=== PATIENT | female | born 1965 | race Caucasian/White ===

== ENCOUNTER 2018-03-24 19:01 | Observation (INO) | payer SELFPAY ==
[2018-03-24] MEDS ORDERED: FAMOTIDINE 20 MG/2 ML VIAL IV ONE (20:40)
[2018-03-24] MEDS ORDERED: FENTANYL CITR 100 MCG/2 ML ONE (20:40)
[2018-03-24] MEDS ORDERED: ONDANSETRON 4 MG/2 ML VIAL ONE (20:40)
[2018-03-24 20:42] LABS: Absolute Lymphocytes (CBC) 2.2 K/uL (0.7-4.9); Absolute Monocytes 0.3 K/uL (0.1-1.3); Absolute Neutrophil 3.5 K/uL (1.8-8.0); Basophils % 0.5 % (0-1.3); Eosinophils % 1.3 % (0-4.4); Hematocrit 33.4 % (36.0-45.0); Lymphocytes % 35.9 % (15.3-44.8); MCH 27.8 pg (27.0-35.0); MCV 83.3 fL (80-100); MPV 7.6 fL (7.6-11.3); Monocytes % 5.6 % (3.3-12.3); RBC Red Blood Cell Count 4.01 M/uL (3.86-4.86)
[2018-03-24 20:52] LABS: Urine Blood NEGATIVE (NEG); Urine Glucose 2+ (NEG); Urine Protein NEGATIVE (NEG); Urine Specific Gravity 1.005 (1.005-1.030)
--- NOTE | 2018-03-24 21:03 | RAD REPORT ---
EXAM DESCRIPTION: RAD - Chest Single View - 03/24/2018 8:17 pm CLINICAL HISTORY: Abdominal pain, abdominal distention COMPARISON: June 2014 TECHNIQUE: AP portable chest image was obtained 2010 hours . FINDINGS: Lungs are clear. Rounded nodule left base is likely nipple shadow. Heart and vasculature a re normal. No measurable pleural effusion and no pneumothorax. No acute bony abnormality seen. No acu te aortic findings suspected. IMPRESSION: No acute cardiopulmonary process.
[2018-03-24 21:07] LABS: Protime INR 1.06
[2018-03-24 21:08] LABS: ALT/SGPT 15 U/L (12-78); AST/SGOT 9 U/L (15-37); Albumin 3.9 g/dL (3.4-5.0); Alkaline Phosphatase 130 U/L (45-117); BUN Blood Urea Nitrogen 17 mg/dL (7-18); Bicarbonate 26 mmol/L (21-32); Bilirubin Direct 0.1 mg/dL (0-0.2); Bilirubin Total 0.3 mg/dL (0.2-1.0); Lipase 187 U/L (73-393); Magnesium 2.2 mg/dL (1.8-2.4); NT PRO-BNP 28 pg/mL (<125); Potassium 4.3 mmol/L (3.5-5.1); Protein, Total 8.2 g/dL (6.4-8.2); Sodium Level 130 mmol/L (136-145); Troponin (Emerg Dept Use Only) < 0.02 ng/mL (0.0-0.045)
[2018-03-24 21:16] LABS: Glucose Level 457 mg/dL (74-106)
[2018-03-24] MEDS ORDERED: INSULIN -REGULAR HUMAN 50 UNIT/0.5 ML ML ONE (23:20)
[2018-03-24] MEDS ORDERED: NA CHLORIDE 0.9% 1,000 ML ONE ×2 (23:21→23:24)
--- NOTE | 2018-03-25 00:41 | ER ---
Nurse's Notes [facility] Name: Melissa De Oliveira Age: 52 yrs Sex: Female : 1965 Arrival Date: 03/24/2018 Time: 19:04 Bed 26 Private MD: None, None Diagnosis: Abdominal tenderness;Gastritis, unspecified;Type 1 diabetes mellitus;Gastroparesis Presentation: 03/24 19:25 Presenting complaint: Patient states: that she has a knot to her epigastric area since Friday. Increased reflux and unable to eat solid food. Transition of care: patient was not received from another setting of care. Onset of symptoms was March 20, 2018. Risk Assessment: Do you want to hurt yourself or someone else? Patient reports no desire to harm self or others. Initial Sepsis Screen: Does the patient meet any 2 criteria? HR > 90 bpm. Yes Does the patient have a suspected source of infection? No. Patient's initial sepsis screen is negative. Care prior to arrival: None. 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 - Social history:: Smoking status: Patient/guardian denies using tobacco, Patient/guardian denies using alcohol. - Ebola Screening: : Patient negative for fever greater than or equal to 101.5 degrees Fahrenheit, and additional compatible Ebola Virus Disease symptoms Patient denies exposure to infectious person Patient denies travel to an Ebola-affected area in the 21 days before illness onset. - Family history:: not pertinent. Screenin:35 Abuse screen: Denies threats or abuse. Denies injuries from another. Nutritional kr2 screening: No deficits noted. Tuberculosis screening: No symptoms or risk factors identified. Fall Risk None identified. Assessment: 19:30 General: Appears in no apparent distress. uncomfortable, well groomed, well developed, kr2 well nourished, Behavior is calm, cooperative, appropriate for age. Pain: Complains of pain in left upper quadrant and right upper quadrant and epigastric area Pain does not radiate. Pain currently is 8 out of 10 on a pain scale. Quality of pain is described as sharp, shooting, Is continuous, Alleviated by nothing. Aggravated by increased activity. Neuro: Level of Consciousness is awake, alert, obeys commands, Oriented to person, place, time, situation, Appropriate for age. Cardiovascular: Capillary refill < 3 seconds in bilateral fingers Patient's skin is warm and dry. Respiratory: Airway is patent Respiratory effort is even, unlabored, Respiratory pattern is regular, symmetrical. GI: Bowel sounds present X 4 quads. Abd is soft X 4 quads Abdomen is tender to palpation in epigastric area, right upper quadrant and left upper quadrant Reports nausea. : Urine is clear. EENT: Nares are clear Oral mucosa is moist. Derm: Skin is intact, is healthy with good turgor, Skin is pink, warm \\T\\ dry. Musculoskeletal: Circulation, motion, and sensation intact. 20:58 Reassessment: Pt finished oral contrast for CT. CT notified. ed1 22:00 Reassessment: Patient appears in no apparent distress at this time. Patient and/or kr2 family updated on plan of care and expected duration. Pain level reassessed. Patient is alert, oriented x 3, equal unlabored respirations, skin warm/dry/pink. 23:25 Reassessment: Patient refused insulin, states, "my blood sugar drops too fast". kr2 Provider notified. 03/25 00:27 Reassessment: Patient appears in no apparent distress at this time. Patient and/or kr2 family updated on plan of care and expected duration. Pain level reassessed. Patient is alert, oriented x 3, equal unlabored respirations, skin warm/dry/pink. 01:23 Reassessment: Patient and/or family updated on plan of care and expected duration. Pain bb level reassessed. Patient is alert, oriented x 3, equal unlabored respirations, skin warm/dry/pink. pt resting quietly, IV site intact, patent with fluids infusing awaiting room assignment. 02:28 Reassessment: Patient and/or family updated on plan of care and expected duration. Pain bb level reassessed. IV site intact, patent, report called to Malika BETH for room 424. Vital Signs: 03/24 19:28 BP 126 / 77; Pulse 92; Resp 18; Temp 99.1(O); Pulse Ox 100% on R/A; Weight 47.63 kg fc (R); Height 5 ft. 4 in. (162.56 cm) (R); Pain 7/10; 21:00 BP 124 / 70; Pulse 76; Resp 17; Pulse Ox 100% on R/A; kr2 23:06 BP 134 / 92; Pulse 79; Resp 19; Pulse Ox 99% ; kr2 03/25 00:28 BP 128 / 66; Pulse 73; Resp 16; Pulse Ox 100% on R/A; kr2 01:24 BP 140 / 82; Pulse 79; Resp 16 S; Temp 97.9(O); Pulse Ox 100% on R/A; bb 02:28 BP 138 / 73; Pulse 74; Resp 16 S; Pulse Ox 96% on R/A; bb 03/24 19:28 Body Mass Index 18.02 (47.63 kg, 162.56 cm) ED Course: 03/24 19:04 Patient arrived in ED. mr 19:05 None, None is Private Physician. mr 19:26 Triage completed. fc 19:28 Arm band placed on left wrist. Patient placed in an exam room, on a stretcher. fc 19:30 Yogesh Jimenez MD is Attending Physician. thomas 19:35 Patient has correct armband on for positive identification. Bed in low position. Call kr2 light in reach. Side rails up X 1. Adult w/ patient. Pulse ox on. NIBP on. 20:18 XRAY Chest (1 view) In Process Unspecified. EDMS 20:46 EKG done, by ED staff. ag4 22:45 CT Abd/Pelvis - W/Contrast In Process Unspecified. EDMS 23:15 Jennifer Carolina, KIRIT is Primary Nurse. kr2 03/25 00:40 Debby Marinelli MD is Hospitalizing Provider. thomas 01:24 No provider procedures requiring assistance completed. Patient admitted, IV remains in bb place. Administered Medications: 03/24 20:41 Drug: Zofran 4 mg Route: IVP; Site: right forearm; kr2 23:21 Follow up: Response: No adverse reaction; Nausea is decreased kr2 20:42 Drug: Pepcid 20 mg Route: IVP; Site: right forearm; kr2 23:22 Follow up: Response: No adverse reaction kr2 20:42 Drug: fentaNYL (PF) 25 mcg Route: IVP; Site: right forearm; kr2 21:00 Follow up: Response: No adverse reaction kr2 23:03 Drug: fentaNYL (PF) 25 mcg Route: IVP; Site: right forearm; kr2 23:22 Follow up: Response: No adverse reaction kr2 23:21 Drug: NS 0.9% 1000 ml Route: IV; Rate: 1 bolus; Site: right forearm; kr2 03/25 00:31 Follow up: Response: No adverse reaction; IV Status: Completed infusion kr2 03/24 23:21 Drug: NS 0.9% 1000 ml Route: IV; Rate: 1 bolus; Site: right antecubital; kr2 03/25 00:30 Follow up: Response: No adverse reaction; IV Status: Completed infusion kr2 03/24 23:21 Not Given (Patient Refused): Insulin Regular Human 10 units IVP once kr2 23:21 Not Given (Patient Refused): Insulin Regular Human 10 units Sub-Q once kr2 23:26 Not Given (Patient Refused): Insulin Regular Human 5 units Sub-Q once kr2 23:27 Not Given (Patient Refused): Insulin Regular Human 5 units IVP once kr2 12 00:50 Drug: ProTONIX 40 mg Route: IVP; Site: right antecubital; kr2 02:27 Follow up: Response: No adverse reaction bb 00:50 Drug: fentaNYL (PF) 25 mcg Route: IVP; Site: right antecubital; kr2 02:27 Follow up: Response: No adverse reaction bb Point of Care Testing: Blood Glucose: 03/24 23:23 Blood Glucose: 281 mg/dL; kr2 03/25 00:27 Blood Glucose: 239 mg/dL; kr2 Ranges: Outcome: 00:41 Decision to Hospitalize by Provider. thomas 01:24 Instructed on the need for admit. natasha 02:26 Admitted to Tele accompanied by tech, via stretcher, room 424, on monitor, Report bb called to Malika BETH 02:26 Condition: stable 02:38 Patient left the ED. natasha Signatures: Dispatcher [employer] EDYogesh Sainz MD MD cha Rivera, Silvina mr Aruntrent, Sangeetha, RN RN Rylie Amador RN RN Zoraida Robb, CUSTOMER CONTACT SPECIALIST CUSTOMER CONTACT SPECIALIST ed1 Jennifer Carolina RN RN kr2 Billy, Wade ag4
--- NOTE | 2018-03-25 00:42 | EDPHYS ---
Physician Documentation [facility] Name: Melissa De Oliveira Age: 52 yrs Sex: Female : 1965 Arrival Date: 03/24/2018 Time: 19:04 Bed 26 Private MD: None, None ED Physician Yogesh Jimenez HPI: 03/24 19:56 This 52 yrs old Female presents to ER via Ambulatory with complaints of thomas Abdominal Swelling. 19:56 The patient presents with abdominal pain in the epigastric area, in the upper abdomen. thomas Onset: The symptoms/episode began/occurred 3 day(s) ago. The symptoms do not radiate. Associated signs and symptoms: none. The symptoms are described as crampy, steady. Modifying factors: The symptoms are alleviated by nothing, the symptoms are aggravated by food. Severity of pain: At its worst the pain was mild moderate in the emergency department the pain is unchanged. The patient has not experienced similar symptoms in the past. 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 - Social history:: Smoking status: Patient/guardian denies using tobacco, Patient/guardian denies using alcohol. - Ebola Screening: : Patient negative for fever greater than or equal to 101.5 degrees Fahrenheit, and additional compatible Ebola Virus Disease symptoms Patient denies exposure to infectious person Patient denies travel to an Ebola-affected area in the 21 days before illness onset. - Family history:: not pertinent. ROS: 19:56 Constitutional: Negative for fever, chills, and weight loss, Eyes: Negative for injury, thomas pain, redness, and discharge, ENT: Negative for injury, pain, and discharge, Neck: Negative for injury, pain, and swelling, Cardiovascular: Negative for chest pain, palpitations, and edema, Respiratory: Negative for shortness of breath, cough, wheezing, and pleuritic chest pain, Back: Negative for injury and pain, : Negative for injury, bleeding, discharge, and swelling, MS/Extremity: Negative for injury and deformity, Skin: Negative for injury, rash, and discoloration, Neuro: Negative for headache, weakness, numbness, tingling, and seizure, Psych: Negative for depression, anxiety, suicide ideation, homicidal ideation, and hallucinations, Allergy/Immunology: Negative for hives, rash, and allergies, Endocrine: Negative for neck swelling, polydipsia, polyuria, polyphagia, and marked weight changes, Hematologic/Lymphatic: Negative for swollen nodes, abnormal bleeding, and unusual bruising. 19:56 Abdomen/GI: Positive for abdominal pain, nausea, of the epigastric area, right upper quadrant and left upper quadrant. Exam: 19:56 Constitutional: This is a well developed, well nourished patient who is awake, alert, thomas and in no acute distress. Head/Face: Normocephalic, atraumatic. Eyes: Pupils equal round and reactive to light, extra-ocular motions intact. Lids and lashes normal. Conjunctiva and sclera are non-icteric and not injected. Cornea within normal limits. Periorbital areas with no swelling, redness, or edema. ENT: Nares patent. No nasal discharge, no septal abnormalities noted. Tympanic membranes are normal and external auditory canals are clear. Oropharynx with no redness, swelling, or masses, exudates, or evidence of obstruction, uvula midline. Mucous membranes moist. Neck: Trachea midline, no thyromegaly or masses palpated, and no cervical lymphadenopathy. Supple, full range of motion without nuchal rigidity, or vertebral point tenderness. No Meningismus. Chest/axilla: Normal chest wall appearance and motion. Nontender with no deformity. No lesions are appreciated. Cardiovascular: Regular rate and rhythm with a normal S1 and S2. No gallops, murmurs, or rubs. Normal PMI, no JVD. No pulse deficits. Respiratory: Lungs have equal breath sounds bilaterally, clear to auscultation and percussion. No rales, rhonchi or wheezes noted. No increased work of breathing, no retractions or nasal flaring. Back: No spinal tenderness. No costovertebral tenderness. Full range of motion. Skin: Warm, dry with normal turgor. Normal color with no rashes, no lesions, and no evidence of cellulitis. MS/ Extremity: Pulses equal, no cyanosis. Neurovascular intact. Full, normal range of motion. Neuro: Awake and alert, GCS 15, oriented to person, place, time, and situation. Cranial nerves II-XII grossly intact. Motor strength 5/5 in all extremities. Sensory grossly intact. Cerebellar exam normal. Normal gait. Psych: Awake, alert, with orientation to person, place and time. Behavior, mood, and affect are within normal limits. 19:56 Abdomen/GI: Inspection: abdomen appears normal, Bowel sounds: normal, Palpation: mild abdominal tenderness, in the epigastric area, right upper quadrant and left upper quadrant. Vital Signs: 19:28 BP 126 / 77; Pulse 92; Resp 18; Temp 99.1(O); Pulse Ox 100% on R/A; Weight 47.63 kg (R); Height 5 ft. 4 in. (162.56 cm) (R); Pain 7/10; 21:00 BP 124 / 70; Pulse 76; Resp 17; Pulse Ox 100% on R/A; kr2 23:06 BP 134 / 92; Pulse 79; Resp 19; Pulse Ox 99% ; kr2 12 00:28 BP 128 / 66; Pulse 73; Resp 16; Pulse Ox 100% on R/A; kr2 01:24 BP 140 / 82; Pulse 79; Resp 16 S; Temp 97.9(O); Pulse Ox 100% on R/A; bb 02:28 BP 138 / 73; Pulse 74; Resp 16 S; Pulse Ox 96% on R/A; bb 03/24 19:28 Body Mass Index 18.02 (47.63 kg, 162.56 cm) MDM: 03/24 19:30 Patient medically screened. [facility] 19:58 Data reviewed: vital signs, nurses notes, lab test result(s), EKG, radiologic studies. [facility] 03/24 19:55 Order name: Urine Dipstick--Ancillary (enter results); Complete Time: 21:09 03/24 19:55 Order name: Basic Metabolic Panel; Complete Time: 22:40 [facility] 03/24 19:55 Order name: CBC with Diff; Complete Time: 20:47 [facility] 03/24 19:55 Order name: LFT's; Complete Time: 22:40 [facility] 03/24 19:55 Order name: Magnesium; Complete Time: 22:40 [facility] 03/24 19:55 Order name: NT PRO-BNP; Complete Time: 22:40 [facility] 03/24 19:55 Order name: PT-INR; Complete Time: 21:09 [facility] 03/24 19:55 Order name: Troponin (emerg Dept Use Only); Complete Time: 22:40 [facility] 03/24 19:55 Order name: XRAY Chest (1 view); Complete Time: 21:09 [facility] 03/24 19:55 Order name: Lipase; Complete Time: 22:40 [facility] 03/24 19:55 Order name: CT Abd/Pelvis - W/Contrast [facility] 03/24 19:55 Order name: Urine Culture [facility] 03/24 19:55 Order name: EKG; Complete Time: 19:57 [facility] 03/24 19:55 Order name: Cardiac monitoring; Complete Time: 20:43 [facility] 03/24 19:55 Order name: EKG - Nurse/Tech; Complete Time: 20:43 [facility] 03/24 19:55 Order name: IV Saline Lock; Complete Time: 20:43 [facility] 03/24 19:55 Order name: Labs collected and sent; Complete Time: 20:43 [facility] 03/24 19:55 Order name: O2 Per Protocol; Complete Time: 20:43 [facility] 03/24 19:55 Order name: O2 Sat Monitoring; Complete Time: 20:43 [facility] 03/24 19:55 Order name: Urine Dipstick-Ancillary (obtain specimen); Complete Time: 20:43 [facility] Administered Medications: 20:41 Drug: Zofran 4 mg Route: IVP; Site: right forearm; kr2 23:21 Follow up: Response: No adverse reaction; Nausea is decreased kr2 20:42 Drug: Pepcid 20 mg Route: IVP; Site: right forearm; kr2 23:22 Follow up: Response: No adverse reaction kr2 20:42 Drug: fentaNYL (PF) 25 mcg Route: IVP; Site: right forearm; kr2 21:00 Follow up: Response: No adverse reaction kr2 23:03 Drug: fentaNYL (PF) 25 mcg Route: IVP; Site: right forearm; kr2 23:22 Follow up: Response: No adverse reaction kr2 23:21 Drug: NS 0.9% 1000 ml Route: IV; Rate: 1 bolus; Site: right forearm; kr2 03/25 00:31 Follow up: Response: No adverse reaction; IV Status: Completed infusion kr2 03/24 23:21 Drug: NS 0.9% 1000 ml Route: IV; Rate: 1 bolus; Site: right antecubital; kr2 03/25 00:30 Follow up: Response: No adverse reaction; IV Status: Completed infusion kr2 03/24 23:21 Not Given (Patient Refused): Insulin Regular Human 10 units IVP once kr2 23:21 Not Given (Patient Refused): Insulin Regular Human 10 units Sub-Q once kr2 23:26 Not Given (Patient Refused): Insulin Regular Human 5 units Sub-Q once kr2 23:27 Not Given (Patient Refused): Insulin Regular Human 5 units IVP once kr2 03/25 00:50 Drug: ProTONIX 40 mg Route: IVP; Site: right antecubital; kr2 02:27 Follow up: Response: No adverse reaction bb 00:50 Drug: fentaNYL (PF) 25 mcg Route: IVP; Site: right antecubital; kr2 02:27 Follow up: Response: No adverse reaction bb Point of Care Testing: Blood Glucose: 03/24 23:23 Blood Glucose: 281 mg/dL; kr2 03/25 00:27 Blood Glucose: 239 mg/dL; kr2 Ranges: Critical Glucose Levels:Adult <50 mg/dl or >400 mg/dl <40 mg/dl or >180 mg/dl Disposition: 03/25/18 00:41 Hospitalization ordered by Debby Marinelli for Observation. Preliminary diagnosis are Abdominal tenderness, Gastritis, unspecified, Type 1 diabetes mellitus, Gastroparesis. - Bed requested for Telemetry/MedSurg (observation). - Status is Observation. bb - Condition is Stable. - Problem is new. - Symptoms have improved. UTI on Admission? No Signatures: Dispatcher [employer] EDMS Mayi Hooks RN RN mw Anderson, Corey, MD MD cha Chretien, Felicia RN Rylie Yarbrough RN RN bb Reaves, Karey, RN RN kr2 Corrections: (The following items were deleted from the chart) 00:55 00:41 Hospitalization Ordered by Debby Marinelli MD for Observation. Preliminary diagnosis is Abdominal tenderness; Gastritis, unspecified; Type 1 diabetes mellitus; Gastroparesis. Bed requested for Telemetry/MedSurg (observation). Status is Observation. Condition is Stable. Problem is new. Symptoms have improved. UTI on Admission? No. thomas 02:38 00:55 03/25/2018 00:41 Hospitalization Ordered by Debby Marinelli MD for Observation. bb Preliminary diagnosis is Abdominal tenderness; Gastritis, unspecified; Type 1 diabetes mellitus; Gastroparesis. Bed requested for Telemetry/MedSurg (observation). Status is Observation. Condition is Stable. Problem is new. Symptoms have improved. UTI on Admission? No. mw
[2018-03-25] MEDS ORDERED: FAMOTIDINE 20 MG/2 ML VIAL IV ONE (00:54)
[2018-03-25] MEDS ORDERED: NA CHLORIDE 0.9% 1,000 ML ONE (00:57)
--- NOTE | 2018-03-25 01:28 | P.HP ---
Certification for Inpatient Patient admitted to: Observation With expected LOS: <2 Midnights Practitioner: I am a practitioner with admitting privileges, knowledge of patient current condition, hospital course, and medical plan of care. Services: Services provided to patient in accordance with Admission requirements found in Title 42 Section 412.3 of the Code of Federal Regulations Patient History Date of Service: 03/25/18 Reason for admission: abdominal pain History of Present Illness: Ms De Oliveira is a 52 years old woman with history of IDDM, who presented to ED complaining of abdominal pain. Her symptoms started about 4 days ago, the pain is localized on epigastric area, no radiation, 8/10, burning sensation. She feels like a not in epigastric area. The patient has had nausea and vomiting, denied diarrhea and fever but she has had chills. The patient is not able to keep down solid food, but no problem with liquids. She has never had this pain in the past. Lab work remarkable for normal WBC count. BS 457, CT abd/pelvis report gastritis. Allergies morphine Allergy (Unverified 07/20/14 11:45) Unknown Home medications list reviewed: Yes - Past Medical/Surgical History -: DM I -: cholecystectomy -: hysterectomy -: appendectomy -: - Family History Family History: Reviewed- Non-Contributory - Social History Smoking Status: Former smoker Alcohol use: No CD- Drugs: No Place of Residence: Home Review of Systems 10-point ROS is otherwise unremarkable Physical Examination - Physical Exam General: Alert, In no apparent distress HEENT: Atraumatic, PERRLA, Mucous membr. moist/pink, EOMI, Sclerae nonicteric Neck: Supple, 2+ carotid pulse no bruit, No LAD, Without JVD or thyroid abnormality Respiratory: Clear to auscultation bilaterally, Normal air movement Cardiovascular: Regular rate/rhythm, Normal S1 S2 Gastrointestinal: Normal bowel sounds, Tenderness (epigastric area) Musculoskeletal: No tenderness Integumentary: No rashes Neurological: Normal speech, Normal strength at 5/5 x4 extr, Normal tone, Normal affect Lymphatics: No axilla or inguinal lymphadenopathy - Studies Laboratory Data (last 24 hrs) 03/24/18 20:34: PT 12.5, INR 1.06 03/24/18 20:34: WBC 6.2, Hgb 11.1 L, Hct 33.4 L, Plt Count 367 03/24/18 20:34: Sodium 130 L, Potassium 4.3, BUN 17, Creatinine 0.80, Glucose 457 H*, Magnesium 2.2, Total Bilirubin 0.3, AST 9 L, ALT 15, Alkaline Phosphatase 130 H, Lipase 187 Assessment and Plan - Problems (Diagnosis) (1) Gastritis Current Visit: Yes Status: Acute (2) Diabetes mellitus Current Visit: Yes Status: Acute Qualifiers: Diabetes mellitus type: type 1 Diabetes mellitus complication status: with unspecified complications Qualified Code(s): E10.8 - Type 1 diabetes mellitus with unspecified complications - Plan The patient will be admitted to the hospital due to gastritis. Will start PPI treatment, consult GI for evaluation and recommendations. - Advance Directives Does patient have a Living Will: No Does patient have a Durable POA for Healthcare: No - Code Status/Comfort Care Code Status Assessed: Yes Code Status: Full Code
[2018-03-25] MEDS ORDERED: ONDANSETRON 4 MG/2 ML VIAL IV PRN (02:24)
[2018-03-25] MEDS ORDERED: SODIUM CHLORIDE 0.9% 10ML INJ IV PRN (02:24)
[2018-03-25] MEDS: NA CHLORIDE 0.9% 1,000 ML IV SCH ×4 (03:09→22:24)
[2018-03-25 03:38] VITALS: BMI 18.0
[2018-03-25] MEDS: CALCIUM CARBONATE CHEW 500MG TAB PO PRN ×2 (03:49→17:18)
--- NOTE | 2018-03-25 06:59 | EKG ---
Test Date: 2018-03-24 Test Time: 20:25:46 Radar Tester: AG3 MEASUREMENT RESULTS: Intervals: Rate: 76 TX: 126 QRSD: 70 QT: 392 QTc: 441 [place]: P: 57 TX: 126 QRS: 67 T: 69 INTERPRETIVE STATEMENTS: Normal sinus rhythm Normal ECG Compared to ECG 03/24/2018 20:22:59 No significant changes Electronically Signed On 03-25-18 10:37:47 ELEMENTARY SCHOOL SCIENCE TEACHER by Thierno Nevarez
--- NOTE | 2018-03-25 07:29 | RAD REPORT ---
EXAM DESCRIPTION: CT - Abdomen Pelvis W Contrast - 03/25/2018 2:16 am CLINICAL HISTORY: Abdominal pain. COMPARISON: None. TECHNIQUE: Computed axial tomography of the abdomen and pelvis was obtained. 100 cc Isovue-300 is ad ministered intravenously. Oral contrast was given. Preliminary report generated by virtual radiologic and review prior to dictation All CT scans are performed using dose optimization technique as appropriate and may include automated exposure control or mA/KV adjustment according to patient size. FINDINGS: The gallbladder has been removed The liver, spleen, pancreas, adrenals and kidneys appear unremarkable. The appendix is not visualized. There is no evidence of diverticulitis A hysterectomy has been performed Wall of the distal stomach appears mildly thickened. A moderate amount stool within the colon IMPRESSION: Apparent mild thickening of the wall of the distal stomach may indicate gastritis
[2018-03-25] MEDS: INSULIN -REGULAR HUMAN 50 UNIT/0.5 ML ML SQ SCH ×4 (07:30→20:50)
[2018-03-25] MEDS: PANTOPRAZOLE 40 MG INJ IVP SCH ×2 (08:45→20:50)
[2018-03-25] MEDS ORDERED: MORPHINE 2 MG/ML SYR IV ONE (10:22)
[2018-03-25] MEDS ORDERED: PROPOFOL 200 MG/20 ML VIAL IV ONE (14:52)
[2018-03-25 15:19] VITALS: O2SAT 98
[2018-03-25] MEDS: SUCRALFATE 1 GM TABLET PO SCH ×2 (16:34→20:50)
[2018-03-25] MEDS: ONDANSETRON 4 MG/2 ML VIAL IV PRN ×2 (16:43→20:50)
--- NOTE | 2018-03-25 19:22 | PN ---
Date of Progress Note: 03/25/2018 Subjective: Patient seen and examined. Chart reviewed and case discussed with RN and Dr. Ayala. The patient is going for EGD today. Does report some discomfort in the epigastric region. Code Status: Full. Medications: List reviewed. Physical Examination: Vital Signs: Temperature 97.6, heart rate 90, blood pressure 139/75, respirations 16, O2 99% on room air. General: Awake, alert, oriented x3. Some mild distress. Ill-appearing female, cachectic, BMI 18. CV: S1, S2. Regular rate and rhythm. No murmurs. Respiratory: Moving air well bilaterally. No wheezing or stridor. Gastrointestinal: Abdomen is soft. Mild tenderness to palpation in the epigastric region. No rebou nd or guarding. No distention. Positive bowel sounds. Extremities: No clubbing, cyanosis, or edema. Neurologic: Nonfocal. Laboratory Data: Hemoglobin A1c greater than 16%. Glucose 210 and 237. Urine culture pending. CT scan of the abdomen and pelvis personally reviewed shows apparent mild thickening of the wall of the distal stomach, may indicate gastritis. Chest x-ray personally reviewed, shows no cardiopulmonary pr ocess. Assessment And Plan: A 52-year-old female with: 1.Acute gastritis. We will continue with IV PPI. GI has been consulted. The patient going for EGD today. 2.Diabetes mellitus type 1 with hyperglycemia. We will continue sliding scale insulin, resume home dose. 3.Hyponatremia. Sodium 130, likely pseudohyponatremia due to elevated glucose level. 4.Gastrointestinal and deep vein thrombosis prophylaxis with proton pump inhibitors and sequential c ompression devices. No chemical anticoagulation due to any procedure. 5.Likely discharge in the next 24 to 48 hours. The patient will need diabetic education. Adjust in sulin and medications. SA/MODL Voice ID: [id number] Report ID: [id number]
[2018-03-25] MEDS: ROPINIROLE HCL 0.25 MG TAB PO SCH (20:50)
[2018-03-25] MEDS: MORPHINE 2 MG/ML SYR IV PRN (22:04)
--- NOTE | 2018-03-26 03:02 | OP ---
Surgeon: Noe Ayala MD Procedure To Be Performed: Esophagogastroduodenoscopy. Performing Physician: Noe Ayala M.D. Indication For Procedure: Abnormal CT showing thickening of the stomach and intractable nausea, vomi ting. Plan For Anesthesia: Monitored anesthesia care. Complexity: Average. Technique: After obtaining informed consent from the patient and explaining risks and complications which include, but are not limited to bleeding, infection, perforation, and anesthesia complications, the patient was placed in a left lateral position and sedation was given. From then on, the scope w as advanced to the mouth and carefully guided up till the second portion of the duodenum. After the completion of examination and diagnostic maneuvers, the scope and equipment were withdrawn and the pr ocedure was terminated in a safe manner. Findings: Esophagus: In the mid and distal esophagus, there was evidence of LA grade B esophagitis that extended from distal to mid esophagus. A small hiatal hernia was seen as well. Biopsies were t aken from the esophagus. Stomach: There was moderate amount of retained bilious material. This was suctioned. Moderate patchy erythema was seen in the body and antrum. Biopsies were taken. No evid ence of neoplastic process or ulceration in the entire stomach. Duodenum: The bulb and second porti on appeared normal. Complications: None. Tolerance To Anesthesia: Excellent. Postoperative Diagnoses: Esophagitis, hiatal hernia, and gastritis. Plan: 1.Await pathology results. 2.Follow up in the GI clinic in 2 weeks. 3.We will add Carafate to her oral PPI. Strict control of diabetes as that is likely the contributo r. US/MODL Voice ID: [id number] Report ID: [id number]
[2018-03-26] MEDS: MORPHINE 2 MG/ML SYR IV PRN ×3 (04:11→22:34)
[2018-03-26] MEDS: ONDANSETRON 4 MG/2 ML VIAL IV PRN ×3 (04:11→22:34)
[2018-03-26 04:30] LABS: Absolute Lymphocytes (CBC) 1.7 K/uL (0.7-4.9); Absolute Monocytes 0.5 K/uL (0.1-1.3); Absolute Neutrophil 3.8 K/uL (1.8-8.0); Basophils % 0.6 % (0-1.3); Eosinophils % 1.8 % (0-4.4); Hematocrit 30.4 % (36.0-45.0); Lymphocytes % 27.4 % (15.3-44.8); MCH 28.2 pg (27.0-35.0); MCV 82.1 fL (80-100); Monocytes % 7.8 % (3.3-12.3)
[2018-03-26 04:31] LABS: BUN Blood Urea Nitrogen 7 mg/dL (7-18); Bicarbonate 21 mmol/L (21-32); Glucose Level 121 mg/dL (74-106); Potassium 3.7 mmol/L (3.5-5.1); Sodium Level 139 mmol/L (136-145)
[2018-03-26] MEDS: INSULIN -REGULAR HUMAN 50 UNIT/0.5 ML ML SQ SCH ×4 (07:30→21:00)
[2018-03-26] MEDS: PANTOPRAZOLE 40 MG INJ IVP SCH ×2 (08:30→20:54)
[2018-03-26] MEDS: SUCRALFATE 1 GM TABLET PO SCH ×4 (08:30→20:55)
[2018-03-26] MEDS: CALCIUM CARBONATE CHEW 500MG TAB PO PRN (08:31)
[2018-03-26] MEDS: NA CHLORIDE 0.9% 1,000 ML IV SCH ×3 (08:33→22:37)
[2018-03-26] MEDS: PREGABALIN 50 MG CAP PO SCH (08:43)
[2018-03-26] MEDS ORDERED: POTASSIUM CL SA 10 MEQ TAB PO ONE (09:00)
[2018-03-26] MEDS: INSULIN GLARGINE 100 UNITS/ML SQ SCH (09:00)
[2018-03-26] MEDS: METOCLOPRAMIDE 10 MG/2mL INJ IV SCH ×2 (10:14→15:33)
[2018-03-26] MEDS ORDERED: CEFTRIAXONE 1 GM/NS 50 ML 1 GM/50 ML BAG IV SCH (16:31)
[2018-03-26] MEDS ORDERED: CEFTRIAXONE/SWI 1gm 1 GM/10 ML SYR IV SCH (17:00)
[2018-03-26] MEDS: ENSURE CLEAR 200 ML CAN PO SCH (20:55)
[2018-03-26] MEDS: ROPINIROLE HCL 0.25 MG TAB PO SCH (21:08)
[2018-03-26] MEDS: METOCLOPRAMIDE 10MG/10ML UCUP PO SCH (21:27)
--- NOTE | 2018-03-26 21:35 | PN ---
Date of Progress Note: 03/26/2018 Subjective: The patient is seen and examined. Chart reviewed and case discussed with RN. The patient states that she is unable to tolerate her clear liquid diet, having dry heaves and any significant nausea. Medications: List reviewed. Physical Examination: Vital Signs: Temperature 98, heart rate 85, blood pressure 103/51, respirations 15, O2 98% on room air. General: Awake, alert, and oriented x3, in some mild distress, appears older than stated age, ill-appearing female, cachectic. BMI 18. CV: S1, S2. Peripheral pulses present. Regular rate and rhythm. Respiratory: Moving air well bilaterally. No wheezes or stridor. Gastrointestinal: Abdomen is soft. Minimal tenderness to palpation in the epigastric region. No rebound or guarding. Bowel sounds positive. No distention. Extremities: No clubbing, cyanosis, or edema. Neuro: Nonfocal. Laboratory Data: Sodium 139, potassium 3.7, chloride 108, CO2 21, BUN 7, creatinine 0.5, glucose 121,. WBC 6.1, H and H 10.4 and 30.4, platelets 320, neutrophils 62%. Assessment And Plan: 1. A 52-year-old female with epigastric abdominal pain. 2. Acute gastritis status post esophagogastroduodenoscopy. We will continue with IV PPI and Carafate. 3. Diabetes mellitus type 2 with hyperglycemia. We will continue sliding scale insulin. Uncontrolled hemoglobin, A1c greater than 16. The patient is unable to tolerate her diet. We will adjust Lantus dose. 4. Hyponatremia, likely pseudohyponatremia due to elevated blood glucose levels, normalized. 5. GI/DVT prophylaxis with PPI and SCDs. No chemical anticoagulation due to gastritis. Plan: Discharge will be in next 24-48 hours depending on clinical response. We will add Reglan for possible gastroparesis and advance diet as tolerated. SA/MODL Voice ID: [id number] Report ID: [id number] [facility]
[2018-03-27] MEDS: METOCLOPRAMIDE 10MG/10ML UCUP PO SCH ×2 (04:31→09:47)
[2018-03-27 07:07] LABS: BUN Blood Urea Nitrogen 3 mg/dL (7-18); Bicarbonate 22 mmol/L (21-32); Glucose Level 142 mg/dL (74-106); Potassium 3.6 mmol/L (3.5-5.1); Sodium Level 140 mmol/L (136-145)
[2018-03-27] MEDS ORDERED: POTASSIUM CL SA 10 MEQ TAB PO ONE (07:21)
[2018-03-27] MEDS: INSULIN -REGULAR HUMAN 50 UNIT/0.5 ML ML SQ SCH (07:30)
[2018-03-27] MEDS: INSULIN GLARGINE 100 UNITS/ML SQ SCH (08:14)
[2018-03-27] MEDS: PANTOPRAZOLE 40 MG INJ IVP SCH (08:15)
[2018-03-27] MEDS: SUCRALFATE 1 GM TABLET PO SCH (08:15)
[2018-03-27] MEDS: PREGABALIN 50 MG CAP PO SCH (08:17)
[2018-03-27] MEDS: ENSURE CLEAR 200 ML CAN PO SCH (08:20)
[2018-03-27 08:31] VITALS: BP 122/62; TEMP 98.9
--- NOTE | 2018-03-28 14:16 | DS ---
Date of Discharge: 03/27/2018 Consultants: Dr. Ayala with GI. Procedures: On 03/25/2018, esophagogastroduodenoscopy. Postoperative Diagnoses: Esophagitis, hiatal hernia, gastritis. Discharge Diagnoses: 1. Acute gastritis. 2. Diabetes mellitus type 2 with hyperglycemia, uncontrolled hemoglobin A1c greater than 16, insulin-requiring. 3. Pseudohyponatremia due to elevated glucose levels, improved. 4. Esophagitis. 5. Hiatal hernia. 6. Acute cystitis Hospital Course: Patient is a 52-year-old female with past medical history of diabetes mellitus type 2, on insulin, who comes in with abdominal pain. Patient was seen by GI. She was found to have gastritis on CT scan of the abdomen and pelvis. EGD was done by Dr. Ayala as mentioned above, found to have gastritis, esophagitis, and hiatal hernia. Patient was continued on PPI therapy as well as Carafate. Regarding her hemoglobin A1c, it was greater than 16%. Patient's blood sugars were not well controlled when she came in with greater than 457. Patient was counseled regarding her diabetes. Diabetic education was set up. Patient's insulin was adjusted. She was noncompliant with her insulin dose, supposed to take 35 units at home, which will be resumed upon discharge. Patient was also found to have UTI secondary to Klebsiella pneumonia, which was pansensitive. Patient was treated with IV antibiotics. Patient did well after being introduced to Reglan as patient does likely have gastroparesis resulting from her poorly controlled diabetes. Patient understands the risks associated and side effects associated with Reglan. She understands that medication should be used for a short duration of time and as her diabetes improves, she should not require as much. She was instructed to watch for signs of side effects of Reglan. She was understanding at this juncture, the benefits outweigh the risks due to her severe gastroparesis. Patient was then cleared for discharge as she was tolerating her diet and did not have any further abdominal pain and no bleeding, no melena. Patient was discharged home in a stable condition. Activity: As tolerated. Medications: As per medication reconciliation list. Patient's course of cefuroxime for UTI. Followup: Follow up with primary care physician in [place] 2-3 days. Follow up with GI, Dr. Ayala, in 2 weeks. She will look for diabetic education at outside facility. Return to ER for worsening condition. Diet: Diabetic diet. Activity: As tolerated. Physical Examination: General: Awake, alert, and oriented. No acute distress. Cardiovascular: S1, S2. No murmurs. Respiratory: Moving air well, bilaterally. Abdomen: Soft, nontender, nondistended. Positive bowel sounds. Extremities: No clubbing, cyanosis, or edema. Neurologic: Nonfocal. SA/MODL Voice ID: [id number] Report ID: [id number] [facility]ENTER[facility]annah
== END 2018-03-27 10:44 | disposition home or self-care (01) ==
LOC: ER 19:01 → ERHOLD 03-25 01:14 → 4TH 03-25 02:28
PROVIDERS: ADMIT Internal Medicine; ATTEND Internal Medicine
PROC: 0DB68ZX Excision of Stomach, Via Natural or Artificial Opening Endoscopic, Diagnostic (ICD-10-PCS; 2018-03-25)
PROC: 0DB58ZX Excision of Esophagus, Via Natural or Artificial Opening Endoscopic, Diagnostic (ICD-10-PCS; principal; 2018-03-25 12:00)
DX: K29.00 Acute gastritis without bleeding (principal); K44.9 Diaphragmatic hernia without obstruction or gangrene; K20.9 Esophagitis, unspecified; N30.00 Acute cystitis without hematuria; B96.1 Klebsiella pneumoniae [K. pneumoniae] as the cause of diseases classified elsewhere; E11.65 Type 2 diabetes mellitus with hyperglycemia; E87.1 Hypo-osmolality and hyponatremia
CPT/HCPCS: 36415; 71045; 74177; 80048; 80076; 81003; 82962; 83036; 83690; 83735; 83880; 84484; 85025; 85610; 87077; 87086; 87088; 87186; 88305; 88312; 93005; 99285; C9113; G0378; J0696; J2270; J2405; J2704; J2765; J3010; J7030; Q9967

== ENCOUNTER 2018-08-15 14:41 | Emergency (ER) | payer SELFPAY ==
--- OUTSIDE RECORDS SUMMARY | 2018-08-15 14:43 | XMS REPORT | Clinical Summary ---
:1965 Author Organization [facility] Address [address] [place] [address] Care Team Providers Name Role Phone Denae Primary Care Provider Allergies Active Allergy Reactions Severity Noted Date Comments Methylphenidate 05/07/2016 Medications Medication Sig Dispensed Refills Start Date End Date Status insulin glargine Inject 0 Active (LANTUS) 100 unit/mL subcutaneously injection nightly. Use as directed rOPINIRole (REQUIP) Take 1 mg by mouth 0 Active 1 MG tablet 3 (three) times daily. pregabalin (LYRICA) Take 50 mg by mouth 0 Active 50 MG capsule 3 (three) times daily. ondansetron (ZOFRAN) Take 1 tablet (4 mg 12 tablet 0 09/22/2017 4 MG tablet total) by mouth 8 every 6 (six) hours for 7 days. sulfamethoxazole-tri Take 1 tablet (160 14 tablet 0 09/22/2017 methoprim (BACTRIM mg of trimethoprim 8 DS) 800-160 mg per total) by mouth 2 tablet (two) times daily for 7 days smx-tmp DS (BACTRIM) 800-160 mg tabs (1tab q12 D10). nitrofurantoin, Take 1 capsule (100 14 capsule 0 10/07/2017 macrocrystal-monohyd mg total) by mouth 8 rate, (MACROBID) 100 2 (two) times daily MG capsule for 7 days. acetaminophen-codein Take 1 tablet by 9 tablet 0 10/07/2017 e (TYLENOL #3) mouth every 6 (six) 8 300-30 mg per tablet hours as needed for Pain for up to 3 days. Max Daily Amount: 4 tablets ondansetron Take 1 tablet (4 mg 20 tablet 0 10/07/2017 (ZOFRAN-ODT) 4 MG total) by mouth 8 disintegrating every 8 (eight) tablet hours as needed for Nausea for up to 7 days. Active Problems Not on file Encounters Date Type Specialty Care Team Description 10/06/2017 - Emergency Emergency Medicine Princess Livingston Neck sprain, initial encounter (Primary Dx); 10/07/2017 MD Bhaivk Hyperglycemia without ketosis; Acute cystitis without hematuria; Non-intractable vomiting with nausea, unspecified vomiting type 09/22/2017 Emergency Emergency Medicine Sabrina Jaimes DO Acute cystitis without hematuria (Primary Dx); Generalized abdominal pain; Hyperglycemia; Nausea; Dehydration 09/22/2017 Orders Only General Internal Medicine after 08/14/2017 Social History Tobacco Use Types Packs/Day Years Used Date Never Smoker Smokeless Tobacco: Never Used Alcohol Use Drinks/Week oz/Week Comments No Sex Assigned at Date Recorded Not on file Job Start Date Occupation Industry Not on file Not on file Not on file Travel History Travel Start Travel End No recent travel history available. Last Filed Vital Signs Vital Sign Reading Time Taken Blood Pressure 120/66 10/07/2017 1:02 AM CDT Pulse 80 10/07/2017 1:02 AM CDT Temperature 37.2 C (99 F) 10/07/2017 1:02 AM CDT Respiratory Rate 18 10/07/2017 1:02 AM CDT Oxygen Saturation 100% 10/07/2017 1:02 AM CDT Inhaled Oxygen Concentration - - Weight 48.1 kg (106 lb) 10/06/2017 9:03 PM CDT Height 162.6 cm (5' 4") 10/06/2017 9:03 PM CDT Body Mass Index 18.19 10/06/2017 9:03 PM CDT Plan of Treatment Not on file Procedures Procedure Name Priority Date/Time Associated Comments Diagnosis REPORT OF PROCEDURE - 10/08/2017 11:57 ENDOSCOPY SCAN AM CDT ED ECG INTERPRETATION Routine 10/07/2017 12:57 Results for this AM CDT procedure are in the results section. POCT-GLUCOSE METER Routine 10/07/2017 12:04 Results for this AM CDT procedure are in the results section. XR SPINE CERVICAL 2 OR STAT 10/06/2017 11:07 Results for this 3 VIEWS PM CDT procedure are in the results section. CT SPINE CERVICAL STAT 10/06/2017 10:44 Results for this WITHOUT IV CONTRAST PM CDT procedure are in the results section. CT BRAIN WITHOUT IV STAT 10/06/2017 10:44 Results for this CONTRAST PM CDT procedure are in the results section. CBC W/PLT COUNT & AUTO STAT 10/06/2017 10:17 Results for this DIFFERENTIAL PM CDT procedure are in the results section. TROPONIN I STAT 10/06/2017 10:17 Results for this PM CDT procedure are in the results section. AMYLASE STAT 10/06/2017 10:17 Results for this PM CDT procedure are in the results section. COMPREHENSIVE METABOLIC STAT 10/06/2017 10:17 Results for this PANEL PM CDT procedure are in the results section. CBC W/PLT COUNT & AUTO STAT 10/06/2017 10:17 Results for this DIFFERENTIAL PM CDT procedure are in the results section. POCT-GLUCOSE METER Routine 10/06/2017 9:50 Results for this PM CDT procedure are in the results section. URINALYSIS W/ STAT 10/06/2017 9:49 Results for this MICROSCOPIC PM CDT procedure are in the results section. URINE CULTURE Routine 10/06/2017 9:49 Results for this PM CDT procedure are in the results section. REPORT OF PROCEDURE - 09/23/2017 4:30 ENDOSCOPY SCAN PM CDT ED ECG INTERPRETATION Routine 09/22/2017 9:45 Results for this PM CDT procedure are in the results section. POCT-GLUCOSE METER Routine 09/22/2017 7:07 Results for this PM CDT procedure are in the results section. CT ABDOMEN/PELVIS WITH STAT 09/22/2017 6:19 Results for this IV CONTRAST PM CDT procedure are in the results section. BASIC METABOLIC PANEL STAT 09/22/2017 4:32 Results for this (7) PM CDT procedure are in the results section. CREATINE KINASE (CK), STAT 09/22/2017 4:19 Results for this TOTAL AND MB PM CDT procedure are in the results section. TROPONIN I STAT 09/22/2017 4:19 Results for this PM CDT procedure are in the results section. LIPASE STAT 09/22/2017 4:19 Results for this PM CDT procedure are in the results section. AMYLASE STAT 09/22/2017 4:19 Results for this PM CDT procedure are in the results section. CBC W/PLT COUNT & AUTO STAT 09/22/2017 4:07 Results for this DIFFERENTIAL PM CDT procedure are in the results section. URINALYSIS W/ STAT 09/22/2017 4:07 Results for this MICROSCOPIC PM CDT procedure are in the results section. CBC W/PLT COUNT & AUTO STAT 09/22/2017 4:07 Results for this DIFFERENTIAL PM CDT procedure are in the results section. URINE CULTURE Routine 09/22/2017 4:07 Results for this PM CDT procedure are in the results section. after 08/14/2017 Results EKG-SCANNED (10/08/2017 11:57 AM CDT)Only the most recent of2 resultswithin the time period is included. Narrative Performed At ED ECG Interpretation (10/07/2017 12:57 AM CDT)Only the most recent of2 resultswithin the time period is included. Narrative Performed At Princess Livingston MD 10/07/2017 12:57 AM ECG/EKG Interpretation Date/Time: 10/06/2017 10:19 PM Performed by: PRINCESS LIVINGSTON Authorized by: PRINCESS LIVINGSTON The ECG was interpreted by ED physician. This ECG was not compared with previous ECG(s).The ECG is interpreted as sinus rhythm. Rate is normal rate. Conduction: conduction normal. ST segments normal. T waves normal. [place] is normal. Other findings: no other findings. Clinical Impression: non-specific ECGECG reviewed and does not meet STEMI criteria. Patient tolerance: Patient tolerated the procedure well with no immediate complications POC-Glucose meter (10/07/2017 12:04 AM CDT)Only the most recent of3 resultswithin the time period is included. POC-Glucose Meter 277 (H)Comment: TESTED AT 70 - 110 mg/dL [facility] [address] [facility] [address] Specimen Blood Performing Organization Address City/State/Zipcode Phone Number [facility] [address] [place] [address] CENTER XR spine cervical 2 or 3 views (10/06/2017 11:07 PM CDT) Specimen Narrative Performed At FINAL REPORT [facility] RAD, SPINE, CERVICAL, 1 view. CLINICAL INDICATION:neck pain COMPARISON: None FINDINGS/IMPRESSION: A single lateral view of the cervical spine was obtained. The study is limited due to obliquity. Vertebral body height and and alignment is maintained. The intervertebral disc spaces are not well evaluated. There is no prevertebral soft tissue swelling. Signed: Kaity Grayson MD Report Verified Date/Time:10/06/2017 23:46:30 Reading Location: [address] Transitional Reading Room Procedure Note Interface, External Ris In - 10/06/2017 11:48 PM CDT FINAL REPORT RAD, SPINE, CERVICAL, 1 view. CLINICAL INDICATION: neck pain COMPARISON: None FINDINGS/IMPRESSION: A single lateral view of the cervical spine was obtained. The study is limited due to obliquity. Vertebral body height and and alignment is maintained. The intervertebral disc spaces are not well evaluated. There is no prevertebral soft tissue swelling. Signed: Kaity Grayson MD Report Verified Date/Time: 10/06/2017 23:46:30 Reading Location: [address] Transitional Reading Room Performing Organization Address City/State/Zipcode Phone Number [facility] CT spine cervical without IV contrast (10/06/2017 10:44 PM CDT) Specimen Narrative Performed At FINAL REPORT [facility] CT cervical spine without contrast INDICATION: Emesis and severe neck pain. COMPARISON: No prior study for direct comparison. TECHNIQUE: Multiple axial CT images of the cervical spine were obtained without contrast. Sagittal and coronal 2D reconstructions were provided as well. This exam was performed according to our departmental dose optimization program which includes automated exposure control, adjustment of the mA and/or kV according to patient's size and/or use of iterative reconstructive technique. FINDINGS: There is generalized osteopenia. Vertebral body height and alignment is within normal limits.There is a small lucency in the posterior C6 vertebral body without bony erosive change. The articular facets and posterior elements are intact. The atlantodental interval is maintained.The craniocervical junction is unremarkable. There is no acute cervical spine fracture. The intervertebral disc spaces are maintained. There is no significant osseous spinal or neuroforaminal stenosis. The prevertebral and paraspinal soft tissues are within normal limits. The visualized lung apices are clear. There are minimal atherosclerotic calcifications of the left carotid bulb. The visualized aerodigestive tract is unremarkable. IMPRESSION: No acute cervical spine fracture or traumatic malalignment. Small lucency in the C6 vertebral body, nonspecific. Differential diagnosis includes a cyst, intraosseous hemangioma or metastases/multiple myeloma.Clinical correlation is recommended. Bone scan or MRI may be performed for further evaluation as clinically warranted. Signed: Kaity Grayson MD Report Verified Date/Time:10/06/2017 23:44:40 Reading Location: [address] Transitional Reading Room Procedure Note Interface, External Ris In - 10/06/2017 11:46 PM CDT FINAL REPORT CT cervical spine without contrast INDICATION: Emesis and severe neck pain. COMPARISON: No prior study for direct comparison. TECHNIQUE: Multiple axial CT images of the cervical spine were obtained without contrast. Sagittal and coronal 2D reconstructions were provided as well. This exam was performed according to our departmental dose optimization program which includes automated exposure control, adjustment of the mA and/or kV according to patient's size and/or use of iterative reconstructive technique. FINDINGS: There is generalized osteopenia. Vertebral body height and alignment is within normal limits. There is a small lucency in the posterior C6 vertebral body without bony erosive change. The articular facets and posterior elements are intact. The atlantodental interval is maintained. The craniocervical junction is unremarkable. There is no acute cervical spine fracture. The intervertebral disc spaces are maintained. There is no significant osseous spinal or neuroforaminal stenosis. The prevertebral and paraspinal soft tissues are within normal limits. The visualized lung apices are clear. There are minimal atherosclerotic calcifications of the left carotid bulb. The visualized aerodigestive tract is unremarkable. IMPRESSION: No acute cervical spine fracture or traumatic malalignment. Small lucency in the C6 vertebral body, nonspecific. Differential diagnosis includes a cyst, intraosseous hemangioma or metastases/multiple myeloma. Clinical correlation is recommended. Bone scan or MRI may be performed for further evaluation as clinically warranted. Signed: Kaity Grayson MD Report Verified Date/Time: 10/06/2017 23:44:40 Reading Location: [address] Reading Room Performing Organization Address City/State/Zipcode Phone Number [facility] CT brain without IV contrast (10/06/2017 10:44 PM CDT) Specimen Narrative Performed At FINAL REPORT [employer] [facility] EXAMINATIONNONCONTRAST HEAD CT SCAN CLINICAL HISTORY:Severe occipital headache. Vomiting. COMPARISON CT: 05/07/2016 EPISODE OF CARE: Initial TECHNIQUE: Axial tomographic images were obtained through the brain from the vertex to the skull base without intravenous contrast. The exam was performed according to our departmental dose optimization program which includes automated exposure control, adjustment of the mA and/or kV according to patient's size and/or use of iterative reconstructive technique. FINDINGS: No evidence of acute intracranial hemorrhage, mass effect, midline shift, hydrocephalus, cerebral edema or abnormal extra-axial fluid collection. Although there are no definite findings to suggest evolving ischemia, CT is not sensitive for the detection of early or small infarcts. The orbits are unremarkable. Visualized paranasal sinuses, tympanic cavities and mastoid air cells are well pneumatized. No evidence of an acute skull fracture. IMPRESSION: No specific evidence of an acute cranial process. Note: If there is persistent clinical concern, consider MRI for further evaluation. Signed: Carla Oden MD Report Verified Date/Time:10/06/2017 23:24:44 Reading Location: [address] Reading Room Procedure Note Interface, External Ris In - 10/06/2017 11:26 PM CDT FINAL REPORT EXAMINATION NONCONTRAST HEAD CT SCAN CLINICAL HISTORY:Severe occipital headache. Vomiting. COMPARISON CT: 05/07/2016 EPISODE OF CARE: Initial TECHNIQUE: Axial tomographic images were obtained through the brain from the vertex to the skull base without intravenous contrast. The exam was performed according to our departmental dose optimization program which includes automated exposure control, adjustment of the mA and/or kV according to patient's size and/or use of iterative reconstructive technique. FINDINGS: No evidence of acute intracranial hemorrhage, mass effect, midline shift, hydrocephalus, cerebral edema or abnormal extra-axial fluid collection. Although there are no definite findings to suggest evolving ischemia, CT is not sensitive for the detection of early or small infarcts. The orbits are unremarkable. Visualized paranasal sinuses, tympanic cavities and mastoid air cells are well pneumatized. No evidence of an acute skull fracture. IMPRESSION: No specific evidence of an acute cranial process. Note: If there is persistent clinical concern, consider MRI for further evaluation. Signed: Carla Oden MD Report Verified Date/Time: 10/06/2017 23:24:44 Reading Location: [address] Reading Room Performing Organization Address City/State/Zipcode Phone Number GE RIS CBC with platelet count + automated diff (10/06/2017 10:17 PM CDT)Only the most recent of2 resultswithin the time period is included. WBC 10.9 (H) 4.0 - 10.0 K/L [facility] RBC 4.45 4.00 - 5.00 M/L [facility] Hemoglobin 12.2 12.0 - 15.0 GM/DL [facility] Hematocrit 37.0 36.0 - 45.0 % [facility] MCV 83.2 82.0 - 99.0 fL [facility] MCH 27.4 27.0 - 33.0 pg [facility] MCHC 32.9 32.0 - 36.0 GM/DL [facility] RDW 14.0 10.3 - 14.2 % [facility] Platelets 359 150 - 430 K/CU MM [facility] MPV 7.8 6.5 - 10.5 fL [facility] nRBC 0 0 - 0 /100 WBC [facility] % Neutros 71 % [facility] % Lymphs 23 % [facility] % Monos 5 % [facility] % Eos 0 % [facility] % Baso 1 % [facility] # Neutros 7.70 1.80 - 8.00 K/L [facility] # Lymphs 2.50 1.48 - 4.50 K/L [facility] # Monos 0.60 0.00 - 1.30 K/L [facility] # Eos 0.00 0.00 - 0.50 K/L [facility] # Baso 0.10 0.00 - 0.20 K/L [facility] Specimen Blood Performing Organization Address [facility] Phone Number [facility] [address] [place] [address] [phone] Troponin I (not available at [facility] [place]) (10/06/2017 10:17 PM CDT)Only the most recent of2 resultswithin the time period is included. Troponin I <0.03 0.00 - 0.15 ng/mL [facility] Specimen Blood Narrative Performed At [facility] Troponin I (TnI) levels must be interpreted in the context of the presenting symptoms and the clinical findings. Elevated TnI levels indicate myocardial damage, but are not specific for ischemic heart disease. Elevated TnI levels are seen in patients with other cardiac conditions (including myocarditis and congestive heart failure), and slight TnI elevations occur in patients with other conditions, including sepsis, renal failure, acidosis, acute neurological disease, and persistent tachyarrhythmia. Performing Organization Address City/[facility] Cent[facility]out Phone Number [place] [phone] [place] [address] Amylase (10/06/2017 10:17 PM CDT)Only the most recent of2 resultswithin the time period is included. Amylase 58 30 - 110 U/L [facility] Specimen Blood Performing Organization Address City/[facility] Phone Number [place] [phone] [place], [place] [phone] Comprehensive metabolic panel (10/06/2017 10:17 PM CDT) Protein, Total 8.5 6.0 - 8.5 gm/dL [facility] Albumin 4.3 3.5 - 5.0 g/dL [facility] Alkaline Phosphatase 126 (H) 30 - 115 U/L [facility] Total Bilirubin 0.5 0.1 - 1.2 mg/dL [facility] Sodium 134 (L) 135 - 148 meq/L [facility] Potassium 4.3 3.6 - 5.5 meq/L [facility] Chloride 97 (L) 98 - 106 meq/L [facility] CO2 24 20 - 29 meq/L [facility] BUN 17 10 - 26 mg/dL [facility] Creatinine 1.01 0.50 - 1.20 mg/dL [facility] Glucose 414 (HH) 70 - 110 mg/dL [facility] Calcium 9.6 8.5 - 10.5 mg/dL [facility] AST 11 5 - 40 U/L [facility] ALT 9 5 - 50 U/L [facility] EGFR 58Comment: ESTIMATED GFR mL/min/1.73 sq m [facility] IS NOT ACCURATE CREATININE CLEARANCE IN PREDICTING GLOMERULAR FILTRATION RATE. ESTIMATED GFR IS NOT APPLICABLE FOR DIALYSIS PATIENTS. Specimen Blood Performing Organization Address [facility] Phone Number [facility] [address] [place] [address] Urinalysis w/Microscopic (10/06/2017 9:49 PM CDT)Only the most recent of2 resultswithin the time period is included. Color, UA Yellow [facility] Clarity, UA Clear [facility] Specific [place], UA <=1.005 1.001 - 1.035 [facility] pH, UA 6.0 5.0 - 8.0 [facility] Protein, UA Negative Negative [facility] Glucose, UA >=1000 mg/dL (A) Negative [facility] Ketones, UA Negative Negative [facility] Bilirubin, UA Negative Negative [facility] Blood, UA Trace (A) Negative [facility] Nitrite, UA Positive (A) Negative [facility] Leukocytes, UA Negative Negative [facility] Urobilinogen, UA 0.2 0.2 - 1.0 mg/dL [facility] Bacteria, UA Many [facility] RBC, UA <5 /HPF [facility] WBC, UA 10-20 /HPF [facility] SQUAMOUS EPITHELIAL <5 /HPF [facility] Specimen Source [facility] Specimen Urine Performing Organization Address [facility] Cent[facility]out Phone Number [facility] [address] [place], [place] [address] [phone] Urine culture (10/06/2017 9:49 PM CDT)Only the most recent of2 resultswithin the time period is included. Result ESCHERICHIA COLI (A) [facility] Specimen Urine Organism Antibiotic Method Susceptibility Escherichia coli Ampicillin + Sulbactam 16: Intermediate Escherichia coli Cefepime <=1: Susceptible Escherichia coli Cefoxitin <=4: Susceptible Escherichia coli Ceftriaxone <=1: Susceptible Escherichia coli Gentamicin <=1: Susceptible Escherichia coli Levofloxacin >=8: Resistant Escherichia coli Meropenem <=0.25: Susceptible Escherichia coli Nitrofurantoin <=16: Susceptible Escherichia coli Piperacillin + Tazobactam <=4: Susceptible Escherichia coli Tetracycline <=1: Susceptible Escherichia coli Tobramycin <=1: Susceptible Escherichia coli Trimethoprim + Sulfamethoxazole <=20: Susceptible Performing Organization Address City/State/Zipcode Phone Number [place] [phone] [place], [place] [phone] CT abdomen/pelvis with IV contrast (09/22/2017 6:19 PM CDT) Specimen Narrative Performed At FINAL REPORT [facility] CT OF THE ABDOMEN AND PELVIS CLINICAL HISTORY:Abdominal pain TECHNIQUE: CT of the abdomen and pelvis is performed with intravenous contrast administration. This exam was performed according to our departmental dose-optimization program which includes automated exposure control, adjustment of the mA and/or kV according to patient size and/or use of iterative reconstruction technique. COMPARISON FILM:CT of the abdomen and pelvis from 07/07/2017 DISCUSSION: LOWER THORAX: Unremarkable. HEPATOBILIARY: Prior cholecystectomy. Mild prominence of the common bile duct, within normal limits after cholecystectomy. Main portal vein is patent. No definite focal liver lesion. PANCREAS: No pancreatic ductal dilation. No pancreatic lesion. SPLEEN: No splenomegaly. ADRENALS: No nodule. KIDNEYS/URETERS: No hydronephrosis or hydroureter. No obstructing renal or ureteral calculi. No definite solid renal lesion. No perinephric stranding. PELVIC ORGANS/BLADDER: Small amount of air in the nondependent portion of the bladder. GI TRACT: No bowel wall thickening or distention. PERITONEUM/RETROPERITONEUM: No free fluid or free air. LYMPH NODES: No upper abdominal, retroperitoneal, mesenteric, or pelvic lymphadenopathy. VESSELS: Abdominal aorta normal in caliber. BONES AND SOFT TISSUES: No destructive osseous lesion. IMPRESSION: 1. Small amount of air in the nondependent portion of the bladder. Suggest correlation with history as this finding may be seen with recent catheterization or instrumentation. In the absence of this history, presence of colovesicular or enterovesicular fistula should be considered. Correlation with urinalysis may also assist in further evaluation. 2. Findings of prior cholecystectomy. Mild prominence of the common bile duct, within normal limits after cholecystectomy. 3. Otherwise, no acute findings in the abdomen or pelvis. Signed: Gama Valdez MD Report Verified Date/Time:09/22/2017 19:16:29 Reading Location: [facility] Consult Reading Room Procedure Note Interface, External Ris In - 09/22/2017 7:18 PM CDT FINAL REPORT CT OF THE ABDOMEN AND PELVIS CLINICAL HISTORY: Abdominal pain TECHNIQUE: CT of the abdomen and pelvis is performed with intravenous contrast administration. This exam was performed according to our departmental dose-optimization program which includes automated exposure control, adjustment of the mA and/or kV according to patient size and/or use of iterative reconstruction technique. COMPARISON FILM: CT of the abdomen and pelvis from 07/07/2017 DISCUSSION: LOWER THORAX: Unremarkable. HEPATOBILIARY: Prior cholecystectomy. Mild prominence of the common bile duct, within normal limits after cholecystectomy. Main portal vein is patent. No definite focal liver lesion. PANCREAS: No pancreatic ductal dilation. No pancreatic lesion. SPLEEN: No splenomegaly. ADRENALS: No nodule. KIDNEYS/URETERS: No hydronephrosis or hydroureter. No obstructing renal or ureteral calculi. No definite solid renal lesion. No perinephric stranding. PELVIC ORGANS/BLADDER: Small amount of air in the nondependent portion of the bladder. GI TRACT: No bowel wall thickening or distention. PERITONEUM/RETROPERITONEUM: No free fluid or free air. LYMPH NODES: No upper abdominal, retroperitoneal, mesenteric, or pelvic lymphadenopathy. VESSELS: Abdominal aorta normal in caliber. BONES AND SOFT TISSUES: No destructive osseous lesion. IMPRESSION: 1. Small amount of air in the nondependent portion of the bladder. Suggest correlation with history as this finding may be seen with recent catheterization or instrumentation. In the absence of this history, presence of colovesicular or enterovesicular fistula should be considered. Correlation with urinalysis may also assist in further evaluation. 2. Findings of prior cholecystectomy. Mild prominence of the common bile duct, within normal limits after cholecystectomy. 3. Otherwise, no acute findings in the abdomen or pelvis. Signed: Gama Valdez MD Report Verified Date/Time: 09/22/2017 19:16:29 Reading Location: [facility] [id number] Consult Reading Room Performing Organization Address [facility] Phone Number GE RIS Basic Metabolic Panel (09/22/2017 4:32 PM CDT) Sodium 134 (L) 135 - 148 meq/L [facility] Potassium 5.1Comment: Specimen markedly 3.6 - 5.5 meq/L [facility] hemolyzed Chloride 98 98 - 106 meq/L [facility] CO2 16 (L) 20 - 29 meq/L [facility] BUN 9 (L) 10 - 26 mg/dL [facility] Creatinine 0.92Comment: Specimen markedly 0.50 - 1.20 mg/dL [facility] hemolyzed Glucose 408 (HH) 70 - 110 mg/dL [facility] Calcium 9.6 8.5 - 10.5 mg/dL [facility] EGFR 64Comment: ESTIMATED GFR IS NOT mL/min/1.73 sq m [facility] ACCURATE CREATININE CLEARANCE IN PREDICTING GLOMERULAR FILTRATION RATE. ESTIMATED GFR IS NOT APPLICABLE FOR DIALYSIS PATIENTS. Specimen Blood Performing Organization Address [facility] Phone Number [address] [phone] Lipase (09/22/2017 4:19 PM CDT) Lipase 26 6 - 51 U/L [facility] Specimen Blood Performing Organization Address [facility] Phone Number [address] [phone] Creatine Kinase (CK), Total and MB (not available at [facility] [place]) (2017 4:19 PM CDT) Total CK 68 25 - 235 U/L [facility] CK-MB 0.6 0.0 - 4.9 ng/mL [facility] MB Relative Index 0.9 % [facility] Specimen Blood Narrative Performed At CK-MB Reference Range: [facility] <5 Normal 5-10 Borderline >10Abnormal Performing Organization Address [facility] Phone Number [address] [phone] after 08/14/2017
--- OUTSIDE RECORDS SUMMARY | 2018-08-15 15:04 | XMS REPORT | CCD ---
:1965 Author Organization [facility] Care Team Providers Name Role Phone Sudhir Castillo Consulting Provider Unavailable ChartServer, Login Consulting Provider Unavailable Cherise Yu Consulting Provider Alexia Gutierres Consulting Provider Unavailable Estefany Villasenor Consulting Provider Lea Greene Consulting Provider Unavailable Allergies, Adverse Reactions, Alerts Substance Reaction Status NKDA1 ?? Active 1Pt has no food allergy Problem List Condition Effective Dates Status Abdominal pain ?? Active Cellulitis ?? Active Chest pain ?? Active Hyperglycemia ?? Active
--- OUTSIDE RECORDS SUMMARY | 2018-08-15 15:05 | XMS REPORT | CCD ---
:1965 Author Organization [facility] Team Providers Name Role Phone JUSTO Huang Consulting Provider Unavailable Sophia Schafer Consulting Provider Unavailable Pamella Vigil Consulting Provider Unavailable Maritza Terrell Consulting Provider [phone] Elizabeth Cummins Consulting Provider Unavailable Penelope Villatoro Consulting Provider Irene Phillip Consulting Provider Unavailable Tere Stoddard Consulting Provider Unavailable Alan Nixon Consulting Provider [phone] Sudhir Castillo Consulting Provider Unavailable Dakota Radford Consulting Provider Leyla Adair Consulting Provider Unavailable Elisabeth Mosley Consulting Provider Fabio Ricci Consulting Provider Unavailable Emily Clark Consulting Provider [phone] Cherise Yu Consulting Provider Gisella Purdy Consulting Provider Unavailable Hemant Villareal Consulting Provider [phone] Natanael Pickett Consulting Provider [phone] Isrrael Bueno Consulting Provider Unavailable Sarah Davis Consulting Provider Unavailable Keith Gomez Consulting Provider Unavailable Alisa Rocha Consulting Provider Unavailable SYSTEM, SYSTEM Consulting Provider Unavailable Rose Palafox S Consulting Provider Remi Paulson Consulting Provider Manuel Head Consulting Provider Unavailable Jayne Tinsley Consulting Provider Unavailable Skylar Guzman Consulting Provider Unavailable Bridgette López Consulting Provider Sonal Alxeis Consulting Provider Unavailable Dk Castillo Consulting Provider Enedelia Lim Consulting Provider Unavailable Rita Tinsley Consulting Provider Unavailable Winter Murphy Consulting Provider Unavailable Ami Nicol Caren Consulting Provider Alexia Gutierres Consulting Provider Unavailable Estefany Villasenor Consulting Provider Lea Greene Consulting Provider Unavailable Allergies, Adverse Reactions, Alerts Substance Reaction Status NKDA1 ?? Active 1Pt has no food allergy Problem List Condition Effective Dates Status Abdominal pain ?? Active Cellulitis ?? Active Chest pain ?? Active Hyperglycemia ?? Active UTI - Urinary tract infection ?? Active Medications Medication Instructions Start Date End Date Status loratadine 10 mg, 1 tab, Route: 02/11/2011 02/11/2011 Discontinued PO, Drug form: TAB, Daily, PRN Allergic reaction, Priority: NOW, Start date: 02/11/11 2:05:00, Duration: 30 day, Stop date: 03/13/11 2:04:00 magnesium oxide 400 mg, 1 tab, Route: 02/11/2011 02/11/2011 Discontinued PO, Drug form: TAB, Daily, Start date: 02/11/11 9:00:00, Duration: 30 day, Stop date: 03/12/11 9:00:00 aspirin 325 mg tablet 325 mg, Route: PO, Drug 02/10/2011 02/10/2011 Completed form: TAB, ONCE, Priority: STAT, Start date: 02/10/11 21:47:00, Stop date: 02/10/11 21:47:00 metoprolol tartrate 50 mg, Route: PO, Drug 02/10/2011 02/10/2011 Completed form: TAB, ONCE, (Hold if SBP <=90 mmHg or if <=100mmHg with symptomatic dizziness, or if HR <=55), Start date: 02/10/11 21:47:00, Stop date: 02/10/11 21:47:00 nitroglycerin 2% ointment 0.5 inch, Route: TOP, 02/10/2011 02/10/2011 Completed Drug Form: OINT, ONCE, STAT, Start date: 02/10/11 21:47:00, Stop date: 02/10/11 21:47:00 nitroglycerin 0.4 mg, 1 tab, Route: 02/10/2011 02/11/2011 Discontinued SL, Drug form: TAB, Q5Min, PRN Chest Pain, (Hold if SBP <=90 mmHg or if <=100mmHg with symptomatic dizziness), Start date: 02/10/11 21:47:00, Duration: 3 doses or times, Stop date: Limited # of times morphine Sulfate 2 mg, Route: IVP, ONCE, 02/10/2011 02/10/2011 Completed Priority: STAT, Start date: 02/10/11 21:47:00, Stop date: 02/10/11 21:47:00 Saline Flush 0.9% 5 ml, Route: IVP, PRN, 02/10/2011 02/10/2011 Deleted PRN Line Flush, Start date: 02/10/11 21:47:00, Duration: 30 day, Stop date: 03/12/11 20:46:00 Antivert 25 mg, 1 tab, Route: 02/11/2011 02/11/2011 Discontinued PO, Drug form: TAB, TID, PRN Dizziness, Start date: 02/11/11 2:05:00, Duration: 30 day, Stop date: 03/13/11 2:04:00 Flexeril 10 mg, 1 tab, Route: 02/11/2011 02/11/2011 Discontinued PO, Drug form: TAB, TID, PRN Spasm, Start date: 02/11/11 2:05:00, Duration: 30 day, Stop date: 03/13/11 2:04:00 Lantus 70 unit, Route: SUB-Q, 02/11/2011 02/11/2011 Deleted Drug form: SOLN, Daily, Start date: 02/11/11 9:00:00, Duration: 30 day, Stop date: 03/12/11 9:00:00 Insulin (Novolog) Sliding 6 unit, 0.06 mL, Route: 02/11/2011 02/11/2011 Discontinued Scale - Low SUB-Q, Drug form: SOLN, Sliding Scale, PRN Blood Glucose Results, Start date: 02/11/11 2:05:00, Duration: 30 day, Stop date: 03/13/11 1:04:00 Insulin (Novolog) Sliding 8 unit, 0.08 mL, Route: 02/11/2011 02/11/2011 Discontinued Scale - Low SUB-Q, Drug form: SOLN, Sliding Scale, PRN Blood Glucose Results, Start date: 02/11/11 2:05:00, Duration: 30 day, Stop date: 03/13/11 1:04:00 glucagon 1 mg, Route: IM, Drug 02/11/2011 02/11/2011 Discontinued form: PDR/INJ, PRN, PRN Blood Glucose Results, Start date: 02/11/11 2:05:00, Duration: 30 day, Stop date: 03/13/11 1:04:00 Dextrose 50% Syringe 25 gm, 50 ml, Route: 02/11/2011 02/11/2011 Discontinued IVP, Drug Form: INJ, PRN, PRN Blood Glucose Results, Start date: 02/11/11 2:05:00, Duration: 30 day, Stop date: 03/13/11 1:04:00 Insulin (Novolog) Sliding 5 unit, 0.05 mL, Route: 02/11/2011 02/11/2011 Discontinued Scale - Low SUB-Q, Drug form: SOLN, Sliding Scale, PRN Blood Glucose Results, Start date: 02/11/11 2:05:00, Duration: 30 day, Stop date: 03/13/11 1:04:00 Insulin (Novolog) Sliding 10 unit, 0.1 mL, Route: 02/11/2011 02/11/2011 Discontinued Scale - Low SUB-Q, Drug form: SOLN, Sliding Scale, PRN Blood Glucose Results, Start date: 02/11/11 2:05:00, Duration: 30 day, Stop date: 03/13/11 1:04:00 Insulin (Novolog) Sliding 3 unit, 0.03 mL, Route: 02/11/2011 02/11/2011 Discontinued Scale - Low SUB-Q, Drug form: SOLN, Sliding Scale, PRN Blood Glucose Results, Start date: 02/11/11 2:05:00, Duration: 30 day, Stop date: 03/13/11 1:04:00 Insulin (Novolog) Sliding 4 unit, 0.04 mL, Route: 02/11/2011 02/11/2011 Discontinued Scale - Low SUB-Q, Drug form: SOLN, Sliding Scale, PRN Blood Glucose Results, Start date: 02/11/11 2:05:00, Duration: 30 day, Stop date: 03/13/11 1:04:00 Yesy 180 mg oral tablet 180 mg, 1 tab, PO, 02/11/2011 ?? Ordered Daily, 30 tab, Substitution Allowed, TAB morphine Sulfate 2 mg, 0.4 mL, Route: 02/11/2011 02/11/2011 Completed IVP, Drug form: INJ, ONCE, Priority: STAT, Start date: 02/11/11 0:37:00, Stop date: 02/11/11 0:37:00 Zofran 4 mg, 2 mL, Route: IVP, 02/10/2011 02/10/2011 Completed Drug form: INJ, ONCE, Start date: 02/10/11 23:28:00, Stop date: 02/10/11 23:28:00 acetaminophen-hydrocodone 1 tab, Route: PO, Drug 02/11/2011 02/11/2011 Discontinued Form: TAB, Q4H, PRN Pain Score 1-5, Start date: 02/11/11 2:25:00, Duration: 30 day, Stop date: 03/13/11 2:24:00 acetaminophen-hydrocodone 2 tab, Route: PO, Drug 02/11/2011 02/11/2011 Discontinued Form: TAB, Q4H, PRN Pain Score 6-10, Start date: 02/11/11 2:25:00, Duration: 30 day, Stop date: 03/13/11 2:24:00 Insulin regular 10 unit, Route: SUB-Q, 02/10/2011 02/10/2011 Completed ONCE, Priority: STAT, Start date: 02/10/11 22:56:00, Stop date: 02/10/11 22:56:00 Sodium Chloride 0.9% 1,000 mL, Rate: 1,000 02/10/2011 02/10/2011 Completed (Bolus) IV 1000 mL ml/hr, Infuse over: 1 hr, Route: IV, Total Volume: 1,000, Bolus Dose, Priority: STAT, Start date: 02/10/11 22:55:00, Duration: 1 doses or times, Stop date: 02/10/11 23:54:00 Cipro 500 mg oral tablet 500 mg, 1 tab, PO, BID, 02/11/2011 02/14/2011 Ordered 6 tab, Substitution Allowed BD Posiflush SF 15 mL, Route: IVP, Drug 02/11/2011 02/11/2011 Discontinued Form: INJ, PRN, PRN Line Flush, Start date: 02/11/11 2:22:00, Duration: 30 day, Stop date: 03/13/11 1:21:00 aspirin 81 mg tablet, 1 tab, PO, Daily, tab, 02/11/2011 ?? Ordered chewable Substitution Allowed, CHEWTAB Levemir FlexPen 70 unit, 0.7 mL, Route: 02/11/2011 02/11/2011 Discontinued SUB-Q, Drug form: INJ, Daily, Start date: 02/11/11 9:00:00, Duration: 30 day, Stop date: 03/12/11 9:00:00 Saline Flush 0.9% 5 ml, Route: IVP, Drug 02/11/2011 02/11/2011 Deleted Form: INJ, PRN, PRN Line Flush, Start date: 02/11/11 2:05:00, Duration: 30 day, Stop date: 03/13/11 1:04:00 Saline Flush 0.9% 5 ml, Route: IVP, Drug 02/11/2011 02/11/2011 Discontinued Form: INJ, Q12H, Start date: 02/11/11 9:00:00, Duration: 30 day, Stop date: 03/12/11 21:00:00 nitroglycerin SL Tab 0.4 mg, 1 tab, Route: 02/11/2011 02/11/2011 Discontinued SL, Drug form: TAB, Q5Min, PRN Chest Pain, Start date: 02/11/11 2:05:00, Duration: 3 doses or times, Stop date: Limited # of times morphine Sulfate 2 mg, 0.4 mL, Route: 02/11/2011 02/11/2011 Discontinued IVP, Drug form: INJ, Q15Min, PRN Chest Pain, Start date: 02/11/11 2:05:00, Duration: 2 doses or times, Stop date: Limited # of times acetaminophen 650 mg, 2 tab, Route: 02/11/2011 02/11/2011 Discontinued PO, Drug form: TAB, Q4H, PRN Headache, Start date: 02/11/11 2:05:00, Duration: 30 day, Stop date: 03/13/11 2:04:00 diphenhydrAMINE 25 mg, 1 tab, Route: 02/11/2011 02/11/2011 Discontinued PO, Drug form: TAB, Bedtime, PRN Insomnia, Start date: 02/11/11 2:05:00, Duration: 30 day, Stop date: 03/13/11 2:04:00 acetaminophen-hydrocodone 1 tab, Route: PO, Q4H, 02/11/2011 02/11/2011 Deleted 325 mg-5 mg oral tablet PRN Pain Score 1-5, Start date: 02/11/11 2:05:00, Duration: 30 day, Stop date: 03/13/11 2:04:00 acetaminophen-hydrocodone 2 tab, Route: PO, Q4H, 02/11/2011 02/11/2011 Deleted 325 mg-5 mg oral tablet PRN Pain Score 6-10, Start date: 02/11/11 2:05:00, Duration: 30 day, Stop date: 03/13/11 2:04:00 ondansetron 4 mg, 1 tab, Route: PO, 02/11/2011 02/11/2011 Discontinued Drug form: TAB, Q8H, PRN Nausea & Vomiting, Start date: 02/11/11 2:05:00, Duration: 30 day, Stop date: 03/13/11 2:04:00 temazepam 15 mg, 1 cap, Route: 02/11/2011 02/11/2011 Discontinued PO, Drug form: CAP, Bedtime, PRN Insomnia, Start date: 02/11/11 2:05:00, Duration: 30 day, Stop date: 03/13/11 2:04:00 nitroglycerin 2% ointment 0.5 inch, Route: TOP, 02/11/2011 02/11/2011 Discontinued Drug Form: OINT, TID, Start date: 02/11/11 9:00:00, Duration: 30 day, Stop date: 03/12/11 17:00:00 metoprolol tartrate 25 mg, 1 tab, Route: 02/11/2011 02/11/2011 Discontinued PO, Drug form: TAB, BID, Start date: 02/11/11 9:00:00, Duration: 30 day, Stop date: 03/12/11 17:00:00 aspirin 325 mg tablet 325 mg, 1 tab, Route: 02/11/2011 02/11/2011 Completed PO, Drug form: TAB, ONCE, Start date: 02/11/11 2:05:00, Stop date: 02/11/11 2:05:00 Visipaque 48,000 mg, 150 mL, 02/10/2011 02/11/2011 Completed Route: IV, Drug form: INJ, ONCE, Start date: 02/10/11 23:55:00, Stop date: 02/10/11 23:55:00 Cipro 400 mg, Route: IVPB, 02/10/2011 02/10/2011 Completed ONCE, Priority: STAT, Start date: 02/10/11 23:08:00, Stop date: 02/10/11 23:08:00 BD Posiflush SF 15 mL, Route: IVP, Drug 02/10/2011 02/11/2011 Discontinued Form: INJ, PRN, PRN Line Flush, Start date: 02/10/11 21:55:00, Duration: 30 day, Stop date: 03/12/11 20:54:00 Cipro 250 mg, 1 tab, Route: 02/11/2011 02/11/2011 Discontinued PO, Drug form: TAB, [id number], Start date: 02/11/11 3:00:00, Duration: 30 day, Stop date: 03/12/11 15:00:00 Cipro 250 mg, 1 tab, Route: 02/11/2011 02/11/2011 Discontinued PO, Drug form: TAB, [id number], Start date: 02/11/11 11:00:00, Duration: 30 day, Stop date: 03/12/11 23:00:00 nitroglycerin 0.4 mg 0.4 mg, 1 tab, SL, 02/11/2011 02/11/2011 Discontinued sublingual tablet Q5Min, PRN, as needed for chest pain, Substitution Allowed Vital Signs Most recent to oldest 1 2 3 [Reference Range]: Height 162.56 cm 162.56 cm ?? (02/11/2011 02:38:00) ?? (02/10/2011 21:32:00) ?? Temperature Oral 98.1 DegF 97.5 DegF 98.0 DegF [96.4-99.1 DegF] (02/11/2011 10:37:00) ?? (02/11/2011 06:53:00) ?? (2010 02:38:00) ?? Systolic Blood Pressure 100 mmHg 102 mmHg 111 mmHg [90-140 mmHg] (02/11/2011 10:37:00) ?? (02/11/2011 06:53:00) ?? (02/11/2011 02:38:00) ?? Diastolic Blood Pressure 51 mmHg 54 mmHg 61 mmHg [60-90 mmHg] *LOW* *LOW* (02/11/2011 02:38:00) ?? (02/11/2011 10:37:00) ?? (02/11/2011 06:53:00) ?? Respiratory Rate [14-20 14 BRMIN 16 BRMIN 18 BRMIN BRMIN] (02/11/2011 10:37:00) ?? (02/11/2011 06:53:00) ?? (02/11/2011 02:38: 00) ?? Peripheral Pulse Rate 59 bpm 61 bpm 61 bpm [60-100 bpm] *LOW* (02/11/2011 06:53:00) ?? (02/11/2011 02:38:00) ?? (02/11/2011 10:37:00) ?? Weight 56.960 kg 52.273 kg ?? (02/11/2011 02:38:00) ?? (02/10/2011 21:32:00) ?? Results BEDSIDE GLUCOSE TESTING Most recent to oldest 1 2 3 4 [Reference Range]: Gluc POC [place] [65-110 227 mg/dL 1 394 mg/dL 2 151 mg/dL 3 ?? mg/dL] *HI* *HI* *HI* (02/11/2011 11:26:00) ?? (02/11/2011 07:00:00) ?? (02/11/2011 00:34:00) ?? 1Interpretive Data: Upper Reportable Limit: 200 mg/dL.2Interpretive Data: Upper Reportable Limit: 200 mg/dL.3Interpretive Data: Upper Reportable Limit: 200 mg/dL.URINALYSIS Most recent to oldest [Reference Range]: 1 2 3 4 UA Turbidity [>Clear] Clear ? (02/10/2011 22:26:00) ?? UA Color [>Yellow] Yellow ? *NA* (02/10/2011 22:26:00) ?? UA pH [5.0-8.0] 6.5 ? (02/10/2011 22:26:00) ?? UA Spec Grav [<<=1.030] 1.010 ? (02/10/2011 22:26:00) ?? UA Glucose [>Negative mg/dL] >=1000 mg/dL ? *ABN* (02/10/2011 22:26:00) ?? UA Blood [>Negative] Negative ? (02/10/2011 22:26:00) ?? UA Ketones [>Negative mg/dL] Negative mg/dL ? *NA* (02/10/2011 22:26:00) ?? UA Protein [>Negative mg/dL] Negative mg/dL ? (02/10/2011 22:26:00) ?? UA Urobilinogen [0.1-1.0 EU/dL] 0.2 EU/dL ? (02/10/2011 22:26:00) ?? UA Bili [>Negative] Negative ? *NA* (02/10/2011 22:26:00) ?? UA Leuk Est [>Negative] Negative ? (02/10/2011 22:26:00) ?? UA Nitrite [>Negative] Negative ? (02/10/2011 22:26:00) ?? UA WBC [>None Seen /HPF] 6-10 /HPF ? *ABN* (02/10/2011 22:26:00) ?? UA RBC [>0-2 /HPF] 0-2 /HPF ? (02/10/2011 22:26:00) ?? UA Bacteria [>None Seen /HPF] Few /HPF ? (02/10/2011 22:26:00) ?? UA Sq Epi [>Few /LPF] Few /LPF ? (02/10/2011 22:26:00) ?? UA [place] Yeast [>None Seen /HPF] Occasional /HPF ? *ABN* (02/10/2011 22:26:00) ?? Micro? Performed ? (02/10/2011 22:26:00) ?? CHEMISTRY Most recent to oldest 1 2 3 4 [Reference Range]: Sodium Lvl [135-145 137 mEq/L 131 mEq/L ? mEq/L] (02/11/2011 04:29:00) ?? *LOW* (02/10/2011 22:03:00) ?? Potassium Lvl [3.5-5.1 3.7 mEq/L 4.3 mEq/L ? mEq/L] (02/11/2011 04:29:00) ?? (02/10/2011 22:03:00) ?? Chloride Lvl [95-109 103 mEq/L 96 mEq/L ? mEq/L] (02/11/2011 04:29:00) ?? (02/10/2011 22:03:00) ?? CO2 [24-32 mEq/L] 24 mEq/L 22 mEq/L ? (02/11/2011 04:29:00) ?? *LOW* (02/10/2011 22:03:00) ?? AGAP [10.0-20.0 mEq/L] 13.7 mEq/L 17.3 mEq/L ? (02/11/2011 04:29:00) ?? (02/10/2011 22:03:00) ?? Creatinine Lvl 0.6 mg/dL 0.6 mg/dL ? [0.5-1.4 mg/dL] (02/11/2011 04:29:00) ?? (02/10/2011 22:03:00) ?? BUN [7-22 mg/dL] 11 mg/dL 12 mg/dL ? (02/11/2011 04:29:00) ?? (02/10/2011 22:03:00) ?? B/C Ratio [6-25] 20 ? (02/10/2011 22:03:00) ?? Glucose Lvl 222 mg/dL 4 417 mg/dL 5,??6 ? *NA* *CRIT* (02/11/2011 04:29:00) ?? (02/10/2011 22:03:00) ?? Total Protein [6.4-8.4 7.5 g/dL ? g/dL] (02/10/2011 22:03:00) ?? Albumin Lvl [3.5-5.0 4.0 g/dL ? g/dL] (02/10/2011 22:03:00) ?? Globulin [2.0-4.0 3.5 g/dL ? g/dL] (02/10/2011 22:03:00) ?? A/G Ratio [0.7-1.6] 1.1 ? (02/10/2011 22:03:00) ?? Calcium Lvl [8.5-10.5 7.8 mg/dL 8.7 mg/dL ? mg/dL] *LOW* (02/10/2011 22:03:00) ?? (02/11/2011 04:29:00) ?? Magnesium Lvl [1.8-2.4 1.5 mg/dL ? mg/dL] *LOW* (02/11/2011 04:29:00) ?? ALT [0-65 U/L] 14 U/L ? (02/10/2011 22:03:00) ?? AST [0-37 U/L] 7 U/L ? (02/10/2011 22:03:00) ?? Alk Phos [39-136 U/L] 69 U/L ? (02/10/2011 22:03:00) ?? Bili Total [0.2-1.3 0.3 mg/dL ? mg/dL] (02/10/2011 22:03:00) ?? Ketones Qual Negative ? [>Negative] (02/10/2011 22:03:00) ?? Total CK [12-191 U/L] 77 U/L 77 U/L 71 U/L 71 U/L (02/11/2011 10:30:00) ?? (02/11/2011 10:30:00) ?? (02/11/2011 04:29:00) ?? (02/11/2011 04:29:00) ?? CK MB [0.5-3.6 ng/mL] <0.5 ng/mL <0.5 ng/mL ? (02/11/2011 10:30:00) ?? (02/10/2011 22:03:00) ?? CK MB Index [0.0-2.5] <0.6 ? (02/11/2011 10:30:00) ?? Troponin-I [0.00-0.40 <0.02 ng/mL <0.02 ng/mL <0.02 ng/mL ?? ng/mL] (02/11/2011 10:30:00) ?? (02/11/2011 04:29:00) ?? (02/10/2011 22:03: 00) ?? S Preg [>Negative] Negative ? *NA* (02/10/2011 22:03:00) ?? 4Interpretive Data: Reference Ranges : 0 - 7 days : 41 - 90 mg/dL7 days - 150 yrs : 70 - 99 mg/dL (fasting), based on the clinical recommendations of the [place] [employer].5Result Comment: Critical Result(s) called to uba_ at 02/10/2011 22:36 by rvs. Read back OK.6Interpretive Data: Reference Ranges : 0 - 7 days : 41 - 90 mg/dL7 days - 150 yrs : 70 - 99 mg/dL ( fasting), based on the clinical recommendations of the [place] [employer].HEMATOLOGY Most recent to oldest 1 2 3 4 [Reference Range]: WBC [3.7-10.4 K/CMM] 6.8 K/CMM 6.5 K/CMM ? (02/11/2011 04:29:00) ?? (02/10/2011 22:03:00) ?? RBC [4.20-5.40 M/CMM] 4.11 M/CMM 4.43 M/CMM ? *LOW* (02/10/2011 22:03:00) ?? (02/11/2011 04:29:00) ?? Hgb [12.0-16.0 g/dL] 11.8 g/dL 12.8 g/dL ? *LOW* (02/10/2011 22:03:00) ?? (02/11/2011 04:29:00) ?? Hct [36.0-48.0 %] 35.3 % 38.1 % ? *LOW* (02/10/2011 22:03:00) ?? (02/11/2011 04:29:00) ?? MCV [81.0-99.0 fL] 85.7 fL 85.9 fL ? (02/11/2011 04:29:00) ?? (02/10/2011 22:03:00) ?? MCH [27.0-31.0 pg] 28.7 pg 28.9 pg ? (02/11/2011 04:29:00) ?? (02/10/2011 22:03:00) ?? MCHC [32.0-36.0 g/dL] 33.5 g/dL 33.7 g/dL ? (02/11/2011 04:29:00) ?? (02/10/2011 22:03:00) ?? RDW [11.5-14.5 %] 14.1 % 14.3 % ? (02/11/2011 04:29:00) ?? (02/10/2011 22:03:00) ?? Platelet [133-450 K/CMM] 193 K/CMM 224 K/CMM ? (02/11/2011 04:29:00) ?? (02/10/2011 22:03:00) ?? MPV [7.4-10.4 fL] 7.8 fL 7.9 fL ? (02/11/2011 04:29:00) ?? (02/10/2011 22:03:00) ?? Segs [45.0-75.0 %] 65.8 % 60.9 % ? (02/11/2011 04:29:00) ?? (02/10/2011 22:03:00) ?? Lymphocytes [20.0-40.0 %] 26.3 % 31.7 % ? (02/11/2011 04:29:00) ?? (02/10/2011 22:03:00) ?? Monocytes [2.0-12.0 %] 6.1 % 5.7 % ? (02/11/2011 04:29:00) ?? (02/10/2011 22:03:00) ?? Eosinophils [0.0-4.0 %] 1.2 % 1.2 % ? (02/11/2011 04:29:00) ?? (02/10/2011 22:03:00) ?? Basophils [0.0-1.0 %] 0.6 % 0.5 % ? (02/11/2011 04:29:00) ?? (02/10/2011 22:03:00) ?? Segs-Bands # [1.5-8.1 K/CMM] 4.5 K/CMM 3.9 K/CMM ? (02/11/2011 04:29:00) ?? (02/10/2011 22:03:00) ?? Lymphocytes # [1.0-5.5 K/CMM] 1.8 K/CMM 2.0 K/CMM ? (02/11/2011 04:29:00) ?? (02/10/2011 22:03:00) ?? Monocytes # [0.0-0.8 K/CMM] 0.4 K/CMM 0.4 K/CMM ? (02/11/2011 04:29:00) ?? (02/10/2011 22:03:00) ?? Eosinophils # [0.0-0.5 K/CMM] 0.1 K/CMM 0.1 K/CMM ? (02/11/2011 04:29:00) ?? (02/10/2011 22:03:00) ?? Basophils # [0.0-0.2 K/CMM] 0.0 K/CMM 0.0 K/CMM ? (02/11/2011 04:29:00) ?? (02/10/2011 22:03:00) ?? PT [12.0-14.7 seconds] 13.9 seconds ? (02/10/2011 22:03:00) ?? INR [0.85-1.17] 1.07 7 ? (02/10/2011 22:03:00) ?? D-Dimer 1.10 ug/mL FEU 8 ? *NA* (02/10/2011 22:03:00) ?? PTT [22.9-35.8 seconds] 28.4 seconds 9 ? (02/10/2011 22:03:00) ?? 7Interpretive Data: RECOMMENDED RANGES FOR PROTIME INR: 2.0-3.0 for most medical and surgical thromboembolic states. 2.5-3.5 for artificial heart valves and recurrent embolism.INR SHOULD BE USED ONLY FOR PATIENTS ON STABLE ANTICOAGULANT THERAPY.8Interpretive Data: In DIC, quantitative D-Dimer is generally greater than 0.66 ug/mL FEU. Values ofquantitative D-Dimer less than 0.40 ug/mL FEU have been reported to be associated with a low probability of deep vein thrombosis/pulmonary embolism. This test alone should not be used to rule out DVT/PE.9Interpretive Data: Heparin Therapeutic Range: 57 - 92 Seconds
--- OUTSIDE RECORDS SUMMARY | 2018-08-15 15:05 | XMS REPORT | CCD ---
:1965 Author Organization [facility] Team Providers Name Role Phone Nava Orta Consulting Provider Unavailable JUSTO Huang Consulting Provider Unavailable Sophia Schafer Consulting Provider Unavailable Franny Ramsey Consulting Provider Francis Haney Consulting Provider Giovani Edwards Consulting Provider Trini Hinojosa Consulting Provider Unavailable Cinthya Lee Consulting Provider Juliana Scales Consulting Provider Unavailable Sumit David Consulting Provider [phone] Debbi Funez Consulting Provider Unavailable Halie Beck Consulting Provider Unavailable Yin Muhammad Consulting Provider [phone] Sudhir Castillo Consulting Provider Unavailable Dakota Radford Consulting Provider Crystal Hinojosa Consulting Provider Unavailable ChartServer, Login Consulting Provider Unavailable Delilah Dash Consulting Provider Unavailable Cherise Yu Consulting Provider Gisella Purdy Consulting Provider Unavailable Opal Funez Consulting Provider Unavailable Letha Gomez Consulting Provider Unavailable James Deleon Consulting Provider [phone] Kuldeep Stoddard Consulting Provider Conchita Barnes Consulting Provider Unavailable SYSTEM, SYSTEM Consulting Provider Unavailable Pablo Fisher Consulting Provider [phone] Amanda Fisher Consulting Provider Unavailable Dee Dee Lowry Consulting Provider [phone] Remi Paulson Consulting Provider Ellen Albarran Consulting Provider Unavailable Moise Davis Consulting Provider Jamie Martínez Consulting Provider Blaine Smith Consulting Provider Unavailable LaureanoTyramiguelito Vang Consulting Provider Unavailable Irene Mckeon Consulting Provider Unavailable Bety Gomez Consulting Provider Gomez, Viviane Consulting Provider [phone] Rita Tinsley Consulting Provider Unavailable Andreina Cardoso Consulting Provider [phone] Alexia Gutierres Consulting Provider Unavailable Estefany Villasenor Consulting Provider Lea Greene Consulting Provider Unavailable Allergies, Adverse Reactions, Alerts Substance Reaction Status NKDA1 ?? Active 1Pt has no food allergy Problem List Condition Effective Dates Status Abdominal pain ?? Active Cellulitis ?? Active Chest pain ?? Active Hyperglycemia ?? Active Medications Medication Instructions Start Date End Date Status aspirin 325 mg tablet, 9,750 mg, 30 tab, PO, 01/15/2011 ?? Ordered enteric coated Daily, 30 tab, Substitution Allowed, ECTAB GI cocktail 30 ml, Route: PO, Drug 01/14/2011 01/14/2011 Completed Form: SUSP, ONCE, Routine, Start date: 01/14/11 17:08:00, Stop date: 01/14/11 17:08:00 Saline Flush 0.9% 5 ml, Route: IVP, Drug 01/14/2011 01/15/2011 Discontinued Form: INJ, Q12H, Start date: 01/14/11 21:00:00, Duration: 30 day, Stop date: 02/13/11 9:00:00 Saline Flush 0.9% 5 ml, Route: IVP, Drug 01/14/2011 01/15/2011 Discontinued Form: INJ, PRN, PRN Line Flush, Start date: 01/14/11 19:21:00, Duration: 30 day, Stop date: 02/13/11 19:20:00 aspirin 81 mg tablet, 81 mg, 1 tab, Route: PO, 01/15/2011 01/15/2011 Discontinued enteric coated Drug form: ECTAB, Daily, Start date: 01/15/11 9:00:00, Duration: 30 day, Stop date: 02/13/11 9:00:00 nitroglycerin SL Tab 0.4 mg, 1 tab, Route: 01/14/2011 01/15/2011 Discontinued SL, Drug form: TAB, Q5Min, PRN Chest Pain, Start date: 01/14/11 19:21:00, Duration: 3 doses or times, Stop date: Limited # of times acetaminophen-hydrocodone 1 tab, Route: PO, Drug 01/14/2011 01/15/2011 Discontinued 500 mg-5 mg oral tablet Form: TAB, Q4H, PRN Pain Score 1-5, Start date: 01/14/11 19:21:00, Duration: 30 day, Stop date: 02/13/11 19:20:00 acetaminophen 650 mg, 2 tab, Route: 01/14/2011 01/15/2011 Discontinued PO, Drug form: TAB, Q4H, PRN Headache, Start date: 01/14/11 19:21:00, Duration: 30 day, Stop date: 02/13/11 19:20:00 temazepam 15 mg, 1 cap, Route: PO, 01/14/2011 01/15/2011 Discontinued Drug form: CAP, Bedtime, PRN Insomnia, Start date: 01/14/11 19:21:00, Duration: 30 day, Stop date: 02/13/11 19:20:00 ondansetron 4 mg, 1 tab, Route: PO, 01/14/2011 01/15/2011 Discontinued Drug form: TAB, Q8H, PRN Nausea & Vomiting, Start date: 01/14/11 19:21:00, Duration: 30 day, Stop date: 02/13/11 19:20:00 NS (Bolus) IV 1,000 mL 1,000 mL, Rate: 1,000 ml/hr, Infuse over: 1 hr, Route: IV, Total Volume: 1,000, Priority: STAT, Start date: 01/14/11 17:07:00, Duration : 1 doses or times, Stop date: 01/14/11 18:06:00, Bolus Dose 01/14/20112010 Completed Bolus Dose Nitrostat 0.4 mg 1 tab, SL, Q5Min, PRN, 01/15/2011 ?? Incomplete sublingual tablet 100 tab, Chest Pain, Substitution Allowed Levemir FlexPen 70 unit, 0.7 mL, Route: 01/14/2011 01/15/2011 Discontinued SUB-Q, Drug form: INJ, Bedtime, Start date: 01/14/11 21:00:00, Duration: 30 day, Stop date: 02/12/11 21:00:00 Requip 1 mg, 1 tab, Route: PO, 01/15/2011 01/15/2011 Canceled Drug form: TAB, Bedtime, Start date: 01/15/11 21:00:00, Duration: 30 day, Stop date: 02/13/11 21:00:00 Fioricet oral tablet 1 tab, PO, Q4H, PRN, 30 01/15/2011 ?? Ordered tab, Headache, Substitution Allowed, Maintenance, TAB ibuprofen 400 mg oral 400 mg, 1 tab, Route: 01/15/2011 01/15/2011 Discontinued tablet PO, Drug form: TAB, Q8H, Start date: 01/15/11 0:00:00, Duration: 30 day, Stop date: 02/13/11 16:00:00 metoprolol 12.5 mg, 0.5 tab, Route: 01/15/2011 01/15/2011 Discontinued PO, Drug form: TAB, Q12H, Priority: NOW, Start date: 01/15/11 10:36:00, Duration: 30 day, Stop date: 02/14/11 9:00:00 aspirin 325 mg tablet, 325 mg, 1 tab, Route: 01/16/2011 01/15/2011 Canceled enteric coated PO, Drug form: ECTAB, Daily, Start date: 01/16/11 9:00:00, Duration: 30 day, Stop date: 02/14/11 9:00:00 Requip 1 mg oral tablet 1 mg, 1 tab, PO, 01/15/2011 ?? Ordered Bedtime, Substitution Allowed Lantus 70 unit, Route: SUB-Q, 01/14/2011 01/14/2011 Deleted Bedtime, Start date: 01/14/11 21:00:00, Duration: 30 day, Stop date: 02/12/11 21:00:00 Fioricet 1 tab, Route: PO, Drug 01/15/2011 01/15/2011 Discontinued Form: TAB, Q4H, PRN Headache, Start date: 01/15/11 9:15:00, Duration: 30 day, Stop date: 02/14/11 9:14:00 Omnipaque 300 45,000 mg, 150 mL, 01/14/2011 01/14/2011 Ordered Route: IV, Drug form: INJ, ONCE, Start date: 01/14/11 17:39:00, Stop date: 01/14/11 17:39:00 glucagon 1 mg, Route: IM, Drug 01/14/2011 01/15/2011 Discontinued form: PDR/INJ, PRN, PRN Blood Glucose Results, Start date: 01/14/11 19:22:00, Duration: 30 day, Stop date: 02/13/11 19:21:00 Insulin (Novolog) Sliding 6 unit, 0.06 mL, Route: 01/14/2011 01/15/2011 Discontinued Scale - Very High SUB-Q, Drug form: SOLN, Sliding Scale, PRN Blood Glucose Results, Start date: 01/14/11 19:22:00, Duration: 30 day, Stop date: 02/13/11 19:21:00 Dextrose 50% Syringe 25 gm, 50 ml, Route: IM, 01/14/2011 01/15/2011 Discontinued Drug Form: INJ, PRN, PRN Blood Glucose Results, Start date: 01/14/11 19:22:00, Duration: 30 day, Stop date: 02/13/11 19:21:00 Insulin (Novolog) Sliding 15 unit, 0.15 mL, Route: 01/14/2011 01/15/2011 Discontinued Scale - Very High SUB-Q, Drug form: SOLN, Sliding Scale, PRN Blood Glucose Results, Start date: 01/14/11 19:22:00, Duration: 30 day, Stop date: 02/13/11 19:21:00 Insulin (Novolog) Sliding 7 unit, 0.07 mL, Route: 01/14/2011 01/15/2011 Discontinued Scale - Very High SUB-Q, Drug form: SOLN, Sliding Scale, PRN Blood Glucose Results, Start date: 01/14/11 19:22:00, Duration: 30 day, Stop date: 02/13/11 19:21:00 Insulin (Novolog) Sliding 21 unit, 0.21 mL, Route: 01/14/2011 01/15/2011 Discontinued Scale - Very High SUB-Q, Drug form: SOLN, Sliding Scale, PRN Blood Glucose Results, Start date: 01/14/11 19:22:00, Duration: 30 day, Stop date: 02/13/11 19:21:00 Insulin (Novolog) Sliding 18 unit, 0.18 mL, Route: 01/14/2011 01/15/2011 Discontinued Scale - Very High SUB-Q, Drug form: SOLN, Sliding Scale, PRN Blood Glucose Results, Start date: 01/14/11 19:22:00, Duration: 30 day, Stop date: 02/13/11 19:21:00 Insulin (Novolog) Sliding 25 unit, 0.25 mL, Route: 01/14/2011 01/15/2011 Discontinued Scale - Very High SUB-Q, Drug form: SOLN, Sliding Scale, PRN Blood Glucose Results, Start date: 01/14/11 19:22:00, Duration: 30 day, Stop date: 02/13/11 19:21:00 aspirin 325 mg tablet 325 mg, 1 tab, Route: 01/14/2011 01/14/2011 Completed PO, Drug form: TAB, ONCE, Priority: STAT, Start date: 01/14/11 18:59:00, Stop date: 01/14/11 18:59:00 Saline Flush 0.9% 5 ml, Route: IVP, Drug 01/14/2011 01/15/2011 Discontinued Form: INJ, PRN, PRN Line Flush, Start date: 01/14/11 15:20:00, Duration: 30 day, Stop date: 02/13/11 15:19:00 metoprolol 25 mg oral 12.5 mg, PO, Q12H, 30 01/15/2011 ?? Ordered tablet tab, Substitution Allowed, TAB Insulin regular 5 unit, 0.05 mL, Route: 01/14/2011 01/14/2011 Completed IVP, Drug form: SOLN, ONCE, Priority: STAT, Start date: 01/14/11 17:10:00, Stop date: 01/14/11 17:10:00 Vital Signs Most recent to oldest 1 2 3 [Reference Range]: Height 162.56 cm 162.56 cm ?? (01/14/2011 20:35:00) ?? (01/14/2011 15:07:00) ?? Temperature Oral 97.0 DegF 97.2 DegF 97.9 DegF [96.4-99.1 DegF] (01/15/2011 11:44:00) ?? (01/15/2011 07:18:00) ?? (2010 04:30:00) ?? Systolic Blood Pressure 105 mmHg 106 mmHg 110 mmHg [90-140 mmHg] (01/15/2011 11:44:00) ?? (01/15/2011 07:18:00) ?? (01/15/2011 04:30:00) ?? Diastolic Blood Pressure 59 mmHg 59 mmHg 58 mmHg [60-90 mmHg] *LOW* *LOW* *LOW* (01/15/2011 11:44:00) ?? (01/15/2011 07:18:00) ?? (01/15/2011 04:30:00) ?? Respiratory Rate [14-20 18 BRMIN 18 BRMIN 18 BRMIN BRMIN] (01/15/2011 11:44:00) ?? (01/15/2011 07:18:00) ?? (01/15/2011 04:30: 00) ?? Peripheral Pulse Rate 59 bpm 71 bpm 62 bpm [60-100 bpm] *LOW* (01/15/2011 07:18:00) ?? (01/15/2011 04:30:00) ?? (01/15/2011 11:44:00) ?? Weight 56.818 kg 50.000 kg ?? (01/14/2011 20:35:00) ?? (01/14/2011 15:07:00) ?? Results BEDSIDE GLUCOSE TESTING Most recent to oldest 1 2 3 [Reference Range]: Gluc POC Lifscn [65-110 175 mg/dL 1 88 mg/dL 2 70 mg/dL 3 mg/dL] *HI* (01/15/2011 07:16:00) ?? (01/15/2011 06:27:00) ?? (01/15/2011 11:39:00) ?? Comment1 Notify RN/MD Notify RN/MD Notify RN/MD *NA* *NA* *NA* (01/15/2011 11:39:00) ?? (01/15/2011 07:16:00) ?? (01/15/2011 06:27:00) ?? 1Interpretive Data: Upper Reportable Limit: 200 mg/dL.2Interpretive Data: Upper Reportable Limit: 200 mg/dL.3Interpretive Data: Upper Reportable Limit: 200 mg/dL.CHEMISTRY Most recent to oldest 1 2 3 [Reference Range]: Sodium Lvl [135-145 mEq/L] 141 mEq/L 133 mEq/L ?? (01/15/2011 05:45:00) ?? *LOW* (01/14/2011 15:36:00) ?? Potassium Lvl [3.5-5.1 3.4 mEq/L 3.8 mEq/L ?? mEq/L] *LOW* (01/14/2011 15:36:00) ?? (01/15/2011 05:45:00) ?? Chloride Lvl [95-109 101 mEq/L 100 mEq/L ?? mEq/L] (01/15/2011 05:45:00) ?? (01/14/2011 15:36:00) ?? CO2 [24-32 mEq/L] 25 mEq/L 22 mEq/L ?? (01/15/2011 05:45:00) ?? *LOW* (01/14/2011 15:36:00) ?? AGAP [10.0-20.0 mEq/L] 18.4 mEq/L 14.8 mEq/L ?? (01/15/2011 05:45:00) ?? (01/14/2011 15:36:00) ?? Creatinine Lvl [0.5-1.4 0.6 mg/dL 0.8 mg/dL ?? mg/dL] (01/15/2011 05:45:00) ?? (01/14/2011 15:36:00) ?? BUN [7-22 mg/dL] 13 mg/dL 9 mg/dL ?? (01/15/2011 05:45:00) ?? (01/14/2011 15:36:00) ?? B/C Ratio [6-25] 11 ? (01/14/2011 15:36:00) ?? Glucose Lvl 122 mg/dL 4 478 mg/dL 5,??6 ?? *NA* *CRIT* (01/15/2011 05:45:00) ?? (01/14/2011 15:36:00) ?? Total Protein [6.4-8.4 7.4 g/dL ? g/dL] (01/14/2011 15:36:00) ?? Albumin Lvl [3.5-5.0 g/dL] 3.8 g/dL ? (01/14/2011 15:36:00) ?? Globulin [2.0-4.0 g/dL] 3.6 g/dL ? (01/14/2011 15:36:00) ?? A/G Ratio [0.7-1.6] 1.1 ? (01/14/2011 15:36:00) ?? Calcium Lvl [8.5-10.5 8.0 mg/dL 8.6 mg/dL ?? mg/dL] *LOW* (01/14/2011 15:36:00) ?? (01/15/2011 05:45:00) ?? ALT [0-65 U/L] 17 U/L ? (01/14/2011 15:36:00) ?? AST [0-37 U/L] <3 U/L ? (01/14/2011 15:36:00) ?? Alk Phos [39-136 U/L] 71 U/L ? (01/14/2011 15:36:00) ?? Bili Total [0.2-1.3 mg/dL] 0.5 mg/dL ? (01/14/2011 15:36:00) ?? Total CK [12-191 U/L] 88 U/L 83 U/L 78 U/L (01/15/2011 05:45:00) ?? (01/14/2011 20:43:00) ?? (01/14/2011 15:36:00) ?? CK MB [0.5-3.6 ng/mL] <0.5 ng/mL <0.5 ng/mL <0.5 ng/mL (01/15/2011 05:45:00) ?? (01/14/2011 20:43:00) ?? (01/14/2011 15:36:00) ?? CK MB Index [0.0-2.5] <0.6 <0.6 <0.6 (01/15/2011 05:45:00) ?? (01/14/2011 20:43:00) ?? (01/14/2011 15:36:00) ?? Troponin-I [0.00-0.40 <0.02 ng/mL <0.02 ng/mL <0.02 ng/mL ng/mL] (01/15/2011 05:45:00) ?? (01/14/2011 20:43:00) ?? (01/14/2011 15:36: 00) ?? BNP [<<=100 pg/mL] 13 pg/mL 7 ? (01/14/2011 15:36:00) ?? CHD Risk [3.90-5.80] 3.80 ? *LOW* (01/15/2011 05:45:00) ?? Chol [120-200 mg/dL] 171 mg/dL ? (01/15/2011 05:45:00) ?? Trig [0-200 mg/dL] 150 mg/dL ? (01/15/2011 05:45:00) ?? HDL [>>=35 mg/dL] 45 mg/dL ? (01/15/2011 05:45:00) ?? LDL [0-129 mg/dL] 96 mg/dL ? (01/15/2011 05:45:00) ?? U Preg [>Negative] Negative ? (01/14/2011 16:36:00) ?? 4Interpretive Data: Reference Ranges : 0 - 7 days : 41 - 90 mg/dL7 days - 150 yrs : 70 - 99 mg/dL (fasting), based on the clinical recommendations of the [place] [employer].5Result Comment: Critical Result(s) called to [place] at 01/14/2011 16:22 by sa. Read back OK.6Interpretive Data: Reference Ranges : 0 - 7 days : 41 - 90 mg/dL7 days - 150 yrs : 70 - 99 mg/dL ( fasting), based on the clinical recommendations of the [place] [employer].7Interpretive Data: Elevated results are in line with increasing severity of congestive heart failure. Minor elevations between 100 and 300 may be seen with Myocardial Ischemia, Sodium retaining drugs, and compensated/ treated heart failure.HEMATOLOGY Most recent to oldest [Reference Range]: 1 2 3 WBC [3.7-10.4 K/CMM] 5.6 K/CMM ? (01/14/2011 15:36:00) ?? RBC [4.20-5.40 M/CMM] 4.60 M/CMM ? (01/14/2011 15:36:00) ?? Hgb [12.0-16.0 g/dL] 13.2 g/dL ? (01/14/2011 15:36:00) ?? Hct [36.0-48.0 %] 38.9 % ? (01/14/2011 15:36:00) ?? MCV [81.0-99.0 fL] 84.6 fL ? (01/14/2011 15:36:00) ?? MCH [27.0-31.0 pg] 28.8 pg ? (01/14/2011 15:36:00) ?? MCHC [32.0-36.0 g/dL] 34.0 g/dL ? (01/14/2011 15:36:00) ?? RDW [11.5-14.5 %] 14.6 % ? *HI* (01/14/2011 15:36:00) ?? Platelet [133-450 K/CMM] 231 K/CMM ? (01/14/2011 15:36:00) ?? MPV [7.4-10.4 fL] 8.0 fL ? (01/14/2011 15:36:00) ?? Segs [45.0-75.0 %] 63.0 % ? (01/14/2011 15:36:00) ?? Lymphocytes [20.0-40.0 %] 30.7 % ? (01/14/2011 15:36:00) ?? Monocytes [2.0-12.0 %] 4.5 % ? (01/14/2011 15:36:00) ?? Eosinophils [0.0-4.0 %] 0.9 % ? (01/14/2011 15:36:00) ?? Basophils [0.0-1.0 %] 0.9 % ? (01/14/2011 15:36:00) ?? Segs-Bands # [1.5-8.1 K/CMM] 3.5 K/CMM ? (01/14/2011 15:36:00) ?? Lymphocytes # [1.0-5.5 K/CMM] 1.7 K/CMM ? (01/14/2011 15:36:00) ?? Monocytes # [0.0-0.8 K/CMM] 0.3 K/CMM ? (01/14/2011 15:36:00) ?? Eosinophils # [0.0-0.5 K/CMM] 0.1 K/CMM ? (01/14/2011 15:36:00) ?? Basophils # [0.0-0.2 K/CMM] 0.0 K/CMM ? (01/14/2011 15:36:00) ?? PT [12.0-14.7 seconds] 13.6 seconds ? (01/14/2011 15:36:00) ?? INR [0.85-1.17] 1.04 8 ? (01/14/2011 15:36:00) ?? D-Dimer 1.50 ug/mL FEU 9 ? *NA* (01/14/2011 15:36:00) ?? PTT [22.9-35.8 seconds] 30.2 seconds 10 ? (01/14/2011 15:36:00) ?? 8Interpretive Data: RECOMMENDED RANGES FOR PROTIME INR: 2.0-3.0 for most medical and surgical thromboembolic states. 2.5-3.5 for artificial heart valves and recurrent embolism.INR SHOULD BE USED ONLY FOR PATIENTS ON STABLE ANTICOAGULANT THERAPY.9Interpretive Data: In DIC, quantitative D-Dimer is generally greater than 0.66 ug/mL FEU. Values ofquantitative D-Dimer less than 0.40 ug/mL FEU have been reported to be associated with a low probability of deep vein thrombosis/pulmonary embolism. This test alone should not be used to rule out DVT/PE.10Interpretive Data: Heparin Therapeutic Range: 57 - 92 Seconds
--- OUTSIDE RECORDS SUMMARY | 2018-08-15 15:05 | XMS REPORT | CCD ---
:1965 Author Organization [facility] Team Providers Name Role Phone Cinthya Lee Consulting Provider Sudhir Castillo Consulting Provider Unavailable ChartServer, Login Consulting Provider Unavailable Cherise Yu Consulting Provider Sonal Cabezas Consulting Provider Unavailable Jimena Mejia Consulting Provider Unavailable Remi Paulson Consulting Provider Moise Davis Consulting Provider Alexia Gutierres Consulting Provider Unavailable Estefany Villasenor Consulting Provider Lea Greene Consulting Provider Unavailable Allergies, Adverse Reactions, Alerts Substance Reaction Status NKDA1 ?? Active 1Pt has no food allergy Problem List Condition Effective Dates Status Abdominal pain ?? Active Cellulitis ?? Active Chest pain ?? Active Hyperglycemia ?? Active Medications Medication Instructions Start Date End Date Status ibuprofen 400 mg oral 1 tab, PO, Q4H, PRN, 12/22/2010 ?? Incomplete tablet tab, Pain, Substitution Allowed acetaminophen-hydrocodone 1 tab, PO, Q4-6H, PRN, 20 12/22/2010 12/26/2010 Ordered 500 mg-5 mg oral tablet tab, Pain, Substitution Allowed, Maintenance acetaminophen-hydrocodone 1 tab, Route: PO, Drug 12/22/2010 12/22/2010 Completed 500 mg-5 mg oral tablet Form: TAB, ONCE, STAT, Start date: 12/22/10 12:39:00, Stop date: 12/22/10 12:39:00 Vital Signs Most recent to oldest [Reference 1 2 Range]: Height 162.56 cm ?? (12/22/2010 11:57:00) ?? Temperature Oral [96.4-99.1 DegF] 98.2 DegF ?? (12/22/2010 11:57:00) ?? Systolic Blood Pressure [90-140 115 mmHg 125 mmHg mmHg] (12/22/2010 13:51:00) ?? (12/22/2010 11:57:00) ?? Diastolic Blood Pressure [60-90 78 mmHg 77 mmHg mmHg] (12/22/2010 13:51:00) ?? (12/22/2010 11:57:00) ?? Respiratory Rate [14-20 BRMIN] 16 BRMIN 16 BRMIN (12/22/2010 13:51:00) ?? (12/22/2010 11:57:00) ?? Peripheral Pulse Rate [60-100 bpm] 74 bpm 75 bpm (12/22/2010 13:51:00) ?? (12/22/2010 11:57:00) ?? Weight 52.273 kg ?? (12/22/2010 11:57:00) ??
--- OUTSIDE RECORDS SUMMARY | 2018-08-15 15:06 | XMS REPORT | CCD ---
:1965 Author Organization [facility] Team Providers Name Role Phone Tay Roche Consulting Provider Allergies, Adverse Reactions, Alerts Substance Reaction Status NKDA1 Active 1Pt has no food allergy Problem List Condition Effective Dates Status Abdominal pain Active Cellulitis Active Chest pain Active Hyperglycemia Active UTI - Urinary tract infection Active Medications Medication Instructions Start Date End Date Status [place] 5/325 oral tablet 1-2 tab, PO, Q4-6H, 10/25/2011 10/30/2011 Ordered PRN, 15 tab, Pain, Substitution Allowed, Soft Stop Zofran ODT 4 mg oral 4 mg, 1 tab, PO, TID, 10/25/2011 Ordered tablet, disintegrating PRN, 10 tab, Nausea and Vomiting, Substitution Allowed morphine Sulfate 4 mg, 2 mL, Route: IVP, 10/24/2011 10/24/2011 Completed Drug form: INJ, ONCE, Priority: STAT, Start date: 10/24/11 22:06:00, Stop date: 10/24/11 22:06:00 diphenhydrAMINE 25 mg, Route: IVP, 10/25/2011 10/25/2011 Completed ONCE, Priority: STAT, Start date: 10/25/11 0:06:00, Stop date: 10/25/11 0:06:00 Sodium Chloride 0.9% 1,000 mL, Rate: 1,000 10/24/2011 10/24/2011 Completed (Bolus) IV 1,000 mL ml/hr, Infuse over: 1 hr, Route: IVPB, Dosing Weight 54.545 kg, Total Volume: 1,000, Bolus Dose, Priority: STAT, Start date: 10/24/11 22:06:00, Duration: 1 doses or times, Stop date: 10/24/11 23:05:00 Saline Flush 0.9% 5 ml, Route: IVP, Drug 10/24/2011 10/25/2011 Discontinued Form: INJ, PRN, PRN Line Flush, Start date: 10/24/11 22:06:00, Duration: 30 day, Stop date: 11/23/11 22:05:00 ondansetron 4 mg, 2 mL, Route: IVP, 10/24/2011 10/24/2011 Completed Drug form: INJ, ONCE, Priority: STAT, Start date: 10/24/11 22:06:00, Stop date: 10/24/11 22:06:00 Insulin regular 5 unit, 0.05 mL, Route: 10/24/2011 10/24/2011 Completed IV, Drug form: SOLN, ONCE, Priority: STAT, Start date: 10/24/11 22:06:00, Stop date: 10/24/11 22:06:00 morphine Sulfate 4 mg, 2 mL, Route: IVP, 10/25/2011 10/25/2011 Completed Drug form: INJ, ONCE, Priority: STAT, Start date: 10/25/11 0:22:00, Stop date: 10/25/11 0:22:00 Vital Signs Most recent to oldest [Reference Range]: 1 Height 162.56 cm (10/24/2011 21:45:00) Weight 54.545 kg (10/24/2011 21:45:00) Results BEDSIDE GLUCOSE TESTING Most recent to oldest 1 2 3 [Reference Range]: Gluc POC Lifscn [70-99 224 mg/dL 1 94 mg/dL 2 >400 mg/dL 3 mg/dL] *HI* (10/25/2011 00:04:00) *CRIT* (10/25/2011 01:10:00) (10/24/2011 21:43:00) Comment1 Notify RN/MD *NA* (10/24/2011 21:43:00) 1Interpretive Data: Upper Reportable Limit: 200 mg/dL.2Interpretive Data: Upper Reportable Limit: 200 mg/dL.3Interpretive Data: Upper Reportable Limit: 200 mg/dL.URINALYSIS Most recent to oldest [Reference Range]: 1 2 3 UA Turbidity [Clear] Clear (10/24/2011 22:05:00) UA Color [Yellow] Yellow *NA* (10/24/2011 22:05:00) UA pH [5.0-8.0] 6.0 (10/24/2011 22:05:00) UA Spec Grav [<=1.030] 1.015 (10/24/2011 22:05:00) UA Glucose [Negative mg/dL] >=1000 mg/dL *ABN* (10/24/2011 22:05:00) UA Blood [Negative] Negative (10/24/2011 22:05:00) UA Ketones [Negative] Negative *NA* (10/24/2011 22:05:00) UA Protein [Negative] Negative (10/24/2011 22:05:00) UA Urobilinogen [0.1-1.0 EU/dL] 0.2 EU/dL (10/24/2011 22:05:00) UA Bili [Negative] Negative *NA* (10/24/2011 22:05:00) UA Leuk Est [Negative] Negative (10/24/2011 22:05:00) UA Nitrite [Negative] Positive *ABN* (10/24/2011 22:05:00) UA WBC [None Seen /HPF] 6-10 /HPF *ABN* (10/24/2011 22:05:00) UA RBC [0-2 /HPF] 0-2 /HPF (10/24/2011 22:05:00) UA Bacteria [None Seen /HPF] Moderate /HPF (10/24/2011 22:05:00) UA Sq Epi [Few /LPF] Rare /LPF (10/24/2011 22:05:00) UA Mucus [None Seen /LPF] Rare /LPF (10/24/2011 22:05:00) Micro? Performed (10/24/2011 22:05:00) CHEMISTRY Most recent to oldest [Reference Range]: 1 2 3 Sodium Lvl [135-145 mEq/L] 135 mEq/L (10/24/2011 22:05:00) Potassium Lvl [3.5-5.1 mEq/L] 4.2 mEq/L (10/24/2011 22:05:00) Chloride Lvl [95-109 mEq/L] 100 mEq/L (10/24/2011 22:05:00) CO2 [24-32 mEq/L] 27 mEq/L (10/24/2011 22:05:00) AGAP [10.0-20.0 mEq/L] 12.2 mEq/L (10/24/2011 22:05:00) Creatinine Lvl [0.5-1.4 mg/dL] 0.8 mg/dL (10/24/2011 22:05:00) BUN [7-22 mg/dL] 19 mg/dL (10/24/2011 22:05:00) B/C Ratio [6-25] 24 (10/24/2011 22:05:00) Glucose Lvl [70-99 mg/dL] 431 mg/dL 4, 5 *CRIT* (10/24/2011 22:05:00) Total Protein [6.4-8.4 g/dL] 7.5 g/dL (10/24/2011 22:05:00) Albumin Lvl [3.5-5.0 g/dL] 3.8 g/dL (10/24/2011 22:05:00) Globulin [2.0-4.0 g/dL] 3.7 g/dL (10/24/2011 22:05:00) A/G Ratio [0.7-1.6] 1.0 (10/24/2011 22:05:00) Calcium Lvl [8.5-10.5 mg/dL] 8.4 mg/dL *LOW* (10/24/2011 22:05:00) ALT [0-65 U/L] 17 U/L (10/24/2011 22:05:00) AST [0-37 U/L] 10 U/L (10/24/2011 22:05:00) Alk Phos [39-136 U/L] 100 U/L (10/24/2011 22:05:00) Bili Total [0.2-1.3 mg/dL] 0.3 mg/dL (10/24/2011 22:05:00) Amylase Lvl [25-115 U/L] 153 U/L *HI* (10/24/2011 22:05:00) Lipase Lvl [73-393 U/L] 181 U/L (10/24/2011 22:05:00) Ketone Quantitative [<=0.27 mmol/L] 0.22 mmol/L (10/24/2011 22:05:00) pH Korey [7.28-7.42] 7.42 (10/24/2011 22:06:00) pCO2 Korey [38-52 mmHg] 40 mmHg (10/24/2011 22:06:00) pO2 Korey [20-49 mmHg] 72 mmHg *HI* (10/24/2011 22:06:00) HCO3 Korey [22-26 mMol/L] 26 mMol/L (10/24/2011 22:06:00) BE Korey [-2-2 mMol/L] 1 mMol/L (10/24/2011 22:06:00) O2 Sat Korey [40.0-70.0 %] 95.0 % *HI* (10/24/2011 22:06:00) Flow Korey 0.0 *NA* (10/24/2011 22:06:00) Mode Korey Rm Air (10/24/2011 22:06:00) 4Result Comment: Critical Result(s) called to at 10/24/2011 22:42:11 CDT bylp. Read back OK.5Interpretive Data: Adult reference range values reflect the clinical guidelines of the [place] [employer].HEMATOLOGY Most recent to oldest [Reference Range]: 1 2 3 WBC [3.7-10.4 K/CMM] 6.9 K/CMM (10/24/2011 22:05:00) RBC [4.20-5.40 M/CMM] 4.57 M/CMM (10/24/2011 22:05:00) Hgb [12.0-16.0 g/dL] 13.3 g/dL (10/24/2011 22:05:00) Hct [36.0-48.0 %] 39.4 % (10/24/2011 22:05:00) MCV [81.0-99.0 fL] 86.2 fL (10/24/2011 22:05:00) MCH [27.0-31.0 pg] 29.1 pg (10/24/2011 22:05:00) MCHC [32.0-36.0 g/dL] 33.8 g/dL (10/24/2011 22:05:00) RDW [11.5-14.5 %] 14.0 % (10/24/2011 22:05:00) Platelet [133-450 K/CMM] 271 K/CMM (10/24/2011 22:05:00) MPV [7.4-10.4 fL] 8.0 fL (10/24/2011 22:05:00) Segs [45.0-75.0 %] 63.3 % (10/24/2011 22:05:00) Lymphocytes [20.0-40.0 %] 29.4 % (10/24/2011 22:05:00) Monocytes [2.0-12.0 %] 5.7 % (10/24/2011 22:05:00) Eosinophils [0.0-4.0 %] 1.2 % (10/24/2011 22:05:00) Basophils [0.0-1.0 %] 0.4 % (10/24/2011 22:05:00) Segs-Bands # [1.5-8.1 K/CMM] 4.3 K/CMM (10/24/2011 22:05:00) Lymphocytes # [1.0-5.5 K/CMM] 2.0 K/CMM (10/24/2011 22:05:00) Monocytes # [0.0-0.8 K/CMM] 0.4 K/CMM (10/24/2011 22:05:00) Eosinophils # [0.0-0.5 K/CMM] 0.1 K/CMM (10/24/2011 22:05:00) Basophils # [0.0-0.2 K/CMM] 0.0 K/CMM (10/24/2011 22:05:00)
--- OUTSIDE RECORDS SUMMARY | 2018-08-15 15:06 | XMS REPORT | CCD ---
:1965 Author Organization [facility] Team Providers Name Role Phone Mila Phelpst Consulting Provider Allergies, Adverse Reactions, Alerts Substance Reaction Status [id number] Active 1Pt has no food allergy Problem List Condition Effective Dates Status Abdominal pain Active Cellulitis Active Chest pain Active Hyperglycemia Active UTI - Urinary tract infection Active Medications Medication Instructions Start Date End Date Status Cipro 500 mg oral tablet 500 mg, 1 tab, PO, BID, 04/20/2011 Ordered 20 tab, Substitution Allowed [place] 10/325 oral tablet 1 tab, PO, Q4-6H, PRN, 04/20/2011 04/24/2011 Ordered 24 tab, as needed for pain, Substitution Allowed, Maintenance Zofran ODT 4 mg oral 4 mg, 1 tab, PO, TID, 04/20/2011 Ordered tablet, disintegrating PRN, 10 tab, Nausea and Vomiting, Substitution Allowed Sodium Chloride 0.9% 1,000 mL, Rate: 1,000 04/19/2011 04/19/2011 Completed (Bolus) IV 1,000 mL ml/hr, Infuse over: 1 hr, Route: IV, Total Volume: 1,000, Bolus Dose, Priority: STAT, Start date: 04/19/11 21:30:00, Duration: 1 doses or times, Stop date: 04/19/11 22:29:00 Saline Flush 0.9% 5 ml, Route: IVP, Drug 04/19/2011 04/20/2011 Discontinued Form: INJ, PRN, PRN Line Flush, Start date: 04/19/11 21:30:00, Duration: 30 day, Stop date: 05/19/11 21:29:00 ondansetron 4 mg, Route: IVP, ONCE, 04/19/2011 04/19/2011 Completed Priority: STAT, Start date: 04/19/11 21:30:00, Stop date: 04/19/11 21:30:00 ketorolac 30 mg, Route: IVP, ONCE, 04/19/2011 04/19/2011 Completed Priority: STAT, Start date: 04/19/11 21:30:00, Stop date: 04/19/11 21:30:00 hydromorphone 1 mg, Route: IVP, ONCE, 04/19/2011 04/19/2011 Completed Priority: STAT, Start date: 04/19/11 21:30:00, Stop date: 04/19/11 21:30:00 Insulin regular 10 unit, 0.1 mL, Route: 04/19/2011 04/20/2011 Completed IVP, Drug form: SOLN, ONCE, Priority: STAT, Start date: 04/19/11 23:31:00, Stop date: 04/19/11 23:31:00 hydromorphone 1 mg, 0.5 mL, Route: 04/19/2011 04/20/2011 Completed IVP, Drug form: INJ, ONCE, Priority: STAT, Start date: 04/19/11 23:38:00, Stop date: 04/19/11 23:38:00 Vital Signs Most recent to oldest 1 2 3 [Reference Range]: Temperature Oral 98.0 DegF [96.4-99.1 DegF] (04/19/2011 20:25:00) Systolic Blood Pressure 119 mmHg 148 mmHg 122 mmHg [90-140 mmHg] (04/20/2011 01:05:00) *HI* (04/19/2011 20:25:00) (04/20/2011 00:01:00) Diastolic Blood Pressure 75 mmHg 97 mmHg 75 mmHg [60-90 mmHg] (04/20/2011 01:05:00) *HI* (04/19/2011 20:25:00) (04/20/2011 00:01:00) Respiratory Rate [14-20 18 BRMIN 20 BRMIN 18 BRMIN BRMIN] (04/20/2011 01:05:00) (04/20/2011 00:01:00) (04/19/2011 20:25:00) Peripheral Pulse Rate 79 bpm 80 bpm 79 bpm [60-100 bpm] (04/20/2011 01:05:00) (04/20/2011 00:01:00) (04/19/2011 20:25: 00) Weight 50.000 kg (04/19/2011 20:25:00) Results BEDSIDE GLUCOSE TESTING Most recent to oldest [Reference Range]: 1 Gluc POC Lif[place]n [65-110 mg/dL] 149 mg/dL 1 *HI* (04/20/2011 00:51:00) 1Interpretive Data: Upper Reportable Limit: 200 mg/dL.URINALYSIS Most recent to oldest [Reference Range]: 1 UA Turbidity [Clear] Clear (04/19/2011 20:29:00) UA Color [Yellow] Yellow *NA* (04/19/2011 20:29:00) UA pH [5.0-8.0] 6.0 (04/19/2011 20:29:00) UA Spec Grav [<=1.030] <=1.005 *NA* (04/19/2011 20:29:00) UA Glucose [Negative mg/dL] >=1000 mg/dL *ABN* (04/19/2011 20:29:00) UA Blood [Negative] Negative (04/19/2011 20:29:00) UA Ketones [Negative] Negative *NA* (04/19/2011 20:29:00) UA Protein [Negative] Negative (04/19/2011 20:29:00) UA Urobilinogen [0.1-1.0 EU/dL] 0.2 EU/dL (04/19/2011 20:29:00) UA Bili [Negative] Negative *NA* (04/19/2011 20:29:00) UA Leuk Est [Negative] Negative (04/19/2011 20:29:00) UA Nitrite [Negative] Negative (04/19/2011 20:29:00) UA WBC [None Seen /HPF] 3-5 /HPF (04/19/2011 20:29:00) UA RBC [0-2 /HPF] 0-2 /HPF (04/19/2011 20:29:00) UA Bacteria [None Seen /HPF] Occasional /HPF (04/19/2011 20:29:00) UA Sq Epi [Few /LPF] Occasional /LPF (04/19/2011 20:29:00) Micro? Performed (04/19/2011 20:29:00) CHEMISTRY Most recent to oldest [Reference Range]: 1 Sodium Lvl [135-145 mEq/L] 132 mEq/L *LOW* (04/19/2011 22:20:00) Potassium Lvl [3.5-5.1 mEq/L] 4.2 mEq/L (04/19/2011 22:20:00) Chloride Lvl [95-109 mEq/L] 96 mEq/L (04/19/2011 22:20:00) CO2 [24-32 mEq/L] 24 mEq/L (04/19/2011 22:20:00) AGAP [10.0-20.0 mEq/L] 16.2 mEq/L (04/19/2011 22:20:00) Creatinine Lvl [0.5-1.4 mg/dL] 0.8 mg/dL (04/19/2011 22:20:00) BUN [7-22 mg/dL] 12 mg/dL (04/19/2011 22:20:00) B/C Ratio [6-25] 15 (04/19/2011 22:20:00) Glucose Lvl 499 mg/dL 2, 3 *CRIT* (04/19/2011 22:20:00) Total Protein [6.4-8.4 g/dL] 8.1 g/dL (04/19/2011 22:20:00) Albumin Lvl [3.5-5.0 g/dL] 4.0 g/dL (04/19/2011 22:20:00) Globulin [2.0-4.0 g/dL] 4.1 g/dL *HI* (04/19/2011 22:20:00) A/G Ratio [0.7-1.6] 1.0 (04/19/2011 22:20:00) Calcium Lvl [8.5-10.5 mg/dL] 9.2 mg/dL (04/19/2011 22:20:00) ALT [0-65 U/L] 14 U/L (04/19/2011 22:20:00) AST [0-37 U/L] 4 U/L (04/19/2011 22:20:00) Alk Phos [39-136 U/L] 92 U/L (04/19/2011 22:20:00) Bili Total [0.2-1.3 mg/dL] 0.4 mg/dL (04/19/2011 22:20:00) Amylase Lvl [25-115 U/L] 70 U/L (04/19/2011 22:20:00) Lipase Lvl [73-393 U/L] 168 U/L (04/19/2011 22:20:00) Ketones Qual [Negative] Negative (04/19/2011 22:20:00) 2Result Comment: Critical Result(s) called to umer at 04/19/2011 23:31 by rca. Read back OK.3Interpretive Data: Reference Ranges : 0 - 7 days : 41 - 90 mg /dL7 days - 150 yrs : 70 - 99 mg/dL (fasting), based on the clinical recommendations of the [place] [employer].HEMATOLOGY Most recent to oldest [Reference Range]: 1 WBC [3.7-10.4 K/CMM] 8.6 K/CMM (04/19/2011 22:20:00) RBC [4.20-5.40 M/CMM] 4.54 M/CMM (04/19/2011 22:20:00) Hgb [12.0-16.0 g/dL] 13.3 g/dL (04/19/2011 22:20:00) Hct [36.0-48.0 %] 39.3 % (04/19/2011 22:20:00) MCV [81.0-99.0 fL] 86.5 fL (04/19/2011 22:20:00) MCH [27.0-31.0 pg] 29.3 pg (04/19/2011 22:20:00) MCHC [32.0-36.0 g/dL] 33.9 g/dL (04/19/2011 22:20:00) RDW [11.5-14.5 %] 14.0 % (04/19/2011 22:20:00) Platelet [133-450 K/CMM] 266 K/CMM (04/19/2011 22:20:00) MPV [7.4-10.4 fL] 7.9 fL (04/19/2011 22:20:00) Segs [45.0-75.0 %] 73.1 % (04/19/2011 22:20:00) Lymphocytes [20.0-40.0 %] 19.9 % *LOW* (04/19/2011 22:20:00) Monocytes [2.0-12.0 %] 5.4 % (04/19/2011 22:20:00) Eosinophils [0.0-4.0 %] 0.9 % (04/19/2011 22:20:00) Basophils [0.0-1.0 %] 0.7 % (04/19/2011 22:20:00) Segs-Bands # [1.5-8.1 K/CMM] 6.3 K/CMM (04/19/2011 22:20:00) Lymphocytes # [1.0-5.5 K/CMM] 1.7 K/CMM (04/19/2011 22:20:00) Monocytes # [0.0-0.8 K/CMM] 0.5 K/CMM (04/19/2011 22:20:00) Eosinophils # [0.0-0.5 K/CMM] 0.1 K/CMM (04/19/2011 22:20:00) Basophils # [0.0-0.2 K/CMM] 0.1 K/CMM (04/19/2011 22:20:00)
--- OUTSIDE RECORDS SUMMARY | 2018-08-15 15:06 | XMS REPORT | CCD ---
:1965 Author Organization [facility] Team Providers Name Role Phone Penelope Villatoro Consulting Provider Allergies, Adverse Reactions, Alerts Substance Reaction Status NKDA1 Active 1Pt has no food allergy Problem List Condition Effective Dates Status Abdominal pain Active Cellulitis Active Chest pain Active Hyperglycemia Active UTI - Urinary tract infection Active Medications Medication Instructions Start Date End Date Status Pyridium 200 mg, 2 tab, Route: PO, 05/07/2011 05/07/2011 Completed Drug form: TAB, ONCE, Priority: STAT, Start date: 05/07/11 20:03:00, Stop date: 05/07/11 20:03:00 Cipro 500 mg, 2 tab, Route: PO, 05/07/2011 05/07/2011 Completed Drug form: TAB, ONCE, Priority: STAT, Start date: 05/07/11 20:03:00, Stop date: 05/07/11 20:03:00 Pyridium 200 mg oral 200 mg, 1 tab, PO, TID, 9 05/07/2011 05/10/2011 Ordered tablet tab, Substitution Allowed Cipro 500 mg oral tablet 500 mg, 1 tab, PO, Q12H, 28 05/07/2011 05/21/2011 Ordered tab, Substitution Allowed, TAB Vital Signs Most recent to oldest [Reference 1 2 Range]: Height 162.56 cm (05/07/2011 18:09:00) Temperature Oral [96.4-99.1 DegF] 98.5 DegF 98.6 DegF (05/07/2011 20:38:00) (05/07/2011 18:09:00) Systolic Blood Pressure [90-140 mmHg] 107 mmHg 127 mmHg (05/07/2011 20:38:00) (05/07/2011 18:09:00) Diastolic Blood Pressure [60-90 mmHg] 57 mmHg 70 mmHg *LOW* (05/07/2011 18:09:00) (05/07/2011 20:38:00) Respiratory Rate [14-20 BRMIN] 16 BRMIN 16 BRMIN (05/07/2011 20:38:00) (05/07/2011 18:09:00) Peripheral Pulse Rate [60-100 bpm] 57 bpm 83 bpm *LOW* (05/07/2011 18:09:00) (05/07/2011 20:38:00) Weight 50.000 kg (05/07/2011 18:09:00) Results URINALYSIS Most recent to oldest [Reference Range]: 1 UA Turbidity [Clear] Clear (05/07/2011 18:16:00) UA Color [Yellow] Yellow *NA* (05/07/2011 18:16:00) UA pH [5.0-8.0] 6.0 (05/07/2011 18:16:00) UA Spec Grav [<=1.030] 1.010 (05/07/2011 18:16:00) UA Glucose [Negative mg/dL] >=1000 mg/dL *ABN* (05/07/2011 18:16:00) UA Blood [Negative] Large *ABN* (05/07/2011 18:16:00) UA Ketones [Negative] Trace *ABN* (05/07/2011 18:16:00) UA Protein [Negative] Negative (05/07/2011 18:16:00) UA Urobilinogen [0.1-1.0 EU/dL] 0.2 EU/dL (05/07/2011 18:16:00) UA Bili [Negative] Negative *NA* (05/07/2011 18:16:00) UA Leuk Est [Negative] Negative (05/07/2011 18:16:00) UA Nitrite [Negative] Negative (05/07/2011 18:16:00) UA WBC [None Seen /HPF] 21-50 /HPF *ABN* (05/07/2011 18:16:00) UA RBC [0-2 /HPF] 6-10 /HPF *ABN* (05/07/2011 18:16:00) UA Bacteria [None Seen /HPF] Occasional /HPF (05/07/2011 18:16:00) UA Sq Epi [Few /LPF] Few /LPF (05/07/2011 18:16:00) Micro? Performed (05/07/2011 18:16:00)
--- OUTSIDE RECORDS SUMMARY | 2018-08-15 15:06 | XMS REPORT | CCD ---
:1965 Author Organization [facility] Team Providers Name Role Phone Tay Roche Consulting Provider Allergies, Adverse Reactions, Alerts Substance Reaction Status NKDA1 Active 1Pt has no food allergy Problem List Condition Effective Dates Status Abdominal pain Active Cellulitis Active Chest pain Active Hyperglycemia Active UTI - Urinary tract infection Active Medications Medication Instructions Start Date End Date Status morphine Sulfate 2 mg, 0.4 mL, Route: IVP, 05/22/2011 05/22/2011 Completed Drug form: INJ, ONCE, Priority: STAT, Start date: 05/22/11 23:04:00, Stop date: 05/22/11 23:04:00 ondansetron 4 mg, 2 mL, Route: IVP, 05/22/2011 05/22/2011 Completed Drug form: INJ, ONCE, Priority: STAT, Start date: 05/22/11 23:04:00, Stop date: 05/22/11 23:04:00 Sodium Chloride 0.9% 500 mL, Rate: 1,000 05/22/2011 05/22/2011 Completed (Bolus) IV 500 mL ml/hr, Infuse over: 0.5 hr, Route: IV, Total Volume: 500, Bolus dose, Priority: STAT, Start date: 05/22/11 23:04:00, Duration: 1 doses or times, Stop date: 05/22/11 23:33:00 Saline Flush 0.9% 5 ml, Route: IVP, Drug 05/22/2011 05/23/2011 Discontinued Form: INJ, PRN, PRN Line Flush, Start date: 05/22/11 23:04:00, Duration: 24 hr, Stop date: 05/23/11 23:03:00 Insulin regular 5 unit, 0.05 mL, Route: 05/22/2011 05/22/2011 Completed SUB-Q, Drug form: SOLN, ONCE, Priority: STAT, Start date: 05/22/11 23:36:00, Stop date: 05/22/11 23:36:00 morphine Sulfate 2 mg, Route: IVP, ONCE, 05/23/2011 05/23/2011 Completed Start date: 05/23/11 1:52:00, Stop date: 05/23/11 1:52:00 Insulin regular 5 unit, 0.05 mL, Route: 05/23/2011 05/23/2011 Completed IVP, Drug form: SOLN, ONCE, Priority: STAT, Start date: 05/23/11 1:10:00, Stop date: 05/23/11 1:10:00 Visipaque 32,000 mg, 100 mL, Route: 05/22/2011 05/22/2011 Ordered IV, Drug form: INJ, ONCE, Start date: 05/22/11 23:47:00, Stop date: 05/22/11 23:47:00 Vital Signs Most recent to oldest [Reference Range]: 1 Height 162.56 cm (05/22/2011 22:48:00) Weight 50.000 kg (05/22/2011 22:48:00) Results BEDSIDE GLUCOSE TESTING Most recent to oldest [Reference 1 2 Range]: Gluc POC Lif[place] [65-110 mg/dL] 273 mg/dL 1 >400 mg/dL 2 *HI* *CRIT* (05/23/2011 02:15:00) (05/23/2011 01:07:00) Comment1 Notify RN/MD *NA* (05/23/2011 01:07:00) 1Interpretive Data: Upper Reportable Limit: 200 mg/dL.2Interpretive Data: Upper Reportable Limit: 200 mg/dL.URINALYSIS Most recent to oldest [Reference Range]: 1 2 UA Turbidity [Clear] Clear (05/22/2011 23:10:00) UA Color [Yellow] Yellow *NA* (05/22/2011 23:10:00) UA pH [5.0-8.0] 5.0 (05/22/2011 23:10:00) UA Spec Grav [<=1.030] <=1.005 *NA* (05/22/2011 23:10:00) UA Glucose [Negative mg/dL] >=1000 mg/dL *ABN* (05/22/2011 23:10:00) UA Blood [Negative] Negative (05/22/2011 23:10:00) UA Ketones [Negative] Negative *NA* (05/22/2011 23:10:00) UA Protein [Negative] Negative (05/22/2011 23:10:00) UA Urobilinogen [0.1-1.0 EU/dL] 0.2 EU/dL (05/22/2011 23:10:00) UA Bili [Negative] Negative *NA* (05/22/2011 23:10:00) UA Leuk Est [Negative] Negative (05/22/2011 23:10:00) UA Nitrite [Negative] Negative (05/22/2011 23:10:00) UA WBC [None Seen /HPF] 3-5 /HPF (05/22/2011 23:10:00) UA RBC [0-2 /HPF] 0-2 /HPF (05/22/2011 23:10:00) UA Bacteria [None Seen /HPF] Occasional /HPF (05/22/2011 23:10:00) UA Sq Epi [Few /LPF] Rare /LPF (05/22/2011 23:10:00) Micro? Performed (05/22/2011 23:10:00) CHEMISTRY Most recent to oldest [Reference Range]: 1 2 Sodium Lvl [135-145 mEq/L] 131 mEq/L *LOW* (05/22/2011 23:10:00) Potassium Lvl [3.5-5.1 mEq/L] 3.9 mEq/L (05/22/2011 23:10:00) Chloride Lvl [95-109 mEq/L] 96 mEq/L (05/22/2011 23:10:00) CO2 [24-32 mEq/L] 26 mEq/L (05/22/2011 23:10:00) AGAP [10.0-20.0 mEq/L] 12.9 mEq/L (05/22/2011 23:10:00) Creatinine Lvl [0.5-1.4 mg/dL] 0.8 mg/dL (05/22/2011 23:10:00) BUN [7-22 mg/dL] 12 mg/dL (05/22/2011 23:10:00) B/C Ratio [6-25] 15 (05/22/2011 23:10:00) Glucose Lvl 544 mg/dL 3, 4 *CRIT* (05/22/2011 23:10:00) Total Protein [6.4-8.4 g/dL] 7.8 g/dL (05/22/2011 23:10:00) Albumin Lvl [3.5-5.0 g/dL] 4.0 g/dL (05/22/2011 23:10:00) Globulin [2.0-4.0 g/dL] 3.8 g/dL (05/22/2011 23:10:00) A/G Ratio [0.7-1.6] 1.1 (05/22/2011 23:10:00) Calcium Lvl [8.5-10.5 mg/dL] 8.6 mg/dL (05/22/2011 23:10:00) ALT [0-65 U/L] 15 U/L (05/22/2011 23:10:00) AST [0-37 U/L] 11 U/L (05/22/2011 23:10:00) Alk Phos [39-136 U/L] 113 U/L (05/22/2011 23:10:00) Bili Total [0.2-1.3 mg/dL] 0.4 mg/dL (05/22/2011 23:10:00) Amylase Lvl [25-115 U/L] 121 U/L *HI* (05/22/2011 23:10:00) Lipase Lvl [73-393 U/L] 198 U/L (05/22/2011 23:10:00) Ketone Quantitative [<=0.27 mmol/L] 0.36 mmol/L *HI* (05/22/2011 23:10:00) 3Result Comment: Critical Result(s) called to Emily at 05/22/2011 23:36 by tb. Read back OK.4Interpretive Data: Reference Ranges : 0 - 7 days : 41 - 90 mg /dL7 days - 150 yrs : 70 - 99 mg/dL (fasting), based on the clinical recommendations of the [place] [employer].HEMATOLOGY Most recent to oldest [Reference Range]: 1 2 WBC [3.7-10.4 K/CMM] 5.9 K/CMM (05/22/2011 23:10:00) RBC [4.20-5.40 M/CMM] 4.43 M/CMM (05/22/2011 23:10:00) Hgb [12.0-16.0 g/dL] 13.0 g/dL (05/22/2011 23:10:00) Hct [36.0-48.0 %] 38.1 % (05/22/2011 23:10:00) MCV [81.0-99.0 fL] 86.0 fL (05/22/2011 23:10:00) MCH [27.0-31.0 pg] 29.5 pg (05/22/2011:10:00) MCHC [32.0-36.0 g/dL] 34.3 g/dL (05/22/2011 23:10:00) RDW [11.5-14.5 %] 14.0 % (05/22/2011 23:10:00) Platelet [133-450 K/CMM] 271 K/CMM (05/22/2011 23:10:00) MPV [7.4-10.4 fL] 7.9 fL (05/22/2011 23:10:00) Segs [45.0-75.0 %] 63.3 % (05/22/2011 23:10:00) Lymphocytes [20.0-40.0 %] 28.9 % (05/22/2011 23:10:00) Monocytes [2.0-12.0 %] 4.7 % (05/22/2011 23:10:00) Eosinophils [0.0-4.0 %] 2.5 % (05/22/2011 23:10:00) Basophils [0.0-1.0 %] 0.6 % (05/22/2011 23:10:00) Segs-Bands # [1.5-8.1 K/CMM] 3.8 K/CMM (05/22/2011 23:10:00) Lymphocytes # [1.0-5.5 K/CMM] 1.7 K/CMM (05/22/2011 23:10:00) Monocytes # [0.0-0.8 K/CMM] 0.3 K/CMM (05/22/2011 23:10:00) Eosinophils # [0.0-0.5 K/CMM] 0.1 K/CMM (05/22/2011 23:10:00) Basophils # [0.0-0.2 K/CMM] 0.0 K/CMM (05/22/2011 23:10:00) Microbiology Reports PROCEDURE:Culture: Urine STATUS: Auth (Verified) BODY SITE: COLLECTED DATE/TIME: 05/22/2011 23:10:00 SOURCE: Urine, Clean Catch FREE TEXT SOURCE: FINAL REPORTS Final Report<10,000 CFU/mL Group B Streptococcus No susceptibility performed since these organisms are predictably susceptible to penicillin. If patient is penicillin allergic or susceptibility testing for additional antibiotics is clinically warranted please call the laboratory. . &lt ;10,000 CFU/mL Skin LaPRELIMINARY REPORTS Preliminary ReportNo Growth; Holding
--- OUTSIDE RECORDS SUMMARY | 2018-08-15 15:06 | XMS REPORT | CCD ---
:1965 Author Organization [facility] Team Providers Name Role Phone Mila Phelps Consulting Provider Allergies, Adverse Reactions, Alerts Substance Reaction Status NKDA1 Active 1Pt has no food allergy Problem List Condition Effective Dates Status Abdominal pain Active Cellulitis Active Chest pain Active Hyperglycemia Active UTI - Urinary tract infection Active Medications Medication Instructions Start Date End Date Status Saline Flush 0.9% 5 ml, Route: IVP, Drug 03/25/2011 03/26/2011 Discontinued Form: INJ, PRN, PRN Line Flush, Start date: 03/25/11 20:19:00, Duration: 30 day, Stop date: 04/24/11 20:18:00 ondansetron 4 mg, 2 mL, Route: IVP, 03/25/2011 03/25/2011 Completed Drug form: INJ, ONCE, Priority: STAT, Start date: 03/25/11 20:19:00, Stop date: 03/25/11 20:19:00 morphine Sulfate 4 mg, 0.8 mL, Route: 03/25/2011 03/25/2011 Completed IVP, Drug form: INJ, ONCE, Priority: STAT, Start date: 03/25/11 20:19:00, Stop date: 03/25/11 20:19:00 Insulin regular 10 unit, 0.1 mL, Route: 03/25/2011 03/25/2011 Completed IVP, Drug form: SOLN, ONCE, Priority: STAT, Start date: 03/25/11 21:16:00, Stop date: 03/25/11 21:16:00 Omnipaque 300 30,000 mg, 100 mL, 03/25/2011 03/25/2011 Ordered Route: IV, Drug form: SOLN, ONCE, Start date: 03/25/11 21:15:00, Stop date: 03/25/11 21:15:00 Sodium Chloride 0.9% 1,000 mL, Rate: 1,000 03/25/2011 03/25/2011 Completed (Bolus) IV 1,000 mL ml/hr, Infuse over: 1 hr, Route: IV, Total Volume: 1,000, Bolus Dose, Priority: STAT, Start date: 03/25/11 21:24:00, Duration: 1 doses or times, Stop date: 03/25/11 22:23:00 magnesium citrate 8.85% 150 ml, PO, ONCE, 300 03/25/2011 Ordered oral liquid ml, Substitution Allowed, Maintenance, LIQ MiraLax oral powder for 17 gm, PO, Daily, 255 03/25/2011 Ordered reconstitution gm, Substitution Allowed, PDR/REC Phenergan 25 mg oral 25 mg, 1 tab, PO, Q6H, 03/25/2011 Ordered tablet PRN, 15 tab, Nausea, Substitution Allowed Vicodin 5/500 oral tablet 1 tab, PO, Q4-6H, PRN, 03/25/2011 03/29/2011 Ordered 24 tab, for Pain, Substitution Allowed, Maintenance Vital Signs Most recent to oldest [Reference 1 2 Range]: Height 160.02 cm (03/25/2011 19:58:00) Temperature Oral [96.4-99.1 DegF] 98.0 DegF 99.0 DegF (03/26/2011 00:05:00) (03/25/2011 19:58:00) Systolic Blood Pressure [90-140 mmHg] 112 mmHg 115 mmHg (03/26/2011 00:05:00) (03/25/2011 19:58:00) Diastolic Blood Pressure [60-90 mmHg] 60 mmHg 67 mmHg (03/26/2011 00:05:00) (03/25/2011 19:58:00) Respiratory Rate [14-20 BRMIN] 18 BRMIN 16 BRMIN (03/26/2011 00:05:00) (03/25/2011 19:58:00) Peripheral Pulse Rate [60-100 bpm] 69 bpm 75 bpm (03/26/2011 00:05:00) (03/25/2011 19:58:00) Weight 53.636 kg (03/25/2011 19:58:00) Results BEDSIDE GLUCOSE TESTING Most recent to oldest [Reference Range]: 1 Gluc POC Lifscn [65-110 mg/dL] 203 mg/dL 1 *HI* (03/25/2011 23:47:00) Comment1 Notify RN/MD *NA* (03/25/2011 23:47:00) 1Interpretive Data: Upper Reportable Limit: 200 mg/dL.URINALYSIS Most recent to oldest [Reference Range]: 1 UA Turbidity [Clear] Clear (03/25/2011 20:00:00) UA Color [Yellow] Yellow *NA* (03/25/2011 20:00:00) UA pH [5.0-8.0] 6.0 (03/25/2011 20:00:00) UA Spec Grav [<=1.030] <=1.005 *NA* (03/25/2011 20:00:00) UA Glucose [Negative mg/dL] >=1000 mg/dL *ABN* (03/25/2011 20:00:00) UA Blood [Negative] Negative (03/25/2011 20:00:00) UA Ketones [Negative] Negative *NA* (03/25/2011 20:00:00) UA Protein [Negative] Negative (03/25/2011 20:00:00) UA Urobilinogen [0.1-1.0 EU/dL] 0.2 EU/dL (03/25/2011 20:00:00) UA Bili [Negative] Negative *NA* (03/25/2011 20:00:00) UA Leuk Est [Negative] Negative (03/25/2011 20:00:00) UA Nitrite [Negative] Negative (03/25/2011 20:00:00) UA WBC [None Seen /HPF] 0-2 /HPF (03/25/2011 20:00:00) UA RBC [0-2 /HPF] 0-2 /HPF (03/25/2011 20:00:00) UA Bacteria [None Seen /HPF] Occasional /HPF (03/25/2011 20:00:00) UA Sq Epi [Few /LPF] Rare /LPF (03/25/2011 20:00:00) UA [place] Yeast [None Seen /HPF] Occasional /HPF *ABN* (03/25/2011 20:00:00) Micro? Performed (03/25/2011 20:00:00) CHEMISTRY Most recent to oldest [Reference Range]: 1 Sodium Lvl [135-145 mEq/L] 132 mEq/L *LOW* (03/25/2011 20:45:00) Potassium Lvl [3.5-5.1 mEq/L] 4.0 mEq/L (03/25/2011 20:45:00) Chloride Lvl [95-109 mEq/L] 97 mEq/L (03/25/2011 20:45:00) CO2 [24-32 mEq/L] 25 mEq/L (03/25/2011:45:00) AGAP [10.0-20.0 mEq/L] 14.0 mEq/L (03/25/2011:45:00) Creatinine Lvl [0.5-1.4 mg/dL] 0.7 mg/dL (03/25/2011:45:00) BUN [7-22 mg/dL] 13 mg/dL (03/25/2011:45:00) B/C Ratio [6-25] 19 (03/25/2011:45:00) Glucose Lvl 410 mg/dL 2, 3 *CRIT* (03/25/2011:45:00) Total Protein [6.4-8.4 g/dL] 7.8 g/dL (03/25/2011:45:00) Albumin Lvl [3.5-5.0 g/dL] 3.9 g/dL (03/25/2011:45:00) Globulin [2.0-4.0 g/dL] 3.9 g/dL (03/25/2011:45:00) A/G Ratio [0.7-1.6] 1.0 (03/25/2011:45:00) Calcium Lvl [8.5-10.5 mg/dL] 9.2 mg/dL (03/25/2011:45:00) ALT [0-65 U/L] 14 U/L (03/25/2011:45:00) AST [0-37 U/L] <3 U/L (03/25/2011:45:00) Alk Phos [39-136 U/L] 69 U/L (03/25/2011:45:00) Bili Total [0.2-1.3 mg/dL] 0.5 mg/dL (03/25/2011 20:45:00) Lipase Lvl [73-393 U/L] 171 U/L (03/25/2011 20:45:00) 2Result Comment: Critical Result(s) called to Dr. Phelps at 03/25/2011 21:08 by tb. Read back OK.3Interpretive Data: Reference Ranges : 0 - 7 days : 41 - 90 mg/dL7 days - 150 yrs : 70 - 99 mg/dL (fasting), based on the clinical recommendations of the [place] [employer].HEMATOLOGY Most recent to oldest [Reference Range]: 1 WBC [3.7-10.4 K/CMM] 6.9 K/CMM (03/25/2011 20:45:00) RBC [4.20-5.40 M/CMM] 4.32 M/CMM (03/25/2011 20:45:00) Hgb [12.0-16.0 g/dL] 12.7 g/dL (03/25/2011 20:45:00) Hct [36.0-48.0 %] 36.9 % (03/25/2011 20:45:00) MCV [81.0-99.0 fL] 85.5 fL (03/25/2011 20:45:00) MCH [27.0-31.0 pg] 29.5 pg (03/25/2011 20:45:00) MCHC [32.0-36.0 g/dL] 34.5 g/dL (03/25/2011 20:45:00) RDW [11.5-14.5 %] 14.0 % (03/25/2011 20:45:00) Platelet [133-450 K/CMM] 278 K/CMM (03/25/2011 20:45:00) MPV [7.4-10.4 fL] 8.2 fL (03/25/2011 20:45:00) Segs [45.0-75.0 %] 66.3 % (03/25/2011 20:45:00) Lymphocytes [20.0-40.0 %] 27.2 % (03/25/2011 20:45:00) Monocytes [2.0-12.0 %] 4.8 % (03/25/2011 20:45:00) Eosinophils [0.0-4.0 %] 1.2 % (03/25/2011 20:45:00) Basophils [0.0-1.0 %] 0.5 % (03/25/2011 20:45:00) Segs-Bands # [1.5-8.1 K/CMM] 4.6 K/CMM (03/25/2011 20:45:00) Lymphocytes # [1.0-5.5 K/CMM] 1.9 K/CMM (03/25/2011 20:45:00) Monocytes # [0.0-0.8 K/CMM] 0.3 K/CMM (03/25/2011 20:45:00) Eosinophils # [0.0-0.5 K/CMM] 0.1 K/CMM (03/25/2011 20:45:00) Basophils # [0.0-0.2 K/CMM] 0.0 K/CMM (03/25/2011 20:45:00)
--- OUTSIDE RECORDS SUMMARY | 2018-08-15 15:07 | XMS REPORT | Summary of Care ---
:1965 Author Organization [facility] Address [address] [place] [address]- Encounter [employer] Raine(FIN) [phone] Date(s): 02/24/17 - 02/25/17 [facility] [address] [place] [address]- [place] [phone] Discharge Diagnosis: Cervical radiculopathy Discharge Disposition: Home or Self Care Attending Physician: Rudolph Astorga MD Vital Signs Most recent to oldest 1 2 3 [Reference Range]: Height 162.56 cm 167.64 cm (02/24/17 11:05 PM) (02/24/17 10:55 PM) Temperature Oral 98.2 DegF 97.8 DegF 97.8 DegF [96.4-99.1 DegF] (02/25/17 1:35 AM) (02/24/17 11:05 PM) (02/24/17 10:55 PM) Blood Pressure 114/63 mmHg 147/80 mmHg 145/80 mmHg [90-140/60-90 mmHg] (02/25/17 1:35 AM) *HI* *HI* (02/24/17 11:05 PM) (02/24/17 10:55 PM) Respiratory Rate [14-20 18 BRMIN 18 BRMIN 18 BRMIN BRMIN] (02/25/17 1:35 AM) (02/24/17 11:05 PM) (02/24/17 10:55 PM) Peripheral Pulse Rate 78 bpm 77 bpm 77 bpm [60-100 bpm] (02/25/17 1:35 AM) (02/24/17 11:05 PM) (02/24/17 10:55 PM) Weight 49.545 kg 49.659 kg (02/24/17 11:05 PM) (02/24/17 10:55 PM) Body Mass Index 18.75 m2 17.67 m2 (02/24/17 11:05 PM) (02/24/17 10:55 PM) Problem List Condition Effective Dates Status Health Status Informant Abdominal pain(Confirmed) Active Chest pain(Confirmed)(Stable) Active Diabetes mellitus(Confirmed) Active Hyperglycemia(Confirmed) Active UTI - Urinary tract Active infection(Confirmed) Restless leg syndrome(Confirmed) Active Allergies, Adverse Reactions, Alerts Substance Reaction Severity Status Ritalin Active NKDA1 Active 1Pt has no food allergy Medications Flexeril 5 mg oral tablet 5 mg=1 tab, PO, TID, X 7 day, # 21 tab, 0 Refill(s) Start Date: 02/25/17 Stop Date: 03/04/17 Status: Orderedibuprofen 800 mg oral tablet 800 mg=1 tab, PO, Q8H, PRN Pain, Take with food, X 5 day, # 15 tab, 0 Refill(s) Start Date: 02/25/17 Stop Date: 03/02/17 Status: OrderedketOROLAC 30 mg, 1 mL, Route: IM, Drug form: INJ, ONCE, Dosing Weight 49.545, kg, Priority : STAT, Start date: 02/24/17 23:48:00 [employer], Stop date: 02/24/17 23:48:00 [employer] Notes: (Same as:Toradol) IV bolus must be given >15 seconds. Give IM administration slowly and deeply into the muscle.Not for use > 4 days MEDICATION WASTE Product Size: 30 mgProduct Wasted: ___ mg Start Date: 02/24/17 Stop Date: 02/25/17 Status: CompletedTylenol with Codeine #3 oral tablet 1 - 2 tab, PO, Q4H, PRN Pain, X 3 day, # 20 tab, 0 Refill(s) Start Date: 02/25/17 Stop Date: 02/28/17 Status: OrderedValium 5 mg, 1 tab, Route: PO, Drug form: TAB, ONCE, Dosing Weight 49.545, kg, Priority : STAT, Start date: 02/24/17 23:48:00 STE[employer]ER, Stop date: 02/24/17 23:48:00 [employer]ER Notes: (Same as: Valium) Start Date: 02/24/17 Stop Date: 02/25/17 Status: Completed Results No data available for this section Immunizations No data available for this section Procedures Procedure Date Related Diagnosis Body Site Appendectomy Cholecystectomy Partial hysterectomy Social History Social History Type Response Substance Abuse Use: None. Sexual Sexually active: Yes. Exercise Exercise type: Walking. Employment/School Status: Retired. Alcohol Never Smoking Status Never smoker; Ready to change: No; Concerns about tobacco use in household: No; Exposure to Tobacco Smoke None; Lives with someone who smokes; Cigarette Smoking Last 365 Days No; Reg Smoking Cessation Counseling No Assessment and Plan No data available for this section
--- OUTSIDE RECORDS SUMMARY | 2018-08-15 15:07 | XMS REPORT | CCD ---
:1965 Author Organization [facility] Care Team Providers Name Role Phone Lorie Isaacs Referring Provider Allergies, Adverse Reactions, Alerts Substance Reaction Status NKDA1 Active 1Pt has no food allergy Problem List Condition Effective Dates Status Abdominal pain Active Cellulitis Active Chest pain Active Hyperglycemia Active UTI - Urinary tract infection Active
--- OUTSIDE RECORDS SUMMARY | 2018-08-15 15:07 | XMS REPORT | CCD ---
:1965 Author Organization [facility] Team Providers Name Role Phone Tay Roche Consulting Provider Allergies, Adverse Reactions, Alerts Substance Reaction Status NKDA1 Active 1Pt has no food allergy Problem List Condition Effective Dates Status Abdominal pain Active Cellulitis Active Chest pain Active Hyperglycemia Active UTI - Urinary tract infection Active Medications Medication Instructions Start Date End Date Status Sodium Chloride 0.9% 500 mL, Rate: 500 ml/hr, 11/28/2011 11/28/2011 Completed (Bolus) IV 500 mL Infuse over: 1 hr, Route: IV, Dosing Weight 50 kg, Total Volume: 500, Bolus Dose, Priority: STAT, Start date: 11/28/11 22:47:00, Duration: 1 doses or times, Stop date: 11/28/11 23:46:00 Insulin regular 7 unit, Route: IVP, ONCE, 11/28/2011 11/28/2011 Completed Dosing Weight 50, kg, Priority: STAT, Start date: 11/28/11 21:51:00, Stop date: 11/28/11 21:51:00 ketorolac 30 mg, Route: IVP, Drug 11/28/2011 11/28/2011 Completed form: INJ, ONCE, Dosing Weight 50, kg, Priority: STAT, Start date: 11/28/11 21:51:00, Stop date: 11/28/11 21:51:00 ondansetron 4 mg, Route: IVP, ONCE, 11/28/2011 11/28/2011 Completed Dosing Weight 50, kg, Priority: STAT, Start date: 11/28/11 21:51:00, Stop date: 11/28/11 21:51:00 Sodium Chloride 0.9% 1,000 mL, Rate: 1,000 11/28/2011 11/28/2011 Completed (Bolus) IV 1,000 mL ml/hr, Infuse over: 1 hr, Route: IVPB, kg, Total Volume: 1,000, Bolus Dose, Priority: STAT, Start date: 11/28/11 21:51:00, Duration: 1 doses or times, Stop date: 11/28/11 22:50:00 Saline Flush 0.9% 5 ml, Route: IVP, Drug 11/28/2011 11/29/2011 Discontinued Form: INJ, kg, PRN, PRN Line Flush, Start date: 11/28/11 21:51:00, Duration: 30 day, Stop date: 12/28/11 21:50:00 NovoLog Substitution Allowed 11/28/2011 Ordered Vital Signs Most recent to oldest [Reference Range]: 1 Height 162.56 cm (11/28/2011 21:35:00) Weight 50.000 kg (11/28/2011 21:35:00) Results BEDSIDE GLUCOSE TESTING Most recent to oldest [Reference 1 2 Range]: Gluc POC Lifscn [70-99 mg/dL] 233 mg/dL 1 >400 mg/dL 2 *HI* *CRIT* (11/28/2011 23:18:00) (11/28/2011 21:45:00) Comment1 Notify RN/MD Notify RN/MD *NA* *NA* (11/28/2011 23:18:00) (11/28/2011 21:45:00) 1Interpretive Data: Upper Reportable Limit: 200 mg/dL.2Interpretive Data: Upper Reportable Limit: 200 mg/dL.URINALYSIS Most recent to oldest [Reference Range]: 1 2 UA Turbidity [Clear] Clear (11/28/2011 22:05:00) UA Color [Yellow] Yellow *NA* (11/28/2011 22:05:00) UA pH [5.0-8.0] 5.5 (11/28/2011 22:05:00) UA Spec Grav [<=1.030] 1.010 (11/28/2011 22:05:00) UA Glucose [Negative mg/dL] >=1000 mg/dL *ABN* (11/28/2011 22:05:00) UA Blood [Negative] Negative (11/28/2011 22:05:00) UA Ketones [Negative mg/dL] Negative mg/dL *NA* (11/28/2011 22:05:00) UA Protein [Negative mg/dL] Negative mg/dL (11/28/2011 22:05:00) UA Urobilinogen [0.1-1.0 EU/dL] 0.2 EU/dL (11/28/2011 22:05:00) UA Bili [Negative] Negative *NA* (11/28/2011 22:05:00) UA Leuk Est [Negative] Negative (11/28/2011 22:05:00) UA Nitrite [Negative] Negative (11/28/2011 22:05:00) UA WBC [None Seen /HPF] 0-2 /HPF (11/28/2011 22:05:00) UA RBC [0-2 /HPF] 0-2 /HPF (11/28/2011 22:05:00) UA Bacteria [None Seen /HPF] Occasional /HPF (11/28/2011 22:05:00) UA Sq Epi [Few /LPF] Rare /LPF (11/28/2011 22:05:00) Micro? Performed (11/28/2011 22:05:00) CHEMISTRY Most recent to oldest [Reference Range]: 1 2 Sodium Lvl [135-145 mEq/L] 134 mEq/L *LOW* (11/28/2011 22:05:00) Potassium Lvl [3.5-5.1 mEq/L] 4.2 mEq/L (11/28/2011 22:05:00) Chloride Lvl [95-109 mEq/L] 98 mEq/L (11/28/2011 22:05:00) CO2 [24-32 mEq/L] 27 mEq/L (11/28/2011 22:05:00) AGAP [10.0-20.0 mEq/L] 13.2 mEq/L (11/28/2011 22:05:00) Creatinine Lvl [0.5-1.4 mg/dL] 0.7 mg/dL (11/28/2011 22:05:00) BUN [7-22 mg/dL] 11 mg/dL (11/28/2011 22:05:00) B/C Ratio [6-25] 16 (11/28/2011 22:05:00) Glucose Lvl [70-99 mg/dL] 476 mg/dL 3, 4 *CRIT* (11/28/2011 22:05:00) Total Protein [6.4-8.4 g/dL] 7.6 g/dL (11/28/2011 22:05:00) Albumin Lvl [3.5-5.0 g/dL] 3.8 g/dL (11/28/2011 22:05:00) Globulin [2.0-4.0 g/dL] 3.8 g/dL (11/28/2011 22:05:00) A/G Ratio [0.7-1.6] 1.0 (11/28/2011 22:05:00) Calcium Lvl [8.5-10.5 mg/dL] 8.8 mg/dL (11/28/2011 22:05:00) ALT [0-65 unit/L] 13 unit/L (11/28/2011 22:05:00) AST [0-37 unit/L] 8 unit/L (11/28/2011 22:05:00) Alk Phos [39-136 unit/L] 116 unit/L (11/28/2011 22:05:00) Bili Total [0.2-1.3 mg/dL] 0.2 mg/dL (11/28/2011 22:05:00) Ketone Quantitative [<=0.27 mmol/L] 0.14 mmol/L (11/28/2011 22:05:00) 3Result Comment: Critical Result(s) called to Carisa at 11/28/2011 22:38:17 CDT by [facility] [place]. Read back OK.4Interpretive Data: Adult reference range values reflect the clinical guidelines of the [place] [employer].HEMATOLOGY Most recent to oldest [Reference Range]: 1 2 WBC [3.7-10.4 K/CMM] 5.7 K/CMM (11/28/2011 22:05:00) RBC [4.20-5.40 M/CMM] 4.41 M/CMM (11/28/2011 22:05:00) Hgb [12.0-16.0 g/dL] 12.9 g/dL (11/28/2011 22:05:00) Hct [36.0-48.0 %] 38.9 % (11/28/2011 22:05:00) MCV [81.0-99.0 fL] 88.4 fL (11/28/2011 22:05:00) MCH [27.0-31.0 pg] 29.3 pg (11/28/2011 22:05:00) MCHC [32.0-36.0 g/dL] 33.2 g/dL (11/28/2011 22:05:00) RDW [11.5-14.5 %] 13.8 % (11/28/2011 22:05:00) Platelet [133-450 K/CMM] 311 K/CMM (11/28/2011 22:05:00) MPV [7.4-10.4 fL] 7.5 fL (11/28/2011 22:05:00) Segs [45.0-75.0 %] 57.5 % (11/28/2011 22:05:00) Lymphocytes [20.0-40.0 %] 35.2 % (11/28/2011 22:05:00) Monocytes [2.0-12.0 %] 5.3 % (11/28/2011 22:05:00) Eosinophils [0.0-4.0 %] 1.5 % (11/28/2011 22:05:00) Basophils [0.0-1.0 %] 0.5 % (11/28/2011 22:05:00) Segs-Bands # [1.5-8.1 K/CMM] 3.3 K/CMM (11/28/2011 22:05:00) Lymphocytes # [1.0-5.5 K/CMM] 2.0 K/CMM (11/28/2011 22:05:00) Monocytes # [0.0-0.8 K/CMM] 0.3 K/CMM (11/28/2011 22:05:00) Eosinophils # [0.0-0.5 K/CMM] 0.1 K/CMM (11/28/2011 22:05:00) Basophils # [0.0-0.2 K/CMM] 0.0 K/CMM (11/28/2011 22:05:00)
--- OUTSIDE RECORDS SUMMARY | 2018-08-15 15:07 | XMS REPORT | Summary of Care ---
:1965 Author Organization [facility] Address [address] [place] [address]- Encounter [employer] Raine(GIL) [id number] Date(s): 12/26/16 - 12/27/16 [facility] [address] [place] [phone] Discharge Diagnosis: Closed fracture of fourth toe of right foot Discharge Disposition: Home or Self Care Attending Physician: Moise Davis MD Vital Signs Most recent to oldest [Reference Range]: 1 2 Height 162.56 cm (12/26/16 11:22 PM) Temperature Oral [96.4-99.1 DegF] 98.3 DegF 98.4 DegF (12/27/16 1:03 AM) (12/26/16 11:22 PM) Blood Pressure [90-140/60-90 mmHg] 121/81 mmHg 126/81 mmHg (12/27/16 1:03 AM) (12/26/16 11:22 PM) Respiratory Rate [14-20 BRMIN] 16 BRMIN 18 BRMIN (12/27/16 1:03 AM) (12/26/16 11:22 PM) Peripheral Pulse Rate [60-100 bpm] 82 bpm 89 bpm (12/27/16 1:03 AM) (12/26/16 11:22 PM) Weight 50 kg (12/26/16 11:22 PM) Body Mass Index 18.92 m2 (12/26/16 11:22 PM) Problem List Condition Effective Dates Status Health Status Informant Diabetes mellitus(Confirmed) Active Restless leg syndrome(Confirmed) Active Allergies, Adverse Reactions, Alerts Substance Reaction Severity Status Ritalin Active Medications Guthrie 5/325 oral tablet 1 tab, Route: PO, Drug Form: TAB, Dosing Weight 50, kg, ONCE, STAT, Start date: 09/14/17 23:47:00 CDT, Stop date: 12/26/16 23:47:00 CDT Notes: (Same as: Guthrie 325/5) Do not exceed 4gm/day of acetaminophen. Start Date: 12/26/16 Stop Date: 12/26/16 Status: CompletedTylenol with Codeine #3 oral tablet 1 - 2 tab, PO, Q4H, PRN Pain, X 2 day, # 30 tab, 0 Refill(s) Start Date: 12/27/16 Stop Date: 12/29/16 Status: Completed Results No data available for this section Immunizations No data available for this section Procedures No data available for this section Social History Social History Type Response Smoking Status Never smoker; Ready to change: No; Concerns about tobacco use in household: No; Exposure to Tobacco Smoke None; Cigarette Smoking Last 365 Days No; Reg Smoking Cessation Counseling No Assessment and Plan No data available for this section
--- OUTSIDE RECORDS SUMMARY | 2018-08-15 15:07 | XMS REPORT | CCD ---
:1965 Author Organization [facility] Care Team Providers Name Role Phone Lorie Isaacs Consulting Provider Allergies, Adverse Reactions, Alerts Substance Reaction Status NKDA1 Active 1Pt has no food allergy Problem List Condition Effective Dates Status Abdominal pain Active Cellulitis Active Chest pain Active Hyperglycemia Active UTI - Urinary tract infection Active Vital Signs Most recent to oldest [Reference Range]: 1 Height 162.56 cm (02/06/2012 10:19:00) Weight 47.273 kg (02/06/2012 10:19:00) Results BEDSIDE GLUCOSE TESTING Most recent to oldest [Reference Range]: 1 Gluc POC Lifscn [70-99 mg/dL] 293 mg/dL 1 *HI* (02/06/2012 10:13:00) Comment1 Notify RN/MD *NA* (02/06/2012 10:13:00) 1Interpretive Data: Upper Reportable Limit: 200 mg/dL.
--- OUTSIDE RECORDS SUMMARY | 2018-08-15 15:07 | XMS REPORT | Summary of Care ---
:1965 Author Organization [facility] Address [address] [place] [address]- Encounter HQ Kera_alex(FIN) [id number] Date(s): 01/24/17 - 01/26/17 [facility] [address] [place] [address] [phone] Discharge Disposition: Home or Self Care Attending Physician: Greg Garza MD Admitting Physician: Greg Garza MD Vital Signs Most recent to oldest 1 2 3 [Reference Range]: Height 157.48 cm 162.56 cm (01/25/17 12:58 AM) (01/24/17 9:01 PM) Temperature Oral [96.4-99.1 98.5 DegF 98.4 DegF 98.1 DegF DegF] (01/26/17 11:47 AM) (01/26/17 7:26 AM) (01/26/17 4:50 AM) Blood Pressure 116/69 mmHg 129/80 mmHg 120/69 mmHg [90-140/60-90 mmHg] (01/26/17 11:47 AM) (01/26/17 7:26 AM) (01/26/17 4:50 AM ) Respiratory Rate [14-20 20 BRMIN 18 BRMIN 20 BRMIN BRMIN] (01/26/17 11:47 AM) (01/26/17 7:26 AM) (01/26/17 4:50 AM) Peripheral Pulse Rate 87 bpm 79 bpm 78 bpm [60-100 bpm] (01/26/17 11:47 AM) (01/26/17 7:26 AM) (01/26/17 4:50 AM) Weight 51.449 kg 52.273 kg (01/25/17 12:58 AM) (01/24/17 9:01 PM) Body Mass Index 20.75 m2 19.78 m2 (01/25/17 12:58 AM) (01/24/17 9:01 PM) Problem List Condition Effective Dates Status Health Status Informant Diabetes mellitus(Confirmed) Active Restless leg syndrome(Confirmed) Active Allergies, Adverse Reactions, Alerts Substance Reaction Severity Status Ritalin Active Medications acetaminophen 650 mg, 2 tab, Route: PO, Drug form: TAB, Q4H, Dosing Weight 51.449, kg, PRN Pain 1-3/Temp > 100.4 F, Start date: 01/25/17 1:32:00 CDT, Duration: 30 day, Stop date: 02/24/17 1:31:00 MUSCULOSKELETAL PHYSICIAN Notes: Do not exceed 4 gm/day. (Same as: Tylenol) Start Date: 01/25/17 Stop Date: 01/26/17 Status: Discontinuedacetaminophen-hydrocodone 325 mg-5 mg oral tablet 1 tab, Route: PO, Drug Form: TAB, Dosing Weight 51.449, kg, Q4H, PRN Pain Score 4-6, Start date: 01/25/17 1:32:00 CDT, Duration: 30 day, Stop date: 02/24/17 1: 31:00 MUSCULOSKELETAL PHYSICIAN Notes: (Same as: [place] 325/5) Do not exceed 4gm/day of acetaminophen. Start Date: 01/25/17 Stop Date: 01/25/17 Status: Discontinuedcalcium carbonate 500 mg, 1 tab, Route: PO, Drug form: CHEWTAB, TID, Dosing Weight 51.449, kg, Start date: 01/26/17 9:00:00 CDT, Duration: 30 day, Stop date: 02/24/17 17:00: 00 MUSCULOSKELETAL PHYSICIAN Notes: (Same As: Tums)Calcium Carbonate 500 td=805 mg elemental calcium Dose=_ mg calcium carbonate ( mg elemental calcium) Start Date: 01/26/17 Stop Date: 01/26/17 Status: Discontinuedcalcium carbonate 750 mg, 1.5 tab, Route: CHEW, Drug form: CHEWTAB, ONCE, Dosing Weight 51.449, kg , Priority: NOW, Start date: 01/25/17 17:40:00 CDT, Stop date: 01/25/17 17:40: 00 CDT Notes: (Same As: Tums)Calcium Carbonate 500 ca=079 mg elemental calcium Dose=_ mg calcium carbonate ( mg elemental calcium) Start Date: 01/25/17 Stop Date: 01/25/17 Status: Completedcalcium carbonate 500 mg (200 mg elemental calcium) oral tablet 500 mg=1 tab, PO, TID, # 6 tab, 0 Refill(s), Pharmacy: [facility]/pharmacy #[id number] Start Date: 01/26/17 Stop Date: 01/28/17 Status: Orderedcalcium gluconate + sodium chloride 0.9% INJ 50 mL 500 mg, 5 mL, Route: IVPB, ONCE, Dosing Weight 51.449, kg, Start date: 01/26/17 9:47:00 CDT, Stop date: 01/26/17 9:47:00 CDT Notes: WASTE: F/P - Sink; E - Municipal Trash Bin Start Date: 01/26/17 Stop Date: 01/26/17 Status: CompletedcefTRIAXone + sodium chloride 0.9% INJ 100 mL 1 gm, Route: IVPB, [id number], Dosing Weight 51.449, kg, Start date: 01/25/17 2:00: 00 CDT, Duration: 3 day, Stop date: 01/27/17 2:00:00 CDT, ABX Indication: Urinary Tract Infection Notes: (Same As: Rocephin).Use with 100 mL NS and infuse over 30 min MEDICATION WASTE Product Size: 1000 mgProduct Wasted: ___ mg Start Date: 01/25/17 Stop Date: 01/26/17 Status: DiscontinuedCipro 500 mg oral tablet 500 mg=1 tab, PO, Q12H, for UTI, X 3 day, # 6 tab, 0 Refill(s), Pharmacy: [facility]/ pharmacy #[id number] Start Date: 01/26/17 Stop Date: 01/29/17 Status: OrderedDextrose 50% Syringe 25 gm, 50 mL, Route: IVP, Drug Form: INJ, Dosing Weight 51.449, kg, PRN, PRN Blood Glucose Results, Start date: 01/25/17 1:35:00 CDT, Duration: 30 day, Stop date: 02/24/17 0:34:00 MUSCULOSKELETAL PHYSICIAN Start Date: 01/25/17 Stop Date: 01/26/17 Status: DiscontinuedDextrose 50% Syringe 12.5 gm, 25 mL, Route: IVP, Drug Form: INJ, Dosing Weight 51.449, kg, PRN, PRN Blood Glucose Results, Start date: 01/25/17 1:35:00 CDT, Duration: 30 day, Stop date: 02/24/17 0:34:00 MUSCULOSKELETAL PHYSICIAN Start Date: 01/25/17 Stop Date: 01/26/17 Status: Discontinueddocusate 100 mg, 1 cap, Route: PO, Drug form: CAP, BID, Dosing Weight 51.449, kg, Start date: 01/25/17 9:00:00 CDT, Duration: 30 day, Stop date: 02/23/17 17:00:00 MUSCULOSKELETAL PHYSICIAN Notes: (Same as: Colace) (Do Not Crush) Start Date: 01/25/17 Stop Date: 01/26/17 Status: Discontinuedfamotidine 20 mg, Route: IVP, ONCE, Dosing Weight 52.273, kg, Priority: STAT, Start date: 01/25/17 0:00:00 CDT,Stop date: 01/25/17 0:00:00 CDT Start Date: 01/25/17 Stop Date: 01/25/17 Status: Completedglucagon 1 mg, Route: IM, Drug form: PDR/INJ, PRN, Dosing Weight 51.449, kg, PRN Blood Glucose Results, Startdate: 01/25/17 1:35:00 CDT, Duration: 30 day, Stop date: 02/24/17 0:34:00 MUSCULOSKELETAL PHYSICIAN Start Date: 01/25/17 Stop Date: 01/26/17 Status: DiscontinuedHumalog 100 units/mL 4 unit, SUB-Q, TID-Before Meals, hold insulin injection if your blood sugar is less than 140 mg/dL.,# 10 mL, 0 Refill(s), Pharmacy: [facility]/pharmacy #[id number] Start Date: 01/26/17 Status: OrderedhydrALAZINE 10 mg, 0.5 mL, Route: IVP, Drug form: INJ, Q4H, Dosing Weight 51.449, kg, PRN Hypertension, Start date: 01/25/17 1:35:00 CDT, Duration: 30 day, Stop date: 1:34:00 MUSCULOSKELETAL PHYSICIAN Notes: (Same as: Apresoline)Push over 5 minutes Start Date: 01/25/17 Stop Date: 01/26/17 Status: Discontinuedinsulin lispro 5 unit, 0.05 mL, Route: SUB-Q, Drug form: SOLN, TID-Before Meals, Dosing Weight 51.449, kg, PRN Blood Glucose Results, Start date: 01/25/17 1:35:00 CDT, Duration: 30 day, Stop date: 02/24/17 1:34:00 MUSCULOSKELETAL PHYSICIAN Notes: (Same as: Humalog ) Roll in palms of hands gently; Do not shake ` vigorously. "Single PatientUse Only " (Restricted to patients requiring a dose > 60 units)WASTE: F/P - Black; E - Municipal Trash Bin Stable for 28 days at room temperature.Expires in days from Date Start Date: 01/25/17 Stop Date: 01/26/17 Status: Discontinuedinsulin lispro 3 unit, 0.03 mL, Route: SUB-Q, Drug form: SOLN, TID-Before Meals, Dosing Weight 51.449, kg, PRN Blood Glucose Results, Start date: 01/25/17 1:35:00 CDT, Duration: 30 day, Stop date: 02/24/17 1:34:00 MUSCULOSKELETAL PHYSICIAN Notes: (Same as: Humalog ) Roll in palms of hands gently; Do not shake ` vigorously. "Single PatientUse Only " (Restricted to patients requiring a dose > 60 units)WASTE: F/P - Black; E - Municipal Trash Bin Stable for 28 days at room temperature.Expires in days from Date Start Date: 01/25/17 Stop Date: 01/26/17 Status: Discontinuedinsulin lispro 2 unit, 0.02 mL, Route: SUB-Q, Drug form: SOLN, TID-Before Meals, Dosing Weight 51.449, kg, PRN Blood Glucose Results, Start date: 01/25/17 1:35:00 CDT, Duration: 30 day, Stop date: 02/24/17 1:34:00 MUSCULOSKELETAL PHYSICIAN Notes: (Same as: Humalog ) Roll in palms of hands gently; Do not shake ` vigorously. "Single PatientUse Only " (Restricted to patients requiring a dose > 60 units)WASTE: F/P - Black; E - Municipal Trash Bin Stable for 28 days at room temperature.Expires in days from Date Start Date: 01/25/17 Stop Date: 01/26/17 Status: Discontinuedinsulin lispro 1 unit, 0.01 mL, Route: SUB-Q, Drug form: SOLN, TID-Before Meals, Dosing Weight 51.449, kg, PRN Blood Glucose Results, Start date: 01/25/17 1:35:00 CDT, Duration: 30 day, Stop date: 02/24/17 1:34:00 MUSCULOSKELETAL PHYSICIAN Notes: (Same as: Humalog ) Roll in palms of hands gently; Do not shake ` vigorously. "Single PatientUse Only " (Restricted to patients requiring a dose > 60 units)WASTE: F/P - Black; E - Municipal Trash Bin Stable for 28 days at room temperature.Expires in days from Date Start Date: 01/25/17 Stop Date: 01/26/17 Status: Discontinuedinsulin lispro 4 unit, 0.04 mL, Route: SUB-Q, Drug form: SOLN, TID-Before Meals, Dosing Weight 51.449, kg, PRN Blood Glucose Results, Start date: 01/25/17 1:35:00 CDT, Duration: 30 day, Stop date: 02/24/17 1:34:00 MUSCULOSKELETAL PHYSICIAN Notes: (Same as: Humalog ) Roll in palms of hands gently; Do not shake ` vigorously. "Single PatientUse Only " (Restricted to patients requiring a dose > 60 units)WASTE: F/P - Black; E - Municipal Trash Bin Stable for 28 days at room temperature.Expires in days from Date Start Date: 01/25/17 Stop Date: 01/26/17 Status: Discontinuedinsulin lispro 10 unit, 0.1 mL, Route: SUB-Q, Drug form: SOLN, ONCE, Dosing Weight 51.449, kg, Start date: 174:50:00 CDT, Stop date: 01/25/17 4:50:00 CDT Notes: (Same as: Humalog ) Roll in palms of hands gently; Do not shake ` vigorously. "Single PatientUse Only " (Restricted to patients requiring a dose > 60 units)WASTE: F/P - Black; E - Municipal Trash Bin Stable for 28 days at room temperature.Expires in days from Date Start Date: 01/25/17 Stop Date: 01/25/17 Status: CompletedketOROLAC 15 mg, Route: IV, ONCE, Dosing Weight 52.273, kg, Start date: 01/25/17 0:00:00 CDT, Stop date: 01/25/17 0:00:00 CDT Start Date: 01/25/17 Stop Date: 01/25/17 Status: CompletedketOROLAC 15 mg, 0.5 mL, Route: IVP, Drug form: INJ, Q6H, Dosing Weight 51.449, kg, PRN Pain Score 4-6, Start date: 01/25/17 12:02:00 CDT, Duration: 4 day, Stop date: 01/29/17 12:01:00 CDT Notes: (Same as:Toradol) IV bolus must be given >15 seconds. Give IM administration slowly and deeply into the muscle.Not for use > 4 days MEDICATION WASTE Product Size: 30 mgProduct Wasted: ___ mg Start Date: 01/25/17 Stop Date: 01/26/17 Status: DiscontinuedLantus 100 units/mL 50 units, SUB-Q, Daily, 0 Refill(s) Start Date: 01/25/17 Stop Date: 01/26/17 Status: DiscontinuedLantus 100 units/mL 10 unit, 0.1 mL, Route: SUB-Q, Drug form: INJ, Bedtime, Dosing Weight 51.449, kg , Start date: 01/25/17 21:00:00 CDT, Duration: 30 day, Stop date: 02/23/17 21:00 :00 MUSCULOSKELETAL PHYSICIAN Notes: Same as Aman Fonseca not hold insulin without contacting prescriber"single patient use only"WASTE: F/P - Black; E - Municipal Trash Bin Stable for 28 days at room temperature.Expires in days from Date Start Date: 01/25/17 Stop Date: 01/26/17 Status: DiscontinuedLantus 100 units/mL 15 unit, SUB-Q, Daily, # 10 mL, 0 Refill(s), Pharmacy: [facility]/pharmacy #[id number] Start Date: 01/26/17 Status: OrderedLyrica 75 mg, 1 cap, Route: PO, Drug form: CAP, Bedtime, Dosing Weight 51.449, kg, Start date: 01/25/17 21:00:00 CDT, Duration: 30 day, Stop date: 02/23/17 21:00: 00 MUSCULOSKELETAL PHYSICIAN Notes: (Same as: Lyrica) Start Date: 01/25/17 Stop Date: 01/26/17 Status: DiscontinuedLyrica 75 mg oral capsule 75 mg=1 cap, PO, Bedtime, 0 Refill(s) Start Date: 01/25/17 Status: Orderedmagnesium oxide 400 mg, 1 tab, Route: PO, Drug form: TAB, TID, Dosing Weight 51.449, kg, Start date: 01/25/17 17:00:00 CDT, Duration: 30 day, Stop date: 02/24/17 13:00:00 MUSCULOSKELETAL PHYSICIAN Notes: (Same as: Mag-Ox 400)Magnesium oxide 071ig=105hm elemental magnesiumDose= ____mg magnesium oxide (___mg elemental magnesium) Start Date: 01/25/17 Stop Date: 01/26/17 Status: Discontinuedmorphine Sulfate 4 mg, 1 mL, Route: IVP, Drug form: SOLN, ONCE, Dosing Weight 52.273, kg, Priority: STAT, Start date:01/24/17 21:12:00 CDT, Stop date: 01/24/17 21:12:00 CDT Notes: (Same as:MORPhine Sulfate) Start Date: 01/24/17 Stop Date: 01/24/17 Status: Completedondansetron 4 mg, 2 mL, Route: IVP, Drug form: INJ, Q6H, Dosing Weight 51.449, kg, PRN Nausea & Vomiting, Start date: 01/25/17 1:32:00 CDT, Duration: 30 day, Stop date: 02/24/17 1:31:00 MUSCULOSKELETAL PHYSICIAN Notes: (Same as: Zofran) MEDICATION WASTE Product Size: 4 mgProduct Wasted: ___ mg Start Date: 01/25/17 Stop Date: 01/26/17 Status: DiscontinuedProtonix 40 mg, 1 tab, Route: PO, Drug form: ECTAB, BID, Dosing Weight 51.449, kg, Start date: 01/25/17 17:00:00 CDT, Duration: 30 day, Stop date: 02/24/17 9:00:00 MUSCULOSKELETAL PHYSICIAN Notes: Tablet should not be chewed or crushed.(Same as: Protonix) Start Date: 01/25/17 Stop Date: 01/26/17 Status: DiscontinuedProtonix 40 mg oral enteric coated tablet 40 mg=1 tab, PO, Daily, # 30 tab, 0 Refill(s), Pharmacy: [facility]/pharmacy #[id number] Start Date: 01/26/17 Status: OrderedRequip 2 mg, 2 tab, Route: PO, Drug form: TAB, Bedtime, Dosing Weight 51.449, kg, Start date: 01/25/17 21:00:00 CDT, Duration: 30 day, Stop date: 02/23/17 21:00: 00 MUSCULOSKELETAL PHYSICIAN Notes: (Same as: Requip) Start Date: 01/25/17 Stop Date: 01/26/17 Status: DiscontinuedRequip 2 mg oral tablet 2 mg=1 tab, PO, Bedtime, 0 Refill(s) Start Date: 01/25/17 Status: OrderedSaline Flush 0.9% 10 ml, Route: IVP, Drug Form: INJ, Dosing Weight 51.449, kg, PRN, PRN Line Flush , Start date: 01/25/17 1:32:00 CDT, Duration: 30 day, Stop date: 02/24/17 0:31: 00 MUSCULOSKELETAL PHYSICIAN Notes: (Same as: BD Posiflush) Start Date: 01/25/17 Stop Date: 01/26/17 Status: DiscontinuedSodium Chloride 0.9% (Bolus) IV 3,000 mL, 3000 ml/hr, Infuse Over: 1 hr, Route: IV, 3,000, Drug form: INJ, ONCE , Priority: STAT, Dosing Weight 52.273 kg, Start date: 01/24/17 22:15:00 CDT, Duration: 1 doses or times, Stop date: 01/24/17 22:15:00 CDT Start Date: 01/24/17 Stop Date: 01/24/17 Status: CompletedSodium Chloride 0.9% (Bolus) IV 500 mL, 500 ml/hr, Infuse Over: 1 hr, Route: IV, 500, Drug form: INJ, ONCE, Priority: STAT, Dosing Weight 52.273 kg, Start date: 01/24/17 22:09:00 CDT, Duration: 1 doses or times, Stop date: 01/24/17 22:09:00 CDT Start Date: 01/24/17 Stop Date: 01/24/17 Status: Discontinuedsodium chloride 0.9% 1000 ml INJ 1,000 mL 1,000 mL, Rate: 75 ml/hr, Infuse over: 13.3 hr, Route: IV, Dosing Weight 51.449 kg, Total Volume: 1,000, Start date: 01/25/17 1:32:00 CDT, Stop date: 02/24/17 1 :31:00 MUSCULOSKELETAL PHYSICIAN Start Date: 01/25/17 Stop Date: 01/26/17 Status: DiscontinuedZofran 4 mg, Route: IVP, Drug form: INJ, ONCE, Dosing Weight 52.273, kg, Priority: STAT , Start date: 01/24/17 22:07:00 CDT, Stop date: 01/24/17 22:07:00 CDT Start Date: 01/24/17 Stop Date: 01/24/17 Status: Completed Results ELECTROLYTES Most recent to oldest 1 2 3 [Reference Range]: Sodium Lvl [135-145 mEq/L] 137 mEq/L 135 mEq/L 134 mEq/L (01/26/17 4:02 AM) (01/25/17 3:00 PM) *LOW* (01/25/17 3:54 AM) Potassium Lvl [3.5-5.1 3.7 mEq/L 3.6 mEq/L 3.5 mEq/L mEq/L] (01/26/17 4:02 AM) (01/25/17 3:00 PM) (01/25/17 3:54 AM) Chloride Lvl [95-109 mEq/L] 106 mEq/L 105 mEq/L 102 mEq/L (01/26/17 4:02 AM) (01/25/17 3:00 PM) (01/25/17 3:54 AM) CO2 [24-32 mEq/L] 25 mEq/L 25 mEq/L 23 mEq/L (01/26/17 4:02 AM) (01/25/17 3:00 PM) *LOW* (01/25/17 3:54 AM) AGAP [10.0-20.0 mEq/L] 9.7 mEq/L 8.6 mEq/L 12.5 mEq/L *LOW* *LOW* (01/25/17 3:54 AM) (01/26/17 4:02 AM) (01/25/17 3:00 PM) CHEM PANEL Most recent to oldest 1 2 3 [Reference Range]: Creatinine Lvl [0.50-1.40 0.40 mg/dL 0.50 mg/dL 0.60 mg/dL mg/dL] *LOW* (01/25/17 3:00 PM) (01/25/17 3:54 AM) (01/26/17 4:02 AM) eGFR 121 mL/min/1.73m2 1 112 mL/min/1.73m2 2 106 mL/min/1.73m2 3 *NA* *NA* *NA* (01/26/17 4:02 AM) (01/25/17 3:00 PM) (01/25/17 3:54 AM) BUN [7-22 mg/dL] 5 mg/dL 8 mg/dL 9 mg/dL *LOW* (01/25/17 3:00 PM) (01/25/17 3:54 AM) (01/26/17 4:02 AM) B/C Ratio [6-25] 12 16 (01/26/17 4:02 AM) (01/24/17 9:44 PM) Glucose Lvl [70-99 mg/dL] 261 mg/dL 263 mg/dL 405 mg/dL 4 *HI* *HI* *CRIT* (01/26/17 4:02 AM) (01/25/17 3:00 PM) (01/25/17 3:54 AM) Total Protein [6.4-8.4 5.7 g/dL 8.2 g/dL g/dL] *LOW* (01/24/17 9:44 PM) (01/26/17 4:02 AM) Albumin Lvl [3.5-5.0 g/dL] 2.4 g/dL 2.6 g/dL 3.5 g/dL *LOW* *LOW* (01/24/17 9:44 PM) (01/26/17 4:02 AM) (01/25/17 3:00 PM) Globulin [2.7-4.2 g/dL] 3.3 g/dL 4.7 g/dL (01/26/17 4:02 AM) *HI* (01/24/17 9:44 PM) A/G Ratio [0.7-1.6] 0.7 0.7 (01/26/17 4:02 AM) (01/24/17 9:44 PM) Calcium Lvl [8.5-10.5 7.4 mg/dL 6.9 mg/dL 5 7.1 mg/dL mg/dL] *LOW* *CRIT* *LOW* (01/26/17 4:02 AM) (01/25/17 3:00 PM) (01/25/17 3:54 AM) Phosphorus [2.5-4.5 mg/dL] 2.7 mg/dL (01/25/17 3:54 AM) Magnesium Lvl [1.8-2.4 1.7 mg/dL mg/dL] *LOW* (01/25/17 3:54 AM) ALT [0-65 unit/L] 44 unit/L 37 unit/L (01/26/17 4:02 AM) (01/24/17 9:44 PM) AST [0-37 unit/L] 37 unit/L 14 unit/L (01/26/17 4:02 AM) (01/24/17 9:44 PM) Alk Phos [39-136 unit/L] 165 unit/L 222 unit/L *HI* *HI* (01/26/17 4:02 AM) (01/24/17 9:44 PM) Bili Total [0.2-1.3 mg/dL] 0.2 mg/dL 0.5 mg/dL (01/26/17 4:02 AM) (01/24/17 9:44 PM) Lipase Lvl [73-393 unit/L] 168 unit/L (01/24/17 9:44 PM) 1Result Comment: The eGFR is calculated using the CKD-EPI formula. In most young , healthy individualsthe eGFR will be >90 mL/min/1.73m2. The eGFR declines with age. An eGFR of 60-89 may be normal in some populations, particularly the elderly, for whom the CKD-EPI formula has not been extensively validated. Use of the eGFR is not recommended in the following populations: Individuals with unstable creatinine concentrations, including patients and those with serious co-morbid conditions. Patients with extremes in muscle mass or diet. The data above are obtained from the National Kidney Disease Education Program ( NKDEP) which additionally recommends that when the eGFR is used in patients with extremes of body mass index for purposesof drug dosing, the eGFR should be multiplied by the estimated BMI.2Result Comment: The eGFR is calculated using the CKD-EPI formula. In most young, healthy individualsthe eGFR will be >90 mL/ min/1.73m2. The eGFR declines with age. An eGFR of 60-89 may be normal in some populations, particularly the elderly, for whom the CKD-EPI formula has not been extensively validated. Use of the eGFR is not recommended in the following populations: Individuals with unstable creatinine concentrations, including patients and those with serious co-morbid conditions. Patients with extremes in muscle mass or diet. The data above are obtained from the National Kidney Disease Education Program ( NKDEP) which additionally recommends that when the eGFR is used in patients with extremes of body mass index for purposesof drug dosing, the eGFR should be multiplied by the estimated BMI.3Result Comment: The eGFR is calculated using the CKD-EPI formula. In most young, healthy individualsthe eGFR will be >90 mL/ min/1.73m2. The eGFR declines with age. An eGFR of 60-89 may be normal in some populations, particularly the elderly, for whom the CKD-EPI formula has not been extensively validated. Use of the eGFR is not recommended in the following populations: Individuals with unstable creatinine concentrations, including patients and those with serious co-morbid conditions. Patients with extremes in muscle mass or diet. The data above are obtained from the National Kidney Disease Education Program ( NKDEP) which additionally recommends that when the eGFR is used in patients with extremes of body mass index for purposesof drug dosing, the eGFR should be multiplied by the estimated BMI.4Result Comment: Critical Result(s) called to Dung Mullins at 01/25/2017 04:39 by CV. Read back OK.5Result Comment: Critical Result(s) called to uyen martinez_ at _01/25/2017 15:47 by_bz. Read back OK.CARDIAC ENZYMES Most recent to oldest [Reference Range]: 1 2 3 Total CK [12-191 unit/L] 62 unit/L (01/24/17 9:44 PM) CK MB [0.5-3.6 ng/mL] <1.0 ng/mL (01/24/17 9:44 PM) CK MB Index [0.0-2.5] <1.6 (01/24/17 9:44 PM) Troponin-I [0.00-0.40 ng/mL] <0.02 ng/mL <0.02 ng/mL (01/25/17 5:26 PM) (01/24/17 9:44 PM) SPECIAL CHEMISTRY Most recent to oldest [Reference Range]: 1 2 3 Hgb A1C [<=5.6 %] >16.0 % (01/25/17 3:54 AM) PARATHYROID PROFILE Most recent to oldest [Reference Range]: 1 2 3 Ca Ion WB [1.05-1.25 mMol/L] 1.01 mMol/L *LOW* (01/25/17 5:26 PM) Ca Norm WB [1.05-1.25 mMol/L] 0.99 mMol/L *LOW* (01/25/17 5:26 PM) URINE AND STOOL Most recent to oldest [Reference Range]: 1 2 3 UA Turbidity [Clear] Clear (01/24/17 11:54 PM) UA Color [Yellow] Yellow *NA* (01/24/17 11:54 PM) UA pH [5.0-8.0] 5.5 (01/24/17 11:54 PM) UA Spec Grav [<=1.030] <=1.005 *NA* (01/24/17 11:54 PM) UA Glucose [Negative mg/dL] >=1000 mg/dL *ABN* (01/24/17 11:54 PM) UA Blood [Negative] Negative (01/24/17 11:54 PM) UA Ketones [Negative] Negative *NA* (01/24/17 11:54 PM) UA Protein [Negative] Negative (01/24/17 11:54 PM) UA Urobilinogen [0.1-1.0 EU/dL] 0.2 EU/dL (01/24/17 11:54 PM) UA Bili [Negative] Negative *NA* (01/24/17 11:54 PM) UA Leuk Est [Negative] Negative (01/24/17 11:54 PM) UA Nitrite [Negative] Positive *ABN* (01/24/17 11:54 PM) UA WBC [None Seen /HPF] 11-20 /HPF *ABN* (01/24/17 11:54 PM) UA RBC [0-2 /HPF] 0-2 /HPF (01/24/17 11:54 PM) UA Bacteria [None Seen /HPF] Moderate /HPF (01/24/17 11:54 PM) UA Sq Epi [Few /LPF] Occasional /LPF (01/24/17 11:54 PM) HEMATOLOGY Most recent to oldest [Reference Range]: 1 2 3 WBC [3.7-10.4 K/CMM] 5.5 K/CMM 5.8 K/CMM (01/25/17 3:54 AM) (01/24/17 9:44 PM) RBC [4.20-5.40 M/CMM] 3.88 M/CMM 4.97 M/CMM *LOW* (01/24/17 9:44 PM) (01/25/17 3:54 AM) Hgb [12.0-16.0 g/dL] 10.7 g/dL 13.7 g/dL *LOW* (01/24/17 9:44 PM) (01/25/17 3:54 AM) Hct [36.0-48.0 %] 32.0 % 41.6 % *LOW* (01/24/17 9:44 PM) (01/25/17 3:54 AM) MCV [80.0-98.0 fL] 82.5 fL 83.6 fL (01/25/17 3:54 AM) (01/24/17 9:44 PM) MCH [27.0-31.0 pg] 27.6 pg 27.5 pg (01/25/17 3:54 AM) (01/24/17 9:44 PM) MCHC [32.0-36.0 g/dL] 33.4 g/dL 32.9 g/dL (01/25/17 3:54 AM) (01/24/17 9:44 PM) RDW [11.5-14.5 %] 13.6 % 13.6 % (01/25/17 3:54 AM) (01/24/17 9:44 PM) Platelet [133-450 K/CMM] 244 K/CMM 314 K/CMM (01/25/17 3:54 AM) (01/24/17 9:44 PM) MPV [7.4-10.4 fL] 7.4 fL 8.1 fL (01/25/17 3:54 AM) (01/24/17 9:44 PM) Segs [45.0-75.0 %] 55.0 % 59.9 % (01/25/17 3:54 AM) (01/24/17 9:44 PM) Lymphocytes [20.0-40.0 %] 36.3 % 31.7 % (01/25/17 3:54 AM) (01/24/17 9:44 PM) Monocytes [2.0-12.0 %] 7.2 % 7.1 % (01/25/17 3:54 AM) (01/24/17 9:44 PM) Eosinophils [0.0-4.0 %] 0.9 % 0.6 % (01/25/17 3:54 AM) (01/24/17 9:44 PM) Basophils [0.0-1.0 %] 0.6 % 0.7 % (01/25/17 3:54 AM) (01/24/17 9:44 PM) Segs-Bands # [1.5-8.1 K/CMM] 3.0 K/CMM 3.5 K/CMM (01/25/17 3:54 AM) (01/24/17 9:44 PM) Lymphocytes # [1.0-5.5 K/CMM] 2.0 K/CMM 1.8 K/CMM (01/25/17 3:54 AM) (01/24/17 9:44 PM) Monocytes # [0.0-0.8 K/CMM] 0.4 K/CMM 0.4 K/CMM (01/25/17 3:54 AM) (01/24/17 9:44 PM) Immunizations No data available for this section Procedures No data available for this section Social History Social History Type Response Substance Abuse Use: None. Sexual Sexually active: Yes. Exercise Exercise type: Walking. Employment/School Status: Retired. Alcohol Never Smoking Status Never smoker; Ready to change: No; Concerns about tobacco use in household: No; Exposure to Tobacco Smoke None; Lives with someone who smokes; Cigarette Smoking Last 365 Days No; Reg Smoking Cessation Counseling No Assessment and Plan Extracted from: Title: Progress Note * Author: Marie June MD Date: 01/25/17 Impression and Plan The patient was seen and examined by me with the resident/SAFETY AND OCCUPATIONAL HEALTH MANAGER/PA and I agree with the History/Exam documented. -Uncontrolled DM: non complaint with her lantus. A1c >16. sugars better since receiving insulin mostly in 200 range. start lantus tonight at lower dose marizol n home dose as not eating much and not taking it as prescribed at home. monitor for hypoglycemia. encouraged medication compliance. decrease ivfls. -LUQ abd pain: unclear etio. CT abd neg for acute pathology. Lipase NL. prob musculoskeletal. try torasol. not liking norco states it puts her to sleep and not alleviating pain.check EKG and troponin level. 1st set neg. -GERD: add PPI. has h/o hiatal hernia -RLS: resume home meds. -UTI: on meds. awaiting urine c/s -Hypomagenesemia: supplement -Hypocalcemia: check inonized ca. no perioral pareasthesias or muscle twitching. -DVT prophylaxis: early ambulation. Extracted from: Title: History and Physical Author: Greg Garza MD Date: 01/25/17 Assessment/Plan 1. Urinary tract infection 2. Diabetes mellitus type 2severely uncontrolled 3. Hyponatremia secondary to elevated blood glucose Plan: [facility] patient observation status For urinary tract infection patient will be started on ceftriaxone 1 g IV every 24 hours. Await urine culture sensitivity. Diabetes mellitus type 2 uncontrolled blood glucose elevatedgreater than 700 secondary to noncompliance with insulin for the past couple days. Patient does not have an anion gap bicarb levels are normal since patient is not in ketoacidosis. Patient does have acute hypoglycemia. Start patient on IV fluids normal saline at 1 25 cc/h Start patient on insulin sliding scale along with long-acting insulin. Hyponatremia likely secondary to fluid loss as well as elevated blood glucose. Continue patient IV fluids and monitor sodium levels. IVZofran as needed nausea vomiting andNorco as needed abdominal pain. Prophylaxis DVT prophylaxis withSCDs
--- OUTSIDE RECORDS SUMMARY | 2018-08-15 15:08 | XMS REPORT ---
:1965 [facility] Address [address] [place] [address] [address]. [address] [place] [address] Care Team Providers Name Role Phone PRINCESS MARIE Unavailable Unavailable DALLIN SUMNER Unavailable Unavailable ASTON WARNER Unavailable Unavailable ADRIANNA KANG Unavailable Unavailable Problems This patient has no known problems. Allergies, Adverse Reactions, Alerts This patient has no known allergies or adverse reactions. Medications This patient has no known medications. Results Test Description Test Time Test Comments Text Results Atomic Results Result Comments POCT-GLUCOSE METER 2017-10-07 11:53:00 Test Item Value Reference Range Comments POC-GLUCOSE METER (BEAKER) (test 277 mg/dL 70-110 TESTED AT [address] sjsu=7613) [facility] [address] POCT-GLUCOSE [id number] 11:53:00 Test Item Value Reference Range Comments POC-GLUCOSE METER (BEAKER) 411 mg/dL 70-110 TESTED AT [address] (test cmxl=2423) [facility] [address] RAD, SPINE, CERVICAL, 2 OR 3 [id number] 23:46:00Reason for exam:->neck painFINAL REPORT RAD, SPINE, CERVICAL, 1 view. CLINICAL INDICATION: neck pain COMPARISON: None FINDINGS/IMPRESSION: A single lateral view of the cervical spine was obtained.The study is limited due to obliquity. Vertebral body height and and alignment is maintained. The intervertebral disc spaces are not well evaluated. There is no prevertebral soft tissue swelling. Signed: Kaity Grayson Verified Date/Time: 10/06/2017 23:46:30 Reading Location: [address] Reading Room CT, SPINE, CERVICAL, WO [id number] 23:44:00Reason for exam:->neck painReason for exam:-> EMESISIs the patient ?->NoWhat is the patient's sedation requirement? ->No SedationFINAL REPORT CT cervical spine without contrast INDICATION: Emesis and severeneck pain. COMPARISON: No prior study for direct [...] a small lucency in the posterior C6 vertebralbody without bony erosive change. The articular facets [...] There are minimal atherosclerotic calcifications of the leftcarotid bulb. The visualized aerodigestive tract is unremarkable. IMPRESSION:No acute cervical spine fracture or traumatic malalignment. Small lucency in the C6 vertebral body, nonspecific. Differential diagnosis includes a cyst, intraosseous hemangioma or metastases/multiple myeloma. Clinical correlation is recommended. Bone scan or MRI may be performed for further evaluation as clinically warranted. Signed: Kaity Grayson MDReport Verified Date /Time: 10/06/2017 23:44:40 Reading Location: [address] Reading Room CT, BRAIN, WITHOUT [id number] 23:24:00Reason for exam:->occipital headacheReason for exam:->EMESISIs the patient ?->NoWhat is the patient's sedation requirement?->No SedationFINAL REPORT EXAMINATION NONCONTRAST HEAD CT SCAN CLINICAL HISTORY:Severe occipital headache. Vomiting. COMPARISON CT: 05/07/2016 EPISODE OF CARE: Initial TECHNIQUE: Axial tomographic images were obtained through the brain from the vertex to the skull base without intravenous contrast. The exam was performed according to our departmental dose optimization program which includes automated exposure control, adjustment of the mA and/or kV according to patient' s size and/or use of iterative reconstructive technique. [...] MRI for further evaluation. Signed: Carla Oden [facility] Verified Date/Time: 10/06/2017 23:24:44 Reading Location: [address] Reading Room Electronically signed by: CARLA ODEN M.D. on 11:24 PMTROPONIN [id number] 22:56:00 Test Item Value Reference Range Comments TROPONIN I (BEAKER) (test jcnh=631) < ng/mL 0.00-0.15 Troponin I (TnI) levels must be interpreted [...] failure, acidosis, acute neurological disease, and persistent tachyarrhythmia.COMPREHENSIVE METABOLIC [id number] 22:50:00 Test Item Value Reference Range Comments TOTAL PROTEIN (BEAKER) 8.5 gm/dL 6.0-8.5 (test izev=146) ALBUMIN (BEAKER) (test 4.3 g/dL 3.5-5.0 mbmo=6422) ALKALINE PHOSPHATASE 126 U/L 30-115 (BEAKER) (test rrbv=432) BILIRUBIN TOTAL (BEAKER) 0.5 mg/dL 0.1-1.2 (test azzj=803) SODIUM (BEAKER) (test 134 meq/L 135-148 sqpl=777) POTASSIUM (BEAKER) (test 4.3 meq/L 3.6-5.5 kfim=689) CHLORIDE (BEAKER) (test 97 meq/L 98-106 dkzz=388) CO2 (BEAKER) (test 24 meq/L 20-29 ugkt=960) BLOOD UREA NITROGEN 17 mg/dL 10-26 (BEAKER) (test snsk=481) CREATININE (BEAKER) (test 1.01 mg/dL 0.50-1.20 iyvt=482) GLUCOSE RANDOM (BEAKER) 414 mg/dL 70-110 (test evzr=091) CALCIUM (BEAKER) (test 9.6 mg/dL 8.5-10.5 epxj=557) AST (SGOT) (BEAKER) (test 11 U/L 5-40 vdtp=004) ALT (SGPT) (BEAKER) (test 9 U/L 5-50 epdq=593) EGFR (BEAKER) (test 58 mL/min/1.73 sq m ESTIMATED GFR IS NOT javn=8723) ACCURATE CREATININE CLEARANCE IN PREDICTING GLOMERULAR FILTRATION RATE. ESTIMATED GFR IS NOT APPLICABLE FOR DIALYSIS PATIENTS. [id number] 22:42:00 Test Item Value Reference Range Comments AMYLASE (BEAKER) (test bufx=853) 58 U/L 30-110 CBC W/PLT COUNT & AUTO [id number] 22:22:00 Test Item Value Reference Range Comments WHITE BLOOD CELL COUNT (BEAKER) (test txlk=230) 10.9 K/ L 4.0-10.0 RED BLOOD CELL COUNT (BEAKER) (test eqfj=469) 4.45 M/ L 4.00-5.00 HEMOGLOBIN (BEAKER) (test bsjv=119) 12.2 GM/DL 12.0-15.0 HEMATOCRIT (BEAKER) (test eivk=431) 37.0 % 36.0-45.0 MEAN CORPUSCULAR VOLUME (BEAKER) (test bhio=254) 83.2 fL 82.0-99.0 MEAN CORPUSCULAR HEMOGLOBIN (BEAKER) (test 27.4 pg 27.0-33.0 fqpo=878) MEAN CORPUSCULAR HEMOGLOBIN CONC (BEAKER) (test 32.9 GM/DL 32.0-36.0 sysd=012) RED CELL DISTRIBUTION WIDTH (BEAKER) (test 14.0 % 10.3-14.2 tbcp=698) PLATELET COUNT (BEAKER) (test avpq=199) 359 K/CU MM 150-430 MEAN PLATELET VOLUME (BEAKER) (test sotn=343) 7.8 fL 6.5-10.5 NUCLEATED RED BLOOD CELLS (BEAKER) (test 0 /100 WBC 0-0 kmbh=042) NEUTROPHILS RELATIVE PERCENT (BEAKER) (test 71 % dsed=783) LYMPHOCYTES RELATIVE PERCENT (BEAKER) (test 23 % amby=287) MONOCYTES RELATIVE PERCENT (BEAKER) (test 5 % rxeo=879) EOSINOPHILS RELATIVE PERCENT (BEAKER) (test 0 % hceo=218) BASOPHILS RELATIVE PERCENT (BEAKER) (test 1 % nlky=767) NEUTROPHILS ABSOLUTE COUNT (BEAKER) (test 7.70 K/ L 1.80-8.00 thsp=548) LYMPHOCYTES ABSOLUTE COUNT (BEAKER) (test 2.50 K/ L 1.48-4.50 jtsr=951) MONOCYTES ABSOLUTE COUNT (BEAKER) (test 0.60 K/ L 0.00-1.30 bssm=451) EOSINOPHILS ABSOLUTE COUNT (BEAKER) (test 0.00 K/ L 0.00-0.50 parn=477) BASOPHILS ABSOLUTE COUNT (BEAKER) (test 0.10 K/ L 0.00-0.20 hkxs=802) URINALYSIS W/ [id number] 22:09:00 Test Item Value Reference Range Comments COLOR (BEAKER) (test abgt=208) Yellow CLARITY (BEAKER) (test nuok=628) Clear SPECIFIC GRAVITY UA (BEAKER) (test kjco=196) <= 1.001-1.035 PH UA (BEAKER) (test zejb=605) 6.0 5.0-8.0 PROTEIN UA (BEAKER) (test jdfx=517) Negative Negative GLUCOSE UA (BEAKER) (test pftd=511) >=1000 mg/dL Negative KETONES UA (BEAKER) (test abkt=494) Negative Negative BILIRUBIN UA (BEAKER) (test iwxj=395) Negative Negative BLOOD UA (BEAKER) (test cqbr=138) Trace Negative NITRITE UA (BEAKER) (test cjjz=012) Positive Negative LEUKOCYTE ESTERASE UA (BEAKER) (test ongh=523) Negative Negative UROBILINOGEN UA (BEAKER) (test xxza=672) 0.2 mg/dL 0.2-1.0 BACTERIA (BEAKER) (test wrgr=973) Many RBC UA-MANUAL (BEAKER) (test jwpp=5981) <5 /HPF WBC UA-MANUAL (BEAKER) (test fwzk=9362) 10-20 /HPF SQUAMOUS EPITHELIAL MANUAL (BEAKER) (test <5 /HPF lzts=8621) SOURCE(BEAKER) (test dyuu=3343) POCT-GLUCOSE [id number] 07:19:00 Test Item Value Reference Range Comments POC-GLUCOSE METER (BEAKER) 241 mg/dL 70-110 TESTED AT [address] (test aliq=8991) [address] [facility] [address] CT, [id number] 19:16:00FINAL REPORT CT OF THE ABDOMEN AND PELVIS [...] vein is patent. No definite focal liver lesion.PANCREAS: No pancreatic ductal dilation. No pancreatic lesion. SPLEEN: No splenomegaly. ADRENALS: No nodule. KIDNEYS/URETERS: No hydronephrosis or hydroureter. No obstructing renal or ureteral calculi. No definite solid renal lesion. No perinephric stranding.PELVIC ORGANS/BLADDER: Small amount of airin the nondependent portion of the bladder. GI TRACT: No bowel wall thickening or distention. PERITONEUM/ RETROPERITONEUM: No free fluid or free air.LYMPH NODES: No upper abdominal, retroperitoneal, mesenteric, or pelvic lymphadenopathy.VESSELS: Abdominal aorta normal in caliber. BONES AND SOFT TISSUES: No destructive osseous lesion. IMPRESSION:1. Small amount of air in the nondependent portion of the bladder. Suggest correlation with history as this finding may be seen with recent catheterization or instrumentation. In the absence of this history, presence of colovesicular or enterovesicular fistula should be considered. Correlation with urinalysis may also assist in further evaluation.2. Findings of prior cholecystectomy. Mild prominence of the common bile duct, within normal limits after cholecystectomy.3. Otherwise, no acute findings in the abdomen or pelvis. Signed: Gama Valdez MDReport Verified Date/Time: 09/22/2017 19:16:29 Reading Location: [facility] B1 C013W Consult Reading Room BASI METABOLIC [id number] 17: 37:00 Test Item Value Reference Range Comments SODIUM (BEAKER) (test 134 meq/L 135-148 ooyr=553) POTASSIUM (BEAKER) (test 5.1 meq/L 3.6-5.5 Specimen markedly qllk=214) hemolyzed CHLORIDE (BEAKER) (test 98 meq/L 98-106 qopg=696) CO2 (BEAKER) (test 16 meq/L 20-29 xrxo=654) BLOOD UREA NITROGEN 9 mg/dL 10-26 (BEAKER) (test ushv=046) CREATININE (BEAKER) (test 0.92 mg/dL 0.50-1.20 Specimen markedly dava=092) hemolyzed GLUCOSE RANDOM (BEAKER) 408 mg/dL 70-110 (test szsh=685) CALCIUM (BEAKER) (test 9.6 mg/dL 8.5-10.5 edjf=108) EGFR (BEAKER) (test 64 mL/min/1.73 sq m ESTIMATED GFR IS NOT vyay=4913) ACCURATE CREATININE CLEARANCE IN PREDICTING GLOMERULAR FILTRATION RATE. ESTIMATED GFR IS NOT APPLICABLE FOR DIALYSIS PATIENTS. TROPONIN [id number] 17:07:00 Test Item Value Reference Range Comments TROPONIN I (BEAKER) (test eqto=184) < ng/mL 0.00-0.15 Troponin I (TnI) levels must be interpreted [...] failure, acidosis, acute neurological disease, and persistent tachyarrhythmia.CREATINE KINASE (CK), TOTAL AND [id number] 17:06:00 Test Item Value Reference Range Comments CREATINE KINASE TOTAL (BEAKER) (test efos=885) 68 U/L 25-235 CREATINE KINASE-MB (BEAKER) (test pmhb=708) 0.6 ng/mL 0.0-4.9 CREATINE KINASE-MB INDEX (BEAKER) (test sted=795) 0.9 % CK-MB Reference Range:<5 Normal5-10 Borderline>10 [id number] 17:00:00 Test Item Value Reference Range Comments LIPASE (BEAKER) (test thhk=955) 26 U/L 6-51 [id number] 16:51:00 Test Item Value Reference Range Comments AMYLASE (BEAKER) (test qfhk=613) 32 U/L 30-110 Specimen markedly hemolyzed URINALYSIS W/ [id number] 16:21:00 Test Item Value Reference Range Comments COLOR (BEAKER) (test cmld=774) Yellow CLARITY (BEAKER) (test sivk=555) Slightly Cloudy SPECIFIC GRAVITY UA (BEAKER) (test blhf=998) <= 1.001-1.035 PH UA (BEAKER) (test niqg=810) 5.5 5.0-8.0 PROTEIN UA (BEAKER) (test pgcv=140) Negative Negative GLUCOSE UA (BEAKER) (test jote=986) >=1000 mg/dL Negative KETONES UA (BEAKER) (test okrt=655) Negative Negative BILIRUBIN UA (BEAKER) (test xlru=619) Negative Negative BLOOD UA (BEAKER) (test ujan=086) Trace Negative NITRITE UA (BEAKER) (test qqwy=918) Positive Negative LEUKOCYTE ESTERASE UA (BEAKER) (test Negative Negative mwtx=025) UROBILINOGEN UA (BEAKER) (test yrub=480) 0.2 mg/dL 0.2-1.0 BACTERIA (BEAKER) (test qsqd=361) Many AMORPHOUS CRYSTALS (BEAKER) (test ssdr=6889) Moderate RBC UA-MANUAL (BEAKER) (test geri=6420) 5-10 /HPF WBC UA-MANUAL (BEAKER) (test ngfy=0066) 50-100 /HPF SQUAMOUS EPITHELIAL MANUAL (BEAKER) (test <5 /HPF dmhj=5933) SOURCE(BEAKER) (test uyxl=3224) CBC W/PLT COUNT & AUTO [id number] 16:15:00 Test Item Value Reference Range Comments WHITE BLOOD CELL COUNT (BEAKER) (test yjdq=470) 6.8 K/ L 4.0-10.0 RED BLOOD CELL COUNT (BEAKER) (test pwta=210) 4.46 M/ L 4.00-5.00 HEMOGLOBIN (BEAKER) (test ovuz=151) 12.5 GM/DL 12.0-15.0 HEMATOCRIT (BEAKER) (test vgre=949) 37.3 % 36.0-45.0 MEAN CORPUSCULAR VOLUME (BEAKER) (test fujo=935) 83.7 fL 82.0-99.0 MEAN CORPUSCULAR HEMOGLOBIN (BEAKER) (test 28.0 pg 27.0-33.0 fcnx=283) MEAN CORPUSCULAR HEMOGLOBIN CONC (BEAKER) (test 33.4 GM/DL 32.0-36.0 frii=245) RED CELL DISTRIBUTION WIDTH (BEAKER) (test 13.4 % 10.3-14.2 tcgg=950) PLATELET COUNT (BEAKER) (test uxdu=702) 340 K/CU MM 150-430 MEAN PLATELET VOLUME (BEAKER) (test jywa=262) 7.9 fL 6.5-10.5 NUCLEATED RED BLOOD CELLS (BEAKER) (test 0 /100 WBC 0-0 drly=871) NEUTROPHILS RELATIVE PERCENT (BEAKER) (test 60 % ghyr=512) LYMPHOCYTES RELATIVE PERCENT (BEAKER) (test 32 % hknb=602) MONOCYTES RELATIVE PERCENT (BEAKER) (test 7 % shok=387) EOSINOPHILS RELATIVE PERCENT (BEAKER) (test 1 % zdpl=502) BASOPHILS RELATIVE PERCENT (BEAKER) (test 0 % muym=534) NEUTROPHILS ABSOLUTE COUNT (BEAKER) (test 4.00 K/ L 1.80-8.00 ijlj=587) LYMPHOCYTES ABSOLUTE COUNT (BEAKER) (test 2.20 K/ L 1.48-4.50 iktq=166) MONOCYTES ABSOLUTE COUNT (BEAKER) (test 0.50 K/ L 0.00-1.30 ywlt=650) EOSINOPHILS ABSOLUTE COUNT (BEAKER) (test 0.10 K/ L 0.00-0.50 dsaz=485) BASOPHILS ABSOLUTE COUNT (BEAKER) (test 0.00 K/ L 0.00-0.20 bwsb=083) POCT-GLUCOSE [id number] 15:36:00 Test Item Value Reference Range Comments POC-GLUCOSE METER (BEAKER) 284 mg/dL 70-110 TESTED AT [address] (test qupg=7052) [address] [facility] [address] CT, [id number] 15:32:00Reason for exam:->LLQ ABD PAINIs the patient ?->NoWhat is the patient's sedation requirement?->No SedationFINAL REPORT CT OF THE ABDOMEN AND PELVIS CLINICAL HISTORY: Left lower quadrant pain TECHNIQUE: CT of the abdomen and pelvis is performed with intravenous contrast administration. This exam was performed according to our departmental dose-optimization program which includes automated exposure control, adjustment of the mA and/or kV according to patient size and/or use of iterative reconstruction technique. COMPARISON FILM: CT of the abdomen and pelvis from 07/09/2016 DISCUSSION: LOWER THORAX: Unremarkable. HEPATOBILIARY: Prior cholecystectomy. Main portal vein patent. No biliary ductal dilation.PANCREAS: No pancreatic ductal dilation. No pancreatic lesion. SPLEEN: No splenomegaly. ADRENALS: No nodule. KIDNEYS/URETERS: No hydronephrosis or hydroureter. No solid lesion.PELVIC ORGANS/BLADDER: Unremarkable. GI TRACT: There is mild wall thickening in the distal descending andsigmoid colon, likely accentuated by nondistention. No pericolonic abscess, significant free fluid, or free air. Remainder of the bowel is unremarkable. PERITONEUM/RETROPERITONEUM: No free fluid or free air.LYMPH NODES: No upper abdominal, retroperitoneal, mesenteric, or pelvic lymphadenopathy.VESSELS: Abdominal aorta normal in caliber. BONES AND SOFT TISSUES: No destructive osseous lesion. IMPRESSION: Mild wall thickening in the distal descending and sigmoid colon may represent an infectious or inflammatory colitis. No abscess, free air, or free fluid. Recommend follow-up CT and/or endoscopy afterresolution of symptoms to exclude underlying malignancy given the persistence of this finding since prior examination dated 07/09/2016. Signed: Gama Valdez MDReport Verified Date/Time: 07/07/2017 15:32:20 Reading Location: [facility] B1 C013Y CT Body Reading Room [id number] 14:41:00 Test Item Value Reference Range Comments LIPASE (BEAKER) (test qugh=616) 32 U/L 6-51 COMPREHENSIVE METABOLIC [id number] 14:40:00 Test Item Value Reference Range Comments TOTAL PROTEIN (BEAKER) 7.1 gm/dL 6.0-8.5 (test czmi=950) ALBUMIN (BEAKER) (test 3.6 g/dL 3.5-5.0 nzvf=7706) ALKALINE PHOSPHATASE 159 U/L 30-115 (BEAKER) (test xpfq=036) BILIRUBIN TOTAL (BEAKER) 0.3 mg/dL 0.1-1.2 (test ultd=195) SODIUM (BEAKER) (test 132 meq/L 135-148 xbii=172) POTASSIUM (BEAKER) (test 4.1 meq/L 3.6-5.5 rpss=720) CHLORIDE (BEAKER) (test 98 meq/L 98-106 ores=418) CO2 (BEAKER) (test 27 meq/L 20-29 hsld=945) BLOOD UREA NITROGEN 13 mg/dL 10-26 (BEAKER) (test gwei=977) CREATININE (BEAKER) (test 0.80 mg/dL 0.50-1.20 oxek=534) GLUCOSE RANDOM (BEAKER) 399 mg/dL 70-110 (test flqi=889) CALCIUM (BEAKER) (test 8.9 mg/dL 8.5-10.5 gemf=010) AST (SGOT) (BEAKER) (test 9 U/L 5-40 gtml=342) ALT (SGPT) (BEAKER) (test 11 U/L 5-50 cshh=571) EGFR (BEAKER) (test 76 mL/min/1.73 sq m ESTIMATED GFR IS NOT skoj=2914) ACCURATE CREATININE CLEARANCE IN PREDICTING GLOMERULAR FILTRATION RATE. ESTIMATED GFR IS NOT APPLICABLE FOR DIALYSIS PATIENTS. POCT-GLUCOSE [id number] 14:10:00 Test Item Value Reference Range Comments POC-GLUCOSE METER (BEAKER) 352 mg/dL 70-110 TESTED AT [facility] [address] [place] [address] (test lzsi=4683) [address] [facility] [address] CBC W/PLT COUNT & AUTO [id number] 13:30:00 Test Item Value Reference Range Comments WHITE BLOOD CELL COUNT (BEAKER) (test lxij=285) 5.5 K/ L 4.0-10.0 RED BLOOD CELL COUNT (BEAKER) (test ypbf=615) 3.93 M/ L 4.00-5.00 HEMOGLOBIN (BEAKER) (test qmyi=184) 10.9 GM/DL 12.0-15.0 HEMATOCRIT (BEAKER) (test dwhd=533) 32.8 % 36.0-45.0 MEAN CORPUSCULAR VOLUME (BEAKER) (test vjts=417) 83.4 fL 82.0-99.0 MEAN CORPUSCULAR HEMOGLOBIN (BEAKER) (test 27.8 pg 27.0-33.0 lojw=631) MEAN CORPUSCULAR HEMOGLOBIN CONC (BEAKER) (test 33.3 GM/DL 32.0-36.0 isnh=502) RED CELL DISTRIBUTION WIDTH (BEAKER) (test 13.6 % 10.3-14.2 ezyc=848) PLATELET COUNT (BEAKER) (test mhxx=627) 344 K/CU MM 150-430 MEAN PLATELET VOLUME (BEAKER) (test uivt=282) 8.5 fL 6.5-10.5 NEUTROPHILS RELATIVE PERCENT (BEAKER) (test 59 % cbcq=963) LYMPHOCYTES RELATIVE PERCENT (BEAKER) (test 36 % kepw=049) MONOCYTES RELATIVE PERCENT (BEAKER) (test 4 % fruh=475) EOSINOPHILS RELATIVE PERCENT (BEAKER) (test 1 % nixn=994) BASOPHILS RELATIVE PERCENT (BEAKER) (test 0 % cucc=255) NEUTROPHILS ABSOLUTE COUNT (BEAKER) (test 3.20 K/ L 1.80-8.00 yegn=459) LYMPHOCYTES ABSOLUTE COUNT (BEAKER) (test 2.00 K/ L 1.48-4.50 liwx=322) MONOCYTES ABSOLUTE COUNT (BEAKER) (test 0.20 K/ L 0.00-1.30 yqlc=115) EOSINOPHILS ABSOLUTE COUNT (BEAKER) (test 0.10 K/ L 0.00-0.50 mqsd=851) BASOPHILS ABSOLUTE COUNT (BEAKER) (test 0.00 K/ L 0.00-0.20 rifv=104) URINALYSIS W/ [id number] 13:01:00 Test Item Value Reference Range Comments COLOR (BEAKER) (test knhh=165) Light Yellow CLARITY (BEAKER) (test hgmv=375) Clear SPECIFIC GRAVITY UA (BEAKER) (test qmgg=889) <= 1.001-1.035 PH UA (BEAKER) (test wwkj=170) 6.0 5.0-8.0 PROTEIN UA (BEAKER) (test jtuq=786) Negative Negative GLUCOSE UA (BEAKER) (test wdoi=472) >=1000 mg/dL Negative KETONES UA (BEAKER) (test rvss=010) Negative Negative BILIRUBIN UA (BEAKER) (test odkm=946) Negative Negative BLOOD UA (BEAKER) (test nshg=303) Negative Negative NITRITE UA (BEAKER) (test jljf=910) Negative Negative LEUKOCYTE ESTERASE UA (BEAKER) (test Negative Negative larj=818) UROBILINOGEN UA (BEAKER) (test afqy=077) 0.2 mg/dL 0.2-1.0 BACTERIA (BEAKER) (test svid=570) Few RBC UA-MANUAL (BEAKER) (test comp=3799) None Seen /HPF WBC UA-MANUAL (BEAKER) (test oneb=6036) <5 /HPF SQUAMOUS EPITHELIAL MANUAL (BEAKER) (test None Seen /HPF ewaj=4938) SOURCE(BEAKER) (test eeme=1133) KETONE, [id number] 12:58:00 Test Item Value Reference Range Comments KETONES, BLOOD (BEAKER) (test oxze=4337) 0.1 mmol/L <0.4 BLOOD GAS, [id number] 12:48:00 Test Item Value Reference Range Comments PH VENOUS (BEAKER) (test lrfg=071) 7.38 7.32-7.42 PCO2 VENOUS (BEAKER) (test fwmh=667) 46 mmHg 41-51 PO2 VENOUS (BEAKER) (test eusu=453) 73 mmHg 25-40 O2 SATURATION VENOUS (BEAKER) (test drgm=021) 94.5 % 40.0-70.0 HCO3 VENOUS (BEAKER) (test ypbf=894) 27 mmol/L 21-29 BASE EXCESS VENOUS (BEAKER) (test pskc=325) 1.3 mmol/L -2.0-3.0 PATIENT TEMPERATURE (BEAKER) (test wqyf=0668) 37.0 C FIO2 (BEAKER) (test sepc=2081) 37.0 % POCT-GLUCOSE [id number] 12:04:00 Test Item Value Reference Range Comments POC-GLUCOSE METER (BEAKER) > mg/dL 70-110 OUTSIDE MEASURING RANGETESTED AT (test lvkn=2474) [address] [address] URINE [id number] 09:22:00 Test Item Value Reference Range Comments CULTURE (BEAKER) (test KLEBSIELLA PNEUMONIAE >100,000 col/mL uzck=5028) SSP PNEUMONIAE Klebsiella pneumoniae ssp pneumoniae Ampicillin + Sulbactam (test code=6) Cefoxitin (test code=68) Ceftriaxone (test code=52) Gentamicin (test code=18) Levofloxacin (test code=22) Nitrofurantoin (test code=23) Piperacillin + Tazobactam (test code=29) Tetracycline (test code=2) Tobramycin (test code=25) Trimethoprim + Sulfamethoxazole (test code=47) POCT-GLUCOSE [id number] 23:15:00 Test Item Value Reference Range Comments POC-GLUCOSE METER (BEAKER) 227 mg/dL 70-110 TESTED AT [address] (test zdss=7029) [facility] [address] URINALYSIS W/ [id number] 22:36:00 Test Item Value Reference Range Comments COLOR (BEAKER) (test dxtt=992) Yellow CLARITY (BEAKER) (test fgnk=224) Clear SPECIFIC GRAVITY UA (BEAKER) (test btqx=368) <= 1.001-1.035 PH UA (BEAKER) (test kwku=482) 6.5 5.0-8.0 PROTEIN UA (BEAKER) (test swdg=426) Negative Negative GLUCOSE UA (BEAKER) (test ydqz=005) >=1000 mg/dL Negative KETONES UA (BEAKER) (test odzr=335) Trace Negative BILIRUBIN UA (BEAKER) (test ulqt=094) Negative Negative BLOOD UA (BEAKER) (test zbbv=296) Negative Negative NITRITE UA (BEAKER) (test pcsa=142) Positive Negative LEUKOCYTE ESTERASE UA (BEAKER) (test Negative Negative mgji=079) UROBILINOGEN UA (BEAKER) (test iytq=224) 0.2 mg/dL 0.2-1.0 BACTERIA (BEAKER) (test mlch=118) Many RBC UA-MANUAL (BEAKER) (test qqmd=5088) <5 /HPF WBC UA-MANUAL (BEAKER) (test ogbx=3388) <5 /HPF SQUAMOUS EPITHELIAL MANUAL (BEAKER) (test None Seen /HPF vnvd=0949) SOURCE(BEAKER) (test npqz=5326) KETONE, [id number] 22:32:00 Test Item Value Reference Range Comments KETONES, BLOOD (BEAKER) (test tyjr=7313) 0.6 mmol/L <0.4 BLOOD GAS, [id number] 22:30:00 Test Item Value Reference Range Comments PH VENOUS (BEAKER) (test zovj=885) 7.39 7.32-7.42 PCO2 VENOUS (BEAKER) (test jhlw=968) 48 mmHg 41-51 PO2 VENOUS (BEAKER) (test pubu=010) 28 mmHg 25-40 O2 SATURATION VENOUS (BEAKER) (test dxao=709) 51.3 % 40.0-70.0 HCO3 VENOUS (BEAKER) (test noxj=748) 29 mmol/L 21-29 BASE EXCESS VENOUS (BEAKER) (test jtxy=828) 3.0 mmol/L -2.0-3.0 PATIENT TEMPERATURE (BEAKER) (test nnsa=6041) 37.0 C FIO2 (BEAKER) (test ursj=0549) 21.0 % SCREEN, [id number] 22:29:00 Test Item Value Reference Range Comments TEST URINE (BEAKER) (test zxpx=839) Negative TROPONIN [id number] 21:42:00 Test Item Value Reference Range Comments TROPONIN I (BEAKER) (test tzpd=113) < ng/mL 0.00-0.15 Troponin I (TnI) levels must be interpreted [...] failure, acidosis, acute neurological disease, and persistent tachyarrhythmia.CREATINE KINASE (CK), TOTAL AND [id number] 21:41:00 Test Item Value Reference Range Comments CREATINE KINASE TOTAL (BEAKER) (test ixbw=677) 78 U/L 25-235 CREATINE KINASE-MB (BEAKER) (test sugl=041) 0.4 ng/mL 0.0-4.9 CREATINE KINASE-MB INDEX (BEAKER) (test aobq=726) 0.5 % CK-MB Reference Range:<5 Normal5-10 Borderline>10 AbnormalCOMPREHENSIVE METABOLIC [id number] 21:34:00 Test Item Value Reference Range Comments TOTAL PROTEIN (BEAKER) 8.8 gm/dL 6.0-8.5 Specimen moderately (test vsjw=551) hemolyzed ALBUMIN (BEAKER) (test 4.3 g/dL 3.5-5.0 Specimen moderately mcgn=1125) hemolyzed ALKALINE PHOSPHATASE 124 U/L 30-115 (BEAKER) (test gjpi=535) BILIRUBIN TOTAL (BEAKER) 0.4 mg/dL 0.1-1.2 Specimen moderately (test gwiz=968) hemolyzed SODIUM (BEAKER) (test 130 meq/L 135-148 erzq=296) POTASSIUM (BEAKER) (test 5.2 meq/L 3.6-5.5 Specimen moderately clrh=518) hemolyzed CHLORIDE (BEAKER) (test 93 meq/L 98-106 tzoz=082) CO2 (BEAKER) (test 24 meq/L 20-29 akhd=137) BLOOD UREA NITROGEN 11 mg/dL 10-26 (BEAKER) (test bkhc=556) CREATININE (BEAKER) (test 0.90 mg/dL 0.50-1.20 Specimen moderately catr=043) hemolyzed GLUCOSE RANDOM (BEAKER) 483 mg/dL 70-110 (test yuvu=151) CALCIUM (BEAKER) (test 9.6 mg/dL 8.5-10.5 utfb=129) AST (SGOT) (BEAKER) (test 21 U/L 5-40 Specimen moderately dsgo=877) hemolyzed ALT (SGPT) (BEAKER) (test 14 U/L 5-50 Specimen moderately ymic=398) hemolyzed EGFR (BEAKER) (test 66 mL/min/1.73 sq m ESTIMATED GFR IS NOT fwwt=7339) ACCURATE CREATININE CLEARANCE IN PREDICTING GLOMERULAR FILTRATION RATE. ESTIMATED GFR IS NOT APPLICABLE FOR DIALYSIS PATIENTS. [id number] 21:32:00 Test Item Value Reference Range Comments LIPASE (BEAKER) (test bmeq=251) 28 U/L 6-51 CBC W/PLT COUNT & AUTO [id number] 20:55:00 Test Item Value Reference Range Comments WHITE BLOOD CELL COUNT (BEAKER) (test ajri=816) 6.6 K/ L 4.0-10.0 RED BLOOD CELL COUNT (BEAKER) (test hdgk=914) 4.78 M/ L 4.00-5.00 HEMOGLOBIN (BEAKER) (test pcif=236) 12.9 GM/DL 12.0-15.0 HEMATOCRIT (BEAKER) (test inym=796) 39.6 % 36.0-45.0 MEAN CORPUSCULAR VOLUME (BEAKER) (test irun=802) 82.8 fL 82.0-99.0 MEAN CORPUSCULAR HEMOGLOBIN (BEAKER) (test 26.9 pg 27.0-33.0 bgbc=876) MEAN CORPUSCULAR HEMOGLOBIN CONC (BEAKER) (test 32.5 GM/DL 32.0-36.0 eqjm=543) RED CELL DISTRIBUTION WIDTH (BEAKER) (test 14.0 % 10.3-14.2 winq=221) PLATELET COUNT (BEAKER) (test mtkv=375) 335 K/CU MM 150-430 MEAN PLATELET VOLUME (BEAKER) (test nglt=818) 7.7 fL 6.5-10.5 NUCLEATED RED BLOOD CELLS (BEAKER) (test 0 /100 WBC 0-0 amuy=367) NEUTROPHILS RELATIVE PERCENT (BEAKER) (test 56 % efzl=827) LYMPHOCYTES RELATIVE PERCENT (BEAKER) (test 36 % apww=142) MONOCYTES RELATIVE PERCENT (BEAKER) (test 6 % spki=875) EOSINOPHILS RELATIVE PERCENT (BEAKER) (test 2 % xstq=361) BASOPHILS RELATIVE PERCENT (BEAKER) (test 0 % adoh=799) NEUTROPHILS ABSOLUTE COUNT (BEAKER) (test 3.70 K/ L 1.80-8.00 yudt=171) LYMPHOCYTES ABSOLUTE COUNT (BEAKER) (test 2.30 K/ L 1.48-4.50 tamv=047) MONOCYTES ABSOLUTE COUNT (BEAKER) (test 0.40 K/ L 0.00-1.30 ttwu=255) EOSINOPHILS ABSOLUTE COUNT (BEAKER) (test 0.20 K/ L 0.00-0.50 lfax=953) BASOPHILS ABSOLUTE COUNT (BEAKER) (test 0.00 K/ L 0.00-0.20 wfgh=047) POCT-GLUCOSE [id number] 20:56:00 Test Item Value Reference Range Comments POC-GLUCOSE METER (BEAKER) 446 mg/dL 70-110 Notified KIRIT DALTON/TESTED AT [facility] (test mnap=9598) [address] [facility] [id number]
--- OUTSIDE RECORDS SUMMARY | 2018-08-15 15:08 | XMS REPORT | Summary of Care ---
:1965 Author Organization [facility] Address [address] [place] [address]- Encounter HQ Raine(FIN) [id number] Date(s): 02/25/17 - 02/26/17 [facility] [address] [place] [address]- [place] [phone] Discharge Diagnosis: Acute Hyperglycemia Discharge Diagnosis: Fever Discharge Disposition: Home or Self Care Attending Physician: Rudolph Astorga MD Vital Signs Most recent to oldest 1 2 3 [Reference Range]: Height 162.56 cm (02/25/17 6:55 PM) Temperature Oral 97.6 DegF 98.8 DegF [96.4-99.1 DegF] (02/26/17 12:50 AM) (02/25/17 6:55 PM) Blood Pressure 111/64 mmHg 114/66 mmHg 109/65 mmHg [90-140/60-90 mmHg] (02/26/17 12:50 AM) (02/25/17 10:30 PM) (02/25/17 6:55 PM) Respiratory Rate [14-20 16 BRMIN 16 BRMIN 14 BRMIN BRMIN] (02/26/17 12:50 AM) (02/25/17 10:30 PM) (02/25/17 6:55 PM) Peripheral Pulse Rate 85 bpm 82 bpm 84 bpm [60-100 bpm] (02/26/17 12:50 AM) (02/25/17 10:30 PM) (02/25/17 6:55 PM) Weight 49.545 kg (02/25/17 6:55 PM) Body Mass Index 18.75 m2 (02/25/17 6:55 PM) Problem List Condition Effective Dates Status Health Status Informant Abdominal pain(Confirmed) Active Chest pain(Confirmed)(Stable) Active Diabetes mellitus(Confirmed) Active Hyperglycemia(Confirmed) Active UTI - Urinary tract Active infection(Confirmed) Restless leg syndrome(Confirmed) Active Allergies, Adverse Reactions, Alerts Substance Reaction Severity Status Ritalin Active NKDA1 Active 1Pt has no food allergy Medications GI cocktail 30 mL, Route: PO, Drug Form: SUSP, Dosing Weight 49.545, kg, ONCE, STAT, Start date: 02/25/17 23:06:00 PHARMACY AFFAIRS ASSISTANT, Stop date: 02/25/17 23:06:00 PHARMACY AFFAIRS ASSISTANT Notes: G.I. Cocktail=antacid with simethicone 22.5 mL - lidocaine viscous 7.5 mL Start Date: 02/25/17 Stop Date: 02/26/17 Status: CompletedInsulin regular 10 unit, 0.1 mL, Route: SUB-Q, Drug form: SOLN, ONCE, Dosing Weight 49.545, kg, Priority: STAT, Start date: 02/25/17 20:23:00 PHARMACY AFFAIRS ASSISTANT, Stop date: 02/25/17 20:23:00 PHARMACY AFFAIRS ASSISTANT Notes: (Same as: Humulin R) Roll in palms of hands gently; Do not shake vigorously. "single patientuse only"(Restricted to patients requiring a dose &gt ; 60 units)WASTE: F/P - Black; E - Municipal Trash Bin Stable for 28 days at room temperatureExpires in days from Date Start Date: 02/25/17 Stop Date: 02/25/17 Status: Completedlidocaine 1% 1 mL, Route: SUB-Q, Drug Form: INJ, Dosing Weight 49.545, kg, ONCE, STAT, Start date: 02/25/17 20:33:00 PHARMACY AFFAIRS ASSISTANT, Stop date: 02/25/17 20:33:00 PHARMACY AFFAIRS ASSISTANT Notes: Preservative free. (Same as: Xylocaine MPF) Start Date: 02/25/17 Stop Date: 02/25/17 Status: Orderedmorphine Sulfate 4 mg, 1 mL, Route: IVP, Drug form: INJ, ONCE, Dosing Weight 49.545, kg, Priority : STAT, Start date: 02/25/17 20:34:00 PHARMACY AFFAIRS ASSISTANT, Stop date: 02/25/17 20:34:00 PHARMACY AFFAIRS ASSISTANT Notes: (Same as:MORPhine Sulfate) Start Date: 02/25/17 Stop Date: 02/25/17 Status: CompletedSodium Chloride 0.9% (Bolus) IV 2,000 mL, 1000 ml/hr, Infuse Over: 2 hr, Route: IV, 2,000, Drug form: INJ, ONCE , Priority: STAT, Dosing Weight 49.545 kg, Start date: 02/25/17 20:22:00 PHARMACY AFFAIRS ASSISTANT, Stop date: 02/25/17 20:22:00 PHARMACY AFFAIRS ASSISTANT Start Date: 02/25/17 Stop Date: 02/25/17 Status: CompletedZofran 4 mg, 2 mL, Route: IVP, Drug form: INJ, ONCE, Dosing Weight 49.545, kg, Priority : STAT, Start date: 02/25/17 20:34:00 PHARMACY AFFAIRS ASSISTANT, Stop date: 02/25/17 20:34:00 PHARMACY AFFAIRS ASSISTANT Notes: (Same as: Zofran) MEDICATION WASTE Product Size: 4 mgProduct Wasted: ___ mg Start Date: 02/25/17 Stop Date: 02/25/17 Status: CompletedZofran 4 mg, 2 mL, Route: IVP, Drug form: INJ, ONCE, Dosing Weight 49.545, kg, Priority : STAT, Start date: 02/25/17 22:41:00 PHARMACY AFFAIRS ASSISTANT, Stop date: 02/25/17 22:41:00 PHARMACY AFFAIRS ASSISTANT Notes: (Same as: Zofran) MEDICATION WASTE Product Size: 4 mgProduct Wasted: ___ mg Start Date: 02/25/17 Stop Date: 02/25/17 Status: Completed Results ELECTROLYTES Most recent to oldest [Reference Range]: 1 2 Sodium Lvl [135-145 mEq/L] 130 mEq/L *LOW* (02/25/17 7:42 PM) Potassium Lvl [3.5-5.1 mEq/L] 4.3 mEq/L (02/25/17 7:42 PM) Chloride Lvl [95-109 mEq/L] 97 mEq/L (02/25/17 7:42 PM) CO2 [24-32 mEq/L] 26 mEq/L (02/25/17 7:42 PM) AGAP [10.0-20.0 mEq/L] 11.3 mEq/L (02/25/17 7:42 PM) CHEM PANEL Most recent to oldest [Reference Range]: 1 2 Creatinine Lvl [0.50-1.40 mg/dL] 0.70 mg/dL (02/25/17 7:42 PM) eGFR 101 mL/min/1.73m2 1 *NA* (02/25/17 7:42 PM) BUN [7-22 mg/dL] 16 mg/dL (02/25/17 7:42 PM) B/C Ratio [6-25] 23 (02/25/17 7:42 PM) Glucose Lvl [70-99 mg/dL] 340 mg/dL *HI* (02/25/17 7:42 PM) Total Protein [6.4-8.4 g/dL] 8.2 g/dL (02/25/17 7:42 PM) Albumin Lvl [3.5-5.0 g/dL] 3.9 g/dL (02/25/17 7:42 PM) Globulin [2.7-4.2 g/dL] 4.3 g/dL *HI* (02/25/17 7:42 PM) A/G Ratio [0.7-1.6] 0.9 (02/25/17 7:42 PM) Calcium Lvl [8.5-10.5 mg/dL] 8.9 mg/dL (02/25/17 7:42 PM) ALT [0-65 unit/L] 17 unit/L (02/25/17 7:42 PM) AST [0-37 unit/L] 16 unit/L (02/25/17 7:42 PM) Alk Phos [39-136 unit/L] 158 unit/L *HI* (02/25/17 7:42 PM) Bili Total [0.2-1.3 mg/dL] 0.3 mg/dL (02/25/17 7:42 PM) Lactic Acid Lvl [0.5-2.2 mMol/L] 1.8 mMol/L (02/25/17 7:42 PM) 1Result Comment: The eGFR is calculated using the CKD-EPI formula. In most young , healthy individualsthe eGFR will be >90 mL/min/1.73m2. The eGFR declines with age. An eGFR of 60-89 may be normal insome populations, particularly the elderly, for whom the [...] eGFR should be multiplied by the estimated BMI.URINE AND STOOL Most recent to oldest [Reference Range]: 1 2 UA Turbidity [Clear] Slight Cloudy (02/25/17 7:42 PM) UA Color [Yellow] Yellow *NA* (02/25/17 7:42 PM) UA pH [5.0-8.0] 6.0 (02/25/17 7:42 PM) UA Spec Grav [<=1.030] 1.010 (02/25/17 7:42 PM) UA Glucose [Negative mg/dL] >=1000 mg/dL *ABN* (02/25/17 7:42 PM) UA Blood [Negative] Negative (02/25/17 7:42 PM) UA Ketones [Negative] Negative *NA* (02/25/17 7:42 PM) UA Protein [Negative] Negative (02/25/17 7:42 PM) UA Urobilinogen [0.1-1.0 EU/dL] 0.2 EU/dL (02/25/17 7:42 PM) UA Bili [Negative] Negative *NA* (02/25/17 7:42 PM) UA Leuk Est [Negative] Negative (02/25/17 7:42 PM) UA Nitrite [Negative] Negative (02/25/17 7:42 PM) UA WBC [None Seen /HPF] 0-2 /HPF (02/25/17 7:42 PM) UA RBC [0-2 /HPF] 0-2 /HPF (02/25/17 7:42 PM) UA Bacteria [None Seen /HPF] Many /HPF (02/25/17 7:42 PM) UA Sq Epi [Few /LPF] Few /LPF (02/25/17 7:42 PM) BODY FLUIDS Most recent to oldest [Reference Range]: 1 2 Glucose CSF [45-80 mg/dL] 219 mg/dL 1 *HI* (02/25/17 9:02 PM) Protein CSF [15-45 mg/dL] 55 mg/dL *HI* (02/25/17 9:02 PM) Tube Num CSF 1 4 *NA* *NA* (02/25/17 9:02 PM) (02/25/17 9:02 PM) Color CSF [Colorless] Colorless Colorless (02/25/17 9:02 PM) (02/25/17 9:02 PM) Clarity CSF [Clear] Clear Clear (02/25/17 9:02 PM) (02/25/17 9:02 PM) Supernat CSF [Colorless] Colorless Colorless (02/25/17 9:02 PM) (02/25/17 9:02 PM) RBC CSF [0-0 /mm3] 1 /mm3 1 /mm3 *HI* *HI* (02/25/17 9:02 PM) (02/25/17 9:02 PM) WBC CSF [0-5 /mm3] 2 /mm3 2 /mm3 (02/25/17 9:02 PM) (02/25/17 9:02 PM) 1Result Comment: Critical Result(s) called to Charlotte Hodge at _02/25/2017 21: 45 bybz_. Read back OK. NOTE: RESULTS autoverfiedIMMUNOLOGY Most recent to oldest [Reference Range]: 1 2 VDRL Scr CSF [Non Reactive] Non Reactive (02/25/17 9:02 PM) HEMATOLOGY Most recent to oldest [Reference Range]: 1 2 WBC [3.7-10.4 K/CMM] 7.1 K/CMM (02/25/17 7:42 PM) RBC [4.20-5.40 M/CMM] 4.52 M/CMM (02/25/17 7:42 PM) Hgb [12.0-16.0 g/dL] 12.5 g/dL (02/25/17 7:42 PM) Hct [36.0-48.0 %] 37.1 % (02/25/17 7:42 PM) MCV [80.0-98.0 fL] 82.2 fL (02/25/17 7:42 PM) MCH [27.0-31.0 pg] 27.6 pg (02/25/17 7:42 PM) MCHC [32.0-36.0 g/dL] 33.6 g/dL (02/25/17 7:42 PM) RDW [11.5-14.5 %] 14.1 % (02/25/17 7:42 PM) Platelet [133-450 K/CMM] 305 K/CMM (02/25/17 7:42 PM) MPV [7.4-10.4 fL] 7.4 fL (02/25/17 7:42 PM) Segs [45.0-75.0 %] 53.4 % (02/25/17 7:42 PM) Lymphocytes [20.0-40.0 %] 39.1 % (02/25/17 7:42 PM) Monocytes [2.0-12.0 %] 5.3 % (02/25/17 7:42 PM) Eosinophils [0.0-4.0 %] 1.4 % (02/25/17 7:42 PM) Basophils [0.0-1.0 %] 0.8 % (02/25/17 7:42 PM) Segs-Bands # [1.5-8.1 K/CMM] 3.8 K/CMM (02/25/17 7:42 PM) Lymphocytes # [1.0-5.5 K/CMM] 2.8 K/CMM (02/25/17 7:42 PM) Monocytes # [0.0-0.8 K/CMM] 0.4 K/CMM (02/25/17 7:42 PM) Eosinophils # [0.0-0.5 K/CMM] 0.1 K/CMM (02/25/17 7:42 PM) Basophils # [0.0-0.2 K/CMM] 0.1 K/CMM (02/25/17 7:42 PM) MOLECULAR DIAGNOSTIC Most recent to oldest [Reference Range]: 1 2 Source HSV Cerebral Spinal Fluid *NA* (02/25/17 9:02 PM) HSV 1 by PCR [Negative] Negative 1 (02/25/17 9:02 PM) HSV 2 by PCR [Negative] Negative 2 (02/25/17 9:02 PM) 1Result Comment: This sample was NON DETECTED or BELOW THE LOWER LIMITS OF DETECTION for HSV 1/2 DNA by real-time PCR using hybridization probe and melting curve analysis.2Result Comment: This sample was NON DETECTED or BELOW THE LOWER LIMITS OF DETECTION for HSV 1/2 DNA by real-time PCR using hybridization probe and melting curve analysis.BACTERIAL - SEROLOGY Most recent to oldest [Reference Range]: 1 2 Source Strep Cerebral Spinal Fluid *NA* (02/25/17 9:02 PM) Strep pneumoniae Ag [Negative] Negative (02/25/17 9:02 PM) FUNGAL - SEROLOGY Most recent to oldest [Reference Range]: 1 2 Crypto Ag CSF [Negative] Negative (02/25/17 9:02 PM) VIRAL - SEROLOGY Most recent to oldest [Reference Range]: 1 2 Influ A [Negative] Negative (02/25/17 7:42 PM) Influ B [Negative] Negative (02/25/17 7:42 PM) Enterovirus PCR CSF [Negative] Negative (02/25/17 9:02 PM) Immunizations No data available for this [...]
[2018-08-15] MEDS ORDERED: NA CHLORIDE 0.9% 1,000 ML ONE ×2 (15:43→17:29)
[2018-08-15 15:45] LABS: Absolute Lymphocytes (CBC) 1.5 K/uL (0.7-4.9); Absolute Monocytes 0.7 K/uL (0.1-1.3); Absolute Neutrophil 5.1 K/uL (1.8-8.0); Basophils % 1.1 % (0-1.3); Eosinophils % 0.2 % (0-4.4); Hematocrit 35.9 % (36.0-45.0); Lymphocytes % 19.9 % (15.3-44.8); MPV 8.2 fL (7.6-11.3); Monocytes % 9.5 % (3.3-12.3)
[2018-08-15 16:08] LABS: Urine Bacteria >50 /HPF (<20); Urine Culture Reflex Order REFLEXED; Urine RBC <5 /HPF (NONE SEEN)
[2018-08-15 16:11] LABS: BUN Blood Urea Nitrogen 26 mg/dL (7-18); Bicarbonate 24 mmol/L (21-32); Potassium 3.9 mmol/L (3.5-5.1); Sodium Level 128 mmol/L (136-145)
[2018-08-15 16:13] LABS: Glucose Level 595 mg/dL (74-106)
[2018-08-15] MEDS ORDERED: ACETAMINOPHEN 325 MG TABLET ONE (16:15)
[2018-08-15 16:32] LABS: Arterial Blood Carboxyhemoglob 1.5 % (0-1.5); Blood Gas Oxyhemoglobin 93.6 % (94-97)
[2018-08-15] MEDS ORDERED: INSULIN -REGULAR HUMAN 50 UNIT/0.5 ML ML ONE (16:42)
[2018-08-15] MEDS ORDERED: CEFTRIAXONE/SWI 1gm 1 GM/10 ML SYR ONE (16:49)
--- NOTE | 2018-08-15 18:30 | EDPHYS ---
Physician Documentation [facility] Name: Melissa De Oliveira Age: 52 yrs Sex: Female : 1965 Arrival Date: 08/15/2018 Time: 14:43 Bed 27 Private MD: ED Physician Yves Varghese HPI: 08/15 15:54 This 52 yrs old Female presents to ER via Ambulatory with complaints of kb Fever, Headache, Ear Pain. 15:54 The patient presents with pain, moderate. The complaints affect the right ear. Onset: kb The symptoms/episode began/occurred yesterday. Modifying factors: The symptoms are alleviated by nothing, the symptoms are aggravated by nothing. Associated signs and symptoms: Pertinent positives: fever. Severity of symptoms: At their worst the symptoms were moderate in the emergency department the symptoms are unchanged. The patient has not experienced similar symptoms in the past. The patient has not recently seen a physician. Pt c/o right ear pain, right eye redness, drainage and swelling, headache and fever. Symptoms began yesterday. Also requests her sugar be checked. TOUR LEADER: 15:00 LMP N/A - Hysterectomy ca1 Historical: - Allergies: 14:52 Ritalin; sg 14:52 Tramadol HCl; sg 14:52 Codeine; sg - Home Meds: 14:52 Lantus Sub-Q [Active]; Requip Oral [Active]; gabapentin oral oral [Active]; sg - PMHx: 14:52 Diabetes - IDDM; sg - PSHx: 14:52 Cholecystectomy; Hysterectomy; Appendectomy; ; sg - Immunization history:: Adult Immunizations up to date. - Social history:: Smoking status: Patient/guardian denies using tobacco. - Ebola Screening: : Patient negative for fever greater than or equal to 101.5 degrees Fahrenheit, and additional compatible Ebola Virus Disease symptoms Patient denies exposure to infectious person Patient denies travel to an Ebola-affected area in the 21 days before illness onset No symptoms or risks identified at this time. ROS: 15:52 Neck: Negative for injury, pain, and swelling, Cardiovascular: Negative for chest pain, kb palpitations, and edema, Respiratory: Negative for shortness of breath, cough, wheezing, and pleuritic chest pain, Abdomen/GI: Negative for abdominal pain, nausea, vomiting, diarrhea, and constipation, MS/Extremity: Negative for injury and deformity, Skin: Negative for injury, rash, and discoloration. 15:52 Constitutional: Positive for body aches, chills, fatigue, fever, malaise, Negative for poor PO intake, weight loss. 15:52 Eyes: Positive for redness, swelling. 15:52 ENT: Positive for ear pain. 15:52 Neuro: Positive for headache. Exam: 15:52 Constitutional: This is a well developed, well nourished patient who is awake, alert, kb and in no acute distress. Head/Face: Normocephalic, atraumatic. Chest/axilla: Normal chest wall appearance and motion. Nontender with no deformity. No lesions are appreciated. Cardiovascular: Regular rate and rhythm with a normal S1 and S2. No gallops, murmurs, or rubs. Normal PMI, no JVD. No pulse deficits. Respiratory: Lungs have equal breath sounds bilaterally, clear to auscultation and percussion. No rales, rhonchi or wheezes noted. No increased work of breathing, no retractions or nasal flaring. Abdomen/GI: Soft, non-tender, with normal bowel sounds. No distension or tympany. No guarding or rebound. No evidence of tenderness throughout. Skin: Warm, dry with normal turgor. Normal color with no rashes, no lesions, and no evidence of cellulitis. MS/ Extremity: Pulses equal, no cyanosis. Neurovascular intact. Full, normal range of motion. Neuro: Awake and alert, GCS 15, oriented to person, place, time, and situation. Cranial nerves II-XII grossly intact. Motor strength 5/5 in all extremities. Sensory grossly intact. Cerebellar exam normal. Normal gait. 15:52 Eyes: Conjunctiva: injected, in the right eye. 15:52 ENT: External ear(s): are unremarkable, Ear canal(s): are normal, TM's: are normal, Nose: is normal, Mouth: is normal, Posterior pharynx: Airway: normal, no evidence of obstruction, patent, Tonsils: bilaterally enlarged, with erythema, with exudate, Uvula: normal, midline, swelling, that is mild, erythema, that is mild, exudate, that is mild. Vital Signs: 14:50 BP 138 / 82; Pulse 104; Resp 18; Temp 99.0; Pulse Ox 100% on R/A; Weight 45.36 kg (R); sg Pain 7/10; 15:57 BP 121 / 75; Pulse 96; Resp 17 S; Temp 99(O); Pulse Ox 100% on R/A; ca1 16:40 BP 130 / 74; Pulse 94; Resp 18 S; Temp 99(O); Pulse Ox 99% on R/A; ca1 16:54 BP 130 / 74; Pulse 94; Resp 17; Pulse Ox 98% ; rv 17:36 BP 102 / 65; Pulse 86; Resp 17 S; Pulse Ox 99% on R/A; ca1 18:42 BP 100 / 61; Pulse 78; Resp 17; Pulse Ox 99% ; rv MDM: 14:45 Patient medically screened. kb 15:53 Data reviewed: vital signs, nurses notes. Data interpreted: Pulse oximetry: on room air kb is 100 %. Interpretation: normal. 16:44 ED course: Corrected sodium 136. kb 17:11 Counseling: I had a detailed discussion with the patient and/or guardian regarding: the kb historical points, exam findings, and any diagnostic results supporting the discharge/admit diagnosis, lab results, the need for outpatient follow up, a family practitioner, to return to the emergency department if symptoms worsen or persist or if there are any questions or concerns that arise at home. 08/15 15:12 Order name: Flu kb 08/15 15:12 Order name: Strep kb 08/15 15:12 Order name: Influenza Screen (A ; Complete Time: 16:01 EDMS 08/15 15:12 Order name: Group A Streptococcus Rapid Sc; Complete Time: 15:52 EDMS 08/15 15:16 Order name: CBC with Diff kb 08/15 15:16 Order name: Basic Metabolic Panel; Complete Time: 16:14 kb 08/15 15:16 Order name: Acetone, Serum; Complete Time: 16:14 kb 08/15 15:16 Order name: CBC with Automated Diff; Complete Time: 15:50 EDMS 08/15 15:16 Order name: Glucose, Ancillary Testing; Complete Time: 15:19 EDMS 08/15 15:42 Order name: Urine Microscopic Only; Complete Time: 16:12 ca1 08/15 15:49 Order name: Urine Dipstick--Ancillary (enter results) ms 08/15 15:52 Order name: Throat Culture EDSC 08/15 16:09 Order name: Urine Culture EDSC 08/15 16:16 Order name: ABG; Complete Time: 16:43 kb 08/15 15:12 Order name: Blood Glucose Level; Complete Time: 15:28 kb 08/15 15:16 Order name: IV Start; Complete Time: 15:28 kb 08/15 15:16 Order name: Urine Dipstick-Ancillary (obtain specimen); Complete Time: 15:43 kb 08/15 17:14 Order name: Glucose, Ancillary Testing; Complete Time: 17:21 EDMS 08/15 18:05 Order name: Glucose, Ancillary Testing; Complete Time: 19:07 EDMS Administered Medications: 15:28 Drug: NS 0.9% 1000 ml Route: IV; Rate: 1000 ml; Site: right antecubital; ca1 18:42 Follow up: IV Status: Completed infusion; IV Intake: 1000ml rv 16:04 Drug: Tylenol 650 mg Route: PO; ca1 16:40 Follow up: Response: No adverse reaction; Pain is decreased ca1 16:30 Drug: Insulin Regular Human 10 units {Co-Signature: rv (Tom Vega RN).} Route: ca1 IVP; Site: right antecubital; 17:23 Follow up: Response: No adverse reaction; Blood sugar is lowered ca1 16:33 Drug: Insulin Regular Human 10 units {Co-Signature: rv (Tom Vega RN).} Route: ca1 Sub-Q; Site: right lower abdomen; 17:23 Follow up: Response: No adverse reaction; Blood sugar is lowered ca1 16:35 Drug: Rocephin 1 grams Route: IV; Rate: calculated rate; Site: right antecubital; ca1 17:22 Follow up: Response: No adverse reaction; IV Status: IVP per pharmacy protocol ca1 17:15 Drug: NS 0.9% 1000 ml Route: IV; Rate: 1000 ml; Site: right antecubital; ca1 18:42 Follow up: IV Status: Completed infusion; IV Intake: 1000ml rv Point of Care Testing: Blood Glucose: 17:10 Blood Glucose: 420 mg/dL; lt1 18:04 Blood Glucose: 277 mg/dL; ca1 Ranges: Critical Glucose Levels:Adult <50 mg/dl or >400 mg/dl <40 mg/dl or >180 mg/dl Disposition: 22:17 Co-signature as Attending Physician, Yves Varghese MD Available for consultation at ps1 all times . Disposition: 08/15/18 18:29 Discharged to Home. Impression: Hyperglycemia, unspecified, Urinary tract infection, site not specified, Acute pharyngitis, Conjunctivitis. - Condition is Stable. - Discharge Instructions: Urinary Tract Infection, Adult, Greq-an-Ejql, Pharyngitis, Wwbv-dv-Cewi, Bacterial Conjunctivitis, Xuwf-bf-Ukfj, Hyperglycemia, Pefl-br-Gnai. - Prescriptions for Augmentin 875- 125 mg Oral Tablet - take 1 tablet by ORAL route every 12 hours for 10 days; 20 tablet. Erythromycin 5 mg/gram (0.5 %) Ophthalmic Ointment - apply 1 centimeter by OPHTHALMIC route 2-3 times daily for 7 days; 1 tube. - Medication Reconciliation Form, Thank You Letter, Antibiotic Education, Prescription Opioid Use form. - Follow up: Emergency Department; When: As needed; Reason: Worsening of condition. Follow up: Private Physician; When: 2 - 3 days; Reason: Recheck today's complaints, Continuance of care, Re-evaluation by your physician. - Problem is new. - Symptoms have improved. Signatures: Dispatcher [employer] EDMS Milvia Singh, DEISY-C POLICE AND FIRE DISPATCHER-[place]l [place], KIRIT RN sg Ari Agee, [place] PORTABLE GRINDING MACHINE OPERATOR pm1 Yves Varghese MD MD ps1 Vicente, Ronaldo, RN RN rv Acob, Cheryl, RN RN ca1 Tom veliz Corrections: (The following items were deleted from the chart) 18:43 18:29 08/15/2018 18:29 Discharged to Home. Impression: Hyperglycemia, unspecified; rv Urinary tract infection, site not specified; Acute pharyngitis; Conjunctivitis. Condition is Stable. Discharge Instructions: Urinary Tract Infection, Adult, Xxnz-mz-Dzef, Pharyngitis, Axpi-rb-Tsoc, Bacterial Conjunctivitis, Zwku-kz-Khoq, Hyperglycemia, Ojnh-nn-Snbp. Prescriptions for Augmentin 875-125 mg Oral Tablet - take 1 tablet by ORAL route every 12 hours for 10 days; 20 tablet, Erythromycin 5 mg/gram (0.5 %) Ophthalmic Ointment - apply 1 centimeter by OPHTHALMIC route 2-3 times daily for 7 days; 1 tube. and Forms are Medication Reconciliation Form, Thank You Letter, Antibiotic Education, Prescription Opioid Use. Follow up: Emergency Department; When: As needed; Reason: Worsening of condition. Follow up: Private Physician; When: 2 - 3 days; Reason: Recheck today's complaints, Continuance of care, Re-evaluation by your physician. Problem is new. Symptoms have improved. pm1
--- NOTE | 2018-08-15 18:30 | ER ---
Nurse's Notes [facility] Name: Melissa De Oliveira Age: 52 yrs Sex: Female : 1965 Arrival Date: 08/15/2018 Time: 14:43 Bed 27 Private MD: Diagnosis: Hyperglycemia, unspecified;Urinary tract infection, site not specified;Acute pharyngitis;Conjunctivitis Presentation: 08/15 14:49 Presenting complaint: Patient states: Headache in frontal area with sinus pain and sg nasal congestion as well as nasal drainage, reports having Right ear pain, and fever off and on. Transition of care: patient was not received from another setting of care. Onset of symptoms was August 15, 2018. Risk Assessment: Do you want to hurt yourself or someone else?. Initial Sepsis Screen: Does the patient meet any 2 criteria? No. Patient's initial sepsis screen is negative. Does the patient have a suspected source of infection? No. Patient's initial sepsis screen is negative. Care prior to arrival: None. 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 - Social history:: Smoking status: Patient/guardian denies using tobacco. - Ebola Screening: : Patient negative for fever greater than or equal to 101.5 degrees Fahrenheit, and additional compatible Ebola Virus Disease symptoms Patient denies exposure to infectious person Patient denies travel to an Ebola-affected area in the 21 days before illness onset No symptoms or risks identified at this time. Screenin:52 Abuse screen: Denies threats or abuse. Denies injuries from another. Nutritional ca1 screening: No deficits noted. Tuberculosis screening: No symptoms or risk factors identified. Fall Risk None identified. Assessment: 14:52 General: Appears in no apparent distress. ill, Behavior is calm, cooperative, ca1 appropriate for age. Pain: Complains of pain in right ear and scalp Pain radiates to right jaw Pain currently is 6 out of 10 on a pain scale. Pain began 2-3 days ago. Neuro: Level of Consciousness is awake, alert, obeys commands, Oriented to person, place, time, situation. Cardiovascular: Heart tones S1 S2 present Capillary refill < 3 seconds Patient's skin is warm and dry. Respiratory: Airway is patent Respiratory effort is even, unlabored, Respiratory pattern is regular, symmetrical, GI: Abdomen is flat, non-distended, Bowel sounds present X 4 quads. Abd is soft and non tender X 4 quads. : No deficits noted. No signs and/or symptoms were reported regarding the genitourinary system. EENT: Ear canal clear on left ear and right ear Reports nasal congestion since . Derm: Skin is intact, is healthy with good turgor, Skin is pink, warm \T\ dry. Musculoskeletal: Circulation, motion, and sensation intact. Capillary refill < 3 seconds. 15:48 Reassessment: Patient appears in no apparent distress at this time. Patient and/or ca1 family updated on plan of care and expected duration. Pain level reassessed. Patient is alert, oriented x 3, equal unlabored respirations, skin warm/dry/pink. 16:40 Reassessment: Patient appears in no apparent distress at this time. Patient and/or ca1 family updated on plan of care and expected duration. Pain level reassessed. Patient is alert, oriented x 3, equal unlabored respirations, skin warm/dry/pink. 17:36 Reassessment: Patient appears in no apparent distress at this time. Patient and/or ca1 family updated on plan of care and expected duration. Pain level reassessed. Patient is alert, oriented x 3, equal unlabored respirations, skin warm/dry/pink. Vital Signs: 14:50 BP 138 / 82; Pulse 104; Resp 18; Temp 99.0; Pulse Ox 100% on R/A; Weight 45.36 kg (R); sg Pain 7/10; 15:57 BP 121 / 75; Pulse 96; Resp 17 S; Temp 99(O); Pulse Ox 100% on R/A; ca1 16:40 BP 130 / 74; Pulse 94; Resp 18 S; Temp 99(O); Pulse Ox 99% on R/A; ca1 16:54 BP 130 / 74; Pulse 94; Resp 17; Pulse Ox 98% ; rv 17:36 BP 102 / 65; Pulse 86; Resp 17 S; Pulse Ox 99% on R/A; ca1 18:42 BP 100 / 61; Pulse 78; Resp 17; Pulse Ox 99% ; rv ED Course: 14:43 Patient arrived in ED. mr 14:45 Montse Doyle RN is Primary Nurse. ca1 14:45 Milvia Singh FNP-C is PHCP. kb 14:45 Yves Varghese MD is Attending Physician. kb 14:50 Triage completed. sg 14:53 Arm band placed on. sg 14:54 Patient has correct armband on for positive identification. Bed in low position. Call ca1 light in reach. Side rails up X 1. Pulse ox on. NIBP on. Warm blanket given. 15:20 Inserted saline lock: 22 gauge in right antecubital area, using aseptic technique. ca1 ,using aseptic technique. by Tom Vega RN Blood collected. 15:43 Urine collected: clean catch specimen, cloudy, Amount Voided: 80mL. ca1 17:22 PHCP role handed off by Milvia Singh FNP-C pm1 17:22 Ari Agee NP is PHCP. pm1 18:43 No provider procedures requiring assistance completed. IV discontinued, intact, rv bleeding controlled, No redness/swelling at site. Pressure dressing applied. Administered Medications: 15:28 Drug: NS 0.9% 1000 ml Route: IV; Rate: 1000 ml; Site: right antecubital; ca1 18:42 Follow up: IV Status: Completed infusion; IV Intake: 1000ml rv 16:04 Drug: Tylenol 650 mg Route: PO; ca1 16:40 Follow up: Response: No adverse reaction; Pain is decreased ca1 16:30 Drug: Insulin Regular Human 10 units {Co-Signature: keren (Tom Vega RN).} Route: ca1 IVP; Site: right antecubital; 17:23 Follow up: Response: No adverse reaction; Blood sugar is lowered ca1 16:33 Drug: Insulin Regular Human 10 units {Co-Signature: keren (Tom Vega RN).} Route: ca1 Sub-Q; Site: right lower abdomen; 17:23 Follow up: Response: No adverse reaction; Blood sugar is lowered ca1 16:35 Drug: Rocephin 1 grams Route: IV; Rate: calculated rate; Site: right antecubital; ca1 17:22 Follow up: Response: No adverse reaction; IV Status: IVP per pharmacy protocol ca1 17:15 Drug: NS 0.9% 1000 ml Route: IV; Rate: 1000 ml; Site: right antecubital; ca1 18:42 Follow up: IV Status: Completed infusion; IV Intake: 1000ml rv Point of Care Testing: Blood Glucose: 17:10 Blood Glucose: 420 mg/dL; lt1 18:04 Blood Glucose: 277 mg/dL; ca1 Ranges: Intake: 18:42 IV: 1000ml; Total: 1000ml. rv 18:42 IV: 1000ml; Total: 2000ml. rv Outcome: 18:29 Discharge ordered by MD. pm1 18:43 Discharged to home ambulatory. rv 18:43 Condition: good 18:43 Discharge instructions given to patient, Instructed on discharge instructions, follow up and referral plans. medication usage, Demonstrated understanding of instructions, follow-up care, medications, Prescriptions given X 2. 18:43 Patient left the ED. rv Addendum: 08/18/2018 08:07 Addendum: Culture Results: Positive urine culture. No further action required. Bacteria a a5 sensitive to prescribed antibiotic. Signatures: Milvia Singh, THREAD PULLING MACHINE ATTENDANT-C THREAD PULLING MACHINE ATTENDANT-Ckb Dl Joseph, RN KIRIT Silvina Stephen, Julisa, RN KIRIT aa5 Ari Agee, STONECUTTER APPRENTICE HAND STONECUTTER APPRENTICE HAND pm1 Tom Vega RN RN rv Montse Doyle RN RN [facility] Kim Ellisah lt1 Tom Vega RN rv Corrections: (The following items were deleted from the chart) 08/15 15:01 14:52 EENT: Ear canal clear on left ear and right ear ca1 ca1 17:22 17:21 Response: No adverse reaction; Blood sugar is lowered; IV Status: IVP per ca1 pharmacy protocol ca1
[2018-08-15 19:22] VITALS: TEMP 99
[2018-08-15 19:26] VITALS: O2SAT 99
[2018-08-15 19:27] VITALS: BP 100/61
[2018-08-15 20:23] LABS: Urine Blood TRACE (NEG); Urine Glucose 3+ (NEG); Urine Protein NEGATIVE (NEG); Urine Specific Gravity <1.005 (1.005-1.030); Urine pH 5.5 (5.0-7.0)
== END 2018-08-15 18:43 | disposition home or self-care (01) ==
LOC: ER 14:41
DX: E11.65 Type 2 diabetes mellitus with hyperglycemia (principal); N39.0 Urinary tract infection, site not specified; J02.9 Acute pharyngitis, unspecified; H10.9 Unspecified conjunctivitis; Z79.4 Long term (current) use of insulin; Z88.5 Allergy status to narcotic agent; Z88.8 Allergy status to other drugs, medicaments and biological substances
CPT/HCPCS: 36415; 80048; 81003; 81015; 82010; 82805; 82962; 85025; 87070; 87077; 87081; 87086; 87088; 87186; 87804; 96361; 96365; 96372; 96375; 99284; J0696; J7030

== ENCOUNTER 2018-10-02 18:16 | Emergency (ER) | payer SELFPAY ==
--- OUTSIDE RECORDS SUMMARY | 2018-10-02 18:19 | XMS REPORT | Clinical Summary ---
:1965 Author Organization [facility] Address [address] [place] [address] Care Team Providers Name Role Phone Denae [...] 50 MG capsule 3 (three) times daily. nitrofurantoin, Take 1 capsule (100 14 capsule [...] sprain, initial encounter (Primary Dx); 10/07/2017 MD Bhavik Hyperglycemia without ketosis; Acute cystitis without hematuria; Non-intractable vomiting with nausea, unspecified vomiting type after 10/01/2017 Social History Tobacco Use Types Packs/Day Years [...] procedure are in the results section. after 10/01/2017 Results EKG-SCANNED (10/08/2017 11:57 AM CDT) Narrative Performed At ED ECG Interpretation (10/07/2017 12:57 AM CDT) Narrative Performed At Princess Livingston MD 10/07/2017 12:57 AM ECG/EKG Interpretation Date/Time: 10/06/2017 10:19 PM Performed by: PRINCESS LIVINGSTON Authorized by: PRINCESS LIVINGSTON The ECG was interpreted by ED physician. This ECG was not compared with previous ECG(s).The ECG is interpreted as sinus rhythm. Rate is normal rate. Conduction: conduction normal. ST segments normal. T waves normal. [place] is normal. Other findings: no other findings. Clinical Impression: non-specific ECGECG reviewed and does not meet STEMI criteria. Patient tolerance: Patient tolerated the procedure well with no immediate complications POC-Glucose meter (10/07/2017 12:04 AM CDT)Only the most recent of2 resultswithin the time period is included. POC-Glucose Meter 277 (H)Comment: TESTED AT 70 - 110 mg/dL [facility] [address] [facility] [address] Specimen Blood Performing Organization Address City/State/Zipcode Phone Number [facility] [address] [place] [address] [phone] CENTER XR spine cervical 2 or 3 views (10/06/2017 11:07 PM CDT) Specimen Narrative Performed At FINAL REPORT [facility] RAD, SPINE, CERVICAL, 1 view. CLINICAL INDICATION:neck pain COMPARISON: None FINDINGS/IMPRESSION: A single lateral view of the cervical spine was obtained. The study is limited due to obliquity. Vertebral body height and and alignment is maintained. The intervertebral disc spaces are not well evaluated. There is no prevertebral soft tissue swelling. Signed: Kaity Grayson MD Report Verified Date/Time:10/06/2017 23:46:30 Reading Location: [address] Transitional Reading Room Procedure Note Interface, [...] Report Verified Date/Time: 10/06/2017 23:46:30 Reading Location: [address] Transitional Reading Room Performing Organization Address City/State/Zipcode Phone Number [facility] CT spine cervical without IV contrast (10/06/2017 10:44 PM CDT) Specimen Narrative Performed At FINAL REPORT [facility] CT cervical spine without contrast INDICATION: Emesis [...] MD Report Verified Date/Time:10/06/2017 23:44:40 Reading Location: [address] Transitional Reading Room Procedure Note Interface, [...] Report Verified Date/Time: 10/06/2017 23:44:40 Reading Location: [facility] [id number] Transitional Reading Room Performing Organization Address City/State/Zipcode Phone Number [facility] CT brain without IV contrast (10/06/2017 10:44 PM CDT) Specimen Narrative Performed At FINAL REPORT Cloudy Days [facility] EXAMINATIONNONCONTRAST HEAD CT SCAN CLINICAL [...] MD Report Verified Date/Time:10/06/2017 23:24:44 Reading Location: [address] Reading Room Procedure Note Interface, External [...] Report Verified Date/Time: 10/06/2017 23:24:44 Reading Location: [address] Reading Room Performing Organization Address City/State/[facility] Phone Number [facility] CBC with platelet count + automated diff (10/06/2017 10:17 PM CDT) WBC 10.9 (H) 4.0 - 10.0 K/L [...] # Baso 0.10 0.00 - 0.20 K/L [facility] Specimen Blood Performing Organization Address City/[facility]/Zipcode Phone Number [facility] [address] [place], [place] [phone] Troponin I (not available at [facility] [place]) (10/06/2017 10:17 PM CDT) Troponin I <0.03 0.00 - 0.15 ng/mL [facility] Specimen Blood Narrative Performed At [facility] Troponin I (TnI) levels must be [...] disease, and persistent tachyarrhythmia. Performing Organization Address City/State/Zipcode Phone Number [facility] [address] [place] [address] [phone] Amylase (10/06/2017 10:17 PM CDT) Amylase 58 30 - 110 U/L [facility] Specimen Blood Performing Organization Address City/[facility] Cent[facility] Phone Number [address] [address] Comprehensive metabolic panel (10/06/2017 10:17 PM CDT) Protein, Total 8.5 6.0 - 8.5 gm/dL [facility] Albumin 4.3 3.5 - 5.0 g/dL [facility] Alkaline Phosphatase 126 (H) 30 - 115 U/L [facility] Total Bilirubin 0.5 0.1 - 1.2 mg/dL [facility] Sodium 134 (L) 135 - 148 meq/L [facility] Potassium 4.3 3.6 - 5.5 meq/L [facility] Chloride 97 (L) 98 - 106 meq/L [facility] CO2 24 20 - 29 meq/L [facility] BUN 17 10 - 26 mg/dL [facility] Creatinine 1.01 0.50 - 1.20 mg/dL [facility] Glucose 414 (HH) 70 - 110 mg/dL [facility] Calcium 9.6 8.5 - 10.5 mg/dL [facility] AST 11 5 - 40 U/L [facility] ALT 9 5 - 50 U/L [facility] EGFR 58Comment: ESTIMATED GFR mL/min/1.73 sq m [facility] IS NOT ACCURATE CREATININE CLEARANCE IN PREDICTING GLOMERULAR FILTRATION RATE. ESTIMATED GFR IS NOT APPLICABLE FOR DIALYSIS PATIENTS. Specimen Blood Performing Organization Address [facility] Phone Number [address] [address] Urinalysis w/Microscopic (10/06/2017 9:49 PM CDT) Color, UA Yellow [facility] Clarity, UA Clear [facility] Specific [place], UA <=1.005 1.001 - 1.035 [facility] pH, UA 6.0 5.0 - 8.0 [facility] Protein, UA Negative Negative [facility] Glucose, UA >=1000 mg/dL (A) Negative [facility] Ketones, UA Negative Negative [facility] Bilirubin, UA Negative Negative [facility] Blood, UA Trace (A) Negative [facility] Nitrite, UA Positive (A) Negative [facility] Leukocytes, UA Negative Negative [facility] Urobilinogen, UA 0.2 0.2 - 1.0 mg/dL [facility] Bacteria, UA Many [facility] RBC, UA <5 /HPF [facility] WBC, UA 10-20 /HPF [facility] SQUAMOUS EPITHELIAL <5 /HPF [facility] Specimen Source [facility] Specimen Urine Performing Organization Address [facility] Number [facility] [address] [place] [phone] Urine culture (10/06/2017 9:49 PM CDT) Result >100,000 col/mL Escherichia coli (A) [facility] Specimen Urine Organism Antibiotic Method Susceptibility [...] + Sulfamethoxazole <=20: Susceptible Performing Organization Address [facility] Phone Number [facility] [address] [place] [phone] after 10/01/2017
--- OUTSIDE RECORDS SUMMARY | 2018-10-02 18:48 | XMS REPORT | CCD ---
:1965 Author Organization [facility] Care Team Providers Name Role Phone Sudhir [...]
--- OUTSIDE RECORDS SUMMARY | 2018-10-02 18:48 | XMS REPORT | CCD ---
:1965 Author Organization [facility] Team Providers Name Role Phone Cinthya Lee [...]
--- OUTSIDE RECORDS SUMMARY | 2018-10-02 18:48 | XMS REPORT | CCD ---
:1965 Author Organization [facility] Team Providers Name Role Phone Nava Orta Consulting Provider Unavailable JUSTO Huang Consulting Provider Unavailable Sophia Schafer Consulting Provider Unavailable Franny Ramsey Consulting Provider Francis Haney Consulting Provider Giovani Edwards Consulting Provider Trini Hinojosa Consulting Provider Unavailable Cinthya Lee Consulting Provider Juliana Scales Consulting Provider Unavailable Sumit David Consulting Provider [phone] Debbi Funez Consulting Provider Unavailable Halie Beck Consulting Provider Unavailable Yin Muhammad Consulting Provider [phone] Sudhir Castillo Consulting Provider Unavailable Dakota Radfodr Consulting Provider Crystal Hinojosa Consulting Provider Unavailable ChartServer, Login Consulting Provider Unavailable Delilah Dash Consulting Provider Unavailable Cherise Yu Consulting Provider Gisella Purdy Consulting Provider Unavailable Opal Funez Consulting Provider Unavailable Letha Gomez Consulting Provider Unavailable James Deleon Consulting Provider [phone] Kuldeep Stoddard Consulting Provider Conchita Barnes Consulting Provider Unavailable SYSTEM, SYSTEM Consulting Provider Unavailable Pablo Fisher Consulting Provider [phone] Amanda Fisher Consulting Provider Unavailable Dee Dee Lowry Consulting Provider [phone] Remi Paulson Consulting Provider Ellen Albarran Consulting Provider Unavailable Moise Davis Consulting Provider Jamie Martínez Consulting Provider Blaine Smith Consulting Provider Unavailable LaureanoTyramiguelito Vang Consulting Provider Unavailable Irene Mckeon Consulting Provider Unavailable Bety Gomez Consulting Provider Gomez, Viviane Consulting Provider [phone] Rita Tinsley Consulting Provider Unavailable Andreina Cardoso Consulting Provider [phone] Alexia Gutierres Consulting Provider Unavailable Estefany Villasenor [...] based on the clinical recommendations of the [place] [employer].5Result Comment: Critical Result(s) called to augusta at 01/14/2011 16:22 by sa. Read back OK.6Interpretive Data: Reference Ranges : 0 - 7 days : 41 - 90 mg/dL7 days - 150 yrs : 70 - 99 mg/dL ( fasting), based on the clinical recommendations of the [place] [employer].7Interpretive Data: Elevated results are in [...]
--- OUTSIDE RECORDS SUMMARY | 2018-10-02 18:49 | XMS REPORT | CCD ---
:1965 Author Organization [facility] Team Providers Name Role Phone Mila [...] [Few /LPF] Rare /LPF (03/25/2011 20:00:00) UA [place] Yeast [None Seen /HPF] Occasional /HPF *ABN* [...] based on the clinical recommendations of the [place] Diabetes Association.HEMATOLOGY Most recent to oldest [Reference [...]
--- OUTSIDE RECORDS SUMMARY | 2018-10-02 18:49 | XMS REPORT | CCD ---
:1965 Author Organization [facility] Team Providers Name Role Phone Penelope Villatoro [...]
--- OUTSIDE RECORDS SUMMARY | 2018-10-02 18:49 | XMS REPORT | CCD ---
:1965 Author Organization [facility] Team Providers Name Role Phone JUSTO Huang Consulting Provider Unavailable Sophia Schafer Consulting Provider Unavailable Pamella Vigil Consulting Provider Unavailable Maritza Terrell Consulting Provider [phone] Elizabeth Cummins Consulting Provider Unavailable Penelope Villatoro Consulting Provider Irene Phillip Consulting Provider Unavailable Tere Stoddard Consulting Provider Unavailable Alan Nixon Consulting Provider [phone] Sudhir Castillo Consulting Provider Unavailable Dakota Radford Consulting Provider Leyla Adair Consulting Provider Unavailable Elisabeth Mosley Consulting Provider Fabio Ricci Consulting Provider Unavailable Emily Clark Consulting Provider [phone] Cherise Yu Consulting Provider Gisella Purdy Consulting Provider Unavailable Hemant Villareal Consulting Provider [phone] Natanael Pickett Consulting Provider [phone] Isrrael Bueno Consulting Provider Unavailable Sarah Davis Consulting Provider Unavailable Keith Gomez Consulting Provider Unavailable Alisa Rocha Consulting Provider Unavailable SYSTEM, SYSTEM Consulting Provider Unavailable Rose Palafox S Consulting Provider Remi Paulson Consulting Provider Manuel Head Consulting Provider Unavailable Jayne Tinsley Consulting Provider Unavailable Skylar Guzman Consulting Provider Unavailable Bridgette López Consulting Provider Sonal Alexis Consulting Provider Unavailable Dk Castillo Consulting Provider [...] 02/11/2011 02/11/2011 Discontinued PO, Drug form: TAB, [id number], Start date: 02/11/11 3:00:00, Duration: 30 day, Stop date: 03/12/11 15:00:00 Cipro 250 mg, 1 tab, Route: 02/11/2011 02/11/2011 Discontinued PO, Drug form: TAB, [id number], Start date: 02/11/11 11:00:00, Duration: 30 day, [...] Few /LPF ? (02/10/2011 22:26:00) ?? UA [place] Yeast [>None Seen /HPF] Occasional /HPF ? [...] based on the clinical recommendations of the [place] [employer].5Result Comment: Critical Result(s) called to uba_ at 02/10/2011 22:36 by rvs. Read back OK.6Interpretive Data: Reference Ranges : 0 - 7 days : 41 - 90 mg/dL7 days - 150 yrs : 70 - 99 mg/dL ( fasting), based on the clinical recommendations of the [place] [employer].HEMATOLOGY Most recent to oldest 1 [...]
--- OUTSIDE RECORDS SUMMARY | 2018-10-02 18:50 | XMS REPORT | CCD ---
:1965 Author Organization [facility] Team Providers Name Role Phone [...] to Carisa at 11/28/2011 22:38:17 CDT [place] [facility] Read back OK.4Interpretive Data: Adult reference range values reflect the clinical guidelines of the [place] [employer].HEMATOLOGY Most recent to oldest [Reference [...]
--- OUTSIDE RECORDS SUMMARY | 2018-10-02 18:50 | XMS REPORT | CCD ---
:1965 Author Organization [facility] Team Providers Name Role Phone Mila [...] BID, 04/20/2011 Ordered 20 tab, Substitution Allowed [place] 10/325 oral tablet 1 tab, PO, Q4-6H, [...] based on the clinical recommendations of the [place] Diabetes Association.HEMATOLOGY Most recent to oldest [Reference [...]
--- OUTSIDE RECORDS SUMMARY | 2018-10-02 18:50 | XMS REPORT | CCD ---
:1965 Author Organization [facility] Team Providers Name Role Phone [...] based on the clinical recommendations of the [place] Diabetes [employer].HEMATOLOGY Most recent to oldest [Reference [...]
--- OUTSIDE RECORDS SUMMARY | 2018-10-02 18:50 | XMS REPORT | CCD ---
:1965 Author Organization [facility] Care Team Providers Name Role Phone Lorie [...]
--- OUTSIDE RECORDS SUMMARY | 2018-10-02 18:50 | XMS REPORT | CCD ---
:1965 Author Organization [facility] Team Providers Name Role Phone Tay Roche Consulting Provider Allergies, Adverse Reactions, Alerts Substance Reaction Status NKDA1 Active 1Pt has no food allergy Problem List Condition Effective Dates Status Abdominal pain Active Cellulitis Active Chest pain Active Hyperglycemia Active UTI - Urinary tract infection Active Medications Medication Instructions Start Date End Date Status [place] 5/325 oral tablet 1-2 tab, PO, Q4-6H, [...] values reflect the clinical guidelines of the [place] [employer].HEMATOLOGY Most recent to oldest [...]
--- OUTSIDE RECORDS SUMMARY | 2018-10-02 18:51 | XMS REPORT | CCD ---
:1965 Author Organization [facility] Care Team Providers Name Role Phone Lorie Isaacs Referring Provider Allergies, Adverse Reactions, Alerts Substance Reaction Status NKDA1 Active 1Pt has no food allergy Problem List Condition Effective Dates Status Abdominal pain Active Cellulitis Active Chest pain Active Hyperglycemia Active UTI - Urinary tract infection Active
--- OUTSIDE RECORDS SUMMARY | 2018-10-02 18:52 | XMS REPORT ---
:1965 [facility] Address [address] [place] [address] Care Team Providers Name Role Phone PRINCESS MARIE Unavailable Unavailable DALLIN SUMNER Unavailable Unavailable WARNER, ASTON PANDA Unavailable Unavailable JORGE LUIS, CWANZA SAÚL Unavailable Unavailable Problems This patient has no known problems. Allergies, Adverse Reactions, Alerts This patient has no known allergies or adverse reactions. Medications This patient has no known medications. Results Test Description Test Time Test Comments Text Results Atomic Results Result Comments POCT-GLUCOSE METER 2017-10-07 11:53:00 Test Item Value Reference Range Comments POC-GLUCOSE METER (BERedeemr) (test 277 mg/dL 70-110 TESTED AT [address] qszq=8373) [facility] [address] POCT-GLUCOSE [id number] 11:53:00 Test Item Value Reference Range Comments POC-GLUCOSE METER (BERedeemr) 411 mg/dL 70-110 TESTED AT [address] (test togz=4308) [facility] [address] RAD, SPINE, CERVICAL, 2 OR 3 [id number] 23:46:00Reason for exam:->neck painFINAL REPORT RAD, SPINE, [...] Grayson Verified Date/Time: 10/06/2017 23:46:30 Reading Location: [address] CT, SPINE, CERVICAL, WO [id number] 23:44:00Reason for exam:->neck painReason for exam:-> EMESISIs [...] Verified Date /Time: 10/06/2017 23:44:40 Reading Location: [address] Transitional Reading Room CT, BRAIN, WITHOUT [id number] 23:24:00Reason for exam:->occipital headacheReason for exam:->EMESISIs the [...] MRI for further evaluation. Signed: Carla Oden MDReport Verified Date/Time: 10/06/2017 23:24:44 Reading Location: [address] Reading Room Electronically signed by: CARLA ODEN M.D. on 11:24 PMTROPONIN [id number] 22:56:00 Test Item Value Reference Range Comments TROPONIN I (BEAKER) (test kzkh=757) < ng/mL 0.00-0.15 Troponin I (TnI) levels [...] acute neurological disease, and persistent tachyarrhythmia.COMPREHENSIVE METABOLIC [id number] 22:50:00 Test Item Value Reference Range Comments TOTAL PROTEIN (BEAKER) 8.5 gm/dL 6.0-8.5 (test ymhd=794) ALBUMIN (BEAKER) (test 4.3 g/dL 3.5-5.0 pdvd=0428) ALKALINE PHOSPHATASE 126 U/L 30-115 (BEAKER) (test vlqd=446) BILIRUBIN TOTAL (BEAKER) 0.5 mg/dL 0.1-1.2 (test aiqi=650) SODIUM (BEAKER) (test 134 meq/L 135-148 mylj=038) POTASSIUM (BEAKER) (test 4.3 meq/L 3.6-5.5 qqnw=376) CHLORIDE (BEAKER) (test 97 meq/L 98-106 dfht=575) CO2 (BEAKER) (test 24 meq/L 20-29 oebf=959) BLOOD UREA NITROGEN 17 mg/dL 10-26 (BEAKER) (test zrzo=044) CREATININE (BEAKER) (test 1.01 mg/dL 0.50-1.20 ipae=866) GLUCOSE RANDOM (BEAKER) 414 mg/dL 70-110 (test hgmg=157) CALCIUM (BEAKER) (test 9.6 mg/dL 8.5-10.5 mhcn=144) AST (SGOT) (BEAKER) (test 11 U/L 5-40 agfa=709) ALT (SGPT) (BEAKER) (test 9 U/L 5-50 tori=376) EGFR (BEAKER) (test 58 mL/min/1.73 sq m ESTIMATED GFR IS NOT qqtb=3452) ACCURATE CREATININE CLEARANCE IN PREDICTING GLOMERULAR FILTRATION RATE. ESTIMATED GFR IS NOT APPLICABLE FOR DIALYSIS PATIENTS. [id number] 22:42:00 Test Item Value Reference Range Comments AMYLASE (BEAKER) (test czhg=510) 58 U/L 30-110 CBC W/PLT COUNT & AUTO [id number] 22:22:00 Test Item Value Reference Range Comments WHITE BLOOD CELL COUNT (BEAKER) (test vjoc=495) 10.9 K/ L 4.0-10.0 RED BLOOD CELL COUNT (BEAKER) (test prea=970) 4.45 M/ L 4.00-5.00 HEMOGLOBIN (BEAKER) (test flha=344) 12.2 GM/DL 12.0-15.0 HEMATOCRIT (BEAKER) (test xorc=999) 37.0 % 36.0-45.0 MEAN CORPUSCULAR VOLUME (BEAKER) (test hcnr=795) 83.2 fL 82.0-99.0 MEAN CORPUSCULAR HEMOGLOBIN (BEAKER) (test 27.4 pg 27.0-33.0 vnww=374) MEAN CORPUSCULAR HEMOGLOBIN CONC (BEAKER) (test 32.9 GM/DL 32.0-36.0 yjqd=495) RED CELL DISTRIBUTION WIDTH (BEAKER) (test 14.0 % 10.3-14.2 qpiz=291) PLATELET COUNT (BEAKER) (test gkms=061) 359 K/CU MM 150-430 MEAN PLATELET VOLUME (BEAKER) (test rlqk=953) 7.8 fL 6.5-10.5 NUCLEATED RED BLOOD CELLS (BEAKER) (test 0 /100 WBC 0-0 akfa=774) NEUTROPHILS RELATIVE PERCENT (BEAKER) (test 71 % apeb=912) LYMPHOCYTES RELATIVE PERCENT (BEAKER) (test 23 % lbfb=290) MONOCYTES RELATIVE PERCENT (BEAKER) (test 5 % sfzz=384) EOSINOPHILS RELATIVE PERCENT (BEAKER) (test 0 % qdez=558) BASOPHILS RELATIVE PERCENT (BEAKER) (test 1 % jlra=011) NEUTROPHILS ABSOLUTE COUNT (BEAKER) (test 7.70 K/ L 1.80-8.00 xjky=154) LYMPHOCYTES ABSOLUTE COUNT (BEAKER) (test 2.50 K/ L 1.48-4.50 ozqh=273) MONOCYTES ABSOLUTE COUNT (BEAKER) (test 0.60 K/ L 0.00-1.30 ursl=693) EOSINOPHILS ABSOLUTE COUNT (BEAKER) (test 0.00 K/ L 0.00-0.50 vzfj=451) BASOPHILS ABSOLUTE COUNT (BEAKER) (test 0.10 K/ L 0.00-0.20 parl=370) URINALYSIS W/ [id number] 22:09:00 Test Item Value Reference Range Comments COLOR (BEAKER) (test nwpd=765) Yellow CLARITY (BEAKER) (test zhbr=471) Clear SPECIFIC GRAVITY UA (BEAKER) (test wepc=247) <= 1.001-1.035 PH UA (BEAKER) (test scoh=949) 6.0 5.0-8.0 PROTEIN UA (BEAKER) (test ikpz=275) Negative Negative GLUCOSE UA (BEAKER) (test fadm=217) >=1000 mg/dL Negative KETONES UA (BEAKER) (test vggy=240) Negative Negative BILIRUBIN UA (BEAKER) (test cyjs=659) Negative Negative BLOOD UA (BEAKER) (test ydfj=360) Trace Negative NITRITE UA (BEAKER) (test ccgu=169) Positive Negative LEUKOCYTE ESTERASE UA (BEAKER) (test ewya=622) Negative Negative UROBILINOGEN UA (BEAKER) (test ddhh=352) 0.2 mg/dL 0.2-1.0 BACTERIA (BEAKER) (test tgui=656) Many RBC UA-MANUAL (BEAKER) (test uxin=4317) <5 /HPF WBC UA-MANUAL (BEAKER) (test welw=8834) 10-20 /HPF SQUAMOUS EPITHELIAL MANUAL (BEAKER) (test <5 /HPF loxd=0141) SOURCE(BEAKER) (test bbhg=5062) POCT-GLUCOSE [id number] 07:19:00 Test Item Value Reference Range Comments POC-GLUCOSE METER (BEAKER) 241 mg/dL 70-110 TESTED AT [address] (test houe=5643) [address] [facility] [address] [address], [id number] 19:16:00FINAL REPORT CT OF THE ABDOMEN AND [...] MDReport Verified Date/Time: 09/22/2017 19:16:29 Reading Location: [address] Consult [facility] [id number] 17: 37:00 Test Item Value Reference Range Comments SODIUM (BEAKER) (test 134 meq/L 135-148 cxmh=485) POTASSIUM (BEAKER) (test 5.1 meq/L 3.6-5.5 Specimen markedly sotw=355) hemolyzed CHLORIDE (BEAKER) (test 98 meq/L 98-106 mbih=109) CO2 (BEAKER) (test 16 meq/L 20-29 lmit=232) BLOOD UREA NITROGEN 9 mg/dL 10-26 (BEAKER) (test rrbb=938) CREATININE (BEAKER) (test 0.92 mg/dL 0.50-1.20 Specimen markedly oljp=763) hemolyzed GLUCOSE RANDOM (BEAKER) 408 mg/dL 70-110 (test lhzx=149) CALCIUM (BEAKER) (test 9.6 mg/dL 8.5-10.5 bvmd=354) EGFR (BEAKER) (test 64 mL/min/1.73 sq m ESTIMATED GFR IS NOT wsrc=8582) ACCURATE CREATININE CLEARANCE IN PREDICTING GLOMERULAR FILTRATION RATE. ESTIMATED GFR IS NOT APPLICABLE FOR DIALYSIS PATIENTS. TROPONIN [id number] 17:07:00 Test Item Value Reference Range Comments TROPONIN I (BEAKER) (test ynvp=886) < ng/mL 0.00-0.15 Troponin I (TnI) levels [...] and persistent tachyarrhythmia.CREATINE KINASE (CK), TOTAL AND [id number] 17:06:00 Test Item Value Reference Range Comments CREATINE KINASE TOTAL (BEAKER) (test ibqk=021) 68 U/L 25-235 CREATINE KINASE-MB (BEAKER) (test rnlc=044) 0.6 ng/mL 0.0-4.9 CREATINE KINASE-MB INDEX (BEAKER) (test tbjo=974) 0.9 % CK-MB Reference Range:<5 Normal5-10 Borderline>10 [id number] 17:00:00 Test Item Value Reference Range Comments LIPASE (BEAKER) (test bxrn=953) 26 U/L 6-51 [id number] 16:51:00 Test Item Value Reference Range Comments AMYLASE (BEAKER) (test ijxs=671) 32 U/L 30-110 Specimen markedly hemolyzed URINALYSIS W/ [id number] 16:21:00 Test Item Value Reference Range Comments COLOR (BEAKER) (test bgdy=522) Yellow CLARITY (BEAKER) (test ygbs=705) Slightly Cloudy SPECIFIC GRAVITY UA (BEAKER) (test utza=035) <= 1.001-1.035 PH UA (BEAKER) (test prjs=180) 5.5 5.0-8.0 PROTEIN UA (BEAKER) (test loge=097) Negative Negative GLUCOSE UA (BEAKER) (test oqxz=371) >=1000 mg/dL Negative KETONES UA (BEAKER) (test wdof=018) Negative Negative BILIRUBIN UA (BEAKER) (test yabk=817) Negative Negative BLOOD UA (BEAKER) (test bwrx=113) Trace Negative NITRITE UA (BEAKER) (test ehcu=230) Positive Negative LEUKOCYTE ESTERASE UA (BEAKER) (test Negative Negative qosq=725) UROBILINOGEN UA (BEAKER) (test aslz=854) 0.2 mg/dL 0.2-1.0 BACTERIA (BEAKER) (test fxgz=501) Many AMORPHOUS CRYSTALS (BEAKER) (test qdke=4216) Moderate RBC UA-MANUAL (BEAKER) (test vyzr=5629) 5-10 /HPF WBC UA-MANUAL (BEAKER) (test vgik=5418) 50-100 /HPF SQUAMOUS EPITHELIAL MANUAL (BEAKER) (test <5 /HPF xaem=2370) SOURCE(BEAKER) (test ldts=8594) CBC W/PLT COUNT & AUTO [id number] 16:15:00 Test Item Value Reference Range Comments WHITE BLOOD CELL COUNT (BEAKER) (test pmis=849) 6.8 K/ L 4.0-10.0 RED BLOOD CELL COUNT (BEAKER) (test spyl=062) 4.46 M/ L 4.00-5.00 HEMOGLOBIN (BEAKER) (test aqal=861) 12.5 GM/DL 12.0-15.0 HEMATOCRIT (BEAKER) (test oehg=492) 37.3 % 36.0-45.0 MEAN CORPUSCULAR VOLUME (BEAKER) (test vred=672) 83.7 fL 82.0-99.0 MEAN CORPUSCULAR HEMOGLOBIN (BEAKER) (test 28.0 pg 27.0-33.0 yxij=786) MEAN CORPUSCULAR HEMOGLOBIN CONC (BEAKER) (test 33.4 GM/DL 32.0-36.0 ivgu=476) RED CELL DISTRIBUTION WIDTH (BEAKER) (test 13.4 % 10.3-14.2 rkag=881) PLATELET COUNT (BEAKER) (test gvmp=551) 340 K/CU MM 150-430 MEAN PLATELET VOLUME (BEAKER) (test bxhq=231) 7.9 fL 6.5-10.5 NUCLEATED RED BLOOD CELLS (BEAKER) (test 0 /100 WBC 0-0 rzhq=587) NEUTROPHILS RELATIVE PERCENT (BEAKER) (test 60 % wnid=889) LYMPHOCYTES RELATIVE PERCENT (BEAKER) (test 32 % ddxm=607) MONOCYTES RELATIVE PERCENT (BEAKER) (test 7 % nfmt=787) EOSINOPHILS RELATIVE PERCENT (BEAKER) (test 1 % srlp=989) BASOPHILS RELATIVE PERCENT (BEAKER) (test 0 % ccrr=520) NEUTROPHILS ABSOLUTE COUNT (BEAKER) (test 4.00 K/ L 1.80-8.00 rvyn=886) LYMPHOCYTES ABSOLUTE COUNT (BEAKER) (test 2.20 K/ L 1.48-4.50 bejf=256) MONOCYTES ABSOLUTE COUNT (BEAKER) (test 0.50 K/ L 0.00-1.30 flnx=597) EOSINOPHILS ABSOLUTE COUNT (BEAKER) (test 0.10 K/ L 0.00-0.50 rwgv=151) BASOPHILS ABSOLUTE COUNT (BEAKER) (test 0.00 K/ L 0.00-0.20 ivkv=914) POCT-GLUCOSE [id number] 15:36:00 Test Item Value Reference Range Comments POC-GLUCOSE METER (BEAKER) 284 mg/dL 70-110 TESTED AT [address] (test vbmu=1437) [address] [facility] [address] [address], [id number] 15:32:00Reason for exam:->LLQ ABD PAINIs the patient [...] since prior examination dated 07/09/2016. Signed: Gama Valdezort Verified Date/Time: 07/07/2017 15:32:20 Reading Location: [place] [id number] CT Body Reading Room [id number] 14:41:00 Test Item Value Reference Range Comments LIPASE (BEAKER) (test cood=703) 32 U/L 6-51 COMPREHENSIVE METABOLIC [id number] 14:40:00 Test Item Value Reference Range Comments TOTAL PROTEIN (BEAKER) 7.1 gm/dL 6.0-8.5 (test qsld=488) ALBUMIN (BEAKER) (test 3.6 g/dL 3.5-5.0 ffyf=5192) ALKALINE PHOSPHATASE 159 U/L 30-115 (BEAKER) (test dpmf=055) BILIRUBIN TOTAL (BEAKER) 0.3 mg/dL 0.1-1.2 (test owte=294) SODIUM (BEAKER) (test 132 meq/L 135-148 jrdh=333) POTASSIUM (BEAKER) (test 4.1 meq/L 3.6-5.5 wzcq=015) CHLORIDE (BEAKER) (test 98 meq/L 98-106 zezl=993) CO2 (BEAKER) (test 27 meq/L 20-29 nesy=562) BLOOD UREA NITROGEN 13 mg/dL 10-26 (BEAKER) (test ghss=547) CREATININE (BEAKER) (test 0.80 mg/dL 0.50-1.20 sivz=727) GLUCOSE RANDOM (BEAKER) 399 mg/dL 70-110 (test ueib=579) CALCIUM (BEAKER) (test 8.9 mg/dL 8.5-10.5 xpzm=362) AST (SGOT) (BEAKER) (test 9 U/L 5-40 vnxb=440) ALT (SGPT) (BEAKER) (test 11 U/L 5-50 fqxe=682) EGFR (BEAKER) (test 76 mL/min/1.73 sq m ESTIMATED GFR IS NOT yzsy=7663) ACCURATE CREATININE CLEARANCE IN PREDICTING GLOMERULAR FILTRATION RATE. ESTIMATED GFR IS NOT APPLICABLE FOR DIALYSIS PATIENTS. POCT-GLUCOSE [id number] 14:10:00 Test Item Value Reference Range Comments POC-GLUCOSE METER (BEAKER) 352 mg/dL 70-110 TESTED AT [facility] [address] [facility] (test yrtf=3547) [facility] [address] CBC W/PLT COUNT & AUTO [id number] 13:30:00 Test Item Value Reference Range Comments WHITE BLOOD CELL COUNT (BEAKER) (test hmtp=968) 5.5 K/ L 4.0-10.0 RED BLOOD CELL COUNT (BEAKER) (test fzht=470) 3.93 M/ L 4.00-5.00 HEMOGLOBIN (BEAKER) (test momh=243) 10.9 GM/DL 12.0-15.0 HEMATOCRIT (BEAKER) (test rhnz=195) 32.8 % 36.0-45.0 MEAN CORPUSCULAR VOLUME (BEAKER) (test mgmr=083) 83.4 fL 82.0-99.0 MEAN CORPUSCULAR HEMOGLOBIN (BEAKER) (test 27.8 pg 27.0-33.0 ooom=661) MEAN CORPUSCULAR HEMOGLOBIN CONC (BEAKER) (test 33.3 GM/DL 32.0-36.0 bclo=454) RED CELL DISTRIBUTION WIDTH (BEAKER) (test 13.6 % 10.3-14.2 bobe=572) PLATELET COUNT (BEAKER) (test cndu=342) 344 K/CU MM 150-430 MEAN PLATELET VOLUME (BEAKER) (test fmge=764) 8.5 fL 6.5-10.5 NEUTROPHILS RELATIVE PERCENT (BEAKER) (test 59 % wqsv=786) LYMPHOCYTES RELATIVE PERCENT (BEAKER) (test 36 % vyqg=377) MONOCYTES RELATIVE PERCENT (BEAKER) (test 4 % krff=174) EOSINOPHILS RELATIVE PERCENT (BEAKER) (test 1 % gcid=337) BASOPHILS RELATIVE PERCENT (BEAKER) (test 0 % zcaz=903) NEUTROPHILS ABSOLUTE COUNT (BEAKER) (test 3.20 K/ L 1.80-8.00 gtfq=734) LYMPHOCYTES ABSOLUTE COUNT (BEAKER) (test 2.00 K/ L 1.48-4.50 gryi=449) MONOCYTES ABSOLUTE COUNT (BEAKER) (test 0.20 K/ L 0.00-1.30 zkev=584) EOSINOPHILS ABSOLUTE COUNT (BEAKER) (test 0.10 K/ L 0.00-0.50 ytun=531) BASOPHILS ABSOLUTE COUNT (BEAKER) (test 0.00 K/ L 0.00-0.20 ayry=376) URINALYSIS W/ [id number] 13:01:00 Test Item Value Reference Range Comments COLOR (BEAKER) (test fofk=101) Light Yellow CLARITY (BEAKER) (test wbmc=654) Clear SPECIFIC GRAVITY UA (BEAKER) (test wkpf=749) <= 1.001-1.035 PH UA (BEAKER) (test jtym=703) 6.0 5.0-8.0 PROTEIN UA (BEAKER) (test lzuc=695) Negative Negative GLUCOSE UA (BEAKER) (test ttrp=283) >=1000 mg/dL Negative KETONES UA (BEAKER) (test zlml=251) Negative Negative BILIRUBIN UA (BEAKER) (test mkjy=564) Negative Negative BLOOD UA (BEAKER) (test xsov=121) Negative Negative NITRITE UA (BEAKER) (test vpbj=140) Negative Negative LEUKOCYTE ESTERASE UA (BEAKER) (test Negative Negative gwxo=122) UROBILINOGEN UA (BEAKER) (test pjrf=205) 0.2 mg/dL 0.2-1.0 BACTERIA (BEAKER) (test irtr=650) Few RBC UA-MANUAL (BEAKER) (test taoc=8954) None Seen /HPF WBC UA-MANUAL (BEAKER) (test jvww=7401) <5 /HPF SQUAMOUS EPITHELIAL MANUAL (BEAKER) (test None Seen /HPF uugu=2023) SOURCE(BEAKER) (test dmre=0647) KETONE, [id number] 12:58:00 Test Item Value Reference Range Comments KETONES, BLOOD (BEAKER) (test lhyh=7724) 0.1 mmol/L <0.4 BLOOD GAS, [id number] 12:48:00 Test Item Value Reference Range Comments PH VENOUS (BEAKER) (test bbgj=251) 7.38 7.32-7.42 PCO2 VENOUS (BEAKER) (test wvqu=970) 46 mmHg 41-51 PO2 VENOUS (BEAKER) (test trcs=659) 73 mmHg 25-40 O2 SATURATION VENOUS (BEAKER) (test yjex=601) 94.5 % 40.0-70.0 HCO3 VENOUS (BEAKER) (test uekq=918) 27 mmol/L 21-29 BASE EXCESS VENOUS (BEAKER) (test bgxz=919) 1.3 mmol/L -2.0-3.0 PATIENT TEMPERATURE (BEAKER) (test mzoz=3844) 37.0 C FIO2 (BEAKER) (test rhyw=7577) 37.0 % POCT-GLUCOSE [id number] 12:04:00 Test Item Value Reference Range Comments POC-GLUCOSE METER (BEAKER) > mg/dL 70-110 OUTSIDE MEASURING RANGETESTED AT (test ijgc=9947) [address] [address] URINE [id number] 09:22:00 Test Item Value Reference Range Comments CULTURE (BEAKER) (test KLEBSIELLA PNEUMONIAE >100,000 col/mL ntmj=9337) SSP PNEUMONIAE Klebsiella pneumoniae ssp pneumoniae Ampicillin + Sulbactam (test code=6) Cefoxitin (test code=68) Ceftriaxone (test code=52) Gentamicin (test code=18) Levofloxacin (test code=22) Nitrofurantoin (test code=23) Piperacillin + Tazobactam (test code=29) Tetracycline (test code=2) Tobramycin (test code=25) Trimethoprim + Sulfamethoxazole (test code=47) POCT-GLUCOSE [id number] 23:15:00 Test Item Value Reference Range Comments POC-GLUCOSE METER (BEAKER) 227 mg/dL 70-110 TESTED AT [address] (test pyem=7438) [facility] [address] URINALYSIS W/ [id number] 22:36:00 Test Item Value Reference Range Comments COLOR (BEAKER) (test ullt=290) Yellow CLARITY (BEAKER) (test wgge=229) Clear SPECIFIC GRAVITY UA (BEAKER) (test fiyd=207) <= 1.001-1.035 PH UA (BEAKER) (test vkos=961) 6.5 5.0-8.0 PROTEIN UA (BEAKER) (test lvcc=899) Negative Negative GLUCOSE UA (BEAKER) (test kjxg=233) >=1000 mg/dL Negative KETONES UA (BEAKER) (test jnsk=776) Trace Negative BILIRUBIN UA (BEAKER) (test kqli=998) Negative Negative BLOOD UA (BEAKER) (test bxgn=804) Negative Negative NITRITE UA (BEAKER) (test qrab=231) Positive Negative LEUKOCYTE ESTERASE UA (BEAKER) (test Negative Negative lohe=217) UROBILINOGEN UA (BEAKER) (test zkjk=989) 0.2 mg/dL 0.2-1.0 BACTERIA (BEAKER) (test odpo=050) Many RBC UA-MANUAL (BEAKER) (test mydw=0636) <5 /HPF WBC UA-MANUAL (BEAKER) (test hzvc=5931) <5 /HPF SQUAMOUS EPITHELIAL MANUAL (BEAKER) (test None Seen /HPF nurv=3702) SOURCE(BEAKER) (test uddi=6286) KETONE, [id number] 22:32:00 Test Item Value Reference Range Comments KETONES, BLOOD (BEAKER) (test aucd=9017) 0.6 mmol/L <0.4 BLOOD GAS, [id number] 22:30:00 Test Item Value Reference Range Comments PH VENOUS (BEAKER) (test fzpu=323) 7.39 7.32-7.42 PCO2 VENOUS (BEAKER) (test kxkc=140) 48 mmHg 41-51 PO2 VENOUS (BEAKER) (test aqqo=984) 28 mmHg 25-40 O2 SATURATION VENOUS (BEAKER) (test haup=839) 51.3 % 40.0-70.0 HCO3 VENOUS (BEAKER) (test rctf=685) 29 mmol/L 21-29 BASE EXCESS VENOUS (BEAKER) (test kjrq=001) 3.0 mmol/L -2.0-3.0 PATIENT TEMPERATURE (BEAKER) (test gbes=7669) 37.0 C FIO2 (BEAKER) (test bdcn=7939) 21.0 % SCREEN, [id number] 22:29:00 Test Item Value Reference Range Comments TEST URINE (BEAKER) (test wfkj=418) Negative TROPONIN [id number] 21:42:00 Test Item Value Reference Range Comments TROPONIN I (BEAKER) (test dzxo=521) < ng/mL 0.00-0.15 Troponin I (TnI) levels [...] and persistent tachyarrhythmia.CREATINE KINASE (CK), TOTAL AND [id number] 21:41:00 Test Item Value Reference Range Comments CREATINE KINASE TOTAL (BEAKER) (test xfpg=106) 78 U/L 25-235 CREATINE KINASE-MB (BEAKER) (test seed=866) 0.4 ng/mL 0.0-4.9 CREATINE KINASE-MB INDEX (BEAKER) (test tffo=502) 0.5 % CK-MB Reference Range:<5 Normal5-10 Borderline>10 AbnormalCOMPREHENSIVE METABOLIC [id number] 21:34:00 Test Item Value Reference Range Comments TOTAL PROTEIN (BEAKER) 8.8 gm/dL 6.0-8.5 Specimen moderately (test vadm=242) hemolyzed ALBUMIN (BEAKER) (test 4.3 g/dL 3.5-5.0 Specimen moderately ufwr=6783) hemolyzed ALKALINE PHOSPHATASE 124 U/L 30-115 (BEAKER) (test gftu=896) BILIRUBIN TOTAL (BEAKER) 0.4 mg/dL 0.1-1.2 Specimen moderately (test pwtf=036) hemolyzed SODIUM (BEAKER) (test 130 meq/L 135-148 lmpn=092) POTASSIUM (BEAKER) (test 5.2 meq/L 3.6-5.5 Specimen moderately mgvj=910) hemolyzed CHLORIDE (BEAKER) (test 93 meq/L 98-106 jeih=199) CO2 (BEAKER) (test 24 meq/L 20-29 clnb=767) BLOOD UREA NITROGEN 11 mg/dL 10-26 (BEAKER) (test gkqw=562) CREATININE (BEAKER) (test 0.90 mg/dL 0.50-1.20 Specimen moderately jlpt=123) hemolyzed GLUCOSE RANDOM (BEAKER) 483 mg/dL 70-110 (test ogdp=060) CALCIUM (BEAKER) (test 9.6 mg/dL 8.5-10.5 ybvx=969) AST (SGOT) (BEAKER) (test 21 U/L 5-40 Specimen moderately glib=043) hemolyzed ALT (SGPT) (BEAKER) (test 14 U/L 5-50 Specimen moderately ieeg=159) hemolyzed EGFR (BEAKER) (test 66 mL/min/1.73 sq m ESTIMATED GFR IS NOT qmhi=7742) ACCURATE CREATININE CLEARANCE IN PREDICTING GLOMERULAR FILTRATION RATE. ESTIMATED GFR IS NOT APPLICABLE FOR DIALYSIS PATIENTS. [id number] 21:32:00 Test Item Value Reference Range Comments LIPASE (BEAKER) (test wlmx=903) 28 U/L 6-51 CBC W/PLT COUNT & AUTO [id number] 20:55:00 Test Item Value Reference Range Comments WHITE BLOOD CELL COUNT (BEAKER) (test pvxs=903) 6.6 K/ L 4.0-10.0 RED BLOOD CELL COUNT (BEAKER) (test pdzf=539) 4.78 M/ L 4.00-5.00 HEMOGLOBIN (BEAKER) (test wvpq=377) 12.9 GM/DL 12.0-15.0 HEMATOCRIT (BEAKER) (test wusy=667) 39.6 % 36.0-45.0 MEAN CORPUSCULAR VOLUME (BEAKER) (test okos=504) 82.8 fL 82.0-99.0 MEAN CORPUSCULAR HEMOGLOBIN (BEAKER) (test 26.9 pg 27.0-33.0 xnga=278) MEAN CORPUSCULAR HEMOGLOBIN CONC (BEAKER) (test 32.5 GM/DL 32.0-36.0 cvsg=909) RED CELL DISTRIBUTION WIDTH (BEAKER) (test 14.0 % 10.3-14.2 aqnu=065) PLATELET COUNT (BEAKER) (test gebl=641) 335 K/CU MM 150-430 MEAN PLATELET VOLUME (BEAKER) (test exuq=792) 7.7 fL 6.5-10.5 NUCLEATED RED BLOOD CELLS (BEAKER) (test 0 /100 WBC 0-0 vdsd=631) NEUTROPHILS RELATIVE PERCENT (BEAKER) (test 56 % smdp=674) LYMPHOCYTES RELATIVE PERCENT (BEAKER) (test 36 % bocv=488) MONOCYTES RELATIVE PERCENT (BEAKER) (test 6 % cxnq=544) EOSINOPHILS RELATIVE PERCENT (BEAKER) (test 2 % zmxo=806) BASOPHILS RELATIVE PERCENT (BEAKER) (test 0 % jgys=604) NEUTROPHILS ABSOLUTE COUNT (BEAKER) (test 3.70 K/ L 1.80-8.00 ckcn=786) LYMPHOCYTES ABSOLUTE COUNT (BEAKER) (test 2.30 K/ L 1.48-4.50 mkmi=689) MONOCYTES ABSOLUTE COUNT (BEAKER) (test 0.40 K/ L 0.00-1.30 pibd=284) EOSINOPHILS ABSOLUTE COUNT (BEAKER) (test 0.20 K/ L 0.00-0.50 cxut=831) BASOPHILS ABSOLUTE COUNT (BEAKER) (test 0.00 K/ L 0.00-0.20 afhx=145) POCT-GLUCOSE [id number] 20:56:00 Test Item Value Reference Range Comments POC-GLUCOSE METER (BEAKER) 446 mg/dL 70-110 Notified KIRIT DALTON/TESTED AT [facility] (test dqkj=1899) [address] [facility] [id number]
[2018-10-02] MEDS ORDERED: FENTANYL CITR 100 MCG/2 ML ONE (19:16)
--- NOTE | 2018-10-02 19:49 | ER ---
Nurse's Notes [facility] Name: Melissa De Oliveira Age: 53 yrs Sex: Female : 1965 Arrival Date: 10/02/2018 Time: 18:18 Bed 5 Private MD: Diagnosis: Pain in right foot;Urinary tract infection, site not specified Presentation: 10/02 18:23 Presenting complaint: Patient states: Pain with urination x 3 days; Pain to right foot lp1 since last Friday, denies any injury. Transition of care: patient was not received from another setting of care. Onset of symptoms was October 02, 2018. Risk Assessment: Do you want to hurt yourself or someone else? Patient reports no desire to harm self or others. Initial Sepsis Screen: Does the patient meet any 2 criteria? No. Patient's initial sepsis screen is negative. Does the patient have a suspected source of infection? No. Patient's initial sepsis screen is negative. Care prior to arrival: None. 18:23 Method Of Arrival: Wheelchair lp1 18:23 Acuity: DEYA 4 lp1 Triage Assessment: 18:40 General: Appears in no apparent distress. comfortable, slender, Behavior is bp cooperative, appropriate for age, anxious. Pain: Complains of pain in right foot. EENT: No deficits noted. Neuro: No deficits noted. Cardiovascular: No deficits noted. Respiratory: No deficits noted. GI: No signs and/or symptoms were reported involving the gastrointestinal system. : Reports burning with urination. Derm: No deficits noted. Musculoskeletal: No deficits noted. 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 - Social history:: Smoking status: Patient/guardian denies using tobacco. - Ebola Screening: : No symptoms or risks identified at this time. Screenin:26 Abuse screen: Denies threats or abuse. Denies injuries from another. Nutritional lp1 screening: No deficits noted. Tuberculosis screening: No symptoms or risk factors identified. 20:08 Fall Risk Gait- Impaired (20 pts.). tl1 Assessment: 18:25 General: SEE TRIAGE NOTE. bp 20:05 Reassessment: Patient and/or family updated on plan of care and expected duration. Pain tl1 level reassessed. Patient is alert, oriented x 3, equal unlabored respirations, skin warm/dry/pink. Patient states feeling better. Patient states symptoms have improved. Pain: Complains of pain in right foot. Neuro: Level of Consciousness is awake, alert, obeys commands, Oriented to person, place, time, situation. Cardiovascular: Denies chest pain. Respiratory: Airway is patent Trachea midline Respiratory effort is even, unlabored, Breath sounds are clear bilaterally. GI: Abdomen is non-distended, Bowel sounds present X 4 quads. Abd is soft and non tender X 4 quads. : Reports pain urgency, urinary frequency. EENT: No signs and/or symptoms were reported regarding the EENT system. Derm: No signs and/or symptoms reported regarding the dermatologic system. Musculoskeletal: Reports pain in lateral aspect of right foot and lateral side of right foot and right foot. Vital Signs: 18:22 BP 140 / 72; Pulse 88; Resp 18; Temp 98.6(O); Pulse Ox 100% on R/A; Weight 45.36 kg lp1 (R); Height 5 ft. 4 in. (162.56 cm); Pain 7/10; 19:36 BP 146 / 84; Pulse 85; Resp 16; Pulse Ox 100% ; Pain 4/10; tl1 20:05 Temp 98.7(O); tl1 18:22 Body Mass Index 17.16 (45.36 kg, 162.56 cm) lp1 ED Course: 18:18 Patient arrived in ED. rg4 18:23 Arm band placed on left wrist. lp1 18:24 Triage completed. lp1 18:29 Audra Whitmore FNP-C is [facility]. snw 18:29 Chandana Nelson MD is Attending Physician. snw 18:42 Patient has correct armband on for positive identification. bp 19:03 Foot Right 3 View XRAY In Process Unspecified. EDMS 19:36 Shannon Li, RN is Primary Nurse. tl1 20:04 No provider procedures requiring assistance completed. Patient did not have IV access tl1 during this emergency room visit. post op shoe applied to right foot. Administered Medications: 19:07 Drug: fentaNYL (PF) 25 mcg Route: IM; Site: left gluteus; tl1 19:55 Follow up: Response: No adverse reaction; Marked relief of symptoms; Pain is decreased tl1 Point of Care Testing: Blood Glucose: 18:49 Blood Glucose: 454 mg/dL; jp3 18:49 Provider and nurse notified jp3 Ranges: Outcome: 19:49 Discharge ordered by MD. snw 20:07 Discharged to home via wheelchair. tl1 20:07 Condition: good 20:07 Discharge instructions given to patient, Instructed on discharge instructions, follow up and referral plans. medication usage, Demonstrated understanding of instructions, follow-up care, medications, Prescriptions given X 2. 20:09 Patient left the ED. tl1 Addendum: 10/05/2018 08:43 Addendum: Culture Results: Positive urine culture. No further action required. Bacteria s s sensitive to prescribed antibiotic. Signatures: Dispatcher [employer] EDMS Audra Whitmore, EMERGENCY DEPT TECH-C EMERGENCY DEPT TECH-Csnw Anat Hendrix RN RN ss Halie Johnson, RN RN lp1 Shannon Li, RN RN tl1 Nichol Cabezas rg4 Tremaine Mayorga, KIRIT RN Mino Perez jp3
--- NOTE | 2018-10-02 19:50 | EDPHYS ---
Physician Documentation [facility] Name: Melissa De Oliveira Age: 53 yrs Sex: Female : 1965 Arrival Date: 10/02/2018 Time: 18:18 Bed 5 Private MD: ED Physician Chandana Nelson HPI: 10/02 19:09 This 53 yrs old Female presents to ER via Wheelchair with complaints of Foot snw Pain, Urinary Problem. 19:09 The patient presents with pain, that is acute. The complaints affect the lateral aspect snw of right foot. Context: The problem was sustained at home, resulted from an unknown cause, the patient can partially bear weight, Problem is a result from a previous injury: No. Onset: The symptoms/episode began/occurred 3 day(s) ago, and became persistent. Associated signs and symptoms: Pertinent positives: also c/o dysuria. Severity of symptoms: At their worst the symptoms were moderate. It is unknown whether or not the patient has had similar symptoms in the past. It is unknown whether or not the patient has recently seen a physician. Pt states she just ate dinner and declines insulin 2nd to tendency to drop to the 20s. 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 - Social history:: Smoking status: Patient/guardian denies using tobacco. - Ebola Screening: : No symptoms or risks identified at this time. ROS: 19:08 Constitutional: Negative for fever, chills, and weight loss, Eyes: Negative for injury, snw pain, redness, and discharge, ENT: Negative for injury, pain, and discharge, Neck: Negative for injury, pain, and swelling, Cardiovascular: Negative for chest pain, palpitations, and edema, Respiratory: Negative for shortness of breath, cough, wheezing, and pleuritic chest pain, Abdomen/GI: Negative for abdominal pain, nausea, vomiting, diarrhea, and constipation, Back: Negative for injury and pain, : Negative for injury, bleeding, discharge, and swelling, + dysuria, + frequency Skin: Negative for injury, rash, and discoloration, Neuro: Negative for headache, weakness, numbness, tingling, and seizure, Psych: Negative for depression, anxiety, suicide ideation, homicidal ideation, and hallucinations. 19:08 MS/extremity: Positive for injury or acute deformity, pain, of the lateral side of right foot. Exam: 18:57 Constitutional: This is a well developed, well nourished patient who is awake, alert, snw and in no acute distress. Head/Face: Normocephalic, atraumatic. Eyes: Pupils equal round and reactive to light, extra-ocular motions intact. Lids and lashes normal. Conjunctiva and sclera are non-icteric and not injected. Cornea within normal limits. Periorbital areas with no swelling, redness, or edema. ENT: Nares patent. No nasal discharge, no septal abnormalities noted. Tympanic membranes are normal and external auditory canals are clear. Oropharynx with no redness, swelling, or masses, exudates, or evidence of obstruction, uvula midline. Mucous membranes moist. Neck: Trachea midline, no thyromegaly or masses palpated, and no cervical lymphadenopathy. Supple, full range of motion without nuchal rigidity, or vertebral point tenderness. No Meningismus. Chest/axilla: Normal chest wall appearance and motion. Nontender with no deformity. No lesions are appreciated. Cardiovascular: Regular rate and rhythm with a normal S1 and S2. No gallops, murmurs, or rubs. Normal PMI, no JVD. No pulse deficits. Respiratory: Lungs have equal breath sounds bilaterally, clear to auscultation and percussion. No rales, rhonchi or wheezes noted. No increased work of breathing, no retractions or nasal flaring. Abdomen/GI: Soft, non-tender, with normal bowel sounds. No distension or tympany. No guarding or rebound. No evidence of tenderness throughout. Back: No spinal tenderness. No costovertebral tenderness. Full range of motion. Skin: Warm, dry with normal turgor. Normal color with no rashes, no lesions, and no evidence of cellulitis. Neuro: Awake and alert, GCS 15, oriented to person, place, time, and situation. Cranial nerves II-XII grossly intact. Motor strength 5/5 in all extremities. Sensory grossly intact. Cerebellar exam normal. Normal gait. Psych: Awake, alert, with orientation to person, place and time. Behavior, mood, and affect are within normal limits. 18:57 Musculoskeletal/extremity: ROM: intact in all extremities, Circulation is intact in all extremities. no new changes tenderness to right lateral foot. Vital Signs: 18:22 BP 140 / 72; Pulse 88; Resp 18; Temp 98.6(O); Pulse Ox 100% on R/A; Weight 45.36 kg lp1 (R); Height 5 ft. 4 in. (162.56 cm); Pain 7/10; 19:36 BP 146 / 84; Pulse 85; Resp 16; Pulse Ox 100% ; Pain 4/10; tl1 20:05 Temp 98.7(O); tl1 18:22 Body Mass Index 17.16 (45.36 kg, 162.56 cm) lp1 MDM: 18:47 Patient medically screened. snw 19:51 Data reviewed: vital signs, nurses notes. Data interpreted: Pulse oximetry: on room air snw is 100 %. Interpretation: normal. Counseling: I had a detailed discussion with the patient and/or guardian regarding: the historical points, exam findings, and any diagnostic results supporting the discharge/admit diagnosis, the presence of at least one elevated blood pressure reading (>120/80) during this emergency department visit, lab results, radiology results, the need for outpatient follow up, to return to the emergency department if symptoms worsen or persist or if there are any questions or concerns that arise at home. Special discussion: I have referred the patient to see his PCP for further evaluation of high blood pressure. Based on the history and exam findings, there is no indication for further emergent testing or inpatient evaluation. I discussed with the patient/guardian the need to see the orthopedic surgeon for further evaluation of the symptoms. I discussed with the patient/guardian the need to see the primary care provider for further evaluation of the symptoms. 10/02 18:29 Order name: Urine Culture snw 10/02 18:29 Order name: Urine Microscopic Only snw 10/02 18:29 Order name: Foot Right 3 View XRAY snw 10/02 18:50 Order name: Glucose, Ancillary Testing; Complete Time: 18:54 EDMS 10/02 19:48 Order name: Urine Dipstick--Ancillary (enter results) ar5 10/02 18:29 Order name: Urine Dipstick-Ancillary (obtain specimen); Complete Time: 19:49 snw 10/02 18:29 Order name: FSBS; Complete Time: 18:56 snw 10/02 19:51 Order name: Post-op shoe; Complete Time: 19:55 snw Administered Medications: 19:07 Drug: fentaNYL (PF) 25 mcg Route: IM; Site: left gluteus; tl1 19:55 Follow up: Response: No adverse reaction; Marked relief of symptoms; Pain is decreased tl1 Point of Care Testing: Blood Glucose: 18:49 Blood Glucose: 454 mg/dL; jp3 18:49 Provider and nurse notified jp3 Ranges: Critical Glucose Levels:Adult <50 mg/dl or >400 mg/dl <40 mg/dl or >180 mg/dl Disposition: 10/02/18 19:49 Discharged to Home. Impression: Pain in right foot, Urinary tract infection, site not specified. - Condition is Stable. - Discharge Instructions: Musculoskeletal Pain, Urinary Tract Infection, Adult, Cryotherapy, Rehydration, Adult. - Prescriptions for Macrobid 100 mg Oral Capsule - take 1 capsule by ORAL route every 12 hours for 10 days; 20 capsule. Cipro 500 mg Oral Tablet - take 1 tablet by ORAL route every 12 hours for 7 days; 14 tablet. - Work release form, Medication Reconciliation Form, Thank You Letter, Antibiotic Education, Prescription Opioid Use form. - Follow up: Private Physician; When: 2 - 3 days; Reason: Recheck today's complaints, Continuance of care, Re-evaluation by your physician. Follow up: Emergency Department; When: As needed; Reason: Worsening of condition. Addendum: 10/05/2018 06:58 Co-signature as Attending Physician, Chandana Nelson MD. r n Signatures: Dispatcher [employer] EDME Audra Whitmore, ADMINISTRATIVE ASSISTANT RECEPTIONIST-C ADMINISTRATIVE ASSISTANT RECEPTIONIST-Csnw Chandana Nelson MD MD rn Pena, Laura, RN RN lp1 Shannon Li RN RN tl1 Corrections: (The following items were deleted from the chart) 10/02 19:09 19:08 Constitutional: Negative for fever, chills, and weight loss, Eyes: Negative for snw injury, pain, redness, and discharge, ENT: Negative for injury, pain, and discharge, Neck: Negative for injury, pain, and swelling, Cardiovascular: Negative for chest pain, palpitations, and edema, Respiratory: Negative for shortness of breath, cough, wheezing, and pleuritic chest pain, Abdomen/GI: Negative for abdominal pain, nausea, vomiting, diarrhea, and constipation, Back: Negative for injury and pain, : Negative for injury, bleeding, discharge, and swelling, Skin: Negative for injury, rash, and discoloration, Neuro: Negative for headache, weakness, numbness, tingling, and seizure, Psych: Negative for depression, anxiety, suicide ideation, homicidal ideation, and hallucinations, snw 20:09 19:49 10/02/2018 19:49 Discharged to Home. Impression: Pain in right foot; Urinary tl1 tract infection, site not specified. Condition is Stable. Forms are Medication Reconciliation Form, Thank You Letter, Antibiotic Education, Prescription Opioid Use. Follow up: Private Physician; When: 2 - 3 days; Reason: Recheck today's complaints, Continuance of care, Re-evaluation by your physician. Follow up: Emergency Department; When: As needed; Reason: Worsening of condition. snw
[2018-10-02 20:10] LABS: Urine Bacteria 20-50 /HPF (<20)
[2018-10-02 20:11] LABS: Urine Blood TRACE (NEG); Urine Glucose 2+ (NEG); Urine Protein NEGATIVE (NEG); Urine pH 5.5 (5.0-7.0)
[2018-10-02 20:11] LABS: Urine Amorphous Sediment 2+ /HPF (NONE SEEN); Urine Culture Reflex Order NOT NEEDED; Urine Mucus 2+ /HPF (NONE SEEN)
[2018-10-02 21:10] VITALS: O2SAT 100
[2018-10-02 21:12] VITALS: BP 146/84
[2018-10-02 21:13] VITALS: TEMP 98.7
--- NOTE | 2018-10-03 08:38 | RAD REPORT ---
EXAM DESCRIPTION: RAD - Foot Right 3 View - 10/02/2018 6:50 pm CLINICAL HISTORY: Right foot pain COMPARISON: November 2013 FINDINGS: No fracture, dislocation or periosteal reaction. No acute or destructive bone process. Lar ge spur is present at the Achilles attachment to the calcaneus. A very small plantar spur is present. No air or foreign body in the soft tissues. IMPRESSION: Negative right foot examination for acute or suspicious finding.
== END 2018-10-02 20:09 | disposition home or self-care (01) ==
LOC: ER 18:16
DX: M79.671 Pain in right foot (principal); N39.0 Urinary tract infection, site not specified; E11.9 Type 2 diabetes mellitus without complications; Z88.5 Allergy status to narcotic agent; Z88.8 Allergy status to other drugs, medicaments and biological substances; Z79.4 Long term (current) use of insulin
CPT/HCPCS: 81003; 81015; 82962; 87077; 87086; 87088; 87186; 96372; 99284; J3010

== ENCOUNTER 2018-10-27 14:46 | Emergency (ER) | payer SELFPAY ==
--- OUTSIDE RECORDS SUMMARY | 2018-10-27 14:48 | XMS REPORT | Clinical Summary ---
:1965 Author Organization [facility] Address [address] [place] [address] Care Team Providers Name Role Phone Denae Primary Care Provider Allergies Active Allergy Reactions Severity Noted Date Comments Methylphenidate 05/07/2016 Medications Medication Sig Dispensed Refills Start Date End Date Status insulin glargine Inject subcutaneously 0 Active (LANTUS) 100 nightly. Use as unit/mL injection directed rOPINIRole Take 1 mg by mouth 3 0 Active (REQUIP) 1 MG (three) times daily. tablet pregabalin Take 50 mg by mouth 3 0 Active (LYRICA) 50 MG (three) times daily. capsule Active Problems Not on file Social History Tobacco Use Types Packs/Day Years Used Date Never Smoker Smokeless Tobacco: Never Used Alcohol Use Drinks/Week oz/Week Comments No Sex Assigned at Date Recorded Not on file Job Start Date Occupation Industry Not on file Not on file Not on file Travel History Travel Start Travel End No recent travel history available. Last Filed Vital Signs Not on file Plan of Treatment Not on file Results Not on fileafter 10/26/2017
--- OUTSIDE RECORDS SUMMARY | 2018-10-27 15:02 | XMS REPORT | CCD ---
:1965 Author Organization [facility] Team Providers Name Role Phone Nava Orta Consulting Provider Unavailable JUSTO Huang Consulting Provider Unavailable Sophia Schafer Consulting Provider Unavailable Franny Ramsey Consulting Provider Francis Haney Consulting Provider Giovani Edwards Consulting Provider Trini Hinojosa Consulting Provider Unavailable Cinthya Lee Consulting Provider Juliana Scales Consulting Provider Unavailable Sumit David Consulting Provider [phone] Debbi Funez Consulting Provider Unavailable Halie Beck Consulting Provider Unavailable Yin Muhammad Consulting Provider [phone] Sudhir Castillo Consulting Provider Unavailable Dakota Radford Consulting Provider Crystal Hinojosa Consulting Provider Unavailable [employer], Login Consulting Provider Unavailable Delilah Dash Consulting Provider Unavailable Cherise Yu Consulting Provider Gisella Purdy Consulting Provider Unavailable Opal Funez Consulting Provider Unavailable Letha Gomez Consulting Provider Unavailable James Deleon Consulting Provider [phone] Kuldeep Stoddard Consulting Provider Conchita Barnes Consulting Provider Unavailable SYSTEM, SYSTEM Consulting Provider Unavailable Pablo Fisher Consulting Provider [phone] Amanda Fisher Consulting Provider Unavailable Dee Dee Lowry Consulting Provider [phone] Remi Paulson Consulting Provider Ellen Albarran Consulting Provider Unavailable Moise Davis Consulting Provider Jamie Martínez Consulting Provider Blaine Smith Consulting Provider Unavailable LaureanoTyramiguelito Vang Consulting Provider Unavailable Irene Mckeon Consulting Provider Unavailable Bety Gomez Consulting Provider Gomez, Viviane Consulting Provider [phone] Rita Tinsley Consulting Provider Unavailable Andreina Cardoso Consulting Provider [phone] Alexia Gutierres Consulting Provider Unavailable Estefany Villasenor [...] based on the clinical recommendations of the [place] [employer].5Result Comment: Critical Result(s) called to augusta at 01/14/2011 16:22 by sa. Read back OK.6Interpretive Data: Reference Ranges : 0 - 7 days : 41 - 90 mg/dL7 days - 150 yrs : 70 - 99 mg/dL ( fasting), based on the clinical recommendations of the [place] [employer].7Interpretive Data: Elevated results are in [...]
--- OUTSIDE RECORDS SUMMARY | 2018-10-27 15:02 | XMS REPORT | CCD ---
:1965 Author Organization [facility] Team Providers Name Role Phone JUSTO Huang Consulting Provider Unavailable Sophia Schafer Consulting Provider Unavailable Pamella Vigil Consulting Provider Unavailable Maritza Terrell Consulting Provider [phone] Elizabeth Cummins Consulting Provider Unavailable Penelope Villatoro Consulting Provider Irene Phillip Consulting Provider Unavailable Tere Stoddard Consulting Provider Unavailable Alan Nixon Consulting Provider [phone] Sudhir Castillo Consulting Provider Unavailable Dakota Radford Consulting Provider Leyla Adair Consulting Provider Unavailable Elisabeth Mosley Consulting Provider Fabio Ricci Consulting Provider Unavailable Emily Clark Consulting Provider [phone] Cherise Yu Consulting Provider Gisella Purdy Consulting Provider Unavailable Hemant Villareal Consulting Provider [phone] Natanael Pickett Consulting Provider [phone] Isrrael Bueno Consulting Provider Unavailable Sarah Davis [...] 02/11/2011 02/11/2011 Discontinued PO, Drug form: TAB, [id number], Start date: 02/11/11 3:00:00, Duration: 30 day, Stop date: 03/12/11 15:00:00 Cipro 250 mg, 1 tab, Route: 02/11/2011 02/11/2011 Discontinued PO, Drug form: TAB, [id number], Start date: 02/11/11 11:00:00, Duration: 30 day, [...] Few /LPF ? (02/10/2011 22:26:00) ?? [facility] [place] Yeast [>None Seen /HPF] Occasional /HPF ? [...] based on the clinical recommendations of the [place] [employer].5Result Comment: Critical Result(s) called to uba_ at 02/10/2011 22:36 by rvs. Read back OK.6Interpretive Data: Reference Ranges : 0 - 7 days : 41 - 90 mg/dL7 days - 150 yrs : 70 - 99 mg/dL ( fasting), based on the clinical recommendations of the [place] [employer].HEMATOLOGY Most recent to oldest 1 [...]
--- OUTSIDE RECORDS SUMMARY | 2018-10-27 15:02 | XMS REPORT | CCD ---
:1965 Author Organization [facility] Team Providers Name Role Phone Mila Phelps [...] [Few /LPF] Rare /LPF (03/25/2011 20:00:00) [facility] [place] Yeast [None Seen /HPF] Occasional /HPF *ABN* [...] based on the clinical recommendations of the [place] [employer].HEMATOLOGY Most [...]
--- OUTSIDE RECORDS SUMMARY | 2018-10-27 15:02 | XMS REPORT | CCD ---
:1965 Author Organization [facility] Team Providers Name Role Phone [...]
--- OUTSIDE RECORDS SUMMARY | 2018-10-27 15:02 | XMS REPORT | CCD ---
:1965 [address] [facility] Care Team Providers Name Role Phone [...]
--- OUTSIDE RECORDS SUMMARY | 2018-10-27 15:03 | XMS REPORT | CCD ---
:1965 Author Organization [facility] Team Providers Name Role Phone Tay Roche Consulting Provider Allergies, Adverse Reactions, Alerts Substance Reaction Status NKDA1 Active 1Pt has no food allergy Problem List Condition Effective Dates Status Abdominal pain Active Cellulitis Active Chest pain Active Hyperglycemia Active UTI - Urinary tract infection Active Medications Medication Instructions Start Date End Date Status [place] 5/325 oral tablet 1-2 tab, PO, Q4-6H, [...] values reflect the clinical guidelines of the [place] Diabetes [employer].HEMATOLOGY Most recent to oldest [Reference [...]
--- OUTSIDE RECORDS SUMMARY | 2018-10-27 15:03 | XMS REPORT | CCD ---
:1965 Author Organization [facility] Care Team Providers Name Role Phone Lorie Isaacs Referring Provider Allergies, Adverse Reactions, Alerts Substance Reaction Status NKDA1 Active 1Pt has no food allergy Problem List Condition Effective Dates Status Abdominal pain Active Cellulitis Active Chest pain Active Hyperglycemia Active UTI - Urinary tract infection Active
--- OUTSIDE RECORDS SUMMARY | 2018-10-27 15:03 | XMS REPORT | CCD ---
:1965 Author Organization [facility] Care Team Providers Name Role [...]
--- OUTSIDE RECORDS SUMMARY | 2018-10-27 15:03 | XMS REPORT | CCD ---
:1965 Author Organization [facility] Team Providers Name Role [...] to Carisa at 11/28/2011 22:38:17 CDT by [facility]. Read back OK.4Interpretive Data: Adult reference range values reflect the clinical guidelines of the [place] Diabetes Association.HEMATOLOGY Most recent to oldest [Reference [...]
--- OUTSIDE RECORDS SUMMARY | 2018-10-27 15:03 | XMS REPORT | CCD ---
:1965 Author Organization [facility] Team Providers Name Role Phone Mila [...] BID, 04/20/2011 Ordered 20 tab, Substitution Allowed [place] 10/325 oral tablet 1 tab, PO, Q4-6H, [...] based on the clinical recommendations of the [place] Diabetes Association.HEMATOLOGY Most recent to oldest [Reference [...]
--- OUTSIDE RECORDS SUMMARY | 2018-10-27 15:03 | XMS REPORT | CCD ---
:1965 Author Organization [facility] Team Providers Name Role Phone Tay [...] based on the clinical recommendations of the [place] Diabetes Association.HEMATOLOGY Most recent to oldest [Reference [...]
--- OUTSIDE RECORDS SUMMARY | 2018-10-27 15:03 | XMS REPORT | CCD ---
:1965 Author Organization [facility] Team Providers Name Role Phone Penelope Villatoro [...]
--- OUTSIDE RECORDS SUMMARY | 2018-10-27 15:04 | XMS REPORT ---
:1965 Author Organization [facility] Address [address] [place] [address] Care Team Providers Name Role Phone PRINCESS [...] Item Value Reference Range Comments POC-GLUCOSE METER (BEGoodybag) (test 277 mg/dL 70-110 TESTED AT [address] ruep=9288) [facility] [address] POCT-GLUCOSE [id number] 11:53:00 Test Item Value Reference Range Comments POC-GLUCOSE METER (BEAKER) 411 mg/dL 70-110 TESTED AT [address] (test kcnt=3335) [facility] [address] RAD, SPINE, CERVICAL, 2 OR 3 [id number] 23:46:00Reason for exam:->neck painFINAL REPORT RAD, SPINE, [...] Grayson Verified Date/Time: 10/06/2017 23:46:30 Reading Location: [address] Reading [place], SPINE, CERVICAL, WO [id number] 23:44:00Reason for exam:->neck painReason for exam:-> EMESISIs [...] Verified Date /Time: 10/06/2017 23:44:40 Reading Location: [address] Transitional Reading Room CT, BRAIN, WITHOUT [id number] 23:24:00Reason for exam:->occipital headacheReason for exam:->EMESISIs the [...] MDReport Verified Date/Time: 10/06/2017 23:24:44 Reading Location: [address] Reading Room Electronically signed by: CARLA ODEN M.D. on 11:24 PMTROPONIN [id number] 22:56:00 Test Item Value Reference Range Comments TROPONIN I (BEAKER) (test xmhv=265) < ng/mL 0.00-0.15 Troponin I (TnI) levels [...] acute neurological disease, and persistent tachyarrhythmia.COMPREHENSIVE METABOLIC [id number] 22:50:00 Test Item Value Reference Range Comments TOTAL PROTEIN (BEAKER) 8.5 gm/dL 6.0-8.5 (test nfxf=776) ALBUMIN (BEAKER) (test 4.3 g/dL 3.5-5.0 unqv=7701) ALKALINE PHOSPHATASE 126 U/L 30-115 (BEAKER) (test xjyn=928) BILIRUBIN TOTAL (BEAKER) 0.5 mg/dL 0.1-1.2 (test npdl=360) SODIUM (BEAKER) (test 134 meq/L 135-148 dgec=088) POTASSIUM (BEAKER) (test 4.3 meq/L 3.6-5.5 sgvz=608) CHLORIDE (BEAKER) (test 97 meq/L 98-106 ofkj=510) CO2 (BEAKER) (test 24 meq/L 20-29 epxp=179) BLOOD UREA NITROGEN 17 mg/dL 10-26 (BEAKER) (test plhf=296) CREATININE (BEAKER) (test 1.01 mg/dL 0.50-1.20 zdhx=713) GLUCOSE RANDOM (BEAKER) 414 mg/dL 70-110 (test blii=975) CALCIUM (BEAKER) (test 9.6 mg/dL 8.5-10.5 ejhz=963) AST (SGOT) (BEAKER) (test 11 U/L 5-40 pxvo=858) ALT (SGPT) (BEAKER) (test 9 U/L 5-50 cpvk=203) EGFR (BEAKER) (test 58 mL/min/1.73 sq m ESTIMATED GFR IS NOT rgra=5122) ACCURATE CREATININE CLEARANCE IN PREDICTING GLOMERULAR FILTRATION RATE. ESTIMATED GFR IS NOT APPLICABLE FOR DIALYSIS PATIENTS. [id number] 22:42:00 Test Item Value Reference Range Comments AMYLASE (BEAKER) (test kqni=581) 58 U/L 30-110 CBC W/PLT COUNT & AUTO [id number] 22:22:00 Test Item Value Reference Range Comments WHITE BLOOD CELL COUNT (BEAKER) (test kpth=154) 10.9 K/ L 4.0-10.0 RED BLOOD CELL COUNT (BEAKER) (test ivbm=219) 4.45 M/ L 4.00-5.00 HEMOGLOBIN (BEAKER) (test azly=681) 12.2 GM/DL 12.0-15.0 HEMATOCRIT (BEAKER) (test dbiq=877) 37.0 % 36.0-45.0 MEAN CORPUSCULAR VOLUME (BEAKER) (test fyug=605) 83.2 fL 82.0-99.0 MEAN CORPUSCULAR HEMOGLOBIN (BEAKER) (test 27.4 pg 27.0-33.0 oomm=097) MEAN CORPUSCULAR HEMOGLOBIN CONC (BEAKER) (test 32.9 GM/DL 32.0-36.0 dykd=055) RED CELL DISTRIBUTION WIDTH (BEAKER) (test 14.0 % 10.3-14.2 uodk=068) PLATELET COUNT (BEAKER) (test gaut=242) 359 K/CU MM 150-430 MEAN PLATELET VOLUME (BEAKER) (test pnzm=751) 7.8 fL 6.5-10.5 NUCLEATED RED BLOOD CELLS (BEAKER) (test 0 /100 WBC 0-0 cqrp=513) NEUTROPHILS RELATIVE PERCENT (BEAKER) (test 71 % igpd=686) LYMPHOCYTES RELATIVE PERCENT (BEAKER) (test 23 % vpvz=709) MONOCYTES RELATIVE PERCENT (BEAKER) (test 5 % vsso=872) EOSINOPHILS RELATIVE PERCENT (BEAKER) (test 0 % wzok=986) BASOPHILS RELATIVE PERCENT (BEAKER) (test 1 % tpng=585) NEUTROPHILS ABSOLUTE COUNT (BEAKER) (test 7.70 K/ L 1.80-8.00 shdl=369) LYMPHOCYTES ABSOLUTE COUNT (BEAKER) (test 2.50 K/ L 1.48-4.50 fcjc=630) MONOCYTES ABSOLUTE COUNT (BEAKER) (test 0.60 K/ L 0.00-1.30 bnyl=361) EOSINOPHILS ABSOLUTE COUNT (BEAKER) (test 0.00 K/ L 0.00-0.50 zkdz=590) BASOPHILS ABSOLUTE COUNT (BEAKER) (test 0.10 K/ L 0.00-0.20 jmqp=950) URINALYSIS W/ [id number] 22:09:00 Test Item Value Reference Range Comments COLOR (BEAKER) (test qxrv=539) Yellow CLARITY (BEAKER) (test toor=822) Clear SPECIFIC GRAVITY UA (BEAKER) (test umaa=239) <= 1.001-1.035 PH UA (BEAKER) (test zvvb=132) 6.0 5.0-8.0 PROTEIN UA (BEAKER) (test raqj=590) Negative Negative GLUCOSE UA (BEAKER) (test njic=729) >=1000 mg/dL Negative KETONES UA (BEAKER) (test cfwi=854) Negative Negative BILIRUBIN UA (BEAKER) (test nudz=844) Negative Negative BLOOD UA (BEAKER) (test rfgr=679) Trace Negative NITRITE UA (BEAKER) (test cnwa=988) Positive Negative LEUKOCYTE ESTERASE UA (BEAKER) (test kkvj=065) Negative Negative UROBILINOGEN UA (BEAKER) (test gmgb=381) 0.2 mg/dL 0.2-1.0 BACTERIA (BEAKER) (test vjty=575) Many RBC UA-MANUAL (BEAKER) (test xadc=0106) <5 /HPF WBC UA-MANUAL (BEAKER) (test fqvs=9769) 10-20 /HPF SQUAMOUS EPITHELIAL MANUAL (BEAKER) (test <5 /HPF xhda=5014) SOURCE(BEAKER) (test ohfl=6341) POCT-GLUCOSE [id number] 07:19:00 Test Item Value Reference Range Comments POC-GLUCOSE METER (BEAKER) 241 mg/dL 70-110 TESTED AT [address] (test fqhm=8323) [address] [facility] [address] [place], [id number] 19:16:00FINAL REPORT CT OF THE ABDOMEN AND [...] MDReport Verified Date/Time: 09/22/2017 19:16:29 Reading Location: [address] Consult Reading Room [facility] METABOLIC [id number] 17: 37:00 Test Item Value Reference Range Comments SODIUM (BEAKER) (test 134 meq/L 135-148 wceu=918) POTASSIUM (BEAKER) (test 5.1 meq/L 3.6-5.5 Specimen markedly shwc=572) hemolyzed CHLORIDE (BEAKER) (test 98 meq/L 98-106 jhbk=587) CO2 (BEAKER) (test 16 meq/L 20-29 pvsc=243) BLOOD UREA NITROGEN 9 mg/dL 10-26 (BEAKER) (test hkli=777) CREATININE (BEAKER) (test 0.92 mg/dL 0.50-1.20 Specimen markedly eygk=289) hemolyzed GLUCOSE RANDOM (BEAKER) 408 mg/dL 70-110 (test dslj=641) CALCIUM (BEAKER) (test 9.6 mg/dL 8.5-10.5 ynyk=658) EGFR (BEAKER) (test 64 mL/min/1.73 sq m ESTIMATED GFR IS NOT ugdf=4535) ACCURATE CREATININE CLEARANCE IN PREDICTING GLOMERULAR FILTRATION RATE. ESTIMATED GFR IS NOT APPLICABLE FOR DIALYSIS PATIENTS. TROPONIN [id number] 17:07:00 Test Item Value Reference Range Comments TROPONIN I (BEAKER) (test rlyc=489) < ng/mL 0.00-0.15 Troponin I (TnI) levels [...] and persistent tachyarrhythmia.CREATINE KINASE (CK), TOTAL AND [id number] 17:06:00 Test Item Value Reference Range Comments CREATINE KINASE TOTAL (BEAKER) (test rqbj=194) 68 U/L 25-235 CREATINE KINASE-MB (BEAKER) (test ifnl=105) 0.6 ng/mL 0.0-4.9 CREATINE KINASE-MB INDEX (BEAKER) (test niek=295) 0.9 % CK-MB Reference Range:<5 Normal5-10 Borderline>10 [id number] 17:00:00 Test Item Value Reference Range Comments LIPASE (BEAKER) (test gtqh=314) 26 U/L 6-51 [id number] 16:51:00 Test Item Value Reference Range Comments AMYLASE (BEAKER) (test ssyf=117) 32 U/L 30-110 Specimen markedly hemolyzed URINALYSIS W/ [id number] 16:21:00 Test Item Value Reference Range Comments COLOR (BEAKER) (test tzik=737) Yellow CLARITY (BEAKER) (test iwoi=365) Slightly Cloudy SPECIFIC GRAVITY UA (BEAKER) (test wsnf=854) <= 1.001-1.035 PH UA (BEAKER) (test srow=729) 5.5 5.0-8.0 PROTEIN UA (BEAKER) (test gtlr=090) Negative Negative GLUCOSE UA (BEAKER) (test fitw=700) >=1000 mg/dL Negative KETONES UA (BEAKER) (test zrvi=115) Negative Negative BILIRUBIN UA (BEAKER) (test mudp=222) Negative Negative BLOOD UA (BEAKER) (test tfaa=149) Trace Negative NITRITE UA (BEAKER) (test ehif=294) Positive Negative LEUKOCYTE ESTERASE UA (BEAKER) (test Negative Negative gxdx=959) UROBILINOGEN UA (BEAKER) (test wiqd=538) 0.2 mg/dL 0.2-1.0 BACTERIA (BEAKER) (test mnyj=781) Many AMORPHOUS CRYSTALS (BEAKER) (test vayq=5416) Moderate RBC UA-MANUAL (BEAKER) (test topk=7189) 5-10 /HPF WBC UA-MANUAL (BEAKER) (test slaw=3667) 50-100 /HPF SQUAMOUS EPITHELIAL MANUAL (BEAKER) (test <5 /HPF ryfv=4182) SOURCE(BEAKER) (test nese=1582) CBC W/PLT COUNT & AUTO [id number] 16:15:00 Test Item Value Reference Range Comments WHITE BLOOD CELL COUNT (BEAKER) (test ehse=654) 6.8 K/ L 4.0-10.0 RED BLOOD CELL COUNT (BEAKER) (test ohmt=749) 4.46 M/ L 4.00-5.00 HEMOGLOBIN (BEAKER) (test xvpv=011) 12.5 GM/DL 12.0-15.0 HEMATOCRIT (BEAKER) (test uhoa=426) 37.3 % 36.0-45.0 MEAN CORPUSCULAR VOLUME (BEAKER) (test juoq=354) 83.7 fL 82.0-99.0 MEAN CORPUSCULAR HEMOGLOBIN (BEAKER) (test 28.0 pg 27.0-33.0 aole=948) MEAN CORPUSCULAR HEMOGLOBIN CONC (BEAKER) (test 33.4 GM/DL 32.0-36.0 ujqq=240) RED CELL DISTRIBUTION WIDTH (BEAKER) (test 13.4 % 10.3-14.2 rfhb=106) PLATELET COUNT (BEAKER) (test elry=866) 340 K/CU MM 150-430 MEAN PLATELET VOLUME (BEAKER) (test toiv=802) 7.9 fL 6.5-10.5 NUCLEATED RED BLOOD CELLS (BEAKER) (test 0 /100 WBC 0-0 lzeq=638) NEUTROPHILS RELATIVE PERCENT (BEAKER) (test 60 % ykzz=275) LYMPHOCYTES RELATIVE PERCENT (BEAKER) (test 32 % iyez=364) MONOCYTES RELATIVE PERCENT (BEAKER) (test 7 % dcxk=528) EOSINOPHILS RELATIVE PERCENT (BEAKER) (test 1 % owxq=404) BASOPHILS RELATIVE PERCENT (BEAKER) (test 0 % yzwo=899) NEUTROPHILS ABSOLUTE COUNT (BEAKER) (test 4.00 K/ L 1.80-8.00 rdai=649) LYMPHOCYTES ABSOLUTE COUNT (BEAKER) (test 2.20 K/ L 1.48-4.50 mwsv=319) MONOCYTES ABSOLUTE COUNT (BEAKER) (test 0.50 K/ L 0.00-1.30 slfg=112) EOSINOPHILS ABSOLUTE COUNT (BEAKER) (test 0.10 K/ L 0.00-0.50 vkcp=825) BASOPHILS ABSOLUTE COUNT (BEAKER) (test 0.00 K/ L 0.00-0.20 gvln=541) POCT-GLUCOSE [id number] 15:36:00 Test Item Value Reference Range Comments POC-GLUCOSE METER (BEAKER) 284 mg/dL 70-110 TESTED AT [address] (test sglf=6979) [address] [facility] [address] [place], [id number] 15:32:00Reason for exam:->LLQ ABD PAINIs the patient [...] Valdezort Verified Date/Time: 07/07/2017 15:32:20 Reading Location: [place] [id number] [place] Body Reading Room [id number] 14:41:00 Test Item Value Reference Range Comments LIPASE (BEAKER) (test mhdm=233) 32 U/L 6-51 COMPREHENSIVE METABOLIC [id number] 14:40:00 Test Item Value Reference Range Comments TOTAL PROTEIN (BEAKER) 7.1 gm/dL 6.0-8.5 (test vylm=303) ALBUMIN (BEAKER) (test 3.6 g/dL 3.5-5.0 nqzh=1424) ALKALINE PHOSPHATASE 159 U/L 30-115 (BEAKER) (test kxkt=801) BILIRUBIN TOTAL (BEAKER) 0.3 mg/dL 0.1-1.2 (test osxp=427) SODIUM (BEAKER) (test 132 meq/L 135-148 acvc=876) POTASSIUM (BEAKER) (test 4.1 meq/L 3.6-5.5 fqoj=209) CHLORIDE (BEAKER) (test 98 meq/L 98-106 qzlz=843) CO2 (BEAKER) (test 27 meq/L 20-29 nlqr=496) BLOOD UREA NITROGEN 13 mg/dL 10-26 (BEAKER) (test mvzp=308) CREATININE (BEAKER) (test 0.80 mg/dL 0.50-1.20 uopv=160) GLUCOSE RANDOM (BEAKER) 399 mg/dL 70-110 (test nuct=798) CALCIUM (BEAKER) (test 8.9 mg/dL 8.5-10.5 dmnb=283) AST (SGOT) (BEAKER) (test 9 U/L 5-40 yyxl=616) ALT (SGPT) (BEAKER) (test 11 U/L 5-50 tfas=801) EGFR (BEAKER) (test 76 mL/min/1.73 sq m ESTIMATED GFR IS NOT zisw=8200) ACCURATE CREATININE CLEARANCE IN PREDICTING GLOMERULAR FILTRATION RATE. ESTIMATED GFR IS NOT APPLICABLE FOR DIALYSIS PATIENTS. POCT-GLUCOSE [id number] 14:10:00 Test Item Value Reference Range Comments POC-GLUCOSE METER (BEAKER) 352 mg/dL 70-110 TESTED AT [facility] [address] [facility] (test woro=8188) [facility] [address] CBC W/PLT COUNT & AUTO [id number] 13:30:00 Test Item Value Reference Range Comments WHITE BLOOD CELL COUNT (BEAKER) (test gtqw=002) 5.5 K/ L 4.0-10.0 RED BLOOD CELL COUNT (BEAKER) (test cuit=789) 3.93 M/ L 4.00-5.00 HEMOGLOBIN (BEAKER) (test agnf=603) 10.9 GM/DL 12.0-15.0 HEMATOCRIT (BEAKER) (test hsmm=132) 32.8 % 36.0-45.0 MEAN CORPUSCULAR VOLUME (BEAKER) (test lahl=027) 83.4 fL 82.0-99.0 MEAN CORPUSCULAR HEMOGLOBIN (BEAKER) (test 27.8 pg 27.0-33.0 kucq=745) MEAN CORPUSCULAR HEMOGLOBIN CONC (BEAKER) (test 33.3 GM/DL 32.0-36.0 vtgn=606) RED CELL DISTRIBUTION WIDTH (BEAKER) (test 13.6 % 10.3-14.2 vkwz=032) PLATELET COUNT (BEAKER) (test haem=165) 344 K/CU MM 150-430 MEAN PLATELET VOLUME (BEAKER) (test zsnb=812) 8.5 fL 6.5-10.5 NEUTROPHILS RELATIVE PERCENT (BEAKER) (test 59 % ukrc=219) LYMPHOCYTES RELATIVE PERCENT (BEAKER) (test 36 % rrys=509) MONOCYTES RELATIVE PERCENT (BEAKER) (test 4 % jssi=394) EOSINOPHILS RELATIVE PERCENT (BEAKER) (test 1 % zbia=903) BASOPHILS RELATIVE PERCENT (BEAKER) (test 0 % ctue=837) NEUTROPHILS ABSOLUTE COUNT (BEAKER) (test 3.20 K/ L 1.80-8.00 lwxj=183) LYMPHOCYTES ABSOLUTE COUNT (BEAKER) (test 2.00 K/ L 1.48-4.50 veya=492) MONOCYTES ABSOLUTE COUNT (BEAKER) (test 0.20 K/ L 0.00-1.30 hvgl=213) EOSINOPHILS ABSOLUTE COUNT (BEAKER) (test 0.10 K/ L 0.00-0.50 ovyz=739) BASOPHILS ABSOLUTE COUNT (BEAKER) (test 0.00 K/ L 0.00-0.20 qpgd=940) URINALYSIS W/ [id number] 13:01:00 Test Item Value Reference Range Comments COLOR (BEAKER) (test prff=398) Light Yellow CLARITY (BEAKER) (test xsfl=386) Clear SPECIFIC GRAVITY UA (BEAKER) (test gxmp=198) <= 1.001-1.035 PH UA (BEAKER) (test qkxe=217) 6.0 5.0-8.0 PROTEIN UA (BEAKER) (test ieff=732) Negative Negative GLUCOSE UA (BEAKER) (test opgr=292) >=1000 mg/dL Negative KETONES UA (BEAKER) (test nkhd=739) Negative Negative BILIRUBIN UA (BEAKER) (test cwgq=459) Negative Negative BLOOD UA (BEAKER) (test vrzb=797) Negative Negative NITRITE UA (BEAKER) (test xnil=567) Negative Negative LEUKOCYTE ESTERASE UA (BEAKER) (test Negative Negative gwsi=334) UROBILINOGEN UA (BEAKER) (test gkwd=254) 0.2 mg/dL 0.2-1.0 BACTERIA (BEAKER) (test cxaq=038) Few RBC UA-MANUAL (BEAKER) (test ctll=5570) None Seen /HPF WBC UA-MANUAL (BEAKER) (test ihin=0553) <5 /HPF SQUAMOUS EPITHELIAL MANUAL (BEAKER) (test None Seen /HPF gbva=1590) SOURCE(BEAKER) (test mmyk=4992) KETONE, [id number] 12:58:00 Test Item Value Reference Range Comments KETONES, BLOOD (BEAKER) (test wwkx=7567) 0.1 mmol/L <0.4 BLOOD GAS, [id number] 12:48:00 Test Item Value Reference Range Comments PH VENOUS (BEAKER) (test tfiq=651) 7.38 7.32-7.42 PCO2 VENOUS (BEAKER) (test yodr=747) 46 mmHg 41-51 PO2 VENOUS (BEAKER) (test fwkw=739) 73 mmHg 25-40 O2 SATURATION VENOUS (BEAKER) (test lohp=862) 94.5 % 40.0-70.0 HCO3 VENOUS (BEAKER) (test ahha=641) 27 mmol/L 21-29 BASE EXCESS VENOUS (BEAKER) (test acac=743) 1.3 mmol/L -2.0-3.0 PATIENT TEMPERATURE (BEAKER) (test khgz=6642) 37.0 C FIO2 (BEAKER) (test icld=4796) 37.0 % POCT-GLUCOSE [id number] 12:04:00 Test Item Value Reference Range Comments POC-GLUCOSE METER (BEAKER) > mg/dL 70-110 OUTSIDE MEASURING RANGETESTED AT (test dzgd=5173) [address] [address] URINE [id number] 09:22:00 Test Item Value Reference Range Comments CULTURE (BEAKER) (test KLEBSIELLA PNEUMONIAE >100,000 col/mL wlpr=9587) SSP PNEUMONIAE Klebsiella pneumoniae ssp pneumoniae Ampicillin + Sulbactam (test code=6) Cefoxitin (test code=68) Ceftriaxone (test code=52) Gentamicin (test code=18) Levofloxacin (test code=22) Nitrofurantoin (test code=23) Piperacillin + Tazobactam (test code=29) Tetracycline (test code=2) Tobramycin (test code=25) Trimethoprim + Sulfamethoxazole (test code=47) POCT-GLUCOSE [id number] 23:15:00 Test Item Value Reference Range Comments POC-GLUCOSE METER (BEAKER) 227 mg/dL 70-110 TESTED AT [address] (test dvac=7669) [facility] [address] URINALYSIS W/ [id number] 22:36:00 Test Item Value Reference Range Comments COLOR (BEAKER) (test mqqe=128) Yellow CLARITY (BEAKER) (test zfmz=694) Clear SPECIFIC GRAVITY UA (BEAKER) (test zffb=169) <= 1.001-1.035 PH UA (BEAKER) (test nnlx=708) 6.5 5.0-8.0 PROTEIN UA (BEAKER) (test pdew=963) Negative Negative GLUCOSE UA (BEAKER) (test ekff=251) >=1000 mg/dL Negative KETONES UA (BEAKER) (test pvpf=678) Trace Negative BILIRUBIN UA (BEAKER) (test mgav=473) Negative Negative BLOOD UA (BEAKER) (test othe=784) Negative Negative NITRITE UA (BEAKER) (test ohxw=756) Positive Negative LEUKOCYTE ESTERASE UA (BEAKER) (test Negative Negative zdrm=544) UROBILINOGEN UA (BEAKER) (test cbbc=842) 0.2 mg/dL 0.2-1.0 BACTERIA (BEAKER) (test uzet=135) Many RBC UA-MANUAL (BEAKER) (test nzfm=7330) <5 /HPF WBC UA-MANUAL (BEAKER) (test bjfy=1910) <5 /HPF SQUAMOUS EPITHELIAL MANUAL (BEAKER) (test None Seen /HPF mzdi=1748) SOURCE(BEAKER) (test qjbw=4778) KETONE, [id number] 22:32:00 Test Item Value Reference Range Comments KETONES, BLOOD (BEAKER) (test dvrt=9109) 0.6 mmol/L <0.4 BLOOD GAS, [id number] 22:30:00 Test Item Value Reference Range Comments PH VENOUS (BEAKER) (test uudp=607) 7.39 7.32-7.42 PCO2 VENOUS (BEAKER) (test uwvt=500) 48 mmHg 41-51 PO2 VENOUS (BEAKER) (test jxkr=495) 28 mmHg 25-40 O2 SATURATION VENOUS (BEAKER) (test kjau=772) 51.3 % 40.0-70.0 HCO3 VENOUS (BEAKER) (test dctn=687) 29 mmol/L 21-29 BASE EXCESS VENOUS (BEAKER) (test adgu=668) 3.0 mmol/L -2.0-3.0 PATIENT TEMPERATURE (BEAKER) (test bupn=1158) 37.0 C FIO2 (BEAKER) (test wnyw=5047) 21.0 % SCREEN, [id number] 22:29:00 Test Item Value Reference Range Comments TEST URINE (BEAKER) (test bfwz=686) Negative TROPONIN [id number] 21:42:00 Test Item Value Reference Range Comments TROPONIN I (BEAKER) (test dsrg=520) < ng/mL 0.00-0.15 Troponin I (TnI) levels [...] and persistent tachyarrhythmia.CREATINE KINASE (CK), TOTAL AND [id number] 21:41:00 Test Item Value Reference Range Comments CREATINE KINASE TOTAL (BEAKER) (test jqvz=650) 78 U/L 25-235 CREATINE KINASE-MB (BEAKER) (test guac=465) 0.4 ng/mL 0.0-4.9 CREATINE KINASE-MB INDEX (BEAKER) (test xlyb=882) 0.5 % CK-MB Reference Range:<5 Normal5-10 Borderline>10 AbnormalCOMPREHENSIVE METABOLIC [id number] 21:34:00 Test Item Value Reference Range Comments TOTAL PROTEIN (BEAKER) 8.8 gm/dL 6.0-8.5 Specimen moderately (test tycb=872) hemolyzed ALBUMIN (BEAKER) (test 4.3 g/dL 3.5-5.0 Specimen moderately hiwu=1158) hemolyzed ALKALINE PHOSPHATASE 124 U/L 30-115 (BEAKER) (test snhy=712) BILIRUBIN TOTAL (BEAKER) 0.4 mg/dL 0.1-1.2 Specimen moderately (test ewwb=660) hemolyzed SODIUM (BEAKER) (test 130 meq/L 135-148 ppbz=761) POTASSIUM (BEAKER) (test 5.2 meq/L 3.6-5.5 Specimen moderately ordk=040) hemolyzed CHLORIDE (BEAKER) (test 93 meq/L 98-106 zxvl=786) CO2 (BEAKER) (test 24 meq/L 20-29 tsre=108) BLOOD UREA NITROGEN 11 mg/dL 10-26 (BEAKER) (test ynna=753) CREATININE (BEAKER) (test 0.90 mg/dL 0.50-1.20 Specimen moderately vtqk=365) hemolyzed GLUCOSE RANDOM (BEAKER) 483 mg/dL 70-110 (test dojy=089) CALCIUM (BEAKER) (test 9.6 mg/dL 8.5-10.5 lwlw=705) AST (SGOT) (BEAKER) (test 21 U/L 5-40 Specimen moderately aaid=252) hemolyzed ALT (SGPT) (BEAKER) (test 14 U/L 5-50 Specimen moderately xboe=305) hemolyzed EGFR (BEAKER) (test 66 mL/min/1.73 sq m ESTIMATED GFR IS NOT zpqm=6052) ACCURATE CREATININE CLEARANCE IN PREDICTING GLOMERULAR FILTRATION RATE. ESTIMATED GFR IS NOT APPLICABLE FOR DIALYSIS PATIENTS. [id number] 21:32:00 Test Item Value Reference Range Comments LIPASE (BEAKER) (test mwla=879) 28 U/L 6-51 CBC W/PLT COUNT & AUTO [id number] 20:55:00 Test Item Value Reference Range Comments WHITE BLOOD CELL COUNT (BEAKER) (test zupq=078) 6.6 K/ L 4.0-10.0 RED BLOOD CELL COUNT (BEAKER) (test nxkr=808) 4.78 M/ L 4.00-5.00 HEMOGLOBIN (BEAKER) (test tcto=354) 12.9 GM/DL 12.0-15.0 HEMATOCRIT (BEAKER) (test jziz=477) 39.6 % 36.0-45.0 MEAN CORPUSCULAR VOLUME (BEAKER) (test atpu=418) 82.8 fL 82.0-99.0 MEAN CORPUSCULAR HEMOGLOBIN (BEAKER) (test 26.9 pg 27.0-33.0 aaba=429) MEAN CORPUSCULAR HEMOGLOBIN CONC (BEAKER) (test 32.5 GM/DL 32.0-36.0 gbze=469) RED CELL DISTRIBUTION WIDTH (BEAKER) (test 14.0 % 10.3-14.2 fxod=801) PLATELET COUNT (BEAKER) (test mbqm=718) 335 K/CU MM 150-430 MEAN PLATELET VOLUME (BEAKER) (test wwmj=596) 7.7 fL 6.5-10.5 NUCLEATED RED BLOOD CELLS (BEAKER) (test 0 /100 WBC 0-0 snvi=959) NEUTROPHILS RELATIVE PERCENT (BEAKER) (test 56 % vrhd=919) LYMPHOCYTES RELATIVE PERCENT (BEAKER) (test 36 % jfgr=347) MONOCYTES RELATIVE PERCENT (BEAKER) (test 6 % qomx=570) EOSINOPHILS RELATIVE PERCENT (BEAKER) (test 2 % qorw=666) BASOPHILS RELATIVE PERCENT (BEAKER) (test 0 % hmwf=880) NEUTROPHILS ABSOLUTE COUNT (BEAKER) (test 3.70 K/ L 1.80-8.00 kysa=252) LYMPHOCYTES ABSOLUTE COUNT (BEAKER) (test 2.30 K/ L 1.48-4.50 jsqy=364) MONOCYTES ABSOLUTE COUNT (BEAKER) (test 0.40 K/ L 0.00-1.30 wysx=529) EOSINOPHILS ABSOLUTE COUNT (BEAKER) (test 0.20 K/ L 0.00-0.50 uwjs=524) BASOPHILS ABSOLUTE COUNT (BEAKER) (test 0.00 K/ L 0.00-0.20 zlec=966) POCT-GLUCOSE [id number] 20:56:00 Test Item Value Reference Range Comments POC-GLUCOSE METER (BEAKER) 446 mg/dL 70-110 Notified KIRIT DALTON/TESTED AT [facility] (test vgay=7756) [address] [facility] [place] [id number]
--- NOTE | 2018-10-27 16:07 | RAD REPORT ---
EXAM DESCRIPTION: US - Extremity Venous Uni Ltd - 10/27/2018 3:55 pm CLINICAL HISTORY: Pain;Swelling Leg swelling and edema. COMPARISON: <Comparisons> FINDINGS: Left lower extremity venous system was interrogated with Doppler technique. Normal flow, c ompressibility and augmentation was noted. There is no DVT present. IMPRESSION: No evidence of left lower extremity deep venous thrombosis.
--- NOTE | 2018-10-27 16:31 | RAD REPORT ---
EXAM DESCRIPTION: RAD - Foot Left 3 View - 10/27/2018 4:05 pm CLINICAL HISTORY: Pain;Swelling COMPARISON: <Comparisons> FINDINGS: Soft tissue swelling seen along the the dorsum of the forefoot. Large posterior calcaneal spur noted. No acute fracture or dislocation.
--- NOTE | 2018-10-27 16:34 | RAD REPORT ---
EXAM DESCRIPTION: RAD - Knee Left 3 View - 10/27/2018 4:07 pm CLINICAL HISTORY: Pain;Swelling COMPARISON: <Comparisons> FINDINGS: Mild medial compartment space narrowing is present. No fracture, dislocation or aggressive marrow pattern. No joint effusion seen.
[2018-10-27 16:37] LABS: Absolute Lymphocytes (CBC) 2.1 K/uL (0.7-4.9); Basophils % 0.8 % (0-1.3); Hematocrit 34.3 % (36.0-45.0); Lymphocytes % 30.6 % (15.3-44.8); MPV 7.8 fL (7.6-11.3); Monocytes % 6.1 % (3.3-12.3); RBC Red Blood Cell Count 4.12 M/uL (3.86-4.86)
[2018-10-27] MEDS ORDERED: MORPHINE 2 MG/ML SYR ONE (16:37)
[2018-10-27] MEDS ORDERED: ONDANSETRON 4 MG/2 ML VIAL ONE (16:37)
[2018-10-27 16:53] LABS: Albumin 3.7 g/dL (3.4-5.0); Bilirubin Total 0.2 mg/dL (0.2-1.0); Potassium 4.3 mmol/L (3.5-5.1); Protein, Total 8.2 g/dL (6.4-8.2)
[2018-10-27] MEDS ORDERED: INSULIN -REGULAR HUMAN 50 UNIT/0.5 ML ML ONE (17:29)
[2018-10-27] MEDS ORDERED: NA CHLORIDE 0.9% 1,000 ML ONE (17:29)
--- NOTE | 2018-10-27 18:07 | EDPHYS ---
Physician Documentation [facility] Name: Melissa De Oliveira Age: 53 yrs Sex: Female : 1965 Arrival Date: 10/27/2018 Time: 14:47 Bed 19 Private MD: out of town, doctor ED Physician Yogesh Jimenez HPI: 10/27 15:51 This 53 yrs old Female presents to ER via Ambulatory with complaints of Left pm1 Knee Pain, Left Leg Swelling. 15:51 The patient presents with pain, swelling. The complaints affect the medial aspect of pm1 left knee and left foot. Context: The problem was sustained at an unknown site, resulted from unknown but present with dependence and standing, the patient can fully bear weight, the patient is able to ambulate, Problem is a result from a previous injury: No. Onset: The symptoms/episode began/occurred 4 day(s) ago. Modifying factors: The symptoms are alleviated by elevating leg, resolved with sleeping at night. the symptoms are aggravated by dependence, standing, walking for extended time frame. Associated signs and symptoms: Pertinent negatives calf tenderness, shortness of breath, chest pain. Treatment prior to arrival includes: no previous treatment. Severity of symptoms: in the emergency department the symptoms are unchanged. The patient has not experienced similar symptoms in the past. The patient has not recently seen a physician. 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 - Social history:: Smoking status: Patient/guardian denies using tobacco. - Ebola Screening: : Patient negative for fever greater than or equal to 101.5 degrees Fahrenheit, and additional compatible Ebola Virus Disease symptoms Patient denies exposure to infectious person Patient denies travel to an Ebola-affected area in the 21 days before illness onset No symptoms or risks identified at this time. ROS: 15:51 Constitutional: Negative for fever, chills, and weight loss, Eyes: Negative for injury, pm1 pain, redness, and discharge, ENT: Negative for injury, pain, and discharge, Neck: Negative for injury, pain, and swelling, Cardiovascular: Negative for chest pain, palpitations, and edema, Respiratory: Negative for shortness of breath, cough, wheezing, and pleuritic chest pain, Abdomen/GI: Negative for abdominal pain, nausea, vomiting, diarrhea, and constipation, Back: Negative for injury and pain, : Negative for injury, bleeding, discharge, and swelling. 15:51 Skin: Negative for injury, rash, and discoloration, Neuro: Negative for headache, weakness, numbness, tingling, and seizure. 15:51 MS/extremity: Positive for pain, swelling, of the left foot and medial aspect of left knee, Negative for decreased range of motion, deformity. Exam: 15:51 Constitutional: This is a well developed, well nourished patient who is awake, alert, pm1 and in no acute distress. Head/Face: Normocephalic, atraumatic. Eyes: Pupils equal round and reactive to light, extra-ocular motions intact. Lids and lashes normal. Conjunctiva and sclera are non-icteric and not injected. Cornea within normal limits. Periorbital areas with no swelling, redness, or edema. ENT: Nares patent. No nasal discharge, no septal abnormalities noted. Tympanic membranes are normal and external auditory canals are clear. Oropharynx with no redness, swelling, or masses, exudates, or evidence of obstruction, uvula midline. Mucous membranes moist. Neck: Trachea midline, no thyromegaly or masses palpated, and no cervical lymphadenopathy. Supple, full range of motion without nuchal rigidity, or vertebral point tenderness. No Meningismus. Chest/axilla: Normal chest wall appearance and motion. Nontender with no deformity. No lesions are appreciated. Cardiovascular: Regular rate and rhythm with a normal S1 and S2. No gallops, murmurs, or rubs. Normal PMI, no JVD. No pulse deficits. Respiratory: Lungs have equal breath sounds bilaterally, clear to auscultation and percussion. No rales, rhonchi or wheezes noted. No increased work of breathing, no retractions or nasal flaring. Abdomen/GI: Soft, non-tender, with normal bowel sounds. No distension or tympany. No guarding or rebound. No evidence of tenderness throughout. Back: No spinal tenderness. No costovertebral tenderness. Full range of motion. 15:51 Musculoskeletal/extremity: Extremities: noted in the left knee: There is no evidence of decreased ROM, FROM to left knee intact and nonpainful. Tenderness to medial aspect of left knee. No swelling present to LLE, ROM: intact in all extremities, full active range of motion, in the left knee, full passive range of motion, in the left knee, Circulation is intact in all extremities. Sensation intact. 15:51 Skin: Appearance: normal except for affected area, cellulitis, is not appreciated, injury, ulceration dorsum of left foot without any surrounding cellulitis, erythema. 15:51 Neuro: Orientation: is normal, Motor: is normal, moves all fours. pm1 Vital Signs: 14:52 BP 130 / 68; Pulse 87; Resp 16; Temp 98.4(TE); Pulse Ox 100% on R/A; Weight 45.36 kg; hj Height 5 ft. 4 in. (162.56 cm); Pain 6/10; 16:25 BP 156 / 81; Pulse 75; Resp 16; Pulse Ox 98% ; bp 17:30 BP 138 / 67; Pulse 87; Resp 18 S; Pulse Ox 100% on R/A; ca1 18:37 BP 146 / 68; Pulse 81; Resp 19 S; Temp 97.9(O); Pulse Ox 100% on R/A; ca1 14:52 Body Mass Index 17.17 (45.36 kg, 162.56 cm) MDM: 15:08 Patient medically screened. [facility] 16:02 Data reviewed: vital signs. Data interpreted: Pulse oximetry: on room air is 100 %. pm1 Interpretation: normal. 18:05 Counseling: I had a detailed discussion with the patient and/or guardian regarding: the pm1 historical points, exam findings, and any diagnostic results supporting the discharge/admit diagnosis, lab results, radiology results, the need for outpatient follow up, to return to the emergency department if symptoms worsen or persist or if there are any questions or concerns that arise at home. 10/27 15:27 Order name: CBC with Diff; Complete Time: 16:55 pm1 10/27 15:27 Order name: CMP; Complete Time: 17:03 pm1 10/27 15:27 Order name: Extremity Venous Uni Ltd US; Complete Time: 16:15 pm1 10/27 15:27 Order name: Foot Left 3 View XRAY; Complete Time: 16:55 pm1 10/27 15:27 Order name: Knee Left 3 View XRAY; Complete Time: 16:55 pm1 10/27 17:52 Order name: Glucose, Ancillary Testing; Complete Time: 18:04 EDMS 10/27 15:27 Order name: IV Saline Lock; Complete Time: 16:15 pm1 Administered Medications: 16:24 Drug: morphine 2 mg Route: IVP; Site: right forearm; bp 17:06 Follow up: Response: No adverse reaction bp 16:24 Drug: Zofran 4 mg Route: IVP; Site: right forearm; bp 17:06 Follow up: Response: No adverse reaction bp 17:18 Drug: NS 0.9% 1000 ml Route: IV; Rate: 1000 ml; Site: right hand; ca1 18:41 Follow up: Response: No adverse reaction; IV Status: Completed infusion ca1 17:19 Drug: Insulin Regular Human 5 units {Co-Signature: laChelo (José Miguel Lacey RN).} Route: IVP; ca1 Site: right hand; 18:41 Follow up: Response: No adverse reaction; Blood sugar is lowered ca1 Point of Care Testing: Blood Glucose: 17:53 Blood Glucose: 344 mg/dL; ca1 18:37 Blood Glucose: 282 mg/dL; ca1 Ranges: Critical Glucose Levels:Adult <50 mg/dl or >400 mg/dl <40 mg/dl or >180 mg/dl Disposition: 10/28 05:51 Co-signature as Attending Physician, Yogesh Jimenez MD I agree with the assessment and thomas plan of care. Disposition: 10/27/18 18:06 Discharged to Home. Impression: Edema, unspecified - Dependent edema, Pain in left knee, Pain in left foot, Abrasion, left foot. - Condition is Stable. - Discharge Instructions: Abrasion, Arthritis, Edema, Knee Pain. - Prescriptions for Bactroban 2 % Topical Ointment - Apply to affected area 1 application by TOPICAL route every 12 hours; 30 gram. Bactrim DS 800- 160 mg Oral Tablet - take 1 tablet by ORAL route every 12 hours for 10 days; 20 tablet. Diclofenac Sodium 75 mg Oral Tablet Sustained Release - take 1 tablet by ORAL route 2 times per day; 30 tablet. - Medication Reconciliation Form, Thank You Letter, Antibiotic Education, Prescription Opioid Use form. - Follow up: Emergency Department; When: As needed; Reason: Worsening of condition. Follow up: Private Physician; When: 2 - 3 days; Reason: Recheck today's complaints, Continuance of care, Re-evaluation by your physician. - Problem is new. - Symptoms have improved. Signatures: Dispatcher [employer] EDOR Yogesh Jimenez MD MD cha Joaquin, Henry, RN RN hj Ari Agee, ACQUISITIONS LOGISTICS ANALYST ACQUISITIONS LOGISTICS ANALYST pm1 Tremaine Mayorga RN RN bp Montse Doyle RN RN ca1 José Miguel Lacey RN la1 Corrections: (The following items were deleted from the chart) 10/27 15:33 15:28 Extremity Venous Uni Ltd+US.RAD.BRZ ordered. [facility] 18:13 18:06 10/27/2018 18:06 Discharged to Home. Impression: Edema, unspecified - Dependent pm1 edemaPain in left knee; Pain in left foot. Condition is Stable. Forms are Medication Reconciliation Form, Thank You Letter, Antibiotic Education, Prescription Opioid Use. Follow up: Emergency Department; When: As needed; Reason: Worsening of condition. Follow up: Private Physician; When: 2 - 3 days; Reason: Recheck today's complaints, Continuance of care, Re-evaluation by your physician. Problem is new. Symptoms have improved. pm1 18:42 18:13 10/27/2018 18:06 Discharged to Home. Impression: Edema, unspecified - Dependent ca1 edemaPain in left knee; Pain in left foot; Abrasion, left foot. Condition is Stable. Forms are Medication Reconciliation Form, Thank You Letter, Antibiotic Education, Prescription Opioid Use. Follow up: Emergency Department; When: As needed; Reason: Worsening of condition. Follow up: Private Physician; When: 2 - 3 days; Reason: Recheck today's complaints, Continuance of care, Re-evaluation by your physician. Problem is new. Symptoms have improved. pm1
--- NOTE | 2018-10-27 18:07 | ER ---
Nurse's Notes [facility] Name: Melissa De Oliveira Age: 53 yrs Sex: Female : 1965 Arrival Date: 10/27/2018 Time: 14:47 Bed 19 Private MD: out of town, doctor Diagnosis: Pain in left knee;Pain in left foot;Edema, unspecified-Dependent edema;Abrasion, left foot Presentation: 10/27 14:49 Presenting complaint: Patient states: for 4 days my L foot usually in the afternoon hj swells up and now my L knee started to swell too; im diabetic i don't want ot take chances; reports fever, denies SOB;. Transition of care: patient was not received from another setting of care. Onset of symptoms was October 27, 2018. Risk Assessment: Do you want to hurt yourself or someone else? Patient reports no desire to harm self or others. Initial Sepsis Screen: Does the patient meet any 2 criteria? No. Patient's initial sepsis screen is negative. Does the patient have a suspected source of infection? No. Patient's initial sepsis screen is negative. Care prior to arrival: None. 14:49 Method Of Arrival: Ambulatory 14:49 Acuity: DEYA 3 hj Triage Assessment: 14:50 General: Appears in no apparent distress. uncomfortable, slender, Behavior is bp cooperative, appropriate for age, anxious. Pain: Complains of pain in left leg. EENT: No deficits noted. Neuro: No deficits noted. Cardiovascular: No deficits noted. Respiratory: No deficits noted. GI: No signs and/or symptoms were reported involving the gastrointestinal system. : No signs and/or symptoms were reported regarding the genitourinary system. Derm: No deficits noted. Musculoskeletal: Reports pain in left leg. 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 - Social history:: Smoking status: Patient/guardian denies using tobacco. - Ebola Screening: : Patient negative for fever greater than or equal to 101.5 degrees Fahrenheit, and additional compatible Ebola Virus Disease symptoms Patient denies exposure to infectious person Patient denies travel to an Ebola-affected area in the 21 days before illness onset No symptoms or risks identified at this time. Screenin:58 Abuse screen: Denies threats or abuse. Denies injuries from another. Nutritional bp screening: No deficits noted. Tuberculosis screening: No symptoms or risk factors identified. Fall Risk None identified. Assessment: 14:58 General: SEE TRIAGE NOTE. bp 15:40 Reassessment: PT TO XRAY. bp 16:26 Reassessment: ALL CURRENT ORDERS COMPLETED, RESULTS PENDING. bp Vital Signs: 14:52 BP 130 / 68; Pulse 87; Resp 16; Temp 98.4(TE); Pulse Ox 100% on R/A; Weight 45.36 kg; hj Height 5 ft. 4 in. (162.56 cm); Pain 6/10; 16:25 BP 156 / 81; Pulse 75; Resp 16; Pulse Ox 98% ; bp 17:30 BP 138 / 67; Pulse 87; Resp 18 S; Pulse Ox 100% on R/A; ca1 18:37 BP 146 / 68; Pulse 81; Resp 19 S; Temp 97.9(O); Pulse Ox 100% on R/A; ca1 14:52 Body Mass Index 17.17 (45.36 kg, 162.56 cm) hj ED Course: 14:47 Patient arrived in ED. dl4 14:48 out of town, doctor is Private Physician. dl4 14:51 Triage completed. hj 14:52 Arm band placed on left wrist. hj 14:54 Tremaine Mayorga, RN is Primary Nurse. bp 14:58 Patient has correct armband on for positive identification. Bed in low position. Call bp light in reach. Side rails up X2. 15:07 Ari Agee, [place] is PHCP. pm1 15:07 Yogesh Jimenez MD is Attending Physician. pm1 15:57 Extremity Venous Uni Ltd US In Process Unspecified. EDMS 16:07 Foot Left 3 View XRAY In Process Unspecified. EDMS 16:07 Knee Left 3 View XRAY In Process Unspecified. EDMS 16:15 Inserted saline lock: 22 gauge in right forearm, using aseptic technique. Blood bp collected. 17:09 Primary Nurse role handed off by Tremaine Mayorga RN bp 17:12 Montse Doyle, RN is Primary Nurse. ca1 18:40 No provider procedures requiring assistance completed. IV discontinued, intact, ca1 bleeding controlled, No redness/swelling at site. Pressure dressing applied. Administered Medications: 16:24 Drug: morphine 2 mg Route: IVP; Site: right forearm; bp 17:06 Follow up: Response: No adverse reaction bp 16:24 Drug: Zofran 4 mg Route: IVP; Site: right forearm; bp 17:06 Follow up: Response: No adverse reaction bp 17:18 Drug: NS 0.9% 1000 ml Route: IV; Rate: 1000 ml; Site: right hand; ca1 18:41 Follow up: Response: No adverse reaction; IV Status: Completed infusion ca1 17:19 Drug: Insulin Regular Human 5 units {Co-Signature: la1 (José Miguel Lacey RN).} Route: IVP; ca1 Site: right hand; 18:41 Follow up: Response: No adverse reaction; Blood sugar is lowered ca1 Point of Care Testing: Blood Glucose: 17:53 Blood Glucose: 344 mg/dL; ca1 18:37 Blood Glucose: 282 mg/dL; ca1 Ranges: Outcome: 18:06 Discharge ordered by MD. pm1 18:41 Discharged to home ambulatory. ca1 18:41 Condition: stable 18:41 Discharge instructions given to patient, Instructed on discharge instructions, follow up and referral plans. medication usage, Demonstrated understanding of instructions, follow-up care, medications, Prescriptions given X 3. 18:42 Patient left the ED. ca1 Signatures: Dispatcher [employer] EDMS Antony Ho RN RN hj Marinas, Patrick, NP BILLING AND ACCOUNTING STAFF ASSISTANT pm1 Tremaine Mayorga, KIRIT RN Edenilson Mcduffie dl4 Montse Doyle RN RN ca1 José Miguel Lacey RN la1 Corrections: (The following items were deleted from the chart) 14:53 14:52 Pulse 87bpm; Resp 16bpm; Pulse Ox 100% RA; Temp 98.4F Temporal; 45.36 kg; Height hj 5 ft. 4 in.; BMI: 17.1; Pain 6/10; hj 18:40 18:39 LMP N/A - Irregular menses ca1 ca1
[2018-10-27 19:15] VITALS: O2SAT 100
[2018-10-27 19:17] VITALS: BP 146/68; TEMP 97.9
== END 2018-10-27 18:42 | disposition home or self-care (01) ==
LOC: ER 14:46
DX: M25.562 Pain in left knee (principal); M79.672 Pain in left foot; S90.812A Abrasion, left foot, initial encounter; R60.0 Localized edema; E11.9 Type 2 diabetes mellitus without complications; Z88.5 Allergy status to narcotic agent; Z88.8 Allergy status to other drugs, medicaments and biological substances
CPT/HCPCS: 36415; 80053; 82962; 85025; 93971; 99284; J2270; J2405; J7030

== ENCOUNTER 2019-04-20 15:08 | Emergency (ER) | payer SELFPAY ==
--- OUTSIDE RECORDS SUMMARY | 2019-04-20 15:11 | XMS REPORT | Summary of Care ---
:1965 Author Organization [facility] - Health Address [address] [place] [id number] Care Team Providers Name Role Phone Дмитрий Alvarez Unavailable Pcp, Patient Does Not Have A Primary Care Provider Encounter Details Date Type Department Care Team Description 11/26/2018 Orders Only [facility] Doctor Unassigned, No [address] [facility] [place] [address] [address] [place] [address] Allergies Active Allergy Reactions Severity Noted Date Comments Morphine Nausea and/or Low 12/24/2014 Vomiting Metoclopramide Hcl Other - See comments 10/29/2015 Possible seizures with possible extrapyramidal side effects Tramadol Hcl Rash Low 01/21/2015 documented as of this encounter (statuses as of 11/26/2018) Medications Medication Sig Dispensed Refills Start Date End Date Status insulin glargine 100 inject under the 0 Active unit/mL injection skin. pregabalin 50 mg Take 50 mg by 0 Active capsule mouth. rOPINIRole 1 mg tablet Take 1 mg by 0 Active mouth. dicyclomine (BENTYL) 20 Take 1 tablet by 20 tablet 0 11/10/2017 Active mg tablet mouth 4 (four) times daily. dicyclomine (BENTYL) 20 Take 1 tablet by 20 tablet 0 11/10/2017 Active mg tablet mouth 4 (four) times daily. ondansetron (ZOFRAN Take 1 tablet by 20 tablet 0 01/05/2018 Active ODT) 4 mg mouth every 8 disintegrating tablet (eight) hours as needed for Nausea and Vomiting (N/V). 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 documented as of this encounter (statuses as of 11/26/2018) Resolved Problems Problem Noted Date Resolved Date Neck pain 10/30/2015 11/14/2015 Fever 10/30/2015 11/14/2015 Positive blood culture 10/30/2015 11/14/2015 Abdominal pain, acute, left lower quadrant 01/23/2015 11/14/2015 Hyperglycemia 01/21/2015 11/14/2015 Gastritis 01/21/2015 11/14/2015 documented as of this encounter (statuses as of 11/26/2018) Social History Tobacco Use Types Packs/Day Years Used Date Former Smoker Cigarettes Smokeless Tobacco: Never Used Alcohol Use Drinks/Week oz/Week Comments Yes 0 Standard drinks or equivalent 0.0 once or twice a year Sex Assigned at Date Recorded Not on file Job Start Date Occupation Industry Not on file Not on file Not on file Travel History Travel Start Travel End No recent travel history available. documented as of this encounter Last Filed Vital Signs Not on filedocumented in this encounter Plan of Treatment Health Maintenance Due Date Last Done Comments PNEUMOCOCCAL 0-64 YEARS COMBINED 09/03/1971 SERIES (1 of 1 - PPSV23) LDL-C 09/03/1975 URINE MICROALBUMIN 09/03/1975 DTaP,Tdap,and Td Vaccines (1 - 1984 Tdap) PAP SMEAR 1986 MAMMOGRAM 2005 COLONOSCOPY 09/03/2015 Zoster Recombinant Vaccine 09/03/2015 (SHINGRIX) (1 of 2) EYE EXAM 08/29/2016 08/30/2015 (Previously completed) FOOT EXAM 11/12/2016 11/13/2015 HgA1C 07/05/2018 01/05/2018, 10/29/2015, 03/27/2015 INFLUENZA VACCINE (Retired 12/13/2018 version) CREATININE (SERUM) 03/08/2019 03/08/2018, 01/05/2018, 11/10/2017, Additional history exists documented as of this encounter Procedures Procedure Name Priority Date/Time Associated Diagnosis Comments CONSENT/REFUSAL FOR Routine 11/26/2018 11:18 AM CDT DIAGNOSIS AND TREATMENT documented in this encounter Results Not on filedocumented in this encounter Advance Directives Name Relationship Healthcare Agent Communication Relationship Ashley Lowe Child Primary healthcare agent Lizz Shannon Sibling [facility] [phone] agent (Mobile)
--- OUTSIDE RECORDS SUMMARY | 2019-04-20 15:11 | XMS REPORT ---
:1965 [facility] Address [address] [place] [address] Care Team Providers Name Role Phone PRINCESS [...] Item Value Reference Range Comments POC-GLUCOSE METER (Sensbeat) (test 277 mg/dL 70-110 TESTED AT [address] ipwj=4894) [facility] [address] POCT-GLUCOSE [id number] 11:53:00 Test Item Value Reference Range Comments POC-GLUCOSE METER (BEGanos) 411 mg/dL 70-110 TESTED AT [address] (test sdpi=3936) [facility] [address] RAD, SPINE, CERVICAL, 2 OR 3 [id number] 23:46:00Reason for exam:->neck painFINAL REPORT RAD, SPINE, [...] Grayson Verified Date/Time: 10/06/2017 23:46:30 Reading Location: [address], SPINE, CERVICAL, WO [id number] 23:44:00Reason for exam:->neck painReason for exam:-> EMESISIs [...] Verified Date /Time: 10/06/2017 23:44:40 Reading Location: [address] Transitional Reading Room CT, BRAIN, WITHOUT [id number] 23:24:00Reason for exam:->occipital headacheReason for exam:->EMESISIs the [...] MDReport Verified Date/Time: 10/06/2017 23:24:44 Reading Location: [address] Reading Room Electronically signed by: CARLA ODEN M.D. on 11:24 PMTROPONIN [id number] 22:56:00 Test Item Value Reference Range Comments TROPONIN I (BEAKER) (test teux=213) < ng/mL 0.00-0.15 Troponin I (TnI) levels [...] acute neurological disease, and persistent tachyarrhythmia.COMPREHENSIVE METABOLIC [id number] 22:50:00 Test Item Value Reference Range Comments TOTAL PROTEIN (BEAKER) 8.5 gm/dL 6.0-8.5 (test omla=279) ALBUMIN (BEAKER) (test 4.3 g/dL 3.5-5.0 wdzw=3527) ALKALINE PHOSPHATASE 126 U/L 30-115 (BEAKER) (test rdfl=788) BILIRUBIN TOTAL (BEAKER) 0.5 mg/dL 0.1-1.2 (test ofri=108) SODIUM (BEAKER) (test 134 meq/L 135-148 cxrp=265) POTASSIUM (BEAKER) (test 4.3 meq/L 3.6-5.5 etyn=238) CHLORIDE (BEAKER) (test 97 meq/L 98-106 ovuj=480) CO2 (BEAKER) (test 24 meq/L 20-29 mwce=876) BLOOD UREA NITROGEN 17 mg/dL 10-26 (BEAKER) (test izmz=720) CREATININE (BEAKER) (test 1.01 mg/dL 0.50-1.20 ptho=926) GLUCOSE RANDOM (BEAKER) 414 mg/dL 70-110 (test hitp=029) CALCIUM (BEAKER) (test 9.6 mg/dL 8.5-10.5 xqre=835) AST (SGOT) (BEAKER) (test 11 U/L 5-40 iwho=167) ALT (SGPT) (BEAKER) (test 9 U/L 5-50 attv=781) EGFR (BEAKER) (test 58 mL/min/1.73 sq m ESTIMATED GFR IS NOT dfai=0855) ACCURATE CREATININE CLEARANCE IN PREDICTING GLOMERULAR FILTRATION RATE. ESTIMATED GFR IS NOT APPLICABLE FOR DIALYSIS PATIENTS. [id number] 22:42:00 Test Item Value Reference Range Comments AMYLASE (BEAKER) (test gslz=405) 58 U/L 30-110 CBC W/PLT COUNT & AUTO [id number] 22:22:00 Test Item Value Reference Range Comments WHITE BLOOD CELL COUNT (BEAKER) (test gsrs=588) 10.9 K/ L 4.0-10.0 RED BLOOD CELL COUNT (BEAKER) (test zhvg=610) 4.45 M/ L 4.00-5.00 HEMOGLOBIN (BEAKER) (test uebr=626) 12.2 GM/DL 12.0-15.0 HEMATOCRIT (BEAKER) (test winz=681) 37.0 % 36.0-45.0 MEAN CORPUSCULAR VOLUME (BEAKER) (test axwe=039) 83.2 fL 82.0-99.0 MEAN CORPUSCULAR HEMOGLOBIN (BEAKER) (test 27.4 pg 27.0-33.0 ssgr=762) MEAN CORPUSCULAR HEMOGLOBIN CONC (BEAKER) (test 32.9 GM/DL 32.0-36.0 nwuw=653) RED CELL DISTRIBUTION WIDTH (BEAKER) (test 14.0 % 10.3-14.2 sujh=293) PLATELET COUNT (BEAKER) (test pxwf=447) 359 K/CU MM 150-430 MEAN PLATELET VOLUME (BEAKER) (test aazx=303) 7.8 fL 6.5-10.5 NUCLEATED RED BLOOD CELLS (BEAKER) (test 0 /100 WBC 0-0 wxkg=856) NEUTROPHILS RELATIVE PERCENT (BEAKER) (test 71 % meid=643) LYMPHOCYTES RELATIVE PERCENT (BEAKER) (test 23 % oqam=032) MONOCYTES RELATIVE PERCENT (BEAKER) (test 5 % kfxx=781) EOSINOPHILS RELATIVE PERCENT (BEAKER) (test 0 % ywwh=817) BASOPHILS RELATIVE PERCENT (BEAKER) (test 1 % vdfl=229) NEUTROPHILS ABSOLUTE COUNT (BEAKER) (test 7.70 K/ L 1.80-8.00 mrwb=564) LYMPHOCYTES ABSOLUTE COUNT (BEAKER) (test 2.50 K/ L 1.48-4.50 sugp=328) MONOCYTES ABSOLUTE COUNT (BEAKER) (test 0.60 K/ L 0.00-1.30 crtk=564) EOSINOPHILS ABSOLUTE COUNT (BEAKER) (test 0.00 K/ L 0.00-0.50 yskf=859) BASOPHILS ABSOLUTE COUNT (BEAKER) (test 0.10 K/ L 0.00-0.20 lzfe=611) URINALYSIS W/ [id number] 22:09:00 Test Item Value Reference Range Comments COLOR (BEAKER) (test terp=741) Yellow CLARITY (BEAKER) (test pgmw=141) Clear SPECIFIC GRAVITY UA (BEAKER) (test yakv=942) <= 1.001-1.035 PH UA (BEAKER) (test mopb=950) 6.0 5.0-8.0 PROTEIN UA (BEAKER) (test bgvc=186) Negative Negative GLUCOSE UA (BEAKER) (test jkbd=291) >=1000 mg/dL Negative KETONES UA (BEAKER) (test tjdx=795) Negative Negative BILIRUBIN UA (BEAKER) (test oita=356) Negative Negative BLOOD UA (BEAKER) (test irbs=919) Trace Negative NITRITE UA (BEAKER) (test exff=880) Positive Negative LEUKOCYTE ESTERASE UA (BEAKER) (test yjva=323) Negative Negative UROBILINOGEN UA (BEAKER) (test bcfm=567) 0.2 mg/dL 0.2-1.0 BACTERIA (BEAKER) (test rtpz=888) Many RBC UA-MANUAL (BEAKER) (test gqgb=0319) <5 /HPF WBC UA-MANUAL (BEAKER) (test quhs=6632) 10-20 /HPF SQUAMOUS EPITHELIAL MANUAL (BEAKER) (test <5 /HPF bxao=8664) SOURCE(BEAKER) (test qkqr=0506) POCT-GLUCOSE [id number] 07:19:00 Test Item Value Reference Range Comments POC-GLUCOSE METER (BEAKER) 241 mg/dL 70-110 TESTED AT [address] (test kmrz=4895) [address] [facility] [address] [address], [id number] 19:16:00FINAL REPORT CT OF THE ABDOMEN AND [...] MDReport Verified Date/Time: 09/22/2017 19:16:29 Reading Location: [address] [facility] [id number] 17: 37:00 Test Item Value Reference Range Comments SODIUM (BEAKER) (test 134 meq/L 135-148 ogaz=888) POTASSIUM (BEAKER) (test 5.1 meq/L 3.6-5.5 Specimen markedly jsgp=998) hemolyzed CHLORIDE (BEAKER) (test 98 meq/L 98-106 czog=316) CO2 (BEAKER) (test 16 meq/L 20-29 zmhv=978) BLOOD UREA NITROGEN 9 mg/dL 10-26 (BEAKER) (test kail=130) CREATININE (BEAKER) (test 0.92 mg/dL 0.50-1.20 Specimen markedly bvnj=720) hemolyzed GLUCOSE RANDOM (BEAKER) 408 mg/dL 70-110 (test efdr=075) CALCIUM (BEAKER) (test 9.6 mg/dL 8.5-10.5 uowo=789) EGFR (BEAKER) (test 64 mL/min/1.73 sq m ESTIMATED GFR IS NOT gdei=0125) ACCURATE CREATININE CLEARANCE IN PREDICTING GLOMERULAR FILTRATION RATE. ESTIMATED GFR IS NOT APPLICABLE FOR DIALYSIS PATIENTS. TROPONIN [id number] 17:07:00 Test Item Value Reference Range Comments TROPONIN I (BEAKER) (test fray=447) < ng/mL 0.00-0.15 Troponin I (TnI) levels [...] and persistent tachyarrhythmia.CREATINE KINASE (CK), TOTAL AND [id number] 17:06:00 Test Item Value Reference Range Comments CREATINE KINASE TOTAL (BEAKER) (test yakb=025) 68 U/L 25-235 CREATINE KINASE-MB (BEAKER) (test okjh=827) 0.6 ng/mL 0.0-4.9 CREATINE KINASE-MB INDEX (BEAKER) (test mzjf=424) 0.9 % CK-MB Reference Range:<5 Normal5-10 Borderline>10 [id number] 17:00:00 Test Item Value Reference Range Comments LIPASE (BEAKER) (test vvps=375) 26 U/L 6-51 [id number] 16:51:00 Test Item Value Reference Range Comments AMYLASE (BEAKER) (test yrba=478) 32 U/L 30-110 Specimen markedly hemolyzed URINALYSIS W/ [id number] 16:21:00 Test Item Value Reference Range Comments COLOR (BEAKER) (test wwzn=431) Yellow CLARITY (BEAKER) (test cnho=593) Slightly Cloudy SPECIFIC GRAVITY UA (BEAKER) (test lptf=163) <= 1.001-1.035 PH UA (BEAKER) (test pwxu=070) 5.5 5.0-8.0 PROTEIN UA (BEAKER) (test gnvd=640) Negative Negative GLUCOSE UA (BEAKER) (test asfa=977) >=1000 mg/dL Negative KETONES UA (BEAKER) (test wzir=473) Negative Negative BILIRUBIN UA (BEAKER) (test odkl=657) Negative Negative BLOOD UA (BEAKER) (test ntpy=972) Trace Negative NITRITE UA (BEAKER) (test ytuo=323) Positive Negative LEUKOCYTE ESTERASE UA (BEAKER) (test Negative Negative hmmy=855) UROBILINOGEN UA (BEAKER) (test vphk=204) 0.2 mg/dL 0.2-1.0 BACTERIA (BEAKER) (test wmii=997) Many AMORPHOUS CRYSTALS (BEAKER) (test jemz=3899) Moderate RBC UA-MANUAL (BEAKER) (test qioj=4187) 5-10 /HPF WBC UA-MANUAL (BEAKER) (test yqth=6415) 50-100 /HPF SQUAMOUS EPITHELIAL MANUAL (BEAKER) (test <5 /HPF ebwv=5875) SOURCE(BEAKER) (test rgsp=4352) CBC W/PLT COUNT & AUTO [id number] 16:15:00 Test Item Value Reference Range Comments WHITE BLOOD CELL COUNT (BEAKER) (test kbfw=346) 6.8 K/ L 4.0-10.0 RED BLOOD CELL COUNT (BEAKER) (test qygv=281) 4.46 M/ L 4.00-5.00 HEMOGLOBIN (BEAKER) (test zzzr=731) 12.5 GM/DL 12.0-15.0 HEMATOCRIT (BEAKER) (test zhmz=777) 37.3 % 36.0-45.0 MEAN CORPUSCULAR VOLUME (BEAKER) (test kkpv=928) 83.7 fL 82.0-99.0 MEAN CORPUSCULAR HEMOGLOBIN (BEAKER) (test 28.0 pg 27.0-33.0 bkiv=638) MEAN CORPUSCULAR HEMOGLOBIN CONC (BEAKER) (test 33.4 GM/DL 32.0-36.0 gdji=771) RED CELL DISTRIBUTION WIDTH (BEAKER) (test 13.4 % 10.3-14.2 kkeu=917) PLATELET COUNT (BEAKER) (test cmbg=554) 340 K/CU MM 150-430 MEAN PLATELET VOLUME (BEAKER) (test bhke=230) 7.9 fL 6.5-10.5 NUCLEATED RED BLOOD CELLS (BEAKER) (test 0 /100 WBC 0-0 xgus=764) NEUTROPHILS RELATIVE PERCENT (BEAKER) (test 60 % sqty=280) LYMPHOCYTES RELATIVE PERCENT (BEAKER) (test 32 % zjer=757) MONOCYTES RELATIVE PERCENT (BEAKER) (test 7 % cxku=777) EOSINOPHILS RELATIVE PERCENT (BEAKER) (test 1 % gukz=811) BASOPHILS RELATIVE PERCENT (BEAKER) (test 0 % leit=060) NEUTROPHILS ABSOLUTE COUNT (BEAKER) (test 4.00 K/ L 1.80-8.00 bnpq=189) LYMPHOCYTES ABSOLUTE COUNT (BEAKER) (test 2.20 K/ L 1.48-4.50 mede=849) MONOCYTES ABSOLUTE COUNT (BEAKER) (test 0.50 K/ L 0.00-1.30 hkkn=490) EOSINOPHILS ABSOLUTE COUNT (BEAKER) (test 0.10 K/ L 0.00-0.50 wtqf=616) BASOPHILS ABSOLUTE COUNT (BEAKER) (test 0.00 K/ L 0.00-0.20 uvao=549) POCT-GLUCOSE [id number] 15:36:00 Test Item Value Reference Range Comments POC-GLUCOSE METER (BEAKER) 284 mg/dL 70-110 TESTED AT [address] (test ejfp=1425) [address] [facility] [address] [address], [id number] 15:32:00Reason for exam:->LLQ ABD PAINIs the patient [...] Valdezort Verified Date/Time: 07/07/2017 15:32:20 Reading Location: [place] [id number] CT Body Reading Room [id number] 14:41:00 Test Item Value Reference Range Comments LIPASE (BEAKER) (test dhiw=087) 32 U/L 6-51 COMPREHENSIVE METABOLIC [id number] 14:40:00 Test Item Value Reference Range Comments TOTAL PROTEIN (BEAKER) 7.1 gm/dL 6.0-8.5 (test ueln=083) ALBUMIN (BEAKER) (test 3.6 g/dL 3.5-5.0 qssl=5283) ALKALINE PHOSPHATASE 159 U/L 30-115 (BEAKER) (test laea=201) BILIRUBIN TOTAL (BEAKER) 0.3 mg/dL 0.1-1.2 (test whba=352) SODIUM (BEAKER) (test 132 meq/L 135-148 pbbr=281) POTASSIUM (BEAKER) (test 4.1 meq/L 3.6-5.5 caex=723) CHLORIDE (BEAKER) (test 98 meq/L 98-106 toxx=602) CO2 (BEAKER) (test 27 meq/L 20-29 ikdf=539) BLOOD UREA NITROGEN 13 mg/dL 10-26 (BEAKER) (test bjbj=399) CREATININE (BEAKER) (test 0.80 mg/dL 0.50-1.20 imzj=530) GLUCOSE RANDOM (BEAKER) 399 mg/dL 70-110 (test xwqk=454) CALCIUM (BEAKER) (test 8.9 mg/dL 8.5-10.5 mqwl=412) AST (SGOT) (BEAKER) (test 9 U/L 5-40 ghvx=745) ALT (SGPT) (BEAKER) (test 11 U/L 5-50 utjd=431) EGFR (BEAKER) (test 76 mL/min/1.73 sq m ESTIMATED GFR IS NOT vmmk=9948) ACCURATE CREATININE CLEARANCE IN PREDICTING GLOMERULAR FILTRATION RATE. ESTIMATED GFR IS NOT APPLICABLE FOR DIALYSIS PATIENTS. POCT-GLUCOSE [id number] 14:10:00 Test Item Value Reference Range Comments POC-GLUCOSE METER (BEAKER) 352 mg/dL 70-110 TESTED AT [facility] [address] [facility] (test qwut=1486) [facility] [address] CBC W/PLT COUNT & AUTO [id number] 13:30:00 Test Item Value Reference Range Comments WHITE BLOOD CELL COUNT (BEAKER) (test ujiq=199) 5.5 K/ L 4.0-10.0 RED BLOOD CELL COUNT (BEAKER) (test rpxt=753) 3.93 M/ L 4.00-5.00 HEMOGLOBIN (BEAKER) (test tmtj=307) 10.9 GM/DL 12.0-15.0 HEMATOCRIT (BEAKER) (test dbhl=209) 32.8 % 36.0-45.0 MEAN CORPUSCULAR VOLUME (BEAKER) (test evoo=949) 83.4 fL 82.0-99.0 MEAN CORPUSCULAR HEMOGLOBIN (BEAKER) (test 27.8 pg 27.0-33.0 prpj=202) MEAN CORPUSCULAR HEMOGLOBIN CONC (BEAKER) (test 33.3 GM/DL 32.0-36.0 jdku=067) RED CELL DISTRIBUTION WIDTH (BEAKER) (test 13.6 % 10.3-14.2 uuaf=298) PLATELET COUNT (BEAKER) (test uqsq=762) 344 K/CU MM 150-430 MEAN PLATELET VOLUME (BEAKER) (test nclb=546) 8.5 fL 6.5-10.5 NEUTROPHILS RELATIVE PERCENT (BEAKER) (test 59 % ujkr=966) LYMPHOCYTES RELATIVE PERCENT (BEAKER) (test 36 % wvux=589) MONOCYTES RELATIVE PERCENT (BEAKER) (test 4 % bqdg=148) EOSINOPHILS RELATIVE PERCENT (BEAKER) (test 1 % hubt=108) BASOPHILS RELATIVE PERCENT (BEAKER) (test 0 % fygk=937) NEUTROPHILS ABSOLUTE COUNT (BEAKER) (test 3.20 K/ L 1.80-8.00 zlip=882) LYMPHOCYTES ABSOLUTE COUNT (BEAKER) (test 2.00 K/ L 1.48-4.50 eagp=416) MONOCYTES ABSOLUTE COUNT (BEAKER) (test 0.20 K/ L 0.00-1.30 aqft=233) EOSINOPHILS ABSOLUTE COUNT (BEAKER) (test 0.10 K/ L 0.00-0.50 iqcq=784) BASOPHILS ABSOLUTE COUNT (BEAKER) (test 0.00 K/ L 0.00-0.20 nkjn=353) URINALYSIS W/ [id number] 13:01:00 Test Item Value Reference Range Comments COLOR (BEAKER) (test kfiz=248) Light Yellow CLARITY (BEAKER) (test cmsb=813) Clear SPECIFIC GRAVITY UA (BEAKER) (test adnk=789) <= 1.001-1.035 PH UA (BEAKER) (test cxjk=932) 6.0 5.0-8.0 PROTEIN UA (BEAKER) (test bdfn=322) Negative Negative GLUCOSE UA (BEAKER) (test eell=881) >=1000 mg/dL Negative KETONES UA (BEAKER) (test jbbq=657) Negative Negative BILIRUBIN UA (BEAKER) (test qlgn=279) Negative Negative BLOOD UA (BEAKER) (test nbyj=741) Negative Negative NITRITE UA (BEAKER) (test qvel=717) Negative Negative LEUKOCYTE ESTERASE UA (BEAKER) (test Negative Negative iyrt=516) UROBILINOGEN UA (BEAKER) (test haex=064) 0.2 mg/dL 0.2-1.0 BACTERIA (BEAKER) (test pwpw=041) Few RBC UA-MANUAL (BEAKER) (test kobo=1571) None Seen /HPF WBC UA-MANUAL (BEAKER) (test lhal=4376) <5 /HPF SQUAMOUS EPITHELIAL MANUAL (BEAKER) (test None Seen /HPF puxv=1215) SOURCE(BEAKER) (test qasx=4533) KETONE, [id number] 12:58:00 Test Item Value Reference Range Comments KETONES, BLOOD (BEAKER) (test jvwq=6377) 0.1 mmol/L <0.4 BLOOD GAS, [id number] 12:48:00 Test Item Value Reference Range Comments PH VENOUS (BEAKER) (test stxq=083) 7.38 7.32-7.42 PCO2 VENOUS (BEAKER) (test scwn=007) 46 mmHg 41-51 PO2 VENOUS (BEAKER) (test gstd=482) 73 mmHg 25-40 O2 SATURATION VENOUS (BEAKER) (test kmdz=796) 94.5 % 40.0-70.0 HCO3 VENOUS (BEAKER) (test lgch=912) 27 mmol/L 21-29 BASE EXCESS VENOUS (BEAKER) (test ijbb=109) 1.3 mmol/L -2.0-3.0 PATIENT TEMPERATURE (BEAKER) (test gipt=7713) 37.0 C FIO2 (BEAKER) (test itxc=9289) 37.0 % POCT-GLUCOSE [id number] 12:04:00 Test Item Value Reference Range Comments POC-GLUCOSE METER (BEAKER) > mg/dL 70-110 OUTSIDE MEASURING RANGETESTED AT (test ipox=9193) [address] [address] URINE [id number] 09:22:00 Test Item Value Reference Range Comments CULTURE (BEAKER) (test KLEBSIELLA PNEUMONIAE >100,000 col/mL ieve=4465) SSP PNEUMONIAE Klebsiella pneumoniae ssp pneumoniae Ampicillin + Sulbactam (test code=6) Cefoxitin (test code=68) Ceftriaxone (test code=52) Gentamicin (test code=18) Levofloxacin (test code=22) Nitrofurantoin (test code=23) Piperacillin + Tazobactam (test code=29) Tetracycline (test code=2) Tobramycin (test code=25) Trimethoprim + Sulfamethoxazole (test code=47) POCT-GLUCOSE [id number] 23:15:00 Test Item Value Reference Range Comments POC-GLUCOSE METER (BEAKER) 227 mg/dL 70-110 TESTED AT [address] (test ctcf=4689) [facility] [address] URINALYSIS W/ [id number] 22:36:00 Test Item Value Reference Range Comments COLOR (BEAKER) (test vzmk=729) Yellow CLARITY (BEAKER) (test flxu=501) Clear SPECIFIC GRAVITY UA (BEAKER) (test kkah=956) <= 1.001-1.035 PH UA (BEAKER) (test lsai=793) 6.5 5.0-8.0 PROTEIN UA (BEAKER) (test udgf=006) Negative Negative GLUCOSE UA (BEAKER) (test uoku=892) >=1000 mg/dL Negative KETONES UA (BEAKER) (test ogpb=224) Trace Negative BILIRUBIN UA (BEAKER) (test cbsk=558) Negative Negative BLOOD UA (BEAKER) (test dbpl=442) Negative Negative NITRITE UA (BEAKER) (test efzx=380) Positive Negative LEUKOCYTE ESTERASE UA (BEAKER) (test Negative Negative kfok=362) UROBILINOGEN UA (BEAKER) (test kwra=070) 0.2 mg/dL 0.2-1.0 BACTERIA (BEAKER) (test ujku=693) Many RBC UA-MANUAL (BEAKER) (test vcbz=0115) <5 /HPF WBC UA-MANUAL (BEAKER) (test ghmn=2135) <5 /HPF SQUAMOUS EPITHELIAL MANUAL (BEAKER) (test None Seen /HPF rebb=0597) SOURCE(BEAKER) (test adcw=0870) KETONE, [id number] 22:32:00 Test Item Value Reference Range Comments KETONES, BLOOD (BEAKER) (test afih=8625) 0.6 mmol/L <0.4 BLOOD GAS, [id number] 22:30:00 Test Item Value Reference Range Comments PH VENOUS (BEAKER) (test naie=059) 7.39 7.32-7.42 PCO2 VENOUS (BEAKER) (test rilw=842) 48 mmHg 41-51 PO2 VENOUS (BEAKER) (test amrs=829) 28 mmHg 25-40 O2 SATURATION VENOUS (BEAKER) (test kogw=390) 51.3 % 40.0-70.0 HCO3 VENOUS (BEAKER) (test oajs=352) 29 mmol/L 21-29 BASE EXCESS VENOUS (BEAKER) (test btfd=480) 3.0 mmol/L -2.0-3.0 PATIENT TEMPERATURE (BEAKER) (test qiqf=9480) 37.0 C FIO2 (BEAKER) (test ptvt=3345) 21.0 % SCREEN, [id number] 22:29:00 Test Item Value Reference Range Comments TEST URINE (BEAKER) (test uszk=866) Negative TROPONIN [id number] 21:42:00 Test Item Value Reference Range Comments TROPONIN I (BEAKER) (test hzcz=212) < ng/mL 0.00-0.15 Troponin I (TnI) levels [...] and persistent tachyarrhythmia.CREATINE KINASE (CK), TOTAL AND [id number] 21:41:00 Test Item Value Reference Range Comments CREATINE KINASE TOTAL (BEAKER) (test jmxp=846) 78 U/L 25-235 CREATINE KINASE-MB (BEAKER) (test mzfh=890) 0.4 ng/mL 0.0-4.9 CREATINE KINASE-MB INDEX (BEAKER) (test hraq=767) 0.5 % CK-MB Reference Range:<5 Normal5-10 Borderline>10 AbnormalCOMPREHENSIVE METABOLIC [id number] 21:34:00 Test Item Value Reference Range Comments TOTAL PROTEIN (BEAKER) 8.8 gm/dL 6.0-8.5 Specimen moderately (test wehf=092) hemolyzed ALBUMIN (BEAKER) (test 4.3 g/dL 3.5-5.0 Specimen moderately bssw=5406) hemolyzed ALKALINE PHOSPHATASE 124 U/L 30-115 (BEAKER) (test fakf=568) BILIRUBIN TOTAL (BEAKER) 0.4 mg/dL 0.1-1.2 Specimen moderately (test nbwo=306) hemolyzed SODIUM (BEAKER) (test 130 meq/L 135-148 jldr=412) POTASSIUM (BEAKER) (test 5.2 meq/L 3.6-5.5 Specimen moderately nlza=224) hemolyzed CHLORIDE (BEAKER) (test 93 meq/L 98-106 qiih=673) CO2 (BEAKER) (test 24 meq/L 20-29 yatt=814) BLOOD UREA NITROGEN 11 mg/dL 10-26 (BEAKER) (test gwsa=387) CREATININE (BEAKER) (test 0.90 mg/dL 0.50-1.20 Specimen moderately cihh=885) hemolyzed GLUCOSE RANDOM (BEAKER) 483 mg/dL 70-110 (test unyo=931) CALCIUM (BEAKER) (test 9.6 mg/dL 8.5-10.5 nryb=720) AST (SGOT) (BEAKER) (test 21 U/L 5-40 Specimen moderately exly=988) hemolyzed ALT (SGPT) (BEAKER) (test 14 U/L 5-50 Specimen moderately nfgl=582) hemolyzed EGFR (BEAKER) (test 66 mL/min/1.73 sq m ESTIMATED GFR IS NOT fvcc=3930) ACCURATE CREATININE CLEARANCE IN PREDICTING GLOMERULAR FILTRATION RATE. ESTIMATED GFR IS NOT APPLICABLE FOR DIALYSIS PATIENTS. [id number] 21:32:00 Test Item Value Reference Range Comments LIPASE (BEAKER) (test oqem=360) 28 U/L 6-51 CBC W/PLT COUNT & AUTO [id number] 20:55:00 Test Item Value Reference Range Comments WHITE BLOOD CELL COUNT (BEAKER) (test yrcu=925) 6.6 K/ L 4.0-10.0 RED BLOOD CELL COUNT (BEAKER) (test qqaj=476) 4.78 M/ L 4.00-5.00 HEMOGLOBIN (BEAKER) (test xvbq=476) 12.9 GM/DL 12.0-15.0 HEMATOCRIT (BEAKER) (test eyhm=045) 39.6 % 36.0-45.0 MEAN CORPUSCULAR VOLUME (BEAKER) (test hzqe=746) 82.8 fL 82.0-99.0 MEAN CORPUSCULAR HEMOGLOBIN (BEAKER) (test 26.9 pg 27.0-33.0 htzh=635) MEAN CORPUSCULAR HEMOGLOBIN CONC (BEAKER) (test 32.5 GM/DL 32.0-36.0 goew=785) RED CELL DISTRIBUTION WIDTH (BEAKER) (test 14.0 % 10.3-14.2 rmap=350) PLATELET COUNT (BEAKER) (test xgif=153) 335 K/CU MM 150-430 MEAN PLATELET VOLUME (BEAKER) (test bdun=153) 7.7 fL 6.5-10.5 NUCLEATED RED BLOOD CELLS (BEAKER) (test 0 /100 WBC 0-0 qtxl=986) NEUTROPHILS RELATIVE PERCENT (BEAKER) (test 56 % ocjh=502) LYMPHOCYTES RELATIVE PERCENT (BEAKER) (test 36 % tvla=626) MONOCYTES RELATIVE PERCENT (BEAKER) (test 6 % jjxb=301) EOSINOPHILS RELATIVE PERCENT (BEAKER) (test 2 % artk=660) BASOPHILS RELATIVE PERCENT (BEAKER) (test 0 % rvgm=446) NEUTROPHILS ABSOLUTE COUNT (BEAKER) (test 3.70 K/ L 1.80-8.00 lpuz=459) LYMPHOCYTES ABSOLUTE COUNT (BEAKER) (test 2.30 K/ L 1.48-4.50 xkqr=169) MONOCYTES ABSOLUTE COUNT (BEAKER) (test 0.40 K/ L 0.00-1.30 xbhl=841) EOSINOPHILS ABSOLUTE COUNT (BEAKER) (test 0.20 K/ L 0.00-0.50 tawo=273) BASOPHILS ABSOLUTE COUNT (BEAKER) (test 0.00 K/ L 0.00-0.20 cazu=660) POCT-GLUCOSE [id number] 20:56:00 Test Item Value Reference Range Comments POC-GLUCOSE METER (BEAKER) 446 mg/dL 70-110 Notified KIRIT DALTON/TESTED AT [facility] (test yzsw=5374) [address] [facility] [id number]
--- OUTSIDE RECORDS SUMMARY | 2019-04-20 15:12 | XMS REPORT | Summary of Care ---
:1965 Author Organization [facility] Address [address] [place] [address] Care Team Providers Name Role Phone Дмитрий Alvarez Unavailable Pcp, Patient Does Not Have A Primary Care Provider Reason for Referral MRI/CAT Scan (STAT) Status Reason Specialty Diagnoses / Referred By Referred To Procedures Contact Contact New Request Diagnostic Diagnoses Abdominal pain in female [place]le, Radiology Procedures CT ABDOMEN PELVIS W CONTRAST Folusho F, INTERACTIVE DEVELOPER [address] [facility] [address] [place] [phone] Radiology Services (STAT) Status Reason Specialty Diagnoses / Referred By Referred To Procedures Contact Contact New Request Diagnostic Diagnoses Abdominal pain in female [place]le, Radiology Procedures Chest 2 Views Folusho F, INTERACTIVE DEVELOPER [address] [place] [phone] MRI/CAT Scan (STAT) Status Reason Specialty Diagnoses / Referred By Referred To Procedures Contact Contact New Request Diagnostic Diagnoses Abdominal pain in female [place]unle, Radiology Procedures CT ABDOMEN PELVIS W CONTRAST Folusho F, INTERACTIVE DEVELOPER [address] [place] [phone] Radiology Services (STAT) Status Reason Specialty Diagnoses / Referred By Referred To Procedures Contact Contact New Request Diagnostic Diagnoses Abdominal pain in female Ib[place]unle, Radiology Procedures Chest 2 Views Folusho F, INTERACTIVE DEVELOPER [address] [place] [address] Reason for Visit Reason Comments FOOT SWELLING Abdominal Pain Auth/Cert Status Reason Specialty Diagnoses / Referred By Referred To Procedures Contact Contact Emergency Medicine Diagnoses FOOT SWELLING;ABD PAIN [facility] [address] [place] [address] [place] [address] Encounter Details Date Type Department Care Team Description 11/26/2018 Emergency [facility]-Emergency Ib[place]le, Dakotausho Abdominal pain in female (Primary Dx); Department F, INTERACTIVE DEVELOPER Bilateral edema of lower extremity; [address] [place] [address] Constipation, unspecified constipation type; [place] [address] [address] Hyperglycemia [phone] [place] [address] Allergies Active Allergy Reactions Severity Noted Date Comments Morphine Nausea and/or Low 12/24/2014 Vomiting Metoclopramide Hcl Other - See comments 10/29/2015 Possible seizures with possible extrapyramidal side effects Tramadol Hcl Rash Low 01/21/2015 documented as of this encounter (statuses as of 11/26/2018) Medications Medication Sig Dispensed Refills Start Date End Date Status insulin glargine 100 inject under 0 Active unit/mL injection the skin. pregabalin 50 mg Take 50 mg by 0 Active capsule mouth. rOPINIRole 1 mg tablet Take 1 mg by 0 Active mouth. dicyclomine (BENTYL) Take 1 tablet by 20 tablet 0 11/10/2017 Active 20 mg tablet mouth 4 (four) times daily. dicyclomine (BENTYL) Take 1 tablet by 20 tablet 0 11/10/2017 Active 20 mg tablet mouth 4 (four) times daily. ondansetron (ZOFRAN Take 1 tablet by 20 tablet 0 01/05/2018 Active ODT) 4 mg mouth every 8 disintegrating tablet (eight) hours as needed for Nausea and Vomiting (N/V). lactulose 10 gram/15 Take 30 mL by 180 mL 0 11/26/2018 12/02/2018 Active mL oral mouth daily for solutionIndications: 6 days. Abdominal pain in female, Bilateral edema of lower extremity, Constipation, unspecified constipation type cefpodoxime 100 mg Take 1 tablet by 14 tablet 0 11/26/2018 12/03/2018 Active tabletIndications: mouth 2 (two) Abdominal pain in times daily for female, Bilateral 7 days. 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 in this encounter Discharge Instructions AttachmentsThe following attachments cannot be sent through Care Everywhere.Constipation, Treating (Azerbaijani)Hyperglycemia (High Blood Sugar) ( Azerbaijani)documented in this encounter Plan of Treatment Health [...] HgA1C 07/05/2018 01/05/2018, 10/29/2015, 03/27/2015 INFLUENZA VACCINE (#1) 2018 CREATININE (SERUM) 03/08/2019 03/08/2018, 01/05/2018, 11/10/2017, Additional history exists documented as of this encounter Procedures Procedure Name Priority Date/Time Associated Comments Diagnosis CT ABDOMEN PELVIS W STAT 11/26/2018 2:21 Abdominal pain in Results for this CONTRAST PM CDT female procedure are in the results section. XR CHEST 2 VW STAT 11/26/2018 12:43 Abdominal pain in Results for this PM CDT female procedure are in the results section. CBC WITH DIFFERENTIAL STAT 11/26/2018 12:28 Abdominal pain in Results for this PM CDT female procedure are in the results section. N-TERMINAL PRO-BNP STAT 11/26/2018 12:28 Abdominal pain in Results for this PM CDT female procedure are in the results section. URINALYSIS STAT 11/26/2018 12:28 Abdominal pain in Results for this PM CDT female procedure are in the results section. ACTIVATED PARTIAL STAT 11/26/2018 12:28 Abdominal pain in Results for this THRMPLAS EDISON PM CDT female procedure are in the results section. PROTHROMBIN TIME / STAT 11/26/2018 12:28 Abdominal pain in Results for this INR PM CDT female procedure are in the results section. CBC WITH DIFF Routine 11/26/2018 12:28 Abdominal pain in Results for this PM CDT female procedure are in the results section. BASIC METABOLIC PANEL STAT 11/26/2018 12:28 Abdominal pain in Results for this (NA, K, CL, CO2, PM CDT female procedure are in GLUCOSE, BUN, the results CREATININE, CA) section. HEPATIC FUNCTION STAT 11/26/2018 12:28 Abdominal pain in Results for this PANEL (86349) PM CDT female procedure are in (ALB,T.PRO,BILI the results T,BU/BC,ALT,AST,ALK section. PHOS) THYROID STIMULATING STAT 11/26/2018 12:28 Abdominal pain in Results for this HORMONE PM CDT female procedure are in the results section. FREE T4 STAT 11/26/2018 12:28 Abdominal pain in Results for this PM CDT female procedure are in the results section. TROPONIN I STAT 11/26/2018 12:28 Abdominal pain in Results for this PM CDT female procedure are in the results section. LIPASE STAT 11/26/2018 12:28 Abdominal pain in Results for this PM CDT female procedure are in the results section. EKG-12 LEAD STAT 11/26/2018 11:54 AM CDT documented in this encounter Results CT ABDOMEN PELVIS W CONTRAST (11/26/2018 2:21 PM CDT) Specimen Narrative Performed At CT Abdomen and Pelvis with intravenous contrast. PACS/VR/DOSE CLINICAL HISTORY: Abdominal pain. Gastroenteritis or colitis is suspected DOSE: Up-to-date CT equipment and radiation dose reduction techniques were employed. CTDIvol: 3.81 mGy. DLP: 167 mGy-cm. TECHNIQUE : Contiguous axial imaging from the level of the lung bases through the pubic symphysis was performed after the uncomplicated administration of Omnipaque contrast material. Coronal and sagittal reconstructions were obtained. Auto mA and/or iterative reconstruction were used to reduce radiation dose. FINDINGS: Comparison is made with 01/23/2015 study. Lower lungs: Clear. No pleural effusion or pericardial effusion. Liver, Gallbladder and Spleen: S/P cholecystectomy. Mild dilatation of the intrahepatic as well as extrahepatic biliary ducts noted with common bile duct measuring between 9 and 10 mm. Pancreatic duct is not dilated. Liver is 16.8 cm in length and spleen measures approximately 8.5 x 2.5 cm. Peritoneum:No free air or free fluid. No lymphadenopathy. Pancreas and Adrenals:Unremarkable pancreas and adrenal glands. Kidneys and Ureters:No visible calculi in the renal collecting systems. No hydroureter or hydronephrosis. Vessels: 2 right renal arteries and 2 left renal arteries noted arising from the abdominal aorta. Retroperitoneum: No abnormal fluid or lymphadenopathy. Bowel: Constipation. Clips suspected near the base of the cecum which may have been utilized for appendectomy. Mild mucosal enhancement of some of the jejunal loops is nonspecific. No sign of diverticulitis or focal colitis. Bladder and Reproductive Organs: Urinary bladder showed no gross pathology although it is not opacified by the intravenously injected contrast medium. Hysterectomy noted. No adnexal masses or fluid in the pelvis. Bones: No aggressive bone lesions. Soft tissues: Normal. CONCLUSION: 1. No acute findings detected in CT scan of abdomen and pelvis. Constipation noted with no focal changes of colitis. Please correlate with history for prior appendectomy. 2. Cholecystectomy and hysterectomy. Procedure Note [facility], Radiant Results Inft User - 11/26/2018 2:[address] Abdomen and Pelvis with intravenous contrast. CLINICAL HISTORY: Abdominal pain. Gastroenteritis or colitis is suspected DOSE: Up-to-date CT equipment and radiation dose reduction techniques were employed. CTDIvol: 3.81 mGy. DLP: 167 mGy-cm. TECHNIQUE : Contiguous axial imaging from the level of the lung bases through the pubic symphysis was performed after the uncomplicated administration of Omnipaque contrast material. Coronal and sagittal reconstructions were obtained. Auto mA and/or iterative reconstruction were used to reduce radiation dose. FINDINGS: Comparison is made with 01/23/2015 study. Lower lungs: Clear. No pleural effusion or pericardial effusion. Liver, Gallbladder and Spleen: S/P cholecystectomy. Mild dilatation of the intrahepatic as well as extrahepatic biliary ducts noted with common bile duct measuring between 9 and 10 mm. Pancreatic duct is not dilated. Liver is 16.8 cm in length and spleen measures approximately 8.5 x 2.5 cm. Peritoneum: No free air or free fluid. No lymphadenopathy. Pancreas and Adrenals: Unremarkable pancreas and adrenal glands. Kidneys and Ureters: No visible calculi in the renal collecting systems. No hydroureter or hydronephrosis. Vessels: 2 right renal arteries and 2 left renal arteries noted arising from the abdominal aorta. Retroperitoneum: No abnormal fluid or lymphadenopathy. Bowel: Constipation. Clips suspected near the base of the cecum which may have been utilized for appendectomy. Mild mucosal enhancement of some of the jejunal loops is nonspecific. No sign of diverticulitis or focal colitis. Bladder and Reproductive Organs: Urinary bladder showed no gross pathology although it is not opacified by the intravenously injected contrast medium. Hysterectomy noted. No adnexal masses or fluid in the pelvis. Bones: No aggressive bone lesions. Soft tissues: Normal. CONCLUSION: 1. No acute findings detected in CT scan of abdomen and pelvis. Constipation noted with no focal changes of colitis. Please correlate with history for prior appendectomy. 2. Cholecystectomy and hysterectomy. Performing Organization Address [facility] Phone Number PACS/VR/DOSE Chest 2 Views (11/26/2018 12:43 PM CDT) Specimen Narrative Performed At HISTORY: SOB. PACS/VR/DOSE TECHNIQUE: PA and lateral views of the chest are obtained. Comparison made with 08/24/2015 study. FINDINGS: No acute pneumonia detected. No pneumothorax or pleural effusion or pulmonary congestion. Cardiothoracic ratio of approximately 9.7/25.5 cm is consistent with normal cardiac size. CONCLUSIONS: No signs of acute cardiopulmonary disease. Procedure Note [facility], Radiant Results Inft User - 11/26/2018 12:46 PM CDT HISTORY: SOB. TECHNIQUE: PA and lateral views of the chest are obtained. Comparison made with 08/24/2015 study. FINDINGS: No acute pneumonia detected. No pneumothorax or pleural effusion or pulmonary congestion. Cardiothoracic ratio of approximately 9.7/25.5 cm is consistent with normal cardiac size. CONCLUSIONS: No signs of acute cardiopulmonary disease. Performing Organization Address [facility] Phone Number PACS/VR/DOSE CBC WITH DIFFERENTIAL (11/26/2018 12:28 PM CDT) WBC 5.97 4.30 - 11.10 [facility] 10*3/L [facility] RBC 4.01 3.93 - 5.25 [facility] 10*6/L [facility] HGB 11.1 (L) 11.6 - 15.0 [facility] g/dL [facility] HCT 32.1 (L) 35.7 - 45.2 % [facility] MCV 80.0 (L) 80.6 - 95.5 fL [facility] MCH 27.7 25.9 - 32.8 pg [facility] MCHC 34.6 31.6 - 35.1 [facility] g/dL [facility] RDW-SD 37.2 (L) 39.0 - 49.9 fL [facility] RDW-CV 13.1 12.0 - 15.5 % [facility] PLT 366 (H) 166 - 358 [facility] 10*3/L [facility] MPV 9.9 9.5 - 12.9 fL [facility] NRBC/100 WBC 0.0 0.0 - 10.0 /100 [facility] WBCs [facility] NRBC x10^3 <0.01 10*3/L [facility] GRAN MAT (NEUT) % 53.2 % [facility] IMM GRAN % 0.30 % [facility] LYMPH % 37.4 % [facility] MONO % 5.9 % [facility] EOS % 2.2 % [facility] BASO % 1.0 % [facility] GRAN MAT x10^3(ANC) 3.18 1.88 - 7.09 [facility] 10*3/uL [facility] IMM GRAN x10^3 <0.03 0.00 - 0.06 [facility] 10*3/uL [facility] LYMPH x10^3 2.23 1.32 - 3.29 [facility] 10*3/uL [facility] MONO x10^3 0.35 0.33 - 0.92 [facility] 10*3/uL [facility] EOS x10^3 0.13 0.03 - 0.39 [facility] 10*3/uL [facility] BASO x10^3 0.06 0.01 - 0.07 [facility] 10*3/uL [facility] Specimen Blood - VENOUS Performing Organization Address City/[facility]/Zipcode Phone Number [facility] CLIA: [id number], [address] [place] [address] [address] Lipase Serum (11/26/2018 12:28 PM CDT) LIPASE 131 0 - 220 U/L [facility] Specimen Blood - VENOUS Performing Organization Address City/[facility]/Zipcode Phone Number [facility] CLIA: [id number], [address] [address] FREE T4 (11/26/2018 12:28 PM CDT) FREE T4 1.05 0.78 - 2.20 ng/dL: [facility] Specimen Blood - VENOUS Performing Organization Address City/[facility] Phone Number [facility] CLIA: [id number], [address] [place] [address] THYROID STIMULATING HORMONE (11/26/2018 12:28 PM CDT) Pathologist [facility] TSH 3.10 0.45 - 4.70 mIU/L [facility] Specimen Blood - VENOUS Performing Organization Address City/[facility] Phone Number [facility] CLIA: [id number], [address] [place] [address] N-TERMINAL PRO-BNP (11/26/2018 12:28 PM CDT) [facility] NT-proBNP 36 <=125 pg/mL [facility] Specimen Blood - VENOUS Narrative Performed At [employer] has been reported to cause a negative [facility] bias, interpret results relative to patient's use of biotin. Performing Organization Address [facility] Phone Number [facility] CLIA: [id number], [address] [address] [address] Prothrombin Time (PT) / INR (11/26/2018 12:28 PM CDT) [facility] PROTIME PATIENT 13.0 12.0 - 14.7 [facility] LABORATORY INR 1.0Comment: Normal [facility] INR <1.1; Warfarin [facility] Therapeutic range LABORATORY 2.0 to 3.0 or 2.5 to 3.5, depending upon the indications. Specimen Blood - VENOUS Performing Organization Address [facility] Phone Number [facility] CLIA: [id number], [address] [place] [id number] aPTT (11/26/2018 12:28 PM CDT) Pathologist [facility] APTT Patient 28 23 - 38 Seconds [facility] Specimen Blood - VENOUS Narrative Performed At The [facility] patient population mean normal value [facility] for aPTT is 30 seconds. Performing Organization Address [facility] Phone Number [facility] CLIA: [id number], [address] [address] Troponin I (11/26/2018 12:28 PM CDT) [facility] TROPONIN I <0.012 <=0.034 ng/mL [facility] Specimen Blood - VENOUS Narrative Performed At Equal or Less than 0.034 ng/ml---Normal [facility] Note: Cardiac troponin begins to rise 3-4 hours after the onset of ischemia. Repeat in 4-6 hours if the sample was drawn within 3-4 hours of the onset of the symptom and found normal. Between 0.035 and 0.120 ng/mL--- Borderline. Questionable myocardial injury or necrosis Note: Serial measurement may be necessary to confirm or exclude the diagnosis of myocardial injury or necrosis; Clinical correlation (symptoms, EKGs, imaging studies, and others) required; Repeat in 4-6 hours if clinically indicated. Equal or Higher than 0.121 ng/mL---Abnormal. Myocardial Injury or Necrosis Likely Biotin has been reported to cause a negative bias, interpret results relative to patient's use of biotin. Performing Organization Address [facility] Phone Number [facility] CLIA: [id number], [address] [place] [address] Hepatic Function Panel (ALB, T.PRO, BILI T, BU/BC, ALT, AST, ALK PHOS) (2018 12:28 PM CDT) Pathologist [facility] TOTAL BILI 0.4 0.1 - 1.1 mg/dL [facility] BILI UNCON 0.2 0.1 - 1.1 mg/dL [facility] BILI CONJ 0.0 0.0 - 0.3 mg/dL [facility] T PROTEIN 7.8 6.3 - 8.2 g/dL [facility] ALBUMIN 4.6 3.5 - 5.0 g/dL [facility] ALK PHOS 165 (H) 34 - 122 U/L [facility] ALT(SGPT) 22 9 - 51 U/L [facility] AST(SGOT) 19 13 - 40 U/L [facility] Specimen Blood - VENOUS Performing Organization Address [facility] Phone Number [facility] CLIA: [id number], [address] [place] [address] Basic Metabolic Panel (NA, K, CL, CO2, GLUCOSE, BUN, CREATININE, CA) (2018 12:28 PM CDT) NA 136 135 - 145 [facility] mmol/L [facility] K 5.1 (H) 3.5 - 5.0 [facility] mmol/L [facility] CL 99 98 - 108 mmol/L [facility] CO2 TOTAL 24 23 - 31 mmol/L [facility] AGAP 13 2 - 16 [facility] BUN 23 7 - 23 mg/dL [facility] GLUCOSE 407 (H) 70 - 110 mg/dL [facility] CREATININE 0.45 (L) 0.50 - 1.04 [facility] mg/dL [facility] CALCIUM 9.9 8.6 - 10.6 [facility] mg/dL [facility] eGFR Calculation 145.7 mL/min/1.73m2 [facility] ([facility] LABORATORY [place]) eGFR Calculation 176.6 mL/min/1.73m2 [facility] () [facility] Specimen Blood - VENOUS Narrative Performed At Association of Glomerular Filtration Rate (GFR) [facility] and Staging of Kidney Disease* + + +- + | GFR (mL/min/1.73 m2)| With Kidney Damage|Without Kidney Damage + + +- + |>90| Stage one| Normal + + +- + |60-89|S tage two| Decreased GFR + + +- + |30-59|S tage three| Stage three + + +- + |15-29|S tage four | Stage four + + +- + |<15 (or dialysis)|Stage five | Stage five + + +- + *Each stage assumes the associated GFR level has been in effect for at least three months.Stages 1 to 5, with or without kidney disease, indicate chronic kidney disease. Notes: Determination of stages one and two (with eGFR >59mL/min/1.73 m2) requires estimation of kidney damage for at least three months as defined by structural or functional abnormalities of the kidney, manifested by either: Pathological abnormalities or Markers of kidney damage (including abnormalities in the composition of the blood or urine or abnormalities in imaging tests). Performing Organization Address City/State/Zipcode Phone Number [facility] CLIA: [id number], [address] [place] [address] Urinalysis (11/26/2018 12:28 PM CDT) APPEARANCE Clear Clear [facility] COLOR Yellow Yellow [facility] PH 5.5 4.8 - 8.0 [facility] SP GRAVITY <=1.005 1.003 - 1.030 [facility] GLU U QUAL >1000 mg/dL (A) Negative [facility] BLOOD Trace (A) Negative [facility] KETONES Negative Negative [facility] PROTEIN Negative Negative [facility] UROBILIN 0.2 mg/dL 0-1.0 mg/dL [facility] BILIRUBIN Negative Negative [facility] NITRITE Positive (A) Negative [facility] LEUK SONU Negative Negative [facility] RBC/HPF 0 0 - 3 HPF [facility] WBC/HPF 8 (H) 0 - 5 HPF [facility] BACTERIA Many (A) Negative [facility] Specimen Urine - URINE, CLEAN CATCH Performing Organization Address City/State/Zipcode Phone Number [facility] CLIA: [id number], [address] [place] [address] documented in this encounter Visit Diagnoses Diagnosis Abdominal pain in female - Primary Bilateral edema of lower extremity Edema Constipation, unspecified constipation type Hyperglycemia Other abnormal glucose documented in this encounter Administered Medications Medication Order MAR Action Action Date Dose Rate Site cefTRIAXone (ROCEPHIN) 1,000 mg Given 11/26/2018 1:10 PM CDT 1,000 mg in NaCl 0.9% (NS) 50 mL MINI-BAG 1,000 mg, IV Piggyback, ONCE, 1 dose, Ama 11/26/18 at 1415, 50 mL, Reason for Anti-Infective: Documented Infection, Documented Infection Site: Urine, Duration of Therapy: 7 days dicyclomine (BENTYL) injection Given 11/26/2018 1:10 PM CDT 20 mg Right Deltoid-IM 20 mg 20 mg, Intramuscular, ONCE NOW, 1 dose, Ama 11/26/18 at 1315, Routine iohexol (OMNIPAQUE 350 BULK-100 mL) injection Given 11/26/2018 2:05 PM CDT 89 mL 89 mL 89 mL, Intravenous, ONCE, 1 dose, Ama 11/26/18 at 1430, Routine maalox:diphenhydrAMINE:lidocaine2 %viscous Given 11/26/2018 12:32 PM CDT 15 mL 1:1:1: suspension (COMPOUNDED) 15 mL, Oral, ONCE, 1 dose, Ama 11/26/18 at 1215, MACY NaCl 0.9% (NS) bolus infusion New Bag 11/26/2018 1:10 PM CDT 1,000 mL 999 mL/hr 1,000 mL at 999 mL/hr, 1,000 mL, IV Infusion, ONCE, 1 dose, Ama 11/26/18 at 1315, [facility] ondansetron (ZOFRAN (PF)) injection 4 mg Given 11/26/2018 12:32 PM CDT 4 mg 4 mg, Slow IV Push, ONCE, 1 dose, Ama 11/26/18 at 1315, [facility] pantoprazole (PROTONIX) 40 mg in NaCl 0.9% Given 11/26/2018 12:45 PM CDT 40 mg (NS) 20 mL syringe 40 mg, IV Push, ONCE, 1 dose, Ama 11/26/18 at 1245, 20 mL documented in this encounter Advance Directives Name Relationship Healthcare Agent Communication Relationship Ashley Lowe Child Primary healthcare agent Lizz Ortega Sibling [facility] healthcare [phone] agent (Mobile) "
[2019-04-20] MEDS ORDERED: NA CHLORIDE 0.9% 1,000 ML ONE (15:51)
[2019-04-20 15:58] LABS: Basophils % 0.5 % (0-1.3); Hematocrit 34.3 % (36.0-45.0); Lymphocytes % 19.4 % (15.3-44.8); MPV 7.7 fL (7.6-11.3); RBC Red Blood Cell Count 4.07 M/uL (3.86-4.86)
--- NOTE | 2019-04-20 16:08 | RAD REPORT ---
EXAM DESCRIPTION: RAD - Chest Single View - 04/20/2019 3:56 pm CLINICAL HISTORY: COUGH Chest pain. COMPARISON: Chest Single View dated 03/24/2018; CHEST SINGLE VIEW dated 07/03/2014 FINDINGS: Portable technique limits examination quality. Small opacity is seen in the medial right lung base which could be a small infiltrate/ developing pne umonia. The lungs are otherwise clear. The heart is normal in size. No displaced fractures.
[2019-04-20] MEDS ORDERED: CEFTRIAXONE/SWI 1gm 1 GM/10 ML SYR ONE (16:22)
[2019-04-20] MEDS ORDERED: DICYCLOMINE HCL 10 MG CAP ONE (16:22)
[2019-04-20] MEDS ORDERED: ONDANSETRON 4 MG/2 ML VIAL ONE (16:22)
[2019-04-20 16:37] LABS: Albumin 3.3 g/dL (3.4-5.0); Bilirubin Direct 0.2 mg/dL (0-0.2); Bilirubin Total 0.8 mg/dL (0.2-1.0); Protein, Total 8.4 g/dL (6.4-8.2)
[2019-04-20] MEDS ORDERED: INSULIN -REGULAR HUMAN 50 UNIT/0.5 ML ML ONE (17:01)
--- NOTE | 2019-04-20 17:10 | RAD REPORT ---
EXAM DESCRIPTION: CTAbdomen Pelvis W Contrast - 04/20/2019 5:00 pm CLINICAL HISTORY: Abdominal pain. ABD PAIN COMPARISON: Abdomen Pelvis W Contrast dated 03/24/2018; Chest Single View dated 04/20/2019 TECHNIQUE: Biphasic CT imaging of the abdomen and pelvis was performed with 100 ml non-ionic IV cont rast. All CT scans are performed using dose optimization technique as appropriate and may include automated exposure control or mA/KV adjustment according to patient size. FINDINGS: Airspace opacity is present in the right middle lobe with air bronchograms, most compatibl e with pneumonia. The liver demonstrates mild fatty infiltration. Cholecystectomy clips. The spleen, pancreas, adrenal glands and kidneys are within normal limits. No bowel obstruction, free air, free fluid or abscess. Moderate stool is retained throughout the colo n. Appendectomy. No evidence of significant lymphadenopathy. No suspicious bony findings. IMPRESSION: Right middle lobe pneumonia. Moderate fecal retention throughout the colon.
--- NOTE | 2019-04-20 17:59 | ER ---
Nurse's Notes [facility] Name: Melissa De Oliveira Age: 53 yrs Sex: Female : 1965 Arrival Date: 04/20/2019 Time: 15:10 Bed 23 Private MD: Diagnosis: Hyperglycemia, unspecified;Pneumonia, unspecified organism Presentation: 04/20 15:13 Presenting complaint: Patient states: "Friday I started with vomiting and I haven't aa5 been able to keep anything down". Pt reports abd pain and chest pain. Reports cough. Transition of care: patient was not received from another setting of care. Onset of symptoms was April 2019. Risk Assessment: Do you want to hurt yourself or someone else? Patient reports no desire to harm self or others. Initial Sepsis Screen: Does the patient meet any 2 criteria? HR > 90 bpm. Does the patient have a suspected source of infection? No. Patient's initial sepsis screen is negative. Care prior to arrival: None. 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 - Social history:: Smoking status: Patient/guardian denies using tobacco. - Ebola Screening: : No symptoms or risks identified at this time. Screenin:30 Abuse screen: Denies threats or abuse. Denies injuries from another. Nutritional aj1 screening: No deficits noted. Tuberculosis screening: No symptoms or risk factors identified. 18:24 Fall Risk None identified. aj1 Assessment: 15:30 General: Appears in no apparent distress. uncomfortable, Behavior is calm, cooperative, aj1 appropriate for age. Pain: Complains of pain in chest and abdomen. Neuro: Level of Consciousness is awake, alert, obeys commands, Oriented to person, place, time, situation. Cardiovascular: Reports chest pain, Denies palpitations, shortness of breath, Heart tones S1 S2 present Patient's skin is warm and dry. Respiratory: Reports cough that is hacking, persistent Airway is patent Respiratory effort is even, unlabored, Respiratory pattern is regular, symmetrical, Breath sounds are clear bilaterally. Denies shortness of breath. GI: Abdomen is non-distended, Bowel sounds present X 4 quads. Abd is soft X 4 quads Reports upper abdominal pain, nausea, vomiting, Patient currently denies diarrhea. : No signs and/or symptoms were reported regarding the genitourinary system. EENT: No signs and/or symptoms were reported regarding the EENT system. Derm: No signs and/or symptoms reported regarding the dermatologic system. Skin is pink, warm \\T\\ dry. normal. Musculoskeletal: No signs and/or symptoms reported regarding the musculoskeletal system. Circulation, motion, and sensation intact. 16:30 Reassessment: Patient appears in no apparent distress at this time. No changes from aj1 previously documented assessment. Patient and/or family updated on plan of care and expected duration. Pain level reassessed. Patient is alert, oriented x 3, equal unlabored respirations, skin warm/dry/pink. 16:52 Reassessment: Reassessment: Patient transported to CT via stretcher. aj1 17:30 Reassessment: Patient appears in no apparent distress at this time. No changes from aj1 previously documented assessment. Patient and/or family updated on plan of care and expected duration. Pain level reassessed. Patient is alert, oriented x 3, equal unlabored respirations, skin warm/dry/pink. 18:23 Reassessment: Patient appears in no apparent distress at this time. No changes from aj1 previously documented assessment. Patient and/or family updated on plan of care and expected duration. Pain level reassessed. Patient is alert, oriented x 3, equal unlabored respirations, skin warm/dry/pink. Vital Signs: 15:14 BP 94 / 62; Pulse 110; Resp 18 S; Temp 99.8(O); Pulse Ox 96% on R/A; Pain 7/10; aa5 15:17 Weight 46.27 kg (M); aa5 15:30 BP 133 / 75; Pulse 109; Resp 20; Pulse Ox 99% on R/A; aj1 17:45 BP 111 / 67; Pulse 110; Resp 20; Pulse Ox 99% on R/A; aj1 18:23 BP 122 / 75; Pulse 108; Resp 20; Pulse Ox 97% on R/A; aj1 ED Course: 15:10 Patient arrived in ED. aa5 15:14 Triage completed. aa5 15:14 Arm band placed on. aa5 15:15 Milvia Singh FNP-C is [facility]. kb 15:15 Baron Brewer MD is Attending Physician. kb 15:22 Carisa Phillip, RN is Primary Nurse. aj1 15:35 Flu and/or RSV swab sent to lab. Missed attempt(s): 22 gauge in left antecubital area. jp3 Bleeding controlled, band aid applied, catheter tip intact. 15:48 Initial lab(s) drawn, by me, sent to lab. Urine collected: clean catch specimen, clear, jp3 ayesha colored, X-ray(s) taken. Inserted saline lock: 22 gauge in left wrist, using aseptic technique. Blood collected. Patient maintains SpO2 saturation greater than 95% on room air. 15:49 Bed in low position. Call light in reach. Side rails up X 1. Warm blanket given. Pillow jp3 given. Verbal reassurance given. Pulse ox on. NIBP on. 15:49 Flu Sent. jp3 15:56 Chest Single View XRAY In Process Unspecified. EDMS 16:52 No provider procedures requiring assistance completed. aj1 17:03 CT Abd/Pelvis - IV Contrast Only In Process Unspecified. EDMS 18:24 IV discontinued, intact, bleeding controlled, No redness/swelling at site. Pressure aj1 dressing applied. Administered Medications: 15:51 Drug: NS 0.9% 1000 ml Route: IV; Rate: 1000 ml; Site: left forearm; rv 16:23 Drug: Bentyl 20 mg Route: PO; rv 18:18 Follow up: Response: No adverse reaction aj1 16:24 Drug: Zofran 4 mg Route: IVP; Site: left antecubital; rv 18:19 Follow up: Response: No adverse reaction aj1 16:24 Drug: Rocephin 1 grams Route: IV; Rate: calculated rate; Site: left antecubital; rv 16:24 Follow up: IV Status: Completed infusion rv 17:09 Drug: Insulin Regular Human 10 units {Co-Signature: aj1 (Carisa Phillip RN).} Route: rv IVP; Site: left forearm; 18:19 Follow up: Response: No adverse reaction; Blood sugar is lowered aj1 18:18 Drug: Zithromax 500 mg Route: PO; aj1 18:19 Follow up: Response: No adverse reaction aj1 Outcome: 17:58 Discharge ordered by . kb 18:24 Discharged to home ambulatory. aj1 18:24 Condition: good 18:24 Discharge instructions given to patient, Instructed on discharge instructions, follow up and referral plans. medication usage, Demonstrated understanding of instructions, follow-up care, medications, Prescriptions given X 3. 18:25 Patient left the ED. aj1 Signatures: Dispatcher [employer] EDMS Milvia Singh, REEMA OLIVAS-Carisa Madera RN RN aj1 Julisa Rebollar RN RN aa5 Tom Vega, RN RN rv Mino Mckinney jp3 Carsia Phillip RN aj1 Corrections: (The following items were deleted from the chart) 15:15 15:14 BP 94 / 62; Pulse 110bpm; Resp 18bpm; Spontaneous; Pulse Ox 96% RA; Temp 99.8F aa5 Oral; aa5 16:53 16:52 Reassessment: aj1 aj1
--- NOTE | 2019-04-20 17:59 | EDPHYS ---
Physician Documentation [facility] Name: Melissa De Oliveira Age: 53 yrs Sex: Female : 1965 Arrival Date: 04/20/2019 Time: 15:10 Bed 23 Private MD: ED Physician Baron Brewer HPI: 04/20 15:27 This 53 yrs old Female presents to ER via Ambulatory with complaints of kb Abdominal Pain, Chest Pain, Nausea/Vomiting, Cough. 15:27 The patient presents with abdominal pain in the upper abdomen. Onset: The kb symptoms/episode began/occurred 3 day(s) ago. The symptoms do not radiate. Associated signs and symptoms: Pertinent positives: nausea and vomiting, fever. The symptoms are described as constant. Modifying factors: The symptoms are alleviated by nothing, the symptoms are aggravated by nothing. Severity of pain: At its worst the pain was moderate in the emergency department the pain is unchanged. The patient has not experienced similar symptoms in the past. The patient has not recently seen a physician. 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 - Social history:: Smoking status: Patient/guardian denies using tobacco. - Ebola Screening: : No symptoms or risks identified at this time. ROS: 15:27 ENT: Negative for injury, pain, and discharge, Neck: Negative for injury, pain, and kb swelling, Cardiovascular: Negative for chest pain, palpitations, and edema, Back: Negative for injury and pain, : Negative for injury, bleeding, discharge, and swelling, MS/Extremity: Negative for injury and deformity, Skin: Negative for injury, rash, and discoloration, Neuro: Negative for headache, weakness, numbness, tingling, and seizure. 15:27 Constitutional: Positive for fever, malaise. 15:27 Respiratory: Positive for cough, Negative for dyspnea on exertion, hemoptysis, orthopnea, pleurisy, shortness of breath, sputum production, wheezing. 15:27 Abdomen/GI: Positive for abdominal pain, nausea and vomiting. Exam: 15:27 Constitutional: This is a well developed, well nourished patient who is awake, alert, kb and in no acute distress. Head/Face: Normocephalic, atraumatic. ENT: Nares patent. No nasal discharge, no septal abnormalities noted. Tympanic membranes are normal and external auditory canals are clear. Oropharynx with no redness, swelling, or masses, exudates, or evidence of obstruction, uvula midline. Mucous membranes moist. Neck: Trachea midline, no thyromegaly or masses palpated, and no cervical lymphadenopathy. Supple, full range of motion without nuchal rigidity, or vertebral point tenderness. No Meningismus. Chest/axilla: Normal chest wall appearance and motion. Nontender with no deformity. No lesions are appreciated. Cardiovascular: Regular rate and rhythm with a normal S1 and S2. No gallops, murmurs, or rubs. Normal PMI, no JVD. No pulse deficits. Respiratory: Lungs have equal breath sounds bilaterally, clear to auscultation and percussion. No rales, rhonchi or wheezes noted. No increased work of breathing, no retractions or nasal flaring. Back: No spinal tenderness. No costovertebral tenderness. Full range of motion. Skin: Warm, dry with normal turgor. Normal color with no rashes, no lesions, and no evidence of cellulitis. MS/ Extremity: Pulses equal, no cyanosis. Neurovascular intact. Full, normal range of motion. Neuro: Awake and alert, GCS 15, oriented to person, place, time, and situation. Cranial nerves II-XII grossly intact. Motor strength 5/5 in all extremities. Sensory grossly intact. Cerebellar exam normal. Normal gait. 15:27 Abdomen/GI: Inspection: abdomen appears normal, Bowel sounds: normal, in all quadrants, Palpation: soft, in all quadrants, nontender, in the right lower quadrant and left lower quadrant, moderate abdominal tenderness, in the right upper quadrant and left upper quadrant. Vital Signs: 15:14 BP 94 / 62; Pulse 110; Resp 18 S; Temp 99.8(O); Pulse Ox 96% on R/A; Pain 7/10; aa5 15:17 Weight 46.27 kg (M); aa5 15:30 BP 133 / 75; Pulse 109; Resp 20; Pulse Ox 99% on R/A; aj1 17:45 BP 111 / 67; Pulse 110; Resp 20; Pulse Ox 99% on R/A; aj1 18:23 BP 122 / 75; Pulse 108; Resp 20; Pulse Ox 97% on R/A; aj1 MDM: 15:15 Patient medically screened. kb 15:27 Data reviewed: vital signs, nurses notes. Data interpreted: Pulse oximetry: on room air kb is 96 %. Interpretation: normal. 17:56 Counseling: I had a detailed discussion with the patient and/or guardian regarding: the kb historical points, exam findings, and any diagnostic results supporting the discharge/admit diagnosis, lab results, radiology results, the need for outpatient follow up, a family practitioner, to return to the emergency department if symptoms worsen or persist or if there are any questions or concerns that arise at home. 04/20 15:20 Order name: Basic Metabolic Panel; Complete Time: 16:40 kb 04/20 15:20 Order name: CBC with Diff; Complete Time: 16:07 kb 04/20 15:20 Order name: Hepatic Function; Complete Time: 16:40 kb 04/20 15:20 Order name: Lipase; Complete Time: 16:40 kb 04/20 15:20 Order name: Flu; Complete Time: 16:17 kb 04/20 17:54 Order name: Glucose, Ancillary Testing; Complete Time: 17:56 EDMS 04/20 15:20 Order name: Chest Single View XRAY; Complete Time: 16:16 kb 04/20 16:41 Order name: CT Abd/Pelvis - IV Contrast Only; Complete Time: 17:40 kb 04/20 15:20 Order name: IV Saline Lock; Complete Time: 15:49 kb 04/20 15:20 Order name: Labs collected and sent; Complete Time: 15:49 kb Administered Medications: 15:51 Drug: NS 0.9% 1000 ml Route: IV; Rate: 1000 ml; Site: left forearm; rv 16:23 Drug: Bentyl 20 mg Route: PO; rv 18:18 Follow up: Response: No adverse reaction aj1 16:24 Drug: Zofran 4 mg Route: IVP; Site: left antecubital; rv 18:19 Follow up: Response: No adverse reaction aj1 16:24 Drug: Rocephin 1 grams Route: IV; Rate: calculated rate; Site: left antecubital; rv 16:24 Follow up: IV Status: Completed infusion rv 17:09 Drug: Insulin Regular Human 10 units {Co-Signature: [email or web address] (Craisa Phillip RN).} Route: rv IVP; Site: left forearm; 18:19 Follow up: Response: No adverse reaction; Blood sugar is lowered aj1 18:18 Drug: Zithromax 500 mg Route: PO; aj1 18:19 Follow up: Response: No adverse reaction aj1 Disposition: 04/21 06:36 Co-signature as Attending Physician, Baron Brewer MD I agree with the assessment and kdr plan of care. Disposition: 04/20/19 17:58 Discharged to Home. Impression: Hyperglycemia, unspecified, Pneumonia, unspecified organism. - Condition is Stable. - Discharge Instructions: Community-Acquired Pneumonia, Adult, [id number], Hyperglycemia, [id number]. - Prescriptions for Albuterol Sulfate 90 mcg/actuation - inhale 1-2 puff by INHALATION route every 4-6 hours; 1 Inhaler. Zithromax 500 mg Oral Tablet - take 1 tablet by ORAL route once daily for 5 days; 5 tablet. Zofran 4 mg Oral Tablet - take 1 tablet by ORAL route every 6 hours As needed; 20 tablet. - Medication Reconciliation Form, Thank You Letter, Antibiotic Education, Prescription Opioid Use form. - Follow up: Emergency Department; When: As needed; Reason: Worsening of condition. Follow up: Private Physician; When: 2 - 3 days; Reason: Recheck today's complaints, Continuance of care, Re-evaluation by your physician. Signatures: Dispatcher [employer] Milvia Zuniga, OTR TRUCK DRIVER-C OTR TRUCK DRIVER-CkCarisa Figueroa, RN RN aj1 Baron Brewer MD MD [facility] Julisa Rebollar RN RN aa5 Tom Vega RN RN rv Carisa Phillip RN aj1 Corrections: (The following items were deleted from the chart) 04/20 18:25 17:58 04/20/2019 17:58 Discharged to Home. Impression: Hyperglycemia, unspecified; aj1 Pneumonia, unspecified organism. Condition is Stable. Discharge Instructions: Hyperglycemia, [id number]. Forms are Medication Reconciliation Form, Thank You Letter, Antibiotic Education, Prescription Opioid Use. Follow up: Emergency Department; When: As needed; Reason: Worsening of condition. Follow up: Private Physician; When: 2 - 3 days; Reason: Recheck today's complaints, Continuance of care, Re-evaluation by your physician. kb
[2019-04-20] MEDS ORDERED: AZITHROMYCIN 250 MG TAB ONE (18:12)
[2019-04-20 18:57] VITALS: TEMP 99.8
[2019-04-20 19:02] VITALS: BP 122/75; O2SAT 97
== END 2019-04-20 18:25 | disposition home or self-care (01) ==
LOC: ER 15:08
DX: J18.9 Pneumonia, unspecified organism (principal); E11.65 Type 2 diabetes mellitus with hyperglycemia; Z88.6 Allergy status to analgesic agent; Z88.8 Allergy status to other drugs, medicaments and biological substances
CPT/HCPCS: 36415; 71045; 74177; 80048; 80076; 82947; 83690; 85025; 87804; 99284; J0696; J2405; J7030; Q9967

== ENCOUNTER 2019-05-10 15:05 | Emergency (ER) | payer SELFPAY ==
--- OUTSIDE RECORDS SUMMARY | 2019-05-10 15:12 | XMS REPORT ---
:1965 [facility] Address [address] [place] [address] Care Team Providers Name Role Phone PRINCESS [...] Item Value Reference Range Comments POC-GLUCOSE METER ([facility]) (test 277 mg/dL 70-110 TESTED AT [address] hxwz=3861) [facility] [address] POCT-GLUCOSE [id number] 11:53:00 Test Item Value Reference Range Comments POC-GLUCOSE METER ([facility]) 411 mg/dL 70-110 TESTED AT [address] (test kchh=4191) [facility] [address] RAD, SPINE, CERVICAL, 2 OR 3 [id number] 23:46:00Reason for exam:->neck painFINAL REPORT RAD, SPINE, [...] Grayson Verified Date/Time: 10/06/2017 23:46:30 Reading Location: [address] Reading Room CT, SPINE, CERVICAL, WO [id number] 23:44:00Reason for exam:->neck painReason for exam:-> EMESISIs [...] Verified Date /Time: 10/06/2017 23:44:40 Reading Location: [address] Transitional Reading Room CT, BRAIN, WITHOUT [id number] 23:24:00Reason for exam:->occipital headacheReason for exam:->EMESISIs the [...] MDReport Verified Date/Time: 10/06/2017 23:24:44 Reading Location: [address] Reading Room Electronically signed by: CARLA ODEN M.D. on 11:24 PMTROPONIN [id number] 22:56:00 Test Item Value Reference Range Comments TROPONIN I (BEAKER) (test ldah=983) < ng/mL 0.00-0.15 Troponin I (TnI) levels [...] acute neurological disease, and persistent tachyarrhythmia.COMPREHENSIVE METABOLIC [id number] 22:50:00 Test Item Value Reference Range Comments TOTAL PROTEIN (BEAKER) 8.5 gm/dL 6.0-8.5 (test wpjg=590) ALBUMIN (BEAKER) (test 4.3 g/dL 3.5-5.0 qzav=7019) ALKALINE PHOSPHATASE 126 U/L 30-115 (BEAKER) (test sipq=836) BILIRUBIN TOTAL (BEAKER) 0.5 mg/dL 0.1-1.2 (test hwfu=101) SODIUM (BEAKER) (test 134 meq/L 135-148 dzrb=635) POTASSIUM (BEAKER) (test 4.3 meq/L 3.6-5.5 xzmo=362) CHLORIDE (BEAKER) (test 97 meq/L 98-106 jjlm=965) CO2 (BEAKER) (test 24 meq/L 20-29 wpvf=750) BLOOD UREA NITROGEN 17 mg/dL 10-26 (BEAKER) (test gnon=582) CREATININE (BEAKER) (test 1.01 mg/dL 0.50-1.20 ehhu=019) GLUCOSE RANDOM (BEAKER) 414 mg/dL 70-110 (test nlux=549) CALCIUM (BEAKER) (test 9.6 mg/dL 8.5-10.5 dgos=162) AST (SGOT) (BEAKER) (test 11 U/L 5-40 qxjk=219) ALT (SGPT) (BEAKER) (test 9 U/L 5-50 moit=931) EGFR (BEAKER) (test 58 mL/min/1.73 sq m ESTIMATED GFR IS NOT mrfx=3248) ACCURATE CREATININE CLEARANCE IN PREDICTING GLOMERULAR FILTRATION RATE. ESTIMATED GFR IS NOT APPLICABLE FOR DIALYSIS PATIENTS. [id number] 22:42:00 Test Item Value Reference Range Comments AMYLASE (BEAKER) (test fyvl=319) 58 U/L 30-110 CBC W/PLT COUNT & AUTO [id number] 22:22:00 Test Item Value Reference Range Comments WHITE BLOOD CELL COUNT (BEAKER) (test kihc=957) 10.9 K/ L 4.0-10.0 RED BLOOD CELL COUNT (BEAKER) (test hlcs=625) 4.45 M/ L 4.00-5.00 HEMOGLOBIN (BEAKER) (test osup=821) 12.2 GM/DL 12.0-15.0 HEMATOCRIT (BEAKER) (test ersa=231) 37.0 % 36.0-45.0 MEAN CORPUSCULAR VOLUME (BEAKER) (test wkkh=076) 83.2 fL 82.0-99.0 MEAN CORPUSCULAR HEMOGLOBIN (BEAKER) (test 27.4 pg 27.0-33.0 zioe=387) MEAN CORPUSCULAR HEMOGLOBIN CONC (BEAKER) (test 32.9 GM/DL 32.0-36.0 ycwk=566) RED CELL DISTRIBUTION WIDTH (BEAKER) (test 14.0 % 10.3-14.2 iqvq=086) PLATELET COUNT (BEAKER) (test pfta=080) 359 K/CU MM 150-430 MEAN PLATELET VOLUME (BEAKER) (test ggki=951) 7.8 fL 6.5-10.5 NUCLEATED RED BLOOD CELLS (BEAKER) (test 0 /100 WBC 0-0 owwy=661) NEUTROPHILS RELATIVE PERCENT (BEAKER) (test 71 % vqjh=974) LYMPHOCYTES RELATIVE PERCENT (BEAKER) (test 23 % wuqs=673) MONOCYTES RELATIVE PERCENT (BEAKER) (test 5 % gfyw=032) EOSINOPHILS RELATIVE PERCENT (BEAKER) (test 0 % lgta=392) BASOPHILS RELATIVE PERCENT (BEAKER) (test 1 % oewo=714) NEUTROPHILS ABSOLUTE COUNT (BEAKER) (test 7.70 K/ L 1.80-8.00 enar=403) LYMPHOCYTES ABSOLUTE COUNT (BEAKER) (test 2.50 K/ L 1.48-4.50 zqtg=402) MONOCYTES ABSOLUTE COUNT (BEAKER) (test 0.60 K/ L 0.00-1.30 cwhy=636) EOSINOPHILS ABSOLUTE COUNT (BEAKER) (test 0.00 K/ L 0.00-0.50 ysyn=623) BASOPHILS ABSOLUTE COUNT (BEAKER) (test 0.10 K/ L 0.00-0.20 psrs=721) URINALYSIS W/ [id number] 22:09:00 Test Item Value Reference Range Comments COLOR (BEAKER) (test jpca=460) Yellow CLARITY (BEAKER) (test tmaf=520) Clear SPECIFIC GRAVITY UA (BEAKER) (test jmwr=027) <= 1.001-1.035 PH UA (BEAKER) (test gybh=756) 6.0 5.0-8.0 PROTEIN UA (BEAKER) (test ydog=869) Negative Negative GLUCOSE UA (BEAKER) (test gdrp=671) >=1000 mg/dL Negative KETONES UA (BEAKER) (test lzdg=326) Negative Negative BILIRUBIN UA (BEAKER) (test zrok=296) Negative Negative BLOOD UA (BEAKER) (test ddhe=618) Trace Negative NITRITE UA (BEAKER) (test iquf=166) Positive Negative LEUKOCYTE ESTERASE UA (BEAKER) (test wwjx=401) Negative Negative UROBILINOGEN UA (BEAKER) (test hzfa=574) 0.2 mg/dL 0.2-1.0 BACTERIA (BEAKER) (test pzxb=563) Many RBC UA-MANUAL (BEAKER) (test dnxy=5922) <5 /HPF WBC UA-MANUAL (BEAKER) (test xmkf=9218) 10-20 /HPF SQUAMOUS EPITHELIAL MANUAL (BEAKER) (test <5 /HPF gcuc=4425) SOURCE(BEAKER) (test ngmo=2595) POCT-GLUCOSE [id number] 07:19:00 Test Item Value Reference Range Comments POC-GLUCOSE METER (BEAKER) 241 mg/dL 70-110 TESTED AT [address] (test zjqw=6455) [address] [facility] [address] CT, [id number] 19:16:00FINAL REPORT CT OF THE ABDOMEN AND [...] MDReport Verified Date/Time: 09/22/2017 19:16:29 Reading Location: [address] Consult Reading [facility] MET[facility]OL[facility] [id number] 17: 37:00 Test Item Value Reference Range Comments SODIUM (BEAKER) (test 134 meq/L 135-148 shmh=287) POTASSIUM (BEAKER) (test 5.1 meq/L 3.6-5.5 Specimen markedly iemw=731) hemolyzed CHLORIDE (BEAKER) (test 98 meq/L 98-106 bkbt=063) CO2 (BEAKER) (test 16 meq/L 20-29 aaiq=258) BLOOD UREA NITROGEN 9 mg/dL 10-26 (BEAKER) (test ppqm=950) CREATININE (BEAKER) (test 0.92 mg/dL 0.50-1.20 Specimen markedly hecp=576) hemolyzed GLUCOSE RANDOM (BEAKER) 408 mg/dL 70-110 (test sopb=215) CALCIUM (BEAKER) (test 9.6 mg/dL 8.5-10.5 wmfn=255) EGFR (BEAKER) (test 64 mL/min/1.73 sq m ESTIMATED GFR IS NOT jdax=0049) ACCURATE CREATININE CLEARANCE IN PREDICTING GLOMERULAR FILTRATION RATE. ESTIMATED GFR IS NOT APPLICABLE FOR DIALYSIS PATIENTS. TROPONIN [id number] 17:07:00 Test Item Value Reference Range Comments TROPONIN I (BEAKER) (test hlyv=069) < ng/mL 0.00-0.15 Troponin I (TnI) levels [...] and persistent tachyarrhythmia.CREATINE KINASE (CK), TOTAL AND [id number] 17:06:00 Test Item Value Reference Range Comments CREATINE KINASE TOTAL (BEAKER) (test yhro=244) 68 U/L 25-235 CREATINE KINASE-MB (BEAKER) (test lsqx=972) 0.6 ng/mL 0.0-4.9 CREATINE KINASE-MB INDEX (BEAKER) (test mkmz=578) 0.9 % CK-MB Reference Range:<5 Normal5-10 Borderline>10 [id number] 17:00:00 Test Item Value Reference Range Comments LIPASE (BEAKER) (test anti=085) 26 U/L 6-51 [id number] 16:51:00 Test Item Value Reference Range Comments AMYLASE (BEAKER) (test bnbm=852) 32 U/L 30-110 Specimen markedly hemolyzed URINALYSIS W/ [id number] 16:21:00 Test Item Value Reference Range Comments COLOR (BEAKER) (test sprk=627) Yellow CLARITY (BEAKER) (test ksbk=432) Slightly Cloudy SPECIFIC GRAVITY UA (BEAKER) (test udxt=189) <= 1.001-1.035 PH UA (BEAKER) (test waka=763) 5.5 5.0-8.0 PROTEIN UA (BEAKER) (test oaom=782) Negative Negative GLUCOSE UA (BEAKER) (test nywh=432) >=1000 mg/dL Negative KETONES UA (BEAKER) (test vyga=933) Negative Negative BILIRUBIN UA (BEAKER) (test yimn=663) Negative Negative BLOOD UA (BEAKER) (test dilb=084) Trace Negative NITRITE UA (BEAKER) (test retu=427) Positive Negative LEUKOCYTE ESTERASE UA (BEAKER) (test Negative Negative mats=330) UROBILINOGEN UA (BEAKER) (test fjzk=383) 0.2 mg/dL 0.2-1.0 BACTERIA (BEAKER) (test kdqu=157) Many AMORPHOUS CRYSTALS (BEAKER) (test mzzi=9434) Moderate RBC UA-MANUAL (BEAKER) (test tuqr=7643) 5-10 /HPF WBC UA-MANUAL (BEAKER) (test rbhh=8822) 50-100 /HPF SQUAMOUS EPITHELIAL MANUAL (BEAKER) (test <5 /HPF cila=3270) SOURCE(BEAKER) (test wpaq=1773) CBC W/PLT COUNT & AUTO [id number] 16:15:00 Test Item Value Reference Range Comments WHITE BLOOD CELL COUNT (BEAKER) (test mgdx=777) 6.8 K/ L 4.0-10.0 RED BLOOD CELL COUNT (BEAKER) (test mlrg=665) 4.46 M/ L 4.00-5.00 HEMOGLOBIN (BEAKER) (test vnww=650) 12.5 GM/DL 12.0-15.0 HEMATOCRIT (BEAKER) (test oxds=840) 37.3 % 36.0-45.0 MEAN CORPUSCULAR VOLUME (BEAKER) (test bjgb=558) 83.7 fL 82.0-99.0 MEAN CORPUSCULAR HEMOGLOBIN (BEAKER) (test 28.0 pg 27.0-33.0 sdxy=924) MEAN CORPUSCULAR HEMOGLOBIN CONC (BEAKER) (test 33.4 GM/DL 32.0-36.0 zedl=828) RED CELL DISTRIBUTION WIDTH (BEAKER) (test 13.4 % 10.3-14.2 wfpg=219) PLATELET COUNT (BEAKER) (test tmsm=219) 340 K/CU MM 150-430 MEAN PLATELET VOLUME (BEAKER) (test gxpj=492) 7.9 fL 6.5-10.5 NUCLEATED RED BLOOD CELLS (BEAKER) (test 0 /100 WBC 0-0 vnex=773) NEUTROPHILS RELATIVE PERCENT (BEAKER) (test 60 % tbih=801) LYMPHOCYTES RELATIVE PERCENT (BEAKER) (test 32 % yjvw=758) MONOCYTES RELATIVE PERCENT (BEAKER) (test 7 % bnek=155) EOSINOPHILS RELATIVE PERCENT (BEAKER) (test 1 % muxh=297) BASOPHILS RELATIVE PERCENT (BEAKER) (test 0 % obqd=415) NEUTROPHILS ABSOLUTE COUNT (BEAKER) (test 4.00 K/ L 1.80-8.00 knfr=237) LYMPHOCYTES ABSOLUTE COUNT (BEAKER) (test 2.20 K/ L 1.48-4.50 nbuy=257) MONOCYTES ABSOLUTE COUNT (BEAKER) (test 0.50 K/ L 0.00-1.30 kbjr=186) EOSINOPHILS ABSOLUTE COUNT (BEAKER) (test 0.10 K/ L 0.00-0.50 ndfz=962) BASOPHILS ABSOLUTE COUNT (BEAKER) (test 0.00 K/ L 0.00-0.20 yqci=428) POCT-GLUCOSE [id number] 15:36:00 Test Item Value Reference Range Comments POC-GLUCOSE METER (BEAKER) 284 mg/dL 70-110 TESTED AT [address] (test kplo=9111) [address] [facility] [address] [place], [id number] 15:32:00Reason for exam:->LLQ ABD PAINIs the patient [...] Valdezort Verified Date/Time: 07/07/2017 15:32:20 Reading Location: [place] [id number] CT Body Reading Room [id number] 14:41:00 Test Item Value Reference Range Comments LIPASE (BEAKER) (test plbi=465) 32 U/L 6-51 COMPREHENSIVE METABOLIC [id number] 14:40:00 Test Item Value Reference Range Comments TOTAL PROTEIN (BEAKER) 7.1 gm/dL 6.0-8.5 (test uwao=850) ALBUMIN (BEAKER) (test 3.6 g/dL 3.5-5.0 xytr=8678) ALKALINE PHOSPHATASE 159 U/L 30-115 (BEAKER) (test tigx=120) BILIRUBIN TOTAL (BEAKER) 0.3 mg/dL 0.1-1.2 (test sqnr=276) SODIUM (BEAKER) (test 132 meq/L 135-148 wcgb=584) POTASSIUM (BEAKER) (test 4.1 meq/L 3.6-5.5 pbou=387) CHLORIDE (BEAKER) (test 98 meq/L 98-106 qfgc=329) CO2 (BEAKER) (test 27 meq/L 20-29 qwgo=166) BLOOD UREA NITROGEN 13 mg/dL 10-26 (BEAKER) (test xxtd=821) CREATININE (BEAKER) (test 0.80 mg/dL 0.50-1.20 rzig=922) GLUCOSE RANDOM (BEAKER) 399 mg/dL 70-110 (test wjzj=523) CALCIUM (BEAKER) (test 8.9 mg/dL 8.5-10.5 nuwx=514) AST (SGOT) (BEAKER) (test 9 U/L 5-40 kwji=095) ALT (SGPT) (BEAKER) (test 11 U/L 5-50 yneh=453) EGFR (BEAKER) (test 76 mL/min/1.73 sq m ESTIMATED GFR IS NOT iolm=2139) ACCURATE CREATININE CLEARANCE IN PREDICTING GLOMERULAR FILTRATION RATE. ESTIMATED GFR IS NOT APPLICABLE FOR DIALYSIS PATIENTS. POCT-GLUCOSE [id number] 14:10:00 Test Item Value Reference Range Comments POC-GLUCOSE METER (BEAKER) 352 mg/dL 70-[address] [facility] [address] [facility] (test cmep=8939) [facility] [address] CBC W/PLT COUNT & AUTO [id number] 13:30:00 Test Item Value Reference Range Comments WHITE BLOOD CELL COUNT (BEAKER) (test rohv=401) 5.5 K/ L 4.0-10.0 RED BLOOD CELL COUNT (BEAKER) (test sxmt=352) 3.93 M/ L 4.00-5.00 HEMOGLOBIN (BEAKER) (test oyly=103) 10.9 GM/DL 12.0-15.0 HEMATOCRIT (BEAKER) (test psaq=625) 32.8 % 36.0-45.0 MEAN CORPUSCULAR VOLUME (BEAKER) (test oxth=694) 83.4 fL 82.0-99.0 MEAN CORPUSCULAR HEMOGLOBIN (BEAKER) (test 27.8 pg 27.0-33.0 heou=684) MEAN CORPUSCULAR HEMOGLOBIN CONC (BEAKER) (test 33.3 GM/DL 32.0-36.0 ouca=387) RED CELL DISTRIBUTION WIDTH (BEAKER) (test 13.6 % 10.3-14.2 lfol=168) PLATELET COUNT (BEAKER) (test dkki=420) 344 K/CU MM 150-430 MEAN PLATELET VOLUME (BEAKER) (test fvtj=302) 8.5 fL 6.5-10.5 NEUTROPHILS RELATIVE PERCENT (BEAKER) (test 59 % psql=503) LYMPHOCYTES RELATIVE PERCENT (BEAKER) (test 36 % jcel=484) MONOCYTES RELATIVE PERCENT (BEAKER) (test 4 % oczm=346) EOSINOPHILS RELATIVE PERCENT (BEAKER) (test 1 % chnx=024) BASOPHILS RELATIVE PERCENT (BEAKER) (test 0 % rknj=063) NEUTROPHILS ABSOLUTE COUNT (BEAKER) (test 3.20 K/ L 1.80-8.00 eyjv=772) LYMPHOCYTES ABSOLUTE COUNT (BEAKER) (test 2.00 K/ L 1.48-4.50 nrcf=439) MONOCYTES ABSOLUTE COUNT (BEAKER) (test 0.20 K/ L 0.00-1.30 eiqm=143) EOSINOPHILS ABSOLUTE COUNT (BEAKER) (test 0.10 K/ L 0.00-0.50 lsoc=116) BASOPHILS ABSOLUTE COUNT (BEAKER) (test 0.00 K/ L 0.00-0.20 hcyk=500) URINALYSIS W/ [id number] 13:01:00 Test Item Value Reference Range Comments COLOR (BEAKER) (test mwof=680) Light Yellow CLARITY (BEAKER) (test iigk=188) Clear SPECIFIC GRAVITY UA (BEAKER) (test bfzv=583) <= 1.001-1.035 PH UA (BEAKER) (test gctn=189) 6.0 5.0-8.0 PROTEIN UA (BEAKER) (test ycuy=283) Negative Negative GLUCOSE UA (BEAKER) (test wjqu=647) >=1000 mg/dL Negative KETONES UA (BEAKER) (test wenv=986) Negative Negative BILIRUBIN UA (BEAKER) (test tbtd=207) Negative Negative BLOOD UA (BEAKER) (test bxva=623) Negative Negative NITRITE UA (BEAKER) (test fjbe=024) Negative Negative LEUKOCYTE ESTERASE UA (BEAKER) (test Negative Negative fozk=171) UROBILINOGEN UA (BEAKER) (test lcmp=965) 0.2 mg/dL 0.2-1.0 BACTERIA (BEAKER) (test reei=089) Few RBC UA-MANUAL (BEAKER) (test yaqs=0978) None Seen /HPF WBC UA-MANUAL (BEAKER) (test ajmt=6408) <5 /HPF SQUAMOUS EPITHELIAL MANUAL (BEAKER) (test None Seen /HPF ylkd=8025) SOURCE(BEAKER) (test lhyv=1140) KETONE, [id number] 12:58:00 Test Item Value Reference Range Comments KETONES, BLOOD (BEAKER) (test tbby=8183) 0.1 mmol/L <0.4 BLOOD GAS, [id number] 12:48:00 Test Item Value Reference Range Comments PH VENOUS (BEAKER) (test qhdj=121) 7.38 7.32-7.42 PCO2 VENOUS (BEAKER) (test boqx=032) 46 mmHg 41-51 PO2 VENOUS (BEAKER) (test ztnl=208) 73 mmHg 25-40 O2 SATURATION VENOUS (BEAKER) (test wuur=481) 94.5 % 40.0-70.0 HCO3 VENOUS (BEAKER) (test fjbr=304) 27 mmol/L 21-29 BASE EXCESS VENOUS (BEAKER) (test gkjv=618) 1.3 mmol/L -2.0-3.0 PATIENT TEMPERATURE (BEAKER) (test pbci=1137) 37.0 C FIO2 (BEAKER) (test mzva=2857) 37.0 % POCT-GLUCOSE [id number] 12:04:00 Test Item Value Reference Range Comments POC-GLUCOSE METER (BEAKER) > mg/dL 70-110 OUTSIDE MEASURING RANGETESTED AT (test myuc=5102) [address] [address] URINE [id number] 09:22:00 Test Item Value Reference Range Comments CULTURE (BEAKER) (test KLEBSIELLA PNEUMONIAE >100,000 col/mL rtru=9749) SSP PNEUMONIAE Klebsiella pneumoniae ssp pneumoniae Ampicillin + Sulbactam (test code=6) Cefoxitin (test code=68) Ceftriaxone (test code=52) Gentamicin (test code=18) Levofloxacin (test code=22) Nitrofurantoin (test code=23) Piperacillin + Tazobactam (test code=29) Tetracycline (test code=2) Tobramycin (test code=25) Trimethoprim + Sulfamethoxazole (test code=47) POCT-GLUCOSE [id number] 23:15:00 Test Item Value Reference Range Comments POC-GLUCOSE METER (BEAKER) 227 mg/dL 70-110 TESTED AT [address] (test symr=1250) [facility] [address] URINALYSIS W/ [id number] 22:36:00 Test Item Value Reference Range Comments COLOR (BEAKER) (test lnvc=367) Yellow CLARITY (BEAKER) (test yskx=231) Clear SPECIFIC GRAVITY UA (BEAKER) (test rjwe=973) <= 1.001-1.035 PH UA (BEAKER) (test cuwf=763) 6.5 5.0-8.0 PROTEIN UA (BEAKER) (test pvmr=177) Negative Negative GLUCOSE UA (BEAKER) (test uomt=743) >=1000 mg/dL Negative KETONES UA (BEAKER) (test ejbm=555) Trace Negative BILIRUBIN UA (BEAKER) (test yyze=837) Negative Negative BLOOD UA (BEAKER) (test trzt=447) Negative Negative NITRITE UA (BEAKER) (test gzbi=983) Positive Negative LEUKOCYTE ESTERASE UA (BEAKER) (test Negative Negative ntup=580) UROBILINOGEN UA (BEAKER) (test xpmq=516) 0.2 mg/dL 0.2-1.0 BACTERIA (BEAKER) (test fdtm=580) Many RBC UA-MANUAL (BEAKER) (test fgwn=1138) <5 /HPF WBC UA-MANUAL (BEAKER) (test wezd=0710) <5 /HPF SQUAMOUS EPITHELIAL MANUAL (BEAKER) (test None Seen /HPF irlx=7584) SOURCE(BEAKER) (test mqob=2805) KETONE, [id number] 22:32:00 Test Item Value Reference Range Comments KETONES, BLOOD (BEAKER) (test hooh=9420) 0.6 mmol/L <0.4 BLOOD GAS, [id number] 22:30:00 Test Item Value Reference Range Comments PH VENOUS (BEAKER) (test crxc=148) 7.39 7.32-7.42 PCO2 VENOUS (BEAKER) (test khph=640) 48 mmHg 41-51 PO2 VENOUS (BEAKER) (test vfwf=404) 28 mmHg 25-40 O2 SATURATION VENOUS (BEAKER) (test cood=921) 51.3 % 40.0-70.0 HCO3 VENOUS (BEAKER) (test ropm=890) 29 mmol/L 21-29 BASE EXCESS VENOUS (BEAKER) (test kcci=981) 3.0 mmol/L -2.0-3.0 PATIENT TEMPERATURE (BEAKER) (test qwhc=3368) 37.0 C FIO2 (BEAKER) (test uxtx=4403) 21.0 % SCREEN, [id number] 22:29:00 Test Item Value Reference Range Comments TEST URINE (BEAKER) (test mkxe=175) Negative TROPONIN [id number] 21:42:00 Test Item Value Reference Range Comments TROPONIN I (BEAKER) (test pggt=664) < ng/mL 0.00-0.15 Troponin I (TnI) levels [...] and persistent tachyarrhythmia.CREATINE KINASE (CK), TOTAL AND [id number] 21:41:00 Test Item Value Reference Range Comments CREATINE KINASE TOTAL (BEAKER) (test akgu=781) 78 U/L 25-235 CREATINE KINASE-MB (BEAKER) (test oble=054) 0.4 ng/mL 0.0-4.9 CREATINE KINASE-MB INDEX (BEAKER) (test ydyr=961) 0.5 % CK-MB Reference Range:<5 Normal5-10 Borderline>10 AbnormalCOMPREHENSIVE METABOLIC [id number] 21:34:00 Test Item Value Reference Range Comments TOTAL PROTEIN (BEAKER) 8.8 gm/dL 6.0-8.5 Specimen moderately (test ujzp=897) hemolyzed ALBUMIN (BEAKER) (test 4.3 g/dL 3.5-5.0 Specimen moderately eldp=4807) hemolyzed ALKALINE PHOSPHATASE 124 U/L 30-115 (BEAKER) (test vfvv=884) BILIRUBIN TOTAL (BEAKER) 0.4 mg/dL 0.1-1.2 Specimen moderately (test qece=758) hemolyzed SODIUM (BEAKER) (test 130 meq/L 135-148 sftz=363) POTASSIUM (BEAKER) (test 5.2 meq/L 3.6-5.5 Specimen moderately miyj=499) hemolyzed CHLORIDE (BEAKER) (test 93 meq/L 98-106 cbbs=971) CO2 (BEAKER) (test 24 meq/L 20-29 jfbn=721) BLOOD UREA NITROGEN 11 mg/dL 10-26 (BEAKER) (test hiiz=258) CREATININE (BEAKER) (test 0.90 mg/dL 0.50-1.20 Specimen moderately wsqg=491) hemolyzed GLUCOSE RANDOM (BEAKER) 483 mg/dL 70-110 (test zhbr=471) CALCIUM (BEAKER) (test 9.6 mg/dL 8.5-10.5 nhcr=657) AST (SGOT) (BEAKER) (test 21 U/L 5-40 Specimen moderately orcy=192) hemolyzed ALT (SGPT) (BEAKER) (test 14 U/L 5-50 Specimen moderately jnym=999) hemolyzed EGFR (BEAKER) (test 66 mL/min/1.73 sq m ESTIMATED GFR IS NOT tjvi=6724) ACCURATE CREATININE CLEARANCE IN PREDICTING GLOMERULAR FILTRATION RATE. ESTIMATED GFR IS NOT APPLICABLE FOR DIALYSIS PATIENTS. [id number] 21:32:00 Test Item Value Reference Range Comments LIPASE (BEAKER) (test kjbc=825) 28 U/L 6-51 CBC W/PLT COUNT & AUTO [id number] 20:55:00 Test Item Value Reference Range Comments WHITE BLOOD CELL COUNT (BEAKER) (test peab=572) 6.6 K/ L 4.0-10.0 RED BLOOD CELL COUNT (BEAKER) (test pyem=220) 4.78 M/ L 4.00-5.00 HEMOGLOBIN (BEAKER) (test wsdg=890) 12.9 GM/DL 12.0-15.0 HEMATOCRIT (BEAKER) (test htew=942) 39.6 % 36.0-45.0 MEAN CORPUSCULAR VOLUME (BEAKER) (test xngz=987) 82.8 fL 82.0-99.0 MEAN CORPUSCULAR HEMOGLOBIN (BEAKER) (test 26.9 pg 27.0-33.0 hzvz=844) MEAN CORPUSCULAR HEMOGLOBIN CONC (BEAKER) (test 32.5 GM/DL 32.0-36.0 bywg=290) RED CELL DISTRIBUTION WIDTH (BEAKER) (test 14.0 % 10.3-14.2 rrpl=506) PLATELET COUNT (BEAKER) (test zaze=482) 335 K/CU MM 150-430 MEAN PLATELET VOLUME (BEAKER) (test ltvs=271) 7.7 fL 6.5-10.5 NUCLEATED RED BLOOD CELLS (BEAKER) (test 0 /100 WBC 0-0 ryzc=073) NEUTROPHILS RELATIVE PERCENT (BEAKER) (test 56 % qzeg=354) LYMPHOCYTES RELATIVE PERCENT (BEAKER) (test 36 % fccz=994) MONOCYTES RELATIVE PERCENT (BEAKER) (test 6 % prjr=791) EOSINOPHILS RELATIVE PERCENT (BEAKER) (test 2 % vxsd=993) BASOPHILS RELATIVE PERCENT (BEAKER) (test 0 % ezul=115) NEUTROPHILS ABSOLUTE COUNT (BEAKER) (test 3.70 K/ L 1.80-8.00 bdhm=671) LYMPHOCYTES ABSOLUTE COUNT (BEAKER) (test 2.30 K/ L 1.48-4.50 cpzp=219) MONOCYTES ABSOLUTE COUNT (BEAKER) (test 0.40 K/ L 0.00-1.30 bfyq=668) EOSINOPHILS ABSOLUTE COUNT (BEAKER) (test 0.20 K/ L 0.00-0.50 ekjx=733) BASOPHILS ABSOLUTE COUNT (BEAKER) (test 0.00 K/ L 0.00-0.20 zoch=249) POCT-GLUCOSE [id number] 20:56:00 Test Item Value Reference Range Comments POC-GLUCOSE METER (BEAKER) 446 mg/dL 70-110 Notified KIRIT DALTON/TESTED AT [facility] (test dxjd=1263) [address] [facility] [place] [id number]
--- NOTE | 2019-05-10 16:39 | RAD REPORT ---
EXAM DESCRIPTION: RAD - Chest Pa And Lat (2 Views) - 05/10/2019 4:32 pm CLINICAL HISTORY: right sided chest pain Chest pain. COMPARISON: Chest Single View dated 04/20/2019; Chest Single View dated 03/24/2018; CHEST SINGLE VIEW dated 07/03/2014 FINDINGS: Lungs are mildly emphysematous but clear. No focal infiltrate evident. The heart is normal in size. No displaced fractures. IMPRESSION: Mild COPD.
[2019-05-10] MEDS ORDERED: ONDANSETRON 4 MG/2 ML VIAL ONE (16:54)
[2019-05-10] MEDS ORDERED: MORPHINE 4 MG/ML SYR ONE (16:54)
[2019-05-10] MEDS ORDERED: NA CHLORIDE 0.9% 100 ML IV ONE (17:04)
[2019-05-10 18:00] LABS: Absolute Lymphocytes (CBC) 2.5 K/uL (0.7-4.9); Basophils % 0.9 % (0-1.3); Hematocrit 32.5 % (36.0-45.0); Lymphocytes % 38.4 % (15.3-44.8); MPV 7.8 fL (7.6-11.3)
--- NOTE | 2019-05-10 18:15 | RAD REPORT ---
EXAM DESCRIPTION: CT - Chest For Pe Angio - 05/10/2019 5:59 pm CLINICAL HISTORY: Chest pain. right sided chest pain COMPARISON: No comparisons TECHNIQUE: CT angiogram of the pulmonary arteries was performed with MIP. All CT scans are performed using dose optimization technique as appropriate and may include automated exposure control or mA/KV adjustment according to patient size. FINDINGS: No evidence of pulmonary thromboembolism. No acute aortic finding demonstrated. Small opacity is present in the medial aspect of the right middle lobe, likely a small infiltrate/pne umonia. The lungs are otherwise clear. No significant pericardial or pleural fluid. No concerning bony finding. IMPRESSION: No evidence of pulmonary thromboembolism. Small infiltrate/ pneumonia in medial right middle lobe.
[2019-05-10 18:34] LABS: Albumin 3.7 g/dL (3.4-5.0); Bilirubin Total 0.2 mg/dL (0.2-1.0); Potassium 4.2 mmol/L (3.5-5.1); Protein, Total 7.9 g/dL (6.4-8.2)
[2019-05-10] MEDS ORDERED: NA CHLORIDE 0.9% 1,000 ML ONE (18:49)
[2019-05-10] MEDS ORDERED: INSULIN -REGULAR HUMAN 50 UNIT/0.5 ML ML ONE (18:49)
[2019-05-10] MEDS ORDERED: CEFTRIAXONE/SWI 1gm 1 GM/10 ML SYR ONE (18:52)
[2019-05-10] MEDS ORDERED: LIDOCAINE VISCOUS 2% SOLN 15 ML UDC ONE (19:05)
[2019-05-10] MEDS ORDERED: MAGNE/ALUM HYDROXD 30 ML UCUP ONE (19:05)
[2019-05-10] MEDS ORDERED: AZITHROMYCIN 250 MG TAB ONE (19:45)
--- NOTE | 2019-05-10 21:20 | ER ---
Nurse's Notes [facility] Name: Melissa De Oliveira Age: 53 yrs Sex: Female : 1965 Arrival Date: 05/10/2019 Time: 15:07 Bed 18 Private MD: Diagnosis: Pneumonia, unspecified organism;Hyperglycemia, unspecified Presentation: 05/10 15:13 Presenting complaint: Patient states: my LOWER right ribs are hurting real bad, i had tw2 pneumonia recently and they gave me a breathing tx and medicine with the machine, i did not fall and it just feels like somebody is stabbing me in my ribs, over 2 weeks ago was when i first had the pneumonia, i still feel short of breath. Transition of care: patient was not received from another setting of care. Onset of symptoms was May 10, 2019. Risk Assessment: Do you want to hurt yourself or someone else? Patient reports no desire to harm self or others. Initial Sepsis Screen: Does the patient meet any 2 criteria? HR > 90 bpm. No. Patient's initial sepsis screen is negative. Does the patient have a suspected source of infection? Yes: Productive cough/pneumonia. Care prior to arrival: None. 15:13 Method Of Arrival: Ambulatory tw2 15:13 Acuity: DEYA 3 tw2 Triage Assessment: 15:16 General: Appears in no apparent distress. Behavior is calm, cooperative, appropriate tw2 for age. Pain: Complains of pain in diaphragm, right lateral posterior chest and right lateral anterior chest. 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 - Coronavirus screen:: The patient has NOT traveled to [place], [place], or [place] in the past 14 days. - Social history:: Smoking status: Patient denies any tobacco usage or history of. - Ebola Screening: : Patient denies travel to an Ebola-affected area in the 21 days before illness onset. Screenin:11 Abuse screen: Denies threats or abuse. Nutritional screening: No deficits noted. tw2 Tuberculosis screening: No symptoms or risk factors identified. Fall Risk None identified. Assessment: 16:40 General: Appears in no apparent distress. well groomed, well developed, well nourished, sg Behavior is calm, cooperative, appropriate for age. Pain: Complains of pain in right lateral anterior chest and right lateral posterior chest Quality of pain is described as aching, sharp. Neuro: Level of Consciousness is awake, alert, obeys commands, Oriented to person, place, time, Facial symmetry appears normal. Cardiovascular: Capillary refill < 3 seconds is brisk in bilateral fingers Patient's skin is warm and dry. Chest pain is denied. Respiratory: Reports cough that is non-productive, persistent Airway is patent Respiratory effort is even, unlabored, Respiratory pattern is regular, symmetrical. GI: No signs and/or symptoms were reported involving the gastrointestinal system. : No signs and/or symptoms were reported regarding the genitourinary system. EENT: No signs and/or symptoms were reported regarding the EENT system. Derm: Skin is intact, is healthy with good turgor, Skin is dry, Skin is pale, Skin temperature is warm. Musculoskeletal: Circulation, motion, and sensation intact. Range of motion: intact in all extremities. 19:15 Reassessment: Patient appears in no apparent distress at this time. Patient and/or wh family updated on plan of care and expected duration. Pain level reassessed. Patient is alert, oriented x 3, equal unlabored respirations, skin warm/dry/pink. 20:19 Reassessment: Pt BS rechecked BGL 46, informed provider, Pt given 2 orange juice and wh crackers. 20:30 Reassessment: Patient appears in no apparent distress at this time. No changes from previously documented assessment. Patient and/or family updated on plan of care and expected duration. Pain level reassessed. Patient is alert, oriented x 3, equal unlabored respirations, skin warm/dry/pink. 21:37 Reassessment: Patient appears in no apparent distress at this time. No changes from previously documented assessment. Patient and/or family updated on plan of care and expected duration. Pain level reassessed. Patient is alert, oriented x 3, equal unlabored respirations, skin warm/dry/pink. Patient states feeling better. Patient states symptoms have improved. Vital Signs: 15:14 BP 129 / 81; Pulse 106; Resp 18; Temp 97.6(O); Pulse Ox 100% on R/A; Weight 47.63 kg tw2 (R); Height 5 ft. 4 in. (162.56 cm); Pain 7/10; 19:00 BP 151 / 85; Pulse 85; Resp 18; Pulse Ox 99% on R/A; wh 20:15 BP 128 / 78; Pulse 84; Resp 18; Pulse Ox 99% on R/A; wh 21:00 BP 130 / 77; Pulse 96; Resp 18; Pulse Ox 100% on R/A; wh 15:14 Body Mass Index 18.02 (47.63 kg, 162.56 cm) tw2 ED Course: 15:07 Patient arrived in ED. rg4 15:14 Triage completed. tw2 15:14 Arm band placed on. tw2 15:17 Bed in low position. Call light in reach. tw2 15:28 Irwin Vick PA is PHCP. [facility] 15:28 Yogesh Jimenez MD is Attending Physician. [facility] 16:00 Dl Joseph, KIRIT is Primary Nurse. 16:33 Chest Pa And Lat (2 Views) XRAY In Process Unspecified. EDMS 17:06 Missed attempt(s): 22 gauge in left forearm. Bleeding controlled, band aid applied, ca1 catheter tip intact. 17:40 PHCP role handed off by Irwin Vick PA pm1 17:40 Ari Agee NP is PHCP. pm1 17:59 CT Chest For PE Angio In Process Unspecified. EDMS 18:00 Initial lab(s) drawn, by ct, sent to lab. Inserted saline lock: 22 gauge in left sg antecubital area, using aseptic technique. Blood collected. 19:26 Napoleon Garza is Primary Nurse. 21:38 No provider procedures requiring assistance completed. IV discontinued, intact, wh bleeding controlled, No redness/swelling at site. Administered Medications: 17:40 Drug: Zofran 4 mg Route: IVP; Site: left antecubital; 19:55 Follow up: Response: No adverse reaction; Nausea is decreased 17:45 Drug: morphine 4 mg {Note: medication administered via IV in a NS 100 mL bolus.} Route: sg IVP; Site: left antecubital; 19:54 Follow up: Response: No adverse reaction; Pain is decreased; RASS: Alert and Calm (0) 18:50 Drug: Rocephin 1 grams Route: IV; Rate: calculated rate; Site: left antecubital; 19:55 Follow up: Response: No adverse reaction; IV Status: Completed infusion 19:00 Drug: NS 0.9% 1000 ml Route: IV; Rate: 1000 ml; Site: left antecubital; 19:55 Follow up: Response: No adverse reaction; IV Status: Completed infusion 19:06 Drug: Insulin Regular Human 10 units {Co-Signature: iw (Jyothi Chandra RN).} Route: sg IVP; Site: left antecubital; 21:39 Follow up: Response: No adverse reaction; Blood sugar is lowered 19:06 Drug: GI Cocktail without - (Maalox Suspension 30 ml, Lidocaine Liquid 2 % 15 sg ml) Route: PO; 19:55 Follow up: Response: No adverse reaction; Pain is decreased 19:52 Drug: Zithromax 500 mg Route: PO; 21:39 Follow up: Response: No adverse reaction Outcome: 21:19 Discharge ordered by MD. pm1 21:38 Discharged to home ambulatory. 21:38 Condition: stable 21:38 Discharge instructions given to patient, Instructed on discharge instructions, follow up and referral plans. medication usage, POC Demonstrated understanding of instructions, follow-up care, medications, POC Prescriptions given X 1. 21:40 Patient left the ED. Signatures: Dispatcher [employer] EDDl Haynes RN RN sg Irwin Vick PA PA jmm Marinas, Patrick, [place] SEWER PIPE PRESS OPERATOR pm1 Jo Ann Weaver RN RN tw2 Nichol Cabezas 4 Napoleon Garza Montse Doyle RN RN ca1 Jyothi rodriguez
--- NOTE | 2019-05-10 21:20 | EDPHYS ---
Physician Documentation [facility] Name: Melissa De Oliveira Age: 53 yrs Sex: Female : 1965 Arrival Date: 05/10/2019 Time: 15:07 Bed 18 Private MD: ED Physician Yogesh Jimenez HPI: 05/10 15:53 This 53 yrs old Female presents to ER via Ambulatory with complaints of Rib jmm Pain. 15:53 The patient or guardian reports chest pain that is located primarily in the anterior jmm chest wall, right. Onset: gradually, 2 week(s) ago. The pain does not radiate. The chest pain is described as sharp. This is a 53 year old female with a history of dm, that presents to the ED with complaints of right sided chest pain which has been ongoing since being diagnosed with pneumonia. Patient was prescribed oral abx. Patient was prescribed nebulizer by pcp. . 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 - Coronavirus screen:: The patient has NOT traveled to [place], [place], or [place] in the past 14 days. - Social history:: Smoking status: Patient denies any tobacco usage or history of. - Ebola Screening: : Patient denies travel to an Ebola-affected area in the 21 days before illness onset. ROS: 15:53 Constitutional: Negative for fever, chills, and weight loss. jmm 15:53 Respiratory: Negative for shortness of breath, cough, wheezing, and pleuritic chest pain, Abdomen/GI: Negative for abdominal pain, nausea, vomiting, diarrhea, and constipation. 15:53 Cardiovascular: Positive for chest pain. 15:53 All other systems are negative. Exam: 15:53 Constitutional: This is a well developed, well nourished patient who is awake, alert, jmm and in no acute distress. Head/Face: atraumatic. Eyes: EOMI, no conjunctival erythema appreciated ENT: Moist Mucus Membranes Neck: Trachea midline, Supple Chest/axilla: Normal chest wall appearance and motion. 15:53 Respiratory: Normal respirations, no respiratory distress appreciated Abdomen/GI: Non distended, soft Back: Normal ROM Skin: General appearance color normal MS/ Extremity: Moves all extremities, no obvious deformities appreciated, no edema noted to the lower extremities Neuro: Awake and alert, normal gait Psych: Behavior is normal, Mood is normal, Patient is cooperative and pleasant 15:53 Cardiovascular: Rate: normal, Rhythm: regular, Pulses: no pulse deficits are appreciated. Vital Signs: 15:14 BP 129 / 81; Pulse 106; Resp 18; Temp 97.6(O); Pulse Ox 100% on R/A; Weight 47.63 kg tw2 (R); Height 5 ft. 4 in. (162.56 cm); Pain 7/10; 19:00 BP 151 / 85; Pulse 85; Resp 18; Pulse Ox 99% on R/A; wh 20:15 BP 128 / 78; Pulse 84; Resp 18; Pulse Ox 99% on R/A; wh 21:00 BP 130 / 77; Pulse 96; Resp 18; Pulse Ox 100% on R/A; wh 15:14 Body Mass Index 18.02 (47.63 kg, 162.56 cm) tw2 MDM: 15:30 Patient medically screened. [facility] 18:25 Data reviewed: vital signs. Data interpreted: Pulse oximetry: on room air is 100 %. pm1 Interpretation: normal. 21:19 Counseling: I had a detailed discussion with the patient and/or guardian regarding: the pm1 historical points, exam findings, and any diagnostic results supporting the discharge/admit diagnosis, lab results, radiology results, the need for outpatient follow up, to return to the emergency department if symptoms worsen or persist or if there are any questions or concerns that arise at home. 05/10 16:45 Order name: CBC with Diff; Complete Time: 18:18 [facility] 05/10 16:45 Order name: CMP; Complete Time: 18:37 [facility] 05/10 15:29 Order name: Chest Pa And Lat (2 Views) XRAY; Complete Time: 16:43 [facility] 05/10 20:30 Order name: Glucose, Ancillary Testing; Complete Time: 20:51 [facility] 05/10 21:02 Order name: Glucose, Ancillary Testing; Complete Time: 21:36 [facility] 05/10 21:27 Order name: Glucose, Ancillary Testing; Complete Time: 21:36 [facility] 05/10 16:45 Order name: CT Chest For PE Angio; Complete Time: 18:24 [facility] 05/10 16:45 Order name: Saline Lock; Complete Time: 18:23 [facility] 05/10 19:26 Order name: Fingerstick Glucose; Complete Time: 20:18 pm1 Administered Medications: 17:40 Drug: Zofran 4 mg Route: IVP; Site: left antecubital; 19:55 Follow up: Response: No adverse reaction; Nausea is decreased 17:45 Drug: morphine 4 mg {Note: medication administered via IV in a NS 100 mL bolus.} Route: sg IVP; Site: left antecubital; 19:54 Follow up: Response: No adverse reaction; Pain is decreased; RASS: Alert and Calm (0) 18:50 Drug: Rocephin 1 grams Route: IV; Rate: calculated rate; Site: left antecubital; 19:55 Follow up: Response: No adverse reaction; IV Status: Completed infusion 19:00 Drug: NS 0.9% 1000 ml Route: IV; Rate: 1000 ml; Site: left antecubital; 19:55 Follow up: Response: No adverse reaction; IV Status: Completed infusion 19:06 Drug: Insulin Regular Human 10 units {Co-Signature: iw (Jyothi Chandra RN).} Route: sg IVP; Site: left antecubital; 21:39 Follow up: Response: No adverse reaction; Blood sugar is lowered 19:06 Drug: GI Cocktail without - (Maalox Suspension 30 ml, Lidocaine Liquid 2 % 15 sg ml) Route: PO; 19:55 Follow up: Response: No adverse reaction; Pain is decreased 19:52 Drug: Zithromax 500 mg Route: PO; 21:39 Follow up: Response: No adverse reaction Disposition: 05/11 09:02 Co-signature as Attending Physician, Yogesh Jimenez MD I agree with the assessment and thomas plan of care. Disposition: 05/10/19 21:19 Discharged to Home. Impression: Pneumonia, unspecified organism, Hyperglycemia, unspecified. - Condition is Stable. - Discharge Instructions: Hyperglycemia, Community-Acquired Pneumonia, Adult, Blood Glucose Monitoring, Adult. - Prescriptions for Zithromax Z- Ken 250 mg Oral Tablet - take 1 tablet by ORAL route as directed for 5 days Day 1 - take two (2) tablets one time. Day 2, 3, 4 , 5 take one (1) tablet once daily.; 6 tablet. - Medication Reconciliation Form, Thank You Letter, Antibiotic Education, Prescription Opioid Use form. - Follow up: Emergency Department; When: As needed; Reason: Worsening of condition. Follow up: Private Physician; When: 2 - 3 days; Reason: Recheck today's complaints, Continuance of care, Re-evaluation by your physician. - Problem is new. - Symptoms have improved. Signatures: Dispatcher [employer] EDMS Dl Joseph RN RN sg Anderson, Corey, MD MD cha Mickail, Joel, PA PA jmm Ari Agee, SEED CLEANER OPERATOR SEED CLEANER OPERATOR pm1 Jo Ann Weaver RN RN tw2 Napoleon Garza Jyothi Chandra RN Corrections: (The following items were deleted from the chart) 05/10 21:19 21:19 05/10/2019 21:19 Discharged to Home. Impression: Pneumonia, unspecified organism; pm1 Hyperglycemia, unspecified. Condition is Stable. Forms are Medication Reconciliation Form, Thank You Letter, Antibiotic Education, Prescription Opioid Use. pm1 21:40 21:19 05/10/2019 21:19 Discharged to Home. Impression: Pneumonia, unspecified organism; wh Hyperglycemia, unspecified. Condition is Stable. Forms are Medication Reconciliation Form, Thank You Letter, Antibiotic Education, Prescription Opioid Use. Follow up: Emergency Department; When: As needed; Reason: Worsening of condition. Follow up: Private Physician; When: 2 - 3 days; Reason: Recheck today's complaints, Continuance of care, Re-evaluation by your physician. Problem is new. Symptoms have improved. pm1
[2019-05-10 22:12] VITALS: TEMP 97.6
[2019-05-10 22:16] VITALS: BP 130/77; O2SAT 100
== END 2019-05-10 21:40 | disposition home or self-care (01) ==
LOC: ER 15:05
DX: J18.9 Pneumonia, unspecified organism (principal); E11.65 Type 2 diabetes mellitus with hyperglycemia; Z79.4 Long term (current) use of insulin; Z88.5 Allergy status to narcotic agent; Z88.6 Allergy status to analgesic agent; Z88.8 Allergy status to other drugs, medicaments and biological substances
CPT/HCPCS: 36415; 71046; 71275; 80053; 82947; 85025; 96365; 96375; 99284; J0696; J2405; J7030; Q9967

== ENCOUNTER 2019-06-25 12:00 | Emergency (ER) | payer SELFPAY ==
--- OUTSIDE RECORDS SUMMARY | 2019-06-25 12:03 | XMS REPORT ---
:1965 [facility] Organization [facility] Address [address] [place] [address] Care Team Providers Name Role Phone PRINCESS [...] Item Value Reference Range Comments POC-GLUCOSE METER (CrossTx) (test 277 mg/dL 70-110 TESTED AT [address] bcru=2662) [facility] [address] POCT-GLUCOSE [id number] 11:53:00 Test Item Value Reference Range Comments POC-GLUCOSE METER (BEInvoiceable) 411 mg/dL 70-110 TESTED AT [address] (test eyte=7145) [facility] [address] RAD, SPINE, CERVICAL, 2 OR 3 [id number] 23:46:00Reason for exam:->neck painFINAL REPORT RAD, SPINE, [...] Grayson Verified Date/Time: 10/06/2017 23:46:30 Reading Location: [address] [place], SPINE, CERVICAL, WO [id number] 23:44:00Reason for exam:->neck painReason for exam:-> EMESISIs [...] Verified Date /Time: 10/06/2017 23:44:40 Reading Location: [address] Transitional Reading Room CT, BRAIN, WITHOUT [id number] 23:24:00Reason for exam:->occipital headacheReason for exam:->EMESISIs the [...] MDReport Verified Date/Time: 10/06/2017 23:24:44 Reading Location: [address] Reading Room Electronically signed by: CARLA ODEN M.D. on 11:24 PMTROPONIN [id number] 22:56:00 Test Item Value Reference Range Comments TROPONIN I (BEAKER) (test oyxk=270) < ng/mL 0.00-0.15 Troponin I (TnI) levels [...] acute neurological disease, and persistent tachyarrhythmia.COMPREHENSIVE METABOLIC [id number] 22:50:00 Test Item Value Reference Range Comments TOTAL PROTEIN (BEAKER) 8.5 gm/dL 6.0-8.5 (test agxm=864) ALBUMIN (BEAKER) (test 4.3 g/dL 3.5-5.0 qlyb=1669) ALKALINE PHOSPHATASE 126 U/L 30-115 (BEAKER) (test vfjc=827) BILIRUBIN TOTAL (BEAKER) 0.5 mg/dL 0.1-1.2 (test mxed=586) SODIUM (BEAKER) (test 134 meq/L 135-148 drvi=577) POTASSIUM (BEAKER) (test 4.3 meq/L 3.6-5.5 kfcw=302) CHLORIDE (BEAKER) (test 97 meq/L 98-106 ntbt=799) CO2 (BEAKER) (test 24 meq/L 20-29 apbt=506) BLOOD UREA NITROGEN 17 mg/dL 10-26 (BEAKER) (test unrd=471) CREATININE (BEAKER) (test 1.01 mg/dL 0.50-1.20 ubgn=510) GLUCOSE RANDOM (BEAKER) 414 mg/dL 70-110 (test dwjy=275) CALCIUM (BEAKER) (test 9.6 mg/dL 8.5-10.5 hhfd=326) AST (SGOT) (BEAKER) (test 11 U/L 5-40 tkfc=472) ALT (SGPT) (BEAKER) (test 9 U/L 5-50 fmqx=888) EGFR (BEAKER) (test 58 mL/min/1.73 sq m ESTIMATED GFR IS NOT mqoz=1980) ACCURATE CREATININE CLEARANCE IN PREDICTING GLOMERULAR FILTRATION RATE. ESTIMATED GFR IS NOT APPLICABLE FOR DIALYSIS PATIENTS. [id number] 22:42:00 Test Item Value Reference Range Comments AMYLASE (BEAKER) (test rzxd=731) 58 U/L 30-110 CBC W/PLT COUNT & AUTO [id number] 22:22:00 Test Item Value Reference Range Comments WHITE BLOOD CELL COUNT (BEAKER) (test ayxe=387) 10.9 K/ L 4.0-10.0 RED BLOOD CELL COUNT (BEAKER) (test exdr=999) 4.45 M/ L 4.00-5.00 HEMOGLOBIN (BEAKER) (test ggwr=065) 12.2 GM/DL 12.0-15.0 HEMATOCRIT (BEAKER) (test qtpp=602) 37.0 % 36.0-45.0 MEAN CORPUSCULAR VOLUME (BEAKER) (test ityq=898) 83.2 fL 82.0-99.0 MEAN CORPUSCULAR HEMOGLOBIN (BEAKER) (test 27.4 pg 27.0-33.0 hqck=070) MEAN CORPUSCULAR HEMOGLOBIN CONC (BEAKER) (test 32.9 GM/DL 32.0-36.0 ziqt=438) RED CELL DISTRIBUTION WIDTH (BEAKER) (test 14.0 % 10.3-14.2 lnxp=013) PLATELET COUNT (BEAKER) (test usas=147) 359 K/CU MM 150-430 MEAN PLATELET VOLUME (BEAKER) (test fdex=280) 7.8 fL 6.5-10.5 NUCLEATED RED BLOOD CELLS (BEAKER) (test 0 /100 WBC 0-0 htqz=142) NEUTROPHILS RELATIVE PERCENT (BEAKER) (test 71 % ovvf=478) LYMPHOCYTES RELATIVE PERCENT (BEAKER) (test 23 % hliq=297) MONOCYTES RELATIVE PERCENT (BEAKER) (test 5 % zpbd=568) EOSINOPHILS RELATIVE PERCENT (BEAKER) (test 0 % mtfd=047) BASOPHILS RELATIVE PERCENT (BEAKER) (test 1 % kdym=314) NEUTROPHILS ABSOLUTE COUNT (BEAKER) (test 7.70 K/ L 1.80-8.00 waay=955) LYMPHOCYTES ABSOLUTE COUNT (BEAKER) (test 2.50 K/ L 1.48-4.50 unpf=190) MONOCYTES ABSOLUTE COUNT (BEAKER) (test 0.60 K/ L 0.00-1.30 tidh=689) EOSINOPHILS ABSOLUTE COUNT (BEAKER) (test 0.00 K/ L 0.00-0.50 ttds=240) BASOPHILS ABSOLUTE COUNT (BEAKER) (test 0.10 K/ L 0.00-0.20 yzze=270) URINALYSIS W/ [id number] 22:09:00 Test Item Value Reference Range Comments COLOR (BEAKER) (test hinh=586) Yellow CLARITY (BEAKER) (test ldjb=095) Clear SPECIFIC GRAVITY UA (BEAKER) (test peez=382) <= 1.001-1.035 PH UA (BEAKER) (test pzia=288) 6.0 5.0-8.0 PROTEIN UA (BEAKER) (test ecpv=397) Negative Negative GLUCOSE UA (BEAKER) (test szju=210) >=1000 mg/dL Negative KETONES UA (BEAKER) (test rgzu=990) Negative Negative BILIRUBIN UA (BEAKER) (test hhlj=454) Negative Negative BLOOD UA (BEAKER) (test aawv=025) Trace Negative NITRITE UA (BEAKER) (test virx=869) Positive Negative LEUKOCYTE ESTERASE UA (BEAKER) (test oyzk=966) Negative Negative UROBILINOGEN UA (BEAKER) (test dhkc=539) 0.2 mg/dL 0.2-1.0 BACTERIA (BEAKER) (test ddjs=970) Many RBC UA-MANUAL (BEAKER) (test awhs=0016) <5 /HPF WBC UA-MANUAL (BEAKER) (test sdjd=4879) 10-20 /HPF SQUAMOUS EPITHELIAL MANUAL (BEAKER) (test <5 /HPF nrpl=5464) SOURCE(BEAKER) (test yzwj=1490) POCT-GLUCOSE [id number] 07:19:00 Test Item Value Reference Range Comments POC-GLUCOSE METER (BEAKER) 241 mg/dL 70-110 TESTED AT [address] (test bzca=8977) [address] [facility] [address] [address], [id number] 19:16:00FINAL REPORT CT OF THE ABDOMEN AND [...] MDReport Verified Date/Time: 09/22/2017 19:16:29 Reading Location: [address] Consult Reading Room [facility] METABOLIC [id number] 17: 37:00 Test Item Value Reference Range Comments SODIUM (BEAKER) (test 134 meq/L 135-148 jvfb=566) POTASSIUM (BEAKER) (test 5.1 meq/L 3.6-5.5 Specimen markedly klfi=046) hemolyzed CHLORIDE (BEAKER) (test 98 meq/L 98-106 zvgc=047) CO2 (BEAKER) (test 16 meq/L 20-29 zyzm=493) BLOOD UREA NITROGEN 9 mg/dL 10-26 (BEAKER) (test kjpz=874) CREATININE (BEAKER) (test 0.92 mg/dL 0.50-1.20 Specimen markedly lklc=102) hemolyzed GLUCOSE RANDOM (BEAKER) 408 mg/dL 70-110 (test ovri=934) CALCIUM (BEAKER) (test 9.6 mg/dL 8.5-10.5 bphk=811) EGFR (BEAKER) (test 64 mL/min/1.73 sq m ESTIMATED GFR IS NOT mffp=2409) ACCURATE CREATININE CLEARANCE IN PREDICTING GLOMERULAR FILTRATION RATE. ESTIMATED GFR IS NOT APPLICABLE FOR DIALYSIS PATIENTS. TROPONIN [id number] 17:07:00 Test Item Value Reference Range Comments TROPONIN I (BEAKER) (test xenv=643) < ng/mL 0.00-0.15 Troponin I (TnI) levels [...] and persistent tachyarrhythmia.CREATINE KINASE (CK), TOTAL AND [id number] 17:06:00 Test Item Value Reference Range Comments CREATINE KINASE TOTAL (BEAKER) (test ztrp=771) 68 U/L 25-235 CREATINE KINASE-MB (BEAKER) (test aken=139) 0.6 ng/mL 0.0-4.9 CREATINE KINASE-MB INDEX (BEAKER) (test dbrk=242) 0.9 % CK-MB Reference Range:<5 Normal5-10 Borderline>10 [id number] 17:00:00 Test Item Value Reference Range Comments LIPASE (BEAKER) (test mhcw=837) 26 U/L 6-51 [id number] 16:51:00 Test Item Value Reference Range Comments AMYLASE (BEAKER) (test ndlf=357) 32 U/L 30-110 Specimen markedly hemolyzed URINALYSIS W/ [id number] 16:21:00 Test Item Value Reference Range Comments COLOR (BEAKER) (test otpy=768) Yellow CLARITY (BEAKER) (test enxk=022) Slightly Cloudy SPECIFIC GRAVITY UA (BEAKER) (test iokc=541) <= 1.001-1.035 PH UA (BEAKER) (test tiwi=025) 5.5 5.0-8.0 PROTEIN UA (BEAKER) (test fmcb=944) Negative Negative GLUCOSE UA (BEAKER) (test dibi=046) >=1000 mg/dL Negative KETONES UA (BEAKER) (test haca=369) Negative Negative BILIRUBIN UA (BEAKER) (test ehko=276) Negative Negative BLOOD UA (BEAKER) (test btea=220) Trace Negative NITRITE UA (BEAKER) (test varv=115) Positive Negative LEUKOCYTE ESTERASE UA (BEAKER) (test Negative Negative clku=119) UROBILINOGEN UA (BEAKER) (test xfws=822) 0.2 mg/dL 0.2-1.0 BACTERIA (BEAKER) (test ebdh=436) Many AMORPHOUS CRYSTALS (BEAKER) (test lugt=8292) Moderate RBC UA-MANUAL (BEAKER) (test bhux=5088) 5-10 /HPF WBC UA-MANUAL (BEAKER) (test yyss=4715) 50-100 /HPF SQUAMOUS EPITHELIAL MANUAL (BEAKER) (test <5 /HPF ytry=2643) SOURCE(BEAKER) (test qzxm=3114) CBC W/PLT COUNT & AUTO [id number] 16:15:00 Test Item Value Reference Range Comments WHITE BLOOD CELL COUNT (BEAKER) (test egcr=367) 6.8 K/ L 4.0-10.0 RED BLOOD CELL COUNT (BEAKER) (test kwzw=928) 4.46 M/ L 4.00-5.00 HEMOGLOBIN (BEAKER) (test bkrm=943) 12.5 GM/DL 12.0-15.0 HEMATOCRIT (BEAKER) (test vfmp=317) 37.3 % 36.0-45.0 MEAN CORPUSCULAR VOLUME (BEAKER) (test fynm=964) 83.7 fL 82.0-99.0 MEAN CORPUSCULAR HEMOGLOBIN (BEAKER) (test 28.0 pg 27.0-33.0 kjuv=677) MEAN CORPUSCULAR HEMOGLOBIN CONC (BEAKER) (test 33.4 GM/DL 32.0-36.0 eyxh=859) RED CELL DISTRIBUTION WIDTH (BEAKER) (test 13.4 % 10.3-14.2 bbnu=567) PLATELET COUNT (BEAKER) (test kzyy=142) 340 K/CU MM 150-430 MEAN PLATELET VOLUME (BEAKER) (test whmz=966) 7.9 fL 6.5-10.5 NUCLEATED RED BLOOD CELLS (BEAKER) (test 0 /100 WBC 0-0 tira=047) NEUTROPHILS RELATIVE PERCENT (BEAKER) (test 60 % mxec=733) LYMPHOCYTES RELATIVE PERCENT (BEAKER) (test 32 % wffm=494) MONOCYTES RELATIVE PERCENT (BEAKER) (test 7 % qkbs=675) EOSINOPHILS RELATIVE PERCENT (BEAKER) (test 1 % llcf=651) BASOPHILS RELATIVE PERCENT (BEAKER) (test 0 % cfdx=532) NEUTROPHILS ABSOLUTE COUNT (BEAKER) (test 4.00 K/ L 1.80-8.00 pvst=917) LYMPHOCYTES ABSOLUTE COUNT (BEAKER) (test 2.20 K/ L 1.48-4.50 nqqu=413) MONOCYTES ABSOLUTE COUNT (BEAKER) (test 0.50 K/ L 0.00-1.30 rzlo=414) EOSINOPHILS ABSOLUTE COUNT (BEAKER) (test 0.10 K/ L 0.00-0.50 phxl=021) BASOPHILS ABSOLUTE COUNT (BEAKER) (test 0.00 K/ L 0.00-0.20 nqbv=069) POCT-GLUCOSE [id number] 15:36:00 Test Item Value Reference Range Comments POC-GLUCOSE METER (BEAKER) 284 mg/dL 70-110 TESTED AT [address] (test kgze=1628) [address] [facility] [address] [place], [id number] 15:32:00Reason for exam:->LLQ ABD PAINIs the patient [...] Valdezort Verified Date/Time: 07/07/2017 15:32:20 Reading Location: [place] [id number] Body Reading Room [id number] 14:41:00 Test Item Value Reference Range Comments LIPASE (BEAKER) (test pgdn=455) 32 U/L 6-51 COMPREHENSIVE METABOLIC [id number] 14:40:00 Test Item Value Reference Range Comments TOTAL PROTEIN (BEAKER) 7.1 gm/dL 6.0-8.5 (test cbfg=642) ALBUMIN (BEAKER) (test 3.6 g/dL 3.5-5.0 rjbh=6087) ALKALINE PHOSPHATASE 159 U/L 30-115 (BEAKER) (test qgrw=946) BILIRUBIN TOTAL (BEAKER) 0.3 mg/dL 0.1-1.2 (test sduc=411) SODIUM (BEAKER) (test 132 meq/L 135-148 hhxo=175) POTASSIUM (BEAKER) (test 4.1 meq/L 3.6-5.5 bakc=740) CHLORIDE (BEAKER) (test 98 meq/L 98-106 vkpe=450) CO2 (BEAKER) (test 27 meq/L 20-29 ereg=216) BLOOD UREA NITROGEN 13 mg/dL 10-26 (BEAKER) (test ltxw=681) CREATININE (BEAKER) (test 0.80 mg/dL 0.50-1.20 utaj=888) GLUCOSE RANDOM (BEAKER) 399 mg/dL 70-110 (test ovly=394) CALCIUM (BEAKER) (test 8.9 mg/dL 8.5-10.5 qjkw=223) AST (SGOT) (BEAKER) (test 9 U/L 5-40 saeg=502) ALT (SGPT) (BEAKER) (test 11 U/L 5-50 ogrs=220) EGFR (BEAKER) (test 76 mL/min/1.73 sq m ESTIMATED GFR IS NOT fgty=1657) ACCURATE CREATININE CLEARANCE IN PREDICTING GLOMERULAR FILTRATION RATE. ESTIMATED GFR IS NOT APPLICABLE FOR DIALYSIS PATIENTS. POCT-GLUCOSE [id number] 14:10:00 Test Item Value Reference Range Comments POC-GLUCOSE METER (BEAKER) 352 mg/dL 70-110 TESTED AT [facility] [address] [facility] (test npyh=5539) [facility] [address] CBC W/PLT COUNT & AUTO [id number] 13:30:00 Test Item Value Reference Range Comments WHITE BLOOD CELL COUNT (BEAKER) (test jbzx=845) 5.5 K/ L 4.0-10.0 RED BLOOD CELL COUNT (BEAKER) (test cbcd=723) 3.93 M/ L 4.00-5.00 HEMOGLOBIN (BEAKER) (test klcx=880) 10.9 GM/DL 12.0-15.0 HEMATOCRIT (BEAKER) (test xyzj=325) 32.8 % 36.0-45.0 MEAN CORPUSCULAR VOLUME (BEAKER) (test wiop=038) 83.4 fL 82.0-99.0 MEAN CORPUSCULAR HEMOGLOBIN (BEAKER) (test 27.8 pg 27.0-33.0 ysfh=978) MEAN CORPUSCULAR HEMOGLOBIN CONC (BEAKER) (test 33.3 GM/DL 32.0-36.0 tvny=337) RED CELL DISTRIBUTION WIDTH (BEAKER) (test 13.6 % 10.3-14.2 rpew=749) PLATELET COUNT (BEAKER) (test qvkp=235) 344 K/CU MM 150-430 MEAN PLATELET VOLUME (BEAKER) (test xaba=728) 8.5 fL 6.5-10.5 NEUTROPHILS RELATIVE PERCENT (BEAKER) (test 59 % ltfl=350) LYMPHOCYTES RELATIVE PERCENT (BEAKER) (test 36 % ndbp=886) MONOCYTES RELATIVE PERCENT (BEAKER) (test 4 % gjrc=282) EOSINOPHILS RELATIVE PERCENT (BEAKER) (test 1 % ulmi=129) BASOPHILS RELATIVE PERCENT (BEAKER) (test 0 % ypnr=716) NEUTROPHILS ABSOLUTE COUNT (BEAKER) (test 3.20 K/ L 1.80-8.00 pdxu=673) LYMPHOCYTES ABSOLUTE COUNT (BEAKER) (test 2.00 K/ L 1.48-4.50 pfou=004) MONOCYTES ABSOLUTE COUNT (BEAKER) (test 0.20 K/ L 0.00-1.30 wkzr=089) EOSINOPHILS ABSOLUTE COUNT (BEAKER) (test 0.10 K/ L 0.00-0.50 siqk=149) BASOPHILS ABSOLUTE COUNT (BEAKER) (test 0.00 K/ L 0.00-0.20 ubgs=739) URINALYSIS W/ [id number] 13:01:00 Test Item Value Reference Range Comments COLOR (BEAKER) (test bkhy=322) Light Yellow CLARITY (BEAKER) (test mghg=212) Clear SPECIFIC GRAVITY UA (BEAKER) (test xosw=314) <= 1.001-1.035 PH UA (BEAKER) (test urde=262) 6.0 5.0-8.0 PROTEIN UA (BEAKER) (test epuz=442) Negative Negative GLUCOSE UA (BEAKER) (test clyi=173) >=1000 mg/dL Negative KETONES UA (BEAKER) (test xope=838) Negative Negative BILIRUBIN UA (BEAKER) (test opjf=426) Negative Negative BLOOD UA (BEAKER) (test gfox=981) Negative Negative NITRITE UA (BEAKER) (test hscs=942) Negative Negative LEUKOCYTE ESTERASE UA (BEAKER) (test Negative Negative tbba=386) UROBILINOGEN UA (BEAKER) (test mbmv=212) 0.2 mg/dL 0.2-1.0 BACTERIA (BEAKER) (test jzac=039) Few RBC UA-MANUAL (BEAKER) (test qtav=4071) None Seen /HPF WBC UA-MANUAL (BEAKER) (test tcsv=9616) <5 /HPF SQUAMOUS EPITHELIAL MANUAL (BEAKER) (test None Seen /HPF xada=8035) SOURCE(BEAKER) (test kwge=8017) KETONE, [id number] 12:58:00 Test Item Value Reference Range Comments KETONES, BLOOD (BEAKER) (test zgek=9664) 0.1 mmol/L <0.4 BLOOD GAS, [id number] 12:48:00 Test Item Value Reference Range Comments PH VENOUS (BEAKER) (test nhor=370) 7.38 7.32-7.42 PCO2 VENOUS (BEAKER) (test wbzl=916) 46 mmHg 41-51 PO2 VENOUS (BEAKER) (test hcfa=128) 73 mmHg 25-40 O2 SATURATION VENOUS (BEAKER) (test hkbf=881) 94.5 % 40.0-70.0 HCO3 VENOUS (BEAKER) (test usuy=297) 27 mmol/L 21-29 BASE EXCESS VENOUS (BEAKER) (test jokc=964) 1.3 mmol/L -2.0-3.0 PATIENT TEMPERATURE (BEAKER) (test jwkr=9147) 37.0 C FIO2 (BEAKER) (test gmez=7054) 37.0 % POCT-GLUCOSE [id number] 12:04:00 Test Item Value Reference Range Comments POC-GLUCOSE METER (BEAKER) > mg/dL 70-110 OUTSIDE MEASURING RANGETESTED AT (test hvmz=7649) [address] [address] URINE [id number] 09:22:00 Test Item Value Reference Range Comments CULTURE (BEAKER) (test KLEBSIELLA PNEUMONIAE >100,000 col/mL xqwm=9418) SSP PNEUMONIAE Klebsiella pneumoniae ssp pneumoniae Ampicillin + Sulbactam (test code=6) Cefoxitin (test code=68) Ceftriaxone (test code=52) Gentamicin (test code=18) Levofloxacin (test code=22) Nitrofurantoin (test code=23) Piperacillin + Tazobactam (test code=29) Tetracycline (test code=2) Tobramycin (test code=25) Trimethoprim + Sulfamethoxazole (test code=47) POCT-GLUCOSE [id number] 23:15:00 Test Item Value Reference Range Comments POC-GLUCOSE METER (BEAKER) 227 mg/dL 70-110 TESTED AT [address] (test kyqj=1560) [facility] [address] URINALYSIS W/ [id number] 22:36:00 Test Item Value Reference Range Comments COLOR (BEAKER) (test tkfh=145) Yellow CLARITY (BEAKER) (test uwta=189) Clear SPECIFIC GRAVITY UA (BEAKER) (test sxaj=169) <= 1.001-1.035 PH UA (BEAKER) (test lmbb=489) 6.5 5.0-8.0 PROTEIN UA (BEAKER) (test bcat=959) Negative Negative GLUCOSE UA (BEAKER) (test yeni=875) >=1000 mg/dL Negative KETONES UA (BEAKER) (test xhju=070) Trace Negative BILIRUBIN UA (BEAKER) (test wvsh=523) Negative Negative BLOOD UA (BEAKER) (test qbvb=815) Negative Negative NITRITE UA (BEAKER) (test ffzw=643) Positive Negative LEUKOCYTE ESTERASE UA (BEAKER) (test Negative Negative telj=949) UROBILINOGEN UA (BEAKER) (test zfxf=181) 0.2 mg/dL 0.2-1.0 BACTERIA (BEAKER) (test ofox=374) Many RBC UA-MANUAL (BEAKER) (test wezj=6494) <5 /HPF WBC UA-MANUAL (BEAKER) (test nkmz=3268) <5 /HPF SQUAMOUS EPITHELIAL MANUAL (BEAKER) (test None Seen /HPF lbpn=6103) SOURCE(BEAKER) (test bzqn=3517) KETONE, [id number] 22:32:00 Test Item Value Reference Range Comments KETONES, BLOOD (BEAKER) (test olvj=1415) 0.6 mmol/L <0.4 BLOOD GAS, [id number] 22:30:00 Test Item Value Reference Range Comments PH VENOUS (BEAKER) (test byim=727) 7.39 7.32-7.42 PCO2 VENOUS (BEAKER) (test szbk=232) 48 mmHg 41-51 PO2 VENOUS (BEAKER) (test crqj=109) 28 mmHg 25-40 O2 SATURATION VENOUS (BEAKER) (test nnwc=726) 51.3 % 40.0-70.0 HCO3 VENOUS (BEAKER) (test vamo=987) 29 mmol/L 21-29 BASE EXCESS VENOUS (BEAKER) (test htbw=097) 3.0 mmol/L -2.0-3.0 PATIENT TEMPERATURE (BEAKER) (test nosp=7909) 37.0 C FIO2 (BEAKER) (test xvsu=0070) 21.0 % SCREEN, [id number] 22:29:00 Test Item Value Reference Range Comments TEST URINE (BEAKER) (test nqrv=998) Negative TROPONIN [id number] 21:42:00 Test Item Value Reference Range Comments TROPONIN I (BEAKER) (test faiw=001) < ng/mL 0.00-0.15 Troponin I (TnI) levels [...] and persistent tachyarrhythmia.CREATINE KINASE (CK), TOTAL AND [id number] 21:41:00 Test Item Value Reference Range Comments CREATINE KINASE TOTAL (BEAKER) (test hdig=530) 78 U/L 25-235 CREATINE KINASE-MB (BEAKER) (test zwwi=924) 0.4 ng/mL 0.0-4.9 CREATINE KINASE-MB INDEX (BEAKER) (test sdey=559) 0.5 % CK-MB Reference Range:<5 Normal5-10 Borderline>10 AbnormalCOMPREHENSIVE METABOLIC [id number] 21:34:00 Test Item Value Reference Range Comments TOTAL PROTEIN (BEAKER) 8.8 gm/dL 6.0-8.5 Specimen moderately (test zxcr=495) hemolyzed ALBUMIN (BEAKER) (test 4.3 g/dL 3.5-5.0 Specimen moderately fjan=1099) hemolyzed ALKALINE PHOSPHATASE 124 U/L 30-115 (BEAKER) (test gicg=194) BILIRUBIN TOTAL (BEAKER) 0.4 mg/dL 0.1-1.2 Specimen moderately (test avnx=382) hemolyzed SODIUM (BEAKER) (test 130 meq/L 135-148 rkkp=461) POTASSIUM (BEAKER) (test 5.2 meq/L 3.6-5.5 Specimen moderately pqaw=423) hemolyzed CHLORIDE (BEAKER) (test 93 meq/L 98-106 ilrb=632) CO2 (BEAKER) (test 24 meq/L 20-29 tsiz=587) BLOOD UREA NITROGEN 11 mg/dL 10-26 (BEAKER) (test tuad=741) CREATININE (BEAKER) (test 0.90 mg/dL 0.50-1.20 Specimen moderately ojvf=743) hemolyzed GLUCOSE RANDOM (BEAKER) 483 mg/dL 70-110 (test unig=370) CALCIUM (BEAKER) (test 9.6 mg/dL 8.5-10.5 sbzi=302) AST (SGOT) (BEAKER) (test 21 U/L 5-40 Specimen moderately blcx=752) hemolyzed ALT (SGPT) (BEAKER) (test 14 U/L 5-50 Specimen moderately maez=057) hemolyzed EGFR (BEAKER) (test 66 mL/min/1.73 sq m ESTIMATED GFR IS NOT fhky=5113) ACCURATE CREATININE CLEARANCE IN PREDICTING GLOMERULAR FILTRATION RATE. ESTIMATED GFR IS NOT APPLICABLE FOR DIALYSIS PATIENTS. [id number] 21:32:00 Test Item Value Reference Range Comments LIPASE (BEAKER) (test igzd=775) 28 U/L 6-51 CBC W/PLT COUNT & AUTO [id number] 20:55:00 Test Item Value Reference Range Comments WHITE BLOOD CELL COUNT (BEAKER) (test vdfi=786) 6.6 K/ L 4.0-10.0 RED BLOOD CELL COUNT (BEAKER) (test kdzb=144) 4.78 M/ L 4.00-5.00 HEMOGLOBIN (BEAKER) (test ausn=054) 12.9 GM/DL 12.0-15.0 HEMATOCRIT (BEAKER) (test zmvo=163) 39.6 % 36.0-45.0 MEAN CORPUSCULAR VOLUME (BEAKER) (test xtfd=003) 82.8 fL 82.0-99.0 MEAN CORPUSCULAR HEMOGLOBIN (BEAKER) (test 26.9 pg 27.0-33.0 cbhl=716) MEAN CORPUSCULAR HEMOGLOBIN CONC (BEAKER) (test 32.5 GM/DL 32.0-36.0 xemc=612) RED CELL DISTRIBUTION WIDTH (BEAKER) (test 14.0 % 10.3-14.2 kfdp=430) PLATELET COUNT (BEAKER) (test rkmy=361) 335 K/CU MM 150-430 MEAN PLATELET VOLUME (BEAKER) (test bmyt=353) 7.7 fL 6.5-10.5 NUCLEATED RED BLOOD CELLS (BEAKER) (test 0 /100 WBC 0-0 coap=012) NEUTROPHILS RELATIVE PERCENT (BEAKER) (test 56 % vwjd=021) LYMPHOCYTES RELATIVE PERCENT (BEAKER) (test 36 % udby=043) MONOCYTES RELATIVE PERCENT (BEAKER) (test 6 % qhza=645) EOSINOPHILS RELATIVE PERCENT (BEAKER) (test 2 % awae=366) BASOPHILS RELATIVE PERCENT (BEAKER) (test 0 % ytuj=970) NEUTROPHILS ABSOLUTE COUNT (BEAKER) (test 3.70 K/ L 1.80-8.00 ivxw=507) LYMPHOCYTES ABSOLUTE COUNT (BEAKER) (test 2.30 K/ L 1.48-4.50 zuqq=057) MONOCYTES ABSOLUTE COUNT (BEAKER) (test 0.40 K/ L 0.00-1.30 fxok=156) EOSINOPHILS ABSOLUTE COUNT (BEAKER) (test 0.20 K/ L 0.00-0.50 oxwp=730) BASOPHILS ABSOLUTE COUNT (BEAKER) (test 0.00 K/ L 0.00-0.20 xrsg=372) POCT-GLUCOSE [id number] 20:56:00 Test Item Value Reference Range Comments POC-GLUCOSE METER (BEAKER) 446 mg/dL 70-110 Notified KIRIT DALTON/TESTED AT [facility] (test iqgz=8168) [address] [facility] [id number]
--- NOTE | 2019-06-25 12:58 | RAD REPORT ---
EXAM DESCRIPTION: RAD - Chest Single View - 06/25/2019 12:53 pm CLINICAL HISTORY: back pain COMPARISON: April 2019 imaging TECHNIQUE: AP portable chest image was obtained 06/25/2019 12:53 pm . FINDINGS: No focal lung parenchymal process. Interstitial pattern is stable. Bilateral nipple shadow s again noted. Heart and vasculature are normal. No measurable pleural effusion and no pneumothorax. No acute bony abnormality seen. No acute aortic findings suspected. IMPRESSION: No acute cardiopulmonary process. No significant interval change.
[2019-06-25] MEDS ORDERED: FAMOTIDINE 20 MG/2 ML VIAL IV ONE (12:59)
[2019-06-25] MEDS ORDERED: ONDANSETRON 4 MG/2 ML VIAL ONE (12:59)
[2019-06-25] MEDS ORDERED: NA CHLORIDE 0.9% 500 ML ONE (12:59)
[2019-06-25 13:44] LABS: Absolute Lymphocytes (CBC) 2.1 K/uL (0.7-4.9); Basophils % 0.8 % (0-1.3); Hematocrit 34.4 % (36.0-45.0); Lymphocytes % 21.2 % (15.3-44.8); RBC Red Blood Cell Count 4.28 M/uL (3.86-4.86)
[2019-06-25 14:01] LABS: ALT/SGPT 17 U/L (12-78); AST/SGOT 10 U/L (15-37); Albumin 3.7 g/dL (3.4-5.0); Alkaline Phosphatase 157 U/L (45-117); BUN Blood Urea Nitrogen 19 mg/dL (7-18); Bicarbonate 26 mmol/L (21-32); Bilirubin Direct < 0.1 mg/dL (0-0.2); Bilirubin Total 0.4 mg/dL (0.2-1.0); Glucose Level 372 mg/dL (74-106); Lipase 171 U/L (73-393); Potassium 4.5 mmol/L (3.5-5.1); Protein, Total 8.4 g/dL (6.4-8.2); Sodium Level 134 mmol/L (136-145)
--- NOTE | 2019-06-25 14:25 | RAD REPORT ---
EXAM DESCRIPTION: CT - Abdomen Pelvis W Contrast - 06/25/2019 2:09 pm CLINICAL HISTORY: ABD PAIN, patient reports multi day history of right upper quadrant pain with prio r appendectomy, cholecystectomy and partial hysterectomy, prior COMPARISON: Abdomen Pelvis W Contrast dated 04/20/2019; Abdomen Pelvis W Contrast dated 03/24/2018 TECHNIQUE: Biphasic, helical CT imaging of the abdomen and pelvis was performed following 100 ml non -ionic IV contrast. No oral contrast administered. All CT scans are performed using dose optimization technique as appropriate and may include automated exposure control or mA/KV adjustment according to patient size. FINDINGS: No suspicious findings in the lung bases. Minimal scarring remnant seen from the April ight middle lobe pneumonia The liver, spleen, and pancreas show no suspicious findings. Gallbladder is absent. Biliary tree is m ildly prominent but not outside of normal range for post cholecystectomy status. Biliary tree size is similar to the April 20 comparison. Duct stones can be occult on CT imaging. Symmetric renal function is seen with no hydronephrosis or suspicious renal mass. No pyelonephritis o r acute parenchymal process. No bladder abnormalities. No adrenal abnormalities. Uterus is absent. Ov johann are not clearly defined being similar in density to adjacent bowel. No evidence for an ovarian mass. No dilated bowel loops or bowel wall thickening. Moderate stool volume fills the colon. No primary co hedy process. Appendix is absent by history. No significant small bowel process identifiable. No free air, free fluid or inflammatory stranding. No hernia, mass or bulky lymphadenopathy. No suspicious bony findings. IMPRESSION: Contrast-enhanced CT abdomen and pelvis imaging shows no acute finding. Gallbladder is absent. Biliary tree dilatation is not outside of normal range and is similar to the an study. Right middle lobe pneumonia findings seen April 20 have resolved.
--- NOTE | 2019-06-25 14:40 | EKG ---
Test Date: 2019-06-25 Test Time: 13:13:00 Genetic Coordinator: MATTHIAS MEASUREMENT RESULTS: Intervals: Rate: 98 OK: 152 QRSD: 70 QT: 380 QTc: 485 [place]: P: 81 OK: 152 QRS: 91 T: 76 INTERPRETIVE STATEMENTS: Normal sinus rhythm Rightward axis Prolonged QT Abnormal ECG Compared to ECG 03/24/2018 20:25:46 Right-axis deviation now present Prolonged QT interval now present Electronically Signed On 06-25-19 14:40:09 CDT by Rogerio Smith
[2019-06-25] MEDS ORDERED: INSULIN -REGULAR HUMAN 50 UNIT/0.5 ML ML ONE (15:12)
--- NOTE | 2019-06-25 15:27 | ER ---
Nurse's Notes [facility] Name: Melissa De Oliveira Age: 53 yrs Sex: Female : 1965 Arrival Date: 06/25/2019 Time: 12:03 Bed 6 Private MD: Diagnosis: Abdominal and pelvic pain Presentation: 06/24 12:30 Chief complaint: Patient states: Right upper and lower quadrant abd pain started jl7 Friday, worsening last night. Coronavirus screen: The patient has NOT traveled to a country currently being monitored by the CDC within the last 14 days. Proceed with normal triage procedures. The patient has NOT had contact with any known and/or suspected case of coronavirus. Proceed with normal triage procedures. Ebola Screen: No symptoms or risks identified at this time. Initial Sepsis Screen: Does the patient meet any 2 criteria? No. Patient's initial sepsis screen is negative. Does the patient have a suspected source of infection? No. Patient's initial sepsis screen is negative. Risk Assessment: Do you want to hurt yourself or someone else? Patient reports no desire to harm self or others. Onset of symptoms was June 23, 2019. 12:30 Method Of Arrival: Ambulatory jl7 12:30 Acuity: DEYA 3 jl7 Triage Assessment: 12:36 General: Appears in no apparent distress. uncomfortable, Behavior is calm, cooperative, jl7 appropriate for age. Pain: Complains of pain in right upper quadrant and right lower quadrant Pain radiates to right mid back Pain currently is 8 out of 10 on a pain scale. Is continuous. Neuro: Level of Consciousness is awake, alert, obeys commands, Oriented to person, place, time, situation. Cardiovascular: Patient's skin is warm and dry. Respiratory: Airway is patent Respiratory effort is even, unlabored, Respiratory pattern is regular, symmetrical. GI: Abdomen is round non-distended, Stools are reported to be normal. Last BM was June 24, 2019. Abdomen is tender to palpation in right upper quadrant, left upper quadrant and right lower quadrant Guarding noted. : No signs and/or symptoms were reported regarding the genitourinary system. Denies burning with urination, pain. Derm: Skin is pink, warm \T\ dry. 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 - Social history:: Smoking status: Patient denies any tobacco usage or history of. Screenin:30 Abuse screen: Denies threats or abuse. Denies injuries from another. Nutritional jl7 screening: No deficits noted. Tuberculosis screening: No symptoms or risk factors identified. Fall Risk IV access (20 points). Total Muniz Fall Scale indicates No Risk (0-24 pts). Assessment: 12:30 General: See triage assessment. jl7 13:30 Reassessment: Patient appears in no apparent distress at this time. Patient and/or 7 family updated on plan of care and expected duration. Pain level reassessed. Patient is alert, oriented x 3, equal unlabored respirations, skin warm/dry/pink. Patient states feeling better. 14:30 Reassessment: Patient appears in no apparent distress at this time. No changes from [facility] previously documented assessment. Patient and/or family updated on plan of care and expected duration. Pain level reassessed. Patient is alert, oriented x 3, equal unlabored respirations, skin warm/dry/pink. Vital Signs: 12:30 BP 136 / 83; Pulse 102; Resp 17; Temp 98.7; Pulse Ox 100% ; Weight 47.63 kg; Height 5 jl7 ft. 4 in. (162.56 cm); Pain 8/10; 14:37 BP 143 / 82; Pulse 98; Resp 18; Pulse Ox 100% ; sv 15:20 BP 132 / 80; Pulse 98; Resp 18; Pulse Ox 100% ; sv 12:30 Body Mass Index 18.02 (47.63 kg, 162.56 cm) 7 ED Course: 12:03 Patient arrived in ED. mr 12:17 Moisés Peña, RN is Primary Nurse. jl7 12:25 José Miguel Lacey [facility]-C [facility]. la1 12:25 Baron Brewer MD is Attending Physician. la1 12:30 Patient has correct armband on for positive identification. Placed in gown. Bed in low jl7 position. Call light in reach. Side rails up X 1. Pulse ox on. NIBP on. 12:35 Triage completed. jl7 12:36 Arm band placed on right wrist. jl7 12:50 Chest Single View XRAY In Process Unspecified. EDMS 13:15 Missed attempt(s): 22 gauge in left forearm. Bleeding controlled, band aid applied, jl7 catheter tip intact. 13:23 Missed attempt(s): 22 gauge in left antecubital area. Bleeding controlled, band aid dh3 applied, catheter tip intact. 13:26 Initial lab(s) drawn, by ms, sent to lab. Inserted saline lock: 22 gauge in right dh3 forearm, using aseptic technique. Blood collected. 14:17 CT Abd/Pelvis - IV Contrast Only In Process Unspecified. EDMS 15:43 No provider procedures requiring assistance completed. IV discontinued, intact, jl7 bleeding controlled, No redness/swelling at site. Pressure dressing applied. Administered Medications: 13:20 Drug: NS 0.9% 500 ml Route: IV; Rate: bolus; Site: right wrist; jl7 14:00 Follow up: Response: No adverse reaction; IV Status: Completed infusion; IV Intake: jl7 500ml 13:23 Drug: Pepcid 20 mg Route: IVP; Site: right wrist; jl7 15:30 Follow up: Response: No adverse reaction jl7 13:25 Drug: Zofran (Ondansetron) 4 mg Route: IVP; Site: right wrist; jl7 14:00 Follow up: Response: No adverse reaction; Nausea is decreased jl7 15:21 Not Given (Physician Discretion): Insulin Regular Human 10 units IVP once la1 15:29 Drug: morphine 2 mg Route: IVP; Site: right wrist; jl7 15:43 Follow up: Response: No adverse reaction; Pain is decreased jl7 Intake: 14:00 IV: 500ml; Total: 500ml. jl7 Outcome: 15:26 Discharge ordered by . la1 15:43 Discharged to home ambulatory. jl7 15:43 Condition: stable 15:43 Discharge instructions given to patient, Instructed on discharge instructions, follow up and referral plans. medication usage, Demonstrated understanding of instructions, follow-up care, medications, Prescriptions given X 2. 15:44 Patient left the ED. jl7 Signatures: Dispatcher [employer] EDMS Li Garzon, KIRIT CrumpSilvina cast, José Miguel, WAFER CUTTER-C [facility] Moisés Peña RN RN jl7 Tere Elam [facility]
--- NOTE | 2019-06-25 15:27 | EDPHYS ---
Physician Documentation [facility] Name: Melissa De Oliveira Age: 53 yrs Sex: Female : 1965 Arrival Date: 06/25/2019 Time: 12:03 Bed 6 Private MD: ED Physician Baron Brewer HPI: 06/24 12:58 This 53 yrs old Female presents to ER via Ambulatory with complaints of la1 Abdominal Pain, Back Pain. 12:58 The patient presents with abdominal pain in the lower abdomen. Onset: The la1 symptoms/episode began/occurred 2 day(s) ago. The symptoms do not radiate. The symptoms are described as sharp. Modifying factors: The symptoms are alleviated by nothing, the symptoms are aggravated by movement, pressure. Severity of pain: At its worst the pain was moderate. The patient has experienced similar episodes in the past. 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 - Social history:: Smoking status: Patient denies any tobacco usage or history of. ROS: 12:59 Constitutional: Negative for fever, chills, and weight loss, Eyes: Negative for injury, la1 pain, redness, and discharge, ENT: Negative for injury, pain, and discharge, Neck: Negative for injury, pain, and swelling, Cardiovascular: Negative for chest pain, palpitations, and edema, Respiratory: Negative for shortness of breath, cough, wheezing, and pleuritic chest pain. 12:59 Back: Negative for injury and pain, : Negative for injury, bleeding, discharge, and swelling, MS/Extremity: Negative for injury and deformity, Skin: Negative for injury, rash, and discoloration, Neuro: Negative for headache, weakness, numbness, tingling, and seizure. 12:59 Abdomen/GI: Positive for abdominal pain, nausea and vomiting. Exam: 12:59 Constitutional: This is a well developed, well nourished patient who is awake, alert, la1 and in no acute distress. Head/Face: Normocephalic, atraumatic. Eyes: Pupils equal round and reactive to light, extra-ocular motions intact. ENT: Mucous membranes moist. Neck: Trachea midline, Cardiovascular: Regular rate and rhythm with a normal S1 and S2. 12:59 Respiratory: Lungs have equal breath sounds bilaterally, clear to auscultation 12:59 Abdomen/GI: Inspection: abdomen appears normal, Bowel sounds: normal, in all quadrants, Palpation: soft, in all quadrants, mild abdominal tenderness, in the right lower quadrant and left lower quadrant, Indicators: McBurney's point is not tender, Hairston's sign is negative, Rovsing's sign is negative, Obturator sign is negative, Psoas sign is negative. 12:59 Back: CVA tenderness, is absent, vertebral tenderness, is not appreciated. Vital Signs: 12:30 BP 136 / 83; Pulse 102; Resp 17; Temp 98.7; Pulse Ox 100% ; Weight 47.63 kg; Height 5 jl7 ft. 4 in. (162.56 cm); Pain 8/10; 14:37 BP 143 / 82; Pulse 98; Resp 18; Pulse Ox 100% ; sv 15:20 BP 132 / 80; Pulse 98; Resp 18; Pulse Ox 100% ; sv 12:30 Body Mass Index 18.02 (47.63 kg, 162.56 cm) jl7 MDM: 12:28 Patient medically screened. la1 15:25 Data reviewed: vital signs, nurses notes, lab test result(s), and as a result, I will la1 discharge patient. Data interpreted: Pulse oximetry: on room air is 100 %. Interpretation: normal. Counseling: I had a detailed discussion with the patient and/or guardian regarding: the historical points, exam findings, and any diagnostic results supporting the discharge/admit diagnosis, lab results, radiology results, the need for outpatient follow up, a family practitioner, a supervisor tellers, to return to the emergency department if symptoms worsen or persist or if there are any questions or concerns that arise at home. Medication response: Zofran partially relieved the patient's nausea. Response to treatment: the patient's symptoms have mildly improved after treatment, and as a result, I will discharge patient. Special discussion: Based on the patient's Hx, exam, and Dx evaluation, there is no indication for emergent surgery or inpatient Tx. It is understood by the patient/guardian that if the Sx's persist or worsen they need to return immediately for re-evaluation. 06/24 12:37 Order name: Basic Metabolic Panel; Complete Time: 14:03 06/24 12:37 Order name: CBC with Diff; Complete Time: 14:06/24 12:37 Order name: Creatinine for Radiology; Complete Time: 14:06/24 12:37 Order name: Hepatic Function; Complete Time: 14:03 06/24 12:37 Order name: Lipase; Complete Time: 14:03 06/24 12:37 Order name: Chest Single View XRAY; Complete Time: 13:20 06/24 12:37 Order name: IV Saline Lock; Complete Time: 13:32 06/24 12:37 Order name: EKG; Complete Time: 12:38 06/24 13:20 Order name: CT Abd/Pelvis - IV Contrast Only; Complete Time: 14:39 06/24 12:37 Order name: Labs collected and sent; Complete Time: 13:32 06/24 12:37 Order name: EKG - Nurse/Tech; Complete Time: 13:37 la Administered Medications: 13:20 Drug: NS 0.9% 500 ml Route: IV; Rate: bolus; Site: right wrist; jl7 14:00 Follow up: Response: No adverse reaction; IV Status: Completed infusion; IV Intake: jl7 500ml 13:23 Drug: Pepcid 20 mg Route: IVP; Site: right wrist; jl7 15:30 Follow up: Response: No adverse reaction jl7 13:25 Drug: Zofran (Ondansetron) 4 mg Route: IVP; Site: right wrist; jl7 14:00 Follow up: Response: No adverse reaction; Nausea is decreased jl7 15:21 Not Given (Physician Discretion): Insulin Regular Human 10 units IVP once la1 15:29 Drug: morphine 2 mg Route: IVP; Site: right wrist; jl7 15:43 Follow up: Response: No adverse reaction; Pain is decreased jl7 Disposition: 18:04 Co-signature as Attending Physician, Baron Brewer MD I agree with the assessment and kdr plan of care. Disposition: 06/25/19 15:26 Discharged to Home. Impression: Abdominal and pelvic pain. - Condition is Stable. - Discharge Instructions: Abdominal Pain, Adult, Abdominal Pain, Adult, [id number]. - Prescriptions for Bentyl 20 mg Oral Tablet - take 1 tablet by ORAL route every 6 hours As needed; 20 tablet. Zofran 4 mg Oral Tablet - take 1 tablet by ORAL route every 12 hours As needed; 6 tablet. - Medication Reconciliation Form, Thank You Letter form. - Follow up: Private Physician; When: 2 - 3 days; Reason: Recheck today's complaints, Continuance of care, Re-evaluation by your physician. Follow up: Emergency Department; When: As needed; Reason: Worsening of condition. - Problem is new. - Symptoms have improved. Signatures: Dispatcher [employer] EDMO Baron Brewer MD MD kdr José Miguel Lacey, RADAR OPERATOR-C RADAR OPERATOR-Cla1 Moisés Peña RN RN jl7 Corrections: (The following items were deleted from the chart) 15:44 15:26 06/25/2019 15:26 Discharged to Home. Impression: Abdominal and pelvic pain. jl7 Condition is Stable. Forms are Medication Reconciliation Form, Thank You Letter, Antibiotic Education, Prescription Opioid Use. Follow up: Private Physician; When: 2 - 3 days; Reason: Recheck today's complaints, Continuance of care, Re-evaluation by your physician. Follow up: Emergency Department; When: As needed; Reason: Worsening of condition. Problem is new. Symptoms have improved. la1
[2019-06-25] MEDS ORDERED: MORPHINE 2 MG/ML SYR ONE (15:30)
[2019-06-25 16:08] VITALS: O2SAT 100
[2019-06-25 16:10] VITALS: TEMP 98.7
[2019-06-25 16:11] VITALS: BP 132/80
== END 2019-06-25 15:44 | disposition home or self-care (01) ==
LOC: ER 12:00
DX: R10.2 Pelvic and perineal pain (principal); E11.9 Type 2 diabetes mellitus without complications; Z79.4 Long term (current) use of insulin; Z88.5 Allergy status to narcotic agent; Z88.6 Allergy status to analgesic agent; Z88.8 Allergy status to other drugs, medicaments and biological substances
CPT/HCPCS: 36415; 71045; 74177; 80048; 80076; 82947; 83690; 85025; 93005; 96361; 96374; 96375; 99284; J2270; J2405; J7040; Q9967

== ENCOUNTER 2019-09-29 12:34 | Emergency (ER) | payer OTHER, SELFPAY ==
--- OUTSIDE RECORDS SUMMARY | 2019-09-29 12:37 | XMS REPORT | Clinical Summary ---
:1965 Author Organization [facility] Address [address] [place] [address] Care Team Providers Name Role Phone Denae [...] Not on file Results Not on fileafter 09/28/2018
--- OUTSIDE RECORDS SUMMARY | 2019-09-29 12:46 | XMS REPORT | Continuity of Care Document ---
:1965 Author Organization [facility] Catmoji Information [place] Care Team Providers Name Role Phone TeamPatent Unavailable Un available Problems Problem Status Onset Classification Date Comments Sourc e Date Reported Radiculopathy, 02/26/20 02/28/2017 [facility] cervical region 17 Hosp ital Hyperglycemia, 02/26/20 03/01/2017 [facility] unspecified 17 Hospital Fever, 02/26/20 03/01/2017 [facility] unspecified 17 Hospital Displaced 12/28/19 12/30/2016 [facility] unspecified 17 Hospital fracture of right lesser toe(s), initial encounter for closed fracture HURT TOES Active 12/28/[address] ABDOMINAL PAIN Active 02/07/20 [address] [place] EGD Active 02/05/20 [facility] 12 BLOOD SUGAR Active 11/28/19 [place] PROBLEM [place] LEFT LOWER Active 10/24/19 [place] ABDOMINAL PAIN 12 [place] ABDOMINAL PAIN Active 05/22/19 [facility] HIGH BLOOD SUGAR 12 [place] BLEEDING/ RT SIDE Active 05/07/19 [place] PAIN 12 [place] RIGHTABDOMINAL Active 04/19/19 [facility] PAIN . AND BLOOD 12 [place] IN URINE RIGHT ABDOMINAL Active 04/19/19 [facility] PAIN, BLOOD IN 12 [place] URINE LOWER ABD PAIN/ Active 03/25/20 [facility] HIGH SUGAR 11 [place] CHEST PAIN AND Active 02/11/20 [facility] TIGHTNESS 11 [place] CHEST PAIN, Active 02/11/20 [facility] [place] DIZZINESS,HYPERGL [address] YCEMIA, UTI CHEST PAIN Active 01/15/20 [facility] [place] [facility] [place] RIGHT KNEE 1ST 3 Active 12/23/19 [facility] [place] TOES NUMB 11 [place] FACIAL NECK Active 10/09/19 [facility] [place] CELLULITIS 11 [place] FACIAL AND NECK Active 10/08/19 [facility] PAIN 11 [place] SUGAR Active 07/22/19 [place] HIGH,VAGINAL 11 [place] BLEEDING ABD PAIN Active 01/06/20 [facility] 10 EAR PAIN Active 10/10/19 [facility] [place] UPPER ABDOMINAL Active 09/21/19 [facility] PAIN 10 [place] ABD PAIN, HIGH Active 08/16/19 [facility] SUGAR 10 [place] Abdominal pain Active Problem 02/19/2012 [facility], [place] Cellulitis Active Problem 02/19/2012 [facility], [place] Chest pain Active Problem 02/19/2012 [facility] [place] Hyperglycemia Active Problem 02/19/2012 [facility], [place] UTI - Urinary Active Problem 02/19/2012 tract infection [place] Diabetes mellitus Active Problem 03/01/2017 [facility] (disorder) [facility] Restless legs Active Problem 03/01/2017 [facility] (disorder) Hospital Abdominal pain Active Problem 03/01/2017 [facility] (finding) Hospital Chest pain Active Problem 03/01/2017 [facility] (finding) [facility] Hyperglycemia Active Problem 03/01/2017 [facility] (disorder) [facility] Urinary tract Active Problem 03/01/2017 [facility] infectious Hospital disease (disorder) CHEST PAIN NOS Active [place] [facility] [place] CELLULITIS NOS Active [facility] [place] Medications Medication Details Route Status Patient Ordering Order Source Instructions Provider Date GI cocktail Notes: G.I. No Longer Cocktail = Active 2016 [place] antacid with Hospital simethicone 22.5 mL - lidocaine viscous 7.5 mL Zofran Notes: (Same Inactive as: Zofran) 2016 [place] MEDICATION Hospital WASTE Product Size: 4 mg Product Wasted: ___ mg Zofran Notes: (Same Inactive as: Zofran) 2016 [place] MEDICATION Hospital WASTE Product Size: 4 mg Product Wasted: ___ mg Morphine Notes: (Same Inactive as:MORPhine 2017 [place] Sulfate) Hospital Lidocaine Notes: Inactive Hydrochloride 10 Preservative 2016 [facility] MG/ML Injectable free. (Same Ho spital Solution as: Xylocaine MPF) Insulin regular 60 units) Inactive WASTE: F/P - 2017 [place] Black; E - [facility] Trash Bin Stable for 28 days at room temperature Expires in days from Date Sodium Chloride 2,000 mL, 1000 Inactive 0.9% (Bolus) IV ml/hr, Infuse 2017 [facility] Over: 2 hr, Hospital Route: IV, 2,000, Drug form: INJ, ONCE, Priority: STAT, Dosing Weight 49.545 kg, Start date: 02/25/17 20:22:00 COTTON DISPATCHER, Stop date: 02/25/17 20:22:00 COTTON DISPATCHER ibuprofen 800 mg 800 mg = 1 Active oral tablet tab, PO, Q8H, 2017 [facility] PRN Pain, Take Hospital with food, X 5 day, # 15 tab, 0 Refill(s) Acetaminophen 300 1 - 2 tab, PO, Active MG / Codeine Q4H, PRN Pain, 2017 [facility] Phosphate 30 MG X 3 day, # 20 Ho spital Oral Tablet tab, 0 [Tylenol with Refill(s) Codeine #3] Cyclobenzaprine 5 mg = 1 tab, Active hydrochloride 5 PO, TID, X 7 2017 [facility] MG Oral Tablet day, # 21 tab, Ho spital [Flexeril] 0 Refill(s) Valium Notes: (Same No Longer as: Valium) Active 2016 [facility] Ketorolac 4 days No Longer MEDICATION Active 2016 [place] WASTE Hospital Product Size: 30 mg Product Wasted: ___ mg Ciprofloxacin 500 500 mg = 1 Active MH MG Oral Tablet tab, PO, Q12H, 2017 [facility] [Cipro] for UTI, X 3 Hospital day, # 6 tab, 0 Refill(s), Pharmacy: [facility]/pharmacy #[id number] Humalog 100 4 unit, SUB-Q, Active units/mL TID-Before 2017 [place] Meals, hold Hospital insulin injection if your blood sugar is less than 140 mg/dL., # 10 mL, 0 Refill(s), Pharmacy: [facility]/pharmacy #[id number] pantoprazole 40 40 mg = 1 tab, Active 01/26/ H [facility] Enteric Coated PO, Daily, # 2017 [facility] Tablet [Protonix] 30 tab, 0 Hosp ital Refill(s), Pharmacy: [facility]/pharmacy #[id number] Calcium Carbonate 500 mg = 1 Active 500 MG Chewable tab, PO, TID, 2017 [facility] Tablet # 6 tab, 0 Hospital Refill(s), Pharmacy: [facility]/pharmacy #[id number] Insulin Glargine 15 unit, Active 100 UNT/ML SUB-Q, Daily, 2016 [place] Injectable # 10 mL, 0 Hospital Solution [Lantus] Refill(s), Pharmacy: [facility]/pharmacy #[id number] Calcium Gluconate Notes: WASTE: Inactive F/P - Sink; E 2016 [place] - [facility] Trash Bin Calcium Carbonate Notes: (Same Inactive As: [facility], [facility]1983[facility]) 2017 [place] Calcium Hospital Carbonate 500 mg = 200 mg elemental calcium Dose = mg calcium carbonate ( mg elemental calcium) Insulin Glargine Notes: Same as No Longer 100 UNT/ML Lantus Active 2016 [place] Injectable Solostar PEN Hospital Solution [Lantus] Do not hold insulin without contacting prescriber "single patient use only" WASTE: F/P - Black; E - Municipal Trash Bin Stable for 28 days at room temperature. Expires in days from Date Requip Notes: (Same No Longer as: Requip) Active 2017 [place] [facility] Lyrica Notes: (Same No Longer as: Lyrica) Active 2017 [facility] Calcium Carbonate Notes: (Same Inactive As: Tums) 2017 [place] Calcium Hospital Carbonate 500 mg = 200 mg elemental calcium Dose = mg calcium carbonate ( mg elemental calcium) Protonix Notes: Tablet No Longer should not be Active 2017 [place] chewed or Hospital crushed. (Same as: Protonix) Magnesium Oxide Notes: (Same No Longer H as: Mag-Ox Active 2017 [place] 400) Magnesium Hospital oxide [id number] elemental magnesium Dose=____mg magnesium oxide (___mg elemental magnesium) Ketorolac 4 days No Longer MEDICATION Active 2017 [place] WASTE Hospital Product Size: 30 mg Product Wasted: ___ mg Docusate Notes: (Same No Longer as: Colace) Active 2016 [place] (Do Not Crush) [facility] Insulin Glargine 50 units, No Longer 100 UNT/ML SUB-Q, Daily, Active 2016 [place] Injectable 0 Refill(s) [facility] Solution [Lantus] ropinirole 2 MG 2 mg = 1 tab, Active Oral Tablet PO, Bedtime, 0 2016 [facility] [Requip] Refill(s) [facility] pregabalin 75 MG 75 mg = 1 cap, Active Oral Capsule PO, Bedtime, 0 2016 [facility] [Lyrica] Refill(s) [facility] Insulin Lispro 60 units) Inactive WASTE: F/P - 2017 [place] Black; E - [facility] Municipal Trash Bin Stable for 28 days at room temperature. Expires in days from Date Ceftriaxone Notes: (Same No Longer As: Rocephin). Active 2017 [place] Use with 100 Hospital mL NS and infuse over 30 min MEDICATION WASTE Product Size: 1000 mg Product Wasted: ___ mg Hydralazine Notes: (Same No Longer as: Active 2016 [place] Apresoline) [facility] Push over 5 minutes Glucagon 1 mg, Route: No Longer IM, Drug form: Active 2016 [place] PDR/INJ, PRN, Hospital Dosing Weight 51.449, kg, PRN Blood Glucose Results, Start date: 01/25/17 1:35:00 CDT, Duration: 30 day, Stop date: 02/24/17 0:34:00 COTTON DISPATCHER Insulin Lispro 60 units) No Longer WASTE: F/P - Active 2016 [place] Black; E - [facility] Municipal Trash Bin Stable for 28 days at room temperature. Expires in days from Date Dextrose 50% 25 gm, 50 mL, No Longer Syringe Route: IVP, Active 2016 [place] Drug Form: Hospital INJ, Dosing Weight 51.449, kg, PRN, PRN Blood Glucose Results, Start date: 01/25/17 1:35:00 CDT, Duration: 30 day, Stop date: 02/24/17 0:34:00 COTTON DISPATCHER Acetaminophen Notes: Do not No Longer exceed 4 Active 2017 [place] gm/day. (Same Hospital as: Tylenol) Acetaminophen 325 Notes: (Same Inactive MG / Hydrocodone as: [place] 2017 [facility] Bitartrate 5 MG 325/5) Do not H ospital Oral Tablet exceed 4gm/day of acetaminophen. Ondansetron Notes: (Same No Longer as: Zofran) Active 2017 [place] MEDICATION Hospital WASTE Product Size: 4 mg Product Wasted: ___ mg sodium chloride 1,000 mL, No Longer 0.9% 1000 ml INJ Rate: 75 Active 2017 [facility] 1,000 mL ml/hr, Infuse Hospital over: 13.3 hr, Route: IV, Dosing Weight 51.449 kg, Total Volume: 1,000, Start date: 01/25/17 1:32:00 CDT, Stop date: 02/24/17 1:31:00 COTTON DISPATCHER Saline Flush 0.9% Notes: (Same No Longer as: BD Active 2016 [place] Posiflush) Hospital Ketorolac 15 mg, Route: Inactive IV, ONCE, 2016 [place] Dosing Weight Hospital 52.273, kg, Start date: 01/25/17 0:00:00 CDT, Stop date: 01/25/17 0:00:00 CDT Famotidine 20 mg, Route: Inactive IVP, ONCE, 2017 [place] Dosing Weight Hospital 52.273, kg, Priority: STAT, Start date: 01/25/17 0:00:00 CDT, Stop date: 01/25/17 0:00:00 CDT Sodium Chloride 3,000 mL, 3000 Inactive 0.9% (Bolus) IV ml/hr, Infuse 2017 [facility] Over: 1 hr, Hospital Route: IV, 3,000, Drug form: INJ, ONCE, Priority: STAT, Dosing Weight 52.273 kg, Start date: 01/24/17 22:15:00 CDT, Duration: 1 doses or times, Stop date: 01/24/17 22:15:00 CDT Sodium Chloride 500 mL, 500 Inactive 0.9% (Bolus) IV ml/hr, Infuse 2017 [facility] Over: 1 hr, Hospital Route: IV, 500, Drug form: INJ, ONCE, Priority: STAT, Dosing Weight 52.273 kg, Start date: 01/24/17 22:09:00 CDT, Duration: 1 doses or times, Stop date: 01/24/17 22:09:00 CDT Zofran 4 mg, Route: Inactive IVP, Drug 2017 [place] form: INJ, Hospital ONCE, Dosing Weight 52.273, kg, Priority: STAT, Start date: 01/24/17 22:07:00 CDT, Stop date: 01/24/17 22:07:00 CDT Morphine Notes: (Same Inactive as:MORPhine 2017 [place] Sulfate) Hospital Acetaminophen 300 1 - 2 tab, PO, No Longer 12/27 MG / Codeine Q4H, PRN Pain, Active 2016 [facility] Phosphate 30 MG X 2 day, # 30 Ho spital Oral Tablet tab, 0 [Tylenol with Refill(s) Codeine #3] Acetaminophen 325 Notes: (Same Inactive MG / Hydrocodone as: [place] 2016 [facility] Bitartrate 5 MG 325/5) Do not H ospital Oral Tablet exceed 4gm/day [[place] 5/325] of acetaminophen. Sodium Chloride 500 mL, Rate: IV No Longer [facility] Sugar 0.9% (Bolus) IV 500 ml/hr, Active 2011 [facility] 500 mL Infuse over: 1 hr, Route: IV, Dosing Weight 50 kg, Total Volume: 500, Bolus Dose, Priority: STAT, Start date: 11/28/11 22:47:00, Duration: 1 doses or times, Stop date: 11/28/11 23:46:00 NovoLog Substitution Active [place] Allowed 2011 Insulin regular 7 unit, Route: IVP No Longer [place] IVP, ONCE, Active 2011 Dosing Weight 50, kg, Priority: STAT, Start date: 11/28/11 21:51:00, Stop date: 11/28/11 21:51:00 ketorolac 30 mg, Route: IVP No Longer [facility] Sug ar IVP, Drug Active 2011 [place] form: INJ, ONCE, Dosing Weight 50, kg, Priority: STAT, Start date: 11/28/11 21:51:00, Stop date: 11/28/11 21:51:00 ondansetron 4 mg, Route: IVP No Longer [facility] gar IVP, ONCE, Active 2011 [facility] Dosing Weight 50, kg, Priority: STAT, Start date: 11/28/11 21:51:00, Stop date: 11/28/11 21:51:00 Sodium Chloride 1,000 mL, IVPB No Longer [facility] S ugar 0.9% (Bolus) IV Rate: 1,000 Active 2011 [facility] 1,000 mL ml/hr, Infuse over: 1 hr, Route: IVPB, kg, Total Volume: 1,000, Bolus Dose, Priority: STAT, Start date: 11/28/11 21:51:00, Duration: 1 doses or times, Stop date: 11/28/11 22:50:00 Saline Flush 0.9% 5 ml, Route: IVP No Longer [facility] Sugar IVP, Drug Active 2011 [place] Form: INJ, kg, PRN, PRN Line Flush, Start date: 11/28/11 21:51:00, Duration: 30 day, Stop date: 12/28/11 21:50:00 [place] 5/325 oral 1-2 tab, PO, PO Active [facility] Sugar tablet Q4-6H, PRN, 2011 tab, Pain, Substitution Allowed, Soft Stop Zofran ODT 4 mg 4 mg, 1 tab, PO Active [facility] Sugar oral tablet, PO, TID, PRN, 2011 disintegrating 10 tab, Nausea and Vomiting, Substitution Allowed morphine Sulfate 4 mg, 2 mL, IVP No Longer [facility] Route: IVP, Active 2011 [facility] Drug form: INJ, ONCE, Priority: STAT, Start date: 10/25/11 0:22:00, Stop date: 10/25/11 0:22:00 diphenhydrAMINE 25 mg, Route: IVP No Longer [place] IVP, ONCE, Active 2011 Priority: STAT, Start date: 10/25/11 0:06:00, Stop date: 10/25/11 0:06:00 morphine Sulfate 4 mg, 2 mL, IVP No Longer [place] 10/24/ M H [place] Route: IVP, Active 2011 [facility] Drug form: INJ, ONCE, Priority: STAT, Start date: 10/24/11 22:06:00, Stop date: 10/24/11 22:06:00 Sodium Chloride 1,000 mL, IVPB No Longer [place] S ugar 0.9% (Bolus) IV Rate: 1,000 Active 2011 1,000 mL ml/hr, Infuse over: 1 hr, Route: IVPB, Dosing Weight 54.545 kg, Total Volume: 1,000, Bolus Dose, Priority: STAT, Start date: 10/24/11 22:06:00, Duration: 1 doses or times, Stop date: 10/24/11 23:05:00 Saline Flush 0.9% 5 ml, Route: IVP No Longer [place] IVP, Drug Active 2011 [facility] Form: INJ, PRN, PRN Line Flush, Start date: 10/24/11 22:06:00, Duration: 30 day, Stop date: 11/23/11 22:05:00 ondansetron 4 mg, 2 mL, IVP No Longer [place] ar Route: IVP, Active 2011 Drug form: INJ, ONCE, Priority: STAT, Start date: 10/24/11 22:06:00, Stop date: 10/24/11 22:06:00 Insulin regular 5 unit, 0.05 IV No Longer [facility] mL, Route: IV, Active 2011 Drug form: SOLN, ONCE, Priority: STAT, Start date: 10/24/11 22:06:00, Stop date: 10/24/11 22:06:00 morphine Sulfate 2 mg, Route: IVP No Longer [place] IVP, ONCE, Active 2011 Start date: 05/23/11 1:52:00, Stop date: 05/23/11 1:52:00 Insulin regular 5 unit, 0.05 IVP No Longer [facility] Sugar mL, Route: Active 2011 [facility] IVP, Drug form: SOLN, ONCE, Priority: STAT, Start date: 05/23/11 1:10:00, Stop date: 05/23/11 1:10:00 Visipaque 32,000 mg, 100 IV Active [facility] Suga r mL, Route: IV, 2011 [facility] Drug form: INJ, ONCE, Start date: 05/22/11 23:47:00, Stop date: 05/22/11 23:47:00 Insulin regular 5 unit, 0.05 SUB-Q No Longer [facility] Sugar mL, Route: Active 2011 [facility] SUB-Q, Drug form: SOLN, ONCE, Priority: STAT, Start date: 05/22/11 23:36:00, Stop date: 05/22/11 23:36:00 morphine Sulfate 2 mg, 0.4 mL, IVP No Longer [facility] Sugar Route: IVP, Active 2011 [facility] Drug form: INJ, ONCE, Priority: STAT, Start date: 05/22/11 23:04:00, Stop date: 05/22/11 23:04:00 ondansetron 4 mg, 2 mL, IVP No Longer [facility] Sug ar Route: IVP, Active 2011 [facility] Drug form: INJ, ONCE, Priority: STAT, Start date: 05/22/11 23:04:00, Stop date: 05/22/11 23:04:00 Sodium Chloride 500 mL, Rate: IV No Longer [facility] Sugar 0.9% (Bolus) IV 1,000 ml/hr, Active 2011 [facility] 500 mL Infuse over: 0.5 hr, Route: IV, Total Volume: 500, Bolus dose, Priority: STAT, Start date: 05/22/11 23:04:00, Duration: 1 doses or times, Stop date: 05/22/11 23:33:00 Saline Flush 0.9% 5 ml, Route: IVP No Longer [facility] Sugar IVP, Drug Active 2011 [facility] Form: INJ, PRN, PRN Line Flush, Start date: 05/22/11 23:04:00, Duration: 24 hr, Stop date: 05/23/11 23:03:00 Pyridium 200 mg 200 mg, 1 tab, PO Active [facility] H Sugar oral tablet PO, TID, 9 2011 [facility] tab, Substitution Allowed Cipro 500 mg oral 500 mg, 1 tab, PO Active [facility] Sugar tablet PO, Q12H, 28 2011 [facility] tab, Substitution Allowed, TAB Pyridium 200 mg, 2 tab, PO No Longer [facility] Sug ar Route: PO, Active 2011 [facility] Drug form: TAB, ONCE, Priority: STAT, Start date: 05/07/11 20:03:00, Stop date: 05/07/11 20:03:00 Cipro 500 mg, 2 tab, PO No Longer [facility] [place] [facility] Route: PO, Active 2011 [facility] Drug form: TAB, ONCE, Priority: STAT, Start date: 05/07/11 20:03:00, Stop date: 05/07/11 20:03:00 Cipro 500 mg oral 500 mg, 1 tab, PO Active [facility] Sugar tablet PO, BID, 20 2011 [facility] tab, Substitution Allowed Zofran ODT 4 mg 4 mg, 1 tab, PO Active [facility] oral tablet, PO, TID, PRN, 2011 disintegrating 10 tab, Nausea and Vomiting, Substitution Allowed [place] 10/325 oral 1 tab, PO, PO Active [facility] Sugar tablet Q4-6H, PRN, 24 2011 [facility] tab, as needed for pain, Substitution Allowed, Maintenance hydromorphone 1 mg, 0.5 mL, IVP No Longer [place] Route: IVP, Active 2011 [facility] Drug form: INJ, ONCE, Priority: STAT, Start date: 04/19/11 23:38:00, Stop date: 04/19/11 23:38:00 Insulin regular 10 unit, 0.1 IVP No Longer [facility] mL, Route: Active 2011 [facility] IVP, Drug form: SOLN, ONCE, Priority: STAT, Start date: 04/19/11 23:31:00, Stop date: 04/19/11 23:31:00 Sodium Chloride 1,000 mL, IV No Longer [facility] [facility] ugar 0.9% (Bolus) IV Rate: 1,000 Active 2011 [place] 1,000 mL ml/hr, Infuse over: 1 hr, Route: IV, Total Volume: 1,000, [place] Dose, Priority: STAT, Start date: 04/19/11 21:30:00, Duration: 1 doses or times, Stop date: 04/19/11 22:29:00 Saline Flush 0.9% 5 ml, Route: IVP No Longer [place] IVP, Drug Active 2011 [place] Form: INJ, PRN, PRN Line Flush, Start date: 04/19/11 21:30:00, Duration: 30 day, Stop date: 05/19/11 21:29:00 ondansetron 4 mg, Route: IVP No Longer [place] [facility] gar IVP, ONCE, Active 2011 [place] Priority: STAT, Start date: 04/19/11 21:30:00, Stop date: 04/19/11 21:30:00 ketorolac 30 mg, Route: IVP No Longer [place] Sug ar IVP, ONCE, Active 2011 [place] Priority: STAT, Start date: 04/19/11 21:30:00, Stop date: 04/19/11 21:30:00 hydromorphone 1 mg, Route: IVP No Longer [place] IVP, ONCE, Active 2011 [place] Priority: STAT, Start date: 04/19/11 21:30:00, Stop date: 04/19/11 21:30:00 magnesium citrate 150 ml, PO, PO Active [place] 03/26[facility] Sugar 8.85% oral liquid ONCE, 300 ml, 2010 [place] Substitution Allowed, Maintenance, LIQ MiraLax oral 17 gm, PO, PO Active [place] 03/26[facility] Sugar powder for Daily, 255 gm, 2010 [place] reconstitution Substitution Allowed, PDR/REC Phenergan 25 mg 25 mg, 1 tab, PO Active [place] Sugar oral tablet PO, Q6H, PRN, 2010 [place] 15 tab, Nausea, Substitution Allowed Vicodin 5/500 1 tab, PO, PO Active [place] Suga r oral tablet Q4-6H, PRN, 2010 tab, for Pain, Substitution Allowed, Maintenance Sodium Chloride 1,000 mL, IV No Longer [place] S ugar 0.9% (Bolus) IV Rate: 1,000 Active 2010 1,000 mL ml/hr, Infuse over: 1 hr, Route: IV, Total Volume: 1,000, [place] Dose, Priority: STAT, Start date: 03/25/11 21:24:00, Duration: 1 doses or times, Stop date: 03/25/11 22:23:00 Insulin regular 10 unit, 0.1 IVP No Longer [place] 03/26/ H [facility] mL, Route: Active 2010 IVP, Drug form: SOLN, ONCE, Priority: STAT, Start date: 03/25/11 21:16:00, Stop date: 03/25/11 21:16:00 Omnipaque 300 30,000 mg, 100 IV Active [place] Sugar mL, Route: IV, 2010 Drug form: SOLN, ONCE, Start date: 03/25/11 21:15:00, Stop date: 03/25/11 21:15:00 Saline Flush 0.9% 5 ml, Route: IVP No Longer [place] Sugar IVP, Drug Active 2010 Form: INJ, PRN, PRN Line Flush, Start date: 03/25/11 20:19:00, Duration: 30 day, Stop date: 04/24/11 20:18:00 ondansetron 4 mg, 2 mL, IVP No Longer [place] Sug ar Route: IVP, Active 2010 Drug form: INJ, ONCE, Priority: STAT, Start date: 03/25/11 20:19:00, Stop date: 03/25/11 20:19:00 morphine Sulfate 4 mg, 0.8 mL, IVP No Longer [place] Route: IVP, Active 2010 Drug form: INJ, ONCE, Priority: STAT, Start date: 03/25/11 20:19:00, Stop date: 03/25/11 20:19:00 nitroglycerin 0.4 0.4 mg, 1 tab, SL No Longer 02/11 [place] mg sublingual SL, Q5Min, Active 2010 tablet PRN, as needed for chest pain, Substitution Allowed aspirin 81 mg 1 tab, PO, PO Active [place] tablet, chewable Daily, tab, 2010 [place] Substitution Allowed, CHEWTAB Cipro 250 mg, 1 tab, PO No Longer [place] Route: PO, Active 2010 [facility] Drug form: TAB, [id number], Start date: 02/11/11 11:00:00, Duration: 30 day, Stop date: 03/12/11 23:00:00 magnesium oxide 400 mg, 1 tab, PO No Longer [place] Route: PO, Active 2010 [facility] Drug form: TAB, Daily, Start date: 02/11/11 9:00:00, Duration: 30 day, Stop date: 03/12/11 9:00:00 Lantus 70 unit, SUB-Q No Longer [place] Route: SUB-Q, Active 2010 [facility] Drug form: SOLN, Daily, Start date: 02/11/11 9:00:00, Duration: 30 day, Stop date: 03/12/11 9:00:00 Levemir FlexPen 70 unit, 0.7 SUB-Q No Longer [place] [facility] mL, Route: Active 2010 SUB-Q, Drug form: INJ, Daily, Start date: 02/11/11 9:00:00, Duration: 30 day, Stop date: 03/12/11 9:00:00 Saline Flush 0.9% 5 ml, Route: IVP No Longer [place] IVP, Drug Active 2010 [facility] Form: INJ, Q12H, Start date: 02/11/11 9:00:00, Duration: 30 day, Stop date: 03/12/11 21:00:00 nitroglycerin 2% 0.5 inch, TOP No Longer [place] [facility] ointment Route: TOP, Active 2010 Drug Form: OINT, TID, Start date: 02/11/11 9:00:00, Duration: 30 day, Stop date: 03/12/11 17:00:00 metoprolol 25 mg, 1 tab, PO No Longer [place] [facility] gar tartrate Route: PO, Active 2010 Drug form: TAB, BID, Start date: 02/11/11 9:00:00, Duration: 30 day, Stop date: 03/12/11 17:00:00 Yesy 180 mg 180 mg, 1 tab, PO Active [place] oral tablet PO, Daily, 2010 tab, Substitution Allowed, TAB Cipro 500 mg oral 500 mg, 1 tab, PO Active [place] [facility] tablet PO, BID, 2010 tab, Substitution Allowed Cipro 250 mg, 1 tab, PO No Longer [place] Route: PO, Active 2010 Drug form: TAB, [id number], Start date: 02/11/11 3:00:00, Duration: 30 day, Stop date: 03/12/11 15:00:00 acetaminophen-hyd 1 tab, Route: PO No Longer [place] rocodone PO, Drug Form: Active 2010 TAB, Q4H, PRN Pain Score 1-5, Start date: 02/11/11 2:25:00, Duration: 30 day, Stop date: 03/13/11 2:24:00 BD Posiflush SF 15 mL, Route: IVP No Longer [place] IVP, Drug Active 2010 Form: INJ, PRN, PRN Line Flush, Start date: 02/11/11 2:22:00, Duration: 30 day, Stop date: 03/13/11 1:21:00 loratadine 10 mg, 1 tab, PO No Longer [place] [facility] gar Route: PO, Active 2010 Drug form: TAB, Daily, PRN Allergic reaction, Priority: NOW, Start date: 02/11/11 2:05:00, Duration: 30 day, Stop date: 03/13/11 2:04:00 Antivert 25 mg, 1 tab, PO No Longer [place] Route: PO, Active 2010 Drug form: TAB, TID, PRN Dizziness, Start date: 02/11/11 2:05:00, Duration: 30 day, Stop date: 03/13/11 2:04:00 Flexeril 10 mg, 1 tab, PO No Longer [place] Route: PO, Active 2010 Drug form: TAB, TID, PRN Spasm, Start date: 02/11/11 2:05:00, Duration: 30 day, Stop date: 03/13/11 2:04:00 Insulin (Novolog) 6 unit, 0.06 SUB-Q No Longer [place] Sliding Scale - mL, Route: Active 2010 [facility] Low SUB-Q, Drug form: SOLN, Sliding Scale, PRN Blood Glucose Results, Start date: 02/11/11 2:05:00, Duration: 30 day, Stop date: 03/13/11 1:04:00 glucagon 1 mg, Route: IM No Longer [facility] Sugar IM, Drug form: Active 2010 [facility] PDR/INJ, PRN, PRN Blood Glucose Results, Start date: 02/11/11 2:05:00, Duration: 30 day, Stop date: 03/13/11 1:04:00 Dextrose 50% 25 gm, 50 ml, IVP No Longer [facility] Sugar Syringe Route: IVP, Active 2010 [facility] Drug Form: INJ, PRN, PRN Blood Glucose Results, Start date: 02/11/11 2:05:00, Duration: 30 day, Stop date: 03/13/11 1:04:00 Saline Flush 0.9% 5 ml, Route: IVP No Longer [facility] Sugar IVP, Drug Active 2010 [facility] Form: INJ, PRN, PRN Line Flush, Start date: 02/11/11 2:05:00, Duration: 30 day, Stop date: 03/13/11 1:04:00 nitroglycerin SL 0.4 mg, 1 tab, SL No Longer [facility] Sugar Tab Route: SL, Active 2010 [facility] Drug form: TAB, Q5Min, PRN Chest Pain, Start date: 02/11/11 2:05:00, Duration: 3 doses or times, Stop date: Limited # of times morphine Sulfate 2 mg, 0.4 mL, IVP No Longer [facility] Sugar Route: IVP, Active 2010 [facility] Drug form: INJ, Q15Min, PRN Chest Pain, Start date: 02/11/11 2:05:00, Duration: 2 doses or times, Stop date: Limited # of times acetaminophen 650 mg, 2 tab, PO No Longer Bridges H Sugar Route: PO, Active 2010 [facility] Drug form: TAB, Q4H, PRN Headache, Start date: 02/11/11 2:05:00, Duration: 30 day, Stop date: 03/13/11 2:04:00 diphenhydrAMINE 25 mg, 1 tab, PO No Longer [facility] Sugar Route: PO, Active 2010 [facility] Drug form: TAB, Bedtime, PRN Insomnia, Start date: 02/11/11 2:05:00, Duration: 30 day, Stop date: 03/13/11 2:04:00 acetaminophen-hyd 1 tab, Route: PO No Longer [facility] Sugar rocodone 325 mg-5 PO, Q4H, PRN Active 2010 L and mg oral tablet Pain Score 1-5, Start date: 02/11/11 2:05:00, Duration: 30 day, Stop date: 03/13/11 2:04:00 ondansetron 4 mg, 1 tab, PO No Longer Bridges Hein gar Route: PO, Active 2010 [facility] Drug form: TAB, Q8H, PRN Nausea & Vomiting, Start date: 02/11/11 2:05:00, Duration: 30 day, Stop date: 03/13/11 2:04:00 temazepam 15 mg, 1 cap, PO No Longer [facility] Sug ar Route: PO, Active 2010 [facility] Drug form: CAP, Bedtime, PRN Insomnia, Start date: 02/11/11 2:05:00, Duration: 30 day, Stop date: 03/13/11 2:04:00 aspirin 325 mg 325 mg, 1 tab, PO No Longer [facility] Sugar tablet Route: PO, Active 2010 [facility] Drug form: TAB, ONCE, Start date: 02/11/11 2:05:00, Stop date: 02/11/11 2:05:00 morphine Sulfate 2 mg, 0.4 mL, IVP No Longer Rowan 02/11 Sugar Route: IVP, Active 2010 [facility] Drug form: INJ, ONCE, Priority: STAT, Start date: 02/11/11 0:37:00, Stop date: 02/11/11 0:37:00 Visipaque 48,000 mg, 150 IV No Longer Rowan Sugar mL, Route: IV, Active 2010 [facility] Drug form: INJ, ONCE, Start date: 02/10/11 23:55:00, Stop date: 02/10/11 23:55:00 Zofran 4 mg, 2 mL, IVP No Longer Rowan Sugar Route: IVP, 2010 Drug form: INJ, ONCE, Start date: 02/10/11 23:28:00, Stop date: 02/10/11 23:28:00 Cipro 400 mg, Route: IVPB No Longer Rowan Hein gar IVPB, ONCE, Active 2010 Priority: STAT, Start date: 02/10/11 23:08:00, Stop date: 02/10/11 23:08:00 Insulin regular 10 unit, SUB-Q No Longer Rowan Sugar Route: SUB-Q, Active 2010 ONCE, Priority: STAT, Start date: 02/10/11 22:56:00, Stop date: 02/10/11 22:56:00 Sodium Chloride 1,000 mL, IV No Longer Rowan Sugar 0.9% (Bolus) IV Rate: 1,000 2010 1000 mL ml/hr, Infuse over: 1 hr, Route: IV, Total Volume: 1,000, Bolus Dose, Priority: STAT, Start date: 02/10/11 22:55:00, Duration: 1 doses or times, Stop date: 02/10/11 23:54:00 BD Posiflush SF 15 mL, Route: IVP No Longer Rowan Sugar IVP, Drug Active 2010 Form: INJ, PRN, PRN Line Flush, Start date: 02/10/11 21:55:00, Duration: 30 day, Stop date: 03/12/11 20:54:00 aspirin 325 mg 325 mg, Route: PO No Longer Rowan Sugar tablet PO, Drug form: Active 2010 TAB, ONCE, Priority: STAT, Start date: 02/10/11 21:47:00, Stop date: 02/10/11 21:47:00 metoprolol 50 mg, Route: PO No Longer Rowan Sugar tartrate PO, Drug form: Active 2010 TAB, ONCE, (Hold if SBP < = 90 mmHg or if < = 100mmHg with symptomatic dizziness, or if HR < = 55), Start date: 02/10/11 21:47:00, Stop date: 02/10/11 21:47:00 nitroglycerin 2% 0.5 inch, TOP No Longer Rowan H Sugar ointment Route: TOP, Active 2010 [facility] Drug Form: OINT, ONCE, STAT, Start date: 02/10/11 21:47:00, Stop date: 02/10/11 21:47:00 nitroglycerin 0.4 mg, 1 tab, SL No Longer Rowan Sugar Route: SL, Active 2010 [facility] Drug form: TAB, Q5Min, PRN Chest Pain, (Hold if SBP < = 90 mmHg or if < = 100mmHg with symptomatic dizziness), Start date: 02/10/11 21:47:00, Duration: 3 doses or times, Stop date: Limited # of times morphine Sulfate 2 mg, Route: IVP No Longer Rowan Sugar IVP, ONCE, Active 2010 [facility] Priority: STAT, Start date: 02/10/11 21:47:00, Stop date: 02/10/11 21:47:00 Saline Flush 0.9% 5 ml, Route: IVP No Longer Rowan 02/11 Sugar IVP, PRN, PRN Active 2010 [facility] Line Flush, Start date: 02/10/11 21:47:00, Duration: 30 day, Stop date: 03/12/11 20:46:00 aspirin 325 mg 325 mg, 1 tab, PO No Longer Grace Sugar tablet, enteric Route: PO, Active 2010 [facility] coated Drug form: ECTAB, Daily, Start date: 01/16/11 9:00:00, Duration: 30 day, Stop date: 02/14/11 9:00:00 Requip 1 mg, 1 tab, PO No Longer [place] Sugar Route: PO, Active 2010 [facility] Drug form: TAB, Bedtime, Start date: 01/15/11 21:00:00, Duration: 30 day, Stop date: 02/13/11 21:00:00 Nitrostat 0.4 mg 1 tab, SL, SL Active [facility] S ugar sublingual tablet Q5Min, PRN, [address] [place] tab, Chest Pain, Substitution Allowed metoprolol 25 mg 12.5 mg, PO, PO Active [facility] Sugar oral tablet Q12H, 30 tab, 2010 Substitution Allowed, TAB aspirin 325 mg 9,750 mg, 30 PO Active [facility] S ugar tablet, enteric tab, PO, 2010 coated Daily, 30 tab, Substitution Allowed, ECTAB metoprolol 12.5 mg, 0.5 PO No Longer Edwards Sug ar tab, Route: Active 2010 PO, Drug form: TAB, Q12H, Priority: NOW, Start date: 01/15/11 10:36:00, Duration: 30 day, Stop date: 02/14/11 9:00:00 Fioricet oral 1 tab, PO, PO Active [facility] 01/15[facility] Suga r tablet Q4H, PRN, 2010 tab, Headache, Substitution Allowed, Maintenance, TAB Fioricet 1 tab, Route: PO No Longer Consuelo 01/15[facility] Suga r PO, Drug Form: Active 2010 TAB, Q4H, PRN Headache, Start date: 01/15/11 9:15:00, Duration: 30 day, Stop date: 02/14/11 9:14:00 aspirin 81 mg 81 mg, 1 tab, PO No Longer [facility] Sugar tablet, enteric Route: PO, Active 2010 coated Drug form: ECTAB, Daily, Start date: 01/15/11 9:00:00, Duration: 30 day, Stop date: 02/13/11 9:00:00 Requip 1 mg oral 1 mg, 1 tab, PO Active Sugar tablet PO, Bedtime, 2010 Substitution Allowed ibuprofen 400 mg 400 mg, 1 tab, PO No Longer [facility] 01/15[facility] Sugar oral tablet Route: PO, Active 2010 Drug form: TAB, Q8H, Start date: 01/15/11 0:00:00, Duration: 30 day, Stop date: 02/13/11 16:00:00 Saline Flush 0.9% 5 ml, Route: IVP No Longer [facility] 01/15[facility] Sugar IVP, Drug Active 2010 Form: INJ, Q12H, Start date: 01/14/11 21:00:00, Duration: 30 day, Stop date: 02/13/11 9:00:00 Levemir FlexPen 70 unit, 0.7 SUB-Q No Longer [facility] 01/15/ H Sugar mL, Route: Active 2010 [facility] SUB-Q, Drug form: INJ, Bedtime, Start date: 01/14/11 21:00:00, Duration: 30 day, Stop date: 02/12/11 21:00:00 Lantus 70 unit, SUB-Q No Longer [place] Sugar Route: SUB-Q, Active 2010 [facility] Bedtime, Start date: 01/14/11 21:00:00, Duration: 30 day, Stop date: 02/12/11 21:00:00 glucagon 1 mg, Route: IM No Longer [facility] Sugar IM, Drug form: Active 2010 [facility] PDR/INJ, PRN, PRN Blood Glucose Results, Start date: 01/14/11 19:22:00, Duration: 30 day, Stop date: 02/13/11 19:21:00 Insulin (Novolog) 6 unit, 0.06 SUB-Q No Longer Crockett Sugar Sliding Scale - mL, Route: Active 2010 [facility] Very High SUB-Q, Drug form: SOLN, Sliding Scale, PRN Blood Glucose Results, Start date: 01/14/11 19:22:00, Duration: 30 day, Stop date: 02/13/11 19:21:00 Dextrose 50% 25 gm, 50 ml, IM No Longer Crockett Sugar Syringe Route: IM, Active 2010 Drug Form: INJ, PRN, PRN Blood Glucose Results, Start date: 01/14/11 19:22:00, Duration: 30 day, Stop date: 02/13/11 19:21:00 Saline Flush 0.9% 5 ml, Route: IVP No Longer Cro[place]ett Sugar IVP, Drug Active 2010 [facility] Form: INJ, PRN, PRN Line Flush, Start date: 01/14/11 19:21:00, Duration: 30 day, Stop date: 02/13/11 19:20:00 nitroglycerin SL 0.4 mg, 1 tab, SL No Longer [facility] Sugar Tab Route: SL, Active 2010 Drug form: TAB, Q5Min, PRN Chest Pain, Start date: 01/14/11 19:21:00, Duration: 3 doses or times, Stop date: Limited # of times acetaminophen-hyd 1 tab, Route: PO No Longer [facility]ett Sugar rocodone 500 mg-5 PO, Drug Form: Active 2010 mg oral tablet TAB, Q4H, PRN Pain Score 1-5, Start date: 01/14/11 19:21:00, Duration: 30 day, Stop date: 02/13/11 19:20:00 acetaminophen 650 mg, 2 tab, PO No Longer Crockett H Sugar Route: PO, Active 2010 Drug form: TAB, Q4H, PRN Headache, Start date: 01/14/11 19:21:00, Duration: 30 day, Stop date: 02/13/11 19:20:00 temazepam 15 mg, 1 cap, PO No Longer [place] Sug ar Route: PO, Active 2010 Drug form: CAP, Bedtime, PRN Insomnia, Start date: 01/14/11 19:21:00, Duration: 30 day, Stop date: 02/13/11 19:20:00 ondansetron 4 mg, 1 tab, PO No Longer Crockett Hein gar Route: PO, Active 2010 Drug form: TAB, Q8H, PRN Nausea & Vomiting, Start date: 01/14/11 19:21:00, Duration: 30 day, Stop date: 02/13/11 19:20:00 aspirin 325 mg 325 mg, 1 tab, PO No Longer Montemayor Sugar tablet Route: PO, Active 2010 Drug form: TAB, ONCE, Priority: STAT, Start date: 01/14/11 18:59:00, Stop date: 01/14/11 18:59:00 Omnipaque 300 45,000 mg, 150 IV Active Montemayor Sugar mL, Route: IV, 2010 Drug form: INJ, ONCE, Start date: 01/14/11 17:39:00, Stop date: 01/14/11 17:39:00 Insulin regular 5 unit, 0.05 IVP No Longer Montemayor H Sugar mL, Route: Active 2010 IVP, Drug form: SOLN, ONCE, Priority: STAT, Start date: 01/14/11 17:10:00, Stop date: 01/14/11 17:10:00 GI cocktail 30 ml, Route: PO No Longer Montemayor S ugar PO, Drug Form: Active 2010 [facility] SUSP, ONCE, Routine, Start date: 01/14/11 17:08:00, Stop date: 01/14/11 17:08:00 NS (Bolus) IV 1,000 mL, IV No Longer Montemayor Sug ar 1,000 mL Rate: 1,000 Active 2010 ml/hr, Infuse over: 1 hr, Route: IV, Total Volume: 1,000, Priority: STAT, Start date: 01/14/11 17:07:00, Duration: 1 doses or times, Stop date: 01/14/11 18:06:00, Bolus DoseBolus Dose Saline Flush 0.9% 5 ml, Route: IVP No Longer Montemayor Sugar IVP, Drug Active 2010 [facility] Form: INJ, PRN, PRN Line Flush, Start date: 01/14/11 15:20:00, Duration: 30 day, Stop date: 02/13/11 15:19:00 ibuprofen 400 mg 1 tab, PO, PO Active [facility] S ugar oral tablet Q4H, PRN, 2010 tab, Pain, Substitution Allowed acetaminophen-hyd 1 tab, PO, PO Active [facility] Sugar rocodone 500 mg-5 Q4-6H, PRN, 2010 [place] mg oral tablet tab, Pain, Substitution Allowed, Maintenance acetaminophen-hyd 1 tab, Route: PO No Longer Raulito Sugar rocodone 500 mg-5 PO, Drug Form: Active 2010 [facility] mg oral tablet TAB, ONCE, STAT, Start date: 12/22/10 12:39:00, Stop date: 12/22/10 12:39:00 Allergies, Adverse Reactions, Alerts Substance Category Reaction Severity Reaction Status Date Comments S ource type Reported Ritalin Assertion Drug Active allergy [facility] Immunizations No Data Provided for This Section Results Order Name Results Value Reference Date Interpretation Comments Nely rce Range BACTERIAL Strep Negative Negative 02/26 [facility] - SEROLOGY pneumoniae (02/25/17 9:02 PM) /2016 Hospital Ag BACTERIAL Source Strep Cerebral 02/26 [facility] - SEROLOGY Spinal /2016 Hospital Fluid BODY Tube Num CSF 1 02/26 [facility] FLUIDS /2016 Hospital BODY Clarity CSF Clear Clear 02/26 [facility] FLUIDS (02/25/17 9:02 PM) /2016 [facility]pi [facility] BODY Color CSF Colorless Colorless 02/26 [facility] FLUIDS (02/25/17 9:02 PM) /2016 [facility]pi [facility] BODY Supernat CSF Colorless Colorless 02/26 [facility] FLUIDS (02/25/17 9:02 PM) /2016 Hospi [facility] BODY WBC CSF 2 0 - 53 02/26 [facility] FLUIDS /2016 Hospital BODY RBC CSF 1 0 - 03 02/26 [facility] FLUIDS /2016 Hospital BODY RBC CSF 1 0 - 03 02/26 [facility]UIDS /2017 Hospital BODY WBC CSF 2 0 - 53 02/26 [facility]UIDS /2016 Hospital BODY Supernat CSF Colorless Colorless 02/26 [facility] FLUIDS (02/25/17 9:02 PM) /2016 Hospi [facility]ly BODY Clarity CSF Clear Clear 02/26 [facility] FLUIDS (02/25/17 9:02 PM) /2016 Hospi [facility]ly BODY Tube Num CSF 4 02/26 [facility]UIDS /2016 Hospital BODY Color CSF Colorless Colorless 02/26 [facility] FLUIDS (02/25/17 9:02 PM) /2016 Hospi [facility] BODY Glucose CSF 219 45 - 80 02/26 [facility] FLUIDS Comment: Hospital Critical Result(s) called to Charlotte Hodge at _02/25/2017 21:45 bybz_. Read back OK.

NOTE: RESULTS autoverfied BODY Protein CSF 55 15 - 45 02/26 [facility] FLUIDS /2016 Hospital FUNGAL - Crypto Ag Negative Negative 02/26 [facility] SEROLOGY CSF (02/25/17 9:02 PM) /2016 Hosp ital IMMUNOLOGY VDRL Scr CSF Non Reactive Non 02/26 [facility] (02/25/17 9:02 PM) Reactive /2016 Hosp ital MOLECULAR HSV 2 by PCR Negative 2 Negative 02/26 [facility] (02/25/17 9:02 PM) /2016 Comment: T his Hospital sample was NON DETECTED or BELOW THE LOWER LIMITS OF DETECTION<br/ >for HSV 1/2 DNA by real-time PCR using hybridization probe and
melti ng curve analysis. MOLECULAR HSV 1 by PCR Negative 1 Negative 02/26 [facility] (02/25/17 9:02 PM) Comment: T his Hospital sample was NON DETECTED or BELOW THE LOWER LIMITS OF DETECTION<br/ >for HSV 1/2 DNA by real-time PCR using hybridization probe and
melti ng curve analysis. MOLECULAR Source HSV Cerebral 02/26 [facility] DIAGNOSTIC Spinal /2016 [facility] Fl[facility]AL [facility]25[facility]17 9:02 PM[facility]osp [facility] CHEM PANEL A/G Ratio 0.9 0.7 - 1.6 02/26 [facility] CHEM PANEL B/C Ratio 23 6 - 25 02/26 [facility] CHEM PANEL Globulin 4.3 2.7 - 4.2 02/26 [facility] CHEM PANEL AGAP 11.3 10.0 - 02/26 [facility] 20.0 [facility] CHEM PANEL eGFR 101 02/26 [facility] Comment: The Hospital eGFR is calculated using the CKD-EPI formula. In most young, healthy individuals the eGFR will be >90 mL/min/1.73m2 . The eGFR declines with age. An eGFR of 60-89 may be normal in some populations, particularly the elderly, for whom the CKD-EPI formula has not been extensively validated. Use of the eGFR is not recommended in the following populations:< br/>
Yajaira viduals with unstable creatinine concentration s, including patients and those with serious co-morbid conditions.<b r/>
Patie nts with extremes in muscle mass or diet.

The data above are obtained from the National Kidney Disease Education Program (NKDEP) which additionally recommends that when the eGFR is used in patients with extremes of body mass index for purposes of drug dosing, the eGFR should be multiplied by the estimated BMI. CHEM PANEL Bili Total 0.3 0.2 - 1.3 02/26 [facility] CHEM PANEL BUN 16 7 - 22 02/26 [facility] CHEM PANEL ALANINE 17 0 - 65 02/26 [facility] RASE CHEM PANEL Total 8.2 6.4 - 8.4 02/26 [facility] CHEM PANEL Potassium 4.3 3.5 - 5.1 02/26 [facility] /2016 [facility] CHEM PANEL Sodium Lvl 130 135 - 145 02/26 [facility] /2016 [facility] CHEM PANEL Creatinine 0.70 0.50 - 02/26 [facility] Lvl 1.40 /2016 Hospital CHEM PANEL Glucose Lvl 340 70 - 99 02/26 [facility] /2016 [facility] CHEM PANEL Calcium Lvl 8.9 8.5 - 10.5 02/26 [facility] /2017 [facility] CHEM PANEL Chloride Lvl 97 95 - 109 02/26 [facility] /2016 [facility] CHEM PANEL CO2 26 24 - 32 02/26 [facility] /2017 Hospital CHEM PANEL Alk Phos 158 39 - 136 02/26 [facility] /2017 Hospital CHEM PANEL ASPARTATE 16 0 - 37 02/26 [facility]ANSAM[facility]ASE [facility] CHEM PANEL Albumin Lvl 3.9 3.5 - 5.0 02/26 [facility] /2016 [facility] CHEM PANEL Lactic Acid 1.8 0.5 - 2.2 02/26 [facility] Lvl /2016 Hospital HEMATOLOGY Platelet 305 133 - 450 02/26 [facility] /2017 Hospital HEMATOLOGY MCV 82.2 80.0 - 02/26 [facility] 98.0 /2016 Hospital HEMATOLOGY Hct 37.1 36.0 - 02/26 [facility] 48.0 /2016 Hospital HEMATOLOGY MPV 7.4 7.4 - 10.4 02/26 [facility] /2017 Hospital HEMATOLOGY RDW 14.1 11.5 - 02/26 [facility] 14.5 /2016 Hospital HEMATOLOGY MCH 27.6 27.0 - 02/26 [facility] 31.0 /2016 Hospital HEMATOLOGY MCHC 33.6 32.0 - 02/26 [facility] 36.0 /2017 Hospital HEMATOLOGY RBC X 10x6 4.52 4.20 - 02/26 [facility] 5.40 /2016 Hospital HEMATOLOGY Hgb 12.5 12.0 - 02/26 [facility] 16.0 /2016 Hospital HEMATOLOGY WBC X 10x3 7.1 3.7 - 10.4 02/26 [facility] /2017 [facility] HEMATOLOGY Basophils 0.8 0.0 - 1.0 02/26 [facility] /2017 [facility] HEMATOLOGY Lymphocytes 2.8 1.0 - 5.5 02/26 [facility] # /2017 Hospital HEMATOLOGY Segs-Bands # 3.8 1.5 - 8.1 02/26 [facility] /2017 [facility] HEMATOLOGY Monocytes # 0.4 0.0 - 0.8 02/26 [facility] /2016 Hospital HEMATOLOGY Segs 53.4 45.0 - 02/26 [facility] 75.0 /2016 Hospital HEMATOLOGY Lymphocytes 39.1 20.0 - 02/26 [facility] 40.0 /2016 [facility] HEMATOLOGY Eosinophils 1.4 0.0 - 4.0 02/26 [facility] /2016 Hospital HEMATOLOGY Monocytes 5.3 2.0 - 12.0 02/26 [facility] /2016 [facility] HEMATOLOGY Basophils # 0.1 0.0 - 0.2 02/26 [facility] HEMATOLOGY Eosinophils 0.1 0.0 - 0.5 02/26 [facility] # /2016 Hospital URINE AND UA 0.2 0.1 - 1.0 02/26 [facility] STOOL Urobilinogen /2016 Hospital URINE AND UA Nitrite Negative Negative 02/26 [facility] (02/25/17 7:42 PM) [facility] URINE AND UA Bili Negative Negative 02/26 [facility] STOOL *NA* /2016 Hospital (02/25/17 7:42 PM) URINE AND UA Ketones Negative Negative 02/26 [facility] *NA* /2016 [facility] (02/25/17 7:42 PM) URINE AND UA Bacteria Many /HPF None Seen 02/26 [facility] STOOL /HPF /2016 Hospital URINE AND UA WBC 0-2 /HPF None Seen 02/26 [facility] STOOL /HPF /2016 Hospital URINE AND UA RBC 0-2 /HPF 0 - 2 02/26 [facility] STOOL /2016 Hospital URINE AND UA Leuk Est Negative Negative 02/26 [facility] (02/25/17 7:42 PM) /2016 Hospi [facility]ly URINE AND UA Sq Epi Few /LPF Few /LPF 02/26 [facility] STOOL Hospital URINE AND UA Blood Negative Negative 02/26 [facility] STOOL (02/25/17 7:42 PM) Hospi [facility] URINE AND UA Glucose >=1000 Negative 02/26 [facility] STOOL mg/dL mg/dL /2016 Hospital URINE AND UA Protein Negative Negative 02/26 [facility] (02/25/17 7:42 PM) [facility]pi [facility]ly URINE AND UA pH 6.0 5.0 - 8.0 02/26 [facility] STOOL /2016 Hospital URINE AND UA Spec Grav 1.010 <=1.030 02/26 [facility] URINE AND UA Color Yellow Yellow 02/26 [facility] STOOL *NA* /2016 Hospital (02/25/17 7:42 PM) URINE AND UA Turbidity Slight Cloudy Clear 02/26 [facility] STOOL (02/25/17 7:42 PM) Hospi [facility]ly VIRAL - Influ B Negative Negative 02/26 [facility] SEROLOGY (02/25/17 7:42 PM) [facility]osp ital VIRAL - Influ A Negative Negative 02/26 [facility] SEROLOGY (02/25/17 7:42 PM) Hosp ital CHEM PANEL eGFR 121 01/26 [facility] Comment: The Hospital eGFR is calculated using the CKD-EPI formula. In most young, healthy individuals the eGFR will be >90 mL/min/1.73m2 . The eGFR declines with age. An eGFR of 60-89 may be normal in some populations, particularly the elderly, for whom the CKD-EPI formula has not been extensively validated. Use of the eGFR is not recommended in the following populations:< br/>
Yajaira viduals with unstable creatinine concentration s, including patients and those with serious co-morbid conditions.<b r/>
Patie nts with extremes in muscle mass or diet.

The data above are obtained from the National Kidney Disease Education Program (NKDEP) which additionally recommends that when the eGFR is used in patients with extremes of body mass index for purposes of drug dosing, the eGFR should be multiplied by the estimated BMI. CHEM PANEL Bili Total 0.2 0.2 - 1.3 01/26 [facility] CHEM PANEL Alk Phos 165 39 - 136 01/26 [facility] CHEM PANEL B/C Ratio 12 6 - 25 01/26 [facility] CHEM PANEL Globulin 3.3 2.7 - 4.2 01/26 [facility] CHEM PANEL Albumin Lvl 2.4 3.5 - 5.0 01/26 [facility] CHEM PANEL Total 5.7 6.4 - 8.4 01/26 [facility] CHEM PANEL AGAP 9.7 10.0 - 01/26 [facility] 20[facility]0 [facility] CHEM PANEL Glucose Lvl 261 70 - 99 01/26 [facility] CHEM PANEL Calcium Lvl 7.4 8.5 - 10.5 01/26 [facility] CHEM PANEL A/G Ratio 0.7 0.7 - 1.6 01/26 [facility] CHEM PANEL Creatinine 0.40 0.50 - 01/26 [facility]vl 1[facility]40 [facility] CHEM PANEL BUN 5 7 - 22 01/26 [facility] 2017 Hospital CHEM PANEL ASPARTATE 37 0 - 37 01/26 [facility]ANSAMINASE [facility] CHEM PANEL ALANINE 44 0 - 65 01/26 [facility] RASE CHEM PANEL Potassium 3.7 3.5 - 5.1 01/26 [facility] CHEM PANEL Sodium Lvl 137 135 - 145 01/26 [facility] CHEM PANEL CO2 25 24 - 32 10 [facility] CHEM PANEL Chloride Lvl 106 95 - 109 01/26 [facility] CARDIAC Troponin-I <0.02 0.00 - 01/25 [facility] ENZYMES 0.40 [facility] PARATHYROI Ca Norm WB 0.99 1.05 - 01/25 [facility] D PROFILE 1. [facility] PARATHYROI Ca Ion WB 1.01 1.05 - 01/25 [facility] D PROFILE 1. Hospital CHEM PANEL Albumin Lvl 2.6 3.5 - 5.0 01/25 [facility] CHEM PANEL eGFR 112 01/25 [facility] Comment: The Hospital eGFR is calculated using the CKD-EPI formula. In most young, healthy individuals the eGFR will be >90 mL/min/1.73m2 . The eGFR declines with age. An eGFR of 60-89 may be normal in some populations, particularly the elderly, for whom the CKD-EPI formula has not been extensively validated. Use of the eGFR is not recommended in the following populations:< br/>
Yajaira viduals with unstable creatinine concentration s, including patients and those with serious co-morbid conditions.<b r/>
Patie nts with extremes in muscle mass or diet.

The data above are obtained from the National Kidney Disease Education Program (NKDEP) which additionally recommends that when the eGFR is used in patients with extremes of body mass index for purposes of drug dosing, the eGFR should be multiplied by the estimated BMI. CHEM PANEL Creatinine 0.50 0.50 - 01/25 [facility] 1[facility]40 [facility] CHEM PANEL Sodium Lvl 135 135 - 145 01/25 [facility] CHEM PANEL Potassium 3.6 3.5 - 5.1 01/25 [facility] CHEM PANEL CO2 25 24 - 32 01/25 [facility] CHEM PANEL Chloride Lvl 105 95 - 109 01/25 [facility] CHEM PANEL AGAP 8.6 10.0 - 01/25 [facility] 20.0 [facility] CHEM PANEL Calcium Lvl 6.9 8.5 - 10.5 01/25 [facility] Comment: Hospital Critical Result(s) called to uyen martinez_ at _01/25/2017 15:47 by_bz. Read back OK. CHEM PANEL Glucose Lvl 263 70 - 99 01/25 [facility] CHEM PANEL BUN 8 7 - 22 01/25 [facility] CHEM PANEL Phosphorus 2.7 2.5 - 4.5 01/25 [facility] CHEM PANEL eGFR 106 01/25 [facility] Comment: The Hospital eGFR is calculated using the CKD-EPI formula. In most young, healthy individuals the eGFR will be >90 mL/min/1.73m2 . The eGFR declines with age. An eGFR of 60-89 may be normal in some populations, particularly the elderly, for whom the CKD-EPI formula has not been extensively validated. Use of the eGFR is not recommended in the following populations:< br/>
Yajaira viduals with unstable creatinine concentration s, including patients and those with serious co-morbid conditions.<b r/>
Patie nts with extremes in muscle mass or diet.

The data above are obtained from the National Kidney Disease Education Program (NKDEP) which additionally recommends that when the eGFR is used in patients with extremes of body mass index for purposes of drug dosing, the eGFR should be multiplied by the estimated BMI. CHEM PANEL Creatinine 0.60 0.50 - 10 [facility] CHEM PANEL BUN 9 7 - 22 01/25 [facility] CHEM PANEL Glucose Lvl 405 70 - 99 01/25 [facility] Comment: Hospital Critical Result(s) called to Dung Mullins at 01/25/2017 04:39 by CV. Read back OK. CHEM PANEL AGAP 12.5 10.0 - 01/25 [facility] 20.0 [facility] CHEM PANEL Potassium 3.5 3.5 - 5.1 01/25 [facility] CHEM PANEL Chloride Lvl 102 95 - 109 01/25 [facility] [facility] CHEM PANEL CO2 23 24 - 32 01/25 [facility] CHEM PANEL Calcium Lvl 7.1 8.5 - 10.5 01/25 [facility] CHEM PANEL Sodium Lvl 134 135 - 145 01/25 [facility] CHEM PANEL Magnesium 1.7 1.8 - 2.4 01/25 [facility] HEMATOLOGY MPV 7.4 7.4 - 10.4 01/25 [facility] HEMATOLOGY RDW 13.6 11.5 - 01/25 [facility]5 [facility] HEMATOLOGY Platelet 244 133 - 450 01/25 [facility] HEMATOLOGY MCHC 33.4 32.0 - 01/25 [facility]0 [facility] HEMATOLOGY MCV 82.5 80.0 - 01/25 [facility] 98[facility]0 [facility] HEMATOLOGY MCH 27.6 27.0 - 01/25 [facility] 31[facility]0 [facility] HEMATOLOGY Hgb 10.7 12.0 - 01/25 [facility] 16[facility]0 [facility] HEMATOLOGY Hct 32.0 36.0 - 01/25 [facility] 48[facility]0 [facility] HEMATOLOGY WBC X 10x3 5.5 3.7 - 10.4 01/25 [facility] HEMATOLOGY RBC X 10x6 3.88 4.20 - 01/25 [facility]40 [facility] HEMATOLOGY Monocytes 7.2 2.0 - 12.0 01/25 [facility]2016 [facility] HEMATOLOGY Monocytes # 0.4 0.0 - 0.8 01/25 [facility] /2016 [facility] HEMATOLOGY Segs-Bands # 3.0 1.5 - 8.1 01/25 [facility] HEMATOLOGY Lymphocytes 2.0 1.0 - 5.5 01/25 [facility] # /2016 [facility] HEMATOLOGY Eosinophils 0.9 0.0 - 4.0 01/25 [facility] HEMATOLOGY Basophils 0.6 0.0 - 1.0 01/25 [facility]2016 [facility] HEMATOLOGY Lymphocytes 36.3 20.0 - 01/25 [facility] 40[facility]0 [facility] HEMATOLOGY Segs 55.0 45.0 - 01/25 [facility] 75[facility]0 [facility] SPECIAL Hgb A1C >16.0 % <=5.6 % 01/25 [facility]STR[facility] URINE AND UA Sq Epi Occasional Few /LPF 01/25 [facility]OOL /LPF /2016 [facility] URINE AND UA WBC 11-20 /HPF None Seen 01/25 [facility] /HPF /2016 [facility] URINE AND UA Bacteria Moderate None Seen 01/25 [facility]OOL /HPF /HPF /2016 Hospital URINE AND UA RBC 0-2 /HPF 0 - 2 01/25 [facility] /2016 [facility] URINE AND UA Leuk Est Negative Negative 01/25 [facility] (01/24/17 11:54 PM) /2016 Hosp ital URINE AND UA Nitrite Positive Negative 01/25 [facility] *ABN* /2016 Hospital (01/24/17 11:54 PM) URINE AND UA Blood Negative Negative 01/25 [facility] (01/24/17 11:54 PM) [facility] URINE AND UA Bili Negative Negative 01/25 [facility] *NA* /2016 Hospital (01/24/17 11:54 PM) URINE AND UA Glucose >=1000 Negative 01/25 [facility]OOL mg/dL mg/dL /2016 Hospital URINE AND UA Protein Negative Negative 01/25 [facility] (01/24/17 11:54 PM) [facility] URINE AND UA 0.2 0.1 - 1.0 01/25 [facility]OOL Urobilinogen /2016 Hospital URINE AND UA Ketones Negative Negative 01/25 [facility] *NA* /2016 [facility] (01/24/17 11:54 PM) URINE AND UA pH 5.5 5.0 - 8.0 01/25 [facility]OOL /2016 [facility] URINE AND UA Spec Grav <=1.005 <=1.030 01/25 [facility] *NA* /2016 [facility] (01/24/17 11:54 PM) URINE AND UA Color Yellow Yellow 01/25 [facility]OOL *NA* /2016 [facility] (01/24/17 11:54 PM) URINE AND UA Turbidity Clear Clear 01/25 [facility] (01/24/17 11:54 PM) Hosp ital CARDIAC Total CK 62 12 - 191 01/25 [facility] CARDIAC CK MB <1.0 0.5 - 3.6 01/25 [facility] CARDIAC Troponin-I <0.02 0.00 - 01/25 [facility] 0[facility]40 [facility] CARDIAC CK-MB INDEX <1.6 0.0 - 2.5 01/25 [facility] CHEM PANEL ASPARTATE 14 0 - 37 01/25 [facility] CHEM PANEL Bili Total 0.5 0.2 - 1.3 01/25 [facility] CHEM PANEL ALANINE 37 0 - 65 01/25 [facility]ASE CHEM PANEL Alk Phos 222 39 - 136 01/25 [facility] CHEM PANEL A/G Ratio 0.7 0.7 - 1.6 01/25 [facility] CHEM PANEL Globulin 4.7 2.7 - 4.2 01/25 [facility] CHEM PANEL Albumin Lvl 3.5 3.5 - 5.0 01/25 [facility] CHEM PANEL B/C Ratio 16 6 - 25 01/25 [facility] 2017 [facility] CHEM PANEL Total 8.2 6.4 - 8.4 01/25 [facility] CHEM PANEL Lipase Lvl 168 73 - 393 01/25 [facility] 2017 [facility] HEMATOLOGY Hgb 13.7 12.0 - 01/25 [facility] 16.0 [facility] HEMATOLOGY Hct 41.6 36.0 - 01/25 [facility] 48.0 [facility] HEMATOLOGY MCV 83.6 80.0 - 01/25 [facility] 98.0 /2016 [facility] HEMATOLOGY MCH 27.5 27.0 - 01/25 [facility] 31.0 /2017 [facility] HEMATOLOGY MCHC 32.9 32.0 - 01/25 [facility] 36.0 /2016 [facility] HEMATOLOGY RDW 13.6 11.5 - 10 [facility] 14[facility]5 [facility] HEMATOLOGY Platelet 314 133 - 450 01/25 [facility] /2017 [facility] HEMATOLOGY MPV 8.1 7.4 - 10.4 01/25 [facility] /2017 [facility] HEMATOLOGY WBC X 10x3 5.8 3.7 - 10.4 01/25 [facility] /2017 [facility] HEMATOLOGY RBC X 10x6 4.97 4.20 - 01/25 [facility] 5.40 /2016 [facility] HEMATOLOGY Monocytes # 0.4 0.0 - 0.8 01/25 [facility] /2017 [facility] HEMATOLOGY Basophils 0.7 0.0 - 1.0 01/25 [facility] /2016 [facility] HEMATOLOGY Segs-Bands # 3.5 1.5 - 8.1 01/25 [facility] 2017 [facility] HEMATOLOGY Monocytes 7.1 2.0 - 12.0 01/25 [facility] /2016 [facility] HEMATOLOGY Eosinophils 0.6 0.0 - 4.0 01/25 [facility] /2017 [facility] HEMATOLOGY Lymphocytes 1.8 1.0 - 5.5 01/25 [facility] # /2016 [facility] HEMATOLOGY Segs 59.9 45.0 - 01/25 [facility] 75.0 /2016 [facility] HEMATOLOGY Lymphocytes 31.7 20.0 - 01/25 [facility] 40[facility]0 [facility] BEDSIDE Comment1 Notify 02/05 NA GLUCOSE KIRIT/ /2011 [facility] [place] TESTING BEDSIDE Gluc POC 293 70 - 99 02/05 [place] <sup>1</sup>I GLUCOSE [facility] nterpretive [facility] [place] TESTING Data: Upper Reportable Limit: 200 mg/dL. BEDSIDE Comment1 Notify 11/28 [facility] [place] [facility] [place]/ [facility] [place] [facility] BEDSIDE Gluc POC 233 70 - 99 11/28 [place] <sup>1</sup>I [place] GLUCOSE [facility] [place] TESTING Data: Upper Reportable Limit: 200 mg/dL. CHEMISTRY Ketone 0.14 <=0.27 11/28 Normal [place] Quantitative [place] CHEMISTRY AST 8 0 - 37 11/28 Normal [facility] /2011 [facility] CHEMISTRY Bili Total 0.2 0.2 - 1.3 11/28 Normal [facility] [place] /2011 [facility] CHEMISTRY CO2 27 24 - 32 11/28 Normal [facility] [place] /2011 [facility] CHEMISTRY AGAP 13.2 10.0 - 11/28 Normal [facility] [place] 20.0 /2011 [facility] CHEMISTRY Calcium Lvl 8.8 8.5 - 10.5 11/28 Normal [facility] [place] /2011 [facility] CHEMISTRY Total 7.6 6.4 - 8.4 11/28 Normal [facility] [place] Protein [place] CHEMISTRY B/C Ratio 16 6 - 25 11/28 Normal [facility] /2011 [facility] CHEMISTRY Albumin Lvl 3.8 3.5 - 5.0 11/28 Normal [facility] [place] /2011 [facility] CHEMISTRY Globulin 3.8 2.0 - 4.0 11/28 Normal [facility] [place] /2011 [facility] CHEMISTRY A/G Ratio 1.0 0.7 - 1.6 11/28 Normal [facility] [place] CHEMISTRY Alk Phos 116 39 - 136 11/28 Normal [facility] [place] CHEMISTRY ALT 13 0 - 65 11/28 [facility] [place] CHEMISTRY Glucose Lvl 476 70 - 99 11/28 CRIT <sup>3</sup>R [facility] [place] Comment: Critical Result(s) called to Carisa at 11/28/2011 22:38:17 CDT by juancho. Read back OK.
<sup> 4</sup>Interp retive Data: Adult reference range values reflect the clinical guidelines
of the [place] [employer]. CHEMISTRY Chloride Lvl 98 95 - 109 11/28 Normal [facility] [place] CHEMISTRY Creatinine 0.7 0.5 - 1.4 11/28 Normal [facility] [place] L[facility] [place] CHEMISTRY BUN 11 7 - 22 11/28 [facility] [place] CHEMISTRY Potassium 4.2 3.5 - 5.1 11/28 Normal [place] [facility] [place] CHEMISTRY Sodium Lvl 134 135 - 145 11/28 LOW [facility] [place] /2011 [place] HEMATOLOGY RBC 4.41 4.20 - 11/28 Normal [facility] [place] 5.40 /2011 [place] HEMATOLOGY WBC 5.7 3.7 - 10.4 11/28 Normal [facility] [place] HEMATOLOGY MCHC 33.2 32.0 - 11/28 Normal [facility] [place] 36.0 /2011 [place] HEMATOLOGY Hgb 12.9 12.0 - 11/28 Normal [facility] [place] 16.0 /2011 [place] HEMATOLOGY RDW 13.8 11.5 - 11/28 Normal [facility] [place] 14.5 /2011 [place] HEMATOLOGY MCV 88.4 81.0 - 11/28 Normal [facility] [place] 99.0 /2011 [place] HEMATOLOGY MCH 29.3 27.0 - 11/28 Normal [facility] [place] 31.0 /2011 [place] HEMATOLOGY Hct 38.9 36.0 - 11/28 Normal [facility] [place] 48.0 /2011 [place] HEMATOLOGY MPV 7.5 7.4 - 10.4 11/28 Normal [place] /2011 [facility] HEMATOLOGY Platelet 311 133 - 450 11/28 Normal [place] /2011 [facility] HEMATOLOGY Segs 57.5 45.0 - 11/28 Normal [facility] [place] 75.0 /2011 [place] HEMATOLOGY Basophils 0.5 0.0 - 1.0 11/28 Normal [place] /2011 [place] HEMATOLOGY Eosinophils 1.5 0.0 - 4.0 11/28 Normal [facility] [facility] /2011 [place] HEMATOLOGY Monocytes 5.3 2.0 - 12.0 11/28 Normal [place] /2011 [place] HEMATOLOGY Lymphocytes 35.2 20.0 - 11/28 Normal [place] 40.0 /2011 [place] HEMATOLOGY Lymphocytes 2.0 1.0 - 5.5 11/28 Normal [facility] # /2011 [place] HEMATOLOGY Segs-Bands # 3.3 1.5 - 8.1 11/28 Normal [place] [facility] /2011 [place] HEMATOLOGY Eosinophils 0.1 0.0 - 0.5 11/28 Normal [place] # /2011 [place] HEMATOLOGY Monocytes # 0.3 0.0 - 0.8 11/28 Normal [place] /2011 [facility] HEMATOLOGY Basophils # 0.0 0.0 - 0.2 11/28 Normal [place] /2011 [place] URINALYSIS UA Spec Grav 1.010 <=1.030 11/28 Normal [place] /2011 [place] URINALYSIS UA pH 5.5 5.0 - 8.0 11/28 [facility] [place] URINALYSIS UA Color Yellow Yellow 11/28 NA [place] *NA* /2011 [facility] (11/28/2011 22:05:00) URINALYSIS UA Turbidity Clear Clear 11/28 Normal [place] (11/28/2011 22:05:00) [place] URIN[place]YSIS UA Nitrite Negative Negative 11/28 Normal [place] (11/28/2011 22:05:00) [place] URINALYSIS UA Leuk Est Negative Negative 11/28 Normal [facility] [place] (11/28/2011 22:05:00) [place] URINALYSIS UA 0.2 0.1 - 1.0 11/28 Normal [facility] [place] Urobilinogen /2011 [place] URINALYSIS UA Glucose >=1000 mg/dL Negative 11/28 ABN [facility] *ABN* /2011 [facility] (11/28/2011 22:05:00) URINALYSIS UA Ketones Negative mg/dL Negative 11/28 NA [facility] [place] *NA* /2011 [facility] (11/28/2011 22:05:00) URINALYSIS UA Protein Negative mg/dL Negative 11/28 Normal [facility] [place] (11/28/2011 22:05:00) [place] URINALYSIS UA Blood Negative Negative 11/28 Normal [facility] [place] (11/28/2011 22:05:00) [place] URINALYSIS UA Bili Negative Negative 11/28 NA [facility] [place] *NA* /2011 [place] (11/28/2011 22:05:00) URINALYSIS UA Sq Epi Rare /LPF Few 11/28 Normal [facility] [place] (11/28/2011 22:05:00) /2011 [place] URINALYSIS UA Bacteria Occasional /HPF None Seen 11/28 Normal [facility] [place] (11/28/2011 22:05:00) [place] URINALYSIS UA RBC 0-2 /HPF 0 - 2 11/28 Normal [facility] [place] (11/28/2011 22:05:00) [place] URINALYSIS UA WBC 0-2 /HPF None Seen 11/28 Normal [facility] [place] (11/28/2011 22:05:00) [place] URINALYSIS Micro? Performed 11/28 Normal [facility] [place] (11/28/2011 22:05:00) [place] BEDSIDE Gluc POC >400 70 - 99 11/28 CRIT <sup>2</sup>I [facility] [place] GLUCOSE [facility] [place]terpretive [place] TESTING Data: Upper Reportable Limit: 200 mg/dL. BEDSIDE Comment1 Notify 11/28 NA [facility] [place] GLUCOSE RN/ [place] TESTING BEDSIDE Gluc POC 224 70 - 99 10/24 HI <sup>1</sup>I [facility] [place] GLUCOSE [facility] nterpretive [place] TESTING Data: Upper Reportable Limit: 200 mg/dL. BEDSIDE Gluc POC 94 70 - 99 10/24 Normal <sup>2</sup>I [facility] [place] GLUCOSE [facility] /2011 nterpretive [place] TESTING Data: Upper Reportable Limit: 200 mg/dL. CHEMISTRY pO2 Korey 72 20 - 49 07/ HI [facility] /2011 [facility] CHEMISTRY pCO2 Kore[place] 40 38 - 52 07/ Normal [facility] [place] /2011 [place] CHEMISTRY pH Korey 7.42 7.28 - 07 Normal [facility] [place] 7.42 /2012 [place] CHEMISTRY Flow [place] 0.0 / NA [facility] [place] /2011 [place] CHEMISTRY Mode [place] Rm Air 10/24 Normal [place] (10/24/2011 22:06:00) /2011 [place] CHEMISTR[place] O2 Sat [place] 95.0 40.0 - 07 HI [facility] [place] 70.0 /2011 [place] CHEMISTRY BE [place] 1 -2-2 - 2 10/24 Normal [place] /2011 [place] CHEMISTRY HCO3 Kore[place] 26 22 - 26 10/24 Normal [place] /2012 [place] CHEMISTRY Lipase Lvl 181 73 - 393 / Normal [place] /2011 [place] CHEMISTRY Amylase Lvl 153 25 - 115 / [place] CHEMISTRY BUN 19 7 - 22 / Normal [place] /2012 [place] CHEMISTRY Calcium Lvl 8.4 8.5 - 10.5 10/24 LOW [facility] [place] [facility] /2011 [place] CHEMISTRY Glucose Lvl 431 70 - 99 10/24 CRIT <sup>4</sup>R [facility] /2011 [facility] [place] Comment: Critical Result(s) called to at 10/24/2011 22:42:11 CDT bylp. Read back OK.
<sup> 5</sup>Interp retive Data: Adult reference range values reflect the clinical guidelines
of the [place] [employer]. CHEMISTRY Chloride Lvl 100 95 - 109 / Normal [place] /2012 [place] CHEMISTRY Albumin Lvl 3.8 3.5 - 5.0 / Normal [facility] [place] /2012 [place] CHEMISTRY Globulin 3.7 2.0 - 4.0 / Normal [place] /2012 [place] CHEMISTRY CO2 27 24 - 32 10/24 Normal [place] /2012 [place] CHEMISTRY AGAP 12.2 10.0 - 07/13 Normal [place] 20.0 /2012 [place] CHEMISTRY Potassium 4.2 3.5 - 5.1 / Normal [place] Lvl /2011 [place] CHEMISTRY Creatinine 0.8 0.5 - 1.4 10/24 Normal [place] Lvl /2012 [place] CHEMISTRY Sodium Lvl 135 135 - 145 07/ Normal [place] /2011 [place] CHEMISTRY B/C Ratio 24 6 - 25 07 Normal [facility] [place] /2011 [place] CHEMISTRY Total 7.5 6.4 - 8.4 10/24 Normal [place] /2011 [place] CHEMISTRY AST 10 0 - 37 10/24 Normal [facility] [place] CHEMISTRY Alk Phos 100 39 - 136 10/24 Normal [facility] [place] CHEMISTRY Bili Total 0.3 0.2 - 1.3 10/24 Normal [facility] [place] CHEMISTRY A/G Ratio 1.0 0.7 - 1.6 10/24 Normal [place] CHEMISTRY ALT 17 0 - 65 10/24 Normal [place] CHEMISTRY Ketone 0.22 <=0.27 10/24 Normal [facility] [place] HEMATOLOGY Eosinophils 0.1 0.0 - 0.5 10/24 Normal [facility] [place] # /2011 [place] HEMATOLOGY Lymphocytes 2.0 1.0 - 5.5 10/24 Normal [place] # /2011 [place] HEMATOLOGY Basophils # 0.0 0.0 - 0.2 10/24 Normal [place] /2011 [place] HEMATOLOGY Monocytes # 0.4 0.0 - 0.8 10/24 Normal [place] /2011 [place] HEMATOLOGY Lymphocytes 29.4 20.0 - 07 Normal [place] 40.0 /2011 [place] HEMATOLOGY Segs-Bands # 4.3 1.5 - 8.1 10/24 Normal [facility] /2011 [facility] HEMATOLOGY Monocytes 5.7 2.0 - 12.0 10/24 Normal [place] HEMATOLOGY Basophils 0.4 0.0 - 1.0 10/24 Normal [place] HEMATOLOGY Eosinophils 1.2 0.0 - 4.0 10/24 Normal [place] /2011 [place] HEMATOLOGY Segs 63.3 45.0 - 07 Normal [place] 75.0 /2011 [place] HEMATOLOGY RDW 14.0 11.5 - 07 Normal [place] 14.5 /2011 [place] HEMATOLOGY Platelet 271 133 - 450 10/24 Normal [place] /2011 [place] HEMATOLOGY MPV 8.0 7.4 - 10.4 10/24 Normal [place] HEMATOLOGY Hgb 13.3 12.0 - 07 Normal [facility] [place] 16.0 /2011 [place] HEMATOLOGY Hct 39.4 36.0 - 10/24 Normal [facility] [place] 48.0 /2011 [place] HEMATOLOGY MCV 86.2 81.0 - 10/24 Normal [facility] [place] 99.0 /2011 [place] HEMATOLOGY MCH 29.1 27.0 - 10/24 Normal [facility] [place] 31.0 /2011 [place] HEMATOLOGY MCHC 33.8 32.0 - 10/24 Normal [facility] [place] 36.0 /2011 [place] HEMATOLOGY WBC 6.9 3.7 - 10.4 10/24 Normal [facility] [place] /2011 [place] HEMATOLOGY RBC 4.57 4.20 - 10/24 Normal [facility] [place] 5.40 /2011 [place] URINALYSIS UA Nitrite Positive Negative 10/24 ABN [place] *ABN* /2011 [place] (10/24/2011 22:05:00) URINALYSIS UA Leuk Est Negative Negative 10/24 Normal [place] (10/24/2011 22:05:00) [place] URINALYSIS UA Protein Negative Negative 10/24 Normal [place] (10/24/2011 22:05:00) [place] URINALYSIS UA Glucose >=1000 mg/dL Negative 10/24 ABN [facility] *ABN* /2011 [place] (10/24/2011 22:05:00) URINALYSIS UA pH 6.0 5.0 - 8.0 10/24 Normal [place] /2011 [place] URINALYSIS UA Spec Grav 1.015 <=1.030 10/24 Normal [place] /2011 [place] URINALYSIS UA Color Yellow Yellow 10/24 NA [place] *NA* /2011 [place] (10/24/2011 22:05:00) URINALYSIS UA Turbidity Clear Clear 10/24 Normal [place] (10/24/2011 22:05:00) [place] URINALYSIS UA 0.2 0.1 - 1.0 10/24 Normal [place] Urobilinogen /2011 [place] URINALYSIS UA Ketones Negative Negative 10/24 NA [place] *NA* [place] (10/24/2011 22:05:00) URINALYSIS UA Blood Negative Negative 10/24 Normal [place] (10/24/2011 22:05:00) [place] URINALYSIS UA Bili Negative Negative 10/24 NA [place] *NA* /2011 [place] (10/24/2011 22:05:00) URINALYSIS UA Mucus Rare /LPF None Seen 10/24 Normal [place] (10/24/2011 22:05:00) [place] URINALYSIS UA Bacteria Moderate /HPF None Seen 10/24 Normal M H [place] (10/24/2011 22:05:00) [place] URINALYSIS UA RBC 0-2 /HPF 0 - 2 10/24 Normal [place] (10/24/2011 22:05:00) [place] URINALYSIS Micro? Performed 10/24 Normal [place] (10/24/2011 22:05:00) [place] URINALYSIS UA WBC 6-10 /HPF None Seen 10/24 ABN [facility] [place] *ABN* /2011 [place] (10/24/2011 22:05:00) URINALYSIS UA Sq Epi Rare /LPF Few 10/24 Normal [place] (10/24/2011 22:05:00) [place] BEDSIDE Comment1 Notify 10/24 NA [place] GLUCOSE RN/ [place] TESTING BEDSIDE Gluc POC >400 70 - 99 10/24 CRIT <sup>3</sup>I [place] GLUCOSE [facility] nterpretive [place] TESTING Data: Upper Reportable Limit: 200 mg/dL. BEDSIDE Gluc POC 273 65 - 110 05/23 HI <sup>1</sup>I [place] [facility] Data: Upper Reportable Limit: 200 mg/dL. BEDSIDE Comment1 Notify 05/23 NA [place] GLUCOSE RN/ [place] TESTING BEDSIDE Gluc POC >400 65 - 110 05/23 CRIT <sup>2</sup>I [place] [facility] Data: Upper Reportable Limit: 200 mg/dL. CHEMISTRY Amylase Lvl 121 25 - 115 05/23 [place] CHEMISTRY Creatinine 0.8 0.5 - 1.4 05/23 Normal [place] L[facility] [place] CHEMISTRY CO2 26 24 - 32 05/23 Normal [place] CHEMISTRY Chloride Lvl 96 95 - 109 05/23 Normal [place] CHEMISTRY Potassium 3.9 3.5 - 5.1 05/23 Normal [place] L[facility] [place] CHEMISTRY AGAP 12.9 10.0 - 02 Normal [place] 20.0 [facility] CHEMISTRY Albumin Lvl 4.0 3.5 - 5.0 05/23 Normal [facility] [place] CHEMISTRY Total 7.8 6.4 - 8.4 05/23 Normal [facility] [place] Protein [place] CHEMISTRY B/C Ratio 15 6 - 25 05/23 Normal [place] CHEMISTRY Sodium Lvl 131 135 - 145 02/ LOW [facility] [place] CHEMISTRY A/G Ratio 1.1 0.7 - 1.6 05/23 Normal [facility] [place] CHEMISTRY Globulin 3.8 2.0 - 4.0 05/23 Normal [place] CHEMISTRY Calcium Lvl 8.6 8.5 - 10.5 05/23 Normal [place] [facility] /2011 [place] CHEMISTRY AST 11 0 - 37 05/23 Normal [place] CHEMISTRY Bili Total 0.4 0.2 - 1.3 05/23 Normal [place] CHEMISTRY Alk Phos 113 39 - 136 05/23 Normal [place] CHEMISTRY ALT 15 0 - 65 05/23 Normal [place] CHEMISTRY Glucose Lvl 544 05/23 CRIT <sup>3</sup>R [facility] [place] Comment: Critical Result(s) called to Emily at 05/22/2011 23:36 by tb. Read back OK.
<sup> 4</sup>Interp retive Data: Reference Ranges : 0 - 7 days : 41 - 90 mg/dL 7 days - 150 yrs : 70 - 99 mg/dL (fasting), based on the clinical recommendatio ns of the [place] [employer]. CHEMISTRY BUN 12 7 - 22 05/23 Normal [place] CHEMISTRY Lipase Lvl 198 73 - 393 05/23 [facility] [place] CHEMISTRY Ketone 0.36 <=0.27 05/23 HI [facility] [place] Quantitative [place] HEMATOLOGY Platelet 271 133 - 450 05/23 Normal [place] HEMATOLOGY MCHC 34.3 32.0 - 02 Normal [place] 36.0 /2011 [place] HEMATOLOGY MPV 7.9 7.4 - 10.4 05/23 Normal [place] HEMATOLOGY Hgb 13.0 12.0 - 02 Normal [place] 16.0 /2011 [place] HEMATOLOGY MCH 29.5 27.0 - 02 Normal [place] 31.0 /2011 [place] HEMATOLOGY Hct 38.1 36.0 - 02 Normal [place] 48.0 /2011 [place] HEMATOLOGY MCV 86.0 81.0 - 02 Normal [facility] [place] 99.0 /2011 [place] HEMATOLOGY RBC 4.43 4.20 - 02 Normal MH [place] 5.40 /2011 [place] HEMATOLOGY WBC 5.9 3.7 - 10.4 02/ Normal [facility] [place] /2011 [place] HEMATOLOGY RDW 14.0 11.5 - 02 Normal [facility] [place] 14.5 /2011 [place] HEMATOLOGY Basophils # 0.0 0.0 - 0.2 02/ Normal [facility] [place] /2011 [place] HEMATOLOGY Lymphocytes 1.7 1.0 - 5.5 02 Normal [facility] [place] # /2011 [place] HEMATOLOGY Monocytes # 0.3 0.0 - 0.8 02/ Normal [facility] [place] /2011 [place] HEMATOLOGY Basophils 0.6 0.0 - 1.0 02/ Normal [facility] [place] /2011 [place] HEMATOLOGY Segs-Bands # 3.8 1.5 - 8.1 05/23 Normal MH [place] /2011 [place] HEMATOLOGY Eosinophils 0.1 0.0 - 0.5 05/23 Normal [facility] [place] # /2011 [place] HEMATOLOGY Monocytes 4.7 2.0 - 12.0 02 Normal [facility] [place] /2011 [place] HEMATOLOGY Lymphocytes 28.9 20.0 - 02 Normal [facility] [place] 40.0 /2011 [place] HEMATOLOGY Eosinophils 2.5 0.0 - 4.0 02/ Normal [facility] [place] /2011 [place] HEMATOLOGY Segs 63.3 45.0 - 02 Normal [facility] [place] 75.0 /2011 [place] URINALYSIS UA RBC 0-2 /HPF 0 - 2 05/23 Normal [facility] [place] (05/22/2011 23:10:00) [place] URINALYSIS UA Bacteria Occasional /HPF None Seen 05/23 Normal [facility] [place] (05/22/2011 23:10:00) [place] URINALYSIS UA Leuk Est Negative Negative 05/23 Normal [facility] [place] (05/22/2011 23:10:00) [place] URINALYSIS UA Ketones Negative Negative 05/23 NA [facility] [place] *NA* /2011 [place] (05/22/2011 23:10:00) URINALYSIS UA Glucose >=1000 mg/dL Negative 05/23 ABN MH [facility] *ABN* /2011 [place] (05/22/2011 23:10:00) URINALYSIS UA Protein Negative Negative 05/23 Normal [facility] [place] (05/22/2011 23:10:00) [place] URINALYSIS UA pH 5.0 5.0 - 8.0 05/23 Normal [facility] [place] /2011 [place] URINALYSIS UA WBC 3-5 /HPF None Seen 05/23 Normal [place] (05/22/2011 23:10:00) [place] URINALYSIS UA Sq Epi Rare /LPF Few 05/23 Normal [place] (05/22/2011 23:10:00) [place] URINALYSIS UA 0.2 0.1 - 1.0 05/23 Normal [place] Urobilinogen /2011 [place] URINALYSIS UA Nitrite Negative Negative 05/23 Normal [place] (05/22/2011 23:10:00) [place] URINALYSIS UA Bili Negative Negative 05/23 NA [place] *NA* [place] (05/22/2011 23:10:00) URINALYSIS UA Blood Negative Negative 05/23 Normal [place] (05/22/2011 23:10:00) [place] URINALYSIS Micro? Performed 05/23 Normal [place] (05/22/2011 23:10:00) [place] URINALYSIS UA Color Yellow Yellow 05/23 NA [place] *NA* /2011 [place] (05/22/2011 23:10:00) URINALYSIS UA Turbidity Clear Clear 05/23 Normal [place] (05/22/2011 23:10:00) [place] URINALYSIS UA Spec Grav <=1.030 05/23 NA [place] /2011 [place] Microbiolo Culture: 05/23 MH [place] Urine [place] URINALYSIS UA Nitrite Negative Negative 05/08 Normal [place] (05/07/2011 18:16:00) [place] URINALYSIS UA 0.2 0.1 - 1.0 05/08 Normal [place] Urobilinogen /2011 [place] URINALYSIS UA Bili Negative Negative 05/08 NA [place] *NA* [place] (05/07/2011 18:16:00) URINALYSIS UA Blood Large Negative 05/08 ABN [place] *ABN* [place] (05/07/2011 18:16:00) URINALYSIS UA RBC 6-10 /HPF 0 - 2 05/08 ABN [place] *ABN* /2011 [place] (05/07/2011 18:16:00) URINALYSIS UA Bacteria Occasional /HPF None Seen 05/08 Normal MH [place] (05/07/2011 18:16:00) [place] URINALYSIS Micro? Performed 05/08 Normal [facility] [place] (05/07/2011 18:16:00) [place] URINALYSIS UA Sq Epi Few /LPF Few 05/08 Normal [facility] [place] (05/07/2011 18:16:00) [place] URINALYSIS UA Leuk Est Negative Negative 05/08 Normal [facility] [place] (05/07/2011 18:16:00) [place] URINALYSIS UA WBC 21-50 /HPF None Seen 05/08 ABN [facility] [place] *ABN* /2011 [place] (05/07/2011 18:16:00) URINALYSIS UA Ketones Trace Negative 05/08 ABN [place] *ABN* [place] (05/07/2011 18:16:00) URINALYSIS UA Glucose >=1000 mg/dL Negative 05/08 ABN [facility] *ABN* [place] (05/07/2011 18:16:00) URINALYSIS UA Protein Negative Negative 05/08 Normal [place] (05/07/2011 18:16:00) [place] URINALYSIS UA Spec Grav 1.010 <=1.030 05/08 Normal [place] URINALYSIS UA Turbidity Clear Clear 05/08 Normal [place] (05/07/2011 18:16:00) [place] URINALYSIS UA pH 6.0 5.0 - 8.0 05/08 Normal [place] URINALYSIS UA Color Yellow Yellow 05/08 NA [place] *NA* [place] (05/07/2011 18:16:00) BEDSIDE Gluc POC 149 65 - 110 04/20 HI <sup>1</sup>I [facility] [place] GLUCOSE [facility] nterpretive [place] TESTING Data: Upper Reportable Limit: 200 mg/dL. CHEMISTRY Ketones Qual Negative Negative 04/20 Normal MH [place] (04/19/2011 22:20:00) [place] CHEMISTRY Globulin 4.1 2.0 - 4.0 04/20 HI [facility] [place] CHEMISTRY B/C Ratio 15 6 - 25 04/20 Normal [facility] [place] CHEMISTRY Calcium Lvl 9.2 8.5 - 10.5 04/20 Normal [facility] [place] /2011 [place] CHEMISTRY Chloride Lvl 96 95 - 109 04/20 Normal [facility] [place] CHEMISTRY AGAP 16.2 10.0 - 04/20 Normal [facility] [place] 20.0 /2011 [place] CHEMISTRY CO2 24 24 - 32 04/20 Normal [place] CHEMISTRY Albumin Lvl 4.0 3.5 - 5.0 04/20 Normal [facility] [place] CHEMISTRY Total 8.1 6.4 - 8.4 04/20 Normal [facility] [place] CHEMISTRY Bili Total 0.4 0.2 - 1.3 04/20 Normal [place] CHEMISTRY Alk Phos 92 39 - 136 04/20 Normal [facility] [place] CHEMISTRY AST 4 0 - 37 04/20 Normal [place] CHEMISTRY ALT 14 0 - 65 04/20 Normal [place] CHEMISTRY A/G Ratio 1.0 0.7 - 1.6 04/20 Normal [place] CHEMISTRY Glucose Lvl 499 04/20 CRIT <sup>2</sup>R [facility]ult [place] Comment: Critical Result(s) called to umer at 04/19/2011 23:31 by rca. Read back OK.
<sup> 3</sup>Interp retive Data: Reference Ranges : 0 - 7 days : 41 - 90 mg/dL 7 days - 150 yrs : 70 - 99 mg/dL (fasting), based on the clinical recommendatio ns of the [place] [employer]. CHEMISTRY Creatinine 0.8 0.5 - 1.4 04/20 Normal [place] CHEMISTRY BUN 12 7 - 22 04/20 Normal [place] CHEMISTRY Potassium 4.2 3.5 - 5.1 04/20 Normal [place] CHEMISTRY Sodium Lvl 132 135 - 145 04/20 LOW [facility] [place] CHEMISTRY Lipase Lvl 168 73 - 393 04/20 Normal [place] CHEMISTRY Amylase Lvl 70 25 - 115 04/20 Normal [place] HEMATOLOGY MPV 7.9 7.4 - 10.4 04/20 Normal [place] HEMATOLOGY Platelet 266 133 - 450 04/20 Normal [place] HEMATOLOGY RBC 4.54 4.20 - 04/20 Normal [facility] [place] 5.40 /2011 [place] HEMATOLOGY Hgb 13.3 12.0 - 04/20 Normal [facility] [place] 16.0 /2011 [place] HEMATOLOGY MCH 29.3 27.0 - 04/20 Normal [facility] [place] 31.0 /2011 [place] HEMATOLOGY MCHC 33.9 32.0 - 04/20 Normal [facility] [place] 36.0 /2011 [place] HEMATOLOGY RDW 14.0 11.5 - 04/20 Normal [facility] [place] 14.5 /2011 [place] HEMATOLOGY Hct 39.3 36.0 - 04/20 Normal [facility] [place] 48.0 /2011 [place] HEMATOLOGY MCV 86.5 81.0 - 04/20 Normal [facility] [place] 99.0 /2011 [place] HEMATOLOGY WBC 8.6 3.7 - 10.4 04/20 Normal [facility] [place] /2011 [place] HEMATOLOGY Basophils # 0.1 0.0 - 0.2 04/20 Normal [facility] [place] /2011 [place] HEMATOLOGY Eosinophils 0.1 0.0 - 0.5 04/20 Normal [facility] [place] # /2011 [place] HEMATOLOGY Eosinophils 0.9 0.0 - 4.0 04/20 Normal [facility] [place] /2011 [place] HEMATOLOGY Lymphocytes 19.9 20.0 - 04/20 LOW [facility] [place] 40.0 /2011 [place] HEMATOLOGY Monocytes 5.4 2.0 - 12.0 04/20 Normal [facility] [place] /2011 [place] HEMATOLOGY Segs 73.1 45.0 - 04/20 Normal [facility] [place] 75.0 /2011 [place] HEMATOLOGY Lymphocytes 1.7 1.0 - 5.5 04/20 Normal [facility] [place] # /2011 [place] HEMATOLOGY Monocytes # 0.5 0.0 - 0.8 04/20 Normal [facility] [place] /2011 [place] HEMATOLOGY Basophils 0.7 0.0 - 1.0 04/20 Normal [facility] [place] /2011 [place] HEMATOLOGY Segs-Bands # 6.3 1.5 - 8.1 04/20 Normal [facility] [place] /2011 [place] URINALYSIS UA Ketones Negative Negative 04/20 NA [facility] *NA* /2011 [place] (04/19/2011 20:29:00) URINALYSIS UA Bili Negative Negative 04/20 NA [facility] [place] *NA* /2011 [place] (04/19/2011 20:29:00) URINALYSIS UA Blood Negative Negative 04/20 Normal [facility] [place] (04/19/2011 20:29:00) [place] UR[place] Protein Negative Negative 04/20 Normal [facility] (04/19/2011 20:29:00) [place] UR[place] UA pH 6.0 5.0 - 8.0 04/20 Normal [facility] [place] /2011 [place] URINALYSIS UA Glucose >=1000 mg/dL Negative 04/20 ABN [facility] *ABN* /2011 [place] (04/19/2011 20:29:00) URINALYSIS Micro? Performed 04/20 Normal [place] (04/19/2011 20:29:00) [place] URIN[place]YS[place] U[place] Nitrite Negative Negative 04/20 Normal [place] (04/19/2011 20:29:00) [place] URIN[place]YSIS UA 0.2 0.1 - 1.0 04/20 Normal [place] Urobilinogen /2011 [place] URINALYSIS UA Leuk Est Negative Negative 04/20 Normal [facility] [place] (04/19/2011 20:29:00) [place] URIN[place]YSIS UA Bacteria Occasional /HPF None Seen 04/20 Normal [place] (04/19/2011 20:29:00) [place] URIN[place]YSIS UA Sq Epi Occasional /LPF Few 04/20 Normal [place] (04/19/2011 20:29:00) [place] URIN[place]YSIS UA WBC 3-5 /HPF None Seen 04/20 Normal [place] (04/19/2011 20:29:00) [place] URIN[place]YSIS UA RBC 0-2 /HPF 0 - 2 04/20 Normal [place] (04/19/2011 20:29:00) [place] URIN[place]YSIS UA Spec Grav <=1.030 04/20 NA [facility] [place] /2011 [place] URINALYSIS UA Turbidity Clear Clear 04/20 Normal [place] (04/19/2011 20:29:00) [place] URINALYSIS UA Color Yellow Yellow 04/20 NA [place] *NA* /2011 [place] (04/19/2011 20:29:00) BEDSIDE Comment1 Notify 03/26 NA [place] GLUCOSE RN/MD /2010 [place] TESTING BEDSIDE Gluc POC 203 65 - 110 03/26 HI <sup>1</sup>I [place] GLUCOSE [place] nterpretive [place] TESTING Data: Upper Reportable Limit: 200 mg/dL. CHEMISTRY AST <3 0 - 37 03/26 Normal [facility] [place] /2010 [place] CHEMISTRY Calcium Lvl 9.2 8.5 - 10.5 03/26 Normal [facility] [place] /2010 [place] CHEMISTRY AGAP 14.0 10.0 - 03/26 Normal [facility] [place] 20.0 /2010 [place] CHEMISTRY CO2 25 24 - 32 12/ Normal [facility] [place] /2010 [place] CHEMISTRY Chloride Lvl 97 95 - 109 03/26 Normal [facility] [place] /2010 [place] CHEMISTRY Potassium 4.0 3.5 - 5.1 03/26 Normal [facility] Lvl /2010 [place] CHEMISTRY Creatinine 0.7 0.5 - 1.4 03/26 Normal [facility] Lvl /2010 [place] CHEMISTRY Sodium Lvl 132 135 - 145 / LOW [facility] [place] /2010 [place] CHEMISTRY Bili Total 0.5 0.2 - 1.3 03/26 Normal [facility] [place] /2010 [place] CHEMISTRY Alk Phos 69 39 - 136 03/26 Normal [facility] [place] /2010 [place] CHEMISTRY ALT 14 0 - 65 03/26 Normal [facility] [place] /2010 [place] CHEMISTRY Albumin Lvl 3.9 3.5 - 5.0 03/26 Normal [facility] [place] /2010 [place] CHEMISTRY Total 7.8 6.4 - 8.4 03/26 Normal [place] CHEMISTRY B/C Ratio 19 6 - 25 03/26 Normal [facility] [place] /2010 [place] CHEMISTRY A/G Ratio 1.0 0.7 - 1.6 03/26 Normal [facility] [place] /2010 [place] CHEMISTRY Globulin 3.9 2.0 - 4.0 03/26 Normal [facility] [place] /2010 [place] CHEMISTRY BUN 13 7 - 22 03/26 Normal [facility] [place] /2010 [place] CHEMISTRY Glucose Lvl 410 03/26 CRIT <sup>2</sup>R [facility] esult [place] Comment: Critical Result(s) called to Dr. Wiseman at 03/25/2011 21:08 by tb. Read back OK.
<sup> 3</sup>Interp retive Data: Reference Ranges : 0 - 7 days : 41 - 90 mg/dL 7 days - 150 yrs : 70 - 99 mg/dL (fasting), based on the clinical recommendatio ns of the [place] [employer]. CHEMISTRY Lipase Lvl 171 73 - 393 03/26 Normal [facility] /2010 [place] HEMATOLOGY Hgb 12.7 12.0 - 12 Normal [facility] 16.0 /2010 [place] HEMATOLOGY RDW 14.0 11.5 - 03/26 Normal [facility] [place] 14.5 [place] HEMATOLOGY Hct 36.9 36.0 - 03/26 Normal [facility] [place] 48.0 /2010 [place] HEMATOLOGY MCV 85.5 81.0 - 03/26 Normal [facility] [place] 99.0 /2010 [place] HEMATOLOGY MCH 29.5 27.0 - 12/ Normal [place] 31.0 /2010 [place] HEMATOLOGY MCHC 34.5 32.0 - 12/ Normal [facility] [place] 36.0 /2010 [place] HEMATOLOGY Platelet 278 133 - 450 12/ Normal [place] /2010 [place] HEMATOLOGY MPV 8.2 7.4 - 10.4 12/ Normal [place] /2010 [place] HEMATOLOGY WBC 6.9 3.7 - 10.4 12/ Normal [place] /2010 [place] HEMATOLOGY RBC 4.32 4.20 - 12/ Normal [facility] [place] 5.40 /2010 [place] HEMATOLOGY Basophils 0.5 0.0 - 1.0 / Normal [facility] [place] /2010 [place] HEMATOLOGY Segs-Bands # 4.6 1.5 - 8.1 03/26 Normal [place] [facility] /2010 [place] HEMATOLOGY Lymphocytes 1.9 1.0 - 5.5 03/26 Normal [place] # /2010 [place] HEMATOLOGY Monocytes # 0.3 0.0 - 0.8 / Normal [place] /2010 [place] HEMATOLOGY Eosinophils 0.1 0.0 - 0.5 / Normal [place] # /2010 [place] HEMATOLOGY Basophils # 0.0 0.0 - 0.2 / Normal [place] /2010 [place] HEMATOLOGY Lymphocytes 27.2 20.0 - 12/ Normal [place] 40.0 /2010 [place] HEMATOLOGY Segs 66.3 45.0 - 03/26 Normal [place] 75.0 /2010 [place] HEMATOLOGY Monocytes 4.8 2.0 - 12.0 / Normal [place] /2010 [place] HEMATOLOGY Eosinophils 1.2 0.0 - 4.0 / Normal [place] /2010 [place] URINALYSIS UA Bacteria Occasional /HPF None Seen 03/26 Normal [place] (03/25/2011 20:00:00) [place] URIN[place]YSIS UA [place] Yeast Occasional /HPF None Seen 03/26 ABN [facility] *ABN* /2010 [place] (03/25/2011 20:00:00) URINALYSIS UA Sq Epi Rare /LPF Few 03/26 Normal [place] (03/25/2011 20:00:00) [place] URIN[place]YSIS UA WBC 0-2 /HPF None Seen 03/26 Normal [place] (03/25/2011 20:00:00) [place] URIN[place]YSIS UA RBC 0-2 /HPF 0 - 2 03/26 Normal [place] (03/25/2011 20:00:00) [place] URINALYSIS UA Leuk Est Negative Negative 03/26 Normal [facility] [place] (03/25/2011 20:00:00) [place] URIN[place]YS[place] Micro? Performed 03/26 Normal [place] (03/25/2011 20:00:00) [place] URINALYSIS UA Nitrite Negative Negative 03/26 Normal [place] (03/25/2011 20:00:00) [place] URIN[place]YSIS UA Blood Negative Negative 03/26 Normal [place] (03/25/2011 20:00:00) [place] URINALYSIS UA 0.2 0.1 - 1.0 03/26 Normal [place] Urobilinogen [place] URINALYSIS UA Color Yellow Yellow 03/26 NA [place] *NA* [place] (03/25/2011 20:00:00) URINALYSIS UA Turbidity Clear Clear 03/26 Normal [place] (03/25/2011 20:00:00) [place] URINALYSIS UA Spec Grav <=1.030 03/26 NA [place] URINALYSIS UA Bili Negative Negative 03/26 NA [place] *NA* [place] (03/25/2011 20:00:00) URINALYSIS UA Glucose >=1000 mg/dL Negative 03/26 ABN [facility] *ABN* [place] (03/25/2011 20:00:00) URINALYSIS UA Ketones Negative Negative 03/26 NA [place] *NA* [place] (03/25/2011 20:00:00) URINALYSIS UA pH 6.0 5.0 - 8.0 03/26 Normal [place] URINALYSIS UA Protein Negative Negative 03/26 Normal [place] (03/25/2011 20:00:00) [place] BEDSIDE Gluc POC 227.0 65 - 110 02/11 HI <sup>1</sup>I [place] GLUCOSE [place] nterpretive [place] TESTING Data: Upper Reportable Limit: 200 mg/dL. CHEMISTRY CK MB Index <0.6 0.0 - 2.5 02/11 Normal [facility] [place] CHEMISTRY CK MB <0.5 0.5 - 3.6 02/11 Normal [facility] [place] CHEMISTRY Total CK 77.0 12 - 191 02/11 Normal [facility] [place] CHEMISTRY Total CK 77.0 12 - 191 02/11 Normal [facility] [place] CHEMISTRY Troponin-I <0.02 0.00 - 02/11 Normal [facility] [place] 0.40 [place] BEDSIDE Gluc POC 394.0 65 - 110 02/11 HI <sup>2</sup>I [facility] GLUCOSE [place] nterpretive [place] TESTING Data: Upper Reportable Limit: 200 mg/dL. CHEMISTRY Magnesium 1.5 1.8 - 2.4 02/11 LOW [facility] Lvl [place] CHEMISTRY Glucose Lvl 222.0 02/11 NA <sup>4</sup>I [facility] [place] nterpretive [place] Data: Reference Ranges : 0 - 7 days : 41 - 90 mg/dL 7 days - 150 yrs : 70 - 99 mg/dL (fasting), based on the clinical recommendatio ns of the [place] [employer]. CHEMISTRY BUN 11.0 7 - 22 02/11 Normal [facility] [place] CHEMISTRY Calcium Lvl 7.8 8.5 - 10.5 02/11 LOW [facility] [place] CHEMISTRY AGAP 13.7 10.0 - 02/11 Normal [facility] [place] 20.0 [place] CHEMISTRY Creatinine 0.6 0.5 - 1.4 02/11 Normal [facility] [place] Lvl [place] CHEMISTRY Sodium Lvl 137.0 135 - 145 02/11 Normal [facility] [place] CHEMISTRY Potassium 3.7 3.5 - 5.1 02/11 Normal [facility] [place] Lvl [place] CHEMISTRY Chloride Lvl 103.0 95 - 109 02/11 Normal [facility] [place] CHEMISTRY CO2 24.0 24 - 32 02/11 Normal [facility] [place] CHEMISTRY Troponin-I <0.02 0.00 - 02/11 Normal [facility] [place] 0.40 [place] CHEMISTRY Total CK 71.0 12 - 191 02/11 Normal [facility] [place] CHEMISTRY Total CK 71.0 12 - 191 02/11 Normal [facility] [place] HEMATOLOGY MPV 7.8 7.4 - 10.4 02/11 Normal [facility] [place] HEMATOLOGY RDW 14.1 11.5 - 02/11 Normal [facility] [place] 14.5 /2010 [place] HEMATOLOGY WBC 6.8 3.7 - 10.4 02/11 Normal [facility] [place] HEMATOLOGY Hgb 11.8 12.0 - 02/11 LOW [facility] 16.0 /2010 [place] HEMATOLOGY RBC 4.11 4.20 - 02/11 LOW [facility] 5.40 /2010 [place] HEMATOLOGY Hct 35.3 36.0 - 02/11 LOW [facility] 48.0 /2010 [place] HEMATOLOGY MCH 28.7 27.0 - 02/11 Normal [facility] [place] 31.0 /2010 [place] HEMATOLOGY MCV 85.7 81.0 - 02/11 Normal [facility] [place] 99.0 /2010 [place] HEMATOLOGY Platelet 193.0 133 - 450 02/11 Normal [facility] [place] /2010 [place] HEMATOLOGY MCHC 33.5 32.0 - 02/11 Normal [facility] [place] 36.0 /2010 [place] HEMATOLOGY Lymphocytes 26.3 20.0 - 02/11 Normal [facility] [place] 40.0 /2010 [place] HEMATOLOGY Segs 65.8 45.0 - 02/11 Normal [facility] [place] 75.0 /2010 [place] HEMATOLOGY Monocytes 6.1 2.0 - 12.0 02/11 Normal [facility] [place] HEMATOLOGY Eosinophils 1.2 0.0 - 4.0 02/11 Normal [facility] [place] /2010 [place] HEMATOLOGY Basophils 0.6 0.0 - 1.0 02/11 Normal [facility] [place] /2010 [place] HEMATOLOGY Segs-Bands # 4.5 1.5 - 8.1 02/11 Normal [facility] [place] [facility] /2010 [place] HEMATOLOGY Lymphocytes 1.8 1.0 - 5.5 02/11 Normal [facility] [place] # /2010 [place] HEMATOLOGY Monocytes # 0.4 0.0 - 0.8 02/11 Normal [place] HEMATOLOGY Basophils # 0.0 0.0 - 0.2 02/11 Normal [place] /2010 [place] HEMATOLOGY Eosinophils 0.1 0.0 - 0.5 02/11 Normal [facility] [place] # /2010 [place] BEDSIDE Gluc POC 151.0 65 - 110 02/11 HI <sup>3</sup>I [facility] GLUCOSE [place] nterpretive [place] TESTING Data: Upper Reportable Limit: 200 mg/dL. URINALYSIS UA Glucose >=1000 mg/dL >Negative 02/11 ABN [facility] *ABN* /2010 [place] (02/10/2011 22:26:00) ?? URINALYSIS UA Ketones Negative mg/dL >Negative 02/11 NA M [facility] [place] *NA* /2010 [place] (02/10/2011 22:26:00) ?? URINALYSIS UA pH 6.5 5.0 - 8.0 02/11 Normal [facility] [place] /2010 [place] URINALYSIS UA Protein Negative mg/dL >Negative 02/11 Normal M [facility] [place] (02/10/2011 22:26:00) ?? /2010 [place] URINALYSIS UA Nitrite Negative >Negative 02/11 Normal [facility] [place] (02/10/2011 22:26:00) ?? [place] URINALYSIS UA Leuk Est Negative >Negative 02/11 Normal [facility] (02/10/2011 22:26:00) ?? /2010 [place] URINALYSIS UA 0.2 0.1 - 1.0 02/11 Normal [facility] [place] Urobilinogen /2010 [place] URINALYSIS UA Blood Negative >Negative 02/11 Normal [facility] (02/10/2011 22:26:00) ?? [place] URINALYSIS UA Bili Negative >Negative 02/11 NA [facility] *NA* /2010 [place] (02/10/2011 22:26:00) ?? URINALYSIS UA Turbidity Clear >Clear 02/11 Normal [facility] (02/10/2011 22:26:00) ?? [place] URINALYSIS UA Spec Grav 1.01 <<=1.030 02/11 Normal [facility] [place] /2010 [place] URINALYSIS UA Color Yellow >Yellow 02/11 NA [facility] *NA* /2010 [place] (02/10/2011 22:26:00) ?? URINALYSIS UA RBC 0-2 /HPF >0 - 2 02/11 Normal [facility] (02/10/2011 22:26:00) ?? [place] URINALYSIS UA WBC 6-10 /HPF >None Seen 02/11 ABN [facility] *ABN* /2010 [place] (02/10/2011 22:26:00) ?? URINALYSIS UA Sq Epi Few /LPF >Few 02/11 Normal [facility] (02/10/2011 22:26:00) ?? [place] URINALYSIS UA Bacteria Few /HPF >None Seen 02/11 Normal [facility] [place] (02/10/2011 22:26:00) ?? [place] URINALYSIS UA [place] Yeast Occasional /HPF >None Seen 02/11 ABN [facility] *ABN* /2010 (02/10/2011 22:26:00) ?? URINALYSIS Micro? Performed 02/11 Normal [facility] (02/10/2011 22:26:00) ?? /2010 [place] CHEMISTRY S Preg Negative >Negative 02/11 NA [facility] *NA* /2010 [place] (02/10/2011 22:03:00) ?? CHEMISTRY CK MB <0.5 0.5 - 3.6 02/11 Normal [facility] [place] CHEMISTRY Troponin-I <0.02 0.00 - 02/11 Normal [facility] [place] 0.40 [place] CHEMISTRY AST 7.0 0 - 37 02/11 Normal [facility] [place] CHEMISTRY Albumin Lvl 4.0 3.5 - 5.0 02/11 Normal [facility] [place] CHEMISTRY Total 7.5 6.4 - 8.4 02/11 Normal [facility] [place] CHEMISTRY A/G Ratio 1.1 0.7 - 1.6 02/11 Normal [facility] [place] CHEMISTRY Globulin 3.5 2.0 - 4.0 02/11 Normal [facility] [place] CHEMISTRY ALT 14.0 0 - 65 02/11 Normal [facility] [place] CHEMISTRY Bili Total 0.3 0.2 - 1.3 02/11 Normal [facility] [place] CHEMISTRY Alk Phos 69.0 39 - 136 02/11 Normal [facility] [place] CHEMISTRY CO2 22.0 24 - 32 02/11 LOW [facility] [place] CHEMISTRY B/C Ratio 20.0 6 - 25 02/11 Normal [facility] [place] CHEMISTRY Chloride Lvl 96.0 95 - 109 02/11 Normal [facility] [place] CHEMISTRY Calcium Lvl 8.7 8.5 - 10.5 02/11 Normal [facility] [place] CHEMISTRY AGAP 17.3 10.0 - 02/11 Normal [facility] [place] 20.0 [place] CHEMISTRY Glucose Lvl 417.0 02/11 CRIT <sup>5</sup>R [facility] ug esult [place] Comment: Critical Result(s) called to Marty[place]_ at 02/10/2011 22:36 by rvs. Read back OK.
<sup> 6</sup>Interp retive Data: Reference Ranges : 0 - 7 days : 41 - 90 mg/dL 7 days - 150 yrs : 70 - 99 mg/dL (fasting), based on the clinical recommendatio ns of the [place] [employer]. CHEMISTRY Sodium Lvl 131.0 135 - 145 02/11 LOW [place] CHEMISTRY Creatinine 0.6 0.5 - 1.4 02/11 Normal [place] Lvl [place] CHEMISTRY BUN 12.0 7 - 22 02/11 Normal [place] CHEMISTRY Potassium 4.3 3.5 - 5.1 02/11 Normal [place] Lvl [place] CHEMISTRY Ketones Qual Negative >Negative 02/11 Normal [facility] (02/10/2011 22:03:00) ?? [place] HEMATOLOGY Segs-Bands # 3.9 1.5 - 8.1 02/11 Normal [place] HEMATOLOGY Lymphocytes 2.0 1.0 - 5.5 02/11 Normal [place] # /2010 [place] HEMATOLOGY Basophils 0.5 0.0 - 1.0 02/11 Normal [place] HEMATOLOGY Monocytes # 0.4 0.0 - 0.8 02/11 Normal [place] HEMATOLOGY Eosinophils 0.1 0.0 - 0.5 02/11 Normal [place] # [place] HEMATOLOGY Segs 60.9 45.0 - 02/11 Normal [place] 75.0 [place] HEMATOLOGY Lymphocytes 31.7 20.0 - 02/11 Normal [place] 40.0 [place] HEMATOLOGY Eosinophils 1.2 0.0 - 4.0 02/11 Normal [place] HEMATOLOGY Monocytes 5.7 2.0 - 12.0 02/11 Normal [place] /2010 [place] HEMATOLOGY Basophils # 0.0 0.0 - 0.2 02/11 Normal [place] HEMATOLOGY PT 13.9 12.0 - 02/11 Normal [place] 14.7 [place] HEMATOLOGY PTT 28.4 22.9 - 02/11 Normal <sup>9</sup>I [place] 35.8 /2010 nterpretive [place] Data: Heparin Therapeutic Range: 57 - 92 Seconds HEMATOLOGY INR 1.07 0.85 - 02/11 Normal <sup>7</sup>I [place] 1.17 nterpretive [place] Data: RECOMMENDED RANGES FOR PROTIME INR: 2.0-3.0 for most medical and surgical thromboemboli c states. 2.5-3.5 for artificial heart valves and recurrent embolism. INR SHOULD BE USED ONLY FOR PATIENTS ON STABLE ANTICOAGULANT THERAPY. HEMATOLOGY MCHC 33.7 32.0 - 02/11 Normal [place] 36.0 /2010 [place] HEMATOLOGY RDW 14.3 11.5 - 02/11 Normal [place] 14.5 [place] HEMATOLOGY Platelet 224.0 133 - 450 02/11 Normal [place] /2010 [place] HEMATOLOGY MPV 7.9 7.4 - 10.4 02/11 Normal [place] /2010 [place] HEMATOLOGY MCV 85.9 81.0 - 02/11 Normal [place] 99.0 [place] HEMATOLOGY RBC 4.43 4.20 - 02/11 Normal [place] 5.40 /2010 [place] HEMATOLOGY Hct 38.1 36.0 - 02/11 Normal [place] 48.0 /2010 [place] HEMATOLOGY Hgb 12.8 12.0 - 02/11 Normal [place] 16.0 /2010 [place] HEMATOLOGY MCH 28.9 27.0 - 02/11 Normal [place] 31.0 /2010 [place] HEMATOLOGY WBC 6.5 3.7 - 10.4 02/11 Normal [place] /2010 [place] HEMATOLOGY D-Dimer 1.1 02/11 NA <sup>8</sup>I [place] nterpretive [place] Data: In DIC, quantitative D-Dimer is generally greater than 0.66 ug/mL FEU. Values of quantitative D-Dimer less than 0.40 ug/mL FEU have been reported to be associated with a low probability of deep vein thrombosis/pu lmonary embolism. This test alone should not be used to rule out DVT/PE. BEDSIDE Gluc POC 175.0 65 - 110 01/15 HI <sup>1</sup>I [place] GLUCOSE [facility] nterpretive [place] TESTING Data: Upper Reportable Limit: 200 mg/dL. BEDSIDE Comment1 Notify 01/15 NA [place] GLUCOSE RN/MD [place] TESTING BEDSIDE Comment1 Notify 01/15 NA [place] GLUCOSE RN/MD [place] TESTING BEDSIDE Gluc POC 88.0 65 - 110 01/15 Normal <sup>2</sup>I [place] GLUCOSE [facility] nterpretive [place] TESTING Data: Upper Reportable Limit: 200 mg/dL. BEDSIDE Comment1 Notify 01/15 NA [place] GLUCOSE RN/MD [place] TESTING BEDSIDE Gluc POC 70.0 65 - 110 01/15 Normal <sup>3</sup>I [place] GLUCOSE [facility] nterpretive [place] TESTING Data: Upper Reportable Limit: 200 mg/dL. CHEMISTRY CK MB Index <0.6 0.0 - 2.5 01/15 Normal [place] CHEMISTRY CK MB <0.5 0.5 - 3.6 01/15 Normal [place] CHEMISTRY Troponin-I <0.02 0.00 - 01/15 Normal [facility] [place] 0.40 /2010 [place] CHEMISTRY Total CK 88.0 12 - 191 01/15 Normal [place] CHEMISTRY Creatinine 0.6 0.5 - 1.4 01/15 Normal [place] Lvl [place] CHEMISTRY Potassium 3.4 3.5 - 5.1 01/15 LOW [facility] [place] Lvl [place] CHEMISTRY Sodium Lvl 141.0 135 - 145 01/15 Normal [place] CHEMISTRY BUN 13.0 7 - 22 01/15 Normal [place] CHEMISTRY CO2 25.0 24 - 32 01/15 Normal [place] CHEMISTRY Calcium Lvl 8.0 8.5 - 10.5 01/15 LOW [place] CHEMISTRY AGAP 18.4 10.0 - 10 Normal [place] 20.0 /2010 [place] CHEMISTRY Chloride Lvl 101.0 95 - 109 01/15 Normal [place] CHEMISTRY Glucose Lvl 122.0 01/15 NA <sup>4</sup>I MH S nterpretive [place] Data: Reference Ranges : 0 - 7 days : 41 - 90 mg/dL 7 days - 150 yrs : 70 - 99 mg/dL (fasting), based on the clinical recommendatio ns of the [place] [employer]. CHEMISTRY LDL 96.0 0 - 129 01/15 Normal [place] CHEMISTRY CHD Risk 3.8 3.90 - 10 LOW [facility] [place] 5.80 /2010 [place] CHEMISTRY HDL 45.0 >>=35 01/15 Normal [place] CHEMISTRY Trig 150.0 0 - 200 01/15 Normal [place] CHEMISTRY Chol 171.0 120 - 200 01/15 Normal [place] CHEMISTRY CK MB <0.5 0.5 - 3.6 01/15 Normal [place] CHEMISTRY CK MB Index <0.6 0.0 - 2.5 01/15 Normal [place] CHEMISTRY Total CK 83.0 12 - 191 01/15 Normal [place] CHEMISTRY Troponin-I <0.02 0.00 - 01/15 Normal [place] 0.40 /2010 [place] CHEMISTRY U Preg Negative >Negative 01/14 Normal [facility] (01/14/2011 16:36:00) ?? /2010 [place] CHEMISTRY CK MB Index <0.6 0.0 - 2.5 01/14 Normal [place] CHEMISTRY BNP 13.0 <<=100 01/14 Normal <sup>7</sup>I [facility] nterpretive [place] Data: Elevated results are in line with increasing severity of congestive heart failure. Minor elevations between 100 and 300 may be seen with Myocardial Ischemia, Sodium retaining drugs, and compensated/t reated heart failure. CHEMISTRY AST <3.0 0 - 37 01/14 Normal [place] CHEMISTRY Bili Total 0.5 0.2 - 1.3 01/14 Normal [place] CHEMISTRY Albumin Lvl 3.8 3.5 - 5.0 01/14 Normal [place] CHEMISTRY ALT 17.0 0 - 65 01/14 Normal [place] CHEMISTRY Alk Phos 71.0 39 - 136 01/14 Normal [place] CHEMISTRY Potassium 3.8 3.5 - 5.1 01/14 Normal [place] L[place] CHEMISTRY Chloride Lvl 100.0 95 - 109 01/14 Normal [place] CHEMISTRY CO2 22.0 24 - 32 01/14 LOW [place] CHEMISTRY AGAP 14.8 10.0 - 01/14 Normal [place] 20.0 /2011 [place] CHEMISTRY Calcium Lvl 8.6 8.5 - 10.5 01/14 Normal [place] CHEMISTRY Sodium Lvl 133.0 135 - 145 01/14 LOW [place] CHEMISTRY Globulin 3.6 2.0 - 4.0 01/14 Normal [place] CHEMISTRY A/G Ratio 1.1 0.7 - 1.6 01/14 Normal [place] CHEMISTRY B/C Ratio 11.0 6 - 25 01/14 Normal [place] CHEMISTRY Total 7.4 6.4 - 8.4 01/14 Normal [place] CHEMISTRY Glucose Lvl 478.0 01/14 CRIT <sup>5</sup>R S ug esult [place] Comment: Critical Result(s) called to [place] at 01/14/2011 16:22 by . Read back OK.
<sup> 6</sup>Interp retive Data: Reference Ranges : 0 - 7 days : 41 - 90 mg/dL 7 days - 150 yrs : 70 - 99 mg/dL (fasting), based on the clinical recommendatio ns of the [place] [employer]. CHEMISTRY BUN 9.0 7 - 22 01/14 Normal [facility] [place] /2010 [place] CHEMISTRY Creatinine 0.8 0.5 - 1.4 01/14 Normal [place] Lvl /2010 [place] CHEMISTRY Troponin-I <0.02 0.00 - 01/14 Normal [place] 0.40 /2010 [place] CHEMISTRY CK MB <0.5 0.5 - 3.6 01/14 Normal [place] /2010 [place] CHEMISTRY Total CK 78.0 12 - 191 01/14 Normal [place] /2010 [place] HEMATOLOGY Monocytes # 0.3 0.0 - 0.8 01/14 Normal [place] /2010 [place] HEMATOLOGY Lymphocytes 1.7 1.0 - 5.5 01/14 Normal [place] # /2010 [place] HEMATOLOGY Segs-Bands # 3.5 1.5 - 8.1 01/14 Normal [place] /2010 [place] HEMATOLOGY Basophils 0.9 0.0 - 1.0 01/14 Normal [facility] [place] /2010 [place] HEMATOLOGY Eosinophils 0.9 0.0 - 4.0 01/14 Normal [place] /2010 [place] HEMATOLOGY Basophils # 0.0 0.0 - 0.2 01/14 Normal [place] /2010 [place] HEMATOLOGY Eosinophils 0.1 0.0 - 0.5 01/14 Normal [place] # /2010 [place] HEMATOLOGY Lymphocytes 30.7 20.0 - 01/14 Normal [place] 40.0 /2010 [place] HEMATOLOGY Segs 63.0 45.0 - 01/14 Normal [place] 75.0 /2010 [place] HEMATOLOGY Monocytes 4.5 2.0 - 12.0 01/14 Normal [place] /2010 [place] HEMATOLOGY RDW 14.6 11.5 - 01/14 HI [place] 14.5 /2010 [place] HEMATOLOGY MCHC 34.0 32.0 - 01/14 Normal [place] 36.0 /2010 [place] HEMATOLOGY MPV 8.0 7.4 - 10.4 01/14 Normal [place] /2010 [place] HEMATOLOGY Platelet 231.0 133 - 450 01/14 Normal [place] /2010 [place] HEMATOLOGY MCH 28.8 27.0 - 01/14 Normal [place] 31.0 /2010 [facility] HEMATOLOGY Hgb 13.2 12.0 - 10 Normal [place] 16.0 /2010 [facility] HEMATOLOGY RBC 4.6 4.20 - 01/14 Normal [place] 5.40 /2010 [facility] HEMATOLOGY Hct 38.9 36.0 - 01/14 Normal [place] 48.0 /2010 [facility] HEMATOLOGY MCV 84.6 81.0 - 01/14 Normal [place] 99.0 /2010 [facility] HEMATOLOGY WBC 5.6 3.7 - 10.4 10 Normal [facility] /2010 [facility] HEMATOLOGY PT 13.6 12.0 - 01/14 Normal [place] 14.7 /2010 [facility] HEMATOLOGY PTT 30.2 22.9 - 10 Normal <sup>10</sup> Sean r 35.8 Interpretive [place] Data: Heparin Therapeutic Range: 57 - 92 Seconds HEMATOLOGY INR 1.04 0.85 - 01/14 Normal <sup>8</sup>I [facility] r 1.17 nterpretive [facility] Data: RECOMMENDED RANGES FOR PROTIME INR: 2.0-3.0 for most medical and surgical thromboemboli c states. 2.5-3.5 for artificial heart valves and recurrent embolism. INR SHOULD BE USED ONLY FOR PATIENTS ON STABLE ANTICOAGULANT THERAPY. HEMATOLOGY D-Dimer 1.5 01/14 NA <sup>9</sup>I [facility] r nterpretive [facility] Data: In DIC, quantitative D-Dimer is generally greater than 0.66 ug/mL FEU. Values of quantitative D-Dimer less than 0.40 ug/mL FEU have been reported to be associated with a low probability of deep vein thrombosis/pu lmonary embolism. This test alone should not be used to rule out DVT/PE. Pathology Reports No Data Provided for This Section Diagnostic Reports Report Value Date Source Brain wo contrast CT I reviewed the examination a nd the images, and I concur with the interpretation. 02/25/2017 [facility] Clinical Indication: Headache, fever, neck pain Comparison: 02/10/2011 TECHNIQUE: CT images were ob tained from the foramen magnum to the vertex without the use of intravenous contrast on a multidetector CT. Coronal and sagittal reconstructions were obtained. CT radiation dose DLP: 733 mGy-cm FINDINGS: BRAIN PARENCHYMA: Normal mazariegos-white interfaces , sulci and gyri. No focal mass lesions on this noncontrast head CT. No mass effect, midline shift or edema. No intra-axial or extra-axial fluid collections, intraventricular or intraparenchymal hemorrh age. Pineal, brainstem, cerebellum and skull base regions appear unremarkable. Empty sella noted. VENTRICLES: Lateral ventricles, third an d fourth ventricles appear unremarkable. Basilar cisterns are normal. ORBITS, MASTOIDS AND PARANASAL SINUSES: -Visualized orbits/retro-orbital spaces are with in normal limits. - The paranasal sinuses are unremarkable. The ma stoid air cells are clear. SKULL: No acute osseous abnormalities. No focal or asy mmetric scalp swelling. If there is further concern for intracranial pathology or acute stroke, MRI of the brain may be performed for complete assessment. IMPRESSION: 1. No acute intracranial ab normality. No mass, hemorrhage, or subacute stroke. SL: [id number] Spine cervical wo CT cervical spine without contrast 02/25/2017 [facility] contrast CT Clinical Indication: - neck pain with left side d radiculopathy. Comparison: CT neck soft tissues 10/12/2010 Technique: Multi-detector CT imaging of the cervical spine is performed. Coronal and sagittal reconstructions were obtained. CT imaging was performed with exposure control parameters to reduce radiation dose. CT Radiation Dose DLP 370 mGy-cm FINDINGS: There is normal alignment of the cervical spine. There are no fractures or subluxations. The craniocervical junction is normal. The atlanto-dental alignment appears unremarkable. The facet joint, spino laminar and spinous process alignment are normal . The prevertebral soft tissues are normal. IMPRESSION: 1. No fractures or subluxati ons of the cervical spine. Follow-up MRI is recommended if patient's symptoms persist or worsen. SL: [id number] Abdomen/Pelvis w IV PROCEDURE: CT ABDOMEN AND PELVIS WITH CONTRA ST 01/24/2017 [facility] contrast CT Clinical Indication: Acute l eft upper quadrant abdominal pain. History of diverticulitis. Comparison: None. TECHNIQUE: Helical imaging w as performed from the diaphragm through the pubic symphysis with multiplanar reformations obtained. IV CONTRAST: 100 mL Omnipaque 300 GI CONTRAST: None. DLP: 231 mGy-cm FINDINGS: LOWER CHEST: The visualized portions of the lung bases are clear. PERITONEUM: No free intraperitoneal fluid or air . RETROPERITONEUM: No adenopathy. The aorta is nor mal in caliber. SOLID ORGANS: The gallbladde r has been removed. Minimal central intrahepatic dilatation may relate to post cholecystectomy change. Common bile ductal measures 10 mm diameter. Spleen, pancreas, bilateral adrenal glands, and bilateral kidneys are justina l. PELVIS: Bladder is filled with fluid. The uterus is not visualized. BOWELS/APPENDIX: No abnormal ly dilated small or large bowel loops. Right lower quadrant surgical clips approximately from prior appendectomy. Few colonic diverticula may be present. MUSCULOSKELETAL: No suspicious osseous abnormali ty identified. IMPRESSION: 1. No acute findings in the abdomen or pelvis. 2. Biliary dilatation may be related to post cho lecystectomy change. SL: DAVIDA Foot series DX RIGHT FOOT 3 VIEW 12/26/2016 [facility] HISTORY: Toe injury. No comparisons. FINDINGS: There is an oblique fracture at the proximal phalanx of the right 4th toe. Fracture fragments are in near-anatomic alignment. No other fracture demonstrated. Plantar calcaneal spur noted incidentally. IMPRESSION: Oblique fracture at the prox imal phalanx of the right 4th toe in near-anatomic alignment. SL: CARYL Consultation Notes No Data Provided for This Section Discharge Summaries No Data Provided for This Section History and Physicals No Data Provided for This Section Vital Signs Vital Sign Value Date Comments Source Systolic (mm Hg) 111 02/26/2017 [facility] Diastolic (mm Hg) 64 02/26/2017 [facility] Respitory Rate 16 02/26/2017 [facility] Temperature Oral (F) 97.6 F 02/26/2017 [facility] Heart Rate 85 02/26/2017 [facility] Respitory Rate 16 02/26/2017 [facility] Systolic (mm Hg) 114 02/26/2017 [facility] Diastolic (mm Hg) 66 02/26/2017 [facility] Heart Rate 82 02/26/2017 [facility] Temperature Oral (F) 98.8 F 02/26/2017 [facility] Weight 49.545 02/26/2017 [facility] BMI Calculated 18.75 02/26/2017 [facility] Height 162.56 cm 02/26/2017 [facility] Systolic (mm Hg) 109 02/26/2017 [facility] Diastolic (mm Hg) 65 02/26/[facility] Heart Rate 84 02/26/2017 [facility] Respitory Rate 14 02/26/2017 [facility] Respitory Rate 18 02/25/2017 [facility] Systolic (mm Hg) 114 02/25/2017 [facility] Diastolic (mm Hg) 63 02/25/2017 [facility] Temperature Oral (F) 98.2 F 02/25/2017 [facility] Heart Rate 78 02/25/2017 [facility] BMI Calculated 18.75 02/25/2017 [facility] Weight 49.545 02/25/2017 [facility] Height 162.56 cm 02/25/2017 [facility] Heart Rate 77 02/25/2017 [facility] Respitory Rate 18 02/25/2017 [facility] Temperature Oral (F) 97.8 F 02/25/2017 [facility] Systolic (mm Hg) 147 02/25/2017 [facility] Diastolic (mm Hg) 80 02/25/2017 [facility] Weight 49.659 02/25/2017 [facility] Height 167.64 cm 02/25/2017 [facility] Temperature Oral (F) 97.8 F 02/25/[address] [facility] BMI Calculated 17.67 02/25/2017 [facility] Systolic (mm Hg) 145 02/25/2017 [facility] Diastolic (mm Hg) 80 02/25/2017 [facility] Respitory Rate 18 02/25/2017 [facility] Heart Rate 77 02/25/2017 [facility] Temperature Oral (F) 98.5 F 01/26/[facility] Heart Rate 87 01/26/2017 [facility] Respitory Rate 20 01/26/2017 [facility] Systolic (mm Hg) 116 01/26/2017 [facility] Diastolic (mm Hg) 69 01/26/2017 [facility] Heart Rate 79 01/26/2017 [facility] Respitory Rate 18 01/26/2017 [facility] Temperature Oral (F) 98.4 F [facility]/26/[facility] Systolic (mm Hg) 129 01/26/2017 [facility] Diastolic (mm Hg) 80 01/26/2017 [facility] Temperature Oral (F) 98.1 F 01/26/2017 [facility] Heart Rate 78 01/26/2017 [facility] Systolic (mm Hg) 120 01/26/2017 [facility] Diastolic (mm Hg) 69 01/26/2017 [facility] Respitory Rate 20 01/26/2017 [facility] Height 157.48 cm 01/25/2017 [facility] Weight 51.449 01/25/2017 [facility] BMI Calculated 20.75 01/25/2017 [facility] Weight 52.273 01/25/2017 [facility] BMI Calculated 19.78 01/25/2017 [facility] Height 162.56 cm 01/25/2017 [facility] Systolic (mm Hg) 121 12/27/2016 [facility] Diastolic (mm Hg) 81 12/27/2016 [facility] Respitory Rate 16 12/27/2016 [facility] Heart Rate 82 12/27/2016 [facility] Temperature Oral (F) 98.3 F 12/27/2016 [facility] Temperature Oral (F) 98.4 F 12/27/2016 [facility] Respitory Rate 18 12/27/2016 [facility] Systolic (mm Hg) 126 12/27/2016 [facility] Diastolic (mm Hg) 81 12/27/2016 [facility] BMI Calculated 18.92 12/27/2016 [facility] Weight 50 12/27/2016 [facility] Heart Rate 89 12/27/2016 [facility] Height 162.56 cm 12/27/2016 [facility] Height 162.56 cm 02/06/2012 [facility] Weight 47.273 02/06/2012 [facility] Height 162.56 cm 11/29/2011 [place] Weight 50.000 11/29/2011 [place] Height 162.56 cm 10/25/2011 [place] Weight 54.545 10/25/2011 [facility] Height 162.56 cm 05/23/2011 [facility] Weight 50.000 05/23/2011 [facility] Temperature Oral (F) 98.5 F 05/08/2011 [place] Diastolic (mm Hg) 57 05/08/2011 [place] [facility] Systolic (mm Hg) 107 05/08/2011 [place] Heart Rate 57 05/08/2011 [place] Respitory Rate 16 05/08/2011 [facility] [place] Weight 50.000 05/08/2011 [facility] [place] Height 162.56 cm 05/08/2011 [place] Temperature Oral (F) 98.6 F 05/08/2011 [facility] [place] Diastolic (mm Hg) 70 05/08/2011 [facility] [place] [facility] Systolic (mm Hg) 127 05/08/2011 [facility] [place] Heart Rate 83 05/08/2011 [facility] [place] Respitory Rate 16 05/08/2011 [facility] [place] Respitory Rate 18 04/20/2011 [place] Heart Rate 79 04/20/2011 [facility] [place] Diastolic (mm Hg) 75 04/20/2011 [facility] [place] Systolic (mm Hg) 119 04/20/2011 [facility] [place] Diastolic (mm Hg) 97 04/20/2011 [facility] [place] Heart Rate 80 04/20/2011 [facility] [place] Systolic (mm Hg) 148 04/20/2011 [facility] [place] Respitory Rate 20 04/20/2011 [place] Weight 50.000 04/20/2011 [facility] [place] Systolic (mm Hg) 122 04/20/2011 [place] Temperature Oral (F) 98.0 F 04/20/2011 [place] Respitory Rate 18 04/20/2011 [place] Heart Rate 79 04/20/2011 [facility] [place] Diastolic (mm Hg) 75 04/20/2011 [place] [facility] Temperature Oral (F) 98.0 F 03/26/2011 [place] Respitory Rate 18 03/26/2011 [place] Heart Rate 69 03/26/2011 [facility] [place] Systolic (mm Hg) 112 03/26/2011 [place] Diastolic (mm Hg) 60 03/26/2011 [facility] [place] [facility] Height 160.02 cm 03/26/2011 [facility] [place] Weight 53.636 03/26/2011 [place] Temperature Oral (F) 99.0 F 03/26/2011 [place] Diastolic (mm Hg) 67 03/26/2011 [facility] [place] [facility] Systolic (mm Hg) 115 03/26/2011 [facility] [place] Respitory Rate 16 03/26/2011 [place] Heart Rate 75 03/26/2011 [facility] [place] Diastolic (mm Hg) 51.0 02/11/2011 [facility] [place] Respitory Rate 14.0 02/11/2011 [facility] [place] Systolic (mm Hg) 100.0 02/11/2011 [facility] [place] Heart Rate 59.0 02/11/2011 [place] Temperature Oral (F) 98.1 F 02/11/2011 [facility] [place] Diastolic (mm Hg) 54.0 02/11/2011 [place] [facility] Systolic (mm Hg) 102.0 02/11/2011 [place] Temperature Oral (F) 97.5 F 02/11/2011 [place] Heart Rate 61.0 02/11/2011 [facility] [place] Respitory Rate 16.0 02/11/2011 [place] Height 162.56 cm 02/11/2011 [facility] [place] Weight 56.96 02/11/2011 [facility] [place] Respitory Rate 18.0 02/11/2011 [place] Temperature Oral (F) 98.0 F 02/11/2011 [place] Heart Rate 61.0 02/11/2011 [place] Systolic (mm Hg) 111.0 02/11/2011 [place] Diastolic (mm Hg) 61.0 02/11/2011 [place] [facility] Weight 52.273 02/11/2011 [place] Height 162.56 cm 02/11/2011 [place] Diastolic (mm Hg) 59.0 01/15/2011 [place] [facility] Systolic (mm Hg) 105.0 01/15/2011 [place] Temperature Oral (F) 97.0 F 01/15/2011 [place] Heart Rate 59.0 01/15/2011 [place] Respitory Rate 18.0 01/15/2011 [facility] Temperature Oral (F) 97.2 F 01/15/2011 [place] Respitory Rate 18.0 01/15/2011 [place] Heart Rate 71.0 01/15/2011 [place] Diastolic (mm Hg) 59.0 01/15/2011 [place] Systolic (mm Hg) 106.0 01/15/2011 [place] Respitory Rate 18.0 01/15/2011 [place] Systolic (mm Hg) 110.0 01/15/2011 [place] Heart Rate 62.0 01/15/2011 [place] Temperature Oral (F) 97.9 F 01/15/2011 [place] Diastolic (mm Hg) 58.0 01/15/2011 [place] [facility] Height 162.56 cm 01/15/2011 [place] Weight 56.818 01/15/2011 [place] Height 162.56 cm 01/14/2011 [place] Weight 50.0 01/14/2011 [place] Systolic (mm Hg) 115.0 12/22/2010 [place] Diastolic (mm Hg) 78.0 12/22/2010 [place] [facility] Peripheral Pulse Rate 74.0 12/22/2010 [place] Respitory Rate 16.0 12/22/2010 [facility] Height 162.56 cm 12/22/2010 [facility] Weight 52.273 12/22/2010 [facility] Temperature Oral (F) 98.2 F 12/22/2010 [place] Respitory Rate 16.0 12/22/2010 [place] Peripheral Pulse Rate 75.0 12/22/2010 [place] Diastolic (mm Hg) 77.0 12/22/2010 [place] [facility] Systolic (mm Hg) 125.0 12/22/2010 [place] Encoun[place] Location Location Encounter Encounter Reason Attending ADM NM Stat Source Details Type Number For Provider Date Date Visit Emergency [id number] ABD TRA PSYK 08/15 08/16 Acti ve [facility] 8 PAIN, /2009 [place] Emergency [id number] UPPER BE 09/20 [facility] [place]2009 [place] Emergency [id number] EAR PAIN TRA PSYK 10/09 10/09 [facility] [place] [facility] [id number] CHEST TAJUDDIN 10/31 11/02 Active [place] 1 PAIN CONSUELO /2009 [place] Emergency [id number] ABDOMINA TROY 01/03 01/03 Active [place] 2 L PAIN ROWAN /2009 [place] OU [id number] ABDOMINA CHRISTOPHER 01/05 01/07 Activ e [facility] 4 L PAIN GONZALEZ /2009 [place] Emergency [id number] SU[place]AR TRA PSYK 07/21 07/21 Acti ve [place] 6 HIGH,VAG /2010 [place] BLEEDING Emergency [id number] FACIAL TROY 10/07 10/07 Active [facility] 7 AND NECK ROWAN /2010 [place] Inpatient [id number] FACIAL TARAH 10/09 10/13 Active [facility] 8 NECK BRIDGES /2010 [place] IS Emergency [id number] MOISE MONTEMAYOR 12/22 12/22 Disc harg [facility] [place] OU [id number] CHEST DEE CROCKETT 01/14 01/15 Active [facility] 0 PAIN /2010 [place] OU [id number] CHEST DEE CROCKETT 02/11 02/11 [facility], /2010 [place] S,HYPERG LYCEMIA, UTI Emergency [id number] LOWER LIZY 03/25 03/26 Active [facility] [place] 2 ABD WISEMAN /2010 [place] HIGH [place] Emergency [id number] RIGHT LIZY 04/19 04/20 Active [facility] 3 ABDOMINA WISEMAN /2011 [place], [place] BLOOD IN URINE Emergency [id number] BLEEDING TROY 05/07 05/07 Active [facility] 4 / RT ROWAN /2011 [place] PAIN Emergency [id number] ABDOMINA VIMI SHOEMAKER 05/22 05/23 Ac tive [facility] 5 L PAIN /2011 [place] BLOOD [place] Emergency [id number] LEFT VIMI SHOEMAKER 10/23 10/24 Acti ve [facility] 6 LOWER /2011 [place] L PAIN Emergency [id number] BLOOD VIMI SHOEMAKER 11/27 11/27 Acti ve [facility] 7 SUGAR /2011 [place]OBLEM [place] YEIMY [id number] GUIDO 02/05 02/05 Discharg [facility] 9 BAVISHI ed [facility] Outpatient [id number] ABDOMINA GUIDO 02/16 Active [facility] 8 [facility] [id number] Moise Montemayor 12/27 12/27 [facility] [id number] Greg 01/25 01/26 Jona 1 Kayla /2016 [place] [facility] Emergency [id number] Rudolph 02/25 02/25 Jona 2 Pilar Jr [facility] [id number] Rudolph 02/26 02/26 Jona 3 [place] [facility] l Outpatient [id number] ABD PAIN MESHA Activ e [facility] 3 [facility] Procedures Procedure Code Date Perfomer Comments Source Appendectomy [id number] [facility] Cholecystectomy [id number] [facility] Partial hysterectomy [id number] [facility] Assessment and Plan Assessment and Plan Date Source Extracted from:Title: Progress Note * 01/26/2017 [facility] Author: Marie June MD Date: 01/25/17 Impression and Plan The patient was seen and examined by me with the resident/SENIOR QUALITY ENGINEER/PA and I agree with the History/Exam documented. -Uncontrolled DM: non complaint with her lantus. A1c >16. sugars better since receiving insulin mostly in 200 range. start lantus tonight at lower dose than home dose as not eating much and not t aking it as prescribed at home. monitor for [...] -Hypomagenesemia: supplement -Hypocalcemia: check inonized ca. no per ioral pareasthesias or muscle twitching. -DVT prophylaxis: early ambulation. Extracted from:Title: History and Physical Author: Greg Garza MD Date: 01/25/17 Assessment/Plan 1. Urinary tract infection 2. Diabetes mellitus type 2severely uncontrolled 3. Hyponatremia secondary to elevated blood glucose Plan: Admit patient observation status For urinary tract infection patient will be started on ceftriaxone 1 g IV every 24 hours. Await urine culture sensitivity. Diabetes mellitus type 2 uncontrolled bl ood glucose elevatedgreater than 700 secondary to noncompliance with insulin for the past couple days. Patient does not have an anion gap bicar b levels are normal since patient is not in ketoacidosis. Patient does have acute hypoglycemia. Start patient on IV fluids normal saline at 1 25 cc/h Start patient on insulin sliding scale along with long-actin g insulin. Hyponatremia likely secondary to fluid l oss as well as elevated blood glucose. Continue patient IV fluids and monitor sodium levels. IVZofran as needed nausea vomiting andNorco as needed abdomi nal pain. Prophylaxis DVT prophylaxis withSCDs Plan of Care No Data Provided for This Section Social History Social History Date Source Social History TypeResponse 02/03/2017 [facility] Substance Abuse Use: None. Sexual Sexually active: Yes. Exercise Exercise type: Walking. Employment/School Status: Retired. Alcohol Never Smoking Status Never smoker; Ready to change: No; [place] rns about tobacco use in household: No; Exposure to Tobacco Smoke None; Lives with someone who smokes; Cigarette Smoking Last 365 Days No; Reg Smoking Cessation Counseling No Family History No Data Provided for This Section Advance Directives No Data Provided for This Section Functional Status No Data Provided for This Section
--- OUTSIDE RECORDS SUMMARY | 2019-09-29 12:53 | XMS REPORT | Continuity of Care Document ---
:1965 Author Organization [facility] t Address [address] [place] [address] Care Team Providers Name Role Phone Sharpless Primary Care Physician Pretty OLIVAS, F Attending Clinician Doctor Unassigned, Name Attending Clinician Unavailable KIMBERLYN MARIE Attending Clinician Unavailable BURAK Attending Clinician Unavailable FARZAD WARNER Attending Clinician Unavailable Mateo Quezada Jr Attending Clinician Mack Garza Attending Clinician Bob Davis Attending Clinician SAÚL KANG Attending Clinician Unavailable Mack Garza Admitting Clinician Problems Condition Condition Condition Status Onset Resolution Last Treating Co mments Source Name Details Category Date Date Treatment Clinician Date HURT TOES Diagnosis Active 2017-02-03 Memoria 9-15 10:25:00 l HURT 00:00: [place] TOES 00 Active 12/27/2016 [facility] [place] ABDOMINAL Diagnosis Active 2011-042012-02-17 Memoria PAIN 0-26 10:42:00 l 00:00: Jona ABDOMINAL 00 PAIN Active 02/07/2012 [facility] EGD Diagnosis Active 2011-042012-02-06 Mem oria 0-24 10:10:00 l EGD 06:00: Jona 00 Active 02/05/2012 [facility] BLOOD Diagnosis Active 2011-12-11 Mem oria SUGAR 8-16 11:15:00 l PROBLEM BLOOD 15:00: Jona SUGAR 00 PROBLEM Active 11/28/2011 [facility] LEFT LOWER Diagnosis Active 2011-12-11 Memoria ABDOMINAL 7-12 10:48:00 l PAIN LEFT 08:00: Jona LOWER 00 ABDOMINAL PAIN Active 10/24/2011 [facility] ABDOMINAL Diagnosis Active 2011-12-11 Memoria PAIN HIGH 2-08 11:09:00 l BLOOD 22:00: [place] SUGAR ABDOMINAL 00 PAIN HIGH BLOOD SUGAR Active 05/22/2011 [facility] BLEEDING/ Diagnosis Active 2011-12-11 Memoria RT SIDE 1-24 11:06:00 l PAIN 08:00: Jona BLEEDING/ 00 RT SIDE PAIN Active 05/07/2011 [facility] RIGHTABDOM Diagnosis Active 2011-04-19 Memoria INAL PAIN 1-06 20:37:00 l . AND 00:00: Jona BLOOD IN RIGHTABDOM 00 URINE INAL PAIN . AND BLOOD IN URINE Active 04/19/2011 [facility] RIGHT Diagnosis Active 2011-12-20 Mem oria ABDOMINAL 1-06 13:03:00 l PAIN, RIGHT 00:00: Jona BLOOD IN ABDOMINAL 00 URINE PAIN, BLOOD IN URINE Active 04/19/2011 [facility] LOWER ABD Diagnosis Active 2010-042011-12-11 Memoria PAIN/ HIGH 2-12 11:02:00 l SUGAR LOWER 00:00: Jona ABD PAIN/ 00 HIGH SUGAR Active 03/25/2011 [facility] CHEST PAIN Diagnosis Active 2010-042011-02-11 Memoria AND 0-30 01:56:00 l TIGHTNESS CHEST 18:00: Jorge Luis n PAIN AND 00 TIGHTNESS Active 02/10/2011 [facility] CHEST Diagnosis Active 2010-042011-02-15 Mem oria PAIN, 0-30 21:58:00 l DIZZINESS, CHEST 18:00: Eugenia nn HYPERGLYCE PAIN, 00 EB, UTI DIZZINESS, HYPERGLYCE EB, UTI Active 02/10/2011 [facility] CHEST PAIN Diagnosis Active 2010-042011-01-15 Memoria 0-03 16:36:00 l CHEST 15:00: Jona PAIN 00 Active 01/14/2011 [facility] RIGHT KNEE Diagnosis Active 2010-12-22 Memoria 1ST 3 TOES 9-10 13:04:00 l NUMB RIGHT 11:00: Jona KNEE 1ST 3 00 TOES NUMB Active 12/22/2010 [facility] FACIAL Diagnosis Active 2010-12-22 Mem oria NECK 10-08 13:04:00 l CELLULITIS FACIAL 00:00: Herm ava NECK 00 CELLULITIS Active 10/08/2010 [facility] FACIAL AND Diagnosis Active 2010-12-22 Memoria NECK PAIN 10-07 13:04:00 l FACIAL 06:00: Jona AND NECK 00 PAIN Active 10/07/2010 [facility] SUGAR Diagnosis Active 2010-12-22 Mem oria HIGH,VAGIN 07-21 13:04:00 l AL SUGAR 00:00: Jona BLEEDING HIGH,VAGIN 00 AL BLEEDING Active 07/21/2010 [facility] ABD PAIN Diagnosis Active 2010-12-22 M emoria 01-05 13:04:00 l ABD PAIN 00:00: Jorge Luis n 00 Active 01/05/2010 [facility] EAR PAIN Diagnosis Active 2010-12-22 M emoria 10-09 13:04:00 l EAR PAIN 19:00: Jorge Luis n 00 Active 10/09/2009 [facility] UPPER Diagnosis Active 2010-12-22 Mem oria ABDOMINAL 09-20 13:04:00 l PAIN UPPER 14:00: [place] ABDOMINAL 00 PAIN Active 09/20/2009 [facility] ABD PAIN, Diagnosis Active 2010-12-22 Memoria HIGH SUGAR - 13:04:00 l ABD 00:00: [place] PAIN, HIGH 00 SUGAR Active 08/15/2009 [facility] Abdominal Problem Active 2012-02-19 Me moria pain 09:23:16 l Jona Abdominal pain Active Problem 02/19/2012 [facility], [place] Cellulitis Problem Active 2012-02-19 M emoria 09:23:16 l Jona Cellulitis Active Problem 02/19/2012 [facility], [place] Chest pain Problem Active 2012-02-19 M emoria 09:23:16 l Chest Jona pain Active Problem 02/19/2012 [facility], [place] Hyperglyce Problem Active 2012-02-19 M emoria eb 09:23:16 l [place] Hyperglyce eb Active Problem 02/19/2012 [facility] [place] UTI - Problem Active 2012-02-19 Memor ia Urinary 09:23:16 l tract UTI - Jona infection Urinary tract infection Active Problem 02/19/2012 [facility] [place] Diabetes Problem Active 2017-03-01 Mem oria mellitus 04:36:24 l (disorder) Diabetes He rmann mellitus (disorder) Active Problem 03/01/2017 [facility] Restless Problem Active 2017-03-01 Mem oria legs 04:36:24 l (disorder) Restless He rmann legs (disorder) Active Problem 03/01/2017 [facility] Abdominal Problem Active 2017-03-01 Me moria pain 04:36:24 l (finding) Jona Abdominal pain (finding) Active Problem 03/01/2017 [facility] Chest pain Problem Active 2017-03-01 M emoria (finding) 04:36:24 l Chest [place] pain (finding) Active Problem 03/01/2017 [facility] Hyperglyce Problem Active 2017-03-01 M emoria eb 04:36:24 l (disorder) Jorge Luis n Hyperglyce eb (disorder) Active Problem 03/01/2017 [facility] Urinary Problem Active 2017-03-01 Nirmal feliz tract 04:36:24 l infectious Urinary Her pugh disease tract (disorder) infectious disease (disorder) Active Problem 03/01/2017 [facility] CHEST PAIN Diagnosis Active 2010-12-22 Memoria NOS 13:04:00 l CHEST Jona PAIN NOS Active [facility] CELLULITIS Diagnosis Active 2010-12-22 Memoria NOS 13:04:00 l Jona CELLULITIS NOS Active [facility] Hyperglyce Problem 2016-2017-03-01 2017-03-01 Memoria eb, -14 04:36:24 04:36:24 l unspecifie 06:00: Jorge Luis n d Hyperglyce 00 eb, unspecifie d 02/25/2017 03/01/2017 [facility] Fever, Problem 2016-2017-03-01 2017-03-01 M emoria unspecifie -14 04:36:24 04:36:24 l d Fever, 06:00: Jona unspecifie 00 d 02/25/2017 03/01/2017 [facility] Radiculopa Problem 2016-2017-02-28 2017-02-28 Memoria thy, 1-14 05:26:25 05:26:25 l cervical 06:00: Jona region Radiculopa 00 thy, cervical region 02/25/2017 02/28/2017 [facility] Displaced Problem 2017-2016-12-30 2016-12-30 Memoria unspecifie 9-15 05:13:20 05:13:20 l d fracture 05:00: Jorge Luis n of right Displaced 00 lesser unspecifie toe(s), d fracture initial of right encounter lesser for closed toe(s), fracture initial encounter for closed fracture 7 12/30/2016 [facility] Allergies, Adverse Reactions, Alerts Allergy Allergy Status Severity Reaction(s) Onset Inactive Treating Comm ents Source Name Type Date Date Clinician Poli Jonesensi Active [facility] reaction [facility] Ritalin Ritalin Active Emmanuelle Tenorio Social History Social Habit Start Date Stop Date Quantity Comments Source Sex Assigned At [facility] Social History 2017-02-03 2017-02-03 [facility] hermila 15:24:44 15:24:44 Smoking Status Start Date Stop Date Source Never smoker [facility] Medications Ordered Filled Start Stop Current Ordering Indication Dosage Frequency Signature Comments Components Source Medication Medication Date Date Medication? Clinician (SIG) Name Name rOPINIRole 2018 Yes 1mg [id number] Take [address] [facility] (REQUIP) 1 3-26 [id number] by mouth 3 [facility] - MG tablet 11:54: 3D (three) Medic al 47 times Center daily. pregabalin Yes 50mg [id number] Take [address] [facility] (LYRICA) 50 3-26 [id number] by mouth 3 [facility] - MG capsule 11:54: 3D (three) Medi steven 47 times Center daily. GI cocktail 2016-04 No Notes: Nirmal feliz 1-15 G.I. l 05:06: Cocktail = [place] 00 antacid with simethicon e 22.5 mL - lidocaine viscous 7.5 mL Zofran 2016-04 No Notes: Memoria 1-15 (Same as: l 04:41: Zofran) Jona 00 MEDICATION WASTE Product Size: 4 mg Product Wasted: ___ mg Zofran 2016-04 No Notes: Memoria 1-15 (Same as: l 02:34: Zofran) [place] 00 MEDICATION WASTE Product Size: 4 mg Product Wasted: ___ mg Morphine 2016-04 No Notes: Memoria 1-15 (Same l 02:34: as:MORPhin [place] 00 e Sulfate) Lidocaine 2016-04 Yes Notes: Memori a Hydrochlori -15 Preservati l de 10 MG/ML 02:33: ve free. He rmann Injectable 00 (Same as: Solution Xylocaine MPF) Insulin 2016-04 No 60 Memoria regular 1-15 units) l 02:23: WASTE: F/P [place] 00 - Black; E - Municipal Trash Bin Stable for 28 days at room temperatur e Expires in days from ____Date Sodium 2016-04 No 2,000 mL, Memori a Chloride 1-15 1000 l 0.9% 02:22: ml/hr, Jona (Bolus) IV 00 Infuse Over: 2 hr, Route: IV, 2,000, Drug form: INJ, ONCE, Priority: STAT, Dosing Weight 49.545 kg, Start date: 02/25/17 20:22:00 [employer], Stop date: 02/25/17 20:22:00 [employer] ibuprofen 2016-04 Yes 800 mg = 1 Me moria 800 mg oral 1-14 tab, PO, l tablet 07:20: Q8H, PRN Jona 00 Pain, Take with food, X 5 day, # 15 tab, 0 Refill(s) Acetaminoph 2016-04 Yes 1 - 2 tab, Memoria en 300 MG / 1-14 PO, Q4H, l Codeine 07:20: PRN Pain, Eugenia nn Phosphate 00 X 3 day, # 30 MG Oral 20 tab, 0 Tablet Refill(s) [Tylenol with Codeine #3] Cyclobenzap 2016-04 Yes 5 mg = 1 Me moria rine 1-14 tab, PO, l hydrochlori 07:17: TID, X 7 He rmann de 5 MG 00 day, # 21 Oral Tablet tab, 0 [Flexeril] Refill(s) Valium 2016-04 No Notes: Memoria -14 (Same as: l 05:48: Valium) Ketorolac 2016-04 No 4 days Memor ia -14 l 05:48: MEDICATION WASTE Product Size: 30 mg Product Wasted: ___ mg Ciprofloxac 2016-04 Yes 500 mg = 1 Memoria in 500 MG 0-15 tab, PO, l Oral Tablet 14:57: Q12H, for H ermann [Cipro] 00 UTI, X 3 day, # 6 tab, 0 Refill(s), Pharmacy: [id number] Humalog 100 2016-04 Yes 4 unit, Mem oria units/mL 0-15 SUB-Q, l 14:48: TID-Before 00 Meals, hold insulin injection if your blood sugar is less than 140 mg/dL., # 10 mL, 0 Refill(s), Pharmacy: [facility] #[id number] pantoprazol 2016-04 Yes 40 mg = 1 M emoria e 40 MG 0-15 tab, PO, l Enteric 14:48: Daily, # Jorge Luis n Coated 00 30 tab, 0 Tablet Refill(s), [Protonix] Pharmacy: [facility] #[id number] Calcium 2016-04 Yes 500 mg = 1 Nirmal feliz Carbonate 0-15 tab, PO, l 500 MG 14:48: TID, # 6 Jona Chewable 00 tab, 0 Tablet Refill(s), Pharmacy: [facility] #[id number] Insulin 2016-04 Yes 15 unit, Memori a Glargine 0-15 SUB-Q, l 100 UNT/ML 14:48: Daily, # Her pugh Injectable 00 10 mL, 0 Solution Refill(s), [Lantus] Pharmacy: [facility] #[id number] Calcium 2016-04 No Notes: Memoria Gluconate 0-15 WASTE: F/P l 14:47: - Sink; E [place] 00 - Municipal Trash Bin Calcium 2016-04 No Notes: Memoria Carbonate 0-15 (Same As: l 14:00: Tums) Calcium Carbonate 500 mg = 200 mg elemental calcium Dose = mg calcium carbonate ( mg elemental calcium) Insulin 2016-04 No Notes: Memoria Glargine 0-15 Same as l 100 UNT/ML 02:00: Lantus Eugenia nn Injectable 00 Solostar Solution PEN Do [Lantus] not hold insulin without contacting prescriber "single patient use only" WASTE: F/P - Black; E - Municipal Trash Bin Stable for 28 days at room temperatur e. Expires in days from ____Date Requip 2016-04 No Notes: Memoria 0-15 (Same as: l 02:00: Requip) Jona 00 Lyrica 2016-04 No Notes: Memoria 0-15 (Same as: l 02:00: Lyrica) [place] 00 Calcium 2016-04 No Notes: Memoria Carbonate 0-14 (Same As: l 22:40: Tums) [place] Calcium Carbonate 500 mg = 200 mg elemental calcium Dose = mg calcium carbonate ( mg elemental calcium) Protonix 2016-04 No Notes: Memoria 0-14 Tablet l 22:00: should not Jona 00 be chewed or crushed. (Same as: Protonix) Magnesium 2016-04 No Notes: Memori a Oxide 0-14 (Same as: l 22:00: Mag-Ox [place] 00 400) Magnesium oxide 139et=708b g elemental magnesium Dose=____m g magnesium oxide (___mg elemental magnesium) Ketorolac 2016-04 No 4 days Memor ia 0-14 l 17:02: MEDICATION Jona WASTE Product Size: 30 mg Product Wasted: ___ mg Docusate 2016-04 No Notes: Memoria 0-14 (Same as: l 14:00: Colace) [place] 00 (Do Not Crush) Insulin 2016-04 No 50 units, Memor ia Glargine 0-14 SUB-Q, l 100 UNT/ML 09:54: Daily, 0 Her pugh Injectable 00 Refill(s) Solution [Lantus] ropinirole 2016-04 Yes 2 mg = 1 Mem oria 2 MG Oral 0-14 tab, PO, l Tablet 09:54: Bedtime, 0 Eugenia nn [Requip] 00 Refill(s) pregabalin 2016-04 Yes 75 mg = 1 Me moria 75 MG Oral 0-14 cap, PO, l Capsule 09:54: Bedtime, 0 Herm ava [Lyrica] 00 Refill(s) Insulin 2016-04 No 60 Memoria Lispro 0-14 units) l 09:50: WASTE: F/P [place] 00 - Black; E - Municipal Trash Bin Stable for 28 days at room temperatur e. Expires in days from ____Date Ceftriaxone 2016-04 No Notes: Nirmal feliz 0-14 (Same As: l 07:00: Rocephin). Use with 100 mL NS and infuse over 30 min MEDICATION WASTE Product Size: 1000 mg Product Wasted: ___ mg Hydralazine 2016-04 No Notes: Nirmal feliz 0-14 (Same as: l 06:35: Apresoline ) Push over 5 minutes Glucagon 2016-04 No 1 mg, Memoria 0-14 Route: IM, l 06:35: Drug form: PDR/INJ, PRN, Dosing Weight 51.449, kg, PRN Blood Glucose Results, Start date: 01/25/17 1:35:00 CDT, Duration: 30 day, Stop date: 02/24/17 0:34:00 [employer] Insulin 2016-04 No 60 Memoria Lispro 0-14 units) l 06:35: WASTE: F/P Jona - Black; E - Municipal Trash Bin Stable for 28 days at room temperatur e. Expires in days from ____Date Dextrose 2016-04 No 25 gm, 50 Nirmal feliz 50% Syringe 0-14 mL, Route: l 06:35: IVP, Drug Form: INJ, Dosing Weight 51.449, kg, PRN, PRN Blood Glucose Results, Start date: 01/25/17 1:35:00 CDT, Duration: 30 day, Stop date: 02/24/17 0:34:00 [employer] Acetaminoph 2016-04 No Notes: Do M emoria en 0-14 not exceed l 06:32: 4 gm/day. [place] 00 (Same as: Tylenol) Acetaminoph 2016-04 No Notes: Nirmal feliz en 325 MG / 0-14 (Same as: l Hydrocodone 06:32: [place] Eugenia nn Bitartrate 00 325/5) Do 5 MG Oral not exceed Tablet 4gm/day of acetaminop hen. Ondansetron 2016-04 No Notes: Nirmal feliz 0-14 (Same as: l 06:32: Zofran) [place] MEDICATION WASTE Product Size: 4 mg Product Wasted: ___ mg sodium 2016-04 No 1,000 mL, Memori a chloride 0-14 Rate: 75 l 0.9% 1000 06:32: ml/hr, Jorge Luis n ml INJ 00 Infuse 1,000 mL over: 13.3 hr, Route: IV, Dosing Weight 51.449 kg, Total Volume: 1,000, Start date: 01/25/17 1:32:00 CDT, Stop date: 02/24/17 1:31:00 [employer] Saline 2016-04 No Notes: Memoria Flush 0.9% 0-14 (Same as: l 06:32: BD [place] 00 Posiflush) Ketorolac 2016-04 No 15 mg, Memori a 0-14 Route: IV, l 05:00: ONCE, Dosing Weight 52.273, kg, Start date: 01/25/17 0:00:00 CDT, Stop date: 01/25/17 0:00:00 CDT Famotidine 2016-04 No 20 mg, Memor ia 0-14 Route: l 05:00: IVP, ONCE, Dosing Weight 52.273, kg, Priority: STAT, Start date: 01/25/17 0:00:00 CDT, Stop date: 01/25/17 0:00:00 CDT Sodium 2016-04 No 3,000 mL, Memori a Chloride 0-14 3000 l 0.9% 03:15: ml/hr, Jona (Bolus) IV 00 Infuse Over: 1 hr, Route: IV, 3,000, Drug form: INJ, ONCE, Priority: STAT, Dosing Weight 52.273 kg, Start date: 01/24/17 22:15:00 CDT, Duration: 1 doses or times, Stop date: 01/24/17 22:15:00 CDT Sodium 2016-04 No 500 mL, Memoria Chloride 0-14 500 ml/hr, l 0.9% 03:09: Infuse [place]irie (Bolus) IV 00 Over: 1 hr, Route: IV, 500, Drug form: INJ, ONCE, Priority: STAT, Dosing Weight 52.273 kg, Start date: 01/24/17 22:09:00 CDT, Duration: 1 doses or times, Stop date: 01/24/17 22:09:00 CDT Zofran 2016-04 No 4 mg, Memoria 0-14 Route: l 03:07: IVP, Drug Jona 00 form: INJ, ONCE, Dosing Weight 52.273, kg, Priority: STAT, Start date: 01/24/17 22:07:00 CDT, Stop date: 01/24/17 22:07:00 CDT Morphine 2016- No Notes: Memoria 0-14 (Same l 02:12: as:MORPhin Jona 00 e Sulfate) Acetaminoph No 1 - 2 tab, Memoria en 300 MG / 12-27 PO, Q4H, l Codeine 05:54: PRN Pain, Eugenia nn Phosphate 00 X 2 day, # 30 MG Oral 30 tab, 0 Tablet Refill(s) [Tylenol with Codeine #3] Acetaminoph No Notes: Nirmal feliz en 325 MG / - (Same as: l Hydrocodone 04:47: [place] Eugenia nn Bitartrate 00 325/5) Do 5 MG Oral not exceed Tablet 4gm/day of [[place] acetaminop 5/325] hen. insulin Yes QD Inject [facility] glargine 1-05 subcutaneo [facility] - (LANTUS) 12:38: [facility] 100 unit/mL 45 [address]ly[address] Cent er injection Use as directed Sodium No Vimi 500 mL, Memoria Chloride 11-28 Roche Rate: 500 l 0.9% 03:47: ml/hr, Jona (Bolus) IV 00 Infuse 500 mL over: 1 hr, Route: IV, Dosing Weight 50 kg, Total Volume: 500, Bolus Dose, Priority: STAT, Start date: 11/28/11 22:47:00, Duration: 1 doses or times, Stop date: 11/28/11 23:46:00 NovoLog Yes Substituti Nirmal feliz 11-28 on Allowed l 03:29: Insulin No Vimi 7 unit, Memoria regular 11-28 Roche Route: l 02:51: IVP, ONCE, Dosing Weight 50, kg, Priority: STAT, Start date: 11/28/11 21:51:00, Stop date: 11/28/11 21:51:00 ketorolac No Vimi 30 mg, Memori a 11-28 Roche Route: l 02:51: IVP, Drug form: INJ, ONCE, Dosing Weight 50, kg, Priority: STAT, Start date: 11/28/11 21:51:00, Stop date: 11/28/11 21:51:00 ondansetron No Vimi 4 mg, Memor ia 11-28 Route: l 02:51: IVP, ONCE, Dosing Weight 50, kg, Priority: STAT, Start date: 11/28/11 21:51:00, Stop date: 11/28/11 21:51:00 Sodium No Vimi 1,000 mL, Memori a Chloride 11-28ma Rate: l 0.9% 02:51: 1,000 Jona (Bolus) IV 00 ml/hr, 1,000 mL Infuse over: 1 hr, Route: IVPB, kg, Total Volume: 1,000, Bolus Dose, Priority: STAT, Start date: 11/28/11 21:51:00, Duration: 1 doses or times, Stop date: 11/28/11 22:50:00 Saline No Vimi 5 ml, Memoria Flush 0.9% 11-28 Route: l 02:51: IVP, Drug Form: INJ, kg, PRN, PRN Line Flush, Start date: 11/28/11 21:51:00, Duration: 30 day, Stop date: 12/28/11 21:50:00 [place] 5/325 Yes Juan 1-2 tab, M emoria oral tablet 7-13 Keith PO, Q4-6H, l 06:12: Yeaton PRN, 15 [place] 25 tab, Pain, Substituti on Allowed, Soft Stop Zofran ODT 2011-0 Yes Juan 4 mg, 1 Mem oria 4 mg oral 7-13 Keith tab, PO, l tablet, 06:12: Yeaton TID, PRN, Her pugh disintegrat 16 10 tab, ing Nausea and Vomiting, Substituti on Allowed morphine 2011-0 No Juan 4 mg, 2 Memor ia Sulfate 7-13 Keith mL, Route: l 05:22: Yeaton IVP, Drug Jorge Luis n 00 form: INJ, ONCE, Priority: STAT, Start date: 10/25/11 0:22:00, Stop date: 10/25/11 0:22:00 diphenhydrA 2011-0 No Juan 25 mg, Mem oria MINE 7-13 Keith Route: l 05:06: Yeaton IVP, ONCE, Eugenia nn 00 Priority: STAT, Start date: 10/25/11 0:06:00, Stop date: 10/25/11 0:06:00 morphine 2011-0 No Juan 4 mg, 2 Memor ia Sulfate 7-13 Keith mL, Route: l 03:06: Yeaton IVP, Drug Jorge Luis n 00 form: INJ, ONCE, Priority: STAT, Start date: 10/24/11 22:06:00, Stop date: 10/24/11 22:06:00 Sodium 2011-0 No Juan 1,000 mL, Memor ia Chloride 7-13 Keith Rate: l 0.9% 03:06: Yeaton 1,000 [place]irie (Bolus) IV 00 ml/hr, 1,000 mL Infuse over: 1 hr, Route: IVPB, Dosing Weight 54.545 kg, Total Volume: 1,000, Bolus Dose, Priority: STAT, Start date: 10/24/11 22:06:00, Duration: 1 doses or times, Stop date: 10/24/11 23:05:00 Saline 2011-0 No Juan 5 ml, Memoria Flush 0.9% 7-13 Keith Route: l 03:06: Yeaton IVP, Drug Jorge Luis n 00 Form: INJ, PRN, PRN Line Flush, Start date: 10/24/11 22:06:00, Duration: 30 day, Stop date: 11/23/11 22:05:00 ondansetron 2011-0 No Juan 4 mg, 2 Me moria 7-13 Keith mL, Route: l 03:06: Yeaton IVP, Drug Jorge Luis n 00 form: INJ, ONCE, Priority: STAT, Start date: 10/24/11 22:06:00, Stop date: 10/24/11 22:06:00 Insulin 2011-0 No Juan 5 unit, Memori a regular 7-13 Keith 0.05 mL, l 03:06: Yeaton Route: IV, Eugenia nn 00 Drug form: SOLN, ONCE, Priority: STAT, Start date: 10/24/11 22:06:00, Stop date: 10/24/11 22:06:00 morphine 2011-0 No Vimi 2 mg, Memoria Sulfate 2-09 Roche Route: l 07:52: IVP, ONCE, Jona 00 Start date: 05/23/11 1:52:00, Stop date: 05/23/11 1:52:00 Insulin 2011-0 No Vimi 5 unit, Memoria regular 2-09 Roche 0.05 mL, l 07:10: Route: [place]irie 00 IVP, Drug form: SOLN, ONCE, Priority: STAT, Start date: 05/23/11 1:10:00, Stop date: 05/23/11 1:10:00 Visipaque 2011-0 Yes Vimi 32,000 mg, Me moria 2-09 Roche 100 mL, l 05:47: Route: IV, Ririe Drug form: INJ, ONCE, Start date: 05/22/11 23:47:00, Stop date: 05/22/11 23:47:00 Insulin 2011-0 No Vimi 5 unit, Memoria regular 2-09 Roche 0.05 mL, l 05:36: Route: Ririe 00 SUB-Q, Drug form: SOLN, ONCE, Priority: STAT, Start date: 05/22/11 23:36:00, Stop date: 05/22/11 23:36:00 morphine 2011-0 No Vimi 2 mg, 0.4 Nirmal feliz Sulfate 2-09 Roche mL, Route: l 05:04: IVP, Drug Jona form: INJ, ONCE, Priority: STAT, Start date: 05/22/11 23:04:00, Stop date: 05/22/11 23:04:00 ondansetron 2011-0 No Vimi 4 mg, 2 Mem oria 2 Roche mL, Route: l 05:04: IVP, Drug form: INJ, ONCE, Priority: STAT, Start date: 05/22/11 23:04:00, Stop date: 05/22/11 23:04:00 Sodium 2011-0 No Vimi 500 mL, Memoria Chloride 05-23 Roche Rate: l 0.9% 05:04: 1,000 Jona (Bolus) IV 00 ml/hr, 500 mL Infuse over: 0.5 hr, Route: IV, Total Volume: 500, Bolus dose, Priority: STAT, Start date: 05/22/11 23:04:00, Duration: 1 doses or times, Stop date: 05/22/11 23:33:00 Saline 2011-0 No Vimi 5 ml, Memoria Flush 0.9% 05-23 Roche Route: l 05:04: IVP, Drug Form: INJ, PRN, PRN Line Flush, Start date: 05/22/11 23:04:00, Duration: 24 hr, Stop date: 05/23/11 23:03:00 Pyridium 2011-0 Yes Sonal 200 mg, 1 Me moria 200 mg oral 1-25 Raulito tab, PO, l tablet 02:08: TID, 9 Jona 33 tab, Substituti on Allowed Cipro 500 2011-0 Yes Sonal 500 mg, 1 M emoria mg oral 1-25 Raulito tab, PO, l tablet 02:07: Q12H, 28 Ririe 41 tab, Substituti on Allowed, TAB Pyridium 2011-0 No Sonal 200 mg, 2 Me moria 1-25 Raulito tab, l 02:03: Route: PO, Ririe Drug form: TAB, ONCE, Priority: STAT, Start date: 05/07/11 20:03:00, Stop date: 05/07/11 20:03:00 Cipro 2011-0 No Sonal 500 mg, 2 Memor ia 1-25 Raulito tab, l 02:03: Route: PO, Ririe Drug form: TAB, ONCE, Priority: STAT, Start date: 05/07/11 20:03:00, Stop date: 05/07/11 20:03:00 Cipro 500 2011- Yes Juan 500 mg, 1 Me moria mg oral 04-20 Keith tab, PO, l tablet 06:55: Yeaton BID, 20 Jorge Luis n 31 tab, Substituti on Allowed Zofran ODT Yes Juan 4 mg, 1 Mem oria 4 mg oral 04-20 Keith tab, PO, l tablet, 06:55: Yeaton TID, PRN, Her pugh disintegrat 29 10 tab, ing Nausea and Vomiting, Substituti on Allowed [place] Yes Juan 1 tab, PO, Memor ia 10/325 oral 04-20 Keith Q4-6H, l tablet 06:55: Yeaton PRN, 24 Jorge Luis n 26 tab, as needed for pain, Substituti on Allowed, Maintenanc e hydromorpho No Juan 1 mg, 0.5 Memoria ne 04-20 Keith mL, Route: l 05:38: Yeaton IVP, Drug Jorge Luis n 00 form: INJ, ONCE, Priority: STAT, Start date: 04/19/11 23:38:00, Stop date: 04/19/11 23:38:00 Insulin 2011-0 No Juan 10 unit, Memor ia regular 04-20 Keith 0.1 mL, l 05:31: Yeaton Route: Ririe 00 IVP, Drug form: SOLN, ONCE, Priority: STAT, Start date: 04/19/11 23:31:00, Stop date: 04/19/11 23:31:00 Sodium 2011-0 No Juan 1,000 mL, Memor ia Chloride -07 Keith Rate: l 0.9% 03:30: Yeaton 1,000 Ririe (Bolus) IV 00 ml/hr, 1,000 mL Infuse over: 1 hr, Route: IV, Total Volume: 1,000, Bolus Dose, Priority: STAT, Start date: 04/19/11 21:30:00, Duration: 1 doses or times, Stop date: 04/19/11 22:29:00 Saline 2011-0 No Juan 5 ml, Memoria Flush 0.9% 07 Keith Route: l 03:30: Yeaton IVP, Drug Jorge Luis n 00 Form: INJ, PRN, PRN Line Flush, Start date: 04/19/11 21:30:00, Duration: 30 day, Stop date: 05/19/11 21:29:00 ondansetron 2011-0 No Juan 4 mg, Nirmal feliz 07 Keith Route: l 03:30: Yeaton IVP, ONCE, Eugenia nn 00 Priority: STAT, Start date: 04/19/11 21:30:00, Stop date: 04/19/11 21:30:00 ketorolac 2011-0 No Juan 30 mg, Memor ia - Keith Route: l 03:30: Yeaton IVP, ONCE, Eugenia nn Priority: STAT, Start date: 04/19/11 21:30:00, Stop date: 04/19/11 21:30:00 hydromorpho 2011-0 No Juan 1 mg, Nirmal feliz ne 04-20 Keith Route: l 03:30: Yeaton IVP, ONCE, Eugenia nn 00 Priority: STAT, Start date: 04/19/11 21:30:00, Stop date: 04/19/11 21:30:00 magnesium 2010-04 Yes Mila 150 ml, Me moria citrate 2-13 Zay Phelps PO, ONCE, l 8.85% oral 05:57: 300 ml, Herm ava liquid 30 Substituti on Allowed, Maintenanc e, LIQ MiraLax 2010-04 Yes Mila 17 gm, PO, M emoria oral powder 2-13 Zay Phelps Daily, 255 l for 05:57: gm, Jona reconstitut 18 Substituti ion on Allowed, PDR/REC Phenergan 2010-04 Yes Mila 25 mg, 1 M emoria 25 mg oral 2-13 Zay Phelps tab, PO, l tablet 05:57: Q6H, PRN, Jorge Luis n 09 15 tab, Nausea, Substituti on Allowed Vicodin 2010-04 Yes Mila 1 tab, PO, M emoria 5/500 oral 2-13 Zay Phelps Q4-6H, l tablet 05:57: PRN, 24 Jona 05 tab, for Pain, Substituti on Allowed, Maintenanc e Sodium 2010-04 No Mila 1,000 mL, Mem oria Chloride 2-13 Zay Phelps Rate: l 0.9% 03:24: 1,000 Jona (Bolus) IV 00 ml/hr, 1,000 mL Infuse over: 1 hr, Route: IV, Total Volume: 1,000, Bolus Dose, Priority: STAT, Start date: 03/25/11 21:24:00, Duration: 1 doses or times, Stop date: 03/25/11 22:23:00 Insulin 2010-04 No Mila 10 unit, Mem oria regular 2-13 [place] Phelps 0.1 mL, l 03:16: Route: [place] 00 IVP, Drug form: SOLN, ONCE, Priority: STAT, Start date: 03/25/11 21:16:00, Stop date: 03/25/11 21:16:00 Omnipaque 2010-04 Yes Mila 30,000 mg, Memoria 300 2-13 [place] Phelps 100 mL, l 03:15: Route: IV, Jona 00 Drug form: SOLN, ONCE, Start date: 03/25/11 21:15:00, Stop date: 03/25/11 21:15:00 Saline 2010-04 No Mila 5 ml, Memoria Flush 0.9% 2-13 Zay Phelps Route: l 02:19: IVP, Drug [place] 00 Form: INJ, PRN, PRN Line Flush, Start date: 03/25/11 20:19:00, Duration: 30 day, Stop date: 04/24/11 20:18:00 ondansetron 2010-04 No Mila 4 mg, 2 Memoria 2-13 Zay Phelps mL, Route: l 02:19: IVP, Drug [place] 00 form: INJ, ONCE, Priority: STAT, Start date: 03/25/11 20:19:00, Stop date: 03/25/11 20:19:00 morphine 2010-04 No Mila 4 mg, 0.8 M emoria Sulfate 2-13 [place] Phelps mL, Route: l 02:19: IVP, Drug [place] 00 form: INJ, ONCE, Priority: STAT, Start date: 03/25/11 20:19:00, Stop date: 03/25/11 20:19:00 nitroglycer 2010-04 No 0.4 mg, 1 M emoria in 0.4 mg 0-31 tab, SL, l sublingual 17:47: Q5Min, Eugenia nn tablet 03 PRN, as needed for chest pain, Substituti on Allowed aspirin 81 2010-04 Yes 1 tab, PO, M emoria mg tablet, 0-31 Daily, l chewable 17:29: tab, [place] 44 Substituti on Allowed, CHEWTAB Cipro 2010-04 No Dk 250 mg, 1 Memori a 0-31 Ari tab, l 16:00: [place] Route: PO, Herm ava 00 Drug form: TAB, [id number], Start date: 02/11/11 11:00:00, Duration: 30 day, Stop date: 03/12/11 23:00:00 magnesium 2010-04 No [place] 400 mg, 1 M emoria oxide 0-31 Minhvu Victoriano tab, l 14:00: [place] Route: PO, Jona 00 Drug form: TAB, Daily, Start date: 02/11/11 9:00:00, Duration: 30 day, Stop date: 03/12/11 9:00:00 Lantus 2010-04 No Dk 70 unit, Memori a 0-31 Ari Route: l 14:00: Jonathan SUB-Q, Jona Drug form: SOLN, Daily, Start date: 02/11/11 9:00:00, Duration: 30 day, Stop date: 03/12/11 9:00:00 Levemir 2010-04 No Dk 70 unit, Memor ia FlexPen 0-31 Ari 0.7 mL, l 14:00: Jonathan Route: Jona 00 SUB-Q, Drug form: INJ, Daily, Start date: 02/11/11 9:00:00, Duration: 30 day, Stop date: 03/12/11 9:00:00 Saline 2010-04 No Dk 5 ml, Memoria Flush 0.9% 0-31 Ari Route: l 14:00: Jonathan IVP, Drug Eugenia nn 00 Form: INJ, Q12H, Start date: 02/11/11 9:00:00, Duration: 30 day, Stop date: 03/12/11 21:00:00 nitroglycer 2010-04 No Dk 0.5 inch, Memoria in 2% 0-31 Ari Route: l ointment 14:00: Jonathan TOP, Drug H ermann 00 Form: OINT, TID, Start date: 02/11/11 9:00:00, Duration: 30 day, Stop date: 03/12/11 17:00:00 metoprolol 2010-04 No Dk 25 mg, 1 Me moria tartrate 0-31 Ari tab, l 14:00: [place] Route: PO, Herm ava 00 Drug form: TAB, BID, Start date: 02/11/11 9:00:00, Duration: 30 day, Stop date: 03/12/11 17:00:00 Yesy 180 2010-04 Yes Dakota 180 mg, 1 Memoria mg oral 0-31 Minhvu Victoriano tab, PO, l tablet 12:36: [place] Daily, 30 Jorge Luis n 20 tab, Substituti on Allowed, TAB Cipro 500 2010-04 Yes [place] 500 mg, 1 M emoria mg oral 0-31 Minhvu Ivctoriano tab, PO, l tablet 11:36: [place] BID, 6 Jona 36 tab, Substituti on Allowed Cipro 2010-04 No Dk 250 mg, 1 Memori a 0-31 Ari tab, l 08:00: Jonathan Route: PO, Herm ava 00 Drug form: TAB, [id number], Start date: 02/11/11 3:00:00, Duration: 30 day, Stop date: 03/12/11 15:00:00 acetaminoph 2010-04 No Dk 1 tab, Mem oria en-hydrocod 0-31 Ari Route: PO, l one 07:25: Jonathan Drug Form: Herm ava 00 TAB, Q4H, PRN Pain Score 1-5, Start date: 02/11/11 2:25:00, Duration: 30 day, Stop date: 03/13/11 2:24:00 BD 2010-04 No Dk 15 mL, Memoria Posiflush 0-31 Ari Route: l SF 07:22: Jonathan IVP, Drug Eugenia nn 00 Form: INJ, PRN, PRN Line Flush, Start date: 02/11/11 2:22:00, Duration: 30 day, Stop date: 03/13/11 1:21:00 loratadine 2010-04 No Dk 10 mg, 1 Me moria 0-31 Ari tab, l 07:05: Jonathan Route: PO, Herm ava 00 Drug form: TAB, Daily, PRN Allergic reaction, Priority: NOW, Start date: 02/11/11 2:05:00, Duration: 30 day, Stop date: 03/13/11 2:04:00 Antivert 2010-04 No Dk 25 mg, 1 Nirmal feliz 0-31 Ari tab, l 07:05: Jonathan Route: PO, Herm ava 00 Drug form: TAB, TID, PRN Dizziness, Start date: 02/11/11 2:05:00, Duration: 30 day, Stop date: 03/13/11 2:04:00 Flexeril 2010-04 No Dk 10 mg, 1 Nirmal feliz 0-31 Ari tab, l 07:05: Jonathan Route: PO, Herm ava 00 Drug form: TAB, TID, PRN Spasm, Start date: 02/11/11 2:05:00, Duration: 30 day, Stop date: 03/13/11 2:04:00 Insulin 2010-04 No Dk 6 unit, Memori a (Novolog) 0-31 Ari 0.06 mL, l Sliding 07:05: oJnathan Route: Eugenia nn Scale - Low 00 SUB-Q, Drug form: SOLN, Sliding Scale, PRN Blood Glucose Results, Start date: 02/11/11 2:05:00, Duration: 30 day, Stop date: 03/13/11 1:04:00 glucagon 2010-04 No Dk 1 mg, Memoria 0-31 Ari Route: IM, l 07:05: Jonathan Drug form: Herm ava 00 PDR/INJ, PRN, PRN Blood Glucose Results, Start date: 02/11/11 2:05:00, Duration: 30 day, Stop date: 03/13/11 1:04:00 Dextrose 2010-04 No Dk 25 gm, 50 Mem oria 50% Syringe 0-31 Ari ml, Route: l 07:05: Jonathan IVP, Drug Eugenia nn 00 Form: INJ, PRN, PRN Blood Glucose Results, Start date: 02/11/11 2:05:00, Duration: 30 day, Stop date: 03/13/11 1:04:00 Saline 2010-04 No Dk 5 ml, Memoria Flush 0.9% 0-31 Ari Route: l 07:05: Jonathan IVP, Drug Eugenia nn 00 Form: INJ, PRN, PRN Line Flush, Start date: 02/11/11 2:05:00, Duration: 30 day, Stop date: 03/13/11 1:04:00 nitroglycer 2010-04 No Dk 0.4 mg, 1 Memoria in SL Tab 0-31 Ari tab, l 07:05: [place] Route: SL, Herm ava 00 Drug form: TAB, Q5Min, PRN Chest Pain, Start date: 02/11/11 2:05:00, Duration: 3 doses or times, Stop date: Limited # of times morphine 2010-04 No Dk 2 mg, 0.4 Mem oria Sulfate 0-31 Ari mL, Route: l 07:05: Jonathan IVP, Drug Eugenia nn 00 form: INJ, Q15Min, PRN Chest Pain, Start date: 02/11/11 2:05:00, Duration: 2 doses or times, Stop date: Limited # of times acetaminoph 2010-04 No Dk 650 mg, 2 Memoria en 0- Ari tab, l 07:05: Jonathan Route: PO, Herm aav 00 Drug form: TAB, Q4H, PRN Headache, Start date: 02/11/11 2:05:00, Duration: 30 day, Stop date: 03/13/11 2:04:00 diphenhydrA 2010-04 No Dk 25 mg, 1 M emoria MINE 0- Ari tab, l 07:05: Jonathan Route: PO, Herm ava 00 Drug form: TAB, Bedtime, PRN Insomnia, Start date: 02/11/11 2:05:00, Duration: 30 day, Stop date: 03/13/11 2:04:00 acetaminoph 2010-04 No Dk 1 tab, Mem oria en-hydrocod 0- Ari Route: PO, l one 325 07:05: Jonathan Q4H, PRN Her pugh mg-5 mg 00 Pain Score oral tablet 1-5, Start date: 02/11/11 2:05:00, Duration: 30 day, Stop date: 03/13/11 2:04:00 ondansetron 2010-04 No Dk 4 mg, 1 Me moria 0-31 Ari tab, l 07:05: Jonathan Route: PO, Herm ava 00 Drug form: TAB, Q8H, PRN Nausea & Vomiting, Start date: 02/11/11 2:05:00, Duration: 30 day, Stop date: 03/13/11 2:04:00 temazepam 2010-04 No Dk 15 mg, 1 Mem oria 0-31 Ari cap, l 07:05: [place] Route: PO, Herm ava 00 Drug form: CAP, Bedtime, PRN Insomnia, Start date: 02/11/11 2:05:00, Duration: 30 day, Stop date: 03/13/11 2:04:00 aspirin 325 2010-04 No Dk 325 mg, 1 Memoria mg tablet 0-31 Ari tab, l 07:05: [place] Route: PO, Herm ava 00 Drug form: TAB, ONCE, Start date: 02/11/11 2:05:00, Stop date: 02/11/11 2:05:00 morphine 2010-04 No Penelope S 2 mg, 0.4 Me moria Sulfate 0-31 Shauna mL, Route: l 05:37: IVP, Drug Jona 00 form: INJ, ONCE, Priority: STAT, Start date: 02/11/11 0:37:00, Stop date: 02/11/11 0:37:00 Visipaque 2010-04 No Penelope S 48,000 mg, Memoria 0-31 Shauna 150 mL, l 04:55: Route: IV, Jona Drug form: INJ, ONCE, Start date: 02/10/11 23:55:00, Stop date: 02/10/11 23:55:00 Zofran 2010-04 No Penelope S 4 mg, 2 Memori a 0-31 Shauna mL, Route: l 04:28: IVP, Drug [place] 00 form: INJ, ONCE, Start date: 02/10/11 23:28:00, Stop date: 02/10/11 23:28:00 Cipro 2010-04 No Penelope S 400 mg, Memoria 0-31 Shauna Route: l 04:08: IVPB, [place] 00 ONCE, Priority: STAT, Start date: 02/10/11 23:08:00, Stop date: 02/10/11 23:08:00 Insulin 2010-04 No Penelope S 10 unit, Nirmal feliz regular 0-31 Shauna Route: l 03:56: SUB-Q, Jona 00 ONCE, Priority: STAT, Start date: 02/10/11 22:56:00, Stop date: 02/10/11 22:56:00 Sodium 2010-04 No Penelope S 1,000 mL, Nirmal feliz Chloride 0- Shauna Rate: l 0.9% 03:55: 1,000 [place] (Bolus) IV 00 ml/hr, 1000 mL Infuse over: 1 hr, Route: IV, Total Volume: 1,000, Bolus Dose, Priority: STAT, Start date: 02/10/11 22:55:00, Duration: 1 doses or times, Stop date: 02/10/11 23:54:00 BD 2010-04 No Penelope S 15 mL, Memoria Posiflush 0- Shauna Route: l SF 02:55: IVP, Drug [place] 00 Form: INJ, PRN, PRN Line Flush, Start date: 02/10/11 21:55:00, Duration: 30 day, Stop date: 03/12/11 20:54:00 aspirin 325 2010-04 No Penelope S 325 mg, M emoria mg tablet 0- Shauna Route: PO, l 02:47: Drug form: [place] 00 TAB, ONCE, Priority: STAT, Start date: 02/10/11 21:47:00, Stop date: 02/10/11 21:47:00 metoprolol 2010-04 No Penelope S 50 mg, Mem oria tartrate 0- Shauna Route: PO, l 02:47: Drug form: Jona 00 TAB, ONCE, (Hold if SBP < = 90 mmHg or if < = 100mmHg with symptomati c dizziness, or if HR < = 55), Start date: 02/10/11 21:47:00, Stop date: 02/10/11 21:47:00 nitroglycer 2010-04 No Penelope S 0.5 inch, Memoria in 2% 0- Shauna Route: l ointment 02:47: TOP, Drug Herm ava Form: OINT, ONCE, STAT, Start date: 02/10/11 21:47:00, Stop date: 02/10/11 21:47:00 nitroglycer 2010-04 No Penelope S 0.4 mg, 1 Memoria in 0-31 Shauna tab, l 02:47: Route: SL, [place] 00 Drug form: TAB, Q5Min, PRN Chest Pain, (Hold if SBP < = 90 mmHg or if < = 100mmHg with symptomati c dizziness) , Start date: 02/10/11 21:47:00, Duration: 3 doses or times, Stop date: Limited # of times morphine 2010-04 No Penelope S 2 mg, Memori a Sulfate 0-31 Shauna Route: l 02:47: IVP, ONCE, [place] Priority: STAT, Start date: 02/10/11 21:47:00, Stop date: 02/10/11 21:47:00 Saline 2010-04 No Penelope S 5 ml, Memoria Flush 0.9% 0-31 Shauna Route: l 02:47: IVP, PRN, [place] 00 PRN Line Flush, Start date: 02/10/11 21:47:00, Duration: 30 day, Stop date: 03/12/11 20:46:00 aspirin 325 2010-04 No Giovani 325 mg, 1 Memoria mg tablet, 0-05 Xiaoguang tab, l enteric 14:00: [place] Route: PO, Herm ava coated Drug form: ECTAB, Daily, Start date: 01/16/11 9:00:00, Duration: 30 day, Stop date: 02/14/11 9:00:00 Requip 2010-04 No [place] 1 mg, 1 Memori a 0-05 Minhvu Victoriano tab, l 02:00: [place] Route: PO, [place] Drug form: TAB, Bedtime, Start date: 01/15/11 21:00:00, Duration: 30 day, Stop date: 02/13/11 21:00:00 Nitrostat 2010-04 Yes Giovani 1 tab, SL, M emoria 0.4 mg 0-04 Xiaoguang Q5Min, l sublingual 15:52: [place] PRN, 100 Her pugh tablet 28 tab, Chest Pain, Substituti on Allowed metoprolol 2010-04 Yes Giovani 12.5 mg, Me moria 25 mg oral 0-04 Xiaoguang PO, Q12H, l tablet 15:37: Edwards 30 tab, [place] 31 Substituti on Allowed, TAB aspirin 325 2010-04 Yes Giovani 9,750 mg, Memoria mg tablet, 0-04 Xiaoguang 30 tab, l enteric 15:37: [place] PO, Daily, Herm ava coated 18 30 tab, Substituti on Allowed, ECTAB metoprolol 2010-04 No Giovani 12.5 mg, Me moria 0-04 Xiaoguang 0.5 tab, l 15:36: [place] Route: PO, Jona 00 Drug form: TAB, Q12H, Priority: NOW, Start date: 01/15/11 10:36:00, Duration: 30 day, Stop date: 02/14/11 9:00:00 Fioricet 2010-04 Yes Tajuddin 1 tab, PO, Memoria oral tablet 0-04 Qasimali Q4H, PRN, l 14:18: [place] 30 tab, [place] 21 Headache, Substituti on Allowed, Maintenanc e, TAB Fioricet 2010-04 No Tajuddin 1 tab, Mem oria 0-04 Qasimali Route: PO, l 14:15: [place] Drug Form: Jorge Luis n 00 TAB, Q4H, PRN Headache, Start date: 01/15/11 9:15:00, Duration: 30 day, Stop date: 02/14/11 9:14:00 aspirin 81 2010-04 No [place] 81 mg, 1 M emoria mg tablet, 0-04 Minhvu Victoriano tab, l enteric 14:00: [place] Route: PO, Herm ava coated 00 Drug form: ECTAB, Daily, Start date: 01/15/11 9:00:00, Duration: 30 day, Stop date: 02/13/11 9:00:00 Requip 1 mg 2010-04 Yes 1 mg, 1 Mem oria oral tablet 0-04 tab, PO, l 13:58: Bedtime, Jona 11 Substituti on Allowed ibuprofen 2010-04 No [place] 400 mg, 1 M emoria 400 mg oral 0-04 Minhvu Victoriano tab, l tablet 05:00: [place] Route: PO, Eugenia nn 00 Drug form: TAB, Q8H, Start date: 01/15/11 0:00:00, Duration: 30 day, Stop date: 02/13/11 16:00:00 Saline 2010-04 No [place] 5 ml, Memoria Flush 0.9% 0-04 Minhvu Victoriano Route: l 02:00: [place] IVP, Drug Jona 00 Form: INJ, Q12H, Start date: 01/14/11 21:00:00, Duration: 30 day, Stop date: 02/13/11 9:00:00 Levemir 2010-04 Beth Duncan 70 unit, Nirmal feliz FlexPen 0-04 Minhvu Victoriano 0.7 mL, l 02:00: [place] Route: Jona 00 SUB-Q, Drug form: INJ, Bedtime, Start date: 01/14/11 21:00:00, Duration: 30 day, Stop date: 02/12/11 21:00:00 Lantus 2010-04 Beth Duncan 70 unit, Memor ia 0-04 Minhvu Victoriano Route: l 02:00: [place] SUB-Q, Jona 00 Bedtime, Start date: 01/14/11 21:00:00, Duration: 30 day, Stop date: 02/12/11 21:00:00 glucagon 2010-04 Beth Duncan 1 mg, Memori a 0-04 Minhvu Victoriano Route: IM, l 00:22: [place] Drug form: Jona 00 PDR/INJ, PRN, PRN Blood Glucose Results, Start date: 01/14/11 19:22:00, Duration: 30 day, Stop date: 02/13/11 19:21:00 Insulin 2010-04 Beth Duncan 6 unit, Memor ia (Novolog) 0-04 Minhvu Victoriano 0.06 mL, l Sliding 00:22: [place] Route: [place] Scale - 00 SUB-Q, Very High Drug form: SOLN, Sliding Scale, PRN Blood Glucose Results, Start date: 01/14/11 19:22:00, Duration: 30 day, Stop date: 02/13/11 19:21:00 Dextrose 2010-04 Beth Duncan 25 gm, 50 Me moria 50% Syringe 0-04 Minhvu Victoriano ml, Route: l 00:22: [place] IM, Drug [place] 00 Form: INJ, PRN, PRN Blood Glucose Results, Start date: 01/14/11 19:22:00, Duration: 30 day, Stop date: 02/13/11 19:21:00 Saline 2010-04 No [place] 5 ml, Memoria Flush 0.9% 0-04 Minhvu Victoriano Route: l 00:21: [place] IVP, Drug Jona 00 Form: INJ, PRN, PRN Line Flush, Start date: 01/14/11 19:21:00, Duration: 30 day, Stop date: 02/13/11 19:20:00 nitroglycer 2010-04 No [place] 0.4 mg, 1 Memoria in SL Tab 0-04 Minhvu Victoriano tab, l 00:21: [place] Route: SL, Jona 00 Drug form: TAB, Q5Min, PRN Chest Pain, Start date: 01/14/11 19:21:00, Duration: 3 doses or times, Stop date: Limited # of times acetaminoph 2010-04 No [place] 1 tab, Me moria en-hydrocod 0-04 Minhvu Victoriano Route: PO, l one 500 00:21: [place] Drug Form: Herm ava mg-5 mg 00 TAB, Q4H, oral tablet PRN Pain Score 1-5, Start date: 01/14/11 19:21:00, Duration: 30 day, Stop date: 02/13/11 19:20:00 acetaminoph 2010-04 No [place] 650 mg, 2 Memoria en 0-04 Minhvu Victoirano tab, l 00:21: [place] Route: PO, Jona 00 Drug form: TAB, Q4H, PRN Headache, Start date: 01/14/11 19:21:00, Duration: 30 day, Stop date: 02/13/11 19:20:00 temazepam 2010-04 No [place] 15 mg, 1 Me moria 0-04 Minhvu Victoriano cap, l 00:21: [place] Route: PO, Jona 00 Drug form: CAP, Bedtime, PRN Insomnia, Start date: 01/14/11 19:21:00, Duration: 30 day, Stop date: 02/13/11 19:20:00 ondansetron 2010-04 No [place] 4 mg, 1 M emoria 0-04 Minhvu Victoriano tab, l 00:21: [place] Route: PO, [place] 00 Drug form: TAB, Q8H, PRN Nausea & Vomiting, Start date: 01/14/11 19:21:00, Duration: 30 day, Stop date: 02/13/11 19:20:00 aspirin 325 2010-04 No Moise G 325 mg, 1 Memoria mg tablet 0-03 Davis tab, l 23:59: Route: PO, [place] 00 Drug form: TAB, ONCE, Priority: STAT, Start date: 01/14/11 18:59:00, Stop date: 01/14/11 18:59:00 Omnipaque 2010-04 Yes Moise G 45,000 mg, Memoria 300 0-03 Davis 150 mL, l 22:39: Route: IV, Drug form: INJ, ONCE, Start date: 01/14/11 17:39:00, Stop date: 01/14/11 17:39:00 Insulin 2010-04 No Moise G 5 unit, Nirmal feliz regular 0-03 Davis 0.05 mL, l 22:10: Route: IVP, Drug form: SOLN, ONCE, Priority: STAT, Start date: 01/14/11 17:10:00, Stop date: 01/14/11 17:10:00 GI cocktail 2010-04 No Moise G 30 ml, M emoria 0-03 [place] Route: PO, l 22:08: Drug Form: Jona 00 SUSP, ONCE, Routine, Start date: 01/14/11 17:08:00, Stop date: 01/14/11 17:08:00 NS (Bolus) 2010-04 No Moise G 1,000 mL, Memoria IV 1,000 mL 0-03 Davis Rate: l 22:07: 1,000 [place] 00 ml/hr, Infuse over: 1 hr, Route: IV, Total Volume: 1,000, Priority: STAT, Start date: 01/14/11 17:07:00, Duration: 1 doses or times, Stop date: 01/14/11 18:06:00, Bolus DoseBolus Dose Saline 2010-04 No Moise G 5 ml, Memoria Flush 0.9% 0-03 Davis Route: l 20:20: IVP, Drug Form: INJ, PRN, PRN Line Flush, Start date: 01/14/11 15:20:00, Duration: 30 day, Stop date: 02/13/11 15:19:00 ibuprofen Yes Sonal 1 tab, PO, Memoria 400 mg oral 10 Raulito Q4H, PRN, l tablet 18:32: 20 tab, [place] 59 Pain, Substituti on Allowed acetaminoph Yes Sonal 1 tab, PO, Memoria en-hydrocod 12-22 Raulito Q4-6H, l one 500 18:32: PRN, 20 [place] mg-5 mg 50 tab, Pain, oral tablet Substituti on Allowed, Maintenanc e acetaminoph No Sonal 1 tab, Me moria en-hydrocod 12-22 Raulito Route: PO, l one 500 17:39: Drug Form: Herm ava mg-5 mg 00 TAB, ONCE, oral tablet STAT, Start date: 12/22/10 12:39:00, Stop date: 12/22/10 12:39:00 Vital Signs Vital Name Observation Time Observation Value Comments Source Systolic (mm Hg) 2017-02-26 06:50:00 Nirmal rial [place] Diastolic (mm Hg) 2017-02-26 06:50:00 Mem orial [place] Respitory Rate 2017-02-26 06:50:00 Memori al Jona Temperature Oral (F) 2017-02-26 06:50:00 97.6 F [facility] [place] Heart Rate 2017-02-26 06:50:00 [facility] [place] Respitory Rate 2017-02-26 04:30:00 Memori al [place] Systolic (mm Hg) 2017-02-26 04:30:00 Nirmal rial [place] Diastolic (mm Hg) 2017-02-26 04:30:00 Mem orial [place] Heart Rate 2017-02-26 04:30:00 [facility] [place] Temperature Oral (F) 2017-02-26 00:55:00 98.8 F [facility] [place] Weight 2017-02-26 00:55:00 [facility] [place] BMI Calculated 2017-02-26 00:55:00 Memori al [place] Height 2017-02-26 00:55:00 162.56 cm [facility] [place] Systolic (mm Hg) 2017-02-26 00:55:00 Nirmal rial [place] Diastolic (mm Hg) 2017-02-26 00:55:00 Mem orial [place] Heart Rate 2017-02-26 00:55:00 [facility] [place] Respitory Rate 2017-02-26 00:55:00 Memori al [place] Respitory Rate 2017-02-25 07:35:00 Memori al [place] Systolic (mm Hg) 2017-02-25 07:35:00 Nirmal rial [place] Diastolic (mm Hg) 2017-02-25 07:35:00 Mem orial [place] Temperature Oral (F) 2017-02-25 07:35:00 98.2 F [facility] [place] Heart Rate 2017-02-25 07:35:00 [facility] [place] BMI Calculated 2017-02-25 05:05:00 Memori al [place] Weight 2017-02-25 05:05:00 [facility] [place] Height 2017-02-25 05:05:00 162.56 cm [facility] [place] Heart Rate 2017-02-25 05:05:00 [facility] [place] Respitory Rate 2017-02-25 05:05:00 Memori al [place] Temperature Oral (F) 2017-02-25 05:05:00 97.8 F [facility] [place] Systolic (mm Hg) 2017-02-25 05:05:00 Nirmal rial [place] Diastolic (mm Hg) 2017-02-25 05:05:00 Mem orial [place] Weight 2017-02-25 04:55:00 [facility] [place] Height 2017-02-25 04:55:00 167.64 cm [facility] [place] Temperature Oral (F) 2017-02-25 04:55:00 97.8 F [facility] [place] BMI Calculated 2017-02-25 04:55:00 Memori al [place] Systolic (mm Hg) 2017-02-25 04:55:00 Nirmal rial [place] Diastolic (mm Hg) 2017-02-25 04:55:00 Mem orial [place] Respitory Rate 2017-02-25 04:55:00 Memori al [place] Heart Rate 2017-02-25 04:55:00 [facility] [place] Temperature Oral (F) 2017-01-26 16:47:00 98.5 F [facility] [place] Heart Rate 2017-01-26 16:47:00 [facility] [place] Respitory Rate 2017-01-26 16:47:00 Memori al [place] Systolic (mm Hg) 2017-01-26 16:47:00 Nirmal rial [place] Diastolic (mm Hg) 2017-01-26 16:47:00 Mem orial [place] Heart Rate 2017-01-26 12:26:00 [facility] [place] Respitory Rate 2017-01-26 12:26:00 Memori al [place] Temperature Oral (F) 2017-01-26 12:26:00 98.4 F [facility] [place] Systolic (mm Hg) 2017-01-26 12:26:00 Nirmal rial [place] Diastolic (mm Hg) 2017-01-26 12:26:00 Mem orial [place] Temperature Oral (F) 2017-01-26 09:50:00 98.1 F [facility] [place] Heart Rate 2017-01-26 09:50:00 [facility] [place] Systolic (mm Hg) 2017-01-26 09:50:00 Nirmal rial [place] Diastolic (mm Hg) 2017-01-26 09:50:00 Mem orial [place] Respitory Rate 2017-01-26 09:50:00 Memori al [place] Height 2017-01-25 05:58:00 157.48 cm [facility] [place] Weight 2017-01-25 05:58:00 [facility] [place] BMI Calculated 2017-01-25 05:58:00 Memori al [place] Weight 2017-01-25 02:01:00 [facility] [place] BMI Calculated 2017-01-25 02:01:00 Memori al [place] Height 2017-01-25 02:01:00 162.56 cm [facility] [place] Systolic (mm Hg) 2016-12-27 06:03:00 Nirmal rial [place] Diastolic (mm Hg) 2016-12-27 06:03:00 Mem orial [place] Respitory Rate 2016-12-27 06:03:00 Memori al [place] Heart Rate 2016-12-27 06:03:00 [facility] [place] Temperature Oral (F) 2016-12-27 06:03:00 98.3 F [facility] [place] Temperature Oral (F) 2016-12-27 04:22:00 98.4 F [facility] [place] Respitory Rate 2016-12-27 04:22:00 Memori al [place] Systolic (mm Hg) 2016-12-27 04:22:00 Nirmal rial [place] Diastolic (mm Hg) 2016-12-27 04:22:00 Mem orial [place] BMI Calculated 2016-12-27 04:22:00 Memori al [place] Weight 2016-12-27 04:22:00 [facility] [place] Heart Rate 2016-12-27 04:22:00 [facility] [place] Height 2016-12-27 04:22:00 162.56 cm [facility] [place] Height 2012-02-06 15:19:00 162.56 cm [facility] [place] Weight 2012-02-06 15:19:00 [facility] [place] Height 2011-11-29 02:35:00 162.56 cm [facility] [place] Weight 2011-11-29 02:35:00 [facility] [place] Height 2011-10-25 02:45:00 162.56 cm [facility] [place] Weight 2011-10-25 02:45:00 [facility] [place] Height 2011-05-23 04:48:00 162.56 cm [facility] [place] Weight 2011-05-23 04:48:00 [facility] [place] Temperature Oral (F) 2011-05-08 02:38:00 98.5 F [facility] [place] Diastolic (mm Hg) 2011-05-08 02:38:00 [facility] Systolic (mm Hg) 2011-05-08 02:38:00 [facility] Heart Rate 2011-05-08 02:38:00 [facility] Respitory Rate 2011-05-08 02:38:00 [facility] Weight 2011-05-08 00:09:00 [facility] Height 2011-05-08 00:09:00 162.56 cm [facility] Temperature Oral (F) 2011-05-08 00:09:00 98.6 F [facility] Diastolic (mm Hg) 2011-05-08 00:09:00 [facility] Systolic (mm Hg) 2011-05-08 00:09:00 [facility] Heart Rate 2011-05-08 00:09:00 [facility] Respitory Rate 2011-05-08 00:09:00 [facility] Respitory Rate 2011-04-20 07:05:00 [facility] Heart Rate 2011-04-20 07:05:00 [facility] Diastolic (mm Hg) 2011-04-20 07:05:00 [facility] Systolic (mm Hg) 2011-04-20 07:05:00 [facility] Diastolic (mm Hg) 2011-04-20 06:01:00 [facility] Heart Rate 2011-04-20 06:01:00 [facility] Systolic (mm Hg) 2011-04-20 06:01:00 [facility] Respitory Rate 2011-04-20 06:01:00 [facility] Weight 2011-04-20 02:25:00 [facility] Systolic (mm Hg) 2011-04-20 02:25:00 [facility] Temperature Oral (F) 2011-04-20 02:25:00 98.0 F [facility] Respitory Rate 2011-04-20 02:25:00 [facility] Heart Rate 2011-04-20 02:25:00 [facility] Diastolic (mm Hg) 2011-04-20 02:25:00 [facility] Temperature Oral (F) 2011-03-26 06:05:00 98.0 F [facility] Respitory Rate 2011-03-26 06:05:00 [facility] Heart Rate 2011-03-26 06:05:00 [facility] Systolic (mm Hg) 2011-03-26 06:05:00 [facility] Diastolic (mm Hg) 2011-03-26 06:05:00 [facility] Height 2011-03-26 01:58:00 160.02 cm [facility] Weight 2011-03-26 01:58:00 [facility] Temperature Oral (F) 2011-03-26 01:58:00 99.0 F [facility] Diastolic (mm Hg) 2011-03-26 01:58:00 [facility] Systolic (mm Hg) 2011-03-26 01:58:00 [facility] Respitory Rate 2011-03-26 01:58:00 [facility] Heart Rate 2011-03-26 01:58:00 [facility] Diastolic (mm Hg) 2011-02-11 15:37:00 [facility] Respitory Rate 2011-02-11 15:37:00 [facility] Systolic (mm Hg) 2011-02-11 15:37:00 [facility] Heart Rate 2011-02-11 15:37:00 [facility] Temperature Oral (F) 2011-02-11 15:37:00 98.1 F [facility] Diastolic (mm Hg) 2011-02-11 11:53:00 [facility] Systolic (mm Hg) 2011-02-11 11:53:00 [facility] Temperature Oral (F) 2011-02-11 11:53:00 97.5 F [facility] Heart Rate 2011-02-11 11:53:00 [facility] Respitory Rate 2011-02-11 11:53:00 [facility] Height 2011-02-11 07:38:00 162.56 cm [facility] Weight 2011-02-11 07:38:00 [facility] Respitory Rate 2011-02-11 07:38:00 [facility] Temperature Oral (F) 2011-02-11 07:38:00 98.0 F [facility] Heart Rate 2011-02-11 07:38:00 [facility] Systolic (mm Hg) 2011-02-11 07:38:00 [facility] Diastolic (mm Hg) 2011-02-11 07:38:00 [facility] Weight 2011-02-11 02:32:00 [facility] Height 2011-02-11 02:32:00 162.56 cm [facility] Diastolic (mm Hg) 2011-01-15 16:44:00 [facility] Systolic (mm Hg) 2011-01-15 16:44:00 [facility] Temperature Oral (F) 2011-01-15 16:44:00 97.0 F [facility] Heart Rate 2011-01-15 16:44:00 [facility] Respitory Rate 2011-01-15 16:44:00 [facility] Temperature Oral (F) 2011-01-15 12:18:00 97.2 F [facility] Respitory Rate 2011-01-15 12:18:00 [facility] Heart Rate 2011-01-15 12:18:00 [facility] Diastolic (mm Hg) 2011-01-15 12:18:00 [facility] Systolic (mm Hg) 2011-01-15 12:18:00 [facility] Respitory Rate 2011-01-15 09:30:00 [facility] Systolic (mm Hg) 2011-01-15 09:30:00 [facility] Heart Rate 2011-01-15 09:30:00 [facility] Temperature Oral (F) 2011-01-15 09:30:00 97.9 F [facility] Diastolic (mm Hg) 2011-01-15 09:30:00 [facility] Height 2011-01-15 01:35:00 162.56 cm [facility] Weight 2011-01-15 01:35:00 [facility] Height 2011-01-14 20:07:00 162.56 cm [facility] Weight 2011-01-14 20:07:00 [facility] Systolic (mm Hg) 2010-12-22 18:51:00 [facility] Diastolic (mm Hg) 2010-12-22 18:51:00 [facility] Peripheral Pulse Rate 2010-12-22 18:51:00 [facility] Respitory Rate 2010-12-22 18:51:00 [facility] Height 2010-12-22 16:57:00 162.56 cm [facility] Weight 2010-12-22 16:57:00 [facility] Temperature Oral (F) 2010-12-22 16:57:00 98.2 F [facility] Respitory Rate 2010-12-22 16:57:00 [facility] Peripheral Pulse Rate 2010-12-22 16:57:00 [facility] Diastolic (mm Hg) 2010-12-22 16:57:00 [facility] Systolic (mm Hg) 2010-12-22 16:57:00 [facility] Procedures Procedure Date / Time Performed Performing Clinician Maegan e Appendectomy [facility] Cholecystectomy [facility] Partial hysterectomy [facility] Encounters Start End Encounter Admission Attending Care Care Encounter Source Date/Time Date/Time Type Type Clinicians Facility Department ID 2018-11-26 2018-11-26 Emergency [facility] [id number] 11:32:46 15:11:00 Edgard Medley [id number] [place] [id number] [place] [id number] 2018-11-26 2018-11-26 Orders Doctor RASHID [id number] 00:00:00 00:00:00 Only Unassigned, [place] [id number] [place] [facility] [id number] 2017-02-25 2017-02-26 Outpatient Quezada, 2.16.840. 2.16.840.1. 4 [id number] 18:38:00 00:55:00 Rudolph [id number] 03 Mateo 3.615.120 5.120 2017-02-24 2017-02-25 Outpatient Quezada, 2.16.840. 2.16.840.1. 4 [id number] 22:49:00 01:35:00 Rudolph [id number] 02 Mateo 3.615.120 5.120 2017-01-24 2017-01-26 Outpatient Kayla, 2.16.840. 2.16.840.1 . [id number] 20:53:00 14:35:00 Greg Mack [id number] 01 3.615.120 5.120 2016-12-26 2016-12-27 Outpatient Ryan, 2.16.840. 2.16.840.1. 4 [id number] 23:03:00 01:05:00 Moise Rojas [id number] 3.615.120 5.120 Results Test Description Test Time Test Comments Results Result Comments Source POCT-GLUCOSE METER 2017-10-07 11:53:00 Test Item Value Reference Range Interpretation Comme nts POC-GLUCOSE METER (mobiTeris) (test 277 mg/dL 70-110 H TESTED AT [address] POINT code = 1538) PKY [facility] [address] POCT-GLUCOSE [id number] 11:53:00 Test Item Value Reference Range Interpretation Comments POC-GLUCOSE METER 411 mg/dL 70-110 HH TESTED AT [address] ([facility] (test code POINT PK [facility] [place] = 1538) [address] RAD, SPINE, CERVICAL, 2 OR 3 [id number] 23:46:00Reason for exam:->neck painFINAL REPORT RAD, SPINE, CERVICAL, 1 view. CLINICAL INDICATION: neck pain COMPARISON: None FINDINGS/IMPRESSION: A single lateral view of the cervical spine was obtained.The study is limited due to obliquity. Vertebral body height and and alignment is maintained. The intervertebral disc spaces are not well evaluated. There is no prevertebral soft tissue swelling. Signed: Clarence Grayson Verified Date/Time: 10/06/2017 23:46:30 Reading Location: [address] Transitional Reading Room CT, SPINE, CERVICAL, WO CONTRAST 2017-10-06 23:44:00Reason for exam:->neck painReason for exam:->EMESISIs the patient ?->NoWhat is the patient's sedation requirement?->No SedationFINAL REPORT CT cervical spine without contrast [...] are maintained. There is no significant osseous spi nal or neuroforaminal stenosis. The prevertebral and paraspinal [...] for further evaluation as clinically warranted. Signed: Clarence Grayson Verified Date/Time: 10/06/2017 23:44:40 Reading Location: [address] Transitional Reading Room CT, BRAIN, WITHOUT CONTRAST 2017-10-06 23:24:00Reason for exam:->occipital headacheReason for exam:- >EMESISIs the patient ?->NoWhat is the patient's sedation [...] MDReport Verified Date/Time: 10/06/2017 23:24:44 Reading Location: [address] Reading Room TROPONIN I 2017-10-06 22:56:00 Test Item Value Reference Range Interpretation Comments TROPONIN I (JOHNAKER) (test code = 397) < ng/mL 0.00-0.15 Troponin I (TnI) levels [...] acute neurological disease, and persistent tachyarrhythmia.COMPREHENSIVE METABOLIC [id number] 22:50:00 Test Item Value Reference Range Interpretation Comments TOTAL PROTEIN 8.5 gm/dL 6.0-8.5 (JOHNAKER) (test code = 770) ALBUMIN (BEAKER) 4.3 g/dL 3.5-5.0 (test code = 1145) ALKALINE PHOSPHATASE 126 U/L 30-115 H (BEAKER) (test code = 346) BILIRUBIN TOTAL 0.5 mg/dL 0.1-1.2 (BEAKER) (test code = 377) SODIUM (BEAKER) (test 134 meq/L 135-148 L code = 381) POTASSIUM (BEAKER) 4.3 meq/L 3.6-5.5 (test code = 379) CHLORIDE (BEAKER) 97 meq/L 98-106 L (test code = 382) CO2 (BEAKER) (test 24 meq/L 20-29 code = 355) BLOOD UREA NITROGEN 17 mg/dL 10-26 (BEAKER) (test code = 354) CREATININE (BEAKER) 1.01 mg/dL 0.50-1.20 (test code = 358) GLUCOSE RANDOM 414 mg/dL 70-110 HH (BEAKER) (test code = 652) CALCIUM (BEAKER) 9.6 mg/dL 8.5-10.5 (test code = 697) AST (SGOT) (BEAKER) 11 U/L 5-40 (test code = 353) ALT (SGPT) (BEAKER) 9 U/L 5-50 (test code = 347) EGFR (BEAKER) (test 58 mL/min/1.73 ESTIMA PRATIMA GFR IS code = 1092) sq m NOT ACCURATE CREATININE CLEARANCE IN PREDICTING GLOMERULAR FILTRATION RATE . ESTIMATED GFR I S NOT APPLICABLE FOR DIALYSIS PATIEN TS. [id number] 22:42:00 Test Item Value Reference Range Interpretation Comments AMYLASE (BEAKER) (test code = 349) 58 U/L 30-110 CBC W/PLT COUNT & AUTO [id number] 22:22:00 Test Item Value Reference Range Interpretation Comments WHITE BLOOD CELL COUNT (BEAKER) 10.9 K/ L 4.0-10.0 H (test code = 775) RED BLOOD CELL COUNT (BEAKER) 4.45 M/ L 4.00-5.00 (test code = 761) HEMOGLOBIN (BEAKER) (test code = 12.2 GM/DL 12.0-15.0 410) HEMATOCRIT (BEAKER) (test code = 37.0 % 36.0-45.0 411) MEAN CORPUSCULAR VOLUME (BEAKER) 83.2 fL 82.0-99.0 (test code = 753) MEAN CORPUSCULAR HEMOGLOBIN 27.4 pg 27.0-33.0 (BEAKER) (test code = 751) MEAN CORPUSCULAR HEMOGLOBIN CONC 32.9 GM/DL 32.0-36.0 (BEAKER) (test code = 752) RED CELL DISTRIBUTION WIDTH 14.0 % 10.3-14.2 (BEAKER) (test code = 412) PLATELET COUNT (BEAKER) (test 359 K/CU MM 150-430 code = 756) MEAN PLATELET VOLUME (BEAKER) 7.8 fL 6.5-10.5 (test code = 754) NUCLEATED RED BLOOD CELLS 0 /100 WBC 0-0 (BEAKER) (test code = 413) NEUTROPHILS RELATIVE PERCENT 71 % (BEAKER) (test code = 429) LYMPHOCYTES RELATIVE PERCENT 23 % (BEAKER) (test code = 430) MONOCYTES RELATIVE PERCENT 5 % (BEAKER) (test code = 431) EOSINOPHILS RELATIVE PERCENT 0 % (BEAKER) (test code = 432) BASOPHILS RELATIVE PERCENT 1 % (BEAKER) (test code = 437) NEUTROPHILS ABSOLUTE COUNT 7.70 K/ L 1.80-8.00 (BEAKER) (test code = 670) LYMPHOCYTES ABSOLUTE COUNT 2.50 K/ L 1.48-4.50 (BEAKER) (test code = 414) MONOCYTES ABSOLUTE COUNT (BEAKER) 0.60 K/ L 0.00-1.30 (test code = 415) EOSINOPHILS ABSOLUTE COUNT 0.00 K/ L 0.00-0.50 (BEAKER) (test code = 416) BASOPHILS ABSOLUTE COUNT (BEAKER) 0.10 K/ L 0.00-0.20 (test code = 417) URINALYSIS W/ [id number] 22:09:00 Test Item Value Reference Range Interpretation Comments COLOR (BEAKER) (test code = 470) Yellow CLARITY (BEAKER) (test code = Clear 469) SPECIFIC GRAVITY UA (BEAKER) <= 1.001-1.035 (test code = 468) PH UA (BEAKER) (test code = 467) 6.0 5.0-8.0 PROTEIN UA (BEAKER) (test code = Negative Negative 464) GLUCOSE UA (BEAKER) (test code = >=1000 mg/dL Negative A 365) KETONES UA (BEAKER) (test code = Negative Negative 371) BILIRUBIN UA (BEAKER) (test code Negative Negative = 462) BLOOD UA (BEAKER) (test code = Trace Negative A 461) NITRITE UA (BEAKER) (test code = Positive Negative A 465) LEUKOCYTE ESTERASE UA (BEAKER) Negative Negative (test code = 466) UROBILINOGEN UA (BEAKER) (test 0.2 mg/dL 0.2-1.0 code = 463) BACTERIA (BEAKER) (test code = Many 517) RBC UA-MANUAL (BEAKER) (test <5 /HPF code = 1659) WBC UA-MANUAL (BEAKER) (test 10-20 /HPF code = 1661) SQUAMOUS EPITHELIAL MANUAL <5 /HPF (BEAKER) (test code = 1663) SOURCE(BEAKER) (test code = 2795) POCT-GLUCOSE [id number] 07:19:00 Test Item Value Reference Range Interpretation Comments POC-GLUCOSE METER 241 mg/dL 70-110 H TESTED AT [address] (BEAKER) (test code POINT PK [facility] [place] = 1538) [address] CT, [id number] 19:16:00FINAL REPORT CT OF THE ABDOMEN AND [...] TRACT: No bowel wall thickening or distention. PERITO NEUM/RETROPERITONEUM: No free fluid or free air.LYMPH NODES: [...] in the abdomen or pelvis. Signed: Gama Hammonds MDReport Verified Date/Time: 09/22/2017 19:16:29 Reading Location: [facility] [id number] Consult Reading Room BASI METABOLIC [id number] 17:37:00 Test Item Value Reference Range Interpretation Comments SODIUM (BEAKER) 134 meq/L 135-148 L (test code = 381) POTASSIUM (BEAKER) 5.1 meq/L 3.6-5.5 Specimen markedly (test code = 379) hemolyzed CHLORIDE (BEAKER) 98 meq/L 98-106 (test code = 382) CO2 (BEAKER) (test 16 meq/L 20-29 L code = 355) BLOOD UREA NITROGEN 9 mg/dL 10-26 L (BEAKER) (test code = 354) CREATININE (BEAKER) 0.92 mg/dL 0.50-1.20 Specimen markedly (test code = 358) hemolyzed GLUCOSE RANDOM 408 mg/dL 70-110 HH (BEAKER) (test code = 652) CALCIUM (BEAKER) 9.6 mg/dL 8.5-10.5 (test code = 697) EGFR (BEAKER) (test 64 mL/min/1.73 ESTIMA PRATIMA GFR IS code = 1092) sq m NOT ACCURATE CREATININE CLEARANCE IN PREDICTING GLOMERULAR FILTRATION RATE . ESTIMATED GFR I S NOT APPLICABLE FOR DIALYSIS PATIEN TS. TROPONIN [id number] 17:07:00 Test Item Value Reference Range Interpretation Comments TROPONIN I (BEAKER) (test code = 397) < ng/mL 0.00-0.15 Troponin I (TnI) levels [...] and persistent tachyarrhythmia.CREATINE KINASE (CK), TOTAL AND MB 2017-09-22 17:06:00 Test Item Value Reference Range Interpretation Comments CREATINE KINASE TOTAL (BEAKER) 68 U/L 25-235 (test code = 380) CREATINE KINASE-MB (BEAKER) (test 0.6 ng/mL 0.0-4.9 code = 750) CREATINE KINASE-MB INDEX (BEAKER) 0.9 % (test code = 395) CK-MB Reference Range:<5 Normal5-10 Borderline>10 AbnormalLIPASE 2017-09-22 17:00:00 Test Item Value Reference Range Interpretation Comments LIPASE (BEAKER) (test code = 749) 26 U/L 6-51 [id number] 16:51:00 Test Item Value Reference Range Interpretation Comments AMYLASE (BEAKER) (test 32 U/L 30-110 Speci men markedly code = 349) hemolyzed URINALYSIS W/ [id number] 16:21:00 Test Item Value Reference Range Interpretation Comments COLOR (BEAKER) (test code = Yellow 470) CLARITY (BEAKER) (test code = Slightly Cloudy 469) SPECIFIC GRAVITY UA (BEAKER) <= 1.001-1.035 (test code = 468) PH UA (BEAKER) (test code = 5.5 5.0-8.0 467) PROTEIN UA (BEAKER) (test Negative Negative code = 464) GLUCOSE UA (BEAKER) (test >=1000 mg/dL Negative A code = 365) KETONES UA (BEAKER) (test Negative Negative code = 371) BILIRUBIN UA (BEAKER) (test Negative Negative code = 462) BLOOD UA (BEAKER) (test code Trace Negative A = 461) NITRITE UA (BEAKER) (test Positive Negative A code = 465) LEUKOCYTE ESTERASE UA Negative Negative (BEAKER) (test code = 466) UROBILINOGEN UA (BEAKER) 0.2 mg/dL 0.2-1.0 (test code = 463) BACTERIA (BEAKER) (test code Many = 517) AMORPHOUS CRYSTALS (BEAKER) Moderate (test code = 1584) RBC UA-MANUAL (BEAKER) (test 5-10 /HPF code = 1659) WBC UA-MANUAL (BEAKER) (test 50-100 /HPF code = 1661) SQUAMOUS EPITHELIAL MANUAL <5 /HPF (BEAKER) (test code = 1663) SOURCE(BEAKER) (test code = 2795) CBC W/PLT COUNT & AUTO [id number] 16:15:00 Test Item Value Reference Range Interpretation Comments WHITE BLOOD CELL COUNT (BEAKER) 6.8 K/ L 4.0-10.0 (test code = 775) RED BLOOD CELL COUNT (BEAKER) 4.46 M/ L 4.00-5.00 (test code = 761) HEMOGLOBIN (BEAKER) (test code = 12.5 GM/DL 12.0-15.0 410) HEMATOCRIT (BEAKER) (test code = 37.3 % 36.0-45.0 411) MEAN CORPUSCULAR VOLUME (BEAKER) 83.7 fL 82.0-99.0 (test code = 753) MEAN CORPUSCULAR HEMOGLOBIN 28.0 pg 27.0-33.0 (BEAKER) (test code = 751) MEAN CORPUSCULAR HEMOGLOBIN CONC 33.4 GM/DL 32.0-36.0 (BEAKER) (test code = 752) RED CELL DISTRIBUTION WIDTH 13.4 % 10.3-14.2 (BEAKER) (test code = 412) PLATELET COUNT (BEAKER) (test 340 K/CU MM 150-430 code = 756) MEAN PLATELET VOLUME (BEAKER) 7.9 fL 6.5-10.5 (test code = 754) NUCLEATED RED BLOOD CELLS 0 /100 WBC 0-0 (BEAKER) (test code = 413) NEUTROPHILS RELATIVE PERCENT 60 % (BEAKER) (test code = 429) LYMPHOCYTES RELATIVE PERCENT 32 % (BEAKER) (test code = 430) MONOCYTES RELATIVE PERCENT 7 % (BEAKER) (test code = 431) EOSINOPHILS RELATIVE PERCENT 1 % (BEAKER) (test code = 432) BASOPHILS RELATIVE PERCENT 0 % (BEAKER) (test code = 437) NEUTROPHILS ABSOLUTE COUNT 4.00 K/ L 1.80-8.00 (BEAKER) (test code = 670) LYMPHOCYTES ABSOLUTE COUNT 2.20 K/ L 1.48-4.50 (BEAKER) (test code = 414) MONOCYTES ABSOLUTE COUNT (BEAKER) 0.50 K/ L 0.00-1.30 (test code = 415) EOSINOPHILS ABSOLUTE COUNT 0.10 K/ L 0.00-0.50 (BEAKER) (test code = 416) BASOPHILS ABSOLUTE COUNT (BEAKER) 0.00 K/ L 0.00-0.20 (test code = 417) POCT-GLUCOSE [id number] 15:36:00 Test Item Value Reference Range Interpretation Comments POC-GLUCOSE METER 284 mg/dL 70-110 H TESTED AT [address] ([facility] (test code POINT PK [facility] [place] = 1538) [address] CT, [id number] 15:32:00Reason for exam:->LLQ ABD PAINIs the patient [...] since prior examination dated 07/09/2016. Signed: Gama Hammonds MDReport Verified Date/Time: 07/07/2017 15:32:20 Reading Location: [facility] C013Y CT Body Reading Room LIPASE 2017-07-07 14:41:00 Test Item Value Reference Range Interpretation Comments LIPASE (BEAKER) (test code = 749) 32 U/L 6-51 COMPREHENSIVE METABOLIC [id number] 14:40:00 Test Item Value Reference Range Interpretation Comments TOTAL PROTEIN 7.1 gm/dL 6.0-8.5 (BEAKER) (test code = 770) ALBUMIN (BEAKER) 3.6 g/dL 3.5-5.0 (test code = 1145) ALKALINE PHOSPHATASE 159 U/L 30-115 H (BEAKER) (test code = 346) BILIRUBIN TOTAL 0.3 mg/dL 0.1-1.2 (BEAKER) (test code = 377) SODIUM (BEAKER) (test 132 meq/L 135-148 L code = 381) POTASSIUM (BEAKER) 4.1 meq/L 3.6-5.5 (test code = 379) CHLORIDE (BEAKER) 98 meq/L 98-106 (test code = 382) CO2 (BEAKER) (test 27 meq/L 20-29 code = 355) BLOOD UREA NITROGEN 13 mg/dL 10-26 (BEAKER) (test code = 354) CREATININE (BEAKER) 0.80 mg/dL 0.50-1.20 (test code = 358) GLUCOSE RANDOM 399 mg/dL 70-110 H (BEAKER) (test code = 652) CALCIUM (BEAKER) 8.9 mg/dL 8.5-10.5 (test code = 697) AST (SGOT) (BEAKER) 9 U/L 5-40 (test code = 353) ALT (SGPT) (BEAKER) 11 U/L 5-50 (test code = 347) EGFR (BEAKER) (test 76 mL/min/1.73 ESTIMA PRATIMA GFR IS code = 1092) sq m NOT ACCURATE CREATININE CLEARANCE IN PREDICTING GLOMERULAR FILTRATION RATE . ESTIMATED GFR I S NOT APPLICABLE FOR DIALYSIS PATIEN TS. POCT-GLUCOSE [id number] 14:10:00 Test Item Value Reference Range Interpretation Comments POC-GLUCOSE METER 352 mg/dL 70-110 H TESTED AT [address] (BEAKER) (test code POINT [address] [facility] [place] = 1538) [address] CBC W/PLT COUNT & AUTO [id number] 13:30:00 Test Item Value Reference Range Interpretation Comments WHITE BLOOD CELL COUNT (BEAKER) 5.5 K/ L 4.0-10.0 (test code = 775) RED BLOOD CELL COUNT (BEAKER) 3.93 M/ L 4.00-5.00 L (test code = 761) HEMOGLOBIN (BEAKER) (test code = 10.9 GM/DL 12.0-15.0 L 410) HEMATOCRIT (BEAKER) (test code = 32.8 % 36.0-45.0 L 411) MEAN CORPUSCULAR VOLUME (BEAKER) 83.4 fL 82.0-99.0 (test code = 753) MEAN CORPUSCULAR HEMOGLOBIN 27.8 pg 27.0-33.0 (BEAKER) (test code = 751) MEAN CORPUSCULAR HEMOGLOBIN CONC 33.3 GM/DL 32.0-36.0 (BEAKER) (test code = 752) RED CELL DISTRIBUTION WIDTH 13.6 % 10.3-14.2 (BEAKER) (test code = 412) PLATELET COUNT (BEAKER) (test 344 K/CU MM 150-430 code = 756) MEAN PLATELET VOLUME (BEAKER) 8.5 fL 6.5-10.5 (test code = 754) NEUTROPHILS RELATIVE PERCENT 59 % (BEAKER) (test code = 429) LYMPHOCYTES RELATIVE PERCENT 36 % (BEAKER) (test code = 430) MONOCYTES RELATIVE PERCENT 4 % (BEAKER) (test code = 431) EOSINOPHILS RELATIVE PERCENT 1 % (BEAKER) (test code = 432) BASOPHILS RELATIVE PERCENT 0 % (BEAKER) (test code = 437) NEUTROPHILS ABSOLUTE COUNT 3.20 K/ L 1.80-8.00 (BEAKER) (test code = 670) LYMPHOCYTES ABSOLUTE COUNT 2.00 K/ L 1.48-4.50 (BEAKER) (test code = 414) MONOCYTES ABSOLUTE COUNT (BEAKER) 0.20 K/ L 0.00-1.30 (test code = 415) EOSINOPHILS ABSOLUTE COUNT 0.10 K/ L 0.00-0.50 (BEAKER) (test code = 416) BASOPHILS ABSOLUTE COUNT (BEAKER) 0.00 K/ L 0.00-0.20 (test code = 417) URINALYSIS W/ [id number] 13:01:00 Test Item Value Reference Range Interpretation Comments COLOR (BEAKER) (test code = Light Yellow 470) CLARITY (BEAKER) (test code = Clear 469) SPECIFIC GRAVITY UA (BEAKER) <= 1.001-1.035 (test code = 468) PH UA (BEAKER) (test code = 6.0 5.0-8.0 467) PROTEIN UA (BEAKER) (test code Negative Negative = 464) GLUCOSE UA (BEAKER) (test code >=1000 mg/dL Negative A = 365) KETONES UA (BEAKER) (test code Negative Negative = 371) BILIRUBIN UA (BEAKER) (test Negative Negative code = 462) BLOOD UA (BEAKER) (test code = Negative Negative 461) NITRITE UA (BEAKER) (test code Negative Negative = 465) LEUKOCYTE ESTERASE UA (BEAKER) Negative Negative (test code = 466) UROBILINOGEN UA (BEAKER) (test 0.2 mg/dL 0.2-1.0 code = 463) BACTERIA (BEAKER) (test code = Few 517) RBC UA-MANUAL (BEAKER) (test None Seen /HPF code = 1659) WBC UA-MANUAL (BEAKER) (test <5 /HPF code = 1661) SQUAMOUS EPITHELIAL MANUAL None Seen /HPF (BEAKER) (test code = 1663) SOURCE(BEAKER) (test code = 2795) KETONE, [id number] 12:58:00 Test Item Value Reference Range Interpretation Comments KETONES, BLOOD (BEAKER) (test code 0.1 mmol/L <0.4 = 1103) BLOOD GAS, [id number] 12:48:00 Test Item Value Reference Range Interpretation Comments PH VENOUS (BEAKER) (test code = 7.38 7.32-7.42 701) PCO2 VENOUS (BEAKER) (test code = 46 mmHg 41-51 755) PO2 VENOUS (BEAKER) (test code = 73 mmHg 25-40 H 702) O2 SATURATION VENOUS (BEAKER) 94.5 % 40.0-70.0 H (test code = 703) HCO3 VENOUS (BEAKER) (test code = 27 mmol/L 21-29 705) BASE EXCESS VENOUS (BEAKER) (test 1.3 mmol/L -2.0-3.0 code = 704) PATIENT TEMPERATURE (BEAKER) (test 37.0 C code = 1818) FIO2 (BEAKER) (test code = 1819) 37.0 % POCT-GLUCOSE [id number] 12:04:00 Test Item Value Reference Range Interpretation Comments POC-GLUCOSE METER > mg/dL 70-110 HH OUTSIDE ME ASURING (BEAKER) (test code [facility] AT [facility] 1317 = 1538) [facility] [address] BACTERIAL - [id number] 03:02:00Negative (02/25/17 9:02 PM)[facility] [id number] 03:02:00 Test Item Value Reference Range Interpretation Comments Tube Num CSF (test code = Tube Num CSF) 1 1 [facility] [id number] 03:02:00Clear (02/25/17 9:02 PM)[facility] [id number] 03:02:00Colorless (02/25/17 9:02 PM)[facility] [id number] 03:02:00Colorless (02/25/17 9:02 PM)[facility] [id number] 03:02:002[facility] [id number] 03:02:001[facility] [id number] 03:02:001[facility] [id number] 03:02:002[facility] [id number] 03:02:00 Colorless (02/25/17 9:02 PM)[facility] [id number] 03:02:00Clear (02/25/17 9:02 PM)[facility] [id number] 03:02:00 Test Item Value Reference Range Interpretation Comments Tube Num CSF (test code = Tube Num CSF) 4 1 [facility] [id number] 03:02:00Colorless (02/25/17 9:02 PM) [facility] [id number] 03:02:91112Dzfzhjjd [facility]ann[facility] FLUIDS 2017-02-26 03:02:0055[facility]GAL - [id number] 03:02:00 Negative (02/25/17 9:02 PM)[facility] ApuoqndVIIGELTVPE4541-25-89 03:02:00Non Reactive (02/25/17 9:02 PM)[facility]annMOLECULAR TJUPSSJMWY7212-18-69 03:02:00Negative 2(02/25/17 9:02 PM)[facility]annMOLECULAR DIAGNOSTIC 2017-02-26 03:02:00Negative 1(02/25/17 9:02 PM)[facility]annVIRAL - SEROLOGY 2017-02-26 03:02:00Negative (02/25/17 9:02 PM)[facility]annCHEM PANEL 2017-02-26 01:42:000.9[facility]annCHEM [id number] 01:42:0023[facility]annCHEM CVLAC9065-30-24 01:42:004.3[facility]annCHEM ZEXYF7401-63-80 01:42:0011.3[facility]annCHEM YKMZD6564-88-11 01:42:56318Xlywsbmy HermannCHEM PCMIY4074-15-61 01:42:000.3[facility]annCHEM MRBLO9983-81-12 01:42:0016 [facility]annCHE[facility] TVUBL3630-25-46 01:42:0017[facility]annCHEM PANEL 2017-02-26 01:42:008.2[facility]annCHEM CHZRJ7592-77-71 01:42:004.3[facility]annCHEM AJFMF3732-41-18 01:42:04554Fcpefqgv HermannCHEM LXJDR8627-56-74 01:42:000.70[facility]annCHEM ZFDAJ2272-04-31 01:42:26789Xetsvtap HermannCHEM BWZMM4099-02-56 01:42:008.9[facility]annCHEM HRRYB7685-29-61 01:42:0097 [facility]annCHE[facility] ZNAMC0283-65-94 01:42:0026[facility]annCHEM PANEL 2017-02-26 01:42:43942Nsxdljju HermannCHEM LAODI1859-46-32 01:42:0016[facility]annCHEM OGQFF9943-23-07 01:42:003.9[facility]annCHEM GJEJL5467-78-40 01:42:001.8[facility] MjewetoRWMFIRNOSN8315-54-93 01:42:34276Ozyigcnn Jona HNYHXVJHMJ2723-02-10 01:42:0082.2[facility] YajuoaqAJVMBKQIFD8955-46-08 01:42:00 37.1[facility] TegdpqwTPXAVRAIJL5949-03-13 01:42:007.4[facility]annHEMATOLOGY 2017-02-26 01:42:0014.1[facility] OmnujspRKECLELPQM4697-24-85 01:42:00 Test Item Value Reference Range Interpretation Comments MCH (test code = MCH) 27.6 pg 27.0-31.0 [facility] ZnagfvgDRSSABPLLH9521-51-63 01:42:0033.6[facility]annHEMATOLOGY 2017-02-26 01:42:004.52[facility] ZrvlgywCGPZSDIZJH0747-10-23 01:42:0012.5[facility] RjcrovsZQOFIBTXMC9601-11-01 01:42:007.1[facility] XaoxqmiJXYSUBHWZN8515-51-72 01:42:000.8[facility] GmnnmveRXQWRMZZLW6108-60-63 01:42:002.8[facility] Jona ELPFBUVJPW2051-04-15 01:42:003.8[facility] YybnafrSMJOZNGOCK1468-87-11 01:42:000.4 [facility] SchklkvBOXOOUJDPS2370-11-41 01:42:0053.4[facility]annHEMATOLOGY 2017-02-26 01:42:0039.1[facility] FnmjgkjAEPUMLSKTS7063-07-66 01:42:001.4[facility] GqhzgzkTWGIZGSTDV5473-23-37 01:42:005.3[facility] GqvzrsdDDTWGSGRIU1235-42-32 01:42:000.1[facility] HgxgobgDDCXPKQVAJ0534-95-66 01:42:000.1[facility]annURINE AND OLIAR0179-39-57 01:42:000.2[facility] AND ORCTQ9745-28-87 01:42:00Negative (02/25/17 7:42 PM)[facility] DNOAF1834-48-70 01:42:00Negative *NA*(02/25/17 7:42 PM)[facility] PUBUH6465-63-44 01:42:00Negative *NA*(02/25/17 7:42 PM)[facility] WPZIE8893-74-16 01:42:00Negative (02/25/17 7:42 PM)[facility] HBOUS8944-05-12 01:42:00Negative (02/25/17 7:42 PM)[facility] DKXML4951-37-89 01:42:00Negative (02/25/17 7:42 PM)[facility] LPWAG6980-14-70 01:42:00 Test Item Value Reference Range Interpretation Comments UA pH (test code = UA pH) 6.0 1 5.0-8.0 [facility] NLBZJ7679-20-49 01:42:00 Test Item Value Reference Range Interpretation Comments UA Spec Grav (test code = UA Spec 1.010 1 Grav) [facility] KIEKF0656-27-81 01:42:00Yellow *NA*(02/25/17 7:42 PM) [facility] EVOVC0480-06-22 01:42:00Slight Cloudy (02/25/17 7:42 PM)[facility]annVIRAL - XXUOXZLA5415-85-47 01:42:00Negative (02/25/17 7:42 PM)[facility] - CBAHAHUA0350-34-05 01:42:00Negative (02/25/17 7:42 PM)[facility]annCHEM CXARF0052-52-91 09:02:43298Foulbmss HermannCHEM PANEL 2017-01-26 09:02:000.2[facility]annCHEM OKSMR8358-13-55 09:02:19184Risnplwb HermannCHEM MBEPK5047-67-56 09:02:0012[facility]annCHEM JTZTO0531-72-84 09:02:003.3[facility] HermannCHEM CONEH6889-44-33 09:02:002.4[facility]annCHEM EHKKD4802-90-05 09:02:005.7[facility]annCHEM ZQVOG6392-36-35 09:02:009.7 [facility]annCHEM HZBAL8853-72-71 09:02:84328Jultqlcc HermannCHEM PANEL 2017-01-26 09:02:007.4[facility] HermannCHEM TTIMU4546-29-72 09:02:000.7[facility]annCHEM XWGCC4370-85-06 09:02:000.40[facility] HermannCHEM GFTOP0484-93-00 09:02:005[facility]annCHEM PYJGY1867-17-23 09:02:0037[facility]annCHEM FEZQD7356-32-13 09:02:0044[facility]annCHEM TMAJI4725-87-27 09:02:003.7 [facility]annCHEM YLFFK8723-26-22 09:02:48921Qxrtsjry HermannCHEM PANEL 2017-01-26 09:02:0025[facility] HermannCHEM MNBAV5643-24-73 09:02:51317Svygyyrj HermannCARDIAC HXARMTF5054-39-70 22:26:00<0.02[facility] HermannPARATHYROID XIVEHBC7710-32-42 22:26:000.99[facility] HermannPARATHYROID FDLERNH4979-38-13 22:26:001.01[facility]annCHEM GHLAJ4252-02-79 20:00:002.6[facility]annCHEM MFQUR4510-14-67 20:00:93199Rofcmnmg HermannCHEM IDVST6438-62-46 20:00:000.50 [facility]annCHEM EUMKO1432-75-15 20:00:20620Qzlsosyp HermannCHEM PANEL 2017-01-25 20:00:003.6[facility]annCHEM SPOQM3255-73-01 20:00:0025[facility]annCHEM TKBZH4107-07-84 20:00:23469Vpxvtmxg HermannCHEM FQBPL9598-70-20 20:00:008.6[facility] HermannCHEM JTCNZ5637-75-87 20:00:006.9[facility]annCHEM RBODU3367-87-35 20:00:14019Ylgzrtwe HermannCHEM QEMZP6523-87-53 20:00:008 [facility]annCHEM ZNFSP7973-61-00 08:54:002.7[facility] HermannCHEM PANEL 2017-01-25 08:54:96153Emneznwm HermannCHEM UYPGQ6796-23-89 08:54:000.60[facility] HermannCHEM ZXZCW6898-18-88 08:54:009[facility]annCHEM IMZYL2543-25-69 08:54:18703Tcgulyhe HermannCHEM HUAMW2387-20-22 08:54:0012.5[facility]annCHEM XPDRU9001-03-00 08:54:003.5[facility]annCHEM TKCBO9678-75-50 08:54:53069 [facility]annCHEM EVMGA8785-52-35 08:54:0023[facility] HermannCHEM PANEL 2017-01-25 08:54:007.1[facility]annCHEM YWSAQ2409-67-83 08:54:76191Fupgtaac HermannCHEM BGCAA5470-44-94 08:54:001.7[facility] YvmqsewXNBFAZODGE1516-47-58 08:54:007.4[facility] ApevqtuULNWUGORFB6331-32-73 08:54:0013.6[facility] GUYSCOEVEE3934-80-37 08:54:69063Fcifgzoe GixhqrdNUIMESOAMD0136-12-14 08:54:00 33.4[facility] BvrkzowXCBYVGKYRV7912-10-86 08:54:0082.5[facility] HermannHEMATOLOGY 2017-01-25 08:54:00 Test Item Value Reference Range Interpretation Comments MCH (test code = MCH) 27.6 pg 27.0-31.0 [facility] DaueedjBUZSMCMAVV9834-69-62 08:54:0010.7[facility] HermannHEMATOLOGY 2017-01-25 08:54:0032.0[facility] LutzmffIYBNZCNGKJ9467-80-76 08:54:005.5[facility] ImlawqjUDLJKWVTJZ2597-30-29 08:54:003.88[facility] ZutnnhoUVLESEMXBO5485-46-01 08:54:007.2[facility] ZlqqildBGHDDAUONL2889-28-94 08:54:000.4[facility] RNFWLJXLXU4544-53-55 08:54:003.0[facility] ImxuwyhLBIVCGMCOF6675-55-15 08:54:002.0 [facility] LnxfhopNMREPBHKJU0045-26-18 08:54:000.9[facility] HermannHEMATOLOGY 2017-01-25 08:54:000.6[facility] JvrccloPBLUEHZTZE6331-20-60 08:54:0036.3[facility] CdzuszzKDHFJAXUOH7455-15-87 08:54:0055.0[facility] HermannURINE AND STOOL 2017-01-25 04:54:00Negative (01/24/17 11:54 PM)[facility]annURINE AND STOOL 2017-01-25 04:54:00Positive *ABN*(01/24/17 11:54 PM)[facility] AND BKYQE7238-72-94 04:54:00Negative (01/24/17 11:54 PM)[facility] AND CWRGX5555-04-72 04:54:00Negative *NA*(01/24/17 11:54 PM)[facility] AND MBKUV6221-52-74 04:54:00Negative (01/24/17 11:54 PM)[facility] AND TQFSD5951-25-55 04:54:000.2[facility]annURINE AND WNKSP2046-46-04 04:54:00Negative *NA*(01/24/17 11:54 PM)[facility] AND STOOL 2017-01-25 04:54:00 Test Item Value Reference Range Interpretation Comments UA pH (test code = UA pH) 5.5 1 5.0-8.0 [facility] AND HHEHA5660-61-95 04:54:00<=1.005 *NA*(01/24/17 11:54 PM)[facility] AND BTECC1487-75-60 04:54:00Yellow *NA*(01/24/17 11:54 PM)[facility] AND ACECE6081-45-79 04:54:00Clear (01/24/17 11:54 PM) [facility] HermannCARDIAC LJVYVXI0613-16-61 02:44:0062[facility] HermannCARDIAC NFENYAA3333-74-31 02:44:00<1.0[facility] HermannCARDIAC FWKMUSV7870-72-70 02:44:00<0.02[facility] HermannCARDIAC ZKRRERF4740-38-36 02:44:00<1.6 [facility]annCHEM FFCMG0646-91-36 02:44:0014[facility] HermannCHEM PANEL 2017-01-25 02:44:000.5[facility] HermannCHEM QAQBN3042-26-23 02:44:0037[facility] HermannCHEM NPLUZ6871-74-90 02:44:69412Dgczphkk HermannCHEM RENUL8234-01-25 02:44:000.7[facility] HermannCHEM QICDK1317-00-40 02:44:004.7[facility] HermannCHEM TSYIG6769-64-22 02:44:003.5[facility] HermannCHEM APNZJ5177-26-89 02:44:0016 [facility]annCHEM LVGSM9320-80-04 02:44:008.2[facility] HermannCHEM PANEL 2017-01-25 02:44:75813Ndxgnfys AedjpntJDVQELEMTR7911-62-90 02:44:0013.7[facility] XqtgmexLNYYXXEYTF9724-50-09 02:44:0041.6[facility] FtsorpgEUKCHDXWJQ2380-53-46 02:44:0083.6[facility] DdkliseHQTIDHZTER5265-46-34 02:44:00 Test Item Value Reference Range Interpretation Comments MCH (test code = MCH) 27.5 pg 27.0-31.0 [facility] QllhzusVRVUHXJFQA3260-84-57 02:44:0032.9[facility] HermannHEMATOLOGY 2017-01-25 02:44:0013.6[facility] GrndsajYVJJZBHCYF8394-45-70 02:44:52756Cyraicxs BlqavaoGKEGKODBNA9324-55-29 02:44:008.1[facility] KcrniksXGZPVRPPUD0827-14-91 02:44:005.8[facility] KacgvqdQCCBTVMXZC5835-82-25 02:44:004.97[facility] QKKBSASANR7056-71-54 02:44:000.4[facility] DvkgyqhWBKIUDVMTL2019-93-64 02:44:000.7 [facility] KerdpjnOEAOUAJGTC8511-68-42 02:44:003.5[facility] HermannHEMATOLOGY 2017-01-25 02:44:007.1[facility] DwinezwGEBDRCCWOH9250-59-69 02:44:000.6[facility] AuxkwsrYVZPJIOIED9362-79-62 02:44:001.8[facility] NufzdebKADLCDUNHZ8738-04-66 02:44:0059.9[facility] LtnhknfINANUCJEXX8798-93-64 02:44:0031.7[facility] URINE LOVNAAW5723-66-09 09:22:00 Test Item Value Reference Range Interpretation Comments CULTURE (BEAKER) (test KLEBSIELLA A >100, 000 col/mL code = 1095) PNEUMONIAE SSP Klebsiella PNEUMONIAE pneumoniae ssp pneumoniae Ampicillin + Sulbactam S (test code = 6) Cefoxitin (test code = S 68) Ceftriaxone (test code S = 52) Gentamicin (test code = S 18) Levofloxacin (test code S = 22) Nitrofurantoin (test S code = 23) Piperacillin + S Tazobactam (test code = 29) Tetracycline (test code S = 2) Tobramycin (test code = S 25) Trimethoprim + S Sulfamethoxazole (test code = 47) POCT-GLUCOSE CGDSX8895-20-99 23:15:00 Test Item Value Reference Range Interpretation Comments POC-GLUCOSE METER 227 mg/dL 70-110 H TESTED AT [facility] [address] (BEAKER) (test code [address] [facility] [place] = 1531) [address] URINALYSIS W/ [id number] 22:36:00 Test Item Value Reference Range Interpretation Comments COLOR (BEAKER) (test code = Yellow 470) CLARITY (BEAKER) (test code = Clear 469) SPECIFIC GRAVITY UA (BEAKER) <= 1.001-1.035 (test code = 468) PH UA (BEAKER) (test code = 6.5 5.0-8.0 467) PROTEIN UA (BEAKER) (test code Negative Negative = 464) GLUCOSE UA (BEAKER) (test code >=1000 mg/dL Negative A = 365) KETONES UA (BEAKER) (test code Trace Negative A = 371) BILIRUBIN UA (BEAKER) (test Negative Negative code = 462) BLOOD UA (BEAKER) (test code = Negative Negative 461) NITRITE UA (BEAKER) (test code Positive Negative A = 465) LEUKOCYTE ESTERASE UA (BEAKER) Negative Negative (test code = 466) UROBILINOGEN UA (BEAKER) (test 0.2 mg/dL 0.2-1.0 code = 463) BACTERIA (BEAKER) (test code = Many 517) RBC UA-MANUAL (BEAKER) (test <5 /HPF code = 1659) WBC UA-MANUAL (BEAKER) (test <5 /HPF code = 1661) SQUAMOUS EPITHELIAL MANUAL None Seen /HPF (BEAKER) (test code = 1663) SOURCE(BEAKER) (test code = 2795) KETONE, [id number] 22:32:00 Test Item Value Reference Range Interpretation Comments KETONES, BLOOD (BEAKER) (test code 0.6 mmol/L <0.4 H = 1103) BLOOD GAS, [id number] 22:30:00 Test Item Value Reference Range Interpretation Comments PH VENOUS (BEAKER) (test code = 7.39 7.32-7.42 701) PCO2 VENOUS (BEAKER) (test code = 48 mmHg 41-51 755) PO2 VENOUS (BEAKER) (test code = 28 mmHg 25-40 702) O2 SATURATION VENOUS (BEAKER) 51.3 % 40.0-70.0 (test code = 703) HCO3 VENOUS (BEAKER) (test code = 29 mmol/L 705) BASE EXCESS VENOUS (BEAKER) (test 3.0 mmol/L -2.0-3.0 code = 704) PATIENT TEMPERATURE (BEAKER) (test 37.0 C code = 1818) FIO2 (BEAKER) (test code = 1819) 21.0 % SCREEN, [id number] 22:29:00 Test Item Value Reference Range Interpretation Comments TEST URINE (BEAKER) (test Negative code = 583) TROPONIN [id number] 21:42:00 Test Item Value Reference Range Interpretation Comments TROPONIN I (BEAKER) (test code = 397) < ng/mL 0.00-0.15 Troponin I (TnI) levels [...] and persistent tachyarrhythmia.CREATINE KINASE (CK), TOTAL AND MB 2016-07-09 21:41:00 Test Item Value Reference Range Interpretation Comments CREATINE KINASE TOTAL (BEAKER) 78 U/L 25-235 (test code = 380) CREATINE KINASE-MB (BEAKER) (test 0.4 ng/mL 0.0-4.9 code = 750) CREATINE KINASE-MB INDEX (BEAKER) 0.5 % (test code = 395) CK-MB Reference Range:<5 Normal5-10 Borderline>10 AbnormalCOMPREHENSIVE METABOLIC [id number] 21:34:00 Test Item Value Reference Range Interpretation Comments TOTAL PROTEIN 8.8 gm/dL 6.0-8.5 H Specimen moder ately (BEAKER) (test code = hemoly zed 770) ALBUMIN (BEAKER) 4.3 g/dL 3.5-5.0 Specimen mo derately (test code = 1145) hemolyzed ALKALINE PHOSPHATASE 124 U/L 30-115 H (BEAKER) (test code = 346) BILIRUBIN TOTAL 0.4 mg/dL 0.1-1.2 Specimen mod erately (BEAKER) (test code = hemoly zed 377) SODIUM (BEAKER) (test 130 meq/L 135-148 L code = 381) POTASSIUM (BEAKER) 5.2 meq/L 3.6-5.5 Specimen moderately (test code = 379) hemolyzed CHLORIDE (BEAKER) 93 meq/L 98-106 L (test code = 382) CO2 (BEAKER) (test 24 meq/L 20-29 code = 355) BLOOD UREA NITROGEN 11 mg/dL 10-26 (BEAKER) (test code = 354) CREATININE (BEAKER) 0.90 mg/dL 0.50-1.20 Specimen moderately (test code = 358) hemolyzed GLUCOSE RANDOM 483 mg/dL 70-110 HH (BEAKER) (test code = 652) CALCIUM (BEAKER) 9.6 mg/dL 8.5-10.5 (test code = 697) AST (SGOT) (BEAKER) 21 U/L 5-40 Specimen moderately (test code = 353) hemolyzed ALT (SGPT) (BEAKER) 14 U/L 5-50 Specimen moderately (test code = 347) hemolyzed EGFR (BEAKER) (test 66 mL/min/1.73 ESTIMA PRATIMA GFR IS code = 1092) sq m NOT ACCURATE CREATININE CLEARANCE IN PREDICTING GLOMERULAR FILTRATION RATE . ESTIMATED GFR I S NOT APPLICABLE FOR DIALYSIS PATIEN TS. [id number] 21:32:00 Test Item Value Reference Range Interpretation Comments LIPASE (BEAKER) (test code = 749) 28 U/L 6-51 CBC W/PLT COUNT & AUTO [id number] 20:55:00 Test Item Value Reference Range Interpretation Comments WHITE BLOOD CELL COUNT (BEAKER) 6.6 K/ L 4.0-10.0 (test code = 775) RED BLOOD CELL COUNT (BEAKER) 4.78 M/ L 4.00-5.00 (test code = 761) HEMOGLOBIN (BEAKER) (test code = 12.9 GM/DL 12.0-15.0 410) HEMATOCRIT (BEAKER) (test code = 39.6 % 36.0-45.0 411) MEAN CORPUSCULAR VOLUME (BEAKER) 82.8 fL 82.0-99.0 (test code = 753) MEAN CORPUSCULAR HEMOGLOBIN 26.9 pg 27.0-33.0 L (BEAKER) (test code = 751) MEAN CORPUSCULAR HEMOGLOBIN CONC 32.5 GM/DL 32.0-36.0 (BEAKER) (test code = 752) RED CELL DISTRIBUTION WIDTH 14.0 % 10.3-14.2 (BEAKER) (test code = 412) PLATELET COUNT (BEAKER) (test 335 K/CU MM 150-430 code = 756) MEAN PLATELET VOLUME (BEAKER) 7.7 fL 6.5-10.5 (test code = 754) NUCLEATED RED BLOOD CELLS 0 /100 WBC 0-0 (BEAKER) (test code = 413) NEUTROPHILS RELATIVE PERCENT 56 % (BEAKER) (test code = 429) LYMPHOCYTES RELATIVE PERCENT 36 % (BEAKER) (test code = 430) MONOCYTES RELATIVE PERCENT 6 % (BEAKER) (test code = 431) EOSINOPHILS RELATIVE PERCENT 2 % (BEAKER) (test code = 432) BASOPHILS RELATIVE PERCENT 0 % (BEAKER) (test code = 437) NEUTROPHILS ABSOLUTE COUNT 3.70 K/ L 1.80-8.00 (BEAKER) (test code = 670) LYMPHOCYTES ABSOLUTE COUNT 2.30 K/ L 1.48-4.50 (BEAKER) (test code = 414) MONOCYTES ABSOLUTE COUNT (BEAKER) 0.40 K/ L 0.00-1.30 (test code = 415) EOSINOPHILS ABSOLUTE COUNT 0.20 K/ L 0.00-0.50 (BEAKER) (test code = 416) BASOPHILS ABSOLUTE COUNT (BEAKER) 0.00 K/ L 0.00-0.20 (test code = 417) POCT-GLUCOSE [id number] 20:56:00 Test Item Value Reference Range Interpretation Comments POC-GLUCOSE METER 446 mg/dL 70-110 Notified R Diana DALTON/TESTED AT (BEAKER) (test code [address] [address] = [address] [facility] [address] BEDSIDE GLUCOSE ZVNKUJT5039-94-73 15:13:00644Pnbtozzh HermannBEDSIDE GLUCOSE ZSUSIRT1174-54-68 04:18:46927Hwjdfpji WuyjypxQPYAFWEFS7960-50-34 03:05:000.14 [facility] NxaajhrFCOXIIFQG0936-88-92 03:05:008[facility] DintpkbXAYQRIEPL4721-54-42 03:05:000.2[facility] YljqbsmSAMYGCYDQ0613-35-78 03:05:0027[facility] USOAGNNTD6322-15-31 03:05:0013.2[facility] EqeyawjXWQSHHALO9029-43-12 03:05:008.8 [facility] SnlnhnqXDKCFVNLC4650-12-43 03:05:007.6[facility] HermannCHEMISTRY 2011-11-29 03:05:0016[facility] OostrkjFQVBXXDCI2361-81-14 03:05:003.8[facility] GvbpeuuAICQMDCMI4362-43-11 03:05:003.8[facility] AzxubzeDOMJYRTBZ7449-84-73 03:05:001.0[facility] CzqpzffLUEICXVWZ0146-75-75 03:05:46810Qdwcmvva Jona NTNOWURXX4105-98-98 03:05:0013[facility] EypaqaoPHKPVYXRM1638-93-15 03:05:04883 [facility] IeztoodRONVVGJCX7789-26-22 03:05:0098[facility] HermannCHEMISTRY 2011-11-29 03:05:000.7[facility] BjyweapVFLSWZJNQ8182-15-81 03:05:0011[facility] GlzhyodSZLBFVCMQ7956-22-39 03:05:004.emorial UwqvinvGPKSLDEMI8032-02-33 03:05:01620Eawtnhlp FejoeqoDPUTAYCOQZ3989-58-33 03:05:004.41[facility] JWNVQJTGPA0270-32-51 03:05:005.7[facility] LqarkcoPPKOODUAQT1964-92-26 03:05:00 33.2[facility] ZnqjwscXKMXVLJAKC7686-38-45 03:05:0012.9[facility] HermannHEMATOLOGY 2011-11-29 03:05:0013.8[facility] TgmckqiHGFGVHGQGQ7676-98-07 03:05:0088.4[facility] JigjdbiCCAWMSQAMG3517-70-99 03:05:00 Test Item Value Reference Range Interpretation Comments MCH (test code = MCH) 29.3 pg 27.0-31.0 N [facility] OpvhrxbKQWJCFBGCK3587-86-12 03:05:0038.9[facility] HermannHEMATOLOGY 2011-11-29 03:05:007.5[facility] CfjjlvpVHVXDFSYZO0030-18-33 03:05:73745Nvzanxkw QstjgxhBRXTCJUTUW4032-26-87 03:05:0057.5[facility] MedshygQHIRFXITYQ0139-19-75 03:05:000.5[facility] KkbjeanLDHHMWUHHU5663-35-03 03:05:001.5[facility] VPJXSYZQDY9820-86-18 03:05:005.3[facility] WsbydvzBSWRCYEZNC2863-90-74 03:05:00 35.2[facility] OmtggawEFOYUSQBZX7855-63-53 03:05:002.0[facility] HermannHEMATOLOGY 2011-11-29 03:05:003.3[facility] YzriaiwAXZBBTZSQW0340-34-83 03:05:000.1[facility] IcbsuzzAXXNXOJQCU8815-95-04 03:05:000.3[facility] VzjpcixXCBSLZABHG6686-44-22 03:05:000.0[facility] QawwaacLJZSFXEUZK9470-62-94 03:05:00 Test Item Value Reference Range Interpretation Comments UA Spec Grav (test code = UA Spec 1.010 1 N Grav) [facility] KvvbmeyIJKDLPHOMH6239-86-68 03:05:00 Test Item Value Reference Range Interpretation Comments UA pH (test code = UA pH) 5.5 1 5.0-8.0 N [facility] AqiepbnMZWRUIHPMG0874-33-72 03:05:00Yellow *NA*(11/28/2011 22:05:00) [facility] RhynziaZWOOXSKEJE9949-64-41 03:05:00Clear (11/28/2011 22:05:00)[facility] FfccnqgHYKJRCOOFM0250-77-62 03:05:00Negative (11/28/2011 22:05:00)[facility] FxjxrdqRWZRLVEXFU5411-68-57 03:05:00Negative (11/28/2011 22:05:00)[facility] UrohcuqMDVSSAMLOY2807-42-52 03:05:000.2[facility] YqaclnkCNWALGIYXI0476-03-38 03:05:00>=1000 mg/dL *ABN*(11/28/2011 22:05:00)[facility] 2011-11-29 03:05:00Negative mg/dL *NA*(11/28/2011 22:05:00)[facility] NOFSWVPRQW8054[facility]36-48 03:05:00Negative mg/dL (11/28/2011 22:05:00)[facility] RwcselaJULANMNBWU3131-72-45 03:05:00Negative (11/28/2011 22:05:00)[facility] WrtwracYHPUVOELWX8158-94-21 03:05:00Negative *NA*(11/28/2011 22:05:00)[facility] CenterTmjkchnDYUYRODYPB1591-36-21 03:05:00Rare /LPF (11/28/2011 22:05:00)[facility] CenterBfsoxohEPVNMDLOYQ5865-54-20 03:05:00Occasional /HPF (11/28/2011 22:05:00) [facility] CenterNqkyhpjCTVQKCSBZW6315-53-39 03:05:000-2 /HPF (11/28/2011 22:05:00) [facility] NbcdxgqFJJZGOOPFC0875-43-52 03:05:000-2 /HPF (11/28/2011 22:05:00) [facility] WktxmwuHFNEKRVSFN9512-47-12 03:05:00Performed (11/28/2011 22:05:00) [facility] KQLJYFW4832-39-62 02:45:00>400[facility]annBEDSIDE GLUCOSE FGSHCEG9125-17-16 06:10:20414Affynass HermannBEDSIDE GLUCOSE OXNIAJY3322-08-78 05:04:0094[facility] NuvnyudMZOJHKCVO2155-29-61 03:06:00 72[facility] VmobvevQITSTZQNJ8990-51-53 03:06:0040[facility] HermannCHEMISTRY 2011-10-25 03:06:007.42[facility] SvoebnlRWXILXIVC0988-91-86 03:06:000.0[facility] PzzhixoARHBSYHJE5660-33-07 03:06:00Rm Air (10/24/2011 22:06:00)[facility] SHCPPIAKK0834-09-19 03:06:0095.0[facility] OzlsvhkVHJMNUANT4866-71-30 03:06:001 [facility] FyvwullAMJDCSSUA0620-08-54 03:06:0026[facility] HermannCHEMISTRY 2011-10-25 03:05:67488Zzxdteos IkzbampELUVLSYFO5680-78-90 03:05:00246Bmyvtycw EckmzvrVSEZCXUTO4897-21-26 03:05:0019[facility] HhylvaxOAWFOKLSZ0571-38-72 03:05:008.4[facility] VotoqzcYFFVEMJGV2943-63-59 03:05:67355Dcyujuka Jona DGTQQZUYW2976-89-39 03:05:12810Ekbbqzil OzfidxhKMHVEDQOZ7898-35-11 03:05:003.8 [facility] CbkvkpmOGFKEDTHJ2632-74-80 03:05:003.7[facility] HermannCHEMISTRY 2011-10-25 03:05:0027[facility] PutjvogFHKKBLSCQ9446-92-69 03:05:0012.2[facility] RlewtasURMBPALJO1794-74-00 03:05:004.2[facility] CyzgcraEIYHAQFDW0197-11-78 03:05:000.8[facility] SykpctjAXTXPTDZK1206-52-39 03:05:55766Qntpxeph Jona VJNVAJPUK7496-02-21 03:05:0024[facility] UvbuugfEKGQHVDDA2437-12-02 03:05:007.5 [facility] ByhmlijQINVYFNYH5244-43-76 03:05:0010[facility] HermannCHEMISTRY 2011-10-25 03:05:11347Nthutuhz OdlyevrOLJPOUSVJ9287-72-15 03:05:000.3[facility] MombtykKLSHSELTC2873-85-42 03:05:001.0[facility] UdklewkHJRBDHFVV7782-35-60 03:05:0017[facility] VkhedeeIGUCMKTEL7818-43-43 03:05:000.22[facility] JSDXHMPTVQ4994-79-31 03:05:000.1[facility] ItbjyxtDWOPKYPVRL0976-96-72 03:05:002.0 [facility] YgpmtqbRCWTGHIIMD4711-04-69 03:05:000.0[facility] HermannHEMATOLOGY 2011-10-25 03:05:000.4[facility] JisvpaaZIPMHPEUBF5377-40-59 03:05:0029.4[facility] EhinqwhYFHQGWNLFQ4309-91-76 03:05:004.3[facility] EgohytwIGPPRUWAYA5109-27-01 03:05:005.7[facility] ZkdtvvrMDYEZNJSGA8827-88-59 03:05:000.4[facility] UREXZYMWDG3854-69-43 03:05:001.2[facility] BolaercDMOGTNXSPT9330-44-74 03:05:00 63.3[facility] AkyiqpyIHZHHGVZLO8818-50-26 03:05:0014.0[facility] HermannHEMATOLOGY 2011-10-25 03:05:26442Xuqpygjb UekqqinTHEYMWDNMY7989-92-88 03:05:008.0[facility] GgqimjkVICEKHKEAW2489-97-42 03:05:0013.3[facility] NfkocabDDUQJCDTEP7495-08-68 03:05:0039.4[facility] PhslsbaADVNKDHFPT9977-28-99 03:05:0086.2[facility] RVZRXTPKNF2079-29-86 03:05:00 Test Item Value Reference Range Interpretation Comments MCH (test code = MCH) 29.1 pg 27.0-31.0 N [facility] NxzxnokICKMYIWOOY9492-94-08 03:05:0033.8[facility]annHEMATOLOGY 2011-10-25 03:05:006.9[facility] BcaaxwzKZXRLTACCA1989-22-86 03:05:004.57[facility] WvjhaynBKLCCDBYBZ8792-06-13 03:05:00Positive *ABN*(10/24/2011 22:05:00)[facility] IwertunGYWBZQATSV1375-54-17 03:05:00Negative (10/24/2011 22:05:00)[facility] ExhclsySIOIZAHFGH9043-56-10 03:05:00Negative (10/24/2011 22:05:00)[facility] GvmbcezCJCBXJNLQT4676-17-87 03:05:00>=1000 mg/dL *ABN*(10/24/2011 22:05:00) [facility]xqnyjsBXAXCUQRZL5026-76-05 03:05:00 Test Item Value Reference Range Interpretation Comments UA pH (test code = UA pH) 6.0 1 5.0-8.0 N [facility] CenterScmynxtLXIMKSJCJK5626-93-13 03:05:00 Test Item Value Reference Range Interpretation Comments UA Spec Grav (test code = UA Spec 1.015 1 N Grav) [facility] CenterWgtuqklBJHRTUEIKA1585-77-20 03:05:00Yellow *NA*(10/24/2011 22:05:00) [facility] CenterWpvhuwkCPTVCZUPRH2190-28-20 03:05:00Clear (10/24/2011 22:05:00)[facility] CenterDtewoyxHGMGESPSEA6594-56-26 03:05:000.2[facility] CenterYkqenvxJLCORQHDUA9388-88-32 03:05:00Negative *NA*(10/24/2011 22:05:00)[facility] CenterSirhipiSOSZJYIZVC8215-63-60 03:05:00Negative (10/24/2011 22:05:00)[facility] CenterGabvnfzLQJMOSOKZI9253-44-80 03:05:00Negative *NA*(10/24/2011 22:05:00)[facility] CenterWpqatdxCQVCKHMBMC8736-57-15 03:05:00Rare /LPF (10/24/2011 22:05:00)[facility] CenterHithwmtFXFUDMVKEV6574-86-50 03:05:00Moderate /HPF (10/24/2011 22:05:00)[facility] CenterEizivhtUCYTGZZUSP3360-11-45 03:05:000-2 /HPF (10/24/2011 22:05:00)[facility] CenterVkrraulMYUIAVRDKW4705-54-51 03:05:00Performed (10/24/2011 22:05:00)[facility] CenterAeygkurXBSGXIPUSV2720-02-06 03:05:006-10 /HPF *ABN*(10/24/2011 22:05:00)[facility] CenterCmwwadbZPWORXAYBK8268-74-07 03:05:00Rare /LPF (10/24/2011 22:05:00)[facility]annBEDSIDE GLUCOSE TESTING 2011-10-25 02:43:00>400[facility]annBEDSIDE GLUCOSE TPKDUFW1459-92-44 08:15:50262Mingsjxz HermannBEDSIDE GLUCOSE IAJGOSK5060-67-83 07:07:00>400 [facility] WimjlzuHJFOHXMJY5022-39-70 05:10:57695Ilfejytm HermannCHEMISTRY 2011-05-23 05:10:000.8[facility] IlcwmaaOJIWDQXCY3595-78-18 05:10:0026[facility] FbwelsiCRWQGJEUG6525-02-65 05:10:0096[facility] FaflugiBFPDFDWSJ7537-00-07 05:10:003.9[facility] VlftnvoIQMOGPDZX5196-87-21 05:10:0012.9[facility] RZCZMGOPN5036-78-98 05:10:004.0[facility] IwayrdcYSTBQTEBZ2042-63-89 05:10:007.8 [facility] WzbtxycECONUKRJU0729-86-57 05:10:0015[facility] HermannCHEMISTRY 2011-05-23 05:10:53886Htmdrmkr DaopamfZQVTBQOXY4570-53-87 05:10:001.1[facility] LcyleovNUXUCUIMS1223-01-55 05:10:003.8[facility] QjlhawpRVUWJFPJK5472-92-19 05:10:008.6[facility] HqyfjhqNYHUOAYAE9844-74-29 05:10:0011[facility] UGFGNBCZJ3709-08-95 05:10:000.4[facility] LfmbdotYAHUPPEAV4103-25-17 05:10:57834 [facility] XomcmqgMKUFLBGDN4742-80-09 05:10:0015[facility]annCHEMISTRY 2011-05-23 05:10:24189Wsbqkxub EjgtitpQUZOCXHGF5943-02-14 05:10:0012[facility] KsryyebYVXWFYXLN6122-87-69 05:10:81560Tpxturce YreooqjWIAOGAIET3552-83-82 05:10:000.36[facility] VxzkckfWWOUVCTBLE6448-45-79 05:10:00980Tcwjlkmc [facility]ona YAQKSZGNQX3521-47-61 05:10:0034.3[facility] OrhmbvvNOYEXPIPQN6261-12-53 05:10:00 7.9[facility] ChdvespBYYTLCHHGN0055-78-74 05:10:0013.0[facility]annHEMATOLOGY 2011-05-23 05:10:00 Test Item Value Reference Range Interpretation Comments MCH (test code = MCH) 29.5 pg 27.0-31.0 N [facility] SrslamqAFQUOCFJTO1166-59-84 05:10:0038.1[facility]annHEMATOLOGY 2011-05-23 05:10:0086.0[facility] JierowmFEXOYYZFHB7807-60-42 05:10:004.43[facility] TmnabmyGVAMVQGWXB2290-23-93 05:10:005.9[facility] CwrrzwaYPEMBEWOTW0057-25-85 05:10:0014.0[facility] NzysxhrQMTIWWOPXL9827-52-55 05:10:000.0[facility] QNBUYLURFC3379-60-28 05:10:001.7[facility] RbzyuilNBVMSPZWKP9405-64-65 05:10:000.3 [facility] KsqgdtrCIWOVIGQHD2305-24-72 05:10:000.6[facility]annHEMATOLOGY 2011-05-23 05:10:003.8[facility] WfzzpzwLECDKSWCFX8178-23-36 05:10:000.1[facility] RatfsyiESLJEEFIHA8492-91-31 05:10:004.7[facility] XnviigfNINESQWLLC7970-28-27 05:10:0028.9[facility] TthtfwxGBOWSHOOSZ3270-90-01 05:10:002.5[facility] HKSWWGCMEL3060-14-68 05:10:0063.3[facility] VrjladvEKGLUOPNJI0537-32-49 05:10:000- 2 /HPF (05/22/2011 23:10:00)[facility] CsagqjpFIVFQCYDQW7482-36-32 05:10:00 Occasional /HPF (05/22/2011 23:10:00)[facility] YyxjmdrVNGPSXNCFV1693-42-80 05:10:00Negative (05/22/2011 23:10:00)[facility] PyqbqshQUMUHUJUNK8323-98-47 05:10:00Negative *NA*(05/22/2011 23:10:00)[facility] AdmkievAFOSPFNWZX7439-76-96 05:10:00>=1000 mg/dL *ABN*(05/22/2011 23:10:00)[facility]annURINALYSIS 2011-05-23 05:10:00Negative (05/22/2011 23:10:00)[facility]annURINALYSIS 2011-05-23 05:10:00 Test Item Value Reference Range Interpretation Comments UA pH (test code = UA pH) 5.0 1 5.0-8.0 N [facility] VtkzsqjBBJGEWRDAU5304-28-68 05:10:003-5 /HPF (05/22/2011 23:10:00) [facility] HhkcdufDPBQSMSABC1463-10-66 05:10:00Rare /LPF (05/22/2011 23:10:00) [facility] QfnkzluVFPUMDEEPE8105-52-40 05:10:000.2[facility]annURINALYSIS 2011-05-23 05:10:00Negative (05/22/2011 23:10:00)[facility]annURINALYSIS 2011-05-23 05:10:00Negative *NA*(05/22/2011 23:10:00)[facility]annURINALYSIS 2011-05-23 05:10:00Negative (05/22/2011 23:10:00)[facility]annURINALYSIS 2011-05-23 05:10:00Performed (05/22/2011 23:10:00)[facility]annURINALYSIS 2011-05-23 05:10:00Yellow *NA*(05/22/2011 23:10:00)[facility]annURINALYSIS 2011-05-23 05:10:00Clear (05/22/2011 23:10:00)[facility]annURINALYSIS 2011-05-08 00:16:00Negative (05/07/2011 18:16:00)[facility]annURINALYSIS 2011-05-08 00:16:000.2[facility] BowoiwrAGPXDUFIBG9724-51-78 00:16:00Negative *NA*(05/07/2011 18:16:00)[facility] CenterMdrakfnFXZCURWQHH0511-87-00 00:16:00Large *ABN*(05/07/2011 18:16:00)[facility]XqwwxuuYBNTZKRSBT7132-36-55 00:16:006-10 /HPF *ABN*(05/07/2011 18:16:00)[facility] CenterEsujbooUDEDDSKASS2595-84-23 00:16:00 Occasional /HPF (05/07/2011 18:16:00)[facility] CenterUzjxtqsTRVCEKFKEY4930-67-08 00:16:00Performed (05/07/2011 18:16:00)[facility] CenterRbkmhroJLELOLIFZO3446-09-22 00:16:00Few /LPF (05/07/2011 18:16:00)[facility] CenterOlbjbxmYATPTIIEFD5923-22-40 00:16:00Negative (05/07/2011 18:16:00)[facility] CenterAkofactZLZBOQTQCG9287-24-80 00:16:0021-50 /HPF *ABN*(05/07/2011 18:16:00)[facility] CenterannURINALYSIS 2011-05-08 00:16:00Trace *ABN*(05/07/2011 18:16:00)[facility] 00:16:00>=1000 mg/dL *ABN*(05/07/2011 18:16:00)[facility] NLJRCGLKVS5208-27-62 00:16:00Negative (05/07/2011 18:16:00)[facility] ZEHAJYWYBE8328-34-77 00:16:00 Test Item Value Reference Range Interpretation Comments UA Spec Grav (test code = UA Spec 1.010 1 N Grav) [facility] CenterCqvjhhkQAGKKABNWL3551-92-32 00:16:00Clear (05/07/2011 18:16:00)[facility] CenterJmlrzvrFVJSFBFNTG7179-21-31 00:16:00 Test Item Value Reference Range Interpretation Comments UA pH (test code = UA pH) 6.0 1 5.0-8.0 N [facility] CenterUbqtkdsFMQFVSBREI8348-84-16 00:16:00Yellow *NA*(05/07/2011 18:16:00) [facility] ZPZBOTK4524-10-67 06:51:06465Uzgznftg [facility] DKLKNAVGN6075-01-63 04:20:00Negative (04/19/2011 22:20:00)[facility] ZTMVHETGK6720-03-87 04:20:004.1[facility] CwgauzaHQERLOBDE0819-28-25 04:20:0015 [facility] NorhwkjIAKKAEXXK8229-89-90 04:20:009.2[facility]annCHEMISTRY 2011-04-20 04:20:0096[facility] UttlkcmFIHSBYXUI3548-09-45 04:20:0016.2[facility] KclxngzBIOTCZUQJ9056-14-40 04:20:0024[facility] TjxjlnlJUFYCPFOF2105-09-66 04:20:004.0[facility] PiwzhceMLUSVFKMF8827-51-69 04:20:008.1[facility] CTCBQSKUC5117-02-66 04:20:000.4[facility] RdspjtwOGJMRNPZD8131-53-75 04:20:0092 [facility] BfdcaosTYLVUBJWS1678-50-54 04:20:004[facility] FcjwymgSZATFVJYI6429-60-94 04:20:0014[facility] PxgbjcmYTTLOPUCB3442-44-32 04:20:001.0[facility] NHIUELOKL2075-39-10 04:20:42070Gabdlspk AxnlyshWFPWPYWUF4366-83-74 04:20:000.8 [facility] BoetbfrKQYESHLJN0882-86-55 04:20:0012[facility]annCHEMISTRY 2011-04-20 04:20:004.2[facility] SmgdxvvTMKCJSRWE8187-85-74 04:20:90241Hlbqypyw QouhrzcDWHCARFOL5307-39-25 04:20:94562Pifeoizx SjuusitBGZYXDYJI7455-14-71 04:20:0070[facility] TmmifnjPUOLQBLSMM6519-45-68 04:20:007.9[facility] XUPASROWOK3448-82-37 04:20:41122Gjntovbq OdksfoaDYVYKMGMTA2530-04-32 04:20:00 4.54[facility] KblgiceBXSBLRQDCD4719-74-06 04:20:0013.3[facility]annHEMATOLOGY 2011-04-20 04:20:00 Test Item Value Reference Range Interpretation Comments MCH (test code = MCH) 29.3 pg 27.0-31.0 N [facility] SomijntIIVQBCCHTC0069-45-92 04:20:0033.9[facility]annHEMATOLOGY 2011-04-20 04:20:0014.0[facility] SwkezrpYCODBTDVNM9115-62-86 04:20:0039.3[facility] SbobbygNPXDVZURKV6986-51-06 04:20:0086.5[facility] MtnzsusMKYJIOEDKR3879-45-22 04:20:008.6[facility] FsrhhxyAIYQSSHEHX9241-73-57 04:20:000.1[facility] XCBPLKXCXX6572-90-92 04:20:000.1[facility] JhsumxlQWONMHDSOP1135-84-66 04:20:000.9 [facility] KfuhuktDWDNLVGASU3793-54-71 04:20:0019.9[facility]annHEMATOLOGY 2011-04-20 04:20:005.4[facility] AewzuiaTOEPQBVDYV0466-22-49 04:20:0073.1[facility] DqyvugkSSUOZTNNFZ5422-99-24 04:20:001.7[facility] UomeeutQTVUDPAFYR3689-15-53 04:20:000.5[facility] ObkrfeuALNMRARVGN7412-96-58 04:20:000.7[facility] FODYYNJCDL0294-85-13 04:20:006.3[facility] DambfjhLRAFZTPBUX1751-22-96 02:29:00 Negative *NA*(04/19/2011 20:29:00)[facility] YwkdybrKWMTSVGJLM7738-27-00 02:29:00 Negative *NA*(04/19/2011 20:29:00)[facility] FtljgmmCWLTJCKOFQ2650-24-66 02:29:00 Negative (04/19/2011 20:29:00)[facility] RlqoionTJSKCAHHTO0775-91-19 02:29:00 Negative (04/19/2011 20:29:00)[facility] XzoyovcQAEZVYUNMS6150-35-68 02:29:00 Test Item Value Reference Range Interpretation Comments UA pH (test code = UA pH) 6.0 1 5.0-8.0 N [facility] XdoxbqjAQTPMGQOVO4083-53-69 02:29:00>=1000 mg/dL *ABN*(04/19/2011 20:29:00)[facility] HhppmkmVDJTJAWQBV5373-46-97 02:29:00Performed (04/19/2011 20:29:00)[facility] FkoelkfBRLCPCOOAM3684-28-45 02:29:00Negative (04/19/2011 20:29:00)[facility] JaprlozYYKDKAJNCV1595-59-86 02:29:000.2[facility] SQQXDKJUFI3874-89-78 02:29:00Negative (04/19/2011 20:29:00)[facility] CXSMKOEQOI8403-04-83 02:29:00Occasional /HPF (04/19/2011 20:29:00)[facility] RcokfqpMKSNSECPSB3164-66-73 02:29:00Occasional /LPF (04/19/2011 20:29:00) [facility] GbghfwiSFXVTWQQAK0661-23-67 02:29:003-5 /HPF (04/19/2011 20:29:00) [facility] CekixbsQZCHIRSLCV7964-28-76 02:29:000-2 /HPF (04/19/2011 20:29:00) [facility] DnofekbIJWJTJEGNR2935-13-25 02:29:00Clear (04/19/2011 20:29:00)[facility] JiyfxjzZTMGOJWYGP4818-63-62 02:29:00Yellow *NA*(04/19/2011 20:29:00)[facility]annBED[facility] GLUCOSE XUYHGCC7245-74-75 05:47:92457Uxakzhsg HermannCHEMISTRY 2011-03-26 02:45:00<3[facility] UuavrqiEAZTPXFBZ5847-87-05 02:45:009.2[facility] CkwghraJDJUEPDBH5013-81-23 02:45:0014.0[facility] OrihpxkJQYKWUJHK6299-74-91 02:45:0025[facility] UasyysuNKYTNKCFK6480-61-23 02:45:0097[facility] XZCNVGHVQ4677-98-26 02:45:004.0[facility] HmgeafvDYIJDCEYX4861-74-43 02:45:000.7 [facility] WwatzweCPEOJUQLU0093-14-72 02:45:92483Kcrnywrx HermannCHEMISTRY 2011-03-26 02:45:000.5[facility] PjqoupjBKTNTSBHM7847-52-92 02:45:0069[facility] WifoeaiUYCVSIKQQ4616-71-04 02:45:0014[facility] BykyrnyIIPYRJFEH7039-16-74 02:45:003.9[facility] MezapguKJWIKNBAD2929-71-04 02:45:007.8[facility] MBFHABFRD5199-52-20 02:45:0019[facility] SgsrvvqERNXCBLCV0021-20-64 02:45:001.0 [facility] EbxtjkrKHNYHDEBY4337-83-32 02:45:003.9[facility] HermannCHEMISTRY 2011-03-26 02:45:0013[facility] AicahmaORDQVTMAM5802-81-77 02:45:02110Unytxeri KytmslcQQDXFCQYN4066-23-68 02:45:77084Lbelwhwx LthnipjLTCFPUBFJR4803-42-66 02:45:0012.7[facility] RqgivvkXRGFXQVACB1961-28-12 02:45:0014.0[facility] DPPGZLTXMD4961-03-27 02:45:0036.9[facility] CrgzpihUCVVBZFFEO3036-26-00 02:45:00 85.5[facility] EawatcvECDBDMMIBW0936-84-57 02:45:00 Test Item Value Reference Range Interpretation Comments MCH (test code = MCH) 29.5 pg 27.0-31.0 N [facility] CrvjvelBOOYUMEZVN8140-81-94 02:45:0034.5[facility]annHEMATOLOGY 2011-03-26 02:45:23013Brfivvtl VygqgmvIRTJMYHNWB2638-37-48 02:45:008.2[facility] CgvqnxkMCIKECLDGT9679-04-65 02:45:006.9[facility] ImikjakDDEDVIWYCK7340-07-61 02:45:004.32[facility] MbwpcwjOYYLWOQBBS2343-09-51 02:45:000.5[facility] AOMBEWQJHI8629-43-30 02:45:004.6[facility] VjgvunsTLTZGGYYEH7005-22-42 02:45:001.9 [facility] UjxlxrgAFYRZPNKOH7377-29-84 02:45:000.3[facility] HermannHEMATOLOGY 2011-03-26 02:45:000.1[facility] IekxuoqZECQCZPXTO8482-78-09 02:45:000.0[facility] QnzyqtlLMNMWAWEFG6804-13-44 02:45:0027.2[facility] NevngoqXLYOFELTMJ8355-64-34 02:45:0066.3[facility] GbcbvdzXQJHSVUEXU4717-45-74 02:45:004.8[facility] NUQBXJKYOX5647-73-58 02:45:001.2[facility] KqnmcrxLXEHVWOEBM0240-19-60 02:00:00 Occasional /HPF (03/25/2011 20:00:00)[facility] QuwldqcDGQKZIIGPF8752-68-54 02:00:00Occasional /HPF *ABN*(03/25/2011 20:00:00)[facility]annURINALYSIS 2011-03-26 02:00:00Rare /LPF (03/25/2011 20:00:00)[facility]annURINALYSIS 2011-03-26 02:00:000-2 /HPF (03/25/2011 20:00:00)[facility]annURINALYSIS 2011-03-26 02:00:000-2 /HPF (03/25/2011 20:00:00)[facility]annURINALYSIS 2011-03-26 02:00:00Negative (03/25/2011 20:00:00)[facility]annURINALYSIS 2011-03-26 02:00:00Performed (03/25/2011 20:00:00)[facility]annURINALYSIS 2011-03-26 02:00:00Negative (03/25/2011 20:00:00)[facility]annURINALYSIS 2011-03-26 02:00:00Negative (03/25/2011 20:00:00)[facility]annURINALYSIS 2011-03-26 02:00:000.2[facility] OmfmpesOQUMHUCLFY5492-88-76 02:00:00Yellow *NA*(03/25/2011 20:00:00)[facility] FmnkcxwSLQKRXLUUD3241-03-72 02:00:00Clear (03/25/2011 20:00:00)[facility] GxjlesyXUTKKRZVSI4541-21-29 02:00:00Negative *NA*(03/25/2011 20:00:00)[facility] AtkwrohRXXPBGZXGH4777-68-42 02:00:00>=1000 mg/dL *ABN*(03/25/2011 20:00:00)[facility] TsjpkcyEWUOZHMDCB0196-71-06 02:00:00 Negative *NA*(03/25/2011 20:00:00)[facility] TtpraroAWRHCYAZES0037-81-30 02:00:00 Test Item Value Reference Range Interpretation Comments UA pH (test code = UA pH) 6.0 1 5.0-8.0 N [facility] VnxkiggBSVQKCUSEI3153-12-22 02:00:00Negative (03/25/2011 20:00:00) [facility] HermannBEDSIDE GLUCOSE WJOUEGA8341-82-57 16:26:43846.0[facility] KQFTIZTOL5965-29-86 15:30:00<0.6[facility] ZzwizjiKZUOGBEMC6919-89-16 15:30:00 <0.5[facility] FqveecfGDGIYYOOC8502-17-62 15:30:0077.0[facility]annCHEMISTRY 2011-02-11 15:30:0077.0[facility] HvucndyACWIOASEQ5171-88-85 15:30:00<0.02 [facility]annB[facility] DPLDGOM9954-62-92 12:00:11156.0[facility] XLDMAWUYT9219-91-72 09:29:001.5[facility] TwfjgciRMNRJBCSJ2479-25-60 09:29:85214.0 [facility] GyggsfgSOFVFISGT3014-33-24 09:29:0011.0[facility] HermannCHEMISTRY 2011-02-11 09:29:007.8[facility] ViqnakgGLUJBBFYL1096-03-76 09:29:0013.7[facility] QdnmwkmVDPGQWDLV1540-70-58 09:29:000.6[facility] RpaguziQTARBWQCQ8547-20-68 09:29:34629.0[facility] OfixjvgNKVTPVBRE8594-75-12 09:29:003.7[facility] JBGYAEATD5236-35-82 09:29:85640.0[facility] AoqnkoqYLDIATJYC2712-37-76 09:29:00 24.0[facility] VozivwkSVORKXYOR7594-27-63 09:29:00<0.02[facility] OZKJURZVH2820-80-39 09:29:0071.0[facility] QopyfmzOFUAHWSMX7763-38-30 09:29:0071.0 [facility] WghhxouNGEIUOTGKA0759-81-49 09:29:007.8[facility]annHEMATOLOGY 2011-02-11 09:29:0014.1[facility] PgcoekmGAQKWAJPFB4429-24-54 09:29:006.8[facility] PqpoxjaCNWZIGLMQX1798-47-26 09:29:0011.8[facility] WmxfnrpLDYVDACHXC8518-92-61 09:29:004.11[facility] VmmcvkrBDBFIPIYEB0897-47-61 09:29:0035.3[facility] VKWEOZNVEE5821-54-09 09:29:00 Test Item Value Reference Range Interpretation Comments MCH (test code = MCH) 28.7 pg 27.0-31.0 N [facility] RzsdtqeARKUTCCZDB5960-92-58 09:29:0085.7[facility]annHEMATOLOGY 2011-02-11 09:29:59590.0[facility] XsnsouxBMSDMFYBOQ3193-14-86 09:29:0033.5 [facility] ZduelxiQFKWBDMOSW1271-84-36 09:29:0026.3[facility]annHEMATOLOGY 2011-02-11 09:29:0065.8[facility] VroeymnJFEDZXAEAH9728-45-34 09:29:006.1[facility] PyvpxogSXYWYNHNRT2690-98-35 09:29:001.2[facility] SvcqbixIQAGJVUCKZ7308-42-68 09:29:000.6[facility] SblwkeiYFBJDPFKYG3437-77-54 09:29:004.5[facility] TCAYRGMMIG3420-70-71 09:29:001.8[facility] TrgozcvXYTNMLXKHT6423-76-31 09:29:000.4 [facility] ZybldwfCYHAQKTRDE5311-26-70 09:29:000.0[facility]annHEMATOLOGY 2011-02-11 09:29:000.1[facility]annBEDSIDE GLUCOSE VZOBPTK7496-62-76 05:34:00 151.0[facility] LrjafibMUJLILCHWR6403-81-04 03:26:00>=1000 mg/dL *ABN*(02/10/2011 22:26:00) [facility] CenterVepfakeWIWZAPHMAW7023-49-38 03:26:00 Negative mg/dL *NA*(02/10/2011 22:26:00) ??[facility] VvnhzjwLDRBVTGRKD9289-72-92 03:26:00 Test Item Value Reference Range Interpretation Comments UA pH (test code = UA pH) 6.5 1 5.0-8.0 N [facility] QolkxglVIRXCIVMLU9445-77-47 03:26:00Negative mg/dL (02/10/2011 22:26:00) ??[facility] IniayzcLFJNBPJYJB6941-51-32 03:26:00Negative (02/10/2011 22:26:00) ??[facility] ThjifclYIHHRFUDSO5087-94-58 03:26:00Negative (02/10/2011 22:26:00) ??[facility] TdifahvBUAYJFIDWK2538-29-46 03:26:000.2[facility] KBXEPXKLPC5848-54-59 03:26:00Negative (02/10/2011 22:26:00) ??[facility] MGTCTXQTLH2337-93-30 03:26:00Negative *NA*(02/10/2011 22:26:00) ??[facility] NjqslpoGWYWYZOUXN1949-46-28 03:26:00Clear (02/10/2011 22:26:00) ??[facility] QgucgquZPURCAYSDQ2505-12-35 03:26:00 Test Item Value Reference Range Interpretation Comments UA Spec Grav (test code = UA Spec 1.01 1 N Grav) [facility] WeomeznIFRFQBNORO2859-23-36 03:26:00Yellow *NA*(02/10/2011 22:26:00) ?? [facility] FzsxsklPTBYEZAQNO7070-85-04 03:26:000-2 /HPF (02/10/2011 22:26:00) ?? [facility] DyfqurkKUTNJXEBJQ1855-19-42 03:26:006-10 /HPF *ABN*(02/10/2011 22:26:00) ??[facility] XdiwpkxOGYCYLKDIF2825-16-73 03:26:00Few /LPF (02/10/2011 22:26:00) ??[facility] SurbsxtMCZXGBWIEX0090-96-47 03:26:00Few /HPF (02/10/2011 22:26:00) ??[facility] CjatdunRUBQDDLSXC0079-14-13 03:26:00Occasional /HPF *ABN*(02/10/2011 22:26:00) ??[facility] LrcxiwaLGAEZKWSFS3631-60-98 03:26:00 Performed (02/10/2011 22:26:00) ??[facility] EwhdfyhJJBJSJJNP0591-14-29 03:03:00 Negative *NA*(02/10/2011 22:03:00) ??[facility] OqgnsnrDHCNQZIHQ2147-27-33 03:03:00<0.5[facility] NpzgxbnEFMITSBXO9893-01-61 03:03:00<0.02[facility] VasxnpoBNDVXEEMB5974-03-88 03:03:007.0[facility] UnejrpeUDRUONPDL7917-61-29 03:03:004.0[facility] FptzzukTEHUQPEOL8376-29-00 03:03:007.5[facility] WRBWSGNAN5971-69-27 03:03:00 Test Item Value Reference Range Interpretation Comments A/G Ratio (test code = A/G Ratio) 1.1 1 0.7-1.6 N [facility] ScmaopmFDMZEPBJE9582-45-32 03:03:003.5[facility]annCHEMISTRY 2011-02-11 03:03:0014.0[facility] BvldfvtLZHJQWLEH9144-83-08 03:03:000.3[facility] XojcowgWTRUPPCAR5671-18-55 03:03:0069.0[facility] TlldrdtJAALJDECS6515-33-59 03:03:0022.0[facility] NipfkxfZAHMKHEZK8706-17-72 03:03:00 Test Item Value Reference Range Interpretation Comments B/C Ratio (test code = B/C Ratio) 20.0 1 6-25 N [facility] FijvsqkLIITDFIGJ3900-75-41 03:03:0096.0[facility] HermannCHEMISTRY 2011-02-11 03:03:008.7[facility] PjwvjrwVAWUOLWMI3707-03-28 03:03:0017.3[facility] DcrjgbpPDCLYKZQM6322-91-43 03:03:79827.0[facility] OyldoznJJVTIKSAE3391-78-86 03:03:41796.0[facility] IidaiqkSESKDXYBA6834-31-47 03:03:000.6[facility] WDIUPBXPG3564-61-49 03:03:0012.0[facility] HpvaaqvURPCDZJGX7790-20-19 03:03:004.3 SvfopeqZRKYKHOZT0873-06-09 03:03:00Negative (02/10/2011 22:03:00) ?? [facility] QebpdrsQFXNIACIZI5164-44-05 03:03:003.9[facility]annHEMATOLOGY 2011-02-11 03:03:002.0[facility] PqbftmsNWRRGSGHWM3180-96-75 03:03:000.5[facility] PzjlpmxRSWUYKDFDP2231-07-85 03:03:000.4[facility] XqhhlzgWFFCTVNSXE6922-11-20 03:03:000.1[facility] GksslekMTSUMVFAGN7432-36-18 03:03:0060.9[facility] QJGSLWLISZ4327-41-31 03:03:0031.7[facility] WzawomqJNUDYPXKOF8885-00-31 03:03:00 1.2[facility] QhiatofUWYRGOKOQO7821-73-82 03:03:005.7[facility]annHEMATOLOGY 2011-02-11 03:03:000.0[facility] DrdyavuGPMCULZFRR0982-54-41 03:03:00 Test Item Value Reference Range Interpretation Comments PT (test code = PT) 13.9 s 12.0-14.7 [facility]BgsexkhVGYWSECONW3658-26-17 03:03:00 Test Item Value Reference Range Interpretation Comments PTT (test code = PTT) 28.4 s 22.9-35.8 N [facility] CenterHrwzteaYBQYQUIJOP7789-24-54 03:03:00 Test Item Value Reference Range Interpretation Comments INR (test code = INR) 1.07 1 0.85-1.17 N [facility] CenterDbkhzhpQTBBYSZPEO5038-21-29 03:03:0033.7[facility]annHEMATOLOGY 2011-02-11 03:03:0014.3[facility] SvsmfnuGDFZSUBPQX3444-43-20 03:03:51206.0 [facility] CenterIhxcgfmYRZYDQUTPD6188-39-21 03:03:007.9[facility]annHEMATOLOGY 2011-02-11 03:03:0085.9[facility] NhbasoxSTEJKSJRBJ4085-41-66 03:03:004.43[facility] GydymnqTXHDFNKVZK8271-36-45 03:03:0038.1[facility] TrksneiCGPOYEIUWO3615-76-00 03:03:0012.8[facility] JnvtiwlOZHKRLHEUL2508-44-04 03:03:00 Test Item Value Reference Range Interpretation Comments MCH (test code = MCH) 28.9 pg 27.0-31.0 N [facility] CenterSyevhqnHFUKRTWFIK6318-16-93 03:03:006.5[facility]annHEMATOLOGY 2011-02-11 03:03:001.1[facility] HermannBEDSIDE GLUCOSE ZGLENHD1718-46-46 16:39:00 175.0[facility]annBEDSIDE GLUCOSE OMJFCGV5668-49-00 12:16:0088.0[facility]annBEDSIDE GLUCOSE LTSMYYT9678-42-70 11:27:0070.0[facility] HermannCHEMISTRY 2011-01-15 10:45:00<0.6[facility] DajkkahGPUKSCDIP6952-01-42 10:45:00<0.5 [facility] ZqfamcxWEAOUDPCN7580-09-08 10:45:00<0.02[facility] HermannCHEMISTRY 2011-01-15 10:45:0088.0[facility] LyukvfzUJYYKNRWH8141-08-93 10:45:000.6[facility] VkcxxzvJOMTAAXJE7710-21-23 10:45:003.4[facility] EpvmdwvYNVTEMWSB9239-86-99 10:45:72928.0[facility] TjlaqilXIGKJTAFP0769-24-74 10:45:0013.0[facility] DMTEDDZEX7736-06-45 10:45:0025.0[facility] CuzxgitZCOZSXFKV1830-68-53 10:45:008.0 [facility] BbsirhnIASEXWDVP5849-50-64 10:45:0018.4[facility] HermannCHEMISTRY 2011-01-15 10:45:55846.0[facility] UfnrqhaQSHGZAKME7879-30-69 10:45:17747.0 [facility] AaswrrzYYTTVMCBH9726-14-03 10:45:0096.0[facility] HermannCHEMISTRY 2011-01-15 10:45:00 Test Item Value Reference Range Interpretation Comments CHD Risk (test code = CHD Risk) 3.8 1 3.90-5.80 L [facility] QfknuigIRTWFXNJL9107-88-32 10:45:0045.0[facility] HermannCHEMISTRY 2011-01-15 10:45:74205.0[facility] GcuteqmDICZUMJZI4276-20-26 10:45:86681.0 [facility] TaothwhQEMIYQCNA4128-15-50 01:43:00<0.5[facility] HermannCHEMISTRY 2011-01-15 01:43:00<0.6[facility] UmvmgviCNLVNBVYT2793-39-44 01:43:0083.0 [facility] WepwomiDZSTJSAVD3362-34-67 01:43:00<0.02[facility]annCHEMISTRY 2011-01-14 21:36:00Negative (01/14/2011 16:36:00) ??[facility]annCHEMISTRY 2011-01-14 20:36:00<0.6[facility] SntalfsBZCULKEVD1115-63-10 20:36:0013.0 [facility] VoftoieFZUATZNKJ8151-97-95 20:36:00<3.0[facility] HermannCHEMISTRY 2011-01-14 20:36:000.5[facility] YtboftpOETGMMOZX0126-21-30 20:36:003.8[facility] HlcmcbzFTCNDXBCW0465-00-27 20:36:0017.0[facility] OqurnwgAIVKDIZNC3428-07-42 20:36:0071.0[facility] FqiumrmRIFHNKBFB0037-28-46 20:36:003.8[facility] VAPWZQQWC1689-88-21 20:36:82165.0[facility] VimvywxDOOBBFLLL0107-55-79 20:36:00 22.0[facility] ZgsebigYEWXVBHUK6767-85-61 20:36:0014.8[facility] HermannCHEMISTRY 2011-01-14 20:36:008.6[facility] YwvmimtSTMLMWGVL2954-16-72 20:36:07295.0[facility] LqmosejCOHQETVQV9041-78-53 20:36:003.6[facility] RczqpvxGBTNNEFNY2804-18-77 20:36:00 Test Item Value Reference Range Interpretation Comments A/G Ratio (test code = A/G Ratio) 1.1 1 0.7-1.6 N [facility] RjnzfzjYDJYFHWBS5140-18-16 20:36:00 Test Item Value Reference Range Interpretation Comments B/C Ratio (test code = B/C Ratio) 11.0 1 6-25 N [facility] LwhoxcuGEHJAMFCT0537-62-34 20:36:007.4[facility]annCHEMISTRY 2011-01-14 20:36:10458.0[facility] RwelmeqJRZMKPFGE1590-77-62 20:36:009.0[facility] JsybqpfHDTYMNJSG1037-66-45 20:36:000.8[facility] ZewqjunIQZJWLXFF2030-33-07 20:36:00<0.02[facility] MpmikcfESYSFBNWX1190-87-88 20:36:00<0.5[facility] JoyxmnwBDFMTFHNC6148-48-36 20:36:0078.0[facility] VosnrgkACBJVIIKIT5262-25-70 20:36:000.3[facility] NuhaioqYHXFLNKQKO5577-52-08 20:36:001.7[facility] AYEKTMVSSV6565-20-38 20:36:003.5[facility] XzlhvaaYQBWSSYKLS9519-91-11 20:36:000.9 [facility] UlffafgQSUZUSLVAX2383-07-65 20:36:000.9[facility]annHEMATOLOGY 2011-01-14 20:36:000.0[facility] ZylfomoFHPAYMSIAD8330-18-37 20:36:000.1[facility] UvtwlowAVRXZQWLTS7294-56-56 20:36:0030.7[facility] GuiwtowJEFMLFEMML6004-20-21 20:36:0063.0[facility] JhtdeljRXCVWENFWH6792-87-76 20:36:004.5[facility] ABMNEVMICX8386-42-03 20:36:0014.6[facility] WqyqlgjWNGXSWFHBH6207-28-34 20:36:00 34.0[facility] LhcdtafOORNJWZZLZ4826-46-31 20:36:008.0[facility]annHEMATOLOGY 2011-01-14 20:36:38990.0[facility] FoffyxpWMIKUWXTEF0392-28-81 20:36:00 Test Item Value Reference Range Interpretation Comments MCH (test code = MCH) 28.8 pg 27.0-31.0 N [facility] TcpclgkLVWGLBMZME1903-14-12 20:36:0013.2[facility]annHEMATOLOGY 2011-01-14 20:36:004.6[facility] ZruvgwtKQJYLCSRNS3039-15-47 20:36:0038.9[facility] GvoczcmVRAPBSGTHC9543-51-57 20:36:0084.6[facility] ZwhniuqSRCTMGLCQB2543-08-02 20:36:005.6[facility] FozcxkpDFWMHAIVSK4579-40-59 20:36:00 Test Item Value Reference Range Interpretation Comments PT (test code = PT) 13.6 s 12.0-14.7 [facility]EOOJX8494-97-30 20:36:00 Test Item Value Reference Range Interpretation Comments PTT (test code = PTT) 30.2 s 22.9-35.8 N [facility] HospitalQkknjziXAGNVAZJPX3274-20-16 20:36:00 Test Item Value Reference Range Interpretation Comments INR (test code = INR) 1.04 1 0.85-1.17 N [facility] HospitalXmtqyueFFBJFJVFFS7862-99-24 20:36:001.5[facility]
--- NOTE | 2019-09-29 15:14 | RAD REPORT ---
EXAM DESCRIPTION: RAD - Foot Right 3 View - 09/29/2019 3:00 pm CLINICAL HISTORY: Right foot pain FINDINGS: No fracture or dislocation is seen Osteoporosis . Large calcaneal spur
[2019-09-29] MEDS ORDERED: SMZ./TMP. 800/160 MG TABLET ONE (15:16)
[2019-09-29] MEDS ORDERED: NA CHLORIDE 0.9% 1,000 ML ONE (15:17)
[2019-09-29] MEDS ORDERED: DOXYCYCLINE 100 MG CAP PO ONE (15:17)
[2019-09-29 16:05] LABS: Absolute Lymphocytes (CBC) 2.6 K/uL (0.7-4.9); Basophils % 0.7 % (0-1.3); Hematocrit 32.3 % (36.0-45.0); Lymphocytes % 26.3 % (15.3-44.8); RBC Red Blood Cell Count 3.92 M/uL (3.86-4.86)
[2019-09-29] MEDS ORDERED: GABAPENTIN 300 MG CAP ONE (16:10)
[2019-09-29 16:25] LABS: Albumin 3.5 g/dL (3.4-5.0); Bilirubin Total 0.4 mg/dL (0.2-1.0); Potassium 4.3 mmol/L (3.5-5.1); Protein, Total 8.2 g/dL (6.4-8.2)
--- NOTE | 2019-09-29 16:40 | EDPHYS ---
Physician Documentation [facility] Name: Melissa De Oliveira Age: 54 yrs Sex: Female : 1965 Arrival Date: 09/29/2019 Time: 12:36 Bed 14 Private MD: KRISTA Physician Yogesh Jimenez HPI: 09/28 14:46 This 54 yrs old Female presents to ER via Ambulatory with complaints of Foot thomas Pain, Feet Swelling. 14:46 The patient presents with decreased range of motion, pain, swelling, tenderness. The thomas complaints affect the right foot, dorsum of right foot, right third toe, right fourth toe, Right third toenail and Right fourth toenail. Context: The problem was sustained at an unknown location. Onset: The symptoms/episode began/occurred 2 day(s) ago. Modifying factors: The symptoms are alleviated by elevation of extremity, the symptoms are aggravated by weight bearing, movement. Associated signs and symptoms: The patient has no apparent associated signs or symptoms. Severity of symptoms: At their worst the symptoms were mild, in the emergency department the symptoms are unchanged. The patient has not experienced similar symptoms in the past. 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 - Social history:: Smoking status: Patient denies any tobacco usage or history of. - Family history:: not pertinent. ROS: 14:46 Constitutional: Negative for fever, chills, and weight loss, Eyes: Negative for injury, thomas pain, redness, and discharge, ENT: Negative for injury, pain, and discharge, Neck: Negative for injury, pain, and swelling, Cardiovascular: Negative for chest pain, palpitations, and edema, Respiratory: Negative for shortness of breath, cough, wheezing, and pleuritic chest pain, Abdomen/GI: Negative for abdominal pain, nausea, vomiting, diarrhea, and constipation, Back: Negative for injury and pain, : Negative for injury, bleeding, discharge, and swelling, Neuro: Negative for headache, weakness, numbness, tingling, and seizure, Psych: Negative for depression, anxiety, suicide ideation, homicidal ideation, and hallucinations, Allergy/Immunology: Negative for hives, rash, and allergies, Endocrine: Negative for neck swelling, polydipsia, polyuria, polyphagia, and marked weight changes, Hematologic/Lymphatic: Negative for swollen nodes, abnormal bleeding, and unusual bruising. 14:46 MS/extremity: Positive for decreased range of motion, erythema, pain, swelling, tenderness, of the dorsum of right foot. Exam: 14:46 Constitutional: This is a well developed, well nourished patient who is awake, alert, thomas and in no acute distress. Head/Face: Normocephalic, atraumatic. Eyes: Pupils equal round and reactive to light, extra-ocular motions intact. Lids and lashes normal. Conjunctiva and sclera are non-icteric and not injected. Cornea within normal limits. Periorbital areas with no swelling, redness, or edema. ENT: Nares patent. No nasal discharge, no septal abnormalities noted. Tympanic membranes are normal and external auditory canals are clear. Oropharynx with no redness, swelling, or masses, exudates, or evidence of obstruction, uvula midline. Mucous membranes moist. Neck: Trachea midline, no thyromegaly or masses palpated, and no cervical lymphadenopathy. Supple, full range of motion without nuchal rigidity, or vertebral point tenderness. No Meningismus. Chest/axilla: Normal chest wall appearance and motion. Nontender with no deformity. No lesions are appreciated. Cardiovascular: Regular rate and rhythm with a normal S1 and S2. No gallops, murmurs, or rubs. Normal PMI, no JVD. No pulse deficits. Respiratory: Lungs have equal breath sounds bilaterally, clear to auscultation and percussion. No rales, rhonchi or wheezes noted. No increased work of breathing, no retractions or nasal flaring. Abdomen/GI: Soft, non-tender, with normal bowel sounds. No distension or tympany. No guarding or rebound. No evidence of tenderness throughout. Back: No spinal tenderness. No costovertebral tenderness. Full range of motion. Skin: Warm, dry with normal turgor. Normal color with no rashes, no lesions, and no evidence of cellulitis. Neuro: Awake and alert, GCS 15, oriented to person, place, time, and situation. Cranial nerves II-XII grossly intact. Motor strength 5/5 in all extremities. Sensory grossly intact. Cerebellar exam normal. Normal gait. Psych: Awake, alert, with orientation to person, place and time. Behavior, mood, and affect are within normal limits. 14:46 Musculoskeletal/extremity: Extremities: noted in the dorsum of right foot, right third toe, right fourth toe, Right third toenail and Right fourth toenail: decreased ROM, pain, swelling, tenderness. 15:15 Musculoskeletal/extremity: DVT Exam: No signs of deep vein thrombosis. negative Homans' thomas sign noted on exam, no appreciated bluish discoloration, no erythema, no increased warmth, pain, swelling, tenderness, that is mild, dorsum of right foot. Vital Signs: 12:44 BP 104 / 64; Pulse 104; Resp 14; Temp 97.4(TE); Pulse Ox 98% on R/A; Weight 47.63 kg; ss Height 5 ft. 4 in. (162.56 cm); Pain 7/10; 15:00 BP 101 / 60; Pulse 84; Resp 17; Pulse Ox 98% on R/A; tw2 16:00 BP 100 / 69; Pulse 74; Resp 16; Pulse Ox 99% on R/A; tw2 17:09 BP 101 / 63; Pulse 84; Resp 16; Pulse Ox 100% on R/A; tw2 12:44 Body Mass Index 18.02 (47.63 kg, 162.56 cm) ss MDM: 14:07 Patient medically screened. thomas 14:49 Data reviewed: vital signs, nurses notes, lab test result(s), CBC, electrolytes, [facility] hepatic panel, radiologic studies. 14:55 Differential diagnosis: fracture, sprain, cellulitis. Data interpreted: Cardiac thomas monitor: rate is 104 beats/min, rhythm is normal sinus rhythm, Pulse oximetry: on room air is 98 %. Test interpretation: by ED physician or midlevel provider: plain radiologic studies. Counseling: I had a detailed discussion with the patient and/or guardian regarding: the historical points, exam findings, and any diagnostic results supporting the discharge/admit diagnosis, the presence of at least one elevated blood pressure reading (>120/80) during this emergency department visit, lab results, radiology results, the need for outpatient follow up, for definitive care. Medical screen evaluation completed. EMTALA emergency medical condition absent. Medical screen evaluation completed. EMTALA emergency medical condition absent. Response to treatment: the patient's symptoms have mildly improved after treatment. 15:14 ED course: discussed plan, tight blood glucose control, will follow up ,return if worse.[facility] 09/28 14:45 Order name: CBC with Diff; Complete Time: 16:14 [facility] 09/28 14:45 Order name: Comprehensive Metabolic Panel; Complete Time: 16:38 [facility] 09/28 14:45 Order name: Foot Right 3 View XRAY; Complete Time: 15:51 [facility] 09/28 17:19 Order name: Glucose, Ancillary Testing EDUT 09/28 15:00 Order name: IV Start; Complete Time: 15:51 tw2 09/28 17:18 Order name: Post-op shoe; Complete Time: 17:21 tw2 Administered Medications: 15:10 Drug: Bactrim (160 mg-800 mg (DS) 1 tablet Route: PO; tw2 17:04 Follow up: Response: No adverse reaction tw2 15:10 Drug: Doxycycline 100 mg Route: PO; tw2 17:04 Follow up: Response: No adverse reaction tw2 15:55 Drug: NS 0.9% 1000 ml Route: IV; Rate: 1 bolus; Site: left wrist; tw2 17:11 Follow up: Response: No adverse reaction; IV Status: Completed infusion; IV Intake: tw2 1000ml 16:00 Drug: Gabapentin 300 mg Route: PO; tw2 17:04 Follow up: Response: No adverse reaction tw2 17:17 Not Given (Patient Refused): LanTUS 30 units Sub-Q once tw2 17:18 Not Given (Patient Refused): Insulin Regular Human 8 units IVP once tw2 Point of Care Testing: Blood Glucose: 17:09 Blood Glucose: 272 mg/dL; tw2 Ranges: Critical Glucose Levels:Adult <50 mg/dl or >400 mg/dl <40 mg/dl or >180 mg/dl Disposition: 09/29/19 16:40 Discharged to Home. Impression: Pain in right foot, Cellulitis and acute lymphangitis of other parts of limb - foot, Type 1 diabetes mellitus - poorly controlled. - Condition is Stable. - Discharge Instructions: Insect Bite, [id number], Insect Bite, Type 1 Diabetes Mellitus, Diagnosis, Adult, Cellulitis, Adult, [id number], Diabetes Mellitus and Food, Type 1 Diabetes Mellitus, Self Care, Adult, Type 1 Diabetes Mellitus, Diagnosis, Adult, [id number], Type 1 Diabetes Mellitus, Self Care, Adult, [id number], Foot Pain. - Prescriptions for gabapentin 300 mg Oral capsule - take 1 capsule by ORAL route 3 times per day; 60 capsule. Doxycycline Hyclate 100 mg Oral Tablet - take 1 tablet by ORAL route every 12 hours; 20 tablet. Bactrim DS 800- 160 mg Oral Tablet - take 1 tablet by ORAL route every 12 hours for 10 days; 20 tablet. Bactroban 2 % Topical Ointment - Apply to affected area 1 application by TOPICAL route every 12 hours; 30 gram. - Medication Reconciliation Form, Thank You Letter, Antibiotic Education, Prescription Opioid Use form. - Follow up: Private Physician; When: 2 - 3 days; Reason: Recheck today's complaints, Continuance of care, Re-evaluation by your physician. - Problem is new. - Symptoms have improved. Signatures: Dispatcher [employer] EDYogesh Sainz MD MD cha Smirch, Shelby, RN RN Jo Ann Overton RN RN tw2 Corrections: (The following items were deleted from the chart) 17:26 16:40 09/29/2019 16:40 Discharged to Home. Impression: Pain in right foot; Cellulitis tw2 and acute lymphangitis of other parts of limb - foot; Type 1 diabetes mellitus - poorly controlled. Condition is Stable. Discharge Instructions: Insect Bite, [id number], Insect Bite, Type 1 Diabetes Mellitus, Diagnosis, Adult, Cellulitis, Adult, Kmfr-zn-[id number], Diabetes Mellitus and Food, Type 1 Diabetes Mellitus, Self Care, Adult, Type 1 Diabetes Mellitus, Diagnosis, Adult, Diav-[id number], Type 1 Diabetes Mellitus, Self Care, Adult, Vqtv-[id number]-[id number], Foot Pain. Prescriptions for gabapentin 300 mg Oral capsule - take 1 capsule by ORAL route 3 times per day; 60 capsule, Doxycycline Hyclate 100 mg Oral Tablet - take 1 tablet by ORAL route every 12 hours; 20 tablet, Bactrim DS 800-160 mg Oral Tablet - take 1 tablet by ORAL route every 12 hours for 10 days; 20 tablet, Bactroban 2 % Topical Ointment - Apply to affected area 1 application by TOPICAL route every 12 hours; 30 gram. and Forms are Medication Reconciliation Form, Thank You Letter, Antibiotic Education, Prescription Opioid Use. Follow up: Private Physician; When: 2 - 3 days; Reason: Recheck today's complaints, Continuance of care, Re-evaluation by your physician. Problem is new. Symptoms have improved. thomas
--- NOTE | 2019-09-29 16:40 | ER ---
Nurse's Notes [facility] Name: Melissa De Oliveira Age: 54 yrs Sex: Female : 1965 Arrival Date: 09/29/2019 Time: 12:36 Bed 14 Private MD: Diagnosis: Pain in right foot;Cellulitis and acute lymphangitis of other parts of limb-foot;Type 1 diabetes mellitus-poorly controlled Presentation: 09/28 12:44 Chief complaint: Patient states: R foot swelling that began yesterday and L foot ss swelling that began this morning. Denies injury. Pt reports she had episodes of N/D Friday, but those symptoms went away yesterday. Coronavirus screen: Proceed with normal triage. Patient denies a cough. Patient denies shortness of breath or difficulty breathing. Patient denies measured and/or subjective temperature greater than 100.4F prior to today's visit. Patient denies travel on a cruise ship or to a country the [facility] currently lists as an affected area. Patient denies contact with known and/or suspected case of COVID-19. Ebola Screen: Patient denies exposure to infectious person. Patient denies travel to an Ebola-affected area in the 21 days before illness onset. Initial Sepsis Screen: Does the patient meet any 2 criteria? No. Patient's initial sepsis screen is negative. Does the patient have a suspected source of infection? No. Patient's initial sepsis screen is negative. Risk Assessment: Do you want to hurt yourself or someone else? Patient reports no desire to harm self or others. Onset of symptoms was September 27, 2019. 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 - Social history:: Smoking status: Patient denies any tobacco usage or history of. - Family history:: not pertinent. Screenin:24 Abuse screen: Denies threats or abuse. Nutritional screening: No deficits noted. tw2 Tuberculosis screening: No symptoms or risk factors identified. Fall Risk None identified. Assessment: 14:05 General: Appears in no apparent distress. slender, well groomed, Behavior is calm, tw2 cooperative, appropriate for age. Pain: Complains of pain in right foot. Neuro: Level of Consciousness is awake, alert, obeys commands, Oriented to person, place, time, situation. Cardiovascular: Heart tones S1 S2 Patient's skin is warm and dry. Respiratory: Airway is patent Respiratory effort is even, unlabored, Respiratory pattern is regular, symmetrical, Breath sounds are clear bilaterally. GI: No signs and/or symptoms were reported involving the gastrointestinal system. Abdomen is flat, Bowel sounds present X 4 quads. : No signs and/or symptoms were reported regarding the genitourinary system. EENT: No signs and/or symptoms were reported regarding the EENT system. Derm: Skin is intact, is healthy with good turgor, Skin is dry, Skin temperature is warm. Musculoskeletal: Swelling present in right foot with redness noted, pt reports "its just painful cause it so swollen and i have this tingling and stuff going on", provider notified. 14:35 Reassessment: provider at bedside at this time. tw2 17:17 Reassessment: Patient appears in no apparent distress at this time. No changes from tw2 previously documented assessment. Patient and/or family updated on plan of care and expected duration. Pain level reassessed. Patient is alert, oriented x 3, equal unlabored respirations, skin warm/dry/pink. pt states "no i had just ate before i came up here and i normally watch it real close, so no i do not want insulin now i just need this shoe on so i can go home, i will see my pcp about my foot soon.", provider notified. Vital Signs: 12:44 BP 104 / 64; Pulse 104; Resp 14; Temp 97.4(TE); Pulse Ox 98% on R/A; Weight 47.63 kg; ss Height 5 ft. 4 in. (162.56 cm); Pain 7/10; 15:00 BP 101 / 60; Pulse 84; Resp 17; Pulse Ox 98% on R/A; tw2 16:00 BP 100 / 69; Pulse 74; Resp 16; Pulse Ox 99% on R/A; tw2 17:09 BP 101 / 63; Pulse 84; Resp 16; Pulse Ox 100% on R/A; tw2 12:44 Body Mass Index 18.02 (47.63 kg, 162.56 cm) ED Course: 12:36 Patient arrived in ED. ag5 12:46 Triage completed. ss 12:47 Arm band placed on right wrist. ss 14:06 Bed in low position. Call light in reach. Pulse ox on. NIBP on. tw2 14:07 Yogesh Jimenez MD is Attending Physician. [facility] 14:22 Jo Ann Weaver RN is Primary Nurse. tw2 15:01 Foot Right 3 View XRAY In Process Unspecified. EDMS 15:32 Missed attempt(s): 22 gauge in left antecubital area. Bleeding controlled, band aid tw2 applied, catheter tip intact. Missed attempt(s): 22 gauge in right forearm. Bleeding controlled, band aid applied, catheter tip intact. 15:51 Inserted saline lock: 22 gauge in left wrist, using aseptic technique. Blood collected. ss 15:55 IV discontinued, intact, bleeding controlled, No redness/swelling at site. Pressure tw2 dressing applied. 17:21 No provider procedures requiring assistance completed. tw2 Administered Medications: 15:10 Drug: Bactrim (160 mg-800 mg (DS) 1 tablet Route: PO; tw2 17:04 Follow up: Response: No adverse reaction tw2 15:10 Drug: Doxycycline 100 mg Route: PO; tw2 17:04 Follow up: Response: No adverse reaction tw2 15:55 Drug: NS 0.9% 1000 ml Route: IV; Rate: 1 bolus; Site: left wrist; tw2 17:11 Follow up: Response: No adverse reaction; IV Status: Completed infusion; IV Intake: tw2 1000ml 16:00 Drug: Gabapentin 300 mg Route: PO; tw2 17:04 Follow up: Response: No adverse reaction tw2 17:17 Not Given (Patient Refused): LanTUS 30 units Sub-Q once tw2 17:18 Not Given (Patient Refused): Insulin Regular Human 8 units IVP once tw2 Point of Care Testing: Blood Glucose: 17:09 Blood Glucose: 272 mg/dL; tw2 Ranges: Intake: 17:11 IV: 1000ml; Total: 1000ml. tw2 Outcome: 16:40 Discharge ordered by MD. guzman 17:26 Discharged to home ambulatory. tw2 17: Condition: stable 17:26 Discharge instructions given to patient, Instructed on discharge instructions, follow up and referral plans. medication usage, Demonstrated understanding of instructions, follow-up care, medications, Prescriptions given X 4. 17:26 Patient left the ED. tw2 Signatures: Dispatcher [employer] EDYogesh Sainz MD MD cha Smirch, Shelby, RN RN ss Jo Ann Weaver RN RN tw2 Trino Johnson ag5
[2019-09-29 17:32] VITALS: TEMP 97.4
[2019-09-29 17:35] VITALS: BP 101/63; O2SAT 100
== END 2019-09-29 17:26 | disposition home or self-care (01) ==
LOC: ER 12:34
DX: L03.115 Cellulitis of right lower limb (principal); L03.125 Acute lymphangitis of right lower limb; E10.65 Type 1 diabetes mellitus with hyperglycemia; E10.40 Type 1 diabetes mellitus with diabetic neuropathy, unspecified; Z79.4 Long term (current) use of insulin; Z88.5 Allergy status to narcotic agent; Z88.8 Allergy status to other drugs, medicaments and biological substances
CPT/HCPCS: 85025; 36415; 82947; 80053; 73630; 96360; 99284; J7030

== ENCOUNTER 2019-11-15 18:47 | Emergency (ER) | payer OTHER ==
--- OUTSIDE RECORDS SUMMARY | 2019-11-15 18:49 | XMS REPORT | Clinical Summary ---
:1965 Author Organization [facility] Address [address] [place] [address] Care Team Providers Name Role Phone Denae [...] Not on file Results Not on fileafter 11/14/2018
--- OUTSIDE RECORDS SUMMARY | 2019-11-15 18:56 | XMS REPORT | Continuity of Care Document ---
:1965 Author Organization [facility] [place] Care Team Providers Name Role Phone Vastari Unavailable Un available Problems Problem Status Onset Classification Date Comments Sourc e Date Reported Radiculopathy, 02/26/20 02/28/2017 [facility] cervical region 17 Hosp [facility] Hyperglycemia, 02/26/20 03/01/2017 [facility] unspecified 17 Hospital Fever, 02/26/20 03/01/2017 [facility] [facility] unspecified 17 Hospital Displaced 12/28/19 12/30/2016 [facility] [facility] unspecified 17 Hospital fracture of right lesser toe(s), initial encounter for closed fracture HURT TOES Active 12/28/[address] ABDOMINAL PAIN Active 02/07/20 [address] [place] EGD Active 02/05/20 [facility] 12 BLOOD SUGAR Active 11/28/19 [place] PROBLEM [...] [address] [place] BLEEDING ABD PAIN Active 01/06/20 [facility] 10 EAR PAIN Active 10/10/19 [facility] [place] UPPER ABDOMINAL Active 09/21/19 [facility] PAIN 10 [place] ABD PAIN, HIGH Active 08/16/19 [facility] SUGAR 10 [place] Abdominal pain Active Problem 02/19/2012 [facility], [place] Cellulitis Active Problem 02/19/2012 [facility] [place] Chest pain Active Problem 02/19/2012 [facility] [place] Hyperglycemia Active Problem 02/19/2012 [facility] [place] UTI - Urinary Active Problem 02/19/2012 tract infection [facility] [place] Diabetes mellitus Active Problem 03/01/2017 [facility] (disorder[facility] Restless legs Active Problem 03/01/2017 [...] G.I. No Longer Cocktail = Active 2016 [place] antacid with Hospital simethicone 22.5 mL - lidocaine viscous 7.5 mL Zofran Notes: (Same Inactive as: Zofran) 2016 [place] MEDICATION Hospital WASTE Product Size: 4 mg Product Wasted: ___ mg Zofran Notes: (Same Inactive as: Zofran) 2016 [place] MEDICATION Hospital WASTE Product Size: 4 mg Product Wasted: ___ mg Morphine Notes: (Same Inactive as:MORPhine 2017 [place] Sulfate) Hospital Lidocaine Notes: Inactive Hydrochloride 10 Preservative 2016 [facility] MG/ML Injectable free. (Same Ho spital Solution as: Xylocaine MPF) Insulin regular 60 units) Inactive WASTE: F/P - 2017 [place] Black; E - Hospital Municipal Trash Bin Stable for 28 days at room temperature Expires in days from Date Sodium Chloride 2,000 mL, 1000 Inactive 0.9% (Bolus) IV ml/hr, Infuse 2017 [facility] Over: 2 hr, Hospital Route: IV, 2,000, Drug form: INJ, ONCE, Priority: STAT, Dosing Weight 49.545 kg, Start date: 02/25/17 20:22:00 HEARTH FEEDER, Stop date: 02/25/17 20:22:00 HEARTH FEEDER ibuprofen 800 mg 800 mg = 1 [...] (Same No Longer as: Valium) Active 2016 [facility] Ketorolac 4 days No Longer MEDICATION Active 2016 [place] WASTE Hospital Product Size: 30 mg Product Wasted: ___ mg Ciprofloxacin 500 500 mg = 1 Active MH MG Oral Tablet tab, PO, Q12H, 2017 [facility] [Cipro] for UTI, X 3 Hospital day, # 6 tab, 0 Refill(s), Pharmacy: [facility]/pharmacy #[id number] Humalog 100 4 unit, SUB-Q, Active units/mL TID-Before 2017 [place] Meals, hold Hospital insulin injection if your blood sugar is less than 140 mg/dL., # 10 mL, 0 Refill(s), Pharmacy: [facility]/pharmacy #[id number] pantoprazole 40 40 mg = 1 tab, Active 01/26/ H [facility] Enteric Coated PO, Daily, # 2017 [facility] Tablet [Protonix] 30 tab, 0 Hosp ital Refill(s), Pharmacy: [facility]/pharmacy #[id number] Calcium Carbonate 500 mg = 1 Active 500 MG Chewable tab, PO, TID, 2017 [facility] Tablet # 6 tab, 0 Hospital Refill(s), Pharmacy: [facility]/pharmacy #[id number] Insulin Glargine 15 unit, Active 100 UNT/ML SUB-Q, Daily, 2016 [place] Injectable # 10 mL, 0 Hospital Solution [Lantus] Refill(s), Pharmacy: [facility]/pharmacy #[id number] Calcium Gluconate Notes: WASTE: Inactive F/P - Sink; E 2016 [place] - [facility] Hospital Trash Bin Calcium Carbonate Notes: (Same Inactive As: [facility]) 2017 [place] Calcium Hospital Carbonate 500 mg = 200 mg elemental calcium Dose = mg calcium carbonate ( mg elemental calcium) Insulin Glargine Notes: Same as No Longer 100 UNT/ML Lantus Active 2016 [place] Injectable Solostar PEN Hospital Solution [Lantus] Do not hold insulin without contacting prescriber "single patient use only" WASTE: F/P - Black; E - Municipal Trash Bin Stable for 28 days at room temperature. Expires in days from Date Requip Notes: (Same No Longer as: Requip) Active 2017 [facility] Lyrica Notes: (Same No Longer as: Lyrica) Active 2017 [facility] Calcium Carbonate Notes: (Same Inactive As: Tums) 2017 [place] Calcium Hospital Carbonate 500 mg = 200 mg elemental calcium Dose = mg calcium carbonate ( mg elemental calcium) Protonix Notes: Tablet No Longer should not be Active 2017 [place] chewed or Hospital crushed. (Same as: Protonix) Magnesium Oxide Notes: (Same No Longer H as: Mag-Ox Active 2017 [place] 400) Magnesium Hospital oxide [id number] elemental magnesium Dose=____mg magnesium oxide (___mg elemental magnesium) Ketorolac 4 days No Longer MEDICATION Active 2017 [place] WASTE Hospital Product Size: 30 mg Product Wasted: ___ mg Docusate Notes: (Same No Longer as: Colace) Active 2016 [place] (Do Not Crush) [facility] Insulin Glargine 50 units, No Longer 100 UNT/ML SUB-Q, Daily, Active 2016 [place] Injectable 0 Refill(s) [facility] Solution [Lantus] ropinirole 2 MG 2 mg = 1 tab, Active Oral Tablet PO, Bedtime, 0 2016 [place] [facility] [Requip] Refill(s) [facility] pregabalin 75 MG 75 mg = 1 cap, Active Oral Capsule PO, Bedtime, 0 2016 [facility] [Lyrica] Refill(s) [facility] Insulin Lispro 60 units) Inactive WASTE: F/P - 2017 [place] Black; E - Hospital Municipal Trash Bin Stable for 28 days at room temperature. Expires in days from Date Ceftriaxone Notes: (Same No Longer As: Rocephin). Active 2017 [place] Use with 100 Hospital mL NS and infuse over 30 min MEDICATION WASTE Product Size: 1000 mg Product Wasted: ___ mg Hydralazine Notes: (Same No Longer as: Active 2016 [place] Apresoline) [facility] Push over 5 minutes Glucagon 1 mg, Route: No Longer IM, Drug form: Active 2016 [place] PDR/INJ, PRN, Hospital Dosing Weight 51.449, kg, PRN Blood Glucose Results, Start date: 01/25/17 1:35:00 CDT, Duration: 30 day, Stop date: 02/24/17 0:34:00 HEARTH FEEDER Insulin Lispro 60 units) No Longer WASTE: F/P - Active 2016 [place] Black; E - Hospital Municipal Trash Bin Stable for 28 days at room temperature. Expires in days from Date Dextrose 50% 25 gm, 50 mL, No Longer Syringe Route: IVP, Active 2016 [place] Drug Form: Hospital INJ, Dosing Weight 51.449, kg, PRN, PRN Blood Glucose Results, Start date: 01/25/17 1:35:00 CDT, Duration: 30 day, Stop date: 02/24/17 0:34:00 HEARTH FEEDER Acetaminophen Notes: Do not No Longer exceed 4 Active 2017 [place] gm/day. (Same Hospital as: Tylenol) Acetaminophen 325 Notes: (Same Inactive MG / Hydrocodone as: [place] 2017 [facility] [facility] Bitartrate 5 MG 325/5) Do not H ospital Oral Tablet exceed 4gm/day of acetaminophen. Ondansetron Notes: (Same No Longer as: Zofran) Active 2017 [place] MEDICATION Hospital WASTE Product Size: 4 mg Product Wasted: ___ mg sodium chloride 1,000 mL, No Longer 0.9% 1000 ml INJ Rate: 75 Active 2017 [place] 1,000 mL ml/hr, Infuse Hospital over: 13.3 hr, Route: IV, Dosing Weight 51.449 kg, Total Volume: 1,000, Start date: 01/25/17 1:32:00 CDT, Stop date: 02/24/17 1:31:00 HEARTH FEEDER Saline Flush 0.9% Notes: (Same No Longer as: BD Active 2016 [place] Posiflush) Hospital Ketorolac 15 mg, Route: Inactive IV, ONCE, 2016 [place] Dosing Weight Hospital 52.273, kg, Start date: 01/25/17 0:00:00 CDT, Stop date: 01/25/17 0:00:00 CDT Famotidine 20 mg, Route: Inactive IVP, ONCE, 2017 [place] Dosing Weight Hospital 52.273, kg, Priority: STAT, [...] 4 mg, Route: Inactive IVP, Drug 2017 [place] form: INJ, Hospital ONCE, Dosing Weight 52.273, kg, Priority: STAT, Start date: 01/24/17 22:07:00 CDT, Stop date: 01/24/17 22:07:00 CDT Morphine Notes: (Same Inactive as:MORPhine 2017 [place] Sulfate) Hospital Acetaminophen 300 1 - 2 tab, PO, No Longer 12/27 MG / Codeine Q4H, PRN Pain, Active 2016 [facility] Phosphate 30 MG X 2 day, # 30 Ho spital Oral Tablet tab, 0 [Tylenol with Refill(s) Codeine #3] Acetaminophen 325 Notes: (Same Inactive MG / Hydrocodone as: [place] 2016 [facility] [facility] Bitartrate 5 MG 325/5) Do not H ospital Oral Tablet exceed 4gm/day [Bridgman 5/325] of acetaminophen. Sodium Chloride 500 mL, Rate: IV No Longer [facility] Sugar 0.9% (Bolus) IV 500 ml/hr, Active 2011 [facility] 500 mL Infuse over: 1 hr, [...] ketorolac 30 mg, Route: IVP No Longer [facility] Sug ar IVP, Drug Active 2011 [place] form: INJ, ONCE, Dosing Weight 50, kg, Priority: STAT, Start date: 11/28/11 21:51:00, Stop date: 11/28/11 21:51:00 ondansetron 4 mg, Route: IVP No Longer [facility] IVP, ONCE, Active 2011 [facility] Dosing Weight 50, kg, Priority: STAT, Start date: 11/28/11 21:51:00, Stop date: 11/28/11 21:51:00 Sodium Chloride 1,000 mL, IVPB No Longer [facility] S ugar 0.9% (Bolus) IV Rate: 1,000 Active 2011 [facility] 1,000 mL ml/hr, Infuse over: 1 hr, Route: IVPB, kg, Total Volume: 1,000, Bolus Dose, Priority: STAT, Start date: 11/28/11 21:51:00, Duration: 1 doses or times, Stop date: 11/28/11 22:50:00 Saline Flush 0.9% 5 ml, Route: IVP No Longer [facility] Sugar IVP, Drug Active 2011 [place] Form: INJ, kg, PRN, PRN Line Flush, Start date: 11/28/11 21:51:00, Duration: 30 day, Stop date: 12/28/11 21:50:00 [place] 5/325 oral 1-2 tab, PO, PO Active [facility] Sugar tablet Q4-6H, PRN, 2011 tab, Pain, Substitution Allowed, Soft Stop Zofran ODT 4 mg 4 mg, 1 tab, PO Active [facility] Sugar oral tablet, PO, TID, PRN, 2011 disintegrating 10 tab, Nausea and Vomiting, Substitution Allowed morphine Sulfate 4 mg, 2 mL, IVP No Longer [facility] Route: IVP, Active 2011 [facility] Drug form: INJ, ONCE, Priority: STAT, Start date: 10/25/11 0:22:00, Stop date: 10/25/11 0:22:00 diphenhydrAMINE 25 mg, Route: IVP No Longer [place] [facility] IVP, ONCE, Active 2011 Priority: STAT, Start date: 10/25/11 0:06:00, Stop date: 10/25/11 0:06:00 morphine Sulfate 4 mg, 2 mL, IVP No Longer [place] 10/24/ M [facility] Route: IVP, Active 2011 [facility] Drug form: INJ, ONCE, Priority: STAT, [...] Longer [place] [facility] IVP, Drug Active 2011 [facility] Form: INJ, PRN, PRN Line Flush, [...] regular 5 unit, 0.05 IVP No Longer [facility] Sugar mL, Route: Active 2011 [facility] IVP, Drug form: SOLN, ONCE, Priority: STAT, Start date: 05/23/11 1:10:00, Stop date: 05/23/11 1:10:00 Visipaque 32,000 mg, 100 IV Active [facility] Suga r mL, Route: IV, 2011 [facility] Drug form: INJ, ONCE, Start date: 05/22/11 23:47:00, Stop date: 05/22/11 23:47:00 Insulin regular 5 unit, 0.05 SUB-Q No Longer [facility] Sugar mL, Route: Active 2011 [facility] SUB-Q, Drug form: SOLN, ONCE, Priority: STAT, Start date: 05/22/11 23:36:00, Stop date: 05/22/11 23:36:00 morphine Sulfate 2 mg, 0.4 mL, IVP No Longer [facility] Route: IVP, Active 2011 [facility] Drug form: INJ, ONCE, Priority: STAT, Start date: 05/22/11 23:04:00, Stop date: 05/22/11 23:04:00 ondansetron 4 mg, 2 mL, IVP No Longer [facility] Sug ar Route: IVP, Active 2011 [facility] Drug form: INJ, ONCE, Priority: STAT, Start date: 05/22/11 23:04:00, Stop date: 05/22/11 23:04:00 Sodium Chloride 500 mL, Rate: IV No Longer [facility] Sugar 0.9% (Bolus) IV 1,000 ml/hr, Active 2011 [facility] [facility] 500 mL Infuse over: 0.5 hr, Route: IV, Total Volume: 500, Bolus dose, Priority: STAT, Start date: 05/22/11 23:04:00, Duration: 1 doses or times, Stop date: 05/22/11 23:33:00 Saline Flush 0.9% 5 ml, Route: IVP No Longer [facility] Sugar IVP, Drug Active 2011 [facility] Form: INJ, PRN, PRN Line Flush, Start date: 05/22/11 23:04:00, Duration: 24 hr, Stop date: 05/23/11 23:03:00 Pyridium 200 mg 200 mg, 1 tab, PO Active [facility] H Sugar oral tablet PO, TID, 9 2011 [facility] tab, Substitution Allowed Cipro 500 mg oral 500 mg, 1 tab, PO Active [facility] Sugar tablet PO, Q12H, 28 2011 [facility] tab, Substitution Allowed, TAB Pyridium 200 mg, 2 tab, PO No Longer [facility] Sug ar Route: PO, Active 2011 [facility] Drug form: TAB, ONCE, Priority: STAT, Start date: 05/07/11 20:03:00, Stop date: 05/07/11 20:03:00 Cipro 500 mg, 2 tab, PO No Longer [facility] Suga r Route: PO, Active 2011 [facility] Drug form: TAB, ONCE, Priority: STAT, Start date: 05/07/11 20:03:00, Stop date: 05/07/11 20:03:00 Cipro 500 mg oral 500 mg, 1 tab, PO Active [facility] Sugar tablet PO, BID, 20 2011 [facility] tab, Substitution Allowed Zofran ODT 4 mg 4 mg, 1 tab, PO Active [facility] oral tablet, PO, TID, PRN, 2011 disintegrating 10 tab, Nausea and Vomiting, Substitution Allowed [place] 10/325 oral 1 tab, PO, PO Active [facility] Sugar tablet Q4-6H, PRN, 24 2011 [facility] tab, as needed for pain, Substitution Allowed, Maintenance hydromorphone 1 mg, 0.5 mL, IVP No Longer [facility] Route: IVP, Active 2011 [facility] Drug form: INJ, ONCE, Priority: STAT, Start date: 04/19/11 23:38:00, Stop date: 04/19/11 23:38:00 Insulin regular 10 unit, 0.1 IVP No Longer [facility] mL, Route: Active 2011 [facility] IVP, Drug form: SOLN, ONCE, Priority: [...] magnesium citrate 150 ml, PO, PO Active [place] 03/26[facility] Sugar 8.85% oral liquid ONCE, 300 ml, 2010 [place] Substitution Allowed, Maintenance, LIQ MiraLax oral 17 gm, PO, PO Active [place] 03/26[facility] Sugar powder for Daily, 255 gm, 2010 [place] reconstitution Substitution Allowed, PDR/REC Phenergan 25 mg 25 mg, 1 tab, PO Active [place] Sugar oral tablet PO, Q6H, PRN, 2010 [place] 15 tab, Nausea, Substitution Allowed Vicodin 5/500 1 tab, PO, PO Active [place] Suga r oral tablet Q4-6H, PRN, 2010 tab, for Pain, Substitution Allowed, Maintenance Sodium Chloride 1,000 mL, IV No Longer [place] S ugar 0.9% (Bolus) IV Rate: 1,000 Active 2010 1,000 mL ml/hr, Infuse over: 1 hr, Route: IV, Total Volume: 1,000, [place]us Dose, Priority: STAT, Start date: 03/25/11 21:24:00, Duration: 1 doses or times, Stop date: 03/25/11 22:23:00 Insulin regular 10 unit, 0.1 IVP No Longer [place] 03/26/ H Sugar mL, Route: Active 2010 IVP, Drug form: SOLN, ONCE, Priority: STAT, Start date: 03/25/11 21:16:00, Stop date: 03/25/11 21:16:00 Omnipaque 300 30,000 mg, 100 IV Active [place] Sugar mL, Route: IV, 2010 Drug form: SOLN, ONCE, Start date: 03/25/11 21:15:00, Stop date: 03/25/11 21:15:00 Saline Flush 0.9% 5 ml, Route: IVP No Longer [place] Sugar IVP, Drug Active 2010 Form: INJ, PRN, PRN Line Flush, Start date: 03/25/11 20:19:00, Duration: 30 day, Stop date: 04/24/11 20:18:00 ondansetron 4 mg, 2 mL, IVP No Longer [place] Sug ar Route: IVP, Active 2010 Drug form: INJ, ONCE, Priority: STAT, Start date: 03/25/11 20:19:00, Stop date: 03/25/11 20:19:00 morphine Sulfate 4 mg, 0.8 mL, IVP No Longer [place] [facility] Route: IVP, Active 2010 Drug form: [...] [place] Route: PO, Active 2010 [facility] Drug form: TAB, [id number], Start date: 02/11/11 11:00:00, Duration: 30 day, Stop date: 03/12/11 23:00:00 magnesium oxide 400 mg, 1 tab, PO No Longer [place] [facility] Route: PO, Active 2010 [facility] Drug form: TAB, Daily, Start date: 02/11/11 9:00:00, Duration: 30 day, Stop date: 03/12/11 9:00:00 Lantus 70 unit, SUB-Q No Longer [place] [facility] Route: SUB-Q, Active 2010 [facility] Drug form: SOLN, Daily, Start date: 02/11/11 9:00:00, Duration: 30 day, Stop date: 03/12/11 9:00:00 Levemir FlexPen 70 unit, 0.7 SUB-Q No Longer [facility] mL, Route: Active 2010 SUB-Q, Drug form: INJ, Daily, Start date: 02/11/11 9:00:00, Duration: 30 day, Stop date: 03/12/11 9:00:00 Saline Flush 0.9% 5 ml, Route: IVP No Longer [place] [facility] IVP, Drug Active 2010 [facility] Form: INJ, Q12H, Start date: 02/11/11 [...] Route: PO, Active 2010 Drug form: TAB, [id number], Start date: 02/11/11 3:00:00, Duration: 30 day, [...] Sliding Scale - mL, Route: Active 2010 [facility] Low SUB-Q, Drug form: SOLN, Sliding Scale, PRN Blood Glucose Results, Start date: 02/11/11 2:05:00, Duration: 30 day, Stop date: 03/13/11 1:04:00 glucagon 1 mg, Route: IM No Longer [place] [facility] IM, Drug form: Active 2010 [facility] PDR/INJ, PRN, PRN Blood Glucose Results, Start date: 02/11/11 2:05:00, Duration: 30 day, Stop date: 03/13/11 1:04:00 Dextrose 50% 25 gm, 50 ml, IVP No Longer [place] [facility] Syringe Route: IVP, Active 2010 [facility] Drug Form: INJ, PRN, PRN Blood Glucose Results, Start date: 02/11/11 2:05:00, Duration: 30 day, Stop date: 03/13/11 1:04:00 Saline Flush 0.9% 5 ml, Route: IVP No Longer [place] [facility] IVP, Drug Active 2010 [facility] Form: INJ, PRN, PRN Line Flush, Start date: 02/11/11 2:05:00, Duration: 30 day, Stop date: 03/13/11 1:04:00 nitroglycerin SL 0.4 mg, 1 tab, SL No Longer [place] [facility] Tab Route: SL, Active 2010 [facility] Drug form: TAB, Q5Min, PRN Chest Pain, Start date: 02/11/11 2:05:00, Duration: 3 doses or times, Stop date: Limited # of times morphine Sulfate 2 mg, 0.4 mL, IVP No Longer [place] [facility] Route: IVP, Active 2010 [facility] Drug form: INJ, Q15Min, PRN Chest Pain, Start date: 02/11/11 2:05:00, Duration: 2 doses or times, Stop date: Limited # of times acetaminophen 650 mg, 2 tab, PO No Longer [facility] Route: PO, Active 2010 [facility] Drug form: TAB, Q4H, PRN Headache, Start date: 02/11/11 2:05:00, Duration: 30 day, Stop date: 03/13/11 2:04:00 diphenhydrAMINE 25 mg, 1 tab, PO No Longer [place] [facility] Route: PO, Active 2010 [facility] Drug form: TAB, Bedtime, PRN Insomnia, [...] [place] [facility] Route: PO, Active 2010 [facility] Drug form: TAB, Q8H, PRN Nausea & Vomiting, Start date: 02/11/11 2:05:00, Duration: 30 day, Stop date: 03/13/11 2:04:00 temazepam 15 mg, 1 cap, PO No Longer [place] [facility] Route: PO, Active 2010 [facility] Drug form: CAP, Bedtime, PRN Insomnia, Start date: 02/11/11 2:05:00, Duration: 30 day, Stop date: 03/13/11 2:04:00 aspirin 325 mg 325 mg, 1 tab, PO No Longer [place] [facility] tablet Route: PO, Active 2010 [facility] Drug form: TAB, ONCE, Start date: 02/11/11 2:05:00, Stop date: 02/11/11 2:05:00 morphine Sulfate 2 mg, 0.4 mL, IVP No Longer [place] 02/11 [place] Route: IVP, Active 2010 [facility] Drug form: INJ, ONCE, Priority: STAT, Start date: 02/11/11 0:37:00, Stop date: 02/11/11 0:37:00 Visipaque 48,000 mg, 150 IV No Longer [place] Sugar mL, Route: IV, Active 2010 [facility] Drug form: INJ, ONCE, Start date: [...] H Sugar ointment Route: TOP, Active 2010 [facility] Drug Form: OINT, ONCE, STAT, Start date: 02/10/11 21:47:00, Stop date: 02/10/11 21:47:00 nitroglycerin 0.4 mg, 1 tab, SL No Longer [place] [facility] Route: SL, Active 2010 [facility] Drug form: TAB, Q5Min, PRN Chest Pain, (Hold if SBP < = 90 mmHg or if < = 100mmHg with symptomatic dizziness), Start date: 02/10/11 21:47:00, Duration: 3 doses or times, Stop date: Limited # of times morphine Sulfate 2 mg, Route: IVP No Longer [place] [facility] IVP, ONCE, Active 2010 [facility] Priority: STAT, Start date: 02/10/11 21:47:00, Stop date: 02/10/11 21:47:00 Saline Flush 0.9% 5 ml, Route: IVP No Longer [place] 02/11 [facility] IVP, PRN, PRN Active 2010 [facility] Line Flush, Start date: 02/10/11 21:47:00, Duration: 30 day, Stop date: 03/12/11 20:46:00 aspirin 325 mg 325 mg, 1 tab, PO No Longer [facility] tablet, enteric Route: PO, Active 2010 [facility] coated Drug form: ECTAB, Daily, Start date: 01/16/11 9:00:00, Duration: 30 day, Stop date: 02/14/11 9:00:00 Requip 1 mg, 1 tab, PO No Longer [place] [facility] Route: PO, Active 2010 [facility] Drug form: TAB, Bedtime, Start date: 01/15/11 21:00:00, Duration: 30 day, Stop date: 02/13/11 21:00:00 Nitrostat 0.4 mg 1 tab, SL, SL Active [facility] sublingual tablet Q5Min, PRN, [address] [place] 100 tab, Chest Pain, Substitution Allowed metoprolol 25 mg 12.5 mg, PO, PO Active [facility] Sugar oral tablet Q12H, 30 tab, 2010 Substitution Allowed, TAB aspirin 325 mg 9,750 mg, 30 PO Active [facility] S ugar tablet, enteric tab, PO, 2010 coated Daily, 30 tab, Substitution Allowed, ECTAB metoprolol 12.5 mg, 0.5 PO No Longer [place] Sug ar tab, Route: Active 2010 PO, Drug form: TAB, Q12H, Priority: NOW, Start date: 01/15/11 10:36:00, Duration: 30 day, Stop date: 02/14/11 9:00:00 Fioricet oral 1 tab, PO, PO Active [facility] 01/15[facility] Suga r tablet Q4H, PRN, 2010 tab, Headache, Substitution Allowed, Maintenance, TAB Fioricet 1 tab, Route: PO No Longer [place] 01/15[facility] Suga r PO, Drug Form: Active 2010 TAB, Q4H, PRN Headache, Start date: 01/15/11 9:15:00, Duration: 30 day, Stop date: 02/14/11 9:14:00 aspirin 81 mg 81 mg, 1 tab, PO No Longer [facility] Sugar tablet, enteric Route: PO, Active 2010 coated Drug form: ECTAB, Daily, Start date: 01/15/11 9:00:00, Duration: 30 day, Stop date: 02/13/11 9:00:00 Requip 1 mg oral 1 mg, 1 tab, PO Active Sugar tablet PO, Bedtime, 2010 Substitution Allowed ibuprofen 400 mg 400 mg, 1 tab, PO No Longer [place] 01/15[facility] Sugar oral tablet Route: PO, Active 2010 Drug form: TAB, Q8H, Start date: 01/15/11 0:00:00, Duration: 30 day, Stop date: 02/13/11 16:00:00 Saline Flush 0.9% 5 ml, Route: IVP No Longer [place] 01/15[facility] Sugar IVP, Drug Active 2010 Form: INJ, Q12H, Start date: 01/14/11 21:00:00, Duration: 30 day, Stop date: 02/13/11 9:00:00 Levemir FlexPen 70 unit, 0.7 SUB-Q No Longer [place] 01/15/ H [facility] mL, Route: Active 2010 [facility] SUB-Q, Drug form: INJ, Bedtime, Start date: 01/14/11 21:00:00, Duration: 30 day, Stop date: 02/12/11 21:00:00 Lantus 70 unit, SUB-Q No Longer [place] [facility] Route: SUB-Q, Active 2010 [facility] Bedtime, Start date: 01/14/11 21:00:00, Duration: 30 day, Stop date: 02/12/11 21:00:00 glucagon 1 mg, Route: IM No Longer [place] IM, Drug form: Active 2010 [facility] PDR/INJ, PRN, PRN Blood Glucose Results, Start date: 01/14/11 19:22:00, Duration: 30 day, Stop date: 02/13/11 19:21:00 Insulin (Novolog) 6 unit, 0.06 SUB-Q No Longer [place] [facility] Sliding Scale - mL, Route: Active 2010 [facility] Very High SUB-Q, Drug form: SOLN, [...] Longer [place] [facility] IVP, Drug Active 2010 [facility] Form: INJ, PRN, PRN Line Flush, [...] 400 mg 1 tab, PO, PO Active [facility] S ugar oral tablet Q4H, PRN, 2010 tab, Pain, Substitution Allowed acetaminophen-hyd 1 tab, PO, PO Active [facility] Sugar rocodone 500 mg-5 Q4-6H, PRN, 2010 [...] type Reported Ritalin Assertion Drug Active allergy [facility] Immunizations No Data Provided for This Section Results Order Name Results Value Reference Date Interpretation Comments Nely rce Range BACTERIAL Strep Negative Negative 02/26 [place] - SEROLOGY pneumoniae (02/25/17 9:02 PM) /2016 Hospital Ag BACTERIAL Source Strep Cerebral 02/26 [facility] SER[facility] Spinal /2016 Hospital Fluid BODY Tube Num CSF 1 02/26 [place] FLUIDS /2016 Hospital BODY Clarity CSF Clear Clear 02/26 [facility] [place] FLUIDS (02/25/17 9:02 PM) /2016 [facility] BODY Color CSF Colorless Colorless 02/26 [place] FLUIDS (02/25/17 9:02 PM) /2016 [facility] BODY Supernat CSF Colorless Colorless 02/26 [facility] FLUIDS (02/25/17 9:02 PM) /2016 [facility] BODY WBC CSF 2 0 - 53 02/26 [facility] [place] FLUIDS /2016 Hospital BODY RBC CSF 1 0 - 03 02/26 [facility] [place] FLUIDS /2016 Hospital BODY RBC CSF 1 0 - 03 02/26 [place] FLUIDS /2017 Hospital BODY WBC CSF 2 0 - 53 02/26 [place] FLUIDS /2016 Hospital BODY Supernat CSF Colorless Colorless 02/26 [facility] FLUIDS (02/25/17 9:02 PM) /2016 [facility] BODY Clarity CSF Clear Clear 02/26 [place] FLUIDS (02/25/17 9:02 PM) /2016 [facility] BODY Tube Num CSF 4 02/26 [place] FLUIDS /2016 Hospital BODY Color CSF Colorless Colorless 02/26 [place] FLUIDS (02/25/17 9:02 PM) /2016 [facility] BODY Glucose CSF 219 45 - 80 02/26 Result [place] FLUIDS Comment: Hospital Critical Result(s) called to Charlotte Hodge at _02/25/2017 21:45 bybz_. Read back OK.

NOTE: RESULTS autoverfied BODY Protein CSF 55 15 - 45 02/26 [place] FLUIDS /2016 Hospital FUNGAL - Crypto Ag Negative Negative 02/26 [place] SEROLOGY CSF (02/25/17 9:02 PM) /2016 [facility]osp [facility] IMMUNOLOGY VDRL Scr CSF Non Reactive Non 02/26 [place] (02/25/17 9:02 PM) Reactive /2016 [facility]osp [facility] [...] curve analysis. MOLECULAR Source HSV Cerebral 02/26 [place] DIAGNOSTIC Spinal /2016 Hospital Fluid VIRAL - [facility] Negative [facility] (02/25/17 9:02 PM[facility] CHEM PANEL A/G Ratio 0.9 0.7 - 1.6 02/26 [facility] CHEM PANEL B/C Ratio 23 6 - 25 02/26 [facility] CHEM PANEL Globulin 4.3 2.7 - 4.2 02/26 [facility] CHEM PANEL AGAP 11.3 10.0 - 02/26 [place] 20.0 [facility] CHEM PANEL eGFR 101 02/26 [facility] [place] Comment: The Hospital eGFR is calculated using [...] PANEL BUN 16 7 - 22 02/26 [facility] CHEM PANEL ALANINE 17 0 - 65 02/26 [facility] AMINOTRANSFE Hospital RASE CHEM PANEL Total 8.2 6.4 - 8.4 02/26 [facility] CHEM PANEL Potassium 4.3 3.5 - 5.1 02/26 [facility] /2016 [facility] CHEM PANEL Sodium Lvl 130 135 - 145 02/26 [facility] /2016 [facility] CHEM PANEL Creatinine 0.70 0.50 - 02/26 [place] Lvl 1.40 /2016 Hospital CHEM PANEL Glucose Lvl 340 70 - 99 02/26 [facility] /2016 [facility] CHEM PANEL Calcium Lvl 8.9 8.5 - 10.5 02/26 [facility] /2017 [facility] CHEM PANEL Chloride Lvl 97 95 - 109 02/26 [facility] /2016 [facility] CHEM PANEL CO2 26 24 - 32 02/26 [place] /2017 Hospital CHEM PANEL Alk Phos 158 39 - 136 02/26 [place] /2017 Hospital CHEM PANEL ASPARTATE 16 0 - 37 02/26 [place] TRANSAMINASE Hospital CHEM PANEL Albumin Lvl 3.9 3.5 - 5.0 02/26 [facility] /2016 [facility] CHEM PANEL Lactic Acid 1.8 0.5 - 2.2 02/26 [facility] Lvl /2016 Hospital HEMATOLOGY Platelet 305 133 - 450 02/26 [place] /2017 Hospital HEMATOLOGY MCV 82.2 80.0 - 02/26 [place] 98.0 /2016 Hospital HEMATOLOGY Hct 37.1 36.0 - 02/26 [place] 48.0 /2016 Hospital HEMATOLOGY MPV 7.4 7.4 - 10.4 02/26 [place] /2017 Hospital HEMATOLOGY RDW 14.1 11.5 - 02/26 [place] 14.5 /2016 Hospital HEMATOLOGY MCH 27.6 27.0 - 02/26 [place] 31.0 /2016 Hospital HEMATOLOGY MCHC 33.6 32.0 - 02/26 [place] 36.0 /2017 Hospital HEMATOLOGY RBC X 10x6 4.52 4.20 - 02/26 [place] 5.40 /2016 Hospital HEMATOLOGY Hgb 12.5 12.0 - 02/26 [place] 16.0 /2016 Hospital HEMATOLOGY WBC X 10x3 [...] Hospital HEMATOLOGY Segs 53.4 45.0 - 02/26 [place] 75.0 /2016 Hospital HEMATOLOGY Lymphocytes 39.1 20.0 [...] AND UA 0.2 0.1 - 1.0 02/26 [place] STOOL Urobilinogen /2016 Hospital URINE AND UA Nitrite Negative Negative 02/26 [facility] (02/25/17 7:42 PM) [facility] URINE AND UA Bili Negative Negative 02/26 [place] STOOL *NA* /2016 Hospital (02/25/17 7:42 PM) URINE AND UA Ketones Negative Negative 02/26 [facility] *NA* /2016 [facility] (02/25/17 7:42 PM) URINE AND UA Bacteria Many /HPF None Seen 02/26 [facility] /HPF /2016 Hospital URINE AND UA WBC 0-2 /HPF None Seen 02/26 [place] STOOL /HPF /2016 Hospital URINE AND UA RBC 0-2 /HPF 0 - 2 02/26 [place] STOOL /2016 Hospital URINE AND UA Leuk Est Negative Negative 02/26 [facility] (02/25/17 7:42 PM) /2016 [facility] URINE AND UA Sq Epi Few /LPF Few /LPF 02/26 [place] STOOL Hospital URINE AND UA Blood Negative Negative 02/26 [place] STOOL (02/25/17 7:42 PM) [facility] URINE AND UA Glucose >=1000 Negative 02/26 [place] STOOL mg/dL mg/dL /2016 Hospital URINE AND UA Protein Negative Negative 02/26 [facility] (02/25/17 7:42 PM) [facility]pi [facility] URINE AND UA pH 6.0 5.0 - 8.0 02/26 [place] STOOL /2016 Hospital URINE AND UA Spec Grav 1.010 <=1.030 02/26 [facility] URINE AND UA Color Yellow Yellow 02/26 [place] STOOL *NA* /2016 Hospital (02/25/17 7:42 PM) URINE AND UA Turbidity Slight Cloudy Clear 02/26 [place] STOOL (02/25/17 7:42 PM) Hospi [facility] VIRAL - Influ B Negative Negative 02/26 [place] SEROLOGY (02/25/17 7:42 PM) [facility]osp [facility] VIRAL - Influ A Negative Negative 02/26 [place] SEROLOGY (02/25/17 7:42 PM) [facility]osp [facility] CHEM PANEL eGFR 121 01/26 [place] Comment: The Hospital eGFR is calculated using [...] Alk Phos 165 39 - 136 01/26 [facility] CHEM PANEL B/C Ratio 12 6 - 25 01/26 [facility] CHEM PANEL Globulin 3.3 2.7 - 4.2 01/26 [facility] CHEM PANEL Albumin Lvl 2.4 3.5 - 5.0 01/26 [facility] CHEM PANEL Total 5.7 6.4 - 8.4 01/26 [place] [facility] CHEM PANEL AGAP 9.7 10.0 - 01/26 [place] 20.0 [facility] CHEM PANEL Glucose Lvl 261 70 - 99 01/26 [facility] CHEM PANEL Calcium Lvl 7.4 8.5 - 10.5 01/26 [facility] CHEM PANEL A/G Ratio 0.7 0.7 - 1.6 01/26 [facility] CHEM PANEL Creatinine 0.40 0.50 - 01/26 [facility] [place] Lvl 1.40 [facility] CHEM PANEL BUN 5 7 - 22 01/26 [place] 2017 Hospital CHEM PANEL ASPARTATE 37 0 - 37 01/26 [place] TRANSAMINASE Hospital CHEM PANEL ALANINE 44 0 - 65 01/26 [place] AMINOTRANSFE [facility] RASE CHEM PANEL Potassium 3.7 3.5 - 5.1 01/26 [facility] CHEM PANEL Sodium Lvl 137 135 - 145 01/26 [facility] CHEM PANEL CO2 25 24 - 32 10 [facility] CHEM PANEL Chloride Lvl 106 95 - 109 01/26 [facility] CARDIAC Troponin-I <0.02 0.00 - 01/25 [place] ENZYMES 0.40 [facility] PARATHYROI Ca Norm WB 0.99 1.05 - 01/25 [place] D PROFILE 1. [facility] PARATHYROI Ca Ion WB 1.01 1.05 - 01/25 [place] D PROFILE 1. Hospital CHEM PANEL Albumin Lvl 2.6 3.5 - 5.0 01/25 [facility] CHEM PANEL eGFR 112 01/25 Result [place] Comment: The Hospital eGFR is calculated using [...] CHEM PANEL Creatinine 0.50 0.50 - 01/25 [place] Lvl 1.40 [facility] CHEM PANEL Sodium Lvl 135 135 - 145 01/25 [facility] CHEM PANEL Potassium 3.6 3.5 - 5.1 01/25 [facility] CHEM PANEL CO2 25 24 - 32 01/25 [facility] CHEM PANEL Chloride Lvl 105 95 - 109 01/25 [facility] CHEM PANEL AGAP 8.6 10.0 - 01/25 [place] 20.0 [facility] CHEM PANEL Calcium Lvl 6.9 8.5 - 10.5 01/25 [facility] Comment: Hospital Critical Result(s) called to uyen martinez_ at _01/25/2017 15:47 by_bz. Read back OK. CHEM PANEL Glucose Lvl 263 70 - 99 01/25 [facility] CHEM PANEL BUN 8 7 - 22 01/25 [facility] CHEM PANEL Phosphorus 2.7 2.5 - 4.5 01/25 [facility] CHEM PANEL eGFR 106 01/25 Result [place] Comment: The Hospital eGFR is calculated using [...] CHEM PANEL Creatinine 0.60 0.50 - 10 [place] Lvl 1.40 [facility] CHEM PANEL BUN 9 7 - 22 01/25 [facility] CHEM PANEL Glucose Lvl 405 70 - 99 01/25 [facility] Comment: Hospital Critical Result(s) called to Dung Mullins at 01/25/2017 04:39 by CV. Read back OK. CHEM PANEL AGAP 12.5 10.0 - 01/25 [place] 20.0 [facility] CHEM PANEL Potassium 3.5 3.5 - 5.1 01/25 [facility] CHEM PANEL Chloride Lvl 102 95 - 109 01/25 [facility] CHEM PANEL CO2 23 24 - 32 01/25 [facility] CHEM PANEL Calcium Lvl 7.1 8.5 - 10.5 01/25 [facility] CHEM PANEL Sodium Lvl 134 135 - 145 01/25 [facility] CHEM PANEL Magnesium 1.7 1.8 - 2.4 01/25 [facility] HEMATOLOGY MPV 7.4 7.4 - 10.4 01/25 [facility] HEMATOLOGY RDW 13.6 11.5 - 01/25 [place] 14.5 [facility] HEMATOLOGY Platelet 244 133 - 450 01/25 [place] 2017 Hospital HEMATOLOGY MCHC 33.4 32.0 - 01/25 [place] 36.0 [facility] HEMATOLOGY MCV 82.5 80.0 - 01/25 [place] 98.0 [facility] HEMATOLOGY MCH 27.6 27.0 - 01/25 [place] 31.0 [facility] HEMATOLOGY Hgb 10.7 12.0 - 01/25 [place] 16.0 [facility] HEMATOLOGY Hct 32.0 36.0 - 01/25 [place] 48.0 [facility] HEMATOLOGY WBC X 10x3 5.5 3.7 - 10.4 01/25 [facility] HEMATOLOGY RBC X 10x6 3.88 4.20 - 01/25 [place] 5.40 [facility] HEMATOLOGY Monocytes 7.2 2.0 - [...] Hospital HEMATOLOGY Segs 55.0 45.0 - 01/25 [place] 75.0 Hospital SPECIAL Hgb A1C >16.0 % <=5.6 % 01/25 [place] CHEMISTRY Hospital URINE AND UA Sq Epi Occasional Few /LPF 01/25 [facility] STOOL /LPF /2016 Hospital URINE AND UA WBC 11-20 /HPF None Seen 01/25 [facility] /HPF /2016 Hospital URINE AND UA Bacteria Moderate None Seen 01/25 [facility] ST[facility] /HPF /HPF /2016 Hospital URINE AND UA RBC 0-2 /HPF 0 - 2 01/25 [place] STOOL /2016 Hospital URINE AND UA Leuk Est Negative Negative 01/25 [facility] (01/24/17 11:54 PM) /2016 [facility] URINE AND UA Nitrite Positive Negative 01/25 [facility] *ABN* /2016 Hospital (01/24/17 11:54 PM) URINE AND UA Blood Negative Negative 01/25 [place] STOOL (01/24/17 11:54 PM) [facility]osp [facility] URINE AND UA Bili Negative Negative 01/25 [place] STOOL *NA* /2016 Hospital (01/24/17 11:54 PM) URINE AND UA Glucose >=1000 Negative 01/25 [place] STOOL mg/dL mg/dL /2016 Hospital URINE AND UA Protein Negative Negative 01/25 [facility] (01/24/17 11:54 PM) [facility]osp [facility] URINE AND UA 0.2 0.1 - 1.0 01/25 [place] STOOL Urobilinogen /2016 Hospital URINE AND UA Ketones Negative Negative 01/25 [facility] *NA* /2016 Hospital (01/24/17 11:54 PM) URINE AND UA pH 5.5 5.0 - 8.0 01/25 [place] STOOL /2016 Hospital URINE AND UA Spec Grav <=1.005 <=1.030 01/25 [facility] *NA* /2016 Hospital (01/24/17 11:54 PM) URINE AND UA Color Yellow Yellow 01/25 [place] STOOL *NA* /2016 Hospital (01/24/17 11:54 PM) URINE AND UA Turbidity Clear Clear 01/25 [facility] (01/24/17 11:54 PM) [facility]osp [facility] CARDIAC Total CK 62 12 - 191 01/25 [place] ENZYMES Hospital CARDIAC CK MB <1.0 0.5 - 3.6 01/25 [place] ENZYMES [facility] CARDIAC Troponin-I <0.02 0.00 - 01/25 [place] ENZYMES 0.40 Hospital CARDIAC CK-MB INDEX <1.6 0.0 - 2.5 01/25 [place] ENZYMES [facility] CHEM PANEL ASPARTATE 14 0 - 37 01/25 [place] TRANSAMINASE Hospital CHEM PANEL Bili Total 0.5 0.2 - 1.3 01/25 [facility] CHEM PANEL ALANINE 37 0 - 65 01/25 [place] AMINOTRANSFE Hospital RASE CHEM PANEL Alk Phos 222 39 - 136 01/25 [facility] CHEM PANEL A/G Ratio 0.7 0.7 - 1.6 01/25 [facility] CHEM PANEL Globulin 4.7 2.7 - 4.2 01/25 [facility] CHEM PANEL Albumin Lvl 3.5 3.5 - 5.0 01/25 [facility] CHEM PANEL B/C Ratio 16 6 - 25 01/25 [place] 2017 [facility] CHEM PANEL Total 8.2 6.4 - 8.4 01/25 [facility] CHEM PANEL Lipase Lvl 168 73 - 393 01/25 [facility] 2017 [facility] HEMATOLOGY Hgb 13.7 12.0 - 01/25 [place] 16.0 [facility] HEMATOLOGY Hct 41.6 36.0 - 01/25 [place] 48.0 Hospital HEMATOLOGY MCV 83.6 80.0 - 01/25 [place] 98.0 /2016 Hospital HEMATOLOGY MCH 27.5 27.0 - 01/25 [place] 31.0 /2017 Hospital HEMATOLOGY MCHC 32.9 32.0 - 01/25 [place] 36.0 /2016 Hospital HEMATOLOGY RDW 13.6 11.5 - 10 [place] 14.5 Hospital HEMATOLOGY Platelet 314 133 - 450 01/25 [place] /2017 Hospital HEMATOLOGY MPV 8.1 7.4 - 10.4 01/25 [place] /2017 Hospital HEMATOLOGY WBC X 10x3 5.8 3.7 - 10.4 01/25 [facility] /2017 Hospital HEMATOLOGY RBC X 10x6 4.97 4.20 - 01/25 [place] 5.40 /2016 Hospital HEMATOLOGY Monocytes # 0.4 [...] Hospital HEMATOLOGY Segs 59.9 45.0 - 01/25 [place] 75.0 /2016 Hospital HEMATOLOGY Lymphocytes 31.7 20.0 - 01/25 [facility] 40.0 [facility] BEDSIDE Comment1 Notify 02/05 NA GLUCOSE KIRIT/ /2011 [facility] TESTING BEDSIDE Gluc POC 293 70 - 99 02/05 HI <sup>1</sup>I GLUCOSE [facility] nterpretive [facility] TESTING Data: Upper Reportable Limit: 200 mg/dL. [...] values reflect the clinical guidelines
of the [place] [employer]. CHEMISTRY Chloride Lvl 98 95 [...] values reflect the clinical guidelines
of the [place] [employer]. CHEMISTRY Chloride Lvl 100 95 [...] - 99 10/24 CRIT <sup>3</sup>I [place] GLUCOSE [facility] nterpretive [place] TESTING Data: Upper Reportable Limit: 200 mg/dL. BEDSIDE Gluc POC 273 65 - 110 05/23 HI <sup>1</sup>I [facility] [place] [facility] Data: Upper Reportable Limit: 200 mg/dL. BEDSIDE Comment1 Notify 05/23 NA [place] GLUCOSE RN/ [place] TESTING BEDSIDE Gluc POC >400 65 - 110 05/23 CRIT <sup>2</sup>I [place] [facility] [place] [facility] Data: Upper Reportable Limit: [...] on the clinical recommendatio ns of the [place] [employer]. CHEMISTRY BUN 12 7 - [...] on the clinical recommendatio ns of the [place] [employer]. CHEMISTRY Creatinine 0.8 0.5 - [...] on the clinical recommendatio ns of the [place] [employer]. CHEMISTRY Lipase Lvl 171 73 [...] [place] (03/25/2011 20:00:00) [place] URIN[place]YS[place] UA [place] Yeast Occasional /HPF None Seen 03/26 ABN [...] on the clinical recommendatio ns of the [place] [employer]. CHEMISTRY BUN 11.0 7 - [...] gar (02/10/2011 22:26:00) ?? [place] URINALYSIS UA [place] Yeast Occasional /HPF >None Seen 02/11 ABN [...] on the clinical recommendatio ns of the [place] [employer]. CHEMISTRY Sodium Lvl 131.0 135 [...] - 110 01/15 HI <sup>1</sup>I [place] GLUCOSE [facility] nterpretive [place] TESTING Data: Upper Reportable Limit: 200 mg/dL. BEDSIDE Comment1 Notify 01/15 NA [place] [facility]UCOSE RN/MD [place] TESTING BEDSIDE Comment1 Notify 01/15 NA [place] GLUCOSE RN/MD [place] TESTING BEDSIDE Gluc POC 88.0 65 - 110 01/15 Normal <sup>2</sup>I [place] GLUCOSE [facility] nterpretive [place] TESTING Data: Upper Reportable Limit: 200 mg/dL. BEDSIDE Comment1 Notify 01/15 NA [place] [facility]UCOSE RN/[place] TESTING BEDSIDE Gluc POC 70.0 65 - 110 01/15 Normal <sup>3</sup>I [place] GLUCOSE [facility] nterpretive [place] TESTING Data: Upper Reportable Limit: [...] on the clinical recommendatio ns of the [place] [employer]. CHEMISTRY LDL 96.0 0 - [...] on the clinical recommendatio ns of the [place] [employer]. CHEMISTRY BUN 9.0 7 - [...] 27.0 - 01/14 Normal [place] 31.0 /2010 [facility] HEMATOLOGY Hgb 13.2 12.0 - 10 Normal [place] 16.0 /2010 [facility] HEMATOLOGY RBC 4.6 4.20 - 01/14 Normal [place] 5.40 /2010 [facility] HEMATOLOGY Hct 38.9 36.0 - 01/14 Normal [place] 48.0 /2010 [facility] HEMATOLOGY MCV 84.6 81.0 - 01/14 Normal [place] 99.0 /2010 [facility] HEMATOLOGY WBC 5.6 3.7 - 10.4 10 Normal [place] /2010 [facility] HEMATOLOGY PT 13.6 12.0 - 01/14 Normal [place] 14.7 /2010 [facility] HEMATOLOGY PTT 30.2 22.9 - 10 Normal <sup>10</sup> Sean r 35.8 Interpretive [place] Data: Heparin Therapeutic Range: 57 - 92 Seconds HEMATOLOGY INR 1.04 0.85 - 01/14 Normal <sup>8</sup>I [facility] r 1.17 nterpretive [facility] Data: RECOMMENDED RANGES FOR PROTIME INR: 2.0-3.0 for most medical and surgical thromboemboli c states. 2.5-3.5 for artificial heart valves and recurrent embolism. INR SHOULD BE USED ONLY FOR PATIENTS ON STABLE ANTICOAGULANT THERAPY. HEMATOLOGY D-Dimer 1.5 01/14 NA <sup>9</sup>I [facility] r nterpretive [facility] Data: In DIC, quantitative D-Dimer is [...] and I concur with the interpretation. 02/25/2017 [facility] Clinical Indication: Headache, fever, neck pain Comparison: [...] No mass, hemorrhage, or subacute stroke. SL: [id number] Spine cervical wo CT cervical spine without contrast 02/25/2017 [facility] contrast CT Clinical Indication: - neck pain [...] ABDOMEN AND PELVIS WITH CONTRA ST 01/24/2017 [facility] contrast CT Clinical Indication: Acute l eft [...] series DX RIGHT FOOT 3 VIEW 12/26/2016 [facility] HISTORY: Toe injury. No [...] Comments Source Systolic (mm Hg) 111 02/26/2017 [facility] Diastolic (mm Hg) 64 02/26/2017 [facility] Respitory Rate 16 02/26/2017 [facility] Temperature Oral (F) 97.6 F 02/26/2017 [facility] Heart Rate 85 02/26/2017 [facility] Respitory Rate 16 02/26/2017 [facility] Systolic (mm Hg) 114 02/26/2017 [facility] Diastolic (mm Hg) 66 02/26/2017 [facility] Heart Rate 82 02/26/2017 [facility] Temperature Oral (F) 98.8 F 02/26/2017 [facility] Weight 49.545 02/26/2017 [facility] BMI Calculated 18.75 02/26/2017 [facility] Height 162.56 cm 02/26/2017 [facility] Systolic (mm Hg) 109 02/26/2017 [facility] Diastolic (mm Hg) 65 02/26/2017 [facility] 84 02/26/2017 [facility] Respitory Rate 14 02/26/2017 [facility] Respitory Rate 18 02/25/2017 [facility] Systolic (mm Hg) 114 02/25/2017 [facility] Diastolic (mm Hg) 63 02/25/2017 [facility] Temperature Oral (F) 98.2 F 02/25/2017 [facility] Heart Rate 78 02/25/2017 [facility] BMI Calculated 18.75 02/25/2017 [facility] Weight 49.545 02/25/2017 [facility] Height 162.56 cm 02/25/2017 [facility] Heart Rate 77 02/25/2017 [facility] Respitory Rate 18 02/25/2017 [facility] Temperature Oral (F) 97.8 F 02/25/2017 [facility] Systolic (mm Hg) 147 02/25/2017 [facility] Diastolic (mm Hg) 80 02/25/2017 [facility] Weight 49.659 02/25/2017 [facility] Height 167.64 cm 02/25/2017 [facility] Temperature Oral (F) 97.8 F 02/25/2017 [facility] BMI Calculated 17.67 02/25/2017 [facility] Systolic (mm Hg) 145 02/25/2017 [facility] Diastolic (mm Hg) 80 02/25/2017 [facility] Respitory Rate 18 02/25/2017 [facility] Heart Rate 77 02/25/2017 [facility] Temperature Oral (F) 98.5 F 01/26/2017 [facility] Heart Rate 87 01/26/2017 [facility] Respitory Rate 20 01/26/2017 [facility] Systolic (mm Hg) 116 01/26/2017 [facility] Diastolic (mm Hg) 69 01/26/2017 [facility] Heart Rate 79 01/26/2017 [facility] Respitory Rate 18 01/26/2017 [facility] Temperature Oral (F) 98.4 F 01/26/2017 [facility] Systolic (mm Hg) 129 01/26/2017 [facility] Diastolic (mm Hg) 80 01/26/2017 [facility] Temperature Oral (F) 98.1 F 01/26/2017 [facility] Heart Rate 78 01/26/2017 [facility] Systolic (mm Hg) 120 01/26/2017 [facility] Diastolic (mm Hg) 69 01/26/2017 [facility] Hospital Respitory Rate 20 01/26/2017 [facility] Height 157.48 cm 01/25/2017 [facility] Weight 51.449 01/25/2017 [facility] BMI Calculated 20.75 01/25/2017 [facility] Weight 52.273 01/25/2017 [facility] BMI Calculated 19.78 01/25/2017 [facility] Height 162.56 cm 01/25/2017 [facility] Systolic (mm Hg) 121 12/27/2016 [facility] Diastolic (mm Hg) 81 12/27/2016 [facility] Respitory Rate 16 12/27/2016 [facility] Heart Rate 82 12/27/2016 [facility] Temperature Oral (F) 98.3 F 12/27/2016 [facility] Temperature Oral (F) 98.4 F 12/27/2016 [facility] Respitory Rate 18 12/27/2016 [facility] Systolic (mm Hg) 126 12/27/2016 [facility] Diastolic (mm Hg) 81 12/27/2016 [facility] BMI Calculated 18.92 12/27/2016 [facility] Weight 50 12/27/2016 [facility] Heart Rate 89 12/27/2016 [facility] Height 162.56 cm 12/27/2016 [facility] Height 162.56 cm 02/06/2012 [place] Weight 47.273 02/06/2012 [facility] Height 162.56 cm 11/29/2011 [place] Weight 50.000 11/29/2011 [place] Height 162.56 cm 10/25/2011 [place] Weight 54.545 10/25/2011 [place] Height 162.56 cm 05/23/2011 [place] Weight 50.000 05/23/2011 [place] Temperature Oral (F) 98.5 F 05/08/2011 [place] Diastolic (mm Hg) 57 05/08/2011 [place] [facility] Systolic (mm Hg) 107 05/08/2011 [place] Heart Rate 57 05/08/2011 [place] Respitory Rate 16 05/08/2011 [facility] [place] Weight 50.000 05/08/2011 [facility] [place] Height 162.56 cm 05/08/2011 [place] Temperature Oral (F) 98.6 F 05/08/2011 [facility] [place] Diastolic (mm Hg) 70 05/08/2011 [facility] [place] [facility] Systolic (mm Hg) 127 05/08/2011 [facility] [place] Heart Rate 83 05/08/2011 [facility] [place] Respitory Rate 16 05/08/2011 [facility] [place] Respitory Rate 18 04/20/2011 [place] Heart Rate 79 04/20/2011 [facility] [place] Diastolic (mm Hg) 75 04/20/2011 [facility] [place] [facility] Systolic (mm Hg) 119 04/20/2011 [facility] [place] Diastolic (mm Hg) 97 04/20/2011 [facility] [place] [facility] Heart Rate 80 04/20/2011 [facility] [place] Systolic (mm Hg) 148 04/20/2011 [facility] [place] Respitory Rate 20 04/20/2011 [place] Weight 50.000 04/20/2011 [facility] [place] Systolic (mm Hg) 122 04/20/2011 [place] Temperature Oral (F) 98.0 F 04/20/2011 [place] Respitory Rate 18 04/20/2011 [place] Heart Rate 79 04/20/2011 [facility] [place] Diastolic (mm Hg) 75 04/20/2011 [place] [facility] Temperature Oral (F) 98.0 F 03/26/2011 [place] Respitory Rate 18 03/26/2011 [place] Heart Rate 69 03/26/2011 [facility] [place] Systolic (mm Hg) 112 03/26/2011 [place] Diastolic (mm Hg) 60 03/26/2011 [facility] [place] Height 160.02 cm 03/26/2011 [facility] [place] Weight 53.636 03/26/2011 [place] Temperature Oral (F) 99.0 F 03/26/2011 [place] Diastolic (mm Hg) 67 03/26/2011 [facility] [place] [facility] Systolic (mm Hg) 115 03/26/2011 [facility] [place] Respitory Rate 16 03/26/2011 [place] Heart Rate 75 03/26/2011 [facility] [place] Diastolic (mm Hg) 51.0 02/11/2011 [facility] [place] [facility] Respitory Rate 14.0 02/11/2011 [facility] [place] Systolic (mm Hg) 100.0 02/11/2011 [facility] [place] Heart Rate 59.0 02/11/2011 [place] Temperature Oral (F) 98.1 F 02/11/2011 [facility] [place] Diastolic (mm Hg) 54.0 02/11/2011 [place] [facility] Systolic (mm Hg) 102.0 02/11/2011 [place] Temperature Oral (F) 97.5 F 02/11/2011 [place] Heart Rate 61.0 02/11/2011 [facility] [place] Respitory Rate 16.0 02/11/2011 [place] Height 162.56 cm 02/11/2011 [facility] [place] Weight 56.96 02/11/2011 [facility] [place] Respitory Rate 18.0 02/11/2011 [place] Temperature Oral (F) 98.0 F 02/11/2011 [place] Heart Rate 61.0 02/11/2011 [place] Systolic (mm Hg) 111.0 02/11/2011 [place] Diastolic (mm Hg) 61.0 02/11/2011 [place] [facility] Weight 52.273 02/11/2011 [place] Height 162.56 cm 02/11/2011 [place] Diastolic (mm Hg) 59.0 01/15/2011 [place] [facility] Systolic (mm Hg) 105.0 01/15/2011 [place] Temperature Oral (F) 97.0 F 01/15/2011 [place] Heart Rate 59.0 01/15/2011 [place] Respitory Rate 18.0 01/15/2011 [place] Temperature Oral (F) 97.2 F 01/15/2011 [place] Respitory Rate 18.0 01/15/2011 [place] Heart Rate 71.0 01/15/2011 [place] Diastolic (mm Hg) 59.0 01/15/2011 [place] Systolic (mm Hg) 106.0 01/15/2011 [place] Rate 18.0 01/15/2011 [place] Systolic (mm Hg) 110.0 01/15/2011 [place] Heart Rate 62.0 01/15/2011 [place] Temperature Oral (F) 97.9 F 01/15/2011 [place] Diastolic (mm Hg) 58.0 01/15/2011 [place] Height 162.56 cm 01/15/2011 [place] Weight 56.818 01/15/2011 [place] Height 162.56 cm 01/14/2011 [place] Weight 50.0 01/14/2011 [place] Systolic (mm Hg) 115.0 12/22/2010 [place] Diastolic (mm Hg) 78.0 12/22/2010 [place] Peripheral Pulse Rate 74.0 12/22/2010 [place] Respitory Rate 16.0 12/22/2010 [place] Height 162.56 cm 12/22/2010 [place] Weight 52.273 12/22/2010 [place] Temperature Oral (F) 98.2 F 12/22/2010 [place] Respitory Rate 16.0 12/22/2010 [place] Peripheral Pulse Rate 75.0 12/22/2010 [place] Diastolic (mm Hg) 77.0 12/22/2010 [place] Systolic (mm Hg) 125.0 12/22/2010 [place] En[place] Location Location Encounter Encounter Reason Attending ADM RI Stat Source Details Type Number For Provider Date Date Visit Emergency [id number] ABD TRA PSYK 08/15 08/16 Acti ve [facility] 8 PAIN, /2009 [place] Emergency [id number] UPPER BE 09/20 09/21 [facility] 9 ABDOMINA WHITE GREEN /2009 [place] Emergency [id number] EAR PAIN TRA PSYK 10/09 10/[facility] [place] OU [id number] CHEST TAJUDDIN 10/31 11/02 Active [place] 1 PAIN CONSUELO /2009 [place] Emergency [id number] ABDOMINA TROY 01/03 01/03 Active [place] 2 L PAIN ROW[place] /2009 [place] O[place] [id number] ABDOMINA CHRISTOPHER 01/05 01/07 Activ e [place] 4 L PAIN GONZALEZ /2009 [place] Emergency [id number] [place] TRA PSYK 07/21 07/21 Acti ve [place] 6 HIGH,VAG /2010 [place] BLEEDING Emergency [id number] FACIAL TROY 10/07 10/07 Active [place] 7 AND NECK [place] /2010 [place] Inpatient [id number] FACIAL TARAH 10/09 10/13 Active [facility] 8 NECK BRIDGES /2010 [place] Emergency [id number] MOISE MONTEMAYOR 12/22 12/22 Disc harg [facility] ed [place] OU [id number] CHEST DEE CROCKETT 01/14 01/15 Active [facility] 0 PAIN /2010 [place] OU [id number] CHEST DEE CROCKETT 02/11 02/11 [facility] 1 PAIN, /2010 [place] S,HYPERG LYCEMIA, UTI Emergency [id number] LOWER LIZY 03/25 03/26 Active [facility] [place] 2 ABD WISEMAN /2010 [place] HIGH [place] Emergency [id number] RIGHT LIZY 04/19 04/20 Active [facility] 3 ABDOMINA WISEMAN /2011 [place] BLOOD IN URINE Emergency [id number] BLEEDING TROY 05/07 05/07 Active [facility] 4 / RT [place] /2011 [place] PA[place] Emergency [id number] ABDOMINA VIMI SHOEMAKER 05/22 05/23 Ac tive [facility] 5 L PAIN /2011 [place] BLOOD [place] Emergency [id number] LEFT VIMI SHOEMAKER 10/23 10/24 Acti ve [facility] 6 LOWER /2011 [place] L PAIN Emergency [id number] BLOOD VIMI SHOEMAKER 11/27 11/27 Acti ve [facility] 7 SUGAR /2011 [place]OB[place]M [place] YEIMY [id number] [place] 02/05 02/05 Discharg [facility] 9 BAVISHI ed [facility] Outpatient [id number] ABDOMINA GUIDO 02/16 Active [facility] [id number] Moise Montemayor 12/27 12/27 [facility] [place] [facility] [id number] Greg 01/25 01/26 J[place] 1 Kayla /2016 [facility] Emergency [id number] Rudolph 02/25 02/25 [place] 2 Pilar Jr [facility] Emergency [id number] Rudolph 02/26 02/26 [place] 3 [place] 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 [...] Status Never smoker; Ready to change: No; Paulette rns about tobacco use in household: No; Exposure to Tobacco Smoke None; Lives with someone who smokes; Cigarette Smoking Last 365 Days No; Reg Smoking Cessation Counseling No Family History No Data Provided for This Section Advance Directives No Data Provided for This Section Functional Status No Data Provided for This Section
--- OUTSIDE RECORDS SUMMARY | 2019-11-15 19:04 | XMS REPORT | Continuity of Care Document ---
:1965 Author Organization [facility] t Address [address] [place] [address] Care Team Providers Name Role Phone Sharpless [...] 2017-02-03 Memoria 9-15 10:25:00 l HURT 00:00: Jona TOES 00 Active 12/27/2016 [facility] Jona ABDOMINAL Diagnosis Active 2011-042012-02-17 Memoria PAIN 0-26 10:42:00 l 00:00: Osgood ABDOMINAL 00 PAIN Active 02/07/2012 [facility], [place] EGD Diagnosis Active 2011-042012-02-06 Mem oria 0-24 10:10:00 l EGD 06:00: Jona 00 Active 02/05/2012 [facility] BLOOD Diagnosis Active 2011-12-11 Mem oria SUGAR 8-16 11:15:00 l PROBLEM BLOOD 15:00: Osgood SUGAR 00 PROBLEM Active 11/28/2011 [place] LEFT LOWER Diagnosis Active 2011-12-11 Memoria ABDOMINAL 7-12 10:48:00 l PAIN LEFT 08:00: Jona LOWER 00 ABDOMINAL PAIN Active 10/24/2011 [place] ABDOMINAL Diagnosis Active 2011-12-11 Memoria PAIN HIGH 2-08 11:09:00 l BLOOD 22:00: Osgood SUGAR ABDOMINAL 00 PAIN HIGH BLOOD SUGAR Active 05/22/2011 [place] BLEEDING/ Diagnosis Active 2011-12-11 Memoria RT SIDE 1-24 11:06:00 l PAIN 08:00: Osgood BLEEDING/ 00 RT SIDE PAIN Active 05/07/2011 [place] RIGHTABDOM Diagnosis Active 2011-04-19 Memoria INAL PAIN 1-06 20:37:00 l . AND 00:00: Osgood BLOOD IN RIGHTABDOM 00 URINE INAL PAIN . AND BLOOD IN URINE Active 04/19/2011 [place] RIGHT Diagnosis Active 2011-12-20 Mem oria ABDOMINAL 1-06 13:03:00 l PAIN, RIGHT 00:00: Osgood BLOOD IN ABDOMINAL 00 URINE PAIN, BLOOD IN URINE Active 04/19/2011 [place] LOWER ABD Diagnosis Active 2010-042011-12-11 Memoria PAIN/ HIGH 2-12 11:02:00 l SUGAR LOWER 00:00: Jona ABD PAIN/ 00 HIGH SUGAR Active 03/25/2011 [place] CHEST PAIN Diagnosis Active 2010-042011-02-11 Memoria AND 0-30 01:56:00 l TIGHTNESS CHEST 18:00: Jorge Luis n PAIN AND 00 TIGHTNESS Active 02/10/2011 [place] CHEST Diagnosis Active 2010-042011-02-15 Mem oria PAIN, 0-30 21:58:00 l DIZZINESS, CHEST 18:00: Eugenia nn HYPERGLYCE PAIN, 00 EB, UTI DIZZINESS, HYPERGLYCE EB, UTI Active 02/10/2011 [place] CHEST PAIN Diagnosis Active 2010-042011-01-15 Memoria 0-03 16:36:00 l CHEST 15:00: Jona PAIN 00 Active 01/14/2011 [place] RIGHT KNEE Diagnosis Active 2010-12-22 Memoria 1ST 3 TOES 9-10 13:04:00 l NUMB RIGHT 11:00: Osgood KNEE 1ST 3 00 TOES NUMB Active 12/22/2010 [place] FACIAL Diagnosis Active 2010-12-22 Mem oria NECK 6 13:04:00 l CELLULITIS FACIAL 00:00: Herm ava NECK 00 CELLULITIS Active 10/08/2010 [place] FACIAL AND Diagnosis Active 2010-12-22 Memoria NECK PAIN 10-07 13:04:00 l FACIAL 06:00: Jona AND NECK 00 PAIN Active 10/07/2010 [place] SUGAR Diagnosis Active 2010-12-22 Mem oria HIGH,VAGIN 07-21 13:04:00 l AL SUGAR 00:00: Osgood BLEEDING HIGH,VAGIN 00 AL BLEEDING Active 07/21/2010 [place] ABD PAIN Diagnosis Active 2010-12-22 M emoria 01-05 13:04:00 l ABD PAIN 00:00: Jorge Luis n 00 Active 01/05/2010 [facility] EAR PAIN Diagnosis Active 2010-12-22 M emoria 10-09 13:04:00 l EAR PAIN 19:00: Jorge Luis n 00 Active 10/09/2009 [place] UPPER Diagnosis Active 2010-12-22 Mem oria ABDOMINAL 09-20 13:04:00 l PAIN UPPER 14:00: Jona ABDOMINAL 00 PAIN Active 09/20/2009 [place] ABD PAIN, Diagnosis Active 2010-12-22 Memoria HIGH SUGAR 5- 13:04:00 l ABD 00:00: Osgood PAIN, HIGH 00 SUGAR Active 08/15/2009 [place] Abdominal Problem Active 2012-02-19 Me moria pain 09:23:16 l Osgood Abdominal pain Active Problem 02/19/2012 [facility], [place] Cellulitis Problem Active 2012-02-19 M emoria 09:23:16 l Jona Cellulitis Active Problem 02/19/2012 [facility] [place] Chest pain Problem Active 2012-02-19 M emoria 09:23:16 l Chest Jona pain Active Problem 02/19/2012 [facility] [place] Hyperglyce Problem Active 2012-02-19 M emoria eb 09:23:16 l Jona Hyperglyce eb Active Problem 02/19/2012 [facility] [place] UTI - Problem Active 2012-02-19 Memor ia Urinary 09:23:16 l tract UTI - Osgood infection Urinary tract infection Active Problem 02/19/2012 [facility] [place] Diabetes Problem Active 2017-03-01 Mem oria mellitus 04:36:24 l (disorder) Diabetes He rmann mellitus (disorder) Active Problem 03/01/2017 [facility] Restless Problem Active 2017-03-01 Mem oria legs 04:36:24 l (disorder) Restless He rmann legs (disorder) Active Problem 03/01/2017 [facility] Abdominal Problem Active 2017-03-01 Me moria pain 04:36:24 l (finding) Osgood Abdominal pain (finding) Active Problem 03/01/2017 [facility] Chest pain Problem Active 2017-03-01 M emoria (finding) 04:36:24 l Chest Jona pain (finding) Active Problem 03/01/2017 [facility] Hyperglyce Problem Active 2017-03-01 M emoria eb 04:36:24 l (disorder) Jorge Luis n Hyperglyce eb (disorder) Active Problem 03/01/2017 [facility] Urinary Problem Active 2017-03-01 Nirmal feliz tract 04:36:24 l infectious Urinary Her pugh disease tract (disorder) infectious disease (disorder) Active Problem 03/01/2017 [facility] CHEST PAIN Diagnosis Active 2010-12-22 Memoria NOS 13:04:00 l CHEST Jona PAIN NOS Active [place] CELLULITIS Diagnosis Active 2010-12-22 Memoria NOS 13:04:00 l Jona CELLULITIS NOS Active [place] Hyperglyce Problem 2016-2017-03-01 2017-03-01 Memoria eb, -14 04:36:24 04:36:24 l unspecifie 06:00: Jorge Luis n d Hyperglyce 00 eb, unspecifie d 02/25/2017 03/01/2017 [facility] Fever, Problem 2016-2017-03-01 2017-03-01 M emoria unspecifie -14 04:36:24 04:36:24 l d Fever, 06:00: Jona unspecifie 00 d 02/25/2017 03/01/2017 [facility] Radiculopa Problem 2016-2017-02-28 2017-02-28 Memoria thy, 1-14 05:26:25 05:26:25 l cervical 06:00: Jona region Radiculopa 00 thy, cervical region 02/25/2017 02/28/2017 [facility] Displaced Problem 2017-2016-12-30 2016-12-30 Memoria unspecifie 9-15 05:13:20 05:13:20 l d fracture 05:00: Jorge Luis n of right Displaced 00 lesser unspecifie toe(s), d fracture initial of right encounter lesser for closed toe(s), fracture initial encounter for closed fracture 7 12/30/2016 [facility] Allergies, Adverse Reactions, Alerts Allergy Allergy Status Severity Reaction(s) Onset Inactive Treating Comm ents Source Name Type Date Date Clinician Poli Propensi Active [facility] - [facility] reaction [facility] Ritalin Ritalin Active Emmanuelle Tenorio Social History Social Habit Start Date Stop Date Quantity Comments Source Sex Assigned At [facility] Social History 2017-02-03 2017-02-03 [facility] hermila 15:24:44 15:24:44 Smoking Status Start Date Stop Date Source Never smoker [facility] Medications Ordered Filled Start Stop Current Ordering Indication Dosage Frequency Signature Comments Components Source Medication Medication Date Date Medication? Clinician (SIG) Name Name rOPINIRole 2018 Yes 1mg [id number] Take [address] [facility] (REQUIP) 1 3-26 [id number] by mouth 3 [facility] - [facility] tablet 11:54: 3D (three) Medic al 47 times Center daily. pregabalin Yes 50mg Q.[id number] Take [address] [facility] (LYRICA) 50 3-26 [id number] by mouth 3 [facility] - MG capsule 11:54: 3D (three) Medi steven 47 times Center daily. GI cocktail 2016-04 No Notes: Nirmal feliz 1-15 G.I. l 05:06: Cocktail = Osgood 00 antacid with simethicon e 22.5 mL - lidocaine viscous 7.5 mL Zofran 2016-04 No Notes: Memoria 1-15 (Same as: l 04:41: Zofran) Osgood 00 MEDICATION WASTE Product Size: 4 mg Product Wasted: ___ mg Zofran 2016-04 No Notes: Memoria 1-15 (Same as: l 02:34: Zofran) Jona 00 MEDICATION WASTE Product Size: 4 mg Product Wasted: ___ mg Morphine 2016-04 No Notes: Memoria 1-15 (Same l 02:34: as:MORPhin Osgood 00 e Sulfate) Lidocaine 2016-04 Yes Notes: Memori a Hydrochlori -15 Preservati l de 10 MG/ML 02:33: ve free. 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 ibuprofen 2016-04 Yes 800 mg = 1 [...] day, # 6 tab, 0 Refill(s), Pharmacy: [facility] #[id number] Humalog 100 2016-04 Yes 4 unit, Mem oria units/mL 0-15 SUB-Q, l 14:48: TID-Before 00 Meals, hold insulin injection if your blood sugar is less than 140 mg/dL., # 10 mL, 0 Refill(s), Pharmacy: [facility] #[id number] pantoprazol 2016-04 Yes 40 mg = 1 M emoria e 40 MG 0-15 tab, PO, l Enteric 14:48: Daily, # Jorge Luis n Coated 00 30 tab, 0 Tablet Refill(s), [Protonix] Pharmacy: [facility] #[id number] Calcium 2016-04 Yes 500 mg = 1 Nirmal feliz Carbonate 0-15 tab, PO, l 500 MG 14:48: TID, # 6 Jona Chewable 00 tab, 0 Tablet Refill(s), Pharmacy: [facility] #[id number] Insulin 2016-04 Yes 15 unit, Memori a Glargine 0-15 SUB-Q, l 100 UNT/ML 14:48: Daily, # Her pugh Injectable 00 10 mL, 0 Solution Refill(s), [Lantus] Pharmacy: [facility] #[id number] Calcium 2016-04 No Notes: Memoria Gluconate 0-15 WASTE: F/P l 14:47: - Sink; E Jona 00 - Municipal Trash Bin Calcium 2016-04 [...] Memoria 0-15 (Same as: l 02:00: Lyrica) Osgood 00 Calcium 2016-04 No Notes: Memoria Carbonate 0-14 (Same As: l 22:40: Tums) Jona Calcium Carbonate 500 mg = 200 mg elemental calcium Dose = mg calcium carbonate ( mg elemental calcium) Protonix 2016-04 No Notes: Memoria 0-14 Tablet l 22:00: should not Jona 00 be chewed or crushed. 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 Jona 00 (Same as: Tylenol) Acetaminoph 2016-04 No Notes: Nirmal feliz en 325 MG / 0-14 (Same as: l Hydrocodone 06:32: [place] Eugenia nn Bitartrate 00 325/5) Do 5 MG Oral not exceed Tablet 4gm/day of acetaminop hen. 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 Saline 2016-04 No Notes: Memoria Flush 0.9% 0-14 (Same as: l 06:32: BD Osgood 00 Posiflush) Ketorolac 2016-04 No 15 mg, Memori a 0-14 Route: IV, l 05:00: ONCE, Osgood 00 Dosing Weight 52.273, kg, Start date: 01/25/17 0:00:00 CDT, Stop date: 01/25/17 0:00:00 CDT Famotidine 2016-04 No 20 mg, Memor ia 0-14 Route: l 05:00: IVP, ONCE, Dosing Weight 52.273, kg, Priority: STAT, Start date: 01/25/17 0:00:00 CDT, Stop date: 01/25/17 0:00:00 CDT Sodium 2016-04 No 3,000 mL, Memori a Chloride 0-14 3000 l 0.9% 03:15: ml/hr, Osgood (Bolus) IV 00 Infuse Over: 1 hr, Route: IV, 3,000, Drug form: INJ, ONCE, Priority: STAT, Dosing Weight 52.273 kg, Start date: 01/24/17 22:15:00 CDT, Duration: 1 doses or times, Stop date: 01/24/17 22:15:00 CDT Sodium 2016-04 No 500 mL, Memoria Chloride 0-14 500 ml/hr, l 0.9% 03:09: Infuse Jona (Bolus) IV 00 Over: 1 hr, Route: IV, 500, Drug form: INJ, ONCE, Priority: STAT, Dosing Weight 52.273 kg, Start date: 01/24/17 22:09:00 CDT, Duration: 1 doses or times, Stop date: 01/24/17 22:09:00 CDT Zofran 2016-04 No 4 mg, Memoria 0-14 Route: l 03:07: IVP, Drug Osgood 00 form: INJ, ONCE, Dosing Weight 52.273, kg, Priority: STAT, Start date: 01/24/17 22:07:00 CDT, Stop date: 01/24/17 22:07:00 CDT Morphine 2016- No Notes: Memoria 0-14 (Same l 02:12: as:MORPhin Osgood 00 e Sulfate) Acetaminoph No 1 - 2 tab, Memoria en 300 MG / 12-27 PO, Q4H, l Codeine 05:54: PRN Pain, Eugenia nn Phosphate 00 X 2 day, # 30 MG Oral 30 tab, 0 Tablet Refill(s) [Tylenol with Codeine #3] Acetaminoph No Notes: Nirmal feliz en 325 MG / 12-27 (Same as: l Hydrocodone 04:47: [place] Eugenia nn Bitartrate 00 325/5) Do 5 MG Oral not exceed Tablet 4gm/day of [[place] acetaminop 5/325] hen. insulin Yes QD Inject [...] Duration: 30 day, Stop date: 12/28/11 21:50:00 [place] 5/325 Yes Juan 1-2 tab, M emoria oral tablet 7-13 Keith PO, Q4-6H, l 06:12: Yeaton PRN, 15 Jona 25 tab, Pain, Substituti on Allowed, Soft [...] Keith Rate: l 0.9% 03:06: Yeaton 1,000 Jona (Bolus) IV 00 ml/hr, 1,000 [...] 2-09 Roche 0.05 mL, l 07:10: Route: Osgood 00 IVP, Drug form: SOLN, ONCE, Priority: STAT, Start date: 05/23/11 1:10:00, Stop date: 05/23/11 1:10:00 Visipaque 2011-0 Yes Vimi 32,000 mg, Me moria 2-09 Roche 100 mL, l 05:47: Route: IV, Osgood Drug form: INJ, ONCE, Start date: 05/22/11 23:47:00, Stop date: 05/22/11 23:47:00 Insulin 2011-0 No Vimi 5 unit, Memoria regular 2-09 Roche 0.05 mL, l 05:36: Route: Jona 00 SUB-Q, Drug form: SOLN, ONCE, Priority: STAT, Start date: 05/22/11 23:36:00, Stop date: 05/22/11 23:36:00 morphine 2011-0 No Vimi 2 mg, 0.4 Nirmal feliz Sulfate 2-09 Roche mL, Route: l 05:04: IVP, Drug Osgood form: INJ, ONCE, Priority: STAT, Start date: 05/22/11 23:04:00, Stop date: 05/22/11 23:04:00 ondansetron 2011-0 No Vimi 4 mg, 2 Mem oria 2- Roche mL, Route: l 05:04: IVP, Drug [...] tab, PO, l tablet 02:08: TID, 9 Osgood 33 tab, Substituti on Allowed Cipro 500 2011-0 Yes Sonal 500 mg, 1 M emoria mg oral 1-25 Raulito tab, PO, l tablet 02:07: Q12H, 28 Osgood 41 tab, Substituti on Allowed, TAB Pyridium 2011-0 No Sonal 200 mg, 2 Me moria 1-25 Raulito tab, l 02:03: Route: PO, Osgood Drug form: TAB, ONCE, Priority: STAT, Start date: 05/07/11 20:03:00, Stop date: 05/07/11 20:03:00 Cipro 2011-0 No Sonal 500 mg, 2 Memor ia 1-25 Raulito tab, l 02:03: Route: PO, Jona Drug form: TAB, ONCE, Priority: STAT, Start [...] ing Nausea and Vomiting, Substituti on Allowed [place] Yes Juan 1 tab, PO, Memor ia [...] Keith 0.1 mL, l 05:31: Yeaton Route: Jona 00 IVP, Drug form: SOLN, ONCE, Priority: STAT, Start date: 04/19/11 23:31:00, Stop date: 04/19/11 23:31:00 Sodium 2011-0 No Juan 1,000 mL, Memor ia Chloride -07 Keith Rate: l 0.9% 03:30: Yeaton 1,000 Jona (Bolus) IV 00 ml/hr, 1,000 [...] 2011-0 No Juan 4 mg, Nirmal feliz 1-07 Keith Route: l 03:30: Yeaton IVP, ONCE, Eugenia nn 00 Priority: STAT, Start date: 04/19/11 21:30:00, Stop date: 04/19/11 21:30:00 ketorolac 2011-0 No Juan 30 mg, Memor ia -07 Keith Route: l 03:30: Yeaton IVP, ONCE, Eugenia nn Priority: STAT, Start date: 04/19/11 21:30:00, Stop date: 04/19/11 21:30:00 hydromorpho 2011-0 No Juan 1 mg, Nirmal feliz ne 04-20 Keith Route: l 03:30: Yeaton IVP, ONCE, Eugenia nn 00 Priority: STAT, Start date: 04/19/11 21:30:00, Stop date: 04/19/11 21:30:00 magnesium 2010-04 Yes Mila 150 ml, Me moria citrate 2-13 Gallatin Phelps PO, ONCE, l 8.85% oral 05:57: 300 ml, Herm ava liquid 30 Substituti on Allowed, Maintenanc e, LIQ MiraLax 2010-04 Yes Mila 17 gm, PO, M emoria oral powder 2-13 Zay Phelps Daily, 255 l for 05:57: gm, Osgood reconstitut 18 Substituti ion on Allowed, PDR/REC Phenergan 2010-04 Yes Mila 25 mg, 1 M emoria 25 mg oral 2-13 Gallatin Phelps tab, PO, l tablet 05:57: Q6H, [...] Mila 10 unit, Mem oria regular 2-13 Zay Phelps 0.1 mL, l 03:16: Route: Osgood 00 IVP, Drug form: SOLN, ONCE, Priority: STAT, Start date: 03/25/11 21:16:00, Stop date: 03/25/11 21:16:00 Omnipaque 2010-04 Yes Mila 30,000 mg, Memoria 300 2-13 Zay Phelps 100 mL, l 03:15: Route: IV, Jona 00 Drug form: SOLN, ONCE, Start date: 03/25/11 21:15:00, Stop date: 03/25/11 21:15:00 Saline 2010-04 No Mila 5 ml, Memoria Flush 0.9% 2-13 Gallatin Phelps Route: l 02:19: IVP, Drug Jona 00 Form: INJ, PRN, PRN Line Flush, Start date: 03/25/11 20:19:00, Duration: 30 day, Stop date: 04/24/11 20:18:00 ondansetron 2010-04 No Mila 4 mg, 2 Memoria 2-13 Gallatin Phelps mL, Route: l 02:19: IVP, Drug Jona 00 form: INJ, ONCE, Priority: STAT, Start date: 03/25/11 20:19:00, Stop date: 03/25/11 20:19:00 morphine 2010-04 No Mila 4 mg, 0.8 M emoria Sulfate 2-13 Gallatin Phelps mL, Route: l 02:19: IVP, Drug Osgood 00 form: INJ, ONCE, Priority: STAT, Start date: 03/25/11 20:19:00, Stop date: 03/25/11 20:19:00 nitroglycer 2010-04 No 0.4 mg, 1 M emoria in 0.4 mg 0-31 tab, SL, l sublingual 17:47: Q5Min, Eugenia nn tablet 03 PRN, as needed for chest pain, Substituti on Allowed aspirin 81 2010-04 Yes 1 tab, PO, M emoria mg tablet, 0-31 Daily, l chewable 17:29: tab, Osgood 44 Substituti on Allowed, CHEWTAB Cipro 2010-04 No Dk 250 mg, 1 Memori a 0-31 Ari tab, l 16:00: Jonathan Route: PO, Herm ava 00 Drug form: TAB, [id number], Start date: 02/11/11 11:00:00, Duration: 30 day, Stop date: 03/12/11 23:00:00 magnesium 2010-04 No Dakota 400 mg, 1 M emoria oxide 0-31 Minhvu Victoriano tab, l 14:00: [place] Route: PO, Jona 00 Drug form: TAB, Daily, Start date: 02/11/11 9:00:00, Duration: 30 day, Stop date: 03/12/11 9:00:00 Lantus 2010-04 No Dk 70 unit, Memori a 0-31 Ari Route: l 14:00: Jonathan SUB-Q, Osgood Drug form: SOLN, Daily, Start date: 02/11/11 9:00:00, Duration: 30 day, Stop date: 03/12/11 9:00:00 Levemir 2010-04 No Dk 70 unit, Memor ia FlexPen 0-31 Ari 0.7 mL, l 14:00: Jonathan Route: Osgood 00 SUB-Q, Drug form: INJ, Daily, Start [...] 1 M emoria mg oral 0-31 Minhvu Victoriano tab, PO, l tablet 11:36: [place] BID, 6 Osgood 36 tab, Substituti on Allowed Cipro 2010-04 No Dk 250 mg, 1 Memori a 0-31 Ari tab, l 08:00: Jonathan Route: PO, Herm ava 00 Drug form: TAB, [id number], Start date: 02/11/11 3:00:00, Duration: 30 day, [...] Me moria 0-31 Ari tab, l 07:05: [place] Route: [...] 0-31 Ari 0.06 mL, l Sliding 07:05: Jonathan Route: Eugenia nn Scale - Low 00 [...] Syringe 0-31 Ari ml, Route: l 07:05: Jonahtan IVP, Drug Eugenia nn 00 Form: INJ, [...] SL Tab 0-31 Ari tab, l 07:05: Jonathan Route: SL, Herm ava 00 Drug form: TAB, Q5Min, PRN Chest Pain, Start date: 02/11/11 2:05:00, Duration: 3 doses or times, Stop date: Limited # of times morphine 2010-04 No Dk 2 mg, 0.4 Mem oria Sulfate 0- Ari mL, Route: l 07:05: Jonathan IVP, Drug Eugenia nn 00 form: INJ, Q15Min, PRN Chest Pain, Start date: 02/11/11 2:05:00, Duration: 2 doses or times, Stop date: Limited # of times acetaminoph 2010-04 No Dk 650 mg, 2 Memoria en 0- Ari tab, l 07:05: Jonathan Route: PO, Herm ava 00 Drug form: TAB, Q4H, PRN Headache, [...] Shauna 150 mL, l 04:55: Route: IV, Osgood 00 Drug form: INJ, ONCE, Start date: 02/10/11 23:55:00, Stop date: 02/10/11 23:55:00 Zofran 2010-04 No Penelope S 4 mg, 2 Memori a 0-31 Shauna mL, Route: l 04:28: IVP, Drug Jona 00 form: INJ, ONCE, Start date: 02/10/11 23:28:00, Stop date: 02/10/11 23:28:00 Cipro 2010-04 No Penelope S 400 mg, Memoria 0-31 Shauna Route: l 04:08: IVPB, Osgood 00 ONCE, Priority: STAT, Start date: 02/10/11 23:08:00, Stop date: 02/10/11 23:08:00 Insulin 2010-04 No Penelope S 10 unit, Nirmal feliz regular 0-31 Shauna Route: l 03:56: SUB-Q, Osgood 00 ONCE, Priority: STAT, Start date: 02/10/11 22:56:00, Stop date: 02/10/11 22:56:00 Sodium 2010-04 No Penelope S 1,000 mL, Nirmal feliz Chloride 0- Shauna Rate: l 0.9% 03:55: 1,000 Osgood (Bolus) IV 00 ml/hr, 1000 mL Infuse over: 1 hr, Route: IV, Total Volume: 1,000, Bolus Dose, Priority: STAT, Start date: 02/10/11 22:55:00, Duration: 1 doses or times, Stop date: 02/10/11 23:54:00 BD 2010-04 No Penelope S 15 mL, Memoria Posiflush 0- Shauna Route: l SF 02:55: IVP, Drug Osgood 00 Form: INJ, PRN, PRN Line Flush, Start date: 02/10/11 21:55:00, Duration: 30 day, Stop date: 03/12/11 20:54:00 aspirin 325 2010-04 No Penelope S 325 mg, M emoria mg tablet 0- Shauna Route: PO, l 02:47: Drug form: Osgood 00 TAB, ONCE, Priority: STAT, Start date: 02/10/11 21:47:00, Stop date: 02/10/11 21:47:00 metoprolol 2010-04 No Penelope S 50 mg, Mem oria tartrate 0- Shauna Route: PO, l 02:47: Drug form: Osgood 00 TAB, ONCE, (Hold if SBP < = 90 mmHg or if < = 100mmHg with symptomati c dizziness, or if HR < = 55), Start date: 02/10/11 21:47:00, Stop date: 02/10/11 21:47:00 nitroglycer 2010-04 No Penelope S 0.5 inch, Memoria in 2% 0-31 Shauna Route: l ointment 02:47: TOP, Drug Herm ava Form: OINT, ONCE, STAT, Start date: 02/10/11 21:47:00, Stop date: 02/10/11 21:47:00 nitroglycer 2010-04 No Penelope S 0.4 mg, 1 Memoria in 0-31 Shauna tab, l 02:47: Route: SL, Jona 00 Drug form: TAB, Q5Min, PRN Chest Pain, (Hold if SBP < = 90 mmHg or if < = 100mmHg with symptomati c dizziness) , Start date: 02/10/11 21:47:00, Duration: 3 doses or times, Stop date: Limited # of times morphine 2010-04 No Penelope S 2 mg, Memori a Sulfate 0-31 Shauna Route: l 02:47: IVP, ONCE, Jona Priority: STAT, Start date: 02/10/11 21:47:00, Stop date: 02/10/11 21:47:00 Saline 2010-04 No Penelope S 5 ml, Memoria Flush 0.9% 0-31 Shauna Route: l 02:47: IVP, PRN, Osgood 00 PRN Line Flush, Start date: 02/10/11 21:47:00, Duration: 30 day, Stop date: 03/12/11 20:46:00 aspirin 325 2010-04 No Giovani 325 mg, 1 Memoria mg tablet, 0-05 Xiaoguang tab, l enteric 14:00: Edwards Route: PO, Herm ava coated 00 Drug form: ECTAB, Daily, Start date: 01/16/11 9:00:00, Duration: 30 day, Stop date: 02/14/11 9:00:00 Requip 2010-04 No Dakota 1 mg, 1 Memori a 0-05 Minhvu Victoriano tab, l 02:00: [place] Route: PO, Osgood 00 Drug form: TAB, Bedtime, Start date: 01/15/11 [...] Q12H, l tablet 15:37: Edwards 30 tab, Osgood 31 Substituti on Allowed, TAB aspirin 325 2010-04 Yes Giovani 9,750 mg, Memoria mg tablet, 0-04 Xiaoguang 30 tab, l enteric 15:37: Edwards PO, Daily, Herm ava coated 18 30 tab, Substituti on Allowed, ECTAB metoprolol 2010-04 No Giovani 12.5 mg, Me moria 0-04 Xiaoguang 0.5 tab, l 15:36: [place] Route: PO, [place] 00 Drug form: TAB, Q12H, Priority: NOW, Start date: 01/15/11 10:36:00, Duration: 30 day, Stop date: 02/14/11 9:00:00 Fioricet 2010-04 Yes Tajuddin 1 tab, PO, Memoria oral tablet 0-04 Qasimali Q4H, PRN, l 14:18: [place] 30 tab, Jona 21 Headache, Substituti on Allowed, Maintenanc e, [...] tablet 0-04 tab, PO, l 13:58: Bedtime, Osgood 11 Substituti on Allowed ibuprofen 2010-04 No [...] Route: IM, l 00:22: [place] Drug form: [place] 00 PDR/INJ, PRN, PRN Blood Glucose Results, Start date: 01/14/11 19:22:00, Duration: 30 day, Stop date: 02/13/11 19:21:00 Insulin 2010-04 Beth Duncan 6 unit, Memor ia (Novolog) 0-04 Minhvu Victoriano 0.06 mL, l Sliding 00:22: [place] Route: Jona Scale - 00 SUB-Q, Very High Drug form: SOLN, Sliding Scale, PRN Blood Glucose Results, Start date: 01/14/11 19:22:00, Duration: 30 day, Stop date: 02/13/11 19:21:00 Dextrose 2010-04 Beth Duncan 25 gm, 50 Me moria 50% Syringe 0-04 Minhvu Victoriano ml, Route: l 00:22: [place] IM, Drug Jona 00 Form: INJ, PRN, PRN Blood Glucose Results, Start date: 01/14/11 19:22:00, Duration: 30 day, Stop date: 02/13/11 19:21:00 Saline 2010-04 No [place] 5 ml, Memoria Flush 0.9% 0-04 Minhvu Victoriano Route: l 00:21: [place] IVP, Drug [place] 00 Form: INJ, PRN, PRN Line Flush, [...] 650 mg, 2 Memoria en 0-04 Minhvu Victoriano tab, l 00:21: [place] Route: PO, [place] 00 Drug form: TAB, Q4H, PRN Headache, Start date: 01/14/11 19:21:00, Duration: 30 day, Stop date: 02/13/11 19:20:00 temazepam 2010-04 No Dakota 15 mg, 1 Me moria 0-04 Minhvu Victoriano cap, l 00:21: [place] Route: PO, Joan 00 Drug form: CAP, Bedtime, PRN Insomnia, Start date: 01/14/11 19:21:00, Duration: 30 day, Stop date: 02/13/11 19:20:00 ondansetron 2010-04 No Dakota 4 mg, 1 M emoria 0-04 Minhvu Victoriano tab, l 00:21: [place] Route: PO, Jona 00 Drug form: TAB, Q8H, PRN Nausea & Vomiting, Start date: 01/14/11 19:21:00, Duration: 30 day, Stop date: 02/13/11 19:20:00 aspirin 325 2010-04 No Moise G 325 mg, 1 Memoria mg tablet 0-03 Davis tab, l 23:59: Route: PO, Drug form: TAB, ONCE, Priority: STAT, [...] mL 0-03 Davis Rate: l 22:07: 1,000 Osgood 00 ml/hr, Infuse over: 1 hr, Route: [...] 1 tab, PO, Memoria 400 mg oral 12-22 Raulito Q4H, PRN, l tablet 18:32: 20 tab, Osgood 59 Pain, Substituti on Allowed acetaminoph Yes Sonal 1 tab, PO, Memoria en-hydrocod 12-22 Raulito Q4-6H, l one 500 18:32: PRN, 20 Osgood mg-5 mg 50 tab, Pain, oral tablet [...] Systolic (mm Hg) 2017-02-26 06:50:00 Nirmal rial Jona Diastolic (mm Hg) 2017-02-26 06:50:00 Mem o[facility] Jona Respitory Rate 2017-02-26 06:50:00 Memori al Jona Temperature Oral (F) 2017-02-26 06:50:00 97.6 F [facility] Heart Rate 2017-02-26 06:50:00 [facility] Respitory Rate 2017-02-26 04:30:00 [facility] Systolic (mm Hg) 2017-02-26 04:30:00 Nirmal rial Jona Diastolic (mm Hg) 2017-02-26 04:30:00 [facility] Jona Heart Rate 2017-02-26 04:30:00 [facility] Temperature Oral (F) 2017-02-26 00:55:00 98.8 F [facility] Weight 2017-02-26 00:55:00 [facility] BMI Calculated 2017-02-26 00:55:00 [facility] Height 2017-02-26 00:55:00 162.56 cm [facility] Systolic (mm Hg) 2017-02-26 00:55:00 Nirmal rial Jona Diastolic (mm Hg) 2017-02-26 00:55:00 [facility] Heart Rate 2017-02-26 00:55:00 [facility] Respitory Rate 2017-02-26 00:55:00 [facility] Respitory Rate 2017-02-25 07:35:00 [facility] Jona Systolic (mm Hg) 2017-02-25 07:35:00 Nirmal rial Jona Diastolic (mm Hg) 2017-02-25 07:35:00 [facility] Temperature Oral (F) 2017-02-25 07:35:00 98.2 F [facility] Heart Rate 2017-02-25 07:35:00 [facility] BMI Calculated 2017-02-25 05:05:00 [facility] Jona Weight 2017-02-25 05:05:00 [facility] Height 2017-02-25 05:05:00 162.56 cm [facility] Heart Rate 2017-02-25 05:05:00 [facility] Respitory Rate 2017-02-25 05:05:00 [facility] Jona Temperature Oral (F) 2017-02-25 05:05:00 97.8 F [facility] Systolic (mm Hg) 2017-02-25 05:05:00 Nirmal rial [facility]sg[facility] Diastolic (mm Hg) 2017-02-25 05:05:00 [facility] Weight 2017-02-25 04:55:00 [facility] Height 2017-02-25 04:55:00 167.64 cm [facility] Temperature Oral (F) 2017-02-25 04:55:00 97.8 F [facility] BMI Calculated 2017-02-25 04:55:00 [facility] Systolic (mm Hg) 2017-02-25 04:55:00 Nirmal rial [facility]sg[facility] Diastolic (mm Hg) 2017-02-25 04:55:00 [facility] Respitory Rate 2017-02-25 04:55:00 [facility] Heart Rate 2017-02-25 04:55:00 [facility] Jona Temperature Oral (F) 2017-01-26 16:47:00 98.5 F [facility] Heart Rate 2017-01-26 16:47:00 [facility] Respitory Rate 2017-01-26 16:47:00 [facility] Jona Systolic (mm Hg) 2017-01-26 16:47:00 Nirmal rial [facility]sg[facility] Diastolic (mm Hg) 2017-01-26 16:47:00 [facility] o[facility] Jona Heart Rate 2017-01-26 12:26:00 [facility] Respitory Rate 2017-01-26 12:26:00 [facility] Jona Temperature Oral (F) 2017-01-26 12:26:00 98.4 F [facility] Systolic (mm Hg) 2017-01-26 12:26:00 Nirmal rial Jona Diastolic (mm Hg) 2017-01-26 12:26:00 [facility] Temperature Oral (F) 2017-01-26 09:50:00 98.1 F [facility] Heart Rate 2017-01-26 09:50:00 [facility] Systolic (mm Hg) 2017-01-26 09:50:00 Nirmal rial [facility]sg[facility] Diastolic (mm Hg) 2017-01-26 09:50:00 [facility] Respitory Rate 2017-01-26 09:50:00 [facility] Jona Height 2017-01-25 05:58:00 157.48 cm [facility] Weight 2017-01-25 05:58:00 [facility] BMI Calculated 2017-01-25 05:58:00 [facility] Weight 2017-01-25 02:01:00 [facility] BMI Calculated 2017-01-25 02:01:00 [facility] Height 2017-01-25 02:01:00 162.56 cm [facility] Systolic (mm Hg) 2016-12-27 06:03:00 Nirmal rial [facility]sg[facility] Diastolic (mm Hg) 2016-12-27 06:03:00 [facility] Respitory Rate 2016-12-27 06:03:00 [facility] Jona Heart Rate 2016-12-27 06:03:00 [facility] Temperature Oral (F) 2016-12-27 06:03:00 98.3 F [facility] Temperature Oral (F) 2016-12-27 04:22:00 98.4 F [facility] Respitory Rate 2016-12-27 04:22:00 [facility] Jona Systolic (mm Hg) 2016-12-27 04:22:00 Nirmal rial Jona Diastolic (mm Hg) 2016-12-27 04:22:00 [facility] BMI Calculated 2016-12-27 04:22:00 [facility] Weight 2016-12-27 04:22:00 [facility] Heart Rate 2016-12-27 04:22:00 [facility] Height 2016-12-27 04:22:00 162.56 cm [facility] Height 2012-02-06 15:19:00 162.56 cm [facility] Weight 2012-02-06 15:19:00 [facility] Height 2011-11-29 02:35:00 162.56 cm [facility] Weight 2011-11-29 02:35:00 [facility] Height 2011-10-25 02:45:00 162.56 cm [facility] Weight 2011-10-25 02:45:00 [facility] Height 2011-05-23 04:48:00 162.56 cm [facility] Weight 2011-05-23 04:48:00 [facility] Temperature Oral (F) 2011-05-08 02:38:00 98.5 F [facility] Diastolic (mm Hg) 2011-05-08 02:38:00 [facility] o[facility] Jona Systolic (mm Hg) 2011-05-08 02:38:00 Nirmal rial [facility] Heart Rate 2011-05-08 02:38:00 [facility] Respitory Rate 2011-05-08 02:38:00 [facility] Weight 2011-05-08 00:09:00 [facility] Height 2011-05-08 00:09:00 162.56 cm [facility] Temperature Oral (F) 2011-05-08 00:09:00 98.6 F [facility] Diastolic (mm Hg) 2011-05-08 00:09:00 [facility] o[facility] Jona Systolic (mm Hg) 2011-05-08 00:09:00 Nirmal rial [facility] Heart Rate 2011-05-08 00:09:00 [facility] Respitory Rate 2011-05-08 00:09:00 [facility] Respitory Rate 2011-04-20 07:05:00 [facility] Heart Rate 2011-04-20 07:05:00 [facility] Diastolic (mm Hg) 2011-04-20 07:05:00 [facility] Systolic (mm Hg) 2011-04-20 07:05:00 Nirmal rial [facility]sg[facility] Diastolic (mm Hg) 2011-04-20 06:01:00 [facility] Heart Rate 2011-04-20 06:01:00 [facility] Systolic (mm Hg) 2011-04-20 06:01:00 Nirmal rial Jona Respitory Rate 2011-04-20 06:01:00 [facility] Weight 2011-04-20 02:25:00 [facility] Systolic (mm Hg) 2011-04-20 02:25:00 Nirmal rial [facility] Temperature Oral (F) 2011-04-20 02:25:00 98.0 F [facility] Respitory Rate 2011-04-20 02:25:00 [facility] Heart Rate 2011-04-20 02:25:00 [facility] Diastolic (mm Hg) 2011-04-20 02:25:00 [facility] o[facility] Jona Temperature Oral (F) 2011-03-26 06:05:00 98.0 F [facility] Respitory Rate 2011-03-26 06:05:00 [facility] Heart Rate 2011-03-26 06:05:00 [facility] Systolic (mm Hg) 2011-03-26 06:05:00 Nirmal rial Jona Diastolic (mm Hg) 2011-03-26 06:05:00 [facility]ona Height 2011-03-26 01:58:00 160.02 cm [facility] Weight 2011-03-26 01:58:00 [facility] Temperature Oral (F) 2011-03-26 01:58:00 99.0 F [facility] Diastolic (mm Hg) 2011-03-26 01:58:00 [facility] Systolic (mm Hg) 2011-03-26 01:58:00 Nirmal rial Jona Respitory Rate 2011-03-26 01:58:00 [facility] Heart Rate 2011-03-26 01:58:00 [facility] Diastolic (mm Hg) 2011-02-11 15:37:00 [facility] o[facility] Jona Respitory Rate 2011-02-11 15:37:00 [facility] Systolic (mm Hg) 2011-02-11 15:37:00 Nirmal rial [facility] Heart Rate 2011-02-11 15:37:00 [facility] Temperature Oral (F) 2011-02-11 15:37:00 98.1 F [facility] Diastolic (mm Hg) 2011-02-11 11:53:00 [facility] Jona Systolic (mm Hg) 2011-02-11 11:53:00 Nirmal rial [facility]sg[facility] Temperature Oral (F) 2011-02-11 11:53:00 97.5 F [facility] Heart Rate 2011-02-11 11:53:00 [facility] Respitory Rate 2011-02-11 11:53:00 [facility]ona Height 2011-02-11 07:38:00 162.56 cm [facility] Weight 2011-02-11 07:38:00 [facility] Respitory Rate 2011-02-11 07:38:00 [facility] Jona Temperature Oral (F) 2011-02-11 07:38:00 98.0 F [facility] Heart Rate 2011-02-11 07:38:00 [facility] Systolic (mm Hg) 2011-02-11 07:38:00 Nirmal rial Jona Diastolic (mm Hg) 2011-02-11 07:38:00 [facility] Weight 2011-02-11 02:32:00 [facility] Height 2011-02-11 02:32:00 162.56 cm [facility] Diastolic (mm Hg) 2011-01-15 16:44:00 [facility] o[facility] Jona Systolic (mm Hg) 2011-01-15 16:44:00 Nirmal rial Jona Temperature Oral (F) 2011-01-15 16:44:00 97.0 F [facility] Heart Rate 2011-01-15 16:44:00 [facility] Respitory Rate 2011-01-15 16:44:00 [facility] Temperature Oral (F) 2011-01-15 12:18:00 97.2 F [facility] Respitory Rate 2011-01-15 12:18:00 [facility] Heart Rate 2011-01-15 12:18:00 [facility] Diastolic (mm Hg) 2011-01-15 12:18:00 [facility] Systolic (mm Hg) 2011-01-15 12:18:00 Nirmal rial Jona Respitory Rate 2011-01-15 09:30:00 [facility]ona Systolic (mm Hg) 2011-01-15 09:30:00 Nirmal rial Jona Heart Rate 2011-01-15 09:30:00 [facility] Temperature Oral (F) 2011-01-15 09:30:00 97.9 F [facility] Diastolic (mm Hg) 2011-01-15 09:30:00 [facility] Height 2011-01-15 01:35:00 162.56 cm [facility] Weight 2011-01-15 01:35:00 [facility] Height 2011-01-14 20:07:00 162.56 cm [facility] Weight 2011-01-14 20:07:00 [facility] Systolic (mm Hg) 2010-12-22 18:51:00 Nirmal rial Jona Diastolic (mm Hg) 2010-12-22 18:51:00 [facility] Peripheral Pulse Rate 2010-12-22 18:51:00 [facility] Respitory Rate 2010-12-22 18:51:00 [facility] Jona Height 2010-12-22 16:57:00 162.56 cm [facility] Weight 2010-12-22 16:57:00 [facility] Temperature Oral (F) 2010-12-22 16:57:00 98.2 F [facility] Respitory Rate 2010-12-22 16:57:00 [facility] Jona Peripheral Pulse Rate 2010-12-22 16:57:00 [facility] Diastolic (mm Hg) 2010-12-22 16:57:00 [facility] o[facility] Jona Systolic (mm Hg) 2010-12-22 16:57:00 Nirmal rial [facility] Procedures Procedure Date / Time Performed Performing Clinician Maegan e Appendectomy [facility] Cholecystectomy [facility] Partial hysterectomy [facility] Encounters Start End Encounter Admission Attending Care Care Encounter Source Date/Time Date/Time Type Type Clinicians Facility Department ID 2018-11-26 2018-11-26 Emergency [facility] [id number] 11:32:46 15:11:00 Edgard Medley [id number] [place] [id number] [place] [id number] 2018-11-26 2018-11-26 Orders Doctor RASHID [id number] 00:00:00 00:00:00 Only Unassigned, [place] [id number] [place] [facility] [id number] 2017-02-25 2017-02-26 Outpatient Quezada, 2.16.840. 2.16.840.1. 4 [id number] 18:38:00 00:55:00 Rudolph [id number] 03 Mateo [id number] 5.120 2017-02-24 2017-02-25 Outpatient Quezada, 2.16.840. 2.16.840.1. 4 [id number] 22:49:00 01:35:00 Rudolph [id number] 02 Mateo [id number] 5.120 2017-01-24 2017-01-26 Outpatient Kayla, 2.16.840. 2.16.840.1 . [id number] 20:53:00 14:35:00 Greg Mack [id number] 5.120 2016-12-26 2016-12-27 Outpatient Ryan, 2.16.840. 2.16.840.1. 4 [id number] 23:03:00 01:05:00 Moise Rojas [id number] 3.615.120 5.120 Results Test Description Test Time Test Comments Results Result Comments Source POCT-GLUCOSE METER 2017-10-07 11:53:00 Test Item Value Reference Range Interpretation Comme nts POC-GLUCOSE METER ([facility]) (test 277 mg/dL 70-110 H TESTED AT [address] POINT code = 1538) [facility] [address] POCT-GLUCOSE [id number] 11:53:00 Test Item Value Reference Range Interpretation Comments POC-GLUCOSE METER 411 mg/dL 70-110 HH TESTED AT [address] ([facility]) (test code [facility] = 1538) [address] RAD, SPINE, CERVICAL, 2 OR 3 [id number] 23:46:00Reason for exam:->neck painFINAL REPORT RAD, SPINE, [...] Grayson Verified Date/Time: 10/06/2017 23:46:30 Reading Location: [address] Transitional Reading Room CT, SPINE, CERVICAL, [...] Grayson Verified Date/Time: 10/06/2017 23:44:40 Reading Location: [facility] C013 Transitional Reading Room CT, BRAIN, WITHOUT CONTRAST [...] MDReport Verified Date/Time: 10/06/2017 23:24:44 Reading Location: [address] Reading Room TROPONIN I 2017-10-06 22:56:00 [...] acute neurological disease, and persistent tachyarrhythmia.COMPREHENSIVE METABOLIC [id number] 22:50:00 Test Item Value Reference Range Interpretation Comments TOTAL PROTEIN 8.5 gm/dL 6.0-8.5 (BEAKER) (test code = 770) ALBUMIN (BEAKER) 4.3 [...] S NOT APPLICABLE FOR DIALYSIS PATIEN TS. [id number] 22:42:00 Test Item Value Reference Range Interpretation Comments AMYLASE (BEAKER) (test code = 349) 58 U/L 30-110 CBC W/PLT COUNT & AUTO [id number] 22:22:00 Test Item Value Reference Range Interpretation [...] 0.00-0.20 (test code = 417) URINALYSIS W/ [id number] 22:09:00 Test Item Value Reference Range Interpretation [...] 1663) SOURCE(BEAKER) (test code = 2795) POCT-GLUCOSE [id number] 07:19:00 Test Item Value Reference Range Interpretation Comments POC-GLUCOSE METER 241 mg/dL 70-110 H TESTED AT [address] (BEAKER) (test code [address] [address] [facility] [place] = 1538) [address] CT, [id number] 19:16:00FINAL REPORT CT OF THE ABDOMEN AND [...] MDReport Verified Date/Time: 09/22/2017 19:16:29 Reading Location: [facility] C013W Consult Reading Room BASI METABOLIC [id number] 17:37:00 Test Item Value Reference Range Interpretation [...] NOT APPLICABLE FOR DIALYSIS PATIEN TS. TROPONIN [id number] 17:07:00 Test Item Value Reference Range Interpretation [...] (test code = 749) 26 U/L 6-51 [id number] 16:51:00 Test Item Value Reference Range Interpretation Comments AMYLASE (BEAKER) (test 32 U/L 30-110 Speci men markedly code = 349) hemolyzed URINALYSIS W/ [id number] 16:21:00 Test Item Value Reference Range Interpretation [...] = 2795) CBC W/PLT COUNT & AUTO [id number] 16:15:00 Test Item Value Reference Range Interpretation [...] L 0.00-0.20 (test code = 417) POCT-GLUCOSE [id number] 15:36:00 Test Item Value Reference Range Interpretation Comments POC-GLUCOSE METER 284 mg/dL 70-110 H TESTED AT [address] ([facility]) (test code [address] [facility] [place] = 1538) [address] CT, [id number] 15:32:00Reason for exam:->LLQ ABD PAINIs the patient [...] since prior examination dated 07/09/2016. Signed: Gama Hammondseport Verified Date/Time: 07/07/2017 15:32:20 Reading Location: [facility] C013Y CT Body Reading Room LIPASE 2017-07-07 14:41:00 Test Item Value Reference Range Interpretation Comments LIPASE (BEAKER) (test code = 749) 32 U/L 6-51 COMPREHENSIVE METABOLIC [id number] 14:40:00 Test Item Value Reference Range Interpretation [...] NOT APPLICABLE FOR DIALYSIS PATIEN TS. POCT-GLUCOSE [id number] 14:10:00 Test Item Value Reference Range Interpretation Comments POC-GLUCOSE METER 352 mg/dL 70-110 H TESTED AT [address] (BEAKER) (test code [address] [facility] [place] = 1538) [address] CBC W/PLT COUNT & AUTO [id number] 13:30:00 Test Item Value Reference Range Interpretation [...] 0.00-0.20 (test code = 417) URINALYSIS W/ [id number] 13:01:00 Test Item Value Reference Range Interpretation [...] 1663) SOURCE(BEAKER) (test code = 2795) KETONE, [id number] 12:58:00 Test Item Value Reference Range Interpretation Comments KETONES, BLOOD (BEAKER) (test code 0.1 mmol/L <0.4 = 1103) BLOOD GAS, [id number] 12:48:00 Test Item Value Reference Range Interpretation [...] (test code = 1819) 37.0 % POCT-GLUCOSE [id number] 12:04:00 Test Item Value Reference Range Interpretation Comments POC-GLUCOSE METER > mg/dL 70-110 HH OUTSIDE ME ASURING (BEAKER) (test [facility] = 1538) [facility] [address] BACTERIAL - [id number] 03:02:00Negative (02/25/17 9:02 PM)[facility] [id number] 03:02:00 Test Item Value Reference Range Interpretation Comments Tube Num CSF (test code = Tube Num CSF) 1 1 [facility] [id number] 03:02:00Clear (02/25/17 9:02 PM)[facility] [id number] 03:02:00Colorless (02/25/17 9:02 PM)[facility] [id number] 03:02:00Colorless (02/25/17 9:02 PM)[facility] [id number] 03:02:002[facility] [id number] 03:02:001[facility] [id number] 03:02:001[facility] [id number] 03:02:002[facility] [id number] 03:02:00 Colorless (02/25/17 9:02 PM)[facility] [id number] 03:02:00Clear (02/25/17 9:02 PM)[facility] [id number] 03:02:00 Test Item Value Reference Range Interpretation Comments Tube Num CSF (test code = Tube Num CSF) 4 1 [facility] [id number] 03:02:00Colorless (02/25/17 9:02 PM) [facility] [id number] 03:02:66927Toqufewr HermannBODY FLUIDS 2017-02-26 03:02:0055[facility]annFUNGAL - [id number] 03:02:00 Negative (02/25/17 9:02 PM)[facility] PenkjvqJELSTRAPPX5679-31-02 03:02:00Non Reactive (02/25/17 9:02 PM)[facility]annMOLECULAR [id number] 03:02:00Negative 2(02/25/17 9:02 PM)[facility]ann[facility]LECULAR DIAGNOSTIC 2017-02-26 03:02:00Negative 1(02/25/17 9:02 PM)[facility]annVIRAL - SEROLOGY 2017-02-26 03:02:00Negative (02/25/17 9:02 PM)[facility]annCHEM PANEL 2017-02-26 01:42:000.9[facility]annCHEM [id number] 01:42:0023[facility]annCHEM [id number] 01:42:004.3[facility]annCHEM [id number] 01:42:0011.3[facility]annCHEM [id number] 01:42:32586Rqwqewbu HermannCHEM [id number] 01:42:000.3[facility]annCHEM [id number] 01:42:0016 [facility]annCHE[facility] [id number] 01:42:0017[facility]annCHEM PANEL 2017-02-26 01:42:008.2[facility]annCHEM [id number] 01:42:004.3[facility]annCHEM [id number] 01:42:01971Abzzqqyi HermannCHEM [id number] 01:42:000.70[facility]annCHEM TIUOI2813-78-25 01:42:70723Bexvvymu HermannCHEM RNOIJ2903-89-97 01:42:008.9[facility]annCHEM [id number] 01:42:0097 [facility]annCHE[facility] [id number] 01:42:0026[facility]annCHEM PANEL 2017-02-26 01:42:87691Zfzrwdps HermannCHEM [id number] 01:42:0016[facility]annCHEM [id number] 01:42:003.9[facility]annCHEM [id number] 01:42:001.8[facility] AnmdqctRXYAWUMKUL0033-12-42 01:42:76262Qsuowdut Jona BWLTUKQDPV3533-81-25 01:42:0082.2[facility] GieuxrfNMMRHBWNSX7780-38-53 01:42:00 37.1[facility] PoccamgLPMJUMGPJH1894-86-34 01:42:007.4[facility] HermannHEMATOLOGY 2017-02-26 01:42:0014.1[facility] [id number] 01:42:00 Test Item Value Reference Range Interpretation Comments MCH (test code = MCH) 27.6 pg 27.0-31.0 [facility] InlbziaGSLUIDRWLV8834-32-52 01:42:0033.6[facility] HermannHEMATOLOGY 2017-02-26 01:42:004.52[facility] OxbbkvoAAVTKMTZVY2309-92-01 01:42:0012.5[facility] UnemkrrGQWEWCCVPM0621-28-63 01:42:007.1[facility] QeibpmaKRGLLDVAFA2549-22-60 01:42:000.8[facility] SkxssdrEIEMDFTCLW3380-30-04 01:42:002.8[facility] ZTGADXVMTX4983-89-67 01:42:003.8[facility] CyqkdjmDSDIVNTRRK2632-03-04 01:42:000.4 [facility] UsrshgoUMNPMBCICL8239-54-47 01:42:0053.4[facility] HermannHEMATOLOGY 2017-02-26 01:42:0039.1[facility] WxfparvZWWYZBKANQ8794-04-82 01:42:001.4[facility] XklupsoLZPMUQCXTW9431-28-69 01:42:005.3[facility] HldcweaZSXRDDZHRX1932-57-22 01:42:000.1[facility] HoszuxtBZKTGHXXRQ1669-24-38 01:42:000.1[facility] HermannURINE AND [id number] 01:42:000.2[facility]annUR[facility] AND [id number] 01:42:00Negative (02/25/17 7:42 PM)[facility] AND [id number] 01:42:00Negative *NA*(02/25/17 7:42 PM)[facility] AND [id number] 01:42:00Negative *NA*(02/25/17 7:42 PM)[facility] [id number] 01:42:00Negative (02/25/17 7:42 PM)[facility] AND [id number] 01:42:00Negative (02/25/17 7:42 PM)[facility] AND [id number] 01:42:00Negative (02/25/17 7:42 PM)[facility] AND [id number] 01:42:00 Test Item Value Reference Range Interpretation Comments UA pH (test code = UA pH) 6.0 1 5.0-8.0 [facility] AND [id number] 01:42:00 Test Item Value Reference Range Interpretation Comments UA Spec Grav (test code = UA Spec 1.010 1 Grav) [facility] [id number] 01:42:00Yellow *NA*(02/25/17 7:42 PM) [facility] AND [id number] 01:42:00Slight Cloudy (02/25/17 7:42 PM)[facility] HermannVIRAL - [id number] 01:42:00Negative (02/25/17 7:42 PM)[facility]annVIRAL - [id number] 01:42:00Negative (02/25/17 7:42 PM)[facility]annCHEM [id number] 09:02:64778Yqtkopki HermannCHEM PANEL 2017-01-26 09:02:000.2[facility] HermannCHEM MFQMS2332-10-17 09:02:28329Wagmqbsw HermannCHEM [id number] 09:02:0012[facility] HermannCHEM [id number] 09:02:003.3[facility] HermannCHEM PNEKI5342-61-09 09:02:002.4[facility] HermannCHEM GHRNC2930-28-47 09:02:005.7[facility] HermannCHEM YJLBN0450-65-77 09:02:009.7 [facility]annCHEM JZIEP1754-89-25 09:02:92517Eifexyyp HermannCHEM PANEL 2017-01-26 09:02:007.4[facility] HermannCHEM ODGHB4554-98-23 09:02:000.7[facility] HermannCHEM ZIUMR4294-70-78 09:02:000.40[facility]annCHEM BQGQB7790-67-16 09:02:005[facility]annCHEM BNXWP8408-32-32 09:02:0037[facility]annCHEM QZLEQ2737-17-90 09:02:0044[facility]annCHEM OQEGG3443-45-28 09:02:003.7 [facility]CHE[facility] DSQZD8823-65-27 09:02:95556Jptsnkvs HermannCHEM PANEL 2017-01-26 09:02:0025[facility]annCHEM JQDYL4441-24-99 09:02:43472Bpxpjphw HermannCARDIAC RQCHWQD8611-56-29 22:26:00<0.02[facility] HermannPARATHYROID JRUKBYT3305-82-45 22:26:000.99[facility] HermannPARATHYROID YOBGSGO1985-05-47 22:26:001.01[facility]annCHEM ZFYAN9124-94-44 20:00:002.6[facility]annCHEM QTMRG0332-94-31 20:00:48671Iaaeavwj HermannCHEM JUMZJ7586-50-24 20:00:000.50 [facility]CHE[facility] GQDZO6776-79-94 20:00:20575Gytfwkbb HermannCHEM PANEL 2017-01-25 20:00:003.6[facility]annCHEM MZZQD6631-22-58 20:00:0025[facility]annCHEM FAUVF9874-71-29 20:00:21498Ixgrsvjk HermannCHEM PDPUN0291-03-50 20:00:008.6[facility]annCHEM YSZYV8128-74-28 20:00:006.9[facility]annCHEM DNHVX1021-70-83 20:00:13623Ipsuvcfu HermannCHEM LIQXL3249-00-07 20:00:008 [facility]CHE[facility] HRQKQ2406-34-58 08:54:002.7[facility]annCHEM PANEL 2017-01-25 08:54:55218Flqjizko HermannCHEM FLVZI2201-42-81 08:54:000.60[facility]annCHEM VZZES1215-57-10 08:54:009[facility]annCHEM JHSGF4222-98-21 08:54:15571Xnqkxhei HermannCHEM XJESF8841-59-72 08:54:0012.5[facility]annCHEM RDILH0747-16-85 08:54:003.5[facility]annCHEM JZELX5264-29-11 08:54:32939 [facility]annCHE[facility] EXOHN2674-82-36 08:54:0023[facility]annCHEM PANEL 2017-01-25 08:54:007.1[facility]annCHEM BCUWZ8026-51-84 08:54:33081Vfotvans HermannCHEM YQNXR2513-97-50 08:54:001.7[facility] WurpwynCOURFZHSPH9310-87-81 08:54:007.4[facility] YameggwTRDBPCKGAT5293-78-88 08:54:0013.6[facility] BALSATSPZD6737-95-60 08:54:13081Xacvauak SfrdrauDXCGBYHUGY0363-82-13 08:54:00 33.4[facility] FdmhjhjSCYKTLIQRY4557-31-67 08:54:0082.5[facility] HermannHEMATOLOGY 2017-01-25 08:54:00 Test Item Value Reference Range Interpretation Comments MCH (test code = MCH) 27.6 pg 27.0-31.0 [facility] YeugahaDAJDWVAMXJ4083-31-73 08:54:0010.7[facility] HermannHEMATOLOGY 2017-01-25 08:54:0032.0[facility] JhydwprGGCIJGVNUC0039-96-93 08:54:005.5[facility] YwkeautKKQRTWMRXO7453-59-95 08:54:003.88[facility] EaxubwxRCGSUCKOQX6026-82-37 08:54:007.2[facility] DjcunsdLVTGVDCFTB3203-40-81 08:54:000.4[facility] OJTJBDQJVK0981-63-85 08:54:003.0[facility] HljzljnRIDZTYUHRG3456-75-90 08:54:002.0 [facility] JdciblbOWEEIHYPDM7002-91-98 08:54:000.9[facility]annHEMATOLOGY 2017-01-25 08:54:000.6[facility] LmhplfdMZAZOOEUTS3683-22-82 08:54:0036.3[facility] XsnuctmRISREILELR5293-01-11 08:54:0055.0[facility]annURINE AND STOOL 2017-01-25 04:54:00Negative (01/24/17 11:54 PM)[facility] STOOL 2017-01-25 04:54:00Positive *ABN*(01/24/17 11:54 PM)[facility] PHXEE0186-19-57 04:54:00Negative (01/24/17 11:54 PM)[facility] FJRRW3682-46-21 04:54:00Negative *NA*(01/24/17 11:54 PM)[facility] NMUUG2987-75-05 04:54:00Negative (01/24/17 11:54 PM)[facility] LEZTE5141-62-62 04:54:000.2[facility] AND HVQPF5460-34-31 04:54:00Negative *NA*(01/24/17 11:54 PM)[facility] 2017-01-25 04:54:00 Test Item Value Reference Range Interpretation Comments UA pH (test code = UA pH) 5.5 1 5.0-8.0 [facility] MSYQI0080-59-12 04:54:00<=1.005 *NA*(01/24/17 11:54 PM)[facility] VKCDC3148-58-51 04:54:00Yellow *NA*(01/24/17 11:54 PM)[facility] UDKYH5417-76-34 04:54:00Clear (01/24/17 11:54 PM) [facility]CARDIAC LEYHACI0498-37-82 02:44:0062[facility]AC DISQLGN6872-76-94 02:44:00<1.0[facility]annCARDIAC WSUNJOY2964-57-60 02:44:00<0.02[facility]annCARD[facility]AC APGVEFN1869-25-66 02:44:00<1.6 [facility]annCHEM TZIQP9997-99-91 02:44:0014[facility]annCHEM PANEL 2017-01-25 02:44:000.5[facility]annCHEM NLENI6239-74-47 02:44:0037[facility]annCHEM GRMUP6503-25-61 02:44:50059Wkoomlpw HermannCHEM LTJMD0194-82-10 02:44:000.7[facility]annCHEM QKRJR6730-76-78 02:44:004.7[facility]annCHEM RRIHK0466-61-19 02:44:003.5[facility]annCHEM JSJVD7928-82-68 02:44:0016 [facility]annCHE[facility] JNWXC9601-39-84 02:44:008.2[facility]annCHEM PANEL 2017-01-25 02:44:13463Hntbsnnp ElohiupKEEHAQALBM3865-10-29 02:44:0013.7[facility] DplnbdqWADIRJHLTC6468-51-50 02:44:0041.6[facility] EtmxxywMVDHRATGWB1560-85-37 02:44:0083.6[facility] MsvstbzQVLFIESFZP7166-06-74 02:44:00 Test Item Value Reference Range Interpretation Comments MCH (test code = MCH) 27.5 pg 27.0-31.0 [facility] QpxwydvJXDCPTJOXL5665-75-25 02:44:0032.9[facility]annHEMATOLOGY 2017-01-25 02:44:0013.6[facility] FwhmskwDODGXVJUHC9913-34-22 02:44:27119Plbdlvwj VspuautDHMXNTDNNA1983-65-23 02:44:008.1[facility] OvotadiRQAMHAVYPJ1456-74-60 02:44:005.8[facility] NjshdbrTGBNZIAOXP1391-84-18 02:44:004.97[facility] JFGBVQOKIA3608-19-98 02:44:000.4[facility] BylrwakNOQISSYFCB6869-22-62 02:44:000.7 [facility] RegaqslSZAQHXJEHM9052-52-42 02:44:003.5[facility]annHEMATOLOGY 2017-01-25 02:44:007.1[facility] SklrbemOUFZNFNWFV0886-54-02 02:44:000.6[facility] PdgdwzrMOHUAHJICS5680-05-50 02:44:001.8[facility] IahcgtqJRTKDYUITJ5249-12-29 02:44:0059.9[facility] AlbjkfuYJIROGVYHG9699-88-58 02:44:0031.7[facility] URINE WYSJQOE1144-16-57 09:22:00 Test Item Value Reference Range Interpretation [...] S Sulfamethoxazole (test code = 47) POCT-GLUCOSE KEXYR4259-99-98 23:15:00 Test Item Value Reference Range Interpretation Comments POC-GLUCOSE METER 227 mg/dL 70-110 H TESTED AT [facility] [address] (BEAKER) (test code [address] [facility] [place] = 1531) [address] URINALYSIS W/ LUWMIXICJRP3509-91-29 22:36:00 Test Item Value Reference Range Interpretation [...] 1663) SOURCE(BEAKER) (test code = 2795) KETONE, [id number] 22:32:00 Test Item Value Reference Range Interpretation Comments KETONES, BLOOD (BEAKER) (test code 0.6 mmol/L <0.4 H = 1103) BLOOD GAS, [id number] 22:30:00 Test Item Value Reference Range Interpretation [...] (test code = 1819) 21.0 % SCREEN, [id number] 22:29:00 Test Item Value Reference Range Interpretation Comments TEST URINE (BEAKER) (test Negative code = 583) TROPONIN [id number] 21:42:00 Test Item Value Reference Range Interpretation [...] CK-MB Reference Range:<5 Normal5-10 Borderline>10 AbnormalCOMPREHENSIVE METABOLIC RHEGB4888-01-56 21:34:00 Test Item Value Reference Range Interpretation [...] S NOT APPLICABLE FOR DIALYSIS PATIEN TS. [id number] 21:32:00 Test Item Value Reference Range Interpretation Comments LIPASE (BEAKER) (test code = 749) 28 U/L 6-51 CBC W/PLT COUNT & AUTO NWWIPQHFTUUE6884-52-43 20:55:00 Test Item Value Reference Range Interpretation [...] L 0.00-0.20 (test code = 417) POCT-GLUCOSE MCJBJ1816-48-72 20:56:00 Test Item Value Reference Range Interpretation Comments POC-GLUCOSE METER 446 mg/dL 70-110 Notified R Diana DALTON/TESTED AT (BEAKER) (test code [address] = [address]) [address] [facility] [address] BEDSIDE GLUCOSE HELBBGF2658-82-53 15:13:64604Jzmhtjbe HermannBEDSIDE GLUCOSE WTWIHOB4162-90-45 04:18:98020Uxxvbigm BqjptgdMZHLYQWWX2047-69-57 03:05:000.14 [facility] KddtmrlACKGUXDIN9820-14-19 03:05:008[facility] TfvdhyvPSRQXCZMX6370-03-19 03:05:000.2[facility] DygiiarHVVIDQVBN0805-26-44 03:05:0027[facility] BSAXHUYYU0275-53-72 03:05:0013.2[facility] LsbyulzIUBOHLEND0433-27-70 03:05:008.8 [facility] LaldhtyDRMVUSDOU5344-36-19 03:05:007.6[facility] HermannCHEMISTRY 2011-11-29 03:05:0016[facility] CpgaiilWWDTOEIQB0836-88-70 03:05:003.8[facility] ScranveISHVGRLAS7785-73-22 03:05:003.8[facility] YynjvjfWKHAVPHJB1300-78-12 03:05:001.0[facility] SkubkscOUSISFBNL0742-47-79 03:05:46635Zvtrshxz [facility] FAGMPWMVX9574-51-73 03:05:0013[facility] SkcpsnyNABVFPGVA3756-09-94 03:05:89020 [facility] ZpqmekvATPQVZQPQ1089-88-69 03:05:0098[facility]annCHEMISTRY 2011-11-29 03:05:000.7[facility] LanfnigSMYEXRIWH1183-87-36 03:05:0011[facility] OzufylgROQWVQMWS3778-72-68 03:05:004.emorial GniidfsFAMRMWEFM0927-92-69 03:05:53548Ubmswxdg RhqavuxLPUMZZUTZA5245-72-95 03:05:004.41[facility] WAYAOVKIMJ5778-76-60 03:05:005.7[facility] BbuwadmNLXCLEALYI9756-14-57 03:05:00 33.2[facility] XrzvoakNVLWSUXXDB7516-91-16 03:05:0012.9[facility] HermannHEMATOLOGY 2011-11-29 03:05:0013.8[facility] GbzcgoaSIDPAQRDVJ3927-51-26 03:05:0088.4[facility] BddjisiIKIKRZUKBL4998-97-54 03:05:00 Test Item Value Reference Range Interpretation Comments MCH (test code = MCH) 29.3 pg 27.0-31.0 N [facility] AgddqboCPJRRJADKI1423-88-89 03:05:0038.9[facility]annHEMATOLOGY 2011-11-29 03:05:007.5[facility] RmodhnxRZAEXEGDJG8961-21-09 03:05:14540Ujbljapq JynegdsYFJZFXFSXU7053-22-04 03:05:0057.5[facility] ByjwkufLTETVZWVXI4803-29-88 03:05:000.5[facility] WobwslvPZXLCCTEJE0740-11-64 03:05:001.5[facility] PUHEBJGREN7973-95-86 03:05:005.3[facility] PsmdlmlGCKJRZCLUX5308-08-78 03:05:00 35.2[facility] KwimvjjQPNTKWUFHW1358-02-12 03:05:002.0[facility]annHEMATOLOGY 2011-11-29 03:05:003.3[facility] EjofahpHPTWICQOEN9783-23-25 03:05:000.1[facility] ExzynjpOWMSEOBHIZ4994-34-36 03:05:000.3[facility] JoyjrzxSGEEKQUUYL0232-11-05 03:05:000.0[facility] NrgvbaeTSRASWFZBC4346-60-36 03:05:00 Test Item Value Reference Range Interpretation Comments UA Spec Grav (test code = UA Spec 1.010 1 N Grav) [facility] VtunhxsFRJZRNIWXQ6952-23-13 03:05:00 Test Item Value Reference Range Interpretation Comments UA pH (test code = UA pH) 5.5 1 5.0-8.0 N [facility] BpfaimbMMDHQWQYIN4738-31-11 03:05:00Yellow *NA*(11/28/2011 22:05:00) [facility] GsbtszuVRYDGIIJUO4756-48-57 03:05:00Clear (11/28/2011 22:05:00)[facility] JhktigyGFMPRAKCNG8067-15-61 03:05:00Negative (11/28/2011 22:05:00)[facility] ChrvnwkFQBSSTWLLC2375-40-30 03:05:00Negative (11/28/2011 22:05:00)[facility] CfjfbltPTDLYCCPAX6027-04-12 03:05:000.2[facility] PhlfxlaENSJJXCTRN7767-84-80 03:05:00>=1000 mg/dL *ABN*(11/28/2011 22:05:00)[facility] HermannURINALYSIS 2011-11-29 03:05:00Negative mg/dL *NA*(11/28/2011 22:05:00)[facility] FRZLKZYZJN7604-39-89 03:05:00Negative mg/dL (11/28/2011 22:05:00)[facility] VeadjzoWOMXXUOKTB3320-48-57 03:05:00Negative (11/28/2011 22:05:00)[facility] OfbcuckWNDIKQYDZE9043-12-25 03:05:00Negative *NA*(11/28/2011 22:05:00)[facility] AllenOjgetfgCKMQZMEYFS6647-66-19 03:05:00Rare /LPF (11/28/2011 22:05:00)[facility] AllenOfcyzrsWDSMDOXDGO1349-35-22 03:05:00Occasional /HPF (11/28/2011 22:05:00) [facility] AllenNpmhpokWTFAJAFCYX3639-97-22 03:05:000-2 /HPF (11/28/2011 22:05:00) [facility] UxwcjipCMKZKAFMBD4356-36-47 03:05:000-2 /HPF (11/28/2011 22:05:00) [facility] JwalvuvYOTHIQKBEN6493-02-54 03:05:00Performed (11/28/2011 22:05:00) [facility] HPTGZBN5900-82-29 02:45:00>400[facility]annBEDSIDE GLUCOSE WHKJUIR2399-70-15 06:10:26846Sbqfnppp HermannBEDSIDE GLUCOSE ZMUFBQA1159-19-83 05:04:0094[facility] IwfpafiGPPNMXMMF5350-87-75 03:06:00 72[facility] AnrebrfEHRBKNRLS3224-32-73 03:06:0040[facility]annCHEMISTRY 2011-10-25 03:06:007.42[facility] OrymvhvPSRVUZZHA1207-47-08 03:06:000.0[facility] GixcvxuAHNGHGDTK0541-45-61 03:06:00Rm Air (10/24/2011 22:06:00)[facility] PHMIYCLAL6895-35-07 03:06:0095.0[facility] RngekywSAVEJYNXF9396-21-46 03:06:001 [facility] RgcfglzQFUOGPZQN8776-50-36 03:06:0026[facility]annCHEMISTRY 2011-10-25 03:05:44719Xpsjcsut KqlvztxIFVMNHCGO7432-15-34 03:05:89375Ytjfsuky UhcczszWTREVHBFJ1354-01-16 03:05:0019[facility] IsljlseAYSXMRERW6713-80-96 03:05:008.4[facility] UswmnqqUCXEHGMWH1526-61-22 03:05:91252Ysuwxaud Jona AGWBIZSAO1861-65-20 03:05:64549Dnnvtumt QmeeljzFLGDBAXJT0631-50-81 03:05:003.8 [facility] XpjtmxcRJDPRQVMP2773-15-21 03:05:003.7[facility] HermannCHEMISTRY 2011-10-25 03:05:0027[facility] BdycegcQWBTCKBYF2248-45-75 03:05:0012.2[facility] CvybnbmDMOZFRHIU4515-93-60 03:05:004.2[facility] BcjoqtpFZPIDRJUG6145-58-44 03:05:000.8[facility] RrusfkaRKSSLQUMZ7757-88-74 03:05:93331Fsvryrzs [facility] UIBYKMHSJ1108-73-57 03:05:0024[facility] RojnhmeVHFUBQGHJ6129-89-11 03:05:007.5 [facility] NmrdlhxYGSGVXYUF0106-19-83 03:05:0010[facility]annCHEMISTRY 2011-10-25 03:05:88546Mvggbfan MxumzklALDASNFBA3163-63-21 03:05:000.3[facility] IdgnldyJTMWADIET6517-85-55 03:05:001.0[facility] FhdemosYHIWJHJJB8404-45-88 03:05:0017[facility] XcwnzjjAVDSBIBMH0694-32-46 03:05:000.22[facility] RNHNJCQEQR6640-58-80 03:05:000.1[facility] XoykcozAEUXSIWWIL8434-71-90 03:05:002.0 [facility] PhbctvnJBWVMLXZMC4473-18-54 03:05:000.0[facility]annHEMATOLOGY 2011-10-25 03:05:000.4[facility] PvdqmruBFRDKTBTOA5329-07-95 03:05:0029.4[facility] MgblwscTAZRWTTDIF7954-40-93 03:05:004.3[facility] MpiilvnSAWXSZEDDO8635-22-83 03:05:005.7[facility] NretuwtBWRKKVEKCM7440-42-08 03:05:000.4[facility] SYGVDVJKXK2902-27-01 03:05:001.2[facility] ZvhhzmjFQQJLOBRPV4854-65-00 03:05:00 63.3[facility] GajftccAGIXSZVHUG6593-87-87 03:05:0014.0[facility]annHEMATOLOGY 2011-10-25 03:05:80281Wfhhbeqi KpxebruFCWBDSXRHO1099-27-68 03:05:008.0[facility] QmprkewPOXUCLVCTQ1682-25-47 03:05:0013.3[facility] BxsnnktEKLQGMXSFY8362-21-78 03:05:0039.4[facility] TxvhwskKBWAGDFIYU8205-08-45 03:05:0086.2[facility] XEHGOYNPKI0397-53-55 03:05:00 Test Item Value Reference Range Interpretation Comments MCH (test code = MCH) 29.1 pg 27.0-31.0 N [facility] DemkbhwOLYWDMMFIP9763-87-43 03:05:0033.8[facility]annHEMATOLOGY 2011-10-25 03:05:006.9[facility] QapvctgXPVYMOJFCU5495-91-24 03:05:004.57[facility] QjnzkjfCRIUNRXTPM7597-60-54 03:05:00Positive *ABN*(10/24/2011 22:05:00)[facility] KmozbczQQDQJWWSJD9386-14-85 03:05:00Negative (10/24/2011 22:05:00)[facility] BpuyyyeGCAFTLLJOQ3711-38-90 03:05:00Negative (10/24/2011 22:05:00)[facility] DzymemrIMMEZEWILR6070-30-69 03:05:00>=1000 mg/dL *ABN*(10/24/2011 22:05:00) [facility]mptdfkOCNPNBYQHE6880-93-92 03:05:00 Test Item Value Reference Range Interpretation Comments UA pH (test code = UA pH) 6.0 1 5.0-8.0 N [facility] AllenUcairalJIASUHYXFE2648-37-86 03:05:00 Test Item Value Reference Range Interpretation Comments UA Spec Grav (test code = UA Spec 1.015 1 N Grav) [facility] AllenUnyjsjuSTQJWQDMAP4030-74-10 03:05:00Yellow *NA*(10/24/2011 22:05:00) [facility] AllenQsgbzbxZWMFABPJOK5644-22-74 03:05:00Clear (10/24/2011 22:05:00)[facility] AllenGvmdwgcSOGOGQFADA3937-72-48 03:05:000.2[facility] HospitalVdfimyiCRUCCFITKL3503-32-04 03:05:00Negative *NA*(10/24/2011 22:05:00)[facility] AllenKbootrxCUMMRKGMFR5946-16-16 03:05:00Negative (10/24/2011 22:05:00)[facility] AllenUmxubsdFOJWNPLPKQ8941-93-88 03:05:00Negative *NA*(10/24/2011 22:05:00)[facility] AllenTvcdifuNPDAWOGDQP8873-04-04 03:05:00Rare /LPF (10/24/2011 22:05:00)[facility] AllenZaosdrbGYEVSGZZIG4639-45-49 03:05:00Moderate /HPF (10/24/2011 22:05:00)[facility] AllenPfatrtrNVDCSLPVJD0181-50-63 03:05:000-2 /HPF (10/24/2011 22:05:00)[facility] AllenNjodrrnMWKGSGFTYI6165-53-84 03:05:00Performed (10/24/2011 22:05:00)[facility] AllenBqeodvnIGLRKLWFFU1183-75-82 03:05:006-10 /HPF *ABN*(10/24/2011 22:05:00)[facility] AllenJmsoxvvQJUQOMNOGN1799-54-85 03:05:00Rare /LPF (10/24/2011 22:05:00)[facility]annBEDSIDE GLUCOSE TESTING 2011-10-25 02:43:00>400[facility]annBEDSIDE GLUCOSE YJXJSFU8852-21-56 08:15:29826Mlxrdgjf HermannBEDSIDE GLUCOSE EFCOLDU5243-84-98 07:07:00>400 [facility] JcvbdxtIYMJCQPUC2004-27-41 05:10:61212Hfvrnszk HermannCHEMISTRY 2011-05-23 05:10:000.8[facility] JoveomvEMINTLGDG5616-28-42 05:10:0026[facility] KxrahjiERWIWDGKR0531-94-82 05:10:0096[facility] CnawijrWBVITUVHI4440-60-64 05:10:003.9[facility] PwpqvulTJVESMBWO3177-48-74 05:10:0012.9[facility] BSPEVSGWY7560-27-57 05:10:004.0[facility] VfqdqwkDBLCPJFFG5381-31-04 05:10:007.8 [facility] ZzvyaovTORPJTULJ0737-01-34 05:10:0015[facility] HermannCHEMISTRY 2011-05-23 05:10:56623Fjcavgjc YqcdwniUACSIXEBD5640-27-08 05:10:001.1[facility] ImnlnvdFQONWWRUJ3179-30-89 05:10:003.8[facility] CpkizekSYJERHCXY3300-94-04 05:10:008.6[facility] AvwipliRKJNUMKHY0214-37-26 05:10:0011[facility] YCWGBYOIG6582-00-27 05:10:000.4[facility] QqdxjcfIQTDSNBZG4387-21-77 05:10:90985 [facility] ImcbhngDPJRNROPY1749-29-82 05:10:0015[facility] HermannCHEMISTRY 2011-05-23 05:10:50934Httdsula KbrgpqdRURTFUWLI2583-21-40 05:10:0012[facility] GlpeypdOKDIBBCWX2179-78-50 05:10:19343Wmwzfwse XcuevefMZVRVXBCD3175-68-23 05:10:000.36[facility] MxzufqzMPECNKCHAU9954-93-20 05:10:63726Jhrzbrbc Jona VJYFAEYNYC9705-73-73 05:10:0034.3[facility] BpdhjzcPIZMQUMQCS8749-46-26 05:10:00 7.9[facility] CnxqspjHVBBWDUPWF3532-49-33 05:10:0013.0[facility]annHEMATOLOGY 2011-05-23 05:10:00 Test Item Value Reference Range Interpretation Comments MCH (test code = MCH) 29.5 pg 27.0-31.0 N [facility] KcsrowyTHBLSFYOFH6238-63-58 05:10:0038.1[facility]annHEMATOLOGY 2011-05-23 05:10:0086.0[facility] MnnlaieXIKRVMUBDE4440-69-25 05:10:004.43[facility] JsvcvugQVSSBJSIZP7534-21-84 05:10:005.9[facility] SnsrbsuTGTELJXIVL4134-03-26 05:10:0014.0[facility] MthqwqaPEHREVXJJW2185-93-74 05:10:000.0[facility] TSTLTQRLVK8243-97-62 05:10:001.7[facility] HfhwbvuLWPEHUEEDL9876-51-01 05:10:000.3 [facility] OrslvbeYZBYVASVUY4409-10-51 05:10:000.6[facility]annHEMATOLOGY 2011-05-23 05:10:003.8[facility] OfwbuxnGGZNNOVNVA1393-10-01 05:10:000.1[facility] OebhjatZVDTONFJRK8163-23-08 05:10:004.7[facility] FdmltqxBMTWYNEBOV3394-15-57 05:10:0028.9[facility] JzjdrbxZSEKMWSPZJ0897-08-82 05:10:002.5[facility] CDYCWADJUQ0931-36-81 05:10:0063.3[facility] AxmvbquESTLOUKQYN8286-73-05 05:10:000- 2 /HPF (05/22/2011 23:10:00)[facility] ItiffonYWKMLFJWLF7949-74-60 05:10:00 Occasional /HPF (05/22/2011 23:10:00)[facility] QtaflrrRKWMUVRXRG3543-30-39 05:10:00Negative (05/22/2011 23:10:00)[facility] YqutewpQIGYPRIATT3264-18-49 05:10:00Negative *NA*(05/22/2011 23:10:00)[facility] VkwjvlyQSMEPZSWOS3739-59-96 05:10:00>=1000 mg/dL *ABN*(05/22/2011 23:10:00)[facility]annURINALYSIS 2011-05-23 05:10:00Negative (05/22/2011 23:10:00)[facility]annURINALYSIS 2011-05-23 05:10:00 Test Item Value Reference Range Interpretation Comments UA pH (test code = UA pH) 5.0 1 5.0-8.0 N [facility] HqwoxdmHJUMTXCAEY3119-11-16 05:10:003-5 /HPF (05/22/2011 23:10:00) [facility] AfgbmmoPLQVMZEDPU3417-47-46 05:10:00Rare /LPF (05/22/2011 23:10:00) [facility] ZgzsecrWTJRRMPJSN4239-41-48 05:10:000.2[facility] HermannURINALYSIS 2011-05-23 05:10:00Negative (05/22/2011 23:10:00)[facility]annURINALYSIS 2011-05-23 05:10:00Negative *NA*(05/22/2011 23:10:00)[facility]annURINALYSIS 2011-05-23 05:10:00Negative (05/22/2011 23:10:00)[facility]annURINALYSIS 2011-05-23 05:10:00Performed (05/22/2011 23:10:00)[facility]annURINALYSIS 2011-05-23 05:10:00Yellow *NA*(05/22/2011 23:10:00)[facility]annURINALYSIS 2011-05-23 05:10:00Clear (05/22/2011 23:10:00)[facility]annURINALYSIS 2011-05-08 00:16:00Negative (05/07/2011 18:16:00)[facility]annURINALYSIS 2011-05-08 00:16:000.2[facility] CwnjraaJGFKMQWVXY8612-21-91 00:16:00Negative *NA*(05/07/2011 18:16:00)[facility]PpdzmhmIBRNWRTEYD3935-14-10 00:16:00Large *ABN*(05/07/2011 18:16:00)[facility]gdlupeBPXXBWHTXD6973-34-72 00:16:006-10 /HPF *ABN*(05/07/2011 18:16:00)[facility] AllenUfqdlftEUTTFNTFTU4358-05-59 00:16:00 Occasional /HPF (05/07/2011 18:16:00)[facility] AllenIvodcuiQVXQFWLWKY8640-11-33 00:16:00Performed (05/07/2011 18:16:00)[facility] AllenIllugavNMDCYFJNRV5692-48-17 00:16:00Few /LPF (05/07/2011 18:16:00)[facility] HospitalPnplzmiHQPPHBGOEC7876-47-32 00:16:00Negative (05/07/2011 18:16:00)[facility] CampusUytxavoLEBRXRLNJS3217-58-90 00:16:0021-50 /HPF *ABN*(05/07/2011 18:16:00)[facility] 2011-05-08 00:16:00Trace *ABN*(05/07/2011 18:16:00)[facility] 2011-05-08 00:16:00>=1000 mg/dL *ABN*(05/07/2011 18:16:00)[facility] DSWOOGOCCH9952-34-38 00:16:00Negative (05/07/2011 18:16:00)[facility] KQSKQEXHKZ5510-92-16 00:16:00 Test Item Value Reference Range Interpretation Comments UA Spec Grav (test code = UA Spec 1.010 1 N Grav) [facility] HospitalTucthfuXVWXQQYFCM8578-91-52 00:16:00Clear (05/07/2011 18:16:00)[facility] HospitalKsvnznxROIIBQRYSN2421-91-93 00:16:00 Test Item Value Reference Range Interpretation Comments UA pH (test code = UA pH) 6.0 1 5.0-8.0 N [facility]BoxbdwmMXCDSYTUVL2626-42-71 00:16:00Yellow *NA*(05/07/2011 18:16:00) [facility]annBEDSIDE GLUCOSE HZRHMHY6101-46-56 06:51:54676Owulwlid Jona GHTCIUTZP2765-52-79 04:20:00Negative (04/19/2011 22:20:00)[facility] HVRJYAZTN2217-07-23 04:20:004.1[facility] VireqmgVWWIIZPRJ7720-46-44 04:20:0015 [facility] XjdhfeqQUBQEWLEA5030-02-35 04:20:009.2[facility] HermannCHEMISTRY 2011-04-20 04:20:0096[facility] JsgtfdhQZEAEUBEV2649-79-68 04:20:0016.2[facility] YsrnqnfZFSSLQTJD7494-74-28 04:20:0024[facility] LyaussjJOSZNEBOK0179-09-83 04:20:004.0[facility] UrvqyagIVPLUHPQK4661-69-44 04:20:008.1[facility] ROYMZTKAS2274-49-59 04:20:000.4[facility] NpxlthaREWASIRAW4191-99-82 04:20:0092 [facility] TljkxekRONNQWARZ6788-27-33 04:20:004[facility] CnidbmvOJHZHDBDW0621-66-59 04:20:0014[facility] MyrcdneARRYBMBJV4101-86-62 04:20:001.0[facility] FFAOHEPMT1583-26-79 04:20:85103Werkshrm AokpjfjAVMDXQDKD6393-65-24 04:20:000.8 [facility] KhnsuntESJUQOQOE4531-11-78 04:20:0012[facility] HermannCHEMISTRY 2011-04-20 04:20:004.2[facility] NghnuioDIWEOZRTD8461-38-41 04:20:74386Pjirbuya QopslxzHKIFHVVMQ0329-30-50 04:20:37021Urjswfyd GoikrhkAJOGTYFAQ0654-70-31 04:20:0070[facility] IphdajyXPOGLGQALO5979-46-92 04:20:007.9[facility] RGHXDFPCMR3027-06-47 04:20:15133Kciixwbk SojrzbrPGCCLAXSLA0887-48-39 04:20:00 4.54[facility] UcwtrrzJFYMMROYJT9552-78-95 04:20:0013.3[facility] HermannHEMATOLOGY 2011-04-20 04:20:00 Test Item Value Reference Range Interpretation Comments MCH (test code = MCH) 29.3 pg 27.0-31.0 N [facility] ZvwqlccRETTIXSGEI2932-96-56 04:20:0033.9[facility]annHEMATOLOGY 2011-04-20 04:20:0014.0[facility] AfthpldUXKISUKAMN5953-50-43 04:20:0039.3[facility] PxlqbquIAZJMOILDL2740-04-66 04:20:0086.5[facility] LnltemwQUMJTGCBSH4151-81-74 04:20:008.6[facility] ZzvosmzNYIRLZVJHU0434-22-56 04:20:000.1[facility] VUPGGAGLRW1507-02-77 04:20:000.1[facility] IddtyqmOTEXHVYBRZ7158-99-62 04:20:000.9 [facility] BgregcfTEJRJDLSXU9715-78-42 04:20:0019.9[facility]annHEMATOLOGY 2011-04-20 04:20:005.4[facility] BneppabHEYGHVHHJW4752-71-38 04:20:0073.1[facility] NyufedePEVAOELKFZ5235-35-11 04:20:001.7[facility] VvmfkogPZOGBBGDZU1832-39-37 04:20:000.5[facility] HyhpbwdVOGNIYCNDM6786-79-07 04:20:000.7[facility] MQPZUMVMXU8083-17-67 04:20:006.3[facility] JkgcqnvPEWIRUECFZ1077-91-75 02:29:00 Negative *NA*(04/19/2011 20:29:00)[facility] DaxwcakTBFFGEWTHN8814-86-76 02:29:00 Negative *NA*(04/19/2011 20:29:00)[facility] JuxkqeaWVUWXNCCIK2577-69-64 02:29:00 Negative (04/19/2011 20:29:00)[facility] ZtbsbjzOBUZPJMWVB0603-75-99 02:29:00 Negative (04/19/2011 20:29:00)[facility] CguwfbtOSHQRIMXMB8701-24-60 02:29:00 Test Item Value Reference Range Interpretation Comments UA pH (test code = UA pH) 6.0 1 5.0-8.0 N [facility] BlfdfnoVPWVJYCBDT0639-40-87 02:29:00>=1000 mg/dL *ABN*(04/19/2011 20:29:00)[facility] CoxrlqbSGSJZIHZIU6858-08-85 02:29:00Performed (04/19/2011 20:29:00)[facility] PxcveojPLHGKWARZL3634-05-43 02:29:00Negative (04/19/2011 20:29:00)[facility] BtrnjbnWZCHQFVLQZ0720-46-85 02:29:000.2[facility] HCNYPXWUCV8730-53-27 02:29:00Negative (04/19/2011 20:29:00)[facility] GBICPEDRBT2062-04-48 02:29:00Occasional /HPF (04/19/2011 20:29:00)[facility] LbdgwuiSRTUGQXCKL4645-50-01 02:29:00Occasional /LPF (04/19/2011 20:29:00) [facility] GliqkhdFOBOYUEWKS5185-99-08 02:29:003-5 /HPF (04/19/2011 20:29:00) [facility] SpmanupUAEHDWHZBR4921-70-09 02:29:000-2 /HPF (04/19/2011 20:29:00) [facility] HlpwqdeWZNIPRWVFD8205-34-49 02:29:00Clear (04/19/2011 20:29:00)[facility] YvgmgqlNNYFXDTGGB2508-35-34 02:29:00Yellow *NA*(04/19/2011 20:29:00)[facility] DPKXZQG0435-09-50 05:47:87633Xyzpqpfr HermannCHEMISTRY 2011-03-26 02:45:00<3[facility] TbiqterPPOCTLBFJ1260-09-53 02:45:009.2[facility] EqvszujELSZXMEEO5940-90-45 02:45:0014.0[facility] ZiumxtbBBFTGAOLW5260-36-97 02:45:0025[facility] VjskaboQZZRRBJKK9832-68-60 02:45:0097[facility] WOPNDJOIX8503-76-67 02:45:004.0[facility] CeekxysOPBVVFFVA8833-09-69 02:45:000.7 [facility] HniutwmKATPBIWFR7446-11-67 02:45:10641Bwuvyzle HermannCHEMISTRY 2011-03-26 02:45:000.5[facility] OiavubsMOLPEBVGC0843-54-29 02:45:0069[facility] XfghnjjZGKRCISQE0202-83-54 02:45:0014[facility] ElpooamBOUKMENZV1538-28-57 02:45:003.9[facility] WfjqudaOGMPSEXND1159-09-14 02:45:007.8[facility] USQAJORUN5426-93-66 02:45:0019[facility] PknvolwLYBRNYLYV5334-12-12 02:45:001.0 [facility] IjbvuyrGDWURVZFY2799-41-91 02:45:003.9[facility] HermannCHEMISTRY 2011-03-26 02:45:0013[facility] UkjkykuXSLOVDYRU6172-41-88 02:45:99125Vpkgvoin HurbcafKUCVKTOCP3377-67-42 02:45:67138Kmedlneh CxsfgfiMOTOQRIJGW8565-14-82 02:45:0012.7[facility] BsnjpodQYPKKLRCFM7789-18-77 02:45:0014.0[facility] XRIRKNESKF4604-80-70 02:45:0036.9[facility] IjfvtsiLACGSRWGRD5591-13-34 02:45:00 85.5[facility] MpoanymTICLBOAGLW3993-88-97 02:45:00 Test Item Value Reference Range Interpretation Comments MCH (test code = MCH) 29.5 pg 27.0-31.0 N [facility] JuiaivyZZVAMTRZYF8567-07-54 02:45:0034.5[facility] HermannHEMATOLOGY 2011-03-26 02:45:80542Hyrgwuvq SideibgTBIJZHFUVU6386-40-59 02:45:008.2[facility] QurbfuqQJWIPHTQNK8915-37-73 02:45:006.9[facility] AehniyjJCRJDSSJBP3476-51-06 02:45:004.32[facility] GtizermAGLZSKKPPU4918-27-30 02:45:000.5[facility] FCRHDPQWTE3410-43-83 02:45:004.6[facility] RibvpymXKXXTSQQLX4910-58-23 02:45:001.9 [facility] RvxipolKUTCFKNARD0910-43-92 02:45:000.3[facility] HermannHEMATOLOGY 2011-03-26 02:45:000.1[facility] XhavgayRJIFSCJSOI3844-34-72 02:45:000.0[facility] QmotokqSMFPWEWJAT3218-61-52 02:45:0027.2[facility] SragjirHBTMFWBNWW2593-88-32 02:45:0066.3[facility] IbyhgrwOJVVBEGVFS1045-43-51 02:45:004.8[facility] OHCJTHBFPX3259-72-72 02:45:001.2[facility] KoyunibRIPTSOGHFV6952-64-78 02:00:00 Occasional /HPF (03/25/2011 20:00:00)[facility] TrtyozuWDNEZBSOHJ4056-94-06 02:00:00Occasional /HPF *ABN*(03/25/2011 20:00:00)[facility]annURINALYSIS 2011-03-26 02:00:00Rare /LPF (03/25/2011 20:00:00)[facility]annURINALYSIS 2011-03-26 02:00:000-2 /HPF (03/25/2011 20:00:00)[facility]annURINALYSIS 2011-03-26 02:00:000-2 /HPF (03/25/2011 20:00:00)[facility]annURINALYSIS 2011-03-26 02:00:00Negative (03/25/2011 20:00:00)[facility]annURINALYSIS 2011-03-26 02:00:00Performed (03/25/2011 20:00:00)[facility]annURINALYSIS 2011-03-26 02:00:00Negative (03/25/2011 20:00:00)[facility]annURINALYSIS 2011-03-26 02:00:00Negative (03/25/2011 20:00:00)[facility]annURINALYSIS 2011-03-26 02:00:000.2[facility] GlehqnkTFOHCKDEKH6835-22-91 02:00:00Yellow *NA*(03/25/2011 20:00:00)[facility] PudguhfTMRVAOMVQS2361-28-71 02:00:00Clear (03/25/2011 20:00:00)[facility] DsnhkfxAWIMLTIZZG8331-37-80 02:00:00Negative *NA*(03/25/2011 20:00:00)[facility]fiztcjUOHAVNVTRR0839-33-72 02:00:00>=1000 mg/dL *ABN*(03/25/2011 20:00:00)[facility]wvfgevVPNHKWABWY1027-23-25 02:00:00 Negative *NA*(03/25/2011 20:00:00)[facility] YqsyxmzZWLXCFAGLT3318-79-74 02:00:00 Test Item Value Reference Range Interpretation Comments UA pH (test code = UA pH) 6.0 1 5.0-8.0 N [facility] BjgizvgBNHTEPMISC1033-19-86 02:00:00Negative (03/25/2011 20:00:00) [facility] HermannBEDSIDE GLUCOSE OZVDOFQ7480-93-60 16:26:98290.0[facility] GBJDQZGDY0543-72-99 15:30:00<0.6[facility] CyupctvVTXRZYBMU4697-07-92 15:30:00 <0.5[facility] HftluapESKLOHFYT5745-92-52 15:30:0077.0[facility]ann[facility]MISTRY 2011-02-11 15:30:0077.0[facility] WtbfrzpLXRJATXGE9072-55-78 15:30:00<0.02 [facility] OVFYNCO5470-80-38 12:00:14014.0[facility] RPEIFMYSO7290-56-55 09:29:001.5[facility] YjpgottJQWZZDYBO1041-53-52 09:29:93536.0 [facility] DwakctuGODBXZWEL7327-90-77 09:29:0011.0[facility]annCHEMISTRY 2011-02-11 09:29:007.8[facility] HhbvgncDZJDMUWNG7209-46-18 09:29:0013.7[facility] XxtayofVAURICIEO8621-42-14 09:29:000.6[facility] HepzpnyNSVYYSDQU5083-60-01 09:29:67918.0[facility] LljkihfINAOKUWKP8297-62-61 09:29:003.7[facility] YBCFWOTDU0198-93-99 09:29:63170.0[facility] ZyegdvoWMBRQWITD8274-17-03 09:29:00 24.0[facility] KafnfzmWLHALLFSF9652-67-40 09:29:00<0.02[facility] FLYPVWLWJ0147-53-23 09:29:0071.0[facility] VbfcnsxRKRPLGVAK6937-68-60 09:29:0071.0 [facility] LuugdgtZZTHIAPNUR6682-19-93 09:29:007.8[facility]annHEMATOLOGY 2011-02-11 09:29:0014.1[facility] OppznvsCZAQNUIJHI7319-25-90 09:29:006.8[facility] RekemavICTQELBRZG4549-03-97 09:29:0011.8[facility] JkdkdqfXTDPESNGEO9884-35-03 09:29:004.11[facility] OcizmdjOCTNCYKWHD4681-40-75 09:29:0035.3[facility] FASQSEPMWJ6585-69-02 09:29:00 Test Item Value Reference Range Interpretation Comments MCH (test code = MCH) 28.7 pg 27.0-31.0 N [facility] BrsdbrtKYTBJVKLPV4588-57-20 09:29:0085.7[facility]annHEMATOLOGY 2011-02-11 09:29:96586.0[facility] IpvwizyVYVGCXQYZJ9366-67-61 09:29:0033.5 [facility] KrbbhlhIXBOTKEQMG3763-54-95 09:29:0026.3[facility]annHEMATOLOGY 2011-02-11 09:29:0065.8[facility] ZpqveldNDAJGHFEGM4306-12-84 09:29:006.1[facility] WscfoffAJQNKXRQYK0351-39-12 09:29:001.2[facility] RnxzworNFZPIVNJJQ2694-35-67 09:29:000.6[facility] PyvagqvYXWUFCGMTI3508-23-51 09:29:004.5[facility] LHIXVUFUJB2281-68-19 09:29:001.8[facility] XzfuebsYALJWYIFZO0396-69-15 09:29:000.4 [facility] BlvyibxPAOTSGDROI6514-64-39 09:29:000.0[facility]annHEMATOLOGY 2011-02-11 09:29:000.1[facility] HermannBEDSIDE GLUCOSE DHWALVJ6261-46-21 05:34:00 151.0[facility] RqklpttHUVWRGDFNJ8919-44-51 03:26:00>=1000 mg/dL *ABN*(02/10/2011 22:26:00) [facility]xtTVHXTBHIHW4026-61-19 03:26:00 Negative mg/dL *NA*(02/10/2011 22:26:00) ??[facility] MgauhhkSJWOIOGHYX4946-88-98 03:26:00 Test Item Value Reference Range Interpretation Comments UA pH (test code = UA pH) 6.5 1 5.0-8.0 N [facility] RpvaonvVDABCWMLFQ7823-17-07 03:26:00Negative mg/dL (02/10/2011 22:26:00) ??[facility] VocztolSKONEWPIAF5504-96-23 03:26:00Negative (02/10/2011 22:26:00) ??[facility] XqvzhbaUXKFNDIDAG8560-63-25 03:26:00Negative (02/10/2011 22:26:00) ??[facility] GhzbiomZOUAZAALPV0473-73-16 03:26:000.2[facility] JRSJKDXAHW0413-49-88 03:26:00Negative (02/10/2011 22:26:00) ??[facility] SWGLBQTFGE4474-41-39 03:26:00Negative *NA*(02/10/2011 22:26:00) [facility]QenwbhoSMAXTKDCST4111-02-27 03:26:00Clear (02/10/2011 22:26:00) ??[facility] IxourauSFVVTPBWWX4563-91-21 03:26:00 Test Item Value Reference Range Interpretation Comments UA Spec Grav (test code = UA Spec 1.01 1 N Grav) [facility] BoqeppvSUEMIQBMCF2719-84-98 03:26:00Yellow *NA*(02/10/2011 22:26:00) ?? [facility] CbugvwoGFSOWSMWLB1088-47-23 03:26:000-2 /HPF (02/10/2011 22:26:00) ?? [facility] NpezinkTLBDXECRZS6001-46-48 03:26:006-10 /HPF *ABN*(02/10/2011 22:26:00) ??[facility] KgokrlsLOKXCFBMNG9491-31-86 03:26:00Few /LPF (02/10/2011 22:26:00) ??[facility] TmrrbfqUJAEFNCJRT6602-67-05 03:26:00Few /HPF (02/10/2011 22:26:00) ??[facility] MuzvzfhWHWYCKMGNW4254-88-44 03:26:00Occasional /HPF *ABN*(02/10/2011 22:26:00) ??[facility] FdnjilwESIKYHJHCV9329-03-32 03:26:00 Performed (02/10/2011 22:26:00) ??[facility] LmrzeneIQYEVWZYL5664-75-51 03:03:00 Negative *NA*(02/10/2011 22:03:00) ??[facility] MiktfhdITPVHEPIE9566-06-58 03:03:00<0.5[facility] ElhnzthBBRKKCLOG1640-99-86 03:03:00<0.02[facility] TenchqbHZWFTBNHW4843-48-75 03:03:007.0[facility] UynnwoiDXUSVCVCU3434-16-21 03:03:004.0[facility] PsdenmgIPIXNEXKW5164-02-78 03:03:007.5[facility] HLIGIHZPX4690-35-95 03:03:00 Test Item Value Reference Range Interpretation Comments A/G Ratio (test code = A/G Ratio) 1.1 1 0.7-1.6 N [facility] WmoxlweOPOXTEERA1166-17-66 03:03:003.5[facility]annCHEMISTRY 2011-02-11 03:03:0014.0[facility] FogjipaYQQTLHQOY7230-03-51 03:03:000.3[facility] WvjgisoJNKOTVQJE5720-81-19 03:03:0069.0[facility] TxueqqaJPEDUKHEV6088-26-01 03:03:0022.0[facility] YzzoovnDMSKRTQSB9358-59-16 03:03:00 Test Item Value Reference Range Interpretation Comments B/C Ratio (test code = B/C Ratio) 20.0 1 6-25 N [facility] OqeegffDCFATUIME4201-57-30 03:03:0096.0[facility]annCHEMISTRY 2011-02-11 03:03:008.7[facility] WtkndbdDLSPJWRFJ6663-32-67 03:03:0017.3[facility] AkjksgoQSOVPFEMV8652-43-68 03:03:86812.0[facility] DbvofgdOMJEJWGHQ2021-07-54 03:03:68144.0[facility] SnklufxTTSCGKAXR2833-84-39 03:03:000.6[facility] WODIZDEGT7360-24-49 03:03:0012.0[facility] XaqktxzSQCILHWYN7381-64-39 03:03:004.3 [facility] IbdkvpyMJSCDPVOI1019-02-38 03:03:00Negative (02/10/2011 22:03:00) ?? [facility] TwmtqkkIGMWLNZVIE0898-20-93 03:03:003.9[facility]annHEMATOLOGY 2011-02-11 03:03:002.0[facility] ZabrnkpOAPLEBGMYK1823-75-41 03:03:000.5[facility] OcwxftfGXHJPQQTKS4021-19-83 03:03:000.4[facility] GnpikrsIQOLARXVBK9850-53-89 03:03:000.1[facility] XhngzdyEYYWSYXUHN9917-52-99 03:03:0060.9[facility] RFIYSHBWSB0662-35-07 03:03:0031.7[facility] SfacwrvBHVPZVVRTG6657-98-93 03:03:00 1.2[facility] AbxabikEWOGUZJFEL2592-58-79 03:03:005.7[facility]annHEMATOLOGY 2011-02-11 03:03:000.0[facility] NvpvsxtTXYHDQCWMY7460-66-64 03:03:00 Test Item Value Reference Range Interpretation Comments PT (test code = PT) 13.9 s 12.0-14.7 N [facility]crosdpXFIGHDCVYU7280-46-18 03:03:00 Test Item Value Reference Range Interpretation Comments PTT (test code = PTT) 28.4 s 22.9-35.8 N [facility]OxntikpOMWTQNFQKV9764-76-83 03:03:00 Test Item Value Reference Range Interpretation Comments INR (test code = INR) 1.07 1 0.85-1.17 N [facility] AllenWostembEJXNYMOOCT8457-64-79 03:03:0033.7[facility]annHEMATOLOGY 2011-02-11 03:03:0014.3[facility] EksoslkZAEMCQPFCL2591-37-65 03:03:91381.0 [facility] AllenBttpirmYNFBYKDNUP2613-94-42 03:03:007.9[facility]annHEMATOLOGY 2011-02-11 03:03:0085.9[facility] MexsupvGKZDOZAELG9585-20-68 03:03:004.43[facility] LoueeclSKXLOKVWSI9666-32-76 03:03:0038.1[facility] PcnwlqfVRPGGPUNXM6900-00-26 03:03:0012.8[facility] BthwlmrFHWFKBXNIZ2978-28-41 03:03:00 Test Item Value Reference Range Interpretation Comments MCH (test code = MCH) 28.9 pg 27.0-31.0 N [facility] AllenOronirfIDXWBTRKKH8112-31-55 03:03:006.5[facility]annHEMATOLOGY 2011-02-11 03:03:001.1[facility]annBEDSIDE GLUCOSE SZJXRMA7019-32-11 16:39:00 175.0[facility]annBEDSIDE GLUCOSE RLUHZTV8168-82-84 12:16:0088.0[facility]annBEDSIDE GLUCOSE LWJQJIC3811-85-71 11:27:0070.0[facility] HermannCHEMISTRY 2011-01-15 10:45:00<0.6[facility] WggqeadJTTJWBWIJ8170-90-27 10:45:00<0.5 [facility] PllelasZSEKTJCZE9936-22-65 10:45:00<0.02[facility]annCHEMISTRY 2011-01-15 10:45:0088.0[facility] EnfeqszSGLFPLVNC7804-09-86 10:45:000.6[facility] DtjaflxXMSEFWAPY0753-02-82 10:45:003.4[facility] GtqekhlDIFIYMXWY9818-02-56 10:45:23138.0[facility] SwusjmdNIPRAKHBT7877-50-53 10:45:0013.0[facility] EEBEHSNML7857-97-22 10:45:0025.0[facility] QhrwupyYKZBBBLCY2356-99-90 10:45:008.0 [facility] NeloiibPZWJQSIZV3681-96-26 10:45:0018.4[facility]annCHEMISTRY 2011-01-15 10:45:89714.0[facility] FbfxwrrVUZSHAZCK2542-38-94 10:45:17076.0 [facility] XlpwhkhCWXTHMNQD2107-23-03 10:45:0096.0[facility]annCHEMISTRY 2011-01-15 10:45:00 Test Item Value Reference Range Interpretation Comments CHD Risk (test code = CHD Risk) 3.8 1 3.90-5.80 L [facility] TlgbbctUMNNRLQDK8293-25-12 10:45:0045.0[facility]annCHEMISTRY 2011-01-15 10:45:94518.0[facility] ZkpsvugNTVBNRIDY4445-31-69 10:45:37764.0 [facility] WyfynjpTWIYKUEPG9878-44-40 01:43:00<0.5[facility]annCHEMISTRY 2011-01-15 01:43:00<0.6[facility] YbtfuewQQLXECUUT3280-02-41 01:43:0083.0 [facility] EmwzxeaLIETPJBET1460-17-89 01:43:00<0.02[facility]annCHEMISTRY 2011-01-14 21:36:00Negative (01/14/2011 16:36:00) ??[facility]annCHEMISTRY 2011-01-14 20:36:00<0.6[facility] BtlftkuDRITHMWON7782-52-34 20:36:0013.0 [facility] EeidvvdUYCWHLPBR1120-46-38 20:36:00<3.0[facility]annCHEMISTRY 2011-01-14 20:36:000.5[facility] HqowtfvZLHYRYCNC1440-26-97 20:36:003.8[facility] ObooyfpUUNMBNWXT6152-79-15 20:36:0017.0[facility] PkcqicyUAKHEZOGC1192-31-84 20:36:0071.0[facility] JoahhfeREMQHXMDP7169-28-20 20:36:003.8[facility] HTZRDFFLN0937-13-49 20:36:78330.0[facility] PavdaqyCUIVPYVZN1391-97-90 20:36:00 22.0[facility] JvzxngrYNUJOCQTA8072-89-70 20:36:0014.8[facility]annCHEMISTRY 2011-01-14 20:36:008.6[facility] XqbosqhQYATSOXBE7050-78-18 20:36:86660.0[facility] CqcqtnjCBFOWTQCG4105-77-79 20:36:003.6[facility] EhdxjtrBFVDQAGDU8221-92-90 20:36:00 Test Item Value Reference Range Interpretation Comments A/G Ratio (test code = A/G Ratio) 1.1 1 0.7-1.6 N [facility] PhaclaxKWUBWYBLV7072-26-40 20:36:00 Test Item Value Reference Range Interpretation Comments B/C Ratio (test code = B/C Ratio) 11.0 1 6-25 N [facility] EyzmjywBJAUHKEIT3302-76-58 20:36:007.4[facility]annCHEMISTRY 2011-01-14 20:36:19230.0[facility] VydqvfzLVZKZPBTX2426-72-00 20:36:009.0[facility] GmzwunzJZVAFPMJI2847-26-76 20:36:000.8[facility] TxntxmmLBUAQDKMC5999-75-80 20:36:00<0.02[facility] XzkxxaqXEZFKSSUN9567-24-74 20:36:00<0.5[facility] TsckqekZZETRFAIT9052-40-03 20:36:0078.0[facility] UphrsnkNHOQQGPQPD4250-20-14 20:36:000.3[facility] JbzrrbeBJRSMPOYXG2916-54-83 20:36:001.7[facility] ZLWGVYODTT2036-22-38 20:36:003.5[facility] OigvaeaXVKUORIGQR5212-80-54 20:36:000.9 [facility] HlrsubuODVQNUVOOL0854-07-16 20:36:000.9[facility]annHEMATOLOGY 2011-01-14 20:36:000.0[facility] GlcfgggLSAATIUEEH6498-26-07 20:36:000.1[facility] BnwilsjXEJISTXWOQ2671-48-81 20:36:0030.7[facility] FctiaaoOMIDABHWJE2691-18-17 20:36:0063.0[facility] AfuicdoGGPPXTTZFP7877-45-17 20:36:004.5[facility] DIZYAUZMWI9420-70-91 20:36:0014.6[facility] EkmhzygBCGZDJRXBF0557-63-88 20:36:00 34.0[facility] YrxaojsYSZERVFJZR9982-27-01 20:36:008.0[facility]annHEMATOLOGY 2011-01-14 20:36:74450.0[facility] LoqhqmfXIFKKWGDGK6839-85-45 20:36:00 Test Item Value Reference Range Interpretation Comments MCH (test code = MCH) 28.8 pg 27.0-31.0 N [facility] FckbrerMEZUNWVDNP5762-82-56 20:36:0013.2[facility]annHEMATOLOGY 2011-01-14 20:36:004.6[facility] PzomgnyZNAZIHAUYJ3886-51-38 20:36:0038.9[facility] ZomgjgjBJBZVBEFFD5232-90-30 20:36:0084.6[facility] ScbjfkiPQLLBNUBSX3744-93-79 20:36:005.6[facility] LwvgnbeFCBUTLSONC3569-38-76 20:36:00 Test Item Value Reference Range Interpretation Comments PT (test code = PT) 13.6 s 12.0-14.7 N [facility]dmkBCAPLCIACV7388-54-76 20:36:00 Test Item Value Reference Range Interpretation Comments PTT (test code = PTT) 30.2 s 22.9-35.8 N [facility] CenterZaplgtbTHMWUCTGVY9055-54-85 20:36:00 Test Item Value Reference Range Interpretation Comments INR (test code = INR) 1.04 1 0.85-1.17 N [facility] CenterMlctzorGQBHXZKTZD3362-62-27 20:36:001.5[facility]
--- NOTE | 2019-11-15 20:04 | RAD REPORT ---
EXAM DESCRIPTION: CT - Head Brain Wo Cont - 11/15/2019 7:42 pm CLINICAL HISTORY: Syncope COMPARISON: 2014 TECHNIQUE: Computed axial tomography of the head was obtained. IV contrast was not requested. All CT scans are performed using dose optimization technique as appropriate and may include automated exposure control or mA/KV adjustment according to patient size. FINDINGS: An intracranial bleed is not seen . The ventricles are normal in caliber. No extra-axial fluid collection is noted. Empty sella turcica is present Fluid within the sinuses/ mastoids is not seen. IMPRESSION: No acute intracranial abnormality is seen. If patient's symptoms persist MRI of the bra in would be recommended.
--- NOTE | 2019-11-15 20:24 | RAD REPORT ---
EXAM DESCRIPTION: RAD - Knee Left 2 View - 11/15/2019 8:14 pm CLINICAL HISTORY: Knee pain FINDINGS: No fracture or dislocation seen No bone or joint abnormality noted Limited 2 view series obtained
--- NOTE | 2019-11-15 20:24 | RAD REPORT ---
EXAM DESCRIPTION: RAD - Knee Right 2 View - 11/15/2019 8:14 pm CLINICAL HISTORY: Right knee pain FINDINGS: No fracture or dislocation seen No bone or joint abnormality noted Limited 2 view series obtained
--- NOTE | 2019-11-15 20:27 | RAD REPORT ---
EXAM DESCRIPTION: Marco A Single View11/15/2019 8:13 pm CLINICAL HISTORY: sob COMPARISON: June 2019 FINDINGS: The lungs appear clear of acute infiltrate. The heart is normal size IMPRESSION: No acute abnormalities displayed
[2019-11-15 21:02] LABS: Absolute Lymphocytes (CBC) 2.5 K/uL (0.7-4.9); Basophils % 0.6 % (0-1.3); Hematocrit 33.7 % (36.0-45.0); Lymphocytes % 23.7 % (15.3-44.8); MPV 8.1 fL (7.6-11.3); RBC Red Blood Cell Count 4.09 M/uL (3.86-4.86)
[2019-11-15 21:24] LABS: ALT/SGPT 18 U/L (12-78); AST/SGOT 16 U/L (15-37); Albumin 3.5 g/dL (3.4-5.0); Alkaline Phosphatase 136 U/L (45-117); BUN Blood Urea Nitrogen 30 mg/dL (7-18); Bicarbonate 27 mmol/L (21-32); Bilirubin Direct < 0.1 mg/dL (0-0.2); Bilirubin Total 0.3 mg/dL (0.2-1.0); Lipase 136 U/L (73-393); NT PRO-BNP 13 pg/mL (<125); Potassium 4.3 mmol/L (3.5-5.1); Protein, Total 8.4 g/dL (6.4-8.2); Sodium Level 133 mmol/L (136-145); Troponin (Emerg Dept Use Only) < 0.02 ng/mL (0.0-0.045)
[2019-11-15 21:33] LABS: Glucose Level 440 mg/dL (74-106)
[2019-11-15] MEDS ORDERED: INSULIN -REGULAR HUMAN 50 UNIT/0.5 ML ML ONE (22:44)
[2019-11-15 23:52] LABS: Urine Bacteria 20-50 /HPF (<20); Urine Culture Reflex Order NOT NEEDED; Urine RBC <5 /HPF (NONE SEEN); Urine Urothelial Cells <5 /HPF (NONE SEEN)
[2019-11-16 00:04] LABS: Urine Blood TRACE (NEG); Urine Glucose 3+ (NEG); Urine Protein NEGATIVE (NEG); Urine Specific Gravity 1.015 (1.005-1.030)
--- NOTE | 2019-11-16 00:04 | ER ---
Nurse's Notes [facility] Name: Melissa De Oliveira Age: 54 yrs Sex: Female : 1965 Arrival Date: 11/15/2019 Time: 18:49 Bed 28 Private MD: Diagnosis: Hyperglycemia, unspecified;Dehydration;Syncope and collapse;Urinary tract infection, site not specified Presentation: 11/14 19:04 Chief complaint: Patient states: 0630 today, passed out while walking in the kitchen. ca1 Woke up with face first on floor. At 1630 this afternoon, passed out while walking in the bathroom. Reports dizziness prior to passing out and dizziness at this time. Reports SOB with exertion. Coronavirus screen: Client denies travel out of the [place] in the last 14 days. At this time, the client does not indicate any symptoms associated with coronavirus-19. Ebola Screen: Patient negative for fever greater than or equal to 101.5 degrees Fahrenheit, and additional compatible Ebola Virus Disease symptoms Patient denies exposure to infectious person. Patient denies travel to an Ebola-affected area in the 21 days before illness onset. No symptoms or risks identified at this time. Initial Sepsis Screen: Does the patient meet any 2 criteria? No. Patient's initial sepsis screen is negative. Does the patient have a suspected source of infection? No. Patient's initial sepsis screen is negative. Risk Assessment: Do you want to hurt yourself or someone else? Patient reports no desire to harm self or others. Onset of symptoms was November 15, 2019. 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 - Social history:: Smoking status: Patient denies any tobacco usage or history of. - Family history:: not pertinent. - Hospitalizations: : No recent hospitalization is reported. Screenin:34 Abuse screen: Denies threats or abuse. Denies injuries from another. Nutritional ks7 screening: No deficits noted. Tuberculosis screening: No symptoms or risk factors identified. Fall Risk None identified. Assessment: 20:15 General: Pt comes in from home d/t synopal episodes x 2 today. in ED pt denies ks7 dizziness, pain, n/v/d. aaox4, ambulates without assistance. General:. 21:28 Reassessment: Lab called : critical lab value BG 430. Pain: Denies pain. ks7 21:30 General: Appears in no apparent distress. Behavior is cooperative, anxious. Neuro: No ks7 deficits noted. 22:50 Reassessment: rechecked pt BG prior to administering insulin SQ. FSB. Pt refused ks7 insulin SQ. she states her BG drops and will recheck her BG and take her own insulin when she gets home. 22:53 Reassessment: pt told MD she wants to go home. Patient states feeling better. ks7 11/15 00:14 Reassessment: Patient states feeling better. ks7 Vital Signs: 11/14 19:00 BP 99 / 62; Pulse 105; Resp 18; Temp 99.1(O); Pulse Ox 99% on R/A; Pain 0/10; ks7 19:04 BP 95 / 51; Pulse 102; Resp 14 S; Temp 99.4(O); Pulse Ox 99% on R/A; Weight 48.53 kg ca1 (R); Height 5 ft. 6 in. (167.64 cm) (R); 20:10 BP 137 / 71; Pulse 98; Resp 18; Pulse Ox 99% on R/A; Pain 0/10; ks7 20:30 BP 140 / 79; Pulse 98; Resp 18; Pulse Ox 100% on R/A; Pain 0/10; ks7 21:00 BP 145 / 68; Pulse 98; Resp 18; Pulse Ox 100% on R/A; Pain 0/10; ks7 21:34 BP 144 / 72; Pulse 122; Resp 18; Temp 99.1(O); Pulse Ox 98% on R/A; Pain 0/10; ks7 22:00 BP 132 / 66; Pulse 89; Resp 18; Temp 99(O); Pulse Ox 98% on R/A; Pain 0/10; ks7 22:00 BP 134 / 69; Pulse 92; Resp 18; Temp 99(O); Pulse Ox 99% ; Pain 0/10; ks7 23:00 BP 143 / 75; Pulse 93; Resp 18; Temp 99(O); Pulse Ox 100% on R/A; Pain 0/10; ks7 23:30 BP 150 / 75; Pulse 88; Resp 18; Pulse Ox 100% on R/A; Pain 0/10; ks7 11/15 00:04 BP 146 / 81; Pulse 87; Resp 16; Pulse Ox 98% on R/A; Pain 0/10; ks7 11/14 19:04 Body Mass Index 17.27 (48.53 kg, 167.64 cm) ca1 ED Course: 11/14 18:49 Patient arrived in ED. ag5 18:57 Chandana Nelson MD is Attending Physician. rn 19:07 Triage completed. ca1 19:08 Arm band placed on right wrist. ca1 19:29 Key Murillo, RN is Primary Nurse. ks7 19:[address] ks7 19:41 CT Head Brain wo Cont In Process Unspecified. EDMS 19:53 XRAY Knee RIGHT 2 view Sent. ks7 19:53 XRAY Knee LEFT 2 view Sent. ks7 20:13 XRAY Chest (1 view) In Process Unspecified. EDMS 20:13 XRAY Knee LEFT 2 view In Process Unspecified. EDMS 20:13 XRAY Knee RIGHT 2 view In Process Unspecified. EDMS 21:34 Resting quietly. ks7 21:34 Patient has correct armband on for positive identification. Bed in low position. Call ks7 light in reach. Side rails up X2. 21:34 No provider procedures requiring assistance completed. Inserted saline lock: 20 gauge ks7 in left wrist, using aseptic technique. Blood collected. 23:06 Urine Culture Sent. ks7 23:06 Urine Microscopic Only Sent. ks7 23:13 pt ambulated to bathroom independently. back in room resting quietly. ks7 11/15 00:14 IV discontinued, intact, bleeding controlled, No redness/swelling at site. Pressure ks7 dressing applied. Administered Medications: Discontinued: NS 0.9% 1000 ml IV at 1000 ml once 11/14 20:30 Drug: NS 0.9% 1000 ml Route: IV; Rate: 1000 ml; Site: left wrist; ks7 22:50 Not Given (Patient Refused): Insulin Regular Human 10 units Sub-Q once 7 11/15 00:14 Drug: Cipro 500 mg Route: PO; ks Outcome: 00:04 Discharge ordered by . rn 00:14 Discharged to home ambulatory. ks 00:14 Condition: good 00:14 Discharge instructions given to patient, Instructed on discharge instructions, medication usage, Demonstrated understanding of instructions, medications, Prescriptions given X 1. 00:15 Patient left the ED. ks7 Addendum: 11/17/2019 15:29 Addendum: COVID-19 Result: Negative result given to RN to notify pt. Notified pt of s s negative COVID 19 swab results. Pt advised that even with a negative test result they should remain in isolation until symptom free for 3 days without medication. Pt also advised to return to the ED for worsening symptoms. Signatures: Dispatcher [employer] EDMS Chandana Nelson MD MD rn Smirch, Shelby, RN RN Montse Doyle RN RN [facility] Trino Johnson 5 Key Murillo RN RN ks7 Corrections: (The following items were deleted from the chart) 11/14 21:42 21:34 BP 144 / 72; Pulse 122bpm; Resp 18bpm; Pulse Ox 98% RA; Pain 0/10; ks7 ks7
--- NOTE | 2019-11-16 00:05 | EDPHYS ---
Physician Documentation [facility] Name: Melissa De Oliveira Age: 54 yrs Sex: Female : 1965 Arrival Date: 11/15/2019 Time: 18:49 Bed 28 Private MD: ED Physician Chandana Nelson HPI: 11/14 19:07 This 54 yrs old Female presents to ER via Unassigned with complaints of rn Fainting. 19:07 The patient has experienced syncope. Onset: The symptoms/episode began/occurred today. rn Duration: The patient has had multiple episodes. Associated injury: Left lower extremity: Right lower extremity:. 19:08 Current symptoms: dizziness. The patient has experienced a previous episode. Reports rn passed out twice today, sugar was ok, no fever/vomiting/diarrhea/change in stool color/cough/headache/focal neuro complaint. Reports dizziness and lightheaded, + dyspnea on exertion. No chest pain. Eating fine, normal taste/smell.. 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 - Social history:: Smoking status: Patient denies any tobacco usage or history of. - Family history:: not pertinent. - Hospitalizations: : No recent hospitalization is reported. ROS: 19:08 Constitutional: Negative for fever, chills, and weight loss, Eyes: Negative for injury, rn pain, redness, and discharge, ENT: Negative for injury, pain, and discharge, Neck: Negative for injury, pain, and swelling, Cardiovascular: Negative for chest pain, palpitations, and edema, Respiratory: Negative for shortness of breath, cough, wheezing, and pleuritic chest pain, Abdomen/GI: Negative for abdominal pain, nausea, vomiting, diarrhea, and constipation, Back: Negative for injury and pain, : Negative for injury, bleeding, discharge, and swelling, MS/Extremity: + bilateral knee pain from fall Skin: Negative for injury, rash, and discoloration, Neuro: Negative for headache, weakness, numbness, tingling, and seizure. Exam: 19:08 Constitutional: This is a well developed, well nourished patient who is awake, alert, rn and in no acute distress. Ambulatory to room without difficulty Head/Face: Normocephalic, atraumatic. Eyes: Pupils equal round and reactive to light, extra-ocular motions intact. Lids and lashes normal. Conjunctiva and sclera are non-icteric and not injected. Cornea within normal limits. Periorbital areas with no swelling, redness, or edema. ENT: dry MM, no stridor Neck: Trachea midline, no masses palpated, and no cervical lymphadenopathy. Supple, full range of motion without nuchal rigidity, or vertebral point tenderness. No Meningismus. Cardiovascular: Tachycardic, regular Respiratory: Speaking full sentences. No increased work of breathing, no retractions or nasal flaring. Abdomen/GI: soft, non-tender Skin: Warm, dry, no evidence of cellulitis MS/ Extremity: Pulses equal, no cyanosis. Neurovascular intact. Full, normal range of motion. Equal circumference. Neuro: Awake and alert, GCS 15, oriented to person, place, time, and situation. Cranial nerves II-XII grossly intact. Motor strength 5/5 in all extremities. Sensory grossly intact. Cerebellar exam normal. 21:23 ECG was reviewed by the Attending Physician. rn Vital Signs: 19:00 BP 99 / 62; Pulse 105; Resp 18; Temp 99.1(O); Pulse Ox 99% on R/A; Pain 0/10; ks7 19:04 BP 95 / 51; Pulse 102; Resp 14 S; Temp 99.4(O); Pulse Ox 99% on R/A; Weight 48.53 kg ca1 (R); Height 5 ft. 6 in. (167.64 cm) (R); 20:10 BP 137 / 71; Pulse 98; Resp 18; Pulse Ox 99% on R/A; Pain 0/10; ks7 20:30 BP 140 / 79; Pulse 98; Resp 18; Pulse Ox 100% on R/A; Pain 0/10; ks7 21:00 BP 145 / 68; Pulse 98; Resp 18; Pulse Ox 100% on R/A; Pain 0/10; ks7 21:34 BP 144 / 72; Pulse 122; Resp 18; Temp 99.1(O); Pulse Ox 98% on R/A; Pain 0/10; ks7 22:00 BP 132 / 66; Pulse 89; Resp 18; Temp 99(O); Pulse Ox 98% on R/A; Pain 0/10; ks7 22:00 BP 134 / 69; Pulse 92; Resp 18; Temp 99(O); Pulse Ox 99% ; Pain 0/10; ks7 23:00 BP 143 / 75; Pulse 93; Resp 18; Temp 99(O); Pulse Ox 100% on R/A; Pain 0/10; ks7 23:30 BP 150 / 75; Pulse 88; Resp 18; Pulse Ox 100% on R/A; Pain 0/10; ks7 11/15 00:04 BP 146 / 81; Pulse 87; Resp 16; Pulse Ox 98% on R/A; Pain 0/10; ks7 11/14 19:04 Body Mass Index 17.27 (48.53 kg, 167.64 cm) ca1 MDM: 11/14 18:58 Patient medically screened. rn 22:55 Differential Diagnosis: vasovagal episode, dehydration, viral syndrome, COVID-19, rn hyperglycemia, UTI, cardiac event. Data reviewed: vital signs, nurses notes, lab test result(s), EKG, radiologic studies, plain films. 22:56 Counseling: I had a detailed discussion with the patient and/or guardian regarding: the rn historical points, exam findings, and any diagnostic results supporting the discharge/admit diagnosis, lab results, radiology results, the need for outpatient follow up, to return to the emergency department if symptoms worsen or persist or if there are any questions or concerns that arise at home. Response to treatment: the patient's symptoms have markedly improved after treatment, the patient's condition has returned to base line, the patient is now symptom free, patient is well hydrated. and as a result, I will discharge patient. Special discussion: I discussed with the patient/guardian in detail that at this point there is no indication for admission to the hospital. It is understood, however, that if the symptoms persist or worsen the patient needs to return immediately for re-evaluation. ED course: Pt with neg w/u here other than hyperglycemia and dehydration, could have been precipitated by viral syndrome vs just hyperglycemia. Pt feels much better after fluids, stable vitals with great improvement in BP. Will dc home when flu and urine studies return.Pt states wants to go home already.. 11/14 19:07 Order name: Basic Metabolic Panel; Complete Time: 21:52 rn 11/14 19:07 Order name: CBC with Diff; Complete Time: 21:22 rn 11/14 19:07 Order name: Hepatic Function; Complete Time: 21:52 rn 11/14 19:07 Order name: Lipase; Complete Time: 21:52 rn 11/14 19:07 Order name: Troponin (emerg Dept Use Only); Complete Time: 21:52 rn 11/14 19:07 Order name: BNP; Complete Time: 21:52 rn 11/14 19:07 Order name: Flu; Complete Time: 00:03 rn 11/14 19:07 Order name: COVID-19 rn 11/14 19:07 Order name: Procalcitonin; Complete Time: 22:23 rn 11/14 19:07 Order name: Blood Culture Adult (2) rn 11/14 19:07 Order name: Urine Microscopic Only; Complete Time: 00:03 rn 11/14 19:07 Order name: Urine Culture rn 11/14 22:59 Order name: Glucose, Ancillary Testing; Complete Time: 23:30 EDMS 11/14 23:13 Order name: Urine Dipstick--Ancillary (enter results) ar5 11/14 19:07 Order name: CT Head Brain wo Cont; Complete Time: 20:37 rn 11/14 19:07 Order name: EKG; Complete Time: 19:12 rn 11/14 19:07 Order name: Cardiac monitoring; Complete Time: 21:06 rn 11/14 19:07 Order name: EKG - Nurse/Tech; Complete Time: 21:06 rn 11/14 19:07 Order name: IV Saline Lock; Complete Time: 21:06 rn 11/14 19:07 Order name: Labs collected and sent; Complete Time: 21:06 rn 11/14 19:07 Order name: O2 Per Protocol; Complete Time: 21:06 rn 11/14 19:07 Order name: O2 Sat Monitoring; Complete Time: 21:06 rn 11/14 19:07 Order name: Urine Dipstick-Ancillary (obtain specimen); Complete Time: 23:06 rn 11/14 19:07 Order name: XRAY Chest (1 view); Complete Time: 20:37 rn 11/14 19:08 Order name: BRIT[place]AY Knee LEFT 2 view; Complete Time: 20:37 rn 11/14 19:08 Order name: XRAY Knee RIGHT 2 view; Complete Time: 20:37 rn EC:23 Rate is 97 beats/min. Rhythm is regular. QRS [place] is Normal. ND interval is normal. QRS rn interval is normal. QT interval is normal. No Q waves. T waves are Normal. No ST changes noted. Clinical impression: Normal ECG. Interpreted by me. Reviewed by me. Administered Medications: Discontinued: NS 0.9% 1000 ml IV at 1000 ml once 20:30 Drug: NS 0.9% 1000 ml Route: IV; Rate: 1000 ml; Site: left wrist; ks7 22:50 Not Given (Patient Refused): Insulin Regular Human 10 units Sub-Q once ks7 11/15 00:14 Drug: Cipro 500 mg Route: PO; 7 Disposition: 11/16/19 00:04 Discharged to Home. Impression: Hyperglycemia, unspecified, Dehydration, Syncope and collapse, Urinary tract infection, site not specified. - Condition is Stable. - Discharge Instructions: Dehydration, Adult, Hyperglycemia, Syncope, Urinary Tract Infection, Adult. - Prescriptions for Cipro 500 mg Oral Tablet - take 1 tablet by ORAL route every 12 hours for 10 days; 20 tablet. - Medication Reconciliation Form, Thank You Letter, Antibiotic Education, Prescription Opioid Use form. - Follow up: Private Physician; When: As needed; Reason: Recheck today's complaints, Re-evaluation by your physician. - Problem is new. - Symptoms have improved. Signatures: Dispatcher [employer] EDMS Chandana Nelson MD MD rn Acob, Cheryl RN Key Nunez RN RN ks7 Corrections: (The following items were deleted from the chart) 00:15 00:04 11/16/2019 00:04 Discharged to Home. Impression: Hyperglycemia, unspecified; ks7 Dehydration; Syncope and collapse; Urinary tract infection, site not specified. Condition is Stable. Discharge Instructions: Dehydration, Adult, Hyperglycemia, Syncope. Forms are Medication Reconciliation Form, Thank You Letter, Antibiotic Education, Prescription Opioid Use. Follow up: Private Physician; When: As needed; Reason: Recheck today's complaints, Re-evaluation by your physician. Problem is new. Symptoms have improved. rn
[2019-11-16] MEDS ORDERED: CIPROFLOXACIN HCL 500 MG TAB ONE (00:19)
[2019-11-16 00:44] VITALS: TEMP 99
[2019-11-16 00:48] VITALS: BP 146/81; O2SAT 98
--- NOTE | 2019-11-16 11:01 | EKG ---
Test Date: 2019-11-15 Test Time: 20:36:00 Mushroom Grower: JENNIFER MEASUREMENT RESULTS: Intervals: Rate: 97 OK: 150 QRSD: 68 QT: 366 QTc: 464 [place]: P: 66 OK: 150 QRS: 75 T: 75 INTERPRETIVE STATEMENTS: Normal sinus rhythm Normal ECG Compared to ECG 06/25/2019 13:13:00 Right-axis deviation no longer present Prolonged QT interval no longer present Electronically Signed On 11-16-19 11:00:59 CDT by Rogerio Smith
== END 2019-11-16 00:15 | disposition home or self-care (01) ==
LOC: ER 18:47
DX: E11.65 Type 2 diabetes mellitus with hyperglycemia (principal); Z20.828 Contact with and (suspected) exposure to other viral communicable diseases; E86.0 Dehydration; N39.0 Urinary tract infection, site not specified; Z79.4 Long term (current) use of insulin; Z88.5 Allergy status to narcotic agent; Z88.8 Allergy status to other drugs, medicaments and biological substances
CPT/HCPCS: 93005; 87040 ×2; 87088; 85025; 87086; 80048; 36415; 82947; 80076; 84484; 83690; 84145; 83880; 87804 ×2; 70450; 71045; 73560 ×2; U0002; 81003; 81015; 87077; 87186; 99284

== ENCOUNTER 2019-11-23 13:31 | Emergency (ER) | payer OTHER ==
--- NOTE | 2019-11-23 13:49 | EDPHYS ---
Physician Documentation [facility] Name: Melissa De Oliveira Age: 54 yrs Sex: Female : 1965 Arrival Date: 11/23/2019 Time: 13:33 Bed DIS3 Private MD: ED Physician Yves Varghese HPI: 11/22 13:43 This 54 yrs old Female presents to ER via Ambulatory with complaints of ps1 Insect Bite. 13:43 Patient has a wound on the right heel that has been persistent since last Friday. She ps1 is on Cefdinir for a UTI. States that her foot is not improving. Has a scab and small amount of erythema. Her BG usually runs around 120 per patient. Additionally using Bactroban on wound. No fever or systemic symptoms. . 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 - Social history:: Smoking status: Patient denies any tobacco usage or history of. Patient/guardian denies using alcohol, street drugs, tobacco products. ROS: 13:43 Constitutional: Negative for fever, chills, and weight loss, Eyes: Negative for injury, ps1 pain, redness, and discharge, Cardiovascular: Negative for chest pain, palpitations, and edema, Respiratory: Negative for shortness of breath, cough, wheezing, and pleuritic chest pain, Abdomen/GI: Negative for abdominal pain, nausea, vomiting, diarrhea, and constipation, MS/Extremity: Negative for injury and deformity, Neuro: Negative for headache, weakness, numbness, tingling, and seizure. 13:43 Skin: Positive for lesions, ulceration, of the right heel. Exam: 13:43 Constitutional: This is a well developed, well nourished patient who is awake, alert, ps1 and in no acute distress. Head/Face: Normocephalic, atraumatic. Eyes: Pupils equal round and reactive to light, extra-ocular motions intact. Lids and lashes normal. Conjunctiva and sclera are non-icteric and not injected. Cardiovascular: Regular rate and rhythm. No gallops, murmurs, or rubs. Normal PMI, no JVD. No pulse deficits. Respiratory: Lungs have equal breath sounds bilaterally, clear to auscultation and percussion. No rales, rhonchi or wheezes noted. No increased work of breathing, no retractions or nasal flaring. Abdomen/GI: Soft, non-tender, with normal bowel sounds. No distension or tympany. No guarding or rebound. No evidence of tenderness throughout. MS/ Extremity: Pulses equal, no cyanosis. Neurovascular intact. Full, normal range of motion. Neuro: Awake and alert, GCS 15, oriented to person, place, time, and situation. Cranial nerves II-XII grossly intact. Sensory grossly intact. 13:43 Skin: lesion(s), noted, and can be described as erythematous, ulcerated, located on the right heel, erythema appers to localize and no signs of cellulitis at this time. Appears superficial. . Vital Signs: 13:38 BP 103 / 67; Pulse 96; Resp 17; Temp 98.3; Pulse Ox 100% ; Weight 50.35 kg; Height 5 ll1 ft. 4 in. (162.56 cm); Pain 6/10; 13:38 Body Mass Index 19.05 (50.35 kg, 162.56 cm) ll1 MDM: 13:43 Data reviewed: vital signs, nurses notes. Counseling: I had a detailed discussion with ps1 the patient and/or guardian regarding: the historical points, exam findings, and any diagnostic results supporting the discharge/admit diagnosis, the need for outpatient follow up, to return to the emergency department if symptoms worsen or persist or if there are any questions or concerns that arise at home. 13:48 Patient medically screened. ps1 Administered Medications: No medications were administered Disposition: 11/23/19 13:48 Discharged to Home. Impression: Right heel ulcer. - Condition is Stable. - Discharge Instructions: Wound Care. - Prescriptions for Clindamycin HCl 300 mg Oral Capsule - take 1 capsule by ORAL route every 6 hours for 10 days; 40 capsule. - Medication Reconciliation Form, Thank You Letter, Antibiotic Education, Prescription Opioid Use form. - Follow up: Private Physician; When: 2 - 3 days; Reason: Wound Recheck, Recheck today's complaints, Continuance of care. Follow up: Emergency Department; When: As needed; Reason: Fever > 102 F, Worsening of condition. - Problem is new. - Symptoms are unchanged. Signatures: Yves Varghese MD MD ps1 Amadou Castillo RN RN ll1 Corrections: (The following items were deleted from the chart) 13:51 13:48 11/23/2019 13:48 Discharged to Home. Impression: Right heel ulcer. Condition is ll1 Stable. Forms are Medication Reconciliation Form, Thank You Letter, Antibiotic Education, Prescription Opioid Use. Follow up: Private Physician; When: 2 - 3 days; Reason: Wound Recheck, Recheck today's complaints, Continuance of care. Follow up: Emergency Department; When: As needed; Reason: Fever > 102 F, Worsening of condition. Problem is new. Symptoms are unchanged. ps1
--- NOTE | 2019-11-23 13:49 | ER ---
Nurse's Notes [facility] Name: Melissa De Oliveira Age: 54 yrs Sex: Female : 1965 Arrival Date: 11/23/2019 Time: 13:33 Bed DIS3 Private MD: Diagnosis: Right heel ulcer Presentation: 11/22 13:38 Chief complaint: Patient states: Abscess to right posterior heel for 3 days, getting ll1 slowly more painful. States she has been on cefdinir since last week for UTI, UTI is getting better. No fever at home. Coronavirus screen: Client denies travel out of the [place] in the last 14 days. At this time, the client does not indicate any symptoms associated with coronavirus-19. The client reports previous COVID testing was negative. Ebola Screen: Patient denies travel to an Ebola-affected area in the 21 days before illness onset. Initial Sepsis Screen: Does the patient meet any 2 criteria? HR > 90 bpm. Does the patient have a suspected source of infection? Yes: Skin breakdown/wound. Risk Assessment: Do you want to hurt yourself or someone else? Patient reports no desire to harm self or others. Onset of symptoms was November 21, 2019. 13:38 Method Of Arrival: Ambulatory ll1 13:38 Acuity: DEYA 4 ll1 Triage Assessment: 14:21 Bite description: bite sustained to right heel by an unknown animal, animal ll1 information: vaccination(s) is not applicable. General: Appears in no apparent distress. Behavior is calm, cooperative. 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 - Social history:: Smoking status: Patient denies any tobacco usage or history of. Patient/guardian denies using alcohol, street drugs, tobacco products. Screenin:40 Abuse screen: Denies threats or abuse. Nutritional screening: No deficits noted. ll1 Tuberculosis screening: No symptoms or risk factors identified. Fall Risk None identified. Gait- Impaired (20 pts.). Total Muniz Fall Scale indicates No Risk (0-24 pts). Assessment: 13:40 General: Appears in no apparent distress. Behavior is calm, cooperative. Pain: ll1 Complains of pain in right heel Quality of pain is described as aching, Is intermittent. Neuro: No deficits noted. Cardiovascular: No deficits noted. Respiratory: No deficits noted. Derm: Reports abrasion to posterior right heel. Surrounding skin slightly red, no drainage noted. Derm: Skin is intact, Skin is pink, warm \T\ dry. Wound noted right heel Abscess located on right heel is <1cm abrasion has no drainage, is red. Vital Signs: 13:38 BP 103 / 67; Pulse 96; Resp 17; Temp 98.3; Pulse Ox 100% ; Weight 50.35 kg; Height 5 ll1 ft. 4 in. (162.56 cm); Pain 6/10; 13:38 Body Mass Index 19.05 (50.35 kg, 162.56 cm) ll1 ED Course: 13:33 Patient arrived in ED. bp1 13:39 Yves Varghese MD is Attending Physician. ps1 13:40 Triage completed. ll1 13:40 Arm band placed on Patient placed in an exam room, on a stretcher. ll1 13:50 Patient has correct armband on for positive identification. Bed in low position. Call ll1 light in reach. Side rails up X 1. 13:50 No provider procedures requiring assistance completed. Patient did not have IV access ll1 during this emergency room visit. Administered Medications: No medications were administered Outcome: 13:48 Discharge ordered by . ps1 13:51 Patient left the ED. ll1 13:51 Discharged to home ambulatory. ll1 13:51 Condition: stable 13:51 Discharge instructions given to patient, Instructed on discharge instructions, follow up and referral plans. medication usage, wound care, Demonstrated understanding of instructions, follow-up care, medications, wound care, Prescriptions given X 1. Signatures: Yves Varghese MD MD ps1 Amadou Castillo, RN RN ll1 Karen Evans bp1
[2019-11-23 13:55] VITALS: BP 103/67; TEMP 98.3; O2SAT 100
--- OUTSIDE RECORDS SUMMARY | 2019-11-23 13:59 | XMS REPORT | Clinical Summary ---
:1965 Author Organization [facility] Address [address] [place] [address] Care Team Providers Name Role Phone Denae [...] Not on file Results Not on fileafter 11/22/2018
--- OUTSIDE RECORDS SUMMARY | 2019-11-23 14:08 | XMS REPORT | Continuity of Care Document ---
:1965 Author Organization [facility] [employer] Care Team Providers Name Role Phone 71lbs Unavailable Un available Problems Problem Status Onset Classification Date Comments Sourc e Date Reported Radiculopathy, 02/26/20 02/28/2017 [facility] cervical region 17 Hosp ital Hyperglycemia, 02/26/20 03/01/2017 [facility] unspecified 17 Hospital Fever, 02/26/20 03/01/2017 [facility] [facility] unspecified 17 Hospital Displaced 12/28/19 12/30/2016 [place] [facility] unspecified 17 Hospital fracture of right lesser toe(s), initial encounter for closed fracture HURT TOES Active 12/28/[address] ABDOMINAL PAIN Active 02/07/20 [address], [place] EGD Active 02/05/20 [facility] 12 BLOOD SUGAR Active 11/28/19 [place] [...] [address] [place] BLEEDING ABD PAIN Active 01/06/20 [facility] 10 EAR PAIN Active 10/10/19 [facility] [place] [address] [place] UPPER ABDOMINAL Active 09/21/19 [facility] PAIN 10 [place] ABD PAIN, HIGH Active 08/16/19 [facility] SUGAR 10 [place] Abdominal pain Active Problem 02/19/2012 [facility], [place] Cellulitis Active Problem 02/19/2012 [facility] [place] Chest pain Active Problem 02/19/2012 [facility] [place] Hyperglycemia Active Problem 02/19/2012 [facility] [place] UTI - Urinary Active Problem 02/19/2012 tract infection [facility] [place] Diabetes mellitus Active Problem 03/01/2017 [facility] [place] (disorder[facility] Restless legs Active Problem 03/01/2017 [...] G.I. No Longer Cocktail = Active 2016 [place] antacid with Hospital simethicone 22.5 mL - lidocaine viscous 7.5 mL Zofran Notes: (Same Inactive as: Zofran) 2016 [place] MEDICATION Hospital WASTE Product Size: 4 mg Product Wasted: ___ mg Zofran Notes: (Same Inactive as: Zofran) 2016 [place] MEDICATION Hospital WASTE Product Size: 4 mg Product Wasted: ___ mg Morphine Notes: (Same Inactive as:MORPhine 2017 [place] Sulfate) Hospital Lidocaine Notes: Inactive Hydrochloride 10 Preservative 2016 [facility] MG/ML Injectable free. (Same Ho spital Solution as: Xylocaine MPF) Insulin regular 60 units) Inactive WASTE: F/P - 2017 [place] Black; E - Hospital Municipal Trash Bin Stable for 28 days at room temperature Expires in days from Date Sodium Chloride 2,000 mL, 1000 Inactive 0.9% (Bolus) IV ml/hr, Infuse 2017 [facility] Over: 2 hr, Hospital Route: IV, 2,000, Drug form: INJ, ONCE, Priority: STAT, Dosing Weight 49.545 kg, Start date: 02/25/17 20:22:00 [employer], Stop date: 02/25/17 20:22:00 [employer] ibuprofen 800 mg 800 mg = 1 [...] (Same No Longer as: Valium) Active 2016 [facility] Ketorolac 4 days No Longer MEDICATION Active 2016 [place] WASTE Hospital Product Size: 30 mg Product Wasted: ___ mg Ciprofloxacin 500 500 mg = 1 Active MH MG Oral Tablet tab, PO, Q12H, 2017 [facility] [Cipro] for UTI, X 3 Hospital day, # 6 tab, 0 Refill(s), Pharmacy: [facility]/pharmacy #[id number] Humalog 100 4 unit, SUB-Q, Active units/mL TID-Before 2017 [place] Meals, hold Hospital insulin injection if your blood sugar is less than 140 mg/dL., # 10 mL, 0 Refill(s), Pharmacy: [facility]/pharmacy #[id number] pantoprazole 40 40 mg = 1 tab, Active 01/26/ H [facility] Enteric Coated PO, Daily, # 2017 [facility] Tablet [Protonix] 30 tab, 0 Hosp ital Refill(s), Pharmacy: [facility]/pharmacy #[id number] Calcium Carbonate 500 mg = 1 Active 500 MG Chewable tab, PO, TID, 2017 [facility] Tablet # 6 tab, 0 Hospital Refill(s), Pharmacy: [facility]/pharmacy #[id number] Insulin Glargine 15 unit, Active 100 UNT/ML SUB-Q, Daily, 2016 [place] Injectable # 10 mL, 0 Hospital Solution [Lantus] Refill(s), Pharmacy: [facility]/pharmacy #[id number] Calcium Gluconate Notes: WASTE: Inactive F/P - Sink; E 2016 [place] - [facility] Hospital Trash Bin Calcium Carbonate Notes: (Same Inactive As: [facility]) 2017 [place] Calcium Hospital Carbonate 500 mg = 200 mg elemental calcium Dose = mg calcium carbonate ( mg elemental calcium) Insulin Glargine Notes: Same as No Longer 100 UNT/ML Lantus Active 2016 [place] Injectable Solostar PEN Hospital Solution [Lantus] Do not hold insulin without contacting prescriber "single patient use only" WASTE: F/P - Black; E - Municipal Trash Bin Stable for 28 days at room temperature. Expires in days from Date Requip Notes: (Same No Longer as: Requip) Active 2017 [place] [facility] Lyrica Notes: (Same No Longer as: Lyrica) Active 2017 [facility] Calcium Carbonate Notes: (Same Inactive As: Tums) 2017 [place] Calcium Hospital Carbonate 500 mg = 200 mg elemental calcium Dose = mg calcium carbonate ( mg elemental calcium) Protonix Notes: Tablet No Longer should not be Active 2017 [place] chewed or Hospital crushed. (Same as: Protonix) Magnesium Oxide Notes: (Same No Longer H as: Mag-Ox Active 2017 [place] 400) Magnesium Hospital oxide [id number] elemental magnesium Dose=____mg magnesium oxide (___mg elemental magnesium) Ketorolac 4 days No Longer MEDICATION Active 2017 [place] WASTE Hospital Product Size: 30 mg Product Wasted: ___ mg Docusate Notes: (Same No Longer as: Colace) Active 2016 [place] (Do Not Crush) [facility] Insulin Glargine 50 units, No Longer 100 UNT/ML SUB-Q, Daily, Active 2016 [place] Injectable 0 Refill(s) [facility] [...] 60 units) Inactive WASTE: F/P - 2017 [place] Black; E - Hospital Municipal Trash Bin Stable for 28 days at room temperature. Expires in days from Date Ceftriaxone Notes: (Same No Longer As: Rocephin). Active 2017 [place] Use with 100 Hospital mL NS and infuse over 30 min MEDICATION WASTE Product Size: 1000 mg Product Wasted: ___ mg Hydralazine Notes: (Same No Longer as: Active 2016 [place] Apresoline) [facility] Push over 5 minutes Glucagon 1 mg, Route: No Longer IM, Drug form: Active 2016 [place] PDR/INJ, PRN, Hospital Dosing Weight 51.449, kg, PRN Blood Glucose Results, Start date: 01/25/17 1:35:00 CDT, Duration: 30 day, Stop date: 02/24/17 0:34:00 [employer]EE [employer]IST Insulin Lispro 60 units) No Longer WASTE: F/P - Active 2016 [place] Black; E - Hospital Municipal Trash Bin Stable for 28 days at room temperature. Expires in days from Date Dextrose 50% 25 gm, 50 mL, No Longer Syringe Route: IVP, Active 2016 [place] Drug Form: Hospital INJ, Dosing Weight 51.449, kg, PRN, PRN Blood Glucose Results, Start date: 01/25/17 1:35:00 CDT, Duration: 30 day, Stop date: 02/24/17 0:34:00 [employer] Acetaminophen Notes: Do not No Longer exceed 4 Active 2017 [place] gm/day. (Same Hospital as: Tylenol) Acetaminophen 325 Notes: (Same Inactive MG / Hydrocodone as: [place] 2017 [facility] [facility] Bitartrate 5 MG 325/5) Do not H ospital Oral Tablet exceed 4gm/day of acetaminophen. Ondansetron Notes: (Same No Longer as: Zofran) Active 2017 [place] MEDICATION Hospital WASTE Product Size: 4 mg Product Wasted: ___ mg sodium chloride 1,000 mL, No Longer 0.9% 1000 ml INJ Rate: 75 Active 2017 [place] 1,000 mL ml/hr, Infuse Hospital over: 13.3 hr, Route: IV, Dosing Weight 51.449 kg, Total Volume: 1,000, Start date: 01/25/17 1:32:00 CDT, Stop date: 02/24/17 1:31:00 [employer]EE [employer]IST Saline Flush 0.9% Notes: (Same No Longer as: BD Active 2016 [place] Posiflush) Hospital Ketorolac 15 mg, Route: Inactive IV, ONCE, 2016 [place] Dosing Weight Hospital 52.273, kg, Start date: 01/25/17 0:00:00 CDT, Stop date: 01/25/17 0:00:00 CDT Famotidine 20 mg, Route: Inactive IVP, ONCE, 2017 [place] Dosing Weight Hospital 52.273, kg, Priority: STAT, [...] 4 mg, Route: Inactive IVP, Drug 2017 [place] form: INJ, Hospital ONCE, Dosing Weight 52.273, kg, Priority: STAT, Start date: 01/24/17 22:07:00 CDT, Stop date: 01/24/17 22:07:00 CDT Morphine Notes: (Same Inactive as:MORPhine 2017 [place] Sulfate) Hospital Acetaminophen 300 1 - 2 tab, PO, No Longer 12/27 MG / Codeine Q4H, PRN Pain, Active 2016 [facility] Phosphate 30 MG X 2 day, # 30 Ho spital Oral Tablet tab, 0 [Tylenol with Refill(s) Codeine #3] Acetaminophen 325 Notes: (Same Inactive MG / Hydrocodone as: [place] 2016 [place] [facility] Bitartrate 5 MG 325/5) Do not H ospital Oral Tablet exceed 4gm/day [[place] 5/325] of acetaminophen. Sodium Chloride 500 mL, Rate: IV No Longer [facility] Sugar 0.9% (Bolus) IV 500 ml/hr, Active 2011 [facility] 500 mL Infuse over: 1 [...] ketorolac 30 mg, Route: IVP No Longer [facility] Sug ar IVP, Drug Active 2011 [place] form: INJ, ONCE, Dosing Weight 50, kg, Priority: STAT, Start date: 11/28/11 21:51:00, Stop date: 11/28/11 21:51:00 ondansetron 4 mg, Route: IVP No Longer [facility] Hein gar IVP, ONCE, Active 2011 [facility] Dosing Weight 50, kg, Priority: STAT, Start date: 11/28/11 21:51:00, Stop date: 11/28/11 21:51:00 Sodium Chloride 1,000 mL, IVPB No Longer [facility] S ugar 0.9% (Bolus) IV Rate: 1,[address] [facility] 1,000 mL ml/hr, Infuse over: 1 hr, Route: IVPB, kg, Total Volume: 1,000, Bolus Dose, Priority: STAT, Start date: 11/28/11 21:51:00, Duration: 1 doses or times, Stop date: 11/28/11 22:50:00 Saline Flush 0.9% 5 ml, Route: IVP No Longer [facility] Sugar IVP, Drug Active 2011 [place] Form: INJ, kg, PRN, PRN Line Flush, Start date: 11/28/11 21:51:00, Duration: 30 day, Stop date: 12/28/11 21:50:00 [place] 5/325 oral 1-2 tab, PO, PO Active [facility] Sugar tablet Q4-6H, PRN, 2011 tab, Pain, Substitution Allowed, Soft Stop Zofran ODT 4 mg 4 mg, 1 tab, PO Active [facility] Sugar oral tablet, PO, TID, PRN, 2011 disintegrating 10 tab, Nausea and Vomiting, Substitution Allowed morphine Sulfate 4 mg, 2 mL, IVP No Longer [facility] Route: IVP, Active 2011 [facility] Drug form: INJ, ONCE, Priority: STAT, Start date: 10/25/11 0:22:00, Stop date: 10/25/11 0:22:00 diphenhydrAMINE 25 mg, Route: IVP No Longer [place] IVP, ONCE, Active 2011 Priority: STAT, Start date: 10/25/11 0:06:00, Stop date: 10/25/11 0:06:00 morphine Sulfate 4 mg, 2 mL, IVP No Longer [place] 10/24/ M [facility] Route: IVP, Active 2011 [facility] Drug form: INJ, ONCE, Priority: [...] Longer [place] IVP, Drug Active 2011 [facility] Form: INJ, PRN, PRN Line [...] regular 5 unit, 0.05 IVP No Longer [facility] Sugar mL, Route: Active 2011 [facility] IVP, Drug form: SOLN, ONCE, Priority: STAT, Start date: 05/23/11 1:10:00, Stop date: 05/23/11 1:10:00 Visipaque 32,000 mg, 100 IV Active [facility] Suga r mL, Route: IV, 2011 [facility] Drug form: INJ, ONCE, Start date: 05/22/11 23:47:00, Stop date: 05/22/11 23:47:00 Insulin regular 5 unit, 0.05 SUB-Q No Longer [facility] Sugar mL, Route: Active 2011 [facility] SUB-Q, Drug form: SOLN, ONCE, Priority: STAT, Start date: 05/22/11 23:36:00, Stop date: 05/22/11 23:36:00 morphine Sulfate 2 mg, 0.4 mL, IVP No Longer [facility] Sugar Route: IVP, Active 2011 [facility] Drug form: INJ, ONCE, Priority: STAT, Start date: 05/22/11 23:04:00, Stop date: 05/22/11 23:04:00 ondansetron 4 mg, 2 mL, IVP No Longer [facility] Sug ar Route: IVP, Active 2011 [facility] Drug form: INJ, ONCE, Priority: STAT, Start date: 05/22/11 23:04:00, Stop date: 05/22/11 23:04:00 Sodium Chloride 500 mL, Rate: IV No Longer [facility] Sugar 0.9% (Bolus) IV 1,000 ml/hr, Active 2011 [place] [facility] 500 mL Infuse over: 0.5 hr, Route: IV, Total Volume: 500, Bolus dose, Priority: STAT, Start date: 05/22/11 23:04:00, Duration: 1 doses or times, Stop date: 05/22/11 23:33:00 Saline Flush 0.9% 5 ml, Route: IVP No Longer [facility] Sugar IVP, Drug Active 2011 [facility] Form: INJ, PRN, PRN Line Flush, Start date: 05/22/11 23:04:00, Duration: 24 hr, Stop date: 05/23/11 23:03:00 Pyridium 200 mg 200 mg, 1 tab, PO Active [facility] H Sugar oral tablet PO, TID, [address] [facility] tab, Substitution Allowed Cipro 500 mg oral 500 mg, 1 tab, PO Active [facility] Sugar tablet PO, Q12H, [address] [facility] tab, Substitution Allowed, TAB Pyridium 200 mg, 2 tab, PO No Longer [facility] Sug ar Route: PO, Active 2011 [facility] Drug form: TAB, ONCE, Priority: STAT, Start date: 05/07/11 20:03:00, Stop date: 05/07/11 20:03:00 Cipro 500 mg, 2 tab, PO No Longer [facility] Suga r Route: PO, Active 2011 [facility] Drug form: TAB, ONCE, Priority: STAT, Start date: 05/07/11 20:03:00, Stop date: 05/07/11 20:03:00 Cipro 500 mg oral 500 mg, 1 tab, PO Active [facility] Sugar tablet PO, BID, [address] [facility] tab, Substitution Allowed Zofran ODT 4 mg 4 mg, 1 tab, PO Active [facility] oral tablet, PO, TID, PRN, 2011 disintegrating 10 tab, Nausea and Vomiting, Substitution Allowed [place] 10/325 oral 1 tab, PO, PO Active [facility] Sugar tablet Q4-6H, PRN, [address] [facility] tab, as needed for pain, Substitution Allowed, Maintenance hydromorphone 1 mg, 0.5 mL, IVP No Longer [facility] [facility] Route: IVP, Active 2011 [facility] Drug form: INJ, ONCE, Priority: STAT, Start date: 04/19/11 23:38:00, Stop date: 04/19/11 23:38:00 Insulin regular 10 unit, 0.1 IVP No Longer [facility] mL, Route: Active 2011 [facility] IVP, Drug form: SOLN, ONCE, [...] magnesium citrate 150 ml, PO, PO Active [place] 03/26[facility] Sugar 8.85% oral liquid ONCE, 300 ml, 2010 [place] Substitution Allowed, Maintenance, LIQ MiraLax oral 17 gm, PO, PO Active [place] 03/26[facility] Sugar powder for Daily, 255 gm, 2010 [place] reconstitution Substitution Allowed, PDR/REC Phenergan 25 mg 25 mg, 1 tab, PO Active [place] Sugar oral tablet PO, Q6H, PRN, 2010 [place] 15 tab, Nausea, Substitution Allowed Vicodin 5/500 1 tab, PO, PO Active [place] Suga r oral tablet Q4-6H, PRN, 2010 tab, for Pain, Substitution Allowed, Maintenance Sodium Chloride 1,000 mL, IV No Longer [place] S ugar 0.9% (Bolus) IV Rate: 1,000 Active 2010 1,000 mL ml/hr, Infuse over: 1 hr, Route: IV, Total Volume: 1,000, Bolus Dose, Priority: STAT, Start date: 03/25/11 21:24:00, Duration: 1 doses or times, Stop date: 03/25/11 22:23:00 Insulin regular 10 unit, 0.1 IVP No Longer [place] 03/26/ H Sugar mL, Route: Active 2010 IVP, Drug form: SOLN, ONCE, Priority: STAT, Start date: 03/25/11 21:16:00, Stop date: 03/25/11 21:16:00 Omnipaque 300 30,000 mg, 100 IV Active [place] Sugar mL, Route: IV, 2010 Drug form: SOLN, ONCE, Start date: 03/25/11 21:15:00, Stop date: 03/25/11 21:15:00 Saline Flush 0.9% 5 ml, Route: IVP No Longer [place] Sugar IVP, Drug Active 2010 Form: INJ, PRN, PRN Line Flush, Start date: 03/25/11 20:19:00, Duration: 30 day, Stop date: 04/24/11 20:18:00 ondansetron 4 mg, 2 mL, IVP No Longer [place] Sug ar Route: IVP, Active 2010 Drug form: INJ, ONCE, Priority: STAT, Start date: 03/25/11 20:19:00, Stop date: 03/25/11 20:19:00 morphine Sulfate 4 mg, 0.8 mL, IVP No Longer [place] Sugar Route: IVP, Active 2010 Drug form: [...] [place] Route: PO, Active 2010 [facility] Drug form: TAB, [id number], Start date: 02/11/11 11:00:00, Duration: 30 day, Stop date: 03/12/11 23:00:00 magnesium oxide 400 mg, 1 tab, PO No Longer [place] [facility] Route: PO, Active 2010 [facility] Drug form: TAB, Daily, Start date: 02/11/11 9:00:00, Duration: 30 day, Stop date: 03/12/11 9:00:00 Lantus 70 unit, SUB-Q No Longer [place] [facility] Route: SUB-Q, Active 2010 [facility] Drug form: SOLN, Daily, Start date: 02/11/11 9:00:00, Duration: 30 day, Stop date: 03/12/11 9:00:00 Levemir FlexPen 70 unit, 0.7 SUB-Q No Longer [facility] mL, Route: Active 2010 SUB-Q, Drug form: INJ, Daily, Start date: 02/11/11 9:00:00, Duration: 30 day, Stop date: 03/12/11 9:00:00 Saline Flush 0.9% 5 ml, Route: IVP No Longer [place] [facility] IVP, Drug Active 2010 [facility] Form: INJ, Q12H, Start date: [...] Route: PO, Active 2010 Drug form: TAB, [id number], Start date: 02/11/11 3:00:00, Duration: 30 day, [...] Sliding Scale - mL, Route: Active 2010 [facility] Low SUB-Q, Drug form: SOLN, Sliding Scale, PRN Blood Glucose Results, Start date: 02/11/11 2:05:00, Duration: 30 day, Stop date: 03/13/11 1:04:00 glucagon 1 mg, Route: IM No Longer [place] [facility] IM, Drug form: Active 2010 [facility] PDR/INJ, PRN, PRN Blood Glucose Results, Start date: 02/11/11 2:05:00, Duration: 30 day, Stop date: 03/13/11 1:04:00 Dextrose 50% 25 gm, 50 ml, IVP No Longer [place] [facility] Syringe Route: IVP, Active 2010 [facility] Drug Form: INJ, PRN, PRN Blood Glucose Results, Start date: 02/11/11 2:05:00, Duration: 30 day, Stop date: 03/13/11 1:04:00 Saline Flush 0.9% 5 ml, Route: IVP No Longer [place] [facility] IVP, Drug Active 2010 [facility] Form: INJ, PRN, PRN Line Flush, Start date: 02/11/11 2:05:00, Duration: 30 day, Stop date: 03/13/11 1:04:00 nitroglycerin SL 0.4 mg, 1 tab, SL No Longer [place] [facility] Tab Route: SL, Active 2010 [facility] Drug form: TAB, Q5Min, PRN Chest Pain, Start date: 02/11/11 2:05:00, Duration: 3 doses or times, Stop date: Limited # of times morphine Sulfate 2 mg, 0.4 mL, IVP No Longer [place] [facility] Route: IVP, Active 2010 [facility] Drug form: INJ, Q15Min, PRN Chest Pain, Start date: 02/11/11 2:05:00, Duration: 2 doses or times, Stop date: Limited # of times acetaminophen 650 mg, 2 tab, PO No Longer [facility] Route: PO, Active 2010 [facility] Drug form: TAB, Q4H, PRN Headache, Start date: 02/11/11 2:05:00, Duration: 30 day, Stop date: 03/13/11 2:04:00 diphenhydrAMINE 25 mg, 1 tab, PO No Longer [place] [facility] Route: PO, Active 2010 [facility] Drug form: TAB, Bedtime, PRN [...] [place] [facility] Route: PO, Active 2010 [facility] Drug form: TAB, Q8H, PRN Nausea & Vomiting, Start date: 02/11/11 2:05:00, Duration: 30 day, Stop date: 03/13/11 2:04:00 temazepam 15 mg, 1 cap, PO No Longer [place] Sug ar Route: PO, Active 2010 [facility] Drug form: CAP, Bedtime, PRN Insomnia, Start date: 02/11/11 2:05:00, Duration: 30 day, Stop date: 03/13/11 2:04:00 aspirin 325 mg 325 mg, 1 tab, PO No Longer [place] [facility] tablet Route: PO, Active 2010 [facility] Drug form: TAB, ONCE, Start date: 02/11/11 2:05:00, Stop date: 02/11/11 2:05:00 morphine Sulfate 2 mg, 0.4 mL, IVP No Longer [place] 02/11 [place] Route: IVP, Active 2010 [facility] Drug form: INJ, ONCE, Priority: STAT, Start date: 02/11/11 0:37:00, Stop date: 02/11/11 0:37:00 Visipaque 48,000 mg, 150 IV No Longer [place] Sugar mL, Route: IV, Active 2010 [facility] Drug form: INJ, ONCE, Start [...] H Sugar ointment Route: TOP, Active 2010 [facility] Drug Form: OINT, ONCE, STAT, Start date: 02/10/11 21:47:00, Stop date: 02/10/11 21:47:00 nitroglycerin 0.4 mg, 1 tab, SL No Longer [place] [facility] Route: SL, Active 2010 [facility] Drug form: TAB, Q5Min, PRN Chest Pain, (Hold if SBP < = 90 mmHg or if < = 100mmHg with symptomatic dizziness), Start date: 02/10/11 21:47:00, Duration: 3 doses or times, Stop date: Limited # of times morphine Sulfate 2 mg, Route: IVP No Longer [place] [facility] IVP, ONCE, Active 2010 [facility] Priority: STAT, Start date: 02/10/11 21:47:00, Stop date: 02/10/11 21:47:00 Saline Flush 0.9% 5 ml, Route: IVP No Longer [place] 02/11 [place] IVP, PRN, PRN Active 2010 [facility] Line Flush, Start date: 02/10/11 21:47:00, Duration: 30 day, Stop date: 03/12/11 20:46:00 aspirin 325 mg 325 mg, 1 tab, PO No Longer [place] [facility] tablet, enteric Route: PO, Active 2010 [facility] coated Drug form: ECTAB, Daily, Start date: 01/16/11 9:00:00, Duration: 30 day, Stop date: 02/14/11 9:00:00 Requip 1 mg, 1 tab, PO No Longer [place] [facility] Route: PO, Active 2010 [facility] Drug form: TAB, Bedtime, Start date: 01/15/11 21:00:00, Duration: 30 day, Stop date: 02/13/11 21:00:00 Nitrostat 0.4 mg 1 tab, SL, SL Active [facility] S ug[place] sublingual tablet Q5Min, PRN, [address] [place] [address] [place] tab, Chest Pain, Substitution Allowed metoprolol 25 mg 12.5 mg, PO, PO Active [facility] Sugar oral tablet Q12H, 30 tab, 2010 Substitution Allowed, TAB aspirin 325 mg 9,750 mg, 30 PO Active [facility] S ugar tablet, enteric tab, PO, 2010 coated Daily, 30 tab, Substitution Allowed, ECTAB metoprolol 12.5 mg, 0.5 PO No Longer [place] Sug ar tab, Route: Active 2010 PO, Drug form: TAB, Q12H, Priority: NOW, Start date: 01/15/11 10:36:00, Duration: 30 day, Stop date: 02/14/11 9:00:00 Fioricet oral 1 tab, PO, PO Active [facility] 01/15[facility] Suga r tablet Q4H, PRN, 2010 tab, Headache, Substitution Allowed, Maintenance, TAB Fioricet 1 tab, Route: PO No Longer [place] 01/15[facility] Suga r PO, Drug Form: Active 2010 TAB, Q4H, PRN Headache, Start date: 01/15/11 9:15:00, Duration: 30 day, Stop date: 02/14/11 9:14:00 aspirin 81 mg 81 mg, 1 tab, PO No Longer [facility] Sugar tablet, enteric Route: PO, Active 2010 coated Drug form: ECTAB, Daily, Start date: 01/15/11 9:00:00, Duration: 30 day, Stop date: 02/13/11 9:00:00 Requip 1 mg oral 1 mg, 1 tab, PO Active [place] tablet PO, Bedtime, 2010 Substitution Allowed ibuprofen 400 mg 400 mg, 1 tab, PO No Longer [place] 01/15[facility] Sugar oral tablet Route: PO, Active 2010 Drug form: TAB, Q8H, Start date: 01/15/11 0:00:00, Duration: 30 day, Stop date: 02/13/11 16:00:00 Saline Flush 0.9% 5 ml, Route: IVP No Longer [place] 01/15[facility] Sugar IVP, Drug Active 2010 Form: INJ, Q12H, Start date: 01/14/11 21:00:00, Duration: 30 day, Stop date: 02/13/11 9:00:00 Levemir FlexPen 70 unit, 0.7 SUB-Q No Longer [place] 01/15/ H [place] mL, Route: Active 2010 [facility] SUB-Q, Drug form: INJ, Bedtime, Start date: 01/14/11 21:00:00, Duration: 30 day, Stop date: 02/12/11 21:00:00 Lantus 70 unit, SUB-Q No Longer [place] Route: SUB-Q, Active 2010 [facility] Bedtime, Start date: 01/14/11 21:00:00, Duration: 30 day, Stop date: 02/12/11 21:00:00 glucagon 1 mg, Route: IM No Longer [place] IM, Drug form: Active 2010 [facility] PDR/INJ, PRN, PRN Blood Glucose Results, Start date: 01/14/11 19:22:00, Duration: 30 day, Stop date: 02/13/11 19:21:00 Insulin (Novolog) 6 unit, 0.06 SUB-Q No Longer [place] Sliding Scale - mL, Route: Active 2010 [facility] Very High SUB-Q, Drug form: [...] Longer [place] IVP, Drug Active 2010 [facility] Form: INJ, PRN, PRN Line [...] regular 5 unit, 0.05 IVP No Longer [place] [facility] Sugar mL, Route: Active 2010 IVP, [...] 400 mg 1 tab, PO, PO Active [facility] S ugar oral tablet Q4H, PRN, 2010 tab, Pain, Substitution Allowed acetaminophen-hyd 1 tab, PO, PO Active [facility] Sugar rocodone 500 mg-5 Q4-6H, PRN, 2010 [...] type Reported Ritalin Assertion Drug Active allergy [facility] Immunizations No Data Provided for This Section Results Order Name Results Value Reference Date Interpretation Comments Nely rce Range BACTERIAL Strep Negative Negative 02/26 [place] - SEROLOGY pneumoniae (02/25/17 9:02 PM) /2016 Hospital Ag BACTERIAL Source Strep Cerebral 02/26 [facility] SER[facility] Spinal /2016 Hospital Fluid BODY Tube Num CSF 1 02/26 [place] FLUIDS /2016 Hospital BODY Clarity CSF Clear Clear 02/26 [facility] [place] FLUIDS (02/25/17 9:02 PM) /2016 [facility] BODY Color CSF Colorless Colorless 02/26 [place] FLUIDS (02/25/17 9:02 PM) /2016 [facility] BODY Supernat CSF Colorless Colorless 02/26 [facility] FLUIDS (02/25/17 9:02 PM) /2016 [facility] BODY WBC CSF 2 0 - 53 02/26 [facility] [place] FLUIDS /2016 Hospital BODY RBC CSF 1 0 - 03 02/26 [facility] [place] FLUIDS /2016 Hospital BODY RBC CSF 1 0 - 03 02/26 [place] FLUIDS /2017 Hospital BODY WBC CSF 2 0 - 53 02/26 [place] FLUIDS /2016 Hospital BODY Supernat CSF Colorless Colorless 02/26 [facility] FLUIDS (02/25/17 9:02 PM) /2016 [facility] BODY Clarity CSF Clear Clear 02/26 [place] FLUIDS (02/25/17 9:02 PM) /2016 [facility] BODY Tube Num CSF 4 02/26 [place] FLUIDS /2016 Hospital BODY Color CSF Colorless Colorless 02/26 [place] FLUIDS (02/25/17 9:02 PM) /2016 [facility] BODY Glucose CSF 219 45 - 80 02/26 Result [place] FLUIDS Comment: Hospital Critical Result(s) called to Charlotte Hodge at _02/25/2017 21:45 bybz_. Read back OK.

NOTE: RESULTS autoverfied BODY Protein CSF 55 15 - 45 02/26 [place] FLUIDS /2016 Hospital FUNGAL - Crypto Ag Negative Negative 02/26 [place] SEROLOGY CSF (02/25/17 9:02 PM) /2016 [facility]osp [facility] IMMUNOLOGY VDRL Scr CSF Non Reactive Non 02/26 [place] (02/25/17 9:02 PM) Reactive /2016 Hosp ital [...] curve analysis. MOLECULAR Source HSV Cerebral 02/26 [place] DIAGNOSTIC Spinal /2016 Hospital Fluid VIRAL - [facility] Negative [facility] (02/25/17 9:02 PM[facility] CHEM PANEL A/G Ratio 0.9 0.7 - 1.6 02/26 [facility] CHEM PANEL B/C Ratio 23 6 - 25 02/26 [place] [facility] CHEM PANEL Globulin 4.3 2.7 - 4.2 02/26 [place] [facility] CHEM PANEL AGAP 11.3 10.0 - 02/26 [place] 20.0 [facility] CHEM PANEL eGFR 101 02/26 Result [place] Comment: The Hospital eGFR is calculated using [...] PANEL BUN 16 7 - 22 02/26 [place] [facility] CHEM PANEL ALANINE 17 0 - 65 02/26 [facility] RASE CHEM PANEL Total 8.2 6.4 - 8.4 02/26 [place] [facility] CHEM PANEL Potassium 4.3 3.5 - 5.1 02/26 [facility] /2016 [facility] CHEM PANEL Sodium Lvl 130 135 - 145 02/26 [facility] /2016 [facility] CHEM PANEL Creatinine 0.70 0.50 - 02/26 [place] Lvl 1.40 /2016 Hospital CHEM PANEL Glucose Lvl 340 70 - 99 02/26 [facility] /2016 [facility] CHEM PANEL Calcium Lvl 8.9 8.5 - 10.5 02/26 [facility] /2017 [facility] CHEM PANEL Chloride Lvl 97 95 - 109 02/26 [facility] /2016 [facility] CHEM PANEL CO2 26 24 - 32 02/26 [place] /2017 Hospital CHEM PANEL Alk Phos 158 39 - 136 02/26 [place] /2017 Hospital CHEM PANEL ASPARTATE 16 0 - 37 02/26 [place] TRANSAMINASE [facility] CHEM PANEL Albumin Lvl 3.9 3.5 - 5.0 02/26 [facility] /2016 [facility] CHEM PANEL Lactic Acid 1.8 0.5 - 2.2 02/26 [facility] L[facility] /2016 [facility] HEMATOLOGY Platelet 305 133 - 450 02/26 [place] /2017 Hospital HEMATOLOGY MCV 82.2 80.0 - 02/26 [place] 98.0 /2016 Hospital HEMATOLOGY Hct 37.1 36.0 - 02/26 [place] 48.0 /2016 Hospital HEMATOLOGY MPV 7.4 7.4 - 10.4 02/26 [place] /2017 Hospital HEMATOLOGY RDW 14.1 11.5 - 02/26 [place] 14.5 /2016 Hospital HEMATOLOGY MCH 27.6 27.0 - 02/26 [place] 31.0 /2016 Hospital HEMATOLOGY MCHC 33.6 32.0 - 02/26 [place] 36.0 /2017 Hospital HEMATOLOGY RBC X 10x6 4.52 4.20 - 02/26 [place] 5.40 /2016 Hospital HEMATOLOGY Hgb 12.5 12.0 - 02/26 [place] 16.0 /2016 Hospital HEMATOLOGY WBC X 10x3 [...] Hospital HEMATOLOGY Segs 53.4 45.0 - 02/26 [place] 75.0 /2016 Hospital HEMATOLOGY Lymphocytes 39.1 20.0 [...] AND UA 0.2 0.1 - 1.0 02/26 [place] STOOL Urobilinogen /2016 Hospital URINE AND UA Nitrite Negative Negative 02/26 [facility] (02/25/17 7:42 PM) [facility] URINE AND UA Bili Negative Negative 02/26 [place] STOOL *NA* /2016 Hospital (02/25/17 7:42 PM) URINE AND UA Ketones Negative Negative 02/26 [facility] *NA* /2016 [facility] (02/25/17 7:42 PM) URINE AND UA Bacteria Many /HPF None Seen 02/26 [facility] /HPF /2016 Hospital URINE AND UA WBC 0-2 /HPF None Seen 02/26 [place] STOOL /HPF /2016 Hospital URINE AND UA RBC 0-2 /HPF 0 - 2 02/26 [place] STOOL /2016 Hospital URINE AND UA Leuk Est Negative Negative 02/26 [facility] (02/25/17 7:42 PM) /2016 [facility] URINE AND UA Sq Epi Few /LPF Few /LPF 02/26 [place] STOOL Hospital URINE AND UA Blood Negative Negative 02/26 [place] STOOL (02/25/17 7:42 PM) [facility] URINE AND UA Glucose >=1000 Negative 02/26 [place] STOOL mg/dL mg/dL /2016 Hospital URINE AND UA Protein Negative Negative 02/26 [facility] (02/25/17 7:42 PM) [facility]pi [facility] URINE AND UA pH 6.0 5.0 - 8.0 02/26 [place] STOOL /2016 Hospital URINE AND UA Spec Grav 1.010 <=1.030 02/26 [facility] URINE AND UA Color Yellow Yellow 02/26 [place] STOOL *NA* /2016 Hospital (02/25/17 7:42 PM) URINE AND UA Turbidity Slight Cloudy Clear 02/26 [place] STOOL (02/25/17 7:42 PM) Hospi [facility] VIRAL - Influ B Negative Negative 02/26 [place] SEROLOGY (02/25/17 7:42 PM) [facility]osp ital VIRAL - Influ A Negative Negative 02/26 [place] SEROLOGY (02/25/17 7:42 PM) [facility]osp [facility] CHEM PANEL eGFR 121 01/26 [place] Comment: The Hospital eGFR is calculated using [...] Alk Phos 165 39 - 136 01/26 [place] [facility] CHEM PANEL B/C Ratio 12 6 - 25 01/26 [place] [facility] CHEM PANEL Globulin 3.3 2.7 - 4.2 01/26 [place] [facility] CHEM PANEL Albumin Lvl 2.4 3.5 - 5.0 01/26 [facility] CHEM PANEL Total 5.7 6.4 - 8.4 01/26 [place] [facility] CHEM PANEL AGAP 9.7 10.0 - 01/26 [place] 20.0 [facility] CHEM PANEL Glucose Lvl 261 70 - 99 01/26 [facility] CHEM PANEL Calcium Lvl 7.4 8.5 - 10.5 01/26 [facility] CHEM PANEL A/G Ratio 0.7 0.7 - 1.6 01/26 [facility] CHEM PANEL Creatinine 0.40 0.50 - 01/26 [facility] [place] Lvl 1.40 [facility] CHEM PANEL BUN 5 7 - 22 01/26 [place] 2017 Hospital CHEM PANEL ASPARTATE 37 0 - 37 01/26 [place] TRANSAMINASE [facility] CHEM PANEL ALANINE 44 0 - 65 01/26 [place] AMINOTRANSFE [facility] RASE CHEM PANEL Potassium 3.7 3.5 - 5.1 01/26 [facility] CHEM PANEL Sodium Lvl 137 135 - 145 01/26 [facility] CHEM PANEL CO2 25 24 - 32 10 [place] [facility] CHEM PANEL Chloride Lvl 106 95 - 109 01/26 [facility] CARDIAC Troponin-I <0.02 0.00 - 01/25 [place] ENZYMES 0.40 [facility] PARATHYROI Ca Norm WB 0.99 1.05 - 01/25 [place] D PROFILE 1. [facility] PARATHYROI Ca Ion WB 1.01 1.05 - 01/25 [place] D PROFILE 1. Hospital CHEM PANEL Albumin Lvl 2.6 3.5 - 5.0 01/25 [facility] CHEM PANEL eGFR 112 01/25 Result [place] Comment: The Hospital eGFR is calculated using [...] CHEM PANEL Creatinine 0.50 0.50 - 01/25 [place] Lvl 1.40 [facility] CHEM PANEL Sodium Lvl 135 135 - 145 01/25 [facility] CHEM PANEL Potassium 3.6 3.5 - 5.1 01/25 [facility] CHEM PANEL CO2 25 24 - 32 01/25 [place] [facility] CHEM PANEL Chloride Lvl 105 95 - 109 01/25 [facility] CHEM PANEL AGAP 8.6 10.0 - 01/25 [place] 20.0 [facility] CHEM PANEL Calcium Lvl 6.9 8.5 - 10.5 01/25 [facility] Comment: Hospital Critical Result(s) called to uyen martinez_ at _01/25/2017 15:47 by_bz. Read back OK. CHEM PANEL Glucose Lvl 263 70 - 99 01/25 [facility] CHEM PANEL BUN 8 7 - 22 01/25 [place] [facility] CHEM PANEL Phosphorus 2.7 2.5 - 4.5 01/25 [facility] CHEM PANEL eGFR 106 01/25 Result [place] Comment: The Hospital eGFR is calculated using [...] CHEM PANEL Creatinine 0.60 0.50 - 10 [place] Lvl 1.40 [facility] CHEM PANEL BUN 9 7 - 22 01/25 [place] [facility] CHEM PANEL Glucose Lvl 405 70 - 99 01/25 [facility] Comment: [facility] Critical Result(s) called to Dung Mullins at 01/25/2017 04:39 by CV. Read back OK. CHEM PANEL AGAP 12.5 10.0 - 01/25 [place] 20.0 [facility] CHEM PANEL Potassium 3.5 3.5 - 5.1 01/25 [facility] CHEM PANEL Chloride Lvl 102 95 - 109 01/25 [facility] CHEM PANEL CO2 23 24 - 32 01/25 [place] [facility] CHEM PANEL Calcium Lvl 7.1 8.5 - 10.5 01/25 [facility] CHEM PANEL Sodium Lvl 134 135 - 145 01/25 [facility] CHEM PANEL Magnesium 1.7 1.8 - 2.4 01/25 [facility] HEMATOLOGY MPV 7.4 7.4 - 10.4 01/25 [place] [facility] HEMATOLOGY RDW 13.6 11.5 - 01/25 [place] 14.5 [facility] HEMATOLOGY Platelet 244 133 - 450 01/25 [place] 2017 Hospital HEMATOLOGY MCHC 33.4 32.0 - 01/25 [place] 36.0 [facility] HEMATOLOGY MCV 82.5 80.0 - 01/25 [place] 98.0 [facility] HEMATOLOGY MCH 27.6 27.0 - 01/25 [place] 31.0 [facility] HEMATOLOGY Hgb 10.7 12.0 - 01/25 [place] 16.0 [facility] HEMATOLOGY Hct 32.0 36.0 - 01/25 [place] 48.0 [facility] HEMATOLOGY WBC X 10x3 5.5 3.7 - 10.4 01/25 [facility] HEMATOLOGY RBC X 10x6 3.88 4.20 - 01/25 [place] 5.40 [facility] HEMATOLOGY Monocytes 7.2 2.0 - [...] Hospital HEMATOLOGY Segs 55.0 45.0 - 01/25 [place] 75.0 Hospital SPECIAL Hgb A1C >16.0 % <=5.6 % 01/25 [place] CHEMISTRY Hospital URINE AND UA Sq Epi Occasional Few /LPF 01/25 [facility] STOOL /LPF /2016 Hospital URINE AND UA WBC 11-20 /HPF None Seen 01/25 [facility] /HPF /2016 Hospital URINE AND UA Bacteria Moderate None Seen 01/25 [facility] /HPF /HPF /2016 Hospital URINE AND UA RBC 0-2 /HPF 0 - 2 01/25 [place] STOOL /2016 Hospital URINE AND UA Leuk Est Negative Negative 01/25 [facility] (01/24/17 11:54 PM) /2016 [facility] URINE AND UA Nitrite Positive Negative 01/25 [facility] *ABN* /2016 Hospital (01/24/17 11:54 PM) URINE AND UA Blood Negative Negative 01/25 [place] STOOL (01/24/17 11:54 PM) [facility]osp [facility] URINE AND UA Bili Negative Negative 01/25 [place] STOOL *NA* /2016 Hospital (01/24/17 11:54 PM) URINE AND UA Glucose >=1000 Negative 01/25 [place] STOOL mg/dL mg/dL /2016 Hospital URINE AND UA Protein Negative Negative 01/25 [facility] (01/24/17 11:54 PM) [facility]osp [facility] URINE AND UA 0.2 0.1 - 1.0 01/25 [place] STOOL Urobilinogen /2016 Hospital URINE AND UA Ketones Negative Negative 01/25 [facility] *NA* /2016 Hospital (01/24/17 11:54 PM) URINE AND UA pH 5.5 5.0 - 8.0 01/25 [place] STOOL /2016 Hospital URINE AND UA Spec Grav <=1.005 <=1.030 01/25 [facility] *NA* /2016 Hospital (01/24/17 11:54 PM) URINE AND UA Color Yellow Yellow 01/25 [place] STOOL *NA* /2016 Hospital (01/24/17 11:54 PM) URINE AND UA Turbidity Clear Clear 01/25 [facility] (01/24/17 11:54 PM) [facility]osp [facility] CARDIAC Total CK 62 12 - 191 01/25 [place] ENZYMES Hospital CARDIAC CK MB <1.0 0.5 - 3.6 01/25 [place] [facility]YMES [facility] CARDIAC Troponin-I <0.02 0.00 - 01/25 [place] ENZYMES 0.40 Hospital CARDIAC CK-MB INDEX <1.6 0.0 - 2.5 01/25 [place] [facility]YMES [facility] CHEM PANEL ASPARTATE 14 0 - 37 01/25 [place] TRANSAMINASE Hospital CHEM PANEL Bili Total 0.5 0.2 - 1.3 01/25 [facility] CHEM PANEL ALANINE 37 0 - 65 01/25 [place] AMINOTRANSFE [facility] RASE CHEM PANEL Alk Phos 222 39 - 136 01/25 [place] [facility] CHEM PANEL A/G Ratio 0.7 0.7 - 1.6 01/25 [facility] CHEM PANEL Globulin 4.7 2.7 - 4.2 01/25 [place] [facility] CHEM PANEL Albumin Lvl 3.5 3.5 - 5.0 01/25 [facility] CHEM PANEL B/C Ratio 16 6 - 25 01/25 [place] 2017 [facility] CHEM PANEL Total 8.2 6.4 - 8.4 01/25 [place] [facility] CHEM PANEL Lipase Lvl 168 73 - 393 01/25 [facility] 2017 [facility] HEMATOLOGY Hgb 13.7 12.0 - 01/25 [place] 16.0 [facility] HEMATOLOGY Hct 41.6 36.0 - 01/25 [place] 48.0 Hospital HEMATOLOGY MCV 83.6 80.0 - 01/25 [place] 98.0 /2016 Hospital HEMATOLOGY MCH 27.5 27.0 - 01/25 [place] 31.0 /2017 Hospital HEMATOLOGY MCHC 32.9 32.0 - 01/25 [place] 36.0 /2016 Hospital HEMATOLOGY RDW 13.6 11.5 - 10 [place] 14.5 Hospital HEMATOLOGY Platelet 314 133 - 450 01/25 [place] /2017 Hospital HEMATOLOGY MPV 8.1 7.4 - 10.4 01/25 [place] /2017 Hospital HEMATOLOGY WBC X 10x3 5.8 3.7 - 10.4 01/25 [facility] /2017 [facility] HEMATOLOGY RBC X 10x6 4.97 4.20 - 01/25 [place] 5.40 /2016 Hospital HEMATOLOGY Monocytes # 0.4 [...] Hospital HEMATOLOGY Segs 59.9 45.0 - 01/25 [place] 75.0 /2016 Hospital HEMATOLOGY Lymphocytes 31.7 20.0 - 01/25 [facility] 40.0 [facility] BEDSIDE Comment1 Notify 02/05 NA GLUCOSE KIRIT/ /2011 [facility] TESTING BEDSIDE Gluc POC 293 70 - 99 02/05 HI <sup>1</sup>I GLUCOSE [facility] nterpretive [facility] TESTING Data: Upper Reportable Limit: 200 [...] values reflect the clinical guidelines
of the [place] [employer]. CHEMISTRY Chloride Lvl 98 95 [...] values reflect the clinical guidelines
of the [place] [employer]. CHEMISTRY Chloride Lvl 100 95 [...] - 99 10/24 CRIT <sup>3</sup>I [place] GLUCOSE [facility] [place]pretive [place] TESTING Data: Upper Reportable Limit: 200 mg/dL. BEDSIDE Gluc POC 273 65 - 110 05/23 [place] <sup>1</sup>I [facility] [place] [facility] Data: Upper Reportable Limit: 200 mg/dL. BEDSIDE Comment1 Notify 05/23 NA [place] [facility]UCOSE RN/ [place] TESTING BEDSIDE Gluc POC >400 65 - 110 05/23 CRIT <sup>2</sup>I [facility] [place] [facility] Data: Upper [...] on the clinical recommendatio ns of the [place] [employer]. CHEMISTRY BUN 12 7 - [...] on the clinical recommendatio ns of the [place] [employer]. CHEMISTRY Creatinine 0.8 0.5 - [...] on the clinical recommendatio ns of the [place] [employer]. CHEMISTRY Lipase Lvl 171 73 [...] [place] (03/25/2011 20:00:00) [place] URIN[place]YS[place] UA [place] Occasional /HPF None Seen 03/26 ABN [...] on the clinical recommendatio ns of the [place] [employer]. CHEMISTRY BUN 11.0 7 - [...] gar (02/10/2011 22:26:00) ?? [place] URINALYSIS UA [place] Yeast Occasional /HPF >None Seen 02/11 ABN [...] on the clinical recommendatio ns of the [place] [employer]. CHEMISTRY Sodium Lvl 131.0 135 [...] - 110 01/15 HI <sup>1</sup>I [place] GLUCOSE [facility] [place]pret[place] TESTING Data: Upper Reportable Limit: 200 mg/dL. BEDSIDE Comment1 Notify 01/15 NA [place] [facility]UCOSE RN/MD [place] TESTING BEDSIDE Comment1 Notify 01/15 NA [place] GLUCOSE RN/[facility] [place] TESTING BEDSIDE Gluc POC 88.0 65 - 110 01/15 Normal <sup>2</sup>I [place] GLUCOSE [facility] nterpretive [place] TESTING Data: Upper Reportable Limit: 200 mg/dL. BEDSIDE Comment1 Notify 01/15 NA [place] GLUCOSE RN/[place] TESTING BEDSIDE Gluc POC 70.0 65 - 110 01/15 Normal <sup>3</sup>I [place] GLUCOSE [facility] nterpretive [place] TESTING Data: Upper [...] on the clinical recommendatio ns of the [place] [employer]. CHEMISTRY LDL 96.0 0 - [...] on the clinical recommendatio ns of the [place] [employer]. CHEMISTRY BUN 9.0 7 - [...] 27.0 - 01/14 Normal [place] 31.0 /2010 [facility] HEMATOLOGY Hgb 13.2 12.0 - 10 Normal [place] 16.0 /2010 [facility] HEMATOLOGY RBC 4.6 4.20 - 01/14 Normal [place] 5.40 /2010 [facility] HEMATOLOGY Hct 38.9 36.0 - 01/14 Normal [place] 48.0 /2010 [facility] HEMATOLOGY MCV 84.6 81.0 - 01/14 Normal [place] 99.0 /2010 [facility] HEMATOLOGY WBC 5.6 3.7 - 10.4 10 Normal [place] /2010 [facility] HEMATOLOGY PT 13.6 12.0 - 01/14 Normal [place] 14.7 /2010 [facility] HEMATOLOGY PTT 30.2 22.9 - 10 Normal <sup>10</sup> Sean r 35.8 [place] [place] Data: Heparin Therapeutic Range: 57 - 92 Second[facility] HEMATOLOGY INR 1.04 0.85 - 01/14 Normal <sup>8</sup>I [facility] r 1.[address] [facility] Data: RECOMMENDED RANGES FOR PROTIME INR: 2.0-3.0 for most medical and surgical thromboemboli c states. 2.5-3.5 for artificial heart valves and recurrent embolism. INR SHOULD BE USED ONLY FOR PATIENTS ON STABLE ANTICOAGULANT THERAPY. HEMATOLOGY D-Dimer 1.5 01/14 NA <sup>9</sup>I [facility] r nterpretive [facility] Data: In DIC, quantitative D-Dimer [...] and I concur with the interpretation. 02/25/2017 [facility] Clinical Indication: Headache, fever, neck pain Comparison: [...] No mass, hemorrhage, or subacute stroke. SL: [id number] Spine cervical wo CT cervical spine without contrast 02/25/2017 [facility] contrast CT Clinical Indication: - neck pain [...] ABDOMEN AND PELVIS WITH CONTRA ST 01/24/2017 [facility] contrast CT Clinical Indication: Acute l eft [...] series DX RIGHT FOOT 3 VIEW 12/26/2016 [facility] HISTORY: Toe injury. No comparisons. FINDINGS: There [...] Comments Source Systolic (mm Hg) 111 02/26/2017 [facility] Diastolic (mm Hg) 64 02/26/2017 [facility] Respitory Rate 16 02/26/2017 [facility] Temperature Oral (F) 97.6 F 02/26/2017 [facility] Heart Rate 85 02/26/2017 [facility] Respitory Rate 16 02/26/2017 [facility] Systolic (mm Hg) 114 02/26/2017 [facility] Diastolic (mm Hg) 66 02/26/2017 [facility] Heart Rate 82 02/26/2017 [facility] Temperature Oral (F) 98.8 F 02/26/2017 [facility] Weight 49.545 02/26/2017 [facility] BMI Calculated 18.75 02/26/2017 [facility] Height 162.56 cm 02/26/2017 [facility] Systolic (mm Hg) 109 02/26/2017 [facility] Diastolic (mm Hg) 65 02/26/2017 [facility] 84 02/26/2017 [facility] Respitory Rate 14 02/26/2017 [facility] Respitory Rate 18 02/25/2017 [place] [facility] Systolic (mm Hg) 114 02/25/2017 [place] [facility] Diastolic (mm Hg) 63 02/25/2017 [facility] Temperature Oral (F) 98.2 F 02/25/2017 [facility] Heart Rate 78 02/25/2017 [facility] BMI Calculated 18.75 02/25/2017 [facility] Weight 49.545 02/25/2017 [facility] Height 162.56 cm 02/25/2017 [facility] Heart Rate 77 02/25/2017 [facility] Respitory Rate 18 02/25/2017 [facility] Temperature Oral (F) 97.8 F 02/25/2017 [facility] Systolic (mm Hg) 147 02/25/2017 [facility] Diastolic (mm Hg) 80 02/25/2017 [facility] Weight 49.659 02/25/2017 [facility] Height 167.64 cm 02/25/2017 [facility] Temperature Oral (F) 97.8 F 02/25/2017 [facility] BMI Calculated 17.67 02/25/2017 [facility] Systolic (mm Hg) 145 02/25/2017 [place] [facility] Diastolic (mm Hg) 80 02/25/2017 [facility] Respitory Rate 18 02/25/2017 [facility] Heart Rate 77 02/25/2017 [facility] Temperature Oral (F) 98.5 F 01/26/2017 [facility] Heart Rate 87 01/26/2017 [facility] Respitory Rate 20 01/26/2017 [place] [facility] Systolic (mm Hg) 116 01/26/2017 [place] [facility] Diastolic (mm Hg) 69 01/26/2017 [facility] Heart Rate 79 01/26/2017 [place] [facility] Respitory Rate 18 01/26/2017 [facility] Temperature Oral (F) 98.4 F 01/26/2017 [facility] Systolic (mm Hg) 129 01/26/2017 [place] [facility] Diastolic (mm Hg) 80 01/26/2017 [place] [facility] Temperature Oral (F) 98.1 F 01/26/2017 [facility] Heart Rate 78 01/26/2017 [facility] Systolic (mm Hg) 120 01/26/2017 [facility] Diastolic (mm Hg) 69 01/26/2017 [facility] Respitory Rate 20 01/26/2017 [facility] Height 157.48 cm 01/25/2017 [facility] Weight 51.449 01/25/2017 [facility] BMI Calculated 20.75 01/25/2017 [facility] Weight 52.273 01/25/2017 [facility] BMI Calculated 19.78 01/25/2017 [facility] Height 162.56 cm 01/25/2017 [facility] Systolic (mm Hg) 121 12/27/2016 [facility] Diastolic (mm Hg) 81 12/27/2016 [facility] Respitory Rate 16 12/27/2016 [facility] Heart Rate 82 12/27/2016 [facility] Temperature Oral (F) 98.3 F 12/27/2016 [facility] Temperature Oral (F) 98.4 F 12/27/2016 [facility] Respitory Rate 18 12/27/2016 [facility] Systolic (mm Hg) 126 12/27/2016 [facility] Diastolic (mm Hg) 81 12/27/2016 [facility] BMI Calculated 18.92 12/27/2016 [facility] Weight 50 12/27/2016 [facility] Heart Rate 89 12/27/2016 [facility] Height 162.56 cm 12/27/2016 [facility] Height 162.56 cm 02/06/2012 [place] Weight 47.273 02/06/2012 [facility] Height 162.56 cm 11/29/2011 [place] Weight 50.000 11/29/2011 [place] Height 162.56 cm 10/25/2011 [place] Weight 54.545 10/25/2011 [place] Height 162.56 cm 05/23/2011 [place] Weight 50.000 05/23/2011 [place] Temperature Oral (F) 98.5 F 05/08/2011 [place] Diastolic (mm Hg) 57 05/08/2011 [place] and Systolic (mm Hg) 107 05/08/2011 [place] Heart Rate 57 05/08/2011 [place] Respitory Rate 16 05/08/2011 [facility] [place] Weight 50.000 05/08/2011 [facility] [place] Height 162.56 cm 05/08/2011 [place] Temperature Oral (F) 98.6 F 05/08/2011 [facility] [place] Diastolic (mm Hg) 70 05/08/2011 [facility] [place] and Systolic (mm Hg) 127 05/08/2011 [facility] [place] Heart Rate 83 05/08/2011 [facility] [place] Respitory Rate 16 05/08/2011 [facility] [place] Respitory Rate 18 04/20/2011 [place] Heart Rate 79 04/20/2011 [facility] [place] Diastolic (mm Hg) 75 04/20/2011 [facility] [place] [facility] Systolic (mm Hg) 119 04/20/2011 [facility] [place] Diastolic (mm Hg) 97 04/20/2011 [facility] [place] [facility] Heart Rate 80 04/20/2011 [facility] [place] Systolic (mm Hg) 148 04/20/2011 [facility] [place] Respitory Rate 20 04/20/2011 [place] Weight 50.000 04/20/2011 [facility] [place] Systolic (mm Hg) 122 04/20/2011 [place] Temperature Oral (F) 98.0 F 04/20/2011 [place] Respitory Rate 18 04/20/2011 [place] Heart Rate 79 04/20/2011 [facility] [place] Diastolic (mm Hg) 75 04/20/2011 [place] and Temperature Oral (F) 98.0 F 03/26/2011 [place] Respitory Rate 18 03/26/2011 [place] Heart Rate 69 03/26/2011 [facility] [place] Systolic (mm Hg) 112 03/26/2011 [place] Diastolic (mm Hg) 60 03/26/2011 [facility] [place] and Height 160.02 cm 03/26/2011 [facility] [place] Weight 53.636 03/26/2011 [place] Temperature Oral (F) 99.0 F 03/26/2011 [place] Diastolic (mm Hg) 67 03/26/2011 [facility] [place] Systolic (mm Hg) 115 03/26/2011 [facility] [place] Respitory Rate 16 03/26/2011 [place] Heart Rate 75 03/26/2011 [facility] [place] Diastolic (mm Hg) 51.0 02/11/2011 [facility] [place] Respitory Rate 14.0 02/11/2011 [facility] [place] Systolic (mm Hg) 100.0 02/11/2011 [facility] [place] Heart Rate 59.0 02/11/2011 [place] Temperature Oral (F) 98.1 F 02/11/2011 [facility] [place] Diastolic (mm Hg) 54.0 02/11/2011 [place] Systolic (mm Hg) 102.0 02/11/2011 [place] Temperature Oral (F) 97.5 F 02/11/2011 [place] Heart Rate 61.0 02/11/2011 [facility] [place] Respitory Rate 16.0 02/11/2011 [place] Height 162.56 cm 02/11/2011 [facility] [place] Weight 56.96 02/11/2011 [facility] [place] Respitory Rate 18.0 02/11/2011 [place] Temperature Oral (F) 98.0 F 02/11/2011 [place] Heart Rate 61.0 02/11/2011 [place] Systolic (mm Hg) 111.0 02/11/2011 [place] Diastolic (mm Hg) 61.0 02/11/2011 [place] Weight 52.273 02/11/2011 [place] Height 162.56 cm 02/11/2011 [place] Diastolic (mm Hg) 59.0 01/15/2011 [place] Systolic (mm Hg) 105.0 01/15/2011 [place] Temperature Oral (F) 97.0 F 01/15/2011 [place] Heart Rate 59.0 01/15/2011 [place] Respitory Rate 18.0 01/15/2011 [place] Temperature Oral (F) 97.2 F 01/15/2011 [place] Respitory Rate 18.0 01/15/2011 [place] Heart Rate 71.0 01/15/2011 [place] Diastolic (mm Hg) 59.0 01/15/2011 [place] Systolic (mm Hg) 106.0 01/15/2011 [place] Respitory Rate 18.0 01/15/2011 [place] Systolic (mm Hg) 110.0 01/15/2011 [place] Heart Rate 62.0 01/15/2011 [place] Temperature Oral (F) 97.9 F 01/15/2011 [place] Diastolic (mm Hg) 58.0 01/15/2011 [place] Height 162.56 cm 01/15/2011 [place] Weight 56.818 01/15/2011 [place] Height 162.56 cm 01/14/2011 [place] Weight 50.0 01/14/2011 [place] Systolic (mm Hg) 115.0 12/22/2010 [place] Diastolic (mm Hg) 78.0 12/22/2010 [place] Peripheral Pulse Rate 74.0 12/22/2010 [place] Respitory Rate 16.0 12/22/2010 [place] Height 162.56 cm 12/22/2010 [place] Weight 52.273 12/22/2010 [place] Temperature Oral (F) 98.2 F 12/22/2010 [place] Respitory Rate 16.0 12/22/2010 [place] Peripheral Pulse Rate 75.0 12/22/2010 [place] Diastolic (mm Hg) 77.0 12/22/2010 [place] Systolic (mm Hg) 125.0 12/22/2010 [place] En[place] Location Location Encounter Encounter Reason Attending ADM MD Stat Source Details Type Number For Provider Date Date Visit Emergency [id number] ABD TRA PSYK 08/15 08/16 Acti ve [facility] 8 PAIN, /2009 [place] Emergency [id number] UPPER BE 09/20 09/21 [facility] ABDOMINA [place] /2009 [place] Emergency [id number] EAR PAIN TRA PSYK 10/09 10/09 [facility] [place] OU [id number] CHEST TAJUDDIN 10/31 11/02 Active [place] 1 PAIN CONSUELO /2009 [place] Emergency [id number] ABDOMINA TROY 01/03 01/03 Active [place] 2 L PAIN ROW[place] /2009 [place] OU [id number] ABDOMINA CHRISTOPHER 01/05 01/07 Activ e [place] 4 L PAIN GONZALEZ /2009 [place] Emergency [id number] [place] TRA PSYK 07/21 07/21 Acti ve [place] 6 HIGH,VAG /2010 [place] BLEEDING Emergency [id number] FACIAL TROY 10/07 10/07 Active [place] 7 AND NECK ROW[place] /2010 [place] Inpatient [id number] FACIAL TARAH 10/09 10/13 Active [facility] 8 NECK BRIDGES /2010 [place] IS Emergency [id number] MOISE MONTEMAYOR 12/22 12/22 Disc harg [facility] ed [place] OU [id number] CHEST DEE CROCKETT 01/14 01/15 Active [facility] 0 PAIN /2010 [place] OU [id number] CHEST DEE CROCKETT 02/11 02/11 [facility], /2010 [place] S,HYPERG LYCEMIA, UTI Emergency [id number] LOWER LIZY 03/25 03/26 [facility] [place] 2 ABD WISEMAN /2010 [place] HIGH [place] Emergency [id number] RIGHT LIZY 04/19 04/20 Active [facility] 3 ABDOMINA WISEMAN /2011 [place] BLOOD IN URINE Emergency [id number] BLEEDING TROY 05/07 05/07 Active [facility] 4 / RT ROWAN /2011 [place] PAIN Emergency [id number] ABDOMINA VIMI SHOEMAKER 05/22 05/23 Ac tive [facility] 5 L PAIN /2011 [place] BLOOD [place] Emergency [id number] LEFT VIMI SHOEMAKER 10/23 10/24 Acti ve [facility] 6 LOWER /2011 [place] L PAIN Emergency [id number] BLOOD VIMI SHOEMAKER 11/27 11/27 Acti ve [facility] 7 SUGAR /2011 [place] PROBLEM [place] YEIMY [id number] [place] 02/05 02/05 Discharg [facility] 9 BAVISHI ed [facility] Outpatient [id number] ABDOMINA GUIDO 02/16 Active [facility] [id number] Moise Montemayor 12/27 12/27 JUSTO [place] [address] [facility] [id number] Greg 01/25 01/26 Jona 1 Kayla /2016 [place] [facility] Emergency [id number] Rudolph 02/25 02/25 [place] 2 Pilar Jr [facility] [id number] Rudolph 02/26 02/26 [place] 3 [place] [facility] Outpatient [id number] ABD PAIN MESHA Activ e [facility] 3 [facility] Procedures Procedure Code Date Perfomer Comments Source Appendectomy [id number] [facility] Cholecystectomy [id number] [facility] Partial hysterectomy [id number] [facility] Assessment and Plan Assessment and Plan Date Source Extracted from:Title: Progress Note * 01/26/2017 [facility] Author: Marie June MD Date: 01/25/17 Impression and Plan The patient was seen and examined by me with the resident/COMPUTER FORENSIC EXAMINER/PA and I agree with the History/Exam documented. [...]
--- OUTSIDE RECORDS SUMMARY | 2019-11-23 14:14 | XMS REPORT | Continuity of Care Document ---
:1965 Author Organization [facility] t Address [address] [place] [address] Care Team Providers Name Role Phone Sharpless [...] 2017-02-03 Memoria 9-15 10:25:00 l HURT 00:00: [place] TOES 00 Active 12/27/2016 [facility] ABDOMINAL Diagnosis Active 2011-042012-02-17 Memoria PAIN 0-26 10:42:00 l 00:00: [place] ABDOMINAL 00 PAIN Active 02/07/2012 [facility], [facility] EGD Diagnosis Active 2011-042012-02-06 Mem oria 0-24 10:10:00 l EGD 06:00: [place] 00 Active 02/05/2012 [facility] BLOOD Diagnosis Active 2011-12-11 Mem oria SUGAR 8-16 11:15:00 l PROBLEM BLOOD 15:00: Jona SUGAR 00 PROBLEM Active 11/28/2011 [place] LEFT LOWER Diagnosis Active 2011-12-11 Memoria ABDOMINAL 7-12 10:48:00 l PAIN LEFT 08:00: Jona LOWER 00 ABDOMINAL PAIN Active 10/24/2011 [place] ABDOMINAL Diagnosis Active 2011-12-11 Memoria PAIN HIGH 2-08 11:09:00 l BLOOD 22:00: Jona SUGAR ABDOMINAL 00 PAIN HIGH BLOOD SUGAR Active 05/22/2011 [place] BLEEDING/ Diagnosis Active 2011-12-11 Memoria RT SIDE 1-24 11:06:00 l PAIN 08:00: Jona BLEEDING/ 00 RT SIDE PAIN Active 05/07/2011 [place] RIGHTABDOM Diagnosis Active 2011-04-19 Memoria INAL PAIN 1-06 20:37:00 l . AND 00:00: Jona BLOOD IN RIGHTABDOM 00 URINE INAL PAIN . AND BLOOD IN URINE Active 04/19/2011 [place] RIGHT Diagnosis Active 2011-12-20 Mem oria ABDOMINAL 1-06 13:03:00 l PAIN, RIGHT 00:00: [place] BLOOD IN ABDOMINAL 00 URINE PAIN, BLOOD IN URINE Active 04/19/2011 [place] LOWER ABD Diagnosis Active 2010-042011-12-11 Memoria PAIN/ HIGH 2-12 11:02:00 l SUGAR LOWER 00:00: Jona ABD PAIN/ 00 HIGH SUGAR Active 03/25/2011 [place] CHEST PAIN Diagnosis Active 2010-042011-02-11 Memoria AND 0-30 01:56:00 l TIGHTNESS CHEST 18:00: Jorge Luis n PAIN AND 00 TIGHTNESS Active 02/10/2011 [place] CHEST Diagnosis Active 2010-042011-02-15 Mem oria PAIN, 0-30 21:58:00 l DIZZINESS, CHEST 18:00: Eugenia nn HYPERGLYCE PAIN, 00 EB, UTI DIZZINESS, HYPERGLYCE EB, UTI Active 02/10/2011 [place] CHEST PAIN Diagnosis Active 2010-042011-01-15 Memoria 0-03 16:36:00 l CHEST 15:00: [place] PAIN 00 Active 01/14/2011 [place] RIGHT KNEE Diagnosis Active 2010-12-22 Memoria 1ST 3 TOES 9-10 13:04:00 l NUMB RIGHT 11:00: [place] KNEE 1ST 3 00 TOES NUMB Active 12/22/2010 [place] FACIAL Diagnosis Active 2010-12-22 Mem oria NECK 10-08 13:04:00 l CELLULITIS FACIAL 00:00: Herm ava NECK 00 CELLULITIS Active 10/08/2010 [place] FACIAL AND Diagnosis Active 2010-12-22 Memoria NECK PAIN 10-07 13:04:00 l FACIAL 06:00: Jona AND NECK 00 PAIN Active 10/07/2010 [place] SUGAR Diagnosis Active 2010-12-22 Mem oria HIGH,VAGIN 07-21 13:04:00 l AL SUGAR 00:00: Jona BLEEDING HIGH,VAGIN 00 AL BLEEDING Active 07/21/2010 [place] ABD PAIN Diagnosis Active 2010-12-22 M emoria 01-05 13:04:00 l ABD PAIN 00:00: Jorge Luis n 00 Active 01/05/2010 [facility] EAR PAIN Diagnosis Active 2010-12-22 M emoria 10-09 13:04:00 l EAR PAIN 19:00: Jorge Luis n 00 Active 10/09/2009 [place] UPPER Diagnosis Active 2010-12-22 Mem oria ABDOMINAL 09-20 13:04:00 l PAIN UPPER 14:00: Jona ABDOMINAL 00 PAIN Active 09/20/2009 [place] ABD PAIN, Diagnosis Active 2010-12-22 Memoria HIGH SUGAR - 13:04:00 l ABD 00:00: Jona PAIN, HIGH 00 SUGAR Active 08/15/2009 [place] Abdominal Problem Active 2012-02-19 Me moria pain 09:23:16 l [place] Abdominal pain Active Problem 02/19/2012 [facility], [place] Cellulitis Problem Active 2012-02-19 M emoria 09:23:16 l [place] Cellulitis Active Problem 02/19/2012 [facility], [place] Chest pain Problem Active 2012-02-19 M emoria 09:23:16 l Chest [place] pain Active Problem 02/19/2012 [facility], [place] Hyperglyce Problem Active 2012-02-19 M emoria eb 09:23:16 l Jona Hyperglyce eb Active Problem 02/19/2012 [facility], [place] UTI - Problem Active 2012-02-19 Memor ia Urinary 09:23:16 l tract UTI - [place] infection Urinary tract infection Active Problem 02/19/2012 [facility] [place] Diabetes Problem Active 2017-03-01 Mem oria mellitus 04:36:24 l (disorder) Diabetes He rmann mellitus (disorder) Active Problem 03/01/2017 [facility] Restless Problem Active 2017-03-01 Mem oria legs 04:36:24 l (disorder) Restless He rmann legs (disorder) Active Problem 03/01/2017 [facility] Abdominal Problem Active 2017-03-01 Me moria pain 04:36:24 l (finding) [place] Abdominal pain (finding) Active Problem 03/01/2017 [facility] [...] 13:04:00 l CHEST Jona PAIN NOS Active [place] CELLULITIS Diagnosis Active 2010-12-22 Memoria NOS 13:04:00 l Jona CELLULITIS NOS Active [place] Hyperglyce Problem 2016-2017-03-01 2017-03-01 Memoria eb, -14 04:36:24 04:36:24 l unspecifie 06:00: Jorge Luis n d Hyperglyce 00 eb, unspecifie d 02/25/2017 03/01/2017 [facility] Fever, Problem 2016-2017-03-01 2017-03-01 M emoria unspecifie - 04:36:24 04:36:24 l d Fever, 06:00: [place] unspecifie 00 d 02/25/2017 03/01/2017 [facility] [...] toe(s), fracture initial encounter for closed fracture 12/30/2016 [facility] Allergies, Adverse Reactions, Alerts Allergy Allergy Status Severity Reaction(s) Onset Inactive Treating Comm ents Source Name Type Date Date Clinician Hectorph Propensi [facility] - adverse [facility] reaction [facility] Ritalin Ritalin Active Emmanuelle Tenorio Social History Social Habit Start Date Stop Date Quantity Comments Source Sex Assigned At [facility] Social History 2017-02-03 2017-02-03 Ulises cleaning 15:24:44 15:24:44 Smoking Status Start Date Stop Date Source Never smoker [facility] Medications Ordered Filled Start Stop Current Ordering Indication Dosage Frequency Signature Comments Components Source Medication Medication Date Date Medication? Clinician (SIG) Name Name rOPINIRole 2018 Yes 1mg [id number] Take [address] [facility] (REQUIP) 1 3-26 [id number] by mouth 3 [facility] - MG tablet 11:54: 3D (three) Medic al 47 times Center daily. pregabalin Yes 50mg [id number] Take [address] [facility] (LYRICA) 50 3-26 [id number] by mouth 3 [facility] - MG capsule 11:54: 3D (three) Medi steven 47 times Center daily. GI cocktail 2016-04 No Notes: Nirmal feliz 1-15 G.I. l 05:06: Cocktail = Jona 00 antacid with simethicon e 22.5 mL - lidocaine viscous 7.5 mL Zofran 2016-04 No Notes: Memoria 1-15 (Same as: l 04:41: Zofran) [place] 00 MEDICATION WASTE Product Size: 4 mg Product Wasted: ___ mg Zofran 2016-04 No Notes: Memoria 1-15 (Same as: l 02:34: Zofran) [place] 00 MEDICATION WASTE Product Size: 4 mg Product Wasted: ___ mg Morphine 2016-04 No Notes: Memoria 1-15 (Same l 02:34: as:MORPhin Jona 00 e Sulfate) Lidocaine 2016-04 Yes Notes: Memori a Hydrochlori 1-15 Preservati l de 10 MG/ML 02:33: ve free. He rmann Injectable 00 (Same as: Solution Xylocaine MPF) Insulin 2016-04 No 60 Memoria regular 1-15 units) l 02:23: WASTE: F/P Jona 00 - Black; E - Municipal Trash Bin Stable for 28 days at room temperatur e Expires in days from ____Date Sodium 2016-04 No 2,000 mL, Memori a Chloride 1-15 1000 l 0.9% 02:22: ml/hr, Jona (Bolus) IV 00 Infuse Over: 2 hr, Route: IV, 2,000, Drug form: INJ, ONCE, Priority: STAT, Dosing Weight 49.545 kg, Start date: 02/25/17 20:22:00 [employer], Stop date: 02/25/17 20:22:00 [employer] ibuprofen 2016-04 Yes 800 mg = [...] [Flexeril] Refill(s) Valium 2016-04 No Notes: Memoria 14 (Same as: l 05:48: Valium) Ketorolac 2016-04 No 4 days Memor ia -14 l 05:48: MEDICATION WASTE Product Size: 30 mg Product Wasted: ___ mg Ciprofloxac 2016-04 Yes 500 mg = 1 Memoria in 500 MG 0-15 tab, PO, l Oral Tablet 14:57: Q12H, for H ermann [Cipro] 00 UTI, X 3 day, # 6 tab, 0 Refill(s), Pharmacy: [facility] #[id number] Humalog 100 2016-04 Yes 4 unit, Mem oria units/mL 0-15 SUB-Q, l 14:48: TID-Before Meals, hold insulin injection if your blood sugar is less than 140 mg/dL., # 10 mL, 0 Refill(s), Pharmacy: [facility] #[id number] pantoprazol 2016-04 Yes 40 mg = 1 M emoria e 40 MG 0-15 tab, PO, l Enteric 14:48: Daily, # Jorge Luis n Coated 00 30 tab, 0 Tablet Refill(s), [Protonix] Pharmacy: [facility] #[id number] Calcium 2016-04 Yes 500 mg = 1 Nirmal feliz Carbonate 0-15 tab, PO, l 500 MG 14:48: TID, # 6 [place] Chewable 00 tab, 0 Tablet Refill(s), Pharmacy: [facility] #[id number] Insulin 2016-04 Yes 15 unit, Memori a Glargine 0-15 SUB-Q, l 100 UNT/ML 14:48: Daily, # Her pugh Injectable 00 10 mL, 0 Solution Refill(s), [Lantus] Pharmacy: [facility] #[id number] Calcium 2016-04 No Notes: Memoria Gluconate [...] Memoria 0-15 (Same as: l 02:00: Lyrica) [place] 00 Calcium 2016-04 No Notes: Memoria Carbonate 0-14 (Same As: l 22:40: Tums) [place] 00 Calcium Carbonate 500 mg = 200 mg elemental calcium Dose = mg calcium carbonate ( mg elemental calcium) Protonix 2016-04 No Notes: Memoria 0-14 Tablet l 22:00: should not Jona 00 be chewed or crushed. (Same as: Protonix) Magnesium 2016-04 No Notes: Memori a Oxide 0-14 (Same as: l 22:00: Mag-Ox [place] 00 400) Magnesium oxide 802gn=048x g elemental magnesium Dose=____m g magnesium oxide (___mg elemental magnesium) Ketorolac 2016-04 No 4 days Memor ia 0-14 l 17:02: MEDICATION Jona 00 WASTE Product Size: 30 mg Product Wasted: [...] Lispro 0-14 units) l 09:50: WASTE: F/P [place] 00 - Black; E - Municipal Trash [...] Duration: 30 day, Stop date: 02/24/17 0:34:00 [employer] Insulin 2016-04 No 60 Memoria Lispro [...] Duration: 30 day, Stop date: 02/24/17 0:34:00 [employer] Acetaminoph 2016-04 No Notes: Do M emoria en 0-14 not exceed l 06:32: 4 gm/day. [place] 00 (Same as: Tylenol) Acetaminoph 2016-04 No Notes: Nirmal feliz en 325 MG / 0-14 (Same as: l Hydrocodone 06:32: [place] Eugenia nn Bitartrate 00 325/5) Do 5 MG Oral not exceed Tablet 4gm/day of acetaminop hen. Ondansetron 2016-04 No Notes: Nirmal feliz 0-14 (Same as: l 06:32: Zofran) [place] MEDICATION WASTE Product Size: 4 mg Product Wasted: ___ mg sodium 2016-04 No 1,000 mL, Memori a chloride 0-14 Rate: 75 l 0.9% 1000 06:32: ml/hr, Jorge Luis n ml INJ 00 Infuse 1,000 mL over: 13.3 hr, Route: IV, Dosing Weight 51.449 kg, Total Volume: 1,000, Start date: 01/25/17 1:32:00 CDT, Stop date: 02/24/17 1:31:00 [employer] Saline 2016-04 No Notes: Memoria Flush 0.9% 0-14 (Same as: l 06:32: BD Jona Posiflush) Ketorolac 2016-04 No 15 mg, Memori [...] Chloride 0-14 3000 l 0.9% 03:15: ml/hr, [place] (Bolus) IV 00 Infuse Over: 1 hr, Route: IV, 3,000, Drug form: INJ, ONCE, Priority: STAT, Dosing Weight 52.273 kg, Start date: 01/24/17 22:15:00 CDT, Duration: 1 doses or times, Stop date: 01/24/17 22:15:00 CDT Sodium 2017- No 500 mL, Memoria Chloride 0-14 500 ml/hr, l 0.9% 03:09: Infuse [place] (Bolus) IV 00 Over: 1 hr, Route: IV, 500, Drug form: INJ, ONCE, Priority: STAT, Dosing Weight 52.273 kg, Start date: 01/24/17 22:09:00 CDT, Duration: 1 doses or times, Stop date: 01/24/17 22:09:00 CDT Zofran 2016-04 No 4 mg, Memoria 0-14 Route: l 03:07: IVP, Drug [place] 00 form: INJ, ONCE, Dosing Weight 52.273, kg, Priority: STAT, Start date: 01/24/17 22:07:00 CDT, Stop date: 01/24/17 22:07:00 CDT Morphine 2016-04 No Notes: Memoria 0-14 (Same l 02:12: as:MORPhin Jona 00 e Sulfate) Acetaminoph No 1 - 2 tab, Memoria en 300 MG / 12-27 PO, Q4H, l Codeine 05:54: PRN Pain, Eugenia nn Phosphate 00 X 2 day, # 30 MG Oral 30 tab, 0 Tablet Refill(s) [Tylenol with Codeine #3] Acetaminoph No Notes: Nirmal feliz en 325 MG / -15 (Same as: l Hydrocodone 04:47: [place] Eugenia nn Bitartrate 00 325/5) Do 5 MG Oral not exceed Tablet 4gm/day of [[place] acetaminop 5/325] hen. insulin Yes QD Inject [...] Insulin No Vimi 7 unit, Memoria regular 11-28ma Route: l 02:51: IVP, ONCE, Dosing Weight [...] No Vimi 1,000 mL, Memori a Chloride 11-28 Rate: l 0.9% 02:51: 1,000 Jona (Bolus) IV 00 ml/hr, 1,000 mL Infuse over: 1 hr, Route: IVPB, kg, Total Volume: 1,000, Bolus Dose, Priority: STAT, Start date: 11/28/11 21:51:00, Duration: 1 doses or times, Stop date: 11/28/11 22:50:00 Saline No Vimi 5 ml, Memoria Flush 0.9% 11-28ma Route: l 02:51: IVP, Drug Form: INJ, kg, PRN, PRN Line Flush, Start date: 11/28/11 21:51:00, Duration: 30 day, Stop date: 12/28/11 21:50:00 [place] 5/325 Yes Juan 1-2 tab, M emoria oral tablet 7-13 Keith PO, Q4-6H, l 06:12: Yeaton PRN, 15 [place] 25 tab, Pain, Substituti on Allowed, Soft [...] Keith Rate: l 0.9% 03:06: Yeaton 1,000 [place] (Bolus) IV 00 ml/hr, 1,000 mL Infuse [...] Roche Route: l 07:52: IVP, ONCE, Jona Start date: 05/23/11 1:52:00, Stop date: 05/23/11 1:52:00 Insulin 2011-0 No Vimi 5 unit, Memoria regular 2-09 Roche 0.05 mL, l 07:10: Route: Jona 00 IVP, Drug form: SOLN, ONCE, Priority: STAT, Start date: 05/23/11 1:10:00, Stop date: 05/23/11 1:10:00 Visipaque 2011-0 Yes Vimi 32,000 mg, Me moria 2-09 Roche 100 mL, l 05:47: Route: IV, Jona Drug form: INJ, ONCE, Start date: 05/22/11 23:47:00, Stop date: 05/22/11 23:47:00 Insulin 2011-0 No Vimi 5 unit, Memoria regular 2-09 Roche 0.05 mL, l 05:36: Route: [place] 00 SUB-Q, Drug form: SOLN, ONCE, Priority: STAT, Start date: 05/22/11 23:36:00, Stop date: 05/22/11 23:36:00 morphine 2011-0 No Vimi 2 mg, 0.4 Nirmal feliz Sulfate 2-09 Roche mL, Route: l 05:04: IVP, Drug Jona 00 form: INJ, ONCE, Priority: STAT, Start date: 05/22/11 23:04:00, Stop date: 05/22/11 23:04:00 ondansetron 2011-0 No Vimi 4 mg, 2 Mem oria 2-09 Roche mL, Route: l 05:04: IVP, Drug [place] 00 form: INJ, ONCE, Priority: STAT, Start [...] tab, PO, l tablet 02:07: Q12H, 28 [place] 41 tab, Substituti on Allowed, TAB Pyridium 2011-0 No Sonal 200 mg, 2 Me moria 1-25 Raulito tab, l 02:03: Route: PO, Jona Drug form: TAB, ONCE, Priority: STAT, Start date: 05/07/11 20:03:00, Stop date: 05/07/11 20:03:00 Cipro 2011-0 No Sonal 500 mg, 2 Memor ia 1-25 Raulito tab, l 02:03: Route: PO, [place] Drug form: TAB, ONCE, Priority: STAT, Start date: 05/07/11 20:03:00, Stop date: 05/07/11 20:03:00 Cipro 500 2011-0 Yes Juan 500 mg, 1 Me moria mg oral 04-20 Keith tab, PO, l tablet 06:55: Yeaton BID, 20 Jorge Luis n 31 tab, Substituti on Allowed Zofran ODT Yes Juan 4 mg, 1 Mem oria 4 mg oral 04-20 Keith tab, PO, l tablet, 06:55: Yeaton TID, PRN, Her pugh disintegrat 29 10 tab, ing Nausea and Vomiting, Substituti on Allowed [place] Yes Juan 1 tab, PO, Memor ia [...] Keith Rate: l 0.9% 03:30: Yeaton 1,000 [place] (Bolus) IV 00 ml/hr, 1,000 mL Infuse over: 1 hr, Route: IV, Total Volume: 1,000, Bolus Dose, Priority: STAT, Start date: 04/19/11 21:30:00, Duration: 1 doses or times, Stop date: 04/19/11 22:29:00 Saline 2011-0 No Juan 5 ml, Memoria Flush 0.9% 1-07 Keith Route: l 03:30: Yeaton IVP, Drug [...] 2011-0 No Juan 30 mg, Memor ia 04-20 Keith Route: l 03:30: Yeaton IVP, ONCE, Eugenia nn 00 Priority: STAT, Start date: 04/19/11 21:30:00, Stop date: 04/19/11 21:30:00 hydromorpho 2011-0 No Juan 1 mg, Nirmal feliz ne 04-20 Keith Route: l 03:30: Yeaton IVP, ONCE, Eugenia nn 00 Priority: STAT, Start date: 04/19/11 21:30:00, Stop date: 04/19/11 21:30:00 magnesium 2010-04 Yes Mila 150 ml, Me moria citrate 2-13 [place] Phelps PO, ONCE, l 8.85% oral 05:57: 300 ml, Herm ava liquid 30 Substituti on Allowed, Maintenanc e, LIQ MiraLax 2010-04 Yes Mila 17 gm, PO, M emoria oral powder 2-13 [place] Phelps Daily, 255 l for 05:57: gm, [place] reconstitut 18 Substituti ion on Allowed, PDR/REC Phenergan 2010-04 Yes Mila 25 mg, 1 M emoria 25 mg oral 2-13 [place] Phelps tab, PO, l tablet 05:57: Q6H, PRN, Jorge Luis n 09 15 tab, Nausea, Substituti on Allowed Vicodin 2010-04 Yes Mila 1 tab, PO, M emoria 5/500 oral 2-13 [place] Phelps Q4-6H, l tablet 05:57: PRN, 24 [place] 05 tab, for Pain, Substituti on Allowed, [...] Zay Phelps 0.1 mL, l 03:16: Route: Jona 00 IVP, Drug form: SOLN, ONCE, Priority: STAT, Start date: 03/25/11 21:16:00, Stop date: 03/25/11 21:16:00 Omnipaque 2010-04 Yes Mila 30,000 mg, Memoria 300 2-13 Zay Phelps 100 mL, l 03:15: Route: IV, [place] 00 Drug form: SOLN, ONCE, Start date: 03/25/11 21:15:00, Stop date: 03/25/11 21:15:00 Saline 2010-04 No Mila 5 ml, Memoria Flush 0.9% 2-13 [place] Phelps Route: l 02:19: IVP, Drug Form: INJ, PRN, PRN Line Flush, Start date: 03/25/11 20:19:00, Duration: 30 day, Stop date: 04/24/11 20:18:00 ondansetron 2010-04 No Mila 4 mg, 2 Memoria 2-13 Zay Phelps mL, Route: l 02:19: IVP, Drug form: INJ, ONCE, Priority: STAT, Start date: 03/25/11 20:19:00, Stop date: 03/25/11 20:19:00 morphine 2010-04 No Mila 4 mg, 0.8 M emoria Sulfate 2-13 Zay Phelps mL, Route: l 02:19: IVP, Drug form: INJ, ONCE, Priority: STAT, Start date: 03/25/11 20:19:00, Stop date: 03/25/11 20:19:00 nitroglycer 2010-04 No 0.4 mg, 1 M emoria in 0.4 mg 0-31 tab, SL, l sublingual 17:47: Q5Min, Eugenia nn tablet 03 PRN, as needed for chest pain, Substituti on Allowed aspirin 81 2010-04 Yes 1 tab, PO, M emoria mg tablet, 0-31 Daily, l chewable 17:29: tab, [place] 44 Substituti on Allowed, CHEWTAB Cipro 2010-04 No Dk 250 mg, 1 Memori a 0-31 Ari tab, l 16:00: Jonathan Route: PO, Herm ava 00 Drug form: TAB, [id number], Start date: 02/11/11 11:00:00, Duration: 30 day, Stop date: 03/12/11 23:00:00 magnesium 2010-04 No Dakota 400 mg, 1 M emoria oxide 0-31 Minhvu Victoriano tab, l 14:00: [place] Route: PO, [place] 00 Drug form: TAB, Daily, Start date: 02/11/11 9:00:00, Duration: 30 day, Stop date: 03/12/11 9:00:00 Lantus 2010-04 No Dk 70 unit, Memori a 0-31 Ari Route: l 14:00: Jonathan SUB-Q, Jona 00 Drug form: SOLN, Daily, Start date: 02/11/11 9:00:00, Duration: 30 day, Stop date: 03/12/11 9:00:00 Levemir 2010-04 No Dk 70 unit, Memor ia FlexPen 0-31 Ari 0.7 mL, l 14:00: Jonathan Route: [place] 00 SUB-Q, Drug form: INJ, Daily, Start [...] moria tartrate 0-31 Ari tab, l 14:00: Jonathan Route: PO, Herm ava 00 Drug [...] PO, Herm ava 00 Drug form: TAB, [id number], Start date: 02/11/11 3:00:00, Duration: 30 day, [...] Nirmal feliz 0-31 Ari tab, l 07:05: [place] Route: PO, Herm ava 00 Drug form: TAB, TID, PRN Dizziness, Start date: 02/11/11 2:05:00, Duration: 30 day, Stop date: 03/13/11 2:04:00 Flexeril 2010-04 No Dk 10 mg, 1 Nirmal feliz 0-31 Ari tab, l 07:05: [place] Route: [...] No Dk 650 mg, 2 Memoria en 0-31 Ari tab, l 07:05: Jonathan Route: PO, Herm ava 00 Drug form: TAB, Q4H, PRN Headache, Start date: 02/11/11 2:05:00, Duration: 30 day, Stop date: 03/13/11 2:04:00 diphenhydrA 2010-04 No Dk 25 mg, 1 M emoria MINE 0-31 Ari tab, l 07:05: Jonathan Route: PO, Herm ava 00 Drug form: TAB, Bedtime, PRN Insomnia, Start date: 02/11/11 2:05:00, Duration: 30 day, Stop date: 03/13/11 2:04:00 acetaminoph 2010-04 No Dk 1 tab, Mem oria en-hydrocod 0-31 Ari Route: PO, l one 325 07:05: [...] Shauna 150 mL, l 04:55: Route: IV, [place] 00 Drug form: INJ, ONCE, Start date: 02/10/11 23:55:00, Stop date: 02/10/11 23:55:00 Zofran 2010-04 No Penelope S 4 mg, 2 Memori a 0-31 Shauna mL, Route: l 04:28: IVP, Drug [place] 00 form: INJ, ONCE, Start date: 02/10/11 23:28:00, Stop date: 02/10/11 23:28:00 Cipro 2010-04 No Penelope S 400 mg, Memoria 0-31 Shauna Route: l 04:08: IVPB, Jona 00 ONCE, Priority: STAT, Start date: 02/10/11 23:08:00, Stop date: 02/10/11 23:08:00 Insulin 2010-04 No Penelope S 10 unit, Nirmal feliz regular 0-31 Shauna Route: l 03:56: SUB-Q, Jona 00 ONCE, Priority: STAT, Start date: 02/10/11 22:56:00, Stop date: 02/10/11 22:56:00 Sodium 2010-04 No Penelope S 1,000 mL, Nirmal feliz Chloride 0-31 Shauna Rate: l 0.9% 03:55: 1,000 [place] (Bolus) IV 00 ml/hr, 1000 mL Infuse over: 1 hr, Route: IV, Total Volume: 1,000, [place]us Dose, Priority: STAT, Start date: 02/10/11 22:55:00, Duration: 1 doses or times, Stop date: 02/10/11 23:54:00 BD 2010-04 No Penelope S 15 mL, Memoria Posiflush 0- Shauna Route: l SF 02:55: IVP, Drug Jona 00 Form: INJ, PRN, PRN Line Flush, Start date: 02/10/11 21:55:00, Duration: 30 day, Stop date: 03/12/11 20:54:00 aspirin 325 2010-04 No Penelope S 325 mg, M emoria mg tablet 0- Shauna Route: PO, l 02:47: Drug form: [place] 00 TAB, ONCE, Priority: STAT, Start date: [...] 02/10/11 21:47:00, Stop date: 02/10/11 21:47:00 nitroglycer 2011-1 No Penelope S 0.4 mg, 1 Memoria in 0-31 Shauna tab, l 02:47: Route: SL, Jona Drug form: TAB, Q5Min, PRN Chest Pain, (Hold if SBP < = 90 mmHg or if < = 100mmHg with symptomati c dizziness) , Start date: 02/10/11 21:47:00, Duration: 3 doses or times, Stop date: Limited # of times morphine 2010-04 No Penelope S 2 mg, Memori a Sulfate 0-31 Shauna Route: l 02:47: IVP, ONCE, Jona 00 Priority: STAT, Start date: 02/10/11 21:47:00, Stop date: 02/10/11 21:47:00 Saline 2010-04 No Penelope S 5 ml, Memoria Flush 0.9% 0-31 Shauna Route: l 02:47: IVP, PRN, Jona 00 PRN Line Flush, Start date: 02/10/11 21:47:00, Duration: 30 day, Stop date: 03/12/11 20:46:00 aspirin 325 2010-04 No Giovani 325 mg, 1 Memoria mg tablet, 0-05 Xiaoguang tab, l enteric 14:00: Edwards Route: PO, Herm ava Drug form: ECTAB, Daily, Start date: 01/16/11 9:00:00, Duration: 30 day, Stop date: 02/14/11 9:00:00 Requip 2010-04 No [place] 1 mg, 1 Memori a 0-05 Minhvu Victoriano tab, l 02:00: [place] Route: PO, [place] 00 Drug form: TAB, Bedtime, Start date: [...] Q12H, l tablet 15:37: Edwards 30 tab, [place] 31 Substituti on Allowed, TAB aspirin 325 2010-04 Yes Giovani 9,750 mg, Memoria mg tablet, 0-04 Xiaoguang 30 tab, l enteric 15:37: Edwards PO, Daily, Herm ava coated 18 30 tab, Substituti on Allowed, ECTAB metoprolol 2010-04 No Giovani 12.5 mg, Me moria 0-04 Xiaoguang 0.5 tab, l 15:36: Edwards Route: PO, [place] 00 Drug form: TAB, Q12H, Priority: NOW, Start date: 01/15/11 10:36:00, Duration: 30 day, Stop date: 02/14/11 9:00:00 Fioricet 2010-04 Yes Tajuddin 1 tab, PO, Memoria oral tablet 0-04 Qasimali Q4H, PRN, l 14:18: Medina 30 tab, [place] 21 Headache, Substituti on Allowed, Maintenanc e, [...] tablet 0-04 tab, PO, l 13:58: Bedtime, [place] 11 Substituti on Allowed ibuprofen 2010-04 No Dakota 400 mg, 1 M emoria 400 mg oral 0-04 Minhvu Victoriano tab, l tablet 05:00: [place] Route: PO, Eugenia nn 00 Drug form: TAB, Q8H, Start date: 01/15/11 0:00:00, Duration: 30 day, Stop date: 02/13/11 16:00:00 Saline 2010-04 Beth Duncan 5 ml, Memoria Flush 0.9% 0-04 Minhvu Victoriano Route: l 02:00: [place] IVP, Drug [place] 00 Form: INJ, Q12H, Start date: 01/14/11 21:00:00, Duration: 30 day, Stop date: 02/13/11 9:00:00 Levemir 2010-04 Beth Duncan 70 unit, Nirmal feliz FlexPen 0-04 Minhvu Victoriano 0.7 mL, l 02:00: [place] Route: [place] 00 SUB-Q, Drug form: INJ, Bedtime, Start date: 01/14/11 21:00:00, Duration: 30 day, Stop date: 02/12/11 21:00:00 Lantus 2010-04 Beth Duncan 70 unit, Memor ia 0-04 Minhvu Victoriano Route: l 02:00: [place] SUB-Q, [place] 00 Bedtime, Start date: 01/14/11 21:00:00, Duration: 30 day, Stop date: 02/12/11 21:00:00 glucagon 2010-04 Beth Duncan 1 mg, Memori a 0-04 Minhvu Victoriano Route: IM, l 00:22: [place] Drug form: [place] 00 PDR/INJ, PRN, PRN Blood Glucose Results, Start date: 01/14/11 19:22:00, Duration: 30 day, Stop date: 02/13/11 19:21:00 Insulin 2010-04 Beth Duncan 6 unit, Memor ia (Novolog) 0-04 Minhvu Victoriano 0.06 mL, l Sliding 00:22: [place] Route: [place] Scale - 00 SUB-Q, Very High Drug form: SOLN, Sliding Scale, PRN Blood Glucose Results, Start date: 01/14/11 19:22:00, Duration: 30 day, Stop date: 02/13/11 19:21:00 Dextrose 2010-04 Beth Duncan 25 gm, 50 Me moria 50% Syringe 0-04 Minhvu Victoriano ml, Route: l 00:22: [place] IM, Drug [place] 00 Form: INJ, PRN, PRN Blood Glucose Results, Start date: 01/14/11 19:22:00, Duration: 30 day, Stop date: 02/13/11 19:21:00 Saline 2010-04 No [place] 5 ml, Memoria Flush 0.9% 0-04 Minhvu Victoriano Route: l 00:21: [place] IVP, Drug [place] 00 Form: INJ, PRN, PRN Line Flush, [...] Victoriano tab, l 00:21: [place] Route: PO, [place] 00 Drug form: TAB, Q8H, PRN Nausea & Vomiting, Start date: 01/14/11 19:21:00, Duration: 30 day, Stop date: 02/13/11 19:20:00 aspirin 325 2010-04 No Moise G 325 mg, 1 Memoria mg tablet 0-03 Davis tab, l 23:59: Route: PO, Jona 00 Drug form: TAB, ONCE, Priority: STAT, Start date: 01/14/11 18:59:00, Stop date: 01/14/11 18:59:00 Omnipaque 2010-04 Yes Moise G 45,000 mg, Memoria 300 0-03 Davis 150 mL, l 22:39: Route: IV, Drug form: INJ, ONCE, Start date: 01/14/11 17:39:00, Stop date: 01/14/11 17:39:00 Insulin 2010-04 No Moise G 5 unit, Nirmal feliz regular 0-03 Davis 0.05 mL, l 22:10: Route: Jona 00 IVP, Drug form: SOLN, ONCE, Priority: STAT, Start date: 01/14/11 17:10:00, Stop date: 01/14/11 17:10:00 GI cocktail 2010-04 No Moise G 30 ml, M emoria 0-03 Davis Route: PO, l 22:08: Drug Form: [place] 00 SUSP, ONCE, Routine, Start date: 01/14/11 17:08:00, Stop date: 01/14/11 17:08:00 NS (Bolus) 2010-04 No Moise G 1,000 mL, Memoria IV 1,000 mL 0-03 Davis Rate: l 22:07: 1,000 Jona 00 ml/hr, Infuse over: 1 hr, Route: [...] Q4H, PRN, l tablet 18:32: 20 tab, Jona 59 Pain, Substituti on Allowed acetaminoph Yes Sonal 1 tab, PO, Memoria en-hydrocod 12-22 Raulito Q4-6H, l one 500 18:32: PRN, 20 Jona mg-5 mg 50 tab, Pain, oral tablet [...] Diastolic (mm Hg) 2017-02-26 06:50:00 Mem o[facility] [place] Respitory Rate 2017-02-26 06:50:00 Memori al Jona Temperature Oral (F) 2017-02-26 06:50:00 97.6 F [facility] [place] Heart Rate 2017-02-26 06:50:00 [facility] Respitory Rate 2017-02-26 04:30:00 [facility] al [place] Systolic (mm Hg) 2017-02-26 04:30:00 Nirmal rial [place] Diastolic (mm Hg) 2017-02-26 04:30:00 [facility] Heart Rate 2017-02-26 04:30:00 [facility] [place] Temperature Oral (F) 2017-02-26 00:55:00 98.8 F [facility] [place] Weight 2017-02-26 00:55:00 [facility] [place] BMI Calculated 2017-02-26 00:55:00 [facility] Height 2017-02-26 00:55:00 162.56 cm [facility] [place] Systolic (mm Hg) 2017-02-26 00:55:00 Nirmal rial [place] Diastolic (mm Hg) 2017-02-26 00:55:00 [facility] Heart Rate 2017-02-26 00:55:00 [facility] [place] Respitory Rate 2017-02-26 00:55:00 [facility] [place] Respitory Rate 2017-02-25 07:35:00 [facility] Systolic (mm Hg) 2017-02-25 07:35:00 Nirmal rial [place] Diastolic (mm Hg) 2017-02-25 07:35:00 [facility] [place] Temperature Oral (F) 2017-02-25 07:35:00 98.2 F [facility] Heart Rate 2017-02-25 07:35:00 [facility] [place] BMI Calculated 2017-02-25 05:05:00 [facility] [place] Weight 2017-02-25 05:05:00 [facility] Height 2017-02-25 05:05:00 162.56 cm [facility] [place] Heart Rate 2017-02-25 05:05:00 [facility] [place] Respitory Rate 2017-02-25 05:05:00 [facility] [place] Temperature Oral (F) 2017-02-25 05:05:00 97.8 F [facility] [place] Systolic (mm Hg) 2017-02-25 05:05:00 Nirmal rial [place] Diastolic (mm Hg) 2017-02-25 05:05:00 [facility] [place] Weight 2017-02-25 04:55:00 [facility] [place] Height 2017-02-25 04:55:00 167.64 cm [facility] [place] Temperature Oral (F) 2017-02-25 04:55:00 97.8 F [facility] [place] BMI Calculated 2017-02-25 04:55:00 [facility] [place] Systolic (mm Hg) 2017-02-25 04:55:00 Nirmal rial [place] Diastolic (mm Hg) 2017-02-25 04:55:00 [facility] [place] Respitory Rate 2017-02-25 04:55:00 [facility] [place] Heart Rate 2017-02-25 04:55:00 [facility] [place] Temperature Oral (F) 2017-01-26 16:47:00 98.5 F [facility] Heart Rate 2017-01-26 16:47:00 [facility] [place] Respitory Rate 2017-01-26 16:47:00 [facility] [place] Systolic (mm Hg) 2017-01-26 16:47:00 Nirmal rial [place] Diastolic (mm Hg) 2017-01-26 16:47:00 [facility] [place] Heart Rate 2017-01-26 12:26:00 [facility] Respitory Rate 2017-01-26 12:26:00 [facility] [place] Temperature Oral (F) 2017-01-26 12:26:00 98.4 F [facility] [place] Systolic (mm Hg) 2017-01-26 12:26:00 Nirmal rial [place] Diastolic (mm Hg) 2017-01-26 12:26:00 [facility] [place] Temperature Oral (F) 2017-01-26 09:50:00 98.1 F [facility] [place] Heart Rate 2017-01-26 09:50:00 [facility] [place] Systolic (mm Hg) 2017-01-26 09:50:00 Nirmal rial [place] Diastolic (mm Hg) 2017-01-26 09:50:00 [facility] [place] Respitory Rate 2017-01-26 09:50:00 [facility] [place] Height 2017-01-25 05:58:00 157.48 cm [facility] Weight 2017-01-25 05:58:00 [facility] [place] BMI Calculated 2017-01-25 05:58:00 [facility] [place] Weight 2017-01-25 02:01:00 [facility] BMI Calculated 2017-01-25 02:01:00 [facility] [place] Height 2017-01-25 02:01:00 162.56 cm [facility] [place] Systolic (mm Hg) 2016-12-27 06:03:00 Nirmal rial [place] Diastolic (mm Hg) 2016-12-27 06:03:00 [facility] [place] Respitory Rate 2016-12-27 06:03:00 [facility] Heart Rate 2016-12-27 06:03:00 [facility] Temperature Oral (F) 2016-12-27 06:03:00 98.3 F [facility] [place] Temperature Oral (F) 2016-12-27 04:22:00 98.4 F [facility] [place] Respitory Rate 2016-12-27 04:22:00 [facility] [place] Systolic (mm Hg) 2016-12-27 04:22:00 Nirmal rial [place] Diastolic (mm Hg) 2016-12-27 04:22:00 [facility] [place] BMI Calculated 2016-12-27 04:22:00 [facility] Weight 2016-12-27 04:22:00 [facility] Heart Rate 2016-12-27 04:22:00 [facility] Height 2016-12-27 04:22:00 162.56 cm [facility] [place] Height 2012-02-06 15:19:00 162.56 cm [facility] Weight 2012-02-06 15:19:00 [facility] [place] Height 2011-11-29 02:35:00 162.56 cm [facility] [place] Weight 2011-11-29 02:35:00 [facility] [place] Height 2011-10-25 02:45:00 162.56 cm [facility] [place] Weight 2011-10-25 02:45:00 [facility] [place] Height 2011-05-23 04:48:00 162.56 cm [facility] [place] Weight 2011-05-23 04:48:00 [facility] [place] Temperature Oral (F) 2011-05-08 02:38:00 98.5 F [facility] [place] Diastolic (mm Hg) 2011-05-08 02:38:00 [facility] [place] Systolic (mm Hg) 2011-05-08 02:38:00 Nirmal rial [place] Heart Rate 2011-05-08 02:38:00 [facility] Respitory Rate 2011-05-08 02:38:00 [facility] [place] Weight 2011-05-08 00:09:00 [facility] [place] Height 2011-05-08 00:09:00 162.56 cm [facility] [place] Temperature Oral (F) 2011-05-08 00:09:00 98.6 F [facility] Diastolic (mm Hg) 2011-05-08 00:09:00 [facility] [place] Systolic (mm Hg) 2011-05-08 00:09:00 Nirmal rial [place] Heart Rate 2011-05-08 00:09:00 [facility] [place] Respitory Rate 2011-05-08 00:09:00 [facility] [place] Respitory Rate 2011-04-20 07:05:00 [facility] [place] Heart Rate 2011-04-20 07:05:00 [facility] Diastolic (mm Hg) 2011-04-20 07:05:00 [facility] [place] Systolic (mm Hg) 2011-04-20 07:05:00 Nirmal rial [place] Diastolic (mm Hg) 2011-04-20 06:01:00 [facility] [place] Heart Rate 2011-04-20 06:01:00 [facility] [place] Systolic (mm Hg) 2011-04-20 06:01:00 Nirmal rial [place] Respitory Rate 2011-04-20 06:01:00 [facility] [place] Weight 2011-04-20 02:25:00 [facility] [place] Systolic (mm Hg) 2011-04-20 02:25:00 Nirmal rial [place] Temperature Oral (F) 2011-04-20 02:25:00 98.0 F [facility] Respitory Rate 2011-04-20 02:25:00 [facility] [place] Heart Rate 2011-04-20 02:25:00 [facility] [place] Diastolic (mm Hg) 2011-04-20 02:25:00 [facility] [place] Temperature Oral (F) 2011-03-26 06:05:00 98.0 F [facility] [place] Respitory Rate 2011-03-26 06:05:00 [facility] [place] Heart Rate 2011-03-26 06:05:00 [facility] [place] Systolic (mm Hg) 2011-03-26 06:05:00 Nirmal rial [place] Diastolic (mm Hg) 2011-03-26 06:05:00 [facility] [place] Height 2011-03-26 01:58:00 160.02 cm [facility] [place] Weight 2011-03-26 01:58:00 [facility] [place] Temperature Oral (F) 2011-03-26 01:58:00 99.0 F [facility] Diastolic (mm Hg) 2011-03-26 01:58:00 [facility] [place] Systolic (mm Hg) 2011-03-26 01:58:00 Nirmal rial [place] Respitory Rate 2011-03-26 01:58:00 [facility] [place] Heart Rate 2011-03-26 01:58:00 [facility] [place] Diastolic (mm Hg) 2011-02-11 15:37:00 [facility] [place] Respitory Rate 2011-02-11 15:37:00 [facility] [place] Systolic (mm Hg) 2011-02-11 15:37:00 Nirmal rial [place] Heart Rate 2011-02-11 15:37:00 [facility] [place] Temperature Oral (F) 2011-02-11 15:37:00 98.1 F [facility] [place] Diastolic (mm Hg) 2011-02-11 11:53:00 [facility] [place] Systolic (mm Hg) 2011-02-11 11:53:00 Nirmal rial [place] Temperature Oral (F) 2011-02-11 11:53:00 97.5 F [facility] Heart Rate 2011-02-11 11:53:00 [facility] Respitory Rate 2011-02-11 11:53:00 [facility] [place] Height 2011-02-11 07:38:00 162.56 cm [facility] [place] Weight 2011-02-11 07:38:00 [facility] [place] Respitory Rate 2011-02-11 07:38:00 [facility] [place] Temperature Oral (F) 2011-02-11 07:38:00 98.0 F [facility] Heart Rate 2011-02-11 07:38:00 [facility] [place] Systolic (mm Hg) 2011-02-11 07:38:00 Nirmal rial [place] Diastolic (mm Hg) 2011-02-11 07:38:00 [facility] [place] Weight 2011-02-11 02:32:00 [facility] [place] Height 2011-02-11 02:32:00 162.56 cm [facility] [place] Diastolic (mm Hg) 2011-01-15 16:44:00 [facility] [place] Systolic (mm Hg) 2011-01-15 16:44:00 Nirmal rial [place] Temperature Oral (F) 2011-01-15 16:44:00 97.0 F [facility] [place] Heart Rate 2011-01-15 16:44:00 [facility] Respitory Rate 2011-01-15 16:44:00 [facility] [place] Temperature Oral (F) 2011-01-15 12:18:00 97.2 F [facility] [place] Respitory Rate 2011-01-15 12:18:00 [facility] [place] Heart Rate 2011-01-15 12:18:00 [facility] [place] Diastolic (mm Hg) 2011-01-15 12:18:00 [facility] [place] Systolic (mm Hg) 2011-01-15 12:18:00 Nirmal rial [place] Respitory Rate 2011-01-15 09:30:00 [facility] [place] Systolic (mm Hg) 2011-01-15 09:30:00 Nirmal rial [place] Heart Rate 2011-01-15 09:30:00 [facility] [place] Temperature Oral (F) 2011-01-15 09:30:00 97.9 F [facility] Diastolic (mm Hg) 2011-01-15 09:30:00 [facility] [place] Height 2011-01-15 01:35:00 162.56 cm [facility] [place] Weight 2011-01-15 01:35:00 [facility] Height 2011-01-14 20:07:00 162.56 cm [facility] [place] Weight 2011-01-14 20:07:00 [facility] [place] Systolic (mm Hg) 2010-12-22 18:51:00 Nirmal rial [place] Diastolic (mm Hg) 2010-12-22 18:51:00 [facility] [place] Peripheral Pulse Rate 2010-12-22 18:51:00 [facility] [place] Respitory Rate 2010-12-22 18:51:00 [facility] [place] Height 2010-12-22 16:57:00 162.56 cm [facility] [place] Weight 2010-12-22 16:57:00 [facility] [place] Temperature Oral (F) 2010-12-22 16:57:00 98.2 F [facility] [place] Respitory Rate 2010-12-22 16:57:00 [facility] [place] Peripheral Pulse Rate 2010-12-22 16:57:00 [facility] [place] Diastolic (mm Hg) 2010-12-22 16:57:00 [facility] [place] Systolic (mm Hg) 2010-12-22 16:57:00 Nirmal rial [place] Procedures Procedure Date / Time Performed Performing Clinician Maegan ross Appendectomy [facility] [place] Cholecystectomy [facility] Partial hysterectomy [facility] Encounters Start End Encounter Admission Attending Care Care Encounter Source Date/Time Date/Time Type Type Clinicians Facility Department ID 2018-11-26 2018-11-26 Emergency Antionetteanne [facility] [id number] 11:32:46 15:11:00 Edgard Medley [id number] Brant [id number] [place] [id number] 2018-11-26 2018-11-26 Orders Doctor RASHID [id number] 00:00:00 00:00:00 Only Unassigned, [place] 350.1.13.10 [place] [facility] [id number] [id number] 2017-02-25 2017-02-26 Outpatient Pilar, 2.16.840. 2.16.840.1. 4 [id number] 18:38:00 00:55:00 Rudolph [id number]. [id number] 03 Mateo 3.615.120 5.120 2017-02-24 2017-02-25 Outpatient Quezada, 2.16.840. 2.16.840.1. 4 [id number] 22:49:00 01:35:00 Rudolph [id number]. [id number] 02 Mateo 3.615.120 5.120 2017-01-24 2017-01-26 Outpatient Kayla, 2.16.840. 2.16.840.1 . [id number] 20:53:00 14:35:00 Greg Mack [id number]. [id number] 01 3.615.120 5.120 2016-12-26 2016-12-27 Outpatient Ryan, 2.16.840. 2.16.840.1. 4 [id number] 23:03:00 01:05:00 Moise Rojas [id number]. [id number] 00 3.615.120 5.120 Results Test Description Test Time Test Comments Results Result Comments Source POCT-GLUCOSE METER 2017-10-07 11:53:00 Test Item Value Reference Range Interpretation Comme nts POC-GLUCOSE METER ([place]) (test 277 mg/dL 70-110 H TESTED AT [address] POINT code = 1538) PK[facility] [address] POCT-GLUCOSE [id number] 11:53:00 Test Item Value Reference Range Interpretation Comments POC-GLUCOSE METER 411 mg/dL 70-110 HH TESTED AT [address] ([facility]) (test code POINT PK [facility] = 1538) [address] RAD, SPINE, CERVICAL, 2 OR 3 [id number] 23:46:00Reason for exam:->neck painFINAL REPORT RAD, SPINE, CERVICAL, 1 view. CLINICAL INDICATION: neck pain COMPARISON: None FINDINGS/IMPRESSION: A single lateral view of the cervical spine was obtained.The study is limited due to obliquity. Vertebral body height and and alignment is maintained. The intervertebral disc spaces are not well evaluated. There is no prevertebral soft tissue swelling. Signed: Clarence Grayson MDRchulaort Verified Date/Time: 10/06/2017 23:46:30 Reading Location: [address] Transitional Reading Room CT, SPINE, CERVICAL, [...] further evaluation as clinically warranted. Signed: Clarence Graysonort Verified Date/Time: 10/06/2017 23:44:40 Reading Location: [address] Transitional Reading Room CT, BRAIN, WITHOUT [...] MRI for further evaluation. Signed: Carla Oden [facility] Verified Date/Time: 10/06/2017 23:24:44 Reading Location: [address] Reading Room TROPONIN I 2017-10-06 22:56:00 [...] acute neurological disease, and persistent tachyarrhythmia.COMPREHENSIVE METABOLIC [id number] 22:50:00 Test Item Value Reference Range Interpretation [...] S NOT APPLICABLE FOR DIALYSIS PATIEN TS. [id number] 22:42:00 Test Item Value Reference Range Interpretation Comments AMYLASE (BEAKER) (test code = 349) 58 U/L 30-110 CBC W/PLT COUNT & AUTO [id number] 22:22:00 Test Item Value Reference Range Interpretation [...] 0.00-0.20 (test code = 417) URINALYSIS W/ [id number] 22:09:00 Test Item Value Reference Range Interpretation [...] 1663) SOURCE(BEAKER) (test code = 2795) POCT-GLUCOSE [id number] 07:19:00 Test Item Value Reference Range Interpretation Comments POC-GLUCOSE METER 241 mg/dL 70-110 H TESTED AT [address] (BEAKER) (test code POINT PK [facility] [place] = 1538) [address] CT, [id number] 19:16:00FINAL REPORT CT OF THE ABDOMEN AND [...] MDReport Verified Date/Time: 09/22/2017 19:16:29 Reading Location: [facility] C013W Consult Reading Room BASI METABOLIC [id number] 17:37:00 Test Item Value Reference Range Interpretation [...] NOT APPLICABLE FOR DIALYSIS PATIEN TS. TROPONIN [id number] 17:07:00 Test Item Value Reference Range Interpretation [...] (test code = 749) 26 U/L 6-51 [id number] 16:51:00 Test Item Value Reference Range Interpretation Comments AMYLASE (BEAKER) (test 32 U/L 30-110 Speci men markedly code = 349) hemolyzed URINALYSIS W/ [id number] 16:21:00 Test Item Value Reference Range Interpretation [...] = 2795) CBC W/PLT COUNT & AUTO [id number] 16:15:00 Test Item Value Reference Range Interpretation [...] L 0.00-0.20 (test code = 417) POCT-GLUCOSE [id number] 15:36:00 Test Item Value Reference Range Interpretation Comments POC-GLUCOSE METER 284 mg/dL 70-110 H TESTED AT [address] ([facility]) (test code POINT PK [facility] [place] = 1538) [address] CT, [id number] 15:32:00Reason for exam:->LLQ ABD PAINIs the patient [...] MDReport Verified Date/Time: 07/07/2017 15:32:20 Reading Location: [facility] B1 C013Y CT Body Reading Room LIPASE 2017-07-07 14:41:00 Test Item Value Reference Range Interpretation Comments LIPASE (BEAKER) (test code = 749) 32 U/L 6-51 COMPREHENSIVE METABOLIC [id number] 14:40:00 Test Item Value Reference Range Interpretation [...] NOT APPLICABLE FOR DIALYSIS PATIEN TS. POCT-GLUCOSE [id number] 14:10:00 Test Item Value Reference Range Interpretation Comments POC-GLUCOSE METER 352 mg/dL 70-110 H TESTED AT [address] ([facility]) (test code POINT [facility] [place] = 1538) [address] CBC W/PLT COUNT & AUTO [id number] 13:30:00 Test Item Value Reference Range Interpretation [...] 0.00-0.20 (test code = 417) URINALYSIS W/ [id number] 13:01:00 Test Item Value Reference Range Interpretation [...] 1663) SOURCE(BEAKER) (test code = 2795) KETONE, [id number] 12:58:00 Test Item Value Reference Range Interpretation Comments KETONES, BLOOD (BEAKER) (test code 0.1 mmol/L <0.4 = 1103) BLOOD GAS, [id number] 12:48:00 Test Item Value Reference Range Interpretation [...] (test code = 1819) 37.0 % POCT-GLUCOSE [id number] 12:04:00 Test Item Value Reference Range Interpretation Comments POC-GLUCOSE METER > mg/dL 70-110 HH OUTSIDE ME ASURING (BEAKER) (test code [facility] = 1538) [facility] [address] BACTERIAL - [id number] 03:02:00Negative (02/25/17 9:02 PM)[facility] [id number] 03:02:00 Test Item Value Reference Range Interpretation Comments Tube Num CSF (test code = Tube Num CSF) 1 1 [facility] [id number] 03:02:00Clear (02/25/17 9:02 PM)[facility] [id number] 03:02:00Colorless (02/25/17 9:02 PM)[facility] [id number] 03:02:00Colorless (02/25/17 9:02 PM)[facility] [id number] 03:02:002[facility] [id number] 03:02:001[facility] [id number] 03:02:001[facility] [id number] 03:02:002[facility] [id number] 03:02:00 Colorless (02/25/17 9:02 PM)[facility] [id number] 03:02:00Clear (02/25/17 9:02 PM)[facility] [id number] 03:02:00 Test Item Value Reference Range Interpretation Comments Tube Num CSF (test code = Tube Num CSF) 4 1 [facility] [id number] 03:02:00Colorless (02/25/17 9:02 PM) [facility] [id number] 03:02:05336Khehlcul HermannBODY FLUIDS 2017-02-26 03:02:0055[facility]annFUNGAL - [id number] 03:02:00 Negative (02/25/17 9:02 PM)[facility] ZtanulkRWMBUVIKOH5782-44-71 03:02:00Non Reactive (02/25/17 9:02 PM)[facility]annMOLECULAR [id number] 03:02:00Negative 2(02/25/17 9:02 PM)[facility]annMOLECULAR DIAGNOSTIC 2017-02-26 03:02:00Negative 1(02/25/17 9:02 PM)[facility]annVIRAL - SEROLOGY 2017-02-26 03:02:00Negative (02/25/17 9:02 PM)[facility]annCHEM PANEL 2017-02-26 01:42:000.9[facility]annCHEM [id number] 01:42:0023[facility]annCHEM [id number] 01:42:004.3[facility]annCHEM [id number] 01:42:0011.3[facility]annCHEM [id number] 01:42:40063Wbajiawx HermannCHEM [id number] 01:42:000.3[facility]annCHEM [id number] 01:42:0016 [facility]annCHE[facility] [id number] 01:42:0017[facility]annCHEM PANEL 2017-02-26 01:42:008.2[facility]annCHE[facility] [id number] 01:42:004.3[facility]annCHE[facility] [id number] 01:42:95629Dmphxvft HermannCHEM TMGFO4685-08-14 01:42:000.70[facility]annCHEM [id number] 01:42:70798Qnordbyl HermannCHEM [id number] 01:42:008.9[facility]annCHE[facility] [id number] 01:42:0097 [facility]CHE[facility] [id number] 01:42:0026[facility]annCHEM PANEL 2017-02-26 01:42:61513Bvcpljcu HermannCHEM [id number] 01:42:0016[facility]annCHEM [id number] 01:42:003.9[facility]annCHEM [id number] 01:42:001.8[facility] FradojnJDAQIXWSKO6257-91-50 01:42:47634Izhszoyb [place] UBMFMORVZU5228-63-00 01:42:0082.2[facility] WfbatnrENWFIOUFDR0331-08-57 01:42:00 37.1Memorial BrzunlrNBVNXUQDDC6820-09-30 01:42:007.4[facility] HermannHEMATOLOGY 2017-02-26 01:42:0014.1[facility] [id number] 01:42:00 Test Item Value Reference Range Interpretation Comments MCH (test code = MCH) 27.6 pg 27.0-31.0 [facility] [id number] 01:42:0033.6[facility] HermannHEMATOLOGY 2017-02-26 01:42:004.52[facility] QyxczaoQOHKKPLACV7130-83-79 01:42:0012.5[facility] KgvaogyTDRTIYJTIK1917-43-39 01:42:007.1[facility] AwqhgfqWAQOENRVAQ0624-34-00 01:42:000.8[facility] ChahwizUTGWNRLJIY7120-70-51 01:42:002.8[facility] [place] [id number] 01:42:003.8[facility]orial SqeoyqmDBZPYYQXDK2650-15-19 01:42:000.4 Memorial ZlkxlylKHFTLYQCGL2263-38-35 01:42:0053.4[facility] HermannHEMATOLOGY 2017-02-26 01:42:0039.1[facility] ZtqgevtSOBEBOZDOU6589-73-30 01:42:001.4[facility] ZdkcdejAINCYQMVTI3383-63-04 01:42:005.3[facility] LdjggozVWVHIWKBJI7126-34-48 01:42:000.1[facility]orial WbijkkjRRJMHGBKYR6226-09-78 01:42:000.1[facility] HermannURINE AND [id number] 01:42:000.2[facility]annUR[facility] AND [id number] 01:42:00Negative (02/25/17 7:42 PM)[facility] [id number] 01:42:00Negative *NA*(02/25/17 7:42 PM)[facility] AND [id number] 01:42:00Negative *NA*(02/25/17 7:42 PM)[facility] [id number] 01:42:00Negative (02/25/17 7:42 PM)[facility] AND [id number] 01:42:00Negative (02/25/17 7:42 PM)[facility] AND [id number] 01:42:00Negative (02/25/17 7:42 PM)[facility] AND [id number] 01:42:00 Test Item Value Reference Range Interpretation Comments UA pH (test code = UA pH) 6.0 1 5.0-8.0 [facility] AND [id number] 01:42:00 Test Item Value Reference Range Interpretation Comments UA Spec Grav (test code = UA Spec 1.010 1 Grav) [facility] [id number] 01:42:00Yellow *NA*(02/25/17 7:42 PM) [facility] [id number] 01:42:00Slight Cloudy (02/25/17 7:42 PM)[facility] HermannVIRAL - [id number] 01:42:00Negative (02/25/17 7:42 PM)[facility]annVIRAL - [id number] 01:42:00Negative (02/25/17 7:42 PM)[facility]annCHEM [id number] 09:02:28364Bbpjmdwj HermannCHEM PANEL 2017-01-26 09:02:000.2[facility] HermannCHEM ETLPK7700-03-21 09:02:15571Eysncxue HermannCHEM ZWYOL6873-04-19 09:02:0012[facility] HermannCHEM QEKGW0649-59-25 09:02:003.3[facility] HermannCHEM PBEBV0445-43-79 09:02:002.4[facility] HermannCHEM [id number] 09:02:005.7[facility] HermannCHEM OPASF2374-32-63 09:02:009.7 [facility]annCHEM KIHHV9482-85-83 09:02:98081Mlxmcaik HermannCHEM PANEL 2017-01-26 09:02:007.4[facility] HermannCHEM WHJLC9097-79-61 09:02:000.7[facility] HermannCHEM ZCVYV1145-78-23 09:02:000.40[facility] HermannCHEM SCMZG9148-20-40 09:02:005[facility] HermannCHEM CAWTA5287-77-87 09:02:0037[facility]annCHEM RVVNM1339-72-19 09:02:0044[facility]annCHEM SNXWI8381-40-40 09:02:003.7 [facility]annCHE[facility] AYRLM0080-88-20 09:02:47672Aaaxgkff HermannCHEM PANEL 2017-01-26 09:02:0025[facility] HermannCHEM OGCJP0725-59-07 09:02:17678Vunxgswb HermannCARDIAC SJPKQPW6079-34-23 22:26:00<0.02[facility] HermannPARATHYROID EELPAFV8174-69-28 22:26:000.99[facility] HermannPARATHYROID QUMHBPU6358-58-23 22:26:001.01[facility]annCHEM PTVBK0572-01-62 20:00:002.6[facility]annCHEM OSKRR7745-89-96 20:00:84143Trtvofib HermannCHEM AEYXG7975-18-31 20:00:000.50 [facility]annCHEM AKQFL6679-52-04 20:00:29697Ldofshcg HermannCHEM PANEL 2017-01-25 20:00:003.6[facility]annCHEM SECFK8139-51-81 20:00:0025[facility]annCHEM FXHLY2893-01-72 20:00:26036Czgygtwk HermannCHEM JNICC0123-58-51 20:00:008.6[facility]annCHEM WSZEV5494-52-61 20:00:006.9[facility] HermannCHEM ACICI2624-43-34 20:00:80133Adqtplfr HermannCHEM BXUMT4660-46-57 20:00:008 [facility]annCHE[facility] CDBKW5504-52-14 08:54:002.7[facility] HermannCHEM PANEL 2017-01-25 08:54:13983Dgdvbmsr HermannCHEM VHBUK6326-64-77 08:54:000.60[facility] HermannCHEM CMMJI2304-91-80 08:54:009[facility]annCHEM JHRHI6322-42-40 08:54:79856Ecgsudhh HermannCHEM KNADH4738-98-79 08:54:0012.5[facility]annCHEM HXOEK5323-51-03 08:54:003.5[facility] HermannCHEM LDMAQ9524-51-96 08:54:11179 [facility]annCHEM YOBEK6612-73-85 08:54:0023[facility] HermannCHEM PANEL 2017-01-25 08:54:007.1[facility]annCHEM VTSDY2528-03-85 08:54:16135Xamqtdmk HermannCHEM PJLVR4464-08-13 08:54:001.7[facility] AiruwcqCZPOEOZYJM8955-07-90 08:54:007.4[facility] AvouscpBZPYCLISUF9331-87-45 08:54:0013.6[facility] QZLSNEKEPP0204-99-50 08:54:62943Lcalipeu LvvmithRJBGUETNXE0260-31-29 08:54:00 33.4[facility] VcbfhwbQLWWPLVGXI0469-27-00 08:54:0082.5[facility] HermannHEMATOLOGY 2017-01-25 08:54:00 Test Item Value Reference Range Interpretation Comments MCH (test code = MCH) 27.6 pg 27.0-31.0 [facility] BcssjifTHPQKGKHKR4934-33-15 08:54:0010.7[facility] HermannHEMATOLOGY 2017-01-25 08:54:0032.0[facility] XwjivahAPUODGYDHY4328-67-81 08:54:005.5[facility] WkktayaCMSHFCSXHG0612-08-13 08:54:003.88[facility] QvyvghaHCIQIPEQOD8328-06-78 08:54:007.2[facility] RpnujbcBZNHUIZPJY0173-23-09 08:54:000.4[facility] ZTHOHVWCYF3469-94-80 08:54:003.0[facility] XnskjzoMHINQHXTRU7266-58-63 08:54:002.0 [facility] GgpmvpbUDSOLTWQAF7271-67-94 08:54:000.9[facility]annHEMATOLOGY 2017-01-25 08:54:000.6[facility] TlixupzNOFYLYQIHH7211-70-22 08:54:0036.3[facility] KwcfdqhZTYZHWAHCM4429-13-07 08:54:0055.0[facility]annURINE AND STOOL 2017-01-25 04:54:00Negative (01/24/17 11:54 PM)[facility] 2017-01-25 04:54:00Positive *ABN*(01/24/17 11:54 PM)[facility] GXUZS8273-56-43 04:54:00Negative (01/24/17 11:54 PM)[facility] YMXJB8544-90-80 04:54:00Negative *NA*(01/24/17 11:54 PM)[facility] PFFEH5724-04-69 04:54:00Negative (01/24/17 11:54 PM)[facility] KZVAR6343-90-97 04:54:000.2[facility] AND JOACZ8067-08-24 04:54:00Negative *NA*(01/24/17 11:54 PM)[facility] STOOL 2017-01-25 04:54:00 Test Item Value Reference Range Interpretation Comments UA pH (test code = UA pH) 5.5 1 5.0-8.0 [facility] CONMI2520-99-30 04:54:00<=1.005 *NA*(01/24/17 11:54 PM)[facility] LHBYD8394-09-00 04:54:00Yellow *NA*(01/24/17 11:54 PM)[facility] SEJRG9863-74-73 04:54:00Clear (01/24/17 11:54 PM) [facility]annCARDIAC PCSDCEY7793-29-88 02:44:0062[facility]annCARDIAC ECGYYFC2412-38-38 02:44:00<1.0[facility]annCARDIAC NZXNEAN3876-77-96 02:44:00<0.02[facility]annCARDIAC WVFVHEE5782-47-35 02:44:00<1.6 [facility]annCHEM ODHHG7766-81-26 02:44:0014[facility]annCHEM PANEL 2017-01-25 02:44:000.5[facility] HermannCHEM KEWME1733-96-84 02:44:0037[facility]annCHEM GXVBB3855-85-85 02:44:21357Aasgyads HermannCHEM XPNWM5527-03-01 02:44:000.7[facility] HermannCHEM VQMOE7708-89-59 02:44:004.7[facility]annCHEM VTKLS6917-89-84 02:44:003.5[facility] HermannCHEM RARTF1103-55-60 02:44:0016 [facility]annCHEM LFQPX1998-85-94 02:44:008.2[facility]annCHEM PANEL 2017-01-25 02:44:60643Pcayuyxs RufssmeCVFVPZIEWE6643-91-85 02:44:0013.7[facility] EzjlydmZOLNJSIILO1675-91-78 02:44:0041.6[facility] XvlrtucSXVJSYPOGK5266-66-29 02:44:0083.6[facility] JkogjulMRXJKWGGBF6671-57-86 02:44:00 Test Item Value Reference Range Interpretation Comments MCH (test code = MCH) 27.5 pg 27.0-31.0 [facility] OfgicaeBNFPFOJKRR7514-77-50 02:44:0032.9[facility]annHEMATOLOGY 2017-01-25 02:44:0013.6[facility] GlwngetRIGVLSZOCV7552-60-18 02:44:54796Hmrxiywh PyuyhrrTRCGAEUAXQ2108-81-26 02:44:008.1[facility] DisknfcTVCJHYLLUT5833-62-08 02:44:005.8[facility] ZphmspzAXCQDBEUHB6386-97-35 02:44:004.97[facility] [place] STGSQXCOIO8252-97-34 02:44:000.4[facility] NbjokrjLVHOWKJYRO1952-27-97 02:44:000.7 [facility] LofpauwJNCIOTKERR4777-22-82 02:44:003.5[facility] HermannHEMATOLOGY 2017-01-25 02:44:007.1[facility] HmpjtyzCOIOWTTZYA2110-24-59 02:44:000.6[facility] BvkqtdpGEGFLTKATI3277-51-39 02:44:001.8[facility] KmrrufrKWHODMSFBS8045-48-62 02:44:0059.9[facility] YhdakawFLDPABFYYO6926-70-92 02:44:0031.7[facility] [place] URINE KSPYMCN8662-79-01 09:22:00 Test Item Value Reference Range Interpretation [...] S Sulfamethoxazole (test code = 47) POCT-GLUCOSE MVDWU0988-12-26 23:15:00 Test Item Value Reference Range Interpretation Comments POC-GLUCOSE METER 227 mg/dL 70-110 H TESTED AT [facility] [address] (BEAKER) (test code [address] [facility] [place] = 1691) [address] URINALYSIS W/ UOBZMUAZFFF6997-03-28 22:36:00 Test Item Value Reference Range Interpretation [...] 1663) SOURCE(BEAKER) (test code = 2795) KETONE, [id number] 22:32:00 Test Item Value Reference Range Interpretation Comments KETONES, BLOOD (BEAKER) (test code 0.6 mmol/L <0.4 H = 1103) BLOOD GAS, [id number] 22:30:00 Test Item Value Reference Range Interpretation [...] (test code = 1819) 21.0 % SCREEN, FKKQQ5789-44-21 22:29:00 Test Item Value Reference Range Interpretation Comments TEST URINE (BEAKER) (test Negative code = 583) TROPONIN [id number] 21:42:00 Test Item Value Reference Range Interpretation [...] CK-MB Reference Range:<5 Normal5-10 Borderline>10 AbnormalCOMPREHENSIVE METABOLIC NPJYJ4825-76-35 21:34:00 Test Item Value Reference Range Interpretation [...] S NOT APPLICABLE FOR DIALYSIS PATIEN TS. [id number] 21:32:00 Test Item Value Reference Range Interpretation Comments LIPASE (BEAKER) (test code = 749) 28 U/L 6-51 CBC W/PLT COUNT & AUTO ERJGIJRXLTRC3642-70-16 20:55:00 Test Item Value Reference Range Interpretation [...] L 0.00-0.20 (test code = 417) POCT-GLUCOSE ZTBNX3536-41-25 20:56:00 Test Item Value Reference Range Interpretation Comments POC-GLUCOSE METER 446 mg/dL 70-110 Notified R Diana DALTON/TESTED AT (BEAKER) (test code [address] = [address]) [address] [facility] [address] BEDSIDE GLUCOSE ZIDHAKD4291-89-49 15:13:87074Rgenspui HermannBEDSIDE GLUCOSE RXTNVDV0042-39-26 04:18:55100Srfjivrq BpslsnfGSXOQTWVQ3362-07-50 03:05:000.14 [facility] PgumcooDFPHINEVQ8507-03-99 03:05:008[facility] JhttzgmAOPQEAQWW0945-47-52 03:05:000.2[facility] XfeqnlbWSIJNNYDP5487-05-54 03:05:0027[facility] KQPSSIEUD6786-77-41 03:05:0013.2[facility] UhqnqvaBCWQYFUAB2375-32-43 03:05:008.8 [facility] UugvrlmKQKCDLBCI4487-77-16 03:05:007.6[facility] HermannCHEMISTRY 2011-11-29 03:05:0016[facility] AsovkxsQMGBBEHDO6681-98-78 03:05:003.8[facility] RbgcogmXDDYSPFGF4597-42-98 03:05:003.8[facility] ShyzjhqUXLYJQGXE6028-73-25 03:05:001.0[facility] NvtjrgbRQHGSBDKZ7406-05-00 03:05:16658Idvtxgdn [place] TAENMIWDY8096-56-66 03:05:0013[facility] AadrjdkKMMPNMGCC4753-97-76 03:05:38562 [facility] YjpkljfNXTXSXFZV7561-73-61 03:05:0098[facility] HermannCHEMISTRY 2011-11-29 03:05:000.7[facility] LmsmtqqTQMWFHKJZ4254-52-62 03:05:0011[facility] XuwoesbDHRDNCXWT1490-86-37 03:05:004.2[facility] GotilavFSDQHENVA3039-44-08 03:05:87282Iuljjorj PhanmgiBPLLJEZJDD1168-48-62 03:05:004.41[facility] [place] HRKTCJVHQI5539-15-80 03:05:005.7[facility] GwptjuiJDWLQHYRBV5146-83-40 03:05:00 33.2[facility] VlwuwqiZGDAJPQORV1921-57-40 03:05:0012.9[facility] HermannHEMATOLOGY 2011-11-29 03:05:0013.8[facility] MhvvdwiOEHTANIOMZ9613-71-31 03:05:0088.4[facility] AbvjnlsEAFMNVRTVA6124-43-96 03:05:00 Test Item Value Reference Range Interpretation Comments MCH (test code = MCH) 29.3 pg 27.0-31.0 N [facility] YerfmyyOBEYOWREDW7463-20-86 03:05:0038.9[facility] HermannHEMATOLOGY 2011-11-29 03:05:007.5[facility] JfimpwaZWYVGSKHCR8132-54-10 03:05:58857Cxhdefvj RmqtizdFBCVTFLCZA3806-66-06 03:05:0057.5[facility] FkruyxtSZHMQVCQZJ7046-57-00 03:05:000.5[facility] HjccgzhKPUCMINBKT4371-62-64 03:05:001.5[facility] XDVOQDFLII0962-06-69 03:05:005.3[facility] RoirqsbTTKOBBGSHI4126-95-16 03:05:00 35.2[facility] RyhfygyNEWTFPCJAL3399-80-22 03:05:002.0[facility] HermannHEMATOLOGY 2011-11-29 03:05:003.3[facility] SjvfkkkWBONNPMZAZ9327-06-87 03:05:000.1[facility] SgruxprEYORHSLZKQ8083-81-49 03:05:000.3[facility] PyedwcwACTSQNIENZ8422-94-31 03:05:000.0[facility] HwkyfzwFYJEYUUGGD2467-19-28 03:05:00 Test Item Value Reference Range Interpretation Comments UA Spec Grav (test code = UA Spec 1.010 1 N Grav) [facility] GxghwfgDKWDOQQIKQ5596-66-12 03:05:00 Test Item Value Reference Range Interpretation Comments UA pH (test code = UA pH) 5.5 1 5.0-8.0 N [facility] NvucmfrXYKLKHLAUL6188-69-14 03:05:00Yellow *NA*(11/28/2011 22:05:00) [facility] FojeedvPCBWLFEBJG8664-96-21 03:05:00Clear (11/28/2011 22:05:00)[facility] EpdzmhpCMUDQYUWQF4732-88-26 03:05:00Negative (11/28/2011 22:05:00)[facility] RfqeycvYOFHNBNRJH9037-59-64 03:05:00Negative (11/28/2011 22:05:00)[facility] JzagbpcZHHNKSULXE2600-32-49 03:05:000.2[facility] TetqrjeTWSWIRQUSV2928-35-32 03:05:00>=1000 mg/dL *ABN*(11/28/2011 22:05:00)[facility] HermannURINALYSIS 2011-11-29 03:05:00Negative mg/dL *NA*(11/28/2011 22:05:00)[facility] [place] JOLRMXLCKX7876-28-42 03:05:00Negative mg/dL (11/28/2011 22:05:00)[facility] MkwtzczEIRVVLALDA1831-30-64 03:05:00Negative (11/28/2011 22:05:00)[facility] VivfjfbTXBMIOQHNM0480-36-84 03:05:00Negative *NA*(11/28/2011 22:05:00)[facility] JaaavsrCGYASYUWPZ5850-75-23 03:05:00Rare /LPF (11/28/2011 22:05:00)[facility]ilibstUYDXMBLXVV7999-15-07 03:05:00Occasional /HPF (11/28/2011 22:05:00) [facility] AqcatdsCPLXWHVDIJ9508-19-62 03:05:000-2 /HPF (11/28/2011 22:05:00) [facility] EitcjubEFOLIZFYXK8756-01-25 03:05:000-2 /HPF (11/28/2011 22:05:00) [facility] FruwyivGAKTWOXQFI2810-38-38 03:05:00Performed (11/28/2011 22:05:00) [facility] MGDWOQW6691-18-43 02:45:00>400[facility] HermannBEDSIDE GLUCOSE ZNUSZNV1254-02-81 06:10:91285Hhznrlct HermannBEDSIDE GLUCOSE RUETJIA2140-47-44 05:04:0094[facility] CeltorePJEGYXLBK8483-72-56 03:06:00 72[facility] DwgwbxrLENZVGSQH7854-43-63 03:06:0040[facility] HermannCHEMISTRY 2011-10-25 03:06:007.42[facility] YiwukmfPVGTJOLXA2415-02-00 03:06:000.0[facility] FuqykxvAAZEIPUWD0478-19-13 03:06:00Rm Air (10/24/2011 22:06:00)[facility] NLBZSSPIH4142-97-70 03:06:0095.0[facility] AfatjwjFFPHFPRJL8851-99-72 03:06:001 [facility] AvzjmfqNJYIXQEKA5964-23-09 03:06:0026[facility] HermannCHEMISTRY 2011-10-25 03:05:95279Ptcbaxaf OmrosifMFBDQOXJY7694-70-56 03:05:31250Tsvmogax JrwvhqpTAEUZTTBH4601-00-34 03:05:0019[facility] GlpbefzURZNVESMF5320-85-71 03:05:008.4[facility] PvuzaytGRVMTDCAP9482-95-46 03:05:00968Kzlicvzl [place] FESITBZJV0626-66-75 03:05:59425Xfocwqhk PytelioIRNIWKQOO2805-67-44 03:05:003.8 [facility] BkpdmocSWFSPXPVW8434-22-63 03:05:003.7[facility] HermannCHEMISTRY 2011-10-25 03:05:0027[facility] CoajisrSZFNIANXR6299-32-43 03:05:0012.2[facility] AxpyjdjZBKPQCMOP3486-65-75 03:05:004.2[facility] EsozqrmKKTRDRBQR7511-51-30 03:05:000.8[facility] FgkswzvDHOSJVPLZ6528-06-45 03:05:61962Djyuxmef [place] TDVYPRYLI6025-13-20 03:05:0024[facility] IpppgpzWECUDGZWJ5102-04-47 03:05:007.5 [facility] RnzzehnVTKTDQWZL2483-00-01 03:05:0010[facility] HermannCHEMISTRY 2011-10-25 03:05:97869Jaqpnhjr WaluckgUOYDHRCYH9767-80-23 03:05:000.3[facility] QjzylgiKDFQFKIBL6156-17-54 03:05:001.0[facility] HwjzfuzGWHIYQKLA0100-00-96 03:05:0017[facility] DqpuffnADLNWQHDM6563-48-78 03:05:000.22[facility] OBMICIYIOM4674-63-69 03:05:000.1[facility] QpsiwfkRAQXCURYUG1622-97-50 03:05:002.0 [facility] YqwiijvEBYJQRXIYO7761-27-72 03:05:000.0[facility] HermannHEMATOLOGY 2011-10-25 03:05:000.4[facility] RcnvrspAOVVQGKPUX3029-57-92 03:05:0029.4[facility] BjjrexpERRIDKXLRF7558-84-03 03:05:004.3[facility] SvyidnpQNVKORDENJ2871-85-30 03:05:005.7[facility] JlyjsmxIIXVMMDYJY5638-36-30 03:05:000.4[facility] MAVJOMUCAX8216-53-20 03:05:001.2[facility] WrofhkeKKMBVHZMKS0227-95-30 03:05:00 63.3[facility] FatwxdcTXMHRAANDE9243-26-36 03:05:0014.0[facility] HermannHEMATOLOGY 2011-10-25 03:05:75124Ugrpvjua CjzwijdHSOYEJLJBR3635-68-46 03:05:008.0[facility] UudluhfSFQELYOGDF4120-65-29 03:05:0013.3[facility] VtnvzguWSFZTKYUNS3498-66-30 03:05:0039.4[facility] AtwqrgmOFOZLZONOX7283-07-40 03:05:0086.2[facility] [place] NQGIIITRYB8836-22-71 03:05:00 Test Item Value Reference Range Interpretation Comments MCH (test code = MCH) 29.1 pg 27.0-31.0 N [facility] ItzrtxeTAUQCQLKWQ5615-08-32 03:05:0033.8[facility] HermannHEMATOLOGY 2011-10-25 03:05:006.9[facility] IpestsdJVKZDUUURM0588-21-09 03:05:004.57[facility] SxxuikxOKDCBIZGGZ2212-64-65 03:05:00Positive *ABN*(10/24/2011 22:05:00)[facility] BfpukwuVCMFQWSXBX2007-44-02 03:05:00Negative (10/24/2011 22:05:00)[facility] GseprzjGDCHXBRPTB8126-09-45 03:05:00Negative (10/24/2011 22:05:00)[facility] ZoofqokUVHLGWFVIW9986-23-84 03:05:00>=1000 mg/dL *ABN*(10/24/2011 22:05:00) [facility]PfpnvfmRGUTXXVQJZ9241-89-69 03:05:00 Test Item Value Reference Range Interpretation Comments UA pH (test code = UA pH) 6.0 1 5.0-8.0 N [facility] SouthSexsdvnHYICXGMRZW2856-37-42 03:05:00 Test Item Value Reference Range Interpretation Comments UA Spec Grav (test code = UA Spec 1.015 1 N Grav) [facility] GiofydhHEQGVLXJNP8869-76-88 03:05:00Yellow *NA*(10/24/2011 22:05:00) [facility] SouthQzgdxftAHSCEVLJUN2456-25-60 03:05:00Clear (10/24/2011 22:05:00)[facility] WgvdarkTQXVEMIEHQ3305-78-00 03:05:000.2[facility] UcpfjcwNLEZPLGHPM9506-55-90 03:05:00Negative *NA*(10/24/2011 22:05:00)[facility] ZqahqxsXMUVMQPYYM2387-96-71 03:05:00Negative (10/24/2011 22:05:00)[facility] QinsiuiFXZXNEYCVW1438-12-42 03:05:00Negative *NA*(10/24/2011 22:05:00)[facility] SouthIogvtfeAQYQZMKEWF2247-07-34 03:05:00Rare /LPF (10/24/2011 22:05:00)[facility] SouthThaozaxJYLGHHSIAH1369-56-28 03:05:00Moderate /HPF (10/24/2011 22:05:00)[facility] GjudzsgCWTTZGYYAX7423-28-98 03:05:000-2 /HPF (10/24/2011 22:05:00)[facility] SgkyiqxHGDRBDHHRU1849-49-80 03:05:00Performed (10/24/2011 22:05:00)[facility] MpionryMKFJRPUNAB1562-61-70 03:05:006-10 /HPF *ABN*(10/24/2011 22:05:00)[facility] SouthSsulodfBFRBQGLNMH5743-23-62 03:05:00Rare /LPF (10/24/2011 22:05:00)[facility] HermannBEDSIDE GLUCOSE TESTING 2011-10-25 02:43:00>400[facility] HermannBEDSIDE GLUCOSE VZLRHLV2973-46-26 08:15:02488Xcscdbuk HermannBEDSIDE GLUCOSE UCJAOSW6943-17-71 07:07:00>400 [facility] NongxdeGKBNJJFGO5997-39-07 05:10:00728Wxdslquw HermannCHEMISTRY 2011-05-23 05:10:000.8[facility] EzoqprbOHIAXVEAR3672-84-52 05:10:0026[facility] RopsfgbYGWYILCYI0878-64-91 05:10:0096[facility] DqrcqmjJQQPHZRSL1616-98-28 05:10:003.9[facility] KhacoxuZEBCXLPCE2842-37-22 05:10:0012.9[facility] EXYDTBETL6953-27-17 05:10:004.0[facility] NohbobvFVDKASOWH5991-56-42 05:10:007.8 [facility] VxvdzevNLFWGQIJM1517-08-58 05:10:0015[facility] HermannCHEMISTRY 2011-05-23 05:10:02883Hcvtktip VukmcnsAMAMVOHLA0671-49-34 05:10:001.1[facility] BtszrghYYNXOQMMX7032-31-47 05:10:003.8[facility] FobeqzxSAHBYKTSU7863-60-17 05:10:008.6[facility] UaxvqndZJTJWKTIZ3252-51-12 05:10:0011[facility] EPMGYOTZD6230-05-36 05:10:000.4[facility] EevkobiXUMUVDOZZ6065-57-26 05:10:56751 [facility] IjlzoqkXRDSLTUDN9291-92-44 05:10:0015[facility] HermannCHEMISTRY 2011-05-23 05:10:36941Ckquhhwp BeietntTSXHXTSYY1769-12-54 05:10:0012[facility] HiwoevtIDMHKVLHE0996-67-00 05:10:86837Ellwbvsd OmuulxaQEQVMGBEU9247-09-22 05:10:000.36[facility] MtyvghwVJABRSLYCZ4477-83-74 05:10:65281Kbkdnhby [place] CZOBMBDSFS9729-14-63 05:10:0034.3[facility] QbpukruXJRIJMJKKK9536-74-17 05:10:00 7.9[facility] VizpsovGCYHVFNEDY8516-91-76 05:10:0013.0[facility] HermannHEMATOLOGY 2011-05-23 05:10:00 Test Item Value Reference Range Interpretation Comments MCH (test code = MCH) 29.5 pg 27.0-31.0 N [facility] SryerupRHROXWHBVG9384-04-83 05:10:0038.1[facility] HermannHEMATOLOGY 2011-05-23 05:10:0086.0[facility] RmdvezaVCOYDTJJQI0998-46-90 05:10:004.43[facility] RmpkyjcVSRNLBWPJR3473-19-49 05:10:005.9[facility] IozureyXQVICBQSUY2676-04-06 05:10:0014.0[facility] ZchpjjmZTPORJWVEF5512-86-28 05:10:000.0[facility] USDIZVRSOC1948-66-45 05:10:001.7[facility] QhthdzuTYWFYOQIYL6676-39-34 05:10:000.3 [facility] ZsoyhfbUGJBGLVPDJ9411-67-11 05:10:000.6[facility] HermannHEMATOLOGY 2011-05-23 05:10:003.8[facility] RgxdjfzMUDVXVOSQM8489-42-01 05:10:000.1[facility] KvqvyhqHHQEMHUBBU7533-05-66 05:10:004.7[facility] LifrfzqURLLGXQLZX3329-84-60 05:10:0028.9[facility] DlaqfrhBHJTTZPHXK3190-64-25 05:10:002.5[facility] [place] ACUTERIEYD0075-73-19 05:10:0063.3[facility] HbttwfaBZQQFXHWEF3160-10-62 05:10:000- 2 /HPF (05/22/2011 23:10:00)[facility] PipvjppWGQVUVNKRA1361-05-14 05:10:00 Occasional /HPF (05/22/2011 23:10:00)[facility] ZyxcugpFOGQBMTUTZ7499-65-61 05:10:00Negative (05/22/2011 23:10:00)[facility] IletxdgTQKTQTVZSX0014-75-06 05:10:00Negative *NA*(05/22/2011 23:10:00)[facility] SrwjyinDQCERTJPHH3499-76-59 05:10:00>=1000 mg/dL *ABN*(05/22/2011 23:10:00)[facility] HermannURINALYSIS 2011-05-23 05:10:00Negative (05/22/2011 23:10:00)[facility] HermannURINALYSIS 2011-05-23 05:10:00 Test Item Value Reference Range Interpretation Comments UA pH (test code = UA pH) 5.0 1 5.0-8.0 N [facility] ZtlvxlnXIBNRVECBU6917-69-18 05:10:003-5 /HPF (05/22/2011 23:10:00) [facility] AovpcmvQVIYAUBRWE8767-07-19 05:10:00Rare /LPF (05/22/2011 23:10:00) [facility] MfhaxspBJCVFWHOBK3366-00-00 05:10:000.2[facility] HermannURINALYSIS 2011-05-23 05:10:00Negative (05/22/2011 23:10:00)[facility]annURINALYSIS 2011-05-23 05:10:00Negative *NA*(05/22/2011 23:10:00)[facility]annURINALYSIS 2011-05-23 05:10:00Negative (05/22/2011 23:10:00)[facility] HermannURINALYSIS 2011-05-23 05:10:00Performed (05/22/2011 23:10:00)[facility] HermannURINALYSIS 2011-05-23 05:10:00Yellow *NA*(05/22/2011 23:10:00)[facility]annURINALYSIS 2011-05-23 05:10:00Clear (05/22/2011 23:10:00)[facility]annURINALYSIS 2011-05-08 00:16:00Negative (05/07/2011 18:16:00)[facility]annURINALYSIS 2011-05-08 00:16:000.2[facility] DymtkfeBXVMSLNZDH3498-64-96 00:16:00Negative *NA*(05/07/2011 18:16:00)[facility]RkohglkNWAGGLAGYA6633-27-49 00:16:00Large *ABN*(05/07/2011 18:16:00)[facility] HospitalQievxfdCSRSZXHJAB0904-31-38 00:16:006-10 /HPF *ABN*(05/07/2011 18:16:00)[facility] HospitalHrpzahvYSSVTZLUBS4359-75-87 00:16:00 Occasional /HPF (05/07/2011 18:16:00)[facility] HospitalLunriciRRYDYFSFTR7128-95-74 00:16:00Performed (05/07/2011 18:16:00)[facility] HospitalCsprzatSWTQIXERMJ8235-05-83 00:16:00Few /LPF (05/07/2011 18:16:00)[facility]gdinilRJDJMERCTS2549-18-44 00:16:00Negative (05/07/2011 18:16:00)[facility]NoopkypGKAVMVRHRA0582-69-54 00:16:0021-50 /HPF *ABN*(05/07/2011 18:16:00)[facility] HospitalURINALYS 2011-05-08 00:16:00Trace *ABN*(05/07/2011 18:16:00)[facility]URINALYS 2011-05-08 00:16:00>=1000 mg/dL *ABN*(05/07/2011 18:16:00)[facility] QIFJSYXKSV0859-43-79 00:16:00Negative (05/07/2011 18:16:00)[facility] TBJGMONMQE7712-20-36 00:16:00 Test Item Value Reference Range Interpretation Comments UA Spec Grav (test code = UA Spec 1.010 1 N Grav) [facility] HospitalWssykvwBKULLFDFPM8207-82-97 00:16:00Clear (05/07/2011 18:16:00)[facility] HospitalAcbubtkKZPFJKSVLB5381-99-21 00:16:00 Test Item Value Reference Range Interpretation Comments UA pH (test code = UA pH) 6.0 1 5.0-8.0 [facility]NifjffcDCXTKDTGHJ5552-45-43 00:16:00Yellow *NA*(05/07/2011 18:16:00) [facility] NWVLXGO7074-97-71 06:51:71008Qbjlqyyg Jona JKBMUCCRA1848-54-20 04:20:00Negative (04/19/2011 22:20:00)[facility] GXKXWVNFO9655-45-45 04:20:004.1[facility] WqanehnUFZUKLYYJ4538-83-19 04:20:0015 [facility] MzddoysFTOUDZJHQ3853-12-94 04:20:009.2[facility]annCHEMISTRY 2011-04-20 04:20:0096[facility] FrdthmgSFJHUKEAN7520-66-75 04:20:0016.2[facility] MorkovrBSAMRAHMP6499-81-95 04:20:0024[facility] HlmgklaZZJLFTHZX9019-35-80 04:20:004.0[facility] BhpethwWYBDDYADA5341-42-14 04:20:008.1[facility] PUSZCNYHK2744-11-85 04:20:000.4[facility] EvzaeekYQEFIKQXG4416-20-02 04:20:0092 [facility] HcfiuqkVWRWCJAAC9820-32-47 04:20:004[facility] VzlwjfrECMKRUBPI8206-84-84 04:20:0014[facility] EjyolugMDVYZTICX3366-38-42 04:20:001.0[facility] TUJCLYFLF4953-22-45 04:20:33011Gbbawmbs YircvxsIMGVEGHZS6489-00-20 04:20:000.8 [facility] GapjofkELUMEGIFR1610-22-43 04:20:0012[facility]annCHEMISTRY 2011-04-20 04:20:004.2[facility] AzowmjfIBMJCYYPX2023-92-00 04:20:41378Nsjtbtcu MrxjndqFHSDTEIDH0691-41-56 04:20:67447Xyqfqlfz EbgrvqeTJDMXXEAK1887-91-51 04:20:0070[facility] NigvvnaXGKJNJPUIC6148-27-20 04:20:007.9[facility] CLBMYISVQF1901-68-88 04:20:66744Pbraabdw MmbuzhfSOJCCYRAZS0684-46-13 04:20:00 4.54[facility] EqrcqxdRQUKYDTETT1741-53-10 04:20:0013.3[facility]annHEMATOLOGY 2011-04-20 04:20:00 Test Item Value Reference Range Interpretation Comments MCH (test code = MCH) 29.3 pg 27.0-31.0 N [facility] MlpfessJNJAGLHANU3132-70-86 04:20:0033.9[facility]annHEMATOLOGY 2011-04-20 04:20:0014.0[facility] JjofrwsPNSXUPWMVV9658-54-22 04:20:0039.3[facility] BsgyhmkUMSLTXRLOR9056-30-33 04:20:0086.5[facility] RhbiqvyUKCMATSOKO4079-06-00 04:20:008.6[facility] KoigbysQDPUEHTMKG4988-38-05 04:20:000.1[facility] TRDAHNHGHY5002-05-06 04:20:000.1[facility] EvvpswxFVETVHKWPR8945-00-61 04:20:000.9 [facility] CtjpgewAQUKATPYXB3000-21-19 04:20:0019.9[facility]annHEMATOLOGY 2011-04-20 04:20:005.4[facility] MubiazgKWNWJHIKGG2059-99-83 04:20:0073.1[facility] LrttidfHWTUDRZOWC2882-41-02 04:20:001.7[facility] LrrlckeTYGIGQHCGH0164-28-23 04:20:000.5[facility] UhmioouXPIVWAXQKX5885-33-21 04:20:000.7[facility] NJYAJLNKUS3428-41-41 04:20:006.3[facility] KkegvxhONZILZBLQK1524-56-29 02:29:00 Negative *NA*(04/19/2011 20:29:00)[facility] QwumlxsSSPZMTWFLQ1486-67-81 02:29:00 Negative *NA*(04/19/2011 20:29:00)[facility] InoqeflODLSAHOFVD3882-69-62 02:29:00 Negative (04/19/2011 20:29:00)[facility] WvxvgssKGGPBYTKEZ3277-69-21 02:29:00 Negative (04/19/2011 20:29:00)[facility] HsywrnvHUGTLLKUGE4898-63-72 02:29:00 Test Item Value Reference Range Interpretation Comments UA pH (test code = UA pH) 6.0 1 5.0-8.0 N [facility] HqvxlggRCKTROYJBX6777-41-47 02:29:00>=1000 mg/dL *ABN*(04/19/2011 20:29:00)[facility] UysjkyqXPJUMTJIGG6267-39-71 02:29:00Performed (04/19/2011 20:29:00)[facility] XdtuycsHMPXGEMAEU0344-16-12 02:29:00Negative (04/19/2011 20:29:00)[facility] SakpbbfFVFEMEHKJE7724-73-81 02:29:000.2[facility] HIBOHGXWAZ9872-50-28 02:29:00Negative (04/19/2011 20:29:00)[facility] QBVTPUGOVO8752-06-26 02:29:00Occasional /HPF (04/19/2011 20:29:00)[facility] AbtrxnpHIDRCSEMNV6279-69-66 02:29:00Occasional /LPF (04/19/2011 20:29:00) [facility] VampxthZAHVTBJTRZ4111-70-83 02:29:003-5 /HPF (04/19/2011 20:29:00) [facility] ThvnxmaAZFSOCBZBS8272-58-33 02:29:000-2 /HPF (04/19/2011 20:29:00) [facility] GyhmbehLVHGEAZHCF7065-35-47 02:29:00Clear (04/19/2011 20:29:00)[facility] RwpxwmfCDTISBKZOH4583-34-89 02:29:00Yellow *NA*(04/19/2011 20:29:00)[facility] SCITYOB7298-64-11 05:47:59990Fyyfwnrw HermannCHEMISTRY 2011-03-26 02:45:00<3[facility] UaedhfzZGILUYRAA5006-60-23 02:45:009.2[facility] DsfqretCGIRGYJSP9268-18-40 02:45:0014.0[facility] FlferelGITIXXGCT6843-36-12 02:45:0025[facility] LcyxewuKXXPIQKGD0485-82-59 02:45:0097[facility] YABKSDQBS7297-75-06 02:45:004.0[facility] SkmsqshYIGZBASZU0245-16-47 02:45:000.7 [facility] ZhpugbfOVYJJXZFI4916-53-77 02:45:98509Qkwyedem HermannCHEMISTRY 2011-03-26 02:45:000.5[facility] IaoelfaMHNSQVCYN9643-81-96 02:45:0069[facility] RznrzccSFNIGJKCD3843-15-85 02:45:0014[facility] GiwynwoPTYOBWLWK3590-26-86 02:45:003.9[facility] QufuilvHDWGQXFJK2678-78-76 02:45:007.8[facility] IHEEKPIKP5641-85-86 02:45:0019[facility] OajwwnwVHEKYIQMW5089-67-82 02:45:001.0 [facility] XbhyikdIEWWWSZOG8193-26-69 02:45:003.9[facility] HermannCHEMISTRY 2011-03-26 02:45:0013[facility] XtoyaonYQHVTJMHG3199-69-15 02:45:37884Jdevrqpa DdpikuhRAZIIRKNQ9556-49-23 02:45:48539Rxidcwnp TnsipmdPGSNFVRYDS3539-35-15 02:45:0012.7[facility] HqmbfyhCXVHYJQQSF4766-70-84 02:45:0014.0[facility] ECTIVVYCQV0316-87-95 02:45:0036.9[facility] MduvvruCYCTCJCIJM1892-41-82 02:45:00 85.5[facility] WxwjgsbXPLRHHRGJP8999-86-42 02:45:00 Test Item Value Reference Range Interpretation Comments MCH (test code = MCH) 29.5 pg 27.0-31.0 N [facility] WwkvgnpWGCBJBHBFR0575-51-70 02:45:0034.5[facility] HermannHEMATOLOGY 2011-03-26 02:45:17130Cpdvcsvw OwimwevDIRNGFRKEM3673-66-63 02:45:008.2[facility] AnqymafQMWTKNNQKJ7585-33-59 02:45:006.9[facility] XpvlkhoKVIGVEJJAW4006-90-45 02:45:004.32[facility] GpdemvoVWHDCWVKSH0469-27-02 02:45:000.5[facility] YWNCTFSQEG2011-71-57 02:45:004.6[facility] TfwqxmkRAHYTSLFND6911-73-94 02:45:001.9 [facility] SdrnvneVKXAZUDLAE7186-52-08 02:45:000.3[facility] HermannHEMATOLOGY 2011-03-26 02:45:000.1[facility] MzhabccEUVFEJYUYZ6566-41-56 02:45:000.0[facility] WwcafjyIHKTQXGKDH6680-76-09 02:45:0027.2[facility] FuzmilnFMDYLYPFTS4789-43-44 02:45:0066.3[facility] QgkgusnAGXJZAGFBL9522-75-95 02:45:004.8[facility] UANSSVVIHN1601-26-23 02:45:001.2[facility] JmfmjkwLJZBEFEWEG0314-78-95 02:00:00 Occasional /HPF (03/25/2011 20:00:00)[facility] MylipteFJCAVSQLZI5809-85-14 02:00:00Occasional /HPF *ABN*(03/25/2011 20:00:00)[facility] [facility] 2011-03-26 02:00:00Rare /LPF (03/25/2011 20:00:00)[facility] 02:00:000-2 /HPF (03/25/2011 20:00:00)[facility] 2011-[facility]26 02:00:000-2 /HPF (03/25/2011 20:00:00)[facility] 2011-[facility]-26 02:00:00Negative (03/25/2011 20:00:00)[facility] 2011-[facility]-26 02:00:00Performed (03/25/2011 20:00:00)[facility] 2011-03-26 02:00:00Negative (03/25/2011 20:00:00)[facility] 2011-03-26 02:00:00Negative (03/25/2011 20:00:00)[facility]annURINALYSIS 2011-03-26 02:00:000.2[facility] TijtcxsTGNYGHXXWP1134-19-48 02:00:00Yellow *NA*(03/25/2011 20:00:00)[facility] QlmtawnFRQHTOFXJF5001-92-44 02:00:00Clear (03/25/2011 20:00:00)[facility]rsevoiVSTACLMLUR8036-59-19 02:00:00Negative *NA*(03/25/2011 20:00:00)[facility] SouthEryeseiLXRWRAFLQI2760-07-39 02:00:00>=1000 mg/dL *ABN*(03/25/2011 20:00:00)[facility] SouthWypkmvxYYPSSTUFLL3033-53-62 02:00:00 Negative *NA*(03/25/2011 20:00:00)[facility] SouthXjjommgSGQNFXRHSM1598-30-57 02:00:00 Test Item Value Reference Range Interpretation Comments UA pH (test code = UA pH) 6.0 1 5.0-8.0 N [facility] WkvsnjmWXIPSOAOYA8439-80-38 02:00:00Negative (03/25/2011 20:00:00) [facility]annBEDSIDE GLUCOSE OLYXAIL2769-93-66 16:26:94526.0[facility] EOLDDKUSZ4328-81-66 15:30:00<0.6[facility] KzcarqtLSUZBCCVR1613-10-16 15:30:00 <0.5[facility] UfmyipgMPKCLKGRA0627-98-35 15:30:0077.0[facility]annCHEMISTRY 2011-02-11 15:30:0077.0[facility] AorovwbLAUKKEVRX8003-90-72 15:30:00<0.02 [facility]annBED[facility] GLU[facility]SE TOPYLJG7477-66-75 12:00:06463.0[facility] ABHIFGXBD9152-78-80 09:29:001.5[facility] BqiaylhMFPSERVSV9643-81-23 09:29:13919.0 [facility] ZjpdcysGHVQZOMKP7754-42-13 09:29:0011.0[facility]annCHEMISTRY 2011-02-11 09:29:007.8[facility] YhbfzpgXQEOWGZJV1431-44-01 09:29:0013.7[facility] QslgdedYWWMYISTI3898-05-64 09:29:000.6[facility] OmjwtyhYDTCSAOBL5442-95-85 09:29:37706.0[facility] DcfeuijGDJOFGEFS2827-10-98 09:29:003.7[facility] YVZTJSGBD6664-36-13 09:29:70106.0[facility] LufybmkAYJQZZKDS3670-81-87 09:29:00 24.0[facility] OqzabowJCAAIMWMH7732-45-27 09:29:00<0.02[facility] MUJBJWZIH8366-01-38 09:29:0071.0[facility] TosmvsiAPQCVEISQ0098-59-90 09:29:0071.0 [facility] NvmskyhLEZPRQGADZ7572-52-86 09:29:007.8[facility]annHEMATOLOGY 2011-02-11 09:29:0014.1[facility] FepcbihZSCPKISCGE6289-95-32 09:29:006.8[facility] XvbajmdQRLTBOCMFR9260-17-70 09:29:0011.8[facility] MndvjlxRYIMTDDONX9049-40-15 09:29:004.11[facility] HntbufwDSBNXYHRWJ0614-42-63 09:29:0035.3[facility] EMTMPZMBCN2686-91-30 09:29:00 Test Item Value Reference Range Interpretation Comments MCH (test code = MCH) 28.7 pg 27.0-31.0 N [facility] UajerdxZXCHGJIQDA7474-51-34 09:29:0085.7[facility]annHEMATOLOGY 2011-02-11 09:29:73616.0[facility] RrddzfnPXGBMNUYWG6405-78-15 09:29:0033.5 [facility] DjhgcxsIMPNXAHYUX8972-16-20 09:29:0026.3[facility]annHEMATOLOGY 2011-02-11 09:29:0065.8[facility] LjxgzoeEJWYCGSGGS7338-51-28 09:29:006.1[facility] ZuxqngwKFUCTDLMYI7215-72-14 09:29:001.2[facility] AnszhmhGHSPDDUOVR7016-80-98 09:29:000.6[facility] TjqhenxEUEUBEDIDP1422-86-57 09:29:004.5[facility] AFCSHTDPTX0311-34-01 09:29:001.8[facility] VyznhrlRHSOPZSZOL8389-05-13 09:29:000.4 [facility] AopwqvzUWSBTLWVGZ0985-14-36 09:29:000.0[facility]annHEMATOLOGY 2011-02-11 09:29:000.1[facility]annBEDSIDE GLUCOSE EXIRCWU1398-40-10 05:34:00 151.0[facility] PokbiacVHLCXFNBPJ1727-55-95 03:26:00>=1000 mg/dL *ABN*(02/10/2011 22:26:00) ??[facility] SouthEifgjrtCYSFIWXAXK2837-77-82 03:26:00 Negative mg/dL *NA*(02/10/2011 22:26:00) ??[facility] SouthBjpazndHBEUCDZZNH9907-18-82 03:26:00 Test Item Value Reference Range Interpretation Comments UA pH (test code = UA pH) 6.5 1 5.0-8.0 N [facility] SouthGxduecvUKAVKTCKFP5299-82-52 03:26:00Negative mg/dL (02/10/2011 22:26:00) ??[facility] SouthMgppqagVESZCJSTSQ9658-40-74 03:26:00Negative (02/10/2011 22:26:00) ??[facility] SouthJetschkQLFWKWWTYC9798-28-11 03:26:00Negative (02/10/2011 22:26:00) ??[facility] SouthQpzvmllHJOGZWYTWZ4830-98-81 03:26:000.2[facility] UZYAERIQFI5327-84-75 03:26:00Negative (02/10/2011 22:26:00) ??[facility] FZPERGSHJQ5093-15-39 03:26:00Negative *NA*(02/10/2011 22:26:00) ??[facility] SouthDgpgxmxEKVDOETHRO5534-82-30 03:26:00Clear (02/10/2011 22:26:00) ??[facility] ZsmxxazUVOTLCWSBK8113-74-66 03:26:00 Test Item Value Reference Range Interpretation Comments UA Spec Grav (test code = UA Spec 1.01 1 N Grav) [facility] KodtuasWHDYJYWOFH1978-63-85 03:26:00Yellow *NA*(02/10/2011 22:26:00) ?? [facility] LbovlidHOUKKJJTUU0724-00-43 03:26:000-2 /HPF (02/10/2011 22:26:00) ?? [facility] PdwinnbEQGITWDXNY2585-80-66 03:26:006-10 /HPF *ABN*(02/10/2011 22:26:00) ??[facility] HwkjosoJIFFUZACSH5183-32-25 03:26:00Few /LPF (02/10/2011 22:26:00) ??[facility] YtivavvHKHEIMUETC6290-33-75 03:26:00Few /HPF (02/10/2011 22:26:00) ??[facility] UhsxqjtMLQMIDJOPG0489-74-72 03:26:00Occasional /HPF *ABN*(02/10/2011 22:26:00) ??[facility] LwbfjnsAFYQUNCXWX2896-54-20 03:26:00 Performed (02/10/2011 22:26:00) ??[facility] AnvkmzyHHDPSUZVV3811-77-75 03:03:00 Negative *NA*(02/10/2011 22:03:00) ??[facility] OceqplkIWMXYYKZC3753-64-57 03:03:00<0.5[facility] IpcersyDCLFHAWIR0725-61-06 03:03:00<0.02[facility] EdfplrsOFJEEDWGF4674-99-07 03:03:007.0[facility] MkemsybIMVRJRZYB2602-35-77 03:03:004.0[facility] EtcsfnfYVGSMVVBS0259-01-12 03:03:007.5[facility] CBMULTYMQ4772-64-04 03:03:00 Test Item Value Reference Range Interpretation Comments A/G Ratio (test code = A/G Ratio) 1.1 1 0.7-1.6 N [facility] YvyckebTABEJDVSR7100-62-15 03:03:003.5[facility]annCHEMISTRY 2011-02-11 03:03:0014.0[facility] WgkawhyJPQOZHWAO3414-53-97 03:03:000.3[facility] AfrczzvWQWKLSCVV7505-47-32 03:03:0069.0[facility] OdpzkvpCXYRDILBT7068-76-85 03:03:0022.0[facility] PzdgwiuYRFDRPWZY2194-31-04 03:03:00 Test Item Value Reference Range Interpretation Comments B/C Ratio (test code = B/C Ratio) 20.0 1 6-25 N [facility] LwlkegbIBPAOOHBD9700-76-49 03:03:0096.0[facility]annCHEMISTRY 2011-02-11 03:03:008.7[facility] WykpxguJAMHGYAFQ0609-29-75 03:03:0017.3[facility] DcicchcSYHUDMQYE6068-09-22 03:03:28370.0[facility] VqzrsarNGLQAGRXE7431-21-46 03:03:51782.0[facility] IcdspntPOXOIDYKI2464-66-68 03:03:000.6[facility] YELSZGWCO1880-99-12 03:03:0012.0[facility] KijseqiSWGCHTABF4026-45-36 03:03:004.3 [facility] LqbjillZNDTQMSAJ7738-25-82 03:03:00Negative (02/10/2011 22:03:00) ?? [facility] RdftozrOIZFWYQYRG8091-59-88 03:03:003.9[facility]annHEMATOLOGY 2011-02-11 03:03:002.0[facility] IlmucqwXNMALONFCZ9443-77-84 03:03:000.5[facility] YdqqhvwCSVVUTMYCM1899-62-46 03:03:000.4[facility] QjigmfzKURGZJNGGF9813-51-98 03:03:000.1[facility] QlbaktyYRYSLNZCUU2837-27-43 03:03:0060.9[facility] WLSMQFFWAO3701-14-20 03:03:0031.7[facility] JyouhcaHSPKFPJDPS0797-23-14 03:03:00 1.2[facility] NohnrokUXZCYZXTQI0909-00-47 03:03:005.7[facility]annHEMATOLOGY 2011-02-11 03:03:000.0[facility] MatzcvrSWRWGYRZWV3684-92-80 03:03:00 Test Item Value Reference Range Interpretation Comments PT (test code = PT) 13.9 s 12.0-14.7 N [facility] SouthDciyuarMOGNXOOUIC3588-29-63 03:03:00 Test Item Value Reference Range Interpretation Comments PTT (test code = PTT) 28.4 s 22.9-35.8 N [facility] SouthKugdyvbMTLAIGYPHX5759-52-87 03:03:00 Test Item Value Reference Range Interpretation Comments INR (test code = INR) 1.07 1 0.85-1.17 N [facility] SouthQeevehyEDGYQETYEX5905-13-67 03:03:0033.7[facility]annHEMATOLOGY 2011-02-11 03:03:0014.3[facility] OjfnnkzXOXGDNCONR2145-17-46 03:03:47781.0 [facility] SouthOazhyllZMXHMLNICR5123-64-29 03:03:007.9[facility]annHEMATOLOGY 2011-02-11 03:03:0085.9[facility] SbkuimdMPKDQXIUDV6378-34-29 03:03:004.43[facility] DvqmhisVOEMSVQQAC0088-43-58 03:03:0038.1[facility] AzokujfLSKUCINOVL6158-27-63 03:03:0012.8[facility] RifncqpMIXSGXOBLG4217-63-82 03:03:00 Test Item Value Reference Range Interpretation Comments MCH (test code = MCH) 28.9 pg 27.0-31.0 N [facility] SouthWiddwbwKXZKGGZWJH9560-56-78 03:03:006.5[facility]annHEMATOLOGY 2011-02-11 03:03:001.1[facility] HermannBEDSIDE GLUCOSE QUZGAMX0320-71-18 16:39:00 175.0[facility]annBEDSIDE GLUCOSE GBPPJLZ7915-23-49 12:16:0088.0[facility]annBEDSIDE GLUCOSE TMRETIB9957-34-57 11:27:0070.0[facility]annCHEMISTRY 2011-01-15 10:45:00<0.6[facility] YshgowdFNXZVWSBK8143-05-44 10:45:00<0.5 [facility] DtaepscTPVHBUFPC1132-69-42 10:45:00<0.02[facility]annCHEMISTRY 2011-01-15 10:45:0088.0[facility] JnoorsdUDXZAKNLZ7397-17-68 10:45:000.6[facility] UlchrgdBIINMFMXV4881-09-23 10:45:003.4[facility] NsdxhidOBSRCAAYX2371-79-91 10:45:61005.0[facility] NpvaltdJHITQMHSX8297-90-93 10:45:0013.0[facility] MCKOAMXFU3040-50-64 10:45:0025.0[facility] BhjbpmdBEKHCYWMI7508-40-94 10:45:008.0 [facility] HrudijeXWOZIGNLP2438-79-95 10:45:0018.4[facility]annCHEMISTRY 2011-01-15 10:45:45838.0[facility] SwumqcaUINPZKZEU4730-70-53 10:45:06873.0 [facility] OpeevscUVFAMXMCI5879-64-09 10:45:0096.0[facility]annCHEMISTRY 2011-01-15 10:45:00 Test Item Value Reference Range Interpretation Comments CHD Risk (test code = CHD Risk) 3.8 1 3.90-5.80 L [facility] MkcbsztPZBLWHSYT1847-34-06 10:45:0045.0[facility]annCHEMISTRY 2011-01-15 10:45:65520.0[facility] XymsswsOJNOFERQU1145-91-14 10:45:71455.0 [facility] TpdmlfmFXWOLRKNN9582-73-21 01:43:00<0.5[facility]annCHEMISTRY 2011-01-15 01:43:00<0.6[facility] EpoqjwgDZFNWHHTV7551-47-01 01:43:0083.0 [facility] NwxgkdeJKXBXRKJR8871-37-72 01:43:00<0.02[facility]annCHEMISTRY 2011-01-14 21:36:00Negative (01/14/2011 16:36:00) ??[facility]annCHEMISTRY 2011-01-14 20:36:00<0.6[facility] DezcclsVXQTWPTLL2871-05-94 20:36:0013.0 [facility] UnajviuPWGKOPHNY0290-03-66 20:36:00<3.0[facility]annCHEMISTRY 2011-01-14 20:36:000.5[facility] JryhsbwKTXNAMSKJ6875-64-88 20:36:003.8[facility] WbacckmIVMSFKNDP1135-62-94 20:36:0017.0[facility] KkdbrlaDSUHDLBEO6520-42-50 20:36:0071.0[facility] UaymlihIDDWUHEOO6455-75-18 20:36:003.8[facility] SBBQUIJPG3316-00-22 20:36:91845.0[facility] UnrcffvCCICXULIJ6702-55-51 20:36:00 22.0[facility] GzorrfoUTYNBCSSG6903-45-34 20:36:0014.8[facility]annCHEMISTRY 2011-01-14 20:36:008.6[facility] EgtyhjlJEVKLJQDG8125-92-21 20:36:51038.0[facility] PytmyxnYUEMZZEVB5014-20-64 20:36:003.6[facility] HeetqhfMDKRMJPKU8372-52-30 20:36:00 Test Item Value Reference Range Interpretation Comments A/G Ratio (test code = A/G Ratio) 1.1 1 0.7-1.6 N [facility] ErexlayJIZQIHYID8323-78-75 20:36:00 Test Item Value Reference Range Interpretation Comments B/C Ratio (test code = B/C Ratio) 11.0 1 6-25 N [facility] UtjtalsTVVWZQHLV1454-23-98 20:36:007.4[facility]annCHEMISTRY 2011-01-14 20:36:66940.0[facility] PwpyprsMSJFJOUIH4678-93-45 20:36:009.0[facility] TxqngspOMQZVDYPO4412-52-95 20:36:000.8[facility] RnpjulwSRYYTQJYD4362-64-18 20:36:00<0.02[facility] CpbgzbcDEEVKMXUO9312-57-01 20:36:00<0.5[facility] MjxnfqvSGULOSXQQ6027-95-67 20:36:0078.0[facility] AwlggpdHJXKIUEMZM0047-90-89 20:36:000.3[facility] CidurclXLYFEBAJRD5114-16-53 20:36:001.7[facility] DZBAMYBNRR9533-38-25 20:36:003.5[facility] HwkrcrdAIKHYGDOGC6365-41-94 20:36:000.9 [facility] IlccayhXCIVKZPOLP8073-88-19 20:36:000.9[facility]annHEMATOLOGY 2011-01-14 20:36:000.0[facility] KrfjhmaZAEYRJKWEM2490-81-94 20:36:000.1[facility] TecbxavFKYRVKERVI1999-62-18 20:36:0030.7[facility] MzeljtxGJIGBQWAKO3943-20-60 20:36:0063.0[facility] PyivasyXWTFKJUDSJ9111-84-17 20:36:004.5[facility] QWGMWSKDTW7291-66-44 20:36:0014.6[facility] XoakjymXXCVIVMTLL5976-36-84 20:36:00 34.0[facility] GcxxojzGCPPVFVVHY3733-14-33 20:36:008.0[facility]annHEMATOLOGY 2011-01-14 20:36:01911.0[facility] WyxsrsfUSMDHZSMOV8394-22-98 20:36:00 Test Item Value Reference Range Interpretation Comments MCH (test code = MCH) 28.8 pg 27.0-31.0 N [facility] ZjauilbHMXIOXIEMB5428-45-94 20:36:0013.2[facility]annHEMATOLOGY 2011-01-14 20:36:004.6[facility] LtzekrqGFFYHFVGRN8511-01-88 20:36:0038.9[facility] JyqjiclEEUOZVZWYV2050-38-50 20:36:0084.6[facility] WbxtojgZLNLKDWCGR9762-28-77 20:36:005.emorial MgouyqrSFNMBZPXCL7504-97-75 20:36:00 Test Item Value Reference Range Interpretation Comments PT (test code = PT) 13.6 s 12.0-14.7 N [facility]angdDUYUHRJLGD2247-74-91 20:36:00 Test Item Value Reference Range Interpretation Comments PTT (test code = PTT) 30.2 s 22.9-35.8 N [facility] HospitalEgvahubLVHWSVPECF2063-31-26 20:36:00 Test Item Value Reference Range Interpretation Comments INR (test code = INR) 1.04 1 0.85-1.17 N [facility] HospitalQbyrojlDHYKHBZZUW5947-37-60 20:36:001.5[facility]
== END 2019-11-23 13:51 | disposition home or self-care (01) ==
LOC: ER 13:31
DX: L97.419 Non-pressure chronic ulcer of right heel and midfoot with unspecified severity (principal); E11.40 Type 2 diabetes mellitus with diabetic neuropathy, unspecified; Z88.5 Allergy status to narcotic agent; Z88.8 Allergy status to other drugs, medicaments and biological substances
CPT/HCPCS: 99282

== ENCOUNTER 2019-12-13 14:33 | Emergency (ER) | payer OTHER ==
--- OUTSIDE RECORDS SUMMARY | 2019-12-13 14:59 | XMS REPORT | Clinical Summary ---
:1965 Author Organization [facility] Address [address] [place] [address] Care Team Providers Name Role Phone Denae [...] Not on file Results Not on fileafter 12/12/2018
--- OUTSIDE RECORDS SUMMARY | 2019-12-13 15:01 | XMS REPORT | Continuity of Care Document ---
:1965 Author Organization [facility] [employer] Care Team Providers Name Role Phone [place] Unavailable Un available Problems Problem Status Onset Classification Date Comments Sourc e Date Reported Radiculopathy, 02/26/20 02/28/2017 [facility] cervical region 17 Hosp ital Hyperglycemia, 02/26/20 03/01/2017 [facility] unspecified 17 Hospital Fever, 02/26/20 03/01/2017 [facility] unspecified 17 Hospital Displaced 12/28/19 12/30/2016 [facility] [facility] unspecified 17 Hospital fracture of right lesser toe(s), initial encounter for closed fracture HURT TOES Active 12/28/[address] ABDOMINAL PAIN Active 02/07/20 [address], [place] EGD Active 02/05/20 [facility] 12 BLOOD SUGAR Active 11/28/19 [place] [...] [address] [place] BLEEDING ABD PAIN Active 01/06/20 [facility] 10 EAR PAIN Active 10/10/19 [facility] [place] UPPER ABDOMINAL Active 09/21/19 [facility] PAIN 10 [place] ABD PAIN, HIGH Active 08/16/19 [facility] SUGAR 10 [place] Abdominal pain Active Problem 02/19/2012 [facility], [place] Cellulitis Active Problem 02/19/2012 [facility], [place] Chest pain Active Problem 02/19/2012 [facility], [place] Hyperglycemia Active Problem 02/19/2012 [facility], [place] UTI - Urinary Active Problem 02/19/2012 tract infection [facility] [place] Diabetes mellitus Active Problem 03/01/2017 [facility] [place] (disorder[facility] Restless legs Active Problem 03/01/2017 [...] G.I. No Longer Cocktail = Active 2016 [place] antacid with Hospital simethicone 22.5 mL - lidocaine viscous 7.5 mL Zofran Notes: (Same Inactive as: Zofran) 2016 [place] MEDICATION Hospital WASTE Product Size: 4 mg Product Wasted: ___ mg Zofran Notes: (Same Inactive as: Zofran) 2016 [place] MEDICATION Hospital WASTE Product Size: 4 mg Product Wasted: ___ mg Morphine Notes: (Same Inactive as:MORPhine 2017 [place] Sulfate) Hospital Lidocaine Notes: Inactive Hydrochloride 10 Preservative 2016 [facility] MG/ML Injectable free. (Same Ho spital Solution as: Xylocaine MPF) Insulin regular 60 units) Inactive WASTE: F/P - 2017 [place] Black; E - Hospital Municipal Trash Bin Stable for 28 days at room temperature Expires in days from Date Sodium Chloride 2,000 mL, 1000 Inactive 0.9% (Bolus) IV ml/hr, Infuse 2017 [facility] Over: 2 hr, Hospital Route: IV, 2,000, Drug form: INJ, ONCE, Priority: STAT, Dosing Weight 49.545 kg, Start date: 02/25/17 20:22:00 TESTER V[employer] EQUIPMENT, Stop date: 02/25/17 20:22:00 TESTER V[employer]QUIPMENT ibuprofen 800 mg 800 mg = 1 [...] (Same No Longer as: Valium) Active 2016 [facility] Ketorolac 4 days No Longer MEDICATION Active 2016 [place] WASTE Hospital Product Size: 30 mg Product Wasted: ___ mg Ciprofloxacin 500 500 mg = 1 Active MH MG Oral Tablet tab, PO, Q12H, 2017 [facility] [Cipro] for UTI, X 3 Hospital day, # 6 tab, 0 Refill(s), Pharmacy: [facility]/pharmacy #[id number] Humalog 100 4 unit, SUB-Q, Active units/mL TID-Before 2017 [place] Meals, hold Hospital insulin injection if your blood sugar is less than 140 mg/dL., # 10 mL, 0 Refill(s), Pharmacy: [facility]/pharmacy #[id number] pantoprazole 40 40 mg = 1 tab, Active 01/26/ H [facility] Enteric Coated PO, Daily, # 2017 [facility] Tablet [Protonix] 30 tab, 0 Hosp ital Refill(s), Pharmacy: [facility]/pharmacy #[id number] Calcium Carbonate 500 mg = 1 Active 500 MG Chewable tab, PO, TID, 2017 [facility] Tablet # 6 tab, 0 Hospital Refill(s), Pharmacy: [facility]/pharmacy #[id number] Insulin Glargine 15 unit, Active 100 UNT/ML SUB-Q, Daily, 2016 [place] Injectable # 10 mL, 0 Hospital Solution [Lantus] Refill(s), Pharmacy: [facility]/pharmacy #[id number] Calcium Gluconate Notes: WASTE: Inactive F/P - Sink; E 2016 [place] - [facility] Hospital Trash Bin Calcium Carbonate Notes: (Same Inactive As: [facility]) 2017 [place] Calcium Hospital Carbonate 500 mg = 200 mg elemental calcium Dose = mg calcium carbonate ( mg elemental calcium) Insulin Glargine Notes: Same as No Longer 100 UNT/ML Lantus Active 2016 [place] Injectable Solostar PEN Hospital Solution [Lantus] Do not hold insulin without contacting prescriber "single patient use only" WASTE: F/P - Black; E - Municipal Trash Bin Stable for 28 days at room temperature. Expires in days from Date Requip Notes: (Same No Longer as: Requip) Active 2017 [place] [facility] Lyrica Notes: (Same No Longer as: Lyrica) Active 2017 [facility] Calcium Carbonate Notes: (Same Inactive As: Tums) 2017 [place] Calcium Hospital Carbonate 500 mg = 200 mg elemental calcium Dose = mg calcium carbonate ( mg elemental calcium) Protonix Notes: Tablet No Longer should not be Active 2017 [place] chewed or Hospital crushed. (Same as: Protonix) Magnesium Oxide Notes: (Same No Longer H as: Mag-Ox Active 2017 [place] 400) Magnesium Hospital oxide [id number] elemental magnesium Dose=____mg magnesium oxide (___mg elemental magnesium) Ketorolac 4 days No Longer MEDICATION Active 2017 [place] WASTE Hospital Product Size: 30 mg Product Wasted: ___ mg Docusate Notes: (Same No Longer as: Colace) Active 2016 [place] (Do Not Crush) [facility] Insulin Glargine 50 units, No Longer 100 UNT/ML SUB-Q, Daily, Active 2016 [place] Injectable 0 Refill(s) [facility] Solution [Lantus] ropinirole 2 MG 2 mg = 1 tab, Active Oral Tablet PO, Bedtime, 0 2016 [facility] [facility] [Requip] Refill(s) [facility] pregabalin 75 MG 75 mg = 1 cap, Active Oral Capsule PO, Bedtime, 0 2016 [facility] [Lyrica] Refill(s) [facility] Insulin Lispro 60 units) Inactive WASTE: F/P - 2017 [place] Black; E - Hospital Municipal Trash Bin Stable for 28 days at room temperature. Expires in days from Date Ceftriaxone Notes: (Same No Longer As: Rocephin). Active 2017 [place] Use with 100 Hospital mL NS and infuse over 30 min MEDICATION WASTE Product Size: 1000 mg Product Wasted: ___ mg Hydralazine Notes: (Same No Longer as: Active 2016 [place] Apresoline) [facility] Push over 5 minutes Glucagon 1 mg, Route: No Longer IM, Drug form: Active 2016 [place] PDR/INJ, PRN, Hospital Dosing Weight 51.449, kg, PRN Blood Glucose Results, Start date: 01/25/17 1:35:00 CDT, Duration: 30 day, Stop date: 02/24/17 0:34:00 TESTER V[employer] EQUIPMENT Insulin Lispro 60 units) No Longer WASTE: F/P - Active 2016 [place] Black; E - Hospital Municipal Trash Bin Stable for 28 days at room temperature. Expires in days from Date Dextrose 50% 25 gm, 50 mL, No Longer Syringe Route: IVP, Active 2016 [place] Drug Form: Hospital INJ, Dosing Weight 51.449, kg, PRN, PRN Blood Glucose Results, Start date: 01/25/17 1:35:00 CDT, Duration: 30 day, Stop date: 02/24/17 0:34:00 TESTER V[employer]RATOR EQUIPMENT Acetaminophen Notes: Do not No Longer exceed 4 Active 2017 [place] gm/day. (Same Hospital as: Tylenol) Acetaminophen 325 Notes: (Same Inactive MG / Hydrocodone as: [place] 2017 [facility] Bitartrate 5 MG 325/5) Do not H ospital Oral Tablet exceed 4gm/day of acetaminophen. Ondansetron Notes: (Same No Longer as: Zofran) Active 2017 [place] MEDICATION Hospital WASTE Product Size: 4 mg Product Wasted: ___ mg sodium chloride 1,000 mL, No Longer 0.9% 1000 ml INJ Rate: 75 Active 2017 [place] 1,000 mL ml/hr, Infuse Hospital over: 13.3 hr, Route: IV, Dosing Weight 51.449 kg, Total Volume: 1,000, Start date: 01/25/17 1:32:00 CDT, Stop date: 02/24/17 1:31:00 TESTER [employer] EQUIPMENT Saline Flush 0.9% Notes: (Same No Longer as: BD Active 2016 [place] Posiflush) Hospital Ketorolac 15 mg, Route: Inactive IV, ONCE, 2016 [place] Dosing Weight Hospital 52.273, kg, Start date: 01/25/17 0:00:00 CDT, Stop date: 01/25/17 0:00:00 CDT Famotidine 20 mg, Route: Inactive IVP, ONCE, 2017 [place] Dosing Weight Hospital 52.273, kg, Priority: STAT, [...] 4 mg, Route: Inactive IVP, Drug 2017 [place] form: INJ, Hospital ONCE, Dosing Weight 52.273, kg, Priority: STAT, Start date: 01/24/17 22:07:00 CDT, Stop date: 01/24/17 22:07:00 CDT Morphine Notes: (Same Inactive as:MORPhine 2017 [place] Sulfate) Hospital Acetaminophen 300 1 - 2 tab, PO, No Longer 12/27 MG / Codeine Q4H, PRN Pain, Active 2016 [facility] Phosphate 30 MG X 2 day, # 30 Ho spital Oral Tablet tab, 0 [Tylenol with Refill(s) Codeine #3] Acetaminophen 325 Notes: (Same Inactive MG / Hydrocodone as: [place] 2016 [facility] [facility] Bitartrate 5 MG 325/5) Do not H ospital Oral Tablet exceed 4gm/day [[place] 5/325] of acetaminophen. Sodium Chloride 500 mL, Rate: IV No Longer [facility] Sugar 0.9% (Bolus) IV 500 ml/hr, Active 2011 [facility] 500 mL Infuse over: 1 hr, Route: [...] ketorolac 30 mg, Route: IVP No Longer [facility] Sug ar IVP, Drug Active 2011 [place] form: INJ, ONCE, Dosing Weight 50, kg, Priority: STAT, Start date: 11/28/11 21:51:00, Stop date: 11/28/11 21:51:00 ondansetron 4 mg, Route: IVP No Longer [facility] IVP, ONCE, Active 2011 [facility] Dosing Weight 50, kg, Priority: STAT, Start date: 11/28/11 21:51:00, Stop date: 11/28/11 21:51:00 Sodium Chloride 1,000 mL, IVPB No Longer [facility] S ugar 0.9% (Bolus) IV Rate: 1,000 Active 2011 [facility] 1,000 mL ml/hr, Infuse over: 1 hr, Route: IVPB, kg, Total Volume: 1,000, Bolus Dose, Priority: STAT, Start date: 11/28/11 21:51:00, Duration: 1 doses or times, Stop date: 11/28/11 22:50:00 Saline Flush 0.9% 5 ml, Route: IVP No Longer [facility] Sugar IVP, Drug Active 2011 [place] Form: INJ, kg, PRN, PRN Line Flush, Start date: 11/28/11 21:51:00, Duration: 30 day, Stop date: 12/28/11 21:50:00 [place] 5/325 oral 1-2 tab, PO, PO Active [facility] Sugar tablet Q4-6H, PRN, 2011 tab, Pain, Substitution Allowed, Soft Stop Zofran ODT 4 mg 4 mg, 1 tab, PO Active [facility] Sugar oral tablet, PO, TID, PRN, 2011 disintegrating 10 tab, Nausea and Vomiting, Substitution Allowed morphine Sulfate 4 mg, 2 mL, IVP No Longer [facility] Route: IVP, Active 2011 [facility] Drug form: INJ, ONCE, Priority: STAT, Start date: 10/25/11 0:22:00, Stop date: 10/25/11 0:22:00 diphenhydrAMINE 25 mg, Route: IVP No Longer [place] Sugar IVP, ONCE, Active 2011 Priority: STAT, Start date: 10/25/11 0:06:00, Stop date: 10/25/11 0:06:00 morphine Sulfate 4 mg, 2 mL, IVP No Longer [facility] 10/24/ M H Sugar Route: IVP, Active 2011 [facility] Drug form: INJ, ONCE, Priority: STAT, Start [...] Longer [place] Sugar IVP, Drug Active 2011 [facility] Form: INJ, PRN, PRN Line Flush, Start [...] regular 5 unit, 0.05 IVP No Longer [facility] Sugar mL, Route: Active 2011 [facility] IVP, Drug form: SOLN, ONCE, Priority: STAT, Start date: 05/23/11 1:10:00, Stop date: 05/23/11 1:10:00 Visipaque 32,000 mg, 100 IV Active [facility] Suga r mL, Route: IV, 2011 [facility] Drug form: INJ, ONCE, Start date: 05/22/11 23:47:00, Stop date: 05/22/11 23:47:00 Insulin regular 5 unit, 0.05 SUB-Q No Longer [facility] Sugar mL, Route: Active 2011 [facility] SUB-Q, Drug form: SOLN, ONCE, Priority: STAT, Start date: 05/22/11 23:36:00, Stop date: 05/22/11 23:36:00 morphine Sulfate 2 mg, 0.4 mL, IVP No Longer [facility] Sugar Route: IVP, Active 2011 [facility] Drug form: INJ, ONCE, Priority: STAT, Start date: 05/22/11 23:04:00, Stop date: 05/22/11 23:04:00 ondansetron 4 mg, 2 mL, IVP No Longer [facility] Sug ar Route: IVP, Active 2011 [facility] Drug form: INJ, ONCE, Priority: STAT, Start date: 05/22/11 23:04:00, Stop date: 05/22/11 23:04:00 Sodium Chloride 500 mL, Rate: IV No Longer [facility] Sugar 0.9% (Bolus) IV 1,000 ml/hr, Active 2011 [facility] 500 mL Infuse over: 0.5 hr, Route: IV, Total Volume: 500, Bolus dose, Priority: STAT, Start date: 05/22/11 23:04:00, Duration: 1 doses or times, Stop date: 05/22/11 23:33:00 Saline Flush 0.9% 5 ml, Route: IVP No Longer [facility] Sugar IVP, Drug Active 2011 [facility] Form: INJ, PRN, PRN Line Flush, Start date: 05/22/11 23:04:00, Duration: 24 hr, Stop date: 05/23/11 23:03:00 Pyridium 200 mg 200 mg, 1 tab, PO Active [facility] Sugar oral tablet PO, TID, 9 2011 [facility] tab, Substitution Allowed Cipro 500 mg oral 500 mg, 1 tab, PO Active [facility] Sugar tablet PO, Q12H, 28 2011 [facility] tab, Substitution Allowed, TAB Pyridium 200 mg, 2 tab, PO No Longer [facility] Sug ar Route: PO, Active 2011 [facility] Drug form: TAB, ONCE, Priority: STAT, Start date: 05/07/11 20:03:00, Stop date: 05/07/11 20:03:00 Cipro 500 mg, 2 tab, PO No Longer [facility] S[place] r Route: PO, Active 2011 [facility] Drug form: TAB, ONCE, Priority: STAT, Start date: 05/07/11 20:03:00, Stop date: 05/07/11 20:03:00 Cipro 500 mg oral 500 mg, 1 tab, PO Active [facility] Sugar tablet PO, BID, 20 2011 [facility] tab, Substitution Allowed Zofran ODT 4 mg 4 mg, 1 tab, PO Active [facility] Sugar oral tablet, PO, TID, PRN, 2011 disintegrating 10 tab, Nausea and Vomiting, Substitution Allowed [place] 10/325 oral 1 tab, PO, PO Active [facility] Sugar tablet Q4-6H, PRN, 24 2011 [facility] tab, as needed for pain, Substitution Allowed, Maintenance hydromorphone 1 mg, 0.5 mL, IVP No Longer [facility] Sugar Route: IVP, Active 2011 [facility] Drug form: INJ, ONCE, Priority: STAT, Start date: 04/19/11 23:38:00, Stop date: 04/19/11 23:38:00 Insulin regular 10 unit, 0.1 IVP No Longer [facility] Sugar mL, Route: Active 2011 [facility] IVP, Drug form: SOLN, ONCE, Priority: STAT, [...] magnesium citrate 150 ml, PO, PO Active [facility] 03/26[facility] Sugar 8.85% oral liquid ONCE, 300 ml, 2010 [place] Substitution Allowed, Maintenance, LIQ MiraLax oral 17 gm, PO, PO Active [facility] 03/26[facility] Sugar powder for Daily, 255 gm, 2010 [place] reconstitution Substitution Allowed, PDR/REC Phenergan 25 mg 25 mg, 1 tab, PO Active [facility] Sugar oral tablet PO, Q6H, PRN, 2010 [place] 15 tab, Nausea, Substitution Allowed Vicodin 5/500 1 tab, PO, PO Active [facility] S[place] r oral tablet Q4-6H, PRN, 2010 tab, for Pain, Substitution Allowed, Maintenance Sodium Chloride 1,000 mL, IV No Longer [facility] S ugar 0.9% (Bolus) IV Rate: 1,000 Active 2010 1,000 mL ml/hr, Infuse over: 1 hr, Route: IV, Total Volume: 1,000, Bolus Dose, Priority: STAT, Start date: 03/25/11 21:24:00, Duration: 1 doses or times, Stop date: 03/25/11 22:23:00 Insulin regular 10 unit, 0.1 IVP No Longer [facility] 03/26/ H Sugar mL, Route: Active 2010 IVP, Drug form: SOLN, ONCE, Priority: STAT, Start date: 03/25/11 21:16:00, Stop date: 03/25/11 21:16:00 Omnipaque 300 30,000 mg, 100 IV Active [facility] Sugar mL, Route: IV, 2010 Drug form: SOLN, ONCE, Start date: 03/25/11 21:15:00, Stop date: 03/25/11 21:15:00 Saline Flush 0.9% 5 ml, Route: IVP No Longer [facility] Sugar IVP, Drug Active 2010 Form: INJ, PRN, PRN Line Flush, Start date: 03/25/11 20:19:00, Duration: 30 day, Stop date: 04/24/11 20:18:00 ondansetron 4 mg, 2 mL, IVP No Longer [place] Sug ar Route: IVP, Active 2010 Drug form: INJ, ONCE, Priority: STAT, Start date: 03/25/11 20:19:00, Stop date: 03/25/11 20:19:00 morphine Sulfate 4 mg, 0.8 mL, IVP No Longer [place] [facility] Route: IVP, Active 2010 Drug form: INJ, ONCE, Priority: STAT, Start date: 03/25/11 20:19:00, Stop date: 03/25/11 20:19:00 nitroglycerin 0.4 0.4 mg, 1 tab, SL No Longer 02/11 Sugar mg sublingual SL, Q5Min, Active 2010 tablet PRN, as needed for chest pain, Substitution Allowed aspirin 81 mg 1 tab, PO, PO Active [facility] [facility] tablet, chewable Daily, tab, 2010 [place] [facility] Substitution Allowed, CHEWTAB Cipro 250 mg, 1 tab, PO No Longer [facility] [place] Route: PO, Active 2010 [facility] Drug form: TAB, [id number], Start date: 02/11/11 11:00:00, Duration: 30 day, Stop date: 03/12/11 23:00:00 magnesium oxide 400 mg, 1 tab, PO No Longer [place] [facility] Route: PO, Active 2010 [facility] Drug form: TAB, Daily, Start date: 02/11/11 9:00:00, Duration: 30 day, Stop date: 03/12/11 9:00:00 Lantus 70 unit, SUB-Q No Longer [facility] Route: SUB-Q, Active 2010 [facility] Drug form: SOLN, Daily, Start date: 02/11/11 9:00:00, Duration: 30 day, Stop date: 03/12/11 9:00:00 Levemir FlexPen 70 unit, 0.7 SUB-Q No Longer [facility] mL, Route: Active 2010 SUB-Q, Drug form: INJ, Daily, Start date: 02/11/11 9:00:00, Duration: 30 day, Stop date: 03/12/11 9:00:00 Saline Flush 0.9% 5 ml, Route: IVP No Longer [place] [facility] IVP, Drug Active 2010 [facility] Form: INJ, Q12H, Start date: 02/11/11 9:00:00, [...] Route: PO, Active 2010 Drug form: TAB, [id number], Start date: 02/11/11 3:00:00, Duration: 30 day, [...] Sliding Scale - mL, Route: Active 2010 [facility] Low SUB-Q, Drug form: SOLN, Sliding Scale, PRN Blood Glucose Results, Start date: 02/11/11 2:05:00, Duration: 30 day, Stop date: 03/13/11 1:04:00 glucagon 1 mg, Route: IM No Longer [facility] IM, Drug form: Active 2010 [facility] PDR/INJ, PRN, PRN Blood Glucose Results, Start date: 02/11/11 2:05:00, Duration: 30 day, Stop date: 03/13/11 1:04:00 Dextrose 50% 25 gm, 50 ml, IVP No Longer [facility] Syringe Route: IVP, Active 2010 [facility] Drug Form: INJ, PRN, PRN Blood Glucose Results, Start date: 02/11/11 2:05:00, Duration: 30 day, Stop date: 03/13/11 1:04:00 Saline Flush 0.9% 5 ml, Route: IVP No Longer [facility] [facility] IVP, Drug Active 2010 [facility] Form: INJ, PRN, PRN Line Flush, Start date: 02/11/11 2:05:00, Duration: 30 day, Stop date: 03/13/11 1:04:00 nitroglycerin SL 0.4 mg, 1 tab, SL No Longer [facility] Tab Route: SL, Active 2010 [facility] Drug form: TAB, Q5Min, PRN Chest Pain, Start date: 02/11/11 2:05:00, Duration: 3 doses or times, Stop date: Limited # of times morphine Sulfate 2 mg, 0.4 mL, IVP No Longer [facility] [facility] Route: IVP, Active 2010 [facility] Drug form: INJ, Q15Min, PRN Chest Pain, Start date: 02/11/11 2:05:00, Duration: 2 doses or times, Stop date: Limited # of times acetaminophen 650 mg, 2 tab, PO No Longer [facility] Sugar Route: PO, Active 2010 [facility] Drug form: TAB, Q4H, PRN Headache, Start date: 02/11/11 2:05:00, Duration: 30 day, Stop date: 03/13/11 2:04:00 diphenhydrAMINE 25 mg, 1 tab, PO No Longer [facility] Route: PO, Active 2010 [facility] Drug form: TAB, Bedtime, PRN Insomnia, Start [...] [place] [facility] Route: PO, Active 2010 [facility] Drug form: TAB, Q8H, PRN Nausea & Vomiting, Start date: 02/11/11 2:05:00, Duration: 30 day, Stop date: 03/13/11 2:04:00 temazepam 15 mg, 1 cap, PO No Longer [place] Sug ar Route: PO, Active 2010 [facility] Drug form: CAP, Bedtime, PRN Insomnia, Start date: 02/11/11 2:05:00, Duration: 30 day, Stop date: 03/13/11 2:04:00 aspirin 325 mg 325 mg, 1 tab, PO No Longer [place] tablet Route: PO, Active 2010 [facility] Drug form: TAB, ONCE, Start date: 02/11/11 2:05:00, Stop date: 02/11/11 2:05:00 morphine Sulfate 2 mg, 0.4 mL, IVP No Longer [place] 02/11 Sugar Route: IVP, Active 2010 [facility] Drug form: INJ, ONCE, Priority: STAT, Start date: 02/11/11 0:37:00, Stop date: 02/11/11 0:37:00 Visipaque 48,000 mg, 150 IV No Longer [place] Sugar mL, Route: IV, Active 2010 [facility] Drug form: INJ, ONCE, Start date: 02/10/11 [...] H Sugar ointment Route: TOP, Active 2010 [facility] Drug Form: OINT, ONCE, STAT, Start date: 02/10/11 21:47:00, Stop date: 02/10/11 21:47:00 nitroglycerin 0.4 mg, 1 tab, SL No Longer [place] Sugar Route: SL, Active 2010 [facility] Drug form: TAB, Q5Min, PRN Chest Pain, (Hold if SBP < = 90 mmHg or if < = 100mmHg with symptomatic dizziness), Start date: 02/10/11 21:47:00, Duration: 3 doses or times, Stop date: Limited # of times morphine Sulfate 2 mg, Route: IVP No Longer [facility] Sugar IVP, ONCE, Active 2010 [facility] Priority: STAT, Start date: 02/10/11 21:47:00, Stop date: 02/10/11 21:47:00 Saline Flush 0.9% 5 ml, Route: IVP No Longer [place] 02/11 Sugar IVP, PRN, PRN Active 2010 [facility] Line Flush, Start date: 02/10/11 21:47:00, Duration: 30 day, Stop date: 03/12/11 20:46:00 aspirin 325 mg 325 mg, 1 tab, PO No Longer [facility] Sugar tablet, enteric Route: PO, Active 2010 [facility] coated Drug form: ECTAB, Daily, Start date: 01/16/11 9:00:00, Duration: 30 day, Stop date: 02/14/11 9:00:00 Requip 1 mg, 1 tab, PO No Longer [place] Sugar Route: PO, Active 2010 [facility] Drug form: TAB, Bedtime, Start date: 01/15/11 21:00:00, Duration: 30 day, Stop date: 02/13/11 21:00:00 Nitrostat 0.4 mg 1 tab, SL, SL Active [facility] S ug[place] sublingual tablet Q5Min, PRN, [address] [place] tab, Chest Pain, Substitution Allowed metoprolol 25 mg 12.5 mg, PO, PO Active [facility] Sugar oral tablet Q12H, 30 tab, 2010 Substitution Allowed, TAB aspirin 325 mg 9,750 mg, 30 PO Active [facility] S ugar tablet, enteric tab, PO, 2010 coated Daily, 30 tab, Substitution Allowed, ECTAB metoprolol 12.5 mg, 0.5 PO No Longer [place] Sug ar tab, Route: Active 2010 PO, Drug form: TAB, Q12H, Priority: NOW, Start date: 01/15/11 10:36:00, Duration: 30 day, Stop date: 02/14/11 9:00:00 Fioricet oral 1 tab, PO, PO Active [facility] 01/15[facility] Suga r tablet Q4H, PRN, 2010 tab, Headache, Substitution Allowed, Maintenance, TAB Fioricet 1 tab, Route: PO No Longer [facility] 01/15[facility] Suga r PO, Drug Form: Active 2010 TAB, Q4H, PRN Headache, Start date: 01/15/11 9:15:00, Duration: 30 day, Stop date: 02/14/11 9:14:00 aspirin 81 mg 81 mg, 1 tab, PO No Longer [facility] Sugar tablet, enteric Route: PO, Active 2010 coated Drug form: ECTAB, Daily, Start date: 01/15/11 9:00:00, Duration: 30 day, Stop date: 02/13/11 9:00:00 Requip 1 mg oral 1 mg, 1 tab, PO Active Sugar tablet PO, Bedtime, 2010 Substitution Allowed ibuprofen 400 mg 400 mg, 1 tab, PO No Longer [place] 01/15[facility] Sugar oral tablet Route: PO, Active 2010 Drug form: TAB, Q8H, Start date: 01/15/11 0:00:00, Duration: 30 day, Stop date: 02/13/11 16:00:00 Saline Flush 0.9% 5 ml, Route: IVP No Longer [place] 01/15[facility] Sugar IVP, Drug Active 2010 Form: INJ, Q12H, Start date: 01/14/11 21:00:00, Duration: 30 day, Stop date: 02/13/11 9:00:00 Levemir FlexPen 70 unit, 0.7 SUB-Q No Longer [place] 01/15/ H Sugar mL, Route: Active 2010 [facility] SUB-Q, Drug form: INJ, Bedtime, Start date: 01/14/11 21:00:00, Duration: 30 day, Stop date: 02/12/11 21:00:00 Lantus 70 unit, SUB-Q No Longer [place] [facility] Route: SUB-Q, Active 2010 [facility] Bedtime, Start date: 01/14/11 21:00:00, Duration: 30 day, Stop date: 02/12/11 21:00:00 glucagon 1 mg, Route: IM No Longer [place] Sugar IM, Drug form: Active 2010 [facility] PDR/INJ, PRN, PRN Blood Glucose Results, Start date: 01/14/11 19:22:00, Duration: 30 day, Stop date: 02/13/11 19:21:00 Insulin (Novolog) 6 unit, 0.06 SUB-Q No Longer [place] Sugar Sliding Scale - mL, Route: Active 2010 [facility] Very High SUB-Q, Drug form: SOLN, Sliding [...] Longer [place] Sugar IVP, Drug Active 2010 [facility] Form: INJ, PRN, PRN Line Flush, Start [...] 400 mg 1 tab, PO, PO Active [facility] S ugar oral tablet Q4H, PRN, 2010 tab, Pain, Substitution Allowed acetaminophen-hyd 1 tab, PO, PO Active [facility] Sugar rocodone 500 mg-5 Q4-6H, PRN, 2010 [...] type Reported Ritalin Assertion Drug Active allergy [facility] Immunizations No Data Provided for This Section Results Order Name Results Value Reference Date Interpretation Comments Nely rce Range BACTERIAL Strep Negative Negative 02/26 [place] - SEROLOGY pneumoniae (02/25/17 9:02 PM) /2016 Hospital Ag BACTERIAL Source Strep Cerebral 02/26 [facility] - SEROLOGY Spinal /2016 Hospital Fluid BODY Tube Num CSF 1 02/26 [place] FLUIDS /2016 Hospital BODY Clarity CSF Clear Clear 02/26 [facility] [place] FLUIDS (02/25/17 9:02 PM) /2016 [facility] BODY Color CSF Colorless Colorless 02/26 [place] FLUIDS (02/25/17 9:02 PM) /2016 [facility] BODY Supernat CSF Colorless Colorless 02/26 [facility] FLUIDS (02/25/17 9:02 PM) /2016 [facility] BODY WBC CSF 2 0 - 53 02/26 [facility] [place] FLUIDS /2016 Hospital BODY RBC CSF 1 0 - 03 02/26 [facility] [place] FLUIDS /2016 Hospital BODY RBC CSF 1 0 - 03 02/26 [place] FLUIDS /2017 Hospital BODY WBC CSF 2 0 - 53 02/26 [place] FLUIDS /2016 Hospital BODY Supernat CSF Colorless Colorless 02/26 [facility]UIDS (02/25/17 9:02 PM) /2016 [facility]pi [facility] BODY Clarity CSF Clear Clear 02/26 [place] FLUIDS (02/25/17 9:02 PM) /2016 [facility] BODY Tube Num CSF 4 02/26 [place] FLUIDS /2016 Hospital BODY Color CSF Colorless Colorless 02/26 [place] FLUIDS (02/25/17 9:02 PM) /2016 [facility] BODY Glucose CSF 219 45 - 80 02/26 [facility] [place] FLUIDS Comment: Hospital Critical Result(s) called to Charlotte Hodge at _02/25/2017 21:45 bybz_. Read back OK.

NOTE: RESULTS autoverfied BODY Protein CSF 55 15 - 45 02/26 [place] FLUIDS /2016 Hospital FUNGAL - Crypto Ag Negative Negative 02/26 [place] SEROLOGY CSF (02/25/17 9:02 PM) /2016 [facility]osp [facility] IMMUNOLOGY VDRL Scr CSF Non Reactive Non 02/26 [place] (02/25/17 9:02 PM) Reactive /2016 [facility] [...] curve analysis. MOLECULAR Source HSV Cerebral 02/26 [place] DIAGNOSTIC Spinal /2016 Hospital Fluid VIRAL - [facility] Negative [facility] (02/25/17 9:02 PM) [facility] CHEM PANEL A/G Ratio 0.9 0.7 - 1.6 02/26 [facility] CHEM PANEL B/C Ratio 23 6 - 25 02/26 [facility] CHEM PANEL Globulin 4.3 2.7 - 4.2 02/26 [facility] CHEM PANEL AGAP 11.3 10.0 - 02/26 [facility] 20.0 [facility] CHEM PANEL eGFR 101 02/26 [facility] [place] Comment: The Hospital eGFR is calculated using [...] PANEL BUN 16 7 - 22 02/26 [facility] CHEM PANEL ALANINE 17 0 - 65 02/26 [facility]RANS[facility] Hospital RASE CHEM PANEL Total 8.2 6.4 - 8.4 02/26 [facility] CHEM PANEL Potassium 4.3 3.5 - 5.1 02/26 [facility] L[facility] /2016 [facility] CHEM PANEL Sodium Lvl 130 135 - 145 02/26 [facility] /2016 [facility] CHEM PANEL Creatinine 0.70 0.50 - 02/26 [place] Lvl 1.40 /2016 Hospital CHEM PANEL Glucose Lvl 340 70 - 99 02/26 [facility] /2016 [facility] CHEM PANEL Calcium Lvl 8.9 8.5 - 10.5 02/26 [facility] /2017 [facility] CHEM PANEL Chloride Lvl 97 95 - 109 02/26 [facility] /2016 [facility] CHEM PANEL CO2 26 24 - 32 02/26 [place] /2017 Hospital CHEM PANEL Alk Phos 158 39 - 136 02/26 [place] /2017 Hospital CHEM PANEL ASPARTATE 16 0 - 37 02/26 [place] TRANSAMINASE Hospital CHEM PANEL Albumin Lvl 3.9 3.5 - 5.0 02/26 [facility] /2016 [facility] CHEM PANEL Lactic Acid 1.8 0.5 - 2.2 02/26 [facility] Lvl /2016 Hospital HEMATOLOGY Platelet 305 133 - 450 02/26 [place] /2017 Hospital HEMATOLOGY MCV 82.2 80.0 - 02/26 [place] 98.0 /2016 Hospital HEMATOLOGY Hct 37.1 36.0 - 02/26 [place] 48.0 /2016 Hospital HEMATOLOGY MPV 7.4 7.4 - 10.4 02/26 [place] /2017 Hospital HEMATOLOGY RDW 14.1 11.5 - 02/26 [place] 14.5 /2016 Hospital HEMATOLOGY MCH 27.6 27.0 - 02/26 [place] 31.0 /2016 Hospital HEMATOLOGY MCHC 33.6 32.0 - 02/26 [place] 36.0 /2017 Hospital HEMATOLOGY RBC X 10x6 4.52 4.20 - 02/26 [place] 5.40 /2016 Hospital HEMATOLOGY Hgb 12.5 12.0 - 02/26 [place] 16.0 /2016 Hospital HEMATOLOGY WBC X 10x3 [...] Hospital HEMATOLOGY Segs 53.4 45.0 - 02/26 [place] 75.0 /2016 Hospital HEMATOLOGY Lymphocytes 39.1 20.0 [...] AND UA 0.2 0.1 - 1.0 02/26 [place] STOOL Urobilinogen /2016 Hospital URINE AND UA Nitrite Negative Negative 02/26 [facility] (02/25/17 7:42 PM) [facility]pi [facility] URINE AND UA Bili Negative Negative 02/26 [place] STO[facility] *NA* /2016 Hospital (02/25/17 7:42 PM) URINE AND UA Ketones Negative Negative 02/26 [facility] *NA* /2016 [facility] (02/25/17 7:42 PM) URINE AND UA Bacteria Many /HPF None Seen 02/26 [facility] /HPF /2016 Hospital URINE AND UA WBC 0-2 /HPF None Seen 02/26 [place] STOOL /HPF /2016 Hospital URINE AND UA RBC 0-2 /HPF 0 - 2 02/26 [place] STOOL /2016 Hospital URINE AND UA Leuk Est Negative Negative 02/26 [facility] (02/25/17 7:42 PM) /2016 [facility]pi [facility] URINE AND UA Sq Epi Few /LPF Few /LPF 02/26 [place] ST[facility]OL Hospital URINE AND UA Blood Negative Negative 02/26 [place] [facility] (02/25/17 7:42 PM) [facility]pi [facility] URINE AND UA Glucose >=1000 Negative 02/26 [place] STOOL mg/dL mg/dL /2016 Hospital URINE AND UA Protein Negative Negative 02/26 [facility] (02/25/17 7:42 PM) [facility]pi [facility] URINE AND UA pH 6.0 5.0 - 8.0 02/26 [place] STOOL /2016 Hospital URINE AND UA Spec Grav 1.010 <=1.030 02/26 [facility] URINE AND UA Color Yellow Yellow 02/26 [place] STOOL *NA* /2016 Hospital (02/25/17 7:42 PM) URINE AND UA Turbidity Slight Cloudy Clear 02/26 [place] STOOL (02/25/17 7:42 PM) Hospi [facility] VIRAL - Influ B Negative Negative 02/26 [place] SEROLOGY (02/25/17 7:42 PM) [facility] VIRAL - Influ A Negative Negative 02/26 [place] SEROLOGY (02/25/17 7:42 PM) [facility] CHEM PANEL eGFR 121 01/26 [place] Comment: The Hospital eGFR is calculated using [...] Alk Phos 165 39 - 136 01/26 [facility] CHEM PANEL B/C Ratio 12 6 - 25 01/26 [facility] CHEM PANEL Globulin 3.3 2.7 - 4.2 01/26 [facility] CHEM PANEL Albumin Lvl 2.4 3.5 - 5.0 01/26 [facility] CHEM PANEL Total 5.7 6.4 - 8.4 01/26 [facility] CHEM PANEL AGAP 9.7 10.0 - 01/26 [facility] 20.0 [facility] CHEM PANEL Glucose Lvl 261 70 - 99 01/26 [facility] CHEM PANEL Calcium Lvl 7.4 8.5 - 10.5 01/26 [facility] CHEM PANEL A/G Ratio 0.7 0.7 - 1.6 01/26 [facility] CHEM PANEL Creatinine 0.40 0.50 - 01/26 [facility] [place] Lvl 1.40 Hospital CHEM PANEL BUN 5 7 - 22 01/26 [place] 2017 Hospital CHEM PANEL ASPARTATE 37 0 - 37 01/26 [place] TRANSAMINASE Hospital CHEM PANEL ALANINE 44 0 - 65 01/26 [place] AMINOTRANSFE [facility] RASE CHEM PANEL Potassium 3.7 3.5 - 5.1 01/26 [facility] CHEM PANEL Sodium Lvl 137 135 - 145 01/26 [facility] CHEM PANEL CO2 25 24 - 32 10 [facility] CHEM PANEL Chloride Lvl 106 95 - 109 01/26 [facility] CARDIAC Troponin-I <0.02 0.00 - 01/25 [place] ENZYMES 0.40 [facility] PARATHYROI Ca Norm WB 0.99 1.05 - 01/25 [place] D PROFILE 1. [facility] PARATHYROI Ca Ion WB 1.01 1.05 - 01/25 [place] D PROFILE 1. Hospital CHEM PANEL Albumin Lvl 2.6 3.5 - 5.0 01/25 [facility] CHEM PANEL eGFR 112 01/25 [facility] [place] Comment: The Hospital eGFR is calculated using [...] CHEM PANEL Creatinine 0.50 0.50 - 01/25 [place] Lvl 1.40 [facility] CHEM PANEL Sodium Lvl 135 135 - 145 01/25 [facility] CHEM PANEL Potassium 3.6 3.5 - 5.1 01/25 [facility] CHEM PANEL CO2 25 24 - 32 01/25 [facility] CHEM PANEL Chloride Lvl 105 95 - 109 01/25 [facility] CHEM PANEL AGAP 8.6 10.0 - 01/25 [facility] 20.0 [facility] CHEM PANEL Calcium Lvl 6.9 8.5 - 10.5 01/25 [facility] Comment: Hospital Critical Result(s) called to uyen martinez_ at _01/25/2017 15:47 by_bz. Read back OK. CHEM PANEL Glucose Lvl 263 70 - 99 01/25 [facility] CHEM PANEL BUN 8 7 - 22 01/25 [facility] CHEM PANEL Phosphorus 2.7 2.5 - 4.5 01/25 [facility] CHEM PANEL eGFR 106 01/25 [facility] [place] Comment: The Hospital eGFR is calculated using [...] CHEM PANEL Creatinine 0.60 0.50 - 10 [place] Lvl 1.40 [facility] CHEM PANEL BUN 9 7 - 22 01/25 [facility] CHEM PANEL Glucose Lvl 405 70 - 99 01/25 [facility] Comment: Hospital Critical Result(s) called to Dung Mullins at 01/25/2017 04:39 by CV. Read back OK. CHEM PANEL AGAP 12.5 10.0 - 01/25 [facility] 20.0 [facility] CHEM PANEL Potassium 3.5 3.5 - 5.1 01/25 [facility] CHEM PANEL Chloride Lvl 102 95 - 109 01/25 [facility] CHEM PANEL CO2 23 24 - 32 01/25 [facility] CHEM PANEL Calcium Lvl 7.1 8.5 - 10.5 01/25 [facility] CHEM PANEL Sodium Lvl 134 135 - 145 01/25 [facility] CHEM PANEL Magnesium 1.7 1.8 - 2.4 01/25 [facility] HEMATOLOGY MPV 7.4 7.4 - 10.4 01/25 [facility] HEMATOLOGY RDW 13.6 11.5 - 01/25 [facility] 14.5 Hospital HEMATOLOGY Platelet 244 133 - 450 01/25 [place] 2017 Hospital HEMATOLOGY MCHC 33.4 32.0 - 01/25 [facility] 36.0 Hospital HEMATOLOGY MCV 82.5 80.0 - 01/25 [facility] 98.0 Hospital HEMATOLOGY MCH 27.6 27.0 - 01/25 [place] 31.0 Hospital HEMATOLOGY Hgb 10.7 12.0 - 01/25 [facility] 16.0 Hospital HEMATOLOGY Hct 32.0 36.0 - 01/25 [facility] 48.0 Hospital HEMATOLOGY WBC X 10x3 5.5 3.7 - 10.4 01/25 [facility] HEMATOLOGY RBC X 10x6 3.88 4.20 - 01/25 [facility] 5.40 Hospital HEMATOLOGY Monocytes 7.2 2.0 - [...] Hospital HEMATOLOGY Segs 55.0 45.0 - 01/25 [facility] 75.0 Hospital SPECIAL Hgb A1C >16.0 % <=5.6 % 01/25 [place] CHEMISTRY Hospital URINE AND UA Sq Epi Occasional Few /LPF 01/25 [facility] STOOL /LPF /2016 Hospital URINE AND UA WBC 11-20 /HPF None Seen 01/25 [facility] /HPF /2016 Hospital URINE AND UA Bacteria Moderate None Seen 01/25 [facility]OL /HPF /HPF /2016 Hospital URINE AND UA RBC 0-2 /HPF 0 - 2 01/25 [place] STOOL /2016 Hospital URINE AND UA Leuk Est Negative Negative 01/25 [facility] (01/24/17 11:54 PM) /2016 [facility]osp [facility] URINE AND UA Nitrite Positive Negative 01/25 [facility] *ABN* /2016 Hospital (01/24/17 11:54 PM) URINE AND UA Blood Negative Negative 01/25 [place] STOOL (01/24/17 11:54 PM) [facility]osp [facility] URINE AND UA Bili Negative Negative 01/25 [place] STOOL *NA* /2016 Hospital (01/24/17 11:54 PM) URINE AND UA Glucose >=1000 Negative 01/25 [place] STOOL mg/dL mg/dL /2016 Hospital URINE AND UA Protein Negative Negative 01/25 [facility] (01/24/17 11:54 PM) [facility]osp [facility] URINE AND UA 0.2 0.1 - 1.0 01/25 [place] STOOL Urobilinogen /2016 Hospital URINE AND UA Ketones Negative Negative 01/25 [facility] *NA* /2016 Hospital (01/24/17 11:54 PM) URINE AND UA pH 5.5 5.0 - 8.0 01/25 [place] STOOL /2016 Hospital URINE AND UA Spec Grav <=1.005 <=1.030 01/25 [facility] *NA* /2016 Hospital (01/24/17 11:54 PM) URINE AND UA Color Yellow Yellow 01/25 [place] STOOL *NA* /2016 Hospital (01/24/17 11:54 PM) URINE AND UA Turbidity Clear Clear 01/25 [facility] (01/24/17 11:54 PM) [facility]osp [facility] CARDIAC Total CK 62 12 - 191 01/25 [facility] ENZYMES Hospital CARDIAC CK MB <1.0 0.5 - 3.6 01/25 [facility] ENZYMES [facility] CARDIAC Troponin-I <0.02 0.00 - 01/25 [place] ENZYMES 0.40 Hospital CARDIAC CK-MB INDEX <1.6 0.0 - 2.5 01/25 [facility]YMES [facility] CHEM PANEL ASPARTATE 14 0 - 37 01/25 [place] TRANSAMINASE Hospital CHEM PANEL Bili Total 0.5 0.2 - 1.3 01/25 [facility] CHEM PANEL ALANINE 37 0 - 65 01/25 [place] AMINOTRANSFE Hospital RASE CHEM PANEL Alk Phos 222 39 - 136 01/25 [facility] CHEM PANEL A/G Ratio 0.7 0.7 - 1.6 01/25 [facility] CHEM PANEL Globulin 4.7 2.7 - 4.2 01/25 [facility] CHEM PANEL Albumin Lvl 3.5 3.5 - 5.0 01/25 [facility] CHEM PANEL B/C Ratio 16 6 - 25 01/25 [place] 2017 Hospital CHEM PANEL Total 8.2 6.4 - 8.4 01/25 [facility] CHEM PANEL Lipase Lvl 168 73 - 393 01/25 [facility] 2017 [facility] HEMATOLOGY Hgb 13.7 12.0 - 01/25 [place] 16.0 Hospital HEMATOLOGY Hct 41.6 36.0 - 01/25 [place] 48.0 Hospital HEMATOLOGY MCV 83.6 80.0 - 01/25 [place] 98.0 /2016 Hospital HEMATOLOGY MCH 27.5 27.0 - 01/25 [place] 31.0 /2017 Hospital HEMATOLOGY MCHC 32.9 32.0 - 01/25 [place] 36.0 /2016 Hospital HEMATOLOGY RDW 13.6 11.5 - 10 [facility] 14.5 [facility] HEMATOLOGY Platelet 314 133 - 450 01/25 [place] /2017 Hospital HEMATOLOGY MPV 8.1 7.4 - 10.4 01/25 [place] /2017 Hospital HEMATOLOGY WBC X 10x3 5.8 3.7 - 10.4 01/25 [facility] /2017 Hospital HEMATOLOGY RBC X 10x6 4.97 4.20 - 01/25 [place] 5.40 /2016 Hospital HEMATOLOGY Monocytes # 0.4 [...] Hospital HEMATOLOGY Segs 59.9 45.0 - 01/25 [place] 75.0 /2016 Hospital HEMATOLOGY Lymphocytes 31.7 20.0 - 01/25 [facility] 40.0 [facility] BEDSIDE Comment1 Notify 02/05 NA GLUCOSE KIRIT/ /2011 [facility] TESTING BEDSIDE Gluc POC 293 70 - 99 02/05 HI <sup>1</sup>I GLUCOSE [facility] nterpretive [facility] TESTING Data: Upper Reportable Limit: 200 [...] values reflect the clinical guidelines
of the [employer]. CHEMISTRY Chloride Lvl 98 95 [...] values reflect the clinical guidelines
of the [employer]. CHEMISTRY Chloride Lvl 100 95 [...] - 99 10/24 CRIT <sup>3</sup>I [facility] GLUCOSE [facility] nterpretive [place] TESTING Data: Upper Reportable Limit: 200 mg/dL. BEDSIDE Gluc POC 273 65 - 110 05/23 HI <sup>1</sup>I [facility] [place] TEST[facility] Data: Upper Reportable Limit: 200 mg/dL. BEDSIDE Comment1 Notify 05/23 NA [place] GLUCOSE RN/ [place] TESTING BEDSIDE Gluc POC >400 65 - 110 05/23 CRIT <sup>2</sup>I [facility] [place] TEST[facility] Data: Upper Reportable Limit: [...] on the clinical recommendatio ns of the [employer]. CHEMISTRY BUN 12 7 - [...] on the clinical recommendatio ns of the [employer]. CHEMISTRY Creatinine 0.8 0.5 - [...] on the clinical recommendatio ns of the [employer]. CHEMISTRY Lipase Lvl 171 73 [...] [place] (03/25/2011 20:00:00) [place] URINALYSIS U[facility] [place] Yeast Occasional /HPF None Seen 03/26 ABN [...] on the clinical recommendatio ns of the [employer]. CHEMISTRY BUN 11.0 7 - [...] gar (02/10/2011 22:26:00) ?? [place] URINALYSIS UA [place] Yeast Occasional /HPF >None Seen 02/11 ABN [...] on the clinical recommendatio ns of the [employer]. CHEMISTRY Sodium Lvl 131.0 135 [...] - 110 01/15 HI <sup>1</sup>I [place] GLUCOSE [facility] nterpretive [place] TESTING Data: Upper Reportable Limit: 200 mg/dL. BEDSIDE Comment1 Notify 01/15 NA [place] GLUCOSE RN/MD [place] TESTING BEDSIDE Comment1 Notify 01/15 NA [place] GLUCOSE RN/MD [place] TESTING BEDSIDE Gluc POC 88.0 65 - 110 01/15 Normal <sup>2</sup>I [place] GLUCOSE [facility] nterpretive [place] TESTING Data: Upper Reportable Limit: 200 mg/dL. BEDSIDE Comment1 Notify 01/15 NA [place] GLUCOSE RN/MD [place] TESTING BEDSIDE Gluc POC 70.0 65 - 110 01/15 Normal <sup>3</sup>I [place] GLUCOSE [facility] nterpretive [place] TESTING Data: Upper Reportable Limit: [...] on the clinical recommendatio ns of the [employer]. CHEMISTRY LDL 96.0 0 - [...] on the clinical recommendatio ns of the [employer]. CHEMISTRY BUN 9.0 7 - [...] 27.0 - 01/14 Normal [place] 31.0 /2010 [facility] HEMATOLOGY Hgb 13.2 12.0 - 10 Normal [place] 16.0 /2010 [facility] HEMATOLOGY RBC 4.6 4.20 - 01/14 Normal [place] 5.40 /2010 [facility] HEMATOLOGY Hct 38.9 36.0 - 01/14 Normal [place] 48.0 /2010 [facility] HEMATOLOGY MCV 84.6 81.0 - 01/14 Normal [place] 99.0 /2010 [facility] HEMATOLOGY WBC 5.6 3.7 - 10.4 10 Normal [place] /2010 [facility] HEMATOLOGY PT 13.6 12.0 - 01/14 Normal [place] 14.7 /2010 [facility] HEMATOLOGY PTT 30.2 22.9 - 10 Normal <sup>10</sup> Sean r 35.8 [place] [place] Data: Heparin Therapeutic Range: 57 - 92 Seconds HEMATOLOGY INR 1.04 0.85 - 01/14 Normal <sup>8</sup>I [facility] r 1.17 nterpretive [facility] Data: RECOMMENDED RANGES FOR PROTIME INR: 2.0-3.0 for most medical and surgical thromboemboli c states. 2.5-3.5 for artificial heart valves and recurrent embolism. INR SHOULD BE USED ONLY FOR PATIENTS ON STABLE ANTICOAGULANT THERAPY. HEMATOLOGY D-Dimer 1.5 01/14 NA <sup>9</sup>I [facility] r nterpretive [facility] Data: In DIC, quantitative D-Dimer is generally [...] and I concur with the interpretation. 02/25/2017 [facility] Clinical Indication: Headache, fever, neck pain Comparison: [...] No mass, hemorrhage, or subacute stroke. SL: [id number] Spine cervical wo CT cervical spine without contrast 02/25/2017 [facility] contrast CT Clinical Indication: - neck pain [...] ABDOMEN AND PELVIS WITH CONTRA ST 01/24/2017 [facility] contrast CT Clinical Indication: Acute l eft [...] series DX RIGHT FOOT 3 VIEW 12/26/2016 [facility] HISTORY: Toe injury. No comparisons. FINDINGS: There [...] Comments Source Systolic (mm Hg) 111 02/26/2017 [facility] Diastolic (mm Hg) 64 02/26/2017 [facility] Respitory Rate 16 02/26/2017 [facility] Temperature Oral (F) 97.6 F 02/26/2017 [facility] Heart Rate 85 02/26/2017 [facility] Respitory Rate 16 02/26/2017 [facility] Systolic (mm Hg) 114 02/26/2017 [facility] Diastolic (mm Hg) 66 02/26/2017 [facility] Heart Rate 82 02/26/2017 [facility] Temperature Oral (F) 98.8 F 02/26/2017 [facility] Weight 49.545 02/26/2017 [facility] BMI Calculated 18.75 02/26/2017 [facility] Height 162.56 cm 02/26/2017 [facility] Systolic (mm Hg) 109 02/26/2017 [facility] Diastolic (mm Hg) 65 02/26/2017 [facility] 84 02/26/2017 [facility] Respitory Rate 14 02/26/2017 [facility] Respitory Rate 18 02/25/2017 [facility] Systolic (mm Hg) 114 02/25/2017 [facility] Diastolic (mm Hg) 63 02/25/2017 [facility] Temperature Oral (F) 98.2 F 02/25/2017 [facility] Heart Rate 78 02/25/2017 [facility] BMI Calculated 18.75 02/25/2017 [facility] Weight 49.545 02/25/2017 [facility] Height 162.56 cm 02/25/2017 [facility] Heart Rate 77 02/25/2017 [facility] Respitory Rate 18 02/25/2017 [facility] Temperature Oral (F) 97.8 F 02/25/2017 [facility] Hospital Systolic (mm Hg) 147 02/25/2017 [facility] Diastolic (mm Hg) 80 02/25/2017 [facility] Weight 49.659 02/25/2017 [facility] Height 167.64 cm 02/25/2017 [facility] Temperature Oral (F) 97.8 F 02/25/2017 [facility] BMI Calculated 17.67 02/25/2017 [facility] Systolic (mm Hg) 145 02/25/2017 [facility] Diastolic (mm Hg) 80 02/25/2017 [facility] Respitory Rate 18 02/25/2017 [facility] Heart Rate 77 02/25/2017 [facility] Temperature Oral (F) 98.5 F 01/26/2017 [facility] Heart Rate 87 01/26/2017 [facility] Respitory Rate 20 01/26/2017 [facility] Systolic (mm Hg) 116 01/26/2017 [facility] Diastolic (mm Hg) 69 01/26/2017 [facility] Heart Rate 79 01/26/2017 [facility] Respitory Rate 18 01/26/2017 [facility] Temperature Oral (F) 98.4 F 01/26/2017 [facility] Systolic (mm Hg) 129 01/26/2017 [facility] Diastolic (mm Hg) 80 01/26/2017 [facility] Temperature Oral (F) 98.1 F 01/26/2017 [facility] Heart Rate 78 01/26/2017 [facility] Systolic (mm Hg) 120 01/26/2017 [facility] Diastolic (mm Hg) 69 01/26/2017 [facility] Respitory Rate 20 01/26/2017 [facility] Height 157.48 cm 01/25/2017 [facility] Weight 51.449 01/25/2017 [facility] BMI Calculated 20.75 01/25/2017 [facility] Weight 52.273 01/25/2017 [facility] BMI Calculated 19.78 01/25/2017 [facility] Height 162.56 cm 01/25/2017 [facility] Systolic (mm Hg) 121 12/27/2016 [facility] Diastolic (mm Hg) 81 12/27/2016 [facility] Respitory Rate 16 12/27/2016 [facility] Heart Rate 82 12/27/2016 [facility] Temperature Oral (F) 98.3 F 12/27/2016 [facility] Temperature Oral (F) 98.4 F 12/27/2016 [facility] Respitory Rate 18 12/27/2016 [facility] Systolic (mm Hg) 126 12/27/2016 [facility] Diastolic (mm Hg) 81 12/27/2016 [facility] BMI Calculated 18.92 12/27/2016 [facility] Weight 50 12/27/2016 [facility] Heart Rate 89 12/27/2016 [facility] Height 162.56 cm 12/27/2016 [facility] Height 162.56 cm 02/06/2012 [facility] Weight 47.273 02/06/2012 [facility] Height 162.56 cm 11/29/2011 [place] Weight 50.000 11/29/2011 [place] Height 162.56 cm 10/25/2011 [place] Weight 54.545 10/25/2011 [place] Height 162.56 cm 05/23/2011 [place] Weight 50.000 05/23/2011 [place] Temperature Oral (F) 98.5 F 05/08/2011 [place] Diastolic (mm Hg) 57 05/08/2011 [facility] Systolic (mm Hg) 107 05/08/2011 [place] Heart Rate 57 05/08/2011 [place] Respitory Rate 16 05/08/2011 [facility] [place] Weight 50.000 05/08/2011 [facility] [place] Height 162.56 cm 05/08/2011 [place] Temperature Oral (F) 98.6 F 05/08/2011 [facility] [place] Diastolic (mm Hg) 70 05/08/2011 [facility] [place] [facility] Systolic (mm Hg) 127 05/08/2011 [facility] [place] Heart Rate 83 05/08/2011 [facility] [place] Respitory Rate 16 05/08/2011 [facility] [place] Respitory Rate 18 04/20/2011 [place] Heart Rate 79 04/20/2011 [facility] [place] Diastolic (mm Hg) 75 04/20/2011 [facility] [place] [facility] Systolic (mm Hg) 119 04/20/2011 [facility] [place] Diastolic (mm Hg) 97 04/20/2011 [facility] [place] [facility] Heart Rate 80 04/20/2011 [facility] [place] Systolic (mm Hg) 148 04/20/2011 [facility] [place] Respitory Rate 20 04/20/2011 [place] Weight 50.000 04/20/2011 [facility] [place] Systolic (mm Hg) 122 04/20/2011 [facility] [place] Temperature Oral (F) 98.0 F 04/20/2011 [place] Respitory Rate 18 04/20/2011 [place] Heart Rate 79 04/20/2011 [facility] [place] Diastolic (mm Hg) 75 04/20/2011 [facility] Temperature Oral (F) 98.0 F 03/26/2011 [place] Respitory Rate 18 03/26/2011 [place] Heart Rate 69 03/26/2011 [facility] [place] Systolic (mm Hg) 112 03/26/2011 [place] Diastolic (mm Hg) 60 03/26/2011 [facility] [place] Height 160.02 cm 03/26/2011 [facility] [place] Weight 53.636 03/26/2011 [place] Temperature Oral (F) 99.0 F 03/26/2011 [place] Diastolic (mm Hg) 67 03/26/2011 [facility] [place] Systolic (mm Hg) 115 03/26/2011 [facility] [place] Respitory Rate 16 03/26/2011 [place] Heart Rate 75 03/26/2011 [facility] [place] Diastolic (mm Hg) 51.0 02/11/2011 [facility] [place] Respitory Rate 14.0 02/11/2011 [facility] [place] Systolic (mm Hg) 100.0 02/11/2011 [facility] [place] Heart Rate 59.0 02/11/2011 [place] Temperature Oral (F) 98.1 F 02/11/2011 [facility] [place] Diastolic (mm Hg) 54.0 02/11/2011 [place] Systolic (mm Hg) 102.0 02/11/2011 [place] Temperature Oral (F) 97.5 F 02/11/2011 [place] Heart Rate 61.0 02/11/2011 [facility] [place] Respitory Rate 16.0 02/11/2011 [place] Height 162.56 cm 02/11/2011 [facility] [place] Weight 56.96 02/11/2011 [facility] [place] Respitory Rate 18.0 02/11/2011 [place] Temperature Oral (F) 98.0 F 02/11/2011 [place] Heart Rate 61.0 02/11/2011 [place] Systolic (mm Hg) 111.0 02/11/2011 [place] Diastolic (mm Hg) 61.0 02/11/2011 [place] Weight 52.273 02/11/2011 [place] Height 162.56 cm 02/11/2011 [place] Diastolic (mm Hg) 59.0 01/15/2011 [place] Systolic (mm Hg) 105.0 01/15/2011 [place] Temperature Oral (F) 97.0 F 01/15/2011 [place] Heart Rate 59.0 01/15/2011 [place] Respitory Rate 18.0 01/15/2011 [place] Temperature Oral (F) 97.2 F 01/15/2011 [place] Respitory Rate 18.0 01/15/2011 [place] Heart Rate 71.0 01/15/2011 [place] Diastolic (mm Hg) 59.0 01/15/2011 [place] Systolic (mm Hg) 106.0 01/15/2011 [place] Respitory Rate 18.0 01/15/2011 [place] Systolic (mm Hg) 110.0 01/15/2011 [place] Heart Rate 62.0 01/15/2011 [place] Temperature Oral (F) 97.9 F 01/15/2011 [place] Diastolic (mm Hg) 58.0 01/15/2011 [place] Height 162.56 cm 01/15/2011 [place] Weight 56.818 01/15/2011 [place] Height 162.56 cm 01/14/2011 [place] Weight 50.0 01/14/2011 [place] Systolic (mm Hg) 115.0 12/22/2010 [place] Diastolic (mm Hg) 78.0 12/22/2010 [place] Peripheral Pulse Rate 74.0 12/22/2010 [place] Respitory Rate 16.0 12/22/2010 [place] Height 162.56 cm 12/22/2010 [place] Weight 52.273 12/22/2010 [place] Temperature Oral (F) 98.2 F 12/22/2010 [place] Respitory Rate 16.0 12/22/2010 [place] Peripheral Pulse Rate 75.0 12/22/2010 [place] Diastolic (mm Hg) 77.0 12/22/2010 [place] Systolic (mm Hg) 125.0 12/22/2010 [place] En[place] Location Location Encounter Encounter Reason Attending ADM [place] Stat Source Details Type Number For Provider Date Date Visit Emergency [id number] ABD TRA PSYK 08/15 08/16 Acti ve [facility] 8 PAIN, /2009 [place] Emergency [id number] UPPER BE 09/20 09/21 [facility] [place] /2009 [place] Emergency [id number] EAR PAIN TRA PSYK 10/09 10/09 [facility] [place] OU [id number] CHEST TAJUDDIN 10/31 11/02 Active [place] 1 PAIN CONSUELO /2009 [place] Emergency [id number] ABDOMINA TROY 01/03 01/03 Active [place] 2 L PAIN ROW[place] /2009 [place] OU [id number] ABDOMINA CHRISTOPHER 01/05 01/07 Activ e [place] 4 L PAIN GONZALEZ /2009 [place] Emergency [id number] [place] TRA PSYK 07/21 07/21 Acti ve [place] 6 HIGH,VAG /2010 [place] BLEEDING Emergency [id number] FACIAL TROY 10/07 10/07 Active [place] 7 AND NECK ROW[place] /2010 [place] Inpatient [id number] FACIAL TARAH 10/09 10/13 Active [facility] 8 NECK BRIDGES /2010 [place] Emergency [id number] MOISE MONTEMAYOR 12/22 12/22 Disc harg [facility] ed [place] OU [id number] CHEST DEE CROCKETT 01/14 01/15 Active [facility] 0 PAIN /2010 [place] OU [id number] CHEST DEE CROCKETT 02/11 02/11 [facility], /2010 [place] S,HYPERG LYCEMIA, UTI Emergency [id number] LOWER LIZY 03/25 03/26 Active [facility] [place] 2 ABD WISEMAN /2010 [place] HIGH [place] Emergency [id number] RIGHT LIZY 04/19 04/20 Active [facility] 3 ABDOMINA WISEMAN /2011 [place] BLOOD IN URINE Emergency [id number] BLEEDING TROY 05/07 05/07 Active [facility] 4 / RT [place]OW[place] /2011 [place] PAIN Emergency [id number] ABDOMINA VIMI SHOEMAKER 05/22 05/23 Ac tive [facility] 5 L PAIN /2011 [place] BLOOD [place] Emergency [id number] LEFT VIMI SHOEMAKER 10/23 10/24 Acti ve [facility] 6 LOWER /2011 [place] L PAIN Emergency [id number] BLOOD VIMI SHOEMAKER 11/27 11/27 Acti ve [facility] 7 SUGAR /2011 [place] YEIMY [id number] [place] 02/05 02/05 Discharg [facility] 9 BAVISHI ed [facility] Outpatient [id number] ABDOMINA [place] 02/16 Active [facility] [id number] Moise Montemayor 12/27 12/27 [facility] [place] [facility] [id number] Greg 01/25 01/26 J[place] 1 Kayla /2016 [place] [facility] Emergency [id number] Rudolph 02/25 02/25 Jona [address] [facility] [id number] Rudolph 02/26 02/26 Jona [address] [facility] Outpatient [id number] ABD PAIN MESHA Activ e [facility] 3 [facility] Procedures Procedure Code Date Perfomer Comments Source Appendectomy [id number] [facility] Cholecystectomy [id number] [facility] Partial hysterectomy [id number] [facility] Assessment and Plan Assessment and Plan Date Source Extracted from:Title: Progress Note * 01/26/2017 [facility] Author: Marie June MD Date: 01/25/17 Impression and Plan The patient was seen and examined by me with the resident/TELEVISION NEWS REPORTER/PA and I agree with the History/Exam documented. [...]
--- OUTSIDE RECORDS SUMMARY | 2019-12-13 15:06 | XMS REPORT | Continuity of Care Document ---
:1965 Author Organization [facility] t Address [address] [place] [address] Care Team Providers Name Role Phone Sharpless [...] 2017-02-03 Mem[facility] 9-15 10:25:00 l HURT 00:00: [place] TOES 00 Active 12/27/2016 [facility] ABDOMINAL Diagnosis Active 2011-042012-02-17 [facility] PAIN 0-26 10:42:00 l 00:00: [place] ABDOMINAL 00 PAIN Active 02/07/2012 [facility], [facility] EGD Diagnosis Active 2011-042012-02-06 Mem oria 0-24 10:10:00 l EGD 06:00: [place] 00 Active 02/05/2012 [facility] BLOOD Diagnosis Active 2011-12-11 Mem oria SUGAR 8-16 11:15:00 l PROBLEM BLOOD 15:00: [place] SUGAR 00 PROBLEM Active 11/28/2011 [facility] LEFT LOWER Diagnosis Active 2011-12-11 [facility] ABDOMINAL 7-12 10:48:00 l PAIN LEFT 08:00: [place] LOWER 00 ABDOMINAL PAIN Active 10/24/2011 [facility] ABDOMINAL Diagnosis Active 2011-12-11 [facility] PAIN HIGH 2-08 11:09:00 l BLOOD 22:00: [place] SUGAR ABDOMINAL 00 PAIN HIGH BLOOD SUGAR Active 05/22/2011 [facility] BLEEDING/ Diagnosis Active 2011-12-11 [facility] RT SIDE 1-24 11:06:00 l PAIN 08:00: [place] BLEEDING/ 00 RT SIDE PAIN Active 05/07/2011 [facility] RIGHTABDOM Diagnosis Active 2011-04-19 [facility] INAL PAIN 1-06 20:37:00 l . AND 00:00: [place] BLOOD IN RIGHTABDOM 00 URINE INAL PAIN . AND BLOOD IN URINE Active 04/19/2011 [facility] RIGHT Diagnosis Active 2011-12-20 Mem oria ABDOMINAL 1-06 13:03:00 l PAIN, RIGHT 00:00: [place] BLOOD IN ABDOMINAL 00 URINE PAIN, BLOOD IN URINE Active 04/19/2011 [facility] LOWER ABD Diagnosis Active 2010-042011-12-11 [facility] PAIN/ HIGH 2-12 11:02:00 l SUGAR LOWER 00:00: [place] ABD PAIN/ 00 HIGH SUGAR Active 03/25/2011 [facility] CHEST PAIN Diagnosis Active 2010-042011-02-11 [facility] AND 0-30 01:56:00 l TIGHTNESS CHEST 18:00: Jorge Luis n PAIN AND 00 TIGHTNESS Active 02/10/2011 [facility] CHEST Diagnosis Active 2010-042011-02-15 Mem oria PAIN, 0-30 21:58:00 l DIZZINESS, CHEST 18:00: Eugenia nn HYPERGLYCE PAIN, 00 EB, UTI DIZZINESS, HYPERGLYCE EB, UTI Active 02/10/2011 [facility] CHEST PAIN Diagnosis Active 2010-042011-01-15 Memoria 0-03 16:36:00 l CHEST 15:00: [place] PAIN 00 Active 01/14/2011 [facility] RIGHT KNEE Diagnosis Active 2010-12-22 [facility] 1ST 3 TOES 9-10 13:04:00 l NUMB RIGHT 11:00: [place] KNEE 1ST 3 00 TOES NUMB Active 12/22/2010 [facility] FACIAL Diagnosis Active 2010-12-22 [facility] NECK 10-08 13:04:00 l CELLULITIS FACIAL 00:00: Herm ava NECK 00 CELLULITIS Active 10/08/2010 [facility] FACIAL AND Diagnosis Active 2010-12-22 [facility] NECK PAIN 10-07 13:04:00 l FACIAL 06:00: [place] AND NECK 00 PAIN Active 10/07/2010 [facility] SUGAR Diagnosis Active 2010-12-22 Mem [facility]ria HIGH,VAGIN 07-21 13:04:00 l AL SUGAR 00:00: [place] BLEEDING HIGH,VAGIN 00 AL BLEEDING Active 07/21/2010 [facility] ABD PAIN Diagnosis Active 2010-12-22 M emoria 01-05 13:04:00 l ABD PAIN 00:00: Jorge Luis n 00 Active 01/05/2010 [facility] EAR PAIN Diagnosis Active 2010-12-22 M emoria 10-09 13:04:00 l EAR PAIN 19:00: Jorge Luis n 00 Active 10/09/2009 [facility] UPPER Diagnosis Active 2010-12-22 Mem [facility] ABDOMINAL 09-20 13:04:00 l PAIN UPPER 14:00: [place] ABDOMINAL 00 PAIN Active 09/20/2009 [facility] ABD PAIN, Diagnosis Active 2010-12-22 [facility] HIGH SUGAR - 13:04:00 l ABD 00:00: [place] PAIN, HIGH 00 SUGAR Active 08/15/2009 [facility] Abdominal Problem Active 2012-02-19 Me moria pain 09:23:16 l [place] Abdominal pain Active Problem 02/19/2012 [facility], [place] Cellulitis Problem Active 2012-02-19 M emoria 09:23:16 l [place] Cellulitis Active Problem 02/19/2012 [facility], [place] Chest pain Problem Active 2012-02-19 M emoria 09:23:16 l Chest [place] pain Active Problem 02/19/2012 [facility], [place] Hyperglyce Problem Active 2012-02-19 M emoria eb 09:23:16 l [place] Hyperglyce eb Active Problem 02/19/2012 [facility], [place] UTI - Problem Active 2012-02-19 Memor ia Urinary 09:23:16 l tract UTI - [place] infection Urinary tract infection Active Problem 02/19/2012 [facility] [place] Diabetes Problem Active 2017-03-01 Mem oria mellitus 04:36:24 l (disorder) Diabetes He rmann mellitus (disorder) Active Problem 03/01/2017 [facility] Restless Problem Active 2017-03-01 Mem oria legs 04:36:24 l (disorder) Restless He rmann legs (disorder) Active Problem 03/01/2017 [facility] Abdominal Problem Active 2017-03-01 Me moria pain 04:36:24 l (finding) [place] Abdominal pain (finding) Active Problem 03/01/2017 [facility] Chest pain Problem Active 2017-03-01 M emoria (finding) 04:36:24 l Chest Jona pain (finding) Active Problem 03/01/2017 [facility] Hyperglyce Problem Active 2017-03-01 M emoria eb 04:36:24 l (disorder) Jorge Luis n Hyperglyce eb (disorder) Active Problem 03/01/2017 [facility] Urinary Problem Active 2017-03-01 Nirmal feliz tract 04:36:24 l infectious Urinary Her pugh disease tract (disorder) infectious disease (disorder) Active Problem 03/01/2017 [facility] CHEST PAIN Diagnosis Active 2010-12-22 [facility] NOS 13:04:00 l CHEST [place]ona PAIN NOS Active [facility] CELLULITIS Diagnosis Active 2010-12-22 [facility] NOS 13:04:00 l [place] CELLULITIS NOS Active [facility] Hyperglyce Problem 2016-2017-03-01 2017-03-01 Memoria eb, -14 04:36:24 04:36:24 l unspecifie 06:00: Jorge Luis n d Hyperglyce 00 eb, unspecifie d 02/25/2017 03/01/2017 [facility] Fever, Problem 2016-2017-03-01 2017-03-01 M emoria unspecifie - 04:36:24 04:36:24 l d Fever, 06:00: [place] unspecifie 00 d 02/25/2017 03/01/2017 [facility] Radiculopa Problem 2016-2017-02-28 2017-02-28 [facility] thy, 1-14 05:26:25 05:26:25 l cervical 06:00: Jnoa region Radiculopa 00 thy, cervical region 02/25/2017 02/28/2017 [facility] Displaced Problem 2017-2016-12-30 2016-12-30 Mem[facility] unspecifie 9-15 05:13:20 05:13:20 l d fracture 05:00: Jorge Luis n of right Displaced 00 lesser unspecifie toe(s), d fracture initial of right encounter lesser for closed toe(s), fracture initial encounter for closed fracture 12/30/2016 [facility] Allergies, Adverse Reactions, Alerts Allergy Allergy Status Severity Reaction(s) Onset Inactive Treating Comm ents Source Name Type Date Date Clinician Hectorph Propensi [facility] - adverse [facility]: [facility] reaction [facility] Ritalin Ritalin Active Emmanuelle Tenorio Social History Social Habit Start Date Stop Date Quantity Comments Source Sex Assigned At [facility] Social History 2017-02-03 2017-02-03 Ulises cleaning 15:24:44 15:24:44 Smoking Status Start Date Stop Date Source Never smoker [facility] Medications Ordered Filled Start Stop Current Ordering Indication Dosage Frequency Signature Comments Components Source Medication Medication Date Date Medication? Clinician (SIG) Name Name rOPINIRole 2018 Yes 1mg [id number] Take [address] [facility] (REQUIP) 1 3-26 [id number] by mouth 3 [facility] - MG tablet 11:54: 3D (three) Medic al 47 times Center daily. pregabalin Yes 50mg [id number] Take [address] [facility] (LYRICA) 50 3-26 [id number] by mouth 3 [facility] - MG capsule 11:54: 3D (three) Medi steven 47 times Center daily. GI cocktail 2016-04 No Notes: Nirmal feliz 1-15 G.I. l 05:06: Cocktail = Jona 00 antacid with simethicon e 22.5 mL - lidocaine viscous 7.5 mL Zofran 2016-04 No Notes: Memoria 1-15 (Same as: l 04:41: Zofran) [place] 00 MEDICATION WASTE Product Size: 4 mg Product Wasted: ___ mg Zofran 2016-04 No Notes: Memoria 1-15 (Same as: l 02:34: Zofran) [place] 00 MEDICATION WASTE Product Size: 4 mg [...] Weight 49.545 kg, Start date: 02/25/17 20:22:00 [employer] PAYABLE ANALYST, Stop date: 02/25/17 20:22:00 [employer] PAYABLE ANALYST ibuprofen 2016-04 Yes 800 mg = 1 [...] day, # 6 tab, 0 Refill(s), Pharmacy: [id number] Humalog 100 2016-04 Yes 4 unit, Mem oria units/mL 0-15 SUB-Q, l 14:48: TID-Before Meals, hold insulin injection if your blood sugar is less than 140 mg/dL., # 10 mL, 0 Refill(s), Pharmacy: [id number] pantoprazol 2016-04 Yes 40 mg = 1 M emoria e 40 MG 0-15 tab, PO, l Enteric 14:48: Daily, # Jorge Luis n Coated 00 30 tab, 0 Tablet Refill(s), [Protonix] Pharmacy: [facility] #[id number] Calcium 2016-04 Yes 500 mg = 1 Nirmal feliz Carbonate 0-15 tab, PO, l 500 MG 14:48: TID, # 6 [place] Chewable 00 tab, 0 Tablet Refill(s), Pharmacy: [id number] Insulin 2016-04 Yes 15 unit, Memori a Glargine 0-15 SUB-Q, l 100 UNT/ML 14:48: Daily, # Her pugh Injectable 00 10 mL, 0 Solution Refill(s), [Lantus] Pharmacy: [facility] #[id number] Calcium 2016-04 No Notes: Memoria Gluconate [...] Memoria 0-15 (Same as: l 02:00: Lyrica) [place] 00 Calcium 2016-04 No Notes: Memoria Carbonate 0-14 (Same As: l 22:40: Tums) [place] 00 Calcium Carbonate 500 mg = 200 mg elemental calcium Dose = mg calcium carbonate ( mg elemental calcium) Protonix 2016-04 No Notes: Memoria 0-14 Tablet l 22:00: should not Jona 00 be chewed or crushed. (Same as: Protonix) Magnesium 2016-04 No Notes: Memori a Oxide 0-14 (Same as: l 22:00: Mag-Ox [place] 00 400) Magnesium oxide 653wa=261z g elemental magnesium Dose=____m g magnesium oxide [...] Lispro 0-14 units) l 09:50: WASTE: F/P [place] 00 - Black; E - Municipal Trash [...] Duration: 30 day, Stop date: 02/24/17 0:34:00 [employer]S PAYABLE ANALYST Insulin 2016-04 No 60 Memoria Lispro 0-14 [...] Duration: 30 day, Stop date: 02/24/17 0:34:00 [employer]S PAYABLE ANALYST Acetaminoph 2016-04 No Notes: Do M emoria en 0-14 not exceed l 06:32: 4 gm/day. [place] 00 (Same as: Tylenol) Acetaminoph 2016-04 No Notes: Nirmal feliz en 325 MG / 0-14 (Same as: l Hydrocodone 06:32: [place] Eugenia nn Bitartrate 00 325/5) Do 5 MG Oral not exceed Tablet 4gm/day of acetaminop hen. Ondansetron 2016-04 No Notes: Nirmal feliz 0-14 (Same as: l 06:32: Zofran) [place] MEDICATION WASTE Product Size: 4 mg Product Wasted: ___ mg sodium 2016-04 No 1,000 mL, Memori a chloride 0-14 Rate: 75 l 0.9% 1000 06:32: ml/hr, Jorge Luis n ml INJ 00 Infuse 1,000 mL over: 13.3 hr, Route: IV, Dosing Weight 51.449 kg, Total Volume: 1,000, Start date: 01/25/17 1:32:00 CDT, Stop date: 02/24/17 1:31:00 ACC[employer]S PAYABLE ANALYST Saline 2016-04 No Notes: Memoria Flush 0.9% [...] Chloride 0-14 3000 l 0.9% 03:15: ml/hr, [place] (Bolus) IV 00 Infuse Over: 1 hr, Route: IV, 3,000, Drug form: INJ, ONCE, Priority: STAT, Dosing Weight 52.273 kg, Start date: 01/24/17 22:15:00 CDT, Duration: 1 doses or times, Stop date: 01/24/17 22:15:00 CDT Sodium 2017- No 500 mL, Memoria Chloride 0-14 500 ml/hr, l 0.9% 03:09: Infuse [place] (Bolus) IV 00 Over: 1 hr, Route: IV, 500, Drug form: INJ, ONCE, Priority: STAT, Dosing Weight 52.273 kg, Start date: 01/24/17 22:09:00 CDT, Duration: 1 doses or times, Stop date: 01/24/17 22:09:00 CDT Zofran 2016-04 No 4 mg, Memoria 0-14 Route: l 03:07: IVP, Drug [place] 00 form: INJ, ONCE, Dosing Weight 52.273, [...] / -15 (Same as: l Hydrocodone 04:47: [place] Eugenia nn Bitartrate 00 325/5) Do 5 MG Oral not exceed Tablet 4gm/day of [[place] acetaminop 5/325] hen. insulin Yes QD Inject [...] Duration: 30 day, Stop date: 12/28/11 21:50:00 [place] 5/325 Yes Juan 1-2 tab, M emoria oral tablet 7-13 Keith PO, Q4-6H, l 06:12: Yeaton PRN, 15 [place] 25 tab, Pain, Substituti on Allowed, Soft [...] Keith Rate: l 0.9% 03:06: Yeaton 1,000 [place] (Bolus) IV 00 ml/hr, 1,000 mL Infuse [...] 2-09 Roche 0.05 mL, l 05:36: Route: [place] 00 SUB-Q, Drug form: SOLN, ONCE, Priority: [...] Roche mL, Route: l 05:04: IVP, Drug [place] 00 form: INJ, ONCE, Priority: STAT, Start [...] tab, PO, l tablet 02:07: Q12H, 28 [place] 41 tab, Substituti on Allowed, TAB Pyridium 2011-0 No Sonal 200 mg, 2 Me moria 1-25 Raulito tab, l 02:03: Route: PO, Jona Drug form: TAB, ONCE, Priority: STAT, Start date: 05/07/11 20:03:00, Stop date: 05/07/11 20:03:00 Cipro 2011-0 No Sonal 500 mg, 2 Memor ia 1-25 Raulito tab, l 02:03: Route: PO, [place] Drug form: TAB, ONCE, Priority: STAT, Start [...] ing Nausea and Vomiting, Substituti on Allowed [place] Yes Juan 1 tab, PO, Memor ia [...] Keith Rate: l 0.9% 03:30: Yeaton 1,000 [place] (Bolus) IV 00 ml/hr, 1,000 mL Infuse [...] Mila 150 ml, Me moria citrate 2-13 Aroda Phelps PO, ONCE, l 8.85% oral 05:57: 300 ml, Herm ava liquid 30 Substituti on Allowed, Maintenanc e, LIQ MiraLax 2010-04 Yes Mila 17 gm, PO, M emoria oral powder 2-13 Aroda Phelps Daily, 255 l for 05:57: gm, [place] reconstitut 18 Substituti ion on Allowed, PDR/REC Phenergan 2010-04 Yes Mila 25 mg, 1 M emoria 25 mg oral 2-13 Aroda Phelps tab, PO, l tablet 05:57: Q6H, PRN, Jorge Luis n 09 15 tab, Nausea, Substituti on Allowed Vicodin 2010-04 Yes Mila 1 tab, PO, M emoria 5/500 oral 2-13 Aroda Phelps Q4-6H, l tablet 05:57: PRN, 24 [place] 05 tab, for Pain, Substituti on Allowed, [...] Phelps 100 mL, l 03:15: Route: IV, [place] 00 Drug form: SOLN, ONCE, Start date: 03/25/11 21:15:00, Stop date: 03/25/11 21:15:00 Saline 2010-04 No Mila 5 ml, Memoria Flush 0.9% 2-13 Aroda Phelps Route: l 02:19: IVP, Drug Form: [...] tablet, 0-31 Daily, l chewable 17:29: tab, [place] 44 Substituti on Allowed, CHEWTAB Cipro 2010-04 No Dk 250 mg, 1 Memori a 0-31 Ari tab, l 16:00: Jonathan Route: PO, Herm ava 00 Drug form: TAB, [id number], Start date: 02/11/11 11:00:00, Duration: 30 day, Stop date: 03/12/11 23:00:00 magnesium 2010-04 No [place] 400 mg, 1 M emoria oxide 0-31 Minhvu Victoriano tab, l 14:00: [place] Route: PO, [place] 00 Drug form: TAB, Daily, Start date: [...] Ari 0.7 mL, l 14:00: Jonathan Route: [place] 00 SUB-Q, Drug form: INJ, Daily, Start [...] PO, Herm ava 00 Drug form: TAB, [id number], Start date: 02/11/11 3:00:00, Duration: 30 day, [...] Shauna 150 mL, l 04:55: Route: IV, [place] 00 Drug form: INJ, ONCE, Start date: 02/10/11 23:55:00, Stop date: 02/10/11 23:55:00 Zofran 2010-04 No Penelope S 4 mg, 2 Memori a 0-31 Shauna mL, Route: l 04:28: IVP, Drug [place] 00 form: INJ, ONCE, Start date: 02/10/11 [...] 0-31 Shauna Rate: l 0.9% 03:55: 1,000 [place] (Bolus) IV 00 ml/hr, 1000 mL Infuse [...] Shauna Route: PO, l 02:47: Drug form: [place] 00 TAB, ONCE, Priority: STAT, Start date: [...] l enteric 14:00: Edwards Route: PO, Herm aav Drug form: ECTAB, Daily, Start date: 01/16/11 9:00:00, Duration: 30 day, Stop date: 02/14/11 9:00:00 Requip 2010-04 No [place] 1 mg, 1 Memori a 0-05 Minhvu Victoriano tab, l 02:00: [place] Route: PO, [place] 00 Drug form: TAB, Bedtime, Start date: [...] Q12H, l tablet 15:37: Edwards 30 tab, [place] 31 Substituti on Allowed, TAB aspirin 325 2010-04 Yes Giovani 9,750 mg, Memoria mg tablet, 0-04 Xiaoguang 30 tab, l enteric 15:37: Edwards PO, Daily, Herm ava coated 18 30 tab, Substituti on Allowed, ECTAB metoprolol 2010-04 No Giovani 12.5 mg, Me moria 0-04 Xiaoguang 0.5 tab, l 15:36: [place] Route: PO, [place] 00 Drug form: TAB, Q12H, Priority: NOW, Start date: 01/15/11 10:36:00, Duration: 30 day, Stop date: 02/14/11 9:00:00 Fioricet 2010-04 Yes Tajuddin 1 tab, PO, Memoria oral tablet 0-04 Qasimali Q4H, PRN, l 14:18: Medina 30 tab, [place] 21 Headache, Substituti on Allowed, Maintenanc e, [...] tablet 0-04 tab, PO, l 13:58: Bedtime, [place] 11 Substituti on Allowed ibuprofen 2010-04 No [place] 400 mg, 1 M emoria 400 mg oral 0-04 Minhvu Victoriano tab, l tablet 05:00: [place] Route: PO, Eugenia nn 00 Drug form: TAB, Q8H, Start date: 01/15/11 0:00:00, Duration: 30 day, Stop date: 02/13/11 16:00:00 Saline 2010-04 Beth Duncan 5 ml, Memoria Flush 0.9% 0-04 Minhvu Victoriano Route: l 02:00: [place] IVP, Drug [place] 00 Form: INJ, Q12H, Start date: 01/14/11 21:00:00, Duration: 30 day, Stop date: 02/13/11 9:00:00 Levemir 2010-04 Beth Duncan 70 unit, Nimral feliz FlexPen 0-04 Minhvu Victoriano 0.7 mL, l 02:00: [place] Route: [place] 00 SUB-Q, Drug form: INJ, Bedtime, Start date: 01/14/11 21:00:00, Duration: 30 day, Stop date: 02/12/11 21:00:00 Lantus 2010-04 Beth Duncan 70 unit, Memor ia 0-04 Minhvu Victroiano Route: l 02:00: [place] SUB-Q, [place] 00 Bedtime, Start date: 01/14/11 21:00:00, Duration: 30 day, Stop date: 02/12/11 21:00:00 glucagon 2010-04 Beth Duncan 1 mg, Memori a 0-04 Minhvu Victoriano Route: IM, l 00:22: [place] Drug form: [place] 00 PDR/INJ, PRN, PRN Blood Glucose Results, Start date: 01/14/11 19:22:00, Duration: 30 day, Stop date: 02/13/11 19:21:00 Insulin 2010-04 Beth Duncan 6 unit, Memor ia (Novolog) 0-04 Minhvu Victoriano 0.06 mL, l Sliding 00:22: [place] Route: [place] Scale - 00 SUB-Q, Very High Drug form: SOLN, Sliding Scale, PRN Blood Glucose Results, Start date: 01/14/11 19:22:00, Duration: 30 day, Stop date: 02/13/11 19:21:00 Dextrose 2010-04 Beth Duncan 25 gm, 50 Me moria 50% Syringe 0-04 Minhvu Victoriano ml, Route: l 00:22: [place] IM, Drug [place] 00 Form: INJ, PRN, PRN Blood Glucose Results, Start date: 01/14/11 19:22:00, Duration: 30 day, Stop date: 02/13/11 19:21:00 Saline 2010-04 No [place] 5 ml, Memoria Flush 0.9% 0-04 Minhvu Victoriano Route: l 00:21: [place] IVP, Drug [place] 00 Form: INJ, PRN, PRN Line Flush, [...] Victoriano tab, l 00:21: [place] Route: PO, [place] 00 Drug form: TAB, Q8H, PRN Nausea [...] Davis Route: PO, l 22:08: Drug Form: [place] 00 SUSP, ONCE, Routine, Start date: 01/14/11 [...] Diastolic (mm Hg) 2017-02-26 06:50:00 Mem orial [place] Respitory Rate 2017-02-26 06:50:00 Memori al Jona Temperature Oral (F) 2017-02-26 06:50:00 97.6 F [facility] [place] Heart Rate 2017-02-26 06:50:00 [facility] [place] Respitory Rate 2017-02-26 04:30:00 Memori al [place] Systolic (mm Hg) 2017-02-26 04:30:00 Nirmal rial [place] Diastolic (mm Hg) 2017-02-26 04:30:00 Mem orial [place]ona Heart Rate 2017-02-26 04:30:00 [facility] [place] Temperature Oral (F) 2017-02-26 00:55:00 98.8 F [facility] [place] Weight 2017-02-26 00:55:00 [facility] [place] BMI Calculated 2017-02-26 00:55:00 Memori al [place]ona Height 2017-02-26 00:55:00 162.56 cm [facility] [place] Systolic (mm Hg) 2017-02-26 00:55:00 Nirmal rial [place] Diastolic (mm Hg) 2017-02-26 00:55:00 Mem orial [place] Heart Rate 2017-02-26 00:55:00 [facility] [place] Respitory Rate 2017-02-26 00:55:00 Memori al [place] Respitory Rate 2017-02-25 07:35:00 Memori al [place] Systolic (mm Hg) 2017-02-25 07:35:00 Nirmal rial [place] Diastolic (mm Hg) 2017-02-25 07:35:00 Mem orial [place] Temperature Oral (F) 2017-02-25 07:35:00 98.2 F [facility] [place] Heart Rate 2017-02-25 07:35:00 [facility] [place] BMI Calculated 2017-02-25 05:05:00 Memori al [place] Weight 2017-02-25 05:05:00 [facility] [place] Height 2017-02-25 05:05:00 162.56 cm [facility] [place] Heart Rate 2017-02-25 05:05:00 [facility] [place] Respitory Rate 2017-02-25 05:05:00 Memori al [place] Temperature Oral (F) 2017-02-25 05:05:00 97.8 F [facility] [place] Systolic (mm Hg) 2017-02-25 05:05:00 Nirmal rial [place] Diastolic (mm Hg) 2017-02-25 05:05:00 Mem orial [place] Weight 2017-02-25 04:55:00 [facility] [place] Height 2017-02-25 04:55:00 167.64 cm [facility] [place] Temperature Oral (F) 2017-02-25 04:55:00 97.8 F [facility] [place] BMI Calculated 2017-02-25 04:55:00 Memori al [place] Systolic (mm Hg) 2017-02-25 04:55:00 Nirmal rial [place] Diastolic (mm Hg) 2017-02-25 04:55:00 Mem orial [place] Respitory Rate 2017-02-25 04:55:00 Memori al [place] Heart Rate 2017-02-25 04:55:00 [facility] [place] Temperature Oral (F) 2017-01-26 16:47:00 98.5 F [facility] [place] Heart Rate 2017-01-26 16:47:00 [facility] [place] Respitory Rate 2017-01-26 16:47:00 Memori al [place] Systolic (mm Hg) 2017-01-26 16:47:00 Nirmal rial [place] Diastolic (mm Hg) 2017-01-26 16:47:00 Mem orial [place] Heart Rate 2017-01-26 12:26:00 [facility] [place] Respitory Rate 2017-01-26 12:26:00 Memori al [place] Temperature Oral (F) 2017-01-26 12:26:00 98.4 F [facility] [place] Systolic (mm Hg) 2017-01-26 12:26:00 Nirmal rial Jona Diastolic (mm Hg) 2017-01-26 12:26:00 Mem orial [place] Temperature Oral (F) 2017-01-26 09:50:00 98.1 F [facility] [place] Heart Rate 2017-01-26 09:50:00 [facility] [place] Systolic (mm Hg) 2017-01-26 09:50:00 Nirmal rial [place] Diastolic (mm Hg) 2017-01-26 09:50:00 Mem orial [place] Respitory Rate 2017-01-26 09:50:00 Memori al [place] Height 2017-01-25 05:58:00 157.48 cm [facility] [place] Weight 2017-01-25 05:58:00 [facility] [place] BMI Calculated 2017-01-25 05:58:00 Memori al [place] Weight 2017-01-25 02:01:00 [facility] [place] BMI Calculated 2017-01-25 02:01:00 Memori al [place] Height 2017-01-25 02:01:00 162.56 cm [facility] [place] Systolic (mm Hg) 2016-12-27 06:03:00 Nirmal rial [place] Diastolic (mm Hg) 2016-12-27 06:03:00 Mem orial [place] Respitory Rate 2016-12-27 06:03:00 Memori al [place] Heart Rate 2016-12-27 06:03:00 [facility] [place] Temperature Oral (F) 2016-12-27 06:03:00 98.3 F [facility] [place] Temperature Oral (F) 2016-12-27 04:22:00 98.4 F [facility] [place] Respitory Rate 2016-12-27 04:22:00 Memori al [place] Systolic (mm Hg) 2016-12-27 04:22:00 Nirmal rial [place] Diastolic (mm Hg) 2016-12-27 04:22:00 Mem orial [place] BMI Calculated 2016-12-27 04:22:00 Memori al [place] Weight 2016-12-27 04:22:00 [facility] [place] Heart Rate 2016-12-27 04:22:00 [facility] [place] Height 2016-12-27 04:22:00 162.56 cm [facility] [place] Height 2012-02-06 15:19:00 162.56 cm [facility] [place] Weight 2012-02-06 15:19:00 [facility] [place] Height 2011-11-29 02:35:00 162.56 cm [facility] [place] Weight 2011-11-29 02:35:00 [facility] [place] Height 2011-10-25 02:45:00 162.56 cm [facility] [place] Weight 2011-10-25 02:45:00 [facility] [place] Height 2011-05-23 04:48:00 162.56 cm [facility] [place] Weight 2011-05-23 04:48:00 [facility] [place] Temperature Oral (F) 2011-05-08 02:38:00 98.5 F [facility] [place] Diastolic (mm Hg) 2011-05-08 02:38:00 Mem orial [place] Systolic (mm Hg) 2011-05-08 02:38:00 Nirmal rial [place] Heart Rate 2011-05-08 02:38:00 [facility] [place] Respitory Rate 2011-05-08 02:38:00 Memori al [place] Weight 2011-05-08 00:09:00 [facility] [place] Height 2011-05-08 00:09:00 162.56 cm [facility] [place] Temperature Oral (F) 2011-05-08 00:09:00 98.6 F [facility] [place] Diastolic (mm Hg) 2011-05-08 00:09:00 Mem orial [place] Systolic (mm Hg) 2011-05-08 00:09:00 Nirmal rial [place] Heart Rate 2011-05-08 00:09:00 [facility] [place] Respitory Rate 2011-05-08 00:09:00 Memori al [place] Respitory Rate 2011-04-20 07:05:00 Memori al [place] Heart Rate 2011-04-20 07:05:00 [facility] [place] Diastolic (mm Hg) 2011-04-20 07:05:00 Mem orial [place] Systolic (mm Hg) 2011-04-20 07:05:00 Nirmal rial [place] Diastolic (mm Hg) 2011-04-20 06:01:00 Mem orial [place] Heart Rate 2011-04-20 06:01:00 [facility] [place] Systolic (mm Hg) 2011-04-20 06:01:00 Nirmal rial [place] Respitory Rate 2011-04-20 06:01:00 [facility] al [place] Weight 2011-04-20 02:25:00 [facility] [place] Systolic (mm Hg) 2011-04-20 02:25:00 Nirmal rial [place] Temperature Oral (F) 2011-04-20 02:25:00 98.0 F [facility] [place] Respitory Rate 2011-04-20 02:25:00 [facility] al [place] Heart Rate 2011-04-20 02:25:00 [facility] [place] Diastolic (mm Hg) 2011-04-20 02:25:00 Mem orial [place] Temperature Oral (F) 2011-03-26 06:05:00 98.0 F [facility] [place] Respitory Rate 2011-03-26 06:05:00 [facility] [place] Heart Rate 2011-03-26 06:05:00 [facility] Systolic (mm Hg) 2011-03-26 06:05:00 [facility] Diastolic (mm Hg) 2011-03-26 06:05:00 [facility] Height 2011-03-26 01:58:00 160.02 cm [facility] Weight 2011-03-26 01:58:00 [facility] Temperature Oral (F) 2011-03-26 01:58:00 99.0 F [facility] Diastolic (mm Hg) 2011-03-26 01:58:00 [facility] Systolic (mm Hg) 2011-03-26 01:58:00 [facility] [place] Respitory Rate 2011-03-26 01:58:00 [facility] Heart Rate 2011-03-26 01:58:00 [facility] [place] Diastolic (mm Hg) 2011-02-11 15:37:00 [facility] [place] Respitory Rate 2011-02-11 15:37:00 [facility] [place] Systolic (mm Hg) 2011-02-11 15:37:00 [facility] Heart Rate 2011-02-11 15:37:00 [facility] Temperature Oral (F) 2011-02-11 15:37:00 98.1 F [facility] Diastolic (mm Hg) 2011-02-11 11:53:00 [facility] [place] Systolic (mm Hg) 2011-02-11 11:53:00 [facility] Temperature Oral (F) 2011-02-11 11:53:00 97.5 F [facility] Heart Rate 2011-02-11 11:53:00 [facility] Respitory Rate 2011-02-11 11:53:00 [facility] Height 2011-02-11 07:38:00 162.56 cm [facility] Weight 2011-02-11 07:38:00 [facility] Respitory Rate 2011-02-11 07:38:00 [facility] Temperature Oral (F) 2011-02-11 07:38:00 98.0 [facility] Heart Rate 2011-02-11 07:38:00 [facility] Systolic (mm Hg) 2011-02-11 07:38:00 [facility] [place] Diastolic (mm Hg) 2011-02-11 07:38:00 [facility] Weight 2011-02-11 02:32:00 [facility] [place] Height 2011-02-11 02:32:00 162.56 cm [facility] [place] Diastolic (mm Hg) 2011-01-15 16:44:00 [facility] Systolic (mm Hg) 2011-01-15 16:44:00 [facility] Temperature Oral (F) 2011-01-15 16:44:00 97.0 F [facility] [place] Heart Rate 2011-01-15 16:44:00 [facility] Respitory Rate 2011-01-15 16:44:00 [facility] Temperature Oral (F) 2011-01-15 12:18:00 97.2 F [facility] [place] Respitory Rate 2011-01-15 12:18:00 [facility] [place] Heart Rate 2011-01-15 12:18:00 [facility] [place] Diastolic (mm Hg) 2011-01-15 12:18:00 [facility] [place] Systolic (mm Hg) 2011-01-15 12:18:00 [facility] [place] Respitory Rate 2011-01-15 09:30:00 [facility] [place] Systolic (mm Hg) 2011-01-15 09:30:00 [facility] [place] Heart Rate 2011-01-15 09:30:00 [facility] [place] Temperature Oral (F) 2011-01-15 09:30:00 97.9 F [facility] Diastolic (mm Hg) 2011-01-15 09:30:00 [facility] [place] Height 2011-01-15 01:35:00 162.56 cm [facility] [place] Weight 2011-01-15 01:35:00 [facility] Height 2011-01-14 20:07:00 162.56 cm [facility] [place] Weight 2011-01-14 20:07:00 [facility] Systolic (mm Hg) 2010-12-22 18:51:00 [facility] [place] Diastolic (mm Hg) 2010-12-22 18:51:00 [facility] [place] Peripheral Pulse Rate 2010-12-22 18:51:00 [facility] Respitory Rate 2010-12-22 18:51:00 [facility] [place] Height 2010-12-22 16:57:00 162.56 cm [facility] Weight 2010-12-22 16:57:00 [facility] [place] Temperature Oral (F) 2010-12-22 16:57:00 98.2 F [facility] [place] Respitory Rate 2010-12-22 16:57:00 [facility] [place] Peripheral Pulse Rate 2010-12-22 16:57:00 [facility] [place] Diastolic (mm Hg) 2010-12-22 16:57:00 [facility] [place] Systolic (mm Hg) 2010-12-22 16:57:00 [facility] [place] Procedures Procedure Date / Time Performed Performing Clinician Maegan ross Appendectomy [facility] [place] Cholecystectomy [facility] Partial [facility] Encounters Start End Encounter Admission Attending Care Care Encounter Source Date/Time Date/Time Type Type Clinicians Facility Department ID 2018-11-26 2018-11-26 Emergency Antionetteanne [facility] [id number] 11:32:46 15:11:00 Edgard Medley [id number] [place] 4.2.7.2.686 [place] [id number] 2018-11-26 2018-11-26 Orders Doctor RASHID [id number] 00:00:00 00:00:00 Only Unassigned, [place] 350.1.13.10 [facility] [id number] [id number] 2017-02-25 2017-02-26 Outpatient Pilar, 2.16.840. 2.16.840.1. 4 [id number] 18:38:00 00:55:00 Rudolph [id number]. [id number] 03 Mate[place] 3.615.120 5.120 2017-02-24 2017-02-25 Outpatient Quezada, 2.16.840. 2.16.840.1. 4 [id number] 22:49:00 01:35:00 Rudolph [id number]. [id number] 02 Mate[place] 3.615.120 5.120 2017-01-24 2017-01-26 Outpatient Kayla, 2.16.840. 2.16.840.1 . [id number] 20:53:00 14:35:00 Greg Mack [id number]. [id number] 01 3.615.120 5.120 2016-12-26 2016-12-27 Outpatient Ryan, 2.16.840. 2.16.840.1. 4 [id number] 23:03:00 01:05:00 Moise Rojas [id number]. [id number] 00 3.615.120 5.120 Results Test Description Test Time Test Comments Results Result Comments Source POCT-GLUCOSE METER 2017-10-07 11:53:00 Test Item Value Reference Range Interpretation Comme nts POC-GLUCOSE METER (Momail) (test 277 mg/dL 70-110 H TESTED AT [address] POINT code = 1538) PKY [facility] [address] POCT-GLUCOSE [id number] 11:53:00 Test Item Value Reference Range Interpretation Comments POC-GLUCOSE METER 411 mg/dL 70-110 HH TESTED AT [address] ([facility]) (test code POINT PK [facility] = 1538) [address] RAD, SPINE, CERVICAL, 2 OR 3 [id number] 23:46:00Reason for exam:->neck painFINAL REPORT RAD, SPINE, [...] MDRchulaort Verified Date/Time: 10/06/2017 23:46:30 Reading Location: [address] Transitional Reading Room CT, SPINE, CERVICAL, [...] Graysonort Verified Date/Time: 10/06/2017 23:44:40 Reading Location: [address] Transitional Reading Room CT, BRAIN, WITHOUT [...] MRI for further evaluation. Signed: Carla Oden [facility] Verified Date/Time: 10/06/2017 23:24:44 Reading Location: [address] Reading Room TROPONIN I 2017-10-06 22:56:00 [...] acute neurological disease, and persistent tachyarrhythmia.COMPREHENSIVE METABOLIC [id number] 22:50:00 Test Item Value Reference Range Interpretation [...] S NOT APPLICABLE FOR DIALYSIS PATIEN TS. [id number] 22:42:00 Test Item Value Reference Range Interpretation Comments AMYLASE (BEAKER) (test code = 349) 58 U/L 30-110 CBC W/PLT COUNT & AUTO [id number] 22:22:00 Test Item Value Reference Range Interpretation [...] 0.00-0.20 (test code = 417) URINALYSIS W/ [id number] 22:09:00 Test Item Value Reference Range Interpretation [...] 1663) SOURCE(BEAKER) (test code = 2795) POCT-GLUCOSE [id number] 07:19:00 Test Item Value Reference Range Interpretation Comments POC-GLUCOSE METER 241 mg/dL 70-110 H TESTED AT [address] (BEAKER) (test code POINT PK [facility] [place] = 1538) [address] CT, [id number] 19:16:00FINAL REPORT CT OF THE ABDOMEN AND [...] MDReport Verified Date/Time: 09/22/2017 19:16:29 Reading Location: [facility] C013W Consult Reading Room BASI METABOLIC [id number] 17:37:00 Test Item Value Reference Range Interpretation [...] NOT APPLICABLE FOR DIALYSIS PATIEN TS. TROPONIN [id number] 17:07:00 Test Item Value Reference Range Interpretation [...] (test code = 749) 26 U/L 6-51 [id number] 16:51:00 Test Item Value Reference Range Interpretation Comments AMYLASE (BEAKER) (test 32 U/L 30-110 Speci men markedly code = 349) hemolyzed URINALYSIS W/ [id number] 16:21:00 Test Item Value Reference Range Interpretation [...] = 2795) CBC W/PLT COUNT & AUTO [id number] 16:15:00 Test Item Value Reference Range Interpretation [...] L 0.00-0.20 (test code = 417) POCT-GLUCOSE [id number] 15:36:00 Test Item Value Reference Range Interpretation Comments POC-GLUCOSE METER 284 mg/dL 70-110 H TESTED AT [address] ([facility]) (test code POINT PK [facility] [place] = 1538) [address] CT, [id number] 15:32:00Reason for exam:->LLQ ABD PAINIs the patient [...] MDReport Verified Date/Time: 07/07/2017 15:32:20 Reading Location: [facility] B1 C013Y CT Body Reading Room LIPASE 2017-07-07 14:41:00 Test Item Value Reference Range Interpretation Comments LIPASE (BEAKER) (test code = 749) 32 U/L 6-51 COMPREHENSIVE METABOLIC [id number] 14:40:00 Test Item Value Reference Range Interpretation [...] NOT APPLICABLE FOR DIALYSIS PATIEN TS. POCT-GLUCOSE [id number] 14:10:00 Test Item Value Reference Range Interpretation Comments POC-GLUCOSE METER 352 mg/dL 70-110 H TESTED AT [address] ([facility]) (test code POINT [facility] [place] = 1538) [address] CBC W/PLT COUNT & AUTO [id number] 13:30:00 Test Item Value Reference Range Interpretation [...] 0.00-0.20 (test code = 417) URINALYSIS W/ [id number] 13:01:00 Test Item Value Reference Range Interpretation [...] 1663) SOURCE(BEAKER) (test code = 2795) KETONE, [id number] 12:58:00 Test Item Value Reference Range Interpretation Comments KETONES, BLOOD (BEAKER) (test code 0.1 mmol/L <0.4 = 1103) BLOOD GAS, [id number] 12:48:00 Test Item Value Reference Range Interpretation [...] (test code = 1819) 37.0 % POCT-GLUCOSE [id number] 12:04:00 Test Item Value Reference Range Interpretation Comments POC-GLUCOSE METER > mg/dL 70-110 HH OUTSIDE ME ASURING (BEAKER) (test code [facility] AT [facility] = 1538) [facility] [address] BACTERIAL - [id number] 03:02:00Negative (02/25/17 9:02 PM)[facility] [id number] 03:02:00 Test Item Value Reference Range Interpretation Comments Tube Num CSF (test code = Tube Num CSF) 1 1 [facility] [id number] 03:02:00Clear (02/25/17 9:02 PM)[facility] [id number] 03:02:00Colorless (02/25/17 9:02 PM)[facility] ZUEHJI1627-59-74 03:02:00Colorless (02/25/17 9:02 PM)[facility] JSSFRH7466-19-00 03:02:002[facility] HWEDOG3870-36-86 03:02:001[facility] PHIYPR6168-06-37 03:02:001[facility] HNGSQD4957-87-79 03:02:002[facility] EXSWHV3423-10-45 03:02:00 Colorless (02/25/17 9:02 PM)[facility] JOIRAL6920-15-05 03:02:00Clear (02/25/17 9:02 PM)[facility] RFMNWT8601-20-33 03:02:00 Test Item Value Reference Range Interpretation Comments Tube Num CSF (test code = Tube Num CSF) 4 1 [facility] TXZBNB3367-79-32 03:02:00Colorless (02/25/17 9:02 PM) [facility] DBOYSX7481-52-80 03:02:34685Wbpuetur HermannBODY FLUIDS 2017-02-26 03:02:0055[facility] HermannFUNGAL - AIKLENTP0607-47-93 03:02:00 Negative (02/25/17 9:02 PM)[facility] MppvxtwLFLORGGDGT8980-77-36 03:02:00Non Reactive (02/25/17 9:02 PM)[facility] HermannMOLECULAR NRYFISVSPI4555-24-47 03:02:00Negative 2(02/25/17 9:02 PM)[facility] HermannMOLECULAR DIAGNOSTIC 2017-02-26 03:02:00Negative 1(02/25/17 9:02 PM)[facility]annVIRAL - SEROLOGY 2017-02-26 03:02:00Negative (02/25/17 9:02 PM)[facility] HermannCHEM PANEL 2017-02-26 01:42:000.9[facility]annCHEM GHVXH2070-49-83 01:42:0023[facility]annCHEM XSHRF8735-25-01 01:42:004.3[facility]annCHEM QWBTN1404-89-41 01:42:0011.3[facility]annCHEM ITREO4081-23-74 01:42:64281Tgyjuqjf HermannCHEM ROHBJ8932-72-20 01:42:000.3[facility]annCHEM SSNEL4945-87-26 01:42:0016 [facility]annCHEM DEWQQ7554-89-82 01:42:0017[facility] HermannCHEM PANEL 2017-02-26 01:42:008.2[facility]annCHEM OZYVM8936-15-86 01:42:004.3[facility]annCHEM SGTFA8467-24-38 01:42:89578Tpyyetct HermannCHEM HICTP6638-96-53 01:42:000.70[facility]annCHEM KJOWL8684-37-41 01:42:09972Rzoqypyy HermannCHEM BUXZB7500-57-40 01:42:008.9[facility]annCHEM TSYBH1281-25-45 01:42:0097 [facility]annCHEM JBDXQ8528-38-48 01:42:0026[facility] HermannCHEM PANEL 2017-02-26 01:42:66543Pjwugoom HermannCHEM NSQBQ7938-23-40 01:42:0016[facility] HermannCHEM IXMYM2400-53-80 01:42:003.9[facility]annCHEM RFDSD1045-88-53 01:42:001.8[facility] HfrjgtwAUNVEXMSNO7914-04-60 01:42:73192Mfcpbhhi [place] LMUSYIKCQH1573-39-05 01:42:0082.2[facility] OclqwydKWONCVJGNK7109-59-89 01:42:00 37.1Mem[facility] QwrhkszBIRLAVTVNW4909-09-05 01:42:007.4[facility] HermannHEMATOLOGY 2017-02-26 01:42:0014.1[facility] OshyzskZUNGCLNXNY9202-22-16 01:42:00 Test Item Value Reference Range Interpretation Comments MCH (test code = MCH) 27.6 pg 27.0-31.0 [facility] VdcluzyVYAOIGZVQC1360-59-86 01:42:0033.6[facility] HermannHEMATOLOGY 2017-02-26 01:42:004.52[facility] FvfzlijBXTOTSWLHR7212-02-88 01:42:0012.5[facility] AdsbjewZXJKECTRHB3596-29-73 01:42:007.1[facility] AbjnmdjAEZKZTDNBF9443-21-18 01:42:000.8[facility] SnvlkvoUKQFZRNAMZ1945-23-47 01:42:002.8[facility] [place] BQLBDSITHZ1512-79-11 01:42:003.8[facility] YashcflVFLJMAMFUA2419-04-21 01:42:000.4 Memorial WfhgzfqCGVAQMEBLF6821-97-63 01:42:0053.4[facility] HermannHEMATOLOGY 2017-02-26 01:42:0039.1[facility] AkmumpcISMKWWBRNL2706-03-91 01:42:001.4[facility] IhgxcvhNECYPNGONP8558-84-20 01:42:005.3[facility] MtiqiroQUJDVRPLVL1182-76-96 01:42:000.1[facility] YdmzddoCEZNOLRIXD8151-81-97 01:42:000.1[facility] HermannURINE AND IUOKP4438-57-34 01:42:000.2[facility]annUR[facility] AND OLKLR0059-98-41 01:42:00Negative (02/25/17 7:42 PM)[facility] AND WQVUY4418-54-15 01:42:00Negative *NA*(02/25/17 7:42 PM)[facility] AND VQWLO0200-51-52 01:42:00Negative *NA*(02/25/17 7:42 PM)[facility] AND ZLZFY3924-42-45 01:42:00Negative (02/25/17 7:42 PM)[facility] AND IWEGT1390-26-98 01:42:00Negative (02/25/17 7:42 PM)[facility] AND PCGDE8690-99-41 01:42:00Negative (02/25/17 7:42 PM)[facility] AND EBLXJ3223-88-90 01:42:00 Test Item Value Reference Range Interpretation Comments UA pH (test code = UA pH) 6.0 1 5.0-8.0 [facility] AND DKRQD0111-30-04 01:42:00 Test Item Value Reference Range Interpretation Comments UA Spec Grav (test code = UA Spec 1.010 1 Grav) [facility] NSFOR9989-77-47 01:42:00Yellow *NA*(02/25/17 7:42 PM) [facility] AND AWUUQ8840-48-63 01:42:00Slight Cloudy (02/25/17 7:42 PM)[facility] HermannVIRAL - HUXVSWFG2280-36-08 01:42:00Negative (02/25/17 7:42 PM)[facility] HermannVIRAL - TCSXCKWK1608-30-01 01:42:00Negative (02/25/17 7:42 PM)[facility] HermannCHEM EGGEA9632-92-18 09:02:46301Luujffrl HermannCHEM PANEL 2017-01-26 09:02:000.2[facility] HermannCHEM UQDRI8541-77-76 09:02:96623Iwdpwsie HermannCHEM KOZCA6371-42-65 09:02:0012[facility] HermannCHEM EFRMM3687-34-44 09:02:003.3[facility] HermannCHEM VUUWY5908-54-86 09:02:002.4[facility] HermannCHEM CSPLW1501-86-56 09:02:005.7[facility] HermannCHEM WYZCD4079-78-43 09:02:009.7 [facility]annCHEM RXLFT3687-48-04 09:02:32393Iaycauxd HermannCHEM PANEL 2017-01-26 09:02:007.4[facility] HermannCHEM TGXZY1313-02-52 09:02:000.7[facility] HermannCHEM ZDPCY7403-88-63 09:02:000.40[facility] HermannCHEM KCSHV6759-33-62 09:02:005[facility] HermannCHEM LYCCW0678-48-39 09:02:0037[facility] HermannCHEM PPPUU2055-33-51 09:02:0044[facility] HermannCHEM DYTTX7086-87-66 09:02:003.7 [facility]annCHEM QASFK5622-82-32 09:02:95828Uqxarsdd HermannCHEM PANEL 2017-01-26 09:02:0025[facility] HermannCHEM PCQVT6946-21-72 09:02:95512Xobmdjae HermannCARDIAC XFQJIFS6216-34-95 22:26:00<0.02[facility] HermannPARATHYROID QWXOGBN4744-75-10 22:26:000.99[facility] HermannPARATHYROID WKVXVVN5307-40-38 22:26:001.01[facility] HermannCHEM ZBZYM2894-62-06 20:00:002.6[facility] HermannCHEM EHPDI2465-31-14 20:00:73337Whvlaulv HermannCHEM KNLCX7143-97-38 20:00:000.50 [facility]annCHEM GHFLU9249-29-04 20:00:46566Pzlzyehu HermannCHEM PANEL 2017-01-25 20:00:003.6[facility] HermannCHEM XMHFM6967-29-89 20:00:0025[facility] HermannCHEM TNMBC1116-30-07 20:00:96507Qgjmbwmf HermannCHEM WGIXQ0410-64-35 20:00:008.6[facility] HermannCHEM HFOJZ0205-26-59 20:00:006.9[facility] HermannCHEM CVXDZ0155-77-77 20:00:35890Rokrdpil HermannCHEM NTBHY1463-00-09 20:00:008 [facility]annCHEM QJHWN8979-97-84 08:54:002.7[facility] HermannCHEM PANEL 2017-01-25 08:54:32198Nduukjjn HermannCHEM CPVUQ7163-31-38 08:54:000.60[facility] HermannCHEM TQJUU6745-90-46 08:54:009[facility] HermannCHEM EOJVC7780-54-31 08:54:02839Gebnzsnl HermannCHEM GKGVG6725-34-42 08:54:0012.5[facility] HermannCHEM FBUJJ2282-43-90 08:54:003.5[facility] HermannCHEM KFRAO8873-98-49 08:54:20823 [facility]annCHEM DBOBX1444-65-35 08:54:0023[facility] HermannCHEM PANEL 2017-01-25 08:54:007.1[facility] HermannCHEM BJBTQ0922-02-05 08:54:04421Fsbmgdjm HermannCHEM UKNSL9967-66-15 08:54:001.7[facility] IbegyqlHCAXPXQBVQ1835-05-21 08:54:007.4[facility] JgmbvjaFJRQVNWUFJ8127-49-46 08:54:0013.6[facility] [place] NUAWEIPXXL2689-33-36 08:54:49759Doadkfwm MpholbsDTWEWLBZWG3358-94-31 08:54:00 33.4[facility] EpmnhsgHAJTVDAERK4483-59-07 08:54:0082.5[facility] HermannHEMATOLOGY 2017-01-25 08:54:00 Test Item Value Reference Range Interpretation Comments MCH (test code = MCH) 27.6 pg 27.0-31.0 [facility] NztjfmhNGDGJYHWMB1672-58-73 08:54:0010.7[facility] HermannHEMATOLOGY 2017-01-25 08:54:0032.0[facility] VnsmmwpXKRQKSWDEM6318-03-39 08:54:005.5[facility] NqyymtoWWVZFNCHWZ7633-17-94 08:54:003.88[facility] RitczduWAASTJWFRE6103-12-16 08:54:007.2[facility] ZseczdhKZXUYZUBDZ6425-11-76 08:54:000.4[facility] DDXXLRJJGZ8853-34-55 08:54:003.0[facility] OusjqqhPCUBBJWETW2325-26-06 08:54:002.0 [facility] LfvanxwFSISFMLPVF2934-74-66 08:54:000.9[facility] HermannHEMATOLOGY 2017-01-25 08:54:000.6[facility] EoxjddaOTXJZPRCVJ8521-91-11 08:54:0036.3[facility] WksojrwMJVJHCHEXK5957-86-53 08:54:0055.0[facility]annURINE AND STOOL 2017-01-25 04:54:00Negative (01/24/17 11:54 PM)[facility] AND STOOL 2017-01-25 04:54:00Positive *ABN*(01/24/17 11:54 PM)[facility] AND QRTDB1750-69-28 04:54:00Negative (01/24/17 11:54 PM)[facility] AND NZECE4136-31-24 04:54:00Negative *NA*(01/24/17 11:54 PM)[facility] CSTEX1236-54-04 04:54:00Negative (01/24/17 11:54 PM)[facility] AND GEBKF6526-43-09 04:54:000.2[facility] AND OOSUN3538-85-77 04:54:00Negative *NA*(01/24/17 11:54 PM)[facility] STOOL 2017-01-25 04:54:00 Test Item Value Reference Range Interpretation Comments UA pH (test code = UA pH) 5.5 1 5.0-8.0 [facility] WARTU9252-11-58 04:54:00<=1.005 *NA*(01/24/17 11:54 PM)[facility] AND KLJEW6054-33-85 04:54:00Yellow *NA*(01/24/17 11:54 PM)[facility] HVDVM0414-74-33 04:54:00Clear (01/24/17 11:54 PM) [facility]annCARDIAC MQNMTJO0654-41-39 02:44:0062[facility] HermannCARDIAC DCAGXKQ1645-04-12 02:44:00<1.0[facility] HermannCARDIAC WUGNUYU3253-81-35 02:44:00<0.02[facility] HermannCARDIAC URESVYM9913-08-97 02:44:00<1.6 [facility]annCHEM HAUWD9510-14-98 02:44:0014[facility] HermannCHEM PANEL 2017-01-25 02:44:000.5[facility] HermannCHEM BAEXU1425-44-62 02:44:0037[facility] HermannCHEM PCBBA0812-43-23 02:44:30951Qezqnkwk HermannCHEM VGMYE7349-58-24 02:44:000.7[facility] HermannCHEM GBYIS7185-87-40 02:44:004.7[facility] HermannCHEM LOEXX7219-39-63 02:44:003.5[facility] HermannCHEM TAYGQ6979-24-43 02:44:0016 [facility]annCHEM FWZTI9888-53-61 02:44:008.2[facility] HermannCHEM PANEL 2017-01-25 02:44:07423Iafinohn OrsloxbQCPTULYJKX5200-53-69 02:44:0013.7[facility] IffzweiAYBHALTKKX2949-51-86 02:44:0041.6[facility] NshncrhIJQNTWVFFP1417-90-70 02:44:0083.6[facility] RvlldyaKUQHZEXLLV5193-51-16 02:44:00 Test Item Value Reference Range Interpretation Comments MCH (test code = MCH) 27.5 pg 27.0-31.0 [facility] ZfcgulxKFCHXHDOQT2901-08-45 02:44:0032.9[facility] HermannHEMATOLOGY 2017-01-25 02:44:0013.6[facility] XehktduHRFUZEXXFZ7701-05-30 02:44:71294Grrkwgps GznofylIQQKHMKGZT0396-79-09 02:44:008.1[facility] XhfmuxjIYAKBSAFBN8027-49-97 02:44:005.8[facility] WeilfhkJEUQHABDSU3870-36-04 02:44:004.97[facility] [place] VPGGYIUJSV1197-22-25 02:44:000.4[facility] PjjiyepKOIZEGFKTK3816-20-95 02:44:000.7 [facility] GqcybpnFINHIDUUOC3966-80-77 02:44:003.5[facility] HermannHEMATOLOGY 2017-01-25 02:44:007.1[facility] WpyedxeVCSSGZKHYA1639-26-23 02:44:000.6[facility] SgedsmgMBJSVKUGPT8510-41-82 02:44:001.8[facility] PiutfquNKLRTCJOBX4137-76-47 02:44:0059.9[facility] MqxzjmxLTFUMWKUHL7269-46-09 02:44:0031.7[facility] [place] URINE IXPUQQA7592-01-44 09:22:00 Test Item Value Reference Range Interpretation [...] S Sulfamethoxazole (test code = 47) POCT-GLUCOSE [id number] 23:15:00 Test Item Value Reference Range Interpretation Comments POC-GLUCOSE METER 227 mg/dL 70-110 H TESTED AT [facility] [address] (BEAKER) (test code POINT [address] [facility] [place] = 4434) [address] URINALYSIS W/ [id number] 22:36:00 Test Item Value Reference Range Interpretation [...] 1663) SOURCE(BEAKER) (test code = 2795) KETONE, [id number] 22:32:00 Test Item Value Reference Range Interpretation Comments KETONES, BLOOD (BEAKER) (test code 0.6 mmol/L <0.4 H = 1103) BLOOD GAS, [id number] 22:30:00 Test Item Value Reference Range Interpretation [...] (test code = 1819) 21.0 % SCREEN, [id number] 22:29:00 Test Item Value Reference Range Interpretation Comments TEST URINE (BEAKER) (test Negative code = 583) TROPONIN [id number] 21:42:00 Test Item Value Reference Range Interpretation [...] CK-MB Reference Range:<5 Normal5-10 Borderline>10 AbnormalCOMPREHENSIVE METABOLIC GIGLU0930-04-12 21:34:00 Test Item Value Reference Range Interpretation [...] S NOT APPLICABLE FOR DIALYSIS PATIEN TS. [id number] 21:32:00 Test Item Value Reference Range Interpretation Comments LIPASE (BEAKER) (test code = 749) 28 U/L 6-51 CBC W/PLT COUNT & AUTO [id number] 20:55:00 Test Item Value Reference Range Interpretation [...] L 0.00-0.20 (test code = 417) POCT-GLUCOSE [id number] 20:56:00 Test Item Value Reference Range Interpretation Comments POC-GLUCOSE METER 446 mg/dL 70-110 Notified R Diana DALTON/TESTED AT (BEAKER) (test code SLSL [address] [place] [address] = [address] [facility] [address] BEDSIDE GLUCOSE NRBKLXF5726-04-98 15:13:21850Vddkryej HermannBEDSIDE GLUCOSE BZFEEBW4891-76-65 04:18:04619Uffythxr ErzownzAOIHVLLDQ1368-61-32 03:05:000.14 [facility] SdvtkbuZKGWTGZYN3390-50-65 03:05:008[facility] VxoiabvYFZKOROAN3339-03-44 03:05:000.2[facility] AwlpjxuFGQQEDBOJ7096-18-91 03:05:0027[facility] Jona EBWMLTDCG7834-54-89 03:05:0013.2[facility] RirvkcqUOVUQKNGB7312-95-51 03:05:008.8 [facility] AgrkzulLPGFLDJLR5436-81-21 03:05:007.6[facility] HermannCHEMISTRY 2011-11-29 03:05:0016[facility] RogeijzEJENJVARW8049-43-86 03:05:003.8[facility] FbyhmqoEFHJVFZXX3960-92-98 03:05:003.8[facility] DahwgtgBQEMMBJMJ8850-61-71 03:05:001.0[facility] NymrtdfMRELEDIWC5570-11-85 03:05:80111Plgqhumx [place] KBZMFTKPK6453-64-55 03:05:0013[facility] JqtnnqvIOSIGJEQT8126-58-80 03:05:55982 [facility] VrxnmktNTLEGWKID5792-47-64 03:05:0098[facility] HermannCHEMISTRY 2011-11-29 03:05:000.7[facility] XemiinhJFJDLCQMW6095-19-59 03:05:0011[facility] LhhtyufCOOIDOCKI6908-15-16 03:05:004.2[facility] HwqazrhIDWHXPIMZ0169-22-50 03:05:01596Kujefnra JigshigRBXKOZXARF7109-96-78 03:05:004.41[facility] [place] ODNLUQVAJR7252-94-73 03:05:005.7[facility] UmbokiyCMBBQYSRRW2657-93-28 03:05:00 33.2[facility] UkopeetZHBYJKALIF6934-66-73 03:05:0012.9[facility] HermannHEMATOLOGY 2011-11-29 03:05:0013.8[facility] YhvgipdQYORJJBNVA7909-34-24 03:05:0088.4[facility] QbodgsrPWAUWEMUFW5717-78-41 03:05:00 Test Item Value Reference Range Interpretation Comments MCH (test code = MCH) 29.3 pg 27.0-31.0 N [facility] AptttryKFCQDOSXKR3130-17-80 03:05:0038.9[facility] HermannHEMATOLOGY 2011-11-29 03:05:007.5[facility] VrnjubqCCPNWLFRMG1147-90-03 03:05:32094Ixminrxw VjzevwdSNECZMOSTV3358-93-31 03:05:0057.5[facility] JbjhheyATSSZVJTPQ3623-51-42 03:05:000.5[facility] SudkvijRJPKOXPNHG9251-28-37 03:05:001.5[facility] Jona DZXNKPRXON1197-83-11 03:05:005.3[facility] BjbocqxTBVCODNBIK9308-48-95 03:05:00 35.2[facility] QywyaorTNESIQULYI5028-28-81 03:05:002.0[facility] HermannHEMATOLOGY 2011-11-29 03:05:003.3[facility] EenzmwiVPWJYAGCKL5445-81-13 03:05:000.1[facility] XdagcxzFGRBHURTVV9097-81-04 03:05:000.3[facility] CdvxrknMKMKAQOAHZ0296-81-25 03:05:000.0[facility] FwncadrPECYHACZFF7805-60-18 03:05:00 Test Item Value Reference Range Interpretation Comments UA Spec Grav (test code = UA Spec 1.010 1 N Grav) [facility] RuzjofaNDZERFFAOL0606-70-35 03:05:00 Test Item Value Reference Range Interpretation Comments UA pH (test code = UA pH) 5.5 1 5.0-8.0 N [facility] IrwipzqSXTSFTQSLF9985-32-31 03:05:00Yellow *NA*(11/28/2011 22:05:00) [facility] TxyobrlZXBBDRFFTP9135-63-85 03:05:00Clear (11/28/2011 22:05:00)[facility] StlzmhuLRVXTNTFSS7955-73-27 03:05:00Negative (11/28/2011 22:05:00)[facility] ZejdfgmIDFCODADMP1672-09-32 03:05:00Negative (11/28/2011 22:05:00)[facility] HrvrcnuPAOXHTWBRO3779-66-12 03:05:000.2[facility] BfrnujeYBSKVNKGCV0470-13-02 03:05:00>=1000 mg/dL *ABN*(11/28/2011 22:05:00)[facility] HermannURINALYSIS 2011-11-29 03:05:00Negative mg/dL *NA*(11/28/2011 22:05:00)[facility] [place] ZVAPWDYBHG4961-82-06 03:05:00Negative mg/dL (11/28/2011 22:05:00)[facility] DhzfmjfOUIGMNBSKA1513-13-48 03:05:00Negative (11/28/2011 22:05:00)[facility] BbhuhtdATPQWZPKWE7675-04-67 03:05:00Negative *NA*(11/28/2011 22:05:00)[facility] AmrqufkUCZLRLCWSL2705-12-09 03:05:00Rare /LPF (11/28/2011 22:05:00)[facility]feonliIWOGUQGSUX9515-80-67 03:05:00Occasional /HPF (11/28/2011 22:05:00) [facility] DoruodiIQTYSBYPRR5887-81-64 03:05:000-2 /HPF (11/28/2011 22:05:00) [facility] WgqlnugNGNRMQETEJ6079-75-60 03:05:000-2 /HPF (11/28/2011 22:05:00) [facility] YgillmdYHZRBIYGFO8129-58-53 03:05:00Performed (11/28/2011 22:05:00) [facility] GLU[facility]SE ASPSKDZ2477-92-78 02:45:00>400[facility] HermannBEDSIDE GLUCOSE LHIBNRP7499-90-21 06:10:83279Cnplfmkj HermannBEDSIDE GLUCOSE PNFNZGJ1097-58-95 05:04:0094[facility] IwrlfkdTKXBMOSYU1118-06-80 03:06:00 72[facility] ZzfbtlpEHCQRIECH1841-30-87 03:06:0040[facility] HermannCHEMISTRY 2011-10-25 03:06:007.42[facility] EtwnewyWPBFVZBXH3177-96-15 03:06:000.0[facility] OneqcaqCXDUPHZRO9695-46-66 03:06:00Rm Air (10/24/2011 22:06:00)[facility] RWLUTNIAV3317-33-69 03:06:0095.0[facility] JvlukpoVFNKQHFBM0858-78-94 03:06:001 [facility] CdresnhODDPLPOGP8248-23-25 03:06:0026[facility] HermannCHEMISTRY 2011-10-25 03:05:99839Lpgjdfmr YlyneqqDTCEQDPOE4571-99-86 03:05:70494Jbqqaaor KjqaenqCXYQFWJQT7627-26-44 03:05:0019[facility] GcnxujbOIPYDIHIU2805-28-13 03:05:008.4[facility] OflgilsBOIJHBOKM8284-09-45 03:05:13120Fjtdxgqf [place] QYGCYZLXR0783-88-50 03:05:18926Wfmiyvxf VohimgwXKZYIIHSJ0196-62-72 03:05:003.8 [facility] PbkebnqGSONBMDXO6180-71-64 03:05:003.7[facility] HermannCHEMISTRY 2011-10-25 03:05:0027[facility] BggbtxdBYKNWIOIO9783-33-91 03:05:0012.2[facility] IyktitxQNRFVGJFV8183-79-72 03:05:004.2[facility] ZovvemsWAEKDPXWP6094-53-81 03:05:000.8[facility] OlashxwUWQXPRKIA8938-07-88 03:05:00355Xpskkcvt [place] XIFWIIFNK5944-34-74 03:05:0024[facility] NorjhwiVTKKUUKUP9106-16-60 03:05:007.5 [facility] GbnqqnoBHMKJCHJE6037-51-36 03:05:0010[facility] HermannCHEMISTRY 2011-10-25 03:05:80248Upchjdok DoxbcirYIWEUJIHU1580-80-38 03:05:000.3[facility] BgrovtnDWVDCUCHN9527-67-41 03:05:001.0[facility] HenvqqrPMEXXBGCA2715-81-08 03:05:0017[facility] SwmhqjcWRLBQSRVQ3797-39-14 03:05:000.22[facility] AZAWQRENPG8667-49-00 03:05:000.1[facility] MtykshzVYEKTPXOIG3205-27-73 03:05:002.0 [facility] KxabkveGVXQZSEXAC1192-80-67 03:05:000.0[facility] HermannHEMATOLOGY 2011-10-25 03:05:000.4[facility] TfhiqhdUWGMGWFRBA1069-57-58 03:05:0029.4[facility] GddpvmfQKIAZXSJKS7854-72-44 03:05:004.3[facility] SvnzbwxICTCFVRVLG5265-06-18 03:05:005.7[facility] GmvakicAOUIMBNADO0882-43-08 03:05:000.4[facility] PKVRHAJPRF8344-08-97 03:05:001.2[facility] UelbfjcUFFLTIEDXF0838-68-96 03:05:00 63.3[facility] BdexravKGGODBOOFT1766-85-40 03:05:0014.0[facility] HermannHEMATOLOGY 2011-10-25 03:05:69491Fmnzwada HdevmmhGDEQQGVYUN5395-91-33 03:05:008.0[facility] QlbfajiKQMRGIQQEN7431-36-44 03:05:0013.3[facility] SpqtpsxOYVSELTIAX4567-59-81 03:05:0039.4[facility] YqgcskmLTVGEOKRFI7421-93-83 03:05:0086.2[facility] [place] BLIWZUIYBQ0084-38-11 03:05:00 Test Item Value Reference Range Interpretation Comments MCH (test code = MCH) 29.1 pg 27.0-31.0 N [facility] GrsexhdVGKHWIDDHW2715-27-64 03:05:0033.8[facility] HermannHEMATOLOGY 2011-10-25 03:05:006.9[facility] TulrojoIPEWCYCMMN3690-88-29 03:05:004.57[facility] UvhvgjdMZLNYVAYRA7071-95-01 03:05:00Positive *ABN*(10/24/2011 22:05:00)[facility] WjnlspuKOXCTLWYYI4260-05-66 03:05:00Negative (10/24/2011 22:05:00)[facility] YnjpynlZZBIOUZQCC3941-63-88 03:05:00Negative (10/24/2011 22:05:00)[facility] PgyrrlcPNOIQJVIZL0832-55-54 03:05:00>=1000 mg/dL *ABN*(10/24/2011 22:05:00) [facility]IgqxyqsOZPHYZQLQS5519-81-34 03:05:00 Test Item Value Reference Range Interpretation Comments UA pH (test code = UA pH) 6.0 1 5.0-8.0 N [facility] SouthUgvufdbHNNBVQIIIC5229-75-07 03:05:00 Test Item Value Reference Range Interpretation Comments UA Spec Grav (test code = UA Spec 1.015 1 N Grav) [facility] VqvhsxeNSLGTDSKUP3925-76-56 03:05:00Yellow *NA*(10/24/2011 22:05:00) [facility] SouthPosozbxWCBADVKTVG9185-78-36 03:05:00Clear (10/24/2011 22:05:00)[facility] VccgqrmNKICAYZDRW0203-95-19 03:05:000.2[facility] OlytkuxNJMPZTMWYH4457-14-67 03:05:00Negative *NA*(10/24/2011 22:05:00)[facility] HkxbfbmZVNCMOJJKK4024-00-39 03:05:00Negative (10/24/2011 22:05:00)[facility] UiaednpICAAILADOQ4726-43-31 03:05:00Negative *NA*(10/24/2011 22:05:00)[facility] SouthHnfjsxjYDAGWRKPTW4553-19-04 03:05:00Rare /LPF (10/24/2011 22:05:00)[facility] SouthNhkdnwzNSLWAOMTUL9198-06-02 03:05:00Moderate /HPF (10/24/2011 22:05:00)[facility] ZkaqcoeUCICVUTHPM4821-13-56 03:05:000-2 /HPF (10/24/2011 22:05:00)[facility] DtcdsfrTSHCSEUQPT8815-05-69 03:05:00Performed (10/24/2011 22:05:00)[facility] CoufwupIFMSLHBENM0298-67-58 03:05:006-10 /HPF *ABN*(10/24/2011 22:05:00)[facility] SouthGegwyxdBGEYMBBEWT9592-37-72 03:05:00Rare /LPF (10/24/2011 22:05:00)[facility]annBEDSIDE GLUCOSE TESTING 2011-10-25 02:43:00>400[facility] HermannBEDSIDE GLUCOSE WFTTOUG0562-56-19 08:15:85724Yryxqcai HermannBEDSIDE GLUCOSE PMCZYEV1876-82-80 07:07:00>400 [facility] BylvxtuRAIFMESXF5082-16-16 05:10:58897Owusvetn HermannCHEMISTRY 2011-05-23 05:10:000.8[facility] NthhfarMWUVDZCDP8206-08-21 05:10:0026[facility] OidtveoYDVDYQPFZ7264-96-48 05:10:0096[facility] FmkszwgPJLMEOXUL9266-74-14 05:10:003.9[facility] PrcqawdJDXMLHPEL5383-02-00 05:10:0012.9[facility] LPOVFCIUW3491-19-84 05:10:004.0[facility] EqfubrvOIRMMDMWC5059-65-63 05:10:007.8 [facility] LhdakvtORBZXRZHA0155-11-64 05:10:0015[facility] HermannCHEMISTRY 2011-05-23 05:10:52589Lkorouug FgoqrigDIXXCRICW1743-22-11 05:10:001.1[facility] KlceaglUHVLLKQEU4626-15-52 05:10:003.8[facility] VxyqnyxTKPAQWSZV5745-98-67 05:10:008.6[facility] WsgcvzeVFGOMSBKS2901-09-94 05:10:0011[facility] LJEASBQOP7794-89-79 05:10:000.4[facility] CjolyqvLQUNAYBIP3320-14-31 05:10:22899 [facility] DrvhccfUUAHSWWIL9971-38-84 05:10:0015[facility] HermannCHEMISTRY 2011-05-23 05:10:53483Hrjvugcd ArtpksxERFQBIBHP8194-32-53 05:10:0012[facility] CfflvaaLUGUHGSLP5791-04-75 05:10:86004Irshqrxk LrhoztlDKCKPWSLD3424-67-95 05:10:000.36[facility] JeststvMNCEEMSVAW5058-36-94 05:10:56225Ytrlinki [place] GFWWJDTBBP8971-87-03 05:10:0034.3[facility] QeuxhfqJBNGRJTTYY4503-25-71 05:10:00 7.9[facility] CgtouriDAHISBKVIN2310-28-49 05:10:0013.0[facility] HermannHEMATOLOGY 2011-05-23 05:10:00 Test Item Value Reference Range Interpretation Comments MCH (test code = MCH) 29.5 pg 27.0-31.0 N [facility] ThdnyodLNOGRKHNLL6224-65-72 05:10:0038.1[facility] HermannHEMATOLOGY 2011-05-23 05:10:0086.0[facility] LmlqaoaWAHFFTIELD3502-03-25 05:10:004.43[facility] XdvwmjxDKGHQVLCLF4406-81-58 05:10:005.9[facility] LexuaebOPNTQURISV4832-06-88 05:10:0014.0[facility] XzvqfkjZIIRYUILOO2245-87-14 05:10:000.0[facility] NUMFPTYTRJ1528-84-50 05:10:001.7[facility] EcuuiyyCMDWQSUNIB0446-11-75 05:10:000.3 [facility] CoxdoloVXXXCAVXDF7639-78-27 05:10:000.6[facility] HermannHEMATOLOGY 2011-05-23 05:10:003.8[facility] NeavwkmYHSBGVZATQ3112-39-57 05:10:000.1[facility] LbryxooBOWXVPNSBS5196-14-07 05:10:004.7[facility] JecqjquLJBHDBWWSP5562-40-40 05:10:0028.9[facility] VpwkzloMYDVFEYPUD9517-45-39 05:10:002.5[facility] [place] KRZJWRYCHZ0499-09-97 05:10:0063.3[facility] CajxhuxXUWZKTQTNG3811-79-22 05:10:000- 2 /HPF (05/22/2011 23:10:00)[facility] OlmpequMVQDVEBZBP3137-24-12 05:10:00 Occasional /HPF (05/22/2011 23:10:00)[facility] VyrefywGHQOHGMNAZ1630-79-64 05:10:00Negative (05/22/2011 23:10:00)[facility] CgxvsbkFGCGPTGAEL2336-80-47 05:10:00Negative *NA*(05/22/2011 23:10:00)[facility] MroijedQMEYKEQYOU0842-09-68 05:10:00>=1000 mg/dL *ABN*(05/22/2011 23:10:00)[facility] HermannURINALYSIS 2011-05-23 05:10:00Negative (05/22/2011 23:10:00)[facility] HermannURINALYSIS 2011-05-23 05:10:00 Test Item Value Reference Range Interpretation Comments UA pH (test code = UA pH) 5.0 1 5.0-8.0 N [facility] NufnllvGLAHPKQKYK7972-61-26 05:10:003-5 /HPF (05/22/2011 23:10:00) [facility] QdwsaxrPGLVOXKPBO7770-81-63 05:10:00Rare /LPF (05/22/2011 23:10:00) [facility] LredvcvCSFCWKISUJ9779-26-84 05:10:000.2[facility] HermannURINALYSIS 2011-05-23 05:10:00Negative (05/22/2011 23:10:00)[facility] HermannURINALYSIS 2011-05-23 05:10:00Negative *NA*(05/22/2011 23:10:00)[facility]annURINALYSIS 2011-05-23 05:10:00Negative (05/22/2011 23:10:00)[facility] HermannURINALYSIS 2011-05-23 05:10:00Performed (05/22/2011 23:10:00)[facility]annURINALYSIS 2011-05-23 05:10:00Yellow *NA*(05/22/2011 23:10:00)[facility] HermannURINALYSIS 2011-05-23 05:10:00Clear (05/22/2011 23:10:00)[facility]annURINALYSIS 2011-05-08 00:16:00Negative (05/07/2011 18:16:00)[facility]annURINALYSIS 2011-05-08 00:16:000.2[facility] IbzgpilYZLZJALWBO8300-55-55 00:16:00Negative *NA*(05/07/2011 18:16:00)[facility]BekvconPWHTZMNHII3791-76-23 00:16:00Large *ABN*(05/07/2011 18:16:00)[facility] CenterTfohjfiOZYWZDVFXW4412-71-63 00:16:006-10 /HPF *ABN*(05/07/2011 18:16:00)[facility] CenterTfeqdcpRJMKHGMVZN8659-62-98 00:16:00 Occasional /HPF (05/07/2011 18:16:00)[facility] CenterKefqltlILYCDIQXUU4956-19-33 00:16:00Performed (05/07/2011 18:16:00)[facility] CenterOqzsooaZKNKOJFFRW7772-63-47 00:16:00Few /LPF (05/07/2011 18:16:00)[facility] NorthwestKndojhvVNZMLJXQXZ5694-38-92 00:16:00Negative (05/07/2011 18:16:00)[facility] NorthwestShhayyjTSTJLMCJCX7112-56-29 00:16:0021-50 /HPF *ABN*(05/07/2011 18:16:00)[facility]YS 2011-05-08 00:16:00Trace *ABN*(05/07/2011 18:16:00)[facility] 2011-05-08 00:16:00>=1000 mg/dL *ABN*(05/07/2011 18:16:00)[facility] IHWQFJXREN6580-41-09 00:16:00Negative (05/07/2011 18:16:00)[facility] TMLSQFDYNF5185-07-88 00:16:00 Test Item Value Reference Range Interpretation Comments UA Spec Grav (test code = UA Spec 1.010 1 N Grav) [facility] CenterHdapmnoDRKGUNYZAG3106-06-58 00:16:00Clear (05/07/2011 18:16:00)[facility] CenterBcrxnocELGBYPHWJQ0641-48-26 00:16:00 Test Item Value Reference Range Interpretation Comments UA pH (test code = UA pH) 6.0 1 5.0-8.0 N [facility] SouthQljehvqFQGLKMBYCA1097-46-03 00:16:00Yellow *NA*(05/07/2011 18:16:00) [facility]annBEDSIDE GLUCOSE KTHMWZB5532-21-56 06:51:05835Vwgdafwo [place] DOLJJOWWV5889-92-92 04:20:00Negative (04/19/2011 22:20:00)[facility] [place] JSIFUOMSV9828-63-08 04:20:004.1[facility] PlkuageCBFXMFVVD5267-87-13 04:20:0015 [facility] FvksdxnBIYJVGWIQ2071-43-28 04:20:009.2[facility] HermannCHEMISTRY 2011-04-20 04:20:0096[facility] FbzwxozJBSYWDJAH9652-92-10 04:20:0016.2[facility] CrpkkdqBGVGYOIHA1737-57-75 04:20:0024[facility] TrzgptuIWTABSXME2019-64-36 04:20:004.0[facility] RahsnqeNNLPQZMLB3421-13-15 04:20:008.1[facility] [place] QKKCAZRQF5735-91-12 04:20:000.4[facility] DiibrwbZUCODWLAN1170-28-88 04:20:0092 [facility] XjfwyvyLINGQFMXT4184-93-01 04:20:004[facility] JubblwdIOLHFHOIY5024-15-93 04:20:0014[facility] KqfhqtdYGAESORVF2203-13-51 04:20:001.0[facility] [place] CGSZERLHY6660-39-76 04:20:72831Vlywysik LtdwoehNIBEKQWGE0005-40-08 04:20:000.8 [facility] WewqsxuJTFDYDXYM3759-85-19 04:20:0012[facility] HermannCHEMISTRY 2011-04-20 04:20:004.2[facility] HjmweuiYJMVOZJJM8884-18-60 04:20:09373Zgitsoem RpvcfaxJGEBYRZVU3207-74-37 04:20:03756Aoemzhxb ZvfzndvOMRHMGYTE4292-85-60 04:20:0070[facility] QkwkcgcCBXQEJKUNO3414-87-20 04:20:007.9[facility] MMBYZLHEPS6318-51-83 04:20:22399Uunhqkck CxdbjqeFAXKJPJWPC1739-93-37 04:20:00 4.54[facility] MherhdiKGJFJPLWPA5026-10-25 04:20:0013.3[facility] HermannHEMATOLOGY 2011-04-20 04:20:00 Test Item Value Reference Range Interpretation Comments MCH (test code = MCH) 29.3 pg 27.0-31.0 N [facility] GqdwormRVDTDQIARB0882-52-93 04:20:0033.9[facility] HermannHEMATOLOGY 2011-04-20 04:20:0014.0[facility] WbctuymNEHATWEJNY6949-43-52 04:20:0039.3[facility] ZxjexvnDKHWNJZJJU4597-61-05 04:20:0086.5[facility] HvsexnyQQVZRINTXK9664-92-79 04:20:008.6[facility] GhzrdcuLXYCTPNFLP4681-98-25 04:20:000.1[facility] PHDUGAKBJT2737-73-15 04:20:000.1[facility] WamwxdjCVGAZNQJEC6747-74-97 04:20:000.9 [facility] IlghcgzHTTGNKFRPB0897-97-79 04:20:0019.9[facility] HermannHEMATOLOGY 2011-04-20 04:20:005.4[facility] IqqmshkAUPBPYVHOE9187-12-25 04:20:0073.1[facility] MlxtjfjVUVDWSWUVE4125-52-91 04:20:001.7[facility] UuectooGOCSMIBXEY6123-83-84 04:20:000.5[facility] JfdgkccTCCEKCLPAL1030-17-79 04:20:000.7[facility] YKPXZDWQPY4358-75-48 04:20:006.3[facility] DtwzdekVMHGCAZXLO8179-55-70 02:29:00 Negative *NA*(04/19/2011 20:29:00)[facility] PffktvjZNOMIJRQUQ9415-12-60 02:29:00 Negative *NA*(04/19/2011 20:29:00)[facility] CiwdbtvOZTPXPBNTO2379-16-50 02:29:00 Negative (04/19/2011 20:29:00)[facility] VikgcdmNAEAWVPCDW3520-77-39 02:29:00 Negative (04/19/2011 20:29:00)[facility] OkvsnhgNMWHZSZLXB5017-27-16 02:29:00 Test Item Value Reference Range Interpretation Comments UA pH (test code = UA pH) 6.0 1 5.0-8.0 N [facility] VuzzjkeHYQZZBCKAZ5145-10-17 02:29:00>=1000 mg/dL *ABN*(04/19/2011 20:29:00)[facility] HzulyhcGYHZPLPERD8797-29-81 02:29:00Performed (04/19/2011 20:29:00)[facility] OktfggmBGVIMWOFOK1547-33-46 02:29:00Negative (04/19/2011 20:29:00)[facility] HhkldtdCQZQKILLNR5288-24-52 02:29:000.2[facility] [place] WPXZTKMTES7900-14-69 02:29:00Negative (04/19/2011 20:29:00)[facility] [place] FZPDEFDOEA9028-82-84 02:29:00Occasional /HPF (04/19/2011 20:29:00)[facility] OusabudAPKXYTIWRO6027-13-60 02:29:00Occasional /LPF (04/19/2011 20:29:00) [facility] FoviixqTHCWHQXRZO5013-72-86 02:29:003-5 /HPF (04/19/2011 20:29:00) [facility] KdpeeseIXNKHSORNI3124-88-33 02:29:000-2 /HPF (04/19/2011 20:29:00) [facility] FaijhslNXMGOQNZOQ6357-43-94 02:29:00Clear (04/19/2011 20:29:00)[facility] WeuinpuHKZEJLHTPN3030-32-43 02:29:00Yellow *NA*(04/19/2011 20:29:00)[facility] XYOVHZQ6658-13-54 05:47:63354Vdolvcqu HermannCHEMISTRY 2011-03-26 02:45:00<3[facility] AqaoidaXVJOIMYZC5014-32-53 02:45:009.2[facility] JanscpcLDMOZYAHY2536-72-23 02:45:0014.0[facility] GddxepmUAPTZIJKL7874-02-18 02:45:0025[facility] VvdwvhwOHGHPDBME4175-21-36 02:45:0097[facility] [place] ZMKPXPYLP2678-68-64 02:45:004.0[facility] RfchvovNTCSQHTTV3604-39-20 02:45:000.7 [facility] PfycvbfRRDBUBQGL6823-17-97 02:45:13434Dbnsbvqk HermannCHEMISTRY 2011-03-26 02:45:000.5[facility] OuemxuzORMXRVDKD4908-20-54 02:45:0069[facility] VmkwhwuZLOASERET1689-37-71 02:45:0014[facility] PxekveaOHNFSWGRP6819-06-32 02:45:003.9[facility] EjomrvqSMLPZXTLL2812-78-81 02:45:007.8[facility] [place] SWUVFUXFA5011-66-36 02:45:0019[facility] AggrtwzODSHQEEPB4306-13-02 02:45:001.0 [facility] OfjtuqeSMYJGBPHF5412-08-94 02:45:003.9[facility] HermannCHEMISTRY 2011-03-26 02:45:0013[facility] EbsegheKZQKMUYVY4263-63-51 02:45:61849Dhwmeltw WfftjwtAQTAYJPWZ4777-86-25 02:45:26784Icjinsjv DnncuybYTMCOYJLNX0564-68-00 02:45:0012.7[facility] PujyejkCVATNZYLRN9688-91-37 02:45:0014.0[facility] [place] JEJXFNRUWM5584-59-13 02:45:0036.9[facility] TtgfacrTNFXIMERTR1849-80-79 02:45:00 85.5[facility] MmmborpINWTOSIZCH0592-77-86 02:45:00 Test Item Value Reference Range Interpretation Comments MCH (test code = MCH) 29.5 pg 27.0-31.0 N [facility] OmmqoeuIUJDZZNRDJ3422-25-39 02:45:0034.5[facility] HermannHEMATOLOGY 2011-03-26 02:45:79058Vfdqxcfk GuccrloJMNZHCZBRO7791-29-20 02:45:008.2[facility] SgyznirDZVGZFOMGK8401-53-94 02:45:006.9[facility] PhveiniRXKFUTISTF1123-78-54 02:45:004.32[facility] DofbcvpPWKREGFPIK5216-97-56 02:45:000.5[facility] TQWDPGVDRZ8534-95-26 02:45:004.6[facility] SpzlslzPEHIVHCKOC9121-15-29 02:45:001.9 [facility] WbenzbxTYUFQPVUQN4139-86-55 02:45:000.3[facility] HermannHEMATOLOGY 2011-03-26 02:45:000.1[facility] OvqzzlmGDOIXXHFRG8605-18-50 02:45:000.0[facility] GeauexbJLMPNVVYPW1870-58-30 02:45:0027.2[facility] JimkxsaTEUAZVVOBM2005-26-17 02:45:0066.3[facility] SsndjxmNXIQKALVDO7641-89-39 02:45:004.8[facility] [place] DDPWNSUHNN4947-90-09 02:45:001.2[facility] RcyajdvRBGNIIYFSL1568-36-65 02:00:00 Occasional /HPF (03/25/2011 20:00:00)[facility] HliascwCWVZJXLWWE8662-99-25 02:00:00Occasional /HPF *ABN*(03/25/2011 20:00:00)[facility]annURINALYSIS 2011-03-26 02:00:00Rare /LPF (03/25/2011 20:00:00)[facility]annURINALYSIS 2011-03-26 02:00:000-2 /HPF (03/25/2011 20:00:00)[facility]annURINALYSIS 2011-03-26 02:00:000-2 /HPF (03/25/2011 20:00:00)[facility]annURINALYSIS 2011-03-26 02:00:00Negative (03/25/2011 20:00:00)[facility]annURINALYSIS 2011-03-26 02:00:00Performed (03/25/2011 20:00:00)[facility]annURINALYSIS 2011-03-26 02:00:00Negative (03/25/2011 20:00:00)[facility]annURINALYSIS 2011-03-26 02:00:00Negative (03/25/2011 20:00:00)[facility] HermannURINALYSIS 2011-03-26 02:00:000.2[facility] GyyrrmgBBOOXXDZIA6394-26-91 02:00:00Yellow *NA*(03/25/2011 20:00:00)[facility] TvhmyewJCWEVTOXNC9753-34-21 02:00:00Clear (03/25/2011 20:00:00)[facility]NzvqhimXDDNNHLXKV6907-91-50 02:00:00Negative *NA*(03/25/2011 20:00:00)[facility] SouthUnshimoQECHRCRHMT1284-80-66 02:00:00>=1000 mg/dL *ABN*(03/25/2011 20:00:00)[facility] SouthVvoedgsULSZEYCGKM0499-95-80 02:00:00 Negative *NA*(03/25/2011 20:00:00)[facility] SouthZpezhmrOMAWYOLHIR2503-14-54 02:00:00 Test Item Value Reference Range Interpretation Comments UA pH (test code = UA pH) 6.0 1 5.0-8.0 N [facility] BiuiahxCWUKNBQBWR7896-18-91 02:00:00Negative (03/25/2011 20:00:00) [facility] GLUCOSE LYHIJWN7144-47-43 16:26:67473.0[facility] LBQYARFFQ9517-14-06 15:30:00<0.6[facility] CofmmblRYGSAWAPO5125-67-70 15:30:00 <0.5[facility] CnjmtjrATXICUAWA2788-05-45 15:30:0077.0[facility] HermannCHEMISTRY 2011-02-11 15:30:0077.0[facility] VcefhfaGEBSDVCCH2006-64-91 15:30:00<0.02 [facility] CGQGADK9282-90-68 12:00:43917.0[facility] VBVBKUCZU4564-33-88 09:29:001.5[facility] IghifxlZBUIQPDXV1078-05-94 09:29:15148.0 [facility] GarcukiNWCILNKDG6788-64-71 09:29:0011.0[facility] HermannCHEMISTRY 2011-02-11 09:29:007.8[facility] PzpfujvGRDCBDZYO3320-45-22 09:29:0013.7[facility] GdmyjheKLZAMADYS6672-46-36 09:29:000.6[facility] HhakprtWSHJSBKRQ7019-90-06 09:29:30706.0[facility] XrkflrhXPPUVJZMA2410-77-47 09:29:003.7[facility] UEUFQROOL9287-32-45 09:29:41470.0[facility] XndhimzLYAAQJIYP0492-92-75 09:29:00 24.0[facility] VgiancaZNUJVCGMD4286-08-62 09:29:00<0.02[facility] CJSGGOMDR8857-84-43 09:29:0071.0[facility] PutzlvjKAHXSRORM7466-20-28 09:29:0071.0 [facility] KywffbyGABKNKJBUT6844-63-36 09:29:007.8[facility]annHEMATOLOGY 2011-02-11 09:29:0014.1[facility] GykrzsiLYLAKAPUPC1632-50-25 09:29:006.8[facility] ClenrxjGODNVIMPUD3641-64-85 09:29:0011.8[facility] CdlphytWSCHWWWBFW1387-09-66 09:29:004.11[facility] FfvtlbpOZDJXBZUEO7251-30-69 09:29:0035.3[facility] LDPGFJHKLF3784-46-44 09:29:00 Test Item Value Reference Range Interpretation Comments MCH (test code = MCH) 28.7 pg 27.0-31.0 N [facility] SagfiahZHSBXQVNJO0310-45-27 09:29:0085.7[facility]annHEMATOLOGY 2011-02-11 09:29:75098.0[facility] TgenpguYVVDCEPXSY4170-82-65 09:29:0033.5 [facility] CyfyvqwJWHPKCJHXY4404-79-44 09:29:0026.3[facility]annHEMATOLOGY 2011-02-11 09:29:0065.8[facility] BgwokfbRAXSPXJIXH0241-16-07 09:29:006.1[facility] ObdqimtJVSEVCIWSM2167-80-98 09:29:001.2[facility] WbfuwboPBGJFPEFYV9358-88-57 09:29:000.6[facility] SzzfykkRQMEANVQRU6610-91-42 09:29:004.5[facility] XBBQZPRUBK2152-73-11 09:29:001.8[facility] EjwcfkcDFEMMVHEKW1925-15-81 09:29:000.4 [facility] WlwaoatQVCXHHWPZG7379-29-44 09:29:000.0[facility]annHEMATOLOGY 2011-02-11 09:29:000.1[facility] HermannBEDSIDE GLUCOSE QRYFEEI0091-39-51 05:34:00 151.0[facility] IjsbjdhPYGDFXFCFM1092-30-67 03:26:00>=1000 mg/dL *ABN*(02/10/2011 22:26:00) ??[facility] SouthKdjfjksIOBVCFAJEY9796-42-82 03:26:00 Negative mg/dL *NA*(02/10/2011 22:26:00) ??[facility] SouthFaxiymqFSBDQVDMKW3728-50-24 03:26:00 Test Item Value Reference Range Interpretation Comments UA pH (test code = UA pH) 6.5 1 5.0-8.0 N [facility] SouthNxgepeiCPODJIWTVS4478-17-07 03:26:00Negative mg/dL (02/10/2011 22:26:00) ??[facility] SouthDwhmyemQYWKCVPYAO2280-25-87 03:26:00Negative (02/10/2011 22:26:00) ??[facility] SouthGraftpsNMQMYSROLY4280-26-29 03:26:00Negative (02/10/2011 22:26:00) ??[facility] SouthYcrdyukVMQIZHYORW3416-83-21 03:26:000.2[facility] ENQEAWUKQT4661-28-37 03:26:00Negative (02/10/2011 22:26:00) ??[facility] QEMLPWWRXP6111-98-04 03:26:00Negative *NA*(02/10/2011 22:26:00) ??[facility] SouthUrghndnXYBTAOMPIE2547-09-39 03:26:00Clear (02/10/2011 22:26:00) ??[facility] IzwfszcTITYZBNKWG0988-79-96 03:26:00 Test Item Value Reference Range Interpretation Comments UA Spec Grav (test code = UA Spec 1.01 1 N Grav) [facility] AcvctarYLWESCBFFH1629-40-34 03:26:00Yellow *NA*(02/10/2011 22:26:00) ?? [facility] OvjucqjEXPDEQHUIC3360-32-94 03:26:000-2 /HPF (02/10/2011 22:26:00) ?? [facility] VriivmwINRYTFQVVC6273-38-68 03:26:006-10 /HPF *ABN*(02/10/2011 22:26:00) ??[facility] CjjttyySXUNUFVFBD6507-72-85 03:26:00Few /LPF (02/10/2011 22:26:00) ??[facility] IsakqfqEEZPNXBRVV2227-86-64 03:26:00Few /HPF (02/10/2011 22:26:00) ??[facility] EfwfxzpTPVCNZGYWX4889-93-70 03:26:00Occasional /HPF *ABN*(02/10/2011 22:26:00) ??[facility] OpvxpraLERYWUZXIB8701-48-19 03:26:00 Performed (02/10/2011 22:26:00) ??[facility] TzmxsvbMUYLHLTHS1120-54-91 03:03:00 Negative *NA*(02/10/2011 22:03:00) ??[facility] CsvnsezMDFJWGEKF8901-43-70 03:03:00<0.5[facility] GzxvsatPJSBOTYSA9436-53-04 03:03:00<0.02[facility] MkgymwlYEPWSFPLQ9852-28-45 03:03:007.0[facility] GghtdnfLECJBUICX0483-97-04 03:03:004.0[facility] FzgxdfiIBDIPLYFZ5832-23-88 03:03:007.5[facility] WTYQJVMJD1718-92-66 03:03:00 Test Item Value Reference Range Interpretation Comments A/G Ratio (test code = A/G Ratio) 1.1 1 0.7-1.6 N [facility] XwzbmkiYVYLSIWXR9806-51-31 03:03:003.5[facility] HermannCHEMISTRY 2011-02-11 03:03:0014.0[facility] HazpmnaHFZAQJCLL3078-37-76 03:03:000.3[facility] JwhydvhWAUKEKBPR6031-66-71 03:03:0069.0[facility] WjwbwfzJKPJVCUEX9659-96-16 03:03:0022.0[facility] EsvdyutYLPTMRPJJ7130-18-39 03:03:00 Test Item Value Reference Range Interpretation Comments B/C Ratio (test code = B/C Ratio) 20.0 1 6-25 N [facility] XsxqvflYFGWIBMUC9761-16-04 03:03:0096.0[facility] HermannCHEMISTRY 2011-02-11 03:03:008.7[facility] OfyloxkTAUOORCRR0537-72-08 03:03:0017.3[facility] RtcogqyXLBSLEAHT5158-30-06 03:03:81485.0[facility] WfwbylgITQWCKXRA8965-08-07 03:03:22679.0[facility] EotxtykVZMDTKQED5967-08-19 03:03:000.6[facility] UHUSKIMBO4414-08-87 03:03:0012.0[facility] IvucarlXBIVPVOJS6094-43-67 03:03:004.3 [facility] YdfkldsJNVQPLKAB0096-61-49 03:03:00Negative (02/10/2011 22:03:00) ?? [facility] TrrbtteVWMNPTSGRJ2481-18-16 03:03:003.9[facility]annHEMATOLOGY 2011-02-11 03:03:002.0[facility] XetijtkDXIPQBFGBC3259-75-92 03:03:000.5[facility] BnpocsrWYXQKZOIHC0610-00-97 03:03:000.4[facility] JoismopOZJAJMQGWK3365-63-69 03:03:000.1[facility] SsovyksBCJMPGLVJW4239-33-54 03:03:0060.9[facility] BDNPUCRCYT1791-56-71 03:03:0031.7[facility] HbaelsmINZNUIOQOE4928-22-58 03:03:00 1.2[facility] HiltnclREHPYZZULX6575-92-02 03:03:005.7[facility]annHEMATOLOGY 2011-02-11 03:03:000.0[facility] AlitpyuROQDKOKABS0854-12-78 03:03:00 Test Item Value Reference Range Interpretation Comments PT (test code = PT) 13.9 s 12.0-14.7 N [facility] SouthOenegafVTHGBXYNRL3765-91-98 03:03:00 Test Item Value Reference Range Interpretation Comments PTT (test code = PTT) 28.4 s 22.9-35.8 N [facility] SouthFrntmdaMFCGYBCHGC6592-76-10 03:03:00 Test Item Value Reference Range Interpretation Comments INR (test code = INR) 1.07 1 0.85-1.17 N [facility] SouthUcvqrxyWIWMILOOPP0998-10-42 03:03:0033.7[facility]annHEMATOLOGY 2011-02-11 03:03:0014.3[facility] EgxlizmDDGKPBZRXL6237-17-76 03:03:10004.0 [facility] SouthYkdlhtbZYRETVWKBT8611-34-20 03:03:007.9[facility] HermannHEMATOLOGY 2011-02-11 03:03:0085.9[facility] DovcjiaMXGSBKEPKN7331-95-76 03:03:004.43[facility] ZulnjxgDIORTOZMNN2012-50-56 03:03:0038.1[facility] UkkhhjsNMLPCMJAXU5610-72-27 03:03:0012.8[facility] HrbjpiaWWVEWUKWTH0155-01-13 03:03:00 Test Item Value Reference Range Interpretation Comments MCH (test code = MCH) 28.9 pg 27.0-31.0 N [facility] SouthMazzahvLTIKKWGEEU5543-19-84 03:03:006.5[facility]annHEMATOLOGY 2011-02-11 03:03:001.1[facility] HermannBEDSIDE GLUCOSE UVCWLMV3158-97-88 16:39:00 175.0[facility]ann[facility]EDS[facility] GLUCOSE KLHTBRJ8078-97-17 12:16:0088.0[facility] GLU[facility]SE YVBXBPR9681-25-26 11:27:0070.0[facility]annCHEMISTRY 2011-01-15 10:45:00<0.6[facility] NluezlaRTWZQNNOE4894-17-96 10:45:00<0.5 [facility] AbghejjJGKECIRFA2809-26-82 10:45:00<0.02[facility]annCHEMISTRY 2011-01-15 10:45:0088.0[facility] GpkcizxCRWSJMMAU0837-28-02 10:45:000.6[facility] QcirrgnBQPWMGLSX6795-31-07 10:45:003.4[facility] EiqkmmlMTTOTFVWX4764-24-47 10:45:33612.0[facility] HltcgzaEKPGISHJD8581-63-47 10:45:0013.0[facility] Jona VUMPBDDRM5970-91-71 10:45:0025.0[facility] ZwcexteNPBKRYJHL0328-59-19 10:45:008.0 [facility] JyjxgjxUAGGLSJMN2453-71-07 10:45:0018.4[facility]annCHEMISTRY 2011-01-15 10:45:23851.0[facility] WzbuvrqBHVWMDZFY6282-74-87 10:45:33274.0 [facility] KlxjsuaYHZPQWXEA4548-29-97 10:45:0096.0[facility]annCHEMISTRY 2011-01-15 10:45:00 Test Item Value Reference Range Interpretation Comments CHD Risk (test code = CHD Risk) 3.8 1 3.90-5.80 L [facility] XwaukkvCRLVTOZZI8067-92-67 10:45:0045.0[facility]annCHEMISTRY 2011-01-15 10:45:21718.0[facility] ZonvvyqEDUWDGZCO5462-60-05 10:45:66687.0 [facility] GoxdsdeKBNWZNYRB6083-53-92 01:43:00<0.5[facility]annCHEMISTRY 2011-01-15 01:43:00<0.6[facility] YvniuxlGCNFBTKQO8731-46-44 01:43:0083.0 [facility] AtzbuyfEXEJPCEYS9378-88-76 01:43:00<0.02[facility]annCHEMISTRY 2011-01-14 21:36:00Negative (01/14/2011 16:36:00) ??[facility]annCHEMISTRY 2011-01-14 20:36:00<0.6[facility] OwlpzpkBWKSFHSUN9459-56-15 20:36:0013.0 [facility] WxknuxvAVURCDJFA6305-76-30 20:36:00<3.0[facility]annCHEMISTRY 2011-01-14 20:36:000.5[facility] CmndfziQYGMXKNYL8657-54-01 20:36:003.8[facility] XbftsnqZZHGJPPUU2380-56-13 20:36:0017.0[facility] EtfilkySDZXGGLQJ7286-37-96 20:36:0071.0[facility] OyrevkcXBAYLLVKC9562-07-89 20:36:003.8[facility] UCKCGMAAQ3598-56-80 20:36:76112.0[facility] PqcxpxfJAFCVDIJN1790-34-81 20:36:00 22.0[facility] KbidoxzAPDYKFHQN2570-97-37 20:36:0014.8[facility]annCHEMISTRY 2011-01-14 20:36:008.6[facility] EtsymwoXSRQTLRXF3799-32-95 20:36:09374.0[facility] NrxqgzwPLNGOQUUS1241-98-39 20:36:003.6[facility] PjzsfbvVEJZRAGKG8131-60-31 20:36:00 Test Item Value Reference Range Interpretation Comments A/G Ratio (test code = A/G Ratio) 1.1 1 0.7-1.6 N [facility] TsdowcwKXAPNJNXD3655-32-16 20:36:00 Test Item Value Reference Range Interpretation Comments B/C Ratio (test code = B/C Ratio) 11.0 1 6-25 N [facility] FowhdljYPCBISPQU8207-26-23 20:36:007.4[facility]annCHEMISTRY 2011-01-14 20:36:91900.0[facility] KibirwuANTFTIALV1651-43-58 20:36:009.0[facility] QgvzsegVKDVUXFOX3175-19-84 20:36:000.8[facility] KjbelaaNHJYPHZUZ3974-66-73 20:36:00<0.02[facility] BolywpyEQWENCWCX7617-54-99 20:36:00<0.5[facility] NgmsxnuMRRAUHLXL5271-64-45 20:36:0078.0[facility] RtodbkoEYULQSSPBE5788-92-14 20:36:000.3[facility] QezznvdHUXWFHMGER7462-93-92 20:36:001.7[facility] RHCEAWHXIK8946-66-18 20:36:003.5[facility] TijhicgRBBPZJGHJV3581-92-84 20:36:000.9 [facility] XfslillLLZUDQRECK5564-89-96 20:36:000.9[facility] HermannHEMATOLOGY 2011-01-14 20:36:000.0[facility] OxyrtypCTACQUUCTM6123-36-82 20:36:000.1[facility] TiwefccKJOOEBPCGK0186-59-25 20:36:0030.7[facility] HdnftscIWEITFKLBA5469-11-34 20:36:0063.0[facility] FnzcolnLSSVXAKEGB2827-35-10 20:36:004.5[facility] HEYUZEGWQH9865-41-04 20:36:0014.6[facility] ThoxwxbZMSAXPWFEY6799-07-38 20:36:00 34.0[facility] WmpprjiDHBTGZNFER3032-87-65 20:36:008.0[facility] HermannHEMATOLOGY 2011-01-14 20:36:00687.0[facility] UdlxeshNEYSPLPQCW0156-83-81 20:36:00 Test Item Value Reference Range Interpretation Comments MCH (test code = MCH) 28.8 pg 27.0-31.0 N [facility] GrgiixbLNQRIORMED1567-40-72 20:36:0013.2[facility] HermannHEMATOLOGY 2011-01-14 20:36:004.6[facility] SespjbtFRWZMWMXVG6998-13-13 20:36:0038.9[facility] PbnaozoPIBWFXFPFA5710-63-99 20:36:0084.6[facility] UnjldccAQTZNNRGJA4711-40-17 20:36:005.emorial QotxlxwOLAPPXZAAW6622-77-01 20:36:00 Test Item Value Reference Range Interpretation Comments PT (test code = PT) 13.6 s 12.0-14.[address] [facility]EnvvxabEIUMRDFDRK0799-22-81 20:36:00 Test Item Value Reference Range Interpretation Comments PTT (test code = PTT) 30.2 s 22.9-35.[address] [facility] HospitalOpjgawmNMBLAGZMDB4139-79-84 20:36:00 Test Item Value Reference Range Interpretation Comments INR (test code = INR) 1.04 1 0.85-1.[address] [facility] HospitalLlwlrbhODPAIRETMV1637-06-96 20:36:001.5[facility]
--- NOTE | 2019-12-13 16:15 | EDPHYS ---
Physician Documentation [facility] Name: Melissa De Oliveira Age: 54 yrs Sex: Female : 1965 Arrival Date: 12/13/2019 Time: 14:35 Bed 19 Private MD: ED Physician Chandana Nelson HPI: 12/12 16:08 This 54 yrs old Female presents to ER via Ambulatory with complaints of pm1 Insect Bite. 16:08 Patient presents to ED for recheck of: Heel ulcer. The affected area is on the heel of pm1 right foot. Previous treatment: Outpatient prescription(s): The patient was given prescription(s) for clindamycin. Progress: The patient reports excellent improvement in the affected area. There has been resolution, improvement, or non-development of any drainage, fever, pain, redness or swelling. The patient has not experienced similar symptoms in the past. The patient has been recently seen at the [facility] Emergency Department, Same complaint 1 month ago. Onset of ulceration to right heel on 11/13. Patient concerned that ulceration has not completely resolved. Patient completed clindamycin on Friday. PRIMER CHARGER: 16:01 [facility] N/A - tw2 Historical: - Allergies: 15:10 Codeine; aa5 15:10 Ritalin; aa5 15:10 Tramadol HCl; aa5 - Home Meds: 15:10 Levemir 100 unit/mL subcutaneous soln [Active]; gabapentin oral oral [Active]; aa5 - PMHx: 15:10 Diabetes - IDDM; neuropathy; aa5 - PSHx: 15:10 ; partial hysterectomy; Cholecystectomy; Appendectomy; aa5 - Immunization history:: Adult Immunizations unknown. - Social history:: Smoking status: Patient denies any tobacco usage or history of. ROS: 16:08 Constitutional: Negative for fever, chills, and weight loss, Cardiovascular: Negative pm1 for chest pain, palpitations, and edema, Respiratory: Negative for shortness of breath, cough, wheezing, and pleuritic chest pain. 16:08 Back: Negative for injury and pain, MS/Extremity: Negative for injury and deformity. 16:08 Neuro: Negative for headache, weakness, numbness, tingling, and seizure. 16:08 Skin: Positive for ulceration, of the heel of right foot, Negative for abscesses, cellulitis, drainage. 16:08 All other systems are negative. Exam: 16:08 Constitutional: This is a well developed, well nourished patient who is awake, alert, pm1 and in no acute distress. Head/Face: Normocephalic, atraumatic. 16:08 MS/ Extremity: Pulses equal, no cyanosis. Neurovascular intact. Full, normal range of motion. 16:08 Cardiovascular: Exam negative for acute changes, Rate: normal, Rhythm: regular, Pulses: no pulse deficits are appreciated. 16:08 Respiratory: Exam negative for acute changes, respiratory distress, shortness of breath. 16:08 Skin: Appearance: normal except for affected area, small ulceration with central scab to right heel. No drainage, surrounding cellulitis or abscess. 16:08 Neuro: Exam negative for acute changes, Orientation: is normal, Mentation: is normal, Motor: is normal, moves all fours, Gait: is steady, at a normal pace, without difficulty. Vital Signs: 15:00 BP 116 / 87; Pulse 93; Resp 18 S; Temp 97.9(O); Pulse Ox 100% on R/A; Weight 49.9 kg aa5 (R); Height 5 ft. 4 in. (162.56 cm) (R); Pain 8/10; 16:28 BP 133 / 89; Pulse 72; Resp 17; Pulse Ox 99% on R/A; tw2 15:00 Body Mass Index 18.88 (49.90 kg, 162.56 cm) aa5 MDM: 15:56 Patient medically screened. pm1 16:08 Data reviewed: vital signs. Data interpreted: Pulse oximetry: on room air is 100 %. pm1 Interpretation: normal. Counseling: I had a detailed discussion with the patient and/or guardian regarding: the historical points, exam findings, and any diagnostic results supporting the discharge/admit diagnosis, the need for outpatient follow up, a family practitioner, a shank boner, to return to the emergency department if symptoms worsen or persist or if there are any questions or concerns that arise at home. 16:08 ED course: Patient completed 10 day course of clindamycin on Friday, Was prescribed for pm1 ER visit here for the same complaint. Patient is here because she is having pain to the wound and she expected the scab to be gone by now. Patient showed me and the nurse a picture on her right heel wound from 10 days ago that showed marked improvement. The scab has decreased in size by 1/3 to 1/2. Since there is no erythema, discharge or signs of infection, antibiotic treatment is not needed. Also since the patient just finished clindamycin, I don't want to give her c-difficile with unnecessary PO antibiotics. Instructed the patient to continue taking applying topical Bactroban to the area and to follow up with her PCP or podiatry. Patient reports blood sugars in the range of 120 to 180's with her Levemir. Administered Medications: 16:25 Drug: [place] 5 mg-325 mg 1 tabs Route: PO; tw2 16:29 Follow up: Response: No adverse reaction; RASS: Alert and Calm (0) tw2 16:25 Drug: Ondansetron (Zofran) 4 mg Route: PO; tw2 16:29 Follow up: Response: No adverse reaction tw2 Disposition: 17:19 Co-signature as Attending Physician, Chandana Nelson MD. rn Disposition: 12/13/19 16:14 Discharged to Home. Impression: Right heel ulcer. - Condition is Stable. - Discharge Instructions: Diabetes and Foot Care, Preventing Pressure Injuries, Pressure Injury. - Prescriptions for Zofran ODT 4 mg Oral tablet,disintegrating - place 1 tablet by TRANSLINGUAL route every 8 hours As needed; 12 tablet. Tylenol- Codeine #3 300-30 mg Oral Tablet - take 2 tablet by ORAL route every 6 hours As needed; 30 tablet. - Medication Reconciliation Form, Thank You Letter, Antibiotic Education, Prescription Opioid Use form. - Follow up: Emergency Department; When: As needed; Reason: Worsening of condition. Follow up: Private Physician; When: 2 - 3 days; Reason: Recheck today's complaints, Continuance of care, Re-evaluation by your physician. - Problem is new. - Symptoms have improved. Signatures: Chandana Nelson MD MD rn Calderon, Audri, RN RN aa5 Ari Agee, LINGO CLEANER LINGO CLEANER pm1 Jo Ann Weaver RN RN tw2 Corrections: (The following items were deleted from the chart) 16:30 16:14 12/13/2019 16:14 Discharged to Home. Impression: Right heel ulcer. Condition is tw2 Stable. Forms are Medication Reconciliation Form, Thank You Letter, Antibiotic Education, Prescription Opioid Use. Follow up: Emergency Department; When: As needed; Reason: Worsening of condition. Follow up: Private Physician; When: 2 - 3 days; Reason: Recheck today's complaints, Continuance of care, Re-evaluation by your physician. Problem is new. Symptoms have improved. pm1
--- NOTE | 2019-12-13 16:15 | ER ---
Nurse's Notes [facility] Name: Melissa De Oliveira Age: 54 yrs Sex: Female : 1965 Arrival Date: 12/13/2019 Time: 14:35 Bed 19 Private MD: Diagnosis: Right heel ulcer Presentation: 12/12 15:00 Chief complaint: Patient states: "I came here because I thought I got an insect bite on aa5 my right foot and they gave me antibiotics and then I came back and they changed the antibiotics and I did follow-up with Li Chua NP but she didn't do anything different and I feel like it's getting worse and it's definitely more painful". 15:00 Coronavirus screen: Client denies travel out of the [place] in the last 14 days. At this aa5 time, the client does not indicate any symptoms associated with coronavirus-19. Ebola Screen: Patient negative for fever greater than or equal to 101.5 degrees Fahrenheit, and additional compatible Ebola Virus Disease symptoms. Initial Sepsis Screen: Does the patient meet any 2 criteria? No. Patient's initial sepsis screen is negative. Does the patient have a suspected source of infection? No. Patient's initial sepsis screen is negative. Risk Assessment: Do you want to hurt yourself or someone else? Patient reports no desire to harm self or others. Onset of symptoms was 2019. 15:00 Acuity: DEYA 3 aa5 15:00 Method Of Arrival: Ambulatory aa5 DELIVERY HELPER: 16:01 LMP N/A - tw2 Historical: - Allergies: 15:10 Codeine; aa5 15:10 Ritalin; aa5 15:10 Tramadol HCl; aa5 - Home Meds: 15:10 Levemir 100 unit/mL subcutaneous soln [Active]; gabapentin oral oral [Active]; aa5 - PMHx: 15:10 Diabetes - IDDM; neuropathy; aa5 - PSHx: 15:10 ; partial hysterectomy; Cholecystectomy; Appendectomy; aa5 - Immunization history:: Adult Immunizations unknown. - Social history:: Smoking status: Patient denies any tobacco usage or history of. Screenin:00 Abuse screen: Denies threats or abuse. Nutritional screening: No deficits noted. tw2 Tuberculosis screening: No symptoms or risk factors identified. Fall Risk None identified. Assessment: 15:59 Reassessment: provider at bedside at this time. tw2 16:01 General: Appears in no apparent distress. slender, well groomed. Pain: Complains of tw2 pain in back of RIGHT heel. Neuro: Level of Consciousness is awake, alert, obeys commands, Oriented to person, place, time, situation. Cardiovascular: Patient's skin is warm and dry. Respiratory: Airway is patent Respiratory effort is even, unlabored, Respiratory pattern is regular, symmetrical. GI: No signs and/or symptoms were reported involving the gastrointestinal system. : No signs and/or symptoms were reported regarding the genitourinary system. EENT: No signs and/or symptoms were reported regarding the EENT system. Derm: wound noted to back of right heel with eschar note and redness noted, pt showed picture of same wound 10 days ago and today it appears smaller. Musculoskeletal: Range of motion: intact in all extremities. 16:28 Reassessment: Patient appears in no apparent distress at this time. No changes from tw2 previously documented assessment. Patient and/or family updated on plan of care and expected duration. Pain level reassessed. Patient is alert, oriented x 3, equal unlabored respirations, skin warm/dry/pink. 16:29 Reassessment: "oh reed franco had these medicines before i am just ready to go home". tw2 Vital Signs: 15:00 BP 116 / 87; Pulse 93; Resp 18 S; Temp 97.9(O); Pulse Ox 100% on R/A; Weight 49.9 kg aa5 (R); Height 5 ft. 4 in. (162.56 cm) (R); Pain 8/10; 16:28 BP 133 / 89; Pulse 72; Resp 17; Pulse Ox 99% on R/A; tw2 15:00 Body Mass Index 18.88 (49.90 kg, 162.56 cm) aa5 ED Course: 14:35 Patient arrived in ED. as 15:00 Arm band placed on. aa5 15:11 Triage completed. aa5 15:48 Bed in low position. Call light in reach. Pulse ox on. NIBP on. tw2 15:55 Ari Agee NP is PHCP. pm1 15:56 Chandana Nelson MD is Attending Physician. pm1 15:59 Jo Ann Weaver, RN is Primary Nurse. tw2 16:28 No provider procedures requiring assistance completed. Patient did not have IV access tw2 during this emergency room visit. Administered Medications: 16:25 Drug: [place] 5 mg-325 mg 1 tabs Route: PO; tw2 16:29 Follow up: Response: No adverse reaction; RASS: Alert and Calm (0) tw2 16:25 Drug: Ondansetron (Zofran) 4 mg Route: PO; tw2 16:29 Follow up: Response: No adverse reaction tw2 Outcome: 16:14 Discharge ordered by . pm1 16:28 Discharged to home ambulatory. tw2 16:28 Condition: stable 16:28 Discharge instructions given to patient, Instructed on discharge instructions, follow up and referral plans. no drinking with medication, no driving heavy equipment, medication usage, Demonstrated understanding of instructions, follow-up care, medications, Prescriptions given X 2. 16:30 Patient left the ED. tw2 Signatures: Myriam Hernandez Audri, RN RN aa5 Ari Agee NP SUPERVISOR [employer]ENGRAVING pm1 Jo Ann Weaver RN RN tw2
[2019-12-13] MEDS ORDERED: ONDANSETRON 4 MG (ODT) TAB ONE (16:34)
[2019-12-13] MEDS ORDERED: HYDROCODONE/APAP 5/325 MG TAB ONE (16:34)
[2019-12-16 09:53] VITALS: TEMP 97.9
[2019-12-16 09:54] VITALS: BP 133/89; O2SAT 99
== END 2019-12-13 16:30 | disposition home or self-care (01) ==
LOC: ER 14:33
DX: L97.419 Non-pressure chronic ulcer of right heel and midfoot with unspecified severity (principal); W57.XXXA Bitten or stung by nonvenomous insect and other nonvenomous arthropods, initial encounter; E11.40 Type 2 diabetes mellitus with diabetic neuropathy, unspecified; Z79.4 Long term (current) use of insulin; Z88.5 Allergy status to narcotic agent; Z88.8 Allergy status to other drugs, medicaments and biological substances
CPT/HCPCS: 99283

== ENCOUNTER 2020-01-04 14:25 | Emergency (ER) | payer OTHER ==
--- OUTSIDE RECORDS SUMMARY | 2020-01-04 14:31 | XMS REPORT | Clinical Summary ---
:1965 Author Organization [facility] Address [address] [place] [address] Care Team Providers Name Role Phone Denae [...] Not on file Results Not on fileafter 01/03/2019
--- OUTSIDE RECORDS SUMMARY | 2020-01-04 14:37 | XMS REPORT | Continuity of Care Document ---
:1965 Author Organization [facility] [employer] Care Team Providers Name Role Phone Playcez Unavailable Un available Problems Problem Status Onset Classification Date Comments Sourc e Date Reported Radiculopathy, 02/26/20 02/28/2017 [facility] cervical region 17 Hosp ital Hyperglycemia, 02/26/20 03/01/2017 [facility] unspecified 17 Hospital Fever, 02/26/20 03/01/2017 [facility] unspecified 17 Hospital Displaced 12/28/19 12/30/2016 [facility] unspecified 17 Hospital fracture of right lesser toe(s), initial encounter for closed fracture HURT TOES Active 12/28/[address] ABDOMINAL PAIN Active 02/07/20 [address] [place] EGD Active 02/05/20 [facility] 12 BLOOD SUGAR Active 11/28/19 [place] [...] [address] [place] BLEEDING ABD PAIN Active 01/06/20 [facility] 10 EAR PAIN Active 10/10/19 [facility] [place] UPPER ABDOMINAL Active 09/21/19 [facility] PAIN 10 [place] ABD PAIN, HIGH Active 08/16/19 [facility] SUGAR 10 [place] Abdominal pain Active Problem 02/19/2012 [facility], [place] Cellulitis Active Problem 02/19/2012 [facility], [place] Chest pain Active Problem 02/19/2012 [facility] [place] Hyperglycemia Active Problem 02/19/2012 [facility] [place] UTI - Urinary Active Problem 02/19/2012 tract infection [facility] [place] Diabetes mellitus Active Problem 03/01/2017 [facility] (disorder[facility] Restless legs Active Problem 03/01/2017 [...] G.I. No Longer Cocktail = Active 2016 [facility] antacid with Hospital simethicone 22.5 mL - lidocaine viscous 7.5 mL Zofran Notes: (Same Inactive as: Zofran) 2016 [facility] MEDICATION Hospital WASTE Product Size: 4 mg Product Wasted: ___ mg Zofran Notes: (Same Inactive as: Zofran) 2016 [facility]ICATION [facility] WASTE Product Size: 4 mg Product Wasted: ___ mg Morphine Notes: (Same Inactive as:MORPhine 2017 [facility] Sulfate) Hospital Lidocaine Notes: Inactive Hydrochloride 10 Preservative 2016 [facility] MG/ML Injectable free. (Same Ho spital Solution as: Xylocaine MPF) Insulin regular 60 units) Inactive WASTE: F/P - 2017 [facility] Black; E - Hospital Municipal Trash Bin Stable for 28 days at room temperature Expires in days from Date Sodium Chloride 2,000 mL, 1000 Inactive 0.9% (Bolus) IV ml/hr, Infuse 2017 [facility] Over: 2 hr, Hospital Route: IV, 2,000, Drug form: INJ, ONCE, Priority: STAT, Dosing Weight 49.545 kg, Start date: 02/25/17 20:22:00 [employer], Stop date: 02/25/17 20:22:00 [employer] ibuprofen 800 mg 800 mg = 1 [...] (Same No Longer as: Valium) Active 2016 [facility] Ketorolac 4 days No Longer MEDICATION Active 2016 [facility] WASTE Hospital Product Size: 30 mg Product Wasted: ___ mg Ciprofloxacin 500 500 mg = 1 Active MH [facility] Oral Tablet tab, PO, Q12H, 2017 [facility] [Cipro] for UTI, X 3 Hospital day, # 6 tab, 0 Refill(s), Pharmacy: [facility]/pharmacy #[id number] Humalog 100 4 unit, SUB-Q, Active units/mL TID-Before 2017 [facility] Meals, hold Hospital insulin injection if your blood sugar is less than 140 mg/dL., # 10 mL, 0 Refill(s), Pharmacy: [facility]/pharmacy #[id number] pantoprazole 40 40 mg = 1 tab, Active 01/26/ H [facility] Enteric Coated PO, Daily, # 2017 [facility] Tablet [Protonix] 30 tab, 0 Hosp ital Refill(s), Pharmacy: [facility]/pharmacy #[id number] Calcium Carbonate 500 mg = 1 Active 500 MG Chewable tab, PO, TID, 2017 [facility] Tablet # 6 tab, 0 Hospital Refill(s), Pharmacy: [facility]/pharmacy #[id number] Insulin Glargine 15 unit, Active 100 UNT/ML SUB-Q, Daily, 2016 [facility] Injectable # 10 mL, 0 Hospital Solution [Lantus] Refill(s), Pharmacy: [facility]/pharmacy #[id number] Calcium Gluconate Notes: WASTE: Inactive F/P - Sink; E 2016 [facility] - [facility] Trash Bin Calcium Carbonate Notes: (Same Inactive As: [facility]) 2017 [facility] Calcium Hospital Carbonate 500 mg = 200 mg elemental calcium Dose = mg calcium carbonate ( mg elemental calcium) Insulin Glargine Notes: Same as No Longer 100 UNT/ML Lantus Active 2016 [facility] Injectable Solostar PEN Hospital Solution [Lantus] Do not hold insulin without contacting prescriber "single patient use only" WASTE: F/P - Black; E - Municipal Trash Bin Stable for 28 days at room temperature. Expires in days from Date Requip Notes: (Same No Longer as: Requip) Active 2017 [facility] Lyrica Notes: (Same No Longer as: Lyrica) Active 2017 [facility] Calcium Carbonate Notes: (Same Inactive As: Tums) 2017 [facility] Calcium Hospital Carbonate 500 mg = 200 mg elemental calcium Dose = mg calcium carbonate ( mg elemental calcium) Protonix Notes: Tablet No Longer should not be Active 2017 [facility] chewed or Hospital crushed. (Same as: Protonix) Magnesium Oxide Notes: (Same No Longer H as: Mag-Ox Active 2017 [facility] 400) Magnesium Hospital oxide [id number] elemental magnesium Dose=____mg magnesium oxide (___mg elemental magnesium) Ketorolac 4 days No Longer MEDICATION Active 2017 [facility] WASTE Hospital Product Size: 30 mg Product Wasted: ___ mg Docusate Notes: (Same No Longer as: Colace) Active 2016 [place] (Do Not Crush) [facility] Insulin Glargine 50 units, No Longer 100 UNT/ML SUB-Q, Daily, Active 2016 [facility] Injectable 0 Refill(s) [facility] Solution [Lantus] ropinirole 2 MG 2 mg = 1 tab, Active Oral Tablet PO, Bedtime, 0 2016 [facility] [Requip] Refill(s) [facility] pregabalin 75 MG 75 mg = 1 cap, Active Oral Capsule PO, Bedtime, 0 2016 [facility] [Lyrica] Refill(s) [facility] Insulin Lispro 60 units) Inactive WASTE: F/P - 2017 [facility] Black; E - Hospital Municipal Trash Bin Stable for 28 days at room temperature. Expires in days from Date Ceftriaxone Notes: (Same No Longer As: Rocephin). Active 2017 [facility] Use with 100 Hospital mL NS and infuse over 30 min MEDICATION WASTE Product Size: 1000 mg Product Wasted: ___ mg Hydralazine Notes: (Same No Longer as: Active 2016 [facility] Apresoline) [facility] Push over 5 minutes Glucagon 1 mg, Route: No Longer IM, Drug form: Active 2016 [facility] PDR/INJ, PRN, Hospital Dosing Weight 51.449, kg, PRN Blood Glucose Results, Start date: 01/25/17 1:35:00 CDT, Duration: 30 day, Stop date: 02/24/17 0:34:00 [employer] Insulin Lispro 60 units) No Longer WASTE: F/P - Active 2016 [facility] Black; E - Hospital Municipal Trash Bin Stable for 28 days at room temperature. Expires in days from Date Dextrose 50% 25 gm, 50 mL, No Longer Syringe Route: IVP, Active 2016 [facility] Drug Form: Hospital INJ, Dosing Weight 51.449, kg, PRN, PRN Blood Glucose Results, Start date: 01/25/17 1:35:00 CDT, Duration: 30 day, Stop date: 02/24/17 0:34:00 [employer] Acetaminophen Notes: Do not No Longer exceed 4 Active 2017 [facility] gm/day. (Same Hospital as: Tylenol) Acetaminophen 325 Notes: (Same Inactive MG / Hydrocodone as: [place] 2017 [facility] Bitartrate 5 MG 325/5) Do not H ospital Oral Tablet exceed 4gm/day of acetaminophen. Ondansetron Notes: (Same No Longer as: Zofran) Active 2017 [facility] MEDICATION Hospital WASTE Product Size: 4 mg Product Wasted: ___ mg sodium chloride 1,000 mL, No Longer 0.9% 1000 ml INJ Rate: 75 Active 2017 [facility] [facility] 1,000 mL ml/hr, Infuse Hospital over: 13.3 hr, Route: IV, Dosing Weight 51.449 kg, Total Volume: 1,000, Start date: 01/25/17 1:32:00 CDT, Stop date: 02/24/17 1:31:00 [employer] Saline Flush 0.9% Notes: (Same No Longer as: BD Active 2016 [facility] Posiflush) Hospital Ketorolac 15 mg, Route: Inactive IV, ONCE, 2016 [facility] Dosing Weight Hospital 52.273, kg, Start date: 01/25/17 0:00:00 CDT, Stop date: 01/25/17 0:00:00 CDT Famotidine 20 mg, Route: Inactive IVP, ONCE, 2017 [facility] Dosing Weight Hospital 52.273, kg, Priority: STAT, [...] 4 mg, Route: Inactive IVP, Drug 2017 [facility] form: INJ, Hospital ONCE, Dosing Weight 52.273, kg, Priority: STAT, Start date: 01/24/17 22:07:00 CDT, Stop date: 01/24/17 22:07:00 CDT Morphine Notes: (Same Inactive as:MORPhine 2017 [facility] Sulfate) Hospital Acetaminophen 300 1 - 2 tab, PO, No Longer 12/27 MG / Codeine Q4H, PRN Pain, Active 2016 [facility] Phosphate 30 MG X 2 day, # 30 Ho spital Oral Tablet tab, 0 [Tylenol with Refill(s) Codeine #3] Acetaminophen 325 Notes: (Same Inactive MG / Hydrocodone as: [place] 2016 [facility] Bitartrate 5 MG 325/5) Do not H ospital Oral Tablet exceed 4gm/day [Derby 5/325] of acetaminophen. Sodium Chloride 500 mL, Rate: IV No Longer [facility] Sugar 0.9% (Bolus) IV 500 ml/hr, Active 2011 [facility] 500 mL Infuse over: 1 hr, Route: [...] ketorolac 30 mg, Route: IVP No Longer [facility] Sug ar IVP, Drug Active 2011 [place] form: INJ, ONCE, Dosing Weight 50, kg, Priority: STAT, Start date: 11/28/11 21:51:00, Stop date: 11/28/11 21:51:00 ondansetron 4 mg, Route: IVP No Longer [facility] Hein gar IVP, ONCE, Active 2011 [facility] Dosing Weight 50, kg, Priority: STAT, Start date: 11/28/11 21:51:00, Stop date: 11/28/11 21:51:00 Sodium Chloride 1,000 mL, IVPB No Longer [facility] S ugar 0.9% (Bolus) IV Rate: 1,000 Active 2011 [facility] 1,000 mL ml/hr, Infuse over: 1 hr, Route: IVPB, kg, Total Volume: 1,000, Bolus Dose, Priority: STAT, Start date: 11/28/11 21:51:00, Duration: 1 doses or times, Stop date: 11/28/11 22:50:00 Saline Flush 0.9% 5 ml, Route: IVP No Longer [facility] Sugar IVP, Drug Active 2011 [place] Form: INJ, kg, PRN, PRN Line Flush, Start date: 11/28/11 21:51:00, Duration: 30 day, Stop date: 12/28/11 21:50:00 [place] 5/325 oral 1-2 tab, PO, PO Active [facility] Sugar tablet Q4-6H, PRN, 2011 tab, Pain, Substitution Allowed, Soft Stop Zofran ODT 4 mg 4 mg, 1 tab, PO Active [facility] Sugar oral tablet, PO, TID, PRN, 2011 disintegrating 10 tab, Nausea and Vomiting, Substitution Allowed morphine Sulfate 4 mg, 2 mL, IVP No Longer [facility] Route: IVP, Active 2011 [facility] Drug form: INJ, ONCE, Priority: STAT, Start date: 10/25/11 0:22:00, Stop date: 10/25/11 0:22:00 diphenhydrAMINE 25 mg, Route: IVP No Longer [place] IVP, ONCE, Active 2011 Priority: STAT, Start date: 10/25/11 0:06:00, Stop date: 10/25/11 0:06:00 morphine Sulfate 4 mg, 2 mL, IVP No Longer [facility] 10/24/ M H [facility] Route: IVP, Active 2011 [facility] Drug form: INJ, ONCE, Priority: STAT, Start [...] Longer [place] Sugar IVP, Drug Active 2011 [facility] Form: INJ, PRN, PRN Line Flush, Start [...] regular 5 unit, 0.05 IVP No Longer [facility] Sugar mL, Route: Active 2011 [facility] IVP, Drug form: SOLN, ONCE, Priority: STAT, Start date: 05/23/11 1:10:00, Stop date: 05/23/11 1:10:00 Visipaque 32,000 mg, 100 IV Active [facility] Suga r mL, Route: IV, 2011 [facility] Drug form: INJ, ONCE, Start date: 05/22/11 23:47:00, Stop date: 05/22/11 23:47:00 Insulin regular 5 unit, 0.05 SUB-Q No Longer [facility] Sugar mL, Route: Active 2011 [facility] SUB-Q, Drug form: SOLN, ONCE, Priority: STAT, Start date: 05/22/11 23:36:00, Stop date: 05/22/11 23:36:00 morphine Sulfate 2 mg, 0.4 mL, IVP No Longer [facility] Sugar Route: IVP, Active 2011 [facility] Drug form: INJ, ONCE, Priority: STAT, Start date: 05/22/11 23:04:00, Stop date: 05/22/11 23:04:00 ondansetron 4 mg, 2 mL, IVP No Longer [facility] Sug ar Route: IVP, Active 2011 [facility] Drug form: INJ, ONCE, Priority: STAT, Start date: 05/22/11 23:04:00, Stop date: 05/22/11 23:04:00 Sodium Chloride 500 mL, Rate: IV No Longer [facility] Sugar 0.9% (Bolus) IV 1,000 ml/hr, Active 2011 [facility] 500 mL Infuse over: 0.5 hr, Route: IV, Total Volume: 500, Bolus dose, Priority: STAT, Start date: 05/22/11 23:04:00, Duration: 1 doses or times, Stop date: 05/22/11 23:33:00 Saline Flush 0.9% 5 ml, Route: IVP No Longer [facility] Sugar IVP, Drug Active 2011 [facility] Form: INJ, PRN, PRN Line Flush, Start date: 05/22/11 23:04:00, Duration: 24 hr, Stop date: 05/23/11 23:03:00 Pyridium 200 mg 200 mg, 1 tab, PO Active [facility] Sugar oral tablet PO, TID, 9 2011 [facility] tab, Substitution Allowed Cipro 500 mg oral 500 mg, 1 tab, PO Active [facility] Sugar tablet PO, Q12H, 28 2011 [facility] tab, Substitution Allowed, TAB Pyridium 200 mg, 2 tab, PO No Longer [facility] Sug ar Route: PO, Active 2011 [facility] Drug form: TAB, ONCE, Priority: STAT, Start date: 05/07/11 20:03:00, Stop date: 05/07/11 20:03:00 Cipro 500 mg, 2 tab, PO No Longer [facility] S[place] r Route: PO, Active 2011 [facility] Drug form: TAB, ONCE, Priority: STAT, Start date: 05/07/11 20:03:00, Stop date: 05/07/11 20:03:00 Cipro 500 mg oral 500 mg, 1 tab, PO Active [facility] Sugar tablet PO, BID, 20 2011 [facility] tab, Substitution Allowed Zofran ODT 4 mg 4 mg, 1 tab, PO Active [facility] oral tablet, PO, TID, PRN, 2011 disintegrating 10 tab, Nausea and Vomiting, Substitution Allowed [place] 10/325 oral 1 tab, PO, PO Active [facility] Sugar tablet Q4-6H, PRN, 24 2011 [facility] tab, as needed for pain, Substitution Allowed, Maintenance hydromorphone 1 mg, 0.5 mL, IVP No Longer [facility] Sugar Route: IVP, Active 2011 [facility] Drug form: INJ, ONCE, Priority: STAT, Start date: 04/19/11 23:38:00, Stop date: 04/19/11 23:38:00 Insulin regular 10 unit, 0.1 IVP No Longer [facility] mL, Route: Active 2011 [facility] IVP, Drug form: SOLN, ONCE, Priority: STAT, [...] magnesium citrate 150 ml, PO, PO Active [facility] 03/26[facility] Sugar 8.85% oral liquid ONCE, 300 ml, 2010 [place] Substitution Allowed, Maintenance, LIQ MiraLax oral 17 gm, PO, PO Active [facility] 03/26[facility] Sugar powder for Daily, 255 gm, 2010 [place] reconstitution Substitution Allowed, PDR/REC Phenergan 25 mg 25 mg, 1 tab, PO Active [facility] Sugar oral tablet PO, Q6H, PRN, 2010 [place] 15 tab, Nausea, Substitution Allowed Vicodin 5/500 1 tab, PO, PO Active [facility] Suga r oral tablet Q4-6H, PRN, 2010 tab, for Pain, Substitution Allowed, Maintenance Sodium Chloride 1,000 mL, IV No Longer [facility] S ugar 0.9% (Bolus) IV Rate: 1,000 Active 2010 1,000 mL ml/hr, Infuse over: 1 hr, Route: IV, Total Volume: 1,000, Bolus Dose, Priority: STAT, Start date: 03/25/11 21:24:00, Duration: 1 doses or times, Stop date: 03/25/11 22:23:00 Insulin regular 10 unit, 0.1 IVP No Longer [facility] 03/26/ H Sugar mL, Route: Active 2010 IVP, Drug form: SOLN, ONCE, Priority: STAT, Start date: 03/25/11 21:16:00, Stop date: 03/25/11 21:16:00 Omnipaque 300 30,000 mg, 100 IV Active [facility] [place] mL, Route: IV, 2010 Drug form: SOLN, ONCE, Start date: 03/25/11 21:15:00, Stop date: 03/25/11 21:15:00 Saline Flush 0.9% 5 ml, Route: IVP No Longer [facility] Sugar IVP, Drug Active 2010 Form: INJ, PRN, PRN Line Flush, Start date: 03/25/11 20:19:00, Duration: 30 day, Stop date: 04/24/11 20:18:00 ondansetron 4 mg, 2 mL, IVP No Longer [facility] Sug ar Route: IVP, Active 2010 Drug form: INJ, ONCE, Priority: STAT, Start date: 03/25/11 20:19:00, Stop date: 03/25/11 20:19:00 morphine Sulfate 4 mg, 0.8 mL, IVP No Longer [place] [facility] Route: IVP, Active 2010 Drug form: [...] [place] Route: PO, Active 2010 [facility] Drug form: TAB, [id number], Start date: 02/11/11 11:00:00, Duration: 30 day, Stop date: 03/12/11 23:00:00 magnesium oxide 400 mg, 1 tab, PO No Longer [place] Route: PO, Active 2010 [facility] Drug form: TAB, Daily, Start date: 02/11/11 9:00:00, Duration: 30 day, Stop date: 03/12/11 9:00:00 Lantus 70 unit, SUB-Q No Longer [place] [facility] Route: SUB-Q, Active 2010 [facility] Drug form: SOLN, Daily, Start date: 02/11/11 9:00:00, Duration: 30 day, Stop date: 03/12/11 9:00:00 Levemir FlexPen 70 unit, 0.7 SUB-Q No Longer [facility] mL, Route: Active 2010 SUB-Q, Drug form: INJ, Daily, Start date: 02/11/11 9:00:00, Duration: 30 day, Stop date: 03/12/11 9:00:00 Saline Flush 0.9% 5 ml, Route: IVP No Longer [place] IVP, Drug Active 2010 [facility] Form: INJ, Q12H, Start date: 02/11/11 9:00:00, [...] Route: PO, Active 2010 Drug form: TAB, [id number], Start date: 02/11/11 3:00:00, Duration: 30 day, [...] Sliding Scale - mL, Route: Active 2010 [facility] Low SUB-Q, Drug form: SOLN, Sliding Scale, PRN Blood Glucose Results, Start date: 02/11/11 2:05:00, Duration: 30 day, Stop date: 03/13/11 1:04:00 glucagon 1 mg, Route: IM No Longer [place] IM, Drug form: Active 2010 [facility] PDR/INJ, PRN, PRN Blood Glucose Results, Start date: 02/11/11 2:05:00, Duration: 30 day, Stop date: 03/13/11 1:04:00 Dextrose 50% 25 gm, 50 ml, IVP No Longer [place] [facility] Syringe Route: IVP, Active 2010 [facility] Drug Form: INJ, PRN, PRN Blood Glucose Results, Start date: 02/11/11 2:05:00, Duration: 30 day, Stop date: 03/13/11 1:04:00 Saline Flush 0.9% 5 ml, Route: IVP No Longer [facility] [facility] IVP, Drug Active 2010 [facility] Form: INJ, PRN, PRN Line Flush, Start date: 02/11/11 2:05:00, Duration: 30 day, Stop date: 03/13/11 1:04:00 nitroglycerin SL 0.4 mg, 1 tab, SL No Longer [place] [facility] Tab Route: SL, Active 2010 [facility] Drug form: TAB, Q5Min, PRN Chest Pain, Start date: 02/11/11 2:05:00, Duration: 3 doses or times, Stop date: Limited # of times morphine Sulfate 2 mg, 0.4 mL, IVP No Longer [place] [facility] Route: IVP, Active 2010 [facility] Drug form: INJ, Q15Min, PRN Chest Pain, Start date: 02/11/11 2:05:00, Duration: 2 doses or times, Stop date: Limited # of times acetaminophen 650 mg, 2 tab, PO No Longer [facility] Sugar Route: PO, Active 2010 [facility] Drug form: TAB, Q4H, PRN Headache, Start date: 02/11/11 2:05:00, Duration: 30 day, Stop date: 03/13/11 2:04:00 diphenhydrAMINE 25 mg, 1 tab, PO No Longer [place] [facility] Route: PO, Active 2010 [facility] Drug form: TAB, Bedtime, PRN Insomnia, Start [...] [place] Hein gar Route: PO, Active 2010 [facility] Drug form: TAB, Q8H, PRN Nausea & Vomiting, Start date: 02/11/11 2:05:00, Duration: 30 day, Stop date: 03/13/11 2:04:00 temazepam 15 mg, 1 cap, PO No Longer [place] Sug ar Route: PO, Active 2010 [facility] Drug form: CAP, Bedtime, PRN Insomnia, Start date: 02/11/11 2:05:00, Duration: 30 day, Stop date: 03/13/11 2:04:00 aspirin 325 mg 325 mg, 1 tab, PO No Longer [place] [facility] tablet Route: PO, Active 2010 [facility] Drug form: TAB, ONCE, Start date: 02/11/11 2:05:00, Stop date: 02/11/11 2:05:00 morphine Sulfate 2 mg, 0.4 mL, IVP No Longer [place] 02/11 [place] Route: IVP, Active 2010 [facility] Drug form: INJ, ONCE, Priority: STAT, Start date: 02/11/11 0:37:00, Stop date: 02/11/11 0:37:00 Visipaque 48,000 mg, 150 IV No Longer [place] Sugar mL, Route: IV, Active 2010 [facility] Drug form: INJ, ONCE, Start date: 02/10/11 [...] H Sugar ointment Route: TOP, Active 2010 [facility] Drug Form: OINT, ONCE, STAT, Start date: 02/10/11 21:47:00, Stop date: 02/10/11 21:47:00 nitroglycerin 0.4 mg, 1 tab, SL No Longer [place] Sugar Route: SL, Active 2010 [facility] Drug form: TAB, Q5Min, PRN Chest Pain, (Hold if SBP < = 90 mmHg or if < = 100mmHg with symptomatic dizziness), Start date: 02/10/11 21:47:00, Duration: 3 doses or times, Stop date: Limited # of times morphine Sulfate 2 mg, Route: IVP No Longer [place] Sugar IVP, ONCE, Active 2010 [facility] Priority: STAT, Start date: 02/10/11 21:47:00, Stop date: 02/10/11 21:47:00 Saline Flush 0.9% 5 ml, Route: IVP No Longer Rowan 02/11 [place] IVP, PRN, PRN Active 2010 [facility] Line Flush, Start date: 02/10/11 21:47:00, Duration: 30 day, Stop date: 03/12/11 20:46:00 aspirin 325 mg 325 mg, 1 tab, PO No Longer [facility] Sugar tablet, enteric Route: PO, Active 2010 [facility] coated Drug form: ECTAB, Daily, Start date: 01/16/11 9:00:00, Duration: 30 day, Stop date: 02/14/11 9:00:00 Requip 1 mg, 1 tab, PO No Longer [place] Route: PO, Active 2010 [facility] Drug form: TAB, Bedtime, Start date: 01/15/11 21:00:00, Duration: 30 day, Stop date: 02/13/11 21:00:00 Nitrostat 0.4 mg 1 tab, SL, SL Active [facility] S ug[place] sublingual tablet Q5Min, PRN, [address] [place] 100 tab, Chest Pain, Substitution Allowed metoprolol 25 mg 12.5 mg, PO, PO Active [facility] Sugar oral tablet Q12H, 30 tab, 2010 Substitution Allowed, TAB aspirin 325 mg 9,750 mg, 30 PO Active [facility] S ugar tablet, enteric tab, PO, 2010 coated Daily, 30 tab, Substitution Allowed, ECTAB metoprolol 12.5 mg, 0.5 PO No Longer [place] Sug ar tab, Route: Active 2010 PO, Drug form: TAB, Q12H, Priority: NOW, Start date: 01/15/11 10:36:00, Duration: 30 day, Stop date: 02/14/11 9:00:00 Fioricet oral 1 tab, PO, PO Active [facility] 01/15[facility] Suga r tablet Q4H, PRN, 2010 tab, Headache, Substitution Allowed, Maintenance, TAB Fioricet 1 tab, Route: PO No Longer [facility] 01/15[facility] Suga r PO, Drug Form: Active 2010 TAB, Q4H, PRN Headache, Start date: 01/15/11 9:15:00, Duration: 30 day, Stop date: 02/14/11 9:14:00 aspirin 81 mg 81 mg, 1 tab, PO No Longer [facility] Sugar tablet, enteric Route: PO, Active 2010 coated Drug form: ECTAB, Daily, Start date: 01/15/11 9:00:00, Duration: 30 day, Stop date: 02/13/11 9:00:00 Requip 1 mg oral 1 mg, 1 tab, PO Active Sugar tablet PO, Bedtime, 2010 Substitution Allowed ibuprofen 400 mg 400 mg, 1 tab, PO No Longer [facility] 01/15[facility] Sugar oral tablet Route: PO, Active 2010 Drug form: TAB, Q8H, Start date: 01/15/11 0:00:00, Duration: 30 day, Stop date: 02/13/11 16:00:00 Saline Flush 0.9% 5 ml, Route: IVP No Longer [facility] 01/15[facility] Sugar IVP, Drug Active 2010 Form: INJ, Q12H, Start date: 01/14/11 21:00:00, Duration: 30 day, Stop date: 02/13/11 9:00:00 Levemir FlexPen 70 unit, 0.7 SUB-Q No Longer [place] 01/15/ H Sugar mL, Route: Active 2010 [facility] SUB-Q, Drug form: INJ, Bedtime, Start date: 01/14/11 21:00:00, Duration: 30 day, Stop date: 02/12/11 21:00:00 Lantus 70 unit, SUB-Q No Longer [place] Route: SUB-Q, Active 2010 [facility] Bedtime, Start date: 01/14/11 21:00:00, Duration: 30 day, Stop date: 02/12/11 21:00:00 glucagon 1 mg, Route: IM No Longer [place] Sugar IM, Drug form: Active 2010 [facility] PDR/INJ, PRN, PRN Blood Glucose Results, Start date: 01/14/11 19:22:00, Duration: 30 day, Stop date: 02/13/11 19:21:00 Insulin (Novolog) 6 unit, 0.06 SUB-Q No Longer [place] Sugar Sliding Scale - mL, Route: Active 2010 [facility] Very High SUB-Q, Drug form: SOLN, Sliding [...] Longer [place] Sugar IVP, Drug Active 2010 [facility] Form: INJ, PRN, PRN Line Flush, Start [...] 400 mg 1 tab, PO, PO Active [facility] S ugar oral tablet Q4H, PRN, 2010 tab, Pain, Substitution Allowed acetaminophen-hyd 1 tab, PO, PO Active [facility] rocodone 500 mg-5 Q4-6H, PRN, 2010 [...] type Reported Ritalin Assertion Drug Active allergy [facility] Immunizations No Data Provided for This Section Results Order Name Results Value Reference Date Interpretation Comments [facility] Range BACTERIAL Strep Negative Negative 02/26 [facility] - SEROLOGY pneumoniae (02/25/17 9:02 PM) /2016 Hospital Ag BACTERIAL Source Strep Cerebral 02/26 [facility] Spinal /2016 Hospital Fluid BODY Tube Num CSF 1 02/26 [facility] FLUIDS /2016 Hospital BODY Clarity CSF Clear Clear 02/26 [facility] FLUIDS (02/25/17 9:02 PM) /2016 [facility] BODY Color CSF Colorless Colorless 02/26 [facility] FLUIDS (02/25/17 9:02 PM) /2016 [facility] BODY Supernat CSF Colorless Colorless 02/26 [facility] FLUIDS (02/25/17 9:02 PM) /2016 [facility] BODY WBC CSF 2 0 - 53 02/26 [facility] FLUIDS /2016 Hospital BODY RBC CSF 1 0 - 03 02/26 [facility] FLUIDS /2016 Hospital BODY RBC CSF 1 0 - 03 02/26 [facility] FLUIDS /2017 Hospital BODY WBC CSF 2 0 - 53 02/26 [facility] FLUIDS /2016 Hospital BODY Supernat CSF Colorless Colorless 02/26 [facility] FLUIDS (02/25/17 9:02 PM) /2016 [facility] BODY Clarity CSF Clear Clear 02/26 [facility] FLUIDS (02/25/17 9:02 PM) /2016 [facility] BODY Tube Num CSF 4 02/26 [facility] FLUIDS /2016 Hospital BODY Color CSF Colorless Colorless 02/26 [facility] FLUIDS (02/25/17 9:02 PM) /2016 [facility] BODY Glucose CSF 219 45 - 80 02/26 [facility] FLUIDS Comment: Hospital Critical Result(s) called to Charlotte Hodge at _02/25/2017 21:45 bybz_. Read back OK.

NOTE: RESULTS autoverfied BODY Protein CSF 55 15 - 45 02/26 [facility] FLUIDS /2016 Hospital FUNGAL - Crypto Ag Negative Negative 02/26 [facility] SEROLOGY CSF (02/25/17 9:02 PM) /2016 [facility]osp [facility] IMMUNOLOGY VDRL Scr CSF Non Reactive Non 02/26 [facility] (02/25/17 9:02 PM) Reactive /2016 Hosp ital [...] curve analysis. MOLECULAR Source HSV Cerebral 02/26 [facility] DIAGNOSTIC Spinal /2016 Hospital Fluid VIRAL - [facility]/17 9:02 PM[facility] CHEM PANEL A/G Ratio 0.9 0.7 - 1.6 02/26 [facility] CHEM PANEL B/C Ratio 23 6 - 25 02/26 [facility] CHEM PANEL Globulin 4.3 2.7 - 4.2 02/26 [facility] CHEM PANEL AGAP 11.3 10.0 - 02/26 [facility] 20.0 [facility] CHEM PANEL eGFR 101 02/26 [facility] Comment: The Hospital eGFR is calculated using [...] PANEL BUN 16 7 - 22 02/26 [facility] CHEM PANEL ALANINE 17 0 - 65 02/26 [facility] AMINOTRANSFE Hospital RASE CHEM PANEL Total 8.2 6.4 - 8.4 02/26 [facility] CHEM PANEL Potassium 4.3 3.5 - 5.1 02/26 [facility] /2016 [facility] CHEM PANEL Sodium Lvl 130 135 - 145 02/26 [facility] /2016 [facility] CHEM PANEL Creatinine 0.70 0.50 - 02/26 [facility] Lvl 1.40 /2016 Hospital CHEM PANEL Glucose Lvl 340 70 - 99 02/26 [facility] /2016 [facility] CHEM PANEL Calcium Lvl 8.9 8.5 - 10.5 02/26 [facility] /2017 [facility] CHEM PANEL Chloride Lvl 97 95 - 109 02/26 [facility] /2016 [facility] CHEM PANEL CO2 26 24 - 32 02/26 [facility] /2017 Hospital CHEM PANEL Alk Phos 158 39 - 136 02/26 [facility] /2017 Hospital CHEM PANEL ASPARTATE 16 0 - 37 02/26 [facility] TRANSAMINASE Hospital CHEM PANEL Albumin Lvl 3.9 3.5 - 5.0 02/26 [facility] /2016 [facility] CHEM PANEL Lactic Acid 1.8 0.5 - 2.2 02/26 [facility] Lvl /2016 Hospital HEMATOLOGY Platelet 305 133 - 450 02/26 [facility] /2017 Hospital HEMATOLOGY MCV 82.2 80.0 - 02/26 [facility] 98.0 /2016 Hospital HEMATOLOGY Hct 37.1 36.0 - 02/26 [facility] 48.0 /2016 Hospital HEMATOLOGY MPV 7.4 7.4 - 10.4 02/26 [facility] /2017 Hospital HEMATOLOGY RDW 14.1 11.5 - 02/26 [facility] 14.5 /2016 Hospital HEMATOLOGY MCH 27.6 27.0 - 02/26 [facility] 31.0 /2016 Hospital HEMATOLOGY MCHC 33.6 32.0 - 02/26 [facility] 36.0 /2017 Hospital HEMATOLOGY RBC X 10x6 4.52 4.20 - 02/26 [facility] 5.40 /2016 Hospital HEMATOLOGY Hgb 12.5 12.0 - 02/26 [facility] 16.0 /2016 Hospital HEMATOLOGY WBC X 10x3 [...] Hospital HEMATOLOGY Segs 53.4 45.0 - 02/26 [facility] 75.0 /2016 Hospital HEMATOLOGY Lymphocytes 39.1 20.0 [...] AND UA 0.2 0.1 - 1.0 02/26 [facility] STOOL Urobilinogen /2016 Hospital URINE AND UA Nitrite Negative Negative 02/26 [facility] (02/25/17 7:42 PM) [facility] URINE AND UA Bili Negative Negative 02/26 [facility] STOOL *NA* /2016 Hospital (02/25/17 7:42 PM) URINE AND UA Ketones Negative Negative 02/26 [facility] *NA* /2016 [facility] (02/25/17 7:42 PM) URINE AND UA Bacteria Many /HPF None Seen 02/26 [facility] /HPF /2016 Hospital URINE AND UA WBC 0-2 /HPF None Seen 02/26 [facility] STOOL /HPF /2016 Hospital URINE AND UA RBC 0-2 /HPF 0 - 2 02/26 [facility] STOOL /2016 Hospital URINE AND UA Leuk Est Negative Negative 02/26 [facility] (02/25/17 7:42 PM) /2016 [facility] URINE AND UA Sq Epi Few /LPF Few /LPF 02/26 [facility] STOOL Hospital URINE AND UA Blood Negative Negative 02/26 [facility] STOOL (02/25/17 7:42 PM) [facility] URINE AND UA Glucose >=1000 Negative 02/26 [facility] STOOL mg/dL mg/dL /2016 Hospital URINE AND UA Protein Negative Negative 02/26 [facility] (02/25/17 7:42 PM) [facility]pi [facility] URINE AND UA pH 6.0 5.0 - 8.0 02/26 [facility] STOOL /2016 Hospital URINE AND UA Spec Grav 1.010 <=1.030 02/26 [facility] URINE AND UA Color Yellow Yellow 02/26 [facility] STOOL *NA* /2016 Hospital (02/25/17 7:42 PM) URINE AND UA Turbidity Slight Cloudy Clear 02/26 [facility] STOOL (02/25/17 7:42 PM) [facility]pi [facility] VIRAL - Influ B Negative Negative 02/26 [facility] SEROLOGY (02/25/17 7:42 PM) [facility]osp [facility] VIRAL - Influ A Negative Negative 02/26 [facility] SEROLOGY (02/25/17 7:42 PM) [facility]osp [facility] CHEM PANEL eGFR 121 01/26 [facility] Comment: The Hospital eGFR is calculated using [...] Alk Phos 165 39 - 136 01/26 [facility] CHEM PANEL B/C Ratio 12 6 - 25 01/26 [facility] CHEM PANEL Globulin 3.3 2.7 - 4.2 01/26 [facility] CHEM PANEL Albumin Lvl 2.4 3.5 - 5.0 01/26 [facility] CHEM PANEL Total 5.7 6.4 - 8.4 01/26 [facility] CHEM PANEL AGAP 9.7 10.0 - 01/26 [facility] 20.0 [facility] CHEM PANEL Glucose Lvl 261 70 - 99 01/26 [facility] CHEM PANEL Calcium Lvl 7.4 8.5 - 10.5 01/26 [facility] CHEM PANEL A/G Ratio 0.7 0.7 - 1.6 01/26 [facility] CHEM PANEL Creatinine 0.40 0.50 - 01/26 [facility] Lvl 1.40 [facility] CHEM PANEL BUN 5 7 - 22 01/26 [facility] 2017 Hospital CHEM PANEL ASPARTATE 37 0 - 37 01/26 [facility] TRANSAMINASE Hospital CHEM PANEL ALANINE 44 0 - 65 01/26 [facility] AMINOTRANSFE [facility] RASE CHEM PANEL Potassium 3.7 3.5 - 5.1 01/26 [facility] CHEM PANEL Sodium Lvl 137 135 - 145 01/26 [facility] CHEM PANEL CO2 25 24 - 32 10 [facility] CHEM PANEL Chloride Lvl 106 95 - 109 01/26 [facility] CARDIAC Troponin-I <0.02 0.00 - 01/25 [facility] ENZYMES 0.40 [facility] PARATHYROI Ca Norm WB 0.99 1.05 - 01/25 [facility] D PROFILE 1. [facility] PARATHYROI Ca Ion WB 1.01 1.05 - 01/25 [facility] D PROFILE 1. Hospital CHEM PANEL Albumin Lvl 2.6 3.5 - 5.0 01/25 [facility] CHEM PANEL eGFR 112 01/25 [facility] Comment: The Hospital eGFR is calculated using [...] CHEM PANEL Creatinine 0.50 0.50 - 01/25 [facility] Lvl 1.40 [facility] CHEM PANEL Sodium Lvl 135 135 - 145 01/25 [facility] CHEM PANEL Potassium 3.6 3.5 - 5.1 01/25 [facility] CHEM PANEL CO2 25 24 - 32 01/25 [facility] CHEM PANEL Chloride Lvl 105 95 - 109 01/25 [facility] CHEM PANEL AGAP 8.6 10.0 - 01/25 [facility] 20.0 [facility] CHEM PANEL Calcium Lvl 6.9 8.5 - 10.5 01/25 [facility] Comment: Hospital Critical Result(s) called to uyen martinez_ at _01/25/2017 15:47 by_bz. Read back OK. CHEM PANEL Glucose Lvl 263 70 - 99 01/25 [facility] CHEM PANEL BUN 8 7 - 22 01/25 [facility] CHEM PANEL Phosphorus 2.7 2.5 - 4.5 01/25 [facility] CHEM PANEL eGFR 106 01/25 [facility] Comment: The Hospital eGFR is calculated using [...] CHEM PANEL Creatinine 0.60 0.50 - 10 [facility] Lvl 1.40 [facility] CHEM PANEL BUN 9 7 - 22 01/25 [facility] CHEM PANEL Glucose Lvl 405 70 - 99 01/25 [facility] Comment: Hospital Critical Result(s) called to Dung Mullins at 01/25/2017 04:39 by CV. Read back OK. CHEM PANEL AGAP 12.5 10.0 - 01/25 [facility] 20.0 [facility] CHEM PANEL Potassium 3.5 3.5 - 5.1 01/25 [facility] CHEM PANEL Chloride Lvl 102 95 - 109 01/25 [facility] CHEM PANEL CO2 23 24 - 32 01/25 [facility] CHEM PANEL Calcium Lvl 7.1 8.5 - 10.5 01/25 [facility] CHEM PANEL Sodium Lvl 134 135 - 145 01/25 [facility] CHEM PANEL Magnesium 1.7 1.8 - 2.4 01/25 [facility] HEMATOLOGY MPV 7.4 7.4 - 10.4 01/25 [facility] HEMATOLOGY RDW 13.6 11.5 - 01/25 [facility] 14.5 [facility] HEMATOLOGY Platelet 244 133 - 450 01/25 [facility] 2017 Hospital HEMATOLOGY MCHC 33.4 32.0 - 01/25 [facility] 36.0 [facility] HEMATOLOGY MCV 82.5 80.0 - 01/25 [facility] 98.0 [facility] HEMATOLOGY MCH 27.6 27.0 - 01/25 [facility] 31.0 [facility] HEMATOLOGY Hgb 10.7 12.0 - 01/25 [facility] 16.0 [facility] HEMATOLOGY Hct 32.0 36.0 - 01/25 [facility] 48.0 [facility] HEMATOLOGY WBC X 10x3 5.5 3.7 - 10.4 01/25 [facility] HEMATOLOGY RBC X 10x6 3.88 4.20 - 01/25 [facility] 5.40 [facility] HEMATOLOGY Monocytes 7.2 2.0 - [...] Hospital HEMATOLOGY Segs 55.0 45.0 - 01/25 [facility] 75.0 Hospital SPECIAL Hgb A1C >16.0 % <=5.6 % 01/25 [facility] CHEMISTRY Hospital URINE AND UA Sq Epi Occasional Few /LPF 01/25 [facility] STOOL /LPF /2016 Hospital URINE AND UA WBC 11-20 /HPF None Seen 01/25 [facility] /HPF /2016 Hospital URINE AND UA Bacteria Moderate None Seen 01/25 [facility] ST[facility]OL /HPF /HPF /2016 Hospital URINE AND UA RBC 0-2 /HPF 0 - 2 01/25 [facility] STOOL /2016 Hospital URINE AND UA Leuk Est Negative Negative 01/25 [facility] (01/24/17 11:54 PM) /2016 [facility]osp ital URINE AND UA Nitrite Positive Negative 01/25 [facility] *ABN* /2016 Hospital (01/24/17 11:54 PM) URINE AND UA Blood Negative Negative 01/25 [facility] STOOL (01/24/17 11:54 PM) [facility]osp ital URINE AND UA Bili Negative Negative 01/25 [facility] STOOL *NA* /2016 Hospital (01/24/17 11:54 PM) URINE AND UA Glucose >=1000 Negative 01/25 [facility] STOOL mg/dL mg/dL /2016 Hospital URINE AND UA Protein Negative Negative 01/25 [facility] (01/24/17 11:54 PM) [facility]osp ital URINE AND UA 0.2 0.1 - 1.0 01/25 [facility] STOOL Urobilinogen /2016 Hospital URINE AND UA Ketones Negative Negative 01/25 [facility] *NA* /2016 Hospital (01/24/17 11:54 PM) URINE AND UA pH 5.5 5.0 - 8.0 01/25 [facility] STOOL /2016 Hospital URINE AND UA Spec Grav <=1.005 <=1.030 01/25 [facility] *NA* /2016 Hospital (01/24/17 11:54 PM) URINE AND UA Color Yellow Yellow 01/25 [facility] STOOL *NA* /2016 Hospital (01/24/17 11:54 PM) URINE AND UA Turbidity Clear Clear 01/25 [facility] (01/24/17 11:54 PM) [facility]osp ital CARDIAC Total CK 62 12 - 191 01/25 [facility] ENZYMES Hospital CARDIAC CK MB <1.0 0.5 - 3.6 01/25 [facility]ZYMES [facility] CARDIAC Troponin-I <0.02 0.00 - 01/25 [facility] ENZYMES 0.40 Hospital CARDIAC CK-MB INDEX <1.6 0.0 - 2.5 01/25 [facility] ENZYMES [facility] CHEM PANEL ASPARTATE 14 0 - 37 01/25 [facility] TRANSAMINASE Hospital CHEM PANEL Bili Total 0.5 0.2 - 1.3 01/25 [facility] CHEM PANEL ALANINE 37 0 - 65 01/25 [facility] AMINOTRANSFE Hospital RASE CHEM PANEL Alk Phos 222 39 - 136 01/25 [facility] CHEM PANEL A/G Ratio 0.7 0.7 - 1.6 01/25 [facility] CHEM PANEL Globulin 4.7 2.7 - 4.2 01/25 [facility] CHEM PANEL Albumin Lvl 3.5 3.5 - 5.0 01/25 [facility] CHEM PANEL B/C Ratio 16 6 - 25 01/25 [facility] 2017 [facility] CHEM PANEL Total 8.2 6.4 - 8.4 01/25 [facility] CHEM PANEL Lipase Lvl 168 73 - 393 01/25 [facility] 2017 [facility] HEMATOLOGY Hgb 13.7 12.0 - 01/25 [facility] 16.0 [facility] HEMATOLOGY Hct 41.6 36.0 - 01/25 [facility] 48.0 [facility] HEMATOLOGY MCV 83.6 80.0 - 01/25 [facility] 98.0 /2016 Hospital HEMATOLOGY MCH 27.5 27.0 - 01/25 [facility] 31.0 /2017 Hospital HEMATOLOGY MCHC 32.9 32.0 - 01/25 [facility] 36.0 /2016 Hospital HEMATOLOGY RDW 13.6 11.5 - 10 [facility] 14.5 [facility] HEMATOLOGY Platelet 314 133 - 450 01/25 [facility] /2017 Hospital HEMATOLOGY MPV 8.1 7.4 - 10.4 01/25 [facility] /2017 Hospital HEMATOLOGY WBC X 10x3 5.8 3.7 - 10.4 01/25 [facility] /2017 Hospital HEMATOLOGY RBC X 10x6 4.97 4.20 - 01/25 [facility] 5.40 /2016 Hospital HEMATOLOGY Monocytes # 0.4 [...] Hospital HEMATOLOGY Segs 59.9 45.0 - 01/25 [facility] 75.0 /2016 Hospital HEMATOLOGY Lymphocytes 31.7 20.0 - 01/25 [facility] 40.0 [facility] BEDSIDE Comment1 Notify 02/05 NA GLUCOSE KIRIT/ /2011 [facility] TESTING BEDSIDE Gluc POC 293 70 - 99 02/05 HI <sup>1</sup>I GLUCOSE [facility] nterpretive [facility] TESTING Data: Upper Reportable Limit: [...] values reflect the clinical guidelines
of the [employer]. CHEMISTRY Chloride Lvl 98 95 [...] values reflect the clinical guidelines
of the [employer]. CHEMISTRY Chloride Lvl 100 95 [...] - 99 10/24 CRIT <sup>3</sup>I [place] GLUCOSE [facility] [place]terpretive [place] TESTING Data: Upper Reportable Limit: 200 mg/dL. BEDSIDE Gluc POC 273 65 - 110 05/23 HI <sup>1</sup>I [facility] [place] [facility] Data: Upper Reportable Limit: 200 mg/dL. BEDSIDE Comment1 Notify 05/23 NA [place] GLUCOSE RN/ [place] TESTING BEDSIDE Gluc POC >400 65 - 110 05/23 CRIT <sup>2</sup>I [facility] Data: Upper Reportable [...] on the clinical recommendatio ns of the [place] [employer]. CHEMISTRY BUN 12 7 - [...] on the clinical recommendatio ns of the [employer]. CHEMISTRY Creatinine 0.8 0.5 - [...] on the clinical recommendatio ns of the [place] [employer]. CHEMISTRY Lipase Lvl 171 73 [...] [place] (03/25/2011 20:00:00) [place] URINALYSIS UA [place] Yeast Occasional /HPF None Seen 03/26 ABN [...] on the clinical recommendatio ns of the [employer]. CHEMISTRY BUN 11.0 7 - [...] gar (02/10/2011 22:26:00) ?? [place] URINALYSIS UA [place] Yeast Occasional /HPF >None Seen 02/11 ABN [...] on the clinical recommendatio ns of the [employer]. CHEMISTRY Sodium Lvl 131.0 135 [...] - 110 01/15 HI <sup>1</sup>I [place] GLUCOSE [facility] [place]pretive [place] TESTING Data: Upper Reportable Limit: 200 mg/dL. BEDSIDE Comment1 Notify 01/15 NA [place] [facility]UCOSE RN/MD [place] TESTING BEDSIDE Comment1 Notify 01/15 NA [place] GLUCOSE RN/[facility] [place] TESTING BEDSIDE Gluc POC 88.0 65 - 110 01/15 Normal <sup>2</sup>I [place] GLUCOSE [facility] nterpretive [place] TESTING Data: Upper Reportable Limit: 200 mg/dL. BEDSIDE Comment1 Notify 01/15 NA [place] GLUCOSE RN/[place] TESTING BEDSIDE Gluc POC 70.0 65 - 110 01/15 Normal <sup>3</sup>I [place] GLUCOSE [facility] nterpretive [place] TESTING Data: Upper Reportable [...] on the clinical recommendatio ns of the [place] [employer]. CHEMISTRY LDL 96.0 0 - [...] on the clinical recommendatio ns of the [place] [employer]. CHEMISTRY BUN 9.0 7 - [...] 27.0 - 01/14 Normal [place] 31.0 /2010 [facility] HEMATOLOGY Hgb 13.2 12.0 - 10 Normal [place] 16.0 /2010 [facility] HEMATOLOGY RBC 4.6 4.20 - 01/14 Normal [place] 5.40 /2010 [facility] HEMATOLOGY Hct 38.9 36.0 - 01/14 Normal [place] 48.0 /2010 [facility] HEMATOLOGY MCV 84.6 81.0 - 01/14 Normal [place] 99.0 /2010 [facility] HEMATOLOGY WBC 5.6 3.7 - 10.4 10 Normal [place] /2010 [facility] HEMATOLOGY PT 13.6 12.0 - 01/14 Normal [place] 14.7 /2010 [facility] HEMATOLOGY PTT 30.2 22.9 - 10 Normal <sup>10</sup> Sean r 35.8 [place]ive [place] Data: Heparin Therapeutic Range: 57 - 92 Seconds HEMATOLOGY INR 1.04 0.85 - 01/14 Normal <sup>8</sup>I [facility] r 1.17 nterpretive [facility] Data: RECOMMENDED RANGES FOR PROTIME INR: 2.0-3.0 for most medical and surgical thromboemboli c states. 2.5-3.5 for artificial heart valves and recurrent embolism. INR SHOULD BE USED ONLY FOR PATIENTS ON STABLE ANTICOAGULANT THERAPY. HEMATOLOGY D-Dimer 1.5 01/14 NA <sup>9</sup>I [facility] r nterpretive [facility] Data: In DIC, quantitative D-Dimer is generally [...] and I concur with the interpretation. 02/25/2017 [facility] Clinical Indication: Headache, fever, neck pain Comparison: [...] No mass, hemorrhage, or subacute stroke. SL: [id number] Spine cervical wo CT cervical spine without contrast 02/25/2017 [facility] contrast CT Clinical Indication: - neck pain [...] ABDOMEN AND PELVIS WITH CONTRA ST 01/24/2017 [facility] contrast CT Clinical Indication: Acute l eft [...] series DX RIGHT FOOT 3 VIEW 12/26/2016 [facility] HISTORY: Toe injury. No comparisons. FINDINGS: There [...] Comments Source Systolic (mm Hg) 111 02/26/2017 [facility] Diastolic (mm Hg) 64 02/26/2017 [facility] Respitory Rate 16 02/26/2017 [facility] Temperature Oral (F) 97.6 F 02/26/2017 [facility] Heart Rate 85 02/26/2017 [facility] Respitory Rate 16 02/26/2017 [facility] Systolic (mm Hg) 114 02/26/2017 [facility] Diastolic (mm Hg) 66 02/26/2017 [facility] Heart Rate 82 02/26/2017 [facility] Temperature Oral (F) 98.8 F 02/26/2017 [facility] Weight 49.545 02/26/2017 [facility] BMI Calculated 18.75 02/26/2017 [facility] Height 162.56 cm 02/26/2017 [facility] Systolic (mm Hg) 109 02/26/2017 [facility] Diastolic (mm Hg) 65 [facility] 84 02/26/2017 [facility] Respitory Rate 14 02/26/[facility] Resp[facility] Rate 18 02/25/2017 [facility] Systolic (mm Hg) 114 02/25/2017 [facility] Diastolic (mm Hg) 63 02/25/2017 [facility] Temperature Oral (F) 98.2 F 02/25/2017 [facility] Heart Rate 78 02/25/2017 [facility] BMI Calculated 18.75 02/25/2017 [facility] Weight 49.545 02/25/2017 [facility] Height 162.56 cm 02/25/2017 [facility] Heart Rate 77 02/25/2017 [facility] Respitory Rate 18 02/25/2017 [facility] Temperature Oral (F) 97.8 F 02/25/2017 [facility] Systolic (mm Hg) 147 02/25/2017 [facility] Diastolic (mm Hg) 80 02/25/2017 [facility] Weight 49.659 02/25/2017 [facility] Height 167.64 cm 02/25/2017 [facility] Temperature Oral (F) 97.8 F 02/25/2017 [facility] BMI Calculated 17.67 02/25/2017 [facility] Systolic (mm Hg) 145 02/25/2017 [facility] Diastolic (mm Hg) 80 02/25/2017 [facility] Respitory Rate 18 02/25/2017 [facility] Heart Rate 77 02/25/2017 [facility] Temperature Oral (F) 98.5 F 01/26/[facility] Heart Rate 87 01/26/[facility] Respitory Rate 20 01/26/2017 [facility] Systolic (mm Hg) 116 01/26/2017 [facility] Diastolic (mm Hg) 69 01/26/2017 [facility] Heart Rate 79 01/26/2017 [facility] Respitory Rate 18 01/26/2017 [facility] Temperature Oral (F) 98.4 F [facility]/26/[facility] Systolic (mm Hg) 129 01/26/2017 [facility] Diastolic (mm Hg) 80 01/26/2017 [facility] Temperature Oral (F) 98.1 F 01/26/2017 [facility] Heart Rate 78 01/26/2017 [facility] Systolic (mm Hg) 120 01/26/2017 [facility] Diastolic (mm Hg) 69 01/26/2017 [facility] Respitory Rate 20 01/26/2017 [facility] Height 157.48 cm 01/25/2017 [facility] Weight 51.449 01/25/2017 [facility] BMI Calculated 20.75 01/25/2017 [facility] Weight 52.273 01/25/2017 [facility] BMI Calculated 19.78 01/25/2017 [facility] Height 162.56 cm 01/25/2017 [facility] Systolic (mm Hg) 121 12/27/2016 [facility] Diastolic (mm Hg) 81 12/27/2016 [facility] Respitory Rate 16 12/27/2016 [facility] Heart Rate 82 12/27/2016 [facility] Temperature Oral (F) 98.3 F 12/27/2016 [facility] Temperature Oral (F) 98.4 F 12/27/2016 [facility] Respitory Rate 18 12/27/2016 [facility] Systolic (mm Hg) 126 12/27/2016 [facility] Diastolic (mm Hg) 81 12/27/2016 [facility] BMI Calculated 18.92 12/27/2016 [facility] Weight 50 12/27/2016 [facility] Heart Rate 89 12/27/2016 [facility] Height 162.56 cm 12/27/2016 [facility] Height 162.56 cm 02/06/2012 [place] Weight 47.273 02/06/2012 [facility] Height 162.56 cm 11/29/2011 [place] Weight 50.000 11/29/2011 [place] Height 162.56 cm 10/25/2011 [place] Weight 54.545 10/25/2011 [place] Height 162.56 cm 05/23/2011 [place] Weight 50.000 05/23/2011 [place] Temperature Oral (F) 98.5 F 05/08/2011 [place] Diastolic (mm Hg) 57 05/08/2011 [place] [facility] Systolic (mm Hg) 107 05/08/2011 [place] Heart Rate 57 05/08/2011 [place] Respitory Rate 16 05/08/2011 [facility] [place] Weight 50.000 05/08/2011 [facility] [place] Height 162.56 cm 05/08/2011 [place] Temperature Oral (F) 98.6 F 05/08/2011 [facility] [place] Diastolic (mm Hg) 70 05/08/2011 [facility] [place] [facility] and Systolic (mm Hg) 127 05/08/2011 [facility] [place] Heart Rate 83 05/08/2011 [facility] [place] Respitory Rate 16 05/08/2011 [facility] [place] Respitory Rate 18 04/20/2011 [place] Heart Rate 79 04/20/2011 [facility] [place] Diastolic (mm Hg) 75 04/20/2011 [facility] [place] [facility] Systolic (mm Hg) 119 04/20/2011 [facility] [place] Diastolic (mm Hg) 97 04/20/2011 [facility] [place] [facility] Heart Rate 80 04/20/2011 [facility] [place] Systolic (mm Hg) 148 04/20/2011 [facility] [place] Respitory Rate 20 04/20/2011 [place] Weight 50.000 04/20/2011 [facility] [place] Systolic (mm Hg) 122 04/20/2011 [place] Temperature Oral (F) 98.0 F 04/20/2011 [place] Respitory Rate 18 04/20/2011 [place] Heart Rate 79 04/20/2011 [facility] [place] Diastolic (mm Hg) 75 04/20/2011 [place] [facility] and Temperature Oral (F) 98.0 F 03/26/2011 [place] Respitory Rate 18 03/26/2011 [place] Heart Rate 69 03/26/2011 [facility] [place] Systolic (mm Hg) 112 03/26/2011 [place] Diastolic (mm Hg) 60 03/26/2011 [facility] [place] and Height 160.02 cm 03/26/2011 [facility] [place] Weight 53.636 03/26/2011 [place] Temperature Oral (F) 99.0 F 03/26/2011 [place] Diastolic (mm Hg) 67 03/26/2011 [facility] [place] and Systolic (mm Hg) 115 03/26/2011 [facility] [place] Respitory Rate 16 03/26/2011 [place] Heart Rate 75 03/26/2011 [facility] [place] Diastolic (mm Hg) 51.0 02/11/2011 [facility] [place] [facility] and Respitory Rate 14.0 02/11/2011 [facility] [place] Systolic (mm Hg) 100.0 02/11/2011 [facility] [place] Heart Rate 59.0 02/11/2011 [place] Temperature Oral (F) 98.1 F 02/11/2011 [facility] [place] Diastolic (mm Hg) 54.0 02/11/2011 [facility] Systolic (mm Hg) 102.0 02/11/2011 [place] Temperature Oral (F) 97.5 F 02/11/2011 [place] Heart Rate 61.0 02/11/2011 [facility] [place] Respitory Rate 16.0 02/11/2011 [place] Height 162.56 cm 02/11/2011 [facility] [place] Weight 56.96 02/11/2011 [facility] [place] Respitory Rate 18.0 02/11/2011 [place] Temperature Oral (F) 98.0 F 02/11/2011 [place] Heart Rate 61.0 02/11/2011 [place] Systolic (mm Hg) 111.0 02/11/2011 [place] Diastolic (mm Hg) 61.0 02/11/2011 [place] [facility] and Weight 52.273 02/11/2011 [place] Height 162.56 cm 02/11/2011 [place] Diastolic (mm Hg) 59.0 01/15/2011 [place] [facility] and Systolic (mm Hg) 105.0 01/15/2011 [place] Temperature Oral (F) 97.0 F 01/15/2011 [place] Heart Rate 59.0 01/15/2011 [place] Respitory Rate 18.0 01/15/2011 [place] Temperature Oral (F) 97.2 F 01/15/2011 [place] Respitory Rate 18.0 01/15/2011 [place] Heart Rate 71.0 01/15/2011 [place] Diastolic (mm Hg) 59.0 01/15/2011 [facility] Systolic (mm Hg) 106.0 01/15/2011 [place] Respitory Rate 18.0 01/15/2011 [place] Systolic (mm Hg) 110.0 01/15/2011 [place] Heart Rate 62.0 01/15/2011 [place] Temperature Oral (F) 97.9 F 01/15/2011 [place] Diastolic (mm Hg) 58.0 01/15/2011 [facility] Height 162.56 cm 01/15/2011 [place] Weight 56.818 01/15/2011 [place] Height 162.56 cm 01/14/2011 [place] Weight 50.0 01/14/2011 [place] Systolic (mm Hg) 115.0 12/22/2010 [place] Diastolic (mm Hg) 78.0 12/22/2010 [place] [facility] Peripheral Pulse Rate 74.0 12/22/2010 [place] Respitory Rate 16.0 12/22/2010 [place] Height 162.56 cm 12/22/2010 [place] Weight 52.273 12/22/2010 [place] Temperature Oral (F) 98.2 F 12/22/2010 [place] Respitory Rate 16.0 12/22/2010 [place] Peripheral Pulse Rate 75.0 12/22/2010 [place] Diastolic (mm Hg) 77.0 12/22/2010 [place] and Systolic (mm Hg) 125.0 12/22/2010 [place] Encoun[place] Location Location Encounter Encounter Reason Attending ADM [place] Stat Source Details Type Number For Provider Date Date Visit Emergency [id number] ABD TRA PSYK 08/15 08/16 Acti ve [facility] 8 PAIN, /2009 [place] Emergency [id number] UPPER BE 09/20 09/21 [facility] 9 ABDOMINA WHITE GREEN /2009 [place] Emergency [id number] EAR PAIN TRA PSYK 10/09 10/09 [facility] [place] [facility] [id number] CHEST TAJUDDIN 10/31 11/02 Active [place] 1 PAIN CONSUELO /2009 [place] Emergency [id number] ABDOMINA TROY 01/03 01/03 Active [place] 2 L PAIN ROWAN /2009 [place] OU [id number] ABDOMINA CHRISTOPHER 01/05 01/07 Activ e [place] 4 L PAIN GONZALEZ /2009 [place] Emergency [id number] [place] TRA PSYK 07/21 07/21 Acti ve [place] 6 HIGH,VAG /2010 [place] BLEEDING Emergency [id number] FACIAL TROY 10/07 10/07 Active [place] 7 AND NECK [place]OW[place] /2010 [place] PAIN [place] Inpatient [id number] FACIAL TARAH 10/09 10/13 Active [facility] 8 NECK BRIDGES /2010 [place] CELL[place]IT [place] IS Emergency [id number] MOISE MONTEMAYOR 12/22 12/22 Disc harg [facility] ed [place] OU [id number] CHEST DEE CROCKETT 01/14 01/15 Active [facility] 0 PAIN /2010 [place] OU [id number] CHEST DEE CROCKETT 02/11 02/11 [facility] 1 PAIN, /2010 [place] DI[place] S,HYPERG LYCEMIA, UTI Emergency [id number] LOWER LIZY 03/25 03/26 Active [facility] 2 ABD WISEMAN /2010 [place] HIGH [place] Emergency [id number] RIGHT LIZY 04/19 04/20 Active [facility] 3 ABDOMINA WISEMAN /2011 [place], [place] BLOOD IN URINE Emergency [id number] BLEEDING TROY 05/07 05/07 Active [facility] 4 / RT [place]OW[place] /2011 [place] SIDE [place] PAIN Emergency [id number] ABDOMINA VIMI SHOEMAKER 05/22 05/23 Ac tive [facility] 5 L PAIN /2011 [place] BLOOD [place] Emergency [id number] LEFT VIMI SHOEMAKER 10/23 10/24 Acti ve [facility] 6 LOWER /2011 [place] L PAIN Emergency [id number] BLOOD VIMI SHOEMAKER 11/27 11/27 Acti ve [facility] 7 SUGAR /2011 [place] PROBLEM [place] YEIMY [id number] GUIDO 02/05 02/05 Discharg [facility] 9 BAVISHI ed [facility] Outpatient [id number] ABDOMINA GUIDO 02/16 Active [facility] 8 L [facility]IN [facility] Emergency [id number] Moise Montemayor 12/27 12/27 JUSTO [place] [facility] [id number] Greg 01/25 01/26 Jona 1 Kayla /2016 [place] [facility] Emergency [id number] Rudolph 02/25 02/25 Jona 2 Pilar Jr [facility] [id number] Rudolph 02/26 02/26 Jona 3 [place] [facility] l Outpatient [id number] ABD PAIN MESHA Activ e [facility] 3 [facility] Procedures Procedure Code Date Perfomer Comments Source Appendectomy [id number] [facility] Cholecystectomy [id number] [facility] Partial hysterectomy [id number] [facility] Assessment and Plan Assessment and Plan Date Source Extracted from:Title: Progress Note * 01/26/2017 RUST Author: Marie June MD Date: 01/25/17 Impression and Plan The patient was seen and examined by me with the resident/[employer]CH[employer]IC/PA and I agree with the History/Exam documented. [...]
--- OUTSIDE RECORDS SUMMARY | 2020-01-04 14:41 | XMS REPORT | Continuity of Care Document ---
:1965 Author Organization [facility] t Address [address] [place] [address] Care Team Providers Name Role Phone Sharpless Primary Care Physician Pretty TANP, F Attending Clinician Doctor Unassigned, Name Attending [...] HURT 00:00: Jona TOES 00 Active 12/27/2016 [facility] [place] ABDOMINAL Diagnosis Active 2011-042012-02-17 Memoria PAIN 0-26 10:42:00 l 00:00: Jona ABDOMINAL 00 PAIN Active 02/07/2012 [facility] EGD Diagnosis Active 2011-042012-02-06 Mem oria 0-24 10:10:00 l EGD 06:00: Jona 00 Active 02/05/2012 [facility] BLOOD Diagnosis Active 2011-12-11 Mem oria SUGAR 8-16 11:15:00 l PROBLEM BLOOD 15:00: Jona SUGAR 00 PROBLEM Active 11/28/2011 [facility] LEFT LOWER Diagnosis Active 2011-12-11 Memoria ABDOMINAL 7-12 10:48:00 l PAIN LEFT 08:00: [place] LOWER 00 ABDOMINAL PAIN Active 10/24/2011 [place] ABDOMINAL Diagnosis Active 2011-12-11 Memoria PAIN HIGH 2-08 11:09:00 l BLOOD 22:00: Jona SUGAR ABDOMINAL 00 PAIN HIGH BLOOD SUGAR Active 05/22/2011 [facility] BLEEDING/ Diagnosis Active 2011-12-11 Memoria RT SIDE 1-24 11:06:00 l PAIN 08:00: [place] BLEEDING/ 00 RT SIDE PAIN Active 05/07/2011 [facility] RIGHTABDOM Diagnosis Active 2011-04-19 Memoria INAL PAIN 1-06 20:37:00 l . AND 00:00: Jona BLOOD IN RIGHTABDOM 00 URINE INAL PAIN . AND BLOOD IN URINE Active 04/19/2011 [facility] RIGHT Diagnosis Active 2011-12-20 Mem oria ABDOMINAL 1-06 13:03:00 l PAIN, RIGHT 00:00: [place] BLOOD IN ABDOMINAL 00 URINE PAIN, BLOOD IN URINE Active 04/19/2011 [facility] LOWER ABD Diagnosis Active 2010-042011-12-11 Memoria PAIN/ HIGH 2-12 11:02:00 l SUGAR LOWER 00:00: Jona ABD PAIN/ 00 HIGH SUGAR Active 03/25/2011 [facility] CHEST PAIN Diagnosis Active 2010-042011-02-11 Memoria AND 0-30 01:56:00 l TIGHTNESS CHEST 18:00: Jorge Luis n PAIN AND 00 TIGHTNESS Active 02/10/2011 [facility] CHEST Diagnosis Active 2010-042011-02-15 Mem oria PAIN, 0-30 21:58:00 l DIZZINESS, CHEST 18:00: Eugenia nn HYPERGLYCE PAIN, 00 EB, UTI DIZZINESS, HYPERGLYCE EB, UTI Active 02/10/2011 [facility] CHEST PAIN Diagnosis Active 2010-042011-01-15 Memoria 0-03 16:36:00 l CHEST 15:00: [place] PAIN 00 Active 01/14/2011 [facility] RIGHT KNEE Diagnosis Active 2010-12-22 Memoria 1ST 3 TOES 9-10 13:04:00 l NUMB RIGHT 11:00: Jona KNEE 1ST 3 00 TOES NUMB Active 12/22/2010 [facility] FACIAL Diagnosis Active 2010-12-22 Mem oria NECK 10-08 13:04:00 l CELLULITIS FACIAL 00:00: Herm ava NECK 00 CELLULITIS Active 10/08/2010 [place] FACIAL AND Diagnosis Active 2010-12-22 Memoria NECK PAIN 10-07 13:04:00 l FACIAL 06:00: [place] AND NECK 00 PAIN Active 10/07/2010 [facility] SUGAR Diagnosis Active 2010-12-22 Mem oria HIGH,VAGIN 07-21 13:04:00 l AL SUGAR 00:00: [place] BLEEDING HIGH,VAGIN 00 AL BLEEDING Active 07/21/2010 [facility] ABD PAIN Diagnosis Active 2010-12-22 M emoria 01-05 13:04:00 l ABD PAIN 00:00: Jorge Luis n 00 Active 01/05/2010 [facility] EAR PAIN Diagnosis Active 2010-12-22 M emoria 10-09 13:04:00 l EAR PAIN 19:00: Jorge Luis n 00 Active 10/09/2009 [facility] UPPER Diagnosis Active 2010-12-22 Mem oria ABDOMINAL 09-20 13:04:00 l PAIN UPPER 14:00: [place] ABDOMINAL 00 PAIN Active 09/20/2009 [facility] ABD PAIN, Diagnosis Active 2010-12-22 Memoria HIGH SUGAR - 13:04:00 l ABD 00:00: Jona PAIN, HIGH 00 SUGAR Active 08/15/2009 [facility] Abdominal Problem Active 2012-02-19 Me moria pain 09:23:16 l Jona Abdominal pain Active Problem 02/19/2012 [facility] [place] Cellulitis Problem Active 2012-02-19 M emoria 09:23:16 l Jona Cellulitis Active Problem 02/19/2012 [facility] [place] Chest pain Problem Active 2012-02-19 M emoria 09:23:16 l Chest Jona pain Active Problem 02/19/2012 [facility] [place] Hyperglyce Problem Active 2012-02-19 M emoria eb 09:23:16 l [place]ona Hyperglyce eb Active Problem 02/19/2012 [facility] [place] UTI - Problem Active 2012-02-19 Memor ia Urinary 09:23:16 l tract UTI - [place] infection Urinary tract infection Active Problem 02/19/2012 [facility] [place] Diabetes Problem Active 2017-03-01 Mem oria mellitus 04:36:24 l (disorder) Diabetes He rmann mellitus (disorder) Active Problem 03/01/2017 [facility] [place] Restless Problem Active 2017-03-01 Mem oria legs 04:36:24 l (disorder) Restless He rmann legs (disorder) Active Problem 03/01/2017 [facility] Abdominal Problem Active 2017-03-01 Me moria pain 04:36:24 l (finding) Jona Abdominal pain (finding) Active Problem 03/01/2017 [facility] Chest pain Problem Active 2017-03-01 M emoria (finding) 04:36:24 l Chest [place] pain (finding) Active Problem 03/01/2017 [facility] Hyperglyce Problem Active 2017-03-01 M emoria eb 04:36:24 l (disorder) Jorge Luis n Hyperglyce eb (disorder) Active Problem 03/01/2017 [facility] [place] Urinary Problem Active 2017-03-01 Nirmal feliz tract 04:36:24 l infectious Urinary Her pugh disease tract (disorder) infectious disease (disorder) Active Problem 03/01/2017 [facility] [place] CHEST PAIN Diagnosis Active 2010-12-22 Memoria NOS 13:04:00 l CHEST Jona PAIN NOS Active [place] CELLULITIS Diagnosis Active 2010-12-22 Memoria NOS 13:04:00 l Jona CELLULITIS NOS Active [place] Hyperglyce Problem 2016-2017-03-01 2017-03-01 Memoria eb, -14 04:36:24 04:36:24 l unspecifie 06:00: Jorge Luis n d Hyperglyce 00 eb, unspecifie d 02/25/2017 03/01/2017 [facility] [place] Fever, Problem 2016-2017-03-01 2017-03-01 M emoria unspecifie - 04:36:24 04:36:24 l d Fever, 06:00: [place] unspecifie 00 d 02/25/2017 03/01/2017 [facility] Radiculopa Problem 2016-2017-02-28 2017-02-28 Memoria thy, 1-14 05:26:25 05:26:25 l cervical 06:00: [place] region Radiculopa 00 thy, cervical region 02/25/2017 02/28/2017 [facility] [place] Displaced Problem 2016-2016-12-30 2016-12-30 Memoria unspecifie 9-15 05:13:20 05:13:20 l d fracture 05:00: Jorge Luis n of right Displaced 00 lesser unspecifie toe(s), d fracture initial of right encounter lesser for closed toe(s), fracture initial encounter for closed fracture 12/30/2016 [facility] [place] Allergies, Adverse Reactions, Alerts Allergy Allergy Status [...] [facility] Social History 2017-02-03 2017-02-03 [facility] hermila 15:24:44 15:24:44 Smoking Status Start Date Stop Date Source Never smoker [facility] Medications Ordered Filled Start Stop Current Ordering Indication Dosage Frequency Signature Comments Components Source Medication Medication Date Date Medication? Clinician (SIG) Name Name rOPINIRole 2018 Yes 1mg [id number] Take [address] [facility] (REQUIP) 1 3-26 [id number] by mouth 3 [facility] - [facility] tablet 11:54: 3D (three) Medic al 47 times Center daily. pregabalin Yes 50mg [id number] Take [address] [facility] (LYRICA) 50 3-26 [id number] by mouth 3 [facility] - MG capsule 11:54: 3D (three) Medi steven 47 times Center daily. GI cocktail 2016-04 No Notes: Nirmal feliz 1-15 G.I. l 05:06: Cocktail = [place] 00 antacid with simethicon e 22.5 mL - lidocaine viscous 7.5 mL Zofran 2016-04 No Notes: Memoria 1-15 (Same as: l 04:41: Zofran) Jona 00 MEDICATION WASTE Product Size: 4 mg Product Wasted: ___ mg Zofran 2016-04 No Notes: Memoria 1-15 (Same as: l 02:34: Zofran) [place] 00 MEDICATION WASTE Product Size: 4 mg Product Wasted: ___ mg Morphine 2016-04 No Notes: Memoria 1-15 (Same l 02:34: as:MORPhin Jona 00 e Sulfate) Lidocaine 2016-04 Yes Notes: Memori a Hydrochlori 1-15 Preservati l de 10 MG/ML 02:33: ve free. 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, Stop date: 02/25/17 20:22:00 TRAINING TECHNICIAN ibuprofen 2016-04 Yes 800 mg = 1 Me moria 800 mg oral 1-14 tab, PO, l tablet 07:20: Q8H, PRN [place] 00 Pain, Take with food, X 5 [...] day, # 6 tab, 0 Refill(s), [facility]acy: [id number] Humalog 100 2016-04 Yes 4 unit, Mem oria units/mL 0-15 SUB-Q, l 14:48: TID-Before Meals, hold insulin injection if your blood sugar is less than 140 mg/dL., # 10 mL, 0 Refill(s), [facility]: [id number] pantoprazol 2016-04 Yes 40 mg = 1 M emoria e 40 MG 0-15 tab, PO, l Enteric 14:48: Daily, # Jorge Luis n Coated 00 30 tab, 0 Tablet Refill(s), [Protonix] Pharmacy: [id number] Calcium 2016-04 Yes 500 mg = 1 Nirmal feliz Carbonate 0-15 tab, PO, l 500 MG 14:48: TID, # 6 [place] Chewable 00 tab, 0 Tablet Refill(s), [facility]acy: [id number] Insulin 2016-04 Yes 15 unit, Memori a Glargine 0-15 SUB-Q, l 100 UNT/ML 14:48: Daily, # Her pugh Injectable 00 10 mL, 0 Solution Refill(s), [Lantus] Pharmacy: [id number] Calcium 2016-04 No Notes: Memoria [...] Memoria 0-15 (Same as: l 02:00: Requip) [place] 00 Lyrica 2016-04 No Notes: Memoria 0-15 (Same as: l 02:00: Lyrica) Jona 00 Calcium 2016-04 No Notes: Memoria Carbonate 0-14 (Same As: l 22:40: Tums) [place] Calcium Carbonate 500 mg = 200 mg elemental calcium Dose = mg calcium carbonate ( mg elemental calcium) Protonix 2016-04 No Notes: Memoria 0-14 Tablet l 22:00: should not Jona 00 be chewed or crushed. (Same as: Protonix) Magnesium 2016-04 No Notes: Memori a Oxide 0-14 (Same as: l 22:00: Mag-Ox [place] 00 400) Magnesium oxide [id number] g elemental magnesium Dose=____m g magnesium oxide (___mg elemental magnesium) Ketorolac 2016-04 No 4 days Memor ia 0-14 l 17:02: MEDICATION [place] WASTE Product Size: 30 mg Product Wasted: ___ mg Docusate 2016-04 No Notes: Memoria 0-14 (Same as: l 14:00: Colace) [place] (Do Not Crush) Insulin 2016-04 No 50 [...] Duration: 30 day, Stop date: 02/24/17 0:34:00 TRAINING TECHNICIAN Insulin 2016-04 No 60 Memoria Lispro 0-14 [...] Duration: 30 day, Stop date: 02/24/17 0:34:00 TRAINING TECHNICIAN Acetaminoph 2016-04 No Notes: Do M emoria en 0-14 not exceed l 06:32: 4 gm/day. Jona 00 (Same as: Tylenol) Acetaminoph 2016-04 No Notes: Nirmal feliz en 325 MG / 0-14 (Same as: l Hydrocodone 06:32: [place] Eugenia nn Bitartrate 00 325/5) Do 5 MG Oral not exceed Tablet 4gm/day of acetaminop hen. Ondansetron 2016-04 No Notes: Nirmal feliz 0-14 (Same as: l 06:32: Zofran) Jona MEDICATION WASTE Product Size: 4 mg Product Wasted: ___ mg sodium 2016-04 No 1,000 mL, Memori a chloride 0-14 Rate: 75 l 0.9% 1000 06:32: ml/hr, Jorge Luis n ml INJ 00 Infuse 1,000 mL over: 13.3 hr, Route: IV, Dosing Weight 51.449 kg, Total Volume: 1,000, Start date: 01/25/17 1:32:00 CDT, Stop date: 02/24/17 1:31:00 TRAINING TECHNICIAN Saline 2016-04 No Notes: Memoria Flush 0.9% 0-14 (Same as: l 06:32: BD [place] 00 Posiflush) Ketorolac 2016-04 No 15 mg, [...] times, Stop date: 01/24/17 22:15:00 CDT Sodium 2016- No 500 mL, Memoria Chloride 0-14 500 ml/hr, l 0.9% 03:09: Infuse [place] (Bolus) IV 00 Over: 1 hr, Route: [...] / 12-27 (Same as: l Hydrocodone 04:47: [place] Eugenia nn Bitartrate 00 325/5) Do 5 MG Oral not exceed Tablet 4gm/day of [[place] acetaminop 5/325] hen. insulin Yes QD Inject [facility] glargine 1-05 subcutaneo [facility] - (LANTUS) 12:38: [facility] 100 unit/mL 45 nightly. Cent er injection Use as directed Sodium No Vimi 500 mL, Memoria Chloride 11-28 Roche Rate: 500 l 0.9% 03:47: ml/hr, [place] (Bolus) IV 00 Infuse 500 mL over: [...] Duration: 30 day, Stop date: 12/28/11 21:50:00 [place] 5/325 Yes Juan 1-2 tab, M emoria oral tablet 7-13 Keith PO, Q4-6H, l 06:12: Yeaton PRN, 15 [place] 25 tab, Pain, Substituti on Allowed, Soft [...] No Juan 25 mg, Mem oria MINE 7- Keith Route: l 05:06: Yeaton IVP, ONCE, [...] 2-09 Roche Route: l 07:52: IVP, ONCE, [place] Start date: 05/23/11 1:52:00, Stop date: 05/23/11 [...] Roche mL, Route: l 05:04: IVP, Drug [place] 00 form: INJ, ONCE, Priority: STAT, Start date: 05/22/11 23:04:00, Stop date: 05/22/11 23:04:00 ondansetron 2011-0 No Vimi 4 mg, 2 Mem oria 2- Roche mL, Route: l 05:04: IVP, Drug form: INJ, ONCE, Priority: STAT, Start date: 05/22/11 23:04:00, Stop date: 05/22/11 23:04:00 Sodium 2011-0 No Vimi 500 mL, Memoria Chloride 05-23 Roche Rate: l 0.9% 05:04: 1,000 [place] (Bolus) IV 00 ml/hr, 500 mL Infuse [...] tab, PO, l tablet 02:08: TID, 9 [place] 33 tab, Substituti on Allowed Cipro 500 2011-0 Yes Sonal 500 mg, 1 M emoria mg oral 1-25 Raulito tab, PO, l tablet 02:07: Q12H, 28 [place] 41 tab, Substituti on Allowed, TAB Pyridium 2011-0 No Sonal 200 mg, 2 Me moria 1-25 Raulito tab, l 02:03: Route: PO, Jona Drug form: TAB, ONCE, Priority: STAT, Start date: 05/07/11 20:03:00, Stop date: 05/07/11 20:03:00 Cipro 2011-0 No Sonal 500 mg, 2 Memor ia 1-25 Raulito tab, l 02:03: Route: PO, [place] 00 Drug form: TAB, ONCE, Priority: STAT, Start date: 05/07/11 20:03:00, Stop date: 05/07/11 20:03:00 Cipro 500 2011-0 Yes Juan 500 mg, 1 Me moria mg oral - Keith tab, PO, l tablet 06:55: Yeaton BID, 20 Jorge Luis n 31 tab, Substituti on Allowed Zofran ODT 2011-0 Yes Juan 4 mg, 1 Mem oria 4 mg oral - Keith tab, PO, l tablet, 06:55: Yeaton TID, PRN, Her pugh disintegrat 29 10 tab, ing Nausea and Vomiting, Substituti on Allowed [place] 2011- Yes Juan 1 tab, PO, Memor ia 10/325 oral 04-20 Keith Q4-6H, l tablet 06:55: Yeaton PRN, 24 Jorge Luis n 26 tab, as needed for pain, Substituti on Allowed, Maintenanc e hydromorpho 2011-0 No Juan 1 mg, 0.5 Memoria ne 04-20 Keith mL, Route: l 05:38: Yeaton IVP, Drug Jorge Luis n 00 form: INJ, ONCE, Priority: STAT, Start date: 04/19/11 23:38:00, Stop date: 04/19/11 23:38:00 Insulin 2011-0 No Juan 10 unit, Memor ia regular 04-20 Keith 0.1 mL, l 05:31: Yeaton Route: [place] 00 IVP, Drug form: SOLN, ONCE, Priority: [...] 2011-0 No Juan 4 mg, Nirmal feliz -07 Keith Route: l 03:30: Yeaton IVP, [...] Mila 150 ml, Me moria citrate 2-13 [place] Phelps PO, ONCE, l 8.85% oral 05:57: 300 ml, Herm ava liquid 30 Substituti on Allowed, Maintenanc e, LIQ MiraLax 2010-04 Yes Mila 17 gm, PO, M emoria oral powder 2-13 [place] Phelps Daily, 255 l for 05:57: gm, [place] reconstitut 18 Substituti ion on Allowed, PDR/REC Phenergan 2010-04 Yes Mila 25 mg, 1 M emoria 25 mg oral 2-13 Zay Phelps tab, PO, l tablet 05:57: Q6H, PRN, Jorge Luis n 09 15 tab, Nausea, Substituti on Allowed Vicodin 2010-04 Yes Mila 1 tab, PO, M emoria 5/500 oral 2-13 [place] Phelps Q4-6H, l tablet 05:57: PRN, 24 Jona 05 tab, for Pain, Substituti on Allowed, Maintenanc e Sodium 2011-1 No Mila 1,000 mL, Mem oria Chloride 2-13 [place] Phelps Rate: l 0.9% 03:24: 1,000 [place] (Bolus) IV 00 ml/hr, 1,000 mL Infuse over: 1 hr, Route: IV, Total Volume: 1,000, Bolus Dose, Priority: STAT, Start date: 03/25/11 21:24:00, Duration: 1 doses or times, Stop date: 03/25/11 22:23:00 Insulin 2010-04 No Mila 10 unit, Mem oria regular 2-13 Zay Phelps 0.1 mL, l 03:16: Route: [place] 00 IVP, Drug form: SOLN, ONCE, Priority: STAT, Start date: 03/25/11 21:16:00, Stop date: 03/25/11 21:16:00 Omnipaque 2010-04 Yes Mila 30,000 mg, Memoria 300 2-13 [place] Phelps 100 mL, l 03:15: Route: IV, [place] 00 Drug form: SOLN, ONCE, Start date: 03/25/11 21:15:00, Stop date: 03/25/11 21:15:00 Saline 2010-04 No Mila 5 ml, Memoria Flush 0.9% 2-13 [place] Phelps Route: l 02:19: IVP, Drug Form: INJ, PRN, PRN Line Flush, Start date: 03/25/11 20:19:00, Duration: 30 day, Stop date: 04/24/11 20:18:00 ondansetron 2010-04 No Mila 4 mg, 2 Memoria 2-13 Zay Phelps mL, Route: l 02:19: IVP, Drug [place] 00 form: INJ, ONCE, Priority: STAT, Start date: 03/25/11 20:19:00, Stop date: 03/25/11 20:19:00 morphine 2010-04 No Mila 4 mg, 0.8 M emoria Sulfate 2-13 [place] Phelps mL, Route: l 02:19: IVP, Drug [place] 00 form: INJ, ONCE, Priority: STAT, Start date: 03/25/11 20:19:00, Stop date: 03/25/11 20:19:00 nitroglycer 2010-04 No 0.4 mg, 1 M emoria in 0.4 mg 0-31 tab, SL, l sublingual 17:47: Q5Min, Eugenia nn tablet 03 PRN, as needed for chest pain, Substituti on Allowed aspirin 81 2010-04 Yes 1 tab, PO, M emoria mg tablet, 0-31 Daily, l chewable 17:29: tab, [place] 44 Substituti on Allowed, CHEWTAB Cipro 2010-04 No Dk 250 mg, 1 Memori a 0-31 Ari tab, l 16:00: [place] Route: PO, Herm ava 00 Drug form: TAB, [id number], Start date: 02/11/11 11:00:00, Duration: 30 day, Stop date: 03/12/11 23:00:00 magnesium 2010-04 No [place] 400 mg, 1 M emoria oxide 0-31 Minhvu Victoriano tab, l 14:00: [place] Route: PO, Jona 00 Drug form: TAB, Daily, Start date: 02/11/11 9:00:00, Duration: 30 day, Stop date: 03/12/11 9:00:00 Lantus 2010-04 No Dk 70 unit, Memori a 0-31 Ari Route: l 14:00: Jonathan SUB-Q, [place] 00 Drug form: SOLN, Daily, Start date: 02/11/11 9:00:00, Duration: 30 day, Stop date: 03/12/11 9:00:00 Levemir 2010-04 No Dk 70 unit, Memor ia FlexPen 0-31 Ari 0.7 mL, l 14:00: Jonathan Route: [place] 00 SUB-Q, Drug form: INJ, Daily, Start [...] PO, l tablet 11:36: [place] BID, 6 [place] 36 tab, Substituti on Allowed Cipro 2010-04 No Dk 250 mg, 1 Memori a 0-31 Ari tab, l 08:00: Jonathan Route: PO, Herm ava 00 Drug form: TAB, [id number], Start date: 02/11/11 3:00:00, Duration: 30 day, [...] l 07:05: [place] Route: PO, Herm ava Drug form: CAP, Bedtime, PRN Insomnia, Start date: 02/11/11 2:05:00, Duration: 30 day, Stop date: 03/13/11 2:04:00 aspirin 325 2010-04 No Dk 325 mg, 1 Memoria mg tablet 0-31 Ari tab, l 07:05: [place] Route: PO, Herm ava Drug form: TAB, ONCE, Start date: 02/11/11 2:05:00, Stop date: 02/11/11 2:05:00 morphine 2010-04 No Penelope S 2 mg, 0.4 Me moria Sulfate 0-31 Shauna mL, Route: l 05:37: IVP, Drug Jona 00 form: INJ, ONCE, Priority: STAT, Start date: 02/11/11 0:37:00, Stop date: 02/11/11 0:37:00 Visipaque 2010-04 No Penelope S 48,000 mg, Memoria 0-31 Shauna 150 mL, l 04:55: Route: IV, [place] Drug form: INJ, ONCE, Start date: 02/10/11 23:55:00, Stop date: 02/10/11 23:55:00 Zofran 2010-04 No Penelope S 4 mg, 2 Memori a 0-31 Shauna mL, Route: l 04:28: IVP, Drug [place] 00 form: INJ, ONCE, Start date: 02/10/11 23:28:00, Stop date: 02/10/11 23:28:00 Cipro 2010-04 No Penelope S 400 mg, Memoria 0-31 Shauna Route: l 04:08: IVPB, [place] 00 ONCE, Priority: STAT, Start date: 02/10/11 23:08:00, Stop date: 02/10/11 23:08:00 Insulin 2010-04 No Penelope S 10 unit, Nirmal feliz regular 0-31 Shauna Route: l 03:56: SUB-Q, Jona 00 ONCE, Priority: STAT, Start date: 02/10/11 22:56:00, Stop date: 02/10/11 22:56:00 Sodium 2010-04 No Penelope S 1,000 mL, Nirmal feliz Chloride 0- Shauna Rate: l 0.9% 03:55: 1,000 Jona (Bolus) IV 00 ml/hr, 1000 mL Infuse [...] 02:47: Drug form: Jona 00 TAB, ONCE, Priority: STAT, Start date: 02/10/11 21:47:00, Stop date: 02/10/11 21:47:00 metoprolol 2010-04 No Penelope S 50 mg, Mem oria tartrate 0- Shauna Route: PO, l 02:47: Drug form: [place] 00 TAB, ONCE, (Hold if SBP < [...] 0-31 Shauna Route: l 02:47: IVP, PRN, PRN Line Flush, Start date: 02/10/11 21:47:00, [...] Victoriano tab, l 02:00: [place] Route: PO, [place] 00 Drug form: TAB, Bedtime, Start date: [...] Q12H, l tablet 15:37: Edwards 30 tab, Jona 31 Substituti on Allowed, TAB aspirin 325 2010-04 Yes Giovani 9,750 mg, Memoria mg tablet, 0-04 Xiaoguang 30 tab, l enteric 15:37: Edwards PO, Daily, Herm ava coated 18 30 tab, Substituti on Allowed, ECTAB metoprolol 2010-04 No Giovani 12.5 mg, Me moria 0-04 Xiaoguang 0.5 tab, l 15:36: Edwards Route: PO, [place] 00 Drug form: TAB, Q12H, Priority: NOW, Start date: 01/15/11 10:36:00, Duration: 30 day, Stop date: 02/14/11 9:00:00 Fioricet 2010-04 Yes Tajuddin 1 tab, PO, Memoria oral tablet 0-04 Qasimali Q4H, PRN, l 14:18: [place] 30 tab, [place] 21 Headache, Substituti on Allowed, Maintenanc e, [...] Victoriano Route: l 02:00: [place] IVP, Drug [place] 00 Form: INJ, Q12H, Start date: 01/14/11 [...] Minhvu Victoriano Route: l 02:00: [place] SUB-Q, [place] 00 Bedtime, Start date: 01/14/11 21:00:00, Duration: 30 day, Stop date: 02/12/11 21:00:00 glucagon 2010-04 Beth Duncan 1 mg, Memori a 0-04 Minhvu Victoriano Route: IM, l 00:22: [place] Drug form: [place] 00 PDR/INJ, PRN, PRN Blood Glucose Results, Start date: 01/14/11 19:22:00, Duration: 30 day, Stop date: 02/13/11 19:21:00 Insulin 2010-04 Beth Duncan 6 unit, Memor ia (Novolog) 0-04 Minhvu Victoriano 0.06 mL, l Sliding 00:22: [place] Route: [place] Scale - 00 SUB-Q, Very High Drug form: SOLN, Sliding Scale, PRN Blood Glucose Results, Start date: 01/14/11 19:22:00, Duration: 30 day, Stop date: 02/13/11 19:21:00 Dextrose 2010-04 Beth Duncan 25 gm, 50 Me moria 50% Syringe 0-04 Minhvu Victoriano ml, Route: l 00:22: [place] IM, Drug [place] 00 Form: INJ, PRN, PRN Blood Glucose Results, Start date: 01/14/11 19:22:00, Duration: 30 day, Stop date: 02/13/11 19:21:00 Saline 2010-04 No [place] 5 ml, Memoria Flush 0.9% 0-04 Minhvu Victroiano Route: l 00:21: [place] IVP, Drug Jona 00 Form: INJ, PRN, PRN Line Flush, Start date: 01/14/11 19:21:00, Duration: 30 day, Stop date: 02/13/11 19:20:00 nitroglycer 2010-04 No [place] 0.4 mg, 1 Memoria in SL Tab 0-04 Minhvu Victoriano tab, l 00:21: [place] Route: SL, [place] 00 Drug form: TAB, Q5Min, PRN Chest [...] Victoriano tab, l 00:21: [place] Route: PO, [place] 00 Drug form: TAB, Q8H, PRN Nausea [...] Q4-6H, l one 500 18:32: PRN, 20 [place] mg-5 mg 50 tab, Pain, oral tablet [...] Diastolic (mm Hg) 2017-02-26 06:50:00 Mem orial [place] Respitory Rate 2017-02-26 06:50:00 Memori al Jona Temperature Oral (F) 2017-02-26 06:50:00 97.6 F [facility] [place] Heart Rate 2017-02-26 06:50:00 [facility] [place] Respitory Rate 2017-02-26 04:30:00 Memori al Jona Systolic (mm Hg) 2017-02-26 04:30:00 Nirmal rial Jona Diastolic (mm Hg) 2017-02-26 04:30:00 Mem orial [place] Heart Rate 2017-02-26 04:30:00 [facility] Jona Temperature Oral (F) 2017-02-26 00:55:00 98.8 F [facility] [place] Weight 2017-02-26 00:55:00 [facility] [place] BMI Calculated 2017-02-26 00:55:00 Memori al Jona Height 2017-02-26 00:55:00 162.56 cm [facility] [place] Systolic (mm Hg) 2017-02-26 00:55:00 Nirmal rial [place] Diastolic (mm Hg) 2017-02-26 00:55:00 Mem orial Jona Heart Rate 2017-02-26 00:55:00 [facility] [place] Respitory Rate 2017-02-26 00:55:00 Memori al Jona Respitory Rate 2017-02-25 07:35:00 Memori al [place] Systolic (mm Hg) 2017-02-25 07:35:00 Nirmal rial Jona Diastolic (mm Hg) 2017-02-25 07:35:00 Mem orial Jona Temperature Oral (F) 2017-02-25 07:35:00 98.2 F [facility] [place] Heart Rate 2017-02-25 07:35:00 [facility] [place] BMI Calculated 2017-02-25 05:05:00 Memori al Jona Weight 2017-02-25 05:05:00 [facility] [place] Height 2017-02-25 05:05:00 162.56 cm [facility] [place] Heart Rate 2017-02-25 05:05:00 [facility] [place] Respitory Rate 2017-02-25 05:05:00 Memori al Jona Temperature Oral (F) 2017-02-25 05:05:00 97.8 F [facility] [place] Systolic (mm Hg) 2017-02-25 05:05:00 Nirmal rial [place] Diastolic (mm Hg) 2017-02-25 05:05:00 Mem orial Jona Weight 2017-02-25 04:55:00 [facility] Height 2017-02-25 04:55:00 167.64 cm [facility] [place] Temperature Oral (F) 2017-02-25 04:55:00 97.8 F [facility] BMI Calculated 2017-02-25 04:55:00 [facility] [place] Systolic (mm Hg) 2017-02-25 04:55:00 [facility] Diastolic (mm Hg) 2017-02-25 04:55:00 [facility] Respitory Rate 2017-02-25 04:55:00 [facility] [place] Heart Rate 2017-02-25 04:55:00 [facility] Temperature Oral (F) 2017-01-26 16:47:00 98.5 F [facility] [place] Heart Rate 2017-01-26 16:47:00 [facility] [place] Respitory Rate 2017-01-26 16:47:00 [facility] [place] Systolic (mm Hg) 2017-01-26 16:47:00 [facility] Diastolic (mm Hg) 2017-01-26 16:47:00 [facility] [place] Heart Rate 2017-01-26 12:26:00 [facility] [place] Respitory Rate 2017-01-26 12:26:00 [facility] [place] Temperature Oral (F) 2017-01-26 12:26:00 98.4 F [facility] Systolic (mm Hg) 2017-01-26 12:26:00 [facility] [place] Diastolic (mm Hg) 2017-01-26 12:26:00 [facility] Temperature Oral (F) 2017-01-26 09:50:00 98.1 F [facility] Heart Rate 2017-01-26 09:50:00 [facility] Systolic (mm Hg) 2017-01-26 09:50:00 [facility] Diastolic (mm Hg) 2017-01-26 09:50:00 [facility] Respitory Rate 2017-01-26 09:50:00 [facility] Height 2017-01-25 05:58:00 157.48 cm [facility] Weight 2017-01-25 05:58:00 [facility] BMI Calculated 2017-01-25 05:58:00 [facility] [place] Weight 2017-01-25 02:01:00 [facility] BMI Calculated 2017-01-25 02:01:00 [facility] Height 2017-01-25 02:01:00 162.56 cm [facility] Systolic (mm Hg) 2016-12-27 06:03:00 [facility] [place] Diastolic (mm Hg) 2016-12-27 06:03:00 [facility] Respitory Rate 2016-12-27 06:03:00 [facility] [place] Heart Rate 2016-12-27 06:03:00 [facility] Temperature Oral (F) 2016-12-27 06:03:00 98.3 F [facility] Temperature Oral (F) 2016-12-27 04:22:00 98.4 F [facility] Respitory Rate 2016-12-27 04:22:00 [facility] [place] Systolic (mm Hg) 2016-12-27 04:22:00 [facility] Diastolic (mm Hg) 2016-12-27 04:22:00 [facility] BMI Calculated 2016-12-27 04:22:00 [facility] [place] Weight 2016-12-27 04:22:00 [facility] Heart Rate 2016-12-27 04:22:00 [facility] Height 2016-12-27 04:22:00 162.56 cm [facility] Height 2012-02-06 15:19:00 162.56 cm [facility] Weight 2012-02-06 15:19:00 [facility] Height 2011-11-29 02:35:00 162.56 cm [facility] Weight 2011-11-29 02:35:00 [facility] Height 2011-10-25 02:45:00 162.56 cm [facility] Weight 2011-10-25 02:45:00 [facility] Height 2011-05-23 04:48:00 162.56 cm [facility] Weight 2011-05-23 04:48:00 [facility] Temperature Oral (F) 2011-05-08 02:38:00 98.5 F [facility] [place] Diastolic (mm Hg) 2011-05-08 02:38:00 [facility] Systolic (mm Hg) 2011-05-08 02:38:00 [facility] Heart Rate 2011-05-08 02:38:00 [facility] Respitory Rate 2011-05-08 02:38:00 [facility] [place] Weight 2011-05-08 00:09:00 [facility] Height 2011-05-08 00:09:00 162.56 cm [facility] Temperature Oral (F) 2011-05-08 00:09:00 98.6 F [facility] Diastolic (mm Hg) 2011-05-08 00:09:00 [facility] [place] Systolic (mm Hg) 2011-05-08 00:09:00 [facility] Heart Rate 2011-05-08 00:09:00 [facility] Respitory Rate 2011-05-08 00:09:00 [facility] Respitory Rate 2011-04-20 07:05:00 [facility] [place] Heart Rate 2011-04-20 07:05:00 [facility] Diastolic (mm Hg) 2011-04-20 07:05:00 [facility] Systolic (mm Hg) 2011-04-20 07:05:00 [facility] Diastolic (mm Hg) 2011-04-20 06:01:00 [facility] Heart Rate 2011-04-20 06:01:00 [facility] Systolic (mm Hg) 2011-04-20 06:01:00 [facility] Respitory Rate 2011-04-20 06:01:00 [facility] Weight 2011-04-20 02:25:00 [facility] Systolic (mm Hg) 2011-04-20 02:25:00 [facility] Temperature Oral (F) 2011-04-20 02:25:00 98.0 F [facility] Respitory Rate 2011-04-20 02:25:00 [facility] Heart Rate 2011-04-20 02:25:00 [facility] Diastolic (mm Hg) 2011-04-20 02:25:00 [facility] Temperature Oral (F) 2011-03-26 06:05:00 98.0 F [facility] [place] Respitory Rate 2011-03-26 06:05:00 [facility] [place] Heart Rate 2011-03-26 06:05:00 [facility] Systolic (mm Hg) 2011-03-26 06:05:00 [facility] Diastolic (mm Hg) 2011-03-26 06:05:00 [facility] [place] Height 2011-03-26 01:58:00 160.02 cm [facility] Weight 2011-03-26 01:58:00 [facility] Temperature Oral (F) 2011-03-26 01:58:00 99.0 F [facility] [place] Diastolic (mm Hg) 2011-03-26 01:58:00 [facility] [place] Systolic (mm Hg) 2011-03-26 01:58:00 [facility] [place] Respitory Rate 2011-03-26 01:58:00 [facility] [place] Heart Rate 2011-03-26 01:58:00 [facility] Diastolic (mm Hg) 2011-02-11 15:37:00 [facility] Respitory Rate 2011-02-11 15:37:00 [facility] Systolic (mm Hg) 2011-02-11 15:37:00 [facility] Heart Rate 2011-02-11 15:37:00 [facility] Temperature Oral (F) 2011-02-11 15:37:00 98.1 F [facility] [place] Diastolic (mm Hg) 2011-02-11 11:53:00 [facility] Systolic (mm Hg) 2011-02-11 11:53:00 [facility] Temperature Oral (F) 2011-02-11 11:53:00 97.5 F [facility] [place] Heart Rate 2011-02-11 11:53:00 [facility] Respitory Rate 2011-02-11 11:53:00 [facility] [place] Height 2011-02-11 07:38:00 162.56 cm [facility] Weight 2011-02-11 07:38:00 [facility] Respitory Rate 2011-02-11 07:38:00 [facility] [place] Temperature Oral (F) 2011-02-11 07:38:00 98.0 F [facility] Heart Rate 2011-02-11 07:38:00 [facility] Systolic (mm Hg) 2011-02-11 07:38:00 [facility] [place] Diastolic (mm Hg) 2011-02-11 07:38:00 [facility] Weight 2011-02-11 02:32:00 [facility] Height 2011-02-11 02:32:00 162.56 cm [facility] Diastolic (mm Hg) 2011-01-15 16:44:00 [facility] [place] Systolic (mm Hg) 2011-01-15 16:44:00 [facility] [place] Temperature Oral (F) 2011-01-15 16:44:00 97.0 F [facility] Heart Rate 2011-01-15 16:44:00 [facility] Respitory Rate 2011-01-15 16:44:00 [facility] Temperature Oral (F) 2011-01-15 12:18:00 97.2 F [facility] Respitory Rate 2011-01-15 12:18:00 [facility] Heart Rate 2011-01-15 12:18:00 [facility] Diastolic (mm Hg) 2011-01-15 12:18:00 [facility] [place] Systolic (mm Hg) 2011-01-15 12:18:00 [facility] [place] Respitory Rate 2011-01-15 09:30:00 [facility] [place] Systolic (mm Hg) 2011-01-15 09:30:00 [facility] Heart Rate 2011-01-15 09:30:00 [facility] Temperature Oral (F) 2011-01-15 09:30:00 97.9 F [facility] Diastolic (mm Hg) 2011-01-15 09:30:00 [facility] Height 2011-01-15 01:35:00 162.56 cm [facility] Weight 2011-01-15 01:35:00 [facility] Height 2011-01-14 20:07:00 162.56 cm [facility] Weight 2011-01-14 20:07:00 [facility] Systolic (mm Hg) 2010-12-22 18:51:00 [facility] Diastolic (mm Hg) 2010-12-22 18:51:00 [facility] Peripheral Pulse Rate 2010-12-22 18:51:00 [facility] Respitory Rate 2010-12-22 18:51:00 [facility] [place] Height 2010-12-22 16:57:00 162.56 cm [facility] Weight 2010-12-22 16:57:00 [facility] Temperature Oral (F) 2010-12-22 16:57:00 98.2 F [facility] Respitory Rate 2010-12-22 16:57:00 [facility] [place] Peripheral Pulse Rate 2010-12-22 16:57:00 [facility] Diastolic (mm Hg) 2010-12-22 16:57:00 [facility] Systolic (mm Hg) 2010-12-22 16:57:00 [facility] Procedures Procedure Date / Time Performed Performing Clinician Aguila hawkins Appendectomy [facility] Cholecystectomy [facility] Partial [facility] Encounters Start End Encounter Admission Attending Care Care Encounter Source Date/Time Date/Time Type Type Clinicians Facility Department ID 2018-11-26 2018-11-26 Emergency [facility] [id number] 11:32:46 15:11:00 Edgard Medley [id number] [place] [id number] [place] [id number] 2018-11-26 2018-11-26 Orders Doctor RASHID [id number] 00:00:00 00:00:00 Only Unassigned, [place] [id number] [place] [facility] [id number] 2017-02-25 2017-02-26 Outpatient Pilar, 2.16.840. 2.16.840.1. 4 [id number] 18:38:00 00:55:00 Rudolph [id number] 03 Mate[place] 3.615.120 5.120 2017-02-24 2017-02-25 Outpatient Quezada, 2.16.840. 2.16.840.1. 4 [id number] 22:49:00 01:35:00 Rudolph [id number] 02 Mateo 3.615.120 5.120 2017-01-24 2017-01-26 Outpatient Kayla, 2.16.840. 2.16.840.1 . [id number] 20:53:00 14:35:00 Greg Mack [id number] 5.120 2016-12-26 2016-12-27 Outpatient Davis, 2.16.840. 2.16.840.1. 4 [id number] 23:03:00 01:05:00 Moise Rojas [id number] 00 3.615.120 5.120 Results Test Description Test Time Test Comments Results Result Comments Source POCT-GLUCOSE METER 2017-10-07 11:53:00 Test Item Value Reference Range Interpretation Comme nts POC-GLUCOSE METER ([employer]) (test 277 mg/dL 70-110 H TESTED AT [address] POINT code = 1538) [facility] [address] POCT-GLUCOSE [id number] 11:53:00 Test Item Value Reference Range Interpretation Comments POC-GLUCOSE METER 411 mg/dL 70-110 HH TESTED AT [address] ([facility]) (test code [facility] = 1538) [address] RAD, SPINE, CERVICAL, 2 OR 3 [id number] 23:46:00Reason for exam:->neck painFINAL REPORT RAD, SPINE, [...] MDRchulaort Verified Date/Time: 10/06/2017 23:46:30 Reading Location: [address] Transitional Reading Room CT, SPINE, CERVICAL, [...] Grayson Verified Date/Time: 10/06/2017 23:44:40 Reading Location: [address] Transitional Reading Room CT, BRAIN, WITHOUT [...] MDReport Verified Date/Time: 10/06/2017 23:24:44 Reading Location: [address] Reading Room TROPONIN I 2017-10-06 22:56:00 [...] acute neurological disease, and persistent tachyarrhythmia.COMPREHENSIVE METABOLIC [id number] 22:50:00 Test Item Value Reference Range Interpretation [...] S NOT APPLICABLE FOR DIALYSIS PATIEN TS. [id number] 22:42:00 Test Item Value Reference Range Interpretation Comments AMYLASE (BEAKER) (test code = 349) 58 U/L 30-110 CBC W/PLT COUNT & AUTO [id number] 22:22:00 Test Item Value Reference Range Interpretation [...] 0.00-0.20 (test code = 417) URINALYSIS W/ [id number] 22:09:00 Test Item Value Reference Range Interpretation [...] 1663) SOURCE(BEAKER) (test code = 2795) POCT-GLUCOSE [id number] 07:19:00 Test Item Value Reference Range Interpretation Comments POC-GLUCOSE METER 241 mg/dL 70-110 H TESTED AT [address] (BEAKER) (test code [facility] [place] = 1538) [address] CT, [id number] 19:16:00FINAL REPORT CT OF THE ABDOMEN AND [...] MDReport Verified Date/Time: 09/22/2017 19:16:29 Reading Location: [facility] C013W Consult Reading Room BASIC METABOLIC [id number] 17:37:00 Test Item Value Reference Range Interpretation [...] NOT APPLICABLE FOR DIALYSIS PATIEN TS. TROPONIN [id number] 17:07:00 Test Item Value Reference Range Interpretation [...] (test code = 749) 26 U/L 6-51 [id number] 16:51:00 Test Item Value Reference Range Interpretation Comments AMYLASE (BEAKER) (test 32 U/L 30-110 Speci men markedly code = 349) hemolyzed URINALYSIS W/ [id number] 16:21:00 Test Item Value Reference Range Interpretation [...] = 2795) CBC W/PLT COUNT & AUTO [id number] 16:15:00 Test Item Value Reference Range Interpretation [...] L 0.00-0.20 (test code = 417) POCT-GLUCOSE [id number] 15:36:00 Test Item Value Reference Range Interpretation Comments POC-GLUCOSE METER 284 mg/dL 70-110 H TESTED AT [address] ([facility]) (test code [address] [facility] [place] = 1538) [address] CT, [id number] 15:32:00Reason for exam:->LLQ ABD PAINIs the patient [...] MDReport Verified Date/Time: 07/07/2017 15:32:20 Reading Location: [facility] C013Y CT Body Reading Room LIPASE 2017-07-07 14:41:00 Test Item Value Reference Range Interpretation Comments LIPASE (BEAKER) (test code = 749) 32 U/L 6-51 COMPREHENSIVE METABOLIC [id number] 14:40:00 Test Item Value Reference Range Interpretation [...] NOT APPLICABLE FOR DIALYSIS PATIEN TS. POCT-GLUCOSE [id number] 14:10:00 Test Item Value Reference Range Interpretation Comments POC-GLUCOSE METER 352 mg/dL 70-110 H TESTED AT [address] (BEAKER) (test code [address] [facility] [place] = 1538) [address] CBC W/PLT COUNT & AUTO [id number] 13:30:00 Test Item Value Reference Range Interpretation [...] 0.00-0.20 (test code = 417) URINALYSIS W/ [id number] 13:01:00 Test Item Value Reference Range Interpretation [...] 1663) SOURCE(BEAKER) (test code = 2795) KETONE, [id number] 12:58:00 Test Item Value Reference Range Interpretation Comments KETONES, BLOOD (BEAKER) (test code 0.1 mmol/L <0.4 = 1103) BLOOD GAS, [id number] 12:48:00 Test Item Value Reference Range Interpretation [...] (test code = 1819) 37.0 % POCT-GLUCOSE [id number] 12:04:00 Test Item Value Reference Range Interpretation Comments POC-GLUCOSE METER > mg/dL 70-110 HH OUTSIDE ME ASURING (BEAKER) (test code [facility] 1317 = 1538) [facility] [address] BACTERIAL - [id number] 03:02:00Negative (02/25/17 9:02 PM)[facility] [id number] 03:02:00 Test Item Value Reference Range Interpretation Comments Tube Num CSF (test code = Tube Num CSF) 1 1 [facility] [id number] 03:02:00Clear (02/25/17 9:02 PM)[facility] [id number] 03:02:00Colorless (02/25/17 9:02 PM)[facility] [id number] 03:02:00Colorless (02/25/17 9:02 PM)[facility] [id number] 03:02:002[facility] [id number] 03:02:001[facility] TLEUJN0159-06-78 03:02:001[facility] [id number] 03:02:002[facility] PBBOGM2686-06-05 03:02:00 Colorless (02/25/17 9:02 PM)[facility] [id number] 03:02:00Clear (02/25/17 9:02 PM)[facility] [id number] 03:02:00 Test Item Value Reference Range Interpretation Comments Tube Num CSF (test code = Tube Num CSF) 4 1 [facility] [id number] 03:02:00Colorless (02/25/17 9:02 PM) [facility] HLELUJ2637-95-73 03:02:71405Kjcbitoz HermannB[facility] FLUIDS 2017-02-26 03:02:0055[facility]annFUNGAL - [id number] 03:02:00 Negative (02/25/17 9:02 PM)[facility] TaltjzfBHKMAGTSHR3943-91-25 03:02:00Non Reactive (02/25/17 9:02 PM)[facility]annMOLECULAR RSSZAKDCDG1452-43-21 03:02:00Negative 2(02/25/17 9:02 PM)[facility]annMOLECULAR DIAGNOSTIC 2017-02-26 03:02:00Negative 1(02/25/17 9:02 PM)[facility]ann[facility]IRAL - SEROLOGY 2017-02-26 03:02:00Negative (02/25/17 9:02 PM)[facility]annCHEM PANEL 2017-02-26 01:42:000.9[facility]annCHE[facility] BXJII0613-55-00 01:42:0023[facility]annCHE[facility] IQQJN3705-31-12 01:42:004.3[facility]annCHE[facility] FAFRL6420-78-44 01:42:0011.3[facility] NLTLB2041-54-43 01:42:92741Crhfoevk HermannCHEM QIOME6737-90-29 01:42:000.3[facility]annCHE[facility] LQKTZ5148-05-09 01:42:0016 [facility] NENCZ2406-96-98 01:42:0017[facility]annCHEM PANEL 2017-02-26 01:42:008.2[facility]CHE[facility] GXRAE1502-82-74 01:42:004.3[facility] XPITG1525-56-76 01:42:68243Xobndnof HermannCHEM FNOKL2173-97-95 01:42:000.70[facility]annCHE[facility] KLAQE8207-50-35 01:42:43275Pkyvlfhg HermannCHE[facility] ZMHQO5569-39-15 01:42:008.9[facility]annCHE[facility] NGLDG8728-64-40 01:42:0097 [facility] YFLSX9995-50-70 01:42:0026[facility]annCHEM PANEL 2017-02-26 01:42:28707Heriyghp HermannCHEM EVAYE5363-78-09 01:42:0016[facility]annCHE[facility] DJZJM6094-44-93 01:42:003.9[facility]annCHE[facility] EUKFM4950-12-28 01:42:001.8[facility] AilbdbsAIRKSYFCCU9415-58-21 01:42:84552Yncfpwpo [place] YSVKBVYFCE9096-06-96 01:42:0082.2[facility] OgevresQPOXRMECYL3716-13-99 01:42:00 37.1[facility] TooaashVABSJDMBDW1970-28-27 01:42:007.4[facility] HermannHEMATOLOGY 2017-02-26 01:42:0014.1[facility] SdegswcUNQUVYRAZZ0645-39-20 01:42:00 Test Item Value Reference Range Interpretation Comments MCH (test code = MCH) 27.6 pg 27.0-31.0 [facility] JryrevsXAUKZWEYCS0744-85-07 01:42:0033.6[facility]annHEMATOLOGY 2017-02-26 01:42:004.52[facility] EkoqoshSUEBTTNLDG9310-79-15 01:42:0012.5[facility] RfwptjfBGATAYMKWW4111-60-40 01:42:007.1[facility] RkaplshJPHEQNRMGT6126-41-74 01:42:000.8[facility] VlucejsDFOMZPQSII6616-69-88 01:42:002.8[facility] [place] SMPCHAYNKA7762-07-33 01:42:003.8[facility] MbrfjtqDEMRZKBQMF7798-86-35 01:42:000.4 [facility] ShxnadkESKVMMIDUZ6042-97-77 01:42:0053.4[facility] HermannHEMATOLOGY 2017-02-26 01:42:0039.1[facility] AualrvcSYQXIONUQP3209-67-71 01:42:001.4[facility] PcpohxkHIHCNFEMDZ2682-62-15 01:42:005.3[facility] FtmujujHBXDRKVFGY3769-00-16 01:42:000.1[facility] WtafmytZXBCBMGTCQ9920-76-20 01:42:000.1[facility]annURINE AND GHTYW8086-38-68 01:42:000.2[facility] AND AHVRJ4315-90-43 01:42:00Negative (02/25/17 7:42 PM)[facility] [id number] 01:42:00Negative *NA*(02/25/17 7:42 PM)[facility] HXUOV3415-92-67 01:42:00Negative *NA*(02/25/17 7:42 PM)[facility] UUWBU2523-03-43 01:42:00Negative (02/25/17 7:42 PM)[facility] DFPTG9327-91-46 01:42:00Negative (02/25/17 7:42 PM)[facility] ESBZS5982-83-01 01:42:00Negative (02/25/17 7:42 PM)[facility] [id number] 01:42:00 Test Item Value Reference Range Interpretation Comments UA pH (test code = UA pH) 6.0 1 5.0-8.0 [facility] [id number] 01:42:00 Test Item Value Reference Range Interpretation Comments UA Spec Grav (test code = UA Spec 1.010 1 Grav) [facility] [id number] 01:42:00Yellow *NA*(02/25/17 7:42 PM) [facility] KMQQO7345-28-86 01:42:00Slight Cloudy (02/25/17 7:42 PM)[facility]annVIRAL - TVIKMNOF4235-81-80 01:42:00Negative (02/25/17 7:42 PM)[facility]annVIRAL - JMFKFUHZ8781-46-43 01:42:00Negative (02/25/17 7:42 PM)[facility]annCHEM ALRKC8673-10-57 09:02:45003Hiwxordu HermannCHEM PANEL 2017-01-26 09:02:000.2[facility]annCHEM LTTUQ5979-16-30 09:02:12052Cskwszzs HermannCHEM CDMKZ2457-42-42 09:02:0012[facility]annCHEM XIPFA0324-13-26 09:02:003.3[facility]annCHEM ERFPQ5881-06-58 09:02:002.4[facility]annCHEM TRBKG4573-54-32 09:02:005.7[facility]annCHEM MPBXO3565-49-83 09:02:009.7 [facility]annCHE[facility] RXCFQ4127-18-82 09:02:49332Ppzspxqs HermannCHEM PANEL 2017-01-26 09:02:007.4[facility] HermannCHEM EHZYV3703-59-34 09:02:000.7[facility]annCHEM IECOA4853-78-94 09:02:000.40[facility]annCHEM SCICG7320-35-20 09:02:005[facility]annCHEM TWRHD1393-35-20 09:02:0037[facility]annCHEM QDGDD5565-24-52 09:02:0044[facility]annCHEM WAEVI2934-27-04 09:02:003.7 [facility]annCHEM BBIGA6164-96-37 09:02:89983Kpjaamhy HermannCHEM PANEL 2017-01-26 09:02:0025[facility]annCHEM LXFZH4247-44-68 09:02:73523Qbsurgdi HermannCARDIAC IPEBYWE0313-45-75 22:26:00<0.02[facility] HermannPARATHYROID IHUEMHE5040-38-60 22:26:000.99[facility] HermannPARATHYROID YCNKWUF3060-05-18 22:26:001.01[facility]annCHEM WLMDO6208-28-37 20:00:002.6[facility]annCHEM RUUAK2787-38-46 20:00:71204Kqrsumiu HermannCHEM XGLGK4295-41-94 20:00:000.50 [facility]annCHE[facility] VNMCZ8799-79-31 20:00:12882Vurhdpqq HermannCHEM PANEL 2017-01-25 20:00:003.6[facility]annCHEM URRRT4248-20-78 20:00:0025[facility]annCHEM YMZOL4676-85-32 20:00:85464Kysdxbsf HermannCHEM TYBDB4540-42-50 20:00:008.6[facility]annCHEM QMBCE0811-44-20 20:00:006.9[facility] HermannCHEM WDZFL5386-38-75 20:00:81873Zqbtzvgn HermannCHEM DOHHI9029-73-94 20:00:008 [facility]annCHE[facility] XATVB0298-15-20 08:54:002.7[facility] HermannCHEM PANEL 2017-01-25 08:54:70526Qbtbatgr HermannCHEM OGLIU8816-68-56 08:54:000.60[facility] HermannCHEM GMNZP5432-61-45 08:54:009[facility] HermannCHEM RASNW7846-99-28 08:54:15232Svwrsgah HermannCHEM TKYIJ6496-90-69 08:54:0012.5[facility] HermannCHEM OFYUA1561-51-83 08:54:003.5[facility] HermannCHEM BNCJT5714-46-94 08:54:91815 [facility]annCHEM GDEDC4127-31-67 08:54:0023[facility] HermannCHEM PANEL 2017-01-25 08:54:007.1[facility] HermannCHEM OKUSO8144-80-67 08:54:27578Zieacaac HermannCHEM UZSCW3878-19-94 08:54:001.7[facility] NnxttwiFKDAZUJRHZ2653-71-60 08:54:007.4[facility] SchazpdARLZWGTEGP3040-91-21 08:54:0013.6[facility] FZNHFPSGAN4992-83-87 08:54:01039Dehxzrfa RwmuxyzPBNJDZKLPB5260-07-34 08:54:00 33.4[facility] JoonuoeHRAIHWUDJT4048-74-17 08:54:0082.5[facility] HermannHEMATOLOGY 2017-01-25 08:54:00 Test Item Value Reference Range Interpretation Comments MCH (test code = MCH) 27.6 pg 27.0-31.0 [facility] JjuvcfmVQZOAXQWZC2346-54-75 08:54:0010.7[facility] HermannHEMATOLOGY 2017-01-25 08:54:0032.0[facility] KaxpoinPMUAAONUZL1027-00-22 08:54:005.5[facility] YobnbknYFVDZCFMJF9414-26-21 08:54:003.88[facility] BskaamhQAVSCNFBXS8420-18-65 08:54:007.2[facility] OqbkvqxMXETYGYMKU9956-24-07 08:54:000.4[facility] [place] EKXHDFGSZA2692-41-56 08:54:003.0[facility] HqwsfdrFLRUBOJCIX9027-09-63 08:54:002.0 [facility] CpblvueDFLBBPFUBH4554-65-50 08:54:000.9[facility] HermannHEMATOLOGY 2017-01-25 08:54:000.6[facility] KruyjxpGPEVXMUJLW7106-42-26 08:54:0036.3[facility] PoirmtkZJUKGAQRDJ3497-50-40 08:54:0055.0[facility]annURINE AND STOOL 2017-01-25 04:54:00Negative (01/24/17 11:54 PM)[facility] STOOL 2017-01-25 04:54:00Positive *ABN*(01/24/17 11:54 PM)[facility] ZGPIN7409-84-05 04:54:00Negative (01/24/17 11:54 PM)[facility] DBVBM9166-23-41 04:54:00Negative *NA*(01/24/17 11:54 PM)[facility] XTOCP4269-24-53 04:54:00Negative (01/24/17 11:54 PM)[facility] AMEBR5323-67-09 04:54:000.2[facility] NNIXN8381-32-43 04:54:00Negative *NA*(01/24/17 11:54 PM)[facility] STOOL 2017-01-25 04:54:00 Test Item Value Reference Range Interpretation Comments UA pH (test code = UA pH) 5.5 1 5.0-8.0 [facility] SQQCZ7198-05-21 04:54:00<=1.005 *NA*(01/24/17 11:54 PM)[facility] OKATC9173-45-17 04:54:00Yellow *NA*(01/24/17 11:54 PM)[facility] WABZU2947-06-54 04:54:00Clear (01/24/17 11:54 PM) [facility] MHNQMPM2407-08-09 02:44:0062[facility] QHMQZAU3543-13-35 02:44:00<1.0[facility] ROHVXMH1426-45-14 02:44:00<0.02[facility] JSHSNBG3334-21-73 02:44:00<1.6 [facility]CHE[facility] BFQTS9108-51-00 02:44:0014[facility]annCHE[facility] PANEL 2017-01-25 02:44:000.5[facility]CHE[facility] VXKWQ9397-65-18 02:44:0037[facility]annCHE[facility] FEXAT3879-79-63 02:44:08829Nntbvucb HermannCHEM GLNAB8061-71-12 02:44:000.7[facility]annCHE[facility] RDCHR9679-44-79 02:44:004.7[facility] MYZCA3787-26-07 02:44:003.5[facility]annCHE[facility] GJEZC5644-08-30 02:44:0016 [facility] XNSNV0902-04-26 02:44:008.2[facility]annCHE[facility] PANEL 2017-01-25 02:44:18417Mnugydnl BexbzvlDJITWFYTHP2403-52-95 02:44:0013.7[facility] LqcmsifHWJETWOSTJ9100-17-75 02:44:0041.6[facility] VkdxbmmOXKCAARWDH8987-76-96 02:44:0083.6[facility] LynzelrWYSPTIKRUY2840-71-10 02:44:00 Test Item Value Reference Range Interpretation Comments MCH (test code = MCH) 27.5 pg 27.0-31.0 [facility] JmxbclzRXIACIDOMM6929-93-24 02:44:0032.9[facility]annHEMATOLOGY 2017-01-25 02:44:0013.6[facility] ZqetbnuWMKNFUOKUM1302-04-47 02:44:12594Ttoljnww RpecyrfIWQYKSGNSN7980-72-10 02:44:008.1[facility] FgbxrmmHLOUOGUFCJ1293-22-40 02:44:005.8[facility] RvjsujcTMKRXXXVIW1740-21-30 02:44:004.97[facility] [place] ZGMYYAAAER8923-88-91 02:44:000.4[facility] YqseeumJWAMYHDTWV4542-19-79 02:44:000.7 [facility] IndmudfFLVDUGXMHY5488-85-76 02:44:003.5[facility]annHEMATOLOGY 2017-01-25 02:44:007.1[facility] GtilhdrBHNAXRVUSZ3286-11-92 02:44:000.6[facility] IjzbvewRLNAWKZSEU1817-02-00 02:44:001.8[facility] IyaebooBRWYDIQSVQ2990-43-54 02:44:0059.9[facility] HukxirdQWPMLWHYBZ6229-71-65 02:44:0031.7[facility] [place] URINE PGVWQHP4073-88-07 09:22:00 Test Item Value Reference Range Interpretation [...] S Sulfamethoxazole (test code = 47) POCT-GLUCOSE [id number] 23:15:00 Test Item Value Reference Range Interpretation Comments POC-GLUCOSE METER 227 mg/dL 70-110 H TESTED AT [facility] [address] (BEAKER) (test code [address] [facility] [place] = 1538) [address] URINALYSIS W/ LDTDBCFFFVR5517-21-41 22:36:00 Test Item Value Reference Range Interpretation [...] 1663) SOURCE(BEAKER) (test code = 2795) KETONE, [id number] 22:32:00 Test Item Value Reference Range Interpretation Comments KETONES, BLOOD (BEAKER) (test code 0.6 mmol/L <0.4 H = 1103) BLOOD GAS, [id number] 22:30:00 Test Item Value Reference Range Interpretation [...] (test code = 1819) 21.0 % SCREEN, [id number] 22:29:00 Test Item Value Reference Range Interpretation Comments TEST URINE (BEAKER) (test Negative code = 583) TROPONIN [id number] 21:42:00 Test Item Value Reference Range Interpretation [...] CK-MB Reference Range:<5 Normal5-10 Borderline>10 AbnormalCOMPREHENSIVE METABOLIC QLRNN0502-84-70 21:34:00 Test Item Value Reference Range Interpretation [...] S NOT APPLICABLE FOR DIALYSIS PATIEN TS. [id number] 21:32:00 Test Item Value Reference Range Interpretation Comments LIPASE (BEAKER) (test code = 749) 28 U/L 6-51 CBC W/PLT COUNT & AUTO YCVHVODJAACT8932-52-43 20:55:00 Test Item Value Reference Range Interpretation [...] L 0.00-0.20 (test code = 417) POCT-GLUCOSE JXHOU7941-99-06 20:56:00 Test Item Value Reference Range Interpretation Comments POC-GLUCOSE METER 446 mg/dL 70-110 Notified R Diana DALTON/TESTED AT (BEAKER) (test code SLSL [address] [place] = [address]) [address] [facility] [address] BEDSIDE GLUCOSE YBQXIMM1729-54-11 15:13:86249Iihqkhog HermannBEDSIDE GLUCOSE GNLYZBG8978-80-03 04:18:70982Erlmcqjw EqbwpnsMDPZMJAVL8527-60-33 03:05:000.14 [facility] NhslqalOJPNZONVO1497-39-36 03:05:008[facility] NmxzzqcAYTIUCKRC7449-31-22 03:05:000.2[facility] GqqhrrqMMWOYXDQQ3354-23-38 03:05:0027[facility] UWVTMUJVA4124-83-90 03:05:0013.2[facility] RcmormnVFCMWYYFG0977-67-37 03:05:008.8 [facility] StlvwxpDQRZHYPGB0524-06-71 03:05:007.6[facility] HermannCHEMISTRY 2011-11-29 03:05:0016[facility] QnjiwofNYUFQFQPS7694-44-57 03:05:003.8[facility] ZqzzhdrDBYMSPQOH9490-00-30 03:05:003.8[facility] ZwjwlspYPVDXRCSY8872-80-16 03:05:001.0[facility] EtjdybwVBVNLMLFE2146-64-06 03:05:46558Ptgkbetp [facility] ZKDEHONDN5620-02-68 03:05:0013[facility] GorsnqnSEXTSVUAI0962-84-83 03:05:25919 [facility] PoyikfqUKRPERJRO8740-45-12 03:05:0098[facility] HermannCHEMISTRY 2011-11-29 03:05:000.7[facility] FuzxgcmAUHWASQWA4439-90-03 03:05:0011[facility] QsophfzVEDNKEVSD0551-94-91 03:05:004.2[facility] TdilnnsMTHHGUMUI6438-46-70 03:05:45656Rkaxqzei HkdrwykKKMYZKMUWZ1700-61-39 03:05:004.41[facility] KRYEIAKULN5563-20-47 03:05:005.7[facility] JnggsfoGRFQCGKSFO1933-59-77 03:05:00 33.2[facility] QdwmlctKNKRQRRUTL3259-67-44 03:05:0012.9[facility] HermannHEMATOLOGY 2011-11-29 03:05:0013.8[facility] EolxhygRVGMPQNGOU8656-01-54 03:05:0088.4[facility] KmzquqkIWHZWRIIUN5585-26-73 03:05:00 Test Item Value Reference Range Interpretation Comments MCH (test code = MCH) 29.3 pg 27.0-31.0 N [facility] OwhpjxlZMCYCQYXQC0700-22-95 03:05:0038.9[facility] HermannHEMATOLOGY 2011-11-29 03:05:007.5[facility] EejlthxRANLHKJWHW1056-87-75 03:05:36694Nmgaoisg GfygulsZWQMAEGCFA2572-89-49 03:05:0057.5[facility] YaxvwluVUSQOJGVWF4066-30-74 03:05:000.5[facility] PhtnzcjACKSTWQHCC3262-33-02 03:05:001.5[facility] CIGIABRBOU0465-07-31 03:05:005.3[facility] EqyerpwVOQFPPOKWF0413-00-63 03:05:00 35.2[facility] HxwjxctZCZQIMLTTL5728-79-08 03:05:002.0[facility] HermannHEMATOLOGY 2011-11-29 03:05:003.3[facility] GohxkcuPMEAJRWCWF7555-21-47 03:05:000.1[facility] QrinmygEWPTZEJKOE4459-22-98 03:05:000.3[facility] HzslvgxHRQMQEABEY3802-64-89 03:05:000.0[facility] CwqcgzaEXGAWSHHNB3551-61-83 03:05:00 Test Item Value Reference Range Interpretation Comments UA Spec Grav (test code = UA Spec 1.010 1 N Grav) [facility] MqpexbmGUWLCKEXTL6394-12-14 03:05:00 Test Item Value Reference Range Interpretation Comments UA pH (test code = UA pH) 5.5 1 5.0-8.0 N [facility] YqwtmktMCMEHAXXLI7688-28-83 03:05:00Yellow *NA*(11/28/2011 22:05:00) [facility] JqilwopAMGEEZVIYP9194-61-06 03:05:00Clear (11/28/2011 22:05:00)[facility] NhjcggwLOIXHDKAKM3877-48-50 03:05:00Negative (11/28/2011 22:05:00)[facility] NiualrpKSFYDZUFJG8831-84-87 03:05:00Negative (11/28/2011 22:05:00)[facility] KkqibzcMUCTTQWRDQ2752-75-84 03:05:000.2[facility] PuqpmjnBKRYMTXERW3491-61-97 03:05:00>=1000 mg/dL *ABN*(11/28/2011 22:05:00)[facility] HermannURINALYSIS 2011-11-29 03:05:00Negative mg/dL *NA*(11/28/2011 22:05:00)[facility] [place] MHBDOABYUA9752-90-50 03:05:00Negative mg/dL (11/28/2011 22:05:00)[facility] CdswxtbMAHAVGVKYG7916-80-93 03:05:00Negative (11/28/2011 22:05:00)[facility] GwjbpjpGPYQGVYLEQ6817-02-17 03:05:00Negative *NA*(11/28/2011 22:05:00)[facility] SgdruknHLWSISAANL2366-13-63 03:05:00Rare /LPF (11/28/2011 22:05:00)[facility] NubwqykMZRJOUQCWC9359-07-47 03:05:00Occasional /HPF (11/28/2011 22:05:00) [facility] LivyqkhZNCERCDMJW8151-98-00 03:05:000-2 /HPF (11/28/2011 22:05:00) [facility] PpkyplqMXZZZCRCDG2657-50-47 03:05:000-2 /HPF (11/28/2011 22:05:00) [facility] YwdvoycZERMFUTGMN6023-00-88 03:05:00Performed (11/28/2011 22:05:00) [facility] HermannBEDSIDE GLUCOSE VHYXTHJ7055-43-78 02:45:00>400[facility] HermannBEDSIDE GLUCOSE VZPGJZD0394-10-91 06:10:75294Ynhxypit HermannBEDSIDE GLUCOSE NIKGXHL2622-53-61 05:04:0094[facility] HepswaeDRKFEVUWT3936-19-89 03:06:00 72[facility] DmsqwplAAIREFPHN9432-79-60 03:06:0040[facility] HermannCHEMISTRY 2011-10-25 03:06:007.42[facility] IdaxokxRXKRROUPJ1332-48-88 03:06:000.0[facility] PheuuhdEHILEFREE2293-90-83 03:06:00Rm Air (10/24/2011 22:06:00)[facility] VETLXINFS0197-73-65 03:06:0095.0[facility] RylhwezLMOHHHWLF3311-08-38 03:06:001 [facility] GnbgpzmTJIBOVVVX8964-30-70 03:06:0026[facility] HermannCHEMISTRY 2011-10-25 03:05:21894Zevqregx OahxrmhPGLBQEOLS6427-01-47 03:05:13238Wlomeehg VvdspvtDTXXURWZT1597-63-10 03:05:0019[facility] GipboagSJJPXXSUD6621-47-25 03:05:008.4[facility] WbeacmsJOAMUVLDC5172-67-03 03:05:73678Oavnuosw [place] GVVFZYUEH4222-86-33 03:05:34259Myxlytuo QxccrqpMZGAFOIPY6067-41-65 03:05:003.8 [facility] EpwwjyfJPPWJZPQR1924-24-62 03:05:003.7[facility] HermannCHEMISTRY 2011-10-25 03:05:0027[facility] DnkdtoqFRDFKUIEA6638-35-35 03:05:0012.2[facility] OtcmbsuFTDECNUHQ7103-88-55 03:05:004.2[facility] MlfsggxXXCUYIOIL8091-15-44 03:05:000.8[facility] WadwqteHHVVWMWGR7230-48-92 03:05:87941Vloucmfm [place] OZTYYTGVB9545-27-50 03:05:0024[facility] QqkmyhbVWYTEQHUY3953-45-52 03:05:007.5 [facility] GqgvugfJJYCTCEXH5733-39-13 03:05:0010[facility] HermannCHEMISTRY 2011-10-25 03:05:78468Gvmojdcp VyxpkqdNPHZEYDGT1232-58-70 03:05:000.3[facility] XllevttPBTOFDIZJ6275-44-05 03:05:001.0[facility] NlwqiwhBLWMKPKBL3419-29-02 03:05:0017[facility] VjukkdgTEXISLZVJ4562-76-04 03:05:000.22[facility] UUUUIUVSMO5312-07-61 03:05:000.1[facility] RmvwbmoEJCVOIXIPU0069-52-57 03:05:002.0 [facility] UxbptdxGHKOURSTDG0890-49-82 03:05:000.0[facility] HermannHEMATOLOGY 2011-10-25 03:05:000.4[facility] WqkkqcyPJWLYHYUJX2232-54-78 03:05:0029.4[facility] HkjjfqtCPUVCJKOTI4394-47-46 03:05:004.3[facility] MlzkewoYPDULJLXPQ3570-49-27 03:05:005.7[facility] ZzbmossIGXYHUIQFV8826-63-47 03:05:000.4[facility] [place] NCWAZKEOFO6952-75-38 03:05:001.2[facility] KbvwtsxSPVWYWFNTH5784-72-64 03:05:00 63.3[facility] CjehdqrWPVCWNLPIF3071-29-98 03:05:0014.0[facility] HermannHEMATOLOGY 2011-10-25 03:05:99461Pnrtlfmz OghtholQDRVNWMWXM4668-63-01 03:05:008.0[facility] WhsamrlZEZALQXBZZ6607-97-64 03:05:0013.3[facility] HzxqsthPYCGQVKYTG9130-42-79 03:05:0039.4[facility] AspbxalLZBBPBOORH4872-48-26 03:05:0086.2[facility] [place] NLPEQDMMEJ8489-28-93 03:05:00 Test Item Value Reference Range Interpretation Comments MCH (test code = MCH) 29.1 pg 27.0-31.0 N [facility] CslloawRQHQXBRWAE2397-04-02 03:05:0033.8[facility] HermannHEMATOLOGY 2011-10-25 03:05:006.9[facility] WniusrtAQVJACQGNV2594-39-46 03:05:004.57[facility] DpwvckmYORWRAYCWC6431-27-19 03:05:00Positive *ABN*(10/24/2011 22:05:00)[facility] BcgfclpBLWXHFXGKD5376-90-70 03:05:00Negative (10/24/2011 22:05:00)[facility] NwrcnfnCWAMATPQXW1091-12-99 03:05:00Negative (10/24/2011 22:05:00)[facility] BevjhaeSYQLOEFGCC8743-33-59 03:05:00>=1000 mg/dL *ABN*(10/24/2011 22:05:00) [facility]BfqryfhIMTYPRLYPQ8018-18-42 03:05:00 Test Item Value Reference Range Interpretation Comments UA pH (test code = UA pH) 6.0 1 5.0-8.0 N [facility] HospitalFmquvvfRTRNQPOIFM0578-41-54 03:05:00 Test Item Value Reference Range Interpretation Comments UA Spec Grav (test code = UA Spec 1.015 1 N Grav) [facility] HospitalQhfirgdPWNKJAEKGW9386-08-96 03:05:00Yellow *NA*(10/24/2011 22:05:00) [facility] HospitalXjfwqhwRGHYUGYSNN6808-37-47 03:05:00Clear (10/24/2011 22:05:00)[facility] HospitalHnrdeiuXDHRSJOKYN0900-40-77 03:05:000.2[facility]udaDfkmukvYTLUSYGIVS0995-05-39 03:05:00Negative *NA*(10/24/2011 22:05:00)[facility] HospitalGsgyypbSCVIUBIWIC7730-80-16 03:05:00Negative (10/24/2011 22:05:00)[facility] HospitalOpykdbhQWCMUCMQAP2182-66-10 03:05:00Negative *NA*(10/24/2011 22:05:00)[facility] HospitalCxlasgcIWCRUVNIDO8802-36-98 03:05:00Rare /LPF (10/24/2011 22:05:00)[facility] HospitalOxynobmXTGXAGFATT2892-11-34 03:05:00Moderate /HPF (10/24/2011 22:05:00)[facility] HospitalElqlubzBLVENQCIWW4310-84-67 03:05:000-2 /HPF (10/24/2011 22:05:00)[facility] HospitalCldjfqqWOTZVGOOHC7115-36-41 03:05:00Performed (10/24/2011 22:05:00)[facility] HospitalZwqwcgmVCODGIBRMN7203-61-80 03:05:006-10 /HPF *ABN*(10/24/2011 22:05:00)[facility] HospitalCtvdbvkWMQURWJIEP6321-36-93 03:05:00Rare /LPF (10/24/2011 22:05:00)[facility] HermannBEDSIDE GLUCOSE TESTING 2011-10-25 02:43:00>400[facility] HermannBEDSIDE GLUCOSE OSMTAPI5115-32-90 08:15:99885Ustgkrqt HermannBEDSIDE GLUCOSE WSTTVJV4634-51-71 07:07:00>400 [facility] YepkvhvEZBVEVRZI0793-90-36 05:10:99032Nadsbvlm HermannCHEMISTRY 2011-05-23 05:10:000.8[facility] HvsnjcdTHNGDVORI1189-09-52 05:10:0026[facility] SuctwgaJPOYZAYCP0295-39-35 05:10:0096[facility] JkcwwqaGUCAQODTX7242-65-64 05:10:003.9[facility] XykslpeTBJYNTTIN2394-60-37 05:10:0012.9[facility] [place] LDQJIHMUT5852-75-70 05:10:004.0[facility] DuzdmwvJWDMEFNFV8632-55-17 05:10:007.8 [facility] FggrrxmFWXUVJTUW9674-01-89 05:10:0015[facility] HermannCHEMISTRY 2011-05-23 05:10:12667Zygyoqbd MieizwqEIGJEODRY3382-77-25 05:10:001.1[facility] KoxqfypZXWPFSDFH9377-38-01 05:10:003.8[facility] LcaggkjSPTVVQOML0809-09-80 05:10:008.6[facility] ZluioaaNNZJZUTHN6317-95-78 05:10:0011[facility] AQGILIOYK4703-64-73 05:10:000.4[facility] WzmaerjVQBIPZJUN0289-72-46 05:10:80080 [facility] CmpghkxDJPTXLQAQ3907-53-09 05:10:0015[facility] HermannCHEMISTRY 2011-05-23 05:10:15211Rxoeznol XlckdoyKJGOPDLTB3754-52-44 05:10:0012[facility] VqcampoIAAHOUFHY0266-82-71 05:10:62719Nkjiovis UhsvblfDDLGYHVLW3577-05-67 05:10:000.36[facility] GazjhgcAJXTPIWVCF2763-39-64 05:10:22433Yqnhbael Jona GPJSLRUNIK5651-94-72 05:10:0034.3[facility] AzzioizKHDTCLJVJJ9903-15-29 05:10:00 7.9[facility] YhykeguFOLVNMVTOS3341-82-67 05:10:0013.0[facility] HermannHEMATOLOGY 2011-05-23 05:10:00 Test Item Value Reference Range Interpretation Comments MCH (test code = MCH) 29.5 pg 27.0-31.0 N [facility] KjkvarlAOAYPGGJPG2872-21-09 05:10:0038.1[facility] HermannHEMATOLOGY 2011-05-23 05:10:0086.0[facility] XbyepvcSQKFXMCBNA2888-66-89 05:10:004.43[facility] ZixyfnvFSPFBWRAFL8645-81-64 05:10:005.9[facility] QfvpbydZRWZIGUKWZ9572-52-47 05:10:0014.0[facility] GxhbfgbKIIQDFZGCT3830-71-04 05:10:000.0[facility] [place] NCIYGKHEZO7028-03-83 05:10:001.7[facility] LkmklxsGSDVFDXOOM9574-64-79 05:10:000.3 [facility] FjxqlgmKAUABSPZAE1144-77-65 05:10:000.6[facility] HermannHEMATOLOGY 2011-05-23 05:10:003.8[facility] XixyqmxSUOKWDGNFL7047-78-37 05:10:000.1[facility] RzzpvuxUEAFUHCRBZ1896-46-26 05:10:004.7[facility] FoekfbtVRMDFNSDBK9858-40-42 05:10:0028.9[facility] YuvwbsqEGLUIQEYZN2184-92-94 05:10:002.5[facility] UOXTGYXROJ8891-45-19 05:10:0063.3[facility] NkjqwpjKHZUNWKDBV3266-02-55 05:10:000- 2 /HPF (05/22/2011 23:10:00)[facility] WpbzrceJJNBMZOOSH9546-86-96 05:10:00 Occasional /HPF (05/22/2011 23:10:00)[facility] AtelqjiZKDHJFYQJC0368-34-65 05:10:00Negative (05/22/2011 23:10:00)[facility] ZiuoeiiQMESZCOVRQ0967-61-95 05:10:00Negative *NA*(05/22/2011 23:10:00)[facility] IjkdrxhXRXHIFUHBO8528-05-96 05:10:00>=1000 mg/dL *ABN*(05/22/2011 23:10:00)[facility] HermannURINALYSIS 2011-05-23 05:10:00Negative (05/22/2011 23:10:00)[facility] HermannURINALYSIS 2011-05-23 05:10:00 Test Item Value Reference Range Interpretation Comments UA pH (test code = UA pH) 5.0 1 5.0-8.0 N [facility] NetukiyUZJSQOCFRH7507-47-28 05:10:003-5 /HPF (05/22/2011 23:10:00) [facility] SkvkioyQWZFYOBALH5989-18-91 05:10:00Rare /LPF (05/22/2011 23:10:00) [facility] QttobhbPKDTAYUINP6902-82-75 05:10:000.2[facility] HermannURINALYSIS 2011-05-23 05:10:00Negative (05/22/2011 23:10:00)[facility] HermannURINALYSIS 2011-05-23 05:10:00Negative *NA*(05/22/2011 23:10:00)[facility] HermannURINALYSIS 2011-05-23 05:10:00Negative (05/22/2011 23:10:00)[facility] HermannURINALYSIS 2011-05-23 05:10:00Performed (05/22/2011 23:10:00)[facility] HermannURINALYSIS 2011-05-23 05:10:00Yellow *NA*(05/22/2011 23:10:00)[facility] HermannURINALYSIS 2011-05-23 05:10:00Clear (05/22/2011 23:10:00)[facility] HermannURINALYSIS 2011-05-08 00:16:00Negative (05/07/2011 18:16:00)[facility]annURINALYSIS 2011-05-08 00:16:000.2[facility] CbwcivhZYNMRYFKRA1922-37-93 00:16:00Negative *NA*(05/07/2011 18:16:00)[facility]AlezytgTNEEYHTASK5772-71-88 00:16:00Large *ABN*(05/07/2011 18:16:00)[facility]anoWbldqsmURWDXIWEEV3743-44-51 00:16:006-10 /HPF *ABN*(05/07/2011 18:16:00)[facility]anoMercreuFJLAXRCOCR1046-25-35 00:16:00 Occasional /HPF (05/07/2011 18:16:00)[facility]anoTulbsqlHHZITXXUBJ4156-01-65 00:16:00Performed (05/07/2011 18:16:00)[facility]anoXylbyocBXTKKYOBSV1676-19-73 00:16:00Few /LPF (05/07/2011 18:16:00)[facility]PyyvmevKDKKMWGIFD0657-90-37 00:16:00Negative (05/07/2011 18:16:00)[facility] AtlantaJraalstYDFLZGYJLG4865-49-58 00:16:0021-50 /HPF *ABN*(05/07/2011 18:16:00)[facility]URINAL[facility] 2011-05-08 00:16:00Trace *ABN*(05/07/2011 18:16:00)[facility]UR[facility] 2011-05-08 00:16:00>=1000 mg/dL *ABN*(05/07/2011 18:16:00)[facility] DLBEAVIBUY8754-87-27 00:16:00Negative (05/07/2011 18:16:00)[facility] OKHETCJIXW4022-90-78 00:16:00 Test Item Value Reference Range Interpretation Comments UA Spec Grav (test code = UA Spec 1.010 1 N Grav) [facility] PlanoZsufzmuODCLKOZILH5593-13-81 00:16:00Clear (05/07/2011 18:16:00)[facility]anoWerauosFRRFXTIQST0139-71-03 00:16:00 Test Item Value Reference Range Interpretation Comments UA pH (test code = UA pH) 6.0 1 5.0-8.0 N [facility] PlanoYllitrsMVODLETLGP8396-89-18 00:16:00Yellow *NA*(05/07/2011 18:16:00) [facility]annBEDSIDE GLUCOSE ZPOLMEO1143-78-63 06:51:17922Yqluuhtv [place] PWUDUSWJM8196-65-97 04:20:00Negative (04/19/2011 22:20:00)[facility] KNZMSHERQ7580-49-79 04:20:004.1[facility] SewzecxCGPJDEAPA9310-41-60 04:20:0015 [facility] SfadkgsANKZRQNXW9175-40-96 04:20:009.2[facility] HermannCHEMISTRY 2011-04-20 04:20:0096[facility] QlhiuuuTTAGFMOOZ9184-85-04 04:20:0016.2[facility] NwilrwzYULKEPLJG8791-45-97 04:20:0024[facility] NvpysxaIQIPSHKRR3188-11-46 04:20:004.0[facility] IvruaylJYUCWFGAC8794-82-02 04:20:008.1[facility] [place] YNDJNNDDF8536-18-77 04:20:000.4[facility] XclwlzuRVTKFVEXE1614-09-47 04:20:0092 [facility] SgwdcwxSKCDMEUBE2250-80-75 04:20:004[facility] KsqmyomMHXIBKHVH0995-28-53 04:20:0014[facility] EeburvkDRGAQNSGX1535-62-67 04:20:001.0[facility] CFEMXDGYU6602-15-93 04:20:05076Wbzmxyfo PsedikrUBMOXOACB0684-68-68 04:20:000.8 [facility] LuovmomNLKOFOTRH6315-24-69 04:20:0012[facility] HermannCHEMISTRY 2011-04-20 04:20:004.2[facility] DtpgmjtSZXMSXIBI6753-59-18 04:20:60231Zfsurvey CmaosqbIBXBOQQPH6864-89-71 04:20:63208Pvsdpinl UhilaytJAIWGXMCC9974-32-16 04:20:0070[facility] NbnacnrYYFGPGMAJL0856-89-91 04:20:007.9[facility] [place] GRLQEMEBBH5275-27-19 04:20:19016Iztmhlax ZvhdayzQARRLCEXOW3625-82-21 04:20:00 4.54[facility] YmwmxhcXGAOPMWKCW2295-12-52 04:20:0013.3[facility] HermannHEMATOLOGY 2011-04-20 04:20:00 Test Item Value Reference Range Interpretation Comments MCH (test code = MCH) 29.3 pg 27.0-31.0 N [facility] FmmdkxsCAHVQJIHEW4799-36-94 04:20:0033.9[facility] HermannHEMATOLOGY 2011-04-20 04:20:0014.0[facility] JnesyeiISCEQWSPOA2891-57-91 04:20:0039.3[facility] SsksefiCVVPCDIDMB3414-92-31 04:20:0086.5[facility] VjzhflhRMRDCXKZPS8657-44-70 04:20:008.6[facility] PnsvlrtIJXNXTLYYT1969-97-57 04:20:000.1[facility] HZTUSWFXOP7810-88-72 04:20:000.1[facility] MvhfgueCDUNVSAUNI7486-94-23 04:20:000.9 [facility] TchakipIDBWPKRHFJ1150-48-24 04:20:0019.9[facility] HermannHEMATOLOGY 2011-04-20 04:20:005.4[facility] HsvcfuqDROXBAOSPJ1303-66-52 04:20:0073.1[facility] SnrcqrrNALKZODSDI6125-09-12 04:20:001.7[facility] OeiwvaoCVYTNOCJQY9794-64-50 04:20:000.5[facility] RxgutexHGELFDHYZW7251-09-86 04:20:000.7[facility] WQOGBEXQTG3539-62-77 04:20:006.3[facility] GvklmwmFRRNRNHEIK5015-65-50 02:29:00 Negative *NA*(04/19/2011 20:29:00)[facility] NotvxkhOAFXJGDWRM1715-47-98 02:29:00 Negative *NA*(04/19/2011 20:29:00)[facility] RgxqjxxEFJIPZPYXH9422-14-63 02:29:00 Negative (04/19/2011 20:29:00)[facility] KbhpvacSRLOXRYPNU3793-63-86 02:29:00 Negative (04/19/2011 20:29:00)[facility] RmrbltnLTWCPKQVRY9788-93-84 02:29:00 Test Item Value Reference Range Interpretation Comments UA pH (test code = UA pH) 6.0 1 5.0-8.0 N [facility] KofmytpPKDAMKSTHC8316-62-75 02:29:00>=1000 mg/dL *ABN*(04/19/2011 20:29:00)[facility] BxkdhptCEKJRJVLWP5846-98-15 02:29:00Performed (04/19/2011 20:29:00)[facility] JigddlbIFVMFMKOID7311-14-31 02:29:00Negative (04/19/2011 20:29:00)[facility] XgowdnkEBOKDNNEGG9518-80-08 02:29:000.2[facility] TUWMDKAXZB9143-45-66 02:29:00Negative (04/19/2011 20:29:00)[facility] [place] XIKHPEFTSN9910-15-69 02:29:00Occasional /HPF (04/19/2011 20:29:00)[facility] FzlqxjdPHWBHHDSQQ7707-08-25 02:29:00Occasional /LPF (04/19/2011 20:29:00) [facility] CaexspfUEKBKVFXLR0716-08-97 02:29:003-5 /HPF (04/19/2011 20:29:00) [facility] WvaxopvGNMTHUASFV6491-19-56 02:29:000-2 /HPF (04/19/2011 20:29:00) [facility] WcvsdaeSMLXYOCUEJ7941-16-73 02:29:00Clear (04/19/2011 20:29:00)[facility] PgpmgzwZBDQOSMHJK8784-48-60 02:29:00Yellow *NA*(04/19/2011 20:29:00)[facility] JVQMYRD1276-61-79 05:47:63383Sbtpjsmk HermannCHEMISTRY 2011-03-26 02:45:00<3[facility] FleocbkJXBYYQKJK7482-93-58 02:45:009.2[facility] AztghfwGUTOCABJE9736-44-40 02:45:0014.0[facility] VzlqvrgYJJRPFGNE0140-40-84 02:45:0025[facility] JpmmgicFUBFNUETV0524-15-90 02:45:0097[facility] [place] RSVCPYHGO2104-92-55 02:45:004.0[facility] VphtufbQMFENPNFT1584-93-76 02:45:000.7 [facility] MmfwzmfEMUAFUYWX3795-24-32 02:45:57946Fzkjhsjw HermannCHEMISTRY 2011-03-26 02:45:000.5[facility] LhbjnxcVJORBHIJB5371-57-93 02:45:0069[facility] FoapykqACSDSEXKH3155-50-87 02:45:0014[facility] DrafuaxBOIRJZMOX0356-91-09 02:45:003.9[facility] BijofltIKRPBEPMX0269-46-29 02:45:007.8[facility] [place] GFUINOFHS2164-21-31 02:45:0019[facility] MbmrziyYWAVOKFDZ9523-73-65 02:45:001.0 [facility] BtntbgzQYUVYYCBB9356-36-48 02:45:003.9[facility] HermannCHEMISTRY 2011-03-26 02:45:0013[facility] EupbmveWFAACIBSV9007-25-70 02:45:56518Baaneyvb MsarsqdVGWAVFTJL2408-43-73 02:45:92057Ccezvbiu VnyriguNWJTURZNLU8708-44-55 02:45:0012.7[facility] OkosulsGMOLPGGRYG7908-04-68 02:45:0014.0[facility] [place] RPCXDVDCID6735-74-34 02:45:0036.9[facility] MpftmetPYGDLIOTJI4653-96-44 02:45:00 85.5[facility] ErhjatxKAUTEGUQEG8748-51-09 02:45:00 Test Item Value Reference Range Interpretation Comments MCH (test code = MCH) 29.5 pg 27.0-31.0 N [facility] ZlahlkmYPZEQKDDXY1595-43-67 02:45:0034.5[facility] HermannHEMATOLOGY 2011-03-26 02:45:46006Hutfvgdg UknhpnlCJYITYTGUC0945-63-22 02:45:008.2[facility] FrmmvsyWWHAUVXVRT0228-14-23 02:45:006.9[facility] FfvqswnDEEHKANKNB8429-78-23 02:45:004.32[facility] DlwwlzoAFPFIGFMUS3130-45-11 02:45:000.5[facility] VIRQUFYTXO6732-77-29 02:45:004.6[facility] KjlgknjNGZTJJNZQH8617-05-73 02:45:001.9 [facility] JmcmekqJQWUFWPNBI8771-38-14 02:45:000.3[facility] HermannHEMATOLOGY 2011-03-26 02:45:000.1[facility] CubzhpqPDJTJTSIXK1228-86-57 02:45:000.0[facility] ZlwgtehXPDTNDKUWH6843-90-66 02:45:0027.2[facility] SmvwlzwQWSBLNZDVE4626-79-27 02:45:0066.3[facility] CncaugzCTQQTAPSFG6705-89-47 02:45:004.8[facility] [place] CBRUBKRMZR7785-29-97 02:45:001.2[facility] WhplxknZAKRPPUPPP5575-91-21 02:00:00 Occasional /HPF (03/25/2011 20:00:00)[facility] WnobmgaIIVDETRVYN7630-89-46 02:00:00Occasional /HPF *ABN*(03/25/2011 20:00:00)[facility] HermannURINALYSIS 2011-03-26 02:00:00Rare /LPF (03/25/2011 20:00:00)[facility]annURINALYSIS 2011-03-26 02:00:000-2 /HPF (03/25/2011 20:00:00)[facility]annURINALYSIS 2011-03-26 02:00:000-2 /HPF (03/25/2011 20:00:00)[facility]annURINALYSIS 2011-03-26 02:00:00Negative (03/25/2011 20:00:00)[facility]annURINALYSIS 2011-03-26 02:00:00Performed (03/25/2011 20:00:00)[facility]annURINALYSIS 2011-03-26 02:00:00Negative (03/25/2011 20:00:00)[facility]annURINALYSIS 2011-03-26 02:00:00Negative (03/25/2011 20:00:00)[facility]annURINALYSIS 2011-03-26 02:00:000.2[facility] SnhbfcbMYMMCEKUJL5227-56-33 02:00:00Yellow *NA*(03/25/2011 20:00:00)[facility] TkouafyYCBNWIUAIA6253-62-27 02:00:00Clear (03/25/2011 20:00:00)[facility] ZjwycwuPYTPZXBCVB8387-78-68 02:00:00Negative *NA*(03/25/2011 20:00:00)[facility] MhogbctSUIOZMEHLO7657-03-07 02:00:00>=1000 mg/dL *ABN*(03/25/2011 20:00:00)[facility] BsevxwsXGCHVQVEGJ6078-83-71 02:00:00 Negative *NA*(03/25/2011 20:00:00)[facility] NdjsqhvGLPPXRTENV4300-02-35 02:00:00 Test Item Value Reference Range Interpretation Comments UA pH (test code = UA pH) 6.0 1 5.0-8.0 N [facility] JxrpgmqNCATLEKPDX6564-00-49 02:00:00Negative (03/25/2011 20:00:00) [facility]annBEDSIDE GLUCOSE IMYHOUA2006-61-49 16:26:81266.0[facility] [place] VOGOAVNSP2156-27-66 15:30:00<0.6[facility] UgibolbORWYVSHUC2665-91-58 15:30:00 <0.5[facility] HzgzouzFZXUROJPO0090-54-26 15:30:0077.0[facility] HermannCHEMISTRY 2011-02-11 15:30:0077.0[facility] JukwjjoYWWVYJMRZ1319-42-66 15:30:00<0.02 [facility]annBED[facility]SE KUZDRIC8076-91-95 12:00:85863.0[facility] TGYHEEXKB1626-36-77 09:29:001.5[facility] HphlzahVUPYXYSQN9803-28-58 09:29:01768.0 [facility] ItxlcqrQNVWTIACZ3802-94-04 09:29:0011.0[facility] HermannCHEMISTRY 2011-02-11 09:29:007.8[facility] EcocvaiJBAHUFHCD0341-90-73 09:29:0013.7[facility] IaoxnrgYLJVVNNOQ2211-94-13 09:29:000.6[facility] SbsdbtdTBFMGXYEW6372-51-93 09:29:32959.0[facility] UzlrdvjIFGHPTZHC8758-29-42 09:29:003.7[facility] [place] CWRDYQHIS0291-28-39 09:29:31203.0[facility] TkbpojbIBCBEXWCP0669-02-16 09:29:00 24.0[facility] RolprhkRWPBZHGHV9164-16-93 09:29:00<0.02[facility] FGSDCFQJF6671-03-96 09:29:0071.0[facility] VcezcinAIFWCNDXO7920-24-69 09:29:0071.0 [facility] FliqkoyYGTEVHFQKQ0297-26-04 09:29:007.8[facility] HermannHEMATOLOGY 2011-02-11 09:29:0014.1[facility] DhednreOUISOLMIVH7430-82-44 09:29:006.8[facility] CkyvvruIBUZDWFCBF0860-49-67 09:29:0011.8[facility] BlzfynlQKQGDLZSIM7913-05-48 09:29:004.11[facility] TehkxofBCCGYZGHXA1635-62-83 09:29:0035.3[facility] [place] SXKPZTMCMU0710-82-90 09:29:00 Test Item Value Reference Range Interpretation Comments MCH (test code = MCH) 28.7 pg 27.0-31.0 N [facility] QttoiirKBCZFDJMXT7416-42-31 09:29:0085.7[facility] HermannHEMATOLOGY 2011-02-11 09:29:61364.0[facility] SugsjolBZDMOYDZJS4980-22-94 09:29:0033.5 [facility] OhuybrwJOUAQQYGWP8765-72-12 09:29:0026.3[facility] HermannHEMATOLOGY 2011-02-11 09:29:0065.8[facility] DtkpbmfNFFCWGEQKG4420-18-87 09:29:006.1[facility] FiclpaqGJFJCWWLRE4562-98-03 09:29:001.2[facility] GhsthcyJHSZZAWXKD9508-03-24 09:29:000.6[facility] FcuarilDDHXXQDEFM3268-64-06 09:29:004.5[facility] [place] BFZIZWXDDE4680-60-94 09:29:001.8[facility] YcjegezAHMBWEILED9928-93-11 09:29:000.4 [facility] QujcjudPYERLETQBK5581-48-38 09:29:000.0[facility] HermannHEMATOLOGY 2011-02-11 09:29:000.1[facility] HermannBEDSIDE GLUCOSE ZXDNDXQ1657-00-86 05:34:00 151.0[facility] FhhzorbFMVNAVFCFD5823-69-61 03:26:00>=1000 mg/dL *ABN*(02/10/2011 22:26:00) ??[facility] HospitalDeswgexSYCYVORRLE9261-55-06 03:26:00 Negative mg/dL *NA*(02/10/2011 22:26:00) [facility] HospitalIstnrlwGOPSPIXTPU6525-83-76 03:26:00 Test Item Value Reference Range Interpretation Comments UA pH (test code = UA pH) 6.5 1 5.0-8.0 N [facility] HospitalUcdzftdKDCOBRFAIR2431-33-94 03:26:00Negative mg/dL (02/10/2011 22:26:00) ??[facility] HospitalWidythrKFEBDNUUGU3678-31-97 03:26:00Negative (02/10/2011 22:26:00) ??[facility] HospitalXkxorycPPNACHWCOX7926-84-58 03:26:00Negative (02/10/2011 22:26:00) ??[facility] HospitalYcztlfwIXNBWWSLCV1284-58-05 03:26:000.2[facility] IEHNONSIAV1959-56-00 03:26:00Negative (02/10/2011 22:26:00) ??[facility] PJMTYHXDAE4219-60-40 03:26:00Negative *NA*(02/10/2011 22:26:00) ??[facility] HospitalZxlglrrIDSGWKBBBS1454-20-53 03:26:00Clear (02/10/2011 22:26:00) ??[facility] BxgupfkADKVFARUFM1144-95-62 03:26:00 Test Item Value Reference Range Interpretation Comments UA Spec Grav (test code = UA Spec 1.01 1 N Grav) [facility] PzczaoqUUKYHYRFAD1719-05-02 03:26:00Yellow *NA*(02/10/2011 22:26:00) ?? [facility] FlgblxkHWRPBNPOLO2819-35-28 03:26:000-2 /HPF (02/10/2011 22:26:00) ?? [facility] VlfpvtnAKEURSRMWR2233-39-54 03:26:006-10 /HPF *ABN*(02/10/2011 22:26:00) ??[facility] QgefjryARWOMIETNA4074-13-67 03:26:00Few /LPF (02/10/2011 22:26:00) ??[facility] MmrvcklVRPFUXTWRT2497-81-30 03:26:00Few /HPF (02/10/2011 22:26:00) ??[facility] OvqzffySBVPMZNORR9203-62-53 03:26:00Occasional /HPF *ABN*(02/10/2011 22:26:00) ??[facility] SdulsalOBOBTJTVKM8852-32-89 03:26:00 Performed (02/10/2011 22:26:00) ??[facility] FcmjgchTOREFGEDA4155-95-23 03:03:00 Negative *NA*(02/10/2011 22:03:00) ??[facility] AsoxosxROTAFQTAA2781-31-82 03:03:00<0.5[facility] HnxbtegKRVTLDOCF6780-36-79 03:03:00<0.02[facility] EcldmjxJPRXEHIZA0252-82-76 03:03:007.0[facility] FuuhpulKYWHFHCRQ8979-26-35 03:03:004.0[facility] EmfmtrjQGWTTMLYL9841-50-64 03:03:007.5[facility] TABAIXXAX8342-65-97 03:03:00 Test Item Value Reference Range Interpretation Comments A/G Ratio (test code = A/G Ratio) 1.1 1 0.7-1.6 N [facility] PcfuuvjDETLZYRST7120-44-90 03:03:003.5[facility]annCHEMISTRY 2011-02-11 03:03:0014.0[facility] InsttsyRLWQVPSLK9238-42-04 03:03:000.3[facility] TvygkqwBPONWPRNX7517-99-70 03:03:0069.0[facility] OziaihrFPDDUFCJK5576-04-23 03:03:0022.0[facility] MfzzgllPYPKTZOLH9444-46-72 03:03:00 Test Item Value Reference Range Interpretation Comments B/C Ratio (test code = B/C Ratio) 20.0 1 6-25 N [facility] CplxwyyNQBWEMZVT5191-55-07 03:03:0096.0[facility]annCHEMISTRY 2011-02-11 03:03:008.7[facility] BtnmqknVRHNJWYSD1869-38-86 03:03:0017.3[facility] KatwdmpFUUDJYUGP0853-92-70 03:03:40610.0[facility] DovvpecBJYKUNQRO6750-74-92 03:03:12373.0[facility] UytsbtwWKMESVAIZ7363-67-59 03:03:000.6[facility] FUJZCYUBT9498-38-47 03:03:0012.0[facility] OmzsxplOXFXJOHSB3109-41-52 03:03:004.3 [facility] QdbtpviLZPUQBIQS0821-75-39 03:03:00Negative (02/10/2011 22:03:00) ?? [facility] KsooyejQEGDSKQRCJ0622-61-77 03:03:003.9[facility]annHEMATOLOGY 2011-02-11 03:03:002.0[facility] MkljanvGTAVQJWKWY2320-46-62 03:03:000.5[facility] UehekmrSWXMOKCQWY3161-02-84 03:03:000.4[facility] BvqsojbERQKXALHHA2848-06-82 03:03:000.1[facility] AsxizvrNVGNXKPRDP6666-29-68 03:03:0060.9[facility] NYQADVOVYC6084-63-90 03:03:0031.7[facility] MizmtejXKAHFIYEEP3330-79-31 03:03:00 1.2[facility] JnzekrvXGDLIPNEQR9012-28-74 03:03:005.7[facility]annHEMATOLOGY 2011-02-11 03:03:000.0[facility] PuiakkvLKFYYPCOZJ5320-14-24 03:03:00 Test Item Value Reference Range Interpretation Comments PT (test code = PT) 13.9 s 12.0-14.7 N [facility]AmyiwcdVVDTWVZPZV7122-34-77 03:03:00 Test Item Value Reference Range Interpretation Comments PTT (test code = PTT) 28.4 s 22.9-35.8 N [facility] HospitalVfpibqnMUJCFHMVDV2324-78-48 03:03:00 Test Item Value Reference Range Interpretation Comments INR (test code = INR) 1.07 1 0.85-1.17 N [facility] HospitalUkhdbrnYUHSATNXNJ4348-71-49 03:03:0033.7[facility]annHEMATOLOGY 2011-02-11 03:03:0014.3[facility] RialopyUUTSBOAHKD1804-13-60 03:03:44645.0 [facility] HospitalGdaeaqjQOHHUFPQEC2600-90-82 03:03:007.9[facility]annHEMATOLOGY 2011-02-11 03:03:0085.9[facility] XflrngrSLQQCQCWPM3168-19-31 03:03:004.43[facility] WroyjxnHYYYAVRPIB7902-16-27 03:03:0038.1[facility] TvjyfxsXUPNLAQYJR3081-47-33 03:03:0012.8[facility] LrboexxJFVIZPQPRH8590-02-88 03:03:00 Test Item Value Reference Range Interpretation Comments MCH (test code = MCH) 28.9 pg 27.0-31.0 N [facility] HospitalNgadcywRGPBQXWKLG7923-83-97 03:03:006.5[facility]annHEMATOLOGY 2011-02-11 03:03:001.1[facility] HermannBEDSIDE GLUCOSE JTELNOV9036-62-96 16:39:00 175.0[facility] HermannBEDSIDE GLUCOSE GXFQXGJ9403-21-82 12:16:0088.0[facility] HermannBEDSIDE GLUCOSE [place]9076-31-85 11:27:0070.0[facility]annCHEMISTRY 2011-01-15 10:45:00<0.6[facility] FrtwrzuZLZJKLQEX6829-73-90 10:45:00<0.5 [facility] HhtdgjpXFHPJGUEP2235-21-15 10:45:00<0.02[facility]annCHEMISTRY 2011-01-15 10:45:0088.0[facility] GjpptwfFBIGQGTOB2341-29-58 10:45:000.6[facility] KbwoluzUULLWAUDY6280-99-28 10:45:003.4[facility] WllpzfiJRXCISUKW5404-59-92 10:45:42353.0[facility] QlhmbbrAGRAWRGIP6040-84-26 10:45:0013.0[facility] FFTYQCQEL1199-61-89 10:45:0025.0[facility] SecmykcLKLZJCCUS2114-62-02 10:45:008.0 [facility] AjotvwwTSCPEHZYQ9098-19-18 10:45:0018.4[facility]annCHEMISTRY 2011-01-15 10:45:77110.0[facility] EaayzekCRTVEXYCZ7236-11-70 10:45:27563.0 [facility] ZjwloyeJSVZUQRFC0714-14-22 10:45:0096.0[facility]annCHEMISTRY 2011-01-15 10:45:00 Test Item Value Reference Range Interpretation Comments CHD Risk (test code = CHD Risk) 3.8 1 3.90-5.80 L [facility] IrvruciHHKDJFFRP1028-24-09 10:45:0045.0[facility]annCHEMISTRY 2011-01-15 10:45:92577.0[facility] DrkxknqDAJVCPHPP4553-18-34 10:45:80142.0 [facility] LkcfrniQXARZNJRO2488-91-02 01:43:00<0.5[facility]annCHEMISTRY 2011-01-15 01:43:00<0.6[facility] WecojloJPVEXQCST7548-80-37 01:43:0083.0 [facility] WpswsqwVWEAGBUGS0396-06-88 01:43:00<0.02[facility]annCHEMISTRY 2011-01-14 21:36:00Negative (01/14/2011 16:36:00) ??[facility]annCHE[facility]STRY 2011-01-14 20:36:00<0.6[facility] BtakqpqYYVJMCANM6999-27-04 20:36:0013.0 [facility] RtnfrpdAMQONWVNC0818-72-26 20:36:00<3.0[facility]annCHEMISTRY 2011-01-14 20:36:000.5[facility] PyikzomGDFNOERST3871-30-72 20:36:003.8[facility] RjjyqdyJSZSXQTGM2304-45-74 20:36:0017.0[facility] NysqlmgYWJOUEOYL8847-24-55 20:36:0071.0[facility] FhzxkbbCMEZGDHQY6774-26-98 20:36:003.8[facility] [place] IEVSALPBY9002-41-33 20:36:11682.0[facility] PflxxyqZNZHGBQQJ3496-36-66 20:36:00 22.0[facility] AyqqhdnIAGYRUEKN2737-06-77 20:36:0014.8[facility]annCHEMISTRY 2011-01-14 20:36:008.6[facility] OhdrusjURBLXHMFX1484-99-54 20:36:54666.0[facility] EzozphiCQLZTGJEH3050-18-13 20:36:003.6[facility] ZlccyfsGCCHNZREV0922-19-10 20:36:00 Test Item Value Reference Range Interpretation Comments A/G Ratio (test code = A/G Ratio) 1.1 1 0.7-1.6 N [facility] NyohrcuSPNMMGSUE9860-40-54 20:36:00 Test Item Value Reference Range Interpretation Comments B/C Ratio (test code = B/C Ratio) 11.0 1 6-25 N [facility] MwcopwlPKGNLVGNE6611-37-80 20:36:007.4[facility]annCHEMISTRY 2011-01-14 20:36:71828.0[facility] PkyqovwBSZXRIGQS1994-59-32 20:36:009.0[facility] ZqfgeooUXUMZEAUV5101-24-64 20:36:000.8[facility] XvzxmwrGRBIWPGLY0307-05-37 20:36:00<0.02[facility] JnfcndyEGKERORGD4076-43-15 20:36:00<0.5[facility] RhtzvriNBYIAYCMC7429-11-33 20:36:0078.0[facility] TjnongzVVNUEVDOYQ1442-39-64 20:36:000.3[facility] QwytnxeWJNWZKZVZO3775-79-30 20:36:001.7[facility] [place] GPHLTPPWDB3798-65-70 20:36:003.5[facility] GckzbedSFZGTMBZFL3103-25-08 20:36:000.9 [facility] IonlmyvJEAZTLEELR8120-87-26 20:36:000.9[facility]annHEMATOLOGY 2011-01-14 20:36:000.0[facility] DxewbzlKZETCRNBBE7354-39-42 20:36:000.1[facility] JxhtkbtVTKLADRKHP7039-45-72 20:36:0030.7[facility] XppjprwWTOBSBRLHQ5754-99-22 20:36:0063.0[facility] ZzjerfvSGWFQARUPH8379-26-14 20:36:004.5[facility] MIXFBLDTFD4989-09-80 20:36:0014.6[facility] IqkezclRGZHDGSDMA2879-66-90 20:36:00 34.0[facility] EudjmyuHPIGDQDHKM6905-67-30 20:36:008.0[facility]annHEMATOLOGY 2011-01-14 20:36:57514.0[facility] NbhyddzNYXWVOMGSL1540-34-84 20:36:00 Test Item Value Reference Range Interpretation Comments MCH (test code = MCH) 28.8 pg 27.0-31.0 N [facility] TmpawyzREHGWODCCX3281-43-31 20:36:0013.2[facility]annHEMATOLOGY 2011-01-14 20:36:004.6[facility] RdljujsVPSOKTDUGV4211-87-57 20:36:0038.9[facility] BxuaaivYDLIGHNLTV7709-40-87 20:36:0084.6[facility] BpntanpOYRKVSRHOF8549-74-54 20:36:005.6[facility] BmtgtvoYXHQCNBMEB4698-89-48 20:36:00 Test Item Value Reference Range Interpretation Comments PT (test code = PT) 13.6 s 12.0-14.7 N [facility]qlXCQYQCBWNB8497-61-22 20:36:00 Test Item Value Reference Range Interpretation Comments PTT (test code = PTT) 30.2 s 22.9-35.8 N [facility] HospitalEmykipvUKKPVAFHUY4410-88-81 20:36:00 Test Item Value Reference Range Interpretation Comments INR (test code = INR) 1.04 1 0.85-1.17 N [facility] HospitalEahxuwsZINZONHVCA1461-65-40 20:36:001.5[facility]
[2020-01-04 15:23] LABS: Absolute Lymphocytes (CBC) 1.9 K/uL (0.7-4.9); Basophils % 0.5 % (0-1.3); Hematocrit 34.1 % (36.0-45.0); Lymphocytes % 20.6 % (15.3-44.8); MPV 8.3 fL (7.6-11.3)
[2020-01-04] MEDS ORDERED: ACETAMINOPHEN 325 MG TABLET ONE (15:27)
[2020-01-04] MEDS ORDERED: NA CHLORIDE 0.9% 2,000 ML ONE (15:27)
[2020-01-04 15:29] LABS: Protime INR 1.01
--- NOTE | 2020-01-04 15:30 | RAD REPORT ---
EXAM DESCRIPTION: RAD - Chest Single View - 01/04/2020 3:21 pm CLINICAL HISTORY: fever, syncope Chest pain. COMPARISON: Chest Single View dated 11/15/2019; Chest Single View dated 06/25/2019; Chest Pa And Lat (2 Views) dated 05/10/2019; Chest Single View dated 04/20/2019 FINDINGS: Portable technique limits examination quality. The lungs are emphysematous but grossly clear. The heart is normal in size. No displaced fractures. IMPRESSION: No acute intrathoracic process suspected.
[2020-01-04 15:44] LABS: ALT/SGPT 19 U/L (12-78); Albumin 3.7 g/dL (3.4-5.0); Alkaline Phosphatase 141 U/L (45-117); BUN Blood Urea Nitrogen 25 mg/dL (7-18); Bicarbonate 30 mmol/L (21-32); Bilirubin Direct < 0.1 mg/dL (0-0.2); Bilirubin Total 0.6 mg/dL (0.2-1.0); Ferritin 103.4 ng/mL (8-388); Glucose Level 87 mg/dL (74-106); Lipase 107 U/L (73-393); Protein, Total 9.5 g/dL (6.4-8.2); Sodium Level 135 mmol/L (136-145); Troponin (Emerg Dept Use Only) < 0.02 ng/mL (0.0-0.045)
[2020-01-04 15:52] LABS: AST/SGOT 37 U/L (15-37); Potassium 5.5 mmol/L (3.5-5.1)
--- NOTE | 2020-01-04 17:31 | EDPHYS ---
Physician Documentation [facility] Name: Melissa De Oliveira Age: 54 yrs Sex: Female : 1965 Arrival Date: 01/04/2020 Time: 14:27 Bed 6 Private MD: ED Physician Chandana Nelson HPI: 01/03 15:43 This 54 yrs old Female presents to ER via Ambulatory with complaints of Fall rn Injury, Sore Throat, Nausea/Vomiting/Diarrhea. 15:43 The patient has experienced syncope. Onset: The symptoms/episode began/occurred today. rn Duration: This was a single episode. Associated signs and symptoms: Pertinent positives: dizziness, lightheadedness, nausea. Current symptoms: Currently, the patient is not experiencing any symptoms. The patient has not experienced similar symptoms in the past. Reports a few days of sore throat, nausea, diarrhea, generalized weakness, today got up to go to kitchen, passed out, hit right knee, doesn't feel broken, ambulatory and can move that knee with minimal pain. Denies sob or cough. No abd pain. No sob. Reports feels generalized weakness. . 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 - Social history:: Smoking status: Patient denies any tobacco usage or history of. - Family history:: not pertinent. - Hospitalizations: : No recent hospitalization is reported. ROS: 15:43 Constitutional: Negative for chills, and weight loss, Eyes: Negative for injury, pain, rn redness, and discharge, Neck: Negative for injury, pain, and swelling, Cardiovascular: Negative for chest pain, palpitations, and edema, Respiratory: Negative for shortness of breath, cough, wheezing, and pleuritic chest pain, Abdomen/GI: Negative for abdominal pain, and constipation, MS/Extremity: Negative for injury and deformity, Skin: Negative for injury, rash, and discoloration, Neuro: Negative for headache, numbness, tingling, and seizure. Exam: 15:43 Constitutional: This is a well developed, well nourished patient who is awake, alert, rn and in no acute distress. Head/Face: Normocephalic, atraumatic. Neck: Trachea midline, no masses, no cervical lymphadenopathy. Supple, full range of motion without nuchal rigidity, or vertebral point tenderness. No Meningismus. Cardiovascular: Tachycardic, regular Respiratory: Speaking full sentences. No increased work of breathing, no retractions or nasal flaring. Abdomen/GI: soft, non-tender Skin: Warm, dry MS/ Extremity: Pulses equal, no cyanosis. Neurovascular intact. Full, normal range of motion. Equal circumference. FROM right knee without deformity. Neuro: Awake and alert, GCS 15, oriented to person, place, time, and situation. Cranial nerves II-XII grossly intact. Motor strength 5/5 in all extremities. Sensory grossly intact. Vital Signs: 14:47 BP 76 / 53; Pulse 104; Resp 20; Temp 99.5(O); Pulse Ox 99% ; Weight 49.9 kg; Height 5 em ft. 4 in. (162.56 cm); Pain 0/10; 15:01 BP 98 / 64; Pulse 96 MON; Resp 14; Pulse Ox 99% on R/A; sv 16:00 BP 115 / 69; Pulse 86 MON; Resp 10; Pulse Ox 100% on R/A; sv 17:00 BP 124 / 72; Pulse 83; Resp 18; Pulse Ox 100% on R/A; tw2 14:47 Body Mass Index 18.88 (49.90 kg, 162.56 cm) em 15:01 Sinus Rhythm sv 16:00 Normal Sinus Rhythm sv Yaya Coma Score: 15:01 Eye Response: spontaneous(4). Verbal Response: oriented(5). Motor Response: obeys sv commands(6). Total: 15. Trauma Score (Adult): 15:01 Eye Response: spontaneous(1); Verbal Response: oriented(1); Motor Response: obeys sv commands(2); Systolic BP: > 89 mm Hg(4); Respiratory Rate: 10 to 29 per min(4); Gilbert Score: 15; Trauma Score: 12 MDM: 15:00 Patient medically screened. rn 17:26 Differential Diagnosis: vasovagal episode, dehydration, viral syndrome, COVID-19, rn strep/flu. Data reviewed: vital signs, nurses notes, lab test result(s), radiologic studies, plain films, and as a result, I will discharge patient. Counseling: I had a detailed discussion with the patient and/or guardian regarding: the historical points, exam findings, and any diagnostic results supporting the discharge/admit diagnosis, lab results, radiology results, the need for outpatient follow up, to return to the emergency department if symptoms worsen or persist or if there are any questions or concerns that arise at home. Response to treatment: the patient's symptoms have markedly improved after treatment, the patient is now symptom free, and as a result, I will discharge patient. Special discussion: I discussed with the patient/guardian in detail that at this point there is no indication for admission to the hospital. It is understood, however, that if the symptoms persist or worsen the patient needs to return immediately for re-evaluation. ED course: Patient back to baseline, normal BP, labs unremarkable, COVID sent, CXR clear, will dc home. Patient reports feels fine, not dizzy/lightheaded. Requesting to go home already.. 01/03 15:08 Order name: Blood Culture Adult (2) rn 01/03 15:08 Order name: BMP rn 01/03 15:08 Order name: C-Reactive Protein rn 01/03 15:08 Order name: CBC with Diff rn 01/03 15:08 Order name: COVID-19 rn 01/03 15:08 Order name: Ferritin rn 01/03 15:08 Order name: Flu rn 01/03 15:08 Order name: Lactate rn 01/03 15:08 Order name: LFT's rn 01/03 15:08 Order name: Lipase rn 01/03 15:08 Order name: Procalcitonin rn 01/03 15:08 Order name: PT-INR; Complete Time: 15:33 rn 01/03 15:08 Order name: Ptt, Activated; Complete Time: 15:33 rn 01/03 15:08 Order name: Strep; Complete Time: 16:53 rn 01/03 15:08 Order name: Troponin (emerg Dept Use Only); Complete Time: 16:53 rn 01/03 15:08 Order name: CXR XRAY; Complete Time: 15:33 rn 01/03 15:09 Order name: Blood Culture EDSC 01/03 15:09 Order name: Basic Metabolic Panel; Complete Time: 16:53 EDSC 01/03 15:09 Order name: C-Reactive Protein; Complete Time: 16:53 EDSC 01/03 15:09 Order name: CBC with Automated Diff; Complete Time: 15:33 EDSC 01/03 15:09 Order name: CORONAVIRUS EDSC 01/03 15:09 Order name: Ferritin; Complete Time: 16:53 [facility] 01/03 15:09 Order name: Influenza Screen (A ; Complete Time: 16:53 [facility] 01/03 15:09 Order name: Lactate; Complete Time: 16:53 [facility] 01/03 15:09 Order name: Liver (Hepatic) Function; Complete Time: 16:53 [facility] 01/03 15:09 Order name: Lipase; Complete Time: 16:53 [facility] 01/03 15:09 Order name: Procalcitonin; Complete Time: 17:20 [facility] 01/03 15:55 Order name: Throat Culture [facility] 01/03 15:08 Order name: EKG; Complete Time: 15:10 rn 01/03 15:08 Order name: Cardiac monitoring; Complete Time: 15:28 rn 01/03 15:08 Order name: Droplet/Contact Precautions; Complete Time: 15:29 rn 01/03 15:08 Order name: EKG - Nurse/Tech; Complete Time: 15:29 rn 01/03 15:08 Order name: IV Start; Complete Time: 15:29 rn 01/03 15:08 Order name: Labs collected and sent; Complete Time: 15:29 rn 01/03 15:08 Order name: O2 Per Protocol; Complete Time: 15:29 rn 01/03 15:08 Order name: O2 Sat Monitoring; Complete Time: 15:29 rn Administered Medications: 15:28 Drug: NS 0.9% 1000 ml Route: IV; Rate: 1000 ml; Site: right forearm; sv 17:00 Follow up: Response: No adverse reaction; IV Status: Completed infusion; IV Intake: sv 1000ml 15:28 Drug: Acetaminophen 650 mg Route: PO; sv 16:00 Follow up: Response: No adverse reaction sv 15:28 Drug: NS 0.9% 1000 ml Route: IV; Rate: 1000 ml; Site: right forearm; sv 17:00 Follow up: Response: No adverse reaction; IV Status: Completed infusion; IV Intake: sv 1000ml Disposition: 01/04/20 17:30 Discharged to Home. Impression: Syncope and collapse, Dehydration, Viral Syndrome. - Condition is Stable. - Discharge Instructions: COVID-19, Dehydration, Adult, Syncope. - Medication Reconciliation Form, Thank You Letter, Antibiotic Education, Prescription Opioid Use form. - Follow up: Private Physician; When: As needed; Reason: Recheck today's complaints, Re-evaluation by your physician. - Problem is new. - Symptoms have improved. Signatures: Dispatcher [employer] Li Chino RN RN sv Munoz, Edgar, RN RN Chandana Caldwell MD MD [employer] professor: (The following items were deleted from the chart) 17:47 17:30 01/04/2020 17:30 Discharged to Home. Impression: Syncope and collapse; sv Dehydration; Viral Syndrome. Condition is Stable. Discharge Instructions: COVID-19. Forms are Medication Reconciliation Form, Thank You Letter, Antibiotic Education, Prescription Opioid Use. Follow up: Private Physician; When: As needed; Reason: Recheck today's complaints, Re-evaluation by your physician. Problem is new. Symptoms have improved. rn
--- NOTE | 2020-01-04 17:31 | ER ---
Nurse's Notes [facility] Name: Melissa De Oliveira Age: 54 yrs Sex: Female : 1965 Arrival Date: 01/04/2020 Time: 14:27 Bed 6 Private MD: Diagnosis: Syncope and collapse;Dehydration;Viral Syndrome Presentation: 01/03 14:47 Chief complaint: Patient states: has been having some nausea since Friday and today em fell, does not remember what happened, pt thinks might have passed out, reports being lightheaded, denies being dizzy. Coronavirus screen: Client denies travel out of the [place] in the last 14 days. Ebola Screen: Patient negative for fever greater than or equal to 101.5 degrees Fahrenheit, and additional compatible Ebola Virus Disease symptoms Patient denies exposure to infectious person. Patient denies travel to an Ebola-affected area in the 21 days before illness onset. No symptoms or risks identified at this time. Initial Sepsis Screen: Does the patient meet any 2 criteria? Systolic BP < 90 mmHg. HR > 90 bpm. Does the patient have a suspected source of infection? No. Patient's initial sepsis screen is negative. Risk Assessment: Do you want to hurt yourself or someone else? Patient reports no desire to harm self or others. Onset of symptoms was January 02, 2020. 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 - Social history:: Smoking status: Patient denies any tobacco usage or history of. - Family history:: not pertinent. - Hospitalizations: : No recent hospitalization is reported. Screenin:00 Abuse screen: Denies threats or abuse. Denies injuries from another. Nutritional sv screening: No deficits noted. Tuberculosis screening: No symptoms or risk factors identified. Fall Risk None identified. Assessment: 14:55 General: Appears in no apparent distress. comfortable, slender, Behavior is calm, sv cooperative, appropriate for age. Pain: Complains of pain in right knee Pain currently is 2 out of 10 on a pain scale. Pain began this morning Is intermittent, episodic, Aggravated by increased activity, weight bearing. Neuro: Level of Consciousness is awake, alert, obeys commands, Oriented to person, place, time, situation, Moves all extremities. Full function Gait is steady, Speech is normal. Cardiovascular: Rhythm is sinus rhythm. Respiratory: Airway is patent Respiratory effort is even, unlabored, Respiratory pattern is regular, symmetrical. GI: Reports diarrhea, vomiting, since today. : Denies burning with urination, urinary frequency. EENT: Reports pain when swallowing since Friday but resolved that day. Derm: Skin is pale. Musculoskeletal: Range of motion: intact in all extremities. 15:55 Reassessment: Patient appears in no apparent distress at this time. No changes from tw2 previously documented assessment. Patient and/or family updated on plan of care and expected duration. Pain level reassessed. Patient is alert, oriented x 3, equal unlabored respirations, skin warm/dry/pink. 17:18 Reassessment: Patient appears in no apparent distress at this time. No changes from tw2 previously documented assessment. Patient and/or family updated on plan of care and expected duration. Pain level reassessed. Patient is alert, oriented x 3, equal unlabored respirations, skin warm/dry/pink. pt asking for results, provider notified. 17:46 Reassessment: Patient appears in no apparent distress at this time. No changes from sv previously documented assessment. Patient and/or family updated on plan of care and expected duration. Pain level reassessed. Patient is alert, oriented x 3, equal unlabored respirations, skin warm/dry/pink. Vital Signs: 14:47 BP 76 / 53; Pulse 104; Resp 20; Temp 99.5(O); Pulse Ox 99% ; Weight 49.9 kg; Height 5 em ft. 4 in. (162.56 cm); Pain 0/10; 15:01 BP 98 / 64; Pulse 96 MON; Resp 14; Pulse Ox 99% on R/A; sv 16:00 BP 115 / 69; Pulse 86 MON; Resp 10; Pulse Ox 100% on R/A; sv 17:00 BP 124 / 72; Pulse 83; Resp 18; Pulse Ox 100% on R/A; tw2 14:47 Body Mass Index 18.88 (49.90 kg, 162.56 cm) em 15:01 Sinus Rhythm sv 16:00 Normal Sinus Rhythm sv Yaya Coma Score: 15:01 Eye Response: spontaneous(4). Verbal Response: oriented(5). Motor Response: obeys sv commands(6). Total: 15. Trauma Score (Adult): 15:01 Eye Response: spontaneous(1); Verbal Response: oriented(1); Motor Response: obeys sv commands(2); Systolic BP: > 89 mm Hg(4); Respiratory Rate: 10 to 29 per min(4); Yaya Score: 15; Trauma Score: 12 ED Course: 14:27 Patient arrived in ED. ag5 14:50 Triage completed. em 14:51 Arm band placed on. em 14:52 Li Garzon, KIRIT is Primary Nurse. sv 15:00 Chandana Nelson MD is Attending Physician. rn 15:00 Patient has correct armband on for positive identification. Placed in gown. Bed in low sv position. Call light in reach. Adult w/ patient. monitoring manager on. Pulse ox on. NIBP on. Door closed. Head of bed elevated. 15:00 First set of blood cultures drawn by me. Inserted saline lock: 20 gauge in right sv forearm, using aseptic technique. Blood collected. Flushed right forearm with 2 ml normal saline. 15:05 Second set of blood cultures drawn by lab staff. sv 15:21 CXR XRAY In Process Unspecified. EDMS 15:29 Blood Culture Adult (2) Sent. sv 15:29 BMP Sent. sv 15:29 C-Reactive Protein Sent. sv 15:29 CBC with Diff Sent. sv 15:29 COVID-19 Sent. sv 15:29 Ferritin Sent. sv 15:29 Flu Sent. sv 15:29 Lactate Sent. sv 15:29 LFT's Sent. sv 15:29 Lipase Sent. sv 15:29 Procalcitonin Sent. sv 15:42 Awaiting lab results. sv 17:46 No provider procedures requiring assistance completed. IV discontinued, intact, sv bleeding controlled, No redness/swelling at site. Pressure dressing applied. 19:12 Primary Nurse role handed off by Li Garzon, KIRIT sv Administered Medications: 15:28 Drug: NS 0.9% 1000 ml Route: IV; Rate: 1000 ml; Site: right forearm; sv 17:00 Follow up: Response: No adverse reaction; IV Status: Completed infusion; IV Intake: sv 1000ml 15:28 Drug: Acetaminophen 650 mg Route: PO; sv 16:00 Follow up: Response: No adverse reaction sv 15:28 Drug: NS 0.9% 1000 ml Route: IV; Rate: 1000 ml; Site: right forearm; sv 17:00 Follow up: Response: No adverse reaction; IV Status: Completed infusion; IV Intake: sv 1000ml Intake: 15:01 PO: 0ml; Total: 0ml. sv 17:00 IV: 1000ml; Total: 1000ml. sv 17:00 IV: 1000ml; Total: 2000ml. sv Output: 15:01 Urine: 0ml; Total: 0ml. sv Outcome: 17:30 Discharge ordered by . rn 17:46 Discharged to home via wheelchair, with family. sv 17:46 Condition: stable 17:46 Discharge instructions given to patient, Instructed on discharge instructions, follow up and referral plans. Demonstrated understanding of instructions, follow-up care. 17:47 Patient left the ED. sv Signatures: Dispatcher [employer] Li Chino RN RN sv Munoz, Edgar, RN RN em Nieto, Roman, MD MD rn Wise, Tara, RN RN 2 Trino Johnson 5
[2020-01-04 18:14] VITALS: TEMP 99.5
[2020-01-04 18:17] VITALS: O2SAT 100
[2020-01-04 18:18] VITALS: BP 124/72
--- NOTE | 2020-01-05 12:04 | EKG ---
Test Date: 2020-01-04 Test Time: 15:08:18 [employer] Carpenter: FREDERIC MEASUREMENT RESULTS: Intervals: Rate: 101 NC: 152 QRSD: 66 QT: 346 QTc: 448 [place]: P: 79 NC: 152 QRS: 82 T: 84 INTERPRETIVE STATEMENTS: Sinus tachycardia Otherwise normal ECG Compared to ECG 11/15/2019 20:36:00 Sinus rhythm no longer present Electronically Signed On 01-05-20 12:01:34 CDT by Rogerio Smith
== END 2020-01-04 17:47 | disposition home or self-care (01) ==
LOC: ER 14:25
DX: E86.0 Dehydration (principal); Z20.828 Contact with and (suspected) exposure to other viral communicable diseases; B34.9 Viral infection, unspecified; E11.40 Type 2 diabetes mellitus with diabetic neuropathy, unspecified
CPT/HCPCS: 96361; 93005; 87040 ×2; 87070; 85025; 80048; 36415; 85610; 80076; 87081; 83605; 85730; 84484; 82728; 83690; 84145; 86140; 87804 ×2; 71045; 96360; 99284; U0002; J7030

== ENCOUNTER 2020-03-17 15:40 | Emergency (ER) | payer OTHER ==
--- OUTSIDE RECORDS SUMMARY | 2020-03-17 15:42 | XMS REPORT | Clinical Summary ---
:1965 Author Organization [facility] Address [address] [place] [address] Care Team Providers Name Role Phone Dneae Primary Care Provider Allergies Active Allergy Reactions [...] Assigned at Date Recorded Not on file Last Filed Vital Signs Not on file Plan of Treatment Health Maintenance Due Date Last Done Comments BREAST CANCER SCREENING 1965 COLON CANCER SCREENING COLONOSCOPY 1965 CERVICAL CANCER SCREENING PAP ONLY (Age 21-65) 1986 LIPID PANEL 2010 INFLUENZA VACCINE (#1) 2019 Results Not on fileafter 03/17/2019
--- OUTSIDE RECORDS SUMMARY | 2020-03-17 15:49 | XMS REPORT | Continuity of Care Document ---
:1965 Author Organization [facility] Care Team Providers Name Role Phone [employer] Unavailable Un available Problems Problem Status Onset Classification Date Comments Sourc e Date Reported Radiculopathy, 02/26/20 02/28/2017 [facility] cervical region 17 Hosp ital Hyperglycemia, 02/26/20 03/01/2017 [facility] unspecified 17 Hospital Fever, 02/26/20 03/01/2017 [facility] unspecified 17 Hospital Displaced 12/28/19 12/30/2016 [facility] unspecified 17 Hospital fracture of right lesser toe(s), initial encounter for closed fracture HURT TOES Active 12/28/[address] ABDOMINAL PAIN Active 02/07/20 [address] [place] EGD Active 02/05/20 [facility] 12 BLOOD SUGAR Active 11/28/19 [...] [place] BLEEDING ABD PAIN Active 01/06/20 [facility] 10 EAR PAIN Active 10/10/19 [facility] [place] UPPER ABDOMINAL Active 09/21/19 [facility] PAIN 10 [place] ABD PAIN, HIGH Active 08/16/19 [facility] SUGAR 10 [place] Abdominal pain Active Problem 02/19/2012 [facility] [place] Cellulitis Active Problem 02/19/2012 [facility] [place] Chest pain Active Problem 02/19/2012 [facility] [place] Hyperglycemia Active Problem 02/19/2012 [facility] [place] UTI - Urinary Active Problem 02/19/2012 tract infection [facility] [place] [place] Diabetes mellitus Active Problem 03/01/2017 [facility] Restless legs Active Problem 03/01/2017 [...] G.I. No Longer Cocktail = Active [facility] antacid with Hospital simethicone 22.5 mL - lidocaine viscous 7.5 mL Zofran Notes: (Same Inactive as: Zofran) 2016 [facility] MEDICATION Hospital WASTE Product Size: 4 mg Product Wasted: ___ mg Zofran Notes: (Same Inactive as: Zofran) 2016 [facility] MEDICATION Hospital WASTE Product Size: 4 mg Product Wasted: ___ mg Morphine Notes: (Same Inactive as:MORPhine 2017 [facility] Sulfate) Hospital Lidocaine Notes: Inactive Hydrochloride 10 Preservative 2016 [facility] MG/ML Injectable free. 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 PERFORMANCE MANAGER ibuprofen 800 mg 800 mg = 1 [...] (Same No Longer as: Valium) Active 2016 [facility] Ketorolac 4 days No Longer MEDICATION Active 2016 [facility] WASTE Hospital Product Size: 30 mg Product Wasted: ___ mg Ciprofloxacin 500 500 mg = 1 Active MH MG Oral Tablet tab, PO, Q12H, 2017 [facility] [Cipro] for UTI, X 3 Hospital day, # 6 tab, 0 Refill(s), Pharmacy: [id number] Humalog 100 4 unit, SUB-Q, Active units/mL TID-Before 2017 [facility] Meals, hold Hospital insulin injection if your blood sugar is less than 140 mg/dL., # 10 mL, 0 Refill(s), Pharmacy: [facility]/pharmacy #[id number] pantoprazole 40 40 mg = 1 tab, Active 01/26/ H [facility] Enteric Coated PO, Daily, # 2017 [facility] Tablet [Protonix] 30 tab, 0 Hosp ital Refill(s), Pharmacy: [facility]/pharmacy #[id number] Calcium Carbonate 500 mg = 1 Active 500 MG Chewable tab, PO, TID, 2017 [facility] Tablet # 6 tab, 0 Hospital Refill(s), Pharmacy: [facility]/pharmacy #[id number] Insulin Glargine 15 unit, Active 100 UNT/ML SUB-Q, Daily, 2016 [facility] Injectable # 10 mL, 0 Hospital Solution [Lantus] Refill(s), Pharmacy: [facility]/pharmacy #[id number] Calcium Gluconate Notes: WASTE: Inactive F/P - Sink; E 2016 [facility] - [facility] Hospital Trash Bin Calcium Carbonate Notes: (Same Inactive As: [facility]) 2017 [facility] Calcium Hospital Carbonate 500 mg = 200 mg elemental calcium Dose = mg calcium carbonate ( mg elemental calcium) Insulin Glargine Notes: Same as No Longer 100 UNT/ML Lantus Active 2016 [facility] Injectable Solostar PEN Hospital Solution [Lantus] Do not hold insulin without contacting prescriber "single patient use only" WASTE: F/P - Black; E - Municipal Trash Bin Stable for 28 days at room temperature. Expires in days from Date Requip Notes: (Same No Longer as: Requip) Active 2017 [facility] Lyrica Notes: (Same No Longer as: Lyrica) Active 2017 [facility] Calcium Carbonate Notes: (Same Inactive As: Tums) 2017 [facility] Calcium Hospital Carbonate 500 mg = 200 mg elemental calcium Dose = mg calcium carbonate ( mg elemental calcium) Protonix Notes: Tablet No Longer should not be Active 2017 [facility] chewed or Hospital crushed. (Same as: Protonix) Magnesium Oxide Notes: (Same No Longer H as: Mag-Ox Active 2017 [facility] 400) Magnesium Hospital oxide [id number] elemental magnesium Dose=____mg magnesium oxide (___mg elemental magnesium) Ketorolac 4 days No Longer MEDICATION Active 2017 [facility] WASTE Hospital Product Size: 30 mg Product Wasted: ___ mg Docusate Notes: (Same No Longer as: Colace) Active 2016 [facility] (Do Not Crush) [facility] Insulin Glargine 50 units, No Longer 100 UNT/ML SUB-Q, Daily, Active 2016 [facility] Injectable 0 Refill(s) [facility] Solution [Lantus] ropinirole 2 MG 2 mg = 1 tab, Active Oral Tablet PO, Bedtime, 0 2016 [facility] [Requip] Refill(s) [facility] pregabalin 75 MG 75 mg = 1 cap, Active Oral Capsule PO, Bedtime, 0 2016 [facility] [Lyrica] Refill(s) [facility] Insulin Lispro 60 units) Inactive WASTE: F/P - 2017 [facility] Black; E - Hospital Municipal Trash Bin Stable for 28 days at room temperature. Expires in days from Date Ceftriaxone Notes: (Same No Longer As: Rocephin). 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 (Same Hospital as: Tylenol) Acetaminophen 325 Notes: (Same Inactive MG / Hydrocodone as: [place] 2017 [facility] Bitartrate 5 MG 325/5) Do not H ospital Oral Tablet exceed 4gm/day of acetaminophen. 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 Saline Flush 0.9% Notes: (Same No Longer as: BD Active 2016 [facility] Posiflush) Hospital Ketorolac 15 mg, Route: Inactive IV, ONCE, 2016 [facility] Dosing Weight Hospital 52.273, kg, Start date: 01/25/17 0:00:00 CDT, Stop date: 01/25/17 0:00:00 CDT Famotidine 20 mg, Route: Inactive IVP, ONCE, 2017 [facility] Dosing Weight Hospital 52.273, kg, Priority: STAT, [...] 4 mg, Route: Inactive IVP, Drug 2017 [facility] form: INJ, Hospital ONCE, Dosing Weight 52.273, kg, Priority: STAT, Start date: 01/24/17 22:07:00 CDT, Stop date: 01/24/17 22:07:00 CDT Morphine Notes: (Same Inactive as:MORPhine 2017 [facility] Sulfate) Hospital Acetaminophen 300 1 - 2 tab, PO, No Longer 12/27 MG / Codeine Q4H, PRN Pain, Active 2016 [facility] Phosphate 30 MG X 2 day, # 30 Ho spital Oral Tablet tab, 0 [Tylenol with Refill(s) Codeine #3] Acetaminophen 325 Notes: (Same Inactive MG / Hydrocodone as: [place] 2016 [facility] Bitartrate 5 MG 325/5) Do not H ospital Oral Tablet exceed 4gm/day [[place] 5/325] of acetaminophen. Sodium Chloride 500 mL, Rate: IV No Longer [facility] Sugar 0.9% (Bolus) IV 500 ml/hr, Active 2011 [facility] 500 mL Infuse over: 1 hr, Route: [...] ketorolac 30 mg, Route: IVP No Longer [facility] Sug ar IVP, Drug Active 2011 [place] form: INJ, ONCE, Dosing Weight 50, kg, Priority: STAT, Start date: 11/28/11 21:51:00, Stop date: 11/28/11 21:51:00 ondansetron 4 mg, Route: IVP No Longer [facility] IVP, ONCE, Active 2011 [facility] Dosing Weight 50, kg, Priority: STAT, Start date: 11/28/11 21:51:00, Stop date: 11/28/11 21:51:00 Sodium Chloride 1,000 mL, IVPB No Longer [facility] S ugar 0.9% (Bolus) IV Rate: 1,000 Active 2011 [facility] 1,000 mL ml/hr, Infuse over: 1 hr, Route: IVPB, kg, Total Volume: 1,000, Bolus Dose, Priority: STAT, Start date: 11/28/11 21:51:00, Duration: 1 doses or times, Stop date: 11/28/11 22:50:00 Saline Flush 0.9% 5 ml, Route: IVP No Longer [facility] Sugar IVP, Drug Active 2011 [place] Form: INJ, kg, PRN, PRN Line Flush, Start date: 11/28/11 21:51:00, Duration: 30 day, Stop date: 12/28/11 21:50:00 [place] 5/325 oral 1-2 tab, PO, PO Active [facility] Sugar tablet Q4-6H, PRN, 2011 tab, Pain, Substitution Allowed, Soft Stop Zofran ODT 4 mg 4 mg, 1 tab, PO Active [facility] Sugar oral tablet, PO, TID, PRN, 2011 disintegrating 10 tab, Nausea and Vomiting, Substitution Allowed morphine Sulfate 4 mg, 2 mL, IVP No Longer [facility] Route: IVP, Active 2011 [facility] Drug form: INJ, ONCE, Priority: STAT, Start date: 10/25/11 0:22:00, Stop date: 10/25/11 0:22:00 diphenhydrAMINE 25 mg, Route: IVP No Longer [place] [facility] IVP, ONCE, Active 2011 Priority: STAT, Start date: 10/25/11 0:06:00, Stop date: 10/25/11 0:06:00 morphine Sulfate 4 mg, 2 mL, IVP No Longer [place] 10/24/ M [facility] Route: IVP, Active 2011 [facility] Drug form: INJ, ONCE, Priority: STAT, Start [...] Longer [place] [facility] IVP, Drug Active 2011 [facility] Form: INJ, PRN, PRN Line Flush, Start [...] regular 5 unit, 0.05 IVP No Longer [facility] Sugar mL, Route: Active 2011 [facility] IVP, Drug form: SOLN, ONCE, Priority: STAT, Start date: 05/23/11 1:10:00, Stop date: 05/23/11 1:10:00 Visipaque 32,000 mg, 100 IV Active [facility] Suga r mL, Route: IV, 2011 [facility] Drug form: INJ, ONCE, Start date: 05/22/11 23:47:00, Stop date: 05/22/11 23:47:00 Insulin regular 5 unit, 0.05 SUB-Q No Longer [facility] Sugar mL, Route: Active 2011 [facility] SUB-Q, Drug form: SOLN, ONCE, Priority: STAT, Start date: 05/22/11 23:36:00, Stop date: 05/22/11 23:36:00 morphine Sulfate 2 mg, 0.4 mL, IVP No Longer [facility] Sugar Route: IVP, Active 2011 [facility] Drug form: INJ, ONCE, Priority: STAT, Start date: 05/22/11 23:04:00, Stop date: 05/22/11 23:04:00 ondansetron 4 mg, 2 mL, IVP No Longer [facility] Sug ar Route: IVP, Active 2011 [facility] Drug form: INJ, ONCE, Priority: STAT, Start date: 05/22/11 23:04:00, Stop date: 05/22/11 23:04:00 Sodium Chloride 500 mL, Rate: IV No Longer [facility] Sugar 0.9% (Bolus) IV 1,000 ml/hr, Active 2011 [facility] [facility] 500 mL Infuse over: 0.5 hr, Route: IV, Total Volume: 500, Bolus dose, Priority: STAT, Start date: 05/22/11 23:04:00, Duration: 1 doses or times, Stop date: 05/22/11 23:33:00 Saline Flush 0.9% 5 ml, Route: IVP No Longer [facility] Sugar IVP, Drug Active 2011 [facility] Form: INJ, PRN, PRN Line Flush, Start date: 05/22/11 23:04:00, Duration: 24 hr, Stop date: 05/23/11 23:03:00 Pyridium 200 mg 200 mg, 1 tab, PO Active [facility] Sugar oral tablet PO, TID, 9 2011 [facility] tab, Substitution Allowed Cipro 500 mg oral 500 mg, 1 tab, PO Active [facility] Sugar tablet PO, Q12H, 28 2011 [facility] tab, Substitution Allowed, TAB Pyridium 200 mg, 2 tab, PO No Longer [facility] Sug ar Route: PO, Active 2011 [facility] Drug form: TAB, ONCE, Priority: STAT, Start date: 05/07/11 20:03:00, Stop date: 05/07/11 20:03:00 Cipro 500 mg, 2 tab, PO No Longer [facility] S[place] [facility] Route: PO, Active 2011 [facility] Drug form: TAB, ONCE, Priority: STAT, Start date: 05/07/11 20:03:00, Stop date: 05/07/11 20:03:00 Cipro 500 mg oral 500 mg, 1 tab, PO Active [facility] Sugar tablet PO, BID, 20 2011 [facility] tab, Substitution Allowed Zofran ODT 4 mg 4 mg, 1 tab, PO Active [facility] oral tablet, PO, TID, PRN, 2011 disintegrating 10 tab, Nausea and Vomiting, Substitution Allowed [place] 10/325 oral 1 tab, PO, PO Active [facility] Sugar tablet Q4-6H, PRN, 24 2011 [facility] tab, as needed for pain, Substitution Allowed, Maintenance hydromorphone 1 mg, 0.5 mL, IVP No Longer [facility] Route: IVP, Active 2011 [facility] Drug form: INJ, ONCE, Priority: STAT, Start date: 04/19/11 23:38:00, Stop date: 04/19/11 23:38:00 Insulin regular 10 unit, 0.1 IVP No Longer [facility] mL, Route: Active 2011 [facility] IVP, Drug form: SOLN, ONCE, Priority: STAT, [...] magnesium citrate 150 ml, PO, PO Active [place] 03/26[facility] Sugar 8.85% oral liquid ONCE, 300 ml, 2010 [place] Substitution Allowed, Maintenance, LIQ MiraLax oral 17 gm, PO, PO Active [place] 03/26[facility] Sugar powder for Daily, 255 gm, 2010 [place] reconstitution Substitution Allowed, PDR/REC Phenergan 25 mg 25 mg, 1 tab, PO Active [place] Sugar oral tablet PO, Q6H, PRN, 2010 [place] 15 tab, Nausea, Substitution Allowed Vicodin 5/500 1 tab, PO, PO Active [place] Suga r oral tablet Q4-6H, PRN, 2010 tab, for Pain, Substitution Allowed, Maintenance Sodium Chloride 1,000 mL, IV No Longer [place] S ugar 0.9% (Bolus) IV Rate: 1,000 Active 2010 1,000 mL ml/hr, Infuse over: 1 hr, Route: IV, Total Volume: 1,000, [facility]us Dose, Priority: STAT, Start date: 03/25/11 21:24:00, Duration: 1 doses or times, Stop date: 03/25/11 22:23:00 Insulin regular 10 unit, 0.1 IVP No Longer [place] 03/26/ H Sugar mL, Route: Active 2010 IVP, Drug form: SOLN, ONCE, Priority: STAT, Start date: 03/25/11 21:16:00, Stop date: 03/25/11 21:16:00 Omnipaque 300 30,000 mg, 100 IV Active [place] Sugar mL, Route: IV, 2010 Drug form: SOLN, ONCE, Start date: 03/25/11 21:15:00, Stop date: 03/25/11 21:15:00 Saline Flush 0.9% 5 ml, Route: IVP No Longer [place] Sugar IVP, Drug Active 2010 Form: INJ, PRN, PRN Line Flush, Start date: 03/25/11 20:19:00, Duration: 30 day, Stop date: 04/24/11 20:18:00 ondansetron 4 mg, 2 mL, IVP No Longer [place] Sug ar Route: IVP, Active 2010 Drug form: INJ, ONCE, Priority: STAT, Start date: 03/25/11 20:19:00, Stop date: 03/25/11 20:19:00 morphine Sulfate 4 mg, 0.8 mL, IVP No Longer [place] [facility] Route: IVP, Active 2010 Drug form: [...] [place] [facility] [facility] Route: PO, Active 2010 [facility] Drug form: TAB, [id number], Start date: 02/11/11 11:00:00, Duration: 30 day, Stop date: 03/12/11 23:00:00 magnesium oxide 400 mg, 1 tab, PO No Longer [place] [facility] Route: PO, Active 2010 [facility] Drug form: TAB, Daily, Start date: 02/11/11 9:00:00, Duration: 30 day, Stop date: 03/12/11 9:00:00 Lantus 70 unit, SUB-Q No Longer [facility] Route: SUB-Q, Active 2010 [facility] Drug form: SOLN, Daily, Start date: 02/11/11 9:00:00, Duration: 30 day, Stop date: 03/12/11 9:00:00 Levemir FlexPen 70 unit, 0.7 SUB-Q No Longer [facility] mL, Route: Active 2010 SUB-Q, Drug form: INJ, Daily, Start date: 02/11/11 9:00:00, Duration: 30 day, Stop date: 03/12/11 9:00:00 Saline Flush 0.9% 5 ml, Route: IVP No Longer [place] [facility] IVP, Drug Active 2010 [facility] Form: INJ, Q12H, Start date: 02/11/11 9:00:00, [...] Route: PO, Active 2010 Drug form: TAB, [id number], Start date: 02/11/11 3:00:00, Duration: 30 day, [...] Sliding Scale - mL, Route: Active 2010 [facility] Low SUB-Q, Drug form: SOLN, Sliding Scale, PRN Blood Glucose Results, Start date: 02/11/11 2:05:00, Duration: 30 day, Stop date: 03/13/11 1:04:00 glucagon 1 mg, Route: IM No Longer [facility] [facility] IM, Drug form: Active 2010 [facility] PDR/INJ, PRN, PRN Blood Glucose Results, Start date: 02/11/11 2:05:00, Duration: 30 day, Stop date: 03/13/11 1:04:00 Dextrose 50% 25 gm, 50 ml, IVP No Longer [facility] Syringe Route: IVP, Active 2010 [facility] Drug Form: INJ, PRN, PRN Blood Glucose Results, Start date: 02/11/11 2:05:00, Duration: 30 day, Stop date: 03/13/11 1:04:00 Saline Flush 0.9% 5 ml, Route: IVP No Longer [facility] [facility] IVP, Drug Active 2010 [facility] Form: INJ, PRN, PRN Line Flush, Start date: 02/11/11 2:05:00, Duration: 30 day, Stop date: 03/13/11 1:04:00 nitroglycerin SL 0.4 mg, 1 tab, SL No Longer [facility] Tab Route: SL, Active 2010 [facility] Drug form: TAB, Q5Min, PRN Chest Pain, Start date: 02/11/11 2:05:00, Duration: 3 doses or times, Stop date: Limited # of times morphine Sulfate 2 mg, 0.4 mL, IVP No Longer [facility] [facility] Route: IVP, Active 2010 [facility] Drug form: INJ, Q15Min, PRN Chest Pain, Start date: 02/11/11 2:05:00, Duration: 2 doses or times, Stop date: Limited # of times acetaminophen 650 mg, 2 tab, PO No Longer [facility] Route: PO, Active 2010 [facility] Drug form: TAB, Q4H, PRN Headache, Start date: 02/11/11 2:05:00, Duration: 30 day, Stop date: 03/13/11 2:04:00 diphenhydrAMINE 25 mg, 1 tab, PO No Longer [facility] Route: PO, Active 2010 [facility] Drug form: TAB, Bedtime, PRN Insomnia, Start [...] [place] [facility] Route: PO, Active 2010 [facility] Drug form: TAB, Q8H, PRN Nausea & Vomiting, Start date: 02/11/11 2:05:00, Duration: 30 day, Stop date: 03/13/11 2:04:00 temazepam 15 mg, 1 cap, PO No Longer [place] [facility] Route: PO, Active 2010 [facility] Drug form: CAP, Bedtime, PRN Insomnia, Start date: 02/11/11 2:05:00, Duration: 30 day, Stop date: 03/13/11 2:04:00 aspirin 325 mg 325 mg, 1 tab, PO No Longer [facility] tablet Route: PO, Active 2010 [facility] Drug form: TAB, ONCE, Start date: 02/11/11 2:05:00, Stop date: 02/11/11 2:05:00 morphine Sulfate 2 mg, 0.4 mL, IVP No Longer [place] 02/11 [place] Route: IVP, Active 2010 [facility] Drug form: INJ, ONCE, Priority: STAT, Start date: 02/11/11 0:37:00, Stop date: 02/11/11 0:37:00 Visipaque 48,000 mg, 150 IV No Longer [place] [facility] mL, Route: IV, Active 2010 [facility] Drug form: INJ, ONCE, Start date: 02/10/11 [...] H Sugar ointment Route: TOP, Active 2010 [facility] Drug Form: OINT, ONCE, STAT, Start date: 02/10/11 21:47:00, Stop date: 02/10/11 21:47:00 nitroglycerin 0.4 mg, 1 tab, SL No Longer [place] [facility] Route: SL, Active 2010 [facility] Drug form: TAB, Q5Min, PRN Chest Pain, (Hold if SBP < = 90 mmHg or if < = 100mmHg with symptomatic dizziness), Start date: 02/10/11 21:47:00, Duration: 3 doses or times, Stop date: Limited # of times morphine Sulfate 2 mg, Route: IVP No Longer [place] [facility] IVP, ONCE, Active 2010 [facility] Priority: STAT, Start date: 02/10/11 21:47:00, Stop date: 02/10/11 21:47:00 Saline Flush 0.9% 5 ml, Route: IVP No Longer [place] 02/11 [facility] IVP, PRN, PRN Active 2010 [facility] Line Flush, Start date: 02/10/11 21:47:00, Duration: 30 day, Stop date: 03/12/11 20:46:00 aspirin 325 mg 325 mg, 1 tab, PO No Longer [facility] tablet, enteric Route: PO, Active 2010 [facility] coated Drug form: ECTAB, Daily, Start date: 01/16/11 9:00:00, Duration: 30 day, Stop date: 02/14/11 9:00:00 Requip 1 mg, 1 tab, PO No Longer [place] [facility] Route: PO, Active 2010 [facility] Drug form: TAB, Bedtime, Start date: 01/15/11 21:00:00, Duration: 30 day, Stop date: 02/13/11 21:00:00 Nitrostat 0.4 mg 1 tab, SL, SL Active [facility] sublingual tablet Q5Min, PRN, 2010 [place] tab, Chest Pain, Substitution Allowed metoprolol 25 mg 12.5 mg, PO, PO Active [facility] Sugar oral tablet Q12H, 30 tab, 2010 Substitution Allowed, TAB aspirin 325 mg 9,750 mg, 30 PO Active [facility] S ugar tablet, enteric tab, PO, 2010 coated Daily, 30 tab, Substitution Allowed, ECTAB metoprolol 12.5 mg, 0.5 PO No Longer [place] Sug ar tab, Route: Active 2010 PO, Drug form: TAB, Q12H, Priority: NOW, Start date: 01/15/11 10:36:00, Duration: 30 day, Stop date: 02/14/11 9:00:00 Fioricet oral 1 tab, PO, PO Active [facility] 01/15[facility] Suga r tablet Q4H, PRN, 2010 tab, Headache, Substitution Allowed, Maintenance, TAB Fioricet 1 tab, Route: PO No Longer [place] 01/15[facility] Suga r PO, Drug Form: Active 2010 TAB, Q4H, PRN Headache, Start date: 01/15/11 9:15:00, Duration: 30 day, Stop date: 02/14/11 9:14:00 aspirin 81 mg 81 mg, 1 tab, PO No Longer [facility] Sugar tablet, enteric Route: PO, Active 2010 coated Drug form: ECTAB, Daily, Start date: 01/15/11 9:00:00, Duration: 30 day, Stop date: 02/13/11 9:00:00 Requip 1 mg oral 1 mg, 1 tab, PO Active Sugar tablet PO, Bedtime, 2010 Substitution Allowed ibuprofen 400 mg 400 mg, 1 tab, PO No Longer [place] 01/15[facility] Sugar oral tablet Route: PO, Active 2010 Drug form: TAB, Q8H, Start date: 01/15/11 0:00:00, Duration: 30 day, Stop date: 02/13/11 16:00:00 Saline Flush 0.9% 5 ml, Route: IVP No Longer [place] 01/15[facility] Sugar IVP, Drug Active 2010 Form: INJ, Q12H, Start date: 01/14/11 21:00:00, Duration: 30 day, Stop date: 02/13/11 9:00:00 Levemir FlexPen 70 unit, 0.7 SUB-Q No Longer [place] 01/15/ H [facility] mL, Route: Active 2010 [facility] SUB-Q, Drug form: INJ, Bedtime, Start date: 01/14/11 21:00:00, Duration: 30 day, Stop date: 02/12/11 21:00:00 Lantus 70 unit, SUB-Q No Longer [place] [facility] Route: SUB-Q, Active 2010 [facility] Bedtime, Start date: 01/14/11 21:00:00, Duration: 30 day, Stop date: 02/12/11 21:00:00 glucagon 1 mg, Route: IM No Longer [place] [facility] IM, Drug form: Active 2010 [facility] PDR/INJ, PRN, PRN Blood Glucose Results, Start date: 01/14/11 19:22:00, Duration: 30 day, Stop date: 02/13/11 19:21:00 Insulin (Novolog) 6 unit, 0.06 SUB-Q No Longer [place] [facility] Sliding Scale - mL, Route: Active 2010 [facility] Very High SUB-Q, Drug form: SOLN, Sliding [...] Longer [place] [facility] IVP, Drug Active 2010 [facility] Form: INJ, PRN, PRN Line Flush, Start [...] 400 mg 1 tab, PO, PO Active [facility] S ugar oral tablet Q4H, PRN, 2010 tab, Pain, Substitution Allowed acetaminophen-hyd 1 tab, PO, PO Active [facility] Sugar rocodone 500 mg-5 Q4-6H, PRN, [...] type Reported Ritalin Assertion Drug Active allergy [facility] Immunizations No Data Provided for This Section Results Order Name Results Value Reference Date Interpretation Comments Nely rce Range BACTERIAL Strep Negative Negative 02/26 [facility] - SEROLOGY pneumoniae (02/25/17 9:02 PM) /2016 Hospital Ag BACTERIAL Source Strep Cerebral 02/26 [facility] SER[facility]Y Spinal /2016 Hospital Fluid BODY Tube Num CSF 1 02/26 [facility] FLUIDS /2016 Hospital BODY Clarity CSF Clear Clear 02/26 [facility] FLUIDS (02/25/17 9:02 PM) /2016 [facility] BODY Color CSF Colorless Colorless 02/26 [facility] FLUIDS (02/25/17 9:02 PM) /2016 [facility] BODY Supernat CSF Colorless Colorless 02/26 [facility] FLUIDS (02/25/17 9:02 PM) /2016 [facility] BODY WBC CSF 2 0 - 53 02/26 [facility] FLUIDS /2016 Hospital BODY RBC CSF 1 0 - 03 02/26 [facility] FLUIDS /2016 Hospital BODY RBC CSF 1 0 - 03 02/26 [facility] FLUIDS /2017 Hospital BODY WBC CSF 2 0 - 53 02/26 [facility] FLUIDS /2016 Hospital BODY Supernat CSF Colorless Colorless 02/26 [facility] FLUIDS (02/25/17 9:02 PM) /2016 [facility] BODY Clarity CSF Clear Clear 02/26 [facility] FLUIDS (02/25/17 9:02 PM) /2016 [facility] BODY Tube Num CSF 4 02/26 [facility] FLUIDS /2016 Hospital BODY Color CSF Colorless Colorless 02/26 [facility] FLUIDS (02/25/17 9:02 PM) /2016 [facility] BODY Glucose CSF 219 45 - 80 02/26 [facility] FLUIDS Comment: Hospital Critical Result(s) called to Charlotte Hodge at _02/25/2017 21:45 bybz_. Read back OK.

NOTE: RESULTS autoverfied BODY Protein CSF 55 15 - 45 02/26 [facility] FLUIDS /2016 Hospital FUNGAL - Crypto Ag Negative Negative 02/26 [facility] SEROLOGY CSF (02/25/17 9:02 PM) /2016 [facility] IMMUNOLOGY VDRL Scr CSF Non Reactive Non 02/26 [facility] (02/25/17 9:02 PM) Reactive /2016 [facility] [...] curve analysis. MOLECULAR Source HSV Cerebral 02/26 [facility] DIAGNOSTIC Spinal /2016 [facility] Fluid VIRAL - [facility]17 9:02 PM[facility] CHEM PANEL A/G Ratio 0.9 0.7 - 1.6 02/26 [facility] CHEM PANEL B/C Ratio 23 6 - 25 02/26 [facility] CHEM PANEL Globulin 4.3 2.7 - 4.2 02/26 [facility] CHEM PANEL AGAP 11.3 10.0 - 02/26 [facility] 20.0 [facility] CHEM PANEL eGFR 101 02/26 [facility] Comment: The Hospital eGFR is calculated using [...] PANEL BUN 16 7 - 22 02/26 [facility] CHEM PANEL ALANINE 17 0 - 65 02/26 [facility] RASE CHEM PANEL Total 8.2 6.4 - 8.4 02/26 [facility] Protein [facility] CHEM PANEL Potassium 4.3 3.5 - 5.1 02/26 [facility] L[facility] /2016 [facility] CHEM PANEL Sodium Lvl 130 135 - 145 02/26 [facility] /2016 [facility] CHEM PANEL Creatinine 0.70 0.50 - 02/26 [facility] Lvl 1.40 /2016 Hospital CHEM PANEL Glucose Lvl 340 70 - 99 02/26 [facility] /2016 [facility] CHEM PANEL Calcium Lvl 8.9 8.5 - 10.5 02/26 [facility] /2017 [facility] CHEM PANEL Chloride Lvl 97 95 - 109 02/26 [facility] /2016 [facility] CHEM PANEL CO2 26 24 - 32 02/26 [facility] /2017 Hospital CHEM PANEL Alk Phos 158 39 - 136 02/26 [facility] /2017 Hospital CHEM PANEL ASPARTATE 16 0 - 37 02/26 [facility] TRANSAMINASE [facility] CHEM PANEL Albumin Lvl 3.9 3.5 - 5.0 02/26 [facility] /2016 [facility] CHEM PANEL Lactic Acid 1.8 0.5 - 2.2 02/26 [facility] Lvl /2016 Hospital HEMATOLOGY Platelet 305 133 - 450 02/26 [facility] /2017 Hospital HEMATOLOGY MCV 82.2 80.0 - 02/26 [facility] 98.0 /2016 Hospital HEMATOLOGY Hct 37.1 36.0 - 02/26 [facility] 48.0 /2016 Hospital HEMATOLOGY MPV 7.4 7.4 - 10.4 02/26 [facility] /2017 Hospital HEMATOLOGY RDW 14.1 11.5 - 02/26 [facility] 14.5 /2016 Hospital HEMATOLOGY MCH 27.6 27.0 - 02/26 [facility] 31.0 /2016 Hospital HEMATOLOGY MCHC 33.6 32.0 - 02/26 [facility] 36.0 /2017 Hospital HEMATOLOGY RBC X 10x6 4.52 4.20 - 02/26 [facility] 5.40 /2016 Hospital HEMATOLOGY Hgb 12.5 12.0 - 02/26 [facility] 16.0 /2016 Hospital HEMATOLOGY WBC X 10x3 [...] Hospital HEMATOLOGY Segs 53.4 45.0 - 02/26 [facility] 75.0 /2016 Hospital HEMATOLOGY Lymphocytes 39.1 20.0 [...] AND UA 0.2 0.1 - 1.0 02/26 [facility] STOOL Urobilinogen /2016 Hospital URINE AND UA Nitrite Negative Negative 02/26 [facility] (02/25/17 7:42 PM) [facility]pi [facility] URINE AND UA Bili Negative Negative 02/26 [facility] STOOL *NA* /2016 Hospital (02/25/17 7:42 PM) URINE AND UA Ketones Negative Negative 02/26 [facility] *NA* /2016 [facility] (02/25/17 7:42 PM) URINE AND UA Bacteria Many /HPF None Seen 02/26 [facility] /HPF /2016 Hospital URINE AND UA WBC 0-2 /HPF None Seen 02/26 [facility] /HPF /2016 Hospital URINE AND UA RBC 0-2 /HPF 0 - 2 02/26 [facility] STOOL /2016 Hospital URINE AND UA Leuk Est Negative Negative 02/26 [facility] ST[facility] (02/25/17 7:42 PM) /2016 [facility] URINE AND UA Sq Epi Few /LPF Few /LPF 02/26 [facility] ST[facility] URINE AND UA Blood Negative Negative 02/26 [facility] STOOL (02/25/17 7:42 PM) [facility]pi [facility] URINE AND UA Glucose >=1000 Negative 02/26 [facility] ST[facility] mg/dL mg/dL /2016 Hospital URINE AND UA Protein Negative Negative 02/26 [facility] (02/25/17 7:42 PM) [facility]pi [facility] URINE AND UA pH 6.0 5.0 - 8.0 02/26 [facility] STOOL /2016 Hospital URINE AND UA Spec Grav 1.010 <=1.030 02/26 [facility] URINE AND UA Color Yellow Yellow 02/26 [facility] STOOL *NA* /2016 Hospital (02/25/17 7:42 PM) URINE AND UA Turbidity Slight Cloudy Clear 02/26 [facility] STOOL (02/25/17 7:42 PM) Hospi [facility] VIRAL - Influ B Negative Negative 02/26 [facility] SEROLOGY (02/25/17 7:42 PM) [facility]osp [facility] VIRAL - Influ A Negative Negative 02/26 [facility] SEROLOGY (02/25/17 7:42 PM) [facility]osp [facility] CHEM PANEL eGFR 121 01/26 [facility] Comment: The Hospital eGFR is calculated using [...] Alk Phos 165 39 - 136 01/26 [facility] CHEM PANEL B/C Ratio 12 6 - 25 01/26 [facility] CHEM PANEL Globulin 3.3 2.7 - 4.2 01/26 [facility] CHEM PANEL Albumin Lvl 2.4 3.5 - 5.0 01/26 [facility] CHEM PANEL Total 5.7 6.4 - 8.4 01/26 [facility] Protein [facility] CHEM PANEL AGAP 9.7 10.0 - 01/26 [facility] 20[facility]0 [facility] CHEM PANEL Glucose Lvl 261 70 - 99 01/26 [facility] CHEM PANEL Calcium Lvl 7.4 8.5 - 10.5 01/26 [facility] CHEM PANEL A/G Ratio 0.7 0.7 - 1.6 01/26 [facility] CHEM PANEL Creatinine 0.40 0.50 - 01/26 [facility] Lvl 1.40 [facility] CHEM PANEL BUN 5 7 - 22 01/26 [facility] 2017 Hospital CHEM PANEL ASPARTATE 37 0 - 37 01/26 [facility] TRANSAMINASE [facility] CHEM PANEL ALANINE 44 0 - 65 01/26 [facility] RASE CHEM PANEL Potassium 3.7 3.5 - 5.1 01/26 [facility] CHEM PANEL Sodium Lvl 137 135 - 145 01/26 [facility] CHEM PANEL CO2 25 24 - 32 10 [facility] CHEM PANEL Chloride Lvl 106 95 - 109 01/26 [facility] CARDIAC Troponin-I <0.02 0.00 - 01/25 [facility] ENZYMES 0.40 [facility] PARATHYROI Ca Norm WB 0.99 1.05 - 01/25 [facility] D PROFILE 1. [facility] PARATHYROI Ca Ion WB 1.01 1.05 - 01/25 [facility] D PROFILE 1. Hospital CHEM PANEL Albumin Lvl 2.6 3.5 - 5.0 01/25 [facility] CHEM PANEL eGFR 112 01/25 [facility] Comment: The Hospital eGFR is calculated using [...] CHEM PANEL Creatinine 0.50 0.50 - 01/25 [facility] Lvl 1.40 [facility] CHEM PANEL Sodium Lvl 135 135 - 145 01/25 [facility] CHEM PANEL Potassium 3.6 3.5 - 5.1 01/25 [facility] CHEM PANEL CO2 25 24 - 32 01/25 [facility] CHEM PANEL Chloride Lvl 105 95 - 109 01/25 [facility] CHEM PANEL AGAP 8.6 10.0 - 01/25 [facility] 20.0 [facility] CHEM PANEL Calcium Lvl 6.9 8.5 - 10.5 01/25 [facility] Comment: Hospital Critical Result(s) called to uyen martinez_ at _01/25/2017 15:47 by_bz. Read back OK. CHEM PANEL Glucose Lvl 263 70 - 99 01/25 [facility] CHEM PANEL BUN 8 7 - 22 01/25 [facility] CHEM PANEL Phosphorus 2.7 2.5 - 4.5 01/25 [facility] CHEM PANEL eGFR 106 01/25 [facility] Comment: The Hospital eGFR is calculated using [...] CHEM PANEL Creatinine 0.60 0.50 - 10 [facility] Lvl 1.40 [facility] CHEM PANEL BUN 9 7 - 22 01/25 [facility] CHEM PANEL Glucose Lvl 405 70 - 99 01/25 [facility] Comment: Hospital Critical Result(s) called to Dung Mullins at 01/25/2017 04:39 by CV. Read back OK. CHEM PANEL AGAP 12.5 10.0 - 01/25 [facility] 20.0 [facility] CHEM PANEL Potassium 3.5 3.5 - 5.1 01/25 [facility] CHEM PANEL Chloride Lvl 102 95 - 109 01/25 [facility] CHEM PANEL CO2 23 24 - 32 01/25 [facility] CHEM PANEL Calcium Lvl 7.1 8.5 - 10.5 01/25 [facility] CHEM PANEL Sodium Lvl 134 135 - 145 01/25 [facility] CHEM PANEL Magnesium 1.7 1.8 - 2.4 01/25 [facility] HEMATOLOGY MPV 7.4 7.4 - 10.4 01/25 [facility] HEMATOLOGY RDW 13.6 11.5 - 01/25 [facility] 14.5 [facility] HEMATOLOGY Platelet 244 133 - 450 01/25 [facility] 2017 Hospital HEMATOLOGY MCHC 33.4 32.0 - 01/25 [facility] 36.0 [facility] HEMATOLOGY MCV 82.5 80.0 - 01/25 [facility] 98.0 [facility] HEMATOLOGY MCH 27.6 27.0 - 01/25 [facility] 31.0 [facility] HEMATOLOGY Hgb 10.7 12.0 - 01/25 [facility] 16.0 [facility] HEMATOLOGY Hct 32.0 36.0 - 01/25 [facility] 48.0 [facility] HEMATOLOGY WBC X 10x3 5.5 3.7 - 10.4 01/25 [facility] HEMATOLOGY RBC X 10x6 3.88 4.20 - 01/25 [facility] 5.40 [facility] HEMATOLOGY Monocytes 7.2 2.0 - [...] Hospital HEMATOLOGY Segs 55.0 45.0 - 01/25 [facility] 75.0 [facility] SPECIAL Hgb A1C >16.0 % <=5.6 % 01/25 [facility] CHEMISTRY Hospital URINE AND UA Sq Epi Occasional Few /LPF 01/25 [facility] STOOL /LPF /2016 Hospital URINE AND UA WBC 11-20 /HPF None Seen 01/25 [facility] /HPF /2016 Hospital URINE AND UA Bacteria Moderate None Seen 01/25 [facility] STOOL /HPF /HPF /2016 Hospital URINE AND UA RBC 0-2 /HPF 0 - 2 01/25 [facility] STOOL /2016 Hospital URINE AND UA Leuk Est Negative Negative 01/25 [facility] STOOL (01/24/17 11:54 PM) /2016 [facility] URINE AND UA Nitrite Positive Negative 01/25 [facility] *ABN* /2016 Hospital (01/24/17 11:54 PM) URINE AND UA Blood Negative Negative 01/25 [facility] STOOL (01/24/17 11:54 PM) [facility]osp [facility] URINE AND UA Bili Negative Negative 01/25 [facility] STOOL *NA* /2016 Hospital (01/24/17 11:54 PM) URINE AND UA Glucose >=1000 Negative 01/25 [facility] STOOL mg/dL mg/dL /2016 Hospital URINE AND UA Protein Negative Negative 01/25 [facility] (01/24/17 11:54 PM) [facility]osp [facility] URINE AND UA 0.2 0.1 - 1.0 01/25 [facility] STOOL Urobilinogen /2016 Hospital URINE AND UA Ketones Negative Negative 01/25 [facility] *NA* /2016 Hospital (01/24/17 11:54 PM) URINE AND UA pH 5.5 5.0 - 8.0 01/25 [facility] STOOL /2016 Hospital URINE AND UA Spec Grav <=1.005 <=1.030 01/25 [facility] *NA* /2016 Hospital (01/24/17 11:54 PM) URINE AND UA Color Yellow Yellow 01/25 [facility] STOOL *NA* /2016 Hospital (01/24/17 11:54 PM) URINE AND UA Turbidity Clear Clear 01/25 [facility] (01/24/17 11:54 PM) [facility]osp [facility] CARDIAC Total CK 62 12 - 191 01/25 [facility] ENZYMES [facility] CARDIAC CK MB <1.0 0.5 - 3.6 01/25 [facility] CARDIAC Troponin-I <0.02 0.00 - 01/25 [facility] EN[facility]ES 0.40 Hospital CARDIAC CK-MB INDEX <1.6 0.0 - 2.5 01/25 [facility] CHEM PANEL ASPARTATE 14 0 - 37 01/25 [facility] TRANSAMINASE [facility] CHEM PANEL Bili Total 0.5 0.2 - 1.3 01/25 [facility] CHEM PANEL ALANINE 37 0 - 65 01/25 [facility]IN[facility]RANS[facility] RASE CHEM PANEL Alk Phos 222 39 - 136 01/25 [facility] CHEM PANEL A/G Ratio 0.7 0.7 - 1.6 01/25 [facility] CHEM PANEL Globulin 4.7 2.7 - 4.2 01/25 [facility] CHEM PANEL Albumin Lvl 3.5 3.5 - 5.0 01/25 [facility] CHEM PANEL B/C Ratio 16 6 - 25 01/25 [facility] 2017 Hospital CHEM PANEL Total 8.2 6.4 - 8.4 01/25 [facility] Protein [facility] CHEM PANEL Lipase Lvl 168 73 - 393 01/25 [facility] 2017 [facility] HEMATOLOGY Hgb 13.7 12.0 - 01/25 [facility] 16.0 [facility] HEMATOLOGY Hct 41.6 36.0 - 01/25 [facility] 48.0 [facility] HEMATOLOGY MCV 83.6 80.0 - 01/25 [facility] 98.0 /2016 Hospital HEMATOLOGY MCH 27.5 27.0 - 01/25 [facility] 31.0 /2017 Hospital HEMATOLOGY MCHC 32.9 32.0 - 01/25 [facility] 36.0 /2016 Hospital HEMATOLOGY RDW 13.6 11.5 - 10 [facility] 14.5 [facility] HEMATOLOGY Platelet 314 133 - 450 01/25 [facility] /2017 Hospital HEMATOLOGY MPV 8.1 7.4 - 10.4 01/25 [facility] /2017 Hospital HEMATOLOGY WBC X 10x3 5.8 3.7 - 10.4 01/25 [facility] /2017 Hospital HEMATOLOGY RBC X 10x6 4.97 4.20 - 01/25 [facility] 5.40 /2016 Hospital HEMATOLOGY Monocytes # 0.4 [...] Hospital HEMATOLOGY Segs 59.9 45.0 - 01/25 [facility] 75.0 /2016 Hospital HEMATOLOGY Lymphocytes 31.7 20.0 - 01/25 [facility] 40.0 [facility] BEDSIDE Comment1 Notify 02/05 NA GLUCOSE KIRIT/ /2011 [facility] TESTING BEDSIDE Gluc POC 293 70 - 99 02/05 HI <sup>1</sup>I GLUCOSE [facility] nterpretive [facility] TESTING Data: Upper Reportable Limit: 200 [...] values reflect the clinical guidelines
of the [employer]. CHEMISTRY Chloride Lvl 98 95 [...] values reflect the clinical guidelines
of the [employer]. CHEMISTRY Chloride Lvl 100 95 [...] - 99 10/24 CRIT <sup>3</sup>I [facility] GLUCOSE [facility] [place] TESTING Data: Upper Reportable Limit: 200 mg/dL. BEDSIDE Gluc POC 273 65 - 110 05/23 HI <sup>1</sup>I [facility] [place] [facility] Data: Upper Reportable Limit: 200 mg/dL. BEDSIDE Comment1 Notify 05/23 NA [facility] GLUCOSE RN/ [place] TESTING BEDSIDE Gluc POC >400 65 - 110 05/23 CRIT <sup>2</sup>I [facility] Data: Upper Reportable [...] on the clinical recommendatio ns of the [employer] [employer]. CHEMISTRY BUN 12 7 - [...] on the clinical recommendatio ns of the [employer] [employer]. CHEMISTRY Creatinine 0.8 0.5 - [...] on the clinical recommendatio ns of the [place] [employer]. CHEMISTRY Lipase Lvl 171 73 [...] [place] (03/25/2011 20:00:00) [place] URIN[place] UA [place] Yeast Occasional /HPF None Seen 03/26 ABN [...] on the clinical recommendatio ns of the [employer] [employer]. CHEMISTRY BUN 11.0 7 - [...] gar (02/10/2011 22:26:00) ?? [place] URINALYSIS UA [place] Yeast Occasional /HPF >None Seen 02/11 ABN [...] on the clinical recommendatio ns of the [employer] [employer]. CHEMISTRY Sodium Lvl 131.0 135 [...] - 110 01/15 HI <sup>1</sup>I [facility] GLUCOSE [facility] [place] TESTING Data: Upper Reportable Limit: 200 mg/dL. BEDSIDE Comment1 Notify 01/15 NA [facility]UCOSE RN/[place] TESTING BEDSIDE Comment1 Notify 01/15 NA [facility] GLUCOSE RN/[facility] [place] TESTING BEDSIDE Gluc POC 88.0 65 - 110 01/15 Normal <sup>2</sup>I [place] GLUCOSE [facility] [place]pret[place] TESTING Data: Upper Reportable Limit: 200 mg/dL. BEDSIDE Comment1 Notify 01/15 NA [facility] GLUCOSE RN/[place] TESTING BEDSIDE Gluc POC 70.0 65 - 110 01/15 Normal <sup>3</sup>I [place] GLUCOSE [facility] nterpretive [place] TESTING Data: Upper Reportable [...] on the clinical recommendatio ns of the [place] [employer]. CHEMISTRY LDL 96.0 0 - [...] on the clinical recommendatio ns of the [place] [employer]. CHEMISTRY BUN 9.0 7 - [...] 27.0 - 01/14 Normal [facility] 31.0 /2010 [facility] HEMATOLOGY Hgb 13.2 12.0 - 10 Normal [place] 16.0 /2010 [facility] HEMATOLOGY RBC 4.6 4.20 - 01/14 Normal [place] 5.40 /2010 [facility] HEMATOLOGY Hct 38.9 36.0 - 01/14 Normal [facility] 48.0 /2010 [facility] HEMATOLOGY MCV 84.6 81.0 - 01/14 Normal [facility] 99.0 /2010 [facility] HEMATOLOGY WBC 5.6 3.7 - 10.4 10 Normal [place] /2010 [facility] HEMATOLOGY PT 13.6 12.0 - 01/14 Normal [place] 14.7 /2010 [facility] HEMATOLOGY PTT 30.2 22.9 - 10 Normal <sup>10</sup> Sean r 35.8 [place] [place] Data: Heparin Therapeutic Range: 57 - 92 Seconds HEMATOLOGY INR 1.04 0.85 - 01/14 Normal <sup>8</sup>I [facility] r 1.17 nterpretive [facility] Data: RECOMMENDED RANGES FOR PROTIME INR: 2.0-3.0 for most medical and surgical thromboemboli c states. 2.5-3.5 for artificial heart valves and recurrent embolism. INR SHOULD BE USED ONLY FOR PATIENTS ON STABLE ANTICOAGULANT THERAPY. HEMATOLOGY D-Dimer 1.5 01/14 NA <sup>9</sup>I [facility] r nterpretive [facility] Data: In DIC, quantitative D-Dimer is generally [...] and I concur with the interpretation. 02/25/2017 [facility] Clinical Indication: Headache, fever, neck pain [...] No mass, hemorrhage, or subacute stroke. SL: [id number] Spine cervical wo CT cervical spine without contrast 02/25/2017 [facility] [address] Clinical Indication: - neck [...] ABDOMEN AND PELVIS WITH CONTRA ST 01/24/2017 [facility] contrast [address] Clinical Indication: Acute l [...] series DX RIGHT FOOT 3 VIEW 12/26/2016 [facility] HISTORY: Toe injury. No comparisons. FINDINGS: There [...] Comments Source Systolic (mm Hg) 111 02/26/2017 [facility] Diastolic (mm Hg) 64 02/26/2017 [facility] Respitory Rate 16 02/26/2017 [facility] Temperature Oral (F) 97.6 F 02/26/2017 [facility] Heart Rate 85 02/26/2017 [facility] Respitory Rate 16 02/26/2017 [facility] Systolic (mm Hg) 114 02/26/2017 [facility] Diastolic (mm Hg) 66 02/26/2017 [facility] Heart Rate 82 02/26/2017 [facility] Temperature Oral (F) 98.8 F 02/26/2017 [facility] Weight 49.545 02/26/2017 [facility] BMI Calculated 18.75 02/26/2017 [facility] Height 162.56 cm 02/26/2017 [facility] Systolic (mm Hg) 109 02/26/2017 [facility] Diastolic (mm Hg) 65 [facility] 84 02/26[facility] Respitory Rate 14 [facility] Rate 18 02/25/2017 [facility] Systolic (mm Hg) 114 02/25/2017 [facility] Diastolic (mm Hg) 63 02/25/2017 [facility] Temperature Oral (F) 98.2 F 02/25/2017 [facility] Heart Rate 78 02/25/2017 [facility] BMI Calculated 18.75 02/25/2017 [facility] Weight 49.545 02/25/2017 [facility] Height 162.56 cm 02/25/2017 [facility] Heart Rate 77 02/25/[facility] Respitory Rate 18 02/25/2017 [facility] Temperature Oral (F) 97.8 F 02/25/2017 [facility] Systolic (mm Hg) 147 02/25/2017 [facility] Diastolic (mm Hg) 80 02/25/2017 [facility] Weight 49.659 02/25/2017 [facility] Height 167.64 cm 02/25/2017 [facility] Temperature Oral (F) 97.8 F [facility]/25/2017 [facility] BMI Calculated 17.67 02/25/2017 [facility] Systolic (mm Hg) 145 02/25/2017 [facility] Diastolic (mm Hg) 80 02/25/2017 [facility] Respitory Rate 18 02/25/2017 [facility] Heart Rate 77 02/25/2017 [facility] Temperature Oral (F) 98.5 F 01/26/[facility] Heart [facility] 87 01/26/[facility] Respitory Rate 20 01/26/2017 [facility] Systolic (mm Hg) 116 01/26/2017 [facility] Diastolic (mm Hg) 69 01/26/2017 [facility] Heart Rate 79 01/26/2017 [facility] Respitory Rate 18 01/[facility] Temperature Oral (F) 98.4 F [facility]/26/[facility] Systolic (mm Hg) 129 01/26/2017 [facility] Diastolic (mm Hg) 80 01/26/2017 [facility] Temperature Oral (F) 98.1 F 01/26/2017 [facility] Heart Rate 78 01/26/2017 [facility] Systolic (mm Hg) 120 01/26/2017 [facility] Diastolic (mm Hg) 69 01/26/2017 [facility] Respitory Rate 20 01/26/2017 [facility] Height 157.48 cm 01/25/2017 [facility] Weight 51.449 01/25/2017 [facility] BMI Calculated 20.75 01/25/2017 [facility] Weight 52.273 01/25/2017 [facility] BMI Calculated 19.78 01/25/2017 [facility] Height 162.56 cm 01/25/2017 [facility] Systolic (mm Hg) 121 12/27/2016 [facility] Diastolic (mm Hg) 81 12/27/2016 [facility] Respitory Rate 16 12/27/2016 [facility] Heart Rate 82 12/27/2016 [facility] Temperature Oral (F) 98.3 F 12/27/2016 [facility] Temperature Oral (F) 98.4 F 12/27/2016 [facility] Respitory Rate 18 12/27/2016 [facility] Systolic (mm Hg) 126 12/27/2016 [facility] Diastolic (mm Hg) 81 12/27/2016 [facility] BMI Calculated 18.92 12/27/2016 [facility] Weight 50 12/27/2016 [facility] Heart Rate 89 12/27/2016 [facility] Height 162.56 cm 12/27/2016 [facility] Height 162.56 cm 02/06/2012 [place] Weight 47.273 02/06/2012 [facility] Height 162.56 cm 11/29/2011 [place] Weight 50.000 11/29/2011 [place] Height 162.56 cm 10/25/2011 [place] Weight 54.545 10/25/2011 [place] Height 162.56 cm 05/23/2011 [place] Weight 50.000 05/23/2011 [place] Temperature Oral (F) 98.5 F 05/08/2011 [place] Diastolic (mm Hg) 57 05/08/2011 [place] and Systolic (mm Hg) 107 05/08/2011 [place] Heart Rate 57 05/08/2011 [place] Respitory Rate 16 05/08/2011 [facility] [place] Weight 50.000 05/08/2011 [facility] [place] Height 162.56 cm 05/08/2011 [place] Temperature Oral (F) 98.6 F 05/08/2011 [facility] [place] Diastolic (mm Hg) 70 05/08/2011 [facility] [place] and Systolic (mm Hg) 127 05/08/2011 [facility] [place] Heart Rate 83 05/08/2011 [facility] [place] Respitory Rate 16 05/08/2011 [facility] [place] Respitory Rate 18 04/20/2011 [place] Heart Rate 79 04/20/2011 [facility] [place] Diastolic (mm Hg) 75 04/20/2011 [facility] [place] [facility] Systolic (mm Hg) 119 04/20/2011 [facility] [place] Diastolic (mm Hg) 97 04/20/2011 [facility] [place] [facility] Heart Rate 80 04/20/2011 [facility] [place] Systolic (mm Hg) 148 04/20/2011 [facility] [place] Respitory Rate 20 04/20/2011 [place] Weight 50.000 04/20/2011 [facility] [place] Systolic (mm Hg) 122 04/20/2011 [place] Temperature Oral (F) 98.0 F 04/20/2011 [place] Respitory Rate 18 04/20/2011 [place] Heart Rate 79 04/20/2011 [facility] [place] Diastolic (mm Hg) 75 04/20/2011 [place] [facility] Temperature Oral (F) 98.0 F 03/26/2011 [place] Respitory Rate 18 03/26/2011 [place] Heart Rate 69 03/26/2011 [facility] [place] Systolic (mm Hg) 112 03/26/2011 [place] Diastolic (mm Hg) 60 03/26/2011 [facility] [place] [facility] Height 160.02 cm 03/26/2011 [facility] [place] Weight 53.636 03/26/2011 [place] Temperature Oral (F) 99.0 F 03/26/2011 [place] Diastolic (mm Hg) 67 03/26/2011 [facility] [place] [facility] Systolic (mm Hg) 115 03/26/2011 [facility] [place] Respitory Rate 16 03/26/2011 [place] Heart Rate 75 03/26/2011 [facility] [place] Diastolic (mm Hg) 51.0 02/11/2011 [facility] [place] and Respitory Rate 14.0 02/11/2011 [facility] [place] Systolic (mm Hg) 100.0 02/11/2011 [facility] [place] Heart Rate 59.0 02/11/2011 [place] Temperature Oral (F) 98.1 F 02/11/2011 [facility] [place] Diastolic (mm Hg) 54.0 02/11/2011 [place] [facility] Systolic (mm Hg) 102.0 02/11/2011 [place] Temperature Oral (F) 97.5 F 02/11/2011 [place] Heart Rate 61.0 02/11/2011 [facility] [place] Respitory Rate 16.0 02/11/2011 [place] Height 162.56 cm 02/11/2011 [facility] [place] Weight 56.96 02/11/2011 [facility] [place] Respitory Rate 18.0 02/11/2011 [place] Temperature Oral (F) 98.0 F 02/11/2011 [place] Heart Rate 61.0 02/11/2011 [place] Systolic (mm Hg) 111.0 02/11/2011 [place] Diastolic (mm Hg) 61.0 02/11/2011 [place] [facility] Weight 52.273 02/11/2011 [place] Height 162.56 cm 02/11/2011 [place] Diastolic (mm Hg) 59.0 01/15/2011 [place] [facility] Systolic (mm Hg) 105.0 01/15/2011 [place] Temperature Oral (F) 97.0 F 01/15/2011 [place] Heart Rate 59.0 01/15/2011 [place] Respitory Rate 18.0 01/15/2011 [place] Temperature Oral (F) 97.2 F 01/15/2011 [place] Respitory Rate 18.0 01/15/2011 [place] Heart Rate 71.0 01/15/2011 [place] Diastolic (mm Hg) 59.0 01/15/2011 [place] Systolic (mm Hg) 106.0 01/15/2011 [place] Respitory Rate 18.0 01/15/2011 [place] Systolic (mm Hg) 110.0 01/15/2011 [place] Heart Rate 62.0 01/15/2011 [place] Temperature Oral (F) 97.9 F 01/15/2011 [place] Diastolic (mm Hg) 58.0 01/15/2011 [place] Height 162.56 cm 01/15/2011 [place] Weight 56.818 01/15/2011 [place] Height 162.56 cm 01/14/2011 [place] Weight 50.0 01/14/2011 [place] Systolic (mm Hg) 115.0 12/22/2010 [place] Diastolic (mm Hg) 78.0 12/22/2010 [place] Peripheral Pulse Rate 74.0 12/22/2010 [place] Respitory Rate 16.0 12/22/2010 [place] Height 162.56 cm 12/22/2010 [place] Weight 52.273 12/22/2010 [place] Temperature Oral (F) 98.2 F 12/22/2010 [place] Respitory Rate 16.0 12/22/2010 [place] Peripheral Pulse Rate 75.0 12/22/2010 [place] Diastolic (mm Hg) 77.0 12/22/2010 [place] Systolic (mm Hg) 125.0 12/22/2010 [place] En[place] Location Location Encounter Encounter Reason Attending ADM [place] Stat Source Details Type Number For Provider Date Date Visit Emergency [id number] ABD TRA PSYK 08/15 08/16 Acti ve [facility] 8 PAIN, /2009 [place] Emergency [id number] UPPER BE 09/20 09/21 [facility] A[facility]OM[facility] [place] /2009 [place] Emergency [id number] EAR PAIN TRA PSYK 10/09 10/09 [facility] [place] [facility] [id number] CHEST TAJUDDIN 10/31 11/02 Active [place] 1 PAIN CONSUELO /2009 [place] Emergency [id number] ABDOMINA TROY 01/03 01/03 Active [place] 2 L PAIN ROW[place] /2009 [place] OU [id number] ABDOMINA CHRISTOPHER 01/05 01/07 Activ e [place] 4 L PAIN GONZALEZ /2009 [place] Emergency [id number] [place] TRA PSYK 07/21 07/21 Acti ve [place] 6 HIGH,VAG /2010 [place] BLEEDING Emergency [id number] FACIAL TROY 10/07 10/07 Active [place] 7 AND NECK ROWAN /2010 [place] Inpatient [id number] FACIAL TARAH 10/09 10/13 Active [facility] 8 NECK BRIDGES /2010 [place] Emergency [id number] MOISE MONTEMAYOR 12/22 12/22 Disc harg [facility] ed [place] OU [id number] CHEST DEE CROCKETT 01/14 01/15 Active [facility] 0 PAIN /2010 [place] OU [id number] CHEST DEE CROCKETT 02/11 02/11 [facility], /2010 [place] S,HYPERG LYCEMIA, UTI Emergency [id number] LOWER LIZY 03/25 03/26 Active [facility] [place] 2 ABD WISEMAN /2010 [place] HIGH [place] Emergency [id number] RIGHT LIZY 04/19 04/20 Active [facility] 3 ABDOMINA WISEMAN /2011 [place] BLOOD IN URINE Emergency [id number] BLEEDING TROY 05/07 05/07 Active [facility] 4 / RT [place]OWAN /2011 [place] PAIN Emergency [id number] ABDOMINA VIMI SHOEMAKER 05/22 05/23 Ac tive [facility] 5 L PAIN /2011 [place] BLOOD [place] Emergency [id number] LEFT VIMI SHOEMAKER 10/23 10/24 Acti ve [facility] 6 LOWER /2011 [place] L PAIN Emergency [id number] BLOOD VIMI SHOEMAKER 11/27 11/27 Acti ve [facility] 7 SUGAR /2011 [place]OBLEM [place] YEIMY [id number] [place] 02/05 02/05 Discharg [facility] 9 BAVISHI ed [facility] Outpatient [id number] ABDOMINA GUIDO 02/16 Active [facility] 8 [facility] [id number] Moise Montemayor 12/27 12/27 JUSTO [place] [facility] [id number] Greg 01/25 01/26 Jona 1 Kayla /2016 [place] [facility] Emergency [id number] Rudolph 02/25 02/25 J[place] 2 Pilar Jr [facility] Emergency [id number] Rudolph 02/26 02/26 Jona 3 [place] [facility] Outpatient [id number] ABD PAIN MESHA Activ e [facility] 3 [facility] Procedures Procedure Code Date Perfomer Comments Source Appendectomy [id number] [facility] Cholecystectomy [id number] [facility] Partial hysterectomy [id number] [facility] Assessment and Plan Assessment and Plan Date Source Extracted from:Title: Progress Note * 01/26/2017 [facility] Author: Marie June MD Date: 01/25/17 Impression and Plan The patient was seen and examined by me with the resident/RUBBER 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 [...]
--- OUTSIDE RECORDS SUMMARY | 2020-03-17 15:54 | XMS REPORT | Continuity of Care Document ---
:1965 Author Organization [facility] t Address [address] [place] [address] Care Team Providers Name Role Phone Sharpless [...] HURT 00:00: Jona TOES 00 Active 12/27/2016 [facility] [place] ABDOMINAL Diagnosis Active 2011-042012-02-17 Memoria PAIN 0-26 10:42:00 l 00:00: [place] ABDOMINAL 00 PAIN Active 02/07/2012 [facility], [place] EGD Diagnosis Active 2011-042012-02-06 Mem oria 0-24 10:10:00 l EGD 06:00: Jona 00 Active 02/05/2012 [facility] BLOOD Diagnosis Active 2011-12-11 Mem oria SUGAR 8-16 11:15:00 l PROBLEM BLOOD 15:00: [place] SUGAR 00 PROBLEM Active 11/28/2011 [place] LEFT LOWER Diagnosis Active 2011-12-11 Memoria ABDOMINAL 7-12 10:48:00 l PAIN LEFT 08:00: [place] LOWER 00 ABDOMINAL PAIN Active 10/24/2011 [place] ABDOMINAL Diagnosis Active 2011-12-11 Memoria PAIN HIGH 2-08 11:09:00 l BLOOD 22:00: Jona SUGAR ABDOMINAL 00 PAIN HIGH BLOOD SUGAR Active 05/22/2011 [place] BLEEDING/ Diagnosis Active 2011-12-11 Memoria RT SIDE 1-24 11:06:00 l PAIN 08:00: Jona BLEEDING/ 00 RT SIDE PAIN Active 05/07/2011 [place] RIGHTABDOM Diagnosis Active 2011-04-19 Memoria INAL PAIN 1-06 20:37:00 l . AND 00:00: [place] BLOOD IN RIGHTABDOM 00 URINE INAL PAIN . AND BLOOD IN URINE Active 04/19/2011 [place] RIGHT Diagnosis Active 2011-12-20 Mem oria ABDOMINAL 1-06 13:03:00 l PAIN, RIGHT 00:00: Jona BLOOD IN ABDOMINAL 00 URINE PAIN, BLOOD IN URINE Active 04/19/2011 [place] LOWER ABD Diagnosis Active 2010-042011-12-11 Memoria PAIN/ HIGH 2-12 11:02:00 l SUGAR LOWER 00:00: [place] ABD PAIN/ 00 HIGH SUGAR Active 03/25/2011 [place] CHEST PAIN Diagnosis Active 2010-042011-02-11 Memoria AND 0-30 01:56:00 l TIGHTNESS CHEST 18:00: Jorge Luis n PAIN AND 00 TIGHTNESS Active 02/10/2011 [place] CHEST Diagnosis Active 2010-042011-02-15 Mem oria PAIN, 0-30 21:58:00 l DIZZINESS, CHEST 18:00: Eugenia nn HYPERGLYCE PAIN, 00 EB, UTI DIZZINESS, HYPERGLYCE EB, UTI Active 02/10/2011 [place] CHEST PAIN Diagnosis Active 2010-042011-01-15 Memoria 0-03 16:36:00 l CHEST 15:00: Jona PAIN 00 Active 01/14/2011 [place] RIGHT KNEE Diagnosis Active 2010-12-22 Memoria 1ST 3 TOES 9-10 13:04:00 l NUMB RIGHT 11:00: [place] KNEE 1ST 3 00 TOES NUMB Active 12/22/2010 [place] FACIAL Diagnosis Active 2010-12-22 Mem oria NECK 6 13:04:00 l CELLULITIS FACIAL 00:00: Herm ava NECK 00 CELLULITIS Active 10/08/2010 [place] FACIAL AND Diagnosis Active 2010-12-22 Memoria NECK PAIN 10-07 13:04:00 l FACIAL 06:00: Jona AND NECK 00 PAIN Active 10/07/2010 [place] SUGAR Diagnosis Active 2010-12-22 Mem oria HIGH,VAGIN 07-21 13:04:00 l AL SUGAR 00:00: [place]ona BLEEDING HIGH,VAGIN 00 AL BLEEDING Active 07/21/2010 [place] ABD PAIN Diagnosis Active 2010-12-22 M emoria 01-05 13:04:00 l ABD PAIN 00:00: Jorge Luis n 00 Active 01/05/2010 [facility] EAR PAIN Diagnosis Active 2010-12-22 M emoria 10-09 13:04:00 l EAR PAIN 19:00: Jorge Luis n 00 Active 10/09/2009 [place] UPPER Diagnosis Active 2010-12-22 Mem oria ABDOMINAL 09-20 13:04:00 l PAIN UPPER 14:00: Jona ABDOMINAL 00 PAIN Active 09/20/2009 [place] ABD PAIN, Diagnosis Active 2010-12-22 Memoria HIGH SUGAR 5- 13:04:00 l ABD 00:00: [place] PAIN, HIGH 00 SUGAR Active 08/15/2009 [place] Abdominal Problem Active 2012-02-19 Me moria pain 09:23:16 l [place] Abdominal pain Active Problem 02/19/2012 [facility] [place], [place] Cellulitis Problem Active 2012-02-19 M emoria 09:23:16 l Jona Cellulitis Active Problem 02/19/2012 [facility] [place], [place] Chest pain Problem Active 2012-02-19 M emoria 09:23:16 l Chest [place] pain Active Problem 02/19/2012 [facility] [place], [place] Hyperglyce Problem Active 2012-02-19 M emoria eb 09:23:16 l [place] Hyperglyce eb Active Problem 02/19/2012 [facility] [place] UTI - Problem Active 2012-02-19 Memor ia Urinary 09:23:16 l tract UTI - Jona infection Urinary tract infection Active Problem 02/19/2012 [facility] [place] Diabetes Problem Active 2017-03-01 Mem oria mellitus 04:36:24 l (disorder) Diabetes He rmann mellitus (disorder) Active Problem 03/01/2017 [facility] Restless Problem Active 2017-03-01 Mem oria legs 04:36:24 l (disorder) Restless He rmann legs (disorder) Active Problem 03/01/2017 [facility] Abdominal Problem Active 2017-03-01 Me moria pain 04:36:24 l (finding) [place] Abdominal pain (finding) Active Problem 03/01/2017 [facility] Chest pain Problem Active 2017-03-01 M emoria (finding) 04:36:24 l Chest Jona pain (finding) Active Problem 03/01/2017 [facility] Hyperglyce Problem Active 2017-03-01 M emoria eb 04:36:24 l (disorder) Jorge Luis n Hyperglyce eb (disorder) Active Problem 03/01/2017 [facility] Urinary Problem Active 2017-03-01 Nirmal feliz tract 04:36:24 l infectious Urinary Her pugh disease tract (disorder) infectious disease (disorder) Active Problem 03/01/2017 [facility] CHEST PAIN Diagnosis Active 2010-12-22 Memoria NOS 13:04:00 l CHEST [place] PAIN NOS Active [place] CELLULITIS Diagnosis Active 2010-12-22 Memoria NOS 13:04:00 l [place] CELLULITIS NOS Active [place] Hyperglyce Problem 2016-2017-03-01 2017-03-01 Memoria eb, -14 04:36:24 04:36:24 l unspecifie 06:00: Jorge Luis n d Hyperglyce 00 eb, unspecifie d 02/25/2017 03/01/2017 [facility] Fever, Problem 2016-2017-03-01 2017-03-01 M emoria unspecifie -14 04:36:24 04:36:24 l d Fever, 06:00: [place] unspecifie 00 d 02/25/2017 03/01/2017 [facility] Radiculopa Problem 2016-2017-02-28 2017-02-28 Memoria thy, 1-14 05:26:25 05:26:25 l cervical 06:00: Jona region Radiculopa 00 thy, cervical region 02/25/2017 02/28/2017 [facility] Displaced Problem 2017-2016-12-30 2016-12-30 Memoria unspecifie 9-15 05:13:20 05:13:20 l d fracture 05:00: Jorge Luis n of right Displaced 00 lesser unspecifie toe(s), d fracture initial of right encounter lesser for closed toe(s), fracture initial encounter for closed fracture 12/30/2016 [facility] Allergies, Adverse Reactions, Alerts Allergy Allergy Status Severity Reaction(s) Onset Inactive Treating Comm ents Source Name Type Date Date Clinician Poli Goncalvesi [facility] - adverse [facility]: Medical reaction 00 Center s Ritalin Ritalin Active Emmanuelle Tenorio Social History Social Habit Start Date Stop Date Quantity Comments Source Sex Assigned At [facility] Tobacco use and 2017-10-06 2017-10-06 Never used [facility] kes - exposure 00:00:00 00:00:00 [facility] Alcohol intake 2017-10-06 2017-10-[address] [facility] - 00:00:00 00:00:00 non-drinker of Medical Ce nter alcohol (finding) Social History 2017-02-03 2017-02-03 [facility] hermila 15:24:44 15:24:44 Smoking Status Start Date Stop Date Source Never smoker [facility] Medications Ordered Filled Start Stop Current Ordering Indication Dosage Frequency Signature Comments Components Source Medication Medication Date Date Medication? Clinician (SIG) Name Name rOPINIRole 2018- Yes 1mg [id number] Take [address] [facility] (REQUIP) 1 3-26 [id number] by mouth 3 [facility] - MG tablet 12:00: 3D (three) Medic al 28 times Center daily. pregabalin Yes 50mg Q.[id number] Take [address] [facility] [address] (LYRICA) 50 3-26 [id number] by mouth 3 [facility] - MG capsule 12:00: 3D (three) Medi steven 28 times Center daily. GI cocktail 2016-04 No Notes: Nirmal feliz 1-15 G.I. l 05:06: Cocktail = [place] 00 antacid with simethicon e 22.5 mL [...] Notes: Memoria 1-15 (Same l 02:34: as:MORPhin [place] 00 e Sulfate) Lidocaine 2016-04 Yes Notes: Memori a Hydrochlori 1-15 Preservati l de 10 MG/ML 02:33: ve free. He rmann Injectable 00 (Same as: Solution Xylocaine MPF) Insulin 2016-04 No 60 Memoria regular 1-15 units) l 02:23: WASTE: F/P [place] 00 - Black; E - Municipal Trash Bin Stable for 28 days at room temperatur e Expires in days from ____Date Sodium 2016-04 No 2,000 mL, Memori a Chloride 1-15 1000 l 0.9% 02:22: ml/hr, Jona (Bolus) IV 00 Infuse Over: 2 hr, Route: IV, 2,000, Drug form: INJ, ONCE, Priority: STAT, Dosing Weight 49.545 kg, Start date: 02/25/17 20:22:00 CONSTRUCTION CONSULTANT, Stop date: 02/25/17 20:22:00 CONSTRUCTION CONSULTANT ibuprofen 2016-04 Yes 800 mg = 1 Me moria 800 mg oral 1-14 tab, PO, l tablet 07:20: Q8H, PRN [place] 00 Pain, Take with food, X 5 [...] Memoria 14 (Same as: l 05:48: Valium) [place] 00 Ketorolac 2016-04 No 4 days Memor ia -14 l 05:48: MEDICATION WASTE Product Size: 30 mg Product Wasted: ___ mg Ciprofloxac 2016-04 Yes 500 mg = 1 Memoria in 500 MG 0-15 tab, PO, l Oral Tablet 14:57: Q12H, for H ermann [Cipro] 00 UTI, X 3 day, # 6 tab, 0 Refill(s), Pharmacy: [facility] #[id number] Humalog 100 2016-04 Yes 4 unit, Mem oria units/mL 0-15 SUB-Q, l 14:48: TID-Before 00 Meals, hold insulin injection if your blood sugar is less than 140 mg/dL., # 10 mL, 0 Refill(s), Pharmacy: [facility] #[id number] pantoprazol 2016-04 Yes 40 mg = 1 M emoria e 40 MG 0-15 tab, PO, l Enteric 14:48: Daily, # Jorge Luis n Coated 00 30 tab, 0 Tablet Refill(s), [Protonix] Pharmacy: [facility] #[id number] Calcium 2016-04 Yes 500 mg = 1 Nirmal feliz Carbonate 0-15 tab, PO, l 500 MG 14:48: TID, # 6 [place] Chewable 00 tab, 0 Tablet Refill(s), Pharmacy: [facility] #[id number] Insulin 2016-04 Yes 15 unit, Memori a Glargine 0-15 SUB-Q, l 100 UNT/ML 14:48: Daily, # Her pugh Injectable 00 10 mL, 0 Solution Refill(s), [Lantus] Pharmacy: [facility] #[id number] Calcium 2016-04 No Notes: Memoria Gluconate 0-15 WASTE: F/P l 14:47: - Sink; E Jona 00 - Municipal Trash Bin Calcium 2016-04 No Notes: Memoria Carbonate 0-15 (Same As: l 14:00: Tums) Jona 00 Calcium Carbonate 500 mg = 200 [...] Memoria 0-15 (Same as: l 02:00: Requip) [place] 00 Lyrica 2016-04 No Notes: Memoria 0-15 (Same as: l 02:00: Lyrica) Jona 00 Calcium 2016-04 No Notes: Memoria Carbonate 0-14 (Same As: l 22:40: Tums) [place] 00 Calcium Carbonate 500 mg = 200 mg elemental calcium Dose = mg calcium carbonate ( mg elemental calcium) Protonix 2016-04 No Notes: Memoria 0-14 Tablet l 22:00: should not [place] 00 be chewed or crushed. (Same as: Protonix) Magnesium 2016-04 No Notes: Memori a Oxide 0-14 (Same as: l 22:00: Mag-Ox Jona 00 400) Magnesium oxide 198ho=89y g elemental magnesium Dose=____m g magnesium oxide [...] Lispro 0-14 units) l 09:50: WASTE: F/P [place] 00 - Black; E - Municipal Trash Bin Stable for 28 days at room temperatur e. Expires in days from ____Date Ceftriaxone 2016-04 No Notes: Nirmal feliz 0-14 (Same As: l 07:00: Rocephin). Jona 00 Use with 100 mL NS and infuse over 30 min MEDICATION WASTE Product Size: 1000 mg Product Wasted: ___ mg Hydralazine 2016-04 No Notes: Nirmal feliz 0-14 (Same as: l 06:35: Apresoline ) Push over 5 minutes Glucagon 2016-04 No 1 mg, Memoria 0-14 Route: IM, l 06:35: Drug form: [place] 00 PDR/INJ, PRN, Dosing Weight 51.449, kg, PRN Blood Glucose Results, Start date: 01/25/17 1:35:00 CDT, Duration: 30 day, Stop date: 02/24/17 0:34:00 CONSTRUCTION CONSULTANT Insulin 2016-04 No 60 Memoria Lispro 0-14 units) l 06:35: WASTE: F/P [place] 00 - Black; E - Municipal Trash Bin Stable for 28 days at room temperatur e. Expires in days from ____Date Dextrose 2016-04 No 25 gm, 50 Nirmal feliz 50% Syringe 0-14 mL, Route: l 06:35: IVP, Drug [place] Form: INJ, Dosing Weight 51.449, kg, PRN, PRN Blood Glucose Results, Start date: 01/25/17 1:35:00 CDT, Duration: 30 day, Stop date: 02/24/17 0:34:00 CONSTRUCTION CONSULTANT Acetaminoph 2016-04 No Notes: Do M emoria en 0-14 not exceed l 06:32: 4 gm/day. Jona (Same as: Tylenol) Acetaminoph 2016-04 No Notes: Nirmal feliz en 325 MG / 0-14 (Same as: l Hydrocodone 06:32: Avalon Eugenia nn Bitartrate 00 325/5) Do 5 MG Oral not exceed Tablet 4gm/day of acetaminop hen. Ondansetron 2016-04 No Notes: Nirmal feliz 0-14 (Same as: l 06:32: Zofran) MEDICATION WASTE Product Size: 4 mg Product Wasted: ___ mg sodium 2016-04 No 1,000 mL, Memori a chloride 0-14 Rate: 75 l 0.9% 1000 06:32: ml/hr, Jorge Luis n ml INJ 00 Infuse 1,000 mL over: 13.3 hr, Route: IV, Dosing Weight 51.449 kg, Total Volume: 1,000, Start date: 01/25/17 1:32:00 CDT, Stop date: 02/24/17 1:31:00 CONSTRUCTION CONSULTANT Saline 2016-04 No Notes: Memoria Flush 0.9% 0-14 (Same as: l 06:32: BD Posiflush) Ketorolac 2016-04 No 15 mg, Memori [...] Memoria 0-14 Route: l 03:07: IVP, Drug [place] 00 form: INJ, ONCE, Dosing Weight 52.273, kg, Priority: STAT, Start date: 01/24/17 22:07:00 CDT, Stop date: 01/24/17 22:07:00 CDT Morphine 2016-04 No Notes: Memoria 0-14 (Same l 02:12: as:MORPhin Jona 00 e Sulfate) Acetaminoph No 1 - 2 tab, Memoria en 300 MG / 9-15 PO, Q4H, l Codeine 05:54: PRN Pain, Eugenia nn Phosphate 00 X 2 day, # 30 MG Oral 30 tab, 0 Tablet Refill(s) [Tylenol with Codeine #3] Acetaminoph No Notes: Nirmal feliz en 325 MG / 9-15 (Same as: l Hydrocodone 04:47: Avalon Eugenia nn Bitartrate 00 325/5) Do 5 MG Oral not exceed Tablet 4gm/day of [Avalon acetaminop 5/325] hen. insulin Yes QD Inject [facility] glargine 2-01 subcutaneo [facility] - (LANTUS) 18:24: [facility] 100 unit/mL 46 nightly. Cent er injection Use as directed [...] Nirmal feliz 11-28 on Allowed l 03:29: [place] Insulin 0 No Vimi 7 unit, Memoria regular 11-28 [...] No Vimi 4 mg, Memor ia 11-28 Roche Route: l 02:51: IVP, ONCE, Dosing Weight 50, kg, Priority: STAT, Start date: 11/28/11 21:51:00, Stop date: 11/28/11 21:51:00 Sodium No Vimi 1,000 mL, Memori a Chloride 11-28 Roche Rate: l 0.9% 02:51: 1,000 [place] (Bolus) IV 00 ml/hr, 1,000 mL Infuse over: 1 hr, Route: IVPB, kg, Total Volume: 1,000, Bolus Dose, Priority: STAT, Start date: 11/28/11 21:51:00, Duration: 1 doses or times, Stop date: 11/28/11 22:50:00 Saline No Vimi 5 ml, Memoria Flush 0.9% 11-28 Roche Route: l 02:51: IVP, Drug Form: INJ, kg, PRN, PRN Line Flush, Start date: 11/28/11 21:51:00, Duration: 30 day, Stop date: 12/28/11 21:50:00 Avalon 5/325 2011-0 Yes Juan 1-2 tab, M emoria oral [...] mL, Route: l 03:06: Yeaton IVP, Drug Jroge Luis n 00 form: INJ, ONCE, Priority: [...] 2-09 Roche Route: l 07:52: IVP, ONCE, [place] Start date: 05/23/11 1:52:00, Stop date: 05/23/11 1:52:00 Insulin 2011-0 No Vimi 5 unit, Memoria regular 2-09 Roche 0.05 mL, l 07:10: Route: Jona IVP, Drug form: SOLN, ONCE, Priority: STAT, Start date: 05/23/11 1:10:00, Stop date: 05/23/11 1:10:00 Visipaque 2011-0 Yes Vimi 32,000 mg, Me moria 2-09 Roche 100 mL, l 05:47: Route: IV, [place] Drug form: INJ, ONCE, Start date: 05/22/11 23:47:00, Stop date: 05/22/11 23:47:00 Insulin 2011-0 No Vimi 5 unit, Memoria regular 2-09 Roche 0.05 mL, l 05:36: Route: [place] 00 SUB-Q, Drug form: SOLN, ONCE, Priority: STAT, Start date: 05/22/11 23:36:00, Stop date: 05/22/11 23:36:00 morphine 2011-0 No Vimi 2 mg, 0.4 Nirmal feliz Sulfate 05-23 Roche mL, Route: l 05:04: IVP, Drug form: INJ, ONCE, Priority: STAT, Start date: 05/22/11 23:04:00, Stop date: 05/22/11 23:04:00 ondansetron 2011- No Vimi 4 mg, 2 Mem oria 05-23 Roche mL, Route: l 05:04: IVP, Drug [...] tab, PO, l tablet 02:07: Q12H, 28 Jona 41 tab, Substituti on Allowed, TAB Pyridium 2011-0 No Sonal 200 mg, 2 Me moria 1-25 Raulito tab, l 02:03: Route: PO, Jona 00 Drug form: TAB, ONCE, Priority: STAT, Start date: 05/07/11 20:03:00, Stop date: 05/07/11 20:03:00 Cipro 2011-0 No Sonal 500 mg, 2 Memor ia 1-25 Raulito tab, l 02:03: Route: PO, [place] 00 Drug form: TAB, ONCE, Priority: STAT, [...] ing Nausea and Vomiting, Substituti on Allowed Avalon Yes Juan 1 tab, PO, Memor ia 10/325 oral 04-20 Keith Q4-6H, l tablet 06:55: Yeaton PRN, 24 Jorge Luis n 26 tab, as needed for pain, Substituti on Allowed, Maintenanc e hydromorpho No Juan 1 mg, 0.5 Memoria ne -07 Keith mL, Route: l 05:38: Yeaton IVP, Drug Jorge Luis n 00 form: INJ, ONCE, Priority: STAT, Start date: 04/19/11 23:38:00, Stop date: 04/19/11 23:38:00 Insulin No Juan 10 unit, Memor ia regular 07 Keith 0.1 mL, l 05:31: Yeaton Route: Jona IVP, Drug form: SOLN, ONCE, Priority: STAT, Start date: 04/19/11 23:31:00, Stop date: 04/19/11 23:31:00 Sodium 2011-0 No Juan 1,000 mL, Memor ia Chloride 1-07 Keith Rate: l 0.9% 03:30: Yeaton 1,000 [place] (Bolus) IV 00 ml/hr, 1,000 mL Infuse over: 1 hr, Route: IV, Total Volume: 1,000, Bolus Dose, Priority: STAT, Start date: 04/19/11 21:30:00, Duration: 1 doses or times, Stop date: 04/19/11 22:29:00 Saline 2011-0 No Juan 5 ml, Memoria Flush 0.9% 04-20 Keith Route: l 03:30: Yeaton IVP, Drug Jorge Luis n 00 Form: INJ, PRN, PRN Line Flush, Start date: 04/19/11 21:30:00, Duration: 30 day, Stop date: 05/19/11 21:29:00 ondansetron 0 No Juan 4 mg, Nirmal feliz 07 Keith Route: l 03:30: Yeaton IVP, ONCE, Eugenia nn 00 Priority: STAT, Start date: 04/19/11 21:30:00, Stop date: 04/19/11 21:30:00 ketorolac 2011-0 No Juan 30 mg, Memor ia 04-20 Keith Route: l 03:30: Yeaton IVP, ONCE, Eugenia nn 00 Priority: STAT, Start date: 04/19/11 21:30:00, Stop date: 04/19/11 21:30:00 hydromorpho 0 No Juan 1 mg, Nirmal feliz ne [...] gm, PO, M emoria oral powder 2-13 Samson Phelps Daily, 255 l for 05:57: gm, [place] reconstitut 18 Substituti ion on Allowed, PDR/REC Phenergan 2010-04 Yes Mila 25 mg, 1 M emoria 25 mg oral 2-13 Samson Phelps tab, PO, l tablet 05:57: Q6H, PRN, Jorge Luis n 09 15 tab, Nausea, Substituti on Allowed Vicodin 2010-04 Yes Mila 1 tab, PO, M emoria 5/500 oral 2-13 Zay Phelps Q4-6H, l tablet 05:57: PRN, 24 [place] 05 tab, for Pain, Substituti on Allowed, [...] Mila 10 unit, Mem oria regular 2-13 Samson Phelps 0.1 mL, l 03:16: Route: [place] 00 IVP, Drug form: SOLN, ONCE, Priority: STAT, Start date: 03/25/11 21:16:00, Stop date: 03/25/11 21:16:00 Omnipaque 2010-04 Yes Mila 30,000 mg, Memoria 300 2-13 Samson Phelps 100 mL, l 03:15: Route: IV, Jona 00 Drug form: SOLN, ONCE, Start date: 03/25/11 21:15:00, Stop date: 03/25/11 21:15:00 Saline 2010-04 No Mila 5 ml, Memoria Flush 0.9% 2-13 Samson Phelps Route: l 02:19: IVP, Drug Form: INJ, PRN, PRN Line Flush, Start date: 03/25/11 20:19:00, Duration: 30 day, Stop date: 04/24/11 20:18:00 ondansetron 2010-04 No Mila 4 mg, 2 Memoria 2-13 Samson Phelps mL, Route: l 02:19: IVP, Drug form: INJ, ONCE, Priority: STAT, Start date: 03/25/11 20:19:00, Stop date: 03/25/11 20:19:00 morphine 2010-04 No Mila 4 mg, 0.8 M emoria Sulfate 2-13 Zay Phelps mL, Route: l 02:19: IVP, Drug [place] 00 form: INJ, ONCE, Priority: STAT, Start date: 03/25/11 20:19:00, Stop date: 03/25/11 20:19:00 nitroglycer 2010-04 No 0.4 mg, 1 M emoria in 0.4 mg 0-31 tab, SL, l sublingual 17:47: Q5Min, Eugenia nn tablet 03 PRN, as needed for chest pain, Substituti on Allowed aspirin 81 2010-04 Yes 1 tab, PO, M emoria mg tablet, 0-31 Daily, l chewable 17:29: tab, [place] 44 Substituti on Allowed, CHEWTAB Cipro 2010-04 No Dk 250 mg, 1 Memori a 0-31 Ari tab, l 16:00: Bridges Route: PO, Herm ava 00 Drug form: TAB, [id number], Start date: 02/11/11 11:00:00, Duration: 30 day, Stop date: 03/12/11 23:00:00 magnesium 2010-04 No Dakota 400 mg, 1 M emoria oxide 0-31 Minhvu Victoriano tab, l 14:00: Radford Route: PO, [place] 00 Drug form: TAB, Daily, Start date: 02/11/11 9:00:00, Duration: 30 day, Stop date: 03/12/11 9:00:00 Lantus 2010-04 No Dk 70 unit, Memori a 0-31 Ari Route: l 14:00: Jonathan SUB-Q, [place] Drug form: SOLN, Daily, Start date: 02/11/11 9:00:00, Duration: 30 day, Stop date: 03/12/11 9:00:00 Levemir 2010-04 No Dk 70 unit, Memor ia FlexPen 0-31 Ari 0.7 mL, l 14:00: Jonathan Route: [place] 00 SUB-Q, Drug form: INJ, Daily, Start [...] PO, Herm ava 00 Drug form: TAB, [id number], Start date: 02/11/11 3:00:00, Duration: 30 day, [...] No Dk 5 ml, Memoria Flush 0.9% 0 Ari Route: l 07:05: Jonathan IVP, Drug Eugenia nn 00 Form: INJ, PRN, PRN Line Flush, Start date: 02/11/11 2:05:00, Duration: 30 day, Stop date: 03/13/11 1:04:00 nitroglycer 2010-04 No Dk 0.4 mg, 1 Memoria in SL Tab 0- Ari tab, l 07:05: Jonathan Route: SL, Herm ava 00 Drug form: TAB, Q5Min, PRN Chest Pain, Start date: 02/11/11 2:05:00, Duration: 3 doses or times, Stop date: Limited # of times morphine 2010-04 No Dk 2 mg, 0.4 Mem oria Sulfate Ari mL, Route: l 07:05: Jonathan IVP, Drug Eugenia nn 00 form: INJ, Q15Min, PRN Chest Pain, Start date: 02/11/11 2:05:00, Duration: 2 doses or times, Stop date: Limited # of times acetaminoph 2010-04 No Dk 650 mg, 2 Memoria en 0- Ari tab, l 07:05: Bridges Route: PO, Herm ava 00 Drug form: TAB, Q4H, PRN Headache, Start date: 02/11/11 2:05:00, Duration: 30 day, Stop date: 03/13/11 2:04:00 diphenhydrA 2010-04 No Dk 25 mg, 1 M emoria MINE 0 Ari tab, l 07:05: Jonathan Route: PO, Herm ava 00 Drug form: TAB, Bedtime, PRN Insomnia, Start date: 02/11/11 2:05:00, Duration: 30 day, Stop date: 03/13/11 2:04:00 acetaminoph 2010-04 No Dk 1 tab, Mem oria en-hydrocod 0 Ari Route: PO, l one 325 07:05: [...] Shauna mL, Route: l 05:37: IVP, Drug [place] 00 form: INJ, ONCE, Priority: STAT, Start date: 02/11/11 0:37:00, Stop date: 02/11/11 0:37:00 Visipaque 2010-04 No Penelope S 48,000 mg, Memoria 0-31 Shauna 150 mL, l 04:55: Route: IV, Jona Drug form: INJ, ONCE, Start date: 02/10/11 23:55:00, Stop date: 02/10/11 23:55:00 Zofran 2010-04 No Penelope S 4 mg, 2 Memori a 0-31 Shauna mL, Route: l 04:28: IVP, Drug [place] 00 form: INJ, ONCE, Start date: 02/10/11 23:28:00, Stop date: 02/10/11 23:28:00 Cipro 2010-04 No Penelope S 400 mg, Memoria 0-31 Shauna Route: l 04:08: IVPB, [place] 00 ONCE, Priority: STAT, Start date: 02/10/11 23:08:00, Stop date: 02/10/11 23:08:00 Insulin 2010-04 No Penelope S 10 unit, Nirmal feliz regular 0-31 Shauna Route: l 03:56: SUB-Q, Jona 00 ONCE, Priority: STAT, Start date: 02/10/11 22:56:00, Stop date: 02/10/11 22:56:00 Sodium 2010-04 No Penelope S 1,000 mL, Nirmal feliz Chloride 0-31 Shauna Rate: l 0.9% 03:55: 1,000 Jona (Bolus) IV 00 ml/hr, 1000 mL Infuse over: 1 hr, Route: IV, Total Volume: 1,000, Bolus Dose, Priority: STAT, Start date: 02/10/11 22:55:00, Duration: 1 doses or times, Stop date: 02/10/11 23:54:00 BD 2010-04 No Penelope S 15 mL, Memoria Posiflush 0-31 Shauna Route: l SF 02:55: IVP, Drug [place] 00 Form: INJ, PRN, PRN Line Flush, Start date: 02/10/11 21:55:00, Duration: 30 day, Stop date: 03/12/11 20:54:00 aspirin 325 2010-04 No Penelope S 325 mg, M emoria mg tablet 0-31 Shauna Route: PO, l 02:47: Drug form: [place] 00 TAB, ONCE, Priority: STAT, Start date: 02/10/11 21:47:00, Stop date: 02/10/11 21:47:00 metoprolol 2010-04 No Penelope S 50 mg, Mem oria tartrate 0-31 Shauna Route: PO, l 02:47: Drug form: [place] 00 TAB, ONCE, (Hold if SBP < = 90 mmHg or if < = 100mmHg with symptomati c dizziness, or if HR < = 55), Start date: 02/10/11 21:47:00, Stop date: 02/10/11 21:47:00 nitroglycer 2010-04 No Penelope S 0.5 inch, Memoria in 2% 0-31 Shauna Route: l ointment 02:47: TOP, Drug Herm Form: OINT, ONCE, STAT, Start date: 02/10/11 21:47:00, Stop date: 02/10/11 21:47:00 nitroglycer 2010-04 No Penelope S 0.4 mg, 1 Memoria in 0-31 Shauna tab, l 02:47: Route: SL, Dermott Drug form: TAB, Q5Min, PRN Chest Pain, (Hold if SBP < = 90 mmHg or if < = 100mmHg with symptomati c dizziness) , Start date: 02/10/11 21:47:00, Duration: 3 doses or times, Stop date: Limited # of times morphine 2010-04 No Penelope S 2 mg, Memori a Sulfate 0-31 Shauna Route: l 02:47: IVP, ONCE, [place]ermott 00 Priority: STAT, Start date: 02/10/11 21:47:00, [...] Victoriano tab, l 02:00: [place] Route: PO, Jona Drug form: TAB, Bedtime, Start date: 01/15/11 [...] Q12H, l tablet 15:37: Edwards 30 tab, Dermott 31 Substituti on Allowed, TAB aspirin 325 [...] Q4H, PRN, l 14:18: Medina 30 tab, Dermott 21 Headache, Substituti on Allowed, Maintenanc e, [...] Victoriano Route: l 02:00: [place] IVP, Drug [place]ermott 00 Form: INJ, Q12H, Start date: 01/14/11 21:00:00, Duration: 30 day, Stop date: 02/13/11 9:00:00 Levemir 2010-04 Beth Duncan 70 unit, Nirmal feliz FlexPen 0-04 Minhvu Victoriano 0.7 mL, l 02:00: [place] Route: [place]ott 00 SUB-Q, Drug form: INJ, Bedtime, Start date: 01/14/11 21:00:00, Duration: 30 day, Stop date: 02/12/11 21:00:00 Lantus 2010-04 Beth Duncan 70 unit, Memor ia 0-04 Minhvu Victoriano Route: l 02:00: [place] SUB-Q, [place] 00 Bedtime, Start date: 01/14/11 21:00:00, Duration: 30 day, Stop date: 02/12/11 21:00:00 glucagon 2010-04 Beth Duncan 1 mg, Memori a 0-04 Minhvu Victoriano Route: IM, l 00:22: [place] Drug form: [place] 00 PDR/INJ, PRN, PRN Blood Glucose Results, [...] ml, Route: l 00:22: [place] IM, Drug Form: INJ, PRN, PRN Blood Glucose Results, Start date: 01/14/11 19:22:00, Duration: 30 day, Stop date: 02/13/11 19:21:00 Saline 2010-04 No Dakota 5 ml, Memoria Flush 0.9% 0-04 Minhvu Victoriano Route: l 00:21: [place] IVP, Drug Form: INJ, PRN, PRN Line Flush, Start date: 01/14/11 19:21:00, Duration: 30 day, Stop date: 02/13/11 19:20:00 nitroglycer 2010-04 No Dakota 0.4 mg, 1 Memoria in SL Tab 0-04 Minhvu Victoriano tab, l 00:21: [place] Route: SL, [place] 00 Drug form: TAB, Q5Min, PRN Chest [...] Victoriano cap, l 00:21: [place] Route: PO, [place] 00 Drug form: CAP, Bedtime, PRN Insomnia, Start date: 01/14/11 19:21:00, Duration: 30 day, Stop date: 02/13/11 19:20:00 ondansetron 2010-04 No [place] 4 mg, 1 M emoria 0-04 Minarnaldo Pastrana tab, l 00:21: [place] Route: PO, Drug form: TAB, Q8H, PRN Nausea & [...] Davis Route: PO, l 22:08: Drug Form: [place] 00 SUSP, ONCE, Routine, Start date: 01/14/11 [...] 0-03 Davis Route: l 20:20: IVP, Drug [place] 00 Form: INJ, PRN, PRN Line Flush, Start date: 01/14/11 15:20:00, Duration: 30 day, Stop date: 02/13/11 15:19:00 ibuprofen Yes Sonal 1 tab, PO, Memoria 400 mg oral 9-10 Raulito Q4H, PRN, l tablet 18:32: 20 tab, [place] 59 Pain, Substituti on Allowed acetaminoph Yes Sonal 1 tab, PO, Memoria en-hydrocod 9-10 Raulito Q4-6H, l one 500 18:32: PRN, 20 [place] mg-5 mg 50 tab, Pain, oral tablet Substituti on Allowed, Maintenanc e acetaminoph No Sonal 1 tab, Me moria en-hydrocod 9-10 Raulito Route: PO, l one 500 17:39: Drug Form: Herm ava mg-5 mg 00 TAB, ONCE, oral tablet STAT, Start date: 12/22/10 12:39:00, Stop date: 12/22/10 12:39:00 Vital Signs Vital Name Observation Time Observation Value Comments Source Systolic (mm Hg) 2017-02-26 06:50:00 Nirmal rial Jona Diastolic (mm Hg) 2017-02-26 06:50:00 Mem orial [place] Respitory Rate 2017-02-26 06:50:00 [facility]ori al [place] Temperature Oral (F) 2017-02-26 06:50:00 97.6 F [facility] Heart Rate 2017-02-26 06:50:00 [facility] [place] Respitory Rate 2017-02-26 04:30:00 [facility] al [place] Systolic (mm Hg) 2017-02-26 04:30:00 Nirmal rial [place] Diastolic (mm Hg) 2017-02-26 04:30:00 Mem orial [place] Heart Rate 2017-02-26 04:30:00 [facility] Temperature Oral (F) 2017-02-26 00:55:00 98.8 F [facility] [place] Weight 2017-02-26 00:55:00 [facility] BMI Calculated 2017-02-26 00:55:00 [facility] al [place] Height 2017-02-26 00:55:00 162.56 cm [facility] Systolic (mm Hg) 2017-02-26 00:55:00 Nirmal rial [place] Diastolic (mm Hg) 2017-02-26 00:55:00 Mem o[facility] Heart Rate 2017-02-26 00:55:00 [facility] [place] Respitory Rate 2017-02-26 00:55:00 [facility] al Jona Respitory Rate 2017-02-25 07:35:00 [facility] Systolic (mm Hg) 2017-02-25 07:35:00 Nirmal rial [place] Diastolic (mm Hg) 2017-02-25 07:35:00 Mem orial [place] Temperature Oral (F) 2017-02-25 07:35:00 98.2 F [facility] Heart Rate 2017-02-25 07:35:00 [facility] BMI Calculated 2017-02-25 05:05:00 [facility] [place] Weight 2017-02-25 05:05:00 [facility] [place] Height 2017-02-25 05:05:00 162.56 cm [facility] Heart Rate 2017-02-25 05:05:00 [facility] Respitory Rate 2017-02-25 05:05:00 [facility] Temperature Oral (F) 2017-02-25 05:05:00 97.8 F [facility] Systolic (mm Hg) 2017-02-25 05:05:00 Nirmal rial Jona Diastolic (mm Hg) 2017-02-25 05:05:00 [facility] o[facility] [place] Weight 2017-02-25 04:55:00 [facility] Height 2017-02-25 04:55:00 167.64 cm [facility] [place] Temperature Oral (F) 2017-02-25 04:55:00 97.8 F [facility] BMI Calculated 2017-02-25 04:55:00 [facility] [place] Systolic (mm Hg) 2017-02-25 04:55:00 Nirmal rial Jona Diastolic (mm Hg) 2017-02-25 04:55:00 Mem o[facility] [place] Respitory Rate 2017-02-25 04:55:00 [facility] Heart Rate 2017-02-25 04:55:00 [facility] [place] Temperature Oral (F) 2017-01-26 16:47:00 98.5 F [facility] Heart Rate 2017-01-26 16:47:00 [facility] Respitory Rate 2017-01-26 16:47:00 [facility] [place] Systolic (mm Hg) 2017-01-26 16:47:00 Nirmal rial [place] Diastolic (mm Hg) 2017-01-26 16:47:00 Mem o[facility]ona Heart Rate 2017-01-26 12:26:00 [facility] [place] Respitory Rate 2017-01-26 12:26:00 [facility] Temperature Oral (F) 2017-01-26 12:26:00 98.4 F [facility] [place] Systolic (mm Hg) 2017-01-26 12:26:00 Nirmal rial Jona Diastolic (mm Hg) 2017-01-26 12:26:00 [facility] o[facility] Temperature Oral (F) 2017-01-26 09:50:00 98.1 F [facility] [place] Heart Rate 2017-01-26 09:50:00 [facility] Systolic (mm Hg) 2017-01-26 09:50:00 Nirmal rial Jona Diastolic (mm Hg) 2017-01-26 09:50:00 [facility] o[facility] [place] Respitory Rate 2017-01-26 09:50:00 [facility]ona Height 2017-01-25 05:58:00 157.48 cm [facility] Jnoa Weight 2017-01-25 05:58:00 [facility] BMI Calculated 2017-01-25 05:58:00 [facility] Weight 2017-01-25 02:01:00 [facility] [place] BMI Calculated 2017-01-25 02:01:00 [facility] [place] Height 2017-01-25 02:01:00 162.56 cm [facility] [place] Systolic (mm Hg) 2016-12-27 06:03:00 Nirmal rial Jona Diastolic (mm Hg) 2016-12-27 06:03:00 Mem o[facility] [place] Respitory Rate 2016-12-27 06:03:00 [facility] [place] Heart Rate 2016-12-27 06:03:00 [facility] Temperature Oral (F) 2016-12-27 06:03:00 98.3 F [facility] Temperature Oral (F) 2016-12-27 04:22:00 98.4 F [facility] Respitory Rate 2016-12-27 04:22:00 [facility] Systolic (mm Hg) 2016-12-27 04:22:00 Nirmal rial [place] Diastolic (mm Hg) 2016-12-27 04:22:00 [facility] o[facility] Jona BMI Calculated 2016-12-27 04:22:00 [facility] [place] Weight 2016-12-27 04:22:00 [facility] [place] Heart Rate 2016-12-27 04:22:00 [facility] Height 2016-12-27 04:22:00 162.56 cm [facility] Height 2012-02-06 15:19:00 162.56 cm [facility] Joan Weight 2012-02-06 15:19:00 [facility] Height 2011-11-29 02:35:00 162.56 cm [facility] Weight 2011-11-29 02:35:00 [facility] Height 2011-10-25 02:45:00 162.56 cm [facility] Weight 2011-10-25 02:45:00 [facility] [place] Height 2011-05-23 04:48:00 162.56 cm [facility] [place] Weight 2011-05-23 04:48:00 [facility] Temperature Oral (F) 2011-05-08 02:38:00 98.5 F [facility] [place] Diastolic (mm Hg) 2011-05-08 02:38:00 Mem o[facility] [place] Systolic (mm Hg) 2011-05-08 02:38:00 Nirmal rial [place] Heart Rate 2011-05-08 02:38:00 [facility] [place] Respitory Rate 2011-05-08 02:38:00 [facility] [place] Weight 2011-05-08 00:09:00 [facility] [place] Height 2011-05-08 00:09:00 162.56 cm [facility] [place] Temperature Oral (F) 2011-05-08 00:09:00 98.6 F [facility] Diastolic (mm Hg) 2011-05-08 00:09:00 Mem o[facility] Systolic (mm Hg) 2011-05-08 00:09:00 Nirmal rial Jona Heart Rate 2011-05-08 00:09:00 [facility] [place] Respitory Rate 2011-05-08 00:09:00 [facility] [place] Respitory Rate 2011-04-20 07:05:00 [facility] Heart Rate 2011-04-20 07:05:00 [facility] Diastolic (mm Hg) 2011-04-20 07:05:00 Mem orial [place] Systolic (mm Hg) 2011-04-20 07:05:00 Nirmal rial [place] Diastolic (mm Hg) 2011-04-20 06:01:00 [facility] o[facility] [place] Heart Rate 2011-04-20 06:01:00 [facility] [place] Systolic (mm Hg) 2011-04-20 06:01:00 Nirmal rial Jona Respitory Rate 2011-04-20 06:01:00 [facility] [place] Weight 2011-04-20 02:25:00 [facility] Systolic (mm Hg) 2011-04-20 02:25:00 Nirmal rial Jona Temperature Oral (F) 2011-04-20 02:25:00 98.0 F [facility] [place] Respitory Rate 2011-04-20 02:25:00 [facility] Heart Rate 2011-04-20 02:25:00 [facility] [place] Diastolic (mm Hg) 2011-04-20 02:25:00 [facility] o[facility] [place] Temperature Oral (F) 2011-03-26 06:05:00 98.0 F [facility] Respitory Rate 2011-03-26 06:05:00 [facility] Heart Rate 2011-03-26 06:05:00 [facility] [place] Systolic (mm Hg) 2011-03-26 06:05:00 Nirmal rial [place] Diastolic (mm Hg) 2011-03-26 06:05:00 [facility] o[facility] [place] Height 2011-03-26 01:58:00 160.02 cm [facility] Weight 2011-03-26 01:58:00 [facility] Temperature Oral (F) 2011-03-26 01:58:00 99.0 F [facility] Diastolic (mm Hg) 2011-03-26 01:58:00 [facility] o[facility] [place] Systolic (mm Hg) 2011-03-26 01:58:00 Nirmal rial [place] Respitory Rate 2011-03-26 01:58:00 [facility] [place] Heart Rate 2011-03-26 01:58:00 [facility] [place] Diastolic (mm Hg) 2011-02-11 15:37:00 [facility] o[facility] [place] Respitory Rate 2011-02-11 15:37:00 [facility] al [place] Systolic (mm Hg) 2011-02-11 15:37:00 Nirmal rial Jona Heart Rate 2011-02-11 15:37:00 [facility] Temperature Oral (F) 2011-02-11 15:37:00 98.1 F [facility] Diastolic (mm Hg) 2011-02-11 11:53:00 [facility] o[facility] [place] Systolic (mm Hg) 2011-02-11 11:53:00 Nirmal rial [place] Temperature Oral (F) 2011-02-11 11:53:00 97.5 F [facility] Heart Rate 2011-02-11 11:53:00 [facility] [place] Respitory Rate 2011-02-11 11:53:00 [facility] al [place] Height 2011-02-11 07:38:00 162.56 cm [facility] [place] Weight 2011-02-11 07:38:00 [facility] [place] Respitory Rate 2011-02-11 07:38:00 [facility] al [place] Temperature Oral (F) 2011-02-11 07:38:00 98.0 F [facility] [place] Heart Rate 2011-02-11 07:38:00 [facility] [place] Systolic (mm Hg) 2011-02-11 07:38:00 Nirmal rial Jona Diastolic (mm Hg) 2011-02-11 07:38:00 [facility] o[facility] [place] Weight 2011-02-11 02:32:00 [facility] [place] Height 2011-02-11 02:32:00 162.56 cm [facility] Diastolic (mm Hg) 2011-01-15 16:44:00 [facility] o[facility] [place] Systolic (mm Hg) 2011-01-15 16:44:00 Nirmal rial Jona Temperature Oral (F) 2011-01-15 16:44:00 97.0 F [facility] Heart Rate 2011-01-15 16:44:00 [facility] [place] Respitory Rate 2011-01-15 16:44:00 [facility]ori al [place] Temperature Oral (F) 2011-01-15 12:18:00 97.2 F [facility] Respitory Rate 2011-01-15 12:18:00 [facility] [place] Heart Rate 2011-01-15 12:18:00 [facility] [place] Diastolic (mm Hg) 2011-01-15 12:18:00 Mem o[facility] [place] Systolic (mm Hg) 2011-01-15 12:18:00 Nirmal rial Jona Respitory Rate 2011-01-15 09:30:00 [facility] al [place] Systolic (mm Hg) 2011-01-15 09:30:00 Nirmal rial Jona Heart Rate 2011-01-15 09:30:00 [facility] [place] Temperature Oral (F) 2011-01-15 09:30:00 97.9 F [facility] Diastolic (mm Hg) 2011-01-15 09:30:00 Mem orial [place] Height 2011-01-15 01:35:00 162.56 cm [facility] Weight 2011-01-15 01:35:00 [facility] [place] Height 2011-01-14 20:07:00 162.56 cm [facility] [place] Weight 2011-01-14 20:07:00 [facility] [place] Systolic (mm Hg) 2010-12-22 18:51:00 Nirmal rial [place] Diastolic (mm Hg) 2010-12-22 18:51:00 Mem orial [place] Peripheral Pulse Rate 2010-12-22 18:51:00 [facility] Respitory Rate 2010-12-22 18:51:00 [facility] al [place] Height 2010-12-22 16:57:00 162.56 cm [facility] [place] Weight 2010-12-22 16:57:00 [facility] Temperature Oral (F) 2010-12-22 16:57:00 98.2 F [facility] Respitory Rate 2010-12-22 16:57:00 Memori al [facility] Peripheral Pulse Rate 2010-12-22 16:57:00 [facility] Diastolic (mm Hg) 2010-12-22 16:57:00 Mem o[facility] J[place] Systolic (mm Hg) 2010-12-22 16:57:00 Nirmal rial Jona Procedures Procedure Date / Time Performed Performing Clinician [facility] e Appendectomy [facility] Jona Cholecystectomy [facility] [place] Partial hysterectomy [facility] Plan of Care Planned Activity Planned Date Details Comments Source Future Scheduled 2019-12-[address] [facility] - Test 00:00:00 (#1) [code = [facility] INFLUENZA VACCINE (#1)] Future Scheduled [address] [facility] Test 00:00:00 (procedure) [code = [facility] 32773538] Future Scheduled [address] [facility] 00:00:00 malignant neoplasm [facility] enter of cervix (procedure) [code = 223132353] Future Scheduled [address] [facility] - Test 00:00:00 malignant neoplasm Medical [facility] enter of breast (procedure) [code = 317833323] Future Scheduled [address] [facility] - Test 00:00:00 malignant neoplasm Medical C enter of colon (procedure) [code = 855262789] Encounters Start End Encounter Admission Attending Care Care Encounter Source Date/Time Date/Time Type Type Clinicians Facility Department ID 2018-11-26 2018-11-26 [id number] 11:32:46 15:11:00 Edgard Medley [id number] [place] [id number] [place] [id number] 2018-11-26 2018-11-26 Orders Doctor RASHID [id number] 00:00:00 00:00:00 Only Unassigned, [place] [id number] [place] [facility] [id number] 2017-02-25 2017-02-26 Outpatient Quezada, 2.16.840. 2.16.840.1. 4 [id number] 18:38:00 00:55:00 Rudolph [id number] 03 Mateo 3.615.120 5.120 2017-02-24 2017-02-25 Outpatient Quezada, 2.16.840. 2.16.840.1. 4 [id number] 22:49:00 01:35:00 Rudolph [id number] 02 Mateo 3.615.120 5.120 2017-01-24 2017-01-26 Outpatient Kayla, 2.16.840. 2.16.840.1 . [id number] 20:53:00 14:35:00 Greg Giron [id number] 5.120 2016-12-26 2016-12-27 Outpatient Davis, 2.16.840. 2.16.840.1. 4 [id number] 23:03:00 01:05:00 Moise Rojas [id number] 00 3.615.120 5.120 Results Test Description Test Time Test Comments Results Result Comments Source POCT-GLUCOSE METER 2017-10-07 11:53:00 Test Item Value Reference Range Interpretation Comme nts POC-GLUCOSE METER (BEAKER) (test 277 mg/dL 70-110 H TESTED AT [address] POINT code = 1538) [address] [facility] [address] POCT-GLUCOSE [id number] 11:53:00 Test Item Value Reference Range Interpretation Comments POC-GLUCOSE METER 411 mg/dL 70-110 HH TESTED AT [address] [facility] (test code [address] [facility] [place] = 1538) [address] RAD, SPINE, CERVICAL, 2 OR 3 [id number] 23:46:00Reason for exam:->neck painFINAL REPORT RAD, SPINE, CERVICAL, 1 view. CLINICAL INDICATION: neck pain COMPARISON: None FINDINGS/IMPRESSION: A single lateral view of the cervical spine was obtained.The study is limited due to obliquity. Vertebral body height and and alignment is maintained. The intervertebral disc spaces are not well evaluated. There is no prevertebral soft tissue swelling. Signed: Clarence Grayson MDReport Verified Date/Time: 10/06/2017 23:46:30 Reading Location: [address] Transitional Reading Room CT, SPINE, CERVICAL, [...] evaluation as clinically warranted. Signed: Clarence Grayson MDReport Verified Date/Time: 10/06/2017 23:44:40 Reading Location: [address] Transitional Reading Room CT, BRAIN, WITHOUT [...] Verified Date/Time: 10/06/2017 23:24:44 Reading Location: [address] Reading Room TROPONIN I 2017-10-06 22:56:00 [...] acute neurological disease, and persistent tachyarrhythmia.COMPREHENSIVE METABOLIC [id number] 22:50:00 Test Item Value Reference Range Interpretation [...] S NOT APPLICABLE FOR DIALYSIS PATIEN TS. [id number] 22:42:00 Test Item Value Reference Range Interpretation Comments AMYLASE (BEAKER) (test code = 349) 58 U/L 30-110 CBC W/PLT COUNT & AUTO [id number] 22:22:00 Test Item Value Reference Range Interpretation [...] 0.00-0.20 (test code = 417) URINALYSIS W/ [id number] 22:09:00 Test Item Value Reference Range Interpretation [...] code = 1663) SOURCE(BEAKER) (test code = 0945) POCT-GLUCOSE [id number] 07:19:00 Test Item Value Reference Range Interpretation Comments POC-GLUCOSE METER 241 mg/dL 70-110 H TESTED AT [address] (ANTHONY) (test code POINT PK [facility] = 2587) [address] CT, [id number] 19:16:00FINAL REPORT CT OF THE ABDOMEN AND [...] MDReport Verified Date/Time: 09/22/2017 19:16:29 Reading Location: [facility] C013W Consult Reading Room BASIC METABOLIC [id number] 17:37:00 Test Item Value Reference Range Interpretation [...] NOT APPLICABLE FOR DIALYSIS PATIEN TS. TROPONIN [id number] 17:07:00 Test Item Value Reference Range Interpretation [...] (test code = 749) 26 U/L 6-51 [id number] 16:51:00 Test Item Value Reference Range Interpretation Comments AMYLASE (BEAKER) (test 32 U/L 30-110 Speci men markedly code = 349) hemolyzed URINALYSIS W/ [id number] 16:21:00 Test Item Value Reference Range Interpretation [...] = 2795) CBC W/PLT COUNT & AUTO [id number] 16:15:00 Test Item Value Reference Range Interpretation [...] L 0.00-0.20 (test code = 417) POCT-GLUCOSE [id number] 15:36:00 Test Item Value Reference Range Interpretation Comments POC-GLUCOSE METER 284 mg/dL 70-110 H TESTED AT [address] (BEAKER) (test code POINT [address] [facility] [place] = 1538) [address] CT, [id number] 15:32:00Reason for exam:->LLQ ABD PAINIs the patient [...] prior examination dated 07/09/2016. Signed: Gama Hammonds [facility] Verified Date/Time: 07/07/2017 15:32:20 Reading Location: [facility] B1 C013Y CT Body Reading Room LIPASE 2017-07-07 14:41:00 Test Item Value Reference Range Interpretation Comments LIPASE (BEAKER) (test code = 749) 32 U/L 6-51 COMPREHENSIVE METABOLIC [id number] 14:40:00 Test Item Value Reference Range Interpretation [...] NOT APPLICABLE FOR DIALYSIS PATIEN TS. POCT-GLUCOSE [id number] 14:10:00 Test Item Value Reference Range Interpretation Comments POC-GLUCOSE METER 352 mg/dL 70-110 H TESTED AT [address] (BEAKER) (test code [address] [facility] [place] = 1538) [address] CBC W/PLT COUNT & AUTO [id number] 13:30:00 Test Item Value Reference Range Interpretation [...] 0.00-0.20 (test code = 417) URINALYSIS W/ [id number] 13:01:00 Test Item Value Reference Range Interpretation [...] 1663) SOURCE(BEAKER) (test code = 2795) KETONE, [id number] 12:58:00 Test Item Value Reference Range Interpretation Comments KETONES, BLOOD (BEAKER) (test code 0.1 mmol/L <0.4 = 1103) BLOOD GAS, [id number] 12:48:00 Test Item Value Reference Range Interpretation [...] (test code = 1819) 37.0 % POCT-GLUCOSE [id number] 12:04:00 Test Item Value Reference Range Interpretation Comments POC-GLUCOSE METER > mg/dL 70-110 HH OUTSIDE ME ASURING (BEAKER) ([facility] [address] BACTERIAL - [id number] 03:02:00Negative (02/25/17 9:02 PM)[facility] [id number] 03:02:00 Test Item Value Reference Range Interpretation Comments Tube Num CSF (test code = Tube Num CSF) 1 1 [facility] [id number] 03:02:00Clear (02/25/17 9:02 PM)[facility] [id number] 03:02:00Colorless (02/25/17 9:02 PM)[facility] [id number] 03:02:00Colorless (02/25/17 9:02 PM)[facility] [id number] 03:02:002[facility] [id number] 03:02:001[facility] [id number] 03:02:001[facility] [id number] 03:02:002[facility] [id number] 03:02:00 Colorless (02/25/17 9:02 PM)[facility] [id number] 03:02:00Clear (02/25/17 9:02 PM)[facility] [id number] 03:02:00 Test Item Value Reference Range Interpretation Comments Tube Num CSF (test code = Tube Num CSF) 4 1 [facility] [id number] 03:02:00Colorless (02/25/17 9:02 PM) [facility] [id number] 03:02:50730Vbvqhsnn HermannBODY FLUIDS 2017-02-26 03:02:0055[facility] HermannFUNGAL - [id number] 03:02:00 Negative (02/25/17 9:02 PM)[facility] [id number] 03:02:00Non Reactive (02/25/17 9:02 PM)[facility]annMOLECULAR [id number] 03:02:00Negative 2(02/25/17 9:02 PM)[facility]ann[facility]LECULAR DIAGNOSTIC 2017-02-26 03:02:00Negative 1(02/25/17 9:02 PM)[facility]annVIRAL - SEROLOGY 2017-02-26 03:02:00Negative (02/25/17 9:02 PM)[facility]annCHEM PANEL 2017-02-26 01:42:000.9[facility]annCHEM [id number] 01:42:0023[facility]annCHE[facility] [id number] 01:42:004.3[facility]annCHEM [id number] 01:42:0011.3[facility]annCHEM [id number] 01:42:09692Kidsocjn HermannCHEM [id number] 01:42:000.3[facility] HermannCHEM [id number] 01:42:0016 [facility]annCHE[facility] [id number] 01:42:0017[facility]annCHEM PANEL 2017-02-26 01:42:008.2[facility]annCHE[facility] [id number] 01:42:004.3[facility]annCHE[facility] [id number] 01:42:53553Vtmwpmwu HermannCHEM ZIRCW8924-21-50 01:42:000.70[facility] HermannCHEM [id number] 01:42:89708Airieech HermannCHEM [id number] 01:42:008.9[facility]annCHEM [id number] 01:42:0097 [facility]annCHE[facility] [id number] 01:42:0026[facility] HermannCHEM PANEL 2017-02-26 01:42:27674Glynkcbc HermannCHEM [id number] 01:42:0016[facility] HermannCHEM [id number] 01:42:003.9[facility] HermannCHEM [id number] 01:42:001.8[facility]orial HtnoxblDCONYAKFIC0450-06-97 01:42:51893Zdzxnkeq Jona PIWGDAPVRM7256-58-06 01:42:0082.2[facility]orial JnafhauMGXUTMBOQG0017-87-32 01:42:00 37.1Memorial UpgxwjcNTPTNNLIZC8624-84-29 01:42:007.4[facility] HermannHEMATOLOGY 2017-02-26 01:42:0014.1[facility]orial SmlahbfLVBJVBCSHC4118-02-89 01:42:00 Test Item Value Reference Range Interpretation Comments MCH (test code = MCH) 27.6 pg 27.0-31.0 Memorial WrqldckPWOAYCNNAH0198-42-00 01:42:0033.6[facility] HermannHEMATOLOGY 2017-02-26 01:42:004.52[facility] WdhuhmeNWHIHGYFVB7881-24-37 01:42:0012.5[facility]orial VmtmcjgDHDFESXLEB3833-12-52 01:42:007.1[facility] SobecyvBFRMIXTLKD1813-85-62 01:42:000.8[facility]orial KztdubeZPYESIMMMO6835-56-91 01:42:002.8[facility] Jona JCKWKRPNRG7954-11-52 01:42:003.8[facility]orial XdphmgqIJNASKPOFT2741-98-50 01:42:000.4 Memorial XdynbpkBJYDSNWYMR0635-88-99 01:42:0053.4[facility] HermannHEMATOLOGY 2017-02-26 01:42:0039.1[facility]orial OtcuwkfUHEVHZQGFL2658-43-16 01:42:001.4[facility]orial ZbmcmmuQYIVIUPOMW2172-18-73 01:42:005.3[facility]orial ZymvfkuSLVGITYNJH4001-26-92 01:42:000.1[facility]orial BliycefQORCRERWYP4752-32-86 01:42:000.1[facility] HermannURINE AND CVAXU5109-53-91 01:42:000.2[facility]annURINE AND [id number] 01:42:00Negative (02/25/17 7:42 PM)[facility] [id number] 01:42:00Negative *NA*(02/25/17 7:42 PM)[facility] [id number] 01:42:00Negative *NA*(02/25/17 7:42 PM)[facility] [id number] 01:42:00Negative (02/25/17 7:42 PM)[facility] [id number] 01:42:00Negative (02/25/17 7:42 PM)[facility] [id number] 01:42:00Negative (02/25/17 7:42 PM)[facility] [id number] 01:42:00 Test Item Value Reference Range Interpretation Comments UA pH (test code = UA pH) 6.0 1 5.0-8.0 [facility] [id number] 01:42:00 Test Item Value Reference Range Interpretation Comments UA Spec Grav (test code = UA Spec 1.010 1 Grav) [facility] [id number] 01:42:00Yellow *NA*(02/25/17 7:42 PM) [facility] [id number] 01:42:00Slight Cloudy (02/25/17 7:42 PM)[facility]annVIRAL - [id number] 01:42:00Negative (02/25/17 7:42 PM)[facility] - [id number] 01:42:00Negative (02/25/17 7:42 PM)[facility]annCHEM [id number] 09:02:83683Jmorjyjh HermannCHEM PANEL 2017-01-26 09:02:000.2[facility]annCHEM [id number] 09:02:55400Sjaqohry HermannCHEM DQWJN1742-31-51 09:02:0012[facility]annCHEM VSUWE6367-24-28 09:02:003.3[facility]annCHEM VVPOF5909-46-96 09:02:002.4[facility]annCHEM HLKFE8820-93-02 09:02:005.7[facility]annCHEM [id number] 09:02:009.7 [facility]annCHE[facility] [id number] 09:02:12199Weczwqtx HermannCHEM PANEL 2017-01-26 09:02:007.4[facility]annCHEM [id number] 09:02:000.7[facility]annCHEM BYJDQ4169-58-51 09:02:000.40[facility]annCHEM GXQRJ6791-73-56 09:02:005[facility]annCHEM ZHQTT7304-53-29 09:02:0037[facility]annCHEM GDJSO6224-61-53 09:02:0044[facility]annCHEM YHIRC7485-21-70 09:02:003.7 [facility]annCHEM SAFOK4340-53-01 09:02:32348Nczeuuvx HermannCHEM PANEL 2017-01-26 09:02:0025[facility]annCHEM UNYUD2604-82-34 09:02:79372Pcednyzv HermannCARDIAC XQAIBAF0915-31-72 22:26:00<0.02[facility] HermannPARATHYROID IQGJRKK6788-91-79 22:26:000.99[facility] HermannPARATHYROID KFPMSMM6152-03-45 22:26:001.01[facility]annCHEM [id number] 20:00:002.6[facility]annCHEM AJKCH2087-31-23 20:00:36173Munaomqc HermannCHEM JXFXD9745-11-85 20:00:000.50 [facility]annCHEM [id number] 20:00:75230Svnltdis HermannCHEM PANEL 2017-01-25 20:00:003.6[facility]annCHEM [id number] 20:00:0025[facility]annCHEM JEHAO3633-75-87 20:00:83683Phwpnbms HermannCHEM UFHRL2994-91-03 20:00:008.6[facility]annCHEM MNJBD6415-93-00 20:00:006.9[facility]annCHEM KDNMK0369-38-30 20:00:06013Ttpkendq HermannCHEM ARMSB8983-71-97 20:00:008 [facility]annCHE[facility] XIWSF4171-43-46 08:54:002.7[facility]annCHEM PANEL 2017-01-25 08:54:35869Rlckkilk HermannCHEM LSGLN7429-12-74 08:54:000.60[facility]annCHEM YCVHH5681-23-00 08:54:009[facility]annCHEM YZJCD9857-02-91 08:54:49851Islmmmbt HermannCHEM TBQSF1136-16-54 08:54:0012.5[facility]annCHEM FIPKX0854-28-07 08:54:003.5[facility]annCHEM GLOES4721-41-34 08:54:74627 [facility]annCHE[facility] ASIEA2553-63-05 08:54:0023[facility]annCHEM PANEL 2017-01-25 08:54:007.1[facility]annCHEM RFIWH0474-20-05 08:54:69157Nomlrlbb HermannCHEM ZGMHP5575-01-22 08:54:001.7[facility] CmvsyvpUZMUSGEYGL9512-27-40 08:54:007.4[facility] QatdpyrJPNWHOBZKF8691-16-60 08:54:0013.6[facility] ZKBXGUBDCU2781-51-15 08:54:20652Xbcjfrva UjcpmzwBVBINYKXSB3243-38-55 08:54:00 33.4[facility] CofqelqLXVENQAOIA3846-77-24 08:54:0082.5[facility] HermannHEMATOLOGY 2017-01-25 08:54:00 Test Item Value Reference Range Interpretation Comments MCH (test code = MCH) 27.6 pg 27.0-31.0 [facility] RgpcjdgHLRRTWCVJZ7590-35-89 08:54:0010.7[facility] HermannHEMATOLOGY 2017-01-25 08:54:0032.0[facility] ZjmxuraFMLSTPLWOH6448-88-38 08:54:005.5[facility] McqaaujIKMIDZHVWG7456-40-95 08:54:003.88[facility] JdytuxhNHYCETUBKB6387-66-15 08:54:007.2[facility] HfeoyytHOJFFEFFFA1713-79-51 08:54:000.4[facility] BYFNOGUFWM0199-57-70 08:54:003.0[facility] XennpzmISTNHASIFR4527-12-06 08:54:002.0 [facility] GhskpkeJJHDKYTPEM0809-57-50 08:54:000.9[facility] HermannHEMATOLOGY 2017-01-25 08:54:000.6[facility] RgiigriUMMHMYAOVB9934-01-07 08:54:0036.3[facility] NoyupxwKXTLPBPXUF9864-85-98 08:54:0055.0[facility]annURINE AND STOOL 2017-01-25 04:54:00Negative (01/24/17 11:54 PM)[facility] STOOL 2017-01-25 04:54:00Positive *ABN*(01/24/17 11:54 PM)[facility] AND WBGPZ4939-41-84 04:54:00Negative (01/24/17 11:54 PM)[facility] ETSKB3275-35-62 04:54:00Negative *NA*(01/24/17 11:54 PM)[facility] FRMET7318-46-00 04:54:00Negative (01/24/17 11:54 PM)[facility] DNIYK2200-72-65 04:54:000.2[facility] AND WBHTD8731-29-85 04:54:00Negative *NA*(01/24/17 11:54 PM)[facility] STOOL 2017-01-25 04:54:00 Test Item Value Reference Range Interpretation Comments UA pH (test code = UA pH) 5.5 1 5.0-8.0 [facility] SYAGF5541-45-00 04:54:00<=1.005 *NA*(01/24/17 11:54 PM)[facility] FKCSC7443-91-22 04:54:00Yellow *NA*(01/24/17 11:54 PM)[facility] AND XPRBY2597-00-51 04:54:00Clear (01/24/17 11:54 PM) [facility]annCARDIAC ISQGZWD4641-83-63 02:44:0062[facility]annCARDIAC QEJIBZD2136-08-07 02:44:00<1.0[facility]annCARDIAC ODYIIDE7826-16-90 02:44:00<0.02[facility]annCARDIAC GCRMTCC6413-31-34 02:44:00<1.6 [facility]annCHEM JIXDG6769-69-90 02:44:0014[facility]annCHEM PANEL 2017-01-25 02:44:000.5[facility]annCHEM PPLFM8597-38-44 02:44:0037[facility]annCHEM JRAGE4856-47-24 02:44:41013Mvkdrevs HermannCHEM HURWF0109-99-10 02:44:000.7[facility]annCHEM NXTQW2334-73-04 02:44:004.7[facility]annCHEM FZHKB3666-24-50 02:44:003.5[facility]annCHEM URTCF3209-04-31 02:44:0016 [facility]annCHE[facility] PWWVD5454-06-09 02:44:008.2[facility]annCHEM PANEL 2017-01-25 02:44:42345Uhtuelvo NzgnvoqEWTDUETVQZ9425-18-08 02:44:0013.7[facility] HmzkylhYPSYGHDKNL4006-26-83 02:44:0041.6[facility] DnnjfbpPHZPZLNZEB8154-56-90 02:44:0083.6[facility] ZrfbqdqRXEVIRKYNP5078-97-85 02:44:00 Test Item Value Reference Range Interpretation Comments MCH (test code = MCH) 27.5 pg 27.0-31.0 [facility] KnvmvfnSRJTJJQIVX0353-27-51 02:44:0032.9[facility] HermannHEMATOLOGY 2017-01-25 02:44:0013.6[facility] KnoxuflJYUWDFGIXY5564-01-61 02:44:66325Mnqjfira OyyzbflPZFSKTWWSC8569-51-76 02:44:008.1[facility] EavivofOVVKQTQSBE4399-00-47 02:44:005.8[facility] ZqoaibwQMMTAXVQUG9436-21-12 02:44:004.97[facility] DKAACMMHQN9700-75-46 02:44:000.4[facility] LypwdohDQHMINIRAQ9606-40-07 02:44:000.7 [facility] VzxpaqkFOIGJWPBMY9290-94-51 02:44:003.5[facility] HermannHEMATOLOGY 2017-01-25 02:44:007.1[facility] CrapzzrSNWOAKUQLF0301-44-62 02:44:000.6[facility] ZfotnlfBDFBNJMHMO9031-41-80 02:44:001.8[facility] IutaiycNAQWVUPTRD9511-31-81 02:44:0059.9[facility] OqlcxpjKDELFVAZNN7277-99-93 02:44[facility]0031.7[facility] HNECIFV2380-61-95 09:22:00 Test Item Value Reference Range Interpretation [...] S Sulfamethoxazole (test code = 47) POCT-GLUCOSE WSQDO9380-07-25 23:15:00 Test Item Value Reference Range Interpretation Comments POC-GLUCOSE METER 227 mg/dL 70-110 H TESTED AT [address] (BEAKER) (test code [facility] [place] = 1538) [address] URINALYSIS W/ QQBOKBDMDKD1123-16-53 22:36:00 Test Item Value Reference Range Interpretation [...] 1663) SOURCE(BEAKER) (test code = 2795) KETONE, HSZTK1719-41-01 22:32:00 Test Item Value Reference Range Interpretation Comments KETONES, BLOOD (BEAKER) (test code 0.6 mmol/L <0.4 H = 1103) BLOOD GAS, HHFBVS4443-83-04 22:30:00 Test Item Value Reference Range Interpretation Comments PH VENOUS (BEAKER) (test code = 7.39 7.32-7.42 701) PCO2 VENOUS (BEAKER) (test code = 48 mmHg 41-51 755) PO2 VENOUS (BEAKER) (test code = 28 mmHg 25-40 702) O2 SATURATION VENOUS (BEAKER) 51.3 % 40.0-70.0 (test code = 703) HCO3 VENOUS (BEAKER) (test code = 29 mmol/L 21-29 705) BASE EXCESS VENOUS (BEAKER) (test 3.0 mmol/L -2.0-3.0 code = 704) PATIENT TEMPERATURE (BEAKER) (test 37.0 C code = 1818) FIO2 (BEAKER) (test code = 1819) 21.0 % SCREEN, LGSTS2526-66-16 22:29:00 Test Item Value Reference Range Interpretation Comments TEST URINE (BEAKER) (test Negative code = 583) TROPONIN H1719-70-67 21:42:00 Test Item Value Reference Range Interpretation [...] CK-MB Reference Range:<5 Normal5-10 Borderline>10 AbnormalCOMPREHENSIVE METABOLIC DEWAH7837-55-70 21:34:00 Test Item Value Reference Range Interpretation [...] S NOT APPLICABLE FOR DIALYSIS PATIEN TS. GSHWCB4815-46-20 21:32:00 Test Item Value Reference Range Interpretation Comments LIPASE (BEAKER) (test code = 749) 28 U/L 6-51 CBC W/PLT COUNT & AUTO NJJYMQKJMICU5138-83-11 20:55:00 Test Item Value Reference Range Interpretation [...] L 0.00-0.20 (test code = 417) POCT-GLUCOSE KWWEO1695-92-78 20:56:00 Test Item Value Reference Range Interpretation Comments POC-GLUCOSE METER 446 mg/dL 70-110 HH Notified R Diana MD/TESTED AT ([facility]) (test code [address] [place] = [address]) [address] [facility] [address] BEDSIDE GLUCOSE AIJVCUW5158-77-04 15:13:51735Khpuzgxy HermannBEDSIDE GLUCOSE QSLFOPH1290-01-44 04:18:41174Cgxhgmfu FhpxmpsLIGUFBDOO9698-24-20 03:05:000.14 [facility] YeknoelCVEUSZSYD7921-54-83 03:05:008[facility] AkoobowUDOHJYZUZ5643-02-00 03:05:000.2[facility] ZcekfpgOYSACUIDR9679-35-52 03:05:0027[facility] CHWGQIENZ1170-49-10 03:05:0013.2[facility] SzhxwpiHNTSUPZUF8688-54-31 03:05:008.8 [facility] YckfrmlFOEBTGICT5007-78-41 03:05:007.6[facility] HermannCHEMISTRY 2011-11-29 03:05:0016[facility] LefjjbiTJJDSTMLO4114-58-40 03:05:003.8[facility] VpwkruqMNXWFVSCW4885-27-44 03:05:003.8[facility] HetbmqxNXTJJBDVE5862-58-62 03:05:001.0[facility] TtowoxkOZWAQADUZ6205-70-53 03:05:99220Obhweulp [facility] UHJLJIUQC3303-49-87 03:05:0013[facility] FxgmrpgMDJYQPYAH2463-60-60 03:05:60981 [facility] XvoceluSSADZKBMB9842-39-32 03:05:0098[facility] HermannCHEMISTRY 2011-11-29 03:05:000.7[facility] LpxjrczVJOESZGWL6723-16-93 03:05:0011[facility] RmqiztwUTHXFHXYJ2374-37-27 03:05:004.2[facility] LahrnqzJNIIVNLPF7754-02-25 03:05:94350Xpbzhozh NtbvllzNNJYMRQAFO1693-66-68 03:05:004.41[facility] BBCJYDVRVX7766-13-16 03:05:005.7[facility] ThjlghkGQVNDMYNJB6588-09-62 03:05:00 33.2[facility] VjmwdwbRNTZLHUCWG4722-76-45 03:05:0012.9[facility] HermannHEMATOLOGY 2011-11-29 03:05:0013.8[facility] DuisgitSZLGPLSGTL4788-99-62 03:05:0088.4[facility] ZkkhpwvFZCMLHTWDH4858-87-80 03:05:00 Test Item Value Reference Range Interpretation Comments MCH (test code = MCH) 29.3 pg 27.0-31.0 N [facility] UbfmzwbIFFTWFTBLW6437-10-15 03:05:0038.9[facility] HermannHEMATOLOGY 2011-11-29 03:05:007.5[facility] YbtttymYCIGMUDRST1468-79-36 03:05:67467Txlolpbz MscvgfyETWFFTNOED6815-46-05 03:05:0057.5[facility] YfueeylYZQTOIEQIT8797-46-03 03:05:000.5[facility] CjtkrjgYQDTLCZCES7147-23-64 03:05:001.5[facility] CCGSUHRUCZ3430-84-65 03:05:005.3[facility] QtqgzbuXAFTZIUTXJ1839-67-90 03:05:00 35.2[facility] BrxeorxFAEYMPNIAB5029-39-95 03:05:002.0[facility] HermannHEMATOLOGY 2011-11-29 03:05:003.3[facility] XgawjbxCHQIMJBYPA3150-61-54 03:05:000.1[facility] GjwsyymGENZKNWWYK2598-84-41 03:05:000.3[facility] VizxoymRDRRPZWPFW2325-34-66 03:05:000.0[facility] TibrrauBBBYKFLSKY0079-56-04 03:05:00 Test Item Value Reference Range Interpretation Comments UA Spec Grav (test code = UA Spec 1.010 1 N Grav) [facility] WrljumsQWRFEIVPJW5618-74-42 03:05:00 Test Item Value Reference Range Interpretation Comments UA pH (test code = UA pH) 5.5 1 5.0-8.0 N [facility] EskxyjyPRVCDQTGJP9570-49-27 03:05:00Yellow *NA*(11/28/2011 22:05:00) [facility] EmffiruCMHTGGBVAP8308-15-75 03:05:00Clear (11/28/2011 22:05:00)[facility] YajktqjVDAFTFZRVE1443-27-02 03:05:00Negative (11/28/2011 22:05:00)[facility] UehebfaNKKGVKNKEF8626-45-09 03:05:00Negative (11/28/2011 22:05:00)[facility] CmxnoadXQMDDCOUCD0265-35-22 03:05:000.2[facility] CliunbdUVQRTPGTOJ5126-29-50 03:05:00>=1000 mg/dL *ABN*(11/28/2011 22:05:00)[facility] HermannURINALYSIS 2011-11-29 03:05:00Negative mg/dL *NA*(11/28/2011 22:05:00)[facility] KKTJZLTKTA2485-34-26 03:05:00Negative mg/dL (11/28/2011 22:05:00)[facility] JxwtmzgOLZPVMGAVS0440-08-17 03:05:00Negative (11/28/2011 22:05:00)[facility] VczkhcwCNFEXCDGCY6637-38-23 03:05:00Negative *NA*(11/28/2011 22:05:00)[facility] LnehgdrEALKUPIYHW2785-63-08 03:05:00Rare /LPF (11/28/2011 22:05:00)[facility] EaelseuPDNSTFECWA5259-27-55 03:05:00Occasional /HPF (11/28/2011 22:05:00) [facility] TrqplhlZZAFRXUBSD2156-53-87 03:05:000-2 /HPF (11/28/2011 22:05:00) [facility] WbqrjdkZBJOUOVEOW7716-39-17 03:05:000-2 /HPF (11/28/2011 22:05:00) [facility] TxveungOKGPAVIQTW9650-72-54 03:05:00Performed (11/28/2011 22:05:00) [facility] HermannBEDSIDE GLUCOSE WORUGMU8743-51-21 02:45:00>400[facility] HermannBEDSIDE GLUCOSE TAXMVKB6981-62-21 06:10:16900Znnvkuae HermannBEDSIDE GLUCOSE IHMDNFD1786-68-82 05:04:0094[facility] MpukzwnPUVBZGHKZ4223-77-25 03:06:00 72[facility] GhvtcfdEKYDAZQOT5068-01-26 03:06:0040[facility] HermannCHEMISTRY 2011-10-25 03:06:007.42[facility] RvwxnqkIMNDXQLBT3813-80-22 03:06:000.0[facility] WmizugkQLYEJXFQA2269-69-93 03:06:00Rm Air (10/24/2011 22:06:00)[facility] GPCPZCJBO6464-05-27 03:06:0095.0[facility] OybkbesUMMTURCKR3680-69-02 03:06:001 [facility] DucggnbHIJMBIIEP9290-24-66 03:06:0026[facility] HermannCHEMISTRY 2011-10-25 03:05:31554Exawgykr HgryhxbMOGXVTOAI4890-97-14 03:05:57494Edfnibwc YooxquiNSZGCFPXQ4018-42-03 03:05:0019[facility] WjnkgibWNRMNHNBG2465-05-36 03:05:008.4[facility] ImzilqmAISKSPHXB3176-49-89 03:05:17353Upvzsceo Jona EDNSUNNVF3650-62-69 03:05:40655Hkkonbqg HzuoxrgWEVDTADSI2169-25-94 03:05:003.8 [facility] DvyhfelTUSRSWTOH9634-63-01 03:05:003.7[facility] HermannCHEMISTRY 2011-10-25 03:05:0027[facility] PuejnlnUVEZKBCTD1507-81-05 03:05:0012.2[facility] SzirwzmWZHMDJDUG5995-00-43 03:05:004.2[facility] KqdoycgYORZZPCBT2273-99-51 03:05:000.8[facility] XmdhuhoFJOZOQHPS9961-82-13 03:05:76391Gyqdmada [facility] YSLNYTVDZ4964-09-90 03:05:0024[facility] OwivzjaGNANXSXYT2301-17-45 03:05:007.5 [facility] YtrqaytVGKWPBXVT8661-69-10 03:05:0010[facility] HermannCHEMISTRY 2011-10-25 03:05:30673Duwvuswr ModscsjITVMKHERN1911-75-61 03:05:000.3[facility] SgjshltQXBLNNASV0542-23-93 03:05:001.0[facility] TunahjdYFVDBFFEG3636-49-64 03:05:0017[facility] YpnlaxfJZKNUCTZV1660-68-89 03:05:000.22[facility] PXDTZEVEHL1278-75-75 03:05:000.1[facility] KzsmtcmTNQNODSEHJ3958-23-69 03:05:002.0 [facility] UeavpkmQMRKFYOWTT3781-93-42 03:05:000.0[facility] HermannHEMATOLOGY 2011-10-25 03:05:000.4[facility] OnbaoqkUGISDIYSKM3893-62-98 03:05:0029.4[facility] EcjldjgLFGLDUAWWV4931-45-48 03:05:004.3[facility] UzwuwbsHMNDSFOJWL5853-06-30 03:05:005.7[facility] GlzzioxLYKHZMTTBA5823-14-60 03:05:000.4[facility] UYSHDDQDVA8306-45-41 03:05:001.2[facility] YrbfsnxTVYDJAOOMQ7013-41-14 03:05:00 63.3[facility] SombkwgIQWZKCDOJW7328-34-28 03:05:0014.0[facility] HermannHEMATOLOGY 2011-10-25 03:05:95593Jqeudwpj SbdjqysHDIZQLFZST6015-15-31 03:05:008.0[facility] ApwvahbPEEFUMHNRV7746-13-22 03:05:0013.3[facility] RlntlmgHEEMHLHUJD8626-85-22 03:05:0039.4[facility] EfixiozQHOEAMLLAK2919-61-87 03:05:0086.2[facility] BJBKVTZIAJ8469-67-29 03:05:00 Test Item Value Reference Range Interpretation Comments MCH (test code = MCH) 29.1 pg 27.0-31.0 N [facility] XhxejtnBOQIDAZRFF4306-01-58 03:05:0033.8[facility] HermannHEMATOLOGY 2011-10-25 03:05:006.9[facility] JjhrlmvQOCBUWGCUT3621-18-58 03:05:004.57[facility] KfwxomiNVAJSKQRZP4633-97-34 03:05:00Positive *ABN*(10/24/2011 22:05:00)[facility] TuibodpZFBQACQKHJ3046-05-25 03:05:00Negative (10/24/2011 22:05:00)[facility] VyimuhfFNOKIXQTGK4144-57-39 03:05:00Negative (10/24/2011 22:05:00)[facility] SjpxllxJKVOABNGNG7303-79-81 03:05:00>=1000 mg/dL *ABN*(10/24/2011 22:05:00) [facility] LqkmxlySRDRZHETJW1665-07-81 03:05:00 Test Item Value Reference Range Interpretation Comments UA pH (test code = UA pH) 6.0 1 5.0-8.0 N [facility] AdakbjbUYHCXWSLUK5391-84-19 03:05:00 Test Item Value Reference Range Interpretation Comments UA Spec Grav (test code = UA Spec 1.015 1 N Grav) [facility] GbexgxwFZALPJYPFT9942-92-20 03:05:00Yellow *NA*(10/24/2011 22:05:00) [facility] MbypawjLXCBQLVYLT9501-94-09 03:05:00Clear (10/24/2011 22:05:00)[facility] XlurfngITSUDABVGY5786-73-30 03:05:000.2[facility] ZktvaiaHTJZSZDEGI7224-91-33 03:05:00Negative *NA*(10/24/2011 22:05:00)[facility] TibwpsmDVHERRTQEA5757-33-67 03:05:00Negative (10/24/2011 22:05:00)[facility] QawgtujNWDJCAHVXC2041-41-47 03:05:00Negative *NA*(10/24/2011 22:05:00)[facility] PpvzqvmHYXYUZSFID3879-32-70 03:05:00Rare /LPF (10/24/2011 22:05:00)[facility] EvgruyuNTWPLMBYFZ7167-05-85 03:05:00Moderate /HPF (10/24/2011 22:05:00)[facility] DhsbqpxQCZGBHSMGX9446-76-32 03:05:000-2 /HPF (10/24/2011 22:05:00)[facility] QbgfupsJDFHOTGQGK9767-52-64 03:05:00Performed (10/24/2011 22:05:00)[facility] YkekgqpXQTAHSHDMB7000-77-77 03:05:006-10 /HPF *ABN*(10/24/2011 22:05:00)[facility] SgdyeozHRLUEUDQKC8207-21-88 03:05:00Rare /LPF (10/24/2011 22:05:00)[facility] HermannBEDSIDE GLUCOSE TESTING 2011-10-25 02:43:00>400[facility] HermannBEDSIDE GLUCOSE VWITPCP5657-57-82 08:15:85149Iqrcpojp HermannBEDSIDE GLUCOSE NJVJQUF4751-05-92 07:07:00>400 [facility] ZwxzhrcBNSZLQQPW0590-73-13 05:10:05886Uecnxwac HermannCHEMISTRY 2011-05-23 05:10:000.8[facility] IlatwktJFVXATHGL8633-38-08 05:10:0026[facility] CbkadclEPPNRLNBB8500-52-35 05:10:0096[facility] DhwxubeQKDITCHVR1666-68-38 05:10:003.9[facility] MkbtszoIVXQXFLBM9811-00-07 05:10:0012.9[facility] MBDNBDFOI4835-60-04 05:10:004.0[facility] XuukgvjCKJAHPYXD7692-40-97 05:10:007.8 [facility] KcrouyjJTJYEINLB4973-21-06 05:10:0015[facility] HermannCHEMISTRY 2011-05-23 05:10:89224Usrtqifc IekohsvLRRFTWYRZ3017-40-98 05:10:001.1[facility] IneddyzDAUNIHVTK0384-14-08 05:10:003.8[facility] CpyluycRDUYPKGDS3733-43-80 05:10:008.6[facility] NpqrxnqQXHDQJMXR3544-11-67 05:10:0011[facility] YQTCZZQGH5408-95-72 05:10:000.4[facility] WgzcsovQUTJAOZQE7810-19-50 05:10:70382 [facility] UpskfsqKHZURVICZ6964-99-97 05:10:0015[facility] HermannCHEMISTRY 2011-05-23 05:10:30180Jjhrbqwq VjszltsPOHSWIFSD7615-95-24 05:10:0012[facility] BubzewxZMXDNGWYG3229-56-87 05:10:48712Zyqqednl XjdconfFORQUEDAV5686-70-37 05:10:000.36[facility] EkzmpncYTVCBEGHDP6130-08-81 05:10:77450Amtdgmos [facility] RILKMBVAYF2178-62-34 05:10:0034.3[facility] PavsiytEQIOUPZLBU3144-23-19 05:10:00 7.9[facility] EfosriwZPEFIKRTNJ8332-60-88 05:10:0013.0[facility] HermannHEMATOLOGY 2011-05-23 05:10:00 Test Item Value Reference Range Interpretation Comments MCH (test code = MCH) 29.5 pg 27.0-31.0 N [facility] GzqnfugTSOPXJZYDA6701-96-52 05:10:0038.1[facility] HermannHEMATOLOGY 2011-05-23 05:10:0086.0[facility] IhqlupvFMYELVMFUF1256-35-71 05:10:004.43[facility] SegjwoeYODMYCYDNM3252-28-02 05:10:005.9[facility] OfmzvnqNYUHTFINHI0049-17-01 05:10:0014.0[facility] WgzksptZWWTBRZSTC9220-14-47 05:10:000.0[facility] IETHATXERO5554-08-15 05:10:001.7[facility] RlmllnlHGWSFFEVTY7120-99-74 05:10:000.3 [facility] OvxvlkwHCOHOZLXIZ7992-59-86 05:10:000.6[facility] HermannHEMATOLOGY 2011-05-23 05:10:003.8[facility] ZjyuetqRGNOORQCHU6269-85-01 05:10:000.1[facility] ItstbvxJAJBXFEZSU4951-76-40 05:10:004.7[facility] TkcyksgLLQLRTNQVY1097-52-88 05:10:0028.9[facility] MponystCXLCMOCIYC2254-42-94 05:10:002.5[facility] OMWOSBHMEB0535-88-38 05:10:0063.3[facility] MdbbchmQRWVWAJDDR1639-34-85 05:10:000- 2 /HPF (05/22/2011 23:10:00)[facility] PqpwncmPIVCGCZJUG0360-99-89 05:10:00 Occasional /HPF (05/22/2011 23:10:00)[facility] GhjdlssRQFPMPSUVO4365-88-73 05:10:00Negative (05/22/2011 23:10:00)[facility] XpcgxkbQYQAEFCJGV7496-80-84 05:10:00Negative *NA*(05/22/2011 23:10:00)[facility] HhzvvqoUHVXFHQNBB2015-04-41 05:10:00>=1000 mg/dL *ABN*(05/22/2011 23:10:00)[facility] HermannURINALYSIS 2011-05-23 05:10:00Negative (05/22/2011 23:10:00)[facility] Herm[facility] 2011-05-23 05:10:00 Test Item Value Reference Range Interpretation Comments UA pH (test code = UA pH) 5.0 1 5.0-8.0 N [facility] TslbkamQIFRJRABYW5163-44-17 05:10:003-5 /HPF (05/22/2011 23:10:00) [facility] YsutbgyNGPAVUTYCJ2790-03-84 05:10:00Rare /LPF (05/22/2011 23:10:00) [facility] VrojbsmCKZCQUKQKY3160-62-10 05:10:000.2[facility] 2011-05-23 05:10:00Negative (05/22/2011 23:10:00)[facility] 2011-05-23 05:10:00Negative *NA*(05/22/2011 23:10:00)[facility] 2011-05-23 05:10:00Negative (05/22/2011 23:10:00)[facility] 2011-05-23 05:10:00Performed (05/22/2011 23:10:00)[facility] 2011-05-23 05:10:00Yellow *NA*(05/22/2011 23:10:00)[facility] 2011-05-23 05:10:00Clear (05/22/2011 23:10:00)[facility] 2011-05-08 00:16:00Negative (05/07/2011 18:16:00)[facility] 2011-05-08 00:16:000.2[facility] UkditveACAUDLVQRQ5768-55-48 00:16:00Negative *NA*(05/07/2011 18:16:00)[facility] MlwzdvbGJJODFPBAN1058-03-62 00:16:00Large *ABN*(05/07/2011 18:16:00)[facility] FbtbrhoJYSNMZZNMT0453-25-66 00:16:006-10 /HPF *ABN*(05/07/2011 18:16:00)[facility] SscynnxFJKGYJFLCL2299-65-27 00:16:00 Occasional /HPF (05/07/2011 18:16:00)[facility] HrtkyijVCYZELFFQZ8550-77-68 00:16:00Performed (05/07/2011 18:16:00)[facility] VuhogusYGGAZJTEGL4574-56-55 00:16:00Few /LPF (05/07/2011 18:16:00)[facility] DnjnsboKPBVMTGKIQ6598-13-69 00:16:00Negative (05/07/2011 18:16:00)[facility] AlknepxKLDSDDMSGZ8642-32-80 00:16:0021-50 /HPF *ABN*(05/07/2011 18:16:00)[facility] 2011-05-08 00:16:00Trace *ABN*(05/07/2011 18:16:00)[facility] 00:16:00>=1000 mg/dL *ABN*(05/07/2011 18:16:00)[facility] XDSLGQLPDX3652-00-64 00:16:00Negative (05/07/2011 18:16:00)[facility] GHKBMNMXWH5786-89-27 00:16:00 Test Item Value Reference Range Interpretation Comments UA Spec Grav (test code = UA Spec 1.010 1 N Grav) [facility] QxaidafLCSLVOXWER9416-35-41 00:16:00Clear (05/07/2011 18:16:00)[facility]iencpDCDVMLJZMP9968-74-21 00:16:00 Test Item Value Reference Range Interpretation Comments UA pH (test code = UA pH) 6.0 1 5.0-8.0 N [facility] TvlpffiNXQXXKHQWA4587-80-98 00:16:00Yellow *NA*(05/07/2011 18:16:00) [facility] KVSYJFQ8198-80-24 06:51:31949Scswyjvo Jona MYKYLZCDF8080-78-23 04:20:00Negative (04/19/2011 22:20:00)[facility] CQZSXKDTU2867-62-12 04:20:004.1[facility] JbqghfaOKLHXBKKS8561-22-68 04:20:0015 [facility] TatajnwOYTCVGFWR4069-11-44 04:20:009.2[facility]annCHEMISTRY 2011-04-20 04:20:0096[facility] FdgtkawPTDSGQLQW6753-12-33 04:20:0016.2[facility] UpqhgdpRBRGYOISK5894-26-52 04:20:0024[facility] DjynqerNXWCVYQKZ2466-71-34 04:20:004.0[facility] GopjcbgHHWLNAPCZ9155-73-16 04:20:008.1[facility] ZUECSTBYY2567-94-65 04:20:000.4[facility] RukgomcVAPCBCRWN4550-17-23 04:20:0092 [facility] GnyoqifZYONZJSQV1966-08-00 04:20:004[facility] PnhuxuyGDVYRYXRG3012-25-35 04:20:0014[facility] LritpdcVNOGQLAEN3783-39-20 04:20:001.0[facility] FZVNMUKSV9514-84-61 04:20:73477Jjkddeal CpdhusjAANGJUONM1813-87-25 04:20:000.8 [facility] FzdlwvePNBOEXZSC4325-30-77 04:20:0012[facility]annCHEMISTRY 2011-04-20 04:20:004.2[facility] HyjqxtsCWKMSLWMS7867-58-33 04:20:03001Gjofemcu TxvretlSFIVAUBGY5534-51-01 04:20:12442Aqcakpfi CucqrmkAZGBMSJTY7258-75-13 04:20:0070[facility] HzzxrsjWGLMQBTVZU2822-56-26 04:20:007.9[facility] UYEDRMHBZF4819-64-92 04:20:36935Mfyctfye MuazhodYMQSFMRJMU6544-94-99 04:20:00 4.54[facility] BmwswviNTESEVJYXF1618-46-43 04:20:0013.3[facility]annHEMATOLOGY 2011-04-20 04:20:00 Test Item Value Reference Range Interpretation Comments MCH (test code = MCH) 29.3 pg 27.0-31.0 N [facility] DiewbxsCHVPZWHQCJ0041-97-60 04:20:0033.9[facility]annHEMATOLOGY 2011-04-20 04:20:0014.0[facility] NzjsncuWWRTYXIUUY5950-50-14 04:20:0039.3[facility] SilifzhXKFATIPZOI1856-44-54 04:20:0086.5[facility] TtpbnevCWZAMHDJUI2579-91-99 04:20:008.6[facility] MdnnfkcNJUDSFXWCH3568-81-03 04:20:000.1[facility] NQSTYGGRGR0842-31-77 04:20:000.1[facility] MhmqxgoZUUASNTEZP6309-15-90 04:20:000.9 [facility] VztfswgLEOSUWNGZL9675-99-18 04:20:0019.9[facility]annHEMATOLOGY 2011-04-20 04:20:005.4[facility] CwwpkolDIYTXEJUOF4395-41-76 04:20:0073.1[facility] WavtavoOKTGOLYHIY6717-18-10 04:20:001.7[facility] VjepwzsXHROWOOOYT4177-86-24 04:20:000.5[facility] DipbnmpJGVFCXJVIV6008-27-37 04:20:000.7[facility] AZJIJVXLMX4211-34-72 04:20:006.3[facility] JiwlthlTIJMOEWGRQ4435-33-51 02:29:00 Negative *NA*(04/19/2011 20:29:00)[facility] BqyncjdIGBZSNFQPF8260-16-07 02:29:00 Negative *NA*(04/19/2011 20:29:00)[facility] XatzmurIKKCFXHQHB8717-45-51 02:29:00 Negative (04/19/2011 20:29:00)[facility] TibbnvtVYWVYJNAKH0947-61-06 02:29:00 Negative (04/19/2011 20:29:00)[facility] NjxeyjcMPRKZJASHR9493-43-44 02:29:00 Test Item Value Reference Range Interpretation Comments UA pH (test code = UA pH) 6.0 1 5.0-8.0 N [facility] PjcgvavZFJWZFEJLM4999-73-89 02:29:00>=1000 mg/dL *ABN*(04/19/2011 20:29:00)[facility] FdxmxrpLIRZIOJEKP4396-05-91 02:29:00Performed (04/19/2011 20:29:00)[facility] PjiwkmfCBGJSDZBNJ5294-59-79 02:29:00Negative (04/19/2011 20:29:00)[facility] MuyodjnUPGKVAGUJK8262-55-59 02:29:000.2[facility] UFJVKAABCD5544-66-76 02:29:00Negative (04/19/2011 20:29:00)[facility] IBFXOCEBIN3377-55-68 02:29:00Occasional /HPF (04/19/2011 20:29:00)[facility] VhjklqrJCRBESQRXL8915-52-54 02:29:00Occasional /LPF (04/19/2011 20:29:00) [facility] ScyvswaAVZICZNTZE6785-08-42 02:29:003-5 /HPF (04/19/2011 20:29:00) [facility] PqdqqxzBWYVGXLEFK2924-29-99 02:29:000-2 /HPF (04/19/2011 20:29:00) [facility] AcdwlpcLWLKJFEGCN1608-83-95 02:29:00Clear (04/19/2011 20:29:00)[facility] UghdmjpMVMJDEQWKS4231-11-32 02:29:00Yellow *NA*(04/19/2011 20:29:00)[facility] HermannBEDSIDE GLUCOSE GTIZDNH9445-69-12 05:47:61737Qbheaocd HermannCHEMISTRY 2011-03-26 02:45:00<3[facility] NwfbtkpVKUKBFGOH1862-99-39 02:45:009.2[facility] CjvjgxcJXODPWSFD8165-61-55 02:45:0014.0[facility] HbkiipdCDUITPVDN2690-23-48 02:45:0025[facility] VsaepahFPTBUNRDW2416-02-29 02:45:0097[facility] YRBFZCXYP7902-96-16 02:45:004.0[facility] SmetumyVNQSRQCRN2810-20-21 02:45:000.7 [facility] EvehbgzCEWQXTTLA8020-25-26 02:45:01678Rpjkproj HermannCHEMISTRY 2011-03-26 02:45:000.5[facility] JuoznucGLWMXJSYS9603-60-15 02:45:0069[facility] NcgsboeGTIIYTYCN3820-05-31 02:45:0014[facility] HrthzzaBRLWQCTOL8134-97-99 02:45:003.9[facility] XblkzikICAUUKICM6640-81-25 02:45:007.8[facility] GPPLTVYTX8155-93-76 02:45:0019[facility] UujoswjEVKLMPXAH8563-05-23 02:45:001.0 [facility] WdeocarUIEWAIELT7541-44-00 02:45:003.9[facility] HermannCHEMISTRY 2011-03-26 02:45:0013[facility] PbjvothGSKTWFIWR3721-56-65 02:45:66131Vkskjiab CfluswyMDLJKUXWB4969-11-76 02:45:53274Mdvmfips GoujoxrXTUUUVLWQQ0510-96-23 02:45:0012.7[facility] VxoyuhdMNWDHSTYTG0439-83-70 02:45:0014.0[facility] CLWUVWNNHA8451-31-18 02:45:0036.9[facility] QliwbwhHFLQHMRJOF0338-75-50 02:45:00 85.5[facility] KyrtryxNOTEUDPVXT9372-52-51 02:45:00 Test Item Value Reference Range Interpretation Comments MCH (test code = MCH) 29.5 pg 27.0-31.0 N [facility] LmqewwaKZDKIUEFTW9226-41-44 02:45:0034.5[facility] HermannHEMATOLOGY 2011-03-26 02:45:63151Hsqurmbz HaekotzWTDWJXUATK2504-02-09 02:45:008.2[facility] VwzpfznYXJKCJRTCJ9853-81-91 02:45:006.9[facility] TyxjjqnDJXZDBMONO1248-40-05 02:45:004.32[facility] OznnkpcCGJCOGSIEC8389-42-54 02:45:000.5[facility] FOECKBPXNV7542-67-68 02:45:004.6[facility] LcqiticPZSAABRFQV3149-72-21 02:45:001.9 [facility] ZuwgykuAEAOYVEONS0993-73-43 02:45:000.3[facility]annHEMATOLOGY 2011-03-26 02:45:000.1[facility] FxfdlriJEPYTXYMKW4016-03-89 02:45:000.0[facility] DhqjtkdPZYBSBXISK0413-79-83 02:45:0027.2[facility] LthszzjMKHFQCMVMF0929-54-78 02:45:0066.3[facility] AjmsplzRCNCJDRBYC7179-94-34 02:45:004.8[facility] VSFXZMNXFK1906-76-43 02:45:001.2[facility] SlpiqwfJKCPTOOQRJ2425-34-49 02:00:00 Occasional /HPF (03/25/2011 20:00:00)[facility] NgqcvnqSWTDNLEIKC5806-18-91 02:00:00Occasional /HPF *ABN*(03/25/2011 20:00:00)[facility]annURINALYSIS 2011-03-26 02:00:00Rare /LPF (03/25/2011 20:00:00)[facility]annURINALYSIS 2011-03-26 02:00:000-2 /HPF (03/25/2011 20:00:00)[facility]annUR[facility]ALYSIS 2011-03-26 02:00:000-2 /HPF (03/25/2011 20:00:00)[facility]annURINALYSIS 2011-03-26 02:00:00Negative (03/25/2011 20:00:00)[facility]annURINALYSIS 2011-03-26 02:00:00Performed (03/25/2011 20:00:00)[facility]annURINALYSIS 2011-03-26 02:00:00Negative (03/25/2011 20:00:00)[facility]annURINALYSIS 2011-03-26 02:00:00Negative (03/25/2011 20:00:00)[facility]annURINALYSIS 2011-03-26 02:00:000.2[facility] EdqjiexOEXUNVRZRO3576-38-73 02:00:00Yellow *NA*(03/25/2011 20:00:00)[facility] VyeiolrKRQTWOVCMW1666-82-06 02:00:00Clear (03/25/2011 20:00:00)[facility] ZidodyuONUZVWFTJK3843-62-53 02:00:00Negative *NA*(03/25/2011 20:00:00)[facility] IqpcvkcBCGCOXESQO5012-06-21 02:00:00>=1000 mg/dL *ABN*(03/25/2011 20:00:00)[facility] HjdhyhdDYLJAWSCBP0561-26-38 02:00:00 Negative *NA*(03/25/2011 20:00:00)[facility] LtubfcsEOJHTIOXAL4631-72-36 02:00:00 Test Item Value Reference Range Interpretation Comments UA pH (test code = UA pH) 6.0 1 5.0-8.0 N [facility] IdzzkuvTNGMRXGBQV1504-08-44 02:00:00Negative (03/25/2011 20:00:00) [facility] HermannBEDSIDE GLUCOSE CTXKAXA9055-83-48 16:26:03583.0[facility] PESSTRTRF6988-07-36 15:30:00<0.6[facility] ZjluqqiBFJEIQKJL7419-03-35 15:30:00 <0.5[facility] UojtleuZYAUIKGCI2760-79-39 15:30:0077.0[facility] HermannCHEMISTRY 2011-02-11 15:30:0077.0[facility] NbhcrbyGUOAZSBPA5981-12-23 15:30:00<0.02 [facility] HermannBEDSIDE GLUCOSE NOXOWMH3492-60-39 12:00:62471.0[facility] PNLXERFKC3115-29-97 09:29:001.5[facility] UmgcinsVNYYLIUSS4059-01-40 09:29:47348.0 [facility] SdlwpkyMCYDZELIV4392-48-18 09:29:0011.0[facility] HermannCHEMISTRY 2011-02-11 09:29:007.8[facility] GkycjfhPKPFJQUXU9180-53-62 09:29:0013.7[facility] VvxqhsaEERUZFEMZ1047-83-86 09:29:000.6[facility] UjfzkaoADMUZVQXA0089-04-32 09:29:49097.0[facility] BvwaekwJGXFHIYJW7383-26-64 09:29:003.7[facility] FTLYZGPXV2631-78-69 09:29:56727.0[facility] YoxrmuqVCQZPWQKS3648-43-22 09:29:00 24.0[facility] QjomrzdPVITFJTVY3754-68-03 09:29:00<0.02[facility] DVXNXCRSQ7122-12-13 09:29:0071.0[facility] YeqrhzvHRAXCEDVX5650-87-15 09:29:0071.0 [facility] BfkqnyrFRNJCECNDI4951-96-95 09:29:007.8[facility] HermannHEMATOLOGY 2011-02-11 09:29:0014.1[facility] XuibxnvVSVVDGHNOW2740-43-14 09:29:006.8[facility] XajzdcjZSBLRDMQKZ5271-21-61 09:29:0011.8[facility] YmpimjtIGMICWUYUL9382-28-63 09:29:004.11[facility] EqrshelFTHDJVTWXS4124-72-01 09:29:0035.3[facility] YEWTKTGTXS8811-32-82 09:29:00 Test Item Value Reference Range Interpretation Comments MCH (test code = MCH) 28.7 pg 27.0-31.0 N [facility] XayeupyBUZCBLLCLY0339-35-29 09:29:0085.7[facility] HermannHEMATOLOGY 2011-02-11 09:29:35769.0[facility] JlltrmxTTKATDUDZV1230-14-41 09:29:0033.5 [facility] DtxofxpIBHZPDRGXE1349-08-51 09:29:0026.3[facility] HermannHEMATOLOGY 2011-02-11 09:29:0065.8[facility] LoionbfXLJITJJQJW5713-84-90 09:29:006.1[facility] VyljrbmXRXCTNATXL9539-26-93 09:29:001.2[facility] EwnrochIPBCJUJPCL5607-24-11 09:29:000.6[facility] JyiaydpRJRNLTGCDH5587-15-24 09:29:004.5[facility] IFXDQLLCWE1719-62-64 09:29:001.8[facility] AiitmtwARSFGOBWLC6559-81-60 09:29:000.4 [facility] RxvqjmkHMMXCWOVMZ0418-24-14 09:29:000.0[facility] HermannHEMATOLOGY 2011-02-11 09:29:000.1[facility] HermannBEDSIDE GLUCOSE XPGZDWX1809-33-95 05:34:00 151.0[facility] AvankasQTAWYJWULN0522-24-30 03:26:00>=1000 mg/dL *ABN*(02/10/2011 22:26:00) ??[facility] TzymezoEQYNJMFUDX8040-54-25 03:26:00 Negative mg/dL *NA*(02/10/2011 22:26:00) ??[facility] FdqcozeHSVGYPHSTR4575-48-63 03:26:00 Test Item Value Reference Range Interpretation Comments UA pH (test code = UA pH) 6.5 1 5.0-8.0 N [facility]wnemlZIYAMMOBOE8057-46-87 03:26:00Negative mg/dL (02/10/2011 22:26:00) [facility] HospitalTixdxowHVGKKCKALQ9751-66-99 03:26:00Negative (02/10/2011 22:26:00) ??[facility] HospitalLhhfznaARPPVYWPDH1158-60-91 03:26:00Negative (02/10/2011 22:26:00) ??[facility] HospitalSeogbxiKKOSUPSJOM5803-26-98 03:26:000.2[facility] QHBXZGUZRS9080-72-93 03:26:00Negative (02/10/2011 22:26:00) ??[facility] PSHLMRAHWM2635-54-52 03:26:00Negative *NA*(02/10/2011 22:26:00) [facility] HospitalDiyvdpxXDQAJMBXFQ5156-88-60 03:26:00Clear (02/10/2011 22:26:00) ??[facility] HospitalAboaksuBMGLSOTKCR5131-35-80 03:26:00 Test Item Value Reference Range Interpretation Comments UA Spec Grav (test code = UA Spec 1.01 1 N Grav) [facility] HospitalLgygittTPRRIKDICP1987-11-63 03:26:00Yellow *NA*(02/10/2011 22:26:00) ?? [facility] HospitalPhqbcfsBNDVLPDVTD6893-96-73 03:26:000-2 /HPF (02/10/2011 22:26:00) ?? [facility] HospitalDfpezddQVCWFSGFLT8279-16-93 03:26:006-10 /HPF *ABN*(02/10/2011 22:26:00) ??[facility] HospitalEhjqywdUZLPUTTOUW0629-37-31 03:26:00Few /LPF (02/10/2011 22:26:00) ??[facility] HospitalVlijpkeOJVRFEBVTM6706-86-01 03:26:00Few /HPF (02/10/2011 22:26:00) ??[facility] HospitalLhqzgpkASGDRZHYJI0826-22-08 03:26:00Occasional /HPF *ABN*(02/10/2011 22:26:00) ??[facility] OuuxcjvKKOPHWVRTL7512-49-35 03:26:00 Performed (02/10/2011 22:26:00) ??[facility] RqulvafFJQSYMBJR4378-44-53 03:03:00 Negative *NA*(02/10/2011 22:03:00) ??[facility] ZpvnkhyMDWIABYCW9341-15-20 03:03:00<0.5[facility] JurildyBIYDUBCBC0935-18-25 03:03:00<0.02[facility] VdkufliEZUKZMUTK8986-18-62 03:03:007.0[facility] FuhiaavXKWPMZTIE0629-62-40 03:03:004.0[facility] VizivjmYZCJWVEFZ6063-43-70 03:03:007.5[facility] ZMZUMOEPI3018-24-58 03:03:00 Test Item Value Reference Range Interpretation Comments A/G Ratio (test code = A/G Ratio) 1.1 1 0.7-1.6 N [facility] AwjuvknIAKAZYCVX9452-36-34 03:03:003.5[facility] HermannCHEMISTRY 2011-02-11 03:03:0014.0[facility] VwjilauLNPIMPGAU4041-94-63 03:03:000.3[facility] BaxedllQSLTMIFDZ6299-25-84 03:03:0069.0[facility] HdnquneDXLZGJDXF7831-63-84 03:03:0022.0[facility] YbkzndmLWKXVCIIB3725-12-66 03:03:00 Test Item Value Reference Range Interpretation Comments B/C Ratio (test code = B/C Ratio) 20.0 1 6-25 N [facility] DostrhdKDDRPFZIF4266-39-73 03:03:0096.0[facility] HermannCHEMISTRY 2011-02-11 03:03:008.7[facility] MkkysgvEXRUTBGOE3380-31-83 03:03:0017.3[facility] WujkiwuMDFDAYMFT0278-92-88 03:03:40952.0[facility] ZkchrqnRQBISXUGW8340-94-26 03:03:03283.0[facility] YdanvjeLYBIBJLVJ1809-91-72 03:03:000.6[facility] NTPLSZYVD1786-51-85 03:03:0012.0[facility] AyyfhgvFPJZNGPRQ9151-05-85 03:03:004.3 [facility] WhxfpcsJLYHFZNFL2172-20-46 03:03:00Negative (02/10/2011 22:03:00) ?? [facility] IcpnycjXQACSVOUCC7289-25-51 03:03:003.9[facility] HermannHEMATOLOGY 2011-02-11 03:03:002.0[facility] NzysuynBXMTJPBTHM6825-95-47 03:03:000.5[facility] XvniffqGMLGNNQXYJ2393-66-22 03:03:000.4[facility] BjxvcinAPACZBFFND6528-48-03 03:03:000.1[facility] MmxlqcmPAAOQKKZGB1205-37-69 03:03:0060.9[facility] OAVXVZIFHG4684-71-40 03:03:0031.7[facility] LswjeuoZSSNDSQTGP9712-17-46 03:03:00 1.2[facility] DaqxxqrNKNYCRSOFJ8300-70-36 03:03:005.7[facility] HermannHEMATOLOGY 2011-02-11 03:03:000.0[facility] KlashkaUPSNJZPFOC0393-81-71 03:03:00 Test Item Value Reference Range Interpretation Comments PT (test code = PT) 13.9 s 12.0-14.7 N [facility] EzrcfgnMVRLQMJLNI5774-09-20 03:03:00 Test Item Value Reference Range Interpretation Comments PTT (test code = PTT) 28.4 s 22.9-35.8 N [facility] ZjwnglgLKTQRMMXEH4450-16-80 03:03:00 Test Item Value Reference Range Interpretation Comments INR (test code = INR) 1.07 1 0.85-1.17 N [facility] CtgpdxyWEFZTATEYN0051-17-76 03:03:0033.7[facility] HermannHEMATOLOGY 2011-02-11 03:03:0014.3[facility] KsccplvKMKICMJDRD0695-61-05 03:03:30580.0 [facility] ZssxeqgUADTBPZHPK5939-44-11 03:03:007.9[facility] HermannHEMATOLOGY 2011-02-11 03:03:0085.9[facility] IvjogarHTOMRQITQT9836-06-61 03:03:004.43[facility] DesdqecNOVPPECAYR2453-82-58 03:03:0038.1[facility] LxncyolHVJSIDTBOG8755-08-02 03:03:0012.8[facility] QumujhlLVEMSORLLT1492-99-45 03:03:00 Test Item Value Reference Range Interpretation Comments MCH (test code = MCH) 28.9 pg 27.0-31.0 N [facility] CwvigrhYBYUITQQMH1936-93-83 03:03:006.5[facility] HermannHEMATOLOGY 2011-02-11 03:03:001.1[facility] HermannBEDSIDE GLUCOSE TDNARUE6070-79-38 16:39:00 175.0[facility] HermannBEDSIDE GLUCOSE QJGTGCZ7470-37-33 12:16:0088.0[facility] HermannBEDSIDE GLUCOSE MVSFARC3043-11-61 11:27:0070.0[facility] HermannCHEMISTRY 2011-01-15 10:45:00<0.6[facility] NgudwpgZMEGFPYIV2961-43-58 10:45:00<0.5 [facility] EeoyhmtJVZSZANEI6267-72-24 10:45:00<0.02[facility] HermannCHEMISTRY 2011-01-15 10:45:0088.0[facility] NviujqqQVDNSJJSA8071-48-67 10:45:000.6[facility] FysjfsfFPZZGTJJD7972-14-47 10:45:003.4[facility] IrvdcsxDHEAXZTRM1131-76-46 10:45:18485.0[facility] NzomullBULYOHPBN7811-13-39 10:45:0013.0[facility] SODDDMKRB3343-13-05 10:45:0025.0[facility] YkdriorWKWATNCNW7682-20-31 10:45:008.0 [facility] NhedxrgUGJGBMKZY3399-52-41 10:45:0018.4[facility] HermannCHEMISTRY 2011-01-15 10:45:25571.0[facility] RwxzvrtAZQGKUQIR7762-42-37 10:45:40347.0 [facility] JrlrbxxGRZXHSVVD6414-95-93 10:45:0096.0[facility] HermannCHEMISTRY 2011-01-15 10:45:00 Test Item Value Reference Range Interpretation Comments CHD Risk (test code = CHD Risk) 3.8 1 3.90-5.80 L [facility] YxusxmnOMRWCVDZI4623-92-41 10:45:0045.0[facility] HermannCHEMISTRY 2011-01-15 10:45:91840.0[facility] CzztrseDCVQZIWSJ4010-04-97 10:45:70573.0 [facility] AfbpipnBXCSMISYC8483-99-64 01:43:00<0.5[facility] HermannCHEMISTRY 2011-01-15 01:43:00<0.6[facility] KetxynrKNEIORKZG6656-12-08 01:43:0083.0 [facility] PxtipgiFTLAOYWGN0683-51-55 01:43:00<0.02[facility] HermannCHEMISTRY 2011-01-14 21:36:00Negative (01/14/2011 16:36:00) ??[facility] HermannCHEMISTRY 2011-01-14 20:36:00<0.6[facility] TnsyxeoLQDISJDKC9333-02-29 20:36:0013.0 [facility] YxysdvbGUYBDFVGQ3274-54-88 20:36:00<3.0[facility] HermannCHEMISTRY 2011-01-14 20:36:000.5[facility] SplisezHGSXPSGRV2614-81-31 20:36:003.8[facility] JvcgeeqGPOLHHSME6801-98-55 20:36:0017.0[facility] RpjizpaEDFSHHUIE4208-96-53 20:36:0071.0[facility] PpxpbzeDKWGEKOWT3582-65-19 20:36:003.8[facility] FITAFHUBN2080-14-56 20:36:58126.0[facility] XrmdriqXBLEQLRBV7213-10-47 20:36:00 22.0[facility] PlahbwvIKXEXIMQM8300-42-35 20:36:0014.8[facility] HermannCHEMISTRY 2011-01-14 20:36:008.6[facility] RsreriaAWIIIILTU3346-74-32 20:36:47276.0[facility] LwlnpgeSIGDGDUEO9937-92-65 20:36:003.6[facility] RacyqzmAPQYRLBMC8618-22-75 20:36:00 Test Item Value Reference Range Interpretation Comments A/G Ratio (test code = A/G Ratio) 1.1 1 0.7-1.6 N [facility] AdyfiwrESLEDZYVU0237-03-72 20:36:00 Test Item Value Reference Range Interpretation Comments B/C Ratio (test code = B/C Ratio) 11.0 1 6-25 N [facility] NfhdscdTNODWAHMD6340-23-80 20:36:007.4[facility] HermannCHEMISTRY 2011-01-14 20:36:28584.0[facility] HnwswefNKELRJIVF0743-05-63 20:36:009.0[facility] OxoxgfdEJPVIHDJI0586-80-82 20:36:000.8[facility] MuqapvlMNFVGPLRM3632-15-41 20:36:00<0.02[facility] MgqipeoAZBAJTNUG4233-82-49 20:36:00<0.5[facility] PqbictzOEGULLHKA9135-47-40 20:36:0078.0[facility] TjrwfzvXXBYFEDJGQ1915-62-43 20:36:000.3[facility] YejothfSZKFIVMVRW0135-12-01 20:36:001.7[facility] RIIACJAAME1344-81-66 20:36:003.5[facility] KqpyyoxWISBGRHXOU9577-32-64 20:36:000.9 [facility] RccivfhOJFEZAECTW9626-92-79 20:36:000.9[facility]annHEMATOLOGY 2011-01-14 20:36:000.0[facility] CcyndpvDZZCXRZMYQ3769-82-22 20:36:000.1[facility] EypjycgVZFUXCQWMZ1511-95-29 20:36:0030.7[facility] QerhlvpHQLWBNOKFV4100-76-97 20:36:0063.0[facility] JeocmgkYYUSVTCDNF6145-65-63 20:36:004.5[facility] SHDZAXQIBD9395-26-19 20:36:0014.6[facility] HmlziehFWHBMEQOXK6614-87-63 20:36:00 34.0[facility] KdgqpykPFTTQEFHCO2877-11-21 20:36:008.0[facility]annHEMATOLOGY 2011-01-14 20:36:46762.0[facility] RidiomgGHYEBSBMYD3726-12-51 20:36:00 Test Item Value Reference Range Interpretation Comments MCH (test code = MCH) 28.8 pg 27.0-31.0 N [facility]BfwobdqQJJNXLPHQQ5387-16-95 20:36:0013.2[facility]annHEMATOLOGY 2011-01-14 20:36:004.6[facility] AahpqzdVZDCWLQAAL5909-48-86 20:36:0038.9[facility] LwwhawvPPTDJYZIPI3013-35-83 20:36:0084.6[facility] MeqkvzeLNUUBZXBVC2973-09-41 20:36:005.6[facility] GblvlcvYOOPTMRUIN8948-53-77 20:36:00 Test Item Value Reference Range Interpretation Comments PT (test code = PT) 13.6 s 12.0-14.[address] [facility] [address] HospitalLvidxtuOMWRSDEYUS0410-53-39 20:36:00 Test Item Value Reference Range Interpretation Comments PTT (test code = PTT) 30.2 s 22.9-35.[address] [facility] [address] [facility] HospitalPtnuekrCTOGEXTVVC1983-05-85 20:36:00 Test Item Value Reference Range Interpretation Comments INR (test code = INR) 1.04 1 0.85-1.17 N [facility] HospitalOnpyldxDTDWBESWJI2065-70-93 20:36:001.5[facility]
[2020-03-17] MEDS ORDERED: KETOROLAC 30 MG/ML INJ ONE (19:27)
[2020-03-17] MEDS ORDERED: ONDANSETRON 4 MG/2 ML VIAL ONE (19:27)
[2020-03-17] MEDS ORDERED: FAMOTIDINE 20 MG/2 ML VIAL IV ONE (19:28)
[2020-03-17] MEDS ORDERED: NA CHLORIDE 0.9% 500 ML ONE (19:28)
[2020-03-17 19:35] LABS: Absolute Lymphocytes (CBC) 2.5 K/uL (0.7-4.9); Basophils % 0.9 % (0-1.3); Hematocrit 32.6 % (36.0-45.0); Lymphocytes % 37.7 % (15.3-44.8); MPV 7.9 fL (7.6-11.3); RBC Red Blood Cell Count 4.05 M/uL (3.86-4.86)
--- NOTE | 2020-03-17 19:49 | RAD REPORT ---
EXAM DESCRIPTION: CT - Head Brain Wo Cont - 03/17/2020 7:41 pm CLINICAL HISTORY: HEADACHE Headache, drowsiness COMPARISON: Head Brain Wo Cont dated 11/15/2019; CT-STROKE BRAIN W/O CONTRAST dated 07/03/2014 TECHNIQUE: All CT scans are performed using dose optimization technique as appropriate and may inclu de automated exposure control or mA/KV adjustment according to patient size. FINDINGS: No intracranial hemorrhage, hydrocephalus or extra-axial fluid collection.No areas of brai n edema or evidence of midline shift. The paranasal sinuses and mastoids are clear. The calvarium is intact. IMPRESSION: No acute intracranial abnormality.
--- NOTE | 2020-03-17 19:49 | RAD REPORT ---
EXAM DESCRIPTION: RAD - Chest Single View - 03/17/2020 7:27 pm CLINICAL HISTORY: COUGH Chest pain. COMPARISON: Chest Single View dated 01/04/2020; Chest Single View dated 11/15/2019; Chest Single View d ated 06/25/2019; Chest Pa And Lat (2 Views) dated 05/10/2019 FINDINGS: Portable technique limits examination quality. The lungs are grossly clear. The heart is normal in size. No displaced fractures. IMPRESSION: No acute intrathoracic process suspected.
--- NOTE | 2020-03-17 19:50 | RAD REPORT ---
EXAM DESCRIPTION: RAD - C Spine Ap/Lat - 03/17/2020 7:29 pm CLINICAL HISTORY: Pain;Radiculopathy COMPARISON: No comparisons FINDINGS: Cervical bodies are normal in height and alignment.No fracture or acute bony process seen. Mild disc thinning is present lower cervical levels with small endplate osteophytes. No prevertebral soft tissue thickening or other suspicious soft tissue finding. Small rudimentary cervical ribs. IMPRESSION: Mild lower cervical degenerative spondylosis.
[2020-03-17 19:51] LABS: ALT/SGPT 19 U/L (12-78); AST/SGOT 14 U/L (15-37); Albumin 3.8 g/dL (3.4-5.0); Alkaline Phosphatase 150 U/L (45-117); BUN Blood Urea Nitrogen 35 mg/dL (7-18); Bicarbonate 29 mmol/L (21-32); Bilirubin Direct < 0.1 mg/dL (0-0.2); Bilirubin Total 0.2 mg/dL (0.2-1.0); Glucose Level 176 mg/dL (74-106); Lipase 272 U/L (73-393); Magnesium 2.7 mg/dL (1.8-2.4); NT PRO-BNP 28 pg/mL (<125); Potassium 4.2 mmol/L (3.5-5.1); Protein, Total 8.6 g/dL (6.4-8.2); Sodium Level 137 mmol/L (136-145); Troponin (Emerg Dept Use Only) < 0.02 ng/mL (0.0-0.045)
--- NOTE | 2020-03-17 20:57 | ER ---
Nurse's Notes [facility] Name: Melissa De Oliveira Age: 54 yrs Sex: Female : 1965 Arrival Date: 03/17/2020 Time: 15:57 Bed 30 Private MD: Diagnosis: Strain of muscle, fascia and tendon at neck level Presentation: 03/17 15:59 Chief complaint: Patient states: headache, intermittent dizziness, pain to L side of ss neck and sweating after eating and/or drinking x 4 days. Coronavirus screen: Client denies travel out of the [place] in the last 14 days. Ebola Screen: Patient denies exposure to infectious person. Patient denies travel to an Ebola-affected area in the 21 days before illness onset. Initial Sepsis Screen: Does the patient meet any 2 criteria? No. Patient's initial sepsis screen is negative. Does the patient have a suspected source of infection? No. Patient's initial sepsis screen is negative. Risk Assessment: Do you want to hurt yourself or someone else? Patient reports no desire to harm self or others. Onset of symptoms was March 13, 2020. 15:59 Method Of Arrival: Ambulatory 15:59 Acuity: DEYA 3 ss Historical: - Allergies: 16:01 Codeine; ss 16:01 Tramadol HCl; ss 16:01 Ritalin; ss - Home Meds: 16:01 Levemir 100 unit/mL subcutaneous soln [Active]; gabapentin Oral [Active]; ss - PMHx: 16:01 Diabetes - IDDM; neuropathy; ss - PSHx: 16:01 ; partial hysterectomy; Appendectomy; Cholecystectomy; ss - Immunization history:: Adult Immunizations up to date. - Social history:: Smoking status: Patient denies any tobacco usage or history of. Screenin:31 Abuse screen: Denies threats or abuse. Denies injuries from another. Nutritional iw screening: No deficits noted. Tuberculosis screening: No symptoms or risk factors identified. Fall Risk None identified. Assessment: 18:29 General: Behavior is calm, appropriate for age. Pain: Complains of pain in left iw sternocleidomastoid and left side of neck Pain currently is 7 out of 10 on a pain scale. Neuro: Level of Consciousness is awake, alert, obeys commands, Oriented to person, place, time, situation, Moves all extremities. Full function. Cardiovascular: Capillary refill < 3 seconds in bilateral fingers Patient's skin is warm and dry. Respiratory: Respiratory effort is even, unlabored, Respiratory pattern is regular, symmetrical. GI: Abdomen is non-distended. Derm: Skin is intact, is fragile, is thin. Musculoskeletal: Range of motion: intact in all extremities. Vital Signs: 15:59 BP 151 / 83; Pulse 77; Resp 15; Temp 97.9(TE); Pulse Ox 99% on R/A; Weight 48.99 kg; ss Height 5 ft. 4 in. (162.56 cm); Pain 7/10; 15:59 Body Mass Index 18.54 (48.99 kg, 162.56 cm) ED Course: 15:57 Patient arrived in ED. ss 16:00 Triage completed. ss 16:01 Arm band placed on right wrist. ss 18:15 Jyothi Chandra, RN is Primary Nurse. iw 18:31 Yogesh Jimenez MD is Attending Physician. thomas 18:45 Patient has correct armband on for positive identification. Bed in low position. Call sg light in reach. Side rails up X2. Pulse ox on. NIBP on. Warm blanket given. Head of bed elevated. 19:27 XRAY Chest (1 view) In Process Unspecified. EDMS 19:27 C Spine Ap/Lat XRAY In Process Unspecified. EDMS 19:30 Primary Nurse role handed off by Jyothi Chandra, RN [email or web address] 19:41 CT Head Brain wo Cont In Process Unspecified. EDMS 20:37 Dl Joseph, RN is Primary Nurse. sg 20:43 US Carotid Artery Bilateral In Process Unspecified. EDMS 21:00 No provider procedures requiring assistance completed. sg 21:00 IV discontinued, intact, bleeding controlled, No redness/swelling at site. Pressure sg dressing applied. Administered Medications: 19:18 Drug: Pepcid 20 mg Route: IVP; Site: right wrist; sg 19:18 Drug: Zofran (Ondansetron) 4 mg Route: IVP; Site: right wrist; sg 19:20 Drug: NS 0.9% 500 ml Route: IV; Rate: bolus; Site: right wrist; sg 19:20 Drug: TORadol 30 mg Route: IVP; Site: right wrist; sg 21:00 Drug: Flexeril 10 mg Route: PO; sg Outcome: 20:55 Discharge ordered by . lester 21:00 Discharged to home ambulatory, with friend. sg 21:00 Condition: good 21:00 Discharge instructions given to patient, family, Instructed on discharge instructions, follow up and referral plans. safety practices, Demonstrated understanding of instructions, follow-up care, medications, Prescriptions given X 4. 21:04 Patient left the ED. sg Signatures: Dispatcher [employer] EDMilvia Del Toro, DRILL RUNNER-C DRILL RUNNER-Dl [place], RN Yogesh Sanders MD MD cha Williams, Irene, RN RN iw Smirch, Shelby, RN RN ss [place], MyKena mw2
--- NOTE | 2020-03-17 20:57 | EDPHYS ---
Physician Documentation [facility] Name: Melissa De Oliveira Age: 54 yrs Sex: Female : 1965 Arrival Date: 03/17/2020 Time: 15:57 Bed 30 Private MD: KRISTA Physician Yogesh Jimenez HPI: 03/17 19:01 This 54 yrs old Female presents to ER via Ambulatory with complaints of Neck thomas Pain, >24Hrs Old, Headache. 19:01 The patient or guardian complains of pain, that is acute. The symptoms are located on thomas the left side of neck and left sternocleidomastoid. Onset: The symptoms/episode began/occurred 3 day(s) ago. Context: The problem was sustained at an unknown location. Associated signs and symptoms: The patient has no apparent associated signs or symptoms. The pain does not radiate. Historical: - Allergies: 16:01 Codeine; ss 16:01 Tramadol HCl; ss 16:01 Ritalin; ss - Home Meds: 16:01 Levemir 100 unit/mL subcutaneous soln [Active]; gabapentin Oral [Active]; ss - PMHx: 16:01 Diabetes - IDDM; neuropathy; ss - PSHx: 16:01 ; partial hysterectomy; Appendectomy; Cholecystectomy; ss - Immunization history:: Adult Immunizations up to date. - Social history:: Smoking status: Patient denies any tobacco usage or history of. ROS: 19:01 Constitutional: Negative for fever, chills, and weight loss, Eyes: Negative for injury, thomas pain, redness, and discharge, ENT: Negative for injury, pain, and discharge, Cardiovascular: Negative for chest pain, palpitations, and edema, Respiratory: Negative for shortness of breath, cough, wheezing, and pleuritic chest pain, Abdomen/GI: Negative for abdominal pain, nausea, vomiting, diarrhea, and constipation, Back: Negative for injury and pain, : Negative for injury, bleeding, discharge, and swelling, MS/Extremity: Negative for injury and deformity, Skin: Negative for injury, rash, and discoloration, Neuro: Negative for headache, weakness, numbness, tingling, and seizure, Psych: Negative for depression, anxiety, suicide ideation, homicidal ideation, and hallucinations, Allergy/Immunology: Negative for hives, rash, and allergies, Endocrine: Negative for neck swelling, polydipsia, polyuria, polyphagia, and marked weight changes, Hematologic/Lymphatic: Negative for swollen nodes, abnormal bleeding, and unusual bruising. 19:01 Neck: Positive for pain at rest, of the left side of neck. Exam: 19:01 Constitutional: This is a well developed, well nourished patient who is awake, alert, thomas and in no acute distress. Head/Face: Normocephalic, atraumatic. Eyes: Pupils equal round and reactive to light, extra-ocular motions intact. Lids and lashes normal. Conjunctiva and sclera are non-icteric and not injected. Cornea within normal limits. Periorbital areas with no swelling, redness, or edema. Neck: Trachea midline, no thyromegaly or masses palpated, and no cervical lymphadenopathy. Supple, full range of motion without nuchal rigidity, or vertebral point tenderness. No Meningismus. Chest/axilla: Normal chest wall appearance and motion. Nontender with no deformity. No lesions are appreciated. Cardiovascular: Regular rate and rhythm with a normal S1 and S2. No gallops, murmurs, or rubs. Normal PMI, no JVD. No pulse deficits. Respiratory: Lungs have equal breath sounds bilaterally, clear to auscultation and percussion. No rales, rhonchi or wheezes noted. No increased work of breathing, no retractions or nasal flaring. Abdomen/GI: Soft, non-tender, with normal bowel sounds. No distension or tympany. No guarding or rebound. No evidence of tenderness throughout. Back: No spinal tenderness. No costovertebral tenderness. Full range of motion. Skin: Warm, dry with normal turgor. Normal color with no rashes, no lesions, and no evidence of cellulitis. MS/ Extremity: Pulses equal, no cyanosis. Neurovascular intact. Full, normal range of motion. Neuro: Awake and alert, GCS 15, oriented to person, place, time, and situation. Cranial nerves II-XII grossly intact. Motor strength 5/5 in all extremities. Sensory grossly intact. Cerebellar exam normal. Normal gait. Psych: Awake, alert, with orientation to person, place and time. Behavior, mood, and affect are within normal limits. 19:01 Neck: External neck: is normal, no acute changes, C-spine: appears grossly normal, no acute changes, Thyroid: appears normal, no acute changes, Trachea: is midline with no obvious abnormalities, no acute changes, ROM/movement: is normal, no acute changes, Lymph nodes: no appreciated lymphadenopathy. Vital Signs: 15:59 BP 151 / 83; Pulse 77; Resp 15; Temp 97.9(TE); Pulse Ox 99% on R/A; Weight 48.99 kg; ss Height 5 ft. 4 in. (162.56 cm); Pain 7/10; 15:59 Body Mass Index 18.54 (48.99 kg, 162.56 cm) ss MDM: 18:32 Patient medically screened. thomas 19:06 Differential diagnosis: Cervical Raiculopathy Nonspecific abd pain, pancreatitis, viral thomas gastroenteritis, gastroenteritis, cervical strain, Neck Contusion. Data reviewed: vital signs, nurses notes, lab test result(s), EKG, radiologic studies, doppler, plain films. Data interpreted: cfo: rate is 77 beats/min, rhythm is regular. Test interpretation: by ED physician or midlevel provider: ECG, plain radiologic studies. 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 03/17 19:00 Order name: Basic Metabolic Panel; Complete Time: 20:45 [facility] 03/17 19:00 Order name: CBC with Diff; Complete Time: 19:37 [facility] 03/17 19:00 Order name: LFT's; Complete Time: 20:45 [facility] 03/17 19:00 Order name: Magnesium; Complete Time: 20:45 [facility] 03/17 19:00 Order name: NT PRO-BNP; Complete Time: 20:45 [facility] 03/17 19:00 Order name: Troponin (emerg Dept Use Only); Complete Time: 20:45 [facility] 03/17 19:00 Order name: XRAY Chest (1 view); Complete Time: 20:45 [facility] 03/17 19:00 Order name: US Carotid Artery Bilateral [facility] 03/17 19:00 Order name: Lipase; Complete Time: 20:45 [facility] 03/17 19:11 Order name: C Spine Ap/Lat XRAY; Complete Time: 20:45 [facility] 03/17 19:30 Order name: CT Head Brain wo Cont; Complete Time: 20:45 [facility] 03/17 19:00 Order name: EKG; Complete Time: 19: [facility] 03/17 19:00 Order name: Cardiac monitoring; Complete Time: : [facility] 03/17 19:00 Order name: IV Saline Lock; Complete Time: 19: [facility] 03/17 19:00 Order name: Labs collected and sent; Complete Time: : [facility] 03/17 19:00 Order name: O2 Per Protocol; Complete Time: : [facility] 03/17 19:00 Order name: O2 Sat Monitoring; Complete Time: : [facility] Administered Medications: 19:18 Drug: Pepcid 20 mg Route: IVP; Site: right wrist; sg 19:18 Drug: Zofran (Ondansetron) 4 mg Route: IVP; Site: right wrist; sg 19:20 Drug: NS 0.9% 500 ml Route: IV; Rate: bolus; Site: right wrist; sg 19:20 Drug: TORadol 30 mg Route: IVP; Site: right wrist; sg 21:00 Drug: Flexeril 10 mg Route: PO; sg Disposition: 03/17/20 20:55 Discharged to Home. Impression: Strain of muscle, fascia and tendon at neck level. - Condition is Stable. - Discharge Instructions: Type 2 Diabetes Mellitus, Diagnosis, Adult, Muscle Strain, Type 2 Diabetes Mellitus, Diagnosis, Adult, [id number]. - Prescriptions for Pepcid 20 mg Oral Tablet - take 1 tablet by ORAL route every 12 hours for 10 days; 20 tablet. Motrin IB 200 mg Oral Tablet - take 2 tablet by ORAL route every 6 hours As needed as needed with food; 20 tablet. Cyclobenzaprine 5 mg Oral Tablet - take 1 tablet by ORAL route 3 times per day As needed; 15 tablet. Zofran 4 mg Oral Tablet - take 1 tablet by ORAL route every 12 hours As needed; 20 tablet. - Medication Reconciliation Form, Thank You Letter, Antibiotic Education, Prescription Opioid Use form. - Follow up: Private Physician; When: 2 - 3 days; Reason: Recheck today's complaints, Continuance of care, Re-evaluation by your physician. - Problem is new. - Symptoms have improved. Signatures: Dispatcher [employer] EDMilvia Del Toro, SECURITY SERVICES SPECIALIST-C SECURITY SERVICES SPECIALIST-Ckb Dl Joseph, RN RN Yogesh Reyes MD MD cha Waters, Shelly, SECURITY SERVICES SPECIALIST-C SECURITY SERVICES SPECIALIST-CsnAnat Gilbert, RN RN ss Corrections: (The following items were deleted from the chart) 21:04 20:55 03/17/2020 20:55 Discharged to Home. Impression: Strain of muscle, fascia and sg tendon at neck level. Condition is Stable. Discharge Instructions: Type 2 Diabetes Mellitus, Diagnosis, Adult, Muscle Strain, Type 2 Diabetes Mellitus, Diagnosis, Adult, [id number]. Prescriptions for Pepcid 20 mg Oral Tablet - take 1 tablet by ORAL route every 12 hours for 10 days; 20 tablet, Motrin IB 200 mg Oral Tablet - take 2 tablet by ORAL route every 6 hours As needed as needed with food; 20 tablet, Cyclobenzaprine 5 mg Oral Tablet - take 1 tablet by ORAL route 3 times per day As needed; 15 tablet, Zofran 4 mg Oral Tablet - take 1 tablet by ORAL route every 12 hours As needed; 20 tablet. and Forms are Medication Reconciliation Form, Thank You Letter, Antibiotic Education, Prescription Opioid Use. Follow up: Private Physician; When: 2 - 3 days; Reason: Recheck today's complaints, Continuance of care, Re-evaluation by your physician. Problem is new. Symptoms have improved. kb
--- NOTE | 2020-03-17 21:10 | RAD REPORT ---
EXAM DESCRIPTION: US - CP - 03/17/2020 8:42 pm CLINICAL HISTORY: Dizziness;Pain COMPARISON: CAROTID ARTERY BILATERAL dated 07/03/2014 TECHNIQUE: Real-time sonographic evaluation of both carotid systems was performed. Doppler interroga tion was performed with waveform tracing bilaterally. FINDINGS: Normal high resistance waveforms are noted in both external carotid arteries. The common c arotid arteries and internal carotid arteries show normal low resistance waveforms. Small amount of soft plaque is seen in the left carotid bulb. Peak systolic and end diastolic velocit y values and the ICA/CCA ratios are in the non-hemodynamically significant range. Antegrade flow seen in both vertebral arteries. IMPRESSION: Small amount of soft plaque is seen in the left carotid bulb. No evidence of a hemodynamically significant stenosis.
[2020-03-17] MEDS ORDERED: CYCLOBENZAPRINE 10 MG TAB ONE (21:14)
[2020-03-22 20:53] VITALS: BP 151/83; TEMP 97.9; O2SAT 99
== END 2020-03-17 21:04 | disposition home or self-care (01) ==
LOC: ER 15:40
DX: S16.1XXA Strain of muscle, fascia and tendon at neck level, initial encounter (principal); R51.9 Headache, unspecified; E11.40 Type 2 diabetes mellitus with diabetic neuropathy, unspecified; Z79.4 Long term (current) use of insulin; Z88.5 Allergy status to narcotic agent; Z88.8 Allergy status to other drugs, medicaments and biological substances
CPT/HCPCS: 85025; 80048; 36415; 83735; 80076; 84484; 83690; 83880; 70450; 71045; 72040; 93880; 96375; 96374; 99284; J7040; J2405

== ENCOUNTER 2020-04-23 18:22 | Emergency (ER) | payer OTHER, SELFPAY ==
--- OUTSIDE RECORDS SUMMARY | 2020-04-23 18:24 | XMS REPORT | Clinical Summary ---
:1965 Author Organization [facility] Address [address] [place] [address] Care Team Providers Name Role Phone Denae [...] VACCINE (#1) 2019 Results Not on fileafter 04/23/2019
--- OUTSIDE RECORDS SUMMARY | 2020-04-23 18:31 | XMS REPORT | Continuity of Care Document ---
:1965 Author Organization [facility] Share Your Brain Information Bernard Care Team Providers Name Role Phone [email or web address] Unavailable Un available Problems Problem Status Onset Classification Date Comments Sourc e Date Reported Radiculopathy, 02/26/20 02/28/2017 [facility] cervical region 17 Hosp [facility] Hyperglycemia, 02/26/20 03/01/2017 [facility] unspecified 17 Hospital Fever, 02/26/20 03/01/2017 [facility] unspecified 17 Hospital Displaced 12/28/19 12/30/2016 [facility] unspecified 17 [facility] fracture of right lesser toe(s), initial encounter for closed fracture HURT TOES Active 12/28/[address] ABDOMINAL PAIN Active 02/07/20 [address] [place] EGD Active 02/05/20 [facility] [place] 12 BLOOD SUGAR Active 11/28/19 [place] PROBLEM [...] [address] [place] BLEEDING ABD PAIN Active 01/06/20 [facility] [place] 10 EAR PAIN Active 10/10/19 [facility] [place] UPPER ABDOMINAL Active 09/21/19 [facility] PAIN 10 [place] ABD PAIN, HIGH Active 08/16/19 [facility] SUGAR 10 [place] Abdominal pain Active Problem 02/19/2012 [facility], [place] Cellulitis Active Problem 02/19/2012 [facility] [place] Chest pain Active Problem 02/19/2012 [facility], [place] Hyperglycemia Active Problem 02/19/2012 [facility], [place] UTI - Urinary Active Problem 02/19/2012 tract infection [facility] [place] Diabetes mellitus Active Problem 03/01/2017 [facility] [place] (disorder[facility] Restless legs Active Problem 03/01/2017 [...] G.I. No Longer Cocktail = Active 2016 [place] antacid with Hospital simethicone 22.5 mL - lidocaine viscous 7.5 mL Zofran Notes: (Same Inactive as: Zofran) 2016 [place] MEDICATION Hospital WASTE Product Size: 4 mg Product Wasted: ___ mg Zofran Notes: (Same Inactive as: Zofran) 2016 [place] MEDICATION Hospital WASTE Product Size: 4 mg Product Wasted: ___ mg Morphine Notes: (Same Inactive as:MORPhine 2017 [place] Sulfate) Hospital Lidocaine Notes: Inactive Hydrochloride 10 Preservative 2016 [facility] MG/ML Injectable free. (Same Ho spital Solution as: Xylocaine MPF) Insulin regular 60 units) Inactive WASTE: F/P - 2017 [place] Black; E - Hospital Municipal Trash Bin Stable for 28 days at room temperature Expires in days from Date Sodium Chloride 2,000 mL, 1000 Inactive 0.9% (Bolus) IV ml/hr, Infuse 2016 [facility] Over: 2 hr, Hospital Route: IV, 2,000, Drug form: INJ, ONCE, Priority: STAT, Dosing Weight 49.545 kg, Start date: 02/25/17 20:22:00 AMBULATORY NURSE, Stop date: 02/25/17 20:22:00 AMBULATORY NURSE ibuprofen 800 mg 800 mg = 1 [...] (Same No Longer as: Valium) Active 2016 [facility] Ketorolac 4 days No Longer MEDICATION Active 2016 [place] WASTE Hospital Product Size: 30 mg Product Wasted: ___ mg Ciprofloxacin 500 500 mg = 1 Active MH [facility] Oral Tablet tab, PO, Q12H, 2017 [facility] [Cipro] for UTI, X 3 Hospital day, # 6 tab, 0 Refill(s), Pharmacy: [facility]/pharmacy #[id number] Humalog 100 4 unit, SUB-Q, Active units/mL TID-Before 2017 [place] Meals, hold Hospital insulin injection if your blood sugar is less than 140 mg/dL., # 10 mL, 0 Refill(s), Pharmacy: [facility]/pharmacy #[id number] pantoprazole 40 40 mg = 1 tab, Active 01/26/ H [facility] Enteric Coated PO, Daily, # 2017 [facility] Tablet [Protonix] 30 tab, 0 Hosp ital Refill(s), Pharmacy: [facility]/pharmacy #[id number] Calcium Carbonate 500 mg = 1 Active 500 MG Chewable tab, PO, TID, 2017 [facility] Tablet # 6 tab, 0 Hospital Refill(s), Pharmacy: [facility]/pharmacy #[id number] Insulin Glargine 15 unit, Active 100 UNT/ML SUB-Q, Daily, 2016 [place] Injectable # 10 mL, 0 Hospital Solution [Lantus] Refill(s), Pharmacy: [facility]/pharmacy #[id number] Calcium Gluconate Notes: WASTE: Inactive F/P - Sink; E 2016 [place] [facility] Hospital Trash Bin Calcium Carbonate Notes: (Same Inactive As: [facility]) 2017 [place] Calcium Hospital Carbonate 500 mg = 200 mg elemental calcium Dose = mg calcium carbonate ( mg elemental calcium) Insulin Glargine Notes: Same as No Longer 100 UNT/ML Lantus Active 2016 [place] Injectable Solostar PEN Hospital Solution [Lantus] Do not hold insulin without contacting prescriber "single patient use only" WASTE: F/P - Black; E - Municipal Trash Bin Stable for 28 days at room temperature. Expires in days from Date Requip Notes: (Same No Longer as: Requip) Active 2017 [place] [facility] Lyrica Notes: (Same No Longer as: Lyrica) Active 2017 [facility] Calcium Carbonate Notes: (Same Inactive As: Tums) 2017 [place] Calcium Hospital Carbonate 500 mg = 200 mg elemental calcium Dose = mg calcium carbonate ( mg elemental calcium) Protonix Notes: Tablet No Longer should not be Active 2017 [place] chewed or Hospital crushed. (Same as: Protonix) Magnesium Oxide Notes: (Same No Longer H as: Mag-Ox Active 2017 [place] 400) Magnesium Hospital oxide [id number] elemental magnesium Dose=____mg magnesium oxide (___mg elemental magnesium) Ketorolac 4 days No Longer MEDICATION Active 2017 [place] WASTE Hospital Product Size: 30 mg Product Wasted: ___ mg Docusate Notes: (Same No Longer as: Colace) Active 2016 [place] (Do Not Crush) [facility] Insulin Glargine 50 units, No Longer 100 UNT/ML SUB-Q, Daily, Active 2016 [place] Injectable 0 Refill(s) [facility] Solution [Lantus] ropinirole 2 MG 2 mg = 1 tab, Active Oral Tablet PO, Bedtime, 0 2016 [facility] [facility] [Requip] Refill(s) [facility] pregabalin 75 MG 75 mg = 1 cap, Active Oral Capsule PO, Bedtime, 0 2016 [facility] [Lyrica] Refill(s) [facility] Insulin Lispro 60 units) Inactive WASTE: F/P - 2017 [place] Black; E - Hospital Municipal Trash Bin Stable for 28 days at room temperature. Expires in days from Date Ceftriaxone Notes: (Same No Longer As: Rocephin). Active 2017 [place] Use with 100 Hospital mL NS and infuse over 30 min MEDICATION WASTE Product Size: 1000 mg Product Wasted: ___ mg Hydralazine Notes: (Same No Longer as: Active 2016 [place] Apresoline) [facility] Push over 5 minutes Glucagon 1 mg, Route: No Longer IM, Drug form: Active 2016 [place] PDR/INJ, PRN, Hospital Dosing Weight 51.449, kg, PRN Blood Glucose Results, Start date: 01/25/17 1:35:00 CDT, Duration: 30 day, Stop date: 02/24/17 0:34:00 AMBULATORY NURSE Insulin Lispro 60 units) No Longer WASTE: F/P - Active 2016 [place] Black; E - Hospital Municipal Trash Bin Stable for 28 days at room temperature. Expires in days from Date Dextrose 50% 25 gm, 50 mL, No Longer Syringe Route: IVP, Active 2016 [place] Drug Form: Hospital INJ, Dosing Weight 51.449, kg, PRN, PRN Blood Glucose Results, Start date: 01/25/17 1:35:00 CDT, Duration: 30 day, Stop date: 02/24/17 0:34:00 AMBULATORY NURSE Acetaminophen Notes: Do not No Longer exceed 4 Active 2017 [place] gm/day. (Same Hospital as: Tylenol) Acetaminophen 325 Notes: (Same Inactive MG / Hydrocodone as: Chamberino 2017 [facility] [facility] Bitartrate 5 MG 325/5) Do not H ospital Oral Tablet exceed 4gm/day of acetaminophen. Ondansetron Notes: (Same No Longer as: Zofran) Active 2017 [place] MEDICATION Hospital WASTE Product Size: 4 mg Product Wasted: ___ mg sodium chloride 1,000 mL, No Longer 0.9% 1000 ml INJ Rate: 75 Active 2017 [place] [facility] 1,000 mL ml/hr, Infuse Hospital over: 13.3 hr, Route: IV, Dosing Weight 51.449 kg, Total Volume: 1,000, Start date: 01/25/17 1:32:00 CDT, Stop date: 02/24/17 1:31:00 AMBULATORY NURSE Saline Flush 0.9% Notes: (Same No Longer as: BD Active 2016 [place] Posiflush) Hospital Ketorolac 15 mg, Route: Inactive IV, ONCE, 2016 [place] Dosing Weight Hospital 52.273, kg, Start date: 01/25/17 0:00:00 CDT, Stop date: 01/25/17 0:00:00 CDT Famotidine 20 mg, Route: Inactive IVP, ONCE, 2016 [place] Dosing Weight Hospital 52.273, kg, Priority: STAT, [...] 4 mg, Route: Inactive IVP, Drug 2017 [place] form: INJ, Hospital ONCE, Dosing Weight 52.273, kg, Priority: STAT, Start date: 01/24/17 22:07:00 CDT, Stop date: 01/24/17 22:07:00 CDT Morphine Notes: (Same Inactive as:MORPhine 2017 [place] Sulfate) Hospital Acetaminophen 300 1 - 2 tab, PO, No Longer 12/27 MG / Codeine Q4H, PRN Pain, Active 2016 [facility] Phosphate 30 MG X 2 day, # 30 Ho spital Oral Tablet tab, 0 [Tylenol with Refill(s) Codeine #3] Acetaminophen 325 Notes: (Same Inactive MG / Hydrocodone as: Chamberino 2017 [facility] [facility] Bitartrate 5 MG 325/5) Do not H ospital Oral Tablet exceed 4gm/day [Chamberino 5/325] of acetaminophen. Sodium Chloride 500 mL, Rate: IV No Longer [facility] Sugar 0.9% (Bolus) IV 500 ml/hr, Active 2011 [facility] 500 mL Infuse over: 1 hr, [...] ketorolac 30 mg, Route: IVP No Longer [facility] Sug ar IVP, Drug Active 2011 [place] form: INJ, ONCE, Dosing Weight 50, kg, Priority: STAT, Start date: 11/28/11 21:51:00, Stop date: 11/28/11 21:51:00 ondansetron 4 mg, Route: IVP No Longer [facility] Hein gar IVP, ONCE, Active 2011 [facility] Dosing Weight 50, kg, Priority: STAT, Start date: 11/28/11 21:51:00, Stop date: 11/28/11 21:51:00 Sodium Chloride 1,000 mL, IVPB No Longer [facility] S ugar 0.9% (Bolus) IV Rate: 1,000 Active 2011 [facility] 1,000 mL ml/hr, Infuse over: 1 hr, Route: IVPB, kg, Total Volume: 1,000, Bolus Dose, Priority: STAT, Start date: 11/28/11 21:51:00, Duration: 1 doses or times, Stop date: 11/28/11 22:50:00 Saline Flush 0.9% 5 ml, Route: IVP No Longer [facility] Sugar IVP, Drug Active 2011 [place] Form: INJ, kg, PRN, PRN Line Flush, Start date: 11/28/11 21:51:00, Duration: 30 day, Stop date: 12/28/11 21:50:00 Chamberino 5/325 oral 1-2 tab, PO, PO Active [facility] Sugar tablet Q4-6H, PRN, 2011 tab, Pain, Substitution Allowed, Soft Stop Zofran ODT 4 mg 4 mg, 1 tab, PO Active [facility] Sugar oral tablet, PO, TID, PRN, 2011 disintegrating 10 tab, Nausea and Vomiting, Substitution Allowed morphine Sulfate 4 mg, 2 mL, IVP No Longer [facility] Route: IVP, Active 2011 [facility] Drug form: INJ, ONCE, Priority: STAT, Start date: 10/25/11 0:22:00, Stop date: 10/25/11 0:22:00 diphenhydrAMINE 25 mg, Route: IVP No Longer [place] [facility] IVP, ONCE, Active 2011 Priority: STAT, Start date: 10/25/11 0:06:00, Stop date: 10/25/11 0:06:00 morphine Sulfate 4 mg, 2 mL, IVP No Longer Ye[place] 10/24/ M H [facility] Route: IVP, Active 2011 Drug form: INJ, [...] Longer [place] Sugar IVP, Drug Active 2011 [facility] Form: INJ, PRN, PRN Line Flush, [...] regular 5 unit, 0.05 IVP No Longer [facility] Sugar mL, Route: Active 2011 [facility] IVP, Drug form: SOLN, ONCE, Priority: STAT, Start date: 05/23/11 1:10:00, Stop date: 05/23/11 1:10:00 Visipaque 32,000 mg, 100 IV Active [facility] Suga r mL, Route: IV, 2011 [facility] Drug form: INJ, ONCE, Start date: 05/22/11 23:47:00, Stop date: 05/22/11 23:47:00 Insulin regular 5 unit, 0.05 SUB-Q No Longer [facility] Sugar mL, Route: Active 2011 [facility] SUB-Q, Drug form: SOLN, ONCE, Priority: STAT, Start date: 05/22/11 23:36:00, Stop date: 05/22/11 23:36:00 morphine Sulfate 2 mg, 0.4 mL, IVP No Longer [facility] Sugar Route: IVP, Active 2011 [facility] Drug form: INJ, ONCE, Priority: STAT, Start date: 05/22/11 23:04:00, Stop date: 05/22/11 23:04:00 ondansetron 4 mg, 2 mL, IVP No Longer [facility] Sug ar Route: IVP, Active 2011 [facility] Drug form: INJ, ONCE, Priority: STAT, Start date: 05/22/11 23:04:00, Stop date: 05/22/11 23:04:00 Sodium Chloride 500 mL, Rate: IV No Longer [facility] Sugar 0.9% (Bolus) IV 1,000 ml/hr, Active 2011 [facility] 500 mL Infuse over: 0.5 hr, Route: IV, Total Volume: 500, Bolus dose, Priority: STAT, Start date: 05/22/11 23:04:00, Duration: 1 doses or times, Stop date: 05/22/11 23:33:00 Saline Flush 0.9% 5 ml, Route: IVP No Longer [facility] Sugar IVP, Drug Active 2011 [facility] Form: INJ, PRN, PRN Line Flush, Start date: 05/22/11 23:04:00, Duration: 24 hr, Stop date: 05/23/11 23:03:00 Pyridium 200 mg 200 mg, 1 tab, PO Active [facility] Sugar oral tablet PO, TID, 9 2011 [facility] tab, Substitution Allowed Cipro 500 mg oral 500 mg, 1 tab, PO Active [facility] Sugar tablet PO, Q12H, 28 2011 [facility] tab, Substitution Allowed, TAB Pyridium 200 mg, 2 tab, PO No Longer [facility] Sug ar Route: PO, Active 2011 [facility] Drug form: TAB, ONCE, Priority: STAT, Start date: 05/07/11 20:03:00, Stop date: 05/07/11 20:03:00 Cipro 500 mg, 2 tab, PO No Longer [facility] Suga r Route: PO, Active 2011 [facility] Drug form: TAB, ONCE, Priority: STAT, Start date: 05/07/11 20:03:00, Stop date: 05/07/11 20:03:00 Cipro 500 mg oral 500 mg, 1 tab, PO Active [facility] Sugar tablet PO, BID, 20 2011 [facility] tab, Substitution Allowed Zofran ODT 4 mg 4 mg, 1 tab, PO Active [facility] oral tablet, PO, TID, PRN, 2011 disintegrating 10 tab, Nausea and Vomiting, Substitution Allowed Chamberino 10/325 oral 1 tab, PO, PO Active [facility] Sugar tablet Q4-6H, PRN, 24 2011 [facility] tab, as needed for pain, Substitution Allowed, Maintenance hydromorphone 1 mg, 0.5 mL, IVP No Longer [facility] Route: IVP, Active 2011 [facility] Drug form: INJ, ONCE, Priority: STAT, Start date: 04/19/11 23:38:00, Stop date: 04/19/11 23:38:00 Insulin regular 10 unit, 0.1 IVP No Longer [facility] H [facility] mL, Route: Active 2011 [facility] IVP, Drug form: SOLN, ONCE, Priority: [...] magnesium citrate 150 ml, PO, PO Active [place] 03/26[facility] Sugar 8.85% oral liquid ONCE, 300 ml, 2010 [place] Substitution Allowed, Maintenance, LIQ MiraLax oral 17 gm, PO, PO Active [place] 03/26[facility] Sugar powder for Daily, 255 gm, 2010 [place] reconstitution Substitution Allowed, PDR/REC Phenergan 25 mg 25 mg, 1 tab, PO Active [place] 03/26[facility] Sugar oral tablet PO, Q6H, PRN, 2010 [place] 15 tab, Nausea, Substitution Allowed Vicodin 5/500 1 tab, PO, PO Active [place] 03/26[facility] Suga r oral tablet Q4-6H, PRN, 2010 tab, for Pain, Substitution Allowed, Maintenance Sodium Chloride 1,000 mL, IV No Longer [place] S ugar 0.9% (Bolus) IV Rate: 1,000 Active 2010 1,000 mL ml/hr, Infuse over: 1 hr, Route: IV, Total Volume: 1,000, Bolus Dose, Priority: STAT, Start date: 03/25/11 21:24:00, Duration: 1 doses or times, Stop date: 03/25/11 22:23:00 Insulin regular 10 unit, 0.1 IVP No Longer [place] 03/26/ H [facility] mL, Route: Active 2010 IVP, Drug form: SOLN, ONCE, Priority: STAT, Start date: 03/25/11 21:16:00, Stop date: 03/25/11 21:16:00 Omnipaque 300 30,000 mg, 100 IV Active [place] mL, Route: IV, 2010 Drug form: SOLN, ONCE, Start date: 03/25/11 21:15:00, Stop date: 03/25/11 21:15:00 Saline Flush 0.9% 5 ml, Route: IVP No Longer [place] Sugar IVP, Drug Active 2010 Form: INJ, PRN, PRN Line Flush, Start date: 03/25/11 20:19:00, Duration: 30 day, Stop date: 04/24/11 20:18:00 ondansetron 4 mg, 2 mL, IVP No Longer [place] Sug ar Route: IVP, Active 2010 Drug form: INJ, ONCE, Priority: STAT, Start date: 03/25/11 20:19:00, Stop date: 03/25/11 20:19:00 morphine Sulfate 4 mg, 0.8 mL, IVP No Longer [place] [facility] Route: IVP, Active 2010 Drug form: [...] [place] Suga r Route: PO, Active 2010 [facility] Drug form: TAB, [id number], Start date: 02/11/11 11:00:00, Duration: 30 day, Stop date: 03/12/11 23:00:00 magnesium oxide 400 mg, 1 tab, PO No Longer [place] [facility] Route: PO, Active 2010 Drug form: TAB, Daily, Start date: 02/11/11 9:00:00, Duration: 30 day, Stop date: 03/12/11 9:00:00 Lantus 70 unit, SUB-Q No Longer [place] [facility] Route: SUB-Q, Active 2010 Drug form: SOLN, Daily, Start date: 02/11/11 9:00:00, Duration: 30 day, Stop date: 03/12/11 9:00:00 Levemir FlexPen 70 unit, 0.7 SUB-Q No Longer [facility] mL, Route: Active 2010 SUB-Q, Drug form: INJ, Daily, Start date: 02/11/11 9:00:00, Duration: 30 day, Stop date: 03/12/11 9:00:00 Saline Flush 0.9% 5 ml, Route: IVP No Longer [place] [facility] IVP, Drug Active 2010 [facility] Form: INJ, Q12H, Start date: 02/11/11 [...] Route: PO, Active 2010 Drug form: TAB, [id number], Start date: 02/11/11 3:00:00, Duration: 30 day, [...] Sliding Scale - mL, Route: Active 2010 [facility] Low SUB-Q, Drug form: SOLN, Sliding Scale, PRN Blood Glucose Results, Start date: 02/11/11 2:05:00, Duration: 30 day, Stop date: 03/13/11 1:04:00 glucagon 1 mg, Route: IM No Longer [place] [facility] IM, Drug form: Active 2010 [facility] PDR/INJ, PRN, PRN Blood Glucose Results, Start date: 02/11/11 2:05:00, Duration: 30 day, Stop date: 03/13/11 1:04:00 Dextrose 50% 25 gm, 50 ml, IVP No Longer [place] [facility] Syringe Route: IVP, 2010 [facility] Drug Form: INJ, PRN, PRN Blood Glucose Results, Start date: 02/11/11 2:05:00, Duration: 30 day, Stop date: 03/13/11 1:04:00 Saline Flush 0.9% 5 ml, Route: IVP No Longer [place] [facility] IVP, Drug Active 2010 [facility] Form: INJ, PRN, PRN Line Flush, Start date: 02/11/11 2:05:00, Duration: 30 day, Stop date: 03/13/11 1:04:00 nitroglycerin SL 0.4 mg, 1 tab, SL No Longer [facility] Tab Route: SL, Active 2010 [facility] Drug form: TAB, Q5Min, PRN Chest Pain, Start date: 02/11/11 2:05:00, Duration: 3 doses or times, Stop date: Limited # of times morphine Sulfate 2 mg, 0.4 mL, IVP No Longer [place] [facility] Route: IVP, Active 2010 [facility] Drug form: INJ, Q15Min, PRN Chest Pain, Start date: 02/11/11 2:05:00, Duration: 2 doses or times, Stop date: Limited # of times acetaminophen 650 mg, 2 tab, PO No Longer [facility] Route: PO, Active 2010 [facility] Drug form: TAB, Q4H, PRN Headache, Start date: 02/11/11 2:05:00, Duration: 30 day, Stop date: 03/13/11 2:04:00 diphenhydrAMINE 25 mg, 1 tab, PO No Longer [place] [facility] Route: PO, Active 2010 [facility] Drug form: TAB, Bedtime, PRN Insomnia, [...] [place] Hein gar Route: PO, Active 2010 [facility] Drug form: TAB, Q8H, PRN Nausea & Vomiting, Start date: 02/11/11 2:05:00, Duration: 30 day, Stop date: 03/13/11 2:04:00 temazepam 15 mg, 1 cap, PO No Longer [place] Sug ar Route: PO, 2010 [facility] Drug form: CAP, Bedtime, PRN Insomnia, Start date: 02/11/11 2:05:00, Duration: 30 day, Stop date: 03/13/11 2:04:00 aspirin 325 mg 325 mg, 1 tab, PO No Longer [place] tablet Route: PO, Active 2010 [facility] Drug form: TAB, ONCE, Start date: 02/11/11 2:05:00, Stop date: 02/11/11 2:05:00 morphine Sulfate 2 mg, 0.4 mL, IVP No Longer [place] 02/11 [place] Route: IVP, Active 2010 [facility] Drug form: INJ, ONCE, Priority: STAT, Start date: 02/11/11 0:37:00, Stop date: 02/11/11 0:37:00 Visipaque 48,000 mg, 150 IV No Longer [place] Sugar mL, Route: IV, Active 2010 [facility] Drug form: INJ, ONCE, Start date: [...] H Sugar ointment Route: TOP, Active 2010 [facility] Drug Form: OINT, ONCE, STAT, Start date: 02/10/11 21:47:00, Stop date: 02/10/11 21:47:00 nitroglycerin 0.4 mg, 1 tab, SL No Longer [place] [facility] Route: SL, Active 2010 [facility] Drug form: TAB, Q5Min, PRN Chest Pain, (Hold if SBP < = 90 mmHg or if < = 100mmHg with symptomatic dizziness), Start date: 02/10/11 21:47:00, Duration: 3 doses or times, Stop date: Limited # of times morphine Sulfate 2 mg, Route: IVP No Longer [place] [facility] IVP, ONCE, Active 2010 [facility] Priority: STAT, Start date: 02/10/11 21:47:00, Stop date: 02/10/11 21:47:00 Saline Flush 0.9% 5 ml, Route: IVP No Longer [place]an 02/11 [facility] IVP, PRN, PRN Active 2010 [facility] Line Flush, Start date: 02/10/11 21:47:00, Duration: 30 day, Stop date: 03/12/11 20:46:00 aspirin 325 mg 325 mg, 1 tab, PO No Longer [facility] Sugar tablet, enteric Route: PO, Active 2010 [facility] coated Drug form: ECTAB, Daily, Start date: 01/16/11 9:00:00, Duration: 30 day, Stop date: 02/14/11 9:00:00 Requip 1 mg, 1 tab, PO No Longer [place] [facility] Route: PO, Active 2010 [facility] Drug form: TAB, Bedtime, Start date: 01/15/11 21:00:00, Duration: 30 day, Stop date: 02/13/11 21:00:00 Nitrostat 0.4 mg 1 tab, SL, SL Active [place] S ugar sublingual tablet Q5Min, PRN, 2010 [...] Fioricet oral 1 tab, PO, PO Active [facility] Suga r tablet Q4H, PRN, 2010 tab, Headache, Substitution Allowed, Maintenance, TAB Fioricet 1 tab, Route: PO No Longer Consuelo Suga r PO, Drug Form: Active 2010 TAB, Q4H, PRN Headache, Start date: 01/15/11 9:15:00, Duration: 30 day, Stop date: 02/14/11 9:14:00 aspirin 81 mg 81 mg, 1 tab, PO No Longer [facility] Sugar tablet, enteric Route: PO, Active 2010 coated Drug form: ECTAB, Daily, Start date: 01/15/11 9:00:00, Duration: 30 day, Stop date: 02/13/11 9:00:00 Requip 1 mg oral 1 mg, 1 tab, PO Active Sugar tablet PO, Bedtime, 2010 Substitution Allowed ibuprofen 400 mg 400 mg, 1 tab, PO No Longer [place] Sugar oral tablet Route: PO, Active 2010 Drug form: TAB, Q8H, Start date: 01/15/11 0:00:00, Duration: 30 day, Stop date: 02/13/11 16:00:00 Saline Flush 0.9% 5 ml, Route: IVP No Longer [place] IVP, Drug Active 2010 Form: INJ, Q12H, Start date: 01/14/11 21:00:00, Duration: 30 day, Stop date: 02/13/11 9:00:00 Levemir FlexPen 70 unit, 0.7 SUB-Q No Longer [place] 01/15/ H Sugar mL, Route: Active 2010 [facility] SUB-Q, Drug form: INJ, Bedtime, Start date: 01/14/11 21:00:00, Duration: 30 day, Stop date: 02/12/11 21:00:00 Lantus 70 unit, SUB-Q No Longer [place] [facility] Route: SUB-Q, Active 2010 [facility] Bedtime, Start date: 01/14/11 21:00:00, Duration: 30 day, Stop date: 02/12/11 21:00:00 glucagon 1 mg, Route: IM No Longer [place] IM, Drug form: Active 2010 [facility] PDR/INJ, PRN, PRN Blood Glucose Results, Start date: 01/14/11 19:22:00, Duration: 30 day, Stop date: 02/13/11 19:21:00 Insulin (Novolog) 6 unit, 0.06 SUB-Q No Longer [place] [facility] Sliding Scale - mL, Route: Active 2010 [facility] Very High SUB-Q, Drug form: SOLN, [...] Longer [place] Sugar IVP, Drug Active 2010 [facility] Form: INJ, PRN, PRN Line Flush, [...] 5 unit, 0.05 IVP No Longer [place] Sugar mL, Route: Active 2010 IVP, Drug form: SOLN, ONCE, Priority: STAT, Start date: 01/14/11 17:10:00, Stop date: 01/14/11 17:10:00 GI cocktail 30 ml, Route: PO No Longer [place]or S ugar PO, Drug Form: Active 2010 [facility] SUSP, ONCE, Routine, Start date: 01/14/11 17:08:00, [...] 0.9% 5 ml, Route: IVP No Longer [facility] Sugar IVP, Drug Active 2010 Form: INJ, PRN, PRN Line Flush, Start date: 01/14/11 15:20:00, Duration: 30 day, Stop date: 02/13/11 15:19:00 ibuprofen 400 mg 1 tab, PO, PO Active [facility] S ugar oral tablet Q4H, PRN, 2010 tab, Pain, Substitution Allowed acetaminophen-hyd 1 tab, PO, PO Active [facility] Sugar rocodone 500 mg-5 Q4-6H, PRN, 2010 mg oral tablet tab, Pain, Substitution Allowed, Maintenance acetaminophen-hyd 1 tab, Route: PO No Longer [place] Sugar rocodone 500 mg-5 PO, Drug Form: Active 2010 [place] mg oral tablet TAB, ONCE, STAT, Start date: 12/22/10 12:39:00, Stop date: 12/22/10 12:39:00 Allergies, Adverse Reactions, Alerts Substance Category Reaction Severity Reaction Status Date Comments S ource type Reported Ritalin Assertion Drug Active allergy [facility] Immunizations No Data Provided for This Section Results Order Name Results Value Reference Date Interpretation Comments Nely rce Range BACTERIAL Strep Negative Negative 02/26 [facility] - SEROLOGY pneumoniae (02/25/17 9:02 PM) /2016 Hospital Ag BACTERIAL Source Strep Cerebral 02/26 [facility] SER[facility]Y Spinal /2016 Hospital Fluid BODY Tube Num CSF 1 02/26 [facility] FLUIDS /2016 Hospital BODY Clarity CSF Clear Clear 02/26 [facility] FLUIDS (02/25/17 9:02 PM) /2016 [facility] BODY Color CSF Colorless Colorless 02/26 [facility] FLUIDS (02/25/17 9:02 PM) /2016 [facility] BODY Supernat CSF Colorless Colorless 02/26 [facility] FLUIDS (02/25/17 9:02 PM) /2016 [facility] BODY WBC CSF 2 0 - 53 02/26 [facility] FLUIDS /2016 Hospital BODY RBC CSF 1 0 - 03 02/26 [facility] FLUIDS /2016 Hospital BODY RBC CSF 1 0 - 03 02/26 [facility] FLUIDS /2016 Hospital BODY WBC CSF 2 0 - 53 02/26 [facility] FLUIDS /2016 Hospital BODY Supernat CSF Colorless Colorless 02/26 [facility] FLUIDS (02/25/17 9:02 PM) /2016 [facility] BODY Clarity CSF Clear Clear 02/26 [facility] FLUIDS (02/25/17 9:02 PM) /2016 [facility] BODY Tube Num CSF 4 02/26 [facility] FLUIDS /2016 Hospital BODY Color CSF Colorless Colorless 02/26 [facility] FLUIDS (02/25/17 9:02 PM) /2016 [facility] BODY Glucose CSF 219 45 - 80 02/26 Result [facility] FLUIDS Comment: Hospital Critical Result(s) called to Charlotte Hodge at _02/25/2017 21:45 bybz_. Read back OK.

NOTE: RESULTS autoverfied BODY Protein CSF 55 15 - 45 02/26 [facility] FLUIDS /2016 Hospital FUNGAL - Crypto Ag Negative Negative 02/26 [facility] SEROLOGY CSF (02/25/17 9:02 PM) /2016 [facility] IMMUNOLOGY VDRL Scr CSF Non Reactive Non 02/26 [facility] (02/25/17 9:02 PM) Reactive /2016 [facility] [...] curve analysis. MOLECULAR Source HSV Cerebral 02/26 [facility] DIAGNOSTIC Spinal /2016 Hospital Fluid VIRAL - [facility]ovirus Negative [facility] (02/25/17 9:02 PM) [facility] CHEM PANEL A/G Ratio 0.9 0.7 - 1.6 02/26 [facility] CHEM PANEL B/C Ratio 23 6 - 25 02/26 [facility] CHEM PANEL Globulin 4.3 2.7 - 4.2 02/26 [facility] CHEM PANEL AGAP 11.3 10.0 - 02/26 [facility] 20.0 [facility] CHEM PANEL eGFR 101 02/26 [facility] eGFR is calculated using [...] PANEL BUN 16 7 - 22 02/26 [facility] CHEM PANEL ALANINE 17 0 - 65 02/26 [facility] CHEM PANEL Total 8.2 6.4 - 8.4 02/26 [facility] CHEM PANEL Potassium 4.3 3.5 - 5.1 02/26 [facility] /2016 [facility] CHEM PANEL Sodium Lvl 130 135 - 145 02/26 [facility] CHEM PANEL Creatinine 0.70 0.50 - 02/26 [facility] Lvl 1.40 /2016 Hospital CHEM PANEL Glucose Lvl 340 70 - 99 02/26 [facility] /2016 [facility] CHEM PANEL Calcium Lvl 8.9 8.5 - 10.5 02/26 [facility] /2017 [facility] CHEM PANEL Chloride Lvl 97 95 - 109 02/26 [facility] /2016 [facility] CHEM PANEL CO2 26 24 - 32 02/26 [facility] /2017 Hospital CHEM PANEL Alk Phos 158 39 - 136 02/26 [facility] /2017 Hospital CHEM PANEL ASPARTATE 16 0 - 37 02/26 [facility]ASE [facility] CHEM PANEL Albumin Lvl 3.9 3.5 - 5.0 02/26 [facility] /2016 [facility] CHEM PANEL Lactic Acid 1.8 0.5 - 2.2 02/26 [facility] Lvl /2016 Hospital HEMATOLOGY Platelet 305 133 - 450 02/26 [facility] /2017 Hospital HEMATOLOGY MCV 82.2 80.0 - 02/26 [facility] 98.0 /2016 Hospital HEMATOLOGY Hct 37.1 36.0 - 02/26 [facility] 48.0 /2016 Hospital HEMATOLOGY MPV 7.4 7.4 - 10.4 02/26 [facility] /2017 Hospital HEMATOLOGY RDW 14.1 11.5 - 02/26 [facility] 14.5 /2016 Hospital HEMATOLOGY MCH 27.6 27.0 - 02/26 [facility] 31.0 /2016 Hospital HEMATOLOGY MCHC 33.6 32.0 - 02/26 [facility] 36.0 /2017 Hospital HEMATOLOGY RBC X 10x6 4.52 4.20 - 02/26 [facility] 5.40 /2016 Hospital HEMATOLOGY Hgb 12.5 12.0 - 02/26 [facility] 16.0 /2016 Hospital HEMATOLOGY WBC X 10x3 7.1 3.7 - 10.4 02/26 [facility] /2017 [facility] HEMATOLOGY Basophils 0.8 0.0 - 1.0 02/26 [facility] /2017 [facility] HEMATOLOGY Lymphocytes 2.8 1.0 - 5.5 02/26 [facility] # /2016 Hospital HEMATOLOGY Segs-Bands # 3.8 1.5 - 8.1 02/26 [facility] /2017 [facility] HEMATOLOGY Monocytes # 0.4 0.0 - 0.8 02/26 [facility] /2016 [facility] HEMATOLOGY Segs 53.4 45.0 - 02/26 [facility] 75.0 /2016 Hospital HEMATOLOGY Lymphocytes 39.1 20.0 [...] AND UA 0.2 0.1 - 1.0 02/26 [facility] STOOL Urobilinogen /2016 Hospital URINE AND UA Nitrite Negative Negative 02/26 [facility] (02/25/17 7:42 PM) [facility] URINE AND UA Bili Negative Negative 02/26 [facility] STOOL *NA* /2016 Hospital (02/25/17 7:42 PM) URINE AND UA Ketones Negative Negative 02/26 [facility] *NA* /2016 [facility] (02/25/17 7:42 PM) URINE AND UA Bacteria Many /HPF None Seen 02/26 [facility] /HPF /2016 Hospital URINE AND UA WBC 0-2 /HPF None Seen 02/26 [facility] STOOL /HPF /2016 Hospital URINE AND UA RBC 0-2 /HPF 0 - 2 02/26 [facility] STOOL /2016 Hospital URINE AND UA Leuk Est Negative Negative 02/26 [facility] ST[facility] (02/25/17 7:42 PM) /2016 [facility] URINE AND UA Sq Epi Few /LPF Few /LPF 02/26 [facility] STOOL Hospital URINE AND UA Blood Negative Negative 02/26 [facility] STOOL (02/25/17 7:42 PM) [facility] URINE AND UA Glucose >=1000 Negative 02/26 [facility] STOOL mg/dL mg/dL /2016 Hospital URINE AND UA Protein Negative Negative 02/26 [facility] (02/25/17 7:42 PM) [facility]pi [facility] URINE AND UA pH 6.0 5.0 - 8.0 02/26 [facility] STOOL /2016 Hospital URINE AND UA Spec Grav 1.010 <=1.030 02/26 [facility] URINE AND UA Color Yellow Yellow 02/26 [facility] STOOL *NA* /2016 Hospital (02/25/17 7:42 PM) URINE AND UA Turbidity Slight Cloudy Clear 02/26 [facility] STOOL (02/25/17 7:42 PM) Hospi [facility] VIRAL - Influ B Negative Negative 02/26 [facility] SEROLOGY (02/25/17 7:42 PM) [facility] VIRAL - Influ A Negative Negative 02/26 [facility] SEROLOGY (02/25/17 7:42 PM) [facility] CHEM PANEL eGFR 121 01/26 Comment: The Hospital eGFR is calculated using [...] Alk Phos 165 39 - 136 01/26 [facility] CHEM PANEL B/C Ratio 12 6 - 25 01/26 [facility] CHEM PANEL Globulin 3.3 2.7 - 4.2 01/26 [facility] CHEM PANEL Albumin Lvl 2.4 3.5 - 5.0 01/26 [facility] CHEM PANEL Total 5.7 6.4 - 8.4 01/26 [facility] CHEM PANEL AGAP 9.7 10.0 - 01/26 [facility] 20.0 [facility] CHEM PANEL Glucose Lvl 261 70 - 99 01/26 [facility] CHEM PANEL Calcium Lvl 7.4 8.5 - 10.5 01/26 [facility] CHEM PANEL A/G Ratio 0.7 0.7 - 1.6 01/26 [facility] CHEM PANEL Creatinine 0.40 0.50 - 01/26 [facility] Lvl 1.40 [facility] CHEM PANEL BUN 5 7 - 22 01/26 [facility] 2017 Hospital CHEM PANEL ASPARTATE 37 0 - 37 01/26 [facility]ANS[facility]ASE [facility] CHEM PANEL ALANINE 44 0 - 65 01/26 [facility] RASE CHEM PANEL Potassium 3.7 3.5 - 5.1 01/26 [facility] CHEM PANEL Sodium Lvl 137 135 - 145 01/26 [facility] CHEM PANEL CO2 25 24 - 32 10 [facility] CHEM PANEL Chloride Lvl 106 95 - 109 01/26 [facility] CARDIAC Troponin-I <0.02 0.00 - 01/25 [facility] ENZYMES 0.40 [facility] PARATHYROI Ca Norm WB 0.99 1.05 - 01/25 [facility] D PROFILE 1. [facility] PARATHYROI Ca Ion WB 1.01 1.05 - 01/25 [facility] D PROFILE 1. [facility] CHEM PANEL Albumin Lvl 2.6 3.5 - 5.0 01/25 [facility] CHEM PANEL eGFR 112 01/25 Result [facility] Comment: The Hospital eGFR is calculated using [...] CHEM PANEL Creatinine 0.50 0.50 - 01/25 [facility] Lvl 1.40 [facility] CHEM PANEL Sodium Lvl 135 135 - 145 01/25 [facility] CHEM PANEL Potassium 3.6 3.5 - 5.1 01/25 [facility] CHEM PANEL CO2 25 24 - 32 01/25 [facility] CHEM PANEL Chloride Lvl 105 95 - 109 01/25 [facility] CHEM PANEL AGAP 8.6 10.0 - 01/25 [facility] 20.0 [facility] CHEM PANEL Calcium Lvl 6.9 8.5 - 10.5 01/25 [facility] Comment: Hospital Critical Result(s) called to uyen martinez_ at _01/25/2017 15:47 by_bz. Read back OK. CHEM PANEL Glucose Lvl 263 70 - 99 01/25 [facility] CHEM PANEL BUN 8 7 - 22 01/25 [facility] CHEM PANEL Phosphorus 2.7 2.5 - 4.5 01/25 [facility] CHEM PANEL eGFR 106 01/25 Result [facility] Comment: The Hospital eGFR is calculated using [...] BMI. CHEM PANEL Creatinine 0.60 0.50 - 01/25 [facility] Lvl 1.40 [facility] CHEM PANEL BUN 9 7 - 22 01/25 [facility] CHEM PANEL Glucose Lvl 405 70 - 99 01/25 [facility] Comment: [facility] Critical Result(s) called to Dung Mullins at 01/25/2017 04:39 by CV. Read back OK. CHEM PANEL AGAP 12.5 10.0 - 01/25 [facility] 20.0 [facility] CHEM PANEL Potassium 3.5 3.5 - 5.1 01/25 [facility] CHEM PANEL Chloride Lvl 102 95 - 109 01/25 [facility] CHEM PANEL CO2 23 24 - 32 01/25 [facility] CHEM PANEL Calcium Lvl 7.1 8.5 - 10.5 01/25 [facility] CHEM PANEL Sodium Lvl 134 135 - 145 01/25 [facility] CHEM PANEL Magnesium 1.7 1.8 - 2.4 01/25 [facility] HEMATOLOGY MPV 7.4 7.4 - 10.4 01/25 [facility] 2017 [facility] HEMATOLOGY RDW 13.6 11.5 - 01/25 [facility] 14.5 [facility] HEMATOLOGY Platelet 244 133 - 450 01/25 [facility] 2017 [facility] HEMATOLOGY MCHC 33.4 32.0 - 01/25 [facility] 36.0 [facility] HEMATOLOGY MCV 82.5 80.0 - 01/25 [facility] 98.0 [facility] HEMATOLOGY MCH 27.6 27.0 - 01/25 [facility] 31.0 [facility] HEMATOLOGY Hgb 10.7 12.0 - 01/25 [facility] 16.0 [facility] HEMATOLOGY Hct 32.0 36.0 - 01/25 [facility] 48.0 [facility] HEMATOLOGY WBC X 10x3 5.5 3.7 - 10.4 01/25 [facility] HEMATOLOGY RBC X 10x6 3.88 4.20 - 01/25 [facility] 5.40 [facility] HEMATOLOGY Monocytes 7.2 2.0 - [...] Hospital HEMATOLOGY Segs 55.0 45.0 - 01/25 [facility] 75.0 Hospital SPECIAL Hgb A1C >16.0 % <=5.6 % 01/25 [facility] CHEMISTRY Hospital URINE AND UA Sq Epi Occasional Few /LPF 01/25 [facility] STOOL /LPF /2016 Hospital URINE AND UA WBC 11-20 /HPF None Seen 01/25 [facility] /HPF /2016 Hospital URINE AND UA Bacteria Moderate None Seen 01/25 [facility] STOOL /HPF /HPF /2016 Hospital URINE AND UA RBC 0-2 /HPF 0 - 2 01/25 [facility] STOOL /2016 Hospital URINE AND UA Leuk Est Negative Negative 01/25 [facility] (01/24/17 11:54 PM) /2016 [facility] URINE AND UA Nitrite Positive Negative 01/25 [facility] *ABN* /2016 Hospital (01/24/17 11:54 PM) URINE AND UA Blood Negative Negative 01/25 [place] STOOL (01/24/17 11:54 PM) [facility] URINE AND UA Bili Negative Negative 01/25 [place] STOOL *NA* /2016 Hospital (01/24/17 11:54 PM) URINE AND UA Glucose >=1000 Negative 01/25 [facility] STOOL mg/dL mg/dL /2016 Hospital URINE AND UA Protein Negative Negative 01/25 [facility] (01/24/17 11:54 PM) [facility] URINE AND UA 0.2 0.1 - 1.0 01/25 [place] STOOL Urobilinogen /2016 Hospital URINE AND UA Ketones Negative Negative 01/25 [facility] *NA* /2016 Hospital (01/24/17 11:54 PM) URINE AND UA pH 5.5 5.0 - 8.0 01/25 [facility] STOOL /2016 Hospital URINE AND UA Spec Grav <=1.005 <=1.030 01/25 [facility] *NA* /2016 Hospital (01/24/17 11:54 PM) URINE AND UA Color Yellow Yellow 01/25 [facility] STOOL *NA* /2016 Hospital (01/24/17 11:54 PM) URINE AND UA Turbidity Clear Clear 01/25 [facility] (01/24/17 11:54 PM) /2016 [facility] CARDIAC Total CK 62 12 - 191 01/25 [facility] CARDIAC CK MB <1.0 0.5 - 3.6 01/25 [facility] CARDIAC Troponin-I <0.02 0.00 - 01/25 [facility] ENZYMES 0.40 Hospital CARDIAC CK-MB INDEX <1.6 0.0 - 2.5 01/25 [facility] CHEM PANEL ASPARTATE 14 0 - 37 01/25 [facility] TRANSAMINASE [facility] CHEM PANEL Bili Total 0.5 0.2 - 1.3 01/25 [facility] CHEM PANEL ALANINE 37 0 - 65 01/25 [facility] RASE CHEM PANEL Alk Phos 222 39 - 136 01/25 [facility] CHEM PANEL A/G Ratio 0.7 0.7 - 1.6 01/25 [facility] CHEM PANEL Globulin 4.7 2.7 - 4.2 01/25 [facility] CHEM PANEL Albumin Lvl 3.5 3.5 - 5.0 01/25 [facility] CHEM PANEL B/C Ratio 16 6 - 25 01/25 [facility] 2017 [facility] CHEM PANEL Total 8.2 6.4 - 8.4 01/25 [facility] CHEM PANEL Lipase Lvl 168 73 - 393 01/25 [facility] 2017 [facility] HEMATOLOGY Hgb 13.7 12.0 - 01/25 [facility] 16.0 2017 Hospital HEMATOLOGY Hct 41.6 36.0 - 01/25 [facility] 48.0 Hospital HEMATOLOGY MCV 83.6 80.0 - 01/25 [facility] 98.0 /2016 Hospital HEMATOLOGY MCH 27.5 27.0 - 01/25 [facility] 31.0 /2017 Hospital HEMATOLOGY MCHC 32.9 32.0 - 01/25 [facility] 36.0 /2016 Hospital HEMATOLOGY RDW 13.6 11.5 - 01/25 [facility] 14.5 [facility] HEMATOLOGY Platelet 314 133 - 450 01/25 [facility] /2017 Hospital HEMATOLOGY MPV 8.1 7.4 - 10.4 01/25 [facility] /2017 Hospital HEMATOLOGY WBC X 10x3 5.8 3.7 - 10.4 01/25 [facility] /2017 [facility] HEMATOLOGY RBC X 10x6 4.97 4.20 - 01/25 [facility] 5.40 /2016 Hospital HEMATOLOGY Monocytes # 0.4 0.0 - 0.8 01/25 [facility] /2017 Hospital HEMATOLOGY Basophils 0.7 0.0 - 1.0 01/25 [facility] /2016 [facility] HEMATOLOGY Segs-Bands # 3.5 1.5 - 8.1 01/25 [facility] 2017 [facility] HEMATOLOGY Monocytes 7.1 2.0 - 12.0 01/25 [facility] HEMATOLOGY Eosinophils 0.6 0.0 - 4.0 01/25 [facility] /2017 Hospital HEMATOLOGY Lymphocytes 1.8 1.0 - 5.5 01/25 [facility] # /2016 Hospital HEMATOLOGY Segs 59.9 45.0 - 01/25 [facility] 75.0 /2016 Hospital HEMATOLOGY Lymphocytes 31.7 20.0 - 01/25 [facility] 40.0 [facility] BEDSIDE Comment1 Notify 02/05 NA GLUCOSE KIRIT/ /2011 [facility] TESTING BEDSIDE Gluc POC 293 70 - 99 02/05 [place] <sup>1</sup>I GLUCOSE Lif[facility] nterpretive [facility] TESTING Data: Upper Reportable Limit: 200 mg/dL. BEDSIDE Comment1 Notify 11/28 NA [place] [facility]UCOSE [facility]/ /2011 [facility] TESTING BEDSIDE Gluc POC 233 70 - 99 11/28 [place] <sup>1</sup>I [facility] GLUCOSE Lif[facility] /2011 nterpretive [facility] TESTING Data: Upper Reportable Limit: 200 mg/dL. CHEMISTRY Ketone 0.14 <=0.27 11/28 Normal [facility] /2011 [facility] CHEMISTRY AST 8 0 - 37 11/28 Normal [facility] [place] CHEMISTRY Bili Total 0.2 0.2 - [...] ALT 13 0 - 65 11/28 Normal [facility] [place] CHEMISTRY Glucose Lvl 476 70 - 99 11/28 CRIT <sup>3</sup>R [facility] [place] Comment: Critical Result(s) called to Carisa at 11/28/2011 22:38:17 CDT by juancho. Read back OK.
<sup> 4</sup>Interp retive Data: Adult reference range values reflect the clinical guidelines
of the [place] [employer]. CHEMISTRY Chloride Lvl 98 95 - 109 11/28 Normal [facility] [place] CHEMISTRY Creatinine 0.7 0.5 - 1.4 11/28 Normal [facility] CHEMISTRY BUN 11 7 - 22 11/28 Normal [facility] [place] CHEMISTRY Potassium 4.2 3.5 - 5.1 11/28 Normal [facility] CHEMISTRY Sodium Lvl 134 135 - 145 11/28 LOW [facility] /2011 [facility] HEMATOLOGY RBC 4.41 4.20 - 11/28 Normal [facility] 5.40 /2011 [facility] HEMATOLOGY WBC 5.7 3.7 - 10.4 11/28 Normal [facility] [place] HEMATOLOGY MCHC 33.2 32.0 - 11/28 Normal [facility] 36.0 /2011 [facility] HEMATOLOGY Hgb 12.9 12.0 - 11/28 Normal [place] 16.0 /2011 [facility] HEMATOLOGY RDW 13.8 [...] HEMATOLOGY Lymphocytes 35.2 20.0 - 11/28 Normal [facility] 40.0 /2011 [facility] HEMATOLOGY Lymphocytes 2.0 1.0 - 5.5 11/28 Normal [facility] # /2011 [facility] HEMATOLOGY Segs-Bands # 3.3 1.5 - 8.1 11/28 Normal [facility] /2011 [facility] HEMATOLOGY Eosinophils 0.1 0.0 - 0.5 11/28 Normal [facility] [place] [facility] # /2011 [facility] HEMATOLOGY Monocytes # 0.3 0.0 - 0.8 11/28 Normal [facility] /2011 [facility] HEMATOLOGY Basophils # 0.0 0.0 - 0.2 11/28 Normal [facility] /2011 [facility] URINALYSIS UA Spec Grav 1.010 <=1.030 11/28 Normal [facility] /2011 [facility] URINALYSIS UA pH 5.5 5.0 - 8.0 11/28 [facility] [place] URINALYSIS UA Color Yellow Yellow 11/28 NA [facility] *NA* /2011 [facility] [...] URINALYSIS UA Blood Negative Negative 11/28 Normal [place] (11/28/2011 22:05:00) [place] UR[place] U[place] Bili Negative Negative 11/28 NA [facility] *NA* /2011 [facility] (11/28/2011 [...] WBC 0-2 /HPF None Seen 11/28 Normal [place] (11/28/2011 22:05:00) [place] UR[place] Micro? Performed 11/28 Normal [place] (11/28/2011 22:05:00) [place] BEDSIDE Gluc [...] CHEMISTRY pCO2 Korey 40 38 - 52 / Normal [facility] /2011 [facility] CHEMISTRY pH Korey 7.42 7.28 - 10/24 Normal [facility] 7.42 /2012 [facility] CHEMISTRY Flow Kore[place] 0.0 10/24 NA [facility] /2011 [facility] CHEMISTRY Mode [place] Rm Air 10/24 Normal [place] (10/24/2011 22:06:00) /[place] CHE[place] O2 Sat [place] 95.0 40.0 - 07 HI [facility] 70.0 /2011 [facility] CHEMISTRY BE Korey [...] values reflect the clinical guidelines
of the [place] [employer]. CHEMISTRY Chloride Lvl 100 95 - 109 / Normal [facility] /2012 [facility] CHEMISTRY Albumin Lvl 3.8 3.5 - 5.0 / Normal [facility] /2012 [facility] CHEMISTRY Globulin 3.7 2.0 - 4.0 / Normal [facility] /2012 [facility] CHEMISTRY CO2 27 24 - 32 10/24 Normal [facility] /2012 [facility] CHEMISTRY AGAP 12.2 10.0 - 07/ Normal [facility] 20.0 /2012 [facility] CHEMISTRY Potassium 4.2 3.5 - 5.1 / Normal [place] Lvl /2011 [facility] CHEMISTRY Creatinine 0.8 0.5 - 1.4 10/24 Normal [facility] Lvl /2011 [facility] CHEMISTRY Sodium Lvl 135 135 - 145 07/ Normal [facility] /2011 [facility] CHEMISTRY B/C Ratio 24 6 - 25 07 Normal [facility] /2011 [facility] CHEMISTRY Total 7.5 6.4 - 8.4 10/24 Normal [facility] /2011 [facility] CHEMISTRY AST 10 0 - 37 10/24 Normal [facility] [place] CHEMISTRY Alk Phos 100 39 - 136 10/24 Normal [facility] [place] CHEMISTRY Bili Total 0.3 0.2 - 1.3 10/24 Normal [facility] /2011 [facility] CHEMISTRY A/G Ratio 1.0 0.7 - 1.6 10/24 Normal [facility] [place] CHEMISTRY ALT 17 0 - 65 10/24 Normal [facility] [place] CHEMISTRY Ketone 0.22 <=0.27 10/24 Normal [facility] [place] HEMATOLOGY Eosinophils 0.1 0.0 - 0.5 10/24 Normal [facility] [place] # /2011 [facility] HEMATOLOGY Lymphocytes 2.0 1.0 - 5.5 10/24 Normal [facility] [place] [facility] # /2011 [facility] HEMATOLOGY Basophils # 0.0 0.0 - 0.2 10/24 Normal [facility] [place] [facility] /2011 [facility] HEMATOLOGY Monocytes # 0.4 0.0 - 0.8 10/24 Normal [facility] [place] [facility] /2011 [facility] HEMATOLOGY Lymphocytes 29.4 20.0 - 07 Normal [facility] [place] 40.0 /2011 [facility] HEMATOLOGY Segs-Bands # 4.3 1.5 - 8.1 10/24 Normal [facility] /2011 [facility] HEMATOLOGY Monocytes 5.7 2.0 - 12.0 10/24 Normal [facility] [place] HEMATOLOGY Basophils 0.4 0.0 - 1.0 10/24 Normal [facility] /2011 [facility] HEMATOLOGY Eosinophils 1.2 0.0 - 4.0 10/24 Normal [facility] /2011 [facility] HEMATOLOGY Segs 63.3 45.0 - 07 Normal [facility] 75.0 /2011 [facility] HEMATOLOGY RDW 14.0 11.5 - 07 Normal [facility] 14.5 /2011 [facility] HEMATOLOGY Platelet 271 133 - 450 10/24 Normal [facility] /2011 [facility] HEMATOLOGY MPV 8.0 7.4 - 10.4 10/24 Normal [facility] /2011 [facility] HEMATOLOGY Hgb 13.3 12.0 - 07/13 Normal [facility] 16.0 /2011 [facility] HEMATOLOGY [...] 0-2 /HPF 0 - 2 10/24 Normal [facility] [place] (10/24/2011 22:05:00) [place] URINAL[place] Micro? [...] - 99 10/24 CRIT <sup>3</sup>I [place] GLUCOSE [facility] nterpretive [place] TESTING Data: Upper Reportable Limit: 200 mg/dL. BEDSIDE Gluc POC 273 65 - 110 05/23 HI <sup>1</sup>I [facility] GLUCOSE [facility] nterpretive [place] TESTING Data: Upper Reportable Limit: 200 mg/dL. BEDSIDE Comment1 Notify 05/23 NA [facility]UCOSE [facility]/ [facility] TESTING BEDSIDE Gluc POC >400 65 - 110 05/23 CRIT <sup>2</sup>I [facility] Data: Upper Reportable [...] 12.9 10.0 - 02 Normal [place] 20.0 /2011 [facility] CHEMISTRY Albumin Lvl 4.0 3.5 - 5.0 05/23 Normal [facility] [place] CHEMISTRY Total 7.8 6.4 - 8.4 05/23 Normal [facility] [place] CHEMISTRY B/C Ratio 15 6 - 25 05/23 Normal [facility] [place] CHEMISTRY Sodium Lvl 131 135 - 145 02/ LOW [facility] [place] CHEMISTRY A/G Ratio 1.1 0.7 - 1.6 05/23 Normal [facility] [place] CHEMISTRY Globulin 3.8 2.0 - 4.0 05/23 Normal [facility] [place] CHEMISTRY Calcium Lvl 8.6 8.5 - 10.5 05/23 Normal [facility] [place] [facility] /2011 [facility] CHEMISTRY AST 11 [...] on the clinical recommendatio ns of the [place] [employer]. CHEMISTRY BUN 12 7 - 22 05/23 Normal [place] CHEMISTRY Lipase Lvl 198 73 - 393 05/23 Normal [place] CHEMISTRY Ketone 0.36 <=0.27 05/23 HI [facility] Quantitative [facility] HEMATOLOGY Platelet 271 133 - 450 05/23 Normal [facility] [place] HEMATOLOGY MCHC 34.3 32.0 - 02 Normal [facility] [place] 36.0 /2011 [facility] HEMATOLOGY MPV 7.9 7.4 - 10.4 05/23 Normal [facility] [place] HEMATOLOGY Hgb 13.0 12.0 - 02 Normal [facility] 16.0 /2011 [facility] HEMATOLOGY MCH 29.5 27.0 - 02 Normal [facility] 31.0 /2011 [facility] HEMATOLOGY Hct 38.1 [...] HEMATOLOGY Segs-Bands # 3.8 1.5 - 8.1 02 Normal [facility] /2011 [facility] HEMATOLOGY [...] URINALYSIS UA Color Yellow Yellow 05/23 NA [facility] *NA* /2011 [facility] (05/22/2011 23:10:00) URINALYSIS UA Turbidity Clear Clear 05/23 Normal [place] (05/22/2011 23:10:00) [place] URINALYSIS UA Spec Grav <=1.030 05/23 NA [facility] /2011 [facility] Microbiolo Culture: 05/23 MH [...] Bacteria Occasional /HPF None Seen 05/08 Normal [place] (05/07/2011 18:16:00) [place] URINALYSIS Micro? Performed 05/08 Normal [place] (05/07/2011 18:16:00) [place] URINALYSIS UA Sq Epi Few /LPF Few 05/08 Normal [facility] [place] (05/07/2011 18:16:00) [place] URINALYSIS UA Leuk Est Negative Negative 05/08 Normal [facility] [place] [facility] (05/07/2011 18:16:00) [place] URINALYSIS UA WBC 21-50 /HPF None Seen 05/08 ABN [facility] *ABN* /2011 [facility] (05/07/2011 18:16:00) URINALYSIS UA Ketones Trace Negative 05/08 ABN [facility] *ABN* /2011 [facility] (05/07/2011 18:16:00) URINALYSIS UA Glucose >=1000 [...] Ratio 15 6 - 25 04/20 Normal [place] CHEMISTRY Calcium Lvl 9.2 8.5 - 10.5 04/20 Normal [facility] [place] [facility] /2011 [facility] CHEMISTRY Chloride Lvl 96 95 - 109 04/20 Normal [place] CHEMISTRY AGAP 16.2 10.0 - 04/20 Normal [facility] [place] 20.0 /2011 [facility] CHEMISTRY CO2 24 24 - 32 04/20 Normal [place] CHEMISTRY Albumin Lvl 4.0 3.5 - 5.0 04/20 Normal [place] CHEMISTRY Total 8.1 6.4 - 8.4 04/20 Normal [facility] [place] [facility] [place] CHEMISTRY Bili Total 0.4 0.2 - 1.3 04/20 Normal [place] CHEMISTRY Alk Phos 92 39 - 136 04/20 Normal [place] CHEMISTRY AST 4 0 - 37 04/20 Normal [place] CHEMISTRY ALT 14 0 - 65 04/20 Normal [place] CHEMISTRY A/G Ratio 1.0 0.7 - 1.6 04/20 Normal [place] CHEMISTRY Glucose Lvl 499 04/20 CRIT <sup>2</sup>R [facility] [place] Comment: Critical Result(s) called to umer at 04/19/2011 23:31 by rca. Read back OK.
<sup> 3</sup>Interp retive Data: Reference Ranges : 0 - 7 days : 41 - 90 mg/dL 7 days - 150 yrs : 70 - 99 mg/dL (fasting), based on the clinical recommendatio ns of the [place] [employer]. CHEMISTRY Creatinine 0.8 0.5 - [...] URINALYSIS UA pH 6.0 5.0 - 8.0 01/07 Normal [facility] [place] /2011 [facility] URINALYSIS UA [...] BUN 13 7 - 22 03/26 Normal [facility] /2010 [facility] CHEMISTRY Glucose Lvl 410 [...] on the clinical recommendatio ns of the [place] [employer]. CHEMISTRY Lipase Lvl 171 73 - 393 03/26 Normal [place] /2010 [facility] HEMATOLOGY Hgb 12.7 12.0 - 12 Normal [facility] 16.0 /2010 [facility] HEMATOLOGY RDW 14.0 11.5 - 03/26 Normal [facility] 14.5 [facility] HEMATOLOGY Hct 36.9 36.0 - 03/26 Normal [facility] 48.0 /2010 [facility] HEMATOLOGY MCV 85.5 81.0 - 03/26 Normal [facility] 99.0 /2010 [facility] HEMATOLOGY MCH 29.5 27.0 - 12/ Normal [place] 31.0 /2010 [facility] HEMATOLOGY MCHC 34.5 32.0 - 12/ Normal [facility] [place] 36.0 /2010 [facility] HEMATOLOGY Platelet 278 133 - 450 12/ Normal [facility] /2010 [facility] HEMATOLOGY MPV 8.2 7.4 - 10.4 12/ Normal [facility] /2010 [facility] HEMATOLOGY WBC 6.9 3.7 - 10.4 / Normal [facility] [place] /2010 [facility] HEMATOLOGY RBC 4.32 4.20 - 12/ Normal [facility] [place] 5.40 /2010 [facility] HEMATOLOGY Basophils 0.5 0.0 - 1.0 / Normal [facility] [place] /2010 [facility] HEMATOLOGY Segs-Bands # 4.6 1.5 - 8.1 03/26 Normal [facility] [place] /2010 [place] HEMATOLOGY Lymphocytes 1.9 1.0 - 5.5 03/26 Normal [place] # /2010 [place] HEMAT[facility]Y Monocytes # 0.3 0.0 - 0.8 03/26 Normal [place] /2010 [place] HEMAT[facility]Y Eosinophils 0.1 0.0 - 0.5 03/26 Normal [place] # /2010 [place] HEMAT[facility]Y Basophils # 0.0 0.0 - 0.2 / Normal [place] /2010 [place] HEMATOLOGY Lymphocytes 27.2 20.0 - 12/ Normal [place] 40.0 /2010 [place] HEMATOLOGY Segs 66.3 45.0 - 03/26 Normal [facility] [place] 75.0 /2010 [place] HEMATOLOGY Monocytes 4.8 2.0 - 12.0 / Normal [place] /2010 [place] HEMATOLOGY Eosinophils 1.2 0.0 - 4.0 03/26 Normal [place] /2010 [place] URINALYSIS UA Bacteria Occasional /HPF None Seen 03/26 Normal [place] (03/25/2011 20:00:00) [place] [facility] U[place] Yeast Occasional /HPF None Seen 03/26 ABN [...] on the clinical recommendatio ns of the [place] [employer]. CHEMISTRY BUN 11.0 7 - [...] Monocytes 6.1 2.0 - 12.0 02/11 Normal [place] /2010 [place] HEMATOLOGY Eosinophils 1.2 0.0 - 4.0 02/11 Normal [facility] [place] /2010 [place] HEMATOLOGY Basophils 0.6 0.0 - 1.0 02/11 Normal [facility] [place] /2010 [place] HEMATOLOGY Segs-Bands # 4.5 1.5 - 8.1 02/11 Normal [place] /2010 [place] HEMATOLOGY Lymphocytes 1.8 1.0 - 5.5 02/11 Normal [place] # /2010 [place] HEMATOLOGY Monocytes # 0.4 0.0 - 0.8 02/11 Normal [place] /2010 [place] HEMATOLOGY Basophils [...] gar (02/10/2011 22:26:00) ?? [place] URINALYSIS [facility] [place] Yeast Occasional /HPF >None Seen 02/11 ABN [...] esult [place] Comment: Critical Result(s) called to Shuba_ at 02/10/2011 22:36 by rvs. Read back OK.
<sup> 6</sup>Interp retive Data: Reference Ranges : 0 - 7 days : 41 - 90 mg/dL 7 days - 150 yrs : 70 - 99 mg/dL (fasting), based on the clinical recommendatio ns of the [place] [employer]. CHEMISTRY Sodium Lvl 131.0 135 - 145 02/11 LOW [place] CHEMISTRY Creatinine 0.6 0.5 - 1.4 02/11 Normal [place] CHEMISTRY BUN 12.0 7 - 22 02/11 Normal [place] CHEMISTRY Potassium 4.3 3.5 - 5.1 02/11 Normal [place] CHEMISTRY Ketones Qual Negative >Negative 02/11 Normal [place] (02/10/2011 22:03:00) ?? /2010 [place] HEMATOLOGY Segs-Bands # 3.9 1.5 - 8.1 02/11 Normal [place] /2010 [place] HEMATOLOGY Lymphocytes 2.0 1.0 - 5.5 [...] - 02/11 Normal <sup>9</sup>I [place] 35.8 nterpretive [place] Data: Heparin Therapeutic Range: 57 [...] 12.8 12.0 - 02/11 Normal [place] 16.0 [place] HEMATOLOGY MCH 28.9 27.0 - 02/11 [...] - 110 01/15 HI <sup>1</sup>I [place] GLUCOSE [facility] nterpretive [place] TESTING Data: Upper Reportable Limit: 200 mg/dL. BEDSIDE Comment1 Notify 01/15 NA [place] GLUCOSE RN/MD [place] TESTING BEDSIDE Comment1 Notify 01/15 NA [place] GLUCOSE RN/MD /2010 [place] TESTING BEDSIDE Gluc POC 88.0 65 - 110 01/15 Normal <sup>2</sup>I [place] GLUCOSE [facility] nterpretive [place] TESTING Data: Upper Reportable Limit: 200 mg/dL. BEDSIDE Comment1 Notify 01/15 NA [place] GLUCOSE RN/MD [place] TESTING BEDSIDE Gluc POC 70.0 65 - 110 01/15 Normal <sup>3</sup>I [place] GLUCOSE [facility] nterpretive [place] TESTING Data: Upper Reportable [...] on the clinical recommendatio ns of the [place] [employer]. CHEMISTRY LDL 96.0 0 - [...] 14.8 10.0 - 01/14 Normal [place] 20.0 /2010 [place] CHEMISTRY Calcium Lvl 8.6 8.5 - [...] on the clinical recommendatio ns of the [place] [employer]. CHEMISTRY BUN 9.0 7 - 22 01/14 Normal [facility] [place] /2010 [place] CHEMISTRY Creatinine 0.8 0.5 - 1.4 01/14 Normal [facility] [place] Lvl /2010 [place] CHEMISTRY Troponin-I <0.02 0.00 - 01/14 Normal [place] 0.40 /2010 [place] CHEMISTRY CK MB <0.5 0.5 - 3.6 01/14 Normal [place] /2010 [place] CHEMISTRY Total CK 78.0 12 - 191 01/14 Normal [place] /2010 [place] HEMATOLOGY Monocytes # 0.3 0.0 - 0.8 01/14 Normal [place] /2010 [place] HEMATOLOGY Lymphocytes 1.7 1.0 - 5.5 01/14 Normal [facility] [place] # /2010 [place] HEMATOLOGY Segs-Bands [...] MPV 8.0 7.4 - 10.4 01/14 Normal [facility] [place] /2010 [place] HEMATOLOGY Platelet 231.0 133 - 450 01/14 Normal [place] /2010 [place] HEMATOLOGY MCH 28.8 27.0 - 01/14 Normal [place] 31.0 /2010 [facility] HEMATOLOGY Hgb 13.2 12.0 - 10 Normal [place] 16.0 /2010 [facility] HEMATOLOGY RBC 4.6 4.20 - 01/14 Normal [place] 5.40 /2010 [facility] HEMATOLOGY Hct 38.9 36.0 - 01/14 Normal [place] 48.0 /2010 [facility] HEMATOLOGY MCV 84.6 81.0 - 01/14 Normal [place] 99.0 /2010 [facility] HEMATOLOGY WBC 5.6 3.7 - 10.4 10 Normal [place] /2010 [facility] HEMATOLOGY PT 13.6 12.0 - 01/14 Normal [place] 14.7 /2010 [facility] HEMATOLOGY PTT 30.2 22.9 - 10 Normal <sup>10</sup> [place] 35.8 Interpretive [place] Data: Heparin Therapeutic Range: 57 - 92 Seconds HEMATOLOGY INR 1.04 0.85 - 01/14 Normal <sup>8</sup>I [facility] r 1.17 nterpretive [facility] Data: RECOMMENDED RANGES FOR PROTIME INR: 2.0-3.0 for most medical and surgical thromboemboli c states. 2.5-3.5 for artificial heart valves and recurrent embolism. INR SHOULD BE USED ONLY FOR PATIENTS ON STABLE ANTICOAGULANT THERAPY. HEMATOLOGY D-Dimer 1.5 01/14 NA <sup>9</sup>I [facility] r /2010 nterpretive [facility] Data: In DIC, quantitative D-Dimer is [...] and I concur with the interpretation. 02/25/2017 [facility] Clinical Indication: Headache, fever, neck pain Comparison: [...] No mass, hemorrhage, or subacute stroke. SL: [id number] Spine cervical wo CT cervical spine without contrast 02/25/2017 [facility] contrast CT Clinical Indication: - neck pain [...] ABDOMEN AND PELVIS WITH CONTRA ST 01/24/2017 [facility] contrast CT Clinical Indication: Acute l eft [...] series DX RIGHT FOOT 3 VIEW 12/26/2016 [facility] HISTORY: Toe injury. No comparisons. FINDINGS: [...] Comments Source Systolic (mm Hg) 111 02/26/2017 [facility] Diastolic (mm Hg) 64 02/26/2017 [facility] Respitory Rate 16 02/26/2017 [facility] Temperature Oral (F) 97.6 F 02/26/2017 [facility] Heart Rate 85 02/26/2017 [facility] Respitory Rate 16 02/26/2017 [facility] Systolic (mm Hg) 114 02/26/2017 [facility] Diastolic (mm Hg) 66 02/26/2017 [facility] Heart Rate 82 02/26/2017 [facility] Temperature Oral (F) 98.8 F 02/26/2017 [facility] Weight 49.545 02/26/2017 [facility] BMI Calculated 18.75 02/26/2017 [facility] Height 162.56 cm 02/26/2017 [facility] Systolic (mm Hg) 109 02/26/2017 [facility] Diastolic (mm Hg) 65 02/26/2017 [facility] 84 02/26/2017 [facility] Respitory Rate 14 02/26/2017 [facility] Respitory Rate 18 02/25/2017 [facility] Systolic (mm Hg) 114 02/25/2017 [facility] Diastolic (mm Hg) 63 02/25/2017 [facility] Temperature Oral (F) 98.2 F 02/25/2017 [facility] Heart Rate 78 02/25/2017 [facility] BMI Calculated 18.75 02/25/2017 [facility] Weight 49.545 02/25/2017 [facility] Height 162.56 cm 02/25/2017 [facility] Heart Rate 77 02/25/2017 [facility] Respitory Rate 18 02/25/2017 [facility] Temperature Oral (F) 97.8 F 02/25/[facility] Systolic (mm Hg) 147 02/25/2017 [facility] Diastolic (mm Hg) 80 02/25/2017 [facility] Weight 49.659 02/25/2017 [facility] Height 167.64 cm 02/25/2017 [facility] Temperature Oral (F) 97.8 F 02/25/2017 [facility] BMI Calculated 17.67 02/25/2017 [facility] Systolic (mm Hg) 145 02/25/2017 [facility] Diastolic (mm Hg) 80 02/25/2017 [facility] Respitory Rate 18 02/25/2017 [facility] Heart Rate 77 02/25/2017 [facility] Temperature Oral (F) 98.5 F 01/26/2017 [facility] Heart Rate 87 01/26/2017 [facility] Respitory Rate 20 01/26/2017 [facility] Systolic (mm Hg) 116 01/26/2017 [facility] Diastolic (mm Hg) 69 01/26/2017 [facility] Heart Rate 79 01/26/2017 [facility] Respitory Rate 18 01/26/2017 [facility] Temperature Oral (F) 98.4 F 01/26/2017 [facility] Systolic (mm Hg) 129 01/26/2017 [facility] Diastolic (mm Hg) 80 01/26/2017 [facility] Temperature Oral (F) 98.1 F 01/26/2017 [facility] Heart Rate 78 01/26/2017 [facility] Systolic (mm Hg) 120 01/26/2017 [facility] Diastolic (mm Hg) 69 01/26/2017 [facility] Respitory Rate 20 01/26/2017 [facility] Height 157.48 cm 01/25/2017 [facility] Weight 51.449 01/25/2017 [facility] BMI Calculated 20.75 01/25/2017 [facility] Weight 52.273 01/25/2017 [facility] BMI Calculated 19.78 01/25/2017 [facility] Height 162.56 cm 01/25/2017 [facility] Systolic (mm Hg) 121 12/27/2016 [facility] Diastolic (mm Hg) 81 12/27/2016 [facility] Respitory Rate 16 12/27/2016 [facility] Heart Rate 82 12/27/2016 [facility] Temperature Oral (F) 98.3 F 12/27/2016 [facility] Temperature Oral (F) 98.4 F 12/27/2016 [facility] Respitory Rate 18 12/27/2016 [facility] Systolic (mm Hg) 126 12/27/2016 [facility] Diastolic (mm Hg) 81 12/27/2016 [facility] BMI Calculated 18.92 12/27/2016 [facility] Weight 50 12/27/2016 [facility] Heart Rate 89 12/27/2016 [facility] Height 162.56 cm 12/27/2016 [facility] Height 162.56 cm 02/06/2012 [facility] Weight 47.273 02/06/2012 [facility] Height 162.56 cm 11/29/2011 [place] Weight 50.000 11/29/2011 [place] Height 162.56 cm 10/25/2011 [place] Weight 54.545 10/25/2011 [place] Height 162.56 cm 05/23/2011 [place] Weight 50.000 05/23/2011 [place] Temperature Oral (F) 98.5 F 05/08/2011 [place] Diastolic (mm Hg) 57 05/08/2011 [place] Systolic (mm Hg) 107 05/08/2011 [place] Heart Rate 57 05/08/2011 [place] Respitory Rate 16 05/08/2011 [facility] [place] Weight 50.000 05/08/2011 [facility] [place] Height 162.56 cm 05/08/2011 [place] Temperature Oral (F) 98.6 F 05/08/2011 [facility] [place] Diastolic (mm Hg) 70 05/08/2011 [facility] [place] Systolic (mm Hg) 127 05/08/2011 [facility] [place] Heart Rate 83 05/08/2011 [facility] [place] Respitory Rate 16 05/08/2011 [facility] [place] Respitory Rate 18 04/20/2011 [facility] [place] Heart Rate 79 04/20/2011 [facility] [place] Diastolic (mm Hg) 75 04/20/2011 [facility] [place] Systolic (mm Hg) 119 04/20/2011 [facility] [place] Diastolic (mm Hg) 97 04/20/2011 [facility] [place] Heart Rate 80 04/20/2011 [facility] [place] Systolic (mm Hg) 148 04/20/2011 [facility] [place] Respitory Rate 20 04/20/2011 [facility] [place] Weight 50.000 04/20/2011 [facility] [place] Systolic (mm Hg) 122 04/20/2011 [place] Temperature Oral (F) 98.0 F 04/20/2011 [place] Respitory Rate 18 04/20/2011 [place] Heart Rate 79 04/20/2011 [facility] [place] Diastolic (mm Hg) 75 04/20/2011 [place] Temperature Oral (F) 98.0 F 03/26/2011 [facility] [place] Respitory Rate 18 03/26/2011 [place] Heart Rate 69 03/26/2011 [facility] [place] Systolic (mm Hg) 112 03/26/2011 [facility] [place] Diastolic (mm Hg) 60 03/26/2011 [facility] [place] Height 160.02 cm 03/26/2011 [facility] [place] Weight 53.636 03/26/2011 [facility] [place] Temperature Oral (F) 99.0 F 03/26/2011 [place] Diastolic (mm Hg) 67 03/26/2011 [facility] [place] Systolic (mm Hg) 115 03/26/2011 [facility] [place] Respitory Rate 16 03/26/2011 [facility] [place] Heart Rate 75 03/26/2011 [facility] [place] Diastolic (mm Hg) 51.0 02/11/2011 [facility] [place] Respitory Rate 14.0 02/11/2011 [facility] [place] Systolic (mm Hg) 100.0 02/11/2011 [facility] [place] Heart Rate 59.0 02/11/2011 [place] Temperature Oral (F) 98.1 F 02/11/2011 [facility] [place] Diastolic (mm Hg) 54.0 02/11/2011 [place] Systolic (mm Hg) 102.0 02/11/2011 [place] Temperature Oral (F) 97.5 F 02/11/2011 [place] Heart Rate 61.0 02/11/2011 [facility] [place] Respitory Rate 16.0 02/11/2011 [place] Height 162.56 cm 02/11/2011 [facility] [place] Weight 56.96 02/11/2011 [facility] [place] Respitory Rate 18.0 02/11/2011 [place] Temperature Oral (F) 98.0 F 02/11/2011 [place] Heart Rate 61.0 02/11/2011 [place] Systolic (mm Hg) 111.0 02/11/2011 [place] Diastolic (mm Hg) 61.0 02/11/2011 [place] Weight 52.273 02/11/2011 [place] Height 162.56 cm 02/11/2011 [place] Diastolic (mm Hg) 59.0 01/15/2011 [place] Systolic (mm Hg) 105.0 01/15/2011 [place] Temperature Oral (F) 97.0 F 01/15/2011 [place] Heart Rate 59.0 01/15/2011 [place] Respitory Rate 18.0 01/15/2011 [place] Temperature Oral (F) 97.2 F 01/15/2011 [place] Respitory Rate 18.0 01/15/2011 [place] Heart Rate 71.0 01/15/2011 [place] Diastolic (mm Hg) 59.0 01/15/2011 [place] Systolic (mm Hg) 106.0 01/15/2011 [place] Respitory Rate 18.0 01/15/2011 [place] Systolic (mm Hg) 110.0 01/15/2011 [place] Heart Rate 62.0 01/15/2011 [place] Temperature Oral (F) 97.9 F 01/15/2011 [place] Diastolic (mm Hg) 58.0 01/15/2011 [place] Height 162.56 cm 01/15/2011 [place] Weight 56.818 01/15/2011 [place] Height 162.56 cm 01/14/2011 [place] Weight 50.0 01/14/2011 [place] Systolic (mm Hg) 115.0 12/22/2010 [place] Diastolic (mm Hg) 78.0 12/22/2010 [place] Peripheral Pulse Rate 74.0 12/22/2010 [place] Respitory Rate 16.0 12/22/2010 [place] Height 162.56 cm 12/22/2010 [place] Weight 52.273 12/22/2010 [place] Temperature Oral (F) 98.2 F 12/22/2010 [place] Respitory Rate 16.0 12/22/2010 [place] Peripheral Pulse Rate 75.0 12/22/2010 [place] Diastolic (mm Hg) 77.0 12/22/2010 [place] Systolic (mm Hg) 125.0 12/22/2010 [place] Encounters Location Location Encounter Encounter Reason Attending ADM PA Stat us Source Details Type Number For Provider Date Date Visit Emergency [id number] ABD TRA PSYK 08/15 08/16 Acti ve [facility] 8 PAIN, /2009 [place] Emergency [id number] UPPER BE 09/20 09/21 [facility] ABDOMINA WHITE GREEN /2009 [place] Emergency [id number] EAR PAIN TRA PSYK 10/09 10/09 [facility] [place] [facility] [id number] CHEST TAJUDDIN 10/31 11/02 Active [place] 1 PAIN CONSUELO /2009 [place] Emergency [id number] ABDOMINA TROY 01/03 01/03 Active [place] 2 L PAIN ROWAN /2009 [place] OU [id number] ABDOMINA CHRISTOPHER 01/05 01/07 Activ e [place] 4 L PAIN GONZALEZ /2009 [place] Emergency [id number] SUGAR TRA PSYK 07/21 07/21 Acti ve [place] 6 HIGH,VAG /2010 [place] INAL [place] BLEEDING Emergency [id number] FACIAL TROY 10/07 10/07 [facility] AND NECK [place] /2010 [place] PAIN [place] Inpatient [id number] FACIAL TARAH 10/09 10/13 Active [facility] 8 NECK BRIDGES /2010 [place] CELLULIT [place] IS Emergency [id number] MOISE MONTEMAYOR 12/22 12/22 Disc harg [facility] ed [place] OU [id number] CHEST DEE CROCKETT 01/14 01/15 Active [facility] 0 PAIN /2010 [place] OU [id number] CHEST DEE CROCKETT 02/11 02/11 Active [place] 1 PAIN, /2010 [place] DIZZINES [place] S,HYPERG LYCEMIA, UTI Emergency [id number] LOWER LIZY 03/25 03/26 Active [facility] [place] 2 ABD WISEMAN /2010 [place] PA[place]/ [place] HIGH [place] Emergency [id number] RIGHT LIZY 04/19 04/20 Active [facility] 3 ABDOMINA WISEMAN /2011 [place], [place] BLOOD IN URINE Emergency [id number] BLEEDING TROY 05/07 05/07 Active [facility] 4 / RT ROWAN /2011 [place] PAIN Emergency [id number] ABDOMINA VIMI SHOEMAKER 05/22 05/23 Ac tive [facility] 5 L PAIN /2011 [place] BLOOD [place] Emergency [id number] LEFT VIMI SHOEMAKER 10/23 10/24 Acti ve [facility] 6 LOWER /2011 [place] ABDOMINA [place] L PAIN Emergency [id number] BLOOD VIMI SHOEMAKER 11/27 11/27 Acti ve [facility] 7 SUGAR /2011 [place] PROBLEM [place] YEIMY [id number] [place] 02/05 02/05 Discharg [facility] 9 BAVISHI /2011 ed [facility] e [facility] Outpatient [id number] ABDOMINA [place] 02/16 Active [facility] 8 L PAIN [facility] Emergency [id number] Moise Montemayor 12/27 12/27 JUST[facility] [id number] Greg 01/25 01/26 J[facility] 1 [id number] Rudolph 02/25 02/25 J[place] 2 Pilar Escobar [facility] Emergency [id number] Rudolph 02/26 02/26 [place] 3 [place] [facility] Outpatient [id number] ABD PAIN MESHA Jose Alfredo e [facility] 3 [facility] Procedures Procedure Code Date Perfomer Comments Source Appendectomy [id number] [facility] Cholecystectomy [id number] [facility] Partial hysterectomy [id number] [facility] Assessment and Plan Assessment and Plan Date Source Extracted from:Title: Progress Note * 01/26/2017 [facility] Author: Marie June MD Date: 01/25/17 Impression and Plan The patient was seen and examined by me with the 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 [...]
--- OUTSIDE RECORDS SUMMARY | 2020-04-23 18:37 | XMS REPORT | Continuity of Care Document ---
:1965 Author Organization [facility] t Address [address] [place] [address] Care Team Providers Name Role Phone Sharpless [...] HURT 00:00: Jona TOES 00 Active 12/27/2016 [facility] [place] ABDOMINAL Diagnosis Active 2011-042012-02-17 Memoria PAIN 0-26 10:42:00 l 00:00: [place] ABDOMINAL 00 PAIN Active 02/07/2012 [facility], [facility] EGD Diagnosis Active 2011-042012-02-06 Mem oria 0-24 10:10:00 l EGD 06:00: Jona 00 Active 02/05/2012 [facility] BLOOD Diagnosis Active 2011-12-11 Mem oria SUGAR 8-16 11:15:00 l PROBLEM BLOOD 15:00: [place] SUGAR 00 PROBLEM Active 11/28/2011 [place] LEFT LOWER Diagnosis Active 2011-12-11 Memoria ABDOMINAL 7-12 10:48:00 l PAIN LEFT 08:00: [place] LOWER 00 ABDOMINAL PAIN Active 10/24/2011 [place] ABDOMINAL Diagnosis Active 2011-12-11 Memoria PAIN HIGH 2-08 11:09:00 l BLOOD 22:00: Jona SUGAR ABDOMINAL 00 PAIN HIGH BLOOD SUGAR Active 05/22/2011 [place] BLEEDING/ Diagnosis Active 2011-12-11 Memoria RT SIDE 1-24 11:06:00 l PAIN 08:00: Jona BLEEDING/ 00 RT SIDE PAIN Active 05/07/2011 [place] RIGHTABDOM Diagnosis Active 2011-04-19 Memoria INAL PAIN 1-06 20:37:00 l . AND 00:00: [place] BLOOD IN RIGHTABDOM 00 URINE INAL PAIN . AND BLOOD IN URINE Active 04/19/2011 [place] RIGHT Diagnosis Active 2011-12-20 Mem oria ABDOMINAL 1-06 13:03:00 l PAIN, RIGHT 00:00: Jona BLOOD IN ABDOMINAL 00 URINE PAIN, BLOOD IN URINE Active 04/19/2011 [place] LOWER ABD Diagnosis Active 2010-042011-12-11 Memoria PAIN/ HIGH 2-12 11:02:00 l SUGAR LOWER 00:00: [place] ABD PAIN/ 00 HIGH SUGAR Active 03/25/2011 [place] CHEST PAIN Diagnosis Active 2010-042011-02-11 Memoria AND 0-30 01:56:00 l TIGHTNESS CHEST 18:00: Jorge Luis n PAIN AND 00 TIGHTNESS Active 02/10/2011 [place] CHEST Diagnosis Active 2010-042011-02-15 Mem oria PAIN, 0-30 21:58:00 l DIZZINESS, CHEST 18:00: Eugenia nn HYPERGLYCE PAIN, 00 EB, UTI DIZZINESS, HYPERGLYCE EB, UTI Active 02/10/2011 [place] CHEST PAIN Diagnosis Active 2010-042011-01-15 Memoria 0-03 16:36:00 l CHEST 15:00: Jona PAIN 00 Active 01/14/2011 [place] RIGHT KNEE Diagnosis Active 2010-12-22 Memoria 1ST 3 TOES 9-10 13:04:00 l NUMB RIGHT 11:00: [place] KNEE 1ST 3 00 TOES NUMB Active 12/22/2010 [place] FACIAL Diagnosis Active 2010-12-22 Mem oria NECK 10-08 13:04:00 l CELLULITIS FACIAL 00:00: Herm ava NECK 00 CELLULITIS Active 10/08/2010 [place] FACIAL AND Diagnosis Active 2010-12-22 Memoria NECK PAIN 10-07 13:04:00 l FACIAL 06:00: Jona AND NECK 00 PAIN Active 10/07/2010 [place] SUGAR Diagnosis Active 2010-12-22 Mem oria HIGH,VAGIN 07-21 13:04:00 l AL SUGAR 00:00: Jona BLEEDING HIGH,VAGIN 00 AL BLEEDING Active 07/21/2010 [place] ABD PAIN Diagnosis Active 2010-12-22 M emoria 01-05 13:04:00 l ABD PAIN 00:00: Jorge Luis n 00 Active 01/05/2010 [facility] EAR PAIN Diagnosis Active 2010-12-22 M emoria 10-09 13:04:00 l EAR PAIN 19:00: Jorge Luis n 00 Active 10/09/2009 [place] UPPER Diagnosis Active 2010-12-22 Mem oria ABDOMINAL 09-20 13:04:00 l PAIN UPPER 14:00: Jona ABDOMINAL 00 PAIN Active 09/20/2009 [place] ABD PAIN, Diagnosis Active 2010-12-22 Memoria HIGH SUGAR - 13:04:00 l ABD 00:00: [place] PAIN, HIGH 00 SUGAR Active 08/15/2009 [place] Abdominal Problem Active 2012-02-19 Me moria pain 09:23:16 l [place] Abdominal pain Active Problem 02/19/2012 [facility], [place], [place] Cellulitis Problem Active 2012-02-19 M emoria 09:23:16 l Jona Cellulitis Active Problem 02/19/2012 [facility] [place], [place] Chest pain Problem Active 2012-02-19 M emoria 09:23:16 l Chest [place] pain Active Problem 02/19/2012 [facility] [place], [place] Hyperglyce Problem Active 2012-02-19 M emoria eb 09:23:16 l [place] Hyperglyce eb Active Problem 02/19/2012 [facility] [place] UTI - Problem Active 2012-02-19 Memor ia Urinary 09:23:16 l tract UTI - Jona infection Urinary tract infection Active Problem 02/19/2012 [facility] [place] Diabetes Problem Active 2017-03-01 Mem oria mellitus 04:36:24 l (disorder) Diabetes He rmann mellitus (disorder) Active Problem 03/01/2017 [facility] Restless Problem Active 2017-03-01 Mem oria legs 04:36:24 l (disorder) Restless He rmann legs (disorder) Active Problem 03/01/2017 [facility] Abdominal Problem Active 2017-03-01 Me moria pain 04:36:24 l (finding) [place] Abdominal pain (finding) Active Problem 03/01/2017 [facility] Chest pain Problem Active 2017-03-01 M emoria (finding) 04:36:24 l Chest Jona pain (finding) Active Problem 03/01/2017 [facility] Hyperglyce Problem Active 2017-03-01 M emoria eb 04:36:24 l (disorder) Jorge Luis n Hyperglyce eb (disorder) Active Problem 03/01/2017 [facility] Urinary Problem Active 2017-03-01 Nirmla feliz tract 04:36:24 l infectious Urinary Her pugh disease tract (disorder) infectious disease (disorder) Active Problem 03/01/2017 [facility] CHEST PAIN Diagnosis Active 2010-12-22 Memoria NOS 13:04:00 l CHEST [place] PAIN NOS Active [place] CELLULITIS Diagnosis Active 2010-12-22 Memoria NOS 13:04:00 l [place] CELLULITIS NOS Active [place] Hyperglyce Problem 2016-2017-03-01 2017-03-01 Memoria eb, -14 04:36:24 04:36:24 l unspecifie 06:00: Jorge Luis n d Hyperglyce 00 eb, unspecifie d 02/25/2017 03/01/2017 [facility] Fever, Problem 2016-2017-03-01 2017-03-01 M emoria unspecifie -14 04:36:24 04:36:24 l d Fever, 06:00: [place] unspecifie 00 d 02/25/2017 03/01/2017 [facility] Radiculopa Problem 2016-2017-02-28 2017-02-28 Memoria thy, 1-14 05:26:25 05:26:25 l cervical 06:00: Jona region Radiculopa 00 thy, cervical region 02/25/2017 02/28/2017 [facility] Displaced Problem 2017-2016-12-30 2016-12-30 Memoria unspecifie 9-15 05:13:20 05:13:20 l d fracture 05:00: Jorge Luis n of right Displaced 00 lesser unspecifie toe(s), d fracture initial of right encounter lesser for closed toe(s), fracture initial encounter for closed fracture 12/30/2016 [facility] Allergies, Adverse Reactions, Alerts Allergy Allergy Status Severity Reaction(s) Onset Inactive Treating Comm ents Source Name Type Date Date Clinician Poli Jonesensi Active [facility] - adverse [facility]: Medical reaction [facility] Center s Ritalin Ritalin Active Emmanuelle Tenorio Social History Social Habit Start Date Stop Date Quantity Comments Source Sex Assigned At [facility] Tobacco use and 2017-10-06 2017-10-06 Never used [facility] kes - exposure 00:00:00 00:00:00 [facility] Alcohol intake 2017-10-06 2017-10-06 Current [facility] - 00:00:00 00:00:00 non-drinker of Medical Ce nter alcohol (finding) Social History 2017-02-03 2017-02-03 [facility] hermila 15:24:44 15:24:44 Smoking Status Start Date Stop Date Source Never smoker [facility] Medications Ordered Filled Start Stop Current Ordering Indication Dosage Frequency Signature Comments Components Source Medication Medication Date Date Medication? Clinician (SIG) Name Name rOPINIRole 2018 Yes 1mg [id number] Take [address] [facility] (REQUIP) 1 3-26 [id number] by mouth 3 [facility] - MG tablet 12:00: 3D (three) Medic al 28 times Center daily. pregabalin Yes 50mg [id number] Take [address] [facility] (LYRICA) 50 3-26 [id number] by mouth 3 [facility] - MG capsule 12:00: 3D (three) Medi steven 28 times Center daily. GI cocktail 2016-04 No Notes: Nirmal feliz 1-15 G.I. l 05:06: Cocktail = [place] 00 antacid with simethicon e 22.5 mL [...] Notes: Memoria 1-15 (Same l 02:34: as:MORPhin [place] 00 e Sulfate) Lidocaine 2016-04 Yes Notes: Memori a Hydrochlori 1-15 Preservati l de 10 MG/ML 02:33: ve free. He rmann Injectable 00 (Same as: Solution Xylocaine MPF) Insulin 2016-04 No 60 Memoria regular 1-15 units) l 02:23: WASTE: F/P [place] 00 - Black; E - Municipal Trash Bin Stable for 28 days at room temperatur e Expires in days from ____Date Sodium 2016-04 No 2,000 mL, Memori a Chloride 1-15 1000 l 0.9% 02:22: ml/hr, Jona (Bolus) IV 00 Infuse Over: 2 hr, Route: IV, 2,000, Drug form: INJ, ONCE, Priority: STAT, Dosing Weight 49.545 kg, Start date: 02/25/17 20:22:00 [employer], Stop date: 02/25/17 20:22:00 [employer] ibuprofen 2016-04 Yes 800 mg = 1 Me moria 800 mg oral 1-14 tab, PO, l tablet 07:20: Q8H, PRN [place] 00 Pain, Take with food, X 5 day, # 15 tab, 0 Refill(s) Acetaminoph 2016-04 Yes 1 - 2 tab, Memoria en 300 MG / 1-14 PO, Q4H, l Codeine 07:20: PRN Pain, Eugenia nn Phosphate 00 X 3 day, # 30 MG Oral 20 tab, 0 Tablet Refill(s) [Tylenol with Codeine #3] Cyclobenzap 2016-04 Yes 5 mg = 1 Me moria rine -14 tab, PO, l hydrochlori 07:17: TID, X 7 He rmann de 5 MG 00 day, # 21 Oral Tablet tab, 0 [Flexeril] Refill(s) Valium 2016-04 No Notes: Memoria 14 (Same as: l 05:48: Valium) [place] 00 Ketorolac 2016-04 No 4 days Memor ia -14 l 05:48: MEDICATION WASTE Product Size: 30 mg Product Wasted: ___ mg Ciprofloxac 2016-04 Yes 500 mg = 1 Memoria in 500 MG 0-15 tab, PO, l Oral Tablet 14:57: Q12H, for H ermann [Cipro] 00 UTI, X 3 day, # 6 tab, 0 Refill(s), Pharmacy: [facility] #[id number] Humalog 100 2016-04 Yes 4 unit, Mem oria units/mL 0-15 SUB-Q, l 14:48: TID-Before 00 Meals, hold insulin injection if your blood sugar is less than 140 mg/dL., # 10 mL, 0 Refill(s), Pharmacy: [facility] #[id number] pantoprazol 2016-04 Yes 40 mg = 1 M emoria e 40 MG 0-15 tab, PO, l Enteric 14:48: Daily, # Jorge Luis n Coated 00 30 tab, 0 Tablet Refill(s), [Protonix] Pharmacy: [facility] #[id number] Calcium 2016-04 Yes 500 mg = 1 Nirmal feliz Carbonate 0-15 tab, PO, l 500 MG 14:48: TID, # 6 [place] Chewable 00 tab, 0 Tablet Refill(s), Pharmacy: [facility] #[id number] Insulin 2016-04 Yes 15 unit, Memori a Glargine 0-15 SUB-Q, l 100 UNT/ML 14:48: Daily, # Her pugh Injectable 00 10 mL, 0 Solution Refill(s), [Lantus] Pharmacy: [facility] #[id number] Calcium 2016-04 No Notes: Memoria Gluconate 0-15 [...] Memoria 0-15 (Same as: l 02:00: Requip) [place] 00 Lyrica 2016-04 No Notes: Memoria 0-15 (Same as: l 02:00: Lyrica) Jona 00 Calcium 2016-04 No Notes: Memoria Carbonate 0-14 (Same As: l 22:40: Tums) [place] 00 Calcium Carbonate 500 mg = 200 mg elemental calcium Dose = mg calcium carbonate ( mg elemental calcium) Protonix 2016-04 No Notes: Memoria 0-14 Tablet l 22:00: should not [place] 00 be chewed or crushed. (Same as: Protonix) Magnesium 2016-04 No Notes: Memori a Oxide 0-14 (Same as: l 22:00: Mag-Ox Jona 00 400) Magnesium oxide [id number] g elemental magnesium Dose=____m g magnesium oxide [...] Lispro 0-14 units) l 09:50: WASTE: F/P [place] 00 - Black; E - Municipal Trash [...] 0-14 Route: IM, l 06:35: Drug form: [place] 00 PDR/INJ, PRN, Dosing Weight 51.449, kg, PRN Blood Glucose Results, Start date: 01/25/17 1:35:00 CDT, Duration: 30 day, Stop date: 02/24/17 0:34:00 [employer] Insulin 2016-04 No 60 Memoria Lispro 0-14 units) l 06:35: WASTE: F/P [place] 00 - Black; E - Municipal Trash Bin Stable for 28 days at room temperatur e. Expires in days from ____Date Dextrose 2016-04 No 25 gm, 50 Nirmal feliz 50% Syringe 0-14 mL, Route: l 06:35: IVP, Drug [place] 00 Form: INJ, Dosing Weight 51.449, kg, PRN, PRN Blood Glucose Results, Start date: 01/25/17 1:35:00 CDT, Duration: 30 day, Stop date: 02/24/17 0:34:00 [employer] Acetaminoph 2016-04 No Notes: Do M emoria en 0-14 not exceed l 06:32: 4 gm/day. Jona (Same as: Tylenol) Acetaminoph 2016-04 No Notes: Nirmal feliz en 325 MG / 0-14 (Same as: l Hydrocodone 06:32: [place] Eugenia nn Bitartrate 00 325/5) Do 5 [...] 01/25/17 1:32:00 CDT, Stop date: 02/24/17 1:31:00 [employer] Saline 2016-04 No Notes: Memoria Flush [...] Memoria 0-14 Route: l 03:07: IVP, Drug [place] 00 form: INJ, ONCE, Dosing Weight 52.273, kg, Priority: STAT, Start date: 01/24/17 22:07:00 CDT, Stop date: 01/24/17 22:07:00 CDT Morphine 2016-04 No Notes: Memoria 0-14 (Same l 02:12: as:MORPhin Jona 00 e Sulfate) Acetaminoph No 1 - 2 tab, Memoria en 300 MG / -15 PO, Q4H, l Codeine 05:54: PRN Pain, Eugenia nn Phosphate 00 X 2 day, # 30 MG Oral 30 tab, 0 Tablet Refill(s) [Tylenol with Codeine #3] Acetaminoph No Notes: Nirmal feliz en 325 MG / 9-15 (Same as: l Hydrocodone 04:47: [place] Eugenia nn Bitartrate 00 325/5) Do 5 MG Oral not exceed Tablet 4gm/day of [[place] acetaminop 5/325] hen. insulin Yes QD Inject [...] Nirmal feliz 11-28 on Allowed l 03:29: [place] Insulin No Vimi 7 unit, Memoria regular [...] 11-28 Roche Rate: l 0.9% 02:51: 1,000 [place] (Bolus) IV 00 ml/hr, 1,000 mL Infuse over: 1 hr, Route: IVPB, kg, Total Volume: 1,000, Bolus Dose, Priority: STAT, Start date: 11/28/11 21:51:00, Duration: 1 doses or times, Stop date: 11/28/11 22:50:00 Saline No Vimi 5 ml, Memoria Flush 0.9% 11-28 Roche Route: l 02:51: IVP, Drug [place] 00 Form: INJ, kg, PRN, PRN Line Flush, Start date: 11/28/11 21:51:00, Duration: 30 day, Stop date: 12/28/11 21:50:00 [place] 5/325 2011-0 Yes Juan 1-2 tab, M [...] 2-09 Roche Route: l 07:52: IVP, ONCE, [place] 00 Start date: 05/23/11 1:52:00, Stop date: 05/23/11 1:52:00 Insulin 2011-0 No Vimi 5 unit, Memoria regular 2-09 Roche 0.05 mL, l 07:10: Route: Jona IVP, Drug form: SOLN, ONCE, Priority: STAT, Start date: 05/23/11 1:10:00, Stop date: 05/23/11 1:10:00 Visipaque 2011-0 Yes Vimi 32,000 mg, Me moria 2-09 Roche 100 mL, l 05:47: Route: IV, [place] Drug form: INJ, ONCE, Start date: 05/22/11 23:47:00, Stop date: 05/22/11 23:47:00 Insulin 2011-0 No Vimi 5 unit, Memoria regular 2-09 Roche 0.05 mL, l 05:36: Route: [place] 00 SUB-Q, Drug form: SOLN, ONCE, Priority: STAT, Start date: 05/22/11 23:36:00, Stop date: 05/22/11 23:36:00 morphine 2011-0 No Vimi 2 mg, 0.4 Nirmal feliz Sulfate 05-23 Roche mL, Route: l 05:04: IVP, Drug form: INJ, ONCE, Priority: STAT, Start date: 05/22/11 23:04:00, Stop date: 05/22/11 23:04:00 ondansetron No Vimi 4 mg, 2 Mem oria [...] or times, Stop date: 05/22/11 23:33:00 Saline 2011- No Vimi 5 ml, Memoria Flush 0.9% 05-23 Roche Route: l 05:04: IVP, Drug Form: INJ, PRN, PRN Line Flush, Start date: 05/22/11 23:04:00, Duration: 24 hr, Stop date: 05/23/11 23:03:00 Pyridium 2011-0 Yes Sonal 200 mg, 1 Me moria 200 mg oral 1-25 Raulito tab, PO, l tablet 02:08: TID, 9 Jona 33 tab, Substituti on Allowed Cipro 500 2011- Yes Sonal 500 mg, 1 M emoria [...] 1-25 Raulito tab, l 02:03: Route: PO, Drug form: TAB, ONCE, Priority: [...] ing Nausea and Vomiting, Substituti on Allowed [place] Yes Juan 1 tab, PO, Memor ia 10/325 oral 04-20 Keith Q4-6H, l tablet 06:55: Yeaton PRN, 24 Jorge Luis n 26 tab, as needed for pain, Substituti on Allowed, Maintenanc e hydromorpho No Juan 1 mg, 0.5 Memoria ne 1-07 Keith mL, Route: l 05:38: Yeaton IVP, Drug Jorge Luis n 00 form: INJ, ONCE, Priority: STAT, Start date: 04/19/11 23:38:00, Stop date: 04/19/11 23:38:00 Insulin No Juan 10 unit, Memor ia regular 07 Keith 0.1 mL, l 05:31: Yeaton Route: IVP, Drug form: SOLN, ONCE, Priority: STAT, Start date: 04/19/11 23:31:00, Stop date: 04/19/11 23:31:00 Sodium 2011-0 No Juan 1,000 mL, Memor ia Chloride 1-07 Keith Rate: l 0.9% 03:30: Yeaton 1,000 [place] (Bolus) IV 00 ml/hr, 1,000 mL Infuse [...] gm, PO, M emoria oral powder 2-13 [place] Daily, 255 l for 05:57: gm, [place] reconstitut 18 Substituti ion on Allowed, PDR/REC Phenergan 2010-04 Yes Mila 25 mg, 1 M emoria 25 mg oral 2-13 [place] tab, PO, l tablet 05:57: Q6H, PRN, Jorge Luis n 09 15 tab, Nausea, Substituti on Allowed Vicodin 2010-04 Yes Mila 1 tab, PO, M emoria 5/500 oral 2-13 Zay [place]hel[place] Q4-6H, l tablet 05:57: PRN, 24 [place] 05 tab, for Pain, Substituti on Allowed, [...] Mila 10 unit, Mem oria regular 2-13 [place] 0.1 mL, l 03:16: Route: [place] 00 IVP, Drug form: SOLN, ONCE, Priority: STAT, Start date: 03/25/11 21:16:00, Stop date: 03/25/11 21:16:00 Omnipaque 2010-04 Yes Mila 30,000 mg, Memoria 300 2-13 [place] 100 mL, l 03:15: Route: IV, Jona 00 Drug form: SOLN, ONCE, Start date: 03/25/11 21:15:00, Stop date: 03/25/11 21:15:00 Saline 2010-04 No Mila 5 ml, Memoria Flush 0.9% 2-13 [place] Route: l 02:19: IVP, Drug Form: INJ, PRN, PRN Line Flush, Start date: 03/25/11 20:19:00, Duration: 30 day, Stop date: 04/24/11 20:18:00 ondansetron 2010-04 No Mila 4 mg, 2 Memoria 2-13 [place] mL, Route: l 02:19: IVP, Drug form: INJ, ONCE, Priority: STAT, Start date: 03/25/11 20:19:00, Stop date: 03/25/11 20:19:00 morphine 2010-04 No Mila 4 mg, 0.8 M emoria Sulfate 2-13 Zay [place]hel[place] mL, Route: l 02:19: IVP, Drug [place] 00 form: INJ, ONCE, Priority: STAT, Start date: 03/25/11 20:19:00, Stop date: 03/25/11 20:19:00 nitroglycer 2010-04 No 0.4 mg, 1 M emoria in 0.4 mg 0-31 tab, SL, l sublingual 17:47: Q5Min, Eugenia nn tablet 03 PRN, as needed for chest pain, Substituti on Allowed aspirin 81 2010-04 Yes 1 tab, PO, M emoria mg tablet, 0-31 Daily, l chewable 17:29: tab, [place] 44 Substituti on Allowed, CHEWTAB Cipro 2010-04 No Dk 250 mg, 1 Memori a 0-31 Ari tab, l 16:00: [place] Route: PO, Herm ava 00 Drug form: TAB, [id number], Start date: 02/11/11 11:00:00, Duration: 30 day, Stop date: 03/12/11 23:00:00 magnesium 2010-04 No [place] 400 mg, 1 M emoria oxide 0-31 Minhvu Victoriano tab, l 14:00: [place] Route: PO, [place] 00 Drug form: TAB, Daily, Start date: 02/11/11 9:00:00, Duration: 30 day, Stop date: 03/12/11 9:00:00 Lantus 2010-04 No Dk 70 unit, Memori a 0-31 Ari Route: l 14:00: Jonathan SUB-Q, [place] Drug form: SOLN, Daily, Start date: 02/11/11 9:00:00, Duration: 30 day, Stop date: 03/12/11 9:00:00 Levemir 2010-04 No Dk 70 unit, Memor ia FlexPen 0-31 Ari 0.7 mL, l 14:00: Jonathan Route: [place] 00 SUB-Q, Drug form: INJ, Daily, Start [...] PO, Herm ava 00 Drug form: TAB, [id number], Start date: 02/11/11 3:00:00, Duration: 30 day, [...] No Dk 5 ml, Memoria Flush 0.9% 0- Ari Route: l 07:05: Jonathan IVP, Drug [...] Dk 2 mg, 0.4 Mem oria Sulfate 0 Ari mL, Route: l 07:05: Jonathan IVP, [...] Dk 25 mg, 1 M emoria MINE 031 Ari tab, l 07:05: Jonathan Route: PO, [...] Shauna mL, Route: l 05:37: IVP, Drug [place] 00 form: INJ, ONCE, Priority: STAT, Start date: 02/11/11 0:37:00, Stop date: 02/11/11 0:37:00 Visipaque 2010-04 No Penelope S 48,000 mg, Memoria 0-31 Shauna 150 mL, l 04:55: Route: IV, Jona Drug form: INJ, ONCE, Start date: 02/10/11 23:55:00, Stop date: 02/10/11 23:55:00 Zofran 2010-04 No Penelope S 4 mg, 2 Memori a 0-31 Shauna mL, Route: l 04:28: IVP, Drug [place] form: INJ, ONCE, Start date: 02/10/11 23:28:00, Stop date: 02/10/11 23:28:00 Cipro 2010-04 No Penelope S 400 mg, Memoria 0-31 Shauna Route: l 04:08: IVPB, [place] 00 ONCE, Priority: STAT, Start date: 02/10/11 [...] Shauna Route: l SF 02:55: IVP, Drug [place] 00 Form: INJ, PRN, PRN Line Flush, Start date: 02/10/11 21:55:00, Duration: 30 day, Stop date: 03/12/11 20:54:00 aspirin 325 2010-04 No Penelope S 325 mg, M emoria mg tablet 0-31 Shauna Route: PO, l 02:47: Drug form: [place] 00 TAB, ONCE, Priority: STAT, Start date: 02/10/11 21:47:00, Stop date: 02/10/11 21:47:00 metoprolol 2010-04 No Penelope S 50 mg, Mem oria tartrate 0-31 Shauna Route: PO, l 02:47: Drug form: [place] 00 TAB, ONCE, (Hold if SBP < = 90 mmHg or if < = 100mmHg with symptomati c dizziness, or if HR < = 55), Start date: 02/10/11 21:47:00, Stop date: 02/10/11 21:47:00 nitroglycer 2010-04 No Penelope S 0.5 inch, Memoria in 2% 0-31 Shauna Route: l ointment 02:47: TOP, Drug Form: OINT, ONCE, STAT, Start date: 02/10/11 21:47:00, Stop date: 02/10/11 21:47:00 nitroglycer 2010-04 No Penelope S 0.4 mg, 1 Memoria in 0-31 Shauna tab, l 02:47: Route: SL, [place] Drug form: TAB, Q5Min, PRN Chest Pain, (Hold if SBP < = 90 mmHg or if < = 100mmHg with symptomati c dizziness) , Start date: 02/10/11 21:47:00, Duration: 3 doses or times, Stop date: Limited # of times morphine 2010-04 No Penelope S 2 mg, Memori a Sulfate 0-31 Shauna Route: l 02:47: IVP, ONCE, [place] 00 Priority: STAT, Start date: 02/10/11 21:47:00, [...] Q12H, l tablet 15:37: Edwards 30 tab, [place] 31 Substituti on Allowed, TAB aspirin 325 [...] Q4H, PRN, l 14:18: [place] 30 tab, [place] 21 Headache, Substituti on Allowed, Maintenanc e, [...] l enteric 14:00: [place] Route: PO, Herm vaa coated 00 Drug form: ECTAB, Daily, Start [...] Victoriano Route: l 02:00: [place] IVP, Drug [place] Form: INJ, Q12H, Start date: 01/14/11 21:00:00, Duration: 30 day, Stop date: 02/13/11 9:00:00 Levemir 2010-04 Beth Duncan 70 unit, Nirmal feliz FlexPen 0-04 Minhvu Victoriano 0.7 mL, l 02:00: [place] Route: [place] 00 SUB-Q, Drug form: INJ, Bedtime, Start date: 01/14/11 21:00:00, Duration: 30 day, Stop date: 02/12/11 21:00:00 Lantus 2010-04 Beth Duncan 70 unit, Memor ia 0-04 Minhvu Victoriano Route: l 02:00: [place] SUB-Q, [place] 00 Bedtime, Start date: 01/14/11 21:00:00, Duration: 30 day, Stop date: 02/12/11 21:00:00 glucagon 2010-04 Beth Duncan 1 mg, Memori a 0-04 Minhvu Victoriano Route: IM, l 00:22: [place] Drug form: [place] 00 PDR/INJ, PRN, PRN Blood Glucose Results, [...] Victoriano tab, l 00:21: [place] Route: SL, [place] 00 Drug form: TAB, Q5Min, PRN Chest [...] Victoriano cap, l 00:21: [place] Route: PO, [place] 00 Drug form: CAP, Bedtime, PRN Insomnia, [...] Davis Route: PO, l 22:08: Drug Form: [place] 00 SUSP, ONCE, Routine, Start date: 01/14/11 17:08:00, Stop date: 01/14/11 17:08:00 NS (Bolus) 2010-04 No Moise G 1,000 mL, Memoria IV 1,000 mL 0-03 Davis Rate: l 22:07: 1,000 Jona 00 ml/hr, Infuse over: 1 hr, Route: IV, Total Volume: 1,000, Priority: STAT, Start date: 01/14/11 17:07:00, Duration: 1 doses or times, Stop date: 01/14/11 18:06:00, Bolus DoseBolus Dose Saline 2011-1 No Moise G 5 ml, Memoria Flush 0.9% 0-03 Davis Route: l 20:20: IVP, Drug [place] 00 Form: INJ, PRN, PRN Line Flush, Start date: 01/14/11 15:20:00, Duration: 30 day, Stop date: 02/13/11 15:19:00 ibuprofen Yes Sonal 1 tab, PO, Memoria 400 mg oral 9-10 Raulito Q4H, PRN, l tablet 18:32: 20 tab, [place] 59 Pain, Substituti on Allowed acetaminoph Yes Sonal 1 tab, PO, Memoria en-hydrocod 9-10 Raulito Q4-6H, l one 500 18:32: PRN, 20 [place] mg-5 mg 50 tab, Pain, oral tablet [...] Diastolic (mm Hg) 2017-02-26 06:50:00 Mem orial [place] Respitory Rate 2017-02-26 06:50:00 Memori al [place] Temperature Oral (F) 2017-02-26 06:50:00 97.6 F [facility] [place]ona Heart Rate 2017-02-26 06:50:00 [facility] [place] Respitory Rate 2017-02-26 04:30:00 Memori al [place] Systolic (mm Hg) 2017-02-26 04:30:00 Nirmal rial [place] Diastolic (mm Hg) 2017-02-26 04:30:00 Mem orial [place] Heart Rate 2017-02-26 04:30:00 [facility] [place] Temperature Oral (F) 2017-02-26 00:55:00 98.8 F [facility] [place] Weight 2017-02-26 00:55:00 [facility] [place] BMI Calculated 2017-02-26 00:55:00 Memori al [place] Height 2017-02-26 00:55:00 162.56 cm [facility] [place] Systolic (mm Hg) 2017-02-26 00:55:00 [facility] Diastolic (mm Hg) 2017-02-26 00:55:00 [facility] Heart Rate 2017-02-26 00:55:00 [facility] Respitory Rate 2017-02-26 00:55:00 [facility] Respitory Rate 2017-02-25 07:35:00 [facility] Systolic (mm Hg) 2017-02-25 07:35:00 [facility] [place] Diastolic (mm Hg) 2017-02-25 07:35:00 [facility] Temperature Oral (F) 2017-02-25 07:35:00 98.2 F [facility] Heart Rate 2017-02-25 07:35:00 [facility] BMI Calculated 2017-02-25 05:05:00 [facility] Weight 2017-02-25 05:05:00 [facility] Height 2017-02-25 05:05:00 162.56 cm [facility] Heart Rate 2017-02-25 05:05:00 [facility] Respitory Rate 2017-02-25 05:05:00 [facility] Temperature Oral (F) 2017-02-25 05:05:00 97.8 F [facility] Systolic (mm Hg) 2017-02-25 05:05:00 [facility] Diastolic (mm Hg) 2017-02-25 05:05:00 [facility] Weight 2017-02-25 04:55:00 [facility] Height 2017-02-25 04:55:00 167.64 cm [facility] Temperature Oral (F) 2017-02-25 04:55:00 97.8 F [facility] BMI Calculated 2017-02-25 04:55:00 [facility] Systolic (mm Hg) 2017-02-25 04:55:00 [facility] Diastolic (mm Hg) 2017-02-25 04:55:00 [facility] Respitory Rate 2017-02-25 04:55:00 [facility] Heart Rate 2017-02-25 04:55:00 [facility] Temperature Oral (F) 2017-01-26 16:47:00 98.5 F [facility] Heart Rate 2017-01-26 16:47:00 [facility] Respitory Rate 2017-01-26 16:47:00 [facility] Systolic (mm Hg) 2017-01-26 16:47:00 [facility] Diastolic (mm Hg) 2017-01-26 16:47:00 [facility] Heart Rate 2017-01-26 12:26:00 [facility] Respitory Rate 2017-01-26 12:26:00 [facility] Temperature Oral (F) 2017-01-26 12:26:00 98.4 F [facility] Systolic (mm Hg) 2017-01-26 12:26:00 [facility] Diastolic (mm Hg) 2017-01-26 12:26:00 [facility] Temperature Oral (F) 2017-01-26 09:50:00 98.1 F [facility] Heart Rate 2017-01-26 09:50:00 [facility] Systolic (mm Hg) 2017-01-26 09:50:00 [facility] Diastolic (mm Hg) 2017-01-26 09:50:00 [facility] Respitory Rate 2017-01-26 09:50:00 [facility] Height 2017-01-25 05:58:00 157.48 cm [facility] Weight 2017-01-25 05:58:00 [facility] BMI Calculated 2017-01-25 05:58:00 [facility] Weight 2017-01-25 02:01:00 [facility] BMI Calculated 2017-01-25 02:01:00 [facility] Height 2017-01-25 02:01:00 162.56 cm [facility] Systolic (mm Hg) 2016-12-27 06:03:00 [facility] Diastolic (mm Hg) 2016-12-27 06:03:00 [facility] Respitory Rate 2016-12-27 06:03:00 [facility] Heart Rate 2016-12-27 06:03:00 [facility] Temperature Oral (F) 2016-12-27 06:03:00 98.3 F [facility] Temperature Oral (F) 2016-12-27 04:22:00 98.4 F [facility] Respitory Rate 2016-12-27 04:22:00 [facility] Systolic (mm Hg) 2016-12-27 04:22:00 [facility] Diastolic (mm Hg) 2016-12-27 04:22:00 [facility] BMI Calculated 2016-12-27 04:22:00 [facility] Weight 2016-12-27 04:22:00 [facility] Heart Rate 2016-12-27 04:22:00 [facility] Height 2016-12-27 04:22:00 162.56 cm [facility] Height 2012-02-06 15:19:00 162.56 cm [facility] Weight 2012-02-06 15:19:00 [facility] Height 2011-11-29 02:35:00 162.56 cm [facility] Weight 2011-11-29 02:35:00 [facility] Height 2011-10-25 02:45:00 162.56 cm [facility] Weight 2011-10-25 02:45:00 [facility] Height 2011-05-23 04:48:00 162.56 cm [facility] Weight 2011-05-23 04:48:00 [facility] Temperature Oral (F) 2011-05-08 02:38:00 98.5 F [facility] Diastolic (mm Hg) 2011-05-08 02:38:00 [facility] Systolic (mm Hg) 2011-05-08 02:38:00 [facility] Heart Rate 2011-05-08 02:38:00 [facility] Respitory Rate 2011-05-08 02:38:00 [facility] Weight 2011-05-08 00:09:00 [facility] Height 2011-05-08 00:09:00 162.56 cm [facility] Temperature Oral (F) 2011-05-08 00:09:00 98.6 F [facility] Diastolic (mm Hg) 2011-05-08 00:09:00 [facility] Systolic (mm Hg) 2011-05-08 00:09:00 [facility] Heart Rate 2011-05-08 00:09:00 [facility] Respitory Rate 2011-05-08 00:09:00 [facility] Respitory Rate 2011-04-20 07:05:00 [facility] Heart Rate 2011-04-20 07:05:00 [facility] Diastolic (mm Hg) 2011-04-20 07:05:00 [facility] Systolic (mm Hg) 2011-04-20 07:05:00 [facility] Diastolic (mm Hg) 2011-04-20 06:01:00 [facility] Heart Rate 2011-04-20 06:01:00 [facility] Systolic (mm Hg) 2011-04-20 06:01:00 [facility] Respitory Rate 2011-04-20 06:01:00 [facility] Weight 2011-04-20 02:25:00 [facility] Systolic (mm Hg) 2011-04-20 02:25:00 [facility] Temperature Oral (F) 2011-04-20 02:25:00 98.0 F [facility] Respitory Rate 2011-04-20 02:25:00 [facility] Heart Rate 2011-04-20 02:25:00 [facility] Diastolic (mm Hg) 2011-04-20 02:25:00 [facility] Temperature Oral (F) 2011-03-26 06:05:00 98.0 F [facility] Respitory Rate 2011-03-26 06:05:00 [facility] Heart Rate 2011-03-26 06:05:00 [facility] Systolic (mm Hg) 2011-03-26 06:05:00 [facility] Diastolic (mm Hg) 2011-03-26 06:05:00 [facility] Height 2011-03-26 01:58:00 160.02 cm [facility] Weight 2011-03-26 01:58:00 [facility] Temperature Oral (F) 2011-03-26 01:58:00 99.0 F [facility] Diastolic (mm Hg) 2011-03-26 01:58:00 [facility] Systolic (mm Hg) 2011-03-26 01:58:00 [facility] Respitory Rate 2011-03-26 01:58:00 [facility] Heart Rate 2011-03-26 01:58:00 [facility] Diastolic (mm Hg) 2011-02-11 15:37:00 [facility] Respitory Rate 2011-02-11 15:37:00 [facility] Systolic (mm Hg) 2011-02-11 15:37:00 [facility] Heart Rate 2011-02-11 15:37:00 [facility] Temperature Oral (F) 2011-02-11 15:37:00 98.1 F [facility] Diastolic (mm Hg) 2011-02-11 11:53:00 [facility] Systolic (mm Hg) 2011-02-11 11:53:00 [facility] Temperature Oral (F) 2011-02-11 11:53:00 97.5 F [facility] Heart Rate 2011-02-11 11:53:00 [facility] Respitory Rate 2011-02-11 11:53:00 [facility] Height 2011-02-11 07:38:00 162.56 cm [facility] Weight 2011-02-11 07:38:00 [facility] Respitory Rate 2011-02-11 07:38:00 [facility] Temperature Oral (F) 2011-02-11 07:38:00 98.0 F [facility] Heart Rate 2011-02-11 07:38:00 [facility] Systolic (mm Hg) 2011-02-11 07:38:00 [facility] Diastolic (mm Hg) 2011-02-11 07:38:00 [facility] Weight 2011-02-11 02:32:00 [facility] Height 2011-02-11 02:32:00 162.56 cm [facility] Diastolic (mm Hg) 2011-01-15 16:44:00 [facility] Systolic (mm Hg) 2011-01-15 16:44:00 [facility] Temperature Oral (F) 2011-01-15 16:44:00 97.0 F [facility] Heart Rate 2011-01-15 16:44:00 [facility] Respitory Rate 2011-01-15 16:44:00 [facility] Temperature Oral (F) 2011-01-15 12:18:00 97.2 F [facility] Respitory Rate 2011-01-15 12:18:00 [facility] Heart Rate 2011-01-15 12:18:00 [facility] Diastolic (mm Hg) 2011-01-15 12:18:00 [facility] Systolic (mm Hg) 2011-01-15 12:18:00 [facility] Respitory Rate 2011-01-15 09:30:00 [facility] Systolic (mm Hg) 2011-01-15 09:30:00 [facility] Heart Rate 2011-01-15 09:30:00 [facility] Temperature Oral (F) 2011-01-15 09:30:00 97.9 F [facility] Diastolic (mm Hg) 2011-01-15 09:30:00 [facility] Height 2011-01-15 01:35:00 162.56 cm [facility] Weight 2011-01-15 01:35:00 [facility] Height 2011-01-14 20:07:00 162.56 cm [facility] Weight 2011-01-14 20:07:00 [facility] Systolic (mm Hg) 2010-12-22 18:51:00 [facility] Diastolic (mm Hg) 2010-12-22 18:51:00 [facility] Peripheral Pulse Rate 2010-12-22 18:51:00 [facility] Respitory Rate 2010-12-22 18:51:00 [facility] Height 2010-12-22 16:57:00 162.56 cm [facility] Weight 2010-12-22 16:57:00 [facility] Temperature Oral (F) 2010-12-22 16:57:00 98.2 F [facility] Respitory Rate 2010-12-22 16:57:00 [facility] Peripheral Pulse Rate 2010-12-22 16:57:00 [facility] Diastolic (mm Hg) 2010-12-22 16:57:00 [facility] Systolic (mm Hg) 2010-12-22 16:57:00 [facility] Procedures Procedure Date / Time Performed Performing Clinician [facility] e Appendectomy [facility] Cholecystectomy [facility] Partial hysterectomy [facility] Plan of Care Planned Activity Planned Date Details Comments Source Future Scheduled 2019-12-[address] [facility] - Test 00:00:00 (#1) [code = [facility] INFLUENZA VACCINE (#1)] Future Scheduled [address] [facility] 00:00:00 (procedure) [code = [facility] 84916456] Future Scheduled [address] [facility]:00:00 malignant neoplasm [facility] enter of cervix (procedure) [code = 374859094] Future Scheduled [address] [facility] Test 00:00:00 malignant neoplasm [facility] enter of breast (procedure) [code = 911056343] Future Scheduled [address] [facility] Test 00:00:00 malignant neoplasm Medical [facility] enter of colon (procedure) [code = 294983402] Encounters Start End Encounter Admission Attending Care Care Encounter Source Date/Time Date/Time Type Type Clinicians Facility Department ID 2018-11-26 2018-11-26 [id number] 11:32:46 15:11:00 Edgard Medley [id number] [place] [id number] [place] [id number] 2018-11-26 2018-11-26 Orders Doctor RASHID [id number] 00:00:00 00:00:00 Only Unassigned, [place] [id number] [place] [facility] [id number] 2017-02-25 2017-02-26 Outpatient Quezada, 2.16.840. 2.16.840.1. 4 [id number] 18:38:00 00:55:00 Rudolph [id number] 03 [place] 3.615.120 5.120 2017-02-24 2017-02-25 Outpatient Quezada, 2.16.840. 2.16.840.1. 4 [id number] 22:49:00 01:35:00 Rudolph [id number] 02 [place] 3.615.120 5.120 2017-01-24 2017-01-26 Outpatient Kayla, 2.16.840. 2.16.840.1 . [id number] 20:53:00 14:35:00 Greg Giron [id number] 01 3.615.120 5.120 2016-12-26 2016-12-27 Outpatient Davis, 2.16.840. 2.16.840.1. 4 [id number] 23:03:00 01:05:00 Moise Rojas [id number]. [id number] 3.615.120 5.120 Results Test Description Test Time Test Comments Results Result Comments Source POCT-GLUCOSE METER 2017-10-07 11:53:00 Test Item Value Reference Range Interpretation Comme nts POC-GLUCOSE METER (BEAKER) (test 277 mg/dL 70-110 H TESTED AT [address] POINT code = 1538) [address] [facility] [address] POCT-GLUCOSE [id number] 11:53:00 Test Item Value Reference Range Interpretation Comments POC-GLUCOSE METER 411 mg/dL 70-110 HH TESTED AT [address] (BEAKER) (test code [address] [facility] [place] = 1538) [address] RAD, SPINE, CERVICAL, 2 OR 3 [id number] 23:46:00Reason for exam:->neck painFINAL REPORT RAD, SPINE, [...] MDReport Verified Date/Time: 10/06/2017 23:46:30 Reading Location: [address] Transitional Reading Room CT, SPINE, CERVICAL, [...] MDReport Verified Date/Time: 10/06/2017 23:44:40 Reading Location: [address] Transitional Reading Room CT, BRAIN, WITHOUT [...] MDReport Verified Date/Time: 10/06/2017 23:24:44 Reading Location: [address] Reading Room TROPONIN I 2017-10-06 22:56:00 [...] acute neurological disease, and persistent tachyarrhythmia.COMPREHENSIVE METABOLIC [id number] 22:50:00 Test Item Value Reference Range Interpretation [...] S NOT APPLICABLE FOR DIALYSIS PATIEN TS. [id number] 22:42:00 Test Item Value Reference Range Interpretation Comments AMYLASE (BEAKER) (test code = 349) 58 U/L 30-110 CBC W/PLT COUNT & AUTO [id number] 22:22:00 Test Item Value Reference Range Interpretation [...] 0.00-0.20 (test code = 417) URINALYSIS W/ [id number] 22:09:00 Test Item Value Reference Range Interpretation [...] code = 1663) SOURCE(BEAKER) (test code = 7165) POCT-GLUCOSE [id number] 07:19:00 Test Item Value Reference Range Interpretation Comments POC-GLUCOSE METER 241 mg/dL 70-110 H TESTED AT [address] (ANTHONY) (test code [address] [facility] = 5807) [address] CT, [id number] 19:16:00FINAL REPORT CT OF THE ABDOMEN AND [...] MDReport Verified Date/Time: 09/22/2017 19:16:29 Reading Location: [facility] C013W Consult Reading Room BASIC METABOLIC [id number] 17:37:00 Test Item Value Reference Range Interpretation [...] NOT APPLICABLE FOR DIALYSIS PATIEN TS. TROPONIN [id number] 17:07:00 Test Item Value Reference Range Interpretation [...] (test code = 749) 26 U/L 6-51 [id number] 16:51:00 Test Item Value Reference Range Interpretation Comments AMYLASE (BEAKER) (test 32 U/L 30-110 Speci men markedly code = 349) hemolyzed URINALYSIS W/ [id number] 16:21:00 Test Item Value Reference Range Interpretation [...] = 2795) CBC W/PLT COUNT & AUTO [id number] 16:15:00 Test Item Value Reference Range Interpretation [...] L 0.00-0.20 (test code = 417) POCT-GLUCOSE [id number] 15:36:00 Test Item Value Reference Range Interpretation Comments POC-GLUCOSE METER 284 mg/dL 70-110 H TESTED AT [address] (BEAKER) (test code [address] [facility] [place] = 1538) [address] CT, [id number] 15:32:00Reason for exam:->LLQ ABD PAINIs the patient [...] examination dated 07/09/2016. Signed: Gama Hammonds [facility] Verified Date/Time: 07/07/2017 15:32:20 Reading Location: [facility] B1 C013Y [address] Body Reading Room LIPASE 2017-07-07 14:41:00 Test Item Value Reference Range Interpretation Comments LIPASE (BEAKER) (test code = 749) 32 U/L 6-51 COMPREHENSIVE METABOLIC [id number] 14:40:00 Test Item Value Reference Range Interpretation [...] NOT APPLICABLE FOR DIALYSIS PATIEN TS. POCT-GLUCOSE [id number] 14:10:00 Test Item Value Reference Range Interpretation Comments POC-GLUCOSE METER 352 mg/dL 70-110 H TESTED AT [address] (BEAKER) (test code [address] [facility] [place] = 1538) [address] CBC W/PLT COUNT & AUTO [id number] 13:30:00 Test Item Value Reference Range Interpretation [...] 0.00-0.20 (test code = 417) URINALYSIS W/ [id number] 13:01:00 Test Item Value Reference Range Interpretation [...] 1663) SOURCE(BEAKER) (test code = 2795) KETONE, [id number] 12:58:00 Test Item Value Reference Range Interpretation Comments KETONES, BLOOD (BEAKER) (test code 0.1 mmol/L <0.4 = 1103) BLOOD GAS, [id number] 12:48:00 Test Item Value Reference Range Interpretation [...] (test code = 1819) 37.0 % POCT-GLUCOSE [id number] 12:04:00 Test Item Value Reference Range Interpretation Comments POC-GLUCOSE METER > mg/dL 70-110 HH OUTSIDE ME ASURING (BEAKER) (test [facility] 1538[facility] [address] BACTERIAL - [id number] 03:02:00Negative (02/25/17 9:02 PM)[facility] [id number] 03:02:00 Test Item Value Reference Range Interpretation Comments Tube Num CSF (test code = Tube Num CSF) 1 1 [facility] [id number] 03:02:00Clear (02/25/17 9:02 PM)[facility] [id number] 03:02:00Colorless (02/25/17 9:02 PM)[facility] [id number] 03:02:00Colorless (02/25/17 9:02 PM)[facility] [id number] 03:02:002[facility] [id number] 03:02:001[facility] [id number] 03:02:001[facility] [id number] 03:02:002[facility] [id number] 03:02:00 Colorless (02/25/17 9:02 PM)[facility] [id number] 03:02:00Clear (02/25/17 9:02 PM)[facility] [id number] 03:02:00 Test Item Value Reference Range Interpretation Comments Tube Num CSF (test code = Tube Num CSF) 4 1 [facility] [id number] 03:02:00Colorless (02/25/17 9:02 PM) [facility] [id number] 03:02:06343Zdlslydf HermannBODY FLUIDS 2017-02-26 03:02:0055[facility]annFUNGAL - [id number] 03:02:00 Negative (02/25/17 9:02 PM)[facility] IcjxfsaTXDGXMAAZW6305-43-25 03:02:00Non Reactive (02/25/17 9:02 PM)[facility]annMOLECULAR [id number] 03:02:00Negative 2(02/25/17 9:02 PM)[facility]ann[facility]LECULAR DIAGNOSTIC 2017-02-26 03:02:00Negative 1(02/25/17 9:02 PM)[facility]ann[facility]IRAL - SEROLOGY 2017-02-26 03:02:00Negative (02/25/17 9:02 PM)[facility]annCHEM PANEL 2017-02-26 01:42:000.9[facility]annCHEM [id number] 01:42:0023[facility]annCHEM MFXNC3036-38-52 01:42:004.3[facility]annCHE[facility] BCKDP4422-98-50 01:42:0011.3[facility]annCHE[facility] [id number] 01:42:48116Vcfzvtmo HermannCHEM CTONT5858-98-12 01:42:000.3[facility]annCHE[facility] KZCKH2596-02-97 01:42:0016 [facility]CHE[facility] CHZHS6303-06-55 01:42:0017[facility]annCHEM PANEL 2017-02-26 01:42:008.2[facility]annCHE[facility] [id number] 01:42:004.3[facility]annCHE[facility] MVYQM7126-19-24 01:42:09019Bwtcajvi HermannCHEM ANJTB8781-87-84 01:42:000.70[facility]annCHEM XQNTV4846-76-65 01:42:18078Lvifidgd HermannCHEM CFWRF2815-70-93 01:42:008.9[facility]annCHE[facility] TEFMC6590-29-38 01:42:0097 [facility] [id number] 01:42:0026[facility]annCHEM PANEL 2017-02-26 01:42:30636Xpyfqsgw HermannCHEM FIOBW0450-06-16 01:42:0016[facility]annCHEM CUCDQ9989-65-18 01:42:003.9[facility]annCHE[facility] VPZPS2441-69-77 01:42:001.8[facility] LkdtmqfKHDAFTCGKA4488-77-33 01:42:70550Awyeykga Jona JCMGNXFIUI3656-35-47 01:42:0082.2[facility] XehtrjaOGTGOVQVUA7772-94-69 01:42:00 37.1[facility] BrjtaoiAUGDMTDCBW9431-29-06 01:42:007.4[facility]annHEMATOLOGY 2017-02-26 01:42:0014.1[facility] JbczqvaPNGQBQDIFN3498-34-64 01:42:00 Test Item Value Reference Range Interpretation Comments MCH (test code = MCH) 27.6 pg 27.0-31.0 [facility] CvhmvrvUEZVZTIQOO2681-38-86 01:42:0033.6[facility]annHEMATOLOGY 2017-02-26 01:42:004.52[facility] SxvwnxdOTKIPKUQCM9385-38-74 01:42:0012.5[facility] NiitsueONXSTTFDVZ3670-00-66 01:42:007.1[facility] RtuykakWNFLHGIXCA3354-53-97 01:42:000.8[facility] RweqgpcIFDOLQKIJV9355-66-09 01:42:002.8[facility] FTWKQLPQAH6192-81-85 01:42:003.8[facility] WyjjwmoTPTQAXHFQH8116-91-94 01:42:000.4 [facility] JtbhujqYKZCEMWLSF6283-88-19 01:42:0053.4[facility]annHEMATOLOGY 2017-02-26 01:42:0039.1[facility] NdtorimDSGGSDSTSU2829-14-12 01:42:001.4[facility] MotwxyiVDEWLMZIBS0433-46-99 01:42:005.3[facility] WfgttanYBZTGVAOSC8733-89-27 01:42:000.1[facility] UhyhfezQTTNUDZSCQ5994-41-07 01:42:000.1[facility]annURINE AND DPFWF8899-40-82 01:42:000.2[facility] AND LQGXM5174-91-69 01:42:00Negative (02/25/17 7:42 PM)[facility] UXQVO7976-70-17 01:42:00Negative *NA*(02/25/17 7:42 PM)[facility] [id number] 01:42:00Negative *NA*(02/25/17 7:42 PM)[facility] [id number] 01:42:00Negative (02/25/17 7:42 PM)[facility] [id number] 01:42:00Negative (02/25/17 7:42 PM)[facility] AND [id number] 01:42:00Negative (02/25/17 7:42 PM)[facility] [id number] 01:42:00 Test Item Value Reference Range Interpretation Comments UA pH (test code = UA pH) 6.0 1 5.0-8.0 [facility] [id number] 01:42:00 Test Item Value Reference Range Interpretation Comments UA Spec Grav (test code = UA Spec 1.010 1 Grav) [facility] [id number] 01:42:00Yellow *NA*(02/25/17 7:42 PM) [facility] CPDRT1264-27-50 01:42:00Slight Cloudy (02/25/17 7:42 PM)[facility]annVIRAL - TWPLXILL6867-12-14 01:42:00Negative (02/25/17 7:42 PM)[facility]annVIRAL - WBUXKGEK5909-16-85 01:42:00Negative (02/25/17 7:42 PM)[facility]annCHEM EBWNV3489-83-01 09:02:25854Eopshnud HermannCHEM PANEL 2017-01-26 09:02:000.2[facility] HermannCHEM CKVDA5113-06-66 09:02:24076Dzifhqmo HermannCHEM FENTY9722-36-15 09:02:0012[facility] HermannCHEM KBOQP1767-98-73 09:02:003.3[facility]annCHEM TMBPA0928-94-62 09:02:002.4[facility] HermannCHEM LEQEU3465-68-14 09:02:005.7[facility] HermannCHEM GERMJ0737-37-46 09:02:009.7 [facility]annCHEM UZWID6840-12-35 09:02:98527Nifauxbd HermannCHEM PANEL 2017-01-26 09:02:007.4[facility] HermannCHEM KOOON5218-51-89 09:02:000.7[facility] HermannCHEM FQXFK6213-32-06 09:02:000.40[facility]annCHEM FSRYW2431-08-14 09:02:005[facility]annCHEM OIFMK5371-66-00 09:02:0037[facility] HermannCHEM AQNIY5760-00-20 09:02:0044[facility]annCHEM FZDUM6112-99-94 09:02:003.7 [facility]annCHEM CJTQB5870-55-00 09:02:66269Ipstxibl HermannCHEM PANEL 2017-01-26 09:02:0025[facility] HermannCHEM GPCYW5646-06-65 09:02:71386Gfbzxnko HermannCARDIAC VWRLUQX4159-73-90 22:26:00<0.02[facility] HermannPARATHYROID PCCAPPL1516-10-57 22:26:000.99[facility] HermannPARATHYROID IGFQPXF5192-78-72 22:26:001.01[facility] HermannCHEM HNIUY8550-50-01 20:00:002.6[facility] HermannCHEM JABLI2770-82-58 20:00:03830Uuqurwjs HermannCHEM EXKHZ5196-49-50 20:00:000.50 [facility]annCHEM LVSOK8550-60-17 20:00:21117Lalscwzu HermannCHEM PANEL 2017-01-25 20:00:003.6[facility]annCHEM JMZGC1940-60-68 20:00:0025[facility]annCHEM GDMPI4143-17-84 20:00:68891Puxanpce HermannCHEM RJJEZ8033-31-94 20:00:008.6[facility]annCHEM VGBIL1439-55-41 20:00:006.9[facility]annCHEM UPGQP1867-66-77 20:00:61538Zhnzihwr HermannCHEM LSIVH8946-05-87 20:00:008 [facility]annCHEM TOXZC2044-99-40 08:54:002.7[facility] HermannCHEM PANEL 2017-01-25 08:54:94966Jkrngpvq HermannCHEM KHVQI0574-52-47 08:54:000.60[facility]annCHEM PDVSK0604-88-01 08:54:009[facility]annCHEM ZQSXJ5436-19-42 08:54:63705Mywpwria HermannCHEM ZIKMH6624-33-46 08:54:0012.5[facility] HermannCHEM GUZQG4319-53-32 08:54:003.5[facility] HermannCHEM PNUJE0128-05-01 08:54:19710 [facility]annCHEM WBQBA4504-88-38 08:54:0023[facility] HermannCHEM PANEL 2017-01-25 08:54:007.1[facility] HermannCHEM XULMV3924-67-85 08:54:35674Ohyiygwc HermannCHEM XAMFP7581-52-86 08:54:001.7[facility] ItlonckZIWBHEQPBJ9611-65-01 08:54:007.4[facility] GbgicshYIVGEWVQJJ8114-02-66 08:54:0013.6[facility] QWFSZGILFY8492-30-52 08:54:88668Ocdgsvkm LfytxikFQYXCXLHFA0491-72-53 08:54:00 33.4[facility] TtwfnkrJLGKOJILGG4054-57-95 08:54:0082.5[facility]OLOG[facility] 2017-01-25 08:54:00 Test Item Value Reference Range Interpretation Comments MCH (test code = MCH) 27.6 pg 27.0-31.0 [facility] ChlddqsBYTDOWIGDR0807-92-97 08:54:0010.7[facility]HE[facility]OLOGY 2017-01-25 08:54:0032.0[facility] VsztjumCJARLCRHTG1265-73-80 08:54:005.5[facility] HsizfdqPXFTMAEWHO6364-11-80 08:54:003.88[facility] NqvrllnQVDQLGPBWN9596-20-47 08:54:007.2[facility] AqmkhngVJXNYMTWQN1847-61-51 08:54:000.4[facility] PYGRVUVQYF2584-77-42 08:54:003.0[facility] EyyewcnWCDNZQYOZZ9172-28-33 08:54:002.0 [facility] EyxgkhkWQJCXGUDRV3157-42-25 08:54:000.9[facility]OLOGY 2017-01-25 08:54:000.6[facility] EqpuzxgBKWSGAKIKC7692-76-44 08:54:0036.3[facility] UrtmolrEGBBOBUOTT7659-21-70 08:54:0055.0[facility] STOOL 2017-01-25 04:54:00Negative (01/24/17 11:54 PM)[facility] ST[facility]OL 2017-01-25 04:54:00Positive *ABN*(01/24/17 11:54 PM)[facility] PGYLM7003-26-85 04:54:00Negative (01/24/17 11:54 PM)[facility] AUYEJ9025-81-89 04:54:00Negative *NA*(01/24/17 11:54 PM)[facility] ROOGB2979-75-93 04:54:00Negative (01/24/17 11:54 PM)[facility] LIYHZ6667-85-07 04:54:000.2[facility] CBOHP2365-18-80 04:54:00Negative *NA*(01/24/17 11:54 PM)[facility] STOOL 2017-01-25 04:54:00 Test Item Value Reference Range Interpretation Comments UA pH (test code = UA pH) 5.5 1 5.0-8.0 [facility] VMFGO7229-28-12 04:54:00<=1.005 *NA*(01/24/17 11:54 PM)[facility] CQSDA9319-72-88 04:54:00Yellow *NA*(01/24/17 11:54 PM)[facility] ALWVB2302-40-18 04:54:00Clear (01/24/17 11:54 PM) [facility]annCARDIAC NOHFGYH7240-89-13 02:44:0062[facility]annCARDIAC KPUWICQ4748-94-70 02:44:00<1.0[facility]annCARDIAC ZYOZTAM9509-13-83 02:44:00<0.02[facility]annCARDIAC UQSULEJ0589-87-08 02:44:00<1.6 [facility]annCHEM YZGAW2440-13-50 02:44:0014[facility]annCHEM PANEL 2017-01-25 02:44:000.5[facility]annCHEM TISYI5817-14-44 02:44:0037[facility]annCHEM ICODY4050-41-82 02:44:92843Hfzkghhl HermannCHEM OLJXY4062-35-47 02:44:000.7[facility]annCHEM HQSWH4055-72-51 02:44:004.7[facility]annCHEM RSOAP1602-38-21 02:44:003.5[facility]annCHEM WKQKX7500-31-13 02:44:0016 [facility]annCHE[facility] SETFE3465-72-00 02:44:008.2[facility]annCHEM PANEL 2017-01-25 02:44:97005Jjuxiwvj FerooraDWGZMUTDJN6754-52-06 02:44:0013.7[facility] YbygwidEAFYWZNUDC3631-05-15 02:44:0041.6[facility] PtnkzboJKJBCJZLIZ4767-36-82 02:44:0083.6[facility] MefbixxLJPNVSWTDR7664-95-75 02:44:00 Test Item Value Reference Range Interpretation Comments MCH (test code = MCH) 27.5 pg 27.0-31.0 [facility] OhjhzdjRPIAQFTMFE2932-96-71 02:44:0032.9[facility]annHEMATOLOGY 2017-01-25 02:44:0013.6[facility] GdsfinkZOOGWOWDFQ3923-92-62 02:44:74241Uqfqvfdw QahkpjtSAMMTCLCYX1990-28-99 02:44:008.1[facility] ZdtmcedCRJIYPRBNG3649-00-69 02:44:005.8[facility] MtjsyotPUJBDHXBXF8820-62-58 02:44:004.97[facility] IDPAMYBXJE5159-36-76 02:44:000.4[facility] ByqpnylYOAWJRBBEZ2448-66-26 02:44:000.7 [facility] LvyokdmNVMNLHSTZL3797-95-47 02:44:003.5[facility]annHEMATOLOGY 2017-01-25 02:44:007.1[facility] TejclwjFLAKWSSWPJ5989-21-50 02:44:000.6[facility] KtwazfpWMOFJQALLA2139-51-16 02:44:001.8[facility] AsotfpcWZXIPWWACG0124-27-96 02:44:0059.9[facility] ImbsxwiPQWZRLAEJK9820-23-34 02:44:0031.7[facility] URINE AVUSPMP5975-89-73 09:22:00 Test Item Value Reference Range Interpretation [...] S Sulfamethoxazole (test code = 47) POCT-GLUCOSE YPVGU6282-38-16 23:15:00 Test Item Value Reference Range Interpretation Comments POC-GLUCOSE METER 227 mg/dL 70-110 H TESTED AT [address] (BEAKER) (test code [facility] [place] = 1538) [address] URINALYSIS W/ MGHUIVPRQEX8840-50-53 22:36:00 Test Item Value Reference Range Interpretation [...] 1663) SOURCE(BEAKER) (test code = 2795) KETONE, [id number] 22:32:00 Test Item Value Reference Range Interpretation Comments KETONES, BLOOD (BEAKER) (test code 0.6 mmol/L <0.4 H = 1103) BLOOD GAS, [id number] 22:30:00 Test Item Value Reference Range Interpretation [...] (test code = 1819) 21.0 % SCREEN, WWPAZ1238-30-27 22:29:00 Test Item Value Reference Range Interpretation Comments TEST URINE (BEAKER) (test Negative code = 583) TROPONIN [id number] 21:42:00 Test Item Value Reference Range Interpretation [...] CK-MB Reference Range:<5 Normal5-10 Borderline>10 AbnormalCOMPREHENSIVE METABOLIC [id number] 21:34:00 Test Item Value Reference Range Interpretation [...] I S NOT APPLICABLE FOR DIALYSIS PATIEN CHANCE. GVZYJB7875-31-61 21:32:00 Test Item Value Reference Range Interpretation Comments LIPASE (BEAKER) (test code = 749) 28 U/L 6-51 CBC W/PLT COUNT & AUTO PMSZWWBNTFBJ6877-72-35 20:55:00 Test Item Value Reference Range Interpretation [...] L 0.00-0.20 (test code = 417) POCT-GLUCOSE HUZPY3271-00-00 20:56:00 Test Item Value Reference Range Interpretation Comments POC-GLUCOSE METER 446 mg/dL 70-110 HH Notified R Diana DALTON/TESTED AT ([facility]) (test code [address] [address] = [address]) [address] [facility] [address] BEDSIDE GLUCOSE OIORUOW0939-06-90 15:13:42036Dcjhdggg HermannBEDSIDE GLUCOSE HCCEUYI0373-17-34 04:18:59384Klkguxak VomamomHYEIFMYBY8017-03-92 03:05:000.14 [facility] MpemfjkAJFRBGIIZ0727-38-78 03:05:008[facility] XyupkybNGRGQGVHN9745-26-34 03:05:000.2[facility] OvvamdoXDMOAMKMT2623-30-84 03:05:0027[facility] AXECWDSTM0923-07-71 03:05:0013.2[facility] DvrkqosJNIBHYJNP4101-37-41 03:05:008.8 [facility] NxosomzVDINEAALA9957-43-67 03:05:007.6[facility] HermannCHEMISTRY 2011-11-29 03:05:0016[facility] SbgdkcjFQBLMCELF1636-95-95 03:05:003.8[facility] QypwxpeDXWBJLWET5719-66-46 03:05:003.8[facility] PphosipQNNPNAFHO6731-19-00 03:05:001.0[facility] DbmceblOMJNSGSVT8831-72-40 03:05:75686Wclglztw [facility] CWVZIBBYC1817-66-70 03:05:0013[facility] XaoynrrKBBVHGCRH7957-86-21 03:05:87868 [facility] DpvlzjyOZVHJYJZU9098-10-67 03:05:0098[facility] HermannCHEMISTRY 2011-11-29 03:05:000.7[facility] UxcipnrEMGEPUASR4888-74-98 03:05:0011[facility] SznzpioHYKYJCPLE0628-17-13 03:05:004.2[facility] QjxysyiFEIWPBLJC3103-89-99 03:05:45918Uprbpfxv FsybznlZIQNQDSDFX2255-33-55 03:05:004.41[facility] ASZTFKPUVL9968-33-29 03:05:005.7[facility] NptzqmgIWITREQGHR9625-30-41 03:05:00 33.2[facility] QxnbcdlNSLOMDNVBX0318-74-55 03:05:0012.9[facility] HermannHEMATOLOGY 2011-11-29 03:05:0013.8[facility] UgsmligQDBIOUVKIH0734-83-03 03:05:0088.4[facility] YwgnulpJBTCUCYCNE9128-46-32 03:05:00 Test Item Value Reference Range Interpretation Comments MCH (test code = MCH) 29.3 pg 27.0-31.0 N [facility] XoufoyyADGOHFWAPQ3055-79-27 03:05:0038.9[facility] HermannHEMATOLOGY 2011-11-29 03:05:007.5[facility] TutnugnRMEWNUXSWY1950-60-28 03:05:52922Qyqbbips HhumrmcUFZSHPUESJ8511-85-59 03:05:0057.5[facility] ZbuqpybTONMXLSUQO2786-34-55 03:05:000.5[facility] RlbblvaGIMNCBBKEF3604-29-45 03:05:001.5[facility] ULUVUMZJQL4716-64-37 03:05:005.3[facility] AhwxufcRSDNQCRTKJ9051-00-65 03:05:00 35.2[facility] EkafvlzNRMTCFYUFR1787-00-94 03:05:002.0[facility]annHEMATOLOGY 2011-11-29 03:05:003.3[facility] GtrvxfqLRFLBROADB5658-74-67 03:05:000.1[facility] LezslanHVHADSOUNW7104-61-15 03:05:000.3[facility] TwobvepCTFIZPOVBG2833-10-76 03:05:000.0[facility] HxshuvbLAKPPZBDXS8385-12-94 03:05:00 Test Item Value Reference Range Interpretation Comments UA Spec Grav (test code = UA Spec 1.010 1 N Grav) [facility] NdvvxxtYHFHWHZGUQ4706-50-30 03:05:00 Test Item Value Reference Range Interpretation Comments UA pH (test code = UA pH) 5.5 1 5.0-8.0 N [facility] RebncvsKNYXRHBAOJ2587-71-73 03:05:00Yellow *NA*(11/28/2011 22:05:00) [facility] CoqirxdRRHICUGFIV4064-70-06 03:05:00Clear (11/28/2011 22:05:00)[facility] CrajoobZIJDZZOTFR2480-71-28 03:05:00Negative (11/28/2011 22:05:00)[facility] EonfuzbJAKCRGAEPE0661-83-54 03:05:00Negative (11/28/2011 22:05:00)[facility] AoevrbrOANNDJJRPX3144-70-13 03:05:000.2[facility] TefxxeqZGPTBHONRN6665-98-33 03:05:00>=1000 mg/dL *ABN*(11/28/2011 22:05:00)[facility] HermannURINALYSIS 2011-11-29 03:05:00Negative mg/dL *NA*(11/28/2011 22:05:00)[facility] IINFEVEAPH2124-14-05 03:05:00Negative mg/dL (11/28/2011 22:05:00)[facility] EiidpfoXOWGKXFBIG6498-38-26 03:05:00Negative (11/28/2011 22:05:00)[facility] XwsawpxPGOCTBKRZH9181-67-91 03:05:00Negative *NA*(11/28/2011 22:05:00)[facility] FqyfntjTSJSYPSWYH7301-26-17 03:05:00Rare /LPF (11/28/2011 22:05:00)[facility] AhinennKLFJPXEVLV1957-88-00 03:05:00Occasional /HPF (11/28/2011 22:05:00) [facility] DgcguayPUFVLRKTTD7376-00-99 03:05:000-2 /HPF (11/28/2011 22:05:00) [facility] VfotufhPOCKRBGXQK8124-50-72 03:05:000-2 /HPF (11/28/2011 22:05:00) [facility] JnkenlwDHJBHKHHRV3230-32-29 03:05:00Performed (11/28/2011 22:05:00) [facility]annBEDSIDE GLUCOSE LRVIPHE5002-71-85 02:45:00>400[facility] HermannBEDSIDE GLUCOSE ILXVOKJ4965-50-39 06:10:19983Ixqyrrmu HermannBEDSIDE GLUCOSE EJMSYEI8491-24-55 05:04:0094[facility] NfpeujzCUZXLZDGR8976-24-03 03:06:00 72[facility] OfasfsqEGAWONORP1656-83-76 03:06:0040[facility] HermannCHEMISTRY 2011-10-25 03:06:007.42[facility] ZguphawLTGPXTPIY8040-03-24 03:06:000.0[facility] WxstlozYWMCKEHWC6855-13-52 03:06:00Rm Air (10/24/2011 22:06:00)[facility] BPPMBDIXB7975-44-15 03:06:0095.0[facility] WiedgidSWLBMVMIG6341-83-32 03:06:001 [facility] CuysrtyQUIDNWJXP4065-74-28 03:06:0026[facility] HermannCHEMISTRY 2011-10-25 03:05:16227Kahjmavb HfftxdlEJAQEFPGP2329-92-12 03:05:05604Gnonsceq PkewoimIDZRIOYQJ4472-44-54 03:05:0019[facility] PkdcfenERKMAVMRP0065-39-62 03:05:008.4[facility] BhblqvoHAMLCPFXJ2512-71-75 03:05:24497Hwxvnroc J[facility] BVZPATWIB4302-31-96 03:05:92043Sxtpvqth IskwzotALITBXELE2370-26-56 03:05:003.8 [facility] VqeccyeZRPRPMHQT6264-53-47 03:05:003.7[facility] HermannCHEMISTRY 2011-10-25 03:05:0027[facility] GntfnpoIMDCNFFEN6734-24-42 03:05:0012.2[facility] GzkjuxrKHTUPXAOP5801-37-42 03:05:004.2[facility] JcteblnGQPXMJJBR1678-92-01 03:05:000.8[facility] JzlirgnEWHUQRMFL3517-40-92 03:05:73558Sdqrqhba [facility] ZIWDYHSYK0480-39-33 03:05:0024[facility] JahmvrsKBRKEPBIJ1101-07-90 03:05:007.5 [facility] HqdmglrXBSMHSKTQ3538-49-80 03:05:0010[facility] HermannCHEMISTRY 2011-10-25 03:05:85431Jobzvikd EdmqfujNMQIKYPCH0256-12-08 03:05:000.3[facility] RgeshuwYUBFRXEMU1596-52-78 03:05:001.0[facility] PququzdSHQALUJJC3676-83-59 03:05:0017[facility] CicvjncJSCNFIVJP6223-18-82 03:05:000.22[facility] YFYGGULLPK3507-25-08 03:05:000.1[facility] RukapvbYDCCVKDAAM2086-59-75 03:05:002.0 [facility] MvaingyWYQAIIMINM9024-05-26 03:05:000.0[facility] HermannHEMATOLOGY 2011-10-25 03:05:000.4[facility] OvxejsqKUSESZURKX1030-94-73 03:05:0029.4[facility] WqhuermJMAWNXPYCZ7875-18-94 03:05:004.3[facility] AultavqTBNTHRHNHR8221-45-52 03:05:005.7[facility] GpatobaHWIJBWANHE1481-64-89 03:05:000.4[facility] STHRPGCPHK2716-45-63 03:05:001.2[facility] AuyxkqyOUTSFIKZSX8775-93-63 03:05:00 63.3[facility] GqqqjszJYNEAFLETJ5538-14-06 03:05:0014.0[facility] HermannHEMATOLOGY 2011-10-25 03:05:43622Byutfcot AobraiiWRZOKKUSYE5339-55-06 03:05:008.0[facility] ShpemgrPILBELXAWR9840-83-75 03:05:0013.3[facility] FpgjrgqAMGTFIANEU9683-16-23 03:05:0039.4[facility] XrtwawfGMZRKNNNSR3802-67-66 03:05:0086.2[facility] EEZJGJQREM8877-58-93 03:05:00 Test Item Value Reference Range Interpretation Comments MCH (test code = MCH) 29.1 pg 27.0-31.0 N [facility] VwiutdfTENTYSWWKE8554-73-05 03:05:0033.8[facility] HermannHEMATOLOGY 2011-10-25 03:05:006.9[facility] XmkgsvrSPJMUIBFPG2654-94-63 03:05:004.57[facility] IxvbmqbNGGNMPSHLJ8342-04-65 03:05:00Positive *ABN*(10/24/2011 22:05:00)[facility] WygrxrcKPTEDUPPSD4248-37-93 03:05:00Negative (10/24/2011 22:05:00)[facility] KlkjzrjVDIJLFEVWU1820-78-92 03:05:00Negative (10/24/2011 22:05:00)[facility] GylsbauDHEPROJZYC0518-02-51 03:05:00>=1000 mg/dL *ABN*(10/24/2011 22:05:00) [facility] ZixitegMYOPKYQKQV8899-19-01 03:05:00 Test Item Value Reference Range Interpretation Comments UA pH (test code = UA pH) 6.0 1 5.0-8.0 N [facility] FdihzeeWNJZYTHIRZ3180-33-86 03:05:00 Test Item Value Reference Range Interpretation Comments UA Spec Grav (test code = UA Spec 1.015 1 N Grav) [facility] KhwjpbiKJCFRUDDSP2729-52-57 03:05:00Yellow *NA*(10/24/2011 22:05:00) [facility] JklfserETWRYANGWR3841-90-48 03:05:00Clear (10/24/2011 22:05:00)[facility] EnzbspkMDCTOGJSUF3119-96-47 03:05:000.2[facility] GulwuvpPAIWUDXCNC5246-03-62 03:05:00Negative *NA*(10/24/2011 22:05:00)[facility] ZldbggtDFAUEUUJGT1382-46-75 03:05:00Negative (10/24/2011 22:05:00)[facility] XgtmuayRLCOGHNZNU9056-72-43 03:05:00Negative *NA*(10/24/2011 22:05:00)[facility] JzlefuuWUXBNBHSSM8968-04-24 03:05:00Rare /LPF (10/24/2011 22:05:00)[facility] BoltlxoZGVBXIBFHU4262-47-73 03:05:00Moderate /HPF (10/24/2011 22:05:00)[facility] CowdlngJHPPLVLPIA5665-05-69 03:05:000-2 /HPF (10/24/2011 22:05:00)[facility] NwwgaywAZOLKMYQRW2904-44-07 03:05:00Performed (10/24/2011 22:05:00)[facility] AyfgjwgGKPTMLWBRW2882-82-86 03:05:006-10 /HPF *ABN*(10/24/2011 22:05:00)[facility] UrukpygKEFJFAHCLW7079-61-29 03:05:00Rare /LPF (10/24/2011 22:05:00)[facility] HermannBEDSIDE GLUCOSE TESTING 2011-10-25 02:43:00>400[facility] HermannBEDSIDE GLUCOSE ZXKLLGG3801-20-86 08:15:40851Gxrvkruh HermannBEDSIDE GLUCOSE AAOBJCL3559-85-51 07:07:00>400 [facility] AqdrrsjRUDCNDCFT6233-83-98 05:10:73454Zuanczko HermannCHEMISTRY 2011-05-23 05:10:000.8[facility] TqhbyvcSIKDLBNNF7624-86-59 05:10:0026[facility] MdhkkclDAHHQOFRV9224-35-22 05:10:0096[facility] UighhceTVJOWWBJF3852-80-61 05:10:003.9[facility] YlnoajqHPPPJUWKG8340-60-40 05:10:0012.9[facility] CFIPWVJNF0648-67-63 05:10:004.0[facility] YwbbefzJTDQWBQMZ8934-26-61 05:10:007.8 [facility] TpaamuzARTICDYMN2422-93-86 05:10:0015[facility] HermannCHEMISTRY 2011-05-23 05:10:08458Wnmbftxc DgudcpcUWUHLTDPS4756-32-93 05:10:001.1[facility] CcbognyKXTSZJEPI9723-60-06 05:10:003.8[facility] ZbtpoayBRVBBSODP3850-62-42 05:10:008.6[facility] YhlpfrvXEMUAHQMB2322-36-32 05:10:0011[facility] PCADUCOMP7796-98-35 05:10:000.4[facility] BhxnahfSNTPSNIDL4374-11-51 05:10:29939 [facility] QzpdwtwBBKYMNLKL4200-96-61 05:10:0015[facility] HermannCHEMISTRY 2011-05-23 05:10:30138Vcgrvspm VmhaxwvOOMZQPECO3523-51-69 05:10:0012[facility] YwjnoyrQSTCAQZLD8591-98-25 05:10:81671Khvxmdxm DpxiufnNXSZIVVUD3178-16-79 05:10:000.36[facility] EztgofvFFYQLHKJVZ4160-91-59 05:10:73125Pkjgdmdo [facility] WXUAOGMDKU7366-22-48 05:10:0034.3[facility] QaqzdimDTPLXOKUGD1254-72-64 05:10:00 7.9[facility] NdasvqdEFSIUXGZBW0946-97-84 05:10:0013.0[facility]annHEMATOLOGY 2011-05-23 05:10:00 Test Item Value Reference Range Interpretation Comments MCH (test code = MCH) 29.5 pg 27.0-31.0 N [facility] LbwubunUERTYRUXIA7483-02-34 05:10:0038.1[facility] HermannHEMATOLOGY 2011-05-23 05:10:0086.0[facility] GkxpkzoPUWWSBGUHJ3836-81-97 05:10:004.43[facility] GugytguDCTBJEHUBS7878-31-45 05:10:005.9[facility] JchuiawZKJCFAQHAE8817-18-04 05:10:0014.0[facility] LvqhndsOEDXLMTCYO4846-95-51 05:10:000.0[facility] HMRHXXCRQZ9547-06-16 05:10:001.7[facility] AteygsxNJIRTDBLUV3823-16-49 05:10:000.3 [facility] UxrsswxSGKQLLOWNY5119-43-26 05:10:000.6[facility] HermannHEMATOLOGY 2011-05-23 05:10:003.8[facility] BwafwyqHLNFELNJXD8575-19-38 05:10:000.1[facility] HruejcxVCAKFJFWEW0415-81-31 05:10:004.7[facility] KvdpqgtIKLMWYTTDS6091-77-05 05:10:0028.9[facility] MbvpxtnAGXZBEZABW8498-55-49 05:10:002.5[facility] BPOKBEEGYW5049-29-20 05:10:0063.3[facility] GzrcmicAQJWBVOHPO1208-21-57 05:10:000- 2 /HPF (05/22/2011 23:10:00)[facility] GrrnpcnCGHHLSXZZP3149-92-46 05:10:00 Occasional /HPF (05/22/2011 23:10:00)[facility] RmymeclCIMAOGTUPT5805-14-03 05:10:00Negative (05/22/2011 23:10:00)[facility] SvdglzpJQYPRIGDCJ6623-00-05 05:10:00Negative *NA*(05/22/2011 23:10:00)[facility] FwiqmobGRACIVNAGQ7828-47-68 05:10:00>=1000 mg/dL *ABN*(05/22/2011 23:10:00)[facility]annURINALYSIS 2011-05-23 05:10:00Negative (05/22/2011 23:10:00)[facility]annURINALYSIS 2011-05-23 05:10:00 Test Item Value Reference Range Interpretation Comments UA pH (test code = UA pH) 5.0 1 5.0-8.0 N [facility] OuibiszGOTIBKMDPR2102-38-68 05:10:003-5 /HPF (05/22/2011 23:10:00) [facility] LmafjfsKLRFTWHJYG2554-66-14 05:10:00Rare /LPF (05/22/2011 23:10:00) [facility] DujzrvhOHJUSUMNMO9532-05-34 05:10:000.2[facility] HermannURINALYSIS 2011-05-23 05:10:00Negative (05/22/2011 23:10:00)[facility]annURINALYSIS 2011-05-23 05:10:00Negative *NA*(05/22/2011 23:10:00)[facility]annURINALYSIS 2011-05-23 05:10:00Negative (05/22/2011 23:10:00)[facility]annURINALYSIS 2011-05-23 05:10:00Performed (05/22/2011 23:10:00)[facility]annURINALYSIS 2011-05-23 05:10:00Yellow *NA*(05/22/2011 23:10:00)[facility]annURINALYSIS 2011-05-23 05:10:00Clear (05/22/2011 23:10:00)[facility]annURINALYSIS 2011-05-08 00:16:00Negative (05/07/2011 18:16:00)[facility]annURINALYSIS 2011-05-08 00:16:000.2[facility] LncgzjoGNBARFCKNE5165-11-78 00:16:00Negative *NA*(05/07/2011 18:16:00)[facility] IqbrugfPXZWKEQMUS5156-16-21 00:16:00Large *ABN*(05/07/2011 18:16:00)[facility] IsyulqiXWPAWALFIJ0024-70-50 00:16:006-10 /HPF *ABN*(05/07/2011 18:16:00)[facility] PfeederDBGZJUUPKD5187-88-21 00:16:00 Occasional /HPF (05/07/2011 18:16:00)[facility] KxaqrijJYTJSAEJHD0530-18-40 00:16:00Performed (05/07/2011 18:16:00)[facility] UhqvbaoJSZBFIJXST6104-19-23 00:16:00Few /LPF (05/07/2011 18:16:00)[facility] FvsnsmpTWJXWCCNIV6846-83-14 00:16:00Negative (05/07/2011 18:16:00)[facility] LxamihpKVTCBBHRTJ3972-29-76 00:16:0021-50 /HPF *ABN*(05/07/2011 18:16:00)[facility] HermannURINALYSIS 2011-05-08 00:16:00Trace *ABN*(05/07/2011 18:16:00)[facility] 00:16:00>=1000 mg/dL *ABN*(05/07/2011 18:16:00)[facility] COAAVHWSBV3232-29-35 00:16:00Negative (05/07/2011 18:16:00)[facility] BOJFBULZNI7426-22-06 00:16:00 Test Item Value Reference Range Interpretation Comments UA Spec Grav (test code = UA Spec 1.010 1 N Grav) [facility] EhkazffHFXWAYZACL5432-77-72 00:16:00Clear (05/07/2011 18:16:00)[facility]fczjduDUMKEQMVDQ0024-84-15 00:16:00 Test Item Value Reference Range Interpretation Comments UA pH (test code = UA pH) 6.0 1 5.0-8.0 N [facility] EnqgyhiMSFPDIAMDL1321-85-61 00:16:00Yellow *NA*(05/07/2011 18:16:00) [facility] EPYKRTH2751-64-01 06:51:96875Yynkapkz J[facility] XELUWSBZM2919-30-28 04:20:00Negative (04/19/2011 22:20:00)[facility] ROGOJOSMM1021-18-00 04:20:004.1[facility] XavnxxgQBBCHRBCI7700-89-58 04:20:0015 [facility] EwhtjmdTMPSIEJIN0192-00-03 04:20:009.2[facility] HermannCHEMISTRY 2011-04-20 04:20:0096[facility] GqasimaDIIWWVBOW2975-62-47 04:20:0016.2[facility] JanuyojMFGKKASTX4884-00-30 04:20:0024[facility] OegcktcIULYQPLJN9747-96-09 04:20:004.0[facility] GrfderoNFNCNXNIK4533-22-90 04:20:008.1[facility] HHJRMBYXZ8867-96-79 04:20:000.4[facility] ZseyytkUQSIYJVBC1587-71-92 04:20:0092 [facility] HtrfsgfHYNBIKTSW7771-89-45 04:20:004[facility] NjsoakzVIUUGLVTQ4021-13-09 04:20:0014[facility] ZxdamwwHIRHDISHM1986-50-46 04:20:001.0[facility] LJLEKIUNC5980-97-75 04:20:87106Heualyiy IfzeotoZAKBATGOR1064-30-49 04:20:000.8 [facility] XocdvxtHITEJREZD9701-65-57 04:20:0012[facility] HermannCHEMISTRY 2011-04-20 04:20:004.2[facility] XsjxaffBULGHBGJJ4668-11-20 04:20:17100Uyejkcoy BjnjhveNEXYFPZYM3980-75-46 04:20:44628Lwetkziz RdtdikpZJWAYLOGN0019-36-07 04:20:0070[facility] YgncffzTURYSBMQVQ9780-20-93 04:20:007.9[facility] OQEREHWCBK2369-53-87 04:20:39795Cnnemvqm WopledwKLPCOZDEZM8742-90-50 04:20:00 4.54[facility] CncwsbdTJTQJPXZLW4702-33-28 04:20:0013.3[facility] HermannHEMATOLOGY 2011-04-20 04:20:00 Test Item Value Reference Range Interpretation Comments MCH (test code = MCH) 29.3 pg 27.0-31.0 N [facility] DbjkjtfCHPIDULGVX8537-81-42 04:20:0033.9[facility] HermannHEMATOLOGY 2011-04-20 04:20:0014.0[facility] XmmsbttECIIDIBLAA0750-45-11 04:20:0039.3[facility] YenscmrGLSLNQRRWK5909-08-42 04:20:0086.5[facility] EueibfxKCABWGYPDN9937-78-52 04:20:008.6[facility] KoeqlyoWOEMRUKFHI1346-81-78 04:20:000.1[facility] EYMUPLMHUJ4122-12-70 04:20:000.1[facility] ChhhrehJJOOCQHJFP1879-34-87 04:20:000.9 [facility] GwygmiqMOVTMOWEGF2988-32-90 04:20:0019.9[facility] HermannHEMATOLOGY 2011-04-20 04:20:005.4[facility] EsxuqkbRXNCTNJKJZ7875-87-07 04:20:0073.1[facility] DnommnaSLJKQRNZSY7053-24-93 04:20:001.7[facility] YrwyiegXQVEJYLXGQ5137-72-03 04:20:000.5[facility] PoqyanzXNJMVRSYVV2781-36-70 04:20:000.7[facility] DLYLEZRDGR7458-53-77 04:20:006.3[facility] YpzylogGCBAKBEWWV1488-87-61 02:29:00 Negative *NA*(04/19/2011 20:29:00)[facility] RoqthlwZYYRPVEGWN5977-37-72 02:29:00 Negative *NA*(04/19/2011 20:29:00)[facility] PslchofWMBWXYTKIS8616-30-77 02:29:00 Negative (04/19/2011 20:29:00)[facility] ExgrojkOWTIQNRSSN0245-57-19 02:29:00 Negative (04/19/2011 20:29:00)[facility] UhssusoFCTLKZYNFR9377-96-80 02:29:00 Test Item Value Reference Range Interpretation Comments UA pH (test code = UA pH) 6.0 1 5.0-8.0 N [facility] EtfzfjyMHZIODTBRE4249-41-01 02:29:00>=1000 mg/dL *ABN*(04/19/2011 20:29:00)[facility] LnqzneyJMTQOPRFYG5214-04-32 02:29:00Performed (04/19/2011 20:29:00)[facility] BqvptyzKSWUCELINE1518-92-86 02:29:00Negative (04/19/2011 20:29:00)[facility] MssmdzhAEJONMRFPC1650-32-58 02:29:000.2[facility] EJHUEAJIDB2247-03-51 02:29:00Negative (04/19/2011 20:29:00)[facility] RSDCNRFAFS9305-90-89 02:29:00Occasional /HPF (04/19/2011 20:29:00)[facility] OymkhgfEPOGNPKQOJ3119-32-05 02:29:00Occasional /LPF (04/19/2011 20:29:00) [facility] UwikywhIKJBFMZSLW7434-81-09 02:29:003-5 /HPF (04/19/2011 20:29:00) [facility] IrrqfwmGLOQLZZQLH5780-30-62 02:29:000-2 /HPF (04/19/2011 20:29:00) [facility] ZwbziwfMUFMEZVJLH0382-44-35 02:29:00Clear (04/19/2011 20:29:00)[facility] ZbbqmjlGOMBYDMUAM5862-29-78 02:29:00Yellow *NA*(04/19/2011 20:29:00)[facility] NJCTXNW5991-71-21 05:47:30816Guddwrci HermannCHEMISTRY 2011-03-26 02:45:00<3[facility] YgmgkkqPODUFIFXM1087-25-93 02:45:009.2[facility] CqbtsdlPHICOJPQO1792-62-92 02:45:0014.0[facility] IjkrreaSHZVZBJDB6665-54-86 02:45:0025[facility] YnruejbLQEWKVCYH2112-88-30 02:45:0097[facility] VJYDCPFGU0121-75-43 02:45:004.0[facility] TkbvhwrSDDYTLQCB6781-57-58 02:45:000.7 [facility] WlqtfthCJTJVKBFV7839-24-97 02:45:43133Mnbcfyem HermannCHEMISTRY 2011-03-26 02:45:000.5[facility] JhowrjwGSBSGYMAB7634-69-48 02:45:0069[facility] JmwknwvLTDHCHSEQ7087-19-74 02:45:0014[facility] LquhicyMLXFBVZZR2912-11-42 02:45:003.9[facility] AhiafiyQHGVLCVIH1501-56-41 02:45:007.8[facility] FQIJFBTYL2960-92-56 02:45:0019[facility] AbuvydlHGAMUYCIR1068-72-05 02:45:001.0 [facility] WovgncpPZZFYVILG9128-56-08 02:45:003.9[facility] HermannCHEMISTRY 2011-03-26 02:45:0013[facility] RovtecvUFFTEVRFY3730-63-12 02:45:63308Wevwsnzu YixasbuGXFLNHOJG0319-12-87 02:45:46169Ucjimyek CxwjuykMOCPAZMMAU4192-43-87 02:45:0012.7[facility] YxoabejKVUSAIHENW2201-46-12 02:45:0014.0[facility] SRQRFSBVRQ8353-70-37 02:45:0036.9[facility] VhdgnyqKZPBQIWJVQ8012-87-30 02:45:00 85.5[facility] QqbwjnpVAAJTGJOOD2574-98-72 02:45:00 Test Item Value Reference Range Interpretation Comments MCH (test code = MCH) 29.5 pg 27.0-31.0 N [facility] JxcblroZFSMKLZPYA4528-62-90 02:45:0034.5[facility] HermannHEMATOLOGY 2011-03-26 02:45:46007Vxcjwuju YjwkpueROIKDBRKGN6453-65-67 02:45:008.2[facility] KhtmjvqSJGADIHOMV5463-39-39 02:45:006.9[facility] TiiywqiZUQVVVZNDC9744-09-12 02:45:004.32[facility] KdimipxFRSZKELFGS5484-12-32 02:45:000.5[facility] BPSFCSOVYE9401-29-83 02:45:004.6[facility] YixzmvyZQXJZPLZEK3603-27-73 02:45:001.9 [facility] SwmpjosNAULPTJRIP3410-69-52 02:45:000.3[facility] HermannHEMATOLOGY 2011-03-26 02:45:000.1[facility] ZoyadgjLQZUPHFDRW0984-41-83 02:45:000.0[facility] ZsmdgmrIAUWYELJZJ2495-33-78 02:45:0027.2[facility] CejlysiUAMKJQVWLR0440-65-42 02:45:0066.3[facility] IazwsotSGQMJNCIOK5115-09-94 02:45:004.8[facility] GEREHQHJBT8193-48-41 02:45:001.2[facility] BnectegSXUKAYFQWD4822-84-94 02:00:00 Occasional /HPF (03/25/2011 20:00:00)[facility] JahdiffZBIUQPHXIT8126-73-27 02:00:00Occasional /HPF *ABN*(03/25/2011 20:00:00)[facility]annURINALYSIS 2011-03-26 02:00:00Rare /LPF (03/25/2011 20:00:00)[facility]annURINALYSIS 2011-03-26 02:00:000-2 /HPF (03/25/2011 20:00:00)[facility]annURINALYSIS 2011-03-26 02:00:000-2 /HPF (03/25/2011 20:00:00)[facility]annURINALYSIS 2011-03-26 02:00:00Negative (03/25/2011 20:00:00)[facility]annURINALYSIS 2011-03-26 02:00:00Performed (03/25/2011 20:00:00)[facility] HermannURINALYSIS 2011-03-26 02:00:00Negative (03/25/2011 20:00:00)[facility]annURINALYSIS 2011-03-26 02:00:00Negative (03/25/2011 20:00:00)[facility]annURINALYSIS 2011-03-26 02:00:000.2[facility] GipoobqRNUCBRBEHU7509-12-41 02:00:00Yellow *NA*(03/25/2011 20:00:00)[facility] HkmqlfrATCGOGFDLO8528-47-98 02:00:00Clear (03/25/2011 20:00:00)[facility] XbpubedBNSHRLZUGI3709-37-61 02:00:00Negative *NA*(03/25/2011 20:00:00)[facility] AjozcdzDHUEZETUBS7645-50-52 02:00:00>=1000 mg/dL *ABN*(03/25/2011 20:00:00)[facility] TtbanrkELYDHLJWZP8730-26-42 02:00:00 Negative *NA*(03/25/2011 20:00:00)[facility] RujohfrXPJSVAJOIT1398-07-35 02:00:00 Test Item Value Reference Range Interpretation Comments UA pH (test code = UA pH) 6.0 1 5.0-8.0 N [facility] VsefnxtHAVTRHBCZX2390-70-94 02:00:00Negative (03/25/2011 20:00:00) [facility]annB[facility]SE ODCFVXP8056-96-03 16:26:16414.0[facility] PDNQJYCLJ4193-26-87 15:30:00<0.6[facility] IjhvuncWHKAGIUDX0218-31-58 15:30:00 <0.5[facility] JpchhlfSXZZEWBXE7610-15-93 15:30:0077.0[facility] HermannCHEMISTRY 2011-02-11 15:30:0077.0[facility] VpynykdWCPNYQDUZ7666-06-00 15:30:00<0.02 [facility]annB[facility] GXSTNNH5375-10-02 12:00:10304.0[facility] NCJIGXWBJ6723-36-12 09:29:001.5[facility] DqyurfrTQMCRLZES5637-84-74 09:29:46548.0 [facility] BjqxksxNDQJDYFRG5723-57-32 09:29:0011.0[facility] HermannCHEMISTRY 2011-02-11 09:29:007.8[facility] VtdkhvhWBIMBENWK8967-85-70 09:29:0013.7[facility] OlvtzbgDWBQOTHEI7687-61-83 09:29:000.6[facility] ZprglrvPNRZSHLXQ1444-73-92 09:29:49637.0[facility] LbtyorxYBRBNBYDV6315-19-93 09:29:003.7[facility] UBBWYIAYM9639-87-11 09:29:30266.0[facility] SsnflnsLTICIWFTC7525-32-53 09:29:00 24.0[facility] PnbdediQBGGMSQSI1709-48-94 09:29:00<0.02[facility] UGJAGMBUU1429-94-55 09:29:0071.0[facility] LpphzoyOFSNXZAWF2474-28-22 09:29:0071.0 [facility] WxwmzmkORGMTMGLVY0366-30-93 09:29:007.8[facility]annHEMATOLOGY 2011-02-11 09:29:0014.1[facility] BnwhsovRCAJQOSRKW1163-34-57 09:29:006.8[facility] NknpqrgDQKFJUTHTM0705-27-49 09:29:0011.8[facility] OlbsgayFQPCMMOQVH4996-74-32 09:29:004.11[facility] XlrjqadRVZSPAOIRD5163-39-67 09:29:0035.3[facility] DYFDRCOKJZ3477-49-76 09:29:00 Test Item Value Reference Range Interpretation Comments MCH (test code = MCH) 28.7 pg 27.0-31.0 N [facility] ZhhkrbtDEUAXVOKZS8116-00-73 09:29:0085.7[facility] HermannHEMATOLOGY 2011-02-11 09:29:12068.0[facility] RxtogxvDFCKWNVCUI3092-01-99 09:29:0033.5 [facility] RwdkdxoNGOJAISNQF9816-23-67 09:29:0026.3[facility] HermannHEMATOLOGY 2011-02-11 09:29:0065.8[facility] FjpqudjHJPDAPYETQ0563-44-82 09:29:006.1[facility] DnngsnaCORFATUIGI4136-08-27 09:29:001.2[facility] BilwcmiSIVNFHWOHV9473-85-46 09:29:000.6[facility] OjfvpmnMNYXCCHYUS7394-62-62 09:29:004.5[facility] JMDBBDQBWS6532-12-89 09:29:001.8[facility] NphcblhQFZAHIFEBB1129-35-39 09:29:000.4 [facility] DqnuqzoFCDFPPGIYO2611-73-64 09:29:000.0[facility] HermannHEMATOLOGY 2011-02-11 09:29:000.1[facility] HermannBEDSIDE GLUCOSE IQOJWAG2818-73-64 05:34:00 151.0[facility] XfrgfqqALVZXSPYWH2289-07-66 03:26:00>=1000 mg/dL *ABN*(02/10/2011 22:26:00) ??[facility] QuzetxaLFTGBUHXDB4688-25-79 03:26:00 Negative mg/dL *NA*(02/10/2011 22:26:00) [facility]SkonlibZBFUYETFKT4571-53-30 03:26:00 Test Item Value Reference Range Interpretation Comments UA pH (test code = UA pH) 6.5 1 5.0-8.0 N [facility] HospitalXmkkxhxRXOPQMXOGS0701-38-84 03:26:00Negative mg/dL (02/10/2011 22:26:00) ??[facility] HospitalEdrvlcuGUACXBXRXM7182-71-21 03:26:00Negative (02/10/2011 22:26:00) ??[facility] HospitalIrbjapzRRGXYBYPCU3544-47-46 03:26:00Negative (02/10/2011 22:26:00) ??[facility] HospitalUgthegkHLWFEOPVMG1245-81-37 03:26:000.2[facility] NXAJSNGUEW8310-76-97 03:26:00Negative (02/10/2011 22:26:00) ??[facility]ann IVCHBHWKCO1799-35-31 03:26:00Negative *NA*(02/10/2011 22:26:00) ??[facility] HospitalJxsktycMNABLCSYKG2246-71-54 03:26:00Clear (02/10/2011 22:26:00) ??[facility] HospitalQonbtgeJAPFGPPMXR3755-81-27 03:26:00 Test Item Value Reference Range Interpretation Comments UA Spec Grav (test code = UA Spec 1.01 1 N Grav) [facility] HospitalTqbtwbzQYSIBNYSIB0585-87-09 03:26:00Yellow *NA*(02/10/2011 22:26:00) ?? [facility] HospitalGqdoklgCUGNIDMVKX4147-23-02 03:26:000-2 /HPF (02/10/2011 22:26:00) ?? [facility] HospitalRyxwwgxUBVXNUMNTK5839-57-74 03:26:006-10 /HPF *ABN*(02/10/2011 22:26:00) ??[facility] HospitalBztihtcTAMYLWHDMV5403-36-84 03:26:00Few /LPF (02/10/2011 22:26:00) ??[facility] HospitalXesaoewMWYMUGZJAD0664-83-01 03:26:00Few /HPF (02/10/2011 22:26:00) ??[facility] HospitalYrhpduyZSJIKTRDHP3948-79-77 03:26:00Occasional /HPF *ABN*(02/10/2011 22:26:00) ??[facility] OvjgodoQOTUXGQMXX4677-60-88 03:26:00 Performed (02/10/2011 22:26:00) ??[facility] TehxhvlXQCDCVRFI8334-51-06 03:03:00 Negative *NA*(02/10/2011 22:03:00) ??[facility] QnnwmmlCHBTFXSEQ4725-26-49 03:03:00<0.5[facility] MyijyjpDFSIAGVTT9948-73-10 03:03:00<0.02[facility] DcrlyuiVPGLWWEPB1333-49-49 03:03:007.0[facility] NamgbezHKOVEWEWX7468-77-65 03:03:004.0[facility] GdifooeYPATRZETJ2290-01-10 03:03:007.5[facility] MWGRVTYWX9454-22-71 03:03:00 Test Item Value Reference Range Interpretation Comments A/G Ratio (test code = A/G Ratio) 1.1 1 0.7-1.6 N [facility] HqnjnzhKCPOCNYUO5844-65-82 03:03:003.5[facility]annCHEMISTRY 2011-02-11 03:03:0014.0[facility] OyizaxgNDWPLJIFN3058-78-37 03:03:000.3[facility] CfyqkwjFAURZMNHN7185-24-35 03:03:0069.0[facility] WvkmmmuOTYLEQFWA2141-00-57 03:03:0022.0[facility] MvkbkxoUXTOHOCGA1444-80-00 03:03:00 Test Item Value Reference Range Interpretation Comments B/C Ratio (test code = B/C Ratio) 20.0 1 6-25 N [facility] TjweoaoIYAHDJDUJ0521-23-36 03:03:0096.0[facility]annCHEMISTRY 2011-02-11 03:03:008.7[facility] DgjssvgSLJDMUCWR3502-29-07 03:03:0017.3[facility] TtgkmjhKZIRWUUQA3044-70-98 03:03:79008.0[facility] NhidnfbKJGUBQOIA6182-66-46 03:03:71187.0[facility] HolykjiGVTYUJQGO4582-64-01 03:03:000.6[facility] NYZALJBKO0775-28-45 03:03:0012.0[facility] KasaqggZYIALLDLK9111-84-96 03:03:004.3 [facility] PgdtgqbLTHXRKOWH9176-22-33 03:03:00Negative (02/10/2011 22:03:00) ?? [facility] BibwreyPPVXERQCKN6417-24-87 03:03:003.9[facility]annHEMATOLOGY 2011-02-11 03:03:002.0[facility] JrqdsylWUKIOUTZJP4127-48-39 03:03:000.5[facility] RnmwesrQNRCNDXVYA6582-34-80 03:03:000.4[facility] WgikhfuNNXRURGVLO9651-74-15 03:03:000.1[facility] YgdfuopWDQKIDAUQQ7841-90-06 03:03:0060.9[facility] EHYRSSRHIY8317-23-87 03:03:0031.7[facility] TxvficbHRSLWCEFVO9348-32-89 03:03:00 1.2[facility] WcykhbpZNDNWSFTUK8576-63-54 03:03:005.7[facility]annHEMATOLOGY 2011-02-11 03:03:000.0[facility] AgynnthSVXRTRDPOI3769-78-68 03:03:00 Test Item Value Reference Range Interpretation Comments PT (test code = PT) 13.9 s 12.0-14.7 N [facility] QnvsowvNMZUNLZAHY0162-35-91 03:03:00 Test Item Value Reference Range Interpretation Comments PTT (test code = PTT) 28.4 s 22.9-35.8 N [facility] XbjbmewJYIEICJSID5051-22-63 03:03:00 Test Item Value Reference Range Interpretation Comments INR (test code = INR) 1.07 1 0.85-1.17 N [facility] LyoblfaTSDUTYMRVK4121-33-22 03:03:0033.7[facility]annHEMATOLOGY 2011-02-11 03:03:0014.3[facility] YchpnufAGDMCCWMPC5427-92-11 03:03:58764.0 [facility] HhiapzaDMPVUEOFZW7278-39-71 03:03:007.9[facility]annHEMATOLOGY 2011-02-11 03:03:0085.9[facility] TagledbOXUWMIVPDU0561-09-99 03:03:004.43[facility] GurtlvuWIAIMAMQAZ0506-41-95 03:03:0038.1[facility] KebxjogYUHEGJYTSU4826-44-99 03:03:0012.8[facility] IkqeeqqXOVIDSWSOV8121-87-43 03:03:00 Test Item Value Reference Range Interpretation Comments MCH (test code = MCH) 28.9 pg 27.0-31.0 N [facility] YqzsaqtSIGBOKHUBV9063-67-49 03:03:006.5[facility]annHEMATOLOGY 2011-02-11 03:03:001.1[facility] HermannBEDSIDE GLUCOSE NNPWWRK2761-74-61 16:39:00 175.0[facility] HermannBEDSIDE GLUCOSE ROFEWBO3933-23-81 12:16:0088.0[facility] HermannBEDSIDE GLUCOSE NEIOFIR1545-08-41 11:27:0070.0[facility]annCHEMISTRY 2011-01-15 10:45:00<0.6[facility] NgaubfxZHRSJFOMZ7562-28-82 10:45:00<0.5 [facility] RcknjdcFASUILYQV6330-62-73 10:45:00<0.02[facility]annCHEMISTRY 2011-01-15 10:45:0088.0[facility] YgjhjxkRZUIDEXYB2302-98-79 10:45:000.6[facility] VovrozeTSFMBXTPB8326-47-42 10:45:003.4[facility] SlxfnckFZXTCPYJL0846-39-47 10:45:68453.0[facility] IbqedeyMSBKSYMTF7367-58-14 10:45:0013.0[facility] RIIGJYCAJ3759-94-77 10:45:0025.0[facility] QwqzhkjLMMLFWFWF1469-13-88 10:45:008.0 [facility] VhsolzyOEIOYBYPZ6092-33-29 10:45:0018.4[facility]annCHEMISTRY 2011-01-15 10:45:97538.0[facility] WzikmanSHPOYFGIY3893-44-62 10:45:34967.0 [facility] KejfybxRCLVXVSWC1988-08-12 10:45:0096.0[facility]annCHEMISTRY 2011-01-15 10:45:00 Test Item Value Reference Range Interpretation Comments CHD Risk (test code = CHD Risk) 3.8 1 3.90-5.80 L [facility] CosnlhnLTKVPHIQW8466-31-07 10:45:0045.0[facility]annCHEMISTRY 2011-01-15 10:45:09003.0[facility] PwqickaZGPMHEIMD3405-79-90 10:45:22418.0 [facility] KhhimzvUYUTUWWOB5123-60-38 01:43:00<0.5[facility]annCHEMISTRY 2011-01-15 01:43:00<0.6[facility] VwpzfxcDIVZZSWXP7682-86-56 01:43:0083.0 [facility] FewflazLDGIVQHPG4696-75-28 01:43:00<0.02[facility]annCHEMISTRY 2011-01-14 21:36:00Negative (01/14/2011 16:36:00) ??[facility]ann[facility] 2011-01-14 20:36:00<0.6[facility] BlqcaeyPEKRQJMQL4289-57-10 20:36:0013.0 [facility] JyviuhaWCMXBLKHI2908-22-99 20:36:00<3.0[facility]annCHEMISTRY 2011-01-14 20:36:000.5[facility] DrmjgfeVAPHFFNIO5868-73-31 20:36:003.8[facility] XkxaiyfBDXEJBIPA5145-52-06 20:36:0017.0[facility] FifegjvHLCCYLCEA9491-40-20 20:36:0071.0[facility] IudhaanFNVMNGNWR6751-93-52 20:36:003.8[facility] ZXXQCYPFK1230-12-81 20:36:01864.0[facility] MvwjvnxFOOGVHSLG0249-70-34 20:36:00 22.0[facility] TemugfkSUIJCQLDD7560-17-72 20:36:0014.8[facility]annCHEMISTRY 2011-01-14 20:36:008.6[facility] YexxtttPQWYBANHK5146-55-88 20:36:28963.0[facility] OmgribtVVNAVJSXK4476-78-33 20:36:003.6[facility] HgmbzdtZHWEAFSOU1164-61-61 20:36:00 Test Item Value Reference Range Interpretation Comments A/G Ratio (test code = A/G Ratio) 1.1 1 0.7-1.6 N [facility] HklznsrLCBZVAISC8929-65-30 20:36:00 Test Item Value Reference Range Interpretation Comments B/C Ratio (test code = B/C Ratio) 11.0 1 6-25 N [facility] JejngbeEEKSBVRZC9319-79-86 20:36:007.4[facility]annCHEMISTRY 2011-01-14 20:36:77911.0[facility] LmlixvxJPUKQECTU9572-11-88 20:36:009.0[facility] LzxwowfSEOODTLEC3319-18-58 20:36:000.8[facility] FkmlrbfIJSJEWHZD7718-44-41 20:36:00<0.02[facility] ZlenjffQSPRGGWBA4240-53-84 20:36:00<0.5[facility] WvsfuymNYRWCEKGC3945-68-44 20:36:0078.0[facility] XuranjuKUEVHDGTEL1595-64-95 20:36:000.3[facility] DqolnccOQZSMEFWDF0127-40-76 20:36:001.7[facility] OVLWJCLXCG4200-33-46 20:36:003.5[facility] NwuhautFFQEWUEQNK8225-39-89 20:36:000.9 [facility] KbhuopkZPHLNULLAP0734-61-33 20:36:000.9[facility]annHEMATOLOGY 2011-01-14 20:36:000.0[facility] LihyvdrIVEBEMKJOJ7464-17-77 20:36:000.1[facility] MnayvjzPEQCHYYGWR6798-73-77 20:36:0030.7[facility] HfgbafmPBHQWMZDUB4292-50-59 20:36:0063.0[facility] GrgdivpKCNCKXECZB1818-82-20 20:36:004.5[facility] AAUHSXMLCY1174-70-37 20:36:0014.6[facility] UoeolilBQYGXUFTGL8838-97-22 20:36:00 34.0[facility] AgnrycxXBDFVQMFCC4356-69-63 20:36:008.0[facility]annHEMATOLOGY 2011-01-14 20:36:28989.0[facility] DutwgojRKBHPZZXEO8896-85-26 20:36:00 Test Item Value Reference Range Interpretation Comments MCH (test code = MCH) 28.8 pg 27.0-31.0 N [facility] HospitalCwfwpzsQJPGABAZCB3305-19-08 20:36:0013.2[facility]annHEMATOLOGY 2011-01-14 20:36:004.6[facility] LwbotmlFTNDCUZYVT5192-87-17 20:36:0038.9[facility] IjznkdzNSPIFCDTEB4602-54-72 20:36:0084.6[facility] SgpughxCLQIHZZEZX7721-34-47 20:36:005.6[facility] AkfmboaHBCECGYWAZ9483-14-56 20:36:00 Test Item Value Reference Range Interpretation Comments PT (test code = PT) 13.6 s 12.0-14.7 N [facility]NLJVWCAQWG1109-89-55 20:36:00 Test Item Value Reference Range Interpretation Comments PTT (test code = PTT) 30.2 s 22.9-35.8 N [facility] CenterVrmhvxbCYOFFZPKBA2062-79-31 20:36:00 Test Item Value Reference Range Interpretation Comments INR (test code = INR) 1.04 1 0.85-1.17 N [facility] HospitalByxuybzGTVGAPARDL7106-80-33 20:36:001.5[facility]
--- NOTE | 2020-04-23 19:58 | RAD REPORT ---
EXAM DESCRIPTION: RAD - Chest Single View - 04/23/2020 7:52 pm CLINICAL HISTORY: Generalized Weakness Chest pain. COMPARISON: Chest Single View dated 03/17/2020; Chest Single View dated 01/04/2020; Chest Single View dated 11/15/2019; Chest Single View dated 06/25/2019 FINDINGS: Portable technique limits examination quality. The lungs are grossly clear. The heart is normal in size. No displaced fractures. IMPRESSION: No acute intrathoracic process suspected.
--- NOTE | 2020-04-23 20:09 | RAD REPORT ---
EXAM DESCRIPTION: CT - Head Brain Wo Cont - 04/23/2020 8:01 pm CLINICAL HISTORY: HEADACHE Headache, drowsiness, diabetes COMPARISON: Head Brain Wo Cont dated 03/17/2020; Head Brain Wo Cont dated 11/15/2019 TECHNIQUE: All CT scans are performed using dose optimization technique as appropriate and may inclu de automated exposure control or mA/KV adjustment according to patient size. FINDINGS: No intracranial hemorrhage, hydrocephalus or extra-axial fluid collection.No areas of brai n edema or evidence of midline shift. The paranasal sinuses and mastoids are clear. The calvarium is intact. IMPRESSION: No acute intracranial abnormality.
[2020-04-23 20:56] LABS: Absolute Lymphocytes (CBC) 1.8 K/uL (0.7-4.9); Basophils % 0.8 % (0-1.3); Hematocrit 32.4 % (36.0-45.0); Lymphocytes % 22.5 % (15.3-44.8); RBC Red Blood Cell Count 3.99 M/uL (3.86-4.86)
[2020-04-23 20:57] LABS: Protime INR 1.09
[2020-04-23 21:19] LABS: ALT/SGPT 29 U/L (12-78); AST/SGOT 21 U/L (15-37); Albumin 3.7 g/dL (3.4-5.0); Alkaline Phosphatase 153 U/L (45-117); BUN Blood Urea Nitrogen 37 mg/dL (7-18); Bicarbonate 27 mmol/L (21-32); Bilirubin Direct < 0.1 mg/dL (0-0.2); Bilirubin Total 0.3 mg/dL (0.2-1.0); Glucose Level 223 mg/dL (74-106); Lipase 120 U/L (73-393); Magnesium 2.2 mg/dL (1.8-2.4); NT PRO-BNP 52 pg/mL (<125); Phosphorus 3.5 mg/dL (2.5-4.9); Potassium 4.6 mmol/L (3.5-5.1); Protein, Total 8.7 g/dL (6.4-8.2); Sodium Level 135 mmol/L (136-145); Troponin (Emerg Dept Use Only) < 0.02 ng/mL (0.0-0.045)
[2020-04-23] MEDS ORDERED: METOCLOPRAMIDE 10 MG/2mL INJ ONE (21:21)
[2020-04-23] MEDS ORDERED: DIPHENHYDRAMINE 50 MG/ML VIAL ONE (21:22)
[2020-04-23] MEDS ORDERED: NA CHLORIDE 0.9% 1,000 ML ONE ×2 (21:22→22:27)
[2020-04-23] MEDS ORDERED: FAMOTIDINE 20 MG/2 ML VIAL IV ONE (21:23)
[2020-04-23 22:19] LABS: Urine Blood 2+ (NEG); Urine Glucose 2+ (NEG); Urine Protein 2+ (NEG); Urine Specific Gravity 1.025 (1.005-1.030)
[2020-04-23] MEDS ORDERED: CEFTRIAXONE/SWI 1gm 1 GM/10 ML SYR ONE (22:27)
[2020-04-23 22:29] LABS: SARS-COV-2 RT PCR POSITIVE (NEGATIVE)
--- NOTE | 2020-04-24 02:56 | ER ---
Nurse's Notes [facility] Name: Melissa De Oliveira Age: 54 yrs Sex: Female : 1965 Arrival Date: 04/23/2020 Time: 18:23 Bed 14 Private MD: Diagnosis: Coronavirus infection, unspecified;Urinary tract infection, site not specified;Dehydration Presentation: 04/23 18:35 Chief complaint: Patient states: Past 2 days I had a cold, last night I was vomiting. ca1 Today, I just can't walk cause I feel so weak and I keep on shaking. Denies fever. Denies diarrhea. Denies cough. Reports headache. Coronavirus screen: Client denies travel out of the [place] in the last 14 days. chills, congestion, headache, runny nose, vomiting. Client presents with at least one sign or symptom that may indicate coronavirus-19. Standard/surgical mask placed on the client. Provider contacted for isolation considerations. The client reports previous COVID testing was negative. Date of collection: March 2020. Ebola Screen: Patient negative for fever greater than or equal to 101.5 degrees Fahrenheit, and additional compatible Ebola Virus Disease symptoms Patient denies exposure to infectious person. Patient denies travel to an Ebola-affected area in the 21 days before illness onset. No symptoms or risks identified at this time. Initial Sepsis Screen: Does the patient meet any 2 criteria? No. Patient's initial sepsis screen is negative. Does the patient have a suspected source of infection? No. Patient's initial sepsis screen is negative. Risk Assessment: Do you want to hurt yourself or someone else? Patient reports no desire to harm self or others. Onset of symptoms was April 23, 2020. 18:35 Method Of Arrival: Wheelchair ca1 18:35 Acuity: DEYA 3 ca1 Triage Assessment: 18:35 General: Appears distressed, uncomfortable, Behavior is cooperative, appropriate for bp age, anxious. Pain: Denies pain. EENT: No deficits noted. Neuro: Reports weakness. Cardiovascular: No deficits noted. Respiratory: No deficits noted. GI: Reports nausea. : No signs and/or symptoms were reported regarding the genitourinary system. Derm: No deficits noted. Musculoskeletal: No deficits noted. 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 - Social history:: Smoking status: Patient denies any tobacco usage or history of. Screenin:40 Abuse screen: Denies threats or abuse. Denies injuries from another. Nutritional bp screening: No deficits noted. Tuberculosis screening: No symptoms or risk factors identified. Fall Risk None identified. Assessment: 18:40 General: SEE TRIAGE NOTE. GI: Abdomen is non-distended. bp 19:45 Reassessment: Patient and/or family updated on plan of care and expected duration. Pain ll2 level reassessed. Patient is alert, oriented x 3, equal unlabored respirations, skin warm/dry/pink. 20:45 Reassessment: Patient and/or family updated on plan of care and expected duration. Pain ll2 level reassessed. Patient is alert, oriented x 3, equal unlabored respirations, skin warm/dry/pink. 21:50 Reassessment: Patient and/or family updated on plan of care and expected duration. Pain ll2 level reassessed. Patient is alert, oriented x 3, equal unlabored respirations, skin warm/dry/pink. 22:50 Reassessment: Patient and/or family updated on plan of care and expected duration. Pain ll2 level reassessed. Patient is alert, oriented x 3, equal unlabored respirations, skin warm/dry/pink. 23:45 Reassessment: Patient and/or family updated on plan of care and expected duration. Pain ll2 level reassessed. Patient is alert, oriented x 3, equal unlabored respirations, skin warm/dry/pink. 04/24 00:35 Reassessment: Ddimer 7172 ariane called from laboratory. Ed provider aware. rr5 01:30 Reassessment: Patient and/or family updated on plan of care and expected duration. Pain ll2 level reassessed. Patient is alert, oriented x 3, equal unlabored respirations, skin warm/dry/pink. Vital Signs: 04/23 18:35 BP 92 / 63; Pulse 111; Resp 18 S; Temp 97.9(TE); Pulse Ox 97% on R/A; Weight 49.44 kg ca1 (R); Height 5 ft. 4 in. (162.56 cm) (R); Pain 8/10; 21:00 BP 113 / 81; Pulse 115; Resp 17; Pulse Ox 97% ; ll2 22:00 BP 127 / 73; Pulse 109; Resp 18; Pulse Ox 98% on R/A; ll2 23:00 BP 145 / 79; Pulse 109; Resp 20; Pulse Ox 98% on R/A; ll2 18:35 Body Mass Index 18.71 (49.44 kg, 162.56 cm) ca1 ED Course: 18:23 Patient arrived in ED. ag5 18:37 Triage completed. ca1 18:38 Arm band placed on right wrist. ca1 18:40 Patient has correct armband on for positive identification. Bed in low position. Call bp light in reach. Side rails up X2. 18:41 Tremaine Mayorga, RN is Primary Nurse. bp 19:05 Fracisco Gurrola MD is Attending Physician. mh7 19:53 XRAY Chest (1 view) In Process Unspecified. EDMS 20:02 CT Head Brain wo Cont In Process Unspecified. EDMS 23:44 Magnesium Sent. ll2 23:44 Basic Metabolic Panel Sent. ll2 23:44 CBC with Diff Sent. ll2 23:44 LFT's Sent. ll2 04/24 01:57 CT Chest For PE Angio In Process Unspecified. EDMS Administered Medications: 04/23 21:17 Drug: Benadryl 25 mg Route: IVP; Site: left hand; ll2 21:18 Drug: NS 0.9% 1000 ml Route: IV; Rate: 1000 ml; Site: left hand; ll2 21:18 Drug: Pepcid 20 mg Route: IVP; Site: left hand; ll2 21:18 Drug: Reglan 10 mg Route: IVP; Site: left hand; ll2 22:36 Drug: Rocephin - (cefTRIAXone) 1 grams Route: IVPB; Infused Over: 30 mins; Site: right ll2 hand; Outcome: 04/24 02:55 Discharge ordered by MD. gaytan 03:20 Patient left the ED. tt3 Signatures: Dispatcher [employer] EDMS Tremaine Mayorga RN RN Corey Hayden RN RN rr5 Montse Doyle RN RN Trino Yadav [facility] Christen Veloz RN RN ll2 Fracisco Gurrola MD MD 7 Harry Conley tt3
--- NOTE | 2020-04-24 02:56 | EDPHYS ---
Physician Documentation [facility] Name: Melissa De Oliveira Age: 54 yrs Sex: Female : 1965 Arrival Date: 04/23/2020 Time: 18:23 Bed 14 Private MD: ED Physician Fracisco Gurrola HPI: 04/23 19:27 This 54 yrs old Female presents to ER via Wheelchair with complaints of mh7 General Weakness, Nausea/Vomiting. 19:27 The patient presents to the emergency department with nausea, that is moderate, mh7 vomiting, that is intermittent, 2 times since the onset of symptoms. Onset: The symptoms/episode began/occurred yesterday. Possible causes: unknown. The symptoms are aggravated by nothing. The symptoms are alleviated by nothing. Associated signs and symptoms: Pertinent positives: nausea, vomiting, Headache, Dizziness, generalized fatigue/weakness, Pertinent negatives: abdominal pain, anorexia, belching, constipation, diarrhea, dysuria, fever, flatulence, GI bleeding, hematuria, vaginal discharge. Severity of symptoms: At their worst the symptoms were moderate last night, in the emergency department the symptoms have improved moderately. The patient has experienced similar episodes in the past, several times. 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 - Social history:: Smoking status: Patient denies any tobacco usage or history of. ROS: 19:27 Eyes: Negative for injury, pain, redness, and discharge, ENT: Negative for injury, mh7 pain, and discharge, Neck: Negative for injury, pain, and swelling, Cardiovascular: Negative for chest pain, palpitations, and edema, Respiratory: Negative for shortness of breath, cough, wheezing, and pleuritic chest pain, Back: Negative for injury and pain, : Negative for injury, bleeding, discharge, and swelling, MS/Extremity: Negative for injury and deformity, Skin: Negative for injury, rash, and discoloration, Psych: Negative for depression, anxiety, suicide ideation, homicidal ideation, and hallucinations. Exam: 19:27 Constitutional: This is a well developed, well nourished patient who is awake, alert, mh7 and in no acute distress. Head/Face: Normocephalic, atraumatic. Eyes: Pupils equal round and reactive to light, extra-ocular motions intact. Lids and lashes normal. Conjunctiva and sclera are non-icteric and not injected. Cornea within normal limits. Periorbital areas with no swelling, redness, or edema. Neck: Trachea midline, no thyromegaly or masses palpated, and no cervical lymphadenopathy. Supple, full range of motion without nuchal rigidity, or vertebral point tenderness. No Meningismus. Chest/axilla: Normal chest wall appearance and motion. Nontender with no deformity. No lesions are appreciated. Cardiovascular: Regular rate and rhythm with a normal S1 and S2. No gallops, murmurs, or rubs. Normal PMI, no JVD. No pulse deficits. Respiratory: Lungs have equal breath sounds bilaterally, clear to auscultation and percussion. No rales, rhonchi or wheezes noted. No increased work of breathing, no retractions or nasal flaring. Abdomen/GI: Soft, non-tender, with normal bowel sounds. No distension or tympany. No guarding or rebound. No evidence of tenderness throughout. Back: No spinal tenderness. No costovertebral tenderness. Full range of motion. Skin: Warm, dry with normal turgor. Normal color with no rashes, no lesions, and no evidence of cellulitis. MS/ Extremity: Pulses equal, no cyanosis. Neurovascular intact. Full, normal range of motion. Neuro: Awake and alert, GCS 15, oriented to person, place, time, and situation. Cranial nerves II-XII grossly intact. Motor strength 5/5 in all extremities. Sensory grossly intact. Cerebellar exam normal. Normal gait. Psych: Awake, alert, with orientation to person, place and time. Behavior, mood, and affect are within normal limits. Vital Signs: 18:35 BP 92 / 63; Pulse 111; Resp 18 S; Temp 97.9(TE); Pulse Ox 97% on R/A; Weight 49.44 kg ca1 (R); Height 5 ft. 4 in. (162.56 cm) (R); Pain 8/10; 21:00 BP 113 / 81; Pulse 115; Resp 17; Pulse Ox 97% ; ll2 22:00 BP 127 / 73; Pulse 109; Resp 18; Pulse Ox 98% on R/A; ll2 23:00 BP 145 / 79; Pulse 109; Resp 20; Pulse Ox 98% on R/A; ll2 18:35 Body Mass Index 18.71 (49.44 kg, 162.56 cm) ca1 MDM: 04/24 02:52 Differential diagnosis: gastritis. [facility] 02:53 Differential diagnosis: Dehydration, Viral Syndrome, UTI, Vomiting. Data reviewed: [facility] vital signs, nurses notes, old medical records, lab test result(s), cardiac enzymes, CBC, Flu: urinalysis, EKG, radiologic studies, CT scan, plain films. Data interpreted: Pulse oximetry: on room air is 98 %. Interpretation: normal. Counseling: I had a detailed discussion with the patient and/or guardian regarding: the historical points, exam findings, and any diagnostic results supporting the discharge/admit diagnosis, the presence of at least one elevated blood pressure reading (>120/80) during this emergency department visit, lab results, radiology results, the need for outpatient follow up, to return to the emergency department if symptoms worsen or persist or if there are any questions or concerns that arise at home. Response to treatment: the patient's symptoms have resolved after treatment, the patient's blood pressure is in an acceptable range, mental status has returned to baseline, the patient no longer shows bradycardia, the patient is not short of breath, the patient is not tachycardic, the patient's pain is gone, the patient's temperature has normalized, the patient is now symptom free, patient is well hydrated. 02:55 Patient medically screened. [facility] 04:53 Refusal of service: The patient/guardian displays adequate decision making capability [facility] and despite a detailed discussion of alternatives, benefits, risks, and consequences refuses: Admission to the hospital for further work-up and treatment. 04/23 19:25 Order name: Basic Metabolic Panel [facility] 04/23 19:25 Order name: CBC with Diff [facility] 04/23 19:25 Order name: LFT's [facility] 04/23 19:25 Order name: Magnesium [facility] 04/23 19:25 Order name: NT PRO-BNP; Complete Time: 21:46 [facility] 04/23 19:25 Order name: PT-INR; Complete Time: 00:38 [facility] 04/23 19:25 Order name: Troponin (emerg Dept Use Only); Complete Time: 21:46 [facility] 04/23 19:25 Order name: Phosphorus; Complete Time: 21:46 [facility] 04/23 19:25 Order name: TSH; Complete Time: 21:46 [facility] 04/23 19:26 Order name: Basic Metabolic Panel; Complete Time: 21:46 [facility] 04/23 19:26 Order name: CBC with Automated Diff; Complete Time: 21:24 [facility] 04/23 19:26 Order name: Liver (Hepatic) Function; Complete Time: 21:46 [facility] 04/23 19:25 Order name: XRAY Chest (1 view); Complete Time: 20:49 [facility] 04/23 19:25 Order name: CT Head Brain wo Cont; Complete Time: 20:49 [facility] 04/23 19:26 Order name: Magnesium; Complete Time: 21:46 [facility] 04/23 20:51 Order name: Lipase; Complete Time: 21:46 [facility] 04/23 21:25 Order name: T4 Free; Complete Time: 21:46 [facility] 04/23 22:05 Order name: Urine Culture [facility] 04/23 22:08 Order name: Urine Dipstick--Ancillary (enter results); Complete Time: 22:32 3 04/23 22:30 Order name: COVID-19/FLU A+B; Complete Time: 22:32 ED[facility] 04/23 22:32 Order name: Blood Culture Adult (2) [facility] 04/24 00:20 Order name: D-Dimer; Complete Time: 00:38 ED[facility] 04/24 00:39 Order name: CT Chest For PE Angio [facility] 04/23 19:25 Order name: EKG; Complete Time: 19:27 [facility] 04/23 19:25 Order name: Cardiac monitoring; Complete Time: 21:45 [facility] 04/23 19:25 Order name: EKG - Nurse/Tech; Complete Time: 21:45 [facility] 04/23 19:25 Order name: IV Saline Lock; Complete Time: 21:45 [facility] 04/23 19:25 Order name: Labs collected and sent; Complete Time: 23:44 [facility] 04/23 19:25 Order name: O2 Per Protocol; Complete Time: 23:44 [facility] 04/23 19:25 Order name: O2 Sat Monitoring; Complete Time: 23:44 [facility] 04/23 19:25 Order name: Urine Dipstick-Ancillary (obtain specimen); Complete Time: 01:42 [facility] 04/23 19:25 Order name: Urine Test (obtain specimen); Complete Time: 22:36 mh7 Administered Medications: 04/23 21:17 Drug: Benadryl 25 mg Route: IVP; Site: left hand; ll2 21:18 Drug: NS 0.9% 1000 ml Route: IV; Rate: 1000 ml; Site: left hand; ll2 21:18 Drug: Pepcid 20 mg Route: IVP; Site: left hand; ll2 21:18 Drug: Reglan 10 mg Route: IVP; Site: left hand; ll2 22:36 Drug: Rocephin - (cefTRIAXone) 1 grams Route: IVPB; Infused Over: 30 mins; Site: right ll2 hand; Disposition: 04/24/20 02:55 Discharged to Home. Impression: Coronavirus infection, unspecified, Urinary tract infection, site not specified, Dehydration. - Condition is Stable. - Discharge Instructions: Dehydration, Adult, Urinary Tract Infection, Adult, [id number], COVID-19. - Prescriptions for Zofran ODT 4 mg Oral tablet,disintegrating - place 1 tablet by TRANSLINGUAL route every 8 hours As needed; 6 tablet. Keflex 500 mg Oral Capsule - take 1 capsule by ORAL route every 12 hours for 10 days; 20 capsule. Albuterol Sulfate 90 mcg/actuation - inhale 1-2 puff by INHALATION route every 4-6 hours; 1 Inhaler. - Medication Reconciliation Form, Thank You Letter, Antibiotic Education, Prescription Opioid Use form. - Follow up: Private Physician; When: 1 - 2 days; Reason: Worsening of condition, Recheck today's complaints, Continuance of care, Re-evaluation by your physician. - Problem is new. - Symptoms have improved. Signatures: Dispatcher [employer] EDFL Montse Doyle, RN RN ca1 Christen Veloz RN RN ll2 Fracisco Gurrola MD MD 7 Yael, Harry tt3 Corrections: (The following items were deleted from the chart) 20:51 19:57 LIPASE+C.LAB.BRZ ordered. EDMS EDMS 21:45 19:26 CORONAVIRUS+MR.LAB.BRZ ordered. EDFL EDMS 21:46 19:26 Influenza Screen (A \T\ B)+BA.LAB.BRZ ordered. EDFL EDMS 04/24 00:20 00:01 D-DIMER+COAG.LAB.BRZ ordered. EDFL EDFL 03:20 02:55 04/24/2020 02:55 Discharged to Home. Impression: Coronavirus infection, tt3 unspecified; Urinary tract infection, site not specified; Dehydration. Condition is Stable. Forms are Medication Reconciliation Form, Thank You Letter, Antibiotic Education, Prescription Opioid Use. Follow up: Private Physician; When: 1 - 2 days; Reason: Worsening of condition, Recheck today's complaints, Continuance of care, Re-evaluation by your physician. Problem is new. Symptoms have improved. mh7
[2020-04-24 03:24] VITALS: TEMP 97.9
[2020-04-24 03:26] VITALS: O2SAT 98
[2020-04-24 03:28] VITALS: BP 145/79
--- NOTE | 2020-04-24 07:21 | EKG ---
Test Date: 2020-04-23 Test Time: 22:05:18 Scientist Engineer: FABRICE MEASUREMENT RESULTS: Intervals: Rate: 110 DC: 146 QRSD: 72 QT: 338 QTc: 457 [place]: P: 67 DC: 146 QRS: 68 T: 72 INTERPRETIVE STATEMENTS: Sinus tachycardia Otherwise normal ECG Compared to ECG 01/04/2020 15:08:18 No significant changes Electronically Signed On 04-24-20 07:20:20 LINE TESTER by Rogerio Smith
--- NOTE | 2020-04-24 13:01 | RAD REPORT ---
EXAM DESCRIPTION: CT - Chest For Pe Angio - 04/24/2020 8:59 am CLINICAL HISTORY: 54 years Female generalized weakness, nausea and vomiting x2 days. TECHNIQUE: Following the administration of intravenous contrast, multiple high-resolution axial imag es of the chest were performed followed by sagittal and coronal reconstructed images. Coronal oblique MIP images were also reconstructed. The CT study is performed according to ALARA (as low as reasonab ly achievable) or ALARA/IMAGE GENTLY, with automatic adjustment of mA and/or kV according to patient size. Performed on: 04/24/2020 at 1:41 AM COMPARISON: CTA chest performed on 05/10/2019 FINDINGS: There is satisfactory visualization and contrast opacification of pulmonary arteries. No definite intra-arterial filling defects are identified to suggest acute or chronic pulmonary embolis m. The thoracic aorta is normal in caliber and contour without evidence of aneurysm or dissection. The lungs are well expanded and are clear. There is minimal fibrosis and/or atelectasis in the inferi or hemithoraces. There is no evidence of a pneumothorax. There are no pleural effusions. The heart is normal in size. There is no pericardial effusion. There is no reflux of contrast into th e hepatic veins to suggest right heart strain.The RV/LV ratio is within normal limits. There is no evidence of hilar, mediastinal or axillary lymphadenopathy. No acute osseous abnormality is identified. The visualized upper abdominal structures are unremarkable. IMPRESSION: 1. No CT evidence to suggest acute or chronic pulmonary embolism, aortic aneurysm or aor tic dissection. 2. No evidence of acute intrathoracic disease. There is minimal fibrosis and/or atelectasis in the in ferior hemithoraces. Electronically signed by: Carolyn Villanueva DO 04/24/2020 2:19 AM COMMERCIAL CREDIT ANALYST Due to temporary technical issues with the PACS/Fluency reporting system, reports are being signed by the in house radiologists without review as a courtesy to insure prompt reporting. The interpreting radiologist is fully responsible for the content of the report.
== END 2020-04-24 03:20 | disposition home or self-care (01) ==
LOC: ER 18:22
DX: U07.1 COVID-19 (principal); N39.0 Urinary tract infection, site not specified; E86.0 Dehydration; E11.40 Type 2 diabetes mellitus with diabetic neuropathy, unspecified; Z79.4 Long term (current) use of insulin
CPT/HCPCS: 0240U; 36415; 70450; 71045; 71275; 80048; 80076; 81003; 83690; 83735; 83880; 84100; 84439; 84443; 84484; 85025; 85379; 85610; 87040; 87077; 87086; 87088; 87186; 87205; 93005; 99283; J0696; J1200; J2765; J7030; Q9967

== ENCOUNTER 2020-05-10 10:07 | Emergency (ER) | payer SELFPAY ==
--- OUTSIDE RECORDS SUMMARY | 2020-05-10 10:54 | XMS REPORT | Clinical Summary ---
:1965 Author Organization [facility] Address [address] [place] [address] Care Team Providers Name Role Phone Denae [...] VACCINE (#1) 2019 Results Not on fileafter 05/10/2019
--- OUTSIDE RECORDS SUMMARY | 2020-05-10 11:01 | XMS REPORT | Continuity of Care Document ---
:1965 Author Organization [facility] Mob[employer] Information Silver Care Team Providers Name Role Phone Inside Warehouse Unavailable Un available Problems Problem Status Onset Classification Date Comments Sourc e Date Reported Radiculopathy, 02/26/20 02/28/2017 [facility] cervical region 17 [facility] Hyperglycemia, 02/26/20 03/01/2017 [facility] unspecified 17 Hospital Fever, 02/26/20 03/01/2017 [facility] unspecified 17 Hospital Displaced 12/28/19 12/30/2016 [facility] [facility] unspecified 17 Hospital fracture of right lesser toe(s), initial encounter for closed fracture HURT TOES Active 12/28/[address] ABDOMINAL PAIN Active 02/07/20 [address] [place] EGD Active 02/05/20 [facility] 12 BLOOD SUGAR Active 11/28/19 [...] [address] BLEEDING ABD PAIN Active 01/06/20 [facility] 10 EAR PAIN Active 10/10/19 [facility] [place] [address] [place] UPPER ABDOMINAL Active 09/21/19 [facility] PAIN 10 [place] ABD PAIN, HIGH Active 08/16/19 [facility] SUGAR 10 [place] Abdominal pain Active Problem 02/19/2012 [facility], [place] Cellulitis Active Problem 02/19/2012 [facility], [place] Chest pain Active Problem 02/19/2012 [facility], [place] Hyperglycemia Active Problem 02/19/2012 [facility], [place] UTI - Urinary Active Problem 02/19/2012 tract infection [facility], [place] Diabetes mellitus Active Problem 03/01/2017 [facility] [place] (disorder) [facility] Restless legs Active Problem 03/01/2017 [...] G.I. No Longer Cocktail = Active 2016 [place] antacid with Hospital simethicone 22.5 mL - lidocaine viscous 7.5 mL Zofran Notes: (Same Inactive as: Zofran) 2016 [place] MEDICATION Hospital WASTE Product Size: 4 mg Product Wasted: ___ mg Zofran Notes: (Same Inactive as: Zofran) 2016 [place] MEDICATION Hospital WASTE Product Size: 4 mg Product Wasted: ___ mg Morphine Notes: (Same Inactive as:MORPhine 2017 [place] Sulfate) Hospital Lidocaine Notes: Inactive Hydrochloride 10 Preservative 2016 [facility] MG/ML Injectable free. (Same Ho spital Solution as: Xylocaine MPF) Insulin regular 60 units) Inactive WASTE: F/P - 2017 [place] Black; E - [facility] Trash Bin Stable for 28 days at room temperature Expires in days from Date Sodium Chloride 2,000 mL, 1000 Inactive 0.9% (Bolus) IV ml/hr, Infuse 2016 [facility] Over: 2 hr, Hospital Route: IV, 2,000, Drug form: INJ, ONCE, Priority: STAT, Dosing Weight 49.545 kg, Start date: 02/25/17 20:22:00 MATTE CUTTER, Stop date: 02/25/17 20:22:00 MATTE CUTTER ibuprofen 800 mg 800 mg = 1 [...] Active 2016 [facility] Ketorolac 4 days No Longer MEDICATION Active 2016 [place] WASTE Hospital Product Size: 30 mg Product Wasted: ___ mg Ciprofloxacin 500 500 mg = 1 Active MH [facility] Oral Tablet tab, PO, Q12H, 2017 [facility] [Cipro] for UTI, X 3 Hospital day, # 6 tab, 0 Refill(s), Pharmacy: [facility]/pharmacy #[id number] Humalog 100 4 unit, SUB-Q, Active units/mL TID-Before 2017 [place] Meals, hold Hospital insulin injection if your blood sugar is less than 140 mg/dL., # 10 mL, 0 Refill(s), Pharmacy: [facility]/pharmacy #[id number] pantoprazole 40 40 mg = 1 tab, Active 01/26/ H [facility] Enteric Coated PO, Daily, # 2017 [facility] Tablet [Protonix] 30 tab, 0 Hosp ital Refill(s), Pharmacy: [facility]/pharmacy #[id number] Calcium Carbonate 500 mg = 1 Active 500 MG Chewable tab, PO, TID, 2017 [facility] Tablet # 6 tab, 0 Hospital Refill(s), Pharmacy: [facility]/pharmacy #[id number] Insulin Glargine 15 unit, Active 100 UNT/ML SUB-Q, Daily, 2016 [place] Injectable # 10 mL, 0 Hospital Solution [Lantus] Refill(s), Pharmacy: [facility]/pharmacy #[id number] Calcium Gluconate Notes: WASTE: Inactive F/P - Sink; E 2016 [place] - [facility] Hospital Trash Bin Calcium Carbonate Notes: (Same Inactive As: [facility]) 2017 [place] Calcium Hospital Carbonate 500 mg = 200 mg elemental calcium Dose = mg calcium carbonate ( mg elemental calcium) Insulin Glargine Notes: Same as No Longer 100 UNT/ML Lantus Active 2016 [place] Injectable Solostar PEN Hospital Solution [Lantus] Do not hold insulin without contacting prescriber "single patient use only" WASTE: F/P - Black; E - [facility] Trash Bin Stable for 28 days at room temperature. Expires in days from Date Requip Notes: (Same No Longer as: Requip) Active 2017 [place] [facility] Lyrica Notes: (Same No Longer as: Lyrica) Active 2017 [facility] Calcium Carbonate Notes: (Same Inactive As: Tums) 2017 [place] Calcium Hospital Carbonate 500 mg = 200 mg elemental calcium Dose = mg calcium carbonate ( mg elemental calcium) Protonix Notes: Tablet No Longer should not be Active 2017 [place] chewed or Hospital crushed. (Same as: Protonix) Magnesium Oxide Notes: (Same No Longer H as: Mag-Ox Active 2017 [place] 400) Magnesium Hospital oxide [id number] elemental magnesium Dose=____mg magnesium oxide (___mg elemental magnesium) Ketorolac 4 days No Longer MEDICATION Active 2017 [place] WASTE Hospital Product Size: 30 mg Product Wasted: ___ mg Docusate Notes: (Same No Longer as: Colace) Active 2016 [place] (Do Not Crush) [facility] Insulin Glargine 50 units, No Longer 100 UNT/ML SUB-Q, Daily, Active 2016 [place] Injectable 0 Refill(s) [facility] Solution [Lantus] ropinirole 2 MG 2 mg = 1 tab, Active Oral Tablet PO, Bedtime, 0 2016 [place] [Requip] Refill(s) [facility] pregabalin 75 MG 75 mg = 1 cap, Active Oral Capsule PO, Bedtime, 0 2016 [facility] [Lyrica] Refill(s) [facility] Insulin Lispro 60 units) Inactive WASTE: F/P - 2017 [place] Black; E - [facility] Trash Bin Stable for 28 days at room temperature. Expires in days from Date Ceftriaxone Notes: (Same No Longer As: Rocephin). Active 2017 [place] Use with 100 Hospital mL NS and infuse over 30 min MEDICATION WASTE Product Size: 1000 mg Product Wasted: ___ mg Hydralazine Notes: (Same No Longer as: Active 2016 [place] Apresoline) [facility] Push over 5 minutes Glucagon 1 mg, Route: No Longer IM, Drug form: Active 2016 [place] PDR/INJ, PRN, Hospital Dosing Weight 51.449, kg, PRN Blood Glucose Results, Start date: 01/25/17 1:35:00 CDT, Duration: 30 day, Stop date: 02/24/17 0:34:00 MATTE CUTTER Insulin Lispro 60 units) No Longer WASTE: F/P - Active 2016 [place] Black; E - [facility] Trash Bin Stable for 28 days at room temperature. Expires in days from Date Dextrose 50% 25 gm, 50 mL, No Longer Syringe Route: IVP, Active 2016 [place] Drug Form: Hospital INJ, Dosing Weight 51.449, kg, PRN, PRN Blood Glucose Results, Start date: 01/25/17 1:35:00 CDT, Duration: 30 day, Stop date: 02/24/17 0:34:00 MATTE CUTTER Acetaminophen Notes: Do not No Longer exceed 4 Active 2017 [place] gm/day. (Same Hospital as: Tylenol) Acetaminophen 325 Notes: (Same Inactive MG / Hydrocodone as: Mineral 2017 [facility] Bitartrate 5 MG 325/5) Do not H ospital Oral Tablet exceed 4gm/day of acetaminophen. Ondansetron Notes: (Same No Longer as: Zofran) Active 2017 [place] MEDICATION Hospital WASTE Product Size: 4 mg Product Wasted: ___ mg sodium chloride 1,000 mL, No Longer 0.9% 1000 ml INJ Rate: 75 Active 2017 [place] 1,000 mL ml/hr, Infuse Hospital over: 13.3 hr, Route: IV, Dosing Weight 51.449 kg, Total Volume: 1,000, Start date: 01/25/17 1:32:00 CDT, Stop date: 02/24/17 1:31:00 MATTE CUTTER Saline Flush 0.9% Notes: (Same No Longer as: BD Active 2016 [place] Posiflush) Hospital Ketorolac 15 mg, Route: Inactive IV, ONCE, 2016 [place] Dosing Weight Hospital 52.273, kg, Start date: 01/25/17 0:00:00 CDT, Stop date: 01/25/17 0:00:00 CDT Famotidine 20 mg, Route: Inactive IVP, ONCE, 2016 [place] Dosing Weight Hospital 52.273, kg, Priority: STAT, [...] 4 mg, Route: Inactive IVP, Drug 2017 [place] form: INJ, Hospital ONCE, Dosing Weight 52.273, kg, Priority: STAT, Start date: 01/24/17 22:07:00 CDT, Stop date: 01/24/17 22:07:00 CDT Morphine Notes: (Same Inactive as:MORPhine 2017 [place] Sulfate) Hospital Acetaminophen 300 1 - 2 tab, PO, No Longer 12/27 MG / Codeine Q4H, PRN Pain, Active 2016 [facility] Phosphate 30 MG X 2 day, # 30 Ho spital Oral Tablet tab, 0 [Tylenol with Refill(s) Codeine #3] Acetaminophen 325 Notes: (Same Inactive MG / Hydrocodone as: Mineral 2017 [place] Bitartrate 5 MG 325/5) Do not H ospital Oral Tablet exceed 4gm/day [Mineral 5/325] of acetaminophen. Sodium Chloride 500 mL, Rate: IV No Longer [facility] Sugar 0.9% (Bolus) IV 500 ml/hr, Active [facility] 500 mL Infuse over: 1 hr, Route: [...] ketorolac 30 mg, Route: IVP No Longer [facility] Sug ar IVP, Drug Active 2011 [place] form: INJ, ONCE, Dosing Weight 50, kg, Priority: STAT, Start date: 11/28/11 21:51:00, Stop date: 11/28/11 21:51:00 ondansetron 4 mg, Route: IVP No Longer [facility] Hein gar IVP, ONCE, Active 2011 [facility] Dosing Weight 50, kg, Priority: STAT, Start date: 11/28/11 21:51:00, Stop date: 11/28/11 21:51:00 Sodium Chloride 1,000 mL, IVPB No Longer [facility] S ugar 0.9% (Bolus) IV Rate: 1,000 Active 2011 [facility] 1,000 mL ml/hr, Infuse over: 1 hr, Route: IVPB, kg, Total Volume: 1,000, Bolus Dose, Priority: STAT, Start date: 11/28/11 21:51:00, Duration: 1 doses or times, Stop date: 11/28/11 22:50:00 Saline Flush 0.9% 5 ml, Route: IVP No Longer [facility] Sugar IVP, Drug Active [place] Form: INJ, kg, PRN, PRN Line Flush, Start date: 11/28/11 21:51:00, Duration: 30 day, Stop date: 12/28/11 21:50:00 Mineral 5/325 oral 1-2 tab, PO, PO Active [facility] Sugar tablet Q4-6H, PRN, 2011 tab, Pain, Substitution Allowed, Soft Stop Zofran ODT 4 mg 4 mg, 1 tab, PO Active [facility] Sugar oral tablet, PO, TID, PRN, 2011 disintegrating 10 tab, Nausea and Vomiting, Substitution Allowed morphine Sulfate 4 mg, 2 mL, IVP No Longer [facility] Route: IVP, Active [facility] Drug form: INJ, ONCE, Priority: STAT, Start [...] Longer [facility] IVP, Drug Active 2011 [facility] Form: INJ, PRN, PRN Line Flush, Start [...] regular 5 unit, 0.05 IVP No Longer [facility] Sugar mL, Route: Active 2011 [facility] IVP, Drug form: SOLN, ONCE, Priority: STAT, Start date: 05/23/11 1:10:00, Stop date: 05/23/11 1:10:00 Visipaque 32,000 mg, 100 IV Active [facility] Suga r mL, Route: IV, 2011 [facility] Drug form: INJ, ONCE, Start date: 05/22/11 23:47:00, Stop date: 05/22/11 23:47:00 Insulin regular 5 unit, 0.05 SUB-Q No Longer [facility] Sugar mL, Route: Active 2011 [facility] SUB-Q, Drug form: SOLN, ONCE, Priority: STAT, Start date: 05/22/11 23:36:00, Stop date: 05/22/11 23:36:00 morphine Sulfate 2 mg, 0.4 mL, IVP No Longer [facility] Sugar Route: IVP, Active 2011 [facility] Drug form: INJ, ONCE, Priority: STAT, Start date: 05/22/11 23:04:00, Stop date: 05/22/11 23:04:00 ondansetron 4 mg, 2 mL, IVP No Longer [facility] Sug ar Route: IVP, Active 2011 [facility] Drug form: INJ, ONCE, Priority: STAT, Start date: 05/22/11 23:04:00, Stop date: 05/22/11 23:04:00 Sodium Chloride 500 mL, Rate: IV No Longer [facility] Sugar 0.9% (Bolus) IV 1,000 ml/hr, Active 2011 [facility] 500 mL Infuse over: 0.5 hr, Route: IV, Total Volume: 500, Bolus dose, Priority: STAT, Start date: 05/22/11 23:04:00, Duration: 1 doses or times, Stop date: 05/22/11 23:33:00 Saline Flush 0.9% 5 ml, Route: IVP No Longer [facility] Sugar IVP, Drug Active 2011 [facility] Form: INJ, PRN, PRN Line Flush, Start date: 05/22/11 23:04:00, Duration: 24 hr, Stop date: 05/23/11 23:03:00 Pyridium 200 mg 200 mg, 1 tab, PO Active [facility] Sugar oral tablet PO, TID, 9 2011 [facility] tab, Substitution Allowed Cipro 500 mg oral 500 mg, 1 tab, PO Active [facility] Sugar tablet PO, Q12H, 28 2011 [facility] tab, Substitution Allowed, TAB Pyridium 200 mg, 2 tab, PO No Longer [facility] Sug ar Route: PO, Active 2011 [facility] Drug form: TAB, ONCE, Priority: STAT, Start date: 05/07/11 20:03:00, Stop date: 05/07/11 20:03:00 Cipro 500 mg, 2 tab, PO No Longer [facility] S[place] r Route: PO, Active 2011 [facility] Drug form: TAB, ONCE, Priority: STAT, Start date: 05/07/11 20:03:00, Stop date: 05/07/11 20:03:00 Cipro 500 mg oral 500 mg, 1 tab, PO Active [facility] Sugar tablet PO, BID, 20 2011 [facility] tab, Substitution Allowed Zofran ODT 4 mg 4 mg, 1 tab, PO Active [facility] oral tablet, PO, TID, PRN, 2011 disintegrating 10 tab, Nausea and Vomiting, Substitution Allowed Mineral 10/325 oral 1 tab, PO, PO Active [facility] Sugar tablet Q4-6H, PRN, 24 2011 [facility] tab, as needed for pain, Substitution Allowed, Maintenance hydromorphone 1 mg, 0.5 mL, IVP No Longer [facility] Route: IVP, Active 2011 [facility] Drug form: INJ, ONCE, Priority: STAT, Start date: 04/19/11 23:38:00, Stop date: 04/19/11 23:38:00 Insulin regular 10 unit, 0.1 IVP No Longer [facility] mL, Route: Active 2011 [facility] IVP, Drug form: SOLN, ONCE, Priority: STAT, [...] magnesium citrate 150 ml, PO, PO Active [place] 03/[facility] Sugar 8.85% oral liquid ONCE, 300 ml, 2010 [place] Substitution Allowed, Maintenance, LIQ MiraLax oral 17 gm, PO, PO Active [place] 03/26[facility] Sugar powder for Daily, 255 gm, 2010 [place] reconstitution Substitution Allowed, PDR/REC Phenergan 25 mg 25 mg, 1 tab, PO Active [place] 03/26[facility] Sugar oral tablet PO, Q6H, PRN, 2010 [place] 15 tab, Nausea, Substitution Allowed Vicodin 5/500 1 tab, PO, PO Active [place] 03/26[facility] Suga r oral tablet Q4-6H, PRN, 2010 tab, for Pain, Substitution Allowed, Maintenance Sodium Chloride 1,000 mL, IV No Longer [place] S ugar 0.9% (Bolus) IV Rate: 1,000 Active 2010 1,000 mL ml/hr, Infuse over: 1 hr, Route: IV, Total Volume: 1,000, Bolus Dose, Priority: STAT, Start date: 03/25/11 21:24:00, Duration: 1 doses or times, Stop date: 03/25/11 22:23:00 Insulin regular 10 unit, 0.1 IVP No Longer [place] 03/26/ H [facility] mL, Route: Active 2010 IVP, Drug form: SOLN, ONCE, Priority: STAT, Start date: 03/25/11 21:16:00, Stop date: 03/25/11 21:16:00 Omnipaque 300 30,000 mg, 100 IV Active [place] Sugar mL, Route: IV, 2010 Drug form: SOLN, ONCE, Start date: 03/25/11 21:15:00, Stop date: 03/25/11 21:15:00 Saline Flush 0.9% 5 ml, Route: IVP No Longer [place] Sugar IVP, Drug Active 2010 Form: INJ, PRN, PRN Line Flush, Start date: 03/25/11 20:19:00, Duration: 30 day, Stop date: 04/24/11 20:18:00 ondansetron 4 mg, 2 mL, IVP No Longer [place] Sug ar Route: IVP, Active 2010 Drug form: INJ, ONCE, Priority: STAT, Start date: 03/25/11 20:19:00, Stop date: 03/25/11 20:19:00 morphine Sulfate 4 mg, 0.8 mL, IVP No Longer [place] Sugar Route: IVP, Active 2010 Drug form: [...] [place] [place] [facility] Route: PO, Active [facility] Drug form: TAB, [id number], Start date: 02/11/11 11:00:00, Duration: 30 day, [...] Longer [facility] [facility] IVP, Drug Active 2010 [facility] Form: INJ, Q12H, Start date: 02/11/11 9:00:00, [...] Route: PO, Active 2010 Drug form: TAB, [id number], Start date: 02/11/11 3:00:00, Duration: 30 day, [...] Sliding Scale - mL, Route: Active 2010 [facility] Low SUB-Q, Drug form: SOLN, Sliding Scale, PRN Blood Glucose Results, Start date: 02/11/11 2:05:00, Duration: 30 day, Stop date: 03/13/11 1:04:00 glucagon 1 mg, Route: IM No Longer [facility] IM, Drug form: Active 2010 [facility] PDR/INJ, PRN, PRN Blood Glucose Results, Start date: 02/11/11 2:05:00, Duration: 30 day, Stop date: 03/13/11 1:04:00 Dextrose 50% 25 gm, 50 ml, IVP No Longer [facility] Syringe Route: IVP, 2010 [facility] Drug Form: INJ, PRN, PRN Blood Glucose Results, Start date: 02/11/11 2:05:00, Duration: 30 day, Stop date: 03/13/11 1:04:00 Saline Flush 0.9% 5 ml, Route: IVP No Longer [facility] IVP, Drug Active 2010 [facility] Form: INJ, PRN, PRN Line Flush, Start date: 02/11/11 2:05:00, Duration: 30 day, Stop date: 03/13/11 1:04:00 nitroglycerin SL 0.4 mg, 1 tab, SL No Longer [facility] Tab Route: SL, Active 2010 [facility] Drug form: TAB, Q5Min, PRN Chest Pain, Start date: 02/11/11 2:05:00, Duration: 3 doses or times, Stop date: Limited # of times morphine Sulfate 2 mg, 0.4 mL, IVP No Longer [facility] Route: IVP, Active 2010 [facility] Drug form: INJ, Q15Min, PRN Chest Pain, Start date: 02/11/11 2:05:00, Duration: 2 doses or times, Stop date: Limited # of times acetaminophen 650 mg, 2 tab, PO No Longer [facility] Route: PO, Active 2010 [facility] Drug form: TAB, Q4H, PRN Headache, Start date: 02/11/11 2:05:00, Duration: 30 day, Stop date: 03/13/11 2:04:00 diphenhydrAMINE 25 mg, 1 tab, PO No Longer [facility] Route: PO, Active 2010 [facility] Drug form: TAB, Bedtime, PRN Insomnia, Start [...] [place] [facility] Route: PO, Active 2010 [facility] Drug form: TAB, Q8H, PRN Nausea & Vomiting, Start date: 02/11/11 2:05:00, Duration: 30 day, Stop date: 03/13/11 2:04:00 temazepam 15 mg, 1 cap, PO No Longer [place] [facility] Route: PO, 2010 [facility] Drug form: CAP, Bedtime, PRN Insomnia, Start date: 02/11/11 2:05:00, Duration: 30 day, Stop date: 03/13/11 2:04:00 aspirin 325 mg 325 mg, 1 tab, PO No Longer [facility] tablet Route: PO, Active 2010 [facility] Drug form: TAB, ONCE, Start date: 02/11/11 2:05:00, Stop date: 02/11/11 2:05:00 morphine Sulfate 2 mg, 0.4 mL, IVP No Longer [place] 02/11 [place] Route: IVP, Active 2010 [facility] Drug form: INJ, ONCE, Priority: STAT, Start date: 02/11/11 0:37:00, Stop date: 02/11/11 0:37:00 Visipaque 48,000 mg, 150 IV No Longer [place] Sugar mL, Route: IV, Active 2010 [facility] Drug form: INJ, ONCE, Start date: 02/10/11 [...] H [facility] ointment Route: TOP, Active 2010 [facility] Drug Form: OINT, ONCE, STAT, Start date: 02/10/11 21:47:00, Stop date: 02/10/11 21:47:00 nitroglycerin 0.4 mg, 1 tab, SL No Longer [facility] Route: SL, Active 2010 [facility] Drug form: TAB, Q5Min, PRN Chest Pain, (Hold if SBP < = 90 mmHg or if < = 100mmHg with symptomatic dizziness), Start date: 02/10/11 21:47:00, Duration: 3 doses or times, Stop date: Limited # of times morphine Sulfate 2 mg, Route: IVP No Longer [facility] IVP, ONCE, Active 2010 [facility] Priority: STAT, Start date: 02/10/11 21:47:00, Stop date: 02/10/11 21:47:00 Saline Flush 0.9% 5 ml, Route: IVP No Longer [place] 02/11 [place] IVP, PRN, PRN Active 2010 [facility] Line Flush, Start date: 02/10/11 21:47:00, Duration: 30 day, Stop date: 03/12/11 20:46:00 aspirin 325 mg 325 mg, 1 tab, PO No Longer [facility] tablet, enteric Route: PO, Active [facility] coated Drug form: ECTAB, Daily, Start date: 01/16/11 9:00:00, Duration: 30 day, Stop date: 02/14/11 9:00:00 Requip 1 mg, 1 tab, PO No Longer [place] [facility] Route: PO, Active 2010 [facility] Drug form: TAB, Bedtime, Start date: 01/15/11 21:00:00, Duration: 30 day, Stop date: 02/13/11 21:00:00 Nitrostat 0.4 mg 1 tab, SL, SL Active [facility] sublingual tablet Q5Min, PRN, [address] [place] 100 tab, Chest Pain, Substitution Allowed metoprolol 25 mg 12.5 mg, PO, PO Active [facility] Sugar oral tablet Q12H, 30 tab, 2010 Substitution Allowed, TAB aspirin 325 mg 9,750 mg, 30 PO Active [facility] S ugar tablet, enteric tab, PO, 2010 coated Daily, 30 tab, Substitution Allowed, ECTAB metoprolol 12.5 mg, 0.5 PO No Longer [facility] Sug ar tab, Route: Active 2010 PO, Drug form: TAB, Q12H, Priority: NOW, Start date: 01/15/11 10:36:00, Duration: 30 day, Stop date: 02/14/11 9:00:00 Fioricet oral 1 tab, PO, PO Active [facility] Suga r tablet Q4H, PRN, 2010 tab, Headache, Substitution Allowed, Maintenance, TAB Fioricet 1 tab, Route: PO No Longer [facility] Suga r PO, Drug Form: Active 2010 TAB, Q4H, PRN Headache, Start date: 01/15/11 9:15:00, Duration: 30 day, Stop date: 02/14/11 9:14:00 aspirin 81 mg 81 mg, 1 tab, PO No Longer [facility] Sugar tablet, enteric Route: PO, Active 2010 [...] 01/15/ H [facility] mL, Route: Active [facility] SUB-Q, Drug form: INJ, Bedtime, Start date: 01/14/11 21:00:00, Duration: 30 day, Stop date: 02/12/11 21:00:00 Lantus 70 unit, SUB-Q No Longer [place] [facility] Route: SUB-Q, Active 2010 [facility] Bedtime, Start date: 01/14/11 21:00:00, Duration: 30 day, Stop date: 02/12/11 21:00:00 glucagon 1 mg, Route: IM No Longer [place] [facility] IM, Drug form: Active 2010 [facility] PDR/INJ, PRN, PRN Blood Glucose Results, Start date: 01/14/11 19:22:00, Duration: 30 day, Stop date: 02/13/11 19:21:00 Insulin (Novolog) 6 unit, 0.06 SUB-Q No Longer [place] [facility] Sliding Scale - mL, Route: Active 2010 [facility] Very High SUB-Q, Drug form: SOLN, Sliding [...] Longer [place] [facility] IVP, Drug Active 2010 [facility] Form: INJ, PRN, PRN Line Flush, Start [...] S ugar PO, Drug Form: Active 2010 [facility] SUSP, ONCE, Routine, Start date: 01/14/11 17:08:00, [...] 0.9% 5 ml, Route: IVP No Longer [facility] Sugar IVP, Drug Active 2010 Form: INJ, PRN, PRN Line Flush, Start date: 01/14/11 15:20:00, Duration: 30 day, Stop date: 02/13/11 15:19:00 ibuprofen 400 mg 1 tab, PO, PO Active [facility] S ugar oral tablet Q4H, PRN, 2010 tab, Pain, Substitution Allowed acetaminophen-hyd 1 tab, PO, PO Active [facility] Sugar rocodone 500 mg-5 Q4-6H, PRN, [...] type Reported Ritalin Assertion Drug Active allergy [facility] Immunizations No Data Provided for This Section Results Order Name Results Value Reference Date Interpretation Comments Nely rce Range BACTERIAL Strep Negative Negative 02/26 [place] - SEROLOGY pneumoniae (02/25/17 9:02 PM) /2016 Hospital Ag BACTERIAL Source Strep Cerebral 02/26 [facility] [facility] - SEROLOGY Spinal /2016 Hospital Fluid BODY Tube Num CSF 1 02/26 [place] FLUIDS /2016 Hospital BODY Clarity CSF Clear Clear 02/26 [facility] [place] FLUIDS (02/25/17 9:02 PM) /2016 Hospi roly BODY Color CSF Colorless Colorless 02/26 [facility] [place] FLUIDS (02/25/17 9:02 PM) /2016 Hospi [facility]ly BODY Supernat CSF Colorless Colorless 02/26 [facility] FLUIDS (02/25/17 9:02 PM) /2016 Hospi roly BODY WBC CSF 2 0 - 53 02/26 [facility] [place] FLUIDS /2016 Hospital BODY RBC CSF 1 0 - 03 02/26 [facility] [place] FLUIDS /2016 Hospital BODY RBC CSF 1 0 - 03 02/26 [place] FLUIDS /2016 Hospital BODY WBC CSF 2 0 - 53 02/26 [place] FLUIDS /2016 Hospital BODY Supernat CSF Colorless Colorless 02/26 [facility] FLUIDS (02/25/17 9:02 PM) /2016 Hospi roly BODY Clarity CSF Clear Clear 02/26 [place] FLUIDS (02/25/17 9:02 PM) /2016 Hospi roly BODY Tube Num CSF 4 02/26 [place] FLUIDS /2016 Hospital BODY Color CSF Colorless Colorless 02/26 [place] FLUIDS (02/25/17 9:02 PM) /2016 Hospi roly BODY Glucose CSF 219 45 - 80 02/26 Result [place] FLUIDS Comment: Hospital Critical Result(s) called to Charlotte Hodge at _02/25/2017 21:45 bybz_. Read back OK.

NOTE: RESULTS autoverfied BODY Protein CSF 55 15 - 45 02/26 [place] FLUIDS /2016 Hospital FUNGAL - Crypto Ag Negative Negative 02/26 [place] SEROLOGY CSF (02/25/17 9:02 PM) /2016 Hosp ital IMMUNOLOGY VDRL Scr CSF Non Reactive Non 02/26 [place] (02/25/17 9:02 PM) Reactive /2016 Hosp ital [...] curve analysis. MOLECULAR Source HSV Cerebral 02/26 [place] DIAGNOSTIC Spinal /2016 Hospital Fluid VIRAL - [facility] (02/25/17 9:02 PM) [facility] CHEM PANEL A/G Ratio 0.9 0.7 - 1.6 02/26 [facility] CHEM PANEL B/C Ratio 23 6 - 25 02/26 [facility] CHEM PANEL Globulin 4.3 2.7 - 4.2 02/26 [facility] CHEM PANEL AGAP 11.3 10.0 - 02/26 [place] 20[facility]0 [facility] CHEM PANEL eGFR 101 02/26 [facility] eGFR is calculated using [...] PANEL BUN 16 7 - 22 02/26 [facility] CHEM PANEL ALANINE 17 0 - 65 02/26 [facility] RASE CHEM PANEL Total 8.2 6.4 - 8.4 02/26 [facility] CHEM PANEL Potassium 4.3 3.5 - 5.1 02/26 [facility]2016 [facility] CHEM PANEL Sodium Lvl 130 135 - 145 02/26 [facility] CHEM PANEL Creatinine 0.70 0.50 - 02/26 [place] L[facility] 1.40 /2016 [facility] CHEM PANEL Glucose Lvl 340 70 - 99 02/26 [facility] /2016 [facility] CHEM PANEL Calcium Lvl 8.9 8.5 - 10.5 02/26 [facility] /2017 [facility] CHEM PANEL Chloride Lvl 97 95 - 109 02/26 [facility] /2016 [facility] CHEM PANEL CO2 26 24 - 32 02/26 [place] /2017 [facility] CHEM PANEL Alk Phos 158 39 - 136 02/26 [place] /2017 [facility] CHEM PANEL ASPARTATE 16 0 - 37 02/26 [place] [facility] CHEM PANEL Albumin Lvl 3.9 3.5 - 5.0 02/26 [facility] /2016 [facility] CHEM PANEL Lactic Acid 1.8 0.5 - 2.2 02/26 [facility] /2016 [facility] HEMATOLOGY Platelet 305 133 - 450 02/26 [place] /2017 Hospital HEMATOLOGY MCV 82.2 80.0 - 02/26 [place] 98.0 /2016 Hospital HEMATOLOGY Hct 37.1 36.0 - 02/26 [place] 48.0 /2016 Hospital HEMATOLOGY MPV 7.4 7.4 - 10.4 02/26 [place] /2017 Hospital HEMATOLOGY RDW 14.1 11.5 - 02/26 [place] 14.5 /2016 Hospital HEMATOLOGY MCH 27.6 27.0 - 02/26 [place] 31.0 /2016 Hospital HEMATOLOGY MCHC 33.6 32.0 - 02/26 [place] 36.0 /2017 Hospital HEMATOLOGY RBC X 10x6 4.52 4.20 - 02/26 [place] 5.40 /2016 Hospital HEMATOLOGY Hgb 12.5 12.0 - 02/26 [place] 16.0 /2016 Hospital HEMATOLOGY WBC X 10x3 [...] Hospital HEMATOLOGY Segs 53.4 45.0 - 02/26 [place] 75.0 /2016 Hospital HEMATOLOGY Lymphocytes 39.1 20.0 [...] AND UA 0.2 0.1 - 1.0 02/26 [place] [facility] Urobilinogen /2016 Hospital URINE AND UA Nitrite Negative Negative 02/26 [facility] (02/25/17 7:42 PM) [facility] URINE AND UA Bili Negative Negative 02/26 [place] [facility] *NA* /2016 Hospital (02/25/17 7:42 PM) URINE AND UA Ketones Negative Negative 02/26 [facility] *NA* /2016 [facility] (02/25/17 7:42 PM) URINE AND UA Bacteria Many /HPF None Seen 02/26 [facility] /HPF /2016 Hospital URINE AND UA WBC 0-2 /HPF None Seen 02/26 [place] [facility] /HPF /2016 Hospital URINE AND UA RBC 0-2 /HPF 0 - 2 02/26 [place] [facility] /2016 Hospital URINE AND UA Leuk Est Negative Negative 02/26 [facility] (02/25/17 7:42 PM) /2016 Hospi [facility]ly URINE AND UA Sq Epi Few /LPF Few /LPF 02/26 [place] [facility] URINE AND UA Blood Negative Negative 02/26 [place] [facility] (02/25/17 7:42 PM) [facility] URINE AND UA Glucose >=1000 Negative 02/26 [place] [facility] mg/dL mg/dL /2016 Hospital URINE AND UA Protein Negative Negative 02/26 [facility] (02/25/17 7:42 PM) [facility] URINE AND UA pH 6.0 5.0 - 8.0 02/26 [place] [facility] /2016 Hospital URINE AND UA Spec Grav 1.010 <=1.030 02/26 [facility] URINE AND UA Color Yellow Yellow 02/26 [place] [facility] *NA* /2016 Hospital (02/25/17 7:42 PM) URINE AND UA Turbidity Slight Cloudy Clear 02/26 [place] [facility] (02/25/17 7:42 PM) Hospi [facility] VIRAL - Influ B Negative Negative 02/26 [place] [facility] (02/25/17 7:42 PM) [facility] VIRAL - Influ A Negative Negative 02/26 [place] [facility] (02/25/17 7:42 PM) [facility]osp [facility] CHEM [...] Alk Phos 165 39 - 136 01/26 [facility] CHEM PANEL B/C Ratio 12 6 - 25 01/26 [facility] CHEM PANEL Globulin 3.3 2.7 - 4.2 01/26 [facility] CHEM PANEL Albumin Lvl 2.4 3.5 - 5.0 01/26 [facility] CHEM PANEL Total 5.7 6.4 - 8.4 01/26 [facility] CHEM PANEL AGAP 9.7 10.0 - 01/26 [facility] 20.0 [facility] CHEM PANEL Glucose Lvl 261 70 - 99 01/26 [facility] CHEM PANEL Calcium Lvl 7.4 8.5 - 10.5 01/26 [facility] CHEM PANEL A/G Ratio 0.7 0.7 - 1.6 01/26 [facility] CHEM PANEL Creatinine 0.40 0.50 - 01/26 [facility] [place] [facility] 1[facility]40 [facility] CHEM PANEL BUN 5 7 - 22 01/26 [place] 2017 [facility] CHEM PANEL ASPARTATE 37 0 - 37 01/26 [place] [facility]ANS[facility]ASE [facility] CHEM PANEL ALANINE 44 0 - 65 01/26 [place] [facility] RASE CHEM PANEL Potassium 3.7 3.5 - 5.1 01/26 [facility] CHEM PANEL Sodium Lvl 137 135 - 145 01/26 [facility] CHEM PANEL CO2 25 24 - 32 10 [facility] CHEM PANEL Chloride Lvl 106 95 - 109 01/26 [facility] CARDIAC Troponin-I <0.02 0.00 - 01/25 [place] ENZYMES 0.40 [facility] PARATHYROI Ca Norm WB 0.99 1.05 - 01/25 [place] D PROFILE 1. [facility] PARATHYROI Ca Ion WB 1.01 1.05 - 01/25 [place] D PROFILE 1. Hospital CHEM PANEL Albumin Lvl 2.6 3.5 - 5.0 01/25 [facility] CHEM PANEL eGFR 112 01/25 Result [place] Comment: The Hospital eGFR is calculated using [...] CHEM PANEL Creatinine 0.50 0.50 - 01/25 [place] [facility] 1.40 [facility] CHEM PANEL Sodium Lvl 135 135 - 145 01/25 [facility] CHEM PANEL Potassium 3.6 3.5 - 5.1 01/25 [facility] CHEM PANEL CO2 25 24 - 32 01/25 [facility] CHEM PANEL Chloride Lvl 105 95 - 109 01/25 [facility] CHEM PANEL AGAP 8.6 10.0 - 01/25 [place] 20.0 [facility] CHEM PANEL Calcium Lvl 6.9 8.5 - 10.5 01/25 Result [facility] Comment: Hospital Critical Result(s) called to uyen martinez_ at _01/25/2017 15:47 by_bz. Read back OK. CHEM PANEL Glucose Lvl 263 70 - 99 01/25 [facility] CHEM PANEL BUN 8 7 - 22 01/25 [facility] CHEM PANEL Phosphorus 2.7 2.5 - 4.5 01/25 [facility] CHEM PANEL eGFR 106 01/25 Result [place] Comment: The Hospital eGFR is calculated using [...] CHEM PANEL Creatinine 0.60 0.50 - 01/25 [place] [facility] 1.40 [facility] CHEM PANEL BUN 9 7 - 22 01/25 [facility] CHEM PANEL Glucose Lvl 405 70 - 99 01/25 [facility] Comment: [facility] Critical Result(s) called to Dung Mullins at 01/25/2017 04:39 by CV. Read back OK. CHEM PANEL AGAP 12.5 10.0 - 01/25 [facility] [facility] 20.0 [facility] CHEM PANEL Potassium 3.5 3.5 - 5.1 01/25 [facility] CHEM PANEL Chloride Lvl 102 95 - 109 01/25 [facility] CHEM PANEL CO2 23 24 - 32 01/25 [facility] CHEM PANEL Calcium Lvl 7.1 8.5 - 10.5 01/25 [facility] CHEM PANEL Sodium Lvl 134 135 - 145 01/25 [facility] CHEM PANEL Magnesium 1.7 1.8 - 2.4 01/25 [facility] HEMATOLOGY MPV 7.4 7.4 - 10.4 01/25 [place] 2017 [facility] HEMATOLOGY RDW 13.6 11.5 - 01/25 [facility] 14.5 [facility] HEMATOLOGY Platelet 244 133 - 450 01/25 [place] 2017 Hospital HEMATOLOGY MCHC 33.4 32.0 - 01/25 [place] 36.0 [facility] HEMATOLOGY MCV 82.5 80.0 - 01/25 [place] 98.0 [facility] HEMATOLOGY MCH 27.6 27.0 - 01/25 [facility] 31.0 [facility] HEMATOLOGY Hgb 10.7 12.0 - 01/25 [facility] 16.0 [facility] HEMATOLOGY Hct 32.0 36.0 - 01/25 [facility] 48.0 [facility] HEMATOLOGY WBC X 10x3 5.5 3.7 - 10.4 01/25 [facility] HEMATOLOGY RBC X 10x6 3.88 4.20 - 01/25 [place] 5.40 [facility] HEMATOLOGY Monocytes 7.2 2.0 - [...] Hospital HEMATOLOGY Segs 55.0 45.0 - 01/25 [facility] 75.0 [facility] SPECIAL Hgb A1C >16.0 % <=5.6 % 01/25 [place] CHEMISTRY Hospital URINE AND UA Sq Epi Occasional Few /LPF 01/25 [facility] /LPF /2016 Hospital URINE AND UA WBC 11-20 /HPF None Seen 01/25 [facility] /HPF /2016 Hospital URINE AND UA Bacteria Moderate None Seen 01/25 [facility] /HPF /HPF /2016 Hospital URINE AND UA RBC 0-2 /HPF 0 - 2 01/25 [place] [facility] /2016 Hospital URINE AND UA Leuk Est Negative Negative 01/25 [facility] (01/24/17 11:54 PM) /2016 [facility] URINE AND UA Nitrite Positive Negative 01/25 [facility] *ABN* /2016 Hospital (01/24/17 11:54 PM) URINE AND UA Blood Negative Negative 01/25 [place] [facility] (01/24/17 11:54 PM) [facility] URINE AND UA Bili Negative Negative 01/25 [place] [facility] *NA* /2016 Hospital (01/24/17 11:54 PM) URINE AND UA Glucose >=1000 Negative 01/25 [place] STOOL mg/dL mg/dL /2016 Hospital URINE AND UA Protein Negative Negative 01/25 [facility] (01/24/17 11:54 PM) [facility] URINE AND UA 0.2 0.1 - 1.0 01/25 [place] STOOL Urobilinogen /2016 Hospital URINE AND UA Ketones Negative Negative 01/25 [facility] *NA* /2016 Hospital (01/24/17 11:54 PM) URINE AND UA pH 5.5 5.0 - 8.0 01/25 [place] [facility] /2016 Hospital URINE AND UA Spec Grav <=1.005 <=1.030 01/25 [facility] *NA* /2016 Hospital (01/24/17 11:54 PM) URINE AND UA Color Yellow Yellow 01/25 [place] [facility] *NA* /2016 Hospital (01/24/17 11:54 PM) URINE AND UA Turbidity Clear Clear 01/25 [facility] (01/24/17 11:54 PM) /2016 [facility]osp [facility] CARDIAC Total CK 62 12 - 191 01/25 [place] [facility] CARDIAC CK MB <1.0 0.5 - 3.6 01/25 [place] [facility] CARDIAC Troponin-I <0.02 0.00 - 01/25 [place] ENZYMES 0.40 Hospital CARDIAC CK-MB INDEX <1.6 0.0 - 2.5 01/25 [place] [facility] CHEM PANEL ASPARTATE 14 0 - 37 01/25 [place] TRANSAMINASE [facility] CHEM PANEL Bili Total 0.5 0.2 - 1.3 01/25 [facility] CHEM PANEL ALANINE 37 0 - 65 01/25 [place] [facility] RASE CHEM PANEL Alk Phos 222 39 - 136 01/25 [facility] CHEM PANEL A/G Ratio 0.7 0.7 - 1.6 01/25 [facility] CHEM PANEL Globulin 4.7 2.7 - 4.2 01/25 [facility] CHEM PANEL Albumin Lvl 3.5 3.5 - 5.0 01/25 [facility] CHEM PANEL B/C Ratio 16 6 - 25 01/25 [place] [facility] 2017 [facility] CHEM PANEL Total 8.2 6.4 - 8.4 01/25 [facility] CHEM PANEL Lipase Lvl 168 73 - 393 01/25 [facility] 2017 [facility] HEMATOLOGY Hgb 13.7 12.0 - 01/25 [place] 16.0 2017 Hospital HEMATOLOGY Hct 41.6 36.0 - 01/25 [facility] 48.0 [facility] HEMATOLOGY MCV 83.6 80.0 - 01/25 [place] 98.0 /2016 Hospital HEMATOLOGY MCH 27.5 27.0 - 01/25 [place] 31.0 /2017 Hospital HEMATOLOGY MCHC 32.9 32.0 - 01/25 [place] 36.0 /2016 Hospital HEMATOLOGY RDW 13.6 11.5 - 01/25 [facility] 14.5 [facility] HEMATOLOGY Platelet 314 133 - 450 01/25 [place] /2017 Hospital HEMATOLOGY MPV 8.1 7.4 - 10.4 01/25 [place] /2017 Hospital HEMATOLOGY WBC X 10x3 5.8 3.7 - 10.4 01/25 [facility] /2017 [facility] HEMATOLOGY RBC X 10x6 4.97 4.20 - 01/25 [place] 5.40 /2016 Hospital HEMATOLOGY Monocytes # 0.4 [...] Hospital HEMATOLOGY Segs 59.9 45.0 - 01/25 [place] 75.0 /2016 Hospital HEMATOLOGY Lymphocytes 31.7 20.0 - 01/25 [facility] 40.0 [facility] BEDSIDE Comment1 Notify 02/05 NA GLUCOSE KIRIT/ /2011 [facility] TESTING BEDSIDE Gluc POC 293 70 - 99 02/05 HI <sup>1</sup>I GLUCOSE [place] nterpretive [facility] TESTING Data: Upper Reportable Limit: 200 mg/dL. BEDSIDE Comment1 Notify 11/28 NA [place] [facility]CO[facility] Gluc POC 233 70 - 99 11/28 [place] <sup>1</sup>I [place] GLUCOSE [facility] /2011 [facility] TESTING Data: Upper Reportable Limit: 200 mg/dL. [...] values reflect the clinical guidelines
of the [place] [employer]. CHEMISTRY Chloride Lvl 98 95 [...] values reflect the clinical guidelines
of the [place] [employer]. CHEMISTRY Chloride Lvl 100 95 [...] - 99 10/24 CRIT <sup>3</sup>I [place] GLUCOSE [facility]terpretive [place] TESTING Data: Upper Reportable Limit: 200 mg/dL. BEDSIDE Gluc POC 273 65 - 110 05/23 HI <sup>1</sup>I [place] GLUCOSE [facility] [place] TESTING Data: Upper Reportable Limit: 200 mg/dL. BEDSIDE Comment1 Notify 05/23 NA [place] [facility]UCOSE [place]/ [place] TESTING BEDSIDE Gluc POC >400 65 - 110 05/23 CRIT <sup>2</sup>I [place] [facility] Data: Upper Reportable Limit: [...] on the clinical recommendatio ns of the [place] [employer]. CHEMISTRY BUN 12 7 - [...] on the clinical recommendatio ns of the [place] [employer]. CHEMISTRY Creatinine 0.8 0.5 - [...] on the clinical recommendatio ns of the [place] [employer]. CHEMISTRY Lipase Lvl 171 73 [...] [place] (03/25/2011 20:00:00) [place] UR[place] [facility] [place] Yeast Occasional /HPF None Seen 03/26 ABN [...] on the clinical recommendatio ns of the [place] [employer]. CHEMISTRY BUN 11.0 7 - [...] gar (02/10/2011 22:26:00) ?? [place] URINALYSIS UA [place] Yeast Occasional /HPF >None Seen 02/11 ABN [...] on the clinical recommendatio ns of the [place] [employer]. CHEMISTRY Sodium Lvl 131.0 135 [...] - 110 01/15 HI <sup>1</sup>I [place] GLUCOSE [facility] [place] TESTING Data: Upper Reportable Limit: 200 mg/dL. BEDSIDE Comment1 Notify 01/15 NA [place] GLUCOSE RN/MD [place] TESTING BEDSIDE Comment1 Notify 01/15 NA [place] GLUCOSE RN/MD /2010 [place] TESTING BEDSIDE Gluc POC 88.0 65 - 110 01/15 Normal <sup>2</sup>I [place] GLUCOSE [facility]pret[facility] [place] TESTING Data: Upper Reportable Limit: 200 mg/dL. BEDSIDE Comment1 Notify 01/15 NA [place] GLUCOSE RN/[facility] [place] TESTING BEDSIDE Gluc POC 70.0 65 - 110 01/15 Normal <sup>3</sup>I [place] GLUCOSE [facility] nterpret[facility] [place] TESTING Data: Upper Reportable Limit: [...] on the clinical recommendatio ns of the [place] [employer]. CHEMISTRY LDL 96.0 0 - [...] on the clinical recommendatio ns of the [place] [employer]. CHEMISTRY BUN 9.0 7 - [...] 27.0 - 01/14 Normal [place] 31.0 /2010 [facility] HEMATOLOGY Hgb 13.2 12.0 - 10 Normal [place] 16.0 /2010 [facility] HEMATOLOGY RBC 4.6 4.20 - 01/14 Normal [place] 5.40 /2010 [facility] HEMATOLOGY Hct 38.9 36.0 - 01/14 Normal [place] 48.0 /2010 [facility] HEMATOLOGY MCV 84.6 81.0 - 01/14 Normal [place] 99.0 /2010 [facility] HEMATOLOGY WBC 5.6 3.7 - 10.4 10 Normal [place] /2010 [facility] HEMATOLOGY PT 13.6 12.0 - 01/14 Normal [place] 14.7 /2010 [facility] HEMATOLOGY PTT 30.2 22.9 - 10 Normal <sup>10</sup> Seana r 35.8 [place] [place] Data: Heparin Therapeutic Range: 57 - 92 Seconds HEMATOLOGY INR 1.04 0.85 - 01/14 Normal <sup>8</sup>I [facility] r 1.17 [facility] Data: RECOMMENDED RANGES FOR PROTIME INR: 2.0-3.0 for most medical and surgical thromboemboli c states. 2.5-3.5 for artificial heart valves and recurrent embolism. INR SHOULD BE USED ONLY FOR PATIENTS ON STABLE ANTICOAGULANT THERAPY. HEMATOLOGY D-Dimer 1.5 01/14 NA <sup>9</sup>I [facility] r /2010 [facility] Data: In DIC, quantitative D-Dimer is generally [...] [facility] Clinical Indication: Headache, fever, neck pain Comparison: [...] No mass, hemorrhage, or subacute stroke. SL: [id number] Spine cervical wo CT cervical spine without contrast 02/25/2017 [facility] contrast CT Clinical Indication: - neck pain [...] [facility] contrast CT Clinical Indication: Acute l eft [...] series DX RIGHT FOOT 3 VIEW 12/26/2016 [facility] HISTORY: Toe injury. No comparisons. [...] Center Temperature Oral (F) 97.6 F 02/26/2017 [facility] Heart Rate 85 02/26/2017 [facility] Respitory Rate 16 02/26/2017 [facility] Systolic (mm Hg) 114 02/26/2017 [facility] Diastolic (mm Hg) 66 02/26/2017 [facility] Heart Rate 82 02/26/2017 [facility] Temperature Oral (F) 98.8 F 02/26/2017 [facility] Weight 49.545 02/26/2017 [facility] BMI Calculated 18.75 02/26/2017 [facility] Height 162.56 cm 02/26/2017 [facility] Systolic (mm Hg) 109 02/26/2017 [facility] Diastolic (mm Hg) 65 02/26/2017 [facility] Heart Rate 84 02/26/2017 [facility] Respitory Rate 14 02/26/2017 [facility] Respitory Rate 18 02/25/2017 [facility] Systolic (mm Hg) 114 02/25/2017 [facility] Diastolic (mm Hg) 63 02/25/2017 [facility] Temperature Oral (F) 98.2 F 02/25/2017 [facility] Heart Rate 78 02/25/2017 [facility] BMI Calculated 18.75 02/25/2017 [facility] Weight 49.545 02/25/2017 [facility] Height 162.56 cm 02/25/2017 [facility] Heart Rate 77 02/25/2017 [facility] Respitory Rate 18 02/25/2017 [facility] Temperature Oral (F) 97.8 F 02/25/2017 [facility] Systolic (mm Hg) 147 02/25/2017 [facility] Diastolic (mm Hg) 80 02/25/2017 [facility] Weight 49.659 02/25/2017 [facility] Height 167.64 cm 02/25/2017 [facility] Temperature Oral (F) 97.8 F 02/25/2017 [facility] BMI Calculated 17.67 02/25/2017 [facility] Systolic (mm Hg) 145 02/25/2017 [facility] Diastolic (mm Hg) 80 02/25/2017 [facility] Respitory Rate 18 02/25/2017 [facility] Heart Rate 77 02/25/2017 [facility] Temperature Oral (F) 98.5 F 01/26/2017 [facility] Heart Rate 87 01/26/2017 [facility] Respitory Rate 20 01/26/2017 [facility] Systolic (mm Hg) 116 01/26/2017 [facility] Diastolic (mm Hg) 69 01/26/2017 [facility] Heart Rate 79 01/26/2017 [facility] Respitory Rate 18 01/26/2017 [facility] Temperature Oral (F) 98.4 F 01/26/2017 [facility] Systolic (mm Hg) 129 01/26/2017 [facility] Diastolic (mm Hg) 80 01/26/2017 [facility] Temperature Oral (F) 98.1 F 01/26/2017 [facility] Heart Rate 78 01/26/2017 [facility] Systolic (mm Hg) 120 01/26/2017 [facility] Diastolic (mm Hg) 69 01/26/2017 [facility] Respitory Rate 20 01/26/2017 [facility] Height 157.48 cm 01/25/2017 [facility] Weight 51.449 01/25/2017 [facility] BMI Calculated 20.75 01/25/2017 [facility] Weight 52.273 01/25/2017 [facility] BMI Calculated 19.78 01/25/2017 [facility] Height 162.56 cm 01/25/2017 [facility] Systolic (mm Hg) 121 12/27/2016 [facility] Diastolic (mm Hg) 81 12/27/2016 [facility] Respitory Rate 16 12/27/2016 [facility] Heart Rate 82 12/27/2016 [facility] Temperature Oral (F) 98.3 F 12/27/2016 [facility] Temperature Oral (F) 98.4 F 12/27/2016 [facility] Respitory Rate 18 12/27/2016 [facility] Systolic (mm Hg) 126 12/27/2016 [facility] Diastolic (mm Hg) 81 12/27/2016 [facility] BMI Calculated 18.92 12/27/2016 [facility] Weight 50 12/27/2016 [facility] Heart Rate 89 12/27/2016 [facility] Height 162.56 cm 12/27/2016 [facility] Height 162.56 cm 02/06/2012 [place] Weight 47.273 02/06/2012 [facility] Height 162.56 cm 11/29/2011 [place] Weight 50.000 11/29/2011 [place] Height 162.56 cm 10/25/2011 [place] Weight 54.545 10/25/2011 [place] Height 162.56 cm 05/23/2011 [place] Weight 50.000 05/23/2011 [place] Temperature Oral (F) 98.5 F 05/08/2011 [place] Diastolic (mm Hg) 57 05/08/2011 [place] [facility] Systolic (mm Hg) 107 05/08/2011 [place] Heart Rate 57 05/08/2011 [place] Respitory Rate 16 05/08/2011 [facility] [place] Weight 50.000 05/08/2011 [facility] [place] Height 162.56 cm 05/08/2011 [place] Temperature Oral (F) 98.6 F 05/08/2011 [facility] [place] Diastolic (mm Hg) 70 05/08/2011 [facility] [place] [facility] Systolic (mm Hg) 127 05/08/2011 [facility] [place] Heart Rate 83 05/08/2011 [facility] [place] Respitory Rate 16 05/08/2011 [facility] [place] Respitory Rate 18 04/20/2011 [facility] [place] Heart Rate 79 04/20/2011 [facility] [place] Diastolic (mm Hg) 75 04/20/2011 [facility] [place] Systolic (mm Hg) 119 04/20/2011 [facility] [place] Diastolic (mm Hg) 97 04/20/2011 [facility] [place] [facility] Heart Rate 80 04/20/2011 [facility] [place] Systolic (mm Hg) 148 04/20/2011 [facility] [place] Respitory Rate 20 04/20/2011 [facility] [place] Weight 50.000 04/20/2011 [facility] [place] Systolic (mm Hg) 122 04/20/2011 [place] Temperature Oral (F) 98.0 F 04/20/2011 [place] Respitory Rate 18 04/20/2011 [place] Heart Rate 79 04/20/2011 [facility] [place] Diastolic (mm Hg) 75 04/20/2011 [place] [facility] Temperature Oral (F) 98.0 F 03/26/2011 [facility] [place] Respitory Rate 18 03/26/2011 [place] Heart Rate 69 03/26/2011 [facility] [place] Systolic (mm Hg) 112 03/26/2011 [facility] [place] Diastolic (mm Hg) 60 03/26/2011 [facility] [place] Height 160.02 cm 03/26/2011 [facility] [place] Weight 53.636 03/26/2011 [facility] [place] Temperature Oral (F) 99.0 F 03/26/2011 [place] Diastolic (mm Hg) 67 03/26/2011 [facility] [place] Systolic (mm Hg) 115 03/26/2011 [facility] [place] Respitory Rate 16 03/26/2011 [facility] [place] Heart Rate 75 03/26/2011 [facility] [place] Diastolic (mm Hg) 51.0 02/11/2011 [facility] [place] [facility] Respitory Rate 14.0 02/11/2011 [facility] [place] Systolic (mm Hg) 100.0 02/11/2011 [facility] [place] Heart Rate 59.0 02/11/2011 [place] Temperature Oral (F) 98.1 F 02/11/2011 [facility] [place] Diastolic (mm Hg) 54.0 02/11/2011 [place] [facility] Systolic (mm Hg) 102.0 02/11/2011 [place] Temperature Oral (F) 97.5 F 02/11/2011 [place] Heart Rate 61.0 02/11/2011 [facility] [place] Respitory Rate 16.0 02/11/2011 [place] Height 162.56 cm 02/11/2011 [facility] [place] Weight 56.96 02/11/2011 [facility] [place] Respitory Rate 18.0 02/11/2011 [place] Temperature Oral (F) 98.0 F 02/11/2011 [place] Heart Rate 61.0 02/11/2011 [place] Systolic (mm Hg) 111.0 02/11/2011 [place] Diastolic (mm Hg) 61.0 02/11/2011 [place] Weight 52.273 02/11/2011 [place] Height 162.56 cm 02/11/2011 [place] Diastolic (mm Hg) 59.0 01/15/2011 [place] [facility] Systolic (mm Hg) 105.0 01/15/2011 [place] Temperature Oral (F) 97.0 F 01/15/2011 [place] Heart Rate 59.0 01/15/2011 [place] Respitory Rate 18.0 01/15/2011 [place] Temperature Oral (F) 97.2 F 01/15/2011 [place] Respitory Rate 18.0 01/15/2011 [place] Heart Rate 71.0 01/15/2011 [place] Diastolic (mm Hg) 59.0 01/15/2011 [place] [facility] Systolic (mm Hg) 106.0 01/15/2011 [place] Respitory Rate 18.0 01/15/2011 [place] Systolic (mm Hg) 110.0 01/15/2011 [place] Heart Rate 62.0 01/15/2011 [place] Temperature Oral (F) 97.9 F 01/15/2011 [place] Diastolic (mm Hg) 58.0 01/15/2011 [place] [facility] Height 162.56 cm 01/15/2011 [place] Weight 56.818 01/15/2011 [place] Height 162.56 cm 01/14/2011 [place] Weight 50.0 01/14/2011 [place] Systolic (mm Hg) 115.0 12/22/2010 [place] Diastolic (mm Hg) 78.0 12/22/2010 [place] [facility] Peripheral Pulse Rate 74.0 12/22/2010 [place] Respitory Rate 16.0 12/22/2010 [place] Height 162.56 cm 12/22/2010 [place] Weight 52.273 12/22/2010 [place] Temperature Oral (F) 98.2 F 12/22/2010 [place] Respitory Rate 16.0 12/22/2010 [place] Peripheral Pulse Rate 75.0 12/22/2010 [place] Diastolic (mm Hg) 77.0 12/22/2010 [place] [facility] Systolic (mm Hg) 125.0 12/22/2010 [place] En[place] Location Location Encounter Encounter Reason Attending ADM [place] Stat us Source Details Type Number For Provider Date Date Visit Emergency [id number] ABD TRA PSYK 08/15 08/16 Acti ve [facility] 8 PAIN, /2009 [place] Emergency [id number] UPPER BE 09/20 09/[address] [facility] ABDOMINA WHITE GREEN /2009 [place] Emergency [id number] EAR PAIN TRA PSYK 10/09 10[facility] 0 /2009 [place] O[place] [id number] CHEST TAJUDDIN 10/31 11/02 Active [place] 1 PAIN CONSUELO /2009 [place] Emergency [id number] ABDOMINA TROY 01/03 01/03 Active [place] 2 L PAIN ROW[place] /2009 [place] OU [id number] ABDOMINA CHRISTOPHER 01/05 01/07 Activ e [facility] 4 L PAIN GONZALEZ /2009 [place] Emergency [id number] [place] TRA PSYK 07/21 07/21 Acti ve [facility] 6 HIGH,VAG /2010 [place] BLEEDING Emergency [id number] FACIAL TROY 10/07 10/[address] [facility] 7 AND NECK ROW[place] /2010 [place] PAIN [place] Inpatient [id number] FACIAL TARAH 10/09 10/13 Active [facility] 8 NECK BRIDGES /2010 [place] CELLULIT [place] IS Emergency [id number] MOISE MONTEMAYOR 12/22 12/22 Disc harg [facility] ed [place] OU [id number] CHEST DEE CROCKETT 01/14 01/15 Active [facility] 0 PAIN /2010 [place] OU [id number] CHEST DEE CROCKETT 02/11 02/11 Active [place] 1 PAIN, /2010 [place] DIZZINES [place] S,HYPERG LYCEMIA, UTI Emergency [id number] LOWER LIZY 03/25 03/26 Active [facility] 2 ABD WISEMAN /2010 [place] HIGH [place] Emergency [id number] RIGHT LIZY 04/19 04/20 Active [facility] 3 ABDOMINA WISEMAN /2011 [place], [place] BLOOD IN URINE Emergency [id number] BLEEDING TROY 05/07 05/07 Active [facility] 4 / RT ROWAN /2011 [place] PAIN Emergency [id number] ABDOMINA VIMI SHOEMAKER 05/22 05/23 Ac tive [facility] 5 L PAIN /2011 [place] BLOOD [place] Emergency [id number] LEFT VIMI SHOEMAKER 10/23 10/24 Acti ve [facility] 6 LOWER /2011 [place] L PAIN Emergency [id number] BLOOD VIMI SHOEMAKER 11/27 11/27 Acti ve [facility] 7 SUGAR /2011 [place] PROBLEM [place] YEIMY [id number] GUIDO 02/05 02/05 Discharg [facility] 9 BAVISHI /2011 ed [facility] e [facility] Outpatient [id number] ABDOMINA GUIDO 02/16 Active [facility] 8 L PAIN [place] [facility] Emergency [id number] Moise Montemayor 12/27 12/27 [facility] [id number] Greg 01/25 01/26 [place] 1 [facility] [id number] Rudolph 02/25 02/25 J[place] 2 Pilra Escobar [facility] [id number] Rudolph 02/26 02/26 [place] 3 [place] [facility] Outpatient [id number] ABD PAIN MESHA Jose Alfredo e [facility] 3 [facility] Procedures Procedure Code Date Perfomer Comments Source Appendectomy [id number] [facility] Cholecystectomy [id number] [facility] Partial hysterectomy [id number] [facility] Assessment and Plan Assessment and Plan Date Source Extracted from:Title: Progress Note * 01/26/2017 [facility] Author: Marie June MD Date: 01/25/17 Impression and Plan The patient was seen and examined by me with the resident/RAIL ENGINEER/PA and I agree with the History/Exam [...]
--- OUTSIDE RECORDS SUMMARY | 2020-05-10 11:10 | XMS REPORT | Continuity of Care Document ---
:1965 Author Organization [facility] t Address [address] [place] [address] Care Team Providers Name Role Phone Sharpless [...] HURT 00:00: Jona TOES 00 Active 12/27/[address] [facility] [place] ABDOMINAL Diagnosis Active 2011-042012-02-17 Memoria PAIN 0-26 10:42:00 l 00:00: [place] ABDOMINAL 00 PAIN Active 02/07/2012 [facility] EGD Diagnosis Active 2011-042012-02-06 Mem oria 0-24 10:10:00 l EGD 06:00: [place] 00 Active 02/05/2012 [facility] BLOOD Diagnosis Active 2011-12-11 Mem oria SUGAR 8-16 11:15:00 l PROBLEM BLOOD 15:00: [place] SUGAR 00 PROBLEM Active 11/28/2011 [place] LEFT LOWER Diagnosis Active 2011-12-11 Memoria ABDOMINAL 7-12 10:48:00 l PAIN LEFT 08:00: [place] LOWER 00 ABDOMINAL PAIN Active 10/24/2011 [place] ABDOMINAL Diagnosis Active 2011-12-11 Memoria PAIN HIGH 2-08 11:09:00 l BLOOD 22:00: [place] SUGAR ABDOMINAL 00 PAIN HIGH BLOOD SUGAR Active 05/22/2011 [facility] BLEEDING/ Diagnosis Active 2011-12-11 Memoria RT SIDE 1-24 11:06:00 l PAIN 08:00: [place] BLEEDING/ 00 RT SIDE PAIN Active 05/07/2011 [place] RIGHTABDOM Diagnosis Active 2011-04-19 Memoria INAL PAIN 1-06 20:37:00 l . AND 00:00: [place] BLOOD IN RIGHTABDOM 00 URINE INAL PAIN . AND BLOOD IN URINE Active 04/19/2011 [facility] RIGHT Diagnosis Active 2011-12-20 Mem oria ABDOMINAL 1-06 13:03:00 l PAIN, RIGHT 00:00: [place]ona BLOOD IN ABDOMINAL 00 URINE PAIN, BLOOD IN URINE Active 04/19/2011 [place] LOWER ABD Diagnosis Active 2010-042011-12-11 Memoria PAIN/ HIGH 2-12 11:02:00 l SUGAR LOWER 00:00: [place] ABD PAIN/ 00 HIGH SUGAR Active 03/25/2011 [place] CHEST PAIN Diagnosis Active 2010-042011-02-11 Memoria AND 0-30 01:56:00 l TIGHTNESS CHEST 18:00: Jorge Luis n PAIN AND 00 TIGHTNESS Active 02/10/2011 [place] CHEST Diagnosis Active 2010-042011-02-15 Mem oria PAIN, 0-30 21:58:00 l DIZZINESS, CHEST 18:00: Eugenia nn HYPERGLYCE PAIN, 00 EB, UTI DIZZINESS, HYPERGLYCE EB, UTI Active 02/10/2011 [place] CHEST PAIN Diagnosis Active 2010-042011-01-15 Memoria 0-03 16:36:00 l CHEST 15:00: [place]ona PAIN 00 Active 01/14/2011 [place] RIGHT KNEE Diagnosis Active 2010-12-22 Memoria 1ST 3 TOES 9-10 13:04:00 l NUMB RIGHT 11:00: [place] KNEE 1ST 3 00 TOES NUMB Active 12/22/2010 [place] FACIAL Diagnosis Active 2010-12-22 Mem oria NECK 10-08 13:04:00 l CELLULITIS FACIAL 00:00: Herm aav NECK 00 CELLULITIS Active 10/08/2010 [place] FACIAL AND Diagnosis Active 2010-12-22 Memoria NECK PAIN 10-07 13:04:00 l FACIAL 06:00: [place] AND NECK 00 PAIN Active 10/07/2010 [facility] SUGAR Diagnosis Active 2010-12-22 Mem oria HIGH,VAGIN 07-21 13:04:00 l AL SUGAR 00:00: [place]ona BLEEDING HIGH,VAGIN 00 AL BLEEDING Active 07/21/2010 [facility] ABD PAIN Diagnosis Active 2010-12-22 M emoria 01-05 13:04:00 l ABD PAIN 00:00: Jorge Luis n 00 Active 01/05/2010 [facility] EAR PAIN Diagnosis Active 2010-12-22 M emoria 10-09 13:04:00 l EAR PAIN 19:00: Jorge Luis n 00 Active 10/09/2009 [facility] UPPER Diagnosis Active 2010-12-22 Mem oria ABDOMINAL 09-20 13:04:00 l PAIN UPPER 14:00: [place] ABDOMINAL 00 PAIN Active 09/20/2009 [facility] ABD PAIN, Diagnosis Active 2010-12-22 Memoria HIGH SUGAR - 13:04:00 l ABD 00:00: [place] PAIN, HIGH 00 SUGAR Active 08/15/2009 [place] Abdominal Problem Active 2012-02-19 Me moria pain 09:23:16 l [place] Abdominal pain Active Problem 02/19/2012 [facility] [place] Cellulitis Problem Active 2012-02-19 M emoria 09:23:16 l [place] Cellulitis Active Problem 02/19/2012 [facility] [place] Chest pain Problem Active 2012-02-19 M emoria 09:23:16 l Chest [place] pain Active Problem 02/19/2012 [facility] [place] Hyperglyce Problem Active 2012-02-19 M emoria eb 09:23:16 l [place] Hyperglyce eb Active Problem 02/19/2012 [facility] [place] UTI - Problem Active 2012-02-19 Memor ia Urinary 09:23:16 l tract UTI - [place] infection Urinary tract infection Active Problem 02/19/2012 [facility] [place] Diabetes Problem Active 2017-03-01 Mem oria mellitus 04:36:24 l (disorder) Diabetes He rmann mellitus (disorder) Active Problem 03/01/2017 [facility] [place] Restless Problem Active 2017-03-01 Mem oria legs 04:36:24 l (disorder) Restless He rmann legs (disorder) Active Problem 03/01/2017 [facility] [place] Abdominal Problem Active 2017-03-01 Me moria pain 04:36:24 l (finding) [place] Abdominal pain (finding) Active Problem 03/01/2017 [facility] [place] Chest pain Problem Active 2017-03-01 M emoria (finding) 04:36:24 l Chest Jona pain (finding) Active Problem 03/01/2017 [facility] [...] Active 2010-12-22 Memoria NOS 13:04:00 l CHEST [place] PAIN NOS Active [place] CELLULITIS Diagnosis Active 2010-12-22 Memoria NOS 13:04:00 l [place] CELLULITIS NOS Active [place] Hyperglyce Problem 2016-2017-03-01 2017-03-01 Memoria eb, -14 04:36:24 04:36:24 l unspecifie 06:00: Jorge Luis n d Hyperglyce 00 eb, unspecifie d 02/25/2017 03/01/2017 [facility] [place] Fever, Problem 2016-2017-03-01 2017-03-01 M emoria unspecifie -14 04:36:24 04:36:24 l d Fever, 06:00: [place] unspecifie 00 d 02/25/2017 03/01/2017 [facility] [place] Radiculopa Problem 2016-2017-02-28 2017-02-28 Memoria thy, 1-14 05:26:25 05:26:25 l cervical 06:00: Jona region Radiculopa 00 thy, cervical region 02/25/2017 02/28/2017 [facility] [place] Displaced Problem 2017-2016-12-30 2016-12-30 Memoria unspecifie 9-15 [...] Date Quantity Comments Source Sex Assigned At [facility] Tobacco use and 2017-10-06 2017-10-06 Never used [facility] kes - exposure 00:00:00 00:00:00 [facility] Alcohol intake 2017-10-06 2017-10-[address] [facility] - 00:00:00 00:00:00 non-drinker of Medical Ce nter alcohol (finding) Social History 2017-02-03 2017-02-03 [facility] hermila 15:24:44 15:24:44 Smoking Status Start Date Stop Date Source Never smoker [facility] Medications Ordered Filled Start Stop Current Ordering Indication Dosage Frequency Signature Comments Components Source Medication Medication Date Date Medication? Clinician (SIG) Name Name rOPINIRole 2018 Yes 1mg [id number] Take [address] [facility] (REQUIP) 1 3-26 [id number] by mouth [facility] tablet 12:00: 3D (three) Medic al 28 times Center daily. pregabalin Yes 50mg Q.[id number] Take [address] [facility] (LYRICA) 50 3-26 [id number] by mouth 3 [facility] capsule 12:00: 3D (three) Medi steven 28 times Center daily. GI cocktail 2016-04 No Notes: Nirmal feliz 1-15 G.I. l 05:06: Cocktail = [place] 00 antacid with simethicon e 22.5 mL [...] Notes: Memoria 1-15 (Same l 02:34: as:MORPhin [place] 00 e Sulfate) Lidocaine 2016-04 Yes Notes: Memori a Hydrochlori 1-15 Preservati l de 10 MG/ML 02:33: ve free. He rmann Injectable 00 (Same as: Solution Xylocaine MPF) Insulin 2016-04 No 60 Memoria regular 1-15 units) l 02:23: WASTE: F/P [place] 00 - Black; E - Municipal Trash Bin Stable for 28 days at room temperatur e Expires in days from ____Date Sodium 2016-04 No 2,000 mL, Memori a Chloride 1-15 1000 l 0.9% 02:22: ml/hr, J[place] (Bolus) IV 00 Infuse Over: 2 hr, Route: IV, 2,000, Drug form: INJ, ONCE, Priority: STAT, Dosing Weight 49.545 kg, Start date: 02/25/17 20:22:00 PARTS REMOVER, Stop date: 02/25/17 20:22:00 PARTS REMOVER ibuprofen 2016-04 Yes 800 mg = 1 Me moria 800 mg oral 1-14 tab, PO, l tablet 07:20: Q8H, PRN [place] 00 Pain, Take with food, X 5 [...] Memoria 14 (Same as: l 05:48: Valium) [place] 00 Ketorolac 2016-04 No 4 days Memor ia -14 l 05:48: MEDICATION WASTE Product Size: 30 mg Product Wasted: ___ mg Ciprofloxac 2016-04 Yes 500 mg = 1 Memoria in 500 MG 0-15 tab, PO, l Oral Tablet 14:57: Q12H, for H ermann [Cipro] 00 UTI, X 3 day, # 6 tab, 0 Refill(s), Pharmacy: [id number] Humalog 100 2016-04 Yes 4 unit, Mem oria units/mL 0-15 SUB-Q, l 14:48: TID-Before 00 Meals, hold insulin injection if your blood sugar is less than 140 mg/dL., # 10 mL, 0 Refill(s), Pharmacy: [email or web address][id number] pantoprazol 2016-04 Yes 40 mg = 1 M emoria e 40 MG 0-15 tab, PO, l Enteric 14:48: Daily, # Jorge Luis n Coated 00 30 tab, 0 Tablet Refill(s), [Protonix] Pharmacy: [email or web address] #[id number] Calcium 2016-04 Yes 500 mg = 1 Nirmal feliz Carbonate 0-15 tab, PO, l 500 MG 14:48: TID, # 6 [place] Chewable 00 tab, 0 Tablet Refill(s), Pharmacy: [email or web address] #[id number] Insulin 2016-04 Yes 15 unit, Memori a Glargine 0-15 SUB-Q, l 100 UNT/ML 14:48: Daily, # Her pugh Injectable 00 10 mL, 0 Solution Refill(s), [Lantus] Pharmacy: [email or web address] #[id number] Calcium 2016-04 No Notes: Memoria Gluconate 0-15 [...] Memoria 0-15 (Same as: l 02:00: Requip) [place] 00 Lyrica 2016-04 No Notes: Memoria 0-15 (Same as: l 02:00: Lyrica) Jona 00 Calcium 2016-04 No Notes: Memoria Carbonate 0-14 (Same As: l 22:40: Tums) [place] 00 Calcium Carbonate 500 mg = 200 mg elemental calcium Dose = mg calcium carbonate ( mg elemental calcium) Protonix 2016-04 No Notes: Memoria 0-14 Tablet l 22:00: should not [place] 00 be chewed or crushed. (Same as: Protonix) Magnesium 2016-04 No Notes: Memori a Oxide 0-14 (Same as: l 22:00: Mag-Ox J[place] 00 400) Magnesium oxide [id number] g elemental magnesium Dose=____m g magnesium oxide [...] Lispro 0-14 units) l 09:50: WASTE: F/P [place] 00 - Black; E - Municipal Trash [...] 0-14 Route: IM, l 06:35: Drug form: [place] 00 PDR/INJ, PRN, Dosing Weight 51.449, kg, PRN Blood Glucose Results, Start date: 01/25/17 1:35:00 CDT, Duration: 30 day, Stop date: 02/24/17 0:34:00 PARTS REMOVER Insulin 2016-04 No 60 Memoria Lispro 0-14 units) l 06:35: WASTE: F/P [place] 00 - Black; E - Municipal Trash Bin Stable for 28 days at room temperatur e. Expires in days from ____Date Dextrose 2016-04 No 25 gm, 50 Nirmal feliz 50% Syringe 0-14 mL, Route: l 06:35: IVP, Drug [place] 00 Form: INJ, Dosing Weight 51.449, kg, PRN, PRN Blood Glucose Results, Start date: 01/25/17 1:35:00 CDT, Duration: 30 day, Stop date: 02/24/17 0:34:00 PARTS REMOVER Acetaminoph 2016-04 No Notes: Do M emoria en 0-14 not exceed l 06:32: 4 gm/day. Jona (Same as: Tylenol) Acetaminoph 2016-04 No Notes: Nirmal feliz en 325 MG / 0-14 (Same as: l Hydrocodone 06:32: [place] Eugenia nn Bitartrate 00 325/5) Do 5 [...] 01/25/17 1:32:00 CDT, Stop date: 02/24/17 1:31:00 PARTS REMOVER Saline 2016-04 No Notes: Memoria Flush 0.9% [...] Memoria 0-14 Route: l 03:07: IVP, Drug [place] 00 form: INJ, ONCE, Dosing Weight 52.273, [...] / 9-15 (Same as: l Hydrocodone 04:47: [place] Eugenia nn Bitartrate 00 325/5) Do 5 MG Oral not exceed Tablet 4gm/day of [[place] acetaminop 5/325] hen. insulin Yes QD Inject [...] Nirmal feliz 11-28 on Allowed l 03:29: [place] Insulin No Vimi 7 unit, Memoria regular [...] 11-28 Roche Rate: l 0.9% 02:51: 1,000 [place] (Bolus) IV 00 ml/hr, 1,000 mL Infuse over: 1 hr, Route: IVPB, kg, Total Volume: 1,000, Bolus Dose, Priority: STAT, Start date: 11/28/11 21:51:00, Duration: 1 doses or times, Stop date: 11/28/11 22:50:00 Saline No Vimi 5 ml, Memoria Flush 0.9% 11-28 Roche Route: l 02:51: IVP, Drug [place] 00 Form: INJ, kg, PRN, PRN Line Flush, Start date: 11/28/11 21:51:00, Duration: 30 day, Stop date: 12/28/11 21:50:00 [place] 5/325 2011-0 Yes Juan 1-2 tab, M [...] 2-09 Roche Route: l 07:52: IVP, ONCE, [place] 00 Start date: 05/23/11 1:52:00, Stop date: 05/23/11 1:52:00 Insulin 2011-0 No Vimi 5 unit, Memoria regular 2-09 Roche 0.05 mL, l 07:10: Route: [place]ona IVP, Drug form: SOLN, ONCE, Priority: STAT, Start date: 05/23/11 1:10:00, Stop date: 05/23/11 1:10:00 Visipaque 2011-0 Yes Vimi 32,000 mg, Me moria 2-09 Roche 100 mL, l 05:47: Route: IV, [place] Drug form: INJ, ONCE, Start date: 05/22/11 23:47:00, Stop date: 05/22/11 23:47:00 Insulin 2011-0 No Vimi 5 unit, Memoria regular 2-09 Roche 0.05 mL, l 05:36: Route: [place] 00 SUB-Q, Drug form: SOLN, ONCE, Priority: [...] ing Nausea and Vomiting, Substituti on Allowed [place] Yes Juan 1 tab, PO, Memor ia [...] Keith Rate: l 0.9% 03:30: Yeaton 1,000 [place] (Bolus) IV 00 ml/hr, 1,000 mL Infuse [...] gm, PO, M emoria oral powder 2-13 Pryor Phelps Daily, 255 l for 05:57: gm, [place] reconstitut 18 Substituti ion on Allowed, PDR/REC Phenergan 2010-04 Yes Mila 25 mg, 1 M emoria 25 mg oral 2-13 Pryor Phelps tab, PO, l tablet 05:57: Q6H, PRN, Jorge Luis n 09 15 tab, Nausea, Substituti on Allowed Vicodin 2010-04 Yes Mila 1 tab, PO, M emoria 5/500 oral 2-13 Zay Phelps Q4-6H, l tablet 05:57: PRN, 24 [place] 05 tab, for Pain, Substituti on Allowed, [...] Mila 10 unit, Mem oria regular 2-13 Pryor Phelps 0.1 mL, l 03:16: Route: [place] 00 IVP, Drug form: SOLN, ONCE, Priority: STAT, Start date: 03/25/11 21:16:00, Stop date: 03/25/11 21:16:00 Omnipaque 2010-04 Yes Mila 30,000 mg, Memoria 300 2-13 Pryor Phelps 100 mL, l 03:15: Route: IV, Jona 00 Drug form: SOLN, ONCE, Start date: 03/25/11 21:15:00, Stop date: 03/25/11 21:15:00 Saline 2010-04 No Mila 5 ml, Memoria Flush 0.9% 2-13 Pryor Phelps Route: l 02:19: IVP, Drug Form: INJ, PRN, PRN Line Flush, Start date: 03/25/11 20:19:00, Duration: 30 day, Stop date: 04/24/11 20:18:00 ondansetron 2010-04 No Mila 4 mg, 2 Memoria 2-13 Pryor Phelps mL, Route: l 02:19: IVP, Drug form: INJ, ONCE, Priority: STAT, Start date: 03/25/11 20:19:00, Stop date: 03/25/11 20:19:00 morphine 2010-04 No Mila 4 mg, 0.8 M emoria Sulfate 2-13 Zay Phelps mL, Route: l 02:19: IVP, Drug [place] 00 form: INJ, ONCE, Priority: STAT, Start date: 03/25/11 20:19:00, Stop date: 03/25/11 20:19:00 nitroglycer 2010-04 No 0.4 mg, 1 M emoria in 0.4 mg 0-31 tab, SL, l sublingual 17:47: Q5Min, Eugenia nn tablet 03 PRN, as needed for chest pain, Substituti on Allowed aspirin 81 2010-04 Yes 1 tab, PO, M emoria mg tablet, 0-31 Daily, l chewable 17:29: tab, [place] 44 Substituti on Allowed, CHEWTAB Cipro 2010-04 No Dk 250 mg, 1 Memori a 0-31 Ari tab, l 16:00: [place] Route: PO, Herm ava 00 Drug form: TAB, [id number], Start date: 02/11/11 11:00:00, Duration: 30 day, Stop date: 03/12/11 23:00:00 magnesium 2010-04 No [place] 400 mg, 1 M emoria oxide 0-31 Minhvu Victoriano tab, l 14:00: [place] Route: PO, [place] 00 Drug form: TAB, Daily, Start date: 02/11/11 9:00:00, Duration: 30 day, Stop date: 03/12/11 9:00:00 Lantus 2010-04 No Dk 70 unit, Memori a 0-31 Ari Route: l 14:00: Jonathan SUB-Q, [place] Drug form: SOLN, Daily, Start date: 02/11/11 9:00:00, Duration: 30 day, Stop date: 03/12/11 9:00:00 Levemir 2010-04 No Dk 70 unit, Memor ia FlexPen 0-31 Ari 0.7 mL, l 14:00: Jonathan Route: [place] 00 SUB-Q, Drug form: INJ, Daily, Start [...] PO, Herm ava 00 Drug form: TAB, [id number], Start date: 02/11/11 3:00:00, Duration: 30 day, [...] Shauna mL, Route: l 05:37: IVP, Drug [place] 00 form: INJ, ONCE, Priority: STAT, Start date: 02/11/11 0:37:00, Stop date: 02/11/11 0:37:00 Visipaque 2010-04 No Penelope S 48,000 mg, Memoria 0-31 Shauna 150 mL, l 04:55: Route: IV, [place]ona Drug form: INJ, ONCE, Start date: 02/10/11 23:55:00, Stop date: 02/10/11 23:55:00 Zofran 2010-04 No Penelope S 4 mg, 2 Memori a 0-31 Shauna mL, Route: l 04:28: IVP, Drug [place] form: INJ, ONCE, Start date: 02/10/11 23:28:00, Stop date: 02/10/11 23:28:00 Cipro 2010-04 No Penelope S 400 mg, Memoria 0-31 Shauna Route: l 04:08: IVPB, [place] 00 ONCE, Priority: STAT, Start date: 02/10/11 [...] Shauna Route: l SF 02:55: IVP, Drug [place] 00 Form: INJ, PRN, PRN Line Flush, Start date: 02/10/11 21:55:00, Duration: 30 day, Stop date: 03/12/11 20:54:00 aspirin 325 2010-04 No Penelope S 325 mg, M emoria mg tablet 0-31 Shauna Route: PO, l 02:47: Drug form: [place] 00 TAB, ONCE, Priority: STAT, Start date: 02/10/11 21:47:00, Stop date: 02/10/11 21:47:00 metoprolol 2010-04 No Penelope S 50 mg, Mem oria tartrate 0-31 Shauna Route: PO, l 02:47: Drug form: [place] 00 TAB, ONCE, (Hold if SBP < [...] 0-31 Shauna tab, l 02:47: Route: SL, [place] Drug form: TAB, Q5Min, PRN Chest Pain, (Hold if SBP < = 90 mmHg or if < = 100mmHg with symptomati c dizziness) , Start date: 02/10/11 21:47:00, Duration: 3 doses or times, Stop date: Limited # of times morphine 2010-04 No Penelope S 2 mg, Memori a Sulfate 0-31 Shauna Route: l 02:47: IVP, ONCE, [place] 00 Priority: STAT, Start date: 02/10/11 21:47:00, [...] Q12H, l tablet 15:37: Edwards 30 tab, [place] 31 Substituti on Allowed, TAB aspirin 325 [...] Q4H, PRN, l 14:18: [place] 30 tab, [place] 21 Headache, Substituti on Allowed, Maintenanc e, [...] Victoriano Route: l 02:00: [place] IVP, Drug [place] Form: INJ, Q12H, Start date: 01/14/11 21:00:00, Duration: 30 day, Stop date: 02/13/11 9:00:00 Levemir 2010-04 Beth Duncan 70 unit, Nirmal feliz FlexPen 0-04 Minhvu Victoriano 0.7 mL, l 02:00: [place] Route: [place] 00 SUB-Q, Drug form: INJ, Bedtime, Start date: 01/14/11 21:00:00, Duration: 30 day, Stop date: 02/12/11 21:00:00 Lantus 2010-04 Beth Duncan 70 unit, Memor ia 0-04 Minhvu Victoriano Route: l 02:00: [place] SUB-Q, [place] 00 Bedtime, Start date: 01/14/11 21:00:00, Duration: 30 day, Stop date: 02/12/11 21:00:00 glucagon 2010-04 Beth Duncan 1 mg, Memori a 0-04 Minhvu Victoriano Route: IM, l 00:22: [place] Drug form: [place] 00 PDR/INJ, PRN, PRN Blood Glucose Results, [...] Victoriano tab, l 00:21: [place] Route: SL, [place] 00 Drug form: TAB, Q5Min, PRN Chest [...] Victoriano cap, l 00:21: [place] Route: PO, [place] 00 Drug form: CAP, Bedtime, PRN Insomnia, [...] Davis Route: PO, l 22:08: Drug Form: [place] 00 SUSP, ONCE, Routine, Start date: 01/14/11 [...] 0-03 [place] Route: l 20:20: IVP, Drug [place] 00 Form: INJ, PRN, PRN Line Flush, Start date: 01/14/11 15:20:00, Duration: 30 day, Stop date: 02/13/11 15:19:00 ibuprofen Yes Sonal 1 tab, PO, Memoria 400 mg oral 9-10 Raulito Q4H, PRN, l tablet 18:32: 20 tab, [place] 59 Pain, Substituti on Allowed acetaminoph Yes Sonal 1 tab, PO, Memoria en-hydrocod 9-10 Raulito Q4-6H, l one 500 18:32: PRN, 20 [place] mg-5 mg 50 tab, Pain, oral tablet [...] Diastolic (mm Hg) 2017-02-26 06:50:00 Mem orial [place] Respitory Rate 2017-02-26 06:50:00 Memori al [place] Temperature Oral (F) 2017-02-26 06:50:00 97.6 F [facility] [place] Heart Rate 2017-02-26 06:50:00 [facility] [place] Respitory Rate 2017-02-26 04:30:00 Memori al [place] Systolic (mm Hg) 2017-02-26 04:30:00 Nirmal rial [place] Diastolic (mm Hg) 2017-02-26 04:30:00 Mem orial [place] Heart Rate 2017-02-26 04:30:00 [facility] [place] Temperature Oral (F) 2017-02-26 00:55:00 98.8 F [facility] [place] Weight 2017-02-26 00:55:00 [facility] [place] BMI Calculated 2017-02-26 00:55:00 Memori al [place] Height 2017-02-26 00:55:00 162.56 cm [facility] [place] Systolic (mm Hg) 2017-02-26 00:55:00 Nirmal rial [place] Diastolic (mm Hg) 2017-02-26 00:55:00 Mem orial [place] Heart Rate 2017-02-26 00:55:00 [facility] [place] Respitory Rate 2017-02-26 00:55:00 Memori al [place] Respitory Rate 2017-02-25 07:35:00 Memori al [place] Systolic (mm Hg) 2017-02-25 07:35:00 Nirmal rial [place] Diastolic (mm Hg) 2017-02-25 07:35:00 Mem orial [place] Temperature Oral (F) 2017-02-25 07:35:00 98.2 F [facility] [place] Heart Rate 2017-02-25 07:35:00 [facility] [place] BMI Calculated 2017-02-25 05:05:00 Memori al [place] Weight 2017-02-25 05:05:00 [facility] [place] Height 2017-02-25 05:05:00 162.56 cm [facility] [place] Heart Rate 2017-02-25 05:05:00 [facility] [place] Respitory Rate 2017-02-25 05:05:00 Memori al [place] Temperature Oral (F) 2017-02-25 05:05:00 97.8 F [facility] [place] Systolic (mm Hg) 2017-02-25 05:05:00 Nirmal rial [place] Diastolic (mm Hg) 2017-02-25 05:05:00 Mem orial [place] Weight 2017-02-25 04:55:00 [facility] [place] Height 2017-02-25 04:55:00 167.64 cm [facility] [place] Temperature Oral (F) 2017-02-25 04:55:00 97.8 F [facility] [place] BMI Calculated 2017-02-25 04:55:00 Memori al [place] Systolic (mm Hg) 2017-02-25 04:55:00 Nirmal rial [place] Diastolic (mm Hg) 2017-02-25 04:55:00 Mem orial [place] Respitory Rate 2017-02-25 04:55:00 Memori al [place] Heart Rate 2017-02-25 04:55:00 [facility] [place] Temperature Oral (F) 2017-01-26 16:47:00 98.5 F [facility] [place] Heart Rate 2017-01-26 16:47:00 [facility] [place] Respitory Rate 2017-01-26 16:47:00 Memori al [place] Systolic (mm Hg) 2017-01-26 16:47:00 Nirmal rial [place] Diastolic (mm Hg) 2017-01-26 16:47:00 Mem orial [place] Heart Rate 2017-01-26 12:26:00 [facility] [place] Respitory Rate 2017-01-26 12:26:00 Memori al [place] Temperature Oral (F) 2017-01-26 12:26:00 98.4 F [facility] [place] Systolic (mm Hg) 2017-01-26 12:26:00 Nirmal rial [place] Diastolic (mm Hg) 2017-01-26 12:26:00 Mem orial [place] Temperature Oral (F) 2017-01-26 09:50:00 98.1 F [facility] [place] Heart Rate 2017-01-26 09:50:00 [facility] [place] Systolic (mm Hg) 2017-01-26 09:50:00 Nirmal rial [place] Diastolic (mm Hg) 2017-01-26 09:50:00 Mem orial [place] Respitory Rate 2017-01-26 09:50:00 Memori al [place] Height 2017-01-25 05:58:00 157.48 cm [facility] [place] Weight 2017-01-25 05:58:00 [facility] [place] BMI Calculated 2017-01-25 05:58:00 Memori al [place] Weight 2017-01-25 02:01:00 [facility] [place] BMI Calculated 2017-01-25 02:01:00 Memori al [place] Height 2017-01-25 02:01:00 162.56 cm [facility] [place] Systolic (mm Hg) 2016-12-27 06:03:00 Nirmal rial [place] Diastolic (mm Hg) 2016-12-27 06:03:00 Mem orial [place] Respitory Rate 2016-12-27 06:03:00 Memori al [place] Heart Rate 2016-12-27 06:03:00 [facility] [place] Temperature Oral (F) 2016-12-27 06:03:00 98.3 F [facility] [place] Temperature Oral (F) 2016-12-27 04:22:00 98.4 F [facility] [place] Respitory Rate 2016-12-27 04:22:00 Memori al [place] Systolic (mm Hg) 2016-12-27 04:22:00 Nirmal rial [place] Diastolic (mm Hg) 2016-12-27 04:22:00 Mem orial [place] BMI Calculated 2016-12-27 04:22:00 Memori al [place] Weight 2016-12-27 04:22:00 [facility] [place] Heart Rate 2016-12-27 04:22:00 [facility] [place] Height 2016-12-27 04:22:00 162.56 cm [facility] [place] Height 2012-02-06 15:19:00 162.56 cm [facility] [place] Weight 2012-02-06 15:19:00 [facility] [place] Height 2011-11-29 02:35:00 162.56 cm [facility] [place] Weight 2011-11-29 02:35:00 [facility] [place] Height 2011-10-25 02:45:00 162.56 cm [facility] [place] Weight 2011-10-25 02:45:00 [facility] [place] Height 2011-05-23 04:48:00 162.56 cm [facility] [place] Weight 2011-05-23 04:48:00 [facility] [place] Temperature Oral (F) 2011-05-08 02:38:00 98.5 F [facility] [place] Diastolic (mm Hg) 2011-05-08 02:38:00 Mem orial [place] Systolic (mm Hg) 2011-05-08 02:38:00 Nirmal rial [place] Heart Rate 2011-05-08 02:38:00 [facility] [place] Respitory Rate 2011-05-08 02:38:00 Memori al [place] Weight 2011-05-08 00:09:00 [facility] [place] Height 2011-05-08 00:09:00 162.56 cm [facility] Temperature Oral (F) 2011-05-08 00:09:00 98.6 F [facility] Diastolic (mm Hg) 2011-05-08 00:09:00 [facility] Systolic (mm Hg) 2011-05-08 00:09:00 [facility] Heart Rate 2011-05-08 00:09:00 [facility] Respitory Rate 2011-05-08 00:09:00 [facility] Respitory Rate 2011-04-20 07:05:00 [facility] Heart Rate 2011-04-20 07:05:00 [facility] Diastolic (mm Hg) 2011-04-20 07:05:00 [facility] Systolic (mm Hg) 2011-04-20 07:05:00 [facility] Diastolic (mm Hg) 2011-04-20 06:01:00 [facility] Heart Rate 2011-04-20 06:01:00 [facility] Systolic (mm Hg) 2011-04-20 06:01:00 [facility] Respitory Rate 2011-04-20 06:01:00 [facility] Weight 2011-04-20 02:25:00 [facility] Systolic (mm Hg) 2011-04-20 02:25:00 [facility] Temperature Oral (F) 2011-04-20 02:25:00 98.0 F [facility] Respitory Rate 2011-04-20 02:25:00 [facility] Heart Rate 2011-04-20 02:25:00 [facility] Diastolic (mm Hg) 2011-04-20 02:25:00 [facility] Temperature Oral (F) 2011-03-26 06:05:00 98.0 F [facility] Respitory Rate 2011-03-26 06:05:00 [facility] Heart Rate 2011-03-26 06:05:00 [facility] Systolic (mm Hg) 2011-03-26 06:05:00 [facility] Diastolic (mm Hg) 2011-03-26 06:05:00 [facility] Height 2011-03-26 01:58:00 160.02 cm [facility] Weight 2011-03-26 01:58:00 [facility] Temperature Oral (F) 2011-03-26 01:58:00 99.0 F [facility] Diastolic (mm Hg) 2011-03-26 01:58:00 [facility] Systolic (mm Hg) 2011-03-26 01:58:00 [facility] Respitory Rate 2011-03-26 01:58:00 [facility] Heart Rate 2011-03-26 01:58:00 [facility] Diastolic (mm Hg) 2011-02-11 15:37:00 [facility] Respitory Rate 2011-02-11 15:37:00 [facility] Systolic (mm Hg) 2011-02-11 15:37:00 [facility] Heart Rate 2011-02-11 15:37:00 [facility] Temperature Oral (F) 2011-02-11 15:37:00 98.1 F [facility] Diastolic (mm Hg) 2011-02-11 11:53:00 [facility] Systolic (mm Hg) 2011-02-11 11:53:00 [facility] [place] Temperature Oral (F) 2011-02-11 11:53:00 97.5 F [facility] Heart Rate 2011-02-11 11:53:00 [facility] Respitory Rate 2011-02-11 11:53:00 [facility] Height 2011-02-11 07:38:00 162.56 cm [facility] Weight 2011-02-11 07:38:00 [facility] Respitory Rate 2011-02-11 07:38:00 [facility] Temperature Oral (F) 2011-02-11 07:38:00 98.0 F [facility] Heart Rate 2011-02-11 07:38:00 [facility] Systolic (mm Hg) 2011-02-11 07:38:00 [facility] Diastolic (mm Hg) 2011-02-11 07:38:00 [facility] [place] Weight 2011-02-11 02:32:00 [facility] Height 2011-02-11 02:32:00 162.56 cm [facility] Diastolic (mm Hg) 2011-01-15 16:44:00 [facility] Systolic (mm Hg) 2011-01-15 16:44:00 [facility] Temperature Oral (F) 2011-01-15 16:44:00 97.0 F [facility] Heart Rate 2011-01-15 16:44:00 [facility] [place] Respitory Rate 2011-01-15 16:44:00 [facility] Temperature Oral (F) 2011-01-15 12:18:00 97.2 F [facility] Respitory Rate 2011-01-15 12:18:00 [facility] [place] Heart Rate 2011-01-15 12:18:00 [facility] [place] Diastolic (mm Hg) 2011-01-15 12:18:00 [facility] [place] Systolic (mm Hg) 2011-01-15 12:18:00 [facility] Respitory Rate 2011-01-15 09:30:00 [facility] Systolic (mm Hg) 2011-01-15 09:30:00 [facility] Heart Rate 2011-01-15 09:30:00 [facility] Temperature Oral (F) 2011-01-15 09:30:00 97.9 F [facility] Diastolic (mm Hg) 2011-01-15 09:30:00 [facility] [place] Height 2011-01-15 01:35:00 162.56 cm [facility] Weight 2011-01-15 01:35:00 [facility] Height 2011-01-14 20:07:00 162.56 cm [facility] Weight 2011-01-14 20:07:00 [facility] Systolic (mm Hg) 2010-12-22 18:51:00 [facility] [place] Diastolic (mm Hg) 2010-12-22 18:51:00 [facility] [place] Peripheral Pulse Rate 2010-12-22 18:51:00 [facility] Respitory Rate 2010-12-22 18:51:00 [facility] [place] Height 2010-12-22 16:57:00 162.56 cm [facility] Weight 2010-12-22 16:57:00 [facility] Temperature Oral (F) 2010-12-22 16:57:00 98.2 F [facility] Respitory Rate 2010-12-22 16:57:00 [facility] Peripheral Pulse Rate 2010-12-22 16:57:00 [facility] Diastolic (mm Hg) 2010-12-22 16:57:00 [facility] Systolic (mm Hg) 2010-12-22 16:57:00 [facility] Procedures Procedure Date / Time Performed Performing Clinician [facility] e Appendectomy [facility] Cholecystectomy [facility] [place] Partial hysterectomy [facility] Plan of Care Planned Activity Planned Date Details Comments Source Future Scheduled 2019-12-[address] [facility] - Test 00:00:00 (#1) [code = [facility] INFLUENZA VACCINE (#1)] Future Scheduled [address] [facility] 00:00:00 (procedure) [code = [facility] 32833402] Future Scheduled [address] [facility]:00 malignant neoplasm [facility] enter of cervix (procedure) [code = 234164067] Future Scheduled [address] [facility] Test 00:00:00 malignant neoplasm [facility] enter of breast (procedure) [code = 603039879] Future Scheduled [address] [facility] 00:00:00 malignant neoplasm Medical C enter of colon (procedure) [code = 095224461] Encounters Start End Encounter Admission Attending Care Care Encounter Source Date/Time Date/Time Type Type Clinicians Facility Department ID 2018-11-26 2018-11-26 Emergency [facility] [id number] 11:32:46 15:11:00 Edgard Medley [id number] [place] [id number] [place] [id number] 2018-11-26 2018-11-26 Orders Doctor RASHID [id number] 00:00:00 00:00:00 Only Unassigned, [place] [id number] Ten Sleep [facility] [id number] 2017-02-25 2017-02-26 Outpatient Quezada, 2.16.840. 2.16.840.1. 4 [id number] 18:38:00 00:55:00 Rudolph [id number]. [id number] 03 Mateo 3.615.120 5.120 2017-02-24 2017-02-25 Outpatient Quezada, 2.16.840. 2.16.840.1. 4 [id number] 22:49:00 01:35:00 Rudolph [id number]. [id number] 02 Mateo 3.615.120 5.120 2017-01-24 2017-01-26 Outpatient Kayla, 2.16.840. 2.16.840.1 . [id number] 20:53:00 14:35:00 Greg Giron [id number]. [id number] 01 3.615.120 5.120 2016-12-26 2016-12-27 Outpatient Davis, 2.16.840. 2.16.840.1. 4 [id number] 23:03:00 01:05:00 Moise Rjoas [id number]. [id number] 00 3.615.120 5.120 Results Test Description Test Time Test Comments Results Result Comments Source POCT-GLUCOSE METER 2017-10-07 11:53:00 Test Item Value Reference Range Interpretation Comme nts POC-GLUCOSE METER (BEAKER) (test 277 mg/dL 70-110 H TESTED AT [address] POINT code = 1538) [address] [facility] [address] POCT-GLUCOSE [id number] 11:53:00 Test Item Value Reference Range Interpretation Comments POC-GLUCOSE METER 411 mg/dL 70-110 HH TESTED AT [address] (BEAKER) (test code [address]INT [address] [facility] [place] = 1538) [address] RAD, SPINE, CERVICAL, 2 OR 3 [id number] 23:46:00Reason for exam:->neck painFINAL REPORT RAD, SPINE, [...] MDReport Verified Date/Time: 10/06/2017 23:46:30 Reading Location: [address] Transitional Reading Room CT, SPINE, CERVICAL, [...] MDReport Verified Date/Time: 10/06/2017 23:44:40 Reading Location: [address] Transitional Reading Room CT, BRAIN, WITHOUT [...] concern, consider MRI for further evaluation. Signed: Calra Oden MDReport Verified Date/Time: 10/06/2017 23:24:44 Reading Location: [address] Reading Room TROPONIN I 2017-10-06 22:56:00 [...] acute neurological disease, and persistent tachyarrhythmia.COMPREHENSIVE METABOLIC [id number] 22:50:00 Test Item Value Reference Range Interpretation [...] S NOT APPLICABLE FOR DIALYSIS PATIEN TS. [id number] 22:42:00 Test Item Value Reference Range Interpretation Comments AMYLASE (BEAKER) (test code = 349) 58 U/L 30-110 CBC W/PLT COUNT & AUTO [id number] 22:22:00 Test Item Value Reference Range Interpretation [...] 0.00-0.20 (test code = 417) URINALYSIS W/ [id number] 22:09:00 Test Item Value Reference Range Interpretation [...] code = 1663) SOURCE(BEAKER) (test code = 0045) POCT-GLUCOSE [id number] 07:19:00 Test Item Value Reference Range Interpretation Comments POC-GLUCOSE METER 241 mg/dL 70-110 H TESTED AT [address] (ANTHONY) (test code POINT PK [facility] = 1606) [address] CT, [id number] 19:16:00FINAL REPORT CT OF THE ABDOMEN AND [...] MDReport Verified Date/Time: 09/22/2017 19:16:29 Reading Location: [facility] C013W Consult Reading Room BASIC METABOLIC [id number] 17:37:00 Test Item Value Reference Range Interpretation [...] NOT APPLICABLE FOR DIALYSIS PATIEN TS. TROPONIN [id number] 17:07:00 Test Item Value Reference Range Interpretation [...] (test code = 749) 26 U/L 6-51 [id number] 16:51:00 Test Item Value Reference Range Interpretation Comments AMYLASE (BEAKER) (test 32 U/L 30-110 Speci men markedly code = 349) hemolyzed URINALYSIS W/ [id number] 16:21:00 Test Item Value Reference Range Interpretation [...] = 2795) CBC W/PLT COUNT & AUTO [id number] 16:15:00 Test Item Value Reference Range Interpretation [...] L 0.00-0.20 (test code = 417) POCT-GLUCOSE [id number] 15:36:00 Test Item Value Reference Range Interpretation Comments POC-GLUCOSE METER 284 mg/dL 70-110 H TESTED AT [address] (BEAKER) (test code POINT PK [facility] [place] = 1538) [address] CT, [id number] 15:32:00Reason for exam:->LLQ ABD PAINIs the patient [...] prior examination dated 07/09/2016. Signed: Gama Hammonds [facility] Verified Date/Time: 07/07/2017 15:32:20 Reading Location: [facility] B1 C013Y CT Body Reading Room LIPASE 2017-07-07 14:41:00 Test Item Value Reference Range Interpretation Comments LIPASE (BEAKER) (test code = 749) 32 U/L 6-51 COMPREHENSIVE METABOLIC [id number] 14:40:00 Test Item Value Reference Range Interpretation [...] NOT APPLICABLE FOR DIALYSIS PATIEN TS. POCT-GLUCOSE [id number] 14:10:00 Test Item Value Reference Range Interpretation Comments POC-GLUCOSE METER 352 mg/dL 70-110 H TESTED AT [address] (BEAKER) (test code POINT [address] [facility] [place] = 1538) [address] CBC W/PLT COUNT & AUTO [id number] 13:30:00 Test Item Value Reference Range Interpretation [...] 0.00-0.20 (test code = 417) URINALYSIS W/ [id number] 13:01:00 Test Item Value Reference Range Interpretation [...] 1663) SOURCE(BEAKER) (test code = 2795) KETONE, [id number] 12:58:00 Test Item Value Reference Range Interpretation Comments KETONES, BLOOD (BEAKER) (test code 0.1 mmol/L <0.4 = 1103) BLOOD GAS, [id number] 12:48:00 Test Item Value Reference Range Interpretation [...] (test code = 1819) 37.0 % POCT-GLUCOSE [id number] 12:04:00 Test Item Value Reference Range Interpretation Comments POC-GLUCOSE METER > mg/dL 70-110 HH OUTSIDE ME ASURING (BEAKER) ([facility] = 1538[facility] [address] BACTERIAL - [id number] 03:02:00Negative (02/25/17 9:02 PM)[facility] [id number] 03:02:00 Test Item Value Reference Range Interpretation Comments Tube Num CSF (test code = Tube Num CSF) 1 1 [facility] [id number] 03:02:00Clear (02/25/17 9:02 PM)[facility] AOQQEF0932-75-04 03:02:00Colorless (02/25/17 9:02 PM)[facility] [id number] 03:02:00Colorless (02/25/17 9:02 PM)[facility] [id number] 03:02:002[facility] PCYUYJ2493-37-26 03:02:001[facility] EIZRFE5079-57-76 03:02:001[facility] YPOUVT3995-21-00 03:02:002[facility] KNHWBH5870-09-11 03:02:00 Colorless (02/25/17 9:02 PM)[facility] [id number] 03:02:00Clear (02/25/17 9:02 PM)[facility] [id number] 03:02:00 Test Item Value Reference Range Interpretation Comments Tube Num CSF (test code = Tube Num CSF) 4 1 [facility] [id number] 03:02:00Colorless (02/25/17 9:02 PM) [facility] LRPIDJ4378-99-78 03:02:15127Gqtsfjop HermannBODY FLUIDS 2017-02-26 03:02:0055[facility] HermannFUNGAL - MPDBNGWZ9002-27-00 03:02:00 Negative (02/25/17 9:02 PM)[facility] JeqbhgiAQYJXHUBXB1070-93-24 03:02:00Non Reactive (02/25/17 9:02 PM)[facility] HermannMOLECULAR TVSYPSOWYA5359-33-67 03:02:00Negative 2(02/25/17 9:02 PM)[facility]annMOLECULAR DIAGNOSTIC 2017-02-26 03:02:00Negative 1(02/25/17 9:02 PM)[facility]annVIRAL - SEROLOGY 2017-02-26 03:02:00Negative (02/25/17 9:02 PM)[facility]annCHEM PANEL 2017-02-26 01:42:000.9[facility]annCHEM BFFZQ0480-36-07 01:42:0023[facility]annCHEM MBFXJ1586-36-72 01:42:004.3[facility]annCHEM DVRCX7870-81-79 01:42:0011.3[facility]annCHEM UGSAE8716-10-88 01:42:66285Finxktpa HermannCHEM BAIBK0767-20-84 01:42:000.3[facility]annCHE[facility] UICQM3741-54-56 01:42:0016 [facility]CHE[facility] UFEXZ7068-88-01 01:42:0017[facility]annCHEM PANEL 2017-02-26 01:42:008.2[facility]annCHE[facility] HUVGP9592-65-36 01:42:004.3[facility]annCHE[facility] HCHDT1849-18-62 01:42:56531Twdhwcgz HermannCHEM ZDTLF7259-49-54 01:42:000.70[facility]annCHEM MKMST2386-82-37 01:42:81488Ugqlecbb HermannCHEM XPULR2213-02-61 01:42:008.9[facility]annCHEM WTLUL8726-49-25 01:42:0097 [facility]CHE[facility] ZJADC3818-37-64 01:42:0026[facility]annCHEM PANEL 2017-02-26 01:42:06559Mvpzembf HermannCHEM IYUUD1540-14-44 01:42:0016[facility]annCHEM YHUBM6365-05-11 01:42:003.9[facility]annCHEM LEKZN8752-82-92 01:42:001.8[facility] GmkdhkzLAOLSNIKLC8026-04-40 01:42:78617Gfluglqc Jona IMXNNSHCJG5591-14-64 01:42:0082.2[facility] IzjimslNRIJSHWDDL7526-72-48 01:42:00 37.1[facility] IenmcevVPUMCUEZIF0667-90-79 01:42:007.4[facility] HermannHEMATOLOGY 2017-02-26 01:42:0014.1[facility] ByoosaxUEKUUPNEOT3597-46-46 01:42:00 Test Item Value Reference Range Interpretation Comments MCH (test code = MCH) 27.6 pg 27.0-31.0 [facility] XdpxvjuCTFBSJOKSJ5293-85-55 01:42:0033.6[facility] HermannHEMATOLOGY 2017-02-26 01:42:004.52[facility] PaxgwpaINALOXKFLD4881-23-98 01:42:0012.5[facility] ZbmfuytJVWIXKQKBG6252-40-75 01:42:007.1[facility]orial QpruwxzGDAZBWYKSV9677-80-86 01:42:000.8[facility] DgejpgeBEQQXMBOIP8007-72-28 01:42:002.8[facility] KXWQQJTISC6124-60-79 01:42:003.8[facility] FzgnlpqDYTBORAWBI9235-94-05 01:42:000.4 [facility] RrwwncxBGTAYGSFBF5185-97-26 01:42:0053.4[facility] HermannHEMATOLOGY 2017-02-26 01:42:0039.1[facility] GjrvierYBUTLGIXMF9087-00-48 01:42:001.4[facility] BaohpmaAEWNEHKXWL9492-86-01 01:42:005.3[facility] XsnrbcdYRHONQIAFY6952-22-43 01:42:000.1[facility] QyruvubSKWABFWEIS2721-24-80 01:42:000.1[facility] HermannURINE AND FARCD7588-80-34 01:42:000.2[facility] AND VWBVS5833-79-80 01:42:00Negative (02/25/17 7:42 PM)[facility] AND NZJRA9821-02-73 01:42:00Negative *NA*(02/25/17 7:42 PM)[facility] VSRVA7120-29-18 01:42:00Negative *NA*(02/25/17 7:42 PM)[facility] GUOGP1971-09-25 01:42:00Negative (02/25/17 7:42 PM)[facility] AND QYXLZ9957-63-19 01:42:00Negative (02/25/17 7:42 PM)[facility] RKEAR3915-10-67 01:42:00Negative (02/25/17 7:42 PM)[facility] AND JDPXP8696-47-90 01:42:00 Test Item Value Reference Range Interpretation Comments UA pH (test code = UA pH) 6.0 1 5.0-8.0 [facility] [id number] 01:42:00 Test Item Value Reference Range Interpretation Comments UA Spec Grav (test code = UA Spec 1.010 1 Grav) [facility] TDGWU2247-92-98 01:42:00Yellow *NA*(02/25/17 7:42 PM) [facility] AND NTDZC4263-73-59 01:42:00Slight Cloudy (02/25/17 7:42 PM)[facility]annVIRAL - QUVRPTUS9443-03-88 01:42:00Negative (02/25/17 7:42 PM)[facility]annVIRAL - WYEHCZAY5770-05-51 01:42:00Negative (02/25/17 7:42 PM)[facility]annCHEM HFGYW7460-64-79 09:02:21394Vcseswmj HermannCHEM PANEL 2017-01-26 09:02:000.2[facility] HermannCHEM XKMIW3610-18-60 09:02:03193Iclcvbub HermannCHEM CYFZP2882-69-55 09:02:0012[facility] HermannCHEM LAONI9977-66-49 09:02:003.3[facility]annCHEM ABJDZ6150-31-49 09:02:002.4[facility]annCHEM CWXQQ7136-84-70 09:02:005.7[facility]annCHEM VVPNF4867-52-20 09:02:009.7 [facility]annCHEM XYDIT9724-15-39 09:02:53932Ktdiydlm HermannCHEM PANEL 2017-01-26 09:02:007.4[facility] HermannCHEM NNITA5067-85-92 09:02:000.7[facility] HermannCHEM EMKUV2183-38-81 09:02:000.40[facility] HermannCHEM LOENI7671-39-14 09:02:005[facility]annCHEM NHZEC6569-34-47 09:02:0037[facility] HermannCHEM PLIWB0677-77-83 09:02:0044[facility]annCHEM SFDTB5343-92-91 09:02:003.7 [facility]annCHEM IVAUI6196-30-10 09:02:48297Babxiotp HermannCHEM PANEL 2017-01-26 09:02:0025[facility]annCHEM XFMRE0182-04-18 09:02:92392Fsvnxuql HermannCARDIAC CBMESNW9997-79-22 22:26:00<0.02[facility] HermannPARATHYROID UNSACNN3647-27-31 22:26:000.99[facility] HermannPARATHYROID ZAEEZTQ2096-19-80 22:26:001.01[facility]annCHEM KQKDT9775-57-14 20:00:002.6[facility]annCHEM GAYYH3216-10-59 20:00:32627Bpfxfdsg HermannCHEM KBMID3999-18-39 20:00:000.50 [facility]annCHEM MRYFV6257-16-36 20:00:72268Yzzdfwgz HermannCHEM PANEL 2017-01-25 20:00:003.6[facility]annCHEM BHBIZ6477-22-89 20:00:0025[facility]annCHEM CYGFF1307-70-06 20:00:77872Nwrxsudy HermannCHEM YTCBR4896-23-71 20:00:008.6[facility]annCHEM TEFUU6320-96-05 20:00:006.9[facility]annCHEM TAJQB9924-46-14 20:00:36748Mejpjnjv HermannCHEM MFDSO3148-02-55 20:00:008 [facility]annCHEM QFIBH0915-13-49 08:54:002.7[facility] HermannCHEM PANEL 2017-01-25 08:54:90346Jprrxrdr HermannCHEM YRYHS1987-74-05 08:54:000.60[facility]annCHEM YUPVT8157-36-07 08:54:009[facility]annCHEM DSKMW5225-30-28 08:54:89292Adhdkmhs HermannCHEM CHSWU2200-29-26 08:54:0012.5[facility] HermannCHEM XTDRG4130-13-99 08:54:003.5[facility]annCHEM UDRIP3647-54-91 08:54:56185 [facility]annCHEM AMWXC3648-61-07 08:54:0023[facility] HermannCHEM PANEL 2017-01-25 08:54:007.1[facility] HermannCHEM JNGBC4433-52-30 08:54:77426Huvpnccp HermannCHEM NCRIA3436-70-69 08:54:001.7[facility] JbvrusmHXDSAHJCMY2286-52-42 08:54:007.4[facility] XbaplkzILLJDKALCF1541-66-44 08:54:0013.6[facility] ZUBYBXADLQ9905-46-42 08:54:81866Tjpruhxa WhirgzmUQCYCDVSXX2034-68-73 08:54:00 33.4[facility] JcvmaqtPWZRHPXULQ9195-51-68 08:54:0082.5[facility] HermannHEMATOLOGY 2017-01-25 08:54:00 Test Item Value Reference Range Interpretation Comments MCH (test code = MCH) 27.6 pg 27.0-31.0 [facility] LvcvnwtLRXJHNQLMH3344-71-52 08:54:0010.7[facility] HermannHEMATOLOGY 2017-01-25 08:54:0032.0[facility] UwgduzgJAXOFSDXXL7099-27-10 08:54:005.5[facility] CgktkvmHHTYBZAZEI3903-10-70 08:54:003.88[facility] GjdvrnvUUIHBVLCXC1071-83-50 08:54:007.2[facility] UsqhnwzTJRVTKUQCS5107-59-17 08:54:000.4[facility] KLSWZGZZHF4349-77-60 08:54:003.0[facility] TbgxkgjSFVLFNZGOS6526-66-80 08:54:002.0 [facility] FwebqzhFBPVTLLUXA1701-44-13 08:54:000.9[facility] HermannHEMATOLOGY 2017-01-25 08:54:000.6[facility] ZdvfrncFFENVNEUJR5003-01-88 08:54:0036.3[facility] ZkemlzwUMAPGKXLMV9646-79-04 08:54:0055.0[facility]annURINE AND STOOL 2017-01-25 04:54:00Negative (01/24/17 11:54 PM)[facility] STOOL 2017-01-25 04:54:00Positive *ABN*(01/24/17 11:54 PM)[facility] WMIMY3927-69-30 04:54:00Negative (01/24/17 11:54 PM)[facility] TDDIA6352-56-61 04:54:00Negative *NA*(01/24/17 11:54 PM)[facility] VDKAY1029-67-59 04:54:00Negative (01/24/17 11:54 PM)[facility] ZUHGZ3896-26-18 04:54:000.2[facility] AND ZDVBB2540-29-51 04:54:00Negative *NA*(01/24/17 11:54 PM)[facility] STOOL 2017-01-25 04:54:00 Test Item Value Reference Range Interpretation Comments UA pH (test code = UA pH) 5.5 1 5.0-8.0 [facility] TONRQ9069-55-29 04:54:00<=1.005 *NA*(01/24/17 11:54 PM)[facility] TUJGR5609-46-66 04:54:00Yellow *NA*(01/24/17 11:54 PM)[facility] IEFPS7800-12-54 04:54:00Clear (01/24/17 11:54 PM) [facility]annCARDIAC AIUKUIF6586-12-75 02:44:0062[facility]annCARDIAC BASWTWU7521-28-52 02:44:00<1.0[facility]annCARDIAC KZKMNBP5745-81-54 02:44:00<0.02[facility]annCARDIAC CIEZMYJ7530-26-48 02:44:00<1.6 [facility]annCHEM IIMBR5837-97-39 02:44:0014[facility]annCHEM PANEL 2017-01-25 02:44:000.5[facility]annCHEM QIRWP4987-75-51 02:44:0037[facility]annCHEM ZPHQU4362-35-24 02:44:08626Ngrcgnnc HermannCHEM CBXWQ9027-83-56 02:44:000.7[facility]annCHEM QRCOW6214-90-12 02:44:004.7[facility]annCHEM HNDKK4445-66-95 02:44:003.5[facility]annCHEM JOOWH6528-06-58 02:44:0016 [facility]annCHEM EIRKK0037-93-92 02:44:008.2[facility]annCHEM PANEL 2017-01-25 02:44:85480Eidiymxf CqddoutQCMVNTKDGU8605-77-53 02:44:0013.7[facility] MhigbwbWNHSOECWPX4312-80-38 02:44:0041.6[facility] AcyipinFODADJHKXH2043-22-63 02:44:0083.6[facility] NtowxmoBIBABTBGGN3246-17-05 02:44:00 Test Item Value Reference Range Interpretation Comments MCH (test code = MCH) 27.5 pg 27.0-31.0 [facility] SgjgcfxQWZCFWRPCC5017-16-80 02:44:0032.9[facility] HermannHEMATOLOGY 2017-01-25 02:44:0013.6[facility] BnxmlddKLLYJBXNVJ5308-05-28 02:44:03765Bhoslvqf BexdxieMWFLGJXIOR1617-01-88 02:44:008.1[facility] SpucqivRMWJGZDYHU4438-41-06 02:44:005.8[facility] ZshmsnvKHTHBTBHRP5407-50-50 02:44:004.97[facility] [place] WJSBSFCECG3176-40-26 02:44:000.4[facility] HnfvspxBWYEVQPCWK7620-24-67 02:44:000.7 [facility] VersfyxKOHARLEUVH9411-83-43 02:44:003.5[facility] HermannHEMATOLOGY 2017-01-25 02:44:007.1[facility] DzrcaqoYRKPUOTCFZ9147-22-10 02:44:000.6[facility] GddfqisKWBQATIVUR7817-91-22 02:44:001.8[facility] HirqzbqLPUZXHBVMS0484-90-54 02:44:0059.9[facility] LlhesasQATUVBJWDP6734-40-84 02:44:0031.7[facility] URINE YZBXKOB2388-31-09 09:22:00 Test Item Value Reference Range Interpretation [...] S Sulfamethoxazole (test code = 47) POCT-GLUCOSE [id number] 23:15:00 Test Item Value Reference Range Interpretation Comments POC-GLUCOSE METER 227 mg/dL 70-110 H TESTED AT [address] (BEAKER) (test code [facility] [place] = 1538) [address] URINALYSIS W/ ONOGGOKDKWM3468-30-82 22:36:00 Test Item Value Reference Range Interpretation [...] 1663) SOURCE(BEAKER) (test code = 2795) KETONE, [id number] 22:32:00 Test Item Value Reference Range Interpretation Comments KETONES, BLOOD (BEAKER) (test code 0.6 mmol/L <0.4 H = 1103) BLOOD GAS, [id number] 22:30:00 Test Item Value Reference Range Interpretation [...] (test code = 1819) 21.0 % SCREEN, [id number] 22:29:00 Test Item Value Reference Range Interpretation Comments TEST URINE (BEAKER) (test Negative code = 583) TROPONIN [id number] 21:42:00 Test Item Value Reference Range Interpretation [...] CK-MB Reference Range:<5 Normal5-10 Borderline>10 AbnormalCOMPREHENSIVE METABOLIC [id number] 21:34:00 Test Item Value Reference Range Interpretation [...] S NOT APPLICABLE FOR DIALYSIS PATIEN CHANCE. [id number] 21:32:00 Test Item Value Reference Range Interpretation Comments LIPASE (BEAKER) (test code = 749) 28 U/L 6-51 CBC W/PLT COUNT & AUTO BSBVIJQLXYKO0030-10-04 20:55:00 Test Item Value Reference Range Interpretation [...] L 0.00-0.20 (test code = 417) POCT-GLUCOSE [id number] 20:56:00 Test Item Value Reference Range Interpretation Comments POC-GLUCOSE METER 446 mg/dL 70-110 HH Notified R Diana DALTON/TESTED AT ([facility]) (test code [address] = [address]) [address] [facility] [address] BEDSIDE GLUCOSE PFCUUMF2005-28-63 15:13:15925Pvkymzlr HermannBEDSIDE GLUCOSE ALJJBYS6497-11-06 04:18:73112Kbzlectx NuxvnunCBFYTUJSD3369-14-95 03:05:000.14 [facility] KsswhmuQCJPIWEWH0559-54-08 03:05:008[facility] BzavjliCUIOYNTXA5990-18-59 03:05:000.2[facility] GenopgrXWMOVNYXL1767-76-39 03:05:0027[facility] Jona LOJFLWFOE0781-08-17 03:05:0013.2[facility] VbxhmwhDOMCTYTLP2999-35-47 03:05:008.8 [facility] FksqxhvEVYTFPHGC5492-34-64 03:05:007.6[facility] HermannCHEMISTRY 2011-11-29 03:05:0016[facility] QchhakxBSBPVOKWK9168-57-87 03:05:003.8[facility] BycfbxtYFGTMEFBS4473-39-14 03:05:003.8[facility] AqtdyocCXDWIBFZZ7759-58-48 03:05:001.0[facility] ZrzhckvORLEWAJCE1481-24-08 03:05:85130Oanufgtm [place] KQQETJJOY7271-38-20 03:05:0013[facility] ZpbgoeyLUEHFAEMG0343-16-51 03:05:25945 [facility] NnjlvwgQZVNWVTXM8271-48-05 03:05:0098[facility] HermannCHEMISTRY 2011-11-29 03:05:000.7[facility] BjdbdnuZYKGEOXSR7674-58-93 03:05:0011[facility] IzrvvkhHTVQAGNIM9285-33-46 03:05:004.2[facility] FtctnplVXFZAYYYI4640-33-95 03:05:58348Ggncsxxg EkxbknnLIPIJIGLXS8957-27-35 03:05:004.41[facility] [place] INUTAMQZQD1066-06-73 03:05:005.7[facility] UfeneteEZOHIUCZVG6303-27-71 03:05:00 33.2[facility] KjlsisdOCRXXTPNFP9445-23-41 03:05:0012.9[facility] HermannHEMATOLOGY 2011-11-29 03:05:0013.8[facility] YwevnrgOQEDUQYYIA6376-35-21 03:05:0088.4[facility] OetkjgjJNBBPOEWJA6416-34-59 03:05:00 Test Item Value Reference Range Interpretation Comments MCH (test code = MCH) 29.3 pg 27.0-31.0 N [facility] MlvzmmlRIZGQITCPB3572-41-41 03:05:0038.9[facility] HermannHEMATOLOGY 2011-11-29 03:05:007.5[facility] EtgcgreHUIXAVMIKU8234-22-90 03:05:95254Ibicnrzi AuzxmonBRXUNSJOJU6338-45-25 03:05:0057.5[facility] ZhliihtKBSCEXOZOW0878-07-62 03:05:000.5[facility] AwbbcmpGQYGERKXTU3747-12-57 03:05:001.5[facility] [place] MCXHFUTXKN2548-90-59 03:05:005.3[facility] VsylhcfOAOZJCMSVB8290-79-32 03:05:00 35.2[facility] OwfaeyjBWVUBATHBT0996-33-72 03:05:002.0[facility] HermannHEMATOLOGY 2011-11-29 03:05:003.3[facility] YuodnzhQXJBBTJGOR2611-23-00 03:05:000.1[facility] WkunsezRWTWTGQIYU9685-61-60 03:05:000.3[facility] ZndugayZCMAZZTURQ9067-40-05 03:05:000.0[facility] JjjxfgdLNTQOXQCHU7523-92-97 03:05:00 Test Item Value Reference Range Interpretation Comments UA Spec Grav (test code = UA Spec 1.010 1 N Grav) [facility] CtosbkiODWMKUUJVL0034-54-10 03:05:00 Test Item Value Reference Range Interpretation Comments UA pH (test code = UA pH) 5.5 1 5.0-8.0 N [facility] HvxepgvFZVQITJTCV8829-50-38 03:05:00Yellow *NA*(11/28/2011 22:05:00) [facility] VysertwXIMENVQOTH9699-41-69 03:05:00Clear (11/28/2011 22:05:00)[facility] BfklxslIWPWLFPRZK5218-65-02 03:05:00Negative (11/28/2011 22:05:00)[facility] ZtbzjuoZNALFEZYCQ2853-40-13 03:05:00Negative (11/28/2011 22:05:00)[facility] HugzvakEABNSYGLIE5397-70-43 03:05:000.2[facility] LcnxqovDSHKANACFP0300-24-27 03:05:00>=1000 mg/dL *ABN*(11/28/2011 22:05:00)[facility] HermannURINALYSIS 2011-11-29 03:05:00Negative mg/dL *NA*(11/28/2011 22:05:00)[facility] SHQDTMTSCJ1453-09-92 03:05:00Negative mg/dL (11/28/2011 22:05:00)[facility] IrdfbanXEFDTNTOBD1377-80-01 03:05:00Negative (11/28/2011 22:05:00)[facility] VqtffetNVRZIMUQEL2750-23-52 03:05:00Negative *NA*(11/28/2011 22:05:00)[facility] QiljsleIKMGTYVWCU0217-07-07 03:05:00Rare /LPF (11/28/2011 22:05:00)[facility] LczvguvUAIAEEQVWS8399-35-25 03:05:00Occasional /HPF (11/28/2011 22:05:00) [facility] ZwdppzeBWLLFNIFSH5143-81-61 03:05:000-2 /HPF (11/28/2011 22:05:00) [facility] ZzsigxnVMHRZICEKR3994-11-51 03:05:000-2 /HPF (11/28/2011 22:05:00) [facility] JnqntsvDKBYRHRWLM2090-29-49 03:05:00Performed (11/28/2011 22:05:00) [facility] KQCCTVQ9566-04-86 02:45:00>400[facility]annBED[facility]IDE GLUCOSE UGKYTYQ9242-92-98 06:10:86824Bjcuzobp HermannBEDSIDE GLUCOSE SPMDAJT4673-24-65 05:04:0094[facility] OcnjunhVSBISPZUF8109-28-03 03:06:00 72[facility] RwulwhrGIYSPJOBJ8851-84-26 03:06:0040[facility]annCHEMISTRY 2011-10-25 03:06:007.42[facility] WbwjacyXKCKKRFFS4688-17-24 03:06:000.0[facility] KamadqoGUPDAIKIW9798-79-69 03:06:00Rm Air (10/24/2011 22:06:00)[facility] IGRVXPYCW3028-32-80 03:06:0095.0[facility] IptqcxyUVXGXWHVA9859-71-61 03:06:001 [facility] IvswijkQWOMMNNBL2526-83-74 03:06:0026[facility] HermannCHEMISTRY 2011-10-25 03:05:84918Bowusfem MosnccaZEDNUABQA2838-76-94 03:05:50501Cnecfcll InjbfhsXSYPGCHOM9199-43-09 03:05:0019[facility] JrbmaeiYMADJXINX7186-63-74 03:05:008.4[facility] DakdacqDCELPXGHE5722-86-97 03:05:97422Nonchksk Jona JEVLJXNJF5395-63-65 03:05:38076Dftfaskw IjjlousJLYODMNLJ6746-98-54 03:05:003.8 [facility] GlcbrsqDRAVBKKDY5784-43-02 03:05:003.7[facility] HermannCHEMISTRY 2011-10-25 03:05:0027[facility] QepoerdAFSQEGWPF3404-95-66 03:05:0012.2[facility] UabcqmbEIWXWUSPY2881-82-73 03:05:004.2[facility] ZegaskuVEHKXILWV0541-92-19 03:05:000.8[facility] NpnskmsUJUSEQLIN3441-04-80 03:05:21756Pghhktfg [place] JRPFZZSCF2900-40-39 03:05:0024[facility] ThrpastGXSIIWTYX5148-35-73 03:05:007.5 [facility] YcivxdmCACPQYOVX7145-57-22 03:05:0010[facility] HermannCHEMISTRY 2011-10-25 03:05:44267Vhqazisw RkadmeoMTUOVSXLM1354-79-95 03:05:000.3[facility] LxtngzlURSODMANL8328-54-26 03:05:001.0[facility] WpwmkdsYEUBCSTIQ2214-32-38 03:05:0017[facility] UiyolzaADGWJQVVP1201-96-85 03:05:000.22[facility] ARQSELMGTL4558-34-83 03:05:000.1[facility] UvlepaaYTGVPSOQOZ7276-26-62 03:05:002.0 [facility] JbkodivWDOUFLDMNV8324-42-91 03:05:000.0[facility] HermannHEMATOLOGY 2011-10-25 03:05:000.4[facility] TjcozfhVBGZCSOEZN1825-65-77 03:05:0029.4[facility] JxftcqeNKGPMBBQIP4400-46-00 03:05:004.3[facility] WailblaCOISQDGNGU4992-52-43 03:05:005.7[facility] ZpniigyCUHPRDLSUK2421-44-22 03:05:000.4[facility] [place] FDTPHQVWUO5060-65-16 03:05:001.2[facility] TgyowwnPLLLDAKCDD2579-74-78 03:05:00 63.3[facility] QsbnwzgAHQTOJEYEI8124-06-45 03:05:0014.0[facility] HermannHEMATOLOGY 2011-10-25 03:05:46304Xpyeyfho BcrxtorQKOWISHPPD0355-75-04 03:05:008.0[facility] AxtlyncWIFZFCYYDA1060-43-29 03:05:0013.3[facility] KvqkvicGFHTEIHPZI0186-58-48 03:05:0039.4[facility] KvogzsnNUTWBJGAOE8216-72-18 03:05:0086.2[facility] XLIKNSUCRC2171-54-76 03:05:00 Test Item Value Reference Range Interpretation Comments MCH (test code = MCH) 29.1 pg 27.0-31.[address] [facility] GgpjtehPQPQHMFFHT8968-20-73 03:05:0033.8[facility] HermannHEMATOLOGY 2011-10-25 03:05:006.9[facility] AvqvpvbLVNHGLIZZK8681-66-39 03:05:004.57[facility] WwrxqeiPEDYZSOGYI9181-89-49 03:05:00Positive *ABN*(10/24/2011 22:05:00)[facility] KadnveaJIRHOXVSQX7530-27-26 03:05:00Negative (10/24/2011 22:05:00)[facility] FvyfwquNAXFBAMBAI0266-89-21 03:05:00Negative (10/24/2011 22:05:00)[facility] YkhlsxbRKCWATNDHV3409-28-27 03:05:00>=1000 mg/dL *ABN*(10/24/2011 22:05:00) [facility] NbgktidEWEOYQVGZC1407-46-40 03:05:00 Test Item Value Reference Range Interpretation Comments UA pH (test code = UA pH) 6.0 1 5.0-8.[address] [facility] ZduaaktENICCVUVPT3512-49-64 03:05:00 Test Item Value Reference Range Interpretation Comments UA Spec Grav (test code = UA Spec 1.015 1 N Grav) [facility] EcwkrzjHDSSMMGBPS8718-13-57 03:05:00Yellow *NA*(10/24/2011 22:05:00) [facility] HccbpnlZXJKPVXPIN3918-90-44 03:05:00Clear (10/24/2011 22:05:00)[facility] HiboycbDFZVAUNVYO6444-50-12 03:05:000.2[facility] DnsugikIWRLMRPWCR0690-79-06 03:05:00Negative *NA*(10/24/2011 22:05:00)[facility] FkmjftbVWAZHBSDMZ6222-71-84 03:05:00Negative (10/24/2011 22:05:00)[facility] FeudjogALDEENJDRH5347-28-12 03:05:00Negative *NA*(10/24/2011 22:05:00)[facility] GzieayxKOTCDWMAGM3706-75-86 03:05:00Rare /LPF (10/24/2011 22:05:00)[facility] RfaeniaVGGPNKFOGK4228-66-88 03:05:00Moderate /HPF (10/24/2011 22:05:00)[facility] MhyuihcMXNUJDUBVA1697-09-52 03:05:000-2 /HPF (10/24/2011 22:05:00)[facility] PyxsjvySMIHJRATWV8495-93-65 03:05:00Performed (10/24/2011 22:05:00)[facility] HhnehyjPISYILJRZP5858-00-61 03:05:006-10 /HPF *ABN*(10/24/2011 22:05:00)[facility] YuoqfciEXFMOEIVNB1775-44-63 03:05:00Rare /LPF (10/24/2011 22:05:00)[facility] HermannBEDSIDE GLUCOSE TESTING 2011-10-25 02:43:00>400[facility] HermannBEDSIDE GLUCOSE CVFAQNY3551-73-15 08:15:21926Swxjgjhh HermannBEDSIDE GLUCOSE TDPNGWF7327-28-90 07:07:00>400 [facility] ZiiwuoaOODWYUXBB5649-98-25 05:10:07115Azvblymz HermannCHEMISTRY 2011-05-23 05:10:000.8[facility] AsktpadNJAZFLHVV0700-79-29 05:10:0026[facility] IphrbnuXNQVMFTLZ5046-30-86 05:10:0096[facility] LdslaifIPCRWGZBS7137-70-72 05:10:003.9[facility] AtivwrgSRYVWIGZC4813-63-66 05:10:0012.9[facility] NGATGUDOH6865-05-58 05:10:004.0[facility] XbwauzdGBIGWKZCP8204-63-75 05:10:007.8 [facility] QpontmpTZAUDMTVU6640-61-74 05:10:0015[facility] HermannCHEMISTRY 2011-05-23 05:10:77676Ktzfykgv GpwdmiiAKWTBJXMM3170-15-94 05:10:001.1[facility] CiufzwsRKSWHHRNT6881-87-06 05:10:003.8[facility] TceasgvUNJHFAMUQ2700-04-80 05:10:008.6[facility] FlmmlgmTDZBIEIGL5739-86-83 05:10:0011[facility] SZXPZOBKC2527-93-01 05:10:000.4[facility] XqkuaesWLLNYXZVD6285-31-03 05:10:00042 [facility] YslirinBOYFHNZEK3594-80-95 05:10:0015[facility] HermannCHEMISTRY 2011-05-23 05:10:63439Ehanjhki EpqzkjqTSMZAMDZX4414-86-38 05:10:0012[facility] GhldnzfUXXLYBGHE3406-29-17 05:10:13457Tozozjrs LyvpxpgXOQDEZLKW7602-56-70 05:10:000.36[facility] AkowwqtDXNGHWECVV4779-70-31 05:10:73702Sscwxsid [place] EOEQPJUKJO7819-36-93 05:10:0034.3[facility] QxrkoavHWWESUVQQX5982-07-06 05:10:00 7.9[facility] SkjdfkrNOOKEGJXSV3817-21-95 05:10:0013.0[facility] HermannHEMATOLOGY 2011-05-23 05:10:00 Test Item Value Reference Range Interpretation Comments MCH (test code = MCH) 29.5 pg 27.0-31.0 N [facility] KdqnfyeMGCACTHRIN9589-46-54 05:10:0038.1[facility] HermannHEMATOLOGY 2011-05-23 05:10:0086.0[facility] LzzufoiUAMQXDCTNV3188-23-69 05:10:004.43[facility] GldvwwsWBXBWNVQVN7404-63-46 05:10:005.9[facility] GtkaitsLWLLTDBLDT3781-28-20 05:10:0014.0[facility] GwaerkiEFIINGXYPP2950-52-54 05:10:000.0[facility] GIMWLOTRKS0320-22-07 05:10:001.7[facility] TxzgwtlLERFCKAQKM3771-69-79 05:10:000.3 [facility] OiyadblXNJWLIYMYT3321-20-95 05:10:000.6[facility] HermannHEMATOLOGY 2011-05-23 05:10:003.8[facility] OuvmmlyTNPKRLSDXR6034-94-85 05:10:000.1[facility] GsqvefhIDAXSXKUOG5465-58-41 05:10:004.7[facility] FtwqpwyLGZWGJGQBN6670-10-33 05:10:0028.9[facility] XdxnpyeYCLECKYLEL6571-15-89 05:10:002.5[facility] AHUWNGREGT8071-02-29 05:10:0063.3[facility] SpkxcsiWLDESINKIZ2724-93-22 05:10:000- 2 /HPF (05/22/2011 23:10:00)[facility] EofydokXKTUQSQRUQ2532-51-25 05:10:00 Occasional /HPF (05/22/2011 23:10:00)[facility] PvejijaYLFSRXAFPJ5817-95-90 05:10:00Negative (05/22/2011 23:10:00)[facility] HrsbqcyBYHFGHKZQE9943-50-67 05:10:00Negative *NA*(05/22/2011 23:10:00)[facility] DotcrtjOINDCWCOBK6186-67-34 05:10:00>=1000 mg/dL *ABN*(05/22/2011 23:10:00)[facility]annURINALYSIS 2011-05-23 05:10:00Negative (05/22/2011 23:10:00)[facility]annURINALYSIS 2011-05-23 05:10:00 Test Item Value Reference Range Interpretation Comments UA pH (test code = UA pH) 5.0 1 5.0-8.0 N [facility] UfsyqjnKFBFIELDLX8173-23-94 05:10:003-5 /HPF (05/22/2011 23:10:00) [facility] NmugahaIDVOXARQXJ2209-65-24 05:10:00Rare /LPF (05/22/2011 23:10:00) [facility] OkcspgrMNHQDFRIVH7261-65-12 05:10:000.2[facility] HermannURINALYSIS 2011-05-23 05:10:00Negative (05/22/2011 23:10:00)[facility]annURINALYSIS 2011-05-23 05:10:00Negative *NA*(05/22/2011 23:10:00)[facility]annURINALYSIS 2011-05-23 05:10:00Negative (05/22/2011 23:10:00)[facility]annURINALYSIS 2011-05-23 05:10:00Performed (05/22/2011 23:10:00)[facility]annURINALYSIS 2011-05-23 05:10:00Yellow *NA*(05/22/2011 23:10:00)[facility]annURINALYSIS 2011-05-23 05:10:00Clear (05/22/2011 23:10:00)[facility]ALYSIS 2011-05-08 00:16:00Negative (05/07/2011 18:16:00)[facility]annURINALYSIS 2011-05-08 00:16:000.2[facility] JxsmwwlGASUUBCXTA3437-39-20 00:16:00Negative *NA*(05/07/2011 18:16:00)[facility] UuagopwOMTJHKZPEU3022-05-41 00:16:00Large *ABN*(05/07/2011 18:16:00)[facility] OrhizigSXBGXKNQMW5265-66-93 00:16:006-10 /HPF *ABN*(05/07/2011 18:16:00)[facility] JvrbzdfOQMJJXTAKL8244-19-33 00:16:00 Occasional /HPF (05/07/2011 18:16:00)[facility] IumenyzKAGDPJVFUX5761-11-31 00:16:00Performed (05/07/2011 18:16:00)[facility] OkxljfrLTVLXBKGZS1183-49-22 00:16:00Few /LPF (05/07/2011 18:16:00)[facility] CmdxktfUKJRAJOOIA1559-79-85 00:16:00Negative (05/07/2011 18:16:00)[facility] LruepdgSZJQDYURGJ1016-77-44 00:16:0021-50 /HPF *ABN*(05/07/2011 18:16:00)[facility]annURINALYSIS 2011-05-08 00:16:00Trace *ABN*(05/07/2011 18:16:00)[facility] 00:16:00>=1000 mg/dL *ABN*(05/07/2011 18:16:00)[facility] NPDAENQHTE9735-56-84 00:16:00Negative (05/07/2011 18:16:00)[facility] XRSCQNHUVM5936-19-39 00:16:00 Test Item Value Reference Range Interpretation Comments UA Spec Grav (test code = UA Spec 1.010 1 N Grav) [facility] YdzowssQNAFZIOFGB7565-08-49 00:16:00Clear (05/07/2011 18:16:00)[facility] CenterZrpaodsNIZXYKESPD5415-84-92 00:16:00 Test Item Value Reference Range Interpretation Comments UA pH (test code = UA pH) 6.0 1 5.0-8.[address] [facility] EnfdogaOSLQFYOODI2519-53-74 00:16:00Yellow *NA*(05/07/2011 18:16:00) [facility] KFDEDJN3201-32-50 06:51:86792Erjwqdri J[facility] DWTILOSDJ8157-51-87 04:20:00Negative (04/19/2011 22:20:00)[facility] QZLVZGOVB1316-38-76 04:20:004.1[facility] SzgmkpsYFLDMOKMB0478-90-13 04:20:0015 [facility] DwitwhiRZIHDPFFV0813-42-89 04:20:009.2[facility] HermannCHEMISTRY 2011-04-20 04:20:0096[facility] XitzxgwIIWGIBGBY1224-22-61 04:20:0016.2[facility] QwjkvwzAMEQSYFRJ3392-08-44 04:20:0024[facility] RwfsdfbFMBDVPIPT5421-19-72 04:20:004.0[facility] XspzrrvXTBEFWPXC5533-15-07 04:20:008.1[facility] EXHEFLOSH4138-03-43 04:20:000.4[facility] KimmjflUFWJUOSXY2038-37-43 04:20:0092 [facility] FsixcgxKKVUDLQQB6672-68-66 04:20:004[facility] BmkqfseNLJMKNEOQ1363-78-20 04:20:0014[facility] VoawnmfVFYXEWKZJ2138-63-57 04:20:001.0[facility] [place] LZMUTIEQO0474-49-88 04:20:25118Uesavohq EtkptxcDTRRSXIRQ2754-07-31 04:20:000.8 [facility] VsrzcoeZBUVMWAYG3981-34-08 04:20:0012[facility] HermannCHEMISTRY 2011-04-20 04:20:004.2[facility] FikapygYSFBAGXDA6612-67-29 04:20:78972Hcjnypym UkotzvsTCWKLOCPN9059-46-90 04:20:25589Zjhzmngh UemxxpdHDRKYOYKR5125-52-68 04:20:0070[facility] SgjjhuvBRYQEEIOEH4276-05-47 04:20:007.9[facility] BIDSIQHETN2931-38-64 04:20:45867Bmpjreny AmpozcpBLMMOFLGJB1437-73-83 04:20:00 4.54[facility] AcjzvwcCNNDFFUWPR7461-05-86 04:20:0013.3[facility] HermannHEMATOLOGY 2011-04-20 04:20:00 Test Item Value Reference Range Interpretation Comments MCH (test code = MCH) 29.3 pg 27.0-31.0 N [facility] QeyvihuMFVOHNIDBD1767-08-26 04:20:0033.9[facility]annHEMATOLOGY 2011-04-20 04:20:0014.0[facility] QznkhmaSAPOBLWIPE5757-05-15 04:20:0039.3[facility] YqlxoswOIBGPVYITY4982-13-30 04:20:0086.5[facility] FflevscUPTZHWRZEX1064-37-27 04:20:008.6[facility] FznlxruQTLIOKYJHJ4498-97-23 04:20:000.1[facility] JZGBUPZMOZ3936-21-69 04:20:000.1[facility] ZoaeltiYTQNMWRDFG7237-79-65 04:20:000.9 [facility] ZqgblguSCQURWKSGT2337-53-50 04:20:0019.9[facility]annHEMATOLOGY 2011-04-20 04:20:005.4[facility] ExpxyymZZLWPEOEIR8193-06-84 04:20:0073.1[facility] KwjfduvGFIEWWBWLY7405-49-61 04:20:001.7[facility] BjvnmunUUNAGJBJJV2656-70-23 04:20:000.5[facility] EziyckaQEPXXAQXYJ2685-66-18 04:20:000.7[facility] [place] BLFVQTWMKO6030-51-33 04:20:006.3[facility] PwkisrjFNXRZHKHGP4844-15-59 02:29:00 Negative *NA*(04/19/2011 20:29:00)[facility] IbzlfphAJNNDPSLQB8338-18-02 02:29:00 Negative *NA*(04/19/2011 20:29:00)[facility] HmnxrmpGFXHWNGOWJ6956-83-12 02:29:00 Negative (04/19/2011 20:29:00)[facility] WfoznkuAEELDKFCTR1125-35-71 02:29:00 Negative (04/19/2011 20:29:00)[facility] PetqnznHUOZQHOOMW9136-40-39 02:29:00 Test Item Value Reference Range Interpretation Comments UA pH (test code = UA pH) 6.0 1 5.0-8.0 N [facility] TosanerBGRNXPVDVM4070-26-25 02:29:00>=1000 mg/dL *ABN*(04/19/2011 20:29:00)[facility] MheqqwrKLMSTUFWZK1195-40-56 02:29:00Performed (04/19/2011 20:29:00)[facility] RowvjwdAHDHLZLZHI5484-15-38 02:29:00Negative (04/19/2011 20:29:00)[facility] ZxhlspyOCFOPAJIRF0375-90-08 02:29:000.2[facility] LJUWNFZPYF9738-37-53 02:29:00Negative (04/19/2011 20:29:00)[facility] LFUVBPMJKB0004-06-74 02:29:00Occasional /HPF (04/19/2011 20:29:00)[facility] ZmezponBBDIRGJPIQ8078-07-72 02:29:00Occasional /LPF (04/19/2011 20:29:00) [facility] DvzbdxhKKFDNCUSGL5892-02-21 02:29:003-5 /HPF (04/19/2011 20:29:00) [facility] YqqcemiJETUINJQLS9593-41-43 02:29:000-2 /HPF (04/19/2011 20:29:00) [facility] XjyyammMYIDTSNUSR5930-70-66 02:29:00Clear (04/19/2011 20:29:00)[facility] TonfbbjLVSJQAGKZY5975-72-33 02:29:00Yellow *NA*(04/19/2011 20:29:00)[facility] HermannBEDSIDE GLUCOSE IIUAVGN3174-12-68 05:47:11792Mrrntizs HermannCHEMISTRY 2011-03-26 02:45:00<3[facility] EdmviggWICLPROZV8283-25-92 02:45:009.2[facility] DrxnrtyRBVSIQVKB7395-45-61 02:45:0014.0[facility] JwpkimqOYBHQSQTR9111-51-39 02:45:0025[facility] MddqriqICHEACMOD7879-02-94 02:45:0097[facility] [place] CWZBUBXWI2220-43-13 02:45:004.0[facility] BdssnhxEWBAQIJQG7569-75-62 02:45:000.7 [facility] OhuxrpcYPAMPTTUY2762-27-29 02:45:49045Xnpedukf HermannCHEMISTRY 2011-03-26 02:45:000.5[facility] CexrlvnQFCZVAHTT9887-13-60 02:45:0069[facility] VqsconqJDYZIWYLE8408-10-37 02:45:0014[facility] PmpiczpPPQQNGZXL2520-76-40 02:45:003.9[facility] HkeiggmTBMUPUIZB8379-22-71 02:45:007.8[facility] NNTCULLTF4413-68-96 02:45:0019[facility] YsezqjoYSOHWEAZG8457-04-23 02:45:001.0 [facility] XsywekfMLJCVNKXI3208-68-08 02:45:003.9[facility] HermannCHEMISTRY 2011-03-26 02:45:0013[facility] RrbozlyOJSKAAIJP8867-49-38 02:45:46791Uojwkzgc UhmnahkDWSUKIESE0521-45-84 02:45:81675Kbkestax EcbkuunYEEVOMMGUC0400-20-83 02:45:0012.7[facility] QxzzwwkQQXAFAYJQL8419-19-87 02:45:0014.0[facility] KTSFVBWZRQ4638-23-84 02:45:0036.9[facility] DnlomwvHZDLXJCKYG8716-40-53 02:45:00 85.5[facility] JmjugsyORPSCIQULI2646-82-85 02:45:00 Test Item Value Reference Range Interpretation Comments MCH (test code = MCH) 29.5 pg 27.0-31.0 N [facility] ElugrsbYGZQAERRFN5844-43-54 02:45:0034.5[facility] HermannHEMATOLOGY 2011-03-26 02:45:23024Rmkeuqay CxylkbgQJAFYCJVGB8629-36-70 02:45:008.2[facility] LocqunyXRHFMCPZQZ2739-53-30 02:45:006.9[facility] BpsazqeULLGVEWHWH8247-10-45 02:45:004.32[facility] NqjjdtzJPCHHSRFRK4153-69-20 02:45:000.5[facility] UDLUCVUIHM2847-93-75 02:45:004.6[facility] DzlrseaTFHTEQGTZG0125-73-43 02:45:001.9 [facility] XrjrbmcDYRQROWBXQ7457-83-21 02:45:000.3[facility] HermannHEMATOLOGY 2011-03-26 02:45:000.1[facility] BtoaiepYUZQDMNACK7548-59-55 02:45:000.0[facility] KcwiqyvVBLRMNPLUV3479-38-45 02:45:0027.2[facility] NfmdkwnOSADBQFGRA3463-33-35 02:45:0066.3[facility] CrptimxZIJWOEMOTU8552-98-98 02:45:004.8[facility] IIHHKVTOJY7680-89-89 02:45:001.2[facility] ToilhnzXNHEHAJRKM9797-43-26 02:00:00 Occasional /HPF (03/25/2011 20:00:00)[facility] YgaslrmBEZGJQNGXB2629-51-22 02:00:00Occasional /HPF *ABN*(03/25/2011 20:00:00)[facility]annURINALYSIS 2011-03-26 02:00:00Rare /LPF (03/25/2011 20:00:00)[facility]annURINALYSIS 2011-03-26 02:00:000-2 /HPF (03/25/2011 20:00:00)[facility]annURINALYSIS 2011-03-26 02:00:000-2 /HPF (03/25/2011 20:00:00)[facility]UR[facility]ALYSIS 2011-03-26 02:00:00Negative (03/25/2011 20:00:00)[facility]annURINALYSIS 2011-03-26 02:00:00Performed (03/25/2011 20:00:00)[facility]annURINALYSIS 2011-03-26 02:00:00Negative (03/25/2011 20:00:00)[facility]annURINALYSIS 2011-03-26 02:00:00Negative (03/25/2011 20:00:00)[facility]annURINALYSIS 2011-03-26 02:00:000.2[facility] OdumipqWOJSEFSGAG8006-52-41 02:00:00Yellow *NA*(03/25/2011 20:00:00)[facility] GuapogtTKKKHMCCJC5587-43-24 02:00:00Clear (03/25/2011 20:00:00)[facility] KkhjttuTBIRVQTGQN6386-27-94 02:00:00Negative *NA*(03/25/2011 20:00:00)[facility] QteuzykWNUEYQEKNB3845-05-13 02:00:00>=1000 mg/dL *ABN*(03/25/2011 20:00:00)[facility] FahuwmhLJIVYMORTQ2573-32-90 02:00:00 Negative *NA*(03/25/2011 20:00:00)[facility] PpavaawLIGGIGYZWU8329-39-29 02:00:00 Test Item Value Reference Range Interpretation Comments UA pH (test code = UA pH) 6.0 1 5.0-8.[address] [facility] WlgxntlIHTFMZMKKR1818-95-11 02:00:00Negative (03/25/2011 20:00:00) [facility] HermannBEDSIDE GLUCOSE LQRWBZI8958-75-23 16:26:26210.0[facility] HXMUNBKIO4823-18-02 15:30:00<0.6[facility] KfkuqgmDMPNQIFOE3016-37-57 15:30:00 <0.5[facility] YuvjqbmNUWDLMLTQ1642-85-87 15:30:0077.0[facility] HermannCHEMISTRY 2011-02-11 15:30:0077.0[facility] VrricrrZVFWXXEBX3292-94-97 15:30:00<0.[address] [facility] HermannBEDSIDE GLUCOSE DRSXORF1279-95-32 12:00:01819.0[facility] KIJVYJWCV3001-98-60 09:29:001.5[facility] ZthjqlmNWWFKSENI3933-99-75 09:29:11374.0 [facility] AmitvbiJRKBSROVG1721-22-48 09:29:0011.0[facility] HermannCHEMISTRY 2011-02-11 09:29:007.8[facility] KjfdawrHEYAIDHCR6018-48-96 09:29:0013.7[facility] QeputcuNWRHTLXTG3769-72-74 09:29:000.6[facility] XlfqxnoHSWDJGWNM5306-90-08 09:29:76416.0[facility] PtossziLUYSEBWYR4577-52-17 09:29:003.7[facility] VNOJNHRPP5763-03-87 09:29:97772.0[facility] RkalqirFAJDDGMMI1710-16-77 09:29:00 24.0[facility] LiztkefGSSIYBGLI0618-23-44 09:29:00<0.02[facility] ONMHMOZZF6402-88-65 09:29:0071.0[facility] MnvcwdrBSOTGNXQU5285-53-[address] [facility] ChrbpgnGOREARSXNE3579-32-60 09:29:007.8[facility]annHEMATOLOGY 2011-02-11 09:29:0014.1[facility] SoknkveAVFRFMDUMH4730-72-99 09:29:006.8[facility] MajputyUQQZLEYACL2262-07-09 09:29:0011.8[facility] IwyztwuJBWOTSKVAN7369-90-91 09:29:004.11[facility] LeiaephUYWQCGGHBW5783-15-86 09:29:0035.3[facility] NAGCXUPKWD6419-34-35 09:29:00 Test Item Value Reference Range Interpretation Comments MCH (test code = MCH) 28.7 pg 27.0-31.0 N [facility] RgvpjbdMVLZRYGZET1802-12-04 09:29:0085.7[facility] HermannHEMATOLOGY 2011-02-11 09:29:33373.0[facility] QwfucuyPJURBICIYI4590-74-45 09:29:0033.5 [facility] PlokapxFSPHXZYPWZ7283-88-06 09:29:0026.3[facility] HermannHEMATOLOGY 2011-02-11 09:29:0065.8[facility] OckcpedPZKAVJGGXG3047-50-80 09:29:006.1[facility] UqbybelOPZXLQRGDC4948-87-18 09:29:001.2[facility] YmszxfxAHPTPKAGMD2710-53-52 09:29:000.6[facility] UnfnfxvHALHQLKBLX2598-60-65 09:29:004.5[facility] SDFHKMYDNC8169-07-34 09:29:001.8[facility] YlgjxboACSLXLAHNA1948-97-76 09:29:000.4 [facility] XtmumylLYDLFATDXF8700-81-13 09:29:000.0[facility] HermannHEMATOLOGY 2011-02-11 09:29:000.1[facility] HermannBEDSIDE GLUCOSE DFLGCGU6808-31-20 05:34:00 151.0[facility] KepokxwVJHAAHQYEV2536-97-65 03:26:00>=1000 mg/dL *ABN*(02/10/2011 22:26:00) ??[facility] MqjjizhIMVQXCPZEC1059-85-48 03:26:00 Negative mg/dL *NA*(02/10/2011 22:26:00) [facility]USYMAZGB5449-64-71 03:26:00 Test Item Value Reference Range Interpretation Comments UA pH (test code = UA pH) 6.5 1 5.0-8.0 [facility] CenterNphnhluNGPAHUSDKA9524-65-47 03:26:00Negative mg/dL (02/10/2011 22:26:00) [facility] CenterPdmeweiXPQNGIOPIL0405-21-37 03:26:00Negative (02/10/2011 22:26:00) [facility] CenterMixureaMXKHMFXQUR8486-75-94 03:26:00Negative (02/10/2011 22:26:00) [facility] CenterDozmtckDGXHHKPHAV8250-46-88 03:26:000.2[facility] TAHREPHGSS6502-88-35 03:26:00Negative (02/10/2011 22:26:00) [facility] SRBCTYKWXJ1543-20-27 03:26:00Negative *NA*(02/10/2011 22:26:00) [facility] CenterZhuhjhyHFBVQXKCDT8037-67-85 03:26:00Clear (02/10/2011 22:26:00) [facility] CenterYgcbfclNAIQPDYGAN8882-87-85 03:26:00 Test Item Value Reference Range Interpretation Comments UA Spec Grav (test code = UA Spec 1.01 1 N Grav) [facility] CenterKqdwodrTZQZZRGWAC2809-20-22 03:26:00Yellow *NA*(02/10/2011 22:26:00) [facility] CenterEvneecmYRSKZRZJUB4455-64-68 03:26:000-2 /HPF (02/10/2011 22:26:00) [facility] CenterIjqctcoOUKNHKGPNE0837-99-81 03:26:006-10 /HPF *ABN*(02/10/2011 22:26:00) [facility] CenterXzadsemFVIRNDCJEB2699-60-15 03:26:00Few /LPF (02/10/2011 22:26:00) [facility] CenterCvugkwlPRBBYYZHWD5033-19-48 03:26:00Few /HPF (02/10/2011 22:26:00) [facility] CenterAlwrbfmNBVGHVZRVS1075-98-52 03:26:00Occasional /HPF *ABN*(02/10/2011 22:26:00) ??[facility] VeysavbKJQPUYVPXT6965-72-64 03:26:00 Performed (02/10/2011 22:26:00) ??[facility] CpcpkuyZZZSDIEXW0665-12-75 03:03:00 Negative *NA*(02/10/2011 22:03:00) ??[facility] PjyehfyOHJWREBSO4618-26-54 03:03:00<0.5[facility] OmyqkbcZMIEVTJKW0598-80-57 03:03:00<0.02[facility] PmesejxGSCTNOPKZ6143-00-96 03:03:007.0[facility] AvmovgeAFQHXQQRI3580-41-75 03:03:004.0[facility] EcghpsmNUADKWRLO0781-50-54 03:03:007.5[facility] BSKVCOWKD0957-25-77 03:03:00 Test Item Value Reference Range Interpretation Comments A/G Ratio (test code = A/G Ratio) 1.1 1 0.7-1.6 N [facility] DtwimgqKHCRMJBNB1840-46-92 03:03:003.5[facility] HermannCHEMISTRY 2011-02-11 03:03:0014.0[facility] JsecsfqLMUEMJGPK5926-61-21 03:03:000.3[facility] CzhdeeeBHGANKPQA0211-98-08 03:03:0069.0[facility] HptrswwKGFAIRCNO7961-72-31 03:03:0022.0[facility] EchmgqgELMUMRCZA1904-58-80 03:03:00 Test Item Value Reference Range Interpretation Comments B/C Ratio (test code = B/C Ratio) 20.0 1 6-25 N [facility] XeuvdjlRDEGUTTFU3319-43-31 03:03:0096.0[facility] HermannCHEMISTRY 2011-02-11 03:03:008.7[facility] TsjiufaLGHDUUEXI9438-95-59 03:03:0017.3[facility] XeshjjiCVDUQRXRV8535-51-22 03:03:43019.0[facility] IgbhrvjQABAPRVPF6663-84-10 03:03:44562.0[facility] CqbcksnREONPDXNI3918-05-38 03:03:000.6[facility] SQOCUMHGM7852-61-67 03:03:0012.0[facility] BardsifGIXGVSYGG9019-59-47 03:03:004.3 [facility] VbvcxkiJHAGPAMCR5311-32-06 03:03:00Negative (02/10/2011 22:03:00) ?? [facility] YytfntuRHLYMYXMDV5832-83-78 03:03:003.9[facility]annHEMATOLOGY 2011-02-11 03:03:002.0[facility] WbsposvWCGGULRNOQ3918-67-92 03:03:000.5[facility] HwrbaysGRHJAKDSLA9854-20-53 03:03:000.4[facility] HhkjxwxCXNKMFYHOC5631-95-82 03:03:000.1[facility] SishrolIMFKYSIVRQ2782-05-64 03:03:0060.9[facility] XBDLOYVHZM8494-07-31 03:03:0031.7[facility] EfvrwcrWUOUQCLIOK1821-56-50 03:03:00 1.2[facility] TeqvbqiBPEHHFTVAF6686-16-51 03:03:005.7[facility]annHEMATOLOGY 2011-02-11 03:03:000.0[facility] NqcbstzYDONBCXGHD6060-10-12 03:03:00 Test Item Value Reference Range Interpretation Comments PT (test code = PT) 13.9 s 12.0-14.[address] [facility] HyjixgvFYRSWYEBUP5311-16-55 03:03:00 Test Item Value Reference Range Interpretation Comments PTT (test code = PTT) 28.4 s 22.9-35.[address] [facility] WpiwdfeVYQZSBYXPO4923-49-50 03:03:00 Test Item Value Reference Range Interpretation Comments INR (test code = INR) 1.07 1 0.85-1.[address] [facility] WppplhjSEUUPSPCRY1880-39-89 03:03:0033.7[facility]annHEMATOLOGY 2011-02-11 03:03:0014.3[facility] ZljbicxDONRPYXEVX2598-51-42 03:03:92757.0 [facility] BsblcjvMKFFWAHHZJ2417-95-23 03:03:007.9[facility]annHEMATOLOGY 2011-02-11 03:03:0085.9[facility] EnmptbkFPFKZAYXBP9711-73-22 03:03:004.43[facility] TcnydkuXAURYEIDVS0549-71-19 03:03:0038.1[facility] AtwpeupPVQJAGLORW9119-46-04 03:03:0012.8[facility] IibxbrgJYWHORBWTC8040-60-03 03:03:00 Test Item Value Reference Range Interpretation Comments MCH (test code = MCH) 28.9 pg 27.0-31.0 N [facility] RjlcicyXVSUEGROJR2230-32-02 03:03:006.5[facility] 2011-02-11 03:03:001.1[facility]annBEDSIDE GLUCOSE CZWSNOB5856-75-72 16:39:00 175.0[facility] GLU[facility]SE UZIJVLK9139-31-77 12:16:0088.0[facility] GLU[facility]SE NUPYGRU5250-79-03 11:27:0070.0[facility]annCHEMISTRY 2011-01-15 10:45:00<0.6[facility] MmmaouyUJGLYLPFY6839-21-95 10:45:00<0.5 [facility] BmslyvoAOBGGXEBU8860-15-85 10:45:00<0.02[facility]annCHEMISTRY 2011-01-15 10:45:0088.0[facility] ZniriqeAPEZCNWFV8076-30-97 10:45:000.6[facility] IhbbktfPWNVWNJIS1336-45-96 10:45:003.4[facility] UwzcvxtZJMHSVRIZ2203-37-96 10:45:48470.0[facility] LfnukriHEOKMGOFJ0914-31-20 10:45:0013.0[facility] Jona PFVSCIFKV0809-25-65 10:45:0025.0[facility] WqjgozzZHQWWBIPJ2938-29-84 10:45:008.0 [facility] DbrayfeMFDAQSZUB7849-42-90 10:45:0018.4[facility]annCHEMISTRY 2011-01-15 10:45:79567.0[facility] JstklmnNOGUFXBIY6457-98-69 10:45:44841.0 [facility] LwgreiqODMGUTNJI2059-77-05 10:45:0096.0[facility]annCHEMISTRY 2011-01-15 10:45:00 Test Item Value Reference Range Interpretation Comments CHD Risk (test code = CHD Risk) 3.8 1 3.90-5.80 L [facility] CqiwcrgQOJFLAKFK5537-39-93 10:45:0045.0[facility]annCHEMISTRY 2011-01-15 10:45:34322.0[facility] ElggfceRWHUTBMLB3196-58-09 10:45:72817.0 [facility] SqhgewmYWPSLSGWP8080-40-68 01:43:00<0.5[facility]annCHEMISTRY 2011-01-15 01:43:00<0.6[facility] KwqzcbhNORQWEEQJ8703-76-71 01:43:0083.0 [facility] MywgvzmWXLRDOBLC7866-00-14 01:43:00<0.02[facility]annCHEMISTRY 2011-01-14 21:36:00Negative (01/14/2011 16:36:00) ??[facility]annCHE[facility]STRY 2011-01-14 20:36:00<0.6[facility] OswxoskIIANOKEED6884-96-12 20:36:0013.0 [facility] RzvrtmpXRPNCHDEK7674-88-37 20:36:00<3.0[facility]annCHEMISTRY 2011-01-14 20:36:000.5[facility] XbprjtwZXLZISDGZ8065-70-45 20:36:003.8[facility] VrgekrsGGXEVCWQH1126-05-78 20:36:0017.0[facility] SylvffpGJYQDHLSV4853-34-54 20:36:0071.0[facility] PsgsxotXOQSAWGIN3357-15-37 20:36:003.8[facility] GXEVACYFM5763-85-33 20:36:81656.0[facility] LvzvwysIKDVKNBNB9980-38-19 20:36:00 22.0[facility] PjwxygtKFQHVAFQE4917-04-33 20:36:0014.8[facility]annCHEMISTRY 2011-01-14 20:36:008.6[facility] ErdplpeEPSRGYLHL7476-14-83 20:36:49667.0[facility] ScodctpZKTLQQNNO9998-40-70 20:36:003.6[facility] NoslyjiGKDBTZXIN1372-15-09 20:36:00 Test Item Value Reference Range Interpretation Comments A/G Ratio (test code = A/G Ratio) 1.1 1 0.7-1.6 N [facility] RfbohgoPBGEDSQGK2736-80-08 20:36:00 Test Item Value Reference Range Interpretation Comments B/C Ratio (test code = B/C Ratio) 11.0 1 6-25 N [facility] VtdnzysCWUEKXVGS3342-69-53 20:36:007.4[facility]annCHEMISTRY 2011-01-14 20:36:98889.0[facility] SipxigeCRLRXXKNH3430-92-06 20:36:009.0[facility] IspmfnlUQHMKVPXP6765-21-56 20:36:000.8[facility] EhzpnoxZITLDCUOD5845-42-25 20:36:00<0.02[facility] YecrodcEZNLIRYBU2520-06-00 20:36:00<0.5[facility] NqjnqleVUNEEPDQR0430-75-38 20:36:0078.0[facility] IgoaqgeVKWEQOWHSH1210-06-80 20:36:000.3[facility] BeauzylATEKGQECIJ1135-46-05 20:36:001.7[facility] OQYHDKJDLN3800-53-68 20:36:003.5[facility] NfnkhkhPOCLKOXPGW9977-06-63 20:36:000.9 [facility] ZutcimvSIVKCWQICI8394-02-57 20:36:000.9[facility]annHEMATOLOGY 2011-01-14 20:36:000.0[facility] KdoyoeaNKGOCNMSEB9667-34-27 20:36:000.1[facility] OsryzyzRKSSHPLOVM7277-86-34 20:36:0030.7[facility] QwsjlljGXQNSBLXDV6633-27-48 20:36:0063.0[facility] ZndtwrgIRGPKWJIBD9870-80-04 20:36:004.5[facility]ona RTJDTZPHIF8428-06-11 20:36:0014.6[facility] LbcbozxQTQEUCITFR3239-14-11 20:36:00 34.0[facility] YilofnnCTVLTMHFUM5310-55-53 20:36:008.0[facility]annHEMATOLOGY 2011-01-14 20:36:70152.0[facility] FxmivvxSMMZWWKRFL2023-41-60 20:36:00 Test Item Value Reference Range Interpretation Comments MCH (test code = MCH) 28.8 pg 27.0-31.0 N [facility]NyvdfubPATVQTKJJA3565-81-85 20:36:0013.2[facility]annHEMATOLOGY 2011-01-14 20:36:004.6[facility] QbjxatrYWHFNQLXPA6419-52-96 20:36:0038.9[facility] ZqqrktxXIPGMJXHQY0578-61-27 20:36:0084.6[facility] EmifuylBNHJBVRQTU4524-95-89 20:36:005.6[facility] VrfsdkkKKUYYSJFXB4927-18-60 20:36:00 Test Item Value Reference Range Interpretation Comments PT (test code = PT) 13.6 s 12.0-14.7 N [facility]VrkuvqnCZBZBSLYRE5480-76-02 20:36:00 Test Item Value Reference Range Interpretation Comments PTT (test code = PTT) 30.2 s 22.9-35.8 N [facility] HospitalYtoajbeVNUPVDPOTA4960-31-29 20:36:00 Test Item Value Reference Range Interpretation Comments INR (test code = INR) 1.04 1 0.85-1.17 N [facility] CenterMcqztdrURUMNYIQQI7870-88-00 20:36:001.5[facility]
[2020-05-10] MEDS ORDERED: IBUPROFEN 200 MG TAB PO ONE (14:00)
--- NOTE | 2020-05-10 14:11 | RAD REPORT ---
EXAM DESCRIPTION: RAD - Ankle Left 3 View -05/10/2020 1:56 pm CLINICAL HISTORY: Left ankle pain FINDINGS: No fracture or dislocation is seen. No bone or joint abnormality
--- NOTE | 2020-05-10 14:28 | RAD REPORT ---
EXAM DESCRIPTION: RAD - Foot Left 3 View - 05/10/2020 1:56 pm CLINICAL HISTORY: Left Foot pain FINDINGS: No fracture or dislocation is seen. No significant bone or joint abnormality seen
--- NOTE | 2020-05-10 15:39 | RAD REPORT ---
EXAM DESCRIPTION: USExtremity Venous Uni Ltd05/10/2020 2:21 pm CLINICAL HISTORY: left leg pain and swelling. COMPARISON: 2018 FINDINGS: Left common femoral, superficial femoral, popliteal and posterior tibial veins are compre ssible and demonstrate augmentation. Doppler demonstrates good flow. IMPRESSION: No evidence of deep venous thrombosis involving the left lower extremity.
--- NOTE | 2020-05-10 16:02 | ER ---
Nurse's Notes [facility] Name: Melissa De Oliveira Age: 54 yrs Sex: Female : 1965 Arrival Date: 05/10/2020 Time: 10:10 Bed 24 Private MD: Diagnosis: Pain in left foot Presentation: 05/10 11:25 Chief complaint: Patient states: "I was sick with COVID the first week of April and aa5 about a week ago my left foot started swelling,hurting, and it's red". Pt reports she was sent here by Li Chua NP. Pt denies SOB. Also c/o neck pain. Coronavirus screen: At this time, the client does not indicate any symptoms associated with coronavirus-19. Ebola Screen: Patient negative for fever greater than or equal to 101.5 degrees Fahrenheit, and additional compatible Ebola Virus Disease symptoms. Initial Sepsis Screen: Does the patient meet any 2 criteria? No. Patient's initial sepsis screen is negative. Does the patient have a suspected source of infection? No. Patient's initial sepsis screen is negative. Risk Assessment: Do you want to hurt yourself or someone else? Patient reports no desire to harm self or others. Onset of symptoms was April 2020. 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 - Social history:: Smoking status: Patient denies any tobacco usage or history of. Screenin:20 Abuse screen: Denies threats or abuse. Denies injuries from another. Nutritional iw screening: No deficits noted. Tuberculosis screening: No symptoms or risk factors identified. Fall Risk None identified. Assessment: 13:30 General: Appears in no apparent distress. Behavior is calm, cooperative. Pain: iw Complains of pain in right leg. Pain: Complains of pain in left leg. Neuro: Level of Consciousness is awake, alert, obeys commands, Oriented to person, place, time, situation. Cardiovascular: Patient's skin is warm and dry. Respiratory: Respiratory effort is even, unlabored, Respiratory pattern is regular. Derm: Skin is intact, is healthy with good turgor. 15:54 Reassessment: Patient appears in no apparent distress at this time. Patient and/or iw family updated on plan of care and expected duration. Pain level reassessed. Patient is alert, oriented x 3, equal unlabored respirations, skin warm/dry/pink. Patient states feeling better. Vital Signs: 11:28 BP 131 / 76; Pulse 88; Resp 18 S; Temp 97.2(TE); Pulse Ox 99% on R/A; Weight 47.17 kg aa5 (R); Height 5 ft. 4 in. (162.56 cm) (R); Pain 7/10; 15:54 BP 128 / 79; Pulse 84; Resp 16; Pulse Ox 98% on R/A; iw 11:28 Body Mass Index 17.85 (47.17 kg, 162.56 cm) aa5 ED Course: 10:10 Patient arrived in ED. as 11:25 Arm band placed on. aa5 11:27 Triage completed. aa5 13:11 Yogesh Mcclain PA is PHCP. cp 13:11 aCrina Adam MD is Attending Physician. cp 13:30 Patient has correct armband on for positive identification. iw 14:01 XRAY Foot LEFT 3 View In Process Unspecified. EDMS 14:01 XRAY Ankle LEFT 3 view In Process Unspecified. EDMS 14:15 US Extremity Venous Unilateral Ltd In Process Unspecified. EDMS 15:54 Jyothi Chandra, RN is Primary Nurse. iw 15:54 No provider procedures requiring assistance completed. Patient did not have IV access iw during this emergency room visit. 16:16 Ortho shoe applied to left foot. em1 Administered Medications: 13:47 Drug: Ibuprofen 600 mg Route: PO; iw Outcome: 16:01 Discharge ordered by cp 16:34 Discharged to home ambulatory. iw 16:34 Condition: good 16:34 Discharge instructions given to patient, Instructed on discharge instructions, follow up and referral plans. medication usage, Demonstrated understanding of instructions, follow-up care, medications, Prescriptions given X 1. 16:35 Patient left the ED. iw Signatures: Dispatcher [employer] Myriam Perkins as Jyothi Chandra RN RN iw Jaiden Hernandez em1 Julisa Rebollar, KIRIT RN aa5 Yogesh Mcclain, PA PA cp Corrections: (The following items were deleted from the chart) 11:29 11:28 Pulse 88bpm; Resp 18bpm; Spontaneous; Pulse Ox 99% RA; Temp 97.2F Temporal; 47.17 aa5 kg Reported; Height 5 ft. 4 in. Reported; BMI: 17.8; Pain 7/10; aa5 11:30 11:28 Pulse 88bpm; Resp 18bpm; Spontaneous; Pulse Ox 99% RA; Temp 97.2F Temporal; 47.17 aa5 kg Reported; Height 5 ft. 4 in. Reported; BMI: 17.8; Pain 7/10; aa5 19:03 13:10 Julisa Rebollar, RN is Primary Nurse. irina [email or web address] 19:03 15:54 Primary Nurse role handed off by Julisa Rebollar RN aa5
--- NOTE | 2020-05-10 16:02 | EDPHYS ---
Physician Documentation [facility] Name: Melissa De Oliveira Age: 54 yrs Sex: Female : 1965 Arrival Date: 05/10/2020 Time: 10:10 Bed 24 Private MD: ED Physician Carina Adam HPI: 05/10 13:30 This 54 yrs old Female presents to ER via Ambulatory with complaints of Feet cp Swelling. 13:30 The patient presents with pain, that is acute, swelling, tenderness. The complaints cp affect the dorsum of left foot. Context: resulted from an unknown cause, the patient can fully bear weight, the patient is able to ambulate, with mild difficulty, Problem is a result from a previous injury: No. Onset: The symptoms/episode began/occurred 1 week(s) ago. Associated signs and symptoms: Pertinent positives: warmth, Pertinent negatives calf tenderness, fever, weakness. Treatment prior to arrival includes: no previous treatment. Patient reports recently testing positive for COVID-19. 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 - Social history:: Smoking status: Patient denies any tobacco usage or history of. ROS: 13:35 Constitutional: Negative for body aches, chills, fever, poor PO intake. cp 13:35 Eyes: Negative for injury, pain, redness, and discharge. cp 13:35 Cardiovascular: Negative for chest pain. 13:35 Respiratory: Negative for cough, shortness of breath, wheezing. 13:35 Abdomen/GI: Negative for abdominal pain, nausea, vomiting, and diarrhea. 13:35 Back: Negative for pain at rest, pain with movement. 13:35 MS/extremity: Positive for pain, swelling, tenderness, warmth, of the dorsum of left foot, Negative for injury or acute deformity. 13:35 Neuro: Negative for altered mental status, headache, weakness. 13:35 All other systems are negative. Exam: 13:45 Constitutional: The patient appears in no acute distress, alert, awake, cp non-diaphoretic, non-toxic, well developed, well nourished. 13:45 Head/Face: Normocephalic, atraumatic. cp 13:45 Chest/axilla: Inspection: normal. cp 13:45 Cardiovascular: Rate: normal, Rhythm: regular. 13:45 Respiratory: the patient does not display signs of respiratory distress, Respirations: normal, no use of accessory muscles. 13:45 Musculoskeletal/extremity: Extremities: grossly normal except: noted in the dorsum of cp left foot: erythema, pain, swelling, tenderness, skin warm to touch, Perfusion: the extremity is normally perfused throughout. Vital Signs: 11:28 BP 131 / 76; Pulse 88; Resp 18 S; Temp 97.2(TE); Pulse Ox 99% on R/A; Weight 47.17 kg aa5 (R); Height 5 ft. 4 in. (162.56 cm) (R); Pain 7/10; 15:54 BP 128 / 79; Pulse 84; Resp 16; Pulse Ox 98% on R/A; iw 11:28 Body Mass Index 17.85 (47.17 kg, 162.56 cm) aa5 MDM: 13:14 Patient medically screened. cp 16:00 Differential diagnosis: closed fracture, contusion, DVT, cellulitis. cp 16:00 Data reviewed: vital signs, nurses notes, radiologic studies, plain films, ultrasound, cp and as a result, I will discharge patient. Counseling: I had a detailed discussion with the patient and/or guardian regarding: the historical points, exam findings, and any diagnostic results supporting the discharge/admit diagnosis, radiology results, the need for outpatient follow up, a family practitioner, to return to the emergency department if symptoms worsen or persist or if there are any questions or concerns that arise at home. Response to treatment: the patient's symptoms have markedly improved after treatment, and as a result, I will discharge patient. 05/10 13:25 Order name: US Extremity Venous Unilateral Ltd; Complete Time: 15:53 cp 05/10 15:53 Interpretation: Report reviewed. cp 05/10 13:25 Order name: XRAY Foot LEFT 3 View; Complete Time: 15:53 cp 05/10 13:25 Order name: XRAY Ankle LEFT 3 view; Complete Time: 15:53 cp 05/10 16:03 Order name: Misc. Order: post op shoe; Complete Time: 16:15 cp Administered Medications: 13:47 Drug: Ibuprofen 600 mg Route: PO; iw Disposition: 05/10/20 16:01 Discharged to Home. Impression: Pain in left foot. - Condition is Stable. - Discharge Instructions: Foot Pain. - Prescriptions for Ibuprofen 800 mg Oral Tablet - take 1 tablet by ORAL route every 8 hours As needed take with food; 30 tablet. Keflex 500 mg Oral Capsule - take 1 capsule by ORAL route every 8 hours for 10 days; 30 capsule. - Work release form, Medication Reconciliation Form, Thank You Letter, Antibiotic Education, Prescription Opioid Use form. - Follow up: Private Physician; When: 1 - 2 days; Reason: Recheck today's complaints. - Problem is new. - Symptoms have improved. Addendum: 05/13/2020 07:10 Co-signature as Attending Physician, Carina Adam MD. m a2 Signatures: Dispatcher [employer] Jyothi Henry RN RN iw Calderon, Audri, RN RN aa5 Yogesh Mcclain PA PA Carina Malloy MD MD ma2 Corrections: (The following items were deleted from the chart) 05/10 16:35 16:01 05/10/2020 16:01 Discharged to Home. Impression: Pain in left foot. Condition is iw Stable. Forms are Medication Reconciliation Form, Thank You Letter, Antibiotic Education, Prescription Opioid Use. Follow up: Private Physician; When: 1 - 2 days; Reason: Recheck today's complaints. Problem is new. Symptoms have improved. cp
[2020-05-10 16:56] VITALS: TEMP 97.2
[2020-05-10 16:57] VITALS: BP 128/79; O2SAT 98
== END 2020-05-10 16:35 | disposition home or self-care (01) ==
LOC: ER 10:07
DX: M79.672 Pain in left foot (principal); Z88.6 Allergy status to analgesic agent; Z88.8 Allergy status to other drugs, medicaments and biological substances; E11.9 Type 2 diabetes mellitus without complications; Z86.16 Personal history of COVID-19
CPT/HCPCS: 93971; 99284

== ENCOUNTER 2020-05-17 08:04 | Emergency (ER) | payer OTHER, SELFPAY ==
--- OUTSIDE RECORDS SUMMARY | 2020-05-17 08:07 | XMS REPORT | Clinical Summary ---
:1965 Author Organization [facility] Address [address] [place] [address] Care Team Providers Name Role Phone Denae [...] VACCINE (#1) 2019 Results Not on fileafter 05/17/2019
--- OUTSIDE RECORDS SUMMARY | 2020-05-17 08:16 | XMS REPORT | Continuity of Care Document ---
:1965 Author Organization [facility] Line Care Team Providers Name Role Phone [facility] [place] [employer] Unavailable Un available Problems Problem Status Onset Classification Date Comments Sourc e Date Reported Radiculopathy, 02/26/20 02/28/2017 [facility] cervical region 17 [facility]osp [facility] Hyperglycemia, 02/26/20 03/01/2017 [facility] unspecified 17 Hospital Fever, 02/26/20 03/01/2017 [facility] [facility] unspecified 17 Hospital Displaced 12/28/19 12/30/2016 [facility] [facility] unspecified 17 Hospital fracture of right lesser toe(s), initial encounter for closed fracture HURT TOES Active 12/28/[address] ABDOMINAL PAIN Active 02/07/20 [facility], [facility] [place] EGD Active 02/05/20 [facility] 12 BLOOD SUGAR Active 11/28/19 [place] PROBLEM [...] [address] [place] BLEEDING ABD PAIN Active 01/06/20 [facility] 10 EAR PAIN Active 10/10/19 [facility] [place] [facility] [place] UPPER ABDOMINAL Active 09/21/19 [place] PAIN 10 [place] ABD PAIN, HIGH Active 08/16/19 [facility] SUGAR 10 [place] Abdominal pain Active Problem 02/19/2012 [facility], [place] Cellulitis Active Problem 02/19/2012 [facility], [place] Chest pain Active Problem 02/19/2012 [facility], [place] Hyperglycemia Active Problem 02/19/2012 [facility], [place] UTI - Urinary Active Problem 02/19/2012 tract infection [facility], [place] Diabetes mellitus Active Problem 03/01/2017 [facility] [place] (disorder) [facility] Restless legs Active Problem 03/01/2017 [...] G.I. No Longer Cocktail = Active 2016 [place] antacid with Hospital simethicone 22.5 mL - lidocaine viscous 7.5 mL Zofran Notes: (Same Inactive as: Zofran) 2016 [place] MEDICATION Hospital WASTE Product Size: 4 mg Product Wasted: ___ mg Zofran Notes: (Same Inactive as: Zofran) 2016 [place] MEDICATION Hospital WASTE Product Size: 4 mg Product Wasted: ___ mg Morphine Notes: (Same Inactive as:MORPhine 2017 [place] Sulfate) Hospital Lidocaine Notes: Inactive Hydrochloride 10 Preservative 2016 [facility] MG/ML Injectable free. (Same Ho spital Solution as: Xylocaine MPF) Insulin regular 60 units) Inactive WASTE: F/P - 2017 [place] Black; E - Hospital Municipal Trash Bin Stable for 28 days at room temperature Expires in days from Date Sodium Chloride 2,000 mL, 1000 Inactive 0.9% (Bolus) IV ml/hr, Infuse 2016 [facility] Over: 2 hr, Hospital Route: IV, 2,000, Drug form: INJ, ONCE, Priority: STAT, Dosing Weight 49.545 kg, Start date: 02/25/17 20:22:00 [employer], Stop date: 02/25/17 20:22:00 [employer] ibuprofen 800 mg 800 mg = [...] Active 2016 [facility] Ketorolac 4 days No Longer MEDICATION Active 2016 [place] WASTE Hospital Product Size: 30 mg Product Wasted: ___ mg Ciprofloxacin 500 500 mg = 1 Active MH MG Oral Tablet tab, PO, Q12H, 2017 [facility] [Cipro] for UTI, X 3 Hospital day, # 6 tab, 0 Refill(s), Pharmacy: [facility]/pharmacy #[id number] Humalog 100 4 unit, SUB-Q, Active units/mL TID-Before 2017 [place] Meals, hold Hospital insulin injection if your blood sugar is less than 140 mg/dL., # 10 mL, 0 Refill(s), Pharmacy: [facility]/pharmacy #[id number] pantoprazole 40 40 mg = 1 tab, Active 01/26/ H [facility] Enteric Coated PO, Daily, # 2017 [facility] Tablet [Protonix] 30 tab, 0 Hosp ital Refill(s), Pharmacy: [facility]/pharmacy #[id number] Calcium Carbonate 500 mg = 1 Active 500 MG Chewable tab, PO, TID, 2017 [facility] Tablet # 6 tab, 0 Hospital Refill(s), Pharmacy: [facility]/pharmacy #[id number] Insulin Glargine 15 unit, Active 100 UNT/ML SUB-Q, Daily, 2016 [place] Injectable # 10 mL, 0 Hospital Solution [Lantus] Refill(s), Pharmacy: [facility]/pharmacy #[id number] Calcium Gluconate Notes: WASTE: Inactive F/P - Sink; E 2016 [place] - [facility] Hospital Trash Bin Calcium Carbonate Notes: (Same Inactive As: [facility]) 2017 [place] Calcium Hospital Carbonate 500 mg = 200 mg elemental calcium Dose = mg calcium carbonate ( mg elemental calcium) Insulin Glargine Notes: Same as No Longer 100 UNT/ML Lantus Active 2016 [place] Injectable Solostar PEN Hospital Solution [Lantus] Do not hold insulin without contacting prescriber "single patient use only" WASTE: F/P - Black; E - Municipal Trash Bin Stable for 28 days at room temperature. Expires in days from Date Requip Notes: (Same No Longer as: Requip) Active 2017 [place] [facility] Lyrica Notes: (Same No Longer as: Lyrica) Active 2017 [facility] Calcium Carbonate Notes: (Same Inactive As: Tums) 2017 [place] Calcium Hospital Carbonate 500 mg = 200 mg elemental calcium Dose = mg calcium carbonate ( mg elemental calcium) Protonix Notes: Tablet No Longer should not be Active 2017 [place] chewed or Hospital crushed. (Same as: Protonix) Magnesium Oxide Notes: (Same No Longer H as: Mag-Ox Active 2017 [place] 400) Magnesium Hospital oxide [id number] elemental magnesium Dose=____mg magnesium oxide (___mg elemental magnesium) Ketorolac 4 days No Longer MEDICATION Active 2017 [place] WASTE Hospital Product Size: 30 mg Product Wasted: ___ mg Docusate Notes: (Same No Longer as: Colace) Active 2016 [place] (Do Not Crush) [facility] Insulin Glargine 50 units, No Longer 100 UNT/ML SUB-Q, Daily, Active 2016 [place] Injectable 0 Refill(s) [facility] [...] 60 units) Inactive WASTE: F/P - 2017 [place] Black; E - Hospital Municipal Trash Bin Stable for 28 days at room temperature. Expires in days from Date Ceftriaxone Notes: (Same No Longer As: Rocephin). Active 2017 [place] Use with 100 Hospital mL NS and infuse over 30 min MEDICATION WASTE Product Size: 1000 mg Product Wasted: ___ mg Hydralazine Notes: (Same No Longer as: Active 2016 [place] Apresoline) [facility] Push over 5 minutes Glucagon 1 mg, Route: No Longer IM, Drug form: Active 2016 [place] PDR/INJ, PRN, Hospital Dosing Weight 51.449, kg, PRN Blood Glucose Results, Start date: 01/25/17 1:35:00 CDT, Duration: 30 day, Stop date: 02/24/17 0:34:00 [employer] Insulin Lispro 60 units) No Longer WASTE: F/P - Active 2016 [place] Black; E - Hospital Municipal Trash Bin Stable for 28 days at room temperature. Expires in days from Date Dextrose 50% 25 gm, 50 mL, No Longer Syringe Route: IVP, Active 2016 [place] Drug Form: Hospital INJ, Dosing Weight 51.449, kg, PRN, PRN Blood Glucose Results, Start date: 01/25/17 1:35:00 CDT, Duration: 30 day, Stop date: 02/24/17 0:34:00 [employer] Acetaminophen Notes: Do not No Longer exceed 4 Active 2017 [place] gm/day. (Same Hospital as: Tylenol) Acetaminophen 325 Notes: (Same Inactive MG / Hydrocodone as: [place] 2017 [facility] [facility] Bitartrate 5 MG 325/5) Do not H ospital Oral Tablet exceed 4gm/day of acetaminophen. Ondansetron Notes: (Same No Longer as: Zofran) Active 2017 [place] MEDICATION Hospital WASTE Product Size: 4 mg Product Wasted: ___ mg sodium chloride 1,000 mL, No Longer 0.9% 1000 ml INJ Rate: 75 Active 2017 [place] 1,000 mL ml/hr, Infuse Hospital over: 13.3 hr, Route: IV, Dosing Weight 51.449 kg, Total Volume: 1,000, Start date: 01/25/17 1:32:00 CDT, Stop date: 02/24/17 1:31:00 [employer] Saline Flush 0.9% Notes: (Same No Longer as: BD Active 2016 [place] Posiflush) Hospital Ketorolac 15 mg, Route: Inactive IV, ONCE, 2016 [place] Dosing Weight Hospital 52.273, kg, Start date: 01/25/17 0:00:00 CDT, Stop date: 01/25/17 0:00:00 CDT Famotidine 20 mg, Route: Inactive IVP, ONCE, 2016 [place] Dosing Weight Hospital 52.273, kg, Priority: STAT, [...] 4 mg, Route: Inactive IVP, Drug 2017 [place] form: INJ, Hospital ONCE, Dosing Weight 52.273, kg, Priority: STAT, Start date: 01/24/17 22:07:00 CDT, Stop date: 01/24/17 22:07:00 CDT Morphine Notes: (Same Inactive as:MORPhine 2017 [place] Sulfate) Hospital Acetaminophen 300 1 - 2 tab, PO, No Longer 12/27 MG / Codeine Q4H, PRN Pain, Active 2016 [facility] Phosphate 30 MG X 2 day, # 30 Ho spital Oral Tablet tab, 0 [Tylenol with Refill(s) Codeine #3] Acetaminophen 325 Notes: (Same Inactive MG / Hydrocodone as: [place] 2017 [facility] [facility] Bitartrate 5 MG 325/5) Do not H ospital Oral Tablet exceed 4gm/day [Holland 5/325] of acetaminophen. Sodium Chloride 500 mL, Rate: IV No Longer [facility] Sugar 0.9% (Bolus) IV 500 ml/hr, Active 2011 [facility] 500 mL Infuse over: 1 hr, [...] ketorolac 30 mg, Route: IVP No Longer [facility] Sug ar IVP, Drug Active 2011 [place] form: INJ, ONCE, Dosing Weight 50, kg, Priority: STAT, Start date: 11/28/11 21:51:00, Stop date: 11/28/11 21:51:00 ondansetron 4 mg, Route: IVP No Longer [facility] IVP, ONCE, Active 2011 [facility] Dosing Weight 50, kg, Priority: STAT, Start date: 11/28/11 21:51:00, Stop date: 11/28/11 21:51:00 Sodium Chloride 1,000 mL, IVPB No Longer [facility] S ug[place] 0.9% (Bolus) IV Rate: 1,000 Active 2011 [facility] 1,000 mL ml/hr, Infuse over: 1 hr, Route: IVPB, kg, Total Volume: 1,000, Bolus Dose, Priority: STAT, Start date: 11/28/11 21:51:00, Duration: 1 doses or times, Stop date: 11/28/11 22:50:00 Saline Flush 0.9% 5 ml, Route: IVP No Longer [facility] Sugar IVP, Drug Active 2011 [place] Form: INJ, kg, PRN, PRN Line Flush, Start date: 11/28/11 21:51:00, Duration: 30 day, Stop date: 12/28/11 21:50:00 [place] 5/325 oral 1-2 tab, PO, PO Active [...] Sugar Route: IVP, Active 2011 [facility] Drug form: INJ, ONCE, Priority: STAT, [...] Sugar IVP, Drug Active 2011 [facility] Form: INJ, PRN, PRN Line Flush, [...] regular 5 unit, 0.05 IVP No Longer [facility] Sugar mL, Route: Active 2011 [facility] IVP, Drug form: SOLN, ONCE, Priority: STAT, Start date: 05/23/11 1:10:00, Stop date: 05/23/11 1:10:00 Visipaque 32,000 mg, 100 IV Active [facility] S[place] r mL, Route: IV, 2011 [facility] Drug form: INJ, ONCE, Start date: 05/22/11 23:47:00, Stop date: 05/22/11 23:47:00 Insulin regular 5 unit, 0.05 SUB-Q No Longer [facility] [place] mL, Route: Active 2011 [facility] SUB-Q, Drug form: SOLN, ONCE, Priority: STAT, Start date: 05/22/11 23:36:00, Stop date: 05/22/11 23:36:00 morphine Sulfate 2 mg, 0.4 mL, IVP No Longer [facility] [place] Route: IVP, Active 2011 [facility] Drug form: INJ, ONCE, Priority: STAT, Start date: 05/22/11 23:04:00, Stop date: 05/22/11 23:04:00 ondansetron 4 mg, 2 mL, IVP No Longer [facility] Sug ar Route: IVP, Active 2011 [facility] Drug form: INJ, ONCE, Priority: STAT, Start date: 05/22/11 23:04:00, Stop date: 05/22/11 23:04:00 Sodium Chloride 500 mL, Rate: IV No Longer [facility] Sugar 0.9% (Bolus) IV 1,000 ml/hr, Active 2011 [place] [facility] 500 mL Infuse over: 0.5 hr, Route: IV, Total Volume: 500, Bolus dose, Priority: STAT, Start date: 05/22/11 23:04:00, Duration: 1 doses or times, Stop date: 05/22/11 23:33:00 Saline Flush 0.9% 5 ml, Route: IVP No Longer [facility] Sugar IVP, Drug Active 2011 [facility] Form: INJ, PRN, PRN Line Flush, Start date: 05/22/11 23:04:00, Duration: 24 hr, Stop date: 05/23/11 23:03:00 Pyridium 200 mg 200 mg, 1 tab, PO Active [facility] Sugar oral tablet PO, TID, 9 2011 [facility] tab, Substitution Allowed Cipro 500 mg oral 500 mg, 1 tab, PO Active [facility] Sugar tablet PO, Q12H, 28 2011 [facility] tab, Substitution Allowed, TAB Pyridium 200 mg, 2 tab, PO No Longer [facility] Sug ar Route: PO, Active 2011 [facility] Drug form: TAB, ONCE, Priority: STAT, Start date: 05/07/11 20:03:00, Stop date: 05/07/11 20:03:00 Cipro 500 mg, 2 tab, PO No Longer [facility] [place] Route: PO, Active 2011 [facility] Drug form: TAB, ONCE, Priority: STAT, Start date: 05/07/11 20:03:00, Stop date: 05/07/11 20:03:00 Cipro 500 mg oral 500 mg, 1 tab, PO Active [facility] Sugar tablet PO, BID, 20 2011 [facility] tab, Substitution Allowed Zofran ODT 4 mg 4 mg, 1 tab, PO Active [facility] oral tablet, PO, TID, PRN, 2011 disintegrating 10 tab, Nausea and Vomiting, Substitution Allowed [place] 10/325 oral 1 tab, PO, PO Active [facility] Sugar tablet Q4-6H, PRN, 24 2011 [facility] tab, as needed for pain, Substitution Allowed, Maintenance hydromorphone 1 mg, 0.5 mL, IVP No Longer [place] [facility] Route: IVP, Active 2011 [facility] Drug form: INJ, ONCE, Priority: STAT, Start date: 04/19/11 23:38:00, Stop date: 04/19/11 23:38:00 Insulin regular 10 unit, 0.1 IVP No Longer [facility] mL, Route: Active 2011 [facility] IVP, Drug form: SOLN, ONCE, Priority: [...] magnesium citrate 150 ml, PO, PO Active [place] 03/26[facility] Sugar 8.85% oral liquid ONCE, 300 ml, 2010 [place] Substitution Allowed, Maintenance, LIQ MiraLax oral 17 gm, PO, PO Active [place] 03/26[facility] Sugar powder for Daily, 255 gm, 2010 [place] reconstitution Substitution Allowed, PDR/REC Phenergan 25 mg 25 mg, 1 tab, PO Active [place] 03/26[facility] Sugar oral tablet PO, Q6H, PRN, 2010 [place] 15 tab, Nausea, Substitution Allowed Vicodin 5/500 1 tab, PO, PO Active [place] 03/26[facility] Suga r oral tablet Q4-6H, PRN, 2010 tab, for Pain, Substitution Allowed, Maintenance Sodium Chloride 1,000 mL, IV No Longer [place] S ugar 0.9% (Bolus) IV Rate: 1,000 Active 2010 1,000 mL ml/hr, Infuse over: 1 hr, Route: IV, Total Volume: 1,000, Bolus Dose, Priority: STAT, Start date: 03/25/11 21:24:00, Duration: 1 doses or times, Stop date: 03/25/11 22:23:00 Insulin regular 10 unit, 0.1 IVP No Longer [place] 03/26/ H [facility] mL, Route: Active 2010 IVP, Drug form: SOLN, ONCE, Priority: STAT, Start date: 03/25/11 21:16:00, Stop date: 03/25/11 21:16:00 Omnipaque 300 30,000 mg, 100 IV Active [place] Sugar mL, Route: IV, 2010 Drug form: SOLN, ONCE, Start date: 03/25/11 21:15:00, Stop date: 03/25/11 21:15:00 Saline Flush 0.9% 5 ml, Route: IVP No Longer [place] Sugar IVP, Drug Active 2010 Form: INJ, PRN, PRN Line Flush, Start date: 03/25/11 20:19:00, Duration: 30 day, Stop date: 04/24/11 20:18:00 ondansetron 4 mg, 2 mL, IVP No Longer [place] Sug ar Route: IVP, Active 2010 Drug form: INJ, ONCE, Priority: STAT, Start date: 03/25/11 20:19:00, Stop date: 03/25/11 20:19:00 morphine Sulfate 4 mg, 0.8 mL, IVP No Longer [place] Route: IVP, Active 2010 Drug form: [...] r Route: PO, Active 2010 [facility] Drug form: TAB, [id number], Start date: 02/11/11 11:00:00, Duration: 30 day, [...] Sugar IVP, Drug Active 2010 [facility] Form: INJ, Q12H, Start date: 02/11/11 [...] Route: PO, Active 2010 Drug form: TAB, [id number], Start date: 02/11/11 3:00:00, Duration: 30 day, [...] - mL, Route: Active 2010 [facility] Low SUB-Q, Drug form: SOLN, Sliding Scale, PRN Blood Glucose Results, Start date: 02/11/11 2:05:00, Duration: 30 day, Stop date: 03/13/11 1:04:00 glucagon 1 mg, Route: IM No Longer [place] [facility] IM, Drug form: Active 2010 [facility] PDR/INJ, PRN, PRN Blood Glucose Results, Start date: 02/11/11 2:05:00, Duration: 30 day, Stop date: 03/13/11 1:04:00 Dextrose 50% 25 gm, 50 ml, IVP No Longer [place] [facility] Syringe Route: IVP, 2010 [facility] Drug Form: INJ, PRN, PRN Blood Glucose Results, Start date: 02/11/11 2:05:00, Duration: 30 day, Stop date: 03/13/11 1:04:00 Saline Flush 0.9% 5 ml, Route: IVP No Longer [place] [facility] IVP, Drug Active 2010 [facility] Form: INJ, PRN, PRN Line Flush, Start date: 02/11/11 2:05:00, Duration: 30 day, Stop date: 03/13/11 1:04:00 nitroglycerin SL 0.4 mg, 1 tab, SL No Longer [place] [facility] Tab Route: SL, Active 2010 [facility] Drug form: TAB, Q5Min, PRN Chest Pain, Start date: 02/11/11 2:05:00, Duration: 3 doses or times, Stop date: Limited # of times morphine Sulfate 2 mg, 0.4 mL, IVP No Longer [place] [facility] Route: IVP, Active 2010 [facility] Drug form: INJ, Q15Min, PRN Chest Pain, Start date: 02/11/11 2:05:00, Duration: 2 doses or times, Stop date: Limited # of times acetaminophen 650 mg, 2 tab, PO No Longer [facility] Route: PO, Active 2010 [facility] Drug form: TAB, Q4H, PRN Headache, Start date: 02/11/11 2:05:00, Duration: 30 day, Stop date: 03/13/11 2:04:00 diphenhydrAMINE 25 mg, 1 tab, PO No Longer [place] [facility] Route: PO, Active 2010 [facility] Drug form: TAB, Bedtime, PRN Insomnia, [...] gar Route: PO, Active 2010 [facility] Drug form: TAB, Q8H, PRN Nausea & Vomiting, Start date: 02/11/11 2:05:00, Duration: 30 day, Stop date: 03/13/11 2:04:00 temazepam 15 mg, 1 cap, PO No Longer [place] [facility] Route: PO, 2010 [facility] Drug form: CAP, Bedtime, PRN Insomnia, Start date: 02/11/11 2:05:00, Duration: 30 day, Stop date: 03/13/11 2:04:00 aspirin 325 mg 325 mg, 1 tab, PO No Longer [place] [facility] tablet Route: PO, Active 2010 [facility] Drug form: TAB, ONCE, Start date: 02/11/11 2:05:00, Stop date: 02/11/11 2:05:00 morphine Sulfate 2 mg, 0.4 mL, IVP No Longer [place] 02/11 [place] Route: IVP, Active 2010 [facility] Drug form: INJ, ONCE, Priority: STAT, Start date: 02/11/11 0:37:00, Stop date: 02/11/11 0:37:00 Visipaque 48,000 mg, 150 IV No Longer [place] mL, Route: IV, Active 2010 [facility] Drug form: INJ, ONCE, Start date: [...] ointment Route: TOP, Active 2010 [facility] Drug Form: OINT, ONCE, STAT, Start date: 02/10/11 21:47:00, Stop date: 02/10/11 21:47:00 nitroglycerin 0.4 mg, 1 tab, SL No Longer [place] [facility] Route: SL, Active 2010 [facility] Drug form: TAB, Q5Min, PRN Chest Pain, (Hold if SBP < = 90 mmHg or if < = 100mmHg with symptomatic dizziness), Start date: 02/10/11 21:47:00, Duration: 3 doses or times, Stop date: Limited # of times morphine Sulfate 2 mg, Route: IVP No Longer [place] [facility] IVP, ONCE, Active 2010 [facility] Priority: STAT, Start date: 02/10/11 21:47:00, Stop date: 02/10/11 21:47:00 Saline Flush 0.9% 5 ml, Route: IVP No Longer [place] 02/11 [place] IVP, PRN, PRN Active 2010 [facility] Line Flush, Start date: 02/10/11 21:47:00, Duration: 30 day, Stop date: 03/12/11 20:46:00 aspirin 325 mg 325 mg, 1 tab, PO No Longer [place] [facility] tablet, enteric Route: PO, Active 2010 [facility] coated Drug form: ECTAB, Daily, Start date: 01/16/11 9:00:00, Duration: 30 day, Stop date: 02/14/11 9:00:00 Requip 1 mg, 1 tab, PO No Longer [place] [facility] Route: PO, Active 2010 [facility] Drug form: TAB, Bedtime, Start date: 01/15/11 21:00:00, Duration: 30 day, Stop date: 02/13/11 21:00:00 Nitrostat 0.4 mg 1 tab, SL, SL Active [place] [facility] sublingual tablet Q5Min, PRN, [address] [place] tab, Chest Pain, Substitution Allowed metoprolol 25 mg 12.5 mg, PO, PO Active [facility] Sugar oral tablet Q12H, 30 tab, 2010 Substitution Allowed, TAB aspirin 325 mg 9,750 mg, 30 PO Active [facility] S ugar tablet, enteric tab, PO, 2010 coated Daily, 30 tab, Substitution Allowed, ECTAB metoprolol 12.5 mg, 0.5 PO No Longer [place] [facility] ar tab, Route: Active 2010 PO, Drug form: TAB, Q12H, Priority: NOW, Start date: 01/15/11 10:36:00, Duration: 30 day, Stop date: 02/14/11 9:00:00 Fioricet oral 1 tab, PO, PO Active [facility] [facility] tablet Q4H, PRN, 2010 tab, Headache, Substitution Allowed, Maintenance, TAB Fioricet 1 tab, Route: PO No Longer [facility] [place] PO, Drug Form: Active 2010 TAB, Q4H, PRN Headache, Start date: 01/15/11 9:15:00, Duration: 30 day, Stop date: 02/14/11 9:14:00 aspirin 81 mg 81 mg, 1 tab, PO No Longer [facility] Sugar tablet, enteric Route: PO, Active [...] Sugar mL, Route: Active 2010 [facility] SUB-Q, Drug form: INJ, Bedtime, Start date: 01/14/11 21:00:00, Duration: 30 day, Stop date: 02/12/11 21:00:00 Lantus 70 unit, SUB-Q No Longer [place] [facility] Route: SUB-Q, Active 2010 [facility] Bedtime, Start date: 01/14/11 21:00:00, Duration: 30 day, Stop date: 02/12/11 21:00:00 glucagon 1 mg, Route: IM No Longer [place] [facility] IM, Drug form: Active 2010 [facility] PDR/INJ, PRN, PRN Blood Glucose Results, Start date: 01/14/11 19:22:00, Duration: 30 day, Stop date: 02/13/11 19:21:00 Insulin (Novolog) 6 unit, 0.06 SUB-Q No Longer [place] [facility] Sliding Scale - mL, Route: Active 2010 [facility] Very High SUB-Q, Drug form: SOLN, [...] Sugar IVP, Drug Active 2010 [facility] Form: INJ, PRN, PRN Line Flush, [...] PO, Drug Form: Active 2010 [facility] SUSP, ONCE, Routine, Start date: 01/14/11 [...] 0.9% 5 ml, Route: IVP No Longer [facility] Sugar IVP, Drug Active 2010 Form: INJ, PRN, PRN Line Flush, Start date: 01/14/11 15:20:00, Duration: 30 day, Stop date: 02/13/11 15:19:00 ibuprofen 400 mg 1 tab, PO, PO Active [facility] S ugar oral tablet Q4H, PRN, 2010 tab, Pain, Substitution Allowed acetaminophen-hyd 1 tab, PO, PO Active [facility] Sugar rocodone 500 mg-5 Q4-6H, PRN, [...] type Reported Ritalin Assertion Drug Active allergy [facility] [facility] Immunizations No Data Provided for This Section Results Order Name Results Value Reference Date Interpretation Comments Nely rce Range BACTERIAL Strep Negative Negative 02/26 [place] - SEROLOGY pneumoniae (02/25/17 9:02 PM) /2016 Hospital Ag BACTERIAL Source Strep Cerebral 02/26 [facility] - SEROLOGY Spinal /2016 Hospital Fluid BODY Tube Num CSF 1 02/26 [place] FLUIDS /2016 Hospital BODY Clarity CSF Clear Clear 02/26 [facility] [place] FLUIDS (02/25/17 9:02 PM) /2016 Hospi roly BODY Color CSF Colorless Colorless 02/26 [facility] [place] FLUIDS (02/25/17 9:02 PM) /2016 [facility]pi [facility] BODY Supernat CSF Colorless Colorless 02/26 [facility] FLUIDS (02/25/17 9:02 PM) /2016 Hospi roly BODY WBC CSF 2 0 - 53 02/26 [facility] [place] FLUIDS /2016 Hospital BODY RBC CSF 1 0 - 03 02/26 [facility] [place] FLUIDS /2016 Hospital BODY RBC CSF 1 0 - 03 02/26 [place] FLUIDS /2016 Hospital BODY WBC CSF 2 0 - 53 02/26 [place] FLUIDS /2016 Hospital BODY Supernat CSF Colorless Colorless 02/26 [facility] FLUIDS (02/25/17 9:02 PM) /2016 Hospi roly BODY Clarity CSF Clear Clear 02/26 [place] FLUIDS (02/25/17 9:02 PM) /2016 Hospi roly BODY Tube Num CSF 4 02/26 [place] FLUIDS /2016 Hospital BODY Color CSF Colorless Colorless 02/26 [place] FLUIDS (02/25/17 9:02 PM) /2016 Hospi roly BODY Glucose CSF 219 45 - 80 02/26 Result [place] FLUIDS Comment: Hospital Critical Result(s) called to Charlotte Hodge at _02/25/2017 21:45 bybz_. Read back OK.

NOTE: RESULTS autoverfied BODY Protein CSF 55 15 - 45 02/26 [place] FLUIDS /2016 Hospital FUNGAL - Crypto Ag Negative Negative 02/26 [place] SEROLOGY CSF (02/25/17 9:02 PM) /2016 Hosp ital IMMUNOLOGY VDRL Scr CSF Non Reactive Non 02/26 [place] (02/25/17 9:02 PM) Reactive /2016 Hosp ital [...] curve analysis. MOLECULAR Source HSV Cerebral 02/26 [place] DIAGNOSTIC Spinal /2016 Hospital Fluid VIRAL - [facility]ovirus Negative [facility] CSF (02/25/17 9:02 PM) Hosp ital CHEM PANEL A/G Ratio 0.9 0.7 - 1.6 02/26 [facility] CHEM PANEL B/C Ratio 23 6 - 25 02/26 [facility] CHEM PANEL Globulin 4.3 2.7 - 4.2 02/26 [facility] CHEM PANEL AGAP 11.3 10.0 - 02/26 [place] 20.0 Hospital CHEM PANEL eGFR 101 02/26 [facility] Comment: The Hospital eGFR is calculated using [...] PANEL BUN 16 7 - 22 02/26 [facility] CHEM PANEL ALANINE 17 0 - 65 02/26 [facility] [facility] CHEM PANEL Total 8.2 6.4 - 8.4 02/26 [facility] CHEM PANEL Potassium 4.3 3.5 - 5.1 02/26 [facility]2016 [facility] CHEM PANEL Sodium Lvl 130 135 - 145 02/26 [facility] CHEM PANEL Creatinine 0.70 0.50 - 02/26 [place] Lvl 1.40 /2016 [facility] CHEM PANEL Glucose Lvl 340 70 - 99 02/26 [facility] /2016 [facility] CHEM PANEL Calcium Lvl 8.9 8.5 - 10.5 02/26 [facility] /2017 [facility] CHEM PANEL Chloride Lvl 97 95 - 109 02/26 [facility] /2016 [facility] CHEM PANEL CO2 26 24 - 32 02/26 [place] /2017 [facility] CHEM PANEL Alk Phos 158 39 - 136 02/26 [place] /2017 [facility] CHEM PANEL ASPARTATE 16 0 - 37 02/26 [place] [facility] CHEM PANEL Albumin Lvl 3.9 3.5 - 5.0 02/26 [facility] /2016 [facility] CHEM PANEL Lactic Acid 1.8 0.5 - 2.2 02/26 [facility] /2016 [facility] HEMATOLOGY Platelet 305 133 - 450 02/26 [place] /2017 Hospital HEMATOLOGY MCV 82.2 80.0 - 02/26 [place] 98.0 /2016 [facility] HEMATOLOGY Hct 37.1 36.0 - 02/26 [place] 48.0 /2016 Hospital HEMATOLOGY MPV 7.4 7.4 - 10.4 02/26 [place] /2017 Hospital HEMATOLOGY RDW 14.1 11.5 - 02/26 [place] 14.5 /2016 Hospital HEMATOLOGY MCH 27.6 27.0 - 02/26 [place] 31.0 /2016 [facility] HEMATOLOGY MCHC 33.6 32.0 - 02/26 [place] 36.0 /2017 Hospital HEMATOLOGY RBC X 10x6 4.52 4.20 - 02/26 [place] 5.40 /2016 Hospital HEMATOLOGY Hgb 12.5 12.0 - 02/26 [place] 16.0 /2016 Hospital HEMATOLOGY WBC X 10x3 [...] Hospital HEMATOLOGY Segs 53.4 45.0 - 02/26 [place] 75.0 /2016 Hospital HEMATOLOGY Lymphocytes 39.1 20.0 [...] AND UA 0.2 0.1 - 1.0 02/26 [place] STOOL Urobilinogen /2016 Hospital URINE AND UA Nitrite Negative Negative 02/26 [facility] (02/25/17 7:42 PM) Hospi roly URINE AND UA Bili Negative Negative 02/26 [place] [facility] *NA* /2016 Hospital (02/25/17 7:42 PM) URINE AND UA Ketones Negative Negative 02/26 [facility] *NA* /2016 [facility] (02/25/17 7:42 PM) URINE AND UA Bacteria Many /HPF None Seen 02/26 [facility] /HPF /2016 Hospital URINE AND UA WBC 0-2 /HPF None Seen 02/26 [place] STOOL /HPF /2016 Hospital URINE AND UA RBC 0-2 /HPF 0 - 2 02/26 [place] STOOL /2016 Hospital URINE AND UA Leuk Est Negative Negative 02/26 [facility] (02/25/17 7:42 PM) /2016 Hospi [facility]ly URINE AND UA Sq Epi Few /LPF Few /LPF 02/26 [place] [facility] URINE AND UA Blood Negative Negative 02/26 [place] [facility] (02/25/17 7:42 PM) [facility]pi [facility] URINE AND UA Glucose >=1000 Negative 02/26 [place] [facility] mg/dL mg/dL /2016 Hospital URINE AND UA Protein Negative Negative 02/26 [facility] (02/25/17 7:42 PM) [facility]pi [facility] URINE AND UA pH 6.0 5.0 - 8.0 02/26 [place] STOOL /2016 Hospital URINE AND UA Spec Grav 1.010 <=1.030 02/26 [facility] URINE AND UA Color Yellow Yellow 02/26 [place] STO[facility] *NA* /2016 Hospital (02/25/17 7:42 PM) URINE AND UA Turbidity Slight Cloudy Clear 02/26 [place] [facility] (02/25/17 7:42 PM) Hospi [facility]ly VIRAL - Influ B Negative Negative 02/26 [place] [facility] (02/25/17 7:42 PM) Hosp ital VIRAL - Influ A Negative Negative 02/26 [place] [facility] (02/25/17 7:42 PM) Hosp ital CHEM [...] Alk Phos 165 39 - 136 01/26 [facility] CHEM PANEL B/C Ratio 12 6 - 25 01/26 [facility] CHEM PANEL Globulin 3.3 2.7 - 4.2 01/26 [facility] CHEM PANEL Albumin Lvl 2.4 3.5 - 5.0 01/26 [facility] CHEM PANEL Total 5.7 6.4 - 8.4 01/26 [facility] CHEM PANEL AGAP 9.7 10.0 - 01/26 [facility] 20.0 [facility] CHEM PANEL Glucose Lvl 261 70 - 99 01/26 [facility] CHEM PANEL Calcium Lvl 7.4 8.5 - 10.5 01/26 [facility] CHEM PANEL A/G Ratio 0.7 0.7 - 1.6 01/26 [facility] CHEM PANEL Creatinine 0.40 0.50 - 01/26 [facility] [place] [facility] 1[facility]40 [facility] CHEM PANEL BUN 5 7 - 22 01/26 [place] 2017 Hospital CHEM PANEL ASPARTATE 37 0 - 37 01/26 [place] [facility] CHEM PANEL ALANINE 44 0 - 65 01/26 [facility] RASE CHEM PANEL Potassium 3.7 3.5 - 5.1 01/26 [facility] CHEM PANEL Sodium Lvl 137 135 - 145 01/26 [facility] CHEM PANEL CO2 25 24 - 32 10 [facility] CHEM PANEL Chloride Lvl 106 95 - 109 01/26 [facility] CARDIAC Troponin-I <0.02 0.00 - 01/25 [place] ENZYMES 0.40 [facility] PARATHYROI Ca Norm WB 0.99 1.05 - 01/25 [place] D PROFILE 1. [facility] PARATHYROI Ca Ion WB 1.01 1.05 - 01/25 [place] D PROFILE 1. Hospital CHEM PANEL Albumin Lvl 2.6 3.5 - 5.0 01/25 [facility] CHEM PANEL eGFR 112 01/25 Result [place] Comment: The Hospital eGFR is calculated using [...] CHEM PANEL Creatinine 0.50 0.50 - 01/25 [place] [facility] 1.40 [facility] CHEM PANEL Sodium Lvl 135 135 - 145 01/25 [facility] CHEM PANEL Potassium 3.6 3.5 - 5.1 01/25 [facility] CHEM PANEL CO2 25 24 - 32 01/25 [facility] CHEM PANEL Chloride Lvl 105 95 - 109 01/25 [facility] CHEM PANEL AGAP 8.6 10.0 - 01/25 [facility] 20.0 [facility] CHEM PANEL Calcium Lvl 6.9 8.5 - 10.5 01/25 [facility] Comment: Hospital Critical Result(s) called to uyen martinez_ at _01/25/2017 15:47 by_bz. Read back OK. CHEM PANEL Glucose Lvl 263 70 - 99 01/25 [facility] CHEM PANEL BUN 8 7 - 22 01/25 [facility] CHEM PANEL Phosphorus 2.7 2.5 - 4.5 01/25 [facility] CHEM PANEL eGFR 106 01/25 [facility] [place] Comment: The Hospital eGFR is calculated using [...] CHEM PANEL Creatinine 0.60 0.50 - 01/25 [place] L[facility] 1.40 [facility] CHEM PANEL BUN 9 7 - 22 01/25 [facility] CHEM PANEL Glucose Lvl 405 70 - 99 01/25 [facility] Comment: Hospital Critical Result(s) called to Dung Mullins at 01/25/2017 04:39 by CV. Read back OK. CHEM PANEL AGAP 12.5 10.0 - 01/25 [facility] 20.0 [facility] CHEM PANEL Potassium 3.5 3.5 - 5.1 01/25 [facility] CHEM PANEL Chloride Lvl 102 95 - 109 01/25 [facility] CHEM PANEL CO2 23 24 - 32 01/25 [facility] CHEM PANEL Calcium Lvl 7.1 8.5 - 10.5 01/25 [facility] CHEM PANEL Sodium Lvl 134 135 - 145 01/25 [facility] CHEM PANEL Magnesium 1.7 1.8 - 2.4 01/25 [facility] HEMATOLOGY MPV 7.4 7.4 - 10.4 01/25 [place] 2017 Hospital HEMATOLOGY RDW 13.6 11.5 - 01/25 [place] 14.5 [facility] HEMATOLOGY Platelet 244 133 - 450 01/25 [place] 2017 Hospital HEMATOLOGY MCHC 33.4 32.0 - 01/25 [place] 36.0 [facility] HEMATOLOGY MCV 82.5 80.0 - 01/25 [place] 98.0 [facility] HEMATOLOGY MCH 27.6 27.0 - 01/25 [place] 31.0 [facility] HEMATOLOGY Hgb 10.7 12.0 - 01/25 [place] 16.0 Hospital HEMATOLOGY Hct 32.0 36.0 - 01/25 [place] 48.0 [facility] HEMATOLOGY WBC X 10x3 5.5 3.7 - 10.4 01/25 [facility] HEMATOLOGY RBC X 10x6 3.88 4.20 - 01/25 [place] 5.40 [facility] HEMATOLOGY Monocytes 7.2 2.0 - [...] Hospital HEMATOLOGY Segs 55.0 45.0 - 01/25 [place] 75.0 [facility] SPECIAL Hgb A1C >16.0 % <=5.6 % 01/25 [place] CHEMISTRY Hospital URINE AND UA Sq Epi Occasional Few /LPF 01/25 [facility] /LPF /2016 Hospital URINE AND UA WBC 11-20 /HPF None Seen 01/25 [facility] /HPF /2016 Hospital URINE AND UA Bacteria Moderate None Seen 01/25 [facility] /HPF /HPF /2016 Hospital URINE AND UA RBC 0-2 /HPF 0 - 2 01/25 [place] STOOL /2016 Hospital URINE AND UA Leuk Est Negative Negative 01/25 [facility] (01/24/17 11:54 PM) /2016 Hosp ital URINE AND UA Nitrite Positive Negative 01/25 [facility] *ABN* /2016 Hospital (01/24/17 11:54 PM) URINE AND UA Blood Negative Negative 01/25 [place] [facility] (01/24/17 11:54 PM) Hosp ital URINE AND UA Bili Negative Negative 01/25 [place] STOOL *NA* /2016 Hospital (01/24/17 11:54 PM) URINE AND UA Glucose >=1000 Negative 01/25 [place] STOOL mg/dL mg/dL /2016 Hospital URINE AND UA Protein Negative Negative 01/25 [facility] (01/24/17 11:54 PM) Hosp ital URINE AND UA 0.2 0.1 - 1.0 01/25 [place] STOOL Urobilinogen /2016 Hospital URINE AND UA Ketones Negative Negative 01/25 [facility] *NA* /2016 Hospital (01/24/17 11:54 PM) URINE AND UA pH 5.5 5.0 - 8.0 01/25 [place] STOOL /2016 Hospital URINE AND UA Spec Grav <=1.005 <=1.030 01/25 [facility] *NA* /2016 Hospital (01/24/17 11:54 PM) URINE AND UA Color Yellow Yellow 01/25 [place] STO[facility] *NA* /2016 Hospital (01/24/17 11:54 PM) URINE AND UA Turbidity Clear Clear 01/25 [facility] (01/24/17 11:54 PM) /2016 Hosp ital CARDIAC Total CK 62 12 - 191 01/25 [place] [facility] CARDIAC CK MB <1.0 0.5 - 3.6 01/25 [place] [facility] CARDIAC Troponin-I <0.02 0.00 - 01/25 [place] [facility] 0.40 Hospital CARDIAC CK-MB INDEX <1.6 0.0 - 2.5 01/25 [place] [facility] CHEM PANEL ASPARTATE 14 0 - 37 01/25 [place] [facility] CHEM PANEL Bili Total 0.5 0.2 - 1.3 01/25 [facility] CHEM PANEL ALANINE 37 0 - 65 01/25 [place] [facility] RASE CHEM PANEL Alk Phos 222 39 - 136 01/25 [facility] CHEM PANEL A/G Ratio 0.7 0.7 - 1.6 01/25 [facility] CHEM PANEL Globulin 4.7 2.7 - 4.2 01/25 [facility] CHEM PANEL Albumin Lvl 3.5 3.5 - 5.0 01/25 [facility] CHEM PANEL B/C Ratio 16 6 - 25 01/25 [place] 2017 Hospital CHEM PANEL Total 8.2 6.4 - 8.4 01/25 [facility] CHEM PANEL Lipase Lvl 168 73 - 393 01/25 [facility] 2017 [facility] HEMATOLOGY Hgb 13.7 12.0 - 01/25 [place] 16.0 2017 Hospital HEMATOLOGY Hct 41.6 36.0 - 01/25 [place] 48.0 [facility] HEMATOLOGY MCV 83.6 80.0 - 01/25 [place] 98.0 /2016 Hospital HEMATOLOGY MCH 27.5 27.0 - 01/25 [place] 31.0 /2017 Hospital HEMATOLOGY MCHC 32.9 32.0 - 01/25 [place] 36.0 /2016 Hospital HEMATOLOGY RDW 13.6 11.5 - 01/25 [place] 14.5 Hospital HEMATOLOGY Platelet 314 133 - 450 01/25 [place] /2017 Hospital HEMATOLOGY MPV 8.1 7.4 - 10.4 01/25 [place] /2017 Hospital HEMATOLOGY WBC X 10x3 5.8 3.7 - 10.4 01/25 [facility] /2017 Hospital HEMATOLOGY RBC X 10x6 4.97 4.20 - 01/25 [place] 5.40 /2016 Hospital HEMATOLOGY Monocytes # 0.4 [...] Hospital HEMATOLOGY Segs 59.9 45.0 - 01/25 [place] 75.0 /2016 Hospital HEMATOLOGY Lymphocytes 31.7 20.0 - 01/25 [facility] 40.0 [facility] BEDSIDE Comment1 Notify 02/05 NA GLUCOSE KIRIT/ /2011 [facility] TESTING BEDSIDE Gluc POC 293 70 - 99 02/05 HI <sup>1</sup>I GLUCOSE [place] nterpretive [facility] TESTING Data: Upper Reportable Limit: 200 mg/dL. BEDSIDE Comment1 Notify 11/28 NA [place] [facility]UCOSE KIRIT/ /2011 [facility] TESTING BEDSIDE Gluc POC 233 70 - 99 11/28 [place] <sup>1</sup>I [place] GLUCOSE [facility] /2011 nterpretive [facility] TESTING Data: Upper Reportable Limit: 200 [...] values reflect the clinical guidelines
of the [place] [employer]. CHEMISTRY Chloride Lvl 98 95 [...] values reflect the clinical guidelines
of the [place] [employer]. CHEMISTRY Chloride Lvl 100 95 [...] - 99 10/24 CRIT <sup>3</sup>I [place] GLUCOSE [facility] nterpretive [place] TESTING Data: Upper Reportable Limit: 200 mg/dL. BEDSIDE Gluc POC 273 65 - 110 05/23 HI <sup>1</sup>I [place] GLUCOSE [facility] nterpret[facility] [place] TESTING Data: Upper Reportable Limit: 200 mg/dL. BEDSIDE Comment1 Notify 05/23 NA [place] [facility]UCOSE [place]/ [facility] TESTING BEDSIDE Gluc POC >400 65 - 110 05/23 CRIT <sup>2</sup>I [place] [facility] Data: Upper Reportable [...] on the clinical recommendatio ns of the [place] [employer]. CHEMISTRY BUN 12 7 - [...] on the clinical recommendatio ns of the [place] [employer]. CHEMISTRY Creatinine 0.8 0.5 - [...] on the clinical recommendatio ns of the [place] [employer]. CHEMISTRY Lipase Lvl 171 73 [...] [place] (03/25/2011 20:00:00) [place] URINALYSIS UA [place] Occasional /HPF None Seen 03/26 ABN [...] on the clinical recommendatio ns of the [place] [employer]. CHEMISTRY BUN 11.0 7 - [...] gar (02/10/2011 22:26:00) ?? [place] URINALYSIS UA [place] Occasional /HPF >None Seen 02/11 ABN [...] on the clinical recommendatio ns of the [place] [employer]. CHEMISTRY Sodium Lvl 131.0 135 [...] - 110 01/15 HI <sup>1</sup>I [place] [facility]SE [facility] nterpret[facility] [place] TESTING Data: Upper Reportable Limit: 200 mg/dL. BEDSIDE Comment1 Notify 01/15 NA [place] [facility]UCOSE RN/MD [facility] TESTING BEDSIDE Comment1 Notify 01/15 NA [place] [facility]UCOSE RN/MD /2010 [facility] TESTING BEDSIDE Gluc POC 88.0 65 - 110 01/15 Normal <sup>2</sup>I [place] [facility]SE [facility] nterpretive [place] TESTING Data: Upper Reportable Limit: 200 mg/dL. BEDSIDE Comment1 Notify 01/15 NA [place] GLUCOSE RN/MD [place] TESTING BEDSIDE Gluc POC 70.0 65 - 110 01/15 Normal <sup>3</sup>I [place] [facility]SE [facility] nterpretive [place] TESTING Data: Upper Reportable [...] on the clinical recommendatio ns of the [place] [employer]. CHEMISTRY LDL 96.0 0 - [...] on the clinical recommendatio ns of the [place] [employer]. CHEMISTRY BUN 9.0 7 - [...] 01/14 Normal [place] 31.0 /2010 [facility] HEMATOLOGY Hgb 13.2 12.0 - 10 Normal [place] 16.0 /2010 [facility] HEMATOLOGY RBC 4.6 4.20 - 01/14 Normal [place] 5.40 /2010 [facility] HEMATOLOGY Hct 38.9 36.0 - 01/14 Normal [place] 48.0 /2010 [facility] HEMATOLOGY MCV 84.6 81.0 - 01/14 Normal [place] 99.0 /2010 [facility] HEMATOLOGY WBC 5.6 3.7 - 10.4 10 Normal [place] /2010 [facility] HEMATOLOGY PT 13.6 12.0 - 01/14 Normal [place] 14.7 /2010 [facility] HEMATOLOGY PTT 30.2 22.9 - 10 Normal <sup>10</sup> Seana r 35.8 [place] [place] Data: Heparin Therapeutic Range: 57 - 92 Seconds HEMATOLOGY INR 1.04 0.85 - 01/14 Normal <sup>8</sup>I [facility] r 1.17 nterpretive [facility] Data: RECOMMENDED RANGES FOR PROTIME INR: 2.0-3.0 for most medical and surgical thromboemboli c states. 2.5-3.5 for artificial heart valves and recurrent embolism. INR SHOULD BE USED ONLY FOR PATIENTS ON STABLE ANTICOAGULANT THERAPY. HEMATOLOGY D-Dimer 1.5 01/14 NA <sup>9</sup>I [facility] r /2010 nterpretive [facility] Data: In DIC, quantitative D-Dimer is [...] and I concur with the interpretation. 02/25/2017 [facility] Clinical Indication: Headache, fever, neck pain Comparison: [...] No mass, hemorrhage, or subacute stroke. SL: [id number] Spine cervical wo CT cervical spine without contrast 02/25/2017 [facility] contrast CT Clinical Indication: - neck pain [...] ABDOMEN AND PELVIS WITH CONTRA ST 01/24/2017 [facility] contrast CT Clinical Indication: Acute l eft [...] series DX RIGHT FOOT 3 VIEW 12/26/2016 [facility] HISTORY: Toe injury. No [...] Hospital Temperature Oral (F) 97.6 F 02/26/2017 [facility] Heart Rate 85 02/26/2017 [facility] Respitory Rate 16 02/26/2017 [facility] Systolic (mm Hg) 114 02/26/2017 [facility] Diastolic (mm Hg) 66 02/26/2017 [facility] Heart Rate 82 02/26/2017 [facility] Temperature Oral (F) 98.8 F 02/26/2017 [facility] Weight 49.545 02/26/2017 [facility] BMI Calculated 18.75 02/26/2017 [facility] Height 162.56 cm 02/26/2017 [facility] Systolic (mm Hg) 109 02/26/2017 [facility] Diastolic (mm Hg) 65 [facility] 84 02/26/2017 [facility] Respitory Rate 14 02/26/2017 [facility] Respitory Rate 18 02/25/2017 [facility] Systolic (mm Hg) 114 02/25/2017 [facility] Diastolic (mm Hg) 63 02/25/[facility] Temperature Oral (F) 98.2 F 02/25/[facility] Heart Rate 78 02/25/2017 [facility] BMI Calculated 18.75 02/25/2017 [facility] Weight 49.545 02/25/2017 [facility] Height 162.56 cm 02/25/2017 [facility] 77 02/25/2017 [facility] Respitory Rate 18 02/25/2017 [facility] Temperature Oral (F) 97.8 F 02/25/2017 [facility] Systolic (mm Hg) 147 02/25/2017 [facility] Diastolic (mm Hg) 80 02/25/2017 [facility] Weight 49.659 02/25/2017 [facility] Height 167.64 cm 02/25/2017 [facility] Temperature Oral (F) 97.8 F 02/25/2017 [facility] BMI Calculated 17.67 02/25/2017 [facility] Systolic (mm Hg) 145 02/25/2017 [facility] Diastolic (mm Hg) 80 02/25/2017 [facility] Resp[facility] Rate 18 02/25/[address] [facility] Heart Rate 77 02/25/2017 [facility] Temperature Oral (F) 98.5 F 01/26/2017 [facility] Heart Rate 87 01/26/2017 [facility] Respitory Rate 20 01/26/2017 [facility] Systolic (mm Hg) 116 01/26/2017 [facility] Diastolic (mm Hg) 69 01/26/2017 [facility] Heart Rate 79 01/26/2017 [facility] Respitory Rate 18 01/26/2017 [facility] Temperature Oral (F) 98.4 F 01/26/2017 [facility] Systolic (mm Hg) 129 01/26/2017 [facility] Diastolic (mm Hg) 80 01/26/2017 [facility] Temperature Oral (F) 98.1 F 01/26/2017 [facility] Heart Rate 78 01/26/[address] [facility] Systolic (mm Hg) 120 01/26/[address] [facility] Diastolic (mm Hg) 69 01/26/[address] [facility] Respitory Rate 20 01/26/2017 [facility] Height 157.48 cm 01/25/[address] [facility] Weight 51.449 01/25/[address] [facility] BMI Calculated 20.75 01/25/[address] [facility] Weight 52.273 01/25/2017 [facility] BMI Calculated 19.78 01/25/2017 [facility] Height 162.56 cm 01/25/2017 [facility] Systolic (mm Hg) 121 12/27/[address] [facility] Diastolic (mm Hg) 81 12/27/2016 [facility] Respitory Rate 16 12/27/2016 [facility] Heart Rate 82 12/27/2016 [facility] Temperature Oral (F) 98.3 F 12/27/2016 [facility] Temperature Oral (F) 98.4 F 12/27/2016 [facility] Respitory Rate 18 12/27/2016 [facility] Systolic (mm Hg) 126 12/27/2016 [facility] Diastolic (mm Hg) 81 12/27/2016 [facility] BMI Calculated 18.92 12/27/[address] [facility] Weight 50 12/27/2016 [facility] Heart Rate 89 12/27/2016 [facility] Height 162.56 cm 12/27/2016 [facility] Height 162.56 cm 02/06/2012 [facility] Weight 47.273 02/06/2012 [facility] Height 162.56 cm 11/29/2011 [place] Weight 50.000 11/29/2011 [place] Height 162.56 cm 10/25/2011 [place] Weight 54.545 10/25/2011 [place] Height 162.56 cm 05/23/2011 [place] Weight 50.000 05/23/2011 [place] Temperature Oral (F) 98.5 F 05/08/2011 [place] Diastolic (mm Hg) 57 05/08/2011 [place] [facility] Systolic (mm Hg) 107 05/08/2011 [place] Heart Rate 57 05/08/2011 [place] Respitory Rate 16 05/08/2011 [facility] [place] Weight 50.000 05/08/2011 [facility] [place] Height 162.56 cm 05/08/2011 [place] Temperature Oral (F) 98.6 F 05/08/2011 [facility] [place] Diastolic (mm Hg) 70 05/08/2011 [facility] [place] [facility] Systolic (mm Hg) 127 05/08/2011 [facility] [place] Heart Rate 83 05/08/2011 [facility] [place] Respitory Rate 16 05/08/2011 [facility] [place] Respitory Rate 18 04/20/2011 [facility] [place] Heart Rate 79 04/20/2011 [facility] [place] Diastolic (mm Hg) 75 04/20/2011 [facility] [place] [facility] Systolic (mm Hg) 119 04/20/2011 [facility] [place] Diastolic (mm Hg) 97 04/20/2011 [facility] [place] [facility] Heart Rate 80 04/20/2011 [facility] [place] Systolic (mm Hg) 148 04/20/2011 [facility] [place] Respitory Rate 20 04/20/2011 [facility] [place] Weight 50.000 04/20/2011 [facility] [place] Systolic (mm Hg) 122 04/20/2011 [place] Temperature Oral (F) 98.0 F 04/20/2011 [place] Respitory Rate 18 04/20/2011 [place] Heart Rate 79 04/20/2011 [facility] [place] Diastolic (mm Hg) 75 04/20/2011 [place] [facility] Temperature Oral (F) 98.0 F 03/26/2011 [facility] [place] Respitory Rate 18 03/26/2011 [place] Heart Rate 69 03/26/2011 [facility] [place] Systolic (mm Hg) 112 03/26/2011 [facility] [place] Diastolic (mm Hg) 60 03/26/2011 [facility] [place] [facility] Height 160.02 cm 03/26/2011 [facility] [place] Weight 53.636 03/26/2011 [facility] [place] Temperature Oral (F) 99.0 F 03/26/2011 [place] Diastolic (mm Hg) 67 03/26/2011 [facility] [place] [facility] Systolic (mm Hg) 115 03/26/2011 [facility] [place] Respitory Rate 16 03/26/2011 [facility] [place] Heart Rate 75 03/26/2011 [facility] [place] Diastolic (mm Hg) 51.0 02/11/2011 [facility] [place] [facility] Respitory Rate 14.0 02/11/2011 [facility] [place] Systolic (mm Hg) 100.0 02/11/2011 [facility] [place] Heart Rate 59.0 02/11/2011 [place] Temperature Oral (F) 98.1 F 02/11/2011 [facility] [place] Diastolic (mm Hg) 54.0 02/11/2011 [place] [facility] Systolic (mm Hg) 102.0 02/11/2011 [place] Temperature Oral (F) 97.5 F 02/11/2011 [place] Heart Rate 61.0 02/11/2011 [facility] [place] Respitory Rate 16.0 02/11/2011 [place] Height 162.56 cm 02/11/2011 [facility] [place] Weight 56.96 02/11/2011 [facility] [place] Respitory Rate 18.0 02/11/2011 [place] Temperature Oral (F) 98.0 F 02/11/2011 [place] Heart Rate 61.0 02/11/2011 [place] Systolic (mm Hg) 111.0 02/11/2011 [place] Diastolic (mm Hg) 61.0 02/11/2011 [place] [facility] Weight 52.273 02/11/2011 [place] Height 162.56 cm 02/11/2011 [place] Diastolic (mm Hg) 59.0 01/15/2011 [place] [facility] Systolic (mm Hg) 105.0 01/15/2011 [place] Temperature Oral (F) 97.0 F 01/15/2011 [place] Heart Rate 59.0 01/15/2011 [place] Respitory Rate 18.0 01/15/2011 [place] Temperature Oral (F) 97.2 F 01/15/2011 [place] Respitory Rate 18.0 01/15/2011 [place] Heart Rate 71.0 01/15/2011 [place] Diastolic (mm Hg) 59.0 01/15/2011 [place] [facility] Systolic (mm Hg) 106.0 01/15/2011 [place] Respitory Rate 18.0 01/15/2011 [place] Systolic (mm Hg) 110.0 01/15/2011 [place] Heart Rate 62.0 01/15/2011 [place] Temperature Oral (F) 97.9 F 01/15/2011 [place] Diastolic (mm Hg) 58.0 01/15/2011 [place] [facility] Height 162.56 cm 01/15/2011 [place] Weight 56.818 01/15/2011 [place] Height 162.56 cm 01/14/2011 [place] Weight 50.0 01/14/2011 [place] Systolic (mm Hg) 115.0 12/22/2010 [place] Diastolic (mm Hg) 78.0 12/22/2010 [place] [facility] Peripheral Pulse Rate 74.0 12/22/2010 [place] Respitory Rate 16.0 12/22/2010 [place] Height 162.56 cm 12/22/2010 [place] Weight 52.273 12/22/2010 [place] Temperature Oral (F) 98.2 F 12/22/2010 [place] Respitory Rate 16.0 12/22/2010 [place] Peripheral Pulse Rate 75.0 12/22/2010 [place] Diastolic (mm Hg) 77.0 12/22/2010 [place] [facility] Systolic (mm Hg) 125.0 12/22/2010 [place] En[place] Location Location Encounter Encounter Reason Attending ADM [place] Stat us Source Details Type Number For Provider Date Date Visit Emergency [id number] ABD TRA PSYK 08/15 08/16 Acti ve [facility] 8 PAIN, /2009 [place] Emergency [id number] UPPER BE 09/20 09/21 [facility] ABDOMINA [place] /2009 [place] Emergency [id number] EAR PAIN TRA PSYK 10/09 10/09 Ac [facility]ive [facility] /2009 [place] OU [id number] CHEST TAJUDDIN 10/31 11/02 Active [place] 1 PAIN CONSUELO /2009 [place] Emergency [id number] ABDOMINA TROY 01/03 01/03 Active [place] 2 L PAIN [place] /2009 [place] O[place] [id number] ABDOMINA CHRISTOPHER 01/05 01/07 Activ e [place] 4 L PAIN GONZALEZ /2009 [place] Emergency [id number] SUGAR TRA PSYK 07/21 07/21 Acti ve [place] 6 HIGH,VAG /2010 [place] BLEEDING Emergency [id number] FACIAL TROY 10/07 10/07 [facility] AND NECK [place] /2010 [place]IN [place] Inpatient [id number] FACIAL TARAH 10/09 10/13 Active [facility] 8 NECK BRIDGES /2010 [place] CELLULIT [place] IS Emergency [id number] MOISE MONTEMAYOR 12/22 12/22 Disc harg [facility] ed [place] OU [id number] CHEST DEE CROCKETT 01/14 01/15 Active [facility] 0 PAIN /2010 [place] OU [id number] CHEST DEE CROCKETT 02/11 02/11 Active [place] 1 PAIN, /2010 [place] S,HYPERG LYCEMIA, UTI Emergency [id number] LOWER LIZY 03/25 03/26 Active [facility] 2 ABD WISEMAN /2010 [place] PAIN/ [place] HIGH SUGAR Emergency [id number] RIGHT LIZY 04/19 04/20 Active [facility] 3 ABDOMINA [place]IS[place] /2011 [place]IN, [place] BLOOD IN URINE Emergency [id number] BLEEDING TROY 05/07 05/07 Active [facility] 4 / RT ROWAN /2011 [place] SIDE [place] PAIN Emergency [id number] ABDOMINA VIMI SHOEMAKER 05/22 05/23 Ac tive [facility] 5 L PAIN /2011 [place] HIGH [place] BLOOD SUGAR Emergency [id number] LEFT VIMI SHOEMAKER 10/23 10/24 Acti ve [facility] 6 LOWER /2011 [place] L PAIN Emergency [id number] BLOOD VIMI SHOEMAKER 11/27 11/27 Acti ve [facility] 7 SUGAR /2011 [place] PROBLEM Land YEIMY [id number] GUID[place] 02/05 02/05 Discharg [facility] 9 BAVISHI /2011 ed [facility] e [facility] Outpatient [id number] ABDOMINA GUIDO 02/16 Active [facility] 8 L PAIN [place] [facility] Emergency [id number] Moise Montemayor 12/27 12/27 [facility] [id number] Greg 01/25 01/26 Jona 1 [id number] Rudolph 02/25 02/25 Jona 2 Pilar Escobar [facility] Emergency [id number] Rudolph 02/26 02/26 [place] 3 [place] [facility] Outpatient [id number] ABD PAIN MESHA Jose Alfredo e [facility] 3 [facility] Procedures Procedure Code Date Perfomer Comments Source Appendectomy [id number] [facility] Cholecystectomy [id number] [facility] Partial hysterectomy [id number] [facility] Assessment and Plan Assessment and Plan Date Source Extracted from:Title: Progress Note * 01/26/2017 [facility] Author: Marie June MD Date: 01/25/17 Impression and Plan The patient was seen and examined by me with the resident/PAINT PREPARER/PA and I agree with the History/Exam documented. [...]
--- OUTSIDE RECORDS SUMMARY | 2020-05-17 08:23 | XMS REPORT | Continuity of Care Document ---
:1965 Author Organization [facility] t Address [address] [place] [address] Care Team Providers Name Role Phone Sharpless [...] HURT 00:00: [place] TOES 00 Active 12/27/2016 [facility] [place] ABDOMINAL Diagnosis Active 2011-042012-02-17 Memoria PAIN 0-26 10:42:00 l 00:00: [place] ABDOMINAL 00 PAIN Active 02/07/2012 [facility] EGD Diagnosis Active 2011-042012-02-06 Mem oria 0-24 10:10:00 l EGD 06:00: [place] 00 Active 02/05/2012 [facility] BLOOD Diagnosis Active 2011-12-11 Mem oria SUGAR 8-16 11:15:00 l PROBLEM BLOOD 15:00: [place] SUGAR 00 PROBLEM Active 11/28/2011 [place] LEFT LOWER Diagnosis Active 2011-12-11 Memoria ABDOMINAL 7-12 10:48:00 l PAIN LEFT 08:00: [place] LOWER 00 ABDOMINAL PAIN Active 10/24/2011 [place] ABDOMINAL Diagnosis Active 2011-12-11 Mem[facility] PAIN HIGH 2-08 11:09:00 l BLOOD 22:00: [place] SUGAR ABDOMINAL 00 PAIN HIGH BLOOD SUGAR Active 05/22/2011 [place] BLEEDING/ Diagnosis Active 2011-12-11 Memoria RT SIDE 1-24 11:06:00 l PAIN 08:00: [place] BLEEDING/ 00 RT SIDE PAIN Active 05/07/2011 [place] RIGHTABDOM Diagnosis Active 2011-04-19 [facility] INAL PAIN 1-06 20:37:00 l . AND 00:00: [place] BLOOD IN RIGHTABDOM 00 URINE INAL PAIN . AND BLOOD IN URINE Active 04/19/2011 [place] RIGHT Diagnosis Active 2011-12-20 Mem oria ABDOMINAL 1-06 13:03:00 l PAIN, RIGHT 00:00: [place] BLOOD IN ABDOMINAL 00 URINE PAIN, BLOOD IN URINE Active 04/19/2011 [place] LOWER ABD Diagnosis Active 2010-042011-12-11 Memoria PAIN/ HIGH 2-12 11:02:00 l SUGAR LOWER 00:00: [place] ABD PAIN/ 00 HIGH SUGAR Active 03/25/2011 [place] CHEST PAIN Diagnosis Active 2010-042011-02-11 Memoria AND 0-30 01:56:00 l TIGHTNESS CHEST 18:00: Jorge Luis n PAIN AND 00 TIGHTNESS Active 02/10/2011 [place] CHEST Diagnosis Active 2010-042011-02-15 Mem oria PAIN, 0-30 21:58:00 l DIZZINESS, CHEST 18:00: Eugenia nn HYPERGLYCE PAIN, 00 EB, UTI DIZZINESS, HYPERGLYCE EB, UTI Active 02/10/2011 [place] CHEST PAIN Diagnosis Active 2010-042011-01-15 Memoria 0-03 16:36:00 l CHEST 15:00: [place] PAIN 00 Active 01/14/2011 [place] RIGHT KNEE Diagnosis Active 2010-12-22 Memoria 1ST 3 TOES 9-10 13:04:00 l NUMB RIGHT 11:00: [place] KNEE 1ST 3 00 TOES NUMB Active 12/22/2010 [place] FACIAL Diagnosis Active 2010-12-22 Mem oria NECK 10-08 13:04:00 l CELLULITIS FACIAL 00:00: Herm ava NECK 00 CELLULITIS Active 10/08/2010 [place] FACIAL AND Diagnosis Active 2010-12-22 Memoria NECK PAIN 10-07 13:04:00 l FACIAL 06:00: [place] AND NECK 00 PAIN Active 10/07/2010 [place] SUGAR Diagnosis Active 2010-12-22 Mem oria HIGH,VAGIN 07-21 13:04:00 l AL SUGAR 00:00: [place] BLEEDING HIGH,VAGIN 00 AL BLEEDING Active 07/21/2010 [place] ABD PAIN Diagnosis Active 2010-12-22 M emoria 01-05 13:04:00 l ABD PAIN 00:00: Jorge Luis n 00 Active 01/05/2010 [facility] EAR PAIN Diagnosis Active 2010-12-22 M emoria 10-09 13:04:00 l EAR PAIN 19:00: Jorge Luis n 00 Active 10/09/2009 [place] UPPER Diagnosis Active 2010-12-22 Mem oria ABDOMINAL 09-20 13:04:00 l PAIN UPPER 14:00: [place] ABDOMINAL 00 PAIN Active 09/20/2009 [place] ABD PAIN, Diagnosis Active 2010-12-22 Memoria HIGH SUGAR - 13:04:00 l ABD 00:00: [place] PAIN, HIGH 00 SUGAR Active 08/15/2009 [place] Abdominal Problem Active 2012-02-19 Me moria pain 09:23:16 l [place] Abdominal pain Active Problem 02/19/2012 [facility] [place] Cellulitis Problem Active 2012-02-19 M emoria 09:23:16 l [place] Cellulitis Active Problem 02/19/2012 [facility] [place] Chest pain Problem Active 2012-02-19 M emoria 09:23:16 l Chest [place] pain Active Problem 02/19/2012 [facility] [place] Hyperglyce Problem Active 2012-02-19 M emoria eb 09:23:16 l [place] Hyperglyce eb Active Problem 02/19/2012 [facility] [place] UTI - Problem Active 2012-02-19 Memor ia Urinary 09:23:16 l tract UTI - [place] infection Urinary tract infection Active Problem 02/19/2012 [facility] [place] Diabetes Problem Active 2017-03-01 Mem oria mellitus 04:36:24 l (disorder) Diabetes He rmann mellitus (disorder) Active Problem 03/01/2017 [facility] Restless Problem Active 2017-03-01 Mem oria legs 04:36:24 l (disorder) Restless He rmann legs (disorder) Active Problem 03/01/2017 [facility] Abdominal Problem Active 2017-03-01 Me moria pain 04:36:24 l (finding) [place] Abdominal pain (finding) Active Problem 03/01/2017 [facility] Chest pain Problem Active 2017-03-01 M emoria (finding) 04:36:24 l Chest [place]ona pain (finding) Active Problem 03/01/2017 [facility] Hyperglyce Problem Active 2017-03-01 M emoria eb 04:36:24 l (disorder) Jorge Luis n Hyperglyce eb (disorder) Active Problem 03/01/2017 [facility] Urinary Problem Active 2017-03-01 Nirmal feliz tract 04:36:24 l infectious Urinary Her pugh disease tract (disorder) infectious disease (disorder) Active Problem 03/01/2017 [facility] CHEST PAIN Diagnosis Active 2010-12-22 Memoria NOS 13:04:00 l CHEST [place] PAIN NOS Active [place] CELLULITIS Diagnosis Active 2010-12-22 Memoria NOS 13:04:00 l [place] CELLULITIS NOS Active [place] Hyperglyce Problem 2016-2017-03-01 2017-03-01 Memoria eb, 1-14 04:36:24 04:36:24 l unspecifie 06:00: Jorge Luis n d Hyperglyce 00 eb, unspecifie d 02/25/2017 03/01/2017 [facility] Fever, Problem 2016-2017-03-01 2017-03-01 M emoria unspecifie - 04:36:24 04:36:24 l d Fever, 06:00: [place] unspecifie 00 d 02/25/2017 03/01/2017 [facility] Radiculopa Problem 2016-2017-02-28 2017-02-28 Memoria thy, 1-14 05:26:25 05:26:25 l cervical 06:00: [place] region Radiculopa 00 thy, cervical region 02/25/2017 02/28/2017 [facility] Displaced Problem 2016-2016-12-30 2016-12-30 Memoria unspecifie 9-15 05:13:20 05:13:20 l d fracture 05:00: Jorge Luis n of right Displaced 00 lesser unspecifie toe(s), d fracture initial of right encounter lesser for closed toe(s), fracture initial encounter for closed fracture 12/30/2016 [facility] Allergies, Adverse Reactions, Alerts Allergy Allergy Status Severity Reaction(s) Onset Inactive Treating Comm ents Source Name Type Date Date Clinician Methylph Propensi Active [facility] - adverse [facility] reaction [facility] Center s Ritalin Ritalin Active Emmanuelle Tenorio Social History Social Habit Start Date Stop Date Quantity Comments Source Sex Assigned At [facility] Tobacco use and 2017-10-06 2017-10-06 Never used [facility] kes - exposure 00:00:00 00:00:00 [facility] Alcohol intake 2017-10-06 2017-10-06 [facility]00 non-drinker of Medical nter alcohol (finding) Social History 2017-02-03 2017-02-03 [facility] hermila 15:24:44 15:24:44 Smoking Status Start Date Stop Date Source Never smoker [facility] Medications Ordered Filled Start Stop Current Ordering Indication Dosage Frequency Signature Comments Components Source Medication Medication Date Date Medication? Clinician (SIG) Name Name rOPINIRole Yes 1mg [id number] Take [address] [facility] (REQUIP) 1 3-26 [id number] by mouth 3 [facility] - MG tablet 12:00: 3D (three) Medic al 28 times Center daily. pregabalin Yes 50mg [id number] Take [address] [facility] (LYRICA) 50 3-26 [id number] by mouth 3 [facility] - MG capsule 12:00: 3D (three) Medi steven 28 times Center daily. GI cocktail 2016-04 No Notes: Nirmal feliz 1-15 G.I. l 05:06: Cocktail = [place] 00 antacid with simethicon e 22.5 mL - lidocaine viscous 7.5 mL Zofran 2016-04 No Notes: Memoria 1-15 (Same as: l 04:41: Zofran) [place] 00 MEDICATION WASTE Product Size: 4 mg Product Wasted: ___ mg Zofran 2016-04 No Notes: Memoria 1-15 (Same as: l 02:34: Zofran) [place] 00 MEDICATION WASTE Product Size: 4 mg Product Wasted: ___ mg Morphine 2016-04 No Notes: Memoria 1-15 (Same l 02:34: as:MORPhin [place] 00 e Sulfate) Lidocaine 2016-04 Yes Notes: Memori a Hydrochlori 1-15 Preservati l de 10 MG/ML 02:33: ve free. He rmann Injectable 00 (Same as: Solution Xylocaine MPF) Insulin 2016-04 No 60 Memoria regular 1-15 units) l 02:23: WASTE: F/P [place] 00 - Black; E - Municipal Trash Bin Stable for 28 days at room temperatur e Expires in days from ____Date Sodium 2016-04 No 2,000 mL, Memori a Chloride 1-15 1000 l 0.9% 02:22: ml/hr, [place] (Bolus) IV 00 Infuse Over: 2 hr, Route: IV, 2,000, Drug form: INJ, ONCE, Priority: STAT, Dosing Weight 49.545 kg, Start date: 02/25/17 20:22:00 NUTRITION SERVICES ASSISTANT, Stop date: 02/25/17 20:22:00 NUTRITION SERVICES ASSISTANT ibuprofen 2016-04 Yes 800 mg = 1 [...] day, # 6 tab, 0 Refill(s), Pharmacy: [facility][id number] Humalog 100 2016-04 Yes 4 unit, Mem oria units/mL 0-15 SUB-Q, l 14:48: TID-Before 00 Meals, hold insulin injection if your blood sugar is less than 140 mg/dL., # 10 mL, 0 Refill(s), Pharmacy: [facility] #[id number] pantoprazol 2016-04 Yes 40 mg = 1 M emoria e 40 MG 0-15 tab, PO, l Enteric 14:48: Daily, # Jorge Luis n Coated 00 30 tab, 0 Tablet Refill(s), [Protonix] Pharmacy: [facility] #[id number] Calcium 2016-04 Yes 500 mg = 1 Nirmal feliz Carbonate 0-15 tab, PO, l 500 MG 14:48: TID, # 6 [place] Chewable 00 tab, 0 Tablet Refill(s), [facility]acy: [id number] Insulin 2016-04 Yes 15 unit, Memori a Glargine 0-15 SUB-Q, l 100 UNT/ML 14:48: Daily, # Her pugh Injectable 00 10 mL, 0 Solution Refill(s), [Lantus] Pharmacy: [facility] #[id number] Calcium 2016-04 No Notes: Memoria Gluconate 0-15 WASTE: F/P l 14:47: - Sink; E [place] 00 - Municipal Trash Bin Calcium 2016-04 No Notes: Memoria Carbonate 0-15 (Same As: l 14:00: Tums) [place] 00 Calcium Carbonate 500 mg = 200 [...] Memoria 0-15 (Same as: l 02:00: Lyrica) [place] 00 Calcium 2016-04 No Notes: Memoria Carbonate 0-14 (Same As: l 22:40: Tums) [place] 00 Calcium Carbonate 500 mg = 200 mg elemental calcium Dose = mg calcium carbonate ( mg elemental calcium) Protonix 2016-04 No Notes: Memoria 0-14 Tablet l 22:00: should not [place] 00 be chewed or crushed. (Same as: Protonix) Magnesium 2016-04 No Notes: Memori a Oxide 0-14 (Same as: l 22:00: Mag-Ox [place] 00 400) Magnesium oxide 468vx=080c g elemental magnesium Dose=____m g magnesium oxide (___mg elemental magnesium) Ketorolac 2016-04 No 4 days Memor ia 0-14 l 17:02: MEDICATION [place] 00 WASTE Product Size: 30 mg Product Wasted: ___ mg Docusate 2016-04 No Notes: Memoria 0-14 (Same as: l 14:00: Colace) [place] 00 (Do Not Crush) Insulin 2016-04 No [...] Lispro 0-14 units) l 09:50: WASTE: F/P [place] 00 - Black; E - Municipal Trash Bin Stable for 28 days at room temperatur e. Expires in days from ____Date Ceftriaxone 2016-04 No Notes: Nirmal feliz 0-14 (Same As: l 07:00: Rocephin). [place] 00 Use with 100 mL NS and infuse over 30 min MEDICATION WASTE Product Size: 1000 mg Product Wasted: ___ mg Hydralazine 2016-04 No Notes: Nirmal feliz 0-14 (Same as: l 06:35: Apresoline ) Push over 5 minutes Glucagon 2016-04 No 1 mg, Memoria 0-14 Route: IM, l 06:35: Drug form: [place] PDR/INJ, PRN, Dosing Weight 51.449, kg, PRN Blood Glucose Results, Start date: 01/25/17 1:35:00 CDT, Duration: 30 day, Stop date: 02/24/17 0:34:00 NUTRITION SERVICES ASSISTANT Insulin 2016-04 No 60 Memoria Lispro 0-14 units) l 06:35: WASTE: F/P [place] 00 - Black; E - Municipal Trash Bin Stable for 28 days at room temperatur e. Expires in days from ____Date Dextrose 2016-04 No 25 gm, 50 Nirmal feliz 50% Syringe 0-14 mL, Route: l 06:35: IVP, Drug [place] 00 Form: INJ, Dosing Weight 51.449, kg, PRN, PRN Blood Glucose Results, Start date: 01/25/17 1:35:00 CDT, Duration: 30 day, Stop date: 02/24/17 0:34:00 NUTRITION SERVICES ASSISTANT Acetaminoph 2016-04 No Notes: Do M emoria en 0-14 not exceed l 06:32: 4 gm/day. (Same as: Tylenol) Acetaminoph 2016-04 No Notes: Nirmal feliz en 325 MG / 0-14 (Same as: l Hydrocodone 06:32: [place] Eugenia nn Bitartrate 00 325/5) Do 5 [...] 01/25/17 1:32:00 CDT, Stop date: 02/24/17 1:31:00 NUTRITION SERVICES ASSISTANT Saline 2016-04 No Notes: Memoria Flush 0.9% [...] Chloride 0-14 3000 l 0.9% 03:15: ml/hr, [place] (Bolus) IV 00 Infuse Over: 1 hr, [...] Memoria 0-14 Route: l 03:07: IVP, Drug [place] 00 form: INJ, ONCE, Dosing Weight 52.273, kg, Priority: STAT, Start date: 01/24/17 22:07:00 CDT, Stop date: 01/24/17 22:07:00 CDT Morphine 2016-04 No Notes: Memoria 0-14 (Same l 02:12: as:MORPhin [place] 00 e Sulfate) Acetaminoph No 1 - 2 tab, Memoria en 300 MG / -15 PO, Q4H, l Codeine 05:54: PRN Pain, Eugenia nn Phosphate 00 X 2 day, # 30 MG Oral 30 tab, 0 Tablet Refill(s) [Tylenol with Codeine #3] Acetaminoph No Notes: Nirmal feliz en 325 MG / 9-15 (Same as: l Hydrocodone 04:47: [place] Eugenia nn Bitartrate 00 325/5) Do 5 MG Oral not exceed Tablet 4gm/day of [[place] acetaminop 5/325] hen. insulin Yes QD Inject [facility] glargine 2- subcutaneo [facility] - (LANTUS) 18:24: [facility] 100 unit/mL 46 nightly. Cent er injection Use as directed Sodium No Vimi 500 mL, Memoria Chloride 11-28 Roche Rate: 500 l 0.9% 03:47: ml/hr, [place] (Bolus) IV 00 Infuse 500 mL over: 1 hr, Route: IV, Dosing Weight 50 kg, Total Volume: 500, Bolus Dose, Priority: STAT, Start date: 11/28/11 22:47:00, Duration: 1 doses or times, Stop date: 11/28/11 23:46:00 NovoLog Yes Substituti Nirmal feliz 11-28 on Allowed l 03:29: [place] Insulin No Vimi 7 unit, Memoria regular [...] 11-28 Roche Rate: l 0.9% 02:51: 1,000 [place] (Bolus) IV 00 ml/hr, 1,000 mL Infuse over: 1 hr, Route: IVPB, kg, Total Volume: 1,000, [place] Dose, Priority: STAT, Start date: 11/28/11 21:51:00, Duration: 1 doses or times, Stop date: 11/28/11 22:50:00 Saline No Vimi 5 ml, Memoria Flush 0.9% 11-28 Roche Route: l 02:51: IVP, Drug [place] 00 Form: INJ, kg, PRN, PRN Line Flush, Start date: 11/28/11 21:51:00, Duration: 30 day, Stop date: 12/28/11 21:50:00 [place] 5/325 2011-0 Yes Juan 1-2 tab, M emoria oral tablet 7-13 Keith PO, Q4-6H, l 06:12: Yeaton PRN, 15 [place] 25 tab, Pain, Substituti on Allowed, Soft [...] Keith Rate: l 0.9% 03:06: Yeaton 1,000 [place] (Bolus) IV 00 ml/hr, 1,000 mL Infuse [...] Roche 100 mL, l 05:47: Route: IV, [place] Drug form: INJ, ONCE, Start date: 05/22/11 23:47:00, Stop date: 05/22/11 23:47:00 Insulin 2011-0 No Vimi 5 unit, Memoria regular 2-09 Roche 0.05 mL, l 05:36: Route: [place] 00 SUB-Q, Drug form: SOLN, ONCE, Priority: STAT, Start date: 05/22/11 23:36:00, Stop date: 05/22/11 23:36:00 morphine 2011- No Vimi 2 mg, 0.4 Nirmal feliz Sulfate 2- Roche mL, Route: l 05:04: IVP, Drug [place] 00 form: INJ, ONCE, Priority: STAT, Start date: 05/22/11 23:04:00, Stop date: 05/22/11 23:04:00 ondansetron No Vimi 4 mg, 2 Mem oria 2- Roche mL, Route: l 05:04: IVP, Drug [place] 00 form: INJ, ONCE, Priority: STAT, Start date: 05/22/11 23:04:00, Stop date: 05/22/11 23:04:00 Sodium 2011- No Vimi 500 mL, Memoria Chloride 05-23 Roche Rate: l 0.9% 05:04: 1,000 [place] (Bolus) IV 00 ml/hr, 500 mL Infuse [...] 24 hr, Stop date: 05/23/11 23:03:00 Pyridium 2011- Yes Sonal 200 mg, 1 Me moria 200 mg oral 1-25 Raulito tab, PO, l tablet 02:08: TID, 9 [place] 33 tab, Substituti on Allowed Cipro 500 Yes Sonal 500 mg, 1 M emoria mg oral 1-25 Raulito tab, PO, l tablet 02:07: Q12H, 28 [place] 41 tab, Substituti on Allowed, TAB Pyridium 2011- No Sonal 200 mg, 2 Me moria 1-25 Raulito tab, l 02:03: Route: PO, [place] 00 Drug form: TAB, ONCE, Priority: STAT, Start date: 05/07/11 20:03:00, Stop date: 05/07/11 20:03:00 Cipro 2011-0 No Sonal 500 mg, 2 Memor ia 1-25 Raulito tab, l 02:03: Route: PO, [place] 00 Drug form: TAB, ONCE, Priority: STAT, Start date: 05/07/11 20:03:00, Stop date: 05/07/11 20:03:00 Cipro 500 2011- Yes Juan 500 mg, 1 Me moria mg oral 07 Keith tab, PO, l tablet 06:55: Yeaton BID, 20 Jorge Luis n 31 tab, Substituti on Allowed Zofran ODT Yes Juan 4 mg, 1 Mem oria 4 mg oral 04-20 Keith tab, PO, l tablet, 06:55: Yeaton TID, PRN, Her pugh disintegrat 29 10 tab, ing Nausea and Vomiting, Substituti on Allowed [place] Yes Juan 1 tab, PO, Memor ia [...] No Juan 10 unit, Memor ia regular 1-07 Keith 0.1 mL, l 05:31: Yeaton Route: IVP, Drug form: SOLN, ONCE, Priority: STAT, Start date: 04/19/11 23:31:00, Stop date: 04/19/11 23:31:00 Sodium 2011-0 No Juan 1,000 mL, Memor ia Chloride 1-07 Keith Rate: l 0.9% 03:30: Yeaton 1,000 [place] (Bolus) IV 00 ml/hr, 1,000 mL Infuse [...] 0 No Juan 4 mg, Nirmal feliz 04-20 Keith Route: l 03:30: Yeaton IVP, [...] Phelps Daily, 255 l for 05:57: gm, [place] reconstitut 18 Substituti ion on Allowed, PDR/REC Phenergan 2010-04 Yes Mila 25 mg, 1 M emoria 25 mg oral 2-13 [place] Phelps tab, PO, l tablet 05:57: Q6H, PRN, Jorge Luis n 09 15 tab, Nausea, Substituti on Allowed Vicodin 2010-04 Yes Imla 1 tab, PO, M emoria 5/500 oral 2-13 Zay Phelps Q4-6H, l tablet 05:57: PRN, 24 [place] 05 tab, for Pain, Substituti on Allowed, Maintenanc e Sodium 2010-04 No Mila 1,000 mL, Mem oria Chloride 2-13 Zay Phelps Rate: l 0.9% 03:24: 1,000 [place] (Bolus) IV 00 ml/hr, 1,000 mL Infuse over: 1 hr, Route: IV, Total Volume: 1,000, Bolus Dose, Priority: STAT, Start date: 03/25/11 21:24:00, Duration: 1 doses or times, Stop date: 03/25/11 22:23:00 Insulin 2010-04 No Mila 10 unit, Mem oria regular 2-13 [place] Phelps 0.1 mL, l 03:16: Route: [place] 00 IVP, Drug form: SOLN, ONCE, Priority: [...] Zay Phelps Route: l 02:19: IVP, Drug Form: [...] 4 mg, 0.8 M emoria Sulfate 2-13 [place] Phelps mL, Route: l 02:19: IVP, Drug [place] form: INJ, ONCE, Priority: STAT, Start date: 03/25/11 20:19:00, Stop date: 03/25/11 20:19:00 nitroglycer 2010-04 No 0.4 mg, 1 M emoria in 0.4 mg 0-31 tab, SL, l sublingual 17:47: Q5Min, Eugenia nn tablet 03 PRN, as needed for chest pain, Substituti on Allowed aspirin 81 2010-04 Yes 1 tab, PO, M emoria mg tablet, 0-31 Daily, l chewable 17:29: tab, [place] 44 Substituti on Allowed, CHEWTAB Cipro 2010-04 No Dk 250 mg, 1 Memori a 0-31 Ari tab, l 16:00: [place] Route: PO, Herm ava Drug form: TAB, [id number], Start date: 02/11/11 11:00:00, Duration: 30 day, Stop date: 03/12/11 23:00:00 magnesium 2010-04 No Dakota 400 mg, 1 M emoria oxide 0-31 Minhvu Victoriano tab, l 14:00: [place] Route: PO, [place] Drug form: TAB, Daily, Start date: 02/11/11 9:00:00, Duration: 30 day, Stop date: 03/12/11 9:00:00 Lantus 2010-04 No Dk 70 unit, Memori a 0-31 Ari Route: l 14:00: Jonathan SUB-Q, [place] Drug form: SOLN, Daily, Start date: 02/11/11 [...] PO, Herm ava 00 Drug form: TAB, [id number], Start date: 02/11/11 3:00:00, Duration: 30 day, [...] Shauna mL, Route: l 05:37: IVP, Drug [place] 00 form: INJ, ONCE, Priority: STAT, Start date: 02/11/11 0:37:00, Stop date: 02/11/11 0:37:00 Visipaque 2010-04 No Peneolpe S 48,000 mg, Memoria 0-31 Shauna 150 mL, l 04:55: Route: IV, [place] Drug form: INJ, ONCE, Start date: 02/10/11 [...] Shauna Route: l SF 02:55: IVP, Drug Form: INJ, PRN, PRN Line Flush, Start date: 02/10/11 21:55:00, Duration: 30 day, Stop date: 03/12/11 20:54:00 aspirin 325 2010-04 No Penelope S 325 mg, M emoria mg tablet 0-31 Shauna Route: PO, l 02:47: Drug form: [place] 00 TAB, ONCE, Priority: STAT, Start date: 02/10/11 21:47:00, Stop date: 02/10/11 21:47:00 metoprolol 2010-04 No Penelope S 50 mg, Mem oria tartrate 0-31 Shauna Route: PO, l 02:47: Drug form: [place] 00 TAB, ONCE, (Hold if SBP < [...] 0-31 Shauna tab, l 02:47: Route: SL, [place] Drug form: TAB, Q5Min, PRN Chest Pain, (Hold if SBP < = 90 mmHg or if < = 100mmHg with symptomati c dizziness) , Start date: 02/10/11 21:47:00, Duration: 3 doses or times, Stop date: Limited # of times morphine 2010-04 No Penelope S 2 mg, Memori a Sulfate 0-31 Shauna Route: l 02:47: IVP, ONCE, [place] 00 Priority: STAT, Start date: 02/10/11 21:47:00, [...] Victoriano tab, l 02:00: [place] Route: PO, [place] Drug form: TAB, Bedtime, Start date: 01/15/11 [...] Q12H, l tablet 15:37: Edwards 30 tab, [place] 31 Substituti on Allowed, TAB aspirin 325 2010-04 Yes Giovani 9,750 mg, Memoria mg tablet, 0-04 Xiaoguang 30 tab, l enteric 15:37: Edwards PO, Daily, Herm ava coated 18 30 tab, Substituti on Allowed, ECTAB metoprolol 2010-04 No Giovani 12.5 mg, Me moria 0-04 Xiaoguang 0.5 tab, l 15:36: [place] Route: PO, [place] 00 Drug form: TAB, Q12H, Priority: NOW, Start date: 01/15/11 10:36:00, Duration: 30 day, Stop date: 02/14/11 9:00:00 Fioricet 2010-04 Yes Tajuddin 1 tab, PO, Memoria oral tablet 0-04 Qasimali Q4H, PRN, l 14:18: [place] 30 tab, [place] 21 Headache, Substituti on Allowed, Maintenanc e, [...] tablet 0-04 tab, PO, l 13:58: Bedtime, [place] 11 Substituti on Allowed ibuprofen 2010-04 No [...] day, Stop date: 02/13/11 9:00:00 Levemir 2010-04 No [place] 70 unit, Nirmal feliz FlexPen 0-04 Minhvu Victoriano 0.7 mL, l 02:00: [place] Route: [place] 00 SUB-Q, Drug form: INJ, Bedtime, Start date: 01/14/11 21:00:00, Duration: 30 day, Stop date: 02/12/11 21:00:00 Lantus 2010-04 Beth Duncan 70 unit, Memor ia 0-04 Minhvu Victoriano Route: l 02:00: [place] SUB-Q, [place] 00 Bedtime, Start date: 01/14/11 21:00:00, Duration: 30 day, Stop date: 02/12/11 21:00:00 glucagon 2010-04 Beth Duncan 1 mg, Memori a 0-04 Minhvu Victoriano Route: IM, l 00:22: [place] Drug form: [place] 00 PDR/INJ, PRN, PRN Blood Glucose Results, Start date: 01/14/11 19:22:00, Duration: 30 day, Stop date: 02/13/11 19:21:00 Insulin 2010-04 Beth Dakota 6 unit, Memor ia (Novolog) 0-04 Minhvu Victoriano 0.06 mL, l Sliding 00:22: [place] Route: [place] Scale - 00 SUB-Q, Very High Drug form: SOLN, Sliding Scale, PRN Blood Glucose Results, Start date: 01/14/11 19:22:00, Duration: 30 day, Stop date: 02/13/11 19:21:00 Dextrose 2010-04 Beth Dakota 25 gm, 50 Me moria 50% Syringe [...] en 0-04 Minhvu Victoriano tab, l 00:21: Rad[place] Route: PO, [place] 00 Drug form: TAB, Q4H, PRN Headache, [...] Victoriano tab, l 00:21: [place] Route: PO, Drug [...] Davis Route: PO, l 22:08: Drug Form: [place] 00 SUSP, ONCE, Routine, Start date: 01/14/11 17:08:00, Stop date: 01/14/11 17:08:00 NS (Bolus) 2010-04 No Moise G 1,000 mL, Memoria IV 1,000 mL 0-03 Davis Rate: l 22:07: 1,000 ml/hr, Infuse over: 1 hr, Route: IV, Total Volume: 1,000, Priority: STAT, Start date: 01/14/11 17:07:00, Duration: 1 doses or times, Stop date: 01/14/11 18:06:00, Bolus DoseBolus Dose Saline 2010-04 No Moise G 5 ml, Memoria Flush 0.9% 0-03 Davis Route: l 20:20: IVP, Drug [place] 00 Form: INJ, PRN, PRN Line Flush, Start date: 01/14/11 15:20:00, Duration: 30 day, Stop date: 02/13/11 15:19:00 ibuprofen Yes Sonal 1 tab, PO, Memoria 400 mg oral 910 Raulito Q4H, PRN, l tablet 18:32: 20 tab, [place] 59 Pain, Substituti on Allowed acetaminoph Yes Sonal 1 tab, PO, Memoria en-hydrocod 12-22 Raulito Q4-6H, l one 500 18:32: PRN, 20 [place] mg-5 mg 50 tab, Pain, oral tablet [...] Systolic (mm Hg) 2017-02-26 06:50:00 Nirmal rial [place] Diastolic (mm Hg) 2017-02-26 06:50:00 Mem orial [place] Respitory Rate 2017-02-26 06:50:00 Memori al [place] Temperature Oral (F) 2017-02-26 06:50:00 97.6 F [facility] [place] Heart Rate 2017-02-26 06:50:00 [facility] [place] Respitory Rate 2017-02-26 04:30:00 Memori al [place] Systolic (mm Hg) 2017-02-26 04:30:00 Nirmal rial [place] Diastolic (mm Hg) 2017-02-26 04:30:00 Mem orial [place] Heart Rate 2017-02-26 04:30:00 [facility] [place] Temperature Oral (F) 2017-02-26 00:55:00 98.8 F [facility] Weight 2017-02-26 00:55:00 [facility] BMI Calculated 2017-02-26 00:55:00 [facility] Height 2017-02-26 00:55:00 162.56 cm [facility] Systolic (mm Hg) 2017-02-26 00:55:00 [facility] [place] Diastolic (mm Hg) 2017-02-26 00:55:00 [facility] [place] Heart Rate 2017-02-26 00:55:00 [facility] [place] Respitory Rate 2017-02-26 00:55:00 [facility] Respitory Rate 2017-02-25 07:35:00 [facility] [place] Systolic (mm Hg) 2017-02-25 07:35:00 [facility] Diastolic (mm Hg) 2017-02-25 07:35:00 [facility] Temperature Oral (F) 2017-02-25 07:35:00 98.2 F [facility] [place] Heart Rate 2017-02-25 07:35:00 [facility] BMI Calculated 2017-02-25 05:05:00 [facility] Weight 2017-02-25 05:05:00 [facility] [place] Height 2017-02-25 05:05:00 162.56 cm [facility] [place] Heart Rate 2017-02-25 05:05:00 [facility] Respitory Rate 2017-02-25 05:05:00 [facility] [place] Temperature Oral (F) 2017-02-25 05:05:00 97.8 F [facility] Systolic (mm Hg) 2017-02-25 05:05:00 [facility] Diastolic (mm Hg) 2017-02-25 05:05:00 [facility] Weight 2017-02-25 04:55:00 [facility] Height 2017-02-25 04:55:00 167.64 cm [facility] Temperature Oral (F) 2017-02-25 04:55:00 97.8 F [facility] BMI Calculated 2017-02-25 04:55:00 [facility] Systolic (mm Hg) 2017-02-25 04:55:00 [facility] Diastolic (mm Hg) 2017-02-25 04:55:00 [facility] Respitory Rate 2017-02-25 04:55:00 [facility] Heart Rate 2017-02-25 04:55:00 [facility] Temperature Oral (F) 2017-01-26 16:47:00 98.5 F [facility] Heart Rate 2017-01-26 16:47:00 [facility] Respitory Rate 2017-01-26 16:47:00 [facility] Systolic (mm Hg) 2017-01-26 16:47:00 [facility] Diastolic (mm Hg) 2017-01-26 16:47:00 [facility] Heart Rate 2017-01-26 12:26:00 [facility] Respitory Rate 2017-01-26 12:26:00 [facility] Temperature Oral (F) 2017-01-26 12:26:00 98.4 F [facility] Systolic (mm Hg) 2017-01-26 12:26:00 [facility] Diastolic (mm Hg) 2017-01-26 12:26:00 [facility] Temperature Oral (F) 2017-01-26 09:50:00 98.1 F [facility] Heart Rate 2017-01-26 09:50:00 [facility] Systolic (mm Hg) 2017-01-26 09:50:00 [facility] Diastolic (mm Hg) 2017-01-26 09:50:00 [facility] Respitory Rate 2017-01-26 09:50:00 [facility] Height 2017-01-25 05:58:00 157.48 cm [facility] Weight 2017-01-25 05:58:00 [facility] BMI Calculated 2017-01-25 05:58:00 [facility] Weight 2017-01-25 02:01:00 [facility] BMI Calculated 2017-01-25 02:01:00 [facility] Height 2017-01-25 02:01:00 162.56 cm [facility] Systolic (mm Hg) 2016-12-27 06:03:00 [facility] Diastolic (mm Hg) 2016-12-27 06:03:00 [facility] Respitory Rate 2016-12-27 06:03:00 [facility] Heart Rate 2016-12-27 06:03:00 [facility] Temperature Oral (F) 2016-12-27 06:03:00 98.3 F [facility] Temperature Oral (F) 2016-12-27 04:22:00 98.4 F [facility] Respitory Rate 2016-12-27 04:22:00 [facility] Systolic (mm Hg) 2016-12-27 04:22:00 [facility] Diastolic (mm Hg) 2016-12-27 04:22:00 [facility] BMI Calculated 2016-12-27 04:22:00 [facility] Weight 2016-12-27 04:22:00 [facility] Heart Rate 2016-12-27 04:22:00 [facility] Height 2016-12-27 04:22:00 162.56 cm [facility] Height 2012-02-06 15:19:00 162.56 cm [facility] Weight 2012-02-06 15:19:00 [facility] Height 2011-11-29 02:35:00 162.56 cm [facility] Weight 2011-11-29 02:35:00 [facility] Height 2011-10-25 02:45:00 162.56 cm [facility] Weight 2011-10-25 02:45:00 [facility] Height 2011-05-23 04:48:00 162.56 cm [facility] Weight 2011-05-23 04:48:00 [facility] Temperature Oral (F) 2011-05-08 02:38:00 98.5 F [facility] Diastolic (mm Hg) 2011-05-08 02:38:00 [facility] Systolic (mm Hg) 2011-05-08 02:38:00 [facility] Heart Rate 2011-05-08 02:38:00 [facility] Respitory Rate 2011-05-08 02:38:00 [facility] Weight 2011-05-08 00:09:00 [facility] Height 2011-05-08 00:09:00 162.56 cm [facility] Temperature Oral (F) 2011-05-08 00:09:00 98.6 F [facility] Diastolic (mm Hg) 2011-05-08 00:09:00 [facility] Systolic (mm Hg) 2011-05-08 00:09:00 [facility] Heart Rate 2011-05-08 00:09:00 [facility] Respitory Rate 2011-05-08 00:09:00 [facility] Respitory Rate 2011-04-20 07:05:00 [facility] Heart Rate 2011-04-20 07:05:00 [facility] Diastolic (mm Hg) 2011-04-20 07:05:00 [facility] Systolic (mm Hg) 2011-04-20 07:05:00 [facility] Diastolic (mm Hg) 2011-04-20 06:01:00 [facility] Heart Rate 2011-04-20 06:01:00 [facility] Systolic (mm Hg) 2011-04-20 06:01:00 [facility] Respitory Rate 2011-04-20 06:01:00 [facility] Weight 2011-04-20 02:25:00 [facility] Systolic (mm Hg) 2011-04-20 02:25:00 [facility] Temperature Oral (F) 2011-04-20 02:25:00 98.0 F [facility] Respitory Rate 2011-04-20 02:25:00 [facility] Heart Rate 2011-04-20 02:25:00 [facility] Diastolic (mm Hg) 2011-04-20 02:25:00 [facility] Temperature Oral (F) 2011-03-26 06:05:00 98.0 F [facility] Respitory Rate 2011-03-26 06:05:00 [facility] Heart Rate 2011-03-26 06:05:00 [facility] Systolic (mm Hg) 2011-03-26 06:05:00 [facility] Diastolic (mm Hg) 2011-03-26 06:05:00 [facility] Height 2011-03-26 01:58:00 160.02 cm [facility] Weight 2011-03-26 01:58:00 [facility] Temperature Oral (F) 2011-03-26 01:58:00 99.0 F [facility] Diastolic (mm Hg) 2011-03-26 01:58:00 [facility] Systolic (mm Hg) 2011-03-26 01:58:00 [facility] Respitory Rate 2011-03-26 01:58:00 [facility] Heart Rate 2011-03-26 01:58:00 [facility] Diastolic (mm Hg) 2011-02-11 15:37:00 [facility] Respitory Rate 2011-02-11 15:37:00 [facility] Systolic (mm Hg) 2011-02-11 15:37:00 [facility] Heart Rate 2011-02-11 15:37:00 [facility] Temperature Oral (F) 2011-02-11 15:37:00 98.1 F [facility] Diastolic (mm Hg) 2011-02-11 11:53:00 [facility] Systolic (mm Hg) 2011-02-11 11:53:00 [facility] Temperature Oral (F) 2011-02-11 11:53:00 97.5 F [facility] Heart Rate 2011-02-11 11:53:00 [facility] Respitory Rate 2011-02-11 11:53:00 [facility] Height 2011-02-11 07:38:00 162.56 cm [facility] Weight 2011-02-11 07:38:00 [facility] Respitory Rate 2011-02-11 07:38:00 [facility] Temperature Oral (F) 2011-02-11 07:38:00 98.0 F [facility] Heart Rate 2011-02-11 07:38:00 [facility] Systolic (mm Hg) 2011-02-11 07:38:00 [facility] Diastolic (mm Hg) 2011-02-11 07:38:00 [facility] Weight 2011-02-11 02:32:00 [facility] Height 2011-02-11 02:32:00 162.56 cm [facility] Diastolic (mm Hg) 2011-01-15 16:44:00 [facility] Systolic (mm Hg) 2011-01-15 16:44:00 [facility] Temperature Oral (F) 2011-01-15 16:44:00 97.0 F [facility] Heart Rate 2011-01-15 16:44:00 [facility] Respitory Rate 2011-01-15 16:44:00 [facility] Temperature Oral (F) 2011-01-15 12:18:00 97.2 F [facility] Respitory Rate 2011-01-15 12:18:00 [facility] Heart Rate 2011-01-15 12:18:00 [facility] Diastolic (mm Hg) 2011-01-15 12:18:00 [facility] Systolic (mm Hg) 2011-01-15 12:18:00 [facility] Respitory Rate 2011-01-15 09:30:00 [facility] Systolic (mm Hg) 2011-01-15 09:30:00 [facility] Heart Rate 2011-01-15 09:30:00 [facility] Temperature Oral (F) 2011-01-15 09:30:00 97.9 F [facility] Diastolic (mm Hg) 2011-01-15 09:30:00 [facility] Height 2011-01-15 01:35:00 162.56 cm [facility] Weight 2011-01-15 01:35:00 [facility] Height 2011-01-14 20:07:00 162.56 cm [facility] Weight 2011-01-14 20:07:00 [facility] Systolic (mm Hg) 2010-12-22 18:51:00 [facility] Diastolic (mm Hg) 2010-12-22 18:51:00 [facility] Peripheral Pulse Rate 2010-12-22 18:51:00 [facility] Respitory Rate 2010-12-22 18:51:00 [facility] Height 2010-12-22 16:57:00 162.56 cm [facility] Weight 2010-12-22 16:57:00 [facility] Temperature Oral (F) 2010-12-22 16:57:00 98.2 F [facility] Respitory Rate 2010-12-22 16:57:00 [facility] Peripheral Pulse Rate 2010-12-22 16:57:00 [facility] Diastolic (mm Hg) 2010-12-22 16:57:00 [facility] Systolic (mm Hg) 2010-12-22 16:57:00 [facility] Procedures Procedure Date / Time Performed Performing Clinician Sour e Appendectomy [facility] Cholecystectomy [facility] Partial hysterectomy [facility] Plan of Care Planned Activity Planned Date Details Comments Source Future Scheduled 2019-12-[address] [facility] - Test 00:00:00 (#1) [code = [facility] INFLUENZA VACCINE (#1)] Future Scheduled [address] [facility] Test 00:00:00 (procedure) [code = [facility] 30673495] Future Scheduled [address] [facility] 00:00:00 malignant neoplasm [facility] enter of cervix (procedure) [code = 733101214] Future Scheduled [address] [facility] - Test 00:00:00 malignant neoplasm [facility] enter of breast (procedure) [code = 021536121] Future Scheduled [address] [facility] - Test 00:00:00 malignant neoplasm Medical [facility] enter of colon (procedure) [code = 956936598] Encounters Start End Encounter Admission Attending Care Care Encounter Source Date/Time Date/Time Type Type Clinicians Facility Department ID 2018-11-26 2018-11-26 Emergency [facility] [id number] 11:32:46 15:11:00 Edgard Medley [id number] [place] [id number] [place] [id number] 2018-11-26 2018-11-26 Orders Doctor RASHID [id number] 00:00:00 00:00:00 Only Unassigned, [place] [id number] [facility] [id number] 2017-02-25 2017-02-26 Outpatient Quezada, 2.16.840. 2.16.840.1. 4 [id number] 18:38:00 00:55:00 Rudolph [id number] 03 Mateo 3.615.120 5.120 2017-02-24 2017-02-25 Outpatient Quezada, 2.16.840. 2.16.840.1. 4 [id number] 22:49:00 01:35:00 Rudolph [id number] 02 Mateo 3.615.120 5.120 2017-01-24 2017-01-26 Outpatient Kayla, 2.16.840. 2.16.840.1 . [id number] 20:53:00 14:35:00 Greg Giron [id number] 01 [id number] 5.120 2016-12-26 2016-12-27 Outpatient Davis, 2.16.840. 2.16.840.1. 4 [id number] 23:03:00 01:05:00 Moise Rojas [id number] 3.615.120 5.120 Results Test Description Test Time Test Comments Results Result Comments Source POCT-GLUCOSE METER 2017-10-07 11:53:00 Test Item Value Reference Range Interpretation Comme nts POC-GLUCOSE METER (BEAKER) (test 277 mg/dL 70-110 H TESTED AT [address] POINT code = 1538) [address] [facility] [address] POCT-GLUCOSE [id number] 11:53:00 Test Item Value Reference Range Interpretation Comments POC-GLUCOSE METER 411 mg/dL 70-110 HH TESTED AT [address] (BEBANNER) (test code [address] [facility] [place] = 1538) [address] RAD, SPINE, CERVICAL, 2 OR 3 [id number] 23:46:00Reason for exam:->neck painFINAL REPORT RAD, SPINE, [...] MDReport Verified Date/Time: 10/06/2017 23:46:30 Reading Location: [address] Transitional Reading Room CT, SPINE, CERVICAL, [...] MDReport Verified Date/Time: 10/06/2017 23:44:40 Reading Location: [address] Transitional Reading Room CT, BRAIN, WITHOUT [...] MRI for further evaluation. Signed: Carla Oden Verified Date/Time: 10/06/2017 23:24:44 Reading Location: [address] Reading Room TROPONIN I 2017-10-06 22:56:00 [...] acute neurological disease, and persistent tachyarrhythmia.COMPREHENSIVE METABOLIC [id number] 22:50:00 Test Item Value Reference Range Interpretation [...] S NOT APPLICABLE FOR DIALYSIS PATIEN TS. [id number] 22:42:00 Test Item Value Reference Range Interpretation Comments AMYLASE (BEAKER) (test code = 349) 58 U/L 30-110 CBC W/PLT COUNT & AUTO [id number] 22:22:00 Test Item Value Reference Range Interpretation [...] 0.00-0.20 (test code = 417) URINALYSIS W/ [id number] 22:09:00 Test Item Value Reference Range Interpretation [...] 1663) SOURCE(BEAKER) (test code = 2795) POCT-GLUCOSE [id number] 07:19:00 Test Item Value Reference Range Interpretation Comments POC-GLUCOSE METER 241 mg/dL 70-110 [address] (test code [address] [facility] [place] = 1538) [address] CT, [id number] 19:16:00FINAL REPORT CT OF THE ABDOMEN AND [...] MDReport Verified Date/Time: 09/22/2017 19:16:29 Reading Location: [address] Consult Reading Room BASI METABOLIC [id number] 17:37:00 Test Item Value Reference Range Interpretation [...] NOT APPLICABLE FOR DIALYSIS PATIEN TS. TROPONIN [id number] 17:07:00 Test Item Value Reference Range Interpretation [...] (test code = 749) 26 U/L 6-51 [id number] 16:51:00 Test Item Value Reference Range Interpretation Comments AMYLASE (BEAKER) (test 32 U/L 30-110 Speci men markedly code = 349) hemolyzed URINALYSIS W/ [id number] 16:21:00 Test Item Value Reference Range Interpretation [...] = 2795) CBC W/PLT COUNT & AUTO [id number] 16:15:00 Test Item Value Reference Range Interpretation [...] L 0.00-0.20 (test code = 417) POCT-GLUCOSE [id number] 15:36:00 Test Item Value Reference Range Interpretation Comments POC-GLUCOSE METER 284 mg/dL 70-110 H TESTED AT [address] (BEAKER) (test code [address] [facility] [place] = 1538) [address] CT, [id number] 15:32:00Reason for exam:->LLQ ABD PAINIs the patient [...] MDReport Verified Date/Time: 07/07/2017 15:32:20 Reading Location: [facility] B1 C013Y CT Body Reading Room LIPASE 2017-07-07 14:41:00 Test Item Value Reference Range Interpretation Comments LIPASE (BEAKER) (test code = 749) 32 U/L 6-51 COMPREHENSIVE METABOLIC [id number] 14:40:00 Test Item Value Reference Range Interpretation [...] NOT APPLICABLE FOR DIALYSIS PATIEN TS. POCT-GLUCOSE [id number] 14:10:00 Test Item Value Reference Range Interpretation Comments POC-GLUCOSE METER 352 mg/dL 70-110 H TESTED AT [address] (BEAKER) (test code [address] [facility] [place] = 1538) [address] CBC W/PLT COUNT & AUTO [id number] 13:30:00 Test Item Value Reference Range Interpretation [...] 0.00-0.20 (test code = 417) URINALYSIS W/ [id number] 13:01:00 Test Item Value Reference Range Interpretation [...] 1663) SOURCE(BEAKER) (test code = 2795) KETONE, [id number] 12:58:00 Test Item Value Reference Range Interpretation Comments KETONES, BLOOD (BEAKER) (test code 0.1 mmol/L <0.4 = 1103) BLOOD GAS, [id number] 12:48:00 Test Item Value Reference Range Interpretation [...] (test code = 1819) 37.0 % POCT-GLUCOSE [id number] 12:04:00 Test Item Value Reference Range Interpretation Comments POC-GLUCOSE METER > mg/dL 70-110 HH OUTSIDE ME ASURING (BEAKER) (test [facility] = 1538) [facility] [address] BACTERIAL - [id number] 03:02:00Negative (02/25/17 9:02 PM)[facility] [id number] 03:02:00 Test Item Value Reference Range Interpretation Comments Tube Num CSF (test code = Tube Num CSF) 1 1 [facility] [id number] 03:02:00Clear (02/25/17 9:02 PM)[facility] [id number] 03:02:00Colorless (02/25/17 9:02 PM)[facility] [id number] 03:02:00Colorless (02/25/17 9:02 PM)[facility] [id number] 03:02:002[facility] OHOJZE5224-84-20 03:02:001[facility] NMOBVW8096-76-03 03:02:001[facility] [id number] 03:02:002[facility] QCMINU4587-04-97 03:02:00 Colorless (02/25/17 9:02 PM)[facility] [id number] 03:02:00Clear (02/25/17 9:02 PM)[facility] [id number] 03:02:00 Test Item Value Reference Range Interpretation Comments Tube Num CSF (test code = Tube Num CSF) 4 1 [facility] [id number] 03:02:00Colorless (02/25/17 9:02 PM) [facility] [id number] 03:02:25183Juglzsvl HermannBODY FLUIDS 2017-02-26 03:02:0055[facility]annFUNGAL - [id number] 03:02:00 Negative (02/25/17 9:02 PM)[facility] KzkxywqUIJPLASPOM7071-47-92 03:02:00Non Reactive (02/25/17 9:02 PM)[facility]annMOLECULAR [id number] 03:02:00Negative 2(02/25/17 9:02 PM)[facility]annMOLECULAR DIAGNOSTIC 2017-02-26 03:02:00Negative 1(02/25/17 9:02 PM)[facility]annVIRAL - SEROLOGY 2017-02-26 03:02:00Negative (02/25/17 9:02 PM)[facility]annCHEM PANEL 2017-02-26 01:42:000.9[facility]annCHEM [id number] 01:42:0023[facility]annCHEM ZVAUM1187-48-12 01:42:004.3[facility]annCHE[facility] CDKYM4468-10-02 01:42:0011.3[facility]annCHEM GHAGG2192-07-25 01:42:04644Jwkyahtn HermannCHEM YSWZW3689-15-46 01:42:000.3[facility]annCHE[facility] [id number] 01:42:0016 [facility]CHE[facility] ZFTMI8528-76-38 01:42:0017[facility]annCHEM PANEL 2017-02-26 01:42:008.2[facility]annCHE[facility] [id number] 01:42:004.3[facility]annCHE[facility] STMUY7062-60-81 01:42:92594Teetgimx HermannCHEM XSGAK4040-02-13 01:42:000.70[facility]annCHE[facility] CCVTO7876-45-65 01:42:52191Pfbxnylq HermannCHEM KALPV1935-15-65 01:42:008.9[facility]annCHE[facility] PAOVK4464-60-21 01:42:0097 [facility]CHE[facility] VZMSY6221-64-83 01:42:0026[facility]annCHEM PANEL 2017-02-26 01:42:47191Jccablsx HermannCHEM [id number] 01:42:0016[facility]annCHEM AZZLM4235-61-65 01:42:003.9[facility]annCHEM WOEBS0710-43-23 01:42:001.8[facility] WgdfmgxTNAXRJGMNG1925-27-44 01:42:13658Vszspbsw [place] KTUVCUBNWS3127-97-67 01:42:0082.2[facility] OgdbucxBDQPRFCFDC5834-15-62 01:42:00 37.1[facility] ZoeepzkSHCOBXWSBF8414-20-31 01:42:007.4[facility] HermannHEMATOLOGY 2017-02-26 01:42:0014.1[facility] BzqwvswNVZHXLQHUI0484-37-30 01:42:00 Test Item Value Reference Range Interpretation Comments MCH (test code = MCH) 27.6 pg 27.0-31.0 [facility] KdnswliYTCYDDNYNC1039-93-52 01:42:0033.6[facility]annHEMATOLOGY 2017-02-26 01:42:004.52[facility] AicscipSNHALPBNOR8486-58-25 01:42:0012.5[facility] HbzkoegRLIJNDNTNE7749-20-01 01:42:007.1[facility] WuiupovCXRXTGWVAF2080-88-09 01:42:000.8[facility] FerzxzoMEYIDOZQWU2320-52-23 01:42:002.8[facility] YITCEFWMAO0725-72-13 01:42:003.8[facility] YetpidqXSRHFZVKMD1100-89-48 01:42:000.4 [facility] WsrowqnLPHAEFZKBL9117-86-79 01:42:0053.4[facility]annHEMATOLOGY 2017-02-26 01:42:0039.1[facility] KnvgykbYSJLYSLASD5715-95-36 01:42:001.4[facility] ZafgvnbXQUWJKYTSY8348-98-32 01:42:005.3[facility] AqrkembIWOROFTMPI2004-09-87 01:42:000.1[facility] KizdftqXNKWDYQJUK7738-40-84 01:42:000.1[facility]annURINE AND IGTQT9068-50-76 01:42:000.2[facility]UR[facility] AND FGTRP9010-38-88 01:42:00Negative (02/25/17 7:42 PM)[facility] AND [id number] 01:42:00Negative *NA*(02/25/17 7:42 PM)[facility] ULZLG7660-17-50 01:42:00Negative *NA*(02/25/17 7:42 PM)[facility] HYSKO3815-67-73 01:42:00Negative (02/25/17 7:42 PM)[facility] AND TNBXY1635-76-95 01:42:00Negative (02/25/17 7:42 PM)[facility] AND HAYLO0315-12-70 01:42:00Negative (02/25/17 7:42 PM)[facility] AND [id number] 01:42:00 Test Item Value Reference Range Interpretation Comments UA pH (test code = UA pH) 6.0 1 5.0-8.0 [facility] AND [id number] 01:42:00 Test Item Value Reference Range Interpretation Comments UA Spec Grav (test code = UA Spec 1.010 1 Grav) [facility] [id number] 01:42:00Yellow *NA*(02/25/17 7:42 PM) [facility] AND [id number] 01:42:00Slight Cloudy (02/25/17 7:42 PM)[facility]annVIRAL - SVJOMWJW6704-23-63 01:42:00Negative (02/25/17 7:42 PM)[facility]annVIRAL - GBTPZXQU5882-92-82 01:42:00Negative (02/25/17 7:42 PM)[facility]annCHEM TGNXJ9010-96-12 09:02:90018Bsiarvil HermannCHEM PANEL 2017-01-26 09:02:000.2[facility] HermannCHEM QTDGF8200-40-45 09:02:49442Myawjdup HermannCHEM OSRZJ9168-89-80 09:02:0012[facility]annCHEM RIZSN6317-25-23 09:02:003.3[facility]annCHEM BTBPH3392-91-32 09:02:002.4[facility] HermannCHEM EITKI8788-86-58 09:02:005.7[facility] HermannCHEM YHDGE1779-54-32 09:02:009.7 [facility]annCHEM HTSNO2151-70-38 09:02:53234Xgstcgey HermannCHEM PANEL 2017-01-26 09:02:007.4[facility] HermannCHEM IOGXA8393-97-93 09:02:000.7[facility]annCHEM HZIHT6193-70-35 09:02:000.40[facility]annCHEM QBHSD2890-09-89 09:02:005[facility] HermannCHEM YONAY9472-62-15 09:02:0037[facility] HermannCHEM EMHPT5740-19-18 09:02:0044[facility] HermannCHEM BXMGL6439-87-32 09:02:003.7 [facility]annCHEM WQLVJ7088-47-89 09:02:24773Dbamzfec HermannCHEM PANEL 2017-01-26 09:02:0025[facility] HermannCHEM WWPPD1894-87-33 09:02:03129Vwlfhroo HermannCARDIAC OXTUQAD7078-16-52 22:26:00<0.02[facility] HermannPARATHYROID KRSYUHF8936-73-88 22:26:000.99[facility] HermannPARATHYROID TMQKXBA5188-59-11 22:26:001.01[facility]annCHEM XDUXX6709-33-53 20:00:002.6[facility]annCHEM VCLWP8500-01-52 20:00:28215Qoliihxo HermannCHEM ZZZYP9719-40-25 20:00:000.50 [facility]annCHEM YQTVN3198-49-94 20:00:23367Nhnqmofv HermannCHEM PANEL 2017-01-25 20:00:003.6[facility]annCHEM FNXTM0169-30-07 20:00:0025[facility] HermannCHEM ADZFY5673-00-14 20:00:33522Xvsdiryp HermannCHEM DGZTX2590-49-54 20:00:008.6[facility]annCHEM IKJES3846-35-68 20:00:006.9[facility]annCHEM HLXUF7915-84-15 20:00:52121Yzbqswaj HermannCHEM ABPAY8656-08-31 20:00:008 [facility]annCHEM FNKXT0590-48-82 08:54:002.7[facility] HermannCHEM PANEL 2017-01-25 08:54:00378Mqzzmkdz HermannCHEM RNOOK3096-42-89 08:54:000.60[facility] HermannCHEM FBMIL3847-62-29 08:54:009[facility]annCHEM ZAZBX0276-80-41 08:54:53789Ctvpfkfp HermannCHEM ZRUJB8150-33-18 08:54:0012.5[facility] HermannCHEM RFTRJ1988-40-64 08:54:003.5[facility] HermannCHEM XAGHW2099-54-96 08:54:95098 [facility]annCHEM YZGVY7889-96-78 08:54:0023[facility] HermannCHEM PANEL 2017-01-25 08:54:007.1[facility] HermannCHEM POSJS6131-83-69 08:54:82372Tsmcpynn HermannCHEM RNQSM2074-21-52 08:54:001.7[facility] CbwxsmiZZMRIPKTFE9950-89-06 08:54:007.4[facility] ZmamzwdZYLBWVCSEP2956-95-25 08:54:0013.6[facility] NQUGQGXEDB6498-08-10 08:54:15299Cprhwlwa TcvzsceCGERKCKUAK6283-21-05 08:54:00 33.4[facility] CdektbuDEZXEAHIZV2539-69-48 08:54:0082.5[facility] 2017-01-25 08:54:00 Test Item Value Reference Range Interpretation Comments MCH (test code = MCH) 27.6 pg 27.0-31.0 [facility] KgqubuqZQAUJBIBQO8807-06-93 08:54:0010.7[facility]annHE[facility]OLOGY 2017-01-25 08:54:0032.0[facility] GcpasgzNCHNKOZSFX6116-50-24 08:54:005.5[facility] ZjztydxPNXFVGBQUY0139-93-31 08:54:003.88[facility] IiphtacFFKYIHETAZ2384-32-33 08:54:007.2[facility] EhovgwbCCOZFLEVXJ1328-77-00 08:54:000.4[facility] KWMUBGTRRD6041-46-86 08:54:003.0[facility] JnenlhpMFWHETPCMZ9673-77-33 08:54:002.0 [facility] XpppkcgPWWAMLFWRZ1062-98-88 08:54:000.9[facility]OLOGY 2017-01-25 08:54:000.6[facility] OcmpurzIJENBJIKBP7983-73-42 08:54:0036.3[facility] BfratueABSCLNNQAU0017-45-90 08:54:0055.0[facility] STOOL 2017-01-25 04:54:00Negative (01/24/17 11:54 PM)[facility] STOOL 2017-01-25 04:54:00Positive *ABN*(01/24/17 11:54 PM)[facility] WBMPY4059-72-78 04:54:00Negative (01/24/17 11:54 PM)[facility] SNWBF3204-98-10 04:54:00Negative *NA*(01/24/17 11:54 PM)[facility] ASWMV9427-61-92 04:54:00Negative (01/24/17 11:54 PM)[facility] JHBZY1048-48-66 04:54:000.2[facility] BTKBZ8337-30-55 04:54:00Negative *NA*(01/24/17 11:54 PM)[facility] STOOL 2017-01-25 04:54:00 Test Item Value Reference Range Interpretation Comments UA pH (test code = UA pH) 5.5 1 5.0-8.0 [facility] RKWAX1440-17-80 04:54:00<=1.005 *NA*(01/24/17 11:54 PM)[facility] PGKSP0839-39-75 04:54:00Yellow *NA*(01/24/17 11:54 PM)[facility] DBLCW7515-61-56 04:54:00Clear (01/24/17 11:54 PM) [facility]CARDIAC VLQGZUG5851-43-12 02:44:0062[facility]ann[facility]AC PJCZVBK9314-84-27 02:44:00<1.0[facility]annCARDIAC SDEPPMZ4067-41-14 02:44:00<0.02[facility]annCARDIAC KFVBGWI8727-07-13 02:44:00<1.6 [facility]annCHEM MDFFN4425-84-56 02:44:0014[facility]annCHEM PANEL 2017-01-25 02:44:000.5[facility]annCHEM COSSQ2939-83-06 02:44:0037[facility]annCHEM ZCAPO8785-03-10 02:44:69638Ufzmhsum HermannCHEM JAITU6693-93-39 02:44:000.7[facility]annCHEM KWGBZ6521-83-30 02:44:004.7[facility]annCHEM RBAJJ4383-11-04 02:44:003.5[facility]annCHEM RNADK4900-01-65 02:44:0016 [facility]annCHE[facility] ZLPXC7307-83-05 02:44:008.2[facility]annCHEM PANEL 2017-01-25 02:44:65004Kvbyoqpk FohnglaYPANZPWBIO3350-83-34 02:44:0013.7[facility] ZwmpyafTNTELUHPSO2008-83-28 02:44:0041.6[facility] PaxcoquFSDBWMTTBC7164-80-99 02:44:0083.6[facility] RrlhtuzHCREDVKHAO6773-42-17 02:44:00 Test Item Value Reference Range Interpretation Comments MCH (test code = MCH) 27.5 pg 27.0-31.0 [facility] CyzmhzzZNNLJWWVMZ3739-55-10 02:44:0032.9[facility]annHEMATOLOGY 2017-01-25 02:44:0013.6[facility] DsoyybnNPKGEYQVFY9952-25-87 02:44:93306Diwphtvc YetapjiUCUOTKQGLN9077-08-74 02:44:008.1[facility] SvnchojHDJJVCPNCE3396-89-76 02:44:005.8[facility] ZehfxugDPKZZJRAFM9999-90-91 02:44:004.97[facility] Jona UPQFYSBDFA0159-83-63 02:44:000.4[facility] WgkpqgyFRNZIDYGIN6552-13-75 02:44:000.7 [facility] CoisnqhSOFHOTPJEC1551-61-67 02:44:003.5[facility] [facility] 2017-01-25 02:44:007.1[facility] UmprgqsNJQVMXLRLE8066-89-83 02:44:000.6[facility] YrmoktiDNEPHBFWFL2347-32-54 02:44:001.8[facility] DrnpputDHDLSFESBM5851-67-23 02:44:0059.9[facility] IpiivdePLVLCHQGUF4019-21-53 02:44:0031.7[facility] [place] URINE BGEWINX8330-04-87 09:22:00 Test Item Value Reference Range Interpretation [...] S Sulfamethoxazole (test code = 47) POCT-GLUCOSE [id number] 23:15:00 Test Item Value Reference Range Interpretation Comments POC-GLUCOSE METER 227 mg/dL 70-110 H TESTED AT [address] ([facility]) (test code [facility] [place] = 1538) [address] URINALYSIS W/ [id number] 22:36:00 Test Item Value Reference Range Interpretation [...] 1663) SOURCE(BEAKER) (test code = 2795) KETONE, [id number] 22:32:00 Test Item Value Reference Range Interpretation Comments KETONES, BLOOD (BEAKER) (test code 0.6 mmol/L <0.4 H = 1103) BLOOD GAS, [id number] 22:30:00 Test Item Value Reference Range Interpretation [...] (test code = 1819) 21.0 % SCREEN, [id number] 22:29:00 Test Item Value Reference Range Interpretation Comments TEST URINE (BEAKER) (test Negative code = 583) TROPONIN [id number] 21:42:00 Test Item Value Reference Range Interpretation [...] CK-MB Reference Range:<5 Normal5-10 Borderline>10 AbnormalCOMPREHENSIVE METABOLIC [id number] 21:34:00 Test Item Value Reference Range Interpretation [...] S NOT APPLICABLE FOR DIALYSIS PATIEN TS. [id number] 21:32:00 Test Item Value Reference Range Interpretation Comments LIPASE (BEAKER) (test code = 749) 28 U/L 6-51 CBC W/PLT COUNT & AUTO OKQOPITJDZUT3437-04-87 20:55:00 Test Item Value Reference Range Interpretation [...] NEUTROPHILS ABSOLUTE COUNT 3.70 K/ L 1.80-8.00 ([facility]) (test code = 670) LYMPHOCYTES ABSOLUTE COUNT 2.30 K/ L 1.48-4.50 (BEAKER) (test code = 414) MONOCYTES ABSOLUTE COUNT (BEAKER) 0.40 K/ L 0.00-1.30 (test code = 415) EOSINOPHILS ABSOLUTE COUNT 0.20 K/ L 0.00-0.50 (BEAKER) (test code = 416) BASOPHILS ABSOLUTE COUNT (BEAKER) 0.00 K/ L 0.00-0.20 (test code = 417) POCT-GLUCOSE [id number] 20:56:00 Test Item Value Reference Range Interpretation Comments POC-GLUCOSE METER 446 mg/dL 70-110 Notified R Diana DALTON/TESTED AT ([facility]) (test code [address] [place] = 1538) [address] [facility] [address] BEDSIDE GLUCOSE ZCUMZTA0802-82-01 15:13:28666Qhntbtqe HermannBEDSIDE GLUCOSE HVBJALZ4741-55-10 04:18:07944Rapthlar WhnufkiIADNHYBFD7042-89-04 03:05:000.14 [facility] SzwifzaKDDWJJEEU5407-85-10 03:05:008[facility] YyohrsxDZBFYETNQ0608-58-67 03:05:000.emorial RlqrhqoSAMYCFLAU1977-12-57 03:05:0027[facility] LSFTVWBRO8339-13-36 03:05:0013.2[facility] JienojcMNINDBJPD4741-50-73 03:05:008.8 [facility] IohocbcGWOFSENOH2292-25-32 03:05:007.6[facility] HermannCHEMISTRY 2011-11-29 03:05:0016[facility] LdozdeoGNIWYKENW0582-76-41 03:05:003.8[facility] IgflsskGZEHXMDNZ3007-57-50 03:05:003.8[facility] WrtuvbaNZHCKLVAO0935-11-12 03:05:001.0[facility] NscrzltWQVMLJPXD9292-36-28 03:05:73340Timyztvd [place] YMFCVNDEQ2515-59-50 03:05:0013[facility] LronwyjNMCEVZGNG3291-64-35 03:05:22737 [facility] JaqbwubENBXXYXBW2215-73-92 03:05:0098[facility] HermannCHEMISTRY 2011-11-29 03:05:000.7[facility] LtmundmGDVDLYOEA5523-48-23 03:05:0011[facility] XldmkphOEQXOBXXM5720-72-14 03:05:004.2[facility] IaaoebaHZAIYYNXY9482-05-45 03:05:13520Mqwylvjr JlaygnwQKECZHDYMW5125-77-69 03:05:004.41[facility] EHMXVOZOWA4518-12-23 03:05:005.7[facility] LqacoqbWMWSZRVIIK6270-39-10 03:05:00 33.2[facility] ExjcueyNFVIOXHMXH2686-84-46 03:05:0012.9[facility] HermannHEMATOLOGY 2011-11-29 03:05:0013.8[facility] CahhecdUEVEQOWLEM5642-67-28 03:05:0088.4[facility] SqtawymEKDULQZXHF1127-30-24 03:05:00 Test Item Value Reference Range Interpretation Comments MCH (test code = MCH) 29.3 pg 27.0-31.0 N [facility] BxdvqxyYSZDSUKTDT8195-28-66 03:05:0038.9[facility]annHEMATOLOGY 2011-11-29 03:05:007.5[facility] TozgoshVYDTKZWFOP2651-46-54 03:05:13779Wgijvxid GdxhncdQRHGVRWJXC3800-14-86 03:05:0057.5[facility] KmqwvdhDODBYHKOIC2148-26-71 03:05:000.5[facility] PlzqxxvBVDBJRXUQR5401-78-79 03:05:001.5[facility] OVVUUGUMFR4815-43-51 03:05:005.3[facility] NjylintOYSCKRVIQZ9712-50-09 03:05:00 35.2[facility] MszpifdNEROMHTZPE2164-30-89 03:05:002.0[facility]annHEMATOLOGY 2011-11-29 03:05:003.3[facility] HrgodokIFRHDNYVBS9997-57-21 03:05:000.1[facility] XddqrlsQDSBRJIAJJ5667-97-98 03:05:000.3[facility] FcqhufwVEJGRGLLHD0161-28-00 03:05:000.0[facility] TtklowgLVXMMFZUNF5982-21-80 03:05:00 Test Item Value Reference Range Interpretation Comments UA Spec Grav (test code = UA Spec 1.010 1 N Grav) [facility] LrmpafjTEWOCAEOLS0201-23-18 03:05:00 Test Item Value Reference Range Interpretation Comments UA pH (test code = UA pH) 5.5 1 5.0-8.0 N [facility] JuclnkaVTGQBPAFUP6955-27-87 03:05:00Yellow *NA*(11/28/2011 22:05:00) [facility] LhywfnzJEUUCAOOEI9980-47-51 03:05:00Clear (11/28/2011 22:05:00)[facility] VczpllvYRTSKPLQEK3438-98-37 03:05:00Negative (11/28/2011 22:05:00)[facility] QicwdyvUAFWNCTCVG6664-43-88 03:05:00Negative (11/28/2011 22:05:00)[facility] OghijrkFOTVHQNSTI4301-74-34 03:05:000.2[facility] ZvpyytsATMMRRBQDO1552-67-15 03:05:00>=1000 mg/dL *ABN*(11/28/2011 22:05:00)[facility] HermannURINALYSIS 2011-11-29 03:05:00Negative mg/dL *NA*(11/28/2011 22:05:00)[facility] MDMWTMMPDU6073-96-72 03:05:00Negative mg/dL (11/28/2011 22:05:00)[facility] ZnqalcfDSNCHJOPSY2071-30-25 03:05:00Negative (11/28/2011 22:05:00)[facility] CwzxsglFVHKCSDDYI5168-73-87 03:05:00Negative *NA*(11/28/2011 22:05:00)[facility] KyvarqxERUXGJYXUY4127-45-73 03:05:00Rare /LPF (11/28/2011 22:05:00)[facility] NcfubzlCKRVCEQNKY3749-53-76 03:05:00Occasional /HPF (11/28/2011 22:05:00) [facility] XnketjbUKQISGOPYW6556-17-46 03:05:000-2 /HPF (11/28/2011 22:05:00) [facility] IywgaiwRXEOBIEMFX7207-46-95 03:05:000-2 /HPF (11/28/2011 22:05:00) [facility] BpbnhliPLRJCVBWJC3483-13-85 03:05:00Performed (11/28/2011 22:05:00) [facility]annBEDSIDE GLUCOSE LHTELRC7766-52-81 02:45:00>400[facility]annBEDSIDE GLUCOSE NDHPLTS1181-01-16 06:10:55230Mwtkeivr HermannBEDSIDE GLUCOSE SAKABCP3299-63-73 05:04:0094[facility] YmnaqhqSNGYSLIDJ9386-64-32 03:06:00 72[facility] JcbuauqRSPNSEZMP8766-87-32 03:06:0040[facility] HermannCHEMISTRY 2011-10-25 03:06:007.42[facility] NguqknsEUXRCAMMA0204-31-02 03:06:000.0[facility] BdqvwnfXFHELAQTI3871-70-79 03:06:00Rm Air (10/24/2011 22:06:00)[facility] GOFOMOKWL6107-15-22 03:06:0095.0[facility] TttiwdxNKQKNNIZP9885-86-03 03:06:001 [facility] TabswdfURWBXEBDQ5904-96-14 03:06:0026[facility] HermannCHEMISTRY 2011-10-25 03:05:98711Trybsjoh CyzynioXNFRBXWYW8165-89-14 03:05:90630Antbmdwy GyznpmsMEUZNSVHD6062-76-29 03:05:0019[facility] MrsbaebFGXBPFMSX5475-32-47 03:05:008.4[facility] VvbvznuUDSLNWRXF6545-51-56 03:05:11669Xhjoguoc [place] PBRZUILQG0652-95-85 03:05:45379Bvnpduhc VpdkziiGDKEDMEGH8331-24-52 03:05:003.8 [facility] AcxsgdiFEXQPKEDY4290-76-75 03:05:003.7[facility] HermannCHEMISTRY 2011-10-25 03:05:0027[facility] JjjedsmREXFKPDBZ7563-82-87 03:05:0012.2[facility] BzncbmkBQBNORPMQ6006-79-42 03:05:004.2[facility] PdgrqxvKTDMDWXIV7804-70-50 03:05:000.8[facility] FnbueaaUFCTDSCQD6665-48-30 03:05:73661Csiwieyo [place] FXFZMTIUQ2343-50-01 03:05:0024[facility] UstqeacIPXJIQHJJ1340-66-23 03:05:007.5 [facility] HrzxisfNOMRQLLHL9038-01-34 03:05:0010[facility] HermannCHEMISTRY 2011-10-25 03:05:93305Brfkfscs KaohtmaOXIKNVFVA7112-16-96 03:05:000.3[facility] AakizdhOHFKNJXXC4164-12-52 03:05:001.0[facility] CktznjmHNAWEKECA9263-41-15 03:05:0017[facility] IwqvxmwOKWBYYUVC1423-25-43 03:05:000.22[facility] JLWUOIGWQZ1496-52-09 03:05:000.1[facility] YiobjjdPWMGIYDZEN8916-36-15 03:05:002.0 [facility] VuluasrSQAFFPQERA6759-06-77 03:05:000.0[facility] HermannHEMATOLOGY 2011-10-25 03:05:000.4[facility] HncfjmhRJLGKINZUJ4218-44-17 03:05:0029.4[facility] PsnlbqlNGXNGJEWYP7338-57-92 03:05:004.3[facility] MtociaoNRVISILFET7314-92-89 03:05:005.7[facility] EipdfqyKQIKHTWUNW0450-88-92 03:05:000.4[facility] IOTHXGTXZR2071-24-13 03:05:001.2[facility] RilfaruPLBPMMSUOE0541-13-02 03:05:00 63.3[facility] YhdyxioIHRPOAAZYW8557-64-01 03:05:0014.0[facility] HermannHEMATOLOGY 2011-10-25 03:05:21348Ptcfqogc YcphuocGVXRISZTNA8792-43-30 03:05:008.0[facility] EgzfrucDXSSAIYYZE6771-29-52 03:05:0013.3[facility] WbhpuidDCHAADTUQC1054-58-10 03:05:0039.4[facility] ScgkkqcQXQYVXAFYH9484-22-32 03:05:0086.2[facility] CFYNFHHYKY9598-84-08 03:05:00 Test Item Value Reference Range Interpretation Comments MCH (test code = MCH) 29.1 pg 27.0-31.0 N [facility] YxhnwddDONQWWSJII8244-33-65 03:05:0033.8[facility] HermannHEMATOLOGY 2011-10-25 03:05:006.9[facility] QinmjefLNWTBQVHGG4593-18-76 03:05:004.57[facility] SzvrbybRPOXVNXROH3191-27-77 03:05:00Positive *ABN*(10/24/2011 22:05:00)[facility] DtdipatECBRNBWVJS0503-35-54 03:05:00Negative (10/24/2011 22:05:00)[facility] KfrvfewEWXASJUFXG0213-17-64 03:05:00Negative (10/24/2011 22:05:00)[facility] IauyzjxKSNJXYKAIL2750-66-00 03:05:00>=1000 mg/dL *ABN*(10/24/2011 22:05:00) [facility] TkwelwgNPFJWGYWEA7013-94-02 03:05:00 Test Item Value Reference Range Interpretation Comments UA pH (test code = UA pH) 6.0 1 5.0-8.0 N [facility] TipdzcnXLPSLQNQZP7185-92-87 03:05:00 Test Item Value Reference Range Interpretation Comments UA Spec Grav (test code = UA Spec 1.015 1 N Grav) [facility] SvxtwydUJRPUTRZDZ7374-48-06 03:05:00Yellow *NA*(10/24/2011 22:05:00) [facility] KftsvocBGIPMBSCDB2849-71-41 03:05:00Clear (10/24/2011 22:05:00)[facility] NbgcbbbIJQPFPSPQH3605-40-70 03:05:000.2[facility] OrlhjykKJAOZJLLIU0079-03-05 03:05:00Negative *NA*(10/24/2011 22:05:00)[facility] BhvjatwESGWNQCQUE0469-00-37 03:05:00Negative (10/24/2011 22:05:00)[facility] FwfhjdiCNXBJMGYFV7836-07-75 03:05:00Negative *NA*(10/24/2011 22:05:00)[facility] EnjqxoiGORYNKBXAB7839-56-83 03:05:00Rare /LPF (10/24/2011 22:05:00)[facility] EtmnjhvRNZDIZHVTO9882-68-00 03:05:00Moderate /HPF (10/24/2011 22:05:00)[facility] WdaqjbmGXHBQYHBSA2683-21-63 03:05:000-2 /HPF (10/24/2011 22:05:00)[facility]LauixrbVOPALHGVQK6728-66-20 03:05:00Performed (10/24/2011 22:05:00)[facility] CenterDdhlujgMAFYRHEZRT3683-03-48 03:05:006-10 /HPF *ABN*(10/24/2011 22:05:00)[facility] ItnoefeVMFZNWMLDI1118-58-62 03:05:00Rare /LPF (10/24/2011 22:05:00)[facility] 2011-10-25 02:43:00>400[facility]annBEDSIDE GLUCOSE JANAQVQ1115-04-74 08:15:13017Ncwjvcpv HermannBEDSIDE GLUCOSE IXSJRJD7207-53-69 07:07:00>400 [facility] SubtnjeUHIKGCANR3356-99-59 05:10:13062Qpvlcvbl HermannCHEMISTRY 2011-05-23 05:10:000.8[facility] PfpflakZYCRZTYEH3887-35-26 05:10:0026[facility] JqevbvfSIVQSLMNU2012-50-37 05:10:0096[facility] YcxslxoZMQTEVUGX2627-73-31 05:10:003.9[facility] FzbinyvMORSLYHSD3809-98-68 05:10:0012.9[facility] DIMBMJLDJ8312-01-67 05:10:004.0[facility] XkdwvimUQGJVBRQT0786-64-72 05:10:007.8 [facility] KxadhnqINJNGHAPC8693-61-99 05:10:0015[facility] HermannCHEMISTRY 2011-05-23 05:10:30361Msfzdzbo HkebeoaRWAYJZFCN9846-01-33 05:10:001.1[facility] HwwaawlVXSQNACOQ5935-02-25 05:10:003.8[facility] IrvxruqAJQACULZR3063-69-80 05:10:008.6[facility] SmijzyiGBGZWPXRT1967-13-54 05:10:0011[facility] [place] RPKYCSWKT9751-51-96 05:10:000.4[facility] YsllihwAVXHQCJLQ9450-57-01 05:10:33934 [facility] MtfdryrQFBMSLHMK9417-94-73 05:10:0015[facility] HermannCHEMISTRY 2011-05-23 05:10:46301Iyszwqlb PjxhestXNQSMRTRX4362-17-20 05:10:0012[facility] GobasmlAJCDTDFFZ3500-12-63 05:10:66905Sohtmelt DyyvxtxDJMSUYYNX3236-45-75 05:10:000.36[facility] ObumjhoWBECYJAYPE7555-40-69 05:10:83946Ohqtvbzc [place] CWDXLJTINH9126-32-34 05:10:0034.3[facility] WynchurPQVBHHVEST6036-10-40 05:10:00 7.9[facility] ZhqvvhrLZYPYMCGEO7922-97-22 05:10:0013.0[facility] HermannHEMATOLOGY 2011-05-23 05:10:00 Test Item Value Reference Range Interpretation Comments MCH (test code = MCH) 29.5 pg 27.0-31.0 N [facility] MsnbqxvBRMHLRQDRI1965 05:10:0038.1[facility] HermannHEMATOLOGY 2011-05-23 05:10:0086.0[facility] LwussnsCYCPNECTKI8159-45-95 05:10:004.43[facility] SyxwitrCGBSZXTHIB8979-60-07 05:10:005.9[facility] IdqejxyFVPLWXWLLD6787-86-26 05:10:0014.0[facility] BcjjcnxFWHDRMLUYV3586-06-73 05:10:000.0[facility] [place] AXJKHEMGPL0455-23-28 05:10:001.7[facility] QkssmdrVDINEHXPHP3063-72-12 05:10:000.3 [facility] RabsfcmXCTAUNFZFY1372-38-57 05:10:000.6[facility] HermannHEMATOLOGY 2011-05-23 05:10:003.8[facility] KurpuekPFKSTQBHDG9407-21-11 05:10:000.1[facility] QvaszfsUIWVUOASKV3694-02-12 05:10:004.7[facility] UbkwoxyRSFHJWJOWT0071-45-21 05:10:0028.9[facility] MldpvvjTSWZKXNZFJ4525-08-58 05:10:002.5[facility] YFWVLLBJSR8991-63-46 05:10:0063.3[facility] BmnurehNYGOOFWFKG1935-38-89 05:10:000- 2 /HPF (05/22/2011 23:10:00)[facility] HbjocztMKDNMJRTGJ7166-48-42 05:10:00 Occasional /HPF (05/22/2011 23:10:00)[facility] UwiykxlOPSHDSIPLH9604-29-62 05:10:00Negative (05/22/2011 23:10:00)[facility] BuyhraiRZKUWXAPMV6786-64-85 05:10:00Negative *NA*(05/22/2011 23:10:00)[facility] CenterLscrxbuHPRDZJJOOJ5509-98-32 05:10:00>=1000 mg/dL *ABN*(05/22/2011 23:10:00)[facility] HermannURINALYSIS 2011-05-23 05:10:00Negative (05/22/2011 23:10:00)[facility] HermannURINALYSIS 2011-05-23 05:10:00 Test Item Value Reference Range Interpretation Comments UA pH (test code = UA pH) 5.0 1 5.0-8.0 N [facility] JsarfyyXXSFQAFCEY3422-40-56 05:10:003-5 /HPF (05/22/2011 23:10:00) [facility] JzkhkpoSSOSUYHTLT7082-52-22 05:10:00Rare /LPF (05/22/2011 23:10:00) [facility] PjvdnanMYDKXVRTAP4866-41-25 05:10:000.2[facility] HermannURINALYSIS 2011-05-23 05:10:00Negative (05/22/2011 23:10:00)[facility] HermannURINALYSIS 2011-05-23 05:10:00Negative *NA*(05/22/2011 23:10:00)[facility] HermannURINALYSIS 2011-05-23 05:10:00Negative (05/22/2011 23:10:00)[facility] HermannURINALYSIS 2011-05-23 05:10:00Performed (05/22/2011 23:10:00)[facility] HermannURINALYSIS 2011-05-23 05:10:00Yellow *NA*(05/22/2011 23:10:00)[facility] HermannURINALYSIS 2011-05-23 05:10:00Clear (05/22/2011 23:10:00)[facility] HermannURINALYSIS 2011-05-08 00:16:00Negative (05/07/2011 18:16:00)[facility] HermannURINALYSIS 2011-05-08 00:16:000.2[facility] DfccekpBHDIXHHVBG4233-34-87 00:16:00Negative *NA*(05/07/2011 18:16:00)[facility] AttbeirAPNDPBPNBT5508-37-39 00:16:00Large *ABN*(05/07/2011 18:16:00)[facility] XrfiwsxNGEFXWUJEV9689-10-81 00:16:006-10 /HPF *ABN*(05/07/2011 18:16:00)[facility] YllrxidMWBDWGPQZJ7611-30-09 00:16:00 Occasional /HPF (05/07/2011 18:16:00)[facility] KaovkrpKYOXUTJWGA2936-81-67 00:16:00Performed (05/07/2011 18:16:00)[facility] VllexypJFCMKQVTGP8963-70-29 00:16:00Few /LPF (05/07/2011 18:16:00)[facility] RzxzhyxSHFOLVTUEO1731-14-31 00:16:00Negative (05/07/2011 18:16:00)[facility] UjnvckkNBPGCMXJJO3187-63-92 00:16:0021-50 /HPF *ABN*(05/07/2011 18:16:00)[facility] HermannURINALYSIS 2011-05-08 00:16:00Trace *ABN*(05/07/2011 18:16:00)[facility] HermannURINALYSIS 2011-05-08 00:16:00>=1000 mg/dL *ABN*(05/07/2011 18:16:00)[facility] UMJTQVZLRV4600-71-05 00:16:00Negative (05/07/2011 18:16:00)[facility] Jona MPVRLSRVRP0895-04-96 00:16:00 Test Item Value Reference Range Interpretation Comments UA Spec Grav (test code = UA Spec 1.010 1 N Grav) [facility] SjnjisiXLJGTGORYT1009-28-23 00:16:00Clear (05/07/2011 18:16:00)[facility] WezrbaqFCCKBPMITI5853-03-94 00:16:00 Test Item Value Reference Range Interpretation Comments UA pH (test code = UA pH) 6.0 1 5.0-8.0 N [facility] ZedqeqwKKKNFUHHXB5030-73-57 00:16:00Yellow *NA*(05/07/2011 18:16:00) [facility] XOGAQGW3375-09-94 06:51:94033Ivdmmfdd J[facility] HGZZUNJIR6091-87-48 04:20:00Negative (04/19/2011 22:20:00)[facility] [place] ODZNGZWUW4816-14-55 04:20:004.1[facility] FmiahlxJPQLXOKBZ8119-81-11 04:20:0015 [facility] XfvafkmSHXCYRHKR5568-31-94 04:20:009.2[facility] HermannCHEMISTRY 2011-04-20 04:20:0096[facility] GewdncjQDVNDIRSN3559-44-53 04:20:0016.2[facility] TwioadqQJDQDJXAP2740-35-11 04:20:0024[facility] FyfynhxSSHCZMNWG3482-71-69 04:20:004.0[facility] OljqquyNRQORWGKC9028-49-55 04:20:008.1[facility] [place] MZLHQNJTR2381-35-38 04:20:000.4[facility] DasovghDMWTJNEAZ6471-29-14 04:20:0092 [facility] TtycyerMBHDEMFCP1153-08-04 04:20:004[facility] ScgfbhxPWQMTFOQT5399-10-26 04:20:0014[facility] UspbyoiMGVZKAJPW2877-99-06 04:20:001.0[facility] QVWUYVURR6597-65-91 04:20:93370Vjfcslxj ZbminfdFLLMVWSNV7935-28-17 04:20:000.8 [facility] VkueskqQMZSEETHY2798-99-07 04:20:0012[facility] HermannCHEMISTRY 2011-04-20 04:20:004.2[facility] QftkphuMUVRZDDWE0847-06-47 04:20:03659Mczlqdpp PnwptenPKNRDULLM7569-70-90 04:20:91281Fjynxgjc IcmofdbUYSPFAAXQ3481-72-18 04:20:0070[facility] AcfcbuvGXSJQHCZPX1960-44-48 04:20:007.9[facility] DANNIWZEOV4501-15-15 04:20:93199Cnzmiknv ZqzxbtmCJGJYIVXIT8889-34-12 04:20:00 4.54[facility] XmtrrekVYAEJBUVIG5971-48-43 04:20:0013.3[facility] HermannHEMATOLOGY 2011-04-20 04:20:00 Test Item Value Reference Range Interpretation Comments MCH (test code = MCH) 29.3 pg 27.0-31.0 N [facility] ZovrrilWKDYYMANTV3794-82-05 04:20:0033.9[facility] HermannHEMATOLOGY 2011-04-20 04:20:0014.0[facility] TjjsybcCYSGYDYUBR3714-71-83 04:20:0039.3[facility] KzmqvooLPBBWSUDPV2414-57-79 04:20:0086.5[facility] JkoaebcJNNXSEXGEF6627-81-85 04:20:008.6[facility] PcqzccpGMKSWCNHQY3267-50-67 04:20:000.1[facility] [place] KBIBJLLPKT0369-75-31 04:20:000.1[facility] DszqpltEWRILBMTBN3226-97-51 04:20:000.9 [facility] LqttpizXIRNUVLRXN9704-29-86 04:20:0019.9[facility]annHEMATOLOGY 2011-04-20 04:20:005.4[facility] MwrkgjfHNMIXQVXLH3815-08-42 04:20:0073.1[facility] OvnfqgjJONTFCHXPD4600-97-93 04:20:001.7[facility] DbyqibdINSGBWZXLW5851-51-89 04:20:000.5[facility] WobdkpqYPGEXTDTOX1259-35-24 04:20:000.7[facility] CEBJTRBKCV8757-87-84 04:20:006.3[facility] UxmaotgTPUORCVVXV2829-08-76 02:29:00 Negative *NA*(04/19/2011 20:29:00)[facility] CrydppyYQWGEAKKCK9618-35-39 02:29:00 Negative *NA*(04/19/2011 20:29:00)[facility] QjaxlumONVWMRPWYX3761-16-41 02:29:00 Negative (04/19/2011 20:29:00)[facility] EmhztxwFHLCXLFRJU5406-73-77 02:29:00 Negative (04/19/2011 20:29:00)[facility] DmrowbsFMQPUMNJDK9952-60-89 02:29:00 Test Item Value Reference Range Interpretation Comments UA pH (test code = UA pH) 6.0 1 5.0-8.0 N [facility] GcpzypwXTWWBTDUYT4964-82-32 02:29:00>=1000 mg/dL *ABN*(04/19/2011 20:29:00)[facility] ZguwgydCQWHLCXFOU3817-59-00 02:29:00Performed (04/19/2011 20:29:00)[facility] JjrfnkoJECWRQPLBJ1238-39-20 02:29:00Negative (04/19/2011 20:29:00)[facility] EcdawibYWYAMDPEBP9381-83-34 02:29:000.2[facility] XQANESVXGH8269-61-98 02:29:00Negative (04/19/2011 20:29:00)[facility] PKPYDOWEHU8004-63-09 02:29:00Occasional /HPF (04/19/2011 20:29:00)[facility] AbcpfdhFISNTWFSPP1330-38-74 02:29:00Occasional /LPF (04/19/2011 20:29:00) [facility] VmtnoljMZOTDSENVX1870-13-21 02:29:003-5 /HPF (04/19/2011 20:29:00) [facility] WxvjfyoMKEBQJFFMU3319-37-63 02:29:000-2 /HPF (04/19/2011 20:29:00) [facility] JefmjztLLQZDYACRV1588-27-41 02:29:00Clear (04/19/2011 20:29:00)[facility] UiefvzjSLQRWDGJHR9523-40-67 02:29:00Yellow *NA*(04/19/2011 20:29:00)[facility] HermannBEDSIDE GLUCOSE XLCDLYV8489-77-27 05:47:90359Dsnpwqni HermannCHEMISTRY 2011-03-26 02:45:00<3[facility] WityvhaUHHOZZKCZ1194-14-13 02:45:009.2[facility] EevnwkjRJHKQQSKZ6343-00-61 02:45:0014.0[facility] WukqfseCATYEONAB7222-69-25 02:45:0025[facility] RcrogkkDMTNYKZBW5278-82-22 02:45:0097[facility] MYJTHWIVH6290-93-21 02:45:004.0[facility] SijxkrwUCKPQJEJJ4382-92-59 02:45:000.7 [facility] JiswvjxTWOGNTUVL2968-95-38 02:45:83947Jshodddx HermannCHEMISTRY 2011-03-26 02:45:000.5[facility] PqiwdqoJQARKYZHY7073-48-54 02:45:0069[facility] FsdgvpxNADDHRQVT9813-96-06 02:45:0014[facility] CgemdrqXNRFFOGNY9770-29-59 02:45:003.9[facility] UslyldtKKULBQUFD7454-07-36 02:45:007.8[facility] ZHXCZXHME9740-50-40 02:45:0019[facility] MeygatlXXNUPHUKM8103-01-39 02:45:001.0 [facility] JklloclYWLNHVFLM9468-22-80 02:45:003.9[facility] HermannCHEMISTRY 2011-03-26 02:45:0013[facility] [place]auaTETAQPVSO1587-06-16 02:45:64112Nayuqtrc XxvkkfkIDGQKTIJN7326-62-11 02:45:39058Jramvzqf GrnnsfiJVRFMWWSRT4954-84-52 02:45:0012.7[facility] MggxcixDPUXIECNIE0093-19-06 02:45:0014.0[facility] BUMUEIKDXL2891-34-63 02:45:0036.9[facility] MxmfwxyDKCONDNLKZ2082-41-71 02:45:00 85.5[facility] HfxupvuLDQYUPOCBA3400-82-84 02:45:00 Test Item Value Reference Range Interpretation Comments MCH (test code = MCH) 29.5 pg 27.0-31.0 N [facility] FkcxxhtGPSITYTXBL9916-56-21 02:45:0034.5[facility] HermannHEMATOLOGY 2011-03-26 02:45:84487Mjobpzzr RhmiicnXMQMGYMTZW5800-08-49 02:45:008.2[facility] ZtyzlohMFNKTREFJY7783-72-90 02:45:006.9[facility] GsvpwzrTTENVTGXNV0981-17-24 02:45:004.32[facility] GeqhertWEJADWVIZH1652-90-23 02:45:000.5[facility] OFVBXKIVXR2465-10-84 02:45:004.6[facility] OmionmyVPTSWWRBXK7844-14-13 02:45:001.9 [facility] RiurslqULHNEYEPVL8688-55-62 02:45:000.3[facility] HermannHEMATOLOGY 2011-03-26 02:45:000.1[facility] JkfpnifMECOLNRKAS6884-60-87 02:45:000.0[facility] YkxcltdUJDWYOTZHB9334-58-98 02:45:0027.2[facility] RymtvieXFQHPJLKGC6119-08-72 02:45:0066.3[facility] IufxppwHIWPEODZOZ5122-23-04 02:45:004.8[facility] WXZTYXAKDB2449-40-72 02:45:001.2[facility] TuyatkeKLLMAJVGRC4210-70-38 02:00:00 Occasional /HPF (03/25/2011 20:00:00)[facility] KepbmpgQDXGBVEYIG7961-35-98 02:00:00Occasional /HPF *ABN*(03/25/2011 20:00:00)[facility] HermannURINALYSIS 2011-03-26 02:00:00Rare /LPF (03/25/2011 20:00:00)[facility]annURINALYSIS 2011-03-26 02:00:000-2 /HPF (03/25/2011 20:00:00)[facility]annURINALYSIS 2011-03-26 02:00:000-2 /HPF (03/25/2011 20:00:00)[facility]annURINALYSIS 2011-03-26 02:00:00Negative (03/25/2011 20:00:00)[facility]annURINALYSIS 2011-03-26 02:00:00Performed (03/25/2011 20:00:00)[facility]annURINALYSIS 2011-03-26 02:00:00Negative (03/25/2011 20:00:00)[facility]annURINALYSIS 2011-03-26 02:00:00Negative (03/25/2011 20:00:00)[facility]annURINALYSIS 2011-03-26 02:00:000.2[facility] TifrmgrQDSZWPHIVI8194-49-72 02:00:00Yellow *NA*(03/25/2011 20:00:00)[facility] HrihsorWCOWCKERVP4162-48-00 02:00:00Clear (03/25/2011 20:00:00)[facility] DjvikqkROSHJJFUSH7542-82-05 02:00:00Negative *NA*(03/25/2011 20:00:00)[facility] FrqoieyLYYDVMHXAE9098-93-55 02:00:00>=1000 mg/dL *ABN*(03/25/2011 20:00:00)[facility] XaoddhnKJDSQDKRFG8996-07-14 02:00:00 Negative *NA*(03/25/2011 20:00:00)[facility] NwrkjidTNYZJRUNSD6489-23-68 02:00:00 Test Item Value Reference Range Interpretation Comments UA pH (test code = UA pH) 6.0 1 5.0-8.0 N [facility] ByabcxlSRFTDPWSDM6003-29-60 02:00:00Negative (03/25/2011 20:00:00) [facility] HermannBEDSIDE GLUCOSE BFSMMUS7089-61-28 16:26:30492.0[facility] SFNQCQNXM5101-94-99 15:30:00<0.6[facility] KqqxoycANLCOGXKG9411-10-40 15:30:00 <0.5[facility] WwjnuotDGKBTYAPA4490-43-90 15:30:0077.0[facility] HermannCHEMISTRY 2011-02-11 15:30:0077.0[facility] KlejbutJEMKXLRKK6583-30-63 15:30:00<0.02 [facility] HermannBEDSIDE GLUCOSE GQZOAVL9176-02-35 12:00:42938.0[facility] ULYNVALGG9417-72-19 09:29:001.5[facility] SsxwxigQSKLDGOUD5425-21-62 09:29:21079.0 [facility] GniyvrcKLVHKBPEP1684-63-70 09:29:0011.0[facility] HermannCHEMISTRY 2011-02-11 09:29:007.8[facility] HnsywcsUSGVYOXJI5483-19-87 09:29:0013.7[facility] KrkpwauJGXOJODIA0657-90-44 09:29:000.6[facility] EsivihuGFKXCZCHO7012-76-47 09:29:07048.0[facility] QylgcwzOVDUBGWJX0213-57-20 09:29:003.7[facility] FMLUAYQXW0455-01-57 09:29:58492.0[facility] FmfrcqcXNFJFNQFT9345-94-01 09:29:00 24.0[facility] MqpykmvKHUQCTCFV9480-51-42 09:29:00<0.02[facility] [place] XVVRHVTDR8509-85-36 09:29:0071.0[facility] HcravigGSDKPRPWS1975-15-56 09:29:0071.0 [facility] UosagdoQAEIGSGNZK4640-25-37 09:29:007.8[facility]annHEMATOLOGY 2011-02-11 09:29:0014.1[facility] PufjdibLTMJZIKBCY0418-30-13 09:29:006.8[facility] FmiicoeYTIPUOUDRN8183-29-69 09:29:0011.8[facility] AoeetmsRPYRPGOYXN4009-36-88 09:29:004.11[facility] XicalwmQKFPLGUVNV2903-63-48 09:29:0035.3[facility] UEQRYJEWEF1937-81-76 09:29:00 Test Item Value Reference Range Interpretation Comments MCH (test code = MCH) 28.7 pg 27.0-31.0 N [facility] NfvxwzfAYNJJXDXFW0887-77-24 09:29:0085.7[facility] HermannHEMATOLOGY 2011-02-11 09:29:34148.0[facility] FhcnyyaKHMMJKYPYO9081-43-07 09:29:0033.5 [facility] WhfmyhbPCUMWUAMVE7840-72-55 09:29:0026.3[facility]annHEMATOLOGY 2011-02-11 09:29:0065.8[facility] YxinilaIQFQKGMQOC0108-49-46 09:29:006.1[facility] YzhujhtOXOODMOAUF6551-25-58 09:29:001.2[facility] ErnxcxsPCCPOPTIXX5523-43-78 09:29:000.6[facility] QaoimsvUSSXNBOEXW6262-76-03 09:29:004.5[facility] DORBHPJGRG8302-11-63 09:29:001.8[facility] MdpcgokDBHIQURLGI4540-01-86 09:29:000.4 [facility] RgrgoaoUEMMNKIPOJ6910-34-24 09:29:000.0[facility]annHEMATOLOGY 2011-02-11 09:29:000.1[facility] HermannBEDSIDE GLUCOSE BJFIIVE9396-46-38 05:34:00 151.0[facility] LkrvhlwXVOWXKSYTZ3074-99-09 03:26:00>=1000 mg/dL *ABN*(02/10/2011 22:26:00) ??[facility] FwikkvgZRLUANZJQX3976-09-88 03:26:00 Negative mg/dL *NA*(02/10/2011 22:26:00) ??[facility] QqrdqvdOYIHLWCWOT7780-39-76 03:26:00 Test Item Value Reference Range Interpretation Comments UA pH (test code = UA pH) 6.5 1 5.0-8.0 N [facility] SahlpupISYCCHVGEW2638-97-46 03:26:00Negative mg/dL (02/10/2011 22:26:00) ??[facility] BmrowdgSRJCARAAHJ0108-34-91 03:26:00Negative (02/10/2011 22:26:00) ??[facility] EqsoosmDQCSUQPPGK2263-91-80 03:26:00Negative (02/10/2011 22:26:00) ??[facility] ObdbiihAKBRVNDJYZ0194-16-95 03:26:000.2[facility] [place] PTWEYCYFDG0640-68-22 03:26:00Negative (02/10/2011 22:26:00) [facility] KACPSUGDQC6121-26-69 03:26:00Negative *NA*(02/10/2011 22:26:00) ??[facility] AoxkeunFMTYQSAIDH7419-81-45 03:26:00Clear (02/10/2011 22:26:00) ??[facility]asvyeoNQNQNGOMHC7380-88-09 03:26:00 Test Item Value Reference Range Interpretation Comments UA Spec Grav (test code = UA Spec 1.01 1 N Grav) [facility]OhbndzdQFFKQFCIVN5327-90-39 03:26:00Yellow *NA*(02/10/2011 22:26:00) ?? [facility] ZpvsqrtTLLAWUICQM5556-00-13 03:26:000-2 /HPF (02/10/2011 22:26:00) ?? [facility] SktcydxRIJVMRLQVC2916-09-65 03:26:006-10 /HPF *ABN*(02/10/2011 22:26:00) ??[facility] CenterAohenmeHIBQNXPLJC6361-31-06 03:26:00Few /LPF (02/10/2011 22:26:00) ??[facility] CenterZpnqbneOXJUEYSGKW9409-63-58 03:26:00Few /HPF (02/10/2011 22:26:00) ??[facility] VfrussoPXKPTWKQWH3135-26-72 03:26:00Occasional /HPF *ABN*(02/10/2011 22:26:00) ??[facility] FiutzevGVKKONEVOU3245-00-14 03:26:00 Performed (02/10/2011 22:26:00) ??[facility] XtlnqayIPHJDGKBY3283-98-52 03:03:00 Negative *NA*(02/10/2011 22:03:00) ??[facility] DwpjgjlXIHGEMKRR2109-83-20 03:03:00<0.5[facility] EednmorONWUCTKII8573-26-76 03:03:00<0.02[facility] GhsmsjnBDEOCXCZK2795-75-16 03:03:007.0[facility] DjojspjXCNMQYMKR1891-13-15 03:03:004.0[facility] IgpvqtkBYRSYOPLC7322-20-86 03:03:007.5[facility] PLOZIFNUL2775-68-39 03:03:00 Test Item Value Reference Range Interpretation Comments A/G Ratio (test code = A/G Ratio) 1.1 1 0.7-1.6 N [facility] HnceixmASJRIZWST4456-12-00 03:03:003.5[facility] HermannCHEMISTRY 2011-02-11 03:03:0014.0[facility] QqlfbojRIRVVEBZJ7819-45-26 03:03:000.3[facility] AbvdfeoSMHCLYWXN5539-48-56 03:03:0069.0[facility] YvublqxLPWQABFKF4115-34-02 03:03:0022.0[facility] PrxianrRKMDZYXUS7902-67-32 03:03:00 Test Item Value Reference Range Interpretation Comments B/C Ratio (test code = B/C Ratio) 20.0 1 6-25 N [facility] SyttljfNTPWAHBAI1111-58-71 03:03:0096.0[facility] HermannCHEMISTRY 2011-02-11 03:03:008.7[facility] HzfxiipCUKQDLKPZ9855-78-56 03:03:0017.3[facility] VfzwiihSTMZMNSBL2669-49-54 03:03:52329.0[facility] ZtrakswCYZNDNWOK1195-42-02 03:03:39595.0[facility] BfzuucaDOXDHZDPL1351-66-01 03:03:000.6[facility] QKFGMMWCQ7658-21-90 03:03:0012.0[facility] XxyjcwbVLGUPZHGK2416-30-83 03:03:004.3 [facility] FktiisgCIUJMUYKD5700-19-28 03:03:00Negative (02/10/2011 22:03:00) ?? [facility] DxcnmlxGFFEAAWUSG5042-42-67 03:03:003.9[facility] HermannHEMATOLOGY 2011-02-11 03:03:002.0[facility] MpgvumgIGPMMKOPGK2884-49-58 03:03:000.5[facility] AtkbmpgYCENVYQJXE8998-86-64 03:03:000.4[facility] JoyniwsWEHORDXYIQ2981-02-55 03:03:000.1[facility] PngwdpoBMIWSKCYFR5987-45-70 03:03:0060.9[facility] [place] ATRWZPSKSN3759-98-46 03:03:0031.7[facility] TzuhdamNEZQNPPVPG4671-50-24 03:03:00 1.2[facility] CxjalqgYLWNZLOTAX0980-52-49 03:03:005.7[facility] HermannHEMATOLOGY 2011-02-11 03:03:000.0[facility] HlquvtsWDCKIJAWZL0739-23-59 03:03:00 Test Item Value Reference Range Interpretation Comments PT (test code = PT) 13.9 s 12.0-14.7 N [facility] EfwgvweTJUIMEFDZR3085-70-79 03:03:00 Test Item Value Reference Range Interpretation Comments PTT (test code = PTT) 28.4 s 22.9-35.8 N [facility] KrbpngaPKBLNDACQY2983-42-98 03:03:00 Test Item Value Reference Range Interpretation Comments INR (test code = INR) 1.07 1 0.85-1.17 N [facility] FbpjrpqEWVEXSVKXZ6632-04-66 03:03:0033.7[facility] HermannHEMATOLOGY 2011-02-11 03:03:0014.3[facility] SsqkqedTCMXMZXGXS4960-07-38 03:03:32952.0 [facility] EpxilmuMEQQDGUKKX8777-63-58 03:03:007.9[facility] HermannHEMATOLOGY 2011-02-11 03:03:0085.9[facility] ZzrqoomIEJCQQSARA2787-35-12 03:03:004.43[facility] AoicrpmXQUKXFXXCR8444-56-19 03:03:0038.1[facility] VaofxqtHKSHPUBLYX3702-44-46 03:03:0012.8[facility] JoegdawWDXSZVKORT5829-90-55 03:03:00 Test Item Value Reference Range Interpretation Comments MCH (test code = MCH) 28.9 pg 27.0-31.0 N [facility] GnhxffvSHDBZCOZIF5043-39-54 03:03:006.5[facility] HermannHEMATOLOGY 2011-02-11 03:03:001.1[facility] HermannBEDSIDE GLUCOSE EMZTIXV6569-38-84 16:39:00 175.0[facility] HermannBEDSIDE GLUCOSE UAUOGWH0370-62-28 12:16:0088.0[facility] HermannBEDSIDE GLUCOSE SNVWLQH0387-39-62 11:27:0070.0[facility] HermannCHEMISTRY 2011-01-15 10:45:00<0.6[facility] GaiyxhyBWPFAYIZF8638-01-88 10:45:00<0.5 [facility] FczxvrrYPZUJZBYT2499-16-41 10:45:00<0.02[facility] HermannCHEMISTRY 2011-01-15 10:45:0088.0[facility] VjzmylyARYETCDPT4806-53-22 10:45:000.6[facility] JiphdbqBPKRVFVFI2719-10-30 10:45:003.4[facility] DwelokwDTURCQVGW1182-80-70 10:45:39810.0[facility] IwnezhkBEDLILFBH4908-16-04 10:45:0013.0[facility] [place] UVEIQLXUC2515-59-58 10:45:0025.0[facility] AfwqagnKMGSQYTXH3816-68-54 10:45:008.0 [facility] PvzhbnmXGMPLPGOS0741-24-36 10:45:0018.4[facility] HermannCHEMISTRY 2011-01-15 10:45:12194.0[facility] JohxfdaMCRZNICQM6832-74-62 10:45:19813.0 [facility] PhlnlwaIFWTNZKHF1491-15-31 10:45:0096.0[facility] HermannCHEMISTRY 2011-01-15 10:45:00 Test Item Value Reference Range Interpretation Comments CHD Risk (test code = CHD Risk) 3.8 1 3.90-5.80 L [facility] YjswtqiASSCLOUUQ0909-93-17 10:45:0045.0[facility] HermannCHEMISTRY 2011-01-15 10:45:94211.0[facility] OsfixiwBXYEEFHET2187-90-32 10:45:39278.0 [facility] BzjapeuRDAWNJHUN1363-91-68 01:43:00<0.5[facility] HermannCHEMISTRY 2011-01-15 01:43:00<0.6[facility] AyzkbwmZLFNIEDMO8586-17-84 01:43:0083.0 [facility] WnfjohsVSXNYHHDU4228-72-29 01:43:00<0.02[facility] HermannCHEMISTRY 2011-01-14 21:36:00Negative (01/14/2011 16:36:00) ??[facility] HermannCHEMISTRY 2011-01-14 20:36:00<0.6[facility] HyqodrfHRETTUIEI7998-87-42 20:36:0013.0 [facility] ObyhpugKOCYROLIF0275-93-03 20:36:00<3.0[facility] HermannCHEMISTRY 2011-01-14 20:36:000.5[facility] AlejgnxXMPGHAIKW0902-92-65 20:36:003.8[facility] HellshbOEQGWGIYI4192-24-25 20:36:0017.0[facility] RgrubjkBXLAHTLTQ3369-57-34 20:36:0071.0[facility] UsmbjxjTKUWSEMCW2874-64-19 20:36:003.8[facility] [place] TFFLMQXPS0027-48-35 20:36:41477.0[facility] QjubfweUEDNTWWZE0748-45-74 20:36:00 22.0[facility] FirhbowSFOSRPFFK1252-92-65 20:36:0014.8[facility] HermannCHEMISTRY 2011-01-14 20:36:008.6[facility] LtlghejLAWMYQTNZ7577-40-98 20:36:51017.0[facility] UswbhhqHKTHWETWD9380-52-67 20:36:003.6[facility] RijicyxPKFRAFPEG9896-99-33 20:36:00 Test Item Value Reference Range Interpretation Comments A/G Ratio (test code = A/G Ratio) 1.1 1 0.7-1.6 N [facility] NslfajiTRRHQKDEB7284-17-80 20:36:00 Test Item Value Reference Range Interpretation Comments B/C Ratio (test code = B/C Ratio) 11.0 1 6-25 N [facility] FikyzsqOYLZWHKGU4827-53-93 20:36:007.4[facility] HermannCHEMISTRY 2011-01-14 20:36:22122.0[facility] QmdzqmwIIFPDYBAB1480-01-24 20:36:009.0[facility] JtipnudEZEAUNZHX9165-16-68 20:36:000.8[facility] KmbfahkGTBFDZGCC0857-86-14 20:36:00<0.02[facility] HoridsdKITFXIXUI0712-86-08 20:36:00<0.5[facility] UbdtitjAHZHBJZMR3716-48-63 20:36:0078.0[facility] BinyoblJTUPQWWNJB0160-88-80 20:36:000.3[facility] XduzyxfNNWLQCHUXN0489-36-96 20:36:001.7[facility] [place] BGFKUETHDD9093-61-63 20:36:003.5[facility] NprdwwnLEAJTNAWVY9211-19-62 20:36:000.9 [facility] ZfwnqggRRUXRZIJSY2884-73-78 20:36:000.9[facility] HermannHEMATOLOGY 2011-01-14 20:36:000.0[facility] DytbehhNBTSLZLCQG3068-33-66 20:36:000.1[facility] GnarkstGHPUZQKJWS0330-34-04 20:36:0030.7[facility] MqsotqcFAPBAUQVGO8054-33-25 20:36:0063.0[facility] SqvnlpuEBBECIAAOM5744-32-55 20:36:004.5[facility] IHHXVHPPUR3159-02-34 20:36:0014.6[facility] ZkzaqboIVZRSLFIZF5363-55-99 20:36:00 34.0[facility] NvhsxipMQMIPEVHXJ3328-51-06 20:36:008.0[facility] HermannHEMATOLOGY 2011-01-14 20:36:29810.0[facility] BgyrxhrNPOUFBPUFX2796-38-17 20:36:00 Test Item Value Reference Range Interpretation Comments MCH (test code = MCH) 28.8 pg 27.0-31.0 N [facility] CenterOwymbcsLRHAWGDKMT5034-67-02 20:36:0013.2[facility] HermannHEMATOLOGY 2011-01-14 20:36:004.6[facility] OapxzzjNPBISMCLMW1703-08-22 20:36:0038.9[facility] XtdkclfEVYILZYIRO6863-26-20 20:36:0084.6[facility] JgmaxulIHQSMUGPAR4780-83-38 20:36:005.6[facility] DkteppnDZIDQKJFYN4487-53-85 20:36:00 Test Item Value Reference Range Interpretation Comments PT (test code = PT) 13.6 s 12.0-14.7 N [facility] CenterYyeyjflOJSFRTJIAV0958-70-53 20:36:00 Test Item Value Reference Range Interpretation Comments PTT (test code = PTT) 30.2 s 22.9-35.8 N [facility] CenterMgfwxhzBRGODDCLCM9396-09-68 20:36:00 Test Item Value Reference Range Interpretation Comments INR (test code = INR) 1.04 1 0.85-1.17 N [facility] CenterYumcatzICUCTGCRZN0511-70-39 20:36:001.5[facility]
[2020-05-17] MEDS ORDERED: MORPHINE 4 MG/ML SYR ONE (08:59)
[2020-05-17] MEDS ORDERED: ONDANSETRON 4 MG/2 ML VIAL ONE (09:00)
[2020-05-17 09:26] LABS: Absolute Lymphocytes (CBC) 2.1 K/uL (0.7-4.9); Basophils % 0.8 % (0-1.3); Hematocrit 27.5 % (36.0-45.0); Lymphocytes % 33.1 % (15.3-44.8); MPV 7.7 fL (7.6-11.3); RBC Red Blood Cell Count 3.41 M/uL (3.86-4.86)
--- NOTE | 2020-05-17 09:32 | RAD REPORT ---
EXAM DESCRIPTION: US - Extremity Nonvascular Limited - 05/17/2020 9:00 am CLINICAL HISTORY: Pain;Swelling COMPARISON: No comparisons TECHNIQUE: Real-time sonographic evaluation of the area of interest was performed left ankle. FINDINGS: Soft tissue edema with subcutaneous edema and skin thickening noted medial left ankle. Thi s is probably related to localized inflammation or infection. No well formed abscess collection evide nt.
[2020-05-17 09:40] LABS: C-Reactive Protein 18.9 mg/L (<3.00); Potassium 4.2 mmol/L (3.5-5.1)
--- NOTE | 2020-05-17 10:10 | RAD REPORT ---
EXAM DESCRIPTION: RAD - Ankle Left 3 View - 05/17/2020 9:25 am CLINICAL HISTORY: Pain;Swelling COMPARISON: Ankle Left 3 View dated 05/10/2020 FINDINGS: Mild moderate soft tissue swelling is seen about the ankle. No fracture seen. 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
--- NOTE | 2020-05-17 10:30 | ER ---
Nurse's Notes [facility] Megan Name: Melissa De Oliveira Age: 54 yrs Sex: Female : 1965 Arrival Date: 05/17/2020 Time: 08:10 Bed 8 Private MD: Diagnosis: Cellulitis of medial left ankle Presentation: 05/17 08:23 Chief complaint: Patient states: left foot swelling and redness since Friday. Was sv seen here last week for it and sent home with antibiotics but no improvement. Coronavirus screen: Client denies travel out of the [place] in the last 14 days. Client reports previous positive COVID test result. Date of collection: March 2020. Ebola Screen: No symptoms or risks identified at this time. Initial Sepsis Screen: Does the patient meet any 2 criteria? HR > 90 bpm. No. Patient's initial sepsis screen is negative. Does the patient have a suspected source of infection? Yes: Other: skin redness. Risk Assessment: Do you want to hurt yourself or someone else? Patient reports no desire to harm self or others. Onset of symptoms was May 10, 2020. 08:23 Method Of Arrival: Ambulatory sv 08:23 Acuity: DEYA 3 sv Historical: - Allergies: 08:25 Codeine; sv 08:25 Ritalin; sv 08:25 Tramadol HCl; sv - PMHx: 08:25 Diabetes - IDDM; neuropathy; sv - PSHx: 08:25 ; partial hysterectomy; Appendectomy; Cholecystectomy; sv - Immunization history:: Adult Immunizations up to date. - Social history:: Smoking status: Patient denies any tobacco usage or history of. Screenin:13 Abuse screen: Denies threats or abuse. Denies injuries from another. Nutritional hb screening: No deficits noted. Tuberculosis screening: No symptoms or risk factors identified. Fall Risk None identified. Assessment: 09:13 General: Appears in no apparent distress. Behavior is calm, cooperative. Pain: Pain hb currently is 8 out of 10 on a pain scale. Neuro: Level of Consciousness is awake, alert, obeys commands, Oriented to person, place, time, situation. Cardiovascular: Capillary refill < 3 seconds Patient's skin is warm and dry. Respiratory: Airway is patent Respiratory effort is even, unlabored, Respiratory pattern is regular, symmetrical. GI: No signs and/or symptoms were reported involving the gastrointestinal system. : No signs and/or symptoms were reported regarding the genitourinary system. EENT: No signs and/or symptoms were reported regarding the EENT system. Derm: Skin is pink, warm \T\ dry. redness and mild swelling noted to left foot and ankle. Musculoskeletal: No signs and/or symptoms reported regarding the musculoskeletal system. 09:58 Reassessment: Patient appears in no apparent distress at this time. Patient and/or hb family updated on plan of care and expected duration. Pain level reassessed. Patient is alert, oriented x 3, equal unlabored respirations, skin warm/dry/pink. Vital Signs: 08:21 BP 114 / 60; Pulse 102; Resp 18; Temp 97.7(O); Pulse Ox 100% on R/A; Weight 47.63 kg; em1 Height 5 ft. 4 in. (162.56 cm); Pain 7/10; 09:30 BP 127 / 73; Pulse 86; Resp 15; Pulse Ox 100% on R/A; hb 08:21 Body Mass Index 18.02 (47.63 kg, 162.56 cm) em1 ED Course: 08:10 Patient arrived in ED. mr 08:19 Baron Brewer MD is Attending Physician. kdr 08:25 Triage completed. sv 08:25 Arm band placed on Patient placed in an exam room, on a stretcher. sv 08:40 Mercedes Moran, KIRIT is Primary Nurse. hb 09:00 US Extrmty Nonvasular Limited In Process Unspecified. EDMS 09:04 Inserted saline lock: 22 gauge in right forearm, using aseptic technique. Blood hb collected. 09:13 Patient has correct armband on for positive identification. Bed in low position. Call hb light in reach. Side rails up X 1. 09:25 Ankle Left 3 View XRAY In Process Unspecified. EDMS 10:45 No provider procedures requiring assistance completed. IV discontinued, intact, hb bleeding controlled, No redness/swelling at site. Administered Medications: 09:00 Drug: morphine 4 mg Route: IVP; Site: right forearm; hb 09:40 Follow up: Response: No adverse reaction hb 09:00 Drug: Zofran (Ondansetron) 4 mg Route: IVP; Site: right forearm; hb 09:40 Follow up: Response: No adverse reaction hb 10:46 Drug: Cipro 500 mg Route: PO; hb 10:46 Follow up: Response: Medication administered at discharge. hb Outcome: 10:30 Discharge ordered by . kdr 10:45 Discharged to home via wheelchair. hb 10:45 Condition: stable 10:45 Discharge instructions given to patient, Instructed on discharge instructions, follow up and referral plans. medication usage, Demonstrated understanding of instructions, follow-up care, medications, Prescriptions given X 2. 10:56 Patient left the ED. hb Signatures: Dispatcher [employer] Li Chino, RN RN Baron Del Toro MD MD kdr Rivera, Silvina Hernandez, Jaiden 1 Mercedes Moran, KIRIT RN hb
--- NOTE | 2020-05-17 10:30 | EDPHYS ---
Physician Documentation [facility] Name: Melissa De Oliveira Age: 54 yrs Sex: Female : 1965 Arrival Date: 05/17/2020 Time: 08:10 Bed 8 Private MD: ED Physician Baron Brewer HPI: 05/17 14:50 This 54 yrs old Female presents to ER via Ambulatory with complaints of Feet kdr Swelling. 14:50 The patient presents with pain, swelling, tenderness. The complaints affect the left kdr medial ankle, medial aspect of left foot and dorsum of left foot. Context: The problem was sustained at home, resulted from an unknown cause, the patient can partially bear weight, the patient is able to ambulate, with mild difficulty. Onset: The symptoms/episode began/occurred gradually, at an unknown time. Over the last week. Modifying factors: The symptoms are alleviated by nothing. the symptoms are aggravated by movement, weight bearing. Associated signs and symptoms: The patient has no apparent associated signs or symptoms, Pertinent positives: warmth. Treatment prior to arrival includes: prescription medications, Keflex. Severity of symptoms: At their worst the symptoms were moderate, in the emergency department the symptoms are unchanged. The patient has not experienced similar symptoms in the past. The patient has been recently seen at the [facility] Emergency Department, last week. No improvement after a week of abx. States that it is not appreciable worse but no real improvement. Historical: - Allergies: 08:25 Codeine; sv 08:25 Ritalin; sv 08:25 Tramadol HCl; sv - PMHx: 08:25 Diabetes - IDDM; neuropathy; sv - PSHx: 08:25 ; partial hysterectomy; Appendectomy; Cholecystectomy; sv - Immunization history:: Adult Immunizations up to date. - Social history:: Smoking status: Patient denies any tobacco usage or history of. ROS: 14:50 Constitutional: Negative for fever, chills, and weight loss, Eyes: Negative for injury, kdr pain, redness, and discharge, ENT: Negative for injury, pain, and discharge, Neck: Negative for injury, pain, and swelling, Cardiovascular: Negative for chest pain, palpitations, and edema, Respiratory: Negative for shortness of breath, cough, wheezing, and pleuritic chest pain, Abdomen/GI: Negative for abdominal pain, nausea, vomiting, diarrhea, and constipation, Back: Negative for injury and pain, : Negative for injury, bleeding, discharge, and swelling, Skin: Negative for injury, rash, and discoloration, Neuro: Negative for headache, weakness, numbness, tingling, and seizure activity. Psych: Negative for depression, anxiety, suicide ideation, homicidal ideation, and hallucinations, Allergy/Immunology: Negative for hives, rash, and allergies, Endocrine: Negative for neck swelling, polydipsia, polyuria, polyphagia, and marked weight changes, Hematologic/Lymphatic: Negative for swollen nodes, abnormal bleeding, and unusual bruising. 14:50 MS/extremity: Positive for erythema, pain, swelling, tenderness, of the left medial ankle, medial aspect of left foot and dorsum of left foot. Exam: 14:50 Constitutional: This is a well developed, well nourished patient who is awake, alert, kdr and in no acute distress. Head/Face: Normocephalic, atraumatic. 14:50 Musculoskeletal/extremity: Extremities: grossly normal except: ROM: no acute changes, Circulation is intact in all extremities. Sensation intact. Compartment Syndrome exam of affected extremity: is normal. no numbness, no tingling, no sensation deficit, no palor, no weak pulses. Vital Signs: 08:21 BP 114 / 60; Pulse 102; Resp 18; Temp 97.7(O); Pulse Ox 100% on R/A; Weight 47.63 kg; em1 Height 5 ft. 4 in. (162.56 cm); Pain 7/10; 09:30 BP 127 / 73; Pulse 86; Resp 15; Pulse Ox 100% on R/A; hb 08:21 Body Mass Index 18.02 (47.63 kg, 162.56 cm) em1 MDM: 10:30 Patient medically screened. kdr 14:50 Data reviewed: vital signs, nurses notes, lab test result(s), radiologic studies. kdr Counseling: I had a detailed discussion with the patient and/or guardian regarding: the historical points, exam findings, and any diagnostic results supporting the discharge/admit diagnosis, lab results, radiology results, the need for outpatient follow up. 05/17 08:37 Order name: CBC with Diff; Complete Time: 10:11 kdr 05/17 08:37 Order name: Chem 7; Complete Time: 09:40 kdr 05/17 08:37 Order name: ESR; Complete Time: 10:11 kdr 05/17 08:37 Order name: CRP; Complete Time: 09:40 kdr 05/17 08:37 Order name: US Extrmty Nonvasular Limited; Complete Time: 09:40 kdr 05/17 08:37 Order name: Ankle Left 3 View XRAY; Complete Time: 10:34 kdr Administered Medications: 09:00 Drug: morphine 4 mg Route: IVP; Site: right forearm; hb 09:40 Follow up: Response: No adverse reaction hb 09:00 Drug: Zofran (Ondansetron) 4 mg Route: IVP; Site: right forearm; hb 09:40 Follow up: Response: No adverse reaction hb 10:46 Drug: Cipro 500 mg Route: PO; hb 10:46 Follow up: Response: Medication administered at discharge. hb Disposition: 05/17/20 10:30 Discharged to Home. Impression: Cellulitis of medial left ankle. - Condition is Stable. - Discharge Instructions: Cellulitis, Adult, Oemh-tc-Veyt. - Prescriptions for Cipro 500 mg Oral Tablet - take 1 tablet by ORAL route every 12 hours for 7 days; 14 tablet. ketorolac 10 mg Oral tablet - take 1 tablet by ORAL route every 4-6 hours not to exceed 40 mg in 24hrs; 12 tablet. - Medication Reconciliation Form, Thank You Letter, Antibiotic Education form. - Follow up: Private Physician; When: 2 - 3 days; Reason: If symptoms return, Further diagnostic work-up, Recheck today's complaints, Continuance of care, Re-evaluation by your physician. - Problem is an ongoing problem. - Symptoms are unchanged. Signatures: Dispatcher [facility] Li Garzon RN RN Baron Brewer MD MD [facility] Mercedes Moran RN RN Corrections: (The following items were deleted from the chart) 10:56 10:30 05/17/2020 10:30 Discharged to Home. Impression: Cellulitis of medial left ankle. hb Condition is Stable. Forms are Medication Reconciliation Form, Thank You Letter, Antibiotic Education, Prescription Opioid Use. Follow up: Private Physician; When: 2 - 3 days; Reason: If symptoms return, Further diagnostic work-up, Recheck today's complaints, Continuance of care, Re-evaluation by your physician. Problem is an ongoing problem. Symptoms are unchanged. kdr
[2020-05-17] MEDS ORDERED: CIPROFLOXACIN HCL 500 MG TAB ONE (10:54)
[2020-05-17 11:01] VITALS: TEMP 97.7; O2SAT 100
[2020-05-17 11:03] VITALS: BP 127/73
== END 2020-05-17 10:56 | disposition home or self-care (01) ==
LOC: ER 08:04
DX: L03.116 Cellulitis of left lower limb (principal); Z88.5 Allergy status to narcotic agent; Z88.8 Allergy status to other drugs, medicaments and biological substances
CPT/HCPCS: 85025; 80048; 36415; 85652; 86140; 73610; 76882; 96375; 96374; 99284; J2405

== ENCOUNTER 2020-05-23 07:49 | Inpatient (IN) | payer OTHER, SELFPAY ==
--- NOTE | 2020-05-23 08:45 | RAD REPORT ---
EXAM DESCRIPTION: Marco A Single View05/23/2020 8:29 am CLINICAL HISTORY: Cough COMPARISON: April 2020 FINDINGS: Prominent nipple shadows. The lungs appear clear of acute infiltrate. The heart is normal size IMPRESSION: No acute abnormalities displayed
[2020-05-23 08:47] LABS: Absolute Lymphocytes (CBC) 2.2 K/uL (0.7-4.9); Basophils % 0.9 % (0-1.3); Hematocrit 25.7 % (36.0-45.0); Lymphocytes % 29.6 % (15.3-44.8); MPV 7.4 fL (7.6-11.3); RBC Red Blood Cell Count 3.18 M/uL (3.86-4.86)
[2020-05-23 08:58] LABS: Protime INR 0.99
[2020-05-23] MEDS ORDERED: ONDANSETRON 4 MG/2 ML VIAL ONE ×2 (09:01→16:39)
[2020-05-23] MEDS ORDERED: NA CHLORIDE 0.9% 1,000 ML ONE (09:01)
[2020-05-23] MEDS ORDERED: MORPHINE 2 MG/ML SYR ONE ×2 (09:01→11:24)
[2020-05-23 09:09] LABS: ALT/SGPT 14 U/L (12-78); AST/SGOT 10 U/L (15-37); Albumin 3.1 g/dL (3.4-5.0); Alkaline Phosphatase 165 U/L (45-117); BUN Blood Urea Nitrogen 28 mg/dL (7-18); Bicarbonate 29 mmol/L (21-32); Bilirubin Direct < 0.1 mg/dL (0-0.2); Bilirubin Total 0.3 mg/dL (0.2-1.0); Lipase 326 U/L (73-393); Magnesium 2.7 mg/dL (1.8-2.4); NT PRO-BNP 218 pg/mL (<125); Potassium 4.6 mmol/L (3.5-5.1); Protein, Total 8.3 g/dL (6.4-8.2); Sodium Level 132 mmol/L (136-145); Troponin (Emerg Dept Use Only) < 0.02 ng/mL (0.0-0.045)
[2020-05-23 09:10] LABS: Glucose Level 458 mg/dL (74-106)
--- NOTE | 2020-05-23 09:30 | ER ---
Nurse's Notes [facility] Name: Melissa De Oliveira Age: 54 yrs Sex: Female : 1965 Arrival Date: 05/23/2020 Time: 07:52 Bed 4 Private MD: Diagnosis: Cellulitis and acute lymphangitis of other parts of limb-left foot/ charcot foot;Type 1 diabetes mellitus-uncontrolled;SARS-associated coronavirus as the cause of diseases classified elsewhere-Covid 19 positive Presentation: 05/23 08:04 Chief complaint: Left foot swelling and pain x 3 weeks. Recently seen in ED for same hb s/s, completed Cipro, reports pain and swelling is worse. Coronavirus screen: At this time, the client does not indicate any symptoms associated with coronavirus-19. Ebola Screen: No symptoms or risks identified at this time. Initial Sepsis Screen: Does the patient meet any 2 criteria? HR > 90 bpm. No. Patient's initial sepsis screen is negative. Does the patient have a suspected source of infection? No. Patient's initial sepsis screen is negative. Risk Assessment: Do you want to hurt yourself or someone else? Patient reports no desire to harm self or others. Onset of symptoms was April 2020. 08:04 Method Of Arrival: Ambulatory hb 08:04 Acuity: DEYA 3 hb Historical: - Allergies: 08:07 Codeine; hb 08:07 Ritalin; hb 08:07 Tramadol HCl; hb - Home Meds: 08:07 gabapentin Oral [Active]; Levemir 100 unit/mL subcutaneous tab [Active]; mirtazapine 30 hb mg Oral tab 1 tab once daily [Active]; Tresiba FlexTouch U-100 100 unit/mL (3 mL) subcutaneous inpn [Active]; - PMHx: 08:07 Diabetes - IDDM; neuropathy; hb - PSHx: 08:07 ; partial hysterectomy; Appendectomy; Cholecystectomy; hb - Immunization history:: Adult Immunizations up to date. - Social history:: Smoking status: Patient denies any tobacco usage or history of. Screenin:53 Abuse screen: Denies threats or abuse. Denies injuries from another. Nutritional ss screening: No deficits noted. Tuberculosis screening: Never had TB. Fall Risk None identified. Assessment: 08:15 General: Appears in no apparent distress. comfortable, Behavior is calm, cooperative, ss Denies fever, feeling ill, fatigue, chills. Pain: Complains of pain in left ankle and dorsum of left foot and instep of left foot and medial aspect of left foot Pain currently is 8 out of 10 on a pain scale. Quality of pain is described as aching, tender, Is continuous, Aggravated by increased activity, weight bearing. Neuro: Level of Consciousness is awake, alert, obeys commands, Oriented to person, place, time, situation. Cardiovascular: Capillary refill < 3 seconds is brisk in bilateral fingers Patient's skin is warm and dry. Chest pain is denied. Respiratory: Airway is patent Respiratory effort is even, unlabored, Respiratory pattern is regular, symmetrical. GI: Reports indigestion, Patient currently denies diarrhea, nausea, vomiting. : No signs and/or symptoms were reported regarding the genitourinary system. EENT: Nares are clear Oral mucosa is moist. Throat is clear. Derm: Skin is intact, is healthy with good turgor, Skin is pink, warm \T\ dry. normal. Musculoskeletal: Circulation, motion, and sensation intact. Range of motion: intact in all extremities, Swelling present in left ankle and dorsum of left foot and instep of left foot and medial aspect of left heel and left medial malleolus and medial aspect of left foot. 08:53 Reassessment: XRAY AT BEDSIDE. ss 10:18 Reassessment: Patient is alert, oriented x 3, equal unlabored respirations, skin ss warm/dry/pink. COVID test sent. Awaiting for Dr. Jimenez to discuss plan of care with patient. Vital Signs: 08:04 BP 166 / 93; Pulse 111; Resp 16; Temp 98.2; Pulse Ox 100% on R/A; Pain 8/10; hb 09:00 BP 145 / 89; Pulse 106; Resp 16; Pulse Ox 99% ; sv ED Course: 07:52 Patient arrived in ED. as 08:01 Yogesh Jimenez MD is Attending Physician. thomas 08:04 Arm band placed on. hb 08:05 Triage completed. hb 08:29 XRAY Chest (1 view) In Process Unspecified. EDMS 08:47 Inserted saline lock: 20 gauge in right forearm, using aseptic technique. Blood ss collected. 09:01 Foot Left 3 View XRAY In Process Unspecified. EDMS 09:07 Anat Hendrix, RN is Primary Nurse. ss 09:10 Notified ED physician of a critical lab result(s). glucose 458. hb 09:25 Carina Beach MD is Hospitalizing Provider. thomas 09:53 US Extremity Venous Unilateral Ltd In Process Unspecified. EDMS 10:00 Patient has correct armband on for positive identification. Bed in low position. Call ss light in reach. 11:15 No provider procedures requiring assistance completed. Patient admitted, IV remains in ss place. Administered Medications: 08:51 Drug: NS 0.9% 1000 ml Route: IV; Rate: 125 ml/hr; Site: right forearm; ss 11:14 Follow up: IV Status: Infusion continued upon admission ss 08:51 Drug: Zofran (Ondansetron) 4 mg Route: IVP; Site: right forearm; ss 10:00 Follow up: Response: No adverse reaction ss 09:07 Drug: morphine 2 mg Route: IVP; Site: left antecubital; ss 10:00 Follow up: Response: No adverse reaction; Pain is decreased ss 09:59 Drug: Zosyn 3.375 grams Route: IVPB; Infused Over: 60 mins; Site: right forearm; ss 11:00 Follow up: IV Status: Completed infusion; IV Intake: 100ml ss 10:00 Not Given (Physician Discretion; order changed to 5 units): Insulin Regular Human 10 ss units IVP once 10:00 Not Given (Other Intervention Used; order changed to 5 units): Insulin Regular Human 10 ss units Sub-Q once 10:01 Drug: Insulin Regular Human 5 units {Co-Signature: felix (Li Garzon RN).} Route: ss Sub-Q; Site: right upper arm; 11:11 Follow up: Response: No adverse reaction; Blood sugar is lowered ss 10:02 Drug: Insulin Regular Human 5 units {Co-Signature: felix (Li Garzon RN).} Route: ss IVP; Site: right forearm; 11:11 Follow up: Response: No adverse reaction; Blood sugar is lowered ss 11:08 Drug: vancoMYCIN 1 grams Route: IVPB; Infused Over: 2 hrs; Site: right wrist; ss 11:14 Follow up: IV Status: Completed infusion; Infusion continued upon admission ss 11:14 Drug: morphine 2 mg Route: IVP; Site: right forearm; 11:20 Follow up: Response: No adverse reaction; Pain is decreased Point of Care Testing: Blood Glucose: 10:55 Blood Glucose: 230 mg/dL; hb Ranges: Intake: 11:00 IV: 100ml; Total: 100ml. Outcome: 09:29 Decision to Hospitalize by Provider. [facility] 11:15 Admitted to ER Hold. Please see [facility] for further documentation. 11:15 Condition: good 11:15 Instructed on the need for admit. 16:25 Patient left the ED. Signatures: Dispatcher [employer] Li Chino RN RN Yogesh Jimenez MD MD cha Martinez, Amelia as Smirch, Shelby, RN RN Mercedes Moran RN RN Li Garzon RN
--- NOTE | 2020-05-23 09:30 | EDPHYS ---
Physician Documentation [facility] Name: Melissa De Oliveira Age: 54 yrs Sex: Female : 1965 Arrival Date: 05/23/2020 Time: 07:52 Bed 4 Private MD: Yogesh Meléndez HPI: 05/23 09:18 This 54 yrs old Female presents to ER via Ambulatory with complaints of Feet thomas Swelling. 09:18 This 54 yrs old Female presents to ER via Ambulatory with complaints of Feet thomas Swelling. 09:18 The patient presents with decreased range of motion, a deformity, pain. The complaints thomas affect the left medial ankle and medial aspect of left foot. Context: The problem was sustained at an unknown site, resulted from an unknown cause, the patient can partially bear weight, must have assistance, Problem is a result from a previous injury: No. Onset: The symptoms/episode began/occurred 2 week(s) ago. Modifying factors: The symptoms are alleviated by elevating leg, remaining still, the symptoms are aggravated by movement. Associated signs and symptoms: Pertinent positives: fever, warmth. The patient presents with decreased range of motion, pain, that is acute. The complaints affect the left foot, left medial malleolus, left Achilles, medial aspect of left heel and instep of left foot. Context: The problem was sustained at an unknown location. Historical: - Allergies: 08:07 Codeine; hb 08:07 Ritalin; hb 08:07 Tramadol HCl; hb - Home Meds: 08:07 gabapentin Oral [Active]; Levemir 100 unit/mL subcutaneous tab [Active]; mirtazapine 30 hb mg Oral tab 1 tab once daily [Active]; Tresiba FlexTouch U-100 100 unit/mL (3 mL) subcutaneous inpn [Active]; - PMHx: 08:07 Diabetes - IDDM; neuropathy; hb - PSHx: 08:07 ; partial hysterectomy; Appendectomy; Cholecystectomy; hb - Immunization history:: Adult Immunizations up to date. - Social history:: Smoking status: Patient denies any tobacco usage or history of. ROS: 09:18 Constitutional: Negative for fever, chills, and weight loss, Eyes: Negative for injury, thomas pain, redness, and discharge, ENT: Negative for injury, pain, and discharge, Neck: Negative for injury, pain, and swelling, Cardiovascular: Negative for chest pain, palpitations, and edema, Respiratory: Negative for shortness of breath, cough, wheezing, and pleuritic chest pain, Abdomen/GI: Negative for abdominal pain, nausea, vomiting, diarrhea, and constipation, Back: Negative for injury and pain, : Negative for injury, bleeding, discharge, and swelling, Neuro: Negative for headache, weakness, numbness, tingling, and seizure, Psych: Negative for depression, anxiety, suicide ideation, homicidal ideation, and hallucinations, Allergy/Immunology: Negative for hives, rash, and allergies, Endocrine: Negative for neck swelling, polydipsia, polyuria, polyphagia, and marked weight changes. 09:18 MS/extremity: Positive for decreased range of motion, erythema, pain, rash, swelling, tenderness, warmth, of the medial aspect of left heel, instep of left foot and dorsum of left foot. Exam: 09:18 Constitutional: This is a well developed, well nourished patient who is awake, alert, thomas and in no acute distress. Head/Face: Normocephalic, atraumatic. Eyes: Pupils equal round and reactive to light, extra-ocular motions intact. Lids and lashes normal. Conjunctiva and sclera are non-icteric and not injected. Cornea within normal limits. Periorbital areas with no swelling, redness, or edema. ENT: Nares patent. No nasal discharge, no septal abnormalities noted. Tympanic membranes are normal and external auditory canals are clear. Oropharynx with no redness, swelling, or masses, exudates, or evidence of obstruction, uvula midline. Mucous membranes moist. Neck: Trachea midline, no thyromegaly or masses palpated, and no cervical lymphadenopathy. Supple, full range of motion without nuchal rigidity, or vertebral point tenderness. No Meningismus. Chest/axilla: Normal chest wall appearance and motion. Nontender with no deformity. No lesions are appreciated. Respiratory: Lungs have equal breath sounds bilaterally, clear to auscultation and percussion. No rales, rhonchi or wheezes noted. No increased work of breathing, no retractions or nasal flaring. Abdomen/GI: Soft, non-tender, with normal bowel sounds. No distension or tympany. No guarding or rebound. No evidence of tenderness throughout. Back: No spinal tenderness. No costovertebral tenderness. Full range of motion. Neuro: Awake and alert, GCS 15, oriented to person, place, time, and situation. Cranial nerves II-XII grossly intact. Motor strength 5/5 in all extremities. Sensory grossly intact. Cerebellar exam normal. Normal gait. Psych: Awake, alert, with orientation to person, place and time. Behavior, mood, and affect are within normal limits. 09:18 Cardiovascular: Rate: tachycardic, actual rate is 111 bpm, Rhythm: regular, Pulses: Pulses are 4+ in bilateral radial, brachial, femoral, popliteal, posterior tibial and and dorsalis pedis arteries.. Heart sounds: normal, Edema: 2+ edema to level of left ankle, left foot and left toes, JVD: is not appreciated. 09:24 ECG was reviewed by the Attending Physician. [facility] Vital Signs: 08:04 BP 166 / 93; Pulse 111; Resp 16; Temp 98.2; Pulse Ox 100% on R/A; Pain 8/10; hb 09:00 BP 145 / 89; Pulse 106; Resp 16; Pulse Ox 99% ; sv MDM: 08:03 Patient medically screened. thomas 09:22 Differential diagnosis: closed fracture, tendonitis, fracture, sprain. Data reviewed: [facility] vital signs, nurses notes, lab test result(s), EKG, radiologic studies, plain films. Data interpreted: quality assurance monitor chassis: rate is 106 beats/min, rhythm is regular. Test interpretation: by ED physician or midlevel provider: ECG, plain radiologic studies. Counseling: I had a detailed discussion with the patient and/or guardian regarding: the historical points, exam findings, and any diagnostic results supporting the discharge/admit diagnosis, lab results, radiology results. 05/23 08:02 Order name: Basic Metabolic Panel; Complete Time: :15 [facility] 05/23 08:02 Order name: CBC with Diff; Complete Time: :15 [facility] 05/23 08:02 Order name: LFT's; Complete Time: :15 thomas 05/23 08:02 Order name: Magnesium; Complete Time: :15 [facility] 05/23 08:02 Order name: NT PRO-BNP; Complete Time: :15 [facility] 05/23 08:02 Order name: PT-INR; Complete Time: :15 [facility] 05/23 08:02 Order name: Troponin (emerg Dept Use Only); Complete Time: 09:15 [facility] 05/23 08:02 Order name: Lipase; Complete Time: 09:15 [facility] 05/23 08:36 Order name: Blood Culture Adult (2) [facility] 05/23 08:36 Order name: Sed Rate [facility] 05/23 08:37 Order name: Blood Culture EDMS 05/23 08:37 Order name: Sedimentation Rate, Westergren; Complete Time: 12:58 EDMS 05/23 09:41 Order name: COVID-19 : Document "Date of Symptom Onset" if Symptomatic. 05/23 11:05 Order name: Glucose, Ancillary Testing; Complete Time: 12:58 EDMS 05/23 08:02 Order name: XRAY Chest (1 view); Complete Time: 09:15 [facility] 05/23 08:36 Order name: Foot Left 3 View XRAY; Complete Time: 12:58 [facility] 05/23 08:44 Order name: US Extremity Venous Unilateral Ltd; Complete Time: 12:58 [facility] 05/23 11:14 Order name: Basic Metabolic Panel EDMS 05/23 11:14 Order name: Basic Metabolic Panel EDMS 05/23 11:14 Order name: Protime (+INR) EDMS 05/23 11:14 Order name: Protime (+INR) EDMS 05/23 11:14 Order name: CBC with Automated Diff EDMS 05/23 11:14 Order name: CBC with Automated Diff EDMS 05/23 11:14 Order name: PTT, Activated Partial Thromb EDMS 05/23 11:14 Order name: PTT, Activated Partial Thromb EDMS 05/23 12:45 Order name: SARS-COV-2 RT PCR; Complete Time: 12:58 EDMS 05/23 13:57 Order name: Glucose, Ancillary Testing EDMS 05/23 08:02 Order name: EKG; Complete Time: 08:03 [facility] 05/23 08:02 Order name: Cardiac monitoring; Complete Time: 08:52 [facility] 05/23 08:02 Order name: EKG - Nurse/Tech; Complete Time: 08:52 [facility] 05/23 08:02 Order name: IV Saline Lock; Complete Time: 08:52 [facility] 05/23 08:02 Order name: Labs collected and sent; Complete Time: 08:52 [facility] 05/23 08:02 Order name: O2 Per Protocol; Complete Time: 08:52 [facility] 05/23 08:02 Order name: O2 Sat Monitoring; Complete Time: 08:52 thomas 05/23 11:14 Order name: CONS Pharmacy Consult EDMS 05/23 11:14 Order name: CONS Physician Consult EDMS EC:24 Rate is 106 beats/min. Rhythm is regular. QRS [place] is Normal. [place] interval is normal. thomas QRS interval is normal. QT interval is normal. No Q waves. T waves are Normal. No ST changes noted. Interpreted by me. Reviewed by me. Administered Medications: 08:51 Drug: NS 0.9% 1000 ml Route: IV; Rate: 125 ml/hr; Site: right forearm; ss 11:14 Follow up: IV Status: Infusion continued upon admission ss 08:51 Drug: Zofran (Ondansetron) 4 mg Route: IVP; Site: right forearm; ss 10:00 Follow up: Response: No adverse reaction ss 09:07 Drug: morphine 2 mg Route: IVP; Site: left antecubital; ss 10:00 Follow up: Response: No adverse reaction; Pain is decreased ss 09:59 Drug: Zosyn 3.375 grams Route: IVPB; Infused Over: 60 mins; Site: right forearm; ss 11:00 Follow up: IV Status: Completed infusion; IV Intake: 100ml ss 10:00 Not Given (Physician Discretion; order changed to 5 units): Insulin Regular Human 10 ss units IVP once 10:00 Not Given (Other Intervention Used; order changed to 5 units): Insulin Regular Human 10 ss units Sub-Q once 10:01 Drug: Insulin Regular Human 5 units {Co-Signature: felix (Li Garzon RN).} Route: ss Sub-Q; Site: right upper arm; 11:11 Follow up: Response: No adverse reaction; Blood sugar is lowered ss 10:02 Drug: Insulin Regular Human 5 units {Co-Signature: felix (Li Garzon RN).} Route: ss IVP; Site: right forearm; 11:11 Follow up: Response: No adverse reaction; Blood sugar is lowered ss 11:08 Drug: vancoMYCIN 1 grams Route: IVPB; Infused Over: 2 hrs; Site: right wrist; ss 11:14 Follow up: IV Status: Completed infusion; Infusion continued upon admission ss 11:14 Drug: morphine 2 mg Route: IVP; Site: right forearm; ss 11:20 Follow up: Response: No adverse reaction; Pain is decreased Point of Care Testing: Blood Glucose: 10:55 Blood Glucose: 230 mg/dL; hb Ranges: Critical Glucose Levels:Adult <50 mg/dl or >400 mg/dl <40 mg/dl or >180 mg/dl Disposition: 05/23/20 09:29 Hospitalization ordered by Carina Beach for Inpatient Admission. Preliminary diagnosis are Cellulitis and acute lymphangitis of other parts of limb - left foot/ charcot foot, Type 1 diabetes mellitus - uncontrolled, SARS-associated coronavirus as the cause of diseases classified elsewhere - Covid 19 positive. - Bed requested for Telemetry/MedSurg (Inpatient). - Status is Inpatient Admission. ss - Condition is Stable. - Problem is new. - Symptoms are unchanged. Signatures: Dispatcher [employer] EDMS Izabela Bergman Corey, MD MD cha Smirch, Shelby, RN RN Mercedes Moran RN RN Li Garzon RN Corrections: (The following items were deleted from the chart) 10:47 09:29 Hospitalization Ordered by Carina Beach MD for Inpatient Admission. Preliminary thomas diagnosis is Cellulitis and acute lymphangitis of other parts of limb - left foot; Type 1 diabetes mellitus - uncontrolled. Bed requested for Telemetry/MedSurg (Inpatient). Status is Inpatient Admission. Condition is Stable. Problem is new. Symptoms are unchanged. thomas 11:27 10:47 05/23/2020 09:29 Hospitalization Ordered by Carina Beach MD for Inpatient bd Admission. Preliminary diagnosis is Cellulitis and acute lymphangitis of other parts of limb - left foot/ charcot foot; Type 1 diabetes mellitus - uncontrolled. Bed requested for Telemetry/MedSurg (Inpatient). Status is Inpatient Admission. Condition is Stable. Problem is new. Symptoms are unchanged. thomas 12:57 11:27 05/23/2020 09:29 Hospitalization Ordered by Carina Beach MD for Inpatient thomas Admission. Preliminary diagnosis is Cellulitis and acute lymphangitis of other parts of limb - left foot/ charcot foot; Type 1 diabetes mellitus - uncontrolled. Bed requested for [facility] ER HOLD. Status is Inpatient Admission. Condition is Stable. Problem is new. Symptoms are unchanged. bd 15:38 12:57 05/23/2020 09:29 Hospitalization Ordered by Carina Beach MD for Inpatient bd Admission. Preliminary diagnosis is Cellulitis and acute lymphangitis of other parts of limb - left foot/ charcot foot; Type 1 diabetes mellitus - uncontrolled; SARS-associated coronavirus as the cause of diseases classified elsewhere - Covid 19 positive. Bed requested for [facility] ER HOLD. Status is Inpatient Admission. Condition is Stable. Problem is new. Symptoms are unchanged. thomas 16:25 15:38 05/23/2020 09:29 Hospitalization Ordered by Carina Beach MD for Inpatient ss Admission. Preliminary diagnosis is Cellulitis and acute lymphangitis of other parts of limb - left foot/ charcot foot; Type 1 diabetes mellitus - uncontrolled; SARS-associated coronavirus as the cause of diseases classified elsewhere - Covid 19 positive. Bed requested for Telemetry/MedSurg (Inpatient). Status is Inpatient Admission. Condition is Stable. Problem is new. Symptoms are unchanged. bd
--- NOTE | 2020-05-23 09:34 | RAD REPORT ---
EXAM DESCRIPTION: RAD - Foot Left 3 View - 05/23/2020 9:22 am CLINICAL HISTORY: Left Foot pain FINDINGS: Dislocations involve the first and second MTP joints. Cortical irregularity involves the m edial cuneiform bone which may indicate fracture. There probably is a subtle dislocation of third proximal metatarsal. Widening of the calcaneal cuboid joint probably secondary to ligamentous disruption
[2020-05-23] MEDS ORDERED: PIPER/TAZO/NS 3.375gm 3.375 GM/100 ML BAG ONE (09:53)
[2020-05-23] MEDS ORDERED: INSULIN -REGULAR HUMAN 50 UNIT/0.5 ML ML ONE (09:53)
--- NOTE | 2020-05-23 10:10 | RAD REPORT ---
EXAM DESCRIPTION: USExtremity Venous Uni Ltd05/23/2020 9:53 am CLINICAL HISTORY: left leg pain and swelling. COMPARISON: None. FINDINGS: Left common femoral, superficial femoral, popliteal and posterior tibial veins are compre ssible and demonstrate augmentation. Doppler demonstrates good flow. 1.2 x 1.2 x 0.3 centimeter heterogeneous fluid collection medial left foot IMPRESSION: No evidence of deep venous thrombosis involving the left lower extremity. 1.2 x 1.2 x 0.3 centimeter heterogeneous fluid collection medial left foot may represent a small renetta kalyan or abscess
[2020-05-23] MEDS ORDERED: FAMOTIDINE 20 MG/2 ML VIAL IV ONE (10:12)
[2020-05-23] MEDS ORDERED: VANCOMYCIN/NS 1 gm 1 GM/250 ML BAG IV SCH (10:30)
[2020-05-23] MEDS: NA CHLORIDE 0.9% 1,000 ML IV SCH ×2 (12:00→18:42)
[2020-05-23] MEDS ORDERED: Levofloxacin500mg IV 500 MG/100 ML BAG IV SCH (12:00)
[2020-05-23] MEDS ORDERED: INFLUENZA VACCINE (for 3y+) 0.5 ML DOSE IMVAC ONE (13:00)
[2020-05-23] MEDS: ONDANSETRON 4 MG/2 ML VIAL IV PRN ×2 (16:24→23:41)
[2020-05-23] MEDS: MORPHINE 2 MG/ML SYR IV PRN (23:37)
[2020-05-24] MEDS: NA CHLORIDE 0.9% 1,000 ML IV SCH ×3 (01:20→14:40)
--- OUTSIDE RECORDS SUMMARY | 2020-05-24 03:01 | XMS REPORT | Clinical Summary ---
:1965 Author Organization [facility] Address [address] [place] [address] Care Team Providers Name Role Phone Denae [...] VACCINE (#1) 2019 Results Not on fileafter 05/23/2019
--- OUTSIDE RECORDS SUMMARY | 2020-05-24 03:08 | XMS REPORT | Continuity of Care Document ---
:1965 Author Organization [facility] Cardback Information [place] Care Team Providers Name Role Phone [facility] I AM AT Unavailable Un available Problems Problem Status Onset Classification Date Comments Sourc e Date Reported Radiculopathy, 02/26/20 02/28/2017 [facility] cervical region 17 Hosp ital Hyperglycemia, 02/26/20 03/01/2017 [facility] unspecified 17 Hospital Fever, 02/26/20 03/01/2017 [place] [facility] unspecified 17 Hospital Displaced 12/28/19 12/30/2016 [place] [facility] unspecified 17 Hospital fracture of right lesser toe(s), initial encounter for closed fracture HURT TOES Active 12/28/[address] ABDOMINAL PAIN Active 02/07/20 [address] [place] EGD Active 02/05/20 [facility] [place] 12 BLOOD SUGAR Active 11/28/19 [place] PROBLEM [...] [address] [place] BLEEDING ABD PAIN Active 01/06/20 [facility] [place] 10 EAR PAIN Active 10/10/19 [facility] [place] UPPER ABDOMINAL Active 09/21/19 [place] [facility] PAIN [place] ABD PAIN, HIGH Active 08/16/19 [facility] SUGAR 10 [place] Abdominal pain Active Problem 02/19/2012 [facility] [place] Cellulitis Active Problem 02/19/2012 [facility] [place] Chest pain Active Problem 02/19/2012 [facility] [place] Hyperglycemia Active Problem 02/19/2012 [facility] [place] UTI - Urinary Active Problem 02/19/2012 tract infection [facility] [place] Diabetes mellitus Active Problem 03/01/2017 [facility] [place] (disorder) [facility] Restless legs Active Problem 03/01/2017 [...] G.I. No Longer Cocktail = Active 2016 [place] antacid with Hospital simethicone 22.5 mL - lidocaine viscous 7.5 mL Zofran Notes: (Same Inactive as: Zofran) 2016 [place] MEDICATION Hospital WASTE Product Size: 4 mg Product Wasted: ___ mg Zofran Notes: (Same Inactive as: Zofran) 2016 [place] MEDICATION Hospital WASTE Product Size: 4 mg Product Wasted: ___ mg Morphine Notes: (Same Inactive as:MORPhine 2017 [place] Sulfate) Hospital Lidocaine Notes: Inactive Hydrochloride 10 Preservative 2016 [facility] MG/ML Injectable free. (Same Ho spital Solution as: Xylocaine MPF) Insulin regular 60 units) Inactive WASTE: F/P - 2017 [place] Black; E - Hospital Municipal Trash Bin Stable for 28 days at room temperature Expires in days from Date Sodium Chloride 2,000 mL, 1000 Inactive 0.9% (Bolus) IV ml/hr, Infuse 2016 [facility] Over: 2 hr, Hospital Route: IV, 2,000, Drug form: INJ, ONCE, Priority: STAT, Dosing Weight 49.545 kg, Start date: 02/25/17 20:22:00 [employer], Stop date: 02/25/17 20:22:00 [employer] ibuprofen 800 mg 800 mg = 1 [...] (Same No Longer as: Valium) Active 2016 [facility] Ketorolac 4 days No Longer MEDICATION Active 2016 [place] WASTE Hospital Product Size: 30 mg Product Wasted: ___ mg Ciprofloxacin 500 500 mg = 1 Active MH MG Oral Tablet tab, PO, Q12H, 2017 [facility] [Cipro] for UTI, X 3 Hospital day, # 6 tab, 0 Refill(s), Pharmacy: [facility]/pharmacy #[id number] Humalog 100 4 unit, SUB-Q, Active units/mL TID-Before 2017 [place] Meals, hold Hospital insulin injection if your [...] unit, Active 100 UNT/ML SUB-Q, Daily, 2016 [place] Injectable # 10 mL, 0 Hospital Solution [Lantus] Refill(s), Pharmacy: [facility]/pharmacy #[id number] Calcium Gluconate Notes: WASTE: Inactive F/P - Sink; E 2016 [place] - [facility] Hospital Trash Bin Calcium Carbonate Notes: (Same Inactive As: [facility]) 2017 [place] Calcium Hospital Carbonate 500 mg = 200 mg elemental calcium Dose = mg calcium carbonate ( mg elemental calcium) Insulin Glargine Notes: Same as No Longer 100 UNT/ML Lantus Active 2016 [place] Injectable Solostar PEN Hospital Solution [Lantus] Do not hold insulin without contacting prescriber "single patient use only" WASTE: F/P - Black; E - Municipal Trash Bin Stable for 28 days at room temperature. Expires in days from Date Requip Notes: (Same No Longer as: Requip) Active 2017 [place] [facility] Lyrica Notes: (Same No Longer as: Lyrica) Active 2017 [facility] Calcium Carbonate Notes: (Same Inactive As: Tums) 2017 [place] Calcium Hospital Carbonate 500 mg = 200 mg elemental calcium Dose = mg calcium carbonate ( mg elemental calcium) Protonix Notes: Tablet No Longer should not be Active 2017 [place] chewed or Hospital crushed. (Same as: Protonix) Magnesium Oxide Notes: (Same No Longer H as: Mag-Ox Active 2017 [place] 400) Magnesium Hospital oxide [id number] elemental magnesium Dose=____mg magnesium oxide (___mg elemental magnesium) Ketorolac 4 days No Longer MEDICATION Active 2017 [place] WASTE Hospital Product Size: 30 mg Product Wasted: ___ mg Docusate Notes: (Same No Longer as: Colace) Active 2016 [place] (Do Not Crush) [facility] Insulin Glargine 50 units, No Longer 100 UNT/ML SUB-Q, Daily, Active 2016 [place] Injectable 0 Refill(s) [facility] Solution [Lantus] ropinirole 2 MG 2 mg = 1 tab, Active Oral Tablet PO, Bedtime, 0 2016 [place] [facility] [Requip] Refill(s) [facility] pregabalin 75 MG 75 mg = 1 cap, Active Oral Capsule PO, Bedtime, 0 2016 [facility] [Lyrica] Refill(s) [facility] Insulin Lispro 60 units) Inactive WASTE: F/P - 2017 [place] Black; E - Hospital Municipal Trash Bin Stable for 28 days at room temperature. Expires in days from Date Ceftriaxone Notes: (Same No Longer As: Rocephin). Active 2017 [place] Use with 100 Hospital mL NS and infuse over 30 min MEDICATION WASTE Product Size: 1000 mg Product Wasted: ___ mg Hydralazine Notes: (Same No Longer as: Active 2016 [place] Apresoline) [facility] Push over 5 minutes Glucagon 1 mg, Route: No Longer IM, Drug form: Active 2016 [place] PDR/INJ, PRN, Hospital Dosing Weight 51.449, kg, PRN Blood Glucose Results, Start date: 01/25/17 1:35:00 CDT, Duration: 30 day, Stop date: 02/24/17 0:34:00 [employer] Insulin Lispro 60 units) No Longer WASTE: F/P - Active 2016 [place] Black; E - Hospital Municipal Trash Bin Stable for 28 days at room temperature. Expires in days from Date Dextrose 50% 25 gm, 50 mL, No Longer Syringe Route: IVP, Active 2016 [place] Drug Form: Hospital INJ, Dosing Weight 51.449, kg, PRN, PRN Blood Glucose Results, Start date: 01/25/17 1:35:00 CDT, Duration: 30 day, Stop date: 02/24/17 0:34:00 [employer] Acetaminophen Notes: Do not No Longer exceed 4 Active 2017 [place] gm/day. (Same Hospital as: Tylenol) Acetaminophen 325 Notes: (Same Inactive MG / Hydrocodone as: [place] 2017 [place] Bitartrate 5 MG 325/5) Do not H ospital Oral Tablet exceed 4gm/day of acetaminophen. Ondansetron Notes: (Same No Longer as: Zofran) Active 2017 [place] MEDICATION Hospital WASTE Product Size: 4 mg Product Wasted: ___ mg sodium chloride 1,000 mL, No Longer 0.9% 1000 ml INJ Rate: 75 Active 2017 [place] 1,000 mL ml/hr, Infuse Hospital over: 13.3 hr, Route: IV, Dosing Weight 51.449 kg, Total Volume: 1,000, Start date: 01/25/17 1:32:00 CDT, Stop date: 02/24/17 1:31:00 [employer] Saline Flush 0.9% Notes: (Same No Longer as: BD Active 2016 [place] Posiflush) Hospital Ketorolac 15 mg, Route: Inactive IV, ONCE, 2016 [place] Dosing Weight Hospital 52.273, kg, Start date: 01/25/17 0:00:00 CDT, Stop date: 01/25/17 0:00:00 CDT Famotidine 20 mg, Route: Inactive IVP, ONCE, 2016 [place] Dosing Weight Hospital 52.273, kg, Priority: STAT, [...] 4 mg, Route: Inactive IVP, Drug 2017 [place] form: INJ, Hospital ONCE, Dosing Weight 52.273, kg, Priority: STAT, Start date: 01/24/17 22:07:00 CDT, Stop date: 01/24/17 22:07:00 CDT Morphine Notes: (Same Inactive as:MORPhine 2017 [place] Sulfate) Hospital Acetaminophen 300 1 - 2 tab, PO, No Longer 12/27 MG / Codeine Q4H, PRN Pain, Active 2016 [facility] Phosphate 30 MG X 2 day, # 30 Ho spital Oral Tablet tab, 0 [Tylenol with Refill(s) Codeine #3] Acetaminophen 325 Notes: (Same Inactive MG / Hydrocodone as: [place] 2017 [place] Bitartrate 5 MG 325/5) Do not H ospital Oral Tablet exceed 4gm/day [[place] 5/325] of acetaminophen. Sodium Chloride 500 mL, Rate: IV No Longer [facility] Sugar 0.9% (Bolus) IV 500 ml/hr, Active 2011 [facility] 500 mL Infuse over: 1 hr, Route: [...] ketorolac 30 mg, Route: IVP No Longer [facility] Sug ar IVP, Drug Active 2011 [place] form: INJ, ONCE, Dosing Weight 50, kg, Priority: STAT, Start date: 11/28/11 21:51:00, Stop date: 11/28/11 21:51:00 ondansetron 4 mg, Route: IVP No Longer [facility] IVP, ONCE, Active 2011 [facility] Dosing Weight 50, kg, Priority: STAT, Start date: 11/28/11 21:51:00, Stop date: 11/28/11 21:51:00 Sodium Chloride 1,000 mL, IVPB No Longer [facility] S ugar 0.9% (Bolus) IV Rate: 1,000 Active 2011 [facility] 1,000 mL ml/hr, Infuse over: 1 hr, Route: IVPB, kg, Total Volume: 1,000, Bolus Dose, Priority: STAT, Start date: 11/28/11 21:51:00, Duration: 1 doses or times, Stop date: 11/28/11 22:50:00 Saline Flush 0.9% 5 ml, Route: IVP No Longer [facility] Sugar IVP, Drug Active 2011 [place] Form: INJ, kg, PRN, PRN Line Flush, Start date: 11/28/11 21:51:00, Duration: 30 day, Stop date: 12/28/11 21:50:00 [place] 5/325 oral 1-2 tab, PO, PO Active [facility] Sugar tablet Q4-6H, PRN, 2011 tab, Pain, Substitution Allowed, Soft Stop Zofran ODT 4 mg 4 mg, 1 tab, PO Active [facility] Sugar oral tablet, PO, TID, PRN, 2011 disintegrating 10 tab, Nausea and Vomiting, Substitution Allowed morphine Sulfate 4 mg, 2 mL, IVP No Longer [facility] Route: IVP, Active 2011 [facility] Drug form: INJ, ONCE, Priority: STAT, Start [...] Longer [place] IVP, Drug Active 2011 [facility] Form: INJ, PRN, PRN Line Flush, Start [...] regular 5 unit, 0.05 IVP No Longer [facility] Sugar mL, Route: Active 2011 [facility] IVP, Drug form: SOLN, ONCE, Priority: STAT, Start date: 05/23/11 1:10:00, Stop date: 05/23/11 1:10:00 Visipaque 32,000 mg, 100 IV Active [facility] S[place] r mL, Route: IV, 2011 [facility] Drug form: INJ, ONCE, Start date: 05/22/11 23:47:00, Stop date: 05/22/11 23:47:00 Insulin regular 5 unit, 0.05 SUB-Q No Longer [facility] [place] mL, Route: Active 2011 [facility] SUB-Q, Drug form: SOLN, ONCE, Priority: STAT, Start date: 05/22/11 23:36:00, Stop date: 05/22/11 23:36:00 morphine Sulfate 2 mg, 0.4 mL, IVP No Longer [facility] [place] Route: IVP, Active 2011 [facility] Drug form: INJ, ONCE, Priority: STAT, Start date: 05/22/11 23:04:00, Stop date: 05/22/11 23:04:00 ondansetron 4 mg, 2 mL, IVP No Longer [facility] Sug ar Route: IVP, Active 2011 [facility] Drug form: INJ, ONCE, Priority: STAT, Start date: 05/22/11 23:04:00, Stop date: 05/22/11 23:04:00 Sodium Chloride 500 mL, Rate: IV No Longer [facility] Sugar 0.9% (Bolus) IV 1,000 ml/hr, Active 2011 [place] 500 mL Infuse over: 0.5 hr, Route: IV, Total Volume: 500, Bolus dose, Priority: STAT, Start date: 05/22/11 23:04:00, Duration: 1 doses or times, Stop date: 05/22/11 23:33:00 Saline Flush 0.9% 5 ml, Route: IVP No Longer [facility] Sugar IVP, Drug Active 2011 [facility] Form: INJ, PRN, PRN Line Flush, Start date: 05/22/11 23:04:00, Duration: 24 hr, Stop date: 05/23/11 23:03:00 Pyridium 200 mg 200 mg, 1 tab, PO Active [facility] Sugar oral tablet PO, TID, 9 2011 [facility] tab, Substitution Allowed Cipro 500 mg oral 500 mg, 1 tab, PO Active [facility] Sugar tablet PO, Q12H, 28 2011 [facility] tab, Substitution Allowed, TAB Pyridium 200 mg, 2 tab, PO No Longer [facility] Sug ar Route: PO, Active 2011 [facility] Drug form: TAB, ONCE, Priority: STAT, Start date: 05/07/11 20:03:00, Stop date: 05/07/11 20:03:00 Cipro 500 mg, 2 tab, PO No Longer [facility] [place] [facility] Route: PO, Active 2011 [facility] Drug form: TAB, ONCE, Priority: STAT, Start date: 05/07/11 20:03:00, Stop date: 05/07/11 20:03:00 Cipro 500 mg oral 500 mg, 1 tab, PO Active [facility] Sugar tablet PO, BID, 20 2011 [facility] tab, Substitution Allowed Zofran ODT 4 mg 4 mg, 1 tab, PO Active [facility] [place] oral tablet, PO, TID, PRN, 2011 disintegrating 10 tab, Nausea and Vomiting, Substitution Allowed [place] 10/325 oral 1 tab, PO, PO Active [facility] Sugar tablet Q4-6H, PRN, 24 2011 [facility] tab, as needed for pain, Substitution Allowed, Maintenance hydromorphone 1 mg, 0.5 mL, IVP No Longer [place] [facility] Route: IVP, Active 2011 [facility] Drug form: INJ, ONCE, Priority: STAT, Start date: 04/19/11 23:38:00, Stop date: 04/19/11 23:38:00 Insulin regular 10 unit, 0.1 IVP No Longer [facility] mL, Route: Active 2011 [facility] IVP, Drug form: SOLN, ONCE, Priority: STAT, [...] magnesium citrate 150 ml, PO, PO Active [place] 03/[facility] Sugar 8.85% oral liquid ONCE, 300 ml, 2010 [place] Substitution Allowed, Maintenance, LIQ MiraLax oral 17 gm, PO, PO Active [place] 03/26[facility] Sugar powder for Daily, 255 gm, 2010 [place] reconstitution Substitution Allowed, PDR/REC Phenergan 25 mg 25 mg, 1 tab, PO Active [place] 03/26[facility] Sugar oral tablet PO, Q6H, PRN, 2010 [place] 15 tab, Nausea, Substitution Allowed Vicodin 5/500 1 tab, PO, PO Active [place] 03/26[facility] Suga r oral tablet Q4-6H, PRN, 2010 tab, for Pain, Substitution Allowed, Maintenance Sodium Chloride 1,000 mL, IV No Longer [place] S ugar 0.9% (Bolus) IV Rate: 1,000 Active 2010 1,000 mL ml/hr, Infuse over: 1 hr, Route: IV, Total Volume: 1,000, Bolus Dose, Priority: STAT, Start date: 03/25/11 21:24:00, Duration: 1 doses or times, Stop date: 03/25/11 22:23:00 Insulin regular 10 unit, 0.1 IVP No Longer [place] 03/26/ H [place] mL, Route: Active 2010 IVP, Drug form: SOLN, ONCE, Priority: STAT, Start date: 03/25/11 21:16:00, Stop date: 03/25/11 21:16:00 Omnipaque 300 30,000 mg, 100 IV Active [place] Sugar mL, Route: IV, 2010 Drug form: SOLN, ONCE, Start date: 03/25/11 21:15:00, Stop date: 03/25/11 21:15:00 Saline Flush 0.9% 5 ml, Route: IVP No Longer [place] Sugar IVP, Drug Active 2010 Form: INJ, PRN, PRN Line Flush, Start date: 03/25/11 20:19:00, Duration: 30 day, Stop date: 04/24/11 20:18:00 ondansetron 4 mg, 2 mL, IVP No Longer [place] Sug ar Route: IVP, Active 2010 Drug form: INJ, ONCE, Priority: STAT, Start date: 03/25/11 20:19:00, Stop date: 03/25/11 20:19:00 morphine Sulfate 4 mg, 0.8 mL, IVP No Longer [place] Sugar Route: IVP, Active 2010 Drug form: [...] [place] Route: PO, Active 2010 [facility] Drug form: TAB, [id number], Start date: 02/11/11 11:00:00, Duration: 30 day, [...] Longer [place] IVP, Drug Active 2010 [facility] Form: INJ, Q12H, Start date: 02/11/11 9:00:00, [...] Route: PO, Active 2010 Drug form: TAB, [id number], Start date: 02/11/11 3:00:00, Duration: 30 day, [...] Sliding Scale - mL, Route: Active 2010 [facility] Low SUB-Q, Drug form: SOLN, Sliding Scale, PRN Blood Glucose Results, Start date: 02/11/11 2:05:00, Duration: 30 day, Stop date: 03/13/11 1:04:00 glucagon 1 mg, Route: IM No Longer [place] IM, Drug form: Active 2010 [facility] PDR/INJ, PRN, PRN Blood Glucose Results, Start date: 02/11/11 2:05:00, Duration: 30 day, Stop date: 03/13/11 1:04:00 Dextrose 50% 25 gm, 50 ml, IVP No Longer [place] [facility] Syringe Route: IVP, 2010 [facility] Drug Form: INJ, PRN, PRN Blood Glucose Results, Start date: 02/11/11 2:05:00, Duration: 30 day, Stop date: 03/13/11 1:04:00 Saline Flush 0.9% 5 ml, Route: IVP No Longer [place] IVP, Drug Active 2010 [facility] Form: INJ, PRN, PRN Line Flush, Start date: 02/11/11 2:05:00, Duration: 30 day, Stop date: 03/13/11 1:04:00 nitroglycerin SL 0.4 mg, 1 tab, SL No Longer [place] [facility] Tab Route: SL, Active 2010 [facility] Drug form: TAB, Q5Min, PRN Chest Pain, Start date: 02/11/11 2:05:00, Duration: 3 doses or times, Stop date: Limited # of times morphine Sulfate 2 mg, 0.4 mL, IVP No Longer [place] Route: IVP, Active 2010 [facility] Drug form: INJ, Q15Min, PRN Chest Pain, Start date: 02/11/11 2:05:00, Duration: 2 doses or times, Stop date: Limited # of times acetaminophen 650 mg, 2 tab, PO No Longer [facility] Route: PO, Active 2010 [facility] Drug form: TAB, Q4H, PRN Headache, Start date: 02/11/11 2:05:00, Duration: 30 day, Stop date: 03/13/11 2:04:00 diphenhydrAMINE 25 mg, 1 tab, PO No Longer [place] Route: PO, Active 2010 [facility] Drug form: TAB, Bedtime, PRN Insomnia, Start [...] [place] [facility] Route: PO, Active 2010 [facility] Drug form: TAB, Q8H, PRN Nausea & Vomiting, Start date: 02/11/11 2:05:00, Duration: 30 day, Stop date: 03/13/11 2:04:00 temazepam 15 mg, 1 cap, PO No Longer [place] Route: PO, 2010 [facility] Drug form: CAP, Bedtime, PRN Insomnia, Start date: 02/11/11 2:05:00, Duration: 30 day, Stop date: 03/13/11 2:04:00 aspirin 325 mg 325 mg, 1 tab, PO No Longer [place] tablet Route: PO, Active 2010 [facility] Drug form: TAB, ONCE, Start date: 02/11/11 2:05:00, Stop date: 02/11/11 2:05:00 morphine Sulfate 2 mg, 0.4 mL, IVP No Longer [place] 02/11 [place] Route: IVP, Active 2010 [facility] Drug form: INJ, ONCE, Priority: STAT, Start date: 02/11/11 0:37:00, Stop date: 02/11/11 0:37:00 Visipaque 48,000 mg, 150 IV No Longer [place] mL, Route: IV, Active 2010 [facility] Drug form: INJ, ONCE, Start date: 02/10/11 [...] H Sugar ointment Route: TOP, Active 2010 [facility] Drug Form: OINT, ONCE, STAT, Start date: 02/10/11 21:47:00, Stop date: 02/10/11 21:47:00 nitroglycerin 0.4 mg, 1 tab, SL No Longer [place] Route: SL, Active 2010 [facility] Drug form: TAB, Q5Min, PRN Chest Pain, (Hold if SBP < = 90 mmHg or if < = 100mmHg with symptomatic dizziness), Start date: 02/10/11 21:47:00, Duration: 3 doses or times, Stop date: Limited # of times morphine Sulfate 2 mg, Route: IVP No Longer [place] IVP, ONCE, Active 2010 [facility] Priority: STAT, Start date: 02/10/11 21:47:00, Stop date: 02/10/11 21:47:00 Saline Flush 0.9% 5 ml, Route: IVP No Longer [place] 02/11 [place] IVP, PRN, PRN Active 2010 [facility] Line Flush, Start date: 02/10/11 21:47:00, Duration: 30 day, Stop date: 03/12/11 20:46:00 aspirin 325 mg 325 mg, 1 tab, PO No Longer [place] [facility] tablet, enteric Route: PO, Active 2010 [facility] coated Drug form: ECTAB, Daily, Start date: 01/16/11 9:00:00, Duration: 30 day, Stop date: 02/14/11 9:00:00 Requip 1 mg, 1 tab, PO No Longer [place] Route: PO, Active 2010 [facility] Drug form: TAB, Bedtime, Start date: 01/15/11 21:00:00, Duration: 30 day, Stop date: 02/13/11 21:00:00 Nitrostat 0.4 mg 1 tab, SL, SL Active [place] [facility] [place] sublingual tablet Q5Min, PRN, [address] [place] [address] 100 tab, Chest Pain, Substitution Allowed metoprolol 25 mg 12.5 mg, PO, PO Active [facility] Sugar oral tablet Q12H, 30 tab, 2010 Substitution Allowed, TAB aspirin 325 mg 9,750 mg, 30 PO Active [facility] S ugar tablet, enteric tab, PO, 2010 coated Daily, 30 tab, Substitution Allowed, ECTAB metoprolol 12.5 mg, 0.5 PO No Longer [place] ar tab, Route: Active 2010 PO, Drug form: TAB, Q12H, Priority: NOW, Start date: 01/15/11 10:36:00, Duration: 30 day, Stop date: 02/14/11 9:00:00 Fioricet oral 1 tab, PO, PO Active [facility] S[place] r tablet Q4H, PRN, 2010 tab, Headache, Substitution Allowed, Maintenance, TAB Fioricet 1 tab, Route: PO No Longer [facility] [place] PO, Drug Form: Active 2010 TAB, Q4H, PRN Headache, Start date: 01/15/11 9:15:00, Duration: 30 day, Stop date: 02/14/11 9:14:00 aspirin 81 mg 81 mg, 1 tab, PO No Longer [facility] Sugar tablet, enteric Route: PO, [...] 01/15/ H [place] mL, Route: Active 2010 [facility] SUB-Q, Drug form: INJ, Bedtime, Start date: 01/14/11 21:00:00, Duration: 30 day, Stop date: 02/12/11 21:00:00 Lantus 70 unit, SUB-Q No Longer [place] Route: SUB-Q, Active 2010 [facility] Bedtime, Start date: 01/14/11 21:00:00, Duration: 30 day, Stop date: 02/12/11 21:00:00 glucagon 1 mg, Route: IM No Longer [place] IM, Drug form: Active 2010 [facility] PDR/INJ, PRN, PRN Blood Glucose Results, Start date: 01/14/11 19:22:00, Duration: 30 day, Stop date: 02/13/11 19:21:00 Insulin (Novolog) 6 unit, 0.06 SUB-Q No Longer [place] [facility] Sliding Scale - mL, Route: Active 2010 [facility] Very High SUB-Q, Drug form: SOLN, Sliding Scale, PRN Blood Glucose Results, Start date: 01/14/11 19:22:00, Duration: 30 day, Stop date: 02/13/11 19:21:00 Dextrose 50% 25 gm, 50 ml, IM No Longer [place] Syringe Route: IM, Active 2010 Drug Form: INJ, PRN, PRN Blood Glucose Results, Start date: 01/14/11 19:22:00, Duration: 30 day, Stop date: 02/13/11 19:21:00 Saline Flush 0.9% 5 ml, Route: IVP No Longer [place] IVP, Drug Active 2010 [facility] Form: INJ, PRN, PRN Line Flush, Start [...] S ugar PO, Drug Form: Active 2010 [facility] SUSP, ONCE, Routine, Start date: 01/14/11 17:08:00, [...] 0.9% 5 ml, Route: IVP No Longer [facility] Sugar IVP, Drug Active 2010 Form: INJ, PRN, PRN Line Flush, Start date: 01/14/11 15:20:00, Duration: 30 day, Stop date: 02/13/11 15:19:00 ibuprofen 400 mg 1 tab, PO, PO Active [facility] S ugar oral tablet Q4H, PRN, 2010 tab, Pain, Substitution Allowed acetaminophen-hyd 1 tab, PO, PO Active [facility] Sugar rocodone 500 mg-5 Q4-6H, PRN, [...] type Reported Ritalin Assertion Drug Active allergy [place] [facility] Immunizations No Data Provided for This Section Results Order Name Results Value Reference Date Interpretation Comments Nely rce Range BACTERIAL Strep Negative Negative 02/26 [place] - SEROLOGY pneumoniae (02/25/17 9:02 PM) /2016 Hospital Ag BACTERIAL Source Strep Cerebral 02/26 [facility] [facility] - SEROLOGY Spinal /2016 Hospital Fluid BODY Tube Num CSF 1 02/26 [place] FLUIDS /2016 Hospital BODY Clarity CSF Clear Clear 02/26 [facility] [place] FLUIDS (02/25/17 9:02 PM) /2016 Hospi roly BODY Color CSF Colorless Colorless 02/26 [facility] [place] FLUIDS (02/25/17 9:02 PM) /2016 Hospi roly BODY Supernat CSF Colorless Colorless 02/26 [facility] FLUIDS (02/25/17 9:02 PM) /2016 Hospi roly BODY WBC CSF 2 0 - 53 02/26 [facility] [place] FLUIDS /2016 Hospital BODY RBC CSF 1 0 - 03 02/26 [facility] [place] FLUIDS /2016 Hospital BODY RBC CSF 1 0 - 03 02/26 [place] FLUIDS /2016 Hospital BODY WBC CSF 2 0 - 53 02/26 [place] FLUIDS /2016 Hospital BODY Supernat CSF Colorless Colorless 02/26 [facility] FLUIDS (02/25/17 9:02 PM) /2016 Hospi roly BODY Clarity CSF Clear Clear 02/26 [place] FLUIDS (02/25/17 9:02 PM) /2016 Hospi roly BODY Tube Num CSF 4 02/26 [place] FLUIDS /2016 Hospital BODY Color CSF Colorless Colorless 02/26 [place] FLUIDS (02/25/17 9:02 PM) /2016 Hospi roly BODY Glucose CSF 219 45 - 80 02/26 Result [place] FLUIDS Comment: Hospital Critical Result(s) called to Charlotte Hodge at _02/25/2017 21:45 bybz_. Read back OK.

NOTE: RESULTS autoverfied BODY Protein CSF 55 15 - 45 02/26 [place] FLUIDS /2016 Hospital FUNGAL - Crypto Ag Negative Negative 02/26 [place] SEROLOGY CSF (02/25/17 9:02 PM) /2016 [facility]osp [facility] IMMUNOLOGY VDRL Scr CSF Non Reactive Non 02/26 [place] (02/25/17 9:02 PM) Reactive /2016 Hosp ital [...] curve analysis. MOLECULAR Source HSV Cerebral 02/26 [place] DIAGNOSTIC Spinal /2016 Hospital Fluid VIRAL - [facility] (02/25/17 9:02 PM) [facility]osp [facility] CHEM PANEL A/G Ratio 0.9 0.7 - 1.6 02/26 [facility] CHEM PANEL B/C Ratio 23 6 - 25 02/26 [facility] CHEM PANEL Globulin 4.3 2.7 - 4.2 02/26 [facility] CHEM PANEL AGAP 11.3 10.0 - 02/26 [place] 20.0 [facility] CHEM PANEL eGFR 101 02/26 [facility] eGFR is calculated using [...] PANEL BUN 16 7 - 22 02/26 [facility] CHEM PANEL ALANINE 17 0 - 65 02/26 [facility] CHEM PANEL Total 8.2 6.4 - 8.4 02/26 [facility] CHEM PANEL Potassium 4.3 3.5 - 5.1 02/26 [facility]2016 [facility] CHEM PANEL Sodium Lvl 130 135 - 145 02/26 [facility] CHEM PANEL Creatinine 0.70 0.50 - 02/26 [place] Lvl 1.40 /2016 [facility] CHEM PANEL Glucose Lvl 340 70 - 99 02/26 [facility] /2016 [facility] CHEM PANEL Calcium Lvl 8.9 8.5 - 10.5 02/26 [facility] /2017 [facility] CHEM PANEL Chloride Lvl 97 95 - 109 02/26 [facility]2016 [facility] CHEM PANEL CO2 26 24 - 32 02/26 [place] /2017 [facility] CHEM PANEL Alk Phos 158 39 - 136 02/26 [place] /2017 [facility] CHEM PANEL ASPARTATE 16 0 - 37 02/26 [place] [facility]ANSAMINASE [facility] CHEM PANEL Albumin Lvl 3.9 3.5 - 5.0 02/26 [facility] /2016 [facility] CHEM PANEL Lactic Acid 1.8 0.5 - 2.2 02/26 [facility] /2016 [facility] HEMATOLOGY Platelet 305 133 - 450 02/26 [place] /2017 Hospital HEMATOLOGY MCV 82.2 80.0 - 02/26 [place] 98.0 /2016 [facility] HEMATOLOGY Hct 37.1 36.0 - 02/26 [place] 48.0 /2016 [facility] HEMATOLOGY MPV 7.4 7.4 - 10.4 02/26 [place] /2017 Hospital HEMATOLOGY RDW 14.1 11.5 - 02/26 [place] 14.5 /2016 [facility] HEMATOLOGY MCH 27.6 27.0 - 02/26 [place] 31.0 /2016 Hospital HEMATOLOGY MCHC 33.6 32.0 - 02/26 [place] 36.0 /2017 Hospital HEMATOLOGY RBC X 10x6 4.52 4.20 - 02/26 [place] 5.40 /2016 Hospital HEMATOLOGY Hgb 12.5 12.0 - 02/26 [place] 16.0 /2016 Hospital HEMATOLOGY WBC X 10x3 [...] Hospital HEMATOLOGY Segs 53.4 45.0 - 02/26 [place] 75.0 /2016 Hospital HEMATOLOGY Lymphocytes 39.1 20.0 [...] AND UA 0.2 0.1 - 1.0 02/26 [place] [facility] Urobilinogen /2016 Hospital URINE AND UA Nitrite Negative Negative 02/26 [facility] (02/25/17 7:42 PM) Hospi roly URINE AND UA Bili Negative Negative 02/26 [place] [facility] *NA* /2016 Hospital (02/25/17 7:42 PM) URINE AND UA Ketones Negative Negative 02/26 [facility] *NA* /2016 [facility] (02/25/17 7:42 PM) URINE AND UA Bacteria Many /HPF None Seen 02/26 [facility] /HPF /2016 Hospital URINE AND UA WBC 0-2 /HPF None Seen 02/26 [place] [facility] /HPF /2016 Hospital URINE AND UA RBC 0-2 /HPF 0 - 2 02/26 [place] [facility] /2016 Hospital URINE AND UA Leuk Est Negative Negative 02/26 [facility] (02/25/17 7:42 PM) /2016 Hospi roly URINE AND UA Sq Epi Few /LPF Few /LPF 02/26 [place] [facility] Hospital URINE AND UA Blood Negative Negative 02/26 [place] [facility] (02/25/17 7:42 PM) Hospi roly URINE AND UA Glucose >=1000 Negative 02/26 [place] STO[facility] mg/dL mg/dL /2016 Hospital URINE AND UA Protein Negative Negative 02/26 [facility] (02/25/17 7:42 PM) [facility]pi [facility]ly URINE AND UA pH 6.0 5.0 - 8.0 02/26 [place] STO[facility] /2016 Hospital URINE AND UA Spec Grav 1.010 <=1.030 02/26 [facility] URINE AND UA Color Yellow Yellow 02/26 [place] STOOL *NA* /2016 Hospital (02/25/17 7:42 PM) URINE AND UA Turbidity Slight Cloudy Clear 02/26 [place] STOOL (02/25/17 7:42 PM) Hospi roly VIRAL - Influ B Negative Negative 02/26 [place] [facility]Y (02/25/17 7:42 PM) Hosp ital VIRAL - Influ A Negative Negative 02/26 [place] [facility] (02/25/17 7:42 PM) Hosp ital CHEM [...] Alk Phos 165 39 - 136 01/26 [facility] CHEM PANEL B/C Ratio 12 6 - 25 01/26 [facility] CHEM PANEL Globulin 3.3 2.7 - 4.2 01/26 [facility] CHEM PANEL Albumin Lvl 2.4 3.5 - 5.0 01/26 [facility] CHEM PANEL Total 5.7 6.4 - 8.4 01/26 [facility] CHEM PANEL AGAP 9.7 10.0 - 01/26 [place] 20.0 [facility] CHEM PANEL Glucose Lvl 261 70 - 99 01/26 [facility] CHEM PANEL Calcium Lvl 7.4 8.5 - 10.5 01/26 [facility] CHEM PANEL A/G Ratio 0.7 0.7 - 1.6 01/26 [facility] CHEM PANEL Creatinine 0.40 0.50 - 01/26 [facility] [place] [facility] 1[facility]40 [facility] CHEM PANEL BUN 5 7 - 22 01/26 [place] 2017 [facility] CHEM PANEL ASPARTATE 37 0 - 37 01/26 [place] TRANSAMINASE [facility] CHEM PANEL ALANINE 44 0 - 65 01/26 [place] [facility] RASE CHEM PANEL Potassium 3.7 3.5 - 5.1 01/26 [facility] CHEM PANEL Sodium Lvl 137 135 - 145 01/26 [facility] CHEM PANEL CO2 25 24 - 32 10 [facility] CHEM PANEL Chloride Lvl 106 95 - 109 01/26 [facility] CARDIAC Troponin-I <0.02 0.00 - 01/25 [place] ENZYMES 0.40 [facility] PARATHYROI Ca Norm WB 0.99 1.05 - 01/25 [place] D PROFILE 1. [facility] PARATHYROI Ca Ion WB 1.01 1.05 - 01/25 [place] D PROFILE 1. Hospital CHEM PANEL Albumin Lvl 2.6 3.5 - 5.0 01/25 [facility] CHEM PANEL eGFR 112 01/25 Result [place] Comment: The Hospital eGFR is calculated using [...] CHEM PANEL Creatinine 0.50 0.50 - 01/25 [place] [facility] 1.40 [facility] CHEM PANEL Sodium Lvl 135 135 - 145 01/25 [facility] CHEM PANEL Potassium 3.6 3.5 - 5.1 01/25 [facility] CHEM PANEL CO2 25 24 - 32 01/25 [facility] CHEM PANEL Chloride Lvl 105 95 - 109 01/25 [facility] CHEM PANEL AGAP 8.6 10.0 - 01/25 [place] 20.0 [facility] CHEM PANEL Calcium Lvl 6.9 8.5 - 10.5 01/25 [facility] Comment: Hospital Critical Result(s) called to uyen martinez_ at _01/25/2017 15:47 by_bz. Read back OK. CHEM PANEL Glucose Lvl 263 70 - 99 01/25 [facility] CHEM PANEL BUN 8 7 - 22 01/25 [facility] CHEM PANEL Phosphorus 2.7 2.5 - 4.5 01/25 [facility] CHEM PANEL eGFR 106 01/25 Result [place] Comment: The Hospital eGFR is calculated using [...] CHEM PANEL Creatinine 0.60 0.50 - 01/25 [place] [facility] 1.40 [facility] CHEM PANEL BUN 9 7 - 22 01/25 [facility] CHEM PANEL Glucose Lvl 405 70 - 99 01/25 [facility] Comment: [facility] Critical Result(s) called to Dung Mullins at 01/25/2017 04:39 by CV. Read back OK. CHEM PANEL AGAP 12.5 10.0 - 01/25 [place] 20.0 [facility] CHEM PANEL Potassium 3.5 3.5 - 5.1 01/25 [facility] CHEM PANEL Chloride Lvl 102 95 - 109 01/25 [facility] CHEM PANEL CO2 23 24 - 32 01/25 [facility] CHEM PANEL Calcium Lvl 7.1 8.5 - 10.5 01/25 [facility] CHEM PANEL Sodium Lvl 134 135 - 145 01/25 [facility] CHEM PANEL Magnesium 1.7 1.8 - 2.4 01/25 [facility] HEMATOLOGY MPV 7.4 7.4 - 10.4 01/25 [place] 2017 [facility] HEMATOLOGY RDW 13.6 11.5 - 01/25 [place] 14.5 [facility] HEMATOLOGY Platelet 244 133 - 450 01/25 [place] 2017 [facility] HEMATOLOGY MCHC 33.4 32.0 - 01/25 [place] 36.0 [facility] HEMATOLOGY MCV 82.5 80.0 - 01/25 [place] 98.0 [facility] HEMATOLOGY MCH 27.6 27.0 - 01/25 [place] 31.0 [facility] HEMATOLOGY Hgb 10.7 12.0 - 01/25 [place] 16.0 [facility] HEMATOLOGY Hct 32.0 36.0 - 01/25 [place] 48.0 [facility] HEMATOLOGY WBC X 10x3 5.5 3.7 - 10.4 01/25 [facility] HEMATOLOGY RBC X 10x6 3.88 4.20 - 01/25 [place] 5.40 [facility] HEMATOLOGY Monocytes 7.2 2.0 - [...] Hospital HEMATOLOGY Segs 55.0 45.0 - 01/25 [place] 75.0 [facility] SPECIAL Hgb A1C >16.0 % <=5.6 % 01/25 [place] CHEMISTRY Hospital URINE AND UA Sq Epi Occasional Few /LPF 01/25 [facility] /LPF /2016 Hospital URINE AND UA WBC 11-20 /HPF None Seen 01/25 [facility] /HPF /2016 [facility] URINE AND UA Bacteria Moderate None Seen 01/25 [facility] /HPF /HPF /2016 Hospital URINE AND UA RBC 0-2 /HPF 0 - 2 01/25 [place] STOOL /2016 Hospital URINE AND UA Leuk Est Negative Negative 01/25 [facility] (01/24/17 11:54 PM) /2016 Hosp ital URINE AND UA Nitrite Positive Negative 01/25 [facility] *ABN* /2016 Hospital (01/24/17 11:54 PM) URINE AND UA Blood Negative Negative 01/25 [place] [facility] (01/24/17 11:54 PM) Hosp ital URINE AND UA Bili Negative Negative 01/25 [place] [facility] *NA* /2016 Hospital (01/24/17 11:54 PM) URINE AND UA Glucose >=1000 Negative 01/25 [place] STOOL mg/dL mg/dL /2016 Hospital URINE AND UA Protein Negative Negative 01/25 [facility] (01/24/17 11:54 PM) Hosp ital URINE AND UA 0.2 0.1 - 1.0 01/25 [place] STOOL Urobilinogen /2016 Hospital URINE AND UA Ketones Negative Negative 01/25 [facility] *NA* /2016 Hospital (01/24/17 11:54 PM) URINE AND UA pH 5.5 5.0 - 8.0 01/25 [place] STOOL /2016 Hospital URINE AND UA Spec Grav <=1.005 <=1.030 01/25 [facility] *NA* /2016 Hospital (01/24/17 11:54 PM) URINE AND UA Color Yellow Yellow 01/25 [place] STOOL *NA* /2016 Hospital (01/24/17 11:54 PM) URINE AND UA Turbidity Clear Clear 01/25 [facility] (01/24/17 11:54 PM) /2016 Hosp ital CARDIAC Total CK 62 12 - 191 01/25 [place] [facility]ZYMES [facility] CARDIAC CK MB <1.0 0.5 - 3.6 01/25 [place] [facility] CARDIAC Troponin-I <0.02 0.00 - 01/25 [place] [facility] 0.40 Hospital CARDIAC CK-MB INDEX <1.6 0.0 - 2.5 01/25 [place] [facility] CHEM PANEL ASPARTATE 14 0 - 37 01/25 [place] TRANSAMINASE Hospital CHEM PANEL Bili Total 0.5 0.2 - 1.3 01/25 [facility] CHEM PANEL ALANINE 37 0 - 65 01/25 [place] [facility] RASE CHEM PANEL Alk Phos 222 39 - 136 01/25 [facility] CHEM PANEL A/G Ratio 0.7 0.7 - 1.6 01/25 [facility] CHEM PANEL Globulin 4.7 2.7 - 4.2 01/25 [facility] CHEM PANEL Albumin Lvl 3.5 3.5 - 5.0 01/25 [facility] CHEM PANEL B/C Ratio 16 6 - 25 01/25 [place] 2017 [facility] CHEM PANEL Total 8.2 6.4 - 8.4 01/25 [facility] CHEM PANEL Lipase Lvl 168 73 - 393 01/25 [facility] 2017 [facility] HEMATOLOGY Hgb 13.7 12.0 - 01/25 [place] 16.0 2017 Hospital HEMATOLOGY Hct 41.6 36.0 - 01/25 [place] 48.0 Hospital HEMATOLOGY MCV 83.6 80.0 - 01/25 [place] 98.0 /2016 Hospital HEMATOLOGY MCH 27.5 27.0 - 01/25 [place] 31.0 /2017 Hospital HEMATOLOGY MCHC 32.9 32.0 - 01/25 [place] 36.0 /2016 Hospital HEMATOLOGY RDW 13.6 11.5 - 01/25 [place] 14.5 Hospital HEMATOLOGY Platelet 314 133 - 450 01/25 [place] /2017 Hospital HEMATOLOGY MPV 8.1 7.4 - 10.4 01/25 [place] /2017 Hospital HEMATOLOGY WBC X 10x3 5.8 3.7 - 10.4 01/25 [facility] /2017 Hospital HEMATOLOGY RBC X 10x6 4.97 4.20 - 01/25 [place] 5.40 /2016 Hospital HEMATOLOGY Monocytes # 0.4 [...] Hospital HEMATOLOGY Segs 59.9 45.0 - 01/25 [place] 75.0 /2016 Hospital HEMATOLOGY Lymphocytes 31.7 20.0 - 01/25 [facility] 40.0 [facility] BEDSIDE Comment1 Notify 02/05 NA GLUCOSE KIRIT/ /2011 [facility] TESTING BEDSIDE Gluc POC 293 70 - 99 02/05 HI <sup>1</sup>I GLUCOSE [facility] nterpretive [facility] TESTING Data: Upper Reportable Limit: 200 mg/dL. BEDSIDE Comment1 Notify 11/28 NA [place] [facility]UCOSE KIRIT/ /2011 [facility] TESTING BEDSIDE Gluc POC 233 70 - 99 11/28 [place] <sup>1</sup>I [place] GLUCOSE [facility] /2011 nterpretive [facility] TESTING Data: Upper Reportable Limit: 200 mg/dL. [...] values reflect the clinical guidelines
of the [place] [employer]. CHEMISTRY Chloride Lvl 98 95 [...] values reflect the clinical guidelines
of the [place] [employer]. CHEMISTRY Chloride Lvl 100 95 [...] - 99 10/24 CRIT <sup>3</sup>I [place] GLUCOSE [facility]terpretive [place] TESTING Data: Upper Reportable Limit: 200 mg/dL. BEDSIDE Gluc POC 273 65 - 110 05/23 HI <sup>1</sup>I [place] GLUCOSE [facility] [place] TESTING Data: Upper Reportable Limit: 200 mg/dL. BEDSIDE Comment1 Notify 05/23 NA [facility]UCOSE [place]/ [place] TESTING BEDSIDE Gluc POC >400 65 - 110 05/23 CRIT <sup>2</sup>I [facility] [place] [facility] Data: Upper Reportable [...] on the clinical recommendatio ns of the [place] [employer]. CHEMISTRY BUN 12 7 - [...] on the clinical recommendatio ns of the [place] [employer]. CHEMISTRY Creatinine 0.8 0.5 - [...] on the clinical recommendatio ns of the [place] [employer]. CHEMISTRY Lipase Lvl 171 73 [...] [place] (03/25/2011 20:00:00) [place] URINALYSIS [facility] [place] Yeast Occasional /HPF None Seen 03/26 ABN [...] on the clinical recommendatio ns of the [place] [employer]. CHEMISTRY BUN 11.0 7 - [...] gar (02/10/2011 22:26:00) ?? [place] URINALYSIS UA [place] Yeast Occasional /HPF >None Seen 02/11 ABN [...] on the clinical recommendatio ns of the [place] [employer]. CHEMISTRY Sodium Lvl 131.0 135 [...] - 110 01/15 HI <sup>1</sup>I [place] GLUCOSE [facility] nterpret[facility] [place] TESTING Data: Upper Reportable Limit: 200 mg/dL. BEDSIDE Comment1 Notify 01/15 NA [place] [facility]UCOSE RN/MD [place] TESTING BEDSIDE Comment1 Notify 01/15 NA [place] [facility]UCOSE RN/MD /2010 [place] TESTING BEDSIDE Gluc POC 88.0 65 - 110 01/15 Normal <sup>2</sup>I [place] GLUCOSE [facility] nterpretive [place] TESTING Data: Upper Reportable Limit: 200 mg/dL. BEDSIDE Comment1 Notify 01/15 NA [place] [facility]SE RN/MD [place] TESTING BEDSIDE Gluc POC 70.0 65 - 110 01/15 Normal <sup>3</sup>I [place] GLUCOSE [facility] nterpretive [place] TESTING Data: Upper Reportable [...] on the clinical recommendatio ns of the [place] [employer]. CHEMISTRY LDL 96.0 0 - [...] on the clinical recommendatio ns of the [place] [employer]. CHEMISTRY BUN 9.0 7 - [...] 27.0 - 01/14 Normal [place] 31.0 /2010 [facility] HEMATOLOGY Hgb 13.2 12.0 - 10 Normal [place] 16.0 /2010 [facility] HEMATOLOGY RBC 4.6 4.20 - 01/14 Normal [place] 5.40 /2010 [facility] HEMATOLOGY Hct 38.9 36.0 - 01/14 Normal [place] 48.0 /2010 [facility] HEMATOLOGY MCV 84.6 81.0 - 01/14 Normal [place] 99.0 /2010 [facility] HEMATOLOGY WBC 5.6 3.7 - 10.4 10 Normal [place] /2010 [facility] HEMATOLOGY PT 13.6 12.0 - 01/14 Normal [place] 14.7 /2010 [facility] HEMATOLOGY PTT 30.2 22.9 - 10 Normal <sup>10</sup> Seana r 35.8 [place]ive [place] Data: Heparin Therapeutic Range: 57 - 92 Seconds HEMATOLOGY INR 1.04 0.85 - 01/14 Normal <sup>8</sup>I [facility] r 1.17 nterpretive [facility] Data: RECOMMENDED RANGES FOR PROTIME INR: 2.0-3.0 for most medical and surgical thromboemboli c states. 2.5-3.5 for artificial heart valves and recurrent embolism. INR SHOULD BE USED ONLY FOR PATIENTS ON STABLE ANTICOAGULANT THERAPY. HEMATOLOGY D-Dimer 1.5 01/14 NA <sup>9</sup>I [facility] r /2010 nterpretive [facility] Data: In DIC, quantitative D-Dimer is generally [...] and I concur with the interpretation. 02/25/2017 [facility] Clinical Indication: Headache, fever, [...] No mass, hemorrhage, or subacute stroke. SL: [id number] Spine cervical wo CT cervical spine without contrast 02/25/2017 [facility] contrast CT Clinical Indication: [...] ABDOMEN AND PELVIS WITH CONTRA ST 01/24/2017 [facility] contrast CT Clinical Indication: [...] series DX RIGHT FOOT 3 VIEW 12/26/2016 [facility] HISTORY: Toe injury. No comparisons. FINDINGS: There [...] Comments Source Systolic (mm Hg) 111 02/26/2017 [facility] Diastolic (mm Hg) 64 02/26/2017 [facility] Respitory Rate 16 02/26/2017 [facility] Temperature Oral (F) 97.6 F 02/26/2017 [facility] Heart Rate 85 02/26/2017 [facility] Respitory Rate 16 02/26/2017 [facility] Systolic (mm Hg) 114 02/26/2017 [facility] Diastolic (mm Hg) 66 02/26/2017 [facility] Heart Rate 82 02/26/2017 [facility] Temperature Oral (F) 98.8 F 02/26/2017 [facility] Weight 49.545 02/26/2017 [facility] BMI Calculated 18.75 02/26/2017 [facility] Height 162.56 cm 02/26/2017 [facility] Systolic (mm Hg) 109 02/26/2017 [facility] Diastolic (mm Hg) 65 02/26/2017 [facility] Heart Rate 84 02/26/2017 [facility] Respitory Rate 14 02/26/2017 [facility] Respitory Rate 18 02/25/2017 [facility] Systolic (mm Hg) 114 02/25/2017 [facility] Diastolic (mm Hg) 63 02/25/2017 [facility] Temperature Oral (F) 98.2 F 02/25/2017 [facility] Heart Rate 78 02/25/2017 [facility] BMI Calculated 18.75 02/25/2017 [facility] Weight 49.545 02/25/2017 [facility] Height 162.56 cm 02/25/2017 [facility] Heart Rate 77 02/25/2017 [facility] Respitory Rate 18 02/25/2017 [facility] Temperature Oral (F) 97.8 F 02/25/2017 [facility] Systolic (mm Hg) 147 02/25/2017 [facility] Diastolic (mm Hg) 80 02/25/2017 [facility] Weight 49.659 02/25/2017 [facility] Height 167.64 cm 02/25/2017 [facility] Temperature Oral (F) 97.8 F 02/25/2017 [facility] BMI Calculated 17.67 02/25/2017 [facility] Systolic (mm Hg) 145 02/25/2017 [facility] Diastolic (mm Hg) 80 02/25/2017 [facility] Respitory Rate 18 02/25/2017 [facility] Heart Rate 77 02/25/2017 [facility] Temperature Oral (F) 98.5 F 01/26/2017 [facility] Heart Rate 87 01/26/2017 [facility] Respitory Rate 20 01/26/2017 [facility] Systolic (mm Hg) 116 01/26/2017 [facility] Diastolic (mm Hg) 69 01/26/2017 [facility] Heart Rate 79 01/26/2017 [facility] Respitory Rate 18 01/26/2017 [facility] Temperature Oral (F) 98.4 F 01/26/2017 [facility] Systolic (mm Hg) 129 01/26/2017 [facility] Diastolic (mm Hg) 80 01/26/2017 [facility] Temperature Oral (F) 98.1 F 01/26/2017 [facility] Heart Rate 78 01/26/2017 [facility] Hospital Systolic (mm Hg) 120 01/26/2017 [facility] Hospital Diastolic (mm Hg) 69 01/26/2017 [facility] Hospital Respitory Rate 20 01/26/2017 [facility] Height 157.48 cm 01/25/2017 [facility] Hospital Weight 51.449 01/25/2017 [facility] BMI Calculated 20.75 01/25/2017 [facility] Hospital Weight 52.273 01/25/2017 [facility] BMI Calculated 19.78 01/25/2017 [facility] Height 162.56 cm 01/25/2017 [facility] Systolic (mm Hg) 121 12/27/2016 [facility] Hospital Diastolic (mm Hg) 81 12/27/2016 [facility] Respitory Rate 16 12/27/2016 [facility] Heart Rate 82 12/27/2016 [facility] Temperature Oral (F) 98.3 F 12/27/2016 [facility] Temperature Oral (F) 98.4 F 12/27/2016 [facility] Respitory Rate 18 12/27/2016 [facility] Systolic (mm Hg) 126 12/27/2016 [facility] Diastolic (mm Hg) 81 12/27/2016 [facility] BMI Calculated 18.92 12/27/2016 [facility] Hospital Weight 50 12/27/2016 [facility] Heart Rate 89 12/27/2016 [facility] Height 162.56 cm 12/27/2016 [facility] Height 162.56 cm 02/06/2012 [place] Weight 47.273 02/06/2012 [facility] Height 162.56 cm 11/29/2011 [place] Weight 50.000 11/29/2011 [place] Height 162.56 cm 10/25/2011 [place] Weight 54.545 10/25/2011 [place] Height 162.56 cm 05/23/2011 [place] Weight 50.000 05/23/2011 [place] Temperature Oral (F) 98.5 F 05/08/2011 [place] Diastolic (mm Hg) 57 05/08/2011 [place] [facility] Systolic (mm Hg) 107 05/08/2011 [place] Heart Rate 57 05/08/2011 [place] Respitory Rate 16 05/08/2011 [facility] [place] Weight 50.000 05/08/2011 [facility] [place] Height 162.56 cm 05/08/2011 [place] Temperature Oral (F) 98.6 F 05/08/2011 [facility] [place] Diastolic (mm Hg) 70 05/08/2011 [facility] [place] and Systolic (mm Hg) 127 05/08/2011 [facility] [place] Heart Rate 83 05/08/2011 [facility] [place] Respitory Rate 16 05/08/2011 [facility] [place] Respitory Rate 18 04/20/2011 [facility] [place] Heart Rate 79 04/20/2011 [facility] [place] Diastolic (mm Hg) 75 04/20/2011 [facility] [place] Systolic (mm Hg) 119 04/20/2011 [facility] [place] Diastolic (mm Hg) 97 04/20/2011 [facility] [place] [facility] Heart Rate 80 04/20/2011 [facility] [place] Systolic (mm Hg) 148 04/20/2011 [facility] [place] Respitory Rate 20 04/20/2011 [facility] [place] Weight 50.000 04/20/2011 [facility] [place] Systolic (mm Hg) 122 04/20/2011 [place] Temperature Oral (F) 98.0 F 04/20/2011 [place] Respitory Rate 18 04/20/2011 [place] Heart Rate 79 04/20/2011 [facility] [place] Diastolic (mm Hg) 75 04/20/2011 [place] [facility] Temperature Oral (F) 98.0 F 03/26/2011 [facility] [place] Respitory Rate 18 03/26/2011 [place] Heart Rate 69 03/26/2011 [facility] [place] Systolic (mm Hg) 112 03/26/2011 [facility] [place] Diastolic (mm Hg) 60 03/26/2011 [facility] [place] [facility] Height 160.02 cm 03/26/2011 [facility] [place] Weight 53.636 03/26/2011 [facility] [place] Temperature Oral (F) 99.0 F 03/26/2011 [place] Diastolic (mm Hg) 67 03/26/2011 [facility] [place] [facility] Systolic (mm Hg) 115 03/26/2011 [facility] [place] Respitory Rate 16 03/26/2011 [facility] [place] Heart Rate 75 03/26/2011 [facility] [place] Diastolic (mm Hg) 51.0 02/11/2011 [facility] [place] [facility] Respitory Rate 14.0 02/11/2011 [facility] [place] Systolic (mm Hg) 100.0 02/11/2011 [facility] [place] Heart Rate 59.0 02/11/2011 [place] Temperature Oral (F) 98.1 F 02/11/2011 [facility] [place] Diastolic (mm Hg) 54.0 02/11/2011 [place] [facility] Systolic (mm Hg) 102.0 02/11/2011 [place] Temperature Oral (F) 97.5 F 02/11/2011 [place] Heart Rate 61.0 02/11/2011 [facility] [place] Respitory Rate 16.0 02/11/2011 [place] Height 162.56 cm 02/11/2011 [facility] [place] Weight 56.96 02/11/2011 [facility] [place] Respitory Rate 18.0 02/11/2011 [place] Temperature Oral (F) 98.0 F 02/11/2011 [place] Heart Rate 61.0 02/11/2011 [place] Systolic (mm Hg) 111.0 02/11/2011 [place] Diastolic (mm Hg) 61.0 02/11/2011 [place] [facility] Weight 52.273 02/11/2011 [place] Height 162.56 cm 02/11/2011 [place] Diastolic (mm Hg) 59.0 01/15/2011 [place] [facility] Systolic (mm Hg) 105.0 01/15/2011 [place] Temperature Oral (F) 97.0 F 01/15/2011 [place] Heart Rate 59.0 01/15/2011 [place] Respitory Rate 18.0 01/15/2011 [place] Temperature Oral (F) 97.2 F 01/15/2011 [place] Respitory Rate 18.0 01/15/2011 [place] Heart Rate 71.0 01/15/2011 [place] Diastolic (mm Hg) 59.0 01/15/2011 [place] [facility] Systolic (mm Hg) 106.0 01/15/2011 [place] Respitory Rate 18.0 01/15/2011 [place] Systolic (mm Hg) 110.0 01/15/2011 [place] Heart Rate 62.0 01/15/2011 [place] Temperature Oral (F) 97.9 F 01/15/2011 [place] Diastolic (mm Hg) 58.0 01/15/2011 [place] [facility] Height 162.56 cm 01/15/2011 [place] Weight 56.818 01/15/2011 [place] Height 162.56 cm 01/14/2011 [place] Weight 50.0 01/14/2011 [place] Systolic (mm Hg) 115.0 12/22/2010 [place] Diastolic (mm Hg) 78.0 12/22/2010 [place] Peripheral Pulse Rate 74.0 12/22/2010 [place] Respitory Rate 16.0 12/22/2010 [place] Height 162.56 cm 12/22/2010 [place] Weight 52.273 12/22/2010 [place] Temperature Oral (F) 98.2 F 12/22/2010 [place] Respitory Rate 16.0 12/22/2010 [place] Peripheral Pulse Rate 75.0 12/22/2010 [place] Diastolic (mm Hg) 77.0 12/22/2010 [place] [facility] Systolic (mm Hg) 125.0 12/22/2010 [place] Encoun[place] Location Location Encounter Encounter Reason Attending ADM ND Stat us Source Details Type Number For Provider Date Date Visit Emergency [id number] ABD TRA PSYK 08/15 08/16 Acti ve [facility] 8 PAIN, /2009 [place] Emergency [id number] UPPER BE 09/20 09/[address] [facility] ABDOMINA [place] /2009 [place] Emergency [id number] EAR PAIN TRA PSYK 10/09 10[facility] [place] [id number] CHEST TAJUDDIN 10/31 11/02 Active [place] 1 PAIN CONSUELO /2009 [place] Emergency [id number] ABDOMINA TROY 01/03 01/03 Active [place] 2 L PAIN ROW[place] /2009 [place] [id number] ABDOMINA CHRISTOPHER 01/05 01/07 Activ e [place] 4 L PAIN GONZALEZ /2009 [place] Emergency [id number] SU[place] TRA PSYK 07/21 07/21 Acti ve [place] 6 HIGH,VAG /2010 [place] BLEEDING Emergency [id number] FACIAL TROY 10/07 10/[address] 7 AND NECK ROW[place] /2010 [place] PAIN [place] Inpatient [id number] FACIAL TARAH 10/09 10/13 Active [facility] 8 NECK BRIDGES /2010 [place] CELLULIT [place] IS Emergency [id number] MOISE MONTEMAYOR 12/22 12/22 Disc harg [facility] ed [place] OU [id number] CHEST DEE CROCKETT 01/14 01/15 Active [facility] 0 PAIN /2010 [place] OU [id number] CHEST DEE CROCKETT 02/11 02/11 Active [place] [facility] PAIN, /2010 [place] DIZZINES [place] S,HYPERG LYCEMIA, UTI Emergency [id number] LOWER LIZY 03/25 03/26 Active [facility] 2 ABD WIS[place]AN /2010 [place] PAIN/ [place] HIGH [place] Emergency [id number] RIGHT LIZY 04/19 04/20 Active [facility] 3 ABDOMINA WISEMAN /2011 [place], [place] BLOOD IN URINE Emergency [id number] BLEEDING TROY 05/07 05/07 Active [facility] 4 / RT ROW[place] /2011 [place] SIDE [place] PAIN Emergency [id number] ABDOMINA VIMI SHOEMAKER 05/22 05/23 Ac tive [facility] 5 L PAIN /2011 [place] HIGH [place] BLOOD [place] Emergency [id number] LEFT VIMI SHOEMAKER 10/23 10/24 Acti ve [facility] 6 LOWER /2011 [place] ABDOMINA [place] L PAIN Emergency [id number] BLOOD VIMI SHOEMAKER 11/27 11/27 Acti ve [facility] 7 SUGAR /2011 [place] PROBLEM [place] YEIMY [id number] GUIDO 02/05 02/05 Discharg [facility] 9 BAVISHI /2011 ed [email or web address] Outpatient [id number] ABDOMINA GUIDO 02/16 Active [facility] 8 L PAIN [facility] Emergency [id number] Moise Montemayor 12/27 12/27 [facility] [facility] Observation [id number] Greg 01/25 01/26 [facility] 1 [id number] Rudolph 02/25 02/25 Jona 2 Pilar Escobar [facility] [id number] Rudolph 02/26 02/26 Jona 3 [place] [facility] Outpatient [id number] ABD PAIN MESHA Jose Alfredo e [facility] 3 [facility] Procedures Procedure Code Date Perfomer Comments Source Appendectomy [id number] [facility] Cholecystectomy [id number] [facility] Partial hysterectomy [id number] [facility] Assessment and Plan Assessment and Plan Date Source Extracted from:Title: Progress Note * 01/26/2017 [facility] Author: Marie June MD Date: 01/25/17 Impression and Plan The patient was seen and examined by me with the resident/HOME HEALTH NURSE LICENSED PRACTICAL/PA and I agree with the History/Exam documented. [...]
--- OUTSIDE RECORDS SUMMARY | 2020-05-24 03:15 | XMS REPORT | Continuity of Care Document ---
:1965 Author Organization [facility] t Address [address] [place] [address] Care Team Providers Name Role Phone Sharpless [...] 2017-02-03 Memoria 9-15 10:25:00 l HURT 00:00: [place] TOES 00 Active 12/27/2016 [facility] [place] ABDOMINAL Diagnosis Active 2011-042012-02-17 Memoria PAIN 0-26 10:42:00 l 00:00: [place] ABDOMINAL 00 PAIN Active 02/07/2012 [facility] EGD Diagnosis Active 2011-042012-02-06 Mem oria 0-24 10:10:00 l EGD 06:00: [place] 00 Active 02/05/2012 [facility] BLOOD Diagnosis Active 2011-12-11 Mem oria SUGAR 8-16 11:15:00 l PROBLEM BLOOD 15:00: [place] SUGAR 00 PROBLEM Active 11/28/2011 [place] LEFT LOWER Diagnosis Active 2011-12-11 Memoria ABDOMINAL 7-12 10:48:00 l PAIN LEFT 08:00: [place] LOWER 00 ABDOMINAL PAIN Active 10/24/2011 [place] ABDOMINAL Diagnosis Active 2011-12-11 Memoria PAIN HIGH 2-08 11:09:00 l BLOOD 22:00: [place] SUGAR ABDOMINAL 00 PAIN HIGH BLOOD SUGAR Active 05/22/2011 [place] BLEEDING/ Diagnosis Active 2011-12-11 Memoria RT SIDE 1-24 11:06:00 l PAIN 08:00: [place] BLEEDING/ 00 RT SIDE PAIN Active 05/07/2011 [place] RIGHTABDOM Diagnosis Active 2011-04-19 Memoria INAL PAIN 1-06 20:37:00 l . AND 00:00: [place] BLOOD IN RIGHTABDOM 00 URINE INAL PAIN . AND BLOOD IN URINE Active 04/19/2011 [place] RIGHT Diagnosis Active 2011-12-20 Mem oria ABDOMINAL 1-06 13:03:00 l PAIN, RIGHT 00:00: [place] BLOOD IN ABDOMINAL 00 URINE PAIN, BLOOD IN URINE Active 04/19/2011 [place] LOWER ABD Diagnosis Active 2010-042011-12-11 Memoria PAIN/ HIGH 2-12 11:02:00 l SUGAR LOWER 00:00: [place] ABD PAIN/ 00 HIGH SUGAR Active 03/25/2011 [place] CHEST PAIN Diagnosis Active 2010-042011-02-11 Memoria AND 0-30 01:56:00 l TIGHTNESS CHEST 18:00: Jorge Luis n PAIN AND 00 TIGHTNESS Active 02/10/2011 [place] CHEST Diagnosis Active 2010-042011-02-15 Mem oria PAIN, 0-30 21:58:00 l DIZZINESS, CHEST 18:00: Eugenia nn HYPERGLYCE PAIN, 00 EB, UTI DIZZINESS, HYPERGLYCE EB, UTI Active 02/10/2011 [place] CHEST PAIN Diagnosis Active 2010-042011-01-15 Memoria 0-03 16:36:00 l CHEST 15:00: [place] PAIN 00 Active 01/14/2011 [place] RIGHT KNEE Diagnosis Active 2010-12-22 Memoria 1ST 3 TOES 9-10 13:04:00 l NUMB RIGHT 11:00: [place] KNEE 1ST 3 00 TOES NUMB Active 12/22/2010 [place] FACIAL Diagnosis Active 2010-12-22 Mem oria NECK 10-08 13:04:00 l CELLULITIS FACIAL 00:00: Herm ava NECK 00 CELLULITIS Active 10/08/2010 [place] FACIAL AND Diagnosis Active 2010-12-22 Memoria NECK PAIN 10-07 13:04:00 l FACIAL 06:00: [place] AND NECK 00 PAIN Active 10/07/2010 [place] SUGAR Diagnosis Active 2010-12-22 Mem oria HIGH,VAGIN 07-21 13:04:00 l AL SUGAR 00:00: [place] BLEEDING HIGH,VAGIN 00 AL BLEEDING Active 07/21/2010 [place] ABD PAIN Diagnosis Active 2010-12-22 M emoria 01-05 13:04:00 l ABD PAIN 00:00: Jorge Luis n 00 Active 01/05/2010 [facility] EAR PAIN Diagnosis Active 2010-12-22 M emoria 10-09 13:04:00 l EAR PAIN 19:00: Jorge Luis n 00 Active 10/09/2009 [place] UPPER Diagnosis Active 2010-12-22 Mem oria ABDOMINAL 09-20 13:04:00 l PAIN UPPER 14:00: [place] ABDOMINAL 00 PAIN Active 09/20/2009 [place] ABD PAIN, Diagnosis Active 2010-12-22 Memoria HIGH SUGAR - 13:04:00 l ABD 00:00: [place] PAIN, HIGH 00 SUGAR Active 08/15/2009 [place] Abdominal Problem Active 2012-02-19 Me moria pain 09:23:16 l [place] Abdominal pain Active Problem 02/19/2012 [facility] [place] Cellulitis Problem Active 2012-02-19 M emoria 09:23:16 l [place] Cellulitis Active Problem 02/19/2012 [facility] [place] Chest pain Problem Active 2012-02-19 M emoria 09:23:16 l Chest [place] pain Active Problem 02/19/2012 [facility] [place] Hyperglyce Problem Active 2012-02-19 M emoria eb 09:23:16 l [place] Hyperglyce eb Active Problem 02/19/2012 [facility] [place] UTI - Problem Active 2012-02-19 Memor ia Urinary 09:23:16 l tract UTI - [place] infection Urinary tract infection Active Problem 02/19/2012 [facility] [place] Diabetes Problem Active 2017-03-01 Mem oria mellitus 04:36:24 l (disorder) Diabetes He rmann mellitus (disorder) Active Problem 03/01/2017 [facility] Restless Problem Active 2017-03-01 Mem oria legs 04:36:24 l (disorder) Restless He rmann legs (disorder) Active Problem 03/01/2017 [facility] Abdominal Problem Active 2017-03-01 Me moria pain 04:36:24 l (finding) [place] Abdominal pain (finding) Active Problem 03/01/2017 [facility] Chest pain Problem Active 2017-03-01 M emoria (finding) 04:36:24 l Chest [place] pain (finding) Active Problem 03/01/2017 [facility] Hyperglyce Problem Active 2017-03-01 M emoria eb 04:36:24 l (disorder) Jorge Luis n Hyperglyce eb (disorder) Active Problem 03/01/2017 [facility] Urinary Problem Active 2017-03-01 Nirmal feliz tract 04:36:24 l infectious Urinary Her pugh disease tract (disorder) infectious disease (disorder) Active Problem 03/01/2017 [facility] CHEST PAIN Diagnosis Active 2010-12-22 Memoria NOS 13:04:00 l CHEST [place] PAIN NOS Active [place] CELLULITIS Diagnosis Active 2010-12-22 Memoria NOS 13:04:00 l [place] CELLULITIS NOS Active [place] History of Past Illness Condition Condition Condition Status Onset Resolution Last Treating Co mments Source Name Details Category Date Date Treatment Clinician Date Hyperglyce Problem 2016-2017-03-01 2017-03-01 Memoria eb, - 04:36:24 04:36:24 l unspecifie 06:00: Jorge Luis n d Hyperglyce 00 eb, unspecifie d 02/25/2017 03/01/2017 [facility] Fever, Problem 2016-2017-03-01 2017-03-01 M emoria unspecifie 1-14 04:36:24 04:36:24 l d Fever, 06:00: [place] unspecifie 00 d 02/25/2017 03/01/2017 [facility] Radiculopa Problem 2016-2017-02-28 2017-02-28 Memoria thy, 1-14 05:26:25 05:26:25 l cervical 06:00: J[place] region Radiculopa 00 thy, cervical region 02/25/2017 02/28/2017 [facility] Displaced Problem 2016-2016-12-30 2016-12-30 Memoria unspecifie -15 05:13:20 05:13:20 l d fracture 05:00: Jorge Luis n of right Displaced 00 lesser unspecifie toe(s), d fracture initial of right encounter lesser for closed toe(s), fracture initial encounter for closed fracture 12/30/2016 [facility] Allergies, Adverse Reactions, Alerts Allergy Allergy Status Severity Reaction(s) Onset Inactive Treating Comm ents Source Name Type Date Date Clinician Poli Casiano [facility] adverse [facility] reaction [facility] Social History Social Habit Start Date Stop Date Quantity Comments Source Sex Assigned At [facility] Tobacco use and 2017-10-06 2017-10-06 Never used [facility] kes - exposure 00:00:00 00:00:00 [facility] Alcohol intake 2017-10-06 2017-10-06 [facility] 00:00:00 non-drinker of Medical nter alcohol (finding) Social History 2017-02-03 [facility] 15:24:44 Smoking Status Start Date Stop Date Source [facility] Medications Ordered Filled Start Stop Current Ordering Indication Dosage Frequency Signature Comments Components Source Medication Medication Date Date Medication? Clinician (SIG) Name Name rOPINIRole Yes 1mg [id number] Take [address] [facility] (REQUIP) 1 3-26 [id number] by mouth 3 [facility] - MG tablet 12:00: 3D (three) Medic al 28 times Center daily. pregabalin Yes 50mg [id number] Take [address] [facility] (LYRICA) 50 3-26 [id number] by mouth 3 [facility] - MG capsule 12:00: 3D (three) Medi steven 28 times Center daily. GI cocktail 2016-04 No Notes: Nirmal feliz 1-15 G.I. l 05:06: Cocktail = [place] 00 antacid with simethicon e 22.5 mL - lidocaine viscous 7.5 mL Zofran 2016-04 No Notes: Memoria 1-15 (Same as: l 04:41: Zofran) Jona 00 MEDICATION WASTE Product Size: 4 mg Product Wasted: ___ mg Zofran 2016-04 No Notes: Memoria 1-15 (Same as: l 02:34: Zofran) [place] 00 MEDICATION WASTE Product Size: 4 mg Product Wasted: ___ mg Morphine 2016-04 No Notes: Memoria 1-15 (Same l 02:34: as:MORPhin [place] 00 e Sulfate) Lidocaine 2016-04 Yes Notes: [...] Weight 49.545 kg, Start date: 02/25/17 20:22:00 RN CARDIOVASCULAR, Stop date: 02/25/17 20:22:00 RN CARDIOVASCULAR ibuprofen 2016-04 Yes 800 mg = 1 Me moria 800 mg oral 1-14 tab, PO, l tablet 07:20: Q8H, PRN [place] 00 Pain, Take with food, X 5 day, # 15 tab, 0 Refill(s) Acetaminoph 2016-04 Yes 1 - 2 tab, Memoria en 300 MG / -14 PO, Q4H, l Codeine 07:20: PRN Pain, [...] Memoria -14 (Same as: l 05:48: Valium) [place] 00 Ketorolac 2016-04 No 4 days Memor ia -14 l 05:48: MEDICATION [place] WASTE Product Size: 30 mg Product Wasted: ___ mg Ciprofloxac 2016-04 Yes 500 mg = 1 Memoria in 500 MG 0-15 tab, PO, l Oral Tablet 14:57: Q12H, for H ermann [Cipro] 00 UTI, X 3 day, # 6 tab, 0 Refill(s), Pharmacy: [id number] Humalog 100 2016-04 Yes 4 unit, Mem oria units/mL 0-15 SUB-Q, l 14:48: TID-Before Jona 00 Meals, hold insulin injection if your blood sugar is less than 140 mg/dL., # 10 mL, 0 Refill(s), Pharmacy: [facility] #[id number] pantoprazol 2016-04 Yes 40 mg = 1 M emoria e 40 MG 0-15 tab, PO, l Enteric 14:48: Daily, # Jorge Luis n Coated 00 30 tab, 0 Tablet Refill(s), [Protonix] Pharmacy: [facility] #[id number] Calcium 2016-04 Yes 500 mg = 1 Nirmal feliz Carbonate 0-15 tab, PO, l 500 MG 14:48: TID, # 6 [place] Chewable 00 tab, 0 Tablet Refill(s), Pharmacy: [facility] #[id number] Insulin 2016-04 Yes 15 unit, Memori a Glargine 0-15 SUB-Q, l 100 UNT/ML 14:48: Daily, # Her pugh Injectable 00 10 mL, 0 Solution Refill(s), [Lantus] Pharmacy: [id number] Calcium 2016-04 No Notes: Memoria Gluconate 0-15 WASTE: F/P l 14:47: - Sink; E Jona 00 - Municipal Trash Bin Calcium 2016-04 No Notes: Memoria Carbonate 0-15 (Same As: l 14:00: Tums) [place] Calcium Carbonate 500 mg = 200 mg elemental calcium Dose = mg calcium carbonate ( mg elemental calcium) Insulin 2016-04 No Notes: Memoria Glargine 0-15 Same as l 100 UNT/ML 02:00: Lantus Eugneia nn Injectable 00 Solostar Solution PEN Do [...] Memoria 0-14 Tablet l 22:00: should not [place] 00 be chewed or crushed. (Same as: Protonix) Magnesium 2016-04 No Notes: Memori a Oxide 0-14 (Same as: l 22:00: Mag-Ox [place] 00 400) Magnesium oxide 352tu=813n g elemental magnesium Dose=____m g magnesium oxide (___mg elemental magnesium) Ketorolac 2016-04 No 4 days Memor ia 0-14 l 17:02: MEDICATION [place] 00 WASTE Product Size: 30 mg Product Wasted: ___ mg Docusate 2016-04 No Notes: Memoria 0-14 (Same as: l 14:00: Colace) [place] 00 (Do Not Crush) Insulin 2016-04 No [...] Size: 1000 mg Product Wasted: ___ mg Glucagon 2016-04 No 1 mg, Memoria 0-14 Route: IM, l 06:35: Drug form: Jona 00 PDR/INJ, PRN, Dosing Weight 51.449, kg, PRN Blood Glucose Results, Start date: 01/25/17 1:35:00 CDT, Duration: 30 day, Stop date: 02/24/17 0:34:00 RN CARDIOVASCULAR Insulin 2016-04 No 60 Memoria Lispro 0-14 units) l 06:35: WASTE: F/P Jona 00 - Black; E - Municipal Trash Bin Stable for 28 days at room temperatur e. Expires in days from ____Date Dextrose 2016-04 No 25 gm, 50 Nirmal feliz 50% Syringe 0-14 mL, Route: l 06:35: IVP, Drug Jona 00 Form: INJ, Dosing Weight 51.449, kg, PRN, PRN Blood Glucose Results, Start date: 01/25/17 1:35:00 CDT, Duration: 30 day, Stop date: 02/24/17 0:34:00 RN CARDIOVASCULAR Hydralazine 2016-04 No Notes: Nirmal feliz 0-14 (Same as: l 06:35: Apresoline ) Push over 5 minutes Acetaminoph 2016-04 No Notes: Do M emoria en 0-14 not exceed l 06:32: 4 gm/day. Jona (Same as: Tylenol) Acetaminoph 2016-04 No Notes: Nirmal feliz en 325 MG / 0-14 (Same as: l Hydrocodone 06:32: [place] Eugenia nn Bitartrate 00 325/5) Do 5 MG Oral not exceed Tablet 4gm/day of acetaminop hen. Ondansetron 2016-04 No Notes: Nirmal fleiz 0-14 (Same as: l 06:32: Zofran) MEDICATION WASTE Product Size: 4 mg Product Wasted: ___ mg sodium 2016-04 No 1,000 mL, Memori a chloride 0-14 Rate: 75 l 0.9% 1000 06:32: ml/hr, Jorge Luis n ml INJ 00 Infuse 1,000 mL over: 13.3 hr, Route: IV, Dosing Weight 51.449 kg, Total Volume: 1,000, Start date: 01/25/17 1:32:00 CDT, Stop date: 02/24/17 1:31:00 RN CARDIOVASCULAR Saline 2016-04 No Notes: Memoria Flush 0.9% [...] / 12-27 (Same as: l Hydrocodone 04:47: [place] Eugenia nn Bitartrate 00 325/5) Do 5 MG Oral not exceed Tablet 4gm/day of [[place] acetaminop 5/325] hen. insulin Yes QD Inject [facility] glargine 05-15 subcutaneo [facility] - (LANTUS) 18:24: [facility] 100 unit/mL 46 nightly. Cent er injection Use as directed Sodium No Vimi 500 mL, Memoria Chloride 11-28 Roche Rate: 500 l 0.9% 03:47: ml/hr, [place] (Bolus) IV 00 Infuse 500 mL over: 1 hr, Route: IV, Dosing Weight 50 kg, Total Volume: 500, Bolus Dose, Priority: STAT, Start date: 11/28/11 22:47:00, Duration: 1 doses or times, Stop date: 11/28/11 23:46:00 NovoLog 2011- Yes Substituti Nirmal feliz 11-28 on Allowed l 03:29: [place] Insulin 0 No Vimi 7 unit, Memoria regular 11-28 Roche Route: l 02:51: IVP, ONCE, Dosing Weight 50, kg, Priority: STAT, Start date: 11/28/11 21:51:00, Stop date: 11/28/11 21:51:00 ketorolac 0 No Vimi 30 mg, Memori a 11-28 Roche Route: l 02:51: IVP, Drug form: INJ, ONCE, Dosing Weight 50, kg, Priority: STAT, Start date: 11/28/11 21:51:00, Stop date: 11/28/11 21:51:00 ondansetron No Vimi 4 mg, Memor ia 11-28 Roche Route: l 02:51: IVP, ONCE, Dosing Weight 50, kg, Priority: STAT, Start date: 11/28/11 21:51:00, Stop date: 11/28/11 21:51:00 Sodium 2011- No Vimi 1,000 mL, Memori a Chloride 11-28 Roche Rate: l 0.9% 02:51: 1,000 [place] (Bolus) IV 00 ml/hr, 1,000 mL Infuse over: 1 hr, Route: IVPB, kg, Total Volume: 1,000, Bolus Dose, Priority: STAT, Start date: 11/28/11 21:51:00, Duration: 1 doses or times, Stop date: 11/28/11 22:50:00 Saline 2011-0 No Vimi 5 ml, Memoria Flush 0.9% -17 Roche Route: l 02:51: IVP, Drug Jona 00 Form: INJ, kg, PRN, PRN Line Flush, Start date: 11/28/11 21:51:00, Duration: 30 day, Stop date: 12/28/11 21:50:00 [place] 5/325 2011- Yes Juan 1-2 tab, M emoria oral tablet 7-13 Keith PO, Q4-6H, l 06:12: Yeaton PRN, 15 [place] 25 tab, Pain, Substituti on Allowed, Soft Stop Zofran ODT Yes Juan 4 mg, 1 Mem oria 4 mg oral 7-13 Keith tab, PO, l tablet, 06:12: [place]aton TID, PRN, Her pugh disintegrat 16 10 tab, ing Nausea and Vomiting, Substituti on Allowed morphine 2011- No Juan 4 mg, 2 Memor ia Sulfate 7-13 Keith mL, Route: l 05:22: Yeaton IVP, Drug Jorge Luis n 00 form: INJ, ONCE, Priority: STAT, Start date: 10/25/11 0:22:00, Stop date: 10/25/11 0:22:00 diphenhydrA 2011- No Juan 25 mg, Mem oria MINE 7-13 Keith Route: l 05:06: Yeaton IVP, ONCE, Eugenia nn 00 Priority: STAT, Start date: 10/25/11 0:06:00, Stop date: 10/25/11 0:06:00 morphine 2011- No Juan 4 mg, 2 Memor ia Sulfate 7-13 Keith mL, Route: l 03:06: [place]aton IVP, Drug Jorge Luis n 00 form: INJ, ONCE, Priority: STAT, Start date: 10/24/11 22:06:00, Stop date: 10/24/11 22:06:00 Sodium 2011-0 No Juan 1,000 mL, Memor ia Chloride 7-13 Keith Rate: l 0.9% 03:06: Yeaton 1,000 [place] (Bolus) IV 00 ml/hr, 1,000 mL Infuse [...] No Juan 5 unit, Memori a regular 7- Keith 0.05 mL, l 03:06: Yeaton Route: IV, Eugenia nn 00 Drug form: SOLN, ONCE, Priority: STAT, Start date: 10/24/11 22:06:00, Stop date: 10/24/11 22:06:00 morphine 2011-0 No Vimi 2 mg, Memoria Sulfate 2-09 Roche Route: l 07:52: IVP, ONCE, [place] 00 Start date: 05/23/11 1:52:00, Stop date: 05/23/11 1:52:00 Insulin 2011-0 No Vimi 5 unit, Memoria regular 2-09 Roche 0.05 mL, l 07:10: Route: Jona 00 IVP, Drug form: SOLN, ONCE, Priority: STAT, Start date: 05/23/11 1:10:00, Stop date: 05/23/11 1:10:00 Visipaque 2011-0 Yes Vimi 32,000 mg, Me moria 2-09 Roche 100 mL, l 05:47: Route: IV, Jona 00 Drug form: INJ, ONCE, Start date: 05/22/11 23:47:00, Stop date: 05/22/11 23:47:00 Insulin 2011-0 No Vimi 5 unit, Memoria regular 2-09 Roche 0.05 mL, l 05:36: Route: [place] 00 SUB-Q, Drug form: SOLN, ONCE, Priority: STAT, Start date: 05/22/11 23:36:00, Stop date: 05/22/11 23:36:00 morphine 2011- No Vimi 2 mg, 0.4 Nirmal feliz Sulfate 2- Roche mL, Route: l 05:04: IVP, Drug [place] form: INJ, ONCE, Priority: STAT, Start date: 05/22/11 23:04:00, Stop date: 05/22/11 23:04:00 ondansetron No Vimi 4 mg, 2 Mem oria 2- Roche mL, Route: l 05:04: IVP, Drug [place] 00 form: INJ, ONCE, Priority: STAT, Start date: 05/22/11 23:04:00, Stop date: 05/22/11 23:04:00 Sodium 2011- No Vimi 500 mL, Memoria Chloride 05-23 Roche Rate: l 0.9% 05:04: 1,000 [place] (Bolus) IV 00 ml/hr, 500 mL Infuse over: 0.5 hr, Route: IV, Total Volume: 500, Bolus dose, Priority: STAT, Start date: 05/22/11 23:04:00, Duration: 1 doses or times, Stop date: 05/22/11 23:33:00 Saline No Vimi 5 ml, Memoria Flush 0.9% 05-23 Roche Route: l 05:04: IVP, Drug Form: INJ, PRN, PRN Line Flush, Start date: 05/22/11 23:04:00, Duration: 24 hr, Stop date: 05/23/11 23:03:00 Pyridium Yes Sonal 200 mg, 1 Me moria 200 mg oral 1-25 Raulito tab, PO, l tablet 02:08: TID, 9 Jona 33 tab, Substituti on Allowed Cipro 500 Yes Sonal 500 mg, 1 M emoria mg oral 1-25 Raulito tab, PO, l tablet 02:07: Q12H, 28 Jona 41 tab, Substituti on Allowed, TAB Pyridium 2012-0 No Sonal 200 mg, 2 Me moria 1-25 Raulito tab, l 02:03: Route: PO, [place] 00 Drug form: TAB, ONCE, Priority: STAT, Start date: 05/07/11 20:03:00, Stop date: 05/07/11 20:03:00 Cipro 2011-0 No Sonal 500 mg, 2 Memor ia 1-25 Raulito tab, l 02:03: Route: PO, Jona 00 Drug form: TAB, ONCE, Priority: STAT, Start date: 05/07/11 20:03:00, Stop date: 05/07/11 20:03:00 Cipro 500 2011- Yes Juan 500 mg, 1 Me moria mg oral -07 Keith tab, PO, l tablet 06:55: Yeaton BID, 20 Jorge Luis n 31 tab, Substituti on Allowed Zofran ODT Yes Juan 4 mg, 1 Mem oria 4 mg oral -07 Keith tab, PO, l tablet, 06:55: Yeaton TID, PRN, Her pugh disintegrat 29 10 tab, ing Nausea and Vomiting, Substituti on Allowed [place] Yes Juan 1 tab, PO, Memor ia 10/325 oral - Keith Q4-6H, l tablet 06:55: Yeaton PRN, [...] Keith Rate: l 0.9% 03:30: Yeaton 1,000 [place] (Bolus) IV 00 ml/hr, 1,000 mL Infuse [...] No Juan 1 mg, Nirmal feliz ne 07 Keith Route: l 03:30: Yeaton IVP, ONCE, Eugenia nn 00 Priority: STAT, Start date: 04/19/11 21:30:00, Stop date: 04/19/11 21:30:00 magnesium 2010-04 Yes Mila 150 ml, Me moria citrate 2-13 Zay Phelps PO, ONCE, l 8.85% oral 05:57: 300 ml, Herm ava liquid 30 Substituti on Allowed, Maintenanc e, LIQ MiraLax 2010-04 Yes Mila 17 gm, PO, M emoria oral powder 2-13 [place] Phelps Daily, 255 l for 05:57: gm, [place] reconstitut 18 Substituti ion on Allowed, PDR/REC Phenergan 2010-04 Yes Mila 25 mg, 1 M emoria 25 mg oral 2-13 [place] Phelps tab, PO, l tablet 05:57: Q6H, PRN, Jorge Luis n 09 15 tab, Nausea, Substituti on Allowed Vicodin 2010-04 Yes Mila 1 tab, PO, M emoria 5/500 oral 2-13 [place] Phelps Q4-6H, l tablet 05:57: PRN, 24 Jona 05 tab, for Pain, Substituti on Allowed, Maintenanc e Sodium 2010-04 No Mila 1,000 mL, Mem oria Chloride 2-13 Zay Phelps Rate: l 0.9% 03:24: 1,000 [place] (Bolus) IV 00 ml/hr, 1,000 mL Infuse [...] Yes Mila 30,000 mg, Memoria 300 2-13 [place] Phelps 100 mL, l 03:15: Route: IV, [place] 00 Drug form: SOLN, ONCE, Start date: [...] 4 mg, 0.8 M emoria Sulfate 2-13 [place] Phelps mL, Route: l 02:19: IVP, Drug [...] tablet, 0-31 Daily, l chewable 17:29: tab, Jona 44 Substituti on Allowed, CHEWTAB Cipro 2010-04 No Dk 250 mg, 1 Memori a 0-31 Ari tab, l 16:00: Jonathan Route: PO, Herm Drug form: TAB, [id number], Start date: 02/11/11 11:00:00, Duration: 30 day, Stop date: 03/12/11 23:00:00 magnesium 2010-04 No [place] 400 mg, 1 M emoria oxide 0-31 Minhvu Victoriano tab, l 14:00: [place] Route: PO, Drug form: TAB, Daily, Start date: 02/11/11 9:00:00, Duration: 30 day, Stop date: 03/12/11 9:00:00 Lantus 2010-04 No Dk 70 unit, Memori a 0-31 Ari Route: l 14:00: Jonathan SUB-Q, [place] 00 Drug form: SOLN, Daily, Start date: 02/11/11 9:00:00, Duration: 30 day, Stop date: 03/12/11 9:00:00 Levemir 2010-04 No Dk 70 unit, Memor ia FlexPen 0-31 Ari 0.7 mL, l 14:00: Jonathan Route: [place] 00 SUB-Q, Drug form: INJ, Daily, Start [...] PO, Herm ava 00 Drug form: TAB, [id number], Start date: 02/11/11 3:00:00, Duration: 30 day, Stop date: 03/12/11 15:00:00 acetaminoph 2010-04 No Dk 1 tab, Mem oria en-hydrocod 0-31 Ari Route: PO, l one 07:25: [place] Drug Form: Herm ava 00 TAB, Q4H, [...] Mem oria 0-31 Ari cap, l 07:05: Jonathan Route: PO, Herm ava [...] Shauna 150 mL, l 04:55: Route: IV, [place] 00 Drug form: INJ, ONCE, Start date: 02/10/11 23:55:00, Stop date: 02/10/11 23:55:00 Zofran 2010-04 No Penelope S 4 mg, 2 Memori a 0-31 Shauna mL, Route: l 04:28: IVP, Drug [place] 00 form: INJ, ONCE, Start date: 02/10/11 [...] Shauna Route: PO, l 02:47: Drug form: [place] 00 TAB, ONCE, (Hold if SBP < [...] 0-31 Shauna Route: l 02:47: IVP, ONCE, [place] Priority: STAT, Start date: 02/10/11 21:47:00, Stop date: 02/10/11 21:47:00 Saline 2010-04 No Penelope S 5 ml, Memoria Flush 0.9% 0-31 Shauna Route: l 02:47: IVP, PRN, Jona PRN Line Flush, Start date: 02/10/11 21:47:00, [...] Victoriano tab, l 02:00: [place] Route: PO, [place] 00 Drug form: TAB, Bedtime, Start date: [...] Q12H, l tablet 15:37: Edwards 30 tab, [place] 31 Substituti on Allowed, TAB aspirin 325 2010-04 Yes Igovani 9,750 mg, Memoria mg tablet, 0-04 Xiaoguang 30 tab, l enteric 15:37: Edwards PO, Daily, Herm ava coated 18 30 tab, Substituti on Allowed, ECTAB metoprolol 2010-04 No Giovani 12.5 mg, Me moria 0-04 Xiaoguang 0.5 tab, l 15:36: Edwards Route: PO, [place] 00 Drug form: TAB, Q12H, Priority: NOW, [...] Jona 11 Substituti on Allowed ibuprofen 2010-04 Beth Duncan 400 mg, 1 M emoria 400 mg oral 0-04 Minhvu Victoriano tab, l tablet 05:00: [place] Route: PO, Eugenia nn 00 Drug form: TAB, Q8H, Start date: 01/15/11 0:00:00, Duration: 30 day, Stop date: 02/13/11 16:00:00 Saline 2010-04 Beth Duncan 5 ml, Memoria Flush 0.9% 0-04 Minhvu Victoriano Route: l 02:00: [place] IVP, Drug Form: INJ, Q12H, Start date: 01/14/11 21:00:00, Duration: 30 day, Stop date: 02/13/11 9:00:00 Levemir 2010-04 Beth Duncan 70 unit, Nirmal feliz FlexPen 0-04 Minhvu Victoriano 0.7 mL, l 02:00: [place] Route: [place] 00 SUB-Q, Drug form: INJ, Bedtime, Start date: 01/14/11 21:00:00, Duration: 30 day, Stop date: 02/12/11 21:00:00 Lantus 2010-04 Beth Duncan 70 unit, Memor ia 0-04 Minhvu Victoriano Route: l 02:00: [place] SUB-Q, Jona 00 Bedtime, Start date: 01/14/11 21:00:00, Duration: 30 day, Stop date: 02/12/11 21:00:00 Insulin 2010-04 Beth Duncan 6 unit, Memor [...] Duration: 30 day, Stop date: 02/13/11 19:21:00 glucagon 2010-04 No [place] 1 mg, Memori a 0-04 Minhvu Victoriano [...] Victoriano tab, l 00:21: [place] Route: SL, [place] 00 Drug form: TAB, Q5Min, PRN Chest [...] Victoriano tab, l 00:21: [place] Route: PO, [place] 00 Drug form: TAB, Q4H, PRN Headache, [...] [place] 4 mg, 1 M emoria 0-04 [place] Victoriano tab, l 00:21: [place] Route: PO, Drug form: TAB, Q8H, PRN Nausea & Vomiting, Start date: 01/14/11 19:21:00, Duration: 30 day, Stop date: 02/13/11 19:20:00 aspirin 325 2010-04 No Moise G 325 mg, 1 Memoria mg tablet 0-03 [place] tab, l 23:59: Route: PO, Drug form: TAB, ONCE, Priority: STAT, Start date: 01/14/11 18:59:00, Stop date: 01/14/11 18:59:00 Omnipaque 2010-04 Yes Mosie G 45,000 mg, Memoria 300 0-03 Davis [...] cocktail 2010-04 No Moise G 30 ml, Bebe emoria 0-03 [place] Route: PO, l 22:08: Drug Form: [place] 00 SUSP, ONCE, Routine, Start date: 01/14/11 [...] 0-03 [place] Route: l 20:20: IVP, Drug Jona 00 Form: INJ, PRN, PRN Line Flush, Start date: 01/14/11 15:20:00, Duration: 30 day, Stop date: 02/13/11 15:19:00 ibuprofen Yes Sonal 1 tab, PO, Memoria 400 mg oral 12-22 Raulito Q4H, PRN, l tablet 18:32: 20 tab, [place] 59 Pain, Substituti on Allowed acetaminoph Yes [...] Systolic (mm Hg) 2017-02-26 06:50:00 Nirmal rial [place] Diastolic (mm Hg) 2017-02-26 06:50:00 Mem orial [place] Respitory Rate 2017-02-26 06:50:00 Memori al Jona Temperature Oral (F) 2017-02-26 06:50:00 97.6 F [facility] Heart Rate 2017-02-26 06:50:00 [facility] Respitory Rate 2017-02-26 04:30:00 [facility] Systolic (mm Hg) 2017-02-26 04:30:00 [facility] Diastolic (mm Hg) 2017-02-26 04:30:00 [facility] Heart Rate 2017-02-26 04:30:00 [facility] Temperature Oral (F) 2017-02-26 00:55:00 98.8 F [facility] Weight 2017-02-26 00:55:00 [facility] BMI Calculated 2017-02-26 00:55:00 [facility] Height 2017-02-26 00:55:00 162.56 cm [facility] Systolic (mm Hg) 2017-02-26 00:55:00 [facility] Diastolic (mm Hg) 2017-02-26 00:55:00 [facility] Heart Rate 2017-02-26 00:55:00 [facility] Respitory Rate 2017-02-26 00:55:00 [facility] Respitory Rate 2017-02-25 07:35:00 [facility] Systolic (mm Hg) 2017-02-25 07:35:00 [facility] Diastolic (mm Hg) 2017-02-25 07:35:00 [facility] Temperature Oral (F) 2017-02-25 07:35:00 98.2 F [facility] Heart Rate 2017-02-25 07:35:00 [facility] BMI Calculated 2017-02-25 05:05:00 [facility] Weight 2017-02-25 05:05:00 [facility] Height 2017-02-25 05:05:00 162.56 cm [facility] Heart Rate 2017-02-25 05:05:00 [facility] Respitory Rate 2017-02-25 05:05:00 [facility] Temperature Oral (F) 2017-02-25 05:05:00 97.8 F [facility] Systolic (mm Hg) 2017-02-25 05:05:00 [facility] Diastolic (mm Hg) 2017-02-25 05:05:00 [facility] Weight 2017-02-25 04:55:00 [facility] Height 2017-02-25 04:55:00 167.64 cm [facility] Temperature Oral (F) 2017-02-25 04:55:00 97.8 F [facility] BMI Calculated 2017-02-25 04:55:00 [facility] Systolic (mm Hg) 2017-02-25 04:55:00 [facility] Diastolic (mm Hg) 2017-02-25 04:55:00 [facility] Respitory Rate 2017-02-25 04:55:00 [facility] Heart Rate 2017-02-25 04:55:00 [facility] Temperature Oral (F) 2017-01-26 16:47:00 98.5 F [facility] Heart Rate 2017-01-26 16:47:00 [facility] Respitory Rate 2017-01-26 16:47:00 [facility] Systolic (mm Hg) 2017-01-26 16:47:00 [facility] Diastolic (mm Hg) 2017-01-26 16:47:00 [facility] Heart Rate 2017-01-26 12:26:00 [facility] Respitory Rate 2017-01-26 12:26:00 [facility] Temperature Oral (F) 2017-01-26 12:26:00 98.4 F [facility] Systolic (mm Hg) 2017-01-26 12:26:00 [facility] Diastolic (mm Hg) 2017-01-26 12:26:00 [facility] Temperature Oral (F) 2017-01-26 09:50:00 98.1 F [facility] Heart Rate 2017-01-26 09:50:00 [facility] Systolic (mm Hg) 2017-01-26 09:50:00 [facility] Diastolic (mm Hg) 2017-01-26 09:50:00 [facility] Respitory Rate 2017-01-26 09:50:00 [facility] Height 2017-01-25 05:58:00 157.48 cm [facility] Weight 2017-01-25 05:58:00 [facility] BMI Calculated 2017-01-25 05:58:00 [facility] Weight 2017-01-25 02:01:00 [facility] BMI Calculated 2017-01-25 02:01:00 [facility] Height 2017-01-25 02:01:00 162.56 cm [facility] Systolic (mm Hg) 2016-12-27 06:03:00 [facility] Diastolic (mm Hg) 2016-12-27 06:03:00 [facility] Respitory Rate 2016-12-27 06:03:00 [facility] Heart Rate 2016-12-27 06:03:00 [facility] Temperature Oral (F) 2016-12-27 06:03:00 98.3 F [facility] Temperature Oral (F) 2016-12-27 04:22:00 98.4 F [facility] Respitory Rate 2016-12-27 04:22:00 [facility] Systolic (mm Hg) 2016-12-27 04:22:00 [facility] Diastolic (mm Hg) 2016-12-27 04:22:00 [facility] BMI Calculated 2016-12-27 04:22:00 [facility] Weight 2016-12-27 04:22:00 [facility] Heart Rate 2016-12-27 04:22:00 [facility] Height 2016-12-27 04:22:00 162.56 cm [facility] Height 2012-02-06 15:19:00 162.56 cm [facility] Weight 2012-02-06 15:19:00 [facility] Height 2011-11-29 02:35:00 162.56 cm [facility] Weight 2011-11-29 02:35:00 [facility] Height 2011-10-25 02:45:00 162.56 cm [facility] Weight 2011-10-25 02:45:00 [facility] Height 2011-05-23 04:48:00 162.56 cm [facility] Weight 2011-05-23 04:48:00 [facility] Temperature Oral (F) 2011-05-08 02:38:00 98.5 F [facility] Diastolic (mm Hg) 2011-05-08 02:38:00 [facility] Systolic (mm Hg) 2011-05-08 02:38:00 [facility] Heart Rate 2011-05-08 02:38:00 [facility] Respitory Rate 2011-05-08 02:38:00 [facility] Weight 2011-05-08 00:09:00 [facility] Height 2011-05-08 00:09:00 162.56 cm [facility] Temperature Oral (F) 2011-05-08 00:09:00 98.6 F [facility] Diastolic (mm Hg) 2011-05-08 00:09:00 [facility] Systolic (mm Hg) 2011-05-08 00:09:00 [facility] Heart Rate 2011-05-08 00:09:00 [facility] Respitory Rate 2011-05-08 00:09:00 [facility] Respitory Rate 2011-04-20 07:05:00 [facility] Heart Rate 2011-04-20 07:05:00 [facility] Diastolic (mm Hg) 2011-04-20 07:05:00 [facility] Systolic (mm Hg) 2011-04-20 07:05:00 [facility] Diastolic (mm Hg) 2011-04-20 06:01:00 [facility] Rate 2011-04-20 06:01:00 [facility] Systolic (mm Hg) 2011-04-20 06:01:00 [facility] Respitory Rate 2011-04-20 06:01:00 [facility] Weight 2011-04-20 02:25:00 [facility] Systolic (mm Hg) 2011-04-20 02:25:00 [facility] Temperature Oral (F) 2011-04-20 02:25:00 98.0 F [facility] Respitory Rate 2011-04-20 02:25:00 [facility] Heart Rate 2011-04-20 02:25:00 [facility] Diastolic (mm Hg) 2011-04-20 02:25:00 [facility] Temperature Oral (F) 2011-03-26 06:05:00 98.0 F [facility] Respitory Rate 2011-03-26 06:05:00 [facility] Heart Rate 2011-03-26 06:05:00 [facility] Systolic (mm Hg) 2011-03-26 06:05:00 [facility] Diastolic (mm Hg) 2011-03-26 06:05:00 [facility] Height 2011-03-26 01:58:00 160.02 cm [facility] Weight 2011-03-26 01:58:00 [facility] Temperature Oral (F) 2011-03-26 01:58:00 99.0 F [facility] Diastolic (mm Hg) 2011-03-26 01:58:00 [facility] Systolic (mm Hg) 2011-03-26 01:58:00 [facility] Respitory Rate 2011-03-26 01:58:00 [facility] Heart Rate 2011-03-26 01:58:00 [facility] Diastolic (mm Hg) 2011-02-11 15:37:00 [facility] Respitory Rate 2011-02-11 15:37:00 [facility] Systolic (mm Hg) 2011-02-11 15:37:00 [facility] Heart Rate 2011-02-11 15:37:00 [facility] Temperature Oral (F) 2011-02-11 15:37:00 98.1 F [facility] Diastolic (mm Hg) 2011-02-11 11:53:00 [facility] Systolic (mm Hg) 2011-02-11 11:53:00 [facility] Temperature Oral (F) 2011-02-11 11:53:00 97.5 F [facility] Rate 2011-02-11 11:53:00 [facility] Respitory Rate 2011-02-11 11:53:00 [facility] Height 2011-02-11 07:38:00 162.56 cm [facility] Weight 2011-02-11 07:38:00 [facility] Respitory Rate 2011-02-11 07:38:00 [facility] Temperature Oral (F) 2011-02-11 07:38:00 98.0 F [facility] Heart Rate 2011-02-11 07:38:00 [facility] Systolic (mm Hg) 2011-02-11 07:38:00 [facility] Diastolic (mm Hg) 2011-02-11 07:38:00 [facility] Weight 2011-02-11 02:32:00 [facility] Height 2011-02-11 02:32:00 162.56 cm [facility] Diastolic (mm Hg) 2011-01-15 16:44:00 [facility] Systolic (mm Hg) 2011-01-15 16:44:00 [facility] Temperature Oral (F) 2011-01-15 16:44:00 97.0 F [facility] Heart Rate 2011-01-15 16:44:00 [facility] Respitory Rate 2011-01-15 16:44:00 [facility] Temperature Oral (F) 2011-01-15 12:18:00 97.2 F [facility] Respitory Rate 2011-01-15 12:18:00 [facility] Heart Rate 2011-01-15 12:18:00 [facility] Diastolic (mm Hg) 2011-01-15 12:18:00 [facility] Systolic (mm Hg) 2011-01-15 12:18:00 [facility] Respitory Rate 2011-01-15 09:30:00 [facility] Systolic (mm Hg) 2011-01-15 09:30:00 [facility] Heart Rate 2011-01-15 09:30:00 [facility] Temperature Oral (F) 2011-01-15 09:30:00 97.9 F [facility] Diastolic (mm Hg) 2011-01-15 09:30:00 [facility] Height 2011-01-15 01:35:00 162.56 cm [facility] Weight 2011-01-15 01:35:00 [facility] Height 2011-01-14 20:07:00 162.56 cm [facility] Weight 2011-01-14 20:07:00 [facility] Systolic (mm Hg) 2010-12-22 18:51:00 [facility] Diastolic (mm Hg) 2010-12-22 18:51:00 [facility] Peripheral Pulse Rate 2010-12-22 18:51:00 [facility] Respitory Rate 2010-12-22 18:51:00 [facility] Height 2010-12-22 16:57:00 162.56 cm [facility] Weight 2010-12-22 16:57:00 [facility] Temperature Oral (F) 2010-12-22 16:57:00 98.2 F [facility] Respitory Rate 2010-12-22 16:57:00 [facility] Peripheral Pulse Rate 2010-12-22 16:57:00 [facility] Diastolic (mm Hg) 2010-12-22 16:57:00 [facility] Systolic (mm Hg) 2010-12-22 16:57:00 [facility] Procedures Procedure Date / Time Performed Performing Clinician Sour e Appendectomy [facility] Cholecystectomy [facility] Partial hysterectomy [facility] rmann Plan of Care Planned Activity Planned Date Details Comments Source Future Scheduled 2019-12-[address] [facility] - Test 00:00:00 (#1) [code = [facility] INFLUENZA VACCINE (#1)] Future Scheduled [address] [facility] 00:00:00 (procedure) [code = [facility] 07210831] Future Scheduled [address] [facility]:00 malignant neoplasm [facility] enter of cervix (procedure) [code = 699193336] Future Scheduled [address] [facility] Test 00:00:00 malignant neoplasm [facility] enter of breast (procedure) [code = 961419063] Future Scheduled [address] [facility] Test 00:00:00 malignant neoplasm [facility] enter of colon (procedure) [code = 411646949] Encounters Start End Encounter Admission Attending Care Care Encounter Source Date/Time Date/Time Type Type Clinicians Facility Department ID 2018-11-26 2018-11-26 Emergency [facility] [id number] 11:32:46 15:11:00 Edgard Medley [id number] [place] [id number] Arnold [id number] 2018-11-26 2018-11-26 Orders Doctor MIKE [id number] 00:00:00 00:00:00 Only Unassigned, [place] [id number] Rachel [facility] [id number] 2017-02-25 2017-02-26 Outpatient Quezada, 2.16.840. 2.16.840.1. 4 [id number] 18:38:00 00:55:00 Rudolph [id number] 03 Mateo [id number] 5.120 2017-02-24 2017-02-25 Outpatient Quezada, 2.16.840. 2.16.840.1. 4 [id number] 22:49:00 01:35:00 Rudolph [id number] 02 Mateo 3.615.120 5.120 2017-01-24 2017-01-26 Outpatient Kayla, 2.16.840. 2.16.840.1 . [id number] 20:53:00 14:35:00 Greg Giron [id number] 01 [id number] 5.120 2016-12-26 2016-12-27 Outpatient Davis, 2.16.840. 2.16.840.1. 4 [id number] 23:03:00 01:05:00 Moise Rojas [id number]. [id number] 00 3.615.120 5.120 Results Test Description Test Time Test Comments Results Result Comments Source POCT-GLUCOSE METER 2017-10-07 11:53:00 Test Item Value Reference Range Interpretation Comme nts POC-GLUCOSE METER (BEAKER) (test 277 mg/dL 70-110 H TESTED AT [address] POINT code = 1538) [address] [facility] [address] POCT-GLUCOSE [id number] 11:53:00 Test Item Value Reference Range Interpretation Comments POC-GLUCOSE METER 411 mg/dL 70-110 HH TESTED AT [address] ([facility]) (test code POINT PK [facility] = 1538) [address] RAD, SPINE, CERVICAL, 2 OR 3 [id number] 23:46:00Reason for exam:->neck painFINAL REPORT RAD, SPINE, [...] Grayson Verified Date/Time: 10/06/2017 23:46:30 Reading Location: [address] Transitional Reading Room CT, SPINE, CERVICAL, [...] evaluation as clinically warranted. Signed: Clarence Grayson [facility] Verified Date/Time: 10/06/2017 23:44:40 Reading Location: [address] Transitional Reading Room CT, BRAIN, WITHOUT [...] MDReport Verified Date/Time: 10/06/2017 23:24:44 Reading Location: [address] Reading Room TROPONIN I 2017-10-06 22:56:00 [...] acute neurological disease, and persistent tachyarrhythmia.COMPREHENSIVE METABOLIC [id number] 22:50:00 Test Item Value Reference Range Interpretation [...] S NOT APPLICABLE FOR DIALYSIS PATIEN TS. [id number] 22:42:00 Test Item Value Reference Range Interpretation Comments AMYLASE (BEAKER) (test code = 349) 58 U/L 30-110 CBC W/PLT COUNT & AUTO [id number] 22:22:00 Test Item Value Reference Range Interpretation [...] 0.00-0.20 (test code = 417) URINALYSIS W/ [id number] 22:09:00 Test Item Value Reference Range Interpretation [...] code = 1663) SOURCE(BEAKER) (test code = 6861) POCT-GLUCOSE [id number] 07:19:00 Test Item Value Reference Range Interpretation Comments POC-GLUCOSE METER 241 mg/dL 70-110 H TESTED AT [address] ([facility]) (test code POINT [address] [facility] [place] = 1538) [address] CT, [id number] 19:16:00FINAL REPORT CT OF THE ABDOMEN AND [...] MDReport Verified Date/Time: 09/22/2017 19:16:29 Reading Location: [address] Consult Reading Room [facility] METABOLIC [id number] 17:37:00 Test Item Value Reference Range Interpretation [...] 697) EGFR (BEAKER) (test 64 mL/min/1.73 ESTIMA PRATIAM GFR IS code = 1092) sq m NOT ACCURATE CREATININE CLEARANCE IN PREDICTING GLOMERULAR FILTRATION RATE . ESTIMATED GFR I S NOT APPLICABLE FOR DIALYSIS PATIEN TS. TROPONIN [id number] 17:07:00 Test Item Value Reference Range Interpretation [...] (test code = 749) 26 U/L 6-51 [id number] 16:51:00 Test Item Value Reference Range Interpretation Comments AMYLASE (BEAKER) (test 32 U/L 30-110 Speci men markedly code = 349) hemolyzed URINALYSIS W/ [id number] 16:21:00 Test Item Value Reference Range Interpretation [...] = 2795) CBC W/PLT COUNT & AUTO [id number] 16:15:00 Test Item Value Reference Range Interpretation [...] L 0.00-0.20 (test code = 417) POCT-GLUCOSE [id number] 15:36:00 Test Item Value Reference Range Interpretation Comments POC-GLUCOSE METER 284 mg/dL 70-110 H [facility] ([facility]) (test code POINT [facility] [place] = 1538) [address] CT, [id number] 15:32:00Reason for exam:->LLQ ABD PAINIs the patient [...] MDReport Verified Date/Time: 07/07/2017 15:32:20 Reading Location: [facility] B1 C013Y CT Body Reading Room LIPASE 2017-07-07 14:41:00 Test Item Value Reference Range Interpretation Comments LIPASE (BEAKER) (test code = 749) 32 U/L 6-51 COMPREHENSIVE METABOLIC [id number] 14:40:00 Test Item Value Reference Range Interpretation [...] NOT APPLICABLE FOR DIALYSIS PATIEN TS. POCT-GLUCOSE [id number] 14:10:00 Test Item Value Reference Range Interpretation Comments POC-GLUCOSE METER 352 mg/dL 70-110 H TESTED AT [address] (BEAKER) (test code POINT [facility] [place] = 153) [address] CBC W/PLT COUNT & AUTO [id number] 13:30:00 Test Item Value Reference Range Interpretation [...] 0.00-0.20 (test code = 417) URINALYSIS W/ [id number] 13:01:00 Test Item Value Reference Range Interpretation [...] 1663) SOURCE(BEAKER) (test code = 2795) KETONE, [id number] 12:58:00 Test Item Value Reference Range Interpretation Comments KETONES, BLOOD (BEAKER) (test code 0.1 mmol/L <0.4 = 1103) BLOOD GAS, [id number] 12:48:00 Test Item Value Reference Range Interpretation [...] (test code = 1819) 37.0 % POCT-GLUCOSE [id number] 12:04:00 Test Item Value Reference Range Interpretation Comments POC-GLUCOSE METER > mg/dL 70-110 HH OUTSIDE ME ASURING (BEAKER) (test code [facility] = 1538) [place] [facility] [address] BACTERIAL - [id number] 03:02:00Negative (02/25/17 9:02 PM)[facility] [id number] 03:02:00 Test Item Value Reference Range Interpretation Comments Tube Num CSF (test code = Tube Num CSF) 1 1 [facility] [id number] 03:02:00Clear (02/25/17 9:02 PM)[facility] [id number] 03:02:00Colorless (02/25/17 9:02 PM)[facility] [id number] 03:02:00Colorless (02/25/17 9:02 PM)[facility] [id number] 03:02:002[facility] [id number] 03:02:001[facility] [id number] 03:02:001[facility] [id number] 03:02:002[facility] [id number] 03:02:00 Colorless (02/25/17 9:02 PM)[facility] [id number] 03:02:00Clear (02/25/17 9:02 PM)[facility] [id number] 03:02:00 Test Item Value Reference Range Interpretation Comments Tube Num CSF (test code = Tube Num CSF) 4 1 [facility] [id number] 03:02:00Colorless (02/25/17 9:02 PM) [facility] [id number] 03:02:29644Ovwivgcc HermannBODY FLUIDS 2017-02-26 03:02:0055[facility]annFUNGAL - [id number] 03:02:00 Negative (02/25/17 9:02 PM)[facility] DrwkyetGPIAWWSZXT6974-02-39 03:02:00Non Reactive (02/25/17 9:02 PM)[facility]annMOLECULAR [id number] 03:02:00Negative 2(02/25/17 9:02 PM)[facility]annMOLECULAR DIAGNOSTIC 2017-02-26 03:02:00Negative 1(02/25/17 9:02 PM)[facility]annVIRAL - SEROLOGY 2017-02-26 03:02:00Negative (02/25/17 9:02 PM)[facility]annCHEM PANEL 2017-02-26 01:42:000.9[facility]annCHEM [id number] 01:42:0023[facility]annCHEM VONCD9212-17-12 01:42:004.3[facility]annCHE[facility] [id number] 01:42:0011.3[facility]annCHEM [id number] 01:42:73609Kckglrge HermannCHEM [id number] 01:42:000.3[facility]annCHEM [id number] 01:42:0016 [facility]annCHE[facility] [id number] 01:42:0017[facility]annCHEM PANEL 2017-02-26 01:42:008.2[facility]annCHE[facility] [id number] 01:42:004.3[facility]annCHEM [id number] 01:42:78618Hhjggcnw HermannCHEM IPPCY4102-16-05 01:42:000.70[facility]annCHEM MUXTV8862-71-79 01:42:79275Nvhhwomb HermannCHEM [id number] 01:42:008.9[facility]annCHEM [id number] 01:42:0097 [facility]annCHE[facility] [id number] 01:42:0026[facility]annCHEM PANEL 2017-02-26 01:42:23755Invifbkd HermannCHEM [id number] 01:42:0016[facility]annCHEM [id number] 01:42:003.9[facility]annCHEM [id number] 01:42:001.8[facility] OfacydaSLJVODUETI9595-24-48 01:42:77262Zqthqjtl [facility] LKZFVKBLMI3069-17-18 01:42:0082.2[facility] UirnkjtNBKCHXERKK5599-43-09 01:42:00 37.1[facility] VhyulxoGRANAJGUMK1312-94-32 01:42:007.4[facility] HermannHEMATOLOGY 2017-02-26 01:42:0014.1[facility] [id number] 01:42:00 Test Item Value Reference Range Interpretation Comments MCH (test code = MCH) 27.6 pg 27.0-31.0 [facility] RchnoliESWHYVRRSJ7588-19-53 01:42:0033.6[facility] HermannHEMATOLOGY 2017-02-26 01:42:004.52[facility] XhxozhsMPWJJYQIDR6930-53-17 01:42:0012.5[facility] RfwepreTNORIFNHOG4143-34-13 01:42:007.1[facility] RmgyjemDHFXZWYPSR0052-96-60 01:42:000.8[facility] SxlamwhFROJQJFDYO9708-95-95 01:42:002.8[facility] UTFDVAAOZM7514-53-14 01:42:003.8[facility] YumujafSVBEMKSVHN7983-08-78 01:42:000.4 [facility] RutxvnkMZRERGNEMC8519-30-20 01:42:0053.4[facility] HermannHEMATOLOGY 2017-02-26 01:42:0039.1[facility] WpoqonsPLVJJPYZHZ3556 01:42:001.4[facility] DvxcxipMUHQFKXMPE8311-34-93 01:42:005.3[facility] HfibxmrVXUNARMABM4881-32-01 01:42:000.1[facility] FktgphcAIZVUHYSDK9271-20-37 01:42:000.1[facility]annURINE AND TAYDC2892-09-87 01:42:000.2[facility]UR[facility] AND [id number] 01:42:00Negative (02/25/17 7:42 PM)[facility] [id number] 01:42:00Negative *NA*(02/25/17 7:42 PM)[facility] [id number] 01:42:00Negative *NA*(02/25/17 7:42 PM)[facility] [id number] 01:42:00Negative (02/25/17 7:42 PM)[facility] [id number] 01:42:00Negative (02/25/17 7:42 PM)[facility] AND [id number] 01:42:00Negative (02/25/17 7:42 PM)[facility] AND [id number] 01:42:00 Test Item Value Reference Range Interpretation Comments UA pH (test code = UA pH) 6.0 1 5.0-8.0 [facility] AND [id number] 01:42:00 Test Item Value Reference Range Interpretation Comments UA Spec Grav (test code = UA Spec 1.010 1 Grav) [facility] [id number] 01:42:00Yellow *NA*(02/25/17 7:42 PM) [facility] [id number] 01:42:00Slight Cloudy (02/25/17 7:42 PM)[facility]annVIRAL - [id number] 01:42:00Negative (02/25/17 7:42 PM)[facility]annVIRAL - [id number] 01:42:00Negative (02/25/17 7:42 PM)[facility]annCHEM GJIZV0306-29-95 09:02:58570Ukvdbpjp HermannCHEM PANEL 2017-01-26 09:02:000.2[facility] HermannCHEM YKNNZ0958-09-92 09:02:26817Kzmhlrpq HermannCHEM RMFBU7274-76-13 09:02:0012[facility] HermannCHEM UVKJN4807-61-65 09:02:003.3[facility] HermannCHEM TFKIB6915-05-71 09:02:002.4[facility]annCHEM JMEDV9913-99-10 09:02:005.7[facility] HermannCHEM HGZMB2429-68-23 09:02:009.7 [facility]annCHEM FTKIJ9965-28-73 09:02:68364Oabwhtou HermannCHEM PANEL 2017-01-26 09:02:007.4[facility] HermannCHEM SJFXD4447-15-73 09:02:000.7[facility] HermannCHEM UZJGG3968-33-72 09:02:000.40[facility] HermannCHEM GYDXL1860-80-34 09:02:005[facility] HermannCHEM IPXDF0938-35-69 09:02:0037[facility] HermannCHEM FHYEO6253-19-26 09:02:0044[facility] HermannCHEM WVYAW0732-38-68 09:02:003.7 [facility]annCHEM UXUSV7900-48-29 09:02:64337Amsdiuiz HermannCHEM PANEL 2017-01-26 09:02:0025[facility] HermannCHEM XEQZX7929-44-88 09:02:55476Mbsdmhfj HermannCARDIAC IPXHJNI7086-15-82 22:26:00<0.02[facility] HermannPARATHYROID RYNHWTX0152-79-94 22:26:000.99[facility] HermannPARATHYROID RGSDNVV1010-97-94 22:26:001.01[facility]annCHEM QWKGD1219-18-69 20:00:002.6[facility] HermannCHEM MMMTU3881-09-51 20:00:27253Pmjfbblu HermannCHEM FXFOR5772-21-74 20:00:000.50 [facility]annCHEM YWBRU7113-49-64 20:00:00380Tbrmmqxa HermannCHEM PANEL 2017-01-25 20:00:003.6[facility] HermannCHEM LMJKA0732-43-59 20:00:0025[facility] HermannCHEM UJCFZ9342-45-96 20:00:88604Jckkruze HermannCHEM CFAUJ8920-67-51 20:00:008.6[facility] HermannCHEM ZNIIL4343-72-72 20:00:006.9[facility] HermannCHEM XLJDF6292-54-05 20:00:23523Dmzrajjb HermannCHEM KCTHM2242-88-92 20:00:008 [facility]annCHEM CWTFJ4746-99-75 08:54:002.7[facility] HermannCHEM PANEL 2017-01-25 08:54:89345Hpacyqnl HermannCHEM MSWNV5954-71-46 08:54:000.60[facility] HermannCHEM ZMNDN8360-00-26 08:54:009[facility] HermannCHEM MRLJM3467-08-58 08:54:10066Kzcznbnb HermannCHEM FKGMN5592-17-10 08:54:0012.5[facility] HermannCHEM CYHJB7681-71-97 08:54:003.5[facility] HermannCHEM EZLTT5396-23-34 08:54:44914 [facility]annCHEM OOWKV5334-87-53 08:54:0023[facility] HermannCHEM PANEL 2017-01-25 08:54:007.1[facility] HermannCHEM QGZUW7690-32-75 08:54:72637Jketktvu HermannCHEM RGDKR9758-06-22 08:54:001.7[facility] IwxzlyuAPYHQUMQAD7984-17-54 08:54:007.4[facility] WdjsszsXXTSVRBCYJ8635-38-37 08:54:0013.6[facility] Jona PHMWFXPWOX5882-28-50 08:54:29107Qriykjui BraiyonQDKAXLOQUY9825-40-84 08:54:00 33.4[facility] KbbhtahERJBAWJBCI9478-54-71 08:54:0082.5[facility] HermannHEMATOLOGY 2017-01-25 08:54:00 Test Item Value Reference Range Interpretation Comments MCH (test code = MCH) 27.6 pg 27.0-31.0 [facility] NxwccdjLPKGEWAKHU9689-69-20 08:54:0010.7[facility] HermannHEMATOLOGY 2017-01-25 08:54:0032.0[facility] IwoqcdkLUKXTWCBAL2845-18-16 08:54:005.5[facility] OvpevyfPNLODOVBUM5886-71-55 08:54:003.88[facility] YobjtbqXRMBCRRCHL3175-03-79 08:54:007.2[facility] OkbsruwARFVECPTUQ6182-35-99 08:54:000.4[facility] BQWZDCORHY3673-51-42 08:54:003.0[facility] KdsjvmaFGZPEDOVYF1677-06-28 08:54:002.0 [facility] QfxfyjcTHPUCOPATY8696-05-72 08:54:000.9[facility] HermannHEMATOLOGY 2017-01-25 08:54:000.6[facility] VjvfekbZHPXQFKAMY0822-08-69 08:54:0036.3[facility] NvggwbhWLGPZYPXKY9770-23-42 08:54:0055.0[facility] HermannURINE AND STOOL 2017-01-25 04:54:00Negative (01/24/17 11:54 PM)[facility]annURINE AND STOOL 2017-01-25 04:54:00Positive *ABN*(01/24/17 11:54 PM)[facility]annUR[facility] AND JJQRB4418-00-01 04:54:00Negative (01/24/17 11:54 PM)[facility]UR[facility] AND KVWJS9795-06-24 04:54:00Negative *NA*(01/24/17 11:54 PM)[facility]annUR[facility] AND QCCDU7222-65-70 04:54:00Negative (01/24/17 11:54 PM)[facility] AND SIHOX0230-84-19 04:54:000.2[facility]annUR[facility] AND XAAMM7998-05-89 04:54:00Negative *NA*(01/24/17 11:54 PM)[facility]annURINE AND STOOL 2017-01-25 04:54:00 Test Item Value Reference Range Interpretation Comments UA pH (test code = UA pH) 5.5 1 5.0-8.0 [facility] [facility]INE AND TDKUZ9748-67-73 04:54:00<=1.005 *NA*(01/24/17 11:54 PM)[facility] WKVXU1888-52-76 04:54:00Yellow *NA*(01/24/17 11:54 PM)[facility] FQXGE8017-29-19 04:54:00Clear (01/24/17 11:54 PM) [facility]annCARDIAC JJAOFWI0097-45-30 02:44:0062[facility]ann[facility]ARDIAC XEIGBXB3428-88-03 02:44:00<1.0[facility]annCARDIAC INCAKKG1260-83-64 02:44:00<0.02[facility]annCARDIAC YOYQVHC1194-43-92 02:44:00<1.6 [facility]annCHEM UJUEA0126-60-41 02:44:0014[facility]annCHEM PANEL 2017-01-25 02:44:000.5[facility]annCHEM XWWIF0796-35-45 02:44:0037[facility]annCHEM ZQUKB5833-43-89 02:44:31654Lguqxpea HermannCHEM JECTJ8116-43-63 02:44:000.7[facility]annCHEM ZHDJX5358-73-56 02:44:004.7[facility]annCHEM ZMRHZ0950-75-25 02:44:003.5[facility] HermannCHEM WBBCX1205-12-52 02:44:0016 [facility]annCHEM VLGUN8632-60-97 02:44:008.2[facility]annCHEM PANEL 2017-01-25 02:44:23643Aftotymv XfpnkonYPGCEOASFZ4053-55-13 02:44:0013.7[facility] AfctyfbSSLENQPVUC8252-58-69 02:44:0041.6[facility] CkfonvcTQWFFYUFEJ6354-94-86 02:44:0083.6[facility] XqorfgiVYXWWLHGRZ9793-74-49 02:44:00 Test Item Value Reference Range Interpretation Comments MCH (test code = MCH) 27.5 pg 27.0-31.0 [facility] VidxzrfXINNGIJHIS3327-57-66 02:44:0032.9[facility]annHEMATOLOGY 2017-01-25 02:44:0013.6[facility] UvkchbkTWSSQHWIGE0766-78-44 02:44:05558Dydtentp TgqqbkkICCCDKFDON3293-28-74 02:44:008.1[facility] GxmcfziTSJFRPXLHO3564-29-71 02:44:005.8[facility] OxzuxpcOAOJDSBNHW5223-73-06 02:44:004.97[facility] AGKXJHTIXN5720-49-90 02:44:000.4[facility] FztlsmqFRLDMSRNKY5401-26-79 02:44:000.7 [facility] EuuaoyeODJIQVJLXT1028-79-74 02:44:003.5[facility]annHEMATOLOGY 2017-01-25 02:44:007.1[facility] YelrylbGRHEEJSWFG4519-49-86 02:44:000.6[facility] FilchehOONYQRIVDL6510-01-57 02:44:001.8[facility] GxvkkojXNAXXESTAC4145-43-18 02:44:0059.9[facility] YyrtupyLFLSQUCTBJ3801-44-70 02:44:0031.7[facility] OROIPHK9959-88-54 09:22:00 Test Item Value Reference Range Interpretation [...] S Sulfamethoxazole (test code = 47) POCT-GLUCOSE TBPNX5505-58-36 23:15:00 Test Item Value Reference Range Interpretation Comments POC-GLUCOSE METER 227 mg/dL 70-110 H TESTED AT [address] (BEAKER) (test code [facility] [place] = 1538) [address] URINALYSIS W/ XJEVIVAHEDY5941-26-20 22:36:00 Test Item Value Reference Range Interpretation [...] 1663) SOURCE(BEAKER) (test code = 2795) KETONE, [id number] 22:32:00 Test Item Value Reference Range Interpretation Comments KETONES, BLOOD (BEAKER) (test code 0.6 mmol/L <0.4 H = 1103) BLOOD GAS, MYXJMQ5691-61-23 22:30:00 Test Item Value Reference Range Interpretation [...] (test code = 1819) 21.0 % SCREEN, MEPHV5252-03-05 22:29:00 Test Item Value Reference Range Interpretation Comments TEST URINE (BEAKER) (test Negative code = 583) TROPONIN [id number] 21:42:00 Test Item Value Reference Range Interpretation [...] CK-MB Reference Range:<5 Normal5-10 Borderline>10 AbnormalCOMPREHENSIVE METABOLIC CHFHR3326-12-63 21:34:00 Test Item Value Reference Range Interpretation [...] S NOT APPLICABLE FOR DIALYSIS PATIEN TS. [id number] 21:32:00 Test Item Value Reference Range Interpretation Comments LIPASE (BEAKER) (test code = 749) 28 U/L 6-51 CBC W/PLT COUNT & AUTO VJLYWOTJAGSX5488-63-91 20:55:00 Test Item Value Reference Range Interpretation [...] L 0.00-0.20 (test code = 417) POCT-GLUCOSE UJIEK9864-83-17 20:56:00 Test Item Value Reference Range Interpretation Comments POC-GLUCOSE METER 446 mg/dL 70-110 Notified R Diana DALTON/TESTED AT ([facility]) (test code [address] [place] = [address]) [address] [facility] [address] BEDSIDE GLUCOSE NMBNERH7679-69-63 15:13:51853Sjqzqhin HermannBEDSIDE GLUCOSE RNWXATW5004-41-40 04:18:27334Flbqdman ZyrovwfHGGYZGHPV0902-53-39 03:05:000.14 [facility] AfulignHJGXVKVFY5920-15-88 03:05:008[facility] BrptmqwTLCZFSFZU1102-48-87 03:05:000.2[facility] ZdmfrxhSMCNFQCZG5396-26-63 03:05:0027[facility] IBNHZICDF6868-11-21 03:05:0013.2[facility] GsevjyoGJYICDSSY5788-91-45 03:05:008.8 [facility] RghlotiOLFEZPAPJ6402-29-56 03:05:007.6[facility] HermannCHEMISTRY 2011-11-29 03:05:0016[facility] YesvfciLQOUYVPBV6514-97-23 03:05:003.8[facility] WdljarkCNSCWFBPQ2271-24-50 03:05:003.8[facility] EolhzeiKYSMLIDAN9091-06-57 03:05:001.0[facility] YohoyqlIAKTMPGND4014-43-46 03:05:19408Stlevyvh [place] WRMUWUCUF1270-85-21 03:05:0013[facility] EprhqboEJAWEVFGE3081-91-18 03:05:61439 [facility] GosslutNABPVSOHG1026-77-00 03:05:0098[facility] HermannCHEMISTRY 2011-11-29 03:05:000.7[facility] TbaqwgvQDWAMEWVV9998-96-57 03:05:0011[facility] HtgqsjvPRGSIKBBO4341-42-02 03:05:004.2[facility] YmilylbFWGXZEDED3368-61-32 03:05:79097Nyrrxrhb YlwxipbPKLJOVGQRZ0549-12-52 03:05:004.41[facility] ULJBCVAGUO5331-35-87 03:05:005.7[facility] PhvhzbgISYAZKUTXR6763-91-38 03:05:00 33.emorial HxowazuHUIVRMRAXD1101-18-28 03:05:0012.9[facility] HermannHEMATOLOGY 2011-11-29 03:05:0013.8[facility] UgqfmjjGUEZZRQVUB0371-29-60 03:05:0088.4[facility] TeogblaJONWEGGESY4963-38-98 03:05:00 Test Item Value Reference Range Interpretation Comments MCH (test code = MCH) 29.3 pg 27.0-31.0 N [facility] AuprclxFHDKKMRAMN9573-66-19 03:05:0038.9[facility] HermannHEMATOLOGY 2011-11-29 03:05:007.5[facility] JyvtilwAGWGGJDJGL6366-65-95 03:05:05536Bojcklfd NvwwdafNOUBVHRSQU7380-93-45 03:05:0057.5[facility] XggtubqUDQRPQNYZC1514-28-35 03:05:000.5[facility] CxafukxICUOWXDOFA5153-64-20 03:05:001.5[facility] LKHUZDZNCW6720-96-86 03:05:005.3[facility] XdilvuhXLVSRYWOZS3976-29-02 03:05:00 35.2[facility] WhtiymhUQEHIHNCSM3900-04-61 03:05:002.0[facility] HermannHEMATOLOGY 2011-11-29 03:05:003.3[facility] EkuifitEDBFMMVTZC4153-48-82 03:05:000.1[facility] EoexppxGCBUKFBHOF6399-89-07 03:05:000.3[facility] XddtfopKXHGLXQEDP7383-24-64 03:05:000.0[facility] IjurmlpFFJNNKYVST6632-04-70 03:05:00 Test Item Value Reference Range Interpretation Comments UA Spec Grav (test code = UA Spec 1.010 1 N Grav) [facility] LnanqcsJQJDCEELQG6272-03-50 03:05:00 Test Item Value Reference Range Interpretation Comments UA pH (test code = UA pH) 5.5 1 5.0-8.0 N [facility] MlbryhfDWIWIPKBXM6088-60-89 03:05:00Yellow *NA*(11/28/2011 22:05:00) [facility] YrmwkzrVOVFHYKVLK4055-82-72 03:05:00Clear (11/28/2011 22:05:00)[facility] FmdymljGJRVWOIJOI3536-55-08 03:05:00Negative (11/28/2011 22:05:00)[facility] JkeehnuXHXRWWCZWH3210-17-39 03:05:00Negative (11/28/2011 22:05:00)[facility] HvkxdqlRNCUHMIPPS7643-80-14 03:05:000.2[facility] MmncgqmRLJHDTBYKI6217-44-84 03:05:00>=1000 mg/dL *ABN*(11/28/2011 22:05:00)[facility] HermannURINALYSIS 2011-11-29 03:05:00Negative mg/dL *NA*(11/28/2011 22:05:00)[facility] BYHSCKYMKB1211-62-02 03:05:00Negative mg/dL (11/28/2011 22:05:00)[facility] VcqvmwcBCQMRUFRJN1659-80-00 03:05:00Negative (11/28/2011 22:05:00)[facility] FintissHJSJAKOMSE8550-57-78 03:05:00Negative *NA*(11/28/2011 22:05:00)[facility] PonjbjdSVGWAKFKBO9133-69-47 03:05:00Rare /LPF (11/28/2011 22:05:00)[facility] AganbraINHALGJQUM3504-01-80 03:05:00Occasional /HPF (11/28/2011 22:05:00) [facility] JrcccylGUIFOHZZRT3800-92-94 03:05:000-2 /HPF (11/28/2011 22:05:00) [facility] KsgstjdSNOWUDXMGO2828-58-97 03:05:000-2 /HPF (11/28/2011 22:05:00) [facility] YlgfekiTNBQAHYJMU2122-12-87 03:05:00Performed (11/28/2011 22:05:00) [facility]annBEDSIDE GLUCOSE PEZWLTQ5914-12-11 02:45:00>400[facility] HermannBEDSIDE GLUCOSE NNEGIVS0916-58-93 06:10:99627Rlzyyoac HermannBEDSIDE GLUCOSE UWQGDTU0037-85-05 05:04:0094[facility] MifvpbdHVRFUULXN3340-86-57 03:06:00 72[facility] RorjhavIWVHJZNAV9140-47-46 03:06:0040[facility] HermannCHEMISTRY 2011-10-25 03:06:007.42[facility] KsuxzbySZVNIDVGL8124-24-75 03:06:000.0[facility] FkggwbkYKGBHEBVN1264-55-24 03:06:00Rm Air (10/24/2011 22:06:00)[facility] UOGUDJOHJ2436-45-76 03:06:0095.0[facility] AmqemldMBHOQBSVB5400-99-89 03:06:001 [facility] KylraxsTAYHPAFLK0301-40-92 03:06:0026[facility] HermannCHEMISTRY 2011-10-25 03:05:63933Prwdtspf HlplzalSTFNBEPOL1315-02-32 03:05:76460Nfbmlbfz FzmmrcqHSTIBCWXK9355-74-14 03:05:0019[facility] WsxepfnABRLSIFEX5742-00-44 03:05:008.4[facility] PwqaubgWWLQNTHTR9164-42-96 03:05:09472Kdkbkpfk [place] YNBYJTWLS5808-69-95 03:05:71989Fembchew VdpqmbcTHIRPAWQU3239-74-81 03:05:003.8 [facility] JlkchetCRTTLQJUD3117-82-81 03:05:003.7[facility] HermannCHEMISTRY 2011-10-25 03:05:0027[facility] TepiuwyUNDXFKRHB9178-54-76 03:05:0012.2[facility] TjixljgDIGEEQLQA9707-12-73 03:05:004.2[facility] KbxwazsEOPSHYHFA8498-81-95 03:05:000.8[facility] GzqcnqcBJUNSICQL9348-66-39 03:05:61663Ufkffhou [place] SVDLSKFXN9706-99-90 03:05:0024[facility] KprzzwfFVLFJUFPC3295-92-99 03:05:007.5 [facility] VwuiprnMPRFPJDOU1173-23-40 03:05:0010[facility] HermannCHEMISTRY 2011-10-25 03:05:16591Fcuzydkz NkxdssvYPKNOBVML7492-96-18 03:05:000.3[facility] XttdabjMOPDSWUXE4535-83-73 03:05:001.0[facility] MpgjovwJGOAPAYLT0914-00-96 03:05:0017[facility] NsrhvaaECADXSJKB8818-68-61 03:05:000.22[facility] GVZSBKKSZY2552-30-26 03:05:000.1[facility] YecchdeXWAMYKMLEN9330-83-07 03:05:002.0 [facility] SzfrueeVCQVHOCSBF1223-83-86 03:05:000.0[facility] HermannHEMATOLOGY 2011-10-25 03:05:000.4[facility] AipdkzxBVPURQFFRF1399-94-29 03:05:0029.4[facility] OajwikkZMVDASZBXS9394-60-34 03:05:004.3[facility] CikdwdvPDXAQUOLWD6311-78-15 03:05:005.7[facility] OwohogqJFTCQMHTUV6119-82-93 03:05:000.4[facility] CUJEPBZJGR2916-62-25 03:05:001.2[facility] TqtllqhHWRCDYUMUP2401-37-18 03:05:00 63.3[facility] MhlvzxbXODLBOVMRN0865-67-17 03:05:0014.0[facility] HermannHEMATOLOGY 2011-10-25 03:05:22331Ghjuqere DbttmjxSBGWZBGMWD5677-28-00 03:05:008.0[facility] MgcprwtTIMGBOWEOR3924-18-79 03:05:0013.3[facility] GicdkptCRQQZQCHKZ0567-70-55 03:05:0039.4[facility] BaxiixoJMJZPGNVPK5768-98-08 03:05:0086.2[facility] QQZDPZMLVE4067-76-15 03:05:00 Test Item Value Reference Range Interpretation Comments MCH (test code = MCH) 29.1 pg 27.0-31.0 N [facility] KkntgvdOSBJCKODIL4686-57-69 03:05:0033.8[facility] HermannHEMATOLOGY 2011-10-25 03:05:006.9[facility] EqczgulPQBEXJSOTY3825-65-84 03:05:004.57[facility] MdnkmlfOMZGBEUOZF3060-01-80 03:05:00Positive *ABN*(10/24/2011 22:05:00)[facility] AawreivARHZQXFSCQ7804-09-07 03:05:00Negative (10/24/2011 22:05:00)[facility] JdepchuXYMWDXRILY2609-27-06 03:05:00Negative (10/24/2011 22:05:00)[facility] RhqsjwuCZITAEKCFD2412-95-50 03:05:00>=1000 mg/dL *ABN*(10/24/2011 22:05:00) [facility] XtewzhxPCBASTKLFS5570-04-55 03:05:00 Test Item Value Reference Range Interpretation Comments UA pH (test code = UA pH) 6.0 1 5.0-8.0 N [facility] FmzswicPXYCWMAKVJ6252-18-99 03:05:00 Test Item Value Reference Range Interpretation Comments UA Spec Grav (test code = UA Spec 1.015 1 N Grav) [facility] JsuygnsKHYEKTZZIK6602-60-13 03:05:00Yellow *NA*(10/24/2011 22:05:00) [facility] QfzawhvORLLDIJQKA8757-55-41 03:05:00Clear (10/24/2011 22:05:00)[facility] BosqbaqSSWXUSBVMX4942-10-86 03:05:000.2[facility] WdvwrthCTHXPIOHMU0891-57-67 03:05:00Negative *NA*(10/24/2011 22:05:00)[facility] TuuvwnrDMSGABXJMU5607-00-30 03:05:00Negative (10/24/2011 22:05:00)[facility] FhrioqaZINYKCXLZA3000-83-83 03:05:00Negative *NA*(10/24/2011 22:05:00)[facility] ZhykvxhKPJWTPFRVB0252-42-56 03:05:00Rare /LPF (10/24/2011 22:05:00)[facility] MptcqcgXMDMOUFAKE6067-62-91 03:05:00Moderate /HPF (10/24/2011 22:05:00)[facility] KegzagnFCGERRIRUE3822-28-94 03:05:000-2 /HPF (10/24/2011 22:05:00)[facility] SptafybZIGYTZARJC8295-88-01 03:05:00Performed (10/24/2011 22:05:00)[facility] ArtpapiRSCXONHIUN4505-74-39 03:05:006-10 /HPF *ABN*(10/24/2011 22:05:00)[facility] FrrffnfYPJGTZYIJQ9425-84-17 03:05:00Rare /LPF (10/24/2011 22:05:00)[facility] HermannBEDSIDE GLUCOSE TESTING 2011-10-25 02:43:00>400[facility] HermannBEDSIDE GLUCOSE YEUJVSY9690-61-81 08:15:30550Ouxlsiss HermannBEDSIDE GLUCOSE GVJUHYA5318-64-57 07:07:00>400 [facility] OwvwwxhTECVVXEOI3706-02-98 05:10:97204Ivdeprhv HermannCHEMISTRY 2011-05-23 05:10:000.8[facility] XvoghtmZCMKTFQZE6910-28-92 05:10:0026[facility] XjhpifdFQTDSPXUB0298-97-53 05:10:0096[facility] VavdmxpBGABRDSFF6006-06-54 05:10:003.9[facility] KjokycbAKXACASIZ1428-74-95 05:10:0012.9[facility] VJKXRDXNW0079-50-25 05:10:004.0[facility] WjfvtywSCHUMBFYA1082-33-26 05:10:007.8 [facility] NsrcpkpNVCOTJRFX6074-24-21 05:10:0015[facility] HermannCHEMISTRY 2011-05-23 05:10:41263Bnjwnnup TnyfytzUORLFKLAO3919-73-32 05:10:001.1[facility] NepkeczDMSBLNTEZ8594-15-80 05:10:003.8[facility] TxhxslmBNWEUXGZY2714-89-11 05:10:008.6[facility] LhirkcgYYXBHOHKF3978-46-10 05:10:0011[facility] RDVNKWOOH2394-86-00 05:10:000.4[facility] XyubzdqCUHYQGHKT4280-52-46 05:10:23600 [facility] UroxsatDTPKEQYIA3296-57-59 05:10:0015[facility] HermannCHEMISTRY 2011-05-23 05:10:13142Zhqsygzv CpinpntQIQVBHHEF2606-00-39 05:10:0012[facility] CmpxpvjFKZUZJMNX6222-10-30 05:10:92587Csmtijhb WwkkkhyANDCCWVNO2874-72-66 05:10:000.36[facility] HkgxqfwLHOPZXCDMQ9038-27-34 05:10:90823Blgkvpml [place] FVNPBBSBMA9861-15-49 05:10:0034.3[facility] UnwyjqvKEQUKNOJKX3576-35-88 05:10:00 7.9[facility] QfmrdywPMUJYTAMTC7449-46-93 05:10:0013.0[facility] HermannHEMATOLOGY 2011-05-23 05:10:00 Test Item Value Reference Range Interpretation Comments MCH (test code = MCH) 29.5 pg 27.0-31.0 N [facility] QeqwbtkYEDKZOGYMG2721-82-52 05:10:0038.1[facility] HermannHEMATOLOGY 2011-05-23 05:10:0086.0[facility] UfhwedpHRAXBQINVO0667-66-51 05:10:004.43[facility] KagqlzfRGKKUNBSBF2675-51-96 05:10:005.9[facility] BwtzdlrVTXPEMXNFQ0493-97-10 05:10:0014.0[facility] NnnotmiWBVJJTIRSW4515-72-68 05:10:000.0[facility] AGCWOACXKB1479-19-31 05:10:001.7[facility] WkoljqhVOSLMDMYFG0666-42-66 05:10:000.3 [facility] AsxhqweEISKIPKGGL4014-35-16 05:10:000.6[facility] HermannHEMATOLOGY 2011-05-23 05:10:003.8[facility] PpgsnmkMEKBJBBMAI0787-25-23 05:10:000.1[facility] GvakajgCCPFGWMRXT5316-73-84 05:10:004.7[facility] ClmmqbjEBPWUDQHTX1251-53-70 05:10:0028.9[facility] OdlilrsLSVJLZQGGK6905-40-13 05:10:002.5[facility] EPZAMEKRDP2531-68-83 05:10:0063.3[facility] XyfhevrWNCLJYXRXN1019-77-75 05:10:000- 2 /HPF (05/22/2011 23:10:00)[facility] CdnhcxpYADJYIYGXB2174-60-11 05:10:00 Occasional /HPF (05/22/2011 23:10:00)[facility] HwgaklsKMKOPMCZZG5275-55-29 05:10:00Negative (05/22/2011 23:10:00)[facility] NvbnpxdNGWBHQQUOP6349-01-14 05:10:00Negative *NA*(05/22/2011 23:10:00)[facility] NphkekaAFSEXMVUHQ5001-98-00 05:10:00>=1000 mg/dL *ABN*(05/22/2011 23:10:00)[facility] HermannURINALYSIS 2011-05-23 05:10:00Negative (05/22/2011 23:10:00)[facility] HermannURINALYSIS 2011-05-23 05:10:00 Test Item Value Reference Range Interpretation Comments UA pH (test code = UA pH) 5.0 1 5.0-8.0 N [facility] SokikpxTCJAIEWSCK1272-07-39 05:10:003-5 /HPF (05/22/2011 23:10:00) [facility] ClnglonGDGELVZYHV7653-24-02 05:10:00Rare /LPF (05/22/2011 23:10:00) [facility] UtkrvupEHQYCZOLWI1012-50-08 05:10:000.2[facility] HermannURINALYSIS 2011-05-23 05:10:00Negative (05/22/2011 23:10:00)[facility]annURINALYSIS 2011-05-23 05:10:00Negative *NA*(05/22/2011 23:10:00)[facility] HermannURINALYSIS 2011-05-23 05:10:00Negative (05/22/2011 23:10:00)[facility] HermannURINALYSIS 2011-05-23 05:10:00Performed (05/22/2011 23:10:00)[facility] HermannURINALYSIS 2011-05-23 05:10:00Yellow *NA*(05/22/2011 23:10:00)[facility] HermannURINALYSIS 2011-05-23 05:10:00Clear (05/22/2011 23:10:00)[facility] HermannURINALYSIS 2011-05-08 00:16:00Negative (05/07/2011 18:16:00)[facility] HermannURINALYSIS 2011-05-08 00:16:000.2[facility] PptlxhaCMBOQKEJMD9227-35-89 00:16:00Negative *NA*(05/07/2011 18:16:00)[facility] FnkeonhBLIOSFPNES7578-46-77 00:16:00Large *ABN*(05/07/2011 18:16:00)[facility] YnyjricYQLJKPOCVX9132-98-68 00:16:006-10 /HPF *ABN*(05/07/2011 18:16:00)[facility] OvejamqEAUOCIDUSF7610-27-85 00:16:00 Occasional /HPF (05/07/2011 18:16:00)[facility] BtjuhxbGGJDVBBOUF7851-70-48 00:16:00Performed (05/07/2011 18:16:00)[facility] AdiznxsQYCHYYHLXU7077-47-08 00:16:00Few /LPF (05/07/2011 18:16:00)[facility] PgzkzvaFPMNIGICUU5622-51-57 00:16:00Negative (05/07/2011 18:16:00)[facility] ZbyjqurDXPNQSFOGH9182-31-03 00:16:0021-50 /HPF *ABN*(05/07/2011 18:16:00)[facility]-08 00:16:00Trace *ABN*(05/07/2011 18:16:00)[facility] 2011-05-08 00:16:00>=1000 mg/dL *ABN*(05/07/2011 18:16:00)[facility] AGFDHOKCRM5809-36-82 00:16:00Negative (05/07/2011 18:16:00)[facility] LASCENPDQZ3195-56-98 00:16:00 Test Item Value Reference Range Interpretation Comments UA Spec Grav (test code = UA Spec 1.010 1 N Grav) [facility] RotscwvNYINSUBZNO7962-22-47 00:16:00Clear (05/07/2011 18:16:00)[facility] LpiafgwFEAMUEAKDX1341-79-70 00:16:00 Test Item Value Reference Range Interpretation Comments UA pH (test code = UA pH) 6.0 1 5.0-8.0 N [facility] MtnjpmuUCUJOXBFWH0290-07-94 00:16:00Yellow *NA*(05/07/2011 18:16:00) [facility] BQWJZRD4635-98-44 06:51:85568Hdkqtrzj [facility] LUWQBBFUG9291-33-90 04:20:00Negative (04/19/2011 22:20:00)[facility] [place] XFRQDRACX2864-74-34 04:20:004.1[facility] FlnnddjNRANGONEV5209-06-85 04:20:0015 [facility] TpcfzmoMOFSUUPPV9004-14-82 04:20:009.2[facility] HermannCHEMISTRY 2011-04-20 04:20:0096[facility] WkbkesiZIPGZDQLJ3062-67-03 04:20:0016.2[facility] QwhezpcVGBBFUNZZ5570-00-85 04:20:0024[facility] IglsszdTXYBZCXTA4145-92-01 04:20:004.0[facility] BxtexhoXNSIICZFR9399-73-11 04:20:008.1[facility] OUETJKPVU3394-53-54 04:20:000.4[facility] QbadhumFWQUAWRBV0312-43-15 04:20:0092 [facility] BxesmibBTDUKAIJQ8311-00-77 04:20:004[facility] GlmkzeeONCFRJVLY0366-36-49 04:20:0014[facility] BfqdwgdRLSIFAATL9523-53-73 04:20:001.0[facility] FDFQWTNUM7367-44-44 04:20:55623Uvsdzvvw HrhbsyzZPROCIHNL0380-65-15 04:20:000.8 [facility] GbeskzaZUDMOVMDT3807-43-90 04:20:0012[facility] HermannCHEMISTRY 2011-04-20 04:20:004.2[facility] WatvredUJFUYCOHN0034-85-60 04:20:46511Vffbstbj JgrmfrdBSIOPTEQY4097-67-03 04:20:98201Rjwifbft AhlnxdrNIRHPDIAO7227-37-22 04:20:0070[facility] SwtuwfoCLYVYALCUY9942-73-75 04:20:007.9[facility] MMJBDQMRHF5054-26-36 04:20:79309Vilzznew YqtnwsgRAWIJRGZIT6720-64-24 04:20:00 4.54[facility] HvgpkdzMDZBJNHNLO0865-98-12 04:20:0013.3[facility] HermannHEMATOLOGY 2011-04-20 04:20:00 Test Item Value Reference Range Interpretation Comments MCH (test code = MCH) 29.3 pg 27.0-31.0 N [facility] KvzgrwbRCYQWJCXYM2018-21-04 04:20:0033.9[facility] HermannHEMATOLOGY 2011-04-20 04:20:0014.0[facility] ItosipqTFXXMTZRSQ1820-87-92 04:20:0039.3[facility] RjwkevuYLZVPKOAUJ3555-65-87 04:20:0086.5[facility] NobqaqoWANRXEWINY8984-29-72 04:20:008.6[facility] RypfgmfGTQFUOEVXX4520-72-61 04:20:000.1[facility] EBPOIIVLQZ6878-90-71 04:20:000.1[facility] TpaeqbqADFAGXGBMU0330-51-40 04:20:000.9 [facility] SyjbqkaJLVUHJLHWC5485-01-65 04:20:0019.9[facility]annHEMATOLOGY 2011-04-20 04:20:005.4[facility] GhxtfpbFFPRPUMVFP8575-82-98 04:20:0073.1[facility] OqwnvdeYMXJZJSUAK7633-12-14 04:20:001.7[facility] YigdyiuWNZNEOVIZR2998-72-84 04:20:000.5[facility] XqicgieJAUBMBGMZF3448-84-69 04:20:000.7[facility] GBIBLUXSDI2897-74-00 04:20:006.3[facility] GxvspfhXAPIPCQDEE0346-21-66 02:29:00 Negative *NA*(04/19/2011 20:29:00)[facility] YxpqyyvMILBWSMXIM1321-47-22 02:29:00 Negative *NA*(04/19/2011 20:29:00)[facility] CydxiuaMXAZJKHOTN5415-05-42 02:29:00 Negative (04/19/2011 20:29:00)[facility] OggyumeTMWAARZJWJ5105-60-34 02:29:00 Negative (04/19/2011 20:29:00)[facility] VhjsakfJTKTGPRVJV4673-51-24 02:29:00 Test Item Value Reference Range Interpretation Comments UA pH (test code = UA pH) 6.0 1 5.0-8.0 N [facility] LpwbghaLLFSHNWXIV3610-90-73 02:29:00>=1000 mg/dL *ABN*(04/19/2011 20:29:00)[facility] MdkhkeaDQDGLFBAJE7666-68-97 02:29:00Performed (04/19/2011 20:29:00)[facility] NvdyytyINTFPBSZZM2964-15-12 02:29:00Negative (04/19/2011 20:29:00)[facility] HhhioyjAUASQBFHLY6516-79-22 02:29:000.2[facility] SKMCMQSBJB5430-74-42 02:29:00Negative (04/19/2011 20:29:00)[facility] MMKRATMLGM8603-65-94 02:29:00Occasional /HPF (04/19/2011 20:29:00)[facility] EinvijgHJTNPEZAFY0836-96-45 02:29:00Occasional /LPF (04/19/2011 20:29:00) [facility] UemyrqbHRLCOFLSPR2671-53-25 02:29:003-5 /HPF (04/19/2011 20:29:00) [facility] QeqxfjhPIETSOKSGE0126-90-74 02:29:000-2 /HPF (04/19/2011 20:29:00) [facility] NzgpufoPUQHNPYIKR6694-81-20 02:29:00Clear (04/19/2011 20:29:00)[facility] DqjrkhgBTHQESJBVS0025-85-46 02:29:00Yellow *NA*(04/19/2011 20:29:00)[facility] HermannBEDSIDE GLUCOSE VJPHEAM8655-33-53 05:47:33632Wtzznmca HermannCHEMISTRY 2011-03-26 02:45:00<3[facility] CrwolooCAMXYBBTR0913-01-59 02:45:009.2[facility] SmursoeDBYIAJIXW1872-52-07 02:45:0014.0[facility] GylflqhYGHKRMYOR4184-67-51 02:45:0025[facility] MamhrfwUBYFFRJZT4746-03-34 02:45:0097[facility] ROENRFYDD7103-75-79 02:45:004.0[facility] NdgukrbIFGTUDBTI0344-09-90 02:45:000.7 [facility] VgtiijqKAAPZUDQI2293-33-82 02:45:49290Ohduttdn HermannCHEMISTRY 2011-03-26 02:45:000.5[facility] YlpsfamWUEKXPISL0788-33-02 02:45:0069[facility] GtgdqhaADEFGBRHO6859-66-78 02:45:0014[facility] VmzmmolSZOLTOTTV3375-55-00 02:45:003.9[facility] VxymtstNFBPBDTBK1398-95-44 02:45:007.8[facility] HLDDBZHMU9131-34-77 02:45:0019[facility] OoguvakYXPICHJQB6807-79-65 02:45:001.0 [facility] KfjhopiGHRGWJIYE3074-18-05 02:45:003.9[facility] HermannCHEMISTRY 2011-03-26 02:45:0013[facility] QnduaxoABWHEJYOQ1010-39-77 02:45:03600Hobhkphx TkbdaizSTTPLALON7782-56-31 02:45:19748Vmfvsyca QonikgfPTTGBYINRT1486-98-57 02:45:0012.7[facility] TjnkwcdUZTYJUWNRF2945-18-40 02:45:0014.0[facility] XSEAICPFXV0936-14-70 02:45:0036.9[facility] AfrwitdUQZNNSRXQQ5247-01-32 02:45:00 85.5[facility] PnlqxeoCOSYIEUONI2964-03-51 02:45:00 Test Item Value Reference Range Interpretation Comments MCH (test code = MCH) 29.5 pg 27.0-31.0 N [facility] VktqgpzMYARDTAOQI4114-36-04 02:45:0034.5[facility] HermannHEMATOLOGY 2011-03-26 02:45:65336Mddbbuop ZqgvgroSTXMYTUSVT3576-67-03 02:45:008.2[facility] UyafnziAWUPJYUVLO0108-54-28 02:45:006.9[facility] AnuxvaoTLTEALGDRN0665-54-04 02:45:004.32[facility] TcedsfvCSTJDNYTOG3591-59-58 02:45:000.5[facility] SDZCDHXFFB3593-23-53 02:45:004.6[facility] LnczyfiAHAQKXIBLA7902-00-32 02:45:001.9 [facility] FnetpdlVYVZUOHITN5891-80-14 02:45:000.3[facility] HermannHEMATOLOGY 2011-03-26 02:45:000.1[facility] OyxblalHEZJEBGIOC4923-59-47 02:45:000.0[facility] IligeueHZIFINNUQC4640-57-86 02:45:0027.2[facility] XuxwflkUSUSQOQHJF8465-31-28 02:45:0066.3[facility] MjqqrtvNVWSLNUDXE3955-74-35 02:45:004.8[facility] PMFWLBGBAA4567-41-12 02:45:001.2[facility] PrekqfbOBGNZPDDDD3609-76-35 02:00:00 Occasional /HPF (03/25/2011 20:00:00)[facility] RuksrbmPVCMPWZZTA8703-59-15 02:00:00Occasional /HPF *ABN*(03/25/2011 20:00:00)[facility] HermannURINALYSIS 2011-03-26 02:00:00Rare /LPF (03/25/2011 20:00:00)[facility] HermannURINALYSIS 2011-03-26 02:00:000-2 /HPF (03/25/2011 20:00:00)[facility] HermannURINALYSIS 2011-03-26 02:00:000-2 /HPF (03/25/2011 20:00:00)[facility] HermannURINALYSIS 2011-03-26 02:00:00Negative (03/25/2011 20:00:00)[facility] HermannURINALYSIS 2011-03-26 02:00:00Performed (03/25/2011 20:00:00)[facility] HermannURINALYSIS 2011-03-26 02:00:00Negative (03/25/2011 20:00:00)[facility] HermannURINALYSIS 2011-03-26 02:00:00Negative (03/25/2011 20:00:00)[facility] HermannURINALYSIS 2011-03-26 02:00:000.2[facility] MgjjjstEMLTSPLJHH3837-37-86 02:00:00Yellow *NA*(03/25/2011 20:00:00)[facility] PweldyxVWEUPBUIGA3293-95-09 02:00:00Clear (03/25/2011 20:00:00)[facility] DuczqohBJRJMNBQXW6748-97-45 02:00:00Negative *NA*(03/25/2011 20:00:00)[facility] AzspnvoNRCNTQLBRS6473-40-06 02:00:00>=1000 mg/dL *ABN*(03/25/2011 20:00:00)[facility] FaesfisMCMSWMLWSQ0333-08-22 02:00:00 Negative *NA*(03/25/2011 20:00:00)[facility] RfqaqbvTILWWUEBZV0198-18-70 02:00:00 Test Item Value Reference Range Interpretation Comments UA pH (test code = UA pH) 6.0 1 5.0-8.0 N [facility] QyjcfuxQJXFHADWNM8813-89-76 02:00:00Negative (03/25/2011 20:00:00) [facility] HermannBEDSIDE GLUCOSE NQNMSFP0747-76-24 16:26:41579.0[facility] YUSIGKPLT3740-04-29 15:30:00<0.6[facility] NrezjzkQYEWTTCZA6709-05-72 15:30:00 <0.5[facility] HuqlsylJUWAHQSQS0751-14-50 15:30:0077.0[facility] HermannCHEMISTRY 2011-02-11 15:30:0077.0[facility] YvjpdiiPISJDKNSM0771-20-60 15:30:00<0.02 [place] [facility] AONMJGK0570-44-52 12:00:72699.0[facility] GFYNTSHUN7587-82-20 09:29:001.5[facility] DahrhqfKPQJZPLUF3658-96-63 09:29:58762.0 [facility] LjsqodhKQUIIYTGO3775-57-54 09:29:0011.0[facility]annCHEMISTRY 2011-02-11 09:29:007.8[facility] ZpwckyvREGJEPRSX9253-64-92 09:29:0013.7[facility] SmpbftjIZVLDUGRI0628-83-33 09:29:000.6[facility] StdcyqzNKRZJEKBL1921-52-88 09:29:35321.0[facility] WkambkyOPLHUPACQ0949-68-59 09:29:003.7[facility] VYNMKELDI7697-41-69 09:29:30153.0[facility] EueocjsPUYMHQCAK1201-53-42 09:29:00 24.0[facility] VlvcjgvIZLMHEHZN1900-83-47 09:29:00<0.02[facility] FWOEPXVSJ0489-69-75 09:29:0071.0[facility] HsdyglxZGYYNFTVA1465-56-54 09:29:0071.0 [facility] CjckwgwMOSKDKIQIU7855-21-55 09:29:007.8[facility]annHEMATOLOGY 2011-02-11 09:29:0014.1[facility] VxyxstkBHUXELCVGC0952-87-75 09:29:006.8[facility] LojoysdQTRVLZTMZD5812-28-15 09:29:0011.8[facility] BewogoaVYYDGSDIBV2390-60-05 09:29:004.11[facility] UejgjxsOBXNXHSQWP8474-96-96 09:29:0035.3[facility] BRQKOCVZQK1739-58-44 09:29:00 Test Item Value Reference Range Interpretation Comments MCH (test code = MCH) 28.7 pg 27.0-31.0 N [facility] PlexucuUXWVUVISWV7617-76-94 09:29:0085.7[facility]annHEMATOLOGY 2011-02-11 09:29:49156.0[facility] VcxfoivMSLKCXHQCH7728-85-14 09:29:0033.5 [facility] RscabsnLFODILLQTQ6264-24-45 09:29:0026.3[facility]annHEMATOLOGY 2011-02-11 09:29:0065.8[facility] ObdstanBIHQYABZYH2947-04-18 09:29:006.1[facility] BnydmatLGYHMMHGJB1424-46-76 09:29:001.2[facility] ZmzejbeDQVLMAPQKJ9980-23-46 09:29:000.6[facility] OpaznrtYOBUUIHQOB4912-92-90 09:29:004.5[facility] ZUDMKAAEOK6152-39-37 09:29:001.8[facility] IkegrnyEMGHPDHKKS2038-00-78 09:29:000.4 [facility] ZzkdsfrCCKXTKYDOV2362-69-08 09:29:000.0[facility]annHEMATOLOGY 2011-02-11 09:29:000.1[facility]annBEDSIDE GLUCOSE XLTBAZO5483-64-88 05:34:00 151.0[facility] NyzfzsoYEYGZDQGPQ5644-98-33 03:26:00>=1000 mg/dL *ABN*(02/10/2011 22:26:00) ??[facility] WtiilcpRZCPXROEEW1905-50-76 03:26:00 Negative mg/dL *NA*(02/10/2011 22:26:00) [facility]TkugaddHCWDAVKYIB8337-88-31 03:26:00 Test Item Value Reference Range Interpretation Comments UA pH (test code = UA pH) 6.5 1 5.0-8.0 N [facility] HospitalKklvdtzOFIUPMKCKT6947-16-09 03:26:00Negative mg/dL (02/10/2011 22:26:00) ??[facility] HospitalCchmdghESFWRNKNFO0959-23-09 03:26:00Negative (02/10/2011 22:26:00) ??[facility] HospitalYygcihnSQOCNFVXKC3610-60-69 03:26:00Negative (02/10/2011 22:26:00) ??[facility] HospitalJbhtkipSBPSYLSOBJ3297-05-38 03:26:000.2[facility] UVXBHAATJG5428-37-90 03:26:00Negative (02/10/2011 22:26:00) ??[facility] RWDMEHKIJE7801-24-96 03:26:00Negative *NA*(02/10/2011 22:26:00) ??[facility] HospitalKpgvdbbVUXXUUGZGC7721-45-90 03:26:00Clear (02/10/2011 22:26:00) ??[facility] HospitalCveeylmFCFRBDZHRJ2422-29-71 03:26:00 Test Item Value Reference Range Interpretation Comments UA Spec Grav (test code = UA Spec 1.01 1 N Grav) [facility] HospitalMmufbnnQBOQXQIOCJ0413-65-27 03:26:00Yellow *NA*(02/10/2011 22:26:00) ?? [facility] HospitalIplgjziWYNQITDYAG8174-26-13 03:26:000-2 /HPF (02/10/2011 22:26:00) ?? [facility] HospitalDiihzqwXUCASUAAUM3133-37-04 03:26:006-10 /HPF *ABN*(02/10/2011 22:26:00) ??[facility] HospitalYntskedFMYXVOCXKJ1175-59-78 03:26:00Few /LPF (02/10/2011 22:26:00) ??[facility] HospitalQfnhaeqNEBFXPEXRR6021-99-43 03:26:00Few /HPF (02/10/2011 22:26:00) ??[facility] GedbbcvEJNXGRJOHZ6509-59-71 03:26:00Occasional /HPF *ABN*(02/10/2011 22:26:00) ??[facility] UnexqocQLSQXHSWPI7243-11-96 03:26:00 Performed (02/10/2011 22:26:00) ??[facility] AtkddewKFFDVWJRI5679-21-78 03:03:00 Negative *NA*(02/10/2011 22:03:00) ??[facility] WxpzuyhBPYUGKIAY2592-07-61 03:03:00<0.5[facility] KrdidvwZGFDMEJFW9036-53-35 03:03:00<0.02[facility] OennzroDAOREOUVI1605-01-24 03:03:007.0[facility] QntnrpmXHDEWMMDS2993-74-12 03:03:004.0[facility] IwbmdogYFYIVZPOP8094-05-82 03:03:007.5[facility] CFLCEWAIM3481-63-95 03:03:00 Test Item Value Reference Range Interpretation Comments A/G Ratio (test code = A/G Ratio) 1.1 1 0.7-1.6 N [facility] YtsawgrGLIOMAMJH1127-64-01 03:03:003.5[facility]annCHEMISTRY 2011-02-11 03:03:0014.0[facility] JhgfxzdFVSQOBGJN7271-24-26 03:03:000.3[facility] MezeoycCIAEWGRCA1131-36-41 03:03:0069.0[facility] KvuvqtrCUDHEEMPB8459-83-01 03:03:0022.0[facility] VmdxeatPKMXMUGBK0255-88-32 03:03:00 Test Item Value Reference Range Interpretation Comments B/C Ratio (test code = B/C Ratio) 20.0 1 6-25 N [facility] JsqoqcjLSFHGVMBN4837-29-09 03:03:0096.0[facility]annCHEMISTRY 2011-02-11 03:03:008.7[facility] LgtwbhhQNUZSSGEN0527-28-08 03:03:0017.3[facility] YfhusgoNDGXRYOQF0140-09-25 03:03:51813.0[facility] OikudivTIIEXDOIH4040-55-68 03:03:87721.0[facility] SijuzchDUORNJJYM5935-60-06 03:03:000.6[facility] UQSJBJWSF6089-79-42 03:03:0012.0[facility] LdfkhgkLOSRBJGYB6437-86-49 03:03:004.3 [facility] QxlqbruBLDSUQYTT5437-96-92 03:03:00Negative (02/10/2011 22:03:00) ?? [facility] OhbprbuWBDYAXNIAD9990-57-78 03:03:003.9[facility]annHEMATOLOGY 2011-02-11 03:03:002.0[facility] WwsmuqsPMPGIYZWDJ0486-55-23 03:03:000.5[facility] BfdqjmvVAYLIXNTAF6872-70-32 03:03:000.4[facility] QsqfslwQZSVXOVXYX6937-88-38 03:03:000.1[facility] BznubbuENGYZNKHIX2123-56-03 03:03:0060.9[facility] PCLTPWCEDW8266-47-93 03:03:0031.7[facility] NhpjkckHLWYPNWMUI2238-42-76 03:03:00 1.2[facility] NxojjdmXIVEAEKBEO2107-67-39 03:03:005.7[facility]annHEMATOLOGY 2011-02-11 03:03:000.0[facility] KlvulrwOGMMXXZLJN3102-15-74 03:03:00 Test Item Value Reference Range Interpretation Comments PT (test code = PT) 13.9 s 12.0-14.7 N [facility] FitptwmKTVRPSZJUT9868-06-60 03:03:00 Test Item Value Reference Range Interpretation Comments PTT (test code = PTT) 28.4 s 22.9-35.8 N [facility] HdklspeSECIPSYOUR7943-23-06 03:03:00 Test Item Value Reference Range Interpretation Comments INR (test code = INR) 1.07 1 0.85-1.17 N [facility] ZwhnvmiIHMDCJDMHF2719-76-06 03:03:0033.7[facility]annHEMATOLOGY 2011-02-11 03:03:0014.3[facility] GvgyjrhIDTCWBHQSB0385-89-81 03:03:94949.0 [facility] AtfxrrqUTPJANFSXU3080-17-42 03:03:007.9[facility]annHEMATOLOGY 2011-02-11 03:03:0085.9[facility] RdxgbvjMDAEGYBGQV3966-41-15 03:03:004.43[facility] CvqfflbVLELHEQVWE7550-38-27 03:03:0038.1[facility] RvegwyqCMPODSYIMQ7818-09-23 03:03:0012.8[facility] TdaypzuQNHVLFJBVI1734-69-68 03:03:00 Test Item Value Reference Range Interpretation Comments MCH (test code = MCH) 28.9 pg 27.0-31.0 N [facility] CaleolcUKVGZYPWLF1654-32-79 03:03:006.5[facility]annHEMATOLOGY 2011-02-11 03:03:001.1[facility]annBEDSIDE GLUCOSE MXAKTLA5509-51-34 16:39:00 175.0[facility]annBEDSIDE GLUCOSE HVEIMEP4601-53-46 12:16:0088.0[facility]annBEDSIDE GLUCOSE CLDZXUT0641-71-85 11:27:0070.0[facility]annCHEMISTRY 2011-01-15 10:45:00<0.6[facility] MoesyhkVZKNUIPUR2537-52-05 10:45:00<0.5 [facility] MvryitbVDHXHEPKK2160-23-38 10:45:00<0.02[facility]annCHEMISTRY 2011-01-15 10:45:0088.0[facility] NcqkgzaZTRHPBHRF3113-69-73 10:45:000.6[facility] EfymmsqUMCPFPRRO7884-24-92 10:45:003.4[facility] UyuquriLDUVWYMNV3877-99-02 10:45:67046.0[facility] XtktnspNANQHVCNZ1633-19-13 10:45:0013.0[facility] UNAQZFNDK8272-78-19 10:45:0025.0[facility] AsaijmqWFBUDYKSU7175-99-75 10:45:008.0 [facility] GquwpqoTDIQFGTMR0682-71-85 10:45:0018.4[facility]annCHEMISTRY 2011-01-15 10:45:84583.0[facility] RovzatyEISCUVJDB9193-10-05 10:45:27157.0 [facility] VjtxmihPWXGNOWEH9173-60-48 10:45:0096.0[facility]annCHEMISTRY 2011-01-15 10:45:00 Test Item Value Reference Range Interpretation Comments CHD Risk (test code = CHD Risk) 3.8 1 3.90-5.80 L [facility] DevagglTFBKFUULK8100-10-19 10:45:0045.0[facility]annCHEMISTRY 2011-01-15 10:45:74973.0[facility] IpqgficEOBDWHNRW8592-35-62 10:45:18107.0 [facility] BqwniytRYRXIEIFM4934-62-58 01:43:00<0.5[facility]annCHEMISTRY 2011-01-15 01:43:00<0.6[facility] CqeykdxRNOOMHQTG1463-91-62 01:43:0083.0 [facility] UeowcbxYMXLKNLCO1322-19-09 01:43:00<0.02[facility]annCHEMISTRY 2011-01-14 21:36:00Negative (01/14/2011 16:36:00) ??[facility]annCHEMISTRY 2011-01-14 20:36:00<0.6[facility] WswuebbYYXZPFLCL6076-20-15 20:36:0013.0 [facility] WtzjoiwVVRHWZFTH1213-23-37 20:36:00<3.0[facility]annCHEMISTRY 2011-01-14 20:36:000.5[facility] NpipbwuPHTRKLZMU8492-13-57 20:36:003.8[facility] FwzkcppGYEMXSFCP2290-01-21 20:36:0017.0[facility] ZsvtkwdCYMUTHIWR3244-92-94 20:36:0071.0[facility] KokurokIEARVGASV1419-50-43 20:36:003.8[facility] CWOPVMJRN0565-08-46 20:36:19353.0[facility] CntbcttDAQTPEPBK3227-75-23 20:36:00 22.0[facility] KvpkpcxOJNNSJGSB1249-05-21 20:36:0014.8[facility]annCHEMISTRY 2011-01-14 20:36:008.6[facility] VmzbgbxCBZTRCLUZ3006-47-07 20:36:70924.0[facility] CmzutihGFQLSHZSA4431-69-81 20:36:003.6[facility] DlnynhqWTMVTXUDB8008-83-86 20:36:00 Test Item Value Reference Range Interpretation Comments A/G Ratio (test code = A/G Ratio) 1.1 1 0.7-1.6 N [facility] YibakspQMAMPAMNJ6406-45-66 20:36:00 Test Item Value Reference Range Interpretation Comments B/C Ratio (test code = B/C Ratio) 11.0 1 6-25 N [facility] UzfwjfqREJPWIKHH3012-90-07 20:36:007.4[facility]annCHEMISTRY 2011-01-14 20:36:90351.0[facility] OhppfxuUVWVERELQ2031-25-82 20:36:009.0[facility] FyavjxwROAWKLAWA6987-29-66 20:36:000.8[facility] GcpjmjvVSFBSMJZV6618-28-62 20:36:00<0.02[facility] JqeyuqzDKJBCFOSV4337-83-67 20:36:00<0.5[facility] LdxwvghUDXBOXUOV8194-14-53 20:36:0078.0[facility] TimynqnSGSKMKLZOV6041-79-51 20:36:000.3[facility] UmqkanbXVLSKQFTJV1976-96-79 20:36:001.7[facility] IRCIIVIJUO8102-20-98 20:36:003.5[facility] HcxiwndLALOYBHHRJ9475-11-20 20:36:000.9 [facility] MukfbtdCPVFADRHDK9762-32-75 20:36:000.9[facility]annHEMATOLOGY 2011-01-14 20:36:000.0[facility] DtoomecULYTIGZFEG8557-26-06 20:36:000.1[facility] TcszemdYFYNEAJXDY7673-36-35 20:36:0030.7[facility] QfkcjrbGQQMLSFAPQ4460-21-18 20:36:0063.0[facility] FxhsxhlPNAUNZQMAW4303-68-00 20:36:004.5[facility] KMQPDNYJBW5848-33-99 20:36:0014.6[facility] QaxctabTFWNUZCDMT8388-28-79 20:36:00 34.0[facility] WooqzxkPNJCLFMSAO1006-87-79 20:36:008.0[facility]annHEMATOLOGY 2011-01-14 20:36:65601.0[facility] XblknysGDKKUPFDXG4756-33-06 20:36:00 Test Item Value Reference Range Interpretation Comments MCH (test code = MCH) 28.8 pg 27.0-31.0 [address] [facility] HospitalRwgsxonYCWZGLPYTW0024-18-85 20:36:0013.2[facility]annHEMATOLOGY 2011-01-14 20:36:004.6[facility] CvwkysjKXAEQCINDN6604-89-40 20:36:0038.9[facility] ScxpnocLNYMMNMPAA4924-39-72 20:36:0084.6[facility] VfnjmmiFZWZDTBPOL5057-16-70 20:36:005.6[facility] TkdlogxLJZFQSGIIT4696-34-65 20:36:00 Test Item Value Reference Range Interpretation Comments PT (test code = PT) 13.6 s 12.0-14.7 N [facility] HospitalIoixmsgCTMIDLJDPG7241-80-97 20:36:00 Test Item Value Reference Range Interpretation Comments PTT (test code = PTT) 30.2 s 22.9-35.8 N [facility] HospitalCzqlvzgZFDWXLDECM5575-76-87 20:36:00 Test Item Value Reference Range Interpretation Comments INR (test code = INR) 1.04 1 0.85-1.17 N [facility] HospitalYgfahozRVHTOICQDX6965-12-79 20:36:001.5[facility]
[2020-05-24 04:01] LABS: Absolute Lymphocytes (CBC) 2.7 K/uL (0.7-4.9); Basophils % 0.7 % (0-1.3); Hematocrit 21.4 % (36.0-45.0); Lymphocytes % 30.8 % (15.3-44.8); MPV 7.2 fL (7.6-11.3); RBC Red Blood Cell Count 2.66 M/uL (3.86-4.86)
[2020-05-24 04:14] LABS: Protime INR 1.05
[2020-05-24 04:33] LABS: Potassium 4.9 mmol/L (3.5-5.1)
[2020-05-24] MEDS: VANCOMYCIN/NS 1 gm 1 GM/250 ML BAG IVPB SCH (08:20)
[2020-05-24] MEDS: GABAPENTIN 300 MG CAP PO SCH ×2 (08:21→20:48)
[2020-05-24] MEDS: INSULIN GLARGINE 100 UNITS/ML SQ SCH (08:21)
[2020-05-24] MEDS: PIPER/TAZO/NS 3.375gm 3.375 GM/100 ML BAG IVPB SCH ×2 (10:21→16:23)
[2020-05-24] MEDS: MORPHINE 2 MG/ML SYR IV PRN ×2 (11:28→17:32)
[2020-05-24 11:34] LABS: Basophils % 0.8 % (0-1.3); Hematocrit 24.2 % (36.0-45.0); Lymphocytes % 23.4 % (15.3-44.8); MPV 7.4 fL (7.6-11.3); RBC Red Blood Cell Count 2.97 M/uL (3.86-4.86)
[2020-05-24] MEDS: ONDANSETRON 4 MG/2 ML VIAL IV PRN ×2 (11:39→17:31)
--- NOTE | 2020-05-24 11:57 | EKG ---
Test Date: 2020-05-23 Test Time: 08:48:51 Computer Artist: TIM MEASUREMENT RESULTS: Intervals: Rate: 107 CT: 148 QRSD: 70 QT: 344 QTc: 459 [place]: P: 53 CT: 148 QRS: 60 T: 62 INTERPRETIVE STATEMENTS: Sinus tachycardia Otherwise normal ECG Compared to ECG 04/23/2020 22:05:18 No significant changes Electronically Signed On 05-24-20 11:54:07 [employer]ORE WAREHOUSE ASSOCIATE by Rogerio Smith
[2020-05-24 13:45] LABS: Folic Acid, (Folate) > 20.0 ng/mL (3.1-17.5)
--- NOTE | 2020-05-24 17:39 | CON ---
History Of Present Illness: This is a 54-year-old female. I was consulted for right foot cellulitis and Charcot foot. The patient has incidental finding of COVID-19 earlier this month without any res piratory symptoms or upper respiratory tract infection. The patient claims that she might have falle n a couple of times prior to admission, which caused her to have severe discomfort to the right foot. The patient also has significant longstanding history of diabetes mellitus since 2001, currently be ing treated with insulin. The patient is also getting vancomycin and Zosyn for cellulitis, which has improved significantly. She had an x-ray of the right foot, showed the patient has dislocation invo lving the first and second MTP joints, cortical irregularities involving the medial cuneiform bone wh ich may indicate fracture. There probably is a subtle dislocation of third proximal metatarsal, wide brannon of the calcaneal cuboid joint probably secondary to ligamentous disruption. Chest x-ray done al so on yesterday shows no acute infiltrate. Past Medical History: Diabetes mellitus of about 20 years, peripheral neuropathy, recent COVID-19 pn eumonia, COVID-19 infection. Past Surgical History: , appendectomy, cholecystectomy. Social History: Nonsmoker, nondrinker. Family History: Noncontributory. Medications: The patient is currently on vancomycin and Zosyn. See MAR for other medication. Allergies: CODEINE, TRAMADOL, METHYLPHENIDATE. Review of Systems: A 10-point review was performed. Physical Examination: General: This is a 54-year-old female, lying in bed, not in any acute cardiopulmonary distress, not on any oxygen. Vital Signs: Temperature 97, pulse 104, respirations 18, blood pressure 139/70. HEENT: Unremarkable. Neck: Supple. Lungs: Clear to auscultation. Heart: S1, S2. Regular. Abdomen: Soft, nontender. Bowel sounds present. Extremities: Right foot tenderness, erythematous changes, and discomfort noted mostly in foot and an kle region. Diagnostic Studies: X-ray showing multiple dislocations involving first and second MTP joints and cu neiform bone indicates fracture, dislocation of third proximal metatarsal, and widening of calcaneal cuboid joint. Assessment And Plan: Cellulitis of right foot and possible Charcot foot to the right foot also secon neela to longstanding diabetes mellitus, neuropathy, pain. Continue IV antibiotic, can be switched to oral antibiotic on discharge, total course of antibiotic 14 days. Consider doing Levaquin and doxyc ycline. Recommend to have orthopedic or football scout. Follow the patient as an outpatient once t he patient is out of COVID after quarantine of 20 days. Keep leg elevated when possible. Offloading of the foot should assist and we will follow the patient as needed. Thank you Dr. Beach for consult. NF/DAVE Voice ID: [id number] Report ID: [id number]
[2020-05-24] MEDS: QUETIAPINE 100MG TAB PO SCH (20:48)
[2020-05-25] MEDS: PIPER/TAZO/NS 3.375gm 3.375 GM/100 ML BAG IVPB SCH ×3 (00:55→17:22)
[2020-05-25] MEDS: NA CHLORIDE 0.9% 1,000 ML IV SCH ×2 (03:26→17:20)
[2020-05-25] MEDS: VANCOMYCIN/NS 1 gm 1 GM/250 ML BAG IVPB SCH (08:35)
[2020-05-25] MEDS: INSULIN GLARGINE 100 UNITS/ML SQ SCH (08:39)
[2020-05-25] MEDS: GABAPENTIN 300 MG CAP PO SCH ×2 (08:39→21:34)
[2020-05-25] MEDS: MORPHINE 2 MG/ML SYR IV PRN ×3 (09:35→18:40)
[2020-05-25 10:50] LABS: Absolute Lymphocytes (CBC) 2.2 K/uL (0.7-4.9); Basophils % 0.8 % (0-1.3); Hematocrit 21.1 % (36.0-45.0); Lymphocytes % 26.9 % (15.3-44.8); RBC Red Blood Cell Count 2.61 M/uL (3.86-4.86)
[2020-05-25 11:08] LABS: Magnesium 2.3 mg/dL (1.8-2.4); Phosphorus 4.5 mg/dL (2.5-4.9); Potassium 4.4 mmol/L (3.5-5.1)
--- NOTE | 2020-05-25 11:27 | P.PN ---
Subjective Date of Service: 05/25/20 Subjective: No new changes, Doing well Still has significant pain in right foot. Swelling still present- bilateral LE venous doppler ordered. Patient tolerating antibiotics well, no N/V/D or abdominal pain. Review of Systems 10-point ROS is otherwise unremarkable Physical Examination - Vital Signs Temperature: 98.5 F Blood Pressure: 138/68 Pulse: 116 Respirations: 18 Pulse Ox (%): 94 - Physical Exam General: Alert, Oriented x3 HEENT: Atraumatic, Normocephalic, PERRLA Neck: Supple, 2+ carotid pulse no bruit, JVD not distended Respiratory: Clear to auscultation bilaterally, Normal air movement Cardiovascular: Normal pulses, Regular rate/rhythm, Normal S1 S2 Capillary refill: <2 Seconds Gastrointestinal: Normal bowel sounds, Hypoactive, Soft and benign Integumentary: No rashes, No breakdown, Other (right lower extremiy cellulitis- swelling and erythema noted ) Assessment And Plan - Plan Assessment: 1. Cellulitis of right foot and possible Charcot foot to the right foot also secondary to longstanding diabetes mellitus 2. COVID 19 3. DM type 2 Plan: 1. Continue vancomycin. Zosyn can be DC. Bilateral vLE venous doppler has been ordered. Xray of right foot showed: multiple dislocations involving first and second MTP joints and cuneiform bone indicates fracture, dislocation of third proximal metatarsal, and widening of calcaneal cuboid joint. This could also be the cause of the patients severe foot paina nd swelling. Recommend ortho f/u. -medical management per primary team -continue to monitor for signs of infection -continue to monitor CBC and BMP Plan of care discussed with Dr. Flores. Thank you Dr. Beach for consult.
[2020-05-25] MEDS ORDERED: NA CHLORIDE 0.9% 500 ML ONE (13:15)
[2020-05-25] MEDS ORDERED: ACETAMINOPHEN 500 MG TAB PO ONE (17:00)
--- NOTE | 2020-05-25 17:41 | P.PN ---
Subjective Date of Service: 05/24/20 Still having some pain in the left foot. Overall, patient is feeling better. Still slightly febrile as well. Review of Systems 10-point ROS is otherwise unremarkable Physical Examination - Vital Signs Temperature: 101.5 F Blood Pressure: 147/67 Pulse: 103 Respirations: 18 Pulse Ox (%): 96 - Physical Exam General: Alert, In no apparent distress, Oriented x3 Respiratory: Clear to auscultation bilaterally, Normal air movement Cardiovascular: Regular rate/rhythm, Normal S1 S2, No murmurs Gastrointestinal: Normal bowel sounds, Soft and benign, Non-distended, No tenderness Musculoskeletal: No tenderness Integumentary: No rashes Neurological: Normal speech, Normal strength at 5/5 x4 extr - Studies Medications List Reviewed: Yes Assessment & Plan - Problems (Diagnosis) (1) Charcot's joint Current Visit: Yes Status: Acute (2) Cellulitis of left foot Current Visit: Yes Status: Acute (3) Dislocation of metatarsal joint of left foot Current Visit: Yes Status: Acute (4) Diabetes mellitus Onset Date: 03/26/18 Current Visit: No Status: Acute Qualifiers: Diabetes mellitus type: type 1 Diabetes mellitus complication status: with unspecified complications - Plan 1. Continue with IV antibiotic and will add IV hydrocortisone; possible autoimmune process 2. Continue with local wound care 3. Podiatry consultation will be done as an outpatient 4. Gentle IV hydration 5. Monitor CBC 6. Strict blood sugar monitoring 7. Pain control 8. GI and DVT prophylaxis Discharge Plan: Home Plan to discharge in: Greater than 2 days - Advance Directives Does patient have a Living Will: No Does patient have a Durable POA for Healthcare: No - Code Status/Comfort Care Code Status: Full Code Critical Care: No Time Spent Managing PTS Care (In Minutes): 30
--- NOTE | 2020-05-25 17:41 | P.HP ---
Certification for Inpatient Patient admitted to: Inpatient With expected LOS: >2 Midnights Patient will require the following post-hospital care: None Practitioner: I am a practitioner with admitting privileges, knowledge of patient current condition, hospital course, and medical plan of care. Services: Services provided to patient in accordance with Admission requirements found in Title 42 Section 412.3 of the Code of Federal Regulations Patient History Date of Service: 05/23/20 Reason for admission: Left foot cellulitis History of Present Illness: Patient is a 54-year-old female who came to the hospital with erythema and pain in the left foot. That she had felt she rolled on it and she has a history of diabetes with Charcot joint. Her foot was inflamed and painful. She came into the emergency room for further evaluation. In the emergency room she was started on IV antibiotic therapy. She was consulted with Podiatry. Patient be admitted to the hospital for further evaluation. Patient also has anemia. Will need to continue monitoring H&H closely. If her hemoglobin drops below 7 we will transfuse her. Will check iron studies along with B12 and folic acid. Allergies codeine Allergy (Verified 05/23/20 11:53) Hives tramadol Allergy (Verified 03/25/18 03:14) Hives methylphenidate [From Ritalin] Adverse Reaction (Verified 03/25/18 03:14) seizures Home Medications: Gabapentin 300 mg PO BID 05/23/20 Insulin Detemir [Levemir Flextouch] 30 unit SQ DAILY 05/23/20 Quetiapine [Seroquel] 100 mg PO BEDTIME 05/23/20 - Past Medical/Surgical History Diabetic: Yes -: DM -: Neuropathy -: cholecystectomy -: hysterectomy -: appendectomy -: - Family History Father Medical History: Hypertension, Cancer - Social History Smoking Status: Unknown if ever smoked Alcohol use: No CD- Drugs: No Caffeine use: No Review of Systems 10-point ROS is otherwise unremarkable Physical Examination - Vital Signs Temperature: 101.5 F Blood Pressure: 147/67 Pulse: 103 Respirations: 18 Pulse Ox (%): 96 - Physical Exam General: Alert, In no apparent distress, Oriented x3 HEENT: Atraumatic, PERRLA, Mucous membr. moist/pink, EOMI, Sclerae nonicteric Neck: Supple, 2+ carotid pulse no bruit, No LAD, Without JVD or thyroid abnormality Respiratory: Clear to auscultation bilaterally, Normal air movement Cardiovascular: Regular rate/rhythm, Normal S1 S2, No murmurs Gastrointestinal: Normal bowel sounds, Soft and benign, Non-distended, No tenderness, No rebound, No guarding Musculoskeletal: No clubbing, Swelling, Erythema, Tenderness, Warmth Integumentary: Tenderness/swelling, Erythema, Warmth Neurological: Normal speech, Normal strength at 5/5 x4 extr, Normal tone, Sensation intact, Cranial nerves 3-12 intact, Normal affect, Abnormal gait Lymphatics: No axilla or inguinal lymphadenopathy Assessment & Plan - Problems (Diagnosis) (1) Charcot's joint Current Visit: Yes Status: Acute (2) Cellulitis of left foot Current Visit: Yes Status: Acute (3) Dislocation of metatarsal joint of left foot Current Visit: Yes Status: Acute (4) Diabetes mellitus Onset Date: 03/26/18 Current Visit: No Status: Acute Qualifiers: Diabetes mellitus type: type 1 Diabetes mellitus complication status: with unspecified complications - Plan 1. Continue with IV antibiotic 2. Continue with local wound care 3. Podiatry consultation 4. Gentle IV hydration 5. Monitor CBC 6. Strict blood sugar monitoring 7. Pain control 8. GI and DVT prophylaxis Discharge Plan: Home Plan to discharge in: Greater than 2 days - Advance Directives Does patient have a Living Will: No Does patient have a Durable POA for Healthcare: No - Code Status/Comfort Care Code Status Assessed: Yes Code Status: Full Code Critical Care: No Time Spent Managing PTS Care (In Minutes): 45
[2020-05-25 18:05] LABS: Hematocrit 26.3 % (36.0-45.0)
--- NOTE | 2020-05-25 19:38 | RAD REPORT ---
EXAM DESCRIPTION: US - Extrem Venous W Compress Niels - 05/25/2020 7:30 pm CLINICAL HISTORY: swelling/ cellutlitis COMPARISON: None. TECHNIQUE: Real-time sonographic evaluation of the bilateral lower extremity common femoral, superfi cial femoral, popliteal and posterior tibial veins was performed. FINDINGS: Normal compressibility, flow augmentation, phasic flow and spontaneous flow are identified in the left and right lower extremity common femoral, superficial femoral, popliteal and posterior t ibial veins. No intraluminal filling defects seen. Edematous changes are present in the soft tissues of the left foot. No abscess or drainable fluid collection. IMPRESSION: No DVT in either lower extremity.
[2020-05-25] MEDS: QUETIAPINE 100MG TAB PO SCH (21:37)
[2020-05-26] MEDS: PIPER/TAZO/NS 3.375gm 3.375 GM/100 ML BAG IVPB SCH ×3 (00:48→16:23)
[2020-05-26] MEDS ORDERED: HYDROCORTISONE SUC 100 MG INJ IV ONE (08:43)
[2020-05-26] MEDS: ACETAMINOPHEN 500 MG TAB PO PRN (08:44)
[2020-05-26] MEDS: GABAPENTIN 300 MG CAP PO SCH ×2 (08:44→20:51)
[2020-05-26] MEDS: VANCOMYCIN 1.25 GM in NA CHLORIDE 0.9% 250 ML IVPB SCH (08:45)
[2020-05-26] MEDS: ONDANSETRON 4 MG/2 ML VIAL IV PRN (08:46)
[2020-05-26] MEDS ORDERED: NA CHLORIDE 0.9% 500 ML IV ONE (09:12)
[2020-05-26] MEDS: INSULIN GLARGINE 100 UNITS/ML SQ SCH (10:34)
--- NOTE | 2020-05-26 11:06 | P.PN ---
Subjective Date of Service: 05/26/20 Chief Complaint: Left foot cellulitis Still has significant pain in right foot. Swelling still present, but no acute changes. She received a blood transfusion yesterday and since then has had a fever ranging from 101.9-100.9. Transfusion reaction labs have been sent out. Patient is otherwise hemodynamically stable. No rash or other skin changes noted. Repeat WBC w/ diff and blood cultures order. Review of Systems 10-point ROS is otherwise unremarkable Physical Examination - Vital Signs Temperature: 100.9 F Blood Pressure: 149/71 Pulse: 112 Respirations: 18 Pulse Ox (%): 94 - Physical Exam Other Physical/Emotional Findings: General: Alert, Oriented x3. HEENT: Atraumatic, Normocephalic, PERRLA. Neck: Supple, 2+ carotid pulse no bruit, JVD not distended. Respiratory: Clear to auscultation bilaterally, Normal air movement. Cardiovascular: Normal pulses, Regular rate/rhythm, Normal S1 S2. Capillary refill: <2 Seconds. Gastrointestinal: Normal bowel sounds, Hypoactive, Soft and benign. Integumentary: No rashes, No breakdown, Other (ri ght lower extremiy cellulitis- swelling and erythema noted ) - Studies Laboratory Last Values WBC 7.30 K/uL (4.3-10.9) D 05/23/20 08:34 RBC 3.18 M/uL (3.86-4.86) L 05/23/20 08:34 Hgb 8.7 g/dL (12.0-15.0) L 05/23/20 08:34 Hct 25.7 % (36.0-45.0) L 05/23/20 08:34 MCV 80.8 fL (80-100) 05/23/20 08:34 MCH 27.5 pg (27.0-35.0) 05/23/20 08:34 MCHC 34.0 g/dL (32.0-36.0) 05/23/20 08:34 RDW 15.1 % (12.1-15.2) 05/23/20 08:34 Plt Count 413 K/uL (152-406) H 05/23/20 08:34 MPV 7.4 fL (7.6-11.3) L 05/23/20 08:34 Neutrophils % 57.5 % (41.7-73.7) 05/23/20 08:34 Lymphocytes % 29.6 % (15.3-44.8) 05/23/20 08:34 Monocytes % 8.1 % (3.3-12.3) 05/23/20 08:34 Eosinophils % 3.9 % (0-4.4) 05/23/20 08:34 Basophils % 0.9 % (0-1.3) 05/23/20 08:34 Absolute Neutrophils 4.2 K/uL (1.8-8.0) 05/23/20 08:34 Absolute Lymphocytes 2.2 K/uL (0.7-4.9) 05/23/20 08:34 Absolute Monocytes 0.6 K/uL (0.1-1.3) 05/23/20 08:34 Absolute Eosinophils 0.3 K/uL (0-0.5) 05/23/20 08:34 Absolute Basophils 0.1 K/uL (0-0.5) 05/23/20 08:34 ESR Westergren > 140 mm/HR (0-30) H 05/23/20 08:34 PT 11.4 SECONDS (9.5-12.5) 05/23/20 08:34 INR 0.99 05/23/20 08:34 Sodium 132 mmol/L (136-145) L 05/23/20 08:34 Potassium 4.6 mmol/L (3.5-5.1) 05/23/20 08:34 Chloride 98 mmol/L (98-107) 05/23/20 08:34 Carbon Dioxide 29 mmol/L (21-32) 05/23/20 08:34 BUN 28 mg/dL (7-18) H 05/23/20 08:34 Creatinine 0.93 mg/dL (0.55-1.3) 05/23/20 08:34 Estimated GFR 63 mL/min (=/>90) L 05/23/20 08:34 Glucose 458 mg/dL (74-106) H* 05/23/20 08:34 POC Glucose 230 mg/dL (65-120) H 05/23/20 10:53 Calcium 8.8 mg/dL (8.5-10.1) 05/23/20 08:34 Magnesium 2.7 mg/dL (1.8-2.4) H D 05/23/20 08:34 Total Bilirubin 0.3 mg/dL (0.2-1.0) 05/23/20 08:34 Direct Bilirubin < 0.1 mg/dL (0-0.2) 05/23/20 08:34 AST 10 U/L (15-37) L 05/23/20 08:34 ALT 14 U/L (12-78) 05/23/20 08:34 Alkaline Phosphatase 165 U/L (45-117) H 05/23/20 08:34 Rapid Troponin I < 0.02 ng/mL (0.0-0.045) 05/23/20 08:34 NT-Pro-B Natriuret Pep 218 pg/mL (<125) H 05/23/20 08:34 Serum Total Protein 8.3 g/dL (6.4-8.2) H 05/23/20 08:34 Albumin 3.1 g/dL (3.4-5.0) L 05/23/20 08:34 Globulin 5.2 g/dL (2.3-3.5) H 05/23/20 08:34 Albumin/Globulin Ratio 0.6 (1.1-1.8) L 05/23/20 08:34 Lipase 326 U/L (73-393) 05/23/20 08:34 SARS-CoV-2 RNA (RT-PCR) Positive (NEGATIVE) A 05/23/20 10:15 ABO/Rh O POSITIVE 05/23/20 08:34 Assessment And Plan - Plan Assessment: 1. Cellulitis of right foot and possible Charcot foot to the right foot also secondary to longstanding diabetes mellitus 2.fever 3. COVID 19 3. DM type 2 Plan: 1. Continue vancomycin and zosym . Bilateral vLE venous doppler negative for DVT. Xray of right foot showed: multiple dislocations involving first and second MTP joints and cuneiform bone indicates fracture, dislocation of third proximal metatarsal, and widening of calcaneal cuboid joint. This could also be the cause of the patients severe foot pain and swelling. Recommend ortho f/u. 2. Temperature ranging form 101.9-100.9. Repeat CBC w./ diff and blood cultures ordered. Continue current antibiotic therapy. -medical management per primary team -continue to monitor for signs of infection -continue to monitor CBC and BMP Plan of care discussed with Dr. Flores. Thank you Dr. Beach for consult.
[2020-05-26 11:31] LABS: Absolute Lymphocytes (CBC) 1.7 K/uL (0.7-4.9); Basophils % 0.7 % (0-1.3); Hematocrit 24.7 % (36.0-45.0); Lymphocytes % 22.2 % (15.3-44.8); MPV 7.2 fL (7.6-11.3); RBC Red Blood Cell Count 3.06 M/uL (3.86-4.86)
[2020-05-26] MEDS: MORPHINE 2 MG/ML SYR IV PRN ×2 (11:43→20:55)
[2020-05-26 11:44] LABS: BUN Blood Urea Nitrogen 10 mg/dL (7-18); Bicarbonate 27 mmol/L (21-32); Glucose Level 112 mg/dL (74-106); Potassium 4.1 mmol/L (3.5-5.1); Sodium Level 140 mmol/L (136-145)
[2020-05-26] MEDS ORDERED: WATER FOR INJ,STERILE 10 ML IV SCH (16:00)
[2020-05-26] MEDS: SOD FERRIC GLUC COMPLX/SUCROSE 125 MG in NA CHLORIDE 0.9% 100 ML IV SCH (16:22)
[2020-05-26] MEDS: HYDROCORTISONE SUC 100 MG INJ IV SCH (16:23)
[2020-05-26] MEDS: ACETAMINOPHEN 325 MG TABLET PO SCH (17:48)
[2020-05-26] MEDS: METOPROLOL TAR 25 MG TAB PO SCH (17:49)
[2020-05-26 18:19] LABS: Hematocrit 27.4 % (36.0-45.0)
[2020-05-26] MEDS ORDERED: MAGNES/ALUMIN/SIMET 30ML UCUP PO ONE (20:00)
[2020-05-26] MEDS: QUETIAPINE 100MG TAB PO SCH (20:51)
[2020-05-26] MEDS ORDERED: D50W 25 GM/50 ML SYRINGE IV PRN (23:39)
[2020-05-26] MEDS ORDERED: GLUCAGON 1 MG/VIAL IM PRN (23:39)
[2020-05-27] MEDS: ACETAMINOPHEN 325 MG TABLET PO SCH ×3 (01:20→12:00)
[2020-05-27] MEDS: PIPER/TAZO/NS 3.375gm 3.375 GM/100 ML BAG IVPB SCH ×3 (01:21→16:57)
[2020-05-27] MEDS: HYDROCORTISONE SUC 100 MG INJ IV SCH ×2 (01:21→08:51)
[2020-05-27] MEDS: METOPROLOL TAR 25 MG TAB PO SCH ×2 (05:56→16:58)
[2020-05-27] MEDS: PANTOPRAZOLE 40MG TABLET PO SCH ×2 (08:51→16:10)
[2020-05-27] MEDS: GABAPENTIN 300 MG CAP PO SCH ×2 (08:51→21:28)
[2020-05-27] MEDS: INSULIN GLARGINE 100 UNITS/ML SQ SCH (08:52)
[2020-05-27] MEDS: MORPHINE 2 MG/ML SYR IV PRN ×3 (09:13→21:33)
[2020-05-27] MEDS: SOD FERRIC GLUC COMPLX/SUCROSE 125 MG in NA CHLORIDE 0.9% 100 ML IV SCH (09:38)
--- NOTE | 2020-05-27 09:38 | P.PN ---
Date of Service: 05/25/20 Subjective Patient is clinically feeling better. Still having some pain when she walks. She states the steroids is helped her. Anticipate discharge home later today. Review of Systems 10-point ROS is otherwise unremarkable Physical Examination - Vital Signs Reviewed - Physical Exam General: Alert, In no apparent distress, Oriented x3 Respiratory: Clear to auscultation bilaterally, Normal air movement Cardiovascular: Regular rate/rhythm, Normal S1 S2, No murmurs Gastrointestinal: Normal bowel sounds, Soft and benign, Non-distended, No tenderness Musculoskeletal: Tenderness on the left foot with some erythema that is improved Assessment & Plan - Problems (Diagnosis) (1) Charcot's joint Current Visit: Yes Status: Acute (2) Cellulitis versus inflammatory arthritis(possible gout) of left foot Current Visit: Yes Status: Acute (3) Dislocation of metatarsal joint of left foot Current Visit: Yes Status: Acute (4) Diabetes mellitus Onset Date: 03/26/18 Current Visit: No Status: Acute Qualifiers: Diabetes mellitus type: type 1 Diabetes mellitus complication status: with unspecified complications - Plan 1. Continue with IV antibiotic; patient actually feeling better with Hydrocortisone. Will need autoimmune workup as outpatient. 2. Continue with local wound care 3. Podiatry consultation will be done as an outpatient 4. Gentle IV hydration 5. Monitor CBC 6. Strict blood sugar monitoring 7. Pain control 8. GI and DVT prophylaxis
[2020-05-27] MEDS: VANCOMYCIN 1.25 GM in NA CHLORIDE 0.9% 250 ML IVPB SCH (09:40)
--- NOTE | 2020-05-27 09:40 | P.PN ---
Date of Service: 05/26/20 Subjective Patient continues to improve with no new complaints. Still with slight fever but otherwise doing well and anticipate discharge in the morning. Review of Systems 10-point ROS is otherwise unremarkable Physical Examination - Vital Signs Reviewed - Physical Exam General: Alert, In no apparent distress, Oriented x3 Respiratory: Clear to auscultation bilaterally, Normal air movement Cardiovascular: Regular rate/rhythm, Normal S1 S2, No murmurs Gastrointestinal: Normal bowel sounds, Soft and benign, Non-distended, No tenderness Musculoskeletal: Tenderness on the left foot with some erythema that is improved Assessment & Plan - Problems (Diagnosis) (1) Charcot's joint Current Visit: Yes Status: Acute (2) Cellulitis versus inflammatory arthritis(possible gout) of left foot Current Visit: Yes Status: Acute (3) Dislocation of metatarsal joint of left foot Current Visit: Yes Status: Acute (4) Diabetes mellitus Onset Date: 03/26/18 Current Visit: No Status: Acute Qualifiers: Diabetes mellitus type: type 1 Diabetes mellitus complication status: with unspecified complications - Plan 1. Continue with IV antibiotic; continue antipyretic; of steroids at discharge in the morning. Will need autoimmune workup as outpatient. 2. Pain control as tolerated 3. Podiatry consultation will be done as an outpatient 4. Hep-Lock IV 5. Monitor CBC 6. Strict blood sugar monitoring 7. Pain control 8. GI and DVT prophylaxis
[2020-05-27] MEDS: Levofloxacin500mg IV 500 MG/100 ML BAG IV SCH (11:13)
[2020-05-27 11:21] LABS: Potassium 4.1 mmol/L (3.5-5.1)
[2020-05-27 11:25] LABS: Basophils % 2.6 % (0-1.3); Hematocrit 23.7 % (36.0-45.0); Lymphocytes % 12.2 % (15.3-44.8); RBC Red Blood Cell Count 2.95 M/uL (3.86-4.86)
--- NOTE | 2020-05-27 12:05 | RAD REPORT ---
EXAM DESCRIPTION: RAD - Foot Left 3 View - 05/27/2020 10:24 am CLINICAL HISTORY: Questionable Fracture/Pain Pain and swelling COMPARISON: Foot Left 3 View dated 05/23/2020; Foot Left 3 View dated 05/10/2020; Ankle Left 3 View tawanna ed 05/10/2020 FINDINGS: There is Lisfranc fracture/ dislocation seen of the midfoot, with adjacent soft tissue swe lling. Significant incongruity and subluxation is noted involving the tarsal metatarsal articulations with moderate soft tissue swelling evident. Mild midfoot collapse is seen with large posterior calca saundra spur. IMPRESSION: Lisfranc fracture/dislocation involving the midfoot with mild midfoot collapse present. Recommend orthopedic surgical consultation.
[2020-05-27 12:48] LABS: Albumin 2.3 g/dL (3.4-5.0); Bilirubin Direct 0.1 mg/dL (0-0.2); Bilirubin Total 0.2 mg/dL (0.2-1.0); Protein, Total 7.1 g/dL (6.4-8.2)
[2020-05-27 13:19] LABS: Blood Morphology Comment NOT SEEN (NOT SEEN); Platelet Estimate INCR; White Blood Cell Scan OK (OK)
[2020-05-27] MEDS ORDERED: NA CHLORIDE 0.9% 250 ML ONE (13:25)
[2020-05-27] MEDS: ONDANSETRON 4 MG/2 ML VIAL IV PRN (16:10)
[2020-05-27] MEDS: QUETIAPINE 100MG TAB PO SCH (21:28)
[2020-05-27] MEDS: predniSONE 20 MG TAB PO SCH (21:28)
[2020-05-27] MEDS ORDERED: INSULIN 70/30 100 UNITS/ML SQ ONE (23:39)
[2020-05-28] MEDS: PIPER/TAZO/NS 3.375gm 3.375 GM/100 ML BAG IVPB SCH ×3 (00:58→16:23)
[2020-05-28 02:19] VITALS: BMI 17.4
[2020-05-28] MEDS: METOPROLOL TAR 25 MG TAB PO SCH ×2 (06:00→17:55)
[2020-05-28] MEDS: VANCOMYCIN 1.25 GM in NA CHLORIDE 0.9% 250 ML IVPB SCH (08:21)
[2020-05-28] MEDS: predniSONE 20 MG TAB PO SCH ×2 (08:22→21:31)
[2020-05-28] MEDS: PANTOPRAZOLE 40MG TABLET PO SCH ×2 (08:22→16:23)
[2020-05-28] MEDS: GABAPENTIN 300 MG CAP PO SCH ×2 (08:23→21:32)
[2020-05-28] MEDS: MORPHINE 2 MG/ML SYR IV PRN ×3 (08:25→21:40)
[2020-05-28] MEDS: INSULIN GLARGINE 100 UNITS/ML SQ SCH (09:00)
[2020-05-28 10:03] LABS: Hematocrit 28.4 % (36.0-45.0); RBC Red Blood Cell Count 3.47 M/uL (3.86-4.86)
[2020-05-28 10:20] LABS: BUN Blood Urea Nitrogen 20 mg/dL (7-18); Bicarbonate 27 mmol/L (21-32); Glucose Level 164 mg/dL (74-106); Potassium 4.1 mmol/L (3.5-5.1); Sodium Level 140 mmol/L (136-145)
[2020-05-28] MEDS: Levofloxacin500mg IV 500 MG/100 ML BAG IV SCH (10:48)
[2020-05-28] MEDS: SOD FERRIC GLUC COMPLX/SUCROSE 125 MG in NA CHLORIDE 0.9% 100 ML IV SCH (10:48)
--- NOTE | 2020-05-28 15:19 | RAD REPORT ---
EXAM DESCRIPTION: Marco A Single View05/28/2020 2:54 pm CLINICAL HISTORY: Chest pain COMPARISON: May 23, 2020 FINDINGS: Moderate bilateral pulmonary opacities. Heart is borderline enlarged IMPRESSION: Moderate bilateral pulmonary opacities may represent pulmonary edema. Probably less lik kaylene this represents pneumonia
[2020-05-28] MEDS ORDERED: FUROSEMIDE 20 MG/ 2ML VIAL IV ONE (15:35)
[2020-05-28] MEDS: FUROSEMIDE 20 MG/ 2ML VIAL IV SCH (17:00)
[2020-05-28 17:35] VITALS: O2SAT 95
[2020-05-28] MEDS: QUETIAPINE 100MG TAB PO SCH (21:32)
[2020-05-29] MEDS: FUROSEMIDE 20 MG/ 2ML VIAL IV SCH ×3 (02:08→16:57)
[2020-05-29] MEDS: PIPER/TAZO/NS 3.375gm 3.375 GM/100 ML BAG IVPB SCH ×2 (02:09→07:59)
--- NOTE | 2020-05-29 02:58 | P.PN ---
Date of Service: 05/27/20 Subjective Patient erythema has improved. Patient is ambulating better according to the patient. We anticipate going home in the morning. We will talk to podiatry and make sure there is nothing further they recommend. Review of Systems 10-point ROS is otherwise unremarkable Physical Examination - Vital Signs Reviewed - Physical Exam General: Alert, In no apparent distress, Oriented x3 Respiratory: Clear to auscultation bilaterally, Normal air movement Cardiovascular: Regular rate/rhythm, Normal S1 S2, No murmurs Gastrointestinal: Normal bowel sounds, Soft and benign, Non-distended, No tenderness Musculoskeletal: Tenderness on the left foot with some erythema that is improved Assessment & Plan - Problems (Diagnosis) (1) Charcot's joint/lisfranc fracture Current Visit: Yes Status: Acute (2) Cellulitis versus inflammatory arthritis(possible gout) of left foot Current Visit: Yes Status: Acute (3) Dislocation of metatarsal joint of left foot Current Visit: Yes Status: Acute (4) Diabetes mellitus Onset Date: 03/26/18 Current Visit: No Status: Acute Qualifiers: Diabetes mellitus type: type 1 Diabetes mellitus complication status: with unspecified complications - Plan 1. Continue with IV antibiotic; Plan of change to oral anticipate discharge in 24-48 hours; continue antipyretic as needed ; Change steroids at discharge To p.o. in the morning. Will need autoimmune workup as outpatient. 2. Pain control as tolerated 3. Podiatry consultation will be done as an outpatient; spoke with Dr. Renee on admission and he wanted outpatient followup 4. Hep-Lock IV; monitor input and output 5. Continue monitoring labs 6. Strict blood sugar monitoring 7. Pain control; will try to get a foot brace prior to discharge 8. GI and DVT prophylaxis
--- NOTE | 2020-05-29 03:09 | P.PN ---
Date of Service: 05/28/20 Subjective Patient continues to do well. However, patient did have some shortness of breath today. She stated that she has some pleuritic chest pain. Review of Systems 10-point ROS is otherwise unremarkable Physical Examination - Vital Signs Reviewed - Physical Exam General: Alert, In no apparent distress, Oriented x3 Respiratory: Clear to auscultation bilaterally, Normal air movement Cardiovascular: Regular rate/rhythm, Normal S1 S2, No murmurs Gastrointestinal: Normal bowel sounds, Soft and benign, Non-distended, No tenderness Musculoskeletal: Tenderness on the left foot with some erythema that is improved; Assessment & Plan - Problems (Diagnosis) (1) Dyspnea Current Visit: Yes Status: Acute (2) Cellulitis versus inflammatory arthritis(possible gout) of left foot Current Visit: Yes Status: Acute (3) Dislocation of metatarsal joint of left foot/Charcot's joint/lisfranc fracture Current Visit: Yes Status: Acute (4) Diabetes mellitus Onset Date: 03/26/18 Current Visit: No Status: Acute Qualifiers: Diabetes mellitus type: type 1 Diabetes mellitus complication status: with unspecified complications - Plan 1. Continue with IV antibiotic; Plan was to discharge today however patient became a little dyspneic and chest x-ray revealed some pulmonary edema. Recent chest x-ray did not have any abnormalities prior to today. Will gently diarrhea today and get a BNP. I still feel patient can be discharged in the morning period podiatry wants to see patient as an outpatient and no surgical intervention at this time just conservative management. 2. Wean off steroids as an outpatient 3. Podiatry consultation will be done as an outpatient; spoke with Dr. Renee, (cellphone is [phone]) on admission and he wanted outpatient followup 4. Hep-Lock IV; monitor input and output 5. Continue monitoring labs 6. Strict blood sugar monitoring 7. Pain control; will try to get a foot brace prior to discharge 8. GI and DVT prophylaxis
[2020-05-29 04:22] LABS: Absolute Lymphocytes (CBC) 1.3 K/uL (0.7-4.9); Basophils % 0.4 % (0-1.3); Hematocrit 24.7 % (36.0-45.0); Lymphocytes % 15.4 % (15.3-44.8); MPV 7.1 fL (7.6-11.3); RBC Red Blood Cell Count 3.05 M/uL (3.86-4.86)
[2020-05-29 04:36] LABS: Albumin 2.3 g/dL (3.4-5.0); Bilirubin Total 0.2 mg/dL (0.2-1.0); Magnesium 2.2 mg/dL (1.8-2.4); Phosphorus 3.5 mg/dL (2.5-4.9); Potassium 4.1 mmol/L (3.5-5.1); Protein, Total 6.7 g/dL (6.4-8.2)
[2020-05-29] MEDS: METOPROLOL TAR 25 MG TAB PO SCH ×2 (06:09→16:58)
--- NOTE | 2020-05-29 07:38 | RAD REPORT ---
EXAM DESCRIPTION: RAD - Chest Single View - 05/29/2020 5:16 am CLINICAL HISTORY: pneumonia COMPARISON: Portable May 28 TECHNIQUE: AP portable chest image was obtained 05/29/2020 5:16 am . FINDINGS: Diffuse interstitial prominence present throughout both lung conley improved but not resol kimberly from prior imaging. Cardiac silhouette is upper normal slightly enlarged. Mild vascular engorgeme nt present. These are both stable findings. Bilateral costophrenic angle blunting is present. No pneu mothorax. No acute bony abnormality seen. No acute aortic findings suspected. IMPRESSION: Diffusely prominent interstitial pattern showing improvement from prior imaging. Small bilateral pleural effusions remain.
[2020-05-29] MEDS: PANTOPRAZOLE 40MG TABLET PO SCH ×2 (07:58→16:57)
[2020-05-29] MEDS: predniSONE 20 MG TAB PO SCH (07:59)
[2020-05-29] MEDS: INSULIN GLARGINE 100 UNITS/ML SQ SCH (07:59)
[2020-05-29] MEDS: GABAPENTIN 300 MG CAP PO SCH ×2 (08:01→20:41)
[2020-05-29] MEDS: VANCOMYCIN 1.25 GM in NA CHLORIDE 0.9% 250 ML IVPB SCH (08:03)
[2020-05-29] MEDS: MORPHINE 2 MG/ML SYR IV PRN (08:18)
[2020-05-29] MEDS: Levofloxacin500mg IV 500 MG/100 ML BAG IV SCH (09:11)
--- NOTE | 2020-05-29 09:33 | P.DS ---
Admission Date: 05/23/20 Discharge Date: 05/29/20 Primary Care Provider: Leslie Downey NP Disposition: ROUTINE DISCHARGE Discharge Condition: GOOD Reason for Admission: Left foot cellulitis Consultations: Podiatry-Dr. Renee Infectious disease-Dr. Flores Procedures: COVID: Positive Initial foot Xray: FINDINGS: Dislocations involve the first and second MTP joints. Cortical irregularity involves the medial cuneiform bone which may indicate fracture. There probably is a subtle dislocation of third proximal metatarsal. Widening of the calcaneal cuboid joint probably secondary to ligamentous disruption Venous doppler: FINDINGS: Left common femoral, superficial femoral, popliteal and posterior tibial veins are compressible and demonstrate augmentation. Doppler demonstrates good flow. 1.2 x 1.2 x 0.3 centimeter heterogeneous fluid collection medial left foot IMPRESSION: No evidence of deep venous thrombosis involving the left lower extremity. 1.2 x 1.2 x 0.3 centimeter heterogeneous fluid collection medial left foot may represent a small hematoma or abscess Follow up Foot Xray: COMPARISON: Foot Left 3 View dated 05/23/2020; Foot Left 3 View dated 05/10/2020; Ankle Left 3 View dated 05/10/2020 FINDINGS: There is Lisfranc fracture/ dislocation seen of the midfoot, with adjacent soft tissue swelling. Significant incongruity and subluxation is noted involving the tarsal metatarsal articulations with moderate soft tissue swelling evident. Mild midfoot collapse is seen with large posterior calcaneal spur. IMPRESSION: Lisfranc fracture/dislocation involving the midfoot with mild midfoot collapse present. CXR: FINDINGS: Diffuse interstitial prominence present throughout both lung conley improved but not resolved from prior imaging. Cardiac silhouette is upper normal slightly enlarged. Mild vascular engorgement present. These are both stable findings. Bilateral costophrenic angle blunting is present. No pneumothorax. No acute bony abnormality seen. No acute aortic findings suspected. IMPRESSION: Diffusely prominent interstitial pattern showing improvement from prior imaging. Small bilateral pleural effusions remain. Venous Doppler: FINDINGS: Normal compressibility, flow augmentation, phasic flow and spontaneous flow are identified in the left and right lower extremity common femoral, superficial femoral, popliteal and posterior tibial veins. No intraluminal filling defects seen. Edematous changes are present in the soft tissues of the left foot. No abscess or drainable fluid collection. IMPRESSION: No DVT in either lower extremity. Medical Problem List: Cellulitis of the left foot complicated with Lisfranc fracture/dislocation involving the midfoot with mild midfoot collapse present suspect Charcot's foot Diabetes mellitus type 2 with hyperglycemia Dyspnea secondary to COVID 19 pneumonia Anemia of chronic disease with iron deficiency status post transfusion Hypertension Diabetic neuropathy Depression with anxiety Brief History of Present Illness: 54-year-old female presented with erythema and pain in the left foot. Patient reported that she rolled on it. Patient also reports history of diabetes with Charcot joint. Her foot was inflamed and painful. She came into the emergency room for further evaluation. In the emergency room she was started on IV antibiotic therapy. She was consulted with Podiatry. Patient be admitted to the hospital for further evaluation. Hospital Course: Patient presented with cellulitis of the left foot complicated with Lisfranc fracture/dislocation involving the midfoot with mild midfoot collapse. Patient with history of Charcot foot. Patient was seen and evaluated by infectious disease. Patient improved with IV antibiotic therapy. Venous Doppler showed no blood clot. Podiatry was consulted. No intervention was required. At discharge swelling improved. Pain also improved. At discharge patient will continue with Levaquin 500 mg daily for 14 days. The patient will also be provided lactobacillus twice daily. Podiatry recommends boot for the left foot. Recommend close follow up with Podiatry-Dr. Renee in 1 week to follow up this hospitalization and continue her care. Fall precautions in place. Importance of follow up with Podiatry is imperative. She may require crutches. Patient with diabetes mellitus type 2 with hyperglycemia. Patient takes insulin. At discharge she will continue with Levemir 30 units subcu daily. Recommend to maintain blood sugar less than 140 fasting and less than 200 after meals. Further adjustment in medication may be required. If blood sugar remains above 200 consistently then she is to increase Levemir by 1-2 units for better diabetic control. Recommend follow up with PCP in 1 week to follow up this hospitalization and strict management of her diabetes. Patient with hypertension. This appears new. Patient was started on medication. At discharge she will continue with metoprolol 25 mg 1 pill twice daily. Recommend to maintain blood pressure less than 130/80. Hold blood pressure medication if blood pressure systolic less than 110 or heart rate less than 50. Further adjustment can be done by her PCP. Patient also had some dyspnea. Patient was positive for COVID 19. Patient was started on IV steroid with improvement. Chest x-ray shows improvement. Patient without the need of oxygen at discharge. At discharge she will continue with prednisone 10 mg 1 pill twice daily for 7 days then 1 pill once daily for 7 days. Patient will also continue with thiamine 100 mg 1 pill twice daily, vitamin-C 500 mg 1 pill 3 times a day, vitamin-D 2000 units daily, zinc 220 mg daily. Recommend to continue with CDC guidelines on COVID isolation. Continue with hand washing, face mask use, and social distancing. Isolation for at least 10 days. Patient with diabetic neuropathy. At discharge she will continue with gabapentin 300 mg 1 pill twice daily. Further adjustment can be done by her PCP. Patient with depression with anxiety. At discharge she will continue with Seroquel 100 mg at bedtime. Patient with iron deficiency anemia and of chronic disease. Patient given transfusion during her stay. Patient also provided IV iron. At discharge patient will continue with iron supplementation twice daily. Recommend to recheck CBC in 2-4 weeks to monitor her progress. Vital Signs/Physical Exam: Temp Pulse Resp BP Pulse Ox 97.5 F 76 18 128/58 L 95 05/29/20 03:29 05/29/20 08:00 05/29/20 08:18 05/29/20 08:00 05/29/20 08:18 General: Alert, In no apparent distress, Oriented x3, Cooperative HEENT: Atraumatic Neck: Supple Respiratory: Clear to auscultation bilaterally, Normal air movement Cardiovascular: Normal pulses, Regular rate/rhythm Gastrointestinal: Normal bowel sounds, No tenderness, No masses, No rebound, No guarding Musculoskeletal: Other (No erythema noted. Swelling stable. ) Neurological: Normal speech, Normal strength at 5/5 x4 extr, Normal tone, Normal affect Laboratory Data at Discharge: WBC 8.10 K/uL (4.3-10.9) 05/29/20 03:33 Hgb 8.6 g/dL (12.0-15.0) L 05/29/20 03:33 Hct 24.7 % (36.0-45.0) L 05/29/20 03:33 Plt Count 478 K/uL (152-406) H 05/29/20 03:33 PT 12.1 SECONDS (9.5-12.5) 05/24/20 03:34 INR 1.05 05/24/20 03:34 APTT 29.3 SECONDS (24.3-36.9) 05/24/20 03:34 Sodium 140 mmol/L (136-145) 05/29/20 03:33 Potassium 4.1 mmol/L (3.5-5.1) 05/29/20 03:33 BUN 21 mg/dL (7-18) H 05/29/20 03:33 Creatinine 0.77 mg/dL (0.55-1.3) 05/29/20 03:33 Glucose 256 mg/dL (74-106) H 05/29/20 03:33 Phosphorus 3.5 mg/dL (2.5-4.9) 05/29/20 03:33 Magnesium 2.2 mg/dL (1.8-2.4) 05/29/20 03:33 Total Bilirubin 0.2 mg/dL (0.2-1.0) 05/29/20 03:33 AST 10 U/L (15-37) L 05/29/20 03:33 ALT 16 U/L (12-78) 05/29/20 03:33 Alkaline Phosphatase 86 U/L (45-117) 05/29/20 03:33 Lipase 326 U/L (73-393) 05/23/20 08:34 Home Medications: Gabapentin 300 mg PO BID 05/23/20 Insulin Detemir [Levemir Flextouch] 30 unit SQ DAILY 05/23/20 Quetiapine [Seroquel*] 100 mg PO BEDTIME 05/23/20 Levofloxacin [Levaquin] 500 mg PO DAILY #14 tablet 05/27/20 Metoprolol Tartrate [Lopressor*] 25 mg PO BID 6AM 6PM #60 tab 05/27/20 Ascorbate Calcium [Vitamin C] 500 mg PO TID #90 tablet 05/29/20 Cholecalciferol (Vitamin D3) [Vitamin D 1000 Iu Tab] 2,000 unit PO DAILY #60 tab 05/29/20 Cyanocobalamin (Vitamin B-12) [Vitamin B-12] 1,000 mcg PO DAILY #90 capsule 05/29/20 Ferrous Sulfate [Iron] 325 mg PO BID #60 tablet 05/29/20 Folic Acid 1 mg PO DAILY #90 tablet 05/29/20 Lactobacillus Acidophilus [Acidophilus Lactobacilli] 1 each PO BID #30 capsule 05/29/20 Thiamine HCl 100 mg PO DAILY #90 tablet 05/29/20 Zinc Sulfate [Zinc Sulfate*] 220 mg PO DAILY #30 cap 05/29/20 predniSONE [Deltasone*] 10 mg PO SEECOM #21 tab 05/29/20 New Medications: Lactobacillus Acidophilus [Acidophilus Lactobacilli] 1 each PO BID #30 capsule predniSONE [Deltasone*] 10 mg PO SEECOM #21 tab Folic Acid 1 mg PO DAILY #90 tablet Ferrous Sulfate [Iron] 325 mg PO BID #60 tablet Levofloxacin [Levaquin] 500 mg PO DAILY #14 tablet Metoprolol Tartrate [Lopressor*] 25 mg PO BID 6AM 6PM #60 tab Thiamine HCl 100 mg PO DAILY #90 tablet Cyanocobalamin (Vitamin B-12) [Vitamin B-12] 1,000 mcg PO DAILY #90 capsule Ascorbate Calcium [Vitamin C] 500 mg PO TID #90 tablet Cholecalciferol (Vitamin D3) [Vitamin D 1000 Iu Tab] 2,000 unit PO DAILY #60 tab Zinc Sulfate [Zinc Sulfate*] 220 mg PO DAILY #30 cap Physician Discharge Instructions: Follow up with PCP in 1 week to follow up this hospitalization. Patient presented with cellulitis of the left foot complicated with Lisfranc fracture/dislocation involving the midfoot with mild midfoot collapse. Patient with history of Charcot foot. Patient was seen and evaluated by infectious disease. Patient improved with IV antibiotic therapy. Venous Doppler showed no blood clot. Podiatry was consulted. No intervention was required. At discharge swelling improved. Pain also improved. At discharge patient will continue with Levaquin 500 mg daily for 14 days. The patient will also be provided lactobacillus twice daily. Podiatry recommends boot for the left foot. Recommend close follow up with Podiatry-Dr. Renee in 1 week to follow up this hospitalization and continue her care. Fall precautions in place. Importance of follow up with Podiatry is imperative. She may require crutches. Patient with diabetes mellitus type 2 with hyperglycemia. Patient takes insulin. At discharge she will continue with Levemir 30 units subcu daily. Recommend to maintain blood sugar less than 140 fasting and less than 200 after meals. Further adjustment in medication may be required. If blood sugar remains above 200 consistently then she is to increase Levemir by 1-2 units for better diabetic control. Recommend follow up with PCP in 1 week to follow up this hospitalization and strict management of her diabetes. Patient with hypertension. This appears new. Patient was started on medication. At discharge she will continue with metoprolol 25 mg 1 pill twice daily. Recommend to maintain blood pressure less than 130/80. Hold blood pressure medication if blood pressure systolic less than 110 or heart rate less than 50. Further adjustment can be done by her PCP. Patient also had some dyspnea. Patient was positive for COVID 19. Patient was started on IV steroid with improvement. Chest x-ray shows improvement. Patient without the need of oxygen at discharge. At discharge she will continue with prednisone 10 mg 1 pill twice daily for 7 days then 1 pill once daily for 7 days. Patient will also continue with thiamine 100 mg 1 pill twice daily, vitamin-C 500 mg 1 pill 3 times a day, vitamin-D 2000 units daily, zinc 220 mg daily. Recommend to continue with CDC guidelines on COVID isolation. Continue with hand washing, face mask use, and social distancing. Isolation for at least 10 days. Patient with diabetic neuropathy. At discharge she will continue with gabapentin 300 mg 1 pill twice daily. Further adjustment can be done by her PCP. Patient with depression with anxiety. At discharge she will continue with Seroquel 100 mg at bedtime. Patient with iron deficiency anemia and of chronic disease. Patient given transfusion during her stay. Patient also provided IV iron. At discharge patient will continue with iron supplementation twice daily. Recommend to recheck CBC in 2-4 weeks to monitor her progress. FOLLOW-UP WITH Podiatry, Dr. Tremaine Renee, , IN 1-2 WEEKS RETURN TO THE ER IF symptoms worsen CALL or TEXT DR. ACUNA AT [phone] IF ANY QUESTIONS REGARDING HOSPITAL STAY. PLEASE CALL THE FLOOR AT [phone] IF ANY MEDICATION OR NURSING QUESTIONS. Diet: ADA Activity: Fall precautions Followup: ASHLEY DOWNEY [Primary Care Provider] - 1-2 Weeks (call to schedule appointment) Time spent managing pt's care (in minutes): 55
[2020-05-29] MEDS: SOD FERRIC GLUC COMPLX/SUCROSE 125 MG in NA CHLORIDE 0.9% 100 ML IV SCH (10:24)
[2020-05-29] MEDS: ACETAMINOPHEN 500 MG TAB PO PRN (13:38)
[2020-05-29] MEDS ORDERED: D50W 25 GM/50 ML VIAL IV PRN (16:00)
[2020-05-29] MEDS: HYDROCODONE/APAP 7.5/325 MG TAB PO PRN (18:02)
[2020-05-29] MEDS: predniSONE 10 MG TAB PO SCH (20:41)
[2020-05-29] MEDS: QUETIAPINE 100MG TAB PO SCH (20:41)
[2020-05-30] MEDS: FUROSEMIDE 20 MG/ 2ML VIAL IV SCH ×2 (01:15→09:15)
[2020-05-30] MEDS: METOPROLOL TAR 25 MG TAB PO SCH (05:43)
[2020-05-30] MEDS: INSULIN GLARGINE 100 UNITS/ML SQ SCH ×2 (09:00→12:49)
[2020-05-30] MEDS: SOD FERRIC GLUC COMPLX/SUCROSE 125 MG in NA CHLORIDE 0.9% 100 ML IV SCH (09:13)
[2020-05-30] MEDS: Levofloxacin500mg IV 500 MG/100 ML BAG IV SCH (09:14)
[2020-05-30] MEDS: predniSONE 10 MG TAB PO SCH (09:14)
[2020-05-30] MEDS: PANTOPRAZOLE 40MG TABLET PO SCH (09:15)
[2020-05-30] MEDS: GABAPENTIN 300 MG CAP PO SCH (09:15)
--- NOTE | 2020-05-30 10:01 | EKG ---
Test Date: 2020-05-28 Test Time: 14:32:33 Ultrasound Spec: MALENA MEASUREMENT RESULTS: Intervals: Rate: 92 GA: 154 QRSD: 78 QT: 374 QTc: 462 [place]: P: 72 GA: 154 QRS: 79 T: 71 INTERPRETIVE STATEMENTS: Normal sinus rhythm Normal ECG Compared to ECG 05/23/2020 08:48:51 Sinus tachycardia no longer present Electronically Signed On 05-30-20 09:59:36 [employer] BUSINESS ANALYST by Rogerio Smith
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
[2020-05-30] MEDS: HYDROCODONE/APAP 7.5/325 MG TAB PO PRN (13:01)
[2020-05-30 17:15] VITALS: BP 139/68; TEMP 96.7
[2020-05-30] MEDS ORDERED: GLUCERNA SHAKE 237 ML CAN PO SCH (21:00)
== END 2020-05-30 16:30 | disposition home or self-care (01) | DRG 602 ==
LOC: ER 07:49 → ERHOLD 11:20 → 4TH 16:01
PROVIDERS: ADMIT Hospitalist; ATTEND Family Medicine
PROC: 30233N1 Transfusion of Nonautologous Red Blood Cells into Peripheral Vein, Percutaneous Approach (ICD-10-PCS; principal; 2020-05-25)
DX: L03.115 Cellulitis of right lower limb (principal); U07.1 COVID-19; J12.82 Pneumonia due to coronavirus disease 2019; E11.610 Type 2 diabetes mellitus with diabetic neuropathic arthropathy; E11.65 Type 2 diabetes mellitus with hyperglycemia; D50.9 Iron deficiency anemia, unspecified; I10 Essential (primary) hypertension; D63.8 Anemia in other chronic diseases classified elsewhere; F41.8 Other specified anxiety disorders; S93.335A Other dislocation of left foot, initial encounter; W18.30XA Fall on same level, unspecified, initial encounter; R06.00 Dyspnea, unspecified; Z88.5 Allergy status to narcotic agent; Z88.8 Allergy status to other drugs, medicaments and biological substances; Z79.4 Long term (current) use of insulin; Z90.711 Acquired absence of uterus with remaining cervical stump; Z90.49 Acquired absence of other specified parts of digestive tract; Z79.52 Long term (current) use of systemic steroids
CPT/HCPCS: 36415; 36430; 71045; 80048; 80053; 80076; 80202; 82607; 82746; 82947; 83036; 83540; 83690; 83735; 83880; 84100; 84145; 84484; 85014; 85018; 85025; 85027; 85044; 85610; 85652; 85730; 86850; 86900; 86901; 87040; 93005; 93970; 93971; 96372; 97162; 99285; J1720; J1815; J1940; J2270; J2405; J2543; J2916; J3370; J7030; J7040; J7050; J7512; P9016; U0003

== ENCOUNTER 2020-08-26 18:26 | Inpatient (IN) | payer OTHER, SELFPAY ==
--- OUTSIDE RECORDS SUMMARY | 2020-08-26 18:37 | XMS REPORT | Continuity of Care Document ---
:[address] [facility] t Address [address] [place] [address] Care Team Providers Name Role Phone Sharpless [...] HURT 00:00: Jona TOES 00 Active 12/27/2016 [facility] Jona ABDOMINAL Diagnosis Active 2011-042012-02-17 Memoria PAIN 0-26 10:42:00 l 00:00: [place] ABDOMINAL 00 PAIN Active 02/07/2012 [facility], [place] EGD Diagnosis Active 2011-042012-02-06 Mem oria 0-24 10:10:00 l EGD 06:00: Jona 00 Active 02/05/2012 [facility] BLOOD Diagnosis Active 2011-12-11 Mem oria SUGAR 8-16 11:15:00 l PROBLEM BLOOD 15:00: Jona SUGAR 00 PROBLEM Active 11/28/2011 [place] LEFT LOWER Diagnosis Active 2011-12-11 Memoria ABDOMINAL 7-12 10:48:00 l PAIN LEFT 08:00: Jona LOWER 00 ABDOMINAL PAIN Active 10/24/2011 [place] ABDOMINAL Diagnosis Active 2011-12-11 Memoria PAIN HIGH 2-08 11:09:00 l BLOOD 22:00: Jona SUGAR ABDOMINAL 00 PAIN HIGH BLOOD SUGAR Active 05/22/2011 [place] BLEEDING/ Diagnosis Active 2011-12-11 Memoria RT SIDE 1-24 11:06:00 l PAIN 08:00: Jona BLEEDING/ 00 RT SIDE PAIN Active 05/07/2011 [place] RIGHTABDOM Diagnosis Active 2011-04-19 Memoria INAL PAIN 1-06 20:37:00 l . AND 00:00: Jona BLOOD IN RIGHTABDOM 00 URINE INAL PAIN . AND BLOOD IN URINE Active 04/19/2011 [place] RIGHT Diagnosis Active 2011-12-20 Mem oria ABDOMINAL 1-06 13:03:00 l PAIN, RIGHT 00:00: Jona BLOOD IN ABDOMINAL 00 URINE PAIN, BLOOD IN URINE Active 04/19/2011 [place] LOWER ABD Diagnosis Active 2010-042011-12-11 Memoria PAIN/ HIGH 2-12 11:02:00 l SUGAR LOWER 00:00: [place] ABD PAIN/ 00 HIGH SUGAR Active 03/25/2011 [place] CHEST PAIN Diagnosis Active 2010-042011-02-11 Memoria AND 0-30 01:56:00 l TIGHTNESS CHEST 18:00: Jorge Luis n PAIN AND 00 TIGHTNESS Active 02/10/2011 [place] CHEST Diagnosis Active 2010-042011-02-15 Mem oria PAIN, 0-30 21:58:00 l DIZZINESS, CHEST 18:00: Eugenia nn HYPERGLYCE PAIN, 00 EB, UTI DIZZINESS, HYPERGLYCE EB, UTI Active 02/10/2011 [place] CHEST PAIN Diagnosis Active 2010-042011-01-15 Memoria 0-03 16:36:00 l CHEST 15:00: Jona PAIN 00 Active 01/14/2011 [place] RIGHT KNEE Diagnosis Active 2010-12-22 Memoria 1ST 3 TOES 9-10 13:04:00 l NUMB RIGHT 11:00: Jona KNEE 1ST 3 00 TOES NUMB Active 12/22/2010 [place] FACIAL Diagnosis Active 2010-12-22 Mem oria NECK 6 13:04:00 l CELLULITIS FACIAL 00:00: Herm ava NECK 00 CELLULITIS Active 10/08/2010 [place] FACIAL AND Diagnosis Active 2010-12-22 Memoria NECK PAIN 10-07 13:04:00 l FACIAL 06:00: Jona AND NECK 00 PAIN Active 10/07/2010 [place] SUGAR Diagnosis Active 2010-12-22 Mem oria HIGH,VAGIN 07-21 13:04:00 l AL SUGAR 00:00: [place] BLEEDING HIGH,VAGIN 00 AL BLEEDING Active 07/21/2010 [place] ABD PAIN Diagnosis Active 2010-12-22 M emoria 01-05 13:04:00 l ABD PAIN 00:00: Jorge Luis n 00 Active 01/05/2010 [facility] EAR PAIN Diagnosis Active 2010-12-22 M emoria 10-09 13:04:00 l EAR PAIN 19:00: Jorge Luis n 00 Active 10/09/2009 [place] UPPER Diagnosis Active 2010-12-22 Mem oria ABDOMINAL 09-20 13:04:00 l PAIN UPPER 14:00: [place] ABDOMINAL 00 PAIN Active 09/20/2009 [place] ABD PAIN, Diagnosis Active 2010-12-22 Memoria HIGH SUGAR 5-04 13:04:00 l ABD 00:00: [place]ona PAIN, HIGH 00 SUGAR Active 08/15/2009 [place] Abdominal Problem Active 2012-02-19 Me moria pain 09:23:16 l [place] Abdominal pain Active Problem 02/19/2012 [facility], [place] Cellulitis Problem Active 2012-02-19 M emoria 09:23:16 l [place] Cellulitis Active Problem 02/19/2012 [facility], [place] Chest pain Problem Active 2012-02-19 M emoria 09:23:16 l Chest Jona pain Active Problem 02/19/2012 [facility], [place] Hyperglyce Problem Active 2012-02-19 M emoria eb 09:23:16 l [place] Hyperglyce eb Active Problem 02/19/2012 [facility] [place] UTI - Problem Active 2012-02-19 Memor ia Urinary 09:23:16 l tract UTI - Jona infection Urinary tract infection Active Problem 02/19/2012 [facility] [place] Diabetes Problem Active 2017-03-01 Mem oria mellitus 04:36:24 l (disorder) Diabetes He rmann mellitus (disorder) Active Problem 03/01/2017 [facility] Restless Problem Active 2017-03-01 Mem oria legs 04:36:24 l (disorder) Restless He rmann legs (disorder) Active Problem 03/01/2017 [facility] Abdominal Problem Active 2017-03-01 Me moria pain 04:36:24 l (finding) [place] Abdominal pain (finding) Active Problem 03/01/2017 [facility] Chest pain Problem Active 2017-03-01 M emoria (finding) 04:36:24 l Chest Jona pain (finding) Active Problem 03/01/2017 [facility] Hyperglyce Problem Active 2017-03-01 M emoria eb 04:36:24 l (disorder) Jorge Luis n Hyperglyce eb (disorder) Active Problem 03/01/2017 [facility] Urinary Problem Active 2017-03-01 Nirmal feliz tract 04:36:24 l infectious Urinary Her pugh disease tract (disorder) infectious disease (disorder) Active Problem 03/01/2017 [facility] CHEST PAIN Diagnosis Active 2010-12-22 Memoria NOS 13:04:00 l CHEST Jona PAIN NOS Active [place] CELLULITIS Diagnosis Active 2010-12-22 Memoria NOS 13:04:00 l Jona CELLULITIS NOS Active [place] History of Past Illness Condition Condition Condition Status Onset Resolution Last Treating Co mments Source Name Details Category Date Date Treatment Clinician Date Hyperglyce Problem 2016-2017-03-01 2017-03-01 Memoria eb, - 04:36:24 04:36:24 l unspecifie 06:00: Jorge Luis n d Hyperglyce 00 eb, unspecifie d 02/25/2017 03/01/2017 [facility] Fever, Problem 2016-2017-03-01 2017-03-01 M emoria unspecifie 04-27 04:36:24 04:36:24 l d Fever, 06:00: [place] unspecifie 00 d 02/25/2017 03/01/2017 [facility] Radiculopa Problem 2016-2017-02-28 2017-02-28 Memoria thy, 1-14 05:26:25 05:26:25 l cervical 06:00: [place] region Radiculopa 00 thy, cervical region 02/25/2017 02/28/2017 [facility] Displaced Problem 2016-2016-12-30 2016-12-30 Memoria unspecifie 12-27 05:13:20 05:13:20 l d fracture 05:00: Jorge Luis n of right Displaced 00 lesser unspecifie toe(s), d fracture initial of right encounter lesser for closed toe(s), fracture initial encounter for closed fracture 12/30/2016 [facility] Allergies, Adverse Reactions, Alerts Allergy Allergy Status Severity Reaction(s) Onset Inactive Treating Comm ents Source Name Type Date Date Clinician Methylph [facility]ensi [facility] - adverse [facility]: [facility] reaction [facility] Center s Ritalin Ritalin Active Emmanuelle Tenorio Social History Social Habit Start Date Stop Date Quantity Comments Source Sex Assigned At [facility] Tobacco use and 2017-10-06 2017-10-06 Never used [facility] - exposure 00:00:00 00:00:00 [facility] Alcohol intake 2017-10-06 2017-10-06 Current [facility] es - 00:00:00 00:00:00 non-drinker of [facility] nter alcohol (finding) Social History 2017-02-03 2017-02-03 [facility] hermila 15:24:44 15:24:44 Smoking Status Start Date Stop Date Source [facility] sm[facility] Medications Ordered Filled Start Stop Current Ordering Indication Dosage Frequency Signature Comments Components Source Medication Medication Date Date Medication? Clinician (SIG) Name Name rOPINIRole Yes 1mg [id number] Take [address] [facility] [address] (REQUIP) 1 3- [id number] by mouth 3 [facility] - MG tablet 12:00: 3D (three) Medic al 28 times Center daily. pregabalin Yes 50mg [id number] Take [address] [facility] [address] (LYRICA) 50 3-26 [id number] by mouth 3 [facility] - MG capsule 12:00: 3D (three) Medi steven 28 times Center daily. GI cocktail 2016-04 No Notes: Nirmal feliz 1-15 G.I. 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 ibuprofen 2016-04 Yes 800 mg = 1 Me moria 800 mg oral 1-14 tab, PO, l tablet 07:20: Q8H, PRN Jona 00 Pain, Take with food, X 5 day, # 15 tab, 0 Refill(s) Acetaminoph 2017-1 Yes 1 - 2 tab, Memoria en [...] Memoria -14 (Same as: l 05:48: Valium) Jona 00 Ketorolac 2016-04 No 4 days Memor ia -14 l 05:48: MEDICATION WASTE Product Size: 30 mg Product Wasted: ___ mg Ciprofloxac 2016-04 Yes 500 mg = 1 Memoria in 500 MG 0-15 tab, PO, l Oral Tablet 14:57: Q12H, for H ermann [Cipro] 00 UTI, X 3 day, # 6 tab, 0 Refill(s), Pharmacy: [id number] Humalog 100 2016-04 Yes 4 unit, Mem oria units/mL 0-15 SUB-Q, l 14:48: TID-Before 00 Meals, hold insulin injection if your blood sugar is less than 140 mg/dL., # 10 mL, 0 Refill(s), Pharmacy: [facility] #[id number] pantoprazol 2016-04 Yes 40 mg = 1 M emoria e 40 MG 0-15 tab, PO, l Enteric 14:48: Daily, # Jorge Luis n Coated 00 30 tab, 0 Tablet Refill(s), [Protonix] Pharmacy: [facility] #[id number] Calcium 2016-04 Yes 500 mg = 1 Nirmal feliz Carbonate 0-15 tab, PO, l 500 MG 14:48: TID, # 6 [place] Chewable 00 tab, 0 Tablet Refill(s), Pharmacy: [facility] #[id number] Insulin 2016-04 Yes 15 unit, Memori a Glargine 0-15 SUB-Q, l 100 UNT/ML 14:48: Daily, # Her pugh Injectable 00 10 mL, 0 Solution Refill(s), [Lantus] Pharmacy: [facility] #[id number] Calcium 2016-04 No Notes: Memoria Gluconate 0-15 WASTE: F/P l 14:47: - Sink; E Jona 00 - Municipal Trash Bin Calcium 2016-04 No Notes: Memoria Carbonate 0-15 (Same As: l 14:00: Tums) [place] Calcium Carbonate 500 mg = 200 mg [...] Memoria 0-15 (Same as: l 02:00: Requip) [place] 00 Lyrica 2016-04 No Notes: Memoria 0-15 (Same as: l 02:00: Lyrica) [place] 00 Calcium 2016-04 No Notes: Memoria Carbonate 0-14 (Same As: l 22:40: Tums) [place] Calcium Carbonate 500 mg = 200 mg elemental calcium Dose = mg calcium carbonate ( mg elemental calcium) Protonix 2016-04 No Notes: Memoria 0-14 Tablet l 22:00: should not [place] 00 be chewed or crushed. (Same as: Protonix) Magnesium 2016-04 No Notes: Memori a Oxide 0-14 (Same as: l 22:00: Mag-Ox [place] 00 400) Magnesium oxide 115tx=008o g elemental magnesium Dose=____m g magnesium oxide (___mg elemental magnesium) Ketorolac 2016-04 No 4 days Memor ia 0-14 l 17:02: MEDICATION [place] 00 WASTE Product Size: 30 mg Product Wasted: ___ mg Docusate 2016-04 No Notes: Memoria 0-14 (Same as: l 14:00: Colace) [place] 00 (Do Not Crush) Insulin 2016-04 No [...] feliz 0-14 (Same As: l 07:00: Rocephin). [place] 00 Use with 100 mL NS and infuse over 30 min MEDICATION WASTE Product Size: 1000 mg Product Wasted: ___ mg Glucagon 2016-04 No 1 mg, Memoria 0-14 Route: IM, l 06:35: Drug form: Jona 00 PDR/INJ, PRN, Dosing Weight 51.449, kg, PRN Blood Glucose Results, Start date: 01/25/17 1:35:00 CDT, Duration: 30 day, Stop date: 02/24/17 0:34:00 HAND PAINTER Insulin 2016-04 No 60 Memoria Lispro 0-14 units) l 06:35: WASTE: F/P [place] 00 - Black; E - Municipal Trash Bin Stable for 28 days at room temperatur e. Expires in days from ____Date Dextrose 2016-04 No 25 gm, 50 Nirmal feliz 50% Syringe 0-14 mL, Route: l 06:35: IVP, Drug [place] 00 Form: INJ, Dosing Weight 51.449, kg, PRN, PRN Blood Glucose Results, Start date: 01/25/17 1:35:00 CDT, Duration: 30 day, Stop date: 02/24/17 0:34:00 HAND PAINTER Hydralazine 2016-04 No Notes: Nirmal feliz 0-14 (Same as: l 06:35: Apresoline ) Push over 5 minutes Acetaminoph 2016-04 No Notes: Do M emoria en 0-14 not exceed l 06:32: 4 gm/day. [place] (Same as: Tylenol) Acetaminoph 2016-04 No Notes: Nirmal feliz en 325 MG / 0-14 (Same as: l Hydrocodone 06:32: [place] Eugenia nn Bitartrate 00 325/5) Do 5 [...] 01/25/17 1:32:00 CDT, Stop date: 02/24/17 1:31:00 HAND PAINTER Saline 2016-04 No Notes: Memoria Flush 0.9% [...] Chloride 0-14 3000 l 0.9% 03:15: ml/hr, [place] (Bolus) IV 00 Infuse Over: 1 hr, [...] Notes: Memoria 0-14 (Same l 02:12: as:MORPhin [place] 00 e Sulfate) Acetaminoph No 1 - 2 tab, Memoria en 300 MG / 12-27 PO, Q4H, l Codeine 05:54: PRN Pain, Eugenia nn Phosphate 00 X 2 day, # 30 MG Oral 30 tab, 0 Tablet Refill(s) [Tylenol with Codeine #3] Acetaminoph No Notes: Nirmal feliz en 325 MG / 15 (Same as: l Hydrocodone 04:47: [place] Eugenia nn Bitartrate 00 325/5) Do 5 MG Oral not exceed Tablet 4gm/day of [[place]aug[place] acetaminop 5/325] hen. insulin Yes QD Inject [...] Nirmal feliz 11-28 on Allowed l 03:29: [place] Insulin No Vimi 7 unit, Memoria regular [...] 11-28 Roche Route: l 02:51: IVP, Drug Jona 00 Form: INJ, kg, PRN, PRN Line Flush, Start date: 11/28/11 21:51:00, Duration: 30 day, Stop date: 12/28/11 21:50:00 Haug[place] 5/325 2011-0 Yes Juan 1-2 tab, M emoria oral tablet 7-13 Keith PO, Q4-6H, l 06:12: Yeaton PRN, 15 [place] 25 tab, Pain, Substituti on Allowed, Soft [...] Keith Rate: l 0.9% 03:06: Yeaton 1,000 [place] (Bolus) IV 00 ml/hr, 1,000 mL Infuse over: 1 hr, Route: IVPB, Dosing Weight 54.545 kg, Total Volume: 1,000, Bolus Dose, Priority: STAT, Start date: 10/24/11 22:06:00, Duration: 1 doses or times, Stop date: 10/24/11 23:05:00 Saline 2012-0 No Juan 5 ml, Memoria Flush 0.9% [...] Vimi 2 mg, 0.4 Nirmal feliz Sulfate 2 Roche mL, Route: l 05:04: IVP, Drug [place] 00 form: INJ, ONCE, Priority: STAT, Start date: 05/22/11 23:04:00, Stop date: 05/22/11 23:04:00 ondansetron 2011- No Vimi 4 mg, 2 Mem oria 2 Roche mL, Route: l 05:04: IVP, Drug form: INJ, ONCE, Priority: STAT, Start date: 05/22/11 23:04:00, Stop date: 05/22/11 23:04:00 Sodium 2011-0 No Vimi 500 mL, Memoria Chloride 05-23 Roche Rate: l 0.9% 05:04: 1,000 [place] (Bolus) IV 00 ml/hr, 500 mL Infuse [...] tab, PO, l tablet 02:07: Q12H, 28 [place] 41 tab, Substituti on Allowed, TAB Pyridium [...] ing Nausea and Vomiting, Substituti on Allowed Haugan Yes Juan 1 tab, PO, Memor ia [...] Keith 0.1 mL, l 05:31: Yeaton Route: [place] 00 IVP, Drug form: SOLN, ONCE, Priority: [...] 2011-0 No Juan 30 mg, Memor ia 07 Keith Route: l 03:30: Yeaton IVP, [...] tab, PO, M emoria 5/500 oral 2-13 [place] Phelps Q4-6H, l tablet 05:57: PRN, 24 [...] Mila 10 unit, Mem oria regular 2-13 [place] Phelps 0.1 mL, l 03:16: Route: Jona 00 IVP, Drug form: SOLN, ONCE, Priority: STAT, Start date: 03/25/11 21:16:00, Stop date: 03/25/11 21:16:00 Omnipaque 2010-04 Yes Mila 30,000 mg, Memoria 300 2-13 [place] Phelps 100 mL, l 03:15: Route: IV, [place] 00 Drug form: SOLN, ONCE, Start date: 03/25/11 21:15:00, Stop date: 03/25/11 21:15:00 Saline 2010-04 No Mila 5 ml, Memoria Flush 0.9% 2-13 Zay Phelps Route: l 02:19: IVP, Drug Form: INJ, PRN, PRN Line Flush, Start date: 03/25/11 20:19:00, Duration: 30 day, Stop date: 04/24/11 20:18:00 ondansetron 2010-04 No Mila 4 mg, 2 Memoria 2-13 [place] Phelps mL, Route: l 02:19: IVP, Drug form: INJ, ONCE, Priority: STAT, Start date: 03/25/11 20:19:00, Stop date: 03/25/11 20:19:00 morphine 2010-04 No Mila 4 mg, 0.8 M emoria Sulfate 2-13 [place] Phel[place] mL, Route: l 02:19: IVP, Drug [...] mg tablet, 0-31 Daily, l chewable 17:29: tabAyanaJona 44 Substituti on Allowed, CHEWTAB Cipro 2010-04 No Dk 250 mg, 1 Memori a 0-31 Ari tab, l 16:00: Jonathan Route: PO, Drug form: TAB, [id number], Start date: 02/11/11 11:00:00, Duration: 30 day, Stop date: 03/12/11 23:00:00 magnesium 2010-04 No Dakota 400 mg, 1 M emoria oxide 0-31 Minhvu Victoriano tab, l 14:00: [place] Route: PO, Drug form: TAB, Daily, Start date: 02/11/11 9:00:00, Duration: 30 day, Stop date: 03/12/11 9:00:00 Lantus 2010-04 No Dk 70 unit, Memori a 0-31 Ari Route: l 14:00: Jonathan SUB-Q, Drug form: SOLN, Daily, Start date: 02/11/11 [...] PO, Herm ava 00 Drug form: TAB, [id number], Start date: 02/11/11 3:00:00, Duration: 30 day, Stop date: 03/12/11 15:00:00 acetaminoph 2010-04 No Dk 1 tab, Mem oria en-hydrocod 0-31 Ari Route: PO, l one 07:25: Jonathan Drug Form: Herm ava 00 TAB, Q4H, PRN Pain Score 1-5, Start date: 02/11/11 2:25:00, Duration: 30 day, Stop date: 03/13/11 2:24:00 BD 2010-04 No Dk 15 mL, Memoria Posiflush 0-31 Air Route: l SF 07:22: Jonathan IVP, Drug [...] mL, l Sliding 07:05: Jonathan Route: Eugenia muñoz Scale - Low 00 SUB-Q, Drug form: [...] 0.4 mg, 1 Memoria in SL Tab Ari tab, l 07:05: Jonathan Route: SL, [...] No Dk 650 mg, 2 Memoria en Ari tab, l 07:05: Jonathan Route: PO, Herm ava 00 Drug form: TAB, Q4H, PRN Headache, Start date: 02/11/11 2:05:00, Duration: 30 day, Stop date: 03/13/11 2:04:00 diphenhydrA 2010-04 No Dk 25 mg, 1 M emoria MINE Ari tab, l 07:05: Jonathan Route: PO, Herm ava 00 Drug form: TAB, Bedtime, PRN Insomnia, Start date: 02/11/11 2:05:00, Duration: 30 day, Stop date: 03/13/11 2:04:00 acetaminoph 2010-04 No Dk 1 tab, Mem oria en-hydrocod Ari Route: PO, l one 325 07:05: [...] Shauna mL, Route: l 05:37: IVP, Drug [place] 00 form: INJ, ONCE, Priority: STAT, Start date: 02/11/11 0:37:00, Stop date: 02/11/11 0:37:00 Visipaque 2010-04 No Penelope S 48,000 mg, Memoria 0-31 Shauna 150 mL, l 04:55: Route: IV, Jona 00 Drug form: INJ, ONCE, Start date: 02/10/11 23:55:00, Stop date: 02/10/11 23:55:00 Zofran 2010-04 No Penelope S 4 mg, 2 Memori a 0-31 Shauna mL, Route: l 04:28: IVP, Drug [place] form: INJ, ONCE, Start date: 02/10/11 23:28:00, Stop date: 02/10/11 23:28:00 Cipro 2010-04 No Penelope S 400 mg, Memoria 0-31 Shauna Route: l 04:08: IVPB, Jona 00 ONCE, Priority: STAT, Start date: 02/10/11 23:08:00, Stop date: 02/10/11 23:08:00 Insulin 2010-04 No Penelope S 10 unit, Nirmal feliz regular 0-31 Shauna Route: l 03:56: SUB-Q, [place] 00 ONCE, Priority: STAT, Start date: 02/10/11 [...] Shauna Route: l SF 02:55: IVP, Drug [place] 00 Form: INJ, PRN, PRN Line Flush, [...] Shauna Route: PO, l 02:47: Drug form: [place] 00 TAB, ONCE, (Hold if SBP < [...] Q12H, l tablet 15:37: Edwards 30 tab, [place] 31 Substituti on Allowed, TAB aspirin 325 2010-04 Yes Giovani 9,750 mg, Memoria mg tablet, 0-04 Xiaoguang 30 tab, l enteric 15:37: Edwards PO, Daily, Herm ava coated 18 30 tab, Substituti on Allowed, ECTAB metoprolol 2010-04 No Giovani 12.5 mg, Me moria 0-04 Xiaoguang 0.5 tab, l 15:36: Edwards Route: PO, [place] 00 Drug form: TAB, Q12H, Priority: NOW, Start date: 01/15/11 10:36:00, Duration: 30 day, Stop date: 02/14/11 9:00:00 Fioricet 2010-04 Yes Tajuddin 1 tab, PO, Memoria oral tablet 0-04 Qasimali Q4H, PRN, l 14:18: Medina 30 tab, [place] 21 Headache, Substituti on Allowed, Maintenanc e, [...] Victoriano 0.7 mL, l 02:00: Rad[place] Route: [place] 00 SUB-Q, Drug form: INJ, Bedtime, Start [...] Route: IM, l 00:22: [place] Drug form: [place] 00 PDR/INJ, PRN, PRN Blood Glucose Results, [...] Victoriano tab, l 00:21: [place] Route: SL, [place] 00 Drug form: TAB, Q5Min, PRN Chest [...] Q4H, PRN, l tablet 18:32: 20 tab, [place] 59 Pain, Substituti on Allowed acetaminoph Yes [...] Systolic (mm Hg) 2017-02-26 06:50:00 Nirmal rial [place] Diastolic (mm Hg) 2017-02-26 06:50:00 Mem orial [place] Respitory Rate 2017-02-26 06:50:00 Memori al Jona Temperature Oral (F) 2017-02-26 06:50:00 97.6 F [facility] [place] Heart Rate 2017-02-26 06:50:00 [facility] [place] Respitory Rate 2017-02-26 04:30:00 Memori al [place] Systolic (mm Hg) 2017-02-26 04:30:00 Nirmal rial [place] Diastolic (mm Hg) 2017-02-26 04:30:00 Mem orial [place] Heart Rate 2017-02-26 04:30:00 [facility] [place] Temperature Oral (F) 2017-02-26 00:55:00 98.8 F [facility] [place] Weight 2017-02-26 00:55:00 [facility] [place] BMI Calculated 2017-02-26 00:55:00 Memori al [place] Height 2017-02-26 00:55:00 162.56 cm [facility] [place] Systolic (mm Hg) 2017-02-26 00:55:00 Nirmal rial [place] Diastolic (mm Hg) 2017-02-26 00:55:00 Mem orial [place] Heart Rate 2017-02-26 00:55:00 [facility] [place] Respitory Rate 2017-02-26 00:55:00 Memori al [place] Respitory Rate 2017-02-25 07:35:00 Memori al [place] Systolic (mm Hg) 2017-02-25 07:35:00 Nirmal rial Jona Diastolic (mm Hg) 2017-02-25 07:35:00 Mem orial [place] Temperature Oral (F) 2017-02-25 07:35:00 98.2 F [facility] [place] Heart Rate 2017-02-25 07:35:00 [facility] [place] BMI Calculated 2017-02-25 05:05:00 Memori al [place]ona Weight 2017-02-25 05:05:00 [facility] [place] Height 2017-02-25 05:05:00 162.56 cm [facility] [place] Heart Rate 2017-02-25 05:05:00 [facility] [place] Respitory Rate 2017-02-25 05:05:00 Memori al [place] Temperature Oral (F) 2017-02-25 05:05:00 97.8 F [facility] [place] Systolic (mm Hg) 2017-02-25 05:05:00 Nirmal rial [place] Diastolic (mm Hg) 2017-02-25 05:05:00 Mem orial [place]ona Weight 2017-02-25 04:55:00 [facility] [place] Height 2017-02-25 04:55:00 167.64 cm [facility] [place] Temperature Oral (F) 2017-02-25 04:55:00 97.8 F [facility] [place] BMI Calculated 2017-02-25 04:55:00 Memori al [place] Systolic (mm Hg) 2017-02-25 04:55:00 Nirmal rial [place] Diastolic (mm Hg) 2017-02-25 04:55:00 Mem orial [place] Respitory Rate 2017-02-25 04:55:00 Memori al [place] Heart Rate 2017-02-25 04:55:00 [facility] [place] Temperature Oral (F) 2017-01-26 16:47:00 98.5 F [facility] [place] Heart Rate 2017-01-26 16:47:00 [facility] [place] Respitory Rate 2017-01-26 16:47:00 Memori al [place] Systolic (mm Hg) 2017-01-26 16:47:00 Nirmal rial [place] Diastolic (mm Hg) 2017-01-26 16:47:00 Mem orial [place] Heart Rate 2017-01-26 12:26:00 [facility] [place] Respitory Rate 2017-01-26 12:26:00 Memori al [place] Temperature Oral (F) 2017-01-26 12:26:00 98.4 F [facility] [place] Systolic (mm Hg) 2017-01-26 12:26:00 Nirmal rial [place] Diastolic (mm Hg) 2017-01-26 12:26:00 Mem orial [place] Temperature Oral (F) 2017-01-26 09:50:00 98.1 F [facility] [place] Heart Rate 2017-01-26 09:50:00 [facility] [place] Systolic (mm Hg) 2017-01-26 09:50:00 Nirmal rial [place]ona Diastolic (mm Hg) 2017-01-26 09:50:00 Mem orial [place] Respitory Rate 2017-01-26 09:50:00 Memori al [place] Height 2017-01-25 05:58:00 157.48 cm [facility] [place] Weight 2017-01-25 05:58:00 [facility] [place] BMI Calculated 2017-01-25 05:58:00 Memori al [place] Weight 2017-01-25 02:01:00 [facility] [place] BMI Calculated 2017-01-25 02:01:00 Memori al [place] Height 2017-01-25 02:01:00 162.56 cm [facility] [place] Systolic (mm Hg) 2016-12-27 06:03:00 Nirmal rial [place] Diastolic (mm Hg) 2016-12-27 06:03:00 Mem orial [place] Respitory Rate 2016-12-27 06:03:00 Memori al [place] Heart Rate 2016-12-27 06:03:00 [facility] [place] Temperature Oral (F) 2016-12-27 06:03:00 98.3 F [facility] [place] Temperature Oral (F) 2016-12-27 04:22:00 98.4 F [facility] [place] Respitory Rate 2016-12-27 04:22:00 Memori al [place] Systolic (mm Hg) 2016-12-27 04:22:00 Nirmal rial [place] Diastolic (mm Hg) 2016-12-27 04:22:00 Mem orial [place] BMI Calculated 2016-12-27 04:22:00 Memori al [place] Weight 2016-12-27 04:22:00 [facility] [place] Heart Rate 2016-12-27 04:22:00 [facility] [place] Height 2016-12-27 04:22:00 162.56 cm [facility] [place] Height 2012-02-06 15:19:00 162.56 cm [facility] [place] Weight 2012-02-06 15:19:00 [facility] [place] Height 2011-11-29 02:35:00 162.56 cm [facility] [place] Weight 2011-11-29 02:35:00 [facility] [place] Height 2011-10-25 02:45:00 162.56 cm [facility] [place] Weight 2011-10-25 02:45:00 [facility] Height 2011-05-23 04:48:00 162.56 cm [facility] Weight 2011-05-23 04:48:00 [facility] Temperature Oral (F) 2011-05-08 02:38:00 98.5 F [facility] Diastolic (mm Hg) 2011-05-08 02:38:00 [facility] Systolic (mm Hg) 2011-05-08 02:38:00 [facility] Heart Rate 2011-05-08 02:38:00 [facility] Respitory Rate 2011-05-08 02:38:00 [facility] Weight 2011-05-08 00:09:00 [facility] Height 2011-05-08 00:09:00 162.56 cm [facility] Temperature Oral (F) 2011-05-08 00:09:00 98.6 F [facility] Diastolic (mm Hg) 2011-05-08 00:09:00 [facility] Systolic (mm Hg) 2011-05-08 00:09:00 [facility] Heart Rate 2011-05-08 00:09:00 [facility] Respitory Rate 2011-05-08 00:09:00 [facility] Respitory Rate 2011-04-20 07:05:00 [facility] Heart Rate 2011-04-20 07:05:00 [facility] Diastolic (mm Hg) 2011-04-20 07:05:00 [facility] Systolic (mm Hg) 2011-04-20 07:05:00 [facility] Diastolic (mm Hg) 2011-04-20 06:01:00 [facility] Heart Rate 2011-04-20 06:01:00 [facility] Systolic (mm Hg) 2011-04-20 06:01:00 [facility] Respitory Rate 2011-04-20 06:01:00 [facility] Weight 2011-04-20 02:25:00 [facility] Systolic (mm Hg) 2011-04-20 02:25:00 [facility] Temperature Oral (F) 2011-04-20 02:25:00 98.0 F [facility] Respitory Rate 2011-04-20 02:25:00 [facility] Heart Rate 2011-04-20 02:25:00 [facility] Diastolic (mm Hg) 2011-04-20 02:25:00 [facility] Temperature Oral (F) 2011-03-26 06:05:00 98.0 F [facility] Respitory Rate 2011-03-26 06:05:00 [facility] Heart Rate 2011-03-26 06:05:00 [facility] Systolic (mm Hg) 2011-03-26 06:05:00 [facility] Diastolic (mm Hg) 2011-03-26 06:05:00 [facility] Height 2011-03-26 01:58:00 160.02 cm [facility] Weight 2011-03-26 01:58:00 [facility] Temperature Oral (F) 2011-03-26 01:58:00 99.0 F [facility] Diastolic (mm Hg) 2011-03-26 01:58:00 [facility] Systolic (mm Hg) 2011-03-26 01:58:00 [facility] Respitory Rate 2011-03-26 01:58:00 [facility] Heart Rate 2011-03-26 01:58:00 [facility] Diastolic (mm Hg) 2011-02-11 15:37:00 [facility] Respitory Rate 2011-02-11 15:37:00 [facility] Systolic (mm Hg) 2011-02-11 15:37:00 [facility] Heart Rate 2011-02-11 15:37:00 [facility] Temperature Oral (F) 2011-02-11 15:37:00 98.1 F [facility] Diastolic (mm Hg) 2011-02-11 11:53:00 [facility] Systolic (mm Hg) 2011-02-11 11:53:00 [facility] Temperature Oral (F) 2011-02-11 11:53:00 97.5 F [facility] Heart Rate 2011-02-11 11:53:00 [facility] Respitory Rate 2011-02-11 11:53:00 [facility] Height 2011-02-11 07:38:00 162.56 cm [facility] Weight 2011-02-11 07:38:00 [facility] Respitory Rate 2011-02-11 07:38:00 [facility] Temperature Oral (F) 2011-02-11 07:38:00 98.0 F [facility] Heart Rate 2011-02-11 07:38:00 [facility] Systolic (mm Hg) 2011-02-11 07:38:00 [facility] Diastolic (mm Hg) 2011-02-11 07:38:00 [facility] Weight 2011-02-11 02:32:00 [facility] Height 2011-02-11 02:32:00 162.56 cm [facility] Diastolic (mm Hg) 2011-01-15 16:44:00 [facility] Systolic (mm Hg) 2011-01-15 16:44:00 [facility] Temperature Oral (F) 2011-01-15 16:44:00 97.0 F [facility] Heart Rate 2011-01-15 16:44:00 [facility] Respitory Rate 2011-01-15 16:44:00 [facility] Temperature Oral (F) 2011-01-15 12:18:00 97.2 F [facility] Respitory Rate 2011-01-15 12:18:00 [facility] Heart Rate 2011-01-15 12:18:00 [facility] Diastolic (mm Hg) 2011-01-15 12:18:00 [facility] Systolic (mm Hg) 2011-01-15 12:18:00 [facility] Respitory Rate 2011-01-15 09:30:00 [facility] Systolic (mm Hg) 2011-01-15 09:30:00 [facility] Heart Rate 2011-01-15 09:30:00 [facility] Temperature Oral (F) 2011-01-15 09:30:00 97.9 F [facility] Diastolic (mm Hg) 2011-01-15 09:30:00 [facility] Height 2011-01-15 01:35:00 162.56 cm [facility] Weight 2011-01-15 01:35:00 [facility] Height 2011-01-14 20:07:00 162.56 cm [facility] Weight 2011-01-14 20:07:00 [facility] Systolic (mm Hg) 2010-12-22 18:51:00 [facility] Diastolic (mm Hg) 2010-12-22 18:51:00 [facility] Peripheral Pulse Rate 2010-12-22 18:51:00 [facility] Respitory Rate 2010-12-22 18:51:00 [facility] Height 2010-12-22 16:57:00 162.56 cm [facility] Weight 2010-12-22 16:57:00 [facility] Temperature Oral (F) 2010-12-22 16:57:00 98.2 F [facility] Respitory Rate 2010-12-22 16:57:00 [facility] Peripheral Pulse Rate 2010-12-22 16:57:00 [facility] Diastolic (mm Hg) 2010-12-22 16:57:00 [facility] Systolic (mm Hg) 2010-12-22 16:57:00 [facility] Procedures Procedure Date / Time Performed Performing Clinician Maegan e Appendectomy [facility] Cholecystectomy [facility] Partial hyste[facility] rmann Plan of Care Planned Activity Planned Date Details Comments Source Future Scheduled 2019-12-[address] [facility] - Test 00:00:00 (#1) [code = [facility] INFLUENZA VACCINE (#1)] Future Scheduled [address] [facility] Test 00:00:00 (procedure) [code = [facility] 68773898] Future Scheduled [address] [facility] 00:00:00 malignant neoplasm [facility] enter of cervix (procedure) [code = 566126884] Future Scheduled [address] [facility] - Test 00[facility]00:00 malignant neoplasm [facility] enter of breast (procedure) [code = 076201830] Future Scheduled [address] [facility] - Test 00:00:00 malignant neoplasm [facility] enter of colon (procedure) [code = 169051631] Encounters Start End Encounter Admission Attending Care Care Encounter Source Date/Time Date/Time Type Type Clinicians Facility Department ID 2018-11-26 2018-11-26 [facility] [id number] 11:32:46 15:11:00 Edgard Medley [id number] [place] [id number] [place] [id number] 2018-11-26 2018-11-26 Orders Doctor MIKE [id number] 00:00:00 00:00:00 Only Unassigned, [place] [id number] [facility] [id number] 2017-02-25 2017-02-26 Outpatient Quezada, 2.16.840. 2.16.840.1. 4 [id number] 18:38:00 00:55:00 Rudolph [id number] 03 [place] 3.615.120 5.120 2017-02-24 2017-02-25 Outpatient Quezada, 2.16.840. 2.16.840.1. 4 [id number] 22:49:00 01:35:00 Rudolph [id number] 02 [place] 3.615.120 5.120 2017-01-24 2017-01-26 Outpatient Kayla, 2.16.840. 2.16.840.1 . [id number] 20:53:00 14:35:00 Greg Giron [id number] 01 3.615.120 5.120 2016-12-26 2016-12-27 Outpatient Davis, 2.16.840. 2.16.840.1. 4 [id number] 23:03:00 01:05:00 Moise Rojas [id number] 00 3.615.120 5.120 Results Test Description Test Time Test Comments Results Result Comments Source POCT-GLUCOSE METER 2017-10-07 11:53:00 Test Item Value Reference Range Interpretation Comme nts POC-GLUCOSE METER (BEAKER) (test 277 mg/dL 70-110 H TESTED AT [address] POINT code = 1538) [address] [facility] [address] POCT-GLUCOSE [id number] 11:53:00 Test Item Value Reference Range Interpretation Comments POC-GLUCOSE METER 411 mg/dL 70-110 HH TESTED AT [address] ([facility]) (test code [facility] = 1538) [address] RAD, SPINE, CERVICAL, 2 OR 3 [id number] 23:46:00Reason for exam:->neck painFINAL REPORT RAD, SPINE, [...] Grayson Verified Date/Time: 10/06/2017 23:46:30 Reading Location: [address] Transitional Reading Room CT, SPINE, CERVICAL, [...] evaluation as clinically warranted. Signed: Clarence [facility] Verified Date/Time: 10/06/2017 23:44:40 Reading Location: [address] Transitional Reading Room CT, BRAIN, WITHOUT [...] MDReport Verified Date/Time: 10/06/2017 23:24:44 Reading Location: [address] Reading Room TROPONIN I 2017-10-06 22:56:00 [...] acute neurological disease, and persistent tachyarrhythmia.COMPREHENSIVE METABOLIC [id number] 22:50:00 Test Item Value Reference Range Interpretation [...] S NOT APPLICABLE FOR DIALYSIS PATIEN TS. [id number] 22:42:00 Test Item Value Reference Range Interpretation Comments AMYLASE (BEAKER) (test code = 349) 58 U/L 30-110 CBC W/PLT COUNT & AUTO [id number] 22:22:00 Test Item Value Reference Range Interpretation [...] 0.00-0.20 (test code = 417) URINALYSIS W/ [id number] 22:09:00 Test Item Value Reference Range Interpretation [...] code = 1663) SOURCE(BEAKER) (test code = 4295) POCT-GLUCOSE [id number] 07:19:00 Test Item Value Reference Range Interpretation Comments POC-GLUCOSE METER 241 mg/dL 70-110 H TESTED AT [address] ([facility]) (test code [facility] = 1538) [address] CT, [id number] 19:16:00FINAL REPORT CT OF THE ABDOMEN AND [...] MDReport Verified Date/Time: 09/22/2017 19:16:29 Reading Location: [facility] C0[facility] Consult Reading Room BASI METABOLIC [id number] 17:37:00 Test Item Value Reference Range Interpretation [...] NOT APPLICABLE FOR DIALYSIS PATIEN TS. TROPONIN [id number] 17:07:00 Test Item Value Reference Range Interpretation [...] (test code = 749) 26 U/L 6-51 [id number] 16:51:00 Test Item Value Reference Range Interpretation Comments AMYLASE (BEAKER) (test 32 U/L 30-110 Speci men markedly code = 349) hemolyzed URINALYSIS W/ [id number] 16:21:00 Test Item Value Reference Range Interpretation [...] = 2795) CBC W/PLT COUNT & AUTO [id number] 16:15:00 Test Item Value Reference Range Interpretation [...] L 0.00-0.20 (test code = 417) POCT-GLUCOSE [id number] 15:36:00 Test Item Value Reference Range Interpretation Comments POC-GLUCOSE METER 284 mg/dL 70-110 H TESTED AT [address] ([facility]) (test code [facility] [place] = 1538) [address] CT, [id number] 15:32:00Reason for exam:->LLQ ABD PAINIs the patient [...] MDReport Verified Date/Time: 07/07/2017 15:32:20 Reading Location: [facility] C013Y CT Body Reading Room LIPASE 2017-07-07 14:41:00 Test Item Value Reference Range Interpretation Comments LIPASE (BEAKER) (test code = 749) 32 U/L 6-51 COMPREHENSIVE METABOLIC [id number] 14:40:00 Test Item Value Reference Range Interpretation [...] NOT APPLICABLE FOR DIALYSIS PATIEN TS. POCT-GLUCOSE [id number] 14:10:00 Test Item Value Reference Range Interpretation Comments POC-GLUCOSE METER 352 mg/dL 70-110 H TESTED AT [address] (BEAKER) (test code [address]INT [address] [facility] [place] = 1533) [address] CBC W/PLT COUNT & AUTO [id number] 13:30:00 Test Item Value Reference Range Interpretation [...] 0.00-0.20 (test code = 417) URINALYSIS W/ [id number] 13:01:00 Test Item Value Reference Range Interpretation [...] 1663) SOURCE(BEAKER) (test code = 2795) KETONE, [id number] 12:58:00 Test Item Value Reference Range Interpretation Comments KETONES, BLOOD (BEAKER) (test code 0.1 mmol/L <0.4 = 1103) BLOOD GAS, [id number] 12:48:00 Test Item Value Reference Range Interpretation [...] (test code = 1819) 37.0 % POCT-GLUCOSE [id number] 12:04:00 Test Item Value Reference Range Interpretation Comments POC-GLUCOSE METER > mg/dL 70-110 HH OUTSIDE ME ASURING (BEAKER) (test code [facility] = 1538) [facility] [address] BACTERIAL - [id number] 03:02:00Negative (02/25/17 9:02 PM)[facility] [id number] 03:02:00 Test Item Value Reference Range Interpretation Comments Tube Num CSF (test code = Tube Num CSF) 1 1 [facility] [id number] 03:02:00Clear (02/25/17 9:02 PM)[facility] [id number] 03:02:00Colorless (02/25/17 9:02 PM)[facility] LXIORF1558-13-01 03:02:00Colorless (02/25/17 9:02 PM)[facility] RMLJTZ0718-70-48 03:02:002[facility] XLFJBB7739-33-68 03:02:001[facility] HVNOKB0131-30-03 03:02:001[facility] MNQXUQ9249-25-79 03:02:002[facility] VBFKPJ0782-14-37 03:02:00 Colorless (02/25/17 9:02 PM)[facility] [id number] 03:02:00Clear (02/25/17 9:02 PM)[facility] [id number] 03:02:00 Test Item Value Reference Range Interpretation Comments Tube Num CSF (test code = Tube Num CSF) 4 1 [facility] MYICFM3130-11-14 03:02:00Colorless (02/25/17 9:02 PM) [facility] JGYBSP9658-88-83 03:02:20542Nzxfsccd HermannB[facility] FLUIDS 2017-02-26 03:02:0055[facility]annFUNGAL - [id number] 03:02:00 Negative (02/25/17 9:02 PM)[facility] RyyjpeuKYRZEYTSTS4706-14-93 03:02:00Non Reactive (02/25/17 9:02 PM)[facility]annMOLECULAR GGIVZVAGPP0792-54-45 03:02:00Negative 2(02/25/17 9:02 PM)[facility]ann[facility]LECULAR DIAGNOSTIC 2017-02-26 03:02:00Negative 1(02/25/17 9:02 PM)[facility]ann[facility]AL - SEROLOGY 2017-02-26 03:02:00Negative (02/25/17 9:02 PM)[facility]annCHEM PANEL 2017-02-26 01:42:000.9[facility]annCHE[facility] UCULA3425-57-70 01:42:0023[facility]annCHE[facility] MKQRF8913-56-40 01:42:004.3[facility]annCHE[facility] TGDBQ8135-55-37 01:42:0011.3[facility]CHE[facility] ZDGKJ9684-62-15 01:42:11684Eqnossdw HermannCHEM MYKDC3154-72-79 01:42:000.3[facility]annCHE[facility] OLKSK2577-04-06 01:42:0016 [facility] WCHWW4063-09-35 01:42:0017[facility]annCHEM PANEL 2017-02-26 01:42:008.2[facility]annCHE[facility] NBBKC3606-64-20 01:42:004.3[facility]annCHE[facility] VYGBR4049-37-98 01:42:53858Fbdegrxx HermannCHEM WDLLM1126-53-11 01:42:000.70[facility]annCHE[facility] VUPGX3192-42-69 01:42:85974Hvjrkfdu HermannCHEM LYICS2710-52-44 01:42:008.9[facility]annCHE[facility] OPCAW5496-00-00 01:42:0097 [facility] CLANM8610-24-43 01:42:0026[facility]annCHEM PANEL 2017-02-26 01:42:04174Jvgfxkws HermannCHEM ROEDU5864-10-10 01:42:0016[facility]annCHE[facility] NNTQI6426-54-63 01:42:003.9[facility]annCHEM ZHLJN0255-98-15 01:42:001.8[facility] OfpjxvqNMOINONJSP0826-45-25 01:42:22439Dpxzyvjz [facility] JQTLALBYGE3710-14-66 01:42:0082.2[facility] XgemolsUBNJVCZAWE9522-59-28 01:42:00 37.1[facility] AgdhargZAEBCPOAUX3438-97-20 01:42:007.4[facility]annHEMATOLOGY 2017-02-26 01:42:0014.1[facility] YjpsawyTAUJFSYIJE1226-65-29 01:42:00 Test Item Value Reference Range Interpretation Comments MCH (test code = MCH) 27.6 pg 27.0-31.0 [facility] BllesemQEJQOSCXPS8951-75-88 01:42:0033.6[facility]annHEMATOLOGY 2017-02-26 01:42:004.52[facility] JrdiutdXUEQAJDCWO4118-15-98 01:42:0012.5[facility] NgnqkctQOREAFNIJD1852-87-70 01:42:007.1[facility] DdqbedyGUQGKIEVMG1168-63-18 01:42:000.8[facility] XjewrygZPHMGYIHAL3246-27-06 01:42:002.8[facility] VYQCQTYZRQ2872-03-50 01:42:003.8[facility] WxzbozdMNHURPFVYH7884-78-59 01:42:000.4 [facility] BhjqeakMDCKXHYTBK1067-13-55 01:42:0053.4[facility]annHEMATOLOGY 2017-02-26 01:42:0039.1[facility] KomwkfvDGOEOGUVJP6756-01-65 01:42:001.4[facility] UeqbezeJHNLNQUJQE1022-05-92 01:42:005.3[facility] BcybpadMBCIPTOGXV1489-61-47 01:42:000.1[facility] HmmovdrOQLHHUPEJG5893-26-59 01:42:000.1[facility]annURINE AND WYJBF7942-10-84 01:42:000.2[facility] AND XGSND6296-35-78 01:42:00Negative (02/25/17 7:42 PM)[facility] CGPTQ2625-73-18 01:42:00Negative *NA*(02/25/17 7:42 PM)[facility] TVLSB5493-25-07 01:42:00Negative *NA*(02/25/17 7:42 PM)[facility] ZAMPH5879-40-54 01:42:00Negative (02/25/17 7:42 PM)[facility] TAMZL4046-95-15 01:42:00Negative (02/25/17 7:42 PM)[facility] JEWEA2516-37-03 01:42:00Negative (02/25/17 7:42 PM)[facility] COOXU1599-72-11 01:42:00 Test Item Value Reference Range Interpretation Comments UA pH (test code = UA pH) 6.0 1 5.0-8.0 [facility] PRDEA4856-11-22 01:42:00 Test Item Value Reference Range Interpretation Comments UA Spec Grav (test code = UA Spec 1.010 1 Grav) [facility] EOZFE4122-37-14 01:42:00Yellow *NA*(02/25/17 7:42 PM) [facility] LGYEG2201-63-55 01:42:00Slight Cloudy (02/25/17 7:42 PM)[facility]annVIRAL - PLDUEIZU2414-24-28 01:42:00Negative (02/25/17 7:42 PM)[facility]ann[facility] - SASKBKBQ0739-36-56 01:42:00Negative (02/25/17 7:42 PM)[facility]annCHE[facility] GGCVP5257-21-50 09:02:27199Bectjdrg HermannCHEM PANEL 2017-01-26 09:02:000.2[facility]annCHEM ICHLG0838-18-26 09:02:54768Kbsxvhco HermannCHEM IUMSF1204-10-46 09:02:0012[facility]annCHEM XOJSL0104-33-05 09:02:003.3[facility]annCHEM KNXVH7335-16-93 09:02:002.4[facility]annCHEM JZFXQ8594-80-31 09:02:005.7[facility]annCHEM RNKBX2742-82-47 09:02:009.7 [facility]annCHE[facility] QHZPM8564-71-64 09:02:29061Gavxpqhu HermannCHEM PANEL 2017-01-26 09:02:007.4[facility]annCHEM ICLVW6637-02-93 09:02:000.7[facility]annCHEM LGQJA9735-18-63 09:02:000.40[facility]annCHEM FJVLC8891-79-82 09:02:005[facility]annCHEM SDBVV4705-98-76 09:02:0037[facility]annCHEM RJSVE4569-79-97 09:02:0044[facility]annCHE[facility] XPUPR4670-42-15 09:02:003.7 [facility]annCHE[facility] KZQUZ3236-43-57 09:02:41848Inxunssc HermannCHEM PANEL 2017-01-26 09:02:0025[facility]annCHEM VMSUC6233-31-15 09:02:51491Cedhfbuo HermannCARDIAC RMGJLDU8269-00-25 22:26:00<0.02[facility] HermannPARATHYROID GZJYOBY5517-79-69 22:26:000.99[facility] HermannPARATHYROID QWFONMR2430-44-25 22:26:001.01[facility]annCHEM OCZHO2668-98-72 20:00:002.6[facility]annCHEM RVEHR5328-24-19 20:00:75434Ludkiitc HermannCHEM KCYAK0417-25-81 20:00:000.50 [facility]annCHE[facility] NZFIP3487-95-00 20:00:58677Siehazzj HermannCHEM PANEL 2017-01-25 20:00:003.6[facility] HermannCHEM UKIJO6583-73-67 20:00:0025[facility]annCHEM DEOJU4249-11-32 20:00:99197Ndnxgihq HermannCHEM FYRWA6120-58-40 20:00:008.6[facility]annCHEM MOUNN5205-33-05 20:00:006.9[facility]annCHEM FLVRF4912-65-44 20:00:51946Dwdcoywi HermannCHEM YVDHI0693-58-50 20:00:008 [facility]annCHE[facility] WSCTZ5324-72-46 08:54:002.7[facility]annCHEM PANEL 2017-01-25 08:54:84236Xlhxpfyr HermannCHEM YAEGB1782-14-45 08:54:000.60[facility]annCHEM MYGOZ7059-14-69 08:54:009[facility]annCHEM XDWXU9523-80-56 08:54:39214Dcvpwzie HermannCHEM WESIF3221-73-19 08:54:0012.5[facility]annCHEM OEPDE2902-43-17 08:54:003.5[facility]annCHEM SDACV3353-95-71 08:54:72981 [facility]annCHE[facility] YEGHG7361-85-82 08:54:0023[facility]annCHEM PANEL 2017-01-25 08:54:007.1[facility]annCHEM IGNGF2273-42-23 08:54:94281Ykuapxki HermannCHEM KVUOX7732-20-65 08:54:001.7[facility] MmnxohiPCNUHCGTIF5408-85-03 08:54:007.4[facility] ErhkpexDINIDVOUUN4880-11-72 08:54:0013.6[facility] IZSFZXNSYL0145-57-04 08:54:90122Vfbdqokn GtolgttBLFOFVKHJE4996-42-07 08:54:00 33.4[facility] QkvjdbvWOFPPDOMCR2535-91-57 08:54:0082.5[facility] HermannHEMATOLOGY 2017-01-25 08:54:00 Test Item Value Reference Range Interpretation Comments MCH (test code = MCH) 27.6 pg 27.0-31.0 [facility] DfgoxarFTNURPWHMO2925-17-62 08:54:0010.7[facility] HermannHEMATOLOGY 2017-01-25 08:54:0032.0[facility] FuxuymwLKGTYZCHEZ2550-28-51 08:54:005.5[facility] DaksxxyCGZHAFKWEZ8762-61-07 08:54:003.88[facility] PoojhbuPUNGUFSVER8033-25-12 08:54:007.2[facility] OeotnhpJSHDIRKVDX4857-19-58 08:54:000.4[facility] KSPWBRGETL1783-93-50 08:54:003.0[facility] ZyrbcebGJWDKMRBUT5938-92-64 08:54:002.0 [facility] JanepyiWVTFYAVHQR8078-47-50 08:54:000.9[facility] HermannHEMATOLOGY 2017-01-25 08:54:000.6[facility] IzychgyYZAYJCRFKL2293-31-29 08:54:0036.3[facility] LkvydycLEUGRXRDCB0507-65-30 08:54:0055.0[facility] STOOL 2017-01-25 04:54:00Negative (01/24/17 11:54 PM)[facility] STOOL 2017-01-25 04:54:00Positive *ABN*(01/24/17 11:54 PM)[facility] LMMWF7206-06-23 04:54:00Negative (01/24/17 11:54 PM)[facility] QMLWN6823-47-21 04:54:00Negative *NA*(01/24/17 11:54 PM)[facility] ONNWQ6246-48-30 04:54:00Negative (01/24/17 11:54 PM)[facility] MGNYF8633-89-48 04:54:000.2[facility] ZVMGQ1242-06-44 04:54:00Negative *NA*(01/24/17 11:54 PM)[facility] STOOL 2017-01-25 04:54:00 Test Item Value Reference Range Interpretation Comments UA pH (test code = UA pH) 5.5 1 5.0-8.0 [facility] YYNCL2741-87-92 04:54:00<=1.005 *NA*(01/24/17 11:54 PM)[facility] LOKOM1387-90-87 04:54:00Yellow *NA*(01/24/17 11:54 PM)[facility] WEIMW2888-68-73 04:54:00Clear (01/24/17 11:54 PM) [facility]annCARDIAC WLFIFSG7103-92-72 02:44:0062[facility]annCARDIAC DPVLMOG2299-80-23 02:44:00<1.0[facility]annCARDIAC ZPHNOQA0756-18-91 02:44:00<0.02[facility]annCARDIAC YLNTIEJ8785-68-11 02:44:00<1.6 [facility]annCHEM WQAIA0870-34-94 02:44:0014[facility]annCHEM PANEL 2017-01-25 02:44:000.5[facility]annCHEM CJVBB2153-99-85 02:44:0037[facility]annCHEM UEXEY4034-42-47 02:44:04866Oicwrszc HermannCHEM DBOXN4263-55-33 02:44:000.7[facility]annCHEM VYSAF0713-56-84 02:44:004.7[facility]annCHEM IUFZT3810-75-53 02:44:003.5[facility]annCHEM EXYQW9737-95-73 02:44:0016 [facility]annCHE[facility] FWBXJ8809-57-12 02:44:008.2[facility]annCHEM PANEL 2017-01-25 02:44:14209Jexfzmjt YzlcntfGWAQENADPI8692-18-62 02:44:0013.7[facility] XqrvysdWIYFHNYXAB0829-69-34 02:44:0041.6[facility] QebmyrsTNHBECBKLK6186-82-03 02:44:0083.6[facility] EbfuaavJHIXZKVAIQ6054-23-98 02:44:00 Test Item Value Reference Range Interpretation Comments MCH (test code = MCH) 27.5 pg 27.0-31.0 [facility] CawyahbZDDNBITLFB8215-38-30 02:44:0032.9[facility] HermannHEMATOLOGY 2017-01-25 02:44:0013.6[facility] VlsaespFVBVPWVRYN2823-32-62 02:44:75959Dtuwvnos TjqdyrnPJDLOPIUHT2574-97-96 02:44:008.1[facility] EbdhfflMIIBTCUAOT4673-96-43 02:44:005.8[facility] AcsuoyhQZBXKEAFRR8951-81-81 02:44:004.97[facility] [place] VLIWDIBPKD6836-47-23 02:44:000.4[facility] OyxawwfHQBTFZDBMQ4911-94-97 02:44:000.7 [facility] NectxrgHNTUSPNWJX6754-20-17 02:44:003.5[facility] HermannHEMATOLOGY 2017-01-25 02:44:007.1[facility] WbjvgfjKINFWTEWYY6502-62-94 02:44:000.6[facility] GkhaxqbSYPCZGVXWW6378-49-62 02:44:001.8[facility] HsdsgdbZKYEEAIMHN0363-21-53 02:44:0059.9Mearrial UhuzlqvFUWWQPPKCT3174-03-16 02:44:0031.7[facility] URINE DNZFDTJ1498-17-11 09:22:00 Test Item Value Reference Range Interpretation [...] S Sulfamethoxazole (test code = 47) POCT-GLUCOSE [id number] 23:15:00 Test Item Value Reference Range Interpretation Comments POC-GLUCOSE METER 227 mg/dL 70-110 H TESTED AT [address] ([facility]) (test code [facility] [place] = 1538) [address] URINALYSIS W/ DPAJPGHXSNS3479-34-30 22:36:00 Test Item Value Reference Range Interpretation [...] 1663) SOURCE(BEAKER) (test code = 2795) KETONE, [id number] 22:32:00 Test Item Value Reference Range Interpretation Comments KETONES, BLOOD (BEAKER) (test code 0.6 mmol/L <0.4 H = 1103) BLOOD GAS, [id number] 22:30:00 Test Item Value Reference Range Interpretation [...] (test code = 1819) 21.0 % SCREEN, [id number] 22:29:00 Test Item Value Reference Range Interpretation Comments TEST URINE (BEAKER) (test Negative code = 583) TROPONIN [id number] 21:42:00 Test Item Value Reference Range Interpretation [...] CK-MB Reference Range:<5 Normal5-10 Borderline>10 AbnormalCOMPREHENSIVE METABOLIC GWMPA8911-07-11 21:34:00 Test Item Value Reference Range Interpretation [...] S NOT APPLICABLE FOR DIALYSIS PATIEN TS. [id number] 21:32:00 Test Item Value Reference Range Interpretation Comments LIPASE (BEAKER) (test code = 749) 28 U/L 6-51 CBC W/PLT COUNT & AUTO UCLTEERNZMIE0486-23-39 20:55:00 Test Item Value Reference Range Interpretation [...] L 0.00-0.20 (test code = 417) POCT-GLUCOSE [id number] 20:56:00 Test Item Value Reference Range Interpretation Comments POC-GLUCOSE METER 446 mg/dL 70-110 Notified R Diana DALTON/TESTED AT ([facility]) (test code [address] = [address] [facility] [address] BEDSIDE GLUCOSE PSTWHOF4345-62-57 15:13:01742Crdqdyrm HermannBEDSIDE GLUCOSE OQYZTWW2807-42-38 04:18:08360Gxdjidpg WjoxgkyGMCTMKBWA9854-83-12 03:05:000.14 [facility] LkoahuzLKISWUOJV1489-19-36 03:05:008[facility] OjcuzxxSZUYCJNUK6718-85-19 03:05:000.2[facility] XltgccpUWRRUSZLR7537-24-99 03:05:0027[facility] [place] NTHGWKLEU7930-55-71 03:05:0013.2[facility] ZeehfhmDHDWZSVRE5208-39-93 03:05:008.8 [facility] FczssufOCVYMWPMS7081-98-50 03:05:007.6[facility] HermannCHEMISTRY 2011-11-29 03:05:0016[facility] LjsalhmBZXTCBURS0148-57-36 03:05:003.8[facility] MmhtnzfULEJGEFDN1445-88-00 03:05:003.8[facility] KivnnhyVKAUFBCDE9792-86-64 03:05:001.0[facility] XdhsgvyMIPYLOLNC3821-50-76 03:05:60272Gacbpbyq [place] ORDSSQSZH1105-04-35 03:05:0013[facility] DxbfexuKYDDLPCGH5892-33-07 03:05:76177 [facility] UayrmtoVGNUJNEEL5198-05-08 03:05:0098[facility] HermannCHEMISTRY 2011-11-29 03:05:000.7[facility] ZkbmhscIZPHSYVKL2071-65-30 03:05:0011[facility] HhhgaliSHLFGGYOW1391-07-80 03:05:004.2[facility] WnenukhHYGNPJBLZ5020-95-13 03:05:06370Oswkjsmc TlxubemBPZJYGHZRR8160-36-28 03:05:004.41[facility] FEMUSNKKDM5511-98-67 03:05:005.7[facility] ZvgsvvrSPAMVKRGXN6008-31-46 03:05:00 33.2[facility] LiwxmjkJEFUNEMHJZ0311-67-30 03:05:0012.9[facility] HermannHEMATOLOGY 2011-11-29 03:05:0013.8[facility] PkxsezqNFBPAGGIQX1331-37-66 03:05:0088.4[facility] PefsvudPYXOOQEXIN5874-68-42 03:05:00 Test Item Value Reference Range Interpretation Comments MCH (test code = MCH) 29.3 pg 27.0-31.0 N [facility] JawrmtsMKSATPLZVF0235-62-58 03:05:0038.9[facility] HermannHEMATOLOGY 2011-11-29 03:05:007.5[facility] DsfplzyNMYGDWNHSA5403-73-68 03:05:38638Rvtghodd FjywtlpDPDJYZOIFR4049-42-06 03:05:0057.5[facility] ZdteorkKWTZPDMQOU1319-41-56 03:05:000.5[facility] MjoakpnMXLRYCZOMG1259-11-15 03:05:001.5[facility] IXWOXDOLCO4898-48-40 03:05:005.3[facility] GzuormyYESRZAXVUO1322-61-41 03:05:00 35.2[facility] VuwnovmXQVXDBIIZI0334-91-24 03:05:002.0[facility] HermannHEMATOLOGY 2011-11-29 03:05:003.3[facility] ZpbfvoyXEKFORPEEK6808-16-44 03:05:000.1[facility] XumsdccLPPSMQHKPS3311-05-57 03:05:000.3[facility] EnipydxPGUTAJVMPJ3233-71-10 03:05:000.0[facility] ZjfvwdcEYFSXHRUAD3898-49-17 03:05:00 Test Item Value Reference Range Interpretation Comments UA Spec Grav (test code = UA Spec 1.010 1 N Grav) [facility] AvcwapmDRCYAQRWOP0546-95-87 03:05:00 Test Item Value Reference Range Interpretation Comments UA pH (test code = UA pH) 5.5 1 5.0-8.0 N [facility] VoiipjwWPYGEBPGHP2268-33-63 03:05:00Yellow *NA*(11/28/2011 22:05:00) [facility] IeohtbaKZZBLJDLEL1348-99-61 03:05:00Clear (11/28/2011 22:05:00)[facility] WzdpjboFCGVRRMIXQ2606-63-21 03:05:00Negative (11/28/2011 22:05:00)[facility] OyufnkcQYDBQXNWGJ7447-55-42 03:05:00Negative (11/28/2011 22:05:00)[facility] CinfqymNHZCUUFPDT0727-88-15 03:05:000.2[facility] JvbhtizBEDISVTIIV5849-93-33 03:05:00>=1000 mg/dL *ABN*(11/28/2011 22:05:00)[facility] HermannURINALYSIS 2011-11-29 03:05:00Negative mg/dL *NA*(11/28/2011 22:05:00)[facility] PLLBWKHSXZ1094-47-69 03:05:00Negative mg/dL (11/28/2011 22:05:00)[facility] IlekwakXJZQIKJEWN0615-60-14 03:05:00Negative (11/28/2011 22:05:00)[facility] FwhveccWFVUDICXDZ6764-35-34 03:05:00Negative *NA*(11/28/2011 22:05:00)[facility] JdbjuyxGELYXVDDJY0560-11-35 03:05:00Rare /LPF (11/28/2011 22:05:00)[facility] ZrmdtoqHMBEFIDPVY6444-15-59 03:05:00Occasional /HPF (11/28/2011 22:05:00) [facility] EaxncpgIASGCCOHOO5377-31-48 03:05:000-2 /HPF (11/28/2011 22:05:00) [facility] HbvkrsmFJILFNHBZO3356-71-50 03:05:000-2 /HPF (11/28/2011 22:05:00) [facility] RkbwrvmQWYWBANMKN5904-83-93 03:05:00Performed (11/28/2011 22:05:00) [facility] HermannBEDSIDE GLUCOSE MCAJCKI5122-02-78 02:45:00>400[facility] HermannBEDSIDE GLUCOSE JVQIRTD5854-79-17 06:10:17076Qllrkqqo HermannBEDSIDE GLUCOSE KUSRBEG3477-40-21 05:04:0094[facility] WctfustARMRFVFDI8868-08-57 03:06:00 72[facility] MzpwyliZEUZWFUFL2921-61-01 03:06:0040[facility] HermannCHEMISTRY 2011-10-25 03:06:007.42[facility] GjdvpnfHBCENZZNL9989-29-18 03:06:000.0[facility] DtukvpeJQXXSAPKP6814-41-04 03:06:00Rm Air (10/24/2011 22:06:00)[facility] [place] URCGQPCPQ7373-55-80 03:06:0095.0[facility] MbgadvjSDNBICDHD7554-96-18 03:06:001 [facility] FltxhdsDOHHBRJNC8529-13-50 03:06:0026[facility] HermannCHEMISTRY 2011-10-25 03:05:56406Fnqhsdli YtsoiqxQAMKPRSVM4455-14-67 03:05:88833Totxdzkn WbibsanWEQBRELCH0761-85-71 03:05:0019[facility] CsvjsdoJHDEGFZSB7228-96-50 03:05:008.4[facility] LiuxzfuLHDAJRFYT2509-69-37 03:05:80134Fgzcrnll [place] JIGYJELIC4787-93-92 03:05:97865Pdsjchnj TzprvvdSVSBWMFLM6721-22-75 03:05:003.8 [facility] SoduyilVIKKTHVIK0497-99-34 03:05:003.7[facility] HermannCHEMISTRY 2011-10-25 03:05:0027[facility] OtqgizjPSFQGDBFU2185-41-01 03:05:0012.2[facility] LzoeirkIOWCMOHCP1773-32-78 03:05:004.2[facility] OppaafiPKCUFUHOI4407-26-88 03:05:000.8[facility] MiqpbtyUFEDWVWXF6349-84-41 03:05:76110Uhmcbihi [place] JKJSSOAHM1857-74-79 03:05:0024[facility] GwzujtwJHESSJPMQ4732-57-44 03:05:007.5 [facility] IaalebvZFXWDIUSW0010-02-75 03:05:0010[facility] HermannCHEMISTRY 2011-10-25 03:05:99360Wmmxwepb LepouakSLUNRQQGF8885-84-72 03:05:000.3[facility] MoixbpnLGSBADOCC8753-21-84 03:05:001.0[facility] AxuflpcDNOONANLK8348-72-01 03:05:0017[facility] IinewttQLBKDAAGY0767-04-09 03:05:000.22[facility] [place] JCJRMATAGG3634-49-60 03:05:000.1[facility] RhjgejnQYNVLWONJP4437-57-46 03:05:002.0 [facility] ItmqisxDKDUNDGOGV3593-17-04 03:05:000.0[facility] HermannHEMATOLOGY 2011-10-25 03:05:000.4[facility] EfxehyzCBMFFKAXGK7050-71-12 03:05:0029.4[facility] RpzaiznKVOTVRTJBK4219-94-27 03:05:004.3[facility] HjxqrkzOXWVOBCQHX8098-22-83 03:05:005.7[facility] XoldqumWACPGAPNRI5936-51-75 03:05:000.4[facility] [place] QAUJTCXQXN2073-70-15 03:05:001.2[facility] FwcppvcYGRCKHTJDW7990-45-99 03:05:00 63.3[facility] QovxbfuVGOPQNSUCY2737-71-04 03:05:0014.0[facility] HermannHEMATOLOGY 2011-10-25 03:05:76527Fkdtxzjz KpyjxjxGJXIILFWHK0664-34-31 03:05:008.0[facility] AhqgqyuXBSKOVSUNR4801-69-30 03:05:0013.3[facility] TxxxeihGJTWWWDJEY0960-72-57 03:05:0039.4[facility] VhkbwgsUPFILWPMNQ8883-38-81 03:05:0086.2[facility] HHCWEMAPTL4608-19-27 03:05:00 Test Item Value Reference Range Interpretation Comments MCH (test code = MCH) 29.1 pg 27.0-31.0 N [facility] XtxjtwxUACHXOBVML3347-67-16 03:05:0033.8[facility] HermannHEMATOLOGY 2011-10-25 03:05:006.9[facility] KhmusyjULAHGBDQCL8058-35-99 03:05:004.57[facility] NisllvkWOLHNQYKPK6413-64-25 03:05:00Positive *ABN*(10/24/2011 22:05:00)[facility] VkosdcnFWTLTLQQLX2838-59-56 03:05:00Negative (10/24/2011 22:05:00)[facility] QwgmjlyYBJTVWGYFE8149-97-61 03:05:00Negative (10/24/2011 22:05:00)[facility] ZkjuonzFIBLAFVCWB1098-54-67 03:05:00>=1000 mg/dL *ABN*(10/24/2011 22:05:00) [facility] EctnwcjWKSGSXQQEY1096-19-66 03:05:00 Test Item Value Reference Range Interpretation Comments UA pH (test code = UA pH) 6.0 1 5.0-8.0 N [facility] PjnjadoEOKJYDMFMN4948-92-89 03:05:00 Test Item Value Reference Range Interpretation Comments UA Spec Grav (test code = UA Spec 1.015 1 N Grav) [facility] TmrkwdfIZPCHDIKTA6285-66-05 03:05:00Yellow *NA*(10/24/2011 22:05:00) [facility] MqhugyiOECYRJJMIT7147-62-72 03:05:00Clear (10/24/2011 22:05:00)[facility] GjmhcmsNWQZXFRJRM0817-00-66 03:05:000.2[facility] VmlbakuXDPRISFKFT9174-66-99 03:05:00Negative *NA*(10/24/2011 22:05:00)[facility] WilvnhoPATJESHZHO9930-65-48 03:05:00Negative (10/24/2011 22:05:00)[facility] IryijgyTQZXVKDIAV1043-79-35 03:05:00Negative *NA*(10/24/2011 22:05:00)[facility] ByjijjmAJKZVLPLXF8519-23-47 03:05:00Rare /LPF (10/24/2011 22:05:00)[facility] RnlmbawKDRPOWMRRZ8264-25-10 03:05:00Moderate /HPF (10/24/2011 22:05:00)[facility] MmkfyizJTLBNHWRCE2260-52-43 03:05:000-2 /HPF (10/24/2011 22:05:00)[facility] LeinnrgYWHGGDBXTA2134-98-39 03:05:00Performed (10/24/2011 22:05:00)[facility] HmwjawaGTCLUMNJCN1610-41-25 03:05:006-10 /HPF *ABN*(10/24/2011 22:05:00)[facility] CqfyxizMVUCSXYVYA9289-58-97 03:05:00Rare /LPF (10/24/2011 22:05:00)[facility] HermannBEDSIDE GLUCOSE TESTING 2011-10-25 02:43:00>400[facility] HermannBEDSIDE GLUCOSE DPUDLAB9179-39-42 08:15:48680Ebxrykkq HermannBEDSIDE GLUCOSE ATEAERT1587-95-79 07:07:00>400 [facility] RzmpclkWIAAIUMME9650-66-68 05:10:32040Vnodkmhw HermannCHEMISTRY 2011-05-23 05:10:000.8[facility] EsglhybRVZUTRNDH1782-59-54 05:10:0026[facility] ZnbghzhRTVFMXQYP0539-34-28 05:10:0096[facility] TxawsutVXHSCKPPC9306-02-69 05:10:003.9[facility] WbyxkynPHLJRGZRY1291-24-24 05:10:0012.9[facility] [place] VJHPXDLNW8678-22-29 05:10:004.0[facility] ZmfvrwfCRIUQSIMZ0758-02-16 05:10:007.8 [facility] HtvfvruRUCDRJQKL1656-16-00 05:10:0015[facility] HermannCHEMISTRY 2011-05-23 05:10:01560Tsutlbom BjdxmkiQKILCHBDV3818-77-42 05:10:001.1[facility] FuiiaydSFWUZCEDP2839-39-67 05:10:003.8[facility] IpyuovdGGJMUMSIH5793-43-42 05:10:008.6[facility] CeskhnlVZEPFBDTW3582-21-85 05:10:0011[facility] [place] ETIAORTTK9390-87-81 05:10:000.4[facility] WpzffbhRNKDUJOLH5173-16-04 05:10:45194 [facility] WcoiuaiFWXIDKRMJ5970-06-55 05:10:0015[facility] HermannCHEMISTRY 2011-05-23 05:10:03143Eknwfiex JwskennSTETCYCXP7200-69-60 05:10:0012[facility] NxqlruoBNGYVVGTY8564-19-84 05:10:14681Rmjlomwb LpqfknbTBCEWKTSE8759-47-93 05:10:000.36[facility] TxiljhyNLWCQHDVDU6364-52-13 05:10:46014Liviwovu [place] XIYKCRFUUG9162-50-11 05:10:0034.3[facility] RsomcigDTTQVRJBDT1268-48-87 05:10:00 7.9[facility] CzlmidnKLULFACCDI9637-74-24 05:10:0013.0[facility] HermannHEMATOLOGY 2011-05-23 05:10:00 Test Item Value Reference Range Interpretation Comments MCH (test code = MCH) 29.5 pg 27.0-31.0 N [facility] IzbrcifFSZDJACCJI6530-90-22 05:10:0038.1[facility] HermannHEMATOLOGY 2011-05-23 05:10:0086.0[facility] ThwdcinHUZDTRGBLL7983-25-95 05:10:004.43[facility] AtisbzgWRPKSUIHTH4382-63-34 05:10:005.9[facility] MmqfkrpCYOIQHTCGJ8017-75-72 05:10:0014.0[facility] GxdwaewTAMOSUKCTF1816-07-64 05:10:000.0[facility] [place] NKNVKWGPBG6054-46-64 05:10:001.7[facility] PpfjnykQOMQWRZHZZ1745-13-85 05:10:000.3 [facility] NbnsvvqDAVGIDYVOM2778-51-56 05:10:000.6[facility] HermannHEMATOLOGY 2011-05-23 05:10:003.8[facility] EqmbchpDBJBJNSHAT1002-29-74 05:10:000.1[facility] DpdojxlSUXOYHIXPO0025-99-92 05:10:004.7[facility] HfpompmEILNVJAZDN4769-04-62 05:10:0028.9[facility] YngolhmWQZDWUOFXK6804-95-67 05:10:002.5[facility] [place] MNOFJZYDWD8161-68-18 05:10:0063.3[facility] JppobzoWVVLUXSNJV5505-28-06 05:10:000- 2 /HPF (05/22/2011 23:10:00)[facility] PqrzplcPGVRIRGFOU3639-81-17 05:10:00 Occasional /HPF (05/22/2011 23:10:00)[facility] BkgtkgjOIXZVDVDHA9924-01-34 05:10:00Negative (05/22/2011 23:10:00)[facility] GyzezuiKHIBUYKEJD7120-59-72 05:10:00Negative *NA*(05/22/2011 23:10:00)[facility] ZifqtuaYZEOEXTOAJ7266-35-83 05:10:00>=1000 mg/dL *ABN*(05/22/2011 23:10:00)[facility] HermannURINALYSIS 2011-05-23 05:10:00Negative (05/22/2011 23:10:00)[facility] HermannURINALYSIS 2011-05-23 05:10:00 Test Item Value Reference Range Interpretation Comments UA pH (test code = UA pH) 5.0 1 5.0-8.0 N [facility] KtdequvUZYFOAETQC0997-25-43 05:10:003-5 /HPF (05/22/2011 23:10:00) [facility] PgdqniwMHUOKTCGEQ3671-54-74 05:10:00Rare /LPF (05/22/2011 23:10:00) [facility] NjhafnxEKGFCOSXLX3283-36-86 05:10:000.2[facility] HermannURINALYSIS 2011-05-23 05:10:00Negative (05/22/2011 23:10:00)[facility] HermannURINALYSIS 2011-05-23 05:10:00Negative *NA*(05/22/2011 23:10:00)[facility] HermannURINALYSIS 2011-05-23 05:10:00Negative (05/22/2011 23:10:00)[facility] HermannURINALYSIS 2011-05-23 05:10:00Performed (05/22/2011 23:10:00)[facility] HermannURINALYSIS 2011-05-23 05:10:00Yellow *NA*(05/22/2011 23:10:00)[facility] HermannURINALYSIS 2011-05-23 05:10:00Clear (05/22/2011 23:10:00)[facility] HermannURINALYSIS 2011-05-08 00:16:00Negative (05/07/2011 18:16:00)[facility] HermannURINALYSIS 2011-05-08 00:16:000.2[facility] SqaegfuCEFECYZDAR3586-32-97 00:16:00Negative *NA*(05/07/2011 18:16:00)[facility] GqemdsbFWVPVOUCBD6931-16-86 00:16:00Large *ABN*(05/07/2011 18:16:00)[facility] DddimpcIRCFUATHRQ9787-72-82 00:16:006-10 /HPF *ABN*(05/07/2011 18:16:00)[facility] KxcijopLPFRWDOIFH5842-24-10 00:16:00 Occasional /HPF (05/07/2011 18:16:00)[facility] VjxkoqvDJVSLXBFGU5310-09-06 00:16:00Performed (05/07/2011 18:16:00)[facility] HbfenhuZHEJCNVUZN6911-48-66 00:16:00Few /LPF (05/07/2011 18:16:00)[facility] FyaxnehQKLWZGWSEO8499-99-76 00:16:00Negative (05/07/2011 18:16:00)[facility] XyrenfpYWADXCYUSF1760-03-83 00:16:0021-50 /HPF *ABN*(05/07/2011 18:16:00)[facility] 00:16:00Trace *ABN*(05/07/2011 18:16:00)[facility] 2011-05-08 00:16:00>=1000 mg/dL *ABN*(05/07/2011 18:16:00)[facility] UXBDHOEWAC6173-66-97 00:16:00Negative (05/07/2011 18:16:00)[facility] WZDHMJEVJY0541-32-32 00:16:00 Test Item Value Reference Range Interpretation Comments UA Spec Grav (test code = UA Spec 1.010 1 N Grav) [facility] HospitalUekiiqnNLFLWRPHUD9514-83-74 00:16:00Clear (05/07/2011 18:16:00)[facility] HospitalSiljcefOTFEAQKEQW6833-86-57 00:16:00 Test Item Value Reference Range Interpretation Comments UA pH (test code = UA pH) 6.0 1 5.0-8.0 N [facility] GsoineiIQMSQOGEIN3906-23-71 00:16:00Yellow *NA*(05/07/2011 18:16:00) [facility] LKKUIFN9409-23-85 06:51:70628Jefwcxkj [place] ZXYHHNOSQ1349-79-81 04:20:00Negative (04/19/2011 22:20:00)[facility] [place]ona QIRGFHDWJ7412-94-49 04:20:004.1[facility] CmionbdMWRUEXDIJ9046-55-90 04:20:0015 [facility] EcizjliTZBMUIGHC8459-90-26 04:20:009.2[facility] HermannCHEMISTRY 2011-04-20 04:20:0096[facility] RsipmywZELPCADBC5066-33-77 04:20:0016.2[facility] GjmjspnRFVCIRXYM1956-31-20 04:20:0024[facility] AdbmxjbCTXEAUGQV5657-89-94 04:20:004.0[facility] DinfzpjFDOCEGCZL4041-94-29 04:20:008.1[facility] [place] TUUEYVOWN3906-48-09 04:20:000.4[facility] BumvgxdOHTNYIDJC8059-51-31 04:20:0092 [facility] ZudfmvsWXCQADPBB1062-82-57 04:20:004[facility] TdjbfidCFSFFURZI4476-14-69 04:20:0014[facility] TsbozuxXVEXPEMHZ9355-74-34 04:20:001.0[facility] [place] BHKYGTFMR5274-14-44 04:20:06503Pxkjrmdq GgvppjoWMQZPSMZM7959-43-21 04:20:000.8 [facility] LnwdlyeSBALAQEYW3350-04-81 04:20:0012[facility] HermannCHEMISTRY 2011-04-20 04:20:004.2[facility] SvcqbedTLDXLYFXP6300-81-68 04:20:42161Oxiarcba OxbaqvtYTOONDOKX7109-55-98 04:20:25420Civynqtp AepxvhiELUDIVWWA0614-67-88 04:20:0070[facility] WbwaijvEWQFRCMRFI6830-31-44 04:20:007.9[facility] [place] HRPJOVPQQE4926-58-27 04:20:64624Ecjamwso ByqxvbyPMSVLFGFZP4469-22-44 04:20:00 4.54[facility] JcwnbtzUQQYJHEILL9067-79-01 04:20:0013.3[facility] HermannHEMATOLOGY 2011-04-20 04:20:00 Test Item Value Reference Range Interpretation Comments MCH (test code = MCH) 29.3 pg 27.0-31.0 N [facility] SqrbbwgWQMJUJLGEV3009-61-87 04:20:0033.9[facility] HermannHEMATOLOGY 2011-04-20 04:20:0014.0[facility] IvozsxnQDQRHPXLES1225-30-55 04:20:0039.3[facility] FvjqvpzIQKMYQGRRU6915-53-90 04:20:0086.5[facility] ThbuipdBHXKVPCNCT0604-98-89 04:20:008.6[facility] WkozsquKAFIAUNUPK7673-36-85 04:20:000.1[facility] [place] OPCNRFRKPK5093-98-43 04:20:000.1[facility] IeavecnLSROCOQMNZ6680-48-67 04:20:000.9 [facility] XeidnpxAZZDEHFZLN8149-50-32 04:20:0019.9[facility] HermannHEMATOLOGY 2011-04-20 04:20:005.4[facility] YmwdscsQFVOWHTYVY9968-65-17 04:20:0073.1[facility] KyccymjGZDPYCLULD6065-22-42 04:20:001.7[facility] RpzfciiNCEQEKWWFP7373-77-26 04:20:000.5[facility] YqncllkMJUBZVXLHS6696-42-56 04:20:000.7[facility] [place] NDKLGRHNOV4718-21-28 04:20:006.3[facility] KtklmbaDTTRROASMC4606-38-25 02:29:00 Negative *NA*(04/19/2011 20:29:00)[facility] CcdahucGJPCZLSTDL2332-37-13 02:29:00 Negative *NA*(04/19/2011 20:29:00)[facility] HgcafcaGZCHVHJHRS0366-44-97 02:29:00 Negative (04/19/2011 20:29:00)[facility] EgiemtiCMJVOSCQHD3411-78-83 02:29:00 Negative (04/19/2011 20:29:00)[facility] XqsybmvQHNARTJCTF9396-95-64 02:29:00 Test Item Value Reference Range Interpretation Comments UA pH (test code = UA pH) 6.0 1 5.0-8.0 N [facility] FlnmuznAHJYTBEKQD9309-03-26 02:29:00>=1000 mg/dL *ABN*(04/19/2011 20:29:00)[facility] RmhkuplOADFUERJIH0151-34-02 02:29:00Performed (04/19/2011 20:29:00)[facility] IikurncHBSSYJEUIP8570-47-69 02:29:00Negative (04/19/2011 20:29:00)[facility] HrztzklTMEDEUGKOQ4874-99-80 02:29:000.2[facility] [place] SIXJLFINBC4460-90-30 02:29:00Negative (04/19/2011 20:29:00)[facility] [place] VDJMWVOYQM1234-41-30 02:29:00Occasional /HPF (04/19/2011 20:29:00)[facility] LvuelpaREIPDSTPEA3841-95-63 02:29:00Occasional /LPF (04/19/2011 20:29:00) [facility] QiansdbXRSPCTVAKU7895-59-04 02:29:003-5 /HPF (04/19/2011 20:29:00) [facility] VcpsjcfLRWDEICNWT1776-55-75 02:29:000-2 /HPF (04/19/2011 20:29:00) [facility] BadpmgjRQWIMRVDQD8127-21-71 02:29:00Clear (04/19/2011 20:29:00)[facility] UinkvwcUTNGBIYFXU3370-28-28 02:29:00Yellow *NA*(04/19/2011 20:29:00)[facility] HermannBEDSIDE GLUCOSE WWFPIUC4335-51-65 05:47:88112Fadtprgd HermannCHEMISTRY 2011-03-26 02:45:00<3[facility] YujvpzxSRZYHOYMP0812-48-41 02:45:009.2[facility] BxwkzadAWXGXYXUS8244-95-89 02:45:0014.0[facility] ZxvbyyrNTNQWXFYM2079-40-08 02:45:0025[facility] XfigudwIXWKECKNG4255-14-83 02:45:0097[facility] [place] ZDHLAPWPV2357-18-96 02:45:004.0[facility] TxovruqWFDCLZTHY5758-32-08 02:45:000.7 [facility] BuqthfdOKFHNLGWD5526-92-88 02:45:13576Zcbykjdx HermannCHEMISTRY 2011-03-26 02:45:000.5[facility] YxxzvybTZRNQCHIB5549-97-31 02:45:0069[facility] WzzkmymRCYFTVVIJ4183-54-26 02:45:0014[facility] QjqffzjXNGCCDGRE2486-74-96 02:45:003.9[facility] RdpgmggVRBZXILZP7311-46-48 02:45:007.8[facility] [place] HGHUCODUN6542-78-85 02:45:0019[facility] TiatwfePMKAZIGJG6556-98-44 02:45:001.0 [facility] HmpzeicTCYYIXFRI8905-66-38 02:45:003.9[facility] HermannCHEMISTRY 2011-03-26 02:45:0013[facility] KwcfrgjTUBFLILMA7923-93-83 02:45:32076Uannrspx GiqrryrALAILEEJK9620-33-03 02:45:87862Iveumppy HsnbvnkCDHOGNEZUR5003-14-03 02:45:0012.7[facility] TbwstioPOIIDLEYOU4441-93-97 02:45:0014.0[facility] [place] NHRYTTOUTN6313-43-38 02:45:0036.9[facility] ApabmjlDWFCBAVFIT5409-59-92 02:45:00 85.5[facility] MfzzjjiDORJVJYDBP2517-41-69 02:45:00 Test Item Value Reference Range Interpretation Comments MCH (test code = MCH) 29.5 pg 27.0-31.0 N [facility] UmxzvyoBWZHRPMZYW7946-60-69 02:45:0034.5[facility] HermannHEMATOLOGY 2011-03-26 02:45:56066Snhyxmak AmcaessIBPNYTDSSV4204-35-80 02:45:008.2[facility] IgfuwtqFGNMNMENVZ2036-21-72 02:45:006.9[facility] QiefymvJSGCOXMFEJ0582-88-03 02:45:004.32[facility] JdydpdvHGYGYOVKUE5237-90-51 02:45:000.5[facility] [place] WYUCMFPNNW6290-33-95 02:45:004.6[facility] VforarrBYLJEIOEMK3306-44-04 02:45:001.9 [facility] MdooibjCWYBFDQANQ6768-79-22 02:45:000.3[facility]annHEMATOLOGY 2011-03-26 02:45:000.1[facility] RuifslkQGVMEXNKFU8575-11-20 02:45:000.0[facility] OvlxworRFNUQPZYBR3092-98-92 02:45:0027.2[facility] PishwiuMKZYSXTDWZ9393-88-47 02:45:0066.3[facility] SzrnvjyGWKMMXEDII3160-97-13 02:45:004.8[facility] FFITHMRKNC9211-68-08 02:45:001.2[facility] ZmgazxvDSOUBWJFOM9493-16-28 02:00:00 Occasional /HPF (03/25/2011 20:00:00)[facility] HzoyoeiCJRCJZHFGW9402-52-07 02:00:00Occasional /HPF *ABN*(03/25/2011 20:00:00)[facility]annURINALYSIS 2011-03-26 02:00:00Rare /LPF (03/25/2011 20:00:00)[facility]annUR[facility]ALYSIS 2011-03-26 02:00:000-2 /HPF (03/25/2011 20:00:00)[facility]annUR[facility]ALYSIS 2011-03-26 02:00:000-2 /HPF (03/25/2011 20:00:00)[facility]annURINALYSIS 2011-03-26 02:00:00Negative (03/25/2011 20:00:00)[facility]YSIS 2011-03-26 02:00:00Performed (03/25/2011 20:00:00)[facility]annURINALYSIS 2011-03-26 02:00:00Negative (03/25/2011 20:00:00)[facility]YSIS 2011-03-26 02:00:00Negative (03/25/2011 20:00:00)[facility]annURINALYSIS 2011-03-26 02:00:000.2[facility] MkqcnesSVFFEWQYPN6978-72-73 02:00:00Yellow *NA*(03/25/2011 20:00:00)[facility] UinuvegALUMEFSAJD7392-88-52 02:00:00Clear (03/25/2011 20:00:00)[facility] QfleygcRGUYPFLZUZ5372-80-64 02:00:00Negative *NA*(03/25/2011 20:00:00)[facility] VzgqbhkYCZDWUKUIS0392-87-01 02:00:00>=1000 mg/dL *ABN*(03/25/2011 20:00:00)[facility] FpzaojeKJOZLBRRTN7782-79-22 02:00:00 Negative *NA*(03/25/2011 20:00:00)[facility] JibtecvDNFYSTFEHK5374-79-31 02:00:00 Test Item Value Reference Range Interpretation Comments UA pH (test code = UA pH) 6.0 1 5.0-8.0 N [facility] NrvhrbeIFQXLVVILT7275-10-89 02:00:00Negative (03/25/2011 20:00:00) [facility] HermannBEDSIDE GLUCOSE WKZYQYF1023-07-25 16:26:60507.0[facility] LTHFHJUPS4593-14-86 15:30:00<0.6[facility] ZptesjaSIADTJBTF4391-09-06 15:30:00 <0.5[facility] RytwcynGTLGOZBST9028-86-47 15:30:0077.0[facility] HermannCHEMISTRY 2011-02-11 15:30:0077.0[facility] SpzlxbjPPVGEMTSK7234-02-57 15:30:00<0.02 [facility] HermannBEDSIDE GLUCOSE KICHZGQ0315-17-51 12:00:59400.0[facility] SJFCKSYWB3249-64-95 09:29:001.5[facility] BsfbwivHEQXARWUF2739-03-71 09:29:59353.0 [facility] LedcakdXIKKKNFUL0413-59-18 09:29:0011.0[facility] HermannCHEMISTRY 2011-02-11 09:29:007.8[facility] HhwyzrnYKKPNXZJZ1151-41-06 09:29:0013.7[facility] IpjxysvUWNCGTJVJ0952-03-89 09:29:000.6[facility] PmimlgdXUKYXTUVN6340-11-72 09:29:30691.0[facility] MurgklmSWRGXKFMH0070-38-94 09:29:003.7[facility] MZSCAWJSQ5751-28-20 09:29:19714.0[facility] ZrskebpWEXSVNNQC8442-97-81 09:29:00 24.0[facility] VpgmlctUMUGLFDZY6653-88-65 09:29:00<0.02[facility] DPMLGIZQI2001-79-57 09:29:0071.0[facility] StgpjsuYBYJKWYEG5089-54-78 09:29:0071.0 [facility] LopgaanWXHYAWMOZL0048-73-08 09:29:007.8[facility]annHEMATOLOGY 2011-02-11 09:29:0014.1[facility] JvbnyqiDIDHCUJNSD6454-65-66 09:29:006.8[facility] PwzucpfBQPSJUSJJG1342-74-95 09:29:0011.8[facility] AwoabipBSIYCBQIEF4014-00-44 09:29:004.11[facility] AudivboUYHGDGYFYT4481-76-08 09:29:0035.3[facility] UDUYXAOXMT7565-29-94 09:29:00 Test Item Value Reference Range Interpretation Comments MCH (test code = MCH) 28.7 pg 27.0-31.0 N [facility] TqpufeeZFISVQATMY1697-96-56 09:29:0085.7[facility] HermannHEMATOLOGY 2011-02-11 09:29:80914.0[facility] CakbzlwBLIWAFVUMZ5626-53-28 09:29:0033.5 [facility] QtyvgsrLWSUCHWZBO5602-78-45 09:29:0026.3[facility] HermannHEMATOLOGY 2011-02-11 09:29:0065.8[facility] IetgwchZRWBFQHXDX7930-01-84 09:29:006.1[facility] HwuoclsZGHBTKYJJJ8647-46-37 09:29:001.2[facility] DcqliunVOKMGALNNY3604-33-69 09:29:000.6[facility] FyyutnuTFQNEYPXDF8095-06-40 09:29:004.5[facility] VHYHYFKMUL2437-97-74 09:29:001.8[facility] QbhkygkDVMXZFHJDJ8648-17-18 09:29:000.4 [facility] EuunuycQMZZTNYVRO1939-32-42 09:29:000.0[facility] HermannHEMATOLOGY 2011-02-11 09:29:000.1[facility] HermannBEDSIDE GLUCOSE CBUSXSE0584-88-34 05:34:00 151.0[facility] OtxtgbeZAFQHYVFUH4536-39-69 03:26:00>=1000 mg/dL *ABN*(02/10/2011 22:26:00) ??[facility] MayuagqYTWDQXTFER4674-25-12 03:26:00 Negative mg/dL *NA*(02/10/2011 22:26:00) [facility]jxgzvnNTOPTRWWTF4464-63-92 03:26:00 Test Item Value Reference Range Interpretation Comments UA pH (test code = UA pH) 6.5 1 5.0-8.0 N [facility] HospitalGydqmmnRTBJAUMQXK7967-41-62 03:26:00Negative mg/dL (02/10/2011 22:26:00) ??[facility] HospitalWbcoeahZAGGCBNDBC2352-06-25 03:26:00Negative (02/10/2011 22:26:00) ??[facility] HospitalDrcjupjRUCUVTXRGA0407-80-70 03:26:00Negative (02/10/2011 22:26:00) [facility] CenterShmvegmQZYJLYJCKA0455-88-03 03:26:000.2[facility] [place] RTWGCBRAUY4738-49-92 03:26:00Negative (02/10/2011 22:26:00) ??[facility] THQAXPXVMM0997-63-93 03:26:00Negative *NA*(02/10/2011 22:26:00) [facility] CenterCgdazwgPVAKVPWUHE9097-09-67 03:26:00Clear (02/10/2011 22:26:00) [facility] CenterEjuwwwwYBRDVLOGIV7485-58-57 03:26:00 Test Item Value Reference Range Interpretation Comments UA Spec Grav (test code = UA Spec 1.01 1 N Grav) [facility] CenterLjhlmfsSTQPALHRZW5844-91-91 03:26:00Yellow *NA*(02/10/2011 22:26:00) ?? [facility] CenterDebqouaDJAOYREHNB7802-60-10 03:26:000-2 /HPF (02/10/2011 22:26:00) ?? [facility] HospitalQcoxwkqBGTGRZTMBQ9223-15-27 03:26:006-10 /HPF *ABN*(02/10/2011 22:26:00) [facility] CenterFxhvtfcQSQJXJLKBQ4326-90-56 03:26:00Few /LPF (02/10/2011 22:26:00) [facility] CenterLvgracyCPQPIIMTNU8570-94-80 03:26:00Few /HPF (02/10/2011 22:26:00) ??[facility] XvwdbywYTYGDVGUAT8445-41-56 03:26:00Occasional /HPF *ABN*(02/10/2011 22:26:00) ??[facility] CnvvndqRSVBVJCWRW9263-51-68 03:26:00 Performed (02/10/2011 22:26:00) ??[facility] HgslnqpUDQSKZBFC4711-28-66 03:03:00 Negative *NA*(02/10/2011 22:03:00) ??[facility] FsnribaZLADYCNSU9451-03-08 03:03:00<0.5[facility] BwdvgwlCABUZVNPW2934-18-73 03:03:00<0.02[facility] EyqbaojSOQEKCCNB6562-43-94 03:03:007.0[facility] TwwrerkAKZPVUOPF7050-20-70 03:03:004.0[facility] UegkbugQJTLFARQF7436-14-00 03:03:007.5[facility] [place] KQMWHQUNX3200-39-35 03:03:00 Test Item Value Reference Range Interpretation Comments A/G Ratio (test code = A/G Ratio) 1.1 1 0.7-1.6 N [facility] QifyoycTJHYMGIRE9730-92-16 03:03:003.5[facility] HermannCHEMISTRY 2011-02-11 03:03:0014.0[facility] KjfyhxmGBHWHJWWB5701-72-84 03:03:000.3[facility] KvjopboYAESNFNBN3531-04-56 03:03:0069.0[facility] OcbspviSJKGTSBXY8830-12-76 03:03:0022.0[facility] ZbejecwSDOHXOWGC2275-96-09 03:03:00 Test Item Value Reference Range Interpretation Comments B/C Ratio (test code = B/C Ratio) 20.0 1 6-25 N [facility] ItqpvpfSYOLGNZPG7042-69-93 03:03:0096.0[facility] HermannCHEMISTRY 2011-02-11 03:03:008.7[facility] ZyxcgqaVRVGQTOKA0086-99-14 03:03:0017.3[facility] CywkiizUFOWEOERL2744-11-41 03:03:53548.0[facility] HmqslyjIDFCZFBFB9421-29-82 03:03:13192.0[facility] ZrogjwaSHBRDJJOW0862-28-23 03:03:000.6[facility] [place] ZNHMEBXZY8849-29-22 03:03:0012.0[facility] NdbygptGQXSNUZGH8314-56-99 03:03:004.3 [facility] AeizwtmWMKZUROCK3682-73-14 03:03:00Negative (02/10/2011 22:03:00) ?? [facility] ObrgjpuGZYGMNLRYV8585-53-48 03:03:003.9[facility] HermannHEMATOLOGY 2011-02-11 03:03:002.0[facility] KmgykumKTKDAEAHEP0026-43-12 03:03:000.5[facility] YybcvmxLVZQTJOWDX3336-42-40 03:03:000.4[facility] CjricsjHQTMANTXRC2785-58-18 03:03:000.1[facility] YeoecplTJOTXGKBLB3815-57-85 03:03:0060.9[facility] PZEWBVRIMP0810-01-71 03:03:0031.7[facility] VklzcknQGXBKYXDZZ2407-08-93 03:03:00 1.2[facility] IvtvdlgAHEHWBMYJX0532-00-71 03:03:005.7[facility]annHEMATOLOGY 2011-02-11 03:03:000.0[facility] HvrpsqrQMEWDRHLJE1522-85-44 03:03:00 Test Item Value Reference Range Interpretation Comments PT (test code = PT) 13.9 s 12.0-14.7 N [facility] DkaaxhuZNIFEIGIXI0395-48-78 03:03:00 Test Item Value Reference Range Interpretation Comments PTT (test code = PTT) 28.4 s 22.9-35.8 N [facility] MtzhgsxTYKAMRXWMY1039-88-60 03:03:00 Test Item Value Reference Range Interpretation Comments INR (test code = INR) 1.07 1 0.85-1.17 N [facility] GedwtolHAGPGJFCMY3779-77-58 03:03:0033.7[facility]annHEMATOLOGY 2011-02-11 03:03:0014.3[facility] EmcqforJNVKFTAPJK7675-59-70 03:03:79342.0 [facility] AnxrtbcKESVYZJCVO8622-34-07 03:03:007.9[facility]annHEMATOLOGY 2011-02-11 03:03:0085.9[facility] RbjebmxTVJXUZMZZG7295-36-23 03:03:004.43[facility] WajypsaMHWDAWMFDY8659-89-45 03:03:0038.1[facility] OgghlsaQVVQXDOCLU9586-08-30 03:03:0012.8[facility] IfwdgwdYEOUKPFSAN8614-87-02 03:03:00 Test Item Value Reference Range Interpretation Comments MCH (test code = MCH) 28.9 pg 27.0-31.0 N [facility] NkpteltUAWPYZFCRV5456-28-56 03:03:006.5[facility]annHEMATOLOGY 2011-02-11 03:03:001.1[facility] HermannBEDSIDE GLUCOSE ZBXJUVL2843-23-17 16:39:00 175.0[facility] HermannBEDSIDE GLUCOSE CNETSWS3603-66-39 12:16:0088.0[facility] HermannBEDSIDE GLUCOSE VGVJFFF6534-72-15 11:27:0070.0[facility]annCHEMISTRY 2011-01-15 10:45:00<0.6[facility] IqcoamuJKZDNAJVG9506-87-99 10:45:00<0.5 [facility] MaggeibJASPLYZRG2244-84-06 10:45:00<0.02[facility]annCHEMISTRY 2011-01-15 10:45:0088.0[facility] OmggvsqLDBNXALIY7711-86-55 10:45:000.6[facility] FcgvtrmVLTBVBDDU8899-19-48 10:45:003.4[facility] NfqjpcbTEZJERYQP8692-76-27 10:45:45801.0[facility] LxjnwzxMLBOJGBZU9326-57-35 10:45:0013.0[facility] PAZDXAEYX6881-52-31 10:45:0025.0[facility] KxhejlsDRCLCWVFR3396-31-94 10:45:008.0 [facility] XbppuwdEGVPWUOLY2830-71-94 10:45:0018.4[facility]annCHEMISTRY 2011-01-15 10:45:00273.0[facility] JdzujkjYEYDUHUAO7139-19-08 10:45:88309.0 [facility] CzredsjFJCLSFVQC5203-51-79 10:45:0096.0[facility]annCHEMISTRY 2011-01-15 10:45:00 Test Item Value Reference Range Interpretation Comments CHD Risk (test code = CHD Risk) 3.8 1 3.90-5.80 L [facility] UqecikqUQZHCECUP6179-26-84 10:45:0045.0[facility]annCHEMISTRY 2011-01-15 10:45:33769.0[facility] GmchnymWBUANNWEX2465-78-77 10:45:09389.0 [facility] ScvzmusJRXAVVWLB5356-07-15 01:43:00<0.5[facility]annCHEMISTRY 2011-01-15 01:43:00<0.6[facility] OxdfqptNJDJKOGXM7701-18-56 01:43:0083.0 [facility] VkozjviOSBSDYPCT6921-74-45 01:43:00<0.02[facility]annCHEMISTRY 2011-01-14 21:36:00Negative (01/14/2011 16:36:00) ??[facility]annCHEMISTRY 2011-01-14 20:36:00<0.6[facility] JanxeypOSHRMEINH4097-91-26 20:36:0013.0 [facility] VwjkwbqZUZRSVRRL5610-18-00 20:36:00<3.0[facility]annCHEMISTRY 2011-01-14 20:36:000.5[facility] OjyytcfGKSGJWIED1960-16-13 20:36:003.8[facility] DbcijzmTIJYDLHZZ8739-82-54 20:36:0017.0[facility] LbhqflaBMHLFKOCT1951-65-14 20:36:0071.0[facility] KrigmdgRSUOYRMJP4188-18-71 20:36:003.8[facility] [place] QIEZFTKOO5308-46-77 20:36:69214.0[facility] PohnjzpFKGVANHVU5547-32-75 20:36:00 22.0[facility] PididqyUCOZREJXI4477-30-62 20:36:0014.8[facility] HermannCHEMISTRY 2011-01-14 20:36:008.6[facility] PtzkclrGNLKCOWXQ6208-01-93 20:36:04465.0[facility] GucfdadNEPKPWWVZ8234-06-86 20:36:003.6[facility] UtanzhhQODOANVJQ5109-35-06 20:36:00 Test Item Value Reference Range Interpretation Comments A/G Ratio (test code = A/G Ratio) 1.1 1 0.7-1.6 N [facility] FtbnmjrSHXKZZNKA2316-24-66 20:36:00 Test Item Value Reference Range Interpretation Comments B/C Ratio (test code = B/C Ratio) 11.0 1 6-25 N [facility] SwkrhpqJEMBTCFAZ2446-55-85 20:36:007.4[facility] HermannCHEMISTRY 2011-01-14 20:36:65809.0[facility] BqlebvnDVMXXSVWR7427-30-90 20:36:009.0[facility] NrbejqnOERZDRPJI6672-12-04 20:36:000.8[facility] LaqsaorZNAPDWKAY6624-87-61 20:36:00<0.02[facility] VdmseleYOJXHGAVN4765-44-77 20:36:00<0.5[facility] XbqhuzcAXYSPANBH3543-87-44 20:36:0078.0[facility] YtsltvqBZVUYOTZKY3241-93-59 20:36:000.3[facility] CqzdwofQUGRULJSYJ0196-84-08 20:36:001.7[facility] VQUMIREYJO4436-33-41 20:36:003.5[facility] AkjpmctZMVMCPLQXM7268-35-50 20:36:000.9 [facility] QqxlufjTALBGXBCNQ4995-41-19 20:36:000.9[facility] HermannHEMATOLOGY 2011-01-14 20:36:000.0[facility] PrehutuYXNPSCXSAJ5740-01-12 20:36:000.1[facility] YtkohbjRYWWNWZXTC6889-90-12 20:36:0030.7[facility] LvmmjljRBCURCVERA1859-60-53 20:36:0063.0[facility] JzfzrxyPBVDVSMUUC5466-96-62 20:36:004.5[facility] SCGCIWEEMV4326-45-81 20:36:0014.6[facility] FsqwfjuHKDWUFLVRV3407-65-54 20:36:00 34.0[facility] KzfgzmxKMUIMKDIMA4782-83-83 20:36:008.0[facility] HermannHEMATOLOGY 2011-01-14 20:36:52739.0[facility] PczaaqfNYMAOMEHVN9040-11-12 20:36:00 Test Item Value Reference Range Interpretation Comments MCH (test code = MCH) 28.8 pg 27.0-31.0 N [facility]pbuyyoGYYRNDUXKM5801-76-45 20:36:0013.2[facility]annHEMATOLOGY 2011-01-14 20:36:004.6[facility] NbbwvmiHKLQMOKRWU0323-67-87 20:36:0038.9[facility] BuuatfgFUHNCBJTJP8758-56-43 20:36:0084.6[facility] NagcxhgBGMEGUGTEX0539-78-77 20:36:005.6[facility] FchftavQLEUWNVJEW0120-86-69 20:36:00 Test Item Value Reference Range Interpretation Comments PT (test code = PT) 13.6 s 12.0-14.[address] CenterAfmhwmdZSRIKPZUEC2843-76-42 20:36:00 Test Item Value Reference Range Interpretation Comments PTT (test code = PTT) 30.2 s 22.9-35.8 N [facility] HospitalWmdzdyjGQSLBWUCKS5304-65-97 20:36:00 Test Item Value Reference Range Interpretation Comments INR (test code = INR) 1.04 1 0.85-1.17 N [facility] HospitalOvhicbxZHHUYCRUUI1132-99-81 20:36:001.5[facility]
[2020-08-26 19:35] LABS: Basophils % 0.6 % (0-1.3); Hematocrit 30.9 % (36.0-45.0); Lymphocytes % 31.2 % (15.3-44.8); MPV 7.2 fL (7.6-11.3); RBC Red Blood Cell Count 3.69 M/uL (3.86-4.86)
[2020-08-26 19:47] LABS: ALT/SGPT 37 U/L (12-78); AST/SGOT 29 U/L (15-37); Albumin 3.9 g/dL (3.4-5.0); Alkaline Phosphatase 121 U/L (45-117); BUN Blood Urea Nitrogen 38 mg/dL (7-18); Bicarbonate 27 mmol/L (21-32); Bilirubin Direct < 0.1 mg/dL (0-0.2); Bilirubin Total 0.4 mg/dL (0.2-1.0); Glucose Level 209 mg/dL (74-106); Lipase 204 U/L (73-393); Magnesium 2.2 mg/dL (1.8-2.4); Potassium 4.2 mmol/L (3.5-5.1); Protein, Total 7.9 g/dL (6.4-8.2); Sodium Level 138 mmol/L (136-145)
[2020-08-26] MEDS ORDERED: NA CHLORIDE 0.9% 1,000 ML ONE ×2 (19:51→23:19)
[2020-08-26] MEDS ORDERED: FAMOTIDINE 20 MG/2 ML VIAL IV ONE (19:52)
--- NOTE | 2020-08-26 21:30 | RAD REPORT ---
EXAM DESCRIPTION: CT - Abdomen Pelvis W Contrast - 08/26/2020 9:01 pm CLINICAL HISTORY: Abdominal pain COMPARISON: 2019 TECHNIQUE: Computed axial tomography of the abdomen pelvis was obtained. 100 cc Isovue-300 was admin istered intravenously. Oral contrast was not requested which limits evaluation of bowel. All CT scans are performed using dose optimization technique as appropriate and may include automated exposure control or mA/KV adjustment according to patient size. FINDINGS: The liver, spleen, pancreas, adrenal and kidneys appear unremarkable. There is no evidence of diverticulitis. Cholecystectomy. Mild to moderate prominence of the biliary tree. Air is present within the wall and lumen of the bladder. 4 centimeter area of narrowing involves transverse colon IMPRESSION: Emphysematous cystitis 4 centimeter area of narrowing involves the transverse colon. This may represent neoplasm. Direct vis ualization is recommended. Prominence of the biliary tree. This can be a normal finding in a patient status post cholecystectomy . Pathology such as a stricture or stone within distal duct can also result this appearance and shoul d be correlated clinically with appropriate labs
[2020-08-26] MEDS ORDERED: MORPHINE 2 MG/ML SYR ONE ×2 (21:37→22:52)
[2020-08-26 22:03] LABS: Urine Blood Trace-intact (Negative); Urine Glucose 1+ (Negative); Urine Protein 1+ (Negative); Urine Specific Gravity 1.025 (1.005-1.030)
--- NOTE | 2020-08-26 22:20 | ER ---
Nurse's Notes [facility] Name: Melissa De Oliveira Age: 54 yrs Sex: Female : 1965 Arrival Date: 08/26/2020 Time: 18:28 Bed 6 Private MD: Diagnosis: Emphysematous Cystitis;Diarrhea;Dehydration Presentation: 08/26 18:40 Chief complaint: Patient states: "For 4 days now I've had diarrhea and its just water, aj1 it doesn't matter what I eat or drink its coming out and now I'm very dizzy" Patient reports upper abdominal pain. Denies vomiting, denies fever. Coronavirus screen: Client denies travel out of the [place] in the last 14 days. Ebola Screen: Patient denies travel to an Ebola-affected area in the 21 days before illness onset. Initial Sepsis Screen: Does the patient meet any 2 criteria? RR > 20 per min. Systolic BP < 90 mmHg. HR > 90 bpm. Does the patient have a suspected source of infection? Yes: Acute abdominal pain. Risk Assessment: Do you want to hurt yourself or someone else? Patient reports no desire to harm self or others. Onset of symptoms was August 26, 2020. 18:40 Method Of Arrival: Ambulatory aj1 18:40 Acuity: DEYA 2 aj1 Triage Assessment: 18:42 General: Appears in no apparent distress. uncomfortable, Behavior is calm, cooperative, aj1 appropriate for age. Pain: Complains of pain in right upper quadrant and left upper quadrant. Neuro: Level of Consciousness is awake, alert, obeys commands. Cardiovascular: Patient's skin is warm and dry. Respiratory: Airway is patent Respiratory effort is even, unlabored, Respiratory pattern is regular, symmetrical. GI: Abdomen is flat, non-distended. 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 Flu vaccine is up to date. - Social history:: Smoking status: Patient/guardian denies using tobacco. Screenin:14 Abuse screen: Denies threats or abuse. Denies injuries from another. Nutritional lp1 screening: No deficits noted. Tuberculosis screening: No symptoms or risk factors identified. 23:28 Fall Risk None identified. lp1 Assessment: 19:30 General: Appears in no apparent distress. Behavior is calm, cooperative. Pain: Denies lp1 pain. Neuro: Level of Consciousness is awake, alert, obeys commands, Oriented to person, place, time, situation. Cardiovascular: Patient's skin is warm and dry. Respiratory: Respiratory effort is even, unlabored, Breath sounds are clear bilaterally. GI: Abdomen is flat, Abd is soft and non tender X 4 quads. Reports diarrhea, x 4 days. : No signs and/or symptoms were reported regarding the genitourinary system. EENT: No signs and/or symptoms were reported regarding the EENT system. Derm: Skin is fragile, Skin is dry, Skin is normal. Musculoskeletal: No signs and/or symptoms reported regarding the musculoskeletal system. 20:15 Reassessment: Attempting peripheral IV access for patient. lp1 21:20 Reassessment: Verbal order from Dr. Gurrola for Morphine 2mg IV now for abdominal pain. lp1 22:00 Reassessment: Patient appears in no apparent distress at this time. Patient aware of lp1 waiting for results. 23:27 Reassessment: Patient complaint of burning to epigastric area; No relief with Zofran lp1 administered; Merry Lacey NP notified, verbal order given for GI cocktail PO without . 08/27 00:06 Reassessment: Patient reports minimal relief with GI cocktail administered. lp1 Vital Signs: 08/26 18:40 BP 81 / 63; Pulse 105; Resp 22; Temp 97.8; Pulse Ox 98% on R/A; Weight 47.17 kg (R); aj1 Height 5 ft. 4 in. (162.56 cm) (R); Pain 7/10; 19:40 BP 116 / 72; Pulse 90; Resp 18; Pulse Ox 98% on R/A; Pain 0/10; lp1 21:00 BP 134 / 76; Pulse 89; Resp 18; Pulse Ox 100% on R/A; lp1 21:36 BP 137 / 84; Pulse 88; Resp 14; Pulse Ox 100% on R/A; lp1 22:20 BP 151 / 86; Pulse 92; Resp 16; Pulse Ox 100% on R/A; ea 23:30 BP 142 / 81; Pulse 90; Resp 14; Pulse Ox 99% on R/A; lp1 08/27 00:05 BP 160 / 84; Pulse 90; Resp 14; Temp 98(O); Pulse Ox 95% on R/A; lp1 08/26 18:40 Body Mass Index 17.85 (47.17 kg, 162.56 cm) [facility] ED Course: 08/26 18:28 Patient arrived in ED. am2 18:42 Triage completed. aj1 18:42 Arm band placed on Patient placed in an exam room. 1 18:49 Fracisco Gurrola MD is Attending Physician. 7 19:13 Halie Johnson, KIRIT is Primary Nurse. lp1 19:40 Missed attempt(s): 22 gauge in left antecubital area. lp1 20:00 Patient has correct armband on for positive identification. Placed in gown. Bed in low lp1 position. Call light in reach. Pulse ox on. NIBP on. 20:20 Missed attempt(s): 22 gauge in left antecubital area. Bleeding controlled, band aid ea applied, catheter tip intact. 20:23 Missed attempt(s): 24 gauge in right antecubital area. Bleeding controlled, band aid ea applied, catheter tip intact. 21:01 CT Abd/Pelvis - IV Contrast Only In Process Unspecified. EDMS 22:18 Raymond Benitez DO is Hospitalizing Provider. 7 22:45 Wang cath inserted, using sterile technique, 16 Fr., by mn, balloon inflated, to lp1 gravity drainage. 23:28 No provider procedures requiring assistance completed. Patient admitted, IV remains in lp1 place. Administered Medications: 20:58 Drug: Pepcid (famotidine) 20 mg Route: IVP; Site: left forearm; ea 21:27 Follow up: Response: No adverse reaction lp1 20:59 Drug: NS 0.9% 1000 ml Route: IV; Rate: 1000 ml; Site: left forearm; ea 22:15 Follow up: IV Status: Completed infusion; IV Intake: 1000ml lp1 21:24 Drug: morphine 2 mg Route: IVP; Site: left forearm; lp1 21:45 Follow up: Response: Pain is decreased lp1 21:27 CANCELLED (Duplicate Order): morphine 2 mg IVP in left forearm once; RASS on ADMIN: lp1 Combtv4, Very Agttd3, Agttd2, Rstlss1, AlertClm0, Drwsy-1, Lt Sdtn-2, Mod Sdtn-3, Dp Sdtn-4, UnArsble-5 22:15 Drug: Zofran (Ondansetron) 4 mg Route: IVP; Site: left forearm; lp1 23:24 Follow up: Response: No adverse reaction lp1 22:16 CANCELLED (wrong medication): Rocephin (cefTRIAXone) 1 grams IV at per protocol once; mh7 Given slow IV push per pharmacy instructions 22:16 CANCELLED (wrong medication): Flagyl (metroNIDAZOLE) 500 mg 100 ml IVPB at 200 ml/hr 7 once over 30 mins 22:45 Drug: Cefepime 1 grams Route: IVPB; Rate: 200 ml/hr; Infused Over: 30 mins; Site: left lp1 forearm; 23:15 Follow up: IV Status: Completed infusion; IV Intake: 10ml lp1 23:00 Drug: vancoMYCIN 1 grams Route: IVPB; Infused Over: 2 hrs; Site: left forearm; lp1 0516 00:23 Follow up: IV Status: Infusion continued upon admission 1 08/26 23:00 Drug: NS 0.9% 1000 ml Route: IV; Rate: 125 ml/hr; Site: left forearm; lp1 0516 00:22 Follow up: IV Status: Infusion continued upon admission lp1 08/26 23:32 Drug: GI Cocktail without - (Maalox Suspension 30 ml, Lidocaine Liquid 2 % 15 lp1 ml) Route: PO; 08/27 00:22 Follow up: Response: No adverse reaction lp1 Intake: 08/26 22:15 IV: 1000ml; Total: 1000ml. lp1 23:15 IV: 10ml; Total: 1010ml. 1 Outcome: 22:19 Decision to Hospitalize by Provider. mh7 23:28 Condition: stable lp1 23:28 Instructed on the need for admit. 08/27 00:21 Admitted to Med/surg via wheelchair, room 220, with chart, Report called to KIRIT Ambrose lp1 00:34 Patient left the ED. lp1 Signatures: Dispatcher [employer] EDCarisa Winston RN RN aj1 Halie Johnson RN RN lp1 Sonal Alfredo am2 Claudine Ko RN RN ea Holmes, Maurice, MD MD 7 Corrections: (The following items were deleted from the chart) 08/26 21:26 21:24 morphine 2 mg IVP in left forearm lp1 lp1
--- NOTE | 2020-08-26 22:20 | EDPHYS ---
Physician Documentation [facility] Name: Melissa De Oliveira Age: 54 yrs Sex: Female : 1965 Arrival Date: 08/26/2020 Time: 18:28 Bed 6 Private MD: ED Physician Fracisco Gurrola HPI: 08/26 19:16 This 54 yrs old Female presents to ER via Ambulatory with complaints of mh7 Diarrhea, General Weakness. 19:16 The patient presents to the emergency department with diarrhea, that is intermittent, mh7 abdominal pain, of the right upper quadrant and left upper quadrant, described as intermittent, vague,\\E\\ waxing and waning, and does not radiate. Onset: The symptoms/episode began/occurred 4 day(s) ago. Possible causes: unknown. The symptoms are aggravated by food , The symptoms are alleviated by nothing. Associated signs and symptoms: Pertinent positives: abdominal pain, diarrhea, Pertinent negatives: anorexia, belching, constipation, dysuria, fever, flatulence, GI bleeding, hematuria, nausea, vaginal discharge, vomiting. Severity of symptoms: At their worst the symptoms were moderate 2 day(s) ago, in the emergency department the symptoms are unchanged despite home interventions. 19:16 Associated signs and symptoms: Pertinent positives: generalized fatigue, dizziness, mh7 lightheaded. 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 Flu vaccine is up to date. - Social history:: Smoking status: Patient/guardian denies using tobacco. ROS: 19:16 Constitutional: Negative for fever, chills, and weight loss, Eyes: Negative for injury, mh7 pain, redness, and discharge, ENT: Negative for injury, pain, and discharge, Neck: Negative for injury, pain, and swelling, Cardiovascular: Negative for chest pain, palpitations, and edema, Respiratory: Negative for shortness of breath, cough, wheezing, and pleuritic chest pain, Back: Negative for injury and pain, : Negative for injury, bleeding, discharge, and swelling, MS/Extremity: Negative for injury and deformity, Skin: Negative for injury, rash, and discoloration, Neuro: Negative for headache, weakness, numbness, tingling, and seizure, Psych: Negative for depression, anxiety, suicide ideation, homicidal ideation, and hallucinations, Allergy/Immunology: Negative for hives, rash, and allergies, Endocrine: Negative for neck swelling, polydipsia, polyuria, polyphagia, and marked weight changes, Hematologic/Lymphatic: Negative for swollen nodes, abnormal bleeding, and unusual bruising. Exam: 19:16 Constitutional: This is a well developed, well nourished patient who is awake, alert, mh7 and in no acute distress. Head/Face: Normocephalic, atraumatic. Eyes: Pupils equal round and reactive to light, extra-ocular motions intact. Lids and lashes normal. Conjunctiva and sclera are non-icteric and not injected. Cornea within normal limits. Periorbital areas with no swelling, redness, or edema. 19:16 Neck: Trachea midline, no thyromegaly or masses palpated, and no cervical lymphadenopathy. Supple, full range of motion without nuchal rigidity, or vertebral point tenderness. No Meningismus. Chest/axilla: Normal chest wall appearance and motion. Nontender with no deformity. No lesions are appreciated. 19:16 Respiratory: Lungs have equal breath sounds bilaterally, clear to auscultation and percussion. No rales, rhonchi or wheezes noted. No increased work of breathing, no retractions or nasal flaring. 19:16 Back: No spinal tenderness. No costovertebral tenderness. Full range of motion. Skin: Warm, dry with normal turgor. Normal color with no rashes, no lesions, and no evidence of cellulitis. MS/ Extremity: Pulses equal, no cyanosis. Neurovascular intact. Full, normal range of motion. Neuro: Awake and alert, GCS 15, oriented to person, place, time, and situation. Cranial nerves II-XII grossly intact. Motor strength 5/5 in all extremities. Sensory grossly intact. Cerebellar exam normal. Normal gait. Psych: Awake, alert, with orientation to person, place and time. Behavior, mood, and affect are within normal limits. 19:16 ENT: Mouth: Lips: dry, Oral mucosa: dry, Tongue: dry, Posterior pharynx: is normal, airway is patent, Voice: is normal. 19:16 Cardiovascular: Rate: tachycardic, Rhythm: regular, Pulses: no pulse deficits are appreciated, Heart sounds: normal, normal S1and S2, Edema: is not appreciated, JVD: is not appreciated. 19:16 Abdomen/GI: Inspection: abdomen appears normal, Bowel sounds: normal, in all quadrants, Palpation: mild abdominal tenderness, in the epigastric area, right upper quadrant and left upper quadrant, mass, is not appreciated, rebound tenderness, is not appreciated, voluntary guarding, is not appreciated, involuntary guarding, is not appreciated, no appreciated organomegaly, Rectal exam: the exam is deferred, because of patient request, Indicators: McBurney's point is not tender, Hairston's sign is negative, Rovsing's sign is negative, Obturator sign is negative, Psoas sign is negative, Liver: no appreciated palpable abnormalities, Hernia: not appreciated. Vital Signs: 18:40 BP 81 / 63; Pulse 105; Resp 22; Temp 97.8; Pulse Ox 98% on R/A; Weight 47.17 kg (R); aj1 Height 5 ft. 4 in. (162.56 cm) (R); Pain 7/10; 19:40 BP 116 / 72; Pulse 90; Resp 18; Pulse Ox 98% on R/A; Pain 0/10; lp1 21:00 BP 134 / 76; Pulse 89; Resp 18; Pulse Ox 100% on R/A; lp1 21:36 BP 137 / 84; Pulse 88; Resp 14; Pulse Ox 100% on R/A; lp1 22:20 BP 151 / 86; Pulse 92; Resp 16; Pulse Ox 100% on R/A; ea 23:30 BP 142 / 81; Pulse 90; Resp 14; Pulse Ox 99% on R/A; lp1 08/27 00:05 BP 160 / 84; Pulse 90; Resp 14; Temp 98(O); Pulse Ox 95% on R/A; lp1 08/26 18:40 Body Mass Index 17.85 (47.17 kg, 162.56 cm) aj1 MDM: 08/26 22:17 Differential diagnosis: Nonspecific abd pain, gastritis, diverticulitis, viral [facility] gastroenteritis, gastroenteritis. Data reviewed: vital signs, nurses notes, old medical records, lab test result(s), CBC, electrolytes, urinalysis, radiologic studies, CT scan. Data interpreted: Pulse oximetry: on room air is 100 %. Interpretation: normal. Counseling: I had a detailed discussion with the patient and/or guardian regarding: the historical points, exam findings, and any diagnostic results supporting the discharge/admit diagnosis, lab results, radiology results, the need for further work-up and treatment in the hospital. Response to treatment: the patient's symptoms have markedly improved after treatment. 22:19 Patient medically screened. [facility] 08/26 19:00 Order name: Basic Metabolic Panel [facility] 08/26 19:00 Order name: CBC with Diff; Complete Time: 19:41 [facility] 08/26 19:00 Order name: Hepatic Function; Complete Time: 19:58 [facility] 08/26 19:00 Order name: Lipase; Complete Time: 19:58 [facility] 08/26 19:01 Order name: Magnesium; Complete Time: 19:58 [facility] 08/26 19:01 Order name: Basic Metabolic Panel; Complete Time: 19:58 [facility] 08/26 19:01 Order name: Lactate; Complete Time: 19:58 [facility] 08/26 19:02 Order name: Stool Culture [facility] 08/26 19:02 Order name: Rotavirus Antigen [facility] 08/26 19:02 Order name: Ova And Parasites [facility] 08/26 19:02 Order name: Fecal Leukocyte Stain [facility] 08/26 19:02 Order name: Troponin (emerg Dept Use Only); Complete Time: 19:58 [facility] 08/26 21:54 Order name: COVID-19 : Document "Date of Symptom Onset" if Symptomatic. 08/26 19:42 Order name: CT Abd/Pelvis - IV Contrast Only; Complete Time: 21:54 [facility] 08/26 22:01 Order name: Urine Culture [facility] 08/26 22:02 Order name: Blood Culture Adult (2) [facility] 08/26 22:03 Order name: Urine Dipstick-Ancillary [facility] 08/26 22:21 Order name: CDIFF [facility] 08/26 22:21 Order name: C.difficile GDH Ag [facility] 08/26 23:37 Order name: SARS-COV-2 RT PCR [facility] 08/26 19:00 Order name: IV Saline Lock; Complete Time: 20:48 [facility] 08/26 19:00 Order name: Labs collected and sent; Complete Time: 20:48 [facility] 08/26 19:00 Order name: Urine Dipstick-Ancillary (obtain specimen); Complete Time: 23:03 [facility] 08/26 19:00 Order name: EKG - Nurse/Tech; Complete Time: 21:29 [facility] 08/26 22:17 Order name: Wang; Complete Time: 22:58 mh7 Administered Medications: 20:58 Drug: Pepcid (famotidine) 20 mg Route: IVP; Site: left forearm; ea 21:27 Follow up: Response: No adverse reaction lp1 20:59 Drug: NS 0.9% 1000 ml Route: IV; Rate: 1000 ml; Site: left forearm; ea 22:15 Follow up: IV Status: Completed infusion; IV Intake: 1000ml lp1 21:24 Drug: morphine 2 mg Route: IVP; Site: left forearm; lp1 21:45 Follow up: Response: Pain is decreased lp1 21:27 CANCELLED (Duplicate Order): morphine 2 mg IVP in left forearm once; RASS on ADMIN: lp1 Combtv4, Very Agttd3, Agttd2, Rstlss1, AlertClm0, Drwsy-1, Lt Sdtn-2, Mod Sdtn-3, Dp Sdtn-4, UnArsble-5 22:15 Drug: Zofran (Ondansetron) 4 mg Route: IVP; Site: left forearm; lp1 23:24 Follow up: Response: No adverse reaction lp1 22:16 CANCELLED (wrong medication): Rocephin (cefTRIAXone) 1 grams IV at per protocol once; mh7 Given slow IV push per pharmacy instructions 22:16 CANCELLED (wrong medication): Flagyl (metroNIDAZOLE) 500 mg 100 ml IVPB at 200 ml/hr mh7 once over 30 mins 22:45 Drug: Cefepime 1 grams Route: IVPB; Rate: 200 ml/hr; Infused Over: 30 mins; Site: left lp1 forearm; 23:15 Follow up: IV Status: Completed infusion; IV Intake: 10ml lp1 23:00 Drug: vancoMYCIN 1 grams Route: IVPB; Infused Over: 2 hrs; Site: left forearm; 1 08/27 00:23 Follow up: IV Status: Infusion continued upon admission lp1 08/26 23:00 Drug: NS 0.9% 1000 ml Route: IV; Rate: 125 ml/hr; Site: left forearm; 1 08/27 00:22 Follow up: IV Status: Infusion continued upon admission lp1 08/26 23:32 Drug: GI Cocktail without - (Maalox Suspension 30 ml, Lidocaine Liquid 2 % 15 lp1 ml) Route: PO; 08/27 00:22 Follow up: Response: No adverse reaction lp1 Disposition: 08/26/20 22:19 Hospitalization ordered by Raymond Benitez for Inpatient Admission. Preliminary diagnosis are Emphysematous Cystitis, Diarrhea, Dehydration. - Bed requested for Telemetry/MedSurg (Inpatient). - Status is Inpatient Admission. lp1 - Condition is Stable. - Problem is new. - Symptoms have improved. Signatures: Dispatcher [employer] EDMS Carisa Phillip RN RN aj1 Halie Johnson RN RN lp1 José Miguel Lacey, SCOOPING MACHINE TENDER-C SCOOPING MACHINE TENDER-July1 Gertrudis Cabezas RN RN cg Antunez, Elena, RN RN ea Holmes, Maurice, MD MD mh7 Corrections: (The following items were deleted from the chart) 08/26 21:27 21:24 morphine 2 mg IVP in left forearm once; RASS on ADMIN: Combtv4, Very Agttd3, lp1 Agttd2, Rstlss1, AlertClm0, Drwsy-1, Lt Sdtn-2, Mod Sdtn-3, Dp Sdtn-4, UnArsble-5 given. 1 21:27 21:27 morphine 2 mg IVP in left forearm once; RASS on ADMIN: Combtv4, Very Agttd3, lp1 Agttd2, Rstlss1, AlertClm0, Drwsy-1, Lt Sdtn-2, Mod Sdtn-3, Dp Sdtn-4, UnArsble-5 ordered. lp1 22:16 22:03 Rocephin (cefTRIAXone) 1 grams IV at per protocol once; Given slow IV push per [facility] pharmacy instructions ordered. [facility] :16 22:03 Flagyl (metroNIDAZOLE) 500 mg 100 ml IVPB at 200 ml/hr once over 30 mins ordered. [place] [id number] 23:40 22:19 Hospitalization Ordered by Raymond Benitez DO for Inpatient Admission. Preliminary cg diagnosis is Emphysematous Cystitis; Diarrhea; Dehydration. Bed requested for Telemetry/MedSurg (Inpatient). Status is Inpatient Admission. Condition is Stable. Problem is new. Symptoms have improved. [facility] 08/27 00:34 08/26 23:40 08/26/2020 22:19 Hospitalization Ordered by Raymond Benitez DO for Inpatient lp1 Admission. Preliminary diagnosis is Emphysematous Cystitis; Diarrhea; Dehydration. Bed requested for Telemetry/MedSurg (Inpatient). Status is Inpatient Admission. Condition is Stable. Problem is new. Symptoms have improved. cg
[2020-08-26] MEDS ORDERED: METRONIDAZOLE 500mg IVPB 0 MG/0 ML BAG IV ONE (22:30)
[2020-08-26] MEDS ORDERED: CEFTRIAXONE/SWI 1gm 1 GM/10 ML SYR ONE (22:30)
[2020-08-26] MEDS ORDERED: ONDANSETRON 4 MG/2 ML VIAL ONE (22:34)
[2020-08-26] MEDS ORDERED: NA CHLORIDE 0.9% 250 ML ONE (22:43)
[2020-08-26] MEDS ORDERED: VANCOMYCIN 1 GM/VIAL ONE (22:43)
[2020-08-26] MEDS ORDERED: CEFEPIME/SWI 1gm 10 ML ONE (22:44)
--- NOTE | 2020-08-26 23:22 | P.HP ---
Certification for Inpatient Patient admitted to: Inpatient With expected LOS: >2 Midnights Patient will require the following post-hospital care: None Practitioner: I am a practitioner with admitting privileges, knowledge of patient current condition, hospital course, and medical plan of care. Services: Services provided to patient in accordance with Admission requirements found in Title 42 Section 412.3 of the Code of Federal Regulations Patient History Date of Service: 08/26/20 Reason for admission: Emphysematous cystitis History of Present Illness: 54-year-old female with history of diabetes mellitus type 2, neuropathy presents emergency department for left-sided abdominal pain and diarrhea for last 4 days. Patient evaluated in the emergency department, labs significant for hemoglobin 10.6 hematocrit 30.9 BUN 38 GFR 55, glucose 209 alk- phos 121 urine dip nitrite positive leuk esterase positive trace blood. CT abdomen pelvis demonstrates emphysematous cystitis, 4 cm area of narrowing involving the transverse colon which may represent neoplasm with direct visualization recommended, prominence of the biliary tree which can be a normal finding status postcholecystectomy, pathology such as stricture worst of the distal duct can also resolved as appears to be correlated with appropriate labs. Patient reports that he has noticed pneumaturia over the course of the last 4 days. When I saw the patient in the ER she is awake, alert, oriented x3, patient does not appear septic. Case was discussed with urology recommended broad-spectrum antibiotics and close monitoring at this time. Allergies codeine Allergy (Verified 05/23/20 11:53) Hives tramadol Allergy (Verified 03/25/18 03:14) Hives methylphenidate [From Ritalin] Adverse Reaction (Verified 03/25/18 03:14) seizures Home Medications: Gabapentin 300 mg PO BID 05/23/20 Insulin Detemir [Levemir Flextouch] 30 unit SQ DAILY 05/23/20 Quetiapine [Seroquel*] 100 mg PO BEDTIME 05/23/20 Levofloxacin [Levaquin] 500 mg PO DAILY #14 tablet 05/27/20 Metoprolol Tartrate [Lopressor*] 25 mg PO BID 6AM 6PM #60 tab 05/27/20 Ascorbate Calcium [Vitamin C] 500 mg PO TID #90 tablet 05/29/20 Cholecalciferol (Vitamin D3) [Vitamin D 1000 Iu Tab] 2,000 unit PO DAILY #60 tab 05/29/20 Cyanocobalamin (Vitamin B-12) [Vitamin B-12] 1,000 mcg PO DAILY #90 capsule 05/29/20 Ferrous Sulfate [Iron] 325 mg PO BID #60 tablet 05/29/20 Folic Acid 1 mg PO DAILY #90 tablet 05/29/20 Lactobacillus Acidophilus [Acidophilus Lactobacilli] 1 each PO BID #30 capsule 05/29/20 Thiamine HCl 100 mg PO DAILY #90 tablet 05/29/20 Zinc Sulfate [Zinc Sulfate*] 220 mg PO DAILY #30 cap 05/29/20 predniSONE [Deltasone*] 10 mg PO SEECOM #21 tab 05/29/20 - Past Medical/Surgical History Diabetic: Yes -: DM -: Neuropathy -: cholecystectomy -: hysterectomy -: appendectomy -: Psychosocial/ Personal History: Patient is disabled, lives with daughter - Family History Father -: Hypertension, Cancer - Social History Smoking Status: Never smoker Alcohol use: No CD- Drugs: No Caffeine use: No Place of Residence: Home Review of Systems 10-point ROS is otherwise unremarkable Gastrointestinal: Nausea, Abdominal Pain, Diarrhea Genitourinary: As per HPI Physical Examination - Physical Exam General: Alert, In no apparent distress HEENT: Atraumatic, PERRLA, Mucous membr. moist/pink Neck: Supple, 2+ carotid pulse no bruit, No LAD Respiratory: Clear to auscultation bilaterally, Normal air movement Cardiovascular: Regular rate/rhythm, Normal S1 S2 Gastrointestinal: Normal bowel sounds, No masses, No rebound, No guarding, Tenderness (Mild to moderate left upper and lower quadrant abdominal tenderness) Musculoskeletal: No tenderness Integumentary: No rashes Neurological: Normal speech, Normal strength at 5/5 x4 extr, Normal tone, Normal affect - Studies Laboratory Data (last 24 hrs) 08/26/20 19:16: WBC 6.30, Hgb 10.6 L, Hct 30.9 L, Plt Count 386 08/26/20 19:16: Sodium 138, Potassium 4.2, BUN 38 H, Creatinine 1.05, Glucose 209 H, Magnesium 2.2, Total Bilirubin 0.4, AST 29, ALT 37, Alkaline Phosphatase 121 H, Lipase 204 Assessment and Plan - Plan Assessment Emphysematous cystitis Abdominal pain, diarrhea 4 cm portion of narrowing of the transverse colon Diabetes mellitus type 2-insulin dependent Neuropathy Plan Emphysematous cystitis: Case was discussed with urology, continue broad- spectrum antibiotics, Wang catheter, close monitoring. Infectious disease consulted for additional input. Continue with Zosyn at this time for additional anaerobic coverage as patient is also experiencing diarrhea. At this time it is reasonable to manage patient with IV antibiotics and monitor for worsening of symptoms, if patient does not improve with broad-spectrum antibiotics she could require neurological intervention. Continue clear liquids, advance as tolerated. DVT prophylaxis with Lovenox 40 mg subcutaneous once daily Abdominal pain, diarrhea: Stool studies including C. diff ordered. Patient does report taking antibiotics approximately 2-3 weeks ago for cellulitis. States he has not demonstrated any diverticulitis or other findings to explain patient's diarrhea. Continue Zosyn as above, probiotics, IV fluids, clear liquids for now advance as tolerated. P.r.n. pain medications. 4 cm portion of narrowing of the transverse colon: The patient has never had a colonoscopy, will need 1 at discharge, patient informed of this. Diabetes mellitus type 2-insulin dependent: A.c. hs Accu-Chek, sliding scale insulin therapy. Patient reports A1c approximately 1 month ago was 8 continue Lantus. Neuropathy: Continue home medications. Discharge Plan: Home Plan to discharge in: Greater than 2 days - Advance Directives Does patient have a Living Will: No Does patient have a Durable POA for Healthcare: No - Code Status/Comfort Care Code Status Assessed: Yes (Full code) Critical Care: No Time Spent Managing Pts Care (In Minutes): 55
[2020-08-26] MEDS ORDERED: LIDOCAINE VISCOUS 2% SOLN 15 ML UDC ONE (23:49)
[2020-08-26] MEDS ORDERED: MAGNES/ALUMIN/SIMET 30ML UCUP ONE (23:49)
[2020-08-27] MEDS ORDERED: D50W 25 GM/50 ML SYRINGE IV PRN (00:12)
[2020-08-27] MEDS ORDERED: ACETAMINOPHEN 500 MG TAB PO PRN (00:12)
[2020-08-27] MEDS ORDERED: GLUCAGON 1 MG/VIAL IM PRN (00:12)
[2020-08-27] MEDS: NA CHLORIDE 0.9% 1,000 ML IV SCH ×2 (01:00→08:48)
[2020-08-27] MEDS ORDERED: PIPER/TAZO/NS 3.375gm 3.375 GM/100 ML BAG IVPB ONE (01:00)
[2020-08-27] MEDS ORDERED: PIPERACIL/TAZO 3.375 GM VIAL IV ONE (02:53)
[2020-08-27] MEDS ORDERED: NA CHLORIDE 0.9% 100 ML ONE (02:53)
[2020-08-27 06:23] LABS: Absolute Lymphocytes (CBC) 1.6 K/uL (0.7-4.9); Basophils % 0.4 % (0-1.3); Hematocrit 28.5 % (36.0-45.0); Lymphocytes % 21.4 % (15.3-44.8); MPV 7.5 fL (7.6-11.3)
[2020-08-27 06:45] LABS: Albumin 3.3 g/dL (3.4-5.0); Bilirubin Total 0.3 mg/dL (0.2-1.0); Potassium 3.8 mmol/L (3.5-5.1); Protein, Total 6.7 g/dL (6.4-8.2)
[2020-08-27 06:54] LABS: Thyroid Stimulating Hormone 3.83 uIU/mL (0.360-3.740)
[2020-08-27] MEDS: INSULIN -REGULAR HUMAN 50 UNIT/0.5 ML ML SQ SCH ×4 (07:30→21:00)
[2020-08-27] MEDS ORDERED: PNEUMOCOCCAL VACCINE 0.5 ML IMVAC ONE (08:00)
[2020-08-27] MEDS: INSULIN GLARGINE 100 UNITS/ML SQ SCH (08:00)
[2020-08-27] MEDS ORDERED: POTASSIUM CL SA 10 MEQ TAB PO ONE (09:00)
[2020-08-27] MEDS: ENOXAPARIN 40 MG/0.4 ML SQ SCH (09:00)
[2020-08-27] MEDS: LACTOBACILLUS/ACIDOPHILUS TAB PO SCH ×2 (09:11→21:00)
[2020-08-27] MEDS: PIPER/TAZO/NS 3.375gm 3.375 GM/100 ML BAG IVPB SCH ×2 (09:11→16:57)
[2020-08-27] MEDS: ONDANSETRON 4 MG/2 ML VIAL IV PRN ×3 (09:20→23:41)
--- NOTE | 2020-08-27 15:39 | P.PN ---
Subjective Date of Service: 08/27/20 Chief Complaint: Emphysematous cystitis Subjective: No new changes (no significant change. reports some nausea overnight, unsure if from pain medication or not, had BM last night. L abd/flank pain. no appetite) Review of Systems 10-point ROS is otherwise unremarkable Physical Examination - Vital Signs Temperature: 99.5 F Blood Pressure: 120/61 Pulse: 106 Respirations: 16 Pulse Ox (%): 96 - Studies Laboratory Data (last 24 hrs) 08/26/20 19:16: WBC 6.30, Hgb 10.6 L, Hct 30.9 L, Plt Count 386 08/26/20 19:16: Sodium 138, Potassium 4.2, BUN 38 H, Creatinine 1.05, Glucose 209 H, Magnesium 2.2, Total Bilirubin 0.4, AST 29, ALT 37, Alkaline Phosphatase 121 H, Lipase 204 Assessment & Plan Physician Review Additional Text: Physical Exam Gen: NAD HEENT: normal conjunctiva, sclera anicteric CV: RRR, no murmur/rub/gallob, no edema Pulm: Clear to auscultation bilaterally, nonlabored on room air Abd: Soft, nondistended, mildly tender to palpation in the left side Ext: no edema, no rash, no lesions Problem List Emphysematous cystitis Abdominal pain, diarrhea 4 cm portion of narrowing of the transverse colon Diabetes mellitus type 2-insulin dependent Neuropathy -continue broad spectrum antibiotics - Zosyn -continue Wang catheter. -ID consulted -p.r.n. pain control -stool studies sent for diarrhea -continue IVF, CLD, ADAT -4cm portion of narrowing of transverse colon noted on CT, will need C-scope in near future -sliding scale insulin, accucheks VTE: lovenox Code: full Dispo: anticipate hospitalization > 2 days Time Spent Managing Pts Care (In Minutes): 35
[2020-08-27] MEDS: MORPHINE 2 MG/ML SYR IV PRN (16:57)
[2020-08-27] MEDS: ENSURE CLEAR 200 ML CAN PO SCH (21:00)
[2020-08-28] MEDS: NA CHLORIDE 0.9% 1,000 ML IV SCH ×4 (01:39→20:14)
[2020-08-28] MEDS: PIPER/TAZO/NS 3.375gm 3.375 GM/100 ML BAG IVPB SCH ×3 (01:55→17:00)
[2020-08-28 05:27] LABS: Absolute Lymphocytes (CBC) 2.4 K/uL (0.7-4.9); Basophils % 0.4 % (0-1.3); Hematocrit 25.8 % (36.0-45.0); Lymphocytes % 27.7 % (15.3-44.8); MPV 7.1 fL (7.6-11.3); RBC Red Blood Cell Count 3.07 M/uL (3.86-4.86)
[2020-08-28 05:59] LABS: ALT/SGPT 20 U/L (12-78); AST/SGOT 15 U/L (15-37); Albumin 2.9 g/dL (3.4-5.0); Alkaline Phosphatase 90 U/L (45-117); BUN Blood Urea Nitrogen 11 mg/dL (7-18); Bicarbonate 22 mmol/L (21-32); Bilirubin Total 0.4 mg/dL (0.2-1.0); Glucose Level 104 mg/dL (74-106); Potassium 3.5 mmol/L (3.5-5.1); Protein, Total 6.3 g/dL (6.4-8.2); Sodium Level 142 mmol/L (136-145)
[2020-08-28] MEDS: INSULIN -REGULAR HUMAN 50 UNIT/0.5 ML ML SQ SCH ×4 (07:30→20:14)
[2020-08-28] MEDS: INSULIN GLARGINE 100 UNITS/ML SQ SCH (07:51)
[2020-08-28] MEDS: LACTOBACILLUS/ACIDOPHILUS TAB PO SCH ×2 (08:24→20:14)
[2020-08-28] MEDS: ONDANSETRON 4 MG/2 ML VIAL IV PRN ×3 (08:24→20:15)
[2020-08-28] MEDS: ENOXAPARIN 40 MG/0.4 ML SQ SCH (08:24)
[2020-08-28] MEDS: ENSURE CLEAR 200 ML CAN PO SCH ×2 (08:25→20:14)
[2020-08-28] MEDS ORDERED: KCL 20 MEQ/100 mL IVPB 20 MEQ/100 ML BAG IV SCH (09:00)
--- NOTE | 2020-08-28 09:30 | P.CNS ---
Date of Consult: 08/28/20 Chief Complaint: Emphysematous cystitis History of Present Illness: Patient is a 54-year-old female with a past medical history of diabetes mellitus type 2 and neuropathy who presented to the emergency department due to left- sided abdominal pain and diarrhea for the past 4-5 days. In the ED patient had lab significant for hemoglobin 10.6 hematocrit 30.9, BUN 38 GFR 55 glucose 209 alk-phos 121 and urine dipstick positive for nitrates and leuks esterase with trace blood noted. CT abdomen pelvis showed emphysematous cystitis in a 4 cm area of narrowing involving the transverse colon which may breath presented neoplasm. Patient reports that she had noticed pneumaturia over the course of the last 4 days. UA culture preliminary reports grew gram-negative rods. Awaiting full culture report. Patient has been started on empiric IV Zosyn as well as a probiotic. Patient states that her sugars are fairly well controlled at home, however per review the patient's most recent hemoglobin A1c was 8.0. Patient initiated on sliding scale insulin. Patient denies shortness of breath, chest pain, or diarrhea. Patient states that she is still having episodes of nausea with vomiting. No blood in vomit patient states that the vomit have a greenish tinge to it. She also reports some abdominal pain. 10 point ROS performed with pertinent positives and negatives listed above. Allergies codeine Allergy (Verified 05/23/20 11:53) Hives tramadol Allergy (Verified 03/25/18 03:14) Hives methylphenidate [From Ritalin] Adverse Reaction (Verified 03/25/18 03:14) seizures Home Medications: Gabapentin 300 mg PO BID 05/23/20 Insulin Detemir [Levemir Flextouch] 10 unit SQ DAILY 05/23/20 Semaglutide [Ozempic] 0.25 mg SQ Q7D 08/27/20 - Past Medical/Surgical History Diabetic: Yes -: DM -: Neuropathy -: cholecystectomy -: hysterectomy -: appendectomy -: Psychosocial/ Personal History: Patient is disabled, lives with daughter - Family History Father Medical History: Hypertension, Cancer - Social History Smoking Status: Unknown if ever smoked Alcohol use: No CD- Drugs: No Caffeine use: No Place of Residence: Home Review of Systems 10-point ROS is otherwise unremarkable Physical Examination Temp Pulse Resp BP Pulse Ox 98.6 F 92 H 16 123/57 L 97 08/28/20 08:00 08/28/20 08:00 08/28/20 08:00 08/28/20 08:00 08/28/20 08:00 General: Alert, In no apparent distress HEENT: Atraumatic, Normocephalic Neck: Supple, 2+ carotid pulse no bruit Respiratory: Clear to auscultation bilaterally, Normal air movement Cardiovascular: No edema, Normal pulses Capillary refill: <2 Seconds Gastrointestinal: Hyperactive, Tenderness (To left lower quadrant) Musculoskeletal: No clubbing, No swelling Integumentary: No rashes, No breakdown Urinary: Wang catheter Temp Pulse Resp BP Pulse Ox 98.6 F 92 H 16 123/57 L 97 08/28/20 08:00 08/28/20 08:00 08/28/20 08:00 08/28/20 08:00 08/28/20 08:00 Laboratory Last Values WBC 6.30 K/uL (4.3-10.9) 08/26/20 19:16 RBC 3.69 M/uL (3.86-4.86) L 08/26/20 19:16 Hgb 10.6 g/dL (12.0-15.0) L 08/26/20 19:16 Hct 30.9 % (36.0-45.0) L 08/26/20 19:16 MCV 83.6 fL (80-100) 08/26/20 19:16 MCH 28.6 pg (27.0-35.0) 08/26/20 19:16 MCHC 34.2 g/dL (32.0-36.0) 08/26/20 19:16 RDW 16.5 % (12.1-15.2) H 08/26/20 19:16 Plt Count 386 K/uL (152-406) 08/26/20 19:16 MPV 7.2 fL (7.6-11.3) L 08/26/20 19:16 Neutrophils % 59.7 % (41.7-73.7) 08/26/20 19:16 Lymphocytes % 31.2 % (15.3-44.8) 08/26/20 19:16 Monocytes % 6.8 % (3.3-12.3) 08/26/20 19:16 Eosinophils % 1.7 % (0-4.4) 08/26/20 19:16 Basophils % 0.6 % (0-1.3) 08/26/20 19:16 Absolute Neutrophils 3.8 K/uL (1.8-8.0) 08/26/20 19:16 Absolute Lymphocytes 2.0 K/uL (0.7-4.9) 08/26/20 19:16 Absolute Monocytes 0.4 K/uL (0.1-1.3) 08/26/20 19:16 Absolute Eosinophils 0.1 K/uL (0-0.5) 08/26/20 19:16 Absolute Basophils 0.0 K/uL (0-0.5) 08/26/20 19:16 Sodium 138 mmol/L (136-145) 08/26/20 19:16 Potassium 4.2 mmol/L (3.5-5.1) 08/26/20 19:16 Chloride 106 mmol/L (98-107) 08/26/20 19:16 Carbon Dioxide 27 mmol/L (21-32) 08/26/20 19:16 BUN 38 mg/dL (7-18) H 08/26/20 19:16 Creatinine 1.05 mg/dL (0.55-1.3) 08/26/20 19:16 Estimated GFR 55 mL/min (=/>90) L 08/26/20 19:16 Glucose 209 mg/dL (74-106) H 08/26/20 19:16 Lactic Acid 1.1 mmol/L (0.4-2.0) 08/26/20 19:16 Calcium 9.1 mg/dL (8.5-10.1) 08/26/20 19:16 Magnesium 2.2 mg/dL (1.8-2.4) 08/26/20 19:16 Total Bilirubin 0.4 mg/dL (0.2-1.0) 08/26/20 19:16 Direct Bilirubin < 0.1 mg/dL (0-0.2) 08/26/20 19:16 AST 29 U/L (15-37) 08/26/20 19:16 ALT 37 U/L (12-78) 08/26/20 19:16 Alkaline Phosphatase 121 U/L (45-117) H 08/26/20 19:16 Rapid Troponin I < 0.02 ng/mL (0.0-0.045) 08/26/20 19:16 Serum Total Protein 7.9 g/dL (6.4-8.2) 08/26/20 19:16 Albumin 3.9 g/dL (3.4-5.0) 08/26/20 19:16 Globulin 4.0 g/dL (2.3-3.5) H 08/26/20 19:16 Albumin/Globulin Ratio 1.0 (1.1-1.8) L 08/26/20 19:16 Lipase 204 U/L (73-393) 08/26/20 19:16 Urine pH 5.0 (5.0-7.0) 08/26/20 22:00 Ur Specific [place] 1.025 (1.005-1.030) 08/26/20 22:00 Glucose (UA)(Auto) 1+ (Negative) H 08/26/20 22:00 Urine Ketones Negative (Negative) 08/26/20 22:00 Urine Blood Trace-intact (Negative) H 08/26/20 22:00 Urine Nitrite Positive (Negative) H 08/26/20 22:00 Ur Leukocyte Esterase Trace (Negative) H 08/26/20 22:00 Urine Total Protein 1+ (Negative) H 08/26/20 22:00 SARS-CoV-2 RNA (RT-PCR) Negative (NEGATIVE) 08/26/20 22:15 Conclusions/Impression: Antibiotics: Zosyn Start: 08/27 stop:09/10 Assessment: 1. emphysematous cystitis 2. Diabetes mellitus type 2 3. Neuropathy 5. Anemia Plan: 1. CT abdomen and pelvis showed : "Emphysematous cystitis as well as a 4 centimeter area of narrowing involves the transverse colon. This may represent neoplasm." Possible carcinoma of the colon could be a cause for the as pr oduction. Uncontrolled sugars could also be source. Recommend a 2 week antibiotic duration of IV Zosyn with CT imaging performed after completion of antibiotics to see if infection eradicated. Urine culture preliminary results grew gram-negative rods awaiting for full report Blood cultures negative. Stool cultures pending. Patient started on probiotic and a Wang catheter has been placed. Continue to monitor closely and monitor for signs of sepsis. 2. Maintain strict glucose control. Patient started on sliding scale insulin -Medical management per primary team -continue monitor CBC and BMP -continue to monitor for signs of infection
[2020-08-28] MEDS: MORPHINE 2 MG/ML SYR IV PRN (13:49)
--- NOTE | 2020-08-28 17:30 | P.PN ---
Subjective Date of Service: 08/28/20 Chief Complaint: Emphysematous cystitis Subjective: Improving (nausea/pain improving, no flatus, no BM overnight/today. denies abd distention, minimal PO intake (sips only)) Review of Systems 10-point ROS is otherwise unremarkable Physical Examination - Vital Signs Temperature: 98.3 F Blood Pressure: 146/69 Pulse: 87 Respirations: 18 Pulse Ox (%): 98 Assessment & Plan Physician Review Additional Text: Physical Exam Gen: NAD HEENT: normal conjunctiva, sclera anicteric CV: RRR, no murmur/rub/gallob, no edema Pulm: Clear to auscultation bilaterally, nonlabored on room air Abd: Soft, nondistended, mildly tender to palpation in the left abdomen Ext: no edema, no rash, no lesions Problem List Emphysematous cystitis Abdominal pain, diarrhea 4 cm portion of narrowing of the transverse colon Diabetes mellitus type 2-insulin dependent Neuropathy -continue broad spectrum antibiotics - Zosyn -continue Wang catheter, dc tomorrow -ID consulted, pt may need IV antibiotics / PICC, will discuss -p.r.n. pain control -stool studies sent for diarrhea, pt without BM -continue IVF, CLD, ADAT -4cm portion of narrowing of transverse colon noted on CT, will need C-scope in near future -sliding scale insulin, accucheks VTE: lovenox Code: full Dispo: anticipate dc in ~48hrs Time Spent Managing Pts Care (In Minutes): 35
[2020-08-29] MEDS: D50W 25 GM/50 ML VIAL IV PRN (00:48)
[2020-08-29] MEDS: PIPER/TAZO/NS 3.375gm 3.375 GM/100 ML BAG IVPB SCH ×2 (00:48→09:00)
[2020-08-29] MEDS: ONDANSETRON 4 MG/2 ML VIAL IV PRN ×4 (02:21→21:29)
[2020-08-29] MEDS: NA CHLORIDE 0.9% 1,000 ML IV SCH ×3 (04:19→17:39)
[2020-08-29 05:33] LABS: Absolute Lymphocytes (CBC) 2.2 K/uL (0.7-4.9); Basophils % 0.5 % (0-1.3); Hematocrit 25.3 % (36.0-45.0); Lymphocytes % 29.8 % (15.3-44.8); MPV 6.8 fL (7.6-11.3); RBC Red Blood Cell Count 3.06 M/uL (3.86-4.86)
[2020-08-29 05:59] LABS: ALT/SGPT 15 U/L (12-78); AST/SGOT 9 U/L (15-37); Albumin 2.7 g/dL (3.4-5.0); Alkaline Phosphatase 78 U/L (45-117); BUN Blood Urea Nitrogen 8 mg/dL (7-18); Bicarbonate 22 mmol/L (21-32); Bilirubin Total 0.5 mg/dL (0.2-1.0); Glucose Level 149 mg/dL (74-106); Magnesium 1.8 mg/dL (1.8-2.4); Potassium 3.4 mmol/L (3.5-5.1); Protein, Total 6.1 g/dL (6.4-8.2); Sodium Level 138 mmol/L (136-145)
[2020-08-29] MEDS: INSULIN -REGULAR HUMAN 50 UNIT/0.5 ML ML SQ SCH ×4 (07:30→21:00)
[2020-08-29] MEDS: INSULIN GLARGINE 100 UNITS/ML SQ SCH (08:00)
[2020-08-29] MEDS: LACTOBACILLUS/ACIDOPHILUS TAB PO SCH ×2 (08:24→21:00)
[2020-08-29] MEDS: ENSURE CLEAR 200 ML CAN PO SCH ×2 (08:25→21:00)
[2020-08-29] MEDS: ENOXAPARIN 40 MG/0.4 ML SQ SCH (08:26)
[2020-08-29] MEDS: MORPHINE 2 MG/ML SYR IV PRN ×3 (08:27→21:28)
[2020-08-29 08:38] VITALS: O2SAT 98
[2020-08-29] MEDS ORDERED: MAGNESIUM SULFATE 1 gm IVPB 1 GM/100 ML BAG IV ONE (09:00)
[2020-08-29] MEDS ORDERED: POTASSIUM CL SA 10 MEQ TAB PO ONE (09:00)
--- NOTE | 2020-08-29 14:27 | P.PN ---
Subjective Date of Service: 08/29/20 Chief Complaint: Emphysematous cystitis Patient complaining of persistent dysuria. She is also complaining of abdominal cramps which she relates to the Zosyn administration. She reports feeling better and wants her diet advanced. Physical Examination - Vital Signs Temperature: 98.6 F Blood Pressure: 137/65 Pulse: 84 Respirations: 16 Pulse Ox (%): 98 - Physical Exam General: Alert, In no apparent distress, Oriented x3 HEENT: Mucous membr. moist/pink Neck: JVD not distended Respiratory: Clear to auscultation bilaterally, Normal air movement Cardiovascular: No edema, Regular rate/rhythm, Normal S1 S2 Gastrointestinal: Normal bowel sounds, Soft and benign, Non-distended, No tenderness Musculoskeletal: No swelling Integumentary: No rashes Neurological: Normal strength at 5/5 x4 extr - Studies Microbiology Data (last 24 hrs): 08/26/20 22:00 Clean Catch Urine [place] Count - Final >100,000 CFU/ML. 08/26/20 22:00 Clean Catch Urine - Final Klebsiella Pneumoniae Assessment And Plan Physician Review Additional Text: Problem List Emphysematous cystitis Abdominal pain, diarrhea 4 cm portion of narrowing of the transverse colon Diabetes mellitus type 2-insulin dependent Neuropathy -urine culture is growing Klebsiella. -switch antibiotics to IV Levaquin. Infectious disease is planning to use of IV antibiotics followed by repeat imaging, and then oral antibiotics for another 2 weeks. -PICC line for antibiotics requested. -discontinue Wang catheterization. -ID is following -p.r.n. pain control -reduce IV fluid rate -4cm portion of narrowing of transverse colon noted on CT, will need colonoscopy in near future. -continue sliding scale insulin for glucose management. VTE: lovenox Code: full
[2020-08-29] MEDS: Levofloxacin500mg IV 500 MG/100 ML BAG IV SCH (16:17)
[2020-08-30] MEDS: NA CHLORIDE 0.9% 1,000 ML IV SCH ×3 (00:32→20:19)
[2020-08-30 01:15] VITALS: BMI 16.6
[2020-08-30] MEDS: FAMOTIDINE 20 MG TAB PO PRN ×2 (03:19→20:37)
[2020-08-30 04:02] LABS: Hematocrit 26.1 % (36.0-45.0); Lymphocytes % 33.3 % (15.3-44.8); MPV 7.3 fL (7.6-11.3); RBC Red Blood Cell Count 3.17 M/uL (3.86-4.86)
[2020-08-30 04:21] LABS: BUN Blood Urea Nitrogen 4 mg/dL (7-18); Bicarbonate 24 mmol/L (21-32); Glucose Level 82 mg/dL (74-106); Magnesium 1.9 mg/dL (1.8-2.4); Potassium 3.9 mmol/L (3.5-5.1); Sodium Level 140 mmol/L (136-145)
[2020-08-30] MEDS: INSULIN -REGULAR HUMAN 50 UNIT/0.5 ML ML SQ SCH ×4 (07:30→21:00)
[2020-08-30] MEDS: INSULIN GLARGINE 100 UNITS/ML SQ SCH (08:00)
[2020-08-30] MEDS: LACTOBACILLUS/ACIDOPHILUS TAB PO SCH ×2 (08:59→20:37)
[2020-08-30] MEDS: ENSURE CLEAR 200 ML CAN PO SCH (08:59)
[2020-08-30] MEDS: ONDANSETRON 4 MG/2 ML VIAL IV PRN ×3 (08:59→20:41)
[2020-08-30] MEDS: ENOXAPARIN 40 MG/0.4 ML SQ SCH (09:00)
[2020-08-30] MEDS ORDERED: POTASSIUM CL SA 10 MEQ TAB PO ONE (09:00)
[2020-08-30] MEDS: MORPHINE 2 MG/ML SYR IV PRN ×3 (09:00→20:41)
--- NOTE | 2020-08-30 11:25 | RAD REPORT ---
EXAM DESCRIPTION: RAD - Chest Single View - 08/30/2020 10:59 am CLINICAL HISTORY: PICC line placement COMPARISON: Portable May 29 FINDINGS: Portable chest was obtained following placement of a right upper extremity PICC line. The catheter tip is in the distal SVC.
--- NOTE | 2020-08-30 13:30 | P.PN ---
Subjective Date of Service: 08/30/20 Chief Complaint: Emphysematous cystitis Patient seen examined at bedside, still complaining of some abdominal cramping. Patient is still having excessive vomiting. Review of Systems 10-point ROS is otherwise unremarkable Physical Examination - Vital Signs Temperature: 97.4 F Blood Pressure: 133/60 Pulse: 90 Respirations: 18 Pulse Ox (%): 98 Assessment And Plan - Plan General: Alert, In no apparent distress HEENT: Atraumatic, Normocephalic Neck: Supple, 2+ carotid pulse no bruit Respiratory: Clear to auscultation bilaterally, Normal air movement Cardiovascular: No edema, Normal pulses Capillary refill: <2 Seconds Gastrointestinal: Hyperactive, Tenderness (To left lower quadrant) Musculoskeletal: No clubbing, No swelling Integumentary: No rashes, No breakdown Urinary: Wang catheter Conclusions/Impression: Antibiotics: cuurent: levaquin start: 08/29 stop: 09/10 DC: Zosyn Start: 08/27 stop:08/30 Assessment: 1. emphysematous cystitis 2. Diabetes mellitus type 2 3. Neuropathy 5. Anemia Plan: 1. CT abdomen and pelvis showed : "Emphysematous cystitis as well as a 4 centimeter area of narrowing involves the transverse colon. This may represent neoplasm." Possible carcinoma of the colon could be a cause for the gas production. Uncontrolled sugars could also be source. Recommend a 2 week antibiotic duration of IV Zosyn with CT imaging performed after completion of antibiotics to see if infection eradicated. Zosyn has been discontinued as it was causing patient's abdominal cramps, Levaquin started. Urine culture results grew Klebsiella. Blood cultures negative. Stool cultures pending. Patient started on probiotic and a Wang catheter has been placed. Continue to monitor closely and monitor for signs of sepsis. 2. Maintain strict glucose control. Patient started on sliding scale insulin -Medical management per primary team -continue monitor CBC and BMP -continue to monitor for signs of infection Physician Review Additional Text: Problem List Emphysematous cystitis Abdominal pain, diarrhea 4 cm portion of narrowing of the transverse colon Diabetes mellitus type 2-insulin dependent Neuropathy -urine culture is growing Klebsiella. -switch antibiotics to IV Levaquin. Infectious disease is planning to use of IV antibiotics followed by repeat imaging, and then oral antibiotics for another 2 weeks. -PICC line for antibiotics requested. -discontinue Wang catheterization. -ID is following -p.r.n. pain control -reduce IV fluid rate -4cm portion of narrowing of transverse colon noted on CT, will need colonoscopy in near future. -continue sliding scale insulin for glucose management. VTE: lovenox Code: full
[2020-08-30] MEDS: Levofloxacin500mg IV 500 MG/100 ML BAG IV SCH (14:55)
--- NOTE | 2020-08-30 17:58 | P.PN ---
Subjective Date of Service: 08/30/20 Chief Complaint: Emphysematous cystitis Patient complaining of nausea and vomiting. Physical Examination - Vital Signs Temperature: 97.4 F Blood Pressure: 133/60 Pulse: 90 Respirations: 18 Pulse Ox (%): 98 - Physical Exam General: Alert, In no apparent distress HEENT: Mucous membr. moist/pink Respiratory: Clear to auscultation bilaterally, Normal air movement Cardiovascular: No edema, Regular rate/rhythm, Normal S1 S2 Gastrointestinal: Normal bowel sounds, Soft and benign, No tenderness Musculoskeletal: No swelling, No tenderness Integumentary: No rashes Neurological: Normal strength at 5/5 x4 extr Assessment And Plan Physician Review Additional Text: Problem List Emphysematous cystitis Abdominal pain, diarrhea 4 cm portion of narrowing of the transverse colon Diabetes mellitus type 2-insulin dependent Neuropathy -urine culture is growing Klebsiella. -antibiotics switched to IV Levaquin. Infectious disease is planning to 2 weeks of IV antibiotics followed by repeat imaging, and then oral antibiotics for a nother 2 weeks. -PICC line placed for antibiotics. -ID is following -p.r.n. pain control -4cm portion of narrowing of transverse colon noted on CT, will need colonoscopy in near future. -continue sliding scale insulin for glucose management. -antiemetics as needed. VTE: lovenox Code: full
[2020-08-30] MEDS: GLUCERNA SHAKE 237 ML CAN PO SCH (21:00)
[2020-08-31] MEDS: D50W 25 GM/50 ML VIAL IV PRN (00:08)
[2020-08-31] MEDS: MORPHINE 2 MG/ML SYR IV PRN (01:46)
[2020-08-31] MEDS: NA CHLORIDE 0.9% 1,000 ML IV SCH (03:47)
[2020-08-31 06:09] LABS: Basophils % 0.8 % (0-1.3); Hematocrit 24.6 % (36.0-45.0); MPV 6.9 fL (7.6-11.3); RBC Red Blood Cell Count 2.98 M/uL (3.86-4.86)
[2020-08-31 06:19] LABS: BUN Blood Urea Nitrogen 5 mg/dL (7-18); Bicarbonate 23 mmol/L (21-32); Glucose Level 122 mg/dL (74-106); Potassium 3.4 mmol/L (3.5-5.1); Sodium Level 140 mmol/L (136-145)
[2020-08-31] MEDS: INSULIN -REGULAR HUMAN 50 UNIT/0.5 ML ML SQ SCH ×3 (07:30→16:30)
[2020-08-31] MEDS: INSULIN GLARGINE 100 UNITS/ML SQ SCH (08:00)
[2020-08-31] MEDS: ENOXAPARIN 40 MG/0.4 ML SQ SCH (09:00)
[2020-08-31] MEDS ORDERED: POTASSIUM CL SA 10 MEQ TAB PO ONE (09:27)
--- NOTE | 2020-08-31 09:39 | P.PN ---
Subjective Date of Service: 08/31/20 Chief Complaint: Emphysematous cystitis Patient seen examined at bedside, no episodes of nausea or vomiting at today. Patient states that she has not had a bowel movement since Friday. Review of Systems 10-point ROS is otherwise unremarkable Physical Examination - Vital Signs Temperature: 97.9 F Blood Pressure: 150/73 Pulse: 85 Respirations: 18 Pulse Ox (%): 98 - Studies Temp Pulse Resp BP Pulse Ox 97.9 F 85 18 150/73 H 98 08/31/20 08:00 08/31/20 08:00 08/31/20 08:00 08/31/20 08:00 08/31/20 08:00 Laboratory Last Values WBC 6.30 K/uL (4.3-10.9) 08/26/20 19:16 RBC 3.69 M/uL (3.86-4.86) L 08/26/20 19:16 Hgb 10.6 g/dL (12.0-15.0) L 08/26/20 19:16 Hct 30.9 % (36.0-45.0) L 08/26/20 19:16 MCV 83.6 fL (80-100) 08/26/20 19:16 MCH 28.6 pg (27.0-35.0) 08/26/20 19:16 MCHC 34.2 g/dL (32.0-36.0) 08/26/20 19:16 RDW 16.5 % (12.1-15.2) H 08/26/20 19:16 Plt Count 386 K/uL (152-406) 08/26/20 19:16 MPV 7.2 fL (7.6-11.3) L 08/26/20 19:16 Neutrophils % 59.7 % (41.7-73.7) 08/26/20 19:16 Lymphocytes % 31.2 % (15.3-44.8) 08/26/20 19:16 Monocytes % 6.8 % (3.3-12.3) 08/26/20 19:16 Eosinophils % 1.7 % (0-4.4) 08/26/20 19:16 Basophils % 0.6 % (0-1.3) 08/26/20 19:16 Absolute Neutrophils 3.8 K/uL (1.8-8.0) 08/26/20 19:16 Absolute Lymphocytes 2.0 K/uL (0.7-4.9) 08/26/20 19:16 Absolute Monocytes 0.4 K/uL (0.1-1.3) 08/26/20 19:16 Absolute Eosinophils 0.1 K/uL (0-0.5) 08/26/20 19:16 Absolute Basophils 0.0 K/uL (0-0.5) 08/26/20 19:16 Sodium 138 mmol/L (136-145) 08/26/20 19:16 Potassium 4.2 mmol/L (3.5-5.1) 08/26/20 19:16 Chloride 106 mmol/L (98-107) 08/26/20 19:16 Carbon Dioxide 27 mmol/L (21-32) 08/26/20 19:16 BUN 38 mg/dL (7-18) H 08/26/20 19:16 Creatinine 1.05 mg/dL (0.55-1.3) 08/26/20 19:16 Estimated GFR 55 mL/min (=/>90) L 08/26/20 19:16 Glucose 209 mg/dL (74-106) H 08/26/20 19:16 Lactic Acid 1.1 mmol/L (0.4-2.0) 08/26/20 19:16 Calcium 9.1 mg/dL (8.5-10.1) 08/26/20 19:16 Magnesium 2.2 mg/dL (1.8-2.4) 08/26/20 19:16 Total Bilirubin 0.4 mg/dL (0.2-1.0) 08/26/20 19:16 Direct Bilirubin < 0.1 mg/dL (0-0.2) 08/26/20 19:16 AST 29 U/L (15-37) 08/26/20 19:16 ALT 37 U/L (12-78) 08/26/20 19:16 Alkaline Phosphatase 121 U/L (45-117) H 08/26/20 19:16 Rapid Troponin I < 0.02 ng/mL (0.0-0.045) 08/26/20 19:16 Serum Total Protein 7.9 g/dL (6.4-8.2) 08/26/20 19:16 Albumin 3.9 g/dL (3.4-5.0) 08/26/20 19:16 Globulin 4.0 g/dL (2.3-3.5) H 08/26/20 19:16 Albumin/Globulin Ratio 1.0 (1.1-1.8) L 08/26/20 19:16 Lipase 204 U/L (73-393) 08/26/20 19:16 Urine pH 5.0 (5.0-7.0) 08/26/20 22:00 Ur Specific [place] 1.025 (1.005-1.030) 08/26/20 22:00 Glucose (UA)(Auto) 1+ (Negative) H 08/26/20 22:00 Urine Ketones Negative (Negative) 08/26/20 22:00 Urine Blood Trace-intact (Negative) H 08/26/20 22:00 Urine Nitrite Positive (Negative) H 08/26/20 22:00 Ur Leukocyte Esterase Trace (Negative) H 08/26/20 22:00 Urine Total Protein 1+ (Negative) H 08/26/20 22:00 SARS-CoV-2 RNA (RT-PCR) Negative (NEGATIVE) 08/26/20 22:15 Assessment And Plan - Plan General: Alert, In no apparent distress HEENT: Atraumatic, Normocephalic Neck: Supple, 2+ carotid pulse no bruit Respiratory: Clear to auscultation bilaterally, Normal air movement Cardiovascular: No edema, Normal pulses Capillary refill: <2 Seconds Gastrointestinal: Hyperactive, Tenderness (To left lower quadrant) Musculoskeletal: No clubbing, No swelling Integumentary: No rashes, No breakdown Urinary: Wang catheter Conclusions/Impression: Antibiotics: cuurent: levaquin start: 08/29 stop: 09/10 DC: Zosyn Start: 08/27 stop:08/30 Assessment: 1. emphysematous cystitis 2. Diabetes mellitus type 2 3. Neuropathy 5. Anemia Plan: 1. CT abdomen and pelvis showed : "Emphysematous cystitis as well as a 4 centimeter area of narrowing involves the transverse colon. This may represent neoplasm." Possible carcinoma of the colon could be a cause for the gas production. Uncontrolled sugars could also be source. Recommend a 2 week antibiotic duration of IV Zosyn with CT imaging performed after completion of antibiotics to see if infection eradicated. Zosyn has been discontinued as it was causing patient's abdominal cramps, Levaquin started. Urine culture results grew Klebsiella. Blood cultures negative. Stool cultures pending. Patient started on probiotic and a Wang catheter has been placed. Continue to monitor closely and monitor for signs of sepsis. 2. Maintain strict glucose control. Patient started on sliding scale insulin -Medical management per primary team -continue monitor CBC and BMP -continue to monitor for signs of infection
[2020-08-31] MEDS: LACTOBACILLUS/ACIDOPHILUS TAB PO SCH (09:49)
[2020-08-31] MEDS: GLUCERNA SHAKE 237 ML CAN PO SCH (09:51)
[2020-08-31] MEDS: ONDANSETRON 4 MG/2 ML VIAL IV PRN (12:58)
--- NOTE | 2020-08-31 13:51 | P.DS ---
Admission Date: 08/26/20 Discharge Date: 08/31/20 Disposition: ROUTINE DISCHARGE Discharge Condition: FAIR Reason for Admission: Emphysematous cystitis Consultations: Infectious disease-Dr. Flores. - Problems (1) Emphysematous cystitis Current Visit: Yes Status: Acute (2) Diabetes mellitus Onset Date: 03/26/18 Current Visit: No Status: Acute Qualifiers: Diabetes mellitus type: type 1 Diabetes mellitus complication status: with unspecified complications Brief History of Present Illness: 54-year-old woman with a history of diabetes mellitus type 2, neuropathy presented to the emergency department due to left-sided abdominal pain and diarrhea. UA done in the emergency department positive for UTI. CT abdomen and pelvis demonstrated emphysematous cystitis coma for sentiment area of narrowing involving the transverse colon which may represent a neoplasm. Direct visualization recommended. Patient also noted to have prominence of the biliary tree. Patient is status post cholecystectomy. Patient reports pneumaturia fracture admission. She was admitted for further management. Hospital Course: Patient admitted to the medical floor and started on IV Zosyn. Patient also treated with supportive measures including IV fluid. Urine culture grew Klebsiella. Patient seen infectious disease who recommended 2 weeks of IV Levaquin based on the sensitivity pattern. Patient has anemia which was stable during the hospital stay. CT abdomen and pelvis done in the ED also reported narrowing in the transverse colon, malignancy not ruled out. This was discussed with the patient and informed her she will need a colonoscopy within the next few weeks once the infection has been adequately treated. She will follow with her PCP for arrangement for the colonoscopy. Patient has clinically improved with treatment. Seen by PT and... She is discharged with outpatient IV Levaquin. She will need her urine culture repeated after antibiotic therapy to document clearance. Dr. Flores will follow her during the course of the outpatient IV antibiotic. Vital Signs/Physical Exam: Temp Pulse Resp BP Pulse Ox 97.9 F 85 18 150/73 H 98 08/31/20 09:39 08/31/20 09:39 08/31/20 09:39 08/31/20 09:39 08/31/20 09:39 General: Alert, In no apparent distress HEENT: Mucous membr. moist/pink Neck: JVD not distended Respiratory: Clear to auscultation bilaterally, Normal air movement Cardiovascular: No edema, Regular rate/rhythm, Normal S1 S2 Gastrointestinal: Normal bowel sounds, Soft and benign, Non-distended, No tenderness Musculoskeletal: No swelling, No tenderness Integumentary: No rashes Neurological: Normal strength at 5/5 x4 extr Laboratory Data at Discharge: WBC 5.60 K/uL (4.3-10.9) 08/31/20 05:55 Hgb 8.5 g/dL (12.0-15.0) L 08/31/20 05:55 Hct 24.6 % (36.0-45.0) L 08/31/20 05:55 Plt Count 319 K/uL (152-406) 08/31/20 05:55 Sodium 140 mmol/L (136-145) 08/31/20 05:55 Potassium 3.4 mmol/L (3.5-5.1) L 08/31/20 05:55 BUN 5 mg/dL (7-18) L 08/31/20 05:55 Creatinine 0.41 mg/dL (0.55-1.3) L 08/31/20 05:55 Glucose 122 mg/dL (74-106) H 08/31/20 05:55 Magnesium 1.9 mg/dL (1.8-2.4) 08/30/20 03:27 Total Bilirubin 0.5 mg/dL (0.2-1.0) 08/29/20 05:20 AST 9 U/L (15-37) L 08/29/20 05:20 ALT 15 U/L (12-78) 08/29/20 05:20 Alkaline Phosphatase 78 U/L (45-117) 08/29/20 05:20 Triglycerides 211 mg/dL (<150) H 08/27/20 05:22 Cholesterol 176 mg/dL (<200) 08/27/20 05:22 HDL Cholesterol 44 mg/dL (40-60) 08/27/20 05:22 Cholesterol/HDL Ratio 4.00 08/27/20 05:22 Lipase 204 U/L (73-393) 08/26/20 19:16 Home Medications: Gabapentin 300 mg PO BID 05/23/20 Insulin Detemir [Levemir Flextouch] 10 unit SQ DAILY 05/23/20 Semaglutide [Ozempic] 0.25 mg SQ Q7D 08/27/20 Famotidine [Pepcid*] 20 mg PO BID PRN #60 tab 08/31/20 Glucerna Shake [Glucerna*] 237 ml PO BID #60 can 08/31/20 Lactobacillus Acidophilus [Acidophilus] 1 each PO TID #90 capsule 08/31/20 New Medications: Lactobacillus Acidophilus [Acidophilus] 1 each PO TID #90 capsule Glucerna Shake [Glucerna*] 237 ml PO BID #60 can Famotidine [Pepcid*] 20 mg PO BID PRN #60 tab PRN Reason: acid reflux Diet: ADA Activity: Ad paige Followup: MARK FLORES [Primary Care Provider] - 1 Week Time spent managing pt's care (in minutes): 36
[2020-08-31] MEDS: Levofloxacin500mg IV 500 MG/100 ML BAG IV SCH (14:33)
[2020-08-31 18:33] VITALS: BP 130/70; TEMP 98.5
== END 2020-08-31 18:28 | disposition home or self-care (01) | DRG 690 ==
LOC: ER 18:26 → ERHOLD 22:19 → 2ND 08-27 00:23
PROVIDERS: ADMIT Hospitalist; ATTEND Internal Medicine
PROC: 02HV33Z Insertion of Infusion Device into Superior Vena Cava, Percutaneous Approach (ICD-10-PCS; principal; 2020-08-30)
DX: N30.80 Other cystitis without hematuria (principal); E11.40 Type 2 diabetes mellitus with diabetic neuropathy, unspecified; D64.9 Anemia, unspecified; B96.1 Klebsiella pneumoniae [K. pneumoniae] as the cause of diseases classified elsewhere; R19.7 Diarrhea, unspecified; Z90.710 Acquired absence of both cervix and uterus; Z88.5 Allergy status to narcotic agent; Z88.8 Allergy status to other drugs, medicaments and biological substances; Z79.4 Long term (current) use of insulin; Z90.49 Acquired absence of other specified parts of digestive tract; Z79.899 Other long term (current) drug therapy; Z79.52 Long term (current) use of systemic steroids; Z20.822 Contact with and (suspected) exposure to COVID-19
CPT/HCPCS: 36415; 36569; 51702; 71045; 74177; 80048; 80053; 80061; 80076; 81003; 82947; 83605; 83690; 83735; 84132; 84145; 84439; 84443; 84484; 85025; 86140; 87040; 87077; 87086; 87088; 87186; 93005; 96361; 96365; 96375; 97161; 99285; J0692; J0696; J1650; J1815; J2270; J2405; J2543; J3370; J3475; J3480; J7030; J7050; Q9967; U0003

== ENCOUNTER 2020-09-03 17:33 | Emergency (ER) | payer SELFPAY ==
--- OUTSIDE RECORDS SUMMARY | 2020-09-03 17:42 | XMS REPORT | Continuity of Care Document ---
:[address] [facility] t Address [address] [place] [address] Care Team Providers Name Role Phone Sharpless [...] 2017-02-03 Memoria 9-15 10:25:00 l HURT 00:00: [place] TOES 00 Active 12/27/2016 [facility] Jona ABDOMINAL Diagnosis Active 2011-042012-02-17 Memoria PAIN 0-26 10:42:00 l 00:00: [place] ABDOMINAL 00 PAIN Active 02/07/2012 [facility] EGD Diagnosis Active 2011-042012-02-06 Mem oria 0-24 10:10:00 l EGD 06:00: [place] 00 Active 02/05/2012 [facility] BLOOD Diagnosis Active 2011-12-11 Mem oria SUGAR 8-16 11:15:00 l PROBLEM BLOOD 15:00: [place] SUGAR 00 PROBLEM Active 11/28/2011 [place] LEFT LOWER Diagnosis Active 2011-12-11 Memoria ABDOMINAL 7-12 10:48:00 l PAIN LEFT 08:00: [place] LOWER 00 ABDOMINAL PAIN Active 10/24/2011 [place] ABDOMINAL Diagnosis Active 2011-12-11 Memoria PAIN HIGH 2-08 11:09:00 l BLOOD 22:00: [place] SUGAR ABDOMINAL 00 PAIN HIGH BLOOD SUGAR Active 05/22/2011 [place] BLEEDING/ Diagnosis Active 2011-12-11 Memoria RT SIDE 1-24 11:06:00 l PAIN 08:00: [place] BLEEDING/ 00 RT SIDE PAIN Active 05/07/2011 [place] RIGHTABDOM Diagnosis Active 2011-04-19 Memoria INAL PAIN 1-06 20:37:00 l . AND 00:00: Jona BLOOD IN RIGHTABDOM 00 URINE INAL PAIN . AND BLOOD IN URINE Active 04/19/2011 [place] RIGHT Diagnosis Active 2011-12-20 Mem oria ABDOMINAL 1-06 13:03:00 l PAIN, RIGHT 00:00: [place] BLOOD IN ABDOMINAL 00 URINE PAIN, BLOOD IN URINE Active 04/19/2011 [place] LOWER ABD Diagnosis Active 2010-042011-12-11 Memoria PAIN/ HIGH 2-12 11:02:00 l SUGAR LOWER 00:00: [place] ABD PAIN/ 00 HIGH SUGAR Active 03/25/2011 [place] CHEST PAIN Diagnosis Active 2010-042011-02-11 Memoria AND 0-30 01:56:00 l TIGHTNESS CHEST 18:00: Jorge Luis n PAIN AND 00 TIGHTNESS Active 02/10/2011 [place] CHEST Diagnosis Active 2010-042011-02-15 Mem oria PAIN, 0-30 21:58:00 l DIZZINESS, CHEST 18:00: Eugenia nn HYPERGLYCE PAIN, 00 EB, UTI DIZZINESS, HYPERGLYCE EB, UTI Active 02/10/2011 [place] CHEST PAIN Diagnosis Active 2010-042011-01-15 Memoria 0-03 16:36:00 l CHEST 15:00: [place]ona PAIN 00 Active 01/14/2011 [place] RIGHT KNEE Diagnosis Active 2010-12-22 Memoria 1ST 3 TOES 9-10 13:04:00 l NUMB RIGHT 11:00: [place] KNEE 1ST 3 00 TOES NUMB Active 12/22/2010 [place] FACIAL Diagnosis Active 2010-12-22 Mem oria NECK 10-08 13:04:00 l CELLULITIS FACIAL 00:00: Herm ava NECK 00 CELLULITIS Active 10/08/2010 [place] FACIAL AND Diagnosis Active 2010-12-22 Memoria NECK PAIN 10-07 13:04:00 l FACIAL 06:00: [place] AND NECK 00 PAIN Active 10/07/2010 [place] SUGAR Diagnosis Active 2010-12-22 Mem oria HIGH,VAGIN 07-21 13:04:00 l AL SUGAR 00:00: [place]ona BLEEDING HIGH,VAGIN 00 AL BLEEDING Active 07/21/2010 [place] ABD PAIN Diagnosis Active 2010-12-22 M emoria 01-05 13:04:00 l ABD PAIN 00:00: Jorge Luis n 00 Active 01/05/2010 [facility] EAR PAIN Diagnosis Active 2010-12-22 M emoria 10-09 13:04:00 l EAR PAIN 19:00: Jorge Luis n 00 Active 10/09/2009 [place] UPPER Diagnosis Active 2010-12-22 Mem oria ABDOMINAL 09-20 13:04:00 l PAIN UPPER 14:00: [place] ABDOMINAL 00 PAIN Active 09/20/2009 [place] ABD PAIN, Diagnosis Active 2010-12-[facility] HIGH SUGAR 5-04 13:04:00 l ABD 00:00: [place] PAIN, HIGH 00 SUGAR Active 08/15/2009 [place] Abdominal Problem Active 2012-02-19 Me moria pain 09:23:16 l J[place] Abdominal pain Active Problem 02/19/2012 [facility], [place] Cellulitis Problem Active 2012-02-19 M emoria 09:23:16 l [place] Cellulitis Active Problem 02/19/2012 [facility] [place] Chest pain Problem Active 2012-02-19 M emoria 09:23:16 l Chest Jona pain Active Problem 02/19/2012 [facility] [place] Hyperglyce Problem Active 2012-02-19 M emoria eb 09:23:16 l [place] Hyperglyce eb Active Problem 02/19/2012 [facility] [place] [place] UTI - Problem Active 2012-02-19 Memor ia Urinary 09:23:16 l tract UTI - [place] infection Urinary tract infection Active Problem 02/19/2012 [facility] [place] Diabetes Problem Active 2017-03-01 Mem oria mellitus 04:36:24 l (disorder) Diabetes He rmann mellitus (disorder) Active Problem 03/01/2017 [facility] Restless Problem Active 2017-03-01 Mem oria legs 04:36:24 l (disorder) Restless He rmann legs (disorder) Active Problem 03/01/2017 [facility] Abdominal Problem Active 2017-03-01 Me moria pain 04:36:24 l (finding) [place] Abdominal pain (finding) Active Problem 03/01/2017 [facility] Chest pain Problem Active 2017-03-01 M emoria (finding) 04:36:24 l Chest Jona pain (finding) Active Problem 03/01/2017 [facility] Hyperglyce Problem Active 2017-03-01 M emoria eb 04:36:24 l (disorder) Jorge Luis n Hyperglyce eb (disorder) Active Problem 03/01/2017 [facility] Urinary Problem Active 2017-03-01 Nirmal feliz tract 04:36:24 l infectious Urinary Her pugh disease tract (disorder) infectious disease (disorder) Active Problem 03/01/2017 [facility] CHEST PAIN Diagnosis Active 2010-12-22 Memoria NOS 13:04:00 l CHEST Jona PAIN NOS Active [place] CELLULITIS Diagnosis Active 2010-12-22 Memoria NOS 13:04:00 l [place] CELLULITIS NOS Active [place] History of Past Illness Condition Condition Condition Status Onset Resolution Last Treating Co mments Source Name Details Category Date Date Treatment Clinician Date Hyperglyce Problem 2016-042017-03-01 2017-03-01 Memoria eb, 1-14 04:36:24 04:36:24 l unspecifie 06:00: Jorge Luis n d Hyperglyce 00 eb, unspecifie d 02/25/2017 03/01/2017 [facility] Fever, Problem 2016-2017-03-01 2017-03-01 M emoria unspecifie - 04:36:24 04:36:24 l d Fever, 06:00: [place] unspecifie 00 d 02/25/2017 03/01/2017 [facility] Radiculopa Problem 2016-2017-02-28 2017-02-28 Memoria thy, 1-14 05:26:25 05:26:25 l cervical 06:00: Jona region Radiculopa 00 thy, cervical region 02/25/2017 02/28/2017 [facility] Displaced Problem 2016-2016-12-30 2016-12-30 Memoria unspecifie 15 05:13:20 05:13:20 l d fracture 05:00: Jorge Luis n of right Displaced 00 lesser unspecifie toe(s), d fracture initial of right encounter lesser for closed toe(s), fracture initial encounter for closed fracture 12/30/2016 [facility] Allergies, Adverse Reactions, Alerts Allergy Allergy Status Severity Reaction(s) Onset Inactive Treating Comm ents Source Name Type Date Date Clinician Hectorph [facility]ensi [facility] - adverse [facility] reaction [facility] Center s Ritalin Ritalin Active Emmanuelle Tenorio Social History Social Habit Start Date Stop Date Quantity Comments Source Sex Assigned At [facility] Tobacco use and 2017-10-06 2017-10-06 Never used [facility] - exposure 00:00:00 00:00:00 [facility] Alcohol intake 2017-10-06 2017-10-06 [facility]:00:00 non-drinker of Medical nter alcohol (finding) Social History 2017-02-03 2017-02-03 [facility] hermila 15:24:44 15:24:44 Smoking Status Start Date Stop Date Source [facility] Medications Ordered Filled Start Stop Current Ordering Indication Dosage Frequency Signature Comments Components Source Medication Medication Date Date Medication? Clinician (SIG) Name Name rOPINIRole Yes 1mg [id number] Take [address] [facility] [address] (REQUIP) 1 3-26 [id number] by mouth 3 [facility] - MG tablet 12:00: 3D (three) Medic al 28 times Center daily. pregabalin Yes 50mg [id number] Take [address] [facility] [address] (LYRICA) 50 3- [id number] by mouth 3 [facility] - MG capsule 12:00: 3D (three) Medi steven 28 times Center daily. GI cocktail 2016-04 No Notes: Nirmal feliz 1-15 G.I. l 05:06: Cocktail = [place] 00 antacid with simethicon e 22.5 mL - lidocaine viscous 7.5 mL Zofran 2016-04 No Notes: Memoria 1-15 (Same as: l 04:41: Zofran) Jona 00 MEDICATION WASTE Product Size: 4 mg Product Wasted: ___ mg Zofran 2016-04 No Notes: Memoria 1-15 (Same as: l 02:34: Zofran) [place] 00 MEDICATION WASTE Product Size: 4 mg [...] Weight 49.545 kg, Start date: 02/25/17 20:22:00 NURSERY HELPER, Stop date: 02/25/17 20:22:00 NURSERY HELPER ibuprofen 2016-04 Yes 800 mg = 1 [...] Ketorolac 2016-04 No 4 days Memor ia - l 05:48: MEDICATION WASTE Product Size: 30 mg Product Wasted: ___ mg Ciprofloxac 2016-04 Yes 500 mg = 1 Memoria in 500 MG 0-15 tab, PO, l Oral Tablet 14:57: Q12H, for H ermann [Cipro] 00 UTI, X 3 day, # 6 tab, 0 Refill(s), [facility]acy: [id number] Humalog 100 2016-04 Yes 4 unit, Mem oria units/mL 0-15 SUB-Q, l 14:48: TID-Before Meals, hold insulin injection if your blood sugar is less than 140 mg/dL., # 10 mL, 0 Refill(s), Pharmacy: [id number] pantoprazol 2016-04 Yes 40 mg = 1 M emoria e 40 MG 0-15 tab, PO, l Enteric 14:48: Daily, # Jorge Luis n Coated 00 30 tab, 0 Tablet Refill(s), [Protonix] Pharmacy: [id number] Calcium 2016-04 Yes 500 mg = 1 Nirmal feliz Carbonate 0-15 tab, PO, l 500 MG 14:48: TID, # 6 [place] Chewable 00 tab, 0 Tablet Refill(s), Pharmacy: [facility] #[id number] Insulin 2016-04 Yes 15 unit, Memori a Glargine 0-15 SUB-Q, l 100 UNT/ML 14:48: Daily, # Her pugh Injectable 00 10 mL, 0 Solution Refill(s), [Lantus] Pharmacy: [facility] #[id number] Calcium 2016-04 No Notes: Memoria Gluconate 0-15 WASTE: F/P l 14:47: - Sink; E [place] - Municipal Trash Bin Calcium 2016-04 No Notes: Memoria Carbonate 0-15 (Same As: l 14:00: Tums) [place] Calcium Carbonate 500 mg = 200 mg [...] Carbonate 0-14 (Same As: l 22:40: Tums) [place] Calcium Carbonate 500 mg = 200 mg elemental calcium Dose = mg calcium carbonate ( mg elemental calcium) Protonix 2016-04 No Notes: Memoria 0-14 Tablet l 22:00: should not Jona 00 be chewed or crushed. (Same as: Protonix) Magnesium 2016-04 No Notes: Memori a Oxide 0-14 (Same as: l 22:00: Mag-Ox Jona 00 400) Magnesium oxide 684ic=212i g elemental magnesium Dose=____m g magnesium oxide [...] Lispro 0-14 units) l 09:50: WASTE: F/P [place] 00 - Black; E - Municipal Trash Bin Stable for 28 days at room temperatur e. Expires in days from ____Date Ceftriaxone 2016-04 No Notes: Nirmal feliz 0-14 (Same As: l 07:00: Rocephin). [place] 00 Use with 100 mL NS and infuse over 30 min MEDICATION WASTE Product Size: 1000 mg Product Wasted: ___ mg Glucagon 2016-04 No 1 mg, Memoria 0-14 Route: IM, l 06:35: Drug form: [place] 00 PDR/INJ, PRN, Dosing Weight 51.449, kg, PRN Blood Glucose Results, Start date: 01/25/17 1:35:00 CDT, Duration: 30 day, Stop date: 02/24/17 0:34:00 NURSERY HELPER Insulin 2016-04 No 60 Memoria Lispro 0-14 [...] Duration: 30 day, Stop date: 02/24/17 0:34:00 NURSERY HELPER Hydralazine 2016-04 No Notes: Nirmal feliz 0-14 (Same as: l 06:35: Apresoline ) Push over 5 minutes Acetaminoph 2016-04 No Notes: Do M emoria en 0-14 not exceed l 06:32: 4 gm/day. Jona 00 (Same as: Tylenol) Acetaminoph 2016-04 No Notes: Nirmal feliz en 325 MG / 0-14 (Same as: l Hydrocodone 06:32: [place] Eugenia nn Bitartrate 00 325/5) Do 5 [...] 01/25/17 1:32:00 CDT, Stop date: 02/24/17 1:31:00 NURSERY HELPER Saline 2016-04 No Notes: Memoria Flush 0.9% [...] Chloride 0-14 3000 l 0.9% 03:15: ml/hr, [place] (Bolus) IV 00 Infuse Over: 1 hr, Route: IV, 3,000, Drug form: INJ, ONCE, Priority: STAT, Dosing Weight 52.273 kg, Start date: 01/24/17 22:15:00 CDT, Duration: 1 doses or times, Stop date: 01/24/17 22:15:00 CDT Sodium 2016-04 No 500 mL, Memoria Chloride 0-14 500 ml/hr, l 0.9% 03:09: Infuse [place] (Bolus) IV 00 Over: 1 hr, Route: IV, 500, Drug form: INJ, ONCE, Priority: STAT, Dosing Weight 52.273 kg, Start date: 01/24/17 22:09:00 CDT, Duration: 1 doses or times, Stop date: 01/24/17 22:09:00 CDT Zofran 2016-04 No 4 mg, Memoria 0-14 Route: l 03:07: IVP, Drug [place] 00 form: INJ, ONCE, Dosing Weight 52.273, [...] / -15 (Same as: l Hydrocodone 04:47: [place] Eugenia nn Bitartrate 00 325/5) Do 5 MG Oral not exceed Tablet 4gm/day of [[place] acetaminop 5/325] hen. insulin Yes QD Inject [facility] glargine 2- subcutaneo [facility] - (LANTUS) 18:24: [facility] 100 unit/mL 46 nightly. Cent er injection Use as directed Sodium No Vimi 500 mL, Memoria Chloride 11-28 Roche Rate: 500 l 0.9% 03:47: ml/hr, [place] (Bolus) IV 00 Infuse 500 mL over: [...] 11-28 Roche Route: l 02:51: IVP, Drug [place] 00 Form: INJ, kg, PRN, PRN Line Flush, Start date: 11/28/11 21:51:00, Duration: 30 day, Stop date: 12/28/11 21:50:00 [place] 5/325 2011-0 Yes Juan 1-2 tab, M emoria oral tablet 7-13 Keith PO, Q4-6H, l 06:12: Yeaton PRN, 15 Jona 25 tab, Pain, Substituti on Allowed, Soft Stop Zofran ODT 2011- Yes Juan 4 mg, 1 Mem oria [...] 2-09 Roche Route: l 07:52: IVP, ONCE, [place] Start date: 05/23/11 1:52:00, Stop date: 05/23/11 [...] 2-09 Roche 0.05 mL, l 05:36: Route: [place] 00 SUB-Q, Drug form: SOLN, ONCE, Priority: STAT, Start date: 05/22/11 23:36:00, Stop date: 05/22/11 23:36:00 morphine 2011-0 No Vimi 2 mg, 0.4 Nirmal feliz Sulfate 2-09 Roche mL, Route: l 05:04: IVP, Drug [place] 00 form: INJ, ONCE, Priority: STAT, Start date: 05/22/11 23:04:00, Stop date: 05/22/11 23:04:00 ondansetron 2011- No Vimi 4 mg, 2 Mem oria 2-09 Roche mL, Route: l 05:04: IVP, Drug [place] 00 form: INJ, ONCE, Priority: STAT, Start date: 05/22/11 23:04:00, Stop date: 05/22/11 23:04:00 Sodium 2011-0 No Vimi 500 mL, Memoria Chloride 209 Roche Rate: l 0.9% 05:04: 1,000 [place] (Bolus) IV 00 ml/hr, 500 mL Infuse over: 0.5 hr, Route: IV, Total Volume: 500, Bolus dose, Priority: STAT, Start date: 05/22/11 23:04:00, Duration: 1 doses or times, Stop date: 05/22/11 23:33:00 Saline 2011- No Vimi 5 ml, Memoria Flush 0.9% 2 Roche Route: l 05:04: IVP, Drug Form: [...] 05/07/11 20:03:00, Stop date: 05/07/11 20:03:00 Cipro 2011- No Sonal 500 mg, 2 Memor ia -25 Raulito tab, l 02:03: Route: PO, [place] 00 Drug form: TAB, ONCE, Priority: STAT, [...] ing Nausea and Vomiting, Substituti on Allowed [place] Yes Juan 1 tab, PO, Memor ia 10/325 oral 04-20 Keith Q4-6H, l tablet 06:55: Yeaton PRN, 24 Jorge Luis n 26 tab, as needed for pain, Substituti on Allowed, Maintenanc e hydromorpho No Juan 1 mg, 0.5 Memoria ne 07 Keith mL, Route: l 05:38: Yeaton IVP, Drug Jorge Luis n 00 form: INJ, ONCE, Priority: STAT, Start date: 04/19/11 23:38:00, Stop date: 04/19/11 23:38:00 Insulin No Juan 10 unit, Memor ia regular 107 Keith 0.1 mL, l 05:31: Yeaton Route: IVP, Drug form: SOLN, ONCE, Priority: STAT, Start date: 04/19/11 23:31:00, Stop date: 04/19/11 23:31:00 Sodium 2011-0 No Juan 1,000 mL, Memor ia Chloride 1-07 Keith Rate: l 0.9% 03:30: Yeaton 1,000 [place] (Bolus) IV 00 ml/hr, 1,000 mL Infuse [...] 2011-0 No Juan 4 mg, Nirmal feliz 04-20 [...] Mila 150 ml, Me moria citrate 2-13 Ewing Phelps PO, ONCE, l 8.85% oral 05:57: 300 ml, Herm ava liquid 30 Substituti on Allowed, Maintenanc e, LIQ MiraLax 2010-04 Yes Mila 17 gm, PO, M emoria oral powder 2-13 Ewing Phelps Daily, 255 l for 05:57: gm, Jona reconstitut 18 Substituti ion on Allowed, PDR/REC Phenergan 2010-04 Yes Mila 25 mg, 1 M emoria 25 mg oral 2-13 Ewing Phelps tab, PO, l tablet 05:57: Q6H, PRN, Jorge Luis n 09 15 tab, Nausea, Substituti on Allowed Vicodin 2010-04 Yes Mila 1 tab, PO, M emoria 5/500 oral 2-13 Zay Phelps Q4-6H, l tablet 05:57: PRN, 24 [place] 05 tab, for Pain, Substituti on Allowed, Maintenanc e Sodium 2010-04 No Mila 1,000 mL, Mem oria Chloride 2-13 Zay Phelps Rate: l 0.9% 03:24: 1,000 [place] (Bolus) IV 00 ml/hr, 1,000 mL Infuse over: 1 hr, Route: IV, Total Volume: 1,000, Bolus Dose, Priority: STAT, Start date: 03/25/11 21:24:00, Duration: 1 doses or times, Stop date: 03/25/11 22:23:00 Insulin 2010-04 No Mila 10 unit, Mem oria regular 2-13 Ewing Phelps 0.1 mL, l 03:16: Route: Jona 00 IVP, Drug form: SOLN, ONCE, Priority: STAT, Start date: 03/25/11 21:16:00, Stop date: 03/25/11 21:16:00 Omnipaque 2010-04 Yes Mila 30,000 mg, Memoria 300 2-13 Ewing Phelps 100 mL, l 03:15: Route: IV, [place] 00 Drug form: SOLN, ONCE, Start date: [...] 03/25/11 20:19:00, Stop date: 03/25/11 20:19:00 morphine 2011-1 No Mila 4 mg, 0.8 M emoria Sulfate 2-13 Ewing Phelps mL, Route: l 02:19: IVP, Drug [...] tab, l 16:00: Bridges Route: PO, Herm Drug form: TAB, [id number], Start date: 02/11/11 11:00:00, Duration: 30 day, [...] Ari 0.7 mL, l 14:00: Jonathan Route: [place] 00 SUB-Q, Drug form: INJ, Daily, Start [...] moria tartrate 0-31 Ari tab, l 14:00: Jonatahn Route: PO, Herm ava 00 Drug form: [...] PO, Herm ava 00 Drug form: TAB, [id number], Start date: 02/11/11 3:00:00, Duration: 30 day, [...] 0.4 mg, 1 Memoria in SL Tab 0 Ari tab, l 07:05: Jonathan Route: SL, [...] No Dk 650 mg, 2 Memoria en 0 Ari tab, l 07:05: Jonathan Route: PO, Herm ava 00 Drug form: TAB, Q4H, PRN Headache, Start date: 02/11/11 2:05:00, Duration: 30 day, Stop date: 03/13/11 2:04:00 diphenhydrA 2010-04 No Dk 25 mg, 1 M emoria MINE 0 Ari tab, l 07:05: Jonathan Route: PO, Herm vaa 00 Drug form: TAB, Bedtime, PRN Insomnia, [...] Shauna mL, Route: l 05:37: IVP, Drug [place] 00 form: INJ, ONCE, Priority: STAT, Start date: 02/11/11 0:37:00, Stop date: 02/11/11 0:37:00 Visipaque 2010-04 No Penelope S 48,000 mg, Memoria 0-31 Shauna 150 mL, l 04:55: Route: IV, [place] 00 Drug form: INJ, ONCE, Start date: 02/10/11 23:55:00, Stop date: 02/10/11 23:55:00 Zofran 2010-04 No Penelope S 4 mg, 2 Memori a 0-31 Shauna mL, Route: l 04:28: IVP, Drug [place] 00 form: INJ, ONCE, Start date: 02/10/11 [...] 0-31 Shauna Rate: l 0.9% 03:55: 1,000 [place] (Bolus) IV 00 ml/hr, 1000 mL Infuse over: 1 hr, Route: IV, Total Volume: 1,000, Bolus Dose, Priority: STAT, Start date: 02/10/11 22:55:00, Duration: 1 doses or times, Stop date: 02/10/11 23:54:00 BD 2010-04 No Penelope S 15 mL, Memoria Posiflush 0-31 Shauna Route: l SF 02:55: IVP, Drug [place] 00 Form: INJ, PRN, PRN Line Flush, [...] Shauna Route: PO, l 02:47: Drug form: [place] 00 TAB, ONCE, (Hold if SBP < [...] 0-31 Shauna Route: l 02:47: IVP, ONCE, [place] 00 Priority: STAT, Start date: 02/10/11 21:47:00, Stop date: 02/10/11 21:47:00 Saline 2010-04 No Penelope S 5 ml, Memoria Flush 0.9% 0-31 Shauna Route: l 02:47: IVP, PRN, [place] 00 PRN Line Flush, Start date: 02/10/11 [...] Victoriano tab, l 02:00: [place] Route: PO, [place] 00 Drug form: TAB, Bedtime, Start date: 01/15/11 21:00:00, Duration: 30 day, Stop date: 02/13/11 21:00:00 Nitrostat 2010-04 Yes Giovani 1 tab, LATOSHA M emoria 0.4 mg 0-04 Xiaoguang Q5Min, [...] tablet 0-04 tab, PO, l 13:58: Bedtime, [place] 11 Substituti on Allowed ibuprofen 2010-04 No [...] Victoriano 0.7 mL, l 02:00: [place] Route: [place] 00 SUB-Q, Drug form: INJ, Bedtime, Start date: 01/14/11 21:00:00, Duration: 30 day, Stop date: 02/12/11 21:00:00 Lantus 2010-04 Beth Duncan 70 unit, Memor ia 0-04 Minhvu Victoriano Route: l 02:00: [place] SUB-Q, [place] 00 Bedtime, Start date: 01/14/11 21:00:00, Duration: [...] ml, Route: l 00:22: [place] IM, Drug [place] 00 Form: INJ, PRN, PRN Blood Glucose [...] Victoriano tab, l 00:21: [place] Route: PO, [place] 00 Drug form: TAB, Q4H, PRN Headache, Start date: 01/14/11 19:21:00, Duration: 30 day, Stop date: 02/13/11 19:20:00 temazepam 2010-04 No Dakota 15 mg, 1 Me moria 0-04 Minhvu Victoriano cap, l 00:21: [place] Route: PO, [place] 00 Drug form: CAP, Bedtime, PRN Insomnia, [...] mL 0-03 Davis Rate: l 22:07: 1,000 [place] 00 ml/hr, Infuse over: 1 hr, Route: IV, Total Volume: 1,000, Priority: STAT, Start date: 01/14/11 17:07:00, Duration: 1 doses or times, Stop date: 01/14/11 18:06:00, Bolus DoseBolus Dose Saline 2010-04 No Moise G 5 ml, Memoria Flush 0.9% 0-03 Davis Route: l 20:20: IVP, Drug [place] 00 Form: INJ, PRN, PRN Line Flush, Start date: 01/14/11 15:20:00, Duration: 30 day, Stop date: 02/13/11 15:19:00 ibuprofen Yes Sonal 1 tab, PO, Memoria 400 mg oral 9-10 Raulito Q4H, PRN, l tablet 18:32: 20 tab, Jona 59 Pain, Substituti on Allowed acetaminoph Yes Sonal 1 tab, PO, Memoria en-hydrocod 9-10 Raulito Q4-6H, l one 500 18:32: PRN, 20 [place] mg-5 mg 50 tab, Pain, oral tablet Substituti on Allowed, Maintenanc e acetaminoph No Sonal 1 tab, Me moria en-hydrocod 10 Raulito Route: PO, l one 500 17:39: Drug Form: Herm ava mg-5 mg 00 TAB, ONCE, oral tablet STAT, Start date: 12/22/10 12:39:00, Stop date: 12/22/10 12:39:00 Vital Signs Vital Name Observation Time Observation Value Comments Source Systolic (mm Hg) 2017-02-26 06:50:00 Nirmal rial Jona Diastolic (mm Hg) 2017-02-26 06:50:00 Mem orial Jona Respitory Rate 2017-02-26 06:50:00 Memori al [place] Temperature Oral (F) 2017-02-26 06:50:00 97.6 F [facility] [place] Heart Rate 2017-02-26 06:50:00 [facility] [place] Respitory Rate 2017-02-26 04:30:00 Memori al [place] Systolic (mm Hg) 2017-02-26 04:30:00 Nirmal rial Jona Diastolic (mm Hg) 2017-02-26 04:30:00 Mem orial [place] Heart Rate 2017-02-26 04:30:00 [facility] [place] Temperature Oral (F) 2017-02-26 00:55:00 98.8 F [facility] [place] Weight 2017-02-26 00:55:00 [facility] [place] BMI Calculated 2017-02-26 00:55:00 Memori al Jona Height 2017-02-26 00:55:00 162.56 cm [facility] [place] Systolic (mm Hg) 2017-02-26 00:55:00 Nirmal rial [place] Diastolic (mm Hg) 2017-02-26 00:55:00 Mem orial [place] Heart Rate 2017-02-26 00:55:00 [facility] [place] Respitory Rate 2017-02-26 00:55:00 Memori al [place] Respitory Rate 2017-02-25 07:35:00 Memori al [place] Systolic (mm Hg) 2017-02-25 07:35:00 Nirmal rial [place] Diastolic (mm Hg) 2017-02-25 07:35:00 Mem orial Jona Temperature Oral (F) 2017-02-25 07:35:00 98.2 F [facility] [place] Heart Rate 2017-02-25 07:35:00 [facility] [place] BMI Calculated 2017-02-25 05:05:00 Memori al [place] Weight 2017-02-25 05:05:00 [facility] [place] Height 2017-02-25 05:05:00 162.56 cm [facility] [place] Heart Rate 2017-02-25 05:05:00 [facility] [place] Respitory Rate 2017-02-25 05:05:00 Memori al [place] Temperature Oral (F) 2017-02-25 05:05:00 97.8 F [facility] [place] Systolic (mm Hg) 2017-02-25 05:05:00 Nirmal rial [place] Diastolic (mm Hg) 2017-02-25 05:05:00 Mem orial Jona Weight 2017-02-25 04:55:00 [facility] [place] Height 2017-02-25 04:55:00 167.64 cm [facility] [place] Temperature Oral (F) 2017-02-25 04:55:00 97.8 F [facility] [place] BMI Calculated 2017-02-25 04:55:00 Memori al [place] Systolic (mm Hg) 2017-02-25 04:55:00 Nirmal rial [place] Diastolic (mm Hg) 2017-02-25 04:55:00 Mem orial [place] Respitory Rate 2017-02-25 04:55:00 Memori al [place]ona Heart Rate 2017-02-25 04:55:00 [facility] [place] Temperature Oral (F) 2017-01-26 16:47:00 98.5 F [facility] [place] Heart Rate 2017-01-26 16:47:00 [facility] [place] Respitory Rate 2017-01-26 16:47:00 Memori al [place] Systolic (mm Hg) 2017-01-26 16:47:00 Nirmal rial [place] Diastolic (mm Hg) 2017-01-26 16:47:00 Mem o[facility] Heart Rate 2017-01-26 12:26:00 [facility] [place] Respitory Rate 2017-01-26 12:26:00 [facility] Temperature Oral (F) 2017-01-26 12:26:00 98.4 F [facility] [place] Systolic (mm Hg) 2017-01-26 12:26:00 [facility] [place] Diastolic (mm Hg) 2017-01-26 12:26:00 [facility] [place] Temperature Oral (F) 2017-01-26 09:50:00 98.1 F [facility] Heart Rate 2017-01-26 09:50:00 [facility] [place] Systolic (mm Hg) 2017-01-26 09:50:00 [facility] Diastolic (mm Hg) 2017-01-26 09:50:00 [facility] [place] Respitory Rate 2017-01-26 09:50:00 [facility] Height 2017-01-25 05:58:00 157.48 cm [facility] Weight 2017-01-25 05:58:00 [facility] BMI Calculated 2017-01-25 05:58:00 [facility] Weight 2017-01-25 02:01:00 [facility] BMI Calculated 2017-01-25 02:01:00 [facility] Height 2017-01-25 02:01:00 162.56 cm [facility] Systolic (mm Hg) 2016-12-27 06:03:00 [facility] [place] Diastolic (mm Hg) 2016-12-27 06:03:00 [facility] Respitory Rate 2016-12-27 06:03:00 [facility] Heart Rate 2016-12-27 06:03:00 [facility] Temperature Oral (F) 2016-12-27 06:03:00 98.3 F [facility] Temperature Oral (F) 2016-12-27 04:22:00 98.4 F [facility] Respitory Rate 2016-12-27 04:22:00 [facility] Systolic (mm Hg) 2016-12-27 04:22:00 [facility] Diastolic (mm Hg) 2016-12-27 04:22:00 [facility] BMI Calculated 2016-12-27 04:22:00 [facility] Weight 2016-12-27 04:22:00 [facility] Heart Rate 2016-12-27 04:22:00 [facility] Height 2016-12-27 04:22:00 162.56 cm [facility] Height 2012-02-06 15:19:00 162.56 cm [facility] Weight 2012-02-06 15:19:00 [facility] Height 2011-11-29 02:35:00 162.56 cm [facility] Weight 2011-11-29 02:35:00 [facility] Height 2011-10-25 02:45:00 162.56 cm [facility] Weight 2011-10-25 02:45:00 [facility] Height 2011-05-23 04:48:00 162.56 cm [facility] Weight 2011-05-23 04:48:00 [facility] Temperature Oral (F) 2011-05-08 02:38:00 98.5 F [facility] Diastolic (mm Hg) 2011-05-08 02:38:00 [facility] Systolic (mm Hg) 2011-05-08 02:38:00 [facility] Heart Rate 2011-05-08 02:38:00 [facility] Respitory Rate 2011-05-08 02:38:00 [facility] Weight 2011-05-08 00:09:00 [facility] Height 2011-05-08 00:09:00 162.56 cm [facility] Temperature Oral (F) 2011-05-08 00:09:00 98.6 F [facility] Diastolic (mm Hg) 2011-05-08 00:09:00 [facility] Systolic (mm Hg) 2011-05-08 00:09:00 [facility] Heart Rate 2011-05-08 00:09:00 [facility] Respitory Rate 2011-05-08 00:09:00 [facility] Respitory Rate 2011-04-20 07:05:00 [facility] Heart Rate 2011-04-20 07:05:00 [facility] Diastolic (mm Hg) 2011-04-20 07:05:00 [facility] Systolic (mm Hg) 2011-04-20 07:05:00 [facility] Diastolic (mm Hg) 2011-04-20 06:01:00 [facility] Heart Rate 2011-04-20 06:01:00 [facility] Systolic (mm Hg) 2011-04-20 06:01:00 [facility] Respitory Rate 2011-04-20 06:01:00 [facility] Weight 2011-04-20 02:25:00 [facility] Systolic (mm Hg) 2011-04-20 02:25:00 [facility] Temperature Oral (F) 2011-04-20 02:25:00 98.0 F [facility] Respitory Rate 2011-04-20 02:25:00 [facility] Heart Rate 2011-04-20 02:25:00 [facility] Diastolic (mm Hg) 2011-04-20 02:25:00 [facility] Temperature Oral (F) 2011-03-26 06:05:00 98.0 F [facility] Respitory Rate 2011-03-26 06:05:00 [facility] Heart Rate 2011-03-26 06:05:00 [facility] Systolic (mm Hg) 2011-03-26 06:05:00 [facility] Diastolic (mm Hg) 2011-03-26 06:05:00 [facility] Height 2011-03-26 01:58:00 160.02 cm [facility] Weight 2011-03-26 01:58:00 [facility] Temperature Oral (F) 2011-03-26 01:58:00 99.0 F [facility] Diastolic (mm Hg) 2011-03-26 01:58:00 [facility] Systolic (mm Hg) 2011-03-26 01:58:00 [facility] Respitory Rate 2011-03-26 01:58:00 [facility] Heart Rate 2011-03-26 01:58:00 [facility] Diastolic (mm Hg) 2011-02-11 15:37:00 [facility] Respitory Rate 2011-02-11 15:37:00 [facility] Systolic (mm Hg) 2011-02-11 15:37:00 [facility] Heart Rate 2011-02-11 15:37:00 [facility] Temperature Oral (F) 2011-02-11 15:37:00 98.1 F [facility] Diastolic (mm Hg) 2011-02-11 11:53:00 [facility] Systolic (mm Hg) 2011-02-11 11:53:00 [facility] Temperature Oral (F) 2011-02-11 11:53:00 97.5 F [facility] Heart Rate 2011-02-11 11:53:00 [facility] Respitory Rate 2011-02-11 11:53:00 [facility] Height 2011-02-11 07:38:00 162.56 cm [facility] Weight 2011-02-11 07:38:00 [facility] Respitory Rate 2011-02-11 07:38:00 [facility] Temperature Oral (F) 2011-02-11 07:38:00 98.0 F [facility] Heart Rate 2011-02-11 07:38:00 [facility] Systolic (mm Hg) 2011-02-11 07:38:00 [facility] Diastolic (mm Hg) 2011-02-11 07:38:00 [facility] Weight 2011-02-11 02:32:00 [facility] Height 2011-02-11 02:32:00 162.56 cm [facility] Diastolic (mm Hg) 2011-01-15 16:44:00 [facility] Systolic (mm Hg) 2011-01-15 16:44:00 [facility] Temperature Oral (F) 2011-01-15 16:44:00 97.0 F [facility] Heart Rate 2011-01-15 16:44:00 [facility] Respitory Rate 2011-01-15 16:44:00 [facility] Temperature Oral (F) 2011-01-15 12:18:00 97.2 F [facility] Respitory Rate 2011-01-15 12:18:00 [facility] Heart Rate 2011-01-15 12:18:00 [facility] Diastolic (mm Hg) 2011-01-15 12:18:00 [facility] Systolic (mm Hg) 2011-01-15 12:18:00 [facility] Respitory Rate 2011-01-15 09:30:00 [facility] Systolic (mm Hg) 2011-01-15 09:30:00 [facility] Heart Rate 2011-01-15 09:30:00 [facility] Temperature Oral (F) 2011-01-15 09:30:00 97.9 F [facility] Diastolic (mm Hg) 2011-01-15 09:30:00 [facility] Height 2011-01-15 01:35:00 162.56 cm [facility] Weight 2011-01-15 01:35:00 [facility] Height 2011-01-14 20:07:00 162.56 cm [facility] Weight 2011-01-14 20:07:00 [facility] Systolic (mm Hg) 2010-12-22 18:51:00 [facility] Diastolic (mm Hg) 2010-12-22 18:51:00 [facility] Peripheral Pulse Rate 2010-12-22 18:51:00 [facility] Respitory Rate 2010-12-22 18:51:00 [facility] Height 2010-12-22 16:57:00 162.56 cm [facility] Weight 2010-12-22 16:57:00 [facility] Temperature Oral (F) 2010-12-22 16:57:00 98.2 F [facility] Respitory Rate 2010-12-22 16:57:00 [facility] Peripheral Pulse Rate 2010-12-22 16:57:00 [facility] Diastolic (mm Hg) 2010-12-22 16:57:00 [facility] Systolic (mm Hg) 2010-12-22 16:57:00 [facility] Procedures Procedure Date / Time Performed Performing Clinician Maegan e Appendectomy [facility] Cholecystectomy [facility] Partial hysterectomy [facility] Plan of Care Planned Activity Planned Date Details Comments Source Future Scheduled 2019-12-[address] [facility] - Test 00:00:00 (#1) [code = [facility] INFLUENZA VACCINE (#1)] Future Scheduled [address] [facility] Test 00:00:00 (procedure) [code = [facility] 43547396] Future Scheduled [address] [facility] 00:00:00 malignant neoplasm [facility] enter of cervix (procedure) [code = 622621823] Future Scheduled [address] [facility] - Test 00:00:00 malignant neoplasm [facility] enter of breast (procedure) [code = 153780705] Future Scheduled [address] [facility] - Test 00:00:00 malignant neoplasm Medical C enter of colon (procedure) [code = 131977782] Encounters Start End Encounter Admission Attending Care Care Encounter Source Date/Time Date/Time Type Type Clinicians Facility Department ID 2018-11-26 2018-11-26 [id number] 11:32:46 15:11:00 Edgard Medley [id number] [place] [id number] [place] [id number] 2018-11-26 2018-11-26 Orders Doctor RASHID [id number] 00:00:00 00:00:00 Only Unassigned, [place] [id number] [facility] [id number] [id number] 2017-02-25 2017-02-26 Outpatient Quezada, 2.16.840. 2.16.840.1. 4 [id number] 18:38:00 00:55:00 Rudolph [id number] 03 Mateo 3.615.120 5.120 2017-02-24 2017-02-25 Outpatient Quezada, 2.16.840. 2.16.840.1. 4 [id number] 22:49:00 01:35:00 Rudolph [id number] 02 Mateo 3.615.120 5.120 2017-01-24 2017-01-26 Outpatient Kayla, 2.16.840. 2.16.840.1 . [id number] 20:53:00 14:35:00 Greg Giron [id number] 01 3.615.120 5.120 2016-12-26 2016-12-27 Outpatient Davis, 2.16.840. 2.16.840.1. 4 [id number] 23:03:00 01:05:00 Moise Rojas [id number] 00 3.615.120 5.120 Results Test Description Test Time Test Comments Results Result Comments Source POCT-GLUCOSE METER 2017-10-07 11:53:00 Test Item Value Reference Range Interpretation Comme nts POC-GLUCOSE METER (BEAKER) (test 277 mg/dL 70-110 H TESTED AT [address] POINT code = 1538) [address] [facility] [address] POCT-GLUCOSE [id number] 11:53:00 Test Item Value Reference Range Interpretation Comments POC-GLUCOSE METER 411 mg/dL 70-110 HH TESTED AT [address] ([facility]) (test code POINT [address] [facility] [place] = 1538) [address] RAD, SPINE, CERVICAL, 2 OR 3 [id number] 23:46:00Reason for exam:->neck painFINAL REPORT RAD, SPINE, [...] Grayson Verified Date/Time: 10/06/2017 23:46:30 Reading Location: [address] Transitional Reading Room CT, SPINE, CERVICAL, [...] MDReport Verified Date/Time: 10/06/2017 23:44:40 Reading Location: [address] Transitional Reading Room CT, BRAIN, [...] MDReport Verified Date/Time: 10/06/2017 23:24:44 Reading Location: [address] Reading Room TROPONIN I 2017-10-06 22:56:00 [...] acute neurological disease, and persistent tachyarrhythmia.COMPREHENSIVE METABOLIC [id number] 22:50:00 Test Item Value Reference Range Interpretation [...] S NOT APPLICABLE FOR DIALYSIS PATIEN TS. [id number] 22:42:00 Test Item Value Reference Range Interpretation Comments AMYLASE (BEAKER) (test code = 349) 58 U/L 30-110 CBC W/PLT COUNT & AUTO [id number] 22:22:00 Test Item Value Reference Range Interpretation [...] 0.00-0.20 (test code = 417) URINALYSIS W/ [id number] 22:09:00 Test Item Value Reference Range Interpretation [...] 1663) SOURCE(BEAKER) (test code = 2795) POCT-GLUCOSE [id number] 07:19:00 Test Item Value Reference Range Interpretation Comments POC-GLUCOSE METER 241 mg/dL 70-110 H TESTED AT [address]) (test code POINT PK [facility] = 1538) [address] CT, [id number] 19:16:00FINAL REPORT CT OF THE ABDOMEN AND [...] MDReport Verified Date/Time: 09/22/2017 19:16:29 Reading Location: [address] Consult Reading Room BASIC METABOLIC [id number] 17:37:00 Test Item Value Reference Range Interpretation [...] NOT APPLICABLE FOR DIALYSIS PATIEN TS. TROPONIN [id number] 17:07:00 Test Item Value Reference Range Interpretation [...] (test code = 749) 26 U/L 6-51 [id number] 16:51:00 Test Item Value Reference Range Interpretation Comments AMYLASE (BEAKER) (test 32 U/L 30-110 Speci men markedly code = 349) hemolyzed URINALYSIS W/ [id number] 16:21:00 Test Item Value Reference Range Interpretation [...] = 2795) CBC W/PLT COUNT & AUTO [id number] 16:15:00 Test Item Value Reference Range Interpretation [...] L 0.00-0.20 (test code = 417) POCT-GLUCOSE [id number] 15:36:00 Test Item Value Reference Range Interpretation Comments POC-GLUCOSE METER 284 mg/dL 70-110 H TESTED AT [address] ([facility]) (test code POINT [facility] [place] = 1538) [address] CT, [id number] 15:32:00Reason for exam:->LLQ ABD PAINIs the patient [...] MDReport Verified Date/Time: 07/07/2017 15:32:20 Reading Location: [facility] C013Y CT Body Reading Room LIPASE 2017-07-07 14:41:00 Test Item Value Reference Range Interpretation Comments LIPASE (BEAKER) (test code = 749) 32 U/L 6-51 COMPREHENSIVE METABOLIC [id number] 14:40:00 Test Item Value Reference Range Interpretation [...] NOT APPLICABLE FOR DIALYSIS PATIEN TS. POCT-GLUCOSE [id number] 14:10:00 Test Item Value Reference Range Interpretation Comments POC-GLUCOSE METER 352 mg/dL 70-110 H TESTED AT [address] (BEAKER) (test code [address]INT [address] [facility] [place] = 1538) [address] CBC W/PLT COUNT & AUTO [id number] 13:30:00 Test Item Value Reference Range Interpretation [...] 0.00-0.20 (test code = 417) URINALYSIS W/ [id number] 13:01:00 Test Item Value Reference Range Interpretation [...] 1663) SOURCE(BEAKER) (test code = 2795) KETONE, [id number] 12:58:00 Test Item Value Reference Range Interpretation Comments KETONES, BLOOD (BEAKER) (test code 0.1 mmol/L <0.4 = 1103) BLOOD GAS, [id number] 12:48:00 Test Item Value Reference Range Interpretation [...] (test code = 1819) 37.0 % POCT-GLUCOSE [id number] 12:04:00 Test Item Value Reference Range Interpretation Comments POC-GLUCOSE METER > mg/dL 70-110 HH OUTSIDE ME ASURING (BEAKER) (test code [facility] [address] = 1538) [place] [address] BACTERIAL - [id number] 03:02:00Negative (02/25/17 9:02 PM)[facility] [id number] 03:02:00 Test Item Value Reference Range Interpretation Comments Tube Num CSF (test code = Tube Num CSF) 1 1 [facility] [id number] 03:02:00Clear (02/25/17 9:02 PM)[facility] [id number] 03:02:00Colorless (02/25/17 9:02 PM)[facility] [id number] 03:02:00Colorless (02/25/17 9:02 PM)[facility] [id number] 03:02:002[facility] DSZGFW3855-37-05 03:02:001[facility] HDMNKR6268-98-54 03:02:001[facility] [id number] 03:02:002[facility] SSBBRN1027-92-44 03:02:00 Colorless (02/25/17 9:02 PM)[facility] [id number] 03:02:00Clear (02/25/17 9:02 PM)[facility] [id number] 03:02:00 Test Item Value Reference Range Interpretation Comments Tube Num CSF (test code = Tube Num CSF) 4 1 [facility] [id number] 03:02:00Colorless (02/25/17 9:02 PM) [facility] [id number] 03:02:02563Achekzpe HermannBODY FLUIDS 2017-02-26 03:02:0055[facility]annFUNGAL - [id number] 03:02:00 Negative (02/25/17 9:02 PM)[facility] EnqhzirRTSAAIAEPG1720-50-28 03:02:00Non Reactive (02/25/17 9:02 PM)[facility]annMOLECULAR RWQKMYKZIL1551-34-09 03:02:00Negative 2(02/25/17 9:02 PM)[facility]ann[facility]LECULAR DIAGNOSTIC 2017-02-26 03:02:00Negative 1(02/25/17 9:02 PM)[facility]ann[facility]AL - SEROLOGY 2017-02-26 03:02:00Negative (02/25/17 9:02 PM)[facility]annCHEM PANEL 2017-02-26 01:42:000.9[facility]annCHE[facility] [id number] 01:42:0023[facility]annCHEM GZAEQ4882-78-90 01:42:004.3[facility]annCHE[facility] DDNXZ3099-00-00 01:42:0011.3[facility]annCHE[facility] INCDD9961-78-02 01:42:68522Xhillcwy HermannCHEM EKAOF0987-88-83 01:42:000.3[facility]annCHE[facility] TMNNU4266-83-98 01:42:0016 [facility] VTVPK1489-36-79 01:42:0017[facility]annCHEM PANEL 2017-02-26 01:42:008.2[facility]annCHE[facility] LWXME5264-26-12 01:42:004.3[facility]annCHE[facility] ACNVS4590-55-61 01:42:41883Cojsnojg HermannCHEM HQQWQ0060-85-45 01:42:000.70[facility]annCHE[facility] OCFXA4774-10-78 01:42:43336Vonudxrc HermannCHEM MIKIO5008-14-91 01:42:008.9[facility]annCHE[facility] WAAGL4506-05-30 01:42:0097 [facility]ann[facility] [id number] 01:42:0026[facility]annCHEM PANEL 2017-02-26 01:42:34549Omweyhwt HermannCHEM EGSVP3238-16-46 01:42:0016[facility]annCHEM MWWGW4190-99-31 01:42:003.9[facility]annCHEM TCMDH4763-33-67 01:42:001.8[facility] IaxllgrGNZSCONUJM2312-35-17 01:42:48568Nvwvfsdv [facility] WSYWSRYNUZ3801-73-67 01:42:0082.2[facility] HvtxyxvLDIPARSGCL8817-35-16 01:42:00 37.1[facility] JuybirmVMWDTXBVSU2451-40-43 01:42:007.4[facility] HermannHEMATOLOGY 2017-02-26 01:42:0014.1[facility] SottvrwZCCCTFNHCH6300-92-35 01:42:00 Test Item Value Reference Range Interpretation Comments MCH (test code = MCH) 27.6 pg 27.0-31.0 [facility] ZgcuqexVJSRNEACOG3186-44-86 01:42:0033.6[facility]annHEMATOLOGY 2017-02-26 01:42:004.52[facility] HgbaolcPIIMNQXWET3635-28-85 01:42:0012.5[facility] EcixlwgUNQKMUEXAT9184-23-98 01:42:007.1[facility] OwfhmdaSKIHCAUYAU4264-62-31 01:42:000.8[facility] QsvpotxOEUFLJOFDN1383-26-36 01:42:002.8[facility] UXSYURJMHE9501-78-02 01:42:003.8[facility] ZddqegzSBLMTCIMKG2409-00-14 01:42:000.4 [facility] XzeisjiVDBZGMIUUT2916-67-97 01:42:0053.4[facility]annHEMATOLOGY 2017-02-26 01:42:0039.1[facility] TepfdayVGRBVFAQVZ2239-60-59 01:42:001.4[facility] QfugzlxTTCQNKSQJD5033-58-55 01:42:005.3[facility] BslkwjyYKALUASRJS6273-57-51 01:42:000.1[facility] MlgqwvaYNGEQZXRBL7834-96-17 01:42:000.1[facility]annURINE AND DFKPZ6804-76-79 01:42:000.2[facility] AND FRYNQ6581-66-76 01:42:00Negative (02/25/17 7:42 PM)[facility] IYCGI7407-73-40 01:42:00Negative *NA*(02/25/17 7:42 PM)[facility] LJUQG7539-92-54 01:42:00Negative *NA*(02/25/17 7:42 PM)[facility] RHYZC6762-84-10 01:42:00Negative (02/25/17 7:42 PM)[facility] EVIQM9993-35-42 01:42:00Negative (02/25/17 7:42 PM)[facility] VJWOK2830-82-38 01:42:00Negative (02/25/17 7:42 PM)[facility] [id number] 01:42:00 Test Item Value Reference Range Interpretation Comments UA pH (test code = UA pH) 6.0 1 5.0-8.0 [facility] [id number] 01:42:00 Test Item Value Reference Range Interpretation Comments UA Spec Grav (test code = UA Spec 1.010 1 Grav) [facility] [id number] 01:42:00Yellow *NA*(02/25/17 7:42 PM) [facility] [id number] 01:42:00Slight Cloudy (02/25/17 7:42 PM)[facility]annVIRAL - ATMSGNYU5751-31-75 01:42:00Negative (02/25/17 7:42 PM)[facility]ann[facility] - IWYFLLYI9650-65-57 01:42:00Negative (02/25/17 7:42 PM)[facility]annCHEM VMUKL8806-33-87 09:02:37759Cobjoxxz HermannCHEM PANEL 2017-01-26 09:02:000.2[facility] HermannCHEM KIHXE0400-21-21 09:02:75275Hdpyllgp HermannCHEM JOVKB9569-70-06 09:02:0012[facility] HermannCHEM PJIZM9781-74-77 09:02:003.3[facility] HermannCHEM TWNVS7101-53-57 09:02:002.4[facility] HermannCHEM BZVOS0186-76-58 09:02:005.7[facility]annCHEM CYCPV6772-71-99 09:02:009.7 [facility]annCHEM XLXPB5008-09-95 09:02:87122Olugujqi HermannCHEM PANEL 2017-01-26 09:02:007.4[facility] HermannCHEM KIBST0869-76-98 09:02:000.7[facility] HermannCHEM ITSVO6533-80-77 09:02:000.40[facility] HermannCHEM WVCAO6358-43-28 09:02:005[facility]annCHEM RQDLG9348-98-45 09:02:0037[facility]annCHEM YLLBP6331-38-65 09:02:0044[facility] HermannCHEM BIEYQ9488-68-18 09:02:003.7 [facility]annCHEM DMUSU9251-24-66 09:02:55029Twiswpap HermannCHEM PANEL 2017-01-26 09:02:0025[facility] HermannCHEM JWJTA4329-39-67 09:02:13201Iapjydmm HermannCARDIAC HFIHUXX9325-29-05 22:26:00<0.02[facility] HermannPARATHYROID RTQJLHB4252-69-04 22:26:000.99[facility] HermannPARATHYROID KSOZDYJ3460-18-90 22:26:001.01[facility] HermannCHEM WYEYU5499-78-54 20:00:002.6[facility] HermannCHEM JDDHH9753-10-61 20:00:47227Enhlsfvu HermannCHEM AXPXT8664-79-08 20:00:000.50 [facility]annCHEM RFJWK5546-56-45 20:00:79200Lntcbwfi HermannCHEM PANEL 2017-01-25 20:00:003.6[facility] HermannCHEM ITWYL9507-45-27 20:00:0025[facility] HermannCHEM ASESP3449-57-44 20:00:69708Msbculyc HermannCHEM MDQHQ7868-66-27 20:00:008.6[facility] HermannCHEM HEQBH0151-19-39 20:00:006.9[facility]annCHEM VRMQU7447-04-53 20:00:01454Dmxjnrvp HermannCHEM HLKGY1196-54-84 20:00:008 [facility]annCHEM QUWYO0315-88-55 08:54:002.7[facility] HermannCHEM PANEL 2017-01-25 08:54:91229Lukbkhye HermannCHEM BIXUM0134-00-64 08:54:000.60[facility] HermannCHEM JTBUJ5224-53-28 08:54:009[facility] HermannCHEM PZMUB6425-38-46 08:54:09517Agxtbxga HermannCHEM MYBVV7241-57-97 08:54:0012.5[facility] HermannCHEM YILQL3585-01-84 08:54:003.5[facility] HermannCHEM EDSAQ0160-17-20 08:54:94007 [facility]annCHEM UPIWM6231-05-93 08:54:0023[facility] HermannCHEM PANEL 2017-01-25 08:54:007.1[facility] HermannCHEM OVZCM4442-92-75 08:54:87742Tdwricjy HermannCHEM GNMGU5292-99-11 08:54:001.7[facility] UargfukGDAZJHQTKQ5814-63-67 08:54:007.4[facility] SzqnlfzUTMQMZTXVL8195-79-93 08:54:0013.6[facility] BENYZHOCKA5891-26-35 08:54:71801Mlhqgxed UltsfyaXMWSGEVBFY7715-88-63 08:54:00 33.4[facility] YvltmjxJVBXOXFGXA5305-97-11 08:54:0082.5[facility] HermannHEMATOLOGY 2017-01-25 08:54:00 Test Item Value Reference Range Interpretation Comments MCH (test code = MCH) 27.6 pg 27.0-31.0 [facility] BdzubuhQGGVSYFLWX2775-40-59 08:54:0010.7[facility] HermannHEMATOLOGY 2017-01-25 08:54:0032.0[facility] SokjlyxXMNVIETKJS4132-51-00 08:54:005.5[facility] JepltduQLMPOENYKE5965-70-05 08:54:003.88[facility] DzsdiivKEEAMHTEER3476-64-45 08:54:007.2[facility] WqvfttbNDDPAWPGFH8956-09-65 08:54:000.4[facility] JXWWVLFBWK8147-91-44 08:54:003.0[facility] PrdsyphHIXVXNCQJT6663-45-93 08:54:002.0 [facility] RapjgkqTFZAZGAUVG9505-69-93 08:54:000.9[facility] HermannHEMATOLOGY 2017-01-25 08:54:000.6[facility] OqmdpbwWOHRIJJTII5930-76-73 08:54:0036.3[facility] KvidauoVGOGZFACJS9376-04-84 08:54:0055.0[facility]URINE AND STOOL 2017-01-25 04:54:00Negative (01/24/17 11:54 PM)[facility] STOOL 2017-01-25 04:54:00Positive *ABN*(01/24/17 11:54 PM)[facility] FEQDM1111-11-44 04:54:00Negative (01/24/17 11:54 PM)[facility] RZMZZ5928-11-81 04:54:00Negative *NA*(01/24/17 11:54 PM)[facility] BAULE4723-60-74 04:54:00Negative (01/24/17 11:54 PM)[facility] NJKNM1924-24-42 04:54:000.2[facility] FZNAR0672-08-31 04:54:00Negative *NA*(01/24/17 11:54 PM)[facility] STOOL 2017-01-25 04:54:00 Test Item Value Reference Range Interpretation Comments UA pH (test code = UA pH) 5.5 1 5.0-8.0 [facility] ACBWB7148-45-01 04:54:00<=1.005 *NA*(01/24/17 11:54 PM)[facility] XXCBH3619-38-89 04:54:00Yellow *NA*(01/24/17 11:54 PM)[facility] IXSEI6670-59-34 04:54:00Clear (01/24/17 11:54 PM) [facility]ARD[facility] TFSAVFC7141-10-08 02:44:0062[facility] LZGPODC3485-27-25 02:44:00<1.0[facility] XELTVAL2275-77-05 02:44:00<0.02[facility] LOVCYXV7858-13-83 02:44:00<1.6 [facility]annCHEM EZQRT3960-98-27 02:44:0014[facility]annCHEM PANEL 2017-01-25 02:44:000.5[facility]annCHEM UACBJ6338-12-31 02:44:0037[facility]annCHEM TAYWB5640-08-76 02:44:56969Xgavjjnr HermannCHEM NJXWW4063-89-63 02:44:000.7[facility]annCHEM CLSTW4185-15-06 02:44:004.7[facility]annCHEM QIYBX3646-44-97 02:44:003.5[facility]annCHE[facility] XLDZR1825-88-09 02:44:0016 [facility]CHE[facility] LUAXU5923-24-57 02:44:008.2[facility]annCHEM PANEL 2017-01-25 02:44:36870Qvefcyvi EsqznwmUWAAALZRSK9063-90-32 02:44:0013.7[facility] AmdgyobFKDSLSUPSV7779-35-18 02:44:0041.6[facility] TusppcmJTVEAGXUMG0249-06-74 02:44:0083.6[facility] MlecwkiNILUUVMYGM1824-95-55 02:44:00 Test Item Value Reference Range Interpretation Comments MCH (test code = MCH) 27.5 pg 27.0-31.0 [facility] EcrualfULBKDVTCUX5122-71-83 02:44:0032.9[facility]annHEMATOLOGY 2017-01-25 02:44:0013.6[facility] NpxyktqSLHWLVXICT9919-93-08 02:44:55500Neqfdjac ZtjehrkHOMUJILJZT9762-29-64 02:44:008.1[facility] VlkxchxNNHIOLIFFA0877-00-97 02:44:005.8[facility] WsocctdJWIVWBZBKW1518-85-09 02:44:004.97[facility] [place] HJXRZXHEQB8016-15-43 02:44:000.4[facility] GdqkxrhKFCQPOODCG7301-86-78 02:44:000.7 [facility] FfemowbTJEIWILOXU8063-79-78 02:44:003.5[facility]annHEMATOLOGY 2017-01-25 02:44:007.1[facility] TabitdzIPBPPIMLQV0773-66-48 02:44:000.6[facility] TsgxkluIBOEYUFDUM5324-16-25 02:44:001.8[facility] ExnyrgfFLHWMOEBRX3171-88-42 02:44:0059.9[facility] YpouatwQXCRTCCJMS2982-19-35 02:44:0031.7[facility] UHBBDEV7031-51-40 09:22:00 Test Item Value Reference Range Interpretation [...] S Sulfamethoxazole (test code = 47) POCT-GLUCOSE WHVNQ7297-09-63 23:15:00 Test Item Value Reference Range Interpretation Comments POC-GLUCOSE METER 227 mg/dL 70-110 H TESTED AT [address] ([facility]) (test code [facility] [place] = 1538) [address] URINALYSIS W/ FIHABNQYDIQ5914-68-04 22:36:00 Test Item Value Reference Range Interpretation [...] 1663) SOURCE(BEAKER) (test code = 2795) KETONE, [id number] 22:32:00 Test Item Value Reference Range Interpretation Comments KETONES, BLOOD (BEAKER) (test code 0.6 mmol/L <0.4 H = 1103) BLOOD GAS, [id number] 22:30:00 Test Item Value Reference Range Interpretation [...] (test code = 1819) 21.0 % SCREEN, [id number] 22:29:00 Test Item Value Reference Range Interpretation Comments TEST URINE (BEAKER) (test Negative code = 583) TROPONIN [id number] 21:42:00 Test Item Value Reference Range Interpretation [...] CK-MB Reference Range:<5 Normal5-10 Borderline>10 AbnormalCOMPREHENSIVE METABOLIC [id number] 21:34:00 Test Item Value Reference Range Interpretation [...] S NOT APPLICABLE FOR DIALYSIS PATIEN TS. [id number] 21:32:00 Test Item Value Reference Range Interpretation Comments LIPASE (BEAKER) (test code = 749) 28 U/L 6-51 CBC W/PLT COUNT & AUTO SOMGQXVEOLYG7870-24-71 20:55:00 Test Item Value Reference Range Interpretation [...] NEUTROPHILS ABSOLUTE COUNT 3.70 K/ L 1.80-8.00 ([facility]) (test code = 670) LYMPHOCYTES ABSOLUTE COUNT 2.30 K/ L 1.48-4.50 (BEAKER) (test code = 414) MONOCYTES ABSOLUTE COUNT (BEAKER) 0.40 K/ L 0.00-1.30 (test code = 415) EOSINOPHILS ABSOLUTE COUNT 0.20 K/ L 0.00-0.50 (BEAKER) (test code = 416) BASOPHILS ABSOLUTE COUNT (BEAKER) 0.00 K/ L 0.00-0.20 (test code = 417) POCT-GLUCOSE [id number] 20:56:00 Test Item Value Reference Range Interpretation Comments POC-GLUCOSE METER 446 mg/dL 70-110 Notified Ciera Ortiz MD/TESTED AT ([facility]) (test code [address] [place] = [address] [facility] [address] BEDSIDE GLUCOSE EARQMOK5009-06-99 15:13:19119Rtupkibn HermannBEDSIDE GLUCOSE UCNSSVN1010-41-28 04:18:99517Rhlpgrie LhiarwtIWMSSZXOL0943-46-07 03:05:000.14 [facility] HzpfcivFIJFPVEPM4937-57-85 03:05:008[facility] ZgrfdxkWYRCSTEOU1852-40-72 03:05:000.2[facility] AujnmjyIRSPOITTA0367-14-50 03:05:0027[facility] [place] SNMGEINPA1757-50-85 03:05:0013.2[facility] IzyrhafEBEVPBVNW3093-53-46 03:05:008.8 [facility] TcncrvcIDNHJDCEX6830-53-72 03:05:007.6[facility] HermannCHEMISTRY 2011-11-29 03:05:0016[facility] SxaaeyiZOBUCGQZH7976-97-36 03:05:003.8[facility] UkmbpipLKPDQLSFL0934-93-14 03:05:003.8[facility] RaaqqalWERURVULQ5560-93-19 03:05:001.0[facility] TaqwweyEPJRWMTNR4579-30-17 03:05:39279Pcobyvcb [place] RYAJKYLAY7866-58-35 03:05:0013[facility] RnpmgvbIOMWPQZNH4308-51-43 03:05:79211 [facility] QrzriehZKKWDVHOJ4119-70-91 03:05:0098[facility] HermannCHEMISTRY 2011-11-29 03:05:000.7[facility] PbftcqtHBEVQAAVW4583-77-37 03:05:0011[facility] BxdvwnxLVFFQUSQK8700-02-93 03:05:004.2[facility] DbmxvczEGQBUHCQQ2789-49-70 03:05:27159Sjntnifl IlufvujVLAJCVEWYR6754-01-67 03:05:004.41[facility] [place] TQGXPBURLZ1049-74-09 03:05:005.7[facility] KqdgxdpTFHFXFETUX0809-73-72 03:05:00 33.2[facility] PuhwidaLHGGJZZKMY8764-88-96 03:05:0012.9[facility] HermannHEMATOLOGY 2011-11-29 03:05:0013.8[facility] UzwjhloKLAKGXCCDO8823-27-66 03:05:0088.4[facility] EehpjevXVBJKTFQDL6381-32-14 03:05:00 Test Item Value Reference Range Interpretation Comments MCH (test code = MCH) 29.3 pg 27.0-31.0 N [facility] EyyzlvhLOACYIAXKI1108-91-26 03:05:0038.9[facility] HermannHEMATOLOGY 2011-11-29 03:05:007.5[facility] IvgrtkzDGSKWGYXQN2502-44-06 03:05:49800Lmfcixvt XscrguxWFVSSTXCMQ9416-64-79 03:05:0057.5[facility] LsjmtlmKFAYRIKKKN1556-91-84 03:05:000.5[facility] ZzjbnomUTKGHGWYRK1951-82-28 03:05:001.5[facility] THXGTBTNDO8518-85-96 03:05:005.3[facility] YmvggueOTJIZZRZBW7228-04-66 03:05:00 35.2[facility] MrkorwhSHHMJEIYLX3020-41-51 03:05:002.0[facility] HermannHEMATOLOGY 2011-11-29 03:05:003.3[facility] DsykypyYWCXBYGYEZ2192-88-83 03:05:000.1[facility] VrpdfgnFQHIOMYMVU2763-30-89 03:05:000.3[facility] PtgtkadVDIWCTHIWW1768-18-97 03:05:000.0[facility] NvganavPZVUMDHHZO2913-43-92 03:05:00 Test Item Value Reference Range Interpretation Comments UA Spec Grav (test code = UA Spec 1.010 1 N Grav) [facility] AixmyrjEUOCNOXQIX7198-87-34 03:05:00 Test Item Value Reference Range Interpretation Comments UA pH (test code = UA pH) 5.5 1 5.0-8.0 N [facility] GjehecnDWZSRPWGGI1503-44-23 03:05:00Yellow *NA*(11/28/2011 22:05:00) [facility] HjeshbhIFCVXNUNOO2963-35-79 03:05:00Clear (11/28/2011 22:05:00)[facility] ZbauczaUDPYNJAWUM5835-95-44 03:05:00Negative (11/28/2011 22:05:00)[facility] FspdkdbSGUVOXWKIJ1395-11-23 03:05:00Negative (11/28/2011 22:05:00)[facility] BjghwljTWSXSVCCVF7798-99-51 03:05:000.2[facility] XyrqpgzIMBKYTNQBI5053-76-56 03:05:00>=1000 mg/dL *ABN*(11/28/2011 22:05:00)[facility] HermannURINALYSIS 2011-11-29 03:05:00Negative mg/dL *NA*(11/28/2011 22:05:00)[facility] YHETCCPNXP0786-02-14 03:05:00Negative mg/dL (11/28/2011 22:05:00)[facility] SzbulebQTRFGMKSOI1923-45-66 03:05:00Negative (11/28/2011 22:05:00)[facility] TgbihhrIUNMORFGKD5744-58-30 03:05:00Negative *NA*(11/28/2011 22:05:00)[facility] QijjtccIDYMXKMXUH5907-32-20 03:05:00Rare /LPF (11/28/2011 22:05:00)[facility] HospitalGqednmcPNZWGNKLIN7770-83-30 03:05:00Occasional /HPF (11/28/2011 22:05:00) [facility] OkmmbyrRHMPFUPKRO3978-65-68 03:05:000-2 /HPF (11/28/2011 22:05:00) [facility] EwpvewoSUQBKTHJWA1079-11-25 03:05:000-2 /HPF (11/28/2011 22:05:00) [facility] FgiqmxkMMIQBTCKGF5062-68-30 03:05:00Performed (11/28/2011 22:05:00) [facility]annBEDSIDE GLUCOSE LPZCHFH1700-28-81 02:45:00>400[facility]annBEDSIDE GLUCOSE EMKHVHA4001-77-86 06:10:60577Raeaiepw HermannBEDSIDE GLUCOSE XLNFMNN8043-04-82 05:04:0094[facility] RjyjditITIOEPAMG8068-79-16 03:06:00 72[facility] ChmsjomZVQKHPVFQ7387-85-28 03:06:0040[facility] HermannCHEMISTRY 2011-10-25 03:06:007.42[facility] GezvnbsDBSNYKZTO9697-24-71 03:06:000.0[facility] EntclifZDSTENDME7163-44-36 03:06:00Rm Air (10/24/2011 22:06:00)[facility] [place] [facility] AGYUOSNWA3724-68-89 03:06:0095.0[facility] ClxoiwdXXPIKQNCS9924-15-53 03:06:001 [facility] OoqlidxRWSUAIWWK9530-72-52 03:06:0026[facility] HermannCHEMISTRY 2011-10-25 03:05:01844Muwhzpuf WbgutdsORDDQXEKV5973-92-19 03:05:62332Oldhhplh MlhvuhmHTXAJZNSC5471-25-23 03:05:0019[facility] KykqpznOZZWFXVFO5143-98-09 03:05:008.4[facility] ZyuatwlIWDQSDKJJ2492-90-26 03:05:53392Ivicvsda [place] GJTDKRETS5227-80-48 03:05:24978Jalmjoue MnhtirrHVKZSFYAB5949-45-72 03:05:003.8 [facility] VmpjubeJORRIQEPS3644-72-46 03:05:003.7[facility] HermannCHEMISTRY 2011-10-25 03:05:0027[facility] FyteubaYWFUREUBZ0086-18-51 03:05:0012.2[facility] GygpyljFUVVUSBYU5999-56-72 03:05:004.2[facility] TxacrusTSJVFJFCB1143-43-75 03:05:000.8[facility] FhmolssKKLUIELRH3415-98-19 03:05:61447Ifriivbq [place] SYJQVPLFC3597-36-23 03:05:0024[facility] NdfmsdiOQEFRFHVZ6382-97-55 03:05:007.5 [facility] CcfagvbWCRULFWOS1327-42-84 03:05:0010[facility] HermannCHEMISTRY 2011-10-25 03:05:99494Acxlhxaq QzgqnwqSXOTIJQUI1245-63-37 03:05:000.3[facility] TwoqiflWIXRXFGHZ7611-03-48 03:05:001.0[facility] JwzkpyjXHUBBXNPV6715-00-76 03:05:0017[facility] MpgcmroPQNMAQHPU5274-23-59 03:05:000.22[facility] [place] WVNDTFSNFO2083-16-08 03:05:000.1[facility] UetlasrAFDGBFTRTM6409-15-24 03:05:002.0 [facility] JszwifgDJJCRPDJQW7315-66-62 03:05:000.0[facility] HermannHEMATOLOGY 2011-10-25 03:05:000.4[facility] AjskxawBXPGNAEQIL7585-04-26 03:05:0029.4[facility] UfwgegySSWAMQZZNC5535-95-21 03:05:004.3[facility] PkyawdbCMPOZMKTDR8951-41-89 03:05:005.7[facility] OlkcnegOCVKJFNFAX0350-95-59 03:05:000.4[facility] [place] ZGTRYGVUUY4878-22-63 03:05:001.2[facility] XcjrfciLRZUGPSICB5837-45-34 03:05:00 63.3[facility] MsdumqgFPKYIWHDWL6009-85-86 03:05:0014.0[facility] HermannHEMATOLOGY 2011-10-25 03:05:94184Cbycgzln MwwlticWSKYTOKUVM3492-79-47 03:05:008.0[facility] YqykixtLZRNTHMTUU2701-75-76 03:05:0013.3[facility] XahqvbmUZYQMQZZUS6454-62-31 03:05:0039.4[facility] AbyiydwQUHGHXWTBY8167-54-54 03:05:0086.2[facility] [place] ZMWDOGJZXP9151-04-10 03:05:00 Test Item Value Reference Range Interpretation Comments MCH (test code = MCH) 29.1 pg 27.0-31.0 N [facility] YiazpwsJZTFJXSAAX1358-60-55 03:05:0033.8[facility] HermannHEMATOLOGY 2011-10-25 03:05:006.9[facility] GbsnzvcPGHYEBBJUP9976-92-60 03:05:004.57[facility] VkrequpASWCMJVHDJ3177-92-06 03:05:00Positive *ABN*(10/24/2011 22:05:00)[facility] VbucgbaFEIMKCJMGV4991-05-99 03:05:00Negative (10/24/2011 22:05:00)[facility] UlravbpFVHUYZSPNU7450-35-78 03:05:00Negative (10/24/2011 22:05:00)[facility] HospitalKysbnxjPULCZBMBVY7109-57-59 03:05:00>=1000 mg/dL *ABN*(10/24/2011 22:05:00) [facility] HospitalKbztjbrHFARZFHRHC1875-27-53 03:05:00 Test Item Value Reference Range Interpretation Comments UA pH (test code = UA pH) 6.0 1 5.0-8.0 N [facility] KzwsgtdLUNOJEXOND7715-40-39 03:05:00 Test Item Value Reference Range Interpretation Comments UA Spec Grav (test code = UA Spec 1.015 1 N Grav) [facility] HospitalDittlviAITLAKFTVM4199-10-30 03:05:00Yellow *NA*(10/24/2011 22:05:00) [facility] HospitalVnxtfglFTXPRVMDTV2177-05-41 03:05:00Clear (10/24/2011 22:05:00)[facility] HospitalWhncrwoUVYNBXHIKC6002-49-18 03:05:000.2[facility] MjcnakrLWQUNUNUQQ7080-61-86 03:05:00Negative *NA*(10/24/2011 22:05:00)[facility] HwqoyijTGEGPHMAOK3169-73-13 03:05:00Negative (10/24/2011 22:05:00)[facility] IdqwcbtCUBKMVLCAL9365-06-46 03:05:00Negative *NA*(10/24/2011 22:05:00)[facility] GlhjkfqWZBJDLVJHK7865-97-18 03:05:00Rare /LPF (10/24/2011 22:05:00)[facility] KxeqnlrWYGDGKNMOM4554-80-55 03:05:00Moderate /HPF (10/24/2011 22:05:00)[facility] DfxwzayQBOYNWCUXY2920-57-54 03:05:000-2 /HPF (10/24/2011 22:05:00)[facility] HospitalJgmgciuJNKSGVJNJB1400-75-10 03:05:00Performed (10/24/2011 22:05:00)[facility] HospitalWbincarASOUZSEWHF0513-25-21 03:05:006-10 /HPF *ABN*(10/24/2011 22:05:00)[facility] ZhiyauxVPPKCWTCHI9598-48-72 03:05:00Rare /LPF (10/24/2011 22:05:00)[facility] HermannBEDSIDE GLUCOSE TESTING 2011-10-25 02:43:00>400[facility] HermannBEDSIDE GLUCOSE VFMIDNN5267-39-70 08:15:63559Bxealuge HermannBEDSIDE GLUCOSE SMXPFOC7847-90-83 07:07:00>400 [facility] SszqrkcPUXDZHOLQ0867-90-68 05:10:03424Piqusnhs HermannCHEMISTRY 2011-05-23 05:10:000.8[facility] DhpeatyDUVHNNRVG9192-74-22 05:10:0026[facility] HoesokiAOSZWRDFA6047-72-24 05:10:0096[facility] EiygwnxEQZTHJSKC3587-83-20 05:10:003.9[facility] HepxkcvDBIEWRXZS8800-31-17 05:10:0012.9[facility] [place] BTHSQZERZ4353-38-57 05:10:004.0[facility] XuqnqsdJJFDAFFVZ3267-22-70 05:10:007.8 [facility] ChyxgibTODSWWSAH0841-74-30 05:10:0015[facility] HermannCHEMISTRY 2011-05-23 05:10:56162Nknzufkn ByhgptaTIQYDFFFO6454-05-26 05:10:001.1[facility] BvzpxhbGSIBHEBKQ1528-29-21 05:10:003.8[facility] CriiqiyHSOYMOBHQ9004-19-70 05:10:008.6[facility] AndfndeZFKOJYKJH8733-63-79 05:10:0011[facility] WATGVINHX5222-61-78 05:10:000.4[facility] HigymsmPJHOEGTGD5618-09-93 05:10:73206 [facility] GdviuetVIMLXQERM4687-31-43 05:10:0015[facility] HermannCHEMISTRY 2011-05-23 05:10:48781Cnkbnmvj LmikeriYNAWQFTGE1242-79-91 05:10:0012[facility] XghalgqKGGJLSOJT2929-18-15 05:10:26382Zecajqin VqxfnwfHMVKZSSIH2393-70-57 05:10:000.36[facility] YzbaadqWYNSXDSSLB0199-25-36 05:10:27449Gvtprobv [place] UUBKAEYGGD6010-49-83 05:10:0034.3[facility] UebsjasIYLBOFKHSB7030-91-57 05:10:00 7.9[facility] SulnzqkZUOCEFJFBH4592-48-53 05:10:0013.0[facility] HermannHEMATOLOGY 2011-05-23 05:10:00 Test Item Value Reference Range Interpretation Comments MCH (test code = MCH) 29.5 pg 27.0-31.0 N [facility] QsizhsvZDEUWTQAXW8792-53-00 05:10:0038.1[facility] HermannHEMATOLOGY 2011-05-23 05:10:0086.0[facility] LlznpxnSPFEXZHJSH2412-04-73 05:10:004.43[facility] LgujbfvFCNVPKFISH6573-55-55 05:10:005.9[facility] HiyeghyWISQWFSATY4364-30-11 05:10:0014.0[facility] PthffbsKKZUELQLZS2643-80-58 05:10:000.0[facility] [place] NNOHDBGTPY2879-70-79 05:10:001.7[facility] FdsayhlCOYIGPIAHY0507-02-22 05:10:000.3 [facility] GtdsmxgJZOYUSIACU6919-99-05 05:10:000.6[facility] HermannHEMATOLOGY 2011-05-23 05:10:003.8[facility] NjzrlrqQGFXKBQWSR3334-49-44 05:10:000.1[facility] BydadolZKQSSSBEDM9384-14-76 05:10:004.7[facility] CpufkyjTPNWXXXSFU3016-36-03 05:10:0028.9[facility] WucqlqkYOJTJEEVEV3424-60-99 05:10:002.5[facility] [place] ONTCUKPQZI9327-62-48 05:10:0063.3[facility] QxjmmkqRJNZORCWPA2745-10-83 05:10:000- 2 /HPF (05/22/2011 23:10:00)[facility] OhbudmyYVTJEWKBSX6481-40-08 05:10:00 Occasional /HPF (05/22/2011 23:10:00)[facility] LazznsoJCPQHPZYPZ2190-61-05 05:10:00Negative (05/22/2011 23:10:00)[facility] CimojvgQMEARYPIRC8058-67-91 05:10:00Negative *NA*(05/22/2011 23:10:00)[facility] HospitalXkreklbWHADNDZRXN3216-62-00 05:10:00>=1000 mg/dL *ABN*(05/22/2011 23:10:00)[facility] HermannURINALYSIS 2011-05-23 05:10:00Negative (05/22/2011 23:10:00)[facility] HermannURINALYSIS 2011-05-23 05:10:00 Test Item Value Reference Range Interpretation Comments UA pH (test code = UA pH) 5.0 1 5.0-8.0 N [facility] XvrftvoNIEZFEBCYX5335-66-83 05:10:003-5 /HPF (05/22/2011 23:10:00) [facility] FyucwnkOCAEXWXXBV0205-25-58 05:10:00Rare /LPF (05/22/2011 23:10:00) [facility] ZnurllaKQHHMFOKSL4635-42-36 05:10:000.2[facility] HermannURINALYSIS 2011-05-23 05:10:00Negative (05/22/2011 23:10:00)[facility] HermannURINALYSIS 2011-05-23 05:10:00Negative *NA*(05/22/2011 23:10:00)[facility]annURINALYSIS 2011-05-23 05:10:00Negative (05/22/2011 23:10:00)[facility]annURINALYSIS 2011-05-23 05:10:00Performed (05/22/2011 23:10:00)[facility]annURINALYSIS 2011-05-23 05:10:00Yellow *NA*(05/22/2011 23:10:00)[facility] HermannURINALYSIS 2011-05-23 05:10:00Clear (05/22/2011 23:10:00)[facility]annURINALYSIS 2011-05-08 00:16:00Negative (05/07/2011 18:16:00)[facility]annURINALYSIS 2011-05-08 00:16:000.2[facility] JnwfkbdAQRUTBTZOA5506-57-35 00:16:00Negative *NA*(05/07/2011 18:16:00)[facility] HzbipbuNCBQOLARFS8752-44-51 00:16:00Large *ABN*(05/07/2011 18:16:00)[facility] KfdpuxwTVOJRNJGMU7076-53-68 00:16:006-10 /HPF *ABN*(05/07/2011 18:16:00)[facility] TmjltnxMTWZTNYGXW4932-55-92 00:16:00 Occasional /HPF (05/07/2011 18:16:00)[facility] OktzuxlWOCIQHCQSL3381-30-30 00:16:00Performed (05/07/2011 18:16:00)[facility] IydpnlmIYNXYPJHMJ5320-85-35 00:16:00Few /LPF (05/07/2011 18:16:00)[facility] VluzfmwIRTRBQHVLO7594-02-49 00:16:00Negative (05/07/2011 18:16:00)[facility] OibinlpSZSCBXPDTM4981-85-28 00:16:0021-50 /HPF *ABN*(05/07/2011 18:16:00)[facility] 2011-05-08 00:16:00Trace *ABN*(05/07/2011 18:16:00)[facility] 2011-05-08 00:16:00>=1000 mg/dL *ABN*(05/07/2011 18:16:00)[facility] URMMNLHVVQ6446-39-83 00:16:00Negative (05/07/2011 18:16:00)[facility] JOADRUEEJA8016-31-70 00:16:00 Test Item Value Reference Range Interpretation Comments UA Spec Grav (test code = UA Spec 1.010 1 N Grav) [facility] HospitalNmcnsejTGPWRPGIGV8363-31-33 00:16:00Clear (05/07/2011 18:16:00)[facility] HospitalYzybdwlMQCNRRYAAQ9559-97-02 00:16:00 Test Item Value Reference Range Interpretation Comments UA pH (test code = UA pH) 6.0 1 5.0-8.0 N [facility] VothbphCMHYAOVDFV0555-32-49 00:16:00Yellow *NA*(05/07/2011 18:16:00) [facility] NGUAZUS5646-99-79 06:51:58342Ncvevuxl Jona VDUFCXPEJ7145-02-31 04:20:00Negative (04/19/2011 22:20:00)[facility] [place] UBDVHXVEV0846-13-23 04:20:004.1[facility] UzkanstVGVARJAWX9774-49-32 04:20:0015 [facility] OuenulkNMOVRIVNM8255-69-68 04:20:009.2[facility] HermannCHEMISTRY 2011-04-20 04:20:0096[facility] GpmytuzVJOYHQLHK4548-56-44 04:20:0016.2[facility] YanpdvmZFVQMSSBZ4594-98-83 04:20:0024[facility] OxttgwcOQKXHVCON8318-57-70 04:20:004.0[facility] EwxarbfAOMCECELO7694-51-42 04:20:008.1[facility] ICMOLEYQV8835-23-23 04:20:000.4[facility] ZzerksxNZDHJUCAW3588-63-21 04:20:0092 [facility] MrdgxktEBRCTPCND1620-53-49 04:20:004[facility] GgvtafmKEGECLUOG9082-51-06 04:20:0014[facility] BmgofgfNTPQXWMUZ3116-00-62 04:20:001.0[facility] [place] DPKZUHVVG5703-55-44 04:20:62079Jkedwzqg YqxdnzuRETXGIIZL7770-49-60 04:20:000.8 [facility] MuqoeohYDJPUHDEO1065-64-26 04:20:0012[facility] HermannCHEMISTRY 2011-04-20 04:20:004.2[facility] DydlwxyNPWXZNVZZ7485-14-63 04:20:83783Besaeija LuxcxekEPVGXEZMH3127-98-18 04:20:08860Fwggzloo YooqkgyEMQXJSKQB7689-16-29 04:20:0070[facility] FjbzqovEQQUAQFWKQ0340-37-77 04:20:007.9[facility] [place] AXZUQOGHPN4834-60-07 04:20:80067Tllyxzjz JqxeoieRSAJSNBTXG1885-38-82 04:20:00 4.54[facility] OswpoyzLZPAWKRTEK0077-92-79 04:20:0013.3[facility] HermannHEMATOLOGY 2011-04-20 04:20:00 Test Item Value Reference Range Interpretation Comments MCH (test code = MCH) 29.3 pg 27.0-31.0 N [facility] JqcnhunFOMEYUNSXU5520-78-18 04:20:0033.9[facility]annHEMATOLOGY 2011-04-20 04:20:0014.0[facility] OducrrrKNERYVZQME7367-81-55 04:20:0039.3[facility] SpqbwigLSYZYRMWDA5347-74-84 04:20:0086.5[facility] IfflzvcDUQTMSJEMM3788-93-75 04:20:008.6[facility] NyomtjsCVAXQYCIAF5707-47-59 04:20:000.1[facility] ZDBICBUAPK5715-87-58 04:20:000.1[facility] WohaojmZQGLLDFEMF8650-54-23 04:20:000.9 [facility] WtpzeztSXWFSQMDNY1976-62-96 04:20:0019.9[facility] HermannHEMATOLOGY 2011-04-20 04:20:005.4[facility] ZovmidwHTBEVPMOJZ9493-89-86 04:20:0073.1[facility] QsiedypGLNLKQGTPW0003-82-83 04:20:001.7[facility] KyyewluBUNIJRZUSF3062-91-56 04:20:000.5[facility] UogkoptVGHSVFATRZ8452-39-61 04:20:000.7[facility] [place] JFTUFPAJJZ9966-60-14 04:20:006.3[facility] JmhlpdnKYKLFYMDOU1460-87-88 02:29:00 Negative *NA*(04/19/2011 20:29:00)[facility] BwobvcpTJCZKBRQJJ6675-66-19 02:29:00 Negative *NA*(04/19/2011 20:29:00)[facility] QedqprrODSPRFWHAR4951-48-54 02:29:00 Negative (04/19/2011 20:29:00)[facility] WpnmbkhCKDWGFWVIY2142-74-39 02:29:00 Negative (04/19/2011 20:29:00)[facility] MverfrqUFEUBEVZIU5482-81-72 02:29:00 Test Item Value Reference Range Interpretation Comments UA pH (test code = UA pH) 6.0 1 5.0-8.0 N [facility] DgavavtHODKZHLZZX9277-97-30 02:29:00>=1000 mg/dL *ABN*(04/19/2011 20:29:00)[facility] NzujcgrFDGSNHGYRO1551-22-85 02:29:00Performed (04/19/2011 20:29:00)[facility] UdivhfhKMOVRZGIVP3160-90-85 02:29:00Negative (04/19/2011 20:29:00)[facility] DqzunvmZFHLSGAZAP3101-09-03 02:29:000.2[facility] EMOVRKBBJB4342-49-89 02:29:00Negative (04/19/2011 20:29:00)[facility] CFNDCSKHEL8195-48-19 02:29:00Occasional /HPF (04/19/2011 20:29:00)[facility] JipxdxyWKWBRHPTHG4890-27-27 02:29:00Occasional /LPF (04/19/2011 20:29:00) [facility] EuzulanQTEHDKKATT2998-91-27 02:29:003-5 /HPF (04/19/2011 20:29:00) [facility] GbmmcmwSQEYKJHOFA3506-33-72 02:29:000-2 /HPF (04/19/2011 20:29:00) [facility] IoqcngqINLJQBEXSG6588-90-84 02:29:00Clear (04/19/2011 20:29:00)[facility] CnkimzjDFDPPTZVWK5818-18-93 02:29:00Yellow *NA*(04/19/2011 20:29:00)[facility]annB[facility] GLUCOSE WYWRRTS5819-52-70 05:47:52170Iunepuyo HermannCHEMISTRY 2011-03-26 02:45:00<3[facility] VkpsetwTOERJCTUQ9211-81-92 02:45:009.2[facility] UinoyxhSJTDTDUFZ9667-92-39 02:45:0014.0[facility] CxebkewBDDIVWZDX7875-25-48 02:45:0025[facility] HuxssdeVIMTPOXAZ9875-80-79 02:45:0097[facility] FAUNYIBFJ7459-54-01 02:45:004.0[facility] YvkmuofANOWLWZEU7578-30-79 02:45:000.7 [facility] HsqnkivMWXDWHHWS1322-41-05 02:45:39319Zrcvohwe HermannCHEMISTRY 2011-03-26 02:45:000.5[facility] EqohomqCONAVVBIG0213-66-27 02:45:0069[facility] DpdxspxIAJZLPTON2815-74-11 02:45:0014[facility] HofpfnsHNITNVGYB1889-13-68 02:45:003.9[facility] JjksyatKUEMCERUJ1158-35-02 02:45:007.8[facility] [place] IRZQUBZUB8026-41-52 02:45:0019[facility] VpnirqaHIAWNGRBP7368-31-48 02:45:001.0 [facility] KlyqwlbNXWUQPMWI9378-51-33 02:45:003.9[facility] HermannCHEMISTRY 2011-03-26 02:45:0013[facility] KpujajuJDHKDOLFS9192-15-22 02:45:98377Kcgrqkwq WwkhdllEEFVVZPTN0102-02-20 02:45:73324Ccnyggwl QpcamvvJCHWTFJDHU7793-89-06 02:45:0012.7[facility] AbpviqwXUEIMGIPKV5960-25-61 02:45:0014.0[facility] PYWFZARAAT2815-92-34 02:45:0036.9[facility] RapzpkmMEJINGABDE1059-69-97 02:45:00 85.5[facility] OlahtnoWFOVFAOMIW2511-91-59 02:45:00 Test Item Value Reference Range Interpretation Comments MCH (test code = MCH) 29.5 pg 27.0-31.0 N [facility] JhcpmzfUMQHIEFJPJ5975-83-92 02:45:0034.5[facility] HermannHEMATOLOGY 2011-03-26 02:45:65237Cwhqzxsa TnfevyhBANVZJJYWB8576-28-65 02:45:008.2[facility] SihcqcdFXLWDPIDOM9585-83-60 02:45:006.9[facility] TrtqgbdZUSPMQYYRL6954-26-19 02:45:004.32[facility] PxprmvePNHSPBSJIT0552-80-61 02:45:000.5[facility] [place] LVMURTABTB0114-80-80 02:45:004.6[facility] SbojnzmSXVKHENMEO2890-27-86 02:45:001.9 [facility] HeukrkfKJHNYLAYNL4603-56-11 02:45:000.3[facility] HermannHEMATOLOGY 2011-03-26 02:45:000.1[facility] JqovupwCDDWUAKIQV0185-15-99 02:45:000.0[facility] IifzilaAGMVSFVMGB5170-95-53 02:45:0027.2[facility] DsvkuyqGVPEXIUYNT6298-92-11 02:45:0066.3[facility] LlltamzLFLLUGFNLU7070-26-70 02:45:004.8[facility] AIODQXAEEH6760-92-97 02:45:001.2[facility] HayloveZQDMOOKAYL5384-92-35 02:00:00 Occasional /HPF (03/25/2011 20:00:00)[facility] StlembbACOPRNANDR4379-28-13 02:00:00Occasional /HPF *ABN*(03/25/2011 20:00:00)[facility] HermannURINALYSIS 2011-03-26 02:00:00Rare /LPF (03/25/2011 20:00:00)[facility] HermannURINALYSIS 2011-03-26 02:00:000-2 /HPF (03/25/2011 20:00:00)[facility] HermannURINALYSIS 2011-03-26 02:00:000-2 /HPF (03/25/2011 20:00:00)[facility] HermannURINALYSIS 2011-03-26 02:00:00Negative (03/25/2011 20:00:00)[facility] HermannURINALYSIS 2011-03-26 02:00:00Performed (03/25/2011 20:00:00)[facility] HermannURINALYSIS 2011-03-26 02:00:00Negative (03/25/2011 20:00:00)[facility] HermannURINALYSIS 2011-03-26 02:00:00Negative (03/25/2011 20:00:00)[facility] HermannURINALYSIS 2011-03-26 02:00:000.2[facility] SjsizeiLRVRIQHXAI3417-49-94 02:00:00Yellow *NA*(03/25/2011 20:00:00)[facility] BzavyfaPSZCLOQVPW7764-16-44 02:00:00Clear (03/25/2011 20:00:00)[facility] JwpbpxqCKWEFJJEQU8851-53-79 02:00:00Negative *NA*(03/25/2011 20:00:00)[facility] WjvzmoxBWXNFSTUOZ2522-59-46 02:00:00>=1000 mg/dL *ABN*(03/25/2011 20:00:00)[facility] PeaoaeyBMOQQZMOUS5419-45-28 02:00:00 Negative *NA*(03/25/2011 20:00:00)[facility] OapgiojSVPSEFTUHD4414-44-09 02:00:00 Test Item Value Reference Range Interpretation Comments UA pH (test code = UA pH) 6.0 1 5.0-8.0 N [facility] NwkdtqiPLRYIJILFX9642-08-62 02:00:00Negative (03/25/2011 20:00:00) [facility] HermannBEDSIDE GLUCOSE YNDOOND3538-03-44 16:26:75389.0[facility] KPFBITSBI8643-63-53 15:30:00<0.6[facility] RctkrplREHASINIT4665-88-82 15:30:00 <0.5[facility] YnymmnvALWZDSBDA1965 15:30:0077.0[facility] HermannCHEMISTRY 2011-02-11 15:30:0077.0[facility] GjlobblGTKSVOQFR5857-48-67 15:30:00<0.02 [facility] HermannBEDSIDE GLUCOSE XVPSZRU7519-27-00 12:00:44043.0[facility] QEVBAHKHQ0813-47-04 09:29:001.5[facility] VbqykusTDZAVKKOK6733-11-91 09:29:07492.0 [facility] IpklmibEGYJDIHBW4644-00-36 09:29:0011.0[facility] HermannCHEMISTRY 2011-02-11 09:29:007.8[facility] UrxgdavCJJLORSQD4469-62-25 09:29:0013.7[facility] UbkbjmoWJCCXMERH2468-86-09 09:29:000.6[facility] TozrepnNMBTKNJTA3902-75-03 09:29:42718.0[facility] UnwnwdkKLDFUYOCF4788-58-08 09:29:003.7[facility] HBNOLUGXJ4047-54-83 09:29:53539.0[facility] FltdqdtRTVXWPYKJ0060-00-39 09:29:00 24.0[facility] BvcgaumZDTJXSBXN1574-13-63 09:29:00<0.02[facility] OCNQJNQRO9348-15-39 09:29:0071.0[facility] RskuqraRSBSIZIBY4550-93-50 09:29:0071.0 [facility] OanppqvSDGRCFVFYY7007-89-29 09:29:007.8[facility] HermannHEMATOLOGY 2011-02-11 09:29:0014.1[facility] TkhbixqUYEHLYVONF1474-76-89 09:29:006.8[facility] WjvorzdVKRACFVBGN6260-27-83 09:29:0011.8[facility] HexkobnZELLQZTMSA6594-99-64 09:29:004.11[facility] UqogxzbUXUYNCSVIO9264-94-03 09:29:0035.3[facility] [place] OCNQTFTDZS9418-24-25 09:29:00 Test Item Value Reference Range Interpretation Comments MCH (test code = MCH) 28.7 pg 27.0-31.0 N [facility] LgmkunuHCCZYAXPHD5553-36-22 09:29:0085.7[facility] HermannHEMATOLOGY 2011-02-11 09:29:43682.0[facility] PophpmvFQNRCVYIPL5311-40-82 09:29:0033.5 [facility] DuijdlbXAPTCDUWRK4577-94-88 09:29:0026.3[facility] HermannHEMATOLOGY 2011-02-11 09:29:0065.8[facility] JlucepjWMVOIYQYCT9913-29-99 09:29:006.1[facility] CjknzljXZWSVLEOAN8640-04-19 09:29:001.2[facility] FawnizzYBKLIOZARY4857-35-15 09:29:000.6[facility] JytupagMYNSKTUVLC2412-04-57 09:29:004.5[facility] HXNZRICAUO4410-50-93 09:29:001.8[facility] KoydvijWLYQQADPVV2805-05-36 09:29:000.4 [facility] CmczcfrLYCGOJIVMV7011-84-23 09:29:000.0[facility]annHEMATOLOGY 2011-02-11 09:29:000.1[facility] HermannBEDSIDE GLUCOSE NUPKYVP3358-17-68 05:34:00 151.0[facility] MouurzeKVZHUPHTPT2443-74-73 03:26:00>=1000 mg/dL *ABN*(02/10/2011 22:26:00) ??[facility] UuwqnbkLPLROLWEDV0121-00-90 03:26:00 Negative mg/dL *NA*(02/10/2011 22:26:00) ??[facility] HospitalKoyvkpjSGDPRNYKWF1920-69-54 03:26:00 Test Item Value Reference Range Interpretation Comments UA pH (test code = UA pH) 6.5 1 5.0-8.0 N [facility] HospitalJjqriyyRBHDBAXXYO2329-50-03 03:26:00Negative mg/dL (02/10/2011 22:26:00) ??[facility] HospitalLfcndpdACBBQGLKEX0573-68-39 03:26:00Negative (02/10/2011 22:26:00) ??[facility] HospitalNqbtlquSIMJCWPSOI6496-28-92 03:26:00Negative (02/10/2011 22:26:00) [facility]XrxfmkqOFUABQRFSB3765-18-95 03:26[facility]000.2[facility] FOPMKBAHIS4392-10-16 03:26:00Negative (02/10/2011 22:26:00) ??[facility] DVQHKCKJZR7791-81-99 03:26:00Negative *NA*(02/10/2011 22:26:00) ??[facility] HospitalDigrxijWOMTMFTHDI5129-75-49 03:26:00Clear (02/10/2011 22:26:00) ??[facility] HospitalHewzdknSZNWYUMEGR2102-70-71 03:26:00 Test Item Value Reference Range Interpretation Comments UA Spec Grav (test code = UA Spec 1.01 1 N Grav) [facility] HospitalOowzfnnHUURJHJRWO9185-46-01 03:26:00Yellow *NA*(02/10/2011 22:26:00) ?? [facility] HospitalNphfhoiOHOBVEQDZP2486-15-49 03:26:000-2 /HPF (02/10/2011 22:26:00) ?? [facility] HospitalPhrvqwyEHOWUUMUZZ0241-41-56 03:26:006-10 /HPF *ABN*(02/10/2011 22:26:00) [facility]JdreuzuEPOFHMPBSN9131-79-74 03:26:00Few /LPF (02/10/2011 22:26:00) ??[facility] HospitalDdphtirFFMJDSKNLZ9646-06-15 03:26:00Few /HPF (02/10/2011 22:26:00) ??[facility] YfwvjmwCXNJBNBMQZ0683-04-40 03:26:00Occasional /HPF *ABN*(02/10/2011 22:26:00) ??[facility] KxycjxxKOTSTGERST9538-43-92 03:26:00 Performed (02/10/2011 22:26:00) ??[facility] EdxnydzIZABRLBAI2942-03-02 03:03:00 Negative *NA*(02/10/2011 22:03:00) ??[facility] LcybmcvRCVGKDKTU9291-24-97 03:03:00<0.5[facility] LgwmyniGQWAAFZBT9571-33-38 03:03:00<0.02[facility] ZzqnslgIAVJTMQXA5951-30-42 03:03:007.0[facility] OigksofKASKMQKVG8593-35-63 03:03:004.0[facility] GammzmwICNMJBMOG0075-50-69 03:03:007.5[facility] HVBMQWLWC5255-64-13 03:03:00 Test Item Value Reference Range Interpretation Comments A/G Ratio (test code = A/G Ratio) 1.1 1 0.7-1.6 N [facility] HtrsfuhMCCDULIKQ2020-75-28 03:03:003.5[facility] HermannCHEMISTRY 2011-02-11 03:03:0014.0[facility] VoaoosvIOCWXNYYY3126-27-13 03:03:000.3[facility] OxdamviBOPNPQSAU1027-74-43 03:03:0069.0[facility] GviyojqVTTWCINCC3621-19-96 03:03:0022.0[facility] WtxgtcgTQPONXMWD1443-55-40 03:03:00 Test Item Value Reference Range Interpretation Comments B/C Ratio (test code = B/C Ratio) 20.0 1 6-25 N [facility] DchdwsyWDTTGAOMX8697-98-62 03:03:0096.0[facility] HermannCHEMISTRY 2011-02-11 03:03:008.7[facility] VkltpzxOWBZMVDKM1466-69-11 03:03:0017.3[facility] QinqqtvUWUCRPVDU9610-54-82 03:03:38730.0[facility] LwixqctLSCPLRVTN6364-12-05 03:03:05268.0[facility] CwhydhqVGEAGFBSD6825-99-10 03:03:000.6[facility] HUFVPUJKT9707-08-20 03:03:0012.0[facility] AzzntfxTHGUJTPGI6450-66-12 03:03:004.3 [facility] YisaqptHDAFRJXNB8710-18-16 03:03:00Negative (02/10/2011 22:03:00) ?? [facility] PfahuyjEXYAEJCYEW7860-57-76 03:03:003.9[facility]annHEMATOLOGY 2011-02-11 03:03:002.0[facility] PgughvhTIXFQVJHYI5250-26-79 03:03:000.5[facility] BbfcuayDSMVQDRVOP7637-77-60 03:03:000.4[facility] UrptqmbHXCOYLUNBM1086-74-07 03:03:000.1[facility] ZwouyuxGGDHAGDTST9507-65-36 03:03:0060.9[facility] [place] DTEBRMMWGT8458-11-77 03:03:0031.7[facility] KatcghdQCPFCGKGDO4671-84-94 03:03:00 1.2[facility] FmprpvkESWMKISQPB4611-87-11 03:03:005.7[facility]annHEMATOLOGY 2011-02-11 03:03:000.0[facility] RhngyfkNPPSBWILFW0679-40-62 03:03:00 Test Item Value Reference Range Interpretation Comments PT (test code = PT) 13.9 s 12.0-14.7 N [facility] JzudnwyYJNVWKMIVI0018-30-46 03:03:00 Test Item Value Reference Range Interpretation Comments PTT (test code = PTT) 28.4 s 22.9-35.8 N [facility] PqqsxiwYOKLUZWCQD8025-96-77 03:03:00 Test Item Value Reference Range Interpretation Comments INR (test code = INR) 1.07 1 0.85-1.17 N [facility] RkosxppRKTRUVSMTT5853-79-35 03:03:0033.7[facility]annHEMATOLOGY 2011-02-11 03:03:0014.3[facility] KcdytucIMVZIZSRYL2409-87-72 03:03:90537.0 [facility] AaiockiQWDUCDDGPP1306-59-02 03:03:007.9[facility]annHEMATOLOGY 2011-02-11 03:03:0085.9[facility] KxkzgyzTMFXAPWHJE0697-50-92 03:03:004.43[facility] KytxqtcIRBZWSDUGP2445-48-75 03:03:0038.1[facility] WyijyfuWGXECOYLTI8261-89-85 03:03:0012.8[facility] YwfjdyzNZMMZRSPQE9073-92-30 03:03:00 Test Item Value Reference Range Interpretation Comments MCH (test code = MCH) 28.9 pg 27.0-31.0 N [facility] CviyrktFVWMDMYPFH1615-66-77 03:03:006.5[facility]annHEMATOLOGY 2011-02-11 03:03:001.1[facility] HermannBEDSIDE GLUCOSE ULCQPQR5538-44-23 16:39:00 175.0[facility]annBEDSIDE GLUCOSE DRIWGVW1683-54-56 12:16:0088.0[facility]annBEDSIDE GLUCOSE EJRMMOY6425-68-49 11:27:0070.0[facility] HermannCHEMISTRY 2011-01-15 10:45:00<0.6[facility] DgqcgdbLVBWFCHJY8989-26-23 10:45:00<0.5 [facility] NomyeztRILABDKXW7543-86-54 10:45:00<0.02[facility] HermannCHEMISTRY 2011-01-15 10:45:0088.0[facility] ZabcjxpGREUJVFDA1691-51-55 10:45:000.6[facility] MjdipwmXHOPJHWGU9806-69-15 10:45:003.4[facility] YcxtusuHBKHGINXK5400-62-26 10:45:40724.0[facility] WgbjiydSASNSIDGG0446-43-29 10:45:0013.0[facility] XBFWVOAJJ5791-75-49 10:45:0025.0[facility] PrrrtwgXEVTUTVXD5722-81-03 10:45:008.0 [facility] YeknaxuTGWOSSLWP5739-59-49 10:45:0018.4[facility] HermannCHEMISTRY 2011-01-15 10:45:52099.0[facility] KatclrbHPNHEAZLX0699-68-83 10:45:88963.0 [facility] YtjtitcAQKHYEOAH7146-42-23 10:45:0096.0[facility] HermannCHEMISTRY 2011-01-15 10:45:00 Test Item Value Reference Range Interpretation Comments CHD Risk (test code = CHD Risk) 3.8 1 3.90-5.80 L [facility] StqzpmoVBVGCSJPP0804-25-51 10:45:0045.0[facility] HermannCHEMISTRY 2011-01-15 10:45:09276.0[facility] BfupyuvRDOMGDVTO7614-73-54 10:45:92444.0 [facility] CberzwjTAPTIXJUE8541-92-86 01:43:00<0.5[facility] HermannCHEMISTRY 2011-01-15 01:43:00<0.6[facility] RpoucnjUWIGQNMAU1962-64-37 01:43:0083.0 [facility] KfytmdtNPQQELEQQ2683-04-12 01:43:00<0.02[facility] HermannCHEMISTRY 2011-01-14 21:36:00Negative (01/14/2011 16:36:00) ??[facility]annCHEMISTRY 2011-01-14 20:36:00<0.6[facility] CvjyfybDSQCWUJWI9559-41-48 20:36:0013.0 [facility] UaciousUUCWXECHN4537-14-48 20:36:00<3.0[facility] HermannCHEMISTRY 2011-01-14 20:36:000.5[facility] PlswmrhMUWIKOOFY6798-88-17 20:36:003.8[facility] SflhgbmZCMMBNNGY2692-39-98 20:36:0017.0[facility] WyqzlfmWZRLMUVQK6296-02-91 20:36:0071.0[facility] ZxtkiqySVFXKMJLA4698-81-94 20:36:003.8[facility] YHFMEMNFB9807-94-90 20:36:02622.0[facility] WnmyajtGXOCNBZSA5833-94-74 20:36:00 22.0[facility] LricjtvRNEJAXZCE1599-54-71 20:36:0014.8[facility] HermannCHEMISTRY 2011-01-14 20:36:008.6[facility] MykfyrzFFUXHEWET6028-38-39 20:36:87521.0[facility] NureftkICDAEKSFV5709-05-08 20:36:003.6[facility] RqigbnlLQARWNNUI5586-23-97 20:36:00 Test Item Value Reference Range Interpretation Comments A/G Ratio (test code = A/G Ratio) 1.1 1 0.7-1.6 N [facility] GxoxjdiLUFTFNHII8283-36-99 20:36:00 Test Item Value Reference Range Interpretation Comments B/C Ratio (test code = B/C Ratio) 11.0 1 6-25 N [facility] ExepyjmAIBMJTZHJ3437-93-58 20:36:007.4[facility] HermannCHEMISTRY 2011-01-14 20:36:15783.0[facility] LumcfrhTRDAXZALT6061-89-62 20:36:009.0[facility] EbjksyuKXHLOSZIN8457-17-24 20:36:000.8[facility] AatftsdBPBWJVQVO2798-75-98 20:36:00<0.02[facility] IetsnopEJIKQJRUL2941-50-57 20:36:00<0.5[facility] PjpefceHSFIKUBLN1261-24-08 20:36:0078.0[facility] UmffxvsEFKHIGMDOH5945-16-61 20:36:000.3[facility] SdngvciCDUDKDQLZO7625-74-24 20:36:001.7[facility] AANRESBGIG5611-82-45 20:36:003.5[facility] CzgusglMYTMZSACMA8434-48-74 20:36:000.9 [facility] VcgdxejUTRHFVURPI9009-85-25 20:36:000.9[facility]annHEMATOLOGY 2011-01-14 20:36:000.0[facility] KdfjeqbDQHNQLEKJU5565-68-03 20:36:000.1[facility] ZlmnxyvTMJKUNOBDV8527-99-31 20:36:0030.7[facility] JtkhosyPASCQFYHRC5097-76-83 20:36:0063.0[facility] LjyvwhgQZVRYIXIXC6921-20-87 20:36:004.5[facility] [place] GSFAMLJBGM6197-32-74 20:36:0014.6[facility] BjxfkygEAXQGJFQWI2927-75-27 20:36:00 34.0[facility] RtrlxruIVZVXCPQHZ3959-78-92 20:36:008.0[facility]annHEMATOLOGY 2011-01-14 20:36:07814.0[facility] SczvwbaCNZMVMOKWA4650-54-10 20:36:00 Test Item Value Reference Range Interpretation Comments MCH (test code = MCH) 28.8 pg 27.0-31.0 N [facility] HospitalToftjsuBFASUBTNLB3879-26-96 20:36:0013.2[facility]annHEMATOLOGY 2011-01-14 20:36:004.6[facility] NxqlfwdZEKQYZIBKC8490-47-67 20:36:0038.9[facility] TvtliysBORSXDWXUV4182-47-95 20:36:0084.6[facility] YrzalajSOWCLERRWL5638-02-72 20:36:005.6[facility] EnohjwlQBXXXLAEDZ4201-63-08 20:36:00 Test Item Value Reference Range Interpretation Comments PT (test code = PT) 13.6 s 12.0-14.7 N [facility] HospitalAlangnuNMNVZFAUMQ3554-82-09 20:36:00 Test Item Value Reference Range Interpretation Comments PTT (test code = PTT) 30.2 s 22.9-35.8 N [facility] HospitalKoktlhgAZUCFAJUAB2324-08-16 20:36:00 Test Item Value Reference Range Interpretation Comments INR (test code = INR) 1.04 1 0.85-1.17 N [facility] HospitalAudywzsEAGEVLUHAZ8481-68-34 20:36:001.5[facility] [place]
--- NOTE | 2020-09-03 19:06 | RAD REPORT ---
EXAM DESCRIPTION: Marco A Single View09/03/2020 6:46 pm CLINICAL HISTORY: Shortness of breath COMPARISON: May 2020 FINDINGS: Nodular opacities which overlie the lung bases are consistent with nipple shadows. The lungs appear clear of acute infiltrate. The heart is normal size. PICC line with its tip in the d istal SVC IMPRESSION: No acute abnormalities displayed
[2020-09-03 19:11] LABS: Absolute Lymphocytes (CBC) 1.9 K/uL (0.7-4.9); Basophils % 0.8 % (0-1.3); Hematocrit 27.6 % (36.0-45.0); Lymphocytes % 20.1 % (15.3-44.8); MPV 7.4 fL (7.6-11.3); RBC Red Blood Cell Count 3.33 M/uL (3.86-4.86)
[2020-09-03 19:12] LABS: Protime INR 1.14
[2020-09-03] MEDS ORDERED: NA CHLORIDE 0.9% 1,000 ML ONE (19:14)
[2020-09-03] MEDS ORDERED: FENTANYL CITR 100 MCG/2 ML ONE (19:14)
[2020-09-03 19:25] LABS: ALT/SGPT 17 U/L (12-78); AST/SGOT 10 U/L (15-37); Albumin 3.4 g/dL (3.4-5.0); Alkaline Phosphatase 92 U/L (45-117); BUN Blood Urea Nitrogen 14 mg/dL (7-18); Bicarbonate 30 mmol/L (21-32); Bilirubin Direct < 0.1 mg/dL (0-0.2); Bilirubin Total 0.4 mg/dL (0.2-1.0); Glucose Level 194 mg/dL (74-106); Magnesium 1.7 mg/dL (1.8-2.4); Potassium 3.3 mmol/L (3.5-5.1); Protein, Total 7.3 g/dL (6.4-8.2); Sodium Level 141 mmol/L (136-145); Troponin (Emerg Dept Use Only) < 0.02 ng/mL (0.0-0.045)
--- NOTE | 2020-09-03 20:34 | RAD REPORT ---
EXAM DESCRIPTION: CT - Abdomen Pelvis W Contrast - 09/03/2020 8:08 pm CLINICAL HISTORY: Abdominal pain COMPARISON: none. TECHNIQUE: Computed axial tomography of the abdomen pelvis was obtained. 100 cc Isovue-300 was admin istered intravenously. Oral contrast was not requested which limits evaluation of bowel. All CT scans are performed using dose optimization technique as appropriate and may include automated exposure control or mA/KV adjustment according to patient size. FINDINGS: The liver, spleen, pancreas, adrenal and kidneys appear unremarkable. Transverse colon has normal caliber on the current examination. No evidence of diverticulitis. Air within the bladder wall and lumen has resolved Cholecystectomy. Mild prominence of the biliary tree appears less prominent than the prior exam. IMPRESSION: No acute abnormality is displayed.
[2020-09-03] MEDS ORDERED: MAGNESIUM SULFATE 1 gm IVPB 1 GM/100 ML BAG IV ONE (20:49)
[2020-09-03] MEDS ORDERED: POTASSIUM 25 MEQ EFFERV TAB ONE (21:01)
[2020-09-03] MEDS ORDERED: METOPROLOL TAR 25 MG TAB ONE (21:23)
--- NOTE | 2020-09-03 22:22 | EDPHYS ---
Physician Documentation [facility] Name: Melissa De Oliveira Age: 55 yrs Sex: Female : 1965 Arrival Date: 09/03/2020 Time: 17:37 Bed 4 Private MD: ED Physician Carina Adam HPI: 09/03 18:07 This 55 yrs old Female presents to ER via Wheelchair with complaints of cp Dizziness, Blurred Vision. 18:07 The patient presents with dizziness, feeling faint, generalized weakness. Onset: The cp symptoms/episode began/occurred this morning. 18:07 Associated signs and symptoms: Pertinent positives: abdominal pain, lightheaded, cp Pertinent negatives: chest pain, focal weakness, syncope. Patient's baseline: Neuro: alert and fully oriented, Motor: no deficits, Ambulation: walks without assistance, Speech: normal. 18:07 Patient reports recent discharge from [facility] after hospitalization for "colon infection". cp Historical: - Allergies: 17:48 Codeine; ae4 17:48 Ritalin; ae4 17:48 Tramadol HCl; ae4 - Home Meds: 17:48 gabapentin Oral [Active]; Levemir 100 unit/mL subcutaneous tab [Active]; ae4 - PMHx: 17:48 Diabetes - IDDM; neuropathy; ae4 - PSHx: 17:48 Cholecystectomy; Appendectomy; ; ae4 - Immunization history:: Adult Immunizations up to date, Client reports having NOT received the Covid vaccine. Last tetanus immunization: < 10 years ago. - Social history:: Smoking status: Patient denies any tobacco usage or history of. ROS: 18:10 Constitutional: Positive for poor PO intake, Negative for body aches, chills, fever. cp 18:10 Eyes: Negative for injury, pain, redness, and discharge. cp 18:10 Cardiovascular: Negative for chest pain, edema, palpitations. cp 18:10 Respiratory: Negative for cough, shortness of breath, wheezing. cp 18:10 Abdomen/GI: Positive for abdominal pain, nausea, Negative for diarrhea, constipation, black/tarry stool, rectal bleeding. 18:10 Neuro: Positive for dizziness, weakness, Negative for altered mental status, headache, syncope. 18:10 All other systems are negative. Exam: 18:15 Constitutional: The patient appears in no acute distress, alert, awake, cp non-diaphoretic, non-toxic, well developed, frail. 18:15 Head/Face: Normocephalic, atraumatic. cp 18:15 Eyes: Periorbital structures: appear normal, Pupils: equal, round, and reactive to light and accomodation, Extraocular movements: intact throughout, Conjunctiva: normal, no exudate, no injection, Sclera: no appreciated abnormality, Lids and lashes: appear normal, bilaterally. 18:15 ENT: External ear(s): are unremarkable, Nose: is normal, Mouth: Lips: dry, Oral mucosa: moist, Posterior pharynx: Airway: no evidence of obstruction, patent. 18:15 Chest/axilla: Inspection: normal, Palpation: is normal, no crepitus, no tenderness. 18:15 Cardiovascular: Rate: tachycardic, Rhythm: regular, Edema: is not appreciated, JVD: is not appreciated. 18:15 Respiratory: the patient does not display signs of respiratory distress, Respirations: normal, no use of accessory muscles, no retractions, labored breathing, is not present, Breath sounds: are clear throughout, no decreased breath sounds, no stridor, no wheezing. 18:15 Abdomen/GI: Inspection: abdomen appears normal, Bowel sounds: active, all quadrants, Palpation: soft, in all quadrants, moderate abdominal tenderness, in the left upper quadrant and left lower quadrant, rebound tenderness, is not appreciated, voluntary guarding, is elicited in the left upper quadrant and left lower quadrant. 18:15 Neuro: Orientation: to person, place \\T\\ time. Mentation: is normal. 19:45 ECG was reviewed by the Attending Physician. cp Vital Signs: 17:40 BP 81 / 54; Pulse 112; Resp 16; Temp 97(TE); Pulse Ox 98% on R/A; Weight 43.09 kg (R); ae4 Height 5 ft. 4 in. (162.56 cm); Pain 7/10; 17:55 BP 99 / 64; Pulse 113; Resp 18; Pulse Ox 99% on R/A; Pain 0/10; ld1 19:07 BP 136 / 76; Pulse 102; Resp 16; Pulse Ox 99% on R/A; Pain 8/10; hb 20:30 BP 150 / 81; Pulse 103; Resp 18; Pulse Ox 100% on R/A; jb4 21:30 BP 139 / 81; Pulse 94; Resp 16; Pulse Ox 100% on R/A; jb4 17:40 Body Mass Index 16.31 (43.09 kg, 162.56 cm) ae4 MDM: 18:08 Patient medically screened. 22:20 Data reviewed: vital signs, nurses notes, lab test result(s), EKG, radiologic studies, cp CT scan, plain films. 22:20 Test interpretation: by ED physician or midlevel provider: ECG, plain radiologic cp studies. Counseling: I had a detailed discussion with the patient and/or guardian regarding: the historical points, exam findings, and any diagnostic results supporting the discharge/admit diagnosis, lab results, radiology results, to return to the emergency department if symptoms worsen or persist or if there are any questions or concerns that arise at home. 09/03 18:07 Order name: Basic Metabolic Panel 09/03 18:07 Order name: CBC with Diff 09/03 18:07 Order name: LFT's 09/03 18:07 Order name: Magnesium cp 09/03 18:07 Order name: PT-INR 09/03 18:07 Order name: Troponin (emerg Dept Use Only); Complete Time: 19:30 cp 09/03 18:07 Order name: Lactate; Complete Time: 19:30 09/03 18:07 Order name: Blood Culture Adult (2) 09/03 18:08 Order name: Basic Metabolic Panel; Complete Time: 19:30 EDMS 09/03 19:30 Interpretation: Normal except: K 3.3; GLUC 194; GFR 64. 09/03 18:08 Order name: CBC with Automated Diff; Complete Time: 19:30 EDMS 09/03 19:30 Interpretation: Normal except: WBC 9.60; RBC 3.33; HGB 9.5; HCT 27.6; RDW 16.3; MPV 7.4. 09/03 18:08 Order name: Liver (Hepatic) Function; Complete Time: 19:30 EDMS 09/03 19:32 Interpretation: Normal except: AST 10; GLOB 3.9; A/G 0.9. cp 09/03 18:08 Order name: Magnesium; Complete Time: 19:30 EDMS 09/03 19:46 Interpretation: Abnormal: MG 1.7. cp 09/03 18:07 Order name: XRAY Chest (1 view); Complete Time: 19:30 cp 09/03 18:07 Order name: EKG; Complete Time: 18:08 cp 09/03 18:07 Order name: Cardiac monitoring; Complete Time: 18:53 cp 09/03 18:07 Order name: EKG - Nurse/Tech; Complete Time: 19:44 cp 09/03 18:07 Order name: IV Saline Lock; Complete Time: 18:53 cp 09/03 18:07 Order name: Labs collected and sent; Complete Time: 18:53 cp 09/03 18:07 Order name: O2 Per Protocol; Complete Time: 18:53 cp 09/03 18:07 Order name: O2 Sat Monitoring; Complete Time: 19:29 cp 09/03 18:08 Order name: Protime (+INR); Complete Time: 19:30 EDMS 09/03 19:47 Interpretation: Abnormal: PT 13.1. cp 09/03 19:31 Order name: CT Abd/Pelvis - IV Contrast Only; Complete Time: 20:35 cp 09/03 20:36 Interpretation: Report reviewed. cp 09/03 18:08 Order name: Accucheck Blood Glucose; Complete Time: 19:32 cp 09/03 18:20 Order name: NPO; Complete Time: 19:06 cp 09/03 20:37 Order name: PO challenge; Complete Time: 20:51 cp EC:45 Rate is 106 beats/min. Rhythm is regular. [place] interval is normal. QRS interval is cp normal. QT interval is normal. Interpreted by me. Reviewed by me. Administered Medications: 19:00 Drug: NS 0.9% 500 ml Route: IV; Rate: bolus; Site: PICC; hb 19:00 Drug: NS 0.9% 500 ml Route: IV; Rate: 100 ml/hr; Site: right upper arm; jb4 19:06 Drug: fentaNYL (PF) 25 mcg Route: IVP; Site: PICC; hb 19:30 Follow up: Response: No adverse reaction; Marked relief of symptoms; Pain is decreased; jb4 RASS: Alert and Calm (0) 20:33 Drug: Magnesium Sulfate 1 grams Route: IVPB; Infused Over: 1 hrs; Site: PICC; jb4 21:33 Follow up: Response: No adverse reaction; IV Status: Completed infusion jb4 20:51 Drug: Potassium Effervescent Tablet 50 mEq Route: PO; jb4 21:00 Follow up: Response: No adverse reaction jb4 21:06 Drug: Metoprolol 25 mg Route: PO; jb4 22:38 Follow up: Response: No adverse reaction; Marked relief of symptoms jb4 Disposition: 09/03/20 22:21 Discharged to Home. Impression: Unspecified abdominal pain, Nausea, Dizziness and giddiness. - Condition is Stable. - Discharge Instructions: Abdominal Pain, Adult, Dehydration, Adult, Dizziness, Nausea, Adult. - Prescriptions for Zofran 4 mg Oral Tablet - take 1 tablet by ORAL route every 12 hours As needed; 20 tablet. - Medication Reconciliation Form, Thank You Letter, Antibiotic Education, Prescription Opioid Use form. - Follow up: Private Physician; When: 1 - 2 days; Reason: Recheck today's complaints. - Problem is new. - Symptoms have improved. Addendum: 09/05/2020 19:18 Co-signature as Attending Physician, Carina Adam MD. m a2 Signatures: Dispatcher [employer] EDMS Yogesh Mcclain PA PA cp Mercedes Moran RN RN hb Dk Molina RN RN jb4 Carina Adam MD MD ma2 Noe Marcum RN RN ae4 Corrections: (The following items were deleted from the chart) 09/03 22:21 22:21 09/03/2020 22:21 Discharged to Home. Impression: Dehydration; Unspecified cp abdominal pain; Nausea. Condition is Stable. Forms are Medication Reconciliation Form, Thank You Letter, Antibiotic Education, Prescription Opioid Use. Follow up: Private Physician; When: 1 - 2 days; Reason: Recheck today's complaints. Problem is new. Symptoms have improved. cp 22:39 22:21 09/03/2020 22:21 Discharged to Home. Impression: Unspecified abdominal pain; jb4 Nausea; Dizziness and giddiness. Condition is Stable. Forms are Medication Reconciliation Form, Thank You Letter, Antibiotic Education, Prescription Opioid Use. Follow up: Private Physician; When: 1 - 2 days; Reason: Recheck today's complaints. Problem is new. Symptoms have improved. cp
--- NOTE | 2020-09-03 22:22 | ER ---
Nurse's Notes [facility] Name: Melissa De Oliveira Age: 55 yrs Sex: Female : 1965 Arrival Date: 09/03/2020 Time: 17:37 Bed 4 Private MD: Diagnosis: Unspecified abdominal pain;Nausea;Dizziness and giddiness Presentation: 09/03 17:43 Chief complaint: Patient states: Patient states she woke up feeling dizzy at about ae4 10:30 AM. States she is undergoing treatment for "infected intestines" Patient had a PICC placed to tight upper arm on the previous Friday.Pt also c/o stomach pain. Coronavirus screen: Client denies travel out of the [place] in the last 14 days. At this time, the client does not indicate any symptoms associated with coronavirus-19. Ebola Screen: Patient denies exposure to infectious person. Patient denies travel to an Ebola-affected area in the 21 days before illness onset. No symptoms or risks identified at this time. Initial Sepsis Screen: Does the patient meet any 2 criteria? Systolic BP < 90 mmHg. HR > 90 bpm. Yes Does the patient have a suspected source of infection? Yes: Acute abdominal pain Other: "infected intestines". 17:43 Method Of Arrival: Wheelchair ae4 17:43 Acuity: DEYA 2 ae4 Triage Assessment: 17:54 General: Appears in no apparent distress. comfortable, slender, Behavior is calm, ae4 cooperative. Pain: Complains of pain in abdomen Pain currently is 7 out of 10 on a pain scale. Neuro: Level of Consciousness is awake, alert, obeys commands, Oriented to person, place, situation. Respiratory: Airway is patent Respiratory effort is even, unlabored, Respiratory pattern is regular, symmetrical. GI: Reports lower abdominal pain, upper abdominal pain. Derm: Skin is pale. Derm: Double lumen PICC noted to right upper arm. Surgical boot noted to left lower extremity. Pt states she fell and broke her foot. Historical: - Allergies: 17:48 Codeine; ae4 17:48 Ritalin; ae4 17:48 Tramadol HCl; ae4 - Home Meds: 17:48 gabapentin Oral [Active]; Levemir 100 unit/mL subcutaneous tab [Active]; ae4 - PMHx: 17:48 Diabetes - IDDM; neuropathy; ae4 - PSHx: 17:48 Cholecystectomy; Appendectomy; ; ae4 - Immunization history:: Adult Immunizations up to date, Client reports having NOT received the Covid vaccine. Last tetanus immunization: < 10 years ago. - Social history:: Smoking status: Patient denies any tobacco usage or history of. Screenin:55 Abuse screen: Denies threats or abuse. Denies injuries from another. Nutritional ld1 screening: No deficits noted. Tuberculosis screening: No symptoms or risk factors identified. Fall Risk None identified. Assessment: 17:55 General: Appears in no apparent distress. comfortable, Behavior is calm, cooperative, ld1 appropriate for age. Pain: Denies pain. Neuro: Level of Consciousness is awake, alert, obeys commands, Oriented to person, place, time, situation, Appropriate for age. Neuro: Reports blurred vision dizziness. Cardiovascular: Patient's skin is warm and dry. Respiratory: Airway is patent Respiratory effort is even, unlabored, Respiratory pattern is regular, symmetrical. GI: Abdomen is flat, non-distended. : No signs and/or symptoms were reported regarding the genitourinary system. EENT: Reports blurred vision. Derm: No signs and/or symptoms reported regarding the dermatologic system. Musculoskeletal: No signs and/or symptoms reported regarding the musculoskeletal system. 17:55 GI: Reports recently discharged for enteritis and will be receiving antibiotics. ld1 Musculoskeletal: Reports left leg broken, currently wearing a boot. 19:06 Reassessment: Pt c/o abdominal; pain 8/10. ANJALI Zuñiga notified, fentanyl administered as hb ordered. 20:00 Reassessment: Patient appears in no apparent distress at this time. Patient and/or jb4 family updated on plan of care and expected duration. Pain level reassessed. Patient is alert, oriented x 3, equal unlabored respirations, skin warm/dry/pink. 21:00 Reassessment: Patient appears in no apparent distress at this time. Patient and/or jb4 family updated on plan of care and expected duration. Pain level reassessed. Patient is alert, oriented x 3, equal unlabored respirations, skin warm/dry/pink. 22:00 Reassessment: Patient appears in no apparent distress at this time. Patient and/or jb4 family updated on plan of care and expected duration. Pain level reassessed. Patient is alert, oriented x 3, equal unlabored respirations, skin warm/dry/pink. Vital Signs: 17:40 BP 81 / 54; Pulse 112; Resp 16; Temp 97(TE); Pulse Ox 98% on R/A; Weight 43.09 kg (R); ae4 Height 5 ft. 4 in. (162.56 cm); Pain 7/10; 17:55 BP 99 / 64; Pulse 113; Resp 18; Pulse Ox 99% on R/A; Pain 0/10; ld1 19:07 BP 136 / 76; Pulse 102; Resp 16; Pulse Ox 99% on R/A; Pain 8/10; hb 20:30 BP 150 / 81; Pulse 103; Resp 18; Pulse Ox 100% on R/A; jb4 21:30 BP 139 / 81; Pulse 94; Resp 16; Pulse Ox 100% on R/A; jb4 17:40 Body Mass Index 16.31 (43.09 kg, 162.56 cm) ae4 ED Course: 17:37 Patient arrived in ED. mr 17:46 Triage completed. ae4 17:54 Yogesh Mcclain PA is PHCP. cp 17:54 Carina Adam MD is Attending Physician. cp 17:55 Julia Melendez, RN is Primary Nurse. ld1 17:55 Patient has correct armband on for positive identification. Bed in low position. Call ld1 light in reach. Side rails up X2. Pulse ox on. NIBP on. Door closed. Noise minimized. Warm blanket given. Pillow given. 17:55 Accessed PICC line. Clean \\T\\ dry. Dressing intact. ld1 18:46 XRAY Chest (1 view) In Process Unspecified. EDMS 20:08 CT Abd/Pelvis - IV Contrast Only In Process Unspecified. EDMS 21:02 Primary Nurse role handed off by Julia Melendez, RN tt3 21:05 Dk Molina, RN is Primary Nurse. jb4 22:38 No provider procedures requiring assistance completed. PICC remains in place. jb4 Administered Medications: 19:00 Drug: NS 0.9% 500 ml Route: IV; Rate: bolus; Site: PICC; hb 19:00 Drug: NS 0.9% 500 ml Route: IV; Rate: 100 ml/hr; Site: right upper arm; jb4 19:06 Drug: fentaNYL (PF) 25 mcg Route: IVP; Site: PICC; 19:30 Follow up: Response: No adverse reaction; Marked relief of symptoms; Pain is decreased; jb4 RASS: Alert and Calm (0) 20:33 Drug: Magnesium Sulfate 1 grams Route: IVPB; Infused Over: 1 hrs; Site: PICC; jb4 21:33 Follow up: Response: No adverse reaction; IV Status: Completed infusion jb4 20:51 Drug: Potassium Effervescent Tablet 50 mEq Route: PO; jb4 21:00 Follow up: Response: No adverse reaction jb4 21:06 Drug: Metoprolol 25 mg Route: PO; jb4 22:38 Follow up: Response: No adverse reaction; Marked relief of symptoms jb4 Outcome: 22:21 Discharge ordered by MD. cp 22:38 Discharged to home via wheelchair, with family. jb4 22:38 Condition: stable 22:38 Discharge instructions given to patient, Instructed on discharge instructions, follow up and referral plans. medication usage, Demonstrated understanding of instructions, follow-up care, medications, Prescriptions given X 1. 22:39 Patient left the ED. jb4 Signatures: Dispatcher [employer] EDMS ZafarSilvina mr Yogesh Mcclain PA PA cp Baxter, Heather, RN RN hb Bryson, James RN RN jb4 Noe Marucm RN RN ae4 Harry Conley tt3 Julia Melendez RN RN ld1
[2020-09-03 22:44] VITALS: TEMP 97
[2020-09-03 22:49] VITALS: O2SAT 100
[2020-09-03 22:51] VITALS: BP 139/81
== END 2020-09-03 22:39 | disposition home or self-care (01) ==
LOC: ER 17:33
DX: R10.9 Unspecified abdominal pain (principal); R11.0 Nausea; E11.40 Type 2 diabetes mellitus with diabetic neuropathy, unspecified; Z79.4 Long term (current) use of insulin; Z88.5 Allergy status to narcotic agent; Z88.6 Allergy status to analgesic agent; Z88.8 Allergy status to other drugs, medicaments and biological substances
CPT/HCPCS: 36415; 71045; 74177; 80048; 80076; 83605; 83735; 84484; 85025; 85610; 87040; 93005; 96365; 96375; 99284; J3010; J3475; J7030; Q9967

== ENCOUNTER 2020-09-06 14:27 | Inpatient (IN) | payer SELFPAY ==
--- OUTSIDE RECORDS SUMMARY | 2020-09-06 14:36 | XMS REPORT | Continuity of Care Document ---
:1965 Author Organization [facility] t Address [address] [place] [address] Care Team Providers Name Role Phone Sharpless [...] HURT 00:00: Jona TOES 00 Active 12/27/2016 [facility] [place] ABDOMINAL Diagnosis Active 2011-042012-02-17 Memoria PAIN 0-26 10:42:00 l 00:00: [place] ABDOMINAL 00 PAIN Active 02/07/2012 [facility] EGD Diagnosis Active 2011-042012-02-06 Mem oria 0-24 10:10:00 l EGD 06:00: [place] 00 Active 02/05/2012 [facility] BLOOD Diagnosis Active 2011-12-11 Mem oria SUGAR 8-16 11:15:00 l PROBLEM BLOOD 15:00: Jona SUGAR 00 PROBLEM Active 11/28/2011 [place] LEFT LOWER Diagnosis Active 2011-12-11 Memoria ABDOMINAL 7-12 10:48:00 l PAIN LEFT 08:00: [place] LOWER 00 ABDOMINAL PAIN Active 10/24/2011 [place] ABDOMINAL Diagnosis Active 2011-12-11 Memoria PAIN HIGH 2-08 11:09:00 l BLOOD 22:00: [place] SUGAR ABDOMINAL 00 PAIN HIGH BLOOD SUGAR Active 05/22/2011 [place] BLEEDING/ Diagnosis Active 2011-12-11 Memoria RT SIDE 1-24 11:06:00 l PAIN 08:00: Jona BLEEDING/ 00 RT SIDE PAIN Active 05/07/2011 [place] RIGHTABDOM Diagnosis Active 2011-04-19 Memoria INAL PAIN 1-06 20:37:00 l . AND 00:00: [place] BLOOD IN RIGHTABDOM 00 URINE INAL PAIN . AND BLOOD IN URINE Active 04/19/2011 [place] RIGHT Diagnosis Active 2011-12-20 Mem oria ABDOMINAL 1-06 13:03:00 l PAIN, RIGHT 00:00: Jona BLOOD IN ABDOMINAL 00 URINE PAIN, BLOOD IN URINE Active 04/19/2011 [place] LOWER ABD Diagnosis Active 2010-042011-12-11 Memoria PAIN/ HIGH 2-12 11:02:00 l SUGAR LOWER 00:00: Jona ABD PAIN/ 00 HIGH SUGAR Active 03/25/2011 [place] CHEST PAIN Diagnosis Active 2010-042011-02-11 Memoria AND 0-30 01:56:00 l TIGHTNESS CHEST 18:00: Jorge Luis n PAIN AND 00 TIGHTNESS Active 02/10/2011 [place] CHEST Diagnosis Active 2010-042011-02-15 Mem oria PAIN, 0-30 21:58:00 l DIZZINESS, CHEST 18:00: Eugenia nn HYPERGLYCE PAIN, 00 EB, UTI DIZZINESS, HYPERGLYCE EB, UTI Active 02/10/2011 [place] CHEST PAIN Diagnosis Active 2010-042011-01-15 Memoria 0-03 16:36:00 l CHEST 15:00: [place] PAIN 00 Active 01/14/2011 [place] RIGHT KNEE Diagnosis Active 2010-12-22 Memoria 1ST 3 TOES 9-10 13:04:00 l NUMB RIGHT 11:00: [place] KNEE 1ST 3 00 TOES NUMB Active 12/22/2010 [place] FACIAL Diagnosis Active 2010-12-22 Mem oria NECK 10-08 13:04:00 l CELLULITIS FACIAL 00:00: Herm ava NECK 00 CELLULITIS Active 10/08/2010 [place] FACIAL AND Diagnosis Active 2010-12-22 Memoria NECK PAIN 10-07 13:04:00 l FACIAL 06:00: Jona AND NECK 00 PAIN Active 10/07/2010 [place] SUGAR Diagnosis Active 2010-12-22 Mem oria HIGH,VAGIN 07-21 13:04:00 l AL SUGAR 00:00: [place] BLEEDING HIGH,VAGIN 00 AL BLEEDING Active 07/21/2010 [place] ABD PAIN Diagnosis Active 2010-12-22 M emoria 01-05 13:04:00 l ABD PAIN 00:00: Jorge Luis n 00 Active 01/05/2010 [facility] EAR PAIN Diagnosis Active 2010-12-22 M emoria 10-09 13:04:00 l EAR PAIN 19:00: Jorge Luis n 00 Active 10/09/2009 [place] UPPER Diagnosis Active 2010-12-22 Mem oria ABDOMINAL 09-20 13:04:00 l PAIN UPPER 14:00: [place] ABDOMINAL 00 PAIN Active 09/20/2009 [place] ABD PAIN, Diagnosis Active 2010-12-22 Memoria HIGH SUGAR 5-04 13:04:00 l ABD 00:00: [place] PAIN, HIGH 00 SUGAR Active 08/15/2009 [place] Abdominal Problem Active 2012-02-19 Me moria pain 09:23:16 l J[place] Abdominal pain Active Problem 02/19/2012 [facility] [place] Cellulitis Problem Active 2012-02-19 M emoria 09:23:16 l [place] Cellulitis Active Problem 02/19/2012 [facility] [place] Chest pain Problem Active 2012-02-19 M emoria 09:23:16 l Chest [place] pain Active Problem 02/19/2012 [facility] [place] Hyperglyce Problem Active 2012-02-19 M emoria eb 09:23:16 l [place] Hyperglyce eb Active Problem 02/19/2012 [facility] [place] UTI - Problem Active 2012-02-19 Memor ia Urinary 09:23:16 l tract UTI - [place] infection Urinary tract infection Active Problem 02/19/2012 [facility] [place] Diabetes Problem Active 2017-03-01 Mem oria mellitus 04:36:24 l (disorder) Diabetes He rmann mellitus (disorder) Active Problem 03/01/2017 [facility] Restless Problem Active 2017-03-01 Mem oria legs 04:36:24 l (disorder) Restless He rmann legs (disorder) Active Problem 03/01/2017 [facility] Abdominal Problem Active 2017-03-01 Me moria pain 04:36:24 l (finding) Jona Abdominal pain (finding) Active Problem 03/01/2017 [facility] Chest pain Problem Active 2017-03-01 M emoria (finding) 04:36:24 l Chest [place] pain (finding) Active Problem 03/01/2017 [facility] Hyperglyce Problem Active 2017-03-01 M emoria eb 04:36:24 l (disorder) Jorge Luis n Hyperglyce eb (disorder) Active Problem 03/01/2017 [facility] Urinary Problem Active 2017-03-01 Nirmal feliz tract 04:36:24 l infectious Urinary Her pugh disease tract (disorder) infectious disease (disorder) Active Problem 03/01/2017 [facility] CHEST PAIN Diagnosis Active 2010-12-22 Memoria NOS 13:04:00 l CHEST [place] PAIN NOS Active [place] CELLULITIS Diagnosis Active 2010-12-22 Memoria NOS 13:04:00 l [place] CELLULITIS NOS Active [place] History of Past Illness Condition Condition Condition Status Onset Resolution Last Treating Co mments Source Name Details Category Date Date Treatment Clinician Date Hyperglyce Problem 2016-042017-03-01 2017-03-01 Memoria eb, - 04:36:24 04:36:24 l unspecifie 06:00: Jorge Luis n d Hyperglyce 00 eb, unspecifie d 02/25/2017 03/01/2017 [facility] Fever, Problem 2016-2017-03-01 2017-03-01 M emoria unspecifie 04-27 04:36:24 04:36:24 l d Fever, 06:00: Jona unspecifie 00 d 02/25/2017 03/01/2017 [facility] Radiculopa Problem 2016-2017-02-28 2017-02-28 Memoria thy, 1-14 05:26:25 05:26:25 l cervical 06:00: Jona region Radiculopa 00 thy, cervical region 02/25/2017 02/28/2017 [facility] Displaced Problem 2016-2016-12-30 2016-12-30 Memoria unspecifie -15 05:13:20 05:13:20 l d fracture 05:00: Jorge Luis n of right Displaced 00 lesser unspecifie toe(s), d fracture initial of right encounter lesser for closed toe(s), fracture initial encounter for closed fracture 12/30/2016 [facility] Allergies, Adverse Reactions, Alerts Allergy Allergy Status Severity Reaction(s) Onset Inactive Treating Comm ents Source Name Type Date Date Clinician Methylph Propensi [facility] - adverse [facility]: [facility] reaction [facility] Center s Ritalin Ritalin Active Emmanuelle Tenorio Social History Social Habit Start Date Stop Date Quantity Comments Source Sex Assigned At [facility] Tobacco use and 2017-10-06 2017-10-06 Never used [facility] - exposure 00:00:00 00:00:00 [facility] Alcohol intake 2017-10-06 2017-10-06 [facility] 00:00:00 non-drinker of Medical nter alcohol (finding) Social History 2017-02-03 2017-02-03 [facility] hermila 15:24:44 15:24:44 Smoking Status Start Date Stop Date Source [facility] sm[facility] Medications Ordered Filled Start Stop Current Ordering Indication Dosage Frequency Signature Comments Components Source Medication Medication Date Date Medication? Clinician (SIG) Name Name rOPINIRole Yes 1mg [id number] Take [address] [facility] (REQUIP) 1 3-26 [id number] by mouth 3 [facility] - MG tablet 12:00: 3D (three) Medic al 28 times Center daily. pregabalin Yes 50mg Q.[id number] Take [address] [facility] (LYRICA) 50 3-26 [id number] by mouth 3 [facility] - MG capsule 12:00: 3D (three) Medi steven 28 times Center daily. GI cocktail 2016-04 No Notes: Nirmal feliz 1-15 G.I. l 05:06: Cocktail = [place] 00 antacid with simethicon e 22.5 mL - lidocaine viscous 7.5 mL Zofran 2016-04 No Notes: Memoria 1-15 (Same as: l 04:41: Zofran) [place] 00 MEDICATION WASTE Product Size: 4 mg Product Wasted: ___ mg Zofran 2016-04 No Notes: Memoria 1-15 (Same as: l 02:34: Zofran) [place] 00 MEDICATION WASTE Product Size: 4 mg [...] Weight 49.545 kg, Start date: 02/25/17 20:22:00 MOTOR RACER, Stop date: 02/25/17 20:22:00 MOTOR RACER ibuprofen 2016-04 Yes 800 mg = 1 Me moria 800 mg oral 1-14 tab, PO, l tablet 07:20: Q8H, PRN [place] 00 Pain, Take with food, X 5 [...] day, # 6 tab, 0 Refill(s), Pharmacy: [id number] Humalog 100 2016-04 Yes 4 unit, Mem oria units/mL 0-15 SUB-Q, l 14:48: TID-Before 00 Meals, hold insulin injection if your blood sugar is less than 140 mg/dL., # 10 mL, 0 Refill(s), Pharmacy: [id number] pantoprazol 2016-04 Yes 40 mg = 1 M emoria e 40 MG 0-15 tab, PO, l Enteric 14:48: Daily, # Jorge Luis n Coated 00 30 tab, 0 Tablet Refill(s), [Protonix] Pharmacy: [id number] Calcium 2016-04 Yes 500 mg = 1 Nirmal feliz Carbonate 0-15 tab, PO, l 500 MG 14:48: TID, # 6 [place] Chewable 00 tab, 0 Tablet Refill(s), Pharmacy: [id number] Insulin 2016-04 Yes 15 unit, Memori a Glargine 0-15 SUB-Q, l 100 UNT/ML 14:48: Daily, # Her pugh Injectable 00 10 mL, 0 Solution Refill(s), [Lantus] Pharmacy: [id number] Calcium 2016-04 No Notes: Memoria [...] Memoria 0-15 (Same as: l 02:00: Lyrica) [place] 00 Calcium 2016-04 No Notes: Memoria Carbonate 0-14 (Same As: l 22:40: Tums) [place] Calcium Carbonate 500 mg = 200 mg elemental calcium Dose = mg calcium carbonate ( mg elemental calcium) Protonix 2016-04 No Notes: Memoria 0-14 Tablet l 22:00: should not [place] 00 be chewed or crushed. (Same as: Protonix) Magnesium 2016-04 No Notes: Memori a Oxide 0-14 (Same as: l 22:00: Mag-Ox [place] 00 400) Magnesium oxide [id number] g elemental magnesium Dose=____m g magnesium oxide (___mg elemental magnesium) Ketorolac 2016-04 No 4 days Memor ia 0-14 l 17:02: MEDICATION [place] 00 WASTE Product Size: 30 mg Product Wasted: ___ mg Docusate 2016-04 No Notes: Memoria 0-14 (Same as: l 14:00: Colace) [place] 00 (Do Not Crush) Insulin 2016-04 No [...] Lispro 0-14 units) l 09:50: WASTE: F/P [place] 00 - Black; E - Municipal Trash Bin Stable for 28 days at room temperatur e. Expires in days from ____Date Ceftriaxone 2016-04 No Notes: Nirmal feliz 0-14 (Same As: l 07:00: Rocephin). [place] 00 Use with 100 mL NS and infuse over 30 min MEDICATION WASTE Product Size: 1000 mg Product Wasted: ___ mg Glucagon 2016-04 No 1 mg, Memoria 0-14 Route: IM, l 06:35: Drug form: [place] 00 PDR/INJ, PRN, Dosing Weight 51.449, kg, PRN Blood Glucose Results, Start date: 01/25/17 1:35:00 CDT, Duration: 30 day, Stop date: 02/24/17 0:34:00 MOTOR RACER Insulin 2016-04 No 60 Memoria Lispro 0-14 units) l 06:35: WASTE: F/P [place] 00 - Black; E - Municipal Trash Bin Stable for 28 days at room temperatur e. Expires in days from ____Date Dextrose 2016-04 No 25 gm, 50 Nirmal feliz 50% Syringe 0-14 mL, Route: l 06:35: IVP, Drug [place] 00 Form: INJ, Dosing Weight 51.449, kg, PRN, PRN Blood Glucose Results, Start date: 01/25/17 1:35:00 CDT, Duration: 30 day, Stop date: 02/24/17 0:34:00 MOTOR RACER Hydralazine 2016-04 No Notes: Nirmal feliz 0-14 (Same as: l 06:35: Apresoline ) Push over 5 minutes Acetaminoph 2016-04 No Notes: Do M emoria en 0-14 not exceed l 06:32: 4 gm/day. [place] (Same as: Tylenol) Acetaminoph 2016-04 No Notes: Nirmal feliz en 325 MG / 0-14 (Same as: l Hydrocodone 06:32: [place] Eugenia nn Bitartrate 00 325/5) Do 5 [...] 01/25/17 1:32:00 CDT, Stop date: 02/24/17 1:31:00 MOTOR RACER Saline 2016-04 No Notes: Memoria Flush 0.9% [...] Memoria 0-14 Route: l 03:07: IVP, Drug [place] 00 form: INJ, ONCE, Dosing Weight 52.273, [...] / -15 (Same as: l Hydrocodone 04:47: [place] Eugenia nn Bitartrate 00 325/5) Do 5 MG Oral not exceed Tablet 4gm/day of [[place] acetaminop 5/325] hen. insulin Yes QD Inject [...] 11-28 Roche Rate: l 0.9% 02:51: 1,000 [place] (Bolus) IV 00 ml/hr, 1,000 mL Infuse over: 1 hr, Route: IVPB, kg, Total Volume: 1,000, Bolus Dose, Priority: STAT, Start date: 11/28/11 21:51:00, Duration: 1 doses or times, Stop date: 11/28/11 22:50:00 Saline 2011-0 No V[place] 5 ml, Memoria Flush 0.9% 11-28 Roche Route: l 02:51: IVP, Drug [place] 00 Form: INJ, kg, PRN, PRN Line Flush, Start date: 11/28/11 21:51:00, Duration: 30 day, Stop date: 12/28/11 21:50:00 [place] 5/325 2011-0 Yes Juan 1-2 tab, M [...] Roche mL, Route: l 05:04: IVP, Drug [place] 00 form: INJ, ONCE, Priority: STAT, Start [...] 1-25 Raulito tab, l 02:03: Route: PO, [place] Drug form: TAB, ONCE, Priority: STAT, Start [...] ing Nausea and Vomiting, Substituti on Allowed [place] Yes Juan 1 tab, PO, Memor ia [...] Phelps Daily, 255 l for 05:57: gm, [place] reconstitut 18 Substituti ion on Allowed, PDR/REC [...] Zay Phelps Rate: l 0.9% 03:24: 1,000 [place] (Bolus) IV 00 ml/hr, 1,000 mL Infuse over: 1 hr, Route: IV, Total Volume: 1,000, Bolus Dose, Priority: STAT, Start date: 03/25/11 21:24:00, Duration: 1 doses or times, Stop date: 03/25/11 22:23:00 Insulin 2010-04 No Mila 10 unit, Mem oria regular 2-13 Zay Phelps 0.1 mL, l 03:16: Route: [place] 00 IVP, Drug form: SOLN, ONCE, Priority: STAT, Start date: 03/25/11 21:16:00, Stop date: 03/25/11 21:16:00 Omnipaque 2010-04 Yes Mila 30,000 mg, Memoria 300 2-13 Zay Phelps 100 mL, l 03:15: Route: IV, Drug form: SOLN, ONCE, Start date: 03/25/11 21:15:00, Stop date: 03/25/11 21:15:00 Saline 2010-04 No Mila 5 ml, Memoria Flush 0.9% 2-13 Herreid Phelps Route: l 02:19: IVP, Drug Form: [...] 4 mg, 0.8 M emoria Sulfate 2-13 Herreid Phelps mL, Route: l 02:19: IVP, Drug [...] mg tablet, 0-31 Daily, l chewable 17:29: tabAyanaVarna 44 Substituti on Allowed, CHEWTAB Cipro 2010-04 No Dk 250 mg, 1 Memori a 0-31 Ari tab, l 16:00: Jonathan Route: PO, Drug form: TAB, [id number], Start date: 02/11/11 11:00:00, Duration: 30 day, [...] Ari 0.7 mL, l 14:00: Jonathan Route: [place] 00 SUB-Q, Drug form: INJ, Daily, Start [...] PO, l tablet 11:36: [place] BID, 6 [place] 36 tab, Substituti on Allowed Cipro 2010-04 No Dk 250 mg, 1 Memori a 0-31 Ari tab, l 08:00: Jonathan Route: PO, Herm ava 00 Drug form: TAB, [id number], Start date: 02/11/11 3:00:00, Duration: 30 day, [...] mg tablet 0-31 Ari tab, l 07:05: Jonathan Route: PO, Herm ava 00 Drug form: TAB, ONCE, Start date: 02/11/11 2:05:00, Stop date: 02/11/11 2:05:00 morphine 2010-04 No Penelope S 2 mg, 0.4 Me moria Sulfate 0-31 Shauna mL, Route: l 05:37: IVP, Drug [place] 00 form: INJ, ONCE, Priority: STAT, Start date: 02/11/11 0:37:00, Stop date: 02/11/11 0:37:00 Visipaque 2010-04 No Penelope S 48,000 mg, Memoria 0-31 [place] 150 mL, l 04:55: Route: IV, J[place] 00 Drug form: INJ, ONCE, Start date: 02/10/11 23:55:00, Stop date: 02/10/11 23:55:00 Zofran 2010-04 No Penelope S 4 mg, 2 Memori a 0-31 [place]una mL, Route: l 04:28: IVP, Drug [place] form: INJ, ONCE, Start date: 02/10/11 23:28:00, Stop date: 02/10/11 23:28:00 Cipro 2010-04 No Penelope S 400 mg, Memoria 0-31 [place]una Route: l 04:08: IVPB, [place] 00 ONCE, Priority: STAT, Start date: 02/10/11 23:08:00, Stop date: 02/10/11 23:08:00 Insulin 2010-04 No Penelope S 10 unit, Nirmal feliz regular 0-31 [place]una Route: l 03:56: SUB-Q, [place] 00 ONCE, Priority: STAT, Start date: 02/10/11 22:56:00, Stop date: 02/10/11 22:56:00 Sodium 2010-04 No Penelope S 1,000 mL, Nirmal feliz Chloride 0-31 [place] Rate: l 0.9% 03:55: 1,000 [place] (Bolus) IV 00 ml/hr, 1000 mL Infuse over: 1 hr, Route: IV, Total Volume: 1,000, Bolus Dose, Priority: STAT, Start date: 02/10/11 22:55:00, Duration: 1 doses or times, Stop date: 02/10/11 23:54:00 BD 2010-04 No Penelope S 15 mL, Memoria Posiflush 0-31 [place] Route: l SF 02:55: IVP, Drug [place] 00 Form: INJ, PRN, PRN Line Flush, Start date: 02/10/11 21:55:00, Duration: 30 day, Stop date: 03/12/11 20:54:00 aspirin 325 2010-04 No Penelope S 325 mg, M emoria mg tablet 0-31 [place]una Route: PO, l 02:47: Drug form: [place] 00 TAB, ONCE, Priority: STAT, Start date: 02/10/11 21:47:00, Stop date: 02/10/11 21:47:00 metoprolol 2010-04 No Penelope S 50 mg, Mem oria tartrate 0-31 [place]una Route: PO, l 02:47: Drug form: [place] 00 TAB, ONCE, (Hold if SBP < [...] 0-31 Shauna tab, l 02:47: Route: SL, [place] Drug form: TAB, Q5Min, PRN Chest Pain, [...] 0-31 [place]una Route: l 02:47: IVP, PRN, [place] PRN Line Flush, Start date: 02/10/11 21:47:00, [...] Victoriano tab, l 02:00: [place] Route: PO, [place] 00 Drug form: TAB, Bedtime, Start date: [...] Q12H, l tablet 15:37: Edwards 30 tab, [place] 31 Substituti on Allowed, TAB aspirin 325 [...] Q4H, PRN, l 14:18: [place] 30 tab, [place] 21 Headache, Substituti on Allowed, Maintenanc e, [...] tablet 0-04 tab, PO, l 13:58: Bedtime, [place] 11 Substituti on Allowed ibuprofen 2010-04 Beth [...] 0.06 mL, l Sliding 00:22: [place] Route: [place] Scale - 00 SUB-Q, Very High Drug [...] Route: IM, l 00:22: [place] Drug form: [place] 00 PDR/INJ, PRN, PRN Blood Glucose Results, Start date: 01/14/11 19:22:00, Duration: 30 day, Stop date: 02/13/11 19:21:00 Saline 2010-04 No Dakota 5 ml, Memoria Flush 0.9% 0-04 Minhvu Victoriano Route: l 00:21: [place] IVP, Drug [place] Form: INJ, PRN, PRN Line Flush, Start [...] Victoriano cap, l 00:21: [place] Route: PO, [place] 00 Drug form: CAP, Bedtime, PRN Insomnia, [...] 0-03 Davis Route: l 20:20: IVP, Drug [place] 00 Form: INJ, PRN, PRN Line Flush, [...] [facility] [place] Heart Rate 2017-02-26 06:50:00 [facility] [place] Respitory Rate 2017-02-26 04:30:00 Memori al [place] Systolic (mm Hg) 2017-02-26 04:30:00 Nirmal rial [place] Diastolic (mm Hg) 2017-02-26 04:30:00 Mem orial [place] Heart Rate 2017-02-26 04:30:00 [facility] [place] Temperature Oral (F) 2017-02-26 00:55:00 98.8 F [facility] [place] Weight 2017-02-26 00:55:00 [facility] [place] BMI Calculated 2017-02-26 00:55:00 Memori al [place] Height 2017-02-26 00:55:00 162.56 cm [facility] [place] Systolic (mm Hg) 2017-02-26 00:55:00 Nirmal rial [place] Diastolic (mm Hg) 2017-02-26 00:55:00 Mem orial [place] Heart Rate 2017-02-26 00:55:00 [facility] [place] Respitory Rate 2017-02-26 00:55:00 Memori al [place] Respitory Rate 2017-02-25 07:35:00 Memori al [place] Systolic (mm Hg) 2017-02-25 07:35:00 Nirmal rial [place] Diastolic (mm Hg) 2017-02-25 07:35:00 Mem orial [place] Temperature Oral (F) 2017-02-25 07:35:00 98.2 F [facility] [place] Heart Rate 2017-02-25 07:35:00 [facility] [place] BMI Calculated 2017-02-25 05:05:00 Memori al [place] Weight 2017-02-25 05:05:00 [facility] [place] Height 2017-02-25 05:05:00 162.56 cm [facility] [place] Heart Rate 2017-02-25 05:05:00 [facility] [place] Respitory Rate 2017-02-25 05:05:00 Memori al [place] Temperature Oral (F) 2017-02-25 05:05:00 97.8 F [facility] [place] Systolic (mm Hg) 2017-02-25 05:05:00 Nirmal rial [place] Diastolic (mm Hg) 2017-02-25 05:05:00 Mem orial [place] Weight 2017-02-25 04:55:00 [facility] [place] Height 2017-02-25 04:55:00 167.64 cm [facility] [place] Temperature Oral (F) 2017-02-25 04:55:00 97.8 F [facility] [place] BMI Calculated 2017-02-25 04:55:00 Memori al [place] Systolic (mm Hg) 2017-02-25 04:55:00 Nirmal rial [place] Diastolic (mm Hg) 2017-02-25 04:55:00 Mem orial [place] Respitory Rate 2017-02-25 04:55:00 Memori al [place] Heart Rate 2017-02-25 04:55:00 [facility] [place] Temperature Oral (F) 2017-01-26 16:47:00 98.5 F [facility] [place] Heart Rate 2017-01-26 16:47:00 [facility] [place] Respitory Rate 2017-01-26 16:47:00 Memori al [place] Systolic (mm Hg) 2017-01-26 16:47:00 Nirmal rial [place] Diastolic (mm Hg) 2017-01-26 16:47:00 Mem orial [place] Heart Rate 2017-01-26 12:26:00 [facility] [place] Respitory Rate 2017-01-26 12:26:00 Memori al [place] Temperature Oral (F) 2017-01-26 12:26:00 98.4 F [facility] [place] Systolic (mm Hg) 2017-01-26 12:26:00 Nirmal rial [place] Diastolic (mm Hg) 2017-01-26 12:26:00 Mem orial [place] Temperature Oral (F) 2017-01-26 09:50:00 98.1 F [facility] [place] Heart Rate 2017-01-26 09:50:00 [facility] [place] Systolic (mm Hg) 2017-01-26 09:50:00 Nirmal rial [place] Diastolic (mm Hg) 2017-01-26 09:50:00 Mem orial [place] Respitory Rate 2017-01-26 09:50:00 Memori al [place] Height 2017-01-25 05:58:00 157.48 cm [facility] [place] Weight 2017-01-25 05:58:00 [facility] [place] BMI Calculated 2017-01-25 05:58:00 Memori al [place] Weight 2017-01-25 02:01:00 [facility] [place] BMI Calculated 2017-01-25 02:01:00 Memori al [place] Height 2017-01-25 02:01:00 162.56 cm [facility] [place] Systolic (mm Hg) 2016-12-27 06:03:00 Nirmal rial [place] Diastolic (mm Hg) 2016-12-27 06:03:00 Mem orial [place] Respitory Rate 2016-12-27 06:03:00 Memori al [place] Heart Rate 2016-12-27 06:03:00 [facility] [place] Temperature Oral (F) 2016-12-27 06:03:00 98.3 F [facility] [place] Temperature Oral (F) 2016-12-27 04:22:00 98.4 F [facility] [place] Respitory Rate 2016-12-27 04:22:00 Memori al [place] Systolic (mm Hg) 2016-12-27 04:22:00 Nirmal rial [place] Diastolic (mm Hg) 2016-12-27 04:22:00 Mem orial [place] BMI Calculated 2016-12-27 04:22:00 Memori al [place] Weight 2016-12-27 04:22:00 [facility] [place] Heart Rate 2016-12-27 04:22:00 [facility] [place] Height 2016-12-27 04:22:00 162.56 cm [facility] [place] Height 2012-02-06 15:19:00 162.56 cm [facility] [place] Weight 2012-02-06 15:19:00 [facility] [place] Height 2011-11-29 02:35:00 162.56 cm [facility] [place] Weight 2011-11-29 02:35:00 [facility] [place] Height 2011-10-25 02:45:00 162.56 cm [facility] [place] Weight 2011-10-25 02:45:00 [facility] [place] Height 2011-05-23 04:48:00 162.56 cm [facility] [place] Weight 2011-05-23 04:48:00 [facility] [place] Temperature Oral (F) 2011-05-08 02:38:00 98.5 F [facility] [place] Diastolic (mm Hg) 2011-05-08 02:38:00 Mem orial [place] Systolic (mm Hg) 2011-05-08 02:38:00 Nirmal rial [place] Heart Rate 2011-05-08 02:38:00 [facility] [place] Respitory Rate 2011-05-08 02:38:00 Memori al [place] Weight 2011-05-08 00:09:00 [facility] [place] Height 2011-05-08 00:09:00 162.56 cm [facility] [place] Temperature Oral (F) 2011-05-08 00:09:00 98.6 F [facility] [place] Diastolic (mm Hg) 2011-05-08 00:09:00 Mem orial [place] Systolic (mm Hg) 2011-05-08 00:09:00 Nirmal rial [place] Heart Rate 2011-05-08 00:09:00 [facility] [place] Respitory Rate 2011-05-08 00:09:00 Memori al [place] Respitory Rate 2011-04-20 07:05:00 Memori al [place] Heart Rate 2011-04-20 07:05:00 [facility] [place] Diastolic (mm Hg) 2011-04-20 07:05:00 Mem orial [place] Systolic (mm Hg) 2011-04-20 07:05:00 Nirmal rial [place] Diastolic (mm Hg) 2011-04-20 06:01:00 Mem orial [place] Heart Rate 2011-04-20 06:01:00 [facility] [place] Systolic (mm Hg) 2011-04-20 06:01:00 Nirmal rial [place] Respitory Rate 2011-04-20 06:01:00 Memori al [place] Weight 2011-04-20 02:25:00 [facility] [place] Systolic (mm Hg) 2011-04-20 02:25:00 Nirmal rial [place] Temperature Oral (F) 2011-04-20 02:25:00 98.0 F [facility] [place] Respitory Rate 2011-04-20 02:25:00 Memori al [place] Heart Rate 2011-04-20 02:25:00 [facility] [place] Diastolic (mm Hg) 2011-04-20 02:25:00 Mem orial [place] Temperature Oral (F) 2011-03-26 06:05:00 98.0 F [facility] [place] Respitory Rate 2011-03-26 06:05:00 Memori al [place] Heart Rate 2011-03-26 06:05:00 [facility] [place] Systolic (mm Hg) 2011-03-26 06:05:00 Nirmal rial [place] Diastolic (mm Hg) 2011-03-26 06:05:00 Mem orial [place] Height 2011-03-26 01:58:00 160.02 cm [facility] [place] Weight 2011-03-26 01:58:00 [facility] [place] Temperature Oral (F) 2011-03-26 01:58:00 99.0 F [facility] [place] Diastolic (mm Hg) 2011-03-26 01:58:00 Mem orial [place] Systolic (mm Hg) 2011-03-26 01:58:00 Nirmal rial [place] Respitory Rate 2011-03-26 01:58:00 [facility] Heart Rate 2011-03-26 01:58:00 [facility] Diastolic (mm Hg) 2011-02-11 15:37:00 [facility] Respitory Rate 2011-02-11 15:37:00 [facility] Systolic (mm Hg) 2011-02-11 15:37:00 [facility] Heart Rate 2011-02-11 15:37:00 [facility] Temperature Oral (F) 2011-02-11 15:37:00 98.1 F [facility] Diastolic (mm Hg) 2011-02-11 11:53:00 [facility] Systolic (mm Hg) 2011-02-11 11:53:00 [facility] Temperature Oral (F) 2011-02-11 11:53:00 97.5 F [facility] Heart Rate 2011-02-11 11:53:00 [facility] Respitory Rate 2011-02-11 11:53:00 [facility] Height 2011-02-11 07:38:00 162.56 cm [facility] Weight 2011-02-11 07:38:00 [facility] Respitory Rate 2011-02-11 07:38:00 [facility] Temperature Oral (F) 2011-02-11 07:38:00 98.0 F [facility] Heart Rate 2011-02-11 07:38:00 [facility] Systolic (mm Hg) 2011-02-11 07:38:00 [facility] Diastolic (mm Hg) 2011-02-11 07:38:00 [facility] Weight 2011-02-11 02:32:00 [facility] Height 2011-02-11 02:32:00 162.56 cm [facility] Diastolic (mm Hg) 2011-01-15 16:44:00 [facility] Systolic (mm Hg) 2011-01-15 16:44:00 Nirmal [facility] Temperature Oral (F) 2011-01-15 16:44:00 97.0 F [facility] Heart Rate 2011-01-15 16:44:00 [facility] Respitory Rate 2011-01-15 16:44:00 [facility] al [facility] Temperature Oral (F) 2011-01-15 12:18:00 97.2 F [facility] Respitory Rate 2011-01-15 12:18:00 [facility] Heart Rate 2011-01-15 12:18:00 [facility] Diastolic [...] [facility]ona Height 2011-01-14 20:07:00 162.56 cm [facility] Weight 2011-01-14 20:07:00 [facility] Systolic (mm Hg) 2010-12-22 18:51:00 Nirmal [facility] Diastolic (mm Hg) 2010-12-22 18:51:00 [facility] Peripheral Pulse Rate 2010-12-22 18:51:00 [facility] Respitory Rate 2010-12-22 18:51:00 [facility] Height 2010-12-22 16:57:00 162.56 cm [facility] Weight 2010-12-22 16:57:00 [facility] Temperature Oral (F) 2010-12-22 16:57:00 98.2 F [facility] Respitory Rate 2010-12-22 16:57:00 [facility] Peripheral Pulse Rate 2010-12-22 16:57:00 [facility] Diastolic (mm Hg) 2010-12-22 16:57:00 [facility] Systolic (mm Hg) 2010-12-22 16:57:00 Nirmal [facility] Procedures Procedure Date / Time Performed Performing Clinician [facility] e Appendectomy [facility] Cholecystectomy [facility] Partial hysterectomy [facility] rmann Plan of Care Planned Activity Planned Date Details Comments Source Future Scheduled 2019-12-[address] [facility] - Test 00:00:00 (#1) [code = [facility] INFLUENZA VACCINE (#1)] Future Scheduled [address] [facility] Test 00:00:00 (procedure) [code = [facility] 31330211] Future Scheduled [address] [facility] 00:00:00 malignant neoplasm Medical C enter of cervix (procedure) [code = 929492985] Future Scheduled [address] [facility] Test 00:00:00 malignant neoplasm Medical C enter of breast (procedure) [code = 243035695] Future Scheduled [address] [facility] 00:00:00 malignant neoplasm Medical C enter of colon (procedure) [code = 864437803] Encounters Start End Encounter Admission Attending Care Care Encounter Source Date/Time Date/Time Type Type Clinicians Facility Department ID 2018-11-26 2018-11-26 Emergency [facility] [id number] 11:32:46 15:11:00 Edgard Medley [id number] [place] [id number] [place] [id number] 2018-11-26 2018-11-26 Orders Doctor MIKE [id number] 00:00:00 00:00:00 Only Unassigned, [place] [id number] [place] [facility] [id number] [id number] 2017-02-25 2017-02-26 Outpatient Quezada, 2.16.840. 2.16.840.1. 4 [id number] 18:38:00 00:55:00 Rudolph [id number]. [id number] 03 Mateo 3.615.120 5.120 2017-02-24 2017-02-25 Outpatient Quezada, 2.16.840. 2.16.840.1. 4 [id number] 22:49:00 01:35:00 Rudolph [id number]. [id number] 02 Mateo 3.615.120 5.120 2017-01-24 2017-01-26 Outpatient Kayla, 2.16.840. 2.16.840.1 . [id number] 20:53:00 14:35:00 Greg Giron [id number]. [id number] 01 3.615.120 5.120 2016-12-26 2016-12-27 Outpatient Davis, 2.16.840. 2.16.840.1. 4 [id number] 23:03:00 01:05:00 Moise Rojas [id number]. [id number] 00 3.615.120 5.120 Results Test Description Test Time Test Comments Results Result Comments Source POCT-GLUCOSE METER 2017-10-07 11:53:00 Test Item Value Reference Range Interpretation Comme nts POC-GLUCOSE METER (BEAKER) (test 277 mg/dL 70-110 H TESTED AT [address] POINT code = 1538) [address] [facility] [address] POCT-GLUCOSE [id number] 11:53:00 Test Item Value Reference Range Interpretation Comments POC-GLUCOSE METER 411 mg/dL 70-110 HH TESTED AT [address] ([facility] (test code POINT [address] [facility] = 1538) [address] RAD, SPINE, CERVICAL, 2 OR 3 [id number] 23:46:00Reason for exam:->neck painFINAL REPORT RAD, SPINE, [...] Grayson Verified Date/Time: 10/06/2017 23:46:30 Reading Location: [address] Transitional Reading Room CT, SPINE, CERVICAL, [...] MDReport Verified Date/Time: 10/06/2017 23:44:40 Reading Location: [address] Transitional Reading Room CT, BRAIN, WITHOUT [...] Oden Verified Date/Time: 10/06/2017 23:24:44 Reading Location: [address] Reading Room TROPONIN I 2017-10-06 22:56:00 [...] acute neurological disease, and persistent tachyarrhythmia.COMPREHENSIVE METABOLIC [id number] 22:50:00 Test Item Value Reference Range Interpretation [...] S NOT APPLICABLE FOR DIALYSIS PATIEN TS. [id number] 22:42:00 Test Item Value Reference Range Interpretation Comments AMYLASE (BEAKER) (test code = 349) 58 U/L 30-110 CBC W/PLT COUNT & AUTO [id number] 22:22:00 Test Item Value Reference Range Interpretation [...] 0.00-0.20 (test code = 417) URINALYSIS W/ [id number] 22:09:00 Test Item Value Reference Range Interpretation [...] code = 1663) SOURCE(BEAKER) (test code = 7215) POCT-GLUCOSE [id number] 07:19:00 Test Item Value Reference Range Interpretation Comments POC-GLUCOSE METER 241 mg/dL 70-110 H TESTED AT [address]) (test code [address] [facility] = 1538) [address] CT, [id number] 19:16:00FINAL REPORT CT OF THE ABDOMEN AND [...] MDReport Verified Date/Time: 09/22/2017 19:16:29 Reading Location: [address] Consult Reading Room BASI METABOLIC [id number] 17:37:00 Test Item Value Reference Range Interpretation [...] NOT APPLICABLE FOR DIALYSIS PATIEN TS. TROPONIN [id number] 17:07:00 Test Item Value Reference Range Interpretation [...] (test code = 749) 26 U/L 6-51 [id number] 16:51:00 Test Item Value Reference Range Interpretation Comments AMYLASE (BEAKER) (test 32 U/L 30-110 Speci men markedly code = 349) hemolyzed URINALYSIS W/ [id number] 16:21:00 Test Item Value Reference Range Interpretation [...] = 2795) CBC W/PLT COUNT & AUTO [id number] 16:15:00 Test Item Value Reference Range Interpretation [...] L 0.00-0.20 (test code = 417) POCT-GLUCOSE [id number] 15:36:00 Test Item Value Reference Range Interpretation Comments POC-GLUCOSE METER 284 mg/dL 70-110 H TESTED AT [address] ([facility] (test code POINT [facility] [place] = 1538) [address] CT, [id number] 15:32:00Reason for exam:->LLQ ABD PAINIs the patient [...] MDReport Verified Date/Time: 07/07/2017 15:32:20 Reading Location: [facility] C013Y CT Body Reading Room LIPASE 2017-07-07 14:41:00 Test Item Value Reference Range Interpretation Comments LIPASE (BEAKER) (test code = 749) 32 U/L 6-51 COMPREHENSIVE METABOLIC [id number] 14:40:00 Test Item Value Reference Range Interpretation [...] NOT APPLICABLE FOR DIALYSIS PATIEN TS. POCT-GLUCOSE [id number] 14:10:00 Test Item Value Reference Range Interpretation Comments POC-GLUCOSE METER 352 mg/dL 70-110 H TESTED AT [address] (BEAKER) (test code POINT [address] [facility] [place] = 1538) [address] CBC W/PLT COUNT & AUTO [id number] 13:30:00 Test Item Value Reference Range Interpretation [...] 0.00-0.20 (test code = 417) URINALYSIS W/ [id number] 13:01:00 Test Item Value Reference Range Interpretation [...] 1663) SOURCE(BEAKER) (test code = 2795) KETONE, [id number] 12:58:00 Test Item Value Reference Range Interpretation Comments KETONES, BLOOD (BEAKER) (test code 0.1 mmol/L <0.4 = 1103) BLOOD GAS, [id number] 12:48:00 Test Item Value Reference Range Interpretation [...] (test code = 1819) 37.0 % POCT-GLUCOSE [id number] 12:04:00 Test Item Value Reference Range Interpretation Comments POC-GLUCOSE METER > mg/dL 70-110 HH OUTSIDE ME ASURING (BEAKER) (test code RANGETES RPATIMA AT [address] = 1538[address] [facility] [address] BACTERIAL - [id number] 03:02:00Negative (02/25/17 9:02 PM)[facility] [id number] 03:02:00 Test Item Value Reference Range Interpretation Comments Tube Num CSF (test code = Tube Num CSF) 1 1 [facility] NTHTPE2349-02-31 03:02:00Clear (02/25/17 9:02 PM)[facility] NADQOG5785-44-06 03:02:00Colorless (02/25/17 9:02 PM)[facility] PBCLLY5736-05-88 03:02:00Colorless (02/25/17 9:02 PM)[facility] GTNSTH7312-05-06 03:02:002[facility] UJETQW6581-39-89 03:02:001[facility] DKWLZZ0469-60-18 03:02:001[facility] JNQDCZ3172-54-59 03:02:002[facility] KOZJFG5537-65-63 03:02:00 Colorless (02/25/17 9:02 PM)[facility] IBZLLY0267-41-41 03:02:00Clear (02/25/17 9:02 PM)[facility] SGELVB6635-44-36 03:02:00 Test Item Value Reference Range Interpretation Comments Tube Num CSF (test code = Tube Num CSF) 4 1 [facility] ZHZBLY7943-74-35 03:02:00Colorless (02/25/17 9:02 PM) [facility] FKBXEH0546-11-12 03:02:39245Csdxvvyq HermannBODY FLUIDS 2017-02-26 03:02:0055[facility] HermannFUNGAL - ISSDPIQF8645-87-73 03:02:00 Negative (02/25/17 9:02 PM)[facility] QgvqtanSURBYERUBT2187-47-46 03:02:00Non Reactive (02/25/17 9:02 PM)[facility] HermannMOLECULAR ZKUXGHAAXZ1127-56-18 03:02:00Negative 2(02/25/17 9:02 PM)[facility] HermannMOLECULAR DIAGNOSTIC 2017-02-26 03:02:00Negative 1(02/25/17 9:02 PM)[facility] HermannVIRAL - SEROLOGY 2017-02-26 03:02:00Negative (02/25/17 9:02 PM)[facility] HermannCHEM PANEL 2017-02-26 01:42:000.9[facility] HermannCHEM FAAHJ7742-42-25 01:42:0023[facility]annCHEM PBJBW0563-93-88 01:42:004.3[facility] HermannCHEM WFIBZ4932-11-59 01:42:0011.3[facility] HermannCHEM UMTRG4815-61-53 01:42:25375Jjkaxszo HermannCHEM CHVBN3181-84-95 01:42:000.3[facility] HermannCHEM DPOQA2254-17-11 01:42:0016 [facility]annCHE[facility] LWDYG9309-99-36 01:42:0017[facility] HermannCHEM PANEL 2017-02-26 01:42:008.2[facility]annCHEM NUCEJ7243-41-89 01:42:004.3[facility]annCHEM PJIDK9380-45-27 01:42:72862Hhhrqbua HermannCHEM YFKYU3975-74-52 01:42:000.70[facility] HermannCHEM QBVVF3927-75-05 01:42:54393Sybyacjb HermannCHEM SFBVV3369-34-79 01:42:008.9[facility] HermannCHEM BNCMI4873-08-93 01:42:0097 [facility]annCHEM BXQSF9315-12-62 01:42:0026[facility] HermannCHEM PANEL 2017-02-26 01:42:94103Bzhmwmgh HermannCHEM WKGKS9531-17-95 01:42:0016[facility] HermannCHEM YPIKU7497-68-87 01:42:003.9[facility] HermannCHEM LRDPJ2236-68-06 01:42:001.8[facility] OlokipfQPUYWOPJKU5251-32-87 01:42:05991Ssubgkph Varna KTVBXCQUBT1892-77-29 01:42:0082.2[facility]orial SnmtrhvEGDVEJBEKI4668-92-14 01:42:00 37.1Memorial WptkrvtGOFHLYUQRL6890-07-72 01:42:007.4[facility] HermannHEMATOLOGY 2017-02-26 01:42:0014.1Memorial XclbtrmTMVHRUABLQ8996-46-54 01:42:00 Test Item Value Reference Range Interpretation Comments MCH (test code = MCH) 27.6 pg 27.0-31.0 Memorial VrxkyxmWQHRGGVDBI5253-97-85 01:42:0033.6[facility] HermannHEMATOLOGY 2017-02-26 01:42:004.52Memorial BkicblnYXBNRHIXDD6803-04-44 01:42:0012.5[facility] KemoudfDFFMNIORQR4499-77-48 01:42:007.1Memorial YyflsipRMSJQEMTDK9146-76-38 01:42:000.8[facility]orial FctfefoVBKNNHNIVJ7096-37-06 01:42:002.8[facility] QQCWGWJQFY1473-56-11 01:42:003.8[facility]orial HqjcnnkSYGMEICHFV6871-98-73 01:42:000.4 Memorial JgtpcsmQIFBMOVOTA6472-22-99 01:42:0053.4[facility] HermannHEMATOLOGY 2017-02-26 01:42:0039.1[facility] WsseqymKONTTPZJTY1830-24-85 01:42:001.4[facility]orial FcrjrhoNPTMKGDTLD8679-93-86 01:42:005.3[facility]orial DoltkgeTNGBFEBQET5405-34-07 01:42:000.1[facility]orial KfqhoviDJMBLIAUEC3629-29-24 01:42:000.1[facility] HermannURINE AND NARSY3481-92-26 01:42:000.2[facility]annUR[facility] AND BOVUC5160-94-78 01:42:00Negative (02/25/17 7:42 PM)[facility] AND SNOQA4617-84-01 01:42:00Negative *NA*(02/25/17 7:42 PM)[facility] AND ZKRBN1602-77-72 01:42:00Negative *NA*(02/25/17 7:42 PM)[facility] AND QZQLD8139-41-33 01:42:00Negative (02/25/17 7:42 PM)[facility] AND JSKLB9495-27-67 01:42:00Negative (02/25/17 7:42 PM)[facility] AND QNGOY6233-29-02 01:42:00Negative (02/25/17 7:42 PM)[facility] AND TBHMT5095-97-69 01:42:00 Test Item Value Reference Range Interpretation Comments UA pH (test code = UA pH) 6.0 1 5.0-8.0 [facility] AND PHFJO8047-20-54 01:42:00 Test Item Value Reference Range Interpretation Comments UA Spec Grav (test code = UA Spec 1.010 1 Grav) [facility] AND NPQFN8482-23-18 01:42:00Yellow *NA*(02/25/17 7:42 PM) [facility] AND FLCIJ2898-58-12 01:42:00Slight Cloudy (02/25/17 7:42 PM)[facility] HermannVIRAL - HFKCEHUX5995-40-43 01:42:00Negative (02/25/17 7:42 PM)[facility] HermannVIRAL - RYARKTIJ0319-15-87 01:42:00Negative (02/25/17 7:42 PM)[facility] HermannCHEM NHBYC2759-46-30 09:02:82114Ekutuabu HermannCHEM PANEL 2017-01-26 09:02:000.2[facility] HermannCHEM TVOKP7861-73-77 09:02:46709Xvjhcjuw HermannCHEM SIDXF6961-41-47 09:02:0012[facility] HermannCHEM HTMBC5235-81-86 09:02:003.3[facility] HermannCHEM GVMMO1579-32-35 09:02:002.4[facility] HermannCHEM KDKFI7076-04-48 09:02:005.7[facility] HermannCHEM IPCVH1413-70-02 09:02:009.7 [facility] HermannCHEM NETAT6126-60-00 09:02:46874Ojuvlvgm HermannCHEM PANEL 2017-01-26 09:02:007.4[facility] HermannCHEM QZNLA7820-17-21 09:02:000.7[facility] HermannCHEM AMLRX6494-82-30 09:02:000.40[facility] HermannCHEM XYYVN7186-73-61 09:02:005[facility] HermannCHEM VRNFY9279-81-98 09:02:0037[facility] HermannCHEM LSNUM9407-10-60 09:02:0044[facility] HermannCHEM QXDQF8305-48-49 09:02:003.7 [facility] HermannCHEM BVCEX0606-00-39 09:02:03928Lfueyqtl HermannCHEM PANEL 2017-01-26 09:02:0025[facility] HermannCHEM OVMHL4460-08-71 09:02:05901Ccwdpfpc HermannCARDIAC TZXIQWB4657-80-12 22:26:00<0.02[facility] HermannPARATHYROID IVIAUFO6621-20-24 22:26:000.99[facility] HermannPARATHYROID AUJZIVL6999-55-76 22:26:001.01[facility] HermannCHEM LCAZZ1035-63-67 20:00:002.6[facility] HermannCHEM ETXCE8482-00-81 20:00:98344Hdgfypdg HermannCHEM HVFZU3613-83-67 20:00:000.50 [facility]annCHEM OMYEA9480-40-88 20:00:21179Xllltrka HermannCHEM PANEL 2017-01-25 20:00:003.6[facility] HermannCHEM ZVHDM7740-01-92 20:00:0025[facility] HermannCHEM JMFYG3230-93-10 20:00:69044Oqpkohiu HermannCHEM RBJKD0380-34-99 20:00:008.6[facility] HermannCHEM RNCEZ6010-50-58 20:00:006.9[facility] HermannCHEM DLOQW9523-81-97 20:00:94809Qfqbsnrz HermannCHEM PTLOZ8826-82-91 20:00:008 [facility]annCHEM BLRQL8657-99-71 08:54:002.7[facility] HermannCHEM PANEL 2017-01-25 08:54:15713Kmjrzcib HermannCHEM NFINO0012-44-75 08:54:000.60[facility] HermannCHEM CJJBL1038-26-71 08:54:009[facility] HermannCHEM ANAUE0934-19-97 08:54:51684Cxezhtrs HermannCHEM DELBO3582-51-24 08:54:0012.5[facility] HermannCHEM RLHIB0326-96-70 08:54:003.5[facility] HermannCHEM QOQWN0015-85-48 08:54:19396 [facility] HermannCHEM LIUWQ5791-22-95 08:54:0023[facility] HermannCHEM PANEL 2017-01-25 08:54:007.1[facility] HermannCHEM BXFBL3430-63-85 08:54:41826Qxuwxjrp HermannCHEM VNQZM2790-96-88 08:54:001.7Memorial JbxzsyaEBSQARUVCT7495-85-90 08:54:007.4Memorial BlxkpmdLVRDBBGGWB3129-62-88 08:54:0013.6[facility] IJINNGNNJB7017-72-86 08:54:74491Mmohnfgs ZfzwqapWQFYQVFHOT1007-12-05 08:54:00 33.4Memorial IqtmwbxFTZIIPRQAY6684-58-61 08:54:0082.5[facility] HermannHEMATOLOGY 2017-01-25 08:54:00 Test Item Value Reference Range Interpretation Comments MCH (test code = MCH) 27.6 pg 27.0-31.0 Memorial RvihhvzFVZVXDCMXU2850-20-14 08:54:0010.7[facility] HermannHEMATOLOGY 2017-01-25 08:54:0032.0[facility] AniyxhjMXAZMWDUSJ6906-09-07 08:54:005.5[facility] ZivusxfFTQVYEUNYD4455-07-70 08:54:003.88Memorial AkzrrvaZRRVOCYDQL1026-03-57 08:54:007.2[facility] XilhvfuVNOTODTXFY8234-79-63 08:54:000.4[facility] JDOLYOYEZE7273-11-11 08:54:003.0[facility] PpkzqqqMBRKWWVSSP8835-04-55 08:54:002.0 Memorial WrvddtlTQVSOEAIWT9034-28-88 08:54:000.9[facility] HermannHEMATOLOGY 2017-01-25 08:54:000.6[facility] VgwwoylJHPOSMBUPX3515-90-66 08:54:0036.3Memorial MzjywgoBQCNRFSQFL4962-45-58 08:54:0055.0[facility]annURINE AND STOOL 2017-01-25 04:54:00Negative (01/24/17 11:54 PM)[facility] AND STOOL 2017-01-25 04:54:00Positive *ABN*(01/24/17 11:54 PM)[facility] AND XIPNZ1330-28-80 04:54:00Negative (01/24/17 11:54 PM)[facility] AND FMAOQ8151-95-57 04:54:00Negative *NA*(01/24/17 11:54 PM)[facility] ANSKN8228-29-60 04:54:00Negative (01/24/17 11:54 PM)[facility] AND DYDEV1853-64-19 04:54:000.2[facility]UR[facility] AND ZTGLH4137-29-57 04:54:00Negative *NA*(01/24/17 11:54 PM)[facility] STOOL 2017-01-25 04:54:00 Test Item Value Reference Range Interpretation Comments UA pH (test code = UA pH) 5.5 1 5.0-8.0 [facility] AND VWVPY7564-90-77 04:54:00<=1.005 *NA*(01/24/17 11:54 PM)[facility] AND GLAVH3018-02-22 04:54:00Yellow *NA*(01/24/17 11:54 PM)[facility] AND FIFPD0107-08-17 04:54:00Clear (01/24/17 11:54 PM) [facility]annCARDIAC JZPMGEB2566-28-42 02:44:0062[facility] HermannCARDIAC MUBPRMV6994-17-27 02:44:00<1.0[facility] HermannCARDIAC BQBBNLR2090-79-71 02:44:00<0.02[facility] HermannCARDIAC JECPRYH2743-69-87 02:44:00<1.6 [facility]annCHEM CWMBQ7916-40-41 02:44:0014[facility] HermannCHEM PANEL 2017-01-25 02:44:000.5[facility] HermannCHEM TLNUA6261-27-89 02:44:0037[facility] HermannCHEM JAKNC0179-90-18 02:44:73778Sguxjlae HermannCHEM SVEMP5097-17-97 02:44:000.7[facility] HermannCHEM YECAD8366-65-27 02:44:004.7[facility] HermannCHEM VBGHJ1573-14-49 02:44:003.5[facility] HermannCHEM MBYUG9181-79-29 02:44:0016 [facility]annCHEM TDTGB2490-19-44 02:44:008.2[facility] HermannCHEM PANEL 2017-01-25 02:44:32297Ltatftrr UjyhgxiCZHRIGTYZE7340-49-28 02:44:0013.7[facility] UqqybogLVDVOEEUJT8044-11-12 02:44:0041.6[facility] YovskbbYAHOCMGZEO9607-98-95 02:44:0083.6[facility] KbjotuwUHGJQLMXOC2026-17-37 02:44:00 Test Item Value Reference Range Interpretation Comments MCH (test code = MCH) 27.5 pg 27.0-31.0 [facility] RrcfjewNIIZJQLDTL1444-40-64 02:44:0032.9[facility] HermannHEMATOLOGY 2017-01-25 02:44:0013.6[facility] LtiahesOUOSZIVTIA5099-42-39 02:44:23503Qdbvpbwr NwyhitxPOBBBZVBQN6750-38-37 02:44:008.1[facility] MhagighAVQAPVMUMR4814-86-20 02:44:005.8[facility] OxmpqkzEQRQCIEZEW0683-20-93 02:44:004.97[facility] ELAQIOXXUZ4783-42-55 02:44:000.4[facility] WzunixeUSQTIQDPBP2547-11-72 02:44:000.7 [facility] SsrspzkZEJTBQARIN2535-09-19 02:44:003.5[facility] HermannHEMATOLOGY 2017-01-25 02:44:007.1[facility] CioramdWLUWTCQKWL8759-64-12 02:44:000.6[facility] TysggiaWGDXHNKRAB5434-50-56 02:44:001.8[facility] HhaifibPCFCAETMSF2478-90-05 02:44:0059.9[facility] FgfdkwwZYYMKBNMTL7023-05-16 02:44:0031.7[facility] URINE WPXTCRO2480-23-35 09:22:00 Test Item Value Reference Range Interpretation [...] S Sulfamethoxazole (test code = 47) POCT-GLUCOSE [id number] 23:15:00 Test Item Value Reference Range Interpretation Comments POC-GLUCOSE METER 227 mg/dL 70-110 H TESTED AT [address] [facility] (test code POINT [facility] [place] = 1538) [address] URINALYSIS W/ BNMKNSBJYQT0535-84-25 22:36:00 Test Item Value Reference Range Interpretation [...] 1663) SOURCE(BEAKER) (test code = 2795) KETONE, [id number] 22:32:00 Test Item Value Reference Range Interpretation Comments KETONES, BLOOD (BEAKER) (test code 0.6 mmol/L <0.4 H = 1103) BLOOD GAS, [id number] 22:30:00 Test Item Value Reference Range Interpretation [...] (test code = 1819) 21.0 % SCREEN, [id number] 22:29:00 Test Item Value Reference Range Interpretation Comments TEST URINE (BEAKER) (test Negative code = 583) TROPONIN [id number] 21:42:00 Test Item Value Reference Range Interpretation [...] CK-MB Reference Range:<5 Normal5-10 Borderline>10 AbnormalCOMPREHENSIVE METABOLIC AIDHE1336-34-30 21:34:00 Test Item Value Reference Range Interpretation [...] S NOT APPLICABLE FOR DIALYSIS PATIEN TS. [id number] 21:32:00 Test Item Value Reference Range Interpretation Comments LIPASE (BEAKER) (test code = 749) 28 U/L 6-51 CBC W/PLT COUNT & AUTO OJOVBUTMJEXC0733-00-76 20:55:00 Test Item Value Reference Range Interpretation [...] L 0.00-0.20 (test code = 417) POCT-GLUCOSE FDLVZ9567-62-75 20:56:00 Test Item Value Reference Range Interpretation Comments POC-GLUCOSE METER 446 mg/dL 70-110 Notified R Diana DALTON/TESTED AT ([facility] (test code [address] = [address] [facility] [address] BEDSIDE GLUCOSE [id number] 15:13:92940Dewyfyme HermannBEDSIDE GLUCOSE XYQAIIM2991-26-95 04:18:54187Sgjyxlnr HmhhsdzYPYQEOFXJ7189-20-05 03:05:000.14 [facility] WypiynwDPDRJSLRY1237-14-30 03:05:008[facility] KsjvqdvLLEVLXPQH0126-88-27 03:05:000.2[facility] VpevftnYNCOZHVHI7901-48-21 03:05:0027[facility]ona XSDHHCIWF7017-78-98 03:05:0013.2[facility] XcovulaXQNJPEVUB3074-84-26 03:05:008.8 [facility] VipkhsaDJBZILSXI9189-01-71 03:05:007.6[facility] HermannCHEMISTRY 2011-11-29 03:05:0016[facility] LbosgvxEHWFBWVKR1536-95-67 03:05:003.8[facility] QkbswlcJWEUFJTGS0255-23-21 03:05:003.8[facility] VzvlofrTBMHLBIRS1500-69-67 03:05:001.0[facility] JfhhoyrAQRBWVSXR7752-38-09 03:05:79387Glfuarml Jona UXVIRRUCJ2552-86-57 03:05:0013[facility] JymmppnMGPPVWPTD0078-37-36 03:05:60560 [facility] QjcndxfMJYUISWAC1299-47-62 03:05:0098[facility] HermannCHEMISTRY 2011-11-29 03:05:000.7[facility] QefreesSRCNSXVVK0559-70-57 03:05:0011[facility] YzzrqaqVBXRTIART5287-67-09 03:05:004.2[facility] MgzcpkoBLJTWXNFC4613-39-35 03:05:02415Nxpqqpbx MuvodxrBXMLMURHKX6092-37-89 03:05:004.41[facility] [place] RSSJTGLKDC5677-46-15 03:05:005.7[facility] OlqbdzxROSBJUXVRX3743-05-42 03:05:00 33.2[facility] ZcfntaeXGJJMGYCNU3539-70-40 03:05:0012.9[facility] HermannHEMATOLOGY 2011-11-29 03:05:0013.8[facility] MxiumviBKJWWKJBPL7899-71-95 03:05:0088.4[facility] EgvilsmDPZWHTDZHW3927-53-15 03:05:00 Test Item Value Reference Range Interpretation Comments MCH (test code = MCH) 29.3 pg 27.0-31.0 N [facility] McqzzveJCHVNKJJBO8671-25-40 03:05:0038.9[facility] HermannHEMATOLOGY 2011-11-29 03:05:007.5[facility] YtpuypyACSHVHWMLH0316-50-40 03:05:44903Fmehvipz HjreticAINDOLMTMQ9802-62-93 03:05:0057.5[facility] HwmgmclLNJZBMMQCV1205-53-13 03:05:000.5[facility] HpakiwtLWNXKFUHJO0481-21-30 03:05:001.5[facility] ROKWBYHNDQ6426-78-14 03:05:005.3[facility] QqmhnyiXVUOQYIJNI3933-65-94 03:05:00 35.2[facility] CfxrxaiHWWJBUUWBX9754-75-22 03:05:002.0[facility] HermannHEMATOLOGY 2011-11-29 03:05:003.3[facility] IktyflzWIYIDFLORY6771-36-59 03:05:000.1[facility] KorpilpWHBGJGHZOR7255-90-90 03:05:000.3[facility] UoynutbZDMNHCZDCC0037-93-46 03:05:000.0[facility] TunilfoGCFWMHKVGM0074-13-85 03:05:00 Test Item Value Reference Range Interpretation Comments UA Spec Grav (test code = UA Spec 1.010 1 N Grav) [facility] VvuganfUAWZBRRIQA7414-79-04 03:05:00 Test Item Value Reference Range Interpretation Comments UA pH (test code = UA pH) 5.5 1 5.0-8.0 N [facility] VprewrmNQXQMZWBTE3004-92-81 03:05:00Yellow *NA*(11/28/2011 22:05:00) [facility] WiveiifVRMBXIIFGT1866-27-13 03:05:00Clear (11/28/2011 22:05:00)[facility] YxfhdxmSAZEJIZXGC1458-06-25 03:05:00Negative (11/28/2011 22:05:00)[facility] JgwewsoQGAGHVVXFX4043-13-54 03:05:00Negative (11/28/2011 22:05:00)[facility] ObfpmxnACOMONEHUI8143-57-94 03:05:000.2[facility] McgbrlkXXEKKILXTR3099-68-26 03:05:00>=1000 mg/dL *ABN*(11/28/2011 22:05:00)[facility] HermannURINALYSIS 2011-11-29 03:05:00Negative mg/dL *NA*(11/28/2011 22:05:00)[facility] DXLZZPEXZY6296-92-53 03:05:00Negative mg/dL (11/28/2011 22:05:00)[facility] CuitucsKWXVCRNNNO5761-04-50 03:05:00Negative (11/28/2011 22:05:00)[facility] YmnahfwBCJGNZIYAM7621-51-36 03:05:00Negative *NA*(11/28/2011 22:05:00)[facility] WibbqkzCRRRVEXXWP9434-08-89 03:05:00Rare /LPF (11/28/2011 22:05:00)[facility] PyxvkgrQYLVSPWDIJ2580-56-94 03:05:00Occasional /HPF (11/28/2011 22:05:00) [facility] XzmjqbpUTYWJGBKJX5539-74-71 03:05:000-2 /HPF (11/28/2011 22:05:00) [facility] DdxznsxAIKEOKELGK6227-59-97 03:05:000-2 /HPF (11/28/2011 22:05:00) [facility] VitmhcrZTQQVUBYAU5213-01-87 03:05:00Performed (11/28/2011 22:05:00) [facility]annBEDSIDE GLUCOSE AJXZDQC1916-92-36 02:45:00>400[facility] HermannBEDSIDE GLUCOSE WYTTJFC6923-07-73 06:10:38189Vkezfbfa HermannBEDSIDE GLUCOSE EUTOEKR6683-46-07 05:04:0094[facility] YelrhvsEZEQLZYUF0726-33-64 03:06:00 72[facility] IvgadnbFYMUDLGIP0234-99-99 03:06:0040[facility] HermannCHEMISTRY 2011-10-25 03:06:007.42[facility] SkgzlirBYOONOPSQ2221-70-98 03:06:000.0[facility] EdpwbmtSERPMGNPV1294-94-96 03:06:00Rm Air (10/24/2011 22:06:00)[facility] WNZOTTHPV7116-44-22 03:06:0095.0[facility] YkeherbTPUZXJAMX5206-74-49 03:06:001 [facility] LdonyutUDNNDVVGB4985-55-10 03:06:0026[facility] HermannCHEMISTRY 2011-10-25 03:05:98648Nnxxkcxf QdzrhlvGHXSRNIOE9224-21-96 03:05:50982Hrfrkncw KfafzplOSDYEHTHC7920-39-49 03:05:0019[facility] YqutumvFHHPRANJT4468-03-58 03:05:008.4[facility] AjoftohCYGHCIXBQ0677-37-51 03:05:06751Hljprrqh [facility] XKPYRGFBV0826-60-82 03:05:88584Ohjpppjd RmbkneeRMCOMAXXH0543-56-07 03:05:003.8 [facility] TapqlbbXUUYUCGSK3870-56-37 03:05:003.7[facility] HermannCHEMISTRY 2011-10-25 03:05:0027[facility] FqwrgsoDYFYGHQNC2169-97-76 03:05:0012.2[facility] PpxjqflXLKUAQUOS6934-06-30 03:05:004.2[facility] KtevvtiJXTVTUJFZ3953-98-91 03:05:000.8[facility] TvsycrpHWUOKDTCW5347-28-66 03:05:49185Wioxduaw [facility] YCMKWNCZK9759-52-37 03:05:0024[facility] UokctjlADNHBNUSX8717-54-17 03:05:007.5 [facility] PeahaapUIHUZLZGE3976-53-74 03:05:0010[facility] HermannCHEMISTRY 2011-10-25 03:05:20111Ziwrnnlu SqhvoeeCENXRLWHD2242-25-06 03:05:000.3[facility] JjobuaqWMFNPTENB2532-93-82 03:05:001.0[facility] ByuvpflMFFDISGVO5449-54-92 03:05:0017[facility] FhhzrxpPCXHSPXQH5535-02-03 03:05:000.22[facility] SPFNSEPHWL3331-79-64 03:05:000.1[facility] UyjryzpXYTVHPLCTP6374-58-97 03:05:002.0 [facility] EbnbznsJLKQDBSIVS6846-23-53 03:05:000.0[facility] HermannHEMATOLOGY 2011-10-25 03:05:000.4[facility] MfhirnmUGVEDEBIGD2891-90-83 03:05:0029.4[facility] BklyixeFVQTOOHQDR6114-33-61 03:05:004.3[facility] QatibqiZGHAKJGQTB9023-22-16 03:05:005.7[facility] DlcshqyLROQILPRUH1022-78-89 03:05:000.4[facility] AHPQTOKXHL8637-25-07 03:05:001.2[facility] KlgmbilQTUJZNWNCW8352-04-42 03:05:00 63.3[facility] NafewalHAFIMGVMWK9162-85-56 03:05:0014.0[facility] HermannHEMATOLOGY 2011-10-25 03:05:73582Xvbxdyak GnsyhflYXZVLVXHWM3798-49-44 03:05:008.0[facility] NbrnambJKMNIORKQA6515-63-32 03:05:0013.3[facility] SednjtgRNGUTWRETM7557-30-72 03:05:0039.4[facility] OgbcmaoIGLQXNTQUF5639-14-57 03:05:0086.2[facility] COAIBVOANK7574-48-41 03:05:00 Test Item Value Reference Range Interpretation Comments MCH (test code = MCH) 29.1 pg 27.0-31.0 N [facility] PqcvhvvRMPKCPQZLX0345-68-94 03:05:0033.8[facility] HermannHEMATOLOGY 2011-10-25 03:05:006.9[facility] ArkcidwCLUJMMKMNK0919-86-05 03:05:004.57[facility] PpsqtedCBFPZPMMHN8709-12-12 03:05:00Positive *ABN*(10/24/2011 22:05:00)[facility] NhhaizpMXURSIIZTX6857-05-70 03:05:00Negative (10/24/2011 22:05:00)[facility] WjvacwsEEXKWUGXZE6511-06-67 03:05:00Negative (10/24/2011 22:05:00)[facility] DbnnmyeEKUDOBHCEH7683-73-33 03:05:00>=1000 mg/dL *ABN*(10/24/2011 22:05:00) [facility]mlrlmwDIWEYYAJPX5204-07-47 03:05:00 Test Item Value Reference Range Interpretation Comments UA pH (test code = UA pH) 6.0 1 5.0-8.0 N [facility] RcqvegmRPHGQPYTQF1134-19-13 03:05:00 Test Item Value Reference Range Interpretation Comments UA Spec Grav (test code = UA Spec 1.015 1 N Grav) [facility] YohmimgAPGMIOCJCA8780-79-42 03:05:00Yellow *NA*(10/24/2011 22:05:00) [facility] NlvxanvZYEBWUGPYL9797-58-95 03:05:00Clear (10/24/2011 22:05:00)[facility] WogcpbzIIBHCIODDX7039-74-26 03:05:000.2[facility] LjmbasjNJDAJOASRR8917-92-06 03:05:00Negative *NA*(10/24/2011 22:05:00)[facility] XlpzxsaPTQWRXDYIQ2069-06-75 03:05:00Negative (10/24/2011 22:05:00)[facility] WcbclkwEHZWAGPXGD9111-58-90 03:05:00Negative *NA*(10/24/2011 22:05:00)[facility] OznyjnzVTHIKKMASN3676-98-49 03:05:00Rare /LPF (10/24/2011 22:05:00)[facility] ZndqareMWGBQEWIVC2401-78-80 03:05:00Moderate /HPF (10/24/2011 22:05:00)[facility] OujddodFIUZJEJATZ3436-90-52 03:05:000-2 /HPF (10/24/2011 22:05:00)[facility] KlwiecfXPJIDBIOCW7508-61-44 03:05:00Performed (10/24/2011 22:05:00)[facility] TvyabniZGSBXJCZBP8103-11-89 03:05:006-10 /HPF *ABN*(10/24/2011 22:05:00)[facility] KhgtedpTVZHDYVBJO1453-13-43 03:05:00Rare /LPF (10/24/2011 22:05:00)[facility] HermannBEDSIDE GLUCOSE TESTING 2011-10-25 02:43:00>400[facility] HermannBEDSIDE GLUCOSE BKTARKD7021-96-41 08:15:24858Jiizrolm HermannBEDSIDE GLUCOSE AGGMLMJ2445-38-59 07:07:00>400 [facility] XkqsvwwMINHZFMUM5346-09-16 05:10:15351Notevjkn HermannCHEMISTRY 2011-05-23 05:10:000.8[facility] AyxpgzgSOXVBCPCE1324-31-36 05:10:0026[facility] UwfzhczPTNALNCGI8352-39-53 05:10:0096[facility] EuihrkkKCHPAAKSB2706-57-30 05:10:003.9[facility] CnknaveDUQDCSGNW8915-63-37 05:10:0012.9[facility] YLCODJACP8060-81-39 05:10:004.0[facility] WuiwkumQODIVHUXY6490-49-77 05:10:007.8 [facility] FkmsvskPNIYEBEKM6882-25-38 05:10:0015[facility] HermannCHEMISTRY 2011-05-23 05:10:37076Tylzjmbj TqbclikENMKCNYBD0440-33-35 05:10:001.1[facility] KozwshoXOWQZANNN8098-20-43 05:10:003.8[facility] CeporcyHYPBMNHLV7544-28-83 05:10:008.6[facility] IaafiwfFNTMMNNCC3429-39-01 05:10:0011[facility] DEHZAXHWO2035-87-98 05:10:000.4[facility] WuobptjZSMMCNQJZ7756-49-09 05:10:96948 [facility] WjzronaYKFNGLDLF7178-85-93 05:10:0015[facility] HermannCHEMISTRY 2011-05-23 05:10:47119Aqgzrzac VvrkzgyJQPWBVDRU2987-02-39 05:10:0012[facility] RdcohqxSPPLJDEUD1516-85-71 05:10:62814Ywidtzem WgacoauWXBDUVBXS1388-70-80 05:10:000.36[facility] GfqbyzuQATUXAHVST9528-19-87 05:10:71323Fowsakcx [facility] BRADLUMZKL0013-53-32 05:10:0034.3[facility] PxtuibuUCJBAHWOLI9100-81-70 05:10:00 7.9[facility] PypgqnaBHMVQRRAOO4994-47-13 05:10:0013.0[facility] HermannHEMATOLOGY 2011-05-23 05:10:00 Test Item Value Reference Range Interpretation Comments MCH (test code = MCH) 29.5 pg 27.0-31.0 N [facility] WyuxjejYFYJADCYDM8848-31-44 05:10:0038.1[facility] HermannHEMATOLOGY 2011-05-23 05:10:0086.0[facility] CymjuxjQCJSPIIBTA5707-17-03 05:10:004.43[facility] OkmqasuIDBVUHNVVI2720-74-06 05:10:005.9[facility] UlxgjqlZIKYZMVJBB6712-86-20 05:10:0014.0[facility] LcunaycDKCHWJJLCJ8274-83-76 05:10:000.0[facility] UWOYKBDPVD6931-66-27 05:10:001.7[facility] HlztubhMXOCEEYUGV4934-00-70 05:10:000.3 [facility] DrigungULOGLPJORO8458-78-34 05:10:000.6[facility] HermannHEMATOLOGY 2011-05-23 05:10:003.8[facility] QosgwmuLQLSJFLSLJ3836-14-72 05:10:000.1[facility] GmcaltfOZVBAZTSKD8689-42-85 05:10:004.7[facility] RzjvaniHIUPXOGTVU8634-11-07 05:10:0028.9[facility] RffgikxOAPSIQSBJT9194-08-36 05:10:002.5[facility] IKYNLHOZDP7146-63-73 05:10:0063.3[facility] FvpfzjxPAIAZHAHSH0297-90-83 05:10:000- 2 /HPF (05/22/2011 23:10:00)[facility] HygauyoVSWABEZHQQ3642-54-72 05:10:00 Occasional /HPF (05/22/2011 23:10:00)[facility] JrptooeQBNTDFPYCN0666-80-67 05:10:00Negative (05/22/2011 23:10:00)[facility] MxihvwpGVRTEIWDFI7075-86-14 05:10:00Negative *NA*(05/22/2011 23:10:00)[facility] KzxaxqeSGBONAWINE7426-97-27 05:10:00>=1000 mg/dL *ABN*(05/22/2011 23:10:00)[facility] HermannURINALYSIS 2011-05-23 05:10:00Negative (05/22/2011 23:10:00)[facility] HermannURINALYSIS 2011-05-23 05:10:00 Test Item Value Reference Range Interpretation Comments UA pH (test code = UA pH) 5.0 1 5.0-8.0 N [facility] HpftlctUGCDOFZBXK7594-51-37 05:10:003-5 /HPF (05/22/2011 23:10:00) [facility] OdejmbkXTQBHSXALX3274-28-17 05:10:00Rare /LPF (05/22/2011 23:10:00) [facility] LatxhauSCLFAPGIAV1192-19-11 05:10:000.2[facility] HermannURINALYSIS 2011-05-23 05:10:00Negative (05/22/2011 23:10:00)[facility] HermannURINALYSIS 2011-05-23 05:10:00Negative *NA*(05/22/2011 23:10:00)[facility] HermannURINALYSIS 2011-05-23 05:10:00Negative (05/22/2011 23:10:00)[facility] HermannURINALYSIS 2011-05-23 05:10:00Performed (05/22/2011 23:10:00)[facility] HermannURINALYSIS 2011-05-23 05:10:00Yellow *NA*(05/22/2011 23:10:00)[facility]annURINALYSIS 2011-05-23 05:10:00Clear (05/22/2011 23:10:00)[facility]annURINALYSIS 2011-05-08 00:16:00Negative (05/07/2011 18:16:00)[facility] HermannURINALYSIS 2011-05-08 00:16:000.2[facility] MysleddVGFTUCWVPY2220-18-78 00:16:00Negative *NA*(05/07/2011 18:16:00)[facility] AeirwgxPDKEFYEXKZ4738-89-12 00:16:00Large *ABN*(05/07/2011 18:16:00)[facility] QxwizydRADOEMRNHX1672-56-60 00:16:006-10 /HPF *ABN*(05/07/2011 18:16:00)[facility] GeogqrxMKWDPTAFRU3628-48-43 00:16:00 Occasional /HPF (05/07/2011 18:16:00)[facility] VxojzdjRRWUMMZOHF5119-82-17 00:16:00Performed (05/07/2011 18:16:00)[facility] JasolytEHIWNFSMCI2401-67-38 00:16:00Few /LPF (05/07/2011 18:16:00)[facility] WwchtiuJLBZKHVKWA2368-50-57 00:16:00Negative (05/07/2011 18:16:00)[facility] FjhofyzEYEKHHBTVK7108-44-77 00:16:0021-50 /HPF *ABN*(05/07/2011 18:16:00)[facility] HermannURINALYSIS 2011-05-08 00:16:00Trace *ABN*(05/07/2011 18:16:00)[facility] 2011-05-08 00:16:00>=1000 mg/dL *ABN*(05/07/2011 18:16:00)[facility] OAABNVIVHS8172-25-14 00:16:00Negative (05/07/2011 18:16:00)[facility] AMGSWIGRDU3941-96-23 00:16:00 Test Item Value Reference Range Interpretation Comments UA Spec Grav (test code = UA Spec 1.010 1 N Grav) [facility] YaevhipXIOVIRWDTZ6674-33-80 00:16:00Clear (05/07/2011 18:16:00)[facility]ermzrhYXUBCYUMRQ8333-51-58 00:16:00 Test Item Value Reference Range Interpretation Comments UA pH (test code = UA pH) 6.0 1 5.0-8.0 N [facility] WnzvclkWOOVFXWGCK9829-33-63 00:16:00Yellow *NA*(05/07/2011 18:16:00) [facility] GWOFYWB8977-31-71 06:51:90287Nuoztbys [facility] UPHCIVPSC1652-92-98 04:20:00Negative (04/19/2011 22:20:00)[facility] DNBPMWWZY6198-78-97 04:20:004.1[facility] KqgylfjYDTQRZZDB8940-43-46 04:20:0015 [facility] HdgzeqpFZYDXCFYV9813-92-07 04:20:009.2[facility] HermannCHEMISTRY 2011-04-20 04:20:0096[facility] EwiojnjVVMNUEJIL2889-74-08 04:20:0016.2[facility] UijnkbvGXEJBUSOC7983-16-28 04:20:0024[facility] AbrptdgFCQPECCXJ2478-37-07 04:20:004.0[facility] LfucfrbRRNKUEQYL8552-50-69 04:20:008.1[facility] NWCESFNZT3276-06-38 04:20:000.4[facility] FezjdonBZUNUYJWV6382-36-22 04:20:0092 [facility] YrdwqpsXWJFWHGFX2223-09-95 04:20:004[facility] HpwatjfHEJGCIIAU4376-77-36 04:20:0014[facility] GeyilajVBOZZWGRJ3965-18-59 04:20:001.0[facility] BRCINPKDI2989-97-88 04:20:88971Hipslpho EgxnginGPVWUBLSK2368-81-59 04:20:000.8 [facility] MqfaepfZGWFPYJJX8103-75-71 04:20:0012[facility] HermannCHEMISTRY 2011-04-20 04:20:004.2[facility] YfzadtkJCEGTXFRA9821-13-38 04:20:66182Unhafzfs ZfpfbstQEMYVTJYG1020-20-71 04:20:78042Tmpkkyvg JgfaxawLAWFPTHUC0291-53-27 04:20:0070[facility] CmjeiqbRAFETCSRDK7905-61-65 04:20:007.9[facility] AKHIYCYLGY8971-32-21 04:20:76310Aourqwpj WaickdeOPYWCHXGIO3207-93-02 04:20:00 4.54[facility] XxpwqwqOAGDTLAKVO9306-03-69 04:20:0013.3[facility] HermannHEMATOLOGY 2011-04-20 04:20:00 Test Item Value Reference Range Interpretation Comments MCH (test code = MCH) 29.3 pg 27.0-31.0 N [facility] TwbfifaTJTUYCRMII3489-27-53 04:20:0033.9[facility] HermannHEMATOLOGY 2011-04-20 04:20:0014.0[facility] DhkrgubQPJBHYOLTZ2068-90-32 04:20:0039.3[facility] YnbcjvsXWIDNJNZIJ4838-09-58 04:20:0086.5[facility] GiwtvdaAUYOXAMYXB7515-85-29 04:20:008.6[facility] MpfoggrGGEDTIQTHN5494-18-14 04:20:000.1[facility] JQUSMBIKYC3246-24-38 04:20:000.1[facility] PepkhtbTOPUXRDVTW2851-10-27 04:20:000.9 [facility] VhhowryIBBOMNCGXO6518-02-01 04:20:0019.9[facility] HermannHEMATOLOGY 2011-04-20 04:20:005.4[facility] BcmezjyYOWOUJDBRW6506-42-01 04:20:0073.1[facility] SbqwuzgZLYCZAKIPQ8607-26-46 04:20:001.7[facility] WrqvkzeMOEHVACYXL3505-74-37 04:20:000.5[facility] IztsozzBZEXRSDSRY5626-39-34 04:20:000.7[facility] EEINAIPZLJ1999-35-40 04:20:006.3[facility] QsfivrfFFXNQDCUIO5211-18-33 02:29:00 Negative *NA*(04/19/2011 20:29:00)[facility] AenpqgoQEXEFAWFLB1755-72-02 02:29:00 Negative *NA*(04/19/2011 20:29:00)[facility] MxjmswtMLLBFVTFGE0664-76-61 02:29:00 Negative (04/19/2011 20:29:00)[facility] MphpwfrYJUSQHUNSA9088-76-48 02:29:00 Negative (04/19/2011 20:29:00)[facility] AwzubdtZGEYJVLMFX9712-40-56 02:29:00 Test Item Value Reference Range Interpretation Comments UA pH (test code = UA pH) 6.0 1 5.0-8.0 N [facility] PgfcbgtMXAGJAGCIN9037-68-18 02:29:00>=1000 mg/dL *ABN*(04/19/2011 20:29:00)[facility] HhsyrtvROLQNDKFXD1470-06-22 02:29:00Performed (04/19/2011 20:29:00)[facility] IrnxgpzHXDZOQEHQK7992-10-24 02:29:00Negative (04/19/2011 20:29:00)[facility] KfhhgzbARJPOMZIWC2814-49-25 02:29:000.2[facility] GNXJDQRWRR9867-31-25 02:29:00Negative (04/19/2011 20:29:00)[facility] ZMUSJOWXAM2757-95-15 02:29:00Occasional /HPF (04/19/2011 20:29:00)[facility] KczoahyBNFEMVGNCI8901-93-30 02:29:00Occasional /LPF (04/19/2011 20:29:00) [facility] QrespfkCLOPURMHQC8858-08-41 02:29:003-5 /HPF (04/19/2011 20:29:00) [facility] SnqmsurUFPXTJBYAQ8185-93-65 02:29:000-2 /HPF (04/19/2011 20:29:00) [facility] UwsjijnQASVLXLGBE7179-43-15 02:29:00Clear (04/19/2011 20:29:00)[facility] ZktgntuHQYPPPHFGW7724-21-79 02:29:00Yellow *NA*(04/19/2011 20:29:00)[facility] HermannBEDSIDE GLUCOSE TUXIIJV4008-24-70 05:47:48245Eumefllq HermannCHEMISTRY 2011-03-26 02:45:00<3[facility] XxrpuvnOPCIZCENK1019-29-45 02:45:009.2[facility] VwhjzkgOJZRTSEZA1238-04-17 02:45:0014.0[facility] TaggligDHBYPCEQJ9045-62-15 02:45:0025[facility] QommxmfEMDSRQNRV1447-25-33 02:45:0097[facility] OFKHMZROK9785-72-50 02:45:004.0[facility] RdbfcbuMEKUQSYMR7669-92-83 02:45:000.7 [facility] DtmjfoxGXLWHUHFQ5884-50-67 02:45:95134Cbrthcmc HermannCHEMISTRY 2011-03-26 02:45:000.5[facility] ZauvimgDEQEBJORC1195-84-21 02:45:0069[facility] SsypjzkMYSNTANBQ3389-93-80 02:45:0014[facility] FnlhhlqUZAUCDGJU4474-94-10 02:45:003.9[facility] EzbwgsrYWRFUBPHI5707-36-17 02:45:007.8[facility] YQUMTEUQM0751-28-32 02:45:0019[facility] CpzahyiTZMBDOEZL6337-29-46 02:45:001.0 [facility] FcmcidsAACMEBVBT6083-89-95 02:45:003.9[facility] HermannCHEMISTRY 2011-03-26 02:45:0013[facility] KwopjsyNBSLDMGBE1995-34-10 02:45:65761Fssdujjd YytmvzoBCOFJIJCM2481-28-27 02:45:68995Oscfjucq RnrgjcyPCKBOYUBBI0074-56-62 02:45:0012.7[facility] GwcokfsZUNWHYZOLQ1815-99-96 02:45:0014.0[facility] JVREPPAMTV7375-78-39 02:45:0036.9[facility] NfdqdrbAXVZLSQFTJ8962-08-11 02:45:00 85.5[facility] OuolmebRNRYUXVJLU7852-25-64 02:45:00 Test Item Value Reference Range Interpretation Comments MCH (test code = MCH) 29.5 pg 27.0-31.0 N [facility] QnyyqmvEKXPWBEFDK3271-33-14 02:45:0034.5[facility] HermannHEMATOLOGY 2011-03-26 02:45:73104Qcwoqprb GfutgfnVLEMFQMKNL1938-38-73 02:45:008.2[facility] FizuvivEVFSLRFSXS1021-98-01 02:45:006.9[facility] LqsyconANIMYWLHHK4458-22-01 02:45:004.32[facility] KvnmvdkVKACEUXUPE9378-92-30 02:45:000.5[facility] YEQCJXZNWD5821-09-70 02:45:004.6[facility] BtcsidbBQTZIFVCAL8421-87-01 02:45:001.9 [facility] SinchpeBGAZPGAVGR7399-64-79 02:45:000.3[facility] HermannHEMATOLOGY 2011-03-26 02:45:000.1[facility] MzfwvqtLCTVEHSRJV2310-20-00 02:45:000.0[facility] SphslnaQPNNHZKLTA1991-89-14 02:45:0027.2[facility] LeugjcwRGHTPCLXJS4716-91-31 02:45:0066.3[facility] RipwtvrYEMWJLNOXW4337-16-48 02:45:004.8[facility] YQRNKZCQDO2130-42-77 02:45:001.2[facility] NwuxwdxOFXFSNERUT1159-46-26 02:00:00 Occasional /HPF (03/25/2011 20:00:00)[facility] LcjtqtqLAVYJYAWYB5751-75-78 02:00:00Occasional /HPF *ABN*(03/25/2011 20:00:00)[facility] HermannURINALYSIS 2011-03-26 02:00:00Rare /LPF (03/25/2011 20:00:00)[facility] HermannURINALYSIS 2011-03-26 02:00:000-2 /HPF (03/25/2011 20:00:00)[facility] HermannURINALYSIS 2011-03-26 02:00:000-2 /HPF (03/25/2011 20:00:00)[facility] HermannURINALYSIS 2011-03-26 02:00:00Negative (03/25/2011 20:00:00)[facility] HermannURINALYSIS 2011-03-26 02:00:00Performed (03/25/2011 20:00:00)[facility] HermannURINALYSIS 2011-03-26 02:00:00Negative (03/25/2011 20:00:00)[facility] HermannURINALYSIS 2011-03-26 02:00:00Negative (03/25/2011 20:00:00)[facility] HermannURINALYSIS 2011-03-26 02:00:000.2[facility] HjzptcoCCSDLTWMJV7773-11-09 02:00:00Yellow *NA*(03/25/2011 20:00:00)[facility] AvvpwtuVUEYLMDPYT4168-32-97 02:00:00Clear (03/25/2011 20:00:00)[facility] RmakyedNPZYTWVSEO6346-45-05 02:00:00Negative *NA*(03/25/2011 20:00:00)[facility] TkneozqJPLLKOMIRN2736-51-81 02:00:00>=1000 mg/dL *ABN*(03/25/2011 20:00:00)[facility] IgcckbyKQTXDKEYHG7274-82-29 02:00:00 Negative *NA*(03/25/2011 20:00:00)[facility] QipybraYSQGNFSVUX9947-95-45 02:00:00 Test Item Value Reference Range Interpretation Comments UA pH (test code = UA pH) 6.0 1 5.0-8.0 N [facility] VgterssBZGWNLRJFS6961-58-99 02:00:00Negative (03/25/2011 20:00:00) [facility] HermannBEDSIDE GLUCOSE LQTIHDI5818-82-00 16:26:21367.0[facility] OHOXOUPHR6398-51-72 15:30:00<0.6[facility] RttmfmpQFXGNKGNM9770-21-21 15:30:00 <0.5[facility] SzymkpxSJOZORQUK9063-18-17 15:30:0077.0[facility] HermannCHEMISTRY 2011-02-11 15:30:0077.0[facility] NwkuviaZSDHWZPNL5112-52-29 15:30:00<0.02 [facility] HermannBEDSIDE GLUCOSE RLFBSJL6476-97-79 12:00:68895.0[facility] GWVDEXHLT0399-66-54 09:29:001.5[facility] UgdzegwWTJHNLVAC2696-96-45 09:29:95485.0 [facility] AqiqcylLTVLMMLOJ4213-02-78 09:29:0011.0[facility] HermannCHEMISTRY 2011-02-11 09:29:007.8[facility] OhfspooGEURWWTPN0161-86-77 09:29:0013.7[facility] HwpbibpQCGORPGCA0592-06-29 09:29:000.6[facility] HnjealfEYUYVKOLL5834-92-13 09:29:46915.0[facility] PkhvhhiPWZJQVXPW2522-73-19 09:29:003.7[facility] KGMTPZTAW0074-12-66 09:29:50348.0[facility] OgvxupnUGLJGZXVF0989-98-44 09:29:00 24.0[facility] DokrqnxLHRHVWTXO0282-56-37 09:29:00<0.02[facility] UQNOTRUEQ7464-68-32 09:29:0071.0[facility] LzhbtbqYSFKRZLXS0062-59-01 09:29:0071.0 [facility] FvmseaaPSMCMDFORV0235-12-02 09:29:007.8[facility]annHEMATOLOGY 2011-02-11 09:29:0014.1[facility] NypgaspWGFFDREEWP8921-09-70 09:29:006.8[facility] ErjpuzmCZOAOUNJJC8029-07-04 09:29:0011.8[facility] EqpvlodGANQGHEJQF5163-81-26 09:29:004.11[facility] PgfzpxfBESMXUVYYI0056-86-03 09:29:0035.3[facility] RUSKRYBVOV1953-16-19 09:29:00 Test Item Value Reference Range Interpretation Comments MCH (test code = MCH) 28.7 pg 27.0-31.0 N [facility] AligztkYBWKJVHBPC2706-43-17 09:29:0085.7[facility]annHEMATOLOGY 2011-02-11 09:29:18082.0[facility] QwjcukkKCWRAOIKTI5040-30-18 09:29:0033.5 [facility] NsuzgvpUEXCHZIITW1561-03-07 09:29:0026.3[facility]annHEMATOLOGY 2011-02-11 09:29:0065.8[facility] GkmhvzjFKXQDCAVLB1959-87-16 09:29:006.1[facility] JisncmcZGCNBQIGXJ7437-88-52 09:29:001.2[facility] MtbaokiWCPJZWPFET9328-81-31 09:29:000.6[facility] NwisnwxOJNBETXULF2165-07-85 09:29:004.5[facility] DGNMEPPEBD3843-45-31 09:29:001.8[facility] DiivdhgSEUWDRDZBS6649-76-72 09:29:000.4 [facility] SzqefawMYNJUDVIYJ7349-12-15 09:29:000.0[facility]annHEMATOLOGY 2011-02-11 09:29:000.1[facility] HermannBEDSIDE GLUCOSE HOERJAP2945-79-68 05:34:00 151.0[facility] WxihpmwSHYSKUDGOZ1103-96-10 03:26:00>=1000 mg/dL *ABN*(02/10/2011 22:26:00) ??[facility] DpwqaafPYLFXGPOYW0471-39-09 03:26:00 Negative mg/dL *NA*(02/10/2011 22:26:00) [facility]ymglhhOFQXOKCEGQ0453-57-24 03:26:00 Test Item Value Reference Range Interpretation Comments UA pH (test code = UA pH) 6.5 1 5.0-8.0 N [facility]fzxpkoBAYTXRSLDN4135-06-78 03:26:00Negative mg/dL (02/10/2011 22:26:00) ??[facility]enQrgtiihSAWLQSOUTD6084-25-05 03:26:00Negative (02/10/2011 22:26:00) ??[facility]enRnureodBEHVQDFZUB1490-56-86 03:26:00Negative (02/10/2011 22:26:00) [facility] CenterDvqukyyZDOKCHDSDU8586-18-09 03:26[facility] BLTITMDXHS8369-94-73 03:26:00Negative (02/10/2011 22:26:00) ??[facility] TVJLUGGKGT4218-23-35 03:26:00Negative *NA*(02/10/2011 22:26:00) [facility] CenterAqiwcizMYMLFDSNKY3872-55-60 03:26:00Clear (02/10/2011 22:26:00) [facility] CenterOtufcbgZIEWIRGBBJ9440-78-55 03:26:00 Test Item Value Reference Range Interpretation Comments UA Spec Grav (test code = UA Spec 1.01 1 N Grav) [facility] CenterZxrgnwyUPZTUFWSUI2463-13-90 03:26:00Yellow *NA*(02/10/2011 22:26:00) ?? [facility] CenterVcghfujMHMMUBPXOV5740-77-80 03:26:000-2 /HPF (02/10/2011 22:26:00) ?? [facility] CenterVsgjpuoGAHGZZOKFJ0480-07-61 03:26:006-10 /HPF *ABN*(02/10/2011 22:26:00) ??[facility] CenterUlolkzrFMYWPBQALX1468-18-78 03:26:00Few /LPF (02/10/2011 22:26:00) ??[facility] CenterKsflzaoZFIZJVHPVR6654-05-65 03:26:00Few /HPF (02/10/2011 22:26:00) ??[facility] DjkdaegIHIOHFFGJJ7527-41-63 03:26:00Occasional /HPF *ABN*(02/10/2011 22:26:00) ??[facility] MhjokwyJGRAQJCVXN1448-10-88 03:26:00 Performed (02/10/2011 22:26:00) ??[facility] ZiqlhxiDRBBNQFAG7342-42-33 03:03:00 Negative *NA*(02/10/2011 22:03:00) ??[facility] XkzmxxcBHFUOUXHL3800-33-92 03:03:00<0.5[facility] TdndbzyDRABJBOOG3877-38-08 03:03:00<0.02[facility] YrbkezxMSRMYOOKS2016-59-34 03:03:007.0[facility] DcbstjiMRRXIHRDU6366-86-66 03:03:004.0[facility] QvczeuoNYUSDUEJU3641-62-98 03:03:007.5[facility] BSBKMWAAK7948-45-74 03:03:00 Test Item Value Reference Range Interpretation Comments A/G Ratio (test code = A/G Ratio) 1.1 1 0.7-1.6 N [facility] RvinmaaUTQECFXSV1448-32-62 03:03:003.5[facility] HermannCHEMISTRY 2011-02-11 03:03:0014.0[facility] OcjiuwgRGIZWSZXU8020-89-61 03:03:000.3[facility] EptwofuCIAAHXWVG4416-54-65 03:03:0069.0[facility] CknnubqWVJSXFFHM8094-38-41 03:03:0022.0[facility] UblblnmBREQCGEDR4601-67-24 03:03:00 Test Item Value Reference Range Interpretation Comments B/C Ratio (test code = B/C Ratio) 20.0 1 6-25 N [facility] BnpiehvKOTGDJTIY3327-08-15 03:03:0096.0[facility] HermannCHEMISTRY 2011-02-11 03:03:008.7[facility] TiizcwiHDXUPLMBS1199-97-11 03:03:0017.3[facility] PmybmfvXVEWHPHBV7752-46-59 03:03:03359.0[facility] UrgluqkEVPEFGTJT9297-43-72 03:03:01097.0[facility] ZwqlxfhVWWOXQFHV3694-22-54 03:03:000.6[facility] RDEMREPSR7109-95-24 03:03:0012.0[facility] TqmnoheJEJZUJMMH2057-74-93 03:03:004.3 [facility] GtuoxgpNZHRLGRQG4165-17-08 03:03:00Negative (02/10/2011 22:03:00) ?? [facility] ZlnnuzaHSEYYVEEIP7107-77-60 03:03:003.9[facility]annHEMATOLOGY 2011-02-11 03:03:002.0[facility] UogktakUFWTBWECAQ7433-78-08 03:03:000.5[facility] QqqcxijDZDRMXHGSF1016-24-10 03:03:000.4[facility] XiecywwDYWRHSHEDS7190-45-52 03:03:000.1[facility] LkavaqxGPDNITMAMU9952-14-20 03:03:0060.9[facility] ACNFPYBXKB2251-37-38 03:03:0031.7[facility] IsqczzkRHRKPVWEUP3628-69-72 03:03:00 1.2[facility] NokvjsnECJQWNIQUY6425-77-22 03:03:005.7[facility]annHEMATOLOGY 2011-02-11 03:03:000.0[facility] TvnckrjDZVGDFRGQT3624-28-19 03:03:00 Test Item Value Reference Range Interpretation Comments PT (test code = PT) 13.9 s 12.0-14.7 N [facility] MamoiugCTUPMCLREX8268-87-87 03:03:00 Test Item Value Reference Range Interpretation Comments PTT (test code = PTT) 28.4 s 22.9-35.8 N [facility] KcustamHANKNMTZFF1582-70-16 03:03:00 Test Item Value Reference Range Interpretation Comments INR (test code = INR) 1.07 1 0.85-1.17 N [facility] AjxiyrtYOSAXJBHEQ8305-01-84 03:03:0033.7[facility]annHEMATOLOGY 2011-02-11 03:03:0014.3[facility] WykzwmvIIUYQZVOTC8915-65-68 03:03:17714.0 [facility] SvvkvswXBMBAAIWBD4104-08-11 03:03:007.9[facility]annHEMATOLOGY 2011-02-11 03:03:0085.9[facility] DgsoajvWIYEOAXBUK8483-28-97 03:03:004.43[facility] KvpqehlRDBZGELUXX2463-55-12 03:03:0038.1[facility] DbtdqptKRXYVIGCLD4343-45-26 03:03:0012.8[facility] PjvqyuiIIQIVBIQHZ3406-59-86 03:03:00 Test Item Value Reference Range Interpretation Comments MCH (test code = MCH) 28.9 pg 27.0-31.0 N [facility] UdrmpjnAEHTHCWNRP9653-44-02 03:03:006.5[facility]annHEMATOLOGY 2011-02-11 03:03:001.1[facility] HermannBEDSIDE GLUCOSE SIQIQAN6183-17-18 16:39:00 175.0[facility] HermannBEDSIDE GLUCOSE ZOHQAOL4721-90-08 12:16:0088.0[facility] HermannBEDSIDE GLUCOSE ASZWFSC9555-28-74 11:27:0070.0[facility] HermannCHEMISTRY 2011-01-15 10:45:00<0.6[facility] BtfnjugBORINNRKV7694-65-64 10:45:00<0.5 [facility] ObgnmtcKLBITXMJA2148-05-46 10:45:00<0.02[facility] HermannCHEMISTRY 2011-01-15 10:45:0088.0[facility] EpkinboRSPJKBSEI6823-35-16 10:45:000.6[facility] SodohzaONVUSNFUO8049-64-95 10:45:003.4[facility] QiklcalRXZXFDYYT9823-99-93 10:45:74878.0[facility] IvqhwcfFBTTHYIKR4772-07-07 10:45:0013.0[facility] POHAZKVJA9178-30-55 10:45:0025.0[facility] PpfjzpmAHABFFKBQ7299-68-42 10:45:008.0 [facility] RevfntaYAEKEYTJV9486-48-61 10:45:0018.4[facility] HermannCHEMISTRY 2011-01-15 10:45:43978.0[facility] GogxqfmNCSQNMLWE5004-84-81 10:45:76027.0 [facility] CyrhrrsTBMOPSJUU3830-59-82 10:45:0096.0[facility] HermannCHEMISTRY 2011-01-15 10:45:00 Test Item Value Reference Range Interpretation Comments CHD Risk (test code = CHD Risk) 3.8 1 3.90-5.80 L [facility] VpaicyyTTJVPEKHE7407-53-69 10:45:0045.0[facility]Y 2011-01-15 10:45:28152.0[facility] QbuifmuKCGADZFAJ2090-20-38 10:45:90370.0 [facility] AqjxsjfEIZFGFRSK0356-91-67 01:43:00<0.5[facility]annCHEMISTRY 2011-01-15 01:43:00<0.6[facility] DvhjijbNDXHOUYAC5495-59-08 01:43:0083.0 [facility] MuorhjdMFPOYVZBQ5866-17-56 01:43:00<0.02[facility]annCHEMISTRY 2011-01-14 21:36:00Negative (01/14/2011 16:36:00) ??[facility]ann[facility]STRY 2011-01-14 20:36:00<0.6[facility] SblvtmcAEFTZOSGP5817-71-32 20:36:0013.0 [facility] AtahqhmNWUZIPPVD6850-45-95 20:36:00<3.0[facility]annCHEMISTRY 2011-01-14 20:36:000.5[facility] MucnbbqCPXGMDTLG7017-35-60 20:36:003.8[facility] VrfyamcTADZKUGRH9691-61-11 20:36:0017.0[facility] QiglstzNRYKSAGBG2564-64-37 20:36:0071.0[facility] DbbblbgFURIFUWCT2834-36-60 20:36:003.8[facility] Jona UFGUKCWPN7131-29-40 20:36:28027.0[facility] XrvaqtgCLYSVWJAC0767-21-89 20:36:00 22.0[facility] RgobqbvBGUCGYZIU6164-58-20 20:36:0014.8[facility]annCHEMISTRY 2011-01-14 20:36:008.6[facility] PoixvrdDYAZEMIID3103-99-32 20:36:98284.0[facility] VscmfzbYTFBAWWHG4874-92-81 20:36:003.6[facility] FiufuvyULPTTCTCK4961-14-69 20:36:00 Test Item Value Reference Range Interpretation Comments A/G Ratio (test code = A/G Ratio) 1.1 1 0.7-1.6 N [facility] TkuwvsnSVUXHFMLO2374-44-67 20:36:00 Test Item Value Reference Range Interpretation Comments B/C Ratio (test code = B/C Ratio) 11.0 1 6-25 N [facility] FyapotrCWXKQCJYB0445-23-52 20:36:007.4[facility]annCHEMISTRY 2011-01-14 20:36:46133.0[facility] WpemtzpXOEZLUSJH4213-76-69 20:36:009.0[facility] BsymvopMGMXKYBPH0250-27-39 20:36:000.8[facility] YjzaozlUYFCKHDXZ6257-81-28 20:36:00<0.02[facility] ZhuuzteOEMTNFGAB0429-14-51 20:36:00<0.5[facility] WqdjryhALCAIWCPQ4235-42-75 20:36:0078.0[facility] BpbzujgJEXDXCSEJU2093-76-27 20:36:000.3[facility] DkwidarNMMQWXXUYX6536-30-82 20:36:001.7[facility] Varna IYLCDJIGUR7158-14-76 20:36:003.5[facility] ZqndwhnLHWURHNNDR1263-52-22 20:36:000.9 [facility] CwftzipLEBCQFOHGJ8722-08-67 20:36:000.9[facility] HermannHEMATOLOGY 2011-01-14 20:36:000.0[facility] PwrzkhvRYISYMECZS6125-20-79 20:36:000.1[facility] CezwzmwWTJQRXNXSI4111-95-73 20:36:0030.7[facility] UtzauikBBAEHBGDRA4964-98-01 20:36:0063.0[facility] NihlpwtJAHLUQMQDU3395-05-86 20:36:004.5[facility]ona TPBTDRHUGQ6295-02-27 20:36:0014.6[facility] WmhcprgIILBXDCOPY6228-17-30 20:36:00 34.0[facility] YtltdgjAAFVFSXJIL0641-31-21 20:36:008.0[facility]annHEMATOLOGY 2011-01-14 20:36:66823.0[facility] SglkixrCJLBQOWDIF6398-83-38 20:36:00 Test Item Value Reference Range Interpretation Comments MCH (test code = MCH) 28.8 pg 27.0-31.0 [facility]vgwgodMBRQPAMFUG4942-60-38 20:36:0013.2[facility]annHEMATOLOGY 2011-01-14 20:36:004.6[facility] TxofryxZFQMVFJWLL2702-61-97 20:36:0038.9[facility] LzlgyvoHGWCMMDDMX3311-46-08 20:36:0084.6[facility] KuxblteGPPJHNVTJX8709-72-89 20:36:005.6[facility] GgewdqgZVWBWCNTUD3139-78-43 20:36:00 Test Item Value Reference Range Interpretation Comments PT (test code = PT) 13.6 s 12.0-14.7 [facility] CenterMbubnwiJIDZIWCJSU0139-33-45 20:36:00 Test Item Value Reference Range Interpretation Comments PTT (test code = PTT) 30.2 s 22.9-35.8 N [facility] CenterZhppmxfUDUTXWUKMA4989-69-15 20:36:00 Test Item Value Reference Range Interpretation Comments INR (test code = INR) 1.04 1 0.85-1.17 N [facility] CenterPnyujjuBIZBDNSQJF2088-29-26 20:36:001.5[facility]
--- NOTE | 2020-09-06 14:58 | RAD REPORT ---
EXAM DESCRIPTION: CT - Ct Stroke Brain Wo Cont - 09/06/2020 2:48 pm CLINICAL HISTORY: Blurred vision COMPARISON: April 2020 TECHNIQUE: Computed axial tomography of the head was obtained. All CT scans are performed using dose optimization technique as appropriate and may include automated exposure control or mA/KV adjustment according to patient size. FINDINGS: An intracranial bleed is not seen . The ventricles are normal in caliber. No extra-axial fluid collection is noted. Fluid within the sinuses/ mastoids is not seen. IMPRESSION: No acute intracranial abnormality is seen. If patient's symptoms persist MRI of the bra in would be recommended. Dr Brewer of the emergency room was notified at 2:52 p.m. September 06, 2020
[2020-09-06 15:06] LABS: Basophils % 0.6 % (0-1.3); Hematocrit 26.9 % (36.0-45.0); Lymphocytes % 27.1 % (15.3-44.8); MPV 7.2 fL (7.6-11.3)
[2020-09-06 15:09] LABS: Protime INR 1.09
--- NOTE | 2020-09-06 15:10 | RAD REPORT ---
EXAM DESCRIPTION: Marco A Single View09/06/2020 3:04 pm CLINICAL HISTORY: CVA COMPARISON: September 03, 2020 FINDINGS: The lungs appear clear of acute infiltrate. The heart is normal size. PICC line with its tip superior vena cava IMPRESSION: No acute abnormalities displayed
[2020-09-06 15:14] LABS: Potassium 3.8 mmol/L (3.5-5.1)
[2020-09-06] MEDS ORDERED: ALTEPLASE 0 ML IV ONE (15:21)
[2020-09-06] MEDS ORDERED: NA CHLORIDE 0.9% 0 ML ONE (15:21)
--- NOTE | 2020-09-06 15:51 | RAD REPORT ---
EXAM DESCRIPTION: CTHead angio09/06/2020 3:29 pm CLINICAL HISTORY: Right arm numbness COMPARISON: None TECHNIQUE: CT angiogram of the head was obtained. 3D MIPS reconstruction performed. All CT scans are performed using dose optimization technique as appropriate and may include automated exposure control or mA/KV adjustment according to patient size. FINDINGS: The basilar, internal carotid, anterior cerebral, middle cerebral and posterior cerebral a rteries are normal caliber. An aneurysm is not seen. A significant stenosis is not noted. IMPRESSION: Unremarkable CT angiogram head.
[2020-09-06] MEDS ORDERED: ACETAMINOPHEN 325 MG TABLET ONE (16:19)
[2020-09-06] MEDS ORDERED: NA CHLORIDE 0.9% 250 ML ONE (16:41)
[2020-09-06] MEDS ORDERED: ALTEPLASE 100 ML IV ONE (16:41)
--- NOTE | 2020-09-06 16:59 | ER ---
Nurse's Notes [facility] Megan Name: Melissa De Oliveira Age: 55 yrs Sex: Female : 1965 Arrival Date: 09/06/2020 Time: 14:29 Bed 16 Private MD: Diagnosis: Paresthesia of skin-Right forearm and hand Presentation: 09/06 14:36 Chief complaint: Patient states: right arm tingling and weakness that started 1 hour em ago. Coronavirus screen: Client denies travel out of the [place] in the last 14 days. Ebola Screen: Patient negative for fever greater than or equal to 101.5 degrees Fahrenheit, and additional compatible Ebola Virus Disease symptoms Patient denies exposure to infectious person. Patient denies travel to an Ebola-affected area in the 21 days before illness onset. No symptoms or risks identified at this time. Initial Sepsis Screen: Does the patient meet any 2 criteria? No. Patient's initial sepsis screen is negative. Does the patient have a suspected source of infection? No. Patient's initial sepsis screen is negative. Risk Assessment: Do you want to hurt yourself or someone else? Patient reports no desire to harm self or others. Onset of symptoms was September 06, 2020. 14:36 Method Of Arrival: Ambulatory em 14:42 Acuity: DEYA 2 em 14:45 An acute neurological deficit is present. The charge nurse has been notified. The kg patient has been moved to a treatment area. Triage Assessment: 15:02 The onset of the patients symptoms was less than three hours ago. General: Appears in kg no apparent distress. Behavior is calm, cooperative, appropriate for age, quiet. 15:02 The onset of the patients symptoms was September 06, 2020 at 13:30. kg DISPUTE RESOLUTION SPECIALIST: 14:39 LMP N/A - Post-menopause em Stroke Activation: Physician: Stroke Attending; Name: ; Notified At: ; Arrived At: Physician: Chief Stroke Resident; Name: ; Notified At: ; Arrived At: Physician: Stroke Resident; Name: ; Notified At: ; Arrived At: Physician: ED Attending; Name: Daniella; Notified At: 14:42; Arrived At: Physician: ED Resident; Name: ; Notified At: ; Arrived At: Historical: - Allergies: 14:39 Codeine; em 14:39 Ritalin; em 14:39 Tramadol HCl; em - PMHx: 14:39 Diabetes - IDDM; neuropathy; em - PSHx: 14:39 Cholecystectomy; Appendectomy; ; em - Immunization history:: Adult Immunizations. - Social history:: Smoking status: Patient denies any tobacco usage or history of. Screenin:06 Abuse screen: Denies threats or abuse. Denies injuries from another. Nutritional kg screening: No deficits noted. Tuberculosis screening: No symptoms or risk factors identified. Fall Risk Fall in past 12 months (25 points). No secondary diagnosis (0 pts). IV access (20 points). Ambulatory Aid- None/Bed Rest/Nurse Assist (0 pts). Gait- Normal/Bed Rest/Wheelchair (0 pts) Mental Status- Oriented to own ability (0 pts). Total Muniz Fall Scale indicates No Risk (0-24 pts). Assessment: 14:42 Reassessment: code stoke called. em 14:44 Reassessment: wheeled to CT via wheelchair by me. em 15:00 Reassessment: Dr Brewer at the bedside. sv 15:05 VAN Scoring: Arm Drift: Patients demonstrates NO arm weakness. Patient is VAN Negative. kg Visual Disturbance: No visual disturbance noted. Aphasia: No aphasia noted. Neglect: No neglect noted. The patient has not been NPO before screening. The patient is currently on the following diet: Diabetic The patient is alert, and able to follow commands. The patient does not exhibit slurred or garbled speech. The patient is not exhibiting difficulty speaking. The patient does not exhibit difficulty understanding words. The patient is able to swallow own secretions with no drooling or need for suction. Patient tolerated one teaspoon of water. No drooling, immediate coughing, gurgling, or clearing of the throat was noted. The patient tolerated 90mL of water. No drooling, immediate coughing, gurgling, or clearing of the throat was noted. The patient passed the bedside swallow screening. Oral medications may be given as ordered. Contact Physician for further diet orders. T-PA (Activase) Screening: Contraindications:. Pain: Complains of pain in face Pain currently is 5 out of 10 on a pain scale. at worst was 8 out of 10 on a pain scale. level that patient reports is acceptable is 5 out of 10 on a pain scale. Quality of pain is described as throbbing, Pain began 2 hours ago. Is continuous. Neuro: Level of Consciousness is awake, alert, obeys commands, Oriented to person, place, time, situation, Reports numbness in right antecubital area, dorsal aspect of right forearm, right wrist, right hand, right elbow and palmar aspect of right forearm. Cardiovascular: No deficits noted. Heart tones S1 S2 Capillary refill < 3 seconds. Respiratory: No deficits noted. Airway is patent Respiratory effort is even, unlabored, relaxed, Respiratory pattern is regular, Breath sounds are clear bilaterally. GI: No deficits noted. : No deficits noted. EENT: No deficits noted. Derm: No deficits noted. Musculoskeletal: No deficits noted. 19:19 General: Appears in no apparent distress. Behavior is calm, cooperative, appropriate wh for age. 19:20 Neuro: Level of Consciousness is awake, alert, obeys commands, Oriented to person, wh place, time, situation, Heating And Ventilating Tender are equal bilaterally Moves all extremities. Gait is steady, Speech is normal, Facial symmetry appears normal, Pupils are PERRLA, Intact. Cardiovascular: Heart tones S1 S2. Respiratory: Airway is patent Respiratory effort is even, unlabored, Respiratory pattern is regular, symmetrical. GI: Abdomen is flat, non-distended. : No signs and/or symptoms were reported regarding the genitourinary system. EENT: No deficits noted. Derm: Skin is intact, is healthy with good turgor, Skin is pink, warm \T\ dry. normal. Musculoskeletal: Circulation, motion, and sensation intact. 20:05 The patient has not been NPO before screening. The patient is alert, and able to follow wh commands. The patient does not exhibit slurred or garbled speech. The patient is not exhibiting difficulty speaking. The patient is able to swallow own secretions with no drooling or need for suction. Patient tolerated one teaspoon of water. No drooling, immediate coughing, gurgling, or clearing of the throat was noted. The patient tolerated 90mL of water. No drooling, immediate coughing, gurgling, or clearing of the throat was noted. The patient passed the bedside swallow screening. Oral medications may be given as ordered. Contact Physician for further diet orders. Provider notified of bedside swallow screening results: José Miguel Lacey EDUCATIONAL MANAGER-C. Vital Signs: 14:36 Pulse 100; Resp 18; Temp 97.8; Pulse Ox 100% on R/A; Weight 44.45 kg; Height 5 ft. 4 em in. (162.56 cm); Pain 0/10; 14:41 BP 104 / 56; em 15:51 BP 125 / 56; kg 16:00 BP 124 / 78; kg 16:15 BP 146 / 75; kg 16:23 Weight 45.45 kg; Height 5 ft. 4 in. (162.56 cm); kg 16:25 BP 146 / 59; kg 16:30 BP 148 / 64; Pulse 87; Resp 16; Pulse Ox 100% on R/A; kg 16:45 BP 148 / 66; Pulse 85; Resp 17; Pulse Ox 100% ; kg 16:55 BP 145 / 60; Pulse 85; Resp 14; Pulse Ox 100% on R/A; kg 17:00 BP 144 / 67; Pulse 85; Resp 17; Pulse Ox 100% ; Pain 7/10; kg 17:10 BP 148 / 59 LA Supine (auto/reg); Pulse 84; Resp 12; Pulse Ox 100% on R/A; kg 17:25 BP 148 / 62 LA Supine (auto/reg); Pulse 83; Resp 12; Pulse Ox 100% on R/A; kg 17:40 BP 146 / 68; Pulse 89; Resp 11; Pulse Ox 100% on R/A; kg 17:55 BP 125 / 76; Pulse 86; kg 18:10 BP 147 / 79; Pulse 79; kg 18:25 BP 117 / 62; Pulse 84; kg 18:40 BP 138 / 65; Pulse 78; kg 19:10 BP 132 / 64; Pulse 77; kg 16:23 Body Mass Index 17.20 (45.45 kg, 162.56 cm) kg NIH Stroke Scale Scores: 15:05 NIHSS Score: 1 kg 09/07 07:04 NIHSS Score: 1 kdr ED Course: 09/06 14:29 Patient arrived in ED. ds1 14:39 Arm band placed on. em 14:42 Baron Brewer MD is Attending Physician. kdr 14:46 Triage completed. em 14:48 CT Stroke Brain w/o Contrast In Process Unspecified. EDMS 14:54 Initial lab(s) drawn, by me, sent to lab. Accessed PICC line. Clean \T\ dry. Dressing sv intact. Good blood return. Flushes easily. 14:55 EKG done, by ED staff, reviewed by Baron Brewer MD. sv 14:58 Patient has correct armband on for positive identification. Placed in gown. Bed in low mh5 position. Call light in reach. Side rails up X 1. Warm blanket given. athletic monitor on. Pulse ox on. NIBP on. 15:00 Basic Metabolic Panel Sent. mh5 15:00 CBC with Diff Sent. mh5 15:00 Protime (+inr) Sent. mh5 15:00 Ptt, Activated Sent. mh5 15:03 Stroke CXR 1 View In Process Unspecified. EDMS 15:12 Ckmb Sent. sv 15:12 CPK Sent. sv 15:20 Sonal Donahue, KIRIT is Primary Nurse. ap3 15:29 CT Head Angio In Process Unspecified. EDMS 16:57 Raymond Benitez DO is Hospitalizing Provider. kdr 19:14 Primary Nurse role handed off by Sonal Donahue, KIRIT mw2 19:19 Napoleon Garza, KIRIT is Primary Nurse. 19:22 No provider procedures requiring assistance completed. Patient admitted, IV remains in place. Administered Medications: 16:40 Drug: Alteplase {Co-Signature: sv (Li Garzon RN).} Route: IV Thrombolytics; Rate: kg calculated rate; 19:23 Follow up: Response: No adverse reaction Point of Care Testing: Blood Glucose: 20:05 Blood Glucose: 177 mg/dL; Ranges: Outcome: 16:58 Decision to Hospitalize by Provider. kdr 19:22 Admitted to ER Hold. Please see [facility] for further documentation. 19:22 Condition: stable 19:22 Instructed on the need for admit. 09/07 04:27 Admitted to ICU accompanied by nurse, via stretcher, room Treatment room, with chart, Report called to ICU Nurse Condition: stable Instructed on the need for admit. 04:27 Patient left the ED. NIH Stroke Scale - NIH Stroke Score Date: 09/06/2020 Time: 15:05 Total Score = 1 1a. Level of Consciousness (LOC) - 0(Alert) 1b. Level of Consciousness (LOC) (Year \T\ Age) - 0(Both) 1c. LOC Commands (Open \T\ Closes Eyes/Electric Frying Pan Repairer) - 0(Both) 2. Best Gaze (Lateral Gaze Paresis) - 0(Normal) 3. Visual Field Loss - 0(No visual loss) 4. Facial Palsy - 0(Normal) 5a. Left Arm: Motor (10-second hold) - 0(No drift) 5b. Right Arm: Motor (10-second hold) - 0(No drift) 6a. Left Leg: Motor (5-second hold - always test supine) - 0(No drift) 6b. Right Leg: Motor (5-second hold - always test supine) - 0(No drift) 7. Limb Ataxia (finger/nose \T\ heel/borden - test with eyes open) - 0(Absent) 8. Sensory Loss (pinprick arms/legs/face) - 1(Mild to moderate loss) 9. Best Language: Aphasia (description/naming/reading) - 0(No aphasia) 10. Dysarthria (speech clarity - read or repeat words) - 0(Normal) 11. Extinction and Inattention (visual/tactile/auditory/spatial/personal) - 0(No abnormality) Initials: kg NIH Stroke Scale - NIH Stroke Score Date: 09/07/2020 Time: 07:04 Total Score = 1 1a. Level of Consciousness (LOC) - 0(Alert) 1b. Level of Consciousness (LOC) (Year \T\ Age) - 0(Both) 1c. LOC Commands (Open \T\ Closes Eyes/Electric Frying Pan Repairer) - 0(Both) 2. Best Gaze (Lateral Gaze Paresis) - 0(Normal) 3. Visual Field Loss - 0(No visual loss) 4. Facial Palsy - 0(Normal) 5a. Left Arm: Motor (10-second hold) - 0(No drift) 5b. Right Arm: Motor (10-second hold) - 0(No drift) 6a. Left Leg: Motor (5-second hold - always test supine) - 0(No drift) 6b. Right Leg: Motor (5-second hold - always test supine) - 0(No drift) 7. Limb Ataxia (finger/nose \T\ heel/borden - test with eyes open) - 0(Absent) 8. Sensory Loss (pinprick arms/legs/face) - 1(Mild to moderate loss) 9. Best Language: Aphasia (description/naming/reading) - 0(No aphasia) 10. Dysarthria (speech clarity - read or repeat words) - 0(Normal) 11. Extinction and Inattention (visual/tactile/auditory/spatial/personal) - 0(No abnormality) Initials: kdr Signatures: Dispatcher [employer] Li [place], KIRIT BETH sv Baron Brewer MD MD [facility] Brent Mayfield RN RN Shy Nelson ds1 Shruthi Hernandez [facility] Napoleon Garza RN RN Sonal Donahue RN RN ap3 Nehal Umaña 2 Alejandra Milan kg Li Garzon RN sv Corrections: (The following items were deleted from the chart) 09/06 15:00 14:59 Initial lab(s) drawn, by ED staff, sent to lab. EKG done, by ED staff, sv reviewed by Baron Brewer MD mh5 15:03 14:42 Acuity: DEYA 3 em em 17:06 16:51 CORONAVIRUS+MR.LAB.BRZ drawn and sent. tim MCKEON
--- NOTE | 2020-09-06 16:59 | EDPHYS ---
Physician Documentation [facility] Name: Melissa De Oliveira Age: 55 yrs Sex: Female : 1965 Arrival Date: 09/06/2020 Time: 14:29 Bed 16 Private MD: ED Physician Baron Brewer HPI: 09/07 07:04 This 55 yrs old Female presents to ER via Ambulatory with complaints of R Arm kdr Numbness, Weakness. 07:04 The patient presents to the emergency department with paresthesias of the right upper kdr extremity, that is mild. Onset: The symptoms/episode began/occurred suddenly, 1 hour(s) ago. Context: occurred on a street or driveway. Associated signs and symptoms: The patient has no apparent associated signs or symptoms. Severity of symptoms: At their worst the symptoms were very mild in the emergency department the symptoms have improved mildly. Patient's baseline: Neuro: alert and fully oriented, Motor: no deficits, The patient has had similar s/s in the last few days. Was seen here within the last two days for the same problem. Current symptoms: Still has residual paresthesia in right arm and hand. The patient has experienced similar episodes in the past, a few times. The patient has been recently seen by a physician: The patient has been recently seen at the [facility] Emergency Department, yesterday. BIRTHING NURSE: 09/06 14:39 LMP N/A - Post-menopause em Historical: - Allergies: 14:39 Codeine; em 14:39 Ritalin; em 14:39 Tramadol HCl; em - PMHx: 14:39 Diabetes - IDDM; neuropathy; em - PSHx: 14:39 Cholecystectomy; Appendectomy; ; em - Immunization history:: Adult Immunizations. - Social history:: Smoking status: Patient denies any tobacco usage or history of. ROS: 09/07 07:04 Constitutional: Negative for fever, chills, and weight loss, Eyes: Negative for injury, kdr pain, redness, and discharge, ENT: Negative for injury, pain, and discharge, Neck: Negative for injury, pain, and swelling, Cardiovascular: Negative for chest pain, palpitations, and edema, Respiratory: Negative for shortness of breath, cough, wheezing, and pleuritic chest pain, Abdomen/GI: Negative for abdominal pain, nausea, vomiting, diarrhea, and constipation, Back: Negative for injury and pain, : Negative for injury, bleeding, discharge, and swelling, MS/Extremity: Negative for injury and deformity, Skin: Negative for injury, rash, and discoloration, Psych: Negative for depression, anxiety, suicide ideation, homicidal ideation, and hallucinations, Allergy/Immunology: Negative for hives, rash, and allergies, Endocrine: Negative for neck swelling, polydipsia, polyuria, polyphagia, and marked weight changes, Hematologic/Lymphatic: Negative for swollen nodes, abnormal bleeding, and unusual bruising. Neuro: Positive for numbness, change in sensation to right arm from the elbow down, Negative for altered mental status, dizziness, gait disturbance, headache, hearing loss, loss of consciousness, seizure activity, speech changes, syncope, near syncope, tingling, tinnitus, tremor, visual changes, weakness. Exam: 07:04 Constitutional: This is a well developed, well nourished patient who is awake, alert, kdr and in no acute distress. Head/Face: Normocephalic, atraumatic. Eyes: Pupils equal round and reactive to light, extra-ocular motions intact. Lids and lashes normal. Conjunctiva and sclera are non-icteric and not injected. Cornea within normal limits. Periorbital areas with no swelling, redness, or edema. Neck: Trachea midline, no thyromegaly or masses palpated, and no cervical lymphadenopathy. Supple, full range of motion without nuchal rigidity, or vertebral point tenderness. No Meningismus. Chest/axilla: Normal chest wall appearance and motion. Nontender with no deformity. No lesions are appreciated. Cardiovascular: Regular rate and rhythm with a normal S1 and S2. No gallops, murmurs, or rubs. Normal PMI, no JVD. No pulse deficits. Respiratory: Lungs have equal breath sounds bilaterally, clear to auscultation and percussion. No rales, rhonchi or wheezes noted. No increased work of breathing, no retractions or nasal flaring. Abdomen/GI: Soft, non-tender, with normal bowel sounds. No distension or tympany. No guarding or rebound. No evidence of tenderness throughout. Back: No spinal tenderness. No costovertebral tenderness. Full range of motion. Skin: Warm, dry with normal turgor. Normal color with no rashes, no lesions, and no evidence of cellulitis. MS/ Extremity: Pulses equal, no cyanosis. Neurovascular intact. Full, normal range of motion. Psych: Awake, alert, with orientation to person, place and time. Behavior, mood, and affect are within normal limits. 07:04 Neuro: Orientation: is normal, Mentation: is normal, Memory: is normal, Cranial nerves: grossly normal, Cerebellar function: is grossly normal, Motor: is normal, Sensation: numbness, that is mild, of the dorsal aspect of right forearm, right wrist, right hand and palmar aspect of right forearm, Gait: not applicable Vital Signs: 09/06 14:36 Pulse 100; Resp 18; Temp 97.8; Pulse Ox 100% on R/A; Weight 44.45 kg; Height 5 ft. 4 em in. (162.56 cm); Pain 0/10; 14:41 BP 104 / 56; em 15:51 BP 125 / 56; kg 16:00 BP 124 / 78; kg 16:15 BP 146 / 75; kg 16:23 Weight 45.45 kg; Height 5 ft. 4 in. (162.56 cm); kg 16:25 BP 146 / 59; kg 16:30 BP 148 / 64; Pulse 87; Resp 16; Pulse Ox 100% on R/A; kg 16:45 BP 148 / 66; Pulse 85; Resp 17; Pulse Ox 100% ; kg 16:55 BP 145 / 60; Pulse 85; Resp 14; Pulse Ox 100% on R/A; kg 17:00 BP 144 / 67; Pulse 85; Resp 17; Pulse Ox 100% ; Pain 7/10; kg 17:10 BP 148 / 59 LA Supine (auto/reg); Pulse 84; Resp 12; Pulse Ox 100% on R/A; kg 17:25 BP 148 / 62 LA Supine (auto/reg); Pulse 83; Resp 12; Pulse Ox 100% on R/A; kg 17:40 BP 146 / 68; Pulse 89; Resp 11; Pulse Ox 100% on R/A; kg 17:55 BP 125 / 76; Pulse 86; kg 18:10 BP 147 / 79; Pulse 79; kg 18:25 BP 117 / 62; Pulse 84; kg 18:40 BP 138 / 65; Pulse 78; kg 19:10 BP 132 / 64; Pulse 77; kg 16:23 Body Mass Index 17.20 (45.45 kg, 162.56 cm) kg NIH Stroke Scale Scores: 15:05 NIHSS Score: 1 kg 09/07 07:04 NIHSS Score: 1 kdr MDM: 09/06 16:27 Data reviewed: vital signs, nurses notes, lab test result(s), EKG, radiologic studies. kdr Counseling: I had a detailed discussion with the patient and/or guardian regarding: the historical points, exam findings, and any diagnostic results supporting the discharge/admit diagnosis, lab results, radiology results, the need for outpatient follow up. Physician consultation: Carlos Nunez MD was called at 16:20, was contacted at 16:20, regarding consult, patient's condition, and will see patient in inpatient room, would like medications started, t-PA - given stuttering presentation, could be evolving or sentinel event. ED course: The patient is stable at this time and without complication at this time.. 16:58 Patient medically screened. [facility] 09/07 07:04 Response to treatment: the patient's symptoms have mildly improved after treatment. [facility] 09/06 14:42 Order name: Basic Metabolic Panel; Complete Time: 16:12 [facility] 09/06 14:42 Order name: CBC with Diff; Complete Time: 16:12 [facility] 09/06 14:42 Order name: Protime (+inr); Complete Time: 16:12 [facility] 09/06 14:42 Order name: Ptt, Activated; Complete Time: 16:12 [facility] 09/06 15:08 Order name: Glucose, Ancillary Testing; Complete Time: 16:12 [facility] 09/06 15:09 Order name: Ckmb [facility] 09/06 15:09 Order name: CPK [facility] 09/06 15:09 Order name: Hepatic Function [facility] 09/06 15:09 Order name: Lipase [facility] 09/06 15:09 Order name: Magnesium [facility] 09/06 15:09 Order name: Troponin (emerg Dept Use Only) [facility] 09/06 15:10 Order name: CKMB Creatine Kinase MB [facility] 09/06 15:10 Order name: Creatine Phosphokinase [facility] 09/06 14:42 Order name: CT Stroke Brain w/o Contrast; Complete Time: 16:12 [facility] 09/06 14:42 Order name: Stroke CXR 1 View; Complete Time: 16:12 [facility] 09/06 15:09 Order name: CT Head Angio; Complete Time: 16:12 [facility] 09/06 15:09 Order name: MRI Stroke Protocol [facility] 09/06 17:52 Order name: SARS-COV-2 RT PCR [facility] 09/06 17:56 Order name: Glucose, Ancillary Testing [facility] 09/06 18:07 Order name: Head Brain Wo Cont [facility] 09/06 19:43 Order name: Miscellaneous Test Lab [facility] 09/06 20:14 Order name: Glucose, Ancillary Testing [facility] 09/06 21:23 Order name: RPR [facility] 09/06 21:39 Order name: Troponin I [facility] 09/06 21:39 Order name: Folic Acid, (Folate) [facility] 09/06 21:39 Order name: Vitamin B12 Level [facility] 09/06 21:39 Order name: Vitamin D, 25 (OH), TOTAL [facility] 09/06 21:39 Order name: Hemoglobin A1c [facility] 09/07 03:07 Order name: Troponin I [facility] 09/06 14:42 Order name: EKG; Complete Time: 14:44 [facility] 09/06 14:42 Order name: Accucheck; Complete Time: 15:00 [facility] 09/06 14:42 Order name: Cardiac monitoring; Complete Time: 15:00 [facility] 09/06 14:42 Order name: EKG - Nurse/Tech; Complete Time: 15:00 [facility] 09/06 14:42 Order name: IV Saline Lock; Complete Time: 15:06 [facility] 09/06 14:42 Order name: Labs collected and sent; Complete Time: 15:01 [facility] 09/06 14:42 Order name: NPO; Complete Time: 15:06 [facility] 09/06 14:42 Order name: O2 Per Protocol; Complete Time: 15: [facility] 09/06 14:42 Order name: O2 Sat Monitoring; Complete Time: 15:06 [facility] 09/06 14:43 Order name: Stroke Swallow Screen; Complete Time: 16:55 [facility] 09/06 18:07 Order name: Head Brain Wo Cont [facility] Administered Medications: 09/06 16:40 Drug: Alteplase {Co-Signature: sv (Li Garzon RN).} Route: IV Thrombolytics; Rate: kg calculated rate; 19:23 Follow up: Response: No adverse reaction Point of Care Testing: Blood Glucose: 20:05 Blood Glucose: 177 mg/dL; wh Ranges: Critical Glucose Levels:Adult <50 mg/dl or >400 mg/dl <40 mg/dl or >180 mg/dl Disposition: 09/06/20 16:58 Hospitalization ordered by Raymond Benitez for Observation. Preliminary diagnosis is Paresthesia of skin - Right forearm and hand. - Bed requested for [facility] ER HOLD. - Status is Observation. - Condition is Stable. - Problem is new. - Symptoms have improved. NIH Stroke Scale - NIH Stroke Score Date: 09/06/2020 Time: 15:05 Total Score = 1 1a. Level of Consciousness (LOC) - 0(Alert) 1b. Level of Consciousness (LOC) (Year \T\ Age) - 0(Both) 1c. LOC Commands (Open \T\ Closes Eyes/Groundskeeper Porter) - 0(Both) 2. Best Gaze (Lateral Gaze Paresis) - 0(Normal) 3. Visual Field Loss - 0(No visual loss) 4. Facial Palsy - 0(Normal) 5a. Left Arm: Motor (10-second hold) - 0(No drift) 5b. Right Arm: Motor (10-second hold) - 0(No drift) 6a. Left Leg: Motor (5-second hold - always test supine) - 0(No drift) 6b. Right Leg: Motor (5-second hold - always test supine) - 0(No drift) 7. Limb Ataxia (finger/nose \T\ heel/borden - test with eyes open) - 0(Absent) 8. Sensory Loss (pinprick arms/legs/face) - 1(Mild to moderate loss) 9. Best Language: Aphasia (description/naming/reading) - 0(No aphasia) 10. Dysarthria (speech clarity - read or repeat words) - 0(Normal) 11. Extinction and Inattention (visual/tactile/auditory/spatial/personal) - 0(No abnormality) Initials: kg NIH Stroke Scale - NIH Stroke Score Date: 09/07/2020 Time: 07:04 Total Score = 1 1a. Level of Consciousness (LOC) - 0(Alert) 1b. Level of Consciousness (LOC) (Year \T\ Age) - 0(Both) 1c. LOC Commands (Open \T\ Closes Eyes/Groundskeeper Porter) - 0(Both) 2. Best Gaze (Lateral Gaze Paresis) - 0(Normal) 3. Visual Field Loss - 0(No visual loss) 4. Facial Palsy - 0(Normal) 5a. Left Arm: Motor (10-second hold) - 0(No drift) 5b. Right Arm: Motor (10-second hold) - 0(No drift) 6a. Left Leg: Motor (5-second hold - always test supine) - 0(No drift) 6b. Right Leg: Motor (5-second hold - always test supine) - 0(No drift) 7. Limb Ataxia (finger/nose \T\ heel/borden - test with eyes open) - 0(Absent) 8. Sensory Loss (pinprick arms/legs/face) - 1(Mild to moderate loss) 9. Best Language: Aphasia (description/naming/reading) - 0(No aphasia) 10. Dysarthria (speech clarity - read or repeat words) - 0(Normal) 11. Extinction and Inattention (visual/tactile/auditory/spatial/personal) - 0(No abnormality) Initials: [facility] Signatures: Dispatcher [employer] [facility] Jayne Sauceda RN RN Baron Brewer MD MD [facility] Brent Mayfield RN RN Napoleon Garza RN RN Alejandra Milan Li Garzon RN Corrections: (The following items were deleted from the chart) 17:06 16:43 CORONAVIRUS+MR.LAB.BRZ ordered. [facility] 19:06 16:58 Hospitalization Ordered by Raymond Benitez DO for Observation. Preliminary diagnosis is Paresthesia of skin - Right forearm and hand. Bed requested for Telemetry/MedSurg (observation). Status is Observation. Condition is Stable. Problem is new. Symptoms have improved. [facility] 09/07 04:27 09/06 19:06 09/06/2020 16:58 Hospitalization Ordered by Raymond Benitez DO for Observation. Preliminary diagnosis is Paresthesia of skin - Right forearm and hand. Bed requested for [facility] ER HOLD. Status is Observation. Condition is Stable. Problem is new. Symptoms have improved. dw
[2020-09-06] MEDS ORDERED: ACETAMINOPHEN 500 MG TAB PO PRN (18:12)
[2020-09-06] MEDS ORDERED: ALBUTEROL 2.5 MG/3 ML NEB SOL NEB PRN (18:12)
[2020-09-06] MEDS ORDERED: ONDANSETRON 4 MG/2 ML VIAL IV PRN (18:12)
--- NOTE | 2020-09-06 18:25 | P.HP ---
Certification for Inpatient Patient admitted to: Inpatient With expected LOS: >2 Midnights Patient will require the following post-hospital care: Home Health Services Practitioner: I am a practitioner with admitting privileges, knowledge of patient current condition, hospital course, and medical plan of care. Services: Services provided to patient in accordance with Admission requirements found in Title 42 Section 412.3 of the Code of Federal Regulations Patient History Date of Service: 09/06/20 Reason for admission: Suspected CVA History of Present Illness: Patient is a 55-year-old female with a past medical history significant for DM 2 with neuropathy and GERD who presents with complaint of numbness and tingling on the right forearm and right hand . Patient reported that she was walking around in [employer] today when she started feeling numbness and tingling in her right forearm and right hand She also noted that she started having generalized weakness which started from the neck downwards. Patient reports associated signs and symptoms of headache and dizziness. Patient was noted to be stuttering on presentation to the ER. Patient denies any other signs or symptoms. Symptoms are aggravated or relieved by nothing. Patient decided to present to the hospital for medical evaluation. Of note, patient was in the ER 3 days ago for dizziness, near syncope and generalized weakness. Patient was discharged home from the ER on that visit, Allergies codeine Allergy (Verified 05/23/20 11:53) Hives tramadol Allergy (Verified 03/25/18 03:14) Hives methylphenidate [From Ritalin] Adverse Reaction (Verified 03/25/18 03:14) seizures Home medications list reviewed: No Home Medications: Gabapentin 300 mg PO BID 05/23/20 Insulin Detemir [Levemir Flextouch] 10 unit SQ DAILY 05/23/20 Semaglutide [Ozempic] 0.25 mg SQ Q7D 08/27/20 Famotidine [Pepcid*] 20 mg PO BID PRN #60 tab 08/31/20 Glucerna Shake [Glucerna*] 237 ml PO BID #60 can 08/31/20 Lactobacillus Acidophilus [Acidophilus] 1 each PO TID #90 capsule 08/31/20 - Past Medical/Surgical History Diabetic: Yes -: DM -: Neuropathy -: cholecystectomy -: hysterectomy -: appendectomy -: Psychosocial/ Personal History: Patient is disabled, lives with daughter - Family History Father -: Hypertension, Cancer - Social History Smoking Status: Never smoker Alcohol use: No CD- Drugs: No Caffeine use: No Place of Residence: Home Review of Systems General: Unremarkable Eyes: Unremarkable ENT: Unremarkable Respiratory: Unremarkable Cardiovascular: Unremarkable Gastrointestinal: Unremarkable Genitourinary: Unremarkable Musculoskeletal: Unremarkable Integumentary: Unremarkable Neurological: Weakness, Numbness, Other (Headache ) Lymphatics: Unremarkable Physical Examination - Physical Exam General: Alert, In no apparent distress, Oriented x3 HEENT: Atraumatic, PERRLA, Mucous membr. moist/pink, EOMI, Sclerae nonicteric Neck: Supple, 2+ carotid pulse no bruit, No LAD, Without JVD or thyroid abnormality Respiratory: Clear to auscultation bilaterally, Normal air movement Cardiovascular: No edema, Regular rate/rhythm, Normal S1 S2 Capillary refill: Brisk Gastrointestinal: Normal bowel sounds, No tenderness Musculoskeletal: No clubbing, No tenderness Integumentary: No rashes, No tenderness/swelling Neurological: Normal gait, Abnormal sensation Lymphatics: No axilla or inguinal lymphadenopathy External genitalia: Deferred Rectal: Deferred - Studies Laboratory Data (last 24 hrs) 09/06/20 14:54: PT 12.6 H, INR 1.09, APTT 37.0 H 09/06/20 14:54: WBC 7.20 D, Hgb 9.0 L, Hct 26.9 L, Plt Count 355 09/06/20 14:54: Sodium 139, Potassium 3.8, BUN 15, Creatinine 0.80, Glucose 317 H Assessment and Plan - Plan --Suspected CVA. Neurology consulted. Recommended TPA administration. TPA administered in the ER. Patient will be admitted to ICU. Stroke protocol i nitiated. Physical therapy\speech therapy eval and treat. We hold off on any blood thinners and anticoagulants. Will await further recommendations from neurologist. --Paresthesias of skin. Continue current treatment protocols. MRI brain pending to rule out CVA. Neurologist on board. Further management per neurologist. --DM 2 with neuropathy. BS monitoring with sliding scale insulin. Continue Gabapentin for her neuropathy when appropriate. --GERD. Continue home medication when appropriate. --Anemia of chronic disease. H&H stable. Will continue to monitor hemoglobin and transfuse if less than 7.0. --Headache. Tylenol prn. --DVT prophylaxis with SCDs. Discharge Plan: Home Plan to discharge in: Greater than 2 days - Advance Directives Does patient have a Living Will: No Does patient have a Durable POA for Healthcare: No - Code Status/Comfort Care Code Status Assessed: Yes Code Status: Full Code Critical Care: No
[2020-09-06] MEDS ORDERED: ACETAMINOPHEN 650MG/RECT SUPP PR PRN (19:21)
[2020-09-06] MEDS: INSULIN -REGULAR HUMAN 50 UNIT/0.5 ML ML SQ SCH (21:00)
[2020-09-06 21:10] LABS: ALT/SGPT 14 U/L (12-78); AST/SGOT 11 U/L (15-37); Albumin 3.2 g/dL (3.4-5.0); Alkaline Phosphatase 108 U/L (45-117); Bilirubin Direct < 0.1 mg/dL (0-0.2); Bilirubin Total 0.3 mg/dL (0.2-1.0); CKMB Creatine Kinase MB < 1.0 ng/mL (0.3-3.6); Creatine Phosphokinase 65 U/L (26-192); Lipase 329 U/L (73-393); Protein, Total 6.8 g/dL (6.4-8.2)
[2020-09-06 21:38] LABS: Folic Acid, (Folate) > 20.0 ng/mL (3.1-17.5); Troponin I < 0.02 ng/mL (0.0-0.045)
[2020-09-06] MEDS ORDERED: ACETAMINOPHEN 500 MG TAB ONE (22:32)
[2020-09-06] MEDS ORDERED: INSULIN -REGULAR HUMAN 50 UNIT/0.5 ML ML ONE (22:33)
[2020-09-07 01:54] LABS: RPR (Rapid Plasma Reagin) NON-REACT (NON-REACT)
[2020-09-07 03:43] VITALS: BMI 17.2
[2020-09-07 05:53] LABS: Barbiturates NEGATIVE (NEGATIVE); Benzodiazepines NEGATIVE (NEGATIVE); Cocaine NEGATIVE (NEGATIVE); METHAMPHETAM NEGATIVE (NEGATIVE); Methadone NEGATIVE (NEGATIVE); Opiates NEGATIVE (NEGATIVE); Phencyclidine NEGATIVE (NEGATIVE); THC Cannibis NEGATIVE (NEGATIVE)
[2020-09-07 05:57] LABS: ALT/SGPT 12 U/L (12-78); AST/SGOT 11 U/L (15-37); Alkaline Phosphatase 112 U/L (45-117); BUN Blood Urea Nitrogen 19 mg/dL (7-18); Bicarbonate 32 mmol/L (21-32); Bilirubin Total 0.2 mg/dL (0.2-1.0); Glucose Level 225 mg/dL (74-106); HDL Cholesterol 43 mg/dL (40-60); LDL Cholesterol, Calculated 69 (<130); Potassium 3.6 mmol/L (3.5-5.1); Protein, Total 6.3 g/dL (6.4-8.2); Sodium Level 141 mmol/L (136-145)
[2020-09-07] MEDS ORDERED: LORazepam 2 MG/ML VIAL IV ONE (07:20)
--- NOTE | 2020-09-07 08:30 | RAD REPORT ---
EXAM DESCRIPTION: CT - Head Brain Wo Cont - 09/07/2020 6:25 am CLINICAL HISTORY: R O Bleeding Headache, drowsiness COMPARISON: Head angio dated 09/06/2020; Ct Stroke Brain Wo Cont dated 09/06/2020 TECHNIQUE: All CT scans are performed using dose optimization technique as appropriate and may inclu de automated exposure control or mA/KV adjustment according to patient size. FINDINGS: No intracranial hemorrhage, hydrocephalus or extra-axial fluid collection.No areas of brai n edema or evidence of midline shift. The paranasal sinuses and mastoids are clear. The calvarium is intact. IMPRESSION: No acute intracranial abnormality.
[2020-09-07 08:39] LABS: Absolute Lymphocytes (CBC) 2.5 K/uL (0.7-4.9); Hematocrit 24.3 % (36.0-45.0); Lymphocytes % 36.5 % (15.3-44.8); MPV 7.5 fL (7.6-11.3); Protime INR 1.1; RBC Red Blood Cell Count 2.91 M/uL (3.86-4.86)
[2020-09-07] MEDS ORDERED: INSULIN -REGULAR HUMAN 50 UNIT/0.5 ML ML ONE (08:54)
[2020-09-07] MEDS: INSULIN -REGULAR HUMAN 50 UNIT/0.5 ML ML SQ SCH ×2 (08:59→11:23)
[2020-09-07] MEDS ORDERED: FOLIC ACID 1 MG TABLET PO SCH (09:00)
--- NOTE | 2020-09-07 09:00 | EKG ---
Test Date: 2020-09-06 Test Time: 14:55:49 Resolution Expert: GIL MEASUREMENT RESULTS: Intervals: Rate: 99 MD: 146 QRSD: 70 QT: 376 QTc: 482 [place]: P: 79 MD: 146 QRS: 81 T: 87 INTERPRETIVE STATEMENTS: Normal sinus rhythm Prolonged QT Abnormal ECG Compared to ECG 09/03/2020 19:37:39 Prolonged QT interval now present Sinus tachycardia no longer present T-wave abnormality no longer present Electronically Signed On 09-07-20 08:58:51 CDT by Rogerio Smith
[2020-09-07] MEDS ORDERED: FOLIC ACID 1 MG TABLET ONE (09:01)
[2020-09-07] MEDS ORDERED: POTASSIUM CL SA 10 MEQ TAB PO ONE ×2 (09:25→10:16)
[2020-09-07 09:29] LABS: Blood Morphology Comment NOTED (NOT SEEN); Platelet Estimate ADEQ; Rouleau SLIGHT
[2020-09-07 09:50] VITALS: O2SAT 98
[2020-09-07] MEDS ORDERED: LORazepam 2 MG/ML VIAL ONE (10:15)
--- NOTE | 2020-09-07 11:30 | RAD REPORT ---
EXAM DESCRIPTION: MRI - Brain Wo Cont - 09/07/2020 11:09 am CLINICAL HISTORY: PARESTHESIA TO RT ARM FRO THE ELBOW Headache, drowsiness, CVA symptomology COMPARISON: MRA Head Wo Cont dated 09/07/2020 TECHNIQUE: Multi-sequence, multiplanar MR imaging of the brain was performed without contrast. FINDINGS: No intracranial hemorrhage, hydrocephalus or extra-axial fluid collections. No edema or sh ift of midline structures. No findings to suspect brain mass. DWI is negative for acute CVA. Midline structures are normally formed. Mastoid air cells and paranasal sinuses are clear. IMPRESSION: Negative for acute CVA or other acute intracranial abnormality.
--- NOTE | 2020-09-07 11:37 | RAD REPORT ---
EXAM DESCRIPTION: MRI - MRA Head Wo Cont - 09/07/2020 11:23 am CLINICAL HISTORY: paresthesia to right arm from the elbow down CVA COMPARISON: Head Brain Wo Cont dated 09/07/2020 FINDINGS: 3D noncontrast [id number] MR angiography of the [place] was performed. No aneurysm, flow-limiting stenosis or vascular malformation is seen. Forward flow seen in codominant vertebral arteries. The visualized dural venous sinuses appear patent. IMPRESSION: No significant flow abnormality of the [place] is identified.
[2020-09-07 12:13] VITALS: TEMP 97.4
[2020-09-07 15:07] VITALS: BP 116/66
--- NOTE | 2020-09-07 17:30 | P.DS ---
Admission Date: 09/06/20 Discharge Date: 09/07/20 Disposition: ROUTINE DISCHARGE Discharge Condition: GOOD Reason for Admission: Suspected CVA Consultations: Neurology - Dr. Nunez Procedures: CT Brain (09/06): No acute intracranial abnormality is seen. If patient's symptoms persist MRI of the brain would be recommended. CXR (09/06): The lungs appear clear of acute infiltrate. The heart is normal size. PICC line with its tip superior vena cava CTA Head (09/06): Unremarkable CT angiogram head. CT head (09/07):No acute intracranial abnormality. MRI Brain (09/07): Negative for acute CVA or other acute intracranial abnormality. MRA Brain (09/07): No significant flow abnormality of the [place] is identified Problem list Suspected CVA with paresthesias of right arm DM 2 with neuropathy, non-insulin dependent. GERD Anemia of chronic disease. Brief History of Present Illness: Patient is a 55-year-old female with a past medical history significant for DM 2 with neuropathy and GERD who presents with complaint of numbness and tingling on the right forearm and right hand. Patient reported that she was walking around in [place] today when she started feeling numbness and tingling in her right forearm and right hand She also noted that she started having generalized weakness which started from the neck downwards. Patient reports associated signs and symptoms of headache and dizziness. Patient was noted to be stuttering on presentation to the ER. Patient denies any other signs or symptoms. Symptoms are aggravated or relieved by nothing. Patient decided to present to the hospital for medical evaluation. Of note, patient was in the ER 3 days ago for dizziness, near syncope and generalized weakness. Patient was discharged home from the ER on that visit Hospital Course: Patient symptoms should resolved a few hr after admission, she received t-PA in the ER. Further imaging revealed no ischemic infarct or other acute findings. Neurology was was consulted. Patient was discharged home with prescriptions for aspirin, Plavix, statin, and folic acid. She is to follow up with PCP in 3-5 days. Follow up with neurology in 3-4 weeks. Of note, patient was recently discharged from the hospital steroid she was treated for emphysematous cystitis. She was discharged to continue IV antibiotics, however she was unable to have transportation to have this done. She was then given a prescription for p.o. antibiotics. She is afebrile, no leukocytosis, no urinary symptoms. PICC line was removed prior to discharge. Vital Signs/Physical Exam: Temp Pulse Resp BP Pulse Ox 97.4 F 87 14 116/66 98 09/07/20 12:00 09/07/20 14:00 09/07/20 14:00 09/07/20 14:00 09/07/20 14:00 General: Alert, In no apparent distress, Oriented x3 HEENT: PERRLA, Mucous membr. moist/pink, EOMI, Sclerae nonicteric Neck: Supple Respiratory: Clear to auscultation bilaterally, Normal air movement Cardiovascular: No edema, Normal pulses, Regular rate/rhythm Gastrointestinal: Soft and benign, Non-distended, No tenderness Musculoskeletal: No erythema, No tenderness Integumentary: No rashes Neurological: Normal speech, Normal strength at 5/5 x4 extr, Cranial nerves 3-12 intact, Normal affect Laboratory Data at Discharge: WBC 6.80 K/uL (4.3-10.9) 09/07/20 08:16 Hgb 8.5 g/dL (12.0-15.0) L 09/07/20 08:16 Hct 24.3 % (36.0-45.0) L 09/07/20 08:16 Plt Count 352 K/uL (152-406) 09/07/20 08:16 PT 12.7 SECONDS (9.5-12.5) H 09/07/20 08:16 INR 1.10 09/07/20 08:16 APTT 37.0 SECONDS (24.3-36.9) H 09/06/20 14:54 Sodium 141 mmol/L (136-145) 09/07/20 05:21 Potassium 3.6 mmol/L (3.5-5.1) 09/07/20 05:21 BUN 19 mg/dL (7-18) H 09/07/20 05:21 Creatinine 0.56 mg/dL (0.55-1.3) 09/07/20 05:21 Glucose 225 mg/dL (74-106) H 09/07/20 05:21 Magnesium 2.0 mg/dL (1.8-2.4) 09/06/20 20:27 Total Bilirubin 0.2 mg/dL (0.2-1.0) 09/07/20 05: AST 11 U/L (15-37) L 09/07/20 05: ALT 12 U/L (12-78) 09/07/20 05:21 Alkaline Phosphatase 112 U/L (45-117) 09/07/20 05:21 Troponin I < 0.02 ng/mL (0.0-0.045) 09/07/20 11:20 Triglycerides 203 mg/dL (<150) H 09/07/20 05:21 Cholesterol 153 mg/dL (<200) 09/07/20 05: HDL Cholesterol 43 mg/dL (40-60) 09/07/20 05: Cholesterol/HDL Ratio 3.56 09/07/20 05: Lipase 329 U/L (73-393) 09/06/20 20:27 Home Medications: Gabapentin 300 mg PO BID 05/23/20 Insulin Detemir [Levemir Flextouch] 10 unit SQ DAILY 05/23/20 Semaglutide [Ozempic] 0.25 mg SQ Q7D 08/27/20 Famotidine [Pepcid*] 20 mg PO BID PRN #60 tab 08/31/20 Glucerna Shake [Glucerna*] 237 ml PO BID #60 can 08/31/20 Lactobacillus Acidophilus [Acidophilus] 1 each PO TID #90 capsule 08/31/20 Aspirin [Aspirin EC 81 MG] 81 mg PO DAILY 30 Days #30 tablet. 09/07/20 Atorvastatin Calcium 20 mg PO BEDTIME 30 Days #30 tablet 09/07/20 Clopidogrel Bisulfate [Plavix] 75 mg PO DAILY 30 Days #30 tablet 09/07/20 Folic Acid 1 mg PO DAILY 30 Days #30 tablet 09/07/20 New Medications: Aspirin [Aspirin EC 81 MG] 81 mg PO DAILY 30 Days #30 tablet. Atorvastatin Calcium 20 mg PO BEDTIME 30 Days #30 tablet Folic Acid 1 mg PO DAILY 30 Days #30 tablet Clopidogrel Bisulfate [Plavix] 75 mg PO DAILY 30 Days #30 tablet Physician Discharge Instructions: Your symptoms were concerning for a stroke and you receive tPA (blood thinning/"clot buster") medication. Your symptoms resolved. Your CT and MRI of your brain did not reveal any stroke / brain damage or other findings that would cause your symptoms. The rest of your labs/workup was otherwise normal / at your baseline. You are discharged with prescriptions for aspirin and plavix (anti-platelet) medication for 1 month, afterwards you will continue on aspirin. You are also prescribed a cholesterol medication - atorvastatin to help lower your risk of atherosclerosis and any further strokes/transient ischemic attacks. Please follow up with Neurology - Dr. Nunez in 1 month Please follow up with your PCP in 3-5 days. Diet: ADA Activity: Ad paige Followup: Carlos Nunez MD [ASSOCIATE-ACTIVE - CAN ADMIT] - MARK FLORES [Primary Care Provider] - Time spent managing pt's care (in minutes): 35
--- NOTE | 2020-09-08 08:26 | ECHO ---
HEIGHT: 5 ft 4 in WEIGHT: 100 lb 3.2 oz DATE OF STUDY: REFER DR: Guy Lewis 2-DIMENSIONAL: YES M.MODE: YES DOPPLER: YES COLOR FLOW: YES TDS: NO PORTABLE: YES DEFINITY: NO BUBBLE STUDY: NO DIAGNOSIS: STROKE CARDIAC HISTORY: CATHERIZATION: NO SURGERY: NO PROSTHETIC VALVE: NO PACEMAKER: NO MEASUREMENTS (cm) DIASTOLIC (NORMALS) SYSTOLIC (NORMALS) IVSd 0.9 (0.6-1.2) LA Diam 3.0 (1.9-4.0) LVEF 55-60% LVIDd 3.3 (3.5-5.7) LVIDs 2.4 (2.0-3.5) %FS 25% LVPWd 0.9 (0.6-1.2) Ao Diam 2.7 (2.0-3.7) 2 DIMENSIONAL ASSESSMENT: RIGHT ATRIUM: NORMAL LEFT ATRIUM: NORMAL RIGHT VENTRICLE: NORMAL LEFT VENTRICLE: NORMAL TRICUSPID VALVE: NORMAL MITRAL VALVE: NORMAL PULMONIC VALVE: NORMAL AORTIC VALVE: NORMAL PERICARDIAL EFFUSION: NONE AORTIC ROOT: NORMAL LEFT VENTRICULAR WALL MOTION: NORMAL DOPPLER/COLOR FLOW: NORMAL COMMENTS: NORMAL LEFT VENTRICULAR EJECTION FRACTION 55-60%. NORMAL WALL MOTION. NORMAL STUDY. TECHNOLOGIST: Sulma HERNANDEZ
[2020-09-12 22:18] LABS: Prothrombin Gene Analysis Test REPORT
[2020-09-12 23:51] LABS: Albumin, (SPE) 3.2 g/dL (3.8-4.8); Alpha-1-Globulins 0.4 g/dL (0.2-0.3); Gamma Globulins 0.9 g/dL (0.8-1.7); INTERPRETATION REPORT
[2020-09-14 14:26] LABS: Protein C Antigen 120 % (70-140)
== END 2020-09-07 15:15 | disposition home or self-care (01) | DRG 63 ==
LOC: ER 14:27 → ERHOLD 18:05
PROVIDERS: ADMIT Hospitalist; ATTEND Hospitalist
DX: I63.9 Cerebral infarction, unspecified (principal); E11.40 Type 2 diabetes mellitus with diabetic neuropathy, unspecified; D63.8 Anemia in other chronic diseases classified elsewhere; K21.9 Gastro-esophageal reflux disease without esophagitis; R29.701 NIHSS score 1; R51.9 Headache, unspecified; R20.2 Paresthesia of skin; Z88.5 Allergy status to narcotic agent; Z88.8 Allergy status to other drugs, medicaments and biological substances; Z90.49 Acquired absence of other specified parts of digestive tract; Z90.710 Acquired absence of both cervix and uterus; Z79.4 Long term (current) use of insulin; Z79.899 Other long term (current) drug therapy; Z79.82 Long term (current) use of aspirin; Z79.02 Long term (current) use of antithrombotics/antiplatelets; Z20.822 Contact with and (suspected) exposure to COVID-19
CPT/HCPCS: 36415; 70450; 70496; 70544; 70551; 71045; 80048; 80053; 80061; 80076; 80307; 81240; 81241; 82306; 82550; 82553; 82607; 82746; 82947; 83036; 83090; 83690; 83735; 84165; 84484; 85025; 85300; 85302; 85305; 85306; 85610; 85730; 86021; 86147; 86592; 92610; 92977; 93005; 93306; 99285; J2997; J7050; Q9967; U0003

== ENCOUNTER 2021-06-23 15:19 | Emergency (ER) | payer BC, OTHER ==
--- OUTSIDE RECORDS SUMMARY | 2021-06-23 15:33 | XMS REPORT | Continuity of Care Document ---
:1965 Author Organization [facility] t Address [address] [place] [address] Care Team Providers Name Role Phone SHARPLESS Primary Care Physician Unavailable CAMILA Attending Clinician Unavailable MD CRYSTAL Attending Clinician Unavailable Julian Portillo Attending Clinician Unavailable UNKNOWN Attending Clinician Unavailable Wendy Li Attending Clinician Unavailable UCHE Attending Clinician Unavailable MD JESUS IVEY Attending Clinician Unavailable SOLITARIO CAT Attending Clinician Unavailable SOCO Attending Clinician Unavailable Pretty OLIVAS, Joe Attending Clinician Doctor Unassigned, Name Attending Clinician Unavailable KIMBERLYN MARIE Attending Clinician Unavailable BURAK Attending Clinician Unavailable FARZAD WARNER Attending Clinician Unavailable SAÚL KANG Attending Clinician Unavailable CRYSTAL Admitting Clinician Unavailable MD CRYSTAL Admitting Clinician Unavailable Julian Portillo Admitting Clinician Unavailable Christiano Hernandez Admitting Clinician Unavailable MARTITA Admitting Clinician Unavailable MD TRINIDAD ANDERS Admitting Clinician Unavailable Payers Payer Name Policy Type Policy Number Effective Date Expiration Date S ource Advance Directives Directive Decision Effective Termination Comments Source Date Date Healthcare Agents on N/A [facility] FileNameRelationshipHealthcare [facility] Agent Medical RelationshipCommunicationWindham Hospital PoehlsChildPrimary healthcare [phone] (Mobile) Lizz CootFir alternate healthcare [phone] (Mobile) Problems Condition Condition Condition Status Onset Resolution Last Treating Co mments Source Name Details Category Date Date Treatment Clinician Date HURT TOES Diagnosis Active 2017-02-03 Memoria 12-27 10:25:00 l HURT 00:00: Jona TOES 00 Active 12/27/2016 [facility] Fatigue Fatigue Disease Active Univers 8-02 ity of 00:00: [address] Branch Weight Weight Disease Active Univers loss loss 802 ity of 00:00: [address] Branch Anemia, Anemia, Disease Active Univers unspecifie unspecifie 11-13 it y of d anemia d anemia 00:00: [place] type type 00 [facility] Branch RLS RLS Disease Active Univers (restless (restless 11-13 ity of legs legs 00:00: [place] syndrome) syndrome) 00 [facility] 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 [place] EGD Diagnosis Active 2011-042012-02-06 Mem oria 0-24 10:10:00 l EGD 06:00: [place] 00 Active 02/05/2012 [facility] BLOOD Diagnosis Active 2011-12-11 Mem oria SUGAR 8-16 11:15:00 l PROBLEM BLOOD 15:00: Jona SUGAR 00 PROBLEM Active 11/28/2011 [place] LEFT LOWER Diagnosis Active 2011-12-11 Memoria ABDOMINAL 7-12 10:48:00 l PAIN LEFT 08:00: [place] LOWER 00 ABDOMINAL PAIN Active 10/24/2011 [place] ABDOMINAL Diagnosis Active 2011-12-11 Memoria PAIN HIGH 2-08 11:09:00 l BLOOD 22:00: Jona SUGAR ABDOMINAL 00 PAIN HIGH BLOOD SUGAR Active 05/22/2011 [place] BLEEDING/ Diagnosis Active 2011-12-11 Memoria RT SIDE 1- 11:06:00 l PAIN 08:00: [place] BLEEDING/ 00 RT SIDE PAIN Active 05/07/2011 [place] RIGHT Diagnosis Active 2011-12-20 Mem oria ABDOMINAL 1-06 13:03:00 l PAIN, RIGHT 00:00: Jona BLOOD IN ABDOMINAL 00 URINE PAIN, BLOOD IN URINE Active 04/19/2011 [place] RIGHTABDOM Diagnosis Active 2011-04-19 Memoria INAL PAIN 1-06 20:37:00 l . AND 00:00: J[place] BLOOD IN RIGHTABDOM 00 URINE INAL PAIN . AND BLOOD IN URINE Active 04/19/2011 [place] LOWER ABD Diagnosis Active 2010-042011-12-11 Memoria PAIN/ HIGH 2-12 11:02:00 l SUGAR LOWER 00:00: Jona ABD PAIN/ 00 HIGH SUGAR Active 03/25/2011 [place] CHEST PAIN Diagnosis Active 2010-042011-02-11 Memoria AND 0- 01:56:00 l TIGHTNESS CHEST 18:00: Jorge Luis n PAIN AND 00 TIGHTNESS Active 02/10/2011 [place] CHEST Diagnosis Active 2010-042011-02-15 Mem oria PAIN, 0-30 21:58:00 l DIZZINESS, CHEST 18:00: Eugenia nn HYPERGLYCE PAIN, 00 JENNIE, UTI DIZZINESS, HYPERGLYCE JENNIE, UTI Active 02/10/2011 [place] CHEST PAIN Diagnosis Active 2010-042011-01-15 Memoria 0-03 16:36:00 l CHEST 15:00: [place] PAIN 00 Active 01/14/2011 [place] RIGHT KNEE Diagnosis Active 2010-12-22 Memoria 1ST 3 TOES 9-10 13:04:00 l NUMB RIGHT 11:00: Jona KNEE 1ST 3 00 TOES NUMB Active 12/22/2010 [place] FACIAL Diagnosis Active 2010-12-22 Mem oria NECK 6- 13:04:00 l CELLULITIS FACIAL 00:00: Herm ava NECK 00 CELLULITIS Active 10/08/2010 [place] FACIAL AND Diagnosis Active 2010-12-22 Memoria NECK PAIN 6- 13:04:00 l FACIAL 06:00: Jona AND NECK 00 PAIN Active 10/07/2010 [place] SUGAR Diagnosis Active 2010-12-22 Mem oria HIGH,VAGIN 07-21 13:04:00 l AL SUGAR 00:00: [place] BLEEDING HIGH,VAGIN 00 AL BLEEDING Active 07/21/2010 [place] ABD PAIN Diagnosis Active 2010-12-22 M emoria 01-05 13:04:00 l ABD PAIN 00:00: Jorge Luis n 00 Active 01/05/2010 [place] EAR PAIN Diagnosis Active 2010-12-22 M emoria 10-09 13:04:00 l EAR PAIN 19:00: Jorge Luis n 00 Active 10/09/2009 [place] UPPER Diagnosis Active 2010-12-22 Mem oria ABDOMINAL 09-20 13:04:00 l PAIN UPPER 14:00: [place] ABDOMINAL 00 PAIN Active 09/20/2009 [place] ABD PAIN, Diagnosis Active 2010-12-22 Memoria HIGH SUGAR 5-04 13:04:00 l ABD 00:00: Jona PAIN, HIGH 00 SUGAR Active 08/15/2009 [place] Abdominal Problem Active 2012-02-19 Me moria pain 09:23:16 l [place] Abdominal pain Active Problem 02/19/2012 [facility] [place] Cellulitis Problem Active 2012-02-19 M emoria 09:23:16 l [place] Cellulitis Active Problem 02/19/2012 [facility] [place] Chest pain Problem Active 2012-02-19 M emoria 09:23:16 l Chest [place] pain Active Problem 02/19/2012 [facility] [place] Hyperglyce Problem Active 2012-02-19 M emoria jennie 09:23:16 l [place] Hyperglyce jennie Active Problem 02/19/2012 [facility] [place] UTI - Problem Active 2012-02-19 Memor ia Urinary 09:23:16 l tract UTI - [place] infection Urinary tract infection Active Problem 02/19/2012 [facility] [place] Diabetes Problem Active 2017-03-01 Mem oria mellitus 04:36:24 l (disorder) Diabetes He rmann mellitus (disorder) Active Problem 03/01/2017 [facility] Abdominal Problem Active 2017-03-01 Me moria pain 04:36:24 l (finding) Jona Abdominal pain (finding) Active Problem 03/01/2017 [facility] Chest pain Problem Active 2017-03-01 M emoria (finding) 04:36:24 l Chest Jona pain (finding) Active Problem 03/01/2017 [facility] Hyperglyce Problem Active 2017-03-01 M emoria jennie 04:36:24 l (disorder) Jorge Luis n Hyperglyce jennie (disorder) Active Problem 03/01/2017 [facility] Urinary Problem Active 2017-03-01 Nirmal feliz tract 04:36:24 l infectious Urinary Her pugh disease tract (disorder) infectious disease (disorder) Active Problem 03/01/2017 [facility] CHEST PAIN Diagnosis Active 2010-12-22 Memoria NOS 13:04:00 l CHEST [place] PAIN NOS Active [place] CELLULITIS Diagnosis Active 2010-12-22 Memoria NOS 13:04:00 l [place] CELLULITIS NOS Active [place] History of Past Illness Condition Condition Condition Status Onset Resolution Last Treating Co mments Source Name Details Category Date Date Treatment Clinician Date Hyperglyce Problem 2016-042017-03-01 2017-03-01 Memoria jennie, -14 04:36:24 04:36:24 l unspecifie 06:00: Jorge Luis naqvi d Hyperglyce 00 jennie, unspecifie d 02/25/2017 03/01/2017 [facility] Fever, Problem 2016-2017-03-01 2017-03-01 M emoria unspecifie - 04:36:24 04:36:24 l d Fever, 06:00: [place] unspecifie 00 d 02/25/2017 03/01/2017 [facility] Radiculopa Problem 2016-042017-02-28 2017-02-28 Memoria thy, 1-14 05:26:25 05:26:25 l cervical 06:00: [place] region Radiculopa 00 thy, cervical region 02/25/2017 02/28/2017 [facility] Displaced Problem 2017-2016-12-30 2016-12-30 Memoria unspecifie -15 05:13:20 05:13:20 l d fracture 05:00: Jorge Luis n of right Displaced 00 lesser unspecifie toe(s), d fracture initial of right encounter lesser for closed toe(s), fracture initial encounter for closed fracture 7 12/30/2016 [facility] Allergies, Adverse Reactions, Alerts Allergy Allergy Status Severity Reaction(s) Onset Inactive Treating Comm ents Source Name Type Date Date Clinician metoclop DA Active U seizures [facility] ramide 2- [place] 00:00: [facility] Penicill DA Active U UNKNOWN [facility] ins 05-08 [place] 00:00: [facility] codeine DA Active U UNKNOWN [facility] 05-08 [place] 00:00: [facility] methylph DA Active U UNKNOWN [facility] enidate 05-08 [place] 00:00: [facility] METHYLPH Allergy [facility] [place] [id number] [facility] Metoclop Propensi Active Other - See Possible Univers ramide ty to comments 7-17 seizures ity of Hcl adverse 00:00: with [place] reaction possible Medica l s extrapyra Branch midal side effects Tramadol Propensi Active Rash 2014-04 Univer s Hcl ty to 0-10 ity of adverse 00:00: [place] reaction Medical s Branch Morphine Propensi Active Nausea Univer s ty to and/or 9-12 ity of adverse Vomiting 00:00: [place] reaction Medical s to Branch drug CODEINE DA Active U URGENT [facility]- [facility] 09-20 [place] 00:00: [facility] 00 [facility] No Known DA Active U NA 2001- [facility] Contrast 09-20 [place] Allergie 00:00: [facility] No Known DA Active U NA 2001-0 [facility] Food 09-20 [place] Allergie 00:00: [facility] No Known DA Active U NA 2001-0 [facility] Other 09-20 [place] Allergie 00:00: [facility] PENICILL DA Active U 2001-0 [facility] IN 09-20 [place] 00:00: [facility] 00 [facility] Ritalin Ritalin Active Emmanuelle Tenorio Social History Social Habit Start Date Stop Date Quantity Comments Source Alcohol intake [facility] Sex Assigned At [facility] History of Cigarette Smoker [facility] ty of tobacco use [facility] Social History 2017-02-03 2017-02-03 [facility] Sandeep cleaning 15:24:44 15:24:44 Alcohol Comment 2015-11-13 2015-11-13 once or twice a Univ ersity of 00:00:00 00:00:00 year [facility] Smoking Status Start Date Stop Date Source Former smoker 2018-11-26 00:00:00 2018-11-26 00:00:00 [facility] Medications Ordered Filled Start Stop Current Ordering Indication Dosage Frequency Signature Comments Components Source Medication Medication Date Date Medication? Clinician (SIG) Name Name iohexol 2018- No 89mL 89 mL, Univers (OMNIPAQUE 11-26 Intravenou it y of 350 19:30: 19:05 s, ONCE, 1 [place] BULK-100 00 :00 dose, Ama Medica l mL) 11/26/18 at [place] injection 1430, 89 mL Routine cefTRIAXone 2018- No 1000mg 1,000 mg, Univers (ROCEPHIN) 11-26 IV ity of 1,000 mg in 19:15: 18:40 Piggyback, [place] NaCl 0.9% 00 :00 ONCE, 1 Medical (NS) 50 mL dose, Ama Bran ch MINI-BAG 11/26/18 at 1415, 50 mL
Reas on for Anti-Infec tive: Documented Infection< br>Documen saran Infection Site: Urine
D uration of Therapy: 7 days NaCl 0.9% 2018- No 1000mL at 999 Uni vers (NS) bolus 11-26 mL/hr, ity of infusion 18:15: 19:49 1,000 mL, Mane as 1,000 mL 00 :00 IV Medical Infusion, [place] ONCE, 1 dose, Ama 11/26/18 at 1315, MACY ondansetron 2018- No 4mg 4 mg, Slow Univers (ZOFRAN 11-26 IV Push, ity of (PF)) 18:15: 17:32 ONCE, 1 [place] injection 4 00 :00 dose, Ama Med ical mg 11/26/18 at Branch 1315, MACY dicyclomine 2018- No 20mg 20 mg, Uni vers (BENTYL) 8-15 08-15 Intramuscu ity of injection 18:05: 18:10 lar[place]CE [place] 20 mg 00 :00 NOW, 1 Medical dose, Ama Branch 11/26/18 at 1315, Routine pantoprazol 2018- No 40mg 40 mg, IV Univers e 11-26 Push, ity of (PROTONIX) 17:34: 17:47 ONCE, 1 [place] as 40 mg in 00 :00 dose, Ama Medica l NaCl 0.9% 11/26/18 at Bran ch (NS) 20 mL 1245, 20 syringe mL maalox:diph 2019- No 15mL 15 mL, Uni vers enhydrAMINE 11-26 Oral, ity of :lidocaine2 17:15: 17:32 ONCE, 1 [place] %viscous 00 :00 dose, Ama Medica l 1:1:1: 11/26/18 at Branch suspension 1215, MACY (COMPOUNDED ) cefpodoxime 2019- No [id number] 100mg Take 1 Univers 100 mg 11-26 tablet by ity of tablet 00:00: 04:59 mouth 2 [place] 00 :00 (two) Medical times Branch daily for 7 days. lactulose 2019- No [id number] 30mL Take 30 mL Univers 10 gram/15 11-26 by mouth ity of mL oral 00:00: 04:59 [place] solution 00 :00 6 days. Medical Branch ondansetron Yes 4mg Take 1 Univ ers (ZOFRAN 9-24 tablet by ity of ODT) 4 mg 00:00: mouth [place] disintegrat 00 every 8 Medic al ing tablet (eight) Branch hours as needed for Nausea and Vomiting (N/V). ondansetron Yes 4mg Take 1 Univ ers (ZOFRAN 9-24 tablet by ity of ODT) 4 mg 00:00: mouth [place] disintegrat 00 every 8 Medic al ing tablet (eight) Branch hours as needed for Nausea and Vomiting (N/V). insulin Yes inject Univers glargine 7-30 under the ity of 100 unit/mL 23:38: skin. [place] injection 37 Medical Branch pregabalin Yes 50mg Take 50 mg U nivers 50 mg 7-30 by mouth. ity of capsule 23:38: [address] rOPINIRole 2018-0 Yes 1mg Take 1 mg Un federico 1 mg tablet 7-30 by mouth. ity of 23:38: [address] insulin 2017-0 Yes inject Univers glargine 7-30 under the ity of 100 unit/mL 23:38: skin. [place] injection [address] [place] [address] pregabalin 2018-0 Yes 50mg Take 50 mg U nivers 50 mg 7-30 by mouth. ity of capsule 23:38: [address] rOPINIRole 2018-0 Yes 1mg Take 1 mg Un federico 1 mg tablet 7-30 by mouth. ity of 23:38: [address] dicyclomine 2018-0 Yes 20mg Take 1 Univ ers (BENTYL) 20 7-30 tablet by ity of mg tablet 00:00: mouth 4 [place] ([facility]) Medical times Branch daily. dicyclomine 2018-0 Yes 20mg Take 1 Univ ers (BENTYL) 20 7-30 tablet by ity of mg tablet 00:00: mouth 4 [place] ([facility]) Medical times Branch daily. dicyclomine 2018-0 Yes 20mg Take 1 Univ ers (BENTYL) 20 7-30 tablet by ity of mg tablet 00:00: mouth 4 [place] ([facility]) Medical times Branch daily. dicyclomine 2018-0 Yes 20mg Take 1 Univ ers (BENTYL) 20 7-30 tablet by ity of mg tablet 00:00: mouth 4 [place] ([facility]) Medical times Branch daily. GI cocktail 2016-04 No Notes: Nirmal [...] ___ mg Morphine 2016-04 No Notes: Memoria -15 (Same l 02:34: as:MORPhin Jona 00 e [...] Weight 49.545 kg, Start date: 02/25/17 20:22:00 ALARM INSTALLATION TECHNICIAN, Stop date: 02/25/17 20:22:00 ALARM INSTALLATION TECHNICIAN ibuprofen 2016-04 Yes 800 mg = [...] [Flexeril] Refill(s) Valium 2016-04 No Notes: Memoria 1-14 (Same as: l 05:48: Valium) [place] 00 Ketorolac 2016-04 No 4 days Memor ia 1-14 l 05:48: MEDICATION WASTE Product Size: 30 mg Product Wasted: ___ mg Ciprofloxac 2016-04 Yes 500 mg = 1 Memoria in 500 MG 0-15 tab, PO, l Oral Tablet 14:57: Q12H, for H ermann [Cipro] 00 UTI, X 3 day, # 6 tab, 0 Refill(s), Pharmacy: [id number] Humalog 100 2016-04 Yes 4 unit, Mem oria units/mL 0-15 SUB-Q, l 14:48: TID-Before [place] 00 Meals, hold insulin injection if your blood sugar is less than 140 mg/dL., # 10 mL, 0 Refill(s), Pharmacy: [id number] pantoprazol 2016-04 Yes 40 mg = 1 M emoria e 40 MG 0-15 tab, PO, l Enteric 14:48: Daily, # Jorge Luis n Coated 00 30 tab, 0 Tablet Refill(s), [Protonix] Pharmacy: [id number] Calcium 2016-04 Yes 500 mg = 1 Nirmal feliz Carbonate 0-15 tab, PO, l 500 MG 14:48: TID, # 6 Jona Chewable 00 tab, 0 Tablet Refill(s), Pharmacy: [id number] Insulin 2016-04 Yes 15 unit, Memori a Glargine 0-15 SUB-Q, l 100 UNT/ML 14:48: Daily, # Her pugh Injectable 00 10 mL, 0 Solution Refill(s), [Lantus] Pharmacy: [id number] Calcium 2016-04 No Notes: Memoria Gluconate 0-15 WASTE: F/P l 14:47: - Sink; E [place] 00 - Municipal Trash Bin Calcium 2016-04 No Notes: Memoria Carbonate 0-15 (Same As: l 14:00: Tums) [place] Calcium Carbonate 500 mg = 200 mg [...] 0-14 (Same As: l 22:40: Tums) Jona 00 Calcium Carbonate 500 mg = 200 mg elemental calcium Dose = mg calcium carbonate ( mg elemental calcium) Protonix 2016-04 No Notes: Memoria 0-14 Tablet l 22:00: should not Jona 00 be chewed or crushed. (Same as: Protonix) Magnesium 2016-04 No Notes: Memori a Oxide 0-14 (Same as: l 22:00: Mag-Ox Jona 00 400) Magnesium oxide 160wo=932r g elemental magnesium Dose=____m g magnesium oxide (___mg elemental magnesium) Ketorolac 2016-04 No 4 days Memor ia 0-14 l 17:02: MEDICATION [place] WASTE Product Size: 30 mg Product Wasted: ___ mg Docusate 2016-04 No Notes: Memoria 0-14 (Same as: l 14:00: Colace) Jona (Do Not Crush) Insulin 2016-04 No 50 [...] 0-14 Route: IM, l 06:35: Drug form: [place] 00 PDR/INJ, PRN, Dosing Weight 51.449, kg, PRN Blood Glucose Results, Start date: 01/25/17 1:35:00 CDT, Duration: 30 day, Stop date: 02/24/17 0:34:00 ALARM INSTALLATION TECHNICIAN Insulin 2016-04 No 60 Memoria Lispro 0-14 units) l 06:35: WASTE: F/P [place] - Black; E - [employer] Trash Bin Stable for 28 days at room temperatur e. Expires in days from ____Date Dextrose 2016-04 No 25 gm, 50 Nirmal feliz 50% Syringe 0-14 mL, Route: l 06:35: IVP, Drug Form: INJ, Dosing Weight 51.449, kg, PRN, PRN Blood Glucose Results, Start date: 01/25/17 1:35:00 CDT, Duration: 30 day, Stop date: 02/24/17 0:34:00 ALARM INSTALLATION TECHNICIAN Acetaminoph 2016-04 No Notes: Do M emoria en 0-14 not exceed l 06:32: 4 gm/day. [place] (Same as: Tylenol) Acetaminoph 2016-04 No Notes: Nirmal feliz en 325 MG / 0-14 (Same as: l Hydrocodone 06:32: [place] Eugenia nn Bitartrate 00 325/5) Do 5 [...] 01/25/17 1:32:00 CDT, Stop date: 02/24/17 1:31:00 ALARM INSTALLATION TECHNICIAN Saline 2016- No Notes: Memoria Flush 0.9% 0-14 (Same [...] 0-14 500 ml/hr, l 0.9% 03:09: Infuse [place] (Bolus) IV 00 Over: 1 hr, Route: IV, 500, Drug form: INJ, ONCE, Priority: STAT, Dosing Weight 52.273 kg, Start date: 01/24/17 22:09:00 CDT, Duration: 1 doses or times, Stop date: 01/24/17 22:09:00 CDT Zofran 2016-04 No 4 mg, Memoria 0-14 Route: l 03:07: IVP, Drug form: INJ, ONCE, Dosing Weight 52.273, kg, Priority: STAT, Start date: 01/24/17 22:07:00 CDT, Stop date: 01/24/17 22:07:00 CDT Morphine 2016-04 No Notes: Memoria 0-14 (Same l 02:12: as:MORPhin [place] 00 e Sulfate) Acetaminoph No 1 - 2 tab, Memoria en 300 MG / 12-27 PO, Q4H, l Codeine 05:54: PRN Pain, Eugenia nn Phosphate 00 X 2 day, # 30 MG Oral 30 tab, 0 Tablet Refill(s) [Tylenol with Codeine #3] Acetaminoph No Notes: Nirmal feliz en 325 MG / 12-27 (Same as: l Hydrocodone 04:47: [place] Eugeina nn Bitartrate 00 325/5) Do 5 MG Oral not exceed Tablet 4gm/day of [[place] acetaminop 5/325] hen. Sodium No Vimi 500 mL, Memoria Chloride 11-28 Roche Rate: 500 l 0.9% 03:47: ml/hr, [place] (Bolus) IV 00 Infuse 500 mL over: 1 hr, Route: IV, Dosing Weight 50 kg, Total Volume: 500, [place] Dose, Priority: STAT, Start date: 11/28/11 22:47:00, Duration: 1 doses or times, Stop date: 11/28/11 23:46:00 NovoLog Yes Substituti Nirmal feliz 11-28 on Allowed l 03:29: Jona 17 Insulin No [place] 7 unit, Memoria regular 11-28 Roche Route: l 02:51: IVP, ONCE, Dosing Weight 50, kg, Priority: STAT, Start date: 11/28/11 21:51:00, Stop date: 11/28/11 21:51:00 ketorolac No [place] 30 mg, Memori a 11-28 Roche Route: l 02:51: IVP, Drug [place] 00 form: INJ, ONCE, Dosing Weight 50, kg, Priority: STAT, Start date: 11/28/11 21:51:00, Stop date: 11/28/11 21:51:00 ondansetron 2011-0 No [place] 4 mg, Memor ia 11-28 Roche Route: l 02:51: IVP, ONCE, Jona 00 Dosing Weight 50, kg, Priority: STAT, Start [...] or times, Stop date: 11/28/11 22:50:00 Saline 2011- No Vimi 5 ml, Memoria Flush 0.9% 11-28 Roche Route: l 02:51: IVP, Drug [place] 00 Form: INJ, kg, PRN, PRN Line Flush, Start date: 11/28/11 21:51:00, Duration: 30 day, Stop date: 12/28/11 21:50:00 [place] 5/325 2011- Yes Juan 1-2 tab, M emoria oral tablet 7-13 Mesha PO, Q4-6H, l 06:12: [place] PRN, 15 [place] 25 tab, Pain, Substituti on Allowed, Soft Stop Zofran ODT 2011- Yes Juan 4 mg, 1 Mem oria 4 mg oral 7-13 Mesha tab, PO, l tablet, 06:12: [place] TID, PRN, Her pugh disintegrat 16 10 tab, ing Nausea and Vomiting, Substituti on Allowed morphine 2011-0 No Juan 4 mg, 2 Memor ia Sulfate 7-13 Mesha mL, Route: l 05:22: [place] IVP, Drug Jorge Luis n 00 form: INJ, ONCE, Priority: STAT, Start date: 10/25/11 0:22:00, Stop date: 10/25/11 0:22:00 diphenhydrA 2011-0 No Juan 25 mg, Mem oria MINE 7-13 Mesha Route: l 05:06: [place] IVP, ONCE, Eugenia nn 00 Priority: STAT, Start date: 10/25/11 0:06:00, Stop date: 10/25/11 0:06:00 morphine 2011-0 No Juan 4 mg, 2 Memor ia Sulfate 7-13 Mesha mL, Route: l 03:06: [place] IVP, Drug Jorge Luis n 00 form: INJ, ONCE, Priority: STAT, Start date: 10/24/11 22:06:00, Stop date: 10/24/11 22:06:00 Sodium 2011-0 No Juan 1,000 mL, Memor ia Chloride 7-13 Mesha Rate: l 0.9% 03:06: [place] 1,000 [place] (Bolus) IV 00 ml/hr, 1,000 mL Infuse over: 1 hr, Route: IVPB, Dosing Weight 54.545 kg, Total Volume: 1,000, [place] Dose, Priority: STAT, Start date: 10/24/11 22:06:00, Duration: 1 doses or times, Stop date: 10/24/11 23:05:00 Saline 2011-0 No Juan 5 ml, Memoria Flush 0.9% 7-13 Mesha Route: l 03:06: [place] IVP, Drug Jorge Luis n 00 Form: INJ, PRN, PRN Line Flush, Start date: 10/24/11 22:06:00, Duration: 30 day, Stop date: 11/23/11 22:05:00 ondansetron 2011-0 No Juan 4 mg, 2 Me moria 7-13 Mesha mL, Route: l 03:06: [place] IVP, Drug Jorge Luis n 00 form: INJ, ONCE, Priority: STAT, Start date: 10/24/11 22:06:00, Stop date: 10/24/11 22:06:00 Insulin 2011-0 No Juan 5 unit, Memori a regular 7-13 Mesha 0.05 mL, l 03:06: [place] Route: IV, [...] 2-09 Roche 0.05 mL, l 07:10: Route: [place] 00 IVP, Drug form: SOLN, ONCE, Priority: STAT, Start date: 05/23/11 1:10:00, Stop date: 05/23/11 1:10:00 Visipaque 2011-0 Yes Vimi 32,000 mg, Me moria 2- Roche 100 mL, l 05:47: Route: IV, Jona 00 Drug form: INJ, ONCE, Start date: 05/22/11 23:47:00, Stop date: 05/22/11 23:47:00 Insulin 2011- No Vimi 5 unit, Memoria regular 2-09 [...] Roche mL, Route: l 05:04: IVP, Drug [place] 00 form: INJ, ONCE, Priority: STAT, Start date: 05/22/11 23:04:00, Stop date: 05/22/11 23:04:00 Sodium 2011-0 No Vimi 500 mL, Memoria Chloride 2-09 Roche Rate: l 0.9% 05:04: 1,000 [place] (Bolus) IV 00 ml/hr, 500 mL Infuse over: 0.5 hr, Route: IV, Total Volume: 500, Bol[place] dose, Priority: STAT, Start date: 05/22/11 23:04:00, Duration: 1 doses or times, Stop date: 05/22/11 23:33:00 Saline 2011- No Vimi 5 ml, Memoria Flush 0.9% 05-23 [facility] Route: l 05:04: IVP, Drug Form: INJ, [...] 41 tab, Substituti on Allowed, TAB Pyridium No Sonal 200 mg, 2 Me moria 1-25 Raulito tab, l 02:03: Route: PO, Drug form: TAB, ONCE, Priority: STAT, Start date: 05/07/11 20:03:00, Stop date: 05/07/11 20:03:00 Cipro 2011-0 No Sonal 500 mg, 2 Memor ia 1-25 Raulito tab, l 02:03: Route: PO, Drug form: TAB, ONCE, Priority: STAT, Start date: 05/07/11 20:03:00, Stop date: 05/07/11 20:03:00 Cipro 500 Yes Juan 500 mg, 1 Me moria mg oral -07 Mesha tab, PO, l tablet 06:55: [place] BID, 20 Jorge Luis n 31 tab, Substituti on Allowed Zofran ODT Yes Juan 4 mg, 1 Mem oria 4 mg oral -07 Mesha tab, PO, l tablet, 06:55: [place] TID, PRN, Her pugh disintegrat 29 10 tab, ing Nausea and Vomiting, Substituti on Allowed [place] Yes Juan 1 tab, PO, Memor ia 10/325 oral 1-07 Mesha Q4-6H, l tablet 06:55: [place] PRN, 24 Jorge Luis n 26 tab, as needed for pain, Substituti on Allowed, Maintenanc e hydromorpho No Juan 1 mg, 0.5 Memoria ne 04-20 Mesha mL, Route: l 05:38: [place] IVP, Drug Jorge Luis n 00 form: INJ, ONCE, Priority: STAT, Start date: 04/19/11 23:38:00, Stop date: 04/19/11 23:38:00 Insulin No Juan 10 unit, Memor ia regular 04-20 Mesha 0.1 mL, l 05:31: Yeaton Route: [place] 00 IVP, Drug form: SOLN, ONCE, Priority: STAT, Start date: 04/19/11 23:31:00, Stop date: 04/19/11 23:31:00 Sodium 2011- No Juan 1,000 mL, Memor ia Chloride 04-20 Mesha Rate: l 0.9% 03:30: Yeaton 1,000 [place] ([place]olus) IV 00 ml/hr, 1,000 mL Infuse over: 1 hr, Route: IV, Total Volume: 1,000, [place] Dose, Priority: STAT, Start date: 04/19/11 21:30:00, Duration: 1 doses or times, Stop date: 04/19/11 22:29:00 Saline No Juan 5 ml, Memoria Flush 0.9% 04-20 Mesha Route: l 03:30: Yeaton IVP, Drug Jorge Luis n 00 Form: INJ, PRN, PRN Line Flush, Start date: 04/19/11 21:30:00, Duration: 30 day, Stop date: 05/19/11 21:29:00 ondansetron No Juan 4 mg, Nirmal efliz 04-20 Mesha Route: l 03:30: Yeaton IVP, ONCE, Eugenia nn 00 Priority: STAT, Start date: 04/19/11 21:30:00, Stop date: 04/19/11 21:30:00 ketorolac No Juan 30 mg, Memor ia 07 Mesha Route: l 03:30: Yeaton IVP, ONCE, Eugenia nn 00 Priority: STAT, Start date: 04/19/11 21:30:00, Stop date: 04/19/11 21:30:00 hydromorpho 2011-0 No Juan 1 mg, Nirmal feliz ne 07 Mesha Route: l 03:30: Yeaton IVP, ONCE, Eugenia [...] 1 M emoria 25 mg oral 2-13 Hingham Phelps tab, PO, l tablet 05:57: Q6H, PRN, Jorge Luis n 09 15 tab, Nausea, Substituti on Allowed Vicodin 2010-04 Yes Mila 1 tab, PO, M emoria 5/500 oral 2-13 Hingham Phelps Q4-6H, l tablet 05:57: PRN, 24 Jona 05 tab, for Pain, Substituti on Allowed, Maintenanc e Sodium 2010-04 No Mila 1,000 mL, Mem oria Chloride 2-13 Zay Phelps Rate: l 0.9% 03:24: 1,000 [place] (Bolus) IV 00 ml/hr, 1,000 mL Infuse over: 1 hr, Route: IV, Total Volume: 1,000, [place] Dose, Priority: STAT, Start date: 03/25/11 21:24:00, Duration: 1 doses or times, Stop date: 03/25/11 22:23:00 Insulin 2010-04 No Mila 10 unit, Mem oria regular 2-13 Hingham Phelps 0.1 mL, l 03:16: Route: [place] 00 IVP, Drug form: SOLN, ONCE, Priority: STAT, Start date: 03/25/11 21:16:00, Stop date: 03/25/11 21:16:00 Omnipaque 2010-04 Yes Mila 30,000 mg, Memoria 300 2-13 Hingham Phelps 100 mL, l 03:15: Route: IV, Jona Drug form: SOLN, ONCE, Start date: 03/25/11 21:15:00, Stop date: 03/25/11 21:15:00 Saline 2010-04 No Mila 5 ml, Memoria Flush 0.9% 2-13 Zay Phelps Route: l 02:19: IVP, Drug Jona [...] 4 mg, 0.8 M emoria Sulfate 2-13 Hingham Phelps mL, Route: l 02:19: IVP, Drug [place] 00 form: INJ, ONCE, Priority: STAT, Start [...] PO, Herm ava 00 Drug form: TAB, [id number], Start date: 02/11/11 11:00:00, Duration: 30 day, [...] FlexPen 0-31 Ari 0.7 mL, l 14:00: Bridges Route: Jona 00 SUB-Q, Drug form: INJ, Daily, Start date: 02/11/11 9:00:00, Duration: 30 day, Stop date: 03/12/11 9:00:00 Saline 2010-04 No Dk 5 ml, Memoria Flush 0.9% 0-31 Ari Route: l 14:00: Jonathan IVP, Drug Eugenia nn Form: INJ, Q12H, Start date: 02/11/11 9:00:00, Duration: 30 day, Stop date: 03/12/11 21:00:00 nitroglycer 2010-04 No Dk 0.5 inch, Memoria in 2% 0-31 Ari Route: l ointment 14:00: Jonathan TOP, Drug H ermann Form: OINT, TID, Start date: 02/11/11 9:00:00, Duration: 30 day, Stop date: 03/12/11 17:00:00 metoprolol 2010-04 No Dk 25 mg, 1 Me moria tartrate 0-31 Ari tab, l 14:00: Jonathan Route: PO, Herm ava Drug form: TAB, BID, Start date: 02/11/11 9:00:00, Duration: 30 day, Stop date: 03/12/11 17:00:00 Yesy 180 2010-04 Yes Dakota 180 mg, 1 Memoria mg oral 0-31 Minhvu Victoriano tab, PO, l tablet 12:36: [place] Daily, 30 Jorge Luis n 20 tab, Substituti on Allowed, TAB Cipro 500 2010-04 Yes Dakota 500 mg, 1 M emoria mg oral 0-31 Minarnaldo Pastrana tab, PO, l tablet 11:36: [place] BID, 6 [place] 36 tab, Substituti on Allowed Cipro 2010-04 No Dk 250 mg, 1 Memori a 0-31 Ari tab, l 08:00: Jonathan Route: PO, Herm ava 00 Drug form: TAB, [id number], Start date: 02/11/11 3:00:00, Duration: 30 day, [...] Shauna mL, Route: l 05:37: IVP, Drug [place] 00 form: INJ, ONCE, Priority: STAT, Start [...] Memoria 0-31 Shauna Route: l 04:08: IVPB, [place] 00 ONCE, Priority: STAT, Start date: 02/10/11 23:08:00, Stop date: 02/10/11 23:08:00 Insulin 2010-04 No Penelope S 10 unit, Nirmal feliz regular 0-31 Shauna Route: l 03:56: SUB-Q, [place] 00 ONCE, Priority: STAT, Start date: 02/10/11 22:56:00, Stop date: 02/10/11 22:56:00 Sodium 2010-04 No Penelope S 1,000 mL, Nirmal feliz Chloride 0-31 Shauna Rate: l 0.9% 03:55: 1,000 [place] (Bolus) IV 00 ml/hr, 1000 mL Infuse over: 1 hr, Route: IV, Total Volume: 1,000, [place] Dose, Priority: STAT, Start date: 02/10/11 22:55:00, Duration: 1 doses or times, Stop date: 02/10/11 23:54:00 BD 2011-1 No Penelope S 15 mL, Memoria Posiflush 0-31 Shauna Route: l SF 02:55: IVP, Drug [place] 00 Form: INJ, PRN, PRN Line Flush, [...] 0-31 Shauna tab, l 02:47: Route: SL, [place] 00 Drug form: TAB, Q5Min, PRN Chest Pain, (Hold if SBP < = 90 mmHg or if < = 100mmHg with symptomati c dizziness) , Start date: 02/10/11 21:47:00, Duration: 3 doses or times, Stop date: Limited # of times morphine 2010-04 No Penelope S 2 mg, Memori a Sulfate 0-31 Shauna Route: l 02:47: IVP, ONCE, [place] 00 Priority: STAT, Start date: 02/10/11 21:47:00, Stop date: 02/10/11 21:47:00 Saline 2010-04 No Penelope S 5 ml, Memoria Flush 0.9% 0-31 Shauna Route: l 02:47: IVP, PRN, [place] 00 PRN Line Flush, Start date: 02/10/11 [...] Victoriano tab, l 02:00: [place] Route: PO, [place] 00 Drug form: TAB, Bedtime, Start date: [...] Q12H, l tablet 15:37: Edwards 30 tab, [place] 31 Substituti on Allowed, TAB aspirin 325 2010-04 Yes Giovani 9,750 mg, Memoria mg tablet, 0-04 Xiaoguang 30 tab, l enteric 15:37: Edwards PO, Daily, Herm ava coated 18 30 tab, Substituti on Allowed, ECTAB metoprolol 2010-04 No Giovani 12.5 mg, Me moria 0-04 Xiaoguang 0.5 tab, l 15:36: Grace Route: PO, [place] 00 Drug form: TAB, Q12H, Priority: NOW, Start date: 01/15/11 10:36:00, Duration: 30 day, Stop date: 02/14/11 9:00:00 Fioricet 2010-04 Yes Tajuddin 1 tab, PO, Memoria oral tablet 0-04 Qasimali Q4H, PRN, l 14:18: Medina 30 tab, [place] 21 Headache, Substituti on Allowed, Maintenanc e, [...] Victoriano 0.7 mL, l 02:00: [place] Route: [place] 00 SUB-Q, Drug form: INJ, Bedtime, Start date: 01/14/11 21:00:00, Duration: 30 day, Stop date: 02/12/11 21:00:00 Lantus 2010-04 No Dakota 70 unit, Memor ia 0-04 Minhvu Victoriano Route: l 02:00: [place] SUB-Q, [place] 00 Bedtime, Start date: 01/14/11 21:00:00, Duration: 30 day, Stop date: 02/12/11 21:00:00 glucagon 2010-04 No Dakota 1 mg, Memori [...] day, Stop date: 02/13/11 19:21:00 Dextrose 2010-04 No Dakota 25 gm, 50 Me moria 50% [...] Victoriano tab, l 00:21: [place] Route: SL, [place] 00 Drug form: TAB, Q5Min, PRN Chest [...] Victoriano tab, l 00:21: [place] Route: PO, [place] 00 Drug form: TAB, Q4H, PRN Headache, Start date: 01/14/11 19:21:00, Duration: 30 day, Stop date: 02/13/11 19:20:00 temazepam 2010-04 No Dakota 15 mg, 1 Me moria 0-04 Minhvu Victoriano cap, l 00:21: [place] Route: PO, Jona Drug form: CAP, Bedtime, PRN Insomnia, Start date: 01/14/11 19:21:00, Duration: 30 day, Stop date: 02/13/11 19:20:00 ondansetron 2010-04 No Dakota 4 mg, 1 M emoria 0-04 Minhvu Victoriano tab, l 00:21: [place] Route: PO, [place] 00 Drug form: TAB, Q8H, PRN Nausea [...] 0-03 Davis Route: l 20:20: IVP, Drug [place] 00 Form: INJ, PRN, PRN Line Flush, [...] Name Observation Time Observation Value Comments Source HEIGHT 2021-01-19 11:26:00 162.6 cm WEIGHT 2021-01-19 11:26:00 43.999 kg Systolic blood 2018-11-26 20:02:00 167 mm[Hg] [facility] Diastolic blood 2018-11-26 20:02:00 90 mm[Hg] [facility] Heart rate 2018-11-26 20:02:00 74 /min [facility] Respiratory rate 2018-11-26 20:02:00 18 /min [facility] Oxygen saturation in 2018-11-26 20:02:00 100 /min [facility] Arterial blood by [facility] Pulse oximetry Branch Body temperature 2018-11-26 16:31:00 36.83 Emma [facility] Body weight 2018-11-26 16:31:00 45.36 kg [facility] BMI 2018-11-26 16:31:00 17.16 kg/m2 [facility] Systolic blood 2018-11-26 20:02:00 167 mm[Hg] [facility] Diastolic blood 2018-11-26 20:02:00 90 mm[Hg] [facility] Heart rate 2018-11-26 20:02:00 74 /min [facility] Respiratory rate 2018-11-26 20:02:00 18 /min [facility] Oxygen saturation in 2018-11-26 20:02:00 100 /min [facility] Arterial blood by [facility] steven Pulse oximetry Branch Body temperature 2018-11-26 16:31:00 36.83 Emma [facility] Body weight 2018-11-26 16:31:00 45.36 kg [facility] BMI 2018-11-26 16:31:00 17.16 kg/m2 [facility] Systolic (mm Hg) 2017-02-26 06:50:00 Nirmal Tenorio Diastolic (mm Hg) 2017-02-26 06:50:00 Mem orial [place] Respitory Rate 2017-02-26 06:50:00 Memori al [place] Temperature Oral (F) 2017-02-26 06:50:00 97.6 F [facility] [place] Heart Rate 2017-02-26 06:50:00 [facility] [place] Respitory Rate 2017-02-26 04:30:00 Memori al [place]ona Systolic (mm Hg) 2017-02-26 04:30:00 Nirmal rial Jona Diastolic (mm Hg) 2017-02-26 04:30:00 Mem orial [place] Heart Rate 2017-02-26 04:30:00 [facility] [place] Temperature Oral (F) 2017-02-26 00:55:00 98.8 F [facility] [place] Weight 2017-02-26 00:55:00 [facility] [place] BMI Calculated 2017-02-26 00:55:00 Memori al [place] Height 2017-02-26 00:55:00 162.56 cm [facility] [place] Systolic (mm Hg) 2017-02-26 00:55:00 Nirmal rial Jona Diastolic (mm Hg) 2017-02-26 00:55:00 Mem orial [place] Heart Rate 2017-02-26 00:55:00 [facility] [place] Respitory Rate 2017-02-26 00:55:00 Memori al [place] Respitory Rate 2017-02-25 07:35:00 Memori al [place] Systolic (mm Hg) 2017-02-25 07:35:00 Nirmal rial [place] Diastolic (mm Hg) 2017-02-25 07:35:00 Mem orial Jona Temperature Oral (F) 2017-02-25 07:35:00 98.2 F [facility] [place] Heart Rate 2017-02-25 07:35:00 [facility] [place] BMI Calculated 2017-02-25 05:05:00 Memori al [place] Weight 2017-02-25 05:05:00 [facility] [place] Height 2017-02-25 05:05:00 162.56 cm [facility] [place] Heart Rate 2017-02-25 05:05:00 [facility] [place] Respitory Rate 2017-02-25 05:05:00 Memori al [place] Temperature Oral (F) 2017-02-25 05:05:00 97.8 F [facility] [place] Systolic (mm Hg) 2017-02-25 05:05:00 Nirmal rial [place] Diastolic (mm Hg) 2017-02-25 05:05:00 Mem orial Jona Weight 2017-02-25 04:55:00 [facility] [place] Height 2017-02-25 04:55:00 167.64 cm [facility] [place] Temperature Oral (F) 2017-02-25 04:55:00 97.8 F [facility] [place] BMI Calculated 2017-02-25 04:55:00 Memori al [place]ona Systolic (mm Hg) 2017-02-25 04:55:00 Nirmal rial [place] Diastolic (mm Hg) 2017-02-25 04:55:00 Mem orial [place]ona Respitory Rate 2017-02-25 04:55:00 Memori al [place] Heart Rate 2017-02-25 04:55:00 [facility] [place] Temperature Oral (F) 2017-01-26 16:47:00 98.5 F [facility] [place] Heart Rate 2017-01-26 16:47:00 [facility] [place] Respitory Rate 2017-01-26 16:47:00 Memori al Jona Systolic (mm Hg) 2017-01-26 16:47:00 Nirmal rial Jona Diastolic (mm Hg) 2017-01-26 16:47:00 Mem orial [place] Heart Rate 2017-01-26 12:26:00 [facility] [place] Respitory Rate 2017-01-26 12:26:00 Memori al [place] Temperature Oral (F) 2017-01-26 12:26:00 98.4 F [facility] [place] Systolic (mm Hg) 2017-01-26 12:26:00 Nirmal rial Jona Diastolic (mm Hg) 2017-01-26 12:26:00 Mem orial [place]ona Temperature Oral (F) 2017-01-26 09:50:00 98.1 F [facility] [place] Heart Rate 2017-01-26 09:50:00 [facility] [place] Systolic (mm Hg) 2017-01-26 09:50:00 Nirmal rial Jona Diastolic (mm Hg) 2017-01-26 09:50:00 Mem orial [place]ona Respitory Rate 2017-01-26 09:50:00 Memori al [place] Height 2017-01-25 05:58:00 157.48 cm [facility] [place] Weight 2017-01-25 05:58:00 [facility] [place] BMI Calculated 2017-01-25 05:58:00 Memori al [place] Weight 2017-01-25 02:01:00 [facility] [place] BMI Calculated 2017-01-25 02:01:00 Memori al [place] Height 2017-01-25 02:01:00 162.56 cm [facility] [place] Diastolic (mm Hg) 2016-12-27 06:03:00 Mem orial [place] Respitory Rate 2016-12-27 06:03:00 Memori al [place] Heart Rate 2016-12-27 06:03:00 [facility] [place] Temperature Oral (F) 2016-12-27 06:03:00 98.3 F [facility] [place] Systolic (mm Hg) 2016-12-27 06:03:00 Nirmal rial Jona Temperature Oral (F) 2016-12-27 04:22:00 98.4 F [facility] [place] Respitory Rate 2016-12-27 04:22:00 Memori al [place] Systolic (mm Hg) 2016-12-27 04:22:00 Nirmal rial [place] Diastolic (mm Hg) 2016-12-27 04:22:00 Mem orial Jona BMI Calculated 2016-12-27 04:22:00 Memori al J[place] Weight 2016-12-27 04:22:00 [facility] [place] Heart Rate 2016-12-27 04:22:00 [facility] [place] Height 2016-12-27 04:22:00 162.56 cm [facility] [place] Height 2012-02-06 15:19:00 162.56 cm [facility] [place] Weight 2012-02-06 15:19:00 [facility] [place] Height 2011-11-29 02:35:00 162.56 cm [facility] [place] Weight 2011-11-29 02:35:00 [facility] [place] Height 2011-10-25 02:45:00 162.56 cm [facility] [place] Weight 2011-10-25 02:45:00 [facility] [place] Height 2011-05-23 04:48:00 162.56 cm [facility] [place] Weight 2011-05-23 04:48:00 [facility] [place] Temperature Oral (F) 2011-05-08 02:38:00 98.5 F [facility] [place] Diastolic (mm Hg) 2011-05-08 02:38:00 Mem orial [place] Systolic (mm Hg) 2011-05-08 02:38:00 Nirmal rial [place] Heart Rate 2011-05-08 02:38:00 [facility] [place] Respitory Rate 2011-05-08 02:38:00 Memori al [place] Weight 2011-05-08 00:09:00 [facility] [place] Height 2011-05-08 00:09:00 162.56 cm [facility] [place] Temperature Oral (F) 2011-05-08 00:09:00 98.6 F [facility] [place] Diastolic (mm Hg) 2011-05-08 00:09:00 Mem orial [place] Systolic (mm Hg) 2011-05-08 00:09:00 Nirmal rial [place] Heart Rate 2011-05-08 00:09:00 [facility] [place] Respitory Rate 2011-05-08 00:09:00 Memori al Jnoa Respitory Rate 2011-04-20 07:05:00 Memori al [place] Heart Rate 2011-04-20 07:05:00 [facility] [place] Diastolic (mm Hg) 2011-04-20 07:05:00 Mem orial [place] Systolic (mm Hg) 2011-04-20 07:05:00 Nirmal rial Jona Diastolic (mm Hg) 2011-04-20 06:01:00 Mem orial [place] Heart Rate 2011-04-20 06:01:00 [facility] [place] Systolic (mm Hg) 2011-04-20 06:01:00 Nirmal rial Jona Respitory Rate 2011-04-20 06:01:00 Memori al [place] Weight 2011-04-20 02:25:00 [facility] [place] Systolic (mm Hg) 2011-04-20 02:25:00 Nirmal rial Jona Temperature Oral (F) 2011-04-20 02:25:00 98.0 F [facility] [place] Respitory Rate 2011-04-20 02:25:00 Memori al [place] Heart Rate 2011-04-20 02:25:00 [facility] [place] Diastolic (mm Hg) 2011-04-20 02:25:00 Mem orial Jona Temperature Oral (F) 2011-03-26 06:05:00 98.0 F [facility] [place] Respitory Rate 2011-03-26 06:05:00 Memori al Jona Heart Rate 2011-03-26 06:05:00 [facility] [place] Systolic (mm Hg) 2011-03-26 06:05:00 Nirmal rial [place] Diastolic (mm Hg) 2011-03-26 06:05:00 Mem orial [place] Height 2011-03-26 01:58:00 160.02 cm [facility] [place] Weight 2011-03-26 01:58:00 [facility] [place] Temperature Oral (F) 2011-03-26 01:58:00 99.0 F [facility] [place] Diastolic (mm Hg) 2011-03-26 01:58:00 Mem orial [place]ona Systolic (mm Hg) 2011-03-26 01:58:00 Nirmal rial Jona Respitory Rate 2011-03-26 01:58:00 Memori al [place] Heart Rate 2011-03-26 01:58:00 [facility] [place] Diastolic (mm Hg) 2011-02-11 15:37:00 Mem orial [place] Respitory Rate 2011-02-11 15:37:00 Memori al [place] Systolic (mm Hg) 2011-02-11 15:37:00 Nirmal rial [place] Heart Rate 2011-02-11 15:37:00 [facility] [place] Temperature Oral (F) 2011-02-11 15:37:00 98.1 F [facility] [place] Diastolic (mm Hg) 2011-02-11 11:53:00 Mem orial [place] Systolic (mm Hg) 2011-02-11 11:53:00 Nirmal rial Jona Temperature Oral (F) 2011-02-11 11:53:00 97.5 F [facility] [place] Heart Rate 2011-02-11 11:53:00 [facility] [place] Respitory Rate 2011-02-11 11:53:00 Memori al [place] Height 2011-02-11 07:38:00 162.56 cm [facility] [place] Weight 2011-02-11 07:38:00 [facility] [place] Respitory Rate 2011-02-11 07:38:00 Memori al [place] Temperature Oral (F) 2011-02-11 07:38:00 98.0 F [facility] [place] Heart Rate 2011-02-11 07:38:00 [facility] [place] Systolic (mm Hg) 2011-02-11 07:38:00 Nirmal rial [place] Diastolic (mm Hg) 2011-02-11 07:38:00 Mem orial [place] Weight 2011-02-11 02:32:00 [facility] [place] Height 2011-02-11 02:32:00 162.56 cm [facility] [place] Diastolic (mm Hg) 2011-01-15 16:44:00 Mem orial [place] Systolic (mm Hg) 2011-01-15 16:44:00 Nirmal rial Jona Temperature Oral (F) 2011-01-15 16:44:00 97.0 F [facility] [place] Heart Rate 2011-01-15 16:44:00 [facility] [place] Respitory Rate 2011-01-15 16:44:00 Memori al [place]ona Temperature Oral (F) 2011-01-15 12:18:00 97.2 F [facility] [place] Respitory Rate 2011-01-15 12:18:00 Memori al [place] Heart Rate 2011-01-15 12:18:00 [facility] [place] Diastolic (mm Hg) 2011-01-15 12:18:00 Mem orial [place] Systolic (mm Hg) 2011-01-15 12:18:00 Nirmal rial [place]ona Respitory Rate 2011-01-15 09:30:00 Memori al [place] Systolic (mm Hg) 2011-01-15 09:30:00 Nirmal rial [place] Heart Rate 2011-01-15 09:30:00 [facility] [place] Temperature Oral (F) 2011-01-15 09:30:00 97.9 F [facility] [place] Diastolic (mm Hg) 2011-01-15 09:30:00 Mem orial [place] Height 2011-01-15 01:35:00 162.56 cm [facility] [place] Weight 2011-01-15 01:35:00 [facility] [place] Height 2011-01-14 20:07:00 162.56 cm [facility] [place] Weight 2011-01-14 20:07:00 [facility] [place] Systolic (mm Hg) 2010-12-22 18:51:00 Nirmal rial [place] Diastolic (mm Hg) 2010-12-22 18:51:00 Mem orial [place] Peripheral Pulse 2010-12-22 18:51:00 Nirmal rial [place] Rate Respitory Rate 2010-12-22 18:51:00 Memori al [place] Height 2010-12-22 16:57:00 162.56 cm [facility] [place] Weight 2010-12-22 16:57:00 [facility] [place] Temperature Oral (F) 2010-12-22 16:57:00 98.2 F [facility] [place] Respitory Rate 2010-12-22 16:57:00 Memori al [place] Peripheral Pulse 2010-12-22 16:57:00 Nirmal rial [place] Rate Diastolic (mm Hg) 2010-12-22 16:57:00 Mem orial [place] Systolic (mm Hg) 2010-12-22 16:57:00 Nirmal rial [place]ona Procedures Procedure Date / Time Performing Clinician Source Performed [id number] 2021-05-18 00:00:00 [facility] ANNA MARIE [place] [facility] [id number] 2021-05-18 00:00[facility] [place] [facility] [id number] 2021-05-17 00:00:00 [facility] [place] [facility] [id number] 2021-05-17 00:00:00 [facility] [place] [facility] CT ABDOMEN PELVIS W 2018-11-26 19:21:58 Edgard Olsen [facility] CONTRAST [facility] XR CHEST 2 VW 2018-11-26 17:43:17 Edgard Olsen [facility] LIPASE 2018-11-26 17:28:00 Edgard Olsen [facility] TROPONIN I 2018-11-26 17:28:00 Edgard Olsen [facility] FREE T4 2018-11-26 17:28:00 Edgard Olsen [facility] THYROID STIMULATING 2018-11-26 17:28:00 Edgard Olsen [facility] HORMONE [facility] HEPATIC FUNCTION PANEL 2018-11-26 17:28:00 Edgard Olsen [facility] ([id number]) (ALB,T.PRO,BILI [facility] T,BU/BC,ALT,AST,ALK PHOS) BASIC METABOLIC PANEL (NA, 2018-11-26 17:28:00 Edgadr Olsen [facility] K, CL, CO2, GLUCOSE, BUN, Medica l Branch CREATININE, CA) CBC WITH DIFFERENTIAL 2018-11-26 17:28:00 [facility] 2018-11-26 17:28:00 Edgard Olsen [facility] ACTIVATED PARTIAL THRMPLAS 2018-11-26 17:28:00 Edgard Olsen [facility] URINALYSIS 2018-11-26 17:28:00 Edgard Olsen [facility] N-TERMINAL PRO-BNP 2018-11-26 17:28:00 Edgard Olsen [facility] EKG-12 LEAD 2018-11-26 16:54:30 Edgard Olsen [facility] CONSENT/REFUSAL FOR 2018-11-26 16:18:12 Doctor Unassigned, Dayron [facility] DIAGNOSIS AND TREATMENT [facility] Appendectomy [facility] Cholecystectomy [facility] Partial hysterectomy [facility] Encounters Start End Encounter Admission Attending Care Care Encounter Source Date/Time Date/Time Type Type Clinicians Facility Department ID 2021-03-24 Outpatient nullFlavo [id number] Memoria 02:56:19 r [facility] 13 l [place] 2021-05-25 2021-05-[address] [facility] [id number] [place] 00:00:00 00:00:00 CRUZ 860 Method i 2021-05-09 2021-05-22 Inpatient EM Bhuriwala, [facility] TELE [id number] [facility] 01:19:00 11:26:00 Ali [id number] [facility] 2021-05-09 2021-05-22 Inpatient EM Bhalvarezwala, [facility] TELE [id number] [facility] 01:19:00 11:26:00 Mary 79 [facility] 2021-05-08 2021-05-08 Outpatient UNKNOWN HCANW REF [id number] [facility] 17:13:00 17:13:00 [id number] [facility] 2021-05-08 2021-05-08 Emergency EM Phil Li [facility] DEWAYNE [id number] [facility] 14:21:00 14:21:00 [id number] [facility] 2021-02-17 2021-02-20 Inpatient UCHE, [facility] [id number] [place] 00:00:00 00:00:00 MEDINA 600 Meth yu 2021-01-19 2021-01-19 Emergency ER CAT, [facility] Emergency [id number] [facility] 11:27:00 16:55:00 CHRISTINE 2021-01-19 2021-01-19 Emergency SOCO, [facility] [id number] [place] [address] 00:00:00 00:00:00 MESHA Patrick i 2018-11-26 2018-11-26 Emergency [facility] [id number] [facility] 11:32:46 15:11:00 Edgard Medley [id number] [facility]y of [place] [id number] [facility] [id number] [facility] 084 [place] 2018-11-26 2018-11-26 Emergency [facility] [id number] 11:32:46 15:11:00 Edgard Medley [id number] [place] [id number] [place] [id number] [facility] 2018-11-26 2018-11-26 Orders Doctor RASHID [id number] Univers 00:00:00 00:00:00 Only Unassigned, [place]O [id number] [facility]y of [facility] [id number] Mane [id number] [facility] 009 Branch 2018-11-26 2018-11-26 Orders Doctor RASHID [id number] 00:00:00 00:00:00 Only Unassigned, [place]O [id number] [facility] [id number] 2017-02-26 2017-02-26 Emergency [facility] [id number] Memoria 00:38:00 06:55:00 princess Tenorio 03 [facility] 2017-02-25 2017-02-25 Emergency [facility] [id number] Memoria 04:49:00 07:35:00 princess Tenorio 02 [facility] 2017-01-25 2017-01-26 Observatio [facility] [id number] Memoria 01:53:00 19:35:00 n princess Tenorio [facility] 2016-12-27 2016-12-27 Emergency nullFlavo [facility] [id number] Memoria 04:03:00 06:05:00 r [place] 00 [facility] 2012-02-17 2012-02-17 Outpatient nullFlavo [id number] Memoria 10:40:00 10:40:00 r [facility] 28 [facility] 2012-02-06 2012-02-06 YEIMY nullFlavo [id number] Memoria 09:48:00 13:40:00 r [facility] 99 [facility] 2011-11-28 2011-11-28 Emergency nullFlavo [id number] Memoria 21:26:00 23:53:00 r [facility] 27 [facility] 2011-10-24 2011-10-25 Emergency nullFlavo [id number] Memoria 21:32:00 01:46:00 r [facility] 26 christiano [place] 2011-05-22 2011-05-23 Emergency nullFlavo [id number] Memoria 22:37:00 02:42:00 r [facility] 25 [facility] 2011-05-07 2011-05-07 Emergency nullFlavo [id number] Memoria 17:58:00 20:39:00 r [facility] 24 [facility] 2011-04-19 2011-04-20 Emergency nullFlavo [id number] Memoria 20:21:00 01:06:00 r [facility] 23 christiano [place] 2011-03-25 2011-03-26 Emergency nullFlavo [id number] Memoria 19:49:00 00:20:00 r [facility] 22 christiano [place] 2011-02-11 2011-02-11 OU nullFlavo [id number] Memoria 01:12:00 13:57:00 r [facility] 21 christiano [place] 2011-01-14 2011-01-15 OU nullFlavo [id number] Memoria 18:50:00 13:20:00 r [facility] 20 [place] 2010-12-22 2010-12-22 Emergency nullFlavo [id number] Memoria 11:48:00 13:53:00 r [facility] 19 [place] 2010-10-09 2010-10-13 Inpatient nullFlavo [id number] Memoria 00:45:00 15:50:00 r [facility] 18 [facility] 2010-10-07 2010-10-07 Emergency nullFlavo [id number] Memoria 14:23:00 15:25:00 r [facility] 17 [facility] 2010-07-21 2010-07-21 Emergency nullFlavo MH [id number] Memoria 18:00:00 21:00:00 r [facility] 16 [facility] 2010-01-05 2010-01-07 OU nullFlavo [id number] Memoria 17:26:00 11:00:00 r [facility] 14 [facility] 2010-01-03 2010-01-03 Emergency nullFlavo [id number] Memoria 13:17:00 17:38:00 r [facility] 12 [facility] 2009-10-31 2009-11-02 OU nullFlavo [id number] Memoria 20:45:00 17:25:00 r [facility] 11 [facility] 2009-10-09 2009-10-09 Emergency nullFlavo MH [id number] Memoria 22:21:00 22:56:00 r [facility] 10 [facility] 2009-09-20 2009-09-21 Emergency nullFlavo [id number] Memoria 21:40:00 03:42:00 r [place] 09 [facility] 2009-08-15 2009-08-16 Emergency nullFlavo [id number] Memoria 21:04:00 01:02:00 r [facility] 08 [facility] Results Test Description Test Time Test Comments Results Result Comments Source SARS-CoV-2 (COVID-19) RNA [Presence] in Respiratory sp ecimen by 2021-05-25 20:28:41 RYAN with probe detection Test Item Value Reference Range Interpretation Comme nts SARS-CoV-2 (COVID-19) RNA [Presence] in Respiratory Not detected No t-Detected specimen by RYAN with probe detection (test code = 67160-8) CBC W/AUTO [id number] 09:38:00 Test Item Value Reference Range Interpretation Comments WHITE BLOOD CELL (test code = 6.4 K/mm3 4.1-12.1 N WBC) RED BLOOD CELL (test code = RBC) 3.06 M/mm3 3.8-5.5 L HEMOGLOBIN (test code = HGB) 8.5 G/DL 10.6-15.8 L HEMATOCRIT (test code = HCT) 26.9 % 31.8-47.4 L MEAN CELL VOLUME (test code = 87.9 fL 80.1-101.1 N MCV) MEAN CELL HGB (test code = MCH) 27.8 pg 25.3-35.3 N MEAN CELL HGB CONCETRATION (test 31.6 G/DL 32.7-35.1 L code = MCHC) RED CELL DISTRIBUTION WIDTH 14.0 % 12.2-16.4 N (test code = RDW) RED CELL DISTRIBUTION WIDTH 45.4 fL 36.4-46.3 N (test code = RDW-SD) PLATELET COUNT (test code = PLT) 352 K/mm3 155-337 H MEAN PLATELET VOLUME (test code 9.6 fL 6.8-11.2 N = MPV) GRANULOCYTE % (test code = GR%) 52.3 % 37.8-82.6 N IMMATURE GRANULOCYTE % (test 0.2 % 0.0-2.0 N code = IG%) LYMPHOCYTE % (test code = LY%) 32.8 % 14.1-45.4 N MONOCYTE % (test code = MO%) 7.1 % 2.5-11.7 N EOSINOPHIL % (test code = EO%) 7.4 % 0.0-6.2 H BASOPHIL % (test code = BA%) 0.2 % 0.0-2.1 N NUCLEATED RBC % (test code = 0.0 /100WBC% 0.0-1.0 N NRBC%) GRANULOCYTE # (test code = GR#) 3.33 k/mm3 2.0-13.7 N IMMATURE GRANULOCYTE # (test 0.01 K/mm3 0.00-0.03 N code = IG#) LYMPHOCYTE # (test code = LY#) 2.08 K/mm3 0.6-3.8 N MONOCYTE # (test code = MO#) 0.45 K/mm3 0.11-0.59 N EOSINOPHIL # (test code = EO#) 0.47 K/mm3 0.0-0.4 H BASOPHIL # (test code = BA#) 0.01 K/mm3 0.0-0.1 N NUCLEATED RBC # (test code = 0.00 K/mm3 0.0-0.05 N NRBC#) GLUCOSE BEDSIDE [id number] 22:16:00 Test Item Value Reference Range Interpretation Comments GLUCOSE BEDSIDE TESTING (test code 167 MG/DL 70-119 H = GLUBED) GLUCOSE BEDSIDE [id number] 21:26:00 Test Item Value Reference Range Interpretation Comments GLUCOSE BEDSIDE TESTING (test code 108 MG/DL 70-119 N = GLUBED) GLUCOSE BEDSIDE [id number] 15:57:00 Test Item Value Reference Range Interpretation Comments GLUCOSE BEDSIDE TESTING (test code 266 MG/DL 70-119 H = GLUBED) PLEURAL FLD CELL [id number] 15:10:00 Test Item Value Reference Range Interpretation Comments PLEURAL FLD COLOR STRAW DESCRIP. COLORLESS (test code = COLPL) PLEURAL FLD CLEAR DESCRIP. CLEAR APPEARANCE (test code = APPPL) PLEURAL FLD WBC 182 #/mm3 0-1000 N (test code = WBCPL) PLEURAL FLD RBC 202 #/mm3 0-1000 N (test code = RBCPL) PLEURAL FLD POLY 25 % (test code = POLYPL) PLEURAL FLD 33 % 50-100 L LYMPHOCYTE (test code = LYMPHPL) PLEURAL FLD 42 % 0-10 H MONOCYTE (test code = MONOPL) PLEURAL FLD FEW NONE PLASMA CELL (test code = PLAPL) PLEURAL FLD MOD NONE MACROPHAGE (test code = MACPL) PLEURAL FLD DIFF PATH REVIEW. NORMAL COMMENTS: N o atypical COMMENT (test COMMENT cells seen. Se e also code = COMPL) concurrentcyto logy (R87-29) for ad ditional information. PATHOLOGIST: EVELYN MCCORMICK MD Entered by: [email or web address], on 05/18/21, 954. Specimen comments: RIGHT PLEURAL FLUID* DOES THIS SPECIMEN HAVE CYTO/PATH ORDERS ? NOPLEURAL FLD [id number] 15:10:00 Test Item Value Reference Range Interpretation Comments PLEURAL FLD PH 8.2 Not Estab. The reference interval(s) and (test code = PHPL) other met hod performance specificationsh ave not been established for this body fluid. The test result must beintegrated in to the clinical contex t for interpretation. Performed At: [facility] [place], [place] [id number] ra Rozina [place] Ph:[phone] Specimen comments: RIGHT PLEURAL FLUID* DOES THIS SPECIMEN HAVE CYTO/PATH ORDERS ? NOGLUCOSE BEDSIDE [id number] 10:51:00 Test Item Value Reference Range Interpretation Comments GLUCOSE BEDSIDE TESTING (test code 248 MG/DL 70-119 H = GLUBED) GLUCOSE BEDSIDE [id number] 07:00:00 Test Item Value Reference Range Interpretation Comments GLUCOSE BEDSIDE TESTING (test code 209 MG/DL 70-119 H = GLUBED) GLUCOSE BEDSIDE [id number] 20:51:00 Test Item Value Reference Range Interpretation Comments GLUCOSE BEDSIDE TESTING (test code 341 MG/DL 70-119 H = GLUBED) GLUCOSE BEDSIDE [id number] 15:24:00 Test Item Value Reference Range Interpretation Comments GLUCOSE BEDSIDE TESTING (test code 179 MG/DL 70-119 H = GLUBED) GLUCOSE BEDSIDE [id number] 10:45:00 Test Item Value Reference Range Interpretation Comments GLUCOSE BEDSIDE TESTING (test code 190 MG/DL 70-119 H = GLUBED) BASIC METABOLIC [id number] 07:54:00 Test Item Value Reference Range Interpretation Comments SODIUM (test code = 137.0 mmol/L 133-144 N NA) POTASSIUM (test 3.7 mmol/L 3.5-5.1 N code = K) CHLORIDE (test code 100 mmol/L 95-105 N = CL) CARBON DIOXIDE 34 mmol/L 21-32 H (test code = CO2) ANION GAP (test 3.0 GAP calc 4.0-15.0 L code = GAP) GLUCOSE (test code 177 MG/DL 70-110 H = GLU) BLOOD UREA NITROGEN 26 MG/DL 7-18 H (test code = BUN) CREATININE (test 0.72 MG/DL 0.55-1.30 N Results may be code = CREAT) depressed if p atient is takingN-Acetylc ystei ne (NAC) and Metamizole (Dipyrone). CALCIUM (test code 7.6 MG/DL 8.5-10.1 L = CA) INDEX HEMOLYSIS 1 NORMAL <10 MG See_Comment [Automat ed message] (test code = Index/DL The system jaki brady HEMINDEX) generated this result transmit saran reference range : 1 NORMAL. The reference range was not used to interpret this result as normal/abnormal . INDEX ICTERIC (test 1 NORMAL <2 MG See_Comment [Auto mated message] code = ICTINDEX) Index/DL The system which generated this result transmit saran reference range : 1 NORMAL. The reference range was not used to interpret this result as normal/abnormal . INDEX LIPEMIA (test 1 NORMAL <50 MG See_Comment [Aut omated message] code = LIPINDEX) Index/DL The system which generated this result transmit saran reference range : 1 NORMAL. The reference range was not used to interpret this result as normal/abnormal . [id number] 07:54:00 Test Item Value Reference Range Interpretation Comments MAGNESIUM (test code = MAG) 2.4 MG/DL 1.6-2.6 N CBC W/AUTO [id number] 07:27:00 Test Item Value Reference Range Interpretation Comments WHITE BLOOD CELL (test code = 7.9 K/mm3 4.1-12.1 N WBC) RED BLOOD CELL (test code = RBC) 2.76 M/mm3 3.8-5.5 L HEMOGLOBIN (test code = HGB) 7.7 G/DL 10.6-15.8 L HEMATOCRIT (test code = HCT) 24.2 % 31.8-47.4 L MEAN CELL VOLUME (test code = 87.7 fL 80.1-101.1 N MCV) MEAN CELL HGB (test code = MCH) 27.9 pg 25.3-35.3 N MEAN CELL HGB CONCETRATION (test 31.8 G/DL 32.7-35.1 L code = MCHC) RED CELL DISTRIBUTION WIDTH 13.9 % 12.2-16.4 N (test code = RDW) RED CELL DISTRIBUTION WIDTH 44.5 fL 36.4-46.3 N (test code = RDW-SD) PLATELET COUNT (test code = PLT) 366 K/mm3 155-337 H MEAN PLATELET VOLUME (test code 9.4 fL 6.8-11.2 N = MPV) GRANULOCYTE % (test code = GR%) 61.1 % 37.8-82.6 N IMMATURE GRANULOCYTE % (test 0.4 % 0.0-2.0 N code = IG%) LYMPHOCYTE % (test code = LY%) 25.0 % 14.1-45.4 N MONOCYTE % (test code = MO%) 10.4 % 2.5-11.7 N EOSINOPHIL % (test code = EO%) 2.7 % 0.0-6.2 N BASOPHIL % (test code = BA%) 0.4 % 0.0-2.1 N NUCLEATED RBC % (test code = 0.0 /100WBC% 0.0-1.0 N NRBC%) GRANULOCYTE # (test code = GR#) 4.85 k/mm3 2.0-13.7 N IMMATURE GRANULOCYTE # (test 0.03 K/mm3 0.00-0.03 N code = IG#) LYMPHOCYTE # (test code = LY#) 1.98 K/mm3 0.6-3.8 N MONOCYTE # (test code = MO#) 0.82 K/mm3 0.11-0.59 H EOSINOPHIL # (test code = EO#) 0.21 K/mm3 0.0-0.4 N BASOPHIL # (test code = BA#) 0.03 K/mm3 0.0-0.1 N NUCLEATED RBC # (test code = 0.00 K/mm3 0.0-0.05 N NRBC#) GLUCOSE BEDSIDE [id number] 06:27:00 Test Item Value Reference Range Interpretation Comments GLUCOSE BEDSIDE TESTING (test code 167 MG/DL 70-119 H = GLUBED) GLUCOSE BEDSIDE [id number] 19:47:00 Test Item Value Reference Range Interpretation Comments GLUCOSE BEDSIDE TESTING (test code 188 MG/DL 70-119 H = GLUBED) GLUCOSE BEDSIDE [id number] 18:14:00 Test Item Value Reference Range Interpretation Comments GLUCOSE BEDSIDE TESTING (test code 149 MG/DL 70-119 H = GLUBED) GLUCOSE BEDSIDE [id number] 15:59:00 Test Item Value Reference Range Interpretation Comments GLUCOSE BEDSIDE TESTING (test code = 66 MG/DL 70-119 L GLUBED) GLUCOSE BEDSIDE [id number] 15:21:00 Test Item Value Reference Range Interpretation Comments GLUCOSE BEDSIDE 44 MG/DL 70-119 LL LOW/HIGH JAN RT VALUE - TESTING (test ACTION REQUIRE DINTERPRETATION code = GLUBED) ALERT>Iterpre t whole blood glucose meter r esults <100 mg/dl withcauti on. Glucose results with e Luccl-gu-Uhuz meters havea ne gative bias. Glucose is 11% higher in plasma compared towhole blood. At glucose conc entrations <100 mg/dl, wholeblo od glucose results may be 15-35% lower. GLUCOSE BEDSIDE [id number] 10:31:00 Test Item Value Reference Range Interpretation Comments GLUCOSE BEDSIDE TESTING (test code 241 MG/DL 70-119 H = GLUBED) GLUCOSE BEDSIDE [id number] 06:50:00 Test Item Value Reference Range Interpretation Comments GLUCOSE BEDSIDE TESTING (test code 201 MG/DL 70-119 H = GLUBED) COMPREHENSIVE METABOLIC [id number] 06:27:00 Test Item Value Reference Range Interpretation Comments SODIUM (test code = 138.0 mmol/L 133-144 N NA) POTASSIUM (test code 3.5 mmol/L 3.5-5.1 N = K) CHLORIDE (test code 101 mmol/L 95-105 N = CL) CARBON DIOXIDE (test 35 mmol/L 21-32 H code = CO2) ANION GAP (test code 2.0 GAP calc 4.0-15.0 L = GAP) GLUCOSE (test code = 211 MG/DL 70-110 H GLU) BLOOD UREA NITROGEN 26 MG/DL 7-18 H (test code = BUN) GLOMERULAR 110 estGFR >60 The estimated FILTRATION RATE glomerular (test code = GFR) filtration rate is computed usingpatient ra ce, age, sex, and s em creatinine. If any of theneeded da ta elements are mi ssing the Laboratory can notcompute an estimation of t he glomerular filtration rate .The GFR value units = ml/min/1.73 met er squared. EstimatedGFR va lues above 60 should be interpreted as >60, not anexact number.--- DRUG DOSAGE ALERT -- - Drug dosage adjustments uti lize different calculationpara meter s. CREATININE (test 0.57 MG/DL 0.55-1.30 N Results may be code = CREAT) depressed if p atient is takingN-Acetylc ystei ne (NAC) and Metamizole (Dipyrone). TOTAL PROTEIN (test 5.4 G/DL 6.4-8.2 L code = PROT) ALBUMIN (test code = 2.1 G/DL 3.4-5.0 L ALB) ALBUMIN/GLOBULIN 0.6 RATIO 1.2-2.2 L RATIO (test code = A/G) CALCIUM (test code = 7.4 MG/DL 8.5-10.1 L CA) BILIRUBIN TOTAL 0.19 MG/DL 0.00-1.00 N (test code = BILT) BILIRUBIN DIRECT < 0.10 MG/DL 0.00-0.30 N (test code = BILD) BILIRUBIN INDIRECT CALC SANDRA MG/DL 0.2-1.3 L (test code = BILIND) SGOT/AST (test code 14 Unit/L 15-37 L = AST) SGPT/ALT (test code 18 Unit/L 12-78 N = ALT) ALKALINE PHOSPHATASE 61 Unit/L 45-117 N TOTAL (test code = ALKP) INDEX HEMOLYSIS 1 NORMAL <10 See_Comment [Automated message] (test code = MG Index/DL The system [employer] HEMINDEX) generated this result transmit saran reference range : 1 NORMAL. The reference range was not used to interpret this result as normal/abnormal . INDEX ICTERIC (test 1 NORMAL <2 MG See_Comment [Auto mated message] code = ICTINDEX) Index/DL The system which generated this result transmit saran reference range : 1 NORMAL. The reference range was not used to interpret this result as normal/abnormal . INDEX LIPEMIA (test 1 NORMAL <50 See_Comment [Automa saran message] code = LIPINDEX) MG Index/DL The system which generated this result transmit saran reference range : 1 NORMAL. The reference range was not used to interpret this result as normal/abnormal . [id number] 06:27:00 Test Item Value Reference Range Interpretation Comments MAGNESIUM (test code = MAG) 2.1 MG/DL 1.6-2.6 N CBC W/AUTO [id number] 05:55:00 Test Item Value Reference Range Interpretation Comments WHITE BLOOD CELL (test code = 6.5 K/mm3 4.1-12.1 N WBC) RED BLOOD CELL (test code = RBC) 2.71 M/mm3 3.8-5.5 L HEMOGLOBIN (test code = HGB) 7.5 G/DL 10.6-15.8 L HEMATOCRIT (test code = HCT) 23.9 % 31.8-47.4 L MEAN CELL VOLUME (test code = 88.2 fL 80.1-101.1 N MCV) MEAN CELL HGB (test code = MCH) 27.7 pg 25.3-35.3 N MEAN CELL HGB CONCETRATION (test 31.4 G/DL 32.7-35.1 L code = MCHC) RED CELL DISTRIBUTION WIDTH 13.8 % 12.2-16.4 N (test code = RDW) RED CELL DISTRIBUTION WIDTH 43.7 fL 36.4-46.3 N (test code = RDW-SD) PLATELET COUNT (test code = PLT) 335 K/mm3 155-337 N MEAN PLATELET VOLUME (test code 9.4 fL 6.8-11.2 N = MPV) GRANULOCYTE % (test code = GR%) 54.8 % 37.8-82.6 N IMMATURE GRANULOCYTE % (test 0.2 % 0.0-2.0 N code = IG%) LYMPHOCYTE % (test code = LY%) 33.6 % 14.1-45.4 N MONOCYTE % (test code = MO%) 8.4 % 2.5-11.7 N EOSINOPHIL % (test code = EO%) 2.8 % 0.0-6.2 N BASOPHIL % (test code = BA%) 0.2 % 0.0-2.1 N NUCLEATED RBC % (test code = 0.0 /100WBC% 0.0-1.0 N NRBC%) GRANULOCYTE # (test code = GR#) 3.59 k/mm3 2.0-13.7 N IMMATURE GRANULOCYTE # (test 0.01 K/mm3 0.00-0.03 N code = IG#) LYMPHOCYTE # (test code = LY#) 2.20 K/mm3 0.6-3.8 N MONOCYTE # (test code = MO#) 0.55 K/mm3 0.11-0.59 N EOSINOPHIL # (test code = EO#) 0.18 K/mm3 0.0-0.4 N BASOPHIL # (test code = BA#) 0.01 K/mm3 0.0-0.1 N NUCLEATED RBC # (test code = 0.00 K/mm3 0.0-0.05 N NRBC#) GLUCOSE BEDSIDE [id number] 20:06:00 Test Item Value Reference Range Interpretation Comments GLUCOSE BEDSIDE TESTING (test code 262 MG/DL 70-119 H = GLUBED) - SP THORACENTESIS [id number] 17:11:00 [facility] : 1965 Sex: F Patient Name: HANANE PIEDRA Unit No: [id number] EXAMS: CPT CODE: [id number] SP THORACENTESIS W/IMAG [id number] EXAMINATION: IMAGE-GUIDED THORACENTESIS. LOCATION: T 18 HISTORY: Pleural effusion INSTRUCTIONAL TECHNOLOGY FACILITATOR: Medina Silvestre PA-C ASSISTED BY: None SEDATION: The patient did not require conscious sedation for the procedure. ANTIBIOTICS: None. Not indicated. CONTRAST: None. TECHNIQUE: The risks, benefits, and alternatives were discussed and informed consent was obtained. Prior to beginning the procedure, Henning Protocol was used to confirm the patient's identity and planned procedure. Sterile barriers including cap, mask, hand hygiene, sterile sarah ves, sterile drape and cutaneous antisepsis were used. The patient's left chest was examined with ultrasound and free-flowing pleural fluid was identified. The overlying skin was anesthetized with lidocaine. Using real-time ultrasound guidance, a one-step needle was advanced into the pleural space. Approximately 750 mL of clear yellow fluid was drained. Samples were not sent for lab analysis. At the conclusion of the procedure, the catheter was removed and a sterile dressing applied to the site. ESTIMATED BLOOD LOSS: Less than 10 milliliters. COMPLICATIONS: None. [facility] FINDINGS: Ultrasound demonstrated a moderate amount of pleural fluid. IMPRESSION: Successful image-guided left sided thoracentesis. PLAN: Post procedure chest radiograph will be obtained. at 1711 Reported and signed by: Agustin Torres MD [facility] NAME: HANANE PIEDRA Interventional Lab PHYS: MCDKAMedina Alston [address] [place] [address] : 1965 AGE:55 SEX: F [place] [address] LOC: B.160 W PHONE #: EXAM DATE: 05/18/2021 STATUS: ADM IN FAX #: RAD #: D/C DT PAGE 1 Signed Report (CONTINUED) Patient Name: HANANE PIEDRA Unit No: [id number] EXAMS: CPT CODE: [id number] SP THORACENTESIS W/IMAG [id number] <Continued> CC:Mary Portillo MD; Medina ALBA; Jose Hernandez MD Dictated Date/Time: 05/18/2021 (1710) Technologist: Breonna Calvert Fluoro Time: DAP (Gy m2): Air Kerma (mGy): Trnscrpt: 05/18/2021 (1710) [email or web address] [facility] NAME: HANANE PIEDRA Interventional Lab PHYS: [id number] - Medina Silvestre [address] [place] [address] : 1965 AGE: 55 SEX: F [place], [place] [address] LOC: B.160 W PHONE #: EXAM DATE: 05/18/2021 STATUS: ADM IN FAX #: RAD #: D/C DT PAGE 2 Signed ReportGLUCOSE BEDSIDE TESTING 2021-05-18 14:54:00 Test Item Value Reference Range Interpretation Comments GLUCOSE BEDSIDE TESTING (test code 204 MG/DL 70-119 H = GLUBED) - XR CHEST 1 [id number] 14:04:00 [facility] : 1965 Sex: F FAX: Mary Byrd MD [phone] [place]: C St: ADM FAX: Medina Silvestre FAX: Jose Valencia MD [phone] Patient Name: HANANE PIEDRA Unit No: [id number] EXAMS: CPT CODE: [id number] XRCHEST 1 V 60141 C3 EXAM: - XR CHEST 1 V DATE: 05/18/2021 1:12 PM HISTORY: Pleural effusion s/p left thora COMPARISON: Chest x-ray 05/17/2021 FINDINGS: Interval decrease in the leftpleural effusion with improvement in lung aeration. No pneumothorax. at 1404 Reported and signed by: Shruthi Fermin MD CC: Mary Portillo MD; Medina Silvestre PA; Jose Hernandez MD Dictated Date/Time: 05/18/2021 (3719)Technologist: Too Cabrera Transcribed Date/Time: 05/18/2021 (6487) By: Andrea Orig Print D/T: S: 05/18/2021 (3075) SOFI [place] NAME: HANANE PIEDRA MEDICAL IMAGING PHYS: [id number] - Medina Silvestre [address] [place] [address] : 1965 AGE: 55 SEX: Joe [place], [place] [address] LOC: B.160 W PHONE #: [phone] EXAM DATE: 05/18/2021 STATUS: ADM IN FAX #: [phone] RAD NO: DC Dt: PAGE 1 Signed ReportPLEURAL FLD [id number] 11:12:00 Test Item Value Reference Range Interpretation Comments PLEURAL FLD 259 mg/dL See_Comment GLUCOSE (test code = GLUPL) : BODY FLU ID TYPE : GLUCOSE : : ___: : : Amniot ic Fluid : 45 - 76 : : ___: : : Bile, Clear : < 5 : : ___: : : Bile, Yellow : < 8 : : ___: : : Lymph : 48 - 200 : : ___: : : Nasal Secretion : < 10 : : ___: : : Pleura l Fluid : 65 - 99 : : ___: : : Saliva : < 2 : : (Mixed Glands) : : : ___: : : Sweat : < 7 : : ___: : : Synovi al Fluid : 65 - 99 : : ___: : : Tears : 76 - 288 : : ___: : Christiano Morales V. Reference Inter vals for Adults and Children 2007. Ninth edition (V9.1) [facility]; [place]: [place] 2008.The reference inter vals and other method performancespec ifications have not been establ ished for this test. Thetest r esult should be integrated into the clinical contextfor inte rpretation. [Automated mess age] The system which generated this result transmitted ref erence range: (). The referen ce range was not used to interpr et this result as normal/abnor mal. Specimen comments: RIGHT PLEURAL FLUIDPLEURAL FLD TOTAL [id number] 11:12:00 Test Item Value Reference Range Interpretation Comments PLEURAL FLD TOTAL 1.6 g/dL See_Comment PROTEIN (test code = PROTPL) _ : BODY FLUID TYPE : TOTAL PROTEIN : : ___: _: : Amniotic Fluid : <0.4 : : ___: _: : : Nonma lignant: <3.0 : : Asci tic Fluid : Malignant: >3.0 : : ___: _: : Bile, Clear : <0.9 : : ___: _: : Bile, Yellow : 0.2 - 0.6 : : ___: _: : Lymph : 2.2 - 6.0 : : ___: _: : Human Milk : 1.9 - 2.0 : : ___: : : Nasal Secretion : 0.1 - 3.5 : : ___: _: : Pancreatic : 0.0 - 0.1 : : Juice : (post stimulation) : : ___: _: : : Trans udate: <0.3 : : Pleu ral Fluid : Exudate: >0.3 : : ____: __: : Saliva : 0.1 - 0.2 : : (Mixe d Glands) : : : ___: _: : Synovial Fluid : <2.5 : : ___: _: : Tears : 0.8 - 0.9 : : ___: _: Michele W, Christiano V. Ref erence Intervals for Adults and Children 2007. Ninth Edition (V9.1) [employer] , [facility]; [place]: Ju [place] 2008.The method performa nce specifications have not beenestablished for this test in body fl uid. The test resultshou ld be integrated into the clinical contex t forinterpretati on. [Automated mess age] The system which ge nerated this result tra nsmitted reference range : (). The reference range was not used to interpr et this result as justina l/abnormal. Specimen comments: RIGHT PLEURAL FLUIDPLEURAL FLD [id number] 11:12:00 Test Item Value Reference Range Interpretation Comments PLEURAL FLD 71 IU/L See_Comment LDH (test code = LDHPL) : BODY FLUID TYPE : LDH : : ___: : : : Nonmalignant: < 60% : : : of the ser um LDH : : Ascitic Fluid : Malig nant: > 60% : : : of the serum LDH : : ___: : : Gastric Juice : < 35 : : ___: : : : Transudate: <200 : : Pleural Fluid : Exudate: >200 : : ___: : : Saliva : 113 - 609 : : (Mix ed Glands) : : : ___: : : Synovial Fluid : <240 : : ___: : Nic Morales V. Reference Inter vals f or Adults and Children 2007. Ninth Edition (V9.1) [employer], [facility]; [place]: Ju [place] 2008.The reference inter vals and other method performa ncespecifications have not been e stablished for this test. Thet est result should be integrated i nto the clinical contextfor interpretation. Performed At: [facility] [address] [id number] Jose Lou MD Ph:[phone] [ Automated message] The sy stem which generated this result transmitted ref erence range: (). The reference r kehinde was not used to interpret th is result as normal/abnormal . Specimen comments: RIGHT PLEURAL FLUIDGLUCOSE BEDSIDE [id number] 10:15:00 Test Item Value Reference Range Interpretation Comments GLUCOSE BEDSIDE TESTING (test code 180 MG/DL 70-119 H = GLUBED) CYTOLOGY NON [id number] 08:40:00 Test Item Value Reference Range Interpretation Comments CYTOLOGY NON DIRECTOR OF STRATEGIC PARTNERSHIPS (test code = CR) RUN DATE: 05/18/21 [place] - LAB PAGE 1 RUN TIME: 0840 Specimen Inquiry RUN USER: INTERFACE NERY ENT: HANANE PIEDRA LOC: [place] U #: [id number] AGE/SX: 55/F ROOM: [facility] RE05/09/21REG DR: Mary Portillo MD : 65 BED: W DIS: STATUS: ADM IN TLOC: SPEC #: [id number] RECD: 05/17/21 STATUS: [place] RE #: [id number] NARGIS: 05/17/21-[address]: Mary Portillo MD ENTERED: 05/17/21140 SP TYPE: CYTO NGYN OTHR DR: Self Referred Anna Galdamez MD, Nitesh A MD Dasgupta MD,Gordon Carbajal MD,Al Escobar MD [place],Rylie Moreno MD, MDORDERED: [id number], [id number], ANATOMIC SPEC COPIES TO: Self Referred Anna Galdamez MD [address] [place] [address] Armen Davis MD [address] [facility] [place] [address] Mary Portillo MD [address] [place], [place] [id number] Yi DALTON,Nery [address] [place], [place] [id number] Gordon Garay MD [address] [place] [address] CONTINUED ON NEXT PAGE RUN DATE: 05/18/21 [place] - LAB PAGE 2 RUN TIME: 0840 Specimen Inquiry RUN USER: INTERFACE SPEC #: [id number] PATIENT: HANANE PIEDRA #[id number] (Continued) ------- COPIES TO: (Continued) Al Pang MD [phone] Jose Hernandez MD [address] [place] [address]. [place] [address] Rylie Blackwood MD [address] [facility] [address] [place] [address] HISTOLOGY: TISSUE ID BLK PCS ROJAS LEV / PROCEDURE DISPOSITION ____ ___ ___ ___ ___ PLFLCS A 1 4 PROCEDURES: [id number] (05/17/21-1407) [id number] (05/18/21-0834) TISSUES: A. PLEURAL FLUID (CYTOSPIN,CELL BLOCK) - RIGHT PLEURAL FLUID FINAL DIAGNOSIS PLEURAL FLUID, BILATERAL (CYTOSPINS AND CELL BLOCK): - No malignant cells identified GROSS DESCRIPTION The case is received labeled with the patient's name, HANANE PIEDRA, and medical recordnumber, accompanied by a requisition slip with the same information. Received as "RIGHT PLEURAL FLUID" is 8.5 mL of CLOUDY YELLOW fluid. Cytospins: 2Cell block: 1 [facility]/ec MICROSCOPIC DESCRIPTION A microscopic examination has been performed and the findings are incorporated in thefinal diagnosis. CONTINUED ON NEXT PAGE RUN DATE: 05/18/21 [place] - LAB PAGE 3 RUN TIME: 0840 Specimen Inquiry RUN USER: INTERFACE SPEC #: [id number] PATIENT: HANANE PIEDRA #[id number] (Continued) ------- CLINICAL INFORMATION Bilateral pleural effusions ----- Signed SIGNATURE ON FILE Lizzy Doe MD 05/18/21 0840 END OF REPORT GLUCOSE BEDSIDE [id number] 07:29:00 Test Item Value Reference Range Interpretation Comments GLUCOSE BEDSIDE TESTING (test code 173 MG/DL 70-119 H = GLUBED) COMPREHENSIVE METABOLIC [id number] 06:06:00 Test Item Value Reference Range Interpretation Comments SODIUM (test code = 137.0 mmol/L 133-144 N NA) POTASSIUM (test code 3.6 mmol/L 3.5-5.1 N = K) CHLORIDE (test code 100 mmol/L 95-105 N = CL) CARBON DIOXIDE (test 33 mmol/L 21-32 H code = CO2) ANION GAP (test code 4.0 GAP calc 4.0-15.0 N = GAP) GLUCOSE (test code = 182 MG/DL 70-110 H GLU) BLOOD UREA NITROGEN 28 MG/DL 7-18 H (test code = BUN) GLOMERULAR 148 estGFR >60 The estimated FILTRATION RATE glomerular (test code = GFR) filtration rate is computed usingpatient ra ce, age, sex, and s em creatinine. If any of theneeded da ta elements are mi ssing the Laboratory can notcompute an estimation of t he glomerular filtration rate .The GFR value units = ml/min/1.73 met er squared. EstimatedGFR va lues above 60 should be interpreted as >60, not anexact number.--- DRUG DOSAGE ALERT -- - Drug dosage adjustments uti lize different calculationpara meter s. CREATININE (test 0.44 MG/DL 0.55-1.30 L Results may be code = CREAT) depressed if p atient is takingN-Acetylc ystei ne (NAC) and Metamizole (Dipyrone). TOTAL PROTEIN (test 5.7 G/DL 6.4-8.2 L code = PROT) ALBUMIN (test code = 2.2 G/DL 3.4-5.0 L ALB) ALBUMIN/GLOBULIN 0.6 RATIO 1.2-2.2 L RATIO (test code = A/G) CALCIUM (test code = 7.7 MG/DL 8.5-10.1 L CA) BILIRUBIN TOTAL 0.15 MG/DL 0.00-1.00 N (test code = BILT) BILIRUBIN DIRECT < 0.10 MG/DL 0.00-0.30 N (test code = BILD) BILIRUBIN INDIRECT CALC SANDRA MG/DL 0.2-1.3 L (test code = BILIND) SGOT/AST (test code 12 Unit/L 15-37 L = AST) SGPT/ALT (test code 15 Unit/L 12-78 N = ALT) ALKALINE PHOSPHATASE 61 Unit/L 45-117 N TOTAL (test code = ALKP) INDEX HEMOLYSIS 1 NORMAL <10 See_Comment [Automated message] (test code = MG Index/DL The system [employer] HEMINDEX) generated this result transmit saran reference range : 1 NORMAL. The reference range was not used to interpret this result as normal/abnormal . INDEX ICTERIC (test 1 NORMAL <2 MG See_Comment [Auto mated message] code = ICTINDEX) Index/DL The system which generated this result transmit saran reference range : 1 NORMAL. The reference range was not used to interpret this result as normal/abnormal . INDEX LIPEMIA (test 1 NORMAL <50 See_Comment [Automa saran message] code = LIPINDEX) MG Index/DL The system which generated this result transmit saran reference range : 1 NORMAL. The reference range was not used to interpret this result as normal/abnormal . [id number] 06:06:00 Test Item Value Reference Range Interpretation Comments MAGNESIUM (test code = MAG) 2.3 MG/DL 1.6-2.6 N CBC W/AUTO [id number] 06:02:00 Test Item Value Reference Range Interpretation Comments WHITE BLOOD CELL (test code = 8.5 K/mm3 4.1-12.1 N WBC) RED BLOOD CELL (test code = RBC) 2.91 M/mm3 3.8-5.5 L HEMOGLOBIN (test code = HGB) 8.0 G/DL 10.6-15.8 L HEMATOCRIT (test code = HCT) 24.7 % 31.8-47.4 L MEAN CELL VOLUME (test code = 84.9 fL 80.1-101.1 N MCV) MEAN CELL HGB (test code = MCH) 27.5 pg 25.3-35.3 N MEAN CELL HGB CONCETRATION (test 32.4 G/DL 32.7-35.1 L code = MCHC) RED CELL DISTRIBUTION WIDTH 13.9 % 12.2-16.4 N (test code = RDW) RED CELL DISTRIBUTION WIDTH 43.4 fL 36.4-46.3 N (test code = RDW-SD) PLATELET COUNT (test code = PLT) 413 K/mm3 155-337 H MEAN PLATELET VOLUME (test code 9.4 fL 6.8-11.2 N = MPV) GRANULOCYTE % (test code = GR%) 72.4 % 37.8-82.6 N IMMATURE GRANULOCYTE % (test 0.4 % 0.0-2.0 N code = IG%) LYMPHOCYTE % (test code = LY%) 19.7 % 14.1-45.4 N MONOCYTE % (test code = MO%) 7.5 % 2.5-11.7 N EOSINOPHIL % (test code = EO%) 0.0 % 0.0-6.2 N BASOPHIL % (test code = BA%) 0.0 % 0.0-2.1 N NUCLEATED RBC % (test code = 0.0 /100WBC% 0.0-1.0 N NRBC%) GRANULOCYTE # (test code = GR#) 6.15 k/mm3 2.0-13.7 N IMMATURE GRANULOCYTE # (test 0.03 K/mm3 0.00-0.03 N code = IG#) LYMPHOCYTE # (test code = LY#) 1.67 K/mm3 0.6-3.8 N MONOCYTE # (test code = MO#) 0.64 K/mm3 0.11-0.59 H EOSINOPHIL # (test code = EO#) 0.00 K/mm3 0.0-0.4 N BASOPHIL # (test code = BA#) 0.00 K/mm3 0.0-0.1 N NUCLEATED RBC # (test code = 0.00 K/mm3 0.0-0.05 N NRBC#) GLUCOSE BEDSIDE [id number] 20:38:00 Test Item Value Reference Range Interpretation Comments GLUCOSE BEDSIDE TESTING (test code 256 MG/DL 70-119 H = GLUBED) GLUCOSE BEDSIDE [id number] 16:06:00 Test Item Value Reference Range Interpretation Comments GLUCOSE BEDSIDE TESTING (test code 301 MG/DL 70-119 H = GLUBED) - SP THORACENTESIS [id number] 16:04:00 [facility] : 1965 Sex: F Patient Name: HANANE PIEDRA Unit No: [id number] EXAMS: CPT CODE: [id number] SP THORACENTESIS W/IMAG [id number] EXAMINATION: IMAGE-GUIDED THORACENTESIS. LOCATION: T 18 HISTORY: Pleural effusion INSTRUCTIONAL TECHNOLOGY FACILITATOR: Medina Silvestre PA-C ASSISTED BY: None SEDATION: The patient did not require conscious sedation for the procedure. ANTIBIOTICS: None. Not indicated. CONTRAST: None. TECHNIQUE: The risks, benefits, and alternatives were discussed and informed consent was obtained. Prior to beginning the procedure, Henning Protocol was used to confirm the patient's identity and planned procedure. Sterile barriers including cap, mask, hand hygiene, sterile sarah ves, sterile drape and cutaneous antisepsis were used. The patient's right chest was examined with ultrasound and free-flowing pleural fluid was identified. The overlying skin was anesthetized with lidocaine. Using real-time ultrasound guidance, a one-step needle was a dvanced into the pleural space. Approximately 900 mL of clear yellow fluid was drained. Samples were sent for lab analysis. At the conclusion of the procedure, the catheter was removed and a sterile dressing applied to the site. ESTIMATED BLOOD LOSS: Less than 10 milliliters. COMPLICATIONS: None. DISCHARGED TO: Inpatient unit. FINDINGS: Ultrasound demonstrated a moderate amount of pleural fluid. IMPRESSION: Successful image-guided right-sided thoracentesis. PLAN: Postprocedure chest radiograph will be obtained. at 1604 Reported and signed by: Agustin Torres MD [facility] NAME: HANANE PIEDRA Interventional Lab PHYS: Medina Lott [address] [place] [address] : 1965 AGE: 55 SEX: Joe [place]uck[place] [address] LOC: B.160 W PHONE #: EXAM DATE: 05/17/2021 STATUS: ADM IN FAX #:RAD #: D/C DT PAGE 1 Signed Report (CONTINUED) Patient Name: HANANE PIEDRA Unit No: [id number] EXAMS: CPT CODE: [id number] SP THORACENTESIS W/IMAG [id number] <Continued> CC: Mary Portillo MD; Medina ALBA; Jose Hernandez MD Dictated Date/Time: 05/17/2021 (1604) Technologist: Preston Anne Time: DAP (Gy m2): Air Kerma (mGy): Trnscrpt: 05/17/2021 (1604) [email or web address] [facility] NAME: HANANE PIEDRA Interventional Lab PHYS: Medina Lott [address] [place] [address] : 1965 AGE: 55 SEX: Joe Puckett [place] [address] LOC: B.160 W PHONE #: EXAM DATE: 05/17/2021 STATUS: ADM IN FAX #: RAD #: D/C DT PAGE 2 Signed Report- XR CHEST 1 [id number] 15:26:00 [facility] : 1965 Sex: F FAX: Mary Byrd MD [phone] [place]: St: [facility] FAX: Medina Silvestre FAX: Jose Valencia MD [phone] Patient Name: HANANE PIEDRA Unit No: [id number] EXAMS: CPT CODE: [id number] XRCHEST 1 V 77259 CHEST 1 VIEW: INDICATION: s/p right thora COMPARISON: Comparison is made with prior study of 05/17/2021 Location: T 18 A single portable AP view of the chest demonstrates borderline heart size with a mildly elongated aorta. Hazy bilateral lung opacities are present. Interval decrease in the right pleural effusion related to thoracentesis. Small left pleural effusion is unchanged. The visualized bony structures are unremarkable. IMPRESSION: 1. CHF, improving. 2. Interval decrease in right pleural effusion. No apparent pneumothorax. Electronically Signed by Armen Davis MD on 0 05/17/2021 at 1526 Reported and signed by: Armen Davis MD CC: Mary Portillo MD; Medina ALBA; Jose Hernandez MD Dictated Date/Time: 05/17/2021 (1526)Technologist: Annette Noel Transcribed Date/Time: 05/17/2021 (1526) By: [email or web address] Orig Print D/T: S: 05/17/2021 (8309) SOFI Puckett NAME: HANANE PIEDRA MEDICAL IMAGING PHYS: MCDCARLOS MiloSilvestreMedina [address] [place] [address] BLVD : 1965 AGE: 55 SEX: F [place], [place] [address] LOC: B.160 W PHONE #: [phone] EXAM DATE: 05/17/2021 STATUS: ADM IN FAX #: [phone] RAD NO: DC Dt: PAGE 1 Signed ReportPATH COLLECTION REQ 2021-05-17 14:03:00 Test Item Value Reference Range Interpretation Comments PATH COLLECTION REQ PATH SPEC COLLECTED COLLECTED (test code = SPECIMEN PATHCOLLREQ) GLUCOSE BEDSIDE [id number] 11:22:00 Test Item Value Reference Range Interpretation Comments GLUCOSE BEDSIDE TESTING (test code 252 MG/DL 70-119 H = GLUBED) COMPREHENSIVE METABOLIC [id number] 08:40:00 Test Item Value Reference Range Interpretation Comments SODIUM (test code = 136.0 mmol/L 133-144 N NA) POTASSIUM (test code 3.8 mmol/L 3.5-5.1 N = K) CHLORIDE (test code 98 mmol/L 95-105 N = CL) CARBON DIOXIDE (test 35 mmol/L 21-32 H code = CO2) ANION GAP (test code 3.0 GAP calc 4.0-15.0 L = GAP) GLUCOSE (test code = 208 MG/DL 70-110 H GLU) BLOOD UREA NITROGEN 25 MG/DL 7-18 H (test code = BUN) GLOMERULAR 93 estGFR >60 The estimated FILTRATION RATE glomerular (test code = GFR) filtration rate is computed usingpatient ra ce, age, sex, and s em creatinine. If any of theneeded da ta elements are mi ssing the Laboratory can notcompute an estimation of t he glomerular filtration rate .The GFR value units = ml/min/1.73 met er squared. EstimatedGFR va lues above 60 should be interpreted as >60, not anexact number.--- DRUG DOSAGE ALERT -- - Drug dosage adjustments uti lize different calculationpara meter s. CREATININE (test 0.66 MG/DL 0.55-1.30 N Results may be code = CREAT) depressed if p atient is takingN-Acetylc ystei ne (NAC) and Metamizole (Dipyrone). TOTAL PROTEIN (test 6.6 G/DL 6.4-8.2 N code = PROT) ALBUMIN (test code = 2.5 G/DL 3.4-5.0 L ALB) ALBUMIN/GLOBULIN 0.6 RATIO 1.2-2.2 L RATIO (test code = A/G) CALCIUM (test code = 8.4 MG/DL 8.5-10.1 L CA) BILIRUBIN TOTAL 0.21 MG/DL 0.00-1.00 N (test code = BILT) BILIRUBIN DIRECT < 0.10 MG/DL 0.00-0.30 N (test code = BILD) BILIRUBIN INDIRECT CALC SANDRA MG/DL 0.2-1.3 L (test code = BILIND) SGOT/AST (test code 10 Unit/L 15-37 L = AST) SGPT/ALT (test code 15 Unit/L 12-78 N = ALT) ALKALINE PHOSPHATASE 70 Unit/L 45-117 N TOTAL (test code = ALKP) INDEX HEMOLYSIS 1 NORMAL <10 See_Comment [Automated message] (test code = MG Index/DL The system [employer]) generated this result transmit saran reference range : 1 NORMAL. The reference range was not used to interpret this result as normal/abnormal . INDEX ICTERIC (test 1 NORMAL <2 MG See_Comment [Auto mated message] code = ICTINDEX) Index/DL The system which generated this result transmit saran reference range : 1 NORMAL. The reference range was not used to interpret this result as normal/abnormal . INDEX LIPEMIA (test 1 NORMAL <50 See_Comment [Automa saran message] code = LIPINDEX) MG Index/DL The system which generated this result transmit saran reference range : 1 NORMAL. The reference range was not used to interpret this result as normal/abnormal . CBC W/AUTO [id number] 08:33:00 Test Item Value Reference Range Interpretation Comments WHITE BLOOD CELL (test code = 8.6 K/mm3 4.1-12.1 N WBC) RED BLOOD CELL (test code = RBC) 3.03 M/mm3 3.8-5.5 L HEMOGLOBIN (test code = HGB) 8.5 G/DL 10.6-15.8 L HEMATOCRIT (test code = HCT) 26.5 % 31.8-47.4 L MEAN CELL VOLUME (test code = 87.5 fL 80.1-101.1 N MCV) MEAN CELL HGB (test code = MCH) 28.1 pg 25.3-35.3 N MEAN CELL HGB CONCETRATION (test 32.1 G/DL 32.7-35.1 L code = MCHC) RED CELL DISTRIBUTION WIDTH 14.1 % 12.2-16.4 N (test code = RDW) RED CELL DISTRIBUTION WIDTH 44.4 fL 36.4-46.3 N (test code = RDW-SD) PLATELET COUNT (test code = PLT) 412 K/mm3 155-337 H MEAN PLATELET VOLUME (test code 9.2 fL 6.8-11.2 N = MPV) GRANULOCYTE % (test code = GR%) 75.7 % 37.8-82.6 N IMMATURE GRANULOCYTE % (test 0.3 % 0.0-2.0 N code = IG%) LYMPHOCYTE % (test code = LY%) 17.4 % 14.1-45.4 N MONOCYTE % (test code = MO%) 6.5 % 2.5-11.7 N EOSINOPHIL % (test code = EO%) 0.0 % 0.0-6.2 N BASOPHIL % (test code = BA%) 0.1 % 0.0-2.1 N NUCLEATED RBC % (test code = 0.0 /100WBC% 0.0-1.0 N NRBC%) GRANULOCYTE # (test code = GR#) 6.51 k/mm3 2.0-13.7 N IMMATURE GRANULOCYTE # (test 0.03 K/mm3 0.00-0.03 N code = IG#) LYMPHOCYTE # (test code = LY#) 1.50 K/mm3 0.6-3.8 N MONOCYTE # (test code = MO#) 0.56 K/mm3 0.11-0.59 N EOSINOPHIL # (test code = EO#) 0.00 K/mm3 0.0-0.4 N BASOPHIL # (test code = BA#) 0.01 K/mm3 0.0-0.1 N NUCLEATED RBC # (test code = 0.00 K/mm3 0.0-0.05 N NRBC#) GLUCOSE BEDSIDE [id number] 08:12:00 Test Item Value Reference Range Interpretation Comments GLUCOSE BEDSIDE TESTING (test code 206 MG/DL 70-119 H = GLUBED) - XR CHEST 1 [id number] 08:01:00 [facility] : 1965 Sex: F FAX: Mary Byrd MD [phone] [place]: St: [facility] FAX: Steven Norman [facility] [phone] FAX: Jose Valencia MD [phone] Patient Name: HANANE PIEDRA Unit No: [id number] EXAMS: CPT CODE: [id number] XRCHEST 1 V 84438 EXAM: - XR CHEST 1 VCLINICAL HISTORY: COVID TECHNIQUE: Single frontal view. COMPARISON: Chest radiograph 05/16/2021 LOCATION: U19 FINDINGS: The trachea appears normal. The cardiac silhouette is mildly enlarged. Mild to moderate ill-defined diffuse bilateral airspace opacities appear slightly worsened from prior. Small bilateral layering pleural effusions with atelectasis noted. Limited evaluation of soft tissues and osseous structures is grossly unremarkable. IMPRESSION: Worsened mild to moderate ill-defined diffuse bilateral airspace opacities. Cardiomegaly and small layering bilateral pleural effusions again noted. at 0801 Reported and signed by: Preston Castro DO CC: Mary Portillo MD; Steven Jane; Jose Hernandez MD Dictated Date/Time: 05/17/2021 (08)Technologist: LOLIS MARTINEZ Transcribed Date/Time: 05/17/2021(08) By: [email or web address] Orig Print D/T: S: 05/17/2021 (0804) SOFI Puckett NAME: HANANE PIEDRA MEDICAL IMAGING PHYS: FAIZANCH.Nick - Buck,Steven [address] : 1965 AGE: 55 SEX: F [place] [address] LOC: B.160 W PHONE #: [phone] EXAM DATE: 05/17/2021 STATUS: ADM IN FAX #: [phone] RAD NO: DC Dt: PAGE 1 Signed ReportCovid 19 InHouse [id number] 22:33:00 Test Item Value Reference Range Interpretation Comments Covid 19 Negative Negative A negative resu lt does not InHouse NTX preclude the SA RS-COV-2 (test code = viralinfection and should not be [id number]) used as the so le basis forpatient suhail gement decisions. Negative result s must becombined with clinical o bservations, patient history , andepidemiologi steven information. Viral levels in clinicalsamples below the detec tion limit of the assay could shyam d tonegative results. This t est was performed using the [employer] SmartTM COVID-19 PCRassay. This test was developed and i ts performancechar acteristics were determined by [facility]. Thi s test has notbeen FDA gregorio ared or approved. This test is au thorized by theFDA under Em ergency Use Authorization(E UA). The EUA willremain in e ffect unless it is terminated o r revoked by FDA . Testing trinidad eters have not been validated for screeningasympt omatic patients. This test was v alidated according to th e FDA's guidancedocumen t "Policy for Diagnostics magdalena ting in LaboratoriesCer tified to Perform High Complexity Testing under CLIA". Specimen comments: need PCRSpecimen comments: need PCRFirst test? NoEmployed in Healthcare? NoSymptomatic as defined by CDC? YesDate of Symptom Onset: [id number] due to COVID? NoIn ICU due toCOVID? NoResident in a congregate care setting? No? NoAge at collection: YGLUCOSE BEDSIDE [id number] 21:56:00 Test Item Value Reference Range Interpretation Comments GLUCOSE BEDSIDE TESTING (test code 314 MG/DL 70-119 H = GLUBED) GLUCOSE BEDSIDE [id number] 16:19:00 Test Item Value Reference Range Interpretation Comments GLUCOSE BEDSIDE TESTING (test code 331 MG/DL 70-119 H = GLUBED) VITAMIN [id number] 14:18:00 Test Item Value Reference Range Interpretation Comments VITAMIN B12 (test code = VITB12) 1258 PG/ML 183-986 H FOLIC [id number] 14:18:00 Test Item Value Reference Range Interpretation Comments FOLIC ACID (test code = FOL) 15.86 NG/ML 3.10-17.50 N FE W/TOTAL IRON BINDING [id number] 14:07:00 Test Item Value Reference Range Interpretation Comments SERUM IRON (test 35 mcG/DL 50-170 L code = IRON) TOTAL IRON BINDING 153 mcG/DL 250-450 L CAPACITY (test code = TIBC) IRON SATURATION 23 % calc 12-57 N (test code = FESAT) INDEX HEMOLYSIS 1 NORMAL <10 MG See_Comment [Automat ed message] (test code = Index/DL The system whic h HEMINDEX) generated this result transmit saran reference range : 1 NORMAL. The reference range was not used to interpret this result as normal/abnormal . INDEX ICTERIC (test 1 NORMAL <2 MG See_Comment [Auto mated message] code = ICTINDEX) Index/DL The system which generated this result transmit saran reference range : 1 NORMAL. The reference range was not used to interpret this result as normal/abnormal . INDEX LIPEMIA (test 1 NORMAL <50 MG See_Comment [Aut omated message] code = LIPINDEX) Index/DL The system which generated this result transmit saran reference range : 1 NORMAL. The reference range was not used to interpret this result as normal/abnormal . [id number] 14:07:00 Test Item Value Reference Range Interpretation Comments FERRITIN (test code = 351.8 NG/ML 3.0-105.0 H PREMEN OPAUSAL.....7-2 CARLOS) 83 NG/MLPOSTMENOPA USAL.. .14-233 NG/ML GLUCOSE BEDSIDE [id number] 11:19:00 Test Item Value Reference Range Interpretation Comments GLUCOSE BEDSIDE TESTING (test code 217 MG/DL 70-119 H = GLUBED) GLUCOSE BEDSIDE [id number] 08:21:00 Test Item Value Reference Range Interpretation Comments GLUCOSE BEDSIDE TESTING (test code 209 MG/DL 70-119 H = GLUBED) - XR CHEST 1 [id number] 07:26:00 [facility] : 1965 Sex: F FAX: Mary Byrd MD [phone] [place]: St: [facility] FAX: Steven Norman [facility] [phone] FAX: Jose Valencia MD [phone] Patient Name: MARIAJOSE PIEDRADA Unit No: [id number] EXAMS: CPT CODE: [id number] XRCHEST 1 V 83354 - XR CHEST 1 V INDICATION:Pneumonia LOCATION: T18 Comparison 05/14/2021 Slight decrease in moderate size pleural effusions. Persistent dense atelectasis and infiltrates in lower lobes. The cardiomediastinal silhouette is within normal limits. The bony thorax is unremarkable. IMPRESSION: Slight decrease in effusions. No change in dense infiltrates and atelectasis lower lobes. at 0726 Reported and signed by: Rashid Lu D.O. CC: Mary Portillo MD; Steven Jnae; Jose Hernandez MD Dictated Date/Time: 05/16/2021 (725)Technologist: JONNY VEGA Transcribed Date/Time: 05/16/2021 (725) By: Teodora Orig Print D/T: S: 05/16/2021 (728) [facility] Puckett NAME: HANANE PIEDRA MEDICAL IMAGING PHYS: Steven Bradley [address] : 1965 AGE: 55 SEX: F [place]ET[place] [id number] [place], [place] [address]T NO: [id number] LOC: B.160 W PHONE #: [phone] EXAM DATE: 05/16/2021 STATUS: ADM IN FAX #: [phone] RAD NO: DC Dt: PAGE 1 Signed ReportCOMPREHENSIVE METABOLIC [id number] 04:37:00 Test Item Value Reference Range Interpretation Comments SODIUM (test code = 136.0 mmol/L 133-144 N NA) POTASSIUM (test code 3.7 mmol/L 3.5-5.1 N = K) CHLORIDE (test code 99 mmol/L 95-105 N = CL) CARBON DIOXIDE (test 30 mmol/L 21-32 N code = CO2) ANION GAP (test code 7.0 GAP calc 4.0-15.0 N = GAP) GLUCOSE (test code = 235 MG/DL 70-110 H GLU) BLOOD UREA NITROGEN 28 MG/DL 7-18 H (test code = BUN) GLOMERULAR 87 estGFR >60 The estimated FILTRATION RATE glomerular (test code = GFR) filtration rate is computed usingpatient ra ce, age, sex, and s em creatinine. If any of theneeded da ta elements are mi ssing the Laboratory can notcompute an estimation of t he glomerular filtration rate .The GFR value units = ml/min/1.73 met er squared. EstimatedGFR va lues above 60 should be interpreted as >60, not anexact number.--- DRUG DOSAGE ALERT -- - Drug dosage adjustments uti lize different calculationpara meter s. CREATININE (test 0.70 MG/DL 0.55-1.30 N Results may be code = CREAT) depressed if p atient is takingN-Acetylc ystei ne (NAC) and Metamizole (Dipyrone). TOTAL PROTEIN (test 5.6 G/DL 6.4-8.2 L code = PROT) ALBUMIN (test code = 2.1 G/DL 3.4-5.0 L ALB) ALBUMIN/GLOBULIN 0.6 RATIO 1.2-2.2 L RATIO (test code = A/G) CALCIUM (test code = 7.9 MG/DL 8.5-10.1 L CA) BILIRUBIN TOTAL 0.17 MG/DL 0.00-1.00 N (test code = BILT) BILIRUBIN DIRECT < 0.10 MG/DL 0.00-0.30 N (test code = BILD) BILIRUBIN INDIRECT CALC SANDRA MG/DL 0.2-1.3 L (test code = BILIND) SGOT/AST (test code 10 Unit/L 15-37 L = AST) SGPT/ALT (test code 13 Unit/L 12-78 N = ALT) ALKALINE PHOSPHATASE 61 Unit/L 45-117 N TOTAL (test code = ALKP) INDEX HEMOLYSIS 1 NORMAL <10 See_Comment [Automated message] (test code = MG Index/DL The system [employer] h [employer]EM[employer]) generated this result transmit saran reference range : 1 NORMAL. The reference range was not used to interpret this result as normal/abnormal . INDEX ICTERIC (test 1 NORMAL <2 MG See_Comment [Auto mated message] code = ICTINDEX) Index/DL The system which generated this result transmit saran reference range : 1 NORMAL. The reference range was not used to interpret this result as normal/abnormal . INDEX LIPEMIA (test 1 NORMAL <50 See_Comment [Automa saran message] code = LIPINDEX) MG Index/DL The system which generated this result transmit saran reference range : 1 NORMAL. The reference range was not used to interpret this result as normal/abnormal . CBC W/AUTO [id number] 03:28:00 Test Item Value Reference Range Interpretation Comments WHITE BLOOD CELL (test code = 9.6 K/mm3 4.1-12.1 N WBC) RED BLOOD CELL (test code = RBC) 2.62 M/mm3 3.8-5.5 L HEMOGLOBIN (test code = HGB) 7.3 G/DL 10.6-15.8 L HEMATOCRIT (test code = HCT) 22.7 % 31.8-47.4 L MEAN CELL VOLUME (test code = 86.6 fL 80.1-101.1 N MCV) MEAN CELL HGB (test code = MCH) 27.9 pg 25.3-35.3 N MEAN CELL HGB CONCETRATION (test 32.2 G/DL 32.7-35.1 L code = MCHC) RED CELL DISTRIBUTION WIDTH 13.9 % 12.2-16.4 N (test code = RDW) RED CELL DISTRIBUTION WIDTH 44.7 fL 36.4-46.3 N (test code = RDW-SD) PLATELET COUNT (test code = PLT) 345 K/mm3 155-337 H MEAN PLATELET VOLUME (test code 9.6 fL 6.8-11.2 N = MPV) GRANULOCYTE % (test code = GR%) 73.4 % 37.8-82.6 N IMMATURE GRANULOCYTE % (test 0.3 % 0.0-2.0 N code = IG%) LYMPHOCYTE % (test code = LY%) 19.4 % 14.1-45.4 N MONOCYTE % (test code = MO%) 6.8 % 2.5-11.7 N EOSINOPHIL % (test code = EO%) 0.0 % 0.0-6.2 N BASOPHIL % (test code = BA%) 0.1 % 0.0-2.1 N NUCLEATED RBC % (test code = 0.0 /100WBC% 0.0-1.0 N NRBC%) GRANULOCYTE # (test code = GR#) 7.02 k/mm3 2.0-13.7 N IMMATURE GRANULOCYTE # (test 0.03 K/mm3 0.00-0.03 N code = IG#) LYMPHOCYTE # (test code = LY#) 1.85 K/mm3 0.6-3.8 N MONOCYTE # (test code = MO#) 0.65 K/mm3 0.11-0.59 H EOSINOPHIL # (test code = EO#) 0.00 K/mm3 0.0-0.4 N BASOPHIL # (test code = BA#) 0.01 K/mm3 0.0-0.1 N NUCLEATED RBC # (test code = 0.00 K/mm3 0.0-0.05 N NRBC#) GLUCOSE BEDSIDE [id number] 21:02:00 Test Item Value Reference Range Interpretation Comments GLUCOSE BEDSIDE TESTING (test code 285 MG/DL 70-119 H = GLUBED) GLUCOSE BEDSIDE [id number] 15:21:00 Test Item Value Reference Range Interpretation Comments GLUCOSE BEDSIDE TESTING (test code 249 MG/DL 70-119 H = GLUBED) GLUCOSE BEDSIDE [id number] 11:34:00 Test Item Value Reference Range Interpretation Comments GLUCOSE BEDSIDE TESTING (test code 220 MG/DL 70-119 H = GLUBED) CBC W/AUTO [id number] 08:43:00 Test Item Value Reference Range Interpretation Comments WHITE BLOOD CELL (test 8.6 K/mm3 4.1-12.1 N code = WBC) RED BLOOD CELL (test code 3.13 M/mm3 3.8-5.5 L = RBC) HEMOGLOBIN (test code = 8.5 G/DL 10.6-15.8 L HGB) HEMATOCRIT (test code = 27.7 % 31.8-47.4 L HCT) MEAN CELL VOLUME (test 88.5 fL 80.1-101.1 N code = MCV) MEAN CELL HGB (test code 27.2 pg 25.3-35.3 N = MCH) MEAN CELL HGB 30.7 G/DL 32.7-35.1 L CONCETRATION (test code = MCHC) RED CELL DISTRIBUTION 13.9 % 12.2-16.4 N WIDTH (test code = RDW) RED CELL DISTRIBUTION 44.8 fL 36.4-46.3 N WIDTH (test code = RDW-SD) PLATELET COUNT (test code 306 K/mm3 155-337 N = PLT) MEAN PLATELET VOLUME 11.0 fL 6.8-11.2 N (test code = MPV) GRANULOCYTE % (test code 87.6 % 37.8-82.6 H = GR%) IMMATURE GRANULOCYTE % 0.3 % 0.0-2.0 N (test code = IG%) LYMPHOCYTE % (test code = 10.9 % 14.1-45.4 L LY%) MONOCYTE % (test code = 0.8 % 2.5-11.7 L MO%) EOSINOPHIL % (test code = 0.1 % 0.0-6.2 N EO%) BASOPHIL % (test code = 0.3 % 0.0-2.1 N BA%) NUCLEATED RBC % (test 0.0 /100WBC% 0.0-1.0 N code = NRBC%) GRANULOCYTE # (test code 7.56 k/mm3 2.0-13.7 N = GR#) IMMATURE GRANULOCYTE # 0.03 K/mm3 0.00-0.03 N (test code = IG#) LYMPHOCYTE # (test code = 0.94 K/mm3 0.6-3.8 N LY#) MONOCYTE # (test code = 0.07 K/mm3 0.11-0.59 L MO#) EOSINOPHIL # (test code = 0.01 K/mm3 0.0-0.4 N EO#) BASOPHIL # (test code = 0.03 K/mm3 0.0-0.1 N BA#) NUCLEATED RBC # (test 0.00 K/mm3 0.0-0.05 N code = NRBC#) MANUAL DIFF REQUIRED CRITERIA (SCAN) CRITERIA (test code = MDIFF) DIFF/SCN DIFFERENTIAL [id number] 08:43:00 Test Item Value Reference Range Interpretation Comments MORPHOLOGY COMMENT (test ON SCAN NORMAL RBCS code = MOC) PLATELET ESTIMATE (test ADEQ ON SCAN ADEQUATE code = PLTEST) DIFFERENTIAL COMMENT AUTO DIFF CONFIRMED SCAN COMM (test code = DC) COMMENT ANISOCYTOSIS (test code SLIGHT ON SCAN NONE = ANISO) SCHISTOCYTES (test code FEW ON SCAN NONE = KRYSTEN) ROSELINE CELLS (test code = RARE ON SCAN NONE BUR) GLUCOSE BEDSIDE [id number] 07:58:00 Test Item Value Reference Range Interpretation Comments GLUCOSE BEDSIDE TESTING (test code 239 MG/DL 70-119 H = GLUBED) COMPREHENSIVE METABOLIC [id number] 07:48:00 Test Item Value Reference Range Interpretation Comments SODIUM (test code = 136.0 mmol/L 133-144 N NA) POTASSIUM (test code 4.0 mmol/L 3.5-5.1 N = K) CHLORIDE (test code 101 mmol/L 95-105 N = CL) CARBON DIOXIDE (test 26 mmol/L 21-32 N code = CO2) ANION GAP (test code 9.0 GAP calc 4.0-15.0 N = GAP) GLUCOSE (test code = 235 MG/DL 70-110 H GLU) BLOOD UREA NITROGEN 19 MG/DL 7-18 H (test code = BUN) GLOMERULAR 120 estGFR >60 The estimated FILTRATION RATE glomerular (test code = GFR) filtration rate is computed usingpatient ra ce, age, sex, and s em creatinine. If any of theneeded da ta elements are mi ssing the Laboratory can notcompute an estimation of t he glomerular filtration rate .The GFR value units = ml/min/1.73 met er squared. EstimatedGFR va lues above 60 should be interpreted as >60, not anexact number.--- DRUG DOSAGE ALERT -- - Drug dosage adjustments uti lize different calculationpara meter s. CREATININE (test 0.53 MG/DL 0.55-1.30 L Results may be code = CREAT) depressed if p atient is takingN-Acetylc ystei ne (NAC) and Metamizole (Dipyrone). TOTAL PROTEIN (test 6.3 G/DL 6.4-8.2 L code = PROT) ALBUMIN (test code = 2.3 G/DL 3.4-5.0 L ALB) ALBUMIN/GLOBULIN 0.6 RATIO 1.2-2.2 L RATIO (test code = A/G) CALCIUM (test code = 8.2 MG/DL 8.5-10.1 L CA) BILIRUBIN TOTAL 0.42 MG/DL 0.00-1.00 N (test code = BILT) BILIRUBIN DIRECT < 0.10 MG/DL 0.00-0.30 N (test code = BILD) BILIRUBIN INDIRECT CALC SANDRA MG/DL 0.2-1.3 L (test code = BILIND) SGOT/AST (test code 16 Unit/L 15-37 N = AST) SGPT/ALT (test code 16 Unit/L 12-78 N = ALT) ALKALINE PHOSPHATASE 70 Unit/L 45-117 N TOTAL (test code = ALKP) INDEX HEMOLYSIS 1 NORMAL <10 See_Comment [Automated message] (test code = MG Index/DL The system [employer] HEMINDEX) generated this result transmit saran reference range : 1 NORMAL. The reference range was not used to interpret this result as normal/abnormal . INDEX ICTERIC (test 1 NORMAL <2 MG See_Comment [Auto mated message] code = ICTINDEX) Index/DL The system which generated this result transmit saran reference range : 1 NORMAL. The reference range was not used to interpret this result as normal/abnormal . INDEX LIPEMIA (test 1 NORMAL <50 See_Comment [Automa saran message] code = LIPINDEX) MG Index/DL The system which generated this result transmit saran reference range : 1 NORMAL. The reference range was not used to interpret this result as normal/abnormal . - CTA CHEST FOR [id number] 00:01:00 [facility] : 1965 Sex: F Patient Name: HANANE PIEDRA Unit No: [id number] EXAMS: CPT CODE: [id number] [place] [id number] Site ID: [id number] CT angiogram of the chest with pulmonary embolism protocol CLINICAL HISTORY: Hypoxia, elevated d-dimer COMPARISON STUDY: Chest x-ray May 13, 2021 TECHNIQUE: CT angiogram of the chest with IV contrast performed according to department pulmonary embolus protocol. Radiologist performed post-acquisition 3D processing was done at the workstation and reviewed. CT dose lowering technique utilized, with adjustment of MA/kV according to patient size and automated exposure control. FINDINGS: There is no evidence of pulmonary embolism. The thyroid gland and thoracic inlet are normal. The heart size is normal. The thoracic aorta and great vessels are normal in caliber. No pericardial effusion. No axillary, mediastinal or hilar lymphadenopathy. Bilateral 5 cm deep simple pleural effusions are associated with compressive lower lobe atelectasis and diffuse interstitial edema. Bone windows demonstrate no evidence of fracture or malalignment. Limited images of the upper abdomen appear normal. IMPRESSION: Bilateral 5 cm deep simple pleural effusions are associated with compressive lower lobe atelectasis and diffuse interstitial edema. No evidence of acute pulmonary embolus. at 0001 Reported and signed by: Naresh Hinojosa M.D. CC: Mary Portillo MD; Steven Jane; Jose Hernandez MD Dictated Date/Time: 05/15/2021 (0001) Technologist: ROBERT CHAVEZ CTDI: DLP: Trnscrpt: 05/15/2021 (2065) [email or web address] SOFI Puckett NAME: HANANE [facility]EDRA [facility] PHYS: ROBIN [address] : 1965 AGE: 55 SEX: F [place] [address] LOC: B.160 W PHONE #: [phone] EXAM DATE: 05/14/2021 STATUS: ADM IN FAX #: [phone] RAD #: D/C DT PAGE 1 Signed Report Patient Name: HANANE ZAMUDIO Unit No: [id number] EXAMS: CPT CODE: [id number] [place] [id number] <Continued> Orig Print D/T: S: 05/15/2021 (0004) SOFI Puckett NAME: HANANE PIEDRA [place] [facility] PHYS: FAIZANCH[address] : 1965 AGE: 55 SEX: F [place] [address] LOC: B.160 W PHONE #: [phone] EXAM DATE: 05/14/2021 STATUS: ADM IN FAX #: [phone] RAD #: D/C DT PAGE 2 Signed [id number] 18:03:00 Test Item Value Reference Range Interpretation Comments D-DIMER (test 2567 FEUng/mL 0-500 H THE CUT-OFF V ALUE FOR code = DDIMER) EXCLUSION OF VTE = 500 FEU ng/mLNOTE: This method must be used with additional test s in theevaluation o f VTE and should not be u sed to exclude VTE wit hpretest probability efrain ne. GLUCOSE BEDSIDE [id number] 16:58:00 Test Item Value Reference Range Interpretation Comments GLUCOSE BEDSIDE TESTING (test code 143 MG/DL 70-119 H = GLUBED) GLUCOSE BEDSIDE [id number] 13:06:00 Test Item Value Reference Range Interpretation Comments GLUCOSE BEDSIDE TESTING (test code 151 MG/DL 70-119 H = GLUBED) GLUCOSE BEDSIDE [id number] 08:50:00 Test Item Value Reference Range Interpretation Comments GLUCOSE BEDSIDE TESTING (test code 174 MG/DL 70-119 H = GLUBED) [id number] 01:39:00 Test Item Value Reference Range Interpretation Comments MYOGLOBIN (test code = MYOG) 55 NG/ML 10-92 N GLUCOSE BEDSIDE [id number] 21:43:00 Test Item Value Reference Range Interpretation Comments GLUCOSE BEDSIDE TESTING (test code 263 MG/DL 70-119 H = GLUBED) [id number] 20:20:00 Test Item Value Reference Range Interpretation Comments TROPONIN-I < 0.015 NG/ML 0.000-0.045 N INTERPRET WITH CAUTION, THIS (test code = VALUE EXCEEDS T HE LOWER TROPI) LIMITOF LINEARI TY VERIFICATION ES TABLISHED BY THE LABORATORY. An elevated troponin value alone is not sufficient todi agnose a myocardial infa rction. Rather, the patient'sclinic al presentation (h istory, physical exam) and ECGshould be used in conj unction with troponin in the diagnostic evaluation of s uspected myocardial infa rction. Aserial samplin g protocol is recommended to facilitate theidentificati on of temporal change s in troponin levelscharacter istic of [place]. [id number] 20:20:00 Test Item Value Reference Range Interpretation Comments MYOGLOBIN (test code = MYOG) 61 NG/ML 10-92 N COVID 19 Asymptomatic IH [id number] 18:27:00 Test Item Value Reference Range Interpretation Comments COVID 19 Asymptomatic IH AG (test Negative Neg code = COVNONPUIAG) - XR CHEST 1 [id number] 16:33:00 [facility] : 1965 Sex: F FAX: Mary Byrd MD [phone] [place]: [facility]: [facility] FAX: Steven Norman [phone] FAX: Jose Valencia MD [phone] Patient Name: HANANE PIEDRA Unit No: [id number] EXAMS: CPT CODE: [id number] XRCHEST 1 V 35877 LOCATION: T18 EXAM: CHEST 1 VIEW INDICATION: , SOB COMPARISON: None. TECHNIQUE: AP chest radiograph. FINDINGS: Bilateral airspace opacity with bibasilar consolidation. Tiny bilateral pleural effusions present. Heart is normal in size. Bones and peripheral soft tissues are unremarkable. IMPRESSION: Bilateral airspace opacity with bibasilar consolidation concerning for pneumonia. Tiny bilateral pleural effusions. at 1633 Reported and signed by: Jeet Kimball MD CC: Mary Portillo MD; Steven Jane; Boston Hernandez MD Dictated Date/Time: 05/13/2021 (045)Technologist: Annette Noel Transcribed Date/Time: 05/13/2021 (833) By: [email or web address] Orig Print D/T: S: 05/13/2021 (7008) SOFI Puckett NAME: HANANE PIEDRA [facility] PHYS: Steven Bradley [address] : 1965 AGE: 55 SEX: F [place], [place] [address] LOC: B.254 W PHONE #: [phone] EXAM DATE: 05/13/2021 STATUS: ADM IN FAX #: [phone] RAD NO: DC Dt: PAGE 1 Signed ReportGLUCOSE BEDSIDE [id number] 16:07:00 Test Item Value Reference Range Interpretation Comments GLUCOSE BEDSIDE TESTING (test code 170 MG/DL 70-119 H = GLUBED) [id number] 15:54:00 Test Item Value Reference Range Interpretation Comments TROPONIN-I < 0.015 NG/ML 0.000-0.045 N INTERPRET WITH CAUTION, THIS (test code = VALUE EXCEEDS T HE LOWER TROPI) LIMITOF LINEARI TY VERIFICATION ES TABLISHED BY THE LABORATORY. An elevated troponin value alone is not sufficient todi agnose a myocardial infa rction. Rather, the patient'sclinic al presentation (h istory, physical exam) and ECGshould be used in conj unction with troponin in the diagnostic evaluation of s uspected myocardial infa rction. Aserial samplin g protocol is recommended to facilitate theidentificati on of temporal change s in troponin levelscharacter istic of [place]. CREATINE KINASE (CK)2021-05-13 15:03:00 Test Item Value Reference Range Interpretation Comments CREATINE KINASE (CK) (test code = 183 Unit/L 26-192 N CK) [id number] 15:02:00 Test Item Value Reference Range Interpretation Comments MYOGLOBIN (test code = MYOG) 66 NG/ML 10-92 N [id number] 15:02:00 Test Item Value Reference Range Interpretation Comments TROPONIN-I 0.017 NG/ML 0.000-0.045 N INTERPRET WITH CAUTION, THIS (test code = VALUE EXCEEDS T HE LOWER TROPI) LIMITOF LINEARI TY VERIFICATION ES TABLISHED BY THE LABORATORY. An elevated troponin value alone is not sufficient todi agnose a myocardial infa rction. Rather, the pat ient'sclinical presentation (h istory, physical exam) and ECGshould be used in conj unction with troponin in the diagnostic evaluation of s uspected myocardial infa rction. Aserial samplin g protocol is recommended to facilitate theidentificati on of temporal changes in trop onin levelscharacter istic of [place]. GLUCOSE BEDSIDE [id number] 11:41:00 Test Item Value Reference Range Interpretation Comments GLUCOSE BEDSIDE TESTING (test code 155 MG/DL 70-119 H = GLUBED) GLUCOSE BEDSIDE [id number] 07:42:00 Test Item Value Reference Range Interpretation Comments GLUCOSE BEDSIDE TESTING (test code 217 MG/DL 70-119 H = GLUBED) COMPREHENSIVE METABOLIC [id number] 06:31:00 Test Item Value Reference Range Interpretation Comments SODIUM (test code = 137.0 mmol/L 133-144 N NA) POTASSIUM (test code 3.5 mmol/L 3.5-5.1 N = K) CHLORIDE (test code 104 mmol/L 95-105 N = CL) CARBON DIOXIDE (test 31 mmol/L 21-32 N code = CO2) ANION GAP (test code 2.0 GAP calc 4.0-15.0 L = GAP) GLUCOSE (test code = 186 MG/DL 70-110 H GLU) BLOOD UREA NITROGEN 17 MG/DL 7-18 N (test code = BUN) GLOMERULAR 108 estGFR >60 The estimated FILTRATION RATE glomerular (test code = GFR) filtration rate is computed usingpatient ra ce, age, sex, and s em creatinine. If any of theneeded da ta elements are mi ssing the Laboratory can notcompute an estimation of t he glomerular filtration rate .The GFR value units = ml/min/1.73 met er squared. EstimatedGFR va lues above 60 should be interpreted as >60, not anexact number.--- DRUG DOSAGE ALERT -- - Drug dosage adjustments uti lize different calculationpara meter s. CREATININE (test 0.58 MG/DL 0.55-1.30 N Results may be code = CREAT) depressed if p atient is takingN-Acetylc ystei ne (NAC) and Metamizole (Dipyrone). TOTAL PROTEIN (test 5.4 G/DL 6.4-8.2 L code = PROT) ALBUMIN (test code = 2.2 G/DL 3.4-5.0 L ALB) ALBUMIN/GLOBULIN 0.7 RATIO 1.2-2.2 L RATIO (test code = A/G) CALCIUM (test code = 7.5 MG/DL 8.5-10.1 L CA) BILIRUBIN TOTAL < 0.10 MG/DL 0.00-1.00 N (test code = BILT) BILIRUBIN DIRECT < 0.10 MG/DL 0.00-0.30 N (test code = BILD) BILIRUBIN INDIRECT CALC SANDRA MG/DL 0.2-1.3 L (test code = BILIND) SGOT/AST (test code 13 Unit/L 15-37 L = AST) SGPT/ALT (test code 12 Unit/L 12-78 N = ALT) ALKALINE PHOSPHATASE 69 Unit/L 45-117 N TOTAL (test code = ALKP) INDEX HEMOLYSIS 1 NORMAL <10 See_Comment [Automated message] (test code = MG Index/DL The system [employer] HEMINDEX) generated this result transmit saran reference range : 1 NORMAL. The reference range was not used to interpret this result as normal/abnormal . INDEX ICTERIC (test 1 NORMAL <2 MG See_Comment [Auto mated message] code = ICTINDEX) Index/DL The system which generated this result transmit saran reference range : 1 NORMAL. The reference range was not used to interpret this result as normal/abnormal . INDEX LIPEMIA (test 1 NORMAL <50 See_Comment [Automa saran message] code = LIPINDEX) MG Index/DL The system which generated this result transmit saran reference range : 1 NORMAL. The reference range was not used to interpret this result as normal/abnormal . CBC W/AUTO [id number] 06:15:00 Test Item Value Reference Range Interpretation Comments WHITE BLOOD CELL (test code = 6.0 K/mm3 4.1-12.1 N WBC) RED BLOOD CELL (test code = RBC) 2.70 M/mm3 3.8-5.5 L HEMOGLOBIN (test code = HGB) 7.5 G/DL 10.6-15.8 L HEMATOCRIT (test code = HCT) 23.4 % 31.8-47.4 L MEAN CELL VOLUME (test code = 86.7 fL 80.1-101.1 N MCV) MEAN CELL HGB (test code = MCH) 27.8 pg 25.3-35.3 N MEAN CELL HGB CONCETRATION (test 32.1 G/DL 32.7-35.1 L code = MCHC) RED CELL DISTRIBUTION WIDTH 13.5 % 12.2-16.4 N (test code = RDW) RED CELL DISTRIBUTION WIDTH 42.6 fL 36.4-46.3 N (test code = RDW-SD) PLATELET COUNT (test code = PLT) 271 K/mm3 155-337 N MEAN PLATELET VOLUME (test code 9.7 fL 6.8-11.2 N = MPV) GRANULOCYTE % (test code = GR%) 49.3 % 37.8-82.6 N IMMATURE GRANULOCYTE % (test 0.2 % 0.0-2.0 N code = IG%) LYMPHOCYTE % (test code = LY%) 35.9 % 14.1-45.4 N MONOCYTE % (test code = MO%) 8.0 % 2.5-11.7 N EOSINOPHIL % (test code = EO%) 6.1 % 0.0-6.2 N BASOPHIL % (test code = BA%) 0.5 % 0.0-2.1 N NUCLEATED RBC % (test code = 0.0 /100WBC% 0.0-1.0 N NRBC%) GRANULOCYTE # (test code = GR#) 2.97 k/mm3 2.0-13.7 N IMMATURE GRANULOCYTE # (test 0.01 K/mm3 0.00-0.03 N code = IG#) LYMPHOCYTE # (test code = LY#) 2.16 K/mm3 0.6-3.8 N MONOCYTE # (test code = MO#) 0.48 K/mm3 0.11-0.59 N EOSINOPHIL # (test code = EO#) 0.37 K/mm3 0.0-0.4 N BASOPHIL # (test code = BA#) 0.03 K/mm3 0.0-0.1 N NUCLEATED RBC # (test code = 0.00 K/mm3 0.0-0.05 N NRBC#) GLUCOSE BEDSIDE [id number] 21:11:00 Test Item Value Reference Range Interpretation Comments GLUCOSE BEDSIDE TESTING (test code 337 MG/DL 70-119 H = GLUBED) GLUCOSE BEDSIDE [id number] 17:44:00 Test Item Value Reference Range Interpretation Comments GLUCOSE BEDSIDE TESTING (test code 250 MG/DL 70-119 H = GLUBED) UA RFLX MICR CULT IF [id number] 13:12:00 Test Item Value Reference Range Interpretation Comments UA COLOR (test code = LIGHT-YELLOW YELLOW COLU) DESCRIPT UA APPEARANCE (test TURBID CLEAR A code = APPU) (1+)HAZY-CLDY DESCRIPT UA GLUCOSE DIPSTICK OVER >1000 (4+) See_Comment A [Aut omated (test code = DGLUU) mg/dL message] The system which generated this result transmit saran reference range : 0 (NORMAL). The reference range was not used to interpret this result as normal/abnormal . UA BILIRUBIN DIPSTICK NEGATIVE (0.0) See_Comment [Au tomated (test code = BILU) mg/dL message] The system which generated this result transmit saran reference range : (NEG) 0. The reference range was not used to interpret this result as normal/abnormal . UA KETONE DIPSTICK TRACE mg/dL See_Comment [Automat ed (test code = KETU) message] The system which generated this result transmit saran reference range : (NEG) 0. The reference range was not used to interpret this result as normal/abnormal . UA SPECIFIC GRAVITY 1.018 SG 1.001-1.035 (test code = SGU) UA BLOOD DIPSTICK NEGATIVE (0.00) See_Comment [Autom ated (test code = GALDINO) mg/dL message] T he system which generated this result transmit saran reference range : 0 (NEG). The reference range was not used to interpret this result as normal/abnormal . UA PH DIPSTICK (test 6.0 pH UNITS 4.6-8.0 code = JOSÉ) UA PROTEIN DIPSTICK 100 (2+) mg/dL See_Comment A [Auto mated (test code = PROU) message] The system which generated this result transmit saran reference range : <30 (1+). The reference range was not used to interpret this result as normal/abnormal . UA UROBILINIOGEN NORMAL (0) See_Comment [Automated DIPSTICK (test code = mg/Dl messag e] The URO) system which generated this result transmit saran reference range : <2.0 (1+). The reference range was not used to interpret this result as normal/abnormal . UA NITRITE DIPSTICK NEGATIVE (0) NEG (test code = HUAN) SCREEN UA LEUKOCYTE ESTERASE 25 Leuk/mcL See_Comment A [Auto mated DIPSTICK (test code = messag e] The LEUU) system which generated this result transmit saran reference range : (NEG) 0. The reference range was not used to interpret this result as normal/abnormal . UA COMMENT (test code CLEAN CATCH SpecComment = COMU) SPEC NoteSPEC UA WBC (test code = 3-5 #WBC/HPF 0-3 WBCU) UA RBC (test code = NONE #RBC/HPF 0-3 RBCU) UA BACTERIA (test TRACE >0 /HPF NONE-FEW code = BACU) UA SQUAMOUS CELLS FEW >2 /UL NONE-SQepi (test code = SQU) UA MUCUS (test code = RARE /LPF NONE MUCU) UA CULTURE NEEDED? Crit NOTmet Cult byWBC (test code = UACULT) CULT-N/A Criteria Indication for culture: RiskForSepsis-no oth srcGLUCOSE BEDSIDE TESTING 2021-05-12 12:33:00 Test Item Value Reference Range Interpretation Comments GLUCOSE BEDSIDE TESTING (test code 263 MG/DL 70-119 H = GLUBED) GLUCOSE BEDSIDE [id number] 08:17:00 Test Item Value Reference Range Interpretation Comments GLUCOSE BEDSIDE TESTING (test code 227 MG/DL 70-119 H = GLUBED) GLUCOSE BEDSIDE [id number] 22:06:00 Test Item Value Reference Range Interpretation Comments GLUCOSE BEDSIDE TESTING (test code 271 MG/DL 70-119 H = GLUBED) GLUCOSE BEDSIDE [id number] 17:33:00 Test Item Value Reference Range Interpretation Comments GLUCOSE BEDSIDE TESTING (test code 253 MG/DL 70-119 H = GLUBED) GLUCOSE BEDSIDE [id number] 12:34:00 Test Item Value Reference Range Interpretation Comments GLUCOSE BEDSIDE TESTING (test code 167 MG/DL 70-119 H = GLUBED) GLUCOSE BEDSIDE [id number] 08:13:00 Test Item Value Reference Range Interpretation Comments GLUCOSE BEDSIDE TESTING (test code 115 MG/DL 70-119 N = GLUBED) COMPREHENSIVE METABOLIC [id number] 07:02:00 Test Item Value Reference Range Interpretation Comments SODIUM (test code = 136.0 mmol/L 133-144 N NA) POTASSIUM (test code 3.5 mmol/L 3.5-5.1 N = K) CHLORIDE (test code 102 mmol/L 95-105 N = CL) CARBON DIOXIDE (test 29 mmol/L 21-32 N code = CO2) ANION GAP (test code 5.0 GAP calc 4.0-15.0 N = GAP) GLUCOSE (test code = 134 MG/DL 70-110 H GLU) BLOOD UREA NITROGEN 18 MG/DL 7-18 N (test code = BUN) GLOMERULAR 134 estGFR >60 The estimated FILTRATION RATE glomerular (test code = GFR) filtration rate is computed usingpatient ra ce, age, sex, and s em creatinine. If any of theneeded da ta elements are mi ssing the Laboratory can notcompute an estimation of t he glomerular filtration rate .The GFR value units = ml/min/1.73 met er squared. EstimatedGFR va lues above 60 should be interpreted as >60, not anexact number.--- DRUG DOSAGE ALERT -- - Drug dosage adjustments uti lize different calculationpara meter s. CREATININE (test 0.48 MG/DL 0.55-1.30 L Results may be code = CREAT) depressed if p atient is takingN-Acetylc ystei ne (NAC) and Metamizole (Dipyrone). TOTAL PROTEIN (test 5.6 G/DL 6.4-8.2 L code = PROT) ALBUMIN (test code = 2.3 G/DL 3.4-5.0 L ALB) ALBUMIN/GLOBULIN 0.7 RATIO 1.2-2.2 L RATIO (test code = A/G) CALCIUM (test code = 8.3 MG/DL 8.5-10.1 L CA) BILIRUBIN TOTAL 0.28 MG/DL 0.00-1.00 N (test code = BILT) BILIRUBIN DIRECT < 0.10 MG/DL 0.00-0.30 N (test code = BILD) BILIRUBIN INDIRECT CALC SANDRA MG/DL 0.2-1.3 L (test code = BILIND) SGOT/AST (test code 18 Unit/L 15-37 N = AST) SGPT/ALT (test code 16 Unit/L 12-78 N = ALT) ALKALINE PHOSPHATASE 58 Unit/L 45-117 N TOTAL (test code = ALKP) INDEX HEMOLYSIS 1 NORMAL <10 See_Comment [Automated message] (test code = MG Index/DL The system [employer] HEMINDEX) generated this result transmit saran reference range : 1 NORMAL. The reference range was not used to interpret this result as normal/abnormal . INDEX ICTERIC (test 1 NORMAL <2 MG See_Comment [Auto mated message] code = ICTINDEX) Index/DL The system which generated this result transmit saran reference range : 1 NORMAL. The reference range was not used to interpret this result as normal/abnormal . INDEX LIPEMIA (test 1 NORMAL <50 See_Comment [Automa saran message] code = LIPINDEX) MG Index/DL The system which generated this result transmit saran reference range : 1 NORMAL. The reference range was not used to interpret this result as normal/abnormal . GLYCOSYLATED HEMOGLOBIN (HA1C)2021-05-11 06:21:00 Test Item Value Reference Range Interpretation Comments GLYCOSYLATED HEMOGLOBIN (HA1C) 12.3 % IS-A1C 4.5-5.6 H (test code = GLYHGB) CBC W/AUTO [id number] 06:12:00 Test Item Value Reference Range Interpretation Comments WHITE BLOOD CELL (test code = 6.8 K/mm3 4.1-12.1 N WBC) RED BLOOD CELL (test code = RBC) 2.78 M/mm3 3.8-5.5 L HEMOGLOBIN (test code = HGB) 7.8 G/DL 10.6-15.8 L HEMATOCRIT (test code = HCT) 24.0 % 31.8-47.4 L MEAN CELL VOLUME (test code = 86.3 fL 80.1-101.1 N MCV) MEAN CELL HGB (test code = MCH) 28.1 pg 25.3-35.3 N MEAN CELL HGB CONCETRATION (test 32.5 G/DL 32.7-35.1 L code = MCHC) RED CELL DISTRIBUTION WIDTH 13.3 % 12.2-16.4 N (test code = RDW) RED CELL DISTRIBUTION WIDTH 42.0 fL 36.4-46.3 N (test code = RDW-SD) PLATELET COUNT (test code = PLT) 249 K/mm3 155-337 N MEAN PLATELET VOLUME (test code 9.5 fL 6.8-11.2 N = MPV) GRANULOCYTE % (test code = GR%) 47.4 % 37.8-82.6 N IMMATURE GRANULOCYTE % (test 0.1 % 0.0-2.0 N code = IG%) LYMPHOCYTE % (test code = LY%) 37.4 % 14.1-45.4 N MONOCYTE % (test code = MO%) 9.1 % 2.5-11.7 N EOSINOPHIL % (test code = EO%) 5.3 % 0.0-6.2 N BASOPHIL % (test code = BA%) 0.7 % 0.0-2.1 N NUCLEATED RBC % (test code = 0.0 /100WBC% 0.0-1.0 N NRBC%) GRANULOCYTE # (test code = GR#) 3.23 k/mm3 2.0-13.7 N IMMATURE GRANULOCYTE # (test 0.01 K/mm3 0.00-0.03 N code = IG#) LYMPHOCYTE # (test code = LY#) 2.55 K/mm3 0.6-3.8 N MONOCYTE # (test code = MO#) 0.62 K/mm3 0.11-0.59 H EOSINOPHIL # (test code = EO#) 0.36 K/mm3 0.0-0.4 N BASOPHIL # (test code = BA#) 0.05 K/mm3 0.0-0.1 N NUCLEATED RBC # (test code = 0.00 K/mm3 0.0-0.05 N NRBC#) GLUCOSE BEDSIDE [id number] 20:44:00 Test Item Value Reference Range Interpretation Comments GLUCOSE BEDSIDE TESTING (test code 132 MG/DL 70-119 H = GLUBED) GLUCOSE BEDSIDE [id number] 17:37:00 Test Item Value Reference Range Interpretation Comments GLUCOSE BEDSIDE TESTING (test code 129 MG/DL 70-119 H = GLUBED) GLUCOSE BEDSIDE [id number] 08:58:00 Test Item Value Reference Range Interpretation Comments GLUCOSE BEDSIDE TESTING 146 MG/DL 70-119 H Noti fied Nurse~ (test code = GLUBED) GLUCOSE BEDSIDE [id number] 22:36:00 Test Item Value Reference Range Interpretation Comments GLUCOSE BEDSIDE TESTING (test code 150 MG/DL 70-119 H = GLUBED) GLUCOSE BEDSIDE [id number] 16:44:00 Test Item Value Reference Range Interpretation Comments GLUCOSE BEDSIDE TESTING 210 MG/DL 70-119 H Noti fied Nurse~ (test code = GLUBED) GLUCOSE BEDSIDE [id number] 12:28:00 Test Item Value Reference Range Interpretation Comments GLUCOSE BEDSIDE TESTING 188 MG/DL 70-119 H Noti fied Nurse~ (test code = GLUBED) GLUCOSE BEDSIDE [id number] 08:27:00 Test Item Value Reference Range Interpretation Comments GLUCOSE BEDSIDE TESTING 185 MG/DL 70-119 H Noti fied Nurse~ (test code = GLUBED) - CT ABD PELVIS [id number] 00:56:00 [facility] HANANE PIEDRA : 1965 Sex: F Patient Name: HANANE PIEDRA Unit No: [id number] EXAMS: CPT CODE: [id number] CT ABD PELVIS W/CONT 86401 EXAM: CT ABDOMEN AND PELVIS WITH CONTRAST INDICATION: ABD PAIN N/V LOCATION: H50 COMPARISON: None TECHNIQUE: CT of the abdomen and pelvis was performed with intravenous contrast. All CT scans are performed using radiation dose reduction technique. Technical factors are evaluated and adjusted to insure appropriate moderation of exposure. Automated dose management technology is applied to adjust the radiation dose to minimize exposure while achieving a diagnostic quality image.FINDINGS: Thoracic: Included images of the lower chest demonstrate no abnormalities. Hepatobiliary: No focal liver lesion is identified. The common bile duct isdilated measuring up to 1.1 cm in diameter. Central intrahepatic bile ducts also appear to bedilated. The main portal vein is patent. Gallbladder: Surgically absent Pancreas: Unremarkable. Spleen: Unremarkable. Adrenals: Unremarkable. Kidneys: There is no evidence of renal calculus. There is no evidence of hydronephrosis of either kidney. No solid renal lesion is identified. Bladder/Reproductive system: There is wall thickening of the urinary bladder with foci of intramural airnoted. Intraluminal air is also noted within the urinary bladder. Uterus is not clearly seen,possibly surgically absent. Gastrointestinal: No bowel obstruction or perienteric inflammation. The appendix is not visualized. Vascular: The aorta is grossly normal in appearance. Lymphatics: No enlarged lymph nodes by CT size criteria. Bones/Soft Tissues: No acute osseous findings. No ventral hernias. Peritoneum/Other: No extraluminal air. No extraluminal fluid. IMPRESSION: SOFI Puckett NAME: HANANE PIEDRA [address] [place] [address] Bl PHYS: [place], [place] [address] : 1965 AGE: 55 SEX:F LOC: B.ERS PHONE #: [phone] EXAM DATE: 05/09/2021 STATUS: REG ER FAX #: [phone] RAD #: D/C DT PAGE 1 Signed Report (CONTINUED) Patient Name: HANANE PIEDRA Unit No: [id number] EXAMS: CPT CODE: [id number] CT ABD PELVIS W/CONT 55606 <Continued> 1. Urinary bladder wall thickening and intramural air consistent with emphysematous cystitis. Recommend correlation with urinalysis. 2. Common bile duct and central intrahepatic biliary duct dilatation which appears abnormal even for postcholecystectomy status. Recommend correlation with serum bilirubin and MRCP as clinically indicated. Findings were communicated to Dr. Li by telephone on 05/09/2021 12:56 AM. FOR INTERNAL CODING PURPOSES ONLY RESULT CODE: CVR at 0056 Reported and signed by: Arabella Llanos MD CC: Yris ALBA Dictated Date/Time: 05/09/2021 (0056) Technologist: HERB MCCRARY; DAYANA GARCIAS CTDI: 5.85 DLP: 303.44 Trnscrpt: 05/09/2021 (0056) [id number] SOFI Puckett NAME: HANANE PIEDRA [address] [place] [address] PHYS: [place] [address] : 1965 AGE: 55 SEX: F LOC: B.ERS PHONE #: [phone] EXAM DATE: 05/09/2021 STATUS: REG ER FAX #: [phone] RAD #: D/C DT PAGE 2 Signed Report Patient Name: HANANE PIEDRA Unit No: [id number] EXAMS: CPT CODE: [id number] CT ABD PELVIS W/CONT 56575 <Continued> Orig Print D/T: S: 05/09/2021 (0100) SOFI Puckett NAME: [address] PHYS: [place] [address] : 1965 AGE: 55 SEX: F LOC: B.ERS PHONE #: [phone] EXAM DATE: 05/09/2021 STATUS: REG ER FAX #: [phone] RAD #: D/C DT PAGE 3 Signed ReportCBC W/O [id number] 21:03:00 Test Item Value Reference Range Interpretation Comments WHITE BLOOD CELL (test code = WBC) 8.5 K/mm3 4.1-12.1 N RED BLOOD CELL (test code = RBC) 3.69 M/mm3 3.8-5.5 L HEMOGLOBIN (test code = HGB) 10.3 G/DL 10.6-15.8 L HEMATOCRIT (test code = HCT) 31.2 % 31.8-47.4 L MEAN CELL VOLUME (test code = MCV) 84.6 fL 80.1-101.1 N MEAN CELL HGB (test code = MCH) 27.9 pg 25.3-35.3 N MEAN CELL HGB CONCETRATION (test 33.0 G/DL 32.7-35.1 N code = MCHC) RED CELL DISTRIBUTION WIDTH (test 13.6 % 12.2-16.4 N code = RDW) PLATELET COUNT (test code = PLT) 320 K/mm3 155-337 N MEAN PLATELET VOLUME (test code = 9.6 fL 6.8-11.2 N MPV) PENDING RECEIPT OF SPECIMEN PER B.LAB.DD AT 05/08/21 1956UA RFLX MICR CULT IF [id number] 16:35:00 Test Item Value Reference Range Interpretation Comments UA COLOR (test code = YELLOW DESCRIPT YELLOW COLU) UA APPEARANCE (test TURBID CLEAR A code = APPU) (1+)HAZY-CLDY DESCRIPT UA GLUCOSE DIPSTICK OVER >1000 (4+) See_Comment A [Aut omated (test code = DGLUU) mg/dL message] The system which generated this result transmit saran reference range : 0 (NORMAL). The reference range was not used to interpret this result as normal/abnormal . UA BILIRUBIN DIPSTICK NEGATIVE (0.0) See_Comment [Au tomated (test code = BILU) mg/dL message] The system which generated this result transmit saran reference range : (NEG) 0. The reference range was not used to interpret this result as normal/abnormal . UA KETONE DIPSTICK 20 (1+) mg/dL See_Comment A [Automa saran (test code = KETU) message] The system which generated this result transmit saran reference range : (NEG) 0. The reference range was not used to interpret this result as normal/abnormal . UA SPECIFIC GRAVITY 1.022 SG 1.001-1.035 (test code = SGU) UA BLOOD DIPSTICK OVER >=1.0 See_Comment A [Automate d (test code = GALDINO) mg/dL mg/dL message] T he system which generated this result transmit saran reference range : 0 (NEG). The reference range was not used to interpret this result as normal/abnormal . UA PH DIPSTICK (test 6.0 pH UNITS 4.6-8.0 code = JOSÉ) UA PROTEIN DIPSTICK 300 (3+) mg/dL See_Comment A [Auto mated (test code = PROU) message] The system which generated this result transmit saran reference range : <30 (1+). The reference range was not used to interpret this result as normal/abnormal . UA UROBILINIOGEN NORMAL (0) See_Comment [Automated DIPSTICK (test code = mg/Dl messag e] The URO) system which generated this result transmit saran reference range : <2.0 (1+). The reference range was not used to interpret this result as normal/abnormal . UA NITRITE DIPSTICK NEGATIVE (0) NEG (test code = HUAN) SCREEN UA LEUKOCYTE ESTERASE 75 Leuk/mcL See_Comment A [Auto mated DIPSTICK (test code = messag e] The LEUU) system which generated this result transmit saran reference range : (NEG) 0. The reference range was not used to interpret this result as normal/abnormal . UA COMMENT (test code CLEAN CATCH SpecComment = COMU) SPEC NoteSPEC UA WBC (test code = 20-30 #WBC/HPF 0-3 A WBCU) UA RBC (test code = >100 #RBC/HPF 0-3 A RBCU) UA BACTERIA (test MANY /HPF NONE-FEW A code = BACU) UA SQUAMOUS CELLS RARE >0 /UL NONE-SQepi (test code = SQU) UA HYALINE CAST (test 10-20 #/LPF 0-3 A code = HYALU) UA MUCUS (test code = RARE /LPF NONE MUCU) UA YEAST (BUDDING) FEW >5 /HPF NONE A (test code = YEASTUBD) UA CULTURE NEEDED? Crit met Cult byWBC (test code = UACULT) CULT-OK Criteria Specimen comments: CCIndication for culture: Suprapubic PainBASIC METABOLIC [id number] 15:56:00 Test Item Value Reference Range Interpretation Comments SODIUM (test code = 137.0 mmol/L 133-144 N NA) POTASSIUM (test 4.7 mmol/L 3.5-5.1 N code = K) CHLORIDE (test code 99 mmol/L 95-105 N = CL) CARBON DIOXIDE 32 mmol/L 21-32 N (test code = CO2) ANION GAP (test 6.0 GAP calc 4.0-15.0 N code = GAP) GLUCOSE (test code 268 MG/DL 70-110 H = GLU) BLOOD UREA NITROGEN 32 MG/DL 7-18 H (test code = BUN) CREATININE (test 1.02 MG/DL 0.55-1.30 N Results may be code = CREAT) depressed if p atient is takingN-Acetylc ystei ne (NAC) and Metamizole (Dipyrone). CALCIUM (test code 9.2 MG/DL 8.5-10.1 N = CA) INDEX HEMOLYSIS 4 SMALL 50-200 See_Comment A [Automate d message] (test code = MG Index/DL The system [employer]) generated this result transmit saran reference range : 1 NORMAL. The reference range was not used to interpret this result as normal/abnormal . INDEX ICTERIC (test 1 NORMAL <2 MG See_Comment [Auto mated message] code = ICTINDEX) Index/DL The system which generated this result transmit saran reference range : 1 NORMAL. The reference range was not used to interpret this result as normal/abnormal . INDEX LIPEMIA (test 1 NORMAL <50 MG See_Comment [Aut omated message] code = LIPINDEX) Index/DL The system which generated this result transmit saran reference range : 1 NORMAL. The reference range was not used to interpret this result as normal/abnormal . Specimen comments: CCHEPATIC FUNCTION [id number] 15:56:00 Test Item Value Reference Range Interpretation Comments TOTAL PROTEIN (test code = PROT) 8.5 G/DL 6.4-8.2 H ALBUMIN (test code = ALB) 3.9 G/DL 3.4-5.0 N BILIRUBIN TOTAL (test code = 0.46 MG/DL 0.00-1.00 N BILT) BILIRUBIN DIRECT (test code = < 0.10 MG/DL 0.00-0.30 N BILD) BILIRUBIN INDIRECT (test code = 0.46 MG/DL 0.2-1.3 N BILIND) SGOT/AST (test code = AST) 33 Unit/L 15-37 N SGPT/ALT (test code = ALT) 20 Unit/L 12-78 N ALKALINE PHOSPHATASE TOTAL (test 97 Unit/L 45-117 N code = ALKP) Specimen comments: [id number] 15:56:00 Test Item Value Reference Range Interpretation Comments LIPASE (test code = LIP) 144 Unit/L 114-286 N Specimen comments: [id number] 15:56:00 Test Item Value Reference Range Interpretation Comments TROPONIN-I < 0.015 NG/ML 0.000-0.045 N INTERPRET WITH CAUTION, THIS (test code = VALUE EXCEEDS T HE LOWER TROPI) LIMITOF LINEARI TY VERIFICATION ES TABLISHED BY THE LABORATORY. An elevated troponin value alone is not sufficient todi agnose a myocardial infa rction. Rather, the patient'sclinic al presentation (h istory, physical exam) and ECGshould be used in conj unction with troponin in the diagnostic evaluation of s uspected myocardial infa rction. Aserial samplin g protocol is recommended to facilitate theidentificati on of temporal change s in troponin levelscharacter istic of [place]. Specimen comments: [id number]-PdZ-7 (COVID-19) RNA [Presence] in Respiratory specimen by RYAN with probe [id number] 01:03:38 Test Item Value Reference Range Interpretation Comments SARS-CoV-2 (COVID-19) RNA Not detected Not-Detected [Presence] in Respiratory specimen by RYAN with probe detection (test code = 62703-3) Whether patient is employed in a healthcare setting (test code = 71554-0) Whether the patient has symptoms related to condition of interest (test code = 14849-9) Patient was hospitalized because of this condition (test code = 71814-6) Whether the patient was admitted to intensive care unit (ICU) for condition of interest (test code = 25480-8) Whether patient resides in a congregate care setting (test code = 08745-3) FREE [id number] 19:43:00 Test Item Value Reference Range Interpretation Comments FREE T4 (test code = See_Comment [Autom ated message] [id number]) The system [employer] generated this result transmitted ref erence range: 0.78 - 2 .20 ng/dL:. The ref erence range was not u sed to interpret this result as normal/abnor mal. Lab Interpretation (test Normal code = 31982-2) [facility] [id number] 19:30:00CT Abdomen and Pelvis with intravenous contrast. CLINICAL HISTORY: Abdominal pain. Gastroenteritis or colitis is suspected DOSE: Up-to-date CT equipment and radiation dose reduction techniques wereemployed. CTDIvol: 3.81 mGy. DLP: 167 mGy-cm. TECHNIQUE : Contiguous axial imaging from the level of the lung basesthrough the pubic symphysis was performed after the uncomplicatedadministration of Omnipaque contrast material. Coronal and sagittalreconstructions wereobtained. Auto mA and/or iterative reconstruction were used to reduceradiation dose. FINDINGS: Comparison is made with 01/23/2015 study. Lower lungs: Clear. No pleural effusion or pericardial effusion. Liver, Gallbladder and Spleen: S/P cholecystectomy. Mild dilatation of theintrahepatic as well as extrahepatic biliary ducts noted with common bileduct measuring between 9 and 10 mm. Pancreatic duct is not dilated. Liver is 16.8 cm in length and spleen measures approximately 8.5 x 2.5 cm. Peritoneum:?No free air or free fluid. No lymphadenopathy. Pancreas and Adrenals:?Unremarkable pancreas and adrenal glands. Kidneys and Ureters:?No visible calculi in the renal collecting systems. No hydroureter or hydronephrosis. Vessels: 2 right renal arteries and 2 left renal arteries noted arisingfrom the abdominal aorta. Retroperitoneum: No abnormal fluid or lymphadenopathy. Bowel: Constipation. Clips suspected near the base of the cecum which mayhave been utilized for appendectomy. Mild mucosal enhancement of some ofthe jejunal loops is nonspecific. No sign of diverticulitis or focalcolitis. Bladder and Reproductive Organs: Urinary bladder showed no gross pathologyalthough it is not opacified by the intravenously injected contrast medium.Hysterectomy noted. No adnexal masses or fluid in the pelvis. Bones: No aggressive bone lesions. Soft tissues: Normal. CONCLUSION:1. No acute findings detected in CT scan of abdomen and pelvis.Constipation noted with no focal changes of colitis. Please correlate withhistory for prior appendectomy.2. Cholecystectomy and hysterectomy. [facility], Radiant Results Inft User - 11/26/2018 2:32 PM CDTCT Abdomen and Pelvis with intravenous contrast.CLINICAL HISTORY: Abdominal pain. Gastroenteritis or colitis is rosado spectedDOSE: Up-to-date CT equipment and radiation dose reduction techniques wereemployed. CTDIvol: 3.81 mGy. DLP: 167 mGy-cm.TECHNIQUE : Contiguous axial imaging from the level of the lung basesthrough the pubic symphysis was performed after the uncomplicatedadministration of Omnipaque contrast material. Coronal and sagittalreconstructions wereobtained. Auto mA and/or iterative reconstruction were used to reduceradiation dose.FINDINGS: Comparison is made with 01/23/2015 study.Lower lungs: Clear. Nopleural effusion or pericardial effusion.Liver, Gallbladder and Spleen: S/P cholecystectomy. Mild dilatation of theintrahepatic as well as extrahepatic biliary ducts noted with common bileduct measuring between 9 and 10 mm. Pancreatic duct is not dilated.Liver is 16.8 cm in length and spleen measures approximately 8.5 x 2.5 cm.Peritoneum: No free air or free fluid. No lymphadenopathy.Pancreas and Adrenals: Unremarkable pancreas and adrenal glands.Kidneys and Ureters: No visible calculi in the yola l collecting systems. No hydroureter or hydronephrosis. Vessels: 2 right renal arteries and 2 left renal arteries noted arisingfrom the abdominal aorta.Retroperitoneum: No abnormal fluid or lymphadenopathy.Bowel: Constipation. Clips suspected near the base of the cecum which mayhave been utilized for appendectomy. Mild mucosal enhancement of some ofthe jejunal loops is nonspecific. No sign of diverticulitis or focalcolitis.Bladder and Reproductive Organs: Urinary bladder showed no gross pathologyalthough it is not opacified by the intravenously injected contrast medium.Hysterectomy noted. No adnexal masses or fluid in the pelvis.Bones: No aggressive bone lesions.Soft tissues: Normal.CONCLUSION:1.No acute findings detected in CT scan of abdomen and pelvis.Constipation noted with no focal changesof colitis. Please correlate withhistory for prior appendectomy.2. Cholecystectomy and hysterectomy. [facility] CenterTHY[facility] STIMULATING [id number] 19:20:00 Test Item Value Reference Range Interpretation Comments TSH (test code = See_Comment [Automated message] [id number]) The system [employer] generated this result transmitted ref erence range: 0.45 - 4 .70 mIU/L. The refe rence range was not u sed to interpret this result as normal/abnor mal. Lab Interpretation (test Normal code = 40724-4) [facility] CenterTroponin [id number] 19:02:00 Test Item Value Reference Range Interpretation Comments TROPONIN I (test <0.012 See_Comment [Automated code = 3478960059) message] The system which generated this result transmitted reference range : <=0.034 ng/mL. The reference range was not used to interpr et this result as normal/abnormal . NABIL (test code = Equal or Less than NABIL) 0.034 ng/ml---Normal?Not e: Cardiac troponin begins to rise 3-4 hours after the onset of ischemia. Repeat in 4-6 hours if the sample was drawn within 3-4 hours of the onset of the symptom and found normal. Between 0.035 and 0.120 ng/mL--- Borderline. Questionable myocardial injury or necrosis?Note: Serial measurement may be necessary to confirm or exclude the diagnosis of myocardial injury or necrosis; Clinical correlation (symptoms, EKGs, imaging studies, and others) required; Repeat in 4-6 hours if clinically indicated.? Equal or Higher than 0.121 ng/mL---Abnormal. Myocardial Injury or Necrosis Likely? Biotin has been reported to cause a negative bias, interpret results relative to patient's use of biotin.? ? Lab Interpretation Normal (test code = 89128-0) [facility] CenterN-TERMINAL [id number] 18:59:00 Test Item Value Reference Range Interpretation Comments NT-proBNP (test code 36 pg/mL See_Comment [Autom ated = 5808810638) message] The system which generated this result transmitted reference range : <=125. The reference range was not used to interpret this result as normal/abnormal . NABIL (test code = NABIL) Biotin has been reported to cause a negative bias, interpret results relative to patient's use of biotin. Lab Interpretation Normal (test code = 64243-8) [facility] CenterBasi Metabolic Panel (NA, K, CL, CO2, GLUCOSE, BUN, CREATININE, CA)2018-11-26 18:50:00 Test Item Value Reference Range Interpretation Comments NA (test code = 136 mmol/L 135-145 7486727094) K (test code = 5.1 mmol/L 3.5-5 H 7635560956) CL (test code = 99 mmol/L 98-108 8550222057) CO2 TOTAL (test code = 24 mmol/L 23-31 6936123733) AGAP (test code = 2-16 0619851359) BUN (test code = 23 mg/dL 7-23 2552934928) GLUCOSE (test code = 407 mg/dL 70-110 H 7191305459) CREATININE (test code = 0.45 mg/dL 0.5-1.04 L 5898962307) CALCIUM (test code = 9.9 mg/dL 8.6-10.6 7463961647) eGFR Calculation mL/min/1.73m2 (Non-) (test code = 8367256763) eGFR Calculation mL/min/1.73m2 () (test code = 9181516762) NABIL (test code = NABIL) Association of Glomerular Filtration Rate (GFR) and Staging of Kidney Disease*+ + + +| GFR (mL/min/1.73 m2)?| With Kidney Damage?|?Without Kidney Damage+ --------+ --------+ +|?>90?|?S tage one?|? Normal?+ ---------+ ---------+ +|?60-89? |?Stage two?|? Decreased GFR? + --+ --+ ------+|?30-59?|?Stage three?|? Stage three? + --+ --+ ------+|?15-29?|?Stage four? |? Stage four?+ -------+ -------+ +|?<15 (or dialysis)?|?Stage five? |? Stage five?+ -------+ -------+ +*Each stage assumes the associated GFR level has been in effect for at least three months.?Stages 1 to 5, with or without kidney disease, indicate chronic kidney disease.Notes: Determination of stages one and two (with eGFR >59mL/min/1.73 m2) requires estimation of kidney damage for at least three months as defined by structural or functional abnormalities of the kidney, manifested by either:Pathological abnormalities or Markers of kidney damage (including abnormalities in the composition of the blood or urine or abnormalities in imaging tests). Lab Interpretation Abnormal (test code = 03417-2) [facility] Center[facility] Function Panel (ALB, T.PRO, BILI T, BU/BC, ALT, AST, ALK PHOS)2018-11-26 18:50:00 Test Item Value Reference Range Interpretation Comments TOTAL BILI (test code = 7722160489) 0.4 mg/dL 0.1-1.1 BILI UNCON (test code = 9545436490) 0.2 mg/dL 0.1-1.1 BILI CONJ (test code = 5240360829) 0.0 mg/dL 0-0.3 T PROTEIN (test code = 2458875307) 7.8 g/dL 6.3-8.2 ALBUMIN (test code = 3127054960) 4.6 g/dL 3.5-5 ALK PHOS (test code = 4503288790) 165 U/L 34-122 H ALT(SGPT) (test code = 2579717811) 22 U/L 9-51 AST(SGOT) (test code = 0532444209) 19 U/L 13-40 Lab Interpretation (test code = Abnormal 08392-0) [facility] CenterLipase [id number] 18:50:00 Test Item Value Reference Range Interpretation Comments LIPASE (test code = 9815138118) 131 U/L 0-220 Lab Interpretation (test code = Normal 95551-7) [facility] CenteraPTT2019-08-15 18:12:00 Test Item Value Reference Range Interpretation Comments APTT Patient (test See_Comment [Automat ed code = 3173-2) message] The system which generated this result transmitted reference range : 23 - 38 Seconds . The reference range was not used to interpr et this result as normal/abnormal . NABIL (test code = NABIL) The [facility] patient population mean normal value for aPTT is 30 seconds. Lab Interpretation Normal (test code = 27325-0) [facility] CenterProthrombin Time (PT) / [id number] 18:10:00 Test Item Value Reference Range Interpretation Comments PROTIME PATIENT (test See_Comment [Auto mated message] code = 5964-2) The system wh ich generated this result transmitted ref erence range: 12.0 - 1 4.7 Seconds. The re ference range was not u sed to interpret this result as normal/abnor mal. INR (test code = 6301-6) Nor mal INR <1.1; Warfarin Therap eutic range 2.0 to 3. 0 or 2.5 to 3.5, dep ending upon the indica tions. Lab Interpretation (test Normal code = 65539-4) [facility] CenterUrinalysis2019-08-15 17:55:00 Test Item Value Reference Range Interpretation Comments APPEARANCE (test code = Clear Clear 8305619527) COLOR (test code = Yellow Yellow 9609014999) PH (test code = 4.8-8.0 3599014569) SP GRAVITY (test code = <=1.005 1.003-1.030 4012236422) GLU U QUAL (test code = >1000 mg/dL Negative A 0493032616) BLOOD (test code = Trace Negative A 4044188417) KETONES (test code = Negative Negative 8263690101) PROTEIN (test code = Negative Negative 2887-8) UROBILIN (test code = 0.2 mg/dL See_Comment [Auto mated 4267127902) message] The sy stem which generated this result transmitted reference range : 0-1.0 mg/dL. Th e reference range was not used to interpret this result as normal/abnormal . BILIRUBIN (test code = Negative Negative 4559664138) NITRITE (test code = Positive Negative A 0907856753) LEUK SONU (test code = Negative Negative [id number]) RBC/HPF (test code = See_Comment [Autom ated [id number]) message] The sy stem which generated this result transmitted reference range : 0 - 3 HPF. The reference range was not used to interpret this result as normal/abnormal . WBC/HPF (test code = See_Comment H [Autom ated [id number]) message] The sy stem which generated this result transmitted reference range : 0 - 5 HPF. The reference range was not used to interpret this result as normal/abnormal . BACTERIA (test code = Many Negative A [id number]) Lab Interpretation Abnormal (test code = 18580-2) [facility] 2 [id number] 17:44:52HISTORY: SOB. TECHNIQUE: PA and lateral views of the chest are obtained. Comparison madewith 08/24/2015 study. FINDINGS: No acute pneumonia detected. No pneumothorax or pleural effusionor pulmonary congestion. Cardiothoracic ratio of approximately 9.7/25.5 cmis consistent with normal cardiac size. CONCLUSIONS: No signs of acute cardiopulmonary disease. [facility], Radiant Results Inft User - 11/26/2018 12:46 PM CDTHISTORY: SOB.TECHNIQUE: PA and lateral views of the chest are obtained. Comparison madewith 08/24/2015 study.FINDINGS: No acute pneumonia detected. No pneumothorax or pleural effusionor pulmonarycongestion. Cardiothoracic ratio of approximately 9.7/25.5 cmis consistent with normal cardiac size.CONCLUSIONS: No signs of acute cardiopulmonary disease.[facility] WITH [id number] 17:41:00 Test Item Value Reference Range Interpretation Comments WBC (test code = See_Comment [Automated 6690-2) message] The sy stem which generated this result transmitted reference range : 4.30 - 11.10 10*3/?L. The reference range was not used to interpret this result as normal/abnormal . RBC (test code = See_Comment [Automated 789-8) message] The sy stem which generated this result transmitted reference range : 3.93 - 5.25 10*6/?L. The reference range was not used to interpret this result as normal/abnormal . HGB (test code = 11.1 g/dL 11.6-15 L 718-7) HCT (test code = 32.1 % 35.7-45.2 L 4544-3) MCV (test code = 80.0 fL 80.6-95.5 L 787-2) MCH (test code = 27.7 pg 25.9-32.8 785-6) MCHC (test code = 34.6 g/dL 31.6-35.1 786-4) RDW-SD (test code = 37.2 fL 39-49.9 L 14720-0) RDW-CV (test code = 13.1 % 12-15.5 788-0) PLT (test code = See_Comment H [Automated 777-3) message] The sy stem which generated this result transmitted reference range : 166 - 358 10*3/ ?L. The reference r kehinde was not used to interpret this result as normal/abnormal . MPV (test code = 9.9 fL 9.5-12.9 30581-7) NRBC/100 WBC (test See_Comment [Automat ed code = [id number]) message] The system which generated this result transmitted reference range : 0.0 - 10.0 /100 WBCs. The refer ence range was not u sed to interpret th is result as normal/abnormal . NRBC x10^3 (test code <0.01 See_Comment [Auto mated = [id number]) message] The s ystem which generated this result transmitted reference range : 10*3/?L. The reference range was not used to interpret this result as normal/abnormal . GRAN MAT (NEUT) % 53.2 % (test code = 770-8) IMM GRAN % (test code 0.30 % = 6296003521) LYMPH % (test code = 37.4 % 736-9) MONO % (test code = 5.9 % 5905-5) EOS % (test code = 2.2 % 713-8) BASO % (test code = 1.0 % 706-2) GRAN MAT x10^3(ANC) 3.18 10*3/uL 1.88-7.09 (test code = 8770873553) IMM GRAN x10^3 (test <0.03 0-0.06 code = 4823896743) LYMPH x10^3 (test code 2.23 10*3/uL 1.32-3.29 = 731-0) MONO x10^3 (test code 0.35 10*3/uL 0.33-0.92 = 742-7) EOS x10^3 (test code = 0.13 10*3/uL 0.03-0.39 711-2) BASO x10^3 (test code 0.06 10*3/uL 0.01-0.07 = 704-7) Lab Interpretation Abnormal (test code = 80558-5) [facility] [id number] 11:53:00 Test Item Value Reference Range Interpretation Comments POC-GLUCOSE METER 277 mg/dL 70-110 H TESTED AT [address] ([facility]) (test code [facility] = 1538) [address] POCT-GLUCOSE [id number] 11:53:00 Test Item Value Reference Range Interpretation Comments POC-GLUCOSE METER 411 mg/dL 70-110 HH TESTED AT [address]) (test code [facility] = 1538) [address] RAD, SPINE, CERVICAL, 2 OR 3 [id number] 23:46:00Reason for exam:->neck painFINAL REPORT RAD, SPINE, CERVICAL, 1 view. CLINICAL INDICATION: neck pain COMPARISON: None FINDINGS/IMPRESSION: A single lateral view of the cervical spine was obtained.The study is limited due to obliquity. Vertebral body height and and alignment is maintained. The intervertebral disc spaces are not well evaluated. There is no prevertebral soft tissue swelling. Signed: Clarence Carpio MDReport Verified Date/Time: 10/06/2017 23:46:30 Reading Location: [facility] B1 C013T Transitional Reading Room CT, SPINE, CERVICAL, WO [...] further evaluation as clinically warranted. Signed: Clarence Carpio MDReport Verified Date/Time: 10/06/2017 23:44:40 Reading Location: [facility] B1 C013 Transitional Reading Room CT, BRAIN, WITHOUT [...] concern, consider MRI for further evaluation. Signed: Tremaine Rea Verified Date/Time: 10/06/2017 23:24:44 Reading Location: [address] Reading Room TROPONIN I 2017-10-06 22:56:00 [...] acute neurological disease, and persistent tachyarrhythmia.COMPREHENSIVE METABOLIC [id number] 22:50:00 Test Item Value Reference Range Interpretation [...] 347) EGFR (BEAKER) (test 58 mL/min/1.73 ESTIMA SARAN GFR IS code = 1092) sq m NOT ACCURATE CREATININE CLEARANCE IN PREDICTING GLOMERULAR FILTRATION RATE . ESTIMATED GFR I S NOT APPLICABLE FOR DIALYSIS PATIEN TS. [id number] 22:42:00 Test Item Value Reference Range Interpretation Comments AMYLASE (BEAKER) (test code = 349) 58 U/L 30-110 CBC W/PLT COUNT & AUTO [id number] 22:22:00 Test Item Value Reference Range Interpretation [...] 0.00-0.20 (test code = 417) URINALYSIS W/ [id number] 22:09:00 Test Item Value Reference Range Interpretation [...] 1663) SOURCE(BEAKER) (test code = 2795) POCT-GLUCOSE [id number] 07:19:00 Test Item Value Reference Range Interpretation Comments POC-GLUCOSE METER 241 mg/dL 70-110 H TESTED AT [address] (BEAKER) (test code [facility] [place] = 1538) [address] CT, [id number] 19:16:00FINAL REPORT CT OF THE ABDOMEN AND [...] Verified Date/Time: 09/22/2017 19:16:29 Reading Location: [facility] C013 Consult Reading Room BASI METABOLIC [id number] 17:37:00 Test Item Value Reference Range Interpretation [...] 697) EGFR (BEAKER) (test 64 mL/min/1.73 ESTIMA SARAN GFR IS code = 1092) sq m NOT ACCURATE CREATININE CLEARANCE IN PREDICTING GLOMERULAR FILTRATION RATE . ESTIMATED GFR I S NOT APPLICABLE FOR DIALYSIS PATIEN TS. TROPONIN [id number] 17:07:00 Test Item Value Reference Range Interpretation [...] (test code = 749) 26 U/L 6-51 [id number] 16:51:00 Test Item Value Reference Range Interpretation Comments AMYLASE (BEAKER) (test 32 U/L 30-110 Speci men markedly code = 349) hemolyzed URINALYSIS W/ [id number] 16:21:00 Test Item Value Reference Range Interpretation [...] = 2795) CBC W/PLT COUNT & AUTO [id number] 16:15:00 Test Item Value Reference Range Interpretation [...] L 0.00-0.20 (test code = 417) POCT-GLUCOSE [id number] 15:36:00 Test Item Value Reference Range Interpretation Comments POC-GLUCOSE METER 284 mg/dL 70-110 H TESTED AT [address] ([facility]) (test code [facility] [place] = 1538) [address] CT, [id number] 15:32:00Reason for exam:->LLQ ABD PAINIs the patient [...] prior examination dated 07/09/2016. Signed: Gama Valdez Verified Date/Time: 07/07/2017 15:32:20 Reading Location: [facility] B1 C013Y CT Body Reading Room LIPASE 2017-07-07 14:41:00 Test Item Value Reference Range Interpretation Comments LIPASE (BEAKER) (test code = 749) 32 U/L 6-51 COMPREHENSIVE METABOLIC [id number] 14:40:00 Test Item Value Reference Range Interpretation [...] 347) EGFR (BEAKER) (test 76 mL/min/1.73 ESTIMA SARAN GFR IS code = 1092) sq m NOT ACCURATE CREATININE CLEARANCE IN PREDICTING GLOMERULAR FILTRATION RATE . ESTIMATED GFR I S NOT APPLICABLE FOR DIALYSIS PATIEN TS. POCT-GLUCOSE [id number] 14:10:00 Test Item Value Reference Range Interpretation Comments POC-GLUCOSE METER 352 mg/dL 70-110 H TESTED AT [facility] [address] (test code [facility] [place] = 1538) [address] CBC W/PLT COUNT & AUTO [id number] 13:30:00 Test Item Value Reference Range Interpretation [...] 0.00-0.20 (test code = 417) URINALYSIS W/ [id number] 13:01:00 Test Item Value Reference Range Interpretation [...] 1663) SOURCE(BEAKER) (test code = 2795) KETONE, [id number] 12:58:00 Test Item Value Reference Range Interpretation Comments KETONES, BLOOD (BEAKER) (test code 0.1 mmol/L <0.4 = 1103) BLOOD GAS, [id number] 12:48:00 Test Item Value Reference Range Interpretation [...] (test code = 1819) 37.0 % POCT-GLUCOSE [id number] 12:04:00 Test Item Value Reference Range Interpretation Comments POC-GLUCOSE METER > mg/dL 70-110 HH OUTSIDE ME ASURING (BEAKER) (test code RANGETES SARAN AT [facility] 1317 = 1538) [facility] [address] BACTERIAL - [id number] 03:02:00 Test Item Value Reference Range Interpretation Comments Strep pneumoniae Ag Negative (02/25/17 (test code = Strep 9:02 PM) pneumoniae Ag) [facility] [id number] 03:02:00 Test Item Value Reference Range Interpretation Comments Source Strep (test code Cerebral Spinal Fluid = Source Strep) [facility] [id number] 03:02:00 Test Item Value Reference Range Interpretation Comments Tube Num CSF (test code = Tube Num CSF) 1 1 [facility] [id number] 03:02:00 Test Item Value Reference Range Interpretation Comments Clarity CSF (test code = Clear (02/25/17 9:02 Clarity CSF) PM) [facility] [id number] 03:02:00 Test Item Value Reference Range Interpretation Comments Color CSF (test code Colorless (02/25/17 9:02 = Color CSF) PM) [facility] [id number] 03:02:00 Test Item Value Reference Range Interpretation Comments Supernat CSF (test Colorless (02/25/17 code = Supernat CSF) 9:02 PM) [facility] [id number] 03:02:00 Test Item Value Reference Range Interpretation Comments WBC CSF (test code = 2 See_Comment [Autom ated message] The WBC CSF) system which ge nerated this result transmit saran reference range : <=53. The reference range was not used to interpr et this result as justina l/abnormal. [facility] [id number] 03:02:00 Test Item Value Reference Range Interpretation Comments RBC CSF (test code = 1 See_Comment [Autom ated message] The RBC CSF) system which ge nerated this result transmit saran reference range : <=03. The reference range was not used to interpr et this result as justina l/abnormal. [facility] [id number] 03:02:00 Test Item Value Reference Range Interpretation Comments RBC CSF (test code = 1 See_Comment [Autom ated message] The RBC CSF) system which ge nerated this result transmit saran reference range : <=03. The reference range was not used to interpr et this result as justina l/abnormal. [facility]2017-11-15 03:02:00 Test Item Value Reference Range Interpretation Comments WBC CSF (test code = 2 See_Comment [Autom ated message] The WBC CSF) system which ge nerated this result transmit saran reference range : <=53. The reference range was not used to interpr et this result as justina l/abnormal. [facility] [id number] 03:02:00 Test Item Value Reference Range Interpretation Comments Supernat CSF (test Colorless (02/25/17 code = Supernat CSF) 9:02 PM) [facility]2017-11-15 03:02:00 Test Item Value Reference Range Interpretation Comments Clarity CSF (test code = Clear (02/25/17 9:02 Clarity CSF) PM) [facility]2017-11-15 03:02:00 Test Item Value Reference Range Interpretation Comments Tube Num CSF (test code = Tube Num CSF) 4 1 [facility]2017-11-15 03:02:00 Test Item Value Reference Range Interpretation Comments Color CSF (test code Colorless (02/25/17 9:02 = Color CSF) PM) [facility]2017-11-15 03:02:00 Test Item Value Reference Range Interpretation Comments Glucose CSF (test code = Glucose CSF) 219 45-80 [facility]2017-11-15 03:02:00 Test Item Value Reference Range Interpretation Comments Protein CSF (test code = Protein CSF) 55 15-45 [facility] [id number] 03:02:00 Test Item Value Reference Range Interpretation Comments Crypto Ag CSF (test Negative (02/25/17 9:02 code = Crypto Ag CSF) PM) [facility] CenterAqnrqmlSGZCZAFQFO0283-09-27 03:02:00 Test Item Value Reference Range Interpretation Comments VDRL Scr CSF (test Non Reactive (02/25/17 code = VDRL Scr CSF) 9:02 PM) [facility]annMOLE[facility]ULAR [id number] 03:02:00 Test Item Value Reference Range Interpretation Comments HSV 2 by PCR (test Negative 2(02/25/17 9:02 code = HSV 2 by PCR) PM) [facility] CenterannMUSCOGEEULAR [id number] 03:02:00 Test Item Value Reference Range Interpretation Comments HSV 1 by PCR (test Negative 1(02/25/17 9:02 code = HSV 1 by PCR) PM) [facility] CenterannMUSCOGEEULAR [id number] 03:02:00 Test Item Value Reference Range Interpretation Comments Source HSV (test code = Cerebral Spinal Fluid Source HSV) [facility] CenterannVIRAL - [id number] 03:02:00 Test Item Value Reference Range Interpretation Comments Enterovirus PCR CSF Negative (02/25/17 (test code = Enterovirus 9:02 PM) PCR CSF) [facility] RockCHEM [id number] 01:42:00 Test Item Value Reference Range Interpretation Comments A/G Ratio (test code = A/G Ratio) 0.9 0.7-1.6 [facility]annCHE[facility] [id number] 01:42:00 Test Item Value Reference Range Interpretation Comments B/C Ratio (test code = B/C Ratio) 23 6-25 [facility] [id number] 01:42:00 Test Item Value Reference Range Interpretation Comments Globulin (test code = Globulin) 4.3 2.7-4.2 [facility] [id number] 01:42:00 Test Item Value Reference Range Interpretation Comments AGAP (test code = AGAP) 11.3 10.0-20.0 [facility] [id number] 01:42:00 Test Item Value Reference Range Interpretation Comments eGFR (test code = eGFR) 101 [facility] [id number] 01:42:00 Test Item Value Reference Range Interpretation Comments Bili Total (test code = Bili Total) 0.3 0.2-1.3 [facility]2017-11-15 01:42:00 Test Item Value Reference Range Interpretation Comments BUN (test code = BUN) 16 7-22 [facility]2017-11-15 01:42:00 Test Item Value Reference Range Interpretation Comments ALANINE AMINOTRANSFERASE 17 See_Comment [A utomated message] (test code = ALANINE The sys tem which AMINOTRANSFERASE) generated this result transmitted ref erence range: <=65. Th e reference range was not used to int erpret this result as normal/abnormal . [facility]2017-11-15 01:42:00 Test Item Value Reference Range Interpretation Comments Total Protein (test code = Total 8.2 6.4-8.4 Protein) [facility]2017-11-15 01:42:00 Test Item Value Reference Range Interpretation Comments Potassium Lvl (test code = Potassium 4.3 3.5-5.1 Lvl) [facility]2017-11-15 01:42:00 Test Item Value Reference Range Interpretation Comments Sodium Lvl (test code = Sodium Lvl) 130 135-145 [facility]2017-11-15 01:42:00 Test Item Value Reference Range Interpretation Comments Creatinine Lvl (test code = Creatinine 0.70 0.50-1.40 Lvl) [facility]2017-11-15 01:42:00 Test Item Value Reference Range Interpretation Comments Glucose Lvl (test code = Glucose Lvl) 340 70-99 [facility]2017-11-15 01:42:00 Test Item Value Reference Range Interpretation Comments Calcium Lvl (test code = Calcium Lvl) 8.9 8.5-10.5 [facility]2017-11-15 01:42:00 Test Item Value Reference Range Interpretation Comments Chloride Lvl (test code = Chloride Lvl) 97 95-109 [facility]2017-11-15 01:42:00 Test Item Value Reference Range Interpretation Comments CO2 (test code = CO2) 26 24-32 [facility]2017-11-15 01:42:00 Test Item Value Reference Range Interpretation Comments Alk Phos (test code = Alk Phos) 158 39-136 [facility]2017-11-15 01:42:00 Test Item Value Reference Range Interpretation Comments ASPARTATE TRANSAMINASE 16 See_Comment [Aut omated message] (test code = ASPARTATE The s ystem which TRANSAMINASE) generated this result transmitted ref erence range: <=37. Th e reference range was not used to interpr et this result as normal/abnormal . [facility]2017-11-15 01:42:00 Test Item Value Reference Range Interpretation Comments Albumin Lvl (test code = Albumin Lvl) 3.9 3.5-5.0 [facility]2017-11-15 01:42:00 Test Item Value Reference Range Interpretation Comments Lactic Acid Lvl (test code = Lactic 1.8 0.5-2.2 Acid Lvl) [facility] Arli[id number] 01:42:00 Test Item Value Reference Range Interpretation Comments Platelet (test code = Platelet) 305 133-450 [facility] ArlingtonCauxskoOUIXXWASQP6263-64-44 01:42:00 Test Item Value Reference Range Interpretation Comments MCV (test code = MCV) 82.2 80.0-98.0 [facility] ArlingtonYrzbezhQPSXOBWCAQ7727-62-21 01:42:00 Test Item Value Reference Range Interpretation Comments Hct (test code = Hct) 37.1 36.0-48.0 [facility] ArlingtonFxvrcspWEGGBZWTCC0247-31-27 01:42:00 Test Item Value Reference Range Interpretation Comments MPV (test code = MPV) 7.4 7.4-10.4 [facility] ArlingtonRdlbpgbILYVNHHVTM8637-11-89 01:42:00 Test Item Value Reference Range Interpretation Comments RDW (test code = RDW) 14.1 11.5-14.5 [facility] ArlingtonHkfrlwbKAMNXNGTCU9744-66-48 01:42:00 Test Item Value Reference Range Interpretation Comments MCH (test code = MCH) 27.6 pg 27.0-31.0 [facility] ArlingtonAfthavyZQDWTEGBZT2233-96-39 01:42:00 Test Item Value Reference Range Interpretation Comments MCHC (test code = MCHC) 33.6 32.0-36.0 [facility] ArlingtonUpkxxmkMTAQTDHAZN7557-96-75 01:42:00 Test Item Value Reference Range Interpretation Comments RBC X 10x6 (test code = RBC X 10x6) 4.52 4.20-5.40 [place] [id number] 01:42:00 Test Item Value Reference Range Interpretation Comments Hgb (test code = Hgb) 12.5 12.0-16.0 [facility] ArlingtonIhwcofeIZVTORCIOO9674-37-75 01:42:00 Test Item Value Reference Range Interpretation Comments WBC X 10x3 (test code = WBC X 10x3) 7.1 3.7-10.4 [facility] ArlingtonJdclxhxRQETKCESSL2752-36-89 01:42:00 Test Item Value Reference Range Interpretation Comments Basophils (test code = 0.8 See_Comment [Aut omated message] The Basophils) system which ge nerated this result tra nsmitted reference range : <=1.0. The reference r kehinde was not used to int erpret this result as normal/abnormal . [facility] ArlingtonYucjigkNNAAIMKLMZ7690-89-72 01:42:00 Test Item Value Reference Range Interpretation Comments Lymphocytes # (test code = Lymphocytes 2.8 1.0-5.5 #) [facility] ArlingtonVyolrdtUKEVVDEWQW5015-10-64 01:42:00 Test Item Value Reference Range Interpretation Comments Segs-Bands # (test code = Segs-Bands #) 3.8 1.5-8.1 [facility] ArlingtonIsfpqbjNPRDABMMWD8393-54-74 01:42:00 Test Item Value Reference Range Interpretation Comments Monocytes # (test code 0.4 See_Comment [Aut omated message] The = Monocytes #) system which generated this result tra nsmitted reference range : <=0.8. The reference r kehinde was not used to int erpret this result as normal/abnormal . [facility] ArlingtonVdowhpjVHGIYGBUVQ0130-15-67 01:42:00 Test Item Value Reference Range Interpretation Comments Segs (test code = Segs) 53.4 45.0-75.0 [facility] ArlingtonQpugfphSMHRDDPAIH7443-38-52 01:42:00 Test Item Value Reference Range Interpretation Comments Lymphocytes (test code = Lymphocytes) 39.1 20.0-40.0 [facility] ArlingtonCvkwcanNFOHDCHVRB8437-20-65 01:42:00 Test Item Value Reference Range Interpretation Comments Eosinophils (test code = 1.4 See_Comment [A utomated message] The Eosinophils) system which ge nerated this result tra nsmitted reference range : <=4.0. The reference r kehinde was not used to int erpret this result as normal/abnormal . [facility] ArlingtonJykmnclOKLVYOOORA7711-42-29 01:42:00 Test Item Value Reference Range Interpretation Comments Monocytes (test code = Monocytes) 5.3 2.0-12.0 [facility] ArlingtonZyakpoyCVHQWATZOI4770-72-67 01:42:00 Test Item Value Reference Range Interpretation Comments Basophils # (test code 0.1 See_Comment [Aut omated message] The = Basophils #) system which generated this result tra nsmitted reference range : <=0.2. The reference r kehinde was not used to int erpret this result as normal/abnormal . [facility] ArlingtonMtcrlcqFONXDRWQOC1930-89-60 01:42:00 Test Item Value Reference Range Interpretation Comments Eosinophils # (test code 0.1 See_Comment [A utomated message] The = Eosinophils #) system whic h generated this result tra nsmitted reference range : <=0.5. The reference r kehinde was not used to int erpret this result as normal/abnormal . [facility] AND [id number] 01:42:00 Test Item Value Reference Range Interpretation Comments UA Urobilinogen (test code = UA 0.2 0.1-1.0 Urobilinogen) [facility] AND [id number] 01:42:00 Test Item Value Reference Range Interpretation Comments UA Nitrite (test code Negative (02/25/17 7:42 = UA Nitrite) PM) [facility] AND [id number] 01:42:00 Test Item Value Reference Range Interpretation Comments UA Bili (test code = Negative *NA*(02/25/17 UA Bili) 7:42 PM) [facility] AND [id number] 01:42:00 Test Item Value Reference Range Interpretation Comments UA Ketones (test code Negative *NA*(02/25/17 = UA Ketones) 7:42 PM) [facility] AND [id number] 01:42:00 Test Item Value Reference Range Interpretation Comments UA Bacteria (test code = UA Many /HPF Bacteria) [facility] AND [id number] 01:42:00 Test Item Value Reference Range Interpretation Comments UA WBC (test code = UA WBC) 0-2 /HPF [facility] AND [id number] 01:42:00 Test Item Value Reference Range Interpretation Comments UA RBC (test code = 0-2 /HPF See_Comment [Automa saran message] The UA RBC) system which ge nerated this result tra nsmitted reference range : <=2. The reference range was not used to interpr et this result as justina l/abnormal. [facility] AND [id number] 01:42:00 Test Item Value Reference Range Interpretation Comments UA Leuk Est (test Negative (02/25/17 7:42 code = UA Leuk Est) PM) [facility] AND [id number] 01:42:00 Test Item Value Reference Range Interpretation Comments UA Sq Epi (test code = UA Sq Epi) Few /LPF [facility] AND [id number] 01:42:00 Test Item Value Reference Range Interpretation Comments UA Blood (test code = Negative (02/25/17 7:42 UA Blood) PM) [facility] AND [id number] 01:42:00 Test Item Value Reference Range Interpretation Comments UA Glucose (test code = UA >=1000 mg/dL Glucose) [facility] AND [id number] 01:42:00 Test Item Value Reference Range Interpretation Comments UA Protein (test code Negative (02/25/17 7:42 = UA Protein) PM) [facility] AND [id number] 01:42:00 Test Item Value Reference Range Interpretation Comments UA pH (test code = UA pH) 6.0 1 5.0-8.0 [facility] AND [id number] 01:42:00 Test Item Value Reference Range Interpretation Comments UA Spec Grav (test code = UA Spec 1.010 1 Grav) [facility] AND [id number] 01:42:00 Test Item Value Reference Range Interpretation Comments UA Color (test code = Yellow *NA*(02/25/17 UA Color) 7:42 PM) [facility] AND [id number] 01:42:00 Test Item Value Reference Range Interpretation Comments UA Turbidity (test code Slight Cloudy = UA Turbidity) (02/25/17 7:42 PM) [facility] [id number] 01:42:00 Test Item Value Reference Range Interpretation Comments Influ B (test code = Negative (02/25/17 7:42 Influ B) PM) [facility] [id number] 01:42:00 Test Item Value Reference Range Interpretation Comments Influ A (test code = Negative (02/25/17 7:42 Influ A) PM) [facility] [id number] 09:02:00 Test Item Value Reference Range Interpretation Comments eGFR (test code = eGFR) 121 [facility]2017-10-15 09:02:00 Test Item Value Reference Range Interpretation Comments Bili Total (test code = Bili Total) 0.2 0.2-1.3 [facility]2017-10-15 09:02:00 Test Item Value Reference Range Interpretation Comments Alk Phos (test code = Alk Phos) 165 39-136 [facility]2017-10-15 09:02:00 Test Item Value Reference Range Interpretation Comments B/C Ratio (test code = B/C Ratio) 12 6-25 [facility]2017-10-15 09:02:00 Test Item Value Reference Range Interpretation Comments Globulin (test code = Globulin) 3.3 2.7-4.2 [facility]2017-10-15 09:02:00 Test Item Value Reference Range Interpretation Comments Albumin Lvl (test code = Albumin Lvl) 2.4 3.5-5.0 [facility]2017-10-15 09:02:00 Test Item Value Reference Range Interpretation Comments Total Protein (test code = Total 5.7 6.4-8.4 Protein) [facility]2017-10-15 09:02:00 Test Item Value Reference Range Interpretation Comments AGAP (test code = AGAP) 9.7 10.0-20.0 [facility]2017-10-15 09:02:00 Test Item Value Reference Range Interpretation Comments Glucose Lvl (test code = Glucose Lvl) 261 70-99 [facility]2017-10-15 09:02:00 Test Item Value Reference Range Interpretation Comments Calcium Lvl (test code = Calcium Lvl) 7.4 8.5-10.5 [facility]2017-10-15 09:02:00 Test Item Value Reference Range Interpretation Comments A/G Ratio (test code = A/G Ratio) 0.7 0.7-1.6 [facility]2017-10-15 09:02:00 Test Item Value Reference Range Interpretation Comments Creatinine Lvl (test code = Creatinine 0.40 0.50-1.40 Lvl) [facility] [id number] 09:02:00 Test Item Value Reference Range Interpretation Comments BUN (test code = BUN) 5 7-22 [facility] [id number] 09:02:00 Test Item Value Reference Range Interpretation Comments ASPARTATE TRANSAMINASE 37 See_Comment [Aut omated message] (test code = ASPARTATE The s ystem which TRANSAMINASE) generated this result transmitted ref erence range: <=37. Th e reference range was not used to interpr et this result as normal/abnormal . [facility] [id number] 09:02:00 Test Item Value Reference Range Interpretation Comments ALANINE AMINOTRANSFERASE 44 See_Comment [A utomated message] (test code = ALANINE The sys tem which AMINOTRANSFERASE) generated this result transmitted ref erence range: <=65. Th e reference range was not used to int erpret this result as normal/abnormal . [facility] [id number] 09:02:00 Test Item Value Reference Range Interpretation Comments Potassium Lvl (test code = Potassium 3.7 3.5-5.1 Lvl) [facility]2017-10-15 09:02:00 Test Item Value Reference Range Interpretation Comments Sodium Lvl (test code = Sodium Lvl) 137 135-145 [facility] [id number] 09:02:00 Test Item Value Reference Range Interpretation Comments CO2 (test code = CO2) 25 24-32 [facility] [id number] 09:02:00 Test Item Value Reference Range Interpretation Comments Chloride Lvl (test code = Chloride Lvl) 106 95-109 [facility] [id number] 22:26:00 Test Item Value Reference Range Interpretation Comments Troponin-I (test code no gt See_Comment [Auto mated message] The = Troponin-I) system which g enerated this result transmit saran reference range : <=0.40. The reference r kehinde was not used to interpr et this result as justina l/abnormal. [facility] RockPARATHYROID [id number] 22:26:00 Test Item Value Reference Range Interpretation Comments Ca Norm WB (test code = Ca Norm WB) 0.99 1.05-1.25 [facility] RockPARATHYRO[facility] [id number] 22:26:00 Test Item Value Reference Range Interpretation Comments Ca Ion WB (test code = Ca Ion WB) 1.01 1.05-1.25 [facility]2017-10-14 20:00:00 Test Item Value Reference Range Interpretation Comments Albumin Lvl (test code = Albumin Lvl) 2.6 3.5-5.0 [facility]2017-10-14 20:00:00 Test Item Value Reference Range Interpretation Comments eGFR (test code = eGFR) 112 [facility]2017-10-14 20:00:00 Test Item Value Reference Range Interpretation Comments Creatinine Lvl (test code = Creatinine 0.50 0.50-1.40 Lvl) [facility]2017-10-14 20:00:00 Test Item Value Reference Range Interpretation Comments Sodium Lvl (test code = Sodium Lvl) 135 135-145 [facility]2017-10-14 20:00:00 Test Item Value Reference Range Interpretation Comments Potassium Lvl (test code = Potassium 3.6 3.5-5.1 Lvl) [facility]2017-10-14 20:00:00 Test Item Value Reference Range Interpretation Comments CO2 (test code = CO2) 25 24-32 [facility]2017-10-14 20:00:00 Test Item Value Reference Range Interpretation Comments Chloride Lvl (test code = Chloride Lvl) 105 95-109 [facility]2017-10-14 20:00:00 Test Item Value Reference Range Interpretation Comments AGAP (test code = AGAP) 8.6 10.0-20.0 [facility]2017-10-14 20:00:00 Test Item Value Reference Range Interpretation Comments Calcium Lvl (test code = Calcium Lvl) 6.9 8.5-10.5 [facility]2017-10-14 20:00:00 Test Item Value Reference Range Interpretation Comments Glucose Lvl (test code = Glucose Lvl) 263 70-99 [facility]2017-10-14 20:00:00 Test Item Value Reference Range Interpretation Comments BUN (test code = BUN) 8 7-22 [facility]2017-10-14 08:54:00 Test Item Value Reference Range Interpretation Comments Phosphorus (test code = Phosphorus) 2.7 2.5-4.5 [facility]2017-10-14 08:54:00 Test Item Value Reference Range Interpretation Comments eGFR (test code = eGFR) 106 [place] [id number] 08:54:00 Test Item Value Reference Range Interpretation Comments Creatinine Lvl (test code = Creatinine 0.60 0.50-1.40 Lvl) [facility]2017-10-14 08:54:00 Test Item Value Reference Range Interpretation Comments BUN (test code = BUN) 9 7-22 [facility]2017-10-14 08:54:00 Test Item Value Reference Range Interpretation Comments Glucose Lvl (test code = Glucose Lvl) 405 70-99 [facility]2017-10-14 08:54:00 Test Item Value Reference Range Interpretation Comments AGAP (test code = AGAP) 12.5 10.0-20.0 [facility]2017-10-14 08:54:00 Test Item Value Reference Range Interpretation Comments Potassium Lvl (test code = Potassium 3.5 3.5-5.1 Lvl) [facility]2017-10-14 08:54:00 Test Item Value Reference Range Interpretation Comments Chloride Lvl (test code = Chloride Lvl) 102 95-109 [facility]2017-10-14 08:54:00 Test Item Value Reference Range Interpretation Comments CO2 (test code = CO2) 23 24-32 [facility]2017-10-14 08:54:00 Test Item Value Reference Range Interpretation Comments Calcium Lvl (test code = Calcium Lvl) 7.1 8.5-10.5 [facility]2017-10-14 08:54:00 Test Item Value Reference Range Interpretation Comments Sodium Lvl (test code = Sodium Lvl) 134 135-145 [facility]2017-10-14 08:54:00 Test Item Value Reference Range Interpretation Comments Magnesium Lvl (test code = Magnesium 1.7 1.8-2.4 Lvl) [facility] ArlingtonXuzxuelERWZDRXGXP6743-20-91 08:54:00 Test Item Value Reference Range Interpretation Comments MPV (test code = MPV) 7.4 7.4-10.4 [facility] ArlingtonTczsbxiDAAIRZYWEP0931-19-30 08:54:00 Test Item Value Reference Range Interpretation Comments RDW (test code = RDW) 13.6 11.5-14.5 [facility] Arl[id number] 08:54:00 Test Item Value Reference Range Interpretation Comments Platelet (test code = Platelet) 244 133-450 [facility] ArlingtonIlhtxifYZSLXDAYVS0933-75-41 08:54:00 Test Item Value Reference Range Interpretation Comments MCHC (test code = MCHC) 33.4 32.0-36.0 [facility] ArlingtonLflbvrsGVZNWESWHO1156-58-68 08:54:00 Test Item Value Reference Range Interpretation Comments MCV (test code = MCV) 82.5 80.0-98.0 [facility] ArlingtonBuepfqfYSELSHZUTK9130-11-36 08:54:00 Test Item Value Reference Range Interpretation Comments MCH (test code = MCH) 27.6 pg 27.0-31.0 [facility] ArlingtonUosybeyTUMLTDFJST5516-86-10 08:54:00 Test Item Value Reference Range Interpretation Comments Hgb (test code = Hgb) 10.7 12.0-16.0 [facility] ArlingtonPcmwsjfBPCKWKLIHM6200-16-70 08:54:00 Test Item Value Reference Range Interpretation Comments Hct (test code = Hct) 32.0 36.0-48.0 [facility] ArlingtonVwblfibPMTXJOZYOC2328-78-27 08:54:00 Test Item Value Reference Range Interpretation Comments WBC X 10x3 (test code = WBC X 10x3) 5.5 3.7-10.4 [facility] ArlingtonXxqtenbIXSOLSFHTY7187-61-87 08:54:00 Test Item Value Reference Range Interpretation Comments RBC X 10x6 (test code = RBC X 10x6) 3.88 4.20-5.40 [facility] ArlingtonPdioxwfAWZJYEZZSC9336-37-14 08:54:00 Test Item Value Reference Range Interpretation Comments Monocytes (test code = Monocytes) 7.2 2.0-12.0 [facility] ArlingtonLfwtkaiLTOXQJSCJL2971-23-80 08:54:00 Test Item Value Reference Range Interpretation Comments Monocytes # (test code 0.4 See_Comment [Aut omated message] The = Monocytes #) system which generated this result tra nsmitted reference range : <=0.8. The reference r kehinde was not used to int erpret this result as normal/abnormal . [facility] ArlingtonHxlauuyXWZIKZYDJH7360-83-09 08:54:00 Test Item Value Reference Range Interpretation Comments Segs-Bands # (test code = Segs-Bands #) 3.0 1.5-8.1 [facility] ArlingtonFwqqabhFVQTBHZFGQ8381-86-16 08:54:00 Test Item Value Reference Range Interpretation Comments Lymphocytes # (test code = Lymphocytes 2.0 1.0-5.5 #) [facility] ArlingtonKyjtrzaTUOZGDEQZX1658-82-34 08:54:00 Test Item Value Reference Range Interpretation Comments Eosinophils (test code = 0.9 See_Comment [A utomated message] The Eosinophils) system which ge nerated this result tra nsmitted reference range : <=4.0. The reference r kehinde was not used to int erpret this result as normal/abnormal . [facility] ArlingtonTxcdqgyYGQTGZRWRB6433-16-99 08:54:00 Test Item Value Reference Range Interpretation Comments Basophils (test code = 0.6 See_Comment [Aut omated message] The Basophils) system which ge nerated this result tra nsmitted reference range : <=1.0. The reference r kehinde was not used to int erpret this result as normal/abnormal . [facility] ArlingtonGirckjoWAFLVOHDBW0472-46-94 08:54:00 Test Item Value Reference Range Interpretation Comments Lymphocytes (test code = Lymphocytes) 36.3 20.0-40.0 [facility] HospitalDcxiazoPUSUEYQDJJ5627-76-95 08:54:00 Test Item Value Reference Range Interpretation Comments Segs (test code = Segs) 55.0 45.0-75.[address] [facility] [id number] 08:54:00 Test Item Value Reference Range Interpretation Comments Hgb A1C (test code = Hgb A1C) >16.0 % [facility] AND [id number] 04:54:00 Test Item Value Reference Range Interpretation Comments UA Sq Epi (test code = UA Sq Occasional /LPF Epi) [facility] [id number] 04:54:00 Test Item Value Reference Range Interpretation Comments UA WBC (test code = UA WBC) 11-20 /HPF [facility] [id number] 04:54:00 Test Item Value Reference Range Interpretation Comments UA Bacteria (test code = UA Moderate /HPF Bacteria) [facility] [id number] 04:54:00 Test Item Value Reference Range Interpretation Comments UA RBC (test code = 0-2 /HPF See_Comment [Automa saran message] The UA RBC) system which ge nerated this result tra nsmitted reference range : <=2. The reference range was not used to interpr et this result as justina l/abnormal. [facility] AND [id number] 04:54:00 Test Item Value Reference Range Interpretation Comments UA Leuk Est (test Negative (01/24/17 11:54 code = UA Leuk Est) PM) [facility] AND [id number] 04:54:00 Test Item Value Reference Range Interpretation Comments UA Nitrite (test code Positive *ABN*(01/24/17 = UA Nitrite) 11:54 PM) [facility] AND [id number] 04:54:00 Test Item Value Reference Range Interpretation Comments UA Blood (test code = Negative (01/24/17 11:54 UA Blood) PM) [facility] AND [id number] 04:54:00 Test Item Value Reference Range Interpretation Comments UA Bili (test code = Negative *NA*(01/24/17 UA Bili) 11:54 PM) [facility] AND [id number] 04:54:00 Test Item Value Reference Range Interpretation Comments UA Glucose (test code = UA >=1000 mg/dL Glucose) [facility] AND [id number] 04:54:00 Test Item Value Reference Range Interpretation Comments UA Protein (test code Negative (01/24/17 = UA Protein) 11:54 PM) [facility] AND [id number] 04:54:00 Test Item Value Reference Range Interpretation Comments UA Urobilinogen (test code = UA 0.2 0.1-1.0 Urobilinogen) [facility] AND [id number] 04:54:00 Test Item Value Reference Range Interpretation Comments UA Ketones (test code Negative *NA*(01/24/17 = UA Ketones) 11:54 PM) [facility] AND [id number] 04:54:00 Test Item Value Reference Range Interpretation Comments UA pH (test code = UA pH) 5.5 1 5.0-8.0 [facility] AND [id number] 04:54:00 Test Item Value Reference Range Interpretation Comments UA Spec Grav (test *NA*(01/24/17 11:54 PM) code = UA Spec Grav) [facility] [id number] 04:54:00 Test Item Value Reference Range Interpretation Comments UA Color (test code = Yellow *NA*(01/24/17 UA Color) 11:54 PM) [facility] [id number] 04:54:00 Test Item Value Reference Range Interpretation Comments UA Turbidity (test code = Clear (01/24/17 UA Turbidity) 11:54 PM) [facility] [id number] 02:44:00 Test Item Value Reference Range Interpretation Comments Total CK (test code = Total CK) 62 12-191 [facility] [id number] 02:44:00 Test Item Value Reference Range Interpretation Comments CK MB (test code = CK MB) no gt 0.5-3.6 [facility]NextannCARSchool[facility]AC [id number] 02:44:00 Test Item Value Reference Range Interpretation Comments Troponin-I (test code no gt See_Comment [Auto mated message] The = Troponin-I) system which g enerated this result transmit saran reference range : <=0.40. The reference r kehinde was not used to interpr et this result as justina l/abnormal. [facility] [id number] 02:44:00 Test Item Value Reference Range Interpretation Comments CK-MB INDEX (test no gt See_Comment [Automate d message] The code = CK-MB INDEX) system w [facility] generated this result transmit saran reference range : <=2.5. The reference range was not used to interpr et this result as justina l/abnormal. [facility] [id number] 02:44:00 Test Item Value Reference Range Interpretation Comments ASPARTATE TRANSAMINASE 14 See_Comment [Aut omated message] (test code = ASPARTATE The s ystem which TRANSAMINASE) generated this result transmitted ref erence range: <=37. Th e reference range was not used to interpr et this result as normal/abnormal . [facility] [id number] 02:44:00 Test Item Value Reference Range Interpretation Comments Bili Total (test code = Bili Total) 0.5 0.2-1.3 [facility]2017-10-14 02:44:00 Test Item Value Reference Range Interpretation Comments ALANINE AMINOTRANSFERASE 37 See_Comment [A utomated message] (test code = ALANINE The sys tem which AMINOTRANSFERASE) generated this result transmitted ref erence range: <=65. Th e reference range was not used to int erpret this result as normal/abnormal . [facility]2017-10-14 02:44:00 Test Item Value Reference Range Interpretation Comments Alk Phos (test code = Alk Phos) 222 39-136 [facility]2017-10-14 02:44:00 Test Item Value Reference Range Interpretation Comments A/G Ratio (test code = A/G Ratio) 0.7 0.7-1.6 [facility]2017-10-14 02:44:00 Test Item Value Reference Range Interpretation Comments Globulin (test code = Globulin) 4.7 2.7-4.2 [facility]2017-10-14 02:44:00 Test Item Value Reference Range Interpretation Comments Albumin Lvl (test code = Albumin Lvl) 3.5 3.5-5.0 [facility]2017-10-14 02:44:00 Test Item Value Reference Range Interpretation Comments B/C Ratio (test code = B/C Ratio) 16 6-25 [facility]2017-10-14 02:44:00 Test Item Value Reference Range Interpretation Comments Total Protein (test code = Total 8.2 6.4-8.4 Protein) [facility]2017-10-14 02:44:00 Test Item Value Reference Range Interpretation Comments Lipase Lvl (test code = Lipase Lvl) 168 73-393 [facility] ArlingtonZfxldygAOYOHXRDOJ4435-32-92 02:44:00 Test Item Value Reference Range Interpretation Comments Hgb (test code = Hgb) 13.7 12.0-16.0 [facility] ArlingtonLlxzsxbWVHLYHGKRU2369-01-64 02:44:00 Test Item Value Reference Range Interpretation Comments Hct (test code = Hct) 41.6 36.0-48.0 [facility] ArlingtonMbmweczPCWGHOOATW1693-91-28 02:44:00 Test Item Value Reference Range Interpretation Comments MCV (test code = MCV) 83.6 80.0-98.0 [place] [id number] 02:44:00 Test Item Value Reference Range Interpretation Comments MCH (test code = MCH) 27.5 pg 27.0-31.0 [facility] ArlingtonIsrixftEAJLYKHHTI9289-70-65 02:44:00 Test Item Value Reference Range Interpretation Comments MCHC (test code = MCHC) 32.9 32.0-36.0 [facility] ArlingtonRrehmixEKTRIOWVRN3085-21-02 02:44:00 Test Item Value Reference Range Interpretation Comments RDW (test code = RDW) 13.6 11.5-14.5 [facility] ArlingtonCalxfxdPYAQAIPPSU2483-80-72 02:44:00 Test Item Value Reference Range Interpretation Comments Platelet (test code = Platelet) 314 133-450 [facility] ArlingtonKpfvrsyQQOJVASKCJ6129-47-08 02:44:00 Test Item Value Reference Range Interpretation Comments MPV (test code = MPV) 8.1 7.4-10.4 [facility] ArlingtonXlljujaRDYRQMLJWC8676-70-68 02:44:00 Test Item Value Reference Range Interpretation Comments WBC X 10x3 (test code = WBC X 10x3) 5.8 3.7-10.4 [facility] ArlingtonYcwkpsrSFFYXAGOIF3914-73-71 02:44:00 Test Item Value Reference Range Interpretation Comments RBC X 10x6 (test code = RBC X 10x6) 4.97 4.20-5.40 [facility] ArlingtonIsogdmgVCFTCADIYK4732-58-50 02:44:00 Test Item Value Reference Range Interpretation Comments Monocytes # (test code 0.4 See_Comment [Aut omated message] The = Monocytes #) system which generated this result tra nsmitted reference range : <=0.8. The reference r kehinde was not used to int erpret this result as normal/abnormal . [facility] ArlingtonTmydbqlKHJCZEKHGJ6642-12-89 02:44:00 Test Item Value Reference Range Interpretation Comments Basophils (test code = 0.7 See_Comment [Aut omated message] The Basophils) system which ge nerated this result tra nsmitted reference range : <=1.0. The reference r kehinde was not used to int erpret this result as normal/abnormal . [facility] ArlingtonGtvwreiRMZHOOTLBR8987-11-44 02:44:00 Test Item Value Reference Range Interpretation Comments Segs-Bands # (test code = Segs-Bands #) 3.5 1.5-8.1 [facility] ArlingtonGjrvhfiSYYTGETUQJ4401-12-97 02:44:00 Test Item Value Reference Range Interpretation Comments Monocytes (test code = Monocytes) 7.1 2.0-12.0 [facility] ArlingtonXkfmdycRCQVMAIFTM2323-97-06 02:44:00 Test Item Value Reference Range Interpretation Comments Eosinophils (test code = 0.6 See_Comment [A utomated message] The Eosinophils) system which ge nerated this result tra nsmitted reference range : <=4.0. The reference r kehinde was not used to int erpret this result as normal/abnormal . [facility] ArlingtonHklghyiVDTJTLXCXV5295-42-57 02:44:00 Test Item Value Reference Range Interpretation Comments Lymphocytes # (test code = Lymphocytes 1.8 1.0-5.5 #) [facility] ArlingtonAqghvoqTOAIALIXOM3851-21-62 02:44:00 Test Item Value Reference Range Interpretation Comments Segs (test code = Segs) 59.9 45.0-75.0 [facility] ArlingtonRbdfgrgUNFXSCOFGG3159-85-30 02:44:00 Test Item Value Reference Range Interpretation Comments Lymphocytes (test code = Lymphocytes) 31.7 20.0-40.0 [facility] [id number] 09:22:00 Test Item Value Reference Range Interpretation [...] S Sulfamethoxazole (test code = 47) POCT-GLUCOSE [id number] 23:15:00 Test Item Value Reference Range Interpretation Comments POC-GLUCOSE METER 227 mg/dL 70-110 H TESTED AT [facility] 131[facility] (BEAKER) (test code [address] [facility] [place] = 1538) [address] URINALYSIS W/ [id number] 22:36:00 Test Item Value Reference Range Interpretation [...] 1663) SOURCE(BEAKER) (test code = 2795) KETONE, [id number] 22:32:00 Test Item Value Reference Range Interpretation Comments KETONES, BLOOD (BEAKER) (test code 0.6 mmol/L <0.4 H = 1103) BLOOD GAS, [id number] 22:30:00 Test Item Value Reference Range Interpretation [...] (test code = 1819) 21.0 % SCREEN, [id number] 22:29:00 Test Item Value Reference Range Interpretation Comments TEST URINE (BEAKER) (test Negative code = 583) TROPONIN [id number] 21:42:00 Test Item Value Reference Range Interpretation [...] CK-MB Reference Range:<5 Normal5-10 Borderline>10 AbnormalCOMPREHENSIVE METABOLIC [id number] 21:34:00 Test Item Value Reference Range Interpretation [...] hemolyzed EGFR (BEAKER) (test 66 mL/min/1.73 ESTIMA SARAN GFR IS code = 1092) sq m NOT ACCURATE CREATININE CLEARANCE IN PREDICTING GLOMERULAR FILTRATION RATE . ESTIMATED GFR I S NOT APPLICABLE FOR DIALYSIS PATIEN TS. [id number] 21:32:00 Test Item Value Reference Range Interpretation Comments LIPASE (BEAKER) (test code = 749) 28 U/L 6-51 CBC W/PLT COUNT & AUTO [id number] 20:55:00 Test Item Value Reference Range Interpretation [...] L 0.00-0.20 (test code = 417) POCT-GLUCOSE [id number] 20:56:00 Test Item Value Reference Range Interpretation Comments POC-GLUCOSE METER 446 mg/dL 70-110 HH Notified R Diana DALTON/TESTED AT (BEAKER) (test code SLSL [address] [place] = 1538) [facility] [address] BED[facility] GLU[facility] [id number] 15:13:00 Test Item Value Reference Range Interpretation Comments Comment1 (test code = Comment1) Notify RN/ [facility] GLUCOSE [id number] 15:13:00 Test Item Value Reference Range Interpretation Comments Gluc POC Lifscn (test code = Gluc POC 293 70-99 H Lifscn) [facility] GLUCOSE [id number] 04:18:00 Test Item Value Reference Range Interpretation Comments Comment1 (test code = Comment1) Notify KIRIT/ [facility] GLUCOSE [id number] 04:18:00 Test Item Value Reference Range Interpretation Comments Gluc POC Lifscn (test code = Gluc POC 233 70-99 H Lifscn) [facility] CenterIjkqtyqMTWDTVQQX6745-96-61 03:05:00 Test Item Value Reference Range Interpretation Comments Ketone Quantitative (test code = Ketone 0.14 N Quantitative) [facility] CenterMrbocuqGNHDVKCHU4199-58-58 03:05:00 Test Item Value Reference Range Interpretation Comments AST (test code = AST) 8 See_Comment N [Auto mated message] The system which ge nerated this result transmit saran reference range : <=37. The reference range was not used to interpr et this result as justina l/abnormal. [facility] CenterTewhrfvBBBEMSIUE4346-81-14 03:05:00 Test Item Value Reference Range Interpretation Comments Bili Total (test code = Bili Total) 0.2 0.2-1.3 N [facility] CenterHegoimxOJBSGWYAI4974-39-85 03:05:00 Test Item Value Reference Range Interpretation Comments CO2 (test code = CO2) 27 24-32 N [facility] CenterTkxmqgtSWQDRXHJW5973-13-59 03:05:00 Test Item Value Reference Range Interpretation Comments AGAP (test code = AGAP) 13.2 10.0-20.0 N [facility] CenterDlyumqzDEVWLITZF0224-82-23 03:05:00 Test Item Value Reference Range Interpretation Comments Calcium Lvl (test code = Calcium Lvl) 8.8 8.5-10.5 N [facility] CenterXxtvdvaKXCQMVCIP6502-07-29 03:05:00 Test Item Value Reference Range Interpretation Comments Total Protein (test code = Total 7.6 6.4-8.4 N Protein) [facility] CenterMwjkgalQJYQJGZQA5061-49-35 03:05:00 Test Item Value Reference Range Interpretation Comments B/C Ratio (test code = B/C Ratio) 16 6-25 N [facility] CenterJowtyrvMESNEESLB3837-02-93 03:05:00 Test Item Value Reference Range Interpretation Comments Albumin Lvl (test code = Albumin Lvl) 3.8 3.5-5.0 N [facility] CenterAaijunoUOSPOOGYE0257-01-05 03:05:00 Test Item Value Reference Range Interpretation Comments Globulin (test code = Globulin) 3.8 2.0-4.0 N [facility] CenterUbyzitbDWLBLWQIZ4050-38-84 03:05:00 Test Item Value Reference Range Interpretation Comments A/G Ratio (test code = A/G Ratio) 1.0 0.7-1.6 N [facility] CenterCkwjiljGPNIUMMCS4854-54-78 03:05:00 Test Item Value Reference Range Interpretation Comments Alk Phos (test code = Alk Phos) 116 39-136 N [facility] CenterQgmtbhwZWQDBJDKX2627-11-85 03:05:00 Test Item Value Reference Range Interpretation Comments ALT (test code = ALT) 13 See_Comment N [Auto mated message] The system which ge nerated this result transmit saran reference range : <=65. The reference range was not used to interpr et this result as justina l/abnormal. [facility] CenterSbgjllxBHJRTFEJE4677-18-73 03:05:00 Test Item Value Reference Range Interpretation Comments Glucose Lvl (test code = Glucose Lvl) 476 70-99 A [facility] CenterKbklukaFMCEWNGEY7911-57-10 03:05:00 Test Item Value Reference Range Interpretation Comments Chloride Lvl (test code = Chloride Lvl) 98 95-109 N [facility] CenterJpzjkrcWROOLCSAH3457-55-72 03:05:00 Test Item Value Reference Range Interpretation Comments Creatinine Lvl (test code = Creatinine 0.7 0.5-1.4 N Lvl) [facility] CenterDiwboelLFLQIIKTW1316-55-63 03:05:00 Test Item Value Reference Range Interpretation Comments BUN (test code = BUN) 11 7-22 N [facility] CenterLmltqjjSUCBZSSTX7392-21-26 03:05:00 Test Item Value Reference Range Interpretation Comments Potassium Lvl (test code = Potassium 4.2 3.5-5.1 N Lvl) [facility] CenterGadgubtOWSBTBCKX0937-37-75 03:05:00 Test Item Value Reference Range Interpretation Comments Sodium Lvl (test code = Sodium Lvl) 134 135-145 L [facility]TkqzxduYJACDMKIUO0876-89-80 03:05:00 Test Item Value Reference Range Interpretation Comments RBC (test code = RBC) 4.41 4.20-5.40 N [facility] ArlingtonYunqmncNDELEIBAMX5070-47-41 03:05:00 Test Item Value Reference Range Interpretation Comments WBC (test code = WBC) 5.7 3.7-10.4 N [facility] ArlingtonPvgdxorLUPMSUOJZR1033-25-76 03:05:00 Test Item Value Reference Range Interpretation Comments MCHC (test code = MCHC) 33.2 32.0-36.0 N [facility] ArlingtonQuhewjcPRNVGCJBKK8762-26-36 03:05:00 Test Item Value Reference Range Interpretation Comments Hgb (test code = Hgb) 12.9 12.0-16.0 N [facility] ArlingtonXxnptiwREILEIGOYG5944-76-06 03:05:00 Test Item Value Reference Range Interpretation Comments RDW (test code = RDW) 13.8 11.5-14.5 N [facility] ArlingtonEwurbybGBGPYVDDKF7014-47-35 03:05:00 Test Item Value Reference Range Interpretation Comments MCV (test code = MCV) 88.4 81.0-99.0 N [facility] ArlingtonHctflnyJGGKXHJTQX7897-77-58 03:05:00 Test Item Value Reference Range Interpretation Comments MCH (test code = MCH) 29.3 pg 27.0-31.0 N [facility] ArlingtonJudeanhVEWECJSYPJ0726-58-40 03:05:00 Test Item Value Reference Range Interpretation Comments Hct (test code = Hct) 38.9 36.0-48.0 N [facility] ArlingtonNpdqxicFUBPJWFHQO7453-15-84 03:05:00 Test Item Value Reference Range Interpretation Comments MPV (test code = MPV) 7.5 7.4-10.4 N [facility] ArlingtonLxmxxzmSNGBHZWEIJ5800-55-19 03:05:00 Test Item Value Reference Range Interpretation Comments Platelet (test code = Platelet) 311 133-450 N [facility] ArlingtonKordsvhBZNTZEDPLK8749-17-96 03:05:00 Test Item Value Reference Range Interpretation Comments Segs (test code = Segs) 57.5 45.0-75.0 N [facility] ArlingtonImctisdKAUXGKEQXS7849-82-11 03:05:00 Test Item Value Reference Range Interpretation Comments Basophils (test code = 0.5 See_Comment N [Aut omated message] The Basophils) system which ge nerated this result tra nsmitted reference range : <=1.0. The reference r kehinde was not used to int erpret this result as normal/abnormal . [facility] ArlingtonUfhuirrLFAUOTBSVD8294-04-84 03:05:00 Test Item Value Reference Range Interpretation Comments Eosinophils (test code = 1.5 See_Comment N [A utomated message] The Eosinophils) system which ge nerated this result tra nsmitted reference range : <=4.0. The reference r kehinde was not used to int erpret this result as normal/abnormal . [facility] ArlingtonTxctvnuISADGRNGMY3731-62-96 03:05:00 Test Item Value Reference Range Interpretation Comments Monocytes (test code = Monocytes) 5.3 2.0-12.0 N [facility] ArlingtonRzlfzahEXATLUSHIO0407-03-41 03:05:00 Test Item Value Reference Range Interpretation Comments Lymphocytes (test code = Lymphocytes) 35.2 20.0-40.0 N [facility] ArlingtonXkeomrqEFATDGQSML6771-76-64 03:05:00 Test Item Value Reference Range Interpretation Comments Lymphocytes # (test code = Lymphocytes 2.0 1.0-5.5 N #) [facility] ArlingtonGowpmweXZIURWHORU6032-24-71 03:05:00 Test Item Value Reference Range Interpretation Comments Segs-Bands # (test code = Segs-Bands #) 3.3 1.5-8.1 N [facility] ArlingtonDeyvetaHMSXOBTWDF6861-80-26 03:05:00 Test Item Value Reference Range Interpretation Comments Eosinophils # (test code 0.1 See_Comment N [A utomated message] The = Eosinophils #) system whic h generated this result tra nsmitted reference range : <=0.5. The reference r kehinde was not used to int erpret this result as normal/abnormal . [facility] ArlingtonVwoqlmlEFKVIBWUEZ0772-75-16 03:05:00 Test Item Value Reference Range Interpretation Comments Monocytes # (test code 0.3 See_Comment N [Aut omated message] The = Monocytes #) system which generated this result tra nsmitted reference range : <=0.8. The reference r kehinde was not used to int erpret this result as normal/abnormal . [facility] ArlingtonDvhkugnXBQQRDDMQW5198-51-70 03:05:00 Test Item Value Reference Range Interpretation Comments Basophils # (test code 0.0 See_Comment N [Aut omated message] The = Basophils #) system which generated this result tra nsmitted reference range : <=0.2. The reference r kehinde was not used to int erpret this result as normal/abnormal . [facility]VxltonwVAQFYQGCLB6663-88-39 03:05:00 Test Item Value Reference Range Interpretation Comments UA Spec Grav (test code = UA Spec 1.010 1 N Grav) [facility]oundUoojbvnVMZNLUEDMD2827-22-31 03:05:00 Test Item Value Reference Range Interpretation Comments UA pH (test code = UA pH) 5.5 1 5.0-8.0 N [facility]oundVeprepvPEWDXADLBV4940-73-25 03:05:00 Test Item Value Reference Range Interpretation Comments UA Color (test code = Yellow *NA*(11/28/2011 UA Color) 22:05:00) [facility]oundGmjorggNQGPRNXUCZ5923-06-59 03:05:00 Test Item Value Reference Range Interpretation Comments UA Turbidity (test code = Clear (11/28/2011 N UA Turbidity) 22:05:00) [facility]oundHjfaktrQCQODFQBSH3386-38-35 03:05:00 Test Item Value Reference Range Interpretation Comments UA Nitrite (test code Negative (11/28/2011 N = UA Nitrite) 22:05:00) [facility]oundYhtvbofYMNKCMTKEU1826-56-11 03:05:00 Test Item Value Reference Range Interpretation Comments UA Leuk Est (test Negative (11/28/2011 N code = UA Leuk Est) 22:05:00) [facility]oundDpkfqgfIWITAJFFAE2448-97-21 03:05:00 Test Item Value Reference Range Interpretation Comments UA Urobilinogen (test code = UA 0.2 0.1-1.0 N Urobilinogen) [facility]oundLijfzdzBCHVWENHSR0494-68-09 03:05:00 Test Item Value Reference Range Interpretation Comments UA Glucose (test code = >=1000 mg/dL A UA Glucose) *ABN*(11/28/2011 22:05:00) [facility]oundAhbgxnhKIYDIHDMIX2142-09-06 03:05:00 Test Item Value Reference Range Interpretation Comments UA Ketones (test code Negative mg/dL = UA Ketones) *NA*(11/28/2011 22:05:00) [facility]oundOkvhveoXCHPITFDUL0357-63-50 03:05:00 Test Item Value Reference Range Interpretation Comments UA Protein (test code Negative mg/dL N = UA Protein) (11/28/2011 22:05:00) [facility]oundCjbilqhOPYXGENGLF4867-66-68 03:05:00 Test Item Value Reference Range Interpretation Comments UA Blood (test code = Negative (11/28/2011 N UA Blood) 22:05:00) [facility]oundKvfyssaFBGEBEMOGC6688-94-08 03:05:00 Test Item Value Reference Range Interpretation Comments UA Bili (test code = Negative *NA*(11/28/2011 UA Bili) 22:05:00) [facility]oundUmgflboJYXUTPXDYQ3913-70-93 03:05:00 Test Item Value Reference Range Interpretation Comments UA Sq Epi (test code = Rare /LPF (11/28/2011 N UA Sq Epi) 22:05:00) [facility]HqrposdRFGHYXZIBV0703-39-02 03:05:00 Test Item Value Reference Range Interpretation Comments UA Bacteria (test code Occasional /HPF N = UA Bacteria) (11/28/2011 22:05:00) [facility] RockVzbypqeTYVTSSFMQE3787-39-57 03:05:00 Test Item Value Reference Range Interpretation Comments UA RBC (test 0-2 /HPF See_Comment N [Automated mes anabell] code = UA RBC) (11/28/2011 The system ich 22:05:00) generated this result transmitted ref erence range: <=2. The reference range was not used to int erpret this result as normal/abnormal . [facility]GbyfptdTSKSWOHQTU0578-07-40 03:05:00 Test Item Value Reference Range Interpretation Comments UA WBC (test code = UA 0-2 /HPF (11/28/2011 N WBC) 22:05:00) [facility]entonIsluxiiIAJLOTLZZI0127-74-09 03:05:00 Test Item Value Reference Range Interpretation Comments Micro? (test code = Performed (11/28/2011 N Micro?) 22:05:00) [facility] GLUCOSE VDONFLD0146-09-60 02:45:00 Test Item Value Reference Range Interpretation Comments Gluc POC Lifscn (test code = Gluc POC no gt 70-99 A Lifscn) [facility] GLUCOSE DVVOKSJ3070-67-59 02:45:00 Test Item Value Reference Range Interpretation Comments Comment1 (test code = Comment1) Bhargavi RN/MD [facility] GLUCOSE MIFHBJY2869-34-42 06:10:00 Test Item Value Reference Range Interpretation Comments Gluc POC Lifscn (test code = Gluc POC 224 70-99 H Lifscn) [facility] GLUCOSE WSRGDVC0691-00-28 05:04:00 Test Item Value Reference Range Interpretation Comments Gluc POC Lifscn (test code = Gluc POC 94 70-99 N Lifscn) [facility]NzgtsksWZBTHGQEH9580-09-72 03:06:00 Test Item Value Reference Range Interpretation Comments pO2 Korey (test code = pO2 Korey) 72 20-49 H [facility] CenterOsgdwvxWYBKOZTDA2109-19-76 03:06:00 Test Item Value Reference Range Interpretation Comments pCO2 Korey (test code = pCO2 Korey) 40 38-52 N [facility] CenterGhwdbopKMFOREAKY3561-43-76 03:06:00 Test Item Value Reference Range Interpretation Comments pH Korey (test code = pH Korey) 7.42 7.28-7.42 N [facility] CenterCxxhvedPPMYNWQBX4276-22-10 03:06:00 Test Item Value Reference Range Interpretation Comments Flow Korey (test code = Flow Korey) 0.0 [facility] CenterIcvqtxcOERVYSNEU9372-23-69 03:06:00 Test Item Value Reference Range Interpretation Comments Mode Korey (test code = Rm Air (10/24/2011 N Mode Korey) 22:06:00) [facility] CenterMlghggwMCZSMOXAH1004-40-42 03:06:00 Test Item Value Reference Range Interpretation Comments O2 Sat Korey (test code = O2 Sat Korey) 95.0 40.0-70.0 H [facility] CenterQufexdrMQLZQTWUD9925-62-34 03:06:00 Test Item Value Reference Range Interpretation Comments BE Korey (test code = 1 See_Comment N [Automa saran message] The BE Korey) system which ge nerated this result transmit saran reference range : <=2. The reference range was not used to interpr et this result as justina l/abnormal. [facility] CenterDznhykhHKLDRLYFY6553-71-58 03:06:00 Test Item Value Reference Range Interpretation Comments HCO3 Korey (test code = HCO3 Korey) 26 22-26 N [facility] CenterJcgmwufNOGBJBBJQ8945-79-65 03:05:00 Test Item Value Reference Range Interpretation Comments Lipase Lvl (test code = Lipase Lvl) 181 73-393 N [facility] CenterWobmtvrAFICAMWFO8122-54-99 03:05:00 Test Item Value Reference Range Interpretation Comments Amylase Lvl (test code = Amylase Lvl) 153 25-115 H [facility] CenterEbaxmcfIDWQGCDYQ1553-85-79 03:05:00 Test Item Value Reference Range Interpretation Comments BUN (test code = BUN) 19 7-22 N [facility] CenterCxcmioaKVGUWKTGN2545-08-36 03:05:00 Test Item Value Reference Range Interpretation Comments Calcium Lvl (test code = Calcium Lvl) 8.4 8.5-10.5 L [facility] CenterIsvcilnVETRYDSQH8326-66-95 03:05:00 Test Item Value Reference Range Interpretation Comments Glucose Lvl (test code = Glucose Lvl) 431 70-99 A [facility] CenterIedqjmaMFHWRQIOG4063-00-71 03:05:00 Test Item Value Reference Range Interpretation Comments Chloride Lvl (test code = Chloride Lvl) 100 95-109 N [facility] CenterTpajjztRBNQAVLUC1590-46-46 03:05:00 Test Item Value Reference Range Interpretation Comments Albumin Lvl (test code = Albumin Lvl) 3.8 3.5-5.0 N [facility] CenterTalbrtgQOVBWWBFK2508-22-82 03:05:00 Test Item Value Reference Range Interpretation Comments Globulin (test code = Globulin) 3.7 2.0-4.0 N [facility] CenterZvaftqvQTSCODGBG9847-89-17 03:05:00 Test Item Value Reference Range Interpretation Comments CO2 (test code = CO2) 27 24-32 N [facility] CenterNvnhkrkQOVRVZUFZ3040-63-03 03:05:00 Test Item Value Reference Range Interpretation Comments AGAP (test code = AGAP) 12.2 10.0-20.0 N [facility] CenterZdxjkkePSFUDJKPS7578-38-70 03:05:00 Test Item Value Reference Range Interpretation Comments Potassium Lvl (test code = Potassium 4.2 3.5-5.1 N Lvl) [facility] CenterQanmrptRDLPUQNKG1471-49-60 03:05:00 Test Item Value Reference Range Interpretation Comments Creatinine Lvl (test code = Creatinine 0.8 0.5-1.4 N Lvl) [facility] CenterXpnrsuvCSBIKNQWZ2069-79-11 03:05:00 Test Item Value Reference Range Interpretation Comments Sodium Lvl (test code = Sodium Lvl) 135 135-145 N [facility] CenterNsawhbzRZXYSPVZR1585-62-03 03:05:00 Test Item Value Reference Range Interpretation Comments B/C Ratio (test code = B/C Ratio) 24 6-25 N [facility] CenterWhvprywWDCNXOCMF2833-63-79 03:05:00 Test Item Value Reference Range Interpretation Comments Total Protein (test code = Total 7.5 6.4-8.4 N Protein) [facility] CenterIruvpedAQKXVUPIO6346-24-71 03:05:00 Test Item Value Reference Range Interpretation Comments AST (test code = AST) 10 See_Comment N [Auto mated message] The system which ge nerated this result transmit saran reference range : <=37. The reference range was not used to interpr et this result as justina l/abnormal. [facility] CenterRqvihotPMCHBPIIM8832-81-03 03:05:00 Test Item Value Reference Range Interpretation Comments Alk Phos (test code = Alk Phos) 100 39-136 N [facility] CenterWfuwnmeYZEHHMVCT5329-45-76 03:05:00 Test Item Value Reference Range Interpretation Comments Bili Total (test code = Bili Total) 0.3 0.2-1.3 N [facility] CenterXjgsuxlIAZNHQIHM5532-01-07 03:05:00 Test Item Value Reference Range Interpretation Comments A/G Ratio (test code = A/G Ratio) 1.0 0.7-1.6 N [facility] CenterMfjrapqWARQFULSH8614-76-73 03:05:00 Test Item Value Reference Range Interpretation Comments ALT (test code = ALT) 17 See_Comment N [Auto mated message] The system which ge nerated this result transmit saran reference range : <=65. The reference range was not used to interpr et this result as justina l/abnormal. [facility] CenterOrakncdEPPHLKRNJ4283-97-35 03:05:00 Test Item Value Reference Range Interpretation Comments Ketone Quantitative (test code = Ketone 0.22 N Quantitative) [facility] ArlingtonGqvtueaHYYWJEVGGQ7391-27-98 03:05:00 Test Item Value Reference Range Interpretation Comments Eosinophils # (test code 0.1 See_Comment N [A utomated message] The = Eosinophils #) system whic h generated this result tra nsmitted reference range : <=0.5. The reference r kehinde was not used to int erpret this result as normal/abnormal . [facility] ArlingtonPtfxastHELPWYYFDR5849-62-61 03:05:00 Test Item Value Reference Range Interpretation Comments Lymphocytes # (test code = Lymphocytes 2.0 1.0-5.5 N #) [facility] ArlingtonGsiwegtRATQPUGSFE8478-35-44 03:05:00 Test Item Value Reference Range Interpretation Comments Basophils # (test code 0.0 See_Comment N [Aut omated message] The = Basophils #) system which generated this result tra nsmitted reference range : <=0.2. The reference r kehinde was not used to int erpret this result as normal/abnormal . [facility] ArlingtonRdjwjqzNKPMYKCYSN6794-02-06 03:05:00 Test Item Value Reference Range Interpretation Comments Monocytes # (test code 0.4 See_Comment N [Aut omated message] The = Monocytes #) system which generated this result tra nsmitted reference range : <=0.8. The reference r kehinde was not used to int erpret this result as normal/abnormal . [facility] ArlingtonZqijhglNASHMVCSKU6641-15-32 03:05:00 Test Item Value Reference Range Interpretation Comments Lymphocytes (test code = Lymphocytes) 29.4 20.0-40.0 N [facility] ArlingtonUvthwkxSONJERZOEZ5322-27-31 03:05:00 Test Item Value Reference Range Interpretation Comments Segs-Bands # (test code = Segs-Bands #) 4.3 1.5-8.1 N [facility] ArlingtonJjmagwtSYZIMVKRPL9120-61-71 03:05:00 Test Item Value Reference Range Interpretation Comments Monocytes (test code = Monocytes) 5.7 2.0-12.0 N [facility] ArlingtonEqktzdaYSVSKLRTMD7778-78-44 03:05:00 Test Item Value Reference Range Interpretation Comments Basophils (test code = 0.4 See_Comment N [Aut omated message] The Basophils) system which ge nerated this result tra nsmitted reference range : <=1.0. The reference r kehinde was not used to int erpret this result as normal/abnormal . [facility] ArlingtonJnouykxZELWVDKRET3486-52-81 03:05:00 Test Item Value Reference Range Interpretation Comments Eosinophils (test code = 1.2 See_Comment N [A utomated message] The Eosinophils) system which ge nerated this result tra nsmitted reference range : <=4.0. The reference r kehinde was not used to int erpret this result as normal/abnormal . [facility] ArlingtonNbpuhtsRCRIMRHSPS5528-72-96 03:05:00 Test Item Value Reference Range Interpretation Comments Segs (test code = Segs) 63.3 45.0-75.0 N [facility] ArlingtonPjklosgMEBSNJNDBC7841-83-02 03:05:00 Test Item Value Reference Range Interpretation Comments RDW (test code = RDW) 14.0 11.5-14.5 N [facility] ArlingtonAiztkonWZVMYHLVGF5325-79-61 03:05:00 Test Item Value Reference Range Interpretation Comments Platelet (test code = Platelet) 271 133-450 N [facility] ArlingtonWzgndtaCYPMJGKPTJ3426-59-85 03:05:00 Test Item Value Reference Range Interpretation Comments MPV (test code = MPV) 8.0 7.4-10.4 N [facility] ArlingtonHqlcgftZHLKYRKGME1186-61-92 03:05:00 Test Item Value Reference Range Interpretation Comments Hgb (test code = Hgb) 13.3 12.0-16.0 N [facility] ArlingtonOlbhbweAOHGBYNXND0775-41-48 03:05:00 Test Item Value Reference Range Interpretation Comments Hct (test code = Hct) 39.4 36.0-48.0 N [facility] ArlingtonGvqxuafRKUFVDLBXX2187-81-68 03:05:00 Test Item Value Reference Range Interpretation Comments MCV (test code = MCV) 86.2 81.0-99.0 N [facility] ArlingtonVpjdqgyAPKCPUXTRQ0572-21-74 03:05:00 Test Item Value Reference Range Interpretation Comments MCH (test code = MCH) 29.1 pg 27.0-31.0 N [facility] [facility]AevsatpDABCIPFYWW2065-87-88 03:05:00 Test Item Value Reference Range Interpretation Comments MCHC (test code = MCHC) 33.8 32.0-36.0 N [facility]PmvdvexRPMSIWSQAX6264-61-22 03:05:00 Test Item Value Reference Range Interpretation Comments WBC (test code = WBC) 6.9 3.7-10.4 N [facility] ArlingtonMxamwooIMXPTWMWQM8162-59-29 03:05:00 Test Item Value Reference Range Interpretation Comments RBC (test code = RBC) 4.57 4.20-5.40 N [facility]oundGynloihKWTJNVWQBP6817-98-61 03:05:00 Test Item Value Reference Range Interpretation Comments UA Nitrite (test code Positive A = UA Nitrite) *ABN*(10/24/2011 22:05:00) [facility]oundKvtehpiSQIBZGXTYF6619-59-00 03:05:00 Test Item Value Reference Range Interpretation Comments UA Leuk Est (test Negative (10/24/2011 N code = UA Leuk Est) 22:05:00) [facility]oundBrfkarxSTQNZPZAGF6488-81-98 03:05:00 Test Item Value Reference Range Interpretation Comments UA Protein (test code Negative (10/24/2011 N = UA Protein) 22:05:00) [facility]oundChwsirkYWQBFHNMXO5894-49-10 03:05:00 Test Item Value Reference Range Interpretation Comments UA Glucose (test code = >=1000 mg/dL A UA Glucose) *ABN*(10/24/2011 22:05:00) [facility]EqtgsxnVENGZUEDNX4531-31-76 03:05:00 Test Item Value Reference Range Interpretation Comments UA pH (test code = UA pH) 6.0 1 5.0-8.0 N [facility]entonVrhgdudIVYFCVNQTA8098-95-23 03:05:00 Test Item Value Reference Range Interpretation Comments UA Spec Grav (test code = UA Spec 1.015 1 N Grav) [facility] DentonOshhrwaKTZKFETYWV1099-04-70 03:05:00 Test Item Value Reference Range Interpretation Comments UA Color (test code = Yellow *NA*(10/24/2011 UA Color) 22:05:00) [facility] DentonZtsoulxXQGCXWILOS8393-72-55 03:05:00 Test Item Value Reference Range Interpretation Comments UA Turbidity (test code = Clear (10/24/2011 N UA Turbidity) 22:05:00) [facility]oundPkrwavmUPOTZNBKOQ7155-24-58 03:05:00 Test Item Value Reference Range Interpretation Comments UA Urobilinogen (test code = UA 0.2 0.1-1.0 N Urobilinogen) [facility]oundFdnaakkNUCOELWYVB9678-88-47 03:05:00 Test Item Value Reference Range Interpretation Comments UA Ketones (test code Negative = UA Ketones) *NA*(10/24/2011 22:05:00) [facility]oundHwqyyamHGVJPCACRT4755-13-98 03:05:00 Test Item Value Reference Range Interpretation Comments UA Blood (test code = Negative (10/24/2011 N UA Blood) 22:05:00) [facility] DentonYatwnruJJCFWFOCCB0717-60-84 03:05:00 Test Item Value Reference Range Interpretation Comments UA Bili (test code = Negative *NA*(10/24/2011 UA Bili) 22:05:00) [facility] DentonHpiiahpNARMFEPTVO7856-31-55 03:05:00 Test Item Value Reference Range Interpretation Comments UA Mucus (test code = Rare /LPF (10/24/2011 N UA Mucus) 22:05:00) [facility] DentonKvdtlxgPPDYAEUDRX4554-52-66 03:05:00 Test Item Value Reference Range Interpretation Comments UA Bacteria (test code Moderate /HPF N = UA Bacteria) (10/24/2011 22:05:00) [facility] DentonFkxipclGBTOUJMQOZ5399-06-41 03:05:00 Test Item Value Reference Range Interpretation Comments UA RBC (test 0-2 /HPF See_Comment N [Automated mes anabell] code = UA RBC) (10/24/2011 The system ich 22:05:00) generated this result transmitted ref erence range: <=2. The reference range was not used to int erpret this result as normal/abnormal . [facility] CenterKtgzwrvCJGACYACBW6949-40-22 03:05:00 Test Item Value Reference Range Interpretation Comments Micro? (test code = Performed (10/24/2011 N Micro?) 22:05:00) [facility] CenterFzfkoohPYQBJMNUPE5357-02-74 03:05:00 Test Item Value Reference Range Interpretation Comments UA WBC (test code = UA 6-10 /HPF A WBC) *ABN*(10/24/2011 22:05:00) [facility] RockRrghhfrFCDSAIUHVN6975-10-62 03:05:00 Test Item Value Reference Range Interpretation Comments UA Sq Epi (test code = Rare /LPF (10/24/2011 N UA Sq Epi) 22:05:00) [facility] GLUCOSE HGJEQUA8333-24-01 02:43:00 Test Item Value Reference Range Interpretation Comments Comment1 (test code = Comment1) Not[facility] RN/ [facility] NXNGRWH3279-32-50 02:43:00 Test Item Value Reference Range Interpretation Comments Gluc POC Lifscn (test code = Gluc POC no gt 70-99 A Lifscn) [facility] GLUCOSE FHCGADR5466-22-61 08:15:00 Test Item Value Reference Range Interpretation Comments Gluc POC Lifscn (test code = Gluc POC 273 65-110 H Lifscn) [facility] GLUCOSE VEHTIQQ5313-93-05 07:07:00 Test Item Value Reference Range Interpretation Comments Comment1 (test code = Comment1) [facility]/ [facility] CenterannBEDSIDE GLUCOSE UZREZUK5196-34-64 07:07:00 Test Item Value Reference Range Interpretation Comments Gluc POC Lifscn (test code = Gluc POC no gt 65-110 A Lifscn) [facility] CenterLjuyrjqJFSRLTCDX2131-69-55 05:10:00 Test Item Value Reference Range Interpretation Comments Amylase Lvl (test code = Amylase Lvl) 121 25-115 H [facility] CenterOgkgijoCWLOZFVJY2506-41-41 05:10:00 Test Item Value Reference Range Interpretation Comments Creatinine Lvl (test code = Creatinine 0.8 0.5-1.4 N Lvl) [facility] CenterYczowjxJINOENHCZ5593-62-91 05:10:00 Test Item Value Reference Range Interpretation Comments CO2 (test code = CO2) 26 24-32 N [facility] CenterMwdnznyHBXBQZBVK7764-50-73 05:10:00 Test Item Value Reference Range Interpretation Comments Chloride Lvl (test code = Chloride Lvl) 96 95-109 N [facility] CenterCramhboYXZXDFIXM6046-83-66 05:10:00 Test Item Value Reference Range Interpretation Comments Potassium Lvl (test code = Potassium 3.9 3.5-5.1 N Lvl) [facility] CenterBklfubgMKKVCGGBG1916-58-86 05:10:00 Test Item Value Reference Range Interpretation Comments AGAP (test code = AGAP) 12.9 10.0-20.0 N [facility] CenterDufoyfjDQYKIPATM7923-50-48 05:10:00 Test Item Value Reference Range Interpretation Comments Albumin Lvl (test code = Albumin Lvl) 4.0 3.5-5.0 N [facility] CenterZfrzfgnLKWPNVROI5945-07-99 05:10:00 Test Item Value Reference Range Interpretation Comments Total Protein (test code = Total 7.8 6.4-8.4 N Protein) [facility] CenterDayabsjZLCZPWAOW2546-56-58 05:10:00 Test Item Value Reference Range Interpretation Comments B/C Ratio (test code = B/C Ratio) 15 6-25 N [facility] CenterFmtzoahGQHNHIUTV2769-32-70 05:10:00 Test Item Value Reference Range Interpretation Comments Sodium Lvl (test code = Sodium Lvl) 131 135-145 L [facility] CenterZzyrgxmIEHVDGUPW8338-90-07 05:10:00 Test Item Value Reference Range Interpretation Comments A/G Ratio (test code = A/G Ratio) 1.1 0.7-1.6 N [facility] CenterQrqugufWTYCQFJKG7711-22-81 05:10:00 Test Item Value Reference Range Interpretation Comments Globulin (test code = Globulin) 3.8 2.0-4.0 N [facility] CenterSmiozfoWXIJCVGHA2031-57-21 05:10:00 Test Item Value Reference Range Interpretation Comments Calcium Lvl (test code = Calcium Lvl) 8.6 8.5-10.5 N [facility] CenterSteayzbQWJHBLDZN1893-25-00 05:10:00 Test Item Value Reference Range Interpretation Comments AST (test code = AST) 11 See_Comment N [Auto mated message] The system which ge nerated this result transmit saran reference range : <=37. The reference range was not used to interpr et this result as justina l/abnormal. [facility] CenterGmqwraiRESAKRORV7651-38-34 05:10:00 Test Item Value Reference Range Interpretation Comments Bili Total (test code = Bili Total) 0.4 0.2-1.3 N [facility] CenterYqpdcxyTQGIANKSQ5191-70-32 05:10:00 Test Item Value Reference Range Interpretation Comments Alk Phos (test code = Alk Phos) 113 39-136 N [facility] CenterWaonlwgJZKFZYHOM6744-68-98 05:10:00 Test Item Value Reference Range Interpretation Comments ALT (test code = ALT) 15 See_Comment N [Auto mated message] The system which ge nerated this result transmit saran reference range : <=65. The reference range was not used to interpr et this result as justina l/abnormal. [facility] CenterIuhqqzfERUJRZFAX6279-19-82 05:10:00 Test Item Value Reference Range Interpretation Comments Glucose Lvl (test code = Glucose Lvl) 544 A [facility] CenterYuzcgsjRIBZNWYTS3953-85-90 05:10:00 Test Item Value Reference Range Interpretation Comments BUN (test code = BUN) 12 7-22 N [facility] CenterDnighqqAOIXACUPA8742-61-53 05:10:00 Test Item Value Reference Range Interpretation Comments Lipase Lvl (test code = Lipase Lvl) 198 73-393 N [facility] CenterPughyefYRVRNBDOM5604-31-04 05:10:00 Test Item Value Reference Range Interpretation Comments Ketone Quantitative (test code = Ketone 0.36 H Quantitative) [facility]BzbbqzyMLVSSTWAFC0653-83-30 05:10:00 Test Item Value Reference Range Interpretation Comments Platelet (test code = Platelet) 271 133-450 N [facility] ArlingtonPvnwbaePGCABPDQDX3644-28-21 05:10:00 Test Item Value Reference Range Interpretation Comments MCHC (test code = MCHC) 34.3 32.0-36.0 N [facility] ArlingtonHyjtjeeHYQZNXXBHH2130-84-43 05:10:00 Test Item Value Reference Range Interpretation Comments MPV (test code = MPV) 7.9 7.4-10.4 N [facility] ArlingtonMkpnxweAXWQLHPSAT4104-28-41 05:10:00 Test Item Value Reference Range Interpretation Comments Hgb (test code = Hgb) 13.0 12.0-16.0 N [facility] ArlingtonXqcxifpJDHZQUZIZF4251-09-46 05:10:00 Test Item Value Reference Range Interpretation Comments MCH (test code = MCH) 29.5 pg 27.0-31.0 N [facility] ArlingtonZixsitqXQQMZHYVCD6968-80-82 05:10:00 Test Item Value Reference Range Interpretation Comments Hct (test code = Hct) 38.1 36.0-48.0 N [facility] ArlingtonVwreanhEPZUPRBTCB0327-13-58 05:10:00 Test Item Value Reference Range Interpretation Comments MCV (test code = MCV) 86.0 81.0-99.0 N [facility] ArlingtonXjoystwOYIUHQYYKK4422-96-89 05:10:00 Test Item Value Reference Range Interpretation Comments RBC (test code = RBC) 4.43 4.20-5.40 N [facility] ArlingtonBovwklzWFAHDOAEYK2017-47-24 05:10:00 Test Item Value Reference Range Interpretation Comments WBC (test code = WBC) 5.9 3.7-10.4 N [facility] ArlingtonApzmganAWSMURXQXZ9010-08-82 05:10:00 Test Item Value Reference Range Interpretation Comments RDW (test code = RDW) 14.0 11.5-14.5 N [facility] ArlingtonHbzzzcqKJKRYGBLDM1353-15-61 05:10:00 Test Item Value Reference Range Interpretation Comments Basophils # (test code 0.0 See_Comment N [Aut omated message] The = Basophils #) system which generated this result tra nsmitted reference range : <=0.2. The reference r kehinde was not used to int erpret this result as normal/abnormal . [facility] ArlingtonGbtozmiVPBYEWZGGG3727-81-84 05:10:00 Test Item Value Reference Range Interpretation Comments Lymphocytes # (test code = Lymphocytes 1.7 1.0-5.5 N #) [facility] ArlingtonMsxitldVKNPXCCDGX2148-51-17 05:10:00 Test Item Value Reference Range Interpretation Comments Monocytes # (test code 0.3 See_Comment N [Aut omated message] The = Monocytes #) system which generated this result tra nsmitted reference range : <=0.8. The reference r kehinde was not used to int erpret this result as normal/abnormal . [facility] ArlingtonVemgxatPIZWATFVVV4254-65-74 05:10:00 Test Item Value Reference Range Interpretation Comments Basophils (test code = 0.6 See_Comment N [Aut omated message] The Basophils) system which ge nerated this result tra nsmitted reference range : <=1.0. The reference r kehinde was not used to int erpret this result as normal/abnormal . [facility] ArlingtonCabanrbZAECNQUZGI1581-95-63 05:10:00 Test Item Value Reference Range Interpretation Comments Segs-Bands # (test code = Segs-Bands #) 3.8 1.5-8.1 N [facility] ArlingtonXrgjpcsDAIHAHTLVS5538-50-94 05:10:00 Test Item Value Reference Range Interpretation Comments Eosinophils # (test code 0.1 See_Comment N [A utomated message] The = Eosinophils #) system [facility] h generated this result tra nsmitted reference range : <=0.5. The reference r kehinde was not used to int erpret this result as normal/abnormal . [facility] ArlingtonVllvfxiAPUKLCCYBF4785-60-14 05:10:00 Test Item Value Reference Range Interpretation Comments Monocytes (test code = Monocytes) 4.7 2.0-12.0 N [facility] ArlingtonGjtlvjiTBATFQLOAS8251-15-19 05:10:00 Test Item Value Reference Range Interpretation Comments Lymphocytes (test code = Lymphocytes) 28.9 20.0-40.0 N [facility] ArlingtonSsbpcyeOCDNCKSNDM5646-70-43 05:10:00 Test Item Value Reference Range Interpretation Comments Eosinophils (test code = 2.5 See_Comment N [A utomated message] The Eosinophils) system which ge nerated this result tra nsmitted reference range : <=4.0. The reference r kehinde was not used to int erpret this result as normal/abnormal . [facility] ArlingtonBcxwxlvOWCLRZCSHB0283-22-16 05:10:00 Test Item Value Reference Range Interpretation Comments Segs (test code = Segs) 63.3 45.0-75.0 N [facility] RockYztptwsNMIHSFCAVT2042-77-67 05:10:00 Test Item Value Reference Range Interpretation Comments UA RBC (test 0-2 /HPF See_Comment N [Automated mes anabell] code = UA RBC) (05/22/2011 The system [facility] 23:10:00) generated this result transmitted ref erence range: <=2. The reference range was not used to int erpret this result as normal/abnormal . [facility] DentonWwolakyWBCIAHSCCD4557-81-66 05:10:00 Test Item Value Reference Range Interpretation Comments UA Bacteria (test code Occasional /HPF N = UA Bacteria) (05/22/2011 23:10:00) [facility] DentonUuqghfrVJDCUZDOXZ3130-61-43 05:10:00 Test Item Value Reference Range Interpretation Comments UA Leuk Est (test Negative (05/22/2011 N code = UA Leuk Est) 23:10:00) [facility] DentonCengdewRFMKRHKELZ3617-62-79 05:10:00 Test Item Value Reference Range Interpretation Comments UA Ketones (test code Negative = UA Ketones) *NA*(05/22/2011 23:10:00) [facility] DentonTgeczogDYTJTVPRCT1571-94-34 05:10:00 Test Item Value Reference Range Interpretation Comments UA Glucose (test code = >=1000 mg/dL A UA Glucose) *ABN*(05/22/2011 23:10:00) [facility] DentonZtwdvmfFAHJMUQSPL8552-55-43 05:10:00 Test Item Value Reference Range Interpretation Comments UA Protein (test code Negative (05/22/2011 N = UA Protein) 23:10:00) [facility] DentonKdkyhzgZNTNPNDMYY0506-24-31 05:10:00 Test Item Value Reference Range Interpretation Comments UA pH (test code = UA pH) 5.0 1 5.0-8.0 N [facility] DentonWdgdecwOXBOOIKHUW7603-03-71 05:10:00 Test Item Value Reference Range Interpretation Comments UA WBC (test code = UA 3-5 /HPF (05/22/2011 N WBC) 23:10:00) [facility] DentonQzxqxgfQBWVQPTJUD3064-99-55 05:10:00 Test Item Value Reference Range Interpretation Comments UA Sq Epi (test code = Rare /LPF (05/22/2011 N UA Sq Epi) 23:10:00) [facility] RockLhtohpzDSIFAHULRU8534-00-02 05:10:00 Test Item Value Reference Range Interpretation Comments UA Urobilinogen (test code = UA 0.2 0.1-1.0 N Urobilinogen) [facility] DentonYlaxxteRQSUTZSQCC9742-64-01 05:10:00 Test Item Value Reference Range Interpretation Comments UA Nitrite (test code Negative (05/22/2011 N = UA Nitrite) 23:10:00) [facility] RockVeykpvvYBPYLGEBLW9863-69-40 05:10:00 Test Item Value Reference Range Interpretation Comments UA Bili (test code = Negative *NA*(05/22/2011 UA Bili) 23:10:00) [facility] RockDdvqpmaUBJANWGINF5645-53-30 05:10:00 Test Item Value Reference Range Interpretation Comments UA Blood (test code = Negative (05/22/2011 N UA Blood) 23:10:00) [facility] DentonXzmtrwmATDRCQTQPT4636-52-14 05:10:00 Test Item Value Reference Range Interpretation Comments Micro? (test code = Performed (05/22/2011 N Micro?) 23:10:00) [facility] DentonMppyngnJMXICPXMZS9066-81-85 05:10:00 Test Item Value Reference Range Interpretation Comments UA Color (test code = Yellow *NA*(05/22/2011 UA Color) 23:10:00) [facility] DentonJxmwrnqZDKYYRUSZK4705-81-35 05:10:00 Test Item Value Reference Range Interpretation Comments UA Turbidity (test code = Clear (05/22/2011 N UA Turbidity) 23:10:00) [facility] RockBdsajmfUKCSIWSCHY9018-56-70 05:10:00 Test Item Value Reference Range Interpretation Comments UA Spec Grav (test *NA*(05/22/2011 code = UA Spec Grav) 23:10:00) [facility] RockJkdazatTjxaphnlrdap5855-93-89 05:10:00 Test Item Value Reference Range Interpretation Comments Culture: Urine (test code = Culture: Urine) [facility] RockFppxmymOKIZJJXFXH3029-44-26 00:16:00 Test Item Value Reference Range Interpretation Comments UA Nitrite (test code Negative (05/07/2011 N = UA Nitrite) 18:16:00) [facility] RockUmtmsuxQCTUEKBSBM0243-42-13 00:16:00 Test Item Value Reference Range Interpretation Comments UA Urobilinogen (test code = UA 0.2 0.1-1.0 N Urobilinogen) [facility] RockNbjsnngCAHMPZNDUE9226-73-70 00:16:00 Test Item Value Reference Range Interpretation Comments UA Bili (test code = Negative *NA*(05/07/2011 UA Bili) 18:16:00) [facility] RockXndxrzhGHJMINNPEZ2266-45-80 00:16:00 Test Item Value Reference Range Interpretation Comments UA Blood (test code = Large *ABN*(05/07/2011 A UA Blood) 18:16:00) [facility] DentonDrvhoszEACVHCNMJO3892-96-82 00:16:00 Test Item Value Reference Range Interpretation Comments UA RBC (test 6-10 /HPF See_Comment A [Automated mes anabell] code = UA RBC) *ABN*(05/07/2011 The syste m which 18:16:00) generated this result transmitted ref erence range: <=2. The reference range was not used to int erpret this result as normal/abnormal . [facility] DentonKtvztdlOOYZTXJQLF6870-19-91 00:16:00 Test Item Value Reference Range Interpretation Comments UA Bacteria (test code Occasional /HPF N = UA Bacteria) (05/07/2011 18:16:00) [facility]oundWuthgxuLGRKAHOKGD0913-13-15 00:16:00 Test Item Value Reference Range Interpretation Comments Micro? (test code = Performed (05/07/2011 N Micro?) 18:16:00) [facility] DentonJhkpywoTNAWLXHCFX2557-86-46 00:16:00 Test Item Value Reference Range Interpretation Comments UA Sq Epi (test code = Few /LPF (05/07/2011 N UA Sq Epi) 18:16:00) [facility] DentonZodaycyRGPBMKLMJN4537-96-71 00:16:00 Test Item Value Reference Range Interpretation Comments UA Leuk Est (test Negative (05/07/2011 N code = UA Leuk Est) 18:16:00) [facility] DentonWiaroscLASBGOFSWM0282-25-15 00:16:00 Test Item Value Reference Range Interpretation Comments UA WBC (test code = UA 21-50 /HPF A WBC) *ABN*(05/07/2011 18:16:00) [facility] DentonBrzewlyMPQBYTECYF0898-03-78 00:16:00 Test Item Value Reference Range Interpretation Comments UA Ketones (test code = Trace A UA Ketones) *ABN*(05/07/2011 18:16:00) [facility] DentonPcucxdiQUZMSQYPOW4856-26-80 00:16:00 Test Item Value Reference Range Interpretation Comments UA Glucose (test code = >=1000 mg/dL A UA Glucose) *ABN*(05/07/2011 18:16:00) [facility] DentonOwiwcziYXGMRZTXQN2877-37-83 00:16:00 Test Item Value Reference Range Interpretation Comments UA Protein (test code Negative (05/07/2011 N = UA Protein) 18:16:00) [facility] RockXkbxxivZJSBKPMIQS7786-86-27 00:16:00 Test Item Value Reference Range Interpretation Comments UA Spec Grav (test code = UA Spec 1.010 1 N Grav) [facility] DentonBmxhqmtXUBWUWLOAA2119-92-99 00:16:00 Test Item Value Reference Range Interpretation Comments UA Turbidity (test code = Clear (05/07/2011 N UA Turbidity) 18:16:00) [facility] RockMnghaaqBCYEHFGRVA0620-64-90 00:16:00 Test Item Value Reference Range Interpretation Comments UA pH (test code = UA pH) 6.0 1 5.0-8.0 N [facility] DentonAgpjxghFJOWHCDQZG7258-45-41 00:16:00 Test Item Value Reference Range Interpretation Comments UA Color (test code = Yellow *NA*(05/07/2011 UA Color) 18:16:00) [facility] KEUZBUC6138-00-03 06:51:00 Test Item Value Reference Range Interpretation Comments Gluc POC Lifscn (test code = Gluc POC 149 65-110 H Lifscn) [facility] CenterUbaobbeJDIGARJCI2296-26-24 04:20:00 Test Item Value Reference Range Interpretation Comments Ketones Qual (test Negative (04/19/2011 N code = Ketones Qual) 22:20:00) [facility] CenterOzoxcgmZKYAVGUXI0560-68-64 04:20:00 Test Item Value Reference Range Interpretation Comments Globulin (test code = Globulin) 4.1 2.0-4.0 H [facility] CenterKrmdhnlLAFZGWWVV5441-10-58 04:20:00 Test Item Value Reference Range Interpretation Comments B/C Ratio (test code = B/C Ratio) 15 6-25 N [facility] CenterQbhjxttOJJXKDYTI4686-39-86 04:20:00 Test Item Value Reference Range Interpretation Comments Calcium Lvl (test code = Calcium Lvl) 9.2 8.5-10.5 N [facility] RockRglqjtcHBXTLAQBK5565-76-50 04:20:00 Test Item Value Reference Range Interpretation Comments Chloride Lvl (test code = Chloride Lvl) 96 95-109 N [facility] CenterHpwydojWDHDODZUR8016-87-82 04:20:00 Test Item Value Reference Range Interpretation Comments AGAP (test code = AGAP) 16.2 10.0-20.0 N [facility] CenterHcmykdbSXXMSDQNI4251-55-97 04:20:00 Test Item Value Reference Range Interpretation Comments CO2 (test code = CO2) 24 24-32 N [facility] CenterTojiufrTDUMIQMJZ4787-71-70 04:20:00 Test Item Value Reference Range Interpretation Comments Albumin Lvl (test code = Albumin Lvl) 4.0 3.5-5.0 N [facility] CenterYplcpthRZIAVVDEZ9318-57-40 04:20:00 Test Item Value Reference Range Interpretation Comments Total Protein (test code = Total 8.1 6.4-8.4 N Protein) [facility] CenterNudycieXEPKFWWFW1767-84-77 04:20:00 Test Item Value Reference Range Interpretation Comments Bili Total (test code = Bili Total) 0.4 0.2-1.3 N [facility] CenterAwwhzlzNYTOTUEFW6642-41-53 04:20:00 Test Item Value Reference Range Interpretation Comments Alk Phos (test code = Alk Phos) 92 39-136 N [facility] CenterMztxjweTISZIHEZJ0930-10-65 04:20:00 Test Item Value Reference Range Interpretation Comments AST (test code = AST) 4 See_Comment N [Auto mated message] The system which ge nerated this result transmit saran reference range : <=37. The reference range was not used to interpr et this result as justina l/abnormal. [facility] CenterRtyexfqTCORCASDV8480-00-27 04:20:00 Test Item Value Reference Range Interpretation Comments ALT (test code = ALT) 14 See_Comment N [Auto mated message] The system which ge nerated this result transmit saran reference range : <=65. The reference range was not used to interpr et this result as justina l/abnormal. [facility] CenterHrtlwweXZQPODDLV6795-61-83 04:20:00 Test Item Value Reference Range Interpretation Comments A/G Ratio (test code = A/G Ratio) 1.0 0.7-1.6 N [facility] CenterQawxcjhKZWCSWOWQ5138-79-22 04:20:00 Test Item Value Reference Range Interpretation Comments Glucose Lvl (test code = Glucose Lvl) 499 A [facility] CenterAbnfzyoUPUAAFIRV1312-58-35 04:20:00 Test Item Value Reference Range Interpretation Comments Creatinine Lvl (test code = Creatinine 0.8 0.5-1.4 N Lvl) [facility] CenterHumjpozLGKCUGIGC8327-76-08 04:20:00 Test Item Value Reference Range Interpretation Comments BUN (test code = BUN) 12 7-22 N [facility] CenterOedotjdKTYREJGML2267-61-80 04:20:00 Test Item Value Reference Range Interpretation Comments Potassium Lvl (test code = Potassium 4.2 3.5-5.1 N Lvl) [facility] CenterFzhrowgTZKFFAFKU7441-04-59 04:20:00 Test Item Value Reference Range Interpretation Comments Sodium Lvl (test code = Sodium Lvl) 132 135-145 L [facility] CenterGrkynxeNGXEBNIFA9726-56-96 04:20:00 Test Item Value Reference Range Interpretation Comments Lipase Lvl (test code = Lipase Lvl) 168 73-393 N [facility] CenterDhgirfoBOZTFUSOV3227-58-47 04:20:00 Test Item Value Reference Range Interpretation Comments Amylase Lvl (test code = Amylase Lvl) 70 25-115 N [facility] ArlingtonOpkrcldCULAMYBFYB4472-77-71 04:20:00 Test Item Value Reference Range Interpretation Comments MPV (test code = MPV) 7.9 7.4-10.4 N [facility] ArlingtonRkfcfckCDGNATFVNY9489-00-93 04:20:00 Test Item Value Reference Range Interpretation Comments Platelet (test code = Platelet) 266 133-450 N [facility] ArlingtonEqywrxxRBAOIPRLQF4996-19-12 04:20:00 Test Item Value Reference Range Interpretation Comments RBC (test code = RBC) 4.54 4.20-5.40 N [facility] ArlingtonGewbmcjKUEGUUNDWG4221-29-86 04:20:00 Test Item Value Reference Range Interpretation Comments Hgb (test code = Hgb) 13.3 12.0-16.0 N [facility] ArlingtonRunenalFHURVTEBUO8669-52-14 04:20:00 Test Item Value Reference Range Interpretation Comments MCH (test code = MCH) 29.3 pg 27.0-31.0 N [facility] ArlingtonSntdsuqQIHJAQNYKH3770-54-71 04:20:00 Test Item Value Reference Range Interpretation Comments MCHC (test code = MCHC) 33.9 32.0-36.0 N [facility] ArlingtonUlfgbldGDCNFSVALG8393-44-45 04:20:00 Test Item Value Reference Range Interpretation Comments RDW (test code = RDW) 14.0 11.5-14.5 N [facility] ArlingtonNhujigaSHSLYAEZEH5699-04-91 04:20:00 Test Item Value Reference Range Interpretation Comments Hct (test code = Hct) 39.3 36.0-48.0 N [facility] ArlingtonCianmypSMBYZAHBGD1891-39-47 04:20:00 Test Item Value Reference Range Interpretation Comments MCV (test code = MCV) 86.5 81.0-99.0 N [facility] ArlingtonDqbxfytRZEXTVMTBY1472-01-58 04:20:00 Test Item Value Reference Range Interpretation Comments WBC (test code = WBC) 8.6 3.7-10.4 N [facility] ArlingtonFztpvbtWOIVCSAOTI9122-13-72 04:20:00 Test Item Value Reference Range Interpretation Comments Basophils # (test code 0.1 See_Comment N [Aut omated message] The = Basophils #) system which generated this result tra nsmitted reference range : <=0.2. The reference r kehinde was not used to int erpret this result as normal/abnormal . [facility] ArlingtonUrwfnyzELPUDBBPTX7805-38-40 04:20:00 Test Item Value Reference Range Interpretation Comments Eosinophils # (test code 0.1 See_Comment N [A utomated message] The = Eosinophils #) system whic h generated this result tra nsmitted reference range : <=0.5. The reference r kehinde was not used to int erpret this result as normal/abnormal . [facility] ArlingtonByndbqmQGHVDVTFGJ3197-63-62 04:20:00 Test Item Value Reference Range Interpretation Comments Eosinophils (test code = 0.9 See_Comment N [A utomated message] The Eosinophils) system which ge nerated this result tra nsmitted reference range : <=4.0. The reference r kehinde was not used to int erpret this result as normal/abnormal . [facility] ArlingtonIwjyhtaDHVPODFIWV0387-36-35 04:20:00 Test Item Value Reference Range Interpretation Comments Lymphocytes (test code = Lymphocytes) 19.9 20.0-40.0 L [facility] ArlingtonMgmwylgXRWJLBBIMQ3144-85-75 04:20:00 Test Item Value Reference Range Interpretation Comments Monocytes (test code = Monocytes) 5.4 2.0-12.0 N [facility] ArlingtonOlmyhorLCXNYGJPSF6008-75-49 04:20:00 Test Item Value Reference Range Interpretation Comments Segs (test code = Segs) 73.1 45.0-75.0 N [facility] ArlingtonPrzosclASYPOUEDLZ9511-55-70 04:20:00 Test Item Value Reference Range Interpretation Comments Lymphocytes # (test code = Lymphocytes 1.7 1.0-5.5 N #) [facility] ArlingtonNmbumjpPZFOIQBEJI9013-91-83 04:20:00 Test Item Value Reference Range Interpretation Comments Monocytes # (test code 0.5 See_Comment N [Aut omated message] The = Monocytes #) system which generated this result tra nsmitted reference range : <=0.8. The reference r kehinde was not used to int erpret this result as normal/abnormal . [facility] ArlingtonVvmncmcVLQHFRJRRN5819-42-92 04:20:00 Test Item Value Reference Range Interpretation Comments Basophils (test code = 0.7 See_Comment N [Aut omated message] The Basophils) system which ge nerated this result tra nsmitted reference range : <=1.0. The reference r kehinde was not used to int erpret this result as normal/abnormal . [facility] ArlingtonCbupaflAUGBEHMBVC6319-66-60 04:20:00 Test Item Value Reference Range Interpretation Comments Segs-Bands # (test code = Segs-Bands #) 6.3 1.5-8.1 N [facility]SmfnhzoXNXGOXUXEU5280-96-96 02:29:00 Test Item Value Reference Range Interpretation Comments UA Blood (test code = Negative (04/19/2011 N UA Blood) 20:29:00) [facility]oundJjxkkmvHXVBBAECPH2492-09-34 02:29:00 Test Item Value Reference Range Interpretation Comments UA Protein (test code Negative (04/19/2011 N = UA Protein) 20:29:00) [facility]oundJvvpbrbKCCDGUZRSS5928-11-48 02:29:00 Test Item Value Reference Range Interpretation Comments UA pH (test code = UA pH) 6.0 1 5.0-8.0 N [facility]oundAbptuggHQFBHUWNZI1272-99-29 02:29:00 Test Item Value Reference Range Interpretation Comments UA Glucose (test code = >=1000 mg/dL A UA Glucose) *ABN*(04/19/2011 20:29:00) [facility]oundUgmdbixMCKAVMKXZK8376-09-45 02:29:00 Test Item Value Reference Range Interpretation Comments Micro? (test code = Performed (04/19/2011 N Micro?) 20:29:00) [facility]oundDxbqlwgIRJJRUQTPD0329-57-24 02:29:00 Test Item Value Reference Range Interpretation Comments UA Nitrite (test code Negative (04/19/2011 N = UA Nitrite) 20:29:00) [facility] RockOcvqspkISZSTKXKWE3413-50-80 02:29:00 Test Item Value Reference Range Interpretation Comments UA Urobilinogen (test code = UA 0.2 0.1-1.0 N Urobilinogen) [facility]entonSxxgigtFZXIGRWIVQ1340-53-08 02:29:00 Test Item Value Reference Range Interpretation Comments UA Leuk Est (test Negative (04/19/2011 N code = UA Leuk Est) 20:29:00) [facility] RockZdxqaqlMLQYICNYUC0967-00-49 02:29:00 Test Item Value Reference Range Interpretation Comments UA Bacteria (test code Occasional /HPF N = UA Bacteria) (04/19/2011 20:29:00) [facility]entonUlwzljhIWYXGCJTEO7593-87-35 02:29:00 Test Item Value Reference Range Interpretation Comments UA Sq Epi (test code Occasional /LPF N = UA Sq Epi) (04/19/2011 20:29:00) [facility] DentonTdqxpdxZOKERBNCWI5745-31-06 02:29:00 Test Item Value Reference Range Interpretation Comments UA WBC (test code = UA 3-5 /HPF (04/19/2011 N WBC) 20:29:00) [facility] DentonQyqtmltRAJXPPDLML5664-32-70 02:29:00 Test Item Value Reference Range Interpretation Comments UA RBC (test 0-2 /HPF See_Comment N [Automated mes anabell] code = UA RBC) (04/19/2011 The system ich 20:29:00) generated this result transmitted ref erence range: <=2. The reference range was not used to int erpret this result as normal/abnormal . [facility] RockRjrnajxGHSDOAZTDC8052-48-40 02:29:00 Test Item Value Reference Range Interpretation Comments UA Spec Grav (test *NA*(04/19/2011 code = UA Spec Grav) 20:29:00) [facility] DentonHxzpukrBPZGKTRFMY9377-34-73 02:29:00 Test Item Value Reference Range Interpretation Comments UA Turbidity (test code = Clear (04/19/2011 N UA Turbidity) 20:29:00) [facility] DentonPynqhdwDGDSLPIHMH0389-13-57 02:29:00 Test Item Value Reference Range Interpretation Comments UA Color (test code = Yellow *NA*(04/19/2011 UA Color) 20:29:00) [facility] RockPbpgvckXCRYZROZZA0349-53-48 02:29:00 Test Item Value Reference Range Interpretation Comments UA Ketones (test code Negative = UA Ketones) *NA*(04/19/2011 20:29:00) [facility] RockPquteboLLXABIGHXK9207-76-17 02:29:00 Test Item Value Reference Range Interpretation Comments UA Bili (test code = Negative *NA*(04/19/2011 UA Bili) 20:29:00) [facility] GLUCOSE WTJIBTT6056-50-86 05:47:00 Test Item Value Reference Range Interpretation Comments Comment1 (test code = Comment1) Notify RN/MD [facility] GLUCOSE CUCHEAY7613-19-36 05:47:00 Test Item Value Reference Range Interpretation Comments Gluc POC Lifscn (test code = Gluc POC 203 65-110 H Lifscn) [facility] CenterZvggulzLJQGWDWRR6913-09-72 02:45:00 Test Item Value Reference Range Interpretation Comments AST (test code = AST) no gt See_Comment N [Auto mated message] The system which ge nerated this result transmit saran reference range : <=37. The reference range was not used to interpr et this result as justina l/abnormal. [facility] CenterHwydphbOAKJJKMTY7959-17-26 02:45:00 Test Item Value Reference Range Interpretation Comments Calcium Lvl (test code = Calcium Lvl) 9.2 8.5-10.5 N [facility] CenterDzizsfiCCZMYAIYL5623-66-44 02:45:00 Test Item Value Reference Range Interpretation Comments AGAP (test code = AGAP) 14.0 10.0-20.0 N [facility] CenterYfryvfaXVRXDDAUY0293-26-68 02:45:00 Test Item Value Reference Range Interpretation Comments CO2 (test code = CO2) 25 24-32 N [facility] CenterOwnksowCZQYWPIAY9582-67-07 02:45:00 Test Item Value Reference Range Interpretation Comments Chloride Lvl (test code = Chloride Lvl) 97 95-109 N [facility] CenterNdkusprVMANVVLAO3619-50-46 02:45:00 Test Item Value Reference Range Interpretation Comments Potassium Lvl (test code = Potassium 4.0 3.5-5.1 N Lvl) [facility] CenterToplrapONCRATHDP2295-00-14 02:45:00 Test Item Value Reference Range Interpretation Comments Creatinine Lvl (test code = Creatinine 0.7 0.5-1.4 N Lvl) [facility] CenterNizjzvdPHZIZWFLZ8517-71-77 02:45:00 Test Item Value Reference Range Interpretation Comments Sodium Lvl (test code = Sodium Lvl) 132 135-145 L [facility] CenterVykhnktQUIWADNOR9318-87-33 02:45:00 Test Item Value Reference Range Interpretation Comments Bili Total (test code = Bili Total) 0.5 0.2-1.3 N [facility] CenterQaeeuawGDWCDDAPG4648-26-99 02:45:00 Test Item Value Reference Range Interpretation Comments Alk Phos (test code = Alk Phos) 69 39-136 N [facility] CenterCvhwigaZSABWASXZ4744-88-69 02:45:00 Test Item Value Reference Range Interpretation Comments ALT (test code = ALT) 14 See_Comment N [Auto mated message] The system which ge nerated this result transmit saran reference range : <=65. The reference range was not used to interpr et this result as justina l/abnormal. [facility] CenterEdtuqfuEBWBFWAPD7171-61-77 02:45:00 Test Item Value Reference Range Interpretation Comments Albumin Lvl (test code = Albumin Lvl) 3.9 3.5-5.0 N [facility] CenterAcquubqUDBSUIEQN0075-94-23 02:45:00 Test Item Value Reference Range Interpretation Comments Total Protein (test code = Total 7.8 6.4-8.4 N Protein) [facility] CenterTkhzevoOKOBZLRKU8091-81-34 02:45:00 Test Item Value Reference Range Interpretation Comments B/C Ratio (test code = B/C Ratio) 19 6-25 N [facility] CenterQbsgysnVAVKKFADI7490-92-63 02:45:00 Test Item Value Reference Range Interpretation Comments A/G Ratio (test code = A/G Ratio) 1.0 0.7-1.6 N [facility] CenterSibdddpHJTOPIAWB2552-23-01 02:45:00 Test Item Value Reference Range Interpretation Comments Globulin (test code = Globulin) 3.9 2.0-4.0 N [facility] CenterValsjcdJIGYVWDSC1302-10-00 02:45:00 Test Item Value Reference Range Interpretation Comments BUN (test code = BUN) 13 7-22 N [facility] CenterWpgthmrHHHRJKVSF2754-16-65 02:45:00 Test Item Value Reference Range Interpretation Comments Glucose Lvl (test code = Glucose Lvl) 410 A [facility] RockXwkmybsCCZACBGUZ6178-71-88 02:45:00 Test Item Value Reference Range Interpretation Comments Lipase Lvl (test code = Lipase Lvl) 171 73-393 N [facility] ArlingtonCnvesziGHFAKSSERV6039-81-42 02:45:00 Test Item Value Reference Range Interpretation Comments Hgb (test code = Hgb) 12.7 12.0-16.0 N [facility] ArlingtonFesymeqERFSLKEFAL7697-19-30 02:45:00 Test Item Value Reference Range Interpretation Comments RDW (test code = RDW) 14.0 11.5-14.5 N [facility] ArlingtonRbwkmjtOBAPNJVGME9457-09-53 02:45:00 Test Item Value Reference Range Interpretation Comments Hct (test code = Hct) 36.9 36.0-48.0 N [facility] ArlingtonQgatzhzDNRIKTXBYN8991-65-23 02:45:00 Test Item Value Reference Range Interpretation Comments MCV (test code = MCV) 85.5 81.0-99.0 N [facility] ArlingtonBzzlrebSKFJCAHVVJ6579-23-43 02:45:00 Test Item Value Reference Range Interpretation Comments MCH (test code = MCH) 29.5 pg 27.0-31.0 N [facility] ArlingtonHoyierdFLZQWVHXUF1846-41-97 02:45:00 Test Item Value Reference Range Interpretation Comments MCHC (test code = MCHC) 34.5 32.0-36.0 N [facility] ArlingtonUdmbcdiDBUFQZYDJC9370-19-85 02:45:00 Test Item Value Reference Range Interpretation Comments Platelet (test code = Platelet) 278 133-450 N [facility] ArlingtonRvilkvaGJHIEIVQXX2668-71-97 02:45:00 Test Item Value Reference Range Interpretation Comments MPV (test code = MPV) 8.2 7.4-10.4 N [facility] ArlingtonVdwfmjaHLVJSBXYUH3389-92-96 02:45:00 Test Item Value Reference Range Interpretation Comments WBC (test code = WBC) 6.9 3.7-10.4 N [facility] ArlingtonWmeuazmXVKCRVDUHN2484-38-62 02:45:00 Test Item Value Reference Range Interpretation Comments RBC (test code = RBC) 4.32 4.20-5.40 N [facility] ArlingtonPgorlixJYKIPLSKJD2598-00-65 02:45:00 Test Item Value Reference Range Interpretation Comments Basophils (test code = 0.5 See_Comment N [Aut omated message] The Basophils) system which ge nerated this result tra nsmitted reference range : <=1.0. The reference r kehinde was not used to int erpret this result as normal/abnormal . [facility] ArlingtonBrizoiyKMWSABZKNA1675-93-07 02:45:00 Test Item Value Reference Range Interpretation Comments Segs-Bands # (test code = Segs-Bands #) 4.6 1.5-8.1 N [facility] ArlingtonGxhpypfFYPKAJHVHL6187-52-83 02:45:00 Test Item Value Reference Range Interpretation Comments Lymphocytes # (test code = Lymphocytes 1.9 1.0-5.5 N #) [facility] ArlingtonNuimtniLXAAVSVXPA5166-91-11 02:45:00 Test Item Value Reference Range Interpretation Comments Monocytes # (test code 0.3 See_Comment N [Aut omated message] The = Monocytes #) system which generated this result tra nsmitted reference range : <=0.8. The reference r kehinde was not used to int erpret this result as normal/abnormal . [facility] ArlingtonDqqqfhwJAIUAHXGIV5563-45-21 02:45:00 Test Item Value Reference Range Interpretation Comments Eosinophils # (test code 0.1 See_Comment N [A utomated message] The = Eosinophils #) system whic h generated this result tra nsmitted reference range : <=0.5. The reference r kehinde was not used to int erpret this result as normal/abnormal . [facility] ArlingtonEtjwdhhEPALEVFBED6893-68-12 02:45:00 Test Item Value Reference Range Interpretation Comments Basophils # (test code 0.0 See_Comment N [Aut omated message] The = Basophils #) system which generated this result tra nsmitted reference range : <=0.2. The reference r kehinde was not used to int erpret this result as normal/abnormal . [facility] ArlingtonPkovtmuBPJIBXNMXM8665-98-35 02:45:00 Test Item Value Reference Range Interpretation Comments Lymphocytes (test code = Lymphocytes) 27.2 20.0-40.0 N [facility] ArlingtonXybuftzXQYNMJTYEP4525-12-05 02:45:00 Test Item Value Reference Range Interpretation Comments Segs (test code = Segs) 66.3 45.0-75.0 N [facility] ArlingtonWmwgvjrGZAROQUPXP5477-75-27 02:45:00 Test Item Value Reference Range Interpretation Comments Monocytes (test code = Monocytes) 4.8 2.0-12.0 N [facility] RockZhbnkxzPMIIJJZXHJ2383-62-32 02:45:00 Test Item Value Reference Range Interpretation Comments Eosinophils (test code = 1.2 See_Comment N [A utomated message] The Eosinophils) system which ge nerated this result tra nsmitted reference range : <=4.0. The reference r kehinde was not used to int erpret this result as normal/abnormal . [facility] RockUwradfzRFOJGBNDTD6010-44-36 02:00:00 Test Item Value Reference Range Interpretation Comments UA Bacteria (test code Occasional /HPF N = UA Bacteria) (03/25/2011 20:00:00) [facility]entonUlxthfxKMUGGJPELM8368-11-26 02:00:00 Test Item Value Reference Range Interpretation Comments UA [place] Yeast (test Occasional /HPF A code = UA [place] Yeast) *ABN*(03/25/2011 20:00:00) [facility] DentonUcvjrckSOORPIQEHT9823-08-14 02:00:00 Test Item Value Reference Range Interpretation Comments UA Sq Epi (test code = Rare /LPF (03/25/2011 N UA Sq Epi) 20:00:00) [facility] DentonLixejeuOFUYFWDPYN5354-32-80 02:00:00 Test Item Value Reference Range Interpretation Comments UA WBC (test code = UA 0-2 /HPF (03/25/2011 N WBC) 20:00:00) [facility] DentonWduakorFPSBVDHJPV0616-87-44 02:00:00 Test Item Value Reference Range Interpretation Comments UA RBC (test 0-2 /HPF See_Comment N [Automated mes anabell] code = UA RBC) (03/25/2011 The system wh ich 20:00:00) generated this result transmitted ref erence range: <=2. The reference range was not used to int erpret this result as normal/abnormal . [facility] DentonBcdghmeKQNZQCYJCY4026-14-97 02:00:00 Test Item Value Reference Range Interpretation Comments UA Leuk Est (test Negative (03/25/2011 N code = UA Leuk Est) 20:00:00) [facility] DentonRhuercyNEVUMOYJUJ6515-85-72 02:00:00 Test Item Value Reference Range Interpretation Comments Micro? (test code = Performed (03/25/2011 N Micro?) 20:00:00) [facility]KnjmrzbJBLMNPLELG4488-97-24 02:00:00 Test Item Value Reference Range Interpretation Comments UA Nitrite (test code Negative (03/25/2011 N = UA Nitrite) 20:00:00) [facility]oundOswudvuFQRHASJVNY3180-18-69 02:00:00 Test Item Value Reference Range Interpretation Comments UA Blood (test code = Negative (03/25/2011 N UA Blood) 20:00:00) [facility]oundMzirvoqPQQPHLZPXJ1281-01-74 02:00:00 Test Item Value Reference Range Interpretation Comments UA Urobilinogen (test code = UA 0.2 0.1-1.0 N Urobilinogen) [facility]oundKuoitfpWKJBFWENIE2355-72-96 02:00:00 Test Item Value Reference Range Interpretation Comments UA Color (test code = Yellow *NA*(03/25/2011 UA Color) 20:00:00) [facility]oundJgscuadVIJUSTKWUO9120-24-42 02:00:00 Test Item Value Reference Range Interpretation Comments UA Turbidity (test code = Clear (03/25/2011 N UA Turbidity) 20:00:00) [facility]oundUokpymaUPIZLKZOQF3631-72-85 02:00:00 Test Item Value Reference Range Interpretation Comments UA Spec Grav (test *NA*(03/25/2011 code = UA Spec Grav) 20:00:00) [facility]oundQjgxjxjZFNULNVWOD6927-97-07 02:00:00 Test Item Value Reference Range Interpretation Comments UA Bili (test code = Negative *NA*(03/25/2011 UA Bili) 20:00:00) [facility]oundVgfspwuJMRTNCYRKU7018-42-82 02:00:00 Test Item Value Reference Range Interpretation Comments UA Glucose (test code = >=1000 mg/dL A UA Glucose) *ABN*(03/25/2011 20:00:00) [facility]oundWgkvgtdOCBNOCCWLW2771-27-00 02:00:00 Test Item Value Reference Range Interpretation Comments UA Ketones (test code Negative = UA Ketones) *NA*(03/25/2011 20:00:00) [facility]oundYkqlyndWIIPTSMBPV5254-95-31 02:00:00 Test Item Value Reference Range Interpretation Comments UA pH (test code = UA pH) 6.0 1 5.0-8.0 N [facility] DentonLyfsiwySCIGNPQXDT8468-15-96 02:00:00 Test Item Value Reference Range Interpretation Comments UA Protein (test code Negative (03/25/2011 N = UA Protein) 20:00:00) [facility] GLUCOSE NRSQZMK1327-04-69 16:26:00 Test Item Value Reference Range Interpretation Comments Gluc POC Lifscn (test code = Gluc POC 227.0 65-110 H Lifscn) [facility] CenterPcpslbdTHRLKCXAH4374-04-63 15:30:00 Test Item Value Reference Range Interpretation Comments CK MB Index (test no gt See_Comment N [Automate d message] The code = CK MB Index) system w [facility] generated this result transmit saran reference range : <=2.5. The reference range was not used to interpr et this result as justina l/abnormal. [facility] CenterPbffxuzNCNNNFVIG1879-76-72 15:30:00 Test Item Value Reference Range Interpretation Comments CK MB (test code = CK MB) no gt 0.5-3.6 N [facility] CenterEqjodwfLOQMZKJES0410-33-17 15:30:00 Test Item Value Reference Range Interpretation Comments Total CK (test code = Total CK) 77.0 12-191 N [facility] CenterKukwfkrPXRSYXVCL9753-84-88 15:30:00 Test Item Value Reference Range Interpretation Comments Total CK (test code = Total CK) 77.0 12-191 N [facility] CenterXlqjuhqOQFLPMQHY2223-99-91 15:30:00 Test Item Value Reference Range Interpretation Comments Troponin-I (test code no gt See_Comment N [Auto mated message] The = Troponin-I) system which g enerated this result transmit saran reference range : <=0.40. The reference r kehinde was not used to interpr et this result as justina l/abnormal. [facility] GLUCOSE OYANNYX6366-72-54 12:00:00 Test Item Value Reference Range Interpretation Comments Gluc POC Lifscn (test code = Gluc POC 394.0 65-110 H Lifscn) [facility] CenterBvtihnuYXLLFKUVL8874-99-92 09:29:00 Test Item Value Reference Range Interpretation Comments Magnesium Lvl (test code = Magnesium 1.5 1.8-2.4 L Lvl) [facility] CenterXdbgmvuXOSMISTZO4781-65-19 09:29:00 Test Item Value Reference Range Interpretation Comments Glucose Lvl (test code = Glucose Lvl) 222.0 [facility] CenterScqyxxyJPSYWMOLR1311-19-56 09:29:00 Test Item Value Reference Range Interpretation Comments BUN (test code = BUN) 11.0 7-22 N [facility] CenterQrwsdmgJJFEWGJBS9993-39-31 09:29:00 Test Item Value Reference Range Interpretation Comments Calcium Lvl (test code = Calcium Lvl) 7.8 8.5-10.5 L [facility] CenterRharhigAOHWZNUJL7788-84-34 09:29:00 Test Item Value Reference Range Interpretation Comments AGAP (test code = AGAP) 13.7 10.0-20.0 N [facility] CenterFaimjeeXUPJFXMXC3826-15-35 09:29:00 Test Item Value Reference Range Interpretation Comments Creatinine Lvl (test code = Creatinine 0.6 0.5-1.4 N Lvl) [facility] CenterJnltmvyRSDCSOUPL7428-49-06 09:29:00 Test Item Value Reference Range Interpretation Comments Sodium Lvl (test code = Sodium Lvl) 137.0 135-145 N [facility] CenterHpztvjrAYBIIOHKL5122-70-09 09:29:00 Test Item Value Reference Range Interpretation Comments Potassium Lvl (test code = Potassium 3.7 3.5-5.1 N Lvl) [facility] CenterNkcuvkjMPOZRKOTZ9533-13-35 09:29:00 Test Item Value Reference Range Interpretation Comments Chloride Lvl (test code = Chloride Lvl) 103.0 95-109 N [facility] CenterXbsbppxOJPJGDUWA5626-94-94 09:29:00 Test Item Value Reference Range Interpretation Comments CO2 (test code = CO2) 24.0 24-32 N [facility] CenterZrzkvmnLMMTQJDVL9588-99-16 09:29:00 Test Item Value Reference Range Interpretation Comments Troponin-I (test code no gt See_Comment N [Auto mated message] The = Troponin-I) system which g enerated this result transmit saran reference range : <=0.40. The reference r kehinde was not used to interpr et this result as justina l/abnormal. [facility] CenterJlmricwZPIFUDQYO4639-45-08 09:29:00 Test Item Value Reference Range Interpretation Comments Total CK (test code = Total CK) 71.0 12-191 N [facility] CenterXpdksghKAUWLOBNW1315-82-22 09:29:00 Test Item Value Reference Range Interpretation Comments Total CK (test code = Total CK) 71.0 12-191 N [facility]BsnpqtuYQJEKBDDNQ7992-47-88 09:29:00 Test Item Value Reference Range Interpretation Comments MPV (test code = MPV) 7.8 7.4-10.4 N [facility] ArlingtonRldnvyuLZVIRJYHKP5768-01-74 09:29:00 Test Item Value Reference Range Interpretation Comments RDW (test code = RDW) 14.1 11.5-14.5 N [facility] ArlingtonNutgzlmJOOCZDGZJP2950-83-05 09:29:00 Test Item Value Reference Range Interpretation Comments WBC (test code = WBC) 6.8 3.7-10.4 N [facility] ArlingtonFuhmiopEFGGXDIANA4965-13-39 09:29:00 Test Item Value Reference Range Interpretation Comments Hgb (test code = Hgb) 11.8 12.0-16.0 L [facility] ArlingtonQkuzgjnUPMKIJOQKZ5126-18-66 09:29:00 Test Item Value Reference Range Interpretation Comments RBC (test code = RBC) 4.11 4.20-5.40 L [facility] ArlingtonPkmmobaFQMJFLJPRD6209-07-31 09:29:00 Test Item Value Reference Range Interpretation Comments Hct (test code = Hct) 35.3 36.0-48.0 L [facility] ArlingtonXqlibakGFRGYQNWFT2530-58-60 09:29:00 Test Item Value Reference Range Interpretation Comments MCH (test code = MCH) 28.7 pg 27.0-31.0 N [facility] ArlingtonLgndvsaLJCJEOMPTO5223-14-65 09:29:00 Test Item Value Reference Range Interpretation Comments MCV (test code = MCV) 85.7 81.0-99.0 N [facility] ArlingtonRjisnooFHEBLNRDRD2069-03-61 09:29:00 Test Item Value Reference Range Interpretation Comments Platelet (test code = Platelet) 193.0 133-450 N [facility] ArlingtonQmvyzihTGRFOLPEEI1614-24-77 09:29:00 Test Item Value Reference Range Interpretation Comments MCHC (test code = MCHC) 33.5 32.0-36.0 N [facility] ArlingtonSfiszviJSWGFVHWMJ9245-76-61 09:29:00 Test Item Value Reference Range Interpretation Comments Lymphocytes (test code = Lymphocytes) 26.3 20.0-40.0 N [facility] ArlingtonBjubdjiMDKZXBSKNK8252-19-92 09:29:00 Test Item Value Reference Range Interpretation Comments Segs (test code = Segs) 65.8 45.0-75.0 N [facility] ArlingtonEneaeiqHTTMBNRZQE5396-12-87 09:29:00 Test Item Value Reference Range Interpretation Comments Monocytes (test code = Monocytes) 6.1 2.0-12.0 N [facility] ArlingtonJmjugdnFQQJXNGSOS3750-36-38 09:29:00 Test Item Value Reference Range Interpretation Comments Eosinophils (test code = 1.2 See_Comment N [A utomated message] The Eosinophils) system which ge nerated this result tra nsmitted reference range : <=4.0. The reference r kehinde was not used to int erpret this result as normal/abnormal . [facility] ArlingtonNfgddalFOOPFZQFJO2312-80-01 09:29:00 Test Item Value Reference Range Interpretation Comments Basophils (test code = 0.6 See_Comment N [Aut omated message] The Basophils) system which ge nerated this result tra nsmitted reference range : <=1.0. The reference r kehinde was not used to int erpret this result as normal/abnormal . [facility] ArlingtonMkghweyDVTAJTSAOS8920-96-55 09:29:00 Test Item Value Reference Range Interpretation Comments Segs-Bands # (test code = Segs-Bands #) 4.5 1.5-8.1 N [facility] ArlingtonVuxcdnqZCACWABDXG0928-40-91 09:29:00 Test Item Value Reference Range Interpretation Comments Lymphocytes # (test code = Lymphocytes 1.8 1.0-5.5 N #) [facility] ArlingtonGrvfwbnMCAPYBKCXT6951-68-95 09:29:00 Test Item Value Reference Range Interpretation Comments Monocytes # (test code 0.4 See_Comment N [Aut omated message] The = Monocytes #) system which generated this result tra nsmitted reference range : <=0.8. The reference r kehinde was not used to int erpret this result as normal/abnormal . [facility] ArlingtonPifvifgMBOCXYFMNC4998-81-38 09:29:00 Test Item Value Reference Range Interpretation Comments Basophils # (test code 0.0 See_Comment N [Aut omated message] The = Basophils #) system which generated this result tra nsmitted reference range : <=0.2. The reference r kehinde was not used to int erpret this result as normal/abnormal . [facility] ArlingtonVtuhbnyRLPEJTPZRW3946-12-24 09:29:00 Test Item Value Reference Range Interpretation Comments Eosinophils # (test code 0.1 See_Comment N [A utomated message] The = Eosinophils #) system whic h generated this result tra nsmitted reference range : <=0.5. The reference r kehinde was not used to int erpret this result as normal/abnormal . [facility] GLUCOSE NLQYDYU2661-82-79 05:34:00 Test Item Value Reference Range Interpretation Comments Gluc POC Lifscn (test code = Gluc POC 151.0 65-110 H Lifscn) [facility] RockRvudwalVRPQKMMFZE0854-67-99 03:26:00 Test Item Value Reference Range Interpretation Comments UA Glucose (test code = >=1000 mg/dL A UA Glucose) *ABN*(02/10/2011 22:26:00) ?? [facility]entonVmelchnBFCBEYRYTL4658-02-48 03:26:00 Test Item Value Reference Range Interpretation Comments UA Ketones (test code Negative mg/dL = UA Ketones) *NA*(02/10/2011 22:26:00) ?? [facility] RockSzqkbmlZZUVVFDGGM8959-29-61 03:26:00 Test Item Value Reference Range Interpretation Comments UA pH (test code = UA pH) 6.5 1 5.0-8.0 N [facility] RockNllpnnzXZUPAIHGOA8834-62-76 03:26:00 Test Item Value Reference Range Interpretation Comments UA Protein (test code Negative mg/dL N = UA Protein) (02/10/2011 22:26:00) ?? [facility] RockCqvcnkxIECXBAAJIV5775-84-67 03:26:00 Test Item Value Reference Range Interpretation Comments UA Nitrite (test code Negative (02/10/2011 N = UA Nitrite) 22:26:00) ?? [facility] RockCiucdqgWSBBNVORRC1892-36-68 03:26:00 Test Item Value Reference Range Interpretation Comments UA Leuk Est (test Negative (02/10/2011 N code = UA Leuk Est) 22:26:00) ?? [facility] RockQmoufxiNYLTOGQVNL8697-61-40 03:26:00 Test Item Value Reference Range Interpretation Comments UA Urobilinogen (test code = UA 0.2 0.1-1.0 N Urobilinogen) [facility]entonWwmpyfaGFWNZRFRFN8606-63-48 03:26:00 Test Item Value Reference Range Interpretation Comments UA Blood (test code = Negative (02/10/2011 N UA Blood) 22:26:00) ?? [facility]entonRwpbdfhPPOGMRWIHB8354-23-19 03:26:00 Test Item Value Reference Range Interpretation Comments UA Bili (test code = Negative *NA*(02/10/2011 UA Bili) 22:26:00) ?? [facility]entonIfpaszvHXOEXVVYYQ6513-71-69 03:26:00 Test Item Value Reference Range Interpretation Comments UA Turbidity (test code = Clear (02/10/2011 N UA Turbidity) 22:26:00) ?? [facility]entonOnqarhiEHPMGFTFUH8816-97-63 03:26:00 Test Item Value Reference Range Interpretation Comments UA Spec Grav (test code = UA Spec 1.01 1 N Grav) TnfbdjmFESUOGNMDE9791-37-59 03:26:00 Test Item Value Reference Range Interpretation Comments UA Color (test code = Yellow *NA*(02/10/2011 UA Color) 22:26:00) ?? [facility]entonWazmqhgKVDFLUMISB4220-69-16 03:26:00 Test Item Value Reference Range Interpretation Comments UA RBC (test 0-2 /HPF See_Comment N [Automated mes anabell] code = UA RBC) (02/10/2011 The system wh ich 22:26:00) ?? generated this result transmitted ref erence range: <=2. The reference range was not used to int erpret this result as normal/abnormal . [facility] DentonYydmoiyOMXZVXHBWC1722-15-31 03:26:00 Test Item Value Reference Range Interpretation Comments UA WBC (test code = UA 6-10 /HPF A WBC) *ABN*(02/10/2011 22:26:00) ?? [facility] DentonRhlrmubUTSYKETXDX1757-06-96 03:26:00 Test Item Value Reference Range Interpretation Comments UA Sq Epi (test code = Few /LPF (02/10/2011 N UA Sq Epi) 22:26:00) ?? [facility]entonOnynhdxPRKTHEBECY8595-77-66 03:26:00 Test Item Value Reference Range Interpretation Comments UA Bacteria (test code = Few /HPF (02/10/2011 N UA Bacteria) 22:26:00) ?? [facility]entonNmduwicDOJKWYKMGU9599-02-04 03:26:00 Test Item Value Reference Range Interpretation Comments UA [place] Yeast (test Occasional /HPF A code = UA [place] Yeast) *ABN*(02/10/2011 22:26:00) ?? [facility] RockIxrbyorDTSNPVIPVR6950-62-07 03:26:00 Test Item Value Reference Range Interpretation Comments Micro? (test code = Performed (02/10/2011 N Micro?) 22:26:00) ?? [facility] CenterQrxvduvTKXFPNKZY0428-12-78 03:03:00 Test Item Value Reference Range Interpretation Comments S Preg (test code = S Negative *NA*(02/10/2011 Preg) 22:03:00) ?? [facility] CenterNrcbgelXHKEUSXMQ2854-06-85 03:03:00 Test Item Value Reference Range Interpretation Comments CK MB (test code = CK MB) no gt 0.5-3.6 N [facility] CenterGewxjwbHFGGDTCOJ9048-44-44 03:03:00 Test Item Value Reference Range Interpretation Comments Troponin-I (test code no gt See_Comment N [Auto mated message] The = Troponin-I) system which g enerated this result transmit saran reference range : <=0.40. The reference r kehinde was not used to interpr et this result as justina l/abnormal. [facility] CenterFudagwbCSYEPOCNS8097-50-56 03:03:00 Test Item Value Reference Range Interpretation Comments AST (test code = AST) 7.0 See_Comment N [Auto mated message] The system which ge nerated this result transmit saran reference range : <=37. The reference range was not used to interpr et this result as justina l/abnormal. [facility] CenterPfarhcbWGLIOVSVC7631-08-34 03:03:00 Test Item Value Reference Range Interpretation Comments Albumin Lvl (test code = Albumin Lvl) 4.0 3.5-5.0 N [facility] CenterFsscxeyXPVJJFZCG7867-22-34 03:03:00 Test Item Value Reference Range Interpretation Comments Total Protein (test code = Total 7.5 6.4-8.4 N Protein) [facility] CenterRjmwibnFAOLKURCF7232-76-59 03:03:00 Test Item Value Reference Range Interpretation Comments A/G Ratio (test code = A/G Ratio) 1.1 1 0.7-1.6 N [facility] CenterDsgqzdcVFCOBLCHQ1243-80-46 03:03:00 Test Item Value Reference Range Interpretation Comments Globulin (test code = Globulin) 3.5 2.0-4.0 N [facility] CenterDiuihnjIVFMUDRKJ3954-33-15 03:03:00 Test Item Value Reference Range Interpretation Comments ALT (test code = ALT) 14.0 See_Comment N [Auto mated message] The system which ge nerated this result transmit saran reference range : <=65. The reference range was not used to interpr et this result as justina l/abnormal. [facility] CenterZfzoxcuBDYUKQMIJ5683-19-62 03:03:00 Test Item Value Reference Range Interpretation Comments Bili Total (test code = Bili Total) 0.3 0.2-1.3 N [facility] CenterMvgzbchVUUSOMCNX7815-97-79 03:03:00 Test Item Value Reference Range Interpretation Comments Alk Phos (test code = Alk Phos) 69.0 39-136 N [facility] CenterHdndguxGRAVQMODY4155-42-77 03:03:00 Test Item Value Reference Range Interpretation Comments CO2 (test code = CO2) 22.0 24-32 L [facility] CenterDvmkzuzIGIPSGKYN9884-85-26 03:03:00 Test Item Value Reference Range Interpretation Comments B/C Ratio (test code = B/C Ratio) 20.0 1 6-25 N [facility] CenterTuhvwqaYKBUPOEEA8757-38-52 03:03:00 Test Item Value Reference Range Interpretation Comments Chloride Lvl (test code = Chloride Lvl) 96.0 95-109 N [facility] CenterCplkxvfPWDRXPYQY5498-45-70 03:03:00 Test Item Value Reference Range Interpretation Comments Calcium Lvl (test code = Calcium Lvl) 8.7 8.5-10.5 N [facility] CenterWggdlxsRXVYBTOQG9848-13-73 03:03:00 Test Item Value Reference Range Interpretation Comments AGAP (test code = AGAP) 17.3 10.0-20.0 N [facility] CenterFdajjeyOBIBFGHQC1131-99-46 03:03:00 Test Item Value Reference Range Interpretation Comments Glucose Lvl (test code = Glucose Lvl) 417.0 A [facility] CenterMxfshgbKGJLDERQR8677-78-55 03:03:00 Test Item Value Reference Range Interpretation Comments Sodium Lvl (test code = Sodium Lvl) 131.0 135-145 L [facility] CenterEksohwfNQMTXJHOW2823-79-13 03:03:00 Test Item Value Reference Range Interpretation Comments Creatinine Lvl (test code = Creatinine 0.6 0.5-1.4 N Lvl) [facility] CenterSbhojcdDJXUGWRML6944-41-38 03:03:00 Test Item Value Reference Range Interpretation Comments BUN (test code = BUN) 12.0 7-22 N [facility] CenterBevnrsgNBTZHRFBR1393-16-31 03:03:00 Test Item Value Reference Range Interpretation Comments Potassium Lvl (test code = Potassium 4.3 3.5-5.1 N Lvl) [facility] CenterKpmvmceJDTDGUFHC6285-17-10 03:03:00 Test Item Value Reference Range Interpretation Comments Ketones Qual (test Negative (02/10/2011 N code = Ketones Qual) 22:03:00) ?? [facility] ArlingtonYlksspqBISKASPVCV9672-30-17 03:03:00 Test Item Value Reference Range Interpretation Comments Segs-Bands # (test code = Segs-Bands #) 3.9 1.5-8.1 N [facility] ArlingtonHpstmknDZGVGRSIUQ5647-14-72 03:03:00 Test Item Value Reference Range Interpretation Comments Lymphocytes # (test code = Lymphocytes 2.0 1.0-5.5 N #) [facility] ArlingtonNvmbgxuOUZOHFIFOB8861-97-05 03:03:00 Test Item Value Reference Range Interpretation Comments Basophils (test code = 0.5 See_Comment N [Aut omated message] The Basophils) system which ge nerated this result tra nsmitted reference range : <=1.0. The reference r kehinde was not used to int erpret this result as normal/abnormal . [facility] ArlingtonBkvwrgqMVHXLWFIOY5783-74-84 03:03:00 Test Item Value Reference Range Interpretation Comments Monocytes # (test code 0.4 See_Comment N [Aut omated message] The = Monocytes #) system which generated this result tra nsmitted reference range : <=0.8. The reference r kehinde was not used to int erpret this result as normal/abnormal . [facility] ArlingtonJvobsjbNWDPXOKRHV4747-49-01 03:03:00 Test Item Value Reference Range Interpretation Comments Eosinophils # (test code 0.1 See_Comment N [A utomated message] The = Eosinophils #) system whic h generated this result tra nsmitted reference range : <=0.5. The reference r kehinde was not used to int erpret this result as normal/abnormal . [facility] ArlingtonBtvglmdKYOGIODVBY5665-50-98 03:03:00 Test Item Value Reference Range Interpretation Comments Segs (test code = Segs) 60.9 45.0-75.0 N [facility] ArlingtonGjgdqttEMHWFTZDIY3183-97-52 03:03:00 Test Item Value Reference Range Interpretation Comments Lymphocytes (test code = Lymphocytes) 31.7 20.0-40.0 N [facility] ArlingtonInoipcnSIDSNNYSTE8851-26-17 03:03:00 Test Item Value Reference Range Interpretation Comments Eosinophils (test code = 1.2 See_Comment N [A utomated message] The Eosinophils) system which ge nerated this result tra nsmitted reference range : <=4.0. The reference r kehinde was not used to int erpret this result as normal/abnormal . [facility] ArlingtonSomiyeqNRYASMZOHL1462-95-15 03:03:00 Test Item Value Reference Range Interpretation Comments Monocytes (test code = Monocytes) 5.7 2.0-12.0 N [facility] ArlingtonRcicyhrDTXYQJTEIP7767-78-64 03:03:00 Test Item Value Reference Range Interpretation Comments Basophils # (test code 0.0 See_Comment N [Aut omated message] The = Basophils #) system which generated this result tra nsmitted reference range : <=0.2. The reference r kehinde was not used to int erpret this result as normal/abnormal . [facility] ArlingtonSibqdntJSRAEITOFV5899-91-98 03:03:00 Test Item Value Reference Range Interpretation Comments PT (test code = PT) 13.9 s 12.0-14.7 N [facility] ArlingtonTxjwozgEXFQOXYZZY9242-51-30 03:03:00 Test Item Value Reference Range Interpretation Comments PTT (test code = PTT) 28.4 s 22.9-35.8 N [facility] ArlingtonQqxwywySHXPAOUKFH3350-80-47 03:03:00 Test Item Value Reference Range Interpretation Comments INR (test code = INR) 1.07 1 0.85-1.17 N [facility] ArlingtonCebrcczVNZPPARBOB9801-41-75 03:03:00 Test Item Value Reference Range Interpretation Comments MCHC (test code = MCHC) 33.7 32.0-36.0 N [facility] ArlingtonDxmagfeFOXXCRODSU8450-91-28 03:03:00 Test Item Value Reference Range Interpretation Comments RDW (test code = RDW) 14.3 11.5-14.5 N [facility] ArlingtonWkdgyktVPXRHHHYYQ8844-89-81 03:03:00 Test Item Value Reference Range Interpretation Comments Platelet (test code = Platelet) 224.0 133-450 N [facility] ArlingtonZmqykzjTLPQNLHUMF1278-97-74 03:03:00 Test Item Value Reference Range Interpretation Comments MPV (test code = MPV) 7.9 7.4-10.4 N [facility] ArlingtonKotgxbkCOQFASVVQY8335-85-20 03:03:00 Test Item Value Reference Range Interpretation Comments MCV (test code = MCV) 85.9 81.0-99.0 N [facility] ArlingtonKowbtbhXWTUVEDOXZ7448-80-04 03:03:00 Test Item Value Reference Range Interpretation Comments RBC (test code = RBC) 4.43 4.20-5.40 N [facility] ArlingtonIcsumkpJFXYQVDMZL9244-35-84 03:03:00 Test Item Value Reference Range Interpretation Comments Hct (test code = Hct) 38.1 36.0-48.0 N [facility] ArlingtonOzkknpjVEZAUFTFFH6151-08-95 03:03:00 Test Item Value Reference Range Interpretation Comments Hgb (test code = Hgb) 12.8 12.0-16.0 N [facility] ArlingtonPxrmamoTPCDMYUIKG6318-24-08 03:03:00 Test Item Value Reference Range Interpretation Comments MCH (test code = MCH) 28.9 pg 27.0-31.0 N [facility] ArlingtonXzmogruHZNNLCXVHP6896-60-30 03:03:00 Test Item Value Reference Range Interpretation Comments WBC (test code = WBC) 6.5 3.7-10.4 N [facility] ArlingtonZnacqtpSEWNEYZVCK9152-14-26 03:03:00 Test Item Value Reference Range Interpretation Comments D-Dimer (test code = D-Dimer) 1.1 [facility] GLUCOSE OVCFNMM7316-63-86 16:39:00 Test Item Value Reference Range Interpretation Comments Gluc POC Lifscn (test code = Gluc POC 175.0 65-110 H Lifscn) [facility] GLUCOSE JVRUMSZ3419-99-10 16:39:00 Test Item Value Reference Range Interpretation Comments Comment1 (test code = Comment1) Notify RN/ [facility] GLUCOSE SAGAUNN1853-47-84 12:16:00 Test Item Value Reference Range Interpretation Comments Comment1 (test code = Comment1) Notify RN/ [facility] GLUCOSE GBHYMOS5115-70-14 12:16:00 Test Item Value Reference Range Interpretation Comments Gluc POC Lifscn (test code = Gluc POC 88.0 65-110 N Lifscn) [facility] GLUCOSE QMRIBGJ6809-75-38 11:27:00 Test Item Value Reference Range Interpretation Comments Comment1 (test code = Comment1) Notify RN/MD [facility] GLUCOSE RGZZZLZ7777-91-62 11:27:00 Test Item Value Reference Range Interpretation Comments Gluc POC Lifscn (test code = Gluc POC 70.0 65-110 N Lifscn) [facility] CenterFpfzfviEZOFVQARF3126-21-62 10:45:00 Test Item Value Reference Range Interpretation Comments CK MB Index (test no gt See_Comment N [Automate d message] The code = CK MB Index) system w [facility] generated this result transmit saran reference range : <=2.5. The reference range was not used to interpr et this result as justina l/abnormal. [facility] CenterOtzjtmdUHIUDHUWY0414-18-61 10:45:00 Test Item Value Reference Range Interpretation Comments CK MB (test code = CK MB) no gt 0.5-3.6 N [facility] CenterDjknswiXOUYFPBOA9420-62-74 10:45:00 Test Item Value Reference Range Interpretation Comments Troponin-I (test code no gt See_Comment N [Auto mated message] The = Troponin-I) system which g enerated this result transmit saran reference range : <=0.40. The reference r kehinde was not used to interpr et this result as justina l/abnormal. [facility] CenterLzfnorqAYHDBGLDB9117-54-58 10:45:00 Test Item Value Reference Range Interpretation Comments Total CK (test code = Total CK) 88.0 12-191 N [facility] CenterOflybdxFHXOKFDZO7337-49-19 10:45:00 Test Item Value Reference Range Interpretation Comments Creatinine Lvl (test code = Creatinine 0.6 0.5-1.4 N Lvl) [facility] CenterNrtwejeBUJIVWORD3421-64-03 10:45:00 Test Item Value Reference Range Interpretation Comments Potassium Lvl (test code = Potassium 3.4 3.5-5.1 L Lvl) [facility] CenterFqoqfstRAMFQUMDL0139-70-68 10:45:00 Test Item Value Reference Range Interpretation Comments Sodium Lvl (test code = Sodium Lvl) 141.0 135-145 N [facility] CenterDtpwmfwFTYICYCOY7065-29-23 10:45:00 Test Item Value Reference Range Interpretation Comments BUN (test code = BUN) 13.0 7-22 N [facility] CenterNoxkiiwPHQWLMCOF3484-37-40 10:45:00 Test Item Value Reference Range Interpretation Comments CO2 (test code = CO2) 25.0 24-32 N [facility] CenterZcwfuyuEHOLCUDIA9635-59-29 10:45:00 Test Item Value Reference Range Interpretation Comments Calcium Lvl (test code = Calcium Lvl) 8.0 8.5-10.5 L [facility] CenterRjjjpktTLVRHUELU5384-90-77 10:45:00 Test Item Value Reference Range Interpretation Comments AGAP (test code = AGAP) 18.4 10.0-20.0 N [facility] CenterWdkatzdKNYQOKWKE1454-24-15 10:45:00 Test Item Value Reference Range Interpretation Comments Chloride Lvl (test code = Chloride Lvl) 101.0 95-109 N [facility] CenterFlzpfogZWRIMEQUG4594-70-60 10:45:00 Test Item Value Reference Range Interpretation Comments Glucose Lvl (test code = Glucose Lvl) 122.0 [facility] CenterJetxriyNOOAWCJCB3535-45-40 10:45:00 Test Item Value Reference Range Interpretation Comments LDL (test code = LDL) 96.0 See_Comment N [Auto mated message] The system which ge nerated this result transmit saran reference range : <=129. The reference range was not used to interpr et this result as justina l/abnormal. [facility] CenterAkbelmuKJMCOFHSP6950-99-10 10:45:00 Test Item Value Reference Range Interpretation Comments CHD Risk (test code = CHD Risk) 3.8 1 3.90-5.80 L [facility] CenterArrhanaNIEWOFUPH8975-73-73 10:45:00 Test Item Value Reference Range Interpretation Comments HDL (test code = HDL) 45.0 N [facility] CenterOqjknhsMNAZOEHCJ1265-68-60 10:45:00 Test Item Value Reference Range Interpretation Comments Trig (test code = 150.0 See_Comment N [Automate d message] The Trig) system which nerated this result transmit saran reference range : <=200. The reference range was not used to interpr et this result as justina l/abnormal. [facility] CenterZpetxurRKONVNNKE0013-18-22 10:45:00 Test Item Value Reference Range Interpretation Comments Chol (test code = Chol) 171.0 120-200 N [facility] CenterYorvppzVCKOUMQXF0075-91-28 01:43:00 Test Item Value Reference Range Interpretation Comments CK MB (test code = CK MB) no gt 0.5-3.6 N [facility] CenterKsqwintJRVQNVIWE5003-98-75 01:43:00 Test Item Value Reference Range Interpretation Comments CK MB Index (test no gt See_Comment N [Automate d message] The code = CK MB Index) system w [employer] generated this result transmit saran reference range : <=2.5. The reference range was not used to interpr et this result as justina l/abnormal. [facility] CenterCuhdfqmFSPLAOMDF0041-03-19 01:43:00 Test Item Value Reference Range Interpretation Comments Total CK (test code = Total CK) 83.0 12-191 N [facility] CenterJavylcwFYVFZPMFN8705-06-32 01:43:00 Test Item Value Reference Range Interpretation Comments Troponin-I (test code no gt See_Comment N [Auto mated message] The = Troponin-I) system which g enerated this result transmit saran reference range : <=0.40. The reference r ekhinde was not used to interpr et this result as justina l/abnormal. [facility] CenterUdsppeuQNPXXFTBX9413-59-98 21:36:00 Test Item Value Reference Range Interpretation Comments U Preg (test code = U Negative (01/14/2011 N Preg) 16:36:00) ?? [facility] CenterMaezuifZQTZTIZIT3693-91-47 20:36:00 Test Item Value Reference Range Interpretation Comments CK MB Index (test no gt See_Comment N [Automate d message] The code = CK MB Index) system w [employer] generated this result transmit saran reference range : <=2.5. The reference range was not used to interpr et this result as justina l/abnormal. [facility] CenterGyrfohoFXNUFIOJY5727-19-00 20:36:00 Test Item Value Reference Range Interpretation Comments BNP (test code = BNP) 13.0 N [facility] CenterKpwfxgxVKSKHVCLO6219-97-78 20:36:00 Test Item Value Reference Range Interpretation Comments AST (test code = AST) <3.0 See_Comment N [Auto mated message] The system which ge nerated this result transmit saran reference range : <=37. The reference range was not used to interpr et this result as justina l/abnormal. [facility] CenterBsuamifWJDRHJQDP6461-69-78 20:36:00 Test Item Value Reference Range Interpretation Comments Bili Total (test code = Bili Total) 0.5 0.2-1.3 N [facility] CenterQsvjgwcFHBHPIHLJ1169-03-07 20:36:00 Test Item Value Reference Range Interpretation Comments Albumin Lvl (test code = Albumin Lvl) 3.8 3.5-5.0 N [facility] CenterEoqpetmROBHWQETL8862-20-10 20:36:00 Test Item Value Reference Range Interpretation Comments ALT (test code = ALT) 17.0 See_Comment N [Auto mated message] The system which ge nerated this result transmit saran reference range : <=65. The reference range was not used to interpr et this result as justina l/abnormal. [facility] CenterLdqzneuDEKOPJAFF9648-10-26 20:36:00 Test Item Value Reference Range Interpretation Comments Alk Phos (test code = Alk Phos) 71.0 39-136 N [facility] CenterJmwuhbkMCJNYZTFH5583-61-82 20:36:00 Test Item Value Reference Range Interpretation Comments Potassium Lvl (test code = Potassium 3.8 3.5-5.1 N Lvl) [facility] CenterEblgtphFALQFBCGJ2174-56-10 20:36:00 Test Item Value Reference Range Interpretation Comments Chloride Lvl (test code = Chloride Lvl) 100.0 95-109 N [facility] CenterCpzpgksGHWCHUFCE1523-15-82 20:36:00 Test Item Value Reference Range Interpretation Comments CO2 (test code = CO2) 22.0 24-32 L [facility] CenterDluxjfzPIAYTKSUN7929-67-68 20:36:00 Test Item Value Reference Range Interpretation Comments AGAP (test code = AGAP) 14.8 10.0-20.0 N [facility] CenterNraolkvBPMJSMYBF0382-37-51 20:36:00 Test Item Value Reference Range Interpretation Comments Calcium Lvl (test code = Calcium Lvl) 8.6 8.5-10.5 N [facility] CenterHiqduegBSBHCVBFT2271-84-53 20:36:00 Test Item Value Reference Range Interpretation Comments Sodium Lvl (test code = Sodium Lvl) 133.0 135-145 L [facility] CenterGuxltfzEPROWGDHX7376-66-70 20:36:00 Test Item Value Reference Range Interpretation Comments Globulin (test code = Globulin) 3.6 2.0-4.0 N [facility] CenterPfrxifiDJFVIYBYY9025-61-63 20:36:00 Test Item Value Reference Range Interpretation Comments A/G Ratio (test code = A/G Ratio) 1.1 1 0.7-1.6 N [facility] CenterTcdhftzNQZAJSMUJ6636-46-63 20:36:00 Test Item Value Reference Range Interpretation Comments B/C Ratio (test code = B/C Ratio) 11.0 1 6-25 N [facility] CenterDozddirMXWPYJWYN8917-29-91 20:36:00 Test Item Value Reference Range Interpretation Comments Total Protein (test code = Total 7.4 6.4-8.4 N Protein) [facility] CenterFcbvqprQJOIEZLJK6408-12-67 20:36:00 Test Item Value Reference Range Interpretation Comments Glucose Lvl (test code = Glucose Lvl) 478.0 A [facility] CenterGyhnbfhIFVEAVTMQ5348-00-68 20:36:00 Test Item Value Reference Range Interpretation Comments BUN (test code = BUN) 9.0 7-22 N [facility] CenterYebmoawJJTWFGOJE7443-75-41 20:36:00 Test Item Value Reference Range Interpretation Comments Creatinine Lvl (test code = Creatinine 0.8 0.5-1.4 N Lvl) [facility] CenterVfwhmjtFHSOEBNRN5949-23-28 20:36:00 Test Item Value Reference Range Interpretation Comments Troponin-I (test code no gt See_Comment N [Auto mated message] The = Troponin-I) system which g enerated this result transmit saran reference range : <=0.40. The reference r kehinde was not used to interpr et this result as justina l/abnormal. [facility] CenterXbbvyboZZDLGFDQW5826-74-78 20:36:00 Test Item Value Reference Range Interpretation Comments CK MB (test code = CK MB) no gt 0.5-3.6 N [facility] CenterSeqmaqaJZYIWOACH7401-64-62 20:36:00 Test Item Value Reference Range Interpretation Comments Total CK (test code = Total CK) 78.0 12-191 N [facility]NddwsguLDMIVCSYNG2960-27-32 20:36:00 Test Item Value Reference Range Interpretation Comments Monocytes # (test code 0.3 See_Comment N [Aut omated message] The = Monocytes #) system which generated this result tra nsmitted reference range : <=0.8. The reference r kehinde was not used to int erpret this result as normal/abnormal . [facility]IhezupiFNYFXWLJJY8010-39-24 20:36:00 Test Item Value Reference Range Interpretation Comments Lymphocytes # (test code = Lymphocytes 1.7 1.0-5.5 N #) [facility] ArlingtonSehytwwVHHGSCLGTW9350-68-54 20:36:00 Test Item Value Reference Range Interpretation Comments Segs-Bands # (test code = Segs-Bands #) 3.5 1.5-8.1 N [facility] ArlingtonLeasxbmURKYEGQOLV4870-52-93 20:36:00 Test Item Value Reference Range Interpretation Comments Basophils (test code = 0.9 See_Comment N [Aut omated message] The Basophils) system which ge nerated this result tra nsmitted reference range : <=1.0. The reference r kehinde was not used to int erpret this result as normal/abnormal . [facility] ArlingtonTdkgkyyUEMWOTPICY0356-33-16 20:36:00 Test Item Value Reference Range Interpretation Comments Eosinophils (test code = 0.9 See_Comment N [A utomated message] The Eosinophils) system which ge nerated this result tra nsmitted reference range : <=4.0. The reference r kehinde was not used to int erpret this result as normal/abnormal . [facility] ArlingtonRwtgltyOCTSQQVSIB2649-76-92 20:36:00 Test Item Value Reference Range Interpretation Comments Basophils # (test code 0.0 See_Comment N [Aut omated message] The = Basophils #) system which generated this result tra nsmitted reference range : <=0.2. The reference r kehinde was not used to int erpret this result as normal/abnormal . [facility] ArlingtonCmmtiyqHWAHGUUJXW5401-43-19 20:36:00 Test Item Value Reference Range Interpretation Comments Eosinophils # (test code 0.1 See_Comment N [A utomated message] The = Eosinophils #) system [facility] h generated this result tra nsmitted reference range : <=0.5. The reference r kehinde was not used to int erpret this result as normal/abnormal . [facility] ArlingtonQhdqvvaKLAZDFYPVK6857-57-11 20:36:00 Test Item Value Reference Range Interpretation Comments Lymphocytes (test code = Lymphocytes) 30.7 20.0-40.0 N [facility] ArlingtonNucdjafJQCVSAENVX3762-20-49 20:36:00 Test Item Value Reference Range Interpretation Comments Segs (test code = Segs) 63.0 45.0-75.0 N [facility] ArlingtonSdrovtpQEZZKXBKMC7564-03-51 20:36:00 Test Item Value Reference Range Interpretation Comments Monocytes (test code = Monocytes) 4.5 2.0-12.0 N [facility] ArlingtonLnkpptqXMQJZDIZMU0091-70-19 20:36:00 Test Item Value Reference Range Interpretation Comments RDW (test code = RDW) 14.6 11.5-14.5 H [facility] ArlingtonLxtdbsqGEOAZIYZNR4881-62-56 20:36:00 Test Item Value Reference Range Interpretation Comments MCHC (test code = MCHC) 34.0 32.0-36.0 N [facility] ArlingtonDlzshjeGZZWWEYHFS5448-53-22 20:36:00 Test Item Value Reference Range Interpretation Comments MPV (test code = MPV) 8.0 7.4-10.4 N [facility] ArlingtonQqywgqvWWIXTHTOQC2320-93-22 20:36:00 Test Item Value Reference Range Interpretation Comments Platelet (test code = Platelet) 231.0 133-450 N [facility] ArlingtonFawoxeeBIUPQVQWLY4244-98-49 20:36:00 Test Item Value Reference Range Interpretation Comments MCH (test code = MCH) 28.8 pg 27.0-31.0 N [facility] ArlingtonSorngsrUMHCOZZTJZ4401-04-64 20:36:00 Test Item Value Reference Range Interpretation Comments Hgb (test code = Hgb) 13.2 12.0-16.0 N [facility] ArlingtonIjhknjzPYDDOOHLFV3489-11-56 20:36:00 Test Item Value Reference Range Interpretation Comments RBC (test code = RBC) 4.6 4.20-5.40 N [facility] ArlingtonGihlwycCTZPYXTOVH7900-94-89 20:36:00 Test Item Value Reference Range Interpretation Comments Hct (test code = Hct) 38.9 36.0-48.0 N [facility] ArlingtonTztgxdlYGPGENNNVW2097-69-68 20:36:00 Test Item Value Reference Range Interpretation Comments MCV (test code = MCV) 84.6 81.0-99.0 N [facility] ArlingtonXznopoxFNMQJQGDPM6095-97-52 20:36:00 Test Item Value Reference Range Interpretation Comments WBC (test code = WBC) 5.6 3.7-10.4 N [facility] ArlingtonUqrgiunEHDRXYLQQI3116-69-12 20:36:00 Test Item Value Reference Range Interpretation Comments PT (test code = PT) 13.6 s 12.0-14.7 N [facility] ArlingtonQrzqjlzVIPTSNMOGB7428-60-44 20:36:00 Test Item Value Reference Range Interpretation Comments PTT (test code = PTT) 30.2 s 22.9-35.8 N [facility] ArlingtonBxcphyjGXPTIXLENW1546-59-29 20:36:00 Test Item Value Reference Range Interpretation Comments INR (test code = INR) 1.04 1 0.85-1.17 N [facility] ArlingtonSkbtnqqXKXFEMAPLD4004-97-11 20:36:00 Test Item Value Reference Range Interpretation Comments D-Dimer (test code = D-Dimer) 1.5 [facility]
[2021-06-23] MEDS ORDERED: BUPIVACAINE 0.5% PF 10 ML VIAL ONE (15:57)
--- NOTE | 2021-06-23 17:22 | RAD REPORT ---
EXAM DESCRIPTION: RAD - Foot Right 3 View - 06/23/2021 5:02 pm CLINICAL HISTORY: PAIN COMPARISON: Foot Right 3 View dated 09/29/2019; Foot Right 3 View dated 10/02/2018 FINDINGS: Moderate posterior and small plantar calcaneal spur. Cortical irregularity along the base of the distal phalanx of the great toe is suspicious for a nondisplaced fracture.
--- NOTE | 2021-06-23 17:44 | ER ---
Nurse's Notes [facility] Name: Melissa De Oliveira Age: 55 yrs Sex: Female : 1965 Arrival Date: 06/23/2021 Time: 15:22 Bed 19 Private MD: Diagnosis: Cellulitis of the Left Great Toe Presentation: 06/23 15:31 Chief complaint: Patient states: Tripped over a log one week ago and hurt right great ww big toe. Went to an urgent care a week ago and informed her to keep toe wrapped. Now toe is red, swollen and painful. Coronavirus screen: Vaccine status: Patient reports being unvaccinated. Client denies travel out of the [place] in the last 14 days. Ebola Screen: Patient denies travel to an Ebola-affected area in the 21 days before illness onset. Initial Sepsis Screen: Does the patient meet any 2 criteria? No. Patient's initial sepsis screen is negative. Does the patient have a suspected source of infection? No. Patient's initial sepsis screen is negative. Risk Assessment: Do you want to hurt yourself or someone else? Patient reports no desire to harm self or others. Onset of symptoms is unknown. 15:31 Method Of Arrival: Ambulatory ww 15:31 Acuity: DEYA 4 ww Triage Assessment: 15:33 General: Appears in no apparent distress. comfortable, Behavior is calm, cooperative. ww Pain: Complains of pain in Right first toenail. Neuro: Level of Consciousness is awake, alert, obeys commands, Oriented to person, place, time, situation, Speech is normal. Cardiovascular: Patient's skin is warm and dry. Respiratory: Airway is patent Respiratory effort is even, unlabored, Respiratory pattern is regular, symmetrical. GI: No signs and/or symptoms were reported involving the gastrointestinal system. : No signs and/or symptoms were reported regarding the genitourinary system. Musculoskeletal: Circulation, motion, and sensation intact. Swelling present in right first toe and Right first toenail. 16:20 Injury Description: Abrasion Laceration abscess s/t stumped R great toe. lr4 BRANCH LEAD: 15:33 LMP N/A - Post-menopause ww Historical: - Allergies: 15:33 Codeine; ww 15:33 Ritalin; ww 15:33 Tramadol HCl; ww - PMHx: 15:33 Diabetes - IDDM; neuropathy; Hypertensive disorder; ww - PSHx: 15:33 Cholecystectomy; Appendectomy; section; ww - Immunization history:: Adult Immunizations not up to date. - Social history:: Smoking status: Patient denies any tobacco usage or history of. Screenin:20 Abuse screen: Denies threats or abuse. Nutritional screening: No deficits noted. lr4 Tuberculosis screening: No symptoms or risk factors identified. Fall Risk None identified. Assessment: 16:17 General: Appears in no apparent distress. comfortable, Behavior is calm, cooperative. lr4 Pain: Complains of pain in right foot Pain currently is 10 out of 10 on a pain scale. Neuro: No deficits noted. Cardiovascular: No deficits noted. Respiratory: No deficits noted. Derm: Abscess located on right foot is quarter sized, has purulent drainage, is red, reddened R great toe. Vital Signs: 15:31 BP 158 / 90; Pulse 85; Resp 16; Temp 97.5; Pulse Ox 95% ; Weight 47.17 kg; Height 5 ft. ww 4 in. (162.56 cm); Pain 8/10; 18:27 BP 144 / 88; Pulse 81; Resp 18; Pulse Ox 98% on R/A; lr4 15:31 Body Mass Index 17.85 (47.17 kg, 162.56 cm) ww ED Course: 15:22 Patient arrived in ED. as 15:28 Irwin Vick PA is PHCP. [facility] 15:28 Yogesh Jimenez MD is Attending Physician. [facility] 15:33 Triage completed. ww 15:33 Arm band placed on left wrist. ww 15:51 Fannie Tony, KIRIT is Primary Nurse. lr4 16:20 Patient has correct armband on for positive identification. Bed in low position. Call lr4 light in reach. Door closed. Noise minimized. 16:20 No provider procedures requiring assistance completed. lr4 17:02 Foot Right 3 View In Process Unspecified. EDMS 17:43 Tremaine Renee DPM is Referral Physician. [facility] 18:27 Patient did not have IV access during this emergency room visit. lr4 Administered Medications: 15:48 CANCELLED (Duplicate Order): Marcaine (bupivacaine)-Epinephrine (0.5 %) 10 ml jmm Infiltration once; to bedside 15:55 Drug: Marcaine (bupivacaine) (0.5 %) 10 ml {Note: given by provider.} Volume: 10 ml; lr4 Route: Infiltration; 15:55 Follow up: Response: No adverse reaction lr4 Outcome: 16:20 Condition: good lr4 17:43 Discharge ordered by MD. anand 18:27 Discharged to home ambulatory. lr4 18:27 Discharge instructions given to patient. 18:28 Patient left the ED. lr4 Signatures: Dispatcher [employer] [facility] Irwin Vick PA PA jmm Martinez, Amelia as Wood, Whitney, RN RN ww Fannie Tony RN RN lr4 Corrections: (The following items were deleted from the chart) 16:56 16:12 In radiology for Foot Left 3 View+RAD.[email or web address]. EDVA EDMS
--- NOTE | 2021-06-23 17:44 | EDPHYS ---
Physician Documentation [facility] Name: Melissa De Oliveira Age: 55 yrs Sex: Female : 1965 Arrival Date: 06/23/2021 Time: 15: Bed 19 Private MD: ED Physician Yogesh Jimenez HPI: 06/23 15:38 This 55 yrs old Female presents to ER via Ambulatory with complaints of Foot Pain, Foot jmm Injury. 15:38 The patient presents with pain. Onset: The symptoms/episode began/occurred acutely, 1 jmm week(s) ago. Modifying factors: The symptoms are alleviated by nothing. the symptoms are aggravated by nothing. Associated signs and symptoms: Pertinent positives: swelling, Pertinent negatives fever. Is a 55-year-old female with history diabetes mellitus, hypertension that presents emerged part with complaints of left great toe swelling. Patient states she initially injured her foot approximately a week ago and was seen at urgent care. Patient is currently not taking antibiotics. States her blood sugars have been relatively normal with the highest of 150. Denies fever chills.. [employer]: 15:33 LMP N/A - Post-menopause ww Historical: - Allergies: 15:33 Codeine; ww 15:33 Ritalin; ww 15:33 Tramadol HCl; ww - PMHx: 15:33 Diabetes - IDDM; neuropathy; Hypertensive disorder; ww - PSHx: 15:33 Cholecystectomy; Appendectomy; section; ww - Immunization history:: Adult Immunizations not up to date. - Social history:: Smoking status: Patient denies any tobacco usage or history of. ROS: 15:38 Constitutional: Negative for fever, chills, and weight loss, Cardiovascular: Negative jmm for chest pain, palpitations, and edema, Respiratory: Negative for shortness of breath, cough, wheezing, and pleuritic chest pain. 15:38 MS/extremity: Positive for pain, swelling. 15:38 All other systems are negative. Exam: 15:38 Constitutional: This is a well developed, well nourished patient who is awake, alert, jmm and in no acute distress. Head/Face: atraumatic. Eyes: EOMI, no conjunctival erythema appreciated ENT: Moist Mucus Membranes Neck: Trachea midline, Supple Chest/axilla: Normal chest wall appearance and motion. Cardiovascular: Regular rate and rhythm. No edema appreciated Respiratory: Normal respirations, no respiratory distress appreciated Abdomen/GI: Non distended, soft Back: Normal ROM 15:38 Skin: Erythema erythema and induration noted surrounding the left great toe nail plate, dried purulent material noted.. 15:38 Neuro: Orientation: is normal, Mentation: is normal, Memory: is normal. 15:38 Psych: Behavior/mood is pleasant, cooperative. Vital Signs: 15:31 BP 158 / 90; Pulse 85; Resp 16; Temp 97.5; Pulse Ox 95% ; Weight 47.17 kg; Height 5 ft. ww 4 in. (162.56 cm); Pain 8/10; 18:27 BP 144 / 88; Pulse 81; Resp 18; Pulse Ox 98% on R/A; lr4 15:31 Body Mass Index 17.85 (47.17 kg, 162.56 cm) ww MDM: 15:38 Patient medically screened. [facility] 17:35 Data reviewed: vital signs, nurses notes. Counseling: I had a detailed discussion with [facility] the patient and/or guardian regarding: the historical points, exam findings, and any diagnostic results supporting the discharge/admit diagnosis, radiology results, the need for outpatient follow up. ED course: Patient is alert and non toxic in appearance in the ED. No signs of sepsis. Patient advised to follow up with podiatry and otherwise given strict return precautions. patient understood and agrees with the plan of care. . 03 16:49 Order name: Foot Right 3 View; Complete Time: 17:23 EDMS 03 17:41 Order name: Misc. Order: clean toe, bulky dressing; Complete Time: 18:27 [facility] Administered Medications: 15:48 CANCELLED (Duplicate Order): Marcaine (bupivacaine)-Epinephrine (0.5 %) 10 ml jmm Infiltration once; to bedside 15:55 Drug: Marcaine (bupivacaine) (0.5 %) 10 ml {Note: given by provider.} Volume: 10 ml; lr4 Route: Infiltration; 15:55 Follow up: Response: No adverse reaction lr4 Disposition: 06/24 18:27 Co-signature as Attending Physician, Yogesh Jimenez MD I agree with the assessment and [facility] plan of care. Disposition Summary: 06/23/21 17:43 Discharge Ordered Location: Home [facility] Condition: Stable [facility] Diagnosis - Cellulitis of the Left Great Toe jmm Followup: [facility] - With: Tremaine Renee DPM - When: 2 - 3 days - Reason: Recheck today's complaints, Continuance of care, Re-evaluation by your physician Discharge Instructions: - Discharge Summary Sheet jmm - Cellulitis, Adult jmm - Ingrown Toenail jm Forms: - Medication Reconciliation Form [facility] - Thank You Letter [facility] - Antibiotic Education [facility] - Prescription Opioid Use [facility] Prescriptions: - Doxycycline Hyclate 100 mg Oral Tablet - take 1 tablet by ORAL route every 12 hours; 20 tablet; Refills: 0, Product [facility] Selection Permitted - Cephalexin 500 mg Oral Capsule - take 1 capsule by ORAL route every 6 hours for 10 days; 40 capsule; Refills: 0, [facility] Product Selection Permitted Signatures: Dispatcher [employer] EDMS Yogesh Jimenez MD MD cha Mickail, Joel, PA PA jmm Wood, Whitney, RN RN ww Fannie Tony RN RN lr4 Corrections: (The following items were deleted from the chart) 06/23 15:48 15:47 Marcaine (bupivacaine)-Epinephrine (0.5 %) 10 ml Infiltration once; to bedside [facility] ordered. [facility] 16:56 15:47 Foot Left 3 View+RAD.RAD.BRZ ordered. EDNV EDMS
[2021-06-23 18:38] VITALS: TEMP 97.5
[2021-06-23 18:41] VITALS: BP 144/88; O2SAT 98
== END 2021-06-23 18:28 | disposition home or self-care (01) ==
LOC: ER 15:19
DX: L03.032 Cellulitis of left toe (principal); E11.9 Type 2 diabetes mellitus without complications; I10 Essential (primary) hypertension; Z88.5 Allergy status to narcotic agent; Z88.8 Allergy status to other drugs, medicaments and biological substances
CPT/HCPCS: 99283

== ENCOUNTER 2021-07-03 12:00 | Emergency (ER) | payer BC ==
--- OUTSIDE RECORDS SUMMARY | 2021-07-03 12:15 | XMS REPORT | Continuity of Care Document ---
:1965 Author Organization [facility] t Address [address] [place] [address] Care Team Providers Name Role Phone SHARPLESS Primary Care Physician Unavailable CAMILA Attending Clinician Unavailable MD CRYSTAL Attending Clinician Unavailable Julian Portillo Attending Clinician Unavailable UNKNOWN Attending Clinician Unavailable Wendy Li Attending Clinician Unavailable UCHE Attending Clinician Unavailable MD JESUS IVEY Attending Clinician Unavailable SOLITARIO CAT Attending Clinician Unavailable SOCO Attending Clinician Unavailable Joe Prieto Attending Clinician Doctor Unassigned, Name Attending Clinician [...] Source Date Date Healthcare Agents on N/A [facility]Name[facility] Agent Medical RelationshipCommunicationGriffin Hospital Branch PoehlsChildPrimary healthcare [phone] (Mobile) Lizz Rao alternate healthcare [phone] (Mobile) Problems Condition Condition Condition Status Onset Resolution Last Treating Co mments Source Name Details Category Date Date Treatment Clinician Date HURT TOES Diagnosis Active 2017-02-03 Memoria 12-27 10:25:00 l HURT 00:00: Jona TOES 00 Active 12/27/2016 [facility] Fatigue Fatigue Disease Active Univers 8-02 ity of 00:00: [place] [address] [facility] Weight Weight Disease Active Univers loss loss 8 ity of 00:00: [place] [address] [facility] Anemia, Anemia, Disease Active Univers unspecifie unspecifie 8- it y of d anemia d anemia 00:00: [place] type type 00 [facility] RLS RLS Disease Active Univers (restless (restless 11-13 ity of legs legs 00:00: [place] syndrome) syndrome) 00 [facility] Diabetes Diabetes Disease Active 2014-04 Unive rs 1.5, 1.5, 0-12 ity of managed [place] [address] [facility] ABDOMINAL Diagnosis Active 2011-042012-02-17 Memoria PAIN 0-26 10:42:00 l 00:00: Jona ABDOMINAL 00 PAIN Active 02/07/2012 [facility], [place] EGD Diagnosis Active 2011-042012-02-06 Mem oria 0-24 10:10:00 l EGD 06:00: Jona 00 Active 02/05/2012 [place] BLOOD Diagnosis Active 2011-12-11 Mem oria SUGAR 8-16 11:15:00 l PROBLEM BLOOD 15:00: [place] SUGAR 00 PROBLEM Active 11/28/2011 [place] LEFT LOWER Diagnosis Active 2011-12-11 Memoria ABDOMINAL 7-12 10:48:00 l PAIN LEFT 08:00: Jona LOWER 00 ABDOMINAL PAIN Active 10/24/2011 [place] ABDOMINAL Diagnosis Active 2011-12-11 Memoria PAIN HIGH 2-08 11:09:00 l BLOOD 22:00: Jona SUGAR ABDOMINAL 00 PAIN HIGH BLOOD SUGAR Active 05/22/2011 [place] BLEEDING/ Diagnosis Active 2011-12-11 Memoria RT SIDE - 11:06:00 l PAIN 08:00: Jona BLEEDING/ 00 RT SIDE PAIN Active 05/07/2011 [place] RIGHT Diagnosis Active 2011-12-20 Mem oria ABDOMINAL 1-06 13:03:00 l PAIN, RIGHT 00:00: Jona BLOOD IN ABDOMINAL 00 URINE PAIN, BLOOD IN URINE Active 04/19/2011 [place] RIGHTABDOM Diagnosis Active 2011-04-19 Memoria INAL PAIN 1-06 20:37:00 l . AND 00:00: [place] BLOOD IN RIGHTABDOM 00 URINE INAL PAIN . AND BLOOD IN URINE Active 04/19/2011 [place] LOWER ABD Diagnosis Active 2010-042011-12-11 Memoria PAIN/ HIGH 2-12 11:02:00 l SUGAR LOWER 00:00: [place] ABD PAIN/ 00 HIGH SUGAR Active 03/25/2011 [place] CHEST PAIN Diagnosis Active 2010-042011-02-11 Memoria AND 0-30 01:56:00 l TIGHTNESS CHEST 18:00: Jorge Luis n PAIN AND 00 TIGHTNESS Active 02/10/2011 [place] CHEST Diagnosis Active 2010-042011-02-15 Mem oria PAIN, 0-30 21:58:00 l DIZZINESS, CHEST 18:00: Eugenia nn HYPERGLYCE PAIN, 00 JENNIE, UTI DIZZINESS, HYPERGLYCE JENNIE, UTI Active 02/10/2011 [place] CHEST PAIN Diagnosis Active 2010-042011-01-15 Memoria 0-03 16:36:00 l CHEST 15:00: [place] PAIN 00 Active 01/14/2011 [place] RIGHT KNEE Diagnosis Active 2010-12-22 Memoria 1ST 3 TOES 9-10 13:04:00 l NUMB RIGHT 11:00: Jona KNEE 1ST 3 00 TOES NUMB Active 12/22/2010 [place] FACIAL Diagnosis Active 2010-12-22 Mem oria NECK - 13:04:00 l CELLULITIS FACIAL 00:00: Herm ava NECK 00 CELLULITIS Active 10/08/2010 [place] FACIAL AND Diagnosis Active 2010-12-22 Memoria NECK PAIN 6- 13:04:00 l FACIAL 06:00: [place] AND NECK 00 PAIN Active 10/07/2010 [place] SUGAR Diagnosis Active 2010-12-22 Mem oria HIGH,VAGIN 07-21 13:04:00 l AL SUGAR 00:00: [place] BLEEDING HIGH,VAGIN 00 AL BLEEDING Active 07/21/2010 [place] ABD PAIN Diagnosis Active 2010-12-22 M emoria 01-05 13:04:00 l ABD PAIN 00:00: Jorge Luis n 00 Active 01/05/2010 [place] EAR PAIN Diagnosis Active 2010-12-22 M emoria 10-09 13:04:00 l EAR PAIN 19:00: Jorge Luis n 00 Active 10/09/2009 [place] UPPER Diagnosis Active 2010-12-22 Mem oria ABDOMINAL 09-20 13:04:00 l PAIN UPPER 14:00: Jona ABDOMINAL 00 PAIN Active 09/20/2009 [place] ABD PAIN, Diagnosis Active 2010-12-22 Memoria HIGH SUGAR 5-04 13:04:00 l ABD 00:00: [place] PAIN, HIGH 00 SUGAR Active 08/15/2009 [place] Abdominal Problem Active 2012-02-19 Me moria pain 09:23:16 l [place] Abdominal pain Active Problem 02/19/2012 [facility] [place] Cellulitis Problem Active 2012-02-19 M emoria 09:23:16 l [place] Cellulitis Active Problem 02/19/2012 [facility] [place] Chest pain Problem Active 2012-02-19 M emoria 09:23:16 l Chest [place] pain Active Problem 02/19/2012 [facility] [place] Hyperglyce Problem Active 2012-02-19 M emoria jennie 09:23:16 l [place] Hyperglyce jennie Active Problem 02/19/2012 [facility] [place] UTI - Problem Active 2012-02-19 Memor ia Urinary 09:23:16 l tract UTI - [place] infection Urinary tract infection Active Problem 02/19/2012 [facility] [place] Diabetes Problem Active 2017-03-01 Mem oria mellitus 04:36:24 l (disorder) Diabetes He rmann mellitus (disorder) Active Problem 03/01/2017 [facility] Abdominal Problem Active 2017-03-01 Me moria pain 04:36:24 l (finding) [place] Abdominal pain (finding) Active Problem 03/01/2017 [facility] Chest pain Problem Active 2017-03-01 M emoria (finding) 04:36:24 l Chest [place] pain (finding) Active Problem 03/01/2017 [facility] [...] 13:04:00 l CHEST Jona PAIN NOS Active [place] CELLULITIS Diagnosis Active 2010-12-22 Memoria NOS 13:04:00 l Jona CELLULITIS NOS Active [place] History of Past Illness Condition Condition Condition Status Onset Resolution Last Treating Co mments Source Name Details Category Date Date Treatment Clinician Date Hyperglyce Problem 2016-042017-03-01 2017-03-01 Memoria jennie, - 04:36:24 04:36:24 l unspecifie 06:00: Jorge Luis n d Hyperglyce 00 jennie, unspecifie d 02/25/2017 03/01/2017 [facility] Fever, Problem 2016-042017-03-01 2017-03-01 M emoria unspecifie - 04:36:24 04:36:24 l d Fever, 06:00: Jona unspecifie 00 d 02/25/2017 03/01/2017 [facility] Radiculopa Problem 2016-042017-02-28 2017-02-28 Memoria thy, 1-14 05:26:25 05:26:25 l cervical 06:00: [place] region Radiculopa 00 thy, cervical region 02/25/2017 02/28/2017 [facility] Displaced Problem 2017-2016-12-30 2016-12-30 Memoria unspecifie - 05:13:20 05:13:20 l d fracture 05:00: Jorge [...] DA Active U seizures [facility] r[facility] 2- [place] 00:00: [facility] 00 [facility] Penicill DA Active U UNKNOWN [facility] ins - [place] 00:00: [address] codeine DA Active U UNKNOWN [facility] [place] 00:00: [address] methylph DA Active U UNKNOWN [facility] enidate 05-08 [place] 00:00: [address] METHYLPH Allergy Active [facility] [place] [id number] [facility] Metoclop Propensi Active Other - See Possible Univers ramide ty to comments 7-17 seizures ity of Hcl adverse 00:00: with [place] reaction 00 possible Medica l s extrapyra Branch midal side effects Tramadol Propensi Active Rash 2014-04 Univer s Hcl ty to 0-10 ity of adverse 00:00: [place] reaction 00 Medical s Branch Morphine Propensi Active Nausea Univer s ty to and/or 9-12 ity of adverse Vomiting 00:00: [place] reaction 00 Medical s to Branch drug CODEINE DA Active U URGENT 2001- [facility] [place] 00:00: [facility] 00 [facility] No Known DA Active U NA 2001- [facility] Contrast 09-20 [place] Allergie 00:00: [facility] No Known DA Active U NA 2001-0 [facility] Food 09-20 [place] Allergie 00:00: [facility] No Known DA Active U NA 2001-0 [facility] Other - [place] Allergie 00:00: [facility] PENICILL DA Active U 2001-0 [facility] IN 09-20 [place] 00:00: [address] Ritalin Ritalin Active mEmanuelle Tenorio Social History Social Habit Start Date Stop Date Quantity Comments Source Alcohol intake [facility] Sex Assigned At Universit y of [facility] History of Cigarette Smoker Universi ty of tobacco use [facility] Social History 2017-02-03 2017-02-03 [facility] hermila 15:24:44 15:24:44 Alcohol Comment 2015-11-13 2015-11-13 once or twice a Univ ersity of 00:00:00 00:00:00 year [facility] Smoking Status Start Date Stop Date Source Former smoker 2018-11-26 00:00:00 2018-11-26 00:00:00 Universi of [facility] Medications Ordered Filled Start Stop Current Ordering Indication Dosage Frequency Signature Comments Components Source Medication Medication Date Date Medication? Clinician (SIG) Name Name iohexol 2019- No 89mL 89 mL, Univers (OMNIPAQUE 11-26 Intravenou it y of 350 19:30: 19:05 s, ONCE, 1 [place] BULK-100 00 :00 dose, Ama Medica l mL) 11/26/18 at [place] injection 1430, 89 mL Routine cefTRIAXone 2018- No 1000mg 1,000 mg, Univers (ROCEPHIN) 11-26 IV ity of 1,000 mg in 19:15: 18:40 Piggyback, [place] NaCl 0.9% 00 :00 ONCE, 1 Medical [...] 1,000 mL 00 :00 IV Medical Infusion, [place] ONCE, 1 dose, Ama 11/26/18 at 1315, MACY ondansetron 2018- No 4mg 4 mg, Slow Univers (ZOFRAN 11-26 IV Push, ity of (PF)) 18:15: 17:32 ONCE, 1 [place] injection 4 00 :00 dose, Ama Med ical mg 11/26/18 at Branch 1315, MACY dicyclomine 2018- No 20mg 20 mg, Uni vers (BENTYL) 11-26 Intramuscu ity of injection 18:05: 18:10 lar, [...] 1215, MACY (COMPOUNDED ) cefpodoxime 2019- No [id number] 100mg Take 1 Univers 100 mg 11-26 tablet by ity of tablet 00:00: 04:59 mouth 2 [place] 00 :00 (two) Medical times Branch daily for 7 days. lactulose 2019- No [id number] 30mL Take 30 mL Univers 10 gram/15 [...] skin. [place] injection 37 Medical Branch pregabalin 2017-0 Yes 50mg Take 50 mg U nivers 50 mg 7-30 by mouth. ity of capsule 23:38: [place] 37 [facility] Branch rOPINIRole 2018-0 Yes 1mg Take 1 mg Un federico 1 mg tablet 7-30 by mouth. ity of 23:38: [address] insulin 2017-0 Yes inject Univers glargine 7-30 under the ity of 100 unit/mL 23:38: skin. [place] injection [address] [place] [address] pregabalin 2017-0 Yes 50mg Take 50 mg U nivers 50 mg 7-30 by mouth. ity of capsule 23:38: [address] rOPINIRole 2018-0 Yes 1mg Take 1 mg Un federico 1 mg tablet 7-30 by mouth. ity of 23:38: [address] dicyclomine 2018-0 Yes 20mg Take 1 Univ ers (BENTYL) 20 7-30 tablet by ity of mg tablet 00:00: mouth 4 [place] 00 ([facility]) Medical times Branch daily. dicyclomine 2018-0 Yes 20mg Take 1 Univ ers (BENTYL) 20 7-30 tablet by ity of mg tablet 00:00: mouth 4 [place] ([facility]) Medical times Branch daily. dicyclomine 2018-0 Yes 20mg Take 1 Univ ers (BENTYL) 20 7-30 tablet by ity of mg tablet 00:00: mouth 4 [place] 00 ([facility]) Medical times Branch daily. dicyclomine 2018-0 Yes 20mg Take 1 Univ ers (BENTYL) 20 7-30 tablet by ity of mg tablet 00:00: mouth 4 [place] ([facility]) Medical times Branch daily. GI cocktail 2016-04 [...] Weight 49.545 kg, Start date: 02/25/17 20:22:00 [employer], Stop date: 02/25/17 20:22:00 [employer] ibuprofen 2016-04 Yes 800 mg = 1 [...] Memoria 1-14 (Same as: l 05:48: Valium) Jona Ketorolac 2016-04 No 4 days Memor ia 1-14 l 05:48: MEDICATION [place] 00 WASTE Product Size: 30 mg Product Wasted: ___ mg Ciprofloxac 2016-04 Yes 500 mg = 1 Memoria in 500 MG 0-15 tab, PO, l Oral Tablet 14:57: Q12H, for H ermann [Cipro] 00 UTI, X 3 day, # 6 tab, 0 Refill(s), Pharmacy: [id number] Humalog 100 2016-04 Yes 4 unit, Mem oria units/mL 0-15 SUB-Q, l 14:48: TID-Before [place] 00 Meals, hold insulin injection if your blood sugar is less than 140 mg/dL., # 10 mL, 0 Refill(s), Pharmacy: [id number] pantoprazol 2016-04 Yes 40 mg = 1 M emoria e 40 MG 0-15 tab, PO, l Enteric 14:48: Daily, # Jorge Luis n Coated 00 30 tab, 0 Tablet Refill(s), [Protonix] Pharmacy: [id number] Calcium 2016-04 Yes 500 mg = 1 Nirmal feliz Carbonate 0-15 tab, PO, l 500 MG 14:48: TID, # 6 [place] Chewable 00 tab, 0 Tablet Refill(s), Pharmacy: [id number] Insulin 2016-04 Yes 15 unit, Memori a Glargine 0-15 SUB-Q, l 100 UNT/ML 14:48: Daily, # Her pugh Injectable 00 10 mL, 0 Solution Refill(s), [Lantus] Pharmacy: [id number] Calcium 2016-04 No Notes: Memoria Gluconate [...] Memoria 0-15 (Same as: l 02:00: Lyrica) [place] 00 Calcium 2016-04 No Notes: Memoria [...] 22:00: Mag-Ox Jona 00 400) Magnesium oxide 543wf=267w g elemental magnesium Dose=____m g magnesium oxide (___mg elemental magnesium) Ketorolac 2016-04 No 4 days Memor ia 0-14 l 17:02: MEDICATION [place] WASTE Product Size: 30 mg Product Wasted: [...] Duration: 30 day, Stop date: 02/24/17 0:34:00 [employer] Insulin 2016-04 No 60 Memoria Lispro 0-14 units) l 06:35: WASTE: F/P Jona - Black; E - [employer] Trash Bin Stable for 28 days at room temperatur e. Expires in days from ____Date Dextrose 2016-04 No 25 gm, 50 Nirmal feliz 50% Syringe 0-14 mL, Route: l 06:35: IVP, Drug Form: INJ, Dosing Weight 51.449, kg, PRN, PRN Blood Glucose Results, Start date: 01/25/17 1:35:00 CDT, Duration: 30 day, Stop date: 02/24/17 0:34:00 [employer] Acetaminoph 2016-04 No Notes: Do M emoria en 0-14 not exceed l 06:32: 4 gm/day. [place] (Same as: Tylenol) Acetaminoph 2016-04 No Notes: Nirmal feliz en 325 MG / 0-14 (Same as: l Hydrocodone 06:32: [place] Eugenia nn Bitartrate 00 325/5) Do 5 MG Oral not exceed Tablet 4gm/day of acetaminop hen. Ondansetron 2016-04 No Notes: Nirmal feliz 0-14 (Same as: l 06:32: Zofran) MEDICATION WASTE Product Size: 4 mg Product Wasted: ___ mg sodium 2016- No 1,000 mL, Memori a chloride 0-14 Rate: 75 l 0.9% 1000 06:32: ml/hr, Jorge Luis n ml INJ 00 Infuse 1,000 mL over: 13.3 hr, Route: IV, Dosing Weight 51.449 kg, Total Volume: 1,000, Start date: 01/25/17 1:32:00 CDT, Stop date: 02/24/17 1:31:00 [employer] Saline 2016- No Notes: Memoria Flush 0.9% 0-14 (Same as: l 06:32: BD [place] 00 Posiflush) Ketorolac 2016-04 No 15 mg, Memori a 0-14 Route: IV, l 05:00: ONCE, [place] 00 Dosing Weight 52.273, kg, Start date: 01/25/17 0:00:00 CDT, Stop date: 01/25/17 0:00:00 CDT Famotidine 2016-04 No 20 mg, Memor ia 0-14 Route: l 05:00: IVP, ONCE, Dosing Weight 52.273, kg, Priority: STAT, Start date: 01/25/17 0:00:00 CDT, Stop date: 01/25/17 0:00:00 CDT Sodium 2016- No 3,000 mL, Memori a Chloride 0-14 [...] times, Stop date: 01/24/17 22:09:00 CDT Zofran 2016- No 4 mg, Memoria 0-14 Route: l [...] / 12-27 (Same as: l Hydrocodone 04:47: [place] Eugenia nn Bitartrate 00 325/5) Do 5 MG Oral not exceed Tablet 4gm/day of [[place] acetaminop 5/325] hen. Sodium No Vimi 500 mL, Memoria Chloride 11-28 Roche Rate: 500 l 0.9% 03:47: ml/hr, [place] (Bolus) IV 00 Infuse 500 mL over: 1 hr, Route: IV, Dosing Weight 50 kg, Total Volume: 500, Bolus Dose, Priority: STAT, Start date: 11/28/11 22:47:00, Duration: 1 doses or times, Stop date: 11/28/11 23:46:00 NovoLog Yes Substituti Nirmal feliz 11-28 on Allowed l 03:29: [place] 17 Insulin No Vimi 7 unit, Memoria regular 11-28 Roche Route: l 02:51: IVP, ONCE, Jona 00 Dosing Weight 50, kg, Priority: STAT, Start date: 11/28/11 21:51:00, Stop date: 11/28/11 21:51:00 ketorolac No Vimi 30 mg, Memori a 11-28 Roche Route: l 02:51: IVP, Drug form: INJ, ONCE, Dosing Weight 50, kg, Priority: STAT, Start date: 11/28/11 21:51:00, Stop date: 11/28/11 21:51:00 ondansetron 2011- No Vimi 4 mg, Memor ia 11-28 Roche Route: l 02:51: IVP, ONCE, Jona 00 Dosing Weight 50, kg, Priority: STAT, Start date: 11/28/11 21:51:00, Stop date: 11/28/11 21:51:00 Sodium 2011- No Vimi 1,000 mL, Memori a Chloride 11-28 Roche Rate: l 0.9% 02:51: 1,000 [place] (Bolus) IV 00 ml/hr, 1,000 mL [...] Duration: 30 day, Stop date: 12/28/11 21:50:00 [place] 5/325 2011- Yes Juan 1-2 tab, M emoria oral tablet 7-13 Mesha PO, Q4-6H, l 06:12: Yeaton PRN, 15 [place] 25 tab, Pain, Substituti on Allowed, [...] Mesha Rate: l 0.9% 03:06: Yeaton 1,000 Jona [...] Roche 100 mL, l 05:47: Route: IV, Drug form: INJ, ONCE, Start date: 05/22/11 23:47:00, Stop date: 05/22/11 23:47:00 Insulin 2011- No Vimi 5 unit, Memoria regular 2-09 Roche 0.05 mL, l 05:36: Route: Jona SUB-Q, Drug form: SOLN, ONCE, Priority: STAT, [...] 2-09 Roche Rate: l 0.9% 05:04: 1,000 [place] (Bolus) IV 00 ml/hr, 500 mL Infuse over: 0.5 hr, Route: IV, Total Volume: 500, Bolus dose, Priority: STAT, Start date: 05/22/11 23:04:00, Duration: 1 doses or times, Stop date: 05/22/11 23:33:00 Saline 2011- No Vimi 5 ml, Memoria Flush 0.9% 05-23 [facility] Route: l 05:04: IVP, Drug Form: INJ, [...] 1-25 Raulito tab, l 02:03: Route: PO, [place] 00 Drug form: TAB, ONCE, Priority: STAT, Start date: 05/07/11 20:03:00, Stop date: 05/07/11 20:03:00 Cipro 2011-0 No Sonal 500 mg, 2 Memor ia 1-25 Raulito tab, l 02:03: Route: PO, Drug form: TAB, ONCE, Priority: STAT, Start date: 05/07/11 20:03:00, Stop date: 05/07/11 20:03:00 Cipro 500 0 Yes Juan 500 mg, 1 Me moria mg oral - Mesha tab, PO, l tablet 06:55: Yeaton BID, 20 Jorge Luis n 31 tab, Substituti on Allowed Zofran ODT Yes Juan 4 mg, 1 Mem oria 4 mg oral - Mesha tab, PO, l tablet, 06:55: Yeaton TID, PRN, Her pugh disintegrat 29 10 tab, ing Nausea and Vomiting, Substituti on Allowed [place] Yes Juan 1 tab, PO, Memor ia 10/325 oral -07 Mesha Q4-6H, l tablet 06:55: Yeaton PRN, 24 Jorge Luis n 26 tab, as needed for pain, Substituti on Allowed, Maintenanc e hydromorpho 2011- No Juan 1 mg, 0.5 Memoria ne 07 Mesha mL, Route: l 05:38: Yeaton IVP, Drug Jorge Luis n 00 form: INJ, ONCE, Priority: STAT, Start date: 04/19/11 23:38:00, Stop date: 04/19/11 23:38:00 Insulin 2011- No Juan 10 unit, Memor ia regular 04-20 Mesha 0.1 mL, l 05:31: Yeaton Route: [place] 00 IVP, Drug form: SOLN, ONCE, Priority: STAT, Start date: 04/19/11 23:31:00, Stop date: 04/19/11 23:31:00 Sodium 2011-0 No Juan 1,000 mL, Memor ia Chloride 04-20 Mesha Rate: l 0.9% 03:30: Yeaton 1,000 [place] (Bolus) IV 00 ml/hr, 1,000 mL [...] No Juan 4 mg, Nirmal feliz 04-20 Mesha Route: l 03:30: Yeaton IVP, ONCE, Eugenia nn 00 Priority: STAT, Start date: 04/19/11 21:30:00, Stop date: 04/19/11 21:30:00 ketorolac 2011-0 No Juan 30 mg, Memor ia 07 Mesha Route: l 03:30: Yeaton IVP, ONCE, Eugenia nn 00 Priority: STAT, Start date: 04/19/11 21:30:00, Stop date: 04/19/11 21:30:00 hydromorpho 2011- No Juan 1 mg, Nirmal feliz ne 04-20 Mesha Route: l 03:30: Yeaton IVP, ONCE, Eugenia nn 00 Priority: STAT, Start date: 04/19/11 21:30:00, Stop date: 04/19/11 21:30:00 magnesium 2010-04 Yes Mila 150 ml, Me moria citrate 2-13 [place] PO, ONCE, l 8.85% oral 05:57: 300 ml, Herm ava liquid 30 Substituti on Allowed, Maintenanc e, LIQ MiraLax 2010-04 Yes Mila 17 gm, PO, M emoria oral powder 2-13 [place] Daily, 255 l for 05:57: gm, [place] reconstitut 18 Substituti ion on Allowed, PDR/REC Phenergan 2010-04 Yes Mila 25 mg, 1 M emoria 25 mg oral 2-13 [place] tab, PO, l tablet 05:57: Q6H, PRN, Jorge Luis n 09 15 tab, Nausea, Substituti on Allowed Vicodin 2010-04 Yes Mila 1 tab, PO, M emoria 5/500 oral 2-13 [place] Q4-6H, l tablet 05:57: PRN, 24 [place] 05 tab, for Pain, Substituti on Allowed, Maintenanc e Sodium 2010-04 No Mila 1,000 mL, Mem oria Chloride 2-13 Zay Phelps Rate: l 0.9% 03:24: 1,000 [place] (Bolus) IV 00 ml/hr, 1,000 mL Infuse over: 1 hr, Route: IV, Total Volume: 1,000, Bolus Dose, Priority: STAT, Start date: 03/25/11 21:24:00, Duration: 1 doses or times, Stop date: 03/25/11 22:23:00 Insulin 2010-04 No Mila 10 unit, Mem oria regular 2-13 [place] 0.1 mL, l 03:16: Route: [place] 00 IVP, Drug form: SOLN, ONCE, Priority: STAT, Start date: 03/25/11 21:16:00, Stop date: 03/25/11 21:16:00 Omnipaque 2010-04 Yes Mila 30,000 mg, Memoria 300 2-13 [place] 100 mL, l 03:15: Route: IV, [...] No Mila 4 mg, 2 Memoria 2-13 [place] mL, Route: l 02:19: IVP, Drug [...] PO, Herm ava 00 Drug form: TAB, [id number], Start date: 02/11/11 11:00:00, Duration: 30 day, [...] PO, l tablet 11:36: [place] BID, 6 [place] 36 tab, Substituti on Allowed Cipro 2010-04 No Dk 250 mg, 1 Memori a 0-31 Ari tab, l 08:00: Jonathan Route: PO, Herm ava 00 Drug form: TAB, [id number], Start date: 02/11/11 3:00:00, Duration: 30 day, [...] SL Tab 0-31 Ari tab, l 07:05: Jontahan Route: SL, Herm ava 00 Drug form: [...] Memoria en 0-31 Ari tab, l 07:05: [place] Route: [...] Shauna mL, Route: l 05:37: IVP, Drug [place] 00 form: INJ, ONCE, Priority: STAT, Start date: 02/11/11 0:37:00, Stop date: 02/11/11 0:37:00 Visipaque 2010-04 No Penelope S 48,000 mg, Memoria 0-31 Shauna 150 mL, l 04:55: Route: IV, [place] 00 Drug form: INJ, ONCE, Start date: 02/10/11 23:55:00, Stop date: 02/10/11 23:55:00 Zofran 2010-04 No Penelope S 4 mg, 2 Memori a 0-31 Shauna mL, Route: l 04:28: IVP, Drug Jona 00 form: INJ, ONCE, Start date: 02/10/11 23:28:00, Stop date: 02/10/11 23:28:00 Cipro 2010-04 No Penelope S 400 mg, Memoria 0-31 Shauna Route: l 04:08: IVPB, [place] 00 ONCE, Priority: STAT, Start date: 02/10/11 23:08:00, Stop date: 02/10/11 23:08:00 Insulin 2010-04 No Penelope S 10 unit, Nirmal feliz regular 0-31 Shauna Route: l 03:56: SUB-Q, [place] 00 ONCE, Priority: STAT, Start date: [...] Shauna Route: PO, l 02:47: Drug form: [place] TAB, ONCE, (Hold if SBP < = 90 mmHg or if < = 100mmHg with symptomati c dizziness, or if HR < = 55), Start date: 02/10/11 21:47:00, Stop date: 02/10/11 21:47:00 nitroglycer 2010-04 No Penelope S 0.5 inch, Memoria in 2% 0-Shauna Route: l ointment 02:47: TOP, Drug Form: [...] Penelope S 2 mg, Memori a Sulfate 0- Shauna Route: l 02:47: IVP, ONCE, [place] 00 Priority: STAT, Start date: 02/10/11 21:47:00, [...] Victoriano tab, l 02:00: [place] Route: PO, [place] 00 Drug form: TAB, Bedtime, Start date: [...] 0.5 tab, l 15:36: Grace Route: PO, Jona 00 Drug form: TAB, [...] Victoriano Route: l 02:00: [place] IVP, Drug [place] 00 Form: INJ, Q12H, Start date: 01/14/11 21:00:00, Duration: 30 day, Stop date: 02/13/11 9:00:00 Levemir 2010-04 No [place] 70 unit, Nirmal feliz FlexPen 0-04 Minhvu Victoriano 0.7 mL, l 02:00: [place] Route: [place] 00 SUB-Q, Drug form: INJ, Bedtime, [...] Route: IM, l 00:22: [place] Drug form: [place] 00 PDR/INJ, PRN, PRN Blood Glucose [...] ml, Route: l 00:22: [place] IM, Drug [place] 00 Form: INJ, PRN, PRN Blood Glucose Results, Start date: 01/14/11 19:22:00, Duration: 30 day, Stop date: 02/13/11 19:21:00 Saline 2010-04 Beth Duncan 5 ml, Memoria Flush 0.9% 0-04 Minhvu Victoriano Route: l 00:21: [place] IVP, Drug [place] 00 Form: INJ, PRN, PRN Line Flush, Start date: 01/14/11 19:21:00, Duration: 30 day, Stop date: 02/13/11 19:20:00 nitroglycer 2010-04 No [place] 0.4 mg, 1 [facility] in [place] Tab 0-04 Minhvu Victoriano tab, l 00:21: [place] Route: SL, [place] 00 Drug form: TAB, Q5Min, PRN [...] Davis 150 mL, l 22:39: Route: IV, Jona 00 Drug form: INJ, ONCE, Start date: 01/14/11 [...] Davis Route: PO, l 22:08: Drug Form: [place] 00 SUSP, ONCE, Routine, Start date: 01/14/11 [...] Q4H, PRN, l tablet 18:32: 20 tab, [place] 59 Pain, Substituti on Allowed acetaminoph Yes Sonal 1 tab, PO, Memoria en-hydrocod 9-10 Raulito Q4-6H, l one 500 18:32: PRN, 20 [place] mg-5 mg 50 tab, Pain, oral tablet [...] 20:02:00 167 mm[Hg] [facility] Diastolic blood 2018-11-26 20:02:00 90 mm[Hg] [facility] Heart rate 2018-11-26 20:02:00 74 /min [facility] Respiratory rate 2018-11-26 20:02:00 18 /min [facility] Oxygen saturation in 2018-11-26 20:02:00 100 /min [facility] Arterial blood by [facility] Pulse oximetry Branch Body temperature 2018-11-26 16:31:00 36.83 Emma [facility] Body weight 2018-11-26 16:31:00 45.36 kg [facility] BMI 2018-11-26 16:31:00 17.16 kg/m2 [facility] Systolic blood 2018-11-26 20:02:00 167 mm[Hg] [facility] Diastolic blood 2018-11-26 20:02:00 90 mm[Hg] [facility] Heart rate 2018-11-26 20:02:00 74 /min [facility] Respiratory rate 2018-11-26 20:02:00 18 /min [facility] Oxygen saturation in 2018-11-26 20:02:00 100 /min [facility] Arterial blood by [facility] steven Pulse oximetry Branch Body temperature 2018-11-26 16:31:00 36.83 Emma [facility] Body weight 2018-11-26 16:31:00 45.36 kg [facility] BMI 2018-11-26 16:31:00 17.16 kg/m2 [facility] Systolic (mm Hg) 2017-02-26 06:50:00 Nirmal rial [place] Diastolic (mm Hg) 2017-02-26 06:50:00 Mem orial [place] Respitory Rate 2017-02-26 06:50:00 Memori al [place] Temperature Oral (F) 2017-02-26 06:50:00 97.6 F [facility] Heart Rate 2017-02-26 06:50:00 [facility] [place] Respitory Rate 2017-02-26 04:30:00 Memori al [place] Systolic (mm Hg) 2017-02-26 04:30:00 Nirmal rial [place] Diastolic (mm Hg) 2017-02-26 04:30:00 Mem orial [place] Heart Rate 2017-02-26 04:30:00 [facility] [place] Temperature Oral (F) 2017-02-26 00:55:00 98.8 F [facility] [place] Weight 2017-02-26 00:55:00 [facility] [place] BMI Calculated 2017-02-26 00:55:00 Memori al [place] Height 2017-02-26 00:55:00 162.56 cm [facility] [place] Systolic (mm Hg) 2017-02-26 00:55:00 Nirmal rial [place] Diastolic (mm Hg) 2017-02-26 00:55:00 Mem orial [place] Heart Rate 2017-02-26 00:55:00 [facility] [place] Respitory Rate 2017-02-26 00:55:00 Memori al [place] Respitory Rate 2017-02-25 07:35:00 Memori al [place] Systolic (mm Hg) 2017-02-25 07:35:00 Nirmal rial [place] Diastolic (mm Hg) 2017-02-25 07:35:00 Mem orial [place] Temperature Oral (F) 2017-02-25 07:35:00 98.2 F [facility] [place] Heart Rate 2017-02-25 07:35:00 [facility] [place] BMI Calculated 2017-02-25 05:05:00 [facility] al [place] Weight 2017-02-25 05:05:00 [facility] [place] Height 2017-02-25 05:05:00 162.56 cm [facility] [place] Heart Rate 2017-02-25 05:05:00 [facility] [place] Respitory Rate 2017-02-25 05:05:00 Memori al [place] Temperature Oral (F) 2017-02-25 05:05:00 97.8 F [facility] [place] Systolic (mm Hg) 2017-02-25 05:05:00 Nirmal rial [place] Diastolic (mm Hg) 2017-02-25 05:05:00 Mem orial [place] Weight 2017-02-25 04:55:00 [facility] [place] Height 2017-02-25 04:55:00 167.64 cm [facility] [place] Temperature Oral (F) 2017-02-25 04:55:00 97.8 F [facility] [place] BMI Calculated 2017-02-25 04:55:00 Memori al [place] Systolic (mm Hg) 2017-02-25 04:55:00 Nirmal rial [place] Diastolic (mm Hg) 2017-02-25 04:55:00 Mem orial [place] Respitory Rate 2017-02-25 04:55:00 Memori al [place] Heart Rate 2017-02-25 04:55:00 [facility] [place] Temperature Oral (F) 2017-01-26 16:47:00 98.5 F [facility] [place] Heart Rate 2017-01-26 16:47:00 [facility] [place] Respitory Rate 2017-01-26 16:47:00 Memori al [place] Systolic (mm Hg) 2017-01-26 16:47:00 Nirmal rial [place] Diastolic (mm Hg) 2017-01-26 16:47:00 Mem orial [place] Heart Rate 2017-01-26 12:26:00 [facility] [place] Respitory Rate 2017-01-26 12:26:00 Memori al [place] Temperature Oral (F) 2017-01-26 12:26:00 98.4 F [facility] [place] Systolic (mm Hg) 2017-01-26 12:26:00 Nirmal rial [place] Diastolic (mm Hg) 2017-01-26 12:26:00 Mem orial [place] Temperature Oral (F) 2017-01-26 09:50:00 98.1 F [facility] [place] Heart Rate 2017-01-26 09:50:00 [facility] [place] Systolic (mm Hg) 2017-01-26 09:50:00 Nirmal rial [place] Diastolic (mm Hg) 2017-01-26 09:50:00 Mem orial [place] Respitory Rate 2017-01-26 09:50:00 Memori al [place] Height 2017-01-25 05:58:00 157.48 cm [facility] [place] Weight 2017-01-25 05:58:00 [facility] [place] BMI Calculated 2017-01-25 05:58:00 Memori al [place] Weight 2017-01-25 02:01:00 [facility] [place] BMI Calculated 2017-01-25 02:01:00 Memori al [place] Height 2017-01-25 02:01:00 162.56 cm [facility] [place] Diastolic (mm Hg) 2016-12-27 06:03:00 Mem orial [place] Respitory Rate 2016-12-27 06:03:00 Memori al [place] Heart Rate 2016-12-27 06:03:00 [facility] [place] Temperature Oral (F) 2016-12-27 06:03:00 98.3 F [facility] [place] Systolic (mm Hg) 2016-12-27 06:03:00 Nirmal rial [place] Temperature Oral (F) 2016-12-27 04:22:00 98.4 F [facility] [place] Respitory Rate 2016-12-27 04:22:00 Memori al [place] Systolic (mm Hg) 2016-12-27 04:22:00 Nirmal rial [place] Diastolic (mm Hg) 2016-12-27 04:22:00 Mem orial [place] BMI Calculated 2016-12-27 04:22:00 Memori al [place] Weight 2016-12-27 04:22:00 [facility] [place] Heart Rate 2016-12-27 04:22:00 [facility] [place] Height 2016-12-27 04:22:00 162.56 cm [facility] [place] Height 2012-02-06 15:19:00 162.56 cm [facility] [place] Weight 2012-02-06 15:19:00 [facility] [place] Height 2011-11-29 02:35:00 162.56 cm [facility] [place] Weight 2011-11-29 02:35:00 [facility] [place] Height 2011-10-25 02:45:00 162.56 cm [facility] [place] Weight 2011-10-25 02:45:00 [facility] [place] Height 2011-05-23 04:48:00 162.56 cm [facility] [place] Weight 2011-05-23 04:48:00 [facility] [place] Temperature Oral (F) 2011-05-08 02:38:00 98.5 F [facility] [place] Diastolic (mm Hg) 2011-05-08 02:38:00 Mem orial [place] Systolic (mm Hg) 2011-05-08 02:38:00 Nirmal rial [place] Heart Rate 2011-05-08 02:38:00 [facility] [place] Respitory Rate 2011-05-08 02:38:00 Memori al [place] Weight 2011-05-08 00:09:00 [facility] [place] Height 2011-05-08 00:09:00 162.56 cm [facility] [place] Temperature Oral (F) 2011-05-08 00:09:00 98.6 F [facility] [place] Diastolic (mm Hg) 2011-05-08 00:09:00 Mem orial [place] Systolic (mm Hg) 2011-05-08 00:09:00 Nirmal rial [place] Heart Rate 2011-05-08 00:09:00 [facility] [place] Respitory Rate 2011-05-08 00:09:00 Memori al [place] Respitory Rate 2011-04-20 07:05:00 Memori al [place] Heart Rate 2011-04-20 07:05:00 [facility] [place] Diastolic (mm Hg) 2011-04-20 07:05:00 Mem orial [place] Systolic (mm Hg) 2011-04-20 07:05:00 Nirmal rial [place] Diastolic (mm Hg) 2011-04-20 06:01:00 Mem orial [place] Heart Rate 2011-04-20 06:01:00 [facility] [place] Systolic (mm Hg) 2011-04-20 06:01:00 Nirmal rial [place] Respitory Rate 2011-04-20 06:01:00 Memori al [place] Weight 2011-04-20 02:25:00 [facility] [place] Systolic (mm Hg) 2011-04-20 02:25:00 Nirmal rial [place] Temperature Oral (F) 2011-04-20 02:25:00 98.0 F [facility] [place] Respitory Rate 2011-04-20 02:25:00 Memori al [place] Heart Rate 2011-04-20 02:25:00 [facility] [place] Diastolic (mm Hg) 2011-04-20 02:25:00 Mem orial [place] Temperature Oral (F) 2011-03-26 06:05:00 98.0 F [facility] [place] Respitory Rate 2011-03-26 06:05:00 Memori al [place] Heart Rate 2011-03-26 06:05:00 [facility] [place] Systolic (mm Hg) 2011-03-26 06:05:00 Nirmal rial [place] Diastolic (mm Hg) 2011-03-26 06:05:00 Mem orial [place] Height 2011-03-26 01:58:00 160.02 cm [facility] [place] Weight 2011-03-26 01:58:00 [facility] [place] Temperature Oral (F) 2011-03-26 01:58:00 99.0 F [facility] [place] Diastolic (mm Hg) 2011-03-26 01:58:00 Mem orial [place] Systolic (mm Hg) 2011-03-26 01:58:00 Nirmal rial [place] Respitory Rate 2011-03-26 01:58:00 Memori al [place] Heart Rate 2011-03-26 01:58:00 [facility] [place] Diastolic (mm Hg) 2011-02-11 15:37:00 Mem orial [place] Respitory Rate 2011-02-11 15:37:00 Memori al [place] Systolic (mm Hg) 2011-02-11 15:37:00 Nirmal rial [place] Heart Rate 2011-02-11 15:37:00 [facility] [place] Temperature Oral (F) 2011-02-11 15:37:00 98.1 F [facility] [place] Diastolic (mm Hg) 2011-02-11 11:53:00 Mem orial [place] Systolic (mm Hg) 2011-02-11 11:53:00 Nirmal rial [place] Temperature Oral (F) 2011-02-11 11:53:00 97.5 F [facility] [place] Heart Rate 2011-02-11 11:53:00 [facility] [place] Respitory Rate 2011-02-11 11:53:00 Memori al [place] Height 2011-02-11 07:38:00 162.56 cm [facility] [place] Weight 2011-02-11 07:38:00 [facility] [place] Respitory Rate 2011-02-11 07:38:00 Memori al [place] Temperature Oral (F) 2011-02-11 07:38:00 98.0 F [facility] [place] Heart Rate 2011-02-11 07:38:00 [facility] [place] Systolic (mm Hg) 2011-02-11 07:38:00 Nirmal rial [place] Diastolic (mm Hg) 2011-02-11 07:38:00 Mem orial [place] Weight 2011-02-11 02:32:00 [facility] [place] Height 2011-02-11 02:32:00 162.56 cm [facility] [place] Diastolic (mm Hg) 2011-01-15 16:44:00 Mem orial [place] Systolic (mm Hg) 2011-01-15 16:44:00 Nirmal rial [place] Temperature Oral (F) 2011-01-15 16:44:00 97.0 F [facility] [place] Heart Rate 2011-01-15 16:44:00 [facility] [place] Respitory Rate 2011-01-15 16:44:00 Memori al [place] Temperature Oral (F) 2011-01-15 12:18:00 97.2 F [facility] [place] Respitory Rate 2011-01-15 12:18:00 Memori al [place] Heart Rate 2011-01-15 12:18:00 [facility] [place] Diastolic (mm Hg) 2011-01-15 12:18:00 Mem orial [place] Systolic (mm Hg) 2011-01-15 12:18:00 Nirmal rial [place] Respitory Rate 2011-01-15 09:30:00 Memori al [place] Systolic (mm Hg) 2011-01-15 09:30:00 Nirmal rial [place] Heart Rate 2011-01-15 09:30:00 [facility] [place] Temperature Oral (F) 2011-01-15 09:30:00 97.9 F [facility] [place] Diastolic (mm Hg) 2011-01-15 09:30:00 Mem orial [place] Height 2011-01-15 01:35:00 162.56 cm [facility] [place] Weight 2011-01-15 01:35:00 [facility] [place] Height 2011-01-14 20:07:00 162.56 cm [facility] [place] Weight 2011-01-14 20:07:00 [facility] [place] Systolic (mm Hg) 2010-12-22 18:51:00 Nirmal rial [place] Diastolic (mm Hg) 2010-12-22 18:51:00 Mem orial [place] Peripheral Pulse 2010-12-22 18:51:00 Nirmal rial [place] Rate Respitory Rate 2010-12-22 18:51:00 Memori al [place] Height 2010-12-22 16:57:00 162.56 cm [facility] [place] Weight 2010-12-22 16:57:00 [facility] [place] Temperature Oral (F) 2010-12-22 16:57:00 98.2 F [facility] [place] Respitory Rate 2010-12-22 16:57:00 Memori al [place] Peripheral Pulse 2010-12-22 16:57:00 Nirmal rial [place] Rate Diastolic (mm Hg) 2010-12-22 16:57:00 Mem orial [place] Systolic (mm Hg) 2010-12-22 16:57:00 Nirmal rial [place] Procedures Procedure Date / Time Performing Clinician Source Performed [id number] 2021-05-18 00:00:00 [facility] [place] [facility] [id number] 2021-05-18 00:00:00 [facility] [place] R [facility] [id number] 2021-05-17 00:00:00 [facility] [place] R [facility] [id number] 2021-05-17 00:00:00 [facility] [place] [facility] CT ABDOMEN PELVIS W 2018-11-26 19:21:58 Edgard Olsen [facility] CONTRAST [facility] XR CHEST 2 VW 2018-11-26 17:43:17 Edgard Olsen [facility] LIPASE 2018-11-26 17:28:00 Edgard Olsen [facility] TROPONIN I 2018-11-26 17:28:00 Edgard Olsen [facility] FREE T4 2018-11-26 17:28:00 Edgard Olsen [facility] THYROID STIMULATING 2018-11-26 17:28:00 Edgard Olsen [facility] HORMONE [facility] HEPATIC FUNCTION PANEL 2018-11-26 17:28:00 Edgard Olsen [facility] ([id number]) (ALB,T.PRO,BILI [facility] T,BU/BC,ALT,AST,ALK PHOS) BASIC METABOLIC PANEL (NA, 2018-11-26 17:28:00 Edgard Olsen [facility] K, CL, CO2, GLUCOSE, BUN, Medica l Branch CREATININE, [place]) CBC WITH DIFFERENTIAL 2018-11-26 17:28:00 [facility] / INR 2018-11-26 17:28:00 Edgard Olsen [facility] ACTIVATED PARTIAL THRMPLAS 2018-11-26 17:28:00 Edgard Olsen [facility] URINALYSIS 2018-11-26 17:28:00 Edgard Olsen [facility] N-TERMINAL PRO-BNP 2018-11-26 17:28:00 Edgard Olsen [facility] EKG-12 LEAD 2018-11-26 16:54:30 Edgard Olsen [facility] CONSENT/REFUSAL FOR 2018-11-26 16:18:12 Doctor Unassigned, [facility] DIAGNOSIS AND TREATMENT [place] [facility] Appendectomy [facility] Cholecystectomy [facility] Partial hysterectomy [facility] Encounters Start End Encounter Admission Attending Care Care Encounter Source Date/Time Date/Time Type Type Clinicians Facility Department ID 2021-03-24 Outpatient nullFlavo [id number] [facility] 02:56:19 [facility] 13 l [place] 2021-05-25 2021-05-28 Inpatient CAMILA [facility] [id number] [place] 00:00:00 00:00:00 CRUZ [id number] Method i 2021-05-09 2021-05-22 Inpatient EM Gabea, [facility] TELE [id number] [facility] 01:19:00 11:26:00 Ali [id number] [facility] 2021-05-09 2021-05-22 Inpatient EM Gabea, [facility] TELE [id number] [facility] 01:19:00 11:26:00 Ali 79 [facility] 2021-05-08 2021-05-08 Outpatient UNKNOWN HCANW REF [id number] [facility] 17:13:00 17:13:[id number] [facility] 2021-05-08 2021-05-08 Emergency EM Phil Li [facility] DEWAYNE [id number] [facility] 14:21:00 14:21:00 [id number] [facility] 2021-02-17 2021-02-20 Inpatient UCHE, [facility] [id number] [place] 00:00:00 00:00:00 MEDINA Koch Meth yu 2021-01-19 2021-01-19 Emergency ER CAT, [facility] Emergency [id number] [facility] 11:27:00 16:55:00 CHRISTINE 2021-01-19 2021-01-19 Emergency SOCO, [facility] [id number] [place] [address] 00:00:00 00:00:00 MESHA Patrick i 2018-11-26 2018-11-26 Emergency lashay, [facility] [id number] [facility] 11:32:46 15:11:00 Edgard Medley [id number] [facility] [place] [id number] [facility] [id number] [facility] 084 [place] 2018-11-26 2018-11-26 Emergency [facility] [id number] 11:32:46 15:11:00 Edgard Medley [id number] [place] 4.2.7.2.686 [place] [id number] [facility] 2018-11-26 2018-11-26 Orders Doctor MIKE [id number] Univers 00:00:00 00:00:00 Only Unassigned, [place]O [id number] ity of [place] [facility] 4.2.7.2.686 [place] [id number] [facility] 009 [place] 2018-11-26 2018-11-26 Orders Doctor RASHID [id number] 00:00:00 00:00:00 Only Unassigned, [place] [id number] [place] [facility] [id number] 2017-02-26 2017-02-26 Emergency [facility] [id number] Memoria 00:38:00 06:55:00 r Jona 03 [facility] 2017-02-25 2017-02-25 Emergency [facility] [id number] Memoria 04:49:00 07:35:00 ciera Tenorio 02 [facility] 2017-01-25 2017-01-26 Observatio [facility] [id number] Memoria 01:53:00 19:35:00 n ciera Tenorio 01 [facility] 2016-12-27 2016-12-27 Emergency nullFlavo [facility] [id number] Memoria 04:03:00 06:05:00 r [place] 00 l [facility] 2012-02-17 2012-02-17 Outpatient nullFlavo [id number] Memoria 10:40:00 10:40:00 [facility] 28 [facility] 2012-02-06 2012-02-06 YEIMY nullFlavo [id number] [facility] 09:48:00 13:40:00 [facility] 99 [facility] 2011-11-28 2011-11-28 Emergency nullFlavo [id number] Mem[facility] 21:26:00 23:53:00 r [facility] 27 [facility] 2011-10-24 2011-10-25 Emergency nullFlavo [id number] Memoria 21:32:00 01:46:00 r [facility] 26 [facility] 2011-05-22 2011-05-23 Emergency nullFlavo [id number] Mem[facility] 22:37:00 02:42:00 r [facility] 25 [facility] 2011-05-07 2011-05-07 Emergency nullFlavo [id number] [facility] 17:58:00 20:39:00 [facility] 24 [facility] 2011-04-19 2011-04-20 Emergency nullFlavo [id number] Mem[facility] 20:21:00 01:06:00 r [facility] 23 christiano [place] 2011-03-25 2011-03-26 Emergency nullFlavo [id number] Mem[facility] 19:49:00 00:20:00 [facility] 22 christiano [place] 2011-02-11 2011-02-11 OU nullFlavo [id number] [facility] 01:12:00 13:57:00 r [facility] 21 [facility] 2011-01-14 2011-01-15 OU nullFlavo [id number] [facility] 18:50:00 13:20:00 r [facility] 20 christiano [place] 2010-12-22 2010-12-22 Emergency nullFlavo [id number] Mem[facility] 11:48:00 13:53:00 r [facility] 19 christiano [place] 2010-10-09 2010-10-13 Inpatient nullFlavo [id number] [facility] 00:45:00 15:50:00 r [facility] 18 christiano [place] 2010-10-07 2010-10-07 Emergency nullFlavo [id number] [facility] 14:23:00 15:25:00 r [facility] 17 l [place] 2010-07-21 2010-07-21 Emergency nullFlavo [id number] [facility] 18:00:00 21:00:00 r [place] 16 l [place] 2010-01-05 2010-01-07 OU nullFlavo [id number] [facility] 17:26:00 11:00:00 r [facility] 14 [facility] 2010-01-03 2010-01-03 Emergency nullFlavo [id number] [facility] 13:17:00 17:38:00 r [place] 12 l [place] 2009-10-31 2009-11-02 OU nullFlavo [id number] [facility] 20:45:00 17:25:00 r [facility] 11 [facility] 2009-10-09 2009-10-09 Emergency nullFlavo [id number] [facility] 22:21:00 22:56:00 r [facility] 10 [facility] 2009-09-20 2009-09-21 Emergency nullFlavo [id number] Mem[facility] 21:40:00 03:42:00 r [place] 09 l [place] 2009-08-15 2009-08-16 Emergency nullFlavo [id number] Mem[facility] 21:04:00 01:02:00 r [facility] 08 [facility] Results Test Description Test Time Test Comments Results Result Comments Source SARS-CoV-2 (COVID-19) RNA [Presence] in Respiratory sp ecimen by 2021-05-25 20:28:41 RYAN with probe detection Test Item Value Reference Range Interpretation Comme nts SARS-CoV-2 (COVID-19) RNA [Presence] in Respiratory Not detected No t-Detected specimen by RYAN with probe detection (test code = 34263-6) CBC W/AUTO [id number] 09:38:00 Test Item Value Reference Range Interpretation [...] 0.00 K/mm3 0.0-0.05 N NRBC#) GLUCOSE BEDSIDE [id number] 22:16:00 Test Item Value Reference Range Interpretation Comments GLUCOSE BEDSIDE TESTING (test code 167 MG/DL 70-119 H = GLUBED) GLUCOSE BEDSIDE [id number] 21:26:00 Test Item Value Reference Range Interpretation Comments GLUCOSE BEDSIDE TESTING (test code 108 MG/DL 70-119 N = GLUBED) GLUCOSE BEDSIDE [id number] 15:57:00 Test Item Value Reference Range Interpretation Comments GLUCOSE BEDSIDE TESTING (test code 266 MG/DL 70-119 H = GLUBED) PLEURAL FLD CELL [id number] 15:10:00 Test Item Value Reference Range Interpretation [...] e also code = COMPL) concurrentcyto logy (E38-62) for ad ditional information. PATHOLOGIST: EVELYN MCCORMICK MD Entered by: [email or web address], on 05/18/21954. Specimen comments: RIGHT PLEURAL FLUID* DOES THIS SPECIMEN HAVE CYTO/PATH ORDERS ? NOPLEURAL FLD [id number] 15:10:00 Test Item Value Reference Range Interpretation Comments PLEURAL FLD PH 8.2 Not Estab. The reference interval(s) and (test code = PHPL) other met hod performance specificationsh ave not been established for this body fluid. The test result must beintegrated in to the clinical contex t for interpretation. Performed At: [facility] [id number] [place], [place] [id number] ra Rozina [place] Ph:[phone] Specimen comments: RIGHT PLEURAL FLUID* DOES THIS SPECIMEN HAVE CYTO/PATH ORDERS ? NOGLUCOSE BEDSIDE [id number] 10:51:00 Test Item Value Reference Range Interpretation Comments GLUCOSE BEDSIDE TESTING (test code 248 MG/DL 70-119 H = GLUBED) GLUCOSE BEDSIDE [id number] 07:00:00 Test Item Value Reference Range Interpretation Comments GLUCOSE BEDSIDE TESTING (test code 209 MG/DL 70-119 H = GLUBED) GLUCOSE BEDSIDE [id number] 20:51:00 Test Item Value Reference Range Interpretation Comments GLUCOSE BEDSIDE TESTING (test code 341 MG/DL 70-119 H = GLUBED) GLUCOSE BEDSIDE [id number] 15:24:00 Test Item Value Reference Range Interpretation Comments GLUCOSE BEDSIDE TESTING (test code 179 MG/DL 70-119 H = GLUBED) GLUCOSE BEDSIDE [id number] 10:45:00 Test Item Value Reference Range Interpretation Comments GLUCOSE BEDSIDE TESTING (test code 190 MG/DL 70-119 H = GLUBED) BASIC METABOLIC [id number] 07:54:00 Test Item Value Reference Range Interpretation [...] to interpret this result as normal/abnormal . [id number] 07:54:00 Test Item Value Reference Range Interpretation Comments MAGNESIUM (test code = MAG) 2.4 MG/DL 1.6-2.6 N CBC W/AUTO [id number] 07:27:00 Test Item Value Reference Range Interpretation [...] 0.00 K/mm3 0.0-0.05 N NRBC#) GLUCOSE BEDSIDE [id number] 06:27:00 Test Item Value Reference Range Interpretation Comments GLUCOSE BEDSIDE TESTING (test code 167 MG/DL 70-119 H = GLUBED) GLUCOSE BEDSIDE [id number] 19:47:00 Test Item Value Reference Range Interpretation Comments GLUCOSE BEDSIDE TESTING (test code 188 MG/DL 70-119 H = GLUBED) GLUCOSE BEDSIDE [id number] 18:14:00 Test Item Value Reference Range Interpretation Comments GLUCOSE BEDSIDE TESTING (test code 149 MG/DL 70-119 H = GLUBED) GLUCOSE BEDSIDE [id number] 15:59:00 Test Item Value Reference Range Interpretation Comments GLUCOSE BEDSIDE TESTING (test code = 66 MG/DL 70-119 L GLUBED) GLUCOSE BEDSIDE [id number] 15:21:00 Test Item Value Reference Range Interpretation Comments GLUCOSE BEDSIDE 44 MG/DL 70-119 LL LOW/HIGH JAN RT VALUE - TESTING (test ACTION REQUIRE DINTERPRETATION code = GLUBED) ALERT>Iterpre t whole blood glucose meter r esults <100 mg/dl withcauti on. Glucose results with e Jrlfx-is-Axxc meters havea ne gative bias. Glucose is 11% higher in plasma compared towhole blood. At glucose conc entrations <100 mg/dl, wholeblo od glucose results may be 15-35% lower. GLUCOSE BEDSIDE [id number] 10:31:00 Test Item Value Reference Range Interpretation Comments GLUCOSE BEDSIDE TESTING (test code 241 MG/DL 70-119 H = GLUBED) GLUCOSE BEDSIDE [id number] 06:50:00 Test Item Value Reference Range Interpretation Comments GLUCOSE BEDSIDE TESTING (test code 201 MG/DL 70-119 H = GLUBED) COMPREHENSIVE METABOLIC [id number] 06:27:00 Test Item Value Reference Range Interpretation [...] (test code = MG Index/DL The system [employer] HEMINDEX) generated this result transmit saran reference [...] to interpret this result as normal/abnormal . [id number] 06:27:00 Test Item Value Reference Range Interpretation Comments MAGNESIUM (test code = MAG) 2.1 MG/DL 1.6-2.6 N CBC W/AUTO [id number] 05:55:00 Test Item Value Reference Range Interpretation [...] 0.00 K/mm3 0.0-0.05 N NRBC#) GLUCOSE BEDSIDE [id number] 20:06:00 Test Item Value Reference Range Interpretation Comments GLUCOSE BEDSIDE TESTING (test code 262 MG/DL 70-119 H = GLUBED) - SP THORACENTESIS [id number] 17:11:00 [facility] : 1965 Sex: F Patient Name: HANANE PIEDRA Unit No: [id number] EXAMS: CPT CODE: [id number] SP THORACENTESIS W/IMAG 94688 EXAMINATION: IMAGE-GUIDED THORACENTESIS. LOCATION: T 18 HISTORY: Pleural effusion THERMOSPRAY OPERATOR: Medina Silvestre PA-C ASSISTED BY: None SEDATION: The patient did not require conscious sedation for the procedure. ANTIBIOTICS: None. Not indicated. CONTRAST: None. TECHNIQUE: The risks, benefits, and alternatives were discussed and informed consent was obtained. Prior to beginning the procedure, [place] Protocol was used to confirm the patient's [...] 10 milliliters. COMPLICATIONS: None. [facility] FINDINGS: Ultrasound demonstrated a moderate amount of pleural fluid. IMPRESSION: Successful image-guided left sided thoracentesis. PLAN: Post procedure chest radiograph will be obtained. at 1711 Reported and signed by: Agustin Torres MD [facility] NAME: HANANE PIEDRA Interventional Lab PHYS: MCDKAMedina Alston [address] [place] [address] : 1965 AGE:55 SEX: F [place], [place] [address] LOC: B.160 W PHONE #: EXAM DATE: 05/18/2021 STATUS: ADM IN FAX #: RAD #: D/C DT PAGE 1 Signed Report (CONTINUED) Patient Name: HANANE PIEDRA Unit No: [id number] EXAMS: CPT CODE: [id number] SP THORACENTESIS W/IMAG 82573 <Continued> CC:Mary Portillo MD; Medina ALBA; Jose Hernandez MD Dictated Date/Time: 05/18/2021 (171) Technologist: Breonna Calvert Fluoro Time: DAP (Gy m2): Air Kerma (mGy): Trnscrpt: 05/18/2021 (171) [email or web address] [facility] NAME: HANANE PIEDRA Interventional Lab PHYS: Medina Lott [address] [place] [address] : 1965 AGE: 55 SEX: Abr[place]rí[place] [address] LOC: B.160 W PHONE #: EXAM DATE: 05/18/2021 STATUS: ADM IN FAX #: RAD #: D/C DT PAGE 2 Signed ReportGLUCOSE BEDSIDE TESTING 2021-05-18 14:54:00 Test Item Value Reference Range Interpretation Comments GLUCOSE BEDSIDE TESTING (test code 204 MG/DL 70-119 H = GLUBED) - XR CHEST 1 [id number] 14:04:00 [facility] : 1965 Sex: F FAX: Mary Byrd MD [phone] [place]: C St: ADM FAX: Medina Silvestre FAX: Jose Valencia MD [phone] Patient Name: HANANE PIEDRA Unit No: [id number] EXAMS: CPT CODE: [id number] XRCHEST 1 V 76700 C3 EXAM: - XR CHEST 1 V DATE: 05/18/2021 1:12 PM HISTORY: Pleural effusion s/p left thora COMPARISON: Chest x-ray 05/17/2021 FINDINGS: Interval decrease in the leftpleural effusion with improvement in lung aeration. No pneumothorax. at 1404 Reported and signed by: Shruthi Fermin MD CC: Mary Portillo MD; Medina Silvestre PA; Jose Hernandez MD Dictated Date/Time: 05/18/2021 (1775)Technologist: Too Cabrera Transcribed Date/Time: 05/18/2021 (6084) By: Andrea Orig Print D/T: S: 05/18/2021 (8492) SOFI [place] NAME: HANANE PIEDRA MEDICAL IMAGING PHYS: [id number] - Medina Silvestre [address] [place] [address] : 1965 AGE: 55 SEX: Joe PUCKETT, [place] [address] LOC: B.160 W PHONE #: [phone] EXAM DATE: 05/18/2021 STATUS: ADM IN FAX #: [phone] RAD NO: DC Dt: PAGE 1 Signed ReportPLEURAL FLD [id number] 11:12:00 Test Item Value Reference Range Interpretation [...] 76 - 288 : : ___: : Michele WChristiano V. Reference Inter vals for Adults and Children 2007. Ninth edition (V9.1) [employer] [facility]ly [facility]; [place]: Ju ly 2008.The reference inter vals and [...] Specimen comments: RIGHT PLEURAL FLUIDPLEURAL FLD TOTAL [id number] 11:12:00 Test Item Value Reference Range Interpretation [...] - 0.9 : : ___: _: Michele WChristiano V. Ref erence Intervals for Adults and Children 2007. Ninth Edition (V9.1) [employer] , [facility]; [place]: [place] 2008.The method performa nce specifications [...] l/abnormal. Specimen comments: RIGHT PLEURAL FLUIDPLEURAL FLD [id number] 11:12:00 Test Item Value Reference Range Interpretation [...] Adults and Children 2007. Ninth Edition (V9.1) [employer], [facility]; [place]: [place] 2008.The reference inter vals and other method performa ncespecifications have not been e stablished for this test. Thet est result should be integrated i nto the clinical contextfor interpretation. Performed At: [facility] [address] [id number] Jose Lou MD Ph:[phone] [ Automated message] The [employer] stem which generated this result transmitted ref erence range: (). The reference r kehinde was not used to interpret th is result as normal/abnormal . Specimen comments: RIGHT PLEURAL FLUIDGLUCOSE BEDSIDE [id number] 10:15:00 Test Item Value Reference Range Interpretation Comments GLUCOSE BEDSIDE TESTING (test code 180 MG/DL 70-119 H = GLUBED) CYTOLOGY NON [id number] 08:40:00 Test Item Value Reference Range Interpretation Comments CYTOLOGY NON PUBLICATION DISTRIBUTOR (test code = CR) RUN DATE: 05/18/21 [place] - LAB PAGE 1 RUN TIME: 0840 Specimen Inquiry RUN USER: INTERFACE NERY ENT: HANANE PIEDRA LOC: ROLANDO U #: [id number] AGE/SX: 55/F ROOM: [facility] RE05/09/21REG DR: Mary Portillo MD : [birth year] BED: W DIS: STATUS: ADM IN TLOC: SPEC #: [id number] RECD: 05/17/21 STATUS: CARL[place] RE #: [id number] NARGIS: 05/17/21-[address]: Mary Portillo MD ENTERED: 05/17/21 SP TYPE: CYTO NGYN OTHR DR: Self Referred Anan Galdamez MD, Nitesh A MD Dasgupta MD,Gordon Carbajal MD,Al Escobar MD [place],Rylie Moreno MD, MDORDERED: 02622, 81852, ANATOMIC SPEC COPIES TO: Self Referred Anna Galdamez MD [address] [place] [address] Armen Davis MD [address] [facility] [place] [address] Mary Portillo MD [address] [place] [id number] Yi DALTON,Nery [address] [place] [id number] Gordon Garay MD [address] [facility] [address] [place] [address] CONTINUED ON NEXT PAGE RUN DATE: 05/18/21 [place] - LAB PAGE 2 RUN TIME: 0840 Specimen Inquiry RUN USER: INTERFACE SPEC #: [id number] PATIENT: TADEOHANANE #[id number] (Continued) ------- COPIES TO: (Continued) Al aPng MD [phone] Jose Hernandez MD [address] [place] [address]. [place] [address] Rylie Blackwood MD [address] [facility] [address] [place] [address] HISTOLOGY: TISSUE ID BLK PCS ROJAS LEV / PROCEDURE DISPOSITION ____ ___ ___ ___ ___ PLFLCS A 1 4 PROCEDURES: 39412 (05/17/21-1407) 16217 (05/18/21-0834) TISSUES: A. PLEURAL FLUID (CYTOSPIN,CELL BLOCK) [...] CLOUDY YELLOW fluid. Cytospins: 2Cell block: 1 [facility]/ec MICROSCOPIC DESCRIPTION A microscopic examination has been performed and the findings are incorporated in thefinal diagnosis. CONTINUED ON NEXT PAGE RUN DATE: 05/18/21 [place] - LAB PAGE 3 RUN TIME: 0840 Specimen Inquiry RUN USER: INTERFACE SPEC #: [id number] PATIENT: HANANE PIEDRA #[id number] (Continued) ------- CLINICAL INFORMATION Bilateral pleural effusions ----- Signed SIGNATURE ON FILE Lizzy Doe MD 05/18/21 0840 END OF REPORT GLUCOSE BEDSIDE [id number] 07:29:00 Test Item Value Reference Range Interpretation Comments GLUCOSE BEDSIDE TESTING (test code 173 MG/DL 70-119 H = GLUBED) COMPREHENSIVE METABOLIC [id number] 06:06:00 Test Item Value Reference Range Interpretation [...] (test code = MG Index/DL The system [employer] HEMINDEX) generated this result transmit saran reference [...] to interpret this result as normal/abnormal . [id number] 06:06:00 Test Item Value Reference Range Interpretation Comments MAGNESIUM (test code = MAG) 2.3 MG/DL 1.6-2.6 N CBC W/AUTO [id number] 06:02:00 Test Item Value Reference Range Interpretation [...] 0.00 K/mm3 0.0-0.05 N NRBC#) GLUCOSE BEDSIDE [id number] 20:38:00 Test Item Value Reference Range Interpretation Comments GLUCOSE BEDSIDE TESTING (test code 256 MG/DL 70-119 H = GLUBED) GLUCOSE BEDSIDE [id number] 16:06:00 Test Item Value Reference Range Interpretation Comments GLUCOSE BEDSIDE TESTING (test code 301 MG/DL 70-119 H = GLUBED) - SP THORACENTESIS [id number] 16:04:00 [facility] : 1965 Sex: F Patient Name: HANANE PIEDRA Unit No: [id number] EXAMS: CPT CODE: [id number] SP THORACENTESIS W/IMAG 11479 EXAMINATION: IMAGE-GUIDED THORACENTESIS. LOCATION: T 18 HISTORY: Pleural effusion THERMOSPRAY OPERATOR: Medina Silvestre PA-C ASSISTED BY: None SEDATION: The patient did not require conscious sedation for the procedure. ANTIBIOTICS: None. Not indicated. CONTRAST: None. TECHNIQUE: The risks, benefits, and alternatives were discussed and informed consent was obtained. Prior to beginning the procedure, [place] Protocol was used to confirm the patient's [...] Reported and signed by: Agustin Torres MD [facility] [place] NAME: HANANE PIEDRA Interventional Lab PHYS: Medina Lott [address] [place] [address] : 1965 AGE: 55 SEX: Joe [place] [address] LOC: B.160 W PHONE #: EXAM DATE: 05/17/2021 STATUS: ADM IN FAX #:RAD #: D/C DT PAGE 1 Signed Report (CONTINUED) Patient Name: HANANE PIEDRA Unit No: [id number] EXAMS: CPT CODE: [id number] SP THORACENTESIS W/IMAG 22308 <Continued> CC: Mary Portillo MD; Medina ALBA; Jose Hernandez MD Dictated Date/Time: 05/17/2021 (1604) Technologist: Preston Anne Time: DAP (Gy m2): Air Kerma (mGy): Trnscrpt: 05/17/2021 (1604) [email or web address] [facility] NAME: HANANE PIEDRA Interventional Lab PHYS: Medina Lott [address] [place] [address] : 1965 AGE: 55 SEX: Joe [place] [address] LOC: B.160 W PHONE #: EXAM DATE: 05/17/2021 STATUS: ADM IN FAX #: RAD #: D/C DT PAGE 2 Signed Report- XR CHEST 1 [id number] 15:26:00 [facility] : 1965 Sex: F FAX: Mary Byrd MD [phone] [place]: St: [facility] FAX: Medina Silvestre FAX: Jose Valencia MD [phone] Patient Name: HANANE PIEDRA Unit No: [id number] EXAMS: CPT CODE: [id number] XRCHEST 1 V 10901 CHEST 1 VIEW: INDICATION: s/p right thora [...] Annette Noel Transcribed Date/Time: 05/17/2021 (1526) By: [email or web address] Orig Print D/T: S: 05/17/2021 (1529) SOFI Puckett NAME: HANANE PIEDRA MEDICAL IMAGING PHYS: MCDCARLOS -SilvestreMedina cain [address] [place] [address] BLVD : 1965 AGE: 55 SEX: F [place] [address] LOC: B.160 W PHONE #: [phone] EXAM DATE: 05/17/2021 STATUS: ADM IN FAX #: [phone] RAD NO: DC Dt: PAGE 1 Signed ReportPATH COLLECTION REQ 2021-05-17 14:03:00 Test Item Value Reference Range Interpretation Comments PATH COLLECTION REQ PATH SPEC COLLECTED COLLECTED (test code = SPECIMEN PATHCOLLREQ) GLUCOSE BEDSIDE [id number] 11:22:00 Test Item Value Reference Range Interpretation Comments GLUCOSE BEDSIDE TESTING (test code 252 MG/DL 70-119 H = GLUBED) COMPREHENSIVE METABOLIC [id number] 08:40:00 Test Item Value Reference Range Interpretation [...] (test code = MG Index/DL The system [employer]EMINDEX) generated this result transmit saran reference [...] this result as normal/abnormal . CBC W/AUTO [id number] 08:33:00 Test Item Value Reference Range Interpretation [...] 0.00 K/mm3 0.0-0.05 N NRBC#) GLUCOSE BEDSIDE [id number] 08:12:00 Test Item Value Reference Range Interpretation Comments GLUCOSE BEDSIDE TESTING (test code 206 MG/DL 70-119 H = GLUBED) - XR CHEST 1 [id number] 08:01:00 [facility] : 1965 Sex: F FAX: Mary Byrd MD [phone] [place]: [facility]: [facility] FAX: Steven Norman [facility] [phone] FAX: Jose Valencia MD [phone] Patient Name: HANANE PIEDRA Unit No: [id number] EXAMS: CPT CODE: [id number] XRCHEST 1 V 85885 EXAM: - XR CHEST 1 VCLINICAL HISTORY: [...] Date/Time: 05/17/2021 (08)Technologist: LOLIS MARTINEZ Transcribed Date/Time: 05/17/2021(800) By: [email or web address] Orig Print D/T: S: 05/17/2021 (0804) SOFI P[place] NAME: HANANE PIEDRA MEDICAL IMAGING PHYS: FAIZANCH.Nick - Buck,Steven [address] : 1965 AGE: 55 SEX: F [place], [place] [address] LOC: B.160 W PHONE #: [phone] EXAM DATE: 05/17/2021 STATUS: ADM IN FAX #: [phone] RAD NO: DC Dt: PAGE 1 Signed ReportCovid 19 InHouse [id number] 22:33:00 Test Item Value Reference Range Interpretation Comments Covid 19 Negative Negative A negative resu lt does not InHouse NTX preclude the SA RS-COV-2 (test code = viralinfection and should not be [id number]) used as the so le basis forpatient [...] i ts performancechar acteristics were determined by [facility]. Thi s test has notbeen [...] defined by CDC? YesDate of Symptom Onset: [id number] due to COVID? NoIn ICU due toCOVID? NoResident in a congregate care setting? No? NoAge at collection: YGLUCOSE BEDSIDE [id number] 21:56:00 Test Item Value Reference Range Interpretation Comments GLUCOSE BEDSIDE TESTING (test code 314 MG/DL 70-119 H = GLUBED) GLUCOSE BEDSIDE [id number] 16:19:00 Test Item Value Reference Range Interpretation Comments GLUCOSE BEDSIDE TESTING (test code 331 MG/DL 70-119 H = GLUBED) VITAMIN [id number] 14:18:00 Test Item Value Reference Range Interpretation Comments VITAMIN B12 (test code = VITB12) 1258 PG/ML 183-986 H FOLIC [id number] 14:18:00 Test Item Value Reference Range Interpretation [...] to interpret this result as normal/abnormal . [id number] 14:07:00 Test Item Value Reference Range Interpretation Comments FERRITIN (test code = 351.8 NG/ML 3.0-105.0 H PREMEN OPAUSAL.....7-2 CARLOS) 83 NG/MLPOSTMENOPA USAL.. .14-233 NG/ML GLUCOSE BEDSIDE [id number] 11:19:00 Test Item Value Reference Range Interpretation Comments GLUCOSE BEDSIDE TESTING (test code 217 MG/DL 70-119 H = GLUBED) GLUCOSE BEDSIDE [id number] 08:21:00 Test Item Value Reference Range Interpretation Comments GLUCOSE BEDSIDE TESTING (test code 209 MG/DL 70-119 H = GLUBED) - XR CHEST 1 [id number] 07:26:00 [facility] : 1965 Sex: F FAX: Mary Byrd MD [phone] [place]: St: [facility] FAX: Steven Norman [facility] [phone] FAX: Jose Valencia MD [phone] Patient Name: HANANE PIEDRA Unit No: [id number] EXAMS: CPT CODE: [id number] XRCHEST 1 V 88749 - XR CHEST 1 V INDICATION:Pneumonia LOCATION: [...] Lu D.O. CC: Mary Portillo MD; Steven Jane; Jose Hernandez MD Dictated Date/Time: 05/16/2021 (725)Technologist: JONNY VEGA Transcribed Date/Time: 05/16/2021 (725) By: Teodora Orig Print D/T: S: 05/16/2021 (728) [facility] NAME: HANANE PIEDRA MEDICAL IMAGING PHYS: Steven Bradley [address] : 1965 AGE: 55 SEX: F [place], [place] [address] LOC: B.160 W PHONE #: [phone] EXAM DATE: 05/16/2021 STATUS: ADM IN FAX #: [phone] RAD NO: DC Dt: PAGE 1 Signed ReportCOMPREHENSIVE METABOLIC [id number] 04:37:00 Test Item Value Reference Range Interpretation [...] (test code = MG Index/DL The system [employer]) generated this result transmit saran reference [...] this result as normal/abnormal . CBC W/AUTO [id number] 03:28:00 Test Item Value Reference Range Interpretation [...] 0.00 K/mm3 0.0-0.05 N NRBC#) GLUCOSE BEDSIDE [id number] 21:02:00 Test Item Value Reference Range Interpretation Comments GLUCOSE BEDSIDE TESTING (test code 285 MG/DL 70-119 H = GLUBED) GLUCOSE BEDSIDE [id number] 15:21:00 Test Item Value Reference Range Interpretation Comments GLUCOSE BEDSIDE TESTING (test code 249 MG/DL 70-119 H = GLUBED) GLUCOSE BEDSIDE [id number] 11:34:00 Test Item Value Reference Range Interpretation Comments GLUCOSE BEDSIDE TESTING (test code 220 MG/DL 70-119 H = GLUBED) CBC W/AUTO [id number] 08:43:00 Test Item Value Reference Range Interpretation [...] CRITERIA (test code = MDIFF) DIFF/SCN DIFFERENTIAL [id number] 08:43:00 Test Item Value Reference Range Interpretation [...] RARE ON SCAN NONE BUR) GLUCOSE BEDSIDE [id number] 07:58:00 Test Item Value Reference Range Interpretation Comments GLUCOSE BEDSIDE TESTING (test code 239 MG/DL 70-119 H = GLUBED) COMPREHENSIVE METABOLIC [id number] 07:48:00 Test Item Value Reference Range Interpretation [...] (test code = MG Index/DL The system [employer]) generated this result transmit saran reference range [...] as normal/abnormal . - CTA CHEST FOR [id number] 00:01:00 [facility] : 1965 Sex: F Patient Name: HANANE PIEDRA Unit No: [id number] EXAMS: CPT CODE: [id number] [place] [address] Site ID: T18 CT angiogram of the [...] ROBERT CHAVEZ CTDI: DLP: Trnscrpt: 05/15/2021 (2065) [email or web address] SOFI Puckett NAME: HANANE PIEDRA MEDICAL IMAGING PHYS: ROBIN BuckSteven [address] : 1965 AGE: 55 SEX: F [place] [address] LOC: B.160 W PHONE #: [phone] EXAM DATE: 05/14/2021 STATUS: ADM IN FAX #: [phone] RAD #: D/C DT PAGE 1 Signed Report Patient Name: HANANE ZAMUDIO Unit No: [id number] EXAMS: CPT CODE: [id number] [place] [address] <Continued> Orig Print D/T: S: 05/15/2021 (0004) SOFI Puckett NAME: HANANE PIEDRA [facility] PHYS: ROBIN Jane[address] : 1965 AGE: 55 SEX: F [place] [address] LOC: B.160 W PHONE #: [phone] EXAM DATE: 05/14/2021 STATUS: ADM IN FAX #: [phone] RAD #: D/C DT PAGE 2 Signed [id number] 18:03:00 Test Item Value Reference Range Interpretation Comments D-DIMER (test 2567 FEUng/mL 0-500 H THE CUT-OFF V ALUE FOR code = DDIMER) EXCLUSION OF VTE = 500 FEU ng/mLNOTE: This method must be used with additional test s in theevaluation o f VTE and should not be u sed to exclude VTE wit hpretest probability efrain ne. GLUCOSE BEDSIDE [id number] 16:58:00 Test Item Value Reference Range Interpretation Comments GLUCOSE BEDSIDE TESTING (test code 143 MG/DL 70-119 H = GLUBED) GLUCOSE BEDSIDE [id number] 13:06:00 Test Item Value Reference Range Interpretation Comments GLUCOSE BEDSIDE TESTING (test code 151 MG/DL 70-119 H = GLUBED) GLUCOSE BEDSIDE [id number] 08:50:00 Test Item Value Reference Range Interpretation Comments GLUCOSE BEDSIDE TESTING (test code 174 MG/DL 70-119 H = GLUBED) [id number] 01:39:00 Test Item Value Reference Range Interpretation Comments MYOGLOBIN (test code = MYOG) 55 NG/ML 10-92 N GLUCOSE BEDSIDE [id number] 21:43:00 Test Item Value Reference Range Interpretation Comments GLUCOSE BEDSIDE TESTING (test code 263 MG/DL 70-119 H = GLUBED) [id number] 20:20:00 Test Item Value Reference Range Interpretation [...] change s in troponin levelscharacter istic of [place]. [id number] 20:20:00 Test Item Value Reference Range Interpretation Comments MYOGLOBIN (test code = MYOG) 61 NG/ML 10-92 N COVID 19 Asymptomatic IH [id number] 18:27:00 Test Item Value Reference Range Interpretation Comments COVID 19 Asymptomatic IH AG (test Negative Neg code = COVNONPUIAG) - XR CHEST 1 [id number] 16:33:00 [facility] : 1965 Sex: F FAX: Mary Byrd MD [phone] [place]: St: [facility] FAX: Steven Norman [phone] FAX: Jose Valencia MD [phone] Patient Name: HANANE PIEDRA Unit No: [id number] EXAMS: CPT CODE: [id number] XRCHEST 1 V 49213 LOCATION: T18 EXAM: CHEST 1 VIEW INDICATION: [...] Jane; Boston Hernandez MD Dictated Date/Time: 05/13/2021 (491)Technologist: Annette Noel Transcribed Date/Time: 05/13/2021 (795) By: [email or web address] Orig Print D/T: S: 05/13/2021 (2195) SOFI Puckett NAME: HANANE PIEDRA MEDICAL IMAGING PHYS: LEANNAFrancisNick - Steven Jane [address] : 1965 AGE: 55 SEX: F [place], [place] [address] LOC: B.254 W PHONE #: [phone] EXAM DATE: 05/13/2021 STATUS: ADM IN FAX #: [phone] RAD NO: DC Dt: PAGE 1 Signed ReportGLUCOSE BEDSIDE [id number] 16:07:00 Test Item Value Reference Range Interpretation Comments GLUCOSE BEDSIDE TESTING (test code 170 MG/DL 70-119 H = GLUBED) [id number] 15:54:00 Test Item Value Reference Range Interpretation [...] change s in troponin levelscharacter istic of [place]. CREATINE KINASE (CK)2021-05-13 15:03:00 Test Item Value Reference Range Interpretation Comments CREATINE KINASE (CK) (test code = 183 Unit/L 26-192 N CK) [id number] 15:02:00 Test Item Value Reference Range Interpretation Comments MYOGLOBIN (test code = MYOG) 66 NG/ML 10-92 N [id number] 15:02:00 Test Item Value Reference Range Interpretation [...] changes in trop onin levelscharacter istic of [place]. GLUCOSE BEDSIDE [id number] 11:41:00 Test Item Value Reference Range Interpretation Comments GLUCOSE BEDSIDE TESTING (test code 155 MG/DL 70-119 H = GLUBED) GLUCOSE BEDSIDE [id number] 07:42:00 Test Item Value Reference Range Interpretation Comments GLUCOSE BEDSIDE TESTING (test code 217 MG/DL 70-119 H = GLUBED) COMPREHENSIVE METABOLIC [id number] 06:31:00 Test Item Value Reference Range Interpretation [...] (test code = MG Index/DL The system [employer]EM[employer]) generated this result transmit saran reference [...] this result as normal/abnormal . CBC W/AUTO [id number] 06:15:00 Test Item Value Reference Range Interpretation [...] 0.00 K/mm3 0.0-0.05 N NRBC#) GLUCOSE BEDSIDE [id number] 21:11:00 Test Item Value Reference Range Interpretation Comments GLUCOSE BEDSIDE TESTING (test code 337 MG/DL 70-119 H = GLUBED) GLUCOSE BEDSIDE [id number] 17:44:00 Test Item Value Reference Range Interpretation Comments GLUCOSE BEDSIDE TESTING (test code 250 MG/DL 70-119 H = GLUBED) UA RFLX MICR CULT IF [id number] 13:12:00 Test Item Value Reference Range Interpretation [...] MG/DL 70-119 H = GLUBED) GLUCOSE BEDSIDE [id number] 08:17:00 Test Item Value Reference Range Interpretation Comments GLUCOSE BEDSIDE TESTING (test code 227 MG/DL 70-119 H = GLUBED) GLUCOSE BEDSIDE [id number] 22:06:00 Test Item Value Reference Range Interpretation Comments GLUCOSE BEDSIDE TESTING (test code 271 MG/DL 70-119 H = GLUBED) GLUCOSE BEDSIDE [id number] 17:33:00 Test Item Value Reference Range Interpretation Comments GLUCOSE BEDSIDE TESTING (test code 253 MG/DL 70-119 H = GLUBED) GLUCOSE BEDSIDE [id number] 12:34:00 Test Item Value Reference Range Interpretation Comments GLUCOSE BEDSIDE TESTING (test code 167 MG/DL 70-119 H = GLUBED) GLUCOSE BEDSIDE [id number] 08:13:00 Test Item Value Reference Range Interpretation Comments GLUCOSE BEDSIDE TESTING (test code 115 MG/DL 70-119 N = GLUBED) COMPREHENSIVE METABOLIC [id number] 07:02:00 Test Item Value Reference Range Interpretation [...] (test code = MG Index/DL The system [employer]EM[employer]) generated this result transmit saran reference [...] H (test code = GLYHGB) CBC W/AUTO [id number] 06:12:00 Test Item Value Reference Range Interpretation [...] 0.00 K/mm3 0.0-0.05 N NRBC#) GLUCOSE BEDSIDE [id number] 20:44:00 Test Item Value Reference Range Interpretation Comments GLUCOSE BEDSIDE TESTING (test code 132 MG/DL 70-119 H = GLUBED) GLUCOSE BEDSIDE [id number] 17:37:00 Test Item Value Reference Range Interpretation Comments GLUCOSE BEDSIDE TESTING (test code 129 MG/DL 70-119 H = GLUBED) GLUCOSE BEDSIDE [id number] 08:58:00 Test Item Value Reference Range Interpretation Comments GLUCOSE BEDSIDE TESTING 146 MG/DL 70-119 H Noti fied Nurse~ (test code = GLUBED) GLUCOSE BEDSIDE [id number] 22:36:00 Test Item Value Reference Range Interpretation Comments GLUCOSE BEDSIDE TESTING (test code 150 MG/DL 70-119 H = GLUBED) GLUCOSE BEDSIDE [id number] 16:44:00 Test Item Value Reference Range Interpretation Comments GLUCOSE BEDSIDE TESTING 210 MG/DL 70-119 H Noti fied Nurse~ (test code = GLUBED) GLUCOSE BEDSIDE [id number] 12:28:00 Test Item Value Reference Range Interpretation Comments GLUCOSE BEDSIDE TESTING 188 MG/DL 70-119 H Noti fied Nurse~ (test code = GLUBED) GLUCOSE BEDSIDE [id number] 08:27:00 Test Item Value Reference Range Interpretation Comments GLUCOSE BEDSIDE TESTING 185 MG/DL 70-119 H Noti fied Nurse~ (test code = GLUBED) - CT ABD PELVIS [id number] 00:56:00 [facility] : 1965 Sex: F Patient Name: HANANE PIEDRA Unit No: [id number] EXAMS: CPT CODE: [id number] CT ABD PELVIS W/CONT 22096 EXAM: CT ABDOMEN AND PELVIS WITH CONTRAST [...] fluid. IMPRESSION: SOFI Puckett NAME: HANANE PIEDRA [address] [place] [address] Blvd PHYS: [place], [place] [address] : 1965 AGE: 55 SEX:F LOC: B.ERS PHONE #: [phone] EXAM DATE: 05/09/2021 STATUS: REG ER FAX #: [phone] RAD #: D/C DT PAGE 1 Signed Report (CONTINUED) Patient Name: HANANE PIEDRA Unit No: [id number] EXAMS: CPT CODE: [id number] CT ABD PELVIS W/CONT 33694 <Continued> 1. Urinary bladder wall thickening and [...] MD CC: Yris ALBA Dictated Date/Time: 05/09/2021 (005) Technologist: HERB MCCRARY; DAYANA GARCIAS CTDI: 5.85 DLP: 303.44 Trnscrpt: 05/09/2021 (0056) FedericoEB14 SOFI Puckett NAME: HANANE PIEDRA [address] [place] [address] PHYS: [place] [address] : 1965 AGE: 55 SEX: F LOC: B.ERS PHONE #: [phone] EXAM DATE: 05/09/2021 STATUS: REG ER FAX #: [phone] RAD #: D/C DT PAGE 2 Signed Report Patient Name: HANANE PIEDAR Unit No: [id number] EXAMS: CPT CODE: [id number] CT ABD PELVIS W/CONT 13682 <Continued> Orig Print D/T: S: 05/09/2021 (0100) SOFI Puckett NAME: [address] PHYS: [place] [address] : 1965 AGE: 55 SEX: F LOC: B.ERS PHONE #: [phone] EXAM DATE: 05/09/2021 STATUS: REG ER FAX #: [phone] RAD #: D/C DT PAGE 3 Signed ReportCBC W/O [id number] 21:03:00 Test Item Value Reference Range Interpretation [...] AT 05/08/21 1956UA RFLX MICR CULT IF [id number] 16:35:00 Test Item Value Reference Range Interpretation [...] comments: CCIndication for culture: Suprapubic PainBASIC METABOLIC [id number] 15:56:00 Test Item Value Reference Range Interpretation [...] (test code = MG Index/DL The system [employer]) generated this result transmit saran reference range [...] as normal/abnormal . Specimen comments: CCHEPATIC FUNCTION [id number] 15:56:00 Test Item Value Reference Range Interpretation [...] 45-117 N code = ALKP) Specimen comments: [id number] 15:56:00 Test Item Value Reference Range Interpretation Comments LIPASE (test code = LIP) 144 Unit/L 114-286 N Specimen comments: [id number] 15:56:00 Test Item Value Reference Range Interpretation [...] change s in troponin levelscharacter istic of AR. Specimen comments: VLTIQE-AcU-5 (COVID-19) RNA [Presence] in Respiratory specimen by RYAN with probe [id number] 01:03:38 Test Item Value Reference Range Interpretation Comments SARS-CoV-2 (COVID-19) RNA Not detected Not-Detected [Presence] in Respiratory specimen by RYAN with probe detection (test code = 25325-0) Whether patient is employed in a healthcare setting (test code = 32929-2) Whether the patient has symptoms related to condition of interest (test code = 15175-8) Patient was hospitalized because of this condition (test code = 57335-3) Whether the patient was admitted to intensive care unit (ICU) for condition of interest (test code = 60044-3) Whether patient resides in a congregate care setting (test code = 54862-0) FREE [id number] 19:43:00 Test Item Value Reference Range Interpretation Comments FREE T4 (test code = See_Comment [Autom ated message] 3310092020) The system [employer] generated this result transmitted ref erence range: 0.78 - 2 .20 ng/dL:. The ref erence range was not u sed to interpret this result as normal/abnor mal. Lab Interpretation (test Normal code = 42010-2) [facility] [id number] 19:30:00CT Abdomen and Pelvis with intravenous contrast. [...] withhistory for prior appendectomy.2. Cholecystectomy and hysterectomy. [facility], Radiant Results Inft User - 11/26/2018 [...] withhistory for prior appendectomy.2. Cholecystectomy and hysterectomy. [facility]manTHYROID STIMULATING [id number] 19:20:00 Test Item Value Reference Range Interpretation Comments TSH (test code = See_Comment [Automated message] 8668657901) The system [employer] generated this result transmitted ref erence range: 0.45 - 4 .70 mIU/L. The refe rence range was not u sed to interpret this result as normal/abnor mal. Lab Interpretation (test Normal code = 01262-3) [facility]manTroponin [id number] 19:02:00 Test Item Value Reference Range Interpretation Comments TROPONIN I (test <0.012 See_Comment [Automated code = 7323548962) message] The system which generated this result [...] ? Lab Interpretation Normal (test code = 54738-9) [facility]man[facility]-TERMINAL [id number] 18:59:00 Test Item Value Reference Range Interpretation Comments NT-proBNP (test code 36 pg/mL See_Comment [Autom ated = 5155881826) message] The system which generated this result transmitted reference range : <=125. The reference range was not used to interpret this result as normal/abnormal . NABIL (test code = NABIL) Biotin has been reported to cause a negative bias, interpret results relative to patient's use of biotin. Lab Interpretation Normal (test code = 50173-0) [facility]manBasi Metabolic Panel (NA, K, CL, CO2, GLUCOSE, BUN, CREATININE, CA)2018-11-26 18:50:00 Test Item Value Reference Range Interpretation Comments NA (test code = 136 mmol/L 135-145 6794566822) K (test code = 5.1 mmol/L 3.5-5 H 8062600117) CL (test code = 99 mmol/L 98-108 1755286482) CO2 TOTAL (test code = 24 mmol/L 23-31 5809906711) AGAP (test code = 2-16 5314726324) BUN (test code = 23 mg/dL 7-23 5115533786) GLUCOSE (test code = 407 mg/dL 70-110 H 6743994527) CREATININE (test code = 0.45 mg/dL 0.5-1.04 L 4022684978) CALCIUM (test code = 9.9 mg/dL 8.6-10.6 3049198576) eGFR Calculation mL/min/1.73m2 (Non-) (test code = 4564372135) eGFR Calculation mL/min/1.73m2 () (test code = 1191426536) NABIL (test code = NABIL) Association of [...] tests). Lab Interpretation Abnormal (test code = 35671-9) [facility]man[facility] Function Panel (ALB, T.PRO, BILI T, BU/BC, ALT, AST, ALK PHOS)2018-11-26 18:50:00 Test Item Value Reference Range Interpretation Comments TOTAL BILI (test code = 4962482256) 0.4 mg/dL 0.1-1.1 BILI UNCON (test code = 7407849449) 0.2 mg/dL 0.1-1.1 BILI CONJ (test code = 8999054231) 0.0 mg/dL 0-0.3 T PROTEIN (test code = 3368146745) 7.8 g/dL 6.3-8.2 ALBUMIN (test code = 1872507798) 4.6 g/dL 3.5-5 ALK PHOS (test code = 0269137046) 165 U/L 34-122 H ALT(SGPT) (test code = 0301647434) 22 U/L 9-51 AST(SGOT) (test code = 0698689123) 19 U/L 13-40 Lab Interpretation (test code = Abnormal 62831-1) [facility]aufmanLipase [id number] 18:50:00 Test Item Value Reference Range Interpretation Comments LIPASE (test code = 9595842874) 131 U/L 0-220 Lab Interpretation (test code = Normal 87948-7) [facility]aufmanaPTT2019-08-15 18:12:00 Test Item Value Reference Range Interpretation Comments APTT Patient (test See_Comment [Automat ed code = 3173-2) message] The system which generated this result transmitted reference range : 23 - 38 Seconds . The reference range was not used to interpr et this result as normal/abnormal . NABIL (test code = NABIL) The [facility] patient population mean normal value for aPTT is 30 seconds. Lab Interpretation Normal (test code = 22387-7) [facility]aufmanProthrombin Time (PT) / [id number] 18:10:00 Test Item Value Reference Range Interpretation [...] tions. Lab Interpretation (test Normal code = 58295-5) [facility]aufmanUrinalysis2019-08-15 17:55:00 Test Item Value Reference Range Interpretation Comments APPEARANCE (test code = Clear Clear 7492905656) COLOR (test code = Yellow Yellow 7090083357) PH (test code = 4.8-8.0 0736460499) SP GRAVITY (test code = <=1.005 1.003-1.030 1771821348) GLU U QUAL (test code = >1000 mg/dL Negative A 1601991934) BLOOD (test code = Trace Negative A 3825170849) KETONES (test code = Negative Negative 4736320847) PROTEIN (test code = Negative Negative 2887-8) UROBILIN (test code = 0.2 mg/dL See_Comment [Auto mated 8955924675) message] The sy stem which generated this result transmitted reference range : 0-1.0 mg/dL. Th e reference range was not used to interpret this result as normal/abnormal . BILIRUBIN (test code = Negative Negative 4678454310) NITRITE (test code = Positive Negative A 0054690820) LEUK SONU (test code = Negative Negative 2709552473) RBC/HPF (test code = See_Comment [Autom ated 4907436936) message] The sy stem which generated this result transmitted reference range : 0 - 3 HPF. The reference range was not used to interpret this result as normal/abnormal . WBC/HPF (test code = See_Comment H [Autom ated 4958306096) message] The sy stem which generated this result transmitted reference range : 0 - 5 HPF. The reference range was not used to interpret this result as normal/abnormal . BACTERIA (test code = Many Negative A 8994319364) Lab Interpretation Abnormal (test code = 46237-5) [facility] 2 [id number] 17:44:52HISTORY: SOB. TECHNIQUE: PA and lateral views [...] cardiac size.CONCLUSIONS: No signs of acute cardiopulmonary disease.[facility] WITH [id number] 17:41:00 Test Item Value Reference Range Interpretation [...] (test code = 37.2 fL 39-49.9 L 99918-5) RDW-CV (test code = 13.1 % 12-15.5 788-0) PLT (test code = See_Comment H [Automated 777-3) message] The sy stem which generated this result transmitted reference range : 166 - 358 10*3/ ?L. The reference r kehinde was not used to interpret this result as normal/abnormal . MPV (test code = 9.9 fL 9.5-12.9 95243-4) NRBC/100 WBC (test See_Comment [Automat ed code = 1363501693) message] The system which generated this result transmitted reference range : 0.0 - 10.0 /100 WBCs. The refer ence range was not u sed to interpret th is result as normal/abnormal . NRBC x10^3 (test code <0.01 See_Comment [Auto mated = 3663246728) message] The s ystem which generated this result transmitted reference range : 10*3/?L. The reference range was not used to interpret this result as normal/abnormal . GRAN MAT (NEUT) % 53.2 % (test code = 770-8) IMM GRAN % (test code 0.30 % = 3263121622) LYMPH % (test code = 37.4 % 736-9) MONO % (test code = 5.9 % 5905-5) EOS % (test code = 2.2 % 713-8) BASO % (test code = 1.0 % 706-2) GRAN MAT x10^3(ANC) 3.18 10*3/uL 1.88-7.09 (test code = 1907220671) IMM GRAN x10^3 (test <0.03 0-0.06 code = 1152940022) LYMPH x10^3 (test code 2.23 10*3/uL 1.32-3.29 = 731-0) MONO x10^3 (test code 0.35 10*3/uL 0.33-0.92 = 742-7) EOS x10^3 (test code = 0.13 10*3/uL 0.03-0.39 711-2) BASO x10^3 (test code 0.06 10*3/uL 0.01-0.07 = 704-7) Lab Interpretation Abnormal (test code = 42670-8) [facility]man[facility]CT-GLU[facility]SE [id number] 11:53:00 Test Item Value Reference Range Interpretation Comments POC-GLUCOSE METER 277 mg/dL 70-110 H TESTED AT [address] ([facility]) (test code [facility] = 1538) [address] POCT-GLUCOSE [id number] 11:53:00 Test Item Value Reference Range Interpretation Comments POC-GLUCOSE METER 411 mg/dL 70-110 HH TESTED AT [address]) (test code [address] [facility] = 1538) [address] RAD, SPINE, CERVICAL, 2 OR 3 [id number] 23:46:00Reason for exam:->neck painFINAL REPORT RAD, SPINE, [...] MDReport Verified Date/Time: 10/06/2017 23:44:40 Reading Location: [address] Transitional Reading Room CT, BRAIN, WITHOUT [...] MRI for further evaluation. Signed: Tremaine Rea [facility] Verified Date/Time: 10/06/2017 23:24:44 Reading Location: [address] Reading Room TROPONIN I 2017-10-06 22:56:00 [...] acute neurological disease, and persistent tachyarrhythmia.COMPREHENSIVE METABOLIC [id number] 22:50:00 Test Item Value Reference Range Interpretation [...] S NOT APPLICABLE FOR DIALYSIS PATIEN TS. [id number] 22:42:00 Test Item Value Reference Range Interpretation Comments AMYLASE (BEAKER) (test code = 349) 58 U/L 30-110 CBC W/PLT COUNT & AUTO [id number] 22:22:00 Test Item Value Reference Range Interpretation [...] 0.00-0.20 (test code = 417) URINALYSIS W/ [id number] 22:09:00 Test Item Value Reference Range Interpretation [...] 1663) SOURCE(BEAKER) (test code = 2795) POCT-GLUCOSE [id number] 07:19:00 Test Item Value Reference Range Interpretation Comments POC-GLUCOSE METER 241 mg/dL 70-110 H TESTED AT [address] (BEAKER) (test code [facility] [place] = 1538) [address] CT, [id number] 19:16:00FINAL REPORT CT OF THE ABDOMEN AND [...] MDReport Verified Date/Time: 09/22/2017 19:16:29 Reading Location: [address] Consult [facility] MET[facility]OLIC [id number] 17:37:00 Test Item Value Reference Range Interpretation [...] NOT APPLICABLE FOR DIALYSIS PATIEN TS. TROPONIN [id number] 17:07:00 Test Item Value Reference Range Interpretation [...] (test code = 749) 26 U/L 6-51 [id number] 16:51:00 Test Item Value Reference Range Interpretation Comments AMYLASE (BEAKER) (test 32 U/L 30-110 Speci men markedly code = 349) hemolyzed URINALYSIS W/ [id number] 16:21:00 Test Item Value Reference Range Interpretation [...] = 2795) CBC W/PLT COUNT & AUTO [id number] 16:15:00 Test Item Value Reference Range Interpretation [...] L 0.00-0.20 (test code = 417) POCT-GLUCOSE [id number] 15:36:00 Test Item Value Reference Range Interpretation Comments POC-GLUCOSE METER 284 mg/dL 70-110 H TESTED AT [address] (BEAKER) (test code [address] [facility] [place] = 1538) [address] CT, [id number] 15:32:00Reason for exam:->LLQ ABD PAINIs the patient [...] since prior examination dated 07/09/2016. Signed: Gama Valdezeport Verified Date/Time: 07/07/2017 15:32:20 Reading Location: [facility] B1 C013Y CT Body Reading Room LIPASE 2017-07-07 14:41:00 Test Item Value Reference Range Interpretation Comments LIPASE (BEAKER) (test code = 749) 32 U/L 6-51 COMPREHENSIVE METABOLIC [id number] 14:40:00 Test Item Value Reference Range Interpretation [...] NOT APPLICABLE FOR DIALYSIS PATIEN TS. POCT-GLUCOSE [id number] 14:10:00 Test Item Value Reference Range Interpretation Comments POC-GLUCOSE METER 352 mg/dL 70-110 H TESTED AT [facility] [address] (BEAKER) (test code [address] [facility] [place] = 1538) [address] CBC W/PLT COUNT & AUTO [id number] 13:30:00 Test Item Value Reference Range Interpretation [...] 0.00-0.20 (test code = 417) URINALYSIS W/ [id number] 13:01:00 Test Item Value Reference Range Interpretation [...] 1663) SOURCE(BEAKER) (test code = 2795) KETONE, [id number] 12:58:00 Test Item Value Reference Range Interpretation Comments KETONES, BLOOD (BEAKER) (test code 0.1 mmol/L <0.4 = 1103) BLOOD GAS, [id number] 12:48:00 Test Item Value Reference Range Interpretation [...] (test code = 1819) 37.0 % POCT-GLUCOSE [id number] 12:04:00 Test Item Value Reference Range Interpretation Comments POC-GLUCOSE METER > mg/dL 70-110 HH OUTSIDE ME ASURING (BEAKER) (test code RANGETES SARAN AT [facility] = 1538) [facility] [address] BACTERIAL - [id number] 03:02:00 Test Item Value Reference Range Interpretation Comments Strep pneumoniae Ag Negative (02/25/17 (test code = Strep 9:02 PM) pneumoniae Ag) [facility] [id number] 03:02:00 Test Item Value Reference Range Interpretation Comments Source Strep (test code Cerebral Spinal Fluid = Source Strep) [facility] [id number] 03:02:00 Test Item Value Reference Range Interpretation Comments Tube Num CSF (test code = Tube Num CSF) 1 1 [facility] [id number] 03:02:00 Test Item Value Reference Range Interpretation Comments Clarity CSF (test code = Clear (02/25/17 9:02 Clarity CSF) PM) [facility] [id number] 03:02:00 Test Item Value Reference Range Interpretation Comments Color CSF (test code Colorless (02/25/17 9:02 = Color CSF) PM) [facility] [id number] 03:02:00 Test Item Value Reference Range Interpretation Comments Supernat CSF (test Colorless (02/25/17 code = Supernat CSF) 9:02 PM) [facility] [id number] 03:02:00 Test Item Value Reference Range Interpretation Comments WBC CSF (test code = 2 See_Comment [Autom ated message] The WBC CSF) system which ge nerated this result transmit saran reference range : <=53. The reference range was not used to interpr et this result as justina l/abnormal. [facility] [id number] 03:02:00 Test Item Value Reference Range Interpretation Comments RBC CSF (test code = 1 See_Comment [Autom ated message] The RBC CSF) system which ge nerated this result transmit saran reference range : <=03. The reference range was not used to interpr et this result as justina l/abnormal. [facility] [id number] 03:02:00 Test Item Value Reference Range Interpretation Comments RBC CSF (test code = 1 See_Comment [Autom ated message] The RBC CSF) system which ge nerated this result transmit saran reference range : <=03. The reference range was not used to interpr et this result as justina l/abnormal. [facility] [id number] 03:02:00 Test Item Value Reference Range Interpretation Comments WBC CSF (test code = 2 See_Comment [Autom ated message] The WBC CSF) system which ge nerated this result transmit saran reference range : <=53. The reference range was not used to interpr et this result as justina l/abnormal. [facility] [id number] 03:02:00 Test Item Value Reference Range Interpretation Comments Supernat CSF (test Colorless (02/25/17 code = Supernat CSF) 9:02 PM) [facility] [id number] 03:02:00 Test Item Value Reference Range Interpretation Comments Clarity CSF (test code = Clear (02/25/17 9:02 Clarity CSF) PM) [facility] [id number] 03:02:00 Test Item Value Reference Range Interpretation Comments Tube Num CSF (test code = Tube Num CSF) 4 1 [facility] [id number] 03:02:00 Test Item Value Reference Range Interpretation Comments Color CSF (test code Colorless (02/25/17 9:02 = Color CSF) PM) [facility] [id number] 03:02:00 Test Item Value Reference Range Interpretation Comments Glucose CSF (test code = Glucose CSF) 219 45-80 [facility] [id number] 03:02:00 Test Item Value Reference Range Interpretation Comments Protein CSF (test code = Protein CSF) 55 15-45 [facility] [id number] 03:02:00 Test Item Value Reference Range Interpretation Comments Crypto Ag CSF (test Negative (02/25/17 9:02 code = Crypto Ag CSF) PM) [facility] [id number] 03:02:00 Test Item Value Reference Range Interpretation Comments VDRL Scr CSF (test Non Reactive (02/25/17 code = VDRL Scr CSF) 9:02 PM) [facility] [id number] 03:02:00 Test Item Value Reference Range Interpretation Comments HSV 2 by PCR (test Negative 2(02/25/17 9:02 code = HSV 2 by PCR) PM) [facility] [id number] 03:02:00 Test Item Value Reference Range Interpretation Comments HSV 1 by PCR (test Negative 1(02/25/17 9:02 code = HSV 1 by PCR) PM) [facility]annWVLECULAR [id number] 03:02:00 Test Item Value Reference Range Interpretation Comments Source HSV (test code = Cerebral Spinal Fluid Source HSV) [facility]annVIRAL - [id number] 03:02:00 Test Item Value Reference Range Interpretation Comments Enterovirus PCR CSF Negative (02/25/17 (test code = Enterovirus 9:02 PM) PCR CSF) [facility]annCHEM [id number] 01:42:00 Test Item Value Reference Range Interpretation Comments A/G Ratio (test code = A/G Ratio) 0.9 0.7-1.6 [facility]CHE[facility] [id number] 01:42:00 Test Item Value Reference Range Interpretation Comments B/C Ratio (test code = B/C Ratio) 23 6-25 [facility]CHE[facility] [id number] 01:42:00 Test Item Value Reference Range Interpretation Comments Globulin (test code = Globulin) 4.3 2.7-4.2 [facility]CHE[facility] [id number] 01:42:00 Test Item Value Reference Range Interpretation Comments AGAP (test code = AGAP) 11.3 10.0-20.0 [facility] [id number] 01:42:00 Test Item Value Reference Range Interpretation Comments eGFR (test code = eGFR) 101 [facility] [id number] 01:42:00 Test Item Value Reference Range Interpretation Comments Bili Total (test code = Bili Total) 0.3 0.2-1.3 [facility]2017-11-15 01:42:00 Test Item Value Reference Range Interpretation Comments BUN (test code = BUN) 16 7-22 [facility]2017-11-15 01:42:00 Test Item Value Reference Range Interpretation Comments ALANINE AMINOTRANSFERASE 17 See_Comment [A utomated message] (test code = ALANINE The sys tem which AMINOTRANSFERASE) generated this result transmitted ref erence range: <=65. Th e reference range was not used to int erpret this result as normal/abnormal . [facility]2017-11-15 01:42:00 Test Item Value Reference Range Interpretation Comments Total Protein (test code = Total 8.2 6.4-8.4 Protein) [facility]2017-11-15 01:42:00 Test Item Value Reference Range Interpretation Comments Potassium Lvl (test code = Potassium 4.3 3.5-5.1 Lvl) [facility]2017-11-15 01:42:00 Test Item Value Reference Range Interpretation Comments Sodium Lvl (test code = Sodium Lvl) 130 135-145 [facility]2017-11-15 01:42:00 Test Item Value Reference Range Interpretation Comments Creatinine Lvl (test code = Creatinine 0.70 0.50-1.40 Lvl) [facility]2017-11-15 01:42:00 Test Item Value Reference Range Interpretation Comments Glucose Lvl (test code = Glucose Lvl) 340 70-99 [facility]2017-11-15 01:42:00 Test Item Value Reference Range Interpretation Comments Calcium Lvl (test code = Calcium Lvl) 8.9 8.5-10.5 [facility]2017-11-15 01:42:00 Test Item Value Reference Range Interpretation Comments Chloride Lvl (test code = Chloride Lvl) 97 95-109 [facility]2017-11-15 01:42:00 Test Item Value Reference Range Interpretation Comments CO2 (test code = CO2) 26 24-32 [facility]2017-11-15 01:42:00 Test Item Value Reference Range Interpretation Comments Alk Phos (test code = Alk Phos) 158 39-136 [facility]2017-11-15 01:42:00 Test Item Value Reference Range Interpretation Comments ASPARTATE TRANSAMINASE 16 See_Comment [Aut omated message] (test code = ASPARTATE The s ystem which TRANSAMINASE) generated this result transmitted ref erence range: <=37. Th e reference range was not used to interpr et this result as normal/abnormal . [facility]2017-11-15 01:42:00 Test Item Value Reference Range Interpretation Comments Albumin Lvl (test code = Albumin Lvl) 3.9 3.5-5.0 [facility]2017-11-15 01:42:00 Test Item Value Reference Range Interpretation Comments Lactic Acid Lvl (test code = Lactic 1.8 0.5-2.2 Acid Lvl) [facility] Cent[id number] 01:42:00 Test Item Value Reference Range Interpretation Comments Platelet (test code = Platelet) 305 133-450 [facility] CenterJtnnzvgABCWOEJDQB1038-17-27 01:42:00 Test Item Value Reference Range Interpretation Comments MCV (test code = MCV) 82.2 80.0-98.0 [facility] CenterJrlchfwEQLILRJOSB7262-00-39 01:42:00 Test Item Value Reference Range Interpretation Comments Hct (test code = Hct) 37.1 36.0-48.0 [facility] CenterXurzmszCLBQGLMGNT4045-56-13 01:42:00 Test Item Value Reference Range Interpretation Comments MPV (test code = MPV) 7.4 7.4-10.4 [facility] CenterOfpvrxnPIEDMDTSIU5929-37-44 01:42:00 Test Item Value Reference Range Interpretation Comments RDW (test code = RDW) 14.1 11.5-14.5 [facility] CenterHalocgjDOFJMXOVAF3426-89-75 01:42:00 Test Item Value Reference Range Interpretation Comments MCH (test code = MCH) 27.6 pg 27.0-31.0 [facility] CenterLxtjpvkKHJNOODMZI9671-54-64 01:42:00 Test Item Value Reference Range Interpretation Comments MCHC (test code = MCHC) 33.6 32.0-36.0 [facility] CenterSmaygiaVWEUQVUMUG5180-70-01 01:42:00 Test Item Value Reference Range Interpretation Comments RBC X 10x6 (test code = RBC X 10x6) 4.52 4.20-5.40 [facility] CenterKizguktENPFQNUSVJ1486-35-47 01:42:00 Test Item Value Reference Range Interpretation Comments Hgb (test code = Hgb) 12.5 12.0-16.0 [facility] CenterJuxhaedPNYUCNUJTY7081-61-63 01:42:00 Test Item Value Reference Range Interpretation Comments WBC X 10x3 (test code = WBC X 10x3) 7.1 3.7-10.4 [facility] CenterWjsuvkjPBIKTKUTSC4772-10-04 01:42:00 Test Item Value Reference Range Interpretation Comments Basophils (test code = 0.8 See_Comment [Aut omated message] The Basophils) system which ge nerated this result tra nsmitted reference range : <=1.0. The reference r kehinde was not used to int erpret this result as normal/abnormal . [facility] CenterFkldzckTPTPYLQLOV5315-65-03 01:42:00 Test Item Value Reference Range Interpretation Comments Lymphocytes # (test code = Lymphocytes 2.8 1.0-5.5 #) [facility] CenterTgaapbuPBATPTVMTG3396-68-83 01:42:00 Test Item Value Reference Range Interpretation Comments Segs-Bands # (test code = Segs-Bands #) 3.8 1.5-8.1 [facility] CenterBryvtrsUNLLHPLDVA4316-47-77 01:42:00 Test Item Value Reference Range Interpretation Comments Monocytes # (test code 0.4 See_Comment [Aut omated message] The = Monocytes #) system which generated this result tra nsmitted reference range : <=0.8. The reference r kehinde was not used to int erpret this result as normal/abnormal . [facility] CenterYmjakboLQBYHTQAUN4804-24-35 01:42:00 Test Item Value Reference Range Interpretation Comments Segs (test code = Segs) 53.4 45.0-75.0 [facility] CenterAkvmntnDYDHKTNFOS4986-21-25 01:42:00 Test Item Value Reference Range Interpretation Comments Lymphocytes (test code = Lymphocytes) 39.1 20.0-40.0 [facility] CenterWdybcpjTRCOTUWHQM7819-16-99 01:42:00 Test Item Value Reference Range Interpretation Comments Eosinophils (test code = 1.4 See_Comment [A utomated message] The Eosinophils) system which ge nerated this result tra nsmitted reference range : <=4.0. The reference r kehinde was not used to int erpret this result as normal/abnormal . [facility] CenterKxmowqaIHJPQPJKGL6238-35-35 01:42:00 Test Item Value Reference Range Interpretation Comments Monocytes (test code = Monocytes) 5.3 2.0-12.0 [facility] CenterTgshbkpPRMSKVHGJO8862-41-51 01:42:00 Test Item Value Reference Range Interpretation Comments Basophils # (test code 0.1 See_Comment [Aut omated message] The = Basophils #) system which generated this result tra nsmitted reference range : <=0.2. The reference r kehinde was not used to int erpret this result as normal/abnormal . [facility] CenterQdrstjjHXRNHZZDLE5473-63-74 01:42:00 Test Item Value Reference Range Interpretation Comments Eosinophils # (test code 0.1 See_Comment [A utomated message] The = Eosinophils #) system whic h generated this result tra nsmitted reference range : <=0.5. The reference r kehinde was not used to int erpret this result as normal/abnormal . [facility] AND [id number] 01:42:00 Test Item Value Reference Range Interpretation Comments UA Urobilinogen (test code = UA 0.2 0.1-1.0 Urobilinogen) [facility] AND [id number] 01:42:00 Test Item Value Reference Range Interpretation Comments UA Nitrite (test code Negative (02/25/17 7:42 = UA Nitrite) PM) [facility] AND [id number] 01:42:00 Test Item Value Reference Range Interpretation Comments UA Bili (test code = Negative *NA*(02/25/17 UA Bili) 7:42 PM) [facility] AND [id number] 01:42:00 Test Item Value Reference Range Interpretation Comments UA Ketones (test code Negative *NA*(02/25/17 = UA Ketones) 7:42 PM) [facility] AND [id number] 01:42:00 Test Item Value Reference Range Interpretation Comments UA Bacteria (test code = UA Many /HPF Bacteria) [facility] AND [id number] 01:42:00 Test Item Value Reference Range Interpretation Comments UA WBC (test code = UA WBC) 0-2 /HPF [facility] AND [id number] 01:42:00 Test Item Value Reference Range Interpretation Comments UA RBC (test code = 0-2 /HPF See_Comment [Automa saran message] The UA RBC) system which ge nerated this result tra nsmitted reference range : <=2. The reference range was not used to interpr et this result as justina l/abnormal. [facility] AND [id number] 01:42:00 Test Item Value Reference Range Interpretation Comments UA Leuk Est (test Negative (02/25/17 7:42 code = UA Leuk Est) PM) [facility] AND [id number] 01:42:00 Test Item Value Reference Range Interpretation Comments UA Sq Epi (test code = UA Sq Epi) Few /LPF [facility] AND [id number] 01:42:00 Test Item Value Reference Range Interpretation Comments UA Blood (test code = Negative (02/25/17 7:42 UA Blood) PM) [facility] AND [id number] 01:42:00 Test Item Value Reference Range Interpretation Comments UA Glucose (test code = UA >=1000 mg/dL Glucose) [facility] AND [id number] 01:42:00 Test Item Value Reference Range Interpretation Comments UA Protein (test code Negative (02/25/17 7:42 = UA Protein) PM) [facility] AND [id number] 01:42:00 Test Item Value Reference Range Interpretation Comments UA pH (test code = UA pH) 6.0 1 5.0-8.0 [facility] AND [id number] 01:42:00 Test Item Value Reference Range Interpretation Comments UA Spec Grav (test code = UA Spec 1.010 1 Grav) [facility] AND [id number] 01:42:00 Test Item Value Reference Range Interpretation Comments UA Color (test code = Yellow *NA*(02/25/17 UA Color) 7:42 PM) [facility] AND [id number] 01:42:00 Test Item Value Reference Range Interpretation Comments UA Turbidity (test code Slight Cloudy = UA Turbidity) (02/25/17 7:42 PM) [facility] - [id number] 01:42:00 Test Item Value Reference Range Interpretation Comments Influ B (test code = Negative (02/25/17 7:42 Influ B) PM) [facility] [id number] 01:42:00 Test Item Value Reference Range Interpretation Comments Influ A (test code = Negative (02/25/17 7:42 Influ A) PM) [facility]2017-10-15 09:02:00 Test Item Value Reference Range Interpretation Comments eGFR (test code = eGFR) 121 [facility]2017-10-15 09:02:00 Test Item Value Reference Range Interpretation Comments Bili Total (test code = Bili Total) 0.2 0.2-1.3 [facility]2017-10-15 09:02:00 Test Item Value Reference Range Interpretation Comments Alk Phos (test code = Alk Phos) 165 39-136 [facility]2017-10-15 09:02:00 Test Item Value Reference Range Interpretation Comments B/C Ratio (test code = B/C Ratio) 12 6-25 [facility]2017-10-15 09:02:00 Test Item Value Reference Range Interpretation Comments Globulin (test code = Globulin) 3.3 2.7-4.2 [facility]2017-10-15 09:02:00 Test Item Value Reference Range Interpretation Comments Albumin Lvl (test code = Albumin Lvl) 2.4 3.5-5.0 [facility]2017-10-15 09:02:00 Test Item Value Reference Range Interpretation Comments Total Protein (test code = Total 5.7 6.4-8.4 Protein) [facility]2017-10-15 09:02:00 Test Item Value Reference Range Interpretation Comments AGAP (test code = AGAP) 9.7 10.0-20.0 [facility]2017-10-15 09:02:00 Test Item Value Reference Range Interpretation Comments Glucose Lvl (test code = Glucose Lvl) 261 70-99 [facility]2017-10-15 09:02:00 Test Item Value Reference Range Interpretation Comments Calcium Lvl (test code = Calcium Lvl) 7.4 8.5-10.5 [facility]2017-10-15 09:02:00 Test Item Value Reference Range Interpretation Comments A/G Ratio (test code = A/G Ratio) 0.7 0.7-1.6 [facility]2017-10-15 09:02:00 Test Item Value Reference Range Interpretation Comments Creatinine Lvl (test code = Creatinine 0.40 0.50-1.40 Lvl) [facility]2017-10-15 09:02:00 Test Item Value Reference Range Interpretation Comments BUN (test code = BUN) 5 7-22 [facility]2017-10-15 09:02:00 Test Item Value Reference Range Interpretation Comments ASPARTATE TRANSAMINASE 37 See_Comment [Aut omated message] (test code = ASPARTATE The s ystem which TRANSAMINASE) generated this result transmitted ref erence range: <=37. Th e reference range was not used to interpr et this result as normal/abnormal . [facility]2017-10-15 09:02:00 Test Item Value Reference Range Interpretation Comments ALANINE AMINOTRANSFERASE 44 See_Comment [A utomated message] (test code = ALANINE The sys tem which AMINOTRANSFERASE) generated this result transmitted ref erence range: <=65. Th e reference range was not used to int erpret this result as normal/abnormal . [facility]2017-10-15 09:02:00 Test Item Value Reference Range Interpretation Comments Potassium Lvl (test code = Potassium 3.7 3.5-5.1 Lvl) [facility]2017-10-15 09:02:00 Test Item Value Reference Range Interpretation Comments Sodium Lvl (test code = Sodium Lvl) 137 135-145 [facility]2017-10-15 09:02:00 Test Item Value Reference Range Interpretation Comments CO2 (test code = CO2) 25 24-32 [facility]2017-10-15 09:02:00 Test Item Value Reference Range Interpretation Comments Chloride Lvl (test code = Chloride Lvl) 106 95-109 [facility] [id number] 22:26:00 Test Item Value Reference Range Interpretation Comments Troponin-I (test code no gt See_Comment [Auto mated message] The = Troponin-I) system which g enerated this result transmit saran reference range : <=0.40. The reference r kehinde was not used to interpr et this result as justina l/abnormal. [facility]PARATHY[facility]ID [id number] 22:26:00 Test Item Value Reference Range Interpretation Comments Ca Norm WB (test code = Ca Norm WB) 0.99 1.05-1.25 [facility] [id number] 22:26:00 Test Item Value Reference Range Interpretation Comments Ca Ion WB (test code = Ca Ion WB) 1.01 1.05-1.25 [facility]2017-10-14 20:00:00 Test Item Value Reference Range Interpretation Comments Albumin Lvl (test code = Albumin Lvl) 2.6 3.5-5.0 [facility]2017-10-14 20:00:00 Test Item Value Reference Range Interpretation Comments eGFR (test code = eGFR) 112 [facility]2017-10-14 20:00:00 Test Item Value Reference Range Interpretation Comments Creatinine Lvl (test code = Creatinine 0.50 0.50-1.40 Lvl) [facility]2017-10-14 20:00:00 Test Item Value Reference Range Interpretation Comments Sodium Lvl (test code = Sodium Lvl) 135 135-145 [facility]2017-10-14 20:00:00 Test Item Value Reference Range Interpretation Comments Potassium Lvl (test code = Potassium 3.6 3.5-5.1 Lvl) [facility]2017-10-14 20:00:00 Test Item Value Reference Range Interpretation Comments CO2 (test code = CO2) 25 24-32 [facility]2017-10-14 20:00:00 Test Item Value Reference Range Interpretation Comments Chloride Lvl (test code = Chloride Lvl) 105 95-109 [facility]2017-10-14 20:00:00 Test Item Value Reference Range Interpretation Comments AGAP (test code = AGAP) 8.6 10.0-20.0 [facility]2017-10-14 20:00:00 Test Item Value Reference Range Interpretation Comments Calcium Lvl (test code = Calcium Lvl) 6.9 8.5-10.5 [facility]2017-10-14 20:00:00 Test Item Value Reference Range Interpretation Comments Glucose Lvl (test code = Glucose Lvl) 263 70-99 [facility]2017-10-14 20:00:00 Test Item Value Reference Range Interpretation Comments BUN (test code = BUN) 8 7-22 [facility]2017-10-14 08:54:00 Test Item Value Reference Range Interpretation Comments Phosphorus (test code = Phosphorus) 2.7 2.5-4.5 [facility]2017-10-14 08:54:00 Test Item Value Reference Range Interpretation Comments eGFR (test code = eGFR) 106 [facility]2017-10-14 08:54:00 Test Item Value Reference Range Interpretation Comments Creatinine Lvl (test code = Creatinine 0.60 0.50-1.40 Lvl) [facility]2017-10-14 08:54:00 Test Item Value Reference Range Interpretation Comments BUN (test code = BUN) 9 7-22 [facility]2017-10-14 08:54:00 Test Item Value Reference Range Interpretation Comments Glucose Lvl (test code = Glucose Lvl) 405 70-99 [facility]2017-10-14 08:54:00 Test Item Value Reference Range Interpretation Comments AGAP (test code = AGAP) 12.5 10.0-20.0 [facility]2017-10-14 08:54:00 Test Item Value Reference Range Interpretation Comments Potassium Lvl (test code = Potassium 3.5 3.5-5.1 Lvl) [facility]2017-10-14 08:54:00 Test Item Value Reference Range Interpretation Comments Chloride Lvl (test code = Chloride Lvl) 102 95-109 [facility]2017-10-14 08:54:00 Test Item Value Reference Range Interpretation Comments CO2 (test code = CO2) 23 24-32 [facility]2017-10-14 08:54:00 Test Item Value Reference Range Interpretation Comments Calcium Lvl (test code = Calcium Lvl) 7.1 8.5-10.5 [facility]2017-10-14 08:54:00 Test Item Value Reference Range Interpretation Comments Sodium Lvl (test code = Sodium Lvl) 134 135-145 [facility]2017-10-14 08:54:00 Test Item Value Reference Range Interpretation Comments Magnesium Lvl (test code = Magnesium 1.7 1.8-2.4 Lvl) [facility] [id number] 08:54:00 Test Item Value Reference Range Interpretation Comments MPV (test code = MPV) 7.4 7.4-10.4 [facility] CenterNixbmotCUKLOIVKPU1529-88-21 08:54:00 Test Item Value Reference Range Interpretation Comments RDW (test code = RDW) 13.6 11.5-14.5 [facility] C[id number] 08:54:00 Test Item Value Reference Range Interpretation Comments Platelet (test code = Platelet) 244 133-450 [facility] CenterQuopxngRRVIHUGBQF6059-01-66 08:54:00 Test Item Value Reference Range Interpretation Comments MCHC (test code = MCHC) 33.4 32.0-36.0 [facility] Cent[id number] 08:54:00 Test Item Value Reference Range Interpretation Comments MCV (test code = MCV) 82.5 80.0-98.0 [facility] CenterFxyypxtPOCSFCDUJU0697-69-60 08:54:00 Test Item Value Reference Range Interpretation Comments MCH (test code = MCH) 27.6 pg 27.0-31.0 [facility] CenterGiihpuhKZYVBOJABH5861-09-19 08:54:00 Test Item Value Reference Range Interpretation Comments Hgb (test code = Hgb) 10.7 12.0-16.0 [facility] CenterBwdjocaXKTVONKROF7034-90-79 08:54:00 Test Item Value Reference Range Interpretation Comments Hct (test code = Hct) 32.0 36.0-48.0 [facility] CenterDnncaanMHKCLXQANV9009-17-63 08:54:00 Test Item Value Reference Range Interpretation Comments WBC X 10x3 (test code = WBC X 10x3) 5.5 3.7-10.4 [facility] CenterX[id number] 08:54:00 Test Item Value Reference Range Interpretation Comments RBC X 10x6 (test code = RBC X 10x6) 3.88 4.20-5.40 [facility] CenterOhswddlXHFVDINPVB7225-06-77 08:54:00 Test Item Value Reference Range Interpretation Comments Monocytes (test code = Monocytes) 7.2 2.0-12.0 [facility] CenterOvnirdtQBTPRCCVHP8245-60-69 08:54:00 Test Item Value Reference Range Interpretation Comments Monocytes # (test code 0.4 See_Comment [Aut omated message] The = Monocytes #) system which generated this result tra nsmitted reference range : <=0.8. The reference r kehinde was not used to int erpret this result as normal/abnormal . [facility] CenterVfxlnfxRZNGKYVXNN9744-95-57 08:54:00 Test Item Value Reference Range Interpretation Comments Segs-Bands # (test code = Segs-Bands #) 3.0 1.5-8.1 [facility] [id number] 08:54:00 Test Item Value Reference Range Interpretation Comments Lymphocytes # (test code = Lymphocytes 2.0 1.0-5.5 #) [facility] Cent[id number] 08:54:00 Test Item Value Reference Range Interpretation Comments Eosinophils (test code = 0.9 See_Comment [A utomated message] The Eosinophils) system which ge nerated this result tra nsmitted reference range : <=4.0. The reference r kehinde was not used to int erpret this result as normal/abnormal . [facility] CenterOfpseozBXZJFBPSJG1322-38-55 08:54:00 Test Item Value Reference Range Interpretation Comments Basophils (test code = 0.6 See_Comment [Aut omated message] The Basophils) system which ge nerated this result tra nsmitted reference range : <=1.0. The reference r kehinde was not used to int erpret this result as normal/abnormal . [facility] CenterFyipnjzCEDEJSGNFB0932-28-06 08:54:00 Test Item Value Reference Range Interpretation Comments Lymphocytes (test code = Lymphocytes) 36.3 20.0-40.0 [facility]RF[facility] 08:54:00 Test Item Value Reference Range Interpretation Comments Segs (test code = Segs) 55.0 45.0-75.0 [facility] [id number] 08:54:00 Test Item Value Reference Range Interpretation Comments Hgb A1C (test code = Hgb A1C) >16.0 % [facility] AND [id number] 04:54:00 Test Item Value Reference Range Interpretation Comments UA Sq Epi (test code = UA Sq Occasional /LPF Epi) [facility] [id number] 04:54:00 Test Item Value Reference Range Interpretation Comments UA WBC (test code = UA WBC) 11-20 /HPF [facility] [id number] 04:54:00 Test Item Value Reference Range Interpretation Comments UA Bacteria (test code = UA Moderate /HPF Bacteria) [facility] [id number] 04:54:00 Test Item Value Reference Range Interpretation Comments UA RBC (test code = 0-2 /HPF See_Comment [Automa saran message] The UA RBC) system which ge nerated this result tra nsmitted reference range : <=2. The reference range was not used to interpr et this result as justina l/abnormal. [facility] AND [id number] 04:54:00 Test Item Value Reference Range Interpretation Comments UA Leuk Est (test Negative (01/24/17 11:54 code = UA Leuk Est) PM) [facility] AND [id number] 04:54:00 Test Item Value Reference Range Interpretation Comments UA Nitrite (test code Positive *ABN*(01/24/17 = UA Nitrite) 11:54 PM) [facility] AND [id number] 04:54:00 Test Item Value Reference Range Interpretation Comments UA Blood (test code = Negative (01/24/17 11:54 UA Blood) PM) [facility] AND [id number] 04:54:00 Test Item Value Reference Range Interpretation Comments UA Bili (test code = Negative *NA*(01/24/17 UA Bili) 11:54 PM) [facility] AND [id number] 04:54:00 Test Item Value Reference Range Interpretation Comments UA Glucose (test code = UA >=1000 mg/dL Glucose) [facility] AND [id number] 04:54:00 Test Item Value Reference Range Interpretation Comments UA Protein (test code Negative (01/24/17 = UA Protein) 11:54 PM) [facility] AND [id number] 04:54:00 Test Item Value Reference Range Interpretation Comments UA Urobilinogen (test code = UA 0.2 0.1-1.0 Urobilinogen) [facility] AND [id number] 04:54:00 Test Item Value Reference Range Interpretation Comments UA Ketones (test code Negative *NA*(01/24/17 = UA Ketones) 11:54 PM) [facility] AND [id number] 04:54:00 Test Item Value Reference Range Interpretation Comments UA pH (test code = UA pH) 5.5 1 5.0-8.0 [facility] AND [id number] 04:54:00 Test Item Value Reference Range Interpretation Comments UA Spec Grav (test *NA*(01/24/17 11:54 PM) code = UA Spec Grav) [facility] [id number] 04:54:00 Test Item Value Reference Range Interpretation Comments UA Color (test code = Yellow *NA*(01/24/17 UA Color) 11:54 PM) [facility] [id number] 04:54:00 Test Item Value Reference Range Interpretation Comments UA Turbidity (test code = Clear (01/24/17 UA Turbidity) 11:54 PM) [facility]ARD[facility] [id number] 02:44:00 Test Item Value Reference Range Interpretation Comments Total CK (test code = Total CK) 62 12-191 [facility] SystemsannCARDIAC [id number] 02:44:00 Test Item Value Reference Range Interpretation Comments CK MB (test code = CK MB) no gt 0.5-3.6 [facility] SystemsannWallarmAC [id number] 02:44:00 Test Item Value Reference Range Interpretation Comments Troponin-I (test code no gt See_Comment [Auto mated message] The = Troponin-I) system which g enerated this result transmit saran reference range : <=0.40. The reference r kehinde was not used to interpr et this result as justina l/abnormal. [facility] [id number] 02:44:00 Test Item Value Reference Range Interpretation Comments CK-MB INDEX (test no gt See_Comment [Automate d message] The code = CK-MB INDEX) system w [facility] generated this result transmit saran reference range : <=2.5. The reference range was not used to interpr et this result as justina l/abnormal. [employer] [id number] 02:44:00 Test Item Value Reference Range Interpretation Comments ASPARTATE TRANSAMINASE 14 See_Comment [Aut omated message] (test code = ASPARTATE The s ystem which TRANSAMINASE) generated this result transmitted ref erence range: <=37. Th e reference range was not used to interpr et this result as normal/abnormal . [facility] [employer] [id number] 02:44:00 Test Item Value Reference Range Interpretation Comments Bili Total (test code = Bili Total) 0.5 0.2-1.3 [facility]2017-10-14 02:44:00 Test Item Value Reference Range Interpretation Comments ALANINE AMINOTRANSFERASE 37 See_Comment [A utomated message] (test code = ALANINE The sys tem which AMINOTRANSFERASE) generated this result transmitted ref erence range: <=65. Th e reference range was not used to int erpret this result as normal/abnormal . [facility]2017-10-14 02:44:00 Test Item Value Reference Range Interpretation Comments Alk Phos (test code = Alk Phos) 222 39-136 [facility]2017-10-14 02:44:00 Test Item Value Reference Range Interpretation Comments A/G Ratio (test code = A/G Ratio) 0.7 0.7-1.6 [facility]2017-10-14 02:44:00 Test Item Value Reference Range Interpretation Comments Globulin (test code = Globulin) 4.7 2.7-4.2 [facility]2017-10-14 02:44:00 Test Item Value Reference Range Interpretation Comments Albumin Lvl (test code = Albumin Lvl) 3.5 3.5-5.0 [facility]2017-10-14 02:44:00 Test Item Value Reference Range Interpretation Comments B/C Ratio (test code = B/C Ratio) 16 6-25 [facility]2017-10-14 02:44:00 Test Item Value Reference Range Interpretation Comments Total Protein (test code = Total 8.2 6.4-8.4 Protein) [facility]2017-10-14 02:44:00 Test Item Value Reference Range Interpretation Comments Lipase Lvl (test code = Lipase Lvl) 168 73-393 [facility]TbqojdmWGXSXMHSMS5629-25-47 02:44:00 Test Item Value Reference Range Interpretation Comments Hgb (test code = Hgb) 13.7 12.0-16.0 [facility] CenterGrodfgtEYRXSNOFWV1858-90-29 02:44:00 Test Item Value Reference Range Interpretation Comments Hct (test code = Hct) 41.6 36.0-48.0 [facility] CenterIgxwtzdPPTUBBOJAU6164-74-77 02:44:00 Test Item Value Reference Range Interpretation Comments MCV (test code = MCV) 83.6 80.0-98.0 [facility] CenterTanbhqnZWUDSBAPYU4053-40-80 02:44:00 Test Item Value Reference Range Interpretation Comments MCH (test code = MCH) 27.5 pg 27.0-31.0 [facility] CenterKwyzyriKKMEQAILZI7062-92-56 02:44:00 Test Item Value Reference Range Interpretation Comments MCHC (test code = MCHC) 32.9 32.0-36.0 [facility] CenterIeemsuuNXMVTSNTGF9644-38-07 02:44:00 Test Item Value Reference Range Interpretation Comments RDW (test code = RDW) 13.6 11.5-14.5 [facility] CenterZigcabwADRWODGLYG9380-92-11 02:44:00 Test Item Value Reference Range Interpretation Comments Platelet (test code = Platelet) 314 133-450 [facility] CenterSaahtplSWXZFSZDXQ0186-86-27 02:44:00 Test Item Value Reference Range Interpretation Comments MPV (test code = MPV) 8.1 7.4-10.4 [facility] CenterQhwldtnJGZSCXDIMV4848-70-90 02:44:00 Test Item Value Reference Range Interpretation Comments WBC X 10x3 (test code = WBC X 10x3) 5.8 3.7-10.4 [facility] CenterWzsdgygDPWVTRGHTR4536-41-44 02:44:00 Test Item Value Reference Range Interpretation Comments RBC X 10x6 (test code = RBC X 10x6) 4.97 4.20-5.40 [facility] CenterNaasoswFOZWGCGUOG0409-26-43 02:44:00 Test Item Value Reference Range Interpretation Comments Monocytes # (test code 0.4 See_Comment [Aut omated message] The = Monocytes #) system which generated this result tra nsmitted reference range : <=0.8. The reference r kehinde was not used to int erpret this result as normal/abnormal . [facility] CenterCeuitevPZVKHNBNZV5123-64-74 02:44:00 Test Item Value Reference Range Interpretation Comments Basophils (test code = 0.7 See_Comment [Aut omated message] The Basophils) system which ge nerated this result tra nsmitted reference range : <=1.0. The reference r kehinde was not used to int erpret this result as normal/abnormal . [facility] CenterGzpajykXHKUFQPZJD0062-58-30 02:44:00 Test Item Value Reference Range Interpretation Comments Segs-Bands # (test code = Segs-Bands #) 3.5 1.5-8.1 [facility] CenterZvpwkkkRACIHNWGRG9848-50-78 02:44:00 Test Item Value Reference Range Interpretation Comments Monocytes (test code = Monocytes) 7.1 2.0-12.0 [facility] CenterDagextdZAYVTRMYHV9195-91-23 02:44:00 Test Item Value Reference Range Interpretation Comments Eosinophils (test code = 0.6 See_Comment [A utomated message] The Eosinophils) system which ge nerated this result tra nsmitted reference range : <=4.0. The reference r kehinde was not used to int erpret this result as normal/abnormal . [facility] CenterOnligoeOTACNIPRAL6352-57-44 02:44:00 Test Item Value Reference Range Interpretation Comments Lymphocytes # (test code = Lymphocytes 1.8 1.0-5.5 #) [facility] CenterIjqanpaEUHLCVIREP4737-71-19 02:44:00 Test Item Value Reference Range Interpretation Comments Segs (test code = Segs) 59.9 45.0-75.0 [facility] CenterEirtufhOVEHYRERIF0700-97-86 02:44:00 Test Item Value Reference Range Interpretation Comments Lymphocytes (test code = Lymphocytes) 31.7 20.0-40.0 [facility] OBWEDML9846-71-94 09:22:00 Test Item Value Reference Range Interpretation [...] S Sulfamethoxazole (test code = 47) POCT-GLUCOSE [id number] 23:15:00 Test Item Value Reference Range Interpretation Comments POC-GLUCOSE METER 227 mg/dL 70-110 H TESTED AT [facility] ([facility] (test code [facility] [place] = 1538) [address] URINALYSIS W/ FPFRPQIZDDP4675-37-95 22:36:00 Test Item Value Reference Range Interpretation [...] 1663) SOURCE(BEAKER) (test code = 2795) KETONE, [id number] 22:32:00 Test Item Value Reference Range Interpretation Comments KETONES, BLOOD (BEAKER) (test code 0.6 mmol/L <0.4 H = 1103) BLOOD GAS, [id number] 22:30:00 Test Item Value Reference Range Interpretation [...] (test code = 1819) 21.0 % SCREEN, [id number] 22:29:00 Test Item Value Reference Range Interpretation Comments TEST URINE (BEAKER) (test Negative code = 583) TROPONIN [id number] 21:42:00 Test Item Value Reference Range Interpretation [...] CK-MB Reference Range:<5 Normal5-10 Borderline>10 AbnormalCOMPREHENSIVE METABOLIC [id number] 21:34:00 Test Item Value Reference Range Interpretation [...] S NOT APPLICABLE FOR DIALYSIS PATIEN TS. [id number] 21:32:00 Test Item Value Reference Range Interpretation Comments LIPASE (BEAKER) (test code = 749) 28 U/L 6-51 CBC W/PLT COUNT & AUTO PWIPQENLGCOQ2771-10-56 20:55:00 Test Item Value Reference Range Interpretation [...] L 0.00-0.20 (test code = 417) POCT-GLUCOSE [id number] 20:56:00 Test Item Value Reference Range Interpretation Comments POC-GLUCOSE METER 446 mg/dL 70-110 HH Notified Ciera Ortiz MD/TESTED AT ([facility]) (test code [address] [place] = 1538) [facility] [address] BEDSIDE GLUCOSE [id number] 15:13:00 Test Item Value Reference Range Interpretation Comments Comment1 (test code = Comment1) Notify RN/ [facility] GLUCOSE [id number] 15:13:00 Test Item Value Reference Range Interpretation Comments Gluc POC Lifscn (test code = Gluc POC 293 70-99 H Lifscn) [facility] GLUCOSE DENZJBS8483-04-09 04:18:00 Test Item Value Reference Range Interpretation Comments Comment1 (test code = Comment1) Notify KIRIT/ [facility] GLUCOSE [id number] 04:18:00 Test Item Value Reference Range Interpretation Comments Gluc POC Lifscn (test code = Gluc POC 233 70-99 H Lifscn) [facility]CuedpqoMQDFOIXUT3323-60-61 03:05:00 Test Item Value Reference Range Interpretation Comments Ketone Quantitative (test code = Ketone 0.14 N Quantitative) [facility] HospitalFxorvrwBWBGMFOIW1141-77-01 03:05:00 Test Item Value Reference Range Interpretation Comments AST (test code = AST) 8 See_Comment N [Auto mated message] The system which ge nerated this result transmit saran reference range : <=37. The reference range was not used to interpr et this result as justina l/abnormal. [facility] HospitalBojammdQLDMWMEWC0592-54-82 03:05:00 Test Item Value Reference Range Interpretation Comments Bili Total (test code = Bili Total) 0.2 0.2-1.3 N [facility] HospitalPrcfuagOWRWEXEIA0809-89-14 03:05:00 Test Item Value Reference Range Interpretation Comments CO2 (test code = CO2) 27 24-32 N [facility] HospitalSsgxkfuIQUYAITPU4054-71-66 03:05:00 Test Item Value Reference Range Interpretation Comments AGAP (test code = AGAP) 13.2 10.0-20.0 N [facility] HospitalLjklledNIAUIMIVB7039-81-22 03:05:00 Test Item Value Reference Range Interpretation Comments Calcium Lvl (test code = Calcium Lvl) 8.8 8.5-10.5 N [facility] HospitalXwhnrinWDQOCNGBM0158-90-00 03:05:00 Test Item Value Reference Range Interpretation Comments Total Protein (test code = Total 7.6 6.4-8.4 N Protein) [facility] HospitalQhwwmkyXGPBQTROI6940-76-18 03:05:00 Test Item Value Reference Range Interpretation Comments B/C Ratio (test code = B/C Ratio) 16 6-25 N [facility] HospitalIurgnbxOIWEAIIPK0695-21-70 03:05:00 Test Item Value Reference Range Interpretation Comments Albumin Lvl (test code = Albumin Lvl) 3.8 3.5-5.0 N [facility] HospitalTqszaouOBMQDTDLJ2744-81-26 03:05:00 Test Item Value Reference Range Interpretation Comments Globulin (test code = Globulin) 3.8 2.0-4.0 N [facility] HospitalEiefqbhFGYAKTLRC3267-29-11 03:05:00 Test Item Value Reference Range Interpretation Comments A/G Ratio (test code = A/G Ratio) 1.0 0.7-1.6 N [facility] HospitalSqufmdgSMUCUHZXP0627-27-01 03:05:00 Test Item Value Reference Range Interpretation Comments Alk Phos (test code = Alk Phos) 116 39-136 N [facility] HospitalUoecwqdENEHQOYGJ4465-10-41 03:05:00 Test Item Value Reference Range Interpretation Comments ALT (test code = ALT) 13 See_Comment N [Auto mated message] The system which ge nerated this result transmit saran reference range : <=65. The reference range was not used to interpr et this result as justina l/abnormal. [facility] HospitalXysibbaDEVEIJGRP3425-84-41 03:05:00 Test Item Value Reference Range Interpretation Comments Glucose Lvl (test code = Glucose Lvl) 476 70-99 A [facility] HospitalTbowffmEWSHNORSU7013-93-31 03:05:00 Test Item Value Reference Range Interpretation Comments Chloride Lvl (test code = Chloride Lvl) 98 95-109 N [facility] HospitalMbnnumrQIVXJJHSS8024-25-02 03:05:00 Test Item Value Reference Range Interpretation Comments Creatinine Lvl (test code = Creatinine 0.7 0.5-1.4 N Lvl) [facility] HospitalUtymmgcJKYHRSCKB0969-05-95 03:05:00 Test Item Value Reference Range Interpretation Comments BUN (test code = BUN) 11 7-22 N [facility] HospitalRjkrrrvAXOSONKMM8250-99-30 03:05:00 Test Item Value Reference Range Interpretation Comments Potassium Lvl (test code = Potassium 4.2 3.5-5.1 N Lvl) [facility] HospitalHwahfekLYJFLMPRK9790-90-22 03:05:00 Test Item Value Reference Range Interpretation Comments Sodium Lvl (test code = Sodium Lvl) 134 135-145 L [facility] CenterDsrveieDMXTWYWNCV2148-53-21 03:05:00 Test Item Value Reference Range Interpretation Comments RBC (test code = RBC) 4.41 4.20-5.40 N [facility] CenterZjoqdflLYVVAVSXTY5491-81-25 03:05:00 Test Item Value Reference Range Interpretation Comments WBC (test code = WBC) 5.7 3.7-10.4 N [facility] CenterTiodosrNKDTAISQTI7078-34-75 03:05:00 Test Item Value Reference Range Interpretation Comments MCHC (test code = MCHC) 33.2 32.0-36.0 N [facility] CenterLfdhbshVESYJSMYLJ2182-94-95 03:05:00 Test Item Value Reference Range Interpretation Comments Hgb (test code = Hgb) 12.9 12.0-16.0 N [facility] CenterHwqhjxrRWLQSESLUK8775-70-46 03:05:00 Test Item Value Reference Range Interpretation Comments RDW (test code = RDW) 13.8 11.5-14.5 N [facility] CenterRytpkruHDEBQDEQMV7989-45-07 03:05:00 Test Item Value Reference Range Interpretation Comments MCV (test code = MCV) 88.4 81.0-99.0 N [facility] CenterUurqtqsTVWZYQHCWK2536-47-91 03:05:00 Test Item Value Reference Range Interpretation Comments MCH (test code = MCH) 29.3 pg 27.0-31.0 N [facility] CenterYmydzsrVYCFMBUCET7528-36-32 03:05:00 Test Item Value Reference Range Interpretation Comments Hct (test code = Hct) 38.9 36.0-48.0 N [facility] CenterLtuagxsLJKDPOKEGR9009-84-20 03:05:00 Test Item Value Reference Range Interpretation Comments MPV (test code = MPV) 7.5 7.4-10.4 N [facility] CenterMzdpijsNFJWEVWJKT6415-09-23 03:05:00 Test Item Value Reference Range Interpretation Comments Platelet (test code = Platelet) 311 133-450 N [facility] CenterTjgkzmjSVYPJEWJCZ9954-16-11 03:05:00 Test Item Value Reference Range Interpretation Comments Segs (test code = Segs) 57.5 45.0-75.0 N [facility] CenterTirqbatNEYYASCJYX1398-48-69 03:05:00 Test Item Value Reference Range Interpretation Comments Basophils (test code = 0.5 See_Comment N [Aut omated message] The Basophils) system which ge nerated this result tra nsmitted reference range : <=1.0. The reference r kehinde was not used to int erpret this result as normal/abnormal . [facility] CenterHqsoaqnBWHTVEZPRT4580-94-51 03:05:00 Test Item Value Reference Range Interpretation Comments Eosinophils (test code = 1.5 See_Comment N [A utomated message] The Eosinophils) system which ge nerated this result tra nsmitted reference range : <=4.0. The reference r kehinde was not used to int erpret this result as normal/abnormal . [facility] CenterFyajtabNTRITHZCSZ0114-22-01 03:05:00 Test Item Value Reference Range Interpretation Comments Monocytes (test code = Monocytes) 5.3 2.0-12.0 N [facility] CenterGdozfomHHLWFFHHIX8112-31-51 03:05:00 Test Item Value Reference Range Interpretation Comments Lymphocytes (test code = Lymphocytes) 35.2 20.0-40.0 N [facility] CenterHhbqhisPISDRAVZEM7695-08-62 03:05:00 Test Item Value Reference Range Interpretation Comments Lymphocytes # (test code = Lymphocytes 2.0 1.0-5.5 N #) [facility] CenterTkwglgjUKLJRGMCSH7619-38-05 03:05:00 Test Item Value Reference Range Interpretation Comments Segs-Bands # (test code = Segs-Bands #) 3.3 1.5-8.1 N [facility] CenterAueloqiXXSQITSAWR2720-86-44 03:05:00 Test Item Value Reference Range Interpretation Comments Eosinophils # (test code 0.1 See_Comment N [A utomated message] The = Eosinophils #) system whic h generated this result tra nsmitted reference range : <=0.5. The reference r kehinde was not used to int erpret this result as normal/abnormal . [facility] CenterUebfpqmBRYDFYLRKQ0568-28-88 03:05:00 Test Item Value Reference Range Interpretation Comments Monocytes # (test code 0.3 See_Comment N [Aut omated message] The = Monocytes #) system which generated this result tra nsmitted reference range : <=0.8. The reference r kehinde was not used to int erpret this result as normal/abnormal . [facility] CenterQnfediwBHCSDSXHBJ2777-51-60 03:05:00 Test Item Value Reference Range Interpretation Comments Basophils # (test code 0.0 See_Comment N [Aut omated message] The = Basophils #) system which generated this result tra nsmitted reference range : <=0.2. The reference r kehinde was not used to int erpret this result as normal/abnormal . [facility]FewliihEVFSDGZIAJ8774-83-96 03:05:00 Test Item Value Reference Range Interpretation Comments UA Spec Grav (test code = UA Spec 1.010 1 N Grav) [facility] HospitalKgdjtvsPORZWBGHAX2219-93-55 03:05:00 Test Item Value Reference Range Interpretation Comments UA pH (test code = UA pH) 5.5 1 5.0-8.0 N [facility] HospitalNjwdsftTGEJJOZITT3259-08-81 03:05:00 Test Item Value Reference Range Interpretation Comments UA Color (test code = Yellow *NA*(11/28/2011 UA Color) 22:05:00) [facility] HospitalOyqtnuiMMDGLKCPOS4430-85-75 03:05:00 Test Item Value Reference Range Interpretation Comments UA Turbidity (test code = Clear (11/28/2011 N UA Turbidity) 22:05:00) [facility] HospitalPvctmhpLCGBGUQHWM7878-02-93 03:05:00 Test Item Value Reference Range Interpretation Comments UA Nitrite (test code Negative (11/28/2011 N = UA Nitrite) 22:05:00) [facility] HospitalOecqfmrZWXEDGZDFZ3341-92-59 03:05:00 Test Item Value Reference Range Interpretation Comments UA Leuk Est (test Negative (11/28/2011 N code = UA Leuk Est) 22:05:00) [facility] HospitalNlclpgyFWMXQMOFSB3055-74-37 03:05:00 Test Item Value Reference Range Interpretation Comments UA Urobilinogen (test code = UA 0.2 0.1-1.0 N Urobilinogen) [facility] HospitalDcyiihrWFXDARXHQE3740-96-43 03:05:00 Test Item Value Reference Range Interpretation Comments UA Glucose (test code = >=1000 mg/dL A UA Glucose) *ABN*(11/28/2011 22:05:00) [facility] HospitalPqjjcgqHRAYJBFVWN7499-14-12 03:05:00 Test Item Value Reference Range Interpretation Comments UA Ketones (test code Negative mg/dL = UA Ketones) *NA*(11/28/2011 22:05:00) [facility] HospitalNampywlKZEHSSHMDI3367-64-82 03:05:00 Test Item Value Reference Range Interpretation Comments UA Protein (test code Negative mg/dL N = UA Protein) (11/28/2011 22:05:00) [facility] HospitalRziznyhLKLUGMKZAG6402-08-40 03:05:00 Test Item Value Reference Range Interpretation Comments UA Blood (test code = Negative (11/28/2011 N UA Blood) 22:05:00) [facility] HospitalTkunuvbHLUPQUYTNY3056-87-15 03:05:00 Test Item Value Reference Range Interpretation Comments UA Bili (test code = Negative *NA*(11/28/2011 UA Bili) 22:05:00) [facility] HospitalSytmaqpHFRNOQNFQV9364-21-35 03:05:00 Test Item Value Reference Range Interpretation Comments UA Sq Epi (test code = Rare /LPF (11/28/2011 N UA Sq Epi) 22:05:00) [facility]CojdcdhBZXUTNEYRI9667-58-76 03:05:00 Test Item Value Reference Range Interpretation Comments UA Bacteria (test code Occasional /HPF N = UA Bacteria) (11/28/2011 22:05:00) [facility] HospitalDflqafmHGXJPYMPYD7745-66-88 03:05:00 Test Item Value Reference Range Interpretation Comments UA RBC (test 0-2 /HPF See_Comment N [Automated mes anabell] code = UA RBC) (11/28/2011 The system ich 22:05:00) generated this result transmitted ref erence range: <=2. The reference range was not used to int erpret this result as normal/abnormal . [facility] HospitalYoauxokDNSXBRCZAW8383-39-46 03:05:00 Test Item Value Reference Range Interpretation Comments UA WBC (test code = UA 0-2 /HPF (11/28/2011 N WBC) 22:05:00) [facility] HospitalHyattrlRIDCOVKZLH2195-51-89 03:05:00 Test Item Value Reference Range Interpretation Comments Micro? (test code = Performed (11/28/2011 N Micro?) 22:05:00) [facility] GLUCOSE [id number] 02:45:00 Test Item Value Reference Range Interpretation Comments Gluc POC Lifscn (test code = Gluc POC no gt 70-99 A Lifscn) [facility] GLUCOSE ZECWIBR0259-97-16 02:45:00 Test Item Value Reference Range Interpretation Comments Comment1 (test code = Comment1) Bhargavi RN/ [facility] GLUCOSE YNGEJQK4614-65-70 06:10:00 Test Item Value Reference Range Interpretation Comments Gluc POC Lifscn (test code = Gluc POC 224 70-99 H Lifscn) [facility] GLUCOSE FQAYGVO7776-31-65 05:04:00 Test Item Value Reference Range Interpretation Comments Gluc POC Lifscn (test code = Gluc POC 94 70-99 N Lifscn) [facility] HospitalWwdpzbdGICPKKDPW0763-03-95 03:06:00 Test Item Value Reference Range Interpretation Comments pO2 Korey (test code = pO2 Korey) 72 20-49 H [facility] HospitalMqjkvmeHLNJLPYFQ5019-17-46 03:06:00 Test Item Value Reference Range Interpretation Comments pCO2 Korey (test code = pCO2 Korey) 40 38-52 N [facility] HospitalCodunjhBWJPORGUU7652-54-51 03:06:00 Test Item Value Reference Range Interpretation Comments pH Korey (test code = pH Korey) 7.42 7.28-7.42 N [facility] HospitalZjgqvpnEDGUDOLEF8903-66-75 03:06:00 Test Item Value Reference Range Interpretation Comments Flow Korey (test code = Flow Korey) 0.0 [facility] HospitalGxhxjjfSIJFTVGEZ5050-90-81 03:06:00 Test Item Value Reference Range Interpretation Comments Mode Korey (test code = Rm Air (10/24/2011 N Mode Korey) 22:06:00) [facility] HospitalPpmvglsOLHXEEVJC5370-17-75 03:06:00 Test Item Value Reference Range Interpretation Comments O2 Sat Korey (test code = O2 Sat Korey) 95.0 40.0-70.0 H [facility] HospitalAnjwibrUCDZZALGG5618-77-48 03:06:00 Test Item Value Reference Range Interpretation Comments BE Korey (test code = 1 See_Comment N [Automa saran message] The BE Korey) system which ge nerated this result transmit saran reference range : <=2. The reference range was not used to interpr et this result as justina l/abnormal. [facility] HospitalOokgaevOCLYNWSVP2414-28-09 03:06:00 Test Item Value Reference Range Interpretation Comments HCO3 Korey (test code = HCO3 Korey) 26 22-26 N [facility] HospitalIzprxsfORCFLGKDV4388-46-51 03:05:00 Test Item Value Reference Range Interpretation Comments Lipase Lvl (test code = Lipase Lvl) 181 73-393 N [facility] HospitalTumjbciOUAGFMFTH3274-77-19 03:05:00 Test Item Value Reference Range Interpretation Comments Amylase Lvl (test code = Amylase Lvl) 153 25-115 H [facility] HospitalWernbfbZTJVCWRSD0072-16-58 03:05:00 Test Item Value Reference Range Interpretation Comments BUN (test code = BUN) 19 7-22 N [facility] HospitalGptxxqpNZOGUAVKM4681-03-43 03:05:00 Test Item Value Reference Range Interpretation Comments Calcium Lvl (test code = Calcium Lvl) 8.4 8.5-10.5 L [facility] HospitalXnuotprOGZPSDLMO6750-84-07 03:05:00 Test Item Value Reference Range Interpretation Comments Glucose Lvl (test code = Glucose Lvl) 431 70-99 A [facility] HospitalVuvcazhGMDJFCBGB2875-69-87 03:05:00 Test Item Value Reference Range Interpretation Comments Chloride Lvl (test code = Chloride Lvl) 100 95-109 N [facility] HospitalZjeadztBKTYSZFUD1627-39-07 03:05:00 Test Item Value Reference Range Interpretation Comments Albumin Lvl (test code = Albumin Lvl) 3.8 3.5-5.0 N [facility] HospitalExskrgeQBVTXEUWC0127-10-81 03:05:00 Test Item Value Reference Range Interpretation Comments Globulin (test code = Globulin) 3.7 2.0-4.0 N [facility] HospitalBfmmhmnVCPPERMTV6818-85-12 03:05:00 Test Item Value Reference Range Interpretation Comments CO2 (test code = CO2) 27 24-32 N [facility] HospitalRfnkbtxKCJTOVBQP8186-14-52 03:05:00 Test Item Value Reference Range Interpretation Comments AGAP (test code = AGAP) 12.2 10.0-20.0 N [facility] HospitalRkqjmooYULXFHNUD9307-91-91 03:05:00 Test Item Value Reference Range Interpretation Comments Potassium Lvl (test code = Potassium 4.2 3.5-5.1 N Lvl) [facility] HospitalLttxybpVJQYJHFLJ9309-78-18 03:05:00 Test Item Value Reference Range Interpretation Comments Creatinine Lvl (test code = Creatinine 0.8 0.5-1.4 N Lvl) [facility] HospitalDfwaynuPWWHHYPXE0376-19-30 03:05:00 Test Item Value Reference Range Interpretation Comments Sodium Lvl (test code = Sodium Lvl) 135 135-145 N [facility] HospitalKbpowqvYTHJLZUKX9818-63-27 03:05:00 Test Item Value Reference Range Interpretation Comments B/C Ratio (test code = B/C Ratio) 24 6-25 N [facility] HospitalNiwcqjgVABBRALWF3215-48-91 03:05:00 Test Item Value Reference Range Interpretation Comments Total Protein (test code = Total 7.5 6.4-8.4 N Protein) [facility] HospitalAfosqvpHKLAZTYAG7867-36-21 03:05:00 Test Item Value Reference Range Interpretation Comments AST (test code = AST) 10 See_Comment N [Auto mated message] The system which ge nerated this result transmit saran reference range : <=37. The reference range was not used to interpr et this result as justina l/abnormal. [facility] HospitalVclsvopHPIWTISCM5204-48-86 03:05:00 Test Item Value Reference Range Interpretation Comments Alk Phos (test code = Alk Phos) 100 39-136 N [facility] HospitalFbnzjzcATPIJTCCO5318-84-24 03:05:00 Test Item Value Reference Range Interpretation Comments Bili Total (test code = Bili Total) 0.3 0.2-1.3 N [facility] HospitalUoewrvcSFNHHKONA4507-14-18 03:05:00 Test Item Value Reference Range Interpretation Comments A/G Ratio (test code = A/G Ratio) 1.0 0.7-1.6 N [facility] HospitalSrkviimTPGXRBJEU0527-43-22 03:05:00 Test Item Value Reference Range Interpretation Comments ALT (test code = ALT) 17 See_Comment N [Auto mated message] The system which ge nerated this result transmit saran reference range : <=65. The reference range was not used to interpr et this result as justina l/abnormal. [facility]UrtzeliJDWPZEABU7775-59-09 03:05:00 Test Item Value Reference Range Interpretation Comments Ketone Quantitative (test code = Ketone 0.22 N Quantitative) [facility] CenterIivxgqrKKOVNSHSWS7005-69-14 03:05:00 Test Item Value Reference Range Interpretation Comments Eosinophils # (test code 0.1 See_Comment N [A utomated message] The = Eosinophils #) system whic h generated this result tra nsmitted reference range : <=0.5. The reference r kehinde was not used to int erpret this result as normal/abnormal . [facility] CenterEvxrbfaTJPLIINOXQ9717-06-34 03:05:00 Test Item Value Reference Range Interpretation Comments Lymphocytes # (test code = Lymphocytes 2.0 1.0-5.5 N #) [facility] CenterBztjzzsRADFQCAGSN4665-98-10 03:05:00 Test Item Value Reference Range Interpretation Comments Basophils # (test code 0.0 See_Comment N [Aut omated message] The = Basophils #) system which generated this result tra nsmitted reference range : <=0.2. The reference r kehinde was not used to int erpret this result as normal/abnormal . [facility] CenterYhwlvzzYZWTFOVPZM2071-94-08 03:05:00 Test Item Value Reference Range Interpretation Comments Monocytes # (test code 0.4 See_Comment N [Aut omated message] The = Monocytes #) system which generated this result tra nsmitted reference range : <=0.8. The reference r kehinde was not used to int erpret this result as normal/abnormal . [facility] CenterElzvwbtJOJCHQMLEM8786-44-93 03:05:00 Test Item Value Reference Range Interpretation Comments Lymphocytes (test code = Lymphocytes) 29.4 20.0-40.0 N [facility] CenterCidwgdrIIMTQDTUVX4514-68-44 03:05:00 Test Item Value Reference Range Interpretation Comments Segs-Bands # (test code = Segs-Bands #) 4.3 1.5-8.1 N [facility] CenterYyiiixxRYOMUZMQLD7487-92-77 03:05:00 Test Item Value Reference Range Interpretation Comments Monocytes (test code = Monocytes) 5.7 2.0-12.0 N [facility] CenterKyxiuizAKPJYALAAN6288-75-02 03:05:00 Test Item Value Reference Range Interpretation Comments Basophils (test code = 0.4 See_Comment N [Aut omated message] The Basophils) system which ge nerated this result tra nsmitted reference range : <=1.0. The reference r kehinde was not used to int erpret this result as normal/abnormal . [facility] CenterRkmrkyiENNWMEMYHL3883-72-12 03:05:00 Test Item Value Reference Range Interpretation Comments Eosinophils (test code = 1.2 See_Comment N [A utomated message] The Eosinophils) system which ge nerated this result tra nsmitted reference range : <=4.0. The reference r kehinde was not used to int erpret this result as normal/abnormal . [facility] CenterIlikmdePNISHZZNCU1252-96-30 03:05:00 Test Item Value Reference Range Interpretation Comments Segs (test code = Segs) 63.3 45.0-75.0 N [facility] CenterXrnsflpCUJUKQFJHY4878-08-99 03:05:00 Test Item Value Reference Range Interpretation Comments RDW (test code = RDW) 14.0 11.5-14.5 N [facility] CenterOhslzgaIWBSERWONV1845-47-01 03:05:00 Test Item Value Reference Range Interpretation Comments Platelet (test code = Platelet) 271 133-450 N [facility] CenterTptpbkvWRURPSNJOV0065-60-64 03:05:00 Test Item Value Reference Range Interpretation Comments MPV (test code = MPV) 8.0 7.4-10.4 N [facility] CenterKdctffwARWQGJVEDR3792-09-88 03:05:00 Test Item Value Reference Range Interpretation Comments Hgb (test code = Hgb) 13.3 12.0-16.0 N [facility] CenterDrqeixzBZDPZIAHYV0788-55-28 03:05:00 Test Item Value Reference Range Interpretation Comments Hct (test code = Hct) 39.4 36.0-48.0 N [facility] CenterYatqlxtZQUJMQXBRB4751-67-65 03:05:00 Test Item Value Reference Range Interpretation Comments MCV (test code = MCV) 86.2 81.0-99.0 N [facility] CenterWcrvhxdPWOIGMGSQQ2639-89-76 03:05:00 Test Item Value Reference Range Interpretation Comments MCH (test code = MCH) 29.1 pg 27.0-31.0 N [facility] CenterDneugqwXHEVKTZBTA1454-32-11 03:05:00 Test Item Value Reference Range Interpretation Comments MCHC (test code = MCHC) 33.8 32.0-36.0 N [facility] CenterVffhyfkIWPVRMRZAV4834-93-78 03:05:00 Test Item Value Reference Range Interpretation Comments WBC (test code = WBC) 6.9 3.7-10.4 N [facility] CenterHlmygeyDUKYBHQPDD9177-88-73 03:05:00 Test Item Value Reference Range Interpretation Comments RBC (test code = RBC) 4.57 4.20-5.40 N [facility]QcesjpmZATGDJMLIO9282-13-04 03:05:00 Test Item Value Reference Range Interpretation Comments UA Nitrite (test code Positive A = UA Nitrite) *ABN*(10/24/2011 22:05:00) [facility] HospitalObhvfjvRFMFIDXVEZ3729-64-56 03:05:00 Test Item Value Reference Range Interpretation Comments UA Leuk Est (test Negative (10/24/2011 N code = UA Leuk Est) 22:05:00) [facility] HospitalQpkpochIUDSKSBXGK7300-50-71 03:05:00 Test Item Value Reference Range Interpretation Comments UA Protein (test code Negative (10/24/2011 N = UA Protein) 22:05:00) [facility] HospitalMiblantERJKDUBMCK5685-07-43 03:05:00 Test Item Value Reference Range Interpretation Comments UA Glucose (test code = >=1000 mg/dL A UA Glucose) *ABN*(10/24/2011 22:05:00) [facility] HospitalBaklglgPFROWBVSAW9987-58-67 03:05:00 Test Item Value Reference Range Interpretation Comments UA pH (test code = UA pH) 6.0 1 5.0-8.0 N [facility] HospitalRwzwovzLIIMXBOUFH8016-66-31 03:05:00 Test Item Value Reference Range Interpretation Comments UA Spec Grav (test code = UA Spec 1.015 1 N Grav) [facility] HospitalUjkgkppUYOCUGFIPE5906-08-03 03:05:00 Test Item Value Reference Range Interpretation Comments UA Color (test code = Yellow *NA*(10/24/2011 UA Color) 22:05:00) [facility] HospitalFrtqbsiGGPWVFRTTF3536-09-79 03:05:00 Test Item Value Reference Range Interpretation Comments UA Turbidity (test code = Clear (10/24/2011 N UA Turbidity) 22:05:00) [facility] HospitalPontwqjGSTPTVZALI3427-27-45 03:05:00 Test Item Value Reference Range Interpretation Comments UA Urobilinogen (test code = UA 0.2 0.1-1.0 N Urobilinogen) [facility] HospitalWalymfrAYYAEUBZYV0934-18-93 03:05:00 Test Item Value Reference Range Interpretation Comments UA Ketones (test code Negative = UA Ketones) *NA*(10/24/2011 22:05:00) [facility] HospitalHvwarmvKFGCFSSKDU2544-45-96 03:05:00 Test Item Value Reference Range Interpretation Comments UA Blood (test code = Negative (10/24/2011 N UA Blood) 22:05:00) [facility] HospitalElmqnwjNAXHTKBNJI7581-53-57 03:05:00 Test Item Value Reference Range Interpretation Comments UA Bili (test code = Negative *NA*(10/24/2011 UA Bili) 22:05:00) [facility] HospitalQpuznrnUTXGUDAAQZ7555-66-09 03:05:00 Test Item Value Reference Range Interpretation Comments UA Mucus (test code = Rare /LPF (10/24/2011 N UA Mucus) 22:05:00) [facility] HospitalDwbbvjoCAVAWCJSHH4550-13-72 03:05:00 Test Item Value Reference Range Interpretation Comments UA Bacteria (test code Moderate /HPF N = UA Bacteria) (10/24/2011 22:05:00) [facility] HospitalZpghksxUQDDODMTOZ7544-85-09 03:05:00 Test Item Value Reference Range Interpretation Comments UA RBC (test 0-2 /HPF See_Comment N [Automated mes anabell] code = UA RBC) (10/24/2011 The system ich 22:05:00) generated this result transmitted ref erence range: <=2. The reference range was not used to int erpret this result as normal/abnormal . [facility] HospitalKfumbtoYVJUADJWFL7090-87-01 03:05:00 Test Item Value Reference Range Interpretation Comments Micro? (test code = Performed (10/24/2011 N Micro?) 22:05:00) [facility] HospitalXwkxemnAVLPFCOWCI7739-47-00 03:05:00 Test Item Value Reference Range Interpretation Comments UA WBC (test code = UA 6-10 /HPF A WBC) *ABN*(10/24/2011 22:05:00) [facility] HospitalSwzulpeNPDNGPEMYI5441-55-75 03:05:00 Test Item Value Reference Range Interpretation Comments UA Sq Epi (test code = Rare /LPF (10/24/2011 N UA Sq Epi) 22:05:00) [facility] GLUCOSE NYTHFRX5263-34-40 02:43:00 Test Item Value Reference Range Interpretation Comments Comment1 (test code = Comment1) Notify RN/ [facility] GLUCOSE NHIGDYG3215-73-40 02:43:00 Test Item Value Reference Range Interpretation Comments Gluc POC Lifscn (test code = Gluc POC no gt 70-99 A Lifscn) [facility] GLUCOSE CZXLTKM1784-81-93 08:15:00 Test Item Value Reference Range Interpretation Comments Gluc POC Lifscn (test code = Gluc POC 273 65-110 H Lifscn) [facility] GLUCOSE BULNGJW2090-16-81 07:07:00 Test Item Value Reference Range Interpretation Comments Comment1 (test code = Comment1) Notify RN/ [facility] GLUCOSE LVITPTL3704-40-64 07:07:00 Test Item Value Reference Range Interpretation Comments Gluc POC Lifscn (test code = Gluc POC no gt 65-110 A Lifscn) [facility] HospitalOiaxutaVUZGERMUM9583-63-64 05:10:00 Test Item Value Reference Range Interpretation Comments Amylase Lvl (test code = Amylase Lvl) 121 25-115 H [facility] HospitalIzwawrfIPKGQODRH8779-23-82 05:10:00 Test Item Value Reference Range Interpretation Comments Creatinine Lvl (test code = Creatinine 0.8 0.5-1.4 N Lvl) [facility] HospitalYwczramEFXIFWQAW9264-58-25 05:10:00 Test Item Value Reference Range Interpretation Comments CO2 (test code = CO2) 26 24-32 N [facility] HospitalRjczwpwFOWNXOFAG1588-45-65 05:10:00 Test Item Value Reference Range Interpretation Comments Chloride Lvl (test code = Chloride Lvl) 96 95-109 N [facility] HospitalUasyyorXSJIPNUXK1514-14-31 05:10:00 Test Item Value Reference Range Interpretation Comments Potassium Lvl (test code = Potassium 3.9 3.5-5.1 N Lvl) [facility] HospitalJmolqsxIRASYEKHM9807-29-50 05:10:00 Test Item Value Reference Range Interpretation Comments AGAP (test code = AGAP) 12.9 10.0-20.0 N [facility] HospitalSakvsnzYWUSSFAOU3392-36-48 05:10:00 Test Item Value Reference Range Interpretation Comments Albumin Lvl (test code = Albumin Lvl) 4.0 3.5-5.0 N [facility] HospitalVtdcppaKTVUCIUTY6412-63-12 05:10:00 Test Item Value Reference Range Interpretation Comments Total Protein (test code = Total 7.8 6.4-8.4 N Protein) [facility] HospitalKpdanyiEOZQZTDRC1651-84-51 05:10:00 Test Item Value Reference Range Interpretation Comments B/C Ratio (test code = B/C Ratio) 15 6-25 N [facility] HospitalNpgxjhnMAPUCHHQB1899-23-62 05:10:00 Test Item Value Reference Range Interpretation Comments Sodium Lvl (test code = Sodium Lvl) 131 135-145 L [facility] HospitalRomgouuGUFZOFZYW8330-68-98 05:10:00 Test Item Value Reference Range Interpretation Comments A/G Ratio (test code = A/G Ratio) 1.1 0.7-1.6 N [facility] HospitalLfsbqpoBIECMDAAN4844-50-10 05:10:00 Test Item Value Reference Range Interpretation Comments Globulin (test code = Globulin) 3.8 2.0-4.0 N [facility] HospitalBhcqbepWKNQTZDNY2598-05-05 05:10:00 Test Item Value Reference Range Interpretation Comments Calcium Lvl (test code = Calcium Lvl) 8.6 8.5-10.5 N [facility] HospitalLmobtroDQPCINJWL9443-19-79 05:10:00 Test Item Value Reference Range Interpretation Comments AST (test code = AST) 11 See_Comment N [Auto mated message] The system which ge nerated this result transmit saran reference range : <=37. The reference range was not used to interpr et this result as justina l/abnormal. [facility] HospitalMqowlfcNGCYHRQWR2888-50-86 05:10:00 Test Item Value Reference Range Interpretation Comments Bili Total (test code = Bili Total) 0.4 0.2-1.3 N [facility] HospitalBwcdcwtVWIKYFKDX7683-52-02 05:10:00 Test Item Value Reference Range Interpretation Comments Alk Phos (test code = Alk Phos) 113 39-136 N [facility] HospitalIilhsdvCSKUQSTVI3536-99-14 05:10:00 Test Item Value Reference Range Interpretation Comments ALT (test code = ALT) 15 See_Comment N [Auto mated message] The system which ge nerated this result transmit saran reference range : <=65. The reference range was not used to interpr et this result as justina l/abnormal. [facility] HospitalXdlyypiPRESWEBIL0816-68-35 05:10:00 Test Item Value Reference Range Interpretation Comments Glucose Lvl (test code = Glucose Lvl) 544 A [facility] HospitalUscxvuzITECROBGX5141-79-21 05:10:00 Test Item Value Reference Range Interpretation Comments BUN (test code = BUN) 12 7-22 N [facility] HospitalOqfpaseJIULNUQSX7630-23-21 05:10:00 Test Item Value Reference Range Interpretation Comments Lipase Lvl (test code = Lipase Lvl) 198 73-393 N [facility] HospitalNhxtippAEUXKRFMD4230-96-86 05:10:00 Test Item Value Reference Range Interpretation Comments Ketone Quantitative (test code = Ketone 0.36 H Quantitative) [facility] CenterYtgroaxGHUAIGTSKO9439-85-16 05:10:00 Test Item Value Reference Range Interpretation Comments Platelet (test code = Platelet) 271 133-450 N [facility] HospitalSixqzunCWVARZCNOM0708-33-54 05:10:00 Test Item Value Reference Range Interpretation Comments MCHC (test code = MCHC) 34.3 32.0-36.0 N [facility] CenterEiqraiaHDBOAJTDHE5103-58-86 05:10:00 Test Item Value Reference Range Interpretation Comments MPV (test code = MPV) 7.9 7.4-10.4 N [facility] CenterBpdcrlkLSNUEHGOCH6567-04-98 05:10:00 Test Item Value Reference Range Interpretation Comments Hgb (test code = Hgb) 13.0 12.0-16.0 N [facility] CenterRnsmexnSTRYPWIXAX6428-50-88 05:10:00 Test Item Value Reference Range Interpretation Comments MCH (test code = MCH) 29.5 pg 27.0-31.0 N [facility] CenterGuctqpoLKYBVQHTIO3402-17-48 05:10:00 Test Item Value Reference Range Interpretation Comments Hct (test code = Hct) 38.1 36.0-48.0 N [facility] CenterIjhioymRFWXAPNDIV9717-34-21 05:10:00 Test Item Value Reference Range Interpretation Comments MCV (test code = MCV) 86.0 81.0-99.0 N [facility] CenterOcozztiWAFSULSVCH9331-59-07 05:10:00 Test Item Value Reference Range Interpretation Comments RBC (test code = RBC) 4.43 4.20-5.40 N [facility] CenterMlaoubnINAHZORSSG3854-60-35 05:10:00 Test Item Value Reference Range Interpretation Comments WBC (test code = WBC) 5.9 3.7-10.4 N [facility] CenterBifgbdcYRMLRDVWAJ4634-00-94 05:10:00 Test Item Value Reference Range Interpretation Comments RDW (test code = RDW) 14.0 11.5-14.5 N [facility] CenterCpvxjbaBFGJEZDCPQ8594-27-32 05:10:00 Test Item Value Reference Range Interpretation Comments Basophils # (test code 0.0 See_Comment N [Aut omated message] The = Basophils #) system which generated this result tra nsmitted reference range : <=0.2. The reference r kehinde was not used to int erpret this result as normal/abnormal . [facility] CenterKuyzaczIBJRYBCEQH9287-37-17 05:10:00 Test Item Value Reference Range Interpretation Comments Lymphocytes # (test code = Lymphocytes 1.7 1.0-5.5 N #) [facility] CenterPfkjbsiHSROGVUYSQ0218-24-32 05:10:00 Test Item Value Reference Range Interpretation Comments Monocytes # (test code 0.3 See_Comment N [Aut omated message] The = Monocytes #) system which generated this result tra nsmitted reference range : <=0.8. The reference r kehinde was not used to int erpret this result as normal/abnormal . [facility] CenterFrotctpOCLHBJCSGM2338-30-65 05:10:00 Test Item Value Reference Range Interpretation Comments Basophils (test code = 0.6 See_Comment N [Aut omated message] The Basophils) system which ge nerated this result tra nsmitted reference range : <=1.0. The reference r kehinde was not used to int erpret this result as normal/abnormal . [facility] CenterXgombsyQZNAYUQPWO1500-84-56 05:10:00 Test Item Value Reference Range Interpretation Comments Segs-Bands # (test code = Segs-Bands #) 3.8 1.5-8.1 N [facility] CenterAvfzkffEUTFLKSVBV9658-75-88 05:10:00 Test Item Value Reference Range Interpretation Comments Eosinophils # (test code 0.1 See_Comment N [A utomated message] The = Eosinophils #) system [facility] h generated this result tra nsmitted reference range : <=0.5. The reference r kehinde was not used to int erpret this result as normal/abnormal . [facility] CenterAyqapovRAAATUCDNZ0124-94-39 05:10:00 Test Item Value Reference Range Interpretation Comments Monocytes (test code = Monocytes) 4.7 2.0-12.0 N [facility] CenterMnxzxzqQSRUNMRRPO2599-31-53 05:10:00 Test Item Value Reference Range Interpretation Comments Lymphocytes (test code = Lymphocytes) 28.9 20.0-40.0 N [facility] CenterArzvclbBUVLKULIAU5446-73-03 05:10:00 Test Item Value Reference Range Interpretation Comments Eosinophils (test code = 2.5 See_Comment N [A utomated message] The Eosinophils) system which ge nerated this result tra nsmitted reference range : <=4.0. The reference r kehinde was not used to int erpret this result as normal/abnormal . [facility] CenterGwmlajfFQIWFQOSXG1041-22-41 05:10:00 Test Item Value Reference Range Interpretation Comments Segs (test code = Segs) 63.3 45.0-75.0 N [facility] HospitalTkaxbxoYTMDNNWMHZ0811-76-79 05:10:00 Test Item Value Reference Range Interpretation Comments UA RBC (test 0-2 /HPF See_Comment N [Automated mes anabell] code = UA RBC) (05/22/2011 The system [facility] 23:10:00) generated this result transmitted ref erence range: <=2. The reference range was not used to int erpret this result as normal/abnormal . [facility] HospitalLqypidsDCPHOPWHWS4585-20-99 05:10:00 Test Item Value Reference Range Interpretation Comments UA Bacteria (test code Occasional /HPF N = UA Bacteria) (05/22/2011 23:10:00) [facility] HospitalNmqjqggGNLFMHJIAJ4153-88-78 05:10:00 Test Item Value Reference Range Interpretation Comments UA Leuk Est (test Negative (05/22/2011 N code = UA Leuk Est) 23:10:00) [facility] HospitalIqjpusaOZALLMVVTP6916-46-31 05:10:00 Test Item Value Reference Range Interpretation Comments UA Ketones (test code Negative = UA Ketones) *NA*(05/22/2011 23:10:00) [facility] HospitalKxziylnFDNLNOTAJB6011-74-63 05:10:00 Test Item Value Reference Range Interpretation Comments UA Glucose (test code = >=1000 mg/dL A UA Glucose) *ABN*(05/22/2011 23:10:00) [facility] HospitalCdokeujQFNFHONTHK6940-42-85 05:10:00 Test Item Value Reference Range Interpretation Comments UA Protein (test code Negative (05/22/2011 N = UA Protein) 23:10:00) [facility] HospitalTsgbtyuVUTIAXBRWH7664-63-94 05:10:00 Test Item Value Reference Range Interpretation Comments UA pH (test code = UA pH) 5.0 1 5.0-8.0 N [facility] HospitalZsnthyuXAJNHAYQSZ3699-60-20 05:10:00 Test Item Value Reference Range Interpretation Comments UA WBC (test code = UA 3-5 /HPF (05/22/2011 N WBC) 23:10:00) [facility] HospitalJedefygVEJJZWOCII3314-76-24 05:10:00 Test Item Value Reference Range Interpretation Comments UA Sq Epi (test code = Rare /LPF (05/22/2011 N UA Sq Epi) 23:10:00) [facility] HospitalIzjhjcmVCHZXWIBQA2425-89-93 05:10:00 Test Item Value Reference Range Interpretation Comments UA Urobilinogen (test code = UA 0.2 0.1-1.0 N Urobilinogen) [facility] HospitalFfbjqsmRBEANNWVKO2532-53-79 05:10:00 Test Item Value Reference Range Interpretation Comments UA Nitrite (test code Negative (05/22/2011 N = UA Nitrite) 23:10:00) [facility] HospitalGcxvxbtOASXBTEYFX9480-45-42 05:10:00 Test Item Value Reference Range Interpretation Comments UA Bili (test code = Negative *NA*(05/22/2011 UA Bili) 23:10:00) [facility] HospitalMwsnjbsASZEDQESCD7086-38-93 05:10:00 Test Item Value Reference Range Interpretation Comments UA Blood (test code = Negative (05/22/2011 N UA Blood) 23:10:00) [facility] HospitalKsidkvkGNHMNIRAQR3208-46-46 05:10:00 Test Item Value Reference Range Interpretation Comments Micro? (test code = Performed (05/22/2011 N Micro?) 23:10:00) [facility] HospitalNcoyxpaGNRTVBAKWC1674-95-21 05:10:00 Test Item Value Reference Range Interpretation Comments UA Color (test code = Yellow *NA*(05/22/2011 UA Color) 23:10:00) [facility] HospitalFojcuoiCDDTWMAGOC9035-54-45 05:10:00 Test Item Value Reference Range Interpretation Comments UA Turbidity (test code = Clear (05/22/2011 N UA Turbidity) 23:10:00) [facility] HospitalNvxxsaqZRUVYSGWEF0321-29-82 05:10:00 Test Item Value Reference Range Interpretation Comments UA Spec Grav (test *NA*(05/22/2011 code = UA Spec Grav) 23:10:00) [facility] HospitalKazfsjxQhrlbwcefpsq1657-67-12 05:10:00 Test Item Value Reference Range Interpretation Comments Culture: Urine (test code = Culture: Urine) [facility] HospitalYuatcpcHWWUIUKVHM1683-76-81 00:16:00 Test Item Value Reference Range Interpretation Comments UA Nitrite (test code Negative (05/07/2011 N = UA Nitrite) 18:16:00) [facility] HospitalEyztqilPABHZPSIBO4181-32-42 00:16:00 Test Item Value Reference Range Interpretation Comments UA Urobilinogen (test code = UA 0.2 0.1-1.0 N Urobilinogen) [facility] HospitalMrbnvvnCPBADCSKPW7493-05-18 00:16:00 Test Item Value Reference Range Interpretation Comments UA Bili (test code = Negative *NA*(05/07/2011 UA Bili) 18:16:00) [facility] HospitalFzxyhobECNKIQKPDF5149-66-27 00:16:00 Test Item Value Reference Range Interpretation Comments UA Blood (test code = Large *ABN*(05/07/2011 A UA Blood) 18:16:00) [facility] HospitalWmtfjunABRYSFEZRB6213-52-75 00:16:00 Test Item Value Reference Range Interpretation Comments UA RBC (test 6-10 /HPF See_Comment A [Automated mes anabell] code = UA RBC) *ABN*(05/07/2011 The syste m which 18:16:00) generated this result transmitted ref erence range: <=2. The reference range was not used to int erpret this result as normal/abnormal . [facility] HospitalSxeixhqRZITCHAVGF6864-36-64 00:16:00 Test Item Value Reference Range Interpretation Comments UA Bacteria (test code Occasional /HPF N = UA Bacteria) (05/07/2011 18:16:00) [facility] HospitalMxcljbuNGMSOMFSUT5279-08-75 00:16:00 Test Item Value Reference Range Interpretation Comments Micro? (test code = Performed (05/07/2011 N Micro?) 18:16:00) [facility] HospitalDkpenbkEQWKJLLWFB8356-06-85 00:16:00 Test Item Value Reference Range Interpretation Comments UA Sq Epi (test code = Few /LPF (05/07/2011 N UA Sq Epi) 18:16:00) [facility] HospitalFcvytopHTKNNFMHJN7054-74-81 00:16:00 Test Item Value Reference Range Interpretation Comments UA Leuk Est (test Negative (05/07/2011 N code = UA Leuk Est) 18:16:00) [facility] HospitalNrdsekkXWTDHWCZBY3596-44-44 00:16:00 Test Item Value Reference Range Interpretation Comments UA WBC (test code = UA 21-50 /HPF A WBC) *ABN*(05/07/2011 18:16:00) [facility] HospitalRatlmooBMAPGZESES4621-51-06 00:16:00 Test Item Value Reference Range Interpretation Comments UA Ketones (test code = Trace A UA Ketones) *ABN*(05/07/2011 18:16:00) [facility] HospitalRpztahtRWXRJSQKPZ7109-87-96 00:16:00 Test Item Value Reference Range Interpretation Comments UA Glucose (test code = >=1000 mg/dL A UA Glucose) *ABN*(05/07/2011 18:16:00) [facility] HospitalLbglpxuYHYZIQXXYA8124-28-32 00:16:00 Test Item Value Reference Range Interpretation Comments UA Protein (test code Negative (05/07/2011 N = UA Protein) 18:16:00) [facility] HospitalOkvznylXMEVZHEEMD0257-79-13 00:16:00 Test Item Value Reference Range Interpretation Comments UA Spec Grav (test code = UA Spec 1.010 1 N Grav) [facility] HospitalBevyulgUZMLRHDSTA5158-94-66 00:16:00 Test Item Value Reference Range Interpretation Comments UA Turbidity (test code = Clear (05/07/2011 N UA Turbidity) 18:16:00) [facility]zgxhkgWDJJHUPBJJ9973-23-26 00:16:00 Test Item Value Reference Range Interpretation Comments UA pH (test code = UA pH) 6.0 1 5.0-8.0 N [facility] HospitalMyfgkbxLWFCNPCQSO3627-76-60 00:16:00 Test Item Value Reference Range Interpretation Comments UA Color (test code = Yellow *NA*(05/07/2011 UA Color) 18:16:00) [facility] SSKTTYB7391-08-14 06:51:00 Test Item Value Reference Range Interpretation Comments Gluc POC Lifscn (test code = Gluc POC 149 65-110 H Lifscn) [facility] HospitalWrfroksVACGNFSPK6443-93-27 04:20:00 Test Item Value Reference Range Interpretation Comments Ketones Qual (test Negative (04/19/2011 N code = Ketones Qual) 22:20:00) [facility] HospitalJbreptjWNYKVMTCH9516-63-16 04:20:00 Test Item Value Reference Range Interpretation Comments Globulin (test code = Globulin) 4.1 2.0-4.0 H [facility] HospitalXaurmfsOYDFLSYAF2998-80-22 04:20:00 Test Item Value Reference Range Interpretation Comments B/C Ratio (test code = B/C Ratio) 15 6-25 N [facility] HospitalNjyflvkRRBVUQUUH4826-19-75 04:20:00 Test Item Value Reference Range Interpretation Comments Calcium Lvl (test code = Calcium Lvl) 9.2 8.5-10.5 N [facility] HospitalWlbfvjoEWRJDKFXM6436-70-15 04:20:00 Test Item Value Reference Range Interpretation Comments Chloride Lvl (test code = Chloride Lvl) 96 95-109 N [facility] HospitalHolwlznZGVTOXNLV3856-06-75 04:20:00 Test Item Value Reference Range Interpretation Comments AGAP (test code = AGAP) 16.2 10.0-20.0 N [facility] HospitalMlhrcmhGFKZOWDUW5125-03-13 04:20:00 Test Item Value Reference Range Interpretation Comments CO2 (test code = CO2) 24 24-32 N [facility] HospitalPansqzuXDZMKZSGM6467-93-29 04:20:00 Test Item Value Reference Range Interpretation Comments Albumin Lvl (test code = Albumin Lvl) 4.0 3.5-5.0 N [facility] HospitalBwptszkQMBEPQZFK6621-22-95 04:20:00 Test Item Value Reference Range Interpretation Comments Total Protein (test code = Total 8.1 6.4-8.4 N Protein) [facility] HospitalNxsiwvqARBLSEPNM0104-00-31 04:20:00 Test Item Value Reference Range Interpretation Comments Bili Total (test code = Bili Total) 0.4 0.2-1.3 N [facility] HospitalZdnffxiFKYWEVJSL3124-41-95 04:20:00 Test Item Value Reference Range Interpretation Comments Alk Phos (test code = Alk Phos) 92 39-136 N [facility] HospitalMcmfeedFOBTRWFHE3265-37-98 04:20:00 Test Item Value Reference Range Interpretation Comments AST (test code = AST) 4 See_Comment N [Auto mated message] The system which ge nerated this result transmit saran reference range : <=37. The reference range was not used to interpr et this result as justina l/abnormal. [facility] HospitalPwedbmyWZMVZNBTV0175-79-95 04:20:00 Test Item Value Reference Range Interpretation Comments ALT (test code = ALT) 14 See_Comment N [Auto mated message] The system which ge nerated this result transmit saran reference range : <=65. The reference range was not used to interpr et this result as justina l/abnormal. [facility] HospitalXtbflwpXQUUEYQYE0535-36-05 04:20:00 Test Item Value Reference Range Interpretation Comments A/G Ratio (test code = A/G Ratio) 1.0 0.7-1.6 N [facility] HospitalUpteksuFOMGUXZFC3042-48-88 04:20:00 Test Item Value Reference Range Interpretation Comments Glucose Lvl (test code = Glucose Lvl) 499 A [facility] HospitalUuvoggjOSSTWFHDA1308-24-34 04:20:00 Test Item Value Reference Range Interpretation Comments Creatinine Lvl (test code = Creatinine 0.8 0.5-1.4 N Lvl) [place] 335662-01-07 04:20:00 Test Item Value Reference Range Interpretation Comments BUN (test code = BUN) 12 7-22 N [facility] HospitalWujwmacIJAUWMQEE2054-27-16 04:20:00 Test Item Value Reference Range Interpretation Comments Potassium Lvl (test code = Potassium 4.2 3.5-5.1 N Lvl) [facility] HospitalBglxxmgTPFDGEJPY2942-55-99 04:20:00 Test Item Value Reference Range Interpretation Comments Sodium Lvl (test code = Sodium Lvl) 132 135-145 L [facility] HospitalMghnhkaRKEHNNJXH5236-82-66 04:20:00 Test Item Value Reference Range Interpretation Comments Lipase Lvl (test code = Lipase Lvl) 168 73-393 N [facility] HospitalOxpuxvqWONRZXNRV3380-70-02 04:20:00 Test Item Value Reference Range Interpretation Comments Amylase Lvl (test code = Amylase Lvl) 70 25-115 N [facility] CenterFodhjnlVFQRCYJMOH2277-19-01 04:20:00 Test Item Value Reference Range Interpretation Comments MPV (test code = MPV) 7.9 7.4-10.4 N [facility] CenterCmznkkpWKJMCJRVLF7345-39-14 04:20:00 Test Item Value Reference Range Interpretation Comments Platelet (test code = Platelet) 266 133-450 N [facility] CenterOwllfsvKZXCSASNPD7712-09-95 04:20:00 Test Item Value Reference Range Interpretation Comments RBC (test code = RBC) 4.54 4.20-5.40 N [facility] CenterPtnmgugKJHOLNJSJP2157-16-01 04:20:00 Test Item Value Reference Range Interpretation Comments Hgb (test code = Hgb) 13.3 12.0-16.0 N [facility] CenterSaywzfuAESTMDJUTL1093-70-58 04:20:00 Test Item Value Reference Range Interpretation Comments MCH (test code = MCH) 29.3 pg 27.0-31.0 N [facility] CenterDrrtwyaMZCAYLTEOQ4564-90-00 04:20:00 Test Item Value Reference Range Interpretation Comments MCHC (test code = MCHC) 33.9 32.0-36.0 N [facility] CenterAaborqtDDBZMPCXZG0371-08-88 04:20:00 Test Item Value Reference Range Interpretation Comments RDW (test code = RDW) 14.0 11.5-14.5 N [facility] CenterPcavogzFTQVHLFHWL3154-45-72 04:20:00 Test Item Value Reference Range Interpretation Comments Hct (test code = Hct) 39.3 36.0-48.0 N [facility] CenterGaqnnduHKGBSGOZAJ3285-76-81 04:20:00 Test Item Value Reference Range Interpretation Comments MCV (test code = MCV) 86.5 81.0-99.0 N [facility] CenterNnslsxgGYFCOENVIU8085-85-33 04:20:00 Test Item Value Reference Range Interpretation Comments WBC (test code = WBC) 8.6 3.7-10.4 N [facility] CenterLxiwivdGRYYZABKBU3781-66-97 04:20:00 Test Item Value Reference Range Interpretation Comments Basophils # (test code 0.1 See_Comment N [Aut omated message] The = Basophils #) system which generated this result tra nsmitted reference range : <=0.2. The reference r kehinde was not used to int erpret this result as normal/abnormal . [facility] CenterVhhhtslOACUMANYAX1079-66-82 04:20:00 Test Item Value Reference Range Interpretation Comments Eosinophils # (test code 0.1 See_Comment N [A utomated message] The = Eosinophils #) system whic h generated this result tra nsmitted reference range : <=0.5. The reference r kehinde was not used to int erpret this result as normal/abnormal . [facility] CenterYthatgfJVJVQRAEVP3612-23-55 04:20:00 Test Item Value Reference Range Interpretation Comments Eosinophils (test code = 0.9 See_Comment N [A utomated message] The Eosinophils) system which ge nerated this result tra nsmitted reference range : <=4.0. The reference r kehinde was not used to int erpret this result as normal/abnormal . [facility] CenterIkbqjbmCQTXSMQBNZ0667-53-01 04:20:00 Test Item Value Reference Range Interpretation Comments Lymphocytes (test code = Lymphocytes) 19.9 20.0-40.0 L [facility] CenterPobdcvdCHRBSTOXXG6083-21-30 04:20:00 Test Item Value Reference Range Interpretation Comments Monocytes (test code = Monocytes) 5.4 2.0-12.0 N [facility] CenterZezdkvsLFSVHXGDEA5974-79-54 04:20:00 Test Item Value Reference Range Interpretation Comments Segs (test code = Segs) 73.1 45.0-75.0 N [facility] CenterTnzorixWNQCUNJVMU1728-54-61 04:20:00 Test Item Value Reference Range Interpretation Comments Lymphocytes # (test code = Lymphocytes 1.7 1.0-5.5 N #) [facility] CenterLdkhtarOAXVBWMXJW4081-54-83 04:20:00 Test Item Value Reference Range Interpretation Comments Monocytes # (test code 0.5 See_Comment N [Aut omated message] The = Monocytes #) system which generated this result tra nsmitted reference range : <=0.8. The reference r kehinde was not used to int erpret this result as normal/abnormal . [facility] CenterKuticrhJHTYZEHPHF2977-41-09 04:20:00 Test Item Value Reference Range Interpretation Comments Basophils (test code = 0.7 See_Comment N [Aut omated message] The Basophils) system which ge nerated this result tra nsmitted reference range : <=1.0. The reference r kehinde was not used to int erpret this result as normal/abnormal . [facility] CenterYgcwqbsWJIDALLVYV4548-08-38 04:20:00 Test Item Value Reference Range Interpretation Comments Segs-Bands # (test code = Segs-Bands #) 6.3 1.5-8.1 N [facility]CnhwobpBYOCSIBCIL7783-95-27 02:29:00 Test Item Value Reference Range Interpretation Comments UA Blood (test code = Negative (04/19/2011 N UA Blood) 20:29:00) [facility] HospitalOywejqwEVRRNNMNDA2841-30-88 02:29:00 Test Item Value Reference Range Interpretation Comments UA Protein (test code Negative (04/19/2011 N = UA Protein) 20:29:00) [facility] HospitalUmbxxfqAOXSCAYOYW7800-35-85 02:29:00 Test Item Value Reference Range Interpretation Comments UA pH (test code = UA pH) 6.0 1 5.0-8.0 N [facility] HospitalLbpcnwkEUZXWBLZAE7519-79-22 02:29:00 Test Item Value Reference Range Interpretation Comments UA Glucose (test code = >=1000 mg/dL A UA Glucose) *ABN*(04/19/2011 20:29:00) [facility] HospitalBxhzjndCRGNMOCGLE6705-01-71 02:29:00 Test Item Value Reference Range Interpretation Comments Micro? (test code = Performed (04/19/2011 N Micro?) 20:29:00) [facility] HospitalHieycitBYNCKGXTFB8813-57-09 02:29:00 Test Item Value Reference Range Interpretation Comments UA Nitrite (test code Negative (04/19/2011 N = UA Nitrite) 20:29:00) [facility] HospitalYzgybbcYKJWTPKRSH1203-22-79 02:29:00 Test Item Value Reference Range Interpretation Comments UA Urobilinogen (test code = UA 0.2 0.1-1.0 N Urobilinogen) [facility] HospitalNjpfjuhERKYQLHYOD8162-03-75 02:29:00 Test Item Value Reference Range Interpretation Comments UA Leuk Est (test Negative (04/19/2011 N code = UA Leuk Est) 20:29:00) [facility] HospitalZjqorejMYBYZAAMHI7133-99-84 02:29:00 Test Item Value Reference Range Interpretation Comments UA Bacteria (test code Occasional /HPF N = UA Bacteria) (04/19/2011 20:29:00) [facility] HospitalWktupfzNYWSLKOVUU6472-80-50 02:29:00 Test Item Value Reference Range Interpretation Comments UA Sq Epi (test code Occasional /LPF N = UA Sq Epi) (04/19/2011 20:29:00) [facility] HospitalOtnokmrZCZCCSHPFD9082-48-89 02:29:00 Test Item Value Reference Range Interpretation Comments UA WBC (test code = UA 3-5 /HPF (04/19/2011 N WBC) 20:29:00) [facility] HospitalPndgvohWTPRYZOASU0094-51-49 02:29:00 Test Item Value Reference Range Interpretation Comments UA RBC (test 0-2 /HPF See_Comment N [Automated mes anabell] code = UA RBC) (04/19/2011 The system ich 20:29:00) generated this result transmitted ref erence range: <=2. The reference range was not used to int erpret this result as normal/abnormal . [facility] HospitalGiusqwgKUCQJUYWYE6868-07-82 02:29:00 Test Item Value Reference Range Interpretation Comments UA Spec Grav (test *NA*(04/19/2011 code = UA Spec Grav) 20:29:00) [facility] HospitalAaqhqdaLKESBSTEBK8085-53-15 02:29:00 Test Item Value Reference Range Interpretation Comments UA Turbidity (test code = Clear (04/19/2011 N UA Turbidity) 20:29:00) [facility] HospitalWhqebmfUKBJDNBTNJ9889-77-50 02:29:00 Test Item Value Reference Range Interpretation Comments UA Color (test code = Yellow *NA*(04/19/2011 UA Color) 20:29:00) [facility] HospitalQagvktkDMRJDOZEYM7063-96-19 02:29:00 Test Item Value Reference Range Interpretation Comments UA Ketones (test code Negative = UA Ketones) *NA*(04/19/2011 20:29:00) [facility] HospitalWjcpvpdWBUORVZZLI4287-40-42 02:29:00 Test Item Value Reference Range Interpretation Comments UA Bili (test code = Negative *NA*(04/19/2011 UA Bili) 20:29:00) [facility] GLUCOSE WMUILLT0912-80-80 05:47:00 Test Item Value Reference Range Interpretation Comments Comment1 (test code = Comment1) Notify RN/MD [facility] GLUCOSE UQXSGEB7600-76-46 05:47:00 Test Item Value Reference Range Interpretation Comments Gluc POC Lifscn (test code = Gluc POC 203 65-110 H Lifscn) [facility] HospitalImssdaqNDEFBRGBR0452-32-84 02:45:00 Test Item Value Reference Range Interpretation Comments AST (test code = AST) no gt See_Comment N [Auto mated message] The system which ge nerated this result transmit saran reference range : <=37. The reference range was not used to interpr et this result as justina l/abnormal. [facility] HospitalKdwhfwhYWQYUBBUS4741-49-80 02:45:00 Test Item Value Reference Range Interpretation Comments Calcium Lvl (test code = Calcium Lvl) 9.2 8.5-10.5 N [facility] HospitalOrsyhhfZVXYVIAJL4882-67-14 02:45:00 Test Item Value Reference Range Interpretation Comments AGAP (test code = AGAP) 14.0 10.0-20.0 N [facility] HospitalKmfqeqqSYAFIIIFW6808-60-94 02:45:00 Test Item Value Reference Range Interpretation Comments CO2 (test code = CO2) 25 24-32 N [facility] HospitalJhfrzahENFCXJVPN6263-64-81 02:45:00 Test Item Value Reference Range Interpretation Comments Chloride Lvl (test code = Chloride Lvl) 97 95-109 N [facility] HospitalMhmiunpBPJVULRZU1114-13-77 02:45:00 Test Item Value Reference Range Interpretation Comments Potassium Lvl (test code = Potassium 4.0 3.5-5.1 N Lvl) [facility] HospitalIkjyxhjKWMMXKANI0730-32-54 02:45:00 Test Item Value Reference Range Interpretation Comments Creatinine Lvl (test code = Creatinine 0.7 0.5-1.4 N Lvl) [facility] HospitalKzdrzhsSAKQPVWEW1492-83-28 02:45:00 Test Item Value Reference Range Interpretation Comments Sodium Lvl (test code = Sodium Lvl) 132 135-145 L [facility] HospitalSvvtlatSKRSKDWHT3159-81-12 02:45:00 Test Item Value Reference Range Interpretation Comments Bili Total (test code = Bili Total) 0.5 0.2-1.3 N [facility] HospitalUnoijfnRBFKWFWRM3884-02-11 02:45:00 Test Item Value Reference Range Interpretation Comments Alk Phos (test code = Alk Phos) 69 39-136 N [facility] HospitalStdmsduFDASWZAZN0819-21-12 02:45:00 Test Item Value Reference Range Interpretation Comments ALT (test code = ALT) 14 See_Comment N [Auto mated message] The system which ge nerated this result transmit saran reference range : <=65. The reference range was not used to interpr et this result as justina l/abnormal. [facility] HospitalMwyzussDAYXITEBJ0537-57-22 02:45:00 Test Item Value Reference Range Interpretation Comments Albumin Lvl (test code = Albumin Lvl) 3.9 3.5-5.0 N [facility] HospitalLmyvlraTRVZXWUAZ5374-27-21 02:45:00 Test Item Value Reference Range Interpretation Comments Total Protein (test code = Total 7.8 6.4-8.4 N Protein) [facility] HospitalBuqdqyvGEZICCBZE7469-02-14 02:45:00 Test Item Value Reference Range Interpretation Comments B/C Ratio (test code = B/C Ratio) 19 6-25 N [facility] HospitalKejtqzeCAYOAHJJJ3128-58-37 02:45:00 Test Item Value Reference Range Interpretation Comments A/G Ratio (test code = A/G Ratio) 1.0 0.7-1.6 N [facility] HospitalZghvlnoLNFNVRDSK0493-39-66 02:45:00 Test Item Value Reference Range Interpretation Comments Globulin (test code = Globulin) 3.9 2.0-4.0 N [facility] HospitalXsjlpbiXRSQSAODJ4184-41-17 02:45:00 Test Item Value Reference Range Interpretation Comments BUN (test code = BUN) 13 7-22 N [facility] HospitalNxqwmzuISHQRNXRB5431-90-74 02:45:00 Test Item Value Reference Range Interpretation Comments Glucose Lvl (test code = Glucose Lvl) 410 A [facility] HospitalXypbgmpNYELLXXNW7307-80-10 02:45:00 Test Item Value Reference Range Interpretation Comments Lipase Lvl (test code = Lipase Lvl) 171 73-393 N [facility] CenterQptilanJZQMNKOYAJ8133-53-11 02:45:00 Test Item Value Reference Range Interpretation Comments Hgb (test code = Hgb) 12.7 12.0-16.0 N [facility] CenterSoajmcnQYTTDCZMQZ6363-44-96 02:45:00 Test Item Value Reference Range Interpretation Comments RDW (test code = RDW) 14.0 11.5-14.5 N [facility] CenterDdjbcsrIGOEIYWJPQ6212-49-19 02:45:00 Test Item Value Reference Range Interpretation Comments Hct (test code = Hct) 36.9 36.0-48.0 N [facility] CenterYfwaahrUVOXHQBYPN4974-64-38 02:45:00 Test Item Value Reference Range Interpretation Comments MCV (test code = MCV) 85.5 81.0-99.0 N [facility] CenterHxmbliqUQAFHMQKPO6983-78-63 02:45:00 Test Item Value Reference Range Interpretation Comments MCH (test code = MCH) 29.5 pg 27.0-31.0 N [facility] CenterHvbdwjsYKAIDTPXHK8249-32-22 02:45:00 Test Item Value Reference Range Interpretation Comments MCHC (test code = MCHC) 34.5 32.0-36.0 N [facility] CenterRbtpdxsIQMHBGSWCL1884-22-16 02:45:00 Test Item Value Reference Range Interpretation Comments Platelet (test code = Platelet) 278 133-450 N [facility] CenterWirhuieWFFYSEDJDV9465-99-97 02:45:00 Test Item Value Reference Range Interpretation Comments MPV (test code = MPV) 8.2 7.4-10.4 N [facility] CenterCjdepzgRLTXDICBWM8639-46-61 02:45:00 Test Item Value Reference Range Interpretation Comments WBC (test code = WBC) 6.9 3.7-10.4 N [facility] CenterBpbtcesULJOAOBMCR0212-27-21 02:45:00 Test Item Value Reference Range Interpretation Comments RBC (test code = RBC) 4.32 4.20-5.40 N [facility] CenterUhmdrfiREBCBLFXSD9781-39-70 02:45:00 Test Item Value Reference Range Interpretation Comments Basophils (test code = 0.5 See_Comment N [Aut omated message] The Basophils) system which ge nerated this result tra nsmitted reference range : <=1.0. The reference r kehinde was not used to int erpret this result as normal/abnormal . [facility] CenterJapchkcWOWJRWXAZT5547-09-88 02:45:00 Test Item Value Reference Range Interpretation Comments Segs-Bands # (test code = Segs-Bands #) 4.6 1.5-8.1 N [facility] CenterSymlhaiSRBZLFOQUB0182-70-39 02:45:00 Test Item Value Reference Range Interpretation Comments Lymphocytes # (test code = Lymphocytes 1.9 1.0-5.5 N #) [facility] CenterBfyyiscBWNVJESJBR5338-49-25 02:45:00 Test Item Value Reference Range Interpretation Comments Monocytes # (test code 0.3 See_Comment N [Aut omated message] The = Monocytes #) system which generated this result tra nsmitted reference range : <=0.8. The reference r kehinde was not used to int erpret this result as normal/abnormal . [facility] CenterQwqikvfYREIFGAKWW0365-04-31 02:45:00 Test Item Value Reference Range Interpretation Comments Eosinophils # (test code 0.1 See_Comment N [A utomated message] The = Eosinophils #) system whic h generated this result tra nsmitted reference range : <=0.5. The reference r kehinde was not used to int erpret this result as normal/abnormal . [facility] CenterOwxxxamOLJYJJBJQV1869-20-94 02:45:00 Test Item Value Reference Range Interpretation Comments Basophils # (test code 0.0 See_Comment N [Aut omated message] The = Basophils #) system which generated this result tra nsmitted reference range : <=0.2. The reference r kehinde was not used to int erpret this result as normal/abnormal . [facility] CenterZqtfugqHEAOSYHMJI9018-43-05 02:45:00 Test Item Value Reference Range Interpretation Comments Lymphocytes (test code = Lymphocytes) 27.2 20.0-40.0 N [facility] CenterLtcxlkoPJCKSSEZMJ4111-51-26 02:45:00 Test Item Value Reference Range Interpretation Comments Segs (test code = Segs) 66.3 45.0-75.0 N [facility] CenterJaviehqGHRDDQPSHP7054-02-62 02:45:00 Test Item Value Reference Range Interpretation Comments Monocytes (test code = Monocytes) 4.8 2.0-12.0 N [facility] HospitalPsvgcfcMEOCYBTCKU9085-05-05 02:45:00 Test Item Value Reference Range Interpretation Comments Eosinophils (test code = 1.2 See_Comment N [A utomated message] The Eosinophils) system which ge nerated this result tra nsmitted reference range : <=4.0. The reference r kehinde was not used to int erpret this result as normal/abnormal . [facility] HospitalFvtkyniQULJRWTZKT2226-92-90 02:00:00 Test Item Value Reference Range Interpretation Comments UA Bacteria (test code Occasional /HPF N = UA Bacteria) (03/25/2011 20:00:00) [facility] HospitalRhasuztAUNKCJOJAL5800-71-66 02:00:00 Test Item Value Reference Range Interpretation Comments UA Solon Yeast (test Occasional /HPF A code = UA Solon Yeast) *ABN*(03/25/2011 20:00:00) [facility] HospitalGzugcbrDZSADSKGZK4019-99-56 02:00:00 Test Item Value Reference Range Interpretation Comments UA Sq Epi (test code = Rare /LPF (03/25/2011 N UA Sq Epi) 20:00:00) [facility] HospitalSecxzkxSOWXSEUJMX5580-32-66 02:00:00 Test Item Value Reference Range Interpretation Comments UA WBC (test code = UA 0-2 /HPF (03/25/2011 N WBC) 20:00:00) [facility] HospitalFqzkpcdASOTFUGZRR3793-68-28 02:00:00 Test Item Value Reference Range Interpretation Comments UA RBC (test 0-2 /HPF See_Comment N [Automated mes anabell] code = UA RBC) (03/25/2011 The system wh ich 20:00:00) generated this result transmitted ref erence range: <=2. The reference range was not used to int erpret this result as normal/abnormal . [facility] HospitalUouqnmtPVMUHZCCMM2995-42-09 02:00:00 Test Item Value Reference Range Interpretation Comments UA Leuk Est (test Negative (03/25/2011 N code = UA Leuk Est) 20:00:00) [facility] HospitalBzjfovmRSRXZTSKGM6679-36-97 02:00:00 Test Item Value Reference Range Interpretation Comments Micro? (test code = Performed (03/25/2011 N Micro?) 20:00:00) [facility] HospitalYsbadhpVGJLJGJTOH4629-52-75 02:00:00 Test Item Value Reference Range Interpretation Comments UA Nitrite (test code Negative (03/25/2011 N = UA Nitrite) 20:00:00) [facility] HospitalZmebawfNLSMBMAWGR7042-47-04 02:00:00 Test Item Value Reference Range Interpretation Comments UA Blood (test code = Negative (03/25/2011 N UA Blood) 20:00:00) [facility] HospitalLyniyyaSOMQOQAQAD2902-93-35 02:00:00 Test Item Value Reference Range Interpretation Comments UA Urobilinogen (test code = UA 0.2 0.1-1.0 N Urobilinogen) [facility] HospitalXlxylflHMVLIEQZPH5014-34-56 02:00:00 Test Item Value Reference Range Interpretation Comments UA Color (test code = Yellow *NA*(03/25/2011 UA Color) 20:00:00) [facility] HospitalIvqrxkoEHAOJOLXMH4791-90-77 02:00:00 Test Item Value Reference Range Interpretation Comments UA Turbidity (test code = Clear (03/25/2011 N UA Turbidity) 20:00:00) [facility] HospitalRdscoafQKWYPBGHYI1983-64-62 02:00:00 Test Item Value Reference Range Interpretation Comments UA Spec Grav (test *NA*(03/25/2011 code = UA Spec Grav) 20:00:00) [facility] HospitalSfjijffYBZJOHHMBZ8854-57-47 02:00:00 Test Item Value Reference Range Interpretation Comments UA Bili (test code = Negative *NA*(03/25/2011 UA Bili) 20:00:00) [facility] HospitalHxajkpnDQUXHIBRTQ9225-15-39 02:00:00 Test Item Value Reference Range Interpretation Comments UA Glucose (test code = >=1000 mg/dL A UA Glucose) *ABN*(03/25/2011 20:00:00) [facility] HospitalChrrjwlRPTWZYKOMB8132-34-51 02:00:00 Test Item Value Reference Range Interpretation Comments UA Ketones (test code Negative = UA Ketones) *NA*(03/25/2011 20:00:00) [facility] HospitalYgaejhvMEBYUSYOBK1746-49-57 02:00:00 Test Item Value Reference Range Interpretation Comments UA pH (test code = UA pH) 6.0 1 5.0-8.0 N [facility] [facility]DQ6461-31-15 02:00:00 Test Item Value Reference Range Interpretation Comments UA Protein (test code Negative (03/25/2011 N = UA Protein) 20:00:00) [facility] GLUCOSE [id number] 16:26:00 Test Item Value Reference Range Interpretation Comments Gluc POC Lifscn (test code = Gluc POC 227.0 65-110 H Lifscn) [facility]MwaznnyPUVTQYPJO7947-96-34 15:30:00 Test Item Value Reference Range Interpretation Comments CK MB Index (test no gt See_Comment N [Automate d message] The code = CK MB Index) system w [facility] generated this result transmit saran reference range : <=2.5. The reference range was not used to interpr et this result as justina l/abnormal. [facility] HospitalBkkuvklLIISBAJXZ2742-03-81 15:30:00 Test Item Value Reference Range Interpretation Comments CK MB (test code = CK MB) no gt 0.5-3.6 N [facility] HospitalYwjxpbjSOIKIHDXQ7288-00-81 15:30:00 Test Item Value Reference Range Interpretation Comments Total CK (test code = Total CK) 77.0 12-191 N [facility] HospitalLopsqhaWZKSWUFFH3417-98-35 15:30:00 Test Item Value Reference Range Interpretation Comments Total CK (test code = Total CK) 77.0 12-191 N [facility] HospitalUwutxqnYSXGJJFCP2957-24-99 15:30:00 Test Item Value Reference Range Interpretation Comments Troponin-I (test code no gt See_Comment N [Auto mated message] The = Troponin-I) system which g enerated this result transmit saran reference range : <=0.40. The reference r kehinde was not used to interpr et this result as justina l/abnormal. [facility] GLUCOSE [id number] 12:00:00 Test Item Value Reference Range Interpretation Comments Gluc POC Lifscn (test code = Gluc POC 394.0 65-110 H Lifscn) [facility] HospitalXlxncntPDAXRZDHA7277-01-11 09:29:00 Test Item Value Reference Range Interpretation Comments Magnesium Lvl (test code = Magnesium 1.5 1.8-2.4 L Lvl) [facility] HospitalGhavctnJAIFVYDIY6177-37-72 09:29:00 Test Item Value Reference Range Interpretation Comments Glucose Lvl (test code = Glucose Lvl) 222.0 [facility] HospitalJtpqdqqCBLWBHYLC0574-57-29 09:29:00 Test Item Value Reference Range Interpretation Comments BUN (test code = BUN) 11.0 7-22 N [facility] HospitalBchmwayJZLYMPDMJ7681-97-05 09:29:00 Test Item Value Reference Range Interpretation Comments Calcium Lvl (test code = Calcium Lvl) 7.8 8.5-10.5 L [facility] HospitalMxgoflnHDHZYHORG0250-43-11 09:29:00 Test Item Value Reference Range Interpretation Comments AGAP (test code = AGAP) 13.7 10.0-20.0 N [facility] HospitalEjvhbhqANAOWNWMD3531-78-02 09:29:00 Test Item Value Reference Range Interpretation Comments Creatinine Lvl (test code = Creatinine 0.6 0.5-1.4 N Lvl) [facility] HospitalJbdovbhNFAKRCMZE0961-73-70 09:29:00 Test Item Value Reference Range Interpretation Comments Sodium Lvl (test code = Sodium Lvl) 137.0 135-145 N [facility] HospitalCilihfaDBISNLWWF0826-90-32 09:29:00 Test Item Value Reference Range Interpretation Comments Potassium Lvl (test code = Potassium 3.7 3.5-5.1 N Lvl) [facility] HospitalLbpfopvEWSOGSIWF5183-22-01 09:29:00 Test Item Value Reference Range Interpretation Comments Chloride Lvl (test code = Chloride Lvl) 103.0 95-109 N [facility] HospitalRfuwolwEKSGOXWYI7181-67-58 09:29:00 Test Item Value Reference Range Interpretation Comments CO2 (test code = CO2) 24.0 24-32 N [facility] HospitalGcjjkwvWJNZFEUNL3667-46-92 09:29:00 Test Item Value Reference Range Interpretation Comments Troponin-I (test code no gt See_Comment N [Auto mated message] The = Troponin-I) system which g enerated this result transmit saran reference range : <=0.40. The reference r kehinde was not used to interpr et this result as justina l/abnormal. [facility] HospitalDijznugQHUPOZVIE2100-35-56 09:29:00 Test Item Value Reference Range Interpretation Comments Total CK (test code = Total CK) 71.0 12-191 N [facility] HospitalMpgckqdBAGZVLJGQ4118-62-34 09:29:00 Test Item Value Reference Range Interpretation Comments Total CK (test code = Total CK) 71.0 12-191 N [facility] CenterNpizygyPZQBCFSWZK6056-33-97 09:29:00 Test Item Value Reference Range Interpretation Comments MPV (test code = MPV) 7.8 7.4-10.4 N [facility] CenterNzavlbiJWEFAZJLKJ2369-97-32 09:29:00 Test Item Value Reference Range Interpretation Comments RDW (test code = RDW) 14.1 11.5-14.5 N [facility] CenterLgesireATOVOADAZA0197-30-25 09:29:00 Test Item Value Reference Range Interpretation Comments WBC (test code = WBC) 6.8 3.7-10.4 N [facility] CenterTtwgsnpTSDVBQYFTS3216-89-82 09:29:00 Test Item Value Reference Range Interpretation Comments Hgb (test code = Hgb) 11.8 12.0-16.0 L [facility] CenterJpsxkmqRNVKBOHTYH5726-70-50 09:29:00 Test Item Value Reference Range Interpretation Comments RBC (test code = RBC) 4.11 4.20-5.40 L [facility] CenterWjkdpptNEJVWHSGUF2265-17-11 09:29:00 Test Item Value Reference Range Interpretation Comments Hct (test code = Hct) 35.3 36.0-48.0 L [facility] CenterHzqktceFVKJKROPDX3393-69-52 09:29:00 Test Item Value Reference Range Interpretation Comments MCH (test code = MCH) 28.7 pg 27.0-31.0 N [facility] CenterRjterxaXENQTSLMRK9995-70-30 09:29:00 Test Item Value Reference Range Interpretation Comments MCV (test code = MCV) 85.7 81.0-99.0 N [facility] CenterGcdbkubGBJZZSPHDL2504-27-43 09:29:00 Test Item Value Reference Range Interpretation Comments Platelet (test code = Platelet) 193.0 133-450 N [facility] CenterEghvivaDMVPBFJWCA2850-62-86 09:29:00 Test Item Value Reference Range Interpretation Comments MCHC (test code = MCHC) 33.5 32.0-36.0 N [facility] CenterDglcwcdMUCCAZDJJW7060-23-52 09:29:00 Test Item Value Reference Range Interpretation Comments Lymphocytes (test code = Lymphocytes) 26.3 20.0-40.0 N [facility] CenterQtzdbeqBTHUNGJIFG5058-97-78 09:29:00 Test Item Value Reference Range Interpretation Comments Segs (test code = Segs) 65.8 45.0-75.0 N [place] 949541-10-31 09:29:00 Test Item Value Reference Range Interpretation Comments Monocytes (test code = Monocytes) 6.1 2.0-12.0 N [facility] CenterGixlyvnZNFRBQRKPP7760-82-22 09:29:00 Test Item Value Reference Range Interpretation Comments Eosinophils (test code = 1.2 See_Comment N [A utomated message] The Eosinophils) system which ge nerated this result tra nsmitted reference range : <=4.0. The reference r kehinde was not used to int erpret this result as normal/abnormal . [facility] CenterFmtkfroYPZMECBPEL7560-01-38 09:29:00 Test Item Value Reference Range Interpretation Comments Basophils (test code = 0.6 See_Comment N [Aut omated message] The Basophils) system which ge nerated this result tra nsmitted reference range : <=1.0. The reference r kehinde was not used to int erpret this result as normal/abnormal . [facility] CenterNioiudgJBOLZDKXWG1898-44-63 09:29:00 Test Item Value Reference Range Interpretation Comments Segs-Bands # (test code = Segs-Bands #) 4.5 1.5-8.1 N [facility] CenterMywsytiIGCOGSYOAO1406-65-35 09:29:00 Test Item Value Reference Range Interpretation Comments Lymphocytes # (test code = Lymphocytes 1.8 1.0-5.5 N #) [facility] CenterCuaiastMWUVNQWVKY1355-36-94 09:29:00 Test Item Value Reference Range Interpretation Comments Monocytes # (test code 0.4 See_Comment N [Aut omated message] The = Monocytes #) system which generated this result tra nsmitted reference range : <=0.8. The reference r kehinde was not used to int erpret this result as normal/abnormal . [facility] CenterOxvtjquGLEWDBJRHP3586-61-63 09:29:00 Test Item Value Reference Range Interpretation Comments Basophils # (test code 0.0 See_Comment N [Aut omated message] The = Basophils #) system which generated this result tra nsmitted reference range : <=0.2. The reference r kehinde was not used to int erpret this result as normal/abnormal . [facility] CenterDlznomcVHDMYOQQTA2172-90-78 09:29:00 Test Item Value Reference Range Interpretation Comments Eosinophils # (test code 0.1 See_Comment N [A utomated message] The = Eosinophils #) system whic h generated this result tra nsmitted reference range : <=0.5. The reference r kehinde was not used to int erpret this result as normal/abnormal . [facility] GLUCOSE PSWUJHH2941-40-90 05:34:00 Test Item Value Reference Range Interpretation Comments Gluc POC Lifscn (test code = Gluc POC 151.0 65-110 H Lifscn) [facility] HospitalRiposvwEUUPXOLPOW6954-37-33 03:26:00 Test Item Value Reference Range Interpretation Comments UA Glucose (test code = >=1000 mg/dL A UA Glucose) *ABN*(02/10/2011 22:26:00) ?? [facility] HospitalGknrpkgRMXGQFLWLY8043-38-83 03:26:00 Test Item Value Reference Range Interpretation Comments UA Ketones (test code Negative mg/dL = UA Ketones) *NA*(02/10/2011 22:26:00) ?? [facility]BlgjylsPZMNKHCQMB3878-95-80 03:26:00 Test Item Value Reference Range Interpretation Comments UA pH (test code = UA pH) 6.5 1 5.0-8.0 N [facility] HospitalKmfxfetRFDDKVBTSN7468-89-18 03:26:00 Test Item Value Reference Range Interpretation Comments UA Protein (test code Negative mg/dL N = UA Protein) (02/10/2011 22:26:00) ?? [facility] HospitalOxwzgobXXKHIVUKIB3206-09-19 03:26:00 Test Item Value Reference Range Interpretation Comments UA Nitrite (test code Negative (02/10/2011 N = UA Nitrite) 22:26:00) ?? [facility] HospitalZredabmUPZRMMBRKZ9760-04-60 03:26:00 Test Item Value Reference Range Interpretation Comments UA Leuk Est (test Negative (02/10/2011 N code = UA Leuk Est) 22:26:00) ?? [facility] HospitalTlfzzgpGUDWQWXHAN3507-70-52 03:26:00 Test Item Value Reference Range Interpretation Comments UA Urobilinogen (test code = UA 0.2 0.1-1.0 N Urobilinogen) [facility] HospitalUkvpretQGUEIWBBJJ1523-26-38 03:26:00 Test Item Value Reference Range Interpretation Comments UA Blood (test code = Negative (02/10/2011 N UA Blood) 22:26:00) ?? [facility] HospitalTjhouiyQNNYHIEGZN6518-27-64 03:26:00 Test Item Value Reference Range Interpretation Comments UA Bili (test code = Negative *NA*(02/10/2011 UA Bili) 22:26:00) ?? [facility] HospitalYskgzdtIGVAGTHSDR7553-42-18 03:26:00 Test Item Value Reference Range Interpretation Comments UA Turbidity (test code = Clear (02/10/2011 N UA Turbidity) 22:26:00) ?? [facility] HospitalKxbjezhAIPOODZRQW2958-99-84 03:26:00 Test Item Value Reference Range Interpretation Comments UA Spec Grav (test code = UA Spec 1.01 1 N Grav) KfubsoxCPBMFKKXOH5166-54-29 03:26:00 Test Item Value Reference Range Interpretation Comments UA Color (test code = Yellow *NA*(02/10/2011 UA Color) 22:26:00) [facility]MktpvewBGJYSGOWJK7841-50-97 03:26:00 Test Item Value Reference Range Interpretation Comments UA RBC (test 0-2 /HPF See_Comment N [Automated mes anabell] code = UA RBC) (02/10/2011 The system ich 22:26:00) ?? generated this result transmitted ref erence range: <=2. The reference range was not used to int erpret this result as normal/abnormal . [facility] HospitalOwbaqllLHFBUIEBET4101-01-42 03:26:00 Test Item Value Reference Range Interpretation Comments UA WBC (test code = UA 6-10 /HPF A WBC) *ABN*(02/10/2011 22:26:00) ?? [facility] HospitalQpnbdyoFVFCGNYGXW5285-41-94 03:26:00 Test Item Value Reference Range Interpretation Comments UA Sq Epi (test code = Few /LPF (02/10/2011 N UA Sq Epi) 22:26:00) ?? [facility] HospitalSddvysiLOZOBWEOLJ0958-26-98 03:26:00 Test Item Value Reference Range Interpretation Comments UA Bacteria (test code = Few /HPF (02/10/2011 N UA Bacteria) 22:26:00) ?? [facility] HospitalVlfprxuJVLTZZKBNI6927-84-88 03:26:00 Test Item Value Reference Range Interpretation Comments UA Solon Yeast (test Occasional /HPF A code = UA Solon Yeast) *ABN*(02/10/2011 22:26:00) ?? [facility] HospitalNhvsjgcUYSZIQDKEG2836-95-69 03:26:00 Test Item Value Reference Range Interpretation Comments Micro? (test code = Performed (02/10/2011 N Micro?) 22:26:00) ?? [facility] HospitalJbmpabaBGMEGPDZV8889-52-09 03:03:00 Test Item Value Reference Range Interpretation Comments S Preg (test code = S Negative *NA*(02/10/2011 Preg) 22:03:00) ?? [facility] HospitalXzthragMXFBBSEIA1539-08-74 03:03:00 Test Item Value Reference Range Interpretation Comments CK MB (test code = CK MB) no gt 0.5-3.6 N [facility] HospitalBbmmbieOCUHESTKI5902-27-08 03:03:00 Test Item Value Reference Range Interpretation Comments Troponin-I (test code no gt See_Comment N [Auto mated message] The = Troponin-I) system which g enerated this result transmit saran reference range : <=0.40. The reference r kehinde was not used to interpr et this result as justina l/abnormal. [facility] HospitalUowwtvdGISMRMSJO5102-86-52 03:03:00 Test Item Value Reference Range Interpretation Comments AST (test code = AST) 7.0 See_Comment N [Auto mated message] The system which ge nerated this result transmit saran reference range : <=37. The reference range was not used to interpr et this result as justina l/abnormal. [facility] HospitalIyhgthxPSWRGCJES5247-12-34 03:03:00 Test Item Value Reference Range Interpretation Comments Albumin Lvl (test code = Albumin Lvl) 4.0 3.5-5.0 N [facility] HospitalXhboukmRGPNYXQAO1382-92-17 03:03:00 Test Item Value Reference Range Interpretation Comments Total Protein (test code = Total 7.5 6.4-8.4 N Protein) [facility] HospitalRqewelmKNVLQTCNC5428-32-56 03:03:00 Test Item Value Reference Range Interpretation Comments A/G Ratio (test code = A/G Ratio) 1.1 1 0.7-1.6 N [facility] HospitalUhjeuvuUZZBVLENF1356-31-63 03:03:00 Test Item Value Reference Range Interpretation Comments Globulin (test code = Globulin) 3.5 2.0-4.0 N [facility] HospitalZpcputnTIXWVTFBI4509-44-01 03:03:00 Test Item Value Reference Range Interpretation Comments ALT (test code = ALT) 14.0 See_Comment N [Auto mated message] The system which ge nerated this result transmit saran reference range : <=65. The reference range was not used to interpr et this result as justina l/abnormal. [facility] HospitalFjemyquGESNSZXMC4668-54-10 03:03:00 Test Item Value Reference Range Interpretation Comments Bili Total (test code = Bili Total) 0.3 0.2-1.3 N [facility] HospitalLnlhrjpBASBGGQRV6663-65-51 03:03:00 Test Item Value Reference Range Interpretation Comments Alk Phos (test code = Alk Phos) 69.0 39-136 N [facility] HospitalYolviejHKVNOJGFN9912-58-89 03:03:00 Test Item Value Reference Range Interpretation Comments CO2 (test code = CO2) 22.0 24-32 L [facility] HospitalAbkshuzXVWAACJYG3441-93-08 03:03:00 Test Item Value Reference Range Interpretation Comments B/C Ratio (test code = B/C Ratio) 20.0 1 6-25 N [facility] HospitalHtuuycdIWUTZLNUY1124-23-59 03:03:00 Test Item Value Reference Range Interpretation Comments Chloride Lvl (test code = Chloride Lvl) 96.0 95-109 N [facility] HospitalVcwybjdZLZMXVAQK6355-24-37 03:03:00 Test Item Value Reference Range Interpretation Comments Calcium Lvl (test code = Calcium Lvl) 8.7 8.5-10.5 N [facility] HospitalFyooccyEARQHNHZG1730-93-66 03:03:00 Test Item Value Reference Range Interpretation Comments AGAP (test code = AGAP) 17.3 10.0-20.0 N [facility] HospitalYguqoadZGVWOBMYP8336-58-31 03:03:00 Test Item Value Reference Range Interpretation Comments Glucose Lvl (test code = Glucose Lvl) 417.0 A [facility] HospitalUeriixbJAXPVCKGB9167-50-88 03:03:00 Test Item Value Reference Range Interpretation Comments Sodium Lvl (test code = Sodium Lvl) 131.0 135-145 L [facility] HospitalYehilhdRYUOAKXLC5943-11-22 03:03:00 Test Item Value Reference Range Interpretation Comments Creatinine Lvl (test code = Creatinine 0.6 0.5-1.4 N Lvl) [facility] HospitalOpocdfuKAUDKTMGI6899-75-83 03:03:00 Test Item Value Reference Range Interpretation Comments BUN (test code = BUN) 12.0 7-22 N [facility] HospitalXorezojBBFJMGFGQ7113-45-74 03:03:00 Test Item Value Reference Range Interpretation Comments Potassium Lvl (test code = Potassium 4.3 3.5-5.1 N Lvl) [facility] HospitalBuqdvbbEUJFGLSTW3354-31-73 03:03:00 Test Item Value Reference Range Interpretation Comments Ketones Qual (test Negative (02/10/2011 N code = Ketones Qual) 22:03:00) ?? [facility] CenterOfrtzlsDPEDSQQXNO4607-25-29 03:03:00 Test Item Value Reference Range Interpretation Comments Segs-Bands # (test code = Segs-Bands #) 3.9 1.5-8.1 N [facility] CenterRnivwojVOVABFTTCR4646-04-39 03:03:00 Test Item Value Reference Range Interpretation Comments Lymphocytes # (test code = Lymphocytes 2.0 1.0-5.5 N #) [facility] CenterXcolshkLMVYJSBJVT8851-33-61 03:03:00 Test Item Value Reference Range Interpretation Comments Basophils (test code = 0.5 See_Comment N [Aut omated message] The Basophils) system which ge nerated this result tra nsmitted reference range : <=1.0. The reference r kehinde was not used to int erpret this result as normal/abnormal . [facility] CenterQxwmqqdBVSFWXOMOM7660-67-73 03:03:00 Test Item Value Reference Range Interpretation Comments Monocytes # (test code 0.4 See_Comment N [Aut omated message] The = Monocytes #) system which generated this result tra nsmitted reference range : <=0.8. The reference r kehinde was not used to int erpret this result as normal/abnormal . [facility] CenterUflhfiqSLEWBBXFBT1540-72-45 03:03:00 Test Item Value Reference Range Interpretation Comments Eosinophils # (test code 0.1 See_Comment N [A utomated message] The = Eosinophils #) system whic h generated this result tra nsmitted reference range : <=0.5. The reference r kehinde was not used to int erpret this result as normal/abnormal . [facility] CenterFhsbapmTRXPKBNPLF9967-46-44 03:03:00 Test Item Value Reference Range Interpretation Comments Segs (test code = Segs) 60.9 45.0-75.0 N [facility] CenterCjoecslGRHLWBNZVF0735-65-44 03:03:00 Test Item Value Reference Range Interpretation Comments Lymphocytes (test code = Lymphocytes) 31.7 20.0-40.0 N [facility] CenterCymddgmACAXWVIDAW8398-09-47 03:03:00 Test Item Value Reference Range Interpretation Comments Eosinophils (test code = 1.2 See_Comment N [A utomated message] The Eosinophils) system which ge nerated this result tra nsmitted reference range : <=4.0. The reference r kehinde was not used to int erpret this result as normal/abnormal . [facility] CenterSihurmpCZFTBCSSLH7892-47-35 03:03:00 Test Item Value Reference Range Interpretation Comments Monocytes (test code = Monocytes) 5.7 2.0-12.0 N [facility] CenterPganfdfYZXEGSWQMW9575-75-81 03:03:00 Test Item Value Reference Range Interpretation Comments Basophils # (test code 0.0 See_Comment N [Aut omated message] The = Basophils #) system which generated this result tra nsmitted reference range : <=0.2. The reference r kehinde was not used to int erpret this result as normal/abnormal . [facility] CenterXcziveoKBKMDKUJVC0676-31-37 03:03:00 Test Item Value Reference Range Interpretation Comments PT (test code = PT) 13.9 s 12.0-14.7 N [facility] CenterOnaghjoELDAYQCXAR1189-94-62 03:03:00 Test Item Value Reference Range Interpretation Comments PTT (test code = PTT) 28.4 s 22.9-35.8 N [facility] CenterNwdywmyDPMATYBSZB6042-47-72 03:03:00 Test Item Value Reference Range Interpretation Comments INR (test code = INR) 1.07 1 0.85-1.17 N [facility] CenterCqhpypuVFKFLIJMWI0263-57-75 03:03:00 Test Item Value Reference Range Interpretation Comments MCHC (test code = MCHC) 33.7 32.0-36.0 N [facility] CenterJnxvffqHRWUHZAWRQ8777-13-09 03:03:00 Test Item Value Reference Range Interpretation Comments RDW (test code = RDW) 14.3 11.5-14.5 N [facility] CenterEumlrhsKWWUJTPRPW6352-35-36 03:03:00 Test Item Value Reference Range Interpretation Comments Platelet (test code = Platelet) 224.0 133-450 N [facility] CenterOsboyfyFIBQBNEOBA6635-62-54 03:03:00 Test Item Value Reference Range Interpretation Comments MPV (test code = MPV) 7.9 7.4-10.4 N [facility] CenterQuiohtjIOANBYAICA3193-60-68 03:03:00 Test Item Value Reference Range Interpretation Comments MCV (test code = MCV) 85.9 81.0-99.0 N [facility] CenterGelozahCOJFOZVYEA6162-16-22 03:03:00 Test Item Value Reference Range Interpretation Comments RBC (test code = RBC) 4.43 4.20-5.40 N [facility] CenterEpbuyhxNNCUCIMLXV8385-64-31 03:03:00 Test Item Value Reference Range Interpretation Comments Hct (test code = Hct) 38.1 36.0-48.0 N [facility] CenterZzjywtmXTLFCUVJRT3340-44-49 03:03:00 Test Item Value Reference Range Interpretation Comments Hgb (test code = Hgb) 12.8 12.0-16.0 N [facility] CenterWtmqgkwYOWCAIYPUZ9205-21-13 03:03:00 Test Item Value Reference Range Interpretation Comments MCH (test code = MCH) 28.9 pg 27.0-31.0 N [facility] CenterEzyebuaPIEQPKOXMN1288-14-64 03:03:00 Test Item Value Reference Range Interpretation Comments WBC (test code = WBC) 6.5 3.7-10.4 N [facility] CenterPacsaaiGLTERYUHZD0283-55-15 03:03:00 Test Item Value Reference Range Interpretation Comments D-Dimer (test code = D-Dimer) 1.1 [facility] GLUCOSE ZCNPNGI2754-66-21 16:39:00 Test Item Value Reference Range Interpretation Comments Gluc POC Lifscn (test code = Gluc POC 175.0 65-110 H Lifscn) [facility] GLUCOSE OWGPAUH5535-08-90 16:39:00 Test Item Value Reference Range Interpretation Comments Comment1 (test code = Comment1) Notify RN/ [facility] GLUCOSE [id number] 12:16:00 Test Item Value Reference Range Interpretation Comments Comment1 (test code = Comment1) Notify RN/ [facility] GLUCOSE UPTPUQB6805-17-29 12:16:00 Test Item Value Reference Range Interpretation Comments Gluc POC Lifscn (test code = Gluc POC 88.0 65-110 N Lifscn) [facility] GLUCOSE TJUQQKZ9890-35-93 11:27:00 Test Item Value Reference Range Interpretation Comments Comment1 (test code = Comment1) Notify RN/MD [facility] GLUCOSE [id number] 11:27:00 Test Item Value Reference Range Interpretation Comments Gluc POC Liflan (test code = Gluc POC 70.0 65-110 N Lifscn) [facility] HospitalZcqquxnOBSWVDBYU7042-35-04 10:45:00 Test Item Value Reference Range Interpretation Comments CK MB Index (test no gt See_Comment N [Automate d message] The code = CK MB Index) system w [facility] generated this result transmit saran reference range : <=2.5. The reference range was not used to interpr et this result as justina l/abnormal. [facility] HospitalRfnulvcABLVSOHOX1255-88-22 10:45:00 Test Item Value Reference Range Interpretation Comments CK MB (test code = CK MB) no gt 0.5-3.6 N [facility] HospitalVkoaaejTZCWRJGUR5178-12-95 10:45:00 Test Item Value Reference Range Interpretation Comments Troponin-I (test code no gt See_Comment N [Auto mated message] The = Troponin-I) system which g enerated this result transmit saran reference range : <=0.40. The reference r kehinde was not used to interpr et this result as justina l/abnormal. [facility] HospitalGokiqxiXROEIVJDW0670-65-49 10:45:00 Test Item Value Reference Range Interpretation Comments Total CK (test code = Total CK) 88.0 12-191 N [facility] Hospital[facility]clijobSCUESRUHU3248-88-91 10:45:00 Test Item Value Reference Range Interpretation Comments Creatinine Lvl (test code = Creatinine 0.6 0.5-1.4 N Lvl) [facility]pl[facility]fbTGCUVRLXT9952-40-56 10:45:00 Test Item Value Reference Range Interpretation Comments Potassium Lvl (test code = Potassium 3.4 3.5-5.1 L Lvl) [facility] HospitalRvzefqbNXUXYEYAH4680-43-12 10:45:00 Test Item Value Reference Range Interpretation Comments Sodium Lvl (test code = Sodium Lvl) 141.0 135-145 N [facility] HospitalMmgmfxkLGRGRYEXI7183-28-96 10:45:00 Test Item Value Reference Range Interpretation Comments BUN (test code = BUN) 13.0 7-22 N [facility] HospitalMngrzrxUHHZEGXBD3175-52-80 10:45:00 Test Item Value Reference Range Interpretation Comments CO2 (test code = CO2) 25.0 24-32 N [facility] HospitalMarsruhWSUXZQDJB6754-83-56 10:45:00 Test Item Value Reference Range Interpretation Comments Calcium Lvl (test code = Calcium Lvl) 8.0 8.5-10.5 L [facility] HospitalOeplbbbDBUAWWYPZ5165-73-10 10:45:00 Test Item Value Reference Range Interpretation Comments AGAP (test code = AGAP) 18.4 10.0-20.0 N [facility] HospitalTkwvjqjKLRKERUJA9542-21-92 10:45:00 Test Item Value Reference Range Interpretation Comments Chloride Lvl (test code = Chloride Lvl) 101.0 95-109 N [facility] HospitalBjpmwgqLEEUJLETQ7771-17-09 10:45:00 Test Item Value Reference Range Interpretation Comments Glucose Lvl (test code = Glucose Lvl) 122.0 [facility] HospitalEzljnknKWLSKARCO1632-01-65 10:45:00 Test Item Value Reference Range Interpretation Comments LDL (test code = LDL) 96.0 See_Comment N [Auto mated message] The system which nerated this result transmit saran reference range : <=129. The reference range was not used to interpr et this result as justina l/abnormal. [facility] HospitalGuouithSRGRNAYCJ9678-40-48 10:45:00 Test Item Value Reference Range Interpretation Comments CHD Risk (test code = CHD Risk) 3.8 1 3.90-5.80 L [facility] HospitalYjfjovgUZDHARGUD7785-83-65 10:45:00 Test Item Value Reference Range Interpretation Comments HDL (test code = HDL) 45.0 N [facility] HospitalTafxsjcDODSJFTPZ4285-37-84 10:45:00 Test Item Value Reference Range Interpretation Comments Trig (test code = 150.0 See_Comment N [Automate d message] The Trig) system which [employer] nerated this result transmit saran reference range : <=200. The reference range was not used to interpr et this result as justina l/abnormal. [facility] HospitalQjcoazwLPJMMLVFV1983-70-37 10:45:00 Test Item Value Reference Range Interpretation Comments Chol (test code = Chol) 171.0 120-200 N [facility] HospitalXgcphgsIQJCVMBWR9097-70-09 01:43:00 Test Item Value Reference Range Interpretation Comments CK MB (test code = CK MB) no gt 0.5-3.6 N [facility] HospitalLqedakjAIFTNTPHB6389-48-73 01:43:00 Test Item Value Reference Range Interpretation Comments CK MB Index (test no gt See_Comment N [Automate d message] The code = CK MB Index) system w [employer] generated this result transmit saran reference range : <=2.5. The reference range was not used to interpr et this result as justina l/abnormal. [facility] HospitalPavkywcYXVKKLOWW4877-89-26 01:43:00 Test Item Value Reference Range Interpretation Comments Total CK (test code = Total CK) 83.0 12-191 N [facility] HospitalUdwpxubGSPLQVSWN6917-09-99 01:43:00 Test Item Value Reference Range Interpretation Comments Troponin-I (test code no gt See_Comment N [Auto mated message] The = Troponin-I) system which g enerated this result transmit saran reference range : <=0.40. The reference r kehinde was not used to interpr et this result as justina l/abnormal. [facility] HospitalQbfhzbqBPEWUWZAL9014-48-26 21:36:00 Test Item Value Reference Range Interpretation Comments U Preg (test code = U Negative (01/14/2011 N Preg) 16:36:00) ?? [facility] HospitalGwqxuczOPEJQCHUQ5092-25-01 20:36:00 Test Item Value Reference Range Interpretation Comments CK MB Index (test no gt See_Comment N [Automate d message] The code = CK MB Index) system w [employer] generated this result transmit saran reference range : <=2.5. The reference range was not used to interpr et this result as justina l/abnormal. [facility] HospitalTyquiezQEHONHZJC0418-84-19 20:36:00 Test Item Value Reference Range Interpretation Comments BNP (test code = BNP) 13.0 N [facility] HospitalOrydsdzBMPOMYBQB7500-73-02 20:36:00 Test Item Value Reference Range Interpretation Comments AST (test code = AST) <3.0 See_Comment N [Auto mated message] The system which ge nerated this result transmit saran reference range : <=37. The reference range was not used to interpr et this result as justina l/abnormal. [facility] HospitalObgczygMAOJLYLBG1364-70-02 20:36:00 Test Item Value Reference Range Interpretation Comments Bili Total (test code = Bili Total) 0.5 0.2-1.3 N [facility] HospitalKlmgixuFCKIBEMXJ5959-05-88 20:36:00 Test Item Value Reference Range Interpretation Comments Albumin Lvl (test code = Albumin Lvl) 3.8 3.5-5.0 N [facility] HospitalDxmtzqxYNHWLSRHC9307-81-30 20:36:00 Test Item Value Reference Range Interpretation Comments ALT (test code = ALT) 17.0 See_Comment N [Auto mated message] The system which ge nerated this result transmit saran reference range : <=65. The reference range was not used to interpr et this result as justina l/abnormal. [facility] HospitalMjmwgkwBDAZLQWEX5893-33-23 20:36:00 Test Item Value Reference Range Interpretation Comments Alk Phos (test code = Alk Phos) 71.0 39-136 N [facility] HospitalHhcvhvrSFVKHOUES7711-32-97 20:36:00 Test Item Value Reference Range Interpretation Comments Potassium Lvl (test code = Potassium 3.8 3.5-5.1 N Lvl) [facility] HospitalTmzpmolWHOYUNPMQ0716-51-22 20:36:00 Test Item Value Reference Range Interpretation Comments Chloride Lvl (test code = Chloride Lvl) 100.0 95-109 N [facility] HospitalOkvlfspRLTZTQQKX7108-26-80 20:36:00 Test Item Value Reference Range Interpretation Comments CO2 (test code = CO2) 22.0 24-32 L [facility] HospitalLcglrptTPTLVAYAF3699-39-61 20:36:00 Test Item Value Reference Range Interpretation Comments AGAP (test code = AGAP) 14.8 10.0-20.0 N [facility] HospitalOjffcftBCBBGTSXI6533-08-49 20:36:00 Test Item Value Reference Range Interpretation Comments Calcium Lvl (test code = Calcium Lvl) 8.6 8.5-10.5 N [facility] HospitalJtcyempHSSTLDDHA4203-23-67 20:36:00 Test Item Value Reference Range Interpretation Comments Sodium Lvl (test code = Sodium Lvl) 133.0 135-145 L [facility] HospitalUwtgvwaRYEKFOCOO2309-30-46 20:36:00 Test Item Value Reference Range Interpretation Comments Globulin (test code = Globulin) 3.6 2.0-4.0 N [facility] HospitalFvtfdrdOJLLZOMQH4655-17-04 20:36:00 Test Item Value Reference Range Interpretation Comments A/G Ratio (test code = A/G Ratio) 1.1 1 0.7-1.6 N [facility] HospitalEeyaxpdXOASPKNLT0452-58-14 20:36:00 Test Item Value Reference Range Interpretation Comments B/C Ratio (test code = B/C Ratio) 11.0 1 6-25 N [facility] HospitalYmtmtplRMPLJZMJA0091-76-88 20:36:00 Test Item Value Reference Range Interpretation Comments Total Protein (test code = Total 7.4 6.4-8.4 N Protein) [facility] HospitalAeejdbnMMCBWWSHA7844-29-67 20:36:00 Test Item Value Reference Range Interpretation Comments Glucose Lvl (test code = Glucose Lvl) 478.0 A [facility] HospitalWxhsajyBDVZKUNWC1686-77-14 20:36:00 Test Item Value Reference Range Interpretation Comments BUN (test code = BUN) 9.0 7-22 N [facility] HospitalBmghjtjDZMLTMLFI5866-87-21 20:36:00 Test Item Value Reference Range Interpretation Comments Creatinine Lvl (test code = Creatinine 0.8 0.5-1.4 N Lvl) [facility] HospitalGfzzigbUHOJZJSDH2889-05-50 20:36:00 Test Item Value Reference Range Interpretation Comments Troponin-I (test code no gt See_Comment N [Auto mated message] The = Troponin-I) system which g enerated this result transmit saran reference range : <=0.40. The reference r kehinde was not used to interpr et this result as justina l/abnormal. [facility] HospitalOgzcpgfDIRVHNUXO0950-08-37 20:36:00 Test Item Value Reference Range Interpretation Comments CK MB (test code = CK MB) no gt 0.5-3.6 N [facility] HospitalFtzvijkITLHOUDJI7008-17-64 20:36:00 Test Item Value Reference Range Interpretation Comments Total CK (test code = Total CK) 78.0 12-191 N [facility]OjsrqfsFIBLAJXBEE9719-95-08 20:36:00 Test Item Value Reference Range Interpretation Comments Monocytes # (test code 0.3 See_Comment N [Aut omated message] The = Monocytes #) system which generated this result tra nsmitted reference range : <=0.8. The reference r kehinde was not used to int erpret this result as normal/abnormal . [facility] CenterKbwqtreAUGDFAUDWI5885-46-21 20:36:00 Test Item Value Reference Range Interpretation Comments Lymphocytes # (test code = Lymphocytes 1.7 1.0-5.5 N #) [facility] CenterKkcoodnJXSDJKZIBT2970-48-60 20:36:00 Test Item Value Reference Range Interpretation Comments Segs-Bands # (test code = Segs-Bands #) 3.5 1.5-8.1 N [facility] CenterLpodcpwSBSJMRPSMY4834-46-89 20:36:00 Test Item Value Reference Range Interpretation Comments Basophils (test code = 0.9 See_Comment N [Aut omated message] The Basophils) system which ge nerated this result tra nsmitted reference range : <=1.0. The reference r kehinde was not used to int erpret this result as normal/abnormal . [facility] CenterRaummadSUCBNHOROG0832-82-68 20:36:00 Test Item Value Reference Range Interpretation Comments Eosinophils (test code = 0.9 See_Comment N [A utomated message] The Eosinophils) system which ge nerated this result tra nsmitted reference range : <=4.0. The reference r kehinde was not used to int erpret this result as normal/abnormal . [facility] CenterMsiojkqILABMPWIFL4038-20-71 20:36:00 Test Item Value Reference Range Interpretation Comments Basophils # (test code 0.0 See_Comment N [Aut omated message] The = Basophils #) system which generated this result tra nsmitted reference range : <=0.2. The reference r kehinde was not used to int erpret this result as normal/abnormal . [facility] CenterCcmcuvzVQWYRPKTNE9640-65-30 20:36:00 Test Item Value Reference Range Interpretation Comments Eosinophils # (test code 0.1 See_Comment N [A utomated message] The = Eosinophils #) system whic h generated this result tra nsmitted reference range : <=0.5. The reference r kehinde was not used to int erpret this result as normal/abnormal . [facility] CenterTldkwnzDRMTLYLUHW3363-87-21 20:36:00 Test Item Value Reference Range Interpretation Comments Lymphocytes (test code = Lymphocytes) 30.7 20.0-40.0 N [facility] CenterWjfidhjMLARTUUQZV4564-92-17 20:36:00 Test Item Value Reference Range Interpretation Comments Segs (test code = Segs) 63.0 45.0-75.0 N [facility] CenterAyvlrteBXUNKHXOWW8691-83-16 20:36:00 Test Item Value Reference Range Interpretation Comments Monocytes (test code = Monocytes) 4.5 2.0-12.0 N [facility] CenterBtosdwlGNMOGPKBER2548-13-84 20:36:00 Test Item Value Reference Range Interpretation Comments RDW (test code = RDW) 14.6 11.5-14.5 H [facility] CenterImvsaqoACEIFLAWUE4217-38-74 20:36:00 Test Item Value Reference Range Interpretation Comments MCHC (test code = MCHC) 34.0 32.0-36.0 N [facility] CenterToifewrGUHNSYYYJG6111-10-96 20:36:00 Test Item Value Reference Range Interpretation Comments MPV (test code = MPV) 8.0 7.4-10.4 N [facility] CenterIbyinyqHMNBGHOIQF5665-80-06 20:36:00 Test Item Value Reference Range Interpretation Comments Platelet (test code = Platelet) 231.0 133-450 N [facility] CenterNefrzuqFXVKUIJGLE7992-45-84 20:36:00 Test Item Value Reference Range Interpretation Comments MCH (test code = MCH) 28.8 pg 27.0-31.0 N [facility] CenterNnpvcndWYENGXQMCV5024-93-46 20:36:00 Test Item Value Reference Range Interpretation Comments Hgb (test code = Hgb) 13.2 12.0-16.0 N [facility] CenterHzzyyrkPGGWTOMLKJ0150-51-77 20:36:00 Test Item Value Reference Range Interpretation Comments RBC (test code = RBC) 4.6 4.20-5.40 N [facility] CenterKoretpyXAAUMBAIBR1503-32-75 20:36:00 Test Item Value Reference Range Interpretation Comments Hct (test code = Hct) 38.9 36.0-48.0 N [facility] CenterSstamozFZIJNQUAED7016-26-21 20:36:00 Test Item Value Reference Range Interpretation Comments MCV (test code = MCV) 84.6 81.0-99.0 N [facility] CenterBkcgxueRBAINHBQTQ5012-55-88 20:36:00 Test Item Value Reference Range Interpretation Comments WBC (test code = WBC) 5.6 3.7-10.4 N [facility] CenterHigtibxHPWOSWQNMB4295-99-30 20:36:00 Test Item Value Reference Range Interpretation Comments PT (test code = PT) 13.6 s 12.0-14.7 N [facility] CenterBaaijrmQMPBEPFVZD8587-84-74 20:36:00 Test Item Value Reference Range Interpretation Comments PTT (test code = PTT) 30.2 s 22.9-35.8 N [facility] CenterVbqlcbpGAHYYEIFSH1105-88-30 20:36:00 Test Item Value Reference Range Interpretation Comments INR (test code = INR) 1.04 1 0.85-1.17 N [facility] CenterKuyhsuuWWZVVDUVJL4956-82-84 20:36:00 Test Item Value Reference Range Interpretation Comments D-Dimer (test code = D-Dimer) 1.5 [facility]
[2021-07-03] MEDS ORDERED: LEVALBUTEROL 1.25 MG/3 ML NEB ONE (13:00)
[2021-07-03 13:02] LABS: Absolute Lymphocytes (CBC) 1.7 K/uL (0.7-4.9); Hematocrit 31.2 % (36.0-45.0); Lymphocytes % 27.6 % (15.3-44.8); MPV 7.7 fL (7.6-11.3); RBC Red Blood Cell Count 3.71 M/uL (3.86-4.86)
[2021-07-03 13:24] LABS: Troponin High Sensitivity 19.1 pg/mL (<58.9)
[2021-07-03 13:25] LABS: Potassium 4.5 mmol/L (3.5-5.1)
[2021-07-03 13:47] LABS: SARS-COV-2 RT PCR NEGATIVE (NEGATIVE)
--- NOTE | 2021-07-03 13:48 | RAD REPORT ---
EXAM DESCRIPTION: RAD - Chest Single View - 07/03/2021 1:02 pm CLINICAL HISTORY: shortness of breath COMPARISON: Portable 09/06/2020 TECHNIQUE: AP portable chest image was obtained 07/03/2021 1:02 pm . FINDINGS: Lung volumes are low compared to the prior study. Bilateral pleural effusions are present right greater than left. There is lung base atelectasis and lung base infiltrates could be masked. Heart borders are mostly obscured by the pleural effusion and atelectasis in each lung base. Heart si ze is not grossly enlarged but does appear to be increased over the comparison study. Vasculature is slightly more pronounced. No pneumothorax seen. No acute bony abnormality seen. No acute aortic findings suspected. IMPRESSION: Small to moderate right-sided and small left-sided pleural effusions with lung base atel ectasis. Lung base infiltrates could be masked by the pleural fluid and parenchymal changes. Heart size and vasculature are more prominent than the prior study. Failure or volume overload suspec saran.
--- NOTE | 2021-07-03 15:37 | RAD REPORT ---
EXAM DESCRIPTION: CT - Chest For Pe Angio - 07/03/2021 2:50 pm CLINICAL HISTORY: sob COMPARISON: 2020 TECHNIQUE: Dynamically enhanced axial 3 mm thick images of the chest were obtained during administra tion of <100> mL Isovue 370 IV contrast. Coronal and oblique reconstruction images were generated and reviewed. Exam utilizes a protocol for optimal evaluation of pulmonary arterial tree. Maximum intensity projections 3D imaging was utilized All CT scans are performed using dose optimization technique as appropriate and may include automated exposure control or mA/KV adjustment according to patient size. FINDINGS: A pulmonary embolus is not seen. A thoracic aortic aneurysm is not noted. Moderate to large bilateral pleural effusions A pericardial effusion is not seen. Passive atelectasis lower lobes IMPRESSION: Negative for a pulmonary embolism. Moderate to large bilateral pleural effusions
[2021-07-03] MEDS ORDERED: FUROSEMIDE 20 MG/ 2ML VIAL ONE (15:55)
--- NOTE | 2021-07-03 16:59 | ER ---
Nurse's Notes [facility] Name: Melissa De Oliveira Age: 55 yrs Sex: Female : 1965 Arrival Date: 07/03/2021 Time: 12:04 Bed 27 Private MD: Diagnosis: Acute on chronic combined systolic (congestive) and diastolic (congestive) heart failure Presentation: 07/03 12:07 Chief complaint: Patient states: chest pain and shortness of breath x2 days. [place] Coronavirus screen: Vaccine status: Patient reports being unvaccinated. Ebola Screen: Patient denies travel to an Ebola-affected area in the 21 days before illness onset. Initial Sepsis Screen: Does the patient meet any 2 criteria? HR > 90 bpm. Does the patient have a suspected source of infection? No. Patient's initial sepsis screen is negative. Risk Assessment: Do you want to hurt yourself or someone else? Patient reports no desire to harm self or others. Onset of symptoms was July 02, 2021. 12:07 Method Of Arrival: Ambulatory boykin 12:07 Acuity: DEYA 3 boykin Triage Assessment: 12:10 General: Appears in no apparent distress. Behavior is calm, cooperative. Pain: boykin Complains of pain in chest. Cardiovascular: Reports chest pain, shortness of breath. Historical: - Allergies: 12:10 Codeine; boykin 12:10 Tramadol HCl; boykin 12:10 Ritalin; boykin - PMHx: 12:10 Diabetes - IDDM; Hypertensive disorder; neuropathy; boykin - PSHx: 12:10 Appendectomy; section; Cholecystectomy; boykin - Immunization history:: Adult Immunizations up to date. - Social history:: Smoking status: Patient denies any tobacco usage or history of. Screenin:10 Abuse screen: Denies threats or abuse. Nutritional screening: No deficits noted. ss7 Tuberculosis screening: No symptoms or risk factors identified. Fall Risk IV access (20 points). Assessment: 13:13 Pain: Denies pain. Pain began. ss7 13:16 General: Appears in no apparent distress. Behavior is calm, cooperative, appropriate ss7 for age. Pain: Denies pain. Pain does not radiate. Neuro: No deficits noted. Cardiovascular: Heart tones S1 S2. Respiratory: Breath sounds are diminished bilaterally. GI: No deficits noted. : No deficits noted. EENT: No deficits noted. Derm: No deficits noted. Musculoskeletal: No deficits noted. Vital Signs: 12:07 BP 154 / 81; Pulse 90; Resp 18; Temp 98.0; Pulse Ox 96% ; Weight 47.17 kg; Height 5 ft. boykin 3 in. (160.02 cm); 13:16 BP 162 / 96; Pulse 96; Resp 22; Pulse Ox 100% on Nebulizer Mask; ss7 15:30 BP 120 / 86; Pulse 70; Resp 18; Pulse Ox 96% ; ss7 17:06 BP 163 / 81; Pulse 93; Resp 18; Pulse Ox 98% on R/A; ss7 12:07 Body Mass Index 18.42 (47.17 kg, 160.02 cm) [place] ED Course: 12:04 Patient arrived in ED. kz 12:10 Triage completed. [place]kin 12:12 Irwin Vick PA is PHCP. [facility] 12:12 Chandana Nelson MD is Attending Physician. [facility] 12:14 Angeline Tinsley, KIRIT is Primary Nurse. 7 12:43 Patient has correct armband on for positive identification. Bed in low position. Call mh5 light in reach. Side rails up X 1. Warm blanket given. quality assurance monitor final on. Pulse ox on. NIBP on. 13:02 XRAY Chest (1 view) In Process Unspecified. EDMS 13:08 COVID-19/FLU A+B (Document "Date of Onset" if Symptomatic) Sent. ss7 13:08 NT PRO-BNP Sent. ss7 13:08 Basic Metabolic Panel Sent. ss7 13:08 Blood Culture Adult (2) Sent. ss7 13:08 Procalcitonin Sent. ss7 13:08 Lactate Sent. ss7 13:08 Basic Metabolic Panel Sent. ss7 13:08 NT PRO-BNP Sent. ss7 13:10 Troponin HS Sent. ss7 13:10 No provider procedures requiring assistance completed. Inserted saline lock: 22 gauge ss7 in right wrist, using aseptic technique. Missed attempt(s): 22 gauge in left antecubital area. Oxygen administered via a nebulizer mask. 13:17 Arm band placed on. EKG completed in triage. Results shown to MD. ss7 14:50 CT Chest For PE Angio In Process Unspecified. EDMS 16:58 Rogerio Smith MD is Referral Physician. jmm 17:08 IV discontinued, intact. ss7 Administered Medications: 13:08 Drug: Xopenex (levalbuterol) (3) 1.25 mg Route: Inhalation; 7 17:10 Follow up: Response: No adverse reaction 7 16:02 Drug: Lasix (furosemide) 20 mg Route: IVP; Site: right antecubital; 7 17:10 Follow up: Response: Other; +diuresis 7 Outcome: 16:58 Discharge ordered by MD. cheng 17:08 Discharged to home ambulatory. 7 17:08 Condition: good 17:08 Discharge instructions given to patient, Instructed on discharge instructions, follow up and referral plans. Demonstrated understanding of instructions, follow-up care, medications, Prescriptions given X 2. 17:09 Patient left the ED. 7 Signatures: Dispatcher [employer] EDMS Irwin Vick PA PA jmm Martinez, Maria mh5 Mercedes Montero RN RN ha Smith, Shana, RN RN 7 Ami Escamilla
--- NOTE | 2021-07-03 17:00 | EDPHYS ---
Physician Documentation [facility] Name: Melissa De Oliveira Age: 55 yrs Sex: Female : 1965 Arrival Date: 07/03/2021 Time: 12:04 Bed 27 Private MD: ED Physician Chandana Nelson HPI: 07/03 12:26 This 55 yrs old Female presents to ER via Ambulatory with complaints of Chest Tightness.[facility] 12:26 The patient has shortness of breath at rest. Onset: The symptoms/episode began/occurred jmm gradually, 2 day(s) ago. Duration: The symptoms are continuous. The patient's shortness of breath is aggravated by nothing, is alleviated by nothing. This is a 55-year-old female with history of diabetes mellitus, hypertension the presents emerged department with complaints of progressively worsening shortness of breath over the past 2 days. Patient also complains of chest tightness. Patient states that she was taken off her diuretics approximately 2 weeks ago by her telemetry registered nurse. Denies fever but states that she had similar feeling when she was diagnosed with pneumonia previously.. Historical: - Allergies: 12:10 Codeine; boykin 12:10 Tramadol HCl; boykin 12:10 Ritalin; boykin - PMHx: 12:10 Diabetes - IDDM; Hypertensive disorder; neuropathy; boykin - PSHx: 12:10 Appendectomy; section; Cholecystectomy; boykin - Immunization history:: Adult Immunizations up to date. - Social history:: Smoking status: Patient denies any tobacco usage or history of. ROS: 12:26 Abdomen/GI: Negative for abdominal pain, nausea, vomiting, diarrhea, and constipation. jmm 12:26 Constitutional: Positive for body aches, chills. 12:26 Respiratory: Positive for cough, shortness of breath. 12:26 All other systems are negative. Exam: 12:26 Constitutional: This is a well developed, well nourished patient who is awake, alert, jmm and in no acute distress. Head/Face: atraumatic. Eyes: EOMI, no conjunctival erythema appreciated ENT: Moist Mucus Membranes Neck: Trachea midline, Supple Chest/axilla: Normal chest wall appearance and motion. Cardiovascular: Regular rate and rhythm. No edema appreciated Respiratory: Normal respirations, no respiratory distress appreciated Abdomen/GI: Non distended, soft Back: Normal ROM Skin: General appearance color normal MS/ Extremity: Moves all extremities, no obvious deformities appreciated, no edema noted to the lower extremities Neuro: Awake and alert Psych: Behavior is normal, Mood is normal, Patient is cooperative and pleasant Vital Signs: 12:07 BP 154 / 81; Pulse 90; Resp 18; Temp 98.0; Pulse Ox 96% ; Weight 47.17 kg; Height 5 ft. boykin 3 in. (160.02 cm); 13:16 BP 162 / 96; Pulse 96; Resp 22; Pulse Ox 100% on Nebulizer Mask; ss7 15:30 BP 120 / 86; Pulse 70; Resp 18; Pulse Ox 96% ; ss7 17:06 BP 163 / 81; Pulse 93; Resp 18; Pulse Ox 98% on R/A; ss7 12:07 Body Mass Index 18.42 (47.17 kg, 160.02 cm) boykin MDM: 12:26 Patient medically screened. [facility] 16:57 Data reviewed: vital signs, nurses notes. [facility] 16:57 Counseling: I had a detailed discussion with the patient and/or guardian regarding: the [facility] historical points, exam findings, and any diagnostic results supporting the discharge/admit diagnosis, lab results, radiology results, the need for outpatient follow up, to return to the emergency department if symptoms worsen or persist or if there are any questions or concerns that arise at home. ED course: Labs and imaging studies concerning for heart failure. Patient is not hypoxic. Patient advised to begin her diuretics again and advised follow with her telemetry registered nurse for further evaluation. Patient otherwise given strict return precautions. Patient understood and agrees plan of care.. 07/03 12:32 Order name: Basic Metabolic Panel [facility] 07/03 12:32 Order name: CBC with Diff; Complete Time: 13:15 [facility] 07/03 12:32 Order name: NT PRO-BNP [facility] 07/03 12:32 Order name: Troponin HS; Complete Time: 13:26 [facility] 07/03 12:32 Order name: Procalcitonin; Complete Time: 13:40 [facility] 07/03 12:32 Order name: Lactate; Complete Time: 13:26 [facility] 07/03 12:32 Order name: XRAY Chest (1 view); Complete Time: 13:49 [facility] 07/03 12:32 Order name: Blood Culture Adult (2) [facility] 07/03 12:33 Order name: Basic Metabolic Panel; Complete Time: 13:26 [facility] 07/03 12:33 Order name: NT PRO-BNP; Complete Time: 13:26 [facility] 07/03 12:37 Order name: COVID-19/FLU A+B (Document "Date of Onset" if Symptomatic); Complete Time: [facility] 13:48 07/03 14:20 Order name: CT Chest For PE Angio; Complete Time: 15:39 [facility] 07/03 12:32 Order name: EKG; Complete Time: 12:33 [facility] 07/03 12:32 Order name: Cardiac monitoring; Complete Time: 12:42 [facility] 07/03 12:32 Order name: EKG - Nurse/Tech; Complete Time: 13:08 [facility] 07/03 12:32 Order name: IV Saline Lock; Complete Time: 13:08 [facility] 07/03 12:32 Order name: Labs collected and sent; Complete Time: 13:08 [facility] 07/03 12:32 Order name: O2 Per Protocol; Complete Time: 13:08 [facility] 07/03 12:32 Order name: O2 Sat Monitoring; Complete Time: 13:09 [facility] Administered Medications: 13:08 Drug: Xopenex (levalbuterol) (3) 1.25 mg Route: Inhalation; ss7 17:10 Follow up: Response: No adverse reaction ss7 16:02 Drug: Lasix (furosemide) 20 mg Route: IVP; Site: right antecubital; ss7 17:10 Follow up: Response: Other; +diuresis ss7 Disposition: 18:36 Co-signature as Attending Physician, Chandana Nelson MD. rn Disposition Summary: 07/03/21 16:58 Discharge Ordered Location: Home [facility] Condition: Stable [facility] Diagnosis - Acute on chronic combined systolic (congestive) and diastolic (congestive) heart [facility] failure Followup: [facility] - With: Rogerio Smith MD - When: 2 - 3 days - Reason: Recheck today's complaints, Continuance of care, Re-evaluation by your physician Discharge Instructions: - Discharge Summary Sheet [facility] - Heart Failure, Self Care [facility] - Heart Failure Action Plan [facility] Forms: - Medication Reconciliation Form [facility] - Thank You Letter [facility] - Antibiotic Education [facility] - Prescription Opioid Use [facility] Prescriptions: - albuterol sulfate 90 mcg/actuation Inhalation HFA aerosol inhaler - inhale 2 puff by INHALATION route every 6 hours; 1 Pump; Refills: 0, Product jm Selection Permitted - Lasix 20 mg Oral Tablet - take 1 tablet by ORAL route once daily; 20 tablet; Refills: 0, Product jm Selection Permitted Signatures: Dispatcher [employer] Irwin Owen PA PA jmm Nieto, Roman, MD MD rn Au-Mercedes Hare RN RN ha Smith, Shana, RN RN ss7
[2021-07-03 17:41] VITALS: TEMP 98
[2021-07-03 17:45] VITALS: BP 163/81; O2SAT 98
--- NOTE | 2021-07-05 07:48 | EKG ---
Test Date: 2021-07-03 Test Time: 12:14:35 Correspondence Analyst: SAMY MEASUREMENT RESULTS: Intervals: Rate: 94 RI: 156 QRSD: 68 QT: 390 QTc: 487 [place]: P: 65 RI: 156 QRS: 52 T: 67 INTERPRETIVE STATEMENTS: Normal sinus rhythm Normal ECG Compared to ECG 09/06/2020 14:55:49 Prolonged QT interval no longer present Electronically Signed On 07-05-21 07:41:55 CDT by Rogerio Smith
== END 2021-07-03 17:09 | disposition home or self-care (01) ==
LOC: ER 12:00
DX: I50.43 Acute on chronic combined systolic (congestive) and diastolic (congestive) heart failure (principal); E11.40 Type 2 diabetes mellitus with diabetic neuropathy, unspecified; I10 Essential (primary) hypertension; Z20.822 Contact with and (suspected) exposure to COVID-19; Z88.5 Allergy status to narcotic agent; Z88.8 Allergy status to other drugs, medicaments and biological substances
CPT/HCPCS: 0240U; 36415; 71045; 71275; 80048; 83605; 83880; 84145; 84484; 85025; 87040; 87205; 93005; 96374; 99285; J1940; Q9967

== ENCOUNTER 2022-08-14 20:31 | Emergency (ER) | payer BC, MEDICARE ==
[2022-08-14 22:09] LABS: Absolute Lymphocytes (CBC) 0.8 K/uL (0.7-4.9); Hematocrit 34.5 % (36.0-45.0); Lymphocytes % 13.8 % (15.3-44.8); MCV 89.1 fL (80-100); MPV 8.1 fL (7.6-11.3); RBC Red Blood Cell Count 3.87 M/uL (3.86-4.86)
[2022-08-14 22:11] LABS: Protime INR 1.28
[2022-08-14 22:31] LABS: Magnesium 2.1 mg/dL (1.6-2.4); Potassium 4.8 mEq/L (3.5-5.1)
--- NOTE | 2022-08-14 22:33 | RAD REPORT ---
EXAM DESCRIPTION: Marco A Single View08/14/2022 10:18 pm CLINICAL HISTORY: Chest pain COMPARISON: July 2022 FINDINGS: Moderate to large right pleural effusion without significant change. Small to moderate left pleural effusion Right basilar atelectasis Remainder lungs appear clear The heart is mildly to moderately enlarged A central venous line in place
[2022-08-14] MEDS ORDERED: HYDRALAZINE HCL 20 MG/ML VIAL ONE (22:41)
[2022-08-15] MEDS ORDERED: ACETAMINOPHEN 325 MG TABLET ONE (00:02)
[2022-08-15] MEDS ORDERED: INSULIN -REGULAR HUMAN 50 UNIT/0.5 ML ML ONE (00:27)
[2022-08-15] MEDS ORDERED: DOXYCYCLINE 100 MG CAP PO ONE (00:45)
--- NOTE | 2022-08-15 01:03 | EDPHYS ---
Physician Documentation [facility] Name: Melissa De Oliveira Age: 56 yrs Sex: Female : 1965 Arrival Date: 08/14/2022 Time: 20:31 Bed 19 Private MD: ED Physician Yogesh Jimenez HPI: 08/14 22:00 This 56 yrs old Female presents to ER via Ambulatory with complaints of Infected cp Dialysis Catheter. 22:00 Patient presents to ED after being referred by her primary manufacturing operator at [facility] with concern for infected dialysis chest catheter. Patient reports catheter was placed several months ago by physician at [facility] and that she has been having increasing pain over the past week to right upper chest. Historical: - Allergies: 20:59 Codeine; mb9 20:59 Ritalin; mb9 20:59 Tramadol HCl; mb9 - PMHx: 20:59 Diabetes - IDDM; Hypertensive disorder; neuropathy; Congestive heart failure; Kidney mb9 disease; lung failure; - PSHx: 20:59 Appendectomy; section; Cholecystectomy; mb9 - Immunization history:: Adult Immunizations up to date. - Social history:: Smoking status: Patient denies any tobacco usage or history of. ROS: 22:05 Constitutional: Negative for body aches, chills, fever, poor PO intake. cp 22:05 Eyes: Negative for injury, pain, redness, and discharge. cp 22:05 Cardiovascular: Positive for chest pain, of the anterior aspect of right upper chest. 22:05 Respiratory: Negative for cough, shortness of breath, wheezing. 22:05 Abdomen/GI: Negative for abdominal pain, vomiting, diarrhea, constipation. 22:05 Skin: Negative for rash. 22:05 Neuro: Negative for altered mental status, headache, weakness. 22:05 All other systems are negative. Exam: 22:05 Head/Face: Normocephalic, atraumatic. cp 22:05 Constitutional: The patient appears in no acute distress, alert, awake, comfortable, non-diaphoretic, non-toxic, well developed, well nourished. 22:05 Eyes: Periorbital structures: appear normal, Conjunctiva: normal, no exudate, no injection, Sclera: no appreciated abnormality, Lids and lashes: appear normal, bilaterally. 22:05 ENT: External ear(s): are unremarkable, Nose: is normal, Mouth: Lips: moist, Oral mucosa: pink and intact, moist, Posterior pharynx: is normal, airway is patent, no erythema, no exudate. 22:05 Chest/axilla: Inspection: right side chest catheter appears with no erythema, swelling and no drainage, Palpation: tenderness, that is mild, of the anterior aspect of right upper chest. 22:05 Cardiovascular: Rate: normal, Rhythm: regular, JVD: is not appreciated. 22:05 Respiratory: the patient does not display signs of respiratory distress, Respirations: normal, no use of accessory muscles, no retractions, labored breathing, is not present, Breath sounds: decreased breath sounds, that are moderate, are heard in the left posterior lower lobe, right posterior middle lobe and right posterior lower lobe, stridor, is not appreciated, wheezing: is not appreciated. 22:05 Abdomen/GI: Inspection: abdomen appears normal, Palpation: abdomen is soft and non-tender, in all quadrants. 22:05 Skin: cellulitis, that is minimal, no rash present. 22:05 Neuro: Orientation: to person, place \T\ time. Mentation: is normal, Motor: moves all fours, strength is normal, Sensation: is normal. 08/15 00:03 ECG was reviewed by the Attending Physician. cp Vital Signs: 08/14 20:56 BP 158 / 85; Pulse 74; Resp 18; Temp 98.4; Pulse Ox 90% on R/A; Weight 45.36 kg; Height mb9 5 ft. 4 in. ; Pain 10/10; 22:00 BP 167 / 102; Pulse 79; Resp 17; Pulse Ox 100% ; jj7 22:30 BP 166 / 98; Pulse 79; Resp 17; Pulse Ox 100% ; jj7 23:30 BP 154 / 85; Pulse 84; Resp 17; Pulse Ox 96% ; j7 08/15 00:33 BP 156 / 86; Pulse 86; Resp 18; Pulse Ox 97% ; jj7 01:15 BP 156 / 89; Pulse 86; Resp 16; Pulse Ox 98% ; j7 08/14 20:56 Body Mass Index 17.16 (45.36 kg, 162.56 cm) [facility] 08/14 20:56 Pain Scale: Adult mb9 MDM: 08/14 21:01 Patient medically screened. 08/15 01:02 Data reviewed: vital signs, nurses notes, lab test result(s), EKG, radiologic studies, cp plain films. 01:02 Consideration of Admission/Observation Escalation of care including cp admission/observation considered. 08/14 21:26 Order name: Basic Metabolic Panel; Complete Time: 22:32 cp 08/14 22:33 Interpretation: Normal except: NA 133; GLUC 482; BUN 31; CRE 1.43; GFR 43; CA 8.3. 08/14 21:26 Order name: CBC with Diff; Complete Time: 22:32 cp 08/14 22:33 Interpretation: Normal except: HGB 11.1; HCT 34.5; RDW 17.3; LYM% 13.8; EOSINOPHIL % cp 4.9. 08/14 21:26 Order name: Magnesium; Complete Time: 22:32 cp 08/14 21:26 Order name: PT-INR; Complete Time: 22:32 cp 08/14 21:26 Order name: Lactate w/ 2H reflex if indic.; Complete Time: 22:32 cp 08/14 21:26 Order name: Blood Culture Adult (2) cp 08/15 00:31 Order name: Glucose, Ancillary Testing EDMS 08/14 21:26 Order name: XRAY Chest (1 view); Complete Time: 22:40 cp 08/14 22:41 Interpretation: Report review. 08/14 22:41 Order name: CT Chest Wo Con cp 08/14 21:26 Order name: EKG; Complete Time: 21:26 cp 08/14 21:26 Order name: Cardiac monitoring; Complete Time: 23:58 cp 08/14 21:26 Order name: EKG - Nurse/Tech; Complete Time: 23:58 cp 08/14 21:26 Order name: IV Saline Lock; Complete Time: 21:57 cp 08/14 21:26 Order name: Labs collected and sent; Complete Time: 21:57 cp 08/14 21:26 Order name: O2 Per Protocol; Complete Time: 23:58 cp 08/14 21:26 Order name: O2 Sat Monitoring; Complete Time: 23:58 cp 08/15 00:08 Order name: Accucheck Blood Glucose; Complete Time: 00:18 cp / 00:32 Order name: Wound dressing: please clean and dress dialysis catheter; Complete Time: cp 01:04 EC:03 Rate is 86 beats/min. Rhythm is regular. ME interval is normal. QRS interval is normal. cp QT interval is prolonged at 406 msec. T waves are Inverted in leads I, aVL. Interpreted by me. Reviewed by me. Administered Medications: 08/14 22:49 Drug: hydrALAZINE IVP 10 mg Route: IVP; Site: left wrist; j7 08/15 01:19 Follow up: Response: Blood pressure is lowered j7 08/14 23:58 Drug: Acetaminophen PO 650 mg Route: PO; j7 08/15 01:19 Follow up: Response: Pain is decreased 7 00:21 Drug: Insulin Regular Human IVP 10 units {Co-Signature: ha1 (Angelica Castillo RN).} Route: jj7 IVP; Site: left wrist; 01:19 Follow up: Response: No adverse reaction 00:49 Drug: Doxycycline PO 100 mg Route: PO; 01:19 Follow up: Response: No adverse reaction j7 Disposition Summary: 08/15/22 01:02 Discharge Ordered Location: Home cp Problem: new cp Symptoms: have improved cp Condition: Stable cp Diagnosis - Diabetes mellitus due to underlying condition with hyperglycemia cp - Unspecified combined systolic (congestive) and diastolic (congestive) heart failure cp - Pleural effusion in other conditions classified elsewhere cp Followup: cp - With: Private Physician - When: 1 - 2 days - Reason: Recheck today's complaints Discharge Instructions: - Discharge Summary Sheet cp - Heart Failure, Diagnosis cp - Hyperglycemia cp - Blood Glucose Monitoring, Adult cp - Diabetes Mellitus and Nutrition, Adult cp Forms: - Medication Reconciliation Form cp - Thank You Letter cp - Antibiotic Education cp - Prescription Opioid Use cp Prescriptions: - Doxycycline Hyclate 100 mg Oral Tablet - take 1 tablet by ORAL route every 12 hours; 20 tablet; Refills: 0, Product cp Selection Permitted Signatures: Dispatcher [employer] EDNM Yogesh Mcclain PA PA cp Johnson, Juwairiyah RN RN jj7 Silvina Faith RN RN mb9 Angelica Castillo RN ha1
--- NOTE | 2022-08-15 01:03 | ER ---
Nurse's Notes [facility] Name: Melissa De Oliveira Age: 56 yrs Sex: Female : 1965 Arrival Date: 08/14/2022 Time: 20:31 Bed 19 Private MD: Diagnosis: Diabetes mellitus due to underlying condition with hyperglycemia;Unspecified combined systolic (congestive) and diastolic (congestive) heart failure;Pleural effusion in other conditions classified elsewhere Presentation: 08/14 20:56 Chief complaint: Patient states: "Brayden sent us here to get my port replaced. They mb9 said it looks infected and it's been hurting me for 1 week now. I get dialysis MWF". Coronavirus screen: At this time, the client does not indicate any symptoms associated with coronavirus-19. Ebola Screen: No symptoms or risks identified at this time. Initial Sepsis Screen: Does the patient meet any 2 criteria? No. Patient's initial sepsis screen is negative. Does the patient have a suspected source of infection? No. Patient's initial sepsis screen is negative. Risk Assessment: Do you want to hurt yourself or someone else? Patient reports no desire to harm self or others. Onset of symptoms was August 14, 2022. 20:56 Method Of Arrival: Ambulatory mb9 20:56 Acuity: DEYA 3 mb9 Historical: - Allergies: 20:59 Codeine; mb9 20:59 Ritalin; mb9 20:59 Tramadol HCl; mb9 - PMHx: 20:59 Diabetes - IDDM; Hypertensive disorder; neuropathy; Congestive heart failure; Kidney mb9 disease; lung failure; - PSHx: 20:59 Appendectomy; section; Cholecystectomy; mb9 - Immunization history:: Adult Immunizations up to date. - Social history:: Smoking status: Patient denies any tobacco usage or history of. Screenin:19 [facility] ED Fall Risk Assessment (Adult) History of falling in the last 3 months, jj7 including since admission No falls in past 3 months (0 pts) Confusion or Disorientation No (0 pts) Intoxicated or Sedated No (0 pts) Impaired Gait Yes (1 pt) Mobility Assist Device Used Yes (1 pt) Altered Elimination No (0 pt) Score/Fall Risk Level 0 - 2 = Low Risk Oriented to surroundings, Maintained a safe environment. Abuse screen: Denies threats or abuse. Nutritional screening: No deficits noted. Tuberculosis screening: No symptoms or risk factors identified. Assessment: 21:19 General: Appears in no apparent distress. uncomfortable, slender, Behavior is calm, jj7 cooperative, appropriate for age. Pain: Complains of pain in anterior aspect of right upper chest. Derm: DIALYSIS PORT CRUSTED OVER. NO REDNESS, PUS, OR ODOR NOTED Reports pain that is 6 out of 10 on a pain scale. Vital Signs: 20:56 BP 158 / 85; Pulse 74; Resp 18; Temp 98.4; Pulse Ox 90% on R/A; Weight 45.36 kg; Height mb9 5 ft. 4 in. ; Pain 10/10; 22:00 BP 167 / 102; Pulse 79; Resp 17; Pulse Ox 100% ; jj7 22:30 BP 166 / 98; Pulse 79; Resp 17; Pulse Ox 100% ; jj7 23:30 BP 154 / 85; Pulse 84; Resp 17; Pulse Ox 96% ; jj7 08/15 00:33 BP 156 / 86; Pulse 86; Resp 18; Pulse Ox 97% ; jj7 01:15 BP 156 / 89; Pulse 86; Resp 16; Pulse Ox 98% ; jj7 08/14 20:56 Body Mass Index 17.16 (45.36 kg, 162.56 cm) 9 08/14 20:56 Pain Scale: Adult mb9 ED Course: 08/14 20:52 Patient arrived in ED. kl 20:55 Arm band placed on. mb9 20:59 Triage completed. mb9 21:00 [facility] cp 21:00 Yogesh Jimenez MD is Attending Physician. cp 21:07 Misty Phillip RN is Primary Nurse. jj7 21:19 Patient has correct armband on for positive identification. Placed in gown. Bed in low jj7 position. Call light in reach. Side rails up X2. Adult w/ patient. Warm blanket given. 21:57 Blood Culture Adult (2) Sent. bc6 21:57 Lactate w/ 2H reflex if indic. Sent. bc6 21:57 Basic Metabolic Panel Sent. bc6 21:57 CBC with Diff Sent. bc6 21:57 Magnesium Sent. bc6 21:58 PT-INR Sent. bc6 21:58 Inserted saline lock: 20 gauge in left forearm, using aseptic technique. bc6 22:20 XRAY Chest (1 view) In Process Unspecified. EDMS 23:18 CT Chest Wo Con In Process Unspecified. EDMS 08/15 01:00 Wound care: to SCAB CRUSTED OVER DIALYSIS PORT N RIGHT CHEST WALL. located on anterior jj7 aspect of right upper chest was cleaned with Betadine, soaked in normal saline solution, dressed with 4X4s, Patient tolerated well. 01:15 No provider procedures requiring assistance completed. IV discontinued, intact, jj7 bleeding controlled, No redness/swelling at site. Pressure dressing applied. Administered Medications: 08/14 22:49 Drug: hydrALAZINE IVP 10 mg Route: IVP; Site: left wrist; jj7 08/15 01:19 Follow up: Response: Blood pressure is lowered jj7 08/14 23:58 Drug: Acetaminophen PO 650 mg Route: PO; jj7 08/15 01:19 Follow up: Response: Pain is decreased j7 00:21 Drug: Insulin Regular Human IVP 10 units {Co-Signature: ha1 (Angelica Castillo RN).} Route: jj7 IVP; Site: left wrist; 01:19 Follow up: Response: No adverse reaction j7 00:49 Drug: Doxycycline PO 100 mg Route: PO; jj7 01:19 Follow up: Response: No adverse reaction jj7 Medication: 08/14 21:19 VIS not applicable for this client. jj7 Outcome: 08/15 01:02 Discharge ordered by . umair 01:15 Discharged to home ambulatory, with family. jj7 01:15 Condition: good 01:15 Discharge instructions given to patient, family, Instructed on discharge instructions, follow up and referral plans. medication usage, Demonstrated understanding of instructions, follow-up care, medications, Prescriptions given X 1. 01:20 Patient left the ED. jj7 Signatures: Dispatcher [employer] EDElizabeth Plata RN Yogesh Kohli PA PA cp Johnson, Juwairiyah, RN RN jSilvina Valentin RN RN mb9 Carmela Forrester 6 Angelica Castillo RN ha1
[2022-08-15 02:12] VITALS: TEMP 98.4
[2022-08-15 02:19] VITALS: BP 156/89; O2SAT 98
--- NOTE | 2022-08-15 13:50 | RAD REPORT ---
EXAM DESCRIPTION: CT - Thorax Wo Con - 08/15/2022 1:09 am CLINICAL HISTORY: 56 years Female right side chest pain COMPARISON: July 03, 2021 TECHNIQUE: Images were obtained in axial, sagittal, and coronal planes. No intravenous contrast was administered. This exam was performed according to our departmental dose-optimization program which includes use of Automated Exposure Control, adjustment of the mA and/or kV according to patient size and/or use of i terative reconstruction technique. FINDINGS: No dilatation aortic root. Enlarged heart. Mediastinal adenopathy. 1.8 cm lymph node at ao rtopulmonary window. No pericardial effusion. Right central venous catheters present with the tips se en in the region of the right atrium. Large right pleural effusion. Compressive atelectatic change right lower lobe. Partially aerated righ t middle lobe. Findings involving the right middle lobe have improved when correlated with the prior study. Findings involving the right lower lobe are not significantly changed. Small to moderate left pleural effusion. Mild atelectatic change versus infiltrate left lower lobe. The findings on the left have improved when correlated with the prior study. No pneumothorax. Suspected interstitial edema. Subacute 2nd-7th ribs. Acute versus subacute fracture anterior left 6th and 7th ribs. No abnormality upper abdomen. IMPRESSION: Enlarged heart with interstitial edema. Large bilateral pleural effusion. Improved aerat ion right middle lobe with compressive atelectatic change right lower lobe unchanged. Small to modera te left pleural effusion. Atelectatic change versus infiltrate left lower lobe somewhat improved. M ultiple subacute right rib fractures. Acute versus subacute anterior left rib fractures. Electronically signed by: Kita Parekr MD 08/15/2022 12:47 AM CDT Due to temporary technical issues with the PACS/Fluency reporting system, reports are being signed by the in house radiologists without review as a courtesy to insure prompt reporting. The interpreting radiologist is fully responsible for the content of the report.
--- NOTE | 2022-08-16 05:52 | EKG ---
Test Date: 2022-08-14 Test Time: 23:56:18 Coiler: KATIE MEASUREMENT RESULTS: Intervals: Rate: 86 MA: 138 QRSD: 76 QT: 406 QTc: 485 [place]: P: 52 MA: 138 QRS: 53 T: 206 INTERPRETIVE STATEMENTS: Normal sinus rhythm Possible Left atrial enlargement Nonspecific ST and T wave abnormality Prolonged QT Abnormal ECG Compared to ECG 07/12/2022 11:53:08 Prolonged QT interval now present Myocardial infarct finding no longer present Possible ischemia no longer present ST (T wave) deviation still present Electronically Signed On 08-16-22 05:48:52 CDT by Rogerio Smith
== END 2022-08-15 01:20 | disposition home or self-care (01) ==
LOC: ER 20:31
DX: J90 Pleural effusion, not elsewhere classified (principal); I50.40 Unspecified combined systolic (congestive) and diastolic (congestive) heart failure; E08.65 Diabetes mellitus due to underlying condition with hyperglycemia; I10 Essential (primary) hypertension; Z88.5 Allergy status to narcotic agent; Z88.8 Allergy status to other drugs, medicaments and biological substances
CPT/HCPCS: 36415; 71045; 71250; 80048; 82947; 83605; 83735; 85025; 85610; 87040; 93005; 96374; 96375; 99285; J0360; J1815

== ENCOUNTER 2022-08-21 17:52 | Inpatient (IN) | payer BC ==
[2022-08-21 18:46] LABS: Hematocrit 39.2 % (36.0-45.0); Lymphocytes % 23.5 % (15.3-44.8); MCV 90.5 fL (80-100); MPV 7.7 fL (7.6-11.3); RBC Red Blood Cell Count 4.33 M/uL (3.86-4.86)
[2022-08-21 19:04] LABS: Albumin 3.1 g/dL (3.4-5.0); Bilirubin Direct 0.6 mg/dL (0-0.2); Bilirubin Indirect, Calculated 0.3 (0.2-0.8); Bilirubin Total 0.9 mg/dL (0.2-1.0); Magnesium 2.2 mg/dL (1.6-2.4); Potassium 4.7 mEq/L (3.5-5.1); Protein, Total 7.6 g/dL (6.4-8.2); Troponin High Sensitivity 36.4 pg/mL (<58.9)
--- NOTE | 2022-08-21 19:15 | RAD REPORT ---
EXAM DESCRIPTION: RAD - Chest Single View - 08/21/2022 6:54 pm CLINICAL HISTORY: weakness Chest pain. COMPARISON: Chest Single View dated 08/14/2022; Chest Single View dated 07/12/2022; Chest Single View d ated 07/03/2021; Chest Single View dated 09/06/2020 FINDINGS: Portable technique limits examination quality. There is a large right pleural effusion. The heart is moderately enlarged. No displaced fractures.Rig ht venous catheter tip in the SVC.
--- NOTE | 2022-08-21 20:43 | RAD REPORT ---
EXAM DESCRIPTION: CT - Head Brain Wo Cont - 08/21/2022 8:36 pm CLINICAL HISTORY: WEAKNESS Headache, drowsiness COMPARISON: Head Brain Wo Cont dated 09/07/2020; Head angio dated 09/06/2020 TECHNIQUE: All CT scans are performed using dose optimization technique as appropriate and may inclu de automated exposure control or mA/KV adjustment according to patient size. FINDINGS: No intracranial hemorrhage, hydrocephalus or extra-axial fluid collection.No areas of brai n edema or evidence of midline shift. The paranasal sinuses and mastoids are clear. The calvarium is intact. IMPRESSION: No acute intracranial abnormality.
--- NOTE | 2022-08-21 20:47 | RAD REPORT ---
EXAM DESCRIPTION: CT - Abdomen Pelvis Wo Contrast - 08/21/2022 8:36 pm CLINICAL HISTORY: Abdominal pain. ABD PAIN COMPARISON: Abdomen Pelvis W Contrast dated 09/03/2020 TECHNIQUE: CT imaging of the abdomen and pelvis was performed without contrast. Solid organ, bowel a nd vascular assessment is limited due to lack of IV and oral contrast. All CT scans are performed using dose optimization technique as appropriate and may include automated exposure control or mA/KV adjustment according to patient size. FINDINGS: Small left pleural effusion with atelectasis in the left lung base.Moderate right pleural effusion with right in the right lung base. The liver, spleen, pancreas, adrenal glands and kidneys are within normal limits for a limited non-co ntrast examination. Mild free fluid in the abdomen and pelvis. Air is present in the urinary bladder. The appendix is nor mal. No bowel obstruction. Cholecystectomy clips. The osseous structures are within normal limits. IMPRESSION: Moderate right pleural effusion with opacity in the right lung base likely infiltrate/ p neumonia. Mild ascites. Air in the urinary bladder could indicate urinary tract infection or recent instrumentation. A limited non-contrast examination was performed as detailed.
--- NOTE | 2022-08-21 21:45 | ER ---
Nurse's Notes [facility] Name: Melissa De Oliveira Age: 56 yrs Sex: Female : 1965 Arrival Date: 08/21/2022 Time: 17:52 Bed 6 Private MD: Diagnosis: Other pneumonia, unspecified organism Presentation: 08/21 18:17 Chief complaint: Patient states: Diarrhea, Dizziness and weakness started Friday. db States last dialysis was last Friday missed Friday and Friday due to weakness and diarrhea. In on Home O2 2L. Patient 88% RA. Coronavirus screen: Vaccine status: Patient reports being unvaccinated. Client denies travel out of the [place] in the last 14 days. At this time, the client does not indicate any symptoms associated with coronavirus-19. Ebola Screen: Patient negative for fever greater than or equal to 101.5 degrees Fahrenheit, and additional compatible Ebola Virus Disease symptoms Patient denies exposure to infectious person. Patient denies travel to an Ebola-affected area in the 21 days before illness onset. No symptoms or risks identified at this time. Initial Sepsis Screen: Does the patient meet any 2 criteria? No. Patient's initial sepsis screen is negative. Does the patient have a suspected source of infection? No. Patient's initial sepsis screen is negative. Risk Assessment: Do you want to hurt yourself or someone else? Patient reports no desire to harm self or others. Onset of symptoms was August 21, 2022. 18:17 Method Of Arrival: Ambulatory db 18:17 Acuity: DEYA 2 db Triage Assessment: 18:19 The onset of the patients symptoms was August 19, 2022 at 08:00. General: Appears in no db apparent distress. comfortable, emaciated, Behavior is calm, cooperative, Reports fatigue for. Pain: Complains of pain in abdomen. Neuro: Reports dizziness. GI: Reports lower abdominal pain, diarrhea, nausea. Historical: - Allergies: 18:19 Codeine; db 18:19 Ritalin; db 18:19 Tramadol HCl; db 18:19 Dilaudid; db 18:19 Morphine; db 18:19 Fentanyl; db - PMHx: 18:19 Congestive heart failure; Diabetes - IDDM; Hypertensive disorder; kidney disease; lung db failure; neuropathy; - PSHx: 18:19 Appendectomy; section; Cholecystectomy; db - Immunization history:: Client reports having NOT received the Covid vaccine. - Social history:: Smoking status: Patient denies any tobacco usage or history of. Screenin:[facility] ED Fall Risk Assessment (Adult) History of falling in the last 3 months, iw including since admission. Abuse screen: Denies threats or abuse. Denies injuries from another. Nutritional screening: No deficits noted. Tuberculosis screening: No symptoms or risk factors identified. Assessment: 18:50 General: Appears in no apparent distress. Behavior is calm, cooperative. Pain: Denies iw pain. Neuro: Level of Consciousness is awake, alert, obeys commands, Oriented to person, place, time, situation, Moves all extremities. Cardiovascular: Patient's skin is warm and dry. Respiratory: Respiratory effort is even, unlabored, Respiratory pattern is regular. GI: Abdomen is flat, Reports cramping, diarrhea. Derm: Skin is fragile, is thin, Skin is pale. Musculoskeletal: Range of motion: intact in all extremities. 19:12 General: Appears comfortable, Behavior is calm, cooperative. Pain: Denies pain. Neuro: ha1 Level of Consciousness is awake, alert, obeys commands, Oriented to person, place, time, situation. Cardiovascular: Capillary refill < 3 seconds Patient's skin is warm and dry. Respiratory: Respiratory effort is even, unlabored, Respiratory pattern is regular. GI: Abdomen is flat, non-distended, Bowel sounds present X 4 quads. Reports cramping, diarrhea. Musculoskeletal: Circulation, motion, and sensation intact. Range of motion: intact in all extremities. 20:10 Reassessment: Patient and/or family updated on plan of care and expected duration. Pain ha1 level reassessed. Patient is alert, oriented x 3, equal unlabored respirations, skin warm/dry/pink. 21:10 Reassessment: Patient and/or family updated on plan of care and expected duration. Pain ha1 level reassessed. Patient is alert, oriented x 3, equal unlabored respirations, skin warm/dry/pink. 22:10 Reassessment: Patient and/or family updated on plan of care and expected duration. Pain ha1 level reassessed. Patient is alert, oriented x 3, equal unlabored respirations, skin warm/dry/pink. 23:10 Reassessment: Patient and/or family updated on plan of care and expected duration. Pain ha1 level reassessed. Patient is alert, oriented x 3, equal unlabored respirations, skin warm/dry/pink. 08/22 00:24 Reassessment: Patient and/or family updated on plan of care and expected duration. Pain ha1 level reassessed. Patient is alert, oriented x 3, equal unlabored respirations, skin warm/dry/pink. Vital Signs: 08/21 18:17 BP 153 / 89; Pulse 64; Resp 24; Temp 98.1(O); Pulse Ox 88% on R/A; Weight 45.36 kg; db Height 5 ft. 3 in. ; 19:14 BP 158 / 96; Pulse 66; Resp 20 S; Pulse Ox 100% on 2 lpm NC; ha1 20:10 BP 164 / 94; Pulse 68; Resp 18 S; Pulse Ox 98% on 2 lpm NC; ha1 21:10 BP 156 / 95; Pulse 67; Resp 17 S; Pulse Ox 100% on 2 lpm NC; ha1 22:30 BP 161 / 103; Pulse 71; Resp 19; Pulse Ox 100% on 2 lpm NC; ha1 23:10 BP 105 / 82; Pulse 60; Resp 18 S; Pulse Ox 99% on 2 lpm NC; ha1 08/22 00:10 BP 122 / 88; Pulse 63; Resp 18; Pulse Ox 100% on 2 lpm NC; ha1 08/21 18:17 Body Mass Index 17.71 (45.36 kg, 160.02 cm) db 08/21 18:17 started on 2L NC O2 db ED Course: 17:52 Patient arrived in ED. rg4 17:53 Yogesh Mcclain PA is PHCP. cp 17:53 Raymon Alvares MD is Attending Physician. cp 18:13 Jyothi Chandra, KIRIT is Primary Nurse. iw 18:19 Triage completed. db 18:21 Arm band placed on Patient placed in an exam room. db 18:30 Initial lab(s) drawn, by me, sent to lab. Inserted saline lock: 22 gauge in left iw forearm, using aseptic technique. Blood collected. 18:51 Patient has correct armband on for positive identification. Client placed on continuous iw cardiac and pulse oximetry monitoring. NIBP monitoring applied. 18:56 XRAY Chest (1 view) In Process Unspecified. EDMS 20:38 CT Head Brain wo Cont In Process Unspecified. EDMS 20:38 CT Abd/Pelvis - Without Contrast In Process Unspecified. EDMS 21:43 Mateo Rodriguez MD is Hospitalizing Provider. 08/22 00:26 No provider procedures requiring assistance completed. Patient admitted, IV remains in ha1 place. Administered Medications: 08/21 21:35 Drug: Rocephin IV 1 grams Route: IV; Rate: calculated rate; Site: left antecubital; [facility] 22:00 Follow up: IV Status: Completed infusion j7 21:40 Drug: Zithromax IVPB 500 mg Route: IVPB; Infused Over: 1 hrs; Site: left antecubital; [facility] 22:40 Drug: Furosemide IVP 40 mg Route: IVP; Site: left forearm; [facility] Medication: 18:51 VIS not applicable for this client. iw Outcome: 21:44 Decision to Hospitalize by Provider. cp 08/22 00:26 Admitted to Tele accompanied by tech, via stretcher, room 411, with oxygen, with chart, ha1 Report called to KIRIT Mueller Condition: stable Discharge instructions given to patient, Instructed on the need for admit, Demonstrated understanding of instructions. 00:28 Patient left the ED. ha1 Signatures: Dispatcher [employer] Jyothi Henry, RN KIRIT iw Yogesh Mcclain PA PA cp Garcia, Rubi rg4 Angelica Castillo RN RN ha1 Misty Phillip RN RN jj7 Sarah Fuentes RN RN db
--- NOTE | 2022-08-21 21:45 | EDPHYS ---
Physician Documentation [facility] Name: Melissa De Oliveira Age: 56 yrs Sex: Female : 1965 Arrival Date: 08/21/2022 Time: 17:52 Bed 6 Private MD: ED Physician Raymon Alvares HPI: 08/21 18:35 This 56 yrs old Female presents to ER via Ambulatory with complaints of Weakness. cp 18:35 The patient presents to the emergency department with weakness of the entire body, cp generalized weakness. 18:35 Onset: The symptoms/episode began/occurred 2 day(s) ago. cp 18:35 Associated signs and symptoms: Pertinent positives: diarrhea. cp 18:35 Patient's baseline: Neuro: alert and fully oriented, Motor: no deficits, Ambulation: cp walks without assistance, Speech: normal. Current symptoms: general weakness, diarrhea, lower abdomen pain. Historical: - Allergies: 18:19 Codeine; db 18:19 Ritalin; db 18:19 Tramadol HCl; db 18:19 Dilaudid; db 18:19 Morphine; db 18:19 Fentanyl; db - PMHx: 18:19 Congestive heart failure; Diabetes - IDDM; Hypertensive disorder; kidney disease; lung db failure; neuropathy; - PSHx: 18:19 Appendectomy; section; Cholecystectomy; db - Immunization history:: Client reports having NOT received the Covid vaccine. - Social history:: Smoking status: Patient denies any tobacco usage or history of. ROS: 18:40 Constitutional: Positive for poor PO intake, Negative for body aches, chills, fever. cp 18:40 Eyes: Negative for injury, pain, redness, and discharge. cp 18:40 Cardiovascular: Negative for chest pain, edema, palpitations. 18:40 Respiratory: Negative for cough, shortness of breath, wheezing. 18:40 Abdomen/GI: Positive for abdominal pain, diarrhea, Negative for vomiting, constipation, black/tarry stool, rectal bleeding. 18:40 Back: Negative for pain at rest, pain with movement. cp 18:40 Neuro: Positive for weakness, Negative for altered mental status, dizziness, headache. 18:40 All other systems are negative. cp Exam: 18:45 Constitutional: The patient appears in no acute distress, alert, awake, cp non-diaphoretic, non-toxic, well developed, frail. 18:45 Head/Face: Normocephalic, atraumatic. cp 18:45 Eyes: Periorbital structures: appear normal, Conjunctiva: normal, no exudate, no injection, Sclera: no appreciated abnormality, Lids and lashes: appear normal, bilaterally. 18:45 ENT: External ear(s): are unremarkable, Nose: is normal, Mouth: Lips: dry, Oral mucosa: pink and intact, moist, Posterior pharynx: is normal, airway is patent, no erythema, no exudate. 18:45 Neck: ROM/movement: is normal, is supple, without pain, no range of motions limitations, no meningismus. 18:45 Chest/axilla: Inspection: normal. 18:45 Cardiovascular: Rate: normal, Rhythm: regular, Edema: is not appreciated, JVD: is not appreciated. 18:45 Respiratory: the patient does not display signs of respiratory distress, Respirations: normal, no use of accessory muscles, no retractions, labored breathing, is not present, Breath sounds: are clear throughout, no decreased breath sounds, no stridor, no wheezing. 18:45 Abdomen/GI: Inspection: abdomen appears normal, Bowel sounds: active, all quadrants, Palpation: soft, in all quadrants, mild abdominal tenderness, in the right lower quadrant and left lower quadrant, rebound tenderness, is not appreciated, involuntary guarding, is not appreciated. 18:45 Back: CVA tenderness, is absent. 18:45 Skin: cellulitis, is not appreciated, no rash present. 18:45 Neuro: Orientation: to person, place \T\ time. Mentation: is normal, Motor: moves all fours, general weakness with no focal deficits. 18:52 ECG was reviewed by the Attending Physician. cp Vital Signs: 18:17 BP 153 / 89; Pulse 64; Resp 24; Temp 98.1(O); Pulse Ox 88% on R/A; Weight 45.36 kg; db Height 5 ft. 3 in. ; 19:14 BP 158 / 96; Pulse 66; Resp 20 S; Pulse Ox 100% on 2 lpm NC; ha1 20:10 BP 164 / 94; Pulse 68; Resp 18 S; Pulse Ox 98% on 2 lpm NC; ha1 21:10 BP 156 / 95; Pulse 67; Resp 17 S; Pulse Ox 100% on 2 lpm NC; ha1 22:30 BP 161 / 103; Pulse 71; Resp 19; Pulse Ox 100% on 2 lpm NC; ha1 23:10 BP 105 / 82; Pulse 60; Resp 18 S; Pulse Ox 99% on 2 lpm NC; ha1 05 00:10 BP 122 / 88; Pulse 63; Resp 18; Pulse Ox 100% on 2 lpm NC; ha1 08/21 18:17 Body Mass Index 17.71 (45.36 kg, 160.02 cm) db 08/21 18:17 started on 2L NC O2 db MDM: 18:09 Patient medically screened. cp 21:30 Data reviewed: vital signs, nurses notes, lab test result(s), EKG, radiologic studies, cp CT scan, plain films. 21:30 Consideration of Admission/Observation Patient was admitted/placed on observation. cp Management of patient was discussed with the following: Hospitalist: José Miguel Lacey, LACER AND TIER will admit after discussion. I considered the following discharge prescriptions or medication management in the emergency department Medications were administered in the Emergency Department. See MAR. Care significantly affected by the following chronic conditions: Diabetes, Hypertension, Congestive Heart Failure, Chronic Kidney Disease. Counseling: I had a detailed discussion with the patient and/or guardian regarding: the historical points, exam findings, and any diagnostic results supporting the discharge/admit diagnosis, lab results, radiology results, the need for further work-up and treatment in the hospital. 08/21 18:27 Order name: Basic Metabolic Panel; Complete Time: 19:38 cp 08/21 19:38 Interpretation: Normal except: NA 135; GLUC 286; BUN 61; CRE 1.73; GFR 34. cp 08/21 18:27 Order name: CBC with Diff; Complete Time: 19:03 cp 08/21 19:04 Interpretation: Normal except: WBC 4.10; MCHC 31.6; RDW 18.2. cp 08/21 18:27 Order name: LFT's; Complete Time: 19:38 cp 08/21 19:38 Interpretation: Normal except: ALK 231; BILID 0.6; ALB 3.1; GLOB 4.5; A/G 0.7. cp 08/21 18:27 Order name: Magnesium; Complete Time: 19:38 cp 08/21 18:27 Order name: NT PRO-BNP; Complete Time: 19:38 cp 05/10 19:38 Interpretation: Abnormal: NT PRO-BNP 45506. cp /10 18:27 Order name: Troponin HS; Complete Time: 19:38 cp /10 18:27 Order name: Lipase; Complete Time: 19:38 cp /10 18:35 Order name: Ova And Parasites cp 08/21 18:35 Order name: Rotavirus Antigen cp 08/21 18:35 Order name: Stool Culture cp 08/21 18:35 Order name: CDIFF cp 08/21 21:03 Order name: Urinalysis W/Microscopic cp 08/21 21:03 Order name: Lactate w/ 2H reflex if indic. cp / 21:03 Order name: Blood Culture Adult (2) cp 08/21 22:17 Order name: COVID-19 SARS RT PCR cp 08/21 22:17 Order name: Influenza Screen (a \T\ B) cp 08/21 18:27 Order name: XRAY Chest (1 view); Complete Time: 19:38 cp 10 19:45 Order name: CT Head Brain wo Cont; Complete Time: 20:56 cp /10 20:56 Interpretation: Report reviewed. cp 08/21 19:45 Order name: CT Abd/Pelvis - Without Contrast; Complete Time: 20:56 cp 10 18:27 Order name: EKG; Complete Time: 18:28 cp /10 18:27 Order name: Cardiac monitoring; Complete Time: 18:39 cp /10 18:27 Order name: EKG - Nurse/Tech; Complete Time: 18:50 cp /10 18:27 Order name: IV Saline Lock; Complete Time: 18:39 cp /10 18:27 Order name: Labs collected and sent; Complete Time: 18:39 cp /10 18:27 Order name: O2 Per Protocol; Complete Time: 18:39 cp /10 18:27 Order name: O2 Sat Monitoring; Complete Time: 18:39 cp /10 21:03 Order name: Cath; Complete Time: 22:38 cp EC:52 Rate is 66 beats/min. Rhythm is regular. [place] interval is normal. QRS interval is normal. cp QT interval is normal. Interpreted by me. Reviewed by me. Administered Medications: 21:35 Drug: Rocephin IV 1 grams Route: IV; Rate: calculated rate; Site: left antecubital; j 22:00 Follow up: IV Status: Completed infusion 21:40 Drug: Zithromax IVPB 500 mg Route: IVPB; Infused Over: 1 hrs; Site: left antecubital; j 22:40 Drug: Furosemide IVP 40 mg Route: IVP; Site: left forearm; ha1 Disposition: 08/22 09:03 Co-signature as Attending Physician, Raymon Alvares MD I reviewed the patient's care rt provided by the Advanced Practice Provider and agree with the diagnosis and treatment plan. Disposition Summary: 08/21/22 21:44 Hospitalization Ordered Hospitalization Status: Inpatient Admission cp Provider: Mateo Rodriguez cp Location: Telemetry/MedSurg (Inpatient) cp Condition: Fair cp Problem: new cp Symptoms: have improved cp Bed/Room Type: Standard cp Room Assignment: 411(08/21/22 23:50) kl Diagnosis - Other pneumonia, unspecified organism cp Forms: - Medication Reconciliation Form cp - SBAR form cp Signatures: Dispatcher [employer] EDElizabeth Plata RN José Miguel Wells, ELEPHANT TAMER-C ELEPHANT TAMER-Cla1 Yogesh Mcclain PA PA cp Angelica Castillo RN RN ha1 Misty Phillip RN RN jj7 Benton, Danielle, RN RN db Turkington, Ryan, MD MD rt Corrections: (The following items were deleted from the chart) 08/21 23:50 21:44 cp ha1 23:50 23:50 411 ha1
[2022-08-21] MEDS ORDERED: NA CHLORIDE 0.9% 250 ML ONE (21:48)
[2022-08-21] MEDS ORDERED: AZITHROMYCIN 500 MG INJ IVPB ONE (21:48)
[2022-08-21] MEDS ORDERED: CEFTRIAXONE 1000 MG/VIAL ONE (21:48)
[2022-08-21] MEDS ORDERED: FUROSEMIDE 40 MG/4 ML VIAL ONE (22:47)
[2022-08-21 22:56] LABS: Urine Bacteria <20 /HPF (<20); Urine Bilirubin NEGATIVE (Negative); Urine Blood 2+ (Negative); Urine Clarity Turbid (Clear); Urine Color Yellow (Yellow); Urine Glucose 3+ (Negative); Urine Mucus Slight /HPF (None Seen); Urine Protein 3+ (Negative); Urine Urobilinogen Normal (Normal)
--- NOTE | 2022-08-21 22:59 | P.HP ---
Certification for Inpatient Patient admitted to: Inpatient Patient will require the following post-hospital care: None Practitioner: I am a practitioner with admitting privileges, knowledge of patient current condition, hospital course, and medical plan of care. Services: Services provided to patient in accordance with Admission requirements found in Title 42 Section 412.3 of the Code of Federal Regulations Patient History Date of Service: 08/21/22 Reason for admission: Pneumonia History of Present Illness: 56-year-old female with history of insulin-dependent diabetes, chronic diastolic CHF, hypertension, ESRD on HD MWF presents emergency department chief complaint of weakness, diarrhea, shortness of breath, chills. She has been unable to go to dialysis her last 2 sessions, last received dialysis on Friday the . She also reports has been having watery diarrhea the past few days run 5 episodes per day, notably she was placed on doxycycline recently on the third of this month. She states they are thinking of weaning her off of dialysis. She was evaluated in the emergency department her labs were significant for white blood cell count 4.1 sodium 135 creatinine 1.73 GFR 34 glucose 286 BNP 20,229 chest x-ray was performed which revealed large right pleural effusion CT of the head negative for acute findings CT abdomen pelvis without contrast shows modera te right pleural effusion with opacity in the right lung base likely infiltrate/pneumonia, mild ascites, air in the urinary bladder could indicate urinary tract infection or recent instrumentation. Urinalysis is still pending, patient denies urinary symptoms does report chills the past few days. She was started on IV antibiotics Rocephin/Zithromax in ED. ED provider wishes to admit for further evaluation and management. Allergies codeine Allergy (Verified 05/23/20 11:53) Hives tramadol Allergy (Verified 03/25/18 03:14) Hives methylphenidate [From Ritalin] Adverse Reaction (Verified 03/25/18 03:14) seizures Home Medications: Gabapentin 300 mg PO BID 05/23/20 Insulin Detemir [Levemir Flextouch] 10 unit SQ DAILY 05/23/20 Semaglutide [Ozempic] 0.25 mg SQ Q7D 08/27/20 Famotidine [Pepcid*] 20 mg PO BID PRN #60 tab 08/31/20 Glucerna Shake [Glucerna*] 237 ml PO BID #60 can 08/31/20 Lactobacillus Acidophilus [Acidophilus] 1 each PO TID #90 capsule 08/31/20 Aspirin [Aspirin EC 81 MG] 81 mg PO DAILY 30 Days #30 tablet. 09/07/20 Atorvastatin Calcium 20 mg PO BEDTIME 30 Days #30 tablet 09/07/20 Clopidogrel Bisulfate [Plavix] 75 mg PO DAILY 30 Days #30 tablet 09/07/20 Folic Acid 1 mg PO DAILY 30 Days #30 tablet 09/07/20 - Past Medical/Surgical History Diabetic: Yes -: Insulin-dependent diabetes -: Neuropathy -: ESRD on HD MWF -: Chronic diastolic congestive heart failure -: Hypertension -: cholecystectomy -: hysterectomy -: appendectomy -: Psychosocial/ Personal History: Patient is disabled, lives with daughter - Family History Father -: Hypertension, Cancer - Social History Smoking Status: Never smoker Alcohol use: No CD- Drugs: No Caffeine use: No Place of Residence: Home Review of Systems 10-point ROS is otherwise unremarkable General: Chills, Weakness, Malaise Respiratory: Cough, Shortness of Breath Gastrointestinal: Abdominal Pain, Diarrhea Physical Examination - Physical Exam General: Alert, In no apparent distress, Oriented x3 HEENT: Atraumatic, PERRLA, Mucous membr. moist/pink, EOMI, Sclerae nonicteric Neck: Supple, 2+ carotid pulse no bruit, No LAD, Without JVD or thyroid abnormality Respiratory: Diminished, Crackles/rales Cardiovascular: No edema, Regular rate/rhythm, Normal S1 S2 Capillary refill: <2 Seconds Gastrointestinal: Normal bowel sounds, No tenderness Musculoskeletal: No tenderness Integumentary: No rashes Neurological: Normal speech, Normal strength at 5/5 x4 extr, Normal tone, Normal affect - Studies Laboratory Data (last 24 hrs) 08/21/22 18:35: WBC 4.10 L, Hgb 12.4, Hct 39.2, Plt Count 212 08/21/22 18:35: Sodium 135 L, Potassium 4.7, BUN 61 H, Creatinine 1.73 H, Glucose 286 H, Magnesium 2.2, Total Bilirubin 0.9, AST 31, ALT 30, Alkaline Phosphatase 231 H, Lipase 54 Assessment and Plan - Plan Assessment: Pneumonia Diarrhea/weakness ESRD on HD MWF/acute on chronic diastolic congestive heart failure with pleural effusion/dyspnea Diabetes mellitus type 2insulin-dependent with hyperglycemia Hypertension Plan: Pneumonia Continue antibiotics, may benefit with repeat imaging after improvement/resolution of pleural effusion with dialysis/diuresis. Pulmonology consulted. And symptomatic. Diarrhea/weakness Stool studies ordered, CT negative for acute findings. PT consult in place. ESRD on HD MWF/acute on chronic diastolic congestive heart failure with pleural effusion/dyspnea Nephrology consulted, renal function overall good given ESRD, could likely benefit with dialysis for volume management. Patient reports they may be weaning her off of dialysis. Appreciate member of nephrology. Diabetes mellitus type 2insulin-dependent with hyperglycemia ACHS Accu-Chek, sliding scale insulin. A1c in morning. Hypertension Continue home medications. DVT PPX: Heparin subcu Code status: Full Discharge Plan: Home Plan to discharge in: 48 Hours - Advance Directives Does patient have a Living Will: No Does patient have a Durable POA for Healthcare: No - Code Status/Comfort Care Code Status Assessed: Yes (Full code) Critical Care: No Time Spent Managing Pts Care (In Minutes): 70
[2022-08-22] MEDS ORDERED: ONDANSETRON 4 MG/2 ML VIAL IV PRN (00:48)
[2022-08-22 06:17] LABS: Absolute Lymphocytes (CBC) 1.1 K/uL (0.7-4.9); Lymphocytes % 26.8 % (15.3-44.8); MCV 90.7 fL (80-100); MPV 8.4 fL (7.6-11.3); RBC Red Blood Cell Count 3.97 M/uL (3.86-4.86)
[2022-08-22 06:37] LABS: Magnesium 2.2 mg/dL (1.6-2.4); Potassium 4.4 mEq/L (3.5-5.1)
[2022-08-22 06:43] LABS: Thyroid Stimulating Hormone 6.78 uIU/mL (0.358-3.740)
[2022-08-22] MEDS: INSULIN -REGULAR HUMAN 50 UNIT/0.5 ML ML SQ SCH ×4 (07:30→21:00)
[2022-08-22] MEDS: HEPARIN 5000 UNIT/ML 1 ML VIAL SQ SCH ×2 (09:00→21:56)
[2022-08-22] MEDS ORDERED: AZITHROMYCIN IV 500 MG in NA CHLORIDE 0.9% 250 ML IVPB SCH ×2 (09:00→17:00)
[2022-08-22] MEDS: ACETAMINOPHEN 325 MG TABLET PO PRN (09:13)
[2022-08-22] MEDS: CEFTRIAXONE 1,000 MG in NA CHLORIDE 0.9% 50 ML IVPB SCH (09:14)
[2022-08-22] MEDS: FUROSEMIDE 20 MG/ 2ML VIAL IV SCH ×2 (09:15→17:42)
--- NOTE | 2022-08-22 14:27 | EKG ---
Test Date: 2022-08-21 Test Time: 18:46:43 Clinical Research Specialist: KULDIP MEASUREMENT RESULTS: Intervals: Rate: 66 RI: 154 QRSD: 76 QT: 454 QTc: 475 [place]: P: 60 RI: 154 QRS: 66 T: 212 INTERPRETIVE STATEMENTS: Normal sinus rhythm ST & T wave abnormality, consider lateral ischemia Prolonged QT Abnormal ECG Compared to ECG 08/14/2022 23:56:18 Possible ischemia now present ST (T wave) deviation still present Electronically Signed On 08-22-22 14:26:03 CDT by Dawit Bailey
--- NOTE | 2022-08-22 16:22 | P.PN ---
Subjective Date of Service: 08/22/22 Chief Complaint: Pneumonia No acute events since admission. She reports abdominal cramping and significant diarrhea over the last 4-5 days. She reports recently being started on empiric antibiotics about 1-1.5 weeks ago due to concern for a skin infection near her dialysis line. She denies any fevers, chills, chest pain, or shortness of breath. Review of Systems 10-point ROS is otherwise unremarkable Gastrointestinal: Abdominal Pain, Diarrhea Physical Examination - Vital Signs Temperature: 97.8 F Blood Pressure: 166/89 Pulse: 70 Respirations: 16 Pulse Ox (%): 95 - Physical Exam General: Alert, In no apparent distress, Oriented x3 HEENT: Atraumatic, Mucous membr. moist/pink, Sclerae nonicteric Neck: JVD not distended Respiratory: Clear to auscultation bilaterally, Normal air movement Cardiovascular: No edema, Regular rate/rhythm, Normal S1 S2, No gallops, No rubs, No murmurs Gastrointestinal: Soft and benign, Non-distended, No rebound, No guarding, Hyperactive, Tenderness (generalized) Musculoskeletal: No clubbing Integumentary: No rashes Neurological: Normal speech, Normal affect - Studies Laboratory Data (last 24 hrs) 08/21/22 18:35: WBC 4.10 L, Hgb 12.4, Hct 39.2, Plt Count 212 08/21/22 18:35: Sodium 135 L, Potassium 4.7, BUN 61 H, Creatinine 1.73 H, Glucose 286 H, Magnesium 2.2, Total Bilirubin 0.9, AST 31, ALT 30, Alkaline Phosphatase 231 H, Lipase 54 Microbiology Data (last 24 hrs): 08/21/22 22:00 Stool Rotavirus Antigen - Final Assessment And Plan - Plan # Right-Sided Community Acquired Pneumonia with Moderate Right Pleural Effusion - Evaluation thus far: - Does not currently meet sepsis criteria - Procalcitonin = pending - Chest x-ray = "there is a large right pleural effusion. The heart is moderately enlarged. No displaced fractures. Right venous catheter tip in the SVC." - CT abdomen/pelvis = "moderate right pleural effusion with opacity in the right lung base likely infiltrate/pneumonia. Mild ascites. Air in the urinary bladder could indicate urinary tract infection or recent instrumentation" - Management plan: - Consulted Pulmonology and spoke with Dr. Brennan -recommendations appreciated - Recommended IR consult for thoracentesis - Consulted Respiratory Therapy - Supplemental oxygen to maintain SpO2 > 92% - Ceftriaxone 1 g IV q24hr - Azithromycin 500 mg IV q24hr - Encouraged incentive spirometry # Diarrhea with Recent Antibiotic Exposure - Clostridium difficile pending - Influenza, Rotavirus negative - Supportive care # Generalized Weakness due to above - CT head = "No acute intracranial abnormality." - PT consulted # Hyperglycemia in Type II Diabetes Mellitus - Correction scale insulin # End-Stage Renal Disease on MWF iHD - Nephrology consulted - recommendations appreciated - Urinalysis = 3+ glucose, 2+ blood, 1120 RBC, > 20 hyaline casts, 3+ protein - Monitor urine output - Renally dose medications # Hypothyroidism - TSH 6.78, Free T4 0.91 - Continue home levothyroxine # Hypertension - Continue home carvedilol # Restless Leg Syndrome - Continue home gabapentin, ropinirole Mateo Rodriguez M.D.
[2022-08-22] MEDS: NEPRO SHAKE 237 ML CAN PO SCH (21:00)
[2022-08-22] MEDS: GABAPENTIN 100 MG CAP PO SCH (21:56)
[2022-08-22] MEDS: ROPINIROLE HCL 1 MG TAB PO SCH (21:56)
[2022-08-22] MEDS: carvediloL 3.125 MG TAB PO SCH (21:56)
[2022-08-23 05:12] LABS: Hematocrit 35.5 % (36.0-45.0); MCV 90.7 fL (80-100); MPV 8.3 fL (7.6-11.3); RBC Red Blood Cell Count 3.92 M/uL (3.86-4.86)
[2022-08-23 05:24] LABS: Magnesium 2.1 mg/dL (1.6-2.4); Potassium 4.7 mEq/L (3.5-5.1)
[2022-08-23] MEDS: LEVOTHYROXINE SOD 0.05 MG TABLET PO SCH (06:41)
[2022-08-23] MEDS: INSULIN -REGULAR HUMAN 50 UNIT/0.5 ML ML SQ SCH ×4 (07:30→21:00)
--- NOTE | 2022-08-23 08:12 | P.CNS ---
Date of Consult: 08/22/22 Reason for Consult: Pleural effusion Chief Complaint: Shortness of breath pleural effusion History of Present Illness: Patient is 56 years of age. To the hospital he was complaining of diarrhea for the past 3 days feeling dizzy he has a history of COPD although she has never smoked complaining some chills. With hypoxemia was found to have a significant effusion on the right side currently she has had a thoracentesis before patient is on dialysis missed her recent dialysis chest x-ray shows a significant effusion on the right side which is chronic and has progressed denies any chest pain Allergies codeine Allergy (Verified 05/23/20 11:53) Hives tramadol Allergy (Verified 03/25/18 03:14) Hives methylphenidate [From Ritalin] Adverse Reaction (Verified 03/25/18 03:14) seizures Home Medications: Carvedilol [Coreg] 1 tab PO BID 08/22/22 Furosemide 1 tab PO BID 08/22/22 Gabapentin 200 mg PO BID 08/22/22 Insulin Lispro [Humalog Kwikpen U-100] See Protocol SQ ACHS 08/22/22 Levothyroxine [Synthroid*] 1 tab PO DAILY 08/22/22 Pantoprazole [Protonix Tab*] 1 tab PO DAILY 08/22/22 Ropinirole HCl [Requip] 1 mg PO BID 08/22/22 Sertraline HCl 1 tab PO DAILY 08/22/22 Temazepam 1 cap PO BEDTIME 08/22/22 - Past Medical/Surgical History Diabetic: Yes -: Insulin-dependent diabetes -: Neuropathy -: ESRD on HD MWF -: Chronic diastolic congestive heart failure -: Hypertension -: cholecystectomy -: hysterectomy -: appendectomy -: Psychosocial/ Personal History: Patient is disabled, lives with daughter - Family History Father Medical History: Hypertension, Cancer - Social History Smoking Status: Unknown if ever smoked Alcohol use: No CD- Drugs: No Caffeine use: No Place of Residence: Home Review of Systems 10-point ROS is otherwise unremarkable General: Weakness Respiratory: Shortness of Breath Physical Examination Temp Pulse Resp BP Pulse Ox 97.4 F 64 16 142/82 H 96 08/23/22 04:00 08/23/22 04:00 08/23/22 04:00 08/23/22 04:00 08/23/22 04:00 General: Alert, Oriented x3 Respiratory: Diminished (Diminished on the right side) Cardiovascular: No edema, Regular rate/rhythm, Normal S1 S2 Gastrointestinal: Normal bowel sounds, Soft and benign - Problems (1) Pleural effusion Current Visit: Yes Status: Acute Plan: Patient is 56 years of age on dialysis admitted with worsening dyspnea and low sats She has been complaining of diarrhea feeling dizzy for the past 3 days history of COPD has never smoked patient has had some stents in her legs history of stroke x-ray shows a significant effusion on the right side echocardiogram cardiogram previously showed normal left ventricular function cussed with the patient plan to do a large-volume thoracentesis aware of the risk and benefit including bleeding infection and lung collapse patient does not take any anticoagulants or antiplatelet agents verified chemistries reviewed creatinine is mildly elevated there is no clinical evidence of sepsis can DC Zithromax continue with Rocephin
[2022-08-23] MEDS: HEPARIN 5000 UNIT/ML 1 ML VIAL SQ SCH ×2 (09:00→21:00)
[2022-08-23] MEDS: NEPRO SHAKE 237 ML CAN PO SCH ×2 (09:00→21:22)
--- NOTE | 2022-08-23 10:29 | RAD REPORT ---
EXAM DESCRIPTION: RAD - Chest Single View - 08/23/2022 10:21 am CLINICAL HISTORY: Status Post Thorocentesis COMPARISON: Chest Single View dated 08/21/2022; Chest Single View dated 08/14/2022; Chest Single View d ated 07/12/2022; Chest Single View dated 07/03/2021; Thoracentesis w/ US Guide dated 08/23/2022; Abdomen Pelvis Wo Contrast dated 08/21/2022 FINDINGS: Status post right-sided thoracentesis. Decreased pleural fluid. No pneumothorax. Bilateral pleural effusions and edema persists. Dialysis catheter. Cardiomegaly . IMPRESSION: Status post right-sided thoracentesis. No pneumothorax. Small bilateral effusions and ed lotus remain.
[2022-08-23] MEDS: CEFTRIAXONE 1,000 MG in NA CHLORIDE 0.9% 50 ML IVPB SCH (10:42)
[2022-08-23] MEDS: GABAPENTIN 100 MG CAP PO SCH ×2 (10:43→21:21)
[2022-08-23] MEDS: ROPINIROLE HCL 1 MG TAB PO SCH ×2 (10:43→21:21)
[2022-08-23] MEDS: carvediloL 3.125 MG TAB PO SCH ×2 (10:44→21:21)
[2022-08-23] MEDS: FUROSEMIDE 20 MG/ 2ML VIAL IV SCH ×2 (10:44→17:19)
--- NOTE | 2022-08-23 11:04 | RAD REPORT ---
EXAM DESCRIPTION: US - Thoracentesis w/ US Guide - 08/23/2022 10:48 am CLINICAL HISTORY: Pleural effusion. R sided effusion COMPARISON: Extremity Nonvascular Limited dated 05/17/2020 FINDINGS: Preoperative diagnosis: Right pleural effusion Post operative diagnosis: Same Conscious Sedation: None. Estimated blood loss: Minimal Specimens:A small volume of fluid was sent for requested lab studies. The patient was placed in the upright recumbent position and the was prepped and draped in the usual sterile fashion. 1% Lidocaine was infiltrated into the soft tissues for local anesthesia. Under so nographic guidance, a thoracentesis needle and 6 Romansh catheter was advanced into the right pleural space. Approximately 1200 yellow fluid was aspirated. Samples were sent to pathology for requested an alysis. The patient tolerated the procedure without immediate complication and transferred to the [facility] or in stable condition. IMPRESSION: Successful ultrasound-guided right thoracentesis as detailed.
[2022-08-23 13:34] LABS: Appearance CLEAR (CLEAR); Body Fluid Source PLEURAL; Body Fluid WBC 120 /mm^3; Color of fluid Yellow (COLORLESS)
--- NOTE | 2022-08-23 14:52 | P.PN ---
Subjective Date of Service: 08/23/22 Chief Complaint: Shortness of breath pleural effusion No acute events overnight. She reports that her shortness of breath and diarrhea have improved. Plan is for thoracentesis this morning. She denies any fevers, chills, chest pain, or shortness of breath. Review of Systems 10-point ROS is otherwise unremarkable Respiratory: Shortness of Breath Physical Examination - Vital Signs Temperature: 97.2 F Blood Pressure: 155/72 Pulse: 72 Respirations: 16 Pulse Ox (%): 98 Assessment And Plan - Plan - Physical Exam General: Alert, In no apparent distress, Oriented x3 HEENT: Atraumatic, Mucous membr. moist/pink, Sclerae nonicteric Neck: JVD not distended Respiratory: Diminished breath sounds in the posterior right lung base Cardiovascular: No edema, Regular rate/rhythm, No murmurs Gastrointestinal: Soft, Non-distended, No rebound, No guarding, Hyperactive, Minimal tenderness Musculoskeletal: No clubbing Integumentary: No rashes Neurological: Normal speech, Normal affect # Concern for Right-Sided Community Acquired Pneumonia with Moderate Right Pleural Effusion - Evaluation thus far: - Does not currently meet sepsis criteria - Procalcitonin = < 0.05 - Chest x-ray = "there is a large right pleural effusion. The heart is moderately enlarged. No displaced fractures. Right venous catheter tip in the SVC." - CT abdomen/pelvis = "moderate right pleural effusion with opacity in the right lung base likely infiltrate/pneumonia. Mild ascites. Air in the urinary bladder could indicate urinary tract infection or recent instrumentation" - Management plan: - Consulted Pulmonology and spoke with Dr. Brennan -recommendations appreciated - Recommended IR consult for thoracentesis - Consulted Respiratory Therapy - Supplemental oxygen to maintain SpO2 > 92% - Ceftriaxone 1 g IV q24hr - Azithromycin 500 mg IV q24hr - Encouraged incentive spirometry # Diarrhea with Recent Antibiotic Exposure - resolved (possibly antibiotic- induced diarrhea?) - Clostridium difficile cancelled as diarrhea has resolved - Influenza, Rotavirus negative - Supportive care # Generalized Weakness due to above - CT head = "No acute intracranial abnormality." - PT consulted # Hyperglycemia in Type II Diabetes Mellitus - Correction scale insulin # End-Stage Renal Disease on MWF iHD - Nephrology consulted - recommendations appreciated - Urinalysis = 3+ glucose, 2+ blood, 1120 RBC, > 20 hyaline casts, 3+ protein - Monitor urine output - Renally dose medications # Hypothyroidism - TSH 6.78, Free T4 0.91 - Continue home levothyroxine # Hypertension - Continue home carvedilol # Restless Leg Syndrome - Continue home gabapentin, ropinirole Mateo Rodriguez M.D.
[2022-08-24 04:35] LABS: Absolute Lymphocytes (CBC) 0.9 K/uL (0.7-4.9); Hematocrit 33.5 % (36.0-45.0); Lymphocytes % 22.2 % (15.3-44.8); MCV 90.3 fL (80-100); MPV 8.1 fL (7.6-11.3); RBC Red Blood Cell Count 3.71 M/uL (3.86-4.86)
[2022-08-24 04:46] LABS: Potassium 4.4 mEq/L (3.5-5.1)
[2022-08-24] MEDS: LEVOTHYROXINE SOD 0.05 MG TABLET PO SCH (05:34)
[2022-08-24] MEDS: INSULIN -REGULAR HUMAN 50 UNIT/0.5 ML ML SQ SCH ×4 (07:30→21:00)
--- NOTE | 2022-08-24 07:46 | RAD REPORT ---
EXAM DESCRIPTION: RAD - Chest Single View - 08/24/2022 5:43 am CLINICAL HISTORY: follow-up thoracentesis COMPARISON: Chest Single View dated 08/23/2022; Chest Single View dated 08/21/2022; Chest Single View dated 08/14/2022; Chest Single View dated 07/12/2022; Abdomen Pelvis Wo Contrast dated 08/21/2022; Thor ax Wo Con dated 08/14/2022; Chest For Pe Angio dated 07/03/2021 FINDINGS: Small right-sided hydropneumothorax. There is incomplete expansion of the right lower lobe . This is probably secondary to ex vacuo pneumothorax from a partially trapped lung. Cardiomegaly. Sm all left effusion. Portions of the right lower lung consolidated. Right IJ approach dialysis catheter . IMPRESSION: Right-sided hydropneumothorax most likely secondary to an ex vacuo pneumothorax and part ially trapped lung. This could be related to endobronchial occlusion (such as from tumor) or visceral pleural thickening. The latter is probably more likely given the long-standing effusion.
[2022-08-24] MEDS: HEPARIN 5000 UNIT/ML 1 ML VIAL SQ SCH ×2 (08:38→21:01)
[2022-08-24] MEDS: carvediloL 3.125 MG TAB PO SCH ×2 (08:40→20:59)
[2022-08-24] MEDS: ROPINIROLE HCL 1 MG TAB PO SCH ×2 (08:40→20:59)
[2022-08-24] MEDS: FUROSEMIDE 20 MG/ 2ML VIAL IV SCH ×2 (08:40→16:26)
[2022-08-24] MEDS: GABAPENTIN 100 MG CAP PO SCH ×2 (08:41→21:01)
[2022-08-24] MEDS: NEPRO SHAKE 237 ML CAN PO SCH ×2 (08:41→21:01)
[2022-08-24] MEDS: CEFTRIAXONE 1,000 MG in NA CHLORIDE 0.9% 50 ML IVPB SCH (08:41)
[2022-08-24] MEDS: SERTRALINE HCL 50 MG TAB PO SCH (10:21)
[2022-08-24] MEDS: ACETAMINOPHEN 325 MG TABLET PO PRN (13:01)
--- NOTE | 2022-08-24 16:06 | P.PN ---
Subjective Date of Service: 08/24/22 Chief Complaint: Shortness of breath pleural effusion POD # 1 from US-guided thoracentesis. She tolerated the procedure well. This morning, she reports generalized malaise and shortness of breath. Repeat chest x-ray this morning revealed, "right-sided hydropneumothorax most likely sec ondary to an ex vacuo pneumothorax and partially trapped lung. This could be related to endobronchial occlusion (such as from tumor) or visceral pleural thickening. The latter is probably more likely given the long-standing effusion." I spoke with radiology, Dr. Diaz, who recommended a General Surgery consultation for possible chest tube placement. He stated that if the chest tube is unsuccessful at lung re-expansion, she may require pleurodesis. General Surgery was consulted and I notified Dr. Lee. Review of Systems 10-point ROS is otherwise unremarkable General: Malaise Respiratory: Shortness of Breath Physical Examination - Vital Signs Temperature: 97.2 F Blood Pressure: 150/72 Pulse: 58 Respirations: 20 Pulse Ox (%): 99 - Studies Microbiology Data (last 24 hrs): 08/21/22 22:00 Stool Culture & Sensitivity - Final Assessment And Plan - Plan - Physical Exam General: Alert, In no apparent distress, Oriented x3 HEENT: Atraumatic, Mucous membr. moist/pink, Sclerae nonicteric Neck: JVD not distended Respiratory: Diminished breath sounds in the posterior right lung base Cardiovascular: No edema, Regular rate/rhythm, No murmurs Gastrointestinal: Soft, Non-distended, No rebound, No guarding, Hyperactive, No tenderness Musculoskeletal: No clubbing Integumentary: No rashes Neurological: Normal speech, Normal affect # Concern for Right-Sided Community Acquired Pneumonia with Moderate Right Pleural Effusion s/p US-Guided Thoracentesis # Post-Thoracentesis Right-Sided Hydropneumothorax - Evaluation thus far: - Does not currently meet sepsis criteria - Procalcitonin = < 0.05 - Chest x-ray = "there is a large right pleural effusion. The heart is moderately enlarged. No displaced fractures. Right venous catheter tip in the SVC." - CT abdomen/pelvis = "moderate right pleural effusion with opacity in the right lung base likely infiltrate/pneumonia. Mild ascites. Air in the urinary bladder could indicate urinary tract infection or recent instrumentation" - Chest x-ray (08/24) = "right-sided hydropneumothorax most likely secondary to an ex vacuo pneumothorax and partially trapped lung. This could be related to endobronchial occlusion (such as from tumor) or visceral pleural thickening. The latter is probably more likely given the long-standing effusion." - Management plan: - Consulted Pulmonology and spoke with Dr. Brennan -recommendations appreciated - S/P thoracentesis - Spoke with Dr. Diaz (Radiology), who recommended a General Surgery consult for chest tube placement. He stated if chest tube does not result in lung re- expansion, she may require transfer for pleurodesis - Consulted General Surgery and spoke with Dr. Lee - recommendations appreciated - Consulted Respiratory Therapy - Supplemental oxygen to maintain SpO2 > 92% - Ceftriaxone 1 g IV q24hr - Azithromycin 500 mg IV q24hr - Encouraged incentive spirometry # Diarrhea with Recent Antibiotic Exposure - resolved (possibly antibiotic- induced diarrhea?) - Clostridium difficile stool testing cancelled as diarrhea has resolved - Influenza, Rotavirus negative - Supportive care # Generalized Weakness due to above - CT head = "No acute intracranial abnormality." - PT consulted # Hyperglycemia in Type II Diabetes Mellitus - Correction scale insulin # End-Stage Renal Disease on MWF iHD - Nephrology consulted - recommendations appreciated - Urinalysis = 3+ glucose, 2+ blood, 1120 RBC, > 20 hyaline casts, 3+ protein - Monitor urine output - Renally dose medications # Hypothyroidism - TSH 6.78, Free T4 0.91 - Continue home levothyroxine # Hypertension - Continue home carvedilol # Restless Leg Syndrome - Continue home gabapentin, ropinirole Mateo Rodriguez M.D.
--- NOTE | 2022-08-24 17:47 | P.CNS ---
Date of Consult: 08/24/22 PC: I was asked to see this 56-year-old female in regards to right-sided hemopneumothorax. HPC: Patient, who is on chronic dialysis, presenting to the hospital with diarrhea, and failure to thrive. PSHx: Cholecystectomy, appendectomy, hysterectomy, PMHx: Chronic COPD Social Hx: Allergic to codeine tramadol Sys R: As document O/E: Awake alert comfortable at the moment, in no acute distress HEENT: Within normal limits. No distended neck veins. Chest: Chest movement is equal bilaterally Abd: Negative Data: Chest x-ray shows right-sided pleural effusion with small apical pneumo Impression: I was asked to see this patient in regards to her pleural effusion. Apparently it was drained under ultrasound guidance a few days ago. Patient today has small apical pneumothorax, and possible recurrence of her fluid. Plan: Patient would benefit from evaluation by thoracic surgeon. It is possible that she has a lung entrapment syndrome from previous issues in the past. Also has recurrent effusion of unknown etiology. Should the patient require an emergency chest tube, I am more than happy to oblige, however this situation I feel discussion with the thoracic surgeon would be pertinent for the patient's long-term care.
[2022-08-25 04:56] LABS: Protime INR 1.33
[2022-08-25 05:07] LABS: Bilirubin Direct 0.3 mg/dL (0-0.2); Potassium 4.6 mEq/L (3.5-5.1)
[2022-08-25] MEDS: LEVOTHYROXINE SOD 0.05 MG TABLET PO SCH (05:43)
[2022-08-25] MEDS: INSULIN -REGULAR HUMAN 50 UNIT/0.5 ML ML SQ SCH ×5 (07:30→23:27)
--- NOTE | 2022-08-25 07:49 | RAD REPORT ---
EXAM DESCRIPTION: RAD - Chest Single View - 08/25/2022 5:15 am CLINICAL HISTORY: follow-up Chest pain. COMPARISON: Chest Single View dated 08/24/2022; Chest Single View dated 08/23/2022; Chest Single View dated 08/21/2022; Chest Single View dated 08/14/2022 FINDINGS: Portable technique limits examination quality. Moderate to large right pleural effusion is noted. Trace amount air also present in the pleural space . The size of the right pleural effusion has increased since yesterday's study moderately. Bilateral pulmonary opacities, greater on the right, likely representing pulmonary edema. The heart is moderate ly enlarged. Right-sided venous catheter its tip in the SVC. IMPRESSION: Moderate increase in size of right pleural effusion since comparative study from yesterd ay. The amount of air in the right pleural space appears diminished.
[2022-08-25] MEDS: HEPARIN 5000 UNIT/ML 1 ML VIAL SQ SCH (08:25)
[2022-08-25] MEDS: FUROSEMIDE 20 MG/ 2ML VIAL IV SCH ×2 (08:25→16:21)
[2022-08-25] MEDS: ROPINIROLE HCL 1 MG TAB PO SCH ×2 (08:26→20:06)
[2022-08-25] MEDS: CEFTRIAXONE 1,000 MG in NA CHLORIDE 0.9% 50 ML IVPB SCH (08:26)
[2022-08-25] MEDS: SERTRALINE HCL 50 MG TAB PO SCH (08:26)
[2022-08-25] MEDS: carvediloL 3.125 MG TAB PO SCH ×2 (08:26→20:05)
[2022-08-25] MEDS: NEPRO SHAKE 237 ML CAN PO SCH ×2 (09:00→20:09)
[2022-08-25] MEDS: GABAPENTIN 100 MG CAP PO SCH ×2 (10:52→20:05)
--- NOTE | 2022-08-25 16:12 | P.PN ---
Subjective Date of Service: 08/25/22 Chief Complaint: Shortness of breath pleural effusion POD # 2 from US-guided thoracentesis. She reports no significant change in her symptoms today compared to yesterday. She continues to experience shortness of breath, worse with exertion. She denies any chest pain or palpitations. Review of Systems 10-point ROS is otherwise unremarkable Respiratory: Shortness of Breath Physical Examination - Vital Signs Temperature: 97.1 F Blood Pressure: 148/76 Pulse: 63 Respirations: 20 Pulse Ox (%): 98 Assessment And Plan - Plan - Physical Exam General: Alert, In no apparent distress, Oriented x3 HEENT: Atraumatic, Mucous membr. moist/pink, Sclerae nonicteric Neck: JVD not distended Respiratory: Diminished breath sounds in the posterior right lung base Cardiovascular: No edema, Regular rate/rhythm, No murmurs Gastrointestinal: Soft, Non-distended, No rebound, No guarding, Normoactive, No tenderness Musculoskeletal: No clubbing Integumentary: No rashes Neurological: Normal speech, Normal affect # Concern for Right-Sided Community Acquired Pneumonia with Moderate Right Pleural Effusion s/p US-Guided Thoracentesis # Post-Thoracentesis Right-Sided Hydropneumothorax - Evaluation thus far: - Does not currently meet sepsis criteria - Procalcitonin = < 0.05 - Chest x-ray = "there is a large right pleural effusion. The heart is moderately enlarged. No displaced fractures. Right venous catheter tip in the SVC." - CT abdomen/pelvis = "moderate right pleural effusion with opacity in the right lung base likely infiltrate/pneumonia. Mild ascites. Air in the urinary bladder could indicate urinary tract infection or recent instrumentation" - Chest x-ray (08/24) = "right-sided hydropneumothorax most likely secondary to an ex vacuo pneumothorax and partially trapped lung. This could be related to endobronchial occlusion (such as from tumor) or visceral pleural thickening. The latter is probably more likely given the long-standing effusion." - Chest x-ray (08/25) = "moderate increase in size of right pleural effusion since comparative study from yesterday. The amount of air in the right pleural space appears diminished." - Management plan: - Consulted Pulmonology and spoke with Dr. Brennan -recommendations appreciated - S/P thoracentesis - Spoke with Dr. Diaz (Radiology), who recommended a General Surgery consult for chest tube placement. He stated if chest tube does not result in lung re- expansion, she may require transfer for pleurodesis/decortication - Consulted General Surgery and spoke with Dr. Lee - recommendations appreciated - He is concerned that she may have lung entrapment syndrome and recommends that she be evaluated by a thoracic surgeon - I offered this to her and explained that a Thoracic Surgery evaluation would require transfer to a hospital with that service. She stated that she is only willing to transfer if it is to [facility] - A transfer request was initiated - Consulted Respiratory Therapy - Supplemental oxygen to maintain SpO2 > 92% - Ceftriaxone 1 g IV q24hr - Encouraged incentive spirometry # Diarrhea with Recent Antibiotic Exposure - resolved (possibly antibiotic- induced diarrhea?) - Clostridium difficile stool testing cancelled as diarrhea has resolved - Influenza, Rotavirus negative - Supportive care # Generalized Weakness due to above - CT head = "No acute intracranial abnormality." - PT consulted # Hyperglycemia in Type II Diabetes Mellitus - Correction scale insulin # End-Stage Renal Disease on iHD - Nephrology consulted - recommendations appreciated - Urinalysis = 3+ glucose, 2+ blood, 1120 RBC, > 20 hyaline casts, 3+ protein - Monitor urine output - Renally dose medications # Hypothyroidism - TSH 6.78, Free T4 0.91 - Continue home levothyroxine # Hypertension - Continue home carvedilol # Restless Leg Syndrome - Continue home gabapentin, ropinirole Mateo Rodriguez M.D.
[2022-08-25] MEDS: ACETAMINOPHEN 325 MG TABLET PO PRN (16:34)
--- NOTE | 2022-08-25 19:34 | RAD REPORT ---
EXAM DESCRIPTION: CT - Thorax Wo Con CLINICAL HISTORY: Chest pain follow-up COMPARISON: Thorax Wo Con dated 08/14/2022; Chest Single View dated 08/25/2022 FINDINGS: Mild to moderate atelectasis is present in both lung bases. Large right pleural effusion i s noted. No pneumothorax. Small left pleural effusion. No axillary, mediastinal or hilar adenopathy. Right-sided venous catheter. The heart is moderately en larged. No lytic or blastic bone lesion. Cholecystectomy clips. All CT scans are performed using dose optimization technique as appropriate and may include automated exposure control or mA/KV adjustment according to patient size. IMPRESSION: Large right pleural effusion is noted without pneumothorax.This is likely related to be accumulation of fluid after thoracentesis.
[2022-08-25] MEDS: TEMAZEPAM 15 MG CAP PO SCH (21:00)
[2022-08-26] MEDS: LEVOTHYROXINE SOD 0.05 MG TABLET PO SCH (06:11)
[2022-08-26 06:39] LABS: Absolute Lymphocytes (CBC) 0.9 K/uL (0.7-4.9); Hematocrit 35.9 % (36.0-45.0); Lymphocytes % 28.1 % (15.3-44.8); MCV 90.7 fL (80-100); MPV 8.5 fL (7.6-11.3); RBC Red Blood Cell Count 3.96 M/uL (3.86-4.86)
[2022-08-26 06:41] LABS: Protime INR 1.28
[2022-08-26 06:43] LABS: Potassium 5.5 mEq/L (3.5-5.1)
[2022-08-26] MEDS: INSULIN -REGULAR HUMAN 50 UNIT/0.5 ML ML SQ SCH ×4 (07:30→21:00)
[2022-08-26] MEDS ORDERED: D50W 25 GM/50 ML SYRINGE IV ONE (08:11)
[2022-08-26] MEDS ORDERED: D50W 25 GM/50 ML SYRINGE IV PRN (08:11)
[2022-08-26] MEDS ORDERED: GLUCAGON 1 MG/VIAL IM PRN (08:11)
[2022-08-26] MEDS ORDERED: INSULIN -REGULAR HUMAN 50 UNIT/0.5 ML ML IV ONE (08:12)
[2022-08-26] MEDS ORDERED: D10W 125 ML IV PRN (08:15)
[2022-08-26] MEDS ORDERED: D10W 250 ML IV ONE (08:30)
[2022-08-26] MEDS: carvediloL 3.125 MG TAB PO SCH ×2 (08:50→21:12)
[2022-08-26] MEDS: ROPINIROLE HCL 1 MG TAB PO SCH ×2 (08:50→21:11)
[2022-08-26] MEDS: GABAPENTIN 100 MG CAP PO SCH ×2 (08:50→21:11)
[2022-08-26] MEDS: SERTRALINE HCL 50 MG TAB PO SCH (08:50)
[2022-08-26] MEDS: FUROSEMIDE 20 MG/ 2ML VIAL IV SCH ×2 (08:50→17:19)
[2022-08-26] MEDS: CEFTRIAXONE 1,000 MG in NA CHLORIDE 0.9% 50 ML IVPB SCH (08:51)
[2022-08-26] MEDS: NEPRO SHAKE 237 ML CAN PO SCH ×2 (08:52→21:00)
[2022-08-26] MEDS ORDERED: NA CHLORIDE 0.9% 1,000 ML IV SCH (09:00)
[2022-08-26 09:26] LABS: Potassium 5.6 mEq/L (3.5-5.1)
[2022-08-26] MEDS ORDERED: LIDOCAINE 1% 20 ML MDV ONE (12:07)
--- NOTE | 2022-08-26 12:29 | P.PN ---
Subjective Date of Service: 08/26/22 Chief Complaint: Right-sided pleural effusion s/p thoracentesis Patient still has a significant pleural effusion on the right side despite thoracentesis still short of breath Review of Systems General: Weakness Respiratory: Shortness of Breath Physical Examination - Vital Signs Temperature: 97.1 F Blood Pressure: 117/66 Pulse: 54 Respirations: 14 Pulse Ox (%): 98 - Physical Exam General: Alert, In no apparent distress, Oriented x3 Respiratory: Diminished (Diminished on the right side) Cardiovascular: No edema, Regular rate/rhythm Assessment And Plan - Current Problems (Diagnosis) (1) Pleural effusion Current Visit: Yes Status: Acute Plan: Patient has a significant effusion on the right side s/p thoracentesis patient has a lymphocytic predominant effusion is the second time she underwent a thoracentesis with significant recurrence we will plan for a Pleurx catheter consulted Dr. Ewing cytology is negative for malignant cells after the Pleurx catheter is inserted and the fluid drained patient will need another CT scan to evaluate the pleural line and to look for any signs of malignancy discussed with the patient
[2022-08-26 12:30] LABS: Potassium 5.1 mEq/L (3.5-5.1)
--- NOTE | 2022-08-26 16:25 | P.PN ---
Subjective Date of Service: 08/26/22 Chief Complaint: Right-sided pleural effusion s/p thoracentesis POD # 3 from US-guided thoracentesis. She reports that her breathing is slightly better this morning. She denies any chest pain or palpitations. CT chest seems to show re-accumulation of pleural effusion. Plan for Pleur-X catheter placement with Dr. Chen later today. Review of Systems 10-point ROS is otherwise unremarkable Respiratory: Shortness of Breath Physical Examination - Vital Signs Temperature: 97.1 F Blood Pressure: 117/66 Pulse: 54 Respirations: 14 Pulse Ox (%): 98 Assessment And Plan - Plan - Physical Exam General: Alert, In no apparent distress, Oriented x3 HEENT: Atraumatic, Mucous membr. moist/pink, Sclerae nonicteric Neck: JVD not distended Respiratory: Diminished breath sounds in the posterior right lung base Cardiovascular: No edema, Regular rate/rhythm, No murmurs Gastrointestinal: Soft, Non-distended, Normoactive, No tenderness Musculoskeletal: No clubbing Integumentary: No rashes Neurological: Normal speech, Normal affect # Moderate Right Pleural Effusion s/p US-Guided Thoracentesis, now with reaccumulation of Pleural Effusion # Post-Thoracentesis Right-Sided Hydropneumothorax - Evaluation thus far: - Does not currently meet sepsis criteria - Procalcitonin = < 0.05 - Initially concerned for pneumonia, but now seems initial CT findings were due to a pleural effusion rather than pneumonia - Chest x-ray = "there is a large right pleural effusion. The heart is moderately enlarged. No displaced fractures. Right venous catheter tip in the SVC." - CT abdomen/pelvis = "moderate right pleural effusion with opacity in the right lung base likely infiltrate/pneumonia. Mild ascites. Air in the urinary bladder could indicate urinary tract infection or recent instrumentation" - Chest x-ray (08/24) = "right-sided hydropneumothorax most likely secondary to an ex vacuo pneumothorax and partially trapped lung. This could be related to endobronchial occlusion (such as from tumor) or visceral pleural thickening. The latter is probably more likely given the long-standing effusion." - Chest x-ray (08/25) = "moderate increase in size of right pleural effusion since comparative study from yesterday. The amount of air in the right pleural space appears diminished." - CT chest (08/25) = "large right pleural effusion is noted without pneumothorax.This is likely related to be accumulation of fluid after thoracentesis." - Management plan: - Consulted Pulmonology and spoke with Dr. Brennan -recommendations appreciated - S/P thoracentesis - Spoke with Dr. Diaz (Radiology), who recommended a General Surgery consult for chest tube placement. He stated if chest tube does not result in lung re- expansion, she may require transfer for pleurodesis/decortication - Consulted General Surgery and spoke with Dr. Lee - recommendations appreciated - He is concerned that she may have lung entrapment syndrome and recommends that she be evaluated by a thoracic surgeon - Surgeons switched as she may require a PleurX catheter and Dr. Lee does not perform this procedure - Dr. Chen consulted and plans to place PleurX catheter today - Consulted Respiratory Therapy - Supplemental oxygen to maintain SpO2 > 92% - Encouraged incentive spirometry # Diarrhea with Recent Antibiotic Exposure - resolved (possibly antibiotic- induced diarrhea?) - Clostridium difficile stool testing cancelled as diarrhea has resolved - Influenza, Rotavirus negative - Supportive care # Generalized Weakness due to above - CT head = "No acute intracranial abnormality." - PT consulted # Hyperglycemia in Type II Diabetes Mellitus - Correction scale insulin # End-Stage Renal Disease on iHD - Nephrology consulted - recommendations appreciated - Urinalysis = 3+ glucose, 2+ blood, 1120 RBC, > 20 hyaline casts, 3+ protein - Monitor urine output - Renally dose medications # Hypothyroidism - TSH 6.78, Free T4 0.91 - Continue home levothyroxine # Hypertension - Continue home carvedilol # Restless Leg Syndrome - Continue home gabapentin, ropinirole Mateo Rodriguez M.D.
[2022-08-26] MEDS: TEMAZEPAM 15 MG CAP PO SCH (21:10)
[2022-08-27] MEDS: LEVOTHYROXINE SOD 0.05 MG TABLET PO SCH (05:16)
[2022-08-27 06:07] LABS: Absolute Lymphocytes (CBC) 1.2 K/uL (0.7-4.9); Hematocrit 35.1 % (36.0-45.0); Lymphocytes % 34.3 % (15.3-44.8); MCV 91.2 fL (80-100); MPV 8.1 fL (7.6-11.3); RBC Red Blood Cell Count 3.85 M/uL (3.86-4.86)
[2022-08-27 06:22] LABS: Magnesium 2.2 mg/dL (1.6-2.4); Phosphorus 5.4 mg/dL (2.5-4.9); Potassium 5.4 mEq/L (3.5-5.1)
[2022-08-27] MEDS: INSULIN -REGULAR HUMAN 50 UNIT/0.5 ML ML SQ SCH ×4 (07:30→21:00)
--- NOTE | 2022-08-27 08:03 | RAD REPORT ---
EXAM DESCRIPTION: RADChest Single View08/27/2022 4:17 am CLINICAL HISTORY: pleural effusion COMPARISON: Chest Single View dated 08/25/2022; Chest Single View dated 08/24/2022; Chest Single View dated 08/23/2022; Chest Single View dated 08/21/2022 TECHNIQUE: Portable AP view of the chest. FINDINGS: Moderate right pleural effusion with underlying hazy airspace opacification. Trace left ef fusion, stable. No appreciable pneumothorax. Right IJ dialysis catheter is unchanged in position. Sta ble Cardiomegaly. The mediastinal contours are unremarkable. IMPRESSION: Stable findings, as above.
[2022-08-27] MEDS: SERTRALINE HCL 50 MG TAB PO SCH (08:55)
[2022-08-27] MEDS: NEPRO SHAKE 237 ML CAN PO SCH ×2 (08:55→21:00)
[2022-08-27] MEDS: ROPINIROLE HCL 1 MG TAB PO SCH ×2 (08:55→21:20)
[2022-08-27] MEDS: GABAPENTIN 100 MG CAP PO SCH ×2 (08:55→21:19)
[2022-08-27] MEDS: carvediloL 3.125 MG TAB PO SCH ×2 (08:55→21:00)
[2022-08-27] MEDS: CEFTRIAXONE 1,000 MG in NA CHLORIDE 0.9% 50 ML IVPB SCH (08:59)
[2022-08-27] MEDS: FUROSEMIDE 20 MG/ 2ML VIAL IV SCH ×2 (08:59→16:39)
[2022-08-27] MEDS ORDERED: NA CHLORIDE 0.9% 500 ML ONE (11:14)
[2022-08-27] MEDS ORDERED: propofoL 200 MG/20 ML VIAL IV ONE (11:27)
[2022-08-27] MEDS ORDERED: LIDOCAINE 2% MPF 5 ML VIAL ONE (11:28)
[2022-08-27] MEDS ORDERED: ONDANSETRON 4 MG/2 ML VIAL ONE (11:28)
[2022-08-27] MEDS ORDERED: MIDAZOLAM HCL 2 MG/2 ML INJ ONE (11:28)
[2022-08-27] MEDS ORDERED: FENTANYL CITR 100 MCG/2 ML ONE (11:28)
[2022-08-27] MEDS ORDERED: LIDOCAINE 1% 20 ML MDV ONE (11:29)
[2022-08-27] MEDS ORDERED: LIDOCAINE 1% MPF 30 ML VIAL ONE (11:29)
[2022-08-27] MEDS ORDERED: EPHEDRINE SULF 50 MG/ML VIAL ONE (11:58)
--- NOTE | 2022-08-27 12:12 | P.OP ---
Preoperative diagnosis: Recurrent RIGHT Pleural Effusion Postoperative diagnosis: Recurrent RIGHT Pleural Effusion Primary procedure: Placement of RIGHT PleurX thoracic tunnelled catheter Anesthesia: MAC + Local Estimated blood loss: <1cc Specimen: 1 liter straw colored fluid Findings: 1 liter straw colored fluid Complications: None Drain(s): Other (PleurX catheter) Transferred to: Recovery Room Condition: Good
--- NOTE | 2022-08-27 12:48 | RAD REPORT ---
EXAM DESCRIPTION: RAD - Chest Single View - 08/27/2022 12:36 pm CLINICAL HISTORY: Status Post Thorocentesis Chest pain. COMPARISON: Chest Single View dated 08/27/2022; Chest Single View dated 08/25/2022; Chest Single View dated 08/24/2022; Chest Single View dated 08/23/2022 FINDINGS: Portable technique limits examination quality. Right-sided pleural effusion has moderately decreased in size. No pneumothorax is evident. Small bore right-sided chest tube has been placed directed cephalad and medially. Small to moderate right pleur al effusion persists. The heart is moderately enlarged. Right-sided venous catheter has tip in the SV C. IMPRESSION: Significant decrease in right pleural effusion size without evidence of pneumothorax. A right-sided chest tube has been placed.
--- NOTE | 2022-08-27 13:05 | CON ---
Date of Consultation: 08/26/2022 History Of Present Illness: The patient is a 56-year-old female with a history of diabetes; chronic diastolic CHF; hypertension; end-stage renal disease on hemodialysis Friday, Friday, Friday; weakn ess; diarrhea; shortness of breath; chills who has not had dialysis in approximately 2 weeks. She boykin d an acute renal injury reportedly improving and has not required dialysis in several weeks by her re port. She continues to have a right hemodialysis catheter in place. She presented with shortness of breath, and she had a large right pleural effusion. A thoracentesis was performed. However, she co ntinued to have reaccumulation of fluid in the right thoracic cavity, and as such, I am consulted to see the patient regarding placement of a PleurX catheter. The patient has been treated medically for her multiple medical problems while being in the hospital and continues to have shortness of breath and reaccumulation of fluid. Allergies: CODEINE, TRAMADOL, RITALIN. Home Medications: Include gabapentin, Levemir, Ozempic, Pepcid, Glucerna, acidophilus, aspirin, ator vastatin, Plavix, folic acid. Past Medical History: Includes diabetes on insulin dependence; neuropathy; end-stage renal disease o n HD Friday, Friday, Friday; chronic diastolic CHF; hypertension. Past Surgical History: Includes cholecystectomy, hysterectomy, appendectomy, , placement of right internal jugular tunneled hemodialysis catheter. The patient is disabled, lives at home with her daughter. Family History: Significant for hypertension and cancer. Social History: She denies smoking, alcohol, recreational drug use. Review of Systems: Ten-point review of systems other than HPI, she admits to chills, weakness, fatigue, cough, shortness of breath, abdominal pain, and occasional diarrhea. Physical Examination: General: At the time of my examination, she is awake, alert, and oriented. She is thin and frail in appearance. Psychiatric: Appropriate, conversive. HEENT: Normocephalic. Sclerae anicteric. Mucous membranes are moist. Oropharynx is clear. Neck: Supple without JVD. Chest: Normal expansion and excursion. Cardiovascular: Regular rate and rhythm. Pulmonary: Decreased breath sounds bilaterally with crackles and rales bilaterally. Decreased breat h sounds on the right compared to left. She has a right chest hemodialysis catheter present which is wrapped appropriately. GI: Soft. Extremities: No clubbing, cyanosis, or edema. Skin: Warm and dry. Laboratory Data: Revealed a white blood cell count of 3.2, hemoglobin 11.2, hematocrit 35.9, platele t count was 202. Her PT 41, INR 1.2. Sodium 124, potassium 5.1, chloride 105, carbon dioxide 27, BU N 61, creatinine is 1.65, glucose is 118. Her calcium is 8.0. She has imaging performed, which incl uded a CT scan of the abdomen and pelvis performed on 08/25/2022 after her thoracentesis, which was o fficially read as large right pleural effusion noted without pneumothorax, likely related to accumula tion of fluid after thoracentesis. Assessment And Plan: This is a 56-year-old female who presents with reaccumulation of fluid on the r ight thoracic cavity. 1.Medical management. 2.I have explained risks, benefits, and alternatives of placement of a right thoracic tunneled solo ter-PleurX catheter including but not limited to bleeding, infection, damage to surrounding tissue, i njury to heart, lungs, great blood vessels, need for further operation procedures. The patient agree d to proceed as indicated. I have also discussed removal of her tunneled hemodialysis catheter to fu ture date as Nephrology currently wants to keep her catheter several days longer to ensure the patien t is not in need of dialysis. As such, I have discussed the risks, benefits, and alternatives of rem oval of a tunneled hemodialysis catheter including but not limited to bleeding, infection, damage to surrounding tissue and need for further operative procedures. We will delay at this time, but will plan for removal prior to discharge per the payer specialist recommenda tions. TK/MODL Voice ID: [id number] Report ID: [id number]
[2022-08-27 13:36] LABS: Appearance CLEAR (CLEAR); Body Fluid Source PLEURAL; Color of fluid Yellow (COLORLESS)
[2022-08-27 13:37] LABS: Body Fluid WBC 306 /mm^3
--- NOTE | 2022-08-27 14:00 | OP ---
Date of Procedure: 08/27/2022 Surgeon: Luis Antonio Chen MD, Preoperative Diagnosis: Recurrent right pleural effusion. Postoperative Diagnosis: Recurrent right pleural effusion. Procedure Performed: Placement of right PleurX tunneled thoracic catheter. Anesthesia: MAC plus local 1% lidocaine without epinephrine. Estimated Blood Loss: Less than 1 cc. Specimen: 1 L of straw-colored fluid. Findings: 1 L of straw-colored fluid. Complications: None. Drains: PleurX catheter placed. Disposition: Patient transferred to recovery room in good condition. Procedure In Detail: After informed consent was obtained, patient was brought to the operating room, prepped and draped in usual sterile fashion. After adequate anesthesia was achieved, I anesthetized an area of the fifth and sixth intercostal space on the right mid anterior axillary line down to sub cutaneous tissues. I then anesthetized the entire tract leading anterior inferior from the proposed insertion site. I used a finder needle at this point to cannulate going over the rib, the thoracic c avity and straw-colored fluid was immediately encountered. At this point, I inserted a wire into the thoracic cavity pointing inferior-posterior as there appeared to be where the majority of the fluid was on the previous CT imaging. At this point, I made a izabella incision overlying the insertion site o n the proposed exit site. I anesthetized the tract once again, and passed the catheter through this site, I then performed sequential dilatation using sequential dilators over the wire using Seldinger technique. At this point, the introducer sheath was introduced also aiming posteriorly. At this poi nt, bright straw-colored fluid with no blood component was appreciated coming through the exit site. I then inserted the PleurX catheter into the thoracic cavity at this point and hooked it up to a Vac utainer bottle. Immediately, 1 L of straw-colored fluid was encountered. I then cleansed the area g ently and closed the insertion site using an interrupted 3-0 silk suture and a sterile dressing place d over top. The patient tolerated the procedure well without evidence of complication and transferre d to PACU in good condition. All counts were correct at the end of the case. TK/MODL Voice ID: [id number] Report ID: [id number]
--- NOTE | 2022-08-27 15:49 | P.PN ---
Subjective Date of Service: 08/27/22 Chief Complaint: Right-sided pleural effusion s/p thoracentesis POD # 4 from US-guided thoracentesis. She reports no change in her breathing today. She denies any chest pain or palpitations. Unable to schedule Pleur-X placement yesterday. Plan for Pleur-X catheter placement with Dr. Chen today. Review of Systems 10-point ROS is otherwise unremarkable Respiratory: Shortness of Breath Physical Examination - Vital Signs Temperature: 96.8 F Blood Pressure: 116/70 Pulse: 43 Respirations: 18 Pulse Ox (%): 99 - Studies Microbiology Data (last 24 hrs): 08/21/22 21:45 Blood - Blood Aerobic Blood Culture - Final No growth in 5 days. 08/21/22 21:45 Blood - Blood Anaerobic Blood Culture - Final No growth in 5 days. 08/21/22 21:25 Blood - Blood Aerobic Blood Culture - Final No growth in 5 days. 08/21/22 21:25 Blood - Blood Anaerobic Blood Culture - Final No growth in 5 days. Assessment And Plan - Plan - Physical Exam General: Alert, In no apparent distress, Oriented x3 HEENT: Atraumatic, Mucous membr. moist/pink, Sclerae nonicteric Neck: JVD not distended Respiratory: Diminished breath sounds in the posterior right lung base Cardiovascular: No edema, Regular rate/rhythm, No murmurs Gastrointestinal: Soft, Non-distended, Normoactive, No tenderness Musculoskeletal: No clubbing Integumentary: No rashes Neurological: Normal speech, Normal affect # Moderate Right Pleural Effusion s/p US-Guided Thoracentesis, now with reaccumulation of Pleural Effusion # Post-Thoracentesis Right-Sided Hydropneumothorax - Evaluation thus far: - Does not currently meet sepsis criteria - Procalcitonin = < 0.05 - Initially concerned for pneumonia, but now seems initial CT findings were due to a pleural effusion rather than pneumonia - Chest x-ray = "there is a large right pleural effusion. The heart is moderately enlarged. No displaced fractures. Right venous catheter tip in the SVC." - CT abdomen/pelvis = "moderate right pleural effusion with opacity in the right lung base likely infiltrate/pneumonia. Mild ascites. Air in the urinary bladder could indicate urinary tract infection or recent instrumentation" - Chest x-ray (08/24) = "right-sided hydropneumothorax most likely secondary to an ex vacuo pneumothorax and partially trapped lung. This could be related to endobronchial occlusion (such as from tumor) or visceral pleural thickening. The latter is probably more likely given the long-standing effusion." - Chest x-ray (08/25) = "moderate increase in size of right pleural effusion since comparative study from yesterday. The amount of air in the right pleural space appears diminished." - CT chest (08/25) = "large right pleural effusion is noted without pneumothorax.This is likely related to be accumulation of fluid after thoracentesis." - Management plan: - Consulted Pulmonology and spoke with Dr. Brennan -recommendations appreciated - S/P thoracentesis - Spoke with Dr. Diaz (Radiology), who recommended a General Surgery consult for chest tube placement. He stated if chest tube does not result in lung re- expansion, she may require transfer for pleurodesis/decortication - Consulted General Surgery and initially evaluated by Dr. Lee - recommendations appreciated - He is concerned that she may have lung entrapment syndrome and recommends that she be evaluated by a thoracic surgeon - Surgeons were switched as she may require a PleurX catheter and Dr. Lee does not perform this procedure - Dr. Chen consulted and plans to place PleurX catheter today - Consulted Respiratory Therapy - Supplemental oxygen to maintain SpO2 > 92% - Encouraged incentive spirometry # Diarrhea with Recent Antibiotic Exposure - resolved (possibly antibiotic- induced diarrhea?) - Clostridium difficile stool testing cancelled as diarrhea has resolved - Influenza, Rotavirus negative - Supportive care # Generalized Weakness due to above - CT head = "No acute intracranial abnormality." - PT consulted # Hyperglycemia in Type II Diabetes Mellitus - Correction scale insulin # End-Stage Renal Disease on iHD - Nephrology consulted - recommendations appreciated - Urinalysis = 3+ glucose, 2+ blood, 1120 RBC, > 20 hyaline casts, 3+ protein - Monitor urine output - Renally dose medications # Hypothyroidism - TSH 6.78, Free T4 0.91 - Continue home levothyroxine # Hypertension - Continue home carvedilol # Restless Leg Syndrome - Continue home gabapentin, ropinirole Mateo Rodriguez M.D.
[2022-08-27] MEDS: ACETAMINOPHEN 325 MG TABLET PO PRN (17:46)
[2022-08-27] MEDS: HEPARIN 5000 UNIT/ML 1 ML VIAL SQ SCH (21:20)
[2022-08-27] MEDS: TEMAZEPAM 15 MG CAP PO SCH (21:20)
[2022-08-28] MEDS ORDERED: HYDROCODONE/APAP 7.5/325 MG TAB PO PRN (04:18)
[2022-08-28] MEDS: LEVOTHYROXINE SOD 0.05 MG TABLET PO SCH (06:16)
[2022-08-28 06:23] LABS: Absolute Lymphocytes (CBC) 0.4 K/uL (0.7-4.9); Lymphocytes % 12.7 % (15.3-44.8); MCV 91.6 fL (80-100); MPV 8.4 fL (7.6-11.3); RBC Red Blood Cell Count 4.04 M/uL (3.86-4.86)
[2022-08-28 06:45] LABS: Magnesium 2.2 mg/dL (1.6-2.4); Phosphorus 4.6 mg/dL (2.5-4.9); Potassium 5.6 mEq/L (3.5-5.1)
[2022-08-28] MEDS: ROPINIROLE HCL 1 MG TAB PO SCH ×2 (08:35→20:34)
[2022-08-28] MEDS: FUROSEMIDE 20 MG/ 2ML VIAL IV SCH ×2 (08:35→17:00)
[2022-08-28] MEDS: SERTRALINE HCL 50 MG TAB PO SCH (08:35)
[2022-08-28] MEDS: CEFTRIAXONE 1,000 MG in NA CHLORIDE 0.9% 50 ML IVPB SCH (08:35)
[2022-08-28] MEDS: HEPARIN 5000 UNIT/ML 1 ML VIAL SQ SCH ×2 (08:35→20:33)
[2022-08-28] MEDS: INSULIN -REGULAR HUMAN 50 UNIT/0.5 ML ML SQ SCH ×4 (08:36→20:34)
[2022-08-28] MEDS: GABAPENTIN 100 MG CAP PO SCH ×2 (08:36→20:34)
[2022-08-28] MEDS: carvediloL 3.125 MG TAB PO SCH ×2 (08:36→20:33)
[2022-08-28] MEDS: NEPRO SHAKE 237 ML CAN PO SCH ×2 (08:36→20:34)
[2022-08-28 12:14] LABS: C.diff Antigen/Toxin Ag neg : Tox neg (NEG : NEG)
[2022-08-28] MEDS ORDERED: MANNITOL 25% 12.5 GM/50 ML VIAL IV PRN (12:38)
[2022-08-28] MEDS ORDERED: D10W 250 ML IV ONE (17:04)
--- NOTE | 2022-08-28 17:42 | P.PN ---
Subjective Date of Service: 08/28/22 Chief Complaint: Right-sided pleural effusion s/p thoracentesis POD # 1 from placement of right PleurX thoracic tunnelled catheter. She tolerated the procedure well, without any complications. However, she reports that her breathing remains unchanged. She denies any chest pain or palpitations. Review of Systems 10-point ROS is otherwise unremarkable Respiratory: Shortness of Breath Physical Examination - Vital Signs Temperature: 98.3 F Blood Pressure: 128/93 Pulse: 61 Respirations: 16 Pulse Ox (%): 93 Assessment And Plan - Plan - Physical Exam General: Alert, In no apparent distress, Oriented x3 HEENT: Atraumatic, Mucous membr. moist/pink, Sclerae nonicteric Neck: JVD not distended Respiratory: Diminished breath sounds in the posterior right lung base, right PleurX catheter in place Cardiovascular: No edema, Regular rate/rhythm, No murmurs Gastrointestinal: Soft, Non-distended, Normoactive, No tenderness Musculoskeletal: No clubbing Integumentary: No rashes Neurological: Normal speech, Normal affect # Moderate Right Pleural Effusion s/p US-Guided Thoracentesis, now with reaccumulation of Pleural Effusion # Post-Thoracentesis Right-Sided Hydropneumothorax - Evaluation thus far: - Does not currently meet sepsis criteria - Procalcitonin = < 0.05 - Initially concerned for pneumonia, but now seems initial CT findings were due to a pleural effusion rather than pneumonia - Chest x-ray = "there is a large right pleural effusion. The heart is moderately enlarged. No displaced fractures. Right venous catheter tip in the SVC." - CT abdomen/pelvis = "moderate right pleural effusion with opacity in the right lung base likely infiltrate/pneumonia. Mild ascites. Air in the urinary bladder could indicate urinary tract infection or recent instrumentation" - Chest x-ray (08/24) = "right-sided hydropneumothorax most likely secondary to an ex vacuo pneumothorax and partially trapped lung. This could be related to endobronchial occlusion (such as from tumor) or visceral pleural thickening. The latter is probably more likely given the long-standing effusion." - Chest x-ray (08/25) = "moderate increase in size of right pleural effusion since comparative study from yesterday. The amount of air in the right pleural space appears diminished." - CT chest (08/25) = "large right pleural effusion is noted without pneumothorax.This is likely related to be accumulation of fluid after thoracentesis." - Management plan: - Consulted Pulmonology and spoke with Dr. Brennan -recommendations appreciated - S/P thoracentesis - Spoke with Dr. Diaz (Radiology), who recommended a General Surgery consult for chest tube placement. He stated if chest tube does not result in lung re- expansion, she may require transfer for pleurodesis/decortication - Consulted General Surgery and initially evaluated by Dr. Lee - recommendations appreciated - He is concerned that she may have lung entrapment syndrome and recommends that she be evaluated by a thoracic surgeon - Surgeons were switched as she may require a PleurX catheter and Dr. Lee does not perform this procedure - Dr. Chen consulted and placed PleurX catheter on 08/27 - Consulted Respiratory Therapy - Supplemental oxygen to maintain SpO2 > 92% - Encouraged incentive spirometry # Diarrhea with Recent Antibiotic Exposure - resolved (possibly antibiotic- induced diarrhea?) - Clostridium difficile stool testing cancelled as diarrhea has resolved - Influenza, Rotavirus negative - Supportive care # Generalized Weakness due to above - CT head = "No acute intracranial abnormality." - PT consulted # Hyperglycemia in Type II Diabetes Mellitus - Correction scale insulin # End-Stage Renal Disease on iHD - Nephrology consulted - recommendations appreciated - Urinalysis = 3+ glucose, 2+ blood, 1120 RBC, > 20 hyaline casts, 3+ protein - Monitor urine output - Renally dose medications # Hypothyroidism - TSH 6.78, Free T4 0.91 - Continue home levothyroxine # Hypertension - Continue home carvedilol # Restless Leg Syndrome - Continue home gabapentin, ropinirole Mateo Rodriguez M.D.
[2022-08-28] MEDS ORDERED: HYDRALAZINE HCL 20 MG/ML VIAL IV PRN (19:28)
--- NOTE | 2022-08-28 19:35 | RAD REPORT ---
[facility] DES[facility] 6[facility]39 pm CLINICAL HISTORY: SOB COMPARISON: Chest Single View dated 08/27/2022; Chest Single View dated 08/27/2022; Chest Single View dated 08/25/2022; Chest Single View dated 08/24/2022 TECHNIQUE: Portable AP view of the chest. FINDINGS: Right IJ dialysis catheter is unchanged in position. Cardiomegaly and bilateral layering e ffusions larger on the left, with underlying airspace opacification. Interstitial prominence. Finding s are stable. No pneumothorax. Mediastinal contours are unchanged. IMPRESSION: Stable findings suggestive of pulmonary edema
[2022-08-28 19:48] LABS: Potassium 4.3 mEq/L (3.5-5.1)
[2022-08-28 19:50] LABS: Arterial Blood Carboxyhemoglob 1.6 % (0-1.5); Blood O2 Saturation 93.8 % (92-98.5)
[2022-08-28] MEDS: TEMAZEPAM 15 MG CAP PO SCH (20:34)
--- NOTE | 2022-08-28 22:23 | RAD REPORT ---
EXAM DESCRIPTION: CT - Head Brain Wo Cont - 08/28/2022 10:07 pm CLINICAL HISTORY: AMS COMPARISON: Head Brain Wo Cont dated 08/21/2022; Head Brain Wo Cont dated 09/07/2020 TECHNIQUE: Noncontrast head CT images ad were obtained without IV contrast. Multiplanar reformats we re generated and reviewed. All CT scans are performed using dose optimization technique as appropriate and may include automated exposure control or mA/KV adjustment according to patient size. FINDINGS: No intracranial hemorrhage, mass, or edema. Midline structures are unremarkable. Normal ventricular caliber for age. Williamson-white matter differentiation is preserved, without evidence of acute infarct. No abnormal extra- axial fluid collections. Mastoid air cells and visualized portions of the paranasal sinuses are clear. No acute bony findings. IMPRESSION: No evidence of an acute intracranial process.
[2022-08-29 04:51] LABS: Potassium 4.6 mEq/L (3.5-5.1)
[2022-08-29] MEDS: LEVOTHYROXINE SOD 0.05 MG TABLET PO SCH (06:18)
[2022-08-29] MEDS: INSULIN -REGULAR HUMAN 50 UNIT/0.5 ML ML SQ SCH ×4 (07:30→21:00)
[2022-08-29] MEDS: FUROSEMIDE 20 MG/ 2ML VIAL IV SCH (08:12)
[2022-08-29] MEDS: HEPARIN 5000 UNIT/ML 1 ML VIAL SQ SCH ×2 (08:12→21:37)
[2022-08-29] MEDS: CEFTRIAXONE 1,000 MG in NA CHLORIDE 0.9% 50 ML IVPB SCH (08:12)
[2022-08-29] MEDS: carvediloL 3.125 MG TAB PO SCH ×2 (08:19→21:37)
[2022-08-29] MEDS: NEPRO SHAKE 237 ML CAN PO SCH ×2 (08:20→21:00)
[2022-08-29] MEDS: ROPINIROLE HCL 1 MG TAB PO SCH (08:20)
[2022-08-29] MEDS: SERTRALINE HCL 50 MG TAB PO SCH (08:20)
[2022-08-29] MEDS: GABAPENTIN 100 MG CAP PO SCH (08:20)
--- NOTE | 2022-08-29 12:13 | P.PN ---
Subjective Date of Service: 08/29/22 Chief Complaint: Altered mental status it is post right-sided Pleurx catheter Has been an acute change in her status patient is not eating and drinking recently had diarrhea low-grade fever Review of Systems is unable to be obtained Physical Examination - Vital Signs Temperature: 97.7 F Blood Pressure: 146/76 Pulse: 56 Respirations: 16 Pulse Ox (%): 98 - Physical Exam General: Alert, Cooperative Respiratory: Clear to auscultation bilaterally, Diminished Cardiovascular: No edema, Regular rate/rhythm, Normal S1 S2 Assessment And Plan - Current Problems (Diagnosis) (1) Pleural effusion Current Visit: Yes Status: Acute Plan: Recurrent right-sided pleural effusion s/p Pleurx catheter recent diarrhea mild fever may be reaction to antibiotics which have not been discontinued no evidence of a pleural infection Gram stain is negative patient's white count is normal cultures are negative doubt pleural fluids infection chemistries are still pending repeat cytology is negative patient is on hemodialysis DC IV Lasix DC Rocephin physical therapy
--- NOTE | 2022-08-29 15:23 | P.PN ---
Subjective Date of Service: 08/29/22 Chief Complaint: Altered mental status it is post right-sided Pleurx catheter POD # 2 from placement of right PleurX thoracic tunnelled catheter. She appeared to be slightly groggy yesterday, but CT head and CXR were reassuring. She remains alert and oriented x 3 to person, place, and time. PleurX continues to have significant output. Spoke with Dr. Chen, who feels that she may benefit from some albumin given her significant PleurX output. She denies any chest pain or palpitations. Review of Systems 10-point ROS is otherwise unremarkable Respiratory: Shortness of Breath (mild) Physical Examination - Vital Signs Temperature: 97.7 F Blood Pressure: 146/76 Pulse: 56 Respirations: 16 Pulse Ox (%): 98 Assessment And Plan - Plan - Physical Exam General: Alert, In no apparent distress, Oriented x3 HEENT: Atraumatic, Mucous membr. moist/pink, Sclerae nonicteric Neck: JVD not distended Respiratory: Diminished breath sounds in the posterior right lung base, right PleurX catheter in place Cardiovascular: No edema, Regular rate/rhythm, No murmurs Gastrointestinal: Soft, Non-distended, Normoactive, No tenderness Musculoskeletal: No clubbing Integumentary: No rashes Neurological: Normal speech, Normal affect # Moderate Right Pleural Effusion s/p US-Guided Thoracentesis, now with reaccumulation of Pleural Effusion # Post-Thoracentesis Right-Sided Hydropneumothorax - Evaluation thus far: - Does not currently meet sepsis criteria - Procalcitonin = < 0.05 - Initially concerned for pneumonia, but now seems initial CT findings were due to a pleural effusion rather than pneumonia - Chest x-ray = "there is a large right pleural effusion. The heart is moderately enlarged. No displaced fractures. Right venous catheter tip in the SVC." - CT abdomen/pelvis = "moderate right pleural effusion with opacity in the right lung base likely infiltrate/pneumonia. Mild ascites. Air in the urinary bladder could indicate urinary tract infection or recent instrumentation" - Chest x-ray (08/24) = "right-sided hydropneumothorax most likely secondary to an ex vacuo pneumothorax and partially trapped lung. This could be related to endobronchial occlusion (such as from tumor) or visceral pleural thickening. The latter is probably more likely given the long-standing effusion." - Chest x-ray (08/25) = "moderate increase in size of right pleural effusion since comparative study from yesterday. The amount of air in the right pleural space appears diminished." - CT chest (08/25) = "large right pleural effusion is noted without pneumothorax.This is likely related to be accumulation of fluid after thoracentesis." - Management plan: - Consulted Pulmonology and spoke with Dr. Brennan -recommendations appreciated - S/P thoracentesis - Spoke with Dr. Diaz (Radiology), who recommended a General Surgery consult for chest tube placement. He stated if chest tube does not result in lung re- expansion, she may require transfer for pleurodesis/decortication - Consulted General Surgery and initially evaluated by Dr. Lee - recommendations appreciated - He is concerned that she may have lung entrapment syndrome and recommends that she be evaluated by a thoracic surgeon - Surgeons were switched as she may require a PleurX catheter and Dr. Lee does not perform this procedure - Dr. Chen consulted and placed PleurX catheter on 08/27 - She has had significant output from PleurX catheter since its placement. Dr. Chen recommend trying albumin to see if this helps her fatigue. - In regards to discharge, he states that his office will arrange the Home Health - Pleural fluid studies are pending, but cytology is negative - Consulted Respiratory Therapy - Supplemental oxygen to maintain SpO2 > 92% - Encouraged incentive spirometry # Diarrhea with Recent Antibiotic Exposure - resolved (possibly antibiotic- induced diarrhea?) - Clostridium difficile stool testing cancelled as diarrhea has resolved - Influenza, Rotavirus negative - Supportive care # Generalized Weakness due to above - CT head = "No acute intracranial abnormality." - PT consulted # Hyperglycemia in Type II Diabetes Mellitus - Correction scale insulin # End-Stage Renal Disease on iHD - Nephrology consulted - recommendations appreciated - Urinalysis = 3+ glucose, 2+ blood, 1120 RBC, > 20 hyaline casts, 3+ protein - Monitor urine output - Renally dose medications # Hypothyroidism - TSH 6.78, Free T4 0.91 - Continue home levothyroxine # Hypertension - Continue home carvedilol # Restless Leg Syndrome - Continue home gabapentin, ropinirole Mateo Rodriguez M.D.
[2022-08-29] MEDS ORDERED: ALBUMIN HUMAN 25% 50 ML IV ONE (16:00)
[2022-08-29 20:14] LABS: CHOLESTEROL, PLEURAL FLUID 29 mg/dL; LD, PLEURAL FLUID 91 U/L; TOTAL PROTEIN, PLEURAL FLUID <3.0 g/dL
[2022-08-30 03:44] LABS: Absolute Lymphocytes (CBC) 1.4 K/uL (0.7-4.9); Hematocrit 36.8 % (36.0-45.0); Lymphocytes % 32.3 % (15.3-44.8); MCV 90.3 fL (80-100); RBC Red Blood Cell Count 4.08 M/uL (3.86-4.86)
[2022-08-30 04:08] LABS: Potassium 4.6 mEq/L (3.5-5.1)
[2022-08-30] MEDS: LEVOTHYROXINE SOD 0.05 MG TABLET PO SCH (06:32)
[2022-08-30] MEDS: INSULIN -REGULAR HUMAN 50 UNIT/0.5 ML ML SQ SCH ×4 (07:30→20:50)
[2022-08-30] MEDS: carvediloL 3.125 MG TAB PO SCH ×2 (08:41→20:51)
[2022-08-30] MEDS: HEPARIN 5000 UNIT/ML 1 ML VIAL SQ SCH ×2 (08:42→20:51)
[2022-08-30] MEDS: SERTRALINE HCL 50 MG TAB PO SCH (08:42)
[2022-08-30] MEDS: NEPRO SHAKE 237 ML CAN PO SCH (08:45)
--- NOTE | 2022-08-30 10:21 | RAD REPORT ---
EXAM DESCRIPTION: RADChest Single View08/30/2022 9:55 am CLINICAL HISTORY: Pleural effusion COMPARISON: Chest Single View dated 08/28/2022; Chest Single View dated 08/27/2022; Chest Single View dated 08/27/2022; Chest Single View dated 08/25/2022 TECHNIQUE: Portable AP view of the chest. FINDINGS: Right basal thoracostomy tube and right IJ dialysis catheter are unchanged in position. St able cardiomegaly, perihilar fluffy opacities with interstitial prominence, and layering bilateral ef fusions. No pneumothorax. The mediastinal contours are unremarkable. IMPRESSION: Stable findings suggestive of pulmonary edema. No significant interval change.
[2022-08-30 20:45] LABS: CHOLESTEROL, PLEURAL FLUID 22 mg/dL; LD, PLEURAL FLUID 106 U/L; TOTAL PROTEIN, PLEURAL FLUID <3.0 g/dL
[2022-08-30] MEDS: ACETAMINOPHEN 325 MG TABLET PO PRN (21:08)
[2022-08-31 06:41] LABS: Absolute Lymphocytes (CBC) 1.4 K/uL (0.7-4.9); Hematocrit 35.8 % (36.0-45.0); Lymphocytes % 30.3 % (15.3-44.8); MCV 89.4 fL (80-100); MPV 7.8 fL (7.6-11.3)
[2022-08-31] MEDS: LEVOTHYROXINE SOD 0.05 MG TABLET PO SCH (06:45)
[2022-08-31 06:54] VITALS: BMI 16.1
[2022-08-31 06:59] LABS: Albumin 2.5 g/dL (3.4-5.0); Bilirubin Total 0.6 mg/dL (0.2-1.0); Potassium 4.2 mEq/L (3.5-5.1); Protein, Total 6.3 g/dL (6.4-8.2)
[2022-08-31] MEDS: INSULIN -REGULAR HUMAN 50 UNIT/0.5 ML ML SQ SCH ×2 (07:30→11:30)
--- NOTE | 2022-08-31 08:22 | RAD REPORT ---
EXAM DESCRIPTION: Marco A Single View08/31/2022 5:45 am CLINICAL HISTORY: Shortness of breath COMPARISON: August 30, 2022 FINDINGS: Right chest tube in position. Small to moderate right pleural effusion with basilar atelectasis Bilateral interstitial lung opacities are unchanged. Cardiomegaly. Central venous line place IMPRESSION: Bilateral interstitial lung opacities without significant change probably pulmonary bridget a
[2022-08-31] MEDS: carvediloL 3.125 MG TAB PO SCH (08:24)
[2022-08-31] MEDS: SERTRALINE HCL 50 MG TAB PO SCH (08:24)
[2022-08-31] MEDS: HEPARIN 5000 UNIT/ML 1 ML VIAL SQ SCH (08:54)
[2022-08-31 10:07] VITALS: O2SAT 92
[2022-08-31 12:09] VITALS: BP 163/77; TEMP 97.3
== END 2022-08-31 13:30 | disposition home health service (06) | DRG 193 ==
LOC: ER 17:52 → ERHOLD 22:19 → 4TH 23:57
PROVIDERS: ADMIT Internal Medicine; ATTEND Hospitalist
PROC: 0W9930Z Drainage of Right Pleural Cavity with Drainage Device, Percutaneous Approach (ICD-10-PCS; principal; 2022-08-22)
PROC: 0JH63XZ Insertion of Tunneled Vascular Access Device into Chest Subcutaneous Tissue and Fascia, Percutaneous Approach (ICD-10-PCS; 2022-08-27)
PROC: 02HV33Z Insertion of Infusion Device into Superior Vena Cava, Percutaneous Approach (ICD-10-PCS; 2022-08-27)
PROC: 5A1D70Z Performance of Urinary Filtration, Intermittent, Less than 6 Hours Per Day (ICD-10-PCS; 2022-08-28)
DX: J18.9 Pneumonia, unspecified organism (principal); I50.33 Acute on chronic diastolic (congestive) heart failure; N18.6 End stage renal disease; Z68.1 Body mass index [BMI] 19.9 or less, adult; I50.32 Chronic diastolic (congestive) heart failure; R18.8 Other ascites; I13.2 Hypertensive heart and chronic kidney disease with heart failure and with stage 5 chronic kidney disease, or end stage renal disease; J44.0 Chronic obstructive pulmonary disease with (acute) lower respiratory infection; J94.2 Hemothorax; J91.8 Pleural effusion in other conditions classified elsewhere; E11.22 Type 2 diabetes mellitus with diabetic chronic kidney disease; E11.40 Type 2 diabetes mellitus with diabetic neuropathy, unspecified; E11.65 Type 2 diabetes mellitus with hyperglycemia; E03.9 Hypothyroidism, unspecified; G25.81 Restless legs syndrome; R63.6 Underweight; Z88.5 Allergy status to narcotic agent; Z99.2 Dependence on renal dialysis; Z88.8 Allergy status to other drugs, medicaments and biological substances; Z79.4 Long term (current) use of insulin; Z90.49 Acquired absence of other specified parts of digestive tract; Z79.82 Long term (current) use of aspirin; Z79.02 Long term (current) use of antithrombotics/antiplatelets; Z28.310 Unvaccinated for COVID-19; Z79.899 Other long term (current) drug therapy; Z90.710 Acquired absence of both cervix and uterus; Z79.890 Hormone replacement therapy
CPT/HCPCS: 32555; 36415; 70450; 71045; 71250; 74176; 80048; 80053; 80076; 81001; 82248; 82805; 82945; 82947; 83605; 83615; 83690; 83735; 83880; 84100; 84132; 84145; 84157; 84311; 84439; 84443; 84484; 85025; 85610; 87015; 87040; 87045; 87046; 87102; 87116; 87205; 87206; 87324; 87425; 87804; 88108; 88305; 89050; 90935; 93005; 97161; 99285; J0696; J1644; J1815; J1940; J2001; J2150; J2250; J2405; J2704; J3010; J7030; J7040; J7050; P9047; U0003

== ENCOUNTER 2022-09-04 19:32 | Emergency (ER) | payer BC ==
--- NOTE | 2022-09-04 20:32 | ER ---
Nurse's Notes [facility] Name: Melissa De Oliveira Age: 57 yrs Sex: Female : 1965 Arrival Date: 09/04/2022 Time: 19:32 Bed 10 Private MD: Diagnosis: Encounter for change or removal of surgical wound dressing Presentation: 09/04 19:53 Chief complaint: Patient states: pt had a chest tube place a week ago by Dr Chen due vg1 to "lungs filling up". Pt was seen today by Dr Chen replace dressing at 0900. Pt noticed bleeding at 1845. Coronavirus screen: Vaccine status: Patient reports being unvaccinated. Ebola Screen: Patient negative for fever greater than or equal to 101.5 degrees Fahrenheit, and additional compatible Ebola Virus Disease symptoms Patient denies exposure to infectious person. Patient denies travel to an Ebola-affected area in the 21 days before illness onset. Initial Sepsis Screen: Does the patient meet any 2 criteria? No. Patient's initial sepsis screen is negative. Does the patient have a suspected source of infection? No. Patient's initial sepsis screen is negative. Risk Assessment: Do you want to hurt yourself or someone else? Patient reports no desire to harm self or others. Onset of symptoms was September 04, 2022. 19:53 Method Of Arrival: Wheelchair vg1 19:53 Acuity: DEYA 4 vg1 Triage Assessment: 19:58 General: Appears in no apparent distress. comfortable, Behavior is calm, cooperative. vg1 Pain: Denies pain. 19:58 Respiratory: Airway is patent Respiratory effort is even, unlabored. vg1 Historical: - Allergies: 19:58 Codeine; vg1 19:58 Dilaudid; vg1 19:58 Fentanyl; vg1 19:58 Morphine; vg1 19:58 Ritalin; vg1 19:58 Tramadol HCl; vg1 - PMHx: 19:58 Congestive heart failure; Diabetes - IDDM; Hypertensive disorder; kidney disease; lung vg1 failure; neuropathy; - PSHx: 19:58 Appendectomy; section; Cholecystectomy; vg1 - Immunization history:: Client reports having NOT received the Covid vaccine. - Social history:: Smoking status: Patient denies any tobacco usage or history of. Screenin:01 [facility] ED Fall Risk Assessment (Adult) History of falling in the last 3 months, mb9 including since admission No falls in past 3 months (0 pts) Confusion or Disorientation No (0 pts) Intoxicated or Sedated No (0 pts) Impaired Gait No (0 pts) Mobility Assist Device Used No (0 pt) Altered Elimination No (0 pt) Score/Fall Risk Level 0 - 2 = Low Risk Oriented to surroundings, Maintained a safe environment, Educated pt \\T\\ family on fall prevention, incl call for assistance when getting out of bed. Abuse screen: Denies threats or abuse. Nutritional screening: No deficits noted. Tuberculosis screening: No symptoms or risk factors identified. Assessment: 20:00 Reassessment: see triage assessment. mb9 20:36 Reassessment: No changes from previously documented assessment. Patient and/or family mb9 updated on plan of care and expected duration. Pain level reassessed. Patient is alert, oriented x 3, equal unlabored respirations, skin warm/dry/pink. Vital Signs: 19:53 BP 157 / 92; Pulse 82; Resp 18; Temp 98.2(O); Pulse Ox 91% on R/A; Weight 41.28 kg; vg1 Height 5 ft. 4 in. ; Pain 0/10; 20:35 BP 159 / 93; Pulse 78; Resp 16; Pulse Ox 96% on R/A; mb9 19:53 Body Mass Index 15.62 (41.28 kg, 162.56 cm) vg1 19:53 Pain Scale: Adult vg1 ED Course: 19:36 Patient arrived in ED. ag3 19:54 Mil[facility] Singh [facility]C [facility] kb 19:54 Raymon Alvares MD is Attending Physician. kb 19:58 Triage completed. vg1 19:58 Arm band placed on. vg1 20:00 Silvina Faith RN is Primary Nurse. mb9 20:01 Bed in low position. Call light in reach. Side rails up X 1. Client placed on mb9 continuous cardiac and pulse oximetry monitoring. NIBP monitoring applied. 20:01 No provider procedures requiring assistance completed. Patient did not have IV access mb9 during this emergency room visit. Administered Medications: No medications were administered Medication: 20:01 VIS not applicable for this client. mb9 Outcome: 20:32 Discharge ordered by . kb 20:36 Discharged to home ambulatory. mb9 20:36 Condition: stable 20:36 Discharge instructions given to patient, Instructed on discharge instructions, follow up and referral plans. Demonstrated understanding of instructions, follow-up care. 20:36 Patient left the ED. mb9 Signatures: Milvia Singh, ATTACHER-C ATTACHER-Dalila Avila Victoria, RN RN vg1 Silvina Faith RN RN mb9
--- NOTE | 2022-09-04 20:33 | EDPHYS ---
Physician Documentation [facility] Name: Melissa De Oliveira Age: 57 yrs Sex: Female : 1965 Arrival Date: 09/04/2022 Time: 19:32 Bed 10 Private MD: ED Physician Raymon Alvares HPI: 09/04 20:24 This 57 yrs old Female presents to ER via Wheelchair with complaints of LUNG TUBE kb BLEEDING. 20:31 Pt reports she had a chest tube placed one week ago to drain her lung. Was seen by Dr lester Chen today and had the dressing changed. Dressing was saturated this evening. Onset: The symptoms/episode began/occurred today. Severity of symptoms: At their worst the symptoms were mild moderate in the emergency department the symptoms are unchanged. The patient has not experienced similar symptoms in the past. The patient has been recently seen by a physician:. 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 - Social history:: Smoking status: Patient denies any tobacco usage or history of. ROS: 20:21 Constitutional: Negative for fever, chills, and weight loss. kb 20:21 All other systems are negative. Exam: 20:25 Constitutional: This is a well developed, well nourished patient who is awake, alert, kb and in no acute distress. Head/Face: Normocephalic, atraumatic. ENT: Moist Mucous membranes Cardiovascular: Regular rate and rhythm with a normal S1 and S2. No gallops, murmurs, or rubs. No pulse deficits. Respiratory: Respirations even and unlabored. No increased work of breathing. Talking in full sentences Abdomen/GI: Soft, non-tender. No distention MS/ Extremity: Pulses equal, no cyanosis. Neurovascular intact. Full, normal range of motion. Neuro: Awake and alert, GCS 15, oriented to person, place, time, and situation. Moves all extremities. Normal gait. 20:25 Skin: pleurex tube in place without active bleeding. Area cleaned and new dressing placed using sterile technique. . Vital Signs: 19:53 BP 157 / 92; Pulse 82; Resp 18; Temp 98.2(O); Pulse Ox 91% on R/A; Weight 41.28 kg; vg1 Height 5 ft. 4 in. ; Pain 0/10; 20:35 BP 159 / 93; Pulse 78; Resp 16; Pulse Ox 96% on R/A; mb9 19:53 Body Mass Index 15.62 (41.28 kg, 162.56 cm) vg1 19:53 Pain Scale: Adult vg1 MDM: 19:54 Patient medically screened. kb 20:25 Differential Diagnosis dressing change, bleeding surgical site. Data reviewed: vital kb signs, nurses notes. Management of patient was discussed with the following: Presser Hand: Dr Chen. Counseling: I had a detailed discussion with the patient and/or guardian regarding: the historical points, exam findings, and any diagnostic results supporting the discharge/admit diagnosis, the need for outpatient follow up, a family practitioner, to return to the emergency department if symptoms worsen or persist or if there are any questions or concerns that arise at home. Administered Medications: No medications were administered Disposition Summary: 09/04/22 20:32 Discharge Ordered Location: Home kb Condition: Stable kb Diagnosis - Encounter for change or removal of surgical wound dressing kb Followup: kb - With: Emergency Department - When: As needed - Reason: Worsening of condition Followup: kb - With: Private Physician - When: 2 - 3 days - Reason: Recheck today's complaints, Continuance of care, Re-evaluation by your physician Discharge Instructions: - Discharge Summary Sheet kb - How to Change Your Wound Dressing, [id number] kb Forms: - Medication Reconciliation Form kb - Thank You Letter kb - Antibiotic Education kb - Prescription Opioid Use kb Signatures: Milvia Singh FNP-C FNP-Ckb Garcia, Victoria, RN RN vg1
[2022-09-04 20:55] VITALS: TEMP 98.2
[2022-09-04 20:57] VITALS: BP 159/93; O2SAT 96
== END 2022-09-04 20:36 | disposition home or self-care (01) ==
LOC: ER 19:32
DX: Z48.01 Encounter for change or removal of surgical wound dressing (principal)

== ENCOUNTER 2022-09-12 14:51 | Inpatient (IN) | payer BC ==
[2022-09-12 16:58] LABS: Absolute Lymphocytes (CBC) 1.1 K/uL (0.7-4.9); Hematocrit 41.5 % (36.0-45.0); Lymphocytes % 23.3 % (15.3-44.8); MCV 91.1 fL (80-100); MPV 8.1 fL (7.6-11.3); Protime INR 1.24; RBC Red Blood Cell Count 4.55 M/uL (3.86-4.86)
--- NOTE | 2022-09-12 17:01 | RAD REPORT ---
EXAM DESCRIPTION: RADChest Single View09/12/2022 4:37 pm CLINICAL HISTORY: SOB COMPARISON: Chest Single View dated 08/31/2022; Chest Single View dated 08/30/2022; Chest Single View dated 08/28/2022; Chest Single View dated 08/27/2022hest Single View dated 08/31/2022; Chest Single Vie w dated 08/30/2022; Chest Single View dated 08/28/2022; Chest Single View dated 08/27/2022 TECHNIQUE: Portable AP view of the chest. FINDINGS: The right pleural effusion has increased in size, not least moderate extent. Small effusio n, stable to mildly progressed since the prior exam. Underlying airspace opacification. Central hazy opacities and interstitial prominence, mildly progressed on the left. Right IJ large-bore dialysis ca theter in place. Right lower hemithorax suspected pleural drainage catheter in place. The cardiomedia stinal contours are otherwise unchanged. IMPRESSION: Progressive right pleural effusion, as well as worsening central hazy opacities and inte rstitial prominence particularly on the left. Findings may reflect underlying pulmonary edema.
[2022-09-12 17:18] LABS: SARS-CoV-2 Antigen Rapid Res Negative (Negative)
[2022-09-12 17:27] LABS: Troponin High Sensitivity 21.8 pg/mL (<58.9)
[2022-09-12 17:28] LABS: Magnesium 2.5 mg/dL (1.6-2.4); Potassium 5.5 mEq/L (3.5-5.1)
[2022-09-12] MEDS ORDERED: HYDROMORPHONE HCL 0.5 MG/0.5 ML INJ ONE (18:08)
--- NOTE | 2022-09-12 18:51 | RAD REPORT ---
EXAM DESCRIPTION: CT - Thorax Wo Con - 09/12/2022 6:16 pm CLINICAL HISTORY: SOB COMPARISON: Thorax Wo Con dated 08/25/2022; Thorax Wo Con dated 08/14/2022; Chest For Pe Angio dated ; Chest For Pe Angio dated 04/24/2020; Chest Single View dated 09/12/2022 TECHNIQUE: Axial thin cut images of the chest were obtained without IV contrast. Multiplanar reforma ts were generated and reviewed. All CT scans are performed using dose optimization technique as appropriate and may include automated exposure control or mA/KV adjustment according to patient size. FINDINGS: No suspicious mass in the lung parenchyma. Large right pleural effusion with underlying at electasis, which includes complete collapse of the right lower lobe. A right pleural drainage cathete r is present, terminating near the base anteriorly. A small pneumothorax component is present with ai r-fluid levels, largest near the apex. A small left pleural effusion with underlying dependent atelec tasis is also present. Geographic ground-glass opacities and interlobular septal thickening are prese nt. No abnormal mediastinal or hilar masses or lymphadenopathy seen. Moderate cardiomegaly. Right IJ dial ysis catheter in place. No significant aortic or pulmonary artery findings. Assessment is limited in the absence of IV contrast. No chest wall mass or abnormal axillary lymphadenopathy. Evaluation of the solid abdominal structures reveals mild ascites and retroperitoneal edema. Diffuse body wall edema is also noted. Right second through seventh, and left fifth through eighth healing rib fractures, some of which are segmental. IMPRESSION: Large right and small left pleural effusion. Small pneumothorax component on the right m ay relate to presence of a pleural drainage catheter. Mild ascites and diffuse body wall edema. Findi ngs may relate to fluid overload, please correlate clinically. Geographic central ground-glass opacities and interlobular septal thickening, suggestive of mild pulm onary edema. Moderate cardiomegaly. Healing bilateral rib fractures as above, some of which have segmental on the right.
[2022-09-12] MEDS ORDERED: INSULIN -REGULAR HUMAN 50 UNIT/0.5 ML ML ONE (19:30)
--- NOTE | 2022-09-12 19:58 | EDPHYS ---
Physician Documentation [facility] Name: Melissa De Oliveira Age: 57 yrs Sex: Female : 1965 Arrival Date: 09/12/2022 Time: 14:51 Bed 19 Private MD: ED Physician Alexandru German HPI: 09/12 15:30 This 57 yrs old Female presents to ER via Ambulatory with complaints of Possible cp Pneumonia. 15:30 The patient or guardian reports possible pneumonia. cp 15:30 Onset: The symptoms/episode began/occurred today. Associated signs and symptoms: cp Pertinent negatives: chest pain, fever, vomiting. Patient reports she was referred to ED for evaluation by home health nurse for concern for fluid in right lung and possible pneumonia. Historical: - Allergies: 15:17 Codeine; iw 15:17 Dilaudid; iw 15:17 Fentanyl; iw 15:17 Morphine; iw 15:17 Ritalin; iw 15:17 Tramadol HCl; iw - PMHx: 15:17 Congestive heart failure; Diabetes - IDDM; Hypertensive disorder; kidney disease; lung iw failure; neuropathy; - PSHx: 15:17 Appendectomy; section; Cholecystectomy; iw - Immunization history:: Adult Immunizations not up to date. - Social history:: Smoking status: Patient denies any tobacco usage or history of. ROS: 15:35 Constitutional: Negative for body aches, chills, fever, poor PO intake. cp 15:35 Eyes: Negative for injury, pain, redness, and discharge. cp 15:35 ENT: Negative for drainage from ear(s), ear pain, sore throat, difficulty swallowing, difficulty handling secretions. 15:35 Cardiovascular: Negative for chest pain, edema, palpitations. 15:35 Respiratory: Positive for shortness of breath, on exertion. Negative for cough, wheezing. 15:35 Abdomen/GI: Negative for abdominal pain, vomiting, diarrhea, constipation. 15:35 Back: Negative for pain at rest, pain with movement. 15:35 Skin: Negative for rash. 15:35 Neuro: Negative for altered mental status, dizziness, headache, numbness, syncope, weakness. 15:35 All other systems are negative. Exam: 15:40 Constitutional: The patient appears in no acute distress, alert, awake, cp non-diaphoretic, non-toxic, well developed, frail. 15:40 Head/Face: Normocephalic, atraumatic. cp 15:40 Eyes: Periorbital structures: appear normal, Conjunctiva: normal, no exudate, no injection, Sclera: no appreciated abnormality, Lids and lashes: appear normal, bilaterally. 15:40 ENT: External ear(s): are unremarkable, Nose: is normal, Mouth: Lips: dry, Oral mucosa: moist, Posterior pharynx: is normal, airway is patent, no erythema, no exudate. 15:40 Neck: ROM/movement: is normal, is supple, without pain, no range of motions limitations. 15:40 Chest/axilla: Inspection: right side catheter, Palpation: crepitus, is not appreciated, tenderness, is not appreciated. 15:40 Cardiovascular: Rate: normal, Rhythm: regular, Edema: is not appreciated, JVD: is not appreciated. 15:40 Respiratory: the patient does not display signs of respiratory distress, Respirations: labored breathing, is not present, shallow respirations, that is mild, Breath sounds: decreased breath sounds, that are moderate, are heard in the right posterior middle lobe and right posterior lower lobe, stridor, is not appreciated, wheezing: is not appreciated. 15:40 Abdomen/GI: Inspection: abdomen appears normal, Palpation: abdomen is soft and non-tender, in all quadrants. 15:40 Back: CVA tenderness, is absent. 15:40 Skin: cellulitis, is not appreciated, no rash present. 15:40 Neuro: Orientation: to person, place \T\ time. Mentation: is normal, Cerebellar function: is grossly normal, Motor: moves all fours, strength is normal, Sensation: is normal. 15:55 ECG was reviewed by the Attending Physician. cp Vital Signs: 15:15 BP 162 / 91; Pulse 66; Resp 24; Temp 98.1; Pulse Ox 88% on R/A; Weight 45.36 kg; Height iw 5 ft. 4 in. ; Pain 4/10; 16:30 BP 171 / 109; Pulse 70; Resp 17; Pulse Ox 100% on R/A; nj1 17:48 BP 181 / 115; Pulse 69; Resp 24; Pulse Ox 100% on 2 lpm NC; nj1 18:08 Pain 8/10; nj1 18:38 BP 164 / 90; Pulse 59; Resp 16; Pulse Ox 97% on 2 lpm NC; Pain 5/10; nj1 21:23 BP 143 / 72; Pulse 60; Resp 18; Temp 98(TE); Pulse Ox 97% on 2 lpm NC; kl 15:15 Body Mass Index 17.16 (45.36 kg, 162.56 cm) iw 15:15 Pain Scale: Adult iw 18:08 Pain Scale: Adult nj1 18:38 Pain Scale: Adult nj1 MDM: 15:29 Patient medically screened. cp 16:00 Differential diagnosis: pneumonia, CHF, pneumothorax. cp 19:15 Data reviewed: vital signs, nurses notes, lab test result(s), EKG, radiologic studies, cp CT scan, plain films. 19:15 Antibiotic administration: Not indicated, the patient does not have an appreciated cp infiltrate. Management of patient was discussed with the following: Towel Weaver: DR Chen will consult after discussion and would like right lung catheter connected to negative pressure bottle to drain 1/2 to 1 liter fluid. Independent interpretation of the following test(s) in the Emergency Department EKG: See my EKG interpretation above X-Ray: My interpretation is increased right side pleural effusion. 19:20 Management of patient was discussed with the following: Hospitalist: Sada Vargas NP cp will admit after discussion. 19:20 Test considered but Not performed: CT: chest with contrast. Care significantly affected cp by the following chronic conditions: Diabetes, Hypertension, Congestive Heart Failure. 09/12 15:27 Order name: Basic Metabolic Panel; Complete Time: 17:44 09/12 17:44 Interpretation: Normal except: NA 134; K 5.5; CL 111; ANION GAP 4.5; GLUC 314; BUN 78; cp CRE 1.70; GFR 35; CA 8.2. 09/12 15:27 Order name: CBC with Diff; Complete Time: 17:09 cp 09/12 15:27 Order name: Magnesium; Complete Time: 17:44 cp 09/12 17:45 Interpretation: Reviewed. 09/12 15:27 Order name: NT PRO-BNP; Complete Time: 17:44 cp 09/12 17:45 Interpretation: Abnormal: NT PRO-BNP 29420. 09/12 15:27 Order name: PT-INR; Complete Time: 17:09 09/12 15:27 Order name: Troponin HS; Complete Time: 17:44 cp 06 15:27 Order name: Lactate w/ 2H reflex if indic.; Complete Time: 17:27 cp 09/12 15:27 Order name: Blood Culture Adult (2) cp 09/12 15:27 Order name: SARS RAPID; Complete Time: 17:27 cp 09/12 15:27 Order name: Influenza Screen (a \T\ B); Complete Time: 17:27 cp 09/12 19:28 Order name: Glucose, Ancillary Testing; Complete Time: 20:54 EDMS 09/12 15:27 Order name: XRAY Chest (1 view); Complete Time: 17:09 cp 09/12 17:10 Interpretation: Report review. cp 09/12 17:37 Order name: Thorax Wo Con; Complete Time: 19:09 EDMS 09/12 15:27 Order name: EKG; Complete Time: 15:28 cp 09/12 15:27 Order name: Cardiac monitoring; Complete Time: 16:11 cp 09/12 15:27 Order name: EKG - Nurse/Tech; Complete Time: 16:11 cp 09/12 15:27 Order name: IV Saline Lock; Complete Time: 16:53 cp 09/12 15:27 Order name: Labs collected and sent; Complete Time: 16:53 cp 09/12 15:27 Order name: O2 Per Protocol; Complete Time: 16:11 cp 09/12 15:27 Order name: O2 Sat Monitoring; Complete Time: 16:11 cp 09/12 19:11 Order name: Accucheck Blood Glucose; Complete Time: 19:16 cp EC:55 Rate is 68 beats/min. Rhythm is regular. NE interval is normal. QRS interval is normal. cp QT interval is normal. Interpreted by me. Reviewed by me. Administered Medications: 18:07 Drug: HYDROmorphone IVP 0.5 mg Route: IVP; Site: left forearm; nj1 18:42 Follow up: Response: No adverse reaction; Pain is decreased nj1 19:39 Drug: Insulin Regular Human IVP 10 units {Co-Signature: ha1 (Angelica Castillo RN).} Route: kl IVP; Site: right antecubital; 21:25 Follow up: Response: No adverse reaction 21:38 Drug: Furosemide IVP 40 mg Route: IVP; Site: left forearm; kl Disposition: 17:46 Co-signature as Attending Physician, Alexandru German I was immediately available on-site ms3 in the Emergency Department for consultation in the care of the patient. Disposition Summary: 09/12/22 19:58 Hospitalization Ordered Hospitalization Status: Inpatient Admission cp Location: Telemetry/MedSurg (Inpatient) cp Condition: Fair cp Problem: an ongoing problem cp Symptoms: have improved cp Bed/Room Type: Standard cp Provider: Fabrice Quinteros(09/12/22 21:03) sb4 Room Assignment: 204(09/12/22 21:14) mw Diagnosis - Pleural effusion in other conditions classified elsewhere cp - Dyspnea, unspecified cp - Hyperkalemia cp - Diabetes mellitus due to underlying condition with hyperglycemia cp Forms: - Medication Reconciliation Form cp - SBAR form cp Signatures: Dispatcher [employer] EDMS Elizabeth Castillo RN RN kl Webb, Martha, RN RN mw Williams, Irene RN Yogesh Julian PA PA cp Sims, Marcus, DO DO ms3 Pamella Vargas, PA-C PA-C sb4 Marcela Parikh RN RN nj1 Angelica Castillo RN ha1 Corrections: (The following items were deleted from the chart) 16:23 15:30 This 57 yrs old Female presents to ER via Ambulatory with complaints of Chest cp Pain. cp 17:37 17:28 Chest For PE Angio+CT.RAD.BRZ ordered. EDMS EDMS 21:03 19:58 Pamella Vargas cp sb4 21:14 19:58 cp
--- NOTE | 2022-09-12 19:58 | ER ---
Nurse's Notes [facility] Name: Melissa De Oliveira Age: 57 yrs Sex: Female : 1965 Arrival Date: 09/12/2022 Time: 14:51 Bed 19 Private MD: Diagnosis: Pleural effusion in other conditions classified elsewhere;Dyspnea, unspecified;Hyperkalemia;Diabetes mellitus due to underlying condition with hyperglycemia Presentation: 09/12 15:15 Chief complaint: Patient states: my home health nurse told me my left lung sounded full iw , they were worried about pneumonia. Coronavirus screen: At this time, the client does not indicate any symptoms associated with coronavirus-19. Ebola Screen: Patient negative for fever greater than or equal to 101.5 degrees Fahrenheit, and additional compatible Ebola Virus Disease symptoms Patient denies exposure to infectious person. Patient denies travel to an Ebola-affected area in the 21 days before illness onset. No symptoms or risks identified at this time. Initial Sepsis Screen: Does the patient meet any 2 criteria? No. Patient's initial sepsis screen is negative. Does the patient have a suspected source of infection? No. Patient's initial sepsis screen is negative. Risk Assessment: Do you want to hurt yourself or someone else? Patient reports no desire to harm self or others. Onset of symptoms was September 12, 2022. 15:15 Method Of Arrival: Ambulatory iw 15:15 Acuity: DEYA 3 iw Historical: - Allergies: 15:17 Codeine; iw 15:17 Dilaudid; iw 15:17 Fentanyl; iw 15:17 Morphine; iw 15:17 Ritalin; iw 15:17 Tramadol HCl; iw - PMHx: 15:17 Congestive heart failure; Diabetes - IDDM; Hypertensive disorder; kidney disease; lung iw failure; neuropathy; - PSHx: 15:17 Appendectomy; section; Cholecystectomy; iw - Immunization history:: Adult Immunizations not up to date. - Social history:: Smoking status: Patient denies any tobacco usage or history of. Screenin:36 Abuse screen: Denies threats or abuse. Denies injuries from another. Nutritional nj1 screening: No deficits noted. Tuberculosis screening: No symptoms or risk factors identified. 21:33 [facility] ED Fall Risk Assessment (Adult) History of falling in the last 3 months, kl including since admission No falls in past 3 months (0 pts) Confusion or Disorientation No (0 pts) Intoxicated or Sedated No (0 pts) Impaired Gait Yes (1 pt) Mobility Assist Device Used Yes (1 pt) Altered Elimination No (0 pt) Score/Fall Risk Level 0 - 2 = Low Risk Oriented to surroundings, Maintained a safe environment. Assessment: 15:40 General: Appears in no apparent distress. comfortable, Behavior is calm, cooperative, nj1 appropriate for age. Pain: Complains of pain in chest Pain does not radiate. Pain began 2-3 days ago. Neuro: Level of Consciousness is awake, alert, obeys commands, Oriented to person, place, time, situation. Cardiovascular: Patient's skin is warm and dry. Chest pain. Cardiovascular: Drain noted to left chest as well as dialysis cath.. Respiratory: Airway is patent Respiratory effort is even, unlabored. 16:30 Reassessment: Patient appears in no apparent distress at this time. Patient and/or [facility] family updated on plan of care and expected duration. Pain level reassessed. Patient is alert, oriented x 3, equal unlabored respirations, skin warm/dry/pink. 18:38 Reassessment: Patient appears in no apparent distress at this time. Patient and/or [facility] family updated on plan of care and expected duration. Pain level reassessed. Patient is alert, oriented x 3, equal unlabored respirations, skin warm/dry/pink. 21:25 Reassessment: Patient appears in no apparent distress at this time. Patient and/or family updated on plan of care and expected duration. Pain level reassessed. Patient is alert, oriented x 3, equal unlabored respirations, skin warm/dry/pink. Patient states symptoms have improved. Vital Signs: 15:15 BP 162 / 91; Pulse 66; Resp 24; Temp 98.1; Pulse Ox 88% on R/A; Weight 45.36 kg; Height iw 5 ft. 4 in. ; Pain 4/10; 16:30 BP 171 / 109; Pulse 70; Resp 17; Pulse Ox 100% on R/A; nj1 17:48 BP 181 / 115; Pulse 69; Resp 24; Pulse Ox 100% on 2 lpm NC; nj1 18:08 Pain 8/10; nj1 18:38 BP 164 / 90; Pulse 59; Resp 16; Pulse Ox 97% on 2 lpm NC; Pain 5/10; nj1 21:23 BP 143 / 72; Pulse 60; Resp 18; Temp 98(TE); Pulse Ox 97% on 2 lpm NC; kl 15:15 Body Mass Index 17.16 (45.36 kg, 162.56 cm) iw 15:15 Pain Scale: Adult iw 18:08 Pain Scale: Adult nj1 18:38 Pain Scale: Adult nj1 ED Course: 14:59 Patient arrived in ED. im 15:17 Triage completed. iw 15:18 Arm band placed on. iw 15:22 Yogesh Mcclain PA is PHCP. cp 15:23 Alexandru German DO is Attending Physician. cp 15:39 Marcela Parikh, KIRIT is Primary Nurse. nj1 16:20 Oxygen administration via nasal cannula \T\ 2L/min. nj1 16:25 Inserted saline lock: 22 gauge in left forearm, using aseptic technique. Blood nj1 collected. 16:37 Patient has correct armband on for positive identification. Bed in low position. Call nj1 light in reach. Adult w/ patient. 16:37 Client placed on continuous cardiac and pulse oximetry monitoring. NIBP monitoring nj1 applied. 16:39 XRAY Chest (1 view) In Process Unspecified. EDMS 17:50 Notified Nurse Practitioner and/or Physician Nurses Aide of vital signs. nj1 18:18 Thorax Wo Con In Process Unspecified. EDMS 19:57 Pamella Vargas PA-C is Hospitalizing Provider. cp 21:03 Fabrice Quinteros MD is Hospitalizing Provider. sb4 21:33 No provider procedures requiring assistance completed. Patient admitted, IV remains in kl place. Administered Medications: 18:07 Drug: HYDROmorphone IVP 0.5 mg Route: IVP; Site: left forearm; nj1 18:42 Follow up: Response: No adverse reaction; Pain is decreased nj1 19:39 Drug: Insulin Regular Human IVP 10 units {Co-Signature: ha1 (Angelica Castillo RN).} Route: kl IVP; Site: right antecubital; 21:25 Follow up: Response: No adverse reaction kl 21:38 Drug: Furosemide IVP 40 mg Route: IVP; Site: left forearm; Medication: 21:34 VIS not applicable for this client. kl Outcome: 19:58 Decision to Hospitalize by Provider. cp 21:32 Admitted to Med/surg accompanied by tech, via stretcher, Report called to zac eid 21:32 Condition: improved 21:32 Discharge instructions given to patient, family, Instructed on the need for admit, Demonstrated understanding of instructions. 22:09 Patient left the ED. [place] Signatures: Dispatcher [employer] EDElizabeth Plata RN RN kl Williams, Irene, RN RN iw Page, Corey, PA PA cp Brown, Sophia, PA-C PA-C sb4 Marcela Parikh RN RN nj1 Yojana Blake Heidy RN 1 Corrections: (The following items were deleted from the chart) 18:42 18:38 BP 164 / 90; Pulse 59bpm; Resp 16bpm; nj1 nj1 21:23 21:23 BP 146 / 73; Pulse 59bpm; Resp 18bpm; Pulse Ox 99% RA; stanton eid
--- NOTE | 2022-09-12 21:06 | P.HP ---
Certification for Inpatient Patient admitted to: Inpatient With expected LOS: >2 Midnights Patient will require the following post-hospital care: None Practitioner: I am a practitioner with admitting privileges, knowledge of patient current condition, hospital course, and medical plan of care. Services: Services provided to patient in accordance with Admission requirements found in Title 42 Section 412.3 of the Code of Federal Regulations Patient History Date of Service: 09/13/22 Reason for admission: Recurrent Pleural Effusion History of Present Illness: Ms. De Oliveira is a 57 year old female with past medical history of insulin-dependent type 2 diabetes, chronic diastolic CHF, hypertension, hypothyroidism, and chronic kidney disease (recently stopped dialysis after improvement in kidney function) who presented to the emergency department with concerns of pneumonia. Patient recently had prolonged hospitalization for large right pleural effusion, had right sided pleurx catheter placed, and was discharged about 2 weeks ago with home health to manage. Today it appears that the pleural effusion has reaccumulated because the pleurx is clogged and home health nurse has not been able to drain much fluid. CT of her chest showed "large right and small left pleural effusion. Small pneumothorax component on the right may relate to presence of a pleural drainage catheter." Dr. Chen, who placed the catheter, was contacted and recommended attaching the pleurx to negative pressure, which was done in ED and successfully drained 0.5L transudative fluid. Her labs are significant for sodium 134, potassium 5.5 (slight hemolysis), chloride 111, glucose 314, BUN 78, creatinine 1.7, GFR 30, BNP 13,000. Patient will be admitted for further management. Allergies codeine Allergy (Verified 05/23/20 11:53) Hives tramadol Allergy (Verified 03/25/18 03:14) Hives methylphenidate [From Ritalin] Adverse Reaction (Verified 03/25/18 03:14) seizures morphine Adverse Reaction (Verified 09/12/22 22:38) palpatations Home medications list reviewed: Yes Home Medications: Carvedilol [Coreg] 1 tab PO BID 08/22/22 Furosemide 1 tab PO BID 08/22/22 Gabapentin 200 mg PO BEDTIME 08/22/22 Insulin Lispro [Humalog Kwikpen U-100] See Protocol SQ ACHS 08/22/22 Levothyroxine [Synthroid*] 1 tab PO DAILY 08/22/22 Pantoprazole [Protonix Tab*] 1 tab PO DAILY 08/22/22 Ropinirole HCl [Requip*] 1 mg PO BID 08/22/22 Sertraline HCl 1 tab PO DAILY 08/22/22 Temazepam 1 cap PO BEDTIME 08/22/22 Carvedilol [Coreg] 3.125 mg PO BID 09/12/22 - Past Medical/Surgical History Diabetic: Yes -: Insulin-dependent diabetes -: Neuropathy -: CKD -: Chronic diastolic congestive heart failure -: Hypertension -: Hypothyroidism -: cholecystectomy -: hysterectomy -: appendectomy -: Psychosocial/ Personal History: Patient is disabled, lives with daughter, has home health - Family History Father -: Hypertension, Cancer Mother Notes: dementia - Social History Smoking Status: Never smoker Alcohol use: No CD- Drugs: No Caffeine use: No Place of Residence: Home Review of Systems Unremarkable Physical Examination - Vital Signs Temperature: 98.1 F Blood Pressure: 164/90 Pulse: 59 Respirations: 16 Pulse Ox (%): 97 (2L NC) - Physical Exam General: Alert, In no apparent distress HEENT: Atraumatic, EOMI, Sclerae nonicteric Neck: Supple, 2+ carotid pulse no bruit Respiratory: Diminished Cardiovascular: Regular rate/rhythm, Normal S1 S2 Gastrointestinal: Normal bowel sounds, No tenderness Musculoskeletal: No tenderness Integumentary: No rashes Neurological: Normal speech, Normal affect - Studies Laboratory Data (last 24 hrs) 09/12/22 16:25: PT 13.6 H, INR 1.24 09/12/22 16:25: WBC 4.50, Hgb 12.8, Hct 41.5, Plt Count 256 09/12/22 16:25: Sodium 134 L, Potassium 5.5 H, BUN 78 H, Creatinine 1.70 H, Glucose 314 H, Magnesium 2.5 H Microbiology Data (last 24 hrs): 09/12/22 16:50 Nasopharnyx Influenza Type A Antigen Screen - Final 09/12/22 16:50 Nasopharnyx Influenza Type B Antigen Screen - Final Assessment and Plan - Problems (Diagnosis) (1) Pleural effusion Current Visit: Yes Status: Acute (2) Congestive heart failure Current Visit: Yes Status: Chronic Qualifiers: Heart failure type: diastolic Heart failure chronicity: acute on chronic Qualified Code(s): I50.33 - Acute on chronic diastolic (congestive) heart failur e (3) Hypertension Current Visit: Yes Status: Chronic Qualifiers: Hypertension type: primary hypertension Qualified Code(s): I10 - Essential (primary) hypertension (4) Diabetes mellitus Current Visit: Yes Status: Chronic Qualifiers: Diabetes mellitus type: type 2 Diabetes mellitus group home insulin use: with termite control servicer use Diabetes mellitus complication status: with hyperglycemia Qualified Code(s): E11.65 - Type 2 diabetes mellitus with hyperglycemia; Z79.4 - jail (current) use of insulin (5) Chronic kidney disease Current Visit: Yes Status: Chronic Qualifiers: Chronic kidney disease stage: stage 3 (moderate) Chronic kidney disease stage 3 subtype: stage 3b (GFR 30-44) Qualified Code(s): N18.32 - Chronic kidney disease, stage 3b - Plan Patient is admitted for further management of recurrent right pleural effusion. PleurX placed on negative pressure in ED which resolved the clog and drained 0.5L transudative fluid. Monitor patient overnight, repeat chest xray in morning to reassess effusion. Dr. Chen consulted, aware of patient. Monitor BMP. Initial potassium was 5.5 but there was slight hemolysis. Reconcile and continue home medications. Monitor and replete electrolytes per protocol. Lovenox for VTE prophylaxis. Full code. Discharge Plan: Home Plan to discharge in: Greater than 2 days - Advance Directives Does patient have a Living Will: No Does patient have a Durable POA for Healthcare: No - Code Status/Comfort Care Code Status Assessed: Yes Code Status: Full Code Physician Review: Patient Assessed, Agree with Above Assessment and Plan Critical Care: No Time Spent Managing Pts Care (In Minutes): 50
[2022-09-12] MEDS ORDERED: FUROSEMIDE 40 MG/4 ML VIAL ONE (21:43)
[2022-09-12] MEDS: INSULIN -REGULAR HUMAN 50 UNIT/0.5 ML ML SQ SCH (22:19)
[2022-09-12 23:03] VITALS: BMI 18.0
[2022-09-13 04:50] LABS: Absolute Lymphocytes (CBC) 1.2 K/uL (0.7-4.9); Hematocrit 39.7 % (36.0-45.0); Lymphocytes % 23.2 % (15.3-44.8); MCV 91.3 fL (80-100); MPV 8.2 fL (7.6-11.3); RBC Red Blood Cell Count 4.35 M/uL (3.86-4.86)
[2022-09-13 05:09] LABS: Magnesium 2.3 mg/dL (1.6-2.4); Phosphorus 5.1 mg/dL (2.5-4.9); Potassium 5.5 mEq/L (3.5-5.1)
[2022-09-13 05:23] LABS: Thyroid Stimulating Hormone 13.8 uIU/mL (0.358-3.740)
--- NOTE | 2022-09-13 07:39 | RAD REPORT ---
EXAM DESCRIPTION: PATRICKManuelitot Single View09/13/2022 4:46 am CLINICAL HISTORY: Pleural effusion COMPARISON: September 12 2022 FINDINGS: Right pleural effusion has diminished in size. It appears moderate. Right chest tube in pl [place] No other change noted
[2022-09-13] MEDS: INSULIN -REGULAR HUMAN 50 UNIT/0.5 ML ML SQ SCH ×4 (09:35→20:12)
[2022-09-13] MEDS: ACETAMINOPHEN 500 MG TAB PO PRN ×2 (09:44→18:17)
[2022-09-13] MEDS ORDERED: SOD POLYSTYREN SUL 15 GM/60 ML UCUP PO ONE (10:12)
--- NOTE | 2022-09-13 13:47 | EKG ---
Test Date: 2022-09-12 Test Time: 15:48:16 Real Estate Administrator: KYM MEASUREMENT RESULTS: Intervals: Rate: 68 WY: 158 QRSD: 82 QT: 460 QTc: 489 [place]: P: 73 WY: 158 QRS: 107 T: 44 INTERPRETIVE STATEMENTS: Normal sinus rhythm Normal ECG Compared to ECG 08/21/2022 18:46:43 ST (T wave) deviation no longer present Possible ischemia no longer present Prolonged QT interval no longer present Electronically Signed On 09-13-22 13:46:30 CDT by Dawit Bailey
--- NOTE | 2022-09-13 13:54 | P.PN ---
Subjective Date of Service: 09/13/22 Chief Complaint: Recurrent Pleural Effusion Subjective: No new changes, Improving Physical Examination - Vital Signs Temperature: 96.9 F Blood Pressure: 137/74 Pulse: 74 Respirations: 16 Pulse Ox (%): 90 - Physical Exam General: Alert, Oriented x3 HEENT: Atraumatic, Normocephalic Respiratory: Normal air movement Cardiovascular: Normal pulses, Regular rate/rhythm, Normal S1 S2 Gastrointestinal: Soft and benign Musculoskeletal: No swelling Neurological: Normal speech - Studies Laboratory Data (last 24 hrs) 09/12/22 16:25: PT 13.6 H, INR 1.24 09/12/22 16:25: WBC 4.50, Hgb 12.8, Hct 41.5, Plt Count 256 09/12/22 16:25: Sodium 134 L, Potassium 5.5 H, BUN 78 H, Creatinine 1.70 H, Glucose 314 H, Magnesium 2.5 H Microbiology Data (last 24 hrs): 09/12/22 16:25 Blood - Blood Anaerobic Blood Culture - Final 09/12/22 17:20 Blood - Blood Anaerobic Blood Culture - Final 09/12/22 16:50 Nasopharnyx Influenza Type A Antigen Screen - Final 09/12/22 16:50 Nasopharnyx Influenza Type B Antigen Screen - Final Assessment And Plan - Plan Hyperkalemia: Persistent. Potassium is still elevated at 5.5. We discussed diet restriction. Kayexalate dose x1 Given Hypertension: We will monitor vital signs per unit protocol and continue to (medications CHF: We will continue Lasix dose p.o. Hyperlipidemia: We will continue statin therapy Pleural effusion: Surgeon on board for management of effusion. Prior dialysis dependent state: Hemodialysis catheter to be removed in the early part of next week CKD: We will continue to management of CKD with outpatient follow-up. Disposition: Pending removal of dialysis catheter Physician Review: Patient Assessed, Agree with Above Assessment and Plan
[2022-09-13] MEDS: LIDOCAINE 4% PATCH TOP SCH (14:05)
[2022-09-13] MEDS: FUROSEMIDE 40 MG TABLET PO SCH (14:07)
[2022-09-13] MEDS: LEVOTHYROXINE SOD 0.05 MG TABLET PO SCH (14:07)
[2022-09-13] MEDS: SERTRALINE HCL 50 MG TAB PO SCH (14:07)
[2022-09-13] MEDS: PANTOPRAZOLE 40MG TABLET PO SCH (14:07)
[2022-09-13] MEDS: carvediloL 3.125 MG TAB PO SCH (20:11)
[2022-09-13] MEDS: GABAPENTIN 100 MG CAP PO SCH (20:11)
[2022-09-13] MEDS: TEMAZEPAM 15 MG CAP PO SCH (20:11)
[2022-09-13] MEDS: ROPINIROLE HCL 1 MG TAB PO SCH (20:12)
[2022-09-14] MEDS: LEVOTHYROXINE SOD 0.05 MG TABLET PO SCH (05:48)
[2022-09-14 06:27] LABS: Absolute Lymphocytes (CBC) 1.2 K/uL (0.7-4.9); Hematocrit 33.5 % (36.0-45.0); Lymphocytes % 31.9 % (15.3-44.8); MCV 89.9 fL (80-100); MPV 8.1 fL (7.6-11.3); RBC Red Blood Cell Count 3.73 M/uL (3.86-4.86)
[2022-09-14 06:43] LABS: Potassium 5.1 mEq/L (3.5-5.1)
[2022-09-14] MEDS: INSULIN -REGULAR HUMAN 50 UNIT/0.5 ML ML SQ SCH ×4 (07:30→20:49)
[2022-09-14] MEDS: PANTOPRAZOLE 40MG TABLET PO SCH (08:43)
[2022-09-14] MEDS: SERTRALINE HCL 50 MG TAB PO SCH (08:43)
[2022-09-14] MEDS: ROPINIROLE HCL 1 MG TAB PO SCH ×2 (08:43→20:49)
[2022-09-14] MEDS: LIDOCAINE 4% PATCH TOP SCH (08:44)
[2022-09-14] MEDS: carvediloL 3.125 MG TAB PO SCH ×2 (08:47→20:48)
[2022-09-14] MEDS: FUROSEMIDE 40 MG TABLET PO SCH ×2 (08:49→16:43)
[2022-09-14] MEDS: ONDANSETRON 4 MG/2 ML VIAL IV PRN ×2 (09:01→20:48)
[2022-09-14] MEDS ORDERED: ALBUTEROL 2.5 MG/3 ML NEB SOL NEB ONE (09:09)
--- NOTE | 2022-09-14 09:37 | RAD REPORT ---
EXAM DESCRIPTION: RAD - Chest Single View - 09/14/2022 9:31 am CLINICAL HISTORY: o2 dropped post emesis COMPARISON: Chest Single View dated 09/13/2022; Chest Single View dated 09/12/2022; Chest Single View da saran 08/31/2022; Chest Single View dated 08/30/2022; Thorax Wo Con dated 09/12/2022 FINDINGS: Lines: Right IJ approach dialysis catheter. Lungs: Consolidation, right greater than left likely due to atelectasis. Pleural: Moderate to large right effusion. Small left effusion. Old right-sided pleural catheter. Cardiac: Partially obscured. Mediastinum: Within normal limits. Bones: No acute fractures. Other: None IMPRESSION: Moderate to large right and small left pleural effusions which may be due to underlying pulmonary edema. Presumably there is underlying atelectasis. A right-sided tunneled pleural drain is present.
--- NOTE | 2022-09-14 10:23 | P.PN ---
Subjective Date of Service: 09/14/22 Chief Complaint: Recurrent Pleural Effusion Subjective: No new changes Physical Examination - Vital Signs Temperature: 97.9 F Blood Pressure: 131/75 Pulse: 54 Respirations: 16 Pulse Ox (%): 93 - Physical Exam General: Alert HEENT: Atraumatic, Normocephalic Neck: Supple Respiratory: Normal air movement Gastrointestinal: Soft and benign Musculoskeletal: No swelling Neurological: Normal speech - Studies Microbiology Data (last 24 hrs): 09/12/22 17:20 Blood - Blood Anaerobic Blood Culture - Final 09/12/22 16:25 Blood - Blood Anaerobic Blood Culture - Final Assessment And Plan - Plan Hyperkalemia: Persistent. Potassium is still elevated at 5.1. We discussed diet restriction. Hypertension: We will monitor vital signs per unit protocol and continue to (medications CHF: We will continue Lasix dose p.o. Pleural effusion getting worse. we will review with surgeon. Hyperlipidemia: We will continue statin therapy Pleural effusion: Surgeon on board for management of effusion. slight worsening noted today on imaging. Prior dialysis dependent state: Hemodialysis catheter to be removed in the early part of next week CKD: We will continue to management of CKD with outpatient follow-up. Disposition: Pending removal of dialysis catheter Physician Review: Patient Assessed, Agree with Above Assessment and Plan
[2022-09-14] MEDS ORDERED: ALBUMIN HUMAN 25% 50 ML IV ONE (12:44)
--- NOTE | 2022-09-14 14:32 | CON ---
Date of Consultation: 09/12/2022 Brief History Of Present Illness: The patient is a 57-year-old female with past medical history of d iabetes, chronic CHF, hypertension, hypothyroidism, CKD with significant improvement who presents to the emergency department with concerns of pneumonia, increased shortness of breath, and has a history of a right pleural effusion status post placement of a PleurX catheter. She was discharged about 2 weeks ago prior but had difficulty getting her drainage performed due to financial inability to purch ase the Vacutainer bottles. I personally supplied her with additional bottles, which she was able to use. However, we ran out of bottles, which were available as well. She came in with progressive sh ortness of breath and as such she is being admitted for respiratory insufficiency. Past Medical History: Significant for diabetes, neuropathy, CKD, CHF with chronic diastolic dysfunct ion, hypertension, hypothyroidism. Past Surgical History: Includes cholecystectomy, hysterectomy, appendectomy, , and right Pl eurX catheter placement on last occasion. Allergies: TO CODEINE, TRAMADOL, RITALIN, MORPHINE. Home Medications: Included Coreg, Lasix, gabapentin, insulin, Synthroid, Protonix, Requip, sertralin e, temazepam. She denies smoking, alcohol, or recreational drug use. Review of Systems: Ten-point review of systems other than HPI. She admits to shortness of breath currently. Physical Examination: Vital Signs: At the time of my examination, her BMI is 18.1. Her vital signs were blood pressure 16 6/90, pulse 70, respirations 16, temperature is 96.9, O2 sats were 100% on 2 L nasal cannula. General: She is awake, alert, and oriented. Psychiatric: She is appropriate. Conversive. She still appears thin and frail. HEENT: She is normocephalic. Her sclerae are anicteric. Her mucous membranes are moist. Oropharyn x is clear. She has poor dentition. Neck: Supple without JVD. Chest: Normal expansion. Decreased breath sounds on the right as compared with left. She continues to have wheezes on the right as well and the PleurX catheter is in place without evidence of infecti on or drainage. It is in a good position grossly. Abdomen: Soft. Extremities: No clubbing, cyanosis, edema. Skin: Warm and dry. Laboratory Data: Reveals a white blood count 5.3, hemoglobin 12.2, hematocrit 39.7, platelet count w as 217. Her PT on admission 13.6, INR 1.24. Her sodium 136, potassium 5.5, chloride 115, carbon erik xide was 22, BUN is 79, creatinine 1.52, glucose was 100. Calcium 7.9, phosphorus is 5.1. She had i maging performed which included a chest CT on 09/12 officially read as large right and small left ple ural effusions. Small pneumothorax component on the right may be related to presence of Pleurx drain age catheter. Mild ascites and diffuse body wall edema. Findings may be related to fluid overload. Please correlate clinically. Geographic central ground-glass opacities and interlobular septal thic kening suggestive of mild pulmonary edema. Healing bilateral rib fractures as above. Some of which have segmental on the right. Assessment And Plan: This is a 57-year-old woman who has a persistent chronic recurrent pleural effu edgardo and possible respiratory insufficiency secondary to pneumonic versus other medical condition. 1.Continue current medical management per primary medical team. 2.Drain 500 cc of PleurX catheter during her admission in the ER was performed with significant impr ovement of her shortness of breath. 3.Recommend consultation with Dr. Llamas regarding her current hemodialysis catheter in the right in ternal jugular vein, which she states she has not used for some time and there was discussion of vale roderick in the past. 4.Also appreciate Dr. Llamas's input regarding the fluid status as we continued to pull fluid off th e PleurX catheter. I would like to replace the fluid losses to ensure we did not achieve a hypovolem ic state. 5.I have explained the risks, benefits, alternatives of the above stated plan to the patient. She a grees to proceed as indicated. TK/MODL Voice ID: [id number] Report ID: [id number]
--- NOTE | 2022-09-14 16:59 | CON ---
Date of Consultation: 09/14/2022 Reason For Consult: Chronic renal insufficiency with hyperkalemia. History Of Present Illness: Ms. Gustafson is a 57-year-old female with a complicated past medical histor y being followed by Dr. Llamas for her chronic kidney disease. The patient has history of acute kidn ey injury requiring dialysis, however, her renal function has recovered and she was taken off dialysi s, but again needed it intermittently for hyperkalemia management. The patient has a history of assistant director jody pleural effusion and has had PleurX catheter placed for drainage. She presented to the emergency room because home health was unable to drain her PleurX catheter and she also started developing nohemi rtness of breath. The patient was evaluated in the emergency room and upon placement of the PleurX c atheter to negative suction, it was able to drain about 500 mL of fluid. She was doing okay and was on 2.5 L of oxygen this morning, however, she developed nausea and sudden onset of shortness of breat h and chest x-ray showed large right pleural effusion and small left pleural effusion. Dr. Chen i s following the patient closely for management of her PleurX catheter and pleural effusion. The earnest ent's potassium was noted to be 5.5 upon admission and it has improved to 5.1 this morning. She rey es any chest pain, otherwise just had some nausea and vomiting. She does have significant shortness of breath and is currently on 10 L non-rebreather. Past Medical History: Significant for history of insulin-dependent diabetes with neuropathy and assistant director jody kidney disease, history of chronic diastolic heart failure, hypertension, hypothyroidism, history of cholecystectomy, hysterectomy, appendectomy, and . She has had a PleurX catheter placed for recurrent pleural effusions. She has had a right-sided tunneled dialysis catheter placed also f or dialysis, which is currently in place. Social History: She is disabled, lives with a daughter. Has home health. No history of smoking or alcohol use reported at this time. Review of Systems: As per history of present illness. Physical Examination: Vital Signs: Showing temperature of 97.1, pulse rate of 48, respiratory rate of 16, and blood pressu re of 138/71, O2 saturation of 95% on non-rebreather. General: She appears cachectic, malnourished. HEENT: Shows atraumatic head. No JVD was noted. Heart: Auscultation of the heart revealed regular rate and rhythm. Lungs: Auscultation the lungs revealed diminished breath sounds in the right lung and no breath soun ds on the right side of the chest and diminished breath sounds on the left lung base, but otherwise b ilateral equal air entry anteriorly. Abdomen: Soft, nontender, and nondistended. Extremities: Showed muscle wasting and cachexia. Neurologic: She is alert, awake, and oriented x3. No focal motor neurological deficits were noted. Laboratory Data: At this time are showing, potassium of 5.1, creatinine of 1.56, and BUN of 79. Sod ium of 141. CBC showing hemoglobin of 10.5, hematocrit of 33.5, and platelet count of 208. WBC coun t was 3.8. Current Medications: Include carvedilol 3.125 mg b.i.d., Lasix 40 mg b.i.d., pantoprazole, ropinirol e, Zoloft, she got 45 g of Kayexalate x1 time dose, and temazepam 30 mg at bedtime. Impression: 1.Chronic renal insufficiency with an acute component, currently with overall stable renal function. 2.Hyperkalemia. We will go ahead and place her on chronic potassium-lowering therapy with Lokelma 5 g daily. 3.Recurrent right-sided pleural effusion with history of PleurX catheter drain. I have requested Dr Francis Chen to drain about 1 L of fluid off her PleurX catheter. In the past, she has developed some h ypotensive episodes and confusion after removing too much fluid from the PleurX catheter. I have req uested RN to give her 12.5 g of albumin after the fluid is removed to maintain her hemodynamics statu s. 4.Muscle wasting and cachexia. We will need to increase protein supplementation orally. 5.Anemia secondary to chronic disease, currently stable. Plan: Patient is overall doing okay. Renal function is stable. I have requested Dr. Chen to get the dialysis catheter removed on Friday as per schedule. We will remove 1 L of fluid through the Pl eurX drain and monitor her clinically and follow up closely. Avoid further episodes of hypotension a nd Lokelma has been ordered for chronic potassium-lowering therapy. VV/MODL Voice ID: [id number] Report ID: [id number]
[2022-09-14] MEDS: GABAPENTIN 100 MG CAP PO SCH (20:48)
[2022-09-14] MEDS: TEMAZEPAM 15 MG CAP PO SCH (20:49)
[2022-09-14] MEDS: BENZONATATE 100 MG CAP PO PRN (23:48)
[2022-09-15 05:58] LABS: Absolute Lymphocytes (CBC) 0.9 K/uL (0.7-4.9); Lymphocytes % 18.7 % (15.3-44.8); MCV 90.1 fL (80-100); MPV 8.3 fL (7.6-11.3); RBC Red Blood Cell Count 3.88 M/uL (3.86-4.86)
[2022-09-15] MEDS: LEVOTHYROXINE SOD 0.05 MG TABLET PO SCH (06:17)
[2022-09-15 06:20] LABS: Potassium 5.9 mEq/L (3.5-5.1)
[2022-09-15] MEDS: BENZONATATE 100 MG CAP PO PRN (07:25)
[2022-09-15] MEDS: INSULIN -REGULAR HUMAN 50 UNIT/0.5 ML ML SQ SCH ×4 (07:30→20:57)
[2022-09-15] MEDS: FUROSEMIDE 40 MG TABLET PO SCH ×2 (08:45→16:53)
[2022-09-15] MEDS: LIDOCAINE 4% PATCH TOP SCH (08:45)
[2022-09-15] MEDS: PANTOPRAZOLE 40MG TABLET PO SCH (08:45)
[2022-09-15] MEDS: SERTRALINE HCL 50 MG TAB PO SCH (08:45)
[2022-09-15] MEDS: carvediloL 3.125 MG TAB PO SCH ×2 (08:45→20:56)
[2022-09-15] MEDS: ROPINIROLE HCL 1 MG TAB PO SCH ×2 (08:47→20:56)
--- NOTE | 2022-09-15 09:51 | P.PN ---
Subjective Date of Service: 09/15/22 Chief Complaint: Recurrent Pleural Effusion Subjective: No new changes, Improving Physical Examination - Vital Signs Temperature: 97.1 F Blood Pressure: 139/75 Pulse: 55 Respirations: 18 Pulse Ox (%): 91 - Physical Exam General: Alert, Oriented x3 HEENT: Atraumatic, Normocephalic Neck: Supple Respiratory: Diminished Cardiovascular: Regular rate/rhythm, Normal S1 S2 Gastrointestinal: Soft and benign Musculoskeletal: No swelling Assessment And Plan - Plan Hyperkalemia: Persistent. Potassium is still elevated at 5.9. Kayexalate dose to be repeated today. We will continue to discuss diet restriction. Hypertension: We will monitor vital signs per unit protocol and continue to (medications CHF: We will continue Lasix dose p.o. Pleural effusion drained yesterday. surgeon following. Hyperlipidemia: We will continue statin therapy Pleural effusion: Surgeon on board for management of effusion. Prior dialysis dependent state: Hemodialysis catheter to be removed in the early part of next week CKD: We will continue to management of CKD with outpatient follow-up. Disposition: Pending removal of dialysis catheter Physician Review: Patient Assessed, Agree with Above Assessment and Plan
--- NOTE | 2022-09-15 12:29 | P.PN ---
Subjective Date of Service: 09/15/22 Chief Complaint: Recurrent Pleural Effusion Subjective: Improving (Patient had 1 liter drained from RIGHT chest, less shortness of breath) Physical Examination - Vital Signs Temperature: 97.1 F Blood Pressure: 139/75 Pulse: 55 Respirations: 18 Pulse Ox (%): 91 - Physical Exam General: Alert, In no apparent distress, Cooperative Neck: Other (RIGHT IJ HD catheter in place) Respiratory: Diminished, Other (RIGHT pleurX in place) Assessment And Plan - Current Problems (Diagnosis) (1) Pleural effusion Current Visit: Yes Status: Acute Plan: - continue drainage with fluid management to prevent hypovolemia if patient has fluid drawn from chest tube -I have explained the risk benefits alternatives to removal of tunneled hemodialysis catheter including but not limited to bleeding infection damage surrounding tissues need for further operation procedures. All patient's questions were answered she agrees to proceed at this point I have gotten the approval of the fence making machine operator to proceed Physician Review: Patient Assessed, Agree with Above Assessment and Plan
[2022-09-15] MEDS ORDERED: SODIUM ZIRCONIUM CYCLOSILICATE 10 GM/PKT PO SCH (13:00)
[2022-09-15] MEDS ORDERED: SOD POLYSTYREN SUL 15 GM/60 ML UCUP PO ONE (13:22)
[2022-09-15] MEDS: GABAPENTIN 100 MG CAP PO SCH (20:56)
[2022-09-15] MEDS: TEMAZEPAM 15 MG CAP PO SCH (20:56)
[2022-09-16] MEDS: LEVOTHYROXINE SOD 0.05 MG TABLET PO SCH (05:44)
[2022-09-16] MEDS: INSULIN -REGULAR HUMAN 50 UNIT/0.5 ML ML SQ SCH ×4 (07:30→21:00)
[2022-09-16 08:21] LABS: Potassium 5.9 mEq/L (3.5-5.1)
[2022-09-16] MEDS ORDERED: NA CHLORIDE 0.9% 1,000 ML ONE (08:26)
[2022-09-16 08:43] LABS: Absolute Lymphocytes (CBC) 1.9 K/uL (0.7-4.9); Hematocrit 38.2 % (36.0-45.0); Lymphocytes % 36.6 % (15.3-44.8); MCV 91.3 fL (80-100); MPV 8.5 fL (7.6-11.3); RBC Red Blood Cell Count 4.18 M/uL (3.86-4.86)
--- NOTE | 2022-09-16 08:44 | RAD REPORT ---
EXAM DESCRIPTION: Marco A Single View09/16/2022 8:33 am CLINICAL HISTORY: Shortness of breath COMPARISON: September 14, 2022 FINDINGS: The bilateral pleural effusions right greater than left again demonstrated. Bibasilar atel ectasis. There may be mild interstitial pulmonary edema Right pneumothorax not clearly visualized. Cardiomegaly. Central venous line in place
[2022-09-16] MEDS: PANTOPRAZOLE 40MG TABLET PO SCH ×2 (09:00→14:01)
[2022-09-16] MEDS: FUROSEMIDE 40 MG TABLET PO SCH (09:00)
[2022-09-16] MEDS: carvediloL 3.125 MG TAB PO SCH ×3 (09:00→21:00)
[2022-09-16] MEDS: ROPINIROLE HCL 1 MG TAB PO SCH ×3 (09:00→20:57)
[2022-09-16] MEDS: SERTRALINE HCL 50 MG TAB PO SCH ×2 (09:00→14:02)
[2022-09-16] MEDS: LIDOCAINE 4% PATCH TOP SCH (09:14)
[2022-09-16] MEDS: SODIUM ZIRCONIUM CYCLOSILICATE 10 GM/PKT PO SCH (12:14)
--- NOTE | 2022-09-16 13:02 | P.PN ---
Nephrology note (S) TDC removal postponed as pt had an event of desaturation earlier per reports, pt seen without distress but on O2, no low BP reported, but pt s/ IVF bolus ordered by primary team per floor RN. K level remains elevated. (O) Vitals reviewed in the EMR Gen: Appears chronically ill Resp: b/l air entry, reduced at bases, Rt pleurx catheter CVS: RRR mostly Abd: Soft, ND, NT Ext: No sig LE edema Neuro: Awake, alert, non focal A/P) 1. Sub-acute HANSA on underlying CKD NOS with reports of (prior) dialysis dependence but off HD for several weeks. Cr level has trended upwards during admission, mod azotemia present, will hold off on temp dialysis catheter removal today. Given muscle mass loss, Cr level is more notable, eGFR calculators may be less reliable 2. Hyperkalemia, recurrent due to renal impairment, other -strict low K diet, cont cation exchangers with Loklema or Veltassa. Will add low dose thiazide diuretic to her loop. 3. Recurrent right-sided pleural effusion NOS with history of PleurX catheter drain. Latest CXR still with effusions, cont to drain intermittently and as tolerated 4. Anemia secondary to chronic disease, currently stable 5. Chronic CHF unspecified -BNP > 10K, destauration episode earlier today, cont diuretics Thor Amezcua MD, NATHANAEL
[2022-09-16] MEDS: METOLAZONE 2.5 MG TABLET PO SCH (14:03)
[2022-09-16] MEDS: FUROSEMIDE 20 MG TABLET PO SCH (16:33)
--- NOTE | 2022-09-16 17:50 | P.PN ---
Subjective Date of Service: 09/16/22 Chief Complaint: Recurrent Pleural Effusion Rapid Response called this morning ~08:02 AM. I arrived at bedside immediately after. She appeared lethargic and had an SpO2 of 41 % on nasal cannula. Her oxygen was escalated to a non-rebreather mask. Dr. Chen was called and arrived at [facility] shortly after. He placed her Pleur-X on negative pressure, and fluid began draining. Her SpO2 sats quickly shyann to 94%. She became more awake and alert and stated that she felt fine. She reported mild shortness of breath. She denies any chest pain or palpitations. Review of Systems 10-point ROS is otherwise unremarkable Respiratory: Shortness of Breath Physical Examination - Vital Signs Temperature: 97.5 F Blood Pressure: 158/76 Pulse: 48 Respirations: 14 Pulse Ox (%): 98 Assessment And Plan - Plan - Physical Exam General: Post-rapid response, Alert, In no apparent distress, Oriented x3 HEENT: Atraumatic, Mucous membr. moist/pink, Sclerae nonicteric Neck: JVD not distended Respiratory: Diminished breath sounds in the posterior right lung base, right PleurX catheter in place Cardiovascular: No edema, Regular rate/rhythm, No murmurs Gastrointestinal: Soft, Non-distended, Normoactive, No tenderness Musculoskeletal: No clubbing Integumentary: No rashes Neurological: Normal speech, Normal affect # Acute Hypoxic Respiratory Failure secondary to Recurrent Large Right Pleural Effusion s/p Pleur-X - Evaluation thus far: - CT chest = "large right and small left pleural effusion. Small pneumothorax component on the right may relate to presence of a pleural drainage catheter. Mild ascites and diffuse body wall edema. Findings may relate to fluid overload, please correlate clinically. Geographic central ground-glass opacities and interlobular septal thickening, suggestive of mild pulmonary edema. Moderate cardiomegaly. Healing bilateral rib fractures as above, some of which have segmental on the right." - Chest x-ray (09/16) = "the bilateral pleural effusions right greater than left again demonstrated. Bibasilar atelectasis. There may be mild interstitial pulmonary edema. Right pneumothorax not clearly visualized. Cardiomegaly. Central venous line in place moderate increase in size of right pleural effusion since comparative study from yesterday. The amount of air in the right pleural space appears diminished." - Management plan: - Consulted Pulmonology - recommendations appreciated - Consulted General Surgery and spoke with Dr. Chen - recommendations appreciated - Consulted Respiratory Therapy - Supplemental oxygen to maintain SpO2 > 92% - Encouraged incentive spirometry # Type II Diabetes Mellitus - Correction scale insulin # Hyperkalemia with Dialysis Dependence - Nephrology consulted - recommendations appreciated - Monitor urine output - Renally dose medications # Hypothyroidism - TSH 13.8 Free T4 0.98 - Continue home levothyroxine # Hypertension - Continue home carvedilol # Restless Leg Syndrome - Continue home gabapentin, ropinirole Mateo Rodriguez M.D.
[2022-09-16] MEDS: GABAPENTIN 100 MG CAP PO SCH (21:00)
[2022-09-16] MEDS: TEMAZEPAM 15 MG CAP PO SCH (21:00)
[2022-09-16] MEDS: BENZONATATE 100 MG CAP PO PRN (21:14)
[2022-09-17 04:21] LABS: Potassium 5.5 mEq/L (3.5-5.1)
[2022-09-17] MEDS: LEVOTHYROXINE SOD 0.05 MG TABLET PO SCH (06:00)
[2022-09-17] MEDS: INSULIN -REGULAR HUMAN 50 UNIT/0.5 ML ML SQ SCH ×4 (07:30→21:00)
[2022-09-17] MEDS: ARFORMOTEROL TARTRATE 15 MCG/2 ML VIAL.NEB NEB SCH ×2 (09:00→21:18)
[2022-09-17] MEDS: SODIUM ZIRCONIUM CYCLOSILICATE 10 GM/PKT PO SCH (09:13)
[2022-09-17] MEDS: ROPINIROLE HCL 1 MG TAB PO SCH ×2 (09:14→21:05)
[2022-09-17] MEDS: PANTOPRAZOLE 40MG TABLET PO SCH (09:14)
[2022-09-17] MEDS: SERTRALINE HCL 50 MG TAB PO SCH (09:14)
[2022-09-17] MEDS: predniSONE 20 MG TAB PO SCH ×2 (09:14→21:05)
[2022-09-17] MEDS: FUROSEMIDE 20 MG TABLET PO SCH (09:15)
[2022-09-17] MEDS: carvediloL 3.125 MG TAB PO SCH ×2 (09:15→21:05)
[2022-09-17] MEDS: LIDOCAINE 4% PATCH TOP SCH (09:16)
--- NOTE | 2022-09-17 11:41 | P.PN ---
Nephrology note (S) TDC removal postponed yesterday. Pt reports some chest discomfort this AM, remains on O2/5L, has some congestion/cough but unable to expectorate. Lab results discussed (O) Vitals reviewed in the EMR Gen: Appears chronically ill Resp: b/l air entry, reduced at bases, Rt pleurx catheter CVS: RRR mostly Abd: Soft, ND, NT Ext: No sig LE edema Neuro: Awake, alert, non focal A/P) 1. Sub-acute HANSA on underlying CKD NOS with reports of (prior) dialysis dependence but off HD for several weeks. Cr level had trended upwards during admission, mod azotemia present, so did hold off on temp dialysis catheter removal yesterday although levels marginally better today. Given muscle mass loss, Cr level is more notable, eGFR calculators may be less reliable. If renal function tests remain stable, will attempt to re-pursue dialysis catheter removal 2. Hyperkalemia, recurrent due to renal impairment, other -strict low K diet, cont cation exchangers with Loklema or Veltassa. Did add low dose thiazide diuretic to her loop. K level lower but still > ULN this AM 3. Recurrent right-sided pleural effusion NOS with history of PleurX catheter drain. Latest CXR still with effusions, cont to drain intermittently and as tolerated 4. Anemia secondary to chronic disease, currently stable 5. Chronic CHF unspecified -BNP > 10K, destauration episode yesterday, cont diuretics. Monitoring UOP via Purewick, will increase Lasix dose back to 40 mg BID, will cont low dose Metolazone Thor Amezcua MD, NATHANAEL
--- NOTE | 2022-09-17 11:43 | P.CNS ---
Date of Consult: 09/17/22 Chief Complaint: Recurrent Pleural Effusion History of Present Illness: Patient is 57 years of age was recently discharged with a Pleurx catheter was readmitted again complaining of some pain in her right side of the chest [place] any fever or chills apparently a Pleurx catheter got clogged is now draining planing of chest congestion history of COPD never smoked is with her daughter at home is very independent Allergies codeine Allergy (Verified 05/23/20 11:53) Hives tramadol Allergy (Verified 03/25/18 03:14) Hives methylphenidate [From Ritalin] Adverse Reaction (Verified 03/25/18 03:14) seizures morphine Adverse Reaction (Verified 09/12/22 22:38) palpatations Home Medications: Carvedilol [Coreg] 1 tab PO BID 08/22/22 Furosemide 1 tab PO BID 08/22/22 Gabapentin 200 mg PO BEDTIME 08/22/22 Insulin Lispro [Humalog Kwikpen U-100] See Protocol SQ ACHS 08/22/22 Levothyroxine [Synthroid*] 1 tab PO DAILY 08/22/22 Pantoprazole [Protonix Tab*] 1 tab PO DAILY 08/22/22 Ropinirole HCl [Requip*] 1 mg PO BID 08/22/22 Sertraline HCl 1 tab PO DAILY 08/22/22 Temazepam 1 cap PO BEDTIME 08/22/22 Carvedilol [Coreg] 3.125 mg PO BID 09/12/22 - Past Medical/Surgical History Diabetic: Yes -: Insulin-dependent diabetes -: Neuropathy -: CKD -: Chronic diastolic congestive heart failure -: Hypertension -: Hypothyroidism -: Chronic right-sided pleural effusion s/p Pleurx catheter -: cholecystectomy -: hysterectomy -: appendectomy -: -: pneumocath x2 Psychosocial/ Personal History: Patient is disabled, lives with daughter, has home health - Family History Father Medical History: Hypertension, Cancer Mother Notes: dementia - Social History Smoking Status: Unknown if ever smoked Alcohol use: No CD- Drugs: No Caffeine use: No Place of Residence: Home Review of Systems 10-point ROS is otherwise unremarkable General: Weakness Respiratory: Cough, Shortness of Breath Physical Examination Temp Pulse Resp BP Pulse Ox 97.9 F 45 L 16 130/64 88 L 09/17/22 08:00 09/17/22 08:00 09/17/22 08:00 09/17/22 08:00 09/17/22 08:00 General: Alert, In no apparent distress, Mild distress Respiratory: Diminished (More worse on the right side), Rhonchi/gurgles Cardiovascular: No edema, Regular rate/rhythm, Normal S1 S2 Gastrointestinal: Normal bowel sounds, Soft and benign Musculoskeletal: No clubbing, No swelling - Problems (1) Pleural effusion Current Visit: Yes Status: Acute Plan: Patient is 57 years of age was recently discharged with a Pleurx catheter on the right side readmitted again with worsening effusion currently a Pleurx catheter was clogged is now draining patient has chronic renal failure on dialysis pleural fluid cytology was negative for malignant cells she has slight predominance of lymphocytes otherwise normal LDH and glucose patient's vital signs oxygenation stable have a history of COPD add bronchodilators steroids upright chest x-ray plan for discharge
--- NOTE | 2022-09-17 13:14 | RAD REPORT ---
EXAM DESCRIPTION: RAD - Chest Pa And Lat (2 Views) - 09/17/2022 1:04 pm CLINICAL HISTORY: Pleural effusion Chest pain. COMPARISON: <Comparisons> FINDINGS: Moderate to large right pleural effusion is seen, similar to 09/14/2022 prior study. Tunne led pleural catheter is in place. Small left pleural effusion. Heart size is mildly enlarged. Right-s ided venous catheter tip in the SVC.
[2022-09-17] MEDS: IPRATROPIUM BROM 0.5MG/2.5ML NEB SCH ×2 (14:15→21:18)
[2022-09-17] MEDS: FUROSEMIDE 40 MG TABLET PO SCH (16:37)
--- NOTE | 2022-09-17 17:53 | P.PN ---
Subjective Date of Service: 09/17/22 Chief Complaint: Recurrent Pleural Effusion No acute events overnight. Her pulse oximetry readings have remained stable. Spoke with Dr. Chen regarding her recurrent pleural effusions. He recommended Pulmonology consultation, recommendations appreciated. This morning, she states that her shortness of breath is mildly improved compared to yesterday. She denies any chest pain or palpitations. Review of Systems 10-point ROS is otherwise unremarkable Respiratory: Shortness of Breath Physical Examination - Vital Signs Temperature: 97.9 F Blood Pressure: 135/63 Pulse: 56 Respirations: 16 Pulse Ox (%): 92 - Studies Microbiology Data (last 24 hrs): 09/12/22 17:20 Blood - Blood Aerobic Blood Culture - Final No growth in 5 days. 09/12/22 17:20 Blood - Blood Anaerobic Blood Culture - Final 09/12/22 16:25 Blood - Blood Aerobic Blood Culture - Final No growth in 5 days. 09/12/22 16:25 Blood - Blood Anaerobic Blood Culture - Final Assessment And Plan - Plan - Physical Exam General: Post-rapid response, Alert, In no apparent distress, Oriented x3 HEENT: Atraumatic, Mucous membr. moist/pink, Sclerae nonicteric Neck: JVD not distended Respiratory: Diminished breath sounds in the posterior right lung base, right PleurX catheter in place Cardiovascular: No edema, Regular rate/rhythm, No murmurs Gastrointestinal: Soft, Non-distended, Normoactive, No tenderness Musculoskeletal: No clubbing Integumentary: No rashes Neurological: Normal speech, Normal affect # Acute Hypoxic Respiratory Failure secondary to Recurrent Large Right Pleural Effusion s/p Pleur-X - Evaluation thus far: - CT chest = "large right and small left pleural effusion. Small pneumothorax component on the right may relate to presence of a pleural drainage catheter. Mild ascites and diffuse body wall edema. Findings may relate to fluid overload, please correlate clinically. Geographic central ground-glass opacities and interlobular septal thickening, suggestive of mild pulmonary edema. Moderate cardiomegaly. Healing bilateral rib fractures as above, some of which have segm ental on the right." - Chest x-ray (09/16) = "the bilateral pleural effusions right greater than left again demonstrated. Bibasilar atelectasis. There may be mild interstitial pulmonary edema. Right pneumothorax not clearly visualized. Cardiomegaly. Central venous line in place moderate increase in size of right pleural effusion since comparative study from yesterday. The amount of air in the right pleural space appears diminished." - Management plan: - Consulted Pulmonology - recommendations appreciated - Consulted General Surgery and spoke with Dr. Chen - recommendations appreciated - At discharge, he recommends that she will require fluid replacement (ideally albumin) after the pleural effusion is drained - Will need to determine if she will require long-term dialysis - as vol ume can be replaced during dialysis sessions - Consulted Respiratory Therapy - Supplemental oxygen to maintain SpO2 > 92% - Encouraged incentive spirometry # Type II Diabetes Mellitus - Correction scale insulin # Hyperkalemia with Dialysis Dependence - Nephrology consulted - recommendations appreciated - Monitor urine output - Renally dose medications # Hypothyroidism - TSH 13.8 Free T4 0.98 - Continue home levothyroxine # Hypertension - Continue home carvedilol # Restless Leg Syndrome - Continue home gabapentin, ropinirole Mateo Rodriguez M.D.
[2022-09-17] MEDS: BENZONATATE 100 MG CAP PO PRN (18:01)
[2022-09-17] MEDS: TEMAZEPAM 15 MG CAP PO SCH (21:05)
[2022-09-17] MEDS: GABAPENTIN 100 MG CAP PO SCH (21:05)
[2022-09-18] MEDS: IPRATROPIUM BROM 0.5MG/2.5ML NEB SCH ×4 (02:00→19:45)
[2022-09-18 04:24] LABS: Potassium 5.7 mEq/L (3.5-5.1)
[2022-09-18] MEDS: LEVOTHYROXINE SOD 0.05 MG TABLET PO SCH (05:49)
[2022-09-18] MEDS: INSULIN -REGULAR HUMAN 50 UNIT/0.5 ML ML SQ SCH ×4 (07:30→20:32)
[2022-09-18] MEDS: ARFORMOTEROL TARTRATE 15 MCG/2 ML VIAL.NEB NEB SCH ×2 (08:00→19:45)
[2022-09-18] MEDS: LIDOCAINE 4% PATCH TOP SCH (09:14)
[2022-09-18] MEDS: PANTOPRAZOLE 40MG TABLET PO SCH (09:17)
[2022-09-18] MEDS: SERTRALINE HCL 50 MG TAB PO SCH (09:17)
[2022-09-18] MEDS: ROPINIROLE HCL 1 MG TAB PO SCH ×2 (09:17→20:30)
[2022-09-18] MEDS: predniSONE 20 MG TAB PO SCH ×2 (09:17→20:31)
[2022-09-18] MEDS: FUROSEMIDE 40 MG TABLET PO SCH ×2 (09:17→16:33)
[2022-09-18] MEDS: carvediloL 3.125 MG TAB PO SCH (09:18)
[2022-09-18] MEDS: SODIUM ZIRCONIUM CYCLOSILICATE 10 GM/PKT PO SCH (09:19)
--- NOTE | 2022-09-18 14:58 | P.PN ---
Nephrology note (S) TDC removal postponed earlier in the week, K level remains stubbornly elevated although pt claims to be having BM on the cation exchanger. Overall recorded UOP via Purewick has been low and < 1L despite diuretics. CXR still showing Rt pleural effusion, mod, pt reports Pleurx catheter has not been used/drained in several days. (O) Vitals reviewed in the EMR Gen: Appears chronically ill Resp: b/l air entry, reduced at bases Rt > Lt, Rt pleurx catheter CVS: RRR mostly Abd: Soft, ND, NT Ext: No sig LE edema Neuro: Awake, alert, non focal A/P) 1. Sub-acute HANSA on underlying CKD NOS with reports of (prior) dialysis dependence but off HD for several weeks. Cr level had trended upwards during admission, mod azotemia present, so did hold off on temp dialysis catheter removal Mon. Given muscle mass loss, Cr level is more notable, eGFR calculators may be less reliable. Pt does not appear to be diuresing much and K level remains stubbornly mod elevated so have therefore not yet re-pursued dialysis catheter removal 2. Hyperkalemia, recurrent due to renal impairment, other -strict low K diet, cont cation exchangers with Loklema or Veltassa. Did add low dose thiazide diuretic to her loop. Will add Florinef to see if mineralocorticoid activity helps with any kaliuresis although will need to be cautious given its effects on Na and fluid retention 3. Recurrent right-sided pleural effusion NOS with history of PleurX catheter drain. Latest CXR still with effusions, will ask RN to check with Pulm regarding draining catheter today 4. Anemia secondary to chronic disease, currently stable 5. Chronic CHF unspecified, appears more HFpEF based on echo done end of last mo -BNP > 10K, cont diuretics, response thus far sub optimal. No peripheral edema present but pt still with pleural effusion(s) Thor Amezcua MD, NATHANAEL
[2022-09-18] MEDS: METOLAZONE 2.5 MG TABLET PO SCH (15:02)
[2022-09-18] MEDS: FLUDROCORTISONE 0.1 MG TAB PO SCH (15:46)
[2022-09-18] MEDS: ONDANSETRON 4 MG/2 ML VIAL IV PRN (17:39)
--- NOTE | 2022-09-18 19:54 | P.PN ---
Subjective Date of Service: 09/18/22 Chief Complaint: Recurrent Pleural Effusion No acute events overnight. She appears to be improving clinically. She remains hyperkalemic. From a pleural effusion standpoint, both Dr. Chen and Dr. Brennan agree to her requiring recurrent Pleur-X drainage at home via Home Health, but only 500 mL at a time. However, it is unclear if she will remain on hemodialysis because, in this case, albumin replacement during dialysis would be preferred. Appreciate Nephrology recommendations. She denies any chest pain or palpitations. Review of Systems 10-point ROS is otherwise unremarkable Respiratory: Shortness of Breath (mild) Physical Examination - Vital Signs Temperature: 97.0 F Blood Pressure: 115/58 Pulse: 56 Respirations: 18 Pulse Ox (%): 91 - Studies Microbiology Data (last 24 hrs): 09/12/22 17:20 Blood - Blood Aerobic Blood Culture - Final No growth in 5 days. 09/12/22 17:20 Blood - Blood Anaerobic Blood Culture - Final 09/12/22 16:25 Blood - Blood Aerobic Blood Culture - Final No growth in 5 days. 09/12/22 16:25 Blood - Blood Anaerobic Blood Culture - Final Assessment And Plan - Plan - Physical Exam General: Post-rapid response, Alert, In no apparent distress, Oriented x3 HEENT: Atraumatic, Mucous membr. moist/pink, Sclerae nonicteric Neck: JVD not distended Respiratory: Diminished breath sounds in the posterior right lung base, right PleurX catheter in place Cardiovascular: No edema, Regular rate/rhythm, No murmurs Gastrointestinal: Soft, Non-distended, Normoactive, No tenderness Musculoskeletal: No clubbing Integumentary: No rashes Neurological: Normal speech, Normal affect # Acute Hypoxic Respiratory Failure secondary to Recurrent Large Right Pleural Effusion s/p Pleur-X - Evaluation thus far: - CT chest = "large right and small left pleural effusion. Small pneumothorax component on the right may relate to presence of a pleural drainage catheter. Mild ascites and diffuse body wall edema. Findings may relate to fluid overload, please correlate clinically. Geographic central ground-glass opacities and interlobular septal thickening, suggestive of mild pulmonary edema. Moderate cardiomegaly. Healing bilateral rib fractures as above, some of which have segmental on the right." - Chest x-ray (09/16) = "the bilateral pleural effusions right greater than left again demonstrated. Bibasilar atelectasis. There may be mild interstitial pulmonary edema. Right pneumothorax not clearly visualized. Cardiomegaly. Central venous line in place moderate increase in size of right pleural effusion since comparative study from yesterday. The amount of air in the right pleural space appears diminished." - Management plan: - Consulted Pulmonology and spoke with Dr. Brennan - recommendations appreciated - He has cleared her for discharge with periodic outpatient Pleur-X drainage (500 mL at a time) - Consulted General Surgery and spoke with Dr. Chen - recommendations appreciated - At discharge, he recommends that she will require fluid replacement (ideally albumin) after the pleural effusion is drained - Will need to determine if she will require long-term dialysis - as volume can be replaced during dialysis sessions - Consulted Respiratory Therapy - Supplemental oxygen to maintain SpO2 > 92% - Encouraged incentive spirometry # Type II Diabetes Mellitus - Correction scale insulin # Hyperkalemia with Dialysis Dependence - Nephrology consulted and spoke with Dr. Amezcua- recommendations appreciated - Monitor urine output - Renally dose medications # Hypothyroidism - TSH 13.8 Free T4 0.98 - Continue home levothyroxine # Hypertension - Continue home carvedilol # Restless Leg Syndrome - Continue home gabapentin, ropinirole Mateo Rodriguez M.D.
[2022-09-18] MEDS: GABAPENTIN 100 MG CAP PO SCH (20:30)
[2022-09-18] MEDS: TEMAZEPAM 15 MG CAP PO SCH (20:30)
[2022-09-19] MEDS: IPRATROPIUM BROM 0.5MG/2.5ML NEB SCH ×4 (02:00→19:25)
[2022-09-19 04:03] LABS: Potassium 5.6 mEq/L (3.5-5.1)
[2022-09-19] MEDS: LEVOTHYROXINE SOD 0.05 MG TABLET PO SCH (05:18)
[2022-09-19] MEDS: ARFORMOTEROL TARTRATE 15 MCG/2 ML VIAL.NEB NEB SCH ×2 (08:00→19:25)
[2022-09-19] MEDS: ROPINIROLE HCL 1 MG TAB PO SCH (09:14)
[2022-09-19] MEDS: FLUDROCORTISONE 0.1 MG TAB PO SCH (09:14)
[2022-09-19] MEDS: LIDOCAINE 4% PATCH TOP SCH (09:14)
[2022-09-19] MEDS: FUROSEMIDE 40 MG TABLET PO SCH ×2 (09:15→17:33)
[2022-09-19] MEDS: predniSONE 20 MG TAB PO SCH ×2 (09:15→20:54)
[2022-09-19] MEDS: PANTOPRAZOLE 40MG TABLET PO SCH (09:15)
[2022-09-19] MEDS: INSULIN -REGULAR HUMAN 50 UNIT/0.5 ML ML SQ SCH ×4 (09:15→21:00)
[2022-09-19] MEDS: SERTRALINE HCL 50 MG TAB PO SCH (09:15)
[2022-09-19] MEDS: SODIUM ZIRCONIUM CYCLOSILICATE 10 GM/PKT PO SCH (09:22)
[2022-09-19 13:19] LABS: Arterial Blood Carboxyhemoglob 1.2 % (0-1.5); Blood Gas Oxyhemoglobin 91.9 % (94-97); Blood O2 Saturation 94.4 % (92-98.5)
--- NOTE | 2022-09-19 13:49 | RAD REPORT ---
EXAM DESCRIPTION: RAD - Chest Single View - 09/19/2022 1:26 pm CLINICAL HISTORY: pleural effusion Chest pain. COMPARISON: Chest Pa And Lat (2 Views) dated 09/17/2022; Chest Single View dated 09/16/2022; Chest Singl e View dated 09/14/2022; Chest Single View dated 09/13/2022 FINDINGS: Portable technique limits examination quality. Mild pulmonary edema is suspected. Trace left and moderate right pleural effusion. The heart is upper limit normal in size. Right-sided venous catheter its tip in the SVC. IMPRESSION: Moderate volume overload pattern seen. Findings appear similar to prior study.
[2022-09-19 14:25] LABS: Hepatitis B Core Ab, Total Nonreactive (Nonreactive)
[2022-09-19 14:26] LABS: Hepatitis B Surface Ab - Quant < 3.10 mIU/mL (<8.0)
[2022-09-19] MEDS ORDERED: ALBUMIN HUMAN 25% 100 ML IV ONE (15:33)
--- NOTE | 2022-09-19 16:13 | P.PN ---
Nephrology note (S) UOP has remained low, K level remains mod elevated, no downward trend in BUN, Cr levels so did proceed with HD today, pt seen on HD, a bit lethargic and BP did trend lower so initial modest UF goal held, 300 cc saline bolus given./ (O) Vitals reviewed in the EMR Gen: Appears chronically ill Resp: b/l air entry, reduced at bases Rt > Lt, Rt pleurx catheter CVS: branden but regular Abd: Soft, ND, NT Ext: No sig LE edema Neuro: Lethargic but awakens easily, responds slowly but appropriately A/P) 1. Sub-acute HANSA on underlying CKD NOS with reports of (prior) dialysis dependence but off HD for several weeks. Cr level had trended upwards during admission, mod azotemia present, so did hold off on temp dialysis catheter removal Mon. Given muscle mass loss, Cr level is more notable, eGFR calculators may be less reliable. Pt has failed to diurese (recorded UOP via Purewick has been low at times) and K level remains stubbornly mod elevated so have therefore not yet re-pursued dialysis catheter removal and today in fact did proceed with HD. May have to consider re-placing in center for reduced freq HD 2x/week 2. Hyperkalemia, recurrent due to renal impairment, other -has persisted despite several measures -will address with HD and low K bath 3. Recurrent right-sided pleural effusion NOS with history of PleurX catheter drain. Latest CXR still with effusions, will ask RN to check with Pulm regarding draining catheter 4. Anemia secondary to chronic disease, currently stable 5. Chronic CHF unspecified, appears more HFpEF based on echo done end of last mo -BNP however > 10K, response to PO diuretics has been sub-optimal. No peripheral edema present but pt still with pleural effusion(s) Thor Amezcua MD, NATHANAEL
--- NOTE | 2022-09-19 19:52 | P.PN ---
Subjective Date of Service: 09/19/22 Chief Complaint: Recurrent Pleural Effusion No acute events overnight. Her hyperkalemia has been persistent. Per Nephrology, plan to proceed with hemodialysis today. Unclear long-term dialysis plan at this time. Her shortness of breath is mild. She denies any chest pain or palpitations. Review of Systems 10-point ROS is otherwise unremarkable Respiratory: Shortness of Breath Physical Examination - Vital Signs Temperature: 96.4 F Blood Pressure: 110/59 Pulse: 53 Respirations: 18 Pulse Ox (%): 96 Assessment And Plan - Plan - Physical Exam General: Alert, In no apparent distress, Oriented x3 HEENT: Atraumatic, Mucous membr. moist/pink, Sclerae nonicteric Neck: JVD not distended Respiratory: Diminished breath sounds in the posterior right lung base, right PleurX catheter in place Cardiovascular: No edema, Regular rate/rhythm, No murmurs Gastrointestinal: Soft, Non-distended, Normoactive, No tenderness Musculoskeletal: No clubbing Integumentary: No rashes Neurological: Normal speech, Normal affect # Acute Hypoxic Respiratory Failure secondary to Recurrent Large Right Pleural Effusion s/p Pleur-X - Evaluation thus far: - CT chest = "large right and small left pleural effusion. Small pneumothorax component on the right may relate to presence of a pleural drainage catheter. Mild ascites and diffuse body wall edema. Findings may relate to fluid overload, please correlate clinically. Geographic central ground-glass opacities and interlobular septal thickening, suggestive of mild pulmonary edema. Moderate cardiomegaly. Healing bilateral rib fractures as above, some of which have segmental on the right." - Chest x-ray (09/16) = "the bilateral pleural effusions right greater than left again demonstrated. Bibasilar atelectasis. There may be mild interstitial pulmonary edema. Right pneumothorax not clearly visualized. Cardiomegaly. Central venous line in place moderate increase in size of right pleural effusion since comparative study from yesterday. The amount of air in the right pleural space appears diminished." - Chest x-ray (09/17) = "moderate to large right pleural effusion is seen, similar to 09/14/2022 prior study. Tunneled pleural catheter is in place. Small left pleural effusion. Heart size is mildly enlarged. Right-sided venous catheter tip in the SVC" - Management plan: - Consulted Pulmonology and spoke with Dr. Brennan - recommendations appreciated - He has cleared her for discharge with periodic outpatient Pleur-X drainage (500 mL at a time) - Consulted General Surgery and spoke with Dr. Chen - recommendations appreciated - At discharge, he recommends that she will require fluid replacement (ideally albumin) after the pleural effusion is drained - Will need to determine if she will require long-term dialysis - as volume can be replaced during dialysis sessions - Consulted Respiratory Therapy - Supplemental oxygen to maintain SpO2 > 92% - Encouraged incentive spirometry # Hyperglycemia in Type II Diabetes Mellitus - Correction scale insulin # Hyperkalemia with Dialysis Dependence - Nephrology consulted and spoke with Dr. Amezcua- recommendations appreciated - Plan for hemodialysis today - Monitor urine output - Renally dose medications # Hypothyroidism - TSH 13.8 Free T4 0.98 - Continue home levothyroxine # Hypertension - Continue home carvedilol # Restless Leg Syndrome - Continue home gabapentin, ropinirole Mateo Rodriguez M.D.
[2022-09-19] MEDS: GABAPENTIN 100 MG CAP PO SCH (20:54)
[2022-09-19] MEDS: TEMAZEPAM 15 MG CAP PO SCH (21:31)
[2022-09-20] MEDS: IPRATROPIUM BROM 0.5MG/2.5ML NEB SCH ×4 (02:00→19:10)
[2022-09-20] MEDS: LEVOTHYROXINE SOD 0.05 MG TABLET PO SCH (05:54)
[2022-09-20 07:07] LABS: Absolute Lymphocytes (CBC) 0.4 K/uL (0.7-4.9); Hematocrit 38.3 % (36.0-45.0); Lymphocytes % 8.1 % (15.3-44.8); MCV 89.6 fL (80-100); MPV 8.2 fL (7.6-11.3); RBC Red Blood Cell Count 4.28 M/uL (3.86-4.86)
[2022-09-20 07:16] LABS: Potassium 4.5 mEq/L (3.5-5.1)
[2022-09-20] MEDS: ARFORMOTEROL TARTRATE 15 MCG/2 ML VIAL.NEB NEB SCH ×2 (08:30→19:10)
[2022-09-20] MEDS: SODIUM ZIRCONIUM CYCLOSILICATE 10 GM/PKT PO SCH (09:00)
[2022-09-20] MEDS: FUROSEMIDE 40 MG TABLET PO SCH ×2 (09:23→17:40)
[2022-09-20] MEDS: SERTRALINE HCL 50 MG TAB PO SCH (09:23)
[2022-09-20] MEDS: LIDOCAINE 4% PATCH TOP SCH (09:23)
[2022-09-20] MEDS: PANTOPRAZOLE 40MG TABLET PO SCH (09:24)
[2022-09-20] MEDS: predniSONE 20 MG TAB PO SCH ×2 (09:24→20:41)
[2022-09-20] MEDS: INSULIN -REGULAR HUMAN 50 UNIT/0.5 ML ML SQ SCH ×4 (09:24→20:45)
[2022-09-20] MEDS: ROPINIROLE HCL 1 MG TAB PO SCH ×3 (09:24→20:43)
[2022-09-20 10:20] LABS: Blood Morphology Comment NOT SEEN (NOT SEEN); Platelet Estimate ADEQ; White Blood Cell Scan OK (OK)
[2022-09-20] MEDS: METOLAZONE 2.5 MG TABLET PO SCH (13:45)
--- NOTE | 2022-09-20 15:11 | P.PN ---
Subjective Date of Service: 09/20/22 Chief Complaint: Recurrent Pleural Effusion No acute events overnight. She underwent hemodialysis yesterday, and tolerated it well. I spoke with Dr. Amezcua - he feels that reinitiation of hemodialysis twice weekly would be the best course of action. Appreciate case management assistance with arrangement of an outpatient dialysis chair. She denies any chest pain, shortness of breath, or palpitations. Review of Systems 10-point ROS is otherwise unremarkable Respiratory: Shortness of Breath (minimal) Physical Examination - Vital Signs Temperature: 97.7 F Blood Pressure: 147/73 Pulse: 64 Respirations: 18 Pulse Ox (%): 95 Assessment And Plan - Plan - Physical Exam General: Alert, In no apparent distress, Oriented x3 HEENT: Atraumatic, Mucous membr. moist/pink, Sclerae nonicteric Neck: JVD not distended Respiratory: Diminished breath sounds in the posterior right lung base, right PleurX catheter in place Cardiovascular: No edema, Regular rate/rhythm, No murmurs Gastrointestinal: Soft, Non-distended, Normoactive, No tenderness Musculoskeletal: No clubbing Integumentary: No rashes Neurological: Normal speech, Normal affect # Acute Hypoxic Respiratory Failure secondary to Recurrent Large Right Pleural Effusion s/p Pleur-X - Evaluation thus far: - CT chest = "large right and small left pleural effusion. Small pneumothorax component on the right may relate to presence of a pleural drainage catheter. Mild ascites and diffuse body wall edema. Findings may relate to fluid overload, please correlate clinically. Geographic central ground-glass opacities and inter lobular septal thickening, suggestive of mild pulmonary edema. Moderate cardiomegaly. Healing bilateral rib fractures as above, some of which have segmental on the right." - Chest x-ray (09/16) = "the bilateral pleural effusions right greater than left again demonstrated. Bibasilar atelectasis. There may be mild interstitial pulmonary edema. Right pneumothorax not clearly visualized. Cardiomegaly. Central venous line in place moderate increase in size of right pleural effusion since comparative study from yesterday. The amount of air in the right pleural space appears diminished." - Chest x-ray (09/17) = "moderate to large right pleural effusion is seen, similar to 09/14/2022 prior study. Tunneled pleural catheter is in place. Small left pleural effusion. Heart size is mildly enlarged. Right-sided venous catheter tip in the SVC" - Chest x-ray (09/19) = "moderate volume overload pattern seen. Findings appear similar to prior study." - Management plan: - Consulted Pulmonology and spoke with Dr. Brennan - recommendations appreciated - He has cleared her for discharge with periodic outpatient Pleur-X drainage (500 mL at a time) - Consulted General Surgery and spoke with Dr. Chen - recommendations appreciated - At discharge, he recommends that she will require fluid replacement (ideally albumin) after the pleural effusion is drained - Consulted Respiratory Therapy - Supplemental oxygen to maintain SpO2 > 92% - Encouraged incentive spirometry # Hyperglycemia in Type II Diabetes Mellitus - Correction scale insulin # Hyperkalemia with Dialysis Dependence - Nephrology consulted and spoke with Dr. Amezcua- recommendations appreciated - Plan to re-initiate outpatient hemodialysis twice per week - appreciate CM assistance with securing outpatient dialysis chair - Monitor urine output - Renally dose medications # Hypothyroidism - TSH 13.8 Free T4 0.98 - Continue home levothyroxine # Hypertension - Continue home carvedilol # Restless Leg Syndrome - Continue home gabapentin, ropinirole Mateo Rodriguez M.D.
[2022-09-20] MEDS: GABAPENTIN 100 MG CAP PO SCH (20:41)
[2022-09-20] MEDS: TEMAZEPAM 15 MG CAP PO SCH (20:44)
--- NOTE | 2022-09-20 20:48 | P.PN ---
Nephrology note (S) UOP has remained low, 24h CrCl confirmed low reading, dialyzed yesterday, pt reports feeling better overall, pleural catheter last drained on fri, cxr yesterday overall unchanged (O) Vitals reviewed in the EMR Gen: Appears chronically ill Resp: b/l air entry, reduced at bases Rt > Lt, Rt pleurx catheter CVS: branden but regular Abd: Soft, ND, NT Ext: No sig LE edema Neuro: Less lethargic today, more awake, alert A/P) 1. Sub-acute HANSA on underlying CKD NOS with reports of (prior) dialysis dependence but off HD for several weeks. Cr level had trended upwards during admission, mod azotemia present, so did hold off on temp dialysis catheter removal Mon. Given muscle mass loss, Cr level is more notable, eGFR calculators may be less reliable. Pt has failed to diurese (recorded UOP via Purewick has been low at times) and K level remained stubbornly mod elevated so have therefore not yet re-pursued dialysis catheter removal and yesterday did in fact did proceed with HD. Discussed with pt today re-placing in center for reduced freq HD 2x/week in ARF status and pt is agreeable. Will consult CM 2. Hyperkalemia, recurrent due to renal impairment, other -has persisted despite several measures -improved post HD, pt refusing Lokelma today so will d/c for now 3. Recurrent right-sided pleural effusion NOS with history of PleurX catheter drain. Latest CXR still with effusions, continue intermittently draining catheter 4. Anemia secondary to chronic disease, currently stable 5. Chronic CHF unspecified, appears more HFpEF based on echo done end of last mo -BNP however > 10K, response to PO diuretics had been sub-optimal. No peripheral edema present but pt still with pleural effusion(s). UF on HD yesterday limited by low BP Thor Amezcua MD, NATHANAEL
[2022-09-20] MEDS: BENZONATATE 100 MG CAP PO PRN (20:54)
[2022-09-21] MEDS: IPRATROPIUM BROM 0.5MG/2.5ML NEB SCH ×4 (01:15→20:01)
[2022-09-21] MEDS: LEVOTHYROXINE SOD 0.05 MG TABLET PO SCH (06:36)
[2022-09-21 07:39] LABS: Potassium 4.9 mEq/L (3.5-5.1)
[2022-09-21] MEDS: ARFORMOTEROL TARTRATE 15 MCG/2 ML VIAL.NEB NEB SCH ×2 (07:45→20:01)
[2022-09-21] MEDS ORDERED: SODIUM ZIRCONIUM CYCLOSILICATE 10 GM/PKT PO SCH (09:00)
[2022-09-21] MEDS: INSULIN -REGULAR HUMAN 50 UNIT/0.5 ML ML SQ SCH ×4 (09:21→20:46)
[2022-09-21] MEDS: FUROSEMIDE 40 MG TABLET PO SCH ×2 (09:22→17:09)
[2022-09-21] MEDS: carvediloL 3.125 MG TAB PO SCH ×2 (09:22→17:10)
[2022-09-21] MEDS: ROPINIROLE HCL 1 MG TAB PO SCH (09:22)
[2022-09-21] MEDS: LIDOCAINE 4% PATCH TOP SCH (09:22)
[2022-09-21] MEDS: predniSONE 20 MG TAB PO SCH ×2 (09:22→20:42)
[2022-09-21] MEDS: PANTOPRAZOLE 40MG TABLET PO SCH (09:22)
[2022-09-21] MEDS: SERTRALINE HCL 50 MG TAB PO SCH (09:23)
--- NOTE | 2022-09-21 12:31 | P.PN ---
Subjective Date of Service: 09/21/22 Chief Complaint: Recurrent Pleural Effusion No acute events overnight. She denies any change in symptoms this morning. Blood pressure was elevated this morning to 169/90. Restarted home carvedilol. She is pending outpatient dialysis chair placement prior to discharge. Appreciate case management assistance. She denies any chest pain, shortness of breath, or palpitations. Review of Systems 10-point ROS is otherwise unremarkable Physical Examination - Vital Signs Temperature: 97.9 F Blood Pressure: 154/81 Pulse: 73 Respirations: 16 Pulse Ox (%): 100 Assessment And Plan - Plan - Physical Exam General: Alert, In no apparent distress, Oriented x3 HEENT: Atraumatic, Mucous membr. moist/pink, Sclerae nonicteric Neck: JVD not distended Respiratory: Diminished breath sounds in the posterior right lung base, right PleurX catheter in place Cardiovascular: No edema, Regular rate/rhythm, No murmurs Gastrointestinal: Soft, Non-distended, Normoactive, No tenderness Musculoskeletal: No clubbing Integumentary: No rashes Neurological: Normal speech, Normal affect # Acute Hypoxic Respiratory Failure secondary to Recurrent Large Right Pleural Effusion s/p Pleur-X - Evaluation thus far: - CT chest = "large right and small left pleural effusion. Small pneumothorax component on the right may relate to presence of a pleural drainage catheter. Mild ascites and diffuse body wall edema. Findings may relate to fluid overload, please correlate clinically. Geographic central ground-glass opacities and interlobular septal thickening, suggestive of mild pulmonary edema. Moderate cardiomegaly. Healing bilateral rib fractures as above, some of which have segmental on the right." - Chest x-ray (09/16) = "the bilateral pleural effusions right greater than left again demonstrated. Bibasilar atelectasis. There may be mild interstitial pulmonary edema. Right pneumothorax not clearly visualized. Cardiomegaly. Central venous line in place moderate increase in size of right pleural effusion since comparative study from yesterday. The amount of air in the right pleural space appears diminished." - Chest x-ray (09/17) = "moderate to large right pleural effusion is seen, similar to 09/14/2022 prior study. Tunneled pleural catheter is in place. Small left pleural effusion. Heart size is mildly enlarged. Right-sided venous catheter tip in the SVC" - Chest x-ray (09/19) = "moderate volume overload pattern seen. Findings appear similar to prior study." - Management plan: - Consulted Pulmonology and spoke with Dr. Brennan - recommendations appreciated - He has cleared her for discharge with periodic outpatient Pleur-X drainage (500 mL at a time) - Consulted General Surgery and spoke with Dr. Chen - recommendations appreciated - At discharge, he recommends that she will require fluid replacement (ideally albumin) after the pleural effusion is drained - Consulted Respiratory Therapy - Supplemental oxygen to maintain SpO2 > 92% - Encouraged incentive spirometry # Hyperglycemia in Type II Diabetes Mellitus - Correction scale insulin # Hyperkalemia with Dialysis Dependence - Nephrology consulted and spoke with Dr. Amezcua- recommendations appreciated - Plan to re-initiate outpatient hemodialysis twice per week - appreciate CM assistance with securing outpatient dialysis chair - Monitor urine output - Renally dose medications # Hypothyroidism - TSH 13.8 Free T4 0.98 - Continue home levothyroxine # Hypertension - Continue home carvedilol # Restless Leg Syndrome - Continue home gabapentin, ropinirole Updates: 09/21/2022: Adjusting anti-hypertensive regimen. Discharge pending outpatient dialysis chair arrangement. CM assistance appreciated. Mateo Rodriguez M.D.
--- NOTE | 2022-09-21 15:24 | P.PN ---
Nephrology note (S) UOP has remained low, 24h CrCl confirmed low reading, dialyzed last on . No acute complaints, pleural catheter last drained Wed (O) Vitals reviewed in the EMR Gen: Appears chronically ill Resp: b/l air entry, reduced at bases Rt > Lt, Rt pleurx catheter CVS: branden but regular Abd: Soft, ND, NT Ext: No sig LE edema Neuro: Less lethargic today, more awake, alert A/P) 1. Sub-acute HANSA on underlying CKD NOS with reports of (prior) dialysis dependence but off HD for several weeks. Cr level had trended upwards during admission, mod azotemia present, so did hold off on temp dialysis catheter removal Mon. Given muscle mass loss, Cr level is more notable, eGFR calculators may be less reliable. Pt has failed to diurese (recorded UOP via Purewick has been low at times) and K level remained stubbornly mod elevated so have therefore not yet re-pursued dialysis catheter removal and did in fact did proceed with HD. Discussed with pt re-placing in center for reduced freq HD 2x/week in ARF status and pt is agreeable. Did consult CM. Next HD will be Mon 2. Hyperkalemia, recurrent due to renal impairment, other -has persisted despite several measures -improved post HD, pt refusing Lokelma so did d/c for now 3. Recurrent right-sided pleural effusion NOS with history of PleurX catheter drain. Latest CXR still with effusions, continue intermittently draining catheter, cap fluid drainage at 500 cc 4. Anemia secondary to chronic disease, currently stable 5. Chronic CHF unspecified, appears more HFpEF based on echo done end of last mo -BNP however > 10K, response to PO diuretics had been sub-optimal. No peripheral edema present but pt still with pleural effusion(s). UF on HD limited by low BP, will monitor closely Thor Amezcua MD, NATHANAEL
[2022-09-21] MEDS: GABAPENTIN 100 MG CAP PO SCH (20:42)
[2022-09-21] MEDS: BENZONATATE 100 MG CAP PO PRN (20:42)
[2022-09-21] MEDS: TEMAZEPAM 15 MG CAP PO SCH (21:00)
[2022-09-22] MEDS: IPRATROPIUM BROM 0.5MG/2.5ML NEB SCH ×4 (01:52→20:00)
[2022-09-22] MEDS: LEVOTHYROXINE SOD 0.05 MG TABLET PO SCH (05:50)
[2022-09-22] MEDS: carvediloL 3.125 MG TAB PO SCH ×2 (05:50→17:33)
[2022-09-22 07:21] LABS: Potassium 4.6 mEq/L (3.5-5.1)
[2022-09-22] MEDS: ARFORMOTEROL TARTRATE 15 MCG/2 ML VIAL.NEB NEB SCH ×2 (07:40→20:00)
[2022-09-22] MEDS: predniSONE 20 MG TAB PO SCH (08:27)
[2022-09-22] MEDS: INSULIN -REGULAR HUMAN 50 UNIT/0.5 ML ML SQ SCH ×4 (08:27→21:00)
[2022-09-22] MEDS: SERTRALINE HCL 50 MG TAB PO SCH (08:28)
[2022-09-22] MEDS: PANTOPRAZOLE 40MG TABLET PO SCH (08:28)
[2022-09-22] MEDS: FUROSEMIDE 40 MG TABLET PO SCH ×2 (08:28→17:34)
[2022-09-22] MEDS: LIDOCAINE 4% PATCH TOP SCH (08:28)
--- NOTE | 2022-09-22 12:47 | P.PN ---
Subjective Date of Service: 09/22/22 Chief Complaint: Recurrent Pleural Effusion No acute events overnight. She denies any change in symptoms this morning. Her glucose was elevated this morning to 448. Treated with SQ insulin. She is pending outpatient dialysis chair placement prior to discharge. Appreciate case management assistance. She denies any chest pain, shortness of breath, or palpitations. Review of Systems 10-point ROS is otherwise unremarkable General: Weakness (generalized) Physical Examination - Vital Signs Temperature: 97.5 F Blood Pressure: 160/92 Pulse: 74 Respirations: 17 Pulse Ox (%): 97 Assessment And Plan - Plan - Physical Exam General: Alert, In no apparent distress, Oriented x3 HEENT: Atraumatic, Mucous membr. moist/pink, Sclerae nonicteric Neck: JVD not distended Respiratory: Diminished breath sounds in the posterior right lung base, right PleurX catheter in place Cardiovascular: No edema, Regular rate/rhythm, No murmurs Gastrointestinal: Soft, Non-distended, Normoactive, No tenderness Musculoskeletal: No clubbing Integumentary: No rashes Neurological: Normal speech, Normal affect # Acute Hypoxic Respiratory Failure secondary to Recurrent Large Right Pleural Effusion s/p Pleur-X - Evaluation thus far: - CT chest = "large right and small left pleural effusion. Small pneumothorax component on the right may relate to presence of a pleural drainage catheter. Mild ascites and diffuse body wall edema. Findings may relate to fluid overload, please correlate clinically. Geographic central ground-glass opacities and interlobular septal thickening, suggestive of mild pulmonary edema. Moderate cardiomegaly. Healing bilateral rib fractures as above, some of which have segmental on the right." - Chest x-ray (09/16) = "the bilateral pleural effusions right greater than l eft again demonstrated. Bibasilar atelectasis. There may be mild interstitial pulmonary edema. Right pneumothorax not clearly visualized. Cardiomegaly. Central venous line in place moderate increase in size of right pleural effusion since comparative study from yesterday. The amount of air in the right pleural space appears diminished." - Chest x-ray (09/17) = "moderate to large right pleural effusion is seen, similar to 09/14/2022 prior study. Tunneled pleural catheter is in place. Small left pleural effusion. Heart size is mildly enlarged. Right-sided venous catheter tip in the SVC" - Chest x-ray (09/19) = "moderate volume overload pattern seen. Findings appear similar to prior study." - Management plan: - Consulted Pulmonology and spoke with Dr. Brennan - recommendations appreciated - He has cleared her for discharge with periodic outpatient Pleur-X drainage (500 mL at a time) - Plan to drain 500 mL today - Consulted General Surgery and spoke with Dr. Chen - recommendations appreciated - At discharge, he recommends that she will require fluid replacement (ideally albumin) after the pleural effusion is drained - Consulted Respiratory Therapy - Supplemental oxygen to maintain SpO2 > 92% - Encouraged incentive spirometry # Hyperglycemia in Type II Diabetes Mellitus - Correction scale insulin # Hyperkalemia with Dialysis Dependence - Nephrology consulted and spoke with Dr. Amezcua- recommendations appreciated - Plan to re-initiate outpatient hemodialysis twice per week - appreciate CM assistance with securing outpatient dialysis chair - Monitor urine output - Renally dose medications # Hypothyroidism - TSH 13.8 Free T4 0.98 - Continue home levothyroxine # Hypertension - Continue home carvedilol # Restless Leg Syndrome - Continue home gabapentin, ropinirole Updates: 09/21/2022: Adjusting anti-hypertensive regimen. Discharge pending outpatient dialysis chair arrangement. CM assistance appreciated. 09/22/2022: Hyperglycemia on morning labs. Treated with SQ insulin. Plan to drain 500 mL from Pleur-X today. Discharge pending outpatient dialysis chair arrangement. CM assistance appreciated. Mateo Rodriguez M.D.
--- NOTE | 2022-09-22 16:19 | P.PN ---
Date of Service: 09/22/22 Patient has no new complaints - continue medical mangement - will sign off for now, - patient can follow up with me after discharge to discuss managmenet of pleurX or removal of HD catheter if appropriate - call back with any concerns
[2022-09-22] MEDS: GABAPENTIN 100 MG CAP PO SCH (20:22)
[2022-09-22] MEDS: BENZONATATE 100 MG CAP PO PRN (20:23)
[2022-09-22] MEDS: TEMAZEPAM 15 MG CAP PO SCH (22:31)
[2022-09-23] MEDS: IPRATROPIUM BROM 0.5MG/2.5ML NEB SCH ×5 (01:45→20:00)
[2022-09-23 03:52] LABS: Potassium 4.4 mEq/L (3.5-5.1)
[2022-09-23] MEDS: carvediloL 3.125 MG TAB PO SCH ×2 (05:53→17:06)
[2022-09-23] MEDS: LEVOTHYROXINE SOD 0.05 MG TABLET PO SCH (05:54)
[2022-09-23] MEDS: INSULIN -REGULAR HUMAN 50 UNIT/0.5 ML ML SQ SCH ×4 (07:30→20:30)
[2022-09-23] MEDS: ARFORMOTEROL TARTRATE 15 MCG/2 ML VIAL.NEB NEB SCH ×3 (08:00→20:00)
[2022-09-23] MEDS: ROPINIROLE HCL 1 MG TAB PO SCH (08:14)
[2022-09-23] MEDS: LIDOCAINE 4% PATCH TOP SCH (08:14)
[2022-09-23] MEDS: PANTOPRAZOLE 40MG TABLET PO SCH (08:14)
[2022-09-23] MEDS: FUROSEMIDE 40 MG TABLET PO SCH ×2 (08:14→17:06)
[2022-09-23] MEDS: SERTRALINE HCL 50 MG TAB PO SCH (08:14)
[2022-09-23] MEDS ORDERED: GLUCAGON 1 MG/VIAL IM PRN (08:35)
[2022-09-23] MEDS ORDERED: D50W 25 GM/50 ML SYRINGE IV PRN (08:35)
[2022-09-23] MEDS ORDERED: INSULIN 70/30 100 UNITS/ML SQ ONE (08:36)
[2022-09-23] MEDS ORDERED: D10W 125 ML IV PRN (08:44)
--- NOTE | 2022-09-23 14:10 | P.PN ---
Nephrology note (S) UOP no longer as low but discussed case with pt and Dr. Diego her primary Fisheries Inspector and decided it would be safer to continue OP HD in reduced freq or duration to ensure labs and fluid status remain stable and will re-assess over the following weeks, CrCl which was quite low when checked end of last week although oliguric then (O) Vitals reviewed in the EMR Gen: Appears chronically ill Resp: b/l air entry, reduced at bases Rt > Lt, Rt pleurx catheter. LFNC present CVS: branden but regular Abd: Soft, ND, NT Ext: No sig LE edema Neuro: Awake, alert, oriented, non focal A/P) 1. Sub-acute HANSA on underlying CKD NOS with reports of (prior) dialysis dependence but off HD for several weeks. Cr level had trended upwards during admission, mod azotemia present, so did hold off on temp dialysis catheter removal last Mon. Given muscle mass loss, Cr level is more notable, eGFR calculators may be less reliable. Pt had initially failed to diurese (recorded UOP via Purewick has been low at times) and K level last week initially remained stubbornly mod elevated so had therefore not yet re-pursued dialysis catheter removal and Thurs did in fact did proceed with HD. 24h CrCl done end of last week was quite low but UOP collected for it was only 400 cc. Discussed with pt re-placing in center for reduced freq HD 2x/week in ARF status and pt is agreeable. Did consult CM. Pt now producing more urine but based on latest labs and as mentioned above, will cont with current plan and re-assess 24h urine CrCl in a few weeks. 2. Hyperkalemia, recurrent due to renal impairment, other -has persisted despite several measures -improved/resolved post HD, pt refusing Lokelma so did d/c for now 3. Recurrent right-sided pleural effusion NOS with history of PleurX catheter drain. Latest CXR still with effusions, continue intermittently draining catheter, cap fluid drainage at 500 cc. Will have HH assist with this, perform drainage on non HD days 4. Anemia secondary to chronic disease, currently stable 5. Chronic CHF unspecified, appears more HFpEF based on echo done end of last mo -BNP however > 10K, response to PO diuretics initially had been sub-optimal but now diuresing better. No peripheral edema present but pt still with pleural effusion(s). UF on HD limited by low BP, will monitor closely, will order Midodrine for use prior to HD Thor Amezcua MD, NATHANAEL
[2022-09-23] MEDS: TEMAZEPAM 15 MG CAP PO SCH (20:27)
[2022-09-23] MEDS: GABAPENTIN 100 MG CAP PO SCH (20:27)
[2022-09-24] MEDS: IPRATROPIUM BROM 0.5MG/2.5ML NEB SCH ×4 (02:00→20:00)
--- NOTE | 2022-09-24 05:46 | P.PN ---
Date of Service: 09/23/22 Subjective Patient states she is feeling better. Waiting for chair time for hemodialysis. Also will get with nephrology to schedule pleural effusion removal prior to dialysis. Physical Examination - Vital Signs Reviewed - Physical Exam General: Alert, In no apparent distress, Oriented x3 Respiratory: Diminished breath sounds in the posterior right lung base, right PleurX catheter in place; to right chest wall Cardiovascular: No edema, Regular rate/rhythm, No murmurs Gastrointestinal: Soft, Non-distended, Normoactive, No tenderness Musculoskeletal: No clubbing Neurological: No focal deficits Assessment And Plan -Assessment/Plan # Acute Hypoxic Respiratory Failure secondary to Recurrent Large Right Pleural Effusion s/p Pleur-X - Evaluation thus far: - CT chest = "large right and small left pleural effusion. Small pneumothorax component on the right may relate to presence of a pleural drainage catheter. Mild ascites and diffuse body wall edema. Findings may relate to fluid overload, please correlate clinically. Geographic central ground-glass opacities and interlobular septal thickening, suggestive of mild pulmonary edema. Moderate cardiomegaly. Healing bilateral rib fractures as above, some of which have segmental on the right." - Chest x-ray (09/16) = "the bilateral pleural effusions right greater than left again demonstrated. Bibasilar atelectasis. There may be mild interstitial pulmonary edema. Right pneumothorax not clearly visualized. Cardiomegaly. Central venous line in place moderate increase in size of right pleural effusion since comparative study from yesterday. The amount of air in the right pleural space appears diminished." - Chest x-ray (09/17) = "moderate to large right pleural effusion is seen, similar to 09/14/2022 prior study. Tunneled pleural catheter is in place. Small left pleural effusion. Heart size is mildly enlarged. Right-sided venous catheter tip in the SVC" - Chest x-ray (09/19) = "moderate volume overload pattern seen. Findings appear similar to prior study." - Management plan: - Consulted Pulmonology and spoke with Dr. Brennan - recommendations appreciated - He has cleared her for discharge with periodic outpatient Pleur-X drainage (500 mL at a time) - Plan to drain 500 mL today - Consulted General Surgery and spoke with Dr. Chen - recommendations appreciated - At discharge, he recommends that she will require fluid replacement (ideally albumin) after the pleural effusion is drained - Consulted Respiratory Therapy - Supplemental oxygen to maintain SpO2 > 92% - Encouraged incentive spirometry # Hyperglycemia in Type II Diabetes Mellitus - Correction scale insulin # Hyperkalemia with Dialysis Dependence - Nephrology consulted and spoke with Dr. Amezcua- recommendations appreciated - Plan to re-initiate outpatient hemodialysis twice per week - appreciate CM assistance with securing outpatient dialysis chair - Monitor urine output - Renally dose medications # Hypothyroidism - TSH 13.8 Free T4 0.98 - Continue home levothyroxine # Hypertension - Continue home carvedilol # Restless Leg Syndrome - Continue home gabapentin, ropinirole Updates: 09/21/2022: Adjusting anti-hypertensive regimen. Discharge pending outpatient dialysis chair arrangement. CM assistance appreciated. 09/22/2022: Hyperglycemia on morning labs. Treated with SQ insulin. Plan to drain 500 mL from Pleur-X today. Discharge pending outpatient dialysis chair arr angement. CM assistance appreciated. Mateo Rodriguez M.D.
[2022-09-24] MEDS: carvediloL 3.125 MG TAB PO SCH ×2 (06:00→17:03)
[2022-09-24] MEDS: LEVOTHYROXINE SOD 0.05 MG TABLET PO SCH (06:00)
[2022-09-24] MEDS: INSULIN -REGULAR HUMAN 50 UNIT/0.5 ML ML SQ SCH ×4 (07:30→21:00)
[2022-09-24] MEDS: ARFORMOTEROL TARTRATE 15 MCG/2 ML VIAL.NEB NEB SCH ×2 (08:00→20:00)
[2022-09-24] MEDS ORDERED: MIDODRINE HCL 5 MG TABLET PO SCH (08:00)
[2022-09-24] MEDS: FUROSEMIDE 40 MG TABLET PO SCH ×2 (09:57→16:28)
[2022-09-24] MEDS: SERTRALINE HCL 50 MG TAB PO SCH (09:57)
[2022-09-24] MEDS: LIDOCAINE 4% PATCH TOP SCH (09:57)
[2022-09-24] MEDS: ROPINIROLE HCL 1 MG TAB PO SCH (09:57)
[2022-09-24] MEDS: PANTOPRAZOLE 40MG TABLET PO SCH (09:57)
--- NOTE | 2022-09-24 15:15 | P.PN ---
Nephrology note (S) 09/23 UOP no longer as low but discussed case with pt and Dr. Diego her primary Educational Recruiter and decided it would be safer to continue OP HD in reduced freq or duration to ensure labs and fluid status remain stable and will re-assess over the following weeks, CrCl which was quite low when checked end of last week although oliguric then 09/24: BG have been labile, pt did have low BG event. Still with some cough and congestion but otherwise stable. Plans for HD discussed again (O) Vitals reviewed in the EMR Gen: Appears chronically ill Resp: b/l air entry, reduced at bases Rt > Lt, Rt pleurx catheter. LFNC present CVS: branden but regular Abd: Soft, ND, NT Ext: No sig LE edema Neuro: Awake, alert, oriented, non focal A/P) 1. Sub-acute HANSA on underlying CKD NOS with reports of (prior) dialysis dependence but off HD for several weeks. Cr level had trended upwards during admission, mod azotemia present, so did hold off on temp dialysis catheter removal last Fri. Given muscle mass loss, Cr level is more notable, eGFR calculators may be less reliable. Pt had initially failed to diurese (recorded UOP via Purewick has been low at times) and K level last week initially remained stubbornly mod elevated so had therefore not yet re-pursued dialysis catheter removal and Thurs did in fact did proceed with HD. 24h CrCl done end of last week was quite low but UOP collected for it was only 400 cc. Discussed with pt re-placing in center for reduced freq HD 2x/week in ARF status and pt is agreeable. Did consult CM. Pt now producing more urine but based on latest labs and as mentioned above, will cont with current plan and re-assess 24h urine CrCl in a few weeks. 2. Hyperkalemia, recurrent due to renal impairment, other -has persisted despite several measures -improved/resolved post HD, pt refusing Lokelma so did d/c for now 3. Recurrent right-sided pleural effusion NOS with history of PleurX catheter drain. Latest CXR still with effusions, continue intermittently draining catheter, cap fluid drainage at 500 cc. Will have HH assist with this, perform drainage on non HD days 4. Anemia secondary to chronic disease, currently stable 5. Chronic CHF unspecified, appears more HFpEF based on echo done end of last mo -BNP however > 10K, response to PO diuretics initially had been sub-optimal but now diuresing better. No peripheral edema present but pt still with pleural effusion(s). UF on HD limited by low BP, will monitor closely, did order Midodrine for use prior to HD Thor Amezcua MD, NATHANAEL
[2022-09-24] MEDS ORDERED: LOPERAMIDE HCL 2 MG CAPSULE PO STA (16:02)
[2022-09-24] MEDS: TEMAZEPAM 15 MG CAP PO SCH (22:10)
[2022-09-24] MEDS: GABAPENTIN 100 MG CAP PO SCH (22:10)
[2022-09-25] MEDS: IPRATROPIUM BROM 0.5MG/2.5ML NEB SCH ×3 (02:00→20:00)
[2022-09-25] MEDS: carvediloL 3.125 MG TAB PO SCH ×2 (05:47→17:26)
[2022-09-25] MEDS: LEVOTHYROXINE SOD 0.05 MG TABLET PO SCH (05:47)
[2022-09-25] MEDS: INSULIN -REGULAR HUMAN 50 UNIT/0.5 ML ML SQ SCH ×4 (07:30→21:00)
[2022-09-25] MEDS: ARFORMOTEROL TARTRATE 15 MCG/2 ML VIAL.NEB NEB SCH ×2 (07:41→20:00)
[2022-09-25] MEDS: BENZONATATE 100 MG CAP PO PRN (09:33)
[2022-09-25] MEDS: FUROSEMIDE 40 MG TABLET PO SCH ×2 (09:34→16:24)
[2022-09-25] MEDS: PANTOPRAZOLE 40MG TABLET PO SCH (09:34)
[2022-09-25] MEDS: LIDOCAINE 4% PATCH TOP SCH (09:34)
[2022-09-25] MEDS: SERTRALINE HCL 50 MG TAB PO SCH (09:34)
[2022-09-25] MEDS: ROPINIROLE HCL 1 MG TAB PO SCH (09:35)
[2022-09-25] MEDS ORDERED: METHYLPREDNISOLONE 125 MG INJ IV ONE (11:13)
[2022-09-25] MEDS ORDERED: ALBUTEROL 2.5 MG/3 ML NEB SOL NEB ONE (11:13)
[2022-09-25 11:44] LABS: Absolute Lymphocytes (CBC) 0.8 K/uL (0.7-4.9); Hematocrit 40.3 % (36.0-45.0); Lymphocytes % 16.7 % (15.3-44.8); MCV 89.1 fL (80-100); MPV 7.9 fL (7.6-11.3); RBC Red Blood Cell Count 4.52 M/uL (3.86-4.86)
--- NOTE | 2022-09-25 11:45 | P.PN ---
Nephrology note (S) 09/23 UOP no longer as low but discussed case with pt and Dr. Diego her primary Geomagnetist and decided it would be safer to continue OP HD in reduced freq or duration to ensure labs and fluid status remain stable and will re-assess over the following weeks, CrCl which was quite low when checked end of last week although oliguric then 09/24: BG have been labile, pt did have low BG event. Still with some cough and congestion but otherwise stable. Plans for HD discussed again 09/25: Pt tolerated HD yesterday without hypotension or other acute issues. Has been OOB, ambulating without orthostatic symptoms (O) Vitals reviewed in the EMR Gen: Appears chronically ill Resp: b/l air entry, reduced at bases Rt > Lt, Rt pleurx catheter. LFNC present CVS: branden but regular Abd: Soft, ND, NT Ext: No sig LE edema Neuro: Awake, alert, oriented, non focal A/P) 1. Sub-acute AHNSA on underlying CKD NOS with reports of (prior) dialysis dependence but off HD for several weeks. Cr level had trended upwards during admission, mod azotemia present, so did hold off on temp dialysis catheter removal last Fri. Given muscle mass loss, Cr level is more notable, eGFR calculators may be less reliable. Pt had initially failed to diurese (recorded UOP via Purewick has been low at times) and K level last week initially remained stubbornly mod elevated so had therefore not yet re-pursued dialysis catheter removal and Thurs did in fact did proceed with HD. 24h CrCl done end of last week was quite low but UOP collected for it was only 400 cc. Discussed with pt re-placing in center for reduced freq HD 2x/week in ARF status and pt is agreeable. Did consult CM. Awaiting OP chair time Pt now producing more urine but based on latest labs and as mentioned above, w ill cont with current plan and re-assess 24h urine CrCl in a few weeks. 2. Hyperkalemia, recurrent due to renal impairment, other -has persisted despite several measures -improved/resolved post HD, pt refusing Lokelma so did d/c for now 3. Recurrent right-sided pleural effusion NOS with history of PleurX catheter drain. Latest CXR still with effusions, continue intermittently draining catheter, cap fluid drainage at 500 cc. Will have assist with this, perform drainage on non HD days 4. Anemia secondary to chronic disease, currently stable 5. Chronic CHF unspecified, appears more HFpEF based on echo done end of last mo -BNP however > 10K, response to PO diuretics initially had been sub-optimal but now diuresing better. No peripheral edema present but pt still with pleural e ffusion(s). UF on HD limited by low BP, will monitor closely, did order Midodrine for use prior to HD Thor Amezcua MD, NATHANAEL
[2022-09-25 12:03] LABS: Potassium 5.1 mEq/L (3.5-5.1)
[2022-09-25 12:34] LABS: Hepatitis B surface AG Interp. Nonreactive (Nonreactive)
--- NOTE | 2022-09-25 14:36 | RAD REPORT ---
EXAM DESCRIPTION: RADChest Single View09/25/2022 2:26 pm CLINICAL HISTORY: pneumonia COMPARISON: Chest Single View dated 09/19/2022; Chest Pa And Lat (2 Views) dated 09/17/2022; Chest Singl e View dated 09/16/2022; Chest Single View dated 09/14/2022 TECHNIQUE: Portable AP view of the chest. FINDINGS: Right IJ dialysis catheter in place. Bilateral effusions larger on the right with underlyi ng airspace opacification, stable. No pneumothorax. The cardiomediastinal contours are unremarkable. IMPRESSION: Stable bilateral effusions larger on the right with underlying airspace opacification.
[2022-09-25] MEDS ORDERED: INSULIN -REGULAR HUMAN 50 UNIT/0.5 ML ML IV ONE (20:17)
[2022-09-25] MEDS: GABAPENTIN 100 MG CAP PO SCH (20:52)
[2022-09-25] MEDS: TEMAZEPAM 15 MG CAP PO SCH (20:52)
[2022-09-25 21:19] LABS: Potassium 4.3 mEq/L (3.5-5.1)
[2022-09-25 21:27] VITALS: O2SAT 96
[2022-09-26] MEDS: LEVOTHYROXINE SOD 0.05 MG TABLET PO SCH (06:25)
[2022-09-26] MEDS: carvediloL 3.125 MG TAB PO SCH ×2 (06:25→17:42)
[2022-09-26] MEDS: ARFORMOTEROL TARTRATE 15 MCG/2 ML VIAL.NEB NEB SCH (07:25)
[2022-09-26] MEDS: IPRATROPIUM BROM 0.5MG/2.5ML NEB SCH (07:25)
[2022-09-26] MEDS: PANTOPRAZOLE 40MG TABLET PO SCH (08:33)
[2022-09-26] MEDS: FUROSEMIDE 40 MG TABLET PO SCH ×2 (08:33→17:40)
[2022-09-26] MEDS: SERTRALINE HCL 50 MG TAB PO SCH (08:33)
[2022-09-26] MEDS: ROPINIROLE HCL 1 MG TAB PO SCH (08:33)
[2022-09-26] MEDS: LIDOCAINE 4% PATCH TOP SCH (08:34)
[2022-09-26] MEDS: INSULIN -REGULAR HUMAN 50 UNIT/0.5 ML ML SQ SCH ×3 (08:43→16:30)
--- NOTE | 2022-09-26 14:23 | P.PN ---
Nephrology note (S) 09/23 UOP no longer as low but discussed case with pt and Dr. Diego her primary Observation Nurse and decided it would be safer to continue OP HD in reduced freq or duration to ensure labs and fluid status remain stable and will re-assess over the following weeks, CrCl which was quite low when checked end of last week although oliguric then 09/24: BG have been labile, pt did have low BG event. Still with some cough and congestion but otherwise stable. Plans for HD discussed again 09/25: Pt tolerated HD yesterday without hypotension or other acute issues. Has been OOB, ambulating without orthostatic symptoms 09/26: BG remain elevated in the setting of recent steroids ordered by Pulm (O) Vitals reviewed in the EMR Gen: Appears chronically ill Resp: b/l air entry, reduced at bases Rt > Lt, Rt pleurx catheter. LFNC present CVS: branden but regular Abd: Soft, ND, NT Ext: No sig LE edema Neuro: Awake, alert, oriented, non focal A/P) 1. Sub-acute HANSA on underlying CKD NOS with reports of (prior) dialysis dependence but off HD for several weeks. Cr level had trended upwards during admission, mod azotemia present, so did hold off on temp dialysis catheter removal last Fri. Given muscle mass loss, Cr level is more notable, eGFR calculators may be less reliable. Pt had initially failed to diurese (recorded UOP via Purewick has been low at times) and K level last week initially remained stubbornly mod elevated so had therefore not yet re-pursued dialysis catheter removal and Thurs did in fact did proceed with HD. 24h CrCl done end of last week was quite low but UOP collected for it was only 400 cc. Discussed with pt re-placing in center for reduced freq HD 2x/week in [facility] status and pt is agreeable. Did consult CM. Awaiting OP chair time which has now been received. Last HD performed on . Pt now producing more urine but based on latest labs and as mentioned above, will cont with current plan and re-assess 24h urine CrCl in a few weeks. 2. Hyperkalemia, recurrent due to renal impairment, other -had initially persisted despite several measures -improved/resolved post HD, pt refusing Lokelma so did d/c for now 3. Recurrent right-sided pleural effusion NOS with history of PleurX catheter drain. Latest CXR still with effusions, continue intermittently draining catheter, cap fluid drainage at 500 cc. Will have HH assist with this, perform drainage on non HD days 4. Anemia secondary to chronic disease, currently stable 5. Chronic CHF unspecified, appears more HFpEF based on echo done end of last mo -BNP however > 10K, response to PO diuretics initially had been sub-optimal but now diuresing better. No peripheral edema present but pt still with pleural effusion(s). UF on HD limited by low BP, will monitor closely, did order Midodrine for use prior to HD although BP has been elevated currently likely due to steroids hTor Amezcua MD, NATHANAEL
[2022-09-26 17:18] VITALS: BP 123/56; TEMP 98.5
== END 2022-09-26 19:10 | disposition home health service (06) | DRG 919 ==
LOC: ER 14:51 → ERHOLD 20:57 → 2ND 21:34
PROVIDERS: ADMIT Internal Medicine Nephrology; ATTEND Hospitalist
PROC: 5A1D70Z Performance of Urinary Filtration, Intermittent, Less than 6 Hours Per Day (ICD-10-PCS; principal; 2022-09-19)
PROC: 5A1D70Z Performance of Urinary Filtration, Intermittent, Less than 6 Hours Per Day (ICD-10-PCS; 2022-09-24)
DX: T85.698A Other mechanical complication of other specified internal prosthetic devices, implants and grafts, initial encounter (principal); E43 Unspecified severe protein-calorie malnutrition; I50.33 Acute on chronic diastolic (congestive) heart failure; J96.01 Acute respiratory failure with hypoxia; I13.0 Hypertensive heart and chronic kidney disease with heart failure and stage 1 through stage 4 chronic kidney disease, or unspecified chronic kidney disease; R64 Cachexia; Z68.1 Body mass index [BMI] 19.9 or less, adult; N17.9 Acute kidney failure, unspecified; L89.626 Pressure-induced deep tissue damage of left heel; E11.22 Type 2 diabetes mellitus with diabetic chronic kidney disease; E03.9 Hypothyroidism, unspecified; E11.65 Type 2 diabetes mellitus with hyperglycemia; N18.32 Chronic kidney disease, stage 3b; E87.5 Hyperkalemia; E78.5 Hyperlipidemia, unspecified; M62.50 Muscle wasting and atrophy, not elsewhere classified, unspecified site; D63.8 Anemia in other chronic diseases classified elsewhere; G25.81 Restless legs syndrome; Z79.4 Long term (current) use of insulin; Z99.2 Dependence on renal dialysis
CPT/HCPCS: 36415; 36600; 71045; 71046; 71250; 80048; 80061; 82570; 82805; 82947; 83605; 83735; 83880; 84100; 84132; 84439; 84443; 84484; 85025; 85610; 86704; 86706; 87040; 87340; 87804; 87811; 90935; 93005; 94640; 94760; 97110; 97116; 97162; 97530; 99285; J1170; J1644; J1815; J1940; J2001; J2405; J2930; J7030; J7512; J7605; J7613; J7644; P9047